=== PATIENT | female | born 2000 | race Caucasian/White ===

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

== ENCOUNTER 2020-07-05 16:23 | Emergency (ER) | payer SELFPAY ==
[2018-11-15 21:35] VITALS: BMI 33.6
[2020-07-05 16:24] VITALS: BP 143/88; PULSE 100; RESP 15; TEMP 36.2; O2SAT 100; BMI 30.5
--- NOTE | 2020-07-05 17:01 | ED.VISSUMM ---
- ER Visit Summary Date of Service: 07/05/20 Chief Complaint: Chemical burn History of Present Illness: The patient is a 20 F who presents with a chemical burn that occurred 1 week ago. Patient states that liquid soap got onto the dorsum of her right foot. Patient noted some discharge and drainage from the area initially but states she has not had any discharge or drainage for the last 4 days. Patient denies any paresthesias or weakness. Patient denies any fevers or chills. Patient denies any redness or streaking. Patient states her last tetanus was within 5 years. Physical Examination: Vital signs are stable. Patient is afebrile. Patient is in no acute distress. Skin is warm and dry. There is a superficial burn and mild erythema over the dorsum of the right foot. Sensation was intact to light touch in all areas of the burn. There is no discharge or drainage. There is full range of motion of the right foot. Capillary refill is less than 2 seconds in all digits. Pedal pulses are equal bilaterally. There is no calf tenderness. There is no pain over the ankle. Emergency Department Course and Treatment: Bacitracin dressing was applied. Patient was instructed to keep area clean. Patient was instructed to change the dressing twice daily. Patient was instructed to follow-up with her primary care physician in 5 to 7 days. Patient understood and was agreeable with the plan. All questions were answered. Disposition: Discharge home Impression: Chemical burn right foot This note was generated with [employer] dictation software. It may contain incorrect words, spelling, and punctuation that were not noted in review of the chart prior to signing ED Disposition - Plan for ED Patient: Disposition: Home or Assisted Living Diagnosis: Chemical burn of right foot Instructions: ED BURN Chemical Referrals: NOT,DEFINED [Primary Care Provider] - 5-7 Days
== END 2020-07-05 17:31 | disposition home or self-care (01) ==
LOC: ED 17:26
PROVIDERS: Emergency Provider Emergency Medicine
DX: T25.421A Corrosion of unspecified degree of right foot, initial encounter (principal); X08.8XXA Exposure to other specified smoke, fire and flames, initial encounter; Y93.9 Activity, unspecified; Y92.9 Unspecified place or not applicable
CPT/HCPCS: 99281

== ENCOUNTER 2020-10-28 00:52 | Observation (INO) | payer OTHER, SELFPAY ==
[2020-10-28] VITALS (16 sets, daily range): BP systolic 117–149; BP diastolic 57–82; PULSE 87–99; RESP 14–19; TEMP 36.6–37.4; O2SAT 98–100; BMI 29.8
--- NOTE | 2020-10-28 01:05 | ED.DCSUM_ITS ---
History of Present Illness Chief Complaint: Abd Pain Informant: Patient Onset: Yesterday Current Severity: Moderate Maximum Severity: Moderate Narrative: Patient presents secondary to lower abdominal pain and cramping. Patient states pain started last evening and is a constant tight cramp. She has a history of PCOS and states that she always has vaginal bleeding. She is been passing larger clots tonight than normal. She has not yet taken anything for pain. - Past Medical History (1) PCOS (polycystic ovarian syndrome) Status: Chronic Past Medical History - Allergies and Home Meds Allergies/Adverse Reactions: Allergies No Known Allergies Allergy (Verified 10/28/20 00:58) Primary Care Physician: Care Physician,No Primary [Primary Care Provider] - Surgical History: no surgical history Smoking Status: Never smoker - Family History Maternal Family History: Reports: Hypertension Paternal Family History: Reports: - - Patient does not know. Review of Systems General: Denies: Chills, Fever Eyes: Denies: Visual changes - bilaterally ENT: Denies: Bilateral ear pain Cardiovascular: Denies: Chest pain Respiratory: Denies: Dyspnea, Cough Gastrointestinal: Reports: Abdominal pain. Denies: Vomiting, Diarrhea Genitourinary: Denies: Dysuria Musculoskeletal: Denies: Swelling, Extremity Pain Skin: Denies: Rash, Wounds Hematologic: Denies: Easy bruising, Easy bleeding Allergy: Denies: Uticaria Physical Exam Vital Signs/Narrative: Vital Signs Temp Pulse Resp BP Pulse Ox 10/28/20 00:53 98 F 140 H 18 149/74 H 98 Inital Vital Signs reviewed: Yes General: Well nourished, Well developed Head: Normocephalic ENT: Moist mucous membranes Neck: Supple Cardiovascular: Tachycardia Respiratory: No distress, CTA bilaterally Abdomen: Soft, Tender - Mild suprapubic tenderness to palpation, Hypoactive bowel sounds Skin: Pallor Neurological: Alert, Oriented x3 Psychological: Normal affect Diagnostic/Tx/Re-eval Laboratory Results 10/28/20 10/28/20 10/28/20 01:01 01:01 01:01 WBC 12.0 H RBC 3.66 L Hgb 6.0 L* Hct 23.6 L MCV 64.5 L MCH 16.4 L MCHC 25.4 L RDW Std Deviation 45.8 H RDW Coeff of Roz 19.9 H Plt Count 356 MPV 9.5 Immature Gran % (Auto) 0.500 Neut % (Auto) 87.8 H Lymph % (Auto) 7.9 L [place] % (Auto) 2.9 Eos % (Auto) 0.5 Baso % (Auto) 0.4 Absolute Neuts (auto) 10.5 H Absolute Lymphs (auto) 0.95 Nucleated RBC % 0 Diff Path Review May foll PT 12.8 INR 1.0 APTT 28.0 Sodium 138 Potassium 4.0 Chloride 108 H Carbon Dioxide 25.0 Anion Gap 5 BUN 14 Creatinine 0.74 Estim Creat Clear Calc 126.73 Est GFR (MDRD) Af Amer 127 Est GFR (MDRD) Non-Af 105 BUN/Creatinine Ratio 18.8 Glucose 130 H Calcium 9.2 Serum , Qual Crossmatch 10/28/20 10/28/20 01:01 01:02 WBC RBC Hgb Hct MCV MCH MCHC RDW Std Deviation RDW Coeff of Roz Plt Count MPV Immature Gran % (Auto) Neut % (Auto) Lymph % (Auto) [place] % (Auto) Eos % (Auto) Baso % (Auto) Absolute Neuts (auto) Absolute Lymphs (auto) Nucleated RBC % Diff Path Review PT INR APTT Sodium Potassium Chloride Carbon Dioxide Anion Gap BUN Creatinine Estim Creat Clear Calc Est GFR (MDRD) Af Amer Est GFR (MDRD) Non-Af BUN/Creatinine Ratio Glucose Calcium Serum , Qual NEGATIVE Crossmatch See Detail - Medical Decision Making Patient was given a small dose of fentanyl and Toradol to help with pain. Hemoglobin returns at 6. She has type and cross for 3 units. I will speak with TRAFFIC LAW ATTORNEY for admission and transfusion. Patient's heart rate was noted be 140 on arrival to the emergency room. Sitting at rest heart rate is 103. ED Disposition - Plan for ED Patient: Disposition: Acute Care Hospital [facility] Diagnosis: Acute blood loss anemia Referrals: Care Physician,No Primary [Primary Care Provider] -
[2020-10-28 01:10] LABS: Absolute Lymphocyte Count 0.95 X10^3/uL (0.83-4.51); Absolute Neutrophil Count 10.5 X10^3/uL (2.0-7.7); Basophil# 0.05 X10^3/uL; Basophil% 0.4 % (0-1); Eosinophil# 0.06 X10^3/uL; Eosinophils% 0.5 % (0-5); Hematocrit 23.6 % (37-47); Lymphocyte # 0.95 X10^3/ul (4.0); Lymphocyte % 7.9 % (19-41); Mean Corp Hgb Conc 25.4 g/dL (32-36); Mean Corpuscular Hgb 16.4 pg (27.0-32.0); Mean Corpuscular Volume 64.5 fL (81-99); Mean Platelet Vol. 9.5 fl (6.2-12.0); Monocyte# 0.35 X10^3/uL; Monocyte% 2.9 % (0-10); NRBC Flagged by Analyzer 0 % (0-5); Neutrophil # 10.49 X10^3/uL (2.7-7.7); Neutrophil % 87.8 % (47-70); Platelet Count 356 K/mm3 (150-450); RBC Distribution Width CV 19.9 % (11.6-14.6); RBC Distribution Width SD 45.8 fl (35.1-43.9); Red Blood Count 3.66 M/mm3 (4.2-5.4)
[2020-10-28] MEDS: 0.9% Normal Saline 1,000 ML 1000 ML IV (01:12)
[2020-10-28] MEDS: Ketorolac 15 MG/ML Vial IV (01:12)
[2020-10-28] MEDS: fentaNYL 100 MCG/2 ML Ampul 25 MCG IV (01:12)
[2020-10-28 01:15] LABS: Differential Indicated SCAN CRITERIA MET; Prothrombin Time (Protime)PT. 12.8 SECONDS (11.7-14.9)
[2020-10-28 01:16] LABS: Internal QC Validated? YES +Cl - CLEAR BKGD; Pregnancy, Serum, hCG Quali. NEGATIVE Negative
[2020-10-28 01:21] LABS: Anion Gap 5 (5-15); BUN 14 mg/dL (7-18); BUN/Creat Ratio 18.8 RATIO (10-20); Calcium,Total 9.2 mg/dL (8.5-10.1); Chloride 108 mmol/L (98-107); Creatinine, Serum 0.74 mg/dL (0.55-1.02); EST Glomerular Filtration Rate 105 mL/min (>60); Est Glom Filt Rate - Afr Amer 127 mL/min (>60); Estimated Creatinine Clearance 126.73 ml/min; Glucose 130 mg/dL (74-106); Sodium Level 138 mmol/L (136-145)
[2020-10-28] MEDS: DiphenhydrAMINE 50 MG/ML Syringe 25 MG IV (02:22)
--- NOTE | 2020-10-28 10:44 | PCM.HP.BLA ---
History and Physical Date of Admission: 10/28/20 History and Physical Sarina Talley, a 20 year old female 0 0 0 0 0, presents to the emergency room with extremely heavy bleeding. Hemoglobin was noted to be 6.5. -- Heavy Vaginal Bleeding -- Sarina was previously seen in the office in 2019 for oligomenorrhea with heavy menses. Patient was started on Iron and norethindrone 5 mg twice daily for the first 14 days of each cycle followed by 14 days of no medication. Patient states that she has stopped medication due to no refills about a year ago. Patient states that she did feel much better when taking the medications and cycles were more regular. She states that she was able to live a normal life. Patient states that since stopping the medications cycles have again become irregular and variable they are not as heavy as previously but she has had almost daily bleeding over the last 6 months. Patient also taking metformin for PCOS states that she was to follow up and have dose increased but had not followed up as suggested. Vaginal bleeding is extremely heavy with large clots; Additional comments are: to emergency room with orthostatic symptoms and HGB in the 6's.; Additional comments are: prior blood transfusion for hemoglobin in the fives, last evening received 3 units of packed red blood cells for recurrent severe bleeding from heavy menses. Patient has been attempting for about a year unsuccessfully. Her last pelvic ultrasound was approximately 3 to 4 years ago and was normal. MEDICATIONS HISTORY: Current medications prescribed by our practice are: 1. Colace 100 mg capsule, 1 tab PO bid prn constipation 2. ferrous gluconate 324 mg (38 mg iron) tablet, 1 tab PO bid 3. metformin ER 500 mg tablet,extended release 24 hr, 1 tab PO qdinner x 1 week, 2 tabs PO qdinner x 1 week, 2 tabs PO qbreakfast and dinner 4. norethindrone acetate 5 mg tablet, 2 tabs PO daily x 14 days each month; stopped about a year ago ALLERGIES: No Known Allergies Infections - vaccinated for chicken pox Illnesses - none Accidents - None Hospitalizations - None Review of Systems: GENERAL - Denies fever, or chills SKIN - Denies skin changes EYES - Denies visual changes EARS - Denies difficulty hearing NOSE - Denies nasal congestion or bleeding MOUTH - Denies sore throat or difficulty swallowing NECK - Denies pain or swelling RESPIRATORY - Denies shortness of breath or wheezing CARDIOVASCULAR - Denies palpitations or chest pain GASTROINTESTINAL - Denies nausea, vomiting, diarrhea, constipation GENITOURINARY - Denies dysuria, frequency of urination, incontinence of urine MUSCULOSKELETAL - Denies joint or muscle pain NEUROLOGICAL - Denies localized numbness or weakness PSYCHIATRIC - Denies depression or anxiety ENDOCRINE - Denies heat or cold intolerance, weight loss or gain HEMATO-IMMUNOLOGIC - Denies excesive bleeding with cuts SOCIAL HISTORY: Alcohol Use - denies drinking Smoking - denies smoking Diet - no special diet Lifestyle - moderate stress lifestyle Exercise - none Seat Belt Use - always 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 none PHYSICAL EXAM BP- 124/58 Sitting, Right arm, regular cuff Weight- 201 lbs Height- 65.5 inch CONSTITUTIONAL - NAD, well nourished, and well developed SKIN - No rash, lesions, or ulcers HEENT - normocephalic, atraumatic, sclerae anicteric LUNGS - normal respiratory rate and rhythm NEUROLOGICAL - normal gait, normal balance, normal motor PSYCHIATRIC - A and O to time, place, person, mood and affect ABDOMEN -no rebound or guarding but marked tenderness over suprapubic area likely from severe dysmenorrhea. No hepatosplenomegaly. ASSESSMENT/PLAN: 1. Acute posthemorrhagic anemia, Excessive And Frequent Menstruation With Irregular Cycle, Iron Deficiency Anemia Secondary To Blood Loss (chronic) and Polycystic Ovarian Syndrome History PCOS with likely anovulatory bleeding; will check pelvic ultrasound on day 10 of the cycle which would be November 3. Pt s/p transfusion for acute or chronic blood loss - anemia sx improved -CBC pending after 3 units last evening Reviewed importance of addressing underlying issue -patient is desirous of so we will start Prometrium on day 20 of cycle which would be November 14. Will then start letrozole or Clomid next cycle. We will give Ultram for severe dysmenorrhea with this cycle. Given the severity of dysmenorrhea and some tenderness over the uterus, will give Rocephin and doxycycline. Continue Metformin
--- NOTE | 2020-10-28 11:06 | DCINST_ITS ---
- Discharge Diagnoses Current Active Problems: Current Active and Chronic Problems (Last Updated 11/15/18 @ 20:[address] Tye Sanabria MD) Acute blood loss anemia (Acute) PCOS (polycystic ovarian syndrome) (Chronic) You will use the following diet at home:: No restrictions, Regular Discharge Activity: Return to Normal Activity, May Shower, May Take a Tub Bath May resume sexual activity in: 1-2 weeks Call your doctor if your incision/area has: Sudden Increased Bleeding, Increased Pain/ Swelling Call your doctor if you observe: Fever of 101 or Higher, Inability to urinate, Inability to have a bowel movement, Using more than one pad per hour Allergies/Adverse Reactions: Allergies No Known Allergies Allergy (Verified 10/28/20 00:58) Medications to take at Discharge Doxycycline 100 mg PO BID 10 Days #20 cap 10/28/20 Progesterone,Micronized [Prometrium] 200 mg PO DAILY #10 cap 10/28/20 traMADol [Ultram (G)] 50 mg PO Q6H PRN PRN 7 Days #20 tab 10/28/20 The following prescriptions were given: Doxycycline 100 mg PO BID 10 Days #20 cap Transmission Status: Pending to [facility] Progesterone,Micronized [Prometrium] 200 mg PO DAILY #10 cap Transmission Status: Pending to [facility] traMADol [Ultram (G)] 50 mg PO Q6H PRN PRN 7 Days #20 tab PRN Reason: Pain Score 6-10 Transmission Status: Pending to [facility] Primary Care Physician: Care Physician,No Primary [Primary Care Provider] - Test Results: Test results from this visit will be discussed in further detail at your follow- up appointment, if applicable. Please Follow Up With: Ziyad Mcdowell MD When: Call the office for an office ultrasound appointment for November 07, 2020.
[2020-10-28] MEDS: traMADol 50 MG Tablet PO (11:44)
[2020-10-28] MEDS: Ceftriaxone 500 MG Vial 250 MG IM (12:47)
[2020-10-29 13:32] LABS: Pathologist Review Reviewed
== END 2020-10-28 11:09 | disposition home or self-care (01) ==
LOC: ED 01:39 → PCU 02:05
PROVIDERS: Admitting Provider Obstetrics & Gynecology; Emergency Provider Emergency Medicine; Visit Provider Obstetrics & Gynecology
DX: D62 Acute posthemorrhagic anemia (principal); N92.0 Excessive and frequent menstruation with regular cycle; E28.2 Polycystic ovarian syndrome; N94.6 Dysmenorrhea, unspecified
CPT/HCPCS: 36415; 36430; 80048; 84703; 85018; 85025; 85610; 85730; 86850; 86900; 86901; 86920; 96372; 96374; 96375; 99218; 99285; 99406; J7030; J7040; P9016; A4216; G0378

== ENCOUNTER → 2020-11-07 13:48 | Outpatient (CLI) | payer OTHER, SELFPAY ==
[2020-10-28 03:10] VITALS: BMI 29.8
[2020-11-07 15:28] LABS: Hematocrit 33.8 % (37-47); Hemoglobin 9.4 g/dL (12.0-15.0)
[2020-11-07 16:03] LABS: Thyroid Stim Hormone (TSH) 1.63 uIU/mL (0.358-3.74)
== END ==
LOC: WOBLAB 13:49
PROVIDERS: Visit Provider Obstetrics & Gynecology
DX: D50.0 Iron deficiency anemia secondary to blood loss (chronic) (principal)
CPT/HCPCS: 36415; 84443; 85014; 85018

== ENCOUNTER 2020-11-08 09:26 | Day surgery (SDC) | payer OTHER, SELFPAY ==
[2020-10-28 03:10] VITALS: BMI 29.8
--- NOTE | 2020-11-07 20:58 | HP.PCM_ITS ---
History and Physical Date of Admission: 11/08/20 HISTORY OF PRESENT ILLNESS: On 11/07/2020, Sarina Talley, a 20 year old female 0 0 0 0 0, presented for: -- Menorrhagia, Blood Loss Anemia -- Sarina presents here today for ED follow-up from Abdominal pain with chronic blood loss(records attached). 20 y.o. G 0 P 0 non-smoker with irregular bleeding with LMP of 11-02-20 with continual bleeding daily. 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 Medication and Allergy lists up-dated. PAULIE Still bleeding about like when she went to ER. -- heavy vaginal bleeding which began 5 days ago. Sarina claims it started gradually. It is located in the vagina. Severity is extremely heavy with large clots; stopped this AM. Additional comment: This was third transfusion for blood loss. ALLERGIES: No Known Allergies MEDICATIONS HISTORY: Current medications prescribed by our practice are: 1. Colace 100 mg capsule, 1 tab PO bid prn constipation 2. ferrous gluconate 324 mg (38 mg iron) tablet, 1 tab PO bid 3. metformin ER 500 mg tablet,extended release 24 hr, 1 tab PO qdinner x 1 week, 2 tabs PO qdinner x 1 week, 2 tabs PO qbreakfast and dinner 4. norethindrone acetate 5 mg tablet, 2 tabs PO daily x 14 days each month REVIEW OF SYSTEMS: GENERAL - Denies fever, or chills SKIN - Denies skin changes EYES - Denies visual changes EARS - Denies difficulty hearing NOSE - Denies nasal congestion or bleeding MOUTH - Denies sore throat or difficulty swallowing NECK - Denies pain or swelling RESPIRATORY - Denies shortness of breath or wheezing CARDIOVASCULAR - Denies palpitations or chest pain GASTROINTESTINAL - Denies nausea, vomiting, diarrhea, constipation GENITOURINARY - Denies dysuria, frequency of urination, incontinence of urine MUSCULOSKELETAL - Denies joint or muscle pain NEUROLOGICAL - Denies localized numbness or weakness PSYCHIATRIC - Denies depression or anxiety ENDOCRINE - Denies heat or cold intolerance, weight loss or gain HEMATO-IMMUNOLOGIC - Denies excesive bleeding with cuts PAST HISTORY: Breast/Ovarian/Colon Cancers - maternal great aunt, maternal grandmother breast ca Infections - vaccinated for chicken pox Illnesses - none Accidents - None History of Abnormal PAPS - na Hospitalizations - None SURGICAL HISTORY: 1. none MENSTRUAL HISTORY: LMP Known?- ApproximateAmount/Duration - extended, Regularity - Irregular, Frequency - variable days, LMP - 11/02/20, Age Onset Menarche - 10 PAST PREGNANCIES: Total Pregnancies - 0; Full Term Pregnancies - 0; Premature - 0; Abortions, Induced - 0; Abortions, Spontaneous - 0; Ectopics - 0; Multiple Births - 0; Living Children - 0 FAMILY HISTORY: Mother - Gestational Diabetes; Mother - FH: Hypertension; MaternalGrandparent - Carcinoma of breast; SOCIAL HISTORY: Alcohol Use - denies drinking Smoking - denies smoking Diet - no special diet Lifestyle - moderate stress lifestyle and engaged Exercise - none Seat Belt Use - always 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 Excessive And Frequent Menstruation With Irregular Cycle PLAN BY DIAGNOSIS: 1. Acute posthemorrhagic anemia, Excessive And Frequent Menstruation With Irregular Cycle, Iron Deficiency Anemia Secondary To Blood Loss (chronic) and Polycystic Ovarian Syndrome Pt s/p transfusion for acute on chronic blood loss. Still bleeding. U/S shows large amount of tissue in the uterus but no fibroids. Plan to proceed with D and C and H/S. Discussed RBAs and all questions answered. Continue Norethindrone as given at discharge. Continue Metformin.
[2020-11-08] VITALS (11 sets, daily range): BP systolic 124–135; BP diastolic 75–90; PULSE 83–95; RESP 14–18; TEMP 36.4–36.5; O2SAT 96–100; BMI 29.5
--- NOTE | 2020-11-08 | IMM_PTH ---
PATIENT: ADDIS TORRES LOC: [facility] [place][id number] AGE/SX: 20/F ROOM: RE11/08/[address]: Dr. Ziyad Mcdowell MD : 2000 BED: DIS: 11/08/2020 SPEC #: [id number] RECD: 11/19/20 12:31 STATUS: IVANIA REJackie #: [id number] DEJUAN: 11/08/20 00:[address]: Ziyad Mcdowell DEPT: IMMUNOHISTOCHEMISTRY RECD BY: Danita Mixon ENTERED: 11/19/20 12:33 SP TYPE: IMMUNO OTHR DR: No Primary Care Phys Tissues: Endometrium, NOS Procedures: P53 (initial) MSH2 (add) MLH-1 (add) MSH6 (add) Anti-PMS2 (add) PHYSICIAN & INSTITUTION [place] [phone] SPECIMEN INFORMATION: Tissue Source: Endometrial curettings Clinical Info: Anemia, polycystic ovarian syndrome Specimen Number: [id number] #5 CPT code: 90487, 83243 x4 METHODOLOGY: Deparaffinized sections of prefer/formalin-fixed tissue or PAP/DQ stained slides are incubated with monoclonal/polyclonal antibodies/oligonucleotide probes. Localization is made via biotin free immunoperoxidase method. Appropriate controls are performed and reacted as expected. Results on target cell population are indicated in the following table: RESULTS: ANTIBODY / CLONE RESULT Block 5 P53 (DO-7) positive, 2%, dim MLH-1 (M1) positive MSH2 (25D12) positive MSH6 (44) positive PMS2 ([id number]) positive These tests were developed and their performance characteristics determined by [facility]. They may not have been cleared or approved by the U.S. Food and Drug Administration. The FDA has determined that such clearance or approval is not necessary. The above immunohistochemical/dualISH markers are ordered and reviewed by the Pathologist. INTERPRETATION: Endometrium, curettings: Endometrial adenocarcinoma. Result of Microsatellite Instability Study: Negative (no loss of mismatch protein; no microsatellite instability detected). AM:manan 11/20/2020
[2020-11-08 10:11] LABS: Hematocrit 36.2 % (37-47); Hemoglobin 10.2 g/dL (12.0-15.0); Mean Corp Hgb Conc 28.2 g/dL (32-36); Mean Corpuscular Hgb 20.9 pg (27.0-32.0); Mean Corpuscular Volume 74.3 fL (81-99); Mean Platelet Vol. 9.3 fl (6.2-12.0); POSITIVE MORPHOLOGY YES; Platelet Count 393 K/mm3 (150-450); RBC Distribution Width CV 26.8 % (11.6-14.6); RBC Distribution Width SD 69.3 fl (35.1-43.9); Red Blood Count 4.87 M/mm3 (4.2-5.4); White Blood Count 9.2 K/mm3 (4.4-11.0)
[2020-11-08 10:22] LABS: Prothrombin Time (Protime)PT. 12.7 SECONDS (11.7-14.9)
[2020-11-08 10:23] LABS: Partial Thromboplast Time 28.1 Seconds (24.1-36.2)
[2020-11-08 10:25] LABS: Internal QC Validated? YES +Cl - CLEAR BKGD; Pregnancy, Serum, hCG Quali. NEGATIVE Negative
[2020-11-08] MEDS: Lactated Ringers 1,000 ML 100 ML IV ×2 (10:28→13:15)
[2020-11-08 11:01] LABS: Scan Indicated on CBC? Y/N YES- FLAGS NOTED
--- NOTE | 2020-11-08 11:20 | PCM.OPRPT ---
Report of Operation Date of Procedure: 11/08/20 Pre-Operative Diagnosis: Menorrhagia, Blood Loss Anemia Post-Operative Diagnosis: Menorrhagia, Blood Loss Anemia Surgery/Procedure Performed:: Diagnostic Hysteroscopy, Dilation and Curettage Description of Surgical Findings:: 12 cm endometrial cavity with copious amounts of endometrial tissue present. No evidence of fibroids. Cervix appeared normal. Type of Anesthesia:: MAC Anesthesiologist: Moy Hernandez Specimen's removed: Endometrial curettings Estimated Blood Loss (mL): Minimal Fluids Replaced: Crystalloid Description of Procedure: Surgeon: Ziyad Mcdowell MD, FACOG Indications: This is a 20 year old patient who has the above diagnosis. The patient has been counseled regarding the risk and indications of this procedure including the possibility of bleeding, infection, and injury to surrounding structures such as bowel bladder. All questions were answered and we consider the patient well-informed. Procedure: The patient was taken to the operating room where after induction of general anesthesia, she was placed in the dorsolithotomy position and prepped and draped in the usual sterile fashion. The bladder was drained of approximately 200 cc of clear yellow urine with a catheter. Anterior cervix was grasped with the tenaculum and dilated to about 4-5 mm. A 3 mm hysteroscope was placed in the uterus of the above findings were noted. Cervix was dilated to about 7-8 mm and uterus was gently curetted removing all contents. Hysteroscope was reinserted and all material was noted to be removed. In the course of the procedure approximately 100 cc of saline distending media was used and virtually all of this was recovered. IV Pitocin and IM Methergine were given in the course of the procedure. Patient tolerated procedure well was taken to recovery room in satisfactory condition sponge instrument and needle counts were all reportedly correct. Estimated blood loss for the case was 250 cc. Specimens to pathology was endometrial curettings Complications: None Grafts/Implants Used: None - Complications None - Admit VTE Documentation VTE Present on Admission: Yes VTE Mechan Device Prophylaxis: SCD's
--- NOTE | 2020-11-08 11:24 | DCINST_ITS ---
Discharge Diet: No Restrictions Discharge Activity: Return to Normal Activity, May Shower, May Take a Tub Bath Call your doctor if you observe: Fever of 101 or Higher, Inability to urinate, Inability to have a bowel movement, Using more than one pad per hour Allergies/Adverse Reactions: Allergies No Known Allergies Allergy (Verified 10/28/20 00:58) Medications to take at Discharge Progesterone,Micronized [Prometrium] 200 mg PO DAILY #10 cap 10/28/20 Methylergonovine [Methergine] 0.2 mg PO Q6H #14 tab 11/08/20 RX: Ferrous Gluconate 325 mg PO BIDCM #60 tab 11/08/20 The following prescriptions were given: RX: Ferrous Gluconate 325 mg PO BIDCM #60 tab Transmission Status: Pending to [facility] Methylergonovine [Methergine] 0.2 mg PO Q6H #14 tab Transmission Status: Pending to [facility] Primary Care Physician: Care Physician,No Primary [Primary Care Provider] - Test Results: Test results from this visit will be discussed in further detail at your follow- up appointment, if applicable. Please Follow Up With: Ziyad Mcdowell MD When: 2 to 3 weeks
[2020-11-08] MEDS: Cefotetan 2 GM in 0.9% NS 100 ML IV (11:25)
--- NOTE | 2020-11-08 11:30 | EMB_PTH ---
PATIENT: ADDIS TORRES LOC: [facility] U#:[id number] AGE/SX: 20/F ROOM: RE11/08/[address]: Dr. Ziyad Mcdowell MD : 2000 BED: DIS: 11/08/2020 SPEC #: [id number] RECD: 11/08/20 14:22 STATUS: IVANIA REJackie #: [id number] DEJUAN: 11/08/20 11:[address]: Ziyad Mcdowell DEPT: SURGICAL PATHOLOGY RECD BY: Ana Pack ENTERED: 11/09/20 08:37 SP TYPE: ENDOM BX/C HARDY DR: No Primary Care Phys Tissues: Endometrium, NOS Procedures: Surgery Specimen Level IV HEADER OPERATION: Hysteroscopy, dilation and curettage PRE-OP DIAGNOSIS: Acute post-hemorrhagic anemia, excessive and frequent menstruation with irregular cycle, iron deficiency anemia secondary to blood loss, polycystic ovarian syndrome TISSUE SUBMITTED: Endometrial curettings MICROSCOPIC DIAGNOSIS Endometrial curettings: Endometrial adenocarcinoma, endometrioid type, FIGO I. See comment. ISAURA:manan 11/15/2020 COMMENT The specimen is sent to [facility] for expert opinion and reviewed by Dr. Still and above diagnosis is rendered. The complete report is viewable in the patient's EMR. The specimen also shows extensive complex hyperplasia with atypia. This case is discussed with Dr. Mcdowell on 11/13/19 & 11/16/19. Case has been reviewed in consultation with Dr. Clifford who concurs with the above diagnosis. IDC:AM MICROSCOPIC DESCRIPTION Slides are reviewed. GROSS DESCRIPTION Received in fixative is one container labeled with the patient's name and designated endometrial curettings. The specimen consists of multiple irregular fragments of suggs soft tissue mixed with numerous blood clots that in aggregate measure 10 x 8 x 4 cm. Migratory [employer] tissue is submitted in 15 cassettes. 90% of the suggs soft tissue is submitted. / ISAURA:manan 11/09/20 TC:0 CPT: 27979
[2020-11-08] MEDS: Acetaminophen 325 MG Tablet 650 MG PO (13:37)
== END 2020-11-08 14:44 | disposition home or self-care (01) ==
LOC: SDC 09:28 → AC 09:29
PROVIDERS: Anesthesiology; Visit Provider Obstetrics & Gynecology
PROC: 0UDB8ZZ Extraction of Endometrium, Via Natural or Artificial Opening Endoscopic (ICD-10-PCS; CPT 58558; principal; 2020-11-08 11:20)
DX: N92.0 Excessive and frequent menstruation with regular cycle (principal); D62 Acute posthemorrhagic anemia; E28.2 Polycystic ovarian syndrome
CPT/HCPCS: 58558; 84703; 85027; 85610; 85730; 86850; 86900; 86901; 87426; 88305; 88341; 88342; J7120; J2405

== ENCOUNTER → 2020-11-21 | Outpatient (CLI) | payer OTHER, SELFPAY ==
[2020-11-08 10:20] VITALS: BMI 29.5
== END | disposition home or self-care (01) ==
LOC: LABSPEC 14:22
PROVIDERS: Visit Provider Obstetrics & Gynecology
DX: R30.0 Dysuria (principal)
CPT/HCPCS: 87086; 87088

== ENCOUNTER → 2020-11-29 13:17 | Outpatient (CLI) | payer OTHER, SELFPAY ==
[2020-11-08 10:20] VITALS: BMI 29.5
--- NOTE | 2020-11-29 13:24 | MRI_ITS ---
MRI Pelvis without and with contrast 11/29/2020 1:43 PM CLINICAL HISTORY: Endometrial cancer COMPARISON: None TECHNIQUE: Prior to and following the uneventful intravenous administration of contrast, T1 and T2 weighted images in multiple planes were obtained through the pelvis. Prior to contrast administration, diffusion-weighted images were obtained through the pelvis. FINDINGS: UTERUS: Measures 11.2 x 6.4 x 9.2 cm TUMOR SITE: anterior TUMOR SIZE: Approximately 4.9 x 1.6 x 5.9 cm. MYOMETRIAL INVASION: less than 50% myometrial wall thickness invasion Invasion of the tumor into the cervix stroma: no Extension of tumor into adjacent structures: none; absence of ureteral dilatation. OVARIES: The ovaries are visualized and are abnormal in appearance. Right Ovary measures 4.5 x 2.2 x 3.7 cm and left ovary measures 4.2 x 2.4 x 4.2 cm. They each contain greater than 20 follicles. LYMPH NODES: There are few lymph nodes. The largest pelvic lymph nodes are located in the external iliac chain and measure 1.4 cm on the right and 1.5 cm on the left. These lymph nodes are less likely to be malignant. ADDITIONAL PELVIC FINDINGS: None BONES: No aggressive bone lesions. MRI/Pelvis W/WO Contrast IMPRESSION: Stage Ia endometrial cancer. No evidence of local invasion of surrounding structures or distant metastatic disease. Few prominent external iliac chain lymph nodes. Recommend close attention on follow-up. Polycystic ovarian syndrome. Electronically Signed: Boy Dee MD at 16:20 EDT Tel , Service support ,
== END ==
PROVIDERS: Referring Provider Obstetrics & Gynecology Gynecologic Oncology; Visit Provider Obstetrics & Gynecology Gynecologic Oncology
DX: C54.1 Malignant neoplasm of endometrium (principal)
CPT/HCPCS: 72197; A9575

== ENCOUNTER 2020-12-30 02:21 | Emergency (ER) | payer OTHER, SELFPAY ==
[2020-11-08 10:20] VITALS: BMI 29.5
[2020-12-30 02:21] VITALS: BP 140/109; PULSE 112; PULSE 116; RESP 15; TEMP 36.3; O2SAT 99; BMI 30.8
[2020-12-30 02:24] VITALS: BP 140/109; PULSE 118; RESP 15; TEMP 36.3; O2SAT 99
--- NOTE | 2020-12-30 02:28 | CT_ITS ---
STUDY: CTA CHEST REASON FOR EXAM: Female, 20 years old patient with dyspnea. RADIATION DOSAGE (If Supplied By Facility): CTDIvol = ( 11.33 ) mGy, DLP = ( 502.69 ) mGycm TECHNIQUE: The examination was performed with the intravenous administration of 100 mL of Isovue-370. Post-processing of the angiographic images was performed, with multiplanar reformation and 3D reconstruction. Individualized dose optimization techniques were used for this CT. COMPARISON: None. FINDINGS: Normal enhancement of the main pulmonary artery and right and left pulmonary arteries. Normal enhancement of the bilateral peripheral pulmonary arteries. There is no demonstrated pulmonary embolism. Normal thoracic aorta and visualized great vessels. There is no demonstrated aortic dissection. Normal heart and pericardium. Normal mediastinum. Normal hilar regions. Normal visualized trachea and bronchi. The lungs are well expanded. Normal pulmonary parenchyma. Normal pleura. Normal chest wall structures. Normal osseous structures. Normal visualized upper abdomen. There is a ureteral stent within the left renal collecting system. CT/CTA Chest W/WO Contrast IMPRESSION: No CTA demonstrated pulmonary embolism or arterial dissection. Electronically Signed: Zahida George MD at 4:05 EDT , Service support ,
--- NOTE | 2020-12-30 02:28 | EKG12_ITS ---
Test Reason : SOB Blood Pressure : / mmHG Vent. Rate : 102 BPM Atrial Rate : 102 BPM P-R Int : 140 ms QRS Dur : 082 ms QT Int : 324 ms P-R-T Axes : 042 069 041 degrees QTc Int : 422 ms Sinus tachycardia Otherwise normal ECG Confirmed by VANNESA MARTINEZ, PREM ([id number]), story editor KISHOR SOUZA ([id number]) on 01/02/2021 8:48:27 AM Referred By: PRICILLA Confirmed By:PREM GRANADO MD
[2020-12-30 02:31] VITALS: BP 136/93
--- NOTE | 2020-12-30 02:32 | ED.DCSUM_ITS ---
History of Present Illness Chief Complaint: Shortness of Breath Informant: Patient Onset: Yesterday Context: Gradual Onset Timing: Continuous Current Severity: Moderate Maximum Severity: Moderate Narrative: Patient is a 20-year-old female who presents to the emergency department shortness of breath. The patient has had a rather complex recent medical history. She was found to have stage Ia invasive endometrial cancer. She underwent hysterectomy which was complicated by uterine injury. The patient was admitted at [facility]. They attempted nephrostomy tube, but were unable to place it. She had a stent that was placed and she was discharged yesterday. The patient does have a PICC line and is on IV antibiotics with her recent procedure. She has not started any chemo or radiation. About 6 PM, she started to feel some shortness of breath. She describes tightness in the middle of her chest. She states they called squad, but she was feeling improved at the time they got there. Tonight, her symptoms returned. She states she cannot lie flat without feeling short of breath. She denies fever. She denies cough. Prior similar symptoms: No Recent Illness/Hospitalization: Yes Past Medical History - Allergies and Home Meds Allergies/Adverse Reactions: Allergies No Known Allergies Allergy (Verified 10/28/20 00:58) Primary Care Physician: Care Physician,No Primary [Primary Care Provider] - Prior records reviewed: Yes Past Medical History: - - Endometrial cancer, uterine injury, stent placement Surgical History: hysterectomy Smoking Status: Never smoker - Family History Maternal Family History: Reports: Hypertension Paternal Family History: Reports: - Review of Systems General: Denies: Chills, Fever, Sweats Eyes: Denies: Visual changes - bilaterally, Diplopia ENT: Denies: Rhinorrhea, Sore throat Cardiovascular: Denies: Chest pain, Palpitations Respiratory: Reports: Dyspnea, Cough Gastrointestinal: Denies: Abdominal pain, Nausea, Vomiting, Diarrhea, Melena, Hematochezia Genitourinary: Denies: Dysuria, Hematuria, Frequency Musculoskeletal: Denies: Back pain, Extremity Pain Skin: Denies: Rash, Wounds Neurological: Denies: Headache, Weakness, Numbness Physical Exam Vital Signs/Narrative: Vital Signs Temp Pulse Resp BP Pulse Ox 12/30/20 02:31 136/93 H 12/30/20 02:24 97.4 F L 118 H 15 140/109 H 99 12/30/20 02:21 97.4 F L 116 H 15 140/109 H 99 Inital Vital Signs reviewed: Yes General: Well nourished, Well developed, No Acute Distress Head: Normocephalic, Atraumatic Eyes: Perrl, EOMI ENT: Moist mucous membranes, No rhinorrhea Neck: Supple, Nontender Cardiovascular: No murmurs, Tachycardia Respiratory: No distress, CTA bilaterally, Chest nontender Abdomen: Soft, Nontender, Nondistended, Normal bowel sounds Back: Nontender, Normal Inspection Extremities: Nontender, No edema Skin: Normal color, No rash Neurological: Alert, Oriented x3, Cranial nerves II-XII grossly intact, Normal Strength, Normal Sensation Psychological: Normal affect, Normal Mood Diagnostic/Tx/Re-eval Clinical Impression(s) from Imaging Studies Chest CTA 12/30/20 02:28 IMPRESSION: No CTA demonstrated pulmonary embolism or arterial dissection. Electronically Signed: Zahida George MD at 4:05 EDT , Service support , Abnormal Lab Results 12/30/20 12/30/20 02:35 02:35 WBC 12.6 H RBC 4.56 Hgb 11.8 L Hct 37.9 MCV 83.1 MCH 25.9 L MCHC 31.1 L RDW Std Deviation 47.8 H RDW Coeff of Roz 17.6 H Plt Count 354 MPV 8.3 Immature Gran % (Auto) 0.500 Neut % (Auto) 71.1 H Lymph % (Auto) 18.9 L [place] % (Auto) 6.3 Eos % (Auto) 3.0 Baso % (Auto) 0.2 Absolute Neuts (auto) 9.0 H Absolute Lymphs (auto) 2.38 Nucleated RBC % 0 Sodium 138 Potassium 3.8 Chloride 106 Carbon Dioxide 27.0 Anion Gap 5 BUN 11 Creatinine 0.70 Estim Creat Clear Calc 133.98 Est GFR (MDRD) Af Amer 135 Est GFR (MDRD) Non-Af 112 BUN/Creatinine Ratio 15.6 Glucose 105 Calcium 9.3 Total Bilirubin 0.30 AST 9 L ALT 25 Alkaline Phosphatase 56 Total Protein 7.9 Albumin 3.3 Globulin 4.6 H Albumin/Globulin Ratio 0.7 L - Rhythm Strip Rhythm Strip: Sinus Tach Rate: 110 - EKG Initial EKG Interpretation: No Acute Injury Pattern, Sinus Tachycardia Prior: No Prior - Medical Decision Making Patient presents with shortness of breath. She states that it is worse when she lays flat. She did have recent hospitalization, with surgical procedure. I did want to rule out pulmonary embolus especially in light of her tachycardia. She was 99% on room air without bronchospasm. She was not tachypneic. Screening labs were obtained. The patient's hemoglobin is actually increased since her surgery. Her metabolic panel was unremarkable. Patient underwent CTA. There is no evidence of pulmonary embolus. There is no pneumothorax, infiltrate, or atelectasis. Patient still maintains oxygen saturations greater than 98%. At this point, I am unclear of the acute etiology of her dyspnea but I do not feel represents a dangerous process. The patient is reassured. Questions were answered. She was counseled on concerning symptoms and reasons to return. She will be discharged home. Impression 1. Shortness of breath ED Disposition - Plan for ED Patient: Disposition: Home or Assisted Living Instructions: ED Dyspnea Referrals: Care Physician,No Primary [Primary Care Provider] -
[2020-12-30 02:41] LABS: Absolute Lymphocyte Count 2.38 X10^3/uL (0.83-4.51); Basophil# 0.03 X10^3/uL; Basophil% 0.2 % (0-1); Eosinophil# 0.38 X10^3/uL; Hematocrit 37.9 % (37-47); Hemoglobin 11.8 g/dL (12.0-15.0); Lymphocyte # 2.38 X10^3/ul (0.83-4.51); Lymphocyte % 18.9 % (19-41); Mean Corp Hgb Conc 31.1 g/dL (32-36); Mean Corpuscular Hgb 25.9 pg (27.0-32.0); Mean Corpuscular Volume 83.1 fL (81-99); Mean Platelet Vol. 8.3 fl (6.2-12.0); Monocyte# 0.79 X10^3/uL; Monocyte% 6.3 % (0-10); NRBC Flagged by Analyzer 0 % (0-5); Neutrophil # 8.98 X10^3/uL (2.7-7.7); Neutrophil % 71.1 % (47-70); Platelet Count 354 K/mm3 (150-450); RBC Distribution Width CV 17.6 % (11.6-14.6); RBC Distribution Width SD 47.8 fl (35.1-43.9); Red Blood Count 4.56 M/mm3 (4.2-5.4); White Blood Count 12.6 K/mm3 (4.4-11.0)
--- NOTE | 2020-12-30 02:41 | ED.RN ---
pt had PICC line in place prior to arrival in left upper arm. intact, patent, pink. no s/s of infection. blood draw went well.
[2020-12-30 02:58] LABS: ALB/GLOB Ratio 0.7 RATIO (0.9-2.4); AST(SGOT) 9 U/L (15-37); Alanine Aminotransfer ALT/SGPT 25 U/L (13-56); Albumin, Serum 3.3 g/dL (3.2-5.0); Alkaline Phosphatase 56 U/L (45-117); Anion Gap 5 (5-15); BUN 11 mg/dL (7-18); BUN/Creat Ratio 15.6 RATIO (10-20); Calcium,Total 9.3 mg/dL (8.5-10.1); Chloride 106 mmol/L (98-107); EST Glomerular Filtration Rate 112 mL/min (>60); Est Glom Filt Rate - Afr Amer 135 mL/min (>60); Estimated Creatinine Clearance 133.98 ml/min; Globulin 4.6 g/dL (2.2-4.2); Glucose 105 mg/dL (74-106); Potassium 3.8 mmol/L (3.5-5.1); Protein, Total 7.9 g/dL (6.4-8.2); Sodium Level 138 mmol/L (136-145)
[2020-12-30] MEDS: Ondansetron 4 MG/2 ML Vial IV (03:18)
[2020-12-30] MEDS: DiphenhydrAMINE 50 MG/ML Syringe IV (03:19)
[2020-12-30 04:21] VITALS: BP 150/117; PULSE 112; RESP 26; O2SAT 98
== END 2020-12-30 04:23 | disposition home or self-care (01) ==
PROVIDERS: Emergency Provider Emergency Medicine
DX: R06.02 Shortness of breath (principal); R05 Cough; R07.89 Other chest pain; C54.1 Malignant neoplasm of endometrium; Z90.710 Acquired absence of both cervix and uterus
CPT/HCPCS: 36592; 71275; 80053; 85025; 93005; 96361; 96374; 96375; 99283; J7030; Q9967; A4216; J2405

== ENCOUNTER 2021-01-05 14:19 | Emergency (ER) | payer OTHER, SELFPAY ==
[2021-01-05 14:20] VITALS: BP 128/90; PULSE 116; RESP 16; TEMP 36.3; O2SAT 98; BMI 29.9
--- NOTE | 2021-01-05 14:58 | CT_ITS ---
STUDY: CT ABDOMEN AND PELVIS WITH CONTRAST REASON FOR EXAM: Female, 20 years old. 2 weeks s/p hysterectomy w L ureter lac RADIATION DOSAGE (If Supplied By Facility): CTDIvol = ( 12.52 ) mGy, DLP = ( 1351.12 ) mGycm TECHNIQUE: Transaxial images were obtained from the dome of the diaphragm to the symphysis pubis without oral contrast. 100ML ISOVUE 300 was administered. Sagittal and coronal images were reconstructed. Individualized dose optimization techniques were used for this CT. COMPARISON: MRI pelvis 11/29/2020 FINDINGS: The visualized lung bases are unremarkable. The visualized portions of the heart are within normal limits. Normal liver. Normal gallbladder and extrahepatic biliary system. Normal spleen. Normal pancreas. Normal bilateral adrenal glands. Normal right kidney. A ureter stent extends from the left kidney to the urinary bladder. Mild amount of periureteral edema. No hydronephrosis. Normal visualized stomach. Normal small intestine. Normal colon. The appendix is visualized and appears normal. Normal abdominal aorta. Normal inferior vena cava. Normal retroperitoneum. Normal urinary bladder. There is absence of the uterus consistent with a prior hysterectomy. There is a trace quantity of free fluid. Mild enlargement of the ovaries correlates to polycystic ovarian syndrome evident on MRI. Normal abdominal wall. Normal osseous structures. CT/Abdomen/Pelvis W IV Cont ONLY IMPRESSION: 1. Interval hysterectomy. 2. Left ureteral stent. Mild left periureteral edema. No focal fluid collection. 3. Minimal pelvic free fluid. Electronically Signed: Philip Bright MD ([place]) at 16:47 EDT , Service support ,
[2021-01-05] MEDS: 0.9% Normal Saline 1,000 ML 1000 ML IV (15:34)
[2021-01-05] MEDS: Ondansetron 4 MG/2 ML Vial IV (15:35)
[2021-01-05] MEDS: Morphine 4 MG/ML Syringe IV (15:35)
[2021-01-05 15:39] LABS: Absolute Lymphocyte Count 1.64 X10^3/uL (0.83-4.51); Absolute Neutrophil Count 8.5 X10^3/uL (2.0-7.7); Basophil# 0.04 X10^3/uL; Basophil% 0.4 % (0-1); Eosinophil# 0.23 X10^3/uL; Hematocrit 44.4 % (37-47); Hemoglobin 14.4 g/dL (12.0-15.0); Lymphocyte # 1.64 X10^3/ul (0.83-4.51); Lymphocyte % 14.4 % (19-41); Mean Corp Hgb Conc 32.4 g/dL (32-36); Mean Corpuscular Hgb 26.2 pg (27.0-32.0); Mean Corpuscular Volume 80.9 fL (81-99); Mean Platelet Vol. 8.7 fl (6.2-12.0); Monocyte# 0.94 X10^3/uL; Monocyte% 8.2 % (0-10); NRBC Flagged by Analyzer 0 % (0-5); Neutrophil # 8.52 X10^3/uL (2.7-7.7); Neutrophil % 74.7 % (47-70); Platelet Count 442 K/mm3 (150-450); RBC Distribution Width CV 15.2 % (11.6-14.6); RBC Distribution Width SD 41.4 fl (35.1-43.9); Red Blood Count 5.49 M/mm3 (4.2-5.4); White Blood Count 11.4 K/mm3 (4.4-11.0)
[2021-01-05 16:05] LABS: ALB/GLOB Ratio 0.8 RATIO (0.9-2.4); AST(SGOT) 38 U/L (15-37); Alanine Aminotransfer ALT/SGPT 26 U/L (13-56); Alkaline Phosphatase 55 U/L (45-117); Anion Gap 7 (5-15); BUN 11 mg/dL (7-18); BUN/Creat Ratio 11.7 RATIO (10-20); Calcium,Total 9.4 mg/dL (8.5-10.1); Chloride 97 mmol/L (98-107); Creatinine, Serum 0.94 mg/dL (0.55-1.02); EST Glomerular Filtration Rate 80 mL/min (>60); Est Glom Filt Rate - Afr Amer 97 mL/min (>60); Estimated Creatinine Clearance 99.77 ml/min; Globulin 5.1 g/dL (2.2-4.2); Glucose 89 mg/dL (74-106); Lipase 210 U/L (73-393); Potassium 4.2 mmol/L (3.5-5.1); Protein, Total 9.1 g/dL (6.4-8.2); Sodium Level 132 mmol/L (136-145)
--- NOTE | 2021-01-05 16:06 | EX.ED.DYSGE1 ---
HPI History of Present Illness Chief Complaint: Nausea/Vomiting Narrative Narrative: Patient is a 20-year-old with a complex recent medical history. She was found to have stage Ia invasive endometrial cancer. She underwent hysterectomy which was complicated by uterine injury. The patient was admitted at [facility]. They attempted nephrostomy tube, but were unable to place it. She had a stent that was placed. She had a neuroma and her urinalysis showed an ESBL infection and she was on meropenem. She was discharged 2 days ago after removal of the PICC line on Cipro. Patient reports that she has had nausea, vomiting, and diarrhea for the past week. She reports she is vomiting multiple times and having a loose stool once a day. She denies any blood in her emesis or her stool. No black tarry stools. She reports she has cramping diffuse abdominal pain is 10 out of 10 in severity. States that she was at [facility] for 4 days and they were unable to find a cause for this. PFSH PFS Medical History Cancer Cancer Menorrhagia Home Medications phenazopyridine 200 mg PO TID PRN 12/30/20 [History Last Taken Unknown] tamsulosin 0.4 mg PO DAILY 12/30/20 [History Last Taken Unknown] trospium 20 mg PO DAILY 12/30/20 [History Last Taken Unknown] metoclopramide HCl [Reglan] 10 mg PO Q6H PRN #20 tab 01/05/21 [Rx Last Taken Unknown] ondansetron 4 mg PO Q8H PRN #20 tab 01/05/21 [Rx Last Taken Unknown] Allergy/AdvReac Type Severity Reaction Status Date / Time No Known Allergies Allergy Verified 01/05/21 14:20 Social History Smoking Status: Never smoker ROS ROS ED Constitutional Constitutional ED: Denies chills, fever(s) or sweats Eyes Eyes: Denies change in vision ENT ENT ED: Denies sore throat Cardiovascular Cardiovascular: Denies chest pain Respiratory/Chest Respiratory/Chest: Denies cough, dyspnea or dyspnea on exertion Gastrointestinal Gastrointestinal: Reports abdominal pain, diarrhea, nausea and vomiting; Denies melena Genitourinary Genitourinary ED: Denies dysuria or urinary frequency Musculoskeletal Musculoskeletal: Denies myalgias Integumentary Denies rash Neurologic Neurologic: Denies headache(s), paresthesias or weakness EXAM Physical Exam Const Vital Signs: 01/05/21 14:20 Temperature 97.4 F L Temperature Source Temporal Pulse Rate 116 H Respiratory Rate 16 Blood Pressure 128/90 H Blood Pressure Mean 102 Pulse Ox 98 Oxygen Delivery Method Room Air Positive well nourished and well developed General Appearance ED: well developed HEENT Reports normocephalic and head/scalp atraumatic Eyes PERRL Neck no lymphadenopathy, supple and no JVD General: Negative for tenderness Resp normal respiratory effort and clear to auscultation bilaterally Cardio regular rate, regular rhythm and no murmurs GI non-distended GI Narrative: Moderate diffuse tenderness to palpation. No guarding, rebound, or peritoneal signs. Incisions from the laparoscopy are clean, dry, intact. There is no erythema or induration to suggest infection. Auscultation: normoactive bowel sounds Palpation: soft Back/Spine Back/Spine Narrative: Nontender. Extremity General Extremety ED: Negative for edema or tenderness General Extremity: Negative for edema Neuro oriented x3, CN's II-XII intact bilaterally and no sensory deficits noted Sensorium / Orientation: alert Motor Exam: strength 5/5 throughout Psych mental status grossly normal Skin no rashes or lesions noted MDM MDM MDM Narrative Medical decision making narrative: Patient had an IV placed. She was given morphine and Zofran IV. She is resting more comfortably. Treatment plan: I had a prolonged discussion with patient about her symptoms and symptomatic management of this. She will be changed to Zofran ODT and Reglan that is scheduled. Instructed to follow a brat diet. Follow-up with her primary care physician in 2 days for another exam. Return to the emergency department for any worsening symptoms. Lab Data Labs: Laboratory Results - last 24 hr 01/05/21 01/05/21 01/05/21 15:29 15:29 15:29 WBC 11.4 H RBC 5.49 H Hgb 14.4 Hct 44.4 MCV 80.9 L MCH 26.2 L MCHC 32.4 RDW Std Deviation 41.4 RDW Coeff of Roz 15.2 H Plt Count 442 MPV 8.7 Immature Gran % (Auto) 0.300 Neut % (Auto) 74.7 H Lymph % (Auto) 14.4 L [place] % (Auto) 8.2 Eos % (Auto) 2.0 Baso % (Auto) 0.4 Absolute Neuts (auto) 8.5 H Absolute Lymphs (auto) 1.64 Nucleated RBC % 0 Sodium 132 L Potassium 4.2 Chloride 97 L Carbon Dioxide 28.0 Anion Gap 7 BUN 11 Creatinine 0.94 Estim Creat Clear Calc 99.77 Est GFR (MDRD) Af Amer 97 Est GFR (MDRD) Non-Af 80 BUN/Creatinine Ratio 11.7 Glucose 89 Lactic Acid 1.2 Calcium 9.4 Total Bilirubin 0.50 AST 38 H ALT 26 Alkaline Phosphatase 55 Total Protein 9.1 H Albumin 4.0 Globulin 5.1 H Albumin/Globulin Ratio 0.8 L Lipase 210 Radiography Diagnostic Testing: Radiology Impression Abdomen/Pelvis CT 01/05/21 14:58 IMPRESSION: 1. Interval hysterectomy. 2. Left ureteral stent. Mild left periureteral edema. No focal fluid collection. 3. Minimal pelvic free fluid. Electronically Signed: Philip Bright MD ([place]) at 16:47 EDT , Service support , Discharge Plan Triage Chief Complaint: Nausea/Vomiting ED Provider: Altaf Mchugh Dx/Rx/DC Orders Instructions: ED Vomiting (Adult) Prescriptions: New ondansetron 4 mg tablet,disintegrating 4 mg PO Q8H PRN (Reason: nausea and vomiting) Qty: 20 RF: 0 metoclopramide HCl [Reglan] 10 mg tablet 10 mg PO Q6H PRN (Reason: nausea and vomiting) Qty: 20 RF: 0 No Action tamsulosin 0.4 MG capsule 0.4 mg PO DAILY RF: 0 phenazopyridine 100 MG tablet 200 mg PO TID PRN (Reason: burning with urination) RF: 0 trospium 20 MG tablet 20 mg PO DAILY RF: 0 Primary Care Provider: Care Physician,No Primary Referrals: Althea Partida [NON-STAFF] - 2 Days Care Physician,No Primary [Primary Care Provider] -
[2021-01-05 16:19] LABS: Lactic Acid 1.2 mmol/L (0.4-1.9)
== END 2021-01-05 17:52 | disposition home or self-care (01) ==
LOC: ED 15:39
PROVIDERS: Emergency Provider Emergency Medicine
DX: R11.2 Nausea with vomiting, unspecified (principal); C54.1 Malignant neoplasm of endometrium; Z90.710 Acquired absence of both cervix and uterus; Z79.899 Other long term (current) drug therapy
CPT/HCPCS: 74177; 80053; 83605; 83690; 85025; 96361; 96374; 96375; 99285; J7030; Q9967; A4216; J2405

== ENCOUNTER 2021-01-06 17:38 | Emergency (ER) | payer OTHER, SELFPAY ==
[2021-01-05 14:20] VITALS: BMI 29.9
[2021-01-06 17:38] VITALS: BP 150/96; PULSE 115; PULSE 116; RESP 18; TEMP 36.4; O2SAT 96; O2SAT 98
[2021-01-06] MEDS: Ondansetron 4 MG/2 ML Vial IV (18:30)
[2021-01-06] MEDS: HYDROmorphone 1 MG/ML Syringe 0.5 MG IV (18:30)
[2021-01-06] MEDS: 0.9% Normal Saline 1,000 ML 1000 ML IV (18:30)
[2021-01-06 18:35] VITALS: BP 139/90; PULSE 106; RESP 15; O2SAT 95
[2021-01-06 18:44] LABS: Mucous, Urine 0 SEEN /hpf (<or=2+); Squamous Epithelial Cells - UA 0 SEEN /hpf (5-10)
[2021-01-06 18:46] LABS: Color, Urine Yellow (Yellow); Glucose, Dipstick Normal (Normal); Leukocyte Esterase-Dipstick 100 /ul (Negative); Nitrite-Dipstick Positive (Negative); Occult Blood-Urine 250 /ul (Negative); Protein-Dipstick 100 mg/dl (Negative); Specific Gravity, Urine 1.025 (1.002-1.030); Urine Bilirubin Dipstick Negative (Negative); Urine Clarity Cloudy (Clear); Urine Urobilinogen Normal (Normal)
[2021-01-06 18:46] LABS: Absolute Lymphocyte Count 1.58 X10^3/uL (0.83-4.51); Absolute Neutrophil Count 12.2 X10^3/uL (2.0-7.7); Basophil# 0.05 X10^3/uL; Basophil% 0.3 % (0-1); Eosinophil# 0.22 X10^3/uL; Eosinophils% 1.5 % (0-5); Hematocrit 41.7 % (37-47); Hemoglobin 13.6 g/dL (12.0-15.0); Lymphocyte # 1.58 X10^3/ul (0.83-4.51); Lymphocyte % 10.5 % (19-41); Mean Corp Hgb Conc 32.6 g/dL (32-36); Mean Corpuscular Hgb 26.2 pg (27.0-32.0); Mean Corpuscular Volume 80.2 fL (81-99); Mean Platelet Vol. 8.8 fl (6.2-12.0); Monocyte# 0.93 X10^3/uL; Monocyte% 6.2 % (0-10); NRBC Flagged by Analyzer 0 % (0-5); Neutrophil # 12.16 X10^3/uL (2.7-7.7); Neutrophil % 81.2 % (47-70); Platelet Count 407 K/mm3 (150-450); RBC Distribution Width CV 15.1 % (11.6-14.6); RBC Distribution Width SD 41.1 fl (35.1-43.9)
[2021-01-06 18:52] LABS: Ketone-Dipstick 150 mg/dl (Negative)
[2021-01-06 19:03] LABS: Red Blood Cells-Urine > 100 SEEN /hpf (0-5); White Blood Cells 0-5 SEEN /hpf (0-5)
[2021-01-06 19:04] LABS: Bacteria RARE /hpf (None Seen)
[2021-01-06 19:13] LABS: AST(SGOT) 13 U/L (15-37); Alanine Aminotransfer ALT/SGPT 23 U/L (13-56); Albumin, Serum 4.1 g/dL (3.2-5.0); Alkaline Phosphatase 50 U/L (45-117); Anion Gap 10 (5-15); BUN 12 mg/dL (7-18); BUN/Creat Ratio 12.4 RATIO (10-20); Calcium,Total 9.6 mg/dL (8.5-10.1); Chloride 100 mmol/L (98-107); Creatinine, Serum 0.97 mg/dL (0.55-1.02); EST Glomerular Filtration Rate 77 mL/min (>60); Est Glom Filt Rate - Afr Amer 94 mL/min (>60); Estimated Creatinine Clearance 96.68 ml/min; Globulin 4.3 g/dL (2.2-4.2); Glucose 84 mg/dL (74-106); Potassium 3.5 mmol/L (3.5-5.1); Protein, Total 8.4 g/dL (6.4-8.2); Sodium Level 135 mmol/L (136-145)
--- NOTE | 2021-01-06 19:14 | ED.VIS.GI ---
HPI HPI - GI History of Present Illness Chief Complaint: Nausea/Vomiting Informant: patient Abdominal Pain/Flank Pain Onset: Today Context: Gradual Onset Timing: Continuous Quality: Aching Location: Diffuse Worsened by: Nothing Relieved by: Nothing Nausea/Vomiting/Emesis GI Symptom: Positive for Nausea and Vomiting Quality: Negative for Coffee ground and Hematemesis Diarrhea/Melena/Hematochezia GI Symptom: Positive for Diarrhea; Negative for Melena and Hematochezia Associated Symptoms Associated Symptoms: Positive for - (Urinary retention) Narrative Narrative: Patient presents with urinary retention and lower abdominal pain that is been getting progressively worse throughout the day today. Patient states she has been having some nausea and vomiting. Patient states the pain is aching. Patient states pain is worse over her lower abdomen. Patient states she has only been able to urinate small amounts. Patient admits to some diarrhea but denies any melena or hematochezia. Patient denies any fevers but admits to subjective chills. PFSH PFSH Medical History (Updated 01/06/21 @ 21:[address] Josué Reinoso DO) Cancer Cancer Menorrhagia Home Medications phenazopyridine 200 mg PO TID PRN 12/30/20 [History Last Taken Unknown] tamsulosin 0.4 mg PO DAILY 12/30/20 [History Last Taken Unknown] trospium 20 mg PO DAILY 12/30/20 [History Last Taken Unknown] metoclopramide HCl [Reglan] 10 mg PO Q6H PRN #20 tab 01/05/21 [Rx Last Taken Unknown] ondansetron 4 mg PO Q8H PRN PRN #20 tab 01/05/21 [Rx Last Taken Unknown] Allergy/AdvReac Type Severity Reaction Status Date / Time promethazine [From Phenergan] Allergy Vomiting Verified 01/06/21 17:41 Surgical History (Updated 01/06/21 @ 19:[address] Josué Reinoso DO) History of hysterectomy for cancer Social History Smoking Status: Never smoker ROS ROS ED Constitutional Constitutional ED: Reports chills and subjective; Denies fever(s) ENT ENT ED: Denies rhinorrhea or sore throat Cardiovascular Cardiovascular: Denies chest pain or palpitations Respiratory/Chest Respiratory/Chest: Denies cough or dyspnea Gastrointestinal Gastrointestinal: Reports abdominal pain, diarrhea, nausea and vomiting Genitourinary Genitourinary ED: Reports other Details: Urinary retention Musculoskeletal Musculoskeletal: Denies back pain or neck pain Integumentary Denies abscess or rash Neurologic Neurologic: Denies headache(s) or weakness Allergic/Immunologic Allergic/Immunologic ED: Denies mouth swelling or urticaria EXAM Physical Exam Const Vital Signs: 01/06/21 17:38 01/06/21 18:35 01/06/21 20:00 Temperature 97.6 F L Temperature Source Temporal Pulse Rate 115 H 106 H 101 H Respiratory Rate 18 15 18 Blood Pressure 150/96 H 139/90 H 154/101 H Blood Pressure Mean 114 106 118 Pulse Ox 98 95 99 Oxygen Delivery Method Room Air Room Air Positive well nourished and well developed General Appearance ED: well developed Neck supple and no JVD Resp normal respiratory effort and clear to auscultation bilaterally Cardio regular rhythm Rate: tachycardic GI non-distended Auscultation: normoactive bowel sounds Palpation: soft and tender LLQ, RLQ and suprapubic; Negative for guarding or rebound tenderness present Extremity full ROM General Extremety ED: Yes edema General Extremity: edema Neuro CN's II-XII intact bilaterally and no sensory deficits noted Sensorium / Orientation: alert, oriented to person, oriented to place and oriented to time Motor Exam: strength 5/5 throughout MDM MDM MDM Narrative Medical decision making narrative: Patient was given a dose of Zofran and Dilaudid. Patient was given IV fluids. CBC shows a leukocytosis of 15.0. Comprehensive metabolic profile is within normal limits. Urinalysis shows greater than 100 red blood cells and occult blood of 250 with positive nitrites. Alarcon catheter was placed. Patient felt better after this. Patient does want the Alarcon catheter removed. This was done. Patient was instructed to follow-up with her primary care physician in 5 to 7 days. Patient understood and was agreeable with the plan. All questions were answered. Lab Data Attestation: I reviewed the patient's lab results. Labs: Laboratory Results - last 24 hr 01/06/21 01/06/21 01/06/21 18:25 18:25 18:35 WBC 15.0 H RBC 5.20 Hgb 13.6 Hct 41.7 MCV 80.2 L MCH 26.2 L MCHC 32.6 RDW Std Deviation 41.1 RDW Coeff of Roz 15.1 H Plt Count 407 MPV 8.8 Immature Gran % (Auto) 0.300 Neut % (Auto) 81.2 H Lymph % (Auto) 10.5 L [place] % (Auto) 6.2 Eos % (Auto) 1.5 Baso % (Auto) 0.3 Absolute Neuts (auto) 12.2 H Absolute Lymphs (auto) 1.58 Nucleated RBC % 0 Sodium 135 L Potassium 3.5 Chloride 100 Carbon Dioxide 25.0 Anion Gap 10 BUN 12 Creatinine 0.97 Estim Creat Clear Calc 96.68 Est GFR (MDRD) Af Amer 94 Est GFR (MDRD) Non-Af 77 BUN/Creatinine Ratio 12.4 Glucose 84 Calcium 9.6 Total Bilirubin 0.50 AST 13 L ALT 23 Alkaline Phosphatase 50 Total Protein 8.4 H Albumin 4.1 Globulin 4.3 H Albumin/Globulin Ratio 1.0 Urine Color Yellow Urine Clarity Cloudy Urine pH 5.0 Ur Specific [place] 1.025 Urine Protein 100 H Urine Glucose (UA) Normal Urine Ketones 150 A* Urine Occult Blood 250 H Urine Nitrite Positive H Urine Bilirubin Negative Urine Urobilinogen Normal Ur Leukocyte Esterase 100 H Urine RBC > 100 SEEN Urine WBC 0-5 SEEN Ur Squamous Epith Cells 0 SEEN Urine Bacteria RARE Urine Mucus 0 SEEN Discharge Plan Triage Chief Complaint: Nausea/Vomiting ED Provider: Josué Reinoso Dx/Rx/DC Orders Clinical Impression: Acute urinary retention, Abdominal pain Instructions: ED Urinary Retention, Female Prescriptions: No Action tamsulosin 0.4 MG capsule 0.4 mg PO DAILY RF: 0 phenazopyridine 100 MG tablet 200 mg PO TID PRN (Reason: burning with urination) RF: 0 trospium 20 MG tablet 20 mg PO DAILY RF: 0 metoclopramide HCl [Reglan] 10 mg tablet 10 mg PO Q6H PRN (Reason: nausea and vomiting) Qty: 20 RF: 0 ondansetron 4 mg tablet,disintegrating 4 mg PO Q8H PRN PRN (Reason: Nausea) Qty: 20 RF: 0 Primary Care Provider: Care Physician,No Primary Referrals: Care Physician,No Primary [Primary Care Provider] - 3-5 Days Disposition Disposition: Home, self care
[2021-01-06 20:00] VITALS: BP 154/101; PULSE 101; RESP 18; O2SAT 99
[2021-01-06 21:32] VITALS: BP 132/87; PULSE 72; RESP 14; O2SAT 98
== END 2021-01-06 21:33 | disposition home or self-care (01) ==
PROVIDERS: Emergency Provider Emergency Medicine
DX: R33.9 Retention of urine, unspecified (principal); R11.2 Nausea with vomiting, unspecified; R10.30 Lower abdominal pain, unspecified; R19.7 Diarrhea, unspecified
CPT/HCPCS: 51702; 80053; 81001; 85025; 96361; 96374; 96375; 99284; J7030; J2405

== ENCOUNTER 2021-01-07 18:46 | Emergency (ER) | payer OTHER, SELFPAY ==
[2021-01-07 18:46] VITALS: BP 143/96; PULSE 119; RESP 18; TEMP 37.5; O2SAT 99; BMI 28.6
[2021-01-07 20:21] VITALS: BP 140/100; PULSE 104; RESP 18; O2SAT 99
[2021-01-07 21:00] VITALS: BP 147/106; PULSE 95; RESP 16; TEMP 37.3; O2SAT 100
[2021-01-07 21:16] LABS: Absolute Lymphocyte Count 1.33 X10^3/uL (0.83-4.51); Absolute Neutrophil Count 6.8 X10^3/uL (2.0-7.7); Basophil# 0.03 X10^3/uL; Basophil% 0.3 % (0-1); Eosinophils% 2.2 % (0-5); Hematocrit 40.2 % (37-47); Hemoglobin 12.8 g/dL (12.0-15.0); Lymphocyte # 1.33 X10^3/ul (0.83-4.51); Lymphocyte % 14.9 % (19-41); Mean Corp Hgb Conc 31.8 g/dL (32-36); Mean Corpuscular Hgb 26.3 pg (27.0-32.0); Mean Corpuscular Volume 82.5 fL (81-99); Mean Platelet Vol. 9.2 fl (6.2-12.0); Monocyte% 5.6 % (0-10); NRBC Flagged by Analyzer 0 % (0-5); Neutrophil # 6.83 X10^3/uL (2.7-7.7); Neutrophil % 76.8 % (47-70); Platelet Count 359 K/mm3 (150-450); RBC Distribution Width CV 15.1 % (11.6-14.6); RBC Distribution Width SD 42.7 fl (35.1-43.9); Red Blood Count 4.87 M/mm3 (4.2-5.4); White Blood Count 8.9 K/mm3 (4.4-11.0)
[2021-01-07 21:16] LABS: Bacteria 0 SEEN /hpf (None Seen); Squamous Epithelial Cells - UA 0 SEEN /hpf (5-10)
[2021-01-07 21:26] LABS: Color, Urine Yellow (Yellow); Glucose, Dipstick Normal (Normal); Ketone-Dipstick 5 mg/dl (Negative); Leukocyte Esterase-Dipstick 500 /ul (Negative); Nitrite-Dipstick Negative (Negative); Occult Blood-Urine 150 /ul (Negative); Protein-Dipstick 30 mg/dl (Negative); Urine Bilirubin Dipstick Negative (Negative); Urine Clarity Clear (Clear); Urine Urobilinogen Normal (Normal)
[2021-01-07 21:31] LABS: Red Blood Cells-Urine 5-10 SEEN /hpf (0-5); White Blood Cells 5-10 SEEN /hpf (0-5)
[2021-01-07 21:32] LABS: Mucous, Urine 1+ /hpf (<or=2+)
[2021-01-07] MEDS: Ondansetron 4 MG/2 ML Vial IV ×2 (21:39→23:27)
[2021-01-07] MEDS: HYDROmorphone 1 MG/ML Syringe IV (21:41)
[2021-01-07 21:45] LABS: Anion Gap 8 (5-15); BUN 9 mg/dL (7-18); BUN/Creat Ratio 11.8 RATIO (10-20); Calcium,Total 8.9 mg/dL (8.5-10.1); Chloride 102 mmol/L (98-107); Creatinine, Serum 0.76 mg/dL (0.55-1.02); EST Glomerular Filtration Rate 102 mL/min (>60); Est Glom Filt Rate - Afr Amer 123 mL/min (>60); Glucose 99 mg/dL (74-106); Potassium 4.1 mmol/L (3.5-5.1); Sodium Level 138 mmol/L (136-145)
[2021-01-07 22:00] VITALS: BP 137/92; PULSE 88; RESP 14; TEMP 37.4; O2SAT 95
--- NOTE | 2021-01-07 22:01 | ED.RN ---
contact [facility] for transfer, currently there hospital is full and er is full, dr. dunham spoke to there transfer center at this time
--- NOTE | 2021-01-07 22:43 | EX.ED.DYSGE1 ---
HPI History of Present Illness Chief Complaint: Complaint Informant: patient Narrative Narrative: 20-year-old female presents with urinary retention. Patient had partial hysterectomy on December 18 at [facility]. She states that she had a ureteral injury during the surgery. She had a stent placed in her ureter following that. She was seen in the ED last night for urinary retention. At that time she had a Alarcon catheter placed and felt improved. She had the Alarcon catheter removed at her request. This morning she still was unable to urinate. She has been unable to urinate throughout the day. She called her surgeon and was advised to come to the ED for evaluation. Prior similar symptoms: Yes Recent Illness/Hospitalization: Yes [facility] Medical History (Updated 01/07/21 @ 22:[address] Jagruti Castro MD) Cancer Cancer Menorrhagia Home Medications phenazopyridine 200 mg PO TID PRN 12/30/20 [History Last Taken Unknown] tamsulosin 0.4 mg PO DAILY 12/30/20 [History Last Taken Unknown] trospium 20 mg PO DAILY 12/30/20 [History Last Taken Unknown] metoclopramide HCl [Reglan] 10 mg PO Q6H PRN #20 tab 01/05/21 [Rx Last Taken Unknown] ondansetron 4 mg PO Q8H PRN PRN #20 tab 01/05/21 [Rx Last Taken Unknown] hydrocodone-acetaminophen 1 tab PO Q6H PRN PRN 3 Days #10 tablet 01/07/21 [Rx Last Taken Unknown] Allergy/AdvReac Type Severity Reaction Status Date / Time promethazine [From Phenergan] Allergy Vomiting Verified 01/06/21 17:41 morphine AdvReac Chest Verified 01/07/21 18:49 tightness Surgical History History of hysterectomy for cancer Social History Smoking Status: Never smoker ROS ROS ED Constitutional Constitutional ED: Denies fever(s) Eyes Eyes: Denies change in vision ENT ENT ED: Denies rhinorrhea or sore throat Cardiovascular Cardiovascular: Denies chest pain or palpitations Respiratory/Chest Respiratory/Chest: Denies cough or dyspnea Gastrointestinal Gastrointestinal: Reports abdominal pain, nausea and vomiting; Denies diarrhea Genitourinary Genitourinary ED: Reports other Details: Urinary retention ; Denies dysuria Musculoskeletal Musculoskeletal: Denies myalgias Integumentary Denies rash Neurologic Neurologic: Denies headache(s) Psychiatric Psychiatric: Denies suicidal thoughts EXAM Physical Exam Const Vital Signs: 01/07/21 18:46 01/07/21 20:21 01/07/21 21:00 Temperature 99.5 F H 99.2 F H Temperature Source Oral Oral Pulse Rate 119 H 104 H 95 Respiratory Rate 18 18 16 Blood Pressure 143/96 H 140/100 H 147/106 H Blood Pressure Mean 111 113 119 Pulse Ox 99 99 100 Oxygen Delivery Method Room Air Room Air Room Air 01/07/21 22:00 Temperature 99.4 F H Temperature Source Oral Pulse Rate 88 Respiratory Rate 14 Blood Pressure 137/92 H Blood Pressure Mean 107 Pulse Ox 95 Oxygen Delivery Method Room Air Positive well nourished and well developed General Appearance ED: well developed HEENT Reports normocephalic and head/scalp atraumatic Eyes PERRL and EOMs intact bilaterally Neck supple General: Negative for tenderness Chest Wall inspection of chest normal Resp normal respiratory effort and clear to auscultation bilaterally Cardio regular rate and regular rhythm GI non-distended GI Narrative: Suprapubic tenderness with no guarding or rebound Palpation: soft; Negative for guarding or rebound tenderness present no CVA tenderness Extremity normal to inspection Neuro oriented x3 Sensorium / Orientation: alert Psych mental status grossly normal MDM MDM MDM Narrative Medical decision making narrative: Patient was given Dilaudid, Zofran IV with improvement. Alarcon catheter was placed and she felt improved. Discussed with [facility] for possible transfer. Transfer line discussed with her surgeon Dr. Escobedo and he will see her in the office tomorrow. They do not feel transfer is necessary at this time. She will be sent home with a Alarcon leg bag. Patient is agreeable with this plan and will follow up with her [employer] tomorrow. She is currently on Cipro and will continue this. She has nausea medication at home. Lab Data Attestation: I reviewed the patient's lab results. Labs: Laboratory Results - last 24 hr 01/07/21 01/07/21 01/07/21 20:58 20:58 21:00 WBC 8.9 RBC 4.87 Hgb 12.8 Hct 40.2 MCV 82.5 MCH 26.3 L MCHC 31.8 L RDW Std Deviation 42.7 RDW Coeff of Roz 15.1 H Plt Count 359 MPV 9.2 Immature Gran % (Auto) 0.200 Neut % (Auto) 76.8 H Lymph % (Auto) 14.9 L [place] % (Auto) 5.6 Eos % (Auto) 2.2 Baso % (Auto) 0.3 Absolute Neuts (auto) 6.8 Absolute Lymphs (auto) 1.33 Nucleated RBC % 0 Sodium 138 Potassium 4.1 Chloride 102 Carbon Dioxide 28.0 Anion Gap 8 BUN 9 Creatinine 0.76 Estim Creat Clear Calc 123.40 Est GFR (MDRD) Af Amer 123 Est GFR (MDRD) Non-Af 102 BUN/Creatinine Ratio 11.8 Glucose 99 Calcium 8.9 Urine Color Yellow Urine Clarity Clear Urine pH 6.0 Ur Specific [place] 1.020 Urine Protein 30 H Urine Glucose (UA) Normal Urine Ketones 5 H Urine Occult Blood 150 H Urine Nitrite Negative Urine Bilirubin Negative Urine Urobilinogen Normal Ur Leukocyte Esterase 500 H Urine RBC 5-10 SEEN Urine WBC 5-10 SEEN Ur Squamous Epith Cells 0 SEEN Urine Bacteria 0 SEEN Urine Mucus 1+ Discharge Plan Triage Chief Complaint: Complaint ED Provider: Jagruti Castro Dx/Rx/DC Orders Clinical Impression: Acute urinary retention Instructions: ED Urinary Retention, Female Prescriptions: New hydrocodone-acetaminophen [hydrocodone-acetaminophen] 1 TABLET tablet 1 tab PO Q6H PRN PRN (Reason: Pain) 3 Days Qty: 10 RF: 0 No Action tamsulosin 0.4 MG capsule 0.4 mg PO DAILY RF: 0 phenazopyridine 100 MG tablet 200 mg PO TID PRN (Reason: burning with urination) RF: 0 trospium 20 MG tablet 20 mg PO DAILY RF: 0 metoclopramide HCl [Reglan] 10 mg tablet 10 mg PO Q6H PRN (Reason: nausea and vomiting) Qty: 20 RF: 0 ondansetron 4 mg tablet,disintegrating 4 mg PO Q8H PRN PRN (Reason: Nausea) Qty: 20 RF: 0 Primary Care Provider: Care Physician,No Primary Referrals: Madan Escobedo MD [NON-STAFF] - Care Physician,No Primary [Primary Care Provider] - Disposition Disposition: Home, self care
[2021-01-07 23:11] VITALS: BP 136/89; PULSE 94; RESP 14; O2SAT 98
[2021-01-07] MEDS: HYDROmorphone 0.5 MG/0.5 ML SYRINGE IV (23:29)
== END 2021-01-07 23:55 | disposition home or self-care (01) ==
PROVIDERS: Emergency Provider Emergency Medicine
DX: R33.9 Retention of urine, unspecified (principal); R11.2 Nausea with vomiting, unspecified; R10.9 Unspecified abdominal pain; Z90.711 Acquired absence of uterus with remaining cervical stump
CPT/HCPCS: 51702; 80048; 81001; 85025; 96374; 96375; 96376; 99284; A4216; J2405

== ENCOUNTER 2021-01-08 20:09 | Observation (INO) | payer OTHER, SELFPAY ==
[2021-01-07 18:46] VITALS: BMI 28.6
[2021-01-08 20:10] VITALS: BP 150/98; PULSE 110; RESP 16; TEMP 36.6; O2SAT 100; BMI 29.0
--- NOTE | 2021-01-08 20:34 | ED.VIS.GI ---
HPI <Dr. Jerrell Lozada MD - Last Filed: 01/08/21 22:54> HPI - GI History of Present Illness Chief Complaint: Nausea/Vomiting Informant: patient and parent Abdominal Pain/Flank Pain Onset: Weeks Timing: Intermittent Location: Diffuse Current Severity: Mild Maximum Severity: Mild Nausea/Vomiting/Emesis GI Symptom: Positive for Nausea and Vomiting Onset: Weeks Quality: Positive for Nonbilious; Negative for Blood streaks Severity: Mild Diarrhea/Melena/Hematochezia GI Symptom: Negative for Diarrhea Associated Symptoms Associated Symptoms: Negative for Dysuria Narrative Narrative: 20-year-old female status post robotic hysterectomy December 18 at [facility]. Done due to cervical cancer. Patient did have a operative complication involving her urethra which required stenting. She developed postop urinary retention and required a Alarcon catheter. That was removed today. According to her and her mom she is had intermittent nausea and vomiting over the last week with diffuse discomfort. She states she is able to urinate today and denies any dysuria today. She denies any fever. Prior similar symptoms: Yes Recent Illness/Hospitalization: Yes PFSH <Dr. Jerrell Lozada MD - Last Filed: 01/08/21 22:54> PFS Medical History Cancer Cancer Menorrhagia Home Medications tamsulosin 0.4 mg PO DAILY 12/30/20 [History Last Taken Unknown] metoclopramide HCl [Reglan] 10 mg PO Q6H PRN #20 tab 01/05/21 [Rx Last Taken Unknown] ondansetron 4 mg PO Q8H PRN PRN #20 tab 01/05/21 [Rx Last Taken Unknown] hydrocodone-acetaminophen 1 tab PO Q6H PRN PRN 3 Days #10 tablet 01/07/21 [Rx Last Taken Unknown] Allergy/AdvReac Type Severity Reaction Status Date / Time promethazine [From Phenergan] Allergy Vomiting Verified 01/08/21 20:10 morphine AdvReac Chest Verified 01/08/21 20:10 tightness Surgical History History of hysterectomy for cancer Social History Smoking Status: Never smoker ROS <Dr. Jerrell Lozada MD - Last Filed: 01/08/21 22:54> ROS ED Review of Systems ROS Unobtainable: Denies due to encephalopathy Constitutional Constitutional ED: Denies fever(s) ENT ENT ED: Denies sore throat Cardiovascular Cardiovascular: Denies chest pain Respiratory/Chest Respiratory/Chest: Denies dyspnea Gastrointestinal Gastrointestinal: Reports abdominal pain, nausea and vomiting Genitourinary Genitourinary ED: Denies dysuria or hematuria Musculoskeletal Musculoskeletal: Denies myalgias Integumentary Denies rash Neurologic Neurologic: Denies headache(s) Psychiatric Psychiatric: Denies depression Endocrine Endocrinology: Denies polyuria Hematologic/Lymphatic Hematologic/Lymphatic: Denies easy bruising Allergic/Immunologic Allergic/Immunologic ED: Denies urticaria EXAM <Dr. Jerrell Lozada MD - Last Filed: 01/08/21 22:54> Physical Exam Narrative Exam Narrative: Young female with an emesis bag held up to her mouth. Vital signs are stable afebrile. Mom present at bedside. HEENT exam unremarkable. Neck nontender. Lungs clear to auscultation bilaterally. Heart regular rhythm rate about 110 no murmur. Abdomen is soft. Nondistended normal bowel sounds no peritoneal signs. No signs of obstruction. Patient moving all 4 extremities. Calves are nontender without edema. Neurologically she is awake and alert. Const Vital Signs: 01/08/21 20:10 01/08/21 22:25 01/09/21 00:56 Temperature 97.9 F Temperature Source Temporal Pulse Rate 110 H 98 88 Respiratory Rate 16 16 12 Blood Pressure 150/98 H 144/94 H 123/90 H Blood Pressure Mean 115 110 101 Pulse Ox 100 98 100 Oxygen Delivery Method Room Air Room Air Room Air HEENT Reports moist mucous membranes normocephalic and atraumatic Eyes PERRL and EOMs intact bilaterally Neck no lymphadenopathy, supple and No no JVD Resp normal respiratory effort and clear to auscultation bilaterally Cardio regular rhythm and no murmurs Rate: tachycardic GI non-tender and non-distended Auscultation: normoactive bowel sounds Palpation: soft Back/Spine no CVA tenderness Extremity full ROM General Extremety ED: Negative for edema or tenderness General Extremity: Negative for edema Neuro moves all extremities Sensorium / Orientation: alert, oriented to person, oriented to place and oriented to time Motor Exam: strength 5/5 throughout Psych mental status grossly normal Skin Rashes: no rashes <Dr. Amado Turner MD - Last Filed: 01/09/21 01:14> Physical Exam Const Vital Signs: 01/08/21 20:10 01/08/21 22:25 01/09/21 00:56 Temperature 97.9 F Temperature Source Temporal Pulse Rate 110 H 98 88 Respiratory Rate 16 16 12 Blood Pressure 150/98 H 144/94 H 123/90 H Blood Pressure Mean 115 110 101 Pulse Ox 100 98 100 Oxygen Delivery Method Room Air Room Air Room Air MDM <Dr. Jerrell Lozada MD - Last Filed: 01/08/21 22:54> MDM MDM Narrative Medical decision making narrative: Female status post hysterectomy in December. Presents with nausea and vomiting. She be treated with IV fluids, pain medication and Zofran. Screening labs are being obtained. Lab Data Attestation: I reviewed the patient's lab results. Labs: Laboratory Results - last 24 hr 01/08/21 01/08/21 20:45 20:45 WBC 8.5 RBC 4.80 Hgb 12.6 Hct 39.7 MCV 82.7 MCH 26.3 L MCHC 31.7 L RDW Std Deviation 43.2 RDW Coeff of Roz 15.0 H Plt Count 336 MPV 9.2 Immature Gran % (Auto) 0.400 Neut % (Auto) 72.7 H Lymph % (Auto) 17.5 L [place] % (Auto) 6.1 Eos % (Auto) 2.9 Baso % (Auto) 0.4 Absolute Neuts (auto) 6.2 Absolute Lymphs (auto) 1.49 Nucleated RBC % 0 Sodium 140 Potassium 3.0 L Chloride 104 Carbon Dioxide 31.0 Anion Gap 5 BUN 7 Creatinine 0.93 Estim Creat Clear Calc 100.84 Est GFR (MDRD) Af Amer 98 Est GFR (MDRD) Non-Af 81 BUN/Creatinine Ratio 7.6 L Glucose 104 Calcium 9.2 CBC and chemistry panel was normal. Repeat exam at 10:30 PM unchanged. Patient received a second dose of nausea medication will be given IV Toradol now for pain. CT abdomen pelvis is being ordered. That will be checked out to the overnight physician. Radiography Diagnostic Testing: Radiology Impression Abdomen/Pelvis CT 01/08/21 22:33 IMPRESSION: Left ureteral stent in good position. There is minimal free fluid in the pelvis. Individualized dose optimization techniques were used for this CT. at 2332 Reported and signed by: Trenton Shelley MD Electronically Signed: Trenton Shelley MD at 23:31 EDT Tel , Service support , <Dr. Amado Turner MD - Last Filed: 01/09/21 01:14> [facility] MDM Narrative Medical decision making narrative: I have reached out to [facility]. Unfortunately, they have 83 patients in the emergency department, her bed blocked, and have no available beds. As the patient does not have evidence of an acute surgical emergency, I do feel that she can be symptomatically treated here in our hospital. The hospitalist is agreeable with plan for observation. Impression 1. Nausea and vomiting Lab Data Labs: Laboratory Results - last 24 hr 01/08/21 01/08/21 20:45 20:45 WBC 8.5 RBC 4.80 Hgb 12.6 Hct 39.7 MCV 82.7 MCH 26.3 L MCHC 31.7 L RDW Std Deviation 43.2 RDW Coeff of Roz 15.0 H Plt Count 336 MPV 9.2 Immature Gran % (Auto) 0.400 Neut % (Auto) 72.7 H Lymph % (Auto) 17.5 L [place] % (Auto) 6.1 Eos % (Auto) 2.9 Baso % (Auto) 0.4 Absolute Neuts (auto) 6.2 Absolute Lymphs (auto) 1.49 Nucleated RBC % 0 Sodium 140 Potassium 3.0 L Chloride 104 Carbon Dioxide 31.0 Anion Gap 5 BUN 7 Creatinine 0.93 Estim Creat Clear Calc 100.84 Est GFR (MDRD) Af Amer 98 Est GFR (MDRD) Non-Af 81 BUN/Creatinine Ratio 7.6 L Glucose 104 Calcium 9.2 Radiography Diagnostic Testing: Radiology Impression Abdomen/Pelvis CT 01/08/21 22:33 IMPRESSION: Left ureteral stent in good position. There is minimal free fluid in the pelvis. Individualized dose optimization techniques were used for this CT. at 2332 Reported and signed by: Trenton Shelley MD Electronically Signed: Trenton Shelley MD at 23:31 EDT Tel , Service support , Discharge Plan Triage Chief Complaint: Nausea/Vomiting ED Provider: Amado Turner Dx/Rx/DC Orders Prescriptions: No Action tamsulosin 0.4 MG capsule 0.4 mg PO DAILY RF: 0 metoclopramide HCl [Reglan] 10 mg tablet 10 mg PO Q6H PRN (Reason: nausea and vomiting) Qty: 20 RF: 0 ondansetron 4 mg tablet,disintegrating 4 mg PO Q8H PRN PRN (Reason: Nausea) Qty: 20 RF: 0 hydrocodone-acetaminophen [hydrocodone-acetaminophen] 1 TABLET tablet 1 tab PO Q6H PRN PRN (Reason: Pain) 3 Days Qty: 10 RF: 0 Primary Care Provider: Care Physician,No Primary
[2021-01-08] MEDS: 0.9% Normal Saline 1,000 ML 1000 ML IV (20:53)
[2021-01-08] MEDS: Ondansetron 4 MG/2 ML Vial IV ×2 (20:53→22:25)
[2021-01-08 20:56] LABS: Absolute Lymphocyte Count 1.49 X10^3/uL (0.83-4.51); Absolute Neutrophil Count 6.2 X10^3/uL (2.0-7.7); Basophil# 0.03 X10^3/uL; Basophil% 0.4 % (0-1); Eosinophil# 0.25 X10^3/uL; Eosinophils% 2.9 % (0-5); Hematocrit 39.7 % (37-47); Hemoglobin 12.6 g/dL (12.0-15.0); Lymphocyte # 1.49 X10^3/ul (0.83-4.51); Lymphocyte % 17.5 % (19-41); Mean Corp Hgb Conc 31.7 g/dL (32-36); Mean Corpuscular Hgb 26.3 pg (27.0-32.0); Mean Corpuscular Volume 82.7 fL (81-99); Mean Platelet Vol. 9.2 fl (6.2-12.0); Monocyte# 0.52 X10^3/uL; Monocyte% 6.1 % (0-10); NRBC Flagged by Analyzer 0 % (0-5); Neutrophil # 6.18 X10^3/uL (2.7-7.7); Neutrophil % 72.7 % (47-70); Platelet Count 336 K/mm3 (150-450); RBC Distribution Width SD 43.2 fl (35.1-43.9); White Blood Count 8.5 K/mm3 (4.4-11.0)
[2021-01-08] MEDS: HYDROmorphone 1 MG/ML Syringe IV (21:05)
[2021-01-08 21:17] LABS: Anion Gap 5 (5-15); BUN 7 mg/dL (7-18); BUN/Creat Ratio 7.6 RATIO (10-20); Calcium,Total 9.2 mg/dL (8.5-10.1); Chloride 104 mmol/L (98-107); Creatinine, Serum 0.93 mg/dL (0.55-1.02); EST Glomerular Filtration Rate 81 mL/min (>60); Est Glom Filt Rate - Afr Amer 98 mL/min (>60); Estimated Creatinine Clearance 100.84 ml/min; Glucose 104 mg/dL (74-106); Sodium Level 140 mmol/L (136-145)
[2021-01-08 22:25] VITALS: BP 144/94; PULSE 98; RESP 16; O2SAT 98
--- NOTE | 2021-01-08 22:33 | CT_ITS ---
EXAM: CT ABDOMEN AND PELVIS WITH INTRAVENOUS CONTRAST : 2000 CLINICAL INDICATION: abd pain,nausea and vomiting,pt post-op hysterectomy with lt ureter injury on 12-18-20- done for cervical cancer TECHNIQUE: Helically acquired images were obtained of the abdomen and pelvis with intravenous contrast. This CT exam was performed using one or more of the following dose reduction techniques: automated exposure control, adjustment of the mA and/or kV according to patient size, and/or use of iterative reconstruction technique. This report was created using [employer] report generation technology. CONTRAST: IV 100mL Isovue-370 COMPARISON: None. FINDINGS: LOWER THORAX: Unremarkable. Lung bases are clear. No cardiomegaly. No significant pericardial effusion. ABDOMEN: LIVER: Unremarkable. Homogeneous. No focal mass. GALLBLADDER AND BILE DUCTS: Unremarkable. No calcified gallstones. No gallbladder distention or wall edema. No intra- or extrahepatic biliary ductal dilation. PANCREAS: Unremarkable. No focal cystic or solid mass. SPLEEN: Unremarkable. Normal size without focal cystic or solid mass. ADRENALS: Unremarkable. No nodules. KIDNEYS AND URETERS: Delayed images show normal excretion of contrast from both kidneys. Normal renal size and position. No hydronephrosis. STOMACH AND BOWEL: Unremarkable. No stomach or bowel distention. No focal inflammatory change. PELVIS: APPENDIX: No evidence of acute appendicitis. BLADDER: Unremarkable. REPRODUCTIVE: Unremarkable as visualized. No mass. ABDOMEN and PELVIS: INTRAPERITONEAL SPACE: There is a mild amount of free fluid in the pelvis. No free air. BONES/JOINTS: Unremarkable. No suspicious lytic or blastic abnormality. SOFT TISSUES: Unremarkable. No discrete abdominal or pelvic wall hernia. VASCULATURE: Unremarkable. Abdominal aorta is non-dilated. LYMPH NODES: Unremarkable. No enlarged lymph nodes. TUBES, LINES AND DEVICES: Left ureteral stent is in place. CT/Abdomen/Pelvis W IV Cont ONLY IMPRESSION: Left ureteral stent in good position. There is minimal free fluid in the pelvis. Individualized dose optimization techniques were used for this CT. at 2332 Reported and signed by: Trenton Shelley MD Electronically Signed: Trenton Shelley MD at 23:31 EDT Tel , Service support ,
[2021-01-08] MEDS: Ketorolac 30 MG/ML Syringe IV (22:39)
[2021-01-08] MEDS: HYDROmorphone 0.5 MG/0.5 ML SYRINGE IV (23:48)
[2021-01-08] MEDS: Potassium Chloride 10mEq/100mL 10 MEQ/100 ML IV.SOLN. 100 MEQ IV BOLUS (23:52)
[2021-01-09] VITALS (10 sets, daily range): BP systolic 123–144; BP diastolic 74–103; PULSE 84–108; RESP 12–18; TEMP 36.7–37.4; O2SAT 96–100; BMI 29.3
--- NOTE | 2021-01-09 00:48 | ED.RN ---
PER REQUEST OF DR PLEITEZ, CALLED [facility] TO CHECK THE STATUS OF THE REQUEST FOR TRANSFER, PER JUAN AT [facility], HE HAS NOT TRIED TO CONTACT THEIR DR I AM THE ONLY ONE WORKING [facility], AND I WILL GET TO YOUR PT WHEN I GET TO YOUR PT.
[2021-01-09] MEDS: Potassium Chloride 10mEq/100mL 10 MEQ/100 ML IV.SOLN. 100 MEQ IV BOLUS (00:57)
--- NOTE | 2021-01-09 01:15 | PCM.HP.STD ---
Documented by User: JONY Bronson 01/09/21 01:28 HPI - General HPI Narrative ADDIS TORRES, is a 20 F who presents with intractable nausea and vomiting. Patient is a status post robotic hysterectomy on December 18 at [facility]. Patient reports that she had a D&C performed here at which time it was found that patient had endometrial cancer and she was referred for a hysterectomy. Patient reports that she still has both ovaries and fallopian tubes. Patient had developed postop urinary retention which required a Alarcon catheter which was removed earlier today and over the last week she has had intermittent nausea and vomiting with abdominal pain. Patient denies fever, chills, dysuria, hematuria, melena, diarrhea, constipation. [facility] Medical History Endometrial cancer Menorrhagia Home Medications tamsulosin 0.4 mg PO DAILY 12/30/20 [History Last Taken Unknown] metoclopramide HCl [Reglan] 10 mg PO Q6H PRN #20 tab 01/05/21 [Rx Last Taken Unknown] ondansetron 4 mg PO Q8H PRN PRN #20 tab 01/05/21 [Rx Last Taken Unknown] hydrocodone-acetaminophen 1 tab PO Q6H PRN PRN 3 Days #10 tablet 01/07/21 [Rx Last Taken Unknown] Allergy/AdvReac Type Severity Reaction Status Date / Time promethazine [From Phenergan] Allergy Vomiting Verified 01/08/21 20:10 morphine AdvReac Chest Verified 01/08/21 20:10 tightness Surgical History History of hysterectomy for cancer Social History Smoking Status: Never smoker ROS Constitutional Constitutional: Denies anorexia, chills or fatigue Cardiovascular Cardiovascular: Denies chest pain, edema or palpitations Respiratory/Chest Respiratory/Chest: Denies cough or hemoptysis Gastrointestinal Gastrointestinal: Reports abdominal pain, nausea and vomiting; Denies constipation or diarrhea Genitourinary Genitourinary: Denies dysuria or hematuria Musculoskeletal Musculoskeletal: Denies back pain, extremity pain or joint pain Integumentary Integumentary: Denies dry skin Neurologic Neurologic: Denies abnormal gait or abnormal speech Psychiatric Psychiatric: Denies anxiety or depression Endocrine Endocrinology: Denies change in body appearance Hematologic/Lymphatic Hematologic/Lymphatic: Denies anemia, easy bleeding or easy bruising Vital Signs Vital Signs Vital Signs: 01/08/21 20:10 01/08/21 22:25 01/09/21 00:56 Temperature 97.9 F Temperature Source Temporal Pulse Rate 110 H 98 88 Respiratory Rate 16 16 12 Blood Pressure 150/98 H 144/94 H 123/90 H Blood Pressure Mean 115 110 101 Pulse Ox 100 98 100 Oxygen Delivery Method Room Air Room Air Room Air Physical Exam Const alert and oriented x3 General Appearance: cooperative HEENT normocephalic and head/scalp atraumatic Eyes PERRL and EOMs intact bilaterally Neck supple, no JVD and thyroid normal General: trachea midline Lymph Lymphatic: no lymphadenopathy noted Resp normal respiratory effort, normal air movement and clear to auscultation bilaterally Cardio regular rate, regular rhythm, S1 normal heart sound and S2 normal heart sound GI Auscultation: hypoactive bowel sounds Palpation: tender Extremity normal capillary refill and no clubbing, cyanosis or edema General Extremity: no tenderness to palpation of joints or extremities Skin General Skin Exam: no breakdown and turgor normal Lesions: no lesions Rashes: no rashes Neuro CN's II-XII intact bilaterally Psych thought process normal, cooperative and affect normal Appearance: appropriate Lab / Micro Data Result Diagrams: 01/08/21 20:45 01/08/21 20:45 Labs: Laboratory Results - last 24 hr 01/08/21 01/08/21 20:45 20:45 WBC 8.5 RBC 4.80 Hgb 12.6 Hct 39.7 MCV 82.7 MCH 26.3 L MCHC 31.7 L RDW Std Deviation 43.2 RDW Coeff of Roz 15.0 H Plt Count 336 MPV 9.2 Immature Gran % (Auto) 0.400 Neut % (Auto) 72.7 H Lymph % (Auto) 17.5 L [place] % (Auto) 6.1 Eos % (Auto) 2.9 Baso % (Auto) 0.4 Absolute Neuts (auto) 6.2 Absolute Lymphs (auto) 1.49 Nucleated RBC % 0 Sodium 140 Potassium 3.0 L Chloride 104 Carbon Dioxide 31.0 Anion Gap 5 BUN 7 Creatinine 0.93 Estim Creat Clear Calc 100.84 Est GFR (MDRD) Af Amer 98 Est GFR (MDRD) Non-Af 81 BUN/Creatinine Ratio 7.6 L Glucose 104 Calcium 9.2 Radiology Impression Abdomen/Pelvis CT 01/08/21 22:33 IMPRESSION: Left ureteral stent in good position. There is minimal free fluid in the pelvis. Individualized dose optimization techniques were used for this CT. at 2332 Reported and signed by: Trenton Shelley MD Electronically Signed: Trenton Shelley MD at 23:31 EDT Tel , Service support , Assessment & Plan Assessment/Plan (1) Nausea and vomiting: Status: Acute Code(s): R11.2 - Nausea with vomiting, unspecified (2) Hypokalemia: Status: Acute Code(s): E87.6 - Hypokalemia Plan: -Admit to [facility] for observation -Clear liquid diet advance as tolerated -Intake and output -Vital signs per protocol -CBC and CMP in a.m. -Magnesium level stat -LR 150ml/hr -Continue Kneeland for pain control -Continue tamsulosin due to previous urinary retention -Potassium chloride p.o. 40 mEq x 1, patient received 20 mEq IV in ER -As needed IV Zofran ordered DVT prophylaxis-not indicated, observation status This patient was seen by JONY Bronson under the supervision of Dr. Sanabria. Documented by User: Dr. Tye Sanabria MD 01/09/21 01:34 HPI - General General Date of Admission: 01/09/21 [facility] Medical History Endometrial cancer Menorrhagia Home Medications tamsulosin 0.4 mg PO DAILY 12/30/20 [History Last Taken Unknown] metoclopramide HCl [Reglan] 10 mg PO Q6H PRN #20 tab 01/05/21 [Rx Last Taken Unknown] ondansetron 4 mg PO Q8H PRN PRN #20 tab 01/05/21 [Rx Last Taken Unknown] hydrocodone-acetaminophen 1 tab PO Q6H PRN PRN 3 Days #10 tablet 01/07/21 [Rx Last Taken Unknown] Allergy/AdvReac Type Severity Reaction Status Date / Time promethazine [From Phenergan] Allergy Vomiting Verified 01/08/21 20:10 morphine AdvReac Chest Verified 01/08/21 20:10 tightness Surgical History History of hysterectomy for cancer Social History Smoking Status: Never smoker Lab / Micro Data Result Diagrams: 01/08/21 20:45 01/08/21 20:45 Addendum Addendum: Patient is a 20-year-old female who had a D&C for endometrial cancer and subsequently having hysterectomy on December 18 and left ureteral stent placement about 2 days after secondary complication from hysterectomy presenting with progressively worsening nausea and vomiting for about 10 days. Patient reports that after the procedure she was kept in the hospital a few days because she was having nausea and vomiting too. She reported that her vomitus is undigested food. She denies constipation or diarrhea. Her recent procedure described above was done at [facility]. Emergency Department Doctor discussed the case with [facility] who recommended that patient be observed at our hospital because of unavailability of beds. Per emergency department doctor, [facility] will check on patient on 01/09/2021 and if patient still has symptoms [facility] may admit. Alert and oriented x3 Nontraumatic; normocephalic Lung clear to auscultate Heart sounds S1-S2. No murmur, gallop or rubs. Abdomen bowel sounds present soft, nontender nondistended Extremity without edema cyanosis or clubbing. Nausea and vomiting Etiology unclear at this time. Supportive treatment with lactated Ringer's; IV Zofran; and clear liquid diet. Because of hypokalemia of 3.0 patient received IV potassium at this at emergency department. Trend BMP.
[2021-01-09 01:26] LABS: Magnesium 2.1 mg/dL (1.6-2.6)
[2021-01-09] MEDS: Lactated Ringers 1,000 ML 150 ML IV ×4 (02:42→20:34)
[2021-01-09] MEDS: Ondansetron 4 MG/2 ML Vial IV ×2 (02:45→10:04)
[2021-01-09] MEDS: Potassium Chloride Oral Tablet 20 MEQ 40 MEQ PO (05:18)
[2021-01-09 05:35] LABS: Absolute Lymphocyte Count 2.11 X10^3/uL (0.83-4.51); Absolute Neutrophil Count 3.2 X10^3/uL (2.0-7.7); Basophil# 0.03 X10^3/uL; Basophil% 0.5 % (0-1); Eosinophil# 0.26 X10^3/uL; Eosinophils% 4.3 % (0-5); Hematocrit 35.8 % (37-47); Lymphocyte # 2.11 X10^3/ul (0.83-4.51); Lymphocyte % 34.6 % (19-41); Mean Corp Hgb Conc 30.7 g/dL (32-36); Mean Corpuscular Hgb 26.1 pg (27.0-32.0); Mean Corpuscular Volume 84.8 fL (81-99); Mean Platelet Vol. 9.2 fl (6.2-12.0); Monocyte# 0.46 X10^3/uL; Monocyte% 7.5 % (0-10); NRBC Flagged by Analyzer 0 % (0-5); Neutrophil # 3.23 X10^3/uL (2.7-7.7); Neutrophil % 52.9 % (47-70); Platelet Count 272 K/mm3 (150-450); RBC Distribution Width CV 15.3 % (11.6-14.6); RBC Distribution Width SD 45.2 fl (35.1-43.9); Red Blood Count 4.22 M/mm3 (4.2-5.4); White Blood Count 6.1 K/mm3 (4.4-11.0)
[2021-01-09 05:58] LABS: ALB/GLOB Ratio 1.2 RATIO (0.9-2.4); AST(SGOT) 12 U/L (15-37); Alanine Aminotransfer ALT/SGPT 22 U/L (13-56); Albumin, Serum 3.4 g/dL (3.2-5.0); Alkaline Phosphatase 42 U/L (45-117); Anion Gap 7 (5-15); BUN 3 mg/dL (7-18); BUN/Creat Ratio 4.4 RATIO (10-20); Calcium,Total 8.5 mg/dL (8.5-10.1); Chloride 105 mmol/L (98-107); Creatinine, Serum 0.69 mg/dL (0.55-1.02); EST Glomerular Filtration Rate 115 mL/min (>60); Est Glom Filt Rate - Afr Amer 139 mL/min (>60); Estimated Creatinine Clearance 135.92 ml/min; Globulin 2.8 g/dL (2.2-4.2); Glucose 88 mg/dL (74-106); Potassium 3.6 mmol/L (3.5-5.1); Protein, Total 6.2 g/dL (6.4-8.2); Sodium Level 139 mmol/L (136-145)
[2021-01-09] MEDS: Metoclopramide 10 MG/2 ML Vial 5 MG IV (08:39)
[2021-01-09] MEDS: 0.9% Saline Lock 10 ML Syringe IV ×3 (08:58→14:37)
[2021-01-09] MEDS: Potassium Chloride 10mEq/100mL 10 MEQ/100 ML IV.SOLN. 75 MEQ IV BOLUS ×2 (08:58→10:46)
--- NOTE | 2021-01-09 09:00 | NURSING ---
pt states she is worried that KCL riders will burn- rate decreased for pt comfort.
[2021-01-09] MEDS: Metoclopramide 10 MG/2 ML Vial IV ×2 (14:36→20:36)
[2021-01-09] MEDS: Ketorolac 15 MG/ML Vial IV (14:36)
--- NOTE | 2021-01-09 17:07 | PCM.PN.HOSP ---
Subjective Subjective: Patient still having nausea and vomiting. Initially in the morning patient denied abdominal pain but later nurse reported she is getting mild abdominal pain due to retching and dry heaving. Objective Data Objective Data Vital Signs: Vital Signs Temp Pulse Resp BP Pulse Ox 98.7 F 99 18 144/103 H 97 01/09/21 15:07 01/09/21 15:07 01/09/21 15:07 01/09/21 15:07 01/09/21 15:07 Oxygen Delivery Method Room Air Weight: 198 lb 13.711 oz Body Mass Index (BMI) 29.3 Intake & Output: Intake and Output for Last 24 Hours 01/07/21 01/08/21 01/09/21 23:59 23:59 23:59 Intake Total 1000 / 1000 3185.5 / 3185.5 Output Total 1900 / 1900 Balance 1000 / 1000 1285.5 / 1285.5 Lab / Micro Data Result Diagrams: 01/09/21 05:30 01/09/21 05:30 Labs: Laboratory Results - last 24 hr 01/08/21 01/08/21 01/08/21 20:45 20:45 20:45 WBC 8.5 RBC 4.80 Hgb 12.6 Hct 39.7 MCV 82.7 MCH 26.3 L MCHC 31.7 L RDW Std Deviation 43.2 RDW Coeff of Roz 15.0 H Plt Count 336 MPV 9.2 Immature Gran % (Auto) 0.400 Neut % (Auto) 72.7 H Lymph % (Auto) 17.5 L [place] % (Auto) 6.1 Eos % (Auto) 2.9 Baso % (Auto) 0.4 Absolute Neuts (auto) 6.2 Absolute Lymphs (auto) 1.49 Nucleated RBC % 0 Sodium 140 Potassium 3.0 L Chloride 104 Carbon Dioxide 31.0 Anion Gap 5 BUN 7 Creatinine 0.93 Estim Creat Clear Calc 100.84 Est GFR (MDRD) Af Amer 98 Est GFR (MDRD) Non-Af 81 BUN/Creatinine Ratio 7.6 L Glucose 104 Calcium 9.2 Magnesium 2.1 Total Bilirubin AST ALT Alkaline Phosphatase Total Protein Albumin Globulin Albumin/Globulin Ratio 01/09/21 01/09/21 05:30 05:30 WBC 6.1 RBC 4.22 Hgb 11.0 L Hct 35.8 L MCV 84.8 MCH 26.1 L MCHC 30.7 L RDW Std Deviation 45.2 H RDW Coeff of Roz 15.3 H Plt Count 272 MPV 9.2 Immature Gran % (Auto) 0.200 Neut % (Auto) 52.9 Lymph % (Auto) 34.6 [place] % (Auto) 7.5 Eos % (Auto) 4.3 Baso % (Auto) 0.5 Absolute Neuts (auto) 3.2 Absolute Lymphs (auto) 2.11 Nucleated RBC % 0 Sodium 139 Potassium 3.6 Chloride 105 Carbon Dioxide 27.0 Anion Gap 7 BUN 3 L Creatinine 0.69 Estim Creat Clear Calc 135.92 Est GFR (MDRD) Af Amer 139 Est GFR (MDRD) Non-Af 115 BUN/Creatinine Ratio 4.4 L Glucose 88 Calcium 8.5 Magnesium Total Bilirubin 0.20 AST 12 L ALT 22 Alkaline Phosphatase 42 L Total Protein 6.2 L Albumin 3.4 Globulin 2.8 Albumin/Globulin Ratio 1.2 Radiography Diagnostic Testing: Radiology Impression Abdomen/Pelvis CT 01/08/21 22:33 IMPRESSION: Left ureteral stent in good position. There is minimal free fluid in the pelvis. Individualized dose optimization techniques were used for this CT. at 2332 Reported and signed by: Trenton Shelley MD Electronically Signed: Trenton Shelley MD at 23:31 EDT Tel , Service support , Physical Exam Narrative General: Alert, Oriented x3, Cooperative HEENT: Atraumatic, PERRLA, EOMI, Normocephalic Oral: Oral mucosa is dry. No Gingival or Mucosal Lesions/ Ulcerations Neck: Supple, No JVD, Negative Carotid Bruits Lungs: Air entry diminished in bilateral lung bases. No crepitation/rhonchi Cardiovascular: Regular rate, Regular Rhythm, Normal S1, Normal S2, No murmurs Abdomen: Bowel Sounds Present, Soft, Non Tender, Non-Distended : No renal angle tenderness. No suprapubic tenderness. Port scar of robotic hysterectomy healthy. Extremities: No edema, Capillary Refill Less than 3 Seconds Skin: No rashes, No breakdown Musculoskeletal: No Tenderness to Palpation of Joints or Extremities Neurological: Cranial nerves II-XII grossly intact, Deep Tendon Reflexes 2+/4 and Symmetrical, Neuro grossly intact Psych/Mental Status: Normal Affect, Appropriate. Assessment & Plan Assessment/Plan (1) Nausea and vomiting: (2) Hypokalemia: PLAN: Intractable nausea and vomiting, exact etiology unclear. Abdomen is soft. Symptomatic management. IV Zofran and Reglan. Liquids as per tolerated. CT abdomen shows left ureteral stent in good position. K3.6. Magnesium 2.1. Liver chemistry ALT AST low. Alkaline phosphatase low. On tamsulosin for left ureteral stent.
[2021-01-09] MEDS: Ondansetron 4 MG/2 ML Vial 8 MG IV (18:03)
[2021-01-09] MEDS: HYDROcodone Bitartrate/Apap 5/325 Tablet PO (18:44)
[2021-01-09] MEDS: Tamsulosin HCl 0.4 MG Capsule PO (18:44)
[2021-01-10 03:00] VITALS: BP 116/75; PULSE 67; RESP 16; TEMP 37.1; O2SAT 98
[2021-01-10] MEDS: Lactated Ringers 1,000 ML 150 ML IV (03:19)
[2021-01-10 07:00] LABS: Anion Gap 6 (5-15); BUN 2 mg/dL (7-18); BUN/Creat Ratio 2.8 RATIO (10-20); Calcium,Total 8.9 mg/dL (8.5-10.1); Chloride 106 mmol/L (98-107); EST Glomerular Filtration Rate 112 mL/min (>60); Est Glom Filt Rate - Afr Amer 135 mL/min (>60); Estimated Creatinine Clearance 133.98 ml/min; Glucose 87 mg/dL (74-106); Magnesium 1.9 mg/dL (1.6-2.6); Potassium 3.5 mmol/L (3.5-5.1); Sodium Level 140 mmol/L (136-145)
[2021-01-10] MEDS: Tamsulosin HCl 0.4 MG Capsule PO (09:10)
[2021-01-10 09:11] VITALS: BP 128/82; PULSE 90; RESP 18; TEMP 36.8; O2SAT 97
--- NOTE | 2021-01-10 09:22 | DCINST_ITS ---
Discharge Instructions Diet Discharge Diet: Light diet - advance as tolerated Activity Discharge Activity: Return to Normal Activity Weight Bearing Status: Weight bearing as tolerated Dressing / Incision Call your doctor if you observe: Fever of 101 or Higher, Numbness or Tingling, Inability to urinate, Inability to have a bowel movement, Using more than one pad per hour, Shortness of breath, Dizziness, Fainting spells, Swelling in the ankles, Chest pain and Uncontrolled pain Discharge Plan Admission Admit Date/Time: 01/09/21 01:14 Primary Reason for Your Visit: Intractable nausea and vomiting Attending Provider: Gregory Cash Primary Care Provider: Tiffanie Physician,No Primary Instructions Patient Instructions: ED Vomiting (Adult) Additional Instructions / Restrictions: Follow-up with [facility] after robotic hysterectomy in 1 week. Discharge Orders/Prescriptions Prescriptions: Continued tamsulosin 0.4 MG capsule 0.4 mg PO DAILY RF: 0 metoclopramide HCl [Reglan] 10 mg tablet 10 mg PO Q6H PRN (Reason: nausea and vomiting) Qty: 20 RF: 0 ondansetron 4 mg tablet,disintegrating 4 mg PO Q8H PRN PRN (Reason: Nausea) Qty: 20 RF: 0 hydrocodone-acetaminophen 1 TABLET tablet 1 tab PO Q6H PRN PRN (Reason: Pain) 3 Days Qty: 10 RF: 0 Discontinued ciprofloxacin HCl 500 mg tablet 500 mg PO BID RF: 0 Referrals / Follow Up: Care Physician,No Primary [Primary Care Provider] - Disposition Disposition (needs filled in before D/C Order can be placed): Home, self care
--- NOTE | 2021-01-10 09:35 | DS.PCM_ITS ---
Providers Date of Admission: 01/09/21 Primary Care Physician: No Primary Care Phys Reason For Visit: NAUSEA, VOMITING Diagnosis Discharge Diagnosis (1) Nausea and vomiting: Status: Acute Code(s): R11.2 - Nausea with vomiting, unspecified (2) Hypokalemia: Status: Acute Code(s): E87.6 - Hypokalemia Medications at Discharge Home Medications tamsulosin 0.4 mg PO DAILY 12/30/20 metoclopramide HCl [Reglan] 10 mg PO Q6H PRN #20 tab 01/05/21 ondansetron 4 mg PO Q8H PRN PRN #20 tab 01/05/21 hydrocodone-acetaminophen 1 tab PO Q6H PRN PRN 3 Days #10 tablet 01/07/21 Hospital Course Summary of Care Provided Minutes Spent on Discharge: 35 Hospital Course: This is a 20-year-old female who was admitted with i ntractable nausea and vomiting. Patient had robotic hysterectomy for endometrial cancer on December 18 at [facility] and had follow-up with [facility] after that. Patient still has both ovaries and fallopian tubes. Patient was admitted on MedSurg floor. Initially kept n.p.o. with IV fluid, IV antiemetics Zofran and Reglan. Nausea and vomiting controlled. Patient controlled clear liquid. No abdominal pain. Patient had CT abdomen which showed left ureteral stent in good position on the right no acute abdominal process. Patient had Zofran and Reglan at home. Was discharged home and advised follow- up with PCP in 1 to 2 weeks. Intractable nausea and vomiting, exact etiology unclear possible GERD/viral. Discharge medication reconciliation done. Discharge follow-up instructions completed. Discharge process discussed with the patient and all questions were answered to patient's satisfaction. Total time spent, exact 35 minutes on discharge meds reconciliation, examination, coordination of care with nurses and ancillary staff, review of imaging and blood test and discussion with the patient on follow-up instructions Clinical Impression(s) from Imaging Studies Abdomen/Pelvis CT 01/08/21 22:33 IMPRESSION: Left ureteral stent in good position. There is minimal free fluid in the pelvis. Individualized dose optimization techniques were used for this CT. Physical Exam Narrative No abdominal pain. Nausea and vomiting controlled on Reglan and Zofran. Physical exam General: Alert, Oriented x3, Cooperative HEENT: Atraumatic, PERRLA, EOMI, Normocephalic Oral: No Gingival or Mucosal Lesions/ Ulcerations Neck: Supple, No JVD, Negative Carotid Bruits Lungs: Air entry equal in bilateral lung bases. No crepitation/rhonchi Cardiovascular: Regular rate, Regular Rhythm, Normal S1, Normal S2, No murmurs Abdomen: Bowel Sounds Present, Soft, Non Tender, Non-Distended : Laparoscopic ports surgery is well-healed. No renal angle tenderness. No suprapubic tenderness. Extremities: No edema, Capillary Refill Less than 3 Seconds Skin: No rashes, No breakdown Musculoskeletal: No Tenderness to Palpation of Joints or Extremities Neurological: Cranial nerves II-XII grossly intact, Deep Tendon Reflexes 2+/4 and Symmetrical, Neuro grossly intact Psych/Mental Status: Normal Affect, Appropriate. ABG / Lab / Microbiology Data Result Diagrams: 01/09/21 05:30 01/10/21 06:16 Laboratory: Laboratory Results - last 24 hr 01/10/21 06:16 Sodium 140 Potassium 3.5 Chloride 106 Carbon Dioxide 28.0 Anion Gap 6 BUN 2 L Creatinine 0.70 Estim Creat Clear Calc 133.98 Est GFR (MDRD) Af Amer 135 Est GFR (MDRD) Non-Af 112 BUN/Creatinine Ratio 2.8 L Glucose 87 Calcium 8.9 Magnesium 1.9 D/C Instructions Discharge Diet: Light diet - advance as tolerated Discharge Activity: Return to Normal Activity Weight Bearing Status: Weight bearing as tolerated Call your doctor if you observe: Fever of 101 or Higher, Numbness or Tingling, Inability to urinate, Inability to have a bowel movement, Using more than one pad per hour, Shortness of breath, Dizziness, Fainting spells, Swelling in the ankles, Chest pain and Uncontrolled pain Meaningful Use Info Meaningful Use Diagnoses (Choose all that apply): None applicable Discharge Plan Admission Admit Date/Time: 01/09/21 01:14 Primary Reason for Your Visit: Intractable nausea and vomiting Attending Provider: Gregory Cash Primary Care Provider: Care Physician,No Primary Instructions Patient Instructions: ED Vomiting (Adult) Additional Instructions / Restrictions: Follow-up with [facility] after robotic hysterectomy in 1 week. Discharge Orders/Prescriptions Prescriptions: Continued tamsulosin 0.4 MG capsule 0.4 mg PO DAILY RF: 0 metoclopramide HCl [Reglan] 10 mg tablet 10 mg PO Q6H PRN (Reason: nausea and vomiting) Qty: 20 RF: 0 ondansetron 4 mg tablet,disintegrating 4 mg PO Q8H PRN PRN (Reason: Nausea) Qty: 20 RF: 0 hydrocodone-acetaminophen 1 TABLET tablet 1 tab PO Q6H PRN PRN (Reason: Pain) 3 Days Qty: 10 RF: 0 Discontinued ciprofloxacin HCl 500 mg tablet 500 mg PO BID RF: 0 Referrals / Follow Up: Care Physician,No Primary [Primary Care Provider] - Disposition Disposition (needs filled in before D/C Order can be placed): Home, self care Visit Charges Inpatient E&M: [id number] Disch Hosp
[2021-01-10 09:37] VITALS: O2SAT 96
[2021-01-10 10:55] VITALS: BP 128/82; PULSE 90; RESP 18; TEMP 36.8; O2SAT 97
== END 2021-01-10 10:55 | disposition home or self-care (01) ==
LOC: ED 22:58 → MS3 01-09 01:16
PROVIDERS: Emergency Medicine; Nurse Practitioner Family; Admitting Provider Hospitalist; Emergency Provider Emergency Medicine; Visit Provider Internal Medicine
DX: E87.6 Hypokalemia (principal); R11.2 Nausea with vomiting, unspecified; Z85.42 Personal history of malignant neoplasm of other parts of uterus; Z79.899 Other long term (current) drug therapy; Z90.710 Acquired absence of both cervix and uterus
CPT/HCPCS: 36415; 74177; 80048; 80053; 83735; 85025; 96361; 96365; 96366; 96375; 96376; 99218; 99284; J7030; J7050; J7120; Q9967; A4216; G0378; J2405

== ENCOUNTER 2021-01-17 12:49 | Emergency (ER) | payer OTHER, SELFPAY ==
[2021-01-09 01:52] VITALS: BMI 29.3
[2021-01-17] VITALS (9 sets, daily range): BP systolic 135–148; BP diastolic 79–106; PULSE 69–120; RESP 12–18; TEMP 36.6–37.2; O2SAT 95–98; BMI 28.9
--- NOTE | 2021-01-17 14:06 | CT_ITS ---
STUDY: CT BRAIN WITHOUT CONTRAST REASON FOR EXAM: Female, 20 years old. intractable nausea RADIATION DOSAGE (If Supplied By Facility): CTDIvol = ( 44.99 ) mGy, DLP = ( 765.18 ) mGycm TECHNIQUE: Transaxial CT imaging of the brain was performed without administration of intravenous contrast material. Individualized dose optimization techniques were used for this CT. COMPARISON: No relevant priors. FINDINGS: Normal soft tissue structures. Normal calvarium. Normal size ventricles and extra-axial spaces for the patient''s age. Normal white matter tracts of the cerebral hemispheres. Normal basal ganglia and thalami. Normal brainstem. Normal cerebellum. There is no intracranial hemorrhage. There are no findings of an acute ischemic infarction. Normal visualized paranasal sinuses. CT/Brain/Head without Contrast IMPRESSION: Normal unenhanced CT scan of the brain. Electronically Signed: Keegan Root MD at 15:50 EDT Tel , Service support ,
--- NOTE | 2021-01-17 14:09 | EDS_ITS ---
HPI <Dr. Rei Tatum DO - Last Filed: 01/17/21 17:38> History of Present Illness Chief Complaint: Abd Pain Informant: patient and parent Narrative Narrative: 20-year-old female states that last month she was diagnosed with uterine cancer. She underwent hysterectomy at [facility] with Dr. Escobedo. 2 days later she was admitted with hematuria and needed stents in the ureter. Mom states that since that time she has had nausea vomiting and abdominal pain. They have been back and forth to multiple facilities 2 nights ago was at [facility]'s emergency room. They went there because mom wanted to transfer her care. She was given names of doctors to follow-up with. Today mom notes that there is a significant amount of blood in the urine. Patient is having worsening abdominal pain nausea and vomiting. PFSH <Dr. Rei Tatum DO - Last Filed: 01/17/21 17:38> PFSH Medical History Endometrial cancer Menorrhagia Non-smoker Ureter injury Home Medications tamsulosin 0.4 mg PO DAILY 12/30/20 [History Last Taken 01/08/21 13:00] metoclopramide HCl [Reglan] 10 mg PO Q6H PRN #20 tab 01/05/21 [Rx Last Taken Unknown] ondansetron 4 mg PO Q8H PRN PRN #20 tab 01/05/21 [Rx Last Taken 01/08/21 07:00] hydrocodone-acetaminophen 1 tab PO Q6H PRN PRN 3 Days #10 tablet 01/07/21 [Rx Last Taken Unknown] Allergy/AdvReac Type Severity Reaction Status Date / Time promethazine [From Phenergan] Allergy Vomiting Verified 01/17/21 12:50 morphine AdvReac Chest Verified 01/17/21 12:50 tightness Surgical History History of hysterectomy for cancer Social History (Updated 01/17/21 @ 14:[address] Rei Tatum DO) household members: family Smoking Status: Never smoker ROS <Dr. Rei Tatum DO - Last Filed: 01/17/21 17:38> ROS ED Constitutional Constitutional ED: Denies chills or weight loss Eyes Eyes: Denies change in vision or diplopia ENT ENT ED: Denies ear pain, rhinorrhea or sore throat Cardiovascular Cardiovascular: Denies chest pain, orthopnea, palpitations or racing heartbeat Respiratory/Chest Respiratory/Chest: Denies cough, dyspnea or orthopnea Gastrointestinal Gastrointestinal: Reports abdominal pain, constipation, nausea and vomiting; Denies diarrhea Genitourinary Genitourinary ED: Denies dysuria, hematuria or urinary frequency Musculoskeletal Musculoskeletal: Denies arthralgias or myalgias Integumentary Denies abscess or rash Neurologic Neurologic: Denies headache(s) or weakness Psychiatric Psychiatric: Denies anxiety, depression, suicidal ideation or suicidal thoughts Endocrine Endocrinology: Denies polydipsia, polyphagia or polyuria Allergic/Immunologic Allergic/Immunologic ED: Denies mouth swelling, tongue swelling or urticaria EXAM <Dr. Rei Tatum, DO - Last Filed: 01/17/21 17:38> Physical Exam Narrative Exam Narrative: Patient appears ill vomiting on the bed. Const Vital Signs: 01/17/21 12:50 01/17/21 12:59 01/17/21 15:13 Temperature 98 F 98.6 F Temperature Source Temporal Oral Pulse Rate 116 H 118 H 107 H Respiratory Rate 18 16 12 Blood Pressure 147/104 H 142/106 H 147/98 H Blood Pressure Mean 118 118 114 Pulse Ox 97 97 98 Oxygen Delivery Method Room Air Room Air Room Air 01/17/21 16:50 01/17/21 17:49 01/17/21 18:00 Temperature 98.5 F 98.1 F 98.1 F Temperature Source Oral Oral Oral Pulse Rate 115 H 120 H 101 H Respiratory Rate 18 18 18 Blood Pressure 148/101 H 139/90 H 145/99 H Blood Pressure Mean 116 106 114 Pulse Ox 97 97 95 Oxygen Delivery Method Room Air Room Air Room Air 01/17/21 19:00 01/17/21 21:28 01/17/21 23:07 Temperature 98.8 F 98.9 F 98.5 F Temperature Source Temporal Oral Oral Pulse Rate 69 107 H 101 H Respiratory Rate 18 16 18 Blood Pressure 135/93 H 143/79 H 140/87 H Blood Pressure Mean 107 100 104 Pulse Ox 96 97 97 Oxygen Delivery Method Room Air Room Air Room Air 01/18/21 01:14 Temperature Temperature Source Pulse Rate 96 Respiratory Rate 18 Blood Pressure 128/74 H Blood Pressure Mean 92 Pulse Ox 97 Oxygen Delivery Method Room Air Positive well nourished and well developed General Appearance ED: well developed HEENT Reports normocephalic, head/scalp atraumatic and moist mucous membranes Eyes PERRL and EOMs intact bilaterally Neck no lymphadenopathy, supple and no JVD Resp normal respiratory effort and clear to auscultation bilaterally Cardio regular rate and no murmurs Rate: tachycardic GI Palpation: soft, tender and guarding Back/Spine no CVA tenderness and normal ROM Extremity normal to inspection General Extremety ED: Negative for edema General Extremity: Negative for edema Neuro oriented x3 and CN's II-XII intact bilaterally Sensorium / Orientation: alert Motor Exam: strength 5/5 throughout Psych mental status grossly normal Mood & Affect: Negative for depressed or tearful Skin no rashes or lesions noted and no wounds <Dr. Josué Reinoso, DO - Last Filed: 01/18/21 02:33> Physical Exam Const Vital Signs: 01/17/21 12:50 01/17/21 12:59 01/17/21 15:13 Temperature 98 F 98.6 F Temperature Source Temporal Oral Pulse Rate 116 H 118 H 107 H Respiratory Rate 18 16 12 Blood Pressure 147/104 H 142/106 H 147/98 H Blood Pressure Mean 118 118 114 Pulse Ox 97 97 98 Oxygen Delivery Method Room Air Room Air Room Air 01/17/21 16:50 01/17/21 17:49 01/17/21 18:00 Temperature 98.5 F 98.1 F 98.1 F Temperature Source Oral Oral Oral Pulse Rate 115 H 120 H 101 H Respiratory Rate 18 18 18 Blood Pressure 148/101 H 139/90 H 145/99 H Blood Pressure Mean 116 106 114 Pulse Ox 97 97 95 Oxygen Delivery Method Room Air Room Air Room Air 01/17/21 19:00 01/17/21 21:28 01/17/21 23:07 Temperature 98.8 F 98.9 F 98.5 F Temperature Source Temporal Oral Oral Pulse Rate 69 107 H 101 H Respiratory Rate 18 16 18 Blood Pressure 135/93 H 143/79 H 140/87 H Blood Pressure Mean 107 100 104 Pulse Ox 96 97 97 Oxygen Delivery Method Room Air Room Air Room Air 01/18/21 01:14 Temperature Temperature Source Pulse Rate 96 Respiratory Rate 18 Blood Pressure 128/74 H Blood Pressure Mean 92 Pulse Ox 97 Oxygen Delivery Method Room Air MDM <Dr. Rei Tatum, DO - Last Filed: 01/17/21 17:38> [facility] Narrative Medical decision making narrative: Patient did get some relief with fluids Zofran and Dilaudid but then her symptoms returned. White count is 9.8 with a neutrophil count of 82.2. Coags normal. Creatinine normal 0.99. Urinalysis is nitrate positive greater than 100 red cells 25-50 white cells. She received Rocephin. Blood and urine cultures obtained. CT down pelvis negative. Family would like to be transferred to [facility]. I spoke with urology and with medicine. I am waiting to hear back from them. Family understands that this may be quite a wait for beds. Lab Data Labs: Laboratory Results - last 24 hr 01/17/21 01/17/21 01/17/21 14:50 14:50 14:50 WBC 9.8 RBC 5.16 Hgb 13.0 Hct 42.4 MCV 82.2 MCH 25.2 L MCHC 30.7 L RDW Std Deviation 41.0 RDW Coeff of Roz 14.1 Plt Count 273 MPV 9.3 Immature Gran % (Auto) 0.200 Neut % (Auto) 82.2 H Lymph % (Auto) 10.7 L [place] % (Auto) 5.1 Eos % (Auto) 1.5 Baso % (Auto) 0.3 Absolute Neuts (auto) 8.0 H Absolute Lymphs (auto) 1.05 Nucleated RBC % 0 PT 13.2 INR 1.1 APTT 28.3 Sodium 140 Potassium 3.5 Chloride 107 Carbon Dioxide 27.0 Anion Gap 6 BUN 9 Creatinine 0.99 Estim Creat Clear Calc 94.73 Est GFR (MDRD) Af Amer 92 Est GFR (MDRD) Non-Af 76 BUN/Creatinine Ratio 9.1 L Glucose 100 Lactic Acid Calcium 9.6 Total Bilirubin 0.40 AST 12 L ALT 25 Alkaline Phosphatase 46 Total Protein 8.1 Albumin 4.2 Globulin 3.9 Albumin/Globulin Ratio 1.1 Lipase 94 Urine Color Urine Clarity Urine pH Ur Specific Organ Urine Protein Urine Glucose (UA) Urine Ketones Urine Occult Blood Urine Nitrite Urine Bilirubin Urine Urobilinogen Ur Leukocyte Esterase Urine RBC Urine WBC Ur Squamous Epith Cells Urine Bacteria Urine Mucus 01/17/21 01/17/21 14:50 17:30 WBC RBC Hgb Hct MCV MCH MCHC RDW Std Deviation RDW Coeff of Roz Plt Count MPV Immature Gran % (Auto) Neut % (Auto) Lymph % (Auto) [place] % (Auto) Eos % (Auto) Baso % (Auto) Absolute Neuts (auto) Absolute Lymphs (auto) Nucleated RBC % PT INR APTT Sodium Potassium Chloride Carbon Dioxide Anion Gap BUN Creatinine Estim Creat Clear Calc Est GFR (MDRD) Af Amer Est GFR (MDRD) Non-Af BUN/Creatinine Ratio Glucose Lactic Acid 0.9 Calcium Total Bilirubin AST ALT Alkaline Phosphatase Total Protein Albumin Globulin Albumin/Globulin Ratio Lipase Urine Color Brown Urine Clarity Cloudy Urine pH 6.5 Ur Specific Organ 1.025 Urine Protein 500 H Urine Glucose (UA) Normal Urine Ketones 15 H Urine Occult Blood 250 H Urine Nitrite Positive H Urine Bilirubin 1 H Urine Urobilinogen 1 H Ur Leukocyte Esterase 500 H Urine RBC > 100 SEEN Urine WBC 25-50 SEEN Ur Squamous Epith Cells 0-5 SEEN Urine Bacteria 0 SEEN Urine Mucus 0 SEEN Radiography Diagnostic Testing: Radiology Impression Brain CT 01/17/21 14:06 IMPRESSION: Normal unenhanced CT scan of the brain. Electronically Signed: Keegan Root MD at 15:50 EDT Tel , Service support , Abdomen/Pelvis CT 01/17/21 15:30 IMPRESSION: Normal enhanced CT of the abdomen and pelvis with left ureteral stent. Electronically Signed: Keegan Root MD at 15:56 EDT Tel , Service support , <Dr. Josué Reinoso, DO - Last Filed: 01/18/21 02:33> [facility] Lab Data Labs: Laboratory Results - last 24 hr 01/17/21 01/17/21 01/17/21 14:50 14:50 14:50 WBC 9.8 RBC 5.16 Hgb 13.0 Hct 42.4 MCV 82.2 MCH 25.2 L MCHC 30.7 L RDW Std Deviation 41.0 RDW Coeff of Roz 14.1 Plt Count 273 MPV 9.3 Immature Gran % (Auto) 0.200 Neut % (Auto) 82.2 H Lymph % (Auto) 10.7 L [place] % (Auto) 5.1 Eos % (Auto) 1.5 Baso % (Auto) 0.3 Absolute Neuts (auto) 8.0 H Absolute Lymphs (auto) 1.05 Nucleated RBC % 0 PT 13.2 INR 1.1 APTT 28.3 Sodium 140 Potassium 3.5 Chloride 107 Carbon Dioxide 27.0 Anion Gap 6 BUN 9 Creatinine 0.99 Estim Creat Clear Calc 94.73 Est GFR (MDRD) Af Amer 92 Est GFR (MDRD) Non-Af 76 BUN/Creatinine Ratio 9.1 L Glucose 100 Lactic Acid Calcium 9.6 Total Bilirubin 0.40 AST 12 L ALT 25 Alkaline Phosphatase 46 Total Protein 8.1 Albumin 4.2 Globulin 3.9 Albumin/Globulin Ratio 1.1 Lipase 94 Urine Color Urine Clarity Urine pH Ur Specific Organ Urine Protein Urine Glucose (UA) Urine Ketones Urine Occult Blood Urine Nitrite Urine Bilirubin Urine Urobilinogen Ur Leukocyte Esterase Urine RBC Urine WBC Ur Squamous Epith Cells Urine Bacteria Urine Mucus 01/17/21 01/17/21 14:50 17:30 WBC RBC Hgb Hct MCV MCH MCHC RDW Std Deviation RDW Coeff of Roz Plt Count MPV Immature Gran % (Auto) Neut % (Auto) Lymph % (Auto) [place] % (Auto) Eos % (Auto) Baso % (Auto) Absolute Neuts (auto) Absolute Lymphs (auto) Nucleated RBC % PT INR APTT Sodium Potassium Chloride Carbon Dioxide Anion Gap BUN Creatinine Estim Creat Clear Calc Est GFR (MDRD) Af Amer Est GFR (MDRD) Non-Af BUN/Creatinine Ratio Glucose Lactic Acid 0.9 Calcium Total Bilirubin AST ALT Alkaline Phosphatase Total Protein Albumin Globulin Albumin/Globulin Ratio Lipase Urine Color Brown Urine Clarity Cloudy Urine pH 6.5 Ur Specific Organ 1.025 Urine Protein 500 H Urine Glucose (UA) Normal Urine Ketones 15 H Urine Occult Blood 250 H Urine Nitrite Positive H Urine Bilirubin 1 H Urine Urobilinogen 1 H Ur Leukocyte Esterase 500 H Urine RBC > 100 SEEN Urine WBC 25-50 SEEN Ur Squamous Epith Cells 0-5 SEEN Urine Bacteria 0 SEEN Urine Mucus 0 SEEN Radiography Diagnostic Testing: Radiology Impression Brain CT 01/17/21 14:06 IMPRESSION: Normal unenhanced CT scan of the brain. Electronically Signed: Keegan Root MD at 15:50 EDT Tel , Service support , Abdomen/Pelvis CT 01/17/21 15:30 IMPRESSION: Normal enhanced CT of the abdomen and pelvis with left ureteral stent. Electronically Signed: Keegan Root MD at 15:56 EDT Tel , Service support , Discharge Plan Triage Chief Complaint: Abd Pain Other Complaint: Complaint Nausea/Vomiting ED Provider: Josué Reinoso Dx/Rx/DC Orders Clinical Impression: Intractable vomiting, Intractable abdominal pain, UTI (urinary tract infection) Prescriptions: No Action tamsulosin 0.4 MG capsule 0.4 mg PO DAILY RF: 0 metoclopramide HCl [Reglan] 10 mg tablet 10 mg PO Q6H PRN (Reason: nausea and vomiting) Qty: 20 RF: 0 ondansetron 4 mg tablet,disintegrating 4 mg PO Q8H PRN PRN (Reason: Nausea) Qty: 20 RF: 0 hydrocodone-acetaminophen 1 TABLET tablet 1 tab PO Q6H PRN PRN (Reason: Pain) 3 Days Qty: 10 RF: 0 Primary Care Provider: Care Physician,No Primary Referrals: Care Physician,No Primary [Primary Care Provider] -
[2021-01-17] MEDS: 0.9% Normal Saline 1,000 ML 1000 ML IV (14:45)
[2021-01-17] MEDS: Ondansetron 4 MG/2 ML Vial IV ×3 (14:45→23:34)
[2021-01-17] MEDS: HYDROmorphone 1 MG/ML Syringe IV ×3 (14:46→23:35)
[2021-01-17 14:59] LABS: Bacteria 0 SEEN /hpf (None Seen); Mucous, Urine 0 SEEN /hpf (<or=2+)
[2021-01-17 15:06] LABS: Absolute Lymphocyte Count 1.05 X10^3/uL (0.83-4.51); Basophil# 0.03 X10^3/uL; Basophil% 0.3 % (0-1); Eosinophil# 0.15 X10^3/uL; Eosinophils% 1.5 % (0-5); Hematocrit 42.4 % (37-47); Lymphocyte # 1.05 X10^3/ul (0.83-4.51); Lymphocyte % 10.7 % (19-41); Mean Corp Hgb Conc 30.7 g/dL (32-36); Mean Corpuscular Hgb 25.2 pg (27.0-32.0); Mean Corpuscular Volume 82.2 fL (81-99); Mean Platelet Vol. 9.3 fl (6.2-12.0); Monocyte% 5.1 % (0-10); NRBC Flagged by Analyzer 0 % (0-5); Neutrophil # 8.03 X10^3/uL (2.7-7.7); Neutrophil % 82.2 % (47-70); Platelet Count 273 K/mm3 (150-450); RBC Distribution Width CV 14.1 % (11.6-14.6); Red Blood Count 5.16 M/mm3 (4.2-5.4); White Blood Count 9.8 K/mm3 (4.4-11.0)
[2021-01-17 15:12] LABS: International Normalized Ratio 1.1; Prothrombin Time (Protime)PT. 13.2 SECONDS (11.7-14.9)
[2021-01-17 15:13] LABS: Partial Thromboplast Time 28.3 Seconds (24.1-36.2)
[2021-01-17 15:19] LABS: ALB/GLOB Ratio 1.1 RATIO (0.9-2.4); AST(SGOT) 12 U/L (15-37); Alanine Aminotransfer ALT/SGPT 25 U/L (13-56); Albumin, Serum 4.2 g/dL (3.2-5.0); Alkaline Phosphatase 46 U/L (45-117); Anion Gap 6 (5-15); BUN 9 mg/dL (7-18); BUN/Creat Ratio 9.1 RATIO (10-20); Calcium,Total 9.6 mg/dL (8.5-10.1); Chloride 107 mmol/L (98-107); Color, Urine Brown (Yellow); Creatinine, Serum 0.99 mg/dL (0.55-1.02); EST Glomerular Filtration Rate 76 mL/min (>60); Est Glom Filt Rate - Afr Amer 92 mL/min (>60); Estimated Creatinine Clearance 94.73 ml/min; Globulin 3.9 g/dL (2.2-4.2); Glucose 100 mg/dL (74-106); Glucose, Dipstick Normal (Normal); Ketone-Dipstick 15 mg/dl (Negative); Leukocyte Esterase-Dipstick 500 /ul (Negative); Lipase 94 U/L (73-393); Nitrite-Dipstick Positive (Negative); Occult Blood-Urine 250 /ul (Negative); Potassium 3.5 mmol/L (3.5-5.1); Protein, Total 8.1 g/dL (6.4-8.2); Protein-Dipstick 500 mg/dl (Negative); Sodium Level 140 mmol/L (136-145); Specific Gravity, Urine 1.025 (1.002-1.030); Urine Clarity Cloudy (Clear); Urine Urobilinogen 1 mg/dl (Normal); Urine pH 6.5 (5.0 - 8.0)
--- NOTE | 2021-01-17 15:30 | CT_ITS ---
STUDY: CT ABDOMEN AND PELVIS WITH CONTRAST REASON FOR EXAM: Female, 20 years old. abdominal pain RADIATION DOSAGE (If Supplied By Facility): CTDIvol = ( 14.91 ) mGy, DLP = ( 1155.62 ) mGycm TECHNIQUE: Transaxial images were obtained from the dome of the diaphragm to the symphysis pubis without oral contrast. IV 100mL Isovue-300 was administered. Sagittal and coronal images were reconstructed. Individualized dose optimization techniques were used for this CT. COMPARISON: None. FINDINGS: The visualized lung bases are unremarkable. The visualized portions of the heart are within normal limits. Normal liver. Normal gallbladder and extrahepatic biliary system. Normal spleen. Normal pancreas. Normal bilateral adrenal glands. Normal right kidney. Left ureteral stent. No hydronephrosis, ureteral dilatation, or obvious ureteral stone. Normal visualized stomach. Normal small intestine. Normal colon. The appendix is visualized and appears normal. Normal abdominal aorta. Normal inferior vena cava. Normal retroperitoneum. Normal urinary bladder. Normal abdominal wall. Normal osseous structures. CT/Abdomen/Pelvis W IV Cont ONLY IMPRESSION: Normal enhanced CT of the abdomen and pelvis with left ureteral stent. Electronically Signed: Keegan Root MD at 15:56 EDT Tel , Service support ,
[2021-01-17 15:46] LABS: Urine Bilirubin Dipstick 1 mg/dL (Negative)
[2021-01-17 15:52] LABS: White Blood Cells 25-50 SEEN /hpf (0-5)
[2021-01-17 15:53] LABS: Red Blood Cells-Urine > 100 SEEN /hpf (0-5); Squamous Epithelial Cells - UA 0-5 SEEN /hpf (5-10)
[2021-01-17] MEDS: 0.9% Normal Saline 1,000 ML 250 ML IV ×2 (16:22→21:27)
[2021-01-17] MEDS: Ceftriaxone 1 GM/50 ML BAG IV (17:51)
--- NOTE | 2021-01-17 18:30 | ED.RN ---
PATIENT IS ACCEPTED TO [facility], BUT THEY HAVE NO BEDS AVALIABLE SO PATIENT WILL HAVE TO STAY IN THE EMERGENCY ROOM UNITL THEY HAVE A BED FOR HER
[2021-01-17 18:31] LABS: Lactic Acid 0.9 mmol/L (0.4-1.9)
--- NOTE | 2021-01-17 23:59 | ED.RN ---
CALLED [facility], THEY ARE STILL WAITING ON A BED. THE [facility] ADVISED ME THAT THEY ARE ALL AT CAPACITY SO THEY WOULD HAVE BEDS AVAILABLE WHEN THEY COULD, THIS IS FOR ALL [facility].
[2021-01-18] VITALS (10 sets, daily range): BP systolic 128–150; BP diastolic 74–98; PULSE 74–98; RESP 14–18; TEMP 36.6; O2SAT 96–100
[2021-01-18] MEDS: Metoclopramide 10 MG/2 ML Vial IV (03:15)
[2021-01-18] MEDS: Ketorolac 15 MG/ML Vial IV ×3 (03:15→23:09)
[2021-01-18] MEDS: traMADol 50 MG Tablet PO (14:33)
[2021-01-18] MEDS: Ondansetron 4 MG/2 ML Vial IV (14:34)
[2021-01-18] MEDS: Ceftriaxone 1 GM/50 ML BAG IV (16:00)
--- NOTE | 2021-01-18 19:24 | NURSING ---
Dr Pulido aware of the following. Discussed stay with mom and patient. Patient has not had BM in 3 days and has not had her am dose of flomax since arrival. Request for orders of MOM or miralax and am dose entered. Patient prefers Miralax. He is agreeable. They are requesting we check with [facility] but we already checked there and theyre full also so will be waiting for [facility] still. Discussed room arrangement and they are aware the rooms are full but once it gets slower, we can move her to 5 or 6 so she has a tv to watch since she is here for a while and likely all weekend. They are ageeable to this plan.
--- NOTE | 2021-01-18 19:41 | ED.RN ---
CALLED THE [facility] AND THEY STILL DO NOT HAVE A BED FOR THIS PATIENT AT THIS TIME.
[2021-01-18] MEDS: Polyethylene Glycol 3350 17 GM PACKET PO (19:54)
--- NOTE | 2021-01-18 23:03 | ED.RN ---
Patient reports she has not had a BM still but having pain in her L abdomen again and states it is a 10. No further needs, will let Dr know.
[2021-01-19 00:02] VITALS: RESP 15
--- NOTE | 2021-01-19 00:03 | ED.RN ---
aware of pain unchanged at 10 after IV med
[2021-01-19] MEDS: traMADol 50 MG Tablet PO (00:43)
[2021-01-19 01:55] VITALS: BP 138/98; PULSE 74; RESP 17; TEMP 36.7; O2SAT 98
[2021-01-19] MEDS: Metoclopramide 10 MG/2 ML Vial 5 MG IV (02:00)
== END 2021-01-19 02:03 ==
PROVIDERS: Emergency Medicine; Emergency Provider Emergency Medicine
DX: N39.0 Urinary tract infection, site not specified (principal); R11.2 Nausea with vomiting, unspecified; R10.9 Unspecified abdominal pain; K59.00 Constipation, unspecified; Z85.42 Personal history of malignant neoplasm of other parts of uterus; Z90.710 Acquired absence of both cervix and uterus
CPT/HCPCS: 70450; 74177; 80053; 81001; 83605; 83690; 85025; 85610; 85730; 87040; 87086; 87088; 96365; 96375; 96376; 99285; J7030; J7050; Q9967; A4216; J2405

== ENCOUNTER 2021-02-09 11:14 | Emergency (ER) | payer MEDICAID, SELFPAY ==
[2021-01-17 12:50] VITALS: BMI 28.9
[2021-02-09 11:15] VITALS: BP 126/62; PULSE 138; RESP 18; TEMP 36.3; O2SAT 96; BMI 28.8
--- NOTE | 2021-02-09 11:33 | CT_ITS ---
HISTORY: lower abd pain s/p intercourse; s/p hyst. TECHNIQUE: Helically acquired images were obtained of the abdomen and pelvis without oral or IV contrast as per renal stone protocol. A radiation dose optimization technique was used for this scan. # of images incl. paperwork: [id number]. COMPARISON: 01/17/2021. FINDINGS: LUNG BASES: Mild bibasilar atelectasis. BOWEL: Bowel including appendix nondilated. Moderate stool in the colon. PERITONEUM: No free air. LIVER/BILIARY TRACT: Unremarkable liver.Gallbladder contracted. SPLEEN: Non-enlarged. PANCREAS: No peripancreatic inflammation. KIDNEYS AND URETERS: Removal of the left ureteral stent. Left perinephric and periureteral edema with mild hydronephrosis and hydroureter down to the level of a 3 mm mid ureteral calculus. No right nephrolithiasis or obstructing ureterolithiasis. ADRENAL GLANDS: No nodules. VESSELS: Abdominal aorta nondilated. Small retroperitoneal lymph nodes noted. PELVIC ORGANS: Decreased free fluid in the pelvis. Stranding in the pelvis involving the bladder, ovaries, and cervical stump. Hysterectomy. BONES: Intact. CT/Abdomen/Pelvis without Cont IMPRESSION: Mild left hydronephrosis secondary to a 3 mm mid ureteral calculus. Removal of left ureteral stent. Nonspecific edema or inflammation in the pelvis involving the cervical stump, ovaries, and bladder. Consider correlation with pelvic Doppler ultrasound to exclude acute adnexal process. Individualized dose optimization techniques were used for this CT. at 1213 Reported and signed by: Mercy Gutierrez MD Electronically Signed: Mercy Gutierrez MD at 12:12 EDT Tel , Service support ,
[2021-02-09] MEDS: HYDROcodone Bitartrate/Apap 5/325 Tablet PO (11:37)
[2021-02-09] MEDS: Ondansetron ODT 4 MG Tablet 8 MG PO (11:37)
--- NOTE | 2021-02-09 11:49 | ED.VIS.GI ---
HPI HPI - GI History of Present Illness Chief Complaint: Nausea/Vomiting Informant: patient Abdominal Pain/Flank Pain Onset: Days (2) Context: Sudden Onset (Just after intercourse) Timing: Continuous Quality: Aching Location: - (Pelvic nonlateralizing) Current Severity: Moderate Maximum Severity: Severe Worsened by: Nothing Relieved by: Nothing Nausea/Vomiting/Emesis GI Symptom: Positive for Nausea and Vomiting Quality: Positive for Blood streaks (Wants only, yesterday) Diarrhea/Melena/Hematochezia GI Symptom: Negative for Diarrhea, Melena and Hematochezia Associated Symptoms Associated Symptoms: Negative for Dysuria, Frequency, Hematuria and Urgency Narrative Narrative: Patient had a hysterectomy 2 months ago, complicated by injury to the ureter for which she had ureteral stent placed, that was then was complicated by pain and hematuria, subsequently she had the stent removed, and she states the hematuria has resolved and now she is urinating normally. She was told she could have intercourse starting 6 weeks postoperatively, she had intercourse 2 nights ago for the first time and had pain and bleeding immediately afterwards. This pain has persisted, the vaginal bleeding has resolved it was relatively mild. She was seen at [facility] yesterday they treated her symptoms and she had blood work but no imaging. The pain persists this morning so she presents here with her mother for further evaluation. [facility] Medical History Endometrial cancer Menorrhagia Non-smoker Ureter injury Home Medications tamsulosin 0.4 mg PO DAILY 12/30/20 [History Last Taken 01/08/21 13:00] metoclopramide HCl [Reglan] 10 mg PO Q6H PRN #20 tab 01/05/21 [Rx Last Taken Unknown] ondansetron 4 mg PO Q8H PRN PRN #20 tab 01/05/21 [Rx Last Taken 01/08/21 07:00] hydrocodone-acetaminophen 1 tab PO Q6H PRN PRN 3 Days #10 tablet 01/07/21 [Rx Last Taken Unknown] mirtazapine 15 mg PO QHS 02/09/21 [History Last Taken Unknown] Allergy/AdvReac Type Severity Reaction Status Date / Time promethazine [From Phenergan] Allergy Vomiting Verified 02/09/21 11:18 morphine AdvReac Chest Verified 02/09/21 11:18 tightness Surgical History History of hysterectomy for cancer Social History household members: family Smoking Status: Never smoker ROS ROS ED Constitutional Constitutional ED: Denies chills or fever(s) Eyes Eyes: Denies change in vision or diplopia ENT ENT ED: Denies rhinorrhea or sore throat Cardiovascular Cardiovascular: Denies chest pain or palpitations Respiratory/Chest Respiratory/Chest: Denies cough or dyspnea Gastrointestinal Gastrointestinal: Reports as per HPI, abdominal pain, nausea and vomiting; Denies diarrhea Genitourinary Genitourinary ED: Denies dysuria or hematuria Musculoskeletal Musculoskeletal: Denies back pain or neck pain Integumentary Denies abscess or rash Neurologic Neurologic: Reports headache(s); Denies paresthesias or weakness Psychiatric Psychiatric: Denies anxiety or suicidal thoughts EXAM Physical Exam Const Vital Signs: 02/09/21 11:15 Temperature 97.3 F L Temperature Source Temporal Pulse Rate 138 H Respiratory Rate 18 Blood Pressure 126/62 H Blood Pressure Mean 83 Pulse Ox 96 Oxygen Delivery Method Room Air Positive well nourished and well developed Constitutional Narrative: Appears comfortable General Appearance ED: well developed and NAD HEENT Reports moist mucous membranes normocephalic and atraumatic Eyes PERRL and EOMs intact bilaterally Neck full ROM and supple Resp normal respiratory effort and clear to auscultation bilaterally Cardio regular rate, regular rhythm and no murmurs GI non-tender and non-distended Auscultation: normoactive bowel sounds Palpation: soft and tender suprapubic; Negative for guarding or rebound tenderness present Back/Spine no CVA tenderness General Back: other FROM Extremity normal to inspection General Extremety ED: Negative for edema, pulses abnormal or tenderness General Extremity: Negative for edema or pulses abnormal Neuro oriented x3, CN's II-XII intact bilaterally and no sensory deficits noted Sensorium / Orientation: awake and alert Motor Exam: strength 5/5 throughout Skin no rashes or lesions noted and no wounds MDM MDM MDM Narrative Medical decision making narrative: CT of the patient abdomen/pelvis was obtained, there is some delay in getting resolved but it shows a 3 mm left UVJ stone along with some mild hydronephrosis and stranding. States she had a urinalysis and blood work done at [facility] yesterday and I told her they were unremarkable so I did not feel they need to be repeated and they were in agreement. Her pain was treated, however I do not necessarily think that this stone is causing all of her pain since she had pain with vaginal bleeding that started right after intercourse 2 days ago. She has polycystic ovarian syndrome, it is certainly possible that she ruptured a small cyst. She is having no more bleeding or vaginal pain so I do not think she needs an exam right now to look for laceration. I do not think she has torsion, she is very comfortable. She is given urine strainers, advised to continue monitoring her pain especially if and after she passes this 3 mm stone, for which expectant management is indicated. Follow-up advised. Discharge Plan Triage Chief Complaint: Nausea/Vomiting ED Provider: Moose Liu Dx/Rx/DC Orders Clinical Impression: Pelvic pain in female, Ureterolithiasis Instructions: ED Pelvic Pain, Unknown Cause, ED Kidney Stone w/ Colic Prescriptions: No Action tamsulosin 0.4 MG capsule 0.4 mg PO DAILY RF: 0 metoclopramide HCl [Reglan] 10 mg tablet 10 mg PO Q6H PRN (Reason: nausea and vomiting) Qty: 20 RF: 0 ondansetron 4 mg tablet,disintegrating 4 mg PO Q8H PRN PRN (Reason: Nausea) Qty: 20 RF: 0 hydrocodone-acetaminophen 1 TABLET tablet 1 tab PO Q6H PRN PRN (Reason: Pain) 3 Days Qty: 10 RF: 0 mirtazapine 15 mg tablet 15 mg PO QHS RF: 0 Primary Care Provider: Care Physician,No Primary Referrals: urologist, your [Other] - 3-5 Days if not improving Disposition Disposition: Home, self care
[2021-02-09] MEDS: Ketorolac 30 MG/ML Syringe IM (12:06)
[2021-02-09 13:14] VITALS: PULSE 89; RESP 18; O2SAT 97
[2021-02-09] MEDS: fentaNYL 100 MCG/2 ML Ampul 50 MCG IM (14:12)
[2021-02-09 15:19] VITALS: O2SAT 99
== END 2021-02-09 15:20 | disposition home or self-care (01) ==
PROVIDERS: Emergency Provider Emergency Medicine
DX: N13.2 Hydronephrosis with renal and ureteral calculous obstruction (principal); R10.2 Pelvic and perineal pain; E28.2 Polycystic ovarian syndrome; Z85.42 Personal history of malignant neoplasm of other parts of uterus; Z90.711 Acquired absence of uterus with remaining cervical stump
CPT/HCPCS: 74176; 96372; 99283

== ENCOUNTER 2021-02-10 12:22 | Emergency (ER) | payer MEDICAID, SELFPAY ==
[2021-02-09 11:15] VITALS: BMI 28.8
[2021-02-10 12:23] VITALS: BP 122/80; PULSE 128; RESP 16; TEMP 39.5; O2SAT 94; BMI 28.8
--- NOTE | 2021-02-10 12:39 | RAD_ITS ---
STUDY: X-RAY CHEST REASON FOR EXAM: Female, 21 years old. fever TECHNIQUE: Frontal portable view of the chest COMPARISON: 30 December 2020 FINDINGS: There are ill-defined faint focal/nodular lower lung zone opacities. There is no pneumothorax, pulmonary edema or cardiomegaly. Left costophrenic sulcus is blunted, likely atelectasis. RAD/Chest 1 View (Portable) IMPRESSION: Faint lower lung opacities, possibly early viral pneumonia. Electronically Signed: Raven Gonzalez MD at 13:30 EDT Tel , Service support ,
--- NOTE | 2021-02-10 12:39 | ED.VIS.GI ---
HPI HPI - GI History of Present Illness Chief Complaint: Abd Pain Informant: patient and parent Abdominal Pain/Flank Pain Onset: Days Context: Gradual Onset Timing: Continuous Current Severity: Mild Maximum Severity: Mild Nausea/Vomiting/Emesis GI Symptom: Positive for Nausea and Vomiting Associated Symptoms Associated Symptoms: Positive for Dysuria Narrative Narrative: 21-year-old female has had recent hysterectomy in the last several months due to endometrial cancer. She had complication with ureteral injury for which she needs stents. She has had frequent issues with abdominal pain with nausea vomiting. Was she was seen yesterday. Reportedly had a negative urine on outlying facility. Now complaining of fever. Prior similar symptoms: Yes Recent Illness/Hospitalization: No PFSH PFSH Medical History Endometrial cancer Menorrhagia Non-smoker Ureter injury Home Medications tamsulosin 0.4 mg PO DAILY 12/30/20 [History Last Taken 01/08/21 13:00] metoclopramide HCl [Reglan] 10 mg PO Q6H PRN #20 tab 01/05/21 [Rx Last Taken Unknown] ondansetron 4 mg PO Q8H PRN PRN #20 tab 01/05/21 [Rx Last Taken 01/08/21 07:00] hydrocodone-acetaminophen 1 tab PO Q6H PRN PRN 3 Days #10 tablet 01/07/21 [Rx Last Taken Unknown] mirtazapine 15 mg PO QHS 02/09/21 [History Last Taken Unknown] cephalexin 500 mg PO Q6H 7 Days #28 cap 02/10/21 [Rx Last Taken Unknown] ondansetron 4 mg PO Q6H PRN #10 tab 02/10/21 [Rx Last Taken Unknown] Allergy/AdvReac Type Severity Reaction Status Date / Time promethazine [From Phenergan] Allergy Vomiting Verified 02/10/21 12:23 Surgical History History of hysterectomy for cancer Social History household members: family Smoking Status: Never smoker ROS ROS ED ROS Narrative Abdominal pain with nausea and vomiting. Fever. Dysuria. Review of Systems ROS Unobtainable: Denies due to encephalopathy Constitutional Constitutional ED: Reports fever(s) ENT ENT ED: Denies ear pain or sore throat Cardiovascular Cardiovascular: Denies chest pain Respiratory/Chest Respiratory/Chest: Reports cough; Denies dyspnea Gastrointestinal Gastrointestinal: Reports abdominal pain, nausea and vomiting; Denies diarrhea Genitourinary Genitourinary ED: Reports dysuria Musculoskeletal Musculoskeletal: Denies myalgias Integumentary Denies rash Neurologic Neurologic: Reports headache(s) Psychiatric Psychiatric: Denies depression Endocrine Endocrinology: Denies polyuria Hematologic/Lymphatic Hematologic/Lymphatic: Denies easy bruising Allergic/Immunologic Allergic/Immunologic ED: Denies urticaria EXAM Physical Exam Narrative Exam Narrative: Young female no acute distress. Vital signs stable she is febrile 103.1. Tachycardic to 128. Normal blood pressure 122/80. She does not look septic. HEENT exam unremarkable. Neck nontender no lymphadenopathy. Lungs clear to auscultation bilaterally. Heart tachycardic no murmur. Abdomen soft. Nondistended normal bowel sounds no peritoneal signs. Mild suprapubic tenderness. No signs of obstruction. Moving all 4 extremities. Skin no rashes. Back nontender no CVA tenderness. Neurologically awake alert no focal motor deficits. Const Vital Signs: 02/10/21 12:23 02/10/21 13:46 02/10/21 14:00 Temperature 103.1 F H 103 F H 99 F Temperature Source Oral Oral Oral Pulse Rate 128 H 111 H Respiratory Rate 16 18 Blood Pressure 122/80 H 117/75 Blood Pressure Mean 94 89 Pulse Ox 94 96 Oxygen Delivery Method Room Air Room Air Positive well nourished and well developed General Appearance ED: well developed HEENT normocephalic and atraumatic Eyes PERRL and EOMs intact bilaterally Neck no lymphadenopathy, supple and no JVD General: Negative for tenderness Resp normal respiratory effort and clear to auscultation bilaterally Cardio regular rhythm and no murmurs Rate: tachycardic GI non-distended and no masses Auscultation: normoactive bowel sounds Palpation: soft and tender Back/Spine no CVA tenderness General Back: Negative for CVA tenderness Extremity full ROM General Extremety ED: Negative for edema or tenderness General Extremity: Negative for edema Neuro CN's II-XII intact bilaterally and moves all extremities Sensorium / Orientation: alert, oriented to person, oriented to place and oriented to time Psych mental status grossly normal Skin Lesions: no lesions Rashes: no rashes MDM MDM MDM Narrative Medical decision making narrative: Young female prior hysterectomy for endometrial cancer. Recurrent abdominal pain nausea and vomiting. Today she does have a fever. UA and labs are being obtained. She had a CAT scan done yesterday and has had multiple CAT scans done in the last several months. I do not think she needs abdominal imaging at this time. I will obtain a chest x-ray due to a cough and the fever. She will be treated with IV fluids and IV Toradol and Zofran. Patient was having continued discomfort was also given IV morphine. Multiple repeat exams the last being at 3:15 PM. Patient is doing well. She is currently receiving IV antibiotics. She is comfortable being discharged home. I do not feel clinically she needs admitted. Patient will be discharged home on Keflex 4 times a day for 1 week for UTI. Urine culture was sent. She also be written for Zofran for nausea. Lab Data Attestation: I reviewed the patient's lab results. Lab results narrative: Labs are unremarkable. White count slightly elevated 11.8. Hemoglobin 10.9 at baseline. Electrolytes unremarkable normal creatinine and gap. Liver enzymes normal. Chest x-ray portable 1 view read by myself shows no acute abnormality. Covid negative. UA consistent UTI with 25-50 white cells and bacteria. Urine culture sent. Started on IV Rocephin. Labs: Laboratory Results - last 24 hr 02/10/21 02/10/21 02/10/21 12:50 12:50 13:44 WBC 11.8 H RBC 4.19 L Hgb 10.9 L Hct 34.8 L MCV 83.1 MCH 26.0 L MCHC 31.3 L RDW Std Deviation 41.8 RDW Coeff of Roz 13.9 Plt Count 189 MPV 9.0 Immature Gran % (Auto) 0.600 Neut % (Auto) 80.7 H Lymph % (Auto) 8.1 L [place] % (Auto) 9.8 Eos % (Auto) 0.6 Baso % (Auto) 0.2 Absolute Neuts (auto) 9.5 H Absolute Lymphs (auto) 0.95 Nucleated RBC % 0 Sodium 138 Potassium 3.7 Chloride 104 Carbon Dioxide 27.0 Anion Gap 7 BUN 10 Creatinine 0.95 Estim Creat Clear Calc 97.90 Est GFR (MDRD) Af Amer 96 Est GFR (MDRD) Non-Af 79 BUN/Creatinine Ratio 10.6 Glucose 107 H Calcium 9.3 Total Bilirubin 0.50 AST 14 L ALT 26 Alkaline Phosphatase 54 Total Protein 7.5 Albumin 3.1 L Globulin 4.4 H Albumin/Globulin Ratio 0.7 L Urine Color Yellow Urine Clarity Cloudy Urine pH 8.0 Ur Specific [place] 1.010 Urine Protein 30 H Urine Glucose (UA) Normal Urine Ketones 50 H Urine Occult Blood 250 H Urine Nitrite Negative Urine Bilirubin Negative Urine Urobilinogen Normal Ur Leukocyte Esterase 500 H Urine RBC 0-5 SEEN Urine WBC 25-50 SEEN Ur Squamous Epith Cells 0-5 SEEN Urine Bacteria 1+ Urine Mucus 0 SEEN Radiography Diagnostic Testing: Radiology Impression Chest X-Ray 02/10/21 12:39 IMPRESSION: Faint lower lung opacities, possibly early viral pneumonia. Electronically Signed: Raven Gonzalez MD at 13:30 EDT Tel , Service support , Chest x-ray portable 1 view interpreted by myself and the radiologist. I do not see any acute abnormality. Normal cardiac silhouette, mediastinum and lung goel. Discharge Plan Triage Chief Complaint: Abd Pain ED Provider: Jerrell Lozada Dx/Rx/DC Orders Clinical Impression: UTI (urinary tract infection) Instructions: ED Bladder Infection, Female (Adult) Prescriptions: New cephalexin 500 mg capsule 500 mg PO Q6H 7 Days Qty: 28 RF: 0 ondansetron 4 mg tablet,disintegrating 4 mg PO Q6H PRN (Reason: nausea and vomiting) Qty: 10 RF: 0 No Action tamsulosin 0.4 MG capsule 0.4 mg PO DAILY RF: 0 metoclopramide HCl [Reglan] 10 mg tablet 10 mg PO Q6H PRN (Reason: nausea and vomiting) Qty: 20 RF: 0 ondansetron 4 mg tablet,disintegrating 4 mg PO Q8H PRN PRN (Reason: Nausea) Qty: 20 RF: 0 hydrocodone-acetaminophen 1 TABLET tablet 1 tab PO Q6H PRN PRN (Reason: Pain) 3 Days Qty: 10 RF: 0 mirtazapine 15 mg tablet 15 mg PO QHS RF: 0 Primary Care Provider: Care Physician,No Primary Referrals: Katherine Reid MD [STAFF PHYSICIAN] - 3-5 Days Care Physician,No Primary [Primary Care Provider] - Activity Restrictions/Additional Instructions: You have a urinary tract infection. It will be sent for a culture. You will be treated with antibiotic Keflex. 1 pill 4 times a day for 7 days until it is all gone. Zofran as needed for nausea. You may swallow them or hormone your tongue will dissolve. Plenty of fluids and rest. Tylenol and/or Motrin for fever and pain. Follow-up to ensure you are improving. Disposition Disposition: Home, self care
[2021-02-10] MEDS: Ketorolac 30 MG/ML Syringe IV (12:56)
[2021-02-10] MEDS: Ondansetron 4 MG/2 ML Vial IV (12:56)
[2021-02-10] MEDS: 0.9% Normal Saline 1,000 ML 1000 ML IV (12:56)
[2021-02-10 12:57] LABS: Absolute Lymphocyte Count 0.95 X10^3/uL (0.83-4.51); Absolute Neutrophil Count 9.5 X10^3/uL (2.0-7.7); Basophil# 0.02 X10^3/uL; Basophil% 0.2 % (0-1); Eosinophil# 0.07 X10^3/uL; Eosinophils% 0.6 % (0-5); Hematocrit 34.8 % (37-47); Hemoglobin 10.9 g/dL (12.0-15.0); Lymphocyte # 0.95 X10^3/ul (0.83-4.51); Lymphocyte % 8.1 % (19-41); Mean Corp Hgb Conc 31.3 g/dL (32-36); Mean Corpuscular Volume 83.1 fL (81-99); Monocyte# 1.16 X10^3/uL; Monocyte% 9.8 % (0-10); NRBC Flagged by Analyzer 0 % (0-5); Neutrophil # 9.52 X10^3/uL (2.7-7.7); Neutrophil % 80.7 % (47-70); Platelet Count 189 K/mm3 (150-450); RBC Distribution Width CV 13.9 % (11.6-14.6); RBC Distribution Width SD 41.8 fl (35.1-43.9); Red Blood Count 4.19 M/mm3 (4.2-5.4); White Blood Count 11.8 K/mm3 (4.4-11.0)
[2021-02-10] MEDS: Acetaminophen 500 MG Tablet 1000 MG PO (12:57)
[2021-02-10 13:13] LABS: ALB/GLOB Ratio 0.7 RATIO (0.9-2.4); AST(SGOT) 14 U/L (15-37); Alanine Aminotransfer ALT/SGPT 26 U/L (13-56); Albumin, Serum 3.1 g/dL (3.2-5.0); Alkaline Phosphatase 54 U/L (45-117); Anion Gap 7 (5-15); BUN 10 mg/dL (7-18); BUN/Creat Ratio 10.6 RATIO (10-20); Calcium,Total 9.3 mg/dL (8.5-10.1); Chloride 104 mmol/L (98-107); Creatinine, Serum 0.95 mg/dL (0.55-1.02); EST Glomerular Filtration Rate 79 mL/min (>60); Est Glom Filt Rate - Afr Amer 96 mL/min (>60); Globulin 4.4 g/dL (2.2-4.2); Glucose 107 mg/dL (74-106); Potassium 3.7 mmol/L (3.5-5.1); Protein, Total 7.5 g/dL (6.4-8.2); Sodium Level 138 mmol/L (136-145)
[2021-02-10] MEDS: morphine 8 MG/ML Syringe IV (13:16)
--- NOTE | 2021-02-10 13:21 | ED.RN ---
confirmed with pt that she is not allergic to morphine. per pt, she had an adverse reaction the first time she ever had it but never again
[2021-02-10 13:46] VITALS: TEMP 39.4
[2021-02-10 13:48] LABS: Mucous, Urine 0 SEEN /hpf (<or=2+)
[2021-02-10 13:49] LABS: Color, Urine Yellow (Yellow); Glucose, Dipstick Normal (Normal); Ketone-Dipstick 50 mg/dl (Negative); Leukocyte Esterase-Dipstick 500 /ul (Negative); Nitrite-Dipstick Negative (Negative); Occult Blood-Urine 250 /ul (Negative); Protein-Dipstick 30 mg/dl (Negative); Urine Bilirubin Dipstick Negative (Negative); Urine Clarity Cloudy (Clear); Urine Urobilinogen Normal (Normal)
[2021-02-10 13:57] LABS: Bacteria 1+ /hpf (None Seen); Red Blood Cells-Urine 0-5 SEEN /hpf (0-5); Squamous Epithelial Cells - UA 0-5 SEEN /hpf (5-10); White Blood Cells 25-50 SEEN /hpf (0-5)
[2021-02-10 14:00] VITALS: BP 117/75; PULSE 111; RESP 18; TEMP 37.2; O2SAT 96
[2021-02-10] MEDS: Ceftriaxone 1 GM/50 ML BAG IV (14:21)
[2021-02-10 15:29] VITALS: BP 121/82; PULSE 110; RESP 18; TEMP 37.1; O2SAT 98
== END 2021-02-10 15:57 | disposition home or self-care (01) ==
PROVIDERS: Emergency Provider Emergency Medicine
DX: N39.0 Urinary tract infection, site not specified (principal); Z85.42 Personal history of malignant neoplasm of other parts of uterus; Z90.711 Acquired absence of uterus with remaining cervical stump
CPT/HCPCS: 71045; 80053; 81001; 85025; 87077; 87086; 87088; 87186; 87426; 96361; 96365; 96374; 96375; 99283; J7030; J7050; A4216; J2405

== ENCOUNTER 2021-02-20 00:03 | Emergency (ER) | payer MEDICAID, SELFPAY ==
[2021-02-20 00:04] VITALS: BP 131/91; PULSE 91; RESP 15; TEMP 36.4; O2SAT 100; BMI 29.2
[2021-02-20 00:41] LABS: Absolute Lymphocyte Count 1.36 X10^3/uL (0.83-4.51); Absolute Neutrophil Count 7.1 X10^3/uL (2.0-7.7); Basophil# 0.04 X10^3/uL; Basophil% 0.4 % (0-1); Eosinophil# 0.19 X10^3/uL; Eosinophils% 2.1 % (0-5); Hematocrit 37.3 % (37-47); Hemoglobin 11.5 g/dL (12.0-15.0); Lymphocyte # 1.36 X10^3/ul (0.83-4.51); Lymphocyte % 14.8 % (19-41); Mean Corp Hgb Conc 30.8 g/dL (32-36); Mean Corpuscular Hgb 25.4 pg (27.0-32.0); Mean Corpuscular Volume 82.5 fL (81-99); Mean Platelet Vol. 8.9 fl (6.2-12.0); Monocyte# 0.43 X10^3/uL; Monocyte% 4.7 % (0-10); NRBC Flagged by Analyzer 0 % (0-5); Neutrophil # 7.13 X10^3/uL (2.7-7.7); Neutrophil % 77.6 % (47-70); Platelet Count 500 K/mm3 (150-450); RBC Distribution Width CV 14.1 % (11.6-14.6); RBC Distribution Width SD 41.9 fl (35.1-43.9); Red Blood Count 4.52 M/mm3 (4.2-5.4); White Blood Count 9.2 K/mm3 (4.4-11.0)
--- NOTE | 2021-02-20 00:47 | EDS_ITS ---
HPI History of Present Illness Chief Complaint: Nausea/Vomiting Informant: patient and parent Narrative Narrative: Patient is a 21-year-old female who presents to the emergency department for abdominal pain and nausea/vomiting. She was seen in [facility] urology group and had a stent placed in her right ureter. 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 She states that she was discharged home and has been having pain since. It has been progressively getting worse. She has been taking Toradol for this at home which is not giving her any relief. She describes the pain as severe currently. She has had some painful urination. She is currently on Bactrim for UTI. She denies any change in bowel movements. She has left-sided flank pain associated with this. She has had stents before in the past and has had issues with this before. [facility] Medical History Endometrial cancer Menorrhagia Non-smoker Ureter injury Home Medications tamsulosin 0.4 mg PO DAILY 12/30/20 [History Last Taken 01/08/21 13:00] metoclopramide HCl [Reglan] 10 mg PO Q6H PRN #20 tab 01/05/21 [Rx Last Taken Unknown] ondansetron 4 mg PO Q8H PRN PRN #20 tab 01/05/21 [Rx Last Taken 01/08/21 07:00] hydrocodone-acetaminophen 1 tab PO Q6H PRN PRN 3 Days #10 tablet 01/07/21 [Rx Last Taken Unknown] mirtazapine 15 mg PO QHS 02/09/21 [History Last Taken Unknown] cephalexin 500 mg PO Q6H 7 Days #28 cap 02/10/21 [Rx Last Taken Unknown] ondansetron 4 mg PO Q6H PRN #10 tab 02/10/21 [Rx Last Taken Unknown] hydrocodone-acetaminophen 1 tab PO Q6H PRN PRN 3 Days #10 tablet 02/20/21 [Rx Last Taken Unknown] ondansetron 4 mg PO Q8H 4 Days #12 tab 02/20/21 [Rx Last Taken Unknown] Allergy/AdvReac Type Severity Reaction Status Date / Time promethazine [From Phenergan] Allergy Vomiting Verified 02/20/21 00:04 Surgical History History of hysterectomy for cancer Social History household members: family Smoking Status: Never smoker ROS ROS ED Constitutional Constitutional ED: Denies chills or fever(s) Eyes Eyes: Denies change in vision ENT ENT ED: Denies epistaxis or rhinorrhea Cardiovascular Cardiovascular: Denies chest pain or palpitations Respiratory/Chest Respiratory/Chest: Denies cough, dyspnea or dyspnea on exertion Gastrointestinal Gastrointestinal: Reports abdominal pain, nausea and vomiting; Denies diarrhea Genitourinary Genitourinary ED: Reports dysuria and hematuria; Denies urinary frequency Integumentary Denies rash Neurologic Neurologic: Denies dizziness, headache(s) or weakness EXAM Physical Exam Const Vital Signs: 02/20/21 00:04 02/20/21 02:10 Temperature 97.6 F L Temperature Source Oral Pulse Rate 91 Respiratory Rate 15 17 Blood Pressure 131/91 H Blood Pressure Mean 104 Pulse Ox 100 Oxygen Delivery Method Room Air Room Air Positive well nourished and well developed General Appearance ED: well developed HEENT Reports normocephalic and head/scalp atraumatic Eyes PERRL and EOMs intact bilaterally Neck supple General: Negative for tenderness Chest Wall inspection of chest normal Resp normal respiratory effort and clear to auscultation bilaterally Auscultation: Negative for rales, rhonchi or wheezes Cardio regular rate, regular rhythm and no murmurs GI GI Narrative: Diffuse abdominal pain mostly in the left lower quadrant. No rebound or guarding. Left-sided flank pain as well. Normal active bowel sounds. Extremity normal to inspection General Extremety ED: Negative for edema or tenderness General Extremity: Negative for edema Neuro oriented x3, CN's II-XII intact bilaterally and no sensory deficits noted Sensorium / Orientation: alert Motor Exam: strength 5/5 throughout Psych mental status grossly normal Skin no rashes or lesions noted MDM MDM MDM Narrative Medical decision making narrative: Patient presents to the ED for left-sided flank and abdominal pain with nausea and vomiting. She has a ureteral stent in place and has been having pain since this was placed 1 week ago. Upon arrival to the emergency department vital signs within normal limits. Will check basic lab work along with urinalysis. Will get in contact with her urologist at [facility]. Patient's lab work returned without any significant acute abnormality. She does not have a high white blood cell count. No evidence of acute urinary tract infection. Creatinine is 1.15 on reexamination patient is feeling better. I have not heard back from [facility] urology group. I discussed with the patient if she feels comfortable being discharged home she will follow up in the morning. She states she does not want to wait to see if they call back. She has had 4 CTs over the past 2 months of her abdomen and pelvis. With the benign exam and relatively normal work-up I do not feel we have to repeat this now as her symptoms are improving. I did write a prescription for [place] and Zofran to help with symptomatic treatment in the meantime. The patient and her mother understand and are agreeable this plan. Return precautions are reviewed. Lab Data Labs: Laboratory Results - last 24 hr 02/20/21 02/20/21 02/20/21 00:15 00:15 01:47 WBC 9.2 RBC 4.52 Hgb 11.5 L Hct 37.3 MCV 82.5 MCH 25.4 L MCHC 30.8 L RDW Std Deviation 41.9 RDW Coeff of Roz 14.1 Plt Count 500 H MPV 8.9 Immature Gran % (Auto) 0.400 Neut % (Auto) 77.6 H Lymph % (Auto) 14.8 L [place] % (Auto) 4.7 Eos % (Auto) 2.1 Baso % (Auto) 0.4 Absolute Neuts (auto) 7.1 Absolute Lymphs (auto) 1.36 Nucleated RBC % 0 Sodium 138 Potassium 3.7 Chloride 103 Carbon Dioxide 26.0 Anion Gap 9 BUN 6 L Creatinine 1.15 H Estim Creat Clear Calc 80.87 Est GFR (MDRD) Af Amer 77 Est GFR (MDRD) Non-Af 63 BUN/Creatinine Ratio 5.2 L Glucose 100 Calcium 9.7 Total Bilirubin 0.30 AST 17 ALT 31 Alkaline Phosphatase 69 Total Protein 8.9 H Albumin 3.8 Globulin 5.1 H Albumin/Globulin Ratio 0.7 L Urine Color Yellow Urine Clarity Clear Urine pH 8.0 Ur Specific [place] 1.010 Urine Protein 15 H Urine Glucose (UA) Normal Urine Ketones Negative Urine Occult Blood 250 H Urine Nitrite Negative Urine Bilirubin Negative Urine Urobilinogen Normal Ur Leukocyte Esterase 25 H Urine RBC 5-10 SEEN Urine WBC 0-5 SEEN Ur Squamous Epith Cells 0-5 SEEN Urine Bacteria 0 SEEN Urine Mucus 0 SEEN Discharge Plan Triage Chief Complaint: Nausea/Vomiting ED Provider: Tye Waterman Dx/Rx/DC Orders Clinical Impression: Renal colic, Nausea Instructions: Renal Angioplasty and Stenting, ED Vomiting (Adult) Prescriptions: New hydrocodone-acetaminophen 5-325 mg tablet 1 tab PO Q6H PRN PRN (Reason: Pain) 3 Days Qty: 10 RF: 0 ondansetron 4 mg tablet,disintegrating 4 mg PO Q8H 4 Days Qty: 12 RF: 0 No Action tamsulosin 0.4 MG capsule 0.4 mg PO DAILY RF: 0 metoclopramide HCl [Reglan] 10 mg tablet 10 mg PO Q6H PRN (Reason: nausea and vomiting) Qty: 20 RF: 0 ondansetron 4 mg tablet,disintegrating 4 mg PO Q8H PRN PRN (Reason: Nausea) Qty: 20 RF: 0 hydrocodone-acetaminophen 1 TABLET tablet 1 tab PO Q6H PRN PRN (Reason: Pain) 3 Days Qty: 10 RF: 0 mirtazapine 15 mg tablet 15 mg PO QHS RF: 0 cephalexin 500 mg capsule 500 mg PO Q6H 7 Days Qty: 28 RF: 0 ondansetron 4 mg tablet,disintegrating 4 mg PO Q6H PRN (Reason: nausea and vomiting) Qty: 10 RF: 0 Primary Care Provider: Care Physician,No Primary Referrals: Care Physician,No Primary [Primary Care Provider] - Activity Restrictions/Additional Instructions: Please call your urologist first thing in the morning to be seen. Disposition Discharge Date/Time: 02/20/21 03:15
[2021-02-20 00:53] LABS: ALB/GLOB Ratio 0.7 RATIO (0.9-2.4); AST(SGOT) 17 U/L (15-37); Alanine Aminotransfer ALT/SGPT 31 U/L (13-56); Albumin, Serum 3.8 g/dL (3.2-5.0); Alkaline Phosphatase 69 U/L (45-117); Anion Gap 9 (5-15); BUN 6 mg/dL (7-18); BUN/Creat Ratio 5.2 RATIO (10-20); Calcium,Total 9.7 mg/dL (8.5-10.1); Chloride 103 mmol/L (98-107); Creatinine, Serum 1.15 mg/dL (0.55-1.02); EST Glomerular Filtration Rate 63 mL/min (>60); Est Glom Filt Rate - Afr Amer 77 mL/min (>60); Estimated Creatinine Clearance 80.87 ml/min; Globulin 5.1 g/dL (2.2-4.2); Glucose 100 mg/dL (74-106); Potassium 3.7 mmol/L (3.5-5.1); Protein, Total 8.9 g/dL (6.4-8.2); Sodium Level 138 mmol/L (136-145)
[2021-02-20] MEDS: Morphine 4 MG/ML Syringe IV (00:58)
[2021-02-20] MEDS: Ondansetron 4 MG/2 ML Vial IV (00:59)
[2021-02-20] MEDS: 0.9% Normal Saline 1,000 ML 999 ML IV (01:08)
[2021-02-20 01:59] LABS: Bacteria 0 SEEN /hpf (None Seen); Color, Urine Yellow (Yellow); Glucose, Dipstick Normal (Normal); Ketone-Dipstick Negative (Negative); Leukocyte Esterase-Dipstick 25 /ul (Negative); Mucous, Urine 0 SEEN /hpf (<or=2+); Nitrite-Dipstick Negative (Negative); Occult Blood-Urine 250 /ul (Negative); Protein-Dipstick 15 mg/dl (Negative); Urine Bilirubin Dipstick Negative (Negative); Urine Clarity Clear (Clear); Urine Urobilinogen Normal (Normal)
[2021-02-20 02:03] LABS: Red Blood Cells-Urine 5-10 SEEN /hpf (0-5); Squamous Epithelial Cells - UA 0-5 SEEN /hpf (5-10); White Blood Cells 0-5 SEEN /hpf (0-5)
[2021-02-20 02:10] VITALS: RESP 17
[2021-02-20] MEDS: HYDROcodone Bitartrate/Apap 5/325 Tablet PO (03:14)
== END 2021-02-20 03:15 | disposition home or self-care (01) ==
PROVIDERS: Emergency Provider Emergency Medicine
DX: N23 Unspecified renal colic (principal); R11.0 Nausea; N39.0 Urinary tract infection, site not specified; Z96.0 Presence of urogenital implants; Z85.42 Personal history of malignant neoplasm of other parts of uterus
CPT/HCPCS: 80053; 81001; 85025; 96361; 96374; 96375; 99284; J7030; A4216; J2405

== ENCOUNTER 2021-02-22 19:30 | Emergency (ER) | payer MEDICAID, SELFPAY ==
[2021-02-22 19:31] VITALS: BP 148/97; PULSE 114; RESP 20; TEMP 36.7; O2SAT 98; BMI 28.5
--- NOTE | 2021-02-22 20:20 | EDS_ITS ---
HPI HPI - GI History of Present Illness Chief Complaint: Nausea/Vomiting Informant: patient and parent Abdominal Pain/Flank Pain Onset: Days Timing: Continuous Quality: Cramping Location: Left Flank Current Severity: Mild Maximum Severity: Mild Nausea/Vomiting/Emesis GI Symptom: Positive for Nausea and Vomiting Onset: Days Quality: Positive for Nonbilious; Negative for Blood streaks and Coffee ground Severity: Moderate Diarrhea/Melena/Hematochezia GI Symptom: Negative for Diarrhea Associated Symptoms Associated Symptoms: Negative for Dysuria Narrative Narrative: 21-year-old female history of uterine CA with prior hysterectomy. Recently had a left ureteral stent placed by a urologist at [facility] last week. She presents almost daily to a local emergency department for pain and intractable nausea vomiting. Yesterday she was seen at [place] and then transferred up to [facility] and was discharged from there earlier this morning. No admission. Patient is having similar symptoms that she has had for the last several weeks. She denies any fever or chills. Prior similar symptoms: Yes Recent Illness/Hospitalization: Yes PFSH PFSH Medical History Endometrial cancer Menorrhagia Non-smoker Ureter injury Home Medications hydrocodone-acetaminophen 1 tab PO Q6H PRN PRN 3 Days #10 tablet 01/07/21 [Rx Last Taken Unknown] ondansetron 4 mg PO Q8H 4 Days #12 tab 02/20/21 [Rx Last Taken Unknown] oxybutynin chloride 10 mg PO DAILY 02/22/21 [History Last Taken Unknown] sulfamethoxazole-trimethoprim 1 tab PO BID 02/22/21 [History Last Taken Unknown] Allergy/AdvReac Type Severity Reaction Status Date / Time promethazine [From Phenergan] Allergy Vomiting Verified 02/20/21 00:04 Surgical History History of hysterectomy for cancer Social History household members: family Smoking Status: Never smoker ROS ROS ED Review of Systems ROS Unobtainable: Denies due to encephalopathy Constitutional Constitutional ED: Denies fever(s) ENT ENT ED: Denies ear pain or sore throat Cardiovascular Cardiovascular: Denies chest pain Respiratory/Chest Respiratory/Chest: Denies cough or dyspnea Gastrointestinal Gastrointestinal: Reports abdominal pain, nausea and vomiting; Denies diarrhea Genitourinary Genitourinary ED: Denies dysuria Musculoskeletal Musculoskeletal: Denies myalgias Integumentary Denies rash Neurologic Neurologic: Denies headache(s) Psychiatric Psychiatric: Denies depression Endocrine Endocrinology: Denies polyuria Hematologic/Lymphatic Hematologic/Lymphatic: Denies easy bruising Allergic/Immunologic Allergic/Immunologic ED: Denies urticaria EXAM Physical Exam Narrative Exam Narrative: Young female vital signs stable afebrile does not look septic or toxic. She is actively dry heaving. Mom is at bedside. HEENT exam unremarkable. She does not have dry mucous membranes. Hair is dyed green. Neck is nontender. Lungs are clear. Heart tachycardic rate about 110. Abdomen is soft. Nondistended normal bowel sounds no peritoneal signs. No signs of obstruction. He is complaining of pain but is not reproducible. Moving all 4 extremities. Neurovascular intact. No edema. Back nontender. Neurologically she is awake and alert. Const Vital Signs: 02/22/21 19:31 Temperature 98.0 F Temperature Source Temporal Pulse Rate 114 H Respiratory Rate 20 H Blood Pressure 148/97 H Blood Pressure Mean 114 Pulse Ox 98 Oxygen Delivery Method Room Air Positive well nourished and well developed General Appearance ED: well developed HEENT Reports moist mucous membranes normocephalic and atraumatic; Negative for trauma or tenderness Eyes PERRL and EOMs intact bilaterally Neck no lymphadenopathy, supple and no JVD General: Negative for tenderness Resp normal respiratory effort and clear to auscultation bilaterally Cardio regular rhythm and no murmurs Rate: tachycardic GI non-tender, non-distended and no masses Inspection: Negative for abdominal distention Auscultation: normoactive bowel sounds; Negative for hyperactive bowel sounds or hypoactive bowel sounds Palpation: soft; Negative for tender, guarding, rigid or rebound tenderness present Back/Spine no CVA tenderness General Back: Negative for CVA tenderness Extremity full ROM General Extremety ED: Negative for edema or tenderness General Extremity: Negative for edema Neuro moves all extremities Sensorium / Orientation: oriented to person, oriented to place, oriented to time and orientation impaired Psych mental status grossly normal Skin Lesions: no lesions Rashes: no rashes MDM MDM MDM Narrative Medical decision making narrative: Patient well-known to this emergency department had a prior hysterectomy currently has a left ureteral stent. Exam is benign other than her intractable nausea. To be treated with IV fluids, morphine, Toradol and Zofran. Screening labs being obtained. At this time I do not think she needs any imaging. She has a known left stent in place. Repeat exam patient is doing well at 10 PM. Abdomen is benign. I had a discussion with her and her mom. There is nothing new admitted to the hospital for. She has pain and nausea medications at home. She will follow up with her urologist this coming week. Lab Data Attestation: I reviewed the patient's lab results. Lab results narrative: CBC normal white count 8. Hemoglobin 11.4. Electrolytes unremarkable gap at 9. Normal creatinine. No signs of dehydration. Urine shows ketones no signs of infection. Labs: Laboratory Results - last 24 hr 02/22/21 02/22/21 02/22/21 20:07 20:07 21:05 WBC 8.8 RBC 4.50 Hgb 11.4 L Hct 36.8 L MCV 81.8 MCH 25.3 L MCHC 31.0 L RDW Std Deviation 41.1 RDW Coeff of Roz 13.9 Plt Count 440 MPV 9.0 Immature Gran % (Auto) 0.200 Neut % (Auto) 72.3 H Lymph % (Auto) 19.9 [place] % (Auto) 5.2 Eos % (Auto) 1.7 Baso % (Auto) 0.7 Absolute Neuts (auto) 6.4 Absolute Lymphs (auto) 1.76 Nucleated RBC % 0 Sodium 138 Potassium 4.1 Chloride 104 Carbon Dioxide 25.0 Anion Gap 9 BUN 8 Creatinine 0.92 Estim Creat Clear Calc 101.09 Est GFR (MDRD) Af Amer 98 Est GFR (MDRD) Non-Af 81 BUN/Creatinine Ratio 8.6 L Glucose 81 Calcium 9.7 Urine Color Yellow Urine Clarity Clear Urine pH 7.0 Ur Specific [place] 1.005 Urine Protein 30 H Urine Glucose (UA) Normal Urine Ketones 150 A* Urine Occult Blood 50 H Urine Nitrite Negative Urine Bilirubin Negative Urine Urobilinogen Normal Ur Leukocyte Esterase 100 H Urine RBC 0-5 SEEN Urine WBC 0-5 SEEN Ur Squamous Epith Cells 0-5 SEEN Urine Bacteria 0 SEEN Urine Mucus 0 SEEN Discharge Plan Triage Chief Complaint: Nausea/Vomiting ED Provider: Jerrell Lozada Dx/Rx/DC Orders Clinical Impression: Acute flank pain Instructions: ED Flank Pain, Uncertain Cause, ED Vomiting (Adult) Prescriptions: No Action hydrocodone-acetaminophen 1 TABLET tablet 1 tab PO Q6H PRN PRN (Reason: Pain) 3 Days Qty: 10 RF: 0 ondansetron 4 mg tablet,disintegrating 4 mg PO Q8H 4 Days Qty: 12 RF: 0 oxybutynin chloride 10 mg tablet extended release 24hr 10 mg PO DAILY RF: 0 sulfamethoxazole-trimethoprim 800-160 mg tablet 1 tab PO BID RF: 0 Primary Care Provider: Care Physician,No Primary Referrals: Care Physician,No Primary [Primary Care Provider] - Activity Restrictions/Additional Instructions: Follow-up with your urologist from [facility]. Motrin and Tylenol for pain. Zofran as needed for nausea. Pain is most likely from the stent. There is no signs of infection and you have normal kidney function. You are not dehydrated. Disposition Disposition: Home, self care
[2021-02-22 20:27] LABS: Absolute Lymphocyte Count 1.76 X10^3/uL (0.83-4.51); Absolute Neutrophil Count 6.4 X10^3/uL (2.0-7.7); Basophil# 0.06 X10^3/uL; Basophil% 0.7 % (0-1); Eosinophil# 0.15 X10^3/uL; Eosinophils% 1.7 % (0-5); Hematocrit 36.8 % (37-47); Hemoglobin 11.4 g/dL (12.0-15.0); Lymphocyte # 1.76 X10^3/ul (0.83-4.51); Lymphocyte % 19.9 % (19-41); Mean Corpuscular Hgb 25.3 pg (27.0-32.0); Mean Corpuscular Volume 81.8 fL (81-99); Monocyte# 0.46 X10^3/uL; Monocyte% 5.2 % (0-10); NRBC Flagged by Analyzer 0 % (0-5); Neutrophil # 6.38 X10^3/uL (2.7-7.7); Neutrophil % 72.3 % (47-70); Platelet Count 440 K/mm3 (150-450); RBC Distribution Width CV 13.9 % (11.6-14.6); RBC Distribution Width SD 41.1 fl (35.1-43.9); White Blood Count 8.8 K/mm3 (4.4-11.0)
[2021-02-22] MEDS: Ondansetron 4 MG/2 ML Vial IV (20:31)
[2021-02-22] MEDS: morphine 8 MG/ML Syringe IV (20:32)
[2021-02-22] MEDS: Ketorolac 30 MG/ML Syringe IV (20:32)
[2021-02-22] MEDS: NSY 0.9% NS BOLUS 1000 ML IV (20:35)
[2021-02-22 20:36] LABS: Anion Gap 9 (5-15); BUN 8 mg/dL (7-18); BUN/Creat Ratio 8.6 RATIO (10-20); Calcium,Total 9.7 mg/dL (8.5-10.1); Chloride 104 mmol/L (98-107); Creatinine, Serum 0.92 mg/dL (0.55-1.02); EST Glomerular Filtration Rate 81 mL/min (>60); Est Glom Filt Rate - Afr Amer 98 mL/min (>60); Estimated Creatinine Clearance 101.09 ml/min; Glucose 81 mg/dL (74-106); Potassium 4.1 mmol/L (3.5-5.1); Sodium Level 138 mmol/L (136-145)
[2021-02-22 21:13] LABS: Bacteria 0 SEEN /hpf (None Seen); Mucous, Urine 0 SEEN /hpf (<or=2+)
[2021-02-22 21:51] LABS: Color, Urine Yellow (Yellow); Glucose, Dipstick Normal (Normal); Leukocyte Esterase-Dipstick 100 /ul (Negative); Nitrite-Dipstick Negative (Negative); Occult Blood-Urine 50 /ul (Negative); Protein-Dipstick 30 mg/dl (Negative); Specific Gravity, Urine 1.005 (1.002-1.030); Urine Bilirubin Dipstick Negative (Negative); Urine Clarity Clear (Clear); Urine Urobilinogen Normal (Normal)
[2021-02-22 22:01] LABS: Red Blood Cells-Urine 0-5 SEEN /hpf (0-5); Squamous Epithelial Cells - UA 0-5 SEEN /hpf (5-10); White Blood Cells 0-5 SEEN /hpf (0-5)
[2021-02-22 22:02] LABS: Ketone-Dipstick 150 mg/dl (Negative)
[2021-02-22 22:18] VITALS: RESP 16
[2021-02-22 22:24] VITALS: PULSE 72; RESP 18; O2SAT 100
== END 2021-02-22 22:25 | disposition home or self-care (01) ==
PROVIDERS: Emergency Provider Emergency Medicine
DX: R10.9 Unspecified abdominal pain (principal); R11.2 Nausea with vomiting, unspecified; Z85.42 Personal history of malignant neoplasm of other parts of uterus; Z96.0 Presence of urogenital implants; Z90.710 Acquired absence of both cervix and uterus
CPT/HCPCS: 80048; 81001; 85025; 96374; 96375; 99284; J7030; A4216; J2405

== ENCOUNTER 2021-02-23 07:51 | Emergency (ER) | payer MEDICAID, SELFPAY ==
[2021-02-22 19:31] VITALS: BMI 28.5
[2021-02-23 07:54] VITALS: BP 142/92; PULSE 83; RESP 17; TEMP 37.1; O2SAT 100; BMI 28.5
--- NOTE | 2021-02-23 08:12 | EDS_ITS ---
HPI History of Present Illness Chief Complaint: Nausea/Vomiting Narrative Narrative: Persistent left-sided abdominal flank pain vomiting. The patient has a history of hysterectomy recently, she indicated she had some issue related to the left ureter she required a ureteral stent, she developed abdominal pain and vomiting when the stent was placed it was removed she had other issues related to her ureteral pathology and she had the stent replaced about 2 weeks ago since that time she is had progressively worsening spells and spasms of left flank pain she is on medication she was seen [facility] for these procedures. She was seen yesterday in this emergency department for extensive work-up that was unremarkable she is been seen in 2 or 3 other local hospitals and was transferred to [facility] the other day per the mother for this process she was discharged home was understood from the patient information she was given that the idea is to keep the stent in for as long as possible The patient had another spasm of pain to the left flank the mother wanted her taken to [facility] the paramedics were called do not transport to that facility so she was brought to this facility. The mother reports she would like to take her today to [facility] which she was planning on doing to have her further evaluated for the ongoing pain and the need for the stents. The patient and the mother reports this is identical to previous other episodes of abdominal pain is left-sided it caused her to vomit her medications do not help and there is no other new issues [facility] Medical History Endometrial cancer Menorrhagia Non-smoker Ureter injury Home Medications hydrocodone-acetaminophen 1 tab PO Q6H PRN PRN 3 Days #10 tablet 01/07/21 [Rx Last Taken Unknown] ondansetron 4 mg PO Q8H 4 Days #12 tab 02/20/21 [Rx Last Taken Unknown] oxybutynin chloride 10 mg PO DAILY 02/22/21 [History Last Taken Unknown] sulfamethoxazole-trimethoprim 1 tab PO BID 02/22/21 [History Last Taken Unknown] Allergy/AdvReac Type Severity Reaction Status Date / Time promethazine [From Phenergan] Allergy Vomiting Verified 02/23/21 07:53 Surgical History History of hysterectomy for cancer Social History household members: family Smoking Status: Never smoker ROS ROS ED ROS Narrative Left flank pain vomiting see below Constitutional Constitutional ED: Reports subjective, sweats and other; Denies chills, fever(s) or weight loss Eyes Eyes: Denies blurry vision or change in vision ENT ENT ED: Denies ear pain Cardiovascular Cardiovascular: Denies chest pain or palpitations Respiratory/Chest Respiratory/Chest: Denies dyspnea Gastrointestinal Gastrointestinal: Denies abdominal pain, nausea or vomiting Genitourinary Genitourinary ED: Denies dysuria or hematuria Musculoskeletal Musculoskeletal: Denies arthralgias or myalgias Integumentary Reports rash; Denies abscess Neurologic Neurologic: Denies weakness Psychiatric Psychiatric: Denies anxiety or depression Endocrine Endocrinology: Denies polydipsia or polyuria Allergic/Immunologic Allergic/Immunologic ED: Denies urticaria EXAM Physical Exam Narrative Exam Narrative: The patient has some mild pain to the left flank she is vomiting clear stomach content, vital signs are unremarkable Const Vital Signs: 02/23/21 07:54 Temperature 98.8 F Temperature Source Oral Pulse Rate 83 Respiratory Rate 17 Blood Pressure 142/92 H Blood Pressure Mean 108 Pulse Ox 100 Oxygen Delivery Method Room Air MDM MDM MDM Narrative Medical decision making narrative: Had a long conversation with the mother and the patient and the mother was planning on taking the patient to [facility] today for further management as she was seen in this emergency department late yesterday evening. 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 At this time we will medicate her with morphine subcu Zofran to help control her symptoms and as long as she is otherwise stable the patient will be discharged per their request so they can follow-up at [facility] and there want to be transported via private vehicle, I will let the [facility] emergency department note of her pending arrival Disposition transfer by patient request private vehicle to [facility] Final impression recurrent left flank pain, history of hysterectomy, history of left ureter pathology related to hysterectomy, history of left ureteral stent Discharge Plan Triage Chief Complaint: Nausea/Vomiting ED Provider: Elise Robison Dx/Rx/DC Orders Clinical Impression: Pelvic pain in female, Acute flank pain Instructions: ED Flank Pain, Uncertain Cause Prescriptions: No Action hydrocodone-acetaminophen 1 TABLET tablet 1 tab PO Q6H PRN PRN (Reason: Pain) 3 Days Qty: 10 RF: 0 ondansetron 4 mg tablet,disintegrating 4 mg PO Q8H 4 Days Qty: 12 RF: 0 oxybutynin chloride 10 mg tablet extended release 24hr 10 mg PO DAILY RF: 0 sulfamethoxazole-trimethoprim 800-160 mg tablet 1 tab PO BID RF: 0 Primary Care Provider: Care Physician,No Primary Referrals: Care Physician,No Primary [Primary Care Provider] - Activity Restrictions/Additional Instructions: Go directly to [facility] emergency department via private vehicle for further management today
[2021-02-23] MEDS: morphine 10 MG/ML Syringe SC (08:30)
[2021-02-23] MEDS: Ondansetron ODT 4 MG Tablet 8 MG PO (08:31)
== END 2021-02-23 08:58 | disposition home or self-care (01) ==
LOC: ED 08:25
PROVIDERS: Emergency Provider Emergency Medicine
DX: R10.2 Pelvic and perineal pain (principal); Z85.42 Personal history of malignant neoplasm of other parts of uterus; Z90.710 Acquired absence of both cervix and uterus; Z96.0 Presence of urogenital implants
CPT/HCPCS: 96372; 99284

== ENCOUNTER 2021-05-21 13:31 | Emergency (ER) | payer MEDICAID, SELFPAY ==
[2021-05-21 13:32] VITALS: BP 138/92; PULSE 125; RESP 16; TEMP 37.1; O2SAT 96; BMI 28.9
[2021-05-21 14:13] LABS: Mucous, Urine 0 SEEN /hpf (<or=2+); Red Blood Cells-Urine 0 SEEN /hpf (0-5)
[2021-05-21 14:17] LABS: Color, Urine Yellow (Yellow); Glucose, Dipstick Normal (Normal); Ketone-Dipstick 50 mg/dl (Negative); Leukocyte Esterase-Dipstick 500 /ul (Negative); Nitrite-Dipstick Positive (Negative); Occult Blood-Urine 50 /ul (Negative); Protein-Dipstick 30 mg/dl (Negative); Urine Bilirubin Dipstick Negative (Negative); Urine Clarity Sl. Cloudy (Clear); Urine Urobilinogen Normal (Normal); Urine pH 6.5 (5.0 - 8.0)
[2021-05-21 14:22] LABS: Bacteria 2+ /hpf (None Seen); Squamous Epithelial Cells - UA 0-5 SEEN /hpf (5-10); White Blood Cells >100 SEEN /hpf (0-5)
--- NOTE | 2021-05-21 15:05 | CT_ITS ---
STUDY: CT ABDOMEN AND PELVIS WITHOUT CONTRAST REASON FOR EXAM: Female, 21 years old. Left flank pain. History of total hysterectomy and endometrial cancer. History of polycystic ovarian disease. RADIATION DOSAGE (If Supplied By Facility): CTDIvol = ( 10.17 ) mGy, DLP = ( 551.20 ) mGycm TECHNIQUE: Transaxial images were obtained from the dome of the diaphragm to the symphysis pubis without oral contrast, and without intravenous contrast. Sagittal and coronal images were reconstructed. Individualized dose optimization techniques were used for this CT. COMPARISON: 02/09/2021. FINDINGS: The visualized lung bases are unremarkable. The visualized portions of the heart are within normal limits. Normal liver. Normal gallbladder and extrahepatic biliary system. Normal spleen. Normal pancreas. Normal bilateral adrenal glands. Normal right kidney. Normal right ureter. No apparent abnormal left kidney. There is a ureteral stent extending from the left renal pelvis into the urinary bladder. Normal visualized stomach. Normal small intestine. Normal colon. The appendix is visualized and appears normal. Normal abdominal aorta. Normal inferior vena cava. There are multiple lymph nodes in the left periaortic space at the level of the renal vessels. The largest measures 1.1 x 0.8 x 2.5 cm. The remainder appears subcentimeter in size. There is mild circumferential wall thickening in the poorly distended urinary bladder. There is no mass or filling defect. Unremarkable vaginal cuff. There are ovoid soft tissue masses in the pelvis thought to be retained ovaries. No free air or free fluid is seen within the peritoneal cavity. Umbilical hernia of omental fat. Normal osseous structures. CT/Abdomen/Pelvis without Cont IMPRESSION: 1. Left ureteral stent with resolution of the hydronephrosis seen on the previous study. 2. Resolution the pelvic stranding seen on the prior exam. 3. Stable left periaortic retroperitoneal lymphadenopathy. 4. Otherwise stable findings Electronically Signed: Esequiel Cisneros DO at 17:08 EDT Tel [phone], Service support ,
[2021-05-21 16:05] LABS: Absolute Lymphocyte Count 1.23 X10^3/uL (0.83-4.51); Absolute Neutrophil Count 6.1 X10^3/uL (2.0-7.7); Basophil# 0.02 X10^3/uL; Basophil% 0.3 % (0-1); Eosinophil# 0.02 X10^3/uL; Eosinophils% 0.3 % (0-5); Hematocrit 34.7 % (37-47); Hemoglobin 10.6 g/dL (12.0-15.0); Lymphocyte # 1.23 X10^3/ul (0.83-4.51); Lymphocyte % 15.4 % (19-41); Mean Corp Hgb Conc 30.5 g/dL (32-36); Mean Corpuscular Volume 78.7 fL (81-99); Mean Platelet Vol. 9.5 fl (6.2-12.0); Monocyte# 0.53 X10^3/uL; Monocyte% 6.6 % (0-10); NRBC Flagged by Analyzer 0 % (0-5); Neutrophil # 6.14 X10^3/uL (2.7-7.7); Platelet Count 380 K/mm3 (150-450); RBC Distribution Width CV 13.7 % (11.6-14.6); RBC Distribution Width SD 39.4 fl (35.1-43.9); Red Blood Count 4.41 M/mm3 (4.2-5.4)
--- NOTE | 2021-05-21 16:17 | EDS_ITS ---
HPI History of Present Illness Chief Complaint: Fever Informant: patient Onset/Context/Timing Onset: Weeks (2) Context: Gradual Onset Timing: Continuous Quality: Sharp. Location: Abdomen Worsened by: Movement Relieved by: Resting in position Narrative Narrative: Patient presents with left side pain and fever that has been getting progressively worse over the past 2 weeks. Patient states her pain is sharp. Patient states it is over the left side of her abdomen but also radiates to the right. Patient states her pain is worse with any movement. Patient states it is better whenever she curls up into a ball. Mother states patient's fever at home was up to 104. Patient admits to some dysuria. Patient does have a stent in her left ureter. Patient denies any nausea or vomiting. Patient does admit to a cough and occasional shortness of breath. PFSH [facility] Medical History Endometrial cancer Menorrhagia Non-smoker Ureter injury Home Medications oxybutynin chloride 10 mg PO DAILY 02/22/21 [History Last Taken Unknown] amoxicillin-pot clavulanate 875 mg PO Q12H #20 tablet 05/21/21 [Rx Last Taken Unknown] pantoprazole PO 05/21/21 [History Last Taken Unknown] tamsulosin [Flomax] 0.4 mg PO DAILY 05/21/21 [History Last Taken Unknown] Allergy/AdvReac Type Severity Reaction Status Date / Time promethazine [From Phenergan] Allergy Vomiting Verified 05/21/21 13:35 Surgical History History of hysterectomy for cancer Social History household members: family Smoking Status: Never smoker ROS ROS ED Constitutional Constitutional ED: Denies chills or fever(s) Eyes Eyes: Reports blurry vision; Denies diplopia ENT ENT ED: Reports rhinorrhea; Denies sore throat Cardiovascular Cardiovascular: Denies chest pain or palpitations Respiratory/Chest Respiratory/Chest: Reports cough and dyspnea Gastrointestinal Gastrointestinal: Denies nausea or vomiting Genitourinary Genitourinary ED: Reports dysuria; Denies hematuria Musculoskeletal Musculoskeletal: Reports back pain; Denies neck pain Integumentary Denies abscess or rash Neurologic Neurologic: Denies headache(s) or weakness Allergic/Immunologic Allergic/Immunologic ED: Reports urticaria; Denies mouth swelling EXAM Physical Exam Const Vital Signs: 05/21/21 13:32 05/21/21 16:31 05/21/21 16:34 Temperature 98.8 F Temperature Source Temporal Pulse Rate 125 H Respiratory Rate 16 18 Respiratory Effort Normal Respiratory Pattern Normal Blood Pressure 138/92 H Blood Pressure Mean 107 Pulse Ox 96 Oxygen Delivery Method Room Air Positive well nourished and well developed General Appearance ED: well developed HEENT Reports moist mucous membranes Neck supple and no JVD Resp normal respiratory effort and clear to auscultation bilaterally Cardio regular rhythm and no murmurs Rate: tachycardic GI normal to inspection, nondistended, normoactive bowel sounds Palpation: soft and tender epigastric, LLQ, RLQ, LUQ, RUQ, periumbilical and suprapubic; Negative for guarding or rebound tenderness present Extremity normal to inspection General Extremety ED: Negative for edema or tenderness General Extremity: Negative for edema Neuro oriented x3, CN's II-XII intact bilaterally and no sensory deficits noted Sensorium / Orientation: alert Motor Exam: strength 5/5 throughout Psych mental status grossly normal Skin no rashes or lesions noted MDM MDM MDM Narrative Medical decision making narrative: Patient was given IV fluids and morphine here. CBC shows a mild anemia with a hemoglobin of 10.6 hematocrit of 34.7. Comprehensive metabolic profile was essentially within normal limits. Urinalysis shows leukocyte esterase of 500 with positive nitrites. There were greater than 100 white blood cells and 2+ bacteria. Blood cultures and urine culture were ordered and are pending. COVID-19 rapid antigen was obtained was negative. Patient was given a dose of Rocephin. CT scan of the abdomen pelvis was obtained. The left ureteral stent is in place. There is resolution of the hydronephrosis and pelvic stranding seen on the previous exam. There is no acute intra-abdominal abnormality. This was interpreted by the radiologist and reviewed by myself. Patient was given a prescription for Augmentin. Patient was instructed to follow-up with her primary care physician in 5 to 7 days. Patient was also instructed to follow-up with her urologist. Patient and family understood and were agreeable with the plan. All questions were answered. Lab Data Attestation: I reviewed the patient's lab results. Labs: Laboratory Results - last 24 hr 05/21/21 05/21/21 05/21/21 13:55 15:35 15:35 WBC 8.0 RBC 4.41 Hgb 10.6 L Hct 34.7 L MCV 78.7 L MCH 24.0 L MCHC 30.5 L RDW Std Deviation 39.4 RDW Coeff of Roz 13.7 Plt Count 380 MPV 9.5 Immature Gran % (Auto) 0.400 Neut % (Auto) 77.0 H Lymph % (Auto) 15.4 L Cross % (Auto) 6.6 Eos % (Auto) 0.3 Baso % (Auto) 0.3 Absolute Neuts (auto) 6.1 Absolute Lymphs (auto) 1.23 Nucleated RBC % 0 Sodium 136 Potassium 3.4 L Chloride 103 Carbon Dioxide 25.0 Anion Gap 8 BUN 8 Creatinine 0.88 Estim Creat Clear Calc 105.68 Est GFR (MDRD) Af Amer 104 Est GFR (MDRD) Non-Af 86 BUN/Creatinine Ratio 9.1 L Glucose 85 Lactic Acid Calcium 8.9 Total Bilirubin 0.30 AST 13 L ALT 19 Alkaline Phosphatase 55 Total Protein 9.0 H Albumin 3.2 Globulin 5.8 H Albumin/Globulin Ratio 0.6 L Urine Color Yellow Urine Clarity Sl. Cloudy Urine pH 6.5 Ur Specific [place] 1.010 Urine Protein 30 H Urine Glucose (UA) Normal Urine Ketones 50 H Urine Occult Blood 50 H Urine Nitrite Positive H Urine Bilirubin Negative Urine Urobilinogen Normal Ur Leukocyte Esterase 500 H Urine RBC 0 SEEN Urine WBC >100 SEEN Ur Squamous Epith Cells 0-5 SEEN Urine Bacteria 2+ Urine Mucus 0 SEEN 05/21/21 15:35 WBC RBC Hgb Hct MCV MCH MCHC RDW Std Deviation RDW Coeff of Roz Plt Count MPV Immature Gran % (Auto) Neut % (Auto) Lymph % (Auto) Cross % (Auto) Eos % (Auto) Baso % (Auto) Absolute Neuts (auto) Absolute Lymphs (auto) Nucleated RBC % Sodium Potassium Chloride Carbon Dioxide Anion Gap BUN Creatinine Estim Creat Clear Calc Est GFR (MDRD) Af Amer Est GFR (MDRD) Non-Af BUN/Creatinine Ratio Glucose Lactic Acid 0.8 Calcium Total Bilirubin AST ALT Alkaline Phosphatase Total Protein Albumin Globulin Albumin/Globulin Ratio Urine Color Urine Clarity Urine pH Ur Specific [place] Urine Protein Urine Glucose (UA) Urine Ketones Urine Occult Blood Urine Nitrite Urine Bilirubin Urine Urobilinogen Ur Leukocyte Esterase Urine RBC Urine WBC Ur Squamous Epith Cells Urine Bacteria Urine Mucus Radiography Diagnostic Testing: Radiology Impression Abdomen/Pelvis CT 05/21/21 15:05 IMPRESSION: 1. Left ureteral stent with resolution of the hydronephrosis seen on the previous study. 2. Resolution the pelvic stranding seen on the prior exam. 3. Stable left periaortic retroperitoneal lymphadenopathy. 4. Otherwise stable findings Electronically Signed: Esequiel BlayneDO at 17:08 EDT Tel [phone], Service support , Discharge Plan Triage Chief Complaint: Fever ED Provider: Josué Reinoso Dx/Rx/DC Orders Clinical Impression: UTI (urinary tract infection) Instructions: ED CYSTITIS Female Adult Prescriptions: New amoxicillin-pot clavulanate [amoxicillin-pot clavulanate] 875 MG tablet 875 mg PO Q12H Qty: 20 RF: 0 No Action oxybutynin chloride 10 mg tablet extended release 24hr 10 mg PO DAILY RF: 0 tamsulosin [Flomax] 0.4 mg Capsule 0.4 mg PO DAILY RF: 0 pantoprazole 40 mg tablet,delayed release (DR/EC) PO RF: 0 Referrals: EDWIGE Henry [Other] - 5-7 Days Disposition Disposition: Home, Self Care
[2021-05-21 16:21] LABS: ALB/GLOB Ratio 0.6 RATIO (0.9-2.4); AST(SGOT) 13 U/L (15-37); Alanine Aminotransfer ALT/SGPT 19 U/L (13-56); Albumin, Serum 3.2 g/dL (3.2-5.0); Alkaline Phosphatase 55 U/L (45-117); Anion Gap 8 (5-15); BUN 8 mg/dL (7-18); BUN/Creat Ratio 9.1 RATIO (10-20); Calcium,Total 8.9 mg/dL (8.5-10.1); Chloride 103 mmol/L (98-107); Creatinine, Serum 0.88 mg/dL (0.55-1.02); EST Glomerular Filtration Rate 86 mL/min (>60); Est Glom Filt Rate - Afr Amer 104 mL/min (>60); Estimated Creatinine Clearance 105.68 ml/min; Globulin 5.8 g/dL (2.2-4.2); Glucose 85 mg/dL (74-106); Potassium 3.4 mmol/L (3.5-5.1); Sodium Level 136 mmol/L (136-145)
[2021-05-21] MEDS: Morphine 4 MG/ML Syringe IV ×2 (16:29→18:04)
[2021-05-21] MEDS: 0.9% Normal Saline 1,000 ML 1000 ML IV (16:29)
[2021-05-21] MEDS: Ceftriaxone 1 GM/50 ML BAG IV (16:30)
[2021-05-21 16:31] VITALS: RESP 18
[2021-05-21 16:43] LABS: Lactic Acid 0.8 mmol/L (0.4-1.9)
[2021-05-21] MEDS: DiphenhydrAMINE 50 MG/ML Syringe 25 MG IV (18:04)
== END 2021-05-21 18:16 | disposition home or self-care (01) ==
PROVIDERS: Emergency Provider Emergency Medicine
DX: N39.0 Urinary tract infection, site not specified (principal); R05 Cough; R06.00 Dyspnea, unspecified; Z85.42 Personal history of malignant neoplasm of other parts of uterus
CPT/HCPCS: 74176; 80053; 81001; 83605; 85025; 87040; 87077; 87086; 87088; 87186; 87426; 96365; 96366; 96375; 96376; 99285

== ENCOUNTER 2021-05-27 20:44 | Emergency (ER) | payer MEDICAID, SELFPAY ==
[2021-05-27 20:45] VITALS: BP 101/72; PULSE 110; RESP 18; TEMP 35.9; O2SAT 96; BMI 28.8
[2021-05-27 21:17] LABS: Color, Urine Yellow (Yellow); Glucose, Dipstick Normal (Normal); Leukocyte Esterase-Dipstick 500 /ul (Negative); Nitrite-Dipstick Negative (Negative); Occult Blood-Urine 25 /ul (Negative); Protein-Dipstick 30 mg/dl (Negative); Specific Gravity, Urine 1.015 (1.002-1.030); Urine Bilirubin Dipstick Negative (Negative); Urine Clarity Sl. Cloudy (Clear); Urine Urobilinogen 1 mg/dl (Normal)
[2021-05-27 21:20] LABS: Ketone-Dipstick 150 mg/dl (Negative)
[2021-05-27 21:22] LABS: Bacteria RARE /hpf (None Seen); Mucous, Urine 2+ /hpf (<or=2+); Red Blood Cells-Urine 0-5 SEEN /hpf (0-5); Squamous Epithelial Cells - UA 0-5 SEEN /hpf (5-10); White Blood Cells 25-50 SEEN /hpf (0-5)
[2021-05-27 21:23] LABS: Amorphous Sediment 1+ URATE
--- NOTE | 2021-05-27 22:34 | EKG12_ITS ---
Test Reason : DYSRHYTHMIA Blood Pressure : / mmHG Vent. Rate : 099 BPM Atrial Rate : 099 BPM P-R Int : 140 ms QRS Dur : 086 ms QT Int : 370 ms P-R-T Axes : 059 074 017 degrees QTc Int : 474 ms Normal sinus rhythm Nonspecific T wave abnormality Prolonged QT Abnormal ECG Confirmed by VANNESA MARTINEZ, PREM ([id number]), news editor KISHOR SOUZA ([id number]) on 05/31/2021 9:59:55 AM Referred By: REG Confirmed By:PREM GRANADO MD
--- NOTE | 2021-05-27 22:36 | EX.ED.DYSGE1 ---
HPI History of Present Illness Chief Complaint: Complaint Informant: patient Narrative Narrative: Patient presents with hives and a feeling of lightheadedness when she stands up. This is been going on really since her last visit. It has not gotten better with antibiotics. However she has no urinary symptoms such as frequency urgency or burning. She is not having any flank pain or pelvic pain. She is eating and drinking well and does not have nausea vomiting or diarrhea. There has been some subjective fevers but they have not been changed checked numerically. She did call to get appointment with her surgeon up at [facility] but they are waiting for a time. She tells me she is taking Cipro once a day for the urine infection. However, it is listed as twice a day on her chart. This patient does have a relatively complex recent course. Although she is young, she was diagnosed with uterine cancer. She had surgery back in December for that. It is expected that they got all the cancer. There is no plan for chemotherapy or radiation. During surgery, there was an injury to the ureter. This required a stent. They placed a temporary stent and then they put another one in about 2 months ago. She still has this in place. There is nothing specifically that makes her symptoms better. They tend to get worse at least transiently when she first stands up. She denies a decrease in urine output. She has had this in the past but is not having this at this time. [facility] Medical History Endometrial cancer Menorrhagia Non-smoker Ureter injury Home Medications oxybutynin chloride 10 mg PO DAILY 02/22/21 [History Last Taken Unknown] ciprofloxacin HCl [Cipro] 500 mg PO Q12H #14 tab 05/21/21 [Rx Last Taken Unknown] pantoprazole PO 05/21/21 [History Last Taken Unknown] tamsulosin [Flomax] 0.4 mg PO DAILY 05/21/21 [History Last Taken Unknown] hydroxyzine pamoate [Vistaril] 25 mg PO Q6H PRN #20 cap 05/28/21 [Rx Last Taken Unknown] Allergy/AdvReac Type Severity Reaction Status Date / Time ceftriaxone [From Rocephin] Allergy Hives Verified 05/27/21 22:51 promethazine [From Phenergan] Allergy Vomiting Verified 05/27/21 22:51 Surgical History History of hysterectomy for cancer Social History household members: family Smoking Status: Never smoker ROS ROS ED Constitutional Constitutional ED: Reports subjective Eyes Eyes: Denies blurry vision or change in vision ENT ENT ED: Denies ear pain Cardiovascular Cardiovascular: Denies chest pain or palpitations Respiratory/Chest Respiratory/Chest: Reports other Details: Patient reports that she did have a slight cough a week or so ago but is completely gone. She has no pulmonary symptoms now. ; Denies cough, dyspnea on exertion or sputum Gastrointestinal Gastrointestinal: Reports other Details: Occasionally she does get epigastric area abdominal discomfort. But nothing in the lower abdomen or pelvis. No flank pain. ; Denies nausea or vomiting Genitourinary Genitourinary ED: Denies dysuria, hematuria or urinary frequency Musculoskeletal Musculoskeletal: Denies arthralgias or back pain Integumentary Denies rash Neurologic Neurologic: Denies paresthesias or weakness Endocrine Endocrinology: Denies polydipsia or polyuria Allergic/Immunologic Allergic/Immunologic ED: Denies mouth swelling or urticaria EXAM Physical Exam Const Vital Signs: 05/27/21 20:45 05/27/21 22:51 05/27/21 23:26 Temperature 96.7 F L 96.7 F L 96.7 F L Temperature Source Temporal Temporal Temporal Pulse Rate 110 H 110 H 110 H Respiratory Rate 18 18 18 Blood Pressure 101/72 101/72 101/72 Blood Pressure Mean 81 81 81 Pulse Ox 96 96 96 Oxygen Delivery Method Room Air Room Air Room Air 05/28/21 00:00 05/28/21 01:00 05/28/21 02:09 Temperature 96.7 F L 96.7 F L 98.1 F Temperature Source Temporal Temporal Temporal Pulse Rate 110 H 110 H 73 Respiratory Rate 18 18 16 Blood Pressure 101/72 101/72 125/86 H Blood Pressure Mean 81 81 99 Pulse Ox 96 96 99 Oxygen Delivery Method Room Air Room Air Room Air Positive well nourished and well developed General Appearance ED: well developed and NAD HEENT Reports dry mucous membranes Mouth ED: Yes dry mucous membranes Mouth: dry mucous membranes Eyes General Eye ED: Negative for pale conjunctiva or scleral icterus Neck no JVD Chest Wall inspection of chest normal Resp normal respiratory effort and clear to auscultation bilaterally Effort and Inspection: Negative for pain with movement Auscultation: Negative for rales, rhonchi or wheezes Cardio regular rate and regular rhythm GI normal to inspection, nondistended, normoactive bowel sounds, non-tender and non-distended Palpation: soft Back/Spine no CVA tenderness Extremity normal to inspection General Extremety ED: Negative for tenderness Neuro oriented x3 Psych mental status grossly normal Skin Skin Narrative: She does have some blanching slightly erythematous patches scattered throughout her body. They're not significantly raised. They are pruritic. No vesicles. MDM MDM MDM Narrative Medical decision making narrative: Patient symptoms have been going on since her prior visit. However, while she is here she seems to be having more and more abdominal pain. With her complex course, cancer, recent surgery I will repeat a CAT scan at this time with her worsening symptoms. Blood work shows improving hemoglobin. Her white count is normal. Electrolytes are unremarkable. Urine does show some signs of a urine infection but is overall better. I have verified with the patient that she is taking Cipro once a day. She states it is prescribed 12 hours. She states she goes to bed early so she is not up 12 hours after she takes it. I explained that when the medicines prescribed every 12 hours it should be taken twice in a day not once. I think this might be contributing to her symptoms. I would prefer not to change antibiotics again. She will double up on her dose of Cipro to the prescribed dose. She also is not having nausea and vomiting now but states she has had significant problems with this that are thought to be related to intolerance of the stent. She is also been having hives prior to the start of all antibiotics. I will write her some Vistaril. I will give her some Benadryl here. She is going to follow-up with her urologist. CT shows no sign of problems with her surgery. No indication of stent dysfunction. There is some mild nonspecific colitis. Yet she is not having diarrhea. I think she is safe for discharge and follow-up. Lab Data Attestation: I reviewed the patient's lab results. Labs: Laboratory Results - last 24 hr 05/27/21 05/27/21 05/27/21 21:02 22:12 22:12 WBC 8.3 RBC 4.66 Hgb 11.2 L Hct 36.3 L MCV 77.9 L MCH 24.0 L MCHC 30.9 L RDW Std Deviation 40.3 RDW Coeff of Roz 14.5 Plt Count 391 MPV 10.0 Immature Gran % (Auto) 0.400 Neut % (Auto) 80.3 H Lymph % (Auto) 15.3 L [place] % (Auto) 3.4 Eos % (Auto) 0.5 Baso % (Auto) 0.1 Absolute Neuts (auto) 6.7 Absolute Lymphs (auto) 1.27 Nucleated RBC % 0 Sodium 138 Potassium 4.0 Chloride 105 Carbon Dioxide 27.0 Anion Gap 6 BUN 6 L Creatinine 0.68 Estim Creat Clear Calc 136.77 Est GFR (MDRD) Af Amer 141 Est GFR (MDRD) Non-Af 116 BUN/Creatinine Ratio 8.8 L Glucose 85 Calcium 9.3 Urine Color Yellow Urine Clarity Sl. Cloudy Urine pH 6.0 Ur Specific [place] 1.015 Urine Protein 30 H Urine Glucose (UA) Normal Urine Ketones 150 A* Urine Occult Blood 25 H Urine Nitrite Negative Urine Bilirubin Negative Urine Urobilinogen 1 H Ur Leukocyte Esterase 500 H Urine RBC 0-5 SEEN Urine WBC 25-50 SEEN Ur Squamous Epith Cells 0-5 SEEN Amorphous Sediment 1+ URATE Urine Bacteria RARE Urine Mucus 2+ Radiography Diagnostic Testing: Radiology Impression Abdomen/Pelvis CT 05/27/21 23:45 IMPRESSION: Findings suggestive of nonspecific enterocolitis. Cannot exclude inflammatory bowel disease, clinical correlation recommended. Left-sided ureteral stent in place, unremarkable. No distinct hydronephrosis seen. Electronically Signed: Mere Snell MD at 0:28 EDT , Service support , EKG Initial EKG: Comments: EKG done for generalized lightheadedness read by me showed sinus rhythm with rate of 99. No ectopy. No ST elevation or depression. OK interval, QRS duration and QTc are within normal. Discharge Plan Triage Chief Complaint: Complaint ED Provider: Hakeem Silva Dx/Rx/DC Orders Clinical Impression: Hives, General ill feeling Instructions: ED Hives (Adult) Prescriptions: New hydroxyzine pamoate [Vistaril] 25 mg capsule 25 mg PO Q6H PRN (Reason: itching) Qty: 20 RF: 0 No Action oxybutynin chloride 10 mg tablet extended release 24hr 10 mg PO DAILY RF: 0 tamsulosin [Flomax] 0.4 mg Capsule 0.4 mg PO DAILY RF: 0 pantoprazole 40 mg tablet,delayed release (DR/EC) PO RF: 0 ciprofloxacin HCl [Cipro] 500 mg tablet 500 mg PO Q12H Qty: 14 RF: 0 Referrals: [facility] [Other] Activity Restrictions/Additional Instructions: Follow-up with your urologist and surgeon as soon as possible. Disposition Disposition: Home, Self Care Discharge Date/Time: 05/28/21 03:16
[2021-05-27] MEDS: DiphenhydrAMINE 50 MG/ML Syringe 25 MG IV (22:49)
[2021-05-27] MEDS: 0.9% Normal Saline 1,000 ML 1000 ML IV (22:49)
[2021-05-27 22:51] VITALS: BP 101/72; PULSE 110; RESP 18; TEMP 35.9; O2SAT 96
[2021-05-27 23:08] LABS: Absolute Lymphocyte Count 1.27 X10^3/uL (0.83-4.51); Absolute Neutrophil Count 6.7 X10^3/uL (2.0-7.7); Basophil# 0.01 X10^3/uL; Basophil% 0.1 % (0-1); Eosinophil# 0.04 X10^3/uL; Eosinophils% 0.5 % (0-5); Hematocrit 36.3 % (37-47); Hemoglobin 11.2 g/dL (12.0-15.0); Lymphocyte # 1.27 X10^3/ul (0.83-4.51); Lymphocyte % 15.3 % (19-41); Mean Corp Hgb Conc 30.9 g/dL (32-36); Mean Corpuscular Volume 77.9 fL (81-99); Monocyte# 0.28 X10^3/uL; Monocyte% 3.4 % (0-10); NRBC Flagged by Analyzer 0 % (0-5); Neutrophil # 6.68 X10^3/uL (2.7-7.7); Neutrophil % 80.3 % (47-70); Platelet Count 391 K/mm3 (150-450); RBC Distribution Width CV 14.5 % (11.6-14.6); RBC Distribution Width SD 40.3 fl (35.1-43.9); Red Blood Count 4.66 M/mm3 (4.2-5.4); White Blood Count 8.3 K/mm3 (4.4-11.0)
[2021-05-27 23:22] LABS: Anion Gap 6 (5-15); BUN 6 mg/dL (7-18); BUN/Creat Ratio 8.8 RATIO (10-20); Calcium,Total 9.3 mg/dL (8.5-10.1); Chloride 105 mmol/L (98-107); Creatinine, Serum 0.68 mg/dL (0.55-1.02); EST Glomerular Filtration Rate 116 mL/min (>60); Est Glom Filt Rate - Afr Amer 141 mL/min (>60); Estimated Creatinine Clearance 136.77 ml/min; Glucose 85 mg/dL (74-106); Sodium Level 138 mmol/L (136-145)
[2021-05-27 23:26] VITALS: BP 101/72; PULSE 110; RESP 18; TEMP 35.9; O2SAT 96
--- NOTE | 2021-05-27 23:45 | CT_ITS ---
STUDY: CT ABDOMEN AND PELVIS WITH CONTRAST REASON FOR EXAM: Female, 21 years old. abd pain RADIATION DOSAGE (If Supplied By Facility): CTDIvol = ( 13.69 ) mGy, DLP = ( 975.57 ) mGycm TECHNIQUE: Transaxial images were obtained from the dome of the diaphragm to the symphysis pubis without oral contrast. IV 100mL Isovue-370 was administered. Sagittal and coronal images were reconstructed. Individualized dose optimization techniques were used for this CT. COMPARISON: 05/21/2021. FINDINGS: Bilateral lower lobe groundglass opacities concerning for bilateral multifocal lower lobe pneumonia. The visualized portions of the heart are within normal limits. Normal liver. Normal gallbladder and extrahepatic biliary system. Normal spleen. Normal pancreas. Normal bilateral adrenal glands. Normal right kidney. There is a left-sided ureteral stent in place. Left kidney. Normal visualized stomach. Multiple loops of small bowel with thickening of the wall as seen on images 77 through 93. Mild thickening of the villasenor of the ascending and distal sigmoid: Raising the concern for enterocolitis. The appendix is visualized and appears normal. Normal abdominal aorta. Normal inferior vena cava. Normal retroperitoneum. The urinary bladder is decompressed. Normal abdominal wall. Normal osseous structures. CT/Abdomen/Pelvis W IV Cont ONLY IMPRESSION: Findings suggestive of nonspecific enterocolitis. Cannot exclude inflammatory bowel disease, clinical correlation recommended. Left-sided ureteral stent in place, unremarkable. No distinct hydronephrosis seen. Electronically Signed: Mere Snell MD at 0:28 EDT , Service support ,
[2021-05-27] MEDS: Morphine 4 MG/ML Syringe IV (23:54)
[2021-05-28] VITALS: BP 101/72; PULSE 110; RESP 16; RESP 18; TEMP 35.9; O2SAT 96
[2021-05-28 01:00] VITALS: BP 101/72; PULSE 110; RESP 18; TEMP 35.9; O2SAT 96
[2021-05-28 02:09] VITALS: BP 125/86; PULSE 73; RESP 16; TEMP 36.7; O2SAT 99
[2021-05-28] MEDS: DiphenhydrAMINE 50 MG/ML Syringe 25 MG IV (03:15)
== END 2021-05-28 03:16 | disposition home or self-care (01) ==
PROVIDERS: Emergency Provider Emergency Medicine
DX: L50.9 Urticaria, unspecified (principal); N39.0 Urinary tract infection, site not specified; Z91.14 Patient's other noncompliance with medication regimen; Z85.42 Personal history of malignant neoplasm of other parts of uterus; Z79.2 Long term (current) use of antibiotics
CPT/HCPCS: 74177; 80048; 81001; 85025; 87086; 87088; 87426; 93005; 96361; 96374; 96375; 96376; 99283; J7030; Q9967; A4216

== ENCOUNTER 2021-07-08 04:34 | Emergency (ER) | payer MEDICAID, SELFPAY ==
[2021-07-08 04:37] VITALS: BP 156/108; PULSE 93; RESP 22; TEMP 36.9; O2SAT 99; BMI 27.8
[2021-07-08 05:17] LABS: Absolute Lymphocyte Count 1.52 X10^3/uL (0.83-4.51); Absolute Neutrophil Count 5.6 X10^3/uL (2.0-7.7); Basophil# 0.02 X10^3/uL; Basophil% 0.3 % (0-1); Eosinophils% 1.3 % (0-5); Hematocrit 34.7 % (37-47); Hemoglobin 10.6 g/dL (12.0-15.0); Lymphocyte # 1.52 X10^3/ul (0.83-4.51); Lymphocyte % 19.7 % (19-41); Mean Corp Hgb Conc 30.5 g/dL (32-36); Mean Corpuscular Hgb 23.9 pg (27.0-32.0); Mean Corpuscular Volume 78.3 fL (81-99); Mean Platelet Vol. 8.8 fl (6.2-12.0); Monocyte# 0.42 X10^3/uL; Monocyte% 5.4 % (0-10); NRBC Flagged by Analyzer 0 % (0-5); Neutrophil # 5.64 X10^3/uL (2.7-7.7); Neutrophil % 72.9 % (47-70); Platelet Count 391 K/mm3 (150-450); RBC Distribution Width CV 17.8 % (11.6-14.6); Red Blood Count 4.43 M/mm3 (4.2-5.4); White Blood Count 7.7 K/mm3 (4.4-11.0)
[2021-07-08 05:31] LABS: Anion Gap 8 (5-15); BUN 5 mg/dL (7-18); BUN/Creat Ratio 6.8 RATIO (10-20); Calcium,Total 9.4 mg/dL (8.5-10.1); Chloride 105 mmol/L (98-107); Creatinine, Serum 0.73 mg/dL (0.55-1.02); EST Glomerular Filtration Rate 106 mL/min (>60); Est Glom Filt Rate - Afr Amer 129 mL/min (>60); Glucose 106 mg/dL (74-106); Potassium 3.6 mmol/L (3.5-5.1); Sodium Level 140 mmol/L (136-145)
--- NOTE | 2021-07-08 05:46 | CT_ITS ---
STUDY: CT ABDOMEN AND PELVIS WITH CONTRAST REASON FOR EXAM: Female, 21 years old. Abdominal pain -- IV PO Contrast. One-week history of vomiting. Prior total hysterectomy. RADIATION DOSAGE (If Supplied By Facility): CTDIvol = ( 9.47 ) mGy, DLP = ( 561.37 ) mGycm TECHNIQUE: Transaxial images were obtained from the dome of the diaphragm to the symphysis pubis without oral contrast. IV 100ML ISOVUE 300 was administered. Sagittal and coronal images were reconstructed. Individualized dose optimization techniques were used for this CT. COMPARISON: Comparison is made with prior study dated 05/27/2021. FINDINGS: The visualized lung bases are unremarkable. The visualized portions of the heart are within normal limits. Normal liver. Normal gallbladder and extrahepatic biliary system. Normal spleen. Normal pancreas. Normal bilateral adrenal glands. Normal right kidney. A left-sided double-J stent catheter is in situ. Minimal left hydronephrosis is seen. Normal visualized stomach. Normal small intestine. Normal colon. The appendix is visualized and appears normal. Normal abdominal aorta. Normal inferior vena cava. Normal retroperitoneum. Normal urinary bladder. There is absence of the uterus consistent with a prior hysterectomy. A small amount of free fluid is seen in the cul-de-sac. Normal abdominal wall. Mild dextroscoliosis. CT/Abdomen/Pelvis WITH Contrast IMPRESSION: A left-sided double-J stent catheter is seen and is unchanged. Minimal left hydronephrosis. Small amount of free fluid is seen in the cul-de-sac. Electronically Signed: Pardeep Wetzel MD at 9:08 EDT , Service support ,
[2021-07-08] MEDS: 0.9% Normal Saline 1,000 ML 1000 ML IV (05:51)
[2021-07-08] MEDS: Ondansetron 4 MG/2 ML Vial IV ×2 (05:52→07:18)
--- NOTE | 2021-07-08 06:05 | ED.VIS.GI ---
HPI HPI - GI History of Present Illness Chief Complaint: Abd Pain Informant: patient Abdominal Pain/Flank Pain Onset: Yesterday Context: Gradual Onset Timing: Continuous Quality: Sharp Location: LUQ, LLQ and Left Flank Current Severity: Severe Maximum Severity: Severe Worsened by: Nothing Relieved by: Nothing Nausea/Vomiting/Emesis GI Symptom: Positive for Nausea and Vomiting Diarrhea/Melena/Hematochezia GI Symptom: Negative for Diarrhea, Melena and Hematochezia Associated Symptoms Associated Symptoms: Positive for Dysuria; Negative for Frequency and Hematuria Narrative Narrative: Patient presents with abdominal pain, nausea, and vomiting that began yesterday. Patient states it has gradually gotten worse. Patient states her pain is sharp. Patient states her pain is over the left side of her abdomen and left flank. Patient states nothing makes it better nothing makes it worse. Patient admits to some dysuria but denies any hematuria. Patient denies any melena or hematochezia. Patient denies any hematemesis or coffee-ground emesis. Patient has a history of uterine cancer. Patient had a hysterectomy and had complications during the hysterectomy where they nicked her left ureter. Patient had a stent placed after that. [facility] Medical History Endometrial cancer Menorrhagia Non-smoker Ureter injury Home Medications oxybutynin chloride 10 mg PO DAILY 02/22/21 [History Last Taken Unknown] ciprofloxacin HCl [Cipro] 500 mg PO Q12H #14 tab 05/21/21 [Rx Last Taken Unknown] pantoprazole PO 05/21/21 [History Last Taken Unknown] tamsulosin [Flomax] 0.4 mg PO DAILY 05/21/21 [History Last Taken Unknown] hydroxyzine pamoate [Vistaril] 25 mg PO Q6H PRN #20 cap 05/28/21 [Rx Last Taken Unknown] Allergy/AdvReac Type Severity Reaction Status Date / Time ceftriaxone [From Rocephin] Allergy Hives Verified 05/27/21 22:51 promethazine [From Phenergan] Allergy Vomiting Verified 05/27/21 22:51 Surgical History History of hysterectomy for cancer Social History household members: family Smoking Status: Never smoker ROS ROS ED Constitutional Constitutional ED: Denies chills or fever(s) Eyes Eyes: Denies blurry vision or change in vision ENT ENT ED: Denies rhinorrhea or sore throat Cardiovascular Cardiovascular: Denies chest pain or palpitations Respiratory/Chest Respiratory/Chest: Denies cough or dyspnea Gastrointestinal Gastrointestinal: Reports abdominal pain, nausea and vomiting; Denies diarrhea or melena Genitourinary Genitourinary ED: Reports dysuria; Denies hematuria Musculoskeletal Musculoskeletal: Denies back pain or neck pain Integumentary Denies abscess or rash Neurologic Neurologic: Denies headache(s) or weakness Allergic/Immunologic Allergic/Immunologic ED: Reports urticaria; Denies mouth swelling EXAM Physical Exam Const Vital Signs: 07/08/21 04:37 Temperature 98.5 F Temperature Source Temporal Pulse Rate 93 Respiratory Rate 22 H Blood Pressure 156/108 H Blood Pressure Mean 124 Pulse Ox 99 Oxygen Delivery Method Room Air Positive well nourished and well developed General Appearance ED: well developed HEENT Reports moist mucous membranes Neck supple and no JVD Resp normal respiratory effort and clear to auscultation bilaterally Cardio regular rate, regular rhythm and no murmurs GI normal to inspection, nondistended, normoactive bowel sounds Palpation: soft and tender LLQ and LUQ; Negative for guarding or rebound tenderness present Back/Spine General Back: CVA tenderness left Extremity normal to inspection General Extremety ED: Negative for edema or tenderness General Extremity: Negative for edema Neuro oriented x3, CN's II-XII intact bilaterally and no sensory deficits noted Sensorium / Orientation: alert Motor Exam: strength 5/5 throughout Psych mental status grossly normal Skin no rashes or lesions noted MDM MDM MDM Narrative Medical decision making narrative: Patient was given IV fluids, morphine, and Zofran. Patient was given repeat dose of morphine and Zofran. CBC shows normal white blood cell count. Hemoglobin was 10.6 hematocrit 34.7. Comprehensive metabolic profile was essentially within normal limits. Urinalysis was ordered and is pending. CT scan of the abdomen pelvis was ordered and is pending. Care of the patient was turned over to the oncoming physician pending CT results and urinalysis results. Lab Data Attestation: I reviewed the patient's lab results. Labs: Laboratory Results - last 24 hr 11/09/2707/08/21 07/08/21 05:10 05:10 05:10 WBC 7.7 RBC 4.43 Hgb 10.6 L Hct 34.7 L MCV 78.3 L MCH 23.9 L MCHC 30.5 L RDW Std Deviation 51.0 H RDW Coeff of Roz 17.8 H Plt Count 391 MPV 8.8 Immature Gran % (Auto) 0.400 Neut % (Auto) 72.9 H Lymph % (Auto) 19.7 [place] % (Auto) 5.4 Eos % (Auto) 1.3 Baso % (Auto) 0.3 Absolute Neuts (auto) 5.6 Absolute Lymphs (auto) 1.52 Nucleated RBC % 0 Sodium 140 Potassium 3.6 Chloride 105 Carbon Dioxide 27.0 Anion Gap 8 BUN 5 L Creatinine 0.73 Estim Creat Clear Calc 127.40 Est GFR (MDRD) Af Amer 129 Est GFR (MDRD) Non-Af 106 BUN/Creatinine Ratio 6.8 L Glucose 106 Calcium 9.4 Total Bilirubin 0.20 Direct Bilirubin 0.06 AST 19 ALT 34 Alkaline Phosphatase 70 Total Protein 8.5 H Albumin 3.6 Globulin 4.9 H Discharge Plan Triage Chief Complaint: Abd Pain ED Provider: Josué Reinoso Dx/Rx/DC Orders Clinical Impression: Abdominal pain Prescriptions: No Action oxybutynin chloride 10 mg tablet extended release 24hr 10 mg PO DAILY RF: 0 tamsulosin [Flomax] 0.4 mg Capsule 0.4 mg PO DAILY RF: 0 pantoprazole 40 mg tablet,delayed release (DR/EC) PO RF: 0 ciprofloxacin HCl [Cipro] 500 mg tablet 500 mg PO Q12H Qty: 14 RF: 0 hydroxyzine pamoate [Vistaril] 25 mg capsule 25 mg PO Q6H PRN (Reason: itching) Qty: 20 RF: 0 Referrals: [facility] [Other]
[2021-07-08 06:07] LABS: AST(SGOT) 19 U/L (15-37); Alanine Aminotransfer ALT/SGPT 34 U/L (13-56); Albumin, Serum 3.6 g/dL (3.2-5.0); Alkaline Phosphatase 70 U/L (45-117); Bilirubin, Direct 0.06 mg/dL (0.00-0.30); Globulin 4.9 g/dL (2.2-4.2); Protein, Total 8.5 g/dL (6.4-8.2)
[2021-07-08] MEDS: Morphine 4 MG/ML Syringe IV ×2 (07:18→10:01)
[2021-07-08] MEDS: Metoclopramide 10 MG/2 ML Vial IV (10:01)
[2021-07-08 10:40] LABS: Mucous, Urine 0 SEEN /hpf (<or=2+)
[2021-07-08 11:04] LABS: Color, Urine Yellow (Yellow); Glucose, Dipstick Normal (Normal); Ketone-Dipstick Negative (Negative); Leukocyte Esterase-Dipstick 100 /ul (Negative); Nitrite-Dipstick Positive (Negative); Occult Blood-Urine 150 /ul (Negative); Protein-Dipstick 15 mg/dl (Negative); Specific Gravity, Urine 1.015 (1.002-1.030); Urine Bilirubin Dipstick Negative (Negative); Urine Clarity Clear (Clear); Urine Urobilinogen 1 mg/dl (Normal)
[2021-07-08 11:10] VITALS: PULSE 78; RESP 18; O2SAT 97
[2021-07-08 11:16] LABS: Red Blood Cells-Urine 5-10 SEEN /hpf (0-5); White Blood Cells 5-10 SEEN /hpf (0-5)
[2021-07-08 11:17] LABS: Bacteria 1+ /hpf (None Seen); Squamous Epithelial Cells - UA 5-10 SEEN /hpf (5-10)
[2021-07-08] MEDS: Smz/Tmp Ds Tablet 1 TABLET PO (11:56)
[2021-07-08 11:59] VITALS: PULSE 72; RESP 16; O2SAT 98
== END 2021-07-08 11:59 | disposition home or self-care (01) ==
PROVIDERS: Emergency Provider Emergency Medicine
DX: R10.9 Unspecified abdominal pain (principal); R11.2 Nausea with vomiting, unspecified; R30.0 Dysuria; Z85.42 Personal history of malignant neoplasm of other parts of uterus
CPT/HCPCS: 74177; 80048; 80076; 81001; 85025; 87077; 87086; 87088; 87186; 96361; 96374; 96375; 96376; 99285; J7030; Q9967; A4216; J2405

== ENCOUNTER 2021-07-09 13:28 | Inpatient (IN) | payer MEDICAID, SELFPAY ==
[2021-07-09 13:29] VITALS: BP 145/99; PULSE 112; RESP 20; TEMP 35.9; O2SAT 98; BMI 27.8
--- NOTE | 2021-07-09 14:09 | EDS_ITS ---
HPI History of Present Illness Chief Complaint: Nausea/Vomiting Informant: patient and spouse/S.O. Narrative Narrative: This patient presents with nausea vomiting left flank pain. She was here yesterday for same. She was diagnosed with UTI and suspected [place] started on antibiotics. She is not able to keep these down. Patient has a history of having a total hysterectomy in December due to endometrial cancer. At that time she had a ureteral injury that has required a stent. She still has the stent in place. She has been trying to follow-up but she states every time she tries to follow-up her appointments get canceled on her. Therefore she has not seen her [employer] or urologist for some time. She has had about 2 to 3 days of dysuria frequency and increasing left flank pain. She has Zofran at home but it has not helped. She is on sulfa. I also reviewed her records from yesterday. Her urine is actually already showing staph species growing. Nothing is making her symptoms specifically better or worse. PFSH PFS Medical History Endometrial cancer Menorrhagia Non-smoker Ureter injury Home Medications oxybutynin chloride 10 mg PO DAILY 02/22/21 [History Last Taken Unknown] ciprofloxacin HCl [Cipro] 500 mg PO Q12H #14 tab 05/21/21 [Rx Last Taken Unknown] pantoprazole PO 05/21/21 [History Last Taken Unknown] tamsulosin [Flomax] 0.4 mg PO DAILY 05/21/21 [History Last Taken Unknown] hydroxyzine pamoate [Vistaril] 25 mg PO Q6H PRN #20 cap 05/28/21 [Rx Last Taken Unknown] sulfamethoxazole-trimethoprim [Bactrim DS] 1 tab PO BID #14 tab 07/08/21 [Rx Last Taken Unknown] Allergy/AdvReac Type Severity Reaction Status Date / Time ceftriaxone [From Rocephin] Allergy Hives Verified 07/09/21 13:31 promethazine [From Phenergan] Allergy Vomiting Verified 07/09/21 13:31 Surgical History History of hysterectomy for cancer Social History household members: family Smoking Status: Never smoker ROS ROS ED Constitutional Constitutional ED: Reports subjective Eyes Eyes: Denies blurry vision ENT ENT ED: Denies rhinorrhea or sore throat Cardiovascular Cardiovascular: Denies chest pain or palpitations Respiratory/Chest Respiratory/Chest: Denies cough, dyspnea or sputum Gastrointestinal Gastrointestinal: Reports abdominal pain, nausea and vomiting; Denies c onstipation, diarrhea or melena Genitourinary Genitourinary ED: Reports dysuria and urinary frequency; Denies hematuria Musculoskeletal Musculoskeletal: Reports back pain Integumentary Denies rash Neurologic Neurologic: Denies headache(s) or weakness Psychiatric Psychiatric: Reports depression Endocrine Endocrinology: Denies polydipsia or polyuria Allergic/Immunologic Allergic/Immunologic ED: Denies urticaria EXAM Physical Exam Const Vital Signs: 07/09/21 13:29 07/09/21 15:29 Temperature 96.6 F L Temperature Source Temporal Pulse Rate 112 H Respiratory Rate 20 H 14 Blood Pressure 145/99 H Blood Pressure Mean 114 Pulse Ox 98 Oxygen Delivery Method Room Air Patient looks weak and tired. She is actively retching into a bag. She is bringing up a small amount of clear liquid. No blood. Positive well nourished and well developed General Appearance ED: well developed HEENT Reports dry mucous membranes Mouth ED: Yes dry mucous membranes Mouth: dry mucous membranes Eyes General Eye ED: Negative for pale conjunctiva or scleral icterus Neck no JVD Resp normal respiratory effort and clear to auscultation bilaterally Auscultation: Negative for rales, rhonchi or wheezes Cardio regular rhythm Rate: tachycardic GI normal to inspection, nondistended, normoactive bowel sounds and non-tender GI Narrative: Patient has minimal soreness over near her left lower quadrant but it is a little bit more lateral flank tenderness. Palpation: soft Back/Spine General Back: CVA tenderness Extremity normal to inspection Neuro Sensorium / Orientation: alert; Negative for lethargic or stuporous Psych mental status grossly normal Skin no rashes or lesions noted MDM MDM MDM Narrative Medical decision making narrative: Patient's blood work shows normal white count. BUN and creatinine are okay lactate is okay. However, her culture from yesterday is already showing staph. I did give her vancomycin. She is given IV fluids. I have given her 2 doses of Zofran and Dilaudid. I went to check her again. She actively is vomiting liquid. She has likely 200 cc of liquid in the emesis bag. There is no blood. I will try adding Reglan Benadryl. I think with her recurrent vomiting, positive urine culture already she will need to come in the hospital. I believe she is failed good outpatient care care and therapy. I also talked with her about any drug use or marijuana use and she does not use any at all. Lab Data Attestation: I reviewed the patient's lab results. Labs: Laboratory Results - last 24 hr 07/09/21 07/09/21 07/09/21 14:39 14:39 14:39 WBC 8.8 RBC 4.89 Hgb 11.6 L Hct 38.2 MCV 78.1 L MCH 23.7 L MCHC 30.4 L RDW Std Deviation 50.3 H RDW Coeff of Roz 17.6 H Plt Count 391 MPV 8.8 Immature Gran % (Auto) 0.300 Neut % (Auto) 84.7 H Lymph % (Auto) 11.4 L [place] % (Auto) 2.2 Eos % (Auto) 1.1 Baso % (Auto) 0.3 Absolute Neuts (auto) 7.4 Absolute Lymphs (auto) 1.00 Nucleated RBC % 0 Differential Comment SCANNED Platelet Estimate ADEQUATE Sodium 139 Potassium 3.8 Chloride 103 Carbon Dioxide 28.0 Anion Gap 8 BUN 6 L Creatinine 0.85 Estim Creat Clear Calc 109.41 Est GFR (MDRD) Af Amer 109 Est GFR (MDRD) Non-Af 90 BUN/Creatinine Ratio 7.1 L Glucose 94 Lactic Acid 1.2 Calcium 9.3 Total Bilirubin 0.30 AST 23 ALT 32 Alkaline Phosphatase 69 Total Protein 8.4 H Albumin 3.6 Globulin 4.8 H Albumin/Globulin Ratio 0.8 L Discharge Plan Dx/Rx/DC Orders Clinical Impression: Pyelonephritis of left kidney, Intractable nausea and vomiting Disposition Disposition: Acute Care [facility]
[2021-07-09] MEDS: Ondansetron 4 MG/2 ML Vial IV ×2 (14:37→16:54)
[2021-07-09 14:58] LABS: Absolute Neutrophil Count 7.4 X10^3/uL (2.0-7.7); Basophil# 0.03 X10^3/uL; Basophil% 0.3 % (0-1); Eosinophils% 1.1 % (0-5); Hematocrit 38.2 % (37-47); Hemoglobin 11.6 g/dL (12.0-15.0); Lymphocyte % 11.4 % (19-41); Mean Corp Hgb Conc 30.4 g/dL (32-36); Mean Corpuscular Hgb 23.7 pg (27.0-32.0); Mean Corpuscular Volume 78.1 fL (81-99); Mean Platelet Vol. 8.8 fl (6.2-12.0); Monocyte# 0.19 X10^3/uL; Monocyte% 2.2 % (0-10); NRBC Flagged by Analyzer 0 % (0-5); Neutrophil # 7.41 X10^3/uL (2.7-7.7); Neutrophil % 84.7 % (47-70); POSITIVE COUNT YES; Platelet Count 391 K/mm3 (150-450); RBC Distribution Width CV 17.6 % (11.6-14.6); RBC Distribution Width SD 50.3 fl (35.1-43.9); Red Blood Count 4.89 M/mm3 (4.2-5.4); White Blood Count 8.8 K/mm3 (4.4-11.0)
[2021-07-09 15:01] LABS: Differential Indicated SCAN CRITERIA MET
[2021-07-09 15:19] LABS: ALB/GLOB Ratio 0.8 RATIO (0.9-2.4); AST(SGOT) 23 U/L (15-37); Alanine Aminotransfer ALT/SGPT 32 U/L (13-56); Albumin, Serum 3.6 g/dL (3.2-5.0); Alkaline Phosphatase 69 U/L (45-117); Anion Gap 8 (5-15); BUN 6 mg/dL (7-18); BUN/Creat Ratio 7.1 RATIO (10-20); Calcium,Total 9.3 mg/dL (8.5-10.1); Chloride 103 mmol/L (98-107); Creatinine, Serum 0.85 mg/dL (0.55-1.02); EST Glomerular Filtration Rate 90 mL/min (>60); Est Glom Filt Rate - Afr Amer 109 mL/min (>60); Estimated Creatinine Clearance 109.41 ml/min; Globulin 4.8 g/dL (2.2-4.2); Glucose 94 mg/dL (74-106); Lactic Acid 1.2 mmol/L (0.4-1.9); Potassium 3.8 mmol/L (3.5-5.1); Protein, Total 8.4 g/dL (6.4-8.2); Sodium Level 139 mmol/L (136-145)
[2021-07-09 15:29] VITALS: RESP 14
--- NOTE | 2021-07-09 15:34 | ED.RN ---
delay in medicating, pt is a difficult iv access.
[2021-07-09] MEDS: HYDROmorphone 1 MG/ML Syringe 0.5 MG IV (15:45)
[2021-07-09 15:51] LABS: Differential Comment SCANNED; Platelet Estimate ADEQUATE (ADEQ)
[2021-07-09] MEDS: 0.9% Normal Saline 1,000 ML 1000 ML IV (15:51)
[2021-07-09 17:47] VITALS: O2SAT 100
[2021-07-09] MEDS: Metoclopramide 10 MG/2 ML Vial 5 MG IV (17:52)
[2021-07-09] MEDS: HYDROmorphone 0.5 MG/0.5 ML SYRINGE IV (17:52)
[2021-07-09] MEDS: DiphenhydrAMINE 50 MG/ML Syringe 25 MG IV (17:52)
[2021-07-09 17:53] VITALS: BP 151/93; PULSE 106; RESP 20; TEMP 37.2; O2SAT 100
--- NOTE | 2021-07-09 18:17 | HP.PCM.HOS_ITS ---
Documented by User: Ziyad QUIÑONES 07/09/21 18:55 HPI - General General Date of Admission: 07/09/21 HPI Narrative ADDIS TORRES is a 21-year-old female who presents to the ED with [address] [place] [id number] on 07/13/2021 with a chief complaint of intractable nausea and vomiting. Patient reports that yesterday she presented to the ED with the same symptoms and was subsequently diagnosed with a urinary tract infection which was placed on Macrobid. Patient reports that her nausea and vomiting was controlled when she left the ED however went home and during dinner the previous night her nausea and vomiting returned, and she was no longer able to keep down her food or m edications. Of note, patient has a history of a total hysterectomy in December due to endometrial cancer, during the cancer there was a injury to the ureter that required a stent. Patient has not had follow-up with a ortho assistant or urologist since the surgery and she is unaware of its current status. Urine culture obtained from prior ED visit grew staph species. Patient reports no relief with any medications or interventions given in the ED. Vital signs obtained in the show BP of 151/93, HR 106, RR of 20, temperature of 99 ?F and is currently satting 10 percent on room air. CBC does not demonstrate a leukocytosis, although there is a mild anemia with hemoglobin at 11.6. BMP is unremarkable and does not demonstrate any electrolyte deficits or kidney injury. UA obtained from ED visit yesterday demonstrates yellow clear urine with positive nitrites, 100 leukocyte esterase and 1+ bacteria. As noted above urine culture obtained yesterday grew Staphylococcus species. CT of the abdomen pelvis demonstrates a left-sided J stent catheter that is stable and unchanged. There is mild hydronephrosis with a small amount of free fluid in the cul-de-sac. While in the ED blood cultures were obtained [facility] Medical History (Updated 07/09/21 @ 19:24 by Willard Rogers) Alcohol abuse Cancer Depression Endometrial cancer Menorrhagia Non-smoker Ureter injury Home Medications ciprofloxacin HCl [Cipro] 500 mg PO Q12H #14 tab 05/21/21 [Rx Last Taken Unknown] pantoprazole 40 mg PO DAILY 05/21/21 [History Last Taken Unknown] hydroxyzine pamoate [Vistaril] 25 mg PO Q6H PRN #20 cap 05/28/21 [Rx Last Taken Unknown] Allergy/AdvReac Type Severity Reaction Status Date / Time ceftriaxone [From Rocephin] Allergy Hives Verified 07/09/21 13:31 promethazine [From Phenergan] Allergy Vomiting Verified 07/09/21 13:31 Family History (Updated 07/09/21 @ 18:41 by Ziyad QUIÑONES) Father No problems noted. Mother No problems noted. Family History no significant family his no significant family history (No significant paternal or maternal medical history to include CAD, DM, HTN, HLD or CVA.) Surgical History (Updated 07/09/21 @ 18:45 by Ziyad QUIÑONES) History of hysterectomy for cancer History of renal stent Social History (Updated 07/09/21 @ 18:43 by Ziyad QUIÑONES) household members: family Smoking Status: Never smoker alcohol intake: never substance use type: does not use ROS Constitutional Constitutional: Denies anorexia, change in weight, chills, fatigue, fever(s), malaise, night sweats, weakness or other Eyes Eyes: Denies blurry vision, change in eye color, change in vision, discharge from eye(s), double vision, erythema, eye pain, loss of vision or other ENT HEENT: Denies abnormal hearing, dysphagia, ear pain, epistaxis, headache(s), h earing loss, nasal congestion, nasal discharge, post nasal drip, sinus pressure, sore throat or other Cardiovascular Cardiovascular: Denies chest pain, claudication, dyspnea on exertion, edema, lightheadedness, orthopnea, palpitations, paroxysmal nocturnal dyspnea, rapid heart rate, syncope or other Respiratory/Chest Respiratory/Chest: Denies cough, dyspnea, excessive phlegm production, hemoptysis, productive cough, shortness of breath at rest, shortness of breath with exertion, wheezing or other Gastrointestinal Gastrointestinal: Reports abdominal pain, nausea and vomiting; Denies coffee ground emesis, constipation, diarrhea, dyspepsia, hematemesis, hematochezia, loose stools, melena or other Genitourinary Genitourinary: Denies burning urination, difficulty urinating, dysuria, hematuria, nocturia, urinary frequency, urinary hesitancy, urinary incontinence, urinary urgency or other Musculoskeletal Musculoskeletal: Denies arthralgias, back pain, joint pain, joint stiffness, joint swelling, myalgias, neck pain or other Neurologic Neurologic: Denies abnormal gait, abnormal speech, confusion, disequilibrium, dizziness, focal weakness, headache(s), numbness, paresthesias, seizure-like activity, seizures, syncope, tingling, tremor(s) or other Psychiatric Psychiatric: Denies anxiety, depression, homicidal ideation, suicidal ideation or other Endocrine Endocrinology: Denies change in body appearance, cold intolerance, excessive sweating, heat intolerance, polydipsia, polyuria or other Hematologic/Lymphatic Hematologic/Lymphatic: Denies anemia, easy bleeding, easy bruising, lymphadenopathy or other Allergic/Immunologic Allergic/Immunologic: Denies rhinitis, hives, eczemia, asthma or other Vital Signs Vital Signs Vital Signs: 07/09/21 13:29 07/09/21 15:29 07/09/21 17:47 Temperature 96.6 F L Temperature Source Temporal Pulse Rate 112 H Respiratory Rate 20 H 14 Blood Pressure 145/99 H Blood Pressure Mean 114 Pulse Ox 98 100 Oxygen Delivery Method Room Air Room Air 07/09/21 17:53 Temperature 99 F Temperature Source Temporal Pulse Rate 106 H Respiratory Rate 20 H Blood Pressure 151/93 H Blood Pressure Mean 112 Pulse Ox 100 Oxygen Delivery Method Room Air Weight Weight: 189 lb Body Mass Index (BMI) 27.8 Physical Exam Const alert, oriented x3 and no apparent distress HEENT normocephalic, head/scalp atraumatic and hearing grossly normal bilaterally Eyes PERRL, EOMs intact bilaterally and conjunctivae normal Neck no lymphadenopathy, supple and no JVD Resp normal respiratory effort, no retractions, no use of accessory muscles and clear to auscultation bilaterally Cardio regular rate, regular rhythm, no murmurs and no JVD GI Inspection: abdominal distention Palpation: tender LLQ Extremity normal to inspection, full ROM and no clubbing, cyanosis or edema Peripheral Pulses: Yes pulses 2+ throughout Skin no rashes or lesions noted, no wounds, skin turgor normal and no jaundice Neuro CN's II-XII intact bilaterally Psych affect normal Results Lab / Micro Data Result Diagrams: 07/09/21 14:39 07/09/21 14:39 Labs: Laboratory Results - last 24 hr 07/09/21 14:39: WBC 8.8, RBC 4.89, Hgb 11.6 L, Hct 38.2, MCV 78.1 L, MCH 23.7 L, MCHC 30.4 L, RDW Std Deviation 50.3 H, RDW Coeff of Roz 17.6 H, Plt Count 391, MPV 8.8, Immature Gran % (Auto) 0.300, Neut % (Auto) 84.7 H, Lymph % (Auto) 11.4 L, [place] % (Auto) 2.2, Eos % (Auto) 1.1, Baso % (Auto) 0.3, Absolute Neuts (auto) 7.4, Absolute Lymphs (auto) 1.00, Nucleated RBC % 0, Differential Comment SCANNED, Platelet Estimate ADEQUATE 07/09/21 14:39: Sodium 139, Potassium 3.8, Chloride 103, Carbon Dioxide 28.0, Anion Gap 8, BUN 6 L, Creatinine 0.85, Estim Creat Clear Calc 109.41, Est GFR (MDRD) Af Amer 109, Est GFR (MDRD) Non-Af 90, BUN/Creatinine Ratio 7.1 L, G lucose 94, Calcium 9.3, Total Bilirubin 0.30, AST 23, ALT 32, Alkaline Phosphatase 69, Total Protein 8.4 H, Albumin 3.6, Globulin 4.8 H, Album in/Globulin Ratio 0.8 L 07/09/21 14:39: Lactic Acid 1.2 Assessment & Plan Assessment/Plan (1) Intractable vomiting: (2) Acute cystitis: (3) Intractable nausea and vomiting: (4) UTI (urinary tract infection): PLAN: Patient is a 21-year-old female presents the ED with [address] [place] [address] on 07/09/2021 1 with a chief complaint of intractable nausea and vomiting. Patient will be placed on [facility] for medical observation and treatment. 1) intractable nausea vomiting in the setting of acute cystitis. Patient presents with a 2-day history of nausea vomiting that is not responding to medications or antibiotics. Patient has failed outpatient therapy and requires inpatient management. Of note, patient had an full hysterectomy for endometrial cancer completed at [facility]. During surgery a ureteral stent was placed due to complications. CT of the abdomen/pelvis shows a stable ureteral stent with no hydronephrosis. Discussed case with Dr. Vanegas from Urology who agreed to see patient on consult, however feels that the patient needs medical management she needs to return to [facility] where her surgery was completed. Plan; placed on MS 3 for medical observation, continue vancomycin initiated ED, CBC and BMP in a.m., records request from [facility], urology consulted, as needed medications ordered, phosphorus and mag level ordered. 2) endometrial cancer Total hysterectomy completed in December 2020 as noted above, which required a ureteral stent due to complications. Patient has not had a follow-up with ortho assistant or urologist after surgery. Urology consult as above. CODE STATUS: Full code DVT Prophylaxis - SCD's Patient seen by Ziyad Jenkins PA-C, under the supervision of Dr. Solis. Documented by User: Dr. Sandy Solis MD 07/09/21 22:15 HPI - General General Date of Admission: 07/09/21 [facility] Medical History (Updated 07/09/21 @ 19:24 by Willard Rogers) Alcohol abuse Cancer Depression Endometrial cancer Menorrhagia Non-smoker Ureter injury Home Medications ciprofloxacin HCl [Cipro] 500 mg PO Q12H #14 tab 05/21/21 [Rx Last Taken Unknown] pantoprazole 40 mg PO DAILY 05/21/21 [History Last Taken Unknown] hydroxyzine pamoate [Vistaril] 25 mg PO Q6H PRN #20 cap 05/28/21 [Rx Last Taken Unknown] Allergy/AdvReac Type Severity Reaction Status Date / Time ceftriaxone [From Rocephin] Allergy Hives Verified 07/09/21 13:31 promethazine [From Phenergan] Allergy Vomiting Verified 07/09/21 13:31 Family History (Updated 07/09/21 @ 18:41 by Ziyad QUIÑONES) Father No problems noted. Mother No problems noted. Family History no significant family his Surgical History (Updated 07/09/21 @ 18:45 by Ziyad QUIÑONES) History of hysterectomy for cancer History of renal stent Social History (Updated 07/09/21 @ 18:43 by Ziyad QUIÑONES) household members: family Smoking Status: Never smoker alcohol intake: never substance use type: does not use Results Lab / Micro Data Result Diagrams: 07/09/21 14:39 07/09/21 14:39
[2021-07-09 18:43] LABS: Bacteria 0 SEEN /hpf (None Seen); Mucous, Urine 0 SEEN /hpf (<or=2+); Squamous Epithelial Cells - UA 0 SEEN /hpf (5-10)
[2021-07-09 19:09] VITALS: BMI 28.1
--- NOTE | 2021-07-09 19:09 | PCS.PANDOC ---
PANDEMIC DOCUMENTATION INITIATED: Date: 04/22/2021 Time: 190
[2021-07-09 19:20] LABS: Color, Urine Yellow (Yellow); Glucose, Dipstick Normal (Normal); Leukocyte Esterase-Dipstick 25 /ul (Negative); Nitrite-Dipstick Negative (Negative); Occult Blood-Urine 50 /ul (Negative); Protein-Dipstick 30 mg/dl (Negative); Specific Gravity, Urine 1.015 (1.002-1.030); Urine Bilirubin Dipstick Negative (Negative); Urine Clarity Sl. Cloudy (Clear); Urine Urobilinogen 1 mg/dl (Normal)
[2021-07-09 19:31] LABS: Ketone-Dipstick 150 mg/dl (Negative)
[2021-07-09 19:33] LABS: Red Blood Cells-Urine 5-10 SEEN /hpf (0-5); White Blood Cells 0-5 SEEN /hpf (0-5)
[2021-07-09 19:34] LABS: Amorphous Sediment 1+
[2021-07-09] MEDS: 0.9% Normal Saline 1,000 ML 250 ML IV (19:52)
[2021-07-09] MEDS: 0.9% Normal Saline 1,000 ML 125 ML IV (20:39)
[2021-07-09] MEDS: Morphine 2 MG/ML Syringe IV (20:47)
[2021-07-09 20:54] VITALS: BP 145/82; PULSE 99; RESP 18; TEMP 36.7; O2SAT 100
[2021-07-09] MEDS: Vancomycin IV 1,000 MG/200 ML BAG 200 MG IV (22:43)
[2021-07-10] MEDS: Ondansetron 4 MG/2 ML Vial IV ×3 (02:10→15:56)
[2021-07-10] MEDS: 0.9% Saline Lock 10 ML Syringe IV ×2 (02:11→21:29)
[2021-07-10] MEDS: Morphine 2 MG/ML Syringe IV ×4 (02:11→21:29)
[2021-07-10 03:10] VITALS: BP 144/88; PULSE 102; RESP 18; TEMP 37.1; O2SAT 100
[2021-07-10] MEDS: 0.9% Normal Saline 1,000 ML 125 ML IV ×3 (03:46→23:03)
[2021-07-10 05:18] LABS: Absolute Lymphocyte Count 1.37 X10^3/uL (0.83-4.51); Basophil# 0.02 X10^3/uL; Basophil% 0.2 % (0-1); Eosinophil# 0.02 X10^3/uL; Eosinophils% 0.2 % (0-5); Hematocrit 32.6 % (37-47); Hemoglobin 9.8 g/dL (12.0-15.0); Lymphocyte # 1.37 X10^3/ul (0.83-4.51); Lymphocyte % 13.9 % (19-41); Mean Corp Hgb Conc 30.1 g/dL (32-36); Mean Corpuscular Hgb 23.4 pg (27.0-32.0); Mean Platelet Vol. 8.6 fl (6.2-12.0); Monocyte# 0.43 X10^3/uL; Monocyte% 4.4 % (0-10); NRBC Flagged by Analyzer 0 % (0-5); Neutrophil # 7.96 X10^3/uL (2.7-7.7); Neutrophil % 80.9 % (47-70); Platelet Count 350 K/mm3 (150-450); RBC Distribution Width CV 17.4 % (11.6-14.6); RBC Distribution Width SD 49.4 fl (35.1-43.9); Red Blood Count 4.18 M/mm3 (4.2-5.4); White Blood Count 9.8 K/mm3 (4.4-11.0)
[2021-07-10 05:53] LABS: Anion Gap 10 (5-15); BUN 4 mg/dL (7-18); BUN/Creat Ratio 7.2 RATIO (10-20); Calcium,Total 8.7 mg/dL (8.5-10.1); Chloride 103 mmol/L (98-107); Creatinine, Serum 0.55 mg/dL (0.55-1.02); EST Glomerular Filtration Rate 147 mL/min (>60); Est Glom Filt Rate - Afr Amer 178 mL/min (>60); Estimated Creatinine Clearance 169.09 ml/min; Glucose 101 mg/dL (74-106); Phosphorus 3.4 mg/dL (2.5-4.9); Potassium 3.6 mmol/L (3.5-5.1); Sodium Level 137 mmol/L (136-145)
[2021-07-10] MEDS: Vancomycin IV 1,000 MG/200 ML BAG 200 MG IV ×3 (06:15→23:04)
--- NOTE | 2021-07-10 08:12 | PCM.CONS.GEN ---
Assessment & Plan Assessment/Plan (1) Intractable vomiting: (2) Intractable abdominal pain: PLAN: Continue management for urinary tract infection Continue supportive care Follow-up with urologist from [place] for removal of stent and ureteral imaging Okay for discharge from urology standpoint (3) Acute cystitis: (4) Abdominal pain: HPI Consult Data Date of Consult: 07/10/21 HPI Narrative HPI Narrative: ADDIS TORRES, is a 21 F who is admitted with nausea, vomiting and flank pain. History of stent placed for ureteral injury at the time of hysterectomy for uterine cancer in 12/2020 in [place]. She does not recall the name of the physician who was caring for her there. She did not follow-up for removal of her stent. She currently reports resolved nausea and no further vomiting. She is having left lower quadrant pain only and no flank pain. We discussed the importance of her following up with her urologist for removal of her stent and imaging for her ureteral injury. [facility] Medical History Alcohol abuse Cancer Depression Endometrial cancer Menorrhagia Non-smoker Ureter injury Home Medications ciprofloxacin HCl [Cipro] 500 mg PO Q12H #14 tab 05/21/21 [Rx Last Taken Unknown] pantoprazole 40 mg PO DAILY 05/21/21 [History Last Taken Unknown] hydroxyzine pamoate [Vistaril] 25 mg PO Q6H PRN #20 cap 05/28/21 [Rx Last Taken Unknown] Allergy/AdvReac Type Severity Reaction Status Date / Time ceftriaxone [From Rocephin] Allergy Hives Verified 07/09/21 13:31 promethazine [From Phenergan] Allergy Vomiting Verified 07/09/21 13:31 Family History Father No problems noted. Mother No problems noted. Family History no significant family his Surgical History History of hysterectomy for cancer History of renal stent Social History household members: family Smoking Status: Never smoker alcohol intake: never substance use type: does not use ROS ROS Narrative Patient is sleeping in bed comfortably. Awakens upon me entering the room. Closing her eyes during the conversation and appears very tired today. Constitutional Constitutional: Reports systems reviewed and no addt'l complaints, except as documented Eyes Eyes: Reports systems reviewed and no addt'l complaints, except as documented ENT HEENT: Reports systems reviewed and no addt'l complaints, except as documented Cardiovascular Cardiovascular: Reports systems reviewed and no addt'l complaints, except as documented Respiratory/Chest Respiratory/Chest: Reports systems reviewed and no addt'l complaints, except as documented Gastrointestinal Gastrointestinal: Reports systems reviewed and no addt'l complaints, except as documented Genitourinary Genitourinary: Reports systems reviewed and no addt'l complaints, except as documented Musculoskeletal Musculoskeletal: Reports systems reviewed and no addt'l complaints, except as documented Integumentary Integumentary: Reports systems reviewed and no addt'l complaints, except as documented Neurologic Neurologic: Reports systems reviewed and no addt'l complaints, except as documented Psychiatric Psychiatric: Reports systems reviewed and no addt'l complaints, except as documented Endocrine Endocrinology: Reports systems reviewed and no addt'l complaints, except as documented Hematologic/Lymphatic Hematologic/Lymphatic: Reports systems reviewed and no addt'l complaints, except as documented Physical Exam Const alert, oriented x3 and no apparent distress General Appearance: cooperative and comfortable HEENT Head and Scalp: normal to inspection and normocephalic Nose: external nose normal External Ear: external ears normal Mouth: oral and palatal mucosa normal and lips normal Eyes General Eye: normal appearance of both eyes Neck supple General: trachea midline Chest Chest: symmetrical chest wall rise Resp normal respiratory effort, normal air movement, no retractions and no use of accessory muscles Cardio regular rate and regular rhythm GI soft to palpation Palpation: tender LLQ no CVA tenderness Back/Spine no CVA tenderness Skin no rashes or lesions noted Neuro oriented x3, CN's II-XII intact bilaterally and moves all extremities Psych mental status grossly normal and cooperative Lab / Micro Data Result Diagrams: 07/10/21 05:08 07/10/21 05:08 Labs: Laboratory Results - last 24 hr 07/09/21 14:39: WBC 8.8, RBC 4.89, Hgb 11.6 L, Hct 38.2, MCV 78.1 L, MCH 23.7 L, MCHC 30.4 L, RDW Std Deviation 50.3 H, RDW Coeff of Roz 17.6 H, Plt Count 391, MPV 8.8, Immature Gran % (Auto) 0.300, Neut % (Auto) 84.7 H, Lymph % (Auto) 11.4 L, [place] % (Auto) 2.2, Eos % (Auto) 1.1, Baso % (Auto) 0.3, Absolute Neuts (auto) 7.4, Absolute Lymphs (auto) 1.00, Nucleated RBC % 0, Differential Comment SCANNED, Platelet Estimate ADEQUATE 07/09/21 14:39: Sodium 139, Potassium 3.8, Chloride 103, Carbon Dioxide 28.0, Anion Gap 8, BUN 6 L, Creatinine 0.85, Estim Creat Clear Calc 109.41, Est GFR (MDRD) Af Amer 109, Est GFR (MDRD) Non-Af 90, BUN/Creatinine Ratio 7.1 L, Glucose 94, Calcium 9.3, Total Bilirubin 0.30, AST 23, ALT 32, Alkaline Phosphatase 69, Total Protein 8.4 H, Albumin 3.6, Globulin 4.8 H, Albumin/Globulin Ratio 0.8 L 07/09/21 14:39: Lactic Acid 1.2 07/09/21 18:35: Urine Color Yellow, Urine Clarity Sl. Cloudy, Urine pH 8.0, Ur Specific [place] 1.015, Urine Protein 30 H, Urine Glucose (UA) Normal, Urine Ketones 150 A*, Urine Occult Blood 50 H, Urine Nitrite Negative, Urine Bilirubin Negative, Urine Urobilinogen 1 H, Ur Leukocyte Esterase 25 H, Urine RBC 5-10 SEEN, Urine WBC 0-5 SEEN, Ur Squamous Epith Cells 0 SEEN, Amorphous Sediment 1+, Urine Bacteria 0 SEEN, Urine Mucus 0 SEEN 07/10/21 05:08: WBC 9.8, RBC 4.18 L, Hgb 9.8 L, Hct 32.6 L, MCV 78.0 L, MCH 23.4 L, MCHC 30.1 L, RDW Std Deviation 49.4 H, RDW Coeff of Roz 17.4 H, Plt Count 350, MPV 8.6, Immature Gran % (Auto) 0.400, Neut % (Auto) 80.9 H, Lymph % (Auto) 13.9 L, [place] % (Auto) 4.4, Eos % (Auto) 0.2, Baso % (Auto) 0.2, Absolute Neuts (auto) 8.0 H, Absolute Lymphs (auto) 1.37, Nucleated RBC % 0 07/10/21 05:08: Sodium 137, Potassium 3.6, Chloride 103, Carbon Dioxide 24.0, Anion Gap 10, BUN 4 L, Creatinine 0.55, Estim Creat Clear Calc 169.09, Est GFR (MDRD) Af Amer 178, Est GFR (MDRD) Non-Af 147, BUN/Creatinine Ratio 7.2 L, Glucose 101, Calcium 8.7, Phosphorus 3.4, Magnesium 2.0
[2021-07-10 09:10] VITALS: BP 146/88; PULSE 98; RESP 18; TEMP 36.6; O2SAT 100
[2021-07-10] MEDS: Famotidine 20 MG Tablet PO ×2 (09:26→21:24)
--- NOTE | 2021-07-10 09:40 | NURSING ---
spoke with pharmacy re:thorazine [id number] send LARRY
[2021-07-10] MEDS: ChlorproMAZINE 50 MG/2 ML Ampul 25 MG IM ×2 (09:55→15:30)
--- NOTE | 2021-07-10 12:10 | CASEMGMT ---
EMY MAI Face to Face with patient for initial transition planning/care coordination assessment. RN CM introduced self and role at [facility]. Patient lying in bed, alert and oriented. Patient willing to participate in assessment and is able to answer all questions appropriately. Care providers, pharmacy, and demographics verified. Patient wishes to discharge home, denies need for home health at this time. Patient states he has no further needs or concerns at this time. CM to follow for discharge planning needs that may arise. PCP: Carl Specialists: none Preferred Pharmacy: [facility] Insurance: [email or web address] Prescription Benefit: yes Living Will/HPOA: none LNOK: mother Living Arrangements: Patient lives roommate in a first floor apartment with 1 step to enter. Patient is independent at home. Transportation: mother DME/HHC: Patient denies DME or previous HHC. Disposition Plan: Patient to discharge home with family support and follow-up plans in place. Ghazala ESCALANTE, RN, CM
--- NOTE | 2021-07-10 13:15 | PCM.PN.HOSP ---
Documented by User: Ziyad QUIÑONES 07/10/21 13:29 Subjective Subjective Patient is a 21-year-old female resting in bed, alert and orient x3. Patient reports that her nausea and vomiting have improved from admission, is still dry heaving, although vomiting is not productive. Denies development of any new symptoms overnight. Does not appear to be in acute distress, although does seem fatigued. Objective Data Objective Data Vital Signs: Vital Signs Temp Pulse Resp BP Pulse Ox 97.8 F 98 18 146/88 H 100 07/10/21 09:10 07/10/21 09:10 07/10/21 09:10 07/10/21 09:10 07/10/21 09:10 Oxygen Delivery Method Room Air Weight: 190 lb 11.198 oz Body Mass Index (BMI) 28.1 Intake & Output: Intake and Output for Last 24 Hours 07/08/21 07/09/21 07/10/21 23:59 23:59 23:59 Intake Total 1925.0 / 1925.0 1623.75 / 1623.75 Balance 1925.0 / 1925.0 1623.75 / 1623.75 Lab / Micro Data Result Diagrams: 07/10/21 05:08 07/10/21 05:08 Labs: Laboratory Results - last 24 hr 07/09/21 14:39: WBC 8.8, RBC 4.89, Hgb 11.6 L, Hct 38.2, MCV 78.1 L, MCH 23.7 L, MCHC 30.4 L, RDW Std Deviation 50.3 H, RDW Coeff of Roz 17.6 H, Plt Count 391, MPV 8.8, Immature Gran % (Auto) 0.300, Neut % (Auto) 84.7 H, Lymph % (Auto) 11.4 L, [place] % (Auto) 2.2, Eos % (Auto) 1.1, Baso % (Auto) 0.3, Absolute Neuts (auto) 7.4, Absolute Lymphs (auto) 1.00, Nucleated RBC % 0, Differential Comment SCANNED, Platelet Estimate ADEQUATE 07/09/21 14:39: Sodium 139, Potassium 3.8, Chloride 103, Carbon Dioxide 28.0, Anion Gap 8, BUN 6 L, Creatinine 0.85, Estim Creat Clear Calc 109.41, Est GFR (MDRD) Af Amer 109, Est GFR (MDRD) Non-Af 90, BUN/Creatinine Ratio 7.1 L, Glucose 94, Calcium 9.3, Total Bilirubin 0.30, AST 23, ALT 32, Alkaline Phosphatase 69, Total Protein 8.4 H, Albumin 3.6, Globulin 4.8 H, Albumin/Globulin Ratio 0.8 L 07/09/21 14:39: Lactic Acid 1.2 07/09/21 18:35: Urine Color Yellow, Urine Clarity Sl. Cloudy, Urine pH 8.0, Ur Specific [place] 1.015, Urine Protein 30 H, Urine Glucose (UA) Normal, Urine Ketones 150 A*, Urine Occult Blood 50 H, Urine Nitrite Negative, Urine Bilirubin Negative, Urine Urobilinogen 1 H, Ur Leukocyte Esterase 25 H, Urine RBC 5-10 SEEN, Urine WBC 0-5 SEEN, Ur Squamous Epith Cells 0 SEEN, Amorphous Sediment 1+, Urine Bacteria 0 SEEN, Urine Mucus 0 SEEN 07/10/21 05:08: WBC 9.8, RBC 4.18 L, Hgb 9.8 L, Hct 32.6 L, MCV 78.0 L, MCH 23.4 L, MCHC 30.1 L, RDW Std Deviation 49.4 H, RDW Coeff of Roz 17.4 H, Plt Count 350, MPV 8.6, Immature Gran % (Auto) 0.400, Neut % (Auto) 80.9 H, Lymph % (Auto) 13.9 L, [place] % (Auto) 4.4, Eos % (Auto) 0.2, Baso % (Auto) 0.2, Absolute Neuts (auto) 8.0 H, Absolute Lymphs (auto) 1.37, Nucleated RBC % 0 07/10/21 05:08: Sodium 137, Potassium 3.6, Chloride 103, Carbon Dioxide 24.0, Anion Gap 10, BUN 4 L, Creatinine 0.55, Estim Creat Clear Calc 169.09, Est GFR (MDRD) Af Amer 178, Est GFR (MDRD) Non-Af 147, BUN/Creatinine Ratio 7.2 L, Glucose 101, Calcium 8.7, Phosphorus 3.4, Magnesium 2.0 Physical Exam Const alert, oriented x3 and no apparent distress Orientation / Consciousness: lethargic HEENT head/scalp atraumatic, moist oral mucous membranes and oropharynx normal Head and Scalp: normocephalic Eyes PERRL, EOMs intact bilaterally and conjunctivae normal Neck no lymphadenopathy, supple and no JVD Resp normal respiratory effort, no retractions, no use of accessory muscles and clear to auscultation bilaterally Cardio regular rate, regular rhythm, no murmurs and no JVD GI normal to inspection, nondistended, normoactive bowel sounds and soft to palpation Palpation: tender LUQ Extremity normal to inspection, full ROM and no clubbing, cyanosis or edema Peripheral Pulses: Yes pulses 2+ throughout Skin no rashes or lesions noted, no wounds, skin turgor normal and no jaundice Neuro CN's II-XII intact bilaterally Psych affect normal Assessment & Plan Assessment/Plan (1) Acute blood loss anemia: (2) Intractable abdominal pain: (3) Intractable vomiting: (4) UTI (urinary tract infection): PLAN: Day 1 Discharge plannin) intractable nausea vomiting in the setting of acute cystitis. Nausea and vomiting have improved from admission, currently patient is only dry heaving. Denies development of any new symptoms overnight. Vital signs stable and patient is afebrile. Urine cultures grew Staph epidermidis with sensitivity to vancomycin, blood cultures pending. CBC does not demonstrate a leukocytosis. Urology saw patient, recommendations are to continue antibiotics and to follow-up with urologist at [facility]. 2) endometrial cancer Total hysterectomy completed in December 2020 as noted above, which required a ureteral stent due to complications. Patient has not had a follow-up with stitch wheeler or urologist after surgery. Urology consult as above. 3) hypertension Patient does not have an history of high blood pressure, blood pressure has been consistently elevated throughout admission. Lisinopril initiated, as needed hydralazine ordered. CODE STATUS: Full code DVT Prophylaxis - SCD's Patient seen by Ziyad Jenkins PA-C, under the supervision of Dr. Johansen. Documented by User: Dr. Adelita Johansen MD 07/10/21 16:30 Objective Data Lab / Micro Data Result Diagrams: 07/10/21 05:08 07/10/21 05:08 Charges/Coding Addendum Addendum: Patient seen by Ziyad Jenkins PA-C under my supervision Patient seen and examined. She was admitted with a complaint of intractable nausea and vomiting. She was recently diagnosed with UTI and started on macrobid. She was discharged home but her symptoms recurred so she came back. She had a ureteral injury during hysterectomy for for endometrial cancer. She had a stent placed in the ureter. She is being managed for UTI with failed outpatient therapy. Patient seen and examined. She still complains of nausea and vomiting, and says the zofran is not working. She also complains of abdominal pain. Review of systems is otherwise negative. O/E: Const alert, oriented x3 and no apparent distress HEENT normocephalic, head/scalp atraumatic and hearing grossly normal bilaterally Eyes PERRL, EOMs intact bilaterally and conjunctivae normal Neck no lymphadenopathy, supple and no JVD Resp normal respiratory effort, no retractions, no use of accessory muscles and clear to auscultation bilaterally Cardio regular rate, regular rhythm, no murmurs and no JVD GI Inspection: mild abdominal fullness, left lower quadrant tenderness, no guarding or rebound tenderness. Extremity normal to inspection, full ROM and no clubbing, cyanosis or edema Peripheral Pulses: Yes pulses 2+ throughout Skin no rashes or lesions noted, no wounds, skin turgor normal and no jaundice Neuro CN's II-XII intact bilaterally Psych affect normal Plan is to conintue IV vancomycin. Urine cultures grew Staph epidermidis. Blood cultures pending. Urology on board; recommends to follow up with urologist at [facility]. Hydrate with IVF. Chlorpromazine added on to zofran for nausea. IV morphine prn for pain. Rest as per Ziyad Jenkins PA-C's note, which I have reviewed and endorsed. Visit Charges Inpatient E&M: 12268 Subs Hosp L3
[2021-07-10 15:10] LABS: Vancomycin, Trough Level 11.3 ug/mL (5.0-15.0)
--- NOTE | 2021-07-10 15:21 | NURSING ---
Refaxed the consent for medical records to [facility].
[2021-07-10 16:00] VITALS: BP 144/88; PULSE 98; RESP 18; TEMP 36.7; O2SAT 95
--- NOTE | 2021-07-10 16:07 | PCM.RX.CS ---
Consult Pharmacy has been consulted to manage selected antiobiotic: Vancomycin Type of Consult: Follow-up Prior Doses of Antibiotics Received/Current Regimen: currently on vancomycin 1000mg IV q8h Labs: Sodium 137 mmol/L (136-145) 07/10/21 05:08 Potassium 3.6 mmol/L (3.5-5.1) 07/10/21 05:08 Chloride 103 mmol/L (98-107) 07/10/21 05:08 Carbon Dioxide 24.0 mmol/L (21.0-32.0) 07/10/21 05:08 Anion Gap 10 (5-15) 07/10/21 05:08 BUN 4 mg/dL (7-18) L 07/10/21 05:08 Creatinine 0.55 mg/dL (0.55-1.02) 07/10/21 05:08 Est GFR (MDRD) Af Amer 178 mL/min (>60) 07/10/21 05:08 Est GFR (MDRD) Non-Af 147 mL/min (>60) 07/10/21 05:08 BUN/Creatinine Ratio 7.2 RATIO (10-20) L 07/10/21 05:08 Glucose 101 mg/dL (74-106) 07/10/21 05:08 Vancomycin Trough 11.3 ug/mL (5.0-15.0) 07/10/21 14:30 Weight used for dosin.5 kg Estimated Creatinine Clearance: 169ml/min Goal Trough: 15-20 mcg/mL Pharmacy Plan for Drug Dosing: The vanc trough drawn today at 14:30 (approx 8 hours after the previous dose) was 11.3. This is below goal range but the patient has only had 3 doses of vanc so far so will leave the patient on the same dose for now. Expect the trough to keep going up by staying on the same dose. Will check another trough in 2 days per protocol to verify. Pharmacy Service will continue to monitor and adjust dosing as required. Follow-Up Labs: Trough Vancomycin Labs to be done on [date and time ordered]: 07/12/21 14:30
[2021-07-10] MEDS: LORazepam 2 MG/ML Syringe 0.5 MG IV (16:33)
[2021-07-10 21:00] VITALS: BP 132/82; PULSE 92; RESP 16; TEMP 36; O2SAT 96
[2021-07-10] MEDS: Lisinopril 10 MG Tablet PO (21:24)
[2021-07-11] MEDS: Morphine 2 MG/ML Syringe IV ×4 (00:27→22:22)
[2021-07-11] MEDS: Ondansetron 4 MG/2 ML Vial IV ×2 (00:27→14:56)
[2021-07-11] MEDS: 0.9% Saline Lock 10 ML Syringe IV ×3 (00:28→22:23)
[2021-07-11 03:00] VITALS: BP 126/74; PULSE 84; RESP 16; TEMP 36.3; O2SAT 96
[2021-07-11] MEDS: DiphenhydrAMINE 25 MG Capsule PO ×2 (04:57→14:55)
[2021-07-11 05:50] LABS: Absolute Lymphocyte Count 2.06 X10^3/uL (0.83-4.51); Absolute Neutrophil Count 3.9 X10^3/uL (2.0-7.7); Basophil# 0.02 X10^3/uL; Basophil% 0.3 % (0-1); Eosinophil# 0.11 X10^3/uL; Eosinophils% 1.7 % (0-5); Hematocrit 31.5 % (37-47); Hemoglobin 9.7 g/dL (12.0-15.0); Lymphocyte # 2.06 X10^3/ul (0.83-4.51); Lymphocyte % 31.6 % (19-41); Mean Corp Hgb Conc 30.8 g/dL (32-36); Mean Corpuscular Hgb 24.3 pg (27.0-32.0); Mean Corpuscular Volume 78.9 fL (81-99); Mean Platelet Vol. 8.4 fl (6.2-12.0); Monocyte# 0.38 X10^3/uL; Monocyte% 5.8 % (0-10); NRBC Flagged by Analyzer 0 % (0-5); Neutrophil # 3.94 X10^3/uL (2.7-7.7); Neutrophil % 60.4 % (47-70); Platelet Count 269 K/mm3 (150-450); RBC Distribution Width CV 17.6 % (11.6-14.6); RBC Distribution Width SD 51.3 fl (35.1-43.9); Red Blood Count 3.99 M/mm3 (4.2-5.4); White Blood Count 6.5 K/mm3 (4.4-11.0)
[2021-07-11 06:22] LABS: Anion Gap 6 (5-15); BUN 5 mg/dL (7-18); BUN/Creat Ratio 7.5 RATIO (10-20); Calcium,Total 8.5 mg/dL (8.5-10.1); Chloride 106 mmol/L (98-107); Creatinine, Serum 0.66 mg/dL (0.55-1.02); EST Glomerular Filtration Rate 119 mL/min (>60); Est Glom Filt Rate - Afr Amer 144 mL/min (>60); Estimated Creatinine Clearance 140.91 ml/min; Glucose 79 mg/dL (74-106); Potassium 3.3 mmol/L (3.5-5.1); Sodium Level 139 mmol/L (136-145)
[2021-07-11] MEDS: Vancomycin IV 1,000 MG/200 ML BAG 200 MG IV ×3 (06:28→22:19)
[2021-07-11 07:39] VITALS: O2SAT 94
[2021-07-11] MEDS: 0.9% Normal Saline 1,000 ML 125 ML IV ×2 (08:24→20:19)
[2021-07-11] MEDS: Famotidine 20 MG Tablet PO ×2 (08:25→22:19)
[2021-07-11] MEDS: Lisinopril 10 MG Tablet PO (08:27)
[2021-07-11] MEDS: Potassium Chloride Oral Tablet 20 MEQ 40 MEQ PO (08:27)
[2021-07-11 09:30] VITALS: BP 121/82; PULSE 93; RESP 18; TEMP 36.6; O2SAT 98
--- NOTE | 2021-07-11 10:30 | NURSING ---
urine specimen sent to lab at approx 0930 this am, specimen was ccms lab called to check on status of test-spoke w/ bonnie
[2021-07-11 12:01] LABS: Amphetamine Urine VISTA NEGATIVE (<1000 ng/mL); Barbiturate Urine VISTA NEGATIVE (< 200 ng/mL); Benzodiazepine Urine VISTA NEGATIVE (< 200 ng/mL); Cocaine Urine VISTA NEGATIVE (< 300 ng/mL); Ecstacy Urine VISTA NEGATIVE (< 500 ng/mL); Methadone Urine VISTA NEGATIVE (< 300 ng/mL); PCP Urine VISTA NEGATIVE (< 25 ng/mL); THC Urine VISTA NEGATIVE (< 50 ng/mL); Vista UDS pH Range 6
--- NOTE | 2021-07-11 13:37 | PN.HOSP_ITS ---
Documented by User: Meli Madrid NP-C 07/11/21 13:51 Subjective Subjective Patient seen and examined. Patient ambulating in room. Patient denies any vomiting but states she still has nausea however has not had emesis since last night. Patient also complains of left upper quadrant pain which has been m anaged with pain medication. Objective Data Objective Data Vital Signs: Vital Signs Temp Pulse Resp BP Pulse Ox 97.9 F 93 18 121/82 H 98 07/11/21 09:30 07/11/21 09:30 07/11/21 09:30 07/11/21 09:30 07/11/21 09:30 Oxygen Delivery Method Room Air Weight: 194 lb 0.108 oz Body Mass Index (BMI) 28.1 Intake & Output: Intake and Output for Last 24 Hours 07/09/21 07/10/21 07/11/21 23:59 23:59 23:59 Intake Total 1925.0 / 1925.0 3473.75 / 3573.75 2250 / 2250 Output Total 200 / 200 Balance 1925.0 / 1925.0 3273.75 / 3373.75 2250 / 2250 Lab / Micro Data Result Diagrams: 07/11/21 05:25 07/11/21 05:25 Labs: Laboratory Results - last 24 hr 07/10/21 14:30: Vancomycin Trough 11.3 07/11/21 05:25: WBC 6.5, RBC 3.99 L, Hgb 9.7 L, Hct 31.5 L, MCV 78.9 L, MCH 24.3 L, MCHC 30.8 L, RDW Std Deviation 51.3 H, RDW Coeff of Roz 17.6 H, Plt Count 269, MPV 8.4, Immature Gran % (Auto) 0.200, Neut % (Auto) 60.4, Lymph % (Auto) 31.6, [place] % (Auto) 5.8, Eos % (Auto) 1.7, Baso % (Auto) 0.3, Absolute Neuts (auto) 3.9, Absolute Lymphs (auto) 2.06, Nucleated RBC % 0 07/11/21 05:25: Sodium 139, Potassium 3.3 L, Chloride 106, Carbon Dioxide 27.0, Anion Gap 6, BUN 5 L, Creatinine 0.66, Estim Creat Clear Calc 140.91, Est GFR (MDRD) Af Amer 144, Est GFR (MDRD) Non-Af 119, BUN/Creatinine Ratio 7.5 L, Glucose 79, Calcium 8.5 07/11/21 11:37: Urine Opiates Screen POSITIVE H, Urine Methadone Screen NEGATIVE, Ur Barbiturates Screen NEGATIVE, Ur Phencyclidine Scrn NEGATIVE, Ur Amphetamines Screen NEGATIVE, U Methamphetamin-MDMA NEGATIVE, U Benzodiazepines Scrn NEGATIVE, Urine Cocaine Screen NEGATIVE, U Cannabinoids Screen NEGATIVE, Ur Drug Screen Comment Micro: Microbiology 07/09/21 14:39 Blood Culture (Wb) - Anticubital Left Blood Culture - Preliminary No growth in 48 hours. 07/09/21 14:39 Blood Culture (Wb) - Line Draw Blood Culture - Preliminary No growth in 48 hours. Physical Exam Const alert, oriented x3 and no apparent distress HEENT head/scalp atraumatic Head and Scalp: normocephalic Eyes conjunctivae normal and no scleral icterus Neck full ROM and supple Resp normal respiratory effort, normal air movement and clear to auscultation bilaterally Effort and Inspection: able to speak in complete sentences and symmetric chest m ovement Cardio regular rate, regular rhythm, S1 normal heart sound and S2 normal heart sound GI normal to inspection, nondistended, normoactive bowel sounds, soft to palpation and non-tender Extremity normal to inspection, full ROM and no clubbing, cyanosis or edema Skin no rashes or lesions noted, no wounds and skin turgor normal Neuro oriented x3, moves all extremities, no focal motor deficits and no sensory deficits noted Sensorium / Orientation: awake and alert Speech: speech normal Psych Mood & Affect: flat affect Assessment & Plan Assessment/Plan (1) Intractable abdominal pain: (2) Intractable nausea and vomiting: PLAN: 1. Intractable nausea and vomiting -Vomiting has improved however patient continues to be nauseated -Vital signs stable, afebrile -Continue IV Zofran and chlorpromazine 2. Acute urinary tract infection -Continue vancomycin for positive staph epidermidis in urine -urology following recommends continuing antibiotics and to follow-up with patient's Urologist at [facility] upon discharge 3. Endometrial cancer -Patient had total hysterectomy completed in December 2019 and received a ureteral stent secondary complications from that surgery. Patient has not followed up with drapery installer or urologist after surgery -Recommend patient follow-up outpatient with gynecology and urology 4. Hypertension -Continue lisinopril -continue as needed hydralazine DVT prophylaxis-SCDs This patient was seen by JOYN Bronson under the supervision of Dr. Jessica borjas. Documented by User: Dr. Adelita Johansen MD 07/11/21 15:48 Objective Data Lab / Micro Data Result Diagrams: 07/11/21 05:25 07/11/21 05:25 Charges/Coding Addendum Addendum: Patient seen by Meli BORGES under my supervision Patient seen and examined. She is still complaining of nausea, and says she thinks the morphine and oxycodone is worse. She has still has some burning with urination. Review of systems is otherwise negative. She has remained hemodynamically stable. O/E: Const alert, oriented x3 and no apparent distress HEENT head/scalp atraumatic Head and Scalp: normocephalic Eyes conjunctivae normal and no scleral icterus Neck full ROM and supple Resp normal respiratory effort, normal air movement and clear to auscultation bilaterally Cardio regular rate, regular rhythm, S1 normal heart sound and S2 normal heart sound GI normal to inspection, nondistended, normoactive bowel sounds, soft to palpation and non-tender Extremity normal to inspection, full ROM and no clubbing, cyanosis or edema Skin no rashes or lesions noted, no wounds and skin turgor normal Neuro oriented x3, moves all extremities, no focal motor deficits and no sensory deficits noted Sensorium / Orientation: awake and alert Speech: speech normal Psych Mood & Affect: normal affect We will hold morphine and oxycodone as this is thought to be contributing to nausea. Continue IV antibiotics. Encourage oral hydration. Encourage ambulation. Continue IV Zofran and chlorpromazine. BLood culture shows no growth in 48 hours. For likely DC home tomorrow. Rest as per JONY Bronson's notes which I reviewed and endorsed. Visit Charges Inpatient E&M: 52628 Subs Hosp L2
[2021-07-11 15:00] VITALS: BP 132/71; PULSE 71; RESP 18; TEMP 36.7; O2SAT 99
[2021-07-11 22:00] VITALS: BP 133/84; PULSE 87; RESP 16; TEMP 36.4; O2SAT 95
[2021-07-12 03:20] VITALS: BP 125/76; PULSE 69; RESP 16; TEMP 36.3; O2SAT 97
[2021-07-12] MEDS: 0.9% Normal Saline 1,000 ML 125 ML IV (05:02)
[2021-07-12] MEDS: 0.9% Saline Lock 10 ML Syringe IV (05:41)
[2021-07-12] MEDS: Morphine 2 MG/ML Syringe IV (05:41)
[2021-07-12 05:43] LABS: Absolute Lymphocyte Count 1.65 X10^3/uL (0.83-4.51); Absolute Neutrophil Count 3.9 X10^3/uL (2.0-7.7); Basophil# 0.02 X10^3/uL; Basophil% 0.3 % (0-1); Eosinophil# 0.16 X10^3/uL; Eosinophils% 2.6 % (0-5); Hematocrit 31.1 % (37-47); Hemoglobin 9.5 g/dL (12.0-15.0); Lymphocyte # 1.65 X10^3/ul (0.83-4.51); Lymphocyte % 26.9 % (19-41); Mean Corp Hgb Conc 30.5 g/dL (32-36); Mean Corpuscular Hgb 23.9 pg (27.0-32.0); Mean Corpuscular Volume 78.1 fL (81-99); Mean Platelet Vol. 8.3 fl (6.2-12.0); Monocyte# 0.42 X10^3/uL; Monocyte% 6.8 % (0-10); NRBC Flagged by Analyzer 0 % (0-5); Neutrophil # 3.87 X10^3/uL (2.7-7.7); Neutrophil % 63.1 % (47-70); Platelet Count 271 K/mm3 (150-450); RBC Distribution Width CV 17.2 % (11.6-14.6); RBC Distribution Width SD 49.1 fl (35.1-43.9); Red Blood Count 3.98 M/mm3 (4.2-5.4); White Blood Count 6.1 K/mm3 (4.4-11.0)
[2021-07-12 06:06] LABS: Anion Gap 5 (5-15); BUN 6 mg/dL (7-18); BUN/Creat Ratio 8.9 RATIO (10-20); Calcium,Total 8.3 mg/dL (8.5-10.1); Chloride 107 mmol/L (98-107); Creatinine, Serum 0.67 mg/dL (0.55-1.02); EST Glomerular Filtration Rate 117 mL/min (>60); Est Glom Filt Rate - Afr Amer 142 mL/min (>60); Estimated Creatinine Clearance 138.81 ml/min; Glucose 79 mg/dL (74-106); Potassium 3.3 mmol/L (3.5-5.1); Sodium Level 140 mmol/L (136-145)
[2021-07-12] MEDS: Vancomycin IV 1,000 MG/200 ML BAG 200 MG IV (06:07)
[2021-07-12 08:13] VITALS: O2SAT 94
[2021-07-12 08:20] VITALS: BP 129/86; PULSE 68; RESP 18; TEMP 37.1; O2SAT 98
[2021-07-12] MEDS: Lisinopril 10 MG Tablet PO (08:22)
[2021-07-12] MEDS: Famotidine 20 MG Tablet PO (08:22)
[2021-07-12] MEDS: Ensure Clear 120 ML Liquid PO ×2 (09:52→11:04)
[2021-07-12] MEDS: Potassium Chloride 10mEq/100mL 10 MEQ/100 ML IV.SOLN. 100 MEQ IV BOLUS ×4 (09:52→13:20)
--- NOTE | 2021-07-12 09:55 | PCM.DC ---
Discharge Instructions Diet Discharge Diet: No restrictions Activity Discharge Activity: Return to Normal Activity Dressing / Incision Call your doctor if you observe: Fever of 101 or Higher, Inability to have a bowel movement and Uncontrolled pain Follow Up Care Please Follow Up With: PhysicianDAISY When: 1-2 weeks with urologist who performed surgery. Test Results: Test results from this visit will be discussed in further detail at your follow-up appointment, if applicable. Discharge Plan Admission Admit Date/Time: 07/09/21 18:17 Primary Reason for Your Visit: Intractable Nausea and Vomiting Attending Provider: Adelita Johansen Consulting Providers: Cate Vanegas Discharge Orders/Prescriptions Prescriptions: New acetaminophen [Tylenol] 325 mg Tablet 650 mg PO Q4H PRN PRN (Reason: Fever, pain -06/16) Qty: 0 RF: 0 famotidine 20 mg Tablet 20 mg PO BID 30 Days Qty: 60 RF: 0 diphenhydramine HCl [Banophen] 25 mg Capsule 25 mg PO Q6H PRN PRN (Reason: Itching) Qty: 0 RF: 0 lisinopril 10 mg Tablet 10 mg PO DAILY 30 Days Qty: 30 RF: 0 levofloxacin 750 mg tablet 750 mg PO DAILY Qty: 3 RF: 0 ondansetron 4 mg tablet,disintegrating 4 mg PO Q8H PRN (Reason: nausea and vomiting) Qty: 15 RF: 0 Discontinued pantoprazole 40 mg tablet,delayed release (DR/EC) 40 mg PO DAILY RF: 0 ciprofloxacin HCl [Cipro] 500 mg tablet 500 mg PO Q12H Qty: 14 RF: 0 hydroxyzine pamoate [Vistaril] 25 mg capsule 25 mg PO Q6H PRN (Reason: itching) Qty: 20 RF: 0 Referrals / Follow Up: Henry,INDRANEEL [Other] Henry,INDRANEEL [Other] Disposition Disposition (needs filled in before D/C Order can be placed): Home, Self Care
--- NOTE | 2021-07-12 10:04 | PCM.DC.SUM ---
Documented by User: JONY Bronson 07/12/21 10:10 Providers Date of Admission: 07/09/21 Primary Care Physician: EDWIGE Henry Consultations 07/09/21 18:30 Consult: Urology Routine Consulting Provider: Cate Vanegas Reason for Consult: Intractable nausea and vomiting with UTI EMERGENT Consult: No MD Notified: Yes Date Notified: 07/09/21 Time Notified: 18:30 Method of Notification: Verbal Reason For Visit: INTRACTABLE NAUSEA AND VOMITING Diagnosis Discharge Diagnosis (1) Intractable abdominal pain: Status: Acute Code(s): R10.9 - Unspecified abdominal pain (2) Intractable nausea and vomiting: Status: Acute Code(s): R11.2 - Nausea with vomiting, unspecified Medications at Discharge Home Medications acetaminophen [Tylenol] 650 mg PO Q4H PRN PRN #0 tab 07/12/21 diphenhydramine HCl [Banophen] 25 mg PO Q6H PRN PRN #0 cap 07/12/21 famotidine 20 mg PO BID 30 Days #60 tab 07/12/21 levofloxacin 750 mg PO DAILY #3 tab 07/12/21 lisinopril 10 mg PO DAILY 30 Days #30 tab 07/12/21 ondansetron 4 mg PO Q8H PRN #15 tab 07/12/21 Hospital Course Operations None Procedures None Summary of Care Provided Minutes Spent on Discharge: 20 Hospital Course: Patient admitted on 07/09/2021 for intractable nausea and vomiting and abdominal pain. Patient had a total hysterectomy in December due to endometrial cancer and at that time had a ureteral stent placed due to injury during surgery. 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 Patient received IV antibiotics and IV antiemetics throughout her stay. Patient will be discharged on p.o. Levaquin as well as p.o. Zofran. Patient also diagnosed with hypertension during this admission and was initiated on lisinopril which she will be discharged home with as well. Physical Exam Const alert, oriented x3 and no apparent distress HEENT head/scalp atraumatic Eyes conjunctivae normal and no scleral icterus Neck full ROM and supple Resp normal respiratory effort, normal air movement and clear to auscultation bilaterally Effort and Inspection: able to speak in complete sentences and symmetric chest movement Cardio regular rate, regular rhythm, S1 normal heart sound and S2 normal heart sound GI normal to inspection, nondistended, normoactive bowel sounds, soft to palpation and non-tender Extremity normal to inspection, full ROM and no clubbing, cyanosis or edema Skin no rashes or lesions noted, no wounds and skin turgor normal Neuro oriented x3, moves all extremities, no focal motor deficits and no sensory deficits noted Sensorium / Orientation: awake and alert Speech: speech normal Psych Mood & Affect: flat affect Weight / BMI Weight Weight: 191 lb 12.835 oz Body Mass Index (BMI) 28.1 ABG / Lab / Microbiology Data Result Diagrams: 07/12/21 05:30 07/12/21 05:30 Laboratory: Laboratory Results - last 24 hr 07/11/21 11:37: Urine Opiates Screen POSITIVE H, Urine Methadone Screen NEGATIVE, Ur Barbiturates Screen NEGATIVE, Ur Phencyclidine Scrn NEGATIVE, Ur Amphetamines Screen NEGATIVE, U Methamphetamin-MDMA NEGATIVE, U Benzodiazepines Scrn NEGATIVE, Urine Cocaine Screen NEGATIVE, U Cannabinoids Screen NEGATIVE, Ur Drug Screen Comment 07/12/21 05:30: WBC 6.1, RBC 3.98 L, Hgb 9.5 L, Hct 31.1 L, MCV 78.1 L, MCH 23.9 L, MCHC 30.5 L, RDW Std Deviation 49.1 H, RDW Coeff of Roz 17.2 H, Plt Count 271, MPV 8.3, Immature Gran % (Auto) 0.300, Neut % (Auto) 63.1, Lymph % (Auto) 26.9, Boundary % (Auto) 6.8, Eos % (Auto) 2.6, Baso % (Auto) 0.3, Absolute Neuts (auto) 3.9, Absolute Lymphs (auto) 1.65, Nucleated RBC % 0 07/12/21 05:30: Sodium 140, Potassium 3.3 L, Chloride 107, Carbon Dioxide 28.0, Anion Gap 5, BUN 6 L, Creatinine 0.67, Estim Creat Clear Calc 138.81, Est GFR (MDRD) Af Amer 142, Est GFR (MDRD) Non-Af 117, BUN/Creatinine Ratio 8.9 L, Glucose 79, Calcium 8.3 L Microbiology: Microbiology 07/09/21 14:39 Blood Culture (Wb) - Anticubital Left Blood Culture - Preliminary No growth in 48 hours. 07/09/21 14:39 Blood Culture (Wb) - Line Draw Blood Culture - Preliminary No growth in 48 hours. D/C Instructions Discharge Diet: No restrictions Call your doctor if you observe: Fever of 101 or Higher, Inability to have a bowel movement and Uncontrolled pain Please Follow Up With: Physician,CC When: 1-2 weeks with urologist who performed surgery. Meaningful Use Info Meaningful Use Diagnoses (Choose all that apply): None applicable Discharge Plan Admission Admit Date/Time: 07/09/21 18:17 Primary Reason for Your Visit: Intractable Nausea and Vomiting Attending Provider: Adelita Johansen Consulting Providers: Cate Vanegas Discharge Orders/Prescriptions Prescriptions: New acetaminophen [Tylenol] 325 mg Tablet 650 mg PO Q4H PRN PRN (Reason: Fever, pain 1-06/16) Qty: 0 RF: 0 famotidine 20 mg Tablet 20 mg PO BID 30 Days Qty: 60 RF: 0 diphenhydramine HCl [Banophen] 25 mg Capsule 25 mg PO Q6H PRN PRN (Reason: Itching) Qty: 0 RF: 0 lisinopril 10 mg Tablet 10 mg PO DAILY 30 Days Qty: 30 RF: 0 levofloxacin 750 mg tablet 750 mg PO DAILY Qty: 3 RF: 0 ondansetron 4 mg tablet,disintegrating 4 mg PO Q8H PRN (Reason: nausea and vomiting) Qty: 15 RF: 0 Discontinued pantoprazole 40 mg tablet,delayed release (DR/EC) 40 mg PO DAILY RF: 0 ciprofloxacin HCl [Cipro] 500 mg tablet 500 mg PO Q12H Qty: 14 RF: 0 hydroxyzine pamoate [Vistaril] 25 mg capsule 25 mg PO Q6H PRN (Reason: itching) Qty: 20 RF: 0 Referrals / Follow Up: Henry,INDRANEEL [Other] Henry,INDRANEEL [Other] Disposition Disposition (needs filled in before D/C Order can be placed): Home, Self Care Documented by User: Dr. Adelita Johansen MD 07/12/21 16:42 Providers Date of Admission: 07/09/21 Reason For Visit: INTRACTABLE NAUSEA AND VOMITING Medications at Discharge Home Medications acetaminophen [Tylenol] 650 mg PO Q4H PRN PRN #0 tab 07/12/21 diphenhydramine HCl [Banophen] 25 mg PO Q6H PRN PRN #0 cap 07/12/21 famotidine 20 mg PO BID 30 Days #60 tab 07/12/21 levofloxacin 750 mg PO DAILY #3 tab 07/12/21 lisinopril 10 mg PO DAILY 30 Days #30 tab 07/12/21 ondansetron 4 mg PO Q8H PRN #15 tab 07/12/21 ABG / Lab / Microbiology Data Result Diagrams: 07/12/21 05:30 07/12/21 05:30 Discharge Plan Admission Admit Date/Time: 07/09/21 18:17 Primary Reason for Your Visit: Intractable Nausea and Vomiting Attending Provider: Adelita Johansen Consulting Providers: aCte Vanegas Discharge Orders/Prescriptions Prescriptions: New acetaminophen [Tylenol] 325 mg Tablet 650 mg PO Q4H PRN PRN (Reason: Fever, pain 1-10) Qty: 0 RF: 0 famotidine 20 mg Tablet 20 mg PO BID 30 Days Qty: 60 RF: 0 diphenhydramine HCl [Banophen] 25 mg Capsule 25 mg PO Q6H PRN PRN (Reason: Itching) Qty: 0 RF: 0 lisinopril 10 mg Tablet 10 mg PO DAILY 30 Days Qty: 30 RF: 0 levofloxacin 750 mg tablet 750 mg PO DAILY Qty: 3 RF: 0 ondansetron 4 mg tablet,disintegrating 4 mg PO Q8H PRN (Reason: nausea and vomiting) Qty: 15 RF: 0 Discontinued pantoprazole 40 mg tablet,delayed release (DR/EC) 40 mg PO DAILY RF: 0 ciprofloxacin HCl [Cipro] 500 mg tablet 500 mg PO Q12H Qty: 14 RF: 0 hydroxyzine pamoate [Vistaril] 25 mg capsule 25 mg PO Q6H PRN (Reason: itching) Qty: 20 RF: 0 Referrals / Follow Up: Henry,INDRANEEL [Other] Henry,INDRANEEL [Other] Disposition Disposition (needs filled in before D/C Order can be placed): Home, Self Care Charges/Coding Addendum Addendum: Patient seen by Shan BORGES under my supervision Patient is a 21 y/o with a pMH as outlined which includes a history of endometrial cancer s/p hysterectomy. She was admitted with a complaint of intractable nausea and vomiting. She had been previously diagnosed with a UTI and started on macrobid. However, her symptoms didnt improve, so she came back to the ED. During her hysterectomy, she had a ureteral injury which required a stent. She was noted to be febrile as well. She was admitted and managed for UTI. UA done from previous visit the day before admission showed evidence of UTI. Urine culture grew Staph aureus. CT abdomen and pelvis showed a left sided J stent catheter which remains stable and unchanged, with mild hydronephrosis. She was started on IV vancomycin. Urine cultures grew Staph epidermidis. Urology was consulted and recommended that she follows up with her urologist at [facility]. She remained stable and was discharged on PO levaquin and PO zofran. She was also noted to have elevated BP during this admission, and so was initiated on PO lisinopril. She is to follow up with her PCP and urologist. Patient seen and examined prior to discharge. She felt much better and had no complaints. Review of systems was otherwise negative. Labs and vitals reviewed. Home meds reviewed and reconciled. O/E: Const alert, oriented x3 and no apparent distress HEENT head/scalp atraumatic Eyes conjunctivae normal and no scleral icterus Neck full ROM and supple Resp normal respiratory effort, normal air movement and clear to auscultation bilaterally Effort and Inspection: able to speak in complete sentences and symmetric chest movement Cardio regular rate, regular rhythm, S1 normal heart sound and S2 normal heart sound GI normal to inspection, nondistended, normoactive bowel sounds, soft to palpation and non-tender Extremity normal to inspection, full ROM and no clubbing, cyanosis or edema Skin no rashes or lesions noted, no wounds and skin turgor normal Neuro oriented x3, moves all extremities, no focal motor deficits and no sensory deficits noted Sensorium / Orientation: awake and alert Speech: speech normal Psych Mood & Affect: normal affect Plan is for discharge home today. Rest as per Meli Madrid PROTECTIVE SIGNAL SUPERINTENDENT-C's note, which I have reviewed and endorsed. Visit Charges Inpatient E&M: 27532 Disch Hosp
[2021-07-12] MEDS: Acetaminophen 325 MG Tablet 650 MG PO (14:03)
[2021-07-12 14:42] VITALS: BP 128/99; PULSE 103; RESP 18; TEMP 36.1; O2SAT 98
--- NOTE | 2021-07-15 09:34 | CON.PCM_ITS ---
Assessment & Plan Assessment/Plan (1) Intractable nausea and vomiting: (2) Retained ureteral stent: (3) Hydronephrosis: PLAN: to OR today for cystoscopoy, left ureteral stent change, possible left ureteroscopy Informed consent was obtained. she has no uterus. recent urine culture with staph, was treated with levaquin HPI Consult Data Date of Consult: 07/15/21 HPI Narrative HPI Narrative: ADDIS TORRES, is a 21 F who presents [facility] Medical History (Updated 07/15/21 @ 09:[address] Cate Vanegas MD) Alcohol abuse Cancer Depression Endometrial cancer Hydronephrosis Hypertension Menorrhagia Non-smoker Retained ureteral stent Ureter injury Home Medications acetaminophen [Tylenol] 650 mg PO Q4H PRN PRN #0 tab 07/12/21 [Rx Last Taken Unknown] diphenhydramine HCl [Banophen] 25 mg PO Q6H PRN PRN #0 cap 07/12/21 [Rx Last Taken Unknown] famotidine 20 mg PO BID 30 Days #60 tab 07/12/21 [Rx Last Taken Unknown] levofloxacin 750 mg PO DAILY #3 tab 07/12/21 [Rx Last Taken Unknown] lisinopril 10 mg PO DAILY 30 Days #30 tab 07/12/21 [Rx Last Taken Unknown] ondansetron 4 mg PO Q8H PRN #15 tab 07/12/21 [Rx Last Taken Unknown] Allergy/AdvReac Type Severity Reaction Status Date / Time ceftriaxone [From Rocephin] Allergy Hives Verified 07/12/21 19:40 promethazine [From Phenergan] Allergy Vomiting Verified 07/12/21 19:40 Family History Father No problems noted. Mother No problems noted. Surgical History History of hysterectomy for cancer History of renal stent Social History household members: family Smoking Status: Never smoker alcohol intake: former substance use type: does not use Lab / Micro Data Result Diagrams: 07/12/21 05:30 07/12/21 05:30 Micro: Microbiology 07/09/21 14:39 Blood Culture (Wb) - Anticubital Left Blood Culture - Final No growth in 5 days. 07/09/21 14:39 Blood Culture (Wb) - Line Draw Blood Culture - Final No growth in 5 days.
== END 2021-07-12 14:45 | disposition home or self-care (01) | DRG 463 ==
LOC: ED 17:24 → MS2 18:26
PROVIDERS: Nurse Practitioner Family; Physician Assistant; Admitting Provider Family Medicine; Emergency Provider Emergency Medicine; Visit Provider Student in an Organized Health Care Education/Training Program
DX: N30.00 Acute cystitis without hematuria (principal); B95.7 Other staphylococcus as the cause of diseases classified elsewhere; N13.30 Unspecified hydronephrosis; R11.2 Nausea with vomiting, unspecified; Z91.19 Patient's noncompliance with other medical treatment and regimen; I10 Essential (primary) hypertension; F32.A Depression, unspecified; F41.9 Anxiety disorder, unspecified; K21.9 Gastro-esophageal reflux disease without esophagitis; Z96.0 Presence of urogenital implants; Z85.42 Personal history of malignant neoplasm of other parts of uterus; Z90.710 Acquired absence of both cervix and uterus; Z79.899 Other long term (current) drug therapy
CPT/HCPCS: 36415; 74177; 80048; 80053; 80076; 80202; 80307; 81001; 83605; 83735; 84100; 85025; 87040; 87077; 87086; 87088; 87186; 96361; 96374; 96375; 96376; 97802; 99285; 99406; J7030; J7040; J7050; Q9967; A4216; J2405

== ENCOUNTER 2021-07-12 19:39 | Inpatient (IN) | payer MEDICAID, SELFPAY ==
[2021-07-12 19:40] VITALS: BP 147/99; PULSE 94; RESP 18; TEMP 36.1; O2SAT 100; BMI 27.8
[2021-07-12 21:32] LABS: Anion Gap 7 (5-15); BUN 5 mg/dL (7-18); BUN/Creat Ratio 6.7 RATIO (10-20); Calcium,Total 9.4 mg/dL (8.5-10.1); Chloride 102 mmol/L (98-107); Creatinine, Serum 0.74 mg/dL (0.55-1.02); EST Glomerular Filtration Rate 105 mL/min (>60); Est Glom Filt Rate - Afr Amer 127 mL/min (>60); Estimated Creatinine Clearance 125.68 ml/min; Glucose 98 mg/dL (74-106); Potassium 5.3 mmol/L (3.5-5.1); Sodium Level 134 mmol/L (136-145)
--- NOTE | 2021-07-12 21:45 | RAD_ITS ---
STUDY: X-RAY CHEST REASON FOR EXAM: Female, 21 years old. central line placement TECHNIQUE: Frontal portable view of the chest COMPARISON: 10 February 2021 FINDINGS: There is a right internal jugular central venous catheter in place to meeting with its tip in the lower SVC. The lungs are clear and expanded. There is no demonstrated pleural abnormality. Normal size heart. Normal mediastinum and hollis. Normal visualized pulmonary arteries. Normal visualized aortic arch and descending thoracic aorta. Normal visualized thoracic spine. Normal visualized ribs, clavicles, and shoulders. There is no demonstrated abnormality of the visualized soft tissue structures of the upper abdomen. RAD/Chest 1 View (Portable) IMPRESSION: Normal x-ray examination of the chest. No pneumothorax. Right IJ with tip in the lower SVC. Electronically Signed: Raven Gonzalez MD at 22:00 EDT Tel , Service support ,
--- NOTE | 2021-07-12 22:16 | EX.ED.DYSGE1 ---
HPI <Dr. Jamey Henriquez MD - Last Filed: 07/12/21 23:10> History of Present Illness Chief Complaint: Nausea/Vomiting Informant: patient and spouse/S.O. Onset/Context/Timing Onset: Hours Context: Sudden Onset Timing: Continuous and Waxes and wanes Quality: Nausea with vomiting Location: GI epigastric Current Severity: Moderate Maximum Severity: Moderate Worsened by: Unknown Relieved by: Nothing Associated Symptoms Associated Symptoms: Dry mouth Narrative Narrative: Patient is a 21-year-old female who was discharged from the hospital at 1430. She was admitted for abdominal pain and intractable nausea and vomiting. The etiology of the abdominal pain and intractable nausea vomiting is unknown. The patient and her significant other states she has had problems since hysterectomy that was complicated by injury to the bladder. During her most recent hospitalization stents were placed. Significant other states she had a urinary tract infection. She denies fever, chills night sweats. She denies headache, visual, ocular auditory symptoms. She denies cardiac respiratory symptoms. She denies dysuria, frequency, urgency or hematuria. She denies rash. Prior similar symptoms: Yes Recent Illness/Hospitalization: Yes PFSH <Dr. Jamey Henriquez MD - Last Filed: 07/12/21 23:10> [facility] Medical History Alcohol abuse Cancer Depression Endometrial cancer Menorrhagia Non-smoker Ureter injury Home Medications acetaminophen [Tylenol] 650 mg PO Q4H PRN PRN #0 tab 07/12/21 [Rx Last Taken Unknown] diphenhydramine HCl [Banophen] 25 mg PO Q6H PRN PRN #0 cap 07/12/21 [Rx Last Taken Unknown] famotidine 20 mg PO BID 30 Days #60 tab 07/12/21 [Rx Last Taken Unknown] levofloxacin 750 mg PO DAILY #3 tab 07/12/21 [Rx Last Taken Unknown] lisinopril 10 mg PO DAILY 30 Days #30 tab 07/12/21 [Rx Last Taken Unknown] ondansetron 4 mg PO Q8H PRN #15 tab 07/12/21 [Rx Last Taken Unknown] Allergy/AdvReac Type Severity Reaction Status Date / Time ceftriaxone [From Rocephin] Allergy Hives Verified 07/12/21 19:40 promethazine [From Phenergan] Allergy Vomiting Verified 07/12/21 19:40 Family History Father No problems noted. Mother No problems noted. Surgical History History of hysterectomy for cancer History of renal stent Social History (Updated 07/12/21 @ 22:[address] Jamey Henriquez MD) household members: family Smoking Status: Never smoker alcohol intake: former substance use type: does not use ROS <Dr. Jamey Henriquez MD - Last Filed: 07/12/21 23:10> ROS ED Constitutional Constitutional ED: Denies chills, fever(s), subjective, sweats or weight loss Eyes Eyes: Denies blurry vision, change in vision or diplopia ENT ENT ED: Denies ear pain, rhinorrhea or sore throat Cardiovascular Cardiovascular: Denies chest pain, orthopnea, palpitations or paroxysmal nocturnal dyspnea Respiratory/Chest Respiratory/Chest: Denies cough, dyspnea, dyspnea on exertion, orthopnea or paroxysmal nocturnal dyspnea Gastrointestinal Gastrointestinal: Reports abdominal pain, nausea and vomiting; Denies constipation, diarrhea or melena Genitourinary Genitourinary ED: Denies dysuria, hematuria or urinary frequency Musculoskeletal Musculoskeletal: Denies arthralgias, myalgias or neck pain Integumentary Denies abscess, Abrasions or rash Neurologic Neurologic: Denies headache(s) or paresthesias Endocrine Endocrinology: Denies polydipsia, polyphagia or polyuria Hematologic/Lymphatic Hematologic/Lymphatic: Reports anemia, easy bleeding and easy bruising EXAM <Dr. Jamey Henriquez MD - Last Filed: 07/12/21 23:10> Physical Exam Const Vital Signs: 07/12/21 19:40 07/12/21 23:01 07/13/21 02:58 Temperature 96.9 F L Temperature Source Temporal Pulse Rate 94 104 H 99 Respiratory Rate 18 16 16 Blood Pressure 147/99 H 156/105 H 145/99 H Blood Pressure Mean 115 122 114 Pulse Ox 100 99 97 Oxygen Delivery Method Room Air Room Air Room Air Positive well nourished, well developed and obese General Appearance ED: well developed and other Patient appears pale. ; Negative for cyanotic, diaphoretic, NAD or pallor Nutritional Appearance: obese HEENT Reports TM's clear and dry mucous membranes Negative for trauma or tenderness Tympanic Membrane ED: Yes TM's clear Mouth ED: Yes dry mucous membranes Mouth: dry mucous membranes Eyes PERRL and EOMs intact bilaterally General Eye ED: Negative for pale conjunctiva or scleral icterus Neck no lymphadenopathy, supple and no JVD Chest Wall palpation of chest normal Resp normal respiratory effort and clear to auscultation bilaterally Cardio regular rate, regular rhythm, S1 normal heart sound, S2 normal heart sound and no murmurs GI normal to inspection, nondistended, normoactive bowel sounds and non-distended; Negative for non-tender Palpation: soft and tender epigastric Back/Spine no CVA tenderness Cervical Spine: Negative for cervical spine tenderness Thoracic Spine / Upper Back: Negative for thoracic spinal tenderness or paraspinal muscle tenderness Extremity normal to inspection General Extremety ED: Negative for edema or tenderness General Extremity: Negative for edema Neuro oriented x3, CN's II-XII intact bilaterally and no sensory deficits noted Sensorium / Orientation: alert Motor Exam: strength 5/5 throughout Psych Mood & Affect: depressed Skin no rashes or lesions noted and no wounds General Skin Exam: Negative for jaundice or pallor <Dr. Moose Liu MD - Last Filed: 07/13/21 03:30> Physical Exam Const Vital Signs: 07/12/21 19:40 07/12/21 23:01 07/13/21 02:58 Temperature 96.9 F L Temperature Source Temporal Pulse Rate 94 104 H 99 Respiratory Rate 18 16 16 Blood Pressure 147/99 H 156/105 H 145/99 H Blood Pressure Mean 115 122 114 Pulse Ox 100 99 97 Oxygen Delivery Method Room Air Room Air Room Air [facility] <Dr. Jamey Henriquez MD - Last Filed: 07/12/21 23:10> [facility] Narrative Medical decision making narrative: Patient presents and vomiting. I was informed by nursing staff that they are unable to establish a peripheral IV even with use of ultrasound. Attempt was made by me to cannulate the right external jugular line vessel using ultrasound. I did visualize the Angiocath piercing the vessel however there was no return of blood. Patient gave verbal consent for central line. Right IJ was placed on first attempt. Blood was aspirated on the way out. Using Seldinger technique a 7.5 Bah[place] triple-lumen was placed. Blood was aspirated from all 3 ports. Patient tolerated the procedure well. Nurse was instructed to use the line. Apparently hospital policy contains a chest x-ray. Chest x-ray was obtained and line is in proper position with no evidence of pneumothorax. Of note during the time to place the internal jugular line and external jugular line patient had no vomiting. Cyclic vomiting order set was used. Basic metabolic panel was obtained to assess electrolytes since significant other reports continuous vomiting. Of note when I first entered the room she had vomited several times greenish-yellow appearing gastric contents with no blood or coffee grounds or food particles. Patient has received 1 hour of 4-hour infusion of Benadryl and Thorazine. She will need reassessed and a couple of hours. Lab Data Attestation: I reviewed the patient's lab results. Labs: Laboratory Results - last 24 hr 07/12/21 07/12/21 21:07 23:48 Sodium 134 L Potassium 5.3 H Chloride 102 Carbon Dioxide 25.0 Anion Gap 7 BUN 5 L Creatinine 0.74 Estim Creat Clear Calc 125.68 Est GFR (MDRD) Af Amer 127 Est GFR (MDRD) Non-Af 105 BUN/Creatinine Ratio 6.7 L Glucose 98 Calcium 9.4 Urine Color Straw Urine Clarity Clear Urine pH 8.0 Ur Specific [place] 1.015 Urine Protein 15 H Urine Glucose (UA) Normal Urine Ketones 50 H Urine Occult Blood Negative Urine Nitrite Negative Urine Bilirubin Negative Urine Urobilinogen 1 H Ur Leukocyte Esterase 25 H Urine RBC 0 SEEN Urine WBC 0-5 SEEN Ur Squamous Epith Cells 0 SEEN Urine Bacteria 0 SEEN Urine Mucus 0 SEEN Radiography Chest X-Ray - ED: 1 View, Read by ED Physician (Right internal jugular line noted in proper position without evidence of pneumothorax.), Heart, Lungs, Mediastinum, Bony Structures and No Acute Disease Diagnostic Testing: Clinical Impression(s) from Imaging Studies Chest X-Ray 07/12/21 21:45 IMPRESSION: Normal x-ray examination of the chest. No pneumothorax. Right IJ with tip in the lower SVC. Electronically Signed: Raven Gonzalez MD at 22:00 EDT Tel , Service support , <Dr. Moose Liu MD - Last Filed: 07/13/21 03:30> MDM MDM Narrative Medical decision making narrative: Patient turned over to me. She is not feeling any better after the Thorazine and continues to have episodes of vomiting. I gave her a dose of Compazine, and she is still vomiting despite that as well. Given all of this and the multiple rounds of antiemetics she has had over the course of almost 8 hours, I agree with the patient that she should not go home. She continues to have pain in her left flank where she has a double-J ureteral stent that has been present for months, I suspect to allow her injured ureter to heal. She states her urologist in [place] is Dr. Garcia. She prefers to stay here for now, discussed with hospitalist for inpatient observation and further treatment. Lab Data Labs: Laboratory Results - last 24 hr 07/12/21 07/12/21 21:07 23:48 Sodium 134 L Potassium 5.3 H Chloride 102 Carbon Dioxide 25.0 Anion Gap 7 BUN 5 L Creatinine 0.74 Estim Creat Clear Calc 125.68 Est GFR (MDRD) Af Amer 127 Est GFR (MDRD) Non-Af 105 BUN/Creatinine Ratio 6.7 L Glucose 98 Calcium 9.4 Urine Color Straw Urine Clarity Clear Urine pH 8.0 Ur Specific [place] 1.015 Urine Protein 15 H Urine Glucose (UA) Normal Urine Ketones 50 H Urine Occult Blood Negative Urine Nitrite Negative Urine Bilirubin Negative Urine Urobilinogen 1 H Ur Leukocyte Esterase 25 H Urine RBC 0 SEEN Urine WBC 0-5 SEEN Ur Squamous Epith Cells 0 SEEN Urine Bacteria 0 SEEN Urine Mucus 0 SEEN Radiography Diagnostic Testing: Clinical Impression(s) from Imaging Studies Chest X-Ray 07/12/21 21:45 IMPRESSION: Normal x-ray examination of the chest. No pneumothorax. Right IJ with tip in the lower SVC. Electronically Signed: Raven Gonzalez MD at 22:00 EDT Tel , Service support , Procedures <Dr. Jamey Henriquez MD - Last Filed: 07/12/21 23:10> Other Procedures Procedure(s): Patient gave verbal consent for central line since she she was actively vomiting and unable to sign. She was explained risk benefits. Significant other was familiar with the procedure since he has had it done twice and neither of them asked any questions. They were told the complications. Patient was prepped draped sterile manner. First attempt was unsuccessful because the needle and syringe were defective. A new syringe and needle were obtained in the right internal jugular vein was can assess fully on the way out first attempt. Blood was aspirated from all 3 ports. A 7.5 Bahamian triple-lumen was placed using Seldinger technique. X-ray obtained to confirm proper position and no evidence of pneumothorax. Discharge Plan Triage Chief Complaint: Nausea/Vomiting Other Complaint: Abd Pain ED Provider: Jamey Henriquez Dx/Rx/DC Orders Clinical Impression: Intractable vomiting with nausea, Abdominal pain Instructions: ED Vomiting (Adult) Prescriptions: No Action acetaminophen [Tylenol] 325 mg Tablet 650 mg PO Q4H PRN PRN (Reason: Fever, pain -06/16) Qty: 0 RF: 0 famotidine 20 mg Tablet 20 mg PO BID 30 Days Qty: 60 RF: 0 diphenhydramine HCl [Banophen] 25 mg Capsule 25 mg PO Q6H PRN PRN (Reason: Itching) Qty: 0 RF: 0 lisinopril 10 mg Tablet 10 mg PO DAILY 30 Days Qty: 30 RF: 0 levofloxacin 750 mg tablet 750 mg PO DAILY Qty: 3 RF: 0 ondansetron 4 mg tablet,disintegrating 4 mg PO Q8H PRN (Reason: nausea and vomiting) Qty: 15 RF: 0 Referrals: Henry,INDRANEEL [Other] - 3-5 Days Activity Restrictions/Additional Instructions: If the cause of your nausea, vomiting abdominal pain is not determined, I recommend follow-up with the outpatient mental health department affiliated with [facility] since they have helped individuals with nausea and vomiting of unknown cause. Disposition Disposition: Acute Care Hospital [facility]
[2021-07-12] MEDS: Ondansetron 4 MG/2 ML Vial IV (22:22)
[2021-07-12] MEDS: 0.9% Normal Saline 1,000 ML 1000 ML IV (22:22)
[2021-07-12] MEDS: Famotidine 200 MG/20 ML MDV 20 MG in 0.9% Normal Saline (Pres. free 8 ML 300 MG IV (22:23)
[2021-07-12] MEDS: LORazepam 2 MG/ML Syringe 0.5 MG IV (22:25)
--- NOTE | 2021-07-12 22:36 | ED.RN ---
Some swelling at IG site. Dr. Henriquez looked at x-ray and IV site and gave okay for use. PT did not vomit once during the 15 min procedure, nor did she vomit while giving IV meds. After med administration was complete, PT bagan to retch.
[2021-07-12 23:01] VITALS: BP 156/105; PULSE 104; RESP 16; O2SAT 99
[2021-07-12 23:53] LABS: Bacteria 0 SEEN /hpf (None Seen); Mucous, Urine 0 SEEN /hpf (<or=2+); Red Blood Cells-Urine 0 SEEN /hpf (0-5); Squamous Epithelial Cells - UA 0 SEEN /hpf (5-10)
[2021-07-12 23:54] LABS: Color, Urine Straw (Yellow); Glucose, Dipstick Normal (Normal); Ketone-Dipstick 50 mg/dl (Negative); Leukocyte Esterase-Dipstick 25 /ul (Negative); Nitrite-Dipstick Negative (Negative); Occult Blood-Urine Negative /ul (Negative); Protein-Dipstick 15 mg/dl (Negative); Specific Gravity, Urine 1.015 (1.002-1.030); Urine Bilirubin Dipstick Negative (Negative); Urine Clarity Clear (Clear); Urine Urobilinogen 1 mg/dl (Normal)
[2021-07-13] VITALS (7 sets, daily range): BP systolic 136–180; BP diastolic 67–115; PULSE 90–104; RESP 16–18; TEMP 36.1–37.2; O2SAT 96–99; BMI 26.2
[2021-07-13] MEDS: 0.9% Normal Saline 1,000 ML 250 ML IV
[2021-07-13 00:02] LABS: White Blood Cells 0-5 SEEN /hpf (0-5)
--- NOTE | 2021-07-13 01:06 | ED.RN ---
ATTEMPTED PO CHALLENGE. PT TOOK THE SMALLEST OF SIPS, GAGGED AND THEN REFUSED MORE WATER OR ICE CHIPS. MD AWARE. PT WAS ASLEEP WHEN RN WENT INTO ROOM AND THEN IMMEDIATELY FELL BACK TO SLEEP. S/O ASLEEP AT BEDSIDE.
[2021-07-13] MEDS: proCHLORPERazine 10 MG/2 ML Vial 5 MG IV (01:48)
--- NOTE | 2021-07-13 02:58 | ED.RN ---
PT DOESN'T FEEL LIKE SHE IS WELL ENOUGH TO GO HOME. MD AWARE.
--- NOTE | 2021-07-13 05:11 | HP.PCM.HOS_ITS ---
HPI - General General Date of Admission: 07/13/21 Date of Service: 07/13/21 Chief Complaint: N/V HPI Narrative ADDIS TORRES, is a 21 F who presents who was just discharged on the fifth with nausea and vomiting. Patient when she was discharged, stated that she was feeling well. Presented to the emergency room for evaluation and work-up was pretty unremarkable. Potassium was low but was hemolyzed. Urinalysis was unremarkable patient unable to keep anything down. Boyfriend, who is in the room and states that all of his nausea vomiting began after hysterectomy and then her ureteral stents. Patient did have a stent changed and that did not seem to alleviate her symptoms. Up to the patient that if she wants urologic evaluation, she was seen by urology here who deferred to urology team in [place], she would need to let us know now. So she said she would want transferred. I let the ER physician know that if he reached out urology service at [facility] who states that the patient has been appears advised to have a nephrostomy tube but followed up they said that they would see here but on an outpatient basis as there is no urgent need for stent removal. [facility]LY [facility] Medical History Alcohol abuse Cancer Depression Endometrial cancer Menorrhagia Non-smoker Ureter injury Home Medications acetaminophen [Tylenol] 650 mg PO Q4H PRN PRN #0 tab 07/12/21 [Rx Last Taken Unknown] diphenhydramine HCl [Banophen] 25 mg PO Q6H PRN PRN #0 cap 07/12/21 [Rx Last Taken Unknown] famotidine 20 mg PO BID 30 Days #60 tab 07/12/21 [Rx Last Taken Unknown] levofloxacin 750 mg PO DAILY #3 tab 07/12/21 [Rx Last Taken Unknown] lisinopril 10 mg PO DAILY 30 Days #30 tab 07/12/21 [Rx Last Taken Unknown] ondansetron 4 mg PO Q8H PRN #15 tab 07/12/21 [Rx Last Taken Unknown] Allergy/AdvReac Type Severity Reaction Status Date / Time ceftriaxone [From Rocephin] Allergy Hives Verified 07/12/21 19:40 promethazine [From Phenergan] Allergy Vomiting Verified 07/12/21 19:40 Family History Father No problems noted. Mother No problems noted. Surgical History History of hysterectomy for cancer History of renal stent Social History household members: family Smoking Status: Never smoker alcohol intake: former substance use type: does not use ROS ROS Narrative Abdominal pain. No hematuria. Has not had regular bowel movements in 3 weeks but does have small bowel movements. Vital Signs Vital Signs Vital Signs: 07/12/21 19:40 07/12/21 23:01 07/13/21 02:58 Temperature 36.1 C L Temperature Source Temporal Pulse Rate 94 104 H 99 Respiratory Rate 18 16 16 Blood Pressure 147/99 H 156/105 H 145/99 H Blood Pressure Mean 115 122 114 Pulse Ox 100 99 97 Oxygen Delivery Method Room Air Room Air Room Air 07/13/21 03:41 Temperature 36.1 C L Temperature Source Temporal Pulse Rate 99 Respiratory Rate 16 Blood Pressure 145/99 H Blood Pressure Mean 114 Pulse Ox 97 Oxygen Delivery Method Room Air Weight Weight: 85.729 kg Body Mass Index (BMI) 27.8 Physical Exam Const alert General Appearance: cooperative HEENT normocephalic and head/scalp atraumatic HEENT Narrative: Mucous membranes moist Eyes Eyes Narrative: No icterus Resp normal respiratory effort, no retractions and no use of accessory muscles Cardio regular rate, regular rhythm, S1 normal heart sound and S2 normal heart sound GI GI Narrative: Nondistended. Mild umbilical tenderness. No hernias Extremity normal to inspection Skin no rashes or lesions noted Neuro Sensorium / Orientation: awake and alert Psych Psych Narrative: Flat affect Results Lab / Micro Data Result Diagrams: 07/12/21 21:07 07/12/21 21:07 Labs: Laboratory Results - last 24 hr 07/12/21 21:07: Sodium 134 L, Potassium 5.3 H, Chloride 102, Carbon Dioxide 25.0, Anion Gap 7, BUN 5 L, Creatinine 0.74, Estim Creat Clear Calc 125.68, Est GFR (MDRD) Af Amer 127, Est GFR (MDRD) Non-Af 105, BUN/Creatinine Ratio 6.7 L, Glucose 98, Calcium 9.4 07/12/21 23:48: Urine Color Straw, Urine Clarity Clear, Urine pH 8.0, Ur Specific [place] 1.015, Urine Protein 15 H, Urine Glucose (UA) Normal, Urine Ketones 50 H, Urine Occult Blood Negative, Urine Nitrite Negative, Urine Bi lirubin Negative, Urine Urobilinogen 1 H, Ur Leukocyte Esterase 25 H, Urine RBC 0 SEEN, Urine WBC 0-5 SEEN, Ur Squamous Epith Cells 0 SEEN, Urine Bacteria 0 SEEN, Urine Mucus 0 SEEN Radiology Impression Chest X-Ray 07/12/21 21:45 IMPRESSION: Normal x-ray examination of the chest. No pneumothorax. Right IJ with tip in the lower SVC. Electronically Signed: Raven Gonzalez MD at 22:00 EDT Tel , Service support , Assessment & Plan Assessment/Plan (1) Intractable vomiting with nausea: PLAN: 1. Intractable nausea and vomiting * This is been ongoing for several months. Patient and boyfriend seem to attribute this pain stent which it certainly could but it appears stable. * I have more concerned about this possibly being psychosomatic given that patient had a hysterectomy and complications with the surgery. Other po ssibilities could be cyclic vomiting syndrome. * Patient was discharged with the levofloxacin for staph epidermidis in her urine. Think is related with the levofloxacin but after reviewing her urinaly sis from that admission clear to me that she had a UTI. So I will discontinue the levofloxacin. * She still has ongoing issues good severe gastroenterology evaluation or start her on 25 mg topiramate in case this is cyclic vomiting syndrome. 2. Left ureteral stent * Due to nicking of the ureter. * Patient will follow up with [facility] urology as outpatient * It appears that patient has not been compliant with follow-ups 3. Endometrial cancer * Follow-up with gynecology. * As above patient has previously not been compliant with follow-ups 4. VTE prophylaxis: Low risk. Charges/Coding Visit Charges OBSV E&M: 80482 Initial observation care L2
--- NOTE | 2021-07-13 05:12 | PCS.PANDOC ---
PANDEMIC DOCUMENTATION INITIATED: Date: 07/13/2021 Time: 510
[2021-07-13] MEDS: 0.9% Normal Saline 1,000 ML 150 ML IV ×3 (05:57→21:21)
[2021-07-13] MEDS: Acetaminophen 325 MG Tablet 650 MG PO (05:59)
[2021-07-13] MEDS: 0.9% Saline Lock 10 ML Syringe IV ×4 (06:02→19:02)
[2021-07-13 08:50] LABS: Anion Gap 6 (5-15); BUN 3 mg/dL (7-18); BUN/Creat Ratio 4.6 RATIO (10-20); Calcium,Total 8.9 mg/dL (8.5-10.1); Chloride 101 mmol/L (98-107); Creatinine, Serum 0.66 mg/dL (0.55-1.02); EST Glomerular Filtration Rate 120 mL/min (>60); Est Glom Filt Rate - Afr Amer 146 mL/min (>60); Estimated Creatinine Clearance 140.91 ml/min; Glucose 107 mg/dL (74-106); Potassium 3.5 mmol/L (3.5-5.1); Sodium Level 133 mmol/L (136-145)
[2021-07-13] MEDS: Ondansetron 4 MG/2 ML Vial IV ×2 (08:51→19:02)
--- NOTE | 2021-07-13 11:59 | PCM.PN.HOSP ---
Documented by User: JONY Bronson 07/13/21 12:13 Subjective Subjective Patient seen and examined. Patient is laying in bed no distress noted patient states that she is continuing to have emesis and recently had approximately 200 mL of dark green emesis. Patient states that currently she is tired but not feeling nauseated. Objective Data Objective Data Vital Signs: Vital Signs Temp Pulse Resp BP Pulse Ox 98.3 F 102 H 16 136/79 H 96 07/13/21 08:56 07/13/21 08:59 07/13/21 08:56 07/13/21 08:56 07/13/21 08:59 Oxygen Delivery Method Room Air Weight: 177 lb 15.984 oz Body Mass Index (BMI) 26.2 Intake & Output: Intake and Output for Last 24 Hours 07/11/21 07/12/21 07/13/21 23:59 23:59 23:59 Intake Total 61.5 / 1061.5 1999 Balance 61.5 / 1061.5 1999 Lab / Micro Data Result Diagrams: 07/13/21 08:08 07/13/21 08:08 Labs: Laboratory Results - last 24 hr 07/12/21 21:07: Sodium 134 L, Potassium 5.3 H, Chloride 102, Carbon Dioxide 25.0, Anion Gap 7, BUN 5 L, Creatinine 0.74, Estim Creat Clear Calc 125.68, Est GFR (MDRD) Af Amer 127, Est GFR (MDRD) Non-Af 105, BUN/Creatinine Ratio 6.7 L, Glucose 98, Calcium 9.4 07/12/21 23:48: Urine Color Straw, Urine Clarity Clear, Urine pH 8.0, Ur Specific [place] 1.015, Urine Protein 15 H, Urine Glucose (UA) Normal, Urine Ketones 50 H, Urine Occult Blood Negative, Urine Nitrite Negative, Urine Bilirubin Negative, Urine Urobilinogen 1 H, Ur Leukocyte Esterase 25 H, Urine RBC 0 SEEN, Urine WBC 0-5 SEEN, Ur Squamous Epith Cells 0 SEEN, Urine Bacteria 0 SEEN, Urine Mucus 0 SEEN 07/13/21 08:08: Sodium 133 L, Potassium 3.5, Chloride 101, Carbon Dioxide 26.0, Anion Gap 6, BUN 3 L, Creatinine 0.66, Estim Creat Clear Calc 140.91, Est GFR (MDRD) Af Amer 146, Est GFR (MDRD) Non-Af 120, BUN/Creatinine Ratio 4.6 L, Glucose 107 H, Calcium 8.9 Radiography Diagnostic Testing: Radiology Impression Chest X-Ray 07/12/21 21:45 IMPRESSION: Normal x-ray examination of the chest. No pneumothorax. Right IJ with tip in the lower SVC. Electronically Signed: Raven Gonzalez MD at 22:00 EDT Tel , Service support , Physical Exam Const alert, oriented x3 and no apparent distress General Appearance: cooperative HEENT normocephalic and head/scalp atraumatic Head and Scalp: normocephalic Eyes conjunctivae normal and no scleral icterus Neck full ROM and supple Resp normal respiratory effort, normal air movement and clear to auscultation bilaterally Cardio regular rate, regular rhythm, S1 normal heart sound and S2 normal heart sound GI soft to palpation and non-distended Palpation: tender periumbilical Extremity normal to inspection, full ROM and normal capillary refill Skin no rashes or lesions noted and skin turgor normal Neuro oriented x3, moves all extremities, no focal motor deficits and no sensory deficits noted Sensorium / Orientation: awake and alert Psych mental status grossly normal, thought process normal and cooperative Psych Narrative: Flat affect Assessment & Plan Assessment/Plan (1) Intractable vomiting: QUALIFIERS: Nausea presence: with nausea Vomiting type: unspecified Qualified Code(s): R11.2 - Nausea with vomiting, unspecified (2) Intractable abdominal pain: PLAN: 1. Intractable nausea and vomiting -Nausea and vomiting continues patient had 1 dose of Zofran this a.m. with mild improvement -Vital signs stable, afebrile -Continue IV Zofran and p.o. Pepcid 2. Endometrial cancer -Patient had total hysterectomy completed in December 2019 and received a ureteral stent secondary to complications from that surgery. Patient has not followed up with boiler attendant or urologist after surgery -Case discussed with urologist at [facility] by ER physician who did not believe symptoms are related to surgical intervention that patient needs to follow-up outpatient. 3. Hypertension -Continue lisinopril -continue as needed hydralazine DVT prophylaxis-SCDs This patient was seen by JONY Bronson under the supervision of Dr. Johansen. Documented by User: Dr. Adelita Johansen MD 07/13/21 17:35 Objective Data Lab / Micro Data Result Diagrams: 07/13/21 08:08 07/13/21 08:08 Charges/Coding Addendum Addendum: Patient seen by Meli BORGES under my supervision Patient seen and examined. She is a 21-year-old female who was just discharged yesterday after being admitted and managed for UTI and incessant nausea and vomiting. She went home and said she felt better but subsequently had nausea and vomiting recurred so she came back to the ED. She still complains of nausea and vomiting. She denies any marijuana use. She denies any burning with urination. Review of systems otherwise negative. She has remained hemodynamically stable. O/E: Plan is to continue gentle hydration with IVF. Levofloxacin was stopped at time of admission. Urine tox negative for cannabinoids and positive for opiates but patient had been on opiates whilst in the hospital so this likely explains it. Continue IV Zofran. Plan right now is for supportive care. Patient counseled that she will need to follow-up with a urologist at [facility] to evaluate the ureteral stent that was placed after kidney damage during hysterectomy for endometrial cancer. Rest as per Meli BORGES's note, which I have reviewed and endorsed. Visit Charges Inpatient E&M: 44476 Subs Hosp L2
[2021-07-13] MEDS: Famotidine 20 MG Tablet PO (12:46)
[2021-07-13] MEDS: ChlorproMAZINE 50 MG/2 ML Ampul 25 MG IM ×2 (16:54→21:17)
[2021-07-13] MEDS: DiphenhydrAMINE 50 MG/ML Syringe 25 MG IV (16:59)
--- NOTE | 2021-07-13 17:45 | RAD_ITS ---
STUDY: X-RAY CHEST REASON FOR EXAM: Female, 21 years old. RIJ placement TECHNIQUE: Frontal portable view of the chest COMPARISON: 12 July 2021 FINDINGS: Appearance is stable since prior. Right internal jugular central venous catheter terminates with its tip in the lower SVC. The lungs are clear and expanded. There is no demonstrated pleural abnormality. Normal size heart. Normal mediastinum and hollis. Normal visualized pulmonary arteries. Normal visualized aortic arch and descending thoracic aorta. Normal visualized thoracic spine. Normal visualized ribs, clavicles, and shoulders. There is no demonstrated abnormality of the visualized soft tissue structures of the upper abdomen. RAD/Chest 1 View (Portable) IMPRESSION: No acute disease. Stable since prior. Right IJ with tip in the lower SVC. Electronically Signed: Raven Gonzalez MD at 19:11 EDT Tel , Service support ,
--- NOTE | 2021-07-13 19:25 | CASEMGMT ---
SOCIAL WORK Referral Source: CM Reason for Consult: History of depression, anxiety, alcohol use Met with patient in room. Patient laying in bed with emesis bag to face. Patient reports lives home alone. Patient reports history of anxiety and depression and states is prescribed medication. Patient states may be open to counseling. Patient denies any history of substance abuse. Patient reports plan for home as before. Patient states not feeling well and kept answers to questions brief. Patient states would be open to talking more when feeling better. SW to follow up on Thursday by visit or phone call. Plan: Home DIAMOND Gallagher, [employer]
[2021-07-13] MEDS: Famotidine 200 MG/20 ML MDV 20 MG in 0.9% Normal Saline (Pres. free 8 ML 300 MG IV (21:21)
--- NOTE | 2021-07-13 22:50 | RAD_ITS ---
STUDY: X-RAY - ABDOMEN/PELVIS REASON FOR EXAM: Female, 21 years old. n/v, abdominal pain TECHNIQUE: KUB COMPARISON: None. FINDINGS: Lung bases are clear. There is a non-obstructive bowel gas pattern. Left ureteral stent is projected over the left kidney, ureter and bladder. There is no organomegaly. No abnormal calcifications. Soft tissues and bony structures are unremarkable. RAD/Abdomen Single View (Portable) IMPRESSION: Left ureteral stent in place. Unremarkable x-ray examination of the abdomen and pelvis. Electronically Signed: Marti Ashby MD at 23:55 EDT Tel , Service support ,
[2021-07-14] MEDS: Bisacodyl 10 MG Suppository RC (00:21)
[2021-07-14] MEDS: 0.9% Saline Lock 10 ML Syringe IV ×4 (00:21→19:55)
[2021-07-14] MEDS: ChlorproMAZINE 50 MG/2 ML Ampul 25 MG IM (02:03)
[2021-07-14 02:10] VITALS: BP 155/86; PULSE 107; RESP 16; TEMP 37.2; O2SAT 96
[2021-07-14] MEDS: 0.9% Normal Saline 1,000 ML 150 ML IV ×4 (03:52→23:04)
[2021-07-14] MEDS: Acetaminophen 325 MG Tablet 650 MG PO (05:30)
[2021-07-14 08:00] VITALS: BP 161/105; PULSE 100; RESP 16; TEMP 37.2; O2SAT 97
[2021-07-14] MEDS: Ondansetron 4 MG/2 ML Vial IV ×2 (08:02→16:01)
[2021-07-14] MEDS: Famotidine 200 MG/20 ML MDV 20 MG in 0.9% Normal Saline (Pres. free 8 ML 300 MG IV ×2 (08:03→21:35)
[2021-07-14 08:15] LABS: Absolute Lymphocyte Count 1.29 X10^3/uL (0.83-4.51); Absolute Neutrophil Count 6.6 X10^3/uL (2.0-7.7); Basophil# 0.02 X10^3/uL; Basophil% 0.2 % (0-1); Eosinophil# 0.05 X10^3/uL; Eosinophils% 0.6 % (0-5); Hematocrit 33.1 % (37-47); Hemoglobin 10.2 g/dL (12.0-15.0); Lymphocyte # 1.29 X10^3/ul (0.83-4.51); Lymphocyte % 15.2 % (19-41); Mean Corp Hgb Conc 30.8 g/dL (32-36); Mean Corpuscular Volume 77.9 fL (81-99); Mean Platelet Vol. 8.6 fl (6.2-12.0); Monocyte# 0.48 X10^3/uL; Monocyte% 5.6 % (0-10); NRBC Flagged by Analyzer 0 % (0-5); Neutrophil # 6.64 X10^3/uL (2.7-7.7); Platelet Count 308 K/mm3 (150-450); RBC Distribution Width CV 17.3 % (11.6-14.6); Red Blood Count 4.25 M/mm3 (4.2-5.4); White Blood Count 8.5 K/mm3 (4.4-11.0)
[2021-07-14 08:41] LABS: ALB/GLOB Ratio 0.8 RATIO (0.9-2.4); AST(SGOT) 15 U/L (15-37); Alanine Aminotransfer ALT/SGPT 16 U/L (13-56); Albumin, Serum 3.4 g/dL (3.2-5.0); Alkaline Phosphatase 53 U/L (45-117); Anion Gap 6 (5-15); BUN 5 mg/dL (7-18); Calcium,Total 8.6 mg/dL (8.5-10.1); Chloride 105 mmol/L (98-107); Creatinine, Serum 0.63 mg/dL (0.55-1.02); EST Glomerular Filtration Rate 127 mL/min (>60); Est Glom Filt Rate - Afr Amer 154 mL/min (>60); Estimated Creatinine Clearance 147.62 ml/min; Glucose 85 mg/dL (74-106); Potassium 3.2 mmol/L (3.5-5.1); Protein, Total 7.4 g/dL (6.4-8.2); Sodium Level 137 mmol/L (136-145)
[2021-07-14] MEDS: Ketorolac 30 MG/ML Syringe IV ×2 (10:03→19:55)
[2021-07-14] MEDS: proCHLORPERazine 10 MG/2 ML Vial IV ×3 (12:33→21:31)
[2021-07-14] MEDS: DiphenhydrAMINE 50 MG/ML Syringe 25 MG IV ×2 (12:33→21:31)
--- NOTE | 2021-07-14 12:34 | PN.HOSP_ITS ---
Documented by User: Meli Madrid NP-C 07/14/21 12:42 Subjective Subjective Patient seen and examined. Patient continues to have nausea and vomiting despite multiple medications given. Patient requesting to follow-up with Dr. Vanegas as patient is not wanting to return to [facility] due to subsequent complic ations and rescheduling of her appointments. Objective Data Objective Data Vital Signs: Vital Signs Temp Pulse Resp BP Pulse Ox 98.9 F 100 16 161/105 H 97 07/14/21 08:00 07/14/21 08:00 07/14/21 08:00 07/14/21 08:00 07/14/21 08:00 Oxygen Delivery Method Room Air Weight: 177 lb 14.609 oz Body Mass Index (BMI) 26.2 Intake & Output: Intake and Output for Last 24 Hours 07/12/21 07/13/21 07/14/21 23:59 23:59 22:59 Intake Total 61.5 / 1061.5 4110.0 / 4110.0 1942.5 / 1942.5 Output Total 400 / 400 Balance 61.5 / 1061.5 4110.0 / 3910.0 1542.5 / 1542.5 Lab / Micro Data Result Diagrams: 07/14/21 07:55 07/14/21 07:55 Labs: Laboratory Results - last 24 hr 07/14/21 07:55: WBC 8.5, RBC 4.25, Hgb 10.2 L, Hct 33.1 L, MCV 77.9 L, MCH 24.0 L, MCHC 30.8 L, RDW Std Deviation 49.0 H, RDW Coeff of Roz 17.3 H, Plt Count 308, MPV 8.6, Immature Gran % (Auto) 0.400, Neut % (Auto) 78.0 H, Lymph % (Auto) 15.2 L, Irion % (Auto) 5.6, Eos % (Auto) 0.6, Baso % (Auto) 0.2, Absolute Neuts (auto) 6.6, Absolute Lymphs (auto) 1.29, Nucleated RBC % 0 07/14/21 07:55: Sodium 137, Potassium 3.2 L, Chloride 105, Carbon Dioxide 26.0, Anion Gap 6, BUN 5 L, Creatinine 0.63, Estim Creat Clear Calc 147.62, Est GFR (MDRD) Af Amer 154, Est GFR (MDRD) Non-Af 127, BUN/Creatinine Ratio 8.0 L, Glucose 85, Calcium 8.6, Total Bilirubin 0.40, AST 15, ALT 16, Alkaline Phosphatase 53, Total Protein 7.4, Albumin 3.4, Globulin 4.0, Albumin/Globulin Ratio 0.8 L Radiography Diagnostic Testing: Radiology Impression Chest X-Ray 07/13/21 17:45 IMPRESSION: No acute disease. Stable since prior. Right IJ with tip in the lower SVC. Electronically Signed: Raven Gonzalez MD at 19:11 EDT Tel , Service support , KUB X-Ray 07/13/21 22:50 IMPRESSION: Left ureteral stent in place. Unremarkable x-ray examination of the abdomen and pelvis. Electronically Signed: Marti Ashby MD at 23:55 EDT Tel , Service support , Physical Exam Const alert, oriented x3 and no apparent distress General Appearance: cooperative HEENT normocephalic and head/scalp atraumatic Eyes conjunctivae normal and no scleral icterus Eyes Narrative: No icterus Neck full ROM and supple Resp normal respiratory effort, normal air movement and clear to auscultation bilaterally Cardio regular rate, regular rhythm, S1 normal heart sound and S2 normal heart sound GI soft to palpation and non-distended GI Narrative: Nondistended. Mild umbilical tenderness. No hernias Palpation: tender periumbilical Extremity normal to inspection, full ROM and normal capillary refill Skin no rashes or lesions noted and skin turgor normal Neuro oriented x3, moves all extremities, no focal motor deficits and no sensory deficits noted Sensorium / Orientation: awake and alert Psych mental status grossly normal, thought process normal and cooperative Psych Narrative: Flat affect Assessment & Plan Assessment/Plan (1) Intractable vomiting: QUALIFIERS: Nausea presence: with nausea Vomiting type: unspecified Qualified Code(s): R11.2 - Nausea with vomiting, unspecified (2) Intractable abdominal pain: PLAN: Patient is a 21-year-old female who was initially admitted with intractable nausea and vomiting and abdominal pain. Patient has had frequent readmissions due to ongoing issues. Patient underwent surgery in December for endometrial cancer and had a hysterectomy at that time. Due to complications patient also had to have a placement of a ureteral stent which is still intact. 1. Intractable nausea and vomiting -Nausea and vomiting continues -Vital signs stable, afebrile -Continue IV Zofran, compazine and p.o. Pepcid 2. Endometrial cancer -Patient had total hysterectomy completed in December 2019 and received a ureteral stent secondary to complications from that surgery. Patient has not followed up with recruitment specialist or urologist after surgery, states her appointments have been rescheduled multiple times -Case discussed with urologist at [facility] by ER physician who did not believe symptoms are related to surgical intervention that patient needs to follow-up outpatient. -Discussed case with Dr. Vanegas as patient is not wanting to go back to [facility] due to complications from prior surgeries. Dr. Vanegas states that she will see patient tomorrow and to make patient n.p.o. as she is planning to get patient added to surgery schedule to change out patient's ureteral stent. 3. Hypertension -Continue lisinopril -continue as needed hydralazine DVT prophylaxis-SCDs This patient was seen by JONY Bronson under the supervision of Dr. Johansen. Documented by User: Dr. Adelita Johansen MD 07/14/21 15:52 Objective Data Lab / Micro Data Result Diagrams: 07/14/21 07:55 07/14/21 07:55 Charges/Coding Addendum Addendum: Patient seen by JONY Anderson under my supervision. Patient seen and examined. She still complains of nausea and vomiting and unable to keep anything down. She denies any fever or chills. Review of systems otherwise negative. Patient tells me that she has not followed up with a urologist at [facility] since she had her surgery because her appointments keep getting canceled and she would now prefer to follow-up with a urologist here. She has remained hemodynamically stable. WBC today is 8.5 and hemoglobin is 10.2. O/E: Const alert, oriented x3 and no apparent distress General Appearance: cooperative HEENT normocephalic and head/scalp atraumatic Eyes conjunctivae normal and no scleral icterus Eyes Narrative: No icterus Neck full ROM and supple Resp normal respiratory effort, normal air movement and clear to auscultation bilaterally Cardio regular rate, regular rhythm, S1 normal heart sound and S2 normal heart sound GI soft to palpation and non-distended GI Narrative: Nondistended, mild left lower quadrant tenderness, no guarding or rebound tenderness. Extremity normal to inspection, full ROM and normal capillary refill Skin no rashes or lesions noted and skin turgor normal Neuro oriented x3, moves all extremities, no focal motor deficits and no sensory deficits noted Sensorium / Orientation: awake and alert Psych mental status grossly normal, thought process normal and cooperative Psych Narrative: Flat affect Patient has been managed for intractable nausea and vomiting. I am concerned that this may be due to stent that she had placed after she had ureteral injury during hysterectomy for endometrial cancer in December 2019. Patient has not followed up with her urologist at [facility] since then and states her Appointments keep on being canceled. She prefers to follow-up with a urologist here. Will place a consult to Dr. Vanegas who saw patient during previous admission. Continue IV Zofran and Compazine as needed for nausea and vomiting. Patient is on IV Toradol for pain but states it is not working. Will place patient on IV morphine as needed. Patient started on lisinopril to improve admission for hypertension. However due to incessant nausea and vomiting and mild hyperkalemia on admission, this has been discontinued. Patient placed on IV hydralazine as needed for now due to nausea and vomiting and ability to tolerate oral intake. Rest as per Rei Madrid NP-C's note which I reviewed and endorsed. Visit Charges Inpatient E&M: 33437 Subs Hosp L2
[2021-07-14 15:00] VITALS: BP 160/103; PULSE 100; RESP 16; TEMP 37.4; O2SAT 100
[2021-07-14 16:00] VITALS: PULSE 103
[2021-07-14] MEDS: hydrALAZINE 20 MG/ML Vial 10 MG IV (16:00)
[2021-07-14 17:18] VITALS: BP 154/98; PULSE 110
--- NOTE | 2021-07-14 19:36 | NURSING ---
reviewed documentation by Kali Anderson, student RN
[2021-07-14 20:00] VITALS: BP 160/85; PULSE 105; RESP 16; TEMP 37.2; O2SAT 98
[2021-07-15] VITALS (14 sets, daily range): BP systolic 132–166; BP diastolic 74–105; PULSE 95–119; RESP 16–18; TEMP 36.2–37.4; O2SAT 96–100; BMI 27.0
[2021-07-15] MEDS: Ondansetron 4 MG/2 ML Vial IV ×2 (02:00→10:03)
[2021-07-15] MEDS: hydrALAZINE 20 MG/ML Vial 10 MG IV ×3 (02:06→18:21)
[2021-07-15] MEDS: 0.9% Normal Saline 1,000 ML 150 ML IV (05:44)
[2021-07-15] MEDS: proCHLORPERazine 10 MG/2 ML Vial IV ×3 (05:45→17:38)
[2021-07-15] MEDS: Ketorolac 30 MG/ML Syringe IV ×2 (07:55→17:38)
[2021-07-15] MEDS: 0.9% Saline Lock 10 ML Syringe IV ×6 (07:56→20:22)
[2021-07-15 08:18] LABS: Absolute Lymphocyte Count 0.94 X10^3/uL (0.83-4.51); Absolute Neutrophil Count 5.4 X10^3/uL (2.0-7.7); Basophil# 0.02 X10^3/uL; Basophil% 0.3 % (0-1); Eosinophil# 0.03 X10^3/uL; Eosinophils% 0.4 % (0-5); Hematocrit 33.6 % (37-47); Hemoglobin 10.3 g/dL (12.0-15.0); Lymphocyte # 0.94 X10^3/ul (0.83-4.51); Lymphocyte % 13.8 % (19-41); Mean Corp Hgb Conc 30.7 g/dL (32-36); Mean Corpuscular Hgb 23.6 pg (27.0-32.0); Mean Corpuscular Volume 77.1 fL (81-99); Mean Platelet Vol. 8.3 fl (6.2-12.0); Monocyte# 0.35 X10^3/uL; Monocyte% 5.2 % (0-10); NRBC Flagged by Analyzer 0 % (0-5); Neutrophil # 5.42 X10^3/uL (2.7-7.7); Neutrophil % 79.9 % (47-70); Platelet Count 284 K/mm3 (150-450); RBC Distribution Width CV 17.1 % (11.6-14.6); RBC Distribution Width SD 48.1 fl (35.1-43.9); Red Blood Count 4.36 M/mm3 (4.2-5.4); White Blood Count 6.8 K/mm3 (4.4-11.0)
[2021-07-15 09:09] LABS: ALB/GLOB Ratio 0.9 RATIO (0.9-2.4); AST(SGOT) 16 U/L (15-37); Alanine Aminotransfer ALT/SGPT 14 U/L (13-56); Albumin, Serum 3.5 g/dL (3.2-5.0); Alkaline Phosphatase 53 U/L (45-117); Anion Gap 10 (5-15); BUN 6 mg/dL (7-18); BUN/Creat Ratio 10.8 RATIO (10-20); Calcium,Total 8.5 mg/dL (8.5-10.1); Chloride 105 mmol/L (98-107); Creatinine, Serum 0.56 mg/dL (0.55-1.02); EST Glomerular Filtration Rate 145 mL/min (>60); Est Glom Filt Rate - Afr Amer 176 mL/min (>60); Estimated Creatinine Clearance 166.07 ml/min; Globulin 3.9 g/dL (2.2-4.2); Glucose 79 mg/dL (74-106); Potassium 3.3 mmol/L (3.5-5.1); Protein, Total 7.4 g/dL (6.4-8.2); Sodium Level 135 mmol/L (136-145)
[2021-07-15] MEDS: Famotidine 200 MG/20 ML MDV 20 MG in 0.9% Normal Saline (Pres. free 8 ML 300 MG IV ×2 (10:04→20:22)
--- NOTE | 2021-07-15 10:07 | PN.HOSP_ITS ---
Documented by User: Meli Madrid NP-C 07/15/21 11:44 Subjective Subjective Patient seen and examined. Patient states that she is continuing to have nausea and vomiting despite use of multiple antiemetics. Patient is scheduled to go for a stent change with Dr. Vanegas later today. Patient states she feels miserable. Objective Data Objective Data Vital Signs: Vital Signs Temp Pulse Resp BP Pulse Ox 99.1 F 105 H 16 164/102 H 100 07/15/21 07:49 07/15/21 07:55 07/15/21 07:49 07/15/21 07:49 07/15/21 07:49 Oxygen Delivery Method Room Air Weight: 177 lb 7.554 oz Body Mass Index (BMI) 26.2 Intake & Output: Intake and Output for Last 24 Hours 07/14/21 07/14/21 07/15/21 00:59 23:59 23:59 Intake Total 1000 / 1000 Output Total Balance 1000 / 1000 Lab / Micro Data Result Diagrams: 07/15/21 08:10 07/15/21 08:10 Labs: Laboratory Results - last 24 hr 07/15/21 08:10: WBC 6.8, RBC 4.36, Hgb 10.3 L, Hct 33.6 L, MCV 77.1 L, MCH 23.6 L, MCHC 30.7 L, RDW Std Deviation 48.1 H, RDW Coeff of Roz 17.1 H, Plt Count 284, MPV 8.3, Immature Gran % (Auto) 0.400, Neut % (Auto) 79.9 H, Lymph % (Auto) 13.8 L, [place] % (Auto) 5.2, Eos % (Auto) 0.4, Baso % (Auto) 0.3, Absolute Neuts (auto) 5.4, Absolute Lymphs (auto) 0.94, Nucleated RBC % 0 07/15/21 08:10: Sodium 135 L, Potassium 3.3 L, Chloride 105, Carbon Dioxide 20.0 L, Anion Gap 10, BUN 6 L, Creatinine 0.56, Estim Creat Clear Calc 166.07, Est GF R (MDRD) Af Amer 176, Est GFR (MDRD) Non-Af 145, BUN/Creatinine Ratio 10.8, Glucose 79, Calcium 8.5, Total Bilirubin 0.50, AST 16, ALT 14, Alkaline Phosphatase 53, Total Protein 7.4, Albumin 3.5, Globulin 3.9, Albumin/Globulin Ratio 0.9 Physical Exam Const alert, oriented x3 and no apparent distress General Appearance: cooperative HEENT normocephalic and head/scalp atraumatic Eyes conjunctivae normal and no scleral icterus Eyes Narrative: No icterus Neck full ROM and supple Resp normal respiratory effort, normal air movement and clear to auscultation bilate rally Cardio regular rate, regular rhythm, S1 normal heart sound and S2 normal heart sound GI soft to palpation and non-distended GI Narrative: Nondistended. Mild umbilical tenderness. No hernias Palpation: tender periumbilical Extremity normal to inspection, full ROM and normal capillary refill Skin no rashes or lesions noted and skin turgor normal Neuro oriented x3, moves all extremities, no focal motor deficits and no sensory deficits noted Sensorium / Orientation: awake and alert Psych mental status grossly normal, thought process normal and cooperative Psych Narrative: Flat affect Assessment & Plan Assessment/Plan (1) Retained ureteral stent: (2) Intractable abdominal pain: (3) Intractable vomiting: QUALIFIERS: Nausea presence: with nausea Vomiting type: unspecified Qualified Code(s): R11.2 - Nausea with vomiting, unspecified PLAN: Patient is a 21-year-old female who was initially admitted with intractable nausea and vomiting and abdominal pain. Patient has had frequent readmissions due to ongoing issues. Patient underwent surgery in December for endometrial cancer and had a hysterectomy at that time. Due to complications patient also had to have a placement of a ureteral stent which is still intact. 1. Intractable nausea and vomiting -Nausea and vomiting continues -Vital signs stable, afebrile -Continue IV Zofran, compazine and p.o. Pepcid -If patient continues to have nausea and vomiting despite the placement of ureteral stent would consider possible diagnosis of cyclic vomiting syndrome and initiation of Topamax 2. Endometrial cancer -Patient had total hysterectomy completed in December 2019 and received a ureteral stent secondary to complications from that surgery. Patient has not followed up with imaging engineer or urologist after surgery, states her appointments have been rescheduled multiple times -Case discussed with urologist at [facility] by ER physician who did not believe symptoms are related to surgical intervention that patient needs to follow-up outpatient. -Discussed case with Dr. Vanegas as patient is not wanting to go back to [facility] due to complications from prior surgeries. Dr. Vanegas states that she will see patient and is planning to get patient added to surgery schedule for 07/15/21 to change out patient's ureteral stent. 3. Hypertension -Continue lisinopril -continue as needed hydralazine DVT prophylaxis-SCDs This patient was seen by Meli Madrid NP-C under the supervision of Dr. Johansen. Documented by User: Dr. Kelsie De Anda MD 07/15/21 15:39 Objective Data Lab / Micro Data Result Diagrams: 07/15/21 08:10 07/15/21 08:10 Charges/Coding Addendum Addendum: This patient was seen in conjunction with Meli Madrid NP. I have independently interviewed and examined the patient and reviewed pertinent hist orical, laboratory, and other data. I have reviewed her note and concur with her documentation Patient was seen and examined. She still complains of nausea. Going for cystoscopy/urethroscopy today Denies any dysuria or frequency. Denies any fever chills Physical Exam: Gen: In mild discomfort, not pale, not jaundiced CVS:HS I +II, regular, no murmurs RESP: CTA GI: BS present and normal, soft, nontender, no palpable organs EXT:No edema ASSESSMENT: 1. Acute intractable nausea and vomiting 2. Intractable abdominal pain 3. Status post total hysterectomy for endometrial CA 4. Hypertension Plan: Continue to follow-up on urological procedure Continue to monitor vital Continue antiemetic Visit Charges Inpatient E&M: 67099 Subs Hosp L2
[2021-07-15] MEDS: Lisinopril 10 MG Tablet PO (10:15)
--- NOTE | 2021-07-15 10:23 | PCM.CONS.GEN ---
Assessment & Plan Assessment/Plan (1) Hydronephrosis: (2) Retained ureteral stent: (3) Intractable vomiting: QUALIFIERS: Vomiting type: unspecified Nausea presence: with nausea Qualified Code(s): R11.2 - Nausea with vomiting, unspecified (4) Intractable abdominal pain: PLAN: Proceed with cystoscopy, left ureteral stent change, possible ureteroscopy. Informed consent was obtained after discussing the risks benefits and alternatives specifically the risks of anesthesia, bleeding, infection and injury. We discussed the possibility of difficulty removing her stent or with reinsertion of a new one. She understands that the risks are high secondary to the stent being in for a significant period of time and in addition secondary to her history of ureteral injury. She understands these risks and agrees to proceed. HPI Consult Data Date of Consult: 07/15/21 HPI Narrative HPI Narrative: ADDIS TORRES, is a 21 is admitted with intractable nausea, vomiting and flank pain. She has a history of undergoing a hysterectomy approximately 6 to 7 months ago at which time there was a left ureteral injury and a left ureteral stent was inserted. The same stent remains in place. She has developed hydronephrosis mild on this left side despite the stent being in place. We have discussed that there is no guarantee that this stent is causing her issues, but the stent has been in for a long period of time and needs to be changed. She was discharged on Levaquin antibiotics on July 12. She was readmitted yesterday with the same symptoms. Informed consent was obtained to proceed with cystoscopy, left ureteral stent change and possible left ureteroscopy. [facility] Medical History Alcohol abuse Cancer Depression Endometrial cancer Hydronephrosis Hypertension Menorrhagia Non-smoker Retained ureteral stent Ureter injury Home Medications acetaminophen [Tylenol] 650 mg PO Q4H PRN PRN #0 tab 07/12/21 [Rx Last Taken Unknown] diphenhydramine HCl [Banophen] 25 mg PO Q6H PRN PRN #0 cap 07/12/21 [Rx Last Taken Unknown] famotidine 20 mg PO BID 30 Days #60 tab 07/12/21 [Rx Last Taken Unknown] levofloxacin 750 mg PO DAILY #3 tab 07/12/21 [Rx Last Taken Unknown] lisinopril 10 mg PO DAILY 30 Days #30 tab 07/12/21 [Rx Last Taken Unknown] ondansetron 4 mg PO Q8H PRN #15 tab 07/12/21 [Rx Last Taken Unknown] Allergy/AdvReac Type Severity Reaction Status Date / Time ceftriaxone [From Rocephin] Allergy Hives Verified 07/12/21 19:40 promethazine [From Phenergan] Allergy Vomiting Verified 07/12/21 19:40 Family History Father No problems noted. Mother No problems noted. Surgical History History of hysterectomy for cancer History of renal stent Social History household members: family Smoking Status: Never smoker alcohol intake: former substance use type: does not use ROS ROS Narrative Patient complains of continued nausea, vomiting, left abdominal and left flank pain. There is no hematuria, dysuria. There is no shortness of breath, difficulty with breathing, chest pain. There are no skin rashes, itching, other musculoskeletal disorders or complaints. The remainder of the review of symptoms is negative. Physical Exam Const alert and oriented x3 Constitutional Narrative: Vomiting bag is next to her head. She does not appear comfortable. HEENT normocephalic, head/scalp atraumatic, hearing grossly normal bilaterally and external ears normal Face and Sinus: face symmetric Nose: external nose normal Mouth: lips normal and tongue normal Eyes General Eye: normal appearance of both eyes Neck supple General: trachea midline Lymph Lymphatic: no lymphedema noted Chest Chest: symmetrical chest wall rise Resp normal respiratory effort, normal air movement, no retractions and no use of accessory muscles Effort and Inspection: symmetric chest movement Cardio regular rate and regular rhythm GI soft to palpation and non-distended Palpation: tender LUQ Bladder / Kidney Exam: CVA tenderness left Back/Spine General Back: CVA tenderness left Extremity normal to inspection Skin no rashes or lesions noted and no wounds Neuro oriented x3, CN's II-XII intact bilaterally and moves all extremities Psych mental status grossly normal Lab / Micro Data Result Diagrams: 07/15/21 08:10 07/15/21 08:10 Labs: Laboratory Results - last 24 hr 07/15/21 08:10: WBC 6.8, RBC 4.36, Hgb 10.3 L, Hct 33.6 L, MCV 77.1 L, MCH 23.6 L, MCHC 30.7 L, RDW Std Deviation 48.1 H, RDW Coeff of Roz 17.1 H, Plt Count 284, MPV 8.3, Immature Gran % (Auto) 0.400, Neut % (Auto) 79.9 H, Lymph % (Auto) 13.8 L, [place] % (Auto) 5.2, Eos % (Auto) 0.4, Baso % (Auto) 0.3, Absolute Neuts (auto) 5.4, Absolute Lymphs (auto) 0.94, Nucleated RBC % 0 07/15/21 08:10: Sodium 135 L, Potassium 3.3 L, Chloride 105, Carbon Dioxide 20.0 L, Anion Gap 10, BUN 6 L, Creatinine 0.56, Estim Creat Clear Calc 166.07, Est GFR (MDRD) Af Amer 176, Est GFR (MDRD) Non-Af 145, BUN/Creatinine Ratio 10.8, Glucose 79, Calcium 8.5, Total Bilirubin 0.50, AST 16, ALT 14, Alkaline Phosphatase 53, Total Protein 7.4, Albumin 3.5, Globulin 3.9, Albumin/Globulin Ratio 0.9
--- NOTE | 2021-07-15 11:00 | CASEMGMT ---
[facility] chart review: Patient was admitted 07/09/21-07/12/21 for intractable nausea and vomiting, UTI. See EMY CM assessment from 07/10/21. Patient returned 07/12 for continued N/V. Patient is going to surgery today for ureteral stent replacement. Patient has history of endometrial cancer and had hysterectomy in December with complication of ureter james and had stents placed at this time. Patient states she was taking medications as prescribed. Patient states that she has tried to schedule appt with PCP but office keeps rescheduling appt. Patient to follow-up with Dr. Vanegas. CM will continue to follow this patient and plan for a safe discharge.
[2021-07-15] MEDS: Potassium Chloride 20mEq/100mL 20 MEQ/100 ML IV.SOLN. 50 MEQ IV BOLUS ×2 (11:17→13:18)
[2021-07-15] MEDS: 0.9% Normal Saline 1,000 ML 100 ML IV ×2 (11:49→18:21)
--- NOTE | 2021-07-15 13:37 | OP.PCM_ITS ---
Problems Associated Problem List Diagnoses (1) Hydronephrosis: (2) Retained ureteral stent: (3) Intractable vomiting: (4) Intractable abdominal pain: Report of Operation Date of Procedure: 07/15/21 Pre-Operative Diagnosis: Left hydronephrosis, retained left ureteral stent, intractable nausea and vomiting, abdominal pain Post-Operative Diagnosis: Same, left ureteral stricture Surgery/Procedure Performed:: Cystoscopy, left retrograde pyelogram, left ureteral stent change Surgeon: Cate Vanegas Type of Anesthesia: General Description of Procedure: The patient is a 21-year-old female with a ureteral injury at the time of hysterectomy approximately 6 to 7 months ago. A ureteral stent was inserted. She did not follow-up postoperatively and presented here with pain, nausea and vomiting. Given the length of time that the stent had been in place, we decided to proceed with cystoscopy, possible ureteroscopy, retrograde pyelograms and ureteral stent change. Informed consent was obtained. The patient was taken to the operating room and placed on the operating room table. Anesthesia monitored the head, neck, airway, IV access and vital signs throughout the case. Once anesthesia was appropriately administered the patient was placed into dorsal lithotomy position and was prepped and draped in usual sterile fashion. The cystoscope was inserted through the urethra under direct visualization and into the urinary bladder. The ureteral orifices were observed, the left one with the ureteral stent easily visualized. The remainder of the bladder mucosa was within normal limits. The stent was grasped with a grasping forcep and gently pulled to the urethral meatus. A small amount of resistance was met and 8.035 Glidewire was inserted through the stent and straightened the proximal aspect of the stent which was then easily removed. At this time an 8 [place] cone-tip catheter was used to gently cannulate the ureter on the left. A retrograde pyelogram revealed a narrowing at the pelvic brim. At this time a 0.035 Glidewire was passed through the ureteral orifice into the renal pelvis as seen on fluoroscopy. Flexible ureteroscopy was then performed to the area of narrowing and I was unable to gain proximal access secondary to this narrowing. At this time the ureteroscope was removed leaving the safety wire in place. A 6 [place] 28 cm JJ stent was then passed over the wire with good curling in the renal pelvis as well as the urinary bladder. The patient was then awakened and taken to the recovery room in good condition. There were no complications during this procedure. Grafts/Implants Used: 6 x 28 cm JJ stent Complications None Admit VTE Documentation VTE Present on Admission: Yes VTE Mechan Device Prophylaxis: SCD's VTE Pharm Prophylaxis ordered?: Yes
--- NOTE | 2021-07-15 13:50 | CASEMGMT ---
Social Work Note SW attempted to follow up with pt regarding Mental Health History. Pt currently off floor. SW will attempt to follow up with pt tomorrow. Ghazala Colin PRODUCT OPERATIONS ASSOCIATE, ACOUSTICAL INSTALLER
[2021-07-15] MEDS: Ciprofloxacin 400 MG/200 ML BAG 200 MG IV (14:23)
[2021-07-15] MEDS: Lubricating Jelly 60 GM Tube 30 GM TOPICAL (14:38)
[2021-07-16 00:20] VITALS: BP 128/78; PULSE 91; RESP 16; TEMP 36.6; O2SAT 97
[2021-07-16] MEDS: 0.9% Normal Saline 1,000 ML 100 ML IV (04:11)
[2021-07-16 04:17] VITALS: BP 141/67; PULSE 90; RESP 16; TEMP 36.8; O2SAT 96
[2021-07-16 06:00] LABS: Absolute Lymphocyte Count 1.33 X10^3/uL (0.83-4.51); Absolute Neutrophil Count 6.2 X10^3/uL (2.0-7.7); Basophil# 0.03 X10^3/uL; Basophil% 0.4 % (0-1); Eosinophil# 0.01 X10^3/uL; Eosinophils% 0.1 % (0-5); Hematocrit 32.8 % (37-47); Hemoglobin 10.2 g/dL (12.0-15.0); Lymphocyte # 1.33 X10^3/ul (0.83-4.51); Lymphocyte % 16.3 % (19-41); Mean Corp Hgb Conc 31.1 g/dL (32-36); Mean Corpuscular Hgb 23.9 pg (27.0-32.0); Mean Corpuscular Volume 76.8 fL (81-99); Mean Platelet Vol. 8.8 fl (6.2-12.0); Monocyte# 0.54 X10^3/uL; Monocyte% 6.6 % (0-10); NRBC Flagged by Analyzer 0 % (0-5); Neutrophil # 6.21 X10^3/uL (2.7-7.7); Neutrophil % 76.2 % (47-70); Platelet Count 295 K/mm3 (150-450); RBC Distribution Width CV 17.3 % (11.6-14.6); RBC Distribution Width SD 48.8 fl (35.1-43.9); Red Blood Count 4.27 M/mm3 (4.2-5.4); White Blood Count 8.2 K/mm3 (4.4-11.0)
[2021-07-16 06:21] LABS: Anion Gap 8 (5-15); BUN 8 mg/dL (7-18); BUN/Creat Ratio 13.7 RATIO (10-20); Calcium,Total 8.8 mg/dL (8.5-10.1); Chloride 106 mmol/L (98-107); Creatinine, Serum 0.58 mg/dL (0.55-1.02); EST Glomerular Filtration Rate 138 mL/min (>60); Est Glom Filt Rate - Afr Amer 167 mL/min (>60); Estimated Creatinine Clearance 160.35 ml/min; Glucose 82 mg/dL (74-106); Potassium 3.8 mmol/L (3.5-5.1); Sodium Level 136 mmol/L (136-145)
--- NOTE | 2021-07-16 07:59 | PN.URO_ITS ---
Subjective Subjective Patient is feeling much better this morning, the pain in her left lower quadrant has essentially resolved. Discussing issues with her today, she now reports that she may have had her hysterectomy over a year ago. She also remembers a time where she had a stent change and a ureteral biopsy revealing scar tissue as a cause for her stricture. We discussed that I am recommending follow-up with Juan Carlos Patel for evaluation and management of her stricture. She understands. Objective Data Objective Data Vital Signs: Vital Signs Temp Pulse Resp BP Pulse Ox 98.2 F 90 16 141/67 H 96 07/16/21 04:17 07/16/21 04:17 07/16/21 04:17 07/16/21 04:17 07/16/21 04:17 Oxygen Delivery Method Room Air Weight: 82 kg Body Mass Index (BMI) 27.0 Intake & Output: Intake and Output for Last 24 Hours 07/14/21 07/15/21 07/16/21 23:59 23:59 23:59 Intake Total 3054.16 / 3154.16 1083.33 / 1083.33 Output Total 600 / 1350 750 / 750 Balance 2454.16 / 1804.16 333.33 / 333.33 Lab / Micro Data Result Diagrams: 07/16/21 05:45 07/16/21 05:45 Labs: Laboratory Results - last 24 hr 07/15/21 08:10: WBC 6.8, RBC 4.36, Hgb 10.3 L, Hct 33.6 L, MCV 77.1 L, MCH 23.6 L, MCHC 30.7 L, RDW Std Deviation 48.1 H, RDW Coeff of Roz 17.1 H, Plt Count 284, MPV 8.3, Immature Gran % (Auto) 0.400, Neut % (Auto) 79.9 H, Lymph % (Auto) 13.8 L, [place] % (Auto) 5.2, Eos % (Auto) 0.4, Baso % (Auto) 0.3, Absolute Neuts (auto) 5.4, Absolute Lymphs (auto) 0.94, Nucleated RBC % 0 07/15/21 08:10: Sodium 135 L, Potassium 3.3 L, Chloride 105, Carbon Dioxide 20.0 L, Anion Gap 10, BUN 6 L, Creatinine 0.56, Estim Creat Clear Calc 166.07, Est G FR (MDRD) Af Amer 176, Est GFR (MDRD) Non-Af 145, BUN/Creatinine Ratio 10.8, Glucose 79, Calcium 8.5, Total Bilirubin 0.50, AST 16, ALT 14, Alkaline Phosphatase 53, Total Protein 7.4, Albumin 3.5, Globulin 3.9, Albumin/Globulin Ratio 0.9 07/16/21 05:45: WBC 8.2, RBC 4.27, Hgb 10.2 L, Hct 32.8 L, MCV 76.8 L, MCH 23.9 L, MCHC 31.1 L, RDW Std Deviation 48.8 H, RDW Coeff of Roz 17.3 H, Plt Count 295, MPV 8.8, Immature Gran % (Auto) 0.400, Neut % (Auto) 76.2 H, Lymph % (Auto) 16.3 L, [place] % (Auto) 6.6, Eos % (Auto) 0.1, Baso % (Auto) 0.4, Absolute Neuts (auto) 6.2, Absolute Lymphs (auto) 1.33, Nucleated RBC % 0 07/16/21 05:45: Sodium 136, Potassium 3.8, Chloride 106, Carbon Dioxide 22.0, Anion Gap 8, BUN 8, Creatinine 0.58, Estim Creat Clear Calc 160.35, Est GFR (MDRD) Af Amer 167, Est GFR (MDRD) Non-Af 138, BUN/Creatinine Ratio 13.7, Gluco se 82, Calcium 8.8 Micro: Microbiology 07/15/21 10:15 Nasal Secretion SARS-CoV-2 Antigen (Rapid) - Final Physical Exam Const alert, oriented x3 and no apparent distress HEENT normocephalic GI soft to palpation and non-tender Assessment & Plan Assessment/Plan (1) Hydronephrosis: (2) Ureteral stricture, left: (3) Abdominal pain: (4) Intractable vomiting with nausea: PLAN: Plan to follow-up as an outpatient for evaluation management in [facility], I will be sending referral to Dr. Barahona.
[2021-07-16 08:44] VITALS: BP 123/94; PULSE 93; RESP 14; TEMP 37.1; O2SAT 100
[2021-07-16] MEDS: Famotidine 200 MG/20 ML MDV 20 MG in 0.9% Normal Saline (Pres. free 8 ML 300 MG IV (08:53)
[2021-07-16] MEDS: 0.9% Saline Lock 10 ML Syringe IV (08:53)
[2021-07-16] MEDS: Lisinopril 10 MG Tablet PO (08:53)
[2021-07-16] MEDS: Enoxaparin 40 MG/0.4 ML Syringe SC (08:53)
[2021-07-16] MEDS: Ketorolac 30 MG/ML Syringe IV (08:54)
--- NOTE | 2021-07-16 10:14 | CASEMGMT ---
Pt screened with [facility] Palliative Care Screening Tool due to readmission, pt did not meet criteria.
--- NOTE | 2021-07-16 10:39 | PCM.DC ---
Discharge Instructions Diet Discharge Diet: No restrictions Activity Discharge Activity: Return to Normal Activity Dressing / Incision Call your doctor if you observe: Inability to urinate and Inability to have a bowel movement Follow Up Care Test Results: Test results from this visit will be discussed in further detail at your follow-up appointment, if applicable. Discharge Plan Admission Admit Date/Time: 07/14/21 17:55 Primary Reason for Your Visit: Nausea and vomiting Attending Provider: Kelsie De Anda Consulting Providers: Cate Vanegas Instructions Patient Instructions: ED Vomiting (Adult) Discharge Orders/Prescriptions Prescriptions: Continued acetaminophen [Tylenol] 325 mg Tablet 650 mg PO Q4H PRN PRN (Reason: Fever, pain -06/16) Qty: 0 RF: 0 famotidine 20 mg Tablet 20 mg PO BID 30 Days Qty: 60 RF: 0 lisinopril 10 mg Tablet 10 mg PO DAILY 30 Days Qty: 30 RF: 0 Discontinued diphenhydramine HCl [Banophen] 25 mg Capsule 25 mg PO Q6H PRN PRN (Reason: Itching) Qty: 0 RF: 0 levofloxacin 750 mg tablet 750 mg PO DAILY Qty: 3 RF: 0 ondansetron 4 mg tablet,disintegrating 4 mg PO Q8H PRN (Reason: nausea and vomiting) Qty: 15 RF: 0 Referrals / Follow Up: Henry,INDRANEEL [Other] - 3-5 Days Henry,INDRANEEL [Other] Disposition Disposition (needs filled in before D/C Order can be placed): Home, Self Care
--- NOTE | 2021-07-16 10:43 | PCM.DC.SUM ---
Documented by User: JONY Bronson 07/16/21 10:50 Providers Date of Admission: 07/14/21 Primary Care Physician: EDWIGE Henry Consultations 07/15/21 09:32 Consult: Urology Routine Consulting Provider: Cate Vanegas Reason for Consult: urinary stents EMERGENT Consult: No MD Notified: Yes Date Notified: 07/15/21 Time Notified: 09:33 Method of Notification: Provider Initiated Reason For Visit: NAUSEA AND VOMITING Diagnosis Discharge Diagnosis (1) Hydronephrosis: Status: Acute Code(s): N13.30 - Unspecified hydronephrosis (2) Ureteral stricture, left: Status: Acute Code(s): N13.5 - Crossing vessel and stricture of ureter without hydronephrosis (3) Abdominal pain: Status: Acute Code(s): R10.9 - Unspecified abdominal pain (4) Intractable vomiting with nausea: Status: Acute Code(s): R11.2 - Nausea with vomiting, unspecified Medications at Discharge Home Medications acetaminophen [Tylenol] 650 mg PO Q4H PRN PRN #0 tab 07/12/21 famotidine 20 mg PO BID 30 Days #60 tab 07/12/21 lisinopril 10 mg PO DAILY 30 Days #30 tab 07/12/21 Hospital Course Operations None and - (Ureteral stent exchange) Procedures None Summary of Care Provided Minutes Spent on Discharge: 20 Hospital Course: Patient is a 21-year-old female who was readmitted for continued intractable nausea and vomiting as well as abdominal pain. During hospitalization patient underwent a cystoscopy, left retrograde pyelogram, left ureteral stent change with Dr. Vanegas. Per Dr. Vanegas's note patient has a referral to Dr. Barahona at [facility] for further follow-up. Upon discharge patient has had almost complete resolution of her symptoms, intermittent mild nausea. Physical Exam Const alert, oriented x3 and no apparent distress General Appearance: cooperative HEENT normocephalic and head/scalp atraumatic Eyes conjunctivae normal and no scleral icterus Eyes Narrative: No icterus Neck full ROM and supple Resp normal respiratory effort, normal air movement and clear to auscultation bilaterally Cardio regular rate, regular rhythm, S1 normal heart sound and S2 normal heart sound GI soft to palpation and non-distended GI Narrative: Nondistended. Mild umbilical tenderness. No hernias Palpation: tender periumbilical Extremity normal to inspection, full ROM and normal capillary refill Skin no rashes or lesions noted and skin turgor normal Neuro oriented x3, moves all extremities, no focal motor deficits and no sensory deficits noted Sensorium / Orientation: awake and alert Psych mental status grossly normal, thought process normal and cooperative Psych Narrative: Flat affect Weight / BMI Weight Weight: 180 lb 12.465 oz Body Mass Index (BMI) 27.0 ABG / Lab / Microbiology Data Result Diagrams: 07/16/21 05:45 07/16/21 05:45 Laboratory: Laboratory Results - last 24 hr 07/16/21 05:45: WBC 8.2, RBC 4.27, Hgb 10.2 L, Hct 32.8 L, MCV 76.8 L, MCH 23.9 L, MCHC 31.1 L, RDW Std Deviation 48.8 H, RDW Coeff of Roz 17.3 H, Plt Count 295, MPV 8.8, Immature Gran % (Auto) 0.400, Neut % (Auto) 76.2 H, Lymph % (Auto) 16.3 L, [place] % (Auto) 6.6, Eos % (Auto) 0.1, Baso % (Auto) 0.4, Absolute Neuts (auto) 6.2, Absolute Lymphs (auto) 1.33, Nucleated RBC % 0 07/16/21 05:45: Sodium 136, Potassium 3.8, Chloride 106, Carbon Dioxide 22.0, Anion Gap 8, BUN 8, Creatinine 0.58, Estim Creat Clear Calc 160.35, Est GFR (MDRD) Af Amer 167, Est GFR (MDRD) Non-Af 138, BUN/Creatinine Ratio 13.7, Glucose 82, Calcium 8.8 Microbiology: Microbiology 07/15/21 10:15 Nasal Secretion SARS-CoV-2 Antigen (Rapid) - Final D/C Instructions Discharge Diet: No restrictions Call your doctor if you observe: Inability to urinate and Inability to have a bowel movement Meaningful Use Info Meaningful Use Diagnoses (Choose all that apply): None applicable Discharge Plan Admission Admit Date/Time: 07/14/21 17:55 Primary Reason for Your Visit: Nausea and vomiting Attending Provider: Kelsie De Anda Consulting Providers: Cate Vanegas Instructions Patient Instructions: ED Vomiting (Adult) Discharge Orders/Prescriptions Prescriptions: Continued acetaminophen [Tylenol] 325 mg Tablet 650 mg PO Q4H PRN PRN (Reason: Fever, pain 1-06/16) Qty: 0 RF: 0 famotidine 20 mg Tablet 20 mg PO BID 30 Days Qty: 60 RF: 0 lisinopril 10 mg Tablet 10 mg PO DAILY 30 Days Qty: 30 RF: 0 Discontinued diphenhydramine HCl [Banophen] 25 mg Capsule 25 mg PO Q6H PRN PRN (Reason: Itching) Qty: 0 RF: 0 levofloxacin 750 mg tablet 750 mg PO DAILY Qty: 3 RF: 0 ondansetron 4 mg tablet,disintegrating 4 mg PO Q8H PRN (Reason: nausea and vomiting) Qty: 15 RF: 0 Referrals / Follow Up: EDWIGE Henry [Other] - 07/18/21 10:30 am EDWIGE Henry [Other] Disposition Disposition (needs filled in before D/C Order can be placed): Home, Self Care Documented by User: Dr. Kelsie De Anda MD 07/16/21 15:08 Providers Date of Admission: 07/14/21 Reason For Visit: NAUSEA AND VOMITING Medications at Discharge Home Medications acetaminophen [Tylenol] 650 mg PO Q4H PRN PRN #0 tab 07/12/21 famotidine 20 mg PO BID 30 Days #60 tab 07/12/21 lisinopril 10 mg PO DAILY 30 Days #30 tab 07/12/21 ABG / Lab / Microbiology Data Result Diagrams: 07/16/21 05:45 07/16/21 05:45 Discharge Plan Admission Admit Date/Time: 07/14/21 17:55 Primary Reason for Your Visit: Nausea and vomiting Attending Provider: Kelsie De Anda Consulting Providers: Cate Vanegas Instructions Patient Instructions: ED Vomiting (Adult) Discharge Orders/Prescriptions Prescriptions: Continued acetaminophen [Tylenol] 325 mg Tablet 650 mg PO Q4H PRN PRN (Reason: Fever, pain 1-06/16) Qty: 0 RF: 0 famotidine 20 mg Tablet 20 mg PO BID 30 Days Qty: 60 RF: 0 lisinopril 10 mg Tablet 10 mg PO DAILY 30 Days Qty: 30 RF: 0 Discontinued diphenhydramine HCl [Banophen] 25 mg Capsule 25 mg PO Q6H PRN PRN (Reason: Itching) Qty: 0 RF: 0 levofloxacin 750 mg tablet 750 mg PO DAILY Qty: 3 RF: 0 ondansetron 4 mg tablet,disintegrating 4 mg PO Q8H PRN (Reason: nausea and vomiting) Qty: 15 RF: 0 Referrals / Follow Up: EDWIGE Henry [Other] - 07/18/21 10:30 am TONY HenryEL [Other] Disposition Disposition (needs filled in before D/C Order can be placed): Home, Self Care Charges/Coding Addendum Addendum: This patient was seen in conjunction with Meli Madrid NP. I have independently interviewed and examined the patient and reviewed pertinent historical, laboratory, and other data. I have reviewed her note and concur with her documentation 21-year-old female with past medical history of endometrial CA status post hysterectomy, status post ureteral stent secondary to injury during surgery comes in with intractable nausea and vomiting. Patient was discharged recently and readmitted with intractable nausea and vomiting. Patient had her surgery done in [facility]. Urology was consulted and she underwent cystoscopy PE, left retrograde pyelogram, left ureteral stent change on 07/15/21. Patient was monitored overnight and she had resolution of her pain and nausea. She will follow-up with urology in [facility]. On the day of discharge, patient was seen and examined. Physical Exam: Gen: Appeared comfortable, not pale, not jaundiced CVS:HS I +II, regular, no murmurs RESP: CTA GI: BS present and normal, soft, nontender, no palpable organs EXT:No edema Visit Charges Inpatient E&M: 38809 Disch Hosp
--- NOTE | 2021-07-16 12:07 | CASEMGMT ---
Social Work Note Pt is being discharged today. SW in to speak with pt. SW introduced self and role at [facility]. Pt states that she is doing well, ready to be discharged home. SW spoke with pt regarding her Mental Health, specifically Anxiety and Depression. Pt states that she is doing ok, states that [facility] stopped her Depression/Anxiety Medications while she's been here. Pt states that she thinks she needs to be on higher dose of her medications. SW asked pt who her medications are prescribed through and pt states Dr. Henry. SW informed pt that she will need to follow up with Dr. Henry at discharge regarding increase in her medications. Pt states she is not sure if Dr. Henry will do that, states she was told that she needs to go to a Mental Health Agency. SW informed pt that Dr. Henry is likely talking about pt seeing a psychiatrist. SW informed pt that this worker can provide pt with Mental Health Agencies and pt can review agencies and decide which one she would like to schedule an intake appointment for to see a psychiatrist for medication management. Pt agreeable to taking resources. LYNN put together packet of Mental Health Agencies and their contact information. SW back in to speak with pt. SW provided pt with packet of resources. Pt denied any history of suicidal thoughts/plans/ideations. Pt denied any current suicidal thoughts/plans/ideations. Pt denied additional needs or concerns at this time. Ghazala Colin MANAGER FLIGHT, THERAPEUTIC CONSULTANT
--- NOTE | 2021-07-17 14:37 | CASEMGMT ---
RN CM Discharge Follow-Up Phone Call. Lace: 11 Strata: 3 Discharge Date: 07/16/21 Adm Dx: N/V Attempted discharge f/u phone call. No answer. Recording w/pt's name identified came on. Non-descript VM left for return call to RN CM if there are any questions or concerns. Phone number provided. Maribel ESCALANTE RN CM
== END 2021-07-16 12:30 | disposition home or self-care (01) | DRG 465 ==
LOC: ED 07-13 03:30 → MS3 07-13 05:15
PROVIDERS: Nurse Practitioner Family; Urology; Emergency Provider Emergency Medicine; Visit Provider Internal Medicine
PROC: 0TJ98ZZ Inspection of Ureter, Via Natural or Artificial Opening Endoscopic (ICD-10-PCS; CPT 52352; principal; 2021-07-15 13:15)
DX: N13.1 Hydronephrosis with ureteral stricture, not elsewhere classified (principal); Z46.6 Encounter for fitting and adjustment of urinary device; R11.15 Cyclical vomiting syndrome unrelated to migraine; I10 Essential (primary) hypertension; F32.A Depression, unspecified; D64.9 Anemia, unspecified; E87.5 Hyperkalemia; E66.9 Obesity, unspecified; Z68.27 Body mass index [BMI] 27.0-27.9, adult; Z91.19 Patient's noncompliance with other medical treatment and regimen; Z85.42 Personal history of malignant neoplasm of other parts of uterus; Z90.710 Acquired absence of both cervix and uterus; Z79.899 Other long term (current) drug therapy; Z87.440 Personal history of urinary (tract) infections
CPT/HCPCS: 36415; 71045; 74018; 76000; 80048; 80053; 81001; 85025; 87426; 97802; 99283; 99406; J7030; A4216; C1751; J0744; J2405; J3490

== ENCOUNTER 2021-07-18 18:09 | Emergency (ER) | payer MEDICAID, SELFPAY ==
[2021-07-18 18:09] VITALS: BP 143/101; PULSE 108; RESP 18; TEMP 36.3; O2SAT 98; BMI 28.8
[2021-07-18 18:30] VITALS: BP 143/101; PULSE 108; RESP 18; TEMP 36.3; O2SAT 98
--- NOTE | 2021-07-18 19:11 | EDS_ITS ---
HPI HPI - GI History of Present Illness Chief Complaint: Abd Pain Informant: patient and spouse/S.O. Abdominal Pain/Flank Pain Onset: Days Context: Gradual Onset Timing: Continuous Quality: Aching Location: Diffuse Current Severity: Mild Maximum Severity: Mild Nausea/Vomiting/Emesis GI Symptom: Positive for Nausea and Vomiting Diarrhea/Melena/Hematochezia GI Symptom: Negative for Diarrhea, Melena and Hematochezia Associated Symptoms Associated Symptoms: Negative for Dysuria, Frequency and Hematuria Narrative Narrative: 21 recent admission for nausea and vomiting. Patient is a history of a hysterectomy secondary to uterine cancer and injury to her left ureter which is need to be stented. She had recent admissions for nausea vomiting and abdominal pain. Recently they replaced the left ureter. She was just discharge d 2 days ago she returns now with nausea and vomiting. No diarrhea. No dysuria. No fever. Prior similar symptoms: Yes Recent Illness/Hospitalization: Yes PFSH PFSH Medical History Alcohol abuse Cancer Depression Endometrial cancer Hydronephrosis Hypertension Menorrhagia Non-smoker Retained ureteral stent Ureter injury Ureteral stricture, left Home Medications acetaminophen [Tylenol] 650 mg PO Q4H PRN PRN #0 tab 07/12/21 [Rx Last Taken Unknown] famotidine 20 mg PO BID 30 Days #60 tab 07/12/21 [Rx Last Taken Unknown] lisinopril 10 mg PO DAILY 30 Days #30 tab 07/12/21 [Rx Last Taken Unknown] ondansetron 4 mg PO Q6H PRN #10 tab 07/18/21 [Rx Last Taken Unknown] Allergy/AdvReac Type Severity Reaction Status Date / Time ceftriaxone [From Rocephin] Allergy Hives Verified 07/18/21 18:12 promethazine [From Phenergan] Allergy Vomiting Verified 07/18/21 18:12 Family History Father No problems noted. Mother No problems noted. Surgical History History of hysterectomy for cancer History of renal stent Social History household members: family Smoking Status: Never smoker alcohol intake: former substance use type: does not use ROS ROS ED ROS Narrative And vomiting. Review of Systems ROS Unobtainable: Denies due to encephalopathy Constitutional Constitutional ED: Denies fever(s) ENT ENT ED: Denies ear pain Cardiovascular Cardiovascular: Denies chest pain Respiratory/Chest Respiratory/Chest: Denies cough or dyspnea Gastrointestinal Gastrointestinal: Reports abdominal pain, nausea and vomiting; Denies constipation or diarrhea Genitourinary Genitourinary ED: Denies dysuria or hematuria Musculoskeletal Musculoskeletal: Denies myalgias Integumentary Denies rash Neurologic Neurologic: Denies headache(s) Psychiatric Psychiatric: Denies depression Endocrine Endocrinology: Denies polyuria Hematologic/Lymphatic Hematologic/Lymphatic: Denies easy bruising Allergic/Immunologic Allergic/Immunologic ED: Denies urticaria EXAM Physical Exam Narrative Exam Narrative: 1-year-old female no acute distress actively nausea and vomiting. Vital signs stable afebrile. H EENT exam unremarkable mildly dry mucous membranes. Neck nontender noncyanotic. Lungs clear to auscultation bilaterally. Heart regular rhythm no murmur. Rate about 100. Abdomen soft nondistended normal bowel sounds no peritoneal signs. Moving all 4 extremities. No edema. Neurologically awake alert without focal motor deficits. Yet Const Vital Signs: 07/18/21 18:09 07/18/21 18:30 Temperature 97.4 F L 97.4 F L Temperature Source Temporal Temporal Pulse Rate 108 H 108 H Respiratory Rate 18 18 Blood Pressure 143/101 H 143/101 H Blood Pressure Mean 115 115 Pulse Ox 98 98 Oxygen Delivery Method Room Air Room Air Positive well nourished and well developed; Negative for obese, cachectic, contractures or unkempt General Appearance ED: well developed and NAD; Negative for unkempt, cachectic, contractures or pallor Nutritional Appearance: Negative for cachectic or obese HEENT Reports moist mucous membranes normocephalic and atraumatic; Negative for trauma or tenderness Eyes PERRL and EOMs intact bilaterally Neck no lymphadenopathy, supple and no JVD General: tenderness Resp normal respiratory effort and clear to auscultation bilaterally Auscultation: Negative for rales, rhonchi or wheezes Cardio regular rate, regular rhythm, S1 normal heart sound, S2 normal heart sound and no murmurs GI non-distended and no masses; Negative for non-tender Inspection: Negative for abdominal distention Auscultation: normoactive bowel sounds; Negative for hyperactive bowel sounds or hypoactive bowel sounds Palpation: soft and tender; Negative for guarding, rigid or rebound tenderness present Back/Spine no CVA tenderness General Back: Negative for CVA tenderness Extremity full ROM General Extremety ED: Negative for edema or tenderness General Extremity: Negative for edema Neuro moves all extremities Sensorium / Orientation: alert, oriented to person, oriented to place and oriented to time; Negative for orientation impaired, confused, lethargic or stuporous Motor Exam: strength 5/5 throughout Psych mental status grossly normal Appearance: Negative for unkempt Skin no wounds General Skin Exam: Negative for jaundice or pallor Lesions: no lesions Rashes: no rashes MDM MDM MDM Narrative Medical decision making narrative: 21-year-old with intractable nausea and vomiting. Multiple episodes of this before. Review exam is otherwise otherwise she is requesting. Abdomen is benign. Labs are unremarkable. I do not think she would benefit from readmission. Zofran and Toradol prior to discharge. She will follow up as an outpatient with her primary care physician. Lab Data Attestation: I reviewed the patient's lab results. Lab results narrative: CBC shows white count 9.8 hemoglobin 12.4. 390,000 platelets. Electrolytes potassium 3.1 gap of 10 normal BUN and creatinine. Liver enzymes unremarkable. Glucose 84. Patient has had multiple recent abdominal CTs which show her ureteral stent but are otherwise unremarkable. I do not think that needs to be repeated tonight. Labs: Laboratory Results - last 24 hr 07/18/21 07/18/21 19:00 19:00 WBC 11.8 H RBC 5.20 Hgb 12.4 Hct 40.1 MCV 77.1 L MCH 23.8 L MCHC 30.9 L RDW Std Deviation 48.8 H RDW Coeff of Roz 17.6 H Plt Count 390 MPV 9.1 Immature Gran % (Auto) 0.300 Neut % (Auto) 82.2 H Lymph % (Auto) 10.2 L [place] % (Auto) 5.6 Eos % (Auto) 1.4 Baso % (Auto) 0.3 Absolute Neuts (auto) 9.7 H Absolute Lymphs (auto) 1.20 Nucleated RBC % 0 Differential Comment SCANNED Sodium 135 L Potassium 3.1 L Chloride 96 L Carbon Dioxide 29.0 Anion Gap 10 BUN 13 Creatinine 0.75 Estim Creat Clear Calc 124.00 Est GFR (MDRD) Af Amer 125 Est GFR (MDRD) Non-Af 103 BUN/Creatinine Ratio 17.3 Glucose 84 Calcium 9.4 Total Bilirubin 0.60 AST 13 L ALT 17 Alkaline Phosphatase 60 Total Protein 8.9 H Albumin 4.3 Globulin 4.6 H Albumin/Globulin Ratio 0.9 Discharge Plan Triage Chief Complaint: Abd Pain ED Provider: Jerrell Lozada Dx/Rx/DC Orders Clinical Impression: Abdominal pain, Nausea Instructions: Abdominal Pain, Nausea Vomit Control Prescriptions: New ondansetron 4 mg tablet,disintegrating 4 mg PO Q6H PRN (Reason: nausea and vomiting) Qty: 10 RF: 0 No Action acetaminophen [Tylenol] 325 mg Tablet 650 mg PO Q4H PRN PRN (Reason: Fever, pain -06/16) Qty: 0 RF: 0 famotidine 20 mg Tablet 20 mg PO BID 30 Days Qty: 60 RF: 0 lisinopril 10 mg Tablet 10 mg PO DAILY 30 Days Qty: 30 RF: 0 Referrals: EDWIGE Henry [Other] Activity Restrictions/Additional Instructions: Zofran for nausea. Motrin and Tylenol for pain. Follow-up with your primary care provider. [place] diet increase slowly as tolerated. Disposition Disposition: Home, Self Care
[2021-07-18] MEDS: Ondansetron 4 MG/2 ML Vial IV ×2 (19:15→23:22)
[2021-07-18] MEDS: Ketorolac 30 MG/ML Syringe IV (19:15)
[2021-07-18] MEDS: morphine 8 MG/ML Syringe IV (19:16)
[2021-07-18] MEDS: 0.9% Normal Saline 1,000 ML 1000 ML IV (19:17)
[2021-07-18 19:24] LABS: Absolute Neutrophil Count 9.7 X10^3/uL (2.0-7.7); Basophil# 0.04 X10^3/uL; Basophil% 0.3 % (0-1); Eosinophil# 0.16 X10^3/uL; Eosinophils% 1.4 % (0-5); Hematocrit 40.1 % (37-47); Hemoglobin 12.4 g/dL (12.0-15.0); Lymphocyte % 10.2 % (19-41); Mean Corp Hgb Conc 30.9 g/dL (32-36); Mean Corpuscular Hgb 23.8 pg (27.0-32.0); Mean Corpuscular Volume 77.1 fL (81-99); Mean Platelet Vol. 9.1 fl (6.2-12.0); Monocyte# 0.66 X10^3/uL; Monocyte% 5.6 % (0-10); NRBC Flagged by Analyzer 0 % (0-5); Neutrophil # 9.65 X10^3/uL (2.7-7.7); Neutrophil % 82.2 % (47-70); POSITIVE COUNT YES; Platelet Count 390 K/mm3 (150-450); RBC Distribution Width CV 17.6 % (11.6-14.6); RBC Distribution Width SD 48.8 fl (35.1-43.9); White Blood Count 11.8 K/mm3 (4.4-11.0)
[2021-07-18 19:27] LABS: Differential Indicated SCAN CRITERIA MET
[2021-07-18 19:40] LABS: ALB/GLOB Ratio 0.9 RATIO (0.9-2.4); AST(SGOT) 13 U/L (15-37); Alanine Aminotransfer ALT/SGPT 17 U/L (13-56); Albumin, Serum 4.3 g/dL (3.2-5.0); Alkaline Phosphatase 60 U/L (45-117); Anion Gap 10 (5-15); BUN 13 mg/dL (7-18); BUN/Creat Ratio 17.3 RATIO (10-20); Calcium,Total 9.4 mg/dL (8.5-10.1); Chloride 96 mmol/L (98-107); Creatinine, Serum 0.75 mg/dL (0.55-1.02); EST Glomerular Filtration Rate 103 mL/min (>60); Est Glom Filt Rate - Afr Amer 125 mL/min (>60); Globulin 4.6 g/dL (2.2-4.2); Glucose 84 mg/dL (74-106); Potassium 3.1 mmol/L (3.5-5.1); Protein, Total 8.9 g/dL (6.4-8.2); Sodium Level 135 mmol/L (136-145)
[2021-07-18 20:02] LABS: Differential Comment SCANNED
[2021-07-18 23:23] VITALS: BP 130/78; PULSE 72; RESP 16; O2SAT 98
== END 2021-07-18 23:23 | disposition home or self-care (01) ==
PROVIDERS: Emergency Provider Emergency Medicine
DX: R10.9 Unspecified abdominal pain (principal); R11.2 Nausea with vomiting, unspecified; I10 Essential (primary) hypertension; F32.A Depression, unspecified; Z96.0 Presence of urogenital implants; Z85.42 Personal history of malignant neoplasm of other parts of uterus; Z79.899 Other long term (current) drug therapy
CPT/HCPCS: 80053; 85025; 96361; 96374; 96375; 96376; 99283; J7030; A4216; J2405

== ENCOUNTER 2021-07-19 08:36 | Observation (INO) | payer MEDICAID, SELFPAY ==
[2021-07-19] VITALS (14 sets, daily range): BP systolic 126–161; BP diastolic 71–106; PULSE 80–108; RESP 11–21; TEMP 36.4–37.7; O2SAT 96–100; BMI 27.3; BMI 25.9; BMI 25.8
--- NOTE | 2021-07-19 09:07 | CT_ITS ---
STUDY: CT ABDOMEN AND PELVIS WITHOUT CONTRAST REASON FOR EXAM: Female, 21 years old. Left flank pain. History of hematuria and stent placement. RADIATION DOSAGE (If Supplied By Facility): CTDIvol = ( 9.95 ) mGy, DLP = ( 554.11 ) mGycm TECHNIQUE: Transaxial images were obtained from the dome of the diaphragm to the symphysis pubis without oral contrast, and without intravenous contrast. Sagittal and coronal images were reconstructed. Individualized dose optimization techniques were used for this CT. COMPARISON: Comparison is made with prior study 07/08/2021. FINDINGS: The visualized lung bases are unremarkable. The visualized portions of the heart are within normal limits. Normal liver. Normal gallbladder and extrahepatic biliary system. Normal spleen. Normal pancreas. Normal bilateral adrenal glands. Normal right kidney. Since prior study, there has been a progression of the left hydronephrosis and left hydroureter. A double-J stent catheter is once again seen with the proximal tip in the left renal pelvis and distal tip in the left-sided urinary bladder. Persistent left perinephric and periureteric stranding. This has progressed as compared to prior study. Normal visualized stomach. Normal small intestine. Normal colon. The appendix is visualized and appears normal. Normal abdominal aorta. Normal inferior vena cava. Normal retroperitoneum. The bladder is empty. There is evidence of a bladder wall thickening. Small amount of the air is seen in the vaginal cuff. Increased markings are seen within the fat in the region of the lower pelvis. Normal abdominal wall. Mild levoscoliosis. CT/Abdomen/Pelvis without Cont IMPRESSION: Progressive left hydronephrosis and hydroureter with perinephric and periureteric stranding. Stable position of the double-J stent catheter on the left side. Persistent increased markings in the region of the cul-de-sac. Small amount of air is seen within the vaginal cuff. Electronically Signed: Pardeep Wetzel MD at 10:06 EST , Service support ,
[2021-07-19 09:12] LABS: Mucous, Urine 0 SEEN /hpf (<or=2+)
--- NOTE | 2021-07-19 09:12 | EDS_ITS ---
HPI History of Present Illness Chief Complaint: Complaint Informant: patient Onset/Context/Timing Onset: Yesterday Current Severity: Moderate Maximum Severity: Severe Narrative Narrative: Patient presents with abdominal pain, vomiting, hematuria July 14-. She originally had a hysterectomy started yesterday. Patient has had recent admissions to the hospital including this past spring in [place]. There was an injury to her left ureter. She had a ureteral stent placed at that time during her recent admission, on July 15, patient had a ureteral stent change. She was discharged home on the with improved symptoms. Patient states she developed dysuria and hematuria yesterday along with nausea and vomiting. She has not noticed a fever at home. Patient was seen by Dr. Vanegas while in the hospital here. She was referred to Dr. Barahona in [place] but has yet to make an appointment. [facility] Medical History Alcohol abuse Cancer Depression Endometrial cancer Hydronephrosis Hypertension Menorrhagia Non-smoker Retained ureteral stent Ureter injury Ureteral stricture, left Home Medications acetaminophen [Tylenol] 650 mg PO Q4H PRN PRN #0 tab 07/12/21 [Rx Last Taken Unknown] famotidine 20 mg PO BID 30 Days #60 tab 07/12/21 [Rx Last Taken Unknown] lisinopril 10 mg PO DAILY 30 Days #30 tab 07/12/21 [Rx Last Taken Unknown] ondansetron 4 mg PO Q6H PRN #10 tab 07/18/21 [Rx Last Taken Unknown] Allergy/AdvReac Type Severity Reaction Status Date / Time ceftriaxone [From Rocephin] Allergy Hives Verified 07/18/21 18:12 promethazine [From Phenergan] Allergy Vomiting Verified 07/18/21 18:12 Family History Father No problems noted. Mother No problems noted. Surgical History History of hysterectomy for cancer History of renal stent Social History household members: family Smoking Status: Never smoker alcohol intake: former substance use type: does not use ROS ROS ED Constitutional Constitutional ED: Denies chills or fever(s) Eyes Eyes: Denies change in vision ENT ENT ED: Denies sore throat Cardiovascular Cardiovascular: Denies chest pain Respiratory/Chest Respiratory/Chest: Denies cough or dyspnea Gastrointestinal Gastrointestinal: Reports abdominal pain, constipation, nausea and vomiting; Denies diarrhea Genitourinary Genitourinary ED: Reports dysuria and hematuria Musculoskeletal Musculoskeletal: Denies back pain Integumentary Denies rash Neurologic Neurologic: Denies headache(s) or weakness Allergic/Immunologic Allergic/Immunologic ED: Denies urticaria EXAM Physical Exam Const Vital Signs: 07/19/21 08:36 07/19/21 10:28 Temperature 100 F H Temperature Source Temporal Pulse Rate 105 H 96 Respiratory Rate 20 H 15 Blood Pressure 145/105 H 156/102 H Blood Pressure Mean 118 120 Pulse Ox 98 98 Oxygen Delivery Method Room Air Room Air Positive well nourished and well developed General Appearance ED: well developed HEENT Reports moist mucous membranes Eyes PERRL and EOMs intact bilaterally Neck supple Resp normal respiratory effort and clear to auscultation bilaterally Cardio regular rhythm Rate: tachycardic GI GI Narrative: Abdomen soft with mild diffuse tenderness. No guarding or rebound. Hypoactive bowel sounds. Extremity normal to inspection Neuro oriented x3 Sensorium / Orientation: alert Psych mental status grossly normal Skin no rashes or lesions noted MDM MDM MDM Narrative Medical decision making narrative: Lab work including blood and urine cultures obtained along with Covid swab. Patient given IV fluids, morphine, Zofran. Lab Data Attestation: I reviewed the patient's lab results. Labs: Laboratory Results - last 24 hr 07/19/21 07/19/21 07/19/21 08:58 09:20 09:20 WBC 11.3 H RBC 4.80 Hgb 11.4 L Hct 36.6 L MCV 76.3 L MCH 23.8 L MCHC 31.1 L RDW Std Deviation 48.1 H RDW Coeff of Roz 17.3 H Plt Count 359 MPV 8.7 Immature Gran % (Auto) 0.400 Neut % (Auto) 76.2 H Lymph % (Auto) 13.7 L Wallace % (Auto) 7.5 Eos % (Auto) 1.8 Baso % (Auto) 0.4 Absolute Neuts (auto) 8.6 H Absolute Lymphs (auto) 1.55 Nucleated RBC % 0 Sodium 134 L Potassium 3.1 L Chloride 99 Carbon Dioxide 25.0 Anion Gap 10 BUN 12 Creatinine 0.65 Estim Creat Clear Calc 143.08 Est GFR (MDRD) Af Amer 148 Est GFR (MDRD) Non-Af 122 BUN/Creatinine Ratio 18.5 Glucose 84 Lactic Acid Calcium 9.2 Urine Color Red Urine Clarity Turbid Urine pH 5.0 Ur Specific [place] 1.025 Urine Protein 500 H Urine Glucose (UA) Normal Urine Ketones 150 A* Urine Occult Blood 250 H Urine Nitrite Negative Urine Bilirubin Negative Urine Urobilinogen Normal Ur Leukocyte Esterase 100 H Urine RBC 50-100 SEEN Urine WBC 10-25 SEEN Ur Squamous Epith Cells 0-5 SEEN Urine Bacteria 1+ Urine Mucus 0 SEEN 07/19/21 09:20 WBC RBC Hgb Hct MCV MCH MCHC RDW Std Deviation RDW Coeff of Roz Plt Count MPV Immature Gran % (Auto) Neut % (Auto) Lymph % (Auto) Wallace % (Auto) Eos % (Auto) Baso % (Auto) Absolute Neuts (auto) Absolute Lymphs (auto) Nucleated RBC % Sodium Potassium Chloride Carbon Dioxide Anion Gap BUN Creatinine Estim Creat Clear Calc Est GFR (MDRD) Af Amer Est GFR (MDRD) Non-Af BUN/Creatinine Ratio Glucose Lactic Acid 0.8 Calcium Urine Color Urine Clarity Urine pH Ur Specific [place] Urine Protein Urine Glucose (UA) Urine Ketones Urine Occult Blood Urine Nitrite Urine Bilirubin Urine Urobilinogen Ur Leukocyte Esterase Urine RBC Urine WBC Ur Squamous Epith Cells Urine Bacteria Urine Mucus Radiography Diagnostic Testing: Clinical Impression(s) from Imaging Studies Abdomen/Pelvis CT 07/19/21 09:07 IMPRESSION: Progressive left hydronephrosis and hydroureter with perinephric and periureteric stranding. Stable position of the double-J stent catheter on the left side. Persistent increased markings in the region of the cul-de-sac. Small amount of air is seen within the vaginal cuff. Electronically Signed: Pardeep Wetzel MD at 10:06 EST , Service support , Treatment and Re-Evaluation Comments:: Test results reviewed. Lactic acid and renal function normal. White count slightly elevated 11.3. Potassium low at 3.1, consistent with prior values. Urinalysis does show 10-25 white cells with 1+ bacteria. CT flank reveals progressive left hydronephrosis and hydroureter with perinephric and periureteral stranding. Stable position of the catheter. I spoke with Dr. Vanegas as it appears patient had previously been referred to a manufacturing technician in [place]. She states this was solely for the purpose of ureteral implantation and not something that needed to be done emergently. We reviewed her test results today. With the patient having progressive left hydronephrosis she did suggest having radiology place a nephrostomy tube if possible. We are able to do that procedure here at 1:00 this afternoon. Patient has been given a dose of IV Levaquin. Test results discussed with patient and mother at bedside. I will speak with hospitalist for admission. Discharge Plan Triage Chief Complaint: Complaint ED Provider: Patience Steiner Dx/Rx/DC Orders Clinical Impression: Pyelonephritis Prescriptions: No Action acetaminophen [Tylenol] 325 mg Tablet 650 mg PO Q4H PRN PRN (Reason: Fever, pain 1-06/16) Qty: 0 RF: 0 famotidine 20 mg Tablet 20 mg PO BID 30 Days Qty: 60 RF: 0 lisinopril 10 mg Tablet 10 mg PO DAILY 30 Days Qty: 30 RF: 0 ondansetron 4 mg tablet,disintegrating 4 mg PO Q6H PRN (Reason: nausea and vomiting) Qty: 10 RF: 0 Referrals: Henry,INDRANEEL [Other] Disposition Disposition: Acute Care Hospital [facility]
[2021-07-19 09:15] LABS: Color, Urine Red (Yellow); Glucose, Dipstick Normal (Normal); Leukocyte Esterase-Dipstick 100 /ul (Negative); Nitrite-Dipstick Negative (Negative); Occult Blood-Urine 250 /ul (Negative); Protein-Dipstick 500 mg/dl (Negative); Specific Gravity, Urine 1.025 (1.002-1.030); Urine Bilirubin Dipstick Negative (Negative); Urine Clarity Turbid (Clear); Urine Urobilinogen Normal (Normal)
[2021-07-19] MEDS: Ondansetron 4 MG/2 ML Vial IV (09:18)
[2021-07-19] MEDS: Morphine 4 MG/ML Syringe IV ×2 (09:19→11:27)
[2021-07-19] MEDS: Ketorolac 30 MG/ML Syringe IV (09:20)
[2021-07-19 09:24] LABS: Ketone-Dipstick 150 mg/dl (Negative)
[2021-07-19 09:25] LABS: Bacteria 1+ /hpf (None Seen); Red Blood Cells-Urine 50-100 SEEN /hpf (0-5); Squamous Epithelial Cells - UA 0-5 SEEN /hpf (5-10); White Blood Cells 10-25 SEEN /hpf (0-5)
[2021-07-19 09:30] LABS: Absolute Lymphocyte Count 1.55 X10^3/uL (0.83-4.51); Absolute Neutrophil Count 8.6 X10^3/uL (2.0-7.7); Basophil# 0.05 X10^3/uL; Basophil% 0.4 % (0-1); Eosinophils% 1.8 % (0-5); Hematocrit 36.6 % (37-47); Hemoglobin 11.4 g/dL (12.0-15.0); Lymphocyte # 1.55 X10^3/ul (0.83-4.51); Lymphocyte % 13.7 % (19-41); Mean Corp Hgb Conc 31.1 g/dL (32-36); Mean Corpuscular Hgb 23.8 pg (27.0-32.0); Mean Corpuscular Volume 76.3 fL (81-99); Mean Platelet Vol. 8.7 fl (6.2-12.0); Monocyte# 0.85 X10^3/uL; Monocyte% 7.5 % (0-10); NRBC Flagged by Analyzer 0 % (0-5); Neutrophil # 8.62 X10^3/uL (2.7-7.7); Neutrophil % 76.2 % (47-70); Platelet Count 359 K/mm3 (150-450); RBC Distribution Width CV 17.3 % (11.6-14.6); RBC Distribution Width SD 48.1 fl (35.1-43.9); White Blood Count 11.3 K/mm3 (4.4-11.0)
[2021-07-19 09:44] LABS: Anion Gap 10 (5-15); BUN 12 mg/dL (7-18); BUN/Creat Ratio 18.5 RATIO (10-20); Calcium,Total 9.2 mg/dL (8.5-10.1); Chloride 99 mmol/L (98-107); Creatinine, Serum 0.65 mg/dL (0.55-1.02); EST Glomerular Filtration Rate 122 mL/min (>60); Est Glom Filt Rate - Afr Amer 148 mL/min (>60); Estimated Creatinine Clearance 143.08 ml/min; Glucose 84 mg/dL (74-106); Potassium 3.1 mmol/L (3.5-5.1); Sodium Level 134 mmol/L (136-145)
[2021-07-19 10:01] LABS: Lactic Acid 0.8 mmol/L (0.4-1.9)
[2021-07-19] MEDS: 0.9% Normal Saline 1,000 ML 150 ML IV (10:22)
[2021-07-19] MEDS: HYDROmorphone 0.5 MG/0.5 ML SYRINGE IV (10:22)
[2021-07-19] MEDS: levoFLOXacin IV 500 MG/100 ML BAG 100 MG IV (11:12)
--- NOTE | 2021-07-19 11:39 | HP.PCM.HOS_ITS ---
HPI - General General Date of Admission: 07/19/21 Date of Service: 07/19/21 Chief Complaint: Abdominal pain, nausea, vomiting, hematuria HPI Kunal TORRES, is a 21 F who presented to the emergency department at [facility] on 07/19/2021 after being in the ED last evening for abdominal pain, vomiting, and hematuria. She has had several hospitalizations here with regards to her urinary tract. The most recent was at admission from 07/15/2021 to 07/16/2021 for intractable nausea and vomiting as well as abdominal pain. During that hospitalization she underwent a cystoscopy and a left retrograde pyelogram with left ureteral stent change done by Dr. Vanegas. A referral has been made to Dr. Reyes in [facility] for follow-up as her case is complicated and the origins of her issues occurred at that [facility]. Upon discharge she had some mild intermittent nausea but her symptoms had resolved. Last evening she was seen in the emergency department and was discharged home after some Toradol and Zofran. She states she came back today because she had persistent left-sided abdominal pain, nausea, vomiting and the inability to keep down food. She also developed hematuria. A CT of her abdomen and pelvis was performed in the emergency department and showed progressive left hydronephrosis and hydroureter with perinephritic stranding and periureteral stranding with stable position of a double-J stent catheter on the left side. The case was discussed with Dr. Thanh Limon from urology by the e mergency department physician and she recommended PERC nephrostomy to be placed in IR today if able. They were able to get her in for this procedure this afternoon. Her vital signs on admission are unremarkable. Her CBC is overall fairly unremarkable showing only a mild leukocytosis. Her BMP shows mild hyponatremia and hypokalemia with normal renal function but was otherwise unremarkable. Her UA was red and turbid and showed ketones, protein, leuk esterase with white cells and 1+ bacteria. A urine culture was sent. She was given a dose of Levaquin and IV fluids and request for admission was made. [facility] Medical History Alcohol abuse Cancer Depression Endometrial cancer Hydronephrosis Hypertension Menorrhagia Non-smoker Retained ureteral stent Ureter injury Ureteral stricture, left Home Medications acetaminophen [Tylenol] 650 mg PO Q4H PRN PRN #0 tab 07/12/21 [Rx Last Taken Unknown] famotidine 20 mg PO BID 30 Days #60 tab 07/12/21 [Rx Last Taken Unknown] lisinopril 10 mg PO DAILY 30 Days #30 tab 07/12/21 [Rx Last Taken Unknown] ondansetron 4 mg PO Q6H PRN #10 tab 07/18/21 [Rx Last Taken Unknown] mirtazapine 15 mg PO QHS 07/19/21 [History Last Taken Unknown] naproxen 500 mg PO BID 07/19/21 [History Last Taken Unknown] Allergy/AdvReac Type Severity Reaction Status Date / Time ceftriaxone [From Rocephin] Allergy Hives Verified 07/18/21 18:12 promethazine [From Phenergan] Allergy Vomiting Verified 07/18/21 18:12 Family History Father No problems noted. Mother No problems noted. Surgical History History of hysterectomy for cancer History of renal stent Social History household members: family Smoking Status: Never smoker alcohol intake: former substance use type: does not use ROS Constitutional Constitutional: Reports malaise and weakness; Denies anorexia, change in weight, chills, fatigue, fever(s), night sweats or other Eyes Eyes: Denies blurry vision, change in eye color, change in vision, discharge f rom eye(s), double vision, erythema, eye pain, loss of vision or other ENT HEENT: Denies abnormal hearing, dysphagia, ear pain, epistaxis, headache(s), hearing loss, nasal congestion, nasal discharge, post nasal drip, sinus pre ssure, sore throat or other Cardiovascular Cardiovascular: Denies chest pain, claudication, dyspnea on exertion, edema, lightheadedness, orthopnea, palpitations, paroxysmal nocturnal dyspnea, rapid heart rate, syncope or other Respiratory/Chest Respiratory/Chest: Denies cough, dyspnea, excessive phlegm production, hemoptysis, productive cough, shortness of breath at rest, shortness of breath with exertion, wheezing or other Gastrointestinal Gastrointestinal: Reports abdominal pain, nausea and vomiting; Denies coffee ground emesis, constipation, diarrhea, dyspepsia, hematemesis, hematochezia, loose stools, melena or other Genitourinary Genitourinary: Reports burning urination, hematuria and urinary frequency; Denies difficulty urinating, dysuria, nocturia, urinary hesitancy, urinary incontinence, urinary urgency or other Musculoskeletal Musculoskeletal: Denies arthralgias, back pain, joint pain, joint stiffness, joint swelling, myalgias, neck pain or other Neurologic Neurologic: Denies abnormal gait, abnormal speech, confusion, disequilibrium, dizziness, focal weakness, headache(s), numbness, paresthesias, seizure-like activity, seizures, syncope, tingling, tremor(s) or other Psychiatric Psychiatric: Denies anxiety, depression, homicidal ideation, suicidal ideation or other Endocrine Endocrinology: Denies change in body appearance, cold intolerance, excessive sweating, heat intolerance, polydipsia, polyuria or other Hematologic/Lymphatic Hematologic/Lymphatic: Denies anemia, easy bleeding, easy bruising, lymphadenopathy or other Allergic/Immunologic Allergic/Immunologic: Denies rhinitis, hives, eczemia, asthma or other Vital Signs Vital Signs Vital Signs: 07/19/21 08:36 07/19/21 10:28 07/19/21 11:30 Temperature 100 F H 98.6 F Temperature Source Temporal Oral Pulse Rate 105 H 96 86 Respiratory Rate 20 H 15 14 Blood Pressure 145/105 H 156/102 H 144/90 H Blood Pressure Mean 118 120 108 Pulse Ox 98 98 96 Oxygen Delivery Method Room Air Room Air Room Air Weight Weight: 83.915 kg Body Mass Index (BMI) 27.3 Physical Exam Const alert, oriented x3 and no apparent distress Constitutional Narrative: Young white female sitting up in bed rolled to the left side, nontoxic, appears comfortable, nursing at bedside obtaining lab General Appearance: cooperative HEENT normocephalic, head/scalp atraumatic, hearing grossly normal bilaterally and moist oral mucous membranes HEENT Narrative: Dentition good, Mallampati 2, no thrush Eyes PERRL, EOMs intact bilaterally and conjunctivae normal Eyes Narrative: No scleral icterus Neck no lymphadenopathy, supple and no JVD Neck Narrative: Trachea midline no thyroid enlargement Resp normal respiratory effort, no retractions, no use of accessory muscles and clear to auscultation bilaterally Auscultation: Negative for crackles, rales, rhonchi or wheezes Cardio regular rate, regular rhythm, S1 normal heart sound, S2 normal heart sound, no murmurs, no rub, no gallops, no clicks and no JVD GI soft to palpation and non-distended GI Narrative: Tender and guarding with left flank palpation, bowel sounds normal Palpation: tender and guarding Extremity normal to inspection and no clubbing, cyanosis or edema Peripheral Pulses: Yes pulses 2+ throughout Skin no rashes or lesions noted, no wounds, skin turgor normal, no jaundice, no petechiae and no mottling Neuro oriented x3, CN's II-XII intact bilaterally, moves all extremities and no focal motor deficits Sensorium / Orientation: awake and alert Motor Exam: strength 5/5 throughout Psych Psych Narrative: Affect is somewhat flat and mood seems slightly depressed Results Lab / Micro Data Attestation: I reviewed the patient's lab results. Result Diagrams: 07/19/21 09:20 07/19/21 09:20 Labs: Laboratory Results - last 24 hr 07/19/21 08:58: Urine Color Red, Urine Clarity Turbid, Urine pH 5.0, Ur Specific [place] 1.025, Urine Protein 500 H, Urine Glucose (UA) Normal, Urine Ketones 150 A*, Urine Occult Blood 250 H, Urine Nitrite Negative, Urine Bilirubin Negative, Urine Urobilinogen Normal, Ur Leukocyte Esterase 100 H, Urine RBC 50-100 SEEN, Urine WBC 10-25 SEEN, Ur Squamous Epith Cells 0-5 SEEN, Urine Bacteria 1+, Urine Mucus 0 SEEN 07/19/21 09:20: WBC 11.3 H, RBC 4.80, Hgb 11.4 L, Hct 36.6 L, MCV 76.3 L, MCH 23.8 L, MCHC 31.1 L, RDW Std Deviation 48.1 H, RDW Coeff of Roz 17.3 H, Plt Count 359, MPV 8.7, Immature Gran % (Auto) 0.400, Neut % (Auto) 76.2 H, Lymph % (Auto) 13.7 L, [place] % (Auto) 7.5, Eos % (Auto) 1.8, Baso % (Auto) 0.4, Absolute Neuts (auto) 8.6 H, Absolute Lymphs (auto) 1.55, Nucleated RBC % 0 07/19/21 09:20: Sodium 134 L, Potassium 3.1 L, Chloride 99, Carbon Dioxide 25.0, Anion Gap 10, BUN 12, Creatinine 0.65, Estim Creat Clear Calc 143.08, Est GFR (MDRD) Af Amer 148, Est GFR (MDRD) Non-Af 122, BUN/Creatinine Ratio 18.5, Glucose 84, Calcium 9.2 07/19/21 09:20: Lactic Acid 0.8 Micro: Microbiology 07/19/21 09:20 Nasal Secretion SARS-CoV-2 Antigen (Rapid) - Final Radiology Impression Abdomen/Pelvis CT 07/19/21 09:07 IMPRESSION: Progressive left hydronephrosis and hydroureter with perinephric and periureteric stranding. Stable position of the double-J stent catheter on the left side. Persistent increased markings in the region of the cul-de-sac. Small amount of air is seen within the vaginal cuff. Electronically Signed: Pardeep Wetzel MD at 10:06 EST , Service support , Assessment & Plan Assessment/Plan (1) Pyelonephritis: (2) Hydronephrosis: (3) Intractable vomiting with nausea: (4) Acute flank pain: PLAN: Suspected pyelonephritis/hydronephrosis/hematuria -Patient with history of left ureteral injury 6 to 7 months ago during total hysterectomy secondary to uterine cancer -Developed hydronephrosis despite stent placement -Stent was exchanged at last admission -N.p.o. until nephrostomy tube can be placed -Percutaneous nephrostomy tube to be placed today -Urine culture from clean-catch and nephrostomy tube pending -[facility] -Urology consulted -Pain control with p.o. versus IV pain medication to patient tolerance -Avoid naproxen -Patient is to follow-up with Dr. Barahona at [facility] Intractable nausea and vomiting -IV fluids -Antiemetics -Nephrostomy tube placement -N.p.o. until nephrostomy tube can be placed and then will do clear liquid diet and advance as tolerated Hypokalemia -Potassium replacement -Repeat BMP in a.m. Hypovolemic hyponatremia -IV fluids -Repeat BMP in a.m. Hypertension -Continue home medication of lisinopril 10 mg daily Depression -Continue mirtazapine GERD -Continue famotidine History of endometrial cancer -Stable DVT prophylaxis -Early ambulation protocol -Low risk CODE STATUS -Full code Charges/Coding Visit Charges Inpatient E&M: 38550 Init Hosp L3
[2021-07-19 12:04] LABS: International Normalized Ratio 1.3; Partial Thromboplast Time 29.7 Seconds (24.1-36.2); Prothrombin Time (Protime)PT. 15.1 SECONDS (11.7-14.9)
--- NOTE | 2021-07-19 12:14 | PCS.PANDOC ---
PANDEMIC DOCUMENTATION INITIATED: Date: 04/22/2021 Time: 190
[2021-07-19] MEDS: Lactated Ringers 1,000 ML 75 ML IV (12:20)
--- NOTE | 2021-07-19 12:28 | CT_ITS ---
PROCEDURE: COMPUTED TOMOGRAPHIC GUIDANCE DURING PERCUTANEOUS NEPHROSTOMY PROCEDURE. DATE OF EXAMINATION: 07/19/2021. INDICATION: Female, 21 years old. Left hydronephrosis. PHYSICIAN: Pardeep Wetzel M.D. CONSENT: The patient''s history and physical findings were reviewed. Prior to the procedure the percutaneous nephrostomy procedure was described to the patient who then signed a consent. Possible complications including infection and bleeding were explained to the patient. SEDATION: Conscious sedation was obtained. The patient received 2 mg of VERSED and 75 mcg of FENTANYL intravenously. Conscious sedation was started at the 1:38 PM and terminated at 2:02 PM. The patient was monitored by the department nurse. Individualized dose optimization techniques were utilized. CTD vol : 10.02 DLP : 472.33 TECHNIQUE: A 8.5 Thai percutaneous left nephrostomy catheter was inserted under CT guidance. Contrast was injected through the left nephrostomy catheter which opacified the left upper collecting system. . A loop of the pigtail catheter was formed within the left renal pelvis and locked in this position. There is dilatation of the upper collecting system. No contrast passed into the urinary bladder. The catheter was secured to the skin surface and covered with a sterile dressing. The catheter was attached to a drainage bag attached to the patient''s leg. CT/Nephrotube Placement CT IMPRESSION: 1. The percutaneous left nephrostomy catheter is in good position with the pigtail portion located in the right renal pelvis. 2. Conscious sedation protocol was followed. Electronically Signed: aPrdeep Wetzel MD at 14:28 EST , Service support ,
[2021-07-19] MEDS: Lidocaine 2% (20 ml mdv) 20 ML Vial INFILT (13:38)
[2021-07-19] MEDS: Midazolam 2 MG/2 ML Syringe IV (13:38)
[2021-07-19] MEDS: fentaNYL 100 MCG/2 ML Ampul IV ×2 (13:41→13:59)
[2021-07-19] MEDS: 0.9% Saline Lock 10 ML Syringe IV ×2 (15:00→17:51)
[2021-07-19] MEDS: Morphine 2 MG/ML Syringe IV ×4 (15:00→23:59)
[2021-07-19] MEDS: Potassium Chloride 10mEq/100mL 10 MEQ/100 ML IV.SOLN. 100 MEQ IV BOLUS (15:03)
--- NOTE | 2021-07-19 15:17 | NURSING ---
Suture removed from previous IJ site.
[2021-07-19] MEDS: 0.9% Normal Saline 1,000 ML 75 ML IV (15:40)
[2021-07-19] MEDS: Ondansetron ODT 4 MG Tablet PO (16:28)
[2021-07-19] MEDS: Potassium Chloride 10mEq/100mL 10 MEQ/100 ML IV.SOLN. 80 MEQ IV BOLUS ×3 (16:29→19:17)
[2021-07-19] MEDS: oxyCODONE 5 MG Tablet PO (16:29)
[2021-07-19] MEDS: Senna/Docusate Sodium 1 Tablet 2 TABLET PO (16:29)
[2021-07-19] MEDS: Mirtazapine 15 MG Tablet PO (20:16)
[2021-07-19] MEDS: Famotidine 20 MG Tablet PO (20:16)
[2021-07-20] MEDS: Morphine 2 MG/ML Syringe IV ×5 (02:14→22:07)
[2021-07-20] MEDS: 0.9% Normal Saline 1,000 ML 75 ML IV ×2 (02:15→17:53)
[2021-07-20 02:55] VITALS: BP 132/87; PULSE 88; RESP 18; TEMP 36.7; O2SAT 96
[2021-07-20 06:40] LABS: Absolute Lymphocyte Count 1.66 X10^3/uL (0.83-4.51); Absolute Neutrophil Count 6.3 X10^3/uL (2.0-7.7); Basophil# 0.03 X10^3/uL; Basophil% 0.3 % (0-1); Eosinophil# 0.29 X10^3/uL; Eosinophils% 3.2 % (0-5); Hematocrit 35.7 % (37-47); Hemoglobin 10.6 g/dL (12.0-15.0); Lymphocyte # 1.66 X10^3/ul (0.83-4.51); Lymphocyte % 18.5 % (19-41); Mean Corp Hgb Conc 29.7 g/dL (32-36); Mean Corpuscular Hgb 23.8 pg (27.0-32.0); Mean Platelet Vol. 8.7 fl (6.2-12.0); Monocyte# 0.62 X10^3/uL; Monocyte% 6.9 % (0-10); NRBC Flagged by Analyzer 0 % (0-5); Neutrophil # 6.34 X10^3/uL (2.7-7.7); Neutrophil % 70.7 % (47-70); Platelet Count 262 K/mm3 (150-450); RBC Distribution Width CV 17.7 % (11.6-14.6); RBC Distribution Width SD 51.4 fl (35.1-43.9); Red Blood Count 4.46 M/mm3 (4.2-5.4)
[2021-07-20 07:07] LABS: Anion Gap 5 (5-15); BUN 9 mg/dL (7-18); BUN/Creat Ratio 16.4 RATIO (10-20); Calcium,Total 8.5 mg/dL (8.5-10.1); Chloride 109 mmol/L (98-107); Creatinine, Serum 0.55 mg/dL (0.55-1.02); EST Glomerular Filtration Rate 148 mL/min (>60); Est Glom Filt Rate - Afr Amer 179 mL/min (>60); Estimated Creatinine Clearance 169.09 ml/min; Glucose 75 mg/dL (74-106); Magnesium 2.2 mg/dL (1.6-2.6); Potassium 3.8 mmol/L (3.5-5.1); Sodium Level 140 mmol/L (136-145)
[2021-07-20 07:17] LABS: Phosphorus 3.3 mg/dL (2.5-4.9)
[2021-07-20] MEDS: Ondansetron ODT 4 MG Tablet PO (07:52)
[2021-07-20] MEDS: Senna/Docusate Sodium 1 Tablet 2 TABLET PO (07:53)
[2021-07-20 08:55] VITALS: BP 128/89; PULSE 87; RESP 16; TEMP 36.9; O2SAT 100
[2021-07-20] MEDS: Famotidine 20 MG Tablet PO (08:57)
[2021-07-20] MEDS: Lisinopril 10 MG Tablet PO (08:57)
[2021-07-20] MEDS: levoFLOXacin IV 750 MG/150 ML BAG 100 MG IV (08:57)
--- NOTE | 2021-07-20 09:25 | CON.PCM_ITS ---
Assessment & Plan Assessment/Plan (1) Ureteral stricture, left: (2) Nausea: PLAN: Home today per medicine on antibiotics I spoke with Dr. Barahona from [place] he is aware that she will be following up with him LARRY. HPI Consult Data Date of Consult: 07/20/21 HPI Narrative HPI Narrative: ADDIS TORRES, is a 21 F who presents nausea, uncontrolled abdominal pain. She is status post ureteral stent change. Has a known significant ureteral stricture and has yet to follow-up in [place] for surgical planning. Coming through the emergency department yesterday, arrangements were made and a percutaneous nephrostomy tube was placed secondary to continued hydronephrosis despite the ureteral stent. This morning her nausea has resolved and her pain continues. We discussed the importance of her following up for surgical intervention and that there is nothing further we can do for her here at this facility. She is aware that she will keep her tube until she follows up for surgery in [place]. [facility] Medical History Alcohol abuse Cancer Depression Endometrial cancer Hydronephrosis Hypertension Menorrhagia Non-smoker Retained ureteral stent Ureter injury Ureteral stricture, left Home Medications acetaminophen [Tylenol] 650 mg PO Q4H PRN PRN #0 tab 07/12/21 [Rx Last Taken Unknown] famotidine 20 mg PO BID 30 Days #60 tab 07/12/21 [Rx Last Taken Unknown] lisinopril 10 mg PO DAILY 30 Days #30 tab 07/12/21 [Rx Last Taken Unknown] ondansetron 4 mg PO Q6H PRN #10 tab 07/18/21 [Rx Last Taken Unknown] mirtazapine 15 mg PO QHS 07/19/21 [History Last Taken Unknown] naproxen 500 mg PO BID 07/19/21 [History Last Taken Unknown] Allergy/AdvReac Type Severity Reaction Status Date / Time ceftriaxone [From Rocephin] Allergy Hives Verified 07/18/21 18:12 promethazine [From Phenergan] Allergy Vomiting Verified 07/18/21 18:12 lactated ringers Allergy Hives Uncoded 07/19/21 17:48 Family History Father No problems noted. Mother No problems noted. Surgical History History of hysterectomy for cancer History of renal stent Social History household members: family Smoking Status: Never smoker alcohol intake: former substance use type: does not use ROS ROS Narrative Complaints of pain between her ribs this morning as well as left lower quadrant discomfort. No nausea or vomiting. No other new complaints. Physical Exam Narrative Alert, oriented and very comfortable in bed this morning. This is the most talkative she has been in all of the times that I have seen her. Her abdomen is soft nontender nondistended. Her percutaneous nephrostomy tube is draining clear yellow urine. No other new changes in her physical exam. Medical Records Data Medical Nutrition Assessment Dietitian: Malnutrition Criteria Met Start: 07/19/21 15:47 Freq: Status: Active Protocol: Document 07/19/21 15:47 SLA (Rec: 07/19/21 15:47 SLA [id number]) Nutrition Malnutrition Evidence of Malnutrition Exists Yes Malnutrition (severe): Chronic Evidenced By Suboptimal Energy Intake ( Severe),Weight Loss (Moderate) Clinical Problem Chronic Disease or Condition Related Malnutrition Etiology related to pyelonephritis and issues w/ nausea and vomiting Signs/Symptoms as evidenced by 12.7% wt loss x 7 mo/1.7% wt loss x 1 wk and pt with <50% po intake for >1 month Status Active Problem Recommendation Dietitian Recommendations/Changes Will provide 8 oz vanilla ensure enlive once diet advanced past clear liquids for increased nutrition if consumed. Lab / Micro Data Result Diagrams: 07/20/21 06:22 07/20/21 06:22 Labs: Laboratory Results - last 24 hr 07/19/21 08:58: Urine RBC 50-100 SEEN, Urine WBC 10-25 SEEN, Ur Squamous Epith Cells 0-5 SEEN, Urine Bacteria 1+, Urine Mucus 0 SEEN 07/19/21 09:20: WBC 11.3 H, RBC 4.80, Hgb 11.4 L, Hct 36.6 L, MCV 76.3 L, MCH 23.8 L, MCHC 31.1 L, RDW Std Deviation 48.1 H, RDW Coeff of Roz 17.3 H, Plt Coun t 359, MPV 8.7, Immature Gran % (Auto) 0.400, Neut % (Auto) 76.2 H, Lymph % (Auto) 13.7 L, Wood % (Auto) 7.5, Eos % (Auto) 1.8, Baso % (Auto) 0.4, Absolute Neuts (auto) 8.6 H, Absolute Lymphs (auto) 1.55, Nucleated RBC % 0 07/19/21 09:20: Sodium 134 L, Potassium 3.1 L, Chloride 99, Carbon Dioxide 25.0, Anion Gap 10, BUN 12, Creatinine 0.65, Estim Creat Clear Calc 143.08, Est GFR (MDRD) Af Amer 148, Est GFR (MDRD) Non-Af 122, BUN/Creatinine Ratio 18.5, Glucos e 84, Calcium 9.2 07/19/21 09:20: Lactic Acid 0.8 07/19/21 11:29: PT 15.1 H, INR 1.3, APTT 29.7 07/20/21 06:22: WBC 9.0, RBC 4.46, Hgb 10.6 L, Hct 35.7 L, MCV 80.0 L, MCH 23.8 L, MCHC 29.7 L, RDW Std Deviation 51.4 H, RDW Coeff of Roz 17.7 H, Plt Count 262, MPV 8.7, Immature Gran % (Auto) 0.400, Neut % (Auto) 70.7 H, Lymph % (Auto) 18.5 L, Wood % (Auto) 6.9, Eos % (Auto) 3.2, Baso % (Auto) 0.3, Absolute Neuts (auto) 6.3, Absolute Lymphs (auto) 1.66, Nucleated RBC % 0 07/20/21 06:22: Sodium 140, Potassium 3.8, Chloride 109 H, Carbon Dioxide 26.0, Anion Gap 5, BUN 9, Creatinine 0.55, Estim Creat Clear Calc 169.09, Est GFR (MDRD) Af Amer 179, Est GFR (MDRD) Non-Af 148, BUN/Creatinine Ratio 16.4, Glucose 75, Calcium 8.5, Magnesium 2.2 07/20/21 06:22: Phosphorus 3.3 Micro: Microbiology 07/19/21 09:20 Nasal Secretion SARS-CoV-2 Antigen (Rapid) - Final Radiology Impression Abdomen/Pelvis CT 07/19/21 09:07 IMPRESSION: Progressive left hydronephrosis and hydroureter with perinephric and periureteric stranding. Stable position of the double-J stent catheter on the left side. Persistent increased markings in the region of the cul-de-sac. Small amount of air is seen within the vaginal cuff. Electronically Signed: Pardeep Wetzel MD at 10:06 EST , Service support , Nephrostomy Tube Change 07/19/21 12:28 IMPRESSION: 1. The percutaneous left nephrostomy catheter is in good position with the pigtail portion located in the right renal pelvis. 2. Conscious sedation protocol was followed. Electronically Signed: Pardeep Wetzel MD at 14:28 EST , Service support ,
[2021-07-20] MEDS: oxyCODONE 5 MG Tablet PO (11:01)
[2021-07-20 11:57] VITALS: O2SAT 96
--- NOTE | 2021-07-20 13:22 | CT_ITS ---
STUDY: CT ABDOMEN AND PELVIS WITHOUT CONTRAST REASON FOR EXAM: Female, 21 years old. Pain, left nephrostomy hysterectomy left ureteral injury RADIATION DOSAGE (If Supplied By Facility): CTDIvol = ( 8.90 ) mGy, DLP = ( 493.73 ) mGycm TECHNIQUE: Transaxial images were obtained from the dome of the diaphragm to the symphysis pubis without oral contrast, and without intravenous contrast. Sagittal and coronal images were reconstructed. Individualized dose optimization techniques were used for this CT. COMPARISON: None. FINDINGS: Appearance is similar to prior. The visualized lung bases are unremarkable. The visualized portions of the heart are within normal limits. Normal liver. Normal gallbladder and extrahepatic biliary system. Normal spleen. Normal pancreas. Normal bilateral adrenal glands. Right kidney is normal without hydronephrosis. Since prior left ureteral stent has been exchanged for an nephroureteral reentry catheter position. Proximal loop is in the renal pelvis and distal loop is in the bladder. There is moderate amount of inflammation along the left ureter and perirenal space. The kidney is decompressed and there is no hydronephrosis. There is minimal gas along the nephrostomy portion of the catheter without fluid collection or hematoma. There is no intestinal obstruction. However, there is progressive accumulation of desiccated stool throughout the colon with increasing amount of retained stool in the rectum. Normal abdominal aorta. Normal inferior vena cava. Normal retroperitoneum. Normal urinary bladder. There is hysterectomy with expected mild pelvic inflammation. Ovaries are normal. Normal abdominal wall. Normal osseous structures. CT/Abdomen/Pelvis without Cont IMPRESSION: 1. Expected appearance of left nephroureteral catheter, decompressed left collecting system with nondilated ureter. 2. Inflammation along the left perirenal space and ureter related to stated ureteral injury. 3. Post hysterectomy pelvic inflammation. No fluid collection. 4. Accumulation and desiccation/compaction of stool, impending rectal fecal impaction. Electronically Signed: Raven Gonzalez MD at 16:10 EST Tel , Service support ,
[2021-07-20] MEDS: Polyethylene Glycol 3350 17 GM PACKET PO (13:48)
[2021-07-20] MEDS: 0.9% Saline Lock 10 ML Syringe IV ×2 (13:48→22:07)
[2021-07-20] MEDS: Ketorolac 30 MG/ML Syringe IV (13:48)
[2021-07-20] MEDS: Haloperidol Lactate 5 MG/ML Vial 1 MG IV ×3 (13:48→22:08)
[2021-07-20 14:55] VITALS: BP 152/98; PULSE 90; RESP 16; TEMP 37.2; O2SAT 100
[2021-07-20] MEDS: oxyCODONE 5 MG Tablet 10 MG PO (15:24)
--- NOTE | 2021-07-20 15:49 | PCM.PN.HOSP ---
Subjective Subjective Patient complains of ongoing left-sided pain with nausea and vomiting. The oxycodone was not helpful so the dose has been increased as we are trying to transition to oral medications in preparation for discharge. Objective Data Objective Data Vital Signs: Vital Signs Temp Pulse Resp BP Pulse Ox 99.0 F 90 16 152/98 H 100 07/20/21 14:55 07/20/21 14:55 07/20/21 14:55 07/20/21 14:55 07/20/21 14:55 Oxygen Flow Rate (L/min) [6] 2 Oxygen Flow Rate (L/min) [5] 2 Oxygen Flow Rate (L/min) [4] 2 Oxygen Flow Rate (L/min) [3] 2 Oxygen Flow Rate (L/min) 2 Oxygen Delivery Method [6] Nasal Cannula Oxygen Delivery Method [5] Nasal Cannula Oxygen Delivery Method [4] Nasal Cannula Oxygen Delivery Method [3] Nasal Cannula Oxygen Delivery Method [2] Room Air Oxygen Delivery Method [1 ( Room Air Initial Baseline)] Oxygen Delivery Method Room Air Weight: 79.379 kg Body Mass Index (BMI) 25.8 Intake & Output: Intake and Output for Last 24 Hours 07/18/21 07/19/21 07/20/21 23:59 23:59 23:59 Intake Total 1542.50 / 2022.50 2415.00 / 2415.00 Output Total 890 / 1440 1275 / 1275 Balance 652.50 / 582.50 1140.00 / 1140.00 Medical Nutrition Assessment Dietitian: Malnutrition Criteria Met Start: 07/19/21 15:47 Freq: Status: Active Protocol: Document 07/19/21 15:47 CECILY (Rec: 07/19/21 15:47 [facility] [id number]) Nutrition Malnutrition Evidence of Malnutrition Exists Yes Malnutrition (severe): Chronic Evidenced By Suboptimal Energy Intake ( Severe),Weight Loss (Moderate) Clinical Problem Chronic Disease or Condition Related Malnutrition Etiology related to pyelonephritis and issues w/ nausea and vomiting Signs/Symptoms as evidenced by 12.7% wt loss x 7 mo/1.7% wt loss x 1 wk and pt with <50% po intake for >1 month Status Active Problem Recommendation Dietitian Recommendations/Changes Will provide 8 oz vanilla ensure enlive once diet advanced past clear liquids for increased nutrition if consumed. Lab / Micro Data Result Diagrams: 07/20/21 06:22 07/20/21 06:22 Labs: Laboratory Results - last 24 hr 07/20/21 06:22: WBC 9.0, RBC 4.46, Hgb 10.6 L, Hct 35.7 L, MCV 80.0 L, MCH 23.8 L, MCHC 29.7 L, RDW Std Deviation 51.4 H, RDW Coeff of Roz 17.7 H, Plt Count 262, MPV 8.7, Immature Gran % (Auto) 0.400, Neut % (Auto) 70.7 H, Lymph % (Auto) 18.5 L, Fannin % (Auto) 6.9, Eos % (Auto) 3.2, Baso % (Auto) 0.3, Absolute Neuts (auto) 6.3, Absolute Lymphs (auto) 1.66, Nucleated RBC % 0 07/20/21 06:22: Sodium 140, Potassium 3.8, Chloride 109 H, Carbon Dioxide 26.0, Anion Gap 5, BUN 9, Creatinine 0.55, Estim Creat Clear Calc 169.09, Est GFR (MDRD) Af Amer 179, Est GFR (MDRD) Non-Af 148, BUN/Creatinine Ratio 16.4, Glucose 75, Calcium 8.5, Magnesium 2.2 07/20/21 06:22: Phosphorus 3.3 Micro: Microbiology 07/19/21 14:18 Urine, Nephrostomy Urine Culture - Preliminary Culture exhibits no growth. 07/19/21 08:58 Urine, Clean Catch Urine Culture - Preliminary Gram negative dasia Mixed Gram Positive Organisms 07/19/21 09:20 Nasal Secretion SARS-CoV-2 Antigen (Rapid) - Final Physical Exam Const alert, oriented x3 and no apparent distress Constitutional Narrative: Young white female lying in bed, appears somewhat uncomfortable but nontoxic, nursing at bedside General Appearance: cooperative Exam Limitations: no limitations HEENT normocephalic, head/scalp atraumatic, hearing grossly normal bilaterally, moist oral mucous membranes and oropharynx normal Head and Scalp: normocephalic Eyes Eyes Narrative: No scleral icterus Resp normal respiratory effort, no retractions, no use of accessory muscles and clear to auscultation bilaterally Auscultation: Negative for crackles, rales, rhonchi or wheezes Cardio regular rate, regular rhythm, S1 normal heart sound, S2 normal heart sound, no murmurs, no rub, no gallops, no clicks and no JVD GI soft to palpation and non-distended GI Narrative: Tender and guarding with left flank palpation, bowel sounds normal Palpation: tender and guarding Extremity normal to inspection and no clubbing, cyanosis or edema Peripheral Pulses: Yes pulses 2+ throughout Skin Skin Narrative: Nephrostomy tube in place with slightly pink-tinged urine but good output Neuro oriented x3, moves all extremities and no focal motor deficits Sensorium / Orientation: awake and alert Speech: speech normal Assessment & Plan Assessment/Plan (1) Pyelonephritis: (2) Hydronephrosis: (3) Intractable vomiting with nausea: (4) Acute flank pain: PLAN: Suspected pyelonephritis/hydronephrosis/hematuria -Patient with history of left ureteral injury 6 to 7 months ago during total hysterectomy secondary to uterine cancer -Developed hydronephrosis despite stent placement -Stent was exchanged at last admission -Percutaneous nephrostomy tube placed on 07/19/2021 -Urine culture from clean-catch and nephrostomy tube has no growth to date -Levaquin to continue for now but if culture remains negative will discontinue -Urology following -Pain control with p.o. versus IV pain medication to patient tolerance -Dany CT scan pending with worsening pain and nausea continuing status post nephrostomy tube placement -Avoid naproxen -Patient is to follow-up with Dr. Barahona at [facility] Intractable nausea and vomiting -Continue IV fluids at 75 -Antiemetics adjusted and Haldol added -Nephrostomy tube in place -Diet ordered at to tolerance Hypokalemia -Resolved Hypovolemic hyponatremia -Resolved Hypertension -Continue home medication of lisinopril 10 mg daily Depression -Continue mirtazapine GERD -Continue famotidine History of endometrial cancer -Stable DVT prophylaxis -Early ambulation protocol -Low risk CODE STATUS -Full code Charges/Coding Visit Charges Inpatient E&M: 98446 [facility] Hosp L2
[2021-07-20 21:22] VITALS: BP 152/108; PULSE 98; RESP 14; TEMP 37.6; O2SAT 97
[2021-07-21 00:15] VITALS: BP 119/80; PULSE 91; RESP 16; TEMP 36.8; O2SAT 98
[2021-07-21] MEDS: Haloperidol Lactate 5 MG/ML Vial 1 MG IV ×2 (05:31→09:23)
[2021-07-21] MEDS: 0.9% Saline Lock 10 ML Syringe IV (05:32)
[2021-07-21] MEDS: Morphine 2 MG/ML Syringe IV (05:32)
[2021-07-21] MEDS: 0.9% Normal Saline 1,000 ML 75 ML IV (05:39)
[2021-07-21 05:45] VITALS: BP 113/78; PULSE 96; RESP 14; TEMP 37; O2SAT 98
[2021-07-21 06:53] LABS: Absolute Lymphocyte Count 1.74 X10^3/uL (0.83-4.51); Absolute Neutrophil Count 5.3 X10^3/uL (2.0-7.7); Basophil# 0.04 X10^3/uL; Basophil% 0.5 % (0-1); Eosinophil# 0.23 X10^3/uL; Eosinophils% 2.9 % (0-5); Hematocrit 34.4 % (37-47); Hemoglobin 10.4 g/dL (12.0-15.0); Lymphocyte # 1.74 X10^3/ul (0.83-4.51); Mean Corp Hgb Conc 30.2 g/dL (32-36); Mean Corpuscular Hgb 23.6 pg (27.0-32.0); Monocyte# 0.59 X10^3/uL; Monocyte% 7.4 % (0-10); NRBC Flagged by Analyzer 0 % (0-5); Neutrophil # 5.29 X10^3/uL (2.7-7.7); Neutrophil % 66.8 % (47-70); Platelet Count 260 K/mm3 (150-450); RBC Distribution Width CV 17.5 % (11.6-14.6); RBC Distribution Width SD 49.5 fl (35.1-43.9); Red Blood Count 4.41 M/mm3 (4.2-5.4); White Blood Count 7.9 K/mm3 (4.4-11.0)
[2021-07-21 07:06] VITALS: O2SAT 98
[2021-07-21 07:14] LABS: Anion Gap 6 (5-15); BUN 6 mg/dL (7-18); BUN/Creat Ratio 11.8 RATIO (10-20); Calcium,Total 8.6 mg/dL (8.5-10.1); Chloride 103 mmol/L (98-107); Creatinine, Serum 0.51 mg/dL (0.55-1.02); EST Glomerular Filtration Rate 162 mL/min (>60); Est Glom Filt Rate - Afr Amer 196 mL/min (>60); Estimated Creatinine Clearance 182.36 ml/min; Glucose 85 mg/dL (74-106); Potassium 3.3 mmol/L (3.5-5.1); Sodium Level 136 mmol/L (136-145)
[2021-07-21] MEDS: Acetaminophen 325 MG Tablet 650 MG PO ×2 (09:22→13:43)
[2021-07-21] MEDS: Lisinopril 10 MG Tablet PO (09:22)
[2021-07-21] MEDS: Polyethylene Glycol 3350 17 GM PACKET PO ×2 (09:22→11:35)
[2021-07-21] MEDS: Famotidine 20 MG Tablet PO (09:22)
[2021-07-21] MEDS: oxyCODONE 5 MG Tablet 10 MG PO ×2 (09:22→13:43)
[2021-07-21] MEDS: Senna/Docusate Sodium 1 Tablet 2 TABLET PO (09:22)
[2021-07-21] MEDS: Ketorolac 30 MG/ML Syringe IV (09:23)
[2021-07-21] MEDS: levoFLOXacin IV 750 MG/150 ML BAG 100 MG IV (09:27)
[2021-07-21] MEDS: Potassium Chloride 10mEq/100mL 10 MEQ/100 ML IV.SOLN. 100 MEQ IV BOLUS ×4 (09:30→13:40)
[2021-07-21 10:28] VITALS: BP 122/71; PULSE 85; RESP 16; TEMP 37.2; O2SAT 100
--- NOTE | 2021-07-21 13:45 | NURSING ---
Spoke to patient and her mother. Both stated that the patient's nausea and pain are under control and would like to go home to deal with the constipation. Patient walking the hallway with staff and taking miralax and senna. Spoke to Dr. Zepeda who stated that she will discharge her home with instructions to take stool softeners and continue ambulating and drinking fluids. Mother and patient both updated.
--- NOTE | 2021-07-21 14:11 | PCM.DC.SUM ---
Providers Date of Admission: 07/19/21 Primary Care Physician: EDWIGE Henry Consultations 07/19/21 12:12 Consult: Urology Routine Consulting Provider: Cate Vanegas Reason for Consult: Hydroureter/hydronephrosis EMERGENT Consult: No MD Notified: Yes Date Notified: 07/19/21 Time Notified: 11:33 Method of Notification: in ED Reason For Visit: PYELONEPHRITIS Diagnosis Discharge Diagnosis (1) Hydronephrosis: Status: Resolved Code(s): N13.30 - Unspecified hydronephrosis (2) Intractable vomiting with nausea: Status: Resolved Code(s): R11.2 - Nausea with vomiting, unspecified (3) Ureteral stricture, left: Status: Acute Code(s): N13.5 - Crossing vessel and stricture of ureter without hydronephrosis (4) Renal colic: Status: Acute Code(s): N23 - Unspecified renal colic Medications at Discharge Home Medications acetaminophen [Tylenol] 650 mg PO Q4H PRN PRN #0 tab 07/12/21 famotidine 20 mg PO BID 30 Days #60 tab 07/12/21 lisinopril 10 mg PO DAILY 30 Days #30 tab 07/12/21 ondansetron 4 mg PO Q6H PRN #10 tab 07/18/21 mirtazapine 15 mg PO QHS 07/19/21 naproxen 500 mg PO BID 07/19/21 haloperidol 1 mg PO TID #20 tab 07/21/21 oxycodone 10 mg PO Q6H PRN 3 Days #12 tab 07/21/21 polyethylene glycol 3350 [Miralax] 17 g PO BID #238 g 07/21/21 sennosides-docusate sodium [Senna-S] 1 tab-cap PO QHS #30 tab 07/21/21 Hospital Course Operations None Procedures - (Left nephrostomy tube placement) Summary of Care Provided Minutes Spent on Discharge: 37 Hospital Course: ADDIS TORRES, is a 21 F who presented to the emergency department at [facility] on 07/19/2021 after being in the ED the evening prior for abdominal pain, vomiting, and hematuria. She has had several hospitalizations here with regards to her urinary tract. The most recent was at admission from 07/15/2021 to 07/16/2021 for intractable nausea and vomiting as well as abdominal pain. During that hospitalization she underwent a cystoscopy and a left retrograde pyelogram with left ureteral stent change done by Dr. Vanegas. A referral has been made to Dr. Barahona in [facility] for follow-up as her case is complicated and the origins of her issues occurred at that institution. Upon discharge she had some mild intermittent nausea but her symptoms had resolved. Last evening she was seen in the emergency department and was discharged home after some Toradol and Zofran. She stated she came back on the day of admission because she had persistent left-sided abdominal pain, nausea, vomiting and the inability to keep down food. She also had developed hematuria. A CT of her abdomen and pelvis was performed in the emergency department and showed progressive left hydronephrosis and hydroureter with perinephritic stranding and periureteral stranding with stable position of a double-J stent catheter on the left side. The case was discussed with Dr. Vanegas from urology by the emergency department physician and she recommended PERC nephrostomy to be placed in IR. That was able to be completed on 07/19/2021 and was done so without difficulty. Cultures were sent from her nephrostomy tube and were negative for bacterial growth. The patient was reevaluated on 07/21/2021 and was having persistent nausea and vomiting with increased pain. She had good urine output from her nephrostomy tube. Given her increased pain and persistent nausea and vomiting I did a repeat CT of her abdomen pelvis without contrast that showed a decompressed left collecting system and a nondilated ureter with inflammation along the left perirenal space and ureter related to history of ureteral injury, post hysterectomy pelvic inflammation with no fluid collection and accumulation and desiccation/compaction of stool with them pending rectal fecal impaction. The patient was placed on a bowel regimen but refused her MiraLAX the night prior to discharge because of nausea. She had been placed on as needed pain medication as well as Haldol for nausea as she has had good experience with this in the past. On 07/21/2021 she had no more emesis and minimal nausea with improved pain and was able to be discharged home in stable condition. A prescription for Haldol, short course of opiates for pain and recommended continued use of MiraLAX and senna until bowel movements were more regular were given to the patient prior to discharge. She is to follow-up with Dr. Reyes at [facility] as soon as possible for continued care. Dr. Vanegas did evaluate the patient during her hospitalization and has indicated there is nothing else we can do at [facility] for her and if she returns to the emergency department with symptoms the recommendation would be to transfer her to [place] for continued care. Discharge diagnoses: Left hydronephrosis status post percutaneous nephrostomy tube placement Hematuria Ureteral stent Nausea and vomiting Hypokalemia-resolved Hyponatremia-resolved Hypertension Depression GERD History of uterine cancer Physical Exam Const alert, oriented x3 and no apparent distress Constitutional Narrative: Young white female lying in bed, appears more comfortable and nontoxic, nursing at bedside General Appearance: cooperative, comfortable and well developed Orientation / Consciousness: awake Exam Limitations: no limitations HEENT normocephalic, head/scalp atraumatic, hearing grossly normal bilaterally, moist oral mucous membranes and oropharynx normal HEENT Narrative: Mallampati 2, no thrush Eyes PERRL, EOMs intact bilaterally and conjunctivae normal Eyes Narrative: No scleral icterus Neck no lymphadenopathy, supple and no JVD Neck Narrative: Trachea midline no thyroid enlargement Resp normal respiratory effort, no retractions, no use of accessory muscles and clear to auscultation bilaterally Auscultation: Negative for crackles, rales, rhonchi or wheezes Cardio regular rate, regular rhythm, S1 normal heart sound, S2 normal heart sound, no murmurs, no rub, no gallops, no clicks and no JVD GI soft to palpation and non-distended GI Narrative: Tender and guarding with left flank palpation, bowel sounds normal, nephrostomy tube in place with pink-tinged urine output-output is good Palpation: tender and guarding Extremity normal to inspection and no clubbing, cyanosis or edema Skin no rashes or lesions noted, no wounds, skin turgor normal, no jaundice, no petechiae and no mottling Neuro oriented x3, moves all extremities and no focal motor deficits Sensorium / Orientation: awake and alert Speech: speech normal Psych Psych Narrative: Affect is somewhat flat and mood seems slightly depressed eye contact is average Medical Records Data Medical Nutrition Assessment Dietitian: Malnutrition Criteria Met Start: 07/19/21 15:47 Freq: Status: Active Protocol: Document 07/19/21 15:47 SLA (Rec: 07/19/21 15:47 CECILY [id number]) Nutrition Malnutrition Evidence of Malnutrition Exists Yes Malnutrition (severe): Chronic Evidenced By Suboptimal Energy Intake ( Severe),Weight Loss (Moderate) Clinical Problem Chronic Disease or Condition Related Malnutrition Etiology related to pyelonephritis and issues w/ nausea and vomiting Signs/Symptoms as evidenced by 12.7% wt loss x 7 mo/1.7% wt loss x 1 wk and pt with <50% po intake for >1 month Status Active Problem Recommendation Dietitian Recommendations/Changes Will provide 8 oz vanilla ensure enlive once diet advanced past clear liquids for increased nutrition if consumed. Weight / BMI Weight Weight: 79.379 kg Body Mass Index (BMI) 25.8 ABG / Lab / Microbiology Data Result Diagrams: 07/21/21 06:43 07/21/21 06:43 Laboratory: Laboratory Results - last 24 hr 07/21/21 06:43: WBC 7.9, RBC 4.41, Hgb 10.4 L, Hct 34.4 L, MCV 78.0 L, MCH 23.6 L, MCHC 30.2 L, RDW Std Deviation 49.5 H, RDW Coeff of Roz 17.5 H, Plt Count 260, MPV 9.0, Immature Gran % (Auto) 0.400, Neut % (Auto) 66.8, Lymph % (Auto) 22.0, [place] % (Auto) 7.4, Eos % (Auto) 2.9, Baso % (Auto) 0.5, Absolute Neuts (auto) 5.3, Absolute Lymphs (auto) 1.74, Nucleated RBC % 0 07/21/21 06:43: Sodium 136, Potassium 3.3 L, Chloride 103, Carbon Dioxide 27.0, Anion Gap 6, BUN 6 L, Creatinine 0.51 L, Estim Creat Clear Calc 182.36, Est GFR (MDRD) Af Amer 196, Est GFR (MDRD) Non-Af 162, BUN/Creatinine Ratio 11.8, Glucose 85, Calcium 8.6 Microbiology: Microbiology 07/19/21 08:58 Urine, Clean Catch Urine Culture - Final Acinetobacter baumannii Mixed Gram Positive Organisms 07/19/21 10:25 Blood Culture (Wb) - Left Wrist Blood Culture - Preliminary No growth in 48 hours. 07/19/21 09:20 Blood Culture (Wb) - Anticubital Left Blood Culture - Preliminary No growth in 48 hours. 07/19/21 14:18 Urine, Nephrostomy Urine Culture - Preliminary Culture exhibits no growth. 07/19/21 09:20 Nasal Secretion SARS-CoV-2 Antigen (Rapid) - Final Radiography Diagnostic Testing: Radiology Impression Abdomen/Pelvis CT 07/20/21 13:22 IMPRESSION: 1. Expected appearance of left nephroureteral catheter, decompressed left collecting system with nondilated ureter. 2. Inflammation along the left perirenal space and ureter related to stated ureteral injury. 3. Post hysterectomy pelvic inflammation. No fluid collection. 4. Accumulation and desiccation/compaction of stool, impending rectal fecal impaction. Electronically Signed: Raven Gonzalez MD at 16:10 EST Tel , Service support , D/C Instructions Discharge Diet: No restrictions Meaningful Use Info Meaningful Use Diagnoses (Choose all that apply): None applicable Discharge Plan Admission Admit Date/Time: 07/19/21 11:28 Primary Reason for Your Visit: Hydronephrosis-worsening Attending Provider: Ashley Zepeda Consulting Providers: Cate Vanegas Instructions Patient Instructions: Percutaneous Nephrostomy Additional Instructions / Restrictions: 1. Please follow-up with Dr. Barahona at [facility] as soon as possible 2. Use senna and MiraLAX [id number] daily until bowel movements are more regular Discharge Orders/Prescriptions Prescriptions: New oxycodone 5 mg Tablet 10 mg PO Q6H PRN (Reason: pain (scale score 7-10)) 3 Days Qty: 12 RF: 0 haloperidol 1 mg tablet 1 mg PO TID Qty: 20 RF: 0 sennosides-docusate sodium [Senna-S] 8.6-50 mg tablet 1 tab-cap PO QHS Qty: 30 RF: 0 polyethylene glycol 3350 [Miralax] 17 gram/dose powder 17 g PO BID Qty: 238 RF: 0 Continued acetaminophen [Tylenol] 325 mg Tablet 650 mg PO Q4H PRN PRN (Reason: Fever, pain 1-10/10) Qty: 0 RF: 0 famotidine 20 mg Tablet 20 mg PO BID 30 Days Qty: 60 RF: 0 lisinopril 10 mg Tablet 10 mg PO DAILY 30 Days Qty: 30 RF: 0 ondansetron 4 mg tablet,disintegrating 4 mg PO Q6H PRN (Reason: nausea and vomiting) Qty: 10 RF: 0 mirtazapine 15 mg tablet,disintegrating 15 mg PO QHS RF: 0 No Action naproxen 500 mg tablet 500 mg PO BID RF: 0 Referrals / Follow Up: EDWIGE Henry [Other] - Within 2 Weeks (2 weeks) EDWIGE Henry [Other] Disposition Disposition (needs filled in before D/C Order can be placed): Home, Self Care Charges/Coding Visit Charges Inpatient E&M: 66110 Disch Hosp
[2021-07-21 14:18] VITALS: BP 115/73; PULSE 78; RESP 16; TEMP 37.3; O2SAT 100
== END 2021-07-21 14:56 | disposition home or self-care (01) ==
LOC: ED 11:15 → PCU 11:54
PROVIDERS: Admitting Provider Internal Medicine; Emergency Provider Emergency Medicine; Visit Provider Internal Medicine
DX: N13.1 Hydronephrosis with ureteral stricture, not elsewhere classified (principal); I10 Essential (primary) hypertension; E87.1 Hypo-osmolality and hyponatremia; E87.6 Hypokalemia; F32.A Depression, unspecified; Z79.899 Other long term (current) drug therapy; Z85.42 Personal history of malignant neoplasm of other parts of uterus; K21.9 Gastro-esophageal reflux disease without esophagitis; N23 Unspecified renal colic
CPT/HCPCS: 36415; 50432; 74176; 80048; 81001; 83605; 83735; 84100; 85025; 85610; 85730; 87040; 87077; 87086; 87088; 87186; 87426; 96361; 96365; 96366; 96375; 96376; 97802; 99156; 99218; 99285; J7030; J7040; J7120; A4216; G0378; J2405

== ENCOUNTER 2021-07-22 15:40 | Emergency (ER) | payer MEDICAID, SELFPAY ==
[2021-07-22 15:42] VITALS: BP 161/116; PULSE 98; RESP 16; TEMP 37; O2SAT 100; BMI 27.2
--- NOTE | 2021-07-22 16:09 | CT_ITS ---
STUDY: CT ABDOMEN AND PELVIS WITH CONTRAST REASON FOR EXAM: Female, 21 years old. Left flank pain. RADIATION DOSAGE (If Supplied By Facility): CTDIvol = ( 13.22 ) mGy, DLP = ( 927.96 ) mGycm TECHNIQUE: Transaxial images were obtained from the dome of the diaphragm to the symphysis pubis without oral contrast. IV 100mL Isovue-370 was administered. Sagittal and coronal images were reconstructed. Individualized dose optimization techniques were used for this CT. COMPARISON: 07/20/2012. FINDINGS: The visualized lung bases are unremarkable. The visualized portions of the heart are within normal limits. Normal liver. Normal gallbladder and extrahepatic biliary system. Normal spleen. Normal pancreas. Normal bilateral adrenal glands. Normal right kidney. Normal right ureter. There is a nephrostomy catheter entering the mid kidney with its pigtail in the renal pelvis. There is also a ureteral catheter extending from the renal pelvis downward along the course left ureter into the urinary bladder. No hydronephrosis. Areas of slightly decreased enhancement within the left kidney most marked in the upper and lower poles and possibility of pyelonephritis cannot be entirely ruled out. Normal visualized stomach. Normal small intestine. Normal colon. The appendix is visualized and appears normal. Normal abdominal aorta. Normal inferior vena cava. Nonspecific subcentimeter left periaortic lymphadenopathy. Normal urinary bladder. Unremarkable vaginal cuff. There are retained ovaries bilaterally demonstrating multiple follicles. There is no pelvic lymphadenopathy. No free air or free fluid is seen within the peritoneal cavity. Small umbilical hernia of omental fat. The abdominal wall is otherwise unremarkable. No osseous changes. CT/Abdomen/Pelvis W IV Cont ONLY IMPRESSION: 1. Stable left nephrostomy tube and left nephroureteral catheter unchanged from prior study. 2. Areas of decreased enhancement within the left kidney. Question nephritis. 3. Decreased stranding along the course of the left ureter when compared to the previous examination. 4. No other major interval change. Electronically Signed: Esequiel Cisneros DO at 18:35 EST Tel [phone], Service support ,
--- NOTE | 2021-07-22 16:14 | EDS_ITS ---
HPI History of Present Illness Chief Complaint: Nausea/Vomiting Narrative Narrative: 21-year-old female presenting to the emergency room with left flank pain which has been persistent. Patient is a patient of Dr. Vanegas. Patient was recently hospitalized about a week ago for hydroureteronephrosis and had a percutaneous nephrostomy tube placed because he has ongoing issues with her left ureter. She states this stems from an injury she sustained to her left ureter. Patient previously had a referral to Dr. Barahona to place a ureteral stent. Patient did return on 07 15 for nausea and vomiting abdominal pain. She was hospitalized for this. On 07/19 she presented again with similar flank pain and nausea and vomiting and this is when she had a nephrostomy tube placed. She was hospitalized and did have some constipation issues. She has been home since the . Her symptoms have continued. Continued and she is taking MiraLAX with some stool but no large bowel movements. Her nephrostomy tube has been putting out urine. She was counseled that she will need to see Dr. Barahona on an outpatient basis. It does appear that Dr. Vanegas would prefer transfer to [facility] should she have any ongoing issues with this. The patient states she is aware of this and did call but does not have an appointment until next month. She states that she could not get a ride into [place] and she called 911. She does admit to a fall today when she fell on her left side. She did not believe she damaged the nephrostomy tube as it is still putting out urine. She does have pain associated with this but no bruising. [facility] Medical History Alcohol abuse Cancer Depression Endometrial cancer Hydronephrosis Hypertension Menorrhagia Non-smoker Retained ureteral stent Ureter injury Ureteral stricture, left Home Medications acetaminophen [Tylenol] 650 mg PO Q4H PRN PRN #0 tab 07/12/21 [Rx Last Taken Unknown] famotidine 20 mg PO BID 30 Days #60 tab 07/12/21 [Rx Last Taken Unknown] lisinopril 10 mg PO DAILY 30 Days #30 tab 07/12/21 [Rx Last Taken Unknown] ondansetron 4 mg PO Q6H PRN #10 tab 07/18/21 [Rx Last Taken Unknown] mirtazapine 15 mg PO QHS 07/19/21 [History Last Taken Unknown] naproxen 500 mg PO BID 07/19/21 [History Last Taken Unknown] haloperidol 1 mg PO TID #20 tab 07/21/21 [Rx Last Taken Unknown] oxycodone 10 mg PO Q6H PRN 3 Days #12 tab 07/21/21 [Rx Last Taken Unknown] polyethylene glycol 3350 [Miralax] 17 g PO BID #238 g 07/21/21 [Rx Last Taken Unknown] sennosides-docusate sodium [Senna-S] 1 tab-cap PO QHS #30 tab 07/21/21 [Rx Last Taken Unknown] Allergy/AdvReac Type Severity Reaction Status Date / Time ceftriaxone [From Rocephin] Allergy Hives Verified 07/22/21 15:44 promethazine [From Phenergan] Allergy Vomiting Verified 07/22/21 15:44 Ringer's solution,lactated Allergy Hives Verified 07/22/21 15:44 Family History Father No problems noted. Mother No problems noted. Surgical History History of hysterectomy for cancer History of renal stent Social History household members: family Smoking Status: Never smoker alcohol intake: former substance use type: does not use ROS ROS ED Constitutional Constitutional ED: Denies chills or fever(s) Eyes Eyes: Denies blurry vision or diplopia ENT ENT ED: Denies rhinorrhea or sore throat Cardiovascular Cardiovascular: Denies chest pain or palpitations Respiratory/Chest Respiratory/Chest: Denies cough or dyspnea Gastrointestinal Gastrointestinal: Reports abdominal pain, constipation, nausea and vomiting; Denies diarrhea Genitourinary Genitourinary ED: Denies dysuria or hematuria Musculoskeletal Musculoskeletal: Denies arthralgias or myalgias Integumentary Denies rash Neurologic Neurologic: Denies headache(s) or paresthesias EXAM Physical Exam Const Vital Signs: 07/22/21 15:42 07/22/21 18:13 Temperature 98.6 F Temperature Source Oral Pulse Rate 98 111 H Respiratory Rate 16 16 Blood Pressure 161/116 H 168/106 H Blood Pressure Mean 131 126 Pulse Ox 100 99 Oxygen Delivery Method Room Air Room Air Positive well nourished General Appearance ED: NAD HEENT Reports moist mucous membranes Negative for trauma Eyes PERRL and EOMs intact bilaterally Resp normal respiratory effort and clear to auscultation bilaterally Cardio regular rate GI normal to inspection, nondistended, normoactive bowel sounds Back/Spine Back/Spine Narrative: Nephrostomy tube is in place. There is yellow urine draining. There is no cellulitic change around the insertion point into the left flank. Neuro oriented x3 and CN's II-XII intact bilaterally Sensorium / Orientation: alert Skin no rashes or lesions noted and no wounds MDM MDM MDM Narrative Medical decision making narrative: Patient presenting with nausea and vomiting as well as left flank pain. On examination her nephrostomy tube appears to be draining and is still in place. Urinalysis shows 150 ketones, 250 occult blood, 100 leukocyte esterase with greater than 100 RBCs seen. There is 0-5 WBCs and no bacteria seen. Because the patient was complaining of pain all over her abdomen I did check LFTs and lipase which were normal. Renal function electrolytes are normal. CT of the abdomen pelvis is performed with IV contrast which shows a stable left nephrostomy tube and a left nephroureteral catheter unchanged from prior study areas of decreased enhancement within the left kidney. The radiologist did question nephritis. There is decrease stranding along the left ureter compared to previous study. Patient's vital signs are stable and she is afebrile. She was given 2 doses of morphine and 2 doses of Mendez ldol which did improve her symptoms. After discussing this with the patient patient feels well enough to be discharged home. She has antiemetics at home. I will give magnesium citrate to her to help her with her constipation issues. Patient is counseled that she will need to follow-up with Dr. Barahona. Impression: 1. Left flank pain 2. History of nephrostomy tube 3. Abdominal pain Lab Data Labs: Laboratory Results - last 24 hr 07/22/21 07/22/21 07/22/21 16:45 17:00 18:26 Sodium Cancelled 138 Potassium Cancelled 3.6 Chloride Cancelled 103 Carbon Dioxide Cancelled 28.0 Anion Gap Cancelled 7 BUN Cancelled 6 L Creatinine Cancelled 0.62 Estim Creat Clear Calc Cancelled 150.00 Est GFR (MDRD) Af Amer Cancelled 156 Est GFR (MDRD) Non-Af Cancelled 129 BUN/Creatinine Ratio Cancelled 9.7 L Glucose Cancelled 87 Calcium Cancelled 9.1 Total Bilirubin Cancelled 0.40 AST Cancelled 15 ALT Cancelled 15 Alkaline Phosphatase Cancelled 58 Total Protein Cancelled 8.3 H Albumin Cancelled 4.0 Globulin Cancelled 4.3 H Albumin/Globulin Ratio Cancelled 0.9 Lipase Cancelled 186 Urine Color Yellow Urine Clarity Sl. Cloudy Urine pH 8.0 Ur Specific [place] 1.020 Urine Protein 100 H Urine Glucose (UA) Normal Urine Ketones 150 A* Urine Occult Blood 250 H Urine Nitrite Negative Urine Bilirubin Negative Urine Urobilinogen 1 H Ur Leukocyte Esterase 100 H Urine RBC > 100 SEEN Urine WBC 0-5 SEEN Ur Squamous Epith Cells 0 SEEN Urine Bacteria 0 SEEN Urine Mucus 0 SEEN Radiography Diagnostic Testing: Clinical Impression(s) from Imaging Studies Abdomen/Pelvis CT 07/22/21 16:09 IMPRESSION: 1. Stable left nephrostomy tube and left nephroureteral catheter unchanged from prior study. 2. Areas of decreased enhancement within the left kidney. Question nephritis. 3. Decreased stranding along the course of the left ureter when compared to the previous examination. 4. No other major interval change. Electronically Signed: Esequiel Cisneros DO at 18:35 EST Tel [phone], Service support , Discharge Plan Triage Chief Complaint: Nausea/Vomiting ED Provider: Josue Trotter Dx/Rx/DC Orders Instructions: ED Vomiting (Adult) Prescriptions: No Action acetaminophen [Tylenol] 325 mg Tablet 650 mg PO Q4H PRN PRN (Reason: Fever, pain 1-06/16) Qty: 0 RF: 0 famotidine 20 mg Tablet 20 mg PO BID 30 Days Qty: 60 RF: 0 lisinopril 10 mg Tablet 10 mg PO DAILY 30 Days Qty: 30 RF: 0 ondansetron 4 mg tablet,disintegrating 4 mg PO Q6H PRN (Reason: nausea and vomiting) Qty: 10 RF: 0 naproxen 500 mg tablet 500 mg PO BID RF: 0 mirtazapine 15 mg tablet,disintegrating 15 mg PO QHS RF: 0 oxycodone 5 mg Tablet 10 mg PO Q6H PRN (Reason: pain (scale score 7-10)) 3 Days Qty: 12 RF: 0 haloperidol 1 mg tablet 1 mg PO TID Qty: 20 RF: 0 sennosides-docusate sodium [Senna-S] 8.6-50 mg tablet 1 tab-cap PO QHS Qty: 30 RF: 0 polyethylene glycol 3350 [Miralax] 17 gram/dose powder 17 g PO BID Qty: 238 RF: 0 Referrals: Henry,INDRANEEL [Other] Disposition Disposition: Home, Self Care
[2021-07-22] MEDS: Haloperidol Lactate 5 MG/ML Vial 1 MG IV ×2 (16:40→17:44)
[2021-07-22] MEDS: Morphine 4 MG/ML Syringe IV ×2 (16:43→17:44)
[2021-07-22] MEDS: 0.9% Normal Saline 1,000 ML 1000 ML IV (16:45)
[2021-07-22 17:48] LABS: ALB/GLOB Ratio 0.9 RATIO (0.9-2.4); AST(SGOT) 15 U/L (15-37); Alanine Aminotransfer ALT/SGPT 15 U/L (13-56); Alkaline Phosphatase 58 U/L (45-117); Anion Gap 7 (5-15); BUN 6 mg/dL (7-18); BUN/Creat Ratio 9.7 RATIO (10-20); Calcium,Total 9.1 mg/dL (8.5-10.1); Chloride 103 mmol/L (98-107); Creatinine, Serum 0.62 mg/dL (0.55-1.02); EST Glomerular Filtration Rate 129 mL/min (>60); Est Glom Filt Rate - Afr Amer 156 mL/min (>60); Globulin 4.3 g/dL (2.2-4.2); Glucose 87 mg/dL (74-106); Lipase 186 U/L (73-393); Potassium 3.6 mmol/L (3.5-5.1); Protein, Total 8.3 g/dL (6.4-8.2); Sodium Level 138 mmol/L (136-145)
[2021-07-22 18:13] VITALS: BP 168/106; PULSE 111; RESP 16; O2SAT 99
[2021-07-22 18:33] LABS: Bacteria 0 SEEN /hpf (None Seen); Mucous, Urine 0 SEEN /hpf (<or=2+); Squamous Epithelial Cells - UA 0 SEEN /hpf (5-10)
[2021-07-22 18:45] LABS: Color, Urine Yellow (Yellow); Glucose, Dipstick Normal (Normal); Leukocyte Esterase-Dipstick 100 /ul (Negative); Nitrite-Dipstick Negative (Negative); Occult Blood-Urine 250 /ul (Negative); Protein-Dipstick 100 mg/dl (Negative); Urine Bilirubin Dipstick Negative (Negative); Urine Clarity Sl. Cloudy (Clear); Urine Urobilinogen 1 mg/dl (Normal)
[2021-07-22 18:50] LABS: Ketone-Dipstick 150 mg/dl (Negative)
[2021-07-22 18:52] LABS: Red Blood Cells-Urine > 100 SEEN /hpf (0-5); White Blood Cells 0-5 SEEN /hpf (0-5)
[2021-07-22] MEDS: Magnesium Citrate 300 ML PO (20:27)
[2021-07-22 20:29] VITALS: BP 140/68; PULSE 111; RESP 18; O2SAT 97
== END 2021-07-22 20:29 | disposition home or self-care (01) ==
PROVIDERS: Emergency Provider Student in an Organized Health Care Education/Training Program
DX: R10.9 Unspecified abdominal pain (principal); R11.2 Nausea with vomiting, unspecified; K59.00 Constipation, unspecified; W19.XXXA Unspecified fall, initial encounter; Y92.9 Unspecified place or not applicable; Y93.9 Activity, unspecified; Z93.6 Other artificial openings of urinary tract status; I10 Essential (primary) hypertension; F32.A Depression, unspecified; Z85.42 Personal history of malignant neoplasm of other parts of uterus; Z79.899 Other long term (current) drug therapy
CPT/HCPCS: 74177; 80053; 81001; 83690; 87086; 96361; 96374; 96375; 96376; 99285; J7030; Q9967; A4216

== ENCOUNTER 2021-08-24 02:57 | Emergency (ER) | payer MEDICAID, SELFPAY ==
[2021-08-24 02:58] VITALS: BP 166/126; PULSE 115; RESP 20; TEMP 35.7; O2SAT 100; BMI 25.5
--- NOTE | 2021-08-24 03:11 | CT_ITS ---
STUDY: CT ABDOMEN AND PELVIS WITHOUT CONTRAST REASON FOR EXAM: Female, 21 years old. Pain RADIATION DOSAGE (If Supplied By Facility): CTDIvol = ( 8.05 ) mGy, DLP = ( 438.30 ) mGycm TECHNIQUE: Transaxial images were obtained from the dome of the diaphragm to the symphysis pubis without oral contrast, and without intravenous contrast. Sagittal and coronal images were reconstructed. Individualized dose optimization techniques were used for this CT. COMPARISON: July 22, 2021 CT scan abdomen and pelvis FINDINGS: The visualized lung bases are unremarkable. The visualized portions of the heart are within normal limits. Normal liver. Normal gallbladder and extrahepatic biliary system. Normal spleen. Normal pancreas. Normal bilateral adrenal glands. Normal right kidney. There is a left-sided double-J stent. There is no visualized hydronephrosis. Compared to prior study there is been removal of the left sided nephrostomy tube. Normal visualized stomach. Normal small intestine. There is moderate stool in the colon. The appendix is visualized and appears normal. Normal abdominal aorta. Normal inferior vena cava. There are multiple small retroperitoneal lymph nodes. Patient the level of the left ureter that measures up to 1.44 cm. There is a left-sided double-J stent. There is a small amount of gas in the bladder likely from recent Alarcon placement or procedure. There is absence of the uterus consistent with a prior hysterectomy. There remaining symmetric ovaries of normal size. There is a small umbilical hernia containing fat. Normal osseous structures. CT/Abdomen/Pelvis without Cont IMPRESSION: Interval removal of the left-sided nephrostomy tube. No hydronephrosis. Left-sided double-J stent. Constipation. No appendicitis. Status post hysterectomy. Electronically Signed: Danni Beckham MD at 4:41 EST Tel , Service support ,
--- NOTE | 2021-08-24 03:12 | EDS_ITS ---
HPI History of Present Illness Chief Complaint: Flank Pain Informant: patient and family Onset/Context/Timing Onset: Days (2) Context: Sudden Onset Timing: Continuous Quality: Sharp Location: Left flank Worsened by: Nothing Relieved by: Nothing Narrative Narrative: Patient presents with nausea and vomiting that began 2 days ago. Patient states it has been constant for the past 2 days. Patient states she is unable to keep any food or liquids down. Patient admits to some sharp pain over her left flank. Patient admits to some dysuria and cloudy urine. Patient has a history of kidney infections. Patient states she called her urologist and was told to come to the nearest emergency department. Patient states her temperature at home was up to 102. PFSH [facility] Medical History Alcohol abuse Cancer Depression Endometrial cancer Hydronephrosis Hypertension Menorrhagia Non-smoker Retained ureteral stent Ureter injury Ureteral stricture, left Home Medications acetaminophen [Tylenol] 650 mg PO Q4H PRN PRN #0 tab 07/12/21 [Rx Last Taken Unknown] famotidine 20 mg PO BID 30 Days #60 tab 07/12/21 [Rx Last Taken Unknown] lisinopril 10 mg PO DAILY 30 Days #30 tab 07/12/21 [Rx Last Taken Unknown] ondansetron 4 mg PO Q6H PRN #10 tab 07/18/21 [Rx Last Taken Unknown] mirtazapine 15 mg PO QHS 07/19/21 [History Last Taken Unknown] naproxen 500 mg PO BID 07/19/21 [History Last Taken Unknown] haloperidol 1 mg PO TID #20 tab 07/21/21 [Rx Last Taken Unknown] oxycodone 10 mg PO Q6H PRN 3 Days #12 tab 07/21/21 [Rx Last Taken Unknown] polyethylene glycol 3350 [Miralax] 17 g PO BID #238 g 07/21/21 [Rx Last Taken Unknown] sennosides-docusate sodium [Senna-S] 1 tab-cap PO QHS #30 tab 07/21/21 [Rx Last Taken Unknown] levofloxacin 750 mg PO DAILY #7 tab 08/24/21 [Rx Last Taken Unknown] ondansetron 4 mg PO Q8H PRN PRN #10 tab 08/24/21 [Rx Last Taken Unknown] Allergy/AdvReac Type Severity Reaction Status Date / Time ceftriaxone [From Rocephin] Allergy Hives Verified 08/24/21 03:02 promethazine [From Phenergan] Allergy Vomiting Verified 08/24/21 03:02 Ringer's solution,lactated Allergy Hives Verified 08/24/21 03:02 Family History Father No problems noted. Mother No problems noted. Surgical History History of hysterectomy for cancer History of renal stent Social History household members: family Smoking Status: Never smoker alcohol intake: former substance use type: does not use ROS ROS ED Constitutional Constitutional ED: Reports fever(s); Denies chills Eyes Eyes: Denies blurry vision or change in vision ENT ENT ED: Denies rhinorrhea or sore throat Cardiovascular Cardiovascular: Denies chest pain or palpitations Respiratory/Chest Respiratory/Chest: Reports dyspnea; Denies cough Gastrointestinal Gastrointestinal: Reports abdominal pain, nausea and vomiting Genitourinary Genitourinary ED: Denies dysuria or hematuria Musculoskeletal Musculoskeletal: Reports back pain and neck pain Integumentary Reports rash; Denies abscess Neurologic Neurologic: Reports headache(s); Denies weakness Allergic/Immunologic Allergic/Immunologic ED: Denies mouth swelling or urticaria EXAM Physical Exam Const Vital Signs: 08/24/21 02:58 08/24/21 04:08 08/24/21 06:18 Temperature 96.3 F L 99.8 F H Temperature Source Temporal Temporal Pulse Rate 115 H 120 H 91 Respiratory Rate 20 H 16 16 Blood Pressure 166/126 H 143/103 H 141/86 H Blood Pressure Mean 139 116 104 Pulse Ox 100 100 100 Oxygen Delivery Method Room Air Room Air Positive well nourished, well developed and unkempt General Appearance ED: unkempt and well developed HEENT Reports moist mucous membranes Neck supple and no JVD Resp normal respiratory effort and clear to auscultation bilaterally Cardio regular rate, regular rhythm and no murmurs GI normal to inspection, nondistended, normoactive bowel sounds Palpation: soft and tender LLQ and LUQ; Negative for guarding or rebound tenderness present Back/Spine General Back: CVA tenderness left Extremity normal to inspection General Extremety ED: Negative for edema or tenderness General Extremity: Negative for edema Neuro oriented x3, CN's II-XII intact bilaterally and no sensory deficits noted Sensorium / Orientation: alert Motor Exam: strength 5/5 throughout Psych mental status grossly normal Appearance: unkempt Skin no rashes or lesions noted MDM MDM MDM Narrative Medical decision making narrative: Patient was given IV fluids here. Patient was given a dose of morphine and Zofran initially. CBC shows a mild anemia with a hemoglobin of 11.2 and hematocrit 35.7. Comprehensive metabolic profile was essentially within normal limits. Urinalysis shows leukocyte esterase of 500 with 50-100 white blood cells and positive nitrites. Ketones were 150. CT scan of the abdomen pelvis was obtained. There is a left ureteral stent noted. There is no hydronephrosis noted. There is no perinephric stranding. There is no evidence of appendicitis. This was interpreted by the radiologist and reviewed by myself. Patient was given a dose of IV Levaquin here. Patient was given a dose of oral [place]. Patient wants to go home. Patient was given prescriptions for Levaquin and Zofran. Patient was instructed to follow-up with her primary care physician in 5 to 7 days. Patient understood and was agreeable with the plan. All questions were answered. Lab Data Labs: Laboratory Results - last 24 hr 08/24/21 08/24/21 08/24/21 03:48 03:48 06:16 WBC 8.6 RBC 4.52 Hgb 11.2 L Hct 35.7 L MCV 79.0 L MCH 24.8 L MCHC 31.4 L RDW Std Deviation 46.2 H RDW Coeff of Roz 16.1 H Plt Count 297 MPV 9.2 Immature Gran % (Auto) 0.400 Neut % (Auto) 86.0 H Lymph % (Auto) 6.7 L [place] % (Auto) 6.3 Eos % (Auto) 0.4 Baso % (Auto) 0.2 Absolute Neuts (auto) 7.4 Absolute Lymphs (auto) 0.57 L Nucleated RBC % 0 Differential Comment SCANNED Sodium 136 Potassium 3.4 L Chloride 103 Carbon Dioxide 18.0 L Anion Gap 15 BUN 10 Creatinine 0.65 Estim Creat Clear Calc 143.08 Est GFR (MDRD) Af Amer 146 Est GFR (MDRD) Non-Af 121 BUN/Creatinine Ratio 15.3 Glucose 112 H Calcium 9.6 Total Bilirubin 0.50 AST 9 L ALT 23 Alkaline Phosphatase 72 Total Protein 8.9 H Albumin 3.7 Globulin 5.2 H Albumin/Globulin Ratio 0.7 L Lipase 54 L Urine Color Yellow Urine Clarity Sl. Cloudy Urine pH 5.0 Ur Specific [place] 1.025 Urine Protein 100 H Urine Glucose (UA) Normal Urine Ketones 150 A* Urine Occult Blood 50 H Urine Nitrite Positive H Urine Bilirubin Negative Urine Urobilinogen Normal Ur Leukocyte Esterase 500 H Urine RBC 0-5 SEEN Urine WBC 50-100 SEEN Ur Squamous Epith Cells 0 SEEN Urine Bacteria 2+ Urine Mucus RARE Radiography Diagnostic Testing: Clinical Impression(s) from Imaging Studies Abdomen/Pelvis CT 08/24/21 03:11 IMPRESSION: Interval removal of the left-sided nephrostomy tube. No hydronephrosis. Left-sided double-J stent. Constipation. No appendicitis. Status post hysterectomy. Electronically Signed: Danni Beckham MD at 4:41 EST Tel , Service support , Discharge Plan Triage Chief Complaint: Flank Pain ED Provider: Josué Reinoso Dx/Rx/DC Orders Clinical Impression: Pyelonephritis Instructions: ED Pyelonephritis, Female (Adult) Prescriptions: New ondansetron [ondansetron] 4 MG tablet 4 mg PO Q8H PRN PRN (Reason: Nausea) Qty: 10 RF: 0 levofloxacin 750 mg tablet 750 mg PO DAILY Qty: 7 RF: 0 No Action acetaminophen [Tylenol] 325 mg Tablet 650 mg PO Q4H PRN PRN (Reason: Fever, pain 1-06/16) Qty: 0 RF: 0 famotidine 20 mg Tablet 20 mg PO BID 30 Days Qty: 60 RF: 0 lisinopril 10 mg Tablet 10 mg PO DAILY 30 Days Qty: 30 RF: 0 ondansetron 4 mg tablet,disintegrating 4 mg PO Q6H PRN (Reason: nausea and vomiting) Qty: 10 RF: 0 naproxen 500 mg tablet 500 mg PO BID RF: 0 mirtazapine 15 mg tablet,disintegrating 15 mg PO QHS RF: 0 oxycodone 5 mg Tablet 10 mg PO Q6H PRN (Reason: pain (scale score 7-10)) 3 Days Qty: 12 RF: 0 haloperidol 1 mg tablet 1 mg PO TID Qty: 20 RF: 0 sennosides-docusate sodium [Senna-S] 8.6-50 mg tablet 1 tab-cap PO QHS Qty: 30 RF: 0 polyethylene glycol 3350 [Miralax] 17 gram/dose powder 17 g PO BID Qty: 238 RF: 0 Referrals: EDWIGE Henry [Other] - 3-5 Days Disposition Disposition: Home, Self Care
[2021-08-24 03:54] LABS: Absolute Lymphocyte Count 0.57 X10^3/uL (0.83-4.51); Absolute Neutrophil Count 7.4 X10^3/uL (2.0-7.7); Basophil# 0.02 X10^3/uL; Basophil% 0.2 % (0-1); Eosinophil# 0.03 X10^3/uL; Eosinophils% 0.4 % (0-5); Hematocrit 35.7 % (37-47); Hemoglobin 11.2 g/dL (12.0-15.0); Lymphocyte # 0.57 X10^3/ul (0.83-4.51); Lymphocyte % 6.7 % (19-41); Mean Corp Hgb Conc 31.4 g/dL (32-36); Mean Corpuscular Hgb 24.8 pg (27.0-32.0); Mean Platelet Vol. 9.2 fl (6.2-12.0); Monocyte# 0.54 X10^3/uL; Monocyte% 6.3 % (0-10); NRBC Flagged by Analyzer 0 % (0-5); Neutrophil # 7.36 X10^3/uL (2.7-7.7); POSITIVE DIFFERENTIAL YES; Platelet Count 297 K/mm3 (150-450); RBC Distribution Width CV 16.1 % (11.6-14.6); RBC Distribution Width SD 46.2 fl (35.1-43.9); Red Blood Count 4.52 M/mm3 (4.2-5.4); White Blood Count 8.6 K/mm3 (4.4-11.0)
[2021-08-24 03:56] LABS: Differential Indicated SCAN CRITERIA MET
[2021-08-24] MEDS: 0.9% Normal Saline 1,000 ML 1000 ML IV ×2 (04:04→06:19)
[2021-08-24] MEDS: Ondansetron 4 MG/2 ML Vial IV ×2 (04:05→06:57)
[2021-08-24] MEDS: Morphine 4 MG/ML Syringe IV (04:06)
[2021-08-24 04:08] VITALS: BP 143/103; PULSE 120; RESP 16; TEMP 37.7; O2SAT 100
[2021-08-24 04:19] LABS: ALB/GLOB Ratio 0.7 RATIO (0.9-2.4); AST(SGOT) 9 U/L (15-37); Alanine Aminotransfer ALT/SGPT 23 U/L (13-56); Albumin, Serum 3.7 g/dL (3.2-5.0); Alkaline Phosphatase 72 U/L (45-117); Anion Gap 15 (5-15); BUN 10 mg/dL (7-18); BUN/Creat Ratio 15.3 RATIO (10-20); Calcium,Total 9.6 mg/dL (8.5-10.1); Chloride 103 mmol/L (98-107); Creatinine, Serum 0.65 mg/dL (0.55-1.02); EST Glomerular Filtration Rate 121 mL/min (>60); Est Glom Filt Rate - Afr Amer 146 mL/min (>60); Estimated Creatinine Clearance 143.08 ml/min; Globulin 5.2 g/dL (2.2-4.2); Glucose 112 mg/dL (74-106); Lipase 54 U/L (73-393); Potassium 3.4 mmol/L (3.5-5.1); Protein, Total 8.9 g/dL (6.4-8.2); Sodium Level 136 mmol/L (136-145)
[2021-08-24 04:32] LABS: Differential Comment SCANNED
[2021-08-24 06:18] VITALS: BP 141/86; PULSE 91; RESP 16; O2SAT 100
[2021-08-24 06:22] LABS: Squamous Epithelial Cells - UA 0 SEEN /hpf (5-10)
[2021-08-24 06:33] LABS: Color, Urine Yellow (Yellow); Glucose, Dipstick Normal (Normal); Leukocyte Esterase-Dipstick 500 /ul (Negative); Nitrite-Dipstick Positive (Negative); Occult Blood-Urine 50 /ul (Negative); Protein-Dipstick 100 mg/dl (Negative); Specific Gravity, Urine 1.025 (1.002-1.030); Urine Bilirubin Dipstick Negative (Negative); Urine Clarity Sl. Cloudy (Clear); Urine Urobilinogen Normal (Normal)
[2021-08-24 06:34] LABS: Ketone-Dipstick 150 mg/dl (Negative)
[2021-08-24 06:39] LABS: White Blood Cells 50-100 SEEN /hpf (0-5)
[2021-08-24 06:40] LABS: Bacteria 2+ /hpf (None Seen); Mucous, Urine RARE /hpf (<or=2+); Red Blood Cells-Urine 0-5 SEEN /hpf (0-5)
[2021-08-24] MEDS: levoFLOXacin IV 750 MG/150 ML BAG 100 MG IV (07:00)
[2021-08-24 08:04] VITALS: O2SAT 99
== END 2021-08-24 08:24 | disposition home or self-care (01) ==
PROVIDERS: Emergency Provider Emergency Medicine
DX: N12 Tubulo-interstitial nephritis, not specified as acute or chronic (principal); I10 Essential (primary) hypertension; F32.A Depression, unspecified; Z85.42 Personal history of malignant neoplasm of other parts of uterus; Z79.899 Other long term (current) drug therapy
CPT/HCPCS: 74176; 80053; 81001; 83690; 85025; 96361; 96365; 96366; 96374; 96375; 96376; 99285; J7030; A4216; J2405

== ENCOUNTER 2021-09-08 05:45 | Emergency (ER) | payer MEDICAID, SELFPAY ==
[2021-09-08 05:46] VITALS: BP 147/102; PULSE 111; RESP 18; TEMP 36.9; O2SAT 99; BMI 24.5
[2021-09-08 06:18] LABS: Absolute Lymphocyte Count 0.51 X10^3/uL (0.83-4.51); Absolute Neutrophil Count 6.6 X10^3/uL (2.0-7.7); Basophil# 0.05 X10^3/uL; Basophil% 0.7 % (0-1); Eosinophil# 0.01 X10^3/uL; Eosinophils% 0.1 % (0-5); Hematocrit 42.3 % (37-47); Hemoglobin 12.9 g/dL (12.0-15.0); Lymphocyte # 0.51 X10^3/ul (0.83-4.51); Lymphocyte % 6.9 % (19-41); Mean Corp Hgb Conc 30.5 g/dL (32-36); Mean Corpuscular Hgb 24.3 pg (27.0-32.0); Mean Corpuscular Volume 79.7 fL (81-99); Mean Platelet Vol. 9.5 fl (6.2-12.0); Monocyte% 2.7 % (0-10); NRBC Flagged by Analyzer 0 % (0-5); Neutrophil # 6.62 X10^3/uL (2.7-7.7); Neutrophil % 89.3 % (47-70); POSITIVE DIFFERENTIAL YES; Platelet Count 350 K/mm3 (150-450); RBC Distribution Width CV 14.7 % (11.6-14.6); RBC Distribution Width SD 42.2 fl (35.1-43.9); Red Blood Count 5.31 M/mm3 (4.2-5.4); White Blood Count 7.4 K/mm3 (4.4-11.0)
[2021-09-08 06:21] LABS: Differential Indicated SCAN CRITERIA MET
[2021-09-08] MEDS: DiphenhydrAMINE 50 MG/ML Syringe 25 MG IV (06:47)
[2021-09-08 06:48] LABS: AST(SGOT) 14 U/L (15-37); Alanine Aminotransfer ALT/SGPT 21 U/L (13-56); Albumin, Serum 4.6 g/dL (3.2-5.0); Alkaline Phosphatase 62 U/L (45-117); Anion Gap 14 (5-15); BUN 3 mg/dL (7-18); BUN/Creat Ratio 3.6 RATIO (10-20); Bilirubin, Direct 0.08 mg/dL (0.00-0.30); Calcium,Total 9.4 mg/dL (8.5-10.1); Chloride 104 mmol/L (98-107); Creatinine, Serum 0.84 mg/dL (0.55-1.02); EST Glomerular Filtration Rate 90 mL/min (>60); Est Glom Filt Rate - Afr Amer 109 mL/min (>60); Estimated Creatinine Clearance 110.72 ml/min; Globulin 4.4 g/dL (2.2-4.2); Glucose 109 mg/dL (74-106); Potassium 3.5 mmol/L (3.5-5.1); Sodium Level 137 mmol/L (136-145)
[2021-09-08] MEDS: 0.9% Normal Saline 1,000 ML 1000 ML IV (06:48)
[2021-09-08] MEDS: Morphine 4 MG/ML Syringe IV ×2 (06:50→08:29)
[2021-09-08] MEDS: Metoclopramide 10 MG/2 ML Vial IV (06:50)
[2021-09-08 07:06] LABS: Mucous, Urine 0 SEEN /hpf (<or=2+)
[2021-09-08 07:10] LABS: Color, Urine Yellow (Yellow); Glucose, Dipstick Normal (Normal); Leukocyte Esterase-Dipstick 500 /ul (Negative); Nitrite-Dipstick Negative (Negative); Occult Blood-Urine 250 /ul (Negative); Protein-Dipstick 100 mg/dl (Negative); Specific Gravity, Urine 1.025 (1.002-1.030); Urine Bilirubin Dipstick Negative (Negative); Urine Clarity Clear (Clear); Urine Urobilinogen Normal (Normal)
[2021-09-08 07:13] LABS: Ketone-Dipstick 150 mg/dl (Negative)
[2021-09-08 07:21] LABS: Bacteria 1+ /hpf (None Seen); Hyaline Cast 5-10 SEEN /lpf (0-5); Red Blood Cells-Urine 50-100 SEEN /hpf (0-5); Squamous Epithelial Cells - UA 0-5 SEEN /hpf (5-10); White Blood Cells 5-10 SEEN /hpf (0-5)
--- NOTE | 2021-09-08 07:41 | ED.RN ---
Unable to draw off IV for lactic.
[2021-09-08] MEDS: Ondansetron 4 MG/2 ML Vial IV (08:29)
[2021-09-08] MEDS: 0.9% Normal Saline 1,000 ML 150 ML IV (08:29)
--- NOTE | 2021-09-08 09:20 | EX.ED.DYSGE1 ---
HPI History of Present Illness Chief Complaint: Nausea/Vomiting Informant: patient and family Onset/Context/Timing Onset: Yesterday Current Severity: Moderate Maximum Severity: Moderate Narrative Narrative: Patient presents secondary to nausea and vomiting. Patient has a history of pyelonephritis and was recently hospitalized at [facility] for pyelonephritis and intractable vomiting. She was discharged yesterday. Patient states that she felt okay when she left the hospital but after arriving home has had vomiting and unable to keep anything down. She was sent home with Zofran and it is not helping. She was also only given naproxen for pain and is having increased abdominal pain. She denies fever or chills. [facility] Medical History Alcohol abuse Cancer Depression Endometrial cancer Hydronephrosis Hypertension Menorrhagia Non-smoker Retained ureteral stent Ureter injury Ureteral stricture, left Home Medications acetaminophen [Tylenol] 650 mg PO Q4H PRN PRN #0 tab 07/12/21 [Rx Last Taken Unknown] famotidine 20 mg PO BID 30 Days #60 tab 07/12/21 [Rx Last Taken Unknown] lisinopril 10 mg PO DAILY 30 Days #30 tab 07/12/21 [Rx Last Taken Unknown] ondansetron 4 mg PO Q6H PRN #10 tab 07/18/21 [Rx Last Taken Unknown] mirtazapine 15 mg PO QHS 07/19/21 [History Last Taken Unknown] naproxen 500 mg PO BID 07/19/21 [History Last Taken Unknown] haloperidol 1 mg PO TID #20 tab 07/21/21 [Rx Last Taken Unknown] oxycodone 10 mg PO Q6H PRN 3 Days #12 tab 07/21/21 [Rx Last Taken Unknown] polyethylene glycol 3350 [Miralax] 17 g PO BID #238 g 07/21/21 [Rx Last Taken Unknown] sennosides-docusate sodium [Senna-S] 1 tab-cap PO QHS #30 tab 07/21/21 [Rx Last Taken Unknown] levofloxacin 750 mg PO DAILY #7 tab 08/24/21 [Rx Last Taken Unknown] ondansetron 4 mg PO Q8H PRN PRN #10 tab 08/24/21 [Rx Last Taken Unknown] haloperidol 1 mg PO TID #10 tab 09/08/21 [Rx Last Taken Unknown] hydrocodone-acetaminophen 1 tab PO Q6H PRN 3 Days #10 tab 09/08/21 [Rx Last Taken Unknown] Allergy/AdvReac Type Severity Reaction Status Date / Time ceftriaxone [From Rocephin] Allergy Hives Verified 09/08/21 05:49 promethazine [From Phenergan] Allergy Vomiting Verified 09/08/21 05:49 Ringer's solution,lactated Allergy Hives Verified 09/08/21 05:49 Family History Father No problems noted. Mother No problems noted. Surgical History History of hysterectomy for cancer History of renal stent Social History household members: family Smoking Status: Never smoker alcohol intake: former substance use type: does not use ROS ROS ED Constitutional Constitutional ED: Denies chills or fever(s) Eyes Eyes: Denies change in vision ENT ENT ED: Denies sore throat Cardiovascular Cardiovascular: Denies chest pain Respiratory/Chest Respiratory/Chest: Denies cough or dyspnea Gastrointestinal Gastrointestinal: Reports abdominal pain, nausea and vomiting; Denies diarrhea Genitourinary Genitourinary ED: Denies dysuria Musculoskeletal Musculoskeletal: Denies back pain Neurologic Neurologic: Reports weakness Allergic/Immunologic Allergic/Immunologic ED: Denies urticaria EXAM Physical Exam Const Vital Signs: 09/08/21 05:46 Temperature 98.5 F Temperature Source Oral Pulse Rate 111 H Respiratory Rate 18 Blood Pressure 147/102 H Blood Pressure Mean 117 Pulse Ox 99 Oxygen Delivery Method Room Air Positive well developed and unkempt General Appearance ED: unkempt and well developed HEENT Reports moist mucous membranes Eyes PERRL and EOMs intact bilaterally Neck supple Chest Wall inspection of chest normal and palpation of chest normal Resp normal respiratory effort and clear to auscultation bilaterally Cardio regular rhythm Rate: tachycardic GI non-tender GI Narrative: No focal tenderness on exam. Palpation: soft Neuro oriented x3 Sensorium / Orientation: alert Psych mental status grossly normal Appearance: unkempt Skin no rashes or lesions noted MDM MDM MDM Narrative Medical decision making narrative: Patient was given IV fluids, morphine, Reglan, Benadryl. Lab work and urinalysis obtained. Lab Data Attestation: I reviewed the patient's lab results. Labs: Laboratory Results - last 24 hr 09/08/21 09/08/21 09/08/21 06:00 06:00 06:50 WBC 7.4 RBC 5.31 Hgb 12.9 Hct 42.3 MCV 79.7 L MCH 24.3 L MCHC 30.5 L RDW Std Deviation 42.2 RDW Coeff of Roz 14.7 H Plt Count 350 MPV 9.5 Immature Gran % (Auto) 0.300 Neut % (Auto) 89.3 H Lymph % (Auto) 6.9 L [place] % (Auto) 2.7 Eos % (Auto) 0.1 Baso % (Auto) 0.7 Absolute Neuts (auto) 6.6 Absolute Lymphs (auto) 0.51 L Nucleated RBC % 0 Sodium 137 Potassium 3.5 Chloride 104 Carbon Dioxide 19.0 L Anion Gap 14 BUN 3 L Creatinine 0.84 Estim Creat Clear Calc 110.72 Est GFR (MDRD) Af Amer 109 Est GFR (MDRD) Non-Af 90 BUN/Creatinine Ratio 3.6 L Glucose 109 H Calcium 9.4 Total Bilirubin 0.60 Direct Bilirubin 0.08 AST 14 L ALT 21 Alkaline Phosphatase 62 Total Protein 9.0 H Albumin 4.6 Globulin 4.4 H Urine Color Yellow Urine Clarity Clear Urine pH 6.0 Ur Specific [place] 1.025 Urine Protein 100 H Urine Glucose (UA) Normal Urine Ketones 150 A* Urine Occult Blood 250 H Urine Nitrite Negative Urine Bilirubin Negative Urine Urobilinogen Normal Ur Leukocyte Esterase 500 H Urine RBC 50-100 SEEN Urine WBC 5-10 SEEN Ur Squamous Epith Cells 0-5 SEEN Urine Bacteria 1+ Hyaline Casts 5-10 SEEN Urine Mucus 0 SEEN Treatment and Re-Evaluation Comments:: Lab work unremarkable with normal white count. BUN and creatinine are normal. Urinalysis shows leukocyte esterase secondary to her stent, but no sign of acute infection. Family had stated that we were to call [facility] when she arrived here and they were expecting her as a transfer. We spoke with the transfer center. The urologist had not called them and they did not have any members with this patient's name as a pending transfer. I spoke with Marlon, on-call for acute neurology. She was able to review the patient's chart. We reviewed her 2 most recent 2 urine cultures which revealed no growth. We reviewed her labs today in comparison to her discharge labs. She does not feel that the patient needs to be transferred. She notes that the patient is scheduled for surgery at 1230 tomorrow which should arrive at the hospital by 1030. This was relayed to the patient and family as they were told to arrive at 5:30 AM. Patient will be discharged with a prescription for Haldol which she states has helped her nausea better in the past. I will also write her a short course of [place]. She is to follow-up at [facility] tomorrow for her surgery. Discharge Plan Triage Chief Complaint: Nausea/Vomiting ED Provider: Patience Steiner Dx/Rx/DC Orders Clinical Impression: Vomiting Instructions: ED Vomiting (Adult) Prescriptions: New haloperidol 1 mg tablet 1 mg PO TID Qty: 10 RF: 0 hydrocodone-acetaminophen 5-325 mg tablet 1 tab PO Q6H PRN (Reason: pain) 3 Days Qty: 10 RF: 0 No Action acetaminophen [Tylenol] 325 mg Tablet 650 mg PO Q4H PRN PRN (Reason: Fever, pain 1-06/16) Qty: 0 RF: 0 famotidine 20 mg Tablet 20 mg PO BID 30 Days Qty: 60 RF: 0 lisinopril 10 mg Tablet 10 mg PO DAILY 30 Days Qty: 30 RF: 0 ondansetron 4 mg tablet,disintegrating 4 mg PO Q6H PRN (Reason: nausea and vomiting) Qty: 10 RF: 0 naproxen 500 mg tablet 500 mg PO BID RF: 0 mirtazapine 15 mg tablet,disintegrating 15 mg PO QHS RF: 0 oxycodone 5 mg Tablet 10 mg PO Q6H PRN (Reason: pain (scale score 7-10)) 3 Days Qty: 12 RF: 0 haloperidol 1 mg tablet 1 mg PO TID Qty: 20 RF: 0 sennosides-docusate sodium [Senna-S] 8.6-50 mg tablet 1 tab-cap PO QHS Qty: 30 RF: 0 polyethylene glycol 3350 [Miralax] 17 gram/dose powder 17 g PO BID Qty: 238 RF: 0 ondansetron [ondansetron] 4 MG tablet 4 mg PO Q8H PRN PRN (Reason: Nausea) Qty: 10 RF: 0 levofloxacin 750 mg tablet 750 mg PO DAILY Qty: 7 RF: 0 Primary Care Provider: Devonte Henry Referrals: Devonte Henry MD [Primary Care Provider] - Activity Restrictions/Additional Instructions: Follow-up at [facility] tomorrow for your surgery as scheduled. Disposition Disposition: Home, Self Care
[2021-09-08 10:01] VITALS: BP 160/116; PULSE 120; RESP 17; O2SAT 100
== END 2021-09-08 10:05 | disposition home or self-care (01) ==
PROVIDERS: Emergency Provider Emergency Medicine; Visit Provider Emergency Medicine
DX: R11.2 Nausea with vomiting, unspecified (principal); R10.9 Unspecified abdominal pain; I10 Essential (primary) hypertension; Z87.448 Personal history of other diseases of urinary system; F32.A Depression, unspecified; Z85.42 Personal history of malignant neoplasm of other parts of uterus; Z79.899 Other long term (current) drug therapy; Z96.0 Presence of urogenital implants
CPT/HCPCS: 80048; 80076; 81001; 85025; 96361; 96374; 96375; 96376; 99285; J7030; A4216; J2405

== ENCOUNTER 2021-09-08 19:32 | Emergency (ER) | payer MEDICAID, SELFPAY ==
[2021-09-08 19:33] VITALS: BP 149/104; PULSE 122; RESP 18; TEMP 36.1; O2SAT 100; BMI 24.9
--- NOTE | 2021-09-08 20:39 | ED.RN ---
patient called to the desk in triage for an IV and bloodwork, patients states we are just going to leave, i cant wait all night. I have an appointment in the morning
== END 2021-09-08 20:39 | disposition left against medical advice (07) ==
LOC: ED 20:39
DX: Z53.21 Procedure and treatment not carried out due to patient leaving prior to being seen by health care provider (principal)

== ENCOUNTER 2021-09-12 01:00 | Emergency (ER) | payer MEDICAID, SELFPAY ==
[2021-09-12 01:02] VITALS: BP 175/90; PULSE 93; RESP 16; TEMP 36.9; O2SAT 98; BMI 25.4
--- NOTE | 2021-09-12 01:27 | EDS_ITS ---
HPI History of Present Illness Chief Complaint: Nausea/Vomiting Informant: patient and parent Narrative Narrative: Presents recurrent persistent vomiting after being discharged from [facility] 3 PM yesterday, 10 hours ago. Has been seen multiple times here for vomiting. She been treated for pyelonephritis in the past. She was last seen in the ED 4 days ago. Review of records symptoms improved with Haldol. Apparently had surgery 3 days ago as an outpatient reporting by mother lysis of adhesions along with ureteral repair secondary to injury from her hysterectomy in the past. Surgery performed by Dr. Barahona. States had a laparoscopic surgery she came out with a drain tube. Reported removed earlier in the day. She states she was not vomiting for couple hours and was discharged. Discharge prescription for oxycodone. She has Haldol at home written 4 days ago. She states she has not had a bowel movement and did not have one during hospitalization however she has been passing gas. Denies any urinary symptoms. From review of records with her possible pyelonephritis there has been negative urine culture at outside facility along with negative urine cultures at this facility. Mother states they did contact the nursing on the way here and was called back stating a message will be relayed to the urologist. Evaluation medical records through [facility], patient with a robotic laparoscopic uterotomy with antegrade stent placed on September 09. Discharge prescription oxycodone along with Colace yesterday. Prior similar symptoms: Yes PFSH PFSH Medical History Alcohol abuse Cancer Depression Endometrial cancer Hydronephrosis Hypertension Menorrhagia Non-smoker Retained ureteral stent Ureter injury Ureteral stricture, left Home Medications acetaminophen [Tylenol] 650 mg PO Q4H PRN PRN #0 tab 07/12/21 [Rx Last Taken Unknown] famotidine 20 mg PO BID 30 Days #60 tab 07/12/21 [Rx Last Taken Unknown] lisinopril 10 mg PO DAILY 30 Days #30 tab 07/12/21 [Rx Last Taken Unknown] ondansetron 4 mg PO Q6H PRN #10 tab 07/18/21 [Rx Last Taken Unknown] mirtazapine 15 mg PO QHS 07/19/21 [History Last Taken Unknown] naproxen 500 mg PO BID 07/19/21 [History Last Taken Unknown] haloperidol 1 mg PO TID #20 tab 07/21/21 [Rx Last Taken Unknown] oxycodone 10 mg PO Q6H PRN 3 Days #12 tab 07/21/21 [Rx Last Taken Unknown] polyethylene glycol 3350 [Miralax] 17 g PO BID #238 g 07/21/21 [Rx Last Taken Unknown] sennosides-docusate sodium [Senna-S] 1 tab-cap PO QHS #30 tab 07/21/21 [Rx Last Taken Unknown] levofloxacin 750 mg PO DAILY #7 tab 08/24/21 [Rx Last Taken Unknown] ondansetron 4 mg PO Q8H PRN PRN #10 tab 08/24/21 [Rx Last Taken Unknown] haloperidol 1 mg PO TID #10 tab 09/08/21 [Rx Last Taken Unknown] hydrocodone-acetaminophen 1 tab PO Q6H PRN 3 Days #10 tab 09/08/21 [Rx Last Taken Unknown] Allergy/AdvReac Type Severity Reaction Status Date / Time ceftriaxone [From Rocephin] Allergy Hives Verified 09/12/21 01:04 promethazine [From Phenergan] Allergy Vomiting Verified 09/12/21 01:04 Ringer's solution,lactated Allergy Hives Verified 09/12/21 01:04 Family History Father No problems noted. Mother No problems noted. Surgical History History of hysterectomy for cancer History of renal stent Social History household members: family Smoking Status: Never smoker alcohol intake: former substance use type: does not use ROS ROS ED Constitutional Constitutional ED: Denies chills, fever(s) or sweats Eyes Eyes: Denies change in vision ENT ENT ED: Denies dysphagia or sore throat Cardiovascular Cardiovascular: Denies chest pain, leg edema, palpitations or racing heartbeat Respiratory/Chest Respiratory/Chest: Denies cough, dyspnea or dyspnea on exertion Gastrointestinal Gastrointestinal: Reports nausea and vomiting; Denies abdominal pain or diarrhea Genitourinary Genitourinary ED: Denies dysuria, hematuria or urinary frequency Musculoskeletal Musculoskeletal: Denies back pain, extremity pain or neck pain Integumentary Denies rash or wounds Neurologic Neurologic: Denies headache(s), paresthesias or weakness EXAM Physical Exam Const Vital Signs: 09/12/21 01:02 09/12/21 03:35 Temperature 98.5 F Temperature Source Temporal Pulse Rate 93 Respiratory Rate 16 16 Blood Pressure 175/90 H Blood Pressure Mean 118 Pulse Ox 98 Oxygen Delivery Method Room Air Positive well nourished and well developed Constitutional Narrative: Dry heaving on evaluation. General Appearance ED: well developed HEENT Reports moist mucous membranes normocephalic and atraumatic Eyes PERRL, EOMs intact bilaterally and conjunctivae normal General Eye ED: Yes normal appearance of both eyes Neck no lymphadenopathy and supple General: Negative for tenderness Chest Wall Chest: Negative for tenderness Resp normal respiratory effort and normal air movement Effort and Inspection: symmetric chest movement; Negative for respiratory distress Cardio regular rate, regular rhythm and no murmurs Peripheral Pulses: pulses 2+ throughout GI normal to inspection, nondistended, normoactive bowel sounds GI Narrative: Mild generalized tenderness. Laparoscopic incisions with Dermabond clean, dry, intact. Positive bowel sounds. Palpation: Negative for guarding or rebound tenderness present Back/Spine no CVA tenderness and no thoracic nor lumbar tenderness Extremity normal to inspection General Extremety ED: Negative for edema or tenderness General Extremity: Negative for edema Neuro oriented x3 and no sensory deficits noted Sensorium / Orientation: awake and alert Skin no rashes or lesions noted and no wounds MDM MDM MDM Narrative Medical decision making narrative: Patient presents with recurrent vomiting. Dry heaving in the ED. She is postop. Laboratory work with blood work was obtained abdominal labs are all normal except potassium 3.2. Lipase and liver enzymes normal white count of 5.6. With patient being postop, rule out ileus with a CT scan obtained. Negative for ileus or obstruction. Constipation noted. Patient's ureteral stent was intact. Noted left perinephric stranding with edema. This likely secondary to postop changes. She denies urinary symptoms. She is afebrile with a normal white count. There is difficulty with IV placement by nursing attempted by myself also with ultrasound, there was initial blood return however with flushing it would infiltrate. This was occurred on multiple occasions. She was given IM Haldol, there is no emesis afterwards however states she did not feel well. Discussed continuing to attempt IV placement, however she states would like to go home with a negative work-up currently. She has oral Haldol at home. She has prescription for Colace along with MiraLAX from her discharge. She will call her urologist tomorrow. She is given GI for follow-up locally. Reported by mother has seen GI from one of her hospitalizations was told likely secondary to her stent placement. Discharged with return precautions. Patient is being discharged under pandemic conditions under declared global, national and state disaster activation, with limited medical resources. Patient and community understands this. Results discussed in layman's terms to the patient satisfaction. All questions answered in layman's terms. Patient understands importance of follow-up care as directed. Patient has been in structed to return to the ED immediately if new symptoms, problems, or questions occur. We mutually agree with the plan of disposition. The patient understand that they may call or return with any questions or concerns at any time. Lab Data Attestation: I reviewed the patient's lab results. Labs: Laboratory Results - last 24 hr 09/12/21 09/12/21 09/12/21 01:52 02:20 02:20 WBC Cancelled 5.6 Corrected WBC Cancelled RBC Cancelled 4.81 Hgb Cancelled 11.7 L Hct Cancelled 37.7 MCV Cancelled 78.4 L MCH Cancelled 24.3 L MCHC Cancelled 31.0 L RDW Std Deviation Cancelled 42.2 RDW Coeff of Roz Cancelled 15.0 H Plt Count Cancelled 269 MPV Cancelled 9.7 Immature Gran % (Auto) Cancelled 0.200 Neut % (Auto) Cancelled 72.6 H Lymph % (Auto) Cancelled 18.0 L [place] % (Auto) Cancelled 6.5 Eos % (Auto) Cancelled 2.0 Baso % (Auto) Cancelled 0.7 Absolute Neuts (auto) Cancelled 4.0 Absolute Lymphs (auto) Cancelled 1.00 Total Counted Cancelled Neutrophils % (Manual) Cancelled Band Neutrophils % Cancelled Lymphocytes % (Manual) Cancelled Monocytes % (Manual) Cancelled Eosinophils % (Manual) Cancelled Basophils % (Manual) Cancelled Metamyelocytes % Cancelled Myelocytes % Cancelled Promyelocytes % Cancelled Blast Cells % Cancelled Plasma Cell % (Manual) Cancelled Other Cells % Cancelled Nucleated RBC % Cancelled 0 Nucleated RBCs/100 WBC Cancelled Differential Comment Cancelled Diff Path Review Cancelled Hypersegmented Neuts Cancelled Atypical Lymphocytes Cancelled Reactive Lymphocytes Cancelled Smudge Cells Cancelled Toxic Granulation Cancelled Toxic Vacuolation Cancelled Dohle Bodies Cancelled Mari Rods Cancelled Platelet Estimate Cancelled Plt Morphology Comment Cancelled RBC Morphology Cancelled Polychromasia Cancelled Hypochromasia Cancelled Poikilocytosis Cancelled Basophilic Stippling Cancelled Anisocytosis Cancelled Microcytosis Cancelled Macrocytosis Cancelled Spherocytes Cancelled Sickle Cells Cancelled Target Cells Cancelled Tear Drop Cells Cancelled Ovalocytes Cancelled Stomatocytes Cancelled [place] Bodies Cancelled [place] Cells Cancelled Bite Cells Cancelled Crenated Cell Cancelled Acanthocytes (Spur) Cancelled Rouleaux Cancelled Schistocytes Cancelled Sodium 138 Potassium 3.2 L Chloride 103 Carbon Dioxide 25.0 Anion Gap 10 BUN 7 Creatinine 0.57 Estim Creat Clear Calc 163.16 Est GFR (MDRD) Af Amer 172 Est GFR (MDRD) Non-Af 142 BUN/Creatinine Ratio 12.3 Glucose 98 Calcium 9.0 Total Bilirubin 0.40 Direct Bilirubin 0.08 AST 31 ALT 16 Alkaline Phosphatase 49 Total Protein 7.4 Albumin 3.4 Globulin 4.0 Albumin/Globulin Ratio 0.8 L Lipase 09/12/21 02:20 WBC Corrected WBC RBC Hgb Hct MCV MCH MCHC RDW Std Deviation RDW Coeff of Roz Plt Count MPV Immature Gran % (Auto) Neut % (Auto) Lymph % (Auto) [place] % (Auto) Eos % (Auto) Baso % (Auto) Absolute Neuts (auto) Absolute Lymphs (auto) Total Counted Neutrophils % (Manual) Band Neutrophils % Lymphocytes % (Manual) Monocytes % (Manual) Eosinophils % (Manual) Basophils % (Manual) Metamyelocytes % Myelocytes % Promyelocytes % Blast Cells % Plasma Cell % (Manual) Other Cells % Nucleated RBC % Nucleated RBCs/100 WBC Differential Comment Diff Path Review Hypersegmented Neuts Atypical Lymphocytes Reactive Lymphocytes Smudge Cells Toxic Granulation Toxic Vacuolation Dohle Bodies Mari Rods Platelet Estimate Plt Morphology Comment RBC Morphology Polychromasia Hypochromasia Poikilocytosis Basophilic Stippling Anisocytosis Microcytosis Macrocytosis Spherocytes Sickle Cells Target Cells Tear Drop Cells Ovalocytes Stomatocytes [place] Bodies Lisa Cells Bite Cells Crenated Cell Acanthocytes (Spur) Rouleaux Schistocytes Sodium Potassium Chloride Carbon Dioxide Anion Gap BUN Creatinine Estim Creat Clear Calc Est GFR (MDRD) Af Amer Est GFR (MDRD) Non-Af BUN/Creatinine Ratio Glucose Calcium Total Bilirubin Direct Bilirubin AST ALT Alkaline Phosphatase Total Protein Albumin Globulin Albumin/Globulin Ratio Lipase 96 Radiography Diagnostic Testing: Clinical Impression(s) from Imaging Studies Abdomen/Pelvis CT 09/12/21 02:12 IMPRESSION: 1. Status post recent hysterectomy; associated intra-abdominal free air and subcutaneous subcutaneous emphysema. No evidence of pelvic abscess or large fluid collection. No evidence of hemoperitoneum. 2. Left ureteral stent with mild left hydronephrosis. Left-sided perinephric fat stranding and edema. Possible superimposed infection. 3. Fecal retention throughout the colon suggesting constipation Electronically Signed: Jimbo Ramirez DO at 3:13 EST Tel , Service support , Discharge Plan Triage Chief Complaint: Nausea/Vomiting ED Provider: Tino Jenkins Dx/Rx/DC Orders Clinical Impression: Vomiting, Post-op pain Instructions: Pain Management After Surgery, ED Vomiting (Adult) Prescriptions: No Action acetaminophen [Tylenol] 325 mg Tablet 650 mg PO Q4H PRN PRN (Reason: Fever, pain 1-10/10) Qty: 0 RF: 0 famotidine 20 mg Tablet 20 mg PO BID 30 Days Qty: 60 RF: 0 lisinopril 10 mg Tablet 10 mg PO DAILY 30 Days Qty: 30 RF: 0 ondansetron 4 mg tablet,disintegrating 4 mg PO Q6H PRN (Reason: nausea and vomiting) Qty: 10 RF: 0 naproxen 500 mg tablet 500 mg PO BID RF: 0 mirtazapine 15 mg tablet,disintegrating 15 mg PO QHS RF: 0 oxycodone 5 mg Tablet 10 mg PO Q6H PRN (Reason: pain (scale score 7-10)) 3 Days Qty: 12 RF: 0 haloperidol 1 mg tablet 1 mg PO TID Qty: 20 RF: 0 sennosides-docusate sodium [Senna-S] 8.6-50 mg tablet 1 tab-cap PO QHS Qty: 30 RF: 0 polyethylene glycol 3350 [Miralax] 17 gram/dose powder 17 g PO BID Qty: 238 RF: 0 ondansetron [ondansetron] 4 MG tablet 4 mg PO Q8H PRN PRN (Reason: Nausea) Qty: 10 RF: 0 levofloxacin 750 mg tablet 750 mg PO DAILY Qty: 7 RF: 0 haloperidol 1 mg tablet 1 mg PO TID Qty: 10 RF: 0 hydrocodone-acetaminophen 5-325 mg tablet 1 tab PO Q6H PRN (Reason: pain) 3 Days Qty: 10 RF: 0 Primary Care Provider: Devonte Henry Referrals: Devonte Henry MD [Primary Care Provider] - FriendFrancisco DO [STAFF PHYSICIAN] - 3-5 Days Activity Restrictions/Additional Instructions: Labs are stable, CAT scan negative for ileus or obstruction. Noted left. Nephrotic stranding and edema likely from surgical history. White count normal. Continue your Haldol for your symptoms. Discussed with your urologist Dr. Reyes tomorrow. You are given follow-up with GI. Return if any worsening symptoms. Disposition Disposition: Home, Self Care Discharge Date/Time: 09/12/21 03:35
--- NOTE | 2021-09-12 02:12 | CT_ITS ---
STUDY: CT ABDOMEN AND PELVIS WITHOUT CONTRAST REASON FOR EXAM: Female, 21 years old. vomiting -- post op, hysterectomy RADIATION DOSAGE (If Supplied By Facility): CTDIvol = ( 7.62 ) mGy, DLP = ( 416.72 ) mGycm TECHNIQUE: Transaxial images were obtained from the dome of the diaphragm to the symphysis pubis without oral contrast, and without intravenous contrast. Sagittal and coronal images were reconstructed. Individualized dose optimization techniques were used for this CT. COMPARISON: 08/24/2021 FINDINGS: The visualized lung bases are unremarkable. The visualized portions of the heart are within normal limits. Normal liver. Normal gallbladder and extrahepatic biliary system. Normal spleen. Normal pancreas. Normal bilateral adrenal glands. Normal right kidney. Left ureteral stent with mild hydronephrosis. Left-sided perinephric fat stranding and edema. Normal visualized stomach. Normal small intestine. Mild fecal retention throughout the colon. Otherwise, unremarkable large bowel. The appendix is visualized and appears normal. Normal abdominal aorta. Normal inferior vena cava. Normal retroperitoneum. Normal urinary bladder. Status post recent hysterectomy. No evidence of pelvic abscess or hemoperitoneum. Small amount of pelvic free fluid. Unremarkable ovaries. Expected postoperative free air in the abdomen and subcutaneous tissues of the anterior abdominal wall. Normal osseous structures. CT/Abdomen/Pelvis without Cont IMPRESSION: 1. Status post recent hysterectomy; associated intra-abdominal free air and subcutaneous subcutaneous emphysema. No evidence of pelvic abscess or large fluid collection. No evidence of hemoperitoneum. 2. Left ureteral stent with mild left hydronephrosis. Left-sided perinephric fat stranding and edema. Possible superimposed infection. 3. Fecal retention throughout the colon suggesting constipation Electronically Signed: Jimbo Ramirez DO at 3:13 EST Tel , Service support ,
[2021-09-12 02:21] LABS: ALB/GLOB Ratio 0.8 RATIO (0.9-2.4); AST(SGOT) 31 U/L (15-37); Alanine Aminotransfer ALT/SGPT 16 U/L (13-56); Albumin, Serum 3.4 g/dL (3.2-5.0); Alkaline Phosphatase 49 U/L (45-117); Anion Gap 10 (5-15); BUN 7 mg/dL (7-18); BUN/Creat Ratio 12.3 RATIO (10-20); Bilirubin, Direct 0.08 mg/dL (0.00-0.30); Chloride 103 mmol/L (98-107); Creatinine, Serum 0.57 mg/dL (0.55-1.02); EST Glomerular Filtration Rate 142 mL/min (>60); Est Glom Filt Rate - Afr Amer 172 mL/min (>60); Estimated Creatinine Clearance 163.16 ml/min; Glucose 98 mg/dL (74-106); Potassium 3.2 mmol/L (3.5-5.1); Protein, Total 7.4 g/dL (6.4-8.2); Sodium Level 138 mmol/L (136-145)
[2021-09-12 02:26] LABS: Basophil# 0.04 X10^3/uL; Basophil% 0.7 % (0-1); Eosinophil# 0.11 X10^3/uL; Hematocrit 37.7 % (37-47); Hemoglobin 11.7 g/dL (12.0-15.0); Mean Corpuscular Hgb 24.3 pg (27.0-32.0); Mean Corpuscular Volume 78.4 fL (81-99); Mean Platelet Vol. 9.7 fl (6.2-12.0); Monocyte# 0.36 X10^3/uL; Monocyte% 6.5 % (0-10); NRBC Flagged by Analyzer 0 % (0-5); Neutrophil # 4.04 X10^3/uL (2.7-7.7); Neutrophil % 72.6 % (47-70); Platelet Count 269 K/mm3 (150-450); RBC Distribution Width SD 42.2 fl (35.1-43.9); Red Blood Count 4.81 M/mm3 (4.2-5.4); White Blood Count 5.6 K/mm3 (4.4-11.0)
[2021-09-12] MEDS: Haloperidol Lactate 5 MG/ML Vial IM (02:38)
--- NOTE | 2021-09-12 02:42 | ED.RN ---
iris attempts to start iv by [address] figueroa,unsuccessful.
[2021-09-12 02:49] LABS: Lipase 96 U/L (73-393)
[2021-09-12 03:35] VITALS: RESP 16
== END 2021-09-12 03:35 | disposition home or self-care (01) ==
PROVIDERS: Emergency Provider Emergency Medicine; Visit Provider Emergency Medicine
DX: R11.2 Nausea with vomiting, unspecified (principal); G89.18 Other acute postprocedural pain
CPT/HCPCS: 74176; 80053; 80076; 83690; 85025; 96372; 99282; J7030; A4216

== ENCOUNTER 2021-09-30 00:11 | Emergency (ER) | payer MEDICAID, SELFPAY ==
[2021-09-30 00:12] VITALS: BP 135/108; PULSE 120; RESP 18; TEMP 36.3; O2SAT 100; BMI 24.4
[2021-09-30 00:40] LABS: Absolute Lymphocyte Count 1.22 X10^3/uL (0.83-4.51); Absolute Neutrophil Count 6.7 X10^3/uL (2.0-7.7); Basophil# 0.05 X10^3/uL; Basophil% 0.6 % (0-1); Eosinophil# 0.08 X10^3/uL; Eosinophils% 0.9 % (0-5); Hematocrit 39.5 % (37-47); Lymphocyte # 1.22 X10^3/ul (0.83-4.51); Lymphocyte % 14.4 % (19-41); Mean Corp Hgb Conc 30.4 g/dL (32-36); Mean Corpuscular Hgb 24.1 pg (27.0-32.0); Mean Corpuscular Volume 79.5 fL (81-99); Mean Platelet Vol. 9.2 fl (6.2-12.0); Monocyte# 0.43 X10^3/uL; Monocyte% 5.1 % (0-10); NRBC Flagged by Analyzer 0 % (0-5); Neutrophil # 6.69 X10^3/uL (2.7-7.7); Neutrophil % 78.8 % (47-70); Platelet Count 327 K/mm3 (150-450); RBC Distribution Width CV 14.9 % (11.6-14.6); RBC Distribution Width SD 42.7 fl (35.1-43.9); Red Blood Count 4.97 M/mm3 (4.2-5.4); White Blood Count 8.5 K/mm3 (4.4-11.0)
--- NOTE | 2021-09-30 00:48 | CT_ITS ---
STUDY: CT ABDOMEN AND PELVIS WITHOUT CONTRAST REASON FOR EXAM: Female, 21 years old. abdominal pain RADIATION DOSAGE (If Supplied By Facility): CTDIvol = ( 7.37 ) mGy, DLP = ( 397.52 ) mGycm TECHNIQUE: Transaxial images were obtained from the dome of the diaphragm to the symphysis pubis without oral contrast, and without intravenous contrast. Sagittal and coronal images were reconstructed. Individualized dose optimization techniques were used for this CT. COMPARISON: 09/12/2021 FINDINGS: The visualized lung bases are unremarkable. The visualized portions of the heart are within normal limits. Normal liver. Normal gallbladder and extrahepatic biliary system. Normal spleen. Normal pancreas. Normal bilateral adrenal glands. Stable left ureter stent. Mild left hydronephrosis and left ureter. No obstructing stone. Unremarkable right kidney. Normal visualized stomach. Normal small intestine. Continued moderate constipation throughout the large bowel. The appendix is visualized and appears normal. Normal abdominal aorta. Normal inferior vena cava. Normal retroperitoneum. Normal urinary bladder. Normal abdominal wall. Normal osseous structures. CT/Abdomen/Pelvis without Cont IMPRESSION: Stable left-sided ureteral stent. No significant hydronephrosis or stone. Continued mild left periureteral inflammation. Increased constipation. Normal appendix Electronically Signed: Jimbo Ramirez DO at 2:10 EST Tel , Service support ,
[2021-09-30] MEDS: Haloperidol Lactate 5 MG/ML Vial 3 MG IM (00:54)
[2021-09-30 00:57] LABS: AST(SGOT) 17 U/L (15-37); Alanine Aminotransfer ALT/SGPT 22 U/L (13-56); Albumin, Serum 4.1 g/dL (3.2-5.0); Alkaline Phosphatase 55 U/L (45-117); Anion Gap 11 (5-15); BUN 11 mg/dL (7-18); Calcium,Total 9.8 mg/dL (8.5-10.1); Chloride 106 mmol/L (98-107); Creatinine, Serum 0.92 mg/dL (0.55-1.02); EST Glomerular Filtration Rate 82 mL/min (>60); Est Glom Filt Rate - Afr Amer 99 mL/min (>60); Estimated Creatinine Clearance 101.09 ml/min; Glucose 117 mg/dL (74-106); Potassium 3.6 mmol/L (3.5-5.1); Protein, Total 8.1 g/dL (6.4-8.2); Sodium Level 141 mmol/L (136-145)
[2021-09-30 02:00] VITALS: BP 147/92; PULSE 118; RESP 16; O2SAT 99
[2021-09-30] MEDS: DiphenhydrAMINE 50 MG/ML Syringe 25 MG IM (03:02)
[2021-09-30] MEDS: Metoclopramide 10 MG/2 ML Vial IM (03:03)
[2021-09-30] MEDS: Ketorolac 15 MG/ML Vial IM (03:03)
[2021-09-30 03:52] LABS: Color, Urine Yellow (Yellow); Glucose, Dipstick Normal (Normal); Leukocyte Esterase-Dipstick 500 /ul (Negative); Nitrite-Dipstick Negative (Negative); Occult Blood-Urine 250 /ul (Negative); Protein-Dipstick 30 mg/dl (Negative); Urine Bilirubin Dipstick Negative (Negative); Urine Clarity Sl. Cloudy (Clear); Urine Urobilinogen Normal (Normal)
[2021-09-30 04:05] VITALS: BP 145/101; PULSE 124; RESP 16; TEMP 37.1; O2SAT 100
--- NOTE | 2021-09-30 04:13 | ED.VIS.GI ---
HPI HPI - GI History of Present Illness Chief Complaint: Nausea/Vomiting Narrative Narrative: 21-year-old female with history of PCOS, abdominal pain, nausea and vomiting. Patient states she started vomiting again today about 5 hours prior to arrival. She is not able to hold down any food or fluids over this timeframe. She denies fever or chills. Patient does state that she has diffuse abdominal pain. Patient does report that she is having small hard stools. She is not having meaningful bowel movements or diarrhea. Patient reports that she has tried getting in a hot shower and states that hot water on her stomach specifically makes her feel better. She tried this today however she is not improving. Patient does state that she does not smoke marijuana or do any kind of THC product. Its not specifically in the left flank. She is denying urinary symptoms. Home which is not helping. Her urologist is Dr. Barahona who recently had robotic left ureteral ureterotomy and anterior grade stent insertion 09/09/2021. On 09/14/2021 through 09/19/2021 patient was inpatient at [facility] where she was evaluated secondary to a CT scan that showed a possible small fluid collection behind the bladder concerning for leakage. After being transferred to [facility] she had normal labs and a KUB which showed her stent was in good position. She had a urinalysis and culture that were negative. CT cystogram that was negative. Patient at that point was noted to have chronic constipation and while she was inpatient was seen by pain management. She was discharged home on a bowel regimen. She states that she takes MiraLAX daily. She also takes decussate sodium. Patient was also discharged home with Percocet and Zofran. [facility] Medical History Alcohol abuse Cancer Depression Endometrial cancer Hydronephrosis Hypertension Menorrhagia Non-smoker Retained ureteral stent Ureter injury Ureteral stricture, left Home Medications acetaminophen [Tylenol] 650 mg PO Q4H PRN PRN #0 tab 07/12/21 [Rx Last Taken Unknown] famotidine 20 mg PO BID 30 Days #60 tab 07/12/21 [Rx Last Taken Unknown] ondansetron 4 mg PO Q6H PRN #10 tab 07/18/21 [Rx Last Taken Unknown] polyethylene glycol 3350 [Miralax] 17 g PO BID #238 g 07/21/21 [Rx Last Taken Unknown] sennosides-docusate sodium [Senna-S] 1 tab-cap PO QHS #30 tab 07/21/21 [Rx Last Taken Unknown] ciprofloxacin HCl 500 mg PO BID #14 tablet 09/30/21 [Rx Last Taken Unknown] haloperidol 2 mg PO Q8H PRN #20 tab 09/30/21 [Rx Last Taken Unknown] sertraline [Zoloft] 50 mg PO DAILY 09/30/21 [History Last Taken Unknown] Allergy/AdvReac Type Severity Reaction Status Date / Time ceftriaxone [From Rocephin] Allergy Hives Verified 09/30/21 00:14 promethazine [From Phenergan] Allergy Vomiting Verified 09/30/21 00:14 Ringer's solution,lactated Allergy Hives Verified 09/30/21 00:14 Family History Father No problems noted. Mother No problems noted. Surgical History History of hysterectomy for cancer History of renal stent Social History household members: family Smoking Status: Never smoker alcohol intake: former substance use type: does not use ROS ROS ED Constitutional Constitutional ED: Denies chills or fever(s) ENT ENT ED: Denies rhinorrhea or sore throat Cardiovascular Cardiovascular: Denies chest pain or palpitations Respiratory/Chest Respiratory/Chest: Denies cough or dyspnea Gastrointestinal Gastrointestinal: Reports abdominal pain, constipation, nausea and vomiting Genitourinary Genitourinary ED: Denies dysuria or hematuria Musculoskeletal Musculoskeletal: Denies arthralgias or myalgias Integumentary Denies Abrasions or rash Neurologic Neurologic: Denies headache(s) or paresthesias EXAM Physical Exam Const Vital Signs: 09/30/21 00:12 09/30/21 02:00 09/30/21 04:05 Temperature 97.4 F L 98.7 F Temperature Source Temporal Temporal Pulse Rate 120 H 118 H 124 H Respiratory Rate 18 16 16 Blood Pressure 135/108 H 147/92 H 145/101 H Blood Pressure Mean 117 110 115 Pulse Ox 100 99 100 Oxygen Delivery Method Room Air Room Air 09/30/21 05:00 Temperature Temperature Source Pulse Rate 128 H Respiratory Rate 16 Blood Pressure 145/99 H Blood Pressure Mean Pulse Ox 99 Oxygen Delivery Method Positive well nourished General Appearance ED: NAD; Negative for pallor HEENT Reports moist mucous membranes normocephalic and atraumatic Eyes PERRL and EOMs intact bilaterally Resp normal respiratory effort and clear to auscultation bilaterally Cardio regular rhythm Rate: tachycardic GI GI Narrative: Generalized abdominal tenderness. Abdomen nonperitoneal. Back/Spine no CVA tenderness Neuro Sensorium / Orientation: alert and oriented to person Psych mental status grossly normal and thought process normal Skin General Skin Exam: Negative for jaundice or pallor MDM MDM MDM Narrative Medical decision making narrative: Patient presenting with diffuse abdominal pain, nausea, vomiting. Looking through the medical record this appears to be a chronic issue which does appear to be unchanged. Looking through her [facility] report she has multiple prescribers and multiple different narcotics including tramadol, Bayard, Percocet, hydromorphone throughout 2020. This may be contributed to her constipation issue. CBC is obtained and shows no leukocytosis. Hemoglobin hematocrit are stable. Platelets are normal. Renal function and electrolytes are also normal. LFTs within normal limits. Urinalysis shows 150 ketones which is baseline for her. There is also occult blood which is baseline. She does have 500 leukocyte esterase as well as 50-100 WBCs and 2+ urine bacteria with 0-5 squamous epithelial cells. Looking back at her previous cultures last few have been negative. Looking on [facility] she had negative cultures at [facility] as well. I will send for urine culture and treat her with Cipro as her previous UTIs have been sensitive to this. Patient was initially treated with IM Haldol for her nausea. On reevaluation she states that she still having nausea and pain so she was given Reglan, Benadryl, Toradol IM. Occasions were given IM due to difficulty obtaining an IV access. I did obtain a CT of the abdomen pelvis without contrast which shows stable periureteral inflammation. There is increased constipation throughout the bowels. I suspect this is why the patient has diffuse abdominal pain. Patient is given a prescription for magnesium citrate and Haldol which she states helps over nausea more than other medicines. I did write her a prescription for Cipro in case her urine culture comes back positive but sensitive and negative I will have her wait on this. She is not having any urinary symptoms today. I counseled her that if she has worsening of her symptoms that she needs to follow-up with her urology specialist Dr. Barahona. She states that she is supposed to follow-up on the and will call for an earlier appointment. Impression: 1. Acute on chronic abdominal pain 2. Constipation 3. Nausea/vomiting Lab Data Attestation: I reviewed the patient's lab results. Labs: Laboratory Results - last 24 hr 09/30/21 09/30/21 09/30/21 00:34 00:34 03:12 WBC 8.5 RBC 4.97 Hgb 12.0 Hct 39.5 MCV 79.5 L MCH 24.1 L MCHC 30.4 L RDW Std Deviation 42.7 RDW Coeff of Roz 14.9 H Plt Count 327 MPV 9.2 Immature Gran % (Auto) 0.200 Neut % (Auto) 78.8 H Lymph % (Auto) 14.4 L [place] % (Auto) 5.1 Eos % (Auto) 0.9 Baso % (Auto) 0.6 Absolute Neuts (auto) 6.7 Absolute Lymphs (auto) 1.22 Nucleated RBC % 0 Sodium 141 Potassium 3.6 Chloride 106 Carbon Dioxide 24.0 Anion Gap 11 BUN 11 Creatinine 0.92 Estim Creat Clear Calc 101.09 Est GFR (MDRD) Af Amer 99 Est GFR (MDRD) Non-Af 82 BUN/Creatinine Ratio 12.0 Glucose 117 H Calcium 9.8 Total Bilirubin 0.30 AST 17 ALT 22 Alkaline Phosphatase 55 Total Protein 8.1 Albumin 4.1 Globulin 4.0 Albumin/Globulin Ratio 1.0 Urine Color Yellow Urine Clarity Sl. Cloudy Urine pH 8.0 Ur Specific [place] 1.010 Urine Protein 30 H Urine Glucose (UA) Normal Urine Ketones 150 A* Urine Occult Blood 250 H Urine Nitrite Negative Urine Bilirubin Negative Urine Urobilinogen Normal Ur Leukocyte Esterase 500 H Urine RBC 50-100 SEEN Urine WBC 50-100 SEEN Ur Squamous Epith Cells 0-5 SEEN Urine Bacteria 2+ Urine Mucus 1+ Urine Opiates Screen Urine Methadone Screen Ur Barbiturates Screen Ur Phencyclidine Scrn Ur Amphetamines Screen U Methamphetamin-MDMA U Benzodiazepines Scrn Urine Cocaine Screen U Cannabinoids Screen Ur Drug Screen Comment 09/30/21 04:30 WBC RBC Hgb Hct MCV MCH MCHC RDW Std Deviation RDW Coeff of Roz Plt Count MPV Immature Gran % (Auto) Neut % (Auto) Lymph % (Auto) [place] % (Auto) Eos % (Auto) Baso % (Auto) Absolute Neuts (auto) Absolute Lymphs (auto) Nucleated RBC % Sodium Potassium Chloride Carbon Dioxide Anion Gap BUN Creatinine Estim Creat Clear Calc Est GFR (MDRD) Af Amer Est GFR (MDRD) Non-Af BUN/Creatinine Ratio Glucose Calcium Total Bilirubin AST ALT Alkaline Phosphatase Total Protein Albumin Globulin Albumin/Globulin Ratio Urine Color Urine Clarity Urine pH Ur Specific [place] Urine Protein Urine Glucose (UA) Urine Ketones Urine Occult Blood Urine Nitrite Urine Bilirubin Urine Urobilinogen Ur Leukocyte Esterase Urine RBC Urine WBC Ur Squamous Epith Cells Urine Bacteria Urine Mucus Urine Opiates Screen NEGATIVE Urine Methadone Screen NEGATIVE Ur Barbiturates Screen NEGATIVE Ur Phencyclidine Scrn NEGATIVE Ur Amphetamines Screen NEGATIVE U Methamphetamin-MDMA NEGATIVE U Benzodiazepines Scrn NEGATIVE Urine Cocaine Screen NEGATIVE U Cannabinoids Screen POSITIVE H Ur Drug Screen Comment Radiography Diagnostic Testing: Clinical Impression(s) from Imaging Studies Abdomen/Pelvis CT 09/30/21 00:48 IMPRESSION: Stable left-sided ureteral stent. No significant hydronephrosis or stone. Continued mild left periureteral inflammation. Increased constipation. Normal appendix Electronically Signed: Jimbo Ramirez DO at 2:10 EST Tel , Service support , Discharge Plan Triage Chief Complaint: Nausea/Vomiting ED Provider: Josue Trotter Dx/Rx/DC Orders Instructions: ED Constipation (Adult), ED CYSTITIS Female Adult, ED Vomiting (Adult) Prescriptions: New haloperidol 2 mg tablet 2 mg PO Q8H PRN (Reason: nausea and vomiting) Qty: 20 RF: 0 ciprofloxacin HCl 500 mg tablet 500 mg PO BID Qty: 14 RF: 0 No Action acetaminophen [Tylenol] 325 mg Tablet 650 mg PO Q4H PRN PRN (Reason: Fever, pain 1-10/10) Qty: 0 RF: 0 famotidine 20 mg Tablet 20 mg PO BID 30 Days Qty: 60 RF: 0 ondansetron 4 mg tablet,disintegrating 4 mg PO Q6H PRN (Reason: nausea and vomiting) Qty: 10 RF: 0 sennosides-docusate sodium [Senna-S] 8.6-50 mg tablet 1 tab-cap PO QHS Qty: 30 RF: 0 polyethylene glycol 3350 [Miralax] 17 gram/dose powder 17 g PO BID Qty: 238 RF: 0 sertraline [Zoloft] 50 mg Tablet 50 mg PO DAILY RF: 0 Primary Care Provider: Devonte Henry Referrals: Devonte Henry MD [Primary Care Provider] - Disposition Disposition: Home, Self Care Discharge Date/Time: 09/30/21 05:04
[2021-09-30 04:16] LABS: Ketone-Dipstick 150 mg/dl (Negative)
[2021-09-30 04:21] LABS: Bacteria 2+ /hpf (None Seen); Mucous, Urine 1+ /hpf (<or=2+); Red Blood Cells-Urine 50-100 SEEN /hpf (0-5); Squamous Epithelial Cells - UA 0-5 SEEN /hpf (5-10); White Blood Cells 50-100 SEEN /hpf (0-5)
[2021-09-30 05:00] VITALS: BP 145/99; PULSE 128; RESP 16; O2SAT 99
[2021-09-30 05:00] LABS: Amphetamine Urine VISTA NEGATIVE (<1000 ng/mL); Barbiturate Urine VISTA NEGATIVE (< 200 ng/mL); Benzodiazepine Urine VISTA NEGATIVE (< 200 ng/mL); Cocaine Urine VISTA NEGATIVE (< 300 ng/mL); Ecstacy Urine VISTA NEGATIVE (< 500 ng/mL); Methadone Urine VISTA NEGATIVE (< 300 ng/mL); PCP Urine VISTA NEGATIVE (< 25 ng/mL); THC Urine VISTA POSITIVE (< 50 ng/mL); Vista UDS pH Range 8
[2021-09-30] MEDS: Magnesium Citrate 300 ML PO (05:03)
== END 2021-09-30 05:04 | disposition home or self-care (01) ==
PROVIDERS: Emergency Provider Student in an Organized Health Care Education/Training Program; Visit Provider Student in an Organized Health Care Education/Training Program
DX: R11.2 Nausea with vomiting, unspecified (principal); I10 Essential (primary) hypertension; R10.9 Unspecified abdominal pain; K59.09 Other constipation; Z85.42 Personal history of malignant neoplasm of other parts of uterus; Z87.442 Personal history of urinary calculi; Z79.899 Other long term (current) drug therapy; E28.2 Polycystic ovarian syndrome; G89.29 Other chronic pain; Z96.0 Presence of urogenital implants
CPT/HCPCS: 36415; 74176; 80053; 80307; 81001; 85025; 87086; 87088; 96372; 99282; A4216

== ENCOUNTER 2021-10-13 23:46 | Emergency (ER) | payer MEDICAID, SELFPAY ==
[2021-10-13 23:47] VITALS: BP 92/80; PULSE 122; RESP 18; TEMP 36.6; O2SAT 100; BMI 25.0
[2021-10-13 23:49] VITALS: BP 92/80; PULSE 122; RESP 18; TEMP 36.6; O2SAT 100
[2021-10-14] MEDS: 0.9% Normal Saline 1,000 ML 999 ML IV (00:12)
[2021-10-14] MEDS: proCHLORPERazine 10 MG/2 ML Vial IV (00:13)
[2021-10-14] MEDS: HYDROmorphone 1 MG/ML Syringe IV ×2 (00:14→01:18)
[2021-10-14 00:19] LABS: Absolute Neutrophil Count 8.8 X10^3/uL (2.0-7.7); Basophil# 0.06 X10^3/uL; Basophil% 0.5 % (0-1); Eosinophil# 0.32 X10^3/uL; Eosinophils% 2.8 % (0-5); Hematocrit 29.7 % (37-47); Hemoglobin 9.8 g/dL (12.0-15.0); Mean Corpuscular Hgb 25.2 pg (27.0-32.0); Mean Corpuscular Volume 76.3 fL (81-99); Mean Platelet Vol. 9.6 fl (6.2-12.0); Monocyte# 0.62 X10^3/uL; Monocyte% 5.4 % (0-10); NRBC Flagged by Analyzer 0 % (0-5); Neutrophil # 8.81 X10^3/uL (2.7-7.7); Platelet Count 262 K/mm3 (150-450); RBC Distribution Width CV 16.2 % (11.6-14.6); RBC Distribution Width SD 43.8 fl (35.1-43.9); Red Blood Count 3.89 M/mm3 (4.2-5.4); White Blood Count 11.5 K/mm3 (4.4-11.0)
[2021-10-14 00:28] LABS: Anion Gap 8 (5-15); BUN 12 mg/dL (7-18); BUN/Creat Ratio 12.8 RATIO (10-20); Calcium,Total 8.8 mg/dL (8.5-10.1); Chloride 109 mmol/L (98-107); Creatinine, Serum 0.94 mg/dL (0.55-1.02); EST Glomerular Filtration Rate 80 mL/min (>60); Est Glom Filt Rate - Afr Amer 96 mL/min (>60); Estimated Creatinine Clearance 98.94 ml/min; Glucose 119 mg/dL (74-106); Potassium 3.7 mmol/L (3.5-5.1); Sodium Level 140 mmol/L (136-145)
--- NOTE | 2021-10-14 01:13 | EDS_ITS ---
HPI History of Present Illness Chief Complaint: Nausea/Vomiting Narrative Narrative: Patient is a 21-year-old female with complex past medical history. She states that she has had intermittent bouts of vomiting ever since she had to have a ureteral stent placed. She states this has been occurring spontaneously over the past year. She states each time it happens the home medications do not seem to help when she will need to present for IV fluids as well as IV antiemetics. Patient reports that she was recently at an outside hospital and admitted for a blood infection. She states that she had a PICC line placed and was recently discharged 2 days ago on her IV antibiotics. She states has been taking those as directed with no obvious complications while she was in the hospital or at home. She states today the vomiting began this morning and has persisted throughout the day. She states she is not been able to get the vomiting under control despite her home medications and secondary to this comes in for evaluation. [facility] Medical History Alcohol abuse Cancer Depression Endometrial cancer Hydronephrosis Hypertension Menorrhagia Non-smoker Retained ureteral stent Ureter injury Ureteral stricture, left Home Medications acetaminophen [Tylenol] 650 mg PO Q4H PRN PRN #0 tab 07/12/21 [Rx Last Taken Unknown] famotidine 20 mg PO BID 30 Days #60 tab 07/12/21 [Rx Last Taken Unknown] ondansetron 4 mg PO Q6H PRN #10 tab 07/18/21 [Rx Last Taken Unknown] polyethylene glycol 3350 [Miralax] 17 g PO BID #238 g 07/21/21 [Rx Last Taken Unknown] sennosides-docusate sodium [Senna-S] 1 tab-cap PO QHS #30 tab 07/21/21 [Rx Last Taken Unknown] haloperidol 2 mg PO Q8H PRN #20 tab 09/30/21 [Rx Last Taken Unknown] sertraline [Zoloft] 50 mg PO DAILY 09/30/21 [History Last Taken Unknown] mirtazapine mg 10/14/21 [History Last Taken Unknown] olanzapine mg 10/14/21 [History Last Taken Unknown] olanzapine mg 10/14/21 [History Last Taken Unknown] Allergy/AdvReac Type Severity Reaction Status Date / Time ceftriaxone [From Rocephin] Allergy Hives Verified 09/30/21 00:14 promethazine [From Phenergan] Allergy Vomiting Verified 09/30/21 00:14 Ringer's solution,lactated Allergy Hives Verified 09/30/21 00:14 Family History Father No problems noted. Mother No problems noted. Surgical History History of hysterectomy for cancer History of renal stent Social History household members: family Smoking Status: Never smoker alcohol intake: former substance use type: does not use ROS ROS ED Constitutional Constitutional ED: Denies chills or fever(s) ENT ENT ED: Reports sore throat Cardiovascular Cardiovascular: Denies chest pain Respiratory/Chest Respiratory/Chest: Denies cough or dyspnea Gastrointestinal Gastrointestinal: Reports abdominal pain, nausea and vomiting; Denies diarrhea Genitourinary Genitourinary ED: Denies dysuria Musculoskeletal Musculoskeletal: Reports myalgias Integumentary Denies rash Neurologic Neurologic: Denies headache(s) Hematologic/Lymphatic Hematologic/Lymphatic: Denies easy bleeding or easy bruising EXAM Physical Exam Const Vital Signs: 10/13/21 23:47 10/13/21 23:49 Temperature 97.8 F 97.8 F Temperature Source Temporal Temporal Pulse Rate 122 H 122 H Respiratory Rate 18 18 Blood Pressure 92/80 92/80 Blood Pressure Mean 84 84 Pulse Ox 100 100 Oxygen Delivery Method Room Air Room Air Positive well nourished and well developed General Appearance ED: well developed HEENT Reports moist mucous membranes Eyes PERRL and EOMs intact bilaterally Neck supple Resp normal respiratory effort and clear to auscultation bilaterally Cardio regular rhythm Rate: tachycardic and other Other Details: Radial pulses are +2-4 bilaterally are equal and symmetric GI non-distended GI Narrative: Abdomen is soft and nondistended with hyperactive bowel sounds. There is mild diffuse pain on palpation but no voluntary guarding or rigidity. No pulsatile mass Palpation: soft Extremity normal to inspection Extremity Narrative: Patient has a PICC line in place in the left upper arm without surrounding secondary changes to suggest infection Neuro oriented x3 and CN's II-XII intact bilaterally Sensorium / Orientation: alert Motor Exam: strength 5/5 throughout Psych Psych Narrative: Patient has a depressed/flat affect Skin no rashes or lesions noted MDM MDM MDM Narrative Medical decision making narrative: Patient presented to the ER afebrile with a soft nonsurgical abdomen. She reported a longstanding history of approximately 1 year of intermittent bouts of nausea and vomiting that only seem to improve with IV treatment. She states that the occurrence today does feel similar nature to these bouts of nausea and vomiting. Secondary to this history as well as the fact that her abdomen is soft and nonsurgical I do not feel there is a need for imaging study. She states she is thrown up multiple times throughout the day with poor oral intake and therefore I did elect to check basic laboratory studies. Patient's white count is only slightly up at 11.5 and there is no left shift reported. This coupled with the fact she is on IV antibiotics and does not have a fever goes against systemic infection at this time. He does not have severe electrolyte derangements or signs of acute kidney injury either. Patient was given IV fluids as well as Compazine and did have resolution of her vomiting. On reevaluation she is resting comfortably. Therefore at this time with labs showing no clinically significant findings and resolution of her symptoms I do not feel there is need for repeat admission or further work-up and patient can be discharged home Lab Data Attestation: I reviewed the patient's lab results. Labs: Laboratory Results - last 24 hr 10/14/21 10/14/21 00:02 00:02 WBC 11.5 H RBC 3.89 L Hgb 9.8 L Hct 29.7 L MCV 76.3 L MCH 25.2 L MCHC 33.0 RDW Std Deviation 43.8 RDW Coeff of Roz 16.2 H Plt Count 262 MPV 9.6 Immature Gran % (Auto) 0.300 Neut % (Auto) 77.0 H Lymph % (Auto) 14.0 L [place] % (Auto) 5.4 Eos % (Auto) 2.8 Baso % (Auto) 0.5 Absolute Neuts (auto) 8.8 H Absolute Lymphs (auto) 1.60 Nucleated RBC % 0 Sodium 140 Potassium 3.7 Chloride 109 H Carbon Dioxide 23.0 Anion Gap 8 BUN 12 Creatinine 0.94 Estim Creat Clear Calc 98.94 Est GFR (MDRD) Af Amer 96 Est GFR (MDRD) Non-Af 80 BUN/Creatinine Ratio 12.8 Glucose 119 H Calcium 8.8 Discharge Plan Triage Chief Complaint: Nausea/Vomiting ED Provider: Efraín Farley Dx/Rx/DC Orders Clinical Impression: Cyclical vomiting syndrome Instructions: ED Cyclic Vomiting Syndrome Prescriptions: No Action acetaminophen [Tylenol] 325 mg Tablet 650 mg PO Q4H PRN PRN (Reason: Fever, pain 1-06/16) Qty: 0 RF: 0 famotidine 20 mg Tablet 20 mg PO BID 30 Days Qty: 60 RF: 0 ondansetron 4 mg tablet,disintegrating 4 mg PO Q6H PRN (Reason: nausea and vomiting) Qty: 10 RF: 0 sennosides-docusate sodium [Senna-S] 8.6-50 mg tablet 1 tab-cap PO QHS Qty: 30 RF: 0 polyethylene glycol 3350 [Miralax] 17 gram/dose powder 17 g PO BID Qty: 238 RF: 0 sertraline [Zoloft] 50 mg Tablet 50 mg PO DAILY RF: 0 haloperidol 2 mg tablet 2 mg PO Q8H PRN (Reason: nausea and vomiting) Qty: 20 RF: 0 olanzapine 5 mg tablet RF: 0 olanzapine 5 mg tablet RF: 0 mirtazapine 15 mg tablet RF: 0 Primary Care Provider: Care Physician,No Primary Referrals: Rodolfo Reid MD [STAFF PHYSICIAN] - 3-5 Days if not improving Care Physician,No Primary [Primary Care Provider] - Disposition Disposition: Home, Self Care
[2021-10-14 02:07] VITALS: BP 153/88; PULSE 88; RESP 16; O2SAT 98
== END 2021-10-14 02:08 | disposition home or self-care (01) ==
PROVIDERS: Emergency Provider Emergency Medicine; Visit Provider Emergency Medicine
DX: R11.15 Cyclical vomiting syndrome unrelated to migraine (principal); F32.A Depression, unspecified; I10 Essential (primary) hypertension; Z79.899 Other long term (current) drug therapy; Z85.42 Personal history of malignant neoplasm of other parts of uterus
CPT/HCPCS: 36592; 80048; 85025; 96361; 96374; 96375; 99282; J7030; A4216

== ENCOUNTER 2021-10-14 14:32 | Outpatient (CLI) | payer MEDICAID, SELFPAY ==
[2021-10-14 15:23] LABS: Absolute Lymphocyte Count 1.38 X10^3/uL (0.83-4.51); Absolute Neutrophil Count 3.2 X10^3/uL (2.0-7.7); Basophil# 0.05 X10^3/uL; Basophil% 0.9 % (0-1); Eosinophil# 0.28 X10^3/uL; Eosinophils% 5.1 % (0-5); Hematocrit 27.7 % (37-47); Hemoglobin 8.3 g/dL (12.0-15.0); Lymphocyte # 1.38 X10^3/ul (0.83-4.51); Lymphocyte % 25.3 % (19-41); Mean Corpuscular Hgb 24.3 pg (27.0-32.0); Mean Platelet Vol. 9.7 fl (6.2-12.0); Monocyte# 0.52 X10^3/uL; Monocyte% 9.5 % (0-10); NRBC Flagged by Analyzer 0 % (0-5); Neutrophil # 3.21 X10^3/uL (2.7-7.7); Neutrophil % 58.8 % (47-70); Platelet Count 201 K/mm3 (150-450); RBC Distribution Width CV 16.5 % (11.6-14.6); RBC Distribution Width SD 48.4 fl (35.1-43.9); Red Blood Count 3.42 M/mm3 (4.2-5.4); White Blood Count 5.5 K/mm3 (4.4-11.0)
[2021-10-14 15:38] LABS: ALB/GLOB Ratio 1.1 RATIO (0.9-2.4); AST(SGOT) 11 U/L (15-37); Alanine Aminotransfer ALT/SGPT 18 U/L (13-56); Alkaline Phosphatase 46 U/L (45-117); Anion Gap 3 (5-15); BUN 8 mg/dL (7-18); Calcium,Total 8.3 mg/dL (8.5-10.1); Chloride 110 mmol/L (98-107); Creatinine, Serum 1.14 mg/dL (0.55-1.02); EST Glomerular Filtration Rate 64 mL/min (>60); Est Glom Filt Rate - Afr Amer 77 mL/min (>60); Globulin 2.7 g/dL (2.2-4.2); Glucose 99 mg/dL (74-106); Potassium 3.7 mmol/L (3.5-5.1); Protein, Total 5.7 g/dL (6.4-8.2); Sodium Level 142 mmol/L (136-145)
== END 2021-10-14 23:59 | disposition home or self-care (01) ==
LOC: LABSPEC 14:34
PROVIDERS: Visit Provider Internal Medicine Infectious Disease
DX: Z45.2 Encounter for adjustment and management of vascular access device (principal)
CPT/HCPCS: 80053; 85025

== ENCOUNTER 2021-12-10 15:50 | Emergency (ER) | payer MEDICAID, SELFPAY ==
[2021-12-10 15:51] VITALS: BP 119/97; PULSE 110; RESP 20; TEMP 36.9; O2SAT 96; BMI 25.8
--- NOTE | 2021-12-10 16:22 | EDS_ITS ---
HPI History of Present Illness Chief Complaint: Flank Pain Informant: patient Onset/Context/Timing Onset: Today Context: Sudden Onset Current Severity: Moderate Maximum Severity: Moderate Narrative Narrative: Patient presents with 20-minute history of sudden onset left flank pain. She has a history of ureteral injury during prior hysterectomy. She has had ureteral stents in the past but does not have any stents currently. She did undergo reimplantation of her ureters. Patient states pain today feels like same symptoms she had when her left kidney got blocked previously. No nausea or vomiting. No dysuria. PFSH PFS Medical History Alcohol abuse Cancer Depression Endometrial cancer Hydronephrosis Hypertension Menorrhagia Non-smoker Retained ureteral stent Ureter injury Ureteral stricture, left Home Medications acetaminophen [Tylenol] 650 mg PO Q4H PRN PRN #0 tab 07/12/21 [Rx Last Taken Unknown] famotidine 20 mg PO BID 30 Days #60 tab 07/12/21 [Rx Last Taken Unknown] ondansetron 4 mg PO Q6H PRN #10 tab 07/18/21 [Rx Last Taken Unknown] polyethylene glycol 3350 [Miralax] 17 g PO BID #238 g 07/21/21 [Rx Last Taken Unknown] sennosides-docusate sodium [Senna-S] 1 tab-cap PO QHS #30 tab 07/21/21 [Rx Last Taken Unknown] haloperidol 2 mg PO Q8H PRN #20 tab 09/30/21 [Rx Last Taken Unknown] sertraline [Zoloft] 50 mg PO DAILY 09/30/21 [History Last Taken Unknown] mirtazapine mg 10/14/21 [History Last Taken Unknown] olanzapine mg 10/14/21 [History Last Taken Unknown] olanzapine mg 10/14/21 [History Last Taken Unknown] hydrocodone-acetaminophen 1 tab PO Q6H PRN 3 Days #10 tab 12/10/21 [Rx Last Taken Unknown] ondansetron 4 mg PO Q8H PRN #10 tab 12/10/21 [Rx Last Taken Unknown] sulfamethoxazole-trimethoprim [Bactrim DS] 1 tab PO BID #20 tab 12/10/21 [Rx Last Taken Unknown] Allergy/AdvReac Type Severity Reaction Status Date / Time ceftriaxone [From Rocephin] Allergy Hives Verified 12/10/21 15:51 promethazine [From Phenergan] Allergy Vomiting Verified 12/10/21 15:51 Ringer's solution,lactated Allergy Hives Verified 12/10/21 15:51 Family History Father No problems noted. Mother No problems noted. Surgical History History of hysterectomy for cancer History of renal stent Social History household members: family Smoking Status: Never smoker alcohol intake: former substance use type: does not use ROS ROS ED Constitutional Constitutional ED: Denies chills or fever(s) Eyes Eyes: Denies change in vision ENT ENT ED: Denies sore throat Cardiovascular Cardiovascular: Denies chest pain Respiratory/Chest Respiratory/Chest: Denies cough or dyspnea Gastrointestinal Gastrointestinal: Reports abdominal pain; Denies diarrhea, nausea or vomiting Genitourinary Genitourinary ED: Denies dysuria or hematuria Musculoskeletal Musculoskeletal: Reports back pain Integumentary Denies rash Neurologic Neurologic: Denies headache(s) or weakness Allergic/Immunologic Allergic/Immunologic ED: Denies urticaria EXAM Physical Exam Const Vital Signs: 12/10/21 15:51 12/10/21 17:35 Temperature 98.5 F Temperature Source Temporal Pulse Rate 110 H Respiratory Rate 20 H Blood Pressure 119/97 H 124/89 H Blood Pressure Mean 104 100 Pulse Ox 96 96 Oxygen Delivery Method Room Air Room Air Positive well nourished and well developed General Appearance ED: well developed HEENT Reports moist mucous membranes Eyes PERRL and EOMs intact bilaterally Neck supple Chest Wall inspection of chest normal and palpation of chest normal Resp normal respiratory effort and clear to auscultation bilaterally Cardio regular rate and regular rhythm GI Palpation: soft and tender LLQ Back/Spine General Back: CVA tenderness left Extremity normal to inspection Neuro oriented x3 Sensorium / Orientation: alert Psych mental status grossly normal Skin no rashes or lesions noted MDM MDM MDM Narrative Medical decision making narrative: Patient given morphine and Zofran for pain. Given IV fluids. Lab work, urinalysis, CT flank obtained. Lab Data Attestation: I reviewed the patient's lab results. Labs: Laboratory Results - last 24 hr 12/10/21 12/10/21 12/10/21 16:20 16:20 17:35 WBC 10.0 RBC 4.36 Hgb 10.3 L Hct 34.0 L MCV 78.0 L MCH 23.6 L MCHC 30.3 L RDW Std Deviation 48.3 H RDW Coeff of Roz 17.1 H Plt Count 306 MPV 8.8 Immature Gran % (Auto) 0.200 Neut % (Auto) 77.6 H Lymph % (Auto) 14.[address] [place] % (Auto) 5.1 Eos % (Auto) 2.4 Baso % (Auto) 0.3 Absolute Neuts (auto) 7.7 Absolute Lymphs (auto) 1.43 Nucleated RBC % 0 Sodium 138 Potassium 3.7 Chloride 109 H Carbon Dioxide 24.0 Anion Gap 5 BUN 8 Creatinine 0.70 Estim Creat Clear Calc 132.86 Est GFR (MDRD) Af Amer 134 Est GFR (MDRD) Non-Af 111 BUN/Creatinine Ratio 11.4 Glucose 92 Calcium 9.3 Urine Color Yellow Urine Clarity Sl. Cloudy Urine pH 6.5 Ur Specific [place] 1.015 Urine Protein 100 H Urine Glucose (UA) Normal Urine Ketones Negative Urine Occult Blood 250 H Urine Nitrite Positive H Urine Bilirubin Negative Urine Urobilinogen Normal Ur Leukocyte Esterase 500 H Urine RBC 10-25 SEEN Urine WBC 25-50 SEEN Ur Squamous Epith Cells 0 SEEN Urine Bacteria 2+ Urine Mucus 0 SEEN Radiography Diagnostic Testing: Clinical Impression(s) from Imaging Studies Abdomen/Pelvis CT 12/10/21 16:48 IMPRESSION: Left-sided hydronephrosis and hydroureter. There is no stone identified. Left ureteral stent seen on a previous study has been removed. The obstruction may possibly due to edema from removal of the ureteral stent. There is a small amount of gas in the bladder likely from prior instrumentation. Individualized dose optimization techniques were used for this CT. at 1713 Reported and signed by: Trenton Shelley MD Electronically Signed: Trenton Shelley MD at 17:11 EDT , Treatment and Re-Evaluation Narrative: CBC and chemistry studies unremarkable. Urinalysis does show infection with positive nitrites, 25-50 white cells, 2+ bacteria. CT flank does reveal left-sided hydronephrosis and hydroureter. No stone identified. I spoke with the patient's urologist, Dr. Barahona in [place]. We will treat the patient with antibiotics and pain medication. She is to follow-up as an outpatient. Patient voices understanding and agreement. Discharge Plan Triage Chief Complaint: Flank Pain ED Provider: Patience Steiner Dx/Rx/DC Orders Clinical Impression: Pyelonephritis Instructions: ED Pyelonephritis, Female (Adult) Prescriptions: New hydrocodone-acetaminophen 5-325 mg tablet 1 tab PO Q6H PRN (Reason: pain) 3 Days Qty: 10 RF: 0 ondansetron 4 mg tablet,disintegrating 4 mg PO Q8H PRN (Reason: nausea and vomiting) Qty: 10 RF: 0 sulfamethoxazole-trimethoprim [Bactrim DS] 800-160 mg tablet 1 tab PO BID Qty: 20 RF: 0 No Action acetaminophen [Tylenol] 325 mg Tablet 650 mg PO Q4H PRN PRN (Reason: Fever, pain -06/16) Qty: 0 RF: 0 famotidine 20 mg Tablet 20 mg PO BID 30 Days Qty: 60 RF: 0 ondansetron 4 mg tablet,disintegrating 4 mg PO Q6H PRN (Reason: nausea and vomiting) Qty: 10 RF: 0 sennosides-docusate sodium [Senna-S] 8.6-50 mg tablet 1 tab-cap PO QHS Qty: 30 RF: 0 polyethylene glycol 3350 [Miralax] 17 gram/dose powder 17 g PO BID Qty: 238 RF: 0 sertraline [Zoloft] 50 mg Tablet 50 mg PO DAILY RF: 0 haloperidol 2 mg tablet 2 mg PO Q8H PRN (Reason: nausea and vomiting) Qty: 20 RF: 0 olanzapine 5 mg tablet RF: 0 olanzapine 5 mg tablet RF: 0 mirtazapine 15 mg tablet RF: 0 Referrals: HA,INDJESSAEL [Other] Activity Restrictions/Additional Instructions: Follow-up with Dr. Barahona within the next 1 to 2 weeks. Disposition Disposition: Home, Self Care
[2021-12-10] MEDS: Ketorolac 30 MG/ML Syringe IV (16:32)
[2021-12-10] MEDS: Ondansetron 4 MG/2 ML Vial IV ×2 (16:32→18:40)
[2021-12-10] MEDS: Morphine 4 MG/ML Syringe IV ×2 (16:33→18:37)
[2021-12-10 16:42] LABS: Absolute Lymphocyte Count 1.43 X10^3/uL (0.83-4.51); Absolute Neutrophil Count 7.7 X10^3/uL (2.0-7.7); Basophil# 0.03 X10^3/uL; Basophil% 0.3 % (0-1); Eosinophil# 0.24 X10^3/uL; Eosinophils% 2.4 % (0-5); Hemoglobin 10.3 g/dL (12.0-15.0); Lymphocyte # 1.43 X10^3/ul (0.83-4.51); Lymphocyte % 14.4 % (19-41); Mean Corp Hgb Conc 30.3 g/dL (32-36); Mean Corpuscular Hgb 23.6 pg (27.0-32.0); Mean Platelet Vol. 8.8 fl (6.2-12.0); Monocyte# 0.51 X10^3/uL; Monocyte% 5.1 % (0-10); NRBC Flagged by Analyzer 0 % (0-5); Neutrophil # 7.72 X10^3/uL (2.7-7.7); Neutrophil % 77.6 % (47-70); Platelet Count 306 K/mm3 (150-450); RBC Distribution Width CV 17.1 % (11.6-14.6); RBC Distribution Width SD 48.3 fl (35.1-43.9); Red Blood Count 4.36 M/mm3 (4.2-5.4)
[2021-12-10 16:45] LABS: Anion Gap 5 (5-15); BUN 8 mg/dL (7-18); BUN/Creat Ratio 11.4 RATIO (10-20); Calcium,Total 9.3 mg/dL (8.5-10.1); Chloride 109 mmol/L (98-107); EST Glomerular Filtration Rate 111 mL/min (>60); Est Glom Filt Rate - Afr Amer 134 mL/min (>60); Estimated Creatinine Clearance 132.86 ml/min; Glucose 92 mg/dL (74-106); Potassium 3.7 mmol/L (3.5-5.1); Sodium Level 138 mmol/L (136-145)
--- NOTE | 2021-12-10 16:48 | CT_ITS ---
EXAM: CT ABDOMEN AND PELVIS WITHOUT INTRAVENOUS CONTRAST : 2000 CLINICAL INDICATION: left flank pain TECHNIQUE: Helically acquired images were obtained of the abdomen and pelvis without intravenous contrast. This CT exam was performed using one or more of the following dose reduction techniques: automated exposure control, adjustment of the mA and/or kV according to patient size, and/or use of iterative reconstruction technique. This report was created using [employer] report generation technology. COMPARISON: 09/30/2021 FINDINGS: LOWER THORAX: Unremarkable. Lung bases are clear. No cardiomegaly. No significant pericardial effusion. ABDOMEN: LIVER: Unremarkable. Homogeneous. GALLBLADDER AND BILE DUCTS: Unremarkable. No calcified gallstones. No gallbladder distention or wall edema. No intra- or extrahepatic biliary ductal dilation. PANCREAS: Unremarkable. No focal cystic mass. SPLEEN: Unremarkable. Normal size without focal cystic or solid mass. ADRENALS: Unremarkable. No nodules. KIDNEYS AND URETERS: There is left-sided hydronephrosis and hydroureter. Normal renal size and position. STOMACH AND BOWEL: Unremarkable. No stomach or bowel distention. No focal inflammatory change. PELVIS: APPENDIX: No evidence of acute appendicitis. BLADDER: A left ureteral stent has been removed since the reference exam. There is no obstructing stone identified. There is a trace amount of gas seen within the urinary bladder [place]. REPRODUCTIVE: Unremarkable as visualized. No mass. ABDOMEN and PELVIS: INTRAPERITONEAL SPACE: Unremarkable. No ascites or other fluid collection. No free air. BONES/JOINTS: Unremarkable. No suspicious lytic or blastic abnormality. SOFT TISSUES: Unremarkable. No discrete abdominal or pelvic wall hernia. VASCULATURE: Unremarkable. Abdominal aorta is non-dilated. LYMPH NODES: Unremarkable. No enlarged lymph nodes. CT/Abdomen/Pelvis without Cont IMPRESSION: Left-sided hydronephrosis and hydroureter. There is no stone identified. Left ureteral stent seen on a previous study has been removed. The obstruction may possibly due to edema from removal of the ureteral stent. There is a small amount of gas in the bladder likely from prior instrumentation. Individualized dose optimization techniques were used for this CT. at 1713 Reported and signed by: Trenton Shelley MD Electronically Signed: Trenton Shelley MD at 17:11 EDT ,
[2021-12-10] MEDS: 0.9% Normal Saline 1,000 ML 150 ML IV (16:55)
[2021-12-10 17:35] VITALS: BP 124/89; O2SAT 96
[2021-12-10 17:42] LABS: Mucous, Urine 0 SEEN /hpf (<or=2+); Squamous Epithelial Cells - UA 0 SEEN /hpf (5-10)
[2021-12-10 17:52] LABS: Color, Urine Yellow (Yellow); Glucose, Dipstick Normal (Normal); Ketone-Dipstick Negative (Negative); Leukocyte Esterase-Dipstick 500 /ul (Negative); Nitrite-Dipstick Positive (Negative); Occult Blood-Urine 250 /ul (Negative); Protein-Dipstick 100 mg/dl (Negative); Specific Gravity, Urine 1.015 (1.002-1.030); Urine Bilirubin Dipstick Negative (Negative); Urine Clarity Sl. Cloudy (Clear); Urine Urobilinogen Normal (Normal); Urine pH 6.5 (5.0 - 8.0)
[2021-12-10 17:59] LABS: White Blood Cells 25-50 SEEN /hpf (0-5)
[2021-12-10 18:01] LABS: Bacteria 2+ /hpf (None Seen)
[2021-12-10 18:02] LABS: Red Blood Cells-Urine 10-25 SEEN /hpf (0-5)
[2021-12-10] MEDS: Smz/Tmp Ds Tablet 1 TABLET PO (18:37)
[2021-12-10 19:11] VITALS: RESP 16
== END 2021-12-10 19:30 | disposition home or self-care (01) ==
PROVIDERS: Emergency Provider Emergency Medicine; Visit Provider Emergency Medicine
DX: N12 Tubulo-interstitial nephritis, not specified as acute or chronic (principal); I10 Essential (primary) hypertension; Z85.42 Personal history of malignant neoplasm of other parts of uterus; Z79.899 Other long term (current) drug therapy; Z90.710 Acquired absence of both cervix and uterus; N13.30 Unspecified hydronephrosis
CPT/HCPCS: 74176; 80048; 81001; 85025; 87077; 87086; 87088; 87186; 96361; 96374; 96375; 96376; 99283; J7030; A4216; J2405

== ENCOUNTER 2021-12-21 22:22 | Emergency (ER) | payer MEDICAID, SELFPAY ==
[2021-12-21 22:23] VITALS: BP 128/88; PULSE 96; RESP 18; TEMP 36.5; O2SAT 100; BMI 25.8
--- NOTE | 2021-12-21 22:42 | EX.ED.VIS.HA ---
HPI History of Present Illness Chief Complaint: Headache Informant: patient and parent Onset/Context/Timing Onset: Weeks (1) Context: Sudden Timing: Continuous Quality -Headache: Positive for Sharp Location: Frontal Worsened by: Light Relieved by: Nothing Associated Symptoms/Injury Associated Symptoms: Positive for Nausea, Vomiting, Sinus Pressure, Preceding Aura, Visual Changes, Blurred Vision and Photophobia; Negative for Fever, Sore Throat, Numbness, Tingling and Visual Loss Narrative Narrative: Patient presents with a headache that has been getting worse over the past week. Patient states the pain is sharp. Patient states the pain is over the frontal area. Patient states it is worse with light. Patient denies any history of migraine headaches. Patient admits to some nausea and vomiting. Patient also admits to some sinus pressure. Patient admits to some blurry vision and preceding aura. Patient states she is recently being treated for urinary tract infection. Patient also admits to some dizziness. Patient describes this as a lightheaded feeling. [facility] Medical History Alcohol abuse Cancer Depression Endometrial cancer Hydronephrosis Hypertension Menorrhagia Non-smoker Retained ureteral stent Ureter injury Ureteral stricture, left Home Medications acetaminophen [Tylenol] 650 mg PO Q4H PRN PRN #0 tab 07/12/21 [Rx Last Taken Unknown] famotidine 20 mg PO BID 30 Days #60 tab 07/12/21 [Rx Last Taken Unknown] ondansetron 4 mg PO Q6H PRN #10 tab 07/18/21 [Rx Last Taken Unknown] polyethylene glycol 3350 [Miralax] 17 g PO BID #238 g 07/21/21 [Rx Last Taken Unknown] sennosides-docusate sodium [Senna-S] 1 tab-cap PO QHS #30 tab 07/21/21 [Rx Last Taken Unknown] haloperidol 2 mg PO Q8H PRN #20 tab 09/30/21 [Rx Last Taken Unknown] sertraline [Zoloft] 50 mg PO DAILY 09/30/21 [History Last Taken Unknown] mirtazapine mg 10/14/21 [History Last Taken Unknown] olanzapine mg 10/14/21 [History Last Taken Unknown] olanzapine mg 10/14/21 [History Last Taken Unknown] hydrocodone-acetaminophen 1 tab PO Q6H PRN 3 Days #10 tab 12/10/21 [Rx Last Taken Unknown] ondansetron 4 mg PO Q8H PRN #10 tab 12/10/21 [Rx Last Taken Unknown] sulfamethoxazole-trimethoprim [Bactrim DS] 1 tab PO BID #20 tab 12/10/21 [Rx Last Taken Unknown] Allergy/AdvReac Type Severity Reaction Status Date / Time ceftriaxone [From Rocephin] Allergy Hives Verified 12/21/21 22:25 promethazine [From Phenergan] Allergy Vomiting Verified 12/21/21 22:25 Ringer's solution,lactated Allergy Hives Verified 12/21/21 22:25 Family History Father No problems noted. Mother No problems noted. Surgical History History of hysterectomy for cancer History of renal stent Social History household members: family Smoking Status: Never smoker alcohol intake: former substance use type: does not use ROS ROS ED Constitutional Constitutional ED: Denies chills or fever(s) Eyes Eyes: Denies blurry vision or change in vision ENT ENT ED: Reports rhinorrhea; Denies sore throat Cardiovascular Cardiovascular: Denies chest pain or palpitations Respiratory/Chest Respiratory/Chest: Denies cough or dyspnea Gastrointestinal Gastrointestinal: Reports nausea and vomiting Genitourinary Genitourinary ED: Denies dysuria or hematuria Musculoskeletal Musculoskeletal: Reports back pain and neck pain Integumentary Denies abscess or rash Neurologic Neurologic: Reports headache(s); Denies weakness Allergic/Immunologic Allergic/Immunologic ED: Denies mouth swelling or urticaria EXAM Physical Exam Const Vital Signs: 12/21/21 22:23 Temperature 97.7 F L Temperature Source Temporal Pulse Rate 96 Respiratory Rate 18 Blood Pressure 128/88 H Blood Pressure Mean 101 Pulse Ox 100 Oxygen Delivery Method Room Air Positive well nourished, well developed and unkempt General Appearance ED: unkempt, well developed and NAD HEENT Reports moist mucous membranes Neck supple and no JVD Resp normal respiratory effort and clear to auscultation bilaterally Cardio regular rate and regular rhythm GI non-tender Palpation: soft Neuro oriented x3, CN's II-XII intact bilaterally and no sensory deficits noted Sensorium / Orientation: awake and alert Speech: speech normal Motor Exam: strength 5/5 throughout Psych mental status grossly normal Appearance: unkempt MDM MDM MDM Narrative Medical decision making narrative: She was given IV fluids, Reglan, and Benadryl. CT scan of the brain was obtained. There is mucosal thickening in the right maxillary sinus. There is no acute intracranial abnormality. This was interpreted by the radiologist and reviewed by myself. Patient was advised of her findings. Patient was instructed to drink plenty of fluids. Patient was instructed to rest in a dark quiet room. Patient was instructed to take [id number] decongestants as needed. Patient was instructed to follow-up with her primary care physician in 3 to 5 days. Patient understood and was agreeable with the plan. All questions were answered. Radiography Diagnostic Testing: Clinical Impression(s) from Imaging Studies Brain CT 12/21/21 22:48 IMPRESSION: 1. No acute intracranial abnormality. 2. Diffuse mucosal thickening in the right maxillary sinus. Electronically Signed: Amado Lu MD at 23:31 EDT , Discharge Plan Triage Chief Complaint: Headache ED Provider: Josué Reinoso Dx/Rx/DC Orders Clinical Impression: Headache Instructions: ED Headache Unspecified Prescriptions: No Action acetaminophen [Tylenol] 325 mg Tablet 650 mg PO Q4H PRN PRN (Reason: Fever, pain 1-06/16) Qty: 0 RF: 0 famotidine 20 mg Tablet 20 mg PO BID 30 Days Qty: 60 RF: 0 ondansetron 4 mg tablet,disintegrating 4 mg PO Q6H PRN (Reason: nausea and vomiting) Qty: 10 RF: 0 sennosides-docusate sodium [Senna-S] 8.6-50 mg tablet 1 tab-cap PO QHS Qty: 30 RF: 0 polyethylene glycol 3350 [Miralax] 17 gram/dose powder 17 g PO BID Qty: 238 RF: 0 sertraline [Zoloft] 50 mg Tablet 50 mg PO DAILY RF: 0 haloperidol 2 mg tablet 2 mg PO Q8H PRN (Reason: nausea and vomiting) Qty: 20 RF: 0 olanzapine 5 mg tablet RF: 0 olanzapine 5 mg tablet RF: 0 mirtazapine 15 mg tablet RF: 0 hydrocodone-acetaminophen 5-325 mg tablet 1 tab PO Q6H PRN (Reason: pain) 3 Days Qty: 10 RF: 0 ondansetron 4 mg tablet,disintegrating 4 mg PO Q8H PRN (Reason: nausea and vomiting) Qty: 10 RF: 0 sulfamethoxazole-trimethoprim [Bactrim DS] 800-160 mg tablet 1 tab PO BID Qty: 20 RF: 0 Referrals: HA,EDWIGE [Other] - 3-5 Days Disposition Disposition: Home, Self Care
--- NOTE | 2021-12-21 22:48 | CT_ITS ---
EXAM: CT HEAD WITHOUT INTRAVENOUS CONTRAST CLINICAL INDICATION: Pain TECHNIQUE: Multiple axial images were obtained of the head without intravenous contrast. This CT exam was performed using one or more of the following dose reduction techniques: automated exposure control, adjustment of the mA and/or kV according to patient size, and/or use of iterative reconstruction technique. This report was created using [employer] report generation technology. RADIATION DOSE: CTDIvol = 44.99 mGy, DLP = 745.49 mGy-cm. COMPARISON: None. FINDINGS: BRAIN AND EXTRA-AXIAL SPACES: Unremarkable. No intra- or extra-axial hemorrhage. No evidence of acute infarct. No intracranial mass or mass effect. There is preservation of the smith/white matter interface. Posterior fossa structures are unremarkable. Ventricles are appropriate for age. No hydrocephalus. Basal cisterns are patent. BONES/JOINTS: Unremarkable. No discrete lytic or blastic abnormalities. SINUSES: Diffuse mucosal thickening in the right maxillary sinus. MASTOID AIR CELLS: Unremarkable. Clear. ORBITS: Visualized globes, extraocular muscles, optic nerves and retrobulbar fat appear unremarkable. CT/Brain/Head without Contrast IMPRESSION: 1. No acute intracranial abnormality. 2. Diffuse mucosal thickening in the right maxillary sinus. Electronically Signed: Amado Lu MD at 23:31 EDT ,
[2021-12-21] MEDS: DiphenhydrAMINE 50 MG/ML Syringe 25 MG IV (23:29)
[2021-12-21] MEDS: 0.9% Normal Saline 1,000 ML 999 ML IV (23:29)
[2021-12-21] MEDS: Metoclopramide 10 MG/2 ML Vial IV (23:30)
== END 2021-12-22 01:18 | disposition home or self-care (01) ==
PROVIDERS: Emergency Provider Emergency Medicine; Visit Provider Emergency Medicine
DX: R51.9 Headache, unspecified (principal); R11.2 Nausea with vomiting, unspecified; I10 Essential (primary) hypertension; F32.A Depression, unspecified; Z85.42 Personal history of malignant neoplasm of other parts of uterus; Z79.899 Other long term (current) drug therapy; N39.0 Urinary tract infection, site not specified
CPT/HCPCS: 70450; 96361; 96374; 96375; 99284; J7030; A4216

== ENCOUNTER 2022-10-08 19:08 | Emergency (ER) | payer MEDICAID, SELFPAY ==
[2022-10-08 19:09] VITALS: BP 133/101; PULSE 98; RESP 18; TEMP 36.3; O2SAT 93; BMI 30.8
--- NOTE | 2022-10-08 21:47 | EDS_ITS ---
HPI History of Present Illness Chief Complaint: Dental Detail of Chief Complaint: Dental pain x1 week Informant: patient and family Onset/Context/Timing Onset: Weeks Context: Sudden Onset Timing: Continuous and Waxes and wanes Quality: Pain Location: Upper and lower left molar Current Severity: Mild Worsened by: Cold and hot liquids Relieved by: NSAIDs and Topicals Associated Symptoms Assocated Symptom - Dental: cold sensitivity and hot sensitivity; Negative for fever, jaw swelling or face swelling Narrative Narrative: Patient is a 22-year-old female who presents with dental pain. She states she called [facility]. She was told there would be a 2-month wait. She reported chills. She denies fever. She denies a traumatic fever, heart murmur, SBE, IV drug use or being immune suppressed. She does list allergy to third- generation cephalosporin with hives. She denies myalgias, arthralgias or joint swelling. She denies rash. She reports change in voice. She also reports she cannot open her mouth completely. There is been no drooling. Prior similar symptoms: Yes Recent Illness/Hospitalization: No PFSH PFS Medical History Alcohol abuse Cancer Depression Endometrial cancer Hydronephrosis Hypertension Menorrhagia Non-smoker Retained ureteral stent Ureter injury Ureteral stricture, left Home Medications acetaminophen 325 mg tablet (Tylenol) 650 mg PO Q4H PRN PRN Fever, pain 1-06/16 #0 tabs 07/12/21 [Rx Last Taken Unknown] famotidine 20 mg tablet 20 mg PO BID 30 days #60 tabs 07/12/21 [Rx Last Taken Unknown] ondansetron 4 mg disintegrating tablet 4 mg PO Q6H PRN nausea and vomiting #10 tabs 07/18/21 [Rx Last Taken Unknown] polyethylene glycol 3350 17 gram/dose oral powder (Miralax) 17 g PO BID #238 grams 07/21/21 [Rx Last Taken Unknown] sennosides 8.6 mg-docusate sodium 50 mg tablet (Senna-S) 1 tab-cap PO QHS #30 tabs 07/21/21 [Rx Last Taken Unknown] haloperidol 2 mg tablet 2 mg PO Q8H PRN nausea and vomiting #20 tabs 09/30/21 [Rx Last Taken Unknown] sertraline 50 mg tablet (Zoloft) 50 mg PO DAILY 09/30/21 [History Last Taken Unknown] mirtazapine 15 mg tablet mg 10/14/21 [History Last Taken Unknown] olanzapine 5 mg tablet mg 10/14/21 [History Last Taken Unknown] olanzapine 5 mg tablet mg 10/14/21 [History Last Taken Unknown] hydrocodone-acetaminophen 5-325mg 5mg-325mg 1 tab PO Q6H PRN pain 3 days #10 tabs 12/10/21 [Rx Last Taken Unknown] ondansetron 4 mg disintegrating tablet 4 mg PO Q8H PRN nausea and vomiting #10 tabs 12/10/21 [Rx Last Taken Unknown] sulfamethoxazole 800 mg-trimethoprim 160 mg tablet (Bactrim DS) 1 tab PO BID #20 tabs 12/10/21 [Rx Last Taken Unknown] clindamycin HCl 300 mg capsule (Cleocin HCl) 300 mg PO Q6H #28 CAPSULES 10/08/22 [Rx Last Taken Unknown] hydrocodone-acetaminophen 5-325mg 5mg-325mg 1 tab PO Q6H PRN PRN Pain 3 days #10 TABLETS 10/08/22 [Rx Last Taken Unknown] naproxen 500 mg tablet 500 mg PO BID #14 tabs 10/08/22 [Rx Last Taken Unknown] Allergy/AdvReac Type Severity Reaction Status Date / Time ceftriaxone [From Rocephin] Allergy Hives Verified 10/08/22 19:09 promethazine [From Phenergan] Allergy Vomiting Verified 10/08/22 19:09 Ringer's solution,lactated Allergy Hives Verified 10/08/22 19:09 Family History Father No problems noted. Mother No problems noted. Surgical History History of hysterectomy for cancer History of renal stent Social History household members: family Smoking Status: Never smoker alcohol intake: former substance use type: does not use ROS ROS ED Constitutional Constitutional ED: Reports chills; Denies fever(s), subjective, sweats or weight loss Eyes Eyes: Denies blurry vision or change in vision ENT ENT ED: Reports other Details: Poor dentition and dental pain and HPI ; Denies ear pain, rhinorrhea or sore throat Cardiovascular Cardiovascular: Denies chest pain or palpitations Respiratory/Chest Respiratory/Chest: Denies cough, dyspnea or dyspnea on exertion Gastrointestinal Gastrointestinal: Denies nausea or vomiting Musculoskeletal Musculoskeletal: Denies arthralgias, back pain, myalgias or neck pain Hematologic/Lymphatic Hematologic/Lymphatic: Denies easy bleeding or easy bruising EXAM Physical Exam Const Vital Signs: 10/08/22 19:09 Temperature 97.4 F L Temperature Source Temporal Pulse Rate 98 Respiratory Rate 18 Blood Pressure 133/101 H Blood Pressure Mean 111 Pulse Ox 93 Oxygen Delivery Method Room Air Positive well nourished, well developed and obese Constitutional Narrative: Patient is holding a pack of ice to the left side of her jaw. General Appearance ED: well developed; Negative for NAD Nutritional Appearance: obese HEENT HEENT Narrative: There is no evidence of facial cellulitis. There is no facial swelling. There is no trismus. Uvula is midline. Posterior pharynx unremarkable. Patient has poor dentition with dental caries numerous teeth and discoloration. There is no TMJ tenderness. There is no preauricular lymphadenopathy. Lips appear normal. There is no gum swelling. Eyes PERRL and EOMs intact bilaterally General Eye ED: Negative for pale conjunctiva or scleral icterus Neck no lymphadenopathy, supple and no JVD Neck Narrative: Trachea is midline. There is no inspiratory expiratory stridor. General: tenderness; Negative for normal visual inspection, anterior neck swelling or submandibular swelling Chest Wall inspection of chest normal and palpation of chest normal Resp normal respiratory effort, no retractions and clear to auscultation bilaterally Cardio regular rate, regular rhythm, S1 normal heart sound and S2 normal heart sound Neuro oriented x3, CN's II-XII intact bilaterally, moves all extremities, no focal motor deficits and no sensory deficits noted Sensorium / Orientation: alert Psych mental status grossly normal Skin no rashes or lesions noted and no wounds MDM MDM MDM Narrative Medical decision making narrative: Patient history is consistent with both reversible and irreversible pulpitis. She has significant dental pathology. There is no periodontal abscess that is amenable to I&D. There is no clinical findings of SBE i.e. splinter hemorrhages, [place]ay lesions heart murmur that is new. In light of patient's allergies she was cleared treated with Naprosyn, hydrocodone and clindamycin. Patient was given dental sheet. Since patient does not have a fever. There is no evidence of cellulitis laboratory studies were not obtained. Review of prior records reveals patient has not been seen in the past for dental pain and has been seen for obstructing ureterolithiasis, abnormal vaginal bleeding. Discharge Plan Triage Chief Complaint: Dental Other Complaint: Headache ED Provider: Jamey Henriquez Dx/Rx/DC Orders Clinical Impression: Abscess, apical, Symptomatic irreversible pulpitis, Symptomatic reversible pulpitis, Dental caries extending into dentine, Gingival and periodontal disease Instructions: ED Tooth Abscess Prescriptions: New hydrocodone-acetaminophen [hydrocodone-acetaminophen] 5-325 mg tablet 1 tab PO Q6H PRN PRN (Reason: Pain) 3 Days Qty: 10 0RF clindamycin HCl [Cleocin HCl] 300 mg capsule 300 mg PO Q6H Qty: 28 0RF naproxen 500 mg tablet 500 mg PO BID Qty: 14 0RF No Action acetaminophen [Tylenol] 325 mg Tablet 650 mg PO Q4H PRN PRN (Reason: Fever, pain -06/16) Qty: 0 0RF famotidine 20 mg Tablet 20 mg PO BID 30 Days Qty: 60 0RF ondansetron 4 mg tablet,disintegrating 4 mg PO Q6H PRN (Reason: nausea and vomiting) Qty: 10 0RF sennosides-docusate sodium [Senna-S] 8.6-50 mg tablet 1 tab-cap PO QHS Qty: 30 0RF polyethylene glycol 3350 [Miralax] 17 gram/dose powder 17 g PO BID Qty: 238 0RF Rx Instructions: Discontinue or take daily depending on need once bowel movements have been initiated sertraline [Zoloft] 50 mg Tablet 50 mg PO DAILY haloperidol 2 mg tablet 2 mg PO Q8H PRN (Reason: nausea and vomiting) Qty: 20 0RF olanzapine 5 mg tablet olanzapine 5 mg tablet mirtazapine 15 mg tablet hydrocodone-acetaminophen 5-325 mg tablet 1 tab PO Q6H PRN (Reason: pain) 3 Days Qty: 10 0RF ondansetron 4 mg tablet,disintegrating 4 mg PO Q8H PRN (Reason: nausea and vomiting) Qty: 10 0RF sulfamethoxazole-trimethoprim [Bactrim DS] 800-160 mg tablet 1 tab PO BID Qty: 20 0RF Primary Care Provider: NOT,DEFINED Referrals: NOT,DEFINED [Primary Care Provider] - Dentist,Your [STAFF PHYSICIAN] - As soon as possible Disposition Disposition: Home, Self Care
[2022-10-08] MEDS: Clindamycin HCl 150 MG Capsule 300 MG PO (21:53)
[2022-10-08] MEDS: HYDROcodone Bitartrate/Apap 5/325 Tablet PO (21:53)
[2022-10-08] MEDS: Naproxen 250 MG Tablet 500 MG PO (21:53)
== END 2022-10-08 22:04 | disposition home or self-care (01) ==
PROVIDERS: Emergency Provider Emergency Medicine; Visit Provider Emergency Medicine
DX: K04.02 Irreversible pulpitis (principal); K02.9 Dental caries, unspecified; I10 Essential (primary) hypertension; K04.01 Reversible pulpitis; K05.20 Aggressive periodontitis, unspecified; E66.9 Obesity, unspecified
CPT/HCPCS: 99283

== ENCOUNTER 2022-12-09 18:32 | Emergency (ER) | payer MEDICAID, SELFPAY ==
[2022-12-09 18:34] VITALS: BP 125/113; PULSE 111; RESP 18; TEMP 36.1; O2SAT 92
[2022-12-09] MEDS: Ondansetron 4 MG/2 ML Vial IV (19:16)
[2022-12-09] MEDS: Morphine 2 MG/ML Syringe IV (19:16)
[2022-12-09 19:22] VITALS: BMI 31.5
[2022-12-09] MEDS: Famotidine 200 MG/20 ML MDV 20 MG in 0.9% Normal Saline (Pres. free 8 ML 300 MG IV (19:24)
[2022-12-09 20:47] LABS: Absolute Neutrophil Count 11.8 X10^3/uL (2.0-7.7); Basophil# 0.05 X10^3/uL; Basophil% 0.3 % (0-1); Eosinophil# 0.39 X10^3/uL; Eosinophils% 2.6 % (0-5); Hematocrit 42.9 % (37-47); Hemoglobin 13.8 g/dL (12.0-15.0); Lymphocyte % 14.5 % (19-41); Mean Corp Hgb Conc 32.2 g/dL (32-36); Mean Corpuscular Hgb 26.6 pg (27.0-32.0); Mean Corpuscular Volume 82.8 fL (81-99); Mean Platelet Vol. 9.6 fl (6.2-12.0); Monocyte# 0.73 X10^3/uL; Monocyte% 4.8 % (0-10); NRBC Flagged by Analyzer 0 % (0-5); Neutrophil # 11.79 X10^3/uL (2.7-7.7); Neutrophil % 77.5 % (47-70); Platelet Count 282 K/mm3 (150-450); RBC Distribution Width CV 14.6 % (11.6-14.6); RBC Distribution Width SD 43.8 fl (35.1-43.9); Red Blood Count 5.18 M/mm3 (4.2-5.4); White Blood Count 15.2 K/mm3 (4.4-11.0)
[2022-12-09] MEDS: Dicyclomine 10 MG Capsule PO (21:21)
[2022-12-09 21:24] LABS: ALB/GLOB Ratio 0.9 RATIO (0.9-2.4); AST(SGOT) 22 U/L (15-37); Alanine Aminotransfer ALT/SGPT 24 U/L (13-56); Albumin, Serum 3.9 g/dL (3.2-5.0); Alkaline Phosphatase 59 U/L (45-117); Anion Gap 8 (5-15); BUN 11 mg/dL (7-18); BUN/Creat Ratio 12.7 RATIO (10-20); Calcium,Total 9.3 mg/dL (8.5-10.1); Chloride 107 mmol/L (98-107); Creatinine, Serum 0.86 mg/dL (0.55-1.02); EST Glomerular Filtration Rate 86 mL/min (>60); Est Glom Filt Rate - Afr Amer 105 mL/min (>60); Estimated Creatinine Clearance 107.23 ml/min; Globulin 4.2 g/dL (2.2-4.2); Glucose 102 mg/dL (74-106); Lactic Acid 2.9 mmol/L (0.4-1.9); Lipase 140 U/L (73-393); Potassium 3.9 mmol/L (3.5-5.1); Protein, Total 8.1 g/dL (6.4-8.2); Sodium Level 137 mmol/L (136-145)
[2022-12-09] MEDS: Haloperidol Lactate 5 MG/ML Vial 2 MG IV (21:24)
--- NOTE | 2022-12-09 21:28 | CT_ITS ---
INDICATION: Abdominal pain, leukocytosis, lactic acidosis, vomiting -- Status post hysterectomy due to cancer EXAMINATION: CT Abdomen And Pelvis W/ Contrast Injection TECHNIQUE: Helically acquired images were obtained of the abdomen and pelvis following IV contrast. A radiation dose optimization technique was used for this scan. IV Contrast dosage and agent: IV 100mL Isovue-370 . Oral contrast: None. RADIATION DOSAGE (If Supplied By Facility): CTDIvol = ( 15.88 ) mGy, DLP = ( 1267.50 ) mGycm Individualized dose optimization techniques were used for this CT. COMPARISON: CT abdomen and pelvis 12/10/2021. FINDINGS: LOWER CHEST: Unremarkable. LIVER: Unremarkable. GALLBLADDER/BILE DUCTS: Unremarkable. PANCREAS: Unremarkable. SPLEEN: Unremarkable. ADRENAL GLANDS: Unremarkable. KIDNEYS / URETERS: Unremarkable. BOWEL / MESENTERY: Unremarkable. No bowel obstruction. APPENDIX: Identified and normal. No evidence of acute appendicitis. PERITONEUM: No free air. No free fluid. VESSELS: Abdominal aorta is normal caliber. RETROPERITONEUM: Unremarkable. REPRODUCTIVE ORGANS: Uterus surgically absent. BLADDER: Minimally distended. Small foci of air in the bladder presumably related to recent instrumentation. Prominent wall. ABDOMINAL WALL: Unremarkable. BONES: No acute abnormality. OTHER: None. CT/Abdomen/Pelvis W IV Cont ONLY IMPRESSION: Small foci of air in the urinary bladder presumably recent instrumentation, but can be seen with cystitis or other process. No other acute findings. Electronically Signed: Gaby Valdes MD at 23:31 EDT ,
[2022-12-09 22:00] VITALS: BP 139/90; PULSE 88; RESP 16; O2SAT 97
--- NOTE | 2022-12-09 22:36 | EX.ED.DYSGE1 ---
HPI <Dr. Jamey Henriquez MD - Last Filed: 12/16/22 20:55> History of Present Illness Chief Complaint: Abd Pain Detail of Chief Complaint: Upper quadrant abdominal pain with vomiting and hematemesis Informant: patient and spouse/S.O. Onset/Context/Timing Onset: Today and Hours Context: Sudden Onset Timing: Continuous Quality: Sharp Location: Left upper quadrant Current Severity: Severe Maximum Severity: Severe Worsened by: Nothing specific Relieved by: Nothing Associated Symptoms Associated Symptoms: Hematemesis with second episode Narrative Narrative: Patient is a 22-year-old female with history of gynecologic cancer. She had a hysterectomy. She states she her ovaries were not removed. She denies fever, chills night sweats. She denies headache, visual, ocular auditory symptoms. She denies cardiac or respiratory symptoms. She denies intolerance to greasy or fried foods. There is no history of cholelithiasis in the family or patient. She denies history of pancreatitis. She denies history of alcohol use. Her last bowel movement was yesterday. Stool was not black or maroon in color. There was no blood noted. Patient denies dysuria, frequency, urgency or hematuria. Pain does not radiate through to her back there is a history of ureterolithiasis. She states this pain is different. Patient states she vomited twice while she was in the shower. Second emesis she was concerned for blood. X-ray reveals what appears to be read gastric contents. There is no coffee grounds. She vomited twice prior to arrival and twice in the department. No blood was noted in emesis in the department. There is no coffee-ground's noted either. Prior similar symptoms: No Recent Illness/Hospitalization: No PFSH <Dr. Jamey Henriquez MD - Last Filed: 12/16/22 20:55> PFSH Medical History (Updated 12/13/22 @ 23:[address] Patti Santos, DO) Cyclic vomiting syndrome Depression Endometrial cancer History of alcohol abuse Hypertension Non-smoker PCOS (polycystic ovarian syndrome) Retained ureteral stent Ureter injury Ureteral stricture, left Home Medications ciprofloxacin HCl 500 mg tablet (Cipro) 500 mg PO BID #14 tabs 12/12/22 [Rx Last Taken Unknown] ondansetron 4 mg disintegrating tablet 4 mg PO Q8H PRN nausea and vomiting #14 tabs 12/12/22 [Rx Last Taken Unknown] Allergy/AdvReac Type Severity Reaction Status Date / Time ceftriaxone [From Rocephin] Allergy Hives Verified 12/13/22 10:41 promethazine [From Phenergan] Allergy Vomiting Verified 12/13/22 10:41 Ringer's solution,lactated Allergy Hives Verified 12/13/22 10:41 Family History (Updated 12/13/22 @ 18:[address] Sandy Solis MD) Father No problems noted. Mother Anxiety and depression GERD (gastroesophageal reflux disease) Surgical History History of hysterectomy for cancer History of renal stent Social History household members: family Smoking Status: Never smoker alcohol intake: former substance use type: marijuana and other details: No marijuana use in the last month ROS <Dr. Jamey Henriquez MD - Last Filed: 12/16/22 20:55> ROS ED Constitutional Constitutional ED: Reports chills, fever(s) and subjective; Denies sweats or weight loss Eyes Eyes: Denies blurry vision, change in vision or diplopia ENT ENT ED: Denies ear pain, rhinorrhea or sore throat Cardiovascular Cardiovascular: Denies chest pain, orthopnea, palpitations, paroxysmal nocturnal dyspnea or racing heartbeat Respiratory/Chest Respiratory/Chest: Denies cough, dyspnea, dyspnea on exertion, orthopnea or paroxysmal nocturnal dyspnea Gastrointestinal Gastrointestinal: Reports nausea, vomiting and other Details: Blood in second emesis ; Denies abdominal pain, constipation, diarrhea or melena Genitourinary Genitourinary ED: Reports LMP (females 10-50) Details: Comment: (Status post hysterectomy); Denies dysuria, hematuria or urinary frequency Musculoskeletal Musculoskeletal: Denies arthralgias, back pain, myalgias or neck pain Integumentary Denies abscess, Abrasions or rash Neurologic Neurologic: Denies headache(s), paresthesias or weakness Psychiatric Psychiatric: Reports anxiety and depression Endocrine Endocrinology: Denies cold intolerance or heat intolerance Hematologic/Lymphatic Hematologic/Lymphatic: Reports systems reviewed and no addt'l complaints, except as documented EXAM <Dr. Jamey Henriquez MD - Last Filed: 12/16/22 20:55> Physical Exam Const Vital Signs: 12/09/22 18:34 12/09/22 22:00 12/10/22 00:00 Temperature 97 F L Temperature Source Temporal Pulse Rate 111 H 88 89 Respiratory Rate 18 16 15 Blood Pressure 125/113 H 139/90 H 129/77 H Blood Pressure Mean 117 106 94 Pulse Ox 92 97 99 Oxygen Delivery Method Room Air Room Air Room Air Positive well nourished, well developed and obese Constitutional Narrative: Difficult to assess. General Appearance ED: well developed and pallor; Negative for cyanotic or diaphoretic Nutritional Appearance: obese HEENT Reports moist mucous membranes HEENT Narrative: Head is atraumatic normocephalic. Ears normal. Nares patent. Posterior pharynx out erythema or exudate. Eyes PERRL and EOMs intact bilaterally General Eye ED: Negative for pale conjunctiva or scleral icterus Neck no lymphadenopathy, supple and no JVD Resp normal respiratory effort and clear to auscultation bilaterally Cardio regular rhythm, S1 normal heart sound, S2 normal heart sound and no murmurs Rate: tachycardic GI normal to inspection, nondistended, normoactive bowel sounds, non-tender and non-distended; Negative for hepatosplenomegaly or no masses GI Narrative: With distraction patient had no pain. Without distraction she complained of severe pain in the left upper quadrant and left lower quadrant. Back/Spine no CVA tenderness Extremity normal to inspection General Extremety ED: Negative for edema or tenderness General Extremity: Negative for edema Neuro oriented x3, CN's II-XII intact bilaterally and no sensory deficits noted Sensorium / Orientation: alert Psych Mood & Affect: depressed and tearful Skin no rashes or lesions noted, no wounds and skin turgor normal General Skin Exam: elasticity normal and pallor; Negative for jaundice <Dr. Jerrell Lozada MD - Last Filed: 12/10/22 01:18> Physical Exam Const Vital Signs: 12/09/22 18:34 12/09/22 22:00 12/10/22 00:00 Temperature 97 F L Temperature Source Temporal Pulse Rate 111 H 88 89 Respiratory Rate 18 16 15 Blood Pressure 125/113 H 139/90 H 129/77 H Blood Pressure Mean 117 106 94 Pulse Ox 92 97 99 Oxygen Delivery Method Room Air Room Air Room Air MDM <Dr. Jamey Henriquez MD - Last Filed: 04/11/23 20:55> [facility] MDM Narrative Medical decision making narrative: Need to consider atypical presentation for ureterolithiasis, pancreatitis, cholelithiasis unlikely and there is concern for affective disorder exacerbating her symptoms. To evaluate patient CBC, lactate, comprehensive metabolic panel and lipase was ordered. Patient's white count is elevated 15.2 thousand with shift. Lactate is elevated 2.9. Since patient has not improved after administration of different antiemetics she was treated with droperidol. She asked asked several times for pain medicine. Initially she was given morphine. She subsequently was given Bentyl. Per my review of the CAT scan there is no abnormality to explain her pain. Until the CAT scan is read by the radiologist and there is an objective findings we will not administer any more pain medicine. Patient was told since she vomited only a one-time blood she may have had a Cindy-Sahni tear. These are self-limiting. In light of the radiologist interpretation of the CAT scan urinalysis was obtained. Of note patient has no urologic symptoms. When I entered the room she is sitting up writhing. In light of this she was questioned regarding marijuana use. She states she has not used any marijuana in a month. We will treat as if patient has cyclic vomiting. Cyclic vomiting order set was initiated. We will turn patient over to the steam box operator physician for reevaluation and disposition. History & Record Review Additional record(s) reviewed:: Prior inpatient record (Patient was noted to have bacteremia and nausea and vomiting on Clinisync September 24.) Lab Data Attestation: I reviewed the patient's lab results. Lab results narrative: White count is elevated. H&H is unremarkable. There is a slight shift with no bandemia. Comprehensive metabolic panel and lipase are normal. Lactate is elevated 2.9. Labs: Laboratory Results - last 24 hr 12/09/22 12/09/22 12/09/22 20:21 20:21 20:21 WBC 15.2 H RBC 5.18 Hgb 13.8 Hct 42.9 MCV 82.8 MCH 26.6 L MCHC 32.2 RDW Std Deviation 43.8 RDW Coeff of Roz 14.6 Plt Count 282 MPV 9.6 Immature Gran % (Auto) 0.300 Neut % (Auto) 77.5 H Lymph % (Auto) 14.5 L [place] % (Auto) 4.8 Eos % (Auto) 2.6 Baso % (Auto) 0.3 Absolute Neuts (auto) 11.8 H Absolute Lymphs (auto) 2.20 Nucleated RBC % 0 Sodium 137 Potassium 3.9 Chloride 107 Carbon Dioxide 22.0 Anion Gap 8 BUN 11 Creatinine 0.86 Estim Creat Clear Calc 107.23 Est GFR (MDRD) Af Amer 105 Est GFR (MDRD) Non-Af 86 BUN/Creatinine Ratio 12.7 Glucose 102 Lactic Acid 2.9 H* Calcium 9.3 Total Bilirubin 0.20 AST 22 ALT 24 Alkaline Phosphatase 59 Total Protein 8.1 Albumin 3.9 Globulin 4.2 Albumin/Globulin Ratio 0.9 Lipase 140 Urine Color Urine Clarity Urine pH Ur Specific [place] Urine Protein Urine Glucose (UA) Urine Ketones Urine Occult Blood Urine Nitrite Urine Bilirubin Urine Urobilinogen Ur Leukocyte Esterase Urine RBC Urine WBC Ur Squamous Epith Cells Urine Bacteria Urine Mucus 12/10/22 00:10 WBC RBC Hgb Hct MCV MCH MCHC RDW Std Deviation RDW Coeff of Roz Plt Count MPV Immature Gran % (Auto) Neut % (Auto) Lymph % (Auto) [place] % (Auto) Eos % (Auto) Baso % (Auto) Absolute Neuts (auto) Absolute Lymphs (auto) Nucleated RBC % Sodium Potassium Chloride Carbon Dioxide Anion Gap BUN Creatinine Estim Creat Clear Calc Est GFR (MDRD) Af Amer Est GFR (MDRD) Non-Af BUN/Creatinine Ratio Glucose Lactic Acid Calcium Total Bilirubin AST ALT Alkaline Phosphatase Total Protein Albumin Globulin Albumin/Globulin Ratio Lipase Urine Color Yellow Urine Clarity Clear Urine pH 8.0 Ur Specific [place] 1.010 Urine Protein 30 H Urine Glucose (UA) Normal Urine Ketones 15 H Urine Occult Blood Negative Urine Nitrite Negative Urine Bilirubin Negative Urine Urobilinogen Normal Ur Leukocyte Esterase 25 H Urine RBC 0 SEEN Urine WBC 0-5 SEEN Ur Squamous Epith Cells 0-5 SEEN Urine Bacteria 0 SEEN Urine Mucus 0 SEEN Radiography Diagnostic Testing: Clinical Impression(s) from Imaging Studies Abdomen/Pelvis CT 12/09/22 21:28 IMPRESSION: Small foci of air in the urinary bladder presumably recent instrumentation, but can be seen with cystitis or other process. No other acute findings. Electronically Signed: Gaby Valdes MD at 23:31 EDT Reading Location ID and State: [facility] / [place] Tel , Service support , Treatment and Re-Evaluation :: Patient and family were informed of laboratory results and results of CAT scan. She was informed that a urine specimen is needed. <Dr. Jerrell Lozada MD - Last Filed: 12/10/22 01:18> [facility] Narrative Medical decision making narrative: Need to consider atypical presentation for ureterolithiasis, pancreatitis, cholelithiasis unlikely and there is concern for affective disorder exacerbating her symptoms. To evaluate patient CBC, lactate, comprehensive metabolic panel and lipase was ordered. Patient's white count is elevated 15.2 thousand with shift. Lactate is elevated 2.9. Since patient has not improved after administration of different antiemetics she was treated with droperidol. She asked asked several times for pain medicine. Initially she was given morphine. She subsequently was given Bentyl. Per my review of the CAT scan there is no abnormality to explain her pain. Until the CAT scan is read by the radiologist and there is an objective findings we will not administer any more pain medicine. Patient was told since she vomited only a one-time blood she may have had a Cindy-Sahni tear. These are self-limiting. In light of the radiologist interpretation of the CAT scan urinalysis was obtained. Of note patient has no urologic symptoms. When I entered the room she is sitting up writhing. In light of this she was questioned regarding marijuana use. She states she has not used any marijuana in a month. We will treat as if patient has cyclic vomiting. Cyclic vomiting order set was initiated. We will turn patient over to the steam box operator physician for reevaluation and disposition. Patient was checked out to me by Dr. Jamey Henriquez. He wanted me to check her urinalysis which is negative. There is no signs of urinary tract infection. I did review her prior labs that he had already done. I also reexamined the patient at 1:15 AM. She is feeling okay. Her nausea is improving. She still has some mild upper abdominal tenderness but no peritoneal signs. No signs of obstruction. I went over her test with her. She would like to be discharged home. She has nausea medication at home. She and family know if she is getting worse to return otherwise follow-up to ensure she is improving. Lab Data Labs: Laboratory Results - last 24 hr 12/09/22 12/09/2223 20:21 20:21 20:21 WBC 15.2 H RBC 5.18 Hgb 13.8 Hct 42.9 MCV 82.8 MCH 26.6 L MCHC 32.2 RDW Std Deviation 43.8 RDW Coeff of Roz 14.6 Plt Count 282 MPV 9.6 Immature Gran % (Auto) 0.300 Neut % (Auto) 77.5 H Lymph % (Auto) 14.5 L [place] % (Auto) 4.8 Eos % (Auto) 2.6 Baso % (Auto) 0.3 Absolute Neuts (auto) 11.8 H Absolute Lymphs (auto) 2.20 Nucleated RBC % 0 Sodium 137 Potassium 3.9 Chloride 107 Carbon Dioxide 22.0 Anion Gap 8 BUN 11 Creatinine 0.86 Estim Creat Clear Calc 107.23 Est GFR (MDRD) Af Amer 105 Est GFR (MDRD) Non-Af 86 BUN/Creatinine Ratio 12.7 Glucose 102 Lactic Acid 2.9 H* Calcium 9.3 Total Bilirubin 0.20 AST 22 ALT 24 Alkaline Phosphatase 59 Total Protein 8.1 Albumin 3.9 Globulin 4.2 Albumin/Globulin Ratio 0.9 Lipase 140 Urine Color Urine Clarity Urine pH Ur Specific [place] Urine Protein Urine Glucose (UA) Urine Ketones Urine Occult Blood Urine Nitrite Urine Bilirubin Urine Urobilinogen Ur Leukocyte Esterase Urine RBC Urine WBC Ur Squamous Epith Cells Urine Bacteria Urine Mucus 12/10/22 00:10 WBC RBC Hgb Hct MCV MCH MCHC RDW Std Deviation RDW Coeff of Roz Plt Count MPV Immature Gran % (Auto) Neut % (Auto) Lymph % (Auto) [place] % (Auto) Eos % (Auto) Baso % (Auto) Absolute Neuts (auto) Absolute Lymphs (auto) Nucleated RBC % Sodium Potassium Chloride Carbon Dioxide Anion Gap BUN Creatinine Estim Creat Clear Calc Est GFR (MDRD) Af Amer Est GFR (MDRD) Non-Af BUN/Creatinine Ratio Glucose Lactic Acid Calcium Total Bilirubin AST ALT Alkaline Phosphatase Total Protein Albumin Globulin Albumin/Globulin Ratio Lipase Urine Color Yellow Urine Clarity Clear Urine pH 8.0 Ur Specific [place] 1.010 Urine Protein 30 H Urine Glucose (UA) Normal Urine Ketones 15 H Urine Occult Blood Negative Urine Nitrite Negative Urine Bilirubin Negative Urine Urobilinogen Normal Ur Leukocyte Esterase 25 H Urine RBC 0 SEEN Urine WBC 0-5 SEEN Ur Squamous Epith Cells 0-5 SEEN Urine Bacteria 0 SEEN Urine Mucus 0 SEEN Radiography Diagnostic Testing: Clinical Impression(s) from Imaging Studies Abdomen/Pelvis CT 12/09/22 21:28 IMPRESSION: Small foci of air in the urinary bladder presumably recent instrumentation, but can be seen with cystitis or other process. No other acute findings. Electronically Signed: Gaby Valdes MD at 23:31 EDT Reading Location ID and State: [facility] / [place] Tel , Service support , Discharge Plan Triage Chief Complaint: Abd Pain Other Complaint: Nausea/Vomiting ED Provider: Jamey Henriquez Dx/Rx/DC Orders Clinical Impression: Abdominal pain, Nausea & vomiting Instructions: Abdominal Pain Prescriptions: No Action ciprofloxacin HCl [Cipro] 500 mg tablet 500 mg PO BID Qty: 14 0RF ondansetron 4 mg tablet,disintegrating 4 mg PO Q8H PRN (Reason: nausea and vomiting) Qty: 14 0RF Activity Restrictions/Additional Instructions: Plenty of fluids and rest. Slowly increase diet as tolerated. Use your home nausea medications as prescribed. Return if getting worse or not improving. Follow-up your primary care physician to ensure you are improving. Disposition Disposition: Home, Self Care Discharge Date/Time: 12/10/22 01:28
[2022-12-09] MEDS: LORazepam 2 MG/ML Syringe 0.5 MG IV (23:49)
[2022-12-10] VITALS: BP 129/77; PULSE 89; RESP 15; O2SAT 99
[2022-12-10 00:14] LABS: Bacteria 0 SEEN /hpf (None Seen); Mucous, Urine 0 SEEN /hpf (<or=2+); Red Blood Cells-Urine 0 SEEN /hpf (0-5)
[2022-12-10 00:15] LABS: Color, Urine Yellow (Yellow); Glucose, Dipstick Normal (Normal); Ketone-Dipstick 15 mg/dl (Negative); Leukocyte Esterase-Dipstick 25 /ul (Negative); Nitrite-Dipstick Negative (Negative); Occult Blood-Urine Negative /ul (Negative); Protein-Dipstick 30 mg/dl (Negative); Urine Bilirubin Dipstick Negative (Negative); Urine Clarity Clear (Clear); Urine Urobilinogen Normal (Normal)
[2022-12-10 00:22] LABS: Squamous Epithelial Cells - UA 0-5 SEEN /hpf (5-10); White Blood Cells 0-5 SEEN /hpf (0-5)
[2022-12-10 00:34] LABS: Reflex Lactate? Y
[2022-12-10 01:13] VITALS: PULSE 86; RESP 15; O2SAT 99
== END 2022-12-10 01:28 | disposition home or self-care (01) ==
PROVIDERS: Emergency Provider Emergency Medicine; Visit Provider Emergency Medicine
DX: R10.9 Unspecified abdominal pain (principal); I10 Essential (primary) hypertension; R11.2 Nausea with vomiting, unspecified; Z85.9 Personal history of malignant neoplasm, unspecified
CPT/HCPCS: 74177; 80053; 81001; 83605; 83690; 85025; 96365; 96367; 96375; 99283; Q9967; A4216; J2405; J3490

== ENCOUNTER 2022-12-11 16:58 | Observation (INO) | payer MEDICAID, SELFPAY ==
[2022-12-11 16:59] VITALS: BP 61/27; PULSE 145; RESP 16; TEMP 36.7; O2SAT 100
[2022-12-11 17:13] VITALS: BP 138/91; PULSE 113; RESP 18; O2SAT 100; BMI 31.3
--- NOTE | 2022-12-11 17:52 | EDS_ITS ---
HPI HPI - GI History of Present Illness Chief Complaint: Abd Pain Informant: patient Abdominal Pain/Flank Pain Onset: Days (2-3) Context: Gradual Onset Timing: Continuous Quality: Aching Location: - (left side abd) Current Severity: Severe Maximum Severity: Severe Worsened by: Food Relieved by: Food Nausea/Vomiting/Emesis GI Symptom: Positive for Nausea and Vomiting Onset: Days (2-3) Quality: Negative for Blood streaks, Coffee ground or Hematemesis Severity: Severe Diarrhea/Melena/Hematochezia GI Symptom: Negative for Diarrhea, Melena or Hematochezia Associated Symptoms Associated Symptoms: Negative for Dysuria, Frequency, Hematuria or Urgency Narrative Narrative: Patient was seen here 2 nights ago for severe left-sided abdominal pain and intractable vomiting, she presents for the same symptoms. She states it is just as severe now as it was when she was here in the ER before and she has no new symptoms including urinary symptoms. She states it started after she ate some sloppy Bogdan[employer] with hamburger, her significant other ate this as well and he did not get any symptoms. She has been seen here before for vomiting. She apparently has a history of smoking marijuana but has not smoked any recently. She denies any other drugs recently. She had chicken noodle soup tonight, the because things do seem to get worse and she has been vomiting uncontrollably and she states that the main issue is the pain, which seems to make her then vomit more. She has been having bowel movements, they are normal, she has been urinating and it is also normal. She denies any pain in her back. She denies any trouble breathing or other chest symptoms. She denies any fevers or chills. No travel out of the area recently or ingestion of any other suspicious foods. Initially was she was seen in the ED 2 nights ago, she had a small amount of hematemesis. She has seen no more blood in any of her emesis since then. [facility] Medical History Alcohol abuse Cancer Depression Endometrial cancer Hydronephrosis Hypertension Menorrhagia Non-smoker Retained ureteral stent Ureter injury Ureteral stricture, left Allergy/AdvReac Type Severity Reaction Status Date / Time ceftriaxone [From Rocephin] Allergy Hives Verified 12/09/22 18:33 promethazine [From Phenergan] Allergy Vomiting Verified 12/09/22 18:33 Ringer's solution,lactated Allergy Hives Verified 12/09/22 18:33 Family History Father No problems noted. Mother No problems noted. Surgical History History of hysterectomy for cancer History of renal stent Social History household members: family Smoking Status: Never smoker alcohol intake: former substance use type: does not use ROS ROS ED Constitutional Constitutional ED: Denies chills or fever(s) Eyes Eyes: Denies change in vision or diplopia ENT ENT ED: Denies rhinorrhea or sore throat Cardiovascular Cardiovascular: Denies chest pain or palpitations Respiratory/Chest Respiratory/Chest: Denies cough or dyspnea Gastrointestinal Gastrointestinal: Reports abdominal pain, nausea and vomiting; Denies diarrhea, hematemesis, hematochezia or melena Genitourinary Genitourinary ED: Denies dysuria or hematuria Musculoskeletal Musculoskeletal: Denies back pain or neck pain Integumentary Denies abscess or rash Neurologic Neurologic: Denies headache(s), paresthesias or weakness Psychiatric Psychiatric: Reports anxiety; Denies suicidal thoughts EXAM Physical Exam Const Vital Signs: 12/11/22 16:59 12/11/22 17:13 12/11/22 20:39 Temperature 98.0 F Temperature Source Temporal Pulse Rate 145 H 113 H 106 H Respiratory Rate 16 18 18 Blood Pressure 61/27 L 138/91 H 142/102 H Blood Pressure Mean 38 106 115 Pulse Ox 100 100 98 Oxygen Delivery Method Room Air Room Air Room Air Positive well nourished and well developed Constitutional Narrative: Patient continuously dry heaving over an emesis bag, there is a very small amount of nonbilious nonbloody emesis within it, much smaller than the amount of vomiting she is doing. General Appearance ED: well developed and NAD HEENT Reports moist mucous membranes normocephalic and atraumatic Eyes PERRL and EOMs intact bilaterally Neck full ROM and supple General: Negative for tenderness Resp normal respiratory effort and clear to auscultation bilaterally Cardio regular rate, regular rhythm and no murmurs Rate: tachycardic GI non-distended GI Narrative: Normal bowel sounds present. Tender throughout the left side of the abdomen, mildly in the suprapubic and epigastric areas, nontender on the right side. No guarding or rebound tenderness. Auscultation: normoactive bowel sounds Palpation: soft Back/Spine no CVA tenderness General Back: other FROM Extremity normal to inspection General Extremety ED: Negative for edema, pulses abnormal or tenderness General Extremity: Negative for edema or pulses abnormal Neuro oriented x3, CN's II-XII intact bilaterally and no sensory deficits noted Sensorium / Orientation: awake and alert Motor Exam: strength 5/5 throughout Psych thought process normal Psych Narrative: Extremely anxious. Skin no rashes or lesions noted and no wounds MDM MDM MDM Narrative Medical decision making narrative: Other than a slightly higher leukocytosis than she had 2 days ago, the rest of her other labs are unremarkable. I reviewed the ED visit from 2 days ago. The physician included cyclic vomiting in the differential diagnosis. In further questioning of the patient, she and her significant other admit that she used to be in here all of the time for abdominal pain and vomiting but this is the first time in the last couple months since she had her ureter surgery, that this has occurred, starting 2 days ago. I initially treated her with cyclic vomiting order set, in addition to fentanyl. She was additionally given Reglan and more fentanyl. She continues to vomit and is unable to keep anything down. She is asking for Dilaudid saying that is what they usually give me. I advised her that we typically do not treat nonverifiable pain here with Dilaudid by happy to admit her as long as she understands that. She is. History & Record Review Additional record(s) reviewed:: Prior ED visit and Prior labs (And imaging including CT) Lab Data Attestation: I reviewed the patient's lab results. Labs: Laboratory Results - last 24 hr 12/11/22 12/11/22 18:00 18:00 WBC 16.0 H RBC 5.33 Hgb 14.1 Hct 43.7 MCV 82.0 MCH 26.5 L MCHC 32.3 RDW Std Deviation 43.6 RDW Coeff of Roz 14.6 Plt Count 285 MPV 9.4 Immature Gran % (Auto) 0.300 Neut % (Auto) 81.0 H Lymph % (Auto) 12.5 L [place] % (Auto) 4.0 Eos % (Auto) 2.0 Baso % (Auto) 0.2 Absolute Neuts (auto) 12.9 H Absolute Lymphs (auto) 1.99 Nucleated RBC % 0 Sodium 139 Potassium 3.5 Chloride 106 Carbon Dioxide 23.0 Anion Gap 10 BUN 11 Creatinine 1.02 Estim Creat Clear Calc 90.41 Est GFR (MDRD) Af Amer 87 Est GFR (MDRD) Non-Af 72 BUN/Creatinine Ratio 10.8 Glucose 104 Calcium 9.9 Total Bilirubin 0.30 AST 13 L ALT 26 Alkaline Phosphatase 61 Total Protein 8.8 H Albumin 4.5 Globulin 4.3 H Albumin/Globulin Ratio 1.0 Lipase 131 Discharge Plan Triage Chief Complaint: Abd Pain ED Provider: Moose Liu Dx/Rx/DC Orders Clinical Impression: Intractable vomiting, Abdominal pain Primary Care Provider: Care Physician,No Primary Referrals: [facility] Doctor,Out of [Non-Staff] - Disposition Disposition: Acute Care [facility]
[2022-12-11] MEDS: 0.9% Normal Saline 1,000 ML 1000 ML IV (18:02)
[2022-12-11] MEDS: Ondansetron 4 MG/2 ML Vial IV (18:03)
[2022-12-11] MEDS: LORazepam 2 MG/ML Syringe 0.5 MG IV (18:04)
[2022-12-11] MEDS: fentaNYL 100 MCG/2 ML Ampul 75 MCG IV (18:06)
[2022-12-11] MEDS: Dicyclomine 20 MG/2 ML Vial IM (18:08)
[2022-12-11 18:19] LABS: Absolute Lymphocyte Count 1.99 X10^3/uL (0.83-4.51); Absolute Neutrophil Count 12.9 X10^3/uL (2.0-7.7); Basophil# 0.03 X10^3/uL; Basophil% 0.2 % (0-1); Eosinophil# 0.32 X10^3/uL; Hematocrit 43.7 % (37-47); Hemoglobin 14.1 g/dL (12.0-15.0); Lymphocyte # 1.99 X10^3/ul (0.83-4.51); Lymphocyte % 12.5 % (19-41); Mean Corp Hgb Conc 32.3 g/dL (32-36); Mean Corpuscular Hgb 26.5 pg (27.0-32.0); Mean Platelet Vol. 9.4 fl (6.2-12.0); Monocyte# 0.64 X10^3/uL; NRBC Flagged by Analyzer 0 % (0-5); Neutrophil # 12.92 X10^3/uL (2.7-7.7); Platelet Count 285 K/mm3 (150-450); RBC Distribution Width CV 14.6 % (11.6-14.6); RBC Distribution Width SD 43.6 fl (35.1-43.9); Red Blood Count 5.33 M/mm3 (4.2-5.4)
[2022-12-11] MEDS: Famotidine 200 MG/20 ML MDV 20 MG in 0.9% Normal Saline (Pres. free 8 ML 300 MG IV (18:44)
--- NOTE | 2022-12-11 18:45 | ED.RN ---
PT DRY HEAVING. REPORTS ITS THE PAIN THAT IS CAUSING NAUSEA. REQUESTING MORE FOR PAIN . DR LAYNE AWARE.
[2022-12-11 18:47] LABS: AST(SGOT) 13 U/L (15-37); Alanine Aminotransfer ALT/SGPT 26 U/L (13-56); Albumin, Serum 4.5 g/dL (3.2-5.0); Alkaline Phosphatase 61 U/L (45-117); Anion Gap 10 (5-15); BUN 11 mg/dL (7-18); BUN/Creat Ratio 10.8 RATIO (10-20); Calcium,Total 9.9 mg/dL (8.5-10.1); Chloride 106 mmol/L (98-107); Creatinine, Serum 1.02 mg/dL (0.55-1.02); EST Glomerular Filtration Rate 72 mL/min (>60); Est Glom Filt Rate - Afr Amer 87 mL/min (>60); Estimated Creatinine Clearance 90.41 ml/min; Globulin 4.3 g/dL (2.2-4.2); Glucose 104 mg/dL (74-106); Lipase 131 U/L (73-393); Potassium 3.5 mmol/L (3.5-5.1); Protein, Total 8.8 g/dL (6.4-8.2); Sodium Level 139 mmol/L (136-145)
[2022-12-11] MEDS: Metoclopramide 10 MG/2 ML Vial 5 MG IV (19:13)
[2022-12-11] MEDS: fentaNYL 100 MCG/2 ML Ampul 50 MCG IV (19:13)
[2022-12-11 20:39] VITALS: BP 142/102; PULSE 106; RESP 18; O2SAT 98
--- NOTE | 2022-12-11 21:02 | PCM.HP.STD ---
HPI - General General Date of Admission: 12/11/22 Date of Service: 12/11/22 Chief Complaint: Intractable nausea and vomiting HPI Narrative ADDIS TORRES, is a 22 F who presented to the emergency department at [facility] on 12/11/2022 with intractable nausea and vomiting and left-sided abdominal pain. Her symptoms started approximately 3 days ago. She was in the ER on 12/09/2022 for similar symptoms and possibly had hematemesis however had a stable hemoglobin and Cindy-Sahni tear was suspected from retching. She has had no hematemesis since that time. A urinalysis was obtained and was unremarkable. She had no urological symptoms. CT of the abdomen pelvis was performed and was overall unremarkable. She does have history of marijuana use however reported she had not used any marijuana in over a month. It was felt at that time she had cyclical vomiting syndrome and was discharged home after improvement. Patient went home and slept pretty much of the day yesterday and woke up last evening and tried to eat some chicken noodle soup after which she started vomiting again. She states that her left-sided abdominal pain is the main issue and this seems to be making her vomit more. She did ask for Dilaudid by name in the emergency department. She denies any urinary symptoms. Denies fever or chills. Vital signs on presentation today showed a temperature of 98.0, heart rate was initially 145 but has improved to 93 on last measurement, blood pressure was initially documented as 61/27 however repeat was 138/91 and she has been stable since that time, respiratory rate 16 and oxygen saturations are 100% on room air. I suspect the low blood pressure was spurious result. CBC shows a leukocytosis with a white count of 16,000 and a left shift at 81%. This has worsened in the last 24 hours. CBC was otherwise unremarkable. Chemistry panel was overall unremarkable with normal BUN and serum creatinine. Liver function is normal. Alk phos is normal. Bilirubin is normal. Lipase was 131. She was given antiemetics and IV fluids emergency department and request for admission was made. I have ordered a repeat CT of the abdomen pelvis given the fact that her symptoms have worsened since her previous CT. [facility] Medical History Alcohol abuse Cancer Depression Endometrial cancer Hydronephrosis Hypertension Menorrhagia Non-smoker Retained ureteral stent Ureter injury Ureteral stricture, left Allergy/AdvReac Type Severity Reaction Status Date / Time ceftriaxone [From Rocephin] Allergy Hives Verified 12/09/22 18:33 promethazine [From Phenergan] Allergy Vomiting Verified 12/09/22 18:33 Ringer's solution,lactated Allergy Hives Verified 12/09/22 18:33 Family History Father No problems noted. Mother No problems noted. Surgical History History of hysterectomy for cancer History of renal stent Social History (Updated 12/11/22 @ 21:[address] Ashley Zepeda DO) household members: family Smoking Status: Never smoker alcohol intake: former substance use type: marijuana and other details: No marijuana use in the last month ROS Constitutional Constitutional: Reports anorexia and weakness; Denies change in weight, chills, fatigue, fever(s), malaise, night sweats or other Eyes Eyes: Denies blurry vision, change in eye color, change in vision, discharge from eye(s), double vision, erythema, eye pain, loss of vision or other ENT HEENT: Denies abnormal hearing, dysphagia, ear pain, epistaxis, headache(s), hearing loss, nasal congestion, nasal discharge, post nasal drip, sinus pressure, sore throat or other Cardiovascular Cardiovascular: Denies chest pain, claudication, dyspnea on exertion, edema, lightheadedness, orthopnea, palpitations, paroxysmal nocturnal dyspnea, rapid heart rate, syncope or other Respiratory/Chest Respiratory/Chest: Denies cough, dyspnea, excessive phlegm production, hemoptysis, productive cough, shortness of breath at rest, shortness of breath with exertion, wheezing or other Gastrointestinal Gastrointestinal: Reports abdominal pain, nausea and vomiting; Denies coffee ground emesis, constipation, diarrhea, dyspepsia, hematemesis, hematochezia, loose stools, melena or other Genitourinary Genitourinary: Denies burning urination, difficulty urinating, dysuria, hematuria, nocturia, urinary frequency, urinary hesitancy, urinary incontinence, urinary urgency or other Musculoskeletal Musculoskeletal: Denies arthralgias, back pain, joint pain, joint stiffness, joint swelling, myalgias, neck pain or other Neurologic Neurologic: Denies abnormal gait, abnormal speech, confusion, disequilibrium, dizziness, focal weakness, headache(s), numbness, paresthesias, seizure-like activity, seizures, syncope, tingling, tremor(s) or other Psychiatric Psychiatric: Denies anxiety, depression, homicidal ideation, suicidal ideation or other Hematologic/Lymphatic Hematologic/Lymphatic: Denies anemia, easy bleeding, easy bruising, lymphadenopathy or other Allergic/Immunologic Allergic/Immunologic: Denies rhinitis, hives, eczemia, asthma or other Vital Signs Vital Signs Vital Signs: 12/11/22 16:59 12/11/22 17:13 12/11/22 20:39 Temperature 98.0 F Temperature Source Temporal Pulse Rate 145 H 113 H 106 H Respiratory Rate 16 18 18 Blood Pressure 61/27 L 138/91 H 142/102 H Blood Pressure Mean 38 106 115 Pulse Ox 100 100 98 Oxygen Delivery Method Room Air Room Air Room Air Weight Weight: 96.3 kg Body Mass Index (BMI) 31.3 Physical Exam Const alert, oriented x3 and average body habitus; Negative for no apparent distress Constitutional Narrative: Obese, ill-appearing, young, white female, sitting up in bed retching, at bedside, appears nontoxic General Appearance: cooperative HEENT normocephalic, head/scalp atraumatic, hearing grossly normal bilaterally and moist oral mucous membranes HEENT Narrative: Mallampati 2, no thrush Eyes PERRL, EOMs intact bilaterally and conjunctivae normal Eyes Narrative: No scleral icterus Neck no lymphadenopathy, supple and no JVD Neck Narrative: Trachea midline, no thyroid enlargement Resp normal respiratory effort, no retractions, no use of accessory muscles and clear to auscultation bilaterally Auscultation: Negative for rales, rhonchi or wheezes Cardio regular rhythm, S1 normal heart sound, S2 normal heart sound, no murmurs, no rub, no gallops, no clicks and no JVD Cardio Narrative: Slightly tachycardic GI Negative for non-tender GI Narrative: Bowel sounds are slightly hypoactive, abdomen is nondistended and normal to inspection, tender on the left side of abdomen diffusely, no distention Palpation: tender LLQ and LUQ; Negative for guarding Extremity no clubbing, cyanosis or edema Extremity Narrative: Pedal pulses are 2+ Skin no rashes or lesions noted, no wounds, skin turgor normal, no jaundice, no petechiae and no mottling Neuro oriented x3, CN's II-XII intact bilaterally, moves all extremities and no focal motor deficits Speech: speech normal Psych Psych Narrative: Affect is flat which would be appropriate for her current situation Mood & Affect: anxious Results Lab / Micro Data Result Diagrams: 12/11/22 18:00 12/11/22 18:00 Labs: Laboratory Results - last 24 hr 12/11/22 18:00: WBC 16.0 H, RBC 5.33, Hgb 14.1, Hct 43.7, MCV 82.0, MCH 26.5 L, MCHC 32.3, RDW Std Deviation 43.6, RDW Coeff of Roz 14.6, Plt Count 285, MPV 9.4, Immature Gran % (Auto) 0.300, Neut % (Auto) 81.0 H, Lymph % (Auto) 12.5 L, [place] % (Auto) 4.0, Eos % (Auto) 2.0, Baso % (Auto) 0.2, Absolute Neuts (auto) 12.9 H, Absolute Lymphs (auto) 1.99, Nucleated RBC % 0 12/11/22 18:00: Sodium 139, Potassium 3.5, Chloride 106, Carbon Dioxide 23.0, Anion Gap 10, BUN 11, Creatinine 1.02, Estim Creat Clear Calc 90.41, Est GFR (MDRD) Af Amer 87, Est GFR (MDRD) Non-Af 72, BUN/Creatinine Ratio 10.8, Glucose 104, Calcium 9.9, Total Bilirubin 0.30, AST 13 L, ALT 26, Alkaline Phosphatase 61, Total Protein 8.8 H, Albumin 4.5, Globulin 4.3 H, Albumin/Globulin Ratio 1.0, Lipase 131 Assessment & Plan Assessment/Plan (1) Abdominal pain: (2) Nausea & vomiting: (3) Intractable vomiting: (4) Leukocytosis: (5) Dehydration: PLAN: Plan Left-sided abdominal pain/intractable nausea and vomiting -Etiology is unclear at this time however patient does have history of cyclical vomiting syndrome -It appears overall she has been doing well since her ureter was reconnected -UA was unremarkable yesterday -CT with IV contrast done yesterday and showed only small foci of air in the urinary bladder and no other acute findings however symptoms have worsened since yesterday therefore we will repeat CT of the abdomen pelvis--> would like to give oral contrast however patient will not tolerate given severe nausea vomiting -We will utilize as needed Haldol and Compazine for antiemetics--> Zofran has been ineffective -Start scopolamine patch -Clear liquid diet for now and advance as tolerated -IV fluids at 100 cc/h with normal saline--> would prefer LR however patient has an allergy to LR -Patient states she is having bowel movements and passing flatus -We will utilize Protonix 40 mg IV push daily Leukocytosis -Worsened since yesterday and left shift is present -Could potentially be due to dehydration -Check CT of the abdomen pelvis -UA done on 12/10/2022 was unremarkable for any signs of infection -Repeat CBC in a.m. Dehydration -Renal function is stable -IV fluids with normal saline at 100 cc/h -Continue to monitor renal function and electrolytes History of left ureteral injury -Patient was undergoing total hysterectomy due to uterine cancer in early 2020 at which time she had a left ureteral injury -Was recently reversed by Dr. Barahona at [facility] -Clinically doing well History of endometrial cancer -Stable DVT prophylaxis -Lovenox daily CODE STATUS -Full code Charges/Coding Visit Charges Inpatient E&M: 51101 Init Hosp L2
[2022-12-11 21:13] VITALS: BP 142/102; PULSE 93; RESP 18; TEMP 36.9; O2SAT 98
[2022-12-11] MEDS: Haloperidol Lactate 5 MG/ML Vial 1 MG IV (21:37)
[2022-12-11] MEDS: Ketorolac 30 MG/ML Syringe IV (21:38)
--- NOTE | 2022-12-11 21:56 | CT_ITS ---
STUDY: CT ABDOMEN AND PELVIS WITH CONTRAST REASON FOR EXAM: Female, 22 years old. L sided abdominal pain -- IV contrast only RADIATION DOSAGE (If Supplied By Facility): CTDIvol = ( 14.54 ) mGy, DLP = ( 1156.36 ) mGycm TECHNIQUE: Transaxial images were obtained from the dome of the diaphragm to the symphysis pubis without oral contrast. IV 100mL Isovue-370 was administered. Sagittal and coronal images were reconstructed. Individualized dose optimization techniques were used for this CT. COMPARISON: December 09, 2022 CT abdomen and pelvis FINDINGS: The visualized lung bases are unremarkable. The visualized portions of the heart are within normal limits. Normal liver. Normal gallbladder and extrahepatic biliary system. Normal spleen. Normal pancreas. Normal bilateral adrenal glands. Normal right kidney. Normal left kidney. Normal visualized stomach. Normal small intestine. There is mild to moderate stool within the colon. There is minimal diverticulosis without visualized diverticulitis. The appendix is visualized and appears normal. Normal abdominal aorta. Normal inferior vena cava. Normal retroperitoneum. There is mild wall thickening of the bladder. There is absence of the uterus consistent with a prior hysterectomy. There are visualized remaining normal-appearing ovaries. There is a small umbilical hernia containing fat. There is mild degenerative change in the thoracolumbar spine. CT/Abdomen/Pelvis W IV Cont ONLY IMPRESSION: Mild wall thickening of the bladder could consider cystitis. Status post hysterectomy. [id number] constipation. Minimal diverticulosis no diverticulitis. No hydronephrosis. Electronically Signed: Danni Beckham MD at 22:16 EDT ,
[2022-12-11 22:12] VITALS: BMI 31.2
[2022-12-11 22:13] VITALS: BP 143/96; PULSE 86; RESP 20; TEMP 36.8; O2SAT 100
[2022-12-11] MEDS: 0.9% Normal Saline 1,000 ML 100 ML IV (22:45)
[2022-12-11] MEDS: Scopolamine 1mg/72hr Patch 1 PATCH TD (22:45)
[2022-12-11] MEDS: Ketorolac 15 MG/ML Vial IV (22:46)
[2022-12-12 04:00] VITALS: BP 121/77; PULSE 67; RESP 16; TEMP 36.9; O2SAT 97
[2022-12-12] MEDS: proCHLORPERazine 10 MG/2 ML Vial 5 MG IV (06:53)
[2022-12-12] MEDS: Ketorolac 15 MG/ML Vial IV (06:53)
[2022-12-12 06:55] LABS: Absolute Lymphocyte Count 2.05 X10^3/uL (0.83-4.51); Absolute Neutrophil Count 6.8 X10^3/uL (2.0-7.7); Basophil# 0.03 X10^3/uL; Basophil% 0.3 % (0-1); Eosinophil# 0.03 X10^3/uL; Eosinophils% 0.3 % (0-5); Hematocrit 37.9 % (37-47); Hemoglobin 11.8 g/dL (12.0-15.0); Lymphocyte # 2.05 X10^3/ul (0.83-4.51); Mean Corp Hgb Conc 31.1 g/dL (32-36); Mean Corpuscular Hgb 26.3 pg (27.0-32.0); Mean Corpuscular Volume 84.4 fL (81-99); Mean Platelet Vol. 9.9 fl (6.2-12.0); Monocyte# 0.77 X10^3/uL; Monocyte% 7.9 % (0-10); NRBC Flagged by Analyzer 0 % (0-5); Neutrophil # 6.83 X10^3/uL (2.7-7.7); Neutrophil % 70.2 % (47-70); POSITIVE COUNT YES; Platelet Count 194 K/mm3 (150-450); RBC Distribution Width CV 14.7 % (11.6-14.6); Red Blood Count 4.49 M/mm3 (4.2-5.4); White Blood Count 9.7 K/mm3 (4.4-11.0)
[2022-12-12 06:57] LABS: Differential Indicated SCAN CRITERIA MET
[2022-12-12 07:15] LABS: Anisocytosis 1+
[2022-12-12 07:16] LABS: Differential Comment SCANNED
[2022-12-12 07:37] LABS: AST(SGOT) 12 U/L (15-37); Alanine Aminotransfer ALT/SGPT 21 U/L (13-56); Albumin, Serum 3.6 g/dL (3.2-5.0); Alkaline Phosphatase 47 U/L (45-117); Anion Gap 8 (5-15); BUN 10 mg/dL (7-18); BUN/Creat Ratio 13.4 RATIO (10-20); Calcium,Total 8.2 mg/dL (8.5-10.1); Chloride 108 mmol/L (98-107); Creatinine, Serum 0.74 mg/dL (0.55-1.02); EST Glomerular Filtration Rate 103 mL/min (>60); Est Glom Filt Rate - Afr Amer 124 mL/min (>60); Estimated Creatinine Clearance 124.62 ml/min; Globulin 3.6 g/dL (2.2-4.2); Glucose 89 mg/dL (74-106); Magnesium 1.9 mg/dL (1.6-2.6); Phosphorus 3.4 mg/dL (2.5-4.9); Potassium 3.7 mmol/L (3.5-5.1); Protein, Total 7.2 g/dL (6.4-8.2); Sodium Level 139 mmol/L (136-145); Thyroid Stim Hormone (TSH) 1.78 uIU/mL (0.358-3.74)
--- NOTE | 2022-12-12 07:39 | PN.HOSP_ITS ---
Reason for Visit Reason for Visit: Diagnoses Elevated white blood cell count, unspecified (12/11/22) Dehydration (12/11/22) Unspecified abdominal pain (12/11/22) Vomiting, unspecified (12/11/22) Nausea with vomiting, unspecified (12/11/22) Subjective Subjective Patient is a 22-year-old lady with history of cyclical vomiting syndrome presented with abdominal pain and intractable nausea vomiting Objective Data Objective Data Vital Signs: Vital Signs Temp Pulse Resp BP Pulse Ox O2 Del Method 98.5 F 67 16 121/77 H 97 Room Air 12/12/22 04:00 12/12/22 04:00 12/12/22 04:00 12/12/22 04:00 12/12/22 04:00 12/12/22 04:00 Oxygen Delivery Method Room Air Weight: 96.1 kg Body Mass Index (BMI) 31.2 Intake & Output: Intake and Output for Last 24 Hours 12/10/22 12/11/22 12/12/22 23:59 23:59 23:59 Intake Total 1120 / 1120 400 / 400 Output Total 100 / 100 Balance 1120 / 1120 300 / 300 Lab / Micro Data Result Diagrams: 12/12/22 06:27 12/12/22 06:27 Labs: Laboratory Results - last 24 hr 12/11/22 18:00: WBC 16.0 H, RBC 5.33, Hgb 14.1, Hct 43.7, MCV 82.0, MCH 26.5 L, MCHC 32.3, RDW Std Deviation 43.6, RDW Coeff of Roz 14.6, Plt Count 285, MPV 9.4, Immature Gran % (Auto) 0.300, Neut % (Auto) 81.0 H, Lymph % (Auto) 12.5 L, [place] % (Auto) 4.0, Eos % (Auto) 2.0, Baso % (Auto) 0.2, Absolute Neuts (auto) 12.9 H, Absolute Lymphs (auto) 1.99, Nucleated RBC % 0 12/11/22 18:00: Sodium 139, Potassium 3.5, Chloride 106, Carbon Dioxide 23.0, Anion Gap 10, BUN 11, Creatinine 1.02, Estim Creat Clear Calc 90.41, Est GFR (MDRD) Af Amer 87, Est GFR (MDRD) Non-Af 72, BUN/Creatinine Ratio 10.8, Glucose 104, Calcium 9.9, Total Bilirubin 0.30, AST 13 L, ALT 26, Alkaline Phosphatase 61, Total Protein 8.8 H, Albumin 4.5, Globulin 4.3 H, Albumin/Globulin Ratio 1.0, Lipase 131 12/12/22 06:27: WBC 9.7, RBC 4.49, Hgb 11.8 L, Hct 37.9, MCV 84.4, MCH 26.3 L, MCHC 31.1 L, RDW Std Deviation 45.0 H, RDW Coeff of Roz 14.7 H, Plt Count 194, MPV 9.9, Immature Gran % (Auto) 0.300, Neut % (Auto) 70.2 H, Lymph % (Auto) 21.0, [place] % (Auto) 7.9, Eos % (Auto) 0.3, Baso % (Auto) 0.3, Absolute Neuts ( auto) 6.8, Absolute Lymphs (auto) 2.05, Nucleated RBC % 0, Differential Comment SCANNED, Anisocytosis 1+ 12/12/22 06:27: Sodium 139, Potassium 3.7, Chloride 108 H, Carbon Dioxide 23.0, Anion Gap 8, BUN 10, Creatinine 0.74, Estim Creat Clear Calc 124.62, Est GFR (MDRD) Af Amer 124, Est GFR (MDRD) Non-Af 103, BUN/Creatinine Ratio 13.4, Glucose 89, Calcium 8.2 L, Phosphorus 3.4, Magnesium 1.9, Total Bilirubin 0.40, AST 12 L, ALT 21, Alkaline Phosphatase 47, Total Protein 7.2, Albumin 3.6, Globulin 3.6, Albumin/Globulin Ratio 1.0, TSH 1.78 Radiography Diagnostic Testing: Radiology Impression Abdomen/Pelvis CT 12/11/22 21:56 IMPRESSION: Mild wall thickening of the bladder could consider cystitis. Status post hysterectomy. [id number] constipation. Minimal diverticulosis no diverticulitis. No hydronephrosis. Electronically Signed: Danni Beckham MD at 22:16 EDT , Physical Exam Narrative GENERAL: cooperative HEENT: Atraumatic; normocephalic EYES; Anicteric, Normal Conjunctiva NECK; supple, normal thyroid, RESPIRATORY: Diminished to auscultation CARDIOVASCULAR: Regular S1 S2, GI: soft, normoactive bowel sounds, : No Renal angle tenderness; EXTREMITIES: No edema, no clubbing, MUSCULOSKELETAL: no muscle wasting NEURO: Awake; no lateralizing signs. SKIN: No Rash PSYCH; Flat affect Assessment & Plan Assessment/Plan (1) Abdominal pain: (2) Intractable vomiting: PLAN: Plan Patient is a 22-year-old lady with history of cyclical vomiting syndrome presented with abdominal pain and intractable nausea vomiting 1. Abdominal pain with intractable nausea vomiting ? Initial imaging studies performed demonstrated mild wall thickening of the bladder possible cystitis. Urine cultures obtained 2 days prior positive for E. coli. Patient started on Levaquin 2. Dehydration ? Managed with IV fluid 3. History of endometrial CA ? Currently stable 4. DVT prophylaxis ? Low risk, encouraging ambulation Time spent in the patient's overall evaluation,decision-making process, review of diagnostic data, adjustment of management, discussion with other providers, nursing nursing and ancillary staff involved in patient's care documentation, 45 Minutes Charges/Coding Visit Charges Inpatient E&M: 55572 [facility] Hosp L2
[2022-12-12 08:18] VITALS: O2SAT 97
[2022-12-12] MEDS: 0.9% Normal Saline 1,000 ML 100 ML IV (09:15)
--- NOTE | 2022-12-12 09:19 | PCM.DC.SUM ---
Providers Date of Admission: 12/11/22 Date of Discharge: 12/12/22 Primary Care Physician: Thania Primary Care Phys Reason For Visit: INTRACABLE NAUSEA AND VOMITING Diagnosis Discharge Diagnosis (1) Abdominal pain: Status: Acute Code(s): R10.9 - Unspecified abdominal pain (2) Intractable vomiting: Status: Acute Code(s): R11.10 - Vomiting, unspecified Plan Patient is a 22-year-old lady with history of cyclical vomiting syndrome presented with abdominal pain and intractable nausea vomiting 1. Abdominal pain with intractable nausea vomiting ? Initial imaging studies performed demonstrated mild wall thickening of the bladder possible cystitis. Urine cultures obtained 2 days prior positive for E. coli. Patient started on Levaquin 2. Dehydration ? Managed with IV fluid 3. History of endometrial CA ? Currently stable 4. DVT prophylaxis ? Low risk, encouraging ambulation Time spent in the patient's overall evaluation,decision-making process, review of diagnostic data, adjustment of management, discussion with other providers, nursing nursing and ancillary staff involved in patient's care documentation, 45 Minutes Medications at Discharge Home Medications ciprofloxacin HCl 500 mg tablet (Cipro) 500 mg PO BID #14 tabs 12/12/22 ondansetron 4 mg disintegrating tablet 4 mg PO Q8H PRN nausea and vomiting #14 tabs 12/12/22 Hospital Course Summary of Care Provided Minutes Spent on Discharge: 45 Physical Exam Narrative GENERAL: cooperative HEENT: Atraumatic; normocephalic EYES; Anicteric, Normal Conjunctiva NECK; supple, normal thyroid, RESPIRATORY: Diminished to auscultation CARDIOVASCULAR: Regular S1 S2, GI: soft, normoactive bowel sounds, : No Renal angle tenderness; EXTREMITIES: No edema, no clubbing, MUSCULOSKELETAL: no muscle wasting NEURO: Awake; no lateralizing signs. SKIN: No Rash PSYCH; Flat affect Weight / BMI Weight Weight: 96.1 kg Body Mass Index (BMI) 31.2 ABG / Lab / Microbiology Data Result Diagrams: 12/12/22 06:27 12/12/22 06:27 Laboratory: Laboratory Results - last 24 hr 12/11/22 18:00: WBC 16.0 H, RBC 5.33, Hgb 14.1, Hct 43.7, MCV 82.0, MCH 26.5 L, MCHC 32.3, RDW Std Deviation 43.6, RDW Coeff of Roz 14.6, Plt Count 285, MPV 9.4, Immature Gran % (Auto) 0.300, Neut % (Auto) 81.0 H, Lymph % (Auto) 12.5 L, [place] % (Auto) 4.0, Eos % (Auto) 2.0, Baso % (Auto) 0.2, Absolute Neuts (auto) 12.9 H, Absolute Lymphs (auto) 1.99, Nucleated RBC % 0 12/11/22 18:00: Sodium 139, Potassium 3.5, Chloride 106, Carbon Dioxide 23.0, Anion Gap 10, BUN 11, Creatinine 1.02, Estim Creat Clear Calc 90.41, Est GFR (MDRD) Af Amer 87, Est GFR (MDRD) Non-Af 72, BUN/Creatinine Ratio 10.8, Glucose 104, Calcium 9.9, Total Bilirubin 0.30, AST 13 L, ALT 26, Alkaline Phosphatase 61, Total Protein 8.8 H, Albumin 4.5, Globulin 4.3 H, Albumin/Globulin Ratio 1.0, Lipase 131 12/12/22 06:27: WBC 9.7, RBC 4.49, Hgb 11.8 L, Hct 37.9, MCV 84.4, MCH 26.3 L, MCHC 31.1 L, RDW Std Deviation 45.0 H, RDW Coeff of Roz 14.7 H, Plt Count 194, MPV 9.9, Immature Gran % (Auto) 0.300, Neut % (Auto) 70.2 H, Lymph % (Auto) 21.0, [place] % (Auto) 7.9, Eos % (Auto) 0.3, Baso % (Auto) 0.3, Absolute Neuts (auto) 6.8, Absolute Lymphs (auto) 2.05, Nucleated RBC % 0, Differential Comment SCANNED, Anisocytosis 1+ 12/12/22 06:27: Sodium 139, Potassium 3.7, Chloride 108 H, Carbon Dioxide 23.0, Anion Gap 8, BUN 10, Creatinine 0.74, Estim Creat Clear Calc 124.62, Est GFR (MDRD) Af Amer 124, Est GFR (MDRD) Non-Af 103, BUN/Creatinine Ratio 13.4, Glucose 89, Calcium 8.2 L, Phosphorus 3.4, Magnesium 1.9, Total Bilirubin 0.40, AST 12 L, ALT 21, Alkaline Phosphatase 47, Total Protein 7.2, Albumin 3.6, Globulin 3.6, Albumin/Globulin Ratio 1.0, TSH 1.78 Radiography Diagnostic Testing: Radiology Impression Abdomen/Pelvis CT 12/11/22 21:56 IMPRESSION: Mild wall thickening of the bladder could consider cystitis. Status post hysterectomy. [id number] constipation. Minimal diverticulosis no diverticulitis. No hydronephrosis. Electronically Signed: Danni Beckham MD at 22:16 EDT , D/C Instructions Discharge Diet: No restrictions Discharge Activity: Return to Normal Activity Call your doctor if you observe: Fever of 101 or Higher, Shortness of breath, Fainting spells and Chest pain Meaningful Use Info Meaningful Use Diagnoses (Choose all that apply): None applicable Discharge Plan Admission Admit Date/Time: 12/11/22 20:56 Attending Provider: Hao Fatima Primary Care Provider: Care Physician,No Primary Consulting Providers: Ashley Zepeda Discharge Orders/Prescriptions Prescriptions: New ciprofloxacin HCl [Cipro] 500 mg tablet 500 mg PO BID Qty: 14 0RF ondansetron 4 mg tablet,disintegrating 4 mg PO Q8H PRN (Reason: nausea and vomiting) Qty: 14 0RF Referrals / Follow Up: Care Physician,No Primary [Primary Care Provider] - [facility] Doctor,Out of [Non-Staff] - Disposition Disposition (needs filled in before D/C Order can be placed): Home, Self Care Charges/Coding Visit Charges Inpatient E&M: 85755 Disch Hosp >30min
[2022-12-12 11:03] VITALS: BP 108/65; PULSE 78; RESP 18; TEMP 37.1; O2SAT 100
[2022-12-12] MEDS: levoFLOXacin IV 750 MG/150 ML BAG 100 MG IV (12:04)
--- NOTE | 2022-12-12 14:08 | NURSING ---
Tolerated lunch with no nausea and only minimal but tolerable abd pain. Pt wants to go home.
== END 2022-12-12 14:20 | disposition home or self-care (01) ==
LOC: ED 20:59 → MS3 21:12
PROVIDERS: Admitting Provider Internal Medicine; Emergency Provider Emergency Medicine; Visit Provider Internal Medicine
DX: R10.9 Unspecified abdominal pain (principal); R11.2 Nausea with vomiting, unspecified; R19.7 Diarrhea, unspecified; D72.829 Elevated white blood cell count, unspecified; I10 Essential (primary) hypertension; E86.0 Dehydration
CPT/HCPCS: 36415; 74177; 80053 ×2; 83690; 83735; 84100; 84443; 85025 ×2; 94668; 99283; J2405; J7030 ×2; Q9967; A4216; J3490

== ENCOUNTER 2022-12-13 10:39 | Inpatient (IN) | payer MEDICAID, SELFPAY ==
[2022-12-13] VITALS (7 sets, daily range): BP systolic 131–144; BP diastolic 67–90; PULSE 73–106; RESP 16–21; TEMP 36.8–37.9; O2SAT 96–100; BMI 31.6; BMI 31.3
--- NOTE | 2022-12-13 11:42 | EDS_ITS ---
HPI HPI - GI History of Present Illness Chief Complaint: Abd Pain Informant: patient and spouse/S.O. Narrative Narrative: Patient is a 22-year-old female with history of PCOS, hysterectomy and what sounds like cyclic vomiting syndrome however patient denies presenting with continued abdominal pain as well as nausea and vomiting. Patient states she is been having abdominal pain which is then causing her to vomit since Thursday. She was admitted to the hospital on (2 days ago) for intractable nausea/vomiting as well as a UTI. In the hospital she received Compazine and Haldol. She states her symptoms never got under control however she was discharged home yesterday. She did have a scopolamine patch but states it fell off but it was not working anyway. She did try a hot shower before coming in with no relief of her symptoms. She denies any change in her symptoms except that her vomiting and abdominal pain is now more severe. Patient did have a CT of her abdomen and pelvis on 12/09 as well as 12/11. On 12/11 that showed mild to moderate constipation with mild wall thickening of the bladder, consider cystitis. Status post hysterectomy. No hydronephrosis. Patient did have a urine culture that was positive for pansensitive E. coli. States she not been able to tolerate her antibiotics since discharge and the ODT Zofran is not working at home. [facility] Medical History (Updated 12/13/22 @ 23:[address] Patti Santos, DO) Cyclic vomiting syndrome Depression Endometrial cancer History of alcohol abuse Hypertension Non-smoker PCOS (polycystic ovarian syndrome) Retained ureteral stent Ureter injury Ureteral stricture, left Home Medications ciprofloxacin HCl 500 mg tablet (Cipro) 500 mg PO BID #14 tabs 12/12/22 [Rx Last Taken Unknown] ondansetron 4 mg disintegrating tablet 4 mg PO Q8H PRN nausea and vomiting #14 tabs 12/12/22 [Rx Last Taken Unknown] Allergy/AdvReac Type Severity Reaction Status Date / Time ceftriaxone [From Rocephin] Allergy Hives Verified 12/13/22 10:41 promethazine [From Phenergan] Allergy Vomiting Verified 12/13/22 10:41 Ringer's solution,lactated Allergy Hives Verified 12/13/22 10:41 Family History (Updated 12/13/22 @ 18:[address] Sandy Solis MD) Father No problems noted. Mother Anxiety and depression GERD (gastroesophageal reflux disease) Surgical History History of hysterectomy for cancer History of renal stent Social History household members: family Smoking Status: Never smoker alcohol intake: former substance use type: marijuana and other details: No marijuana use in the last month ROS ROS ED Constitutional Constitutional ED: Denies chills or fever(s) ENT ENT ED: Denies sore throat Cardiovascular Cardiovascular: Denies chest pain Respiratory/Chest Respiratory/Chest: Denies cough Gastrointestinal Gastrointestinal: Reports abdominal pain, nausea and vomiting Musculoskeletal Musculoskeletal: Denies arthralgias or myalgias Integumentary Denies rash Neurologic Neurologic: Denies headache(s) Psychiatric Psychiatric: Reports anxiety EXAM Physical Exam Const Vital Signs: 12/13/22 10:42 12/13/22 12:58 Temperature 98.7 F 98.4 F Temperature Source Temporal Temporal Pulse Rate 73 73 Respiratory Rate 18 18 Blood Pressure 143/67 H 144/88 H Blood Pressure Mean 92 106 Pulse Ox 99 99 Oxygen Delivery Method Room Air Room Air Positive well nourished and well developed Constitutional Narrative: Patient retching, uncomfortable appearing General Appearance ED: well developed; Negative for pallor HEENT Reports dry mucous membranes normocephalic and atraumatic Mouth ED: Yes dry mucous membranes Mouth: dry mucous membranes Eyes PERRL and EOMs intact bilaterally Neck supple Resp normal respiratory effort and clear to auscultation bilaterally Cardio regular rate, regular rhythm and no murmurs GI non-distended GI Narrative: Diffusely tender. No peritoneal signs. Palpation: Negative for guarding or rigid Back/Spine no CVA tenderness Extremity full ROM Neuro moves all extremities Sensorium / Orientation: alert Motor Exam: general weakness Psych mental status grossly normal and thought process normal Mood & Affect: anxious Skin no wounds General Skin Exam: Negative for jaundice or pallor MDM MDM MDM Narrative Medical decision making narrative: Patient is evaluated for recurrent nausea and vomiting. She complained of diffuse abdominal pain. Patient has had 2 CTs of her abdomen pelvis for similar presentation over the past week. I do not think she requires repeat imaging. She seems to have a history of cyclic vomiting syndrome but denies this to me. Her drug screen is positive for cannabis however she is stated she had not used any cannabis in over a year. Patient has a mild leukocytosis of 12.0 however it still down from earlier in the week when it was 16.0. Potassium mildly low at 3.3 and her creatinine is at 1.04. When patient was discharged yesterday her creatinine was 0.74 so she likely does have a component of dehydration. She do es not have any other electrolyte abnormalities. Patient is treated with IV Zofran and fluids. She does not have improvement with the Zofran. She is then given the cyclic vomiting syndrome protocol medications. Her vomit is nonbloody nonbilious. She does seem more comfortable and is now resting. She is able to tolerate oral Bentyl. However when she wakes up she starts retching again. Given her intractable nausea vomiting likely she will require admission. I did discuss the case with SHERI Tolliver. He recommended a Dobbhoff to suction out the remaining contents of her stomach, provide stomach rest and then they can start tube feeds. Patient states that she has had tube feeds in the past as well as TPN and needs sedation for it. Patient is given 2 mg IV Versed and then the NG tube is placed. She does not tolerate the tube well however I am able to get it placed. X-ray shows that it does need to be advanced. Patient is having increased pain after the tube was placed and so she is given a small dose of fentanyl as well as dose of IV Haldol and IV Toradol. History & Record Review Additional record(s) reviewed:: Prior inpatient record (Admission for intractable nausea, vomiting, intractable abdominal pain and UTI. Culture was E. coli that pansensitive. Discharged home yesterday.) Lab Data Attestation: I reviewed the patient's lab results. Labs: Laboratory Results - last 24 hr 12/13/22 12/13/22 12/13/22 11:50 11:50 11:50 WBC 12.0 H RBC 4.70 Hgb 12.8 Hct 39.7 MCV 84.5 MCH 27.2 MCHC 32.2 RDW Std Deviation 44.4 H RDW Coeff of Roz 14.5 Plt Count 217 MPV 10.1 Immature Gran % (Auto) 0.300 Neut % (Auto) 83.2 H Lymph % (Auto) 11.4 L [place] % (Auto) 4.2 Eos % (Auto) 0.6 Baso % (Auto) 0.3 Absolute Neuts (auto) 10.0 H Absolute Lymphs (auto) 1.37 Nucleated RBC % 0 Sodium 139 Potassium 3.3 L Chloride 108 H Carbon Dioxide 21.0 Anion Gap 10 BUN 11 Creatinine 1.04 H Estim Creat Clear Calc 88.67 Est GFR (MDRD) Af Amer 85 Est GFR (MDRD) Non-Af 70 BUN/Creatinine Ratio 10.6 Glucose 94 Calcium 9.3 Magnesium 2.0 Total Bilirubin 0.60 AST 11 L ALT 23 Alkaline Phosphatase 52 Total Protein 8.0 Albumin 4.1 Globulin 3.9 Albumin/Globulin Ratio 1.1 Lipase 101 Urine Opiates Screen Urine Methadone Screen Ur Barbiturates Screen Ur Phencyclidine Scrn Ur Amphetamines Screen MDMA (Ecstasy) Screen U Benzodiazepines Scrn Urine Cocaine Screen U Cannabinoids Screen Ur Drug Screen Comment 12/13/22 13:20 WBC RBC Hgb Hct MCV MCH MCHC RDW Std Deviation RDW Coeff of Roz Plt Count MPV Immature Gran % (Auto) Neut % (Auto) Lymph % (Auto) [place] % (Auto) Eos % (Auto) Baso % (Auto) Absolute Neuts (auto) Absolute Lymphs (auto) Nucleated RBC % Sodium Potassium Chloride Carbon Dioxide Anion Gap BUN Creatinine Estim Creat Clear Calc Est GFR (MDRD) Af Amer Est GFR (MDRD) Non-Af BUN/Creatinine Ratio Glucose Calcium Magnesium Total Bilirubin AST ALT Alkaline Phosphatase Total Protein Albumin Globulin Albumin/Globulin Ratio Lipase Urine Opiates Screen NEGATIVE Urine Methadone Screen NEGATIVE Ur Barbiturates Screen NEGATIVE Ur Phencyclidine Scrn NEGATIVE Ur Amphetamines Screen NEGATIVE MDMA (Ecstasy) Screen NEGATIVE U Benzodiazepines Scrn NEGATIVE Urine Cocaine Screen NEGATIVE U Cannabinoids Screen POSITIVE H Ur Drug Screen Comment Management Discussion w/another healthcare provider: Hospitalist and Account Analyst (GI) Discharge Plan Dx/Rx/DC Orders Clinical Impression: Dehydration, Intractable vomiting, Leukocytosis Disposition Disposition: Acute Care Hospital [facility] Discharge Date/Time: 12/13/22 20:14
[2022-12-13] MEDS: 0.9% Normal Saline 1,000 ML 1000 ML IV (11:48)
[2022-12-13] MEDS: LORazepam 2 MG/ML Syringe 0.5 MG IV (11:49)
[2022-12-13] MEDS: Ondansetron 4 MG/2 ML Vial IV (11:49)
[2022-12-13 11:56] LABS: Absolute Lymphocyte Count 1.37 X10^3/uL (0.83-4.51); Basophil# 0.04 X10^3/uL; Basophil% 0.3 % (0-1); Eosinophil# 0.07 X10^3/uL; Eosinophils% 0.6 % (0-5); Hematocrit 39.7 % (37-47); Hemoglobin 12.8 g/dL (12.0-15.0); Lymphocyte # 1.37 X10^3/ul (0.83-4.51); Lymphocyte % 11.4 % (19-41); Mean Corp Hgb Conc 32.2 g/dL (32-36); Mean Corpuscular Hgb 27.2 pg (27.0-32.0); Mean Corpuscular Volume 84.5 fL (81-99); Mean Platelet Vol. 10.1 fl (6.2-12.0); Monocyte% 4.2 % (0-10); NRBC Flagged by Analyzer 0 % (0-5); Neutrophil # 9.97 X10^3/uL (2.7-7.7); Neutrophil % 83.2 % (47-70); Platelet Count 217 K/mm3 (150-450); RBC Distribution Width CV 14.5 % (11.6-14.6); RBC Distribution Width SD 44.4 fl (35.1-43.9)
[2022-12-13] MEDS: Famotidine 200 MG/20 ML MDV 20 MG in 0.9% Normal Saline (Pres. free 8 ML 300 MG IV (12:04)
[2022-12-13 12:12] LABS: ALB/GLOB Ratio 1.1 RATIO (0.9-2.4); AST(SGOT) 11 U/L (15-37); Alanine Aminotransfer ALT/SGPT 23 U/L (13-56); Albumin, Serum 4.1 g/dL (3.2-5.0); Alkaline Phosphatase 52 U/L (45-117); Anion Gap 10 (5-15); BUN 11 mg/dL (7-18); BUN/Creat Ratio 10.6 RATIO (10-20); Calcium,Total 9.3 mg/dL (8.5-10.1); Chloride 108 mmol/L (98-107); Creatinine, Serum 1.04 mg/dL (0.55-1.02); EST Glomerular Filtration Rate 70 mL/min (>60); Est Glom Filt Rate - Afr Amer 85 mL/min (>60); Estimated Creatinine Clearance 88.67 ml/min; Globulin 3.9 g/dL (2.2-4.2); Glucose 94 mg/dL (74-106); Lipase 101 U/L (73-393); Potassium 3.3 mmol/L (3.5-5.1); Sodium Level 139 mmol/L (136-145)
[2022-12-13] MEDS: levoFLOXacin IV 750 MG/150 ML BAG 100 MG IV (15:14)
[2022-12-13] MEDS: Dicyclomine 10 MG Capsule 20 MG PO (15:14)
--- NOTE | 2022-12-13 16:18 | NURSING ---
HOSPITALIST PAGED DR COMBS
--- NOTE | 2022-12-13 16:36 | HP.PCM_ITS ---
HPI - General General Date of Admission: 12/13/22 Date of Service: 12/13/22 Chief Complaint: Intractable L sided abdominal pain, N/V HPI Narrative The patient is a 22 y/o F w/ PMHx: Hx Endometrial CA s/p hysterectomy, Hx PCOS, Hx ureteral strictures s/p stenting, HTN, Depression and Anxiety, Hx EtOH abuse reporting sobriety and chart noted Cannabis chronic use with history of cyclic vomiting syndrome who presents to the [facility] ED on 12/13/22 with history of recent discharge 12/12/22 secondary to persistent left-sided abdominal pain with intra ctable nausea and emesis with CT imaging at that time demonstrating mild wall thickening with possible cystitis with urine cultures consistent with pansensitive E. coli UTI with colony count greater than 100,000 discharged on ciprofloxacin 7-day additional course with since her discharge ongoing abdominal discomfort now she is reporting it is more severe with associated nausea and emesis prompting representation. Patient during her prior admission did report a mild amount of small blood with her emesis which was felt secondary to a Cindy-Sahni tear as she had significantly stable hemoglobins which were trended over time. Work-up in the ED included T98.4, heart rate 73, BP 144/88, respiratory rate 18, 99% on room air, CBC with WC 12, hemoglobin 12.8, platelets 217 with left shift, CMP with potassium 3.3, chloride 108, BUN/creat 11/1.04 otherwise hepatic profile not marked appearing, lipase 101. In the ED patient ministered 1 L normal saline, Zofran 4 mg IV x1, Ativan 5 mg IV x1, Levaquin 750 mg IV x1, famotidine 20 mg IV, diphenhydramine 50 mg IV as well as dicyclomine 20 mg p.o. x1. Of note patient did have CT abdomen and pelvis on both 12/09/2022 and 12/11/2022. ED discussed case with GI Dr. Gunn upon patient admission and decision for placement of Dobbhoff tube with attachment to low intermittent wall suction and trial of Haldol given intractable nature. [facility] Medical History (Updated 12/13/22 @ 16:[address] Sandy Solis MD) Cyclic vomiting syndrome Depression Endometrial cancer History of alcohol abuse Hypertension Non-smoker PCOS (polycystic ovarian syndrome) Retained ureteral stent Ureter injury Ureteral stricture, left Home Medications ciprofloxacin HCl 500 mg tablet (Cipro) 500 mg PO BID #14 tabs 12/12/22 [Rx Last Taken Unknown] ondansetron 4 mg disintegrating tablet 4 mg PO Q8H PRN nausea and vomiting #14 tabs 12/12/22 [Rx Last Taken Unknown] Allergy/AdvReac Type Severity Reaction Status Date / Time ceftriaxone [From Rocephin] Allergy Hives Verified 12/13/22 10:41 promethazine [From Phenergan] Allergy Vomiting Verified 12/13/22 10:41 Ringer's solution,lactated Allergy Hives Verified 12/13/22 10:41 Family History (Updated 12/13/22 @ 18:[address] Sandy Solis MD) Father No problems noted. Mother Anxiety and depression GERD (gastroesophageal reflux disease) Surgical History History of hysterectomy for cancer History of renal stent Social History household members: family Smoking Status: Never smoker alcohol intake: former substance use type: marijuana and other details: No marijuana use in the last month ROS ROS Narrative Admission Review of Systems: CONSTITUTIONAL: No weight loss, fever, chills, + weakness or fatigue. HEENT: Eyes: No visual loss, blurred vision, double vision or yellow sclerae. Ears, Nose, Throat: No hearing loss, sneezing, congestion, runny nose or sore throat. SKIN: No rash or itching, lesions, wounds. CARDIOVASCULAR: No chest pain, chest pressure or chest discomfort, palpitations, edema, orthopnea, syncopal events. RESPIRATORY: No shortness of breath, cough or sputum, wheezing, hemoptysis. GASTROINTESTINAL: + anorexia, nausea, vomiting, abdominal pain, constipation. No diarrhea, melena, BRBPR. GENITOURINARY: No dysuria, frequency, urgency or retention. NEUROLOGICAL: No headache, dizziness, syncope, paralysis, ataxia, numbness or tingling in the extremities, focal weakness, change in bowel or bladder control, seizure. MUSCULOSKELETAL: + muscle, back pain, joint pain or stiffness. HEMATOLOGIC: No anemia, bleeding or bruising. LYMPHATICS: No enlarged nodes. No history of splenectomy. PSYCHIATRIC: + history of depression or anxiety. ENDOCRINOLOGIC: No reports of sweating, cold or heat intolerance. No polyuria or polydipsia. ALLERGIES: No history of asthma, hives, eczema or rhinitis. Vital Signs Vital Signs Vital Signs: 12/13/22 10:42 12/13/22 12:58 Temperature 98.7 F 98.4 F Temperature Source Temporal Temporal Pulse Rate 73 73 Respiratory Rate 18 18 Blood Pressure 143/67 H 144/88 H Blood Pressure Mean 92 106 Pulse Ox 99 99 Oxygen Delivery Method Room Air Room Air Weight Weight: 213 lb 13.574 oz Body Mass Index (BMI) 31.6 Physical Exam Narrative Physical Examination: General: Awake, alert, oriented x 3 and cooperative, seated upright in the ED bed, fatigued and ill-appearing, notable for she was in Skin: Normal color, normal turgor, no icterus, no cyanosis except staged ecchymoses likely from previous IV sites and lab draws from recent hospitalization. HEENT: AT/NC, EOMI, PERRLA, dry MM, no carotid bruits or JVD noted. Lungs: Mildly diminished, greater bases, appropriate effort, no rales, ronchi or wheezing. Heart: Currently regular rate and rhythm; no gallop, rub audible. Abdomen: Soft, primarily discomfort to the left upper and lower quadrant but no rebound or guarding, no marked distention, mildly hyperactive bowel sounds, no obvious HSM but difficult exam given discomfort. Extremities: No cyanosis, clubbing, or edema. Neurological: Patient awake, alert, oriented as noted, cognitive function intact; pupils equally reactive to light and accommodation, cranial nerves II- XII grossly normal, moving all 4 extremities, no focal deficits, strength moderately global decrease secondary to current acute complaints Psychiatric: Affect appears fatigued, ill-appearing, currently not having emesis, no acute evidence of depressive or anxiety feelings but does have underlying history. Results Lab / Micro Data Result Diagrams: 12/13/22 11:50 12/13/22 11:50 Labs: Laboratory Results - last 24 hr 12/13/22 11:50: WBC 12.0 H, RBC 4.70, Hgb 12.8, Hct 39.7, MCV 84.5, MCH 27.2, MCHC 32.2, RDW Std Deviation 44.4 H, RDW Coeff of Roz 14.5, Plt Count 217, MPV 10.1, Immature Gran % (Auto) 0.300, Neut % (Auto) 83.2 H, Lymph % (Auto) 11.4 L, [place] % (Auto) 4.2, Eos % (Auto) 0.6, Baso % (Auto) 0.3, Absolute Neuts (auto) 10.0 H, Absolute Lymphs (auto) 1.37, Nucleated RBC % 0 12/13/22 11:50: Sodium 139, Potassium 3.3 L, Chloride 108 H, Carbon Dioxide 21.0, Anion Gap 10, BUN 11, Creatinine 1.04 H, Estim Creat Clear Calc 88.67, Est GFR (MDRD) Af Amer 85, Est GFR (MDRD) Non-Af 70, BUN/Creatinine Ratio 10.6, Glucose 94, Calcium 9.3, Total Bilirubin 0.60, AST 11 L, ALT 23, Alkaline Phosphatase 52, Total Protein 8.0, Albumin 4.1, Globulin 3.9, Albumin/Globulin Ratio 1.1, Lipase 101 Assessment & Plan Assessment/Plan (1) Abdominal pain: (2) Nausea & vomiting: PLAN: Plan The patient is a 22 y/o F w/ PMHx: Hx Endometrial CA s/p hysterectomy, Hx PCOS, Hx ureteral strictures s/p stenting, HTN, Depression and Anxiety, Hx EtOH abuse reporting sobriety and chart noted Cannabis chronic use with history of cyclic vomiting syndrome who presents to the [facility] ED on 12/13/22 with history of recent discharge 12/12/22 secondary to persistent left-sided abdominal pain with intractable nausea and emesis with CT imaging at that time demonstrating mild wall thickening with possible cystitis with urine cultures consistent with pansensitive E. coli UTI with colony count greater than 100,000 discharged on ciprofloxacin 7-day additional course with since her discharge ongoing abdominal discomfort now she is reporting it is more severe with associated nausea and emesis prompting representation. #1. Intractable Nausea and Emesis, abdominal diffuse pain, Multifactorial, possible secondary to Recent acute E. coli urinary tract infection and also possible component cyclic vomiting syndrome with cannbis usage: Will admit to [facility], as noted patient with diagnosis recently with acute urinary tract infection with aleman sensitivity, given intractable nausea and recurrent emesis will transition back to IV Levaquin and may need to be redosed today number needed given potential inability to tolerate any of her medications since discharge, will continue serial antiemetic regimen with trial haldol with scheduled regimen if assists and continue as needed Compazine, per GI recommendation planned initiate of DHT in the ED with LIWS to see if assists in calming her N/V, encourage avoidance of cannabis, UDS requested, maintain on IV PPI, will continue GI consultation initiated per ED. #2. Mild acute renal insufficiency: Admission BUN/creatinine 11/1.04, baseline creatinine primarily 0.5-0.8, will continue judicious hydration and repeat level in a.m. #3. Hypokalemia: Admission K+ 3.3, magnesium level requested, supplementation given, repeat level in AM. #4. Hypertension: Noted history however per review of medications patient is not on any medication, BP currently above goal, potentially related with her acute presentation, continue to monitor and add regimen if appropriate, as needed IV hydralazine in the interim. #5. History endometrial cancer: Status post hysterectomy, considered in remission, encourage continued outpatient follow-up as previously arranged #6. Anxiety and depression: We will continue patient home sertraline regimen. #7. History of left ureteral injury: Patient with reported unfortunate left ureteral injury during hysterectomy secondary to underlying uterine cancer in 2020 with recent further intervention and reversal by Dr. Barahona in [facility]. #8. DVT prophylaxis: Lovenox. #9. CODE STATUS: Full code. Admission Evaluation Time spent evaluating chart, patient history, patient evaluation, care planning and discussion with specialists: 75 minutes. Charges/Coding Visit Charges Inpatient E&M: 96381 Init Hosp L3
--- NOTE | 2022-12-13 17:30 | NURSING ---
PCU WHITE INTRACTABLE N/V
[2022-12-13 18:05] LABS: Amphetamine Urine VISTA NEGATIVE (<1000 ng/mL); Barbiturate Urine VISTA NEGATIVE (< 200 ng/mL); Benzodiazepine Urine VISTA NEGATIVE (< 200 ng/mL); Cocaine Urine VISTA NEGATIVE (< 300 ng/mL); Ecstacy Urine VISTA NEGATIVE (< 500 ng/mL); Methadone Urine VISTA NEGATIVE (< 300 ng/mL); PCP Urine VISTA NEGATIVE (< 25 ng/mL); THC Urine VISTA POSITIVE (< 50 ng/mL); Vista UDS pH Range 4
[2022-12-13] MEDS: Midazolam 2 MG/2 ML Syringe IV (18:55)
--- NOTE | 2022-12-13 19:05 | RAD_ITS ---
INDICATION: Dobbhoff catheter placement EXAMINATION/TECHNIQUE: X-RAY - XR Abdomen 1 View COMPARISON: None FINDINGS: Feeding tube tip in the proximal stomach. RAD/Abdomen Single View (Portable) IMPRESSION: Proximal position of the Dobbhoff tube which should be advanced 30 to 40 cm. Electronically Signed: Freedom Scott MD at 19:37 EDT ,
[2022-12-13] MEDS: fentaNYL 100 MCG/2 ML Ampul 50 MCG IV (19:49)
[2022-12-13] MEDS: Haloperidol Lactate 5 MG/ML Vial 1 MG IV ×2 (19:49→21:13)
[2022-12-13] MEDS: Ketorolac 15 MG/ML Vial IV (19:49)
--- NOTE | 2022-12-13 21:03 | NURSING ---
tita advanced only about 10cm, pt was unable to tolerate any further advancement w/o pain.
[2022-12-13] MEDS: 0.9% Normal Saline 1,000 ML 150 ML IV (21:17)
[2022-12-13] MEDS: Potassium Chloride 10mEq/100mL 10 MEQ/100 ML IV.SOLN. 100 MEQ IV BOLUS ×2 (22:30→23:30)
[2022-12-13] MEDS: HYDROmorphone 1 MG/ML Syringe 0.5 MG IV (23:39)
[2022-12-13] MEDS: proCHLORPERazine 10 MG/2 ML Vial 5 MG IV (23:49)
[2022-12-14] VITALS (7 sets, daily range): BP systolic 123–146; BP diastolic 76–97; PULSE 77–85; RESP 16–18; TEMP 36.4–36.9; O2SAT 95–98; BMI 31.6
[2022-12-14] MEDS: Potassium Chloride 10mEq/100mL 10 MEQ/100 ML IV.SOLN. 100 MEQ IV BOLUS ×2 (00:37→01:40)
[2022-12-14] MEDS: Haloperidol Lactate 5 MG/ML Vial 1 MG IV ×4 (02:44→21:31)
[2022-12-14] MEDS: 0.9% Normal Saline 1,000 ML 150 ML IV ×3 (04:12→18:03)
[2022-12-14 05:45] LABS: Absolute Lymphocyte Count 2.78 X10^3/uL (0.83-4.51); Basophil# 0.04 X10^3/uL; Basophil% 0.5 % (0-1); Eosinophil# 0.05 X10^3/uL; Eosinophils% 0.6 % (0-5); Hemoglobin 10.7 g/dL (12.0-15.0); Lymphocyte # 2.78 X10^3/ul (0.83-4.51); Lymphocyte % 32.3 % (19-41); Mean Corp Hgb Conc 30.6 g/dL (32-36); Mean Corpuscular Volume 85.2 fL (81-99); Mean Platelet Vol. 9.2 fl (6.2-12.0); Monocyte# 0.69 X10^3/uL; NRBC Flagged by Analyzer 0 % (0-5); Neutrophil # 5.02 X10^3/uL (2.7-7.7); Neutrophil % 58.3 % (47-70); Platelet Count 189 K/mm3 (150-450); RBC Distribution Width CV 14.4 % (11.6-14.6); RBC Distribution Width SD 44.1 fl (35.1-43.9); Red Blood Count 4.11 M/mm3 (4.2-5.4); White Blood Count 8.6 K/mm3 (4.4-11.0)
[2022-12-14 06:17] LABS: ALB/GLOB Ratio 1.1 RATIO (0.9-2.4); AST(SGOT) 8 U/L (15-37); Alanine Aminotransfer ALT/SGPT 18 U/L (13-56); Albumin, Serum 3.3 g/dL (3.2-5.0); Alkaline Phosphatase 40 U/L (45-117); Anion Gap 5 (5-15); BUN 8 mg/dL (7-18); BUN/Creat Ratio 12.6 RATIO (10-20); Chloride 112 mmol/L (98-107); Creatinine, Serum 0.63 mg/dL (0.55-1.02); EST Glomerular Filtration Rate 124 mL/min (>60); Est Glom Filt Rate - Afr Amer 150 mL/min (>60); Estimated Creatinine Clearance 146.38 ml/min; Glucose 80 mg/dL (74-106); Potassium 3.5 mmol/L (3.5-5.1); Protein, Total 6.3 g/dL (6.4-8.2); Sodium Level 138 mmol/L (136-145)
--- NOTE | 2022-12-14 07:19 | PN.HOSP_ITS ---
Reason for Visit Reason for Visit: Diagnoses Unspecified abdominal pain (12/13/22) Nausea with vomiting, unspecified (12/13/22) Subjective Subjective Patient is a 22-year-old lady with history of cyclical vomiting syndrome discharged from the hospital a day earlier following admission for nausea and vomiting and cystitis discharged on Cipro presented back to the emergency department with worsening abdominal pain in addition to nausea and vomiting presented with abdominal pain and intractable nausea and vomiting Objective Data Objective Data Vital Signs: Vital Signs Temp Pulse Resp BP Pulse Ox O2 Del Method 98.4 F 79 16 131/76 H 98 Room Air 12/14/22 03:00 12/14/22 03:00 12/14/22 03:00 12/14/22 03:00 12/14/22 03:00 12/14/22 03:00 Oxygen Delivery Method Room Air Weight: 97.1 kg Body Mass Index (BMI) 31.6 Intake & Output: Intake and Output for Last 24 Hours 12/12/22 12/13/22 12/14/22 23:59 23:59 23:59 Intake Total 1423 / 1423 1300 / 1300 Balance 1423 / 1423 1300 / 1300 Lab / Micro Data Result Diagrams: 12/14/22 05:20 12/14/22 05:20 Labs: Laboratory Results - last 24 hr 12/13/22 11:50: WBC 12.0 H, RBC 4.70, Hgb 12.8, Hct 39.7, MCV 84.5, MCH 27.2, MCHC 32.2, RDW Std Deviation 44.4 H, RDW Coeff of Roz 14.5, Plt Count 217, MPV 10.1, Immature Gran % (Auto) 0.300, Neut % (Auto) 83.2 H, Lymph % (Auto) 11.4 L, Robertson % (Auto) 4.2, Eos % (Auto) 0.6, Baso % (Auto) 0.3, Absolute Neuts (auto) 10.0 H, Absolute Lymphs (auto) 1.37, Nucleated RBC % 0 12/13/22 11:50: Sodium 139, Potassium 3.3 L, Chloride 108 H, Carbon Dioxide 21.0, Anion Gap 10, BUN 11, Creatinine 1.04 H, Estim Creat Clear Calc 88.67, Est GFR (MDRD) Af Amer 85, Est GFR (MDRD) Non-Af 70, BUN/Creatinine Ratio 10.6, Glucose 94, Calcium 9.3, Total Bilirubin 0.60, AST 11 L, ALT 23, Alkaline Phosphatase 52, Total Protein 8.0, Albumin 4.1, Globulin 3.9, Albumin/Globulin Ratio 1.1, Lipase 101 12/13/22 11:50: Magnesium 2.0 12/13/22 13:20: Urine Opiates Screen NEGATIVE, Urine Methadone Screen NEGATIVE, Ur Barbiturates Screen NEGATIVE, Ur Phencyclidine Scrn NEGATIVE, Ur Amphetamines Screen NEGATIVE, MDMA (Ecstasy) Screen NEGATIVE, U Benzodiazepines Scrn NEGATIVE, Urine Cocaine Screen NEGATIVE, U Cannabinoids Screen POSITIVE H, Ur Drug Screen Comment 12/14/22 05:20: WBC 8.6, RBC 4.11 L, Hgb 10.7 L, Hct 35.0 L, MCV 85.2, MCH 26.0 L, MCHC 30.6 L, RDW Std Deviation 44.1 H, RDW Coeff of Roz 14.4, Plt Count 189, MPV 9.2, Immature Gran % (Auto) 0.300, Neut % (Auto) 58.3, Lymph % (Auto) 32.3, Robertson % (Auto) 8.0, Eos % (Auto) 0.6, Baso % (Auto) 0.5, Absolute Neuts (auto) 5.0, Absolute Lymphs (auto) 2.78, Nucleated RBC % 0 12/14/22 05:20: Sodium 138, Potassium 3.5, Chloride 112 H, Carbon Dioxide 21.0, Anion Gap 5, BUN 8, Creatinine 0.63, Estim Creat Clear Calc 146.38, Est GFR (MDRD) Af Amer 150, Est GFR (MDRD) Non-Af 124, BUN/Creatinine Ratio 12.6, Glucose 80, Calcium 8.0 L, Total Bilirubin 0.60, AST 8 L, ALT 18, Alkaline Phosphatase 40 L, Total Protein 6.3 L, Albumin 3.3, Globulin 3.0, Albumin/Globulin Ratio 1.1 Radiography Diagnostic Testing: Radiology Impression KUB X-Ray 12/13/22 19:05 IMPRESSION: Proximal position of the Dobbhoff tube which should be advanced 30 to 40 cm. Electronically Signed: Freedom Scott MD at 19:37 EDT , Physical Exam Narrative GENERAL: cooperative HEENT: Atraumatic; normocephalic, NG tube in place EYES; Anicteric, Normal Conjunctiva NECK; supple, normal thyroid, RESPIRATORY: Diminished to auscultation CARDIOVASCULAR:? Regular S1 S2, GI:? soft, normoactive bowel sounds, : No Renal angle tenderness; EXTREMITIES:? No edema, no clubbing, MUSCULOSKELETAL:? no muscle wasting NEURO:? Awake;? no lateralizing signs. SKIN:? No Rash PSYCH; Flat? affect Assessment & Plan Assessment/Plan (1) Abdominal pain: (2) Nausea & vomiting: PLAN: Plan Patient is a 22-year-old lady with history of cyclical vomiting syndrome discharged from the hospital a day earlier following admission for nausea and vomiting and cystitis discharged on Cipro presented back to the emergency department with worsening abdominal pain in addition to nausea and vomiting presented with abdominal pain and intractable nausea vomiting 1.? Abdominal pain with intractable nausea vomiting ? Admitted to regular nursing floor for symptomatic management 2. Recent acute cystitis With pansensitive E. coli patient discharged on floor quinolones 3.? Dehydration ? Managed with IV fluid 4.? History of endometrial CA ? Currently stable 5.? DVT prophylaxis ? Low risk, encouraging ambulation 6. Cannabinoid use ? May be contributing to patient cyclical vomiting counseled on the need for cessation Time spent in the patient's overall evaluation,decision-making process, review of diagnostic data, adjustment of management, discussion with other providers, nursing nursing and ancillary staff involved in patient's care documentation, 35 minutes Charges/Coding Visit Charges Inpatient E&M: 58660 Subs Hosp L2
[2022-12-14] MEDS: HYDROmorphone 1 MG/ML Syringe 0.5 MG IV ×4 (07:45→19:56)
[2022-12-14] MEDS: levoFLOXacin IV 750 MG/150 ML BAG 100 MG IV (10:13)
[2022-12-14] MEDS: Enoxaparin 40 MG/0.4 ML Syringe SC (10:14)
[2022-12-14] MEDS: 0.9% Saline Lock 10 ML Syringe IV (16:33)
[2022-12-15] MEDS: HYDROmorphone 1 MG/ML Syringe 0.5 MG IV ×3 (00:57→10:11)
[2022-12-15] MEDS: 0.9% Normal Saline 1,000 ML 150 ML IV ×2 (01:00→08:33)
[2022-12-15 02:05] VITALS: BP 153/93; PULSE 90; RESP 16; TEMP 36.6; O2SAT 97
[2022-12-15] MEDS: Haloperidol Lactate 5 MG/ML Vial 1 MG IV ×2 (02:30→08:35)
[2022-12-15 05:48] VITALS: BMI 31.6
[2022-12-15 08:21] VITALS: BP 136/93; PULSE 99; RESP 16; TEMP 36.6; O2SAT 97
[2022-12-15 08:26] VITALS: PULSE 83
[2022-12-15] MEDS: levoFLOXacin IV 750 MG/150 ML BAG 100 MG IV (09:12)
[2022-12-15] MEDS: Enoxaparin 40 MG/0.4 ML Syringe SC (09:14)
--- NOTE | 2022-12-15 11:00 | EX.PCM.CON.G ---
HPI Consult Data Date of Consult: 12/15/22 HPI Narrative Reason for Consultation: nausea and vomiting HPI Narrative: ADDIS TORRES, is a 22 F who presented on 12/10/2022 for severe left-sided abdominal pain and intractable vomiting. She presented on 12/12/2022 for the same symptoms.? She states it is just as severe now as it was when she was here in the ER before and she has no new symptoms including urinary symptoms.? She states it started after she ate some sloppy Bogdan's with hamburger, her significant other ate this as well and he did not get any symptoms.? She has been seen here before for vomiting.? She apparently has a history of smoking marijuana but has not smoked any recently.? She denies any other drugs recently.? She had chicken noodle soup tonight, the because things do seem to get worse and she has been vomiting uncontrollably and she states that the main issue is the pain, which seems to make her then vomit more.? She has been having bowel movements, they are normal, she has been urinating and it is also normal.? She denies any pain in her back.? She denies any trouble breathing or other chest symptoms.? She denies any fevers or chills.? No travel out of the area recently or ingestion of any other suspicious foods. I requested that she have a DH tube placed. She states today that she feels very good and has not had any more nausea and vomiting since the Dobbhoff tube was placed. She had a tube removed and was able to tolerate a normal diet. [facility] Medical History (Updated 12/13/22 @ 23:[address] Patti Santos, ) Cyclic vomiting syndrome Depression Endometrial cancer History of alcohol abuse Hypertension Non-smoker PCOS (polycystic ovarian syndrome) Retained ureteral stent Ureter injury Ureteral stricture, left Home Medications ciprofloxacin HCl 500 mg tablet (Cipro) 500 mg PO BID #14 tabs 12/12/22 [Rx Last Taken Unknown] ondansetron 4 mg disintegrating tablet 4 mg PO Q8H PRN nausea and vomiting #14 tabs 12/12/22 [Rx Last Taken Unknown] Allergy/AdvReac Type Severity Reaction Status Date / Time ceftriaxone [From Rocephin] Allergy Hives Verified 12/13/22 10:41 promethazine [From Phenergan] Allergy Vomiting Verified 12/13/22 10:41 Ringer's solution,lactated Allergy Hives Verified 12/13/22 10:41 Family History (Updated 12/13/22 @ 18:[address] Sandy Solis MD) Father No problems noted. Mother Anxiety and depression GERD (gastroesophageal reflux disease) Surgical History History of hysterectomy for cancer History of renal stent Social History household members: family Smoking Status: Never smoker alcohol intake: former substance use type: marijuana and other details: No marijuana use in the last month ROS ROS Narrative Admission Review of Systems: CONSTITUTIONAL: No weight loss, fever, chills, + weakness or fatigue. HEENT: Eyes: No visual loss, blurred vision, double vision or yellow sclerae. Ears, Nose, Throat: No hearing loss, sneezing, congestion, runny nose or sore throat. SKIN: No rash or itching, lesions, wounds. CARDIOVASCULAR: No chest pain, chest pressure or chest discomfort, palpitations, edema, orthopnea, syncopal events. RESPIRATORY: No shortness of breath, cough or sputum, wheezing, hemoptysis. GASTROINTESTINAL: + anorexia, nausea, vomiting, abdominal pain, constipation. No diarrhea, melena, BRBPR. GENITOURINARY: No dysuria, frequency, urgency or retention. NEUROLOGICAL: No headache, dizziness, syncope, paralysis, ataxia, numbness or tingling in the extremities, focal weakness, change in bowel or bladder control, seizure. MUSCULOSKELETAL: + muscle, back pain, joint pain or stiffness. HEMATOLOGIC: No anemia, bleeding or bruising. LYMPHATICS: No enlarged nodes. No history of splenectomy. PSYCHIATRIC: + history of depression or anxiety. ENDOCRINOLOGIC: No reports of sweating, cold or heat intolerance. No polyuria or polydipsia. ALLERGIES: No history of asthma, hives, eczema or rhinitis. Physical Exam Narrative GENERAL: cooperative HEENT: Atraumatic; normocephalic, NG tube in place EYES; Anicteric, Normal Conjunctiva NECK; supple, normal thyroid, RESPIRATORY: Diminished to auscultation CARDIOVASCULAR:? Regular S1 S2, GI:? soft, normoactive bowel sounds, : No Renal angle tenderness; EXTREMITIES:? No edema, no clubbing, MUSCULOSKELETAL:? no muscle wasting NEURO:? Awake;? no lateralizing signs. SKIN:? No Rash PSYCH; Flat? affect Lab / Micro Data Result Diagrams: 12/14/22 05:20 12/14/22 05:20 Assessment & Plan Assessment/Plan (1) Abdominal pain: (2) Nausea & vomiting: PLAN: Plan Patient is a 22-year-old lady with history of cyclical vomiting syndrome discharged from the hospital a day earlier following admission for nausea and vomiting and cystitis discharged on Cipro presented back to the emergency department with worsening abdominal pain in addition to nausea and vomiting presented with abdominal pain and intractable nausea vomiting 1.? Abdominal pain with intractable nausea vomiting ? Admitted to regular nursing floor for symptomatic management 2. Recent acute cystitis With pansensitive E. coli patient discharged on floor quinolones 3.? Dehydration ? Managed with IV fluid 4.? History of endometrial CA ? Currently stable 5.? DVT prophylaxis ? Low risk, encouraging ambulation 6. Cannabinoid use ? May be contributing to patient cyclical vomiting counseled on the need for cessation If patient is tolerating a diet she can be discharged home Protonix 40 mg p.o. twice daily and follow-up in a clinic for further work-up. Charges/Coding Visit Charges Inpatient E&M: 29626 Init Hosp L3
[2022-12-15 11:14] VITALS: BP 141/91; PULSE 113; RESP 16; TEMP 36.8; O2SAT 100
--- NOTE | 2022-12-15 11:46 | CASEMGMT ---
EMY MAI Assessment: Face to Face with pt for initial transition planning/care coordination assessment. EMY MAI introduced self and role at [facility], pt voices understanding and consents to assessment. Pt is A/O x4 and answers all questions appropriately at this time. Pt sitting up in bed in no distress with fiance at bedside and mother came into room mid assessment. Care providers, pharmacy, and demographics verified/updated. Admitting Dx: intractable N/V PCP:Imer- Pt states her primary care practices under but she is not sure the name. Specialists:shaylee Barahona Preferred Pharmacy: [facility] [place] Insurance: [employer] Prescription Benefit: yes LNOK: Angelica Talley, mother Living Arrangements: Pt lives with finorma in a single story home with 1 step to enter. Pt reports she is I in ADL's and denies concerns at home. Transportation: Pt does not drive. Pt mother provides transportation to medical appts. DME/HHC/SNF: Pt denies having any DME in the home. Pt has had [facility] in the past and denies SNF stays. Pt states no concerns with going home at time of dc. Pt states no further concerns/needs. CM to follow. Advised pt to ask CM if any further question/concerns/needs arise, voices understanding. Pt Goal: Home Plan: Home
[2022-12-15 15:21] VITALS: BP 140/90; PULSE 101; RESP 16; TEMP 37.1; O2SAT 99
--- NOTE | 2022-12-15 15:31 | DCINST_ITS ---
Discharge Instructions Diet Discharge Diet: No restrictions Activity Discharge Activity: Return to Normal Activity Weight Bearing Status: Full weight bearing Follow Up Care Test Results: Test results from this visit will be discussed in further detail at your follow- up appointment, if applicable. Discharge Plan Admission Admit Date/Time: 12/13/22 16:40 Primary Reason for Your Visit: nausea and vomiting Attending Provider: Junior Rowell Primary Care Provider: Tj Willams Consulting Providers: Sandy Solis ; Hao Fatima ; Francisco Gunn Instructions Additional Instructions / Restrictions: Avoid cannabis usage Discharge Orders/Prescriptions Prescriptions: Continued ciprofloxacin HCl [Cipro] 500 mg tablet 500 mg PO BID Qty: 14 0RF ondansetron 4 mg tablet,disintegrating 4 mg PO Q8H PRN (Reason: nausea and vomiting) Qty: 14 0RF Referrals / Follow Up: Tj Willams MD [Primary Care Provider] - Within 2 Weeks Care Physician,No Primary [Non-Staff] - Disposition Disposition (needs filled in before D/C Order can be placed): Home, Self Care
--- NOTE | 2022-12-15 15:33 | PCM.DC.SUM ---
Providers Date of Admission: 12/13/22 Date of Discharge: 12/15/22 Primary Care Physician: Dr. Tj Willams MD Consultations 12/13/22 20:25 Consult: Gastroenterology Routine Consulting Provider: VeliaFrancisco Reason for Consult: Intractable N/V EMERGENT Consult: No MD Notified: Yes Date Notified: 12/13/22 Time Notified: 16:46 Method of Notification: Verbal Reason For Visit: INTRACTABLE N/V Diagnosis Discharge Diagnosis (1) Abdominal pain: Status: Resolved Code(s): R10.9 - Unspecified abdominal pain (2) Nausea & vomiting: Status: Inactive Code(s): R11.2 - Nausea with vomiting, unspecified Plan 1. Abdominal pain with intractable nausea and vomiting #2 cystitis present on admission #3 dehydration #4 chronic cannabinol use #5 hypokalemia Medications at Discharge Home Medications ciprofloxacin HCl 500 mg tablet (Cipro) 500 mg PO BID #14 tabs 12/12/22 ondansetron 4 mg disintegrating tablet 4 mg PO Q8H PRN nausea and vomiting #14 tabs 12/12/22 metoclopramide HCl 10 mg tablet (Reglan) 10 mg PO Q6H PRN nausea and vomiting #12 tabs 12/22/22 Hospital Course Operations None Procedures None Summary of Care Provided Minutes Spent on Discharge: 31 Hospital Course: This 22-year-old white female was seen in the emergency room at [facility] with chief complaint of intractable nausea and vomiting along with vague abdominal pain. Work-up in the ER included a CT scan of the abdomen and pelvis which showed mild to moderate constipation, minimal diverticulosis, no hydronephrosis, and mild gallbladder wall thickening. Chemistry obtained in the emergency room showed an elevated creatinine and a potassium of 3.3. Labs showed an elevated white blood cell count at 12. Patient was admitted to [place] [address] for intractable nausea and vomiting, she was seen in consultation by gastroenterology, she was maintained on antibiotics due to her outpatient diagnosis of cystitis. Patient's symptoms improved during her hospital stay, she was cautioned against routine cannabinoid use. On 12/15/2022, patient was seen and examined: On examination she appeared in good health and spirits, she does not appear to be in any distress. Vital signs as documented. Skin warm and dry and without overt rashes. Neck without JVD, thyroid appears normal, trachea is midline, neck is supple. Lungs clear, normal air movement was noted. Heart exam notable for regular rhythm, normal sounds and absence of murmurs, rubs or gallops. Abdomen unremarkable and without evidence of organomegaly, masses, or abdominal aortic enlargement, bowel sounds are present in all 4 quadrants, no abdominal tenderness was noted. Extremities nonedematous, no cyanosis was noted, no clubbing was noted. Neuro: Cranial nerves II through XII are grossly intact, no focal motor deficits were noted, sensation to light touch and pinprick is intact, motor exam 5/5 throughout. Psych: Patient is alert and oriented x3, she does not appear anxious or depressed, she does not appear agitated. On 12/15/2022, patient was seen and examined and felt to be in stable condition for discharge home Weight / BMI Weight Weight: 97.2 kg Body Mass Index (BMI) 31.6 ABG / Lab / Microbiology Data Result Diagrams: 12/14/22 05:20 12/14/22 05:20 D/C Instructions Discharge Diet: No restrictions Weight Bearing Status: Full weight bearing Meaningful Use Info Meaningful Use Diagnoses (Choose all that apply): None applicable Discharge Plan Admission Admit Date/Time: 12/13/22 16:40 Primary Reason for Your Visit: nausea and vomiting Attending Provider: Junior Rowell Primary Care Provider: Tj Willams Consulting Providers: Sandy Solis ; Hao Fatima ; Friend,Francisco Instructions Additional Instructions / Restrictions: Avoid cannabis usage Discharge Orders/Prescriptions Prescriptions: Continued ciprofloxacin HCl [Cipro] 500 mg tablet 500 mg PO BID Qty: 14 0RF ondansetron 4 mg tablet,disintegrating 4 mg PO Q8H PRN (Reason: nausea and vomiting) Qty: 14 0RF No Action metoclopramide HCl [Reglan] 10 mg tablet 10 mg PO Q6H PRN (Reason: nausea and vomiting) Qty: 12 0RF Referrals / Follow Up: Tj Willams MD [Primary Care Provider] - 12/29/22 2:20 pm Care Physician,No Primary [Non-Staff] - Disposition Disposition (needs filled in before D/C Order can be placed): Home, Self Care Charges/Coding Visit Charges Inpatient E&M: 00755 Disch Hosp >30min
== END 2022-12-15 15:54 | disposition home or self-care (01) | DRG 422 ==
LOC: ED 12:15 → MS3 18:16
PROVIDERS: Admitting Provider Family Medicine; Emergency Provider Emergency Medicine; PCP Family Medicine; Visit Provider Internal Medicine
DX: E86.0 Dehydration (principal); E87.6 Hypokalemia; I10 Essential (primary) hypertension; F41.9 Anxiety disorder, unspecified; R11.2 Nausea with vomiting, unspecified; N30.00 Acute cystitis without hematuria; B96.20 Unspecified Escherichia coli [E. coli] as the cause of diseases classified elsewhere; F32.A Depression, unspecified; Z85.89 Personal history of malignant neoplasm of other organs and systems; R10.9 Unspecified abdominal pain
CPT/HCPCS: 36415; 74018; 74177; 80053; 80307; 83690; 83735; 84100; 84443; 85025; 94668; 96361; 96365; 96366; 96367; 96372; 96375; 96376; 97802; 99221; 99283; 99285; 99406; J7030; Q9967; A4216; G0378; J2405; J3490

== ENCOUNTER 2022-12-22 01:12 | Emergency (ER) | payer MEDICAID, SELFPAY ==
[2022-12-22 01:13] VITALS: BP 151/99; PULSE 112; RESP 18; TEMP 36.6; O2SAT 100; BMI 31.3
[2022-12-22 01:46] LABS: Absolute Lymphocyte Count 1.69 X10^3/uL (0.83-4.51); Absolute Neutrophil Count 13.8 X10^3/uL (2.0-7.7); Basophil# 0.05 X10^3/uL; Basophil% 0.3 % (0-1); Eosinophils% 0.6 % (0-5); Hematocrit 43.4 % (37-47); Hemoglobin 14.2 g/dL (12.0-15.0); Lymphocyte # 1.69 X10^3/ul (0.83-4.51); Lymphocyte % 10.5 % (19-41); Mean Corp Hgb Conc 32.7 g/dL (32-36); Mean Corpuscular Hgb 26.9 pg (27.0-32.0); Mean Corpuscular Volume 82.4 fL (81-99); Mean Platelet Vol. 9.1 fl (6.2-12.0); Monocyte% 3.1 % (0-10); NRBC Flagged by Analyzer 0 % (0-5); Neutrophil # 13.75 X10^3/uL (2.7-7.7); Neutrophil % 85.1 % (47-70); Platelet Count 284 K/mm3 (150-450); RBC Distribution Width CV 15.1 % (11.6-14.6); RBC Distribution Width SD 45.1 fl (35.1-43.9); Red Blood Count 5.27 M/mm3 (4.2-5.4); White Blood Count 16.2 K/mm3 (4.4-11.0)
[2022-12-22] MEDS: Ondansetron 4 MG/2 ML Vial IV (01:46)
[2022-12-22] MEDS: Famotidine 200 MG/20 ML MDV 20 MG in 0.9% Normal Saline (Pres. free 8 ML 300 MG IV (01:50)
[2022-12-22] MEDS: 0.9% Normal Saline 1,000 ML 1000 ML IV (01:50)
[2022-12-22] MEDS: LORazepam 2 MG/ML Syringe 0.5 MG IV (01:50)
--- NOTE | 2022-12-22 02:03 | EX.ED.DYSGE1 ---
HPI History of Present Illness Chief Complaint: Nausea/Vomiting Narrative Narrative: Patient returns with nausea and vomiting. Patient has a history of cyclic vomiting syndrome going back about 2-1/2 years. This all seemed to start after she had surgery for what sounds like endometrial cancer. She had ureteral injury and had reconstruction and stents. Since then she has had intermittent episodes with the vomiting and abdominal pain. The last few weeks she has had more symptoms. She was actually just in the hospital and discharged. She ate a hamburger tonight. Shortly after that she vomited. They think there might have been some blood streaked in the vomitus. They showed me a picture that looked like a little red line through some of the vomitus. But most of it did look like a material that very well could have been partially digested hamburger. It was not at all black. They have never seen black. They have not seen black or bloody stools. She has not had fevers or chills. She has abdominal soreness all over. She mostly has dry heaves. She denies using any marijuana at all. She states she has never smoked marijuana but did smoke CBD oil. PFSH PFS Medical History Cyclic vomiting syndrome Depression Endometrial cancer History of alcohol abuse Hypertension Non-smoker PCOS (polycystic ovarian syndrome) Retained ureteral stent Ureter injury Ureteral stricture, left Home Medications ciprofloxacin HCl 500 mg tablet (Cipro) 500 mg PO BID #14 tabs 12/12/22 [Rx Last Taken Unknown] ondansetron 4 mg disintegrating tablet 4 mg PO Q8H PRN nausea and vomiting #14 tabs 12/12/22 [Rx Last Taken Unknown] metoclopramide HCl 10 mg tablet (Reglan) 10 mg PO Q6H PRN nausea and vomiting #12 tabs 12/22/22 [Rx Last Taken Unknown] Allergy/AdvReac Type Severity Reaction Status Date / Time ceftriaxone [From Rocephin] Allergy Hives Verified 12/13/22 10:41 promethazine [From Phenergan] Allergy Vomiting Verified 12/13/22 10:41 Ringer's solution,lactated Allergy Hives Verified 12/13/22 10:41 Family History Father No problems noted. Mother Anxiety and depression GERD (gastroesophageal reflux disease) Surgical History History of hysterectomy for cancer History of renal stent Social History household members: family Smoking Status: Never smoker alcohol intake: former substance use type: marijuana and other details: No marijuana use in the last month ROS ROS ED Constitutional Constitutional ED: Denies chills or fever(s) ENT ENT ED: Denies rhinorrhea or sore throat Cardiovascular Cardiovascular: Denies chest pain Respiratory/Chest Respiratory/Chest: Denies cough or dyspnea Gastrointestinal Gastrointestinal: Reports abdominal pain, nausea and vomiting; Denies constipation, diarrhea or melena Genitourinary Genitourinary ED: Denies dysuria Musculoskeletal Musculoskeletal: Denies back pain or myalgias Integumentary Denies rash Neurologic Neurologic: Denies headache(s) Psychiatric Psychiatric: Reports anxiety Hematologic/Lymphatic Hematologic/Lymphatic: Denies easy bleeding or easy bruising Allergic/Immunologic Allergic/Immunologic ED: Denies urticaria EXAM Physical Exam Narrative Exam Narrative: Patient is awake alert. She is sitting upright in the bed holding an emesis bag. She is dry heaving but there is no vomitus in the bag at this time. HEENT shows moist mucous membranes. No abnormal findings intraorally. Neck is supple Bilateral lungs are clear. No hypoxia. Heart is regular but is mildly tachycardic. No murmur. Abdomen is soft. There is mild nonfocal tenderness but no rebound guarding or mass. shows no CVA tenderness Extremities show no rash or pallor. Const Vital Signs: 12/22/22 01:13 12/22/22 03:34 12/22/22 05:28 Temperature 97.9 F Temperature Source Temporal Pulse Rate 112 H 108 H 88 Respiratory Rate 18 18 18 Blood Pressure 151/99 H 150/95 H 116/70 Blood Pressure Mean 116 113 85 Pulse Ox 100 95 98 Oxygen Delivery Method Room Air Room Air Room Air MDM MDM MDM Narrative Medical decision making narrative: Patient initially got some benefit from Zofran but now she is getting dry heaves back. She did vomit about 100 cc of contents that was liquid. No blood. We will go on to stage II of cyclic vomiting order protocol. Patient CBC does show mild elevation white count. This may be demargination. She does not have a fever at this time. Electrolytes show no marked abnormalities in including normal BUN and creatinine. Glucose is minimally up at 112. Lactic acid was high at 3.2. She is given IV fluids. Liver function test showed no marked abnormalities. Urine is pending. I went over the history again with her and her mother. Her original surgery they think was about 2-1/2 years ago or may have been 3. She did have revision surgery for ureteral stricture and has no stent in anymore. She seems to do well until she eats. Her mother states if she eats 1 bite too much she gets into 1 of these episodes of nausea and vomiting. This time it was a hamburger. Time before was a sloppy Bogdan. We did discuss trying to eat some gentle food. The high meat high-protein high-fat foods may not sit well with her. Patient is not responding to therapy here. She is complaining of pain all over in the abdomen. With her elevated white count, elevated lactate, recurrent symptoms not responding to therapy I will CT her abdomen again. She is already been scanned this month. Prior to that it had been about a year since she had a scan. My independent interpretation of the patient's CT of the abdomen shows no acute process. No sign of obstruction or ileus. Final reading does see some mild bladder wall thickening which has been seen before. But the patient has no symptoms or findings of UTI. Her urinalysis shows no sign of infection. I rechecked the patient after the CT finding. She has been resting. She states she feels groggy and she is feeling better. She thinks the nausea is better but not 100% gone. But she is not having pain. I discussed that we will try giving her a dose of sumatriptan as this has been shown to be effective in some people with cyclic vomiting. Clinically she is looking much better at this time. I hope we can get her home. Patient got up with her mom. She walked to the bathroom. She states she feels groggy from the medicines but she is better. She still having some cramping in the abdomen but is not really painful now. She states the nausea is better. Mom and her feel like they should just get her home so she can rest in her own bed. I think that is reasonable. She did go to the bathroom and urinate. We did give her IV fluids because of the elevated lactate. But her CT shows no acute process. She has had this is a recurrent issue for couple years. We would like to try to manage this as an outpatient. If she is not improving we may need to get her in the hospital but we will try as an outpatient at this point. I talked about Reglan. Mom thinks she might of had that a long time ago. They do not think she had any relaxation to it. So we will try a prescription of Reglan to see if it helps. Although its not on her med list, she is on Protonix and Zofran. She does have Zofran at home. Patient vomited about 100 cc of liquid shortly after she got here. But she has had no vomiting since and she has been here for about 5 hours. Lab Data Attestation: I reviewed the patient's lab results. Labs: Laboratory Results - last 24 hr 12/22/22 12/22/22 12/22/22 01:39 01:39 01:57 WBC 16.2 H RBC 5.27 Hgb 14.2 Hct 43.4 MCV 82.4 MCH 26.9 L MCHC 32.7 RDW Std Deviation 45.1 H RDW Coeff of Roz 15.1 H Plt Count 284 MPV 9.1 Immature Gran % (Auto) 0.400 Neut % (Auto) 85.1 H Lymph % (Auto) 10.5 L [place] % (Auto) 3.1 Eos % (Auto) 0.6 Baso % (Auto) 0.3 Absolute Neuts (auto) 13.8 H Absolute Lymphs (auto) 1.69 Nucleated RBC % 0 Sodium 136 Potassium 4.5 Chloride 107 Carbon Dioxide 23.0 Anion Gap 6 BUN 9 Creatinine 0.94 Estim Creat Clear Calc 98.11 Est GFR (MDRD) Af Amer 96 Est GFR (MDRD) Non-Af 79 BUN/Creatinine Ratio 9.6 L Glucose 112 H Lactic Acid 3.2 H* Calcium 9.6 Total Bilirubin 0.40 AST 36 ALT 28 Alkaline Phosphatase 64 Total Protein 8.6 H Albumin 4.3 Globulin 4.3 H Albumin/Globulin Ratio 1.0 Lipase 40 Urine Color Urine Clarity Urine pH Ur Specific [place] Urine Protein Urine Glucose (UA) Urine Ketones Urine Occult Blood Urine Nitrite Urine Bilirubin Urine Urobilinogen Ur Leukocyte Esterase Urine RBC Urine WBC Ur Squamous Epith Cells Urine Bacteria Urine Mucus Urine Opiates Screen Urine Methadone Screen Ur Barbiturates Screen Ur Phencyclidine Scrn Ur Amphetamines Screen MDMA (Ecstasy) Screen U Benzodiazepines Scrn Urine Cocaine Screen U Cannabinoids Screen Ur Drug Screen Comment 12/22/22 12/22/22 03:14 03:14 WBC RBC Hgb Hct MCV MCH MCHC RDW Std Deviation RDW Coeff of Roz Plt Count MPV Immature Gran % (Auto) Neut % (Auto) Lymph % (Auto) [place] % (Auto) Eos % (Auto) Baso % (Auto) Absolute Neuts (auto) Absolute Lymphs (auto) Nucleated RBC % Sodium Potassium Chloride Carbon Dioxide Anion Gap BUN Creatinine Estim Creat Clear Calc Est GFR (MDRD) Af Amer Est GFR (MDRD) Non-Af BUN/Creatinine Ratio Glucose Lactic Acid Calcium Total Bilirubin AST ALT Alkaline Phosphatase Total Protein Albumin Globulin Albumin/Globulin Ratio Lipase Urine Color Yellow Urine Clarity Clear Urine pH 8.0 Ur Specific [place] 1.015 Urine Protein 30 H Urine Glucose (UA) Normal Urine Ketones 15 H Urine Occult Blood Negative Urine Nitrite Negative Urine Bilirubin Negative Urine Urobilinogen Normal Ur Leukocyte Esterase Negative Urine RBC 0 SEEN Urine WBC 0 SEEN Ur Squamous Epith Cells 0 SEEN Urine Bacteria 0 SEEN Urine Mucus 0 SEEN Urine Opiates Screen NEGATIVE Urine Methadone Screen NEGATIVE Ur Barbiturates Screen NEGATIVE Ur Phencyclidine Scrn NEGATIVE Ur Amphetamines Screen NEGATIVE MDMA (Ecstasy) Screen NEGATIVE U Benzodiazepines Scrn NEGATIVE Urine Cocaine Screen NEGATIVE U Cannabinoids Screen POSITIVE H Ur Drug Screen Comment Radiography Diagnostic Testing: Clinical Impression(s) from Imaging Studies Abdomen/Pelvis CT 12/22/22 03:37 IMPRESSION: Mild nonspecific bladder wall thickening which can be seen with cystitis in the appropriate setting No other acute finding. Electronically Signed: Lauro Barboza MD at 4:53 EDT Reading Location ID and State: [facility] / ID Tel , Service support , Discharge Plan Triage Chief Complaint: Nausea/Vomiting ED Provider: Hakeem Silva Dx/Rx/DC Orders Clinical Impression: Cyclic vomiting syndrome Instructions: ED Cyclic Vomiting Syndrome Prescriptions: New metoclopramide HCl [Reglan] 10 mg tablet 10 mg PO Q6H PRN (Reason: nausea and vomiting) Qty: 12 0RF No Action ciprofloxacin HCl [Cipro] 500 mg tablet 500 mg PO BID Qty: 14 0RF ondansetron 4 mg tablet,disintegrating 4 mg PO Q8H PRN (Reason: nausea and vomiting) Qty: 14 0RF Primary Care Provider: Tj Willams Referrals: Tj Willams MD [Primary Care Provider] - 3-5 Days Disposition Disposition: Home, Self Care
[2022-12-22 02:14] LABS: AST(SGOT) 36 U/L (15-37); Alanine Aminotransfer ALT/SGPT 28 U/L (13-56); Albumin, Serum 4.3 g/dL (3.2-5.0); Alkaline Phosphatase 64 U/L (45-117); Anion Gap 6 (5-15); BUN 9 mg/dL (7-18); BUN/Creat Ratio 9.6 RATIO (10-20); Calcium,Total 9.6 mg/dL (8.5-10.1); Chloride 107 mmol/L (98-107); Creatinine, Serum 0.94 mg/dL (0.55-1.02); EST Glomerular Filtration Rate 79 mL/min (>60); Est Glom Filt Rate - Afr Amer 96 mL/min (>60); Estimated Creatinine Clearance 98.11 ml/min; Globulin 4.3 g/dL (2.2-4.2); Glucose 112 mg/dL (74-106); Lipase 40 U/L (13-75); Potassium 4.5 mmol/L (3.5-5.1); Protein, Total 8.6 g/dL (6.4-8.2); Sodium Level 136 mmol/L (136-145)
[2022-12-22 03:03] LABS: Lactic Acid 3.2 mmol/L (0.4-1.9)
[2022-12-22 03:20] LABS: Bacteria 0 SEEN /hpf (None Seen); Mucous, Urine 0 SEEN /hpf (<or=2+); Red Blood Cells-Urine 0 SEEN /hpf (0-5); Squamous Epithelial Cells - UA 0 SEEN /hpf (5-10); White Blood Cells 0 SEEN /hpf (0-5)
[2022-12-22] MEDS: 0.9% Normal Saline 1,000 ML 999 ML IV (03:21)
[2022-12-22 03:22] LABS: Glucose, Dipstick Normal (Normal); Ketone-Dipstick 15 mg/dl (Negative); Leukocyte Esterase-Dipstick Negative /ul (Negative); Nitrite-Dipstick Negative (Negative); Occult Blood-Urine Negative /ul (Negative); Protein-Dipstick 30 mg/dl (Negative); Specific Gravity, Urine 1.015 (1.002-1.030); Urine Bilirubin Dipstick Negative (Negative); Urine Urobilinogen Normal (Normal)
[2022-12-22 03:24] LABS: Color, Urine Yellow (Yellow); Urine Clarity Clear (Clear)
[2022-12-22 03:34] VITALS: BP 150/95; PULSE 108; RESP 18; O2SAT 95
--- NOTE | 2022-12-22 03:37 | CT_ITS ---
INDICATION: pain EXAMINATION: CT ABDOMEN AND PELVIS WITH CONTRAST - CT Abdomen And Pelvis W/ Contrast Injection TECHNIQUE: Helically acquired images were obtained of the abdomen and pelvis following IV contrast. A radiation dose optimization technique was used for this scan. IV Contrast dosage and agent: 100 mL [id number]-370 Oral contrast: None. COMPARISON: None. FINDINGS: LOWER CHEST: Lung bases are clear. No cardiomegaly or pericardial effusion. LIVER: Homogeneous. No focal mass. GALLBLADDER AND BILIARY TREE: No calcified gallstones. No gallbladder distension or wall edema. No intra- or extrahepatic biliary ductal dilation. PANCREAS: No focal cystic or solid mass. SPLEEN: Normal size without focal cystic or solid mass. ADRENAL GLANDS: No nodules. KIDNEYS AND URETERS: Normal renal size and position. No hydronephrosis. PERITONEUM: No ascites or free air. No other fluid collection. BOWEL: No evidence of acute appendicitis. No stomach or bowel distension. No focal inflammatory change. LYMPH NODES: No enlarged mesenteric or retroperitoneal lymph nodes. VESSELS: Aorta is non-dilated. URINARY BLADDER: Mild increased bladder wall thickening and trace adjacent stranding compared to prior CT with similar degree of filling. REPRODUCTIVE ORGANS: Absent uterus. Symmetric ovaries with small follicles.. ABDOMINAL WALL: No discrete abdominal or pelvic wall hernia. BONES: No lytic or blastic abnormality. CT/Abdomen/Pelvis W IV Cont ONLY IMPRESSION: Mild nonspecific bladder wall thickening which can be seen with cystitis in the appropriate setting No other acute finding. Electronically Signed: Lauro Barboza MD at 4:53 EDT ,
[2022-12-22] MEDS: Morphine 4 MG/ML Syringe IV (03:44)
[2022-12-22 04:03] LABS: Amphetamine Urine VISTA NEGATIVE (<1000 ng/mL); Barbiturate Urine VISTA NEGATIVE (< 200 ng/mL); Benzodiazepine Urine VISTA NEGATIVE (< 200 ng/mL); Cocaine Urine VISTA NEGATIVE (< 300 ng/mL); Ecstacy Urine VISTA NEGATIVE (< 500 ng/mL); Methadone Urine VISTA NEGATIVE (< 300 ng/mL); PCP Urine VISTA NEGATIVE (< 25 ng/mL); THC Urine VISTA POSITIVE (< 50 ng/mL); Vista UDS pH Range 8
[2022-12-22 05:28] VITALS: BP 116/70; PULSE 88; RESP 18; O2SAT 98
[2022-12-22] MEDS: SUMAtriptan 6 MG/0.5 ML Vial SC (05:36)
[2022-12-22 06:00] LABS: Reflex Lactate? Y
== END 2022-12-22 06:18 | disposition home or self-care (01) ==
PROVIDERS: Emergency Provider Emergency Medicine; PCP Family Medicine; Visit Provider Emergency Medicine
DX: R11.15 Cyclical vomiting syndrome unrelated to migraine (principal); I10 Essential (primary) hypertension; F17.200 Nicotine dependence, unspecified, uncomplicated; R93.41 Abnormal radiologic findings on diagnostic imaging of renal pelvis, ureter, or bladder
CPT/HCPCS: 83605; Q9967; 74177; J2405; 96375; J7030; 96365; 99282; J3030; 81001; 83690; 96361; 96372; 80053; 80307; 85025; A4216; J3490

== ENCOUNTER 2022-12-23 10:30 | Inpatient (IN) | payer MEDICAID, SELFPAY ==
[2022-12-23 10:30] VITALS: BP 150/108; PULSE 115; RESP 18; TEMP 37; O2SAT 100
--- NOTE | 2022-12-23 11:00 | EDS_ITS ---
HPI HPI - GI History of Present Illness Chief Complaint: Abd Pain Narrative Narrative: 22-year-old female presents to the emergency department for the fourth time in a week according to her for epigastric pain and vomiting. She states that the pain is so severe in the epigastrium that she vomits. She has had CT scans in the past and was admitted for few days because of all the vomiting. These of the same symptoms that she has had in the past. 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 She complains of epigastric pain and multiple episodes of vomiting. No exacerbating or alleviating factors. [facility] PFS Medical History Cyclic vomiting syndrome Depression Endometrial cancer History of alcohol abuse Hypertension Non-smoker PCOS (polycystic ovarian syndrome) Retained ureteral stent Ureter injury Ureteral stricture, left Ureterolithiasis Home Medications ciprofloxacin HCl 500 mg tablet (Cipro) 500 mg PO BID #14 tabs 12/12/22 [Rx Last Taken Unknown] ondansetron 4 mg disintegrating tablet 4 mg PO Q8H PRN nausea and vomiting #14 tabs 12/12/22 [Rx Last Taken Unknown] metoclopramide HCl 10 mg tablet (Reglan) 10 mg PO Q6H PRN nausea and vomiting #12 tabs 12/22/22 [Rx Last Taken Unknown] Allergy/AdvReac Type Severity Reaction Status Date / Time ceftriaxone [From Rocephin] Allergy Hives Verified 12/23/22 10:32 promethazine [From Phenergan] Allergy Vomiting Verified 12/23/22 10:32 Ringer's solution,lactated Allergy Hives Verified 12/23/22 10:32 Family History Father No problems noted. Mother Anxiety and depression GERD (gastroesophageal reflux disease) Surgical History History of hysterectomy for cancer History of renal stent Social History household members: family Smoking Status: Never smoker alcohol intake: former substance use type: marijuana and other details: No marijuana use in the last month ROS ROS ED ROS Narrative Constitutional: No fever, no chills. HEENT: No sore throat. No neck pain. No loss of vision. No rhinorrhea. Cardiovascular: No chest pain. No palpitations. No pedal edema. Respiratory: No cough, no shortness of breath. Abdominal: Epigastric abdominal pain. Multiple episodes of nausea and vomiting, nonbloody. Genitourinary: No dysuria. No hematuria. Musculoskeletal: No myalgias. No arthralgias. Neurologic: No headaches. No dizziness. No lightheadedness. Skin: No rash. No change in color. Psychiatric: No depression. No anxiety. EXAM Physical Exam Narrative Exam Narrative: Afebrile. Vital signs noted. HEENT: Normocephalic. Atraumatic. PERRL, EOMI. Neck soft and supple. No point tenderness or step off. Cardiovascular: Positive tachycardia no murmurs, rubs, or gallops appreciated. Respiratory: No tachypnea. Lungs clear to auscultation bilaterally. Gastrointestinal: Abdomen soft, tenderness to palpation in epigastrium, with normoactive bowel sounds. No rebound or guarding. Holding a bag full of nonbloody emesis. Neurological: Awake. Alert. Nonfocal, nonlateralizing. Skin: No rash. Normal color. No pallor. Musculoskeletal: No pedal edema. Full range of motion extremities. Const Vital Signs: 12/23/22 10:30 Temperature 98.6 F Temperature Source Temporal Pulse Rate 115 H Respiratory Rate 18 Blood Pressure 150/108 H Blood Pressure Mean 122 Pulse Ox 100 Oxygen Delivery Method Room Air MDM MDM MDM Narrative Medical decision making narrative: I reviewed the patient's prior records and ED visits. She has had CT scanning in the past that is negative. I do not feel that another CT imaging of the abdomen would be of benefit. It seems that she has more cyclic vomiting and occasional CBD oil/marijuana use. I will ask her if she has used recently since her last visit, but regardless she will be treated symptomatically. She is supposed to be taking Reglan at home and supposedly has ondansetron at home. Here she will be bolused for her tachycardia and suspected dehydration and lactic acidosis as it has been elevated in the past. She will be given haloperidol 2 mg intravenously for cyclic vomiting. I reviewed her laboratory work and she has an elevated white count of 12.5, but this is down from the leukocytosis from yesterday. I do think this may be demargination from her continued vomiting. Hemoglobin is normal at 13.1, hematocrit 42.5, platelet count normal at 228. Her initial laboratory work otherwise was hemolyzed so a redraw needed to be performed. In review of her lactic acid, it is normal at 1.9, down from previous when it was elevated at 2 or 3 which may have been from dehydration. CMP shows normal sodium of 140 with chloride elevated at 111. Normal potassium. Lipase is normal at 28. Upon repeat examination, she states that she is still having pain and feels no better. I discussed with her her use of cannabinoids, and she states she uses THC not CBD or marijuana. I do not feel that narcotic pain medication is indicated. She will be given Bentyl 20 mg intramuscularly. I reviewed her ED visit from yesterday, and there was talk of admitting her. I will discuss patient with Dr. Gunn with gastroenterology. He states that he thinks that she should be brought in for endoscopy as the last time he saw her, he did not perform this. He had inserted a Dobbhoff which seemed to have resolved her issues. I then discussed the patient with Dr. Reid with hospitalist medicine for observation. Disposition is assigned to observation. Patient is in stable condition. History & Record Review Discussion w/independent historian: Patient Additional record(s) reviewed:: Prior ED visit (Seen multiple times, usually has lactic acidosis, admits to marijuana use on occasion or smoking CBD oil. Cyclic vomiting) Lab Data Attestation: I reviewed the patient's lab results. Labs: Laboratory Results - last 24 hr 12/23/22 12/23/22 12/23/22 11:45 11:45 11:55 WBC 12.5 H RBC 4.94 Hgb 13.1 Hct 42.5 MCV 86.0 MCH 26.5 L MCHC 30.8 L D RDW Std Deviation 47.7 H RDW Coeff of Roz 15.1 H Plt Count 228 MPV 9.0 Immature Gran % (Auto) 0.300 Neut % (Auto) 82.6 H Lymph % (Auto) 11.4 L [place] % (Auto) 4.4 Eos % (Auto) 1.0 Baso % (Auto) 0.3 Absolute Neuts (auto) 10.3 H Absolute Lymphs (auto) 1.43 Nucleated RBC % 0 Sodium Cancelled Potassium Cancelled Chloride Cancelled Carbon Dioxide Cancelled Anion Gap Cancelled BUN Cancelled Creatinine Cancelled Estim Creat Clear Calc Cancelled Est GFR (MDRD) Af Amer Cancelled Est GFR (MDRD) Non-Af Cancelled BUN/Creatinine Ratio Cancelled Glucose Cancelled Lactic Acid Cancelled Calcium Cancelled Total Bilirubin Cancelled AST Cancelled ALT Cancelled Alkaline Phosphatase Cancelled Total Protein Cancelled Albumin Cancelled Globulin Cancelled Albumin/Globulin Ratio Cancelled Lipase Cancelled 12/23/22 12/23/22 12:50 12:50 WBC RBC Hgb Hct MCV MCH MCHC RDW Std Deviation RDW Coeff of Roz Plt Count MPV Immature Gran % (Auto) Neut % (Auto) Lymph % (Auto) [place] % (Auto) Eos % (Auto) Baso % (Auto) Absolute Neuts (auto) Absolute Lymphs (auto) Nucleated RBC % Sodium 140 Potassium 3.8 Chloride 111 H Carbon Dioxide 23.0 Anion Gap 6 BUN 7 Creatinine 0.87 Estim Creat Clear Calc 106.00 Est GFR (MDRD) Af Amer 104 Est GFR (MDRD) Non-Af 86 BUN/Creatinine Ratio 8.1 L Glucose 100 Lactic Acid 1.9 Calcium 8.8 Total Bilirubin 0.50 AST 21 ALT 23 Alkaline Phosphatase 53 Total Protein 7.3 Albumin 3.9 Globulin 3.4 Albumin/Globulin Ratio 1.1 Lipase 28 Discharge Plan Triage Chief Complaint: Abd Pain ED Provider: Kevin San Dx/Rx/DC Orders Clinical Impression: Cyclical vomiting Prescriptions: No Action ciprofloxacin HCl [Cipro] 500 mg tablet 500 mg PO BID Qty: 14 0RF ondansetron 4 mg tablet,disintegrating 4 mg PO Q8H PRN (Reason: nausea and vomiting) Qty: 14 0RF metoclopramide HCl [Reglan] 10 mg tablet 10 mg PO Q6H PRN (Reason: nausea and vomiting) Qty: 12 0RF Primary Care Provider: Tj Willams Referrals: Tj Willams MD [Primary Care Provider] -
[2022-12-23 11:23] VITALS: BMI 31.6
[2022-12-23 11:55] LABS: Absolute Lymphocyte Count 1.43 X10^3/uL (0.83-4.51); Absolute Neutrophil Count 10.3 X10^3/uL (2.0-7.7); Basophil# 0.04 X10^3/uL; Basophil% 0.3 % (0-1); Eosinophil# 0.12 X10^3/uL; Hematocrit 42.5 % (37-47); Hemoglobin 13.1 g/dL (12.0-15.0); Lymphocyte # 1.43 X10^3/ul (0.83-4.51); Lymphocyte % 11.4 % (19-41); Mean Corp Hgb Conc 30.8 g/dL (32-36); Mean Corpuscular Hgb 26.5 pg (27.0-32.0); Monocyte# 0.55 X10^3/uL; Monocyte% 4.4 % (0-10); NRBC Flagged by Analyzer 0 % (0-5); Neutrophil # 10.31 X10^3/uL (2.7-7.7); Neutrophil % 82.6 % (47-70); Platelet Count 228 K/mm3 (150-450); RBC Distribution Width CV 15.1 % (11.6-14.6); RBC Distribution Width SD 47.7 fl (35.1-43.9); Red Blood Count 4.94 M/mm3 (4.2-5.4); White Blood Count 12.5 K/mm3 (4.4-11.0)
[2022-12-23] MEDS: 0.9% Normal Saline 1,000 ML 1000 ML IV (11:56)
[2022-12-23] MEDS: Haloperidol Lactate 5 MG/ML Vial 2 MG IV ×2 (11:56→22:01)
[2022-12-23 13:34] LABS: ALB/GLOB Ratio 1.1 RATIO (0.9-2.4); AST(SGOT) 21 U/L (15-37); Alanine Aminotransfer ALT/SGPT 23 U/L (13-56); Albumin, Serum 3.9 g/dL (3.2-5.0); Alkaline Phosphatase 53 U/L (45-117); Anion Gap 6 (5-15); BUN 7 mg/dL (7-18); BUN/Creat Ratio 8.1 RATIO (10-20); Calcium,Total 8.8 mg/dL (8.5-10.1); Chloride 111 mmol/L (98-107); Creatinine, Serum 0.87 mg/dL (0.55-1.02); EST Glomerular Filtration Rate 86 mL/min (>60); Est Glom Filt Rate - Afr Amer 104 mL/min (>60); Globulin 3.4 g/dL (2.2-4.2); Glucose 100 mg/dL (74-106); Lactic Acid 1.9 mmol/L (0.4-1.9); Lipase 28 U/L (13-75); Potassium 3.8 mmol/L (3.5-5.1); Protein, Total 7.3 g/dL (6.4-8.2); Sodium Level 140 mmol/L (136-145)
[2022-12-23] MEDS: Dicyclomine 20 MG/2 ML Vial IM (14:28)
--- NOTE | 2022-12-23 14:32 | NURSING ---
MED SURG OLEGHE CYCLIC VOMITING, ABD PAIN
[2022-12-23 14:34] VITALS: BP 146/80; PULSE 95; RESP 16; TEMP 37; O2SAT 100
[2022-12-23 15:04] VITALS: BP 153/115; PULSE 105; RESP 18; TEMP 36.7; O2SAT 100
[2022-12-23 15:39] LABS: Erythrocyte Sedimentation Rate 15 mm/hr (0-30)
--- NOTE | 2022-12-23 16:05 | PCM.HP.STD ---
[facility] - General General Date of Admission: 12/23/22 Date of Service: 12/23/22 Chief Complaint: Intractable nausea and vomiting HPI Narrative ADDIS TORRES, is a 22 F who presents intractable nausea and vomiting for about 1 to 2 weeks duration. Has been to the emergency department several times over the last 1 to 2 weeks for the same presentation. Suspected to have cyclical vomiting syndrome. Last used marijuana about a month ago. She also complains of some epigastric pain. No fever or chills. No chest pain or shortness of breath. She did have 1 episode of hematemesis several days ago. Does not report melanotic stools and has no diarrhea. Denies any recent medications or using any smul-jub-ajeglsg medications. [facility] Medical History Cyclic vomiting syndrome Depression Endometrial cancer History of alcohol abuse Hypertension Non-smoker PCOS (polycystic ovarian syndrome) Retained ureteral stent Ureter injury Ureteral stricture, left Ureterolithiasis Home Medications ciprofloxacin HCl 500 mg tablet (Cipro) 500 mg PO BID #14 tabs 12/12/22 [Rx Last Taken 12/22/22] ondansetron 4 mg disintegrating tablet 4 mg PO Q8H PRN nausea and vomiting #14 tabs 12/12/22 [Rx Last Taken Unknown] Allergy/AdvReac Type Severity Reaction Status Date / Time ceftriaxone [From Rocephin] Allergy Hives Verified 12/23/22 10:32 promethazine [From Phenergan] Allergy Vomiting Verified 12/23/22 10:32 Ringer's solution,lactated Allergy Hives Verified 12/23/22 10:32 Family History Father No problems noted. Mother Anxiety and depression GERD (gastroesophageal reflux disease) Surgical History History of hysterectomy for cancer History of renal stent Social History household members: family Smoking Status: Never smoker alcohol intake: former substance use type: marijuana and other details: No marijuana use in the last month ROS ROS Narrative Denies any chest pain or shortness of breath. All other systems reviewed and essentially negative as above in the body of the history. Vital Signs Vital Signs Vital Signs: 12/23/22 10:30 12/23/22 14:34 12/23/22 15:04 Temperature 37.0 C 37.0 C 36.7 C Temperature Source Temporal Oral Temporal Pulse Rate 115 H 95 105 H Respiratory Rate 18 16 18 Respiratory Effort Blood Pressure 150/108 H 146/80 H 153/115 H Blood Pressure Mean 122 102 127 Blood Pressure Source Monitor Blood Pressure Position Sitting Blood Pressure Location Right Arm Pulse Ox 100 100 100 Oxygen Delivery Method Room Air Room Air Room Air 12/23/22 15:26 Temperature Temperature Source Pulse Rate Respiratory Rate Respiratory Effort Normal Blood Pressure Blood Pressure Mean Blood Pressure Source Blood Pressure Position Blood Pressure Location Pulse Ox Oxygen Delivery Method Room Air Weight Weight: 97.2 kg Body Mass Index (BMI) 31.6 Physical Exam Narrative General exam. Young lady, acutely ill-appearing, in some distress, appears miserable, holding vomit bag in hand. HEENT. Oral mucosa dry, no pallor or jaundice Neck. Neck is supple Heart. First and second heart sounds are no murmurs Lungs. Lungs are clear to auscultation and nonlabored breathing. Abdomen. Mild tenderness in the epigastrium and right upper quadrant. Extremities. 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 Conscious alert and oriented x3. Cranial 2-12 grossly intact. Results Medical Records Data Attestation: I reviewed the patient's medical records Lab / Micro Data Attestation: I reviewed the patient's lab results. Result Diagrams: 12/23/22 11:45 12/23/22 12:50 Labs: Laboratory Results - last 24 hr 12/23/22 11:45: WBC 12.5 H, RBC 4.94, Hgb 13.1, Hct 42.5, MCV 86.0, MCH 26.5 L, MCHC 30.8 L D, RDW Std Deviation 47.7 H, RDW Coeff of Roz 15.1 H, Plt Count 228, MPV 9.0, Immature Gran % (Auto) 0.300, Neut % (Auto) 82.6 H, Lymph % (Auto) 11.4 L, [place] % (Auto) 4.4, Eos % (Auto) 1.0, Baso % (Auto) 0.3, Absolute Neuts (auto) 10.3 H, Absolute Lymphs (auto) 1.43, Nucleated RBC % 0 12/23/22 11:45: Lactic Acid Cancelled 12/23/22 11:55: Sodium Cancelled, Potassium Cancelled, Chloride Cancelled, Carbon Dioxide Cancelled, Anion Gap Cancelled, BUN Cancelled, Creatinine Cancelled, Estim Creat Clear Calc Cancelled, Est GFR (MDRD) Af Amer Cancelled, Est GFR (MDRD) Non-Af Cancelled, BUN/Creatinine Ratio Cancelled, Glucose Cancelled, Calcium Cancelled, Total Bilirubin Cancelled, AST Cancelled, ALT Cancelled, Alkaline Phosphatase Cancelled, Total Protein Cancelled, Albumin Cancelled, Globulin Cancelled, Albumin/Globulin Ratio Cancelled, Lipase Cancelled 12/23/22 12:50: Sodium 140, Potassium 3.8, Chloride 111 H, Carbon Dioxide 23.0, Anion Gap 6, BUN 7, Creatinine 0.87, Estim Creat Clear Calc 106.00, Est GFR (MDRD) Af Amer 104, Est GFR (MDRD) Non-Af 86, BUN/Creatinine Ratio 8.1 L, Glucose 100, Calcium 8.8, Total Bilirubin 0.50, AST 21, ALT 23, Alkaline Phosphatase 53, Total Protein 7.3, Albumin 3.9, Globulin 3.4, Albumin/Globulin Ratio 1.1, Lipase 28 12/23/22 12:50: Lactic Acid 1.9 12/23/22 12:50: ESR 15 Assessment & Plan Assessment/Plan (1) Cyclical vomiting: (2) Dehydration: PLAN: Plan Assessment and plan 1. Intractable nausea and vomiting. History of cyclical vomiting syndrome. Possibly the same. Nonetheless reasonable to rule out gastritis. We will keep patient n.p.o., consult gastroenterology for possible EGD. Schedule antiemetics with Zofran 8 mg every 8 hours. Antacids. 2. Dehydration. Secondary to #1 above. We will keep on D5 normal saline with 20 of potassium at 100 cc an hour. Charges/Coding Visit Charges Inpatient E&M: 62911 Init Hosp L2
--- NOTE | 2022-12-23 16:08 | US_ITS ---
STUDY: ABDOMINAL ULTRASOUND - RIGHT UPPER QUADRANT REASON FOR VISIT: Female, 22 years old. Epigastric and right upper quadrant pain. TECHNIQUE: Ultrasound evaluation of the right upper quadrant was performed with real-time and static smith-scale imaging. TECHNICAL QUALITY: Examination limited by bowel gas. COMPARISON: CT the abdomen and pelvis, December 22, 2022. FINDINGS: Liver: The liver measures 13.5 cm. There is normal echogenicity of the liver. The bile ducts are within normal limits. There is hepatic color flow. The direction of portal flow is hepatopetal. There is no demonstrated mass lesion. Gallbladder: Normal distended gallbladder. The gallbladder wall measures 2 mm. There is a negative sonographic Terry''s sign. There is no pericholecystic fluid. There are no gallstones. Common Bile Duct (C.B.D.): The common bile duct measures 4 mm. Pancreas: Normal size of the head, body and tail of the pancreas. There is normal echogenicity of the pancreas. There is no demonstrated pancreatic mass or cyst. Right Kidney: There is partial visualization of lower pole right kidney. Normal size of the right kidney. The right kidney measures 10.1 cm. Normal renal cortex. The right cortex measures 1.7 cm. There is no demonstrated renal mass or cyst. There is no right hydronephrosis. US/Liver IMPRESSION: Normal right upper quadrant ultrasound examination. Electronically Signed: Esequiel Cisneros DO at 16:59 EDT Reading Location ID and State: [facility] Tel [phone], Service support ,
[2022-12-23 16:26] LABS: Ammonia < 10.0 umol/L (11-32)
[2022-12-23 16:32] LABS: Insulin 23.1 mU/L (2.6-37.6)
[2022-12-23 16:39] LABS: CRP < 2.90 mg/L (0.0-3.0); LDH 171 U/L (84-246)
[2022-12-23] MEDS: Ondansetron 4 MG/2 ML Vial 8 MG IV ×2 (16:52→20:59)
[2022-12-23] MEDS: 0.9% Saline Lock 10 ML Syringe IV (16:52)
[2022-12-23] MEDS: KCl 20MEQ in D5NS 20 MEQ/1,000 ML IV.SOLN. 100 MEQ IV (17:00)
[2022-12-23 21:27] VITALS: BP 148/82; PULSE 96; RESP 20; TEMP 36.9; O2SAT 100
[2022-12-23] MEDS: HYDROmorphone 0.5 MG/0.5 ML SYRINGE IV (21:52)
--- NOTE | 2022-12-23 23:00 | EX.PCM.CON.G ---
HPI Consult Data Date of Consult: 12/23/22 HPI Narrative Reason for Consultation: Abdominal pain with nausea vomiting HPI Narrative: ADDIS TORRES, is a 22 F who presents back to the ED with worsening abdominal pain. She initially presented 12/10/2022 for severe left-sided abdominal pain and intractable vomiting.? She presented on 12/12/2022 for the same symptoms.? She states it is just as severe now as it was when she was here in the ER before and she has no new symptoms including urinary symptoms.? She states it started after she ate some sloppy Bogdan's with hamburger, her significant other ate this as well and he did not get any symptoms.? She has been seen here before for vomiting.? She apparently has a history of smoking marijuana but has not smoked any recently.? She denies any other drugs recently.? She had chicken noodle soup tonight, the because things do seem to get worse and she has been vomiting uncontrollably and she states that the main issue is the pain, which seems to make her then vomit more.? She has been having bowel movements, they are normal, she has been urinating and it is also normal.? She denies any pain in her back.? She denies any trouble breathing or other chest symptoms.? She denies any fevers or chills.? No travel out of the area recently or ingestion of any other suspicious foods. I requested that she have a DH tube placed. She states today that she feels very good and has not had any more nausea and vomiting since the Dobbhoff tube was placed.? She had a tube removed and was able to tolerate a normal diet. She comes back into the hospital with the same symptoms. She says she has not been smoking any marijuana since her last admission. She has been back to the hospital 3 times since being DC'd for intractable nausea vomiting and abdominal pain. [facility] Medical History Cyclic vomiting syndrome Depression Endometrial cancer History of alcohol abuse Hypertension Non-smoker PCOS (polycystic ovarian syndrome) Retained ureteral stent Ureter injury Ureteral stricture, left Ureterolithiasis Home Medications ciprofloxacin HCl 500 mg tablet (Cipro) 500 mg PO BID #14 tabs 12/12/22 [Rx Last Taken 12/22/22] ondansetron 4 mg disintegrating tablet 4 mg PO Q8H PRN nausea and vomiting #14 tabs 12/12/22 [Rx Last Taken Unknown] Allergy/AdvReac Type Severity Reaction Status Date / Time ceftriaxone [From Rocephin] Allergy Hives Verified 12/23/22 10:32 promethazine [From Phenergan] Allergy Vomiting Verified 12/23/22 10:32 Ringer's solution,lactated Allergy Hives Verified 12/23/22 10:32 Family History Father No problems noted. Mother Anxiety and depression GERD (gastroesophageal reflux disease) Surgical History History of hysterectomy for cancer History of renal stent Social History household members: family Smoking Status: Never smoker alcohol intake: former substance use type: marijuana and other details: No marijuana use in the last month ROS ROS Narrative Denies any chest pain or shortness of breath. All other systems reviewed and essentially negative as above in the body of the history. Physical Exam Narrative General exam. Young lady, acutely ill-appearing, in some distress, appears miserable, holding vomit bag in hand. HEENT. Oral mucosa dry, no pallor or jaundice Neck. Neck is supple Heart. First and second heart sounds are no murmurs Lungs. Lungs are clear to auscultation and nonlabored breathing. Abdomen. Mild tenderness in the epigastrium and right upper quadrant. Extremities. 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 Cranial 2-12 grossly intact. Lab / Micro Data Result Diagrams: 12/24/22 06:10 12/24/22 06:10 Labs: Laboratory Results - last 24 hr 12/23/22 12:50: Sodium 140, Potassium 3.8, Chloride 111 H, Carbon Dioxide 23.0, Anion Gap 6, BUN 7, Creatinine 0.87, Estim Creat Clear Calc 106.00, Est GFR (MDRD) Af Amer 104, Est GFR (MDRD) Non-Af 86, BUN/Creatinine Ratio 8.1 L, Glucose 100, Calcium 8.8, Total Bilirubin 0.50, AST 21, ALT 23, Alkaline Phosphatase 53, Total Protein 7.3, Albumin 3.9, Globulin 3.4, Albumin/Globulin Ratio 1.1, Lipase 28 12/23/22 12:50: Lactic Acid 1.9 12/23/22 12:50: ESR 15 12/23/22 15:50: Lactate Dehydrogenase 171, C-React Prot Ext Range < 2.90 12/23/22 15:50: Urine 5-HIAA 24 Hour Cancelled, Urine 5-HIAA, Quant Cancelled 12/23/22 15:50: Insulin Level 23.1 12/23/22 15:50: Ammonia < 10.0 L 12/24/22 06:10: WBC 9.3, RBC 4.21, Hgb 11.4 L, Hct 35.6 L, MCV 84.6, MCH 27.1, MCHC 32.0, RDW Std Deviation 46.7 H, RDW Coeff of Roz 15.3 H, Plt Count 221, MPV 9.0, Immature Gran % (Auto) 0.200, Neut % (Auto) 66.9, Lymph % (Auto) 24.3, [place] % (Auto) 8.0, Eos % (Auto) 0.4, Baso % (Auto) 0.2, Absolute Neuts (auto) 6.2, Absolute Lymphs (auto) 2.25, Nucleated RBC % 0 12/24/22 06:10: Sodium 141, Potassium 3.5, Chloride 112 H, Carbon Dioxide 24.0, Anion Gap 5, BUN 3 L, Creatinine 0.79, Estim Creat Clear Calc 116.73, Est GFR (MDRD) Af Amer 116, Est GFR (MDRD) Non-Af 96, BUN/Creatinine Ratio 3.8 L, Glucose 111 H, Calcium 8.4 L, Phosphorus 2.9, Magnesium 2.1, Total Bilirubin 0.40, AST 7 L, ALT 20, Alkaline Phosphatase 45, Total Protein 6.7, Albumin 3.5, Globulin 3.2, Albumin/Globulin Ratio 1.1 Radiology Impression Liver Ultrasound 12/23/22 16:08 IMPRESSION: Normal right upper quadrant ultrasound examination. Electronically Signed: Esequiel Cisneros DO at 16:59 EDT Reading Location ID and State: [address] [place] [address] Tel [phone], Service support , Assessment & Plan Assessment/Plan (1) Abdominal pain: (2) Nausea & vomiting: PLAN: Plan Patient is a 22-year-old lady with history of cyclical vomiting syndrome discharged from the hospital a day earlier following admission for nausea and vomiting and cystitis discharged on Cipro presented back to the emergency department with worsening abdominal pain in addition to nausea and vomiting presented with abdominal pain and intractable nausea vomiting 1.? Abdominal pain with intractable nausea vomiting ? Admitted to regular nursing floor for symptomatic management 2. Recent acute cystitis With pansensitive E. coli patient discharged on floor quinolones 3.? Dehydration ? Managed with IV fluid 4.? History of endometrial CA ? Currently stable 5.? DVT prophylaxis ? Low risk, encouraging ambulation 6. Cannabinoid use ? May be contributing to patient cyclical vomiting counseled on the need for cessation 7. I will send biochemical work-up for autoimmune disease. However she will have to do urine to test for diseases such as carcinoid, acute intermittent porphyria acute and she may need a gastric emptying study. . Charges/Coding Visit Charges Inpatient E&M: 78138 Init Hosp L3
[2022-12-24] VITALS (14 sets, daily range): BP systolic 128–155; BP diastolic 88–118; PULSE 78–108; RESP 16–20; TEMP 36.2–37.4; O2SAT 96–100; BMI 31.6
[2022-12-24] MEDS: KCl 20MEQ in D5NS 20 MEQ/1,000 ML IV.SOLN. 100 MEQ IV ×3 (01:57→21:21)
[2022-12-24] MEDS: HYDROmorphone 0.5 MG/0.5 ML SYRINGE IV ×2 (01:57→07:59)
[2022-12-24] MEDS: Haloperidol Lactate 5 MG/ML Vial 2 MG IV ×3 (05:15→21:16)
[2022-12-24 06:36] LABS: Absolute Lymphocyte Count 2.25 X10^3/uL (0.83-4.51); Absolute Neutrophil Count 6.2 X10^3/uL (2.0-7.7); Basophil# 0.02 X10^3/uL; Basophil% 0.2 % (0-1); Eosinophil# 0.04 X10^3/uL; Eosinophils% 0.4 % (0-5); Hematocrit 35.6 % (37-47); Hemoglobin 11.4 g/dL (12.0-15.0); Lymphocyte # 2.25 X10^3/ul (0.83-4.51); Lymphocyte % 24.3 % (19-41); Mean Corpuscular Hgb 27.1 pg (27.0-32.0); Mean Corpuscular Volume 84.6 fL (81-99); Monocyte# 0.74 X10^3/uL; NRBC Flagged by Analyzer 0 % (0-5); Neutrophil # 6.18 X10^3/uL (2.7-7.7); Neutrophil % 66.9 % (47-70); Platelet Count 221 K/mm3 (150-450); RBC Distribution Width CV 15.3 % (11.6-14.6); RBC Distribution Width SD 46.7 fl (35.1-43.9); Red Blood Count 4.21 M/mm3 (4.2-5.4); White Blood Count 9.3 K/mm3 (4.4-11.0)
[2022-12-24 07:09] LABS: ALB/GLOB Ratio 1.1 RATIO (0.9-2.4); AST(SGOT) 7 U/L (15-37); Alanine Aminotransfer ALT/SGPT 20 U/L (13-56); Albumin, Serum 3.5 g/dL (3.2-5.0); Alkaline Phosphatase 45 U/L (45-117); Anion Gap 5 (5-15); BUN 3 mg/dL (7-18); BUN/Creat Ratio 3.8 RATIO (10-20); Calcium,Total 8.4 mg/dL (8.5-10.1); Chloride 112 mmol/L (98-107); Creatinine, Serum 0.79 mg/dL (0.55-1.02); EST Glomerular Filtration Rate 96 mL/min (>60); Est Glom Filt Rate - Afr Amer 116 mL/min (>60); Estimated Creatinine Clearance 116.73 ml/min; Globulin 3.2 g/dL (2.2-4.2); Glucose 111 mg/dL (74-106); Magnesium 2.1 mg/dL (1.6-2.6); Phosphorus 2.9 mg/dL (2.5-4.9); Potassium 3.5 mmol/L (3.5-5.1); Protein, Total 6.7 g/dL (6.4-8.2); Sodium Level 141 mmol/L (136-145)
--- NOTE | 2022-12-24 07:57 | PCM.PN.HOSP ---
Reason for Visit Reason for Visit: Diagnoses Dehydration (12/23/22) Cyclical vomiting syndrome unrelated to migraine (12/23/22) Subjective Subjective Gets epigastric abdominal pain that radiates to her left. Denies THC nor CBD use (last use was 1 month ago). Objective Data Objective Data Vital Signs: Vital Signs Temp Pulse Resp BP Pulse Ox O2 Del Method 36.9 C 98 16 137/89 H 99 Room Air 12/24/22 07:54 12/24/22 07:54 12/24/22 07:54 12/24/22 07:54 12/24/22 07:54 12/24/22 07:54 Oxygen Delivery Method Room Air Weight: 97.2 kg Body Mass Index (BMI) 31.6 Intake & Output: Intake and Output for Last 24 Hours 12/22/22 12/23/22 12/24/22 23:59 23:59 23:59 Intake Total 1110 / 1110 895 / 895 Balance 1110 / 1110 895 / 895 Lab / Micro Data Result Diagrams: 12/24/22 06:10 12/24/22 06:10 Labs: Laboratory Results - last 24 hr 12/23/22 11:45: WBC 12.5 H, RBC 4.94, Hgb 13.1, Hct 42.5, MCV 86.0, MCH 26.5 L, MCHC 30.8 L D, RDW Std Deviation 47.7 H, RDW Coeff of Roz 15.1 H, Plt Count 228, MPV 9.0, Immature Gran % (Auto) 0.300, Neut % (Auto) 82.6 H, Lymph % (Auto) 11.4 L, [place] % (Auto) 4.4, Eos % (Auto) 1.0, Baso % (Auto) 0.3, Absolute Neuts (auto) 10.3 H, Absolute Lymphs (auto) 1.43, Nucleated RBC % 0 12/23/22 11:45: Lactic Acid Cancelled 12/23/22 11:55: Sodium Cancelled, Potassium Cancelled, Chloride Cancelled, Carbon Dioxide Cancelled, Anion Gap Cancelled, BUN Cancelled, Creatinine Cancelled, Estim Creat Clear Calc Cancelled, Est GFR (MDRD) Af Amer Cancelled, Est GFR (MDRD) Non-Af Cancelled, BUN/Creatinine Ratio Cancelled, Glucose Cancelled, Calcium Cancelled, Total Bilirubin Cancelled, AST Cancelled, ALT Cancelled, Alkaline Phosphatase Cancelled, Total Protein Cancelled, Albumin Cancelled, Globulin Cancelled, Albumin/Globulin Ratio Cancelled, Lipase Cancelled 12/23/22 12:50: Sodium 140, Potassium 3.8, Chloride 111 H, Carbon Dioxide 23.0, Anion Gap 6, BUN 7, Creatinine 0.87, Estim Creat Clear Calc 106.00, Est GFR (MDRD) Af Amer 104, Est GFR (MDRD) Non-Af 86, BUN/Creatinine Ratio 8.1 L, Glucose 100, Calcium 8.8, Total Bilirubin 0.50, AST 21, ALT 23, Alkaline Phosphatase 53, Total Protein 7.3, Albumin 3.9, Globulin 3.4, Albumin/Globulin Ratio 1.1, Lipase 28 12/23/22 12:50: Lactic Acid 1.9 12/23/22 12:50: ESR 15 12/23/22 15:50: Lactate Dehydrogenase 171, C-React Prot Ext Range < 2.90 12/23/22 15:50: Urine 5-HIAA 24 Hour Cancelled, Urine 5-HIAA, Quant Cancelled 12/23/22 15:50: Insulin Level 23.1 12/23/22 15:50: Ammonia < 10.0 L 12/24/22 06:10: WBC 9.3, RBC 4.21, Hgb 11.4 L, Hct 35.6 L, MCV 84.6, MCH 27.1, MCHC 32.0, RDW Std Deviation 46.7 H, RDW Coeff of Roz 15.3 H, Plt Count 221, MPV 9.0, Immature Gran % (Auto) 0.200, Neut % (Auto) 66.9, Lymph % (Auto) 24.3, [place] % (Auto) 8.0, Eos % (Auto) 0.4, Baso % (Auto) 0.2, Absolute Neuts (auto) 6.2, Absolute Lymphs (auto) 2.25, Nucleated RBC % 0 12/24/22 06:10: Sodium 141, Potassium 3.5, Chloride 112 H, Carbon Dioxide 24.0, Anion Gap 5, BUN 3 L, Creatinine 0.79, Estim Creat Clear Calc 116.73, Est GFR (MDRD) Af Amer 116, Est GFR (MDRD) Non-Af 96, BUN/Creatinine Ratio 3.8 L, Glucose 111 H, Calcium 8.4 L, Phosphorus 2.9, Magnesium 2.1, Total Bilirubin 0.40, AST 7 L, ALT 20, Alkaline Phosphatase 45, Total Protein 6.7, Albumin 3.5, Globulin 3.2, Albumin/Globulin Ratio 1.1 Radiography Diagnostic Testing: Radiology Impression Liver Ultrasound 12/23/22 16:08 IMPRESSION: Normal right upper quadrant ultrasound examination. Electronically Signed: Esequiel CisnerosDO at 16:59 EDT Reading Location ID and State: [address] [place] [address] Tel [phone], Service support , Physical Exam Const alert and no apparent distress Resp normal respiratory effort, no retractions, no use of accessory muscles and clear to auscultation bilaterally Cardio regular rate, regular rhythm, S1 normal heart sound and S2 normal heart sound GI normal to inspection, nondistended, normoactive bowel sounds GI Narrative: reproducible anterior abdominal pain, but appeared very superficial and out of proportion to exam. Assessment & Plan Assessment/Plan (1) Cyclical vomiting: PLAN: 3 admission this month UDS consistently positive for cannabinoids. Concerning for cannabinoid hyperemesis syndrome, though pt consistently denies this. States last use was 1 month ago. (significant other admits to him using) Pt states that she develops abdominal pain, then has N/V, only helped with pain medication. I advised no narcotics as this may exacerbate her abdominal pain. EGD shows erosive esophagitis. erythematous mucosa in cardia. Continue PPI Full liquid diet. (2) Dehydration: PLAN: Dehydration. Secondary to #1 above. We will keep on D5 normal saline with 20 of potassium at 100 cc an hour. Charges/Coding Visit Charges Inpatient E&M: 65902 Subs Hosp L2
--- NOTE | 2022-12-24 10:38 | NURSING ---
pt has not spoke to dr friend at this point, wants to speak w/him prior to signing consent
[2022-12-24] MEDS: 0.9% Normal Saline 1,000 ML 15 ML IV (13:01)
--- NOTE | 2022-12-24 13:30 | EGD_PTH ---
PATIENT: ADDIS TORRES LOC: [facility]3 U#:[id number] AGE/SX: 22/F ROOM: [facility]311 RE12/24/[address]: Dr. Josué Marquez DO : 2000 BED: 1 DIS: 12/26/2022 SPEC #: [id number] RECD: 12/24/22 13:58 STATUS: IVANIA PANDA #: [id number] DEJUAN: 12/24/22 13:[address]: Francisco Gunn DEPT: SURGICAL PATHOLOGY RECD BY: Ana Pack ENTERED: 12/25/22 08:59 SP TYPE: EGD BIOPSY OTHR DR: MD Dr. Josué Randhawa DO Dr. Ifijen Oleghe, MD Tissues: A - Duodenum, NOS B - Gastric mucous membrane C - Esophagus, NOS Procedures: Special Stain Group I Surgery Specimen Level IV GMS Stain (control) Comments: @ Ordering doctor for SUIV edited from to @ by SHAWN at 12/25/22 1446 @ Submitting doctor edited from to @ by RGOOD at 12/25/22 144 HEADER OPERATION: EGD ([facility]), biopsies PRE-OP DIAGNOSIS: Abdominal pain, nausea, vomiting TISSUE SUBMITTED: A - Duodenum biopsy, B - Gastric cardia biopsy, C - Random esophagus biopsy MICROSCOPIC DIAGNOSIS A. Duodenum, biopsy: Focal gastric metaplasia. B. Gastric cardia, biopsy: Mild chronic inflammation. See comment. C. Esophagus, random biopsy: Focal acute inflammation. Changes consistent with reflux. No evidence of fungal organisms. See comment. AM:manan 12/26/2022 COMMENT B. The results of immunohistochemistry for Helicobacter pylori will be reported separately ([id number]). C. GMS stain with matched control was used in the evaluation of this case. MICROSCOPIC DESCRIPTION Slides are reviewed. GROSS DESCRIPTION A - Received in fixative is one container labeled with the patient's name and designated duodenum biopsy. The specimen consists of two irregular fragments of light suggs soft tissue that in aggregate measure 0.8 x 0.5 x 0.1 cm. The specimen is totally submitted in one cassette. B - Received in fixative is one container labeled with the patient's name and designated gastric cardia biopsy. The specimen consists of two irregular fragments of light suggs soft tissue that in aggregate measure 1.0 x 0.7 x 0.1 cm. The specimen is totally submitted in one cassette. C - Received in fixative is one container labeled with the patient's name and designated random esophagus biopsy. The specimen consists of multiple irregular fragments of light suggs soft tissue that in aggregate measure 1.0 x 0.2 x 0.1 cm. The specimen is totally submitted in one cassette. / AM:manan 12/25/2022 TC:2 CPT: 08788 x3, 26005
--- NOTE | 2022-12-24 13:30 | IMM_PTH ---
PATIENT: ADDIS TORRES LOC: MS3 U#:[id number] AGE/SX: 22/F ROOM: [facility] [place] RE12/24/[address]: Dr. Josué Marquez DO : 2000 BED: 1 DIS: 12/26/2022 SPEC #: [id number] RECD: 12/25/22 14:45 STATUS: IVANIA REJackie #: [id number] DEJUAN: 12/24/22 13:[address]: Francisco Gunn DEPT: IMMUNOHISTOCHEMISTRY RECD BY: Danita Mixon ENTERED: 12/25/22 14:46 SP TYPE: IMMUNO OTHR DR: MD Dr. Josué Randhawa DO Dr. Ifijen Oleghe, MD Tissues: B - Stomach, NOS Procedures: H Pylori (initial) PHYSICIAN & INSTITUTION [address] [address] SPECIMEN INFORMATION: Tissue Source: B ? Gastric cardia Clinical Info: Abdominal pain, nausea, vomiting Specimen Number: [id number] CPT code: 85182 METHODOLOGY: Deparaffinized sections of prefer/formalin-fixed tissue or PAP/DQ stained slides are incubated with monoclonal/polyclonal antibodies/oligonucleotide probes. Localization is made via biotin free immunoperoxidase method. Appropriate controls are performed and reacted as expected. Results on target cell population are indicated in the following table: RESULTS: ANTIBODY / CLONE RESULT Block B H Pylori (polyclonal) negative These tests were developed and their performance characteristics determined by [facility]. They may not have been cleared or approved by the U.S. Food and Drug Administration. The FDA has determined that such clearance or approval is not necessary. The above immunohistochemical/dualISH markers are ordered and reviewed by the Pathologist. INTERPRETATION: B. Gastric cardia, biopsy: Negative for Helicobacter pylori organisms. AM:manan 12/26/2022
--- NOTE | 2022-12-24 13:39 | OP.EGD_ITS ---
Patient Name: Sarina Talley Procedure Date: 12/24/2022 1:16 PM Date of : 2000 Age: 22 Procedure: Upper GI endoscopy Indications: Epigastric abdominal pain Providers: Francisco Gunn DO Medicines: Monitored Anesthesia Care Patient Profile: This is a 22 year old female. Complications: No immediate complications. Procedure: Pre-Anesthesia Assessment: - Prior to the procedure, a History and Physical was performed, and patient medications and allergies were reviewed. The risks and benefits of the procedure and the sedation options and risks were discussed with the patient. All questions were answered and informed consent was obtained. Patient identification and proposed procedure were verified by the physician. Mental Status Examination: normal. CV Examination: normal. Prophylactic Antibiotics: The patient does not require prophylactic antibiotics. Prior Anticoagulants: The patient has taken no previous anticoagulant or antiplatelet agents. ASA Grade Assessment: II - A patient with mild systemic disease. After reviewing the risks and benefits, the patient was deemed in satisfactory condition to undergo the procedure. The anesthesia plan was to use monitored anesthesia care (MAC). Immediately prior to administration of medications, the patient was re-assessed for adequacy to receive sedatives. The heart rate, respiratory rate, oxygen saturations, blood pressure, adequacy of pulmonary ventilation, and response to care were monitored throughout the procedure. The physical status of the patient was re-assessed after the procedure. After obtaining informed consent, the endoscope was passed under direct vision. Throughout the procedure, the patient's blood pressure, pulse, and oxygen saturations were monitored continuously. The Endoscope was introduced through the mouth, and advanced to the second part of duodenum. The upper GI endoscopy was accomplished without difficulty. The patient tolerated the procedure well. Scope In: 1:28:26 PM Scope Out: 1:32:22 PM Total Procedure Duration Time 0 hours 3 minutes 56 seconds Findings: LA Grade D (one or more mucosal breaks involving at least 75% of esophageal circumference) esophagitis with no bleeding was found 35 to 39 cm from the incisors. Biopsies were taken with a cold forceps for histology. Verification of patient identification for the specimen was done. Estimated blood loss was minimal. Localized moderately erythematous mucosa without bleeding was found in the cardia. Biopsies were taken with a cold forceps for histology. Verification of patient identification for the specimen was done. Estimated blood loss was minimal. No gross lesions were noted in the first portion of the duodenum. Biopsies were taken with a cold forceps for histology. Verification of patient identification for the specimen was done. Impression: - LA Grade D erosive esophagitis. Biopsied. - Erythematous mucosa in the cardia. Biopsied. - No gross lesions in the first portion of the duodenum. Biopsied. Recommendation: - Return patient [facility] care. - Advance diet as tolerated and full liquid diet. - Continue present medications. - Await pathology results. Procedure Code(s): --- Professional --- 40926, Esophagogastroduodenoscopy, flexible, transoral; with biopsy, single or multiple CPT copyright 2017 [employer]. All rights reserved. The codes documented in this report are preliminary and upon sign language instructor review may be revised to meet current compliance requirements. Francisco Gunn DO 12/24/2022 1:38:49 PM This report has been signed electronically. Number of Addenda: 0 Note Initiated On: 12/24/2022 1:16 PM
--- NOTE | 2022-12-24 13:39 | OP.CCLET_ITS ---
12/24/2022 Tj Willams Md Re : Upper GI endoscopy procedure for Sarina Talley Dear Dr. Willams This procedure was performed on Saturday, December 24, 2022. My impressions and recommendations are as follows: Impressions : - LA Grade D erosive esophagitis. Biopsied. - Erythematous mucosa in the cardia. Biopsied. - No gross lesions in the first portion of the duodenum. Biopsied. Recommendations : - Return patient to [facility] care. - Advance diet as tolerated and full liquid diet. - Continue present medications. - Await pathology results. My findings are described in the full procedure note, which is enclosed. If I can be of further assistance, please feel free to contact me at . Sincerely, Francisco Gunn, 12/24/2022 1:38:49 PM This report has been signed electronically.
--- NOTE | 2022-12-24 13:39 | NURSING ---
pt remains off unit for procedure
--- NOTE | 2022-12-24 13:56 | SUR.PHASEI ---
PATIENT SOBBING IT HURTS SO MUCH WORSE THAN BEFORE. STATES PRIOR TO PROCEDURE, ABDOMINAL PAIN WAS ALSO 10/10. REPORTS PAIN & NAUSEA BOTH FOR TWO YEARS SINCE SHE HAD A BOTCHED HYSTERECTOMY AND THEY BURNED A HOLE IN MY [LEFT] URETER. EDUCATION GIVEN.
--- NOTE | 2022-12-24 16:59 | NM_ITS ---
CLINICAL: 22-year-old female with history of clinical gastroparesis. SEMI-SOLID PHASE 99m Tc SULFUR COLLOID GASTRIC EMPTYING STUDY COMPARISON: Abdominal ultrasound report 12/23/2022, CT of the abdomen-pelvis report 12/22/2022 FINDINGS: The patient was administered 1.1 mCi of 99m Tc sulfur colloid mixed with oatmeal and consumed per os. Image acquisitions in the anterior-posterior projections were obtained for 60 minutes. There is prompt visualization of the stomach. There is no gastroesophageal reflux identified. First order kinetics are maintained throughout the duration of the acquisitions. The T ? raw data emptying was calculated to be 57.6 minutes, (Normal: 12-56 minutes). NM/Gastric Emptying Study IMPRESSION: 1. ABNORMAL 99m Tc sulfur colloid semi-solid phase (oatmeal) gastric emptying imaging examination. A. There is delayed semi-solid phase gastric emptying compared to normal controls with maintained first order kinetics throughout all components of the examination. (Jayro et al, J Nucl Med Tech 38: 186, 2010). Electronically Signed: Keegan Narvaez, at 11:57 EDT ,
[2022-12-25 03:30] VITALS: BP 135/93; PULSE 101; RESP 18; TEMP 36.9; O2SAT 98
[2022-12-25] MEDS: Haloperidol Lactate 5 MG/ML Vial 2 MG IV ×2 (04:50→13:47)
[2022-12-25] MEDS: KCl 20MEQ in D5NS 20 MEQ/1,000 ML IV.SOLN. 100 MEQ IV ×2 (04:56→14:40)
[2022-12-25 06:58] LABS: Anion Gap 5 (5-15); BUN 5 mg/dL (7-18); BUN/Creat Ratio 6.6 RATIO (10-20); Calcium,Total 9.3 mg/dL (8.5-10.1); Chloride 109 mmol/L (98-107); Creatinine, Serum 0.75 mg/dL (0.55-1.02); EST Glomerular Filtration Rate 102 mL/min (>60); Est Glom Filt Rate - Afr Amer 123 mL/min (>60); Estimated Creatinine Clearance 122.96 ml/min; Glucose 126 mg/dL (74-106); Potassium 3.9 mmol/L (3.5-5.1); Sodium Level 135 mmol/L (136-145)
--- NOTE | 2022-12-25 07:30 | PCM.PN.HOSP ---
Reason for Visit Reason for Visit: Diagnoses Dehydration (12/23/22) Unspecified abdominal pain (12/23/22) Cyclical vomiting syndrome unrelated to migraine (12/23/22) Nausea with vomiting, unspecified (12/23/22) Subjective Subjective No further nausea and vomiting. Still with some epigastric abdominal pain. Objective Data Objective Data Vital Signs: Vital Signs Temp Pulse Resp BP Pulse Ox O2 Del Method 36.9 C 101 H 18 135/93 H 98 Room Air 12/25/22 03:30 12/25/22 03:30 12/25/22 03:30 12/25/22 03:30 12/25/22 03:30 12/25/22 03:30 Oxygen Delivery Method Room Air Weight: 97.2 kg Body Mass Index (BMI) 31.6 Intake & Output: Intake and Output for Last 24 Hours 12/23/22 12/24/22 12/25/22 23:59 23:59 23:59 Intake Total 1110 / 1110 3630.5 / 3630.5 758.33 / 758.33 Output Total 0 / 0 Balance 1110 / 1110 3630.5 / 3630.5 758.33 / 758.33 Lab / Micro Data Result Diagrams: 12/24/22 06:10 12/25/22 05:35 Labs: Laboratory Results - last 24 hr 12/25/22 05:35: Sodium 135 L, Potassium 3.9, Chloride 109 H, Carbon Dioxide 21.0, Anion Gap 5, BUN 5 L, Creatinine 0.75, Estim Creat Clear Calc 122.96, Est GFR (MDRD) Af Amer 123, Est GFR (MDRD) Non-Af 102, BUN/Creatinine Ratio 6.6 L, Glucose 126 H, Calcium 9.3 Physical Exam Const alert and no apparent distress HEENT head/scalp atraumatic Resp normal respiratory effort and no retractions Cardio regular rate, regular rhythm, S1 normal heart sound and S2 normal heart sound GI normal to inspection, nondistended, normoactive bowel sounds GI Narrative: mild epigastric abdominal pain. Assessment & Plan Assessment/Plan (1) Cyclical vomiting: PLAN: 3 admission this month UDS consistently positive for cannabinoids. Concerning for cannabinoid hyperemesis syndrome, though pt consistently denies this. States last use was 1 month ago. (significant other admits to him using) Pt states that she develops abdominal pain, then has N/V, only helped with pain medication. I advised no narcotics as this may exacerbate her abdominal pain. EGD shows erosive esophagitis. erythematous mucosa in cardia. Continue PPI GES abnormal. Low fat diet. Avoid fresh fruit and vegetables. Avoid carbonated beverages (2) Dehydration: PLAN: Dehydration. Secondary to #1 above. We will keep on D5 normal saline with 20 of potassium at 100 cc an hour.
[2022-12-25 08:00] VITALS: BP 142/93; PULSE 91; RESP 18; TEMP 36.9; O2SAT 98
[2022-12-25] MEDS: 0.9% Saline Lock 10 ML Syringe IV ×2 (09:58→13:47)
[2022-12-25 10:05] VITALS: BP 156/92; PULSE 109; RESP 18; TEMP 36.8; O2SAT 94
--- NOTE | 2022-12-25 10:47 | CASEMGMT ---
EM[facility] CM Readmission Note Previous Admission:? 12/13/22-12/15/22; ER visit 12/22= N/V?? Diagnosis:? Intractable N/V? DC Disposition: Home Current Admission? Current Diagnosis:cyclic vomiting, abd pain Pt presented to ER with same symptoms as prior. Pt had GI c/s with EGD showing erosive esophatitis and erythematous mucosa in the cardia, both biopsied. Pt had a gastric emptying study this morning. Pt reports she was unable to take her antibiotic from last dc as it made her more nauseous. Pt states her f/u PCP appt is on 12/29. Pt denies using any cannabis since last hospital stay. Pt denies any homegoing needs. She is tearful in room speaking with her mother on the phone. DC Plan: Home
--- NOTE | 2022-12-25 13:03 | PCM.PROGNOTE ---
Subjective Subjective Patient underwent gastric emptying study and was determined to have gastroparesis. She is also collecting urine for pheochromocytoma Objective Data Objective Data Vital Signs: Vital Signs Temp Pulse Resp BP Pulse Ox O2 Del Method 98.3 F 109 H 18 156/92 H 94 Room Air 12/25/22 10:05 12/25/22 10:05 12/25/22 10:05 12/25/22 10:05 12/25/22 10:05 12/25/22 10:05 Oxygen Delivery Method Room Air Weight: 214 lb 4.629 oz Body Mass Index (BMI) 31.6 Intake & Output: Intake and Output for Last 24 Hours 12/23/22 12/24/22 12/25/22 23:59 23:59 23:59 Intake Total 1110 / 1110 3630.5 / 3630.5 1208.33 / 1208.33 Output Total 0 / 0 Balance 1110 / 1110 3630.5 / 3630.5 1208.33 / 1208.33 Lab / Micro Data Result Diagrams: 12/24/22 06:10 12/25/22 05:35 Labs: Laboratory Results - last 24 hr 12/25/22 05:35: Sodium 135 L, Potassium 3.9, Chloride 109 H, Carbon Dioxide 21.0, Anion Gap 5, BUN 5 L, Creatinine 0.75, Estim Creat Clear Calc 122.96, Est GFR (MDRD) Af Amer 123, Est GFR (MDRD) Non-Af 102, BUN/Creatinine Ratio 6.6 L, Glucose 126 H, Calcium 9.3 Radiography Diagnostic Testing: Radiology Impression Gastric Emptying Nuclear Medicine 12/24/22 16:59 IMPRESSION: 1. ABNORMAL 99m Tc sulfur colloid semi-solid phase (oatmeal) gastric emptying imaging examination. A. There is delayed semi-solid phase gastric emptying compared to normal controls with maintained first order kinetics throughout all components of the examination. (Jayro et al, J Nucl Med Tech 38: 186, 2010). Electronically Signed: Keegan Narvaez, at 11:57 EDT , Physical Exam Const alert and no apparent distress HEENT head/scalp atraumatic Resp normal respiratory effort and no retractions Cardio regular rate, regular rhythm, S1 normal heart sound and S2 normal heart sound GI normal to inspection, nondistended, normoactive bowel sounds GI Narrative: mild epigastric abdominal pain. Assessment & Plan Assessment/Plan (1) Abdominal pain: (2) Nausea & vomiting: PLAN: Plan Patient is a 22-year-old lady with history of cyclical vomiting syndrome discharged from the hospital a day earlier following admission for nausea and vomiting and cystitis discharged on Cipro presented back to the emergency department with worsening abdominal pain in addition to nausea and vomiting presented with abdominal pain and intractable nausea vomiting. She underwent EGD and was discovered to have severe erosive esophagitis along with signs and symptoms of delayed gastric emptying due to a very distended stomach with CO2 inflation. 1.? Abdominal pain with intractable nausea vomiting ? Possibly secondary to gastroparesis. Recommend gabapentin 100 mg p.o. 3 times daily & amitriptyline 10 mg daily for neuropathic pain. Also tramadol can be given as needed for pain. Narcotics should be avoided. For delayed gastric emptying we will put her on scheduled Reglan therapy while in the hospital. She was explained risk and benefits of Reglan therapy including and not with standing tardive dyskinesia and no resting tremor 2. Recent acute cystitis With pansensitive E. coli patient discharged on floor quinolones. She has no dysuria at this time 3.? Dehydration ? Managed with IV fluid 4.? History of endometrial CA ? Currently stable 5.? DVT prophylaxis ? Low risk, encouraging ambulation 6. Cannabinoid use ? May be contributing to patient cyclical vomiting counseled on the need for cessation 7.work-up for autoimmune disease is pending. However she will have to do urine to test for diseases such as carcinoid, acute intermittent porphyria. . Charges/Coding Visit Charges Inpatient E&M: 57646 Subs Hosp L3
[2022-12-25 13:07] LABS: Anti-Centromere B Ab <0.2 AI (0.0-0.9); Anti-Chromatin <0.2 AI (0.0-0.9); Anti-Jo <0.2 AI (0.0-0.9); Anti-Scleroderma-70 AB <0.2 AI (0.0-0.9); Anti-dsDNA Ab 1 IU/mL (0-9); RNP Ab <0.2 AI (0.0-0.9); SJOGREN'S Anti-SS-A test < 0.2 AI (0.0-0.9); SJOGREN'S Anti-SS-B test < 0.2 AI (0.0-0.9); Smith Ab <0.2 AI (0.0-0.9)
[2022-12-25 14:13] VITALS: BP 146/97; PULSE 104; RESP 18; TEMP 36.9; O2SAT 98
[2022-12-25] MEDS: Gabapentin 100 MG Capsule PO (16:27)
[2022-12-25] MEDS: Metoclopramide 10 MG/10 ML UDC PO (16:58)
[2022-12-25] MEDS: Mag Hydrox/Al Hydrox/Simeth 30 ML UDC PO (16:58)
[2022-12-25 17:07] LABS: Albumin 3.8 g/dL (2.9-4.4); Alpha-1-Globulins 0.3 g/dL (0.0-0.4); Alpha-2-Globulins 0.8 g/dL (0.4-1.0); Cytoplasmic Ab (C-ANCA) <1:20 titer (Neg:<1:20); Gamma Globulin 1.1 g/dL (0.4-1.8); IgG, Quant 1034 mg/dL (586-1602); Immunoglobulin A 178 mg/dL (87-352); Immunoglobulin G, Subclass 1 509 mg/dL (248-810); Immunoglobulin G, Subclass 2 455 mg/dL (130-555); Immunoglobulin G, Subclass 3 25 mg/dL (15-102); Immunoglobulin G, Subclass 4 32 mg/dL (2-96); Immunoglobulin M 213 mg/dL (26-217); PROEL- TOTAL PROTEIN 7.1 g/dL (6.0-8.5); Perinuclear Ab (P-ANCA) <1:20 titer (Neg:<1:20)
[2022-12-25] MEDS: Acetaminophen 325 MG Tablet 650 MG PO (19:33)
[2022-12-25 20:13] VITALS: BP 128/86; PULSE 86; RESP 16; TEMP 36.7; O2SAT 98
[2022-12-25] MEDS: Amitriptyline 10 MG Tablet PO (21:56)
[2022-12-26] MEDS: KCl 20MEQ in D5NS 20 MEQ/1,000 ML IV.SOLN. 100 MEQ IV (01:08)
[2022-12-26 06:15] VITALS: BP 134/88; PULSE 86; RESP 16; TEMP 36.8; O2SAT 100
[2022-12-26] MEDS: Metoclopramide 10 MG/10 ML UDC PO ×2 (06:21→10:39)
--- NOTE | 2022-12-26 07:20 | PN.HOSP_ITS ---
Reason for Visit Reason for Visit: Diagnoses Dehydration (12/24/22) Unspecified abdominal pain (12/24/22) Cyclical vomiting syndrome unrelated to migraine (12/24/22) Nausea with vomiting, unspecified (12/24/22) Subjective Subjective Ate some last night and was able to keep it down, but did have abdominal pain that lasted 20 minutes. Today, nursing informed me patient had lunch (did not eat breakfast as she was not hungry) and felt well. Objective Data Objective Data Vital Signs: Vital Signs Temp Pulse Resp BP Pulse Ox O2 Del Method 36.8 C 86 16 134/88 H 100 Room Air 12/26/22 06:15 12/26/22 06:15 12/26/22 06:15 12/26/22 06:15 12/26/22 06:15 12/26/22 06:15 Oxygen Delivery Method Room Air Weight: 97.2 kg Body Mass Index (BMI) 31.6 Intake & Output: Intake and Output for Last 24 Hours 12/24/22 12/25/22 12/26/22 23:59 23:59 23:59 Intake Total 3630.5 / 3630.5 1790.00 / 1790.00 1000 / 1000 Output Total 0 / 0 Balance 3630.5 / 3630.5 1790.00 / 1790.00 1000 / 1000 Lab / Micro Data Result Diagrams: 12/24/22 06:10 12/25/22 05:35 Labs: Laboratory Results - last 24 hr 12/23/22 15:50: DELIA-1 Antibody <0.2, SS-A/Ro IgG Antibody < 0.2, SS-B/La IgG Antibody < 0.2, Sm (Rogers) Antibody <0.2, CAREER DEVELOPMENT MANAGER Antibody <0.2, Scl-70 Scleroderma Ab <0.2, Double Strand DNA Ab 1, Centromere B Antibody <0.2 12/23/22 15:50: Total Protein (PEP) 7.1, Globulin 3.3, IgG Not Reportable, IgG Total 1034, IgG1 509, IgG2 455, IgG3 25, IgG4 32, IgA 178, IgM 213, Immunofixation Screen Comment, Albumin (WERNER) 3.8, Albumin/Globulin (WERNER) 1.2, Ddxtb-9-Kmfkaaawb WERNER 0.3, Erfwc-2-Bnjqbvnvy WERNER 0.8, Beta-Globulins (WERNER) 1.1, Gamma Globulins (WERNER) 1.1, WERNER M-Kodi , WERNER Comments Comment, c-ANCA Antibody <1:20, Atypical p-ANCA <1:20, p-ANCA Antibody <1:20 Radiography Diagnostic Testing: Radiology Impression Gastric Emptying Nuclear Medicine 12/24/22 16:59 IMPRESSION: 1. ABNORMAL 99m Tc sulfur colloid semi-solid phase (oatmeal) gastric emptying imaging examination. A. There is delayed semi-solid phase gastric emptying compared to normal controls with maintained first order kinetics throughout all components of the examination. (Jayro et al, J Nucl Med Tech 38: 186, 2010). Electronically Signed: Keegan Brice, at 11:57 EDT , Physical Exam Const alert and no apparent distress HEENT head/scalp atraumatic and moist oral mucous membranes Resp normal respiratory effort, no retractions, no use of accessory muscles and clear to auscultation bilaterally Cardio regular rate, regular rhythm, S1 normal heart sound and S2 normal heart sound GI normal to inspection, nondistended, normoactive bowel sounds, soft to palpation, non-tender and non-distended Assessment & Plan Assessment/Plan (1) Cyclical vomiting: PLAN: 3 admission this month UDS consistently positive for cannabinoids. Concerning for cannabinoid hyperemesis syndrome, though pt consistently denies this. States last use was 1 month ago. (significant other admits to him using) Pt states that she develops abdominal pain, then has N/V, only helped with pain medication. I advised no narcotics as this may exacerbate her abdominal pain. EGD shows erosive esophagitis. erythematous mucosa in cardia. Continue PPI GES abnormal. Low fat diet. Avoid fresh fruit and vegetables. Avoid carbonated beverages DW Dr. Gunn, he recommended reglan. Follow up with GI as outpt. (2) Dehydration: PLAN: Dehydration. Secondary to #1 above. We will keep on D5 normal saline with 20 of potassium at 100 cc an hour.
[2022-12-26] MEDS: Gabapentin 100 MG Capsule PO (07:30)
[2022-12-26 08:03] VITALS: BP 136/102; PULSE 91; RESP 18; TEMP 37.1; O2SAT 99
--- NOTE | 2022-12-26 09:00 | PCM.PROGNOTE ---
Subjective Subjective Patient was started on medical therapy for gastroparesis and is tolerating the medicines without any issues. She has been able to eat with mild abdominal pain. Objective Data Objective Data Vital Signs: Vital Signs Temp Pulse Resp BP Pulse Ox O2 Del Method 99.2 F H 111 H 18 145/101 H 99 Room Air 12/26/22 11:15 12/26/22 11:15 12/26/22 11:15 12/26/22 11:15 12/26/22 11:15 12/26/22 11:15 Oxygen Delivery Method Room Air Weight: 214 lb 4.629 oz Body Mass Index (BMI) 31.6 Intake & Output: Intake and Output for Last 24 Hours 12/24/22 12/25/22 12/26/22 23:59 23:59 23:59 Intake Total 3630.5 / 3630.5 1790.00 / 1790.00 1994 Output Total 0 / 0 Balance 3630.5 / 3630.5 1790.00 / 1790.00 1994 Lab / Micro Data Result Diagrams: 12/24/22 06:10 12/25/22 05:35 Labs: Laboratory Results - last 24 hr 12/23/22 15:50: Total Protein (PEP) 7.1, Globulin 3.3, IgG Not Reportable, IgG Total 1034, IgG1 509, IgG2 455, IgG3 25, IgG4 32, IgA 178, IgM 213, Immunofixation Screen Comment, Albumin (WERNER) 3.8, Albumin/Globulin (WERNER) 1.2, Ezxdv-9-Fiuikxvsb WERNER 0.3, Ydmsu-9-Donbmjgjo WERNER 0.8, Beta-Globulins (WERNER) 1.1, Gamma Globulins (WERNER) 1.1, WERNER M-Kodi , WERNER Comments Comment, c-ANCA Antibody <1:20, Atypical p-ANCA <1:20, p-ANCA Antibody <1:20 Physical Exam Const alert and no apparent distress HEENT head/scalp atraumatic and moist oral mucous membranes Resp normal respiratory effort, no retractions, no use of accessory muscles and clear to auscultation bilaterally Cardio regular rate, regular rhythm, S1 normal heart sound and S2 normal heart sound GI normal to inspection, nondistended, normoactive bowel sounds, soft to palpation, non-tender and non-distended Assessment & Plan Assessment/Plan (1) Cyclical vomiting: PLAN: 3 admission this month UDS consistently positive for cannabinoids. Concerning for cannabinoid hyperemesis syndrome, though pt consistently denies this. States last use was 1 month ago. (significant other admits to him using) Pt states that she develops abdominal pain, then has N/V, only helped with pain medication. I advised no narcotics as this may exacerbate her abdominal pain. EGD shows erosive esophagitis. erythematous mucosa in cardia. Continue PPI GES abnormal. Low fat diet. Avoid fresh fruit and vegetables. Avoid carbonated beverages DW Dr. Gunn, he recommended reglan. Follow up with GI as outpt. (2) Dehydration: PLAN: Dehydration. Secondary to #1 above. We will keep on D5 normal saline with 20 of potassium at 100 cc an hour. (3) Abdominal pain: (4) Nausea & vomiting: PLAN: Plan Patient is a 22-year-old lady with history of cyclical vomiting syndrome discharged from the hospital a day earlier following admission for nausea and vomiting and cystitis discharged on Cipro presented back to the emergency department with worsening abdominal pain in addition to nausea and vomiting presented with abdominal pain and intractable nausea vomiting. She underwent EGD and was discovered to have severe erosive esophagitis along with signs and symptoms of delayed gastric emptying due to a very distended stomach with CO2 inflation. 1.? Abdominal pain with intractable nausea vomiting ? Possibly secondary to gastroparesis. Recommend gabapentin 100 mg p.o. 3 times daily & amitriptyline 10 mg daily for neuropathic pain. Also tramadol can be given as needed for pain. Narcotics should be avoided. For delayed gastric emptying we will put her on scheduled Reglan therapy while in the hospital. She was explained risk and benefits of Reglan therapy including and not with standing tardive dyskinesia and no resting tremor 2. Recent acute cystitis With pansensitive E. coli patient discharged on floor quinolones. She has no dysuria at this time 3.? Dehydration ? Managed with IV fluid 4.? History of endometrial CA ? Currently stable 5.? DVT prophylaxis ? Low risk, encouraging ambulation 6. Cannabinoid use ? May be contributing to patient cyclical vomiting counseled on the need for cessation 7.work-up for autoimmune disease is pending. However she will have to do urine to test for diseases such as carcinoid, acute intermittent porphyria. . Charges/Coding Visit Charges Inpatient E&M: 02070 Subs Hosp L3
[2022-12-26] MEDS: Pantoprazole Sodium 40 MG Tablet PO (09:32)
--- NOTE | 2022-12-26 10:48 | DCINST_ITS ---
Discharge Instructions Diet Discharge Diet: - (low fat. low fresh fruit and vegetables (cooked ok). no carbonated beverages. ) Dressing / Incision Call your doctor if you observe: - (intactable nausea and vomiting. ) Follow Up Care Test Results: Test results from this visit will be discussed in further detail at your follow- up appointment, if applicable. Discharge Plan Admission Admit Date/Time: 12/24/22 09:31 Primary Reason for Your Visit: gastroparesis Attending Provider: Josué Marquez Primary Care Provider: Tj Willams Consulting Providers: Rodolfo Reid Discharge Orders/Prescriptions Prescriptions: New amitriptyline 10 mg Tablet 10 mg PO QHS Qty: 14 0RF gabapentin 100 mg Capsule 100 mg PO TIDCM Qty: 60 0RF metoclopramide HCl 5 mg/5 mL Solution 10 mg PO TIDAC Qty: 1000 0RF pantoprazole 40 mg Tablet,Delayed Release (Dr/Ec) 40 mg PO BID Qty: 60 0RF acetaminophen 500 mg capsule 1,000 mg PO Q8H PRN PRN (Reason: pain) Qty: 60 0RF Continued ondansetron 4 mg tablet,disintegrating 4 mg PO Q8H PRN (Reason: nausea and vomiting) Qty: 14 0RF Discontinued ciprofloxacin HCl [Cipro] 500 mg tablet 500 mg PO BID Qty: 14 0RF Referrals / Follow Up: [facility] [Provider Group] - Within 2 Weeks Tj Willams MD [Primary Care Provider] - Within 2 Weeks Disposition Disposition (needs filled in before D/C Order can be placed): Home, Self Care
--- NOTE | 2022-12-26 10:55 | PCM.DC.SUM ---
Providers Date of Admission: 12/24/22 Primary Care Physician: Dr. Tj Willams MD Consultations 12/24/22 16:27 Consult: Gastroenterology Routine Consulting Provider: [facility] Reason for Consult: cyclic vomiting EMERGENT Consult: No MD Notified: Yes Date Notified: 12/23/22 Time Notified: 14:58 Method of Notification: ER physician spoke to him Reason For Visit: CYCLIC VOMITING, ABDOMINAL PAIN Diagnosis Discharge Diagnosis (1) Gastroparesis: Status: Acute Code(s): K31.84 - Gastroparesis Plan: 3 admission this month UDS consistently positive for cannabinoids. Concerning for cannabinoid hyperemesis syndrome, though pt consistently denies this. States last use was 1 month ago. (significant other admits to him using) Pt states that she develops abdominal pain, then has N/V, only helped with pain medication. I advised no narcotics as this may exacerbate her abdominal pain. EGD shows erosive esophagitis. erythematous mucosa in cardia. Continue PPI GES abnormal. Low fat diet. Avoid fresh fruit and vegetables. Avoid carbonated beverages DW Dr. Gunn, he recommended reglan. Follow up with GI as outpt. Reglan, gabapentin, Elavil, PRN zofran (2) Cyclical vomiting: Status: Acute Code(s): R11.15 - Cyclical vomiting syndrome unrelated to migraine Plan: 2.2 gastroparesis (3) Dehydration: Status: Acute Code(s): E86.0 - Dehydration Plan: Dehydration. Secondary to #1 above. Resolved Medications at Discharge Home Medications acetaminophen 500 mg capsule 1,000 mg PO Q8H PRN PRN pain #60 caps 12/26/22 amitriptyline 10 mg tablet 10 mg PO QHS #14 tabs 12/26/22 gabapentin 100 mg capsule 100 mg PO TIDCM #60 caps 12/26/22 metoclopramide HCl 5 mg/5 mL oral solution 10 mg (10 mL) PO TIDAC #1,000 mL 12/26/22 ondansetron 4 mg disintegrating tablet 4 mg PO Q8H PRN nausea and vomiting #14 tabs 12/26/22 pantoprazole 40 mg tablet,delayed release 40 mg PO BID #60 tabs 12/26/22 Hospital Course Operations None Procedures EGD Summary of Care Provided Minutes Spent on Discharge: 35 Hospital Course: 22-year-old female presents with recurrent nausea and vomiting. Patient underwent EGD that showed no acute process. Patient did have a gastric emptying study that was positive. Suspect that the patient's recurrent nausea and vomiting is due to gastroparesis. Patient is not known to be a diabetic. Patient was started on Reglan as well as Elavil and gabapentin. Today, the patient is doing well and has eaten. Did have some abdominal pain last night but is able to keep it down. Patient continue with his regimen for the time being. Patient explained that this is not going to be a long-term regimen with the Reglan due to the risk of tardive dyskinesia. Patient will follow-up gastroenterology in regards to any further adjustments to medications. Additionally, patient does have positive drug screen for marijuana. Patient states that she has not consumed any marijuana in over a month. Weight / BMI Weight Weight: 97.2 kg Body Mass Index (BMI) 31.6 ABG / Lab / Microbiology Data Result Diagrams: 12/24/22 06:10 12/25/22 05:35 Laboratory: Laboratory Results - last 24 hr 12/23/22 15:50: DELIA-1 Antibody <0.2, SS-A/Ro IgG Antibody < 0.2, SS-B/La IgG Antibody < 0.2, Sm (Rogers) Antibody <0.2, [employer]PER[employer]OR Antibody <0.2, Scl-70 Scleroderma Ab <0.2, Double Strand DNA Ab 1, Centromere B Antibody <0.2 12/23/22 15:50: Total Protein (PEP) 7.1, Globulin 3.3, IgG Not Reportable, IgG Total 1034, IgG1 509, IgG2 455, IgG3 25, IgG4 32, IgA 178, IgM 213, Immunofixation Screen Comment, Albumin (WERNER) 3.8, Albumin/Globulin (WERNER) 1.2, Xyzcg-1-Gkrgifuzq WERNER 0.3, Pyfnz-8-Oxdhzzjek WERNER 0.8, Beta-Globulins (WERNER) 1.1, Gamma Globulins (WERNER) 1.1, WERNER M-Kodi , WERNER Comments Comment, c-ANCA Antibody <1:20, Atypical p-ANCA <1:20, p-ANCA Antibody <1:20 Radiography Diagnostic Testing: Radiology Impression Gastric Emptying Nuclear Medicine 12/24/22 16:59 IMPRESSION: 1. ABNORMAL 99m Tc sulfur colloid semi-solid phase (oatmeal) gastric emptying imaging examination. A. There is delayed semi-solid phase gastric emptying compared to normal controls with maintained first order kinetics throughout all components of the examination. (Jayro et al, J Nucl Med Tech 38: 186, 2010). Electronically Signed: Keegan Narvaez, at 11:57 EDT , D/C Instructions Discharge Diet: - (low fat. low fresh fruit and vegetables (cooked ok). no carbonated beverages. ) Call your doctor if you observe: - (intactable nausea and vomiting. ) Meaningful Use Info Meaningful Use Diagnoses (Choose all that apply): None applicable Discharge Plan Admission Admit Date/Time: 12/24/22 09:31 Primary Reason for Your Visit: gastroparesis Attending Provider: Josué Marquez Primary Care Provider: Tj Willams Consulting Providers: Rodolfo Reid Discharge Orders/Prescriptions Prescriptions: New amitriptyline 10 mg Tablet 10 mg PO QHS Qty: 14 0RF gabapentin 100 mg Capsule 100 mg PO TIDCM Qty: 60 0RF metoclopramide HCl 5 mg/5 mL Solution 10 mg PO TIDAC Qty: 1000 0RF pantoprazole 40 mg Tablet,Delayed Release (Dr/Ec) 40 mg PO BID Qty: 60 0RF acetaminophen 500 mg capsule 1,000 mg PO Q8H PRN PRN (Reason: pain) Qty: 60 0RF Continued ondansetron 4 mg tablet,disintegrating 4 mg PO Q8H PRN (Reason: nausea and vomiting) Qty: 14 0RF Discontinued ciprofloxacin HCl [Cipro] 500 mg tablet 500 mg PO BID Qty: 14 0RF Referrals / Follow Up: [facility] [Provider Group] - Within 2 Weeks Tj Willams MD [Primary Care Provider] - Within 2 Weeks Disposition Disposition (needs filled in before D/C Order can be placed): Home, Self Care Charges/Coding Visit Charges Inpatient E&M: 57662 Disch Hosp >30min
[2022-12-26 11:15] VITALS: BP 145/101; PULSE 111; RESP 18; TEMP 37.3; O2SAT 99
[2022-12-29 10:07] LABS: C-Peptide 4.3 ng/mL (1.1-4.4); Immunoglobulin A 203 mg/dL (87-352); Immunoglobulin E 153 IU/mL (6-495); Immunoglobulin G 1132 mg/dL (586-1602); Immunoglobulin M 222 mg/dL (26-217)
[2022-12-31 00:06] LABS: 5-HIAA, 24UR 3.6 mg/24 hr (0.0-14.9); 5-HIAA, UR 2.1 mg/L (Undefined)
== END 2022-12-26 11:23 | disposition home or self-care (01) | DRG 254 ==
LOC: ED 12:02 → MS3 14:48
PROVIDERS: Internal Medicine Gastroenterology; Admitting Provider Internal Medicine; Emergency Provider Emergency Medicine; PCP Family Medicine
PROC: 0DJ08ZZ Inspection of Upper Intestinal Tract, Via Natural or Artificial Opening Endoscopic (ICD-10-PCS; CPT 43235; principal; 2022-12-24 13:25)
DX: K31.84 Gastroparesis (principal); E86.0 Dehydration; F12.90 Cannabis use, unspecified, uncomplicated; K20.80 Other esophagitis without bleeding; I10 Essential (primary) hypertension; G62.9 Polyneuropathy, unspecified; R11.15 Cyclical vomiting syndrome unrelated to migraine; N30.00 Acute cystitis without hematuria; B96.20 Unspecified Escherichia coli [E. coli] as the cause of diseases classified elsewhere; Z85.89 Personal history of malignant neoplasm of other organs and systems
CPT/HCPCS: 36415; 74177; 76705; 78264; 80048; 80053; 80307; 81001; 81050; 82140; 82784; 82785; 82787; 83497; 83525; 83605; 83615; 83690; 83735; 84100; 84165; 84681; 85025; 85652; 86140; 86225; 86235; 86256; 86334; 88305; 88312; 88342; 96361; 96365; 96372; 96375; 99282; 99283; A9541; J7030; Q9967; A4216; J2405; J3030; J3490

== ENCOUNTER 2023-06-01 10:31 | Emergency (ER) | payer SELFPAY ==
[2023-06-01 10:32] VITALS: BP 159/87; PULSE 78; RESP 14; TEMP 36.9; O2SAT 98
--- NOTE | 2023-06-01 11:00 | EX.ED.DYSGE1 ---
HPI History of Present Illness Chief Complaint: General Illness Narrative Narrative: 23-year-old female past medical history of gastroparesis presents because she states she is out of her home medications. She ran out 3 weeks ago and was supposed to see her sas developer analyst, Dr. Gunn, today. Her boyfriend relates history that she began vomiting this morning at 5:00 and presenting with epigastric pain which she usually has when she has her gastroparesis. They state that she is on gabapentin, ondansetron, and a liquid. She denies any fevers or chills, but has been seen in the emergency department previously for her gastroparesis, abdominal pain, nausea and vomiting. [facility] Medical History Cyclic vomiting syndrome Depression Endometrial cancer Gastroparesis History of alcohol abuse Hypertension Non-smoker PCOS (polycystic ovarian syndrome) Retained ureteral stent Ureter injury Ureteral stricture, left Ureterolithiasis Home Medications acetaminophen 500 mg capsule 1,000 mg (2 x 500 mg) PO Q8H PRN PRN pain #60 caps 12/26/22 [Rx Last Taken Unknown] amitriptyline 10 mg tablet 10 mg PO QHS #30 tabs 01/14/23 [Rx Last Taken Unknown] gabapentin 100 mg capsule 100 mg PO TIDCM #60 caps 01/14/23 [Rx Last Taken Unknown] metoclopramide HCl 5 mg/5 mL oral solution 10 mg (10 mL) PO TIDAC #1,000 mL 01/14/23 [Rx Last Taken Unknown] ondansetron 4 mg disintegrating tablet 4 mg PO Q8H PRN nausea and vomiting #60 tabs 01/14/23 [Rx Last Taken Unknown] pantoprazole 40 mg tablet,delayed release 40 mg PO BID #60 tabs 01/14/23 [Rx Last Taken Unknown] gabapentin 100 mg capsule 100 mg PO TID #30 caps 06/01/23 [Rx Last Taken Unknown] metoclopramide HCl 5 mg/5 mL oral solution 10 mg (10 mL) PO TID #1,000 mL 06/01/23 [Rx Last Taken Unknown] ondansetron 4 mg disintegrating tablet 4 mg PO Q6H PRN nausea and vomiting #20 tabs 06/01/23 [Rx Last Taken Unknown] Allergy/AdvReac Type Severity Reaction Status Date / Time ceftriaxone [From Rocephin] Allergy Hives Verified 06/01/23 10:32 promethazine [From Phenergan] Allergy Vomiting Verified 06/01/23 10:32 Ringer's solution,lactated Allergy Hives Verified 06/01/23 10:32 Family History Father No problems noted. Mother Anxiety and depression GERD (gastroesophageal reflux disease) Surgical History History of hysterectomy for cancer History of renal stent Social History household members: family Smoking Status: Never smoker alcohol intake: former substance use type: marijuana and other details: No marijuana use in the last month ROS ROS ED ROS Narrative Constitutional: No fever, no chills. HEENT: No sore throat. No neck pain. No loss of vision. No rhinorrhea. Cardiovascular: No chest pain. No palpitations. No pedal edema. Respiratory: No cough, no shortness of breath. Abdominal: Positive abdominal pain, nausea, vomiting. No hematemesis. Genitourinary: No dysuria. No hematuria. Musculoskeletal: No myalgias. No arthralgias. Neurologic: No headaches. No dizziness. No lightheadedness. Skin: No rash. No change in color. Psychiatric: No depression. No anxiety. EXAM Physical Exam Narrative Exam Narrative: Afebrile. Vital signs noted. HEENT: Normocephalic. Atraumatic. PERRL, EOMI. Neck soft and supple. No point tenderness or step off. Cardiovascular: Regular rate and rhythm. No murmurs, rubs, or gallops appreciated. Respiratory: No tachypnea. Lungs clear to auscultation bilaterally. Gastrointestinal: Abdomen soft, nontender, with decreased to normoactive bowel sounds. No rebound or guarding. Neurological: Awake. Alert. Nonfocal, nonlateralizing. Skin: No rash. Normal color. No pallor. Musculoskeletal: No pedal edema. Full range of motion extremities. Const Vital Signs: 06/01/23 10:32 Temperature 98.4 F Temperature Source Temporal Pulse Rate 78 Respiratory Rate 14 Blood Pressure 159/87 H Blood Pressure Mean 111 Pulse Ox 98 Oxygen Delivery Method Room Air MDM MDM MDM Narrative Medical decision making narrative: I reviewed the patient's prior records, she has been seen multiple times in the ED, with the last being in December. As she is out of her medications, she will be given ondansetron and metoclopramide which in review is the liquid that I feel that she had been prescribed which should help with her abdominal pain and gastroparesis. We will check her laboratory work to make sure she is not dehydrated as she states that she has been out of her medications for 3 weeks but was not having major problems until today, but did have nausea and vomiting in the past. Additionally, I had ordered serum test, but in her surgical history, she has listed history of hysterectomy secondary to carcinoma. Initially, I did not feel that she required any imaging of her abdomen. I reviewed her laboratory work from today which is slightly elevated white count of 12.5 which I think may be demargination from her vomiting, hemoglobin normal at 13.1. Platelet count normal at 284. CMP shows normal sodium of 136 with potassium 3.5, BUN normal at 10, creatinine 1.02, glucose appropriately elevated at 152 with a normal anion gap of 9, AST low at 13 and ALT normal at 27 with a normal alk phos of 65. Lipase is normal at 25. After initial doses of her medication of ondansetron and metoclopramide intravenously, she states she is still vomiting and having abdominal pain. I have reviewed her prior records, and 1 time she had been given fentanyl twice during the same visit, but then was admitted. Currently, I do not feel that narcotic pain medication is required. Since she was still having vomiting, in order to rule out obstruction CT of the abdomen and pelvis was obtained with IV contrast. There is no evidence of bowel obstruction. Appendix was visualized and is normal. No reason for her continued nausea and vomiting, or not verifiable abdominal pain. Although she states that she does not have cyclic vomiting syndrome, it is listed as a problem in her problem list. She was administered another dose of ondansetron, and Pepcid ordered along with Ativan. When I told her of her negative CT results, she states she felt the same. Once again I do not feel narcotic pain medication is indicated, and I did offer her observation for her continued nausea and vomiting but she declined. She would like to go home and I told her I would write her prescriptions for her Reglan, gabapentin which she takes 100 mg 3 times a day, and for ondansetron for the next week, but she was told further prescriptions should come from her sas developer analyst who writes them for her usually, Dr. Gunn. I feel she be discharged safely home with follow-up. Return instructions to the emergency department were reviewed. Disposition is discharged home in stable condition. History & Record Review Discussion w/independent historian: Patient and Significant other Additional record(s) reviewed:: Prior ED visit and Prior labs Lab Data Attestation: I reviewed the patient's lab results. Labs: Laboratory Results - last 24 hr 06/01/23 11:45 WBC 12.5 H RBC 4.90 Hgb 13.1 Hct 40.4 MCV 82.4 MCH 26.7 L MCHC 32.4 RDW Std Deviation 38.5 RDW Coeff of Roz 13.0 Plt Count 284 MPV 9.1 Immature Gran % (Auto) 0.300 Neut % (Auto) 90.6 H Lymph % (Auto) 6.7 L Mayes % (Auto) 2.1 Eos % (Auto) 0.1 Baso % (Auto) 0.2 Absolute Neuts (auto) 11.3 H Absolute Lymphs (auto) 0.83 Nucleated RBC % 0 Sodium 136 Potassium 3.5 Chloride 106 Carbon Dioxide 21.0 Anion Gap 9 BUN 10 Creatinine 1.02 Est GFR (MDRD) Af Amer 86 Est GFR (MDRD) Non-Af 71 BUN/Creatinine Ratio 9.8 L Glucose 152 H Calcium 9.3 Total Bilirubin 0.30 AST 13 L ALT 27 Alkaline Phosphatase 65 Total Protein 8.6 H Albumin 4.1 Globulin 4.5 H Albumin/Globulin Ratio 0.9 Lipase 25 Radiography Diagnostic Testing: Clinical Impression(s) from Imaging Studies Abdomen/Pelvis CT 06/01/23 13:02 IMPRESSION: Status post hysterectomy. Mildly enlarged ovaries with multiple small follicles. Electronically Signed: Pardeep Wetzel MD at 14:22 EDT , Discharge Plan Triage Chief Complaint: General Illness ED Provider: Kevin San Dx/Rx/DC Orders Clinical Impression: Gastroparesis, Nausea and vomiting, Abdominal pain Instructions: Gastroparesis, ED Abdominal Pain Unkn Cause Fem, ED Vomiting (Adult) Prescriptions: New ondansetron 4 mg tablet,disintegrating 4 mg PO Q6H PRN (Reason: nausea and vomiting) Qty: 20 0RF gabapentin 100 mg capsule 100 mg PO TID Qty: 30 0RF metoclopramide HCl 5 mg/5 mL solution 10 mg PO TID Qty: 1000 0RF No Action amitriptyline 10 mg tablet 10 mg PO QHS Qty: 30 11RF gabapentin 100 mg capsule 100 mg PO TIDCM Qty: 60 11RF metoclopramide HCl 5 mg/5 mL solution 10 mg PO TIDAC Qty: 1000 2RF pantoprazole 40 mg tablet,delayed release (DR/EC) 40 mg PO BID Qty: 60 3RF ondansetron 4 mg tablet,disintegrating 4 mg PO Q8H PRN (Reason: nausea and vomiting) Qty: 60 3RF acetaminophen 500 mg capsule 1,000 mg PO Q8H PRN PRN (Reason: pain) Qty: 60 0RF Primary Care Provider: Tj Willams Referrals: Tj Willams MD [Primary Care Provider] - Francisco Gunn DO [Med Staff - Active Staff] - As soon as possible Activity Restrictions/Additional Instructions: Call Dr. Gunn for further refills of your medications. Reschedule your appointment that you had with him today. Disposition Disposition: Home, Self Care
[2023-06-01] MEDS: 0.9% Normal Saline (1000mL) 1,000 ML 1000 ML IV (11:51)
[2023-06-01] MEDS: Metoclopramide 10 MG/2 ML Vial IV (11:51)
[2023-06-01] MEDS: Ondansetron 4 MG/2 ML Vial IV ×2 (11:51→13:25)
[2023-06-01 12:05] LABS: Absolute Lymphocyte Count 0.83 X10^3/uL (0.83-4.51); Absolute Neutrophil Count 11.3 X10^3/uL (2.0-7.7); Basophil# 0.03 X10^3/uL; Basophil% 0.2 % (0-1); Eosinophil# 0.01 X10^3/uL; Eosinophils% 0.1 % (0-5); Hematocrit 40.4 % (37-47); Hemoglobin 13.1 g/dL (12.0-15.0); Lymphocyte # 0.83 X10^3/ul (0.83-4.51); Lymphocyte % 6.7 % (19-41); Mean Corp Hgb Conc 32.4 g/dL (32-36); Mean Corpuscular Hgb 26.7 pg (27.0-32.0); Mean Corpuscular Volume 82.4 fL (81-99); Mean Platelet Vol. 9.1 fl (6.2-12.0); Monocyte# 0.26 X10^3/uL; Monocyte% 2.1 % (0-10); NRBC Flagged by Analyzer 0 % (0-5); Neutrophil # 11.31 X10^3/uL (2.7-7.7); Neutrophil % 90.6 % (47-70); Platelet Count 284 K/mm3 (150-450); RBC Distribution Width SD 38.5 fl (35.1-43.9); White Blood Count 12.5 K/mm3 (4.4-11.0)
[2023-06-01 12:20] LABS: ALB/GLOB Ratio 0.9 RATIO (0.9-2.4); AST(SGOT) 13 U/L (15-37); Alanine Aminotransfer ALT/SGPT 27 U/L (13-56); Albumin, Serum 4.1 g/dL (3.2-5.0); Alkaline Phosphatase 65 U/L (45-117); Anion Gap 9 (5-15); BUN 10 mg/dL (7-18); BUN/Creat Ratio 9.8 RATIO (10-20); Calcium,Total 9.3 mg/dL (8.5-10.1); Chloride 106 mmol/L (98-107); Creatinine, Serum 1.02 mg/dL (0.55-1.02); EST Glomerular Filtration Rate 71 mL/min (>60); Est Glom Filt Rate - Afr Amer 86 mL/min (>60); Globulin 4.5 g/dL (2.2-4.2); Glucose 152 mg/dL (74-106); Lipase 25 U/L (13-75); Potassium 3.5 mmol/L (3.5-5.1); Protein, Total 8.6 g/dL (6.4-8.2); Sodium Level 136 mmol/L (136-145)
--- NOTE | 2023-06-01 13:02 | CT_ITS ---
STUDY: CT ABDOMEN AND PELVIS WITH CONTRAST REASON FOR EXAM: Female, 23 years old. Nausea and vomiting. History of endometrial carcinoma. Alcohol abuse. Polycystic ovaries. RADIATION DOSAGE (If Supplied By Facility): CTDIvol = ( 14.82 ) mGy, DLP = ( 1378.78 ) mGycm TECHNIQUE: Transaxial images were obtained from the dome of the diaphragm to the symphysis pubis without oral contrast. IV 100mL Isovue-370 was administered. Sagittal and coronal images were reconstructed. Individualized dose optimization techniques were used for this CT. COMPARISON: Comparison is made with prior study dated December 22, 2022. FINDINGS: The visualized lung bases are unremarkable. The visualized portions of the heart are within normal limits. Normal liver. Normal gallbladder and extrahepatic biliary system. Normal spleen. Normal pancreas. Normal bilateral adrenal glands. Normal right kidney. Normal left kidney. Normal visualized stomach. Normal small intestine. Normal colon. The appendix is visualized and appears normal. Normal abdominal aorta. Normal inferior vena cava. There is borderline retroperitoneal lymphadenopathy with enlarged nodes no greater than 10mm in the short axis diameter. Normal urinary bladder. There is absence of the uterus consistent with a prior hysterectomy. Mildly enlarged ovaries with multiple tiny follicles. Normal abdominal wall. Normal osseous structures. CT/Abdomen/Pelvis W IV Cont ONLY IMPRESSION: Status post hysterectomy. Mildly enlarged ovaries with multiple small follicles. Electronically Signed: Pardeep Wetzel MD at 14:22 EDT ,
[2023-06-01] MEDS: LORazepam 2 MG/ML Syringe 0.5 MG IV (13:25)
[2023-06-01] MEDS: Famotidine 200 MG/20 ML MDV 20 MG in 0.9% Normal Saline (Pres. free 8 ML 300 MG IV (14:49)
[2023-06-01 14:56] VITALS: BP 129/88; PULSE 79; RESP 16; O2SAT 96
== END 2023-06-01 14:58 | disposition home or self-care (01) ==
PROVIDERS: Emergency Provider Emergency Medicine; PCP Family Medicine; Visit Provider Emergency Medicine
DX: K31.84 Gastroparesis (principal); R10.9 Unspecified abdominal pain; I10 Essential (primary) hypertension; F32.A Depression, unspecified; Z90.710 Acquired absence of both cervix and uterus; R11.2 Nausea with vomiting, unspecified
CPT/HCPCS: 74177; 80053; 83690; 85025; 96361; 96374; 96375; 96376; 99283; J7030; Q9967; A4216; J2405; J3490

== ENCOUNTER 2024-07-17 09:49 | Emergency (ER) | payer MEDICAID, SELFPAY ==
[2024-07-17] VITALS (7 sets, daily range): BP systolic 142–168; BP diastolic 95–113; PULSE 96–112; RESP 16–20; TEMP 36.6–37; O2SAT 97–100; BMI 35.9; BMI 36.7
[2024-07-17] MEDS: 0.9% Normal Saline (1000mL) 1,000 ML 999 ML IV (10:37)
[2024-07-17 10:50] LABS: AST(SGOT) 19 U/L (15-37); Alanine Aminotransfer ALT/SGPT 21 U/L (13-56); Albumin, Serum 4.2 g/dL (3.2-5.0); Alkaline Phosphatase 68 U/L (45-117); Anion Gap 9 (5-15); BUN 9 mg/dL (7-18); BUN/Creat Ratio 9.3 RATIO (10-20); Bilirubin, Direct 0.08 mg/dL (0.00-0.30); Calcium,Total 9.8 mg/dL (8.5-10.1); Chloride 107 mmol/L (98-107); Creatinine, Serum 0.97 mg/dL (0.55-1.02); EST Glomerular Filtration Rate 75 mL/min (>60); Est Glom Filt Rate - Afr Amer 91 mL/min (>60); Estimated Creatinine Clearance 117.66 ml/min; Globulin 4.6 g/dL (2.2-4.2); Glucose 109 mg/dL (74-106); Lipase 29 U/L (13-75); Potassium 3.7 mmol/L (3.5-5.1); Protein, Total 8.8 g/dL (6.4-8.2); Sodium Level 138 mmol/L (136-145)
[2024-07-17] MEDS: DiphenhydrAMINE 50 MG, ChlorproMAZINE IM 25 MG in 0.9% Normal Saline (100mL Bag) 100 ML 204 MG IV (10:52)
[2024-07-17 10:59] LABS: Absolute Lymphocyte Count 1.84 X10^3/uL (0.83-4.51); Absolute Neutrophil Count 7.7 X10^3/uL (2.0-7.7); Basophil# 0.06 X10^3/uL; Basophil% 0.6 % (0-1); Eosinophil# 0.17 X10^3/uL; Eosinophils% 1.7 % (0-5); Hematocrit 40.2 % (37-47); Lymphocyte # 1.84 X10^3/ul (0.83-4.51); Lymphocyte % 17.9 % (19-41); Mean Corp Hgb Conc 32.3 g/dL (32-36); Mean Corpuscular Hgb 25.5 pg (27.0-32.0); Mean Platelet Vol. 9.2 fl (6.2-12.0); Monocyte# 0.47 X10^3/uL; Monocyte% 4.6 % (0-10); NRBC Flagged by Analyzer 0 % (0-5); Neutrophil # 7.71 X10^3/uL (2.7-7.7); Neutrophil % 74.7 % (47-70); Platelet Count 336 K/mm3 (150-450); RBC Distribution Width CV 14.3 % (11.6-14.6); RBC Distribution Width SD 40.3 fl (35.1-43.9); Red Blood Count 5.09 M/mm3 (4.2-5.4); White Blood Count 10.3 K/mm3 (4.4-11.0)
[2024-07-17] MEDS: LORazepam 2 MG/ML Syringe 1 MG IV (12:51)
[2024-07-17] MEDS: Ketorolac 30 MG/ML Syringe IV (12:51)
[2024-07-17] MEDS: Metoclopramide 10 MG/2 ML Vial 5 MG IV (12:51)
== END 2024-07-17 13:17 | disposition home or self-care (01) ==
PROVIDERS: Emergency Provider Emergency Medicine; PCP Family Medicine; Visit Provider Emergency Medicine
DX: R11.10 Vomiting, unspecified (principal); R10.13 Epigastric pain; I10 Essential (primary) hypertension; Z90.710 Acquired absence of both cervix and uterus; K31.84 Gastroparesis; Z79.899 Other long term (current) drug therapy
CPT/HCPCS: 80048; 80076; 83690; 85025; 96365; 96375; 99283; J7030; A4216

== ENCOUNTER 2024-07-18 17:42 | Emergency (ER) | payer MEDICAID, SELFPAY ==
[2024-07-18 17:43] VITALS: BP 150/115; PULSE 109; RESP 16; TEMP 36.7; O2SAT 99; BMI 35.9
[2024-07-18] MEDS: 0.9% Normal Saline (1000mL) 1,000 ML 1000 ML IV (18:21)
[2024-07-18] MEDS: LORazepam 2 MG/ML Syringe 0.5 MG IV (18:21)
[2024-07-18] MEDS: Ondansetron 4 MG/2 ML Vial IV (18:21)
[2024-07-18 18:31] LABS: Anion Gap 12 (5-15); BUN 14 mg/dL (7-18); BUN/Creat Ratio 11.6 RATIO (10-20); Calcium,Total 9.5 mg/dL (8.5-10.1); Chloride 106 mmol/L (98-107); Creatinine, Serum 1.21 mg/dL (0.55-1.02); EST Glomerular Filtration Rate 58 mL/min (>60); Est Glom Filt Rate - Afr Amer 70 mL/min (>60); Estimated Creatinine Clearance 93.29 ml/min; Glucose 115 mg/dL (74-106); Potassium 3.3 mmol/L (3.5-5.1); Sodium Level 141 mmol/L (136-145)
[2024-07-18 19:02] VITALS: BP 154/107; PULSE 74; RESP 16; O2SAT 98
[2024-07-18] MEDS: Famotidine 200 MG/20 ML MDV 20 MG in 0.9% Normal Saline (Pres. free 8 ML 300 MG IV (19:02)
[2024-07-18] MEDS: DiphenhydrAMINE 50 MG, ChlorproMAZINE IM 50 MG in 0.9% Normal Saline (250mL Bag) 250 ML 253 MG IV (19:31)
[2024-07-18] MEDS: Dicyclomine 20 MG/2 ML Vial IM (19:55)
[2024-07-18 20:30] LABS: Mucous, Urine 0 SEEN /hpf (<or=2+); Red Blood Cells-Urine 0 SEEN /hpf (0-5)
[2024-07-18 20:44] LABS: Color, Urine Yellow (Yellow); Glucose, Dipstick Normal (Normal); Leukocyte Esterase-Dipstick 25 /ul (Negative); Nitrite-Dipstick Negative (Negative); Occult Blood-Urine Negative /ul (Negative); Protein-Dipstick 30 mg/dl (Negative); Specific Gravity, Urine 1.025 (1.002-1.030); Urine Bilirubin Dipstick Negative (Negative); Urine Clarity Clear (Clear); Urine Urobilinogen 1 mg/dl (Normal)
[2024-07-18 20:49] VITALS: BP 140/98; PULSE 115; RESP 18; O2SAT 98
[2024-07-18 20:57] LABS: Amphetamine Urine VISTA NEGATIVE (<1000 ng/mL); Barbiturate Urine VISTA NEGATIVE (< 200 ng/mL); Benzodiazepine Urine VISTA NEGATIVE (< 200 ng/mL); Cocaine Urine VISTA NEGATIVE (< 300 ng/mL); Ecstacy Urine VISTA NEGATIVE (< 500 ng/mL); Methadone Urine VISTA NEGATIVE (< 300 ng/mL); PCP Urine VISTA NEGATIVE (< 25 ng/mL); THC Urine VISTA POSITIVE (< 50 ng/mL); Vista UDS pH Range 5
[2024-07-18 21:40] LABS: Ketone-Dipstick 150 mg/dl (Negative)
[2024-07-18 21:43] LABS: Bacteria 1+ /hpf (None Seen); Squamous Epithelial Cells - UA 0-5 SEEN /hpf (5-10); White Blood Cells 0-5 SEEN /hpf (0-5)
[2024-07-18 22:00] VITALS: BP 160/114; PULSE 111; RESP 15; O2SAT 96
[2024-07-18] MEDS: Metoclopramide 10 MG/2 ML Vial 5 MG IV (22:11)
[2024-07-18] MEDS: Phenazopyridine 95 MG Tablet 190 MG PO (22:12)
[2024-07-18] MEDS: Nitrofurantoin Macrocrystals 100 MG Capsule PO (22:13)
[2024-07-18] MEDS: Capsaicin 0.025% 1 APPLIC Tube TOPICAL (22:16)
[2024-07-18 23:14] VITALS: BP 153/105; PULSE 108; RESP 18; TEMP 36.7; O2SAT 99
== END 2024-07-18 23:21 | disposition home or self-care (01) ==
PROVIDERS: Emergency Provider Emergency Medicine; PCP Family Medicine; Visit Provider Emergency Medicine
DX: R10.10 Upper abdominal pain, unspecified (principal); F12.188 Cannabis abuse with other cannabis-induced disorder; E86.0 Dehydration; I10 Essential (primary) hypertension; R00.0 Tachycardia, unspecified; R11.2 Nausea with vomiting, unspecified; Z90.710 Acquired absence of both cervix and uterus; N28.9 Disorder of kidney and ureter, unspecified; K31.84 Gastroparesis; Z85.89 Personal history of malignant neoplasm of other organs and systems
CPT/HCPCS: 80048; 80307; 81001; 96361; 96365; 96366; 96368; 96372; 96375; 99282; J7030; J7050; A4216; J2405; J3490

== ENCOUNTER 2024-07-20 18:50 | Emergency (ER) | payer MEDICAID, SELFPAY ==
[2024-07-20 18:50] VITALS: BP 142/105; PULSE 79; RESP 20; TEMP 36.9; O2SAT 98
[2024-07-20] MEDS: Haloperidol Lactate 5 MG/ML Vial 2 MG IV (19:48)
--- NOTE | 2024-07-20 20:00 | RAD_ITS ---
EXAM: XR ABDOMEN, 2 VIEWS AND XR CHEST, 1 VIEW CLINICAL INDICATION: pain TECHNIQUE: Frontal view of the chest, frontal view of the abdomen/pelvis and upright or decubitus view of the abdomen. COMPARISON: CT abdomen and pelvis, 07/08/2021. FINDINGS: CHEST: LUNGS AND PLEURAL SPACES: No significant abnormality. No consolidation or edema. No pneumothorax. No effusion. HEART: No significant abnormality. Cardiac silhouette not enlarged. MEDIASTINUM: Central airways and mediastinal contour are unremarkable. ABDOMEN: INTRAPERITONEAL SPACE: No free air. GASTROINTESTINAL TRACT: No significant abnormality. Non-obstructive. No bowel or stomach distention. ORGANS: Normal as visualized. No organomegaly. No abnormal calcifications. TUBES, LINES AND DEVICES: None. BONES/JOINTS: Scoliotic curvature and degenerative changes in the spine. SOFT TISSUES: No significant findings. RAD/Acute Abdomen Inc Chest IMPRESSION: No acute findings in the chest, abdomen or pelvis. Electronically Signed: John Renee DO at 21:24 EST ,
[2024-07-20 20:50] VITALS: BP 168/106; PULSE 106; RESP 18; O2SAT 98
--- NOTE | 2024-07-20 21:02 | ED.VIS.GI ---
HPI HPI - GI History of Present Illness Chief Complaint: Abd Pain Narrative Narrative: 24-year-old female presents with her mother and her boyfriend because of nausea and vomiting. She has history of gastroparesis. They relate history that this is her fifth visit to the ER in the last few days, and she was most recently seen today at [facility] where she had a negative workup. She had a CT scan of the abdomen and pelvis which showed no acute process the other day. They state that laboratory work was performed, and her electrolytes were replenished. She had been seen here in the emergency department 2 days ago, and was diagnosed with cannabis hyperemesis. Her talk screen was positive for cannabis and reportedly she had used within the last week. Patient and her significant other states that she went home from the emergency department, and experienced nausea and vomiting again. They were told that she needs to come to [facility] emergency department because her bedspring assembler Dr. Gunn is here. She states she is not really vomiting but having dry heaving and has diffuse abdominal pain as well. [facility] Medical History Gastroparesis Cyclic vomiting syndrome History of alcohol abuse Ureteral stricture, left Retained ureteral stent Hypertension Depression Ureterolithiasis Ureter injury Non-smoker Endometrial cancer PCOS (polycystic ovarian syndrome) Home Medications ?Medication ?Instructions ?Recorded ?Last Taken ?Type acetaminophen 500 mg capsule 1,000 mg (2 x 500 mg) PO Q8H PRN 12/26/22 Unknown Rx PRN pain #60 caps amitriptyline 10 mg tablet 10 mg PO QHS #30 TABLETS 04/28/24 Unknown Rx metoclopramide HCl 5 mg/5 mL oral 10 mg (10 mL) PO TID #1,000 mL 04/28/24 Unknown Rx solution ondansetron 4 mg disintegrating 4 mg PO Q6H PRN nausea and 04/28/24 Unknown Rx tablet vomiting #20 tabs pantoprazole 40 mg tablet,delayed 40 mg PO BID #60 TABLETS 04/28/24 Unknown Rx release gabapentin 100 mg capsule 200 mg (2 x 100 mg) PO TID #180 05/24/24 Unknown Rx caps Allergy/AdvReac Type Severity Reaction Status Date / Time ceftriaxone (From Rocephin) Allergy Hives Verified 07/20/24 18:50 promethazine (From Phenergan) Allergy Vomiting Verified 07/20/24 18:50 Ringer's solution,lactated Allergy Hives Verified 07/20/24 18:50 Family History Father No problems noted. Mother Anxiety and depression GERD (gastroesophageal reflux disease) Surgical History History of renal stent History of hysterectomy for cancer Social History household members: family Smoking Status: Never smoker alcohol intake: former substance use type: marijuana and other details: No marijuana use in the last month ROS ROS ED ROS Narrative Review of systems positive for diffuse abdominal pain, nausea and vomiting/dry heaving. No fevers or chills. No exacerbating or alleviating factors. EXAM Physical Exam Narrative Exam Narrative: Afebrile. Vital signs noted. Regular rate and rhythm. Lungs clear to auscultation bilaterally. Abdomen is soft with minimal diffuse tenderness to palpation, no rebound or guarding. Neurological examination nonfocal and nonlateralizing. Const Vital Signs: 07/20/24 18:50 07/20/24 20:50 Temperature 98.4 F Temperature Source Oral Pulse Rate 79 106 H Respiratory Rate 20 H 18 Blood Pressure 142/105 H 168/106 H Blood Pressure Mean 117 126 Pulse Ox 98 98 Oxygen Delivery Method Room Air MDM MDM MDM Narrative Medical decision making narrative: Differential diagnosis includes but not limited to cyclic vomiting syndrome versus cannabis induced hyperemesis versus gastroparesis. I have low suspicion for obstruction. She just came from an outside facility where she had laboratory work drawn. I reviewed her prior ED visits. Previously, during her last visit, she stated that the capsaicin alleviated her abdominal pain, however now she states as well as her mother that the capsaicin only burned her skin. She takes Bentyl at home as well as Reglan and amitriptyline, and attempted to take it this afternoon, but reportedly vomited it back up. I will obtain x-rays of the abdomen and the acute abdominal series to look for evidence of obstruction. She was administered Haldol intravenously in the event that this is hyperemesis and previous medications in the hyperemesis protocol were reportedly ineffective. X-rays of the acute abdominal series were obtained and interpreted by myself independently and there is no obstructive pattern, no pneumonia or pneumothorax on the chest x-ray. I reviewed the radiology report which confirms my independent interpretation. Initially, after Haldol, she requested something for her abdominal pain. She was administered Bentyl. I do not feel that she requires laboratory work. I had a lengthy discussion with the patient and her boyfriend after review of her previous ED visits. She states she is still having abdominal pain, but does not want to try capsaicin again. At home, usually a heating pad can help relieve her pain or warm running water in the shower. She was advised to perform these at home again. I discussed at length with her that narcotic pain medication is not indicated for her abdominal pain. She states that other methods and medications are ineffective. She is willing to try Toradol and as part of the cyclic vomiting medication/protocol Ativan 1 mg intravenously. I was able to discuss the patient with Dr. Gunn with gastroenterology who agrees with outpatient follow-up. I do not feel she requires observation or admission at this time. Disposition is discharged home in stable condition. History & Record Review Discussion w/independent historian: Patient and Significant other Additional record(s) reviewed:: Prior ED visit Radiography Diagnostic Testing: Clinical Impression(s) from Imaging Studies Acute Abdomen Series 07/20/24 20:00 IMPRESSION: No acute findings in the chest, abdomen or pelvis. Electronically Signed: John Renee DO at 21:24 EST , Discharge Plan Triage Chief Complaint: Abd Pain ED Provider: Kevin San Dx/Rx/DC Orders Clinical Impression: Cyclic vomiting syndrome, Cannabis hyperemesis syndrome concurrent with and due to cannabis abuse Instructions: Cannabinoid Hyperemesis Syndrome, ED Cyclic Vomiting Syndrome, ED Abdominal Pain Unkn Cause Fem Prescriptions: No Action acetaminophen 500 mg capsule 1,000 mg PO Q8H PRN PRN (Reason: pain) Qty: 60 0RF amitriptyline 10 mg tablet 10 mg PO QHS Qty: 30 5RF ondansetron 4 mg tablet,disintegrating 4 mg PO Q6H PRN (Reason: nausea and vomiting) Qty: 20 2RF pantoprazole 40 mg tablet,delayed release (DR/EC) 40 mg PO BID Qty: 60 5RF metoclopramide HCl 5 mg/5 mL solution 10 mg PO TID Qty: 1000 5RF gabapentin 100 mg capsule 200 mg PO TID Qty: 180 2RF Primary Care Provider: Tj Willams Referrals: Tj Willams MD [Primary Care Provider] - Friend,DO Francisco [Med Staff - Active Staff] - As soon as possible Print Language: Serbian Disposition Disposition: Home, Self Care
[2024-07-20] MEDS: Dicyclomine 20 MG/2 ML Vial IM (21:54)
[2024-07-20] MEDS: LORazepam 2 MG/ML Syringe 1 MG IV (22:41)
[2024-07-20] MEDS: Ketorolac 15 MG/ML Vial IV (22:41)
[2024-07-20 22:46] VITALS: BP 142/89; PULSE 89; RESP 18; TEMP 36.4; O2SAT 98
== END 2024-07-20 22:47 | disposition home or self-care (01) ==
PROVIDERS: Emergency Provider Emergency Medicine; PCP Family Medicine; Visit Provider Emergency Medicine
DX: F12.188 Cannabis abuse with other cannabis-induced disorder (principal); R11.15 Cyclical vomiting syndrome unrelated to migraine; Z90.710 Acquired absence of both cervix and uterus; I10 Essential (primary) hypertension; Z85.89 Personal history of malignant neoplasm of other organs and systems; F32.A Depression, unspecified; Z79.899 Other long term (current) drug therapy
CPT/HCPCS: 74022; 96372; 96374; 96375; 99282; A4216

== ENCOUNTER 2024-07-23 10:05 | Observation (INO) | payer MEDICAID, SELFPAY ==
[2024-07-23 10:06] VITALS: BP 146/104; PULSE 111; RESP 22; TEMP 37.2; O2SAT 100
--- NOTE | 2024-07-23 10:52 | RAD_ITS ---
HISTORY: cp. TECHNIQUE: XR Chest 2 Views. COMPARISON: 07/20/2024. FINDINGS: CARDIOMEDIASTINAL BORDERS: Cardiac silhouette within normal limits in size. Mediastinal contour unremarkable. LUNGS: Radiographically clear. PLEURA: No pleural effusion or pneumothorax seen. OSSEOUS STRUCTURES: Unremarkable. RAD/Chest PA and Lateral IMPRESSION: No acute cardiopulmonary process identified. Electronically Signed: Mercy Gutierrez MD at 11:40 EST ,
--- NOTE | 2024-07-23 10:52 | EKG12_ITS ---
Test Reason : N/V Blood Pressure : */* mmHG Vent. Rate : 84 BPM Atrial Rate : 84 BPM P-R Int : 138 ms QRS Dur : 92 ms QT Int : 356 ms P-R-T Axes : 38 68 47 degrees QTcB Int : 420 ms Normal sinus rhythm with sinus arrhythmia Normal ECG Confirmed by RYAN MARTINEZ, DANILO ([id number]), graphics editor GAGANDEEP CHU ([id number]) on 07/25/2024 8:11:38 AM Referred By: Confirmed By: DANILO DAVIS MD
[2024-07-23] MEDS: Dicyclomine 20 MG/2 ML Vial IM (11:33)
[2024-07-23] MEDS: Metoclopramide 10 MG/2 ML Vial IV (11:33)
[2024-07-23] MEDS: Ketorolac 15 MG/ML Vial IV (11:33)
[2024-07-23] MEDS: Ondansetron 4 MG/2 ML Vial IV ×2 (11:33→23:10)
[2024-07-23 11:54] LABS: Absolute Lymphocyte Count 1.91 X10^3/uL (0.83-4.51); Absolute Neutrophil Count 12.8 X10^3/uL (2.0-7.7); Basophil# 0.06 X10^3/uL; Basophil% 0.4 % (0-1); Eosinophils% 1.8 % (0-5); Hematocrit 44.7 % (37-47); Hemoglobin 14.2 g/dL (12.0-15.0); Lymphocyte # 1.91 X10^3/ul (0.83-4.51); Lymphocyte % 11.7 % (19-41); Mean Corp Hgb Conc 31.8 g/dL (32-36); Mean Corpuscular Hgb 25.1 pg (27.0-32.0); Mean Corpuscular Volume 79.1 fL (81-99); Mean Platelet Vol. 8.9 fl (6.2-12.0); Monocyte# 1.16 X10^3/uL; Monocyte% 7.1 % (0-10); NRBC Flagged by Analyzer 0 % (0-5); Neutrophil # 12.82 X10^3/uL (2.7-7.7); Neutrophil % 78.3 % (47-70); Platelet Count 395 K/mm3 (150-450); RBC Distribution Width CV 14.7 % (11.6-14.6); RBC Distribution Width SD 40.9 fl (35.1-43.9); Red Blood Count 5.65 M/mm3 (4.2-5.4); White Blood Count 16.4 K/mm3 (4.4-11.0)
--- NOTE | 2024-07-23 11:54 | EDS_ITS ---
HPI History of Present Illness Chief Complaint: Nausea/Vomiting PFSH PFSH Medical History Gastroparesis Cyclic vomiting syndrome History of alcohol abuse Ureteral stricture, left Retained ureteral stent Hypertension Depression Ureterolithiasis Ureter injury Non-smoker Endometrial cancer PCOS (polycystic ovarian syndrome) Home Medications ?Medication ?Instructions ?Recorded ?Last Taken ?Type acetaminophen 500 mg capsule 1,000 mg (2 x 500 mg) PO Q8H PRN 12/26/22 Unknown Rx PRN pain #60 caps amitriptyline 10 mg tablet 10 mg PO QHS #30 TABLETS 04/28/24 Unknown Rx metoclopramide HCl 5 mg/5 mL oral 10 mg (10 mL) PO TID #1,000 mL 04/28/24 Unknown Rx solution pantoprazole 40 mg tablet,delayed 40 mg PO BID #60 TABLETS 04/28/24 Unknown Rx release gabapentin 100 mg capsule 200 mg (2 x 100 mg) PO TID #180 05/24/24 Unknown Rx caps sucralfate 100 mg/mL oral 10 ml PO QAC #414 mL 07/21/24 Unknown Rx suspension alprazolam 0.5 mg tablet 0.5 mg PO TID PRN abdominal pain 07/22/24 Unknown Rx #90 tabs hyoscyamine sulfate 0.125 mg 0.125 mg PO TID PRN dyspepsia #90 07/22/24 Unknown Rx disintegrating tablet tabs ondansetron 4 mg disintegrating 4 mg PO Q6H PRN nausea and 07/22/24 Unknown Rx tablet vomiting #90 tabs scopolamine base 1 mg over 3 days 1 patch transdermal Q72H #4 ea 07/22/24 Unknown Rx transdermal patch Allergy/AdvReac Type Severity Reaction Status Date / Time ceftriaxone (From Rocephin) Allergy Hives Verified 07/23/24 10:06 promethazine (From Phenergan) Allergy Vomiting Verified 07/23/24 10:06 Ringer's solution,lactated Allergy Hives Verified 07/23/24 10:06 Family History Father No problems noted. Mother Anxiety and depression GERD (gastroesophageal reflux disease) Surgical History History of renal stent History of hysterectomy for cancer Social History household members: family Smoking Status: Never smoker alcohol intake: former substance use type: marijuana and other details: No marijuana use in the last month EXAM Physical Exam Const Vital Signs: 07/23/24 10:06 Temperature 98.9 F Temperature Source Temporal Pulse Rate 111 H Respiratory Rate 22 H Blood Pressure 146/104 H Blood Pressure Mean 118 Pulse Ox 100 Oxygen Delivery Method Room Air [facility] MDM Radiography Diagnostic Testing: Clinical Impression(s) from Imaging Studies Chest X-Ray 07/23/24 10:52 IMPRESSION: No acute cardiopulmonary process identified. Electronically Signed: Mercy Gutierrez MD at 11:40 EST , Discharge Plan Triage Chief Complaint: Nausea/Vomiting ED Provider: Jovanni John Dx/Rx/DC Orders Prescriptions: No Action ondansetron 4 mg tablet,disintegrating 4 mg PO Q6H PRN (Reason: nausea and vomiting) Qty: 90 2RF hyoscyamine sulfate 0.125 mg tablet,disintegrating 0.125 mg PO TID PRN (Reason: dyspepsia) Qty: 90 0RF alprazolam 0.5 mg tablet 0.5 mg PO TID PRN (Reason: abdominal pain) Qty: 90 0RF scopolamine base 1 mg over 3 days patch 3 day 1 patch transdermal Q72H Qty: 4 0RF acetaminophen 500 mg capsule 1,000 mg PO Q8H PRN PRN (Reason: pain) Qty: 60 0RF amitriptyline 10 mg tablet 10 mg PO QHS Qty: 30 5RF pantoprazole 40 mg tablet,delayed release (DR/EC) 40 mg PO BID Qty: 60 5RF metoclopramide HCl 5 mg/5 mL solution 10 mg PO TID Qty: 1000 5RF gabapentin 100 mg capsule 200 mg PO TID Qty: 180 2RF sucralfate 100 mg/mL suspension 10 ml PO QAC Qty: 414 0RF Primary Care Provider: Tj Willams Referrals: Tj Willams MD [Primary Care Provider] - Print Language: Syriac
--- NOTE | 2024-07-23 11:55 | EDS_ITS ---
HPI History of Present Illness Chief Complaint: Nausea/Vomiting Narrative Narrative: Patient is a 24-year-old female who is presenting to the ER today with chief complaint of intractable nausea, vomiting, abdominal cramping, inability to tolerate food and liquid for the past 6 to 7 days. Patient says that she has been at [facility] 3 times, today being the third. Patient says that she has been [place] [facility] twice in the past 7 days. Patient mother is at bedside along with boyfriend. Mother over talks patient and boyfriend with rapid speech. Patient does have a GI physician, Dr. Medina. They did call the GI service today, there is a nurse practitioner in the building they could see her today they were told, the patient was recommended to come to the ER. Patient does take acid reflux medication with no relief. Patient has history of marijuana use. Mother is very adamant that her marijuana use is not related to any of her symptoms of chronic nausea, vomiting, abdominal pain, GI upset. Patient has no headache or neck pain. She is also having chest tightness and chest pain. Patient had a hysterectomy. Patient had uterine cancer history. Patient still has both her ovaries. Patient still has her gallbladder and appendix. No other acute complaints at this time. Patient been trying to drink fluids this week without success. Patient does have Zofran that has not been helping. Patient is allergic to the Phenergan, she has not been able to do Phenergan suppo sitories. Patient also been prescribed Xanax, she states she has not been able to keep that down either. Patient states she is not going through withdrawal from opiates or benzos. [facility] Medical History Gastroparesis Cyclic vomiting syndrome History of alcohol abuse Ureteral stricture, left Retained ureteral stent Hypertension Depression Ureterolithiasis Ureter injury Non-smoker Endometrial cancer PCOS (polycystic ovarian syndrome) Home Medications ?Medication ?Instructions ?Recorded ?Last Taken ?Type acetaminophen 500 mg capsule 1,000 mg (2 x 500 mg) PO Q8H PRN 12/26/22 Unknown Rx PRN pain #60 caps amitriptyline 10 mg tablet 10 mg PO QHS #30 TABLETS 04/28/24 Unknown Rx pantoprazole 40 mg tablet,delayed 40 mg PO BID #60 TABLETS 04/28/24 Unknown Rx release gabapentin 100 mg capsule 200 mg (2 x 100 mg) PO TID #180 05/24/24 Unknown Rx caps sucralfate 100 mg/mL oral 10 ml PO QAC #414 mL 07/21/24 Unknown Rx suspension alprazolam 0.5 mg tablet 0.5 mg PO TID PRN abdominal pain 07/22/24 Unknown Rx #90 tabs hyoscyamine sulfate 0.125 mg 0.125 mg PO TID PRN dyspepsia #90 07/22/24 Unknown Rx disintegrating tablet tabs ondansetron 4 mg disintegrating 4 mg PO Q6H PRN nausea and 07/22/24 Unknown Rx tablet vomiting #90 tabs scopolamine base 1 mg over 3 days 1 patch transdermal Q72H #4 ea 07/22/24 Unknown Rx transdermal patch dicyclomine 20 mg tablet 20 mg PO 4X/DAY PRN abdominal pain 07/23/24 Unknown History metoclopramide HCl 5 mg tablet 5 mg PO 4X/DAY PRN nausea/vomiting 07/23/24 Unknown History Allergy/AdvReac Type Severity Reaction Status Date / Time ceftriaxone (From Rocephin) Allergy Hives Verified 07/23/24 10:06 promethazine (From Phenergan) Allergy Vomiting Verified 07/23/24 10:06 Ringer's solution,lactated Allergy Hives Verified 07/23/24 10:06 Family History Father No problems noted. Mother Anxiety and depression GERD (gastroesophageal reflux disease) Surgical History History of renal stent History of hysterectomy for cancer Social History household members: family Smoking Status: Never smoker alcohol intake: former substance use type: marijuana and other details: No marijuana use in the last month ROS ROS ED ROS Narrative REVIEW OF SYSTEMS: Unless otherwise stated in this report the patient's positive and negative responses for review of systems for constitutional, eyes, ENT, cardiovascular, respiratory, gastrointestinal, neurological, , musculoskeletal, and integument systems and related systems to the presenting problem are either stated in the history of present illness or were not pertinent or were negative for the symptoms and/or complaints related to the presenting medical problem. EXAM Physical Exam Narrative Exam Narrative: Vital signs reviewed and patient is not hypoxic. Patient very histrionic, traumatic as is her mother at bedside. There is a lot of rapid speech from patient and mother, there is over talking, difficult to try to get mother and patient to not talk over each other, give me information. Mother is much worse than the daughter. General: The patient appears moderate distress secondary to discomfort, pain, nausea.. Patient is resting comfortably on cart. Not toxic, lethargic, or listless. Foul body odor, poor hygiene,With patient is very histrionic, traumat ic to the edges for mother and boyfriend at bedside as well try to perform HPI and physical exam.. Skin: Warm, dry, no pallor noted. There is no rash noted. Head: Normocephalic, atraumatic Eye: Normal conjunctiva, no drainage, EOMI. PERRL. Ears, Nose, Mouth, and Throat: oral mucosa is moist. Nares patent. Mouth without vesicles. Cardiovascular: Regular Rate and Rhythm, no murmurs, gallops, or rubs Respiratory: Patient is in no distress, no accessory muscle use, lungs are clear to auscultation, no wheezing, rales or rhonchi Back: non-tender, no CVA tenderness bilaterally to percussion. NO CTLS midline or paraspinal tenderness to palpation. GI: Soft, obese, moderate diffuse tenderness to palpation, no masses appreciated. No peritoneal signs, no pain on proportion, mild rebound, mild gu arding, patient is moaning and mild hyperventilating during physical exam, no rigidity noted. Musculoskeletal: The patient has full range of motion of all extremities and joints with no difficulty. Patient has no motor, no sensory deficits. Neurological: A&O x4, normal speech, no focal neurological deficits. Psychiatric: Cooperative Const Vital Signs: 07/23/24 12:36 Temperature 97.5 F L Temperature Source Temporal Pulse Rate 72 Respiratory Rate 18 Blood Pressure 150/100 H Blood Pressure Mean 116 Pulse Ox 96 Oxygen Delivery Method Room Air MDM MDM MDM Narrative Medical decision making narrative: Patient's potassium was 2.6. Patient was given oral and IV potassium. Patient was initially given Pepcid, IV Toradol, and Bentyl for pain. Patient was told there is no indication for narcotics for her pain. Patient has told nursing staff that she has received Dilaudid and all the other ERs that she has been at multiple times. There is no acute indication for narcotics, she has been told this several times. Patient will be admitted because this is her fifth or sixth time to the hospital for intractable nausea, vomiting, abdominal pain. This may be related to cyclic nausea and vomiting. Patient has seen Dr. Gunn for GI team. Mother states that she did call Dr. Gunn office, and they found out that a nurse practitioner is in the hospital this weekend for GI services. Mother states they were recommended to come into the hospital for evaluation. Patient was given oral Valium to help with abdominal smooth intestine julia, pain, and for some mild sedation secondary to help with patient's moaning, abdominal julia, pain, and histrionic/dramatic presentation. Patient does not appear to have peritoneal signs, patient does not appear to have a surgical abdomen. Patient has had multiple CTs of the abdomen pelvis. Patient abdomen will be reevaluated by hospitalist, Dr. Dawkins and patient will be admitted to the hospital for further evaluation. She has been receiving IV potassium in the ER. Patient has been on currently continuous cardiac monitoring with IV potassium infusion. Critical care time 32 minutes exclusive from separate billable procedures that were performed. The following was considered in the determination of critical care but not limited to the level of medical decision making, intensive cardiac and/or respiratory monitoring, frequent vital sign monitoring, evaluation of laboratory studies, evaluation of radiographic studies, oxygen monitoring, and constant monitoring and speaking to family at bedside Lab Data Labs: Laboratory Results - last 24 hr 07/23/24 07/23/24 07/23/24 10:40 11:40 12:19 WBC 16.4 H RBC 5.65 H Hgb 14.2 Hct 44.7 MCV 79.1 L MCH 25.1 L MCHC 31.8 L RDW Std Deviation 40.9 RDW Coeff of Roz 14.7 H Plt Count 395 MPV 8.9 Immature Gran % (Auto) 0.700 Neut % (Auto) 78.3 H Lymph % (Auto) 11.7 L [place] % (Auto) 7.1 Eos % (Auto) 1.8 Baso % (Auto) 0.4 Absolute Neuts (auto) 12.8 H Absolute Lymphs (auto) 1.91 Nucleated RBC % 0 Sodium 136 Potassium 2.6 L* Chloride 96 L Carbon Dioxide 27.0 Anion Gap 13 BUN 10 Creatinine 1.02 Est GFR (MDRD) Af Amer 85 Est GFR (MDRD) Non-Af 71 BUN/Creatinine Ratio 9.8 L Glucose 90 Lactic Acid 1.1 Calcium 9.6 Phosphorus 2.4 L Magnesium 2.3 Total Bilirubin 0.70 Direct Bilirubin 0.18 AST 13 L ALT 27 Alkaline Phosphatase 61 Total Protein 9.3 H Albumin 4.7 Globulin 4.6 H Lipase 63 Urine Color [place] Urine Clarity Cloudy Urine pH 6.0 Ur Specific [place] 1.025 Urine Protein 100 H Urine Glucose (UA) Normal Urine Ketones 150 A* Urine Occult Blood 25 H Urine Nitrite Negative Urine Bilirubin 1 H Urine Urobilinogen 1 H Ur Leukocyte Esterase 500 H Urine RBC 5-10 SEEN Urine WBC >100 SEEN Ur Squamous Epith Cells 25-50 SEEN Urine Bacteria 4+ Urine Mucus 0 SEEN Radiography Chest X-Ray - ED: Read by ED Physician (Chest x-ray shows no acute cardiopulmonary disease, no filtrate, no effusion.) Diagnostic Testing: Clinical Impression(s) from Imaging Studies Chest X-Ray 07/23/24 10:52 IMPRESSION: No acute cardiopulmonary process identified. Electronically Signed: Mercy Gutierrez MD at 11:40 EST , Gallbladder Ultrasound 07/23/24 13:59 IMPRESSION: No sonographic evidence of cholelithiasis. Electronically Signed: Mercy Gutierrez MD at 8:33 EST , EKG Initial EKG: Attestation: I personally reviewed and interpreted this EKG as follows: (EKG interpretation. Normal sinus rhythm 84 beats a minute. Normal axis deviation. No acute ST elevation, no acute ectopy. QTc of 420) Discharge Plan Dx/Rx/DC Orders Clinical Impression: Acute dehydration, Hypokalemia, Intractable nausea and vomiting Disposition Disposition: Acute Care Hospital [facility] Discharge Date/Time: 07/23/24 15:11
[2024-07-23 12:04] LABS: AST(SGOT) 13 U/L (15-37); Alanine Aminotransfer ALT/SGPT 27 U/L (13-56); Albumin, Serum 4.7 g/dL (3.2-5.0); Alkaline Phosphatase 61 U/L (45-117); Anion Gap 13 (5-15); BUN 10 mg/dL (7-18); BUN/Creat Ratio 9.8 RATIO (10-20); Bilirubin, Direct 0.18 mg/dL (0.00-0.30); Calcium,Total 9.6 mg/dL (8.5-10.1); Chloride 96 mmol/L (98-107); Creatinine, Serum 1.02 mg/dL (0.55-1.02); EST Glomerular Filtration Rate 71 mL/min (>60); Est Glom Filt Rate - Afr Amer 85 mL/min (>60); Globulin 4.6 g/dL (2.2-4.2); Glucose 90 mg/dL (74-106); Lipase 63 U/L (13-75); Potassium 2.6 mmol/L (3.5-5.1); Protein, Total 9.3 g/dL (6.4-8.2); Sodium Level 136 mmol/L (136-145)
[2024-07-23 12:23] LABS: Mucous, Urine 0 SEEN /hpf (<or=2+)
[2024-07-23 12:33] LABS: Color, Urine Amber (Yellow); Glucose, Dipstick Normal (Normal); Leukocyte Esterase-Dipstick 500 /ul (Negative); Nitrite-Dipstick Negative (Negative); Occult Blood-Urine 25 /ul (Negative); Protein-Dipstick 100 mg/dl (Negative); Specific Gravity, Urine 1.025 (1.002-1.030); Urine Bilirubin Dipstick 1 mg/dL (Negative); Urine Clarity Cloudy (Clear); Urine Urobilinogen 1 mg/dl (Normal)
[2024-07-23 12:34] LABS: Ketone-Dipstick 150 mg/dl (Negative)
[2024-07-23 12:36] VITALS: BP 150/100; PULSE 72; RESP 18; TEMP 36.4; O2SAT 96
[2024-07-23 12:38] LABS: Bacteria 4+ /hpf (None Seen); Squamous Epithelial Cells - UA 25-50 SEEN /hpf (5-10); White Blood Cells >100 SEEN /hpf (0-5)
[2024-07-23 12:38] LABS: Lactic Acid 1.1 mmol/L (0.4-1.9)
[2024-07-23 12:39] LABS: Red Blood Cells-Urine 5-10 SEEN /hpf (0-5)
[2024-07-23] MEDS: Ciprofloxacin 400 MG/200 ML BAG 200 MG IV ×2 (13:04→23:14)
[2024-07-23] MEDS: KCL 40mEq in 0.9% NS 40 MEQ/1,000 ML IV.SOLN 250 MEQ IV (13:04)
[2024-07-23 13:06] VITALS: BMI 35.8
--- NOTE | 2024-07-23 13:41 | ED.RN ---
called pharmacy to inquire about potassium
[2024-07-23] MEDS: diazePAM 5 MG Tablet PO (13:44)
[2024-07-23 13:52] LABS: Magnesium 2.3 mg/dL (1.6-2.6); Phosphorus 2.4 mg/dL (2.5-4.9)
--- NOTE | 2024-07-23 13:59 | US_ITS ---
HISTORY: Intractable nausea, vomiting. TECHNIQUE: Wyman scale and color doppler imaging was performed of the right upper quadrant. 128 images. COMPARISON: CT 12/22/2022. FINDINGS: LIVER: 13.2 cm in length. Homogeneous echotexture without focal lesion demonstrated. No intrahepatic ductal dilatation. MAIN PORTAL VEIN: Patent with flow in the appropriate direction. COMMON BILE DUCT: 4 mm in diameter. GALLBLADDER: No gallstones. 3 mm wall thickness. No pericholecystic fluid. Sonographic Terry sign negative. PANCREAS: Visualized proximal portion unremarkable. RIGHT KIDNEY: 10.1 cm in length with a cortical thickness of 2 cm. No hydronephrosis or gross renal mass demonstrated. US/Gallbladder IMPRESSION: No sonographic evidence of cholelithiasis. Electronically Signed: Mercy Gutierrez MD at 8:33 EST ,
[2024-07-23 14:34] VITALS: BP 152/91; PULSE 77; RESP 18; TEMP 36.4; O2SAT 98
--- NOTE | 2024-07-23 14:35 | ED.RN ---
notified physician unable to take PO d/t nausea and pain
--- NOTE | 2024-07-23 14:42 | ED.RN ---
called admission discharge rnphysician assistant surgery to inform that we are sending up PO potassium for pt to take on floor per Dr. John
--- NOTE | 2024-07-23 14:57 | HP.PCM.HOS_ITS ---
HPI - General General Date of Admission: 07/23/24 HPI Narrative ADDIS TORRES, is a 24 F who presents to the hospital with a weeks worth of nausea vomiting and abdominal pain. Abdominal pain is fairly diffuse and she has had significant workups in the past with multiple imaging modalities as well as an EGD. EGD was unremarkable and it was felt that she had gastroparesis with cyclic vomiting syndrome per GI. She is on multiple medications to prevent her nausea and vomiting, there is some concern that this is marijuana induced though it appears that she downplays the amount of marijuana that she uses. She is afebrile but she does have a leukocytosis. Urine sample is contaminated with squamous cells however most of her pain is in the right upper quadrant so we will obtain a right upper quadrant ultrasound in the ER. Urine culture is pending. She was given a dose of Cipro. [facility] Medical History Gastroparesis Cyclic vomiting syndrome History of alcohol abuse Ureteral stricture, left Retained ureteral stent Hypertension Depression Ureterolithiasis Ureter injury Non-smoker Endometrial cancer PCOS (polycystic ovarian syndrome) Home Medications ?Medication ?Instructions ?Recorded ?Last Taken ?Type acetaminophen 500 mg capsule 1,000 mg (2 x 500 mg) PO Q8H PRN 12/26/22 Unknown Rx PRN pain #60 caps amitriptyline 10 mg tablet 10 mg PO QHS #30 TABLETS 04/28/24 Unknown Rx pantoprazole 40 mg tablet,delayed 40 mg PO BID #60 TABLETS 04/28/24 Unknown Rx release gabapentin 100 mg capsule 200 mg (2 x 100 mg) PO TID #180 05/24/24 Unknown Rx caps sucralfate 100 mg/mL oral 10 ml PO QAC #414 mL 07/21/24 Unknown Rx suspension alprazolam 0.5 mg tablet 0.5 mg PO TID PRN abdominal pain 07/22/24 Unknown Rx #90 tabs hyoscyamine sulfate 0.125 mg 0.125 mg PO TID PRN dyspepsia #90 07/22/24 Unknown Rx disintegrating tablet tabs ondansetron 4 mg disintegrating 4 mg PO Q6H PRN nausea and 07/22/24 Unknown Rx tablet vomiting #90 tabs scopolamine base 1 mg over 3 days 1 patch transdermal Q72H #4 ea 07/22/24 Unknown Rx transdermal patch dicyclomine 20 mg tablet 20 mg PO 4X/DAY PRN abdominal pain 07/23/24 Unknown History metoclopramide HCl 5 mg tablet 5 mg PO 4X/DAY PRN nausea/vomiting 07/23/24 Unknown History Allergy/AdvReac Type Severity Reaction Status Date / Time ceftriaxone (From Rocephin) Allergy Hives Verified 07/23/24 10:06 promethazine (From Phenergan) Allergy Vomiting Verified 07/23/24 10:06 Ringer's solution,lactated Allergy Hives Verified 07/23/24 10:06 Family History Father No problems noted. Mother Anxiety and depression GERD (gastroesophageal reflux disease) Surgical History History of renal stent History of hysterectomy for cancer Social History household members: family Smoking Status: Never smoker alcohol intake: former substance use type: marijuana and other details: No marijuana use in the last month ROS Constitutional Constitutional: Denies chills, fatigue, fever(s) or malaise Eyes Eyes: Denies blurry vision ENT HEENT: Denies headache(s) or nasal discharge Cardiovascular Cardiovascular: Denies chest pain, dyspnea on exertion or syncope Respiratory/Chest Respiratory/Chest: Denies cough, shortness of breath at rest or shortness of breath with exertion Gastrointestinal Gastrointestinal: Reports abdominal pain, nausea and vomiting; Denies constipation or diarrhea Genitourinary Genitourinary: Denies dysuria Neurologic Neurologic: Denies focal weakness, numbness or tremor(s) Psychiatric Psychiatric: Denies anxiety or depression Vital Signs Vital Signs Vital Signs: 07/23/24 10:06 07/23/24 12:36 07/23/24 14:34 Temperature 98.9 F 97.5 F L 97.5 F L Temperature Source Temporal Temporal Pulse Rate 111 H 72 77 Respiratory Rate 22 H 18 18 Blood Pressure 146/104 H 150/100 H 152/91 H Blood Pressure Mean 118 116 111 Pulse Ox 100 96 98 Oxygen Delivery Method Room Air Room Air Weight Weight: 235 lb 10.786 oz Body Mass Index (BMI) 35.8 Physical Exam Narrative General: Alert, Oriented x3, Cooperative, No apparent distress HEENT: Atraumatic, PERRLA, EOMI, Normocephalic Oral: Moist Mucosa Neck: Supple, No JVD Lungs: Clear to auscultation, Normal air movement, No rhonchi, No wheeze, No rales Cardiovascular: Regular rate, Regular Rhythm, Normal S1, Normal S2, No murmurs Abdomen: Soft, diffuse abdominal pain to minimal palpation, less pain elicited to palpation by stethoscope, Non-Distended, No Hepato-splenomegaly Extremities: No edema, Capillary Refill Less than 3 Seconds Skin: No rashes, No breakdown Musculoskeletal: No Tenderness to Palpation of Joints or Extremities Neurological: No focal neurological deficits, Motor Exam 5/5 strength throughout, Sensory exam intact to light touch and pain Psych/Mental Status: Normal Affect, Appropriate Results Lab / Micro Data 07/23/24 10:40 07/23/24 10:40 Labs: Laboratory Results - last 24 hr 07/23/24 10:40: WBC 16.4 H, RBC 5.65 H, Hgb 14.2, Hct 44.7, MCV 79.1 L, MCH 25.1 L, MCHC 31.8 L, RDW Std Deviation 40.9, RDW Coeff of Roz 14.7 H, Plt Count 395, MPV 8.9, Immature Gran % (Auto) 0.700, Neut % (Auto) 78.3 H, Lymph % (Auto) 11.7 L, Douglas % (Auto) 7.1, Eos % (Auto) 1.8, Baso % (Auto) 0.4, Absolute Neuts (auto) 12.8 H, Absolute Lymphs (auto) 1.91, Nucleated RBC % 0, Sodium 136, Potassium 2.6 L*, Chloride 96 L, Carbon Dioxide 27.0, Anion Gap 13, BUN 10, Creatinine 1.02, Est GFR (MDRD) Af Amer 85, Est GFR (MDRD) Non-Af 71, BUN/Creatinine Ratio 9.8 L, Glucose 90, Calcium 9.6, Phosphorus 2.4 L, Magnesium 2.3, Total Bilirubin 0.70, Direct Bilirubin 0.18, AST 13 L, ALT 27, Alkaline Phosphatase 61, Total Protein 9.3 H, Albumin 4.7, Globulin 4.6 H, Lipase 63 07/23/24 11:40: Lactic Acid 1.1 07/23/24 12:19: Urine Color [place], Urine Clarity Cloudy, Urine pH 6.0, Ur Specific [place] 1.025, Urine Protein 100 H, Urine Glucose (UA) Normal, Urine Ketones 150 A*, Urine Occult Blood 25 H, Urine Nitrite Negative, Urine Bilirubin 1 H, Urine Urobilinogen 1 H, Ur Leukocyte Esterase 500 H, Urine RBC 5-10 SEEN, Urine WBC >100 SEEN, Ur Squamous Epith Cells 25-50 SEEN, Urine Bacteria 4+, Urine Mucus 0 SEEN Imaging Radiology Impression Chest X-Ray 07/23/24 10:52 IMPRESSION: No acute cardiopulmonary process identified. Electronically Signed: Mercy Gutierrez MD at 11:40 EST , Assessment & Plan Assessment/Plan (1) Intractable nausea and vomiting: (2) Hypokalemia: PLAN: Plan 1. Cyclic nausea and vomiting with right upper quadrant abdominal pain/gastroparesis with erosive esophagitis and gastritis ? She is on multiple medications for gastritis and gastric ulcer which we will continue ? N.p.o. ? Continue with Cipro, she gets hives from Rocephin ? Will obtain a right upper quadrant ultrasound ? Continue with IV fluids ? Urine cultures pending though she does have significant amount of bacteria and leukocyte esterase of 500, her squamous epithelial cells are elevated so could be a contaminated sample ? Previous evaluations in the emergency room indicate hyperemesis from cannabis use this is still likely a possibility ? Continue with PPI and Carafate DVT: Ambulation 75 minutes was spent on direct patient care, including documentation as well as chart review and collaboration with colleagues Charges/Coding Visit Charges Inpatient E&M: 97254 Init Hosp L3
[2024-07-23 15:26] VITALS: BMI 35.4
[2024-07-23 15:37] VITALS: BP 94/82; PULSE 70; RESP 18; TEMP 36.8; O2SAT 99
[2024-07-23] MEDS: Scopolamine 1mg/72hr Patch 1 PATCH TD (17:04)
[2024-07-23] MEDS: Sucralfate 1 GM Tablet PO (17:08)
[2024-07-23] MEDS: KCL 40mEq in 0.9% NS 40 MEQ/1,000 ML IV.SOLN 125 MEQ IV (18:06)
[2024-07-23] MEDS: Gabapentin 100 MG Capsule 200 MG PO (18:09)
[2024-07-23] MEDS: proCHLORPERazine 10 MG/2 ML Vial 5 MG IV (21:02)
[2024-07-23] MEDS: Acetaminophen 500 MG Tablet 1000 MG PO (21:03)
[2024-07-23 21:25] VITALS: RESP 15
--- NOTE | 2024-07-24 00:26 | PN.HOSP_ITS ---
Hospitalist Note Patient complaining of severe abdominal pain and specifically requesting a one- time dose of morphine. Reviewed physician daytime note and no specific request for avoidance but given history discussed with nursing staff and will dose x 1 only with continued treatments as already ordered.
[2024-07-24] MEDS: Morphine 2 MG/ML Syringe IV (00:37)
[2024-07-24 03:00] VITALS: BP 155/106; PULSE 85; RESP 15; TEMP 37.1; O2SAT 97
[2024-07-24] MEDS: KCL 40mEq in 0.9% NS 40 MEQ/1,000 ML IV.SOLN 125 MEQ IV (03:02)
[2024-07-24] MEDS: ALPRAZolam 0.5 MG Tablet PO ×2 (03:14→17:52)
[2024-07-24] MEDS: Gabapentin 100 MG Capsule 200 MG PO ×3 (06:15→22:38)
[2024-07-24] MEDS: Sucralfate 1 GM Tablet PO ×4 (06:15→22:38)
[2024-07-24 06:33] LABS: Absolute Lymphocyte Count 1.62 X10^3/uL (0.83-4.51); Basophil# 0.06 X10^3/uL; Basophil% 0.5 % (0-1); Eosinophil# 0.28 X10^3/uL; Eosinophils% 2.2 % (0-5); Hematocrit 35.5 % (37-47); Hemoglobin 11.3 g/dL (12.0-15.0); Lymphocyte # 1.62 X10^3/ul (0.83-4.51); Lymphocyte % 12.6 % (19-41); Mean Corp Hgb Conc 31.8 g/dL (32-36); Mean Corpuscular Hgb 25.7 pg (27.0-32.0); Mean Corpuscular Volume 80.7 fL (81-99); Mean Platelet Vol. 8.8 fl (6.2-12.0); Monocyte# 0.83 X10^3/uL; Monocyte% 6.5 % (0-10); NRBC Flagged by Analyzer 0 % (0-5); Neutrophil # 9.97 X10^3/uL (2.7-7.7); Neutrophil % 77.6 % (47-70); Platelet Count 294 K/mm3 (150-450); RBC Distribution Width CV 14.9 % (11.6-14.6); RBC Distribution Width SD 42.4 fl (35.1-43.9); White Blood Count 12.8 K/mm3 (4.4-11.0)
[2024-07-24 07:11] LABS: ALB/GLOB Ratio 1.1 RATIO (0.9-2.4); AST(SGOT) 15 U/L (15-37); Alanine Aminotransfer ALT/SGPT 18 U/L (13-56); Albumin, Serum 3.6 g/dL (3.2-5.0); Alkaline Phosphatase 45 U/L (45-117); Anion Gap 10 (5-15); BUN 9 mg/dL (7-18); BUN/Creat Ratio 13.9 RATIO (10-20); Calcium,Total 8.4 mg/dL (8.5-10.1); Chloride 107 mmol/L (98-107); Creatinine, Serum 0.65 mg/dL (0.55-1.02); EST Glomerular Filtration Rate 119 mL/min (>60); Est Glom Filt Rate - Afr Amer 144 mL/min (>60); Estimated Creatinine Clearance 169.84 ml/min; Globulin 3.4 g/dL (2.2-4.2); Glucose 87 mg/dL (74-106); Potassium 3.6 mmol/L (3.5-5.1); Sodium Level 138 mmol/L (136-145)
[2024-07-24 08:15] VITALS: BP 146/94; PULSE 66; RESP 16; TEMP 37.2; O2SAT 100
[2024-07-24] MEDS: Ondansetron 4 MG/2 ML Vial IV (08:27)
[2024-07-24] MEDS: 0.9% Saline Lock 10 ML Syringe IV (08:28)
[2024-07-24] MEDS: Ciprofloxacin 400 MG/200 ML BAG 200 MG IV ×2 (09:47→22:35)
[2024-07-24] MEDS: Pantoprazole Sodium 40 MG Tablet PO ×2 (10:38→22:38)
[2024-07-24] MEDS: Polyethylene Glycol 3350 17 GM PACKET PO (12:22)
[2024-07-24 13:54] VITALS: BP 170/104; PULSE 74; RESP 16; TEMP 37.1; O2SAT 100
[2024-07-24] MEDS: Acetaminophen 500 MG Tablet 1000 MG PO (14:03)
--- NOTE | 2024-07-24 14:10 | PCM.PN.HOSP ---
Subjective Subjective No issues overnight, stating that she still has some nausea but would like to advance her diet from n.p.o. to regular diet if possible Objective Data Objective Data Vital Signs: Vital Signs Temp Pulse Resp BP Pulse Ox O2 Del Method 98.7 F 74 16 170/104 H 100 Room Air 07/24/24 13:54 07/24/24 13:54 07/24/24 13:54 07/24/24 13:54 07/24/24 13:54 07/24/24 13:54 Oxygen Delivery Method Room Air Weight: 233 lb Body Mass Index (BMI) 35.4 Intake & Output: Intake and Output for Last 24 Hours 07/23/24 07/24/24 07/25/24 03:59 03:59 03:59 Intake Total 2500 / 2500 200 / 200 Balance 2500 / 2500 200 / 200 Medical Nutrition Assessment Dietitian: Malnutrition Criteria Met Start: 07/24/24 11:01 Freq: Status: Active Protocol: Document 07/24/24 11:01 CECILY (Rec: 07/24/24 11:01 CECILY [id number]) Nutrition Malnutrition Evidence of Malnutrition Exists Yes Malnutrition (severe): Acute Illness/Injury Evidenced By Suboptimal Energy Intake ( Severe),Weight Loss (Severe) Clinical Problem Acute Disease or Injury Related Malnutrition Etiology related to GI dysfunction and issues 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, 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 as evidenced by 4% 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 wt 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 and 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 Problem Recommendation Dietitian Recommendations/Changes As medically able, rec ROSALIO to transitional with 120 ml vanilla ensure plus high protein tid w/ meals Continue to monitor for changes in pt nutritional status and make additional rec as indicated Lab / Micro Data 07/24/24 05:43 07/24/24 05:43 Labs: Laboratory Results - last 24 hr 07/24/24 05:43: WBC 12.8 H, RBC 4.40, Hgb 11.3 L, Hct 35.5 L, MCV 80.7 L, MCH 25.7 L, MCHC 31.8 L, RDW Std Deviation 42.4, RDW Coeff of Roz 14.9 H, Plt Count 294, MPV 8.8, Immature Gran % (Auto) 0.600, Neut % (Auto) 77.6 H, Lymph % (Auto) 12.6 L, [place]urry % (Auto) 6.5, Eos % (Auto) 2.2, Baso % (Auto) 0.5, Absolute Neuts (auto) 10.0 H, Absolute Lymphs (auto) 1.62, Nucleated RBC % 0, Sodium 138, Potassium 3.6, Chloride 107, Carbon Dioxide 21.0, Anion Gap 10, BUN 9, Creatinine 0.65, Estim Creat Clear Calc 169.84, Est GFR (MDRD) Af Amer 144, Est GFR (MDRD) Non-Af 119, BUN/Creatinine Ratio 13.9, Glucose 87, Calcium 8.4 L, Total Bilirubin 0.50, AST 15, ALT 18, Alkaline Phosphatase 45, Total Protein 7.0, Albumin 3.6, Globulin 3.4, Albumin/Globulin Ratio 1.1 Micro: Microbiology 07/23/24 12:19 Urine, Clean Catch Urine Culture - Preliminary Mixed Gram Pos & Gram Neg Org Radiography Diagnostic Testing: Radiology Impression Gallbladder Ultrasound 07/23/24 13:59 IMPRESSION: No sonographic evidence of cholelithiasis. Electronically Signed: Mercy Gutierrez MD at 8:33 EST Reading Location ID and State: [facility] / [place] Tel , Service support , Physical Exam Narrative General: Alert, Oriented x3, Cooperative, No apparent distress HEENT: Atraumatic, PERRLA, EOMI, Normocephalic Oral: Moist Mucosa Neck: Supple, No JVD Lungs: Clear to auscultation, Normal air movement, No rhonchi, No wheeze, No rales Cardiovascular: Regular rate, Regular Rhythm, Normal S1, Normal S2, No murmurs Abdomen: Soft, minimally tender yesterday was in the right upper quadrant today she also has tenderness in the left upper quadrant, Non-Distended, No Hepato-splenomegaly Extremities: No edema, Capillary Refill Less than 3 Seconds Skin: No rashes, No breakdown Musculoskeletal: No Tenderness to Palpation of Joints or Extremities Neurological: No focal neurological deficits, Motor Exam 5/5 strength throughout, Sensory exam intact to light touch and pain Psych/Mental Status: Normal Affect, Appropriate Assessment & Plan Assessment/Plan (1) Intractable nausea and vomiting: (2) Hypokalemia: PLAN: Plan 1. Cyclic nausea and vomiting with right upper quadrant abdominal pain/gastroparesis with erosive esophagitis and gastritis ? She is on multiple medications for gastritis and gastric ulcer which we will continue ? Will trial her on a regular diet ? Continue with Cipro, urine culture demonstrates mixed specimen however her urine analysis was somewhat positive and her white count is responding ? CT from the outside hospital is negative for appendicitis or any intra-abdominal pathology, and right upper quadrant ultrasound is negative for cholecystitis or cholelithiasis ? Previous evaluations in the emergency room indicate hyperemesis from cannabis use this is still likely a possibility ? Continue with PPI and Carafate DVT: Ambulation Charges/Coding Visit Charges Inpatient E&M: 92962 Subs Hosp L2
[2024-07-24 21:00] VITALS: RESP 15
[2024-07-24 22:00] VITALS: BP 166/99; PULSE 83; RESP 15; TEMP 36.9; O2SAT 100
[2024-07-24] MEDS: proCHLORPERazine 10 MG/2 ML Vial 5 MG IV (22:34)
[2024-07-24] MEDS: Amitriptyline 10 MG Tablet PO (22:38)
[2024-07-25] MEDS: Ondansetron 4 MG/2 ML Vial IV (00:28)
[2024-07-25] MEDS: Dicyclomine 10 MG Capsule 20 MG PO (00:36)
[2024-07-25 05:00] VITALS: BP 141/90; PULSE 84; RESP 15; TEMP 36.6; O2SAT 100
[2024-07-25 07:06] LABS: Absolute Lymphocyte Count 1.89 X10^3/uL (0.83-4.51); Absolute Neutrophil Count 8.7 X10^3/uL (2.0-7.7); Basophil# 0.04 X10^3/uL; Basophil% 0.3 % (0-1); Eosinophil# 0.26 X10^3/uL; Eosinophils% 2.2 % (0-5); Hematocrit 40.8 % (37-47); Hemoglobin 12.8 g/dL (12.0-15.0); Lymphocyte # 1.89 X10^3/ul (0.83-4.51); Lymphocyte % 16.2 % (19-41); Mean Corp Hgb Conc 31.4 g/dL (32-36); Mean Corpuscular Hgb 25.2 pg (27.0-32.0); Mean Corpuscular Volume 80.5 fL (81-99); Mean Platelet Vol. 8.9 fl (6.2-12.0); Monocyte# 0.75 X10^3/uL; Monocyte% 6.4 % (0-10); NRBC Flagged by Analyzer 0 % (0-5); Neutrophil # 8.66 X10^3/uL (2.7-7.7); Neutrophil % 74.3 % (47-70); Platelet Count 315 K/mm3 (150-450); RBC Distribution Width SD 42.7 fl (35.1-43.9); Red Blood Count 5.07 M/mm3 (4.2-5.4); White Blood Count 11.7 K/mm3 (4.4-11.0)
[2024-07-25 07:35] LABS: Anion Gap 11 (5-15); BUN 7 mg/dL (7-18); BUN/Creat Ratio 8.6 RATIO (10-20); Calcium,Total 9.1 mg/dL (8.5-10.1); Chloride 103 mmol/L (98-107); Creatinine, Serum 0.82 mg/dL (0.55-1.02); EST Glomerular Filtration Rate 91 mL/min (>60); Est Glom Filt Rate - Afr Amer 110 mL/min (>60); Estimated Creatinine Clearance 134.63 ml/min; Glucose 81 mg/dL (74-106); Potassium 3.3 mmol/L (3.5-5.1); Sodium Level 136 mmol/L (136-145)
[2024-07-25 07:58] VITALS: BP 161/100; PULSE 88; RESP 16; TEMP 37.1; O2SAT 100
[2024-07-25] MEDS: proCHLORPERazine 10 MG/2 ML Vial 5 MG IV (08:07)
[2024-07-25] MEDS: 0.9% Saline Lock 10 ML Syringe IV (08:08)
[2024-07-25] MEDS: Hyoscyamine Sulfate 0.125 MG Tablet PO (09:15)
[2024-07-25] MEDS: Pantoprazole Sodium 40 MG Tablet PO (09:19)
[2024-07-25] MEDS: Ciprofloxacin 400 MG/200 ML BAG 200 MG IV (09:19)
--- NOTE | 2024-07-25 10:28 | DCINST_ITS ---
Discharge Instructions Diet Discharge Diet: No restrictions, Light diet - advance as tolerated and Soft diet Activity Discharge Activity: Return to Normal Activity Weight Bearing Status: Weight bearing as tolerated Dressing / Incision Call your doctor if you observe: Fever of 101 or Higher, Coldness, Increased Pain, Numbness or Tingling, Change in Color, Inability to urinate, Inability to have a bowel movement, Shortness of breath, Dizziness, Fainting spells, Swelling in the ankles, Chest pain, Prolonged hiccupping, Increased palpitations (irregular heartbeat) and Calf discomfort Follow Up Care When: IN 2 WEEKS Test Results: Test results from this visit will be discussed in further detail at your follow- up appointment, if applicable. Discharge Plan Admission Admit Date/Time: 07/23/24 14:00 Primary Reason for Your Visit: Diffuse nonspecific functional abdominal pain. Attending Provider: Gregory Cash Primary Care Provider: Tj Willams Consulting Providers: Cameron Dawkins Discharge Orders/Prescriptions Prescriptions: Continued ondansetron 4 mg tablet,disintegrating 4 mg PO Q6H PRN (Reason: nausea and vomiting) Qty: 90 2RF hyoscyamine sulfate 0.125 mg tablet,disintegrating 0.125 mg PO TID PRN (Reason: dyspepsia) Qty: 90 0RF alprazolam 0.5 mg tablet 0.5 mg PO TID PRN (Reason: abdominal pain) Qty: 90 0RF scopolamine base 1 mg over 3 days patch 3 day 1 patch transdermal Q72H Qty: 4 0RF acetaminophen 500 mg capsule 1,000 mg PO Q8H PRN PRN (Reason: pain) Qty: 60 0RF metoclopramide HCl 5 mg tablet 5 mg PO 4X/DAY PRN (Reason: nausea/vomiting) dicyclomine 20 mg tablet 20 mg PO 4X/DAY PRN (Reason: abdominal pain) amitriptyline 10 mg tablet 10 mg PO QHS Qty: 30 5RF pantoprazole 40 mg tablet,delayed release (DR/EC) 40 mg PO BID Qty: 60 5RF gabapentin 100 mg capsule 200 mg PO TID Qty: 180 2RF sucralfate 100 mg/mL suspension 10 ml PO QAC Qty: 414 0RF Referrals / Follow Up: Tj Willams MD [Primary Care Provider] - Within 1 Week FriendFrancisco DO [Med Staff - Active Staff] - Within 1 Month Disposition Disposition (needs filled in before D/C Order can be placed): Home, Self Care
[2024-07-25] MEDS: Sucralfate 1 GM Tablet PO (10:56)
[2024-07-25 11:11] VITALS: BP 159/100
--- NOTE | 2024-07-25 12:05 | DS.PCM_ITS ---
Providers Date of Admission: 07/23/24 Date of Discharge: 07/25/24 Primary Care Physician: Dr. Tj Willams MD Reason For Visit: N/V WITH DIFFUSE ABDOMINAL PAIN Diagnosis Discharge Diagnosis (1) Intractable nausea and vomiting: Status: Acute Code(s): R11.2 - Nausea with vomiting, unspecified (2) Hypokalemia: Status: Acute Code(s): E87.6 - Hypokalemia Medications at Discharge Home Medications acetaminophen 500 mg capsule 1,000 mg (2 x 500 mg) PO Q8H PRN PRN pain #60 caps 12/26/22 amitriptyline 10 mg tablet 10 mg PO QHS #30 TABLETS 04/28/24 pantoprazole 40 mg tablet,delayed release 40 mg PO BID #60 TABLETS 04/28/24 gabapentin 100 mg capsule 200 mg (2 x 100 mg) PO TID #180 caps 05/24/24 sucralfate 100 mg/mL oral suspension 10 ml PO QAC #414 mL 07/21/24 alprazolam 0.5 mg tablet 0.5 mg PO TID PRN abdominal pain #90 tabs 07/22/24 hyoscyamine sulfate 0.125 mg disintegrating tablet 0.125 mg PO TID PRN dyspepsia #90 tabs 07/22/24 ondansetron 4 mg disintegrating tablet 4 mg PO Q6H PRN nausea and vomiting #90 tabs 07/22/24 scopolamine base 1 mg over 3 days transdermal patch 1 patch transdermal Q72H #4 ea 07/22/24 dicyclomine 20 mg tablet 20 mg PO 4X/DAY PRN abdominal pain 07/23/24 metoclopramide HCl 5 mg tablet 5 mg PO 4X/DAY PRN nausea/vomiting 07/23/24 Hospital Course Summary of Care Provided Hospital Course: 24-year-old female was admitted with 1 week history of nausea vomiting and abdominal pain. Her abdominal pain is actually more like a discomfort in lower quadrants and it is not tender on exam. 1. Cyclic nausea and vomiting with right upper quadrant abdominal pain/discomfort with history of gastroparesis with erosive esophagitis and gastritis ? She is on multiple medications for gastritis and gastric ulcer which includes pantoprazole, sucralfate, ondansetron, scopolamine, metoclopramide, amitriptyline and gabapentin. ?Diet was advanced to solids.CT of the abdomen from the outside hospital is negative for appendicitis or any intra-abdominal pathology, and right upper quadrant ultrasound is negative for cholecystitis or cholelithiasis. Patient had multiple evaluations in the ED which shows hyperemesis from cannabis. Discussed with the GI DrAndrew Gunn and she was seen in the office on 07/22. Advised to follow-up in the GI office. 2. UA showed has high squamous epithelium with WBC more than 100 cells, bacteria 4+ but urine culture shows mixed gram-positive and negative organisms therefore UTI ruled out. Patient had Cipro since admission which is discontinued. 3. History of uterine cancer status post hysterectomy and ureteric injury: Patient follows Dr. Vanegas. Follow-up outpatient. DVT: Ambulation Physical Exam Narrative Seen and examined. Complain of bilateral lower abdominal discomfort. Nausea and vomiting has improved. Physical exam General: Alert, Oriented x3, Cooperative HEENT: Atraumatic, PERRLA, EOMI, Normocephalic Oral: No Gingival or Mucosal Lesions/ Ulcerations Neck: Supple, No JVD, Negative Carotid Bruits Chest wall/Lungs: Air entry diminished in bilateral lung bases. No crepitation/rhonchi Cardiovascular: Regular rate, Regular Rhythm, Normal S1, Normal S2, No M/G/R Abdomen: Bowel Sounds Present, Soft, Non Tender, Non-Distended. : No dysuria. No renal angle tenderness. No suprapubic tenderness. Extremities: No edema, Capillary Refill Less than 3 Seconds Skin: No rashes, No breakdown Musculoskeletal: No Tenderness to Palpation of Joints or Extremities Neurological: Cranial nerves II-XII grossly intact, DTR 2+/4. No acute focal neurological deficit. Psych/Mental Status: Flat affect. 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 Problem Recommendation Dietitian Recommendations/Changes As medically able, rec ROSALIO to transitional with 120 ml vanilla ensure plus high protein tid w/ meals Continue to monitor for changes in pt nutritional status and make additional rec as indicated Weight / BMI Weight Weight: 233 lb Body Mass Index (BMI) 35.4 ABG / Lab / Microbiology Data 07/25/24 06:36 07/25/24 06:36 Laboratory: Laboratory Results - last 24 hr 07/25/24 06:36: WBC 11.7 H, RBC 5.07, Hgb 12.8, Hct 40.8, MCV 80.5 L, MCH 25.2 L , MCHC 31.4 L, RDW Std Deviation 42.7, RDW Coeff of Roz 15.0 H, Plt Count 315, MPV 8.9, Immature Gran % (Auto) 0.600, Neut % (Auto) 74.3 H, Lymph % (Auto) 16.2 L, [place] % (Auto) 6.4, Eos % (Auto) 2.2, Baso % (Auto) 0.3, Absolute Neuts (auto) 8.7 H, Absolute Lymphs (auto) 1.89, Nucleated RBC % 0, Sodium 136, Potassium 3.3 L, Chloride 103, Carbon Dioxide 23.0, Anion Gap 11, BUN 7, Creatinine 0.82, Estim Creat Clear Calc 134.63, Est GFR (MDRD) Af Amer 110, Est GFR (MDRD) Non-Af 91, BUN/Creatinine Ratio 8.6 L, Glucose 81, Calcium 9.1 Microbiology: Microbiology 07/23/24 12:19 Urine, Clean Catch Urine Culture - Final Mixed Gram Pos & Gram Neg Org D/C Instructions Discharge Diet: No restrictions, Light diet - advance as tolerated and Soft diet Weight Bearing Status: Weight bearing as tolerated Call your doctor if you observe: Fever of 101 or Higher, Coldness, Increased Pain, Numbness or Tingling, Change in Color, Inability to urinate, Inability to have a bowel movement, Shortness of breath, Dizziness, Fainting spells, Swelling in the ankles, Chest pain, Prolonged hiccupping, Increased palpitations (irregular heartbeat) and Calf discomfort When: IN 2 WEEKS Meaningful Use Info Meaningful Use Meaningful Use Diagnoses (Choose all that apply): None applicable Ischemic Stroke Statin Dosing Therapy Reference: STATIN DOSE THERAPY REFERENCE: * Patients > 75 years receive moderate or high dose statin therapy. * Patients 75 years or YOUNGER should receive HIGH intensity statin dose unless contraindicated. You will be required to document reason for non-treatment if statin daily dose does not meet guidelines. HIGH DOSE STATIN THERAPY DAILY Atorvastatin > than or = to 40 mg Rosuvastatin > than or = to 20 mg Amlodipine + Atorvastatin > than or = to 2.5/40 mg Ezetimibe + Simvastatin 10/80 mg Simvastatin 80mg Discharge Plan Admission Admit Date/Time: 07/23/24 14:00 Primary Reason for Your Visit: Diffuse nonspecific functional abdominal pain. Attending Provider: Gregory Cash Primary Care Provider: Tj Willams Consulting Providers: Cameron Dawkins Discharge Orders/Prescriptions Prescriptions: Continued ondansetron 4 mg tablet,disintegrating 4 mg PO Q6H PRN (Reason: nausea and vomiting) Qty: 90 2RF hyoscyamine sulfate 0.125 mg tablet,disintegrating 0.125 mg PO TID PRN (Reason: dyspepsia) Qty: 90 0RF alprazolam 0.5 mg tablet 0.5 mg PO TID PRN (Reason: abdominal pain) Qty: 90 0RF scopolamine base 1 mg over 3 days patch 3 day 1 patch transdermal Q72H Qty: 4 0RF acetaminophen 500 mg capsule 1,000 mg PO Q8H PRN PRN (Reason: pain) Qty: 60 0RF metoclopramide HCl 5 mg tablet 5 mg PO 4X/DAY PRN (Reason: nausea/vomiting) dicyclomine 20 mg tablet 20 mg PO 4X/DAY PRN (Reason: abdominal pain) amitriptyline 10 mg tablet 10 mg PO QHS Qty: 30 5RF pantoprazole 40 mg tablet,delayed release (DR/EC) 40 mg PO BID Qty: 60 5RF gabapentin 100 mg capsule 200 mg PO TID Qty: 180 2RF sucralfate 100 mg/mL suspension 10 ml PO QAC Qty: 414 0RF Referrals / Follow Up: Tj Willams MD [Primary Care Provider] - Within 1 Week (Called this office. Dr. Willams is no longer in this practice. The patient hasn't had appointment in this office in over a year and was a no show for that appointment. The office stated that she would have to reestablish with this office to make appointment. ) Cate Vanegas MD [Med Staff - Active Staff] - Within 2 Weeks (I got the answer machine when trying to make this appointment. I left the patients phone number on the machine for staff to call the patient and set up a appointment. If the patient does not here from this office in 24hrs, she should call the office again to set up the appointment.) Friend,DO Francisco [Med Staff - Active Staff] - 08/30/24 11:30 am Disposition Disposition (needs filled in before D/C Order can be placed): Home, Self Care Charges/Coding Visit Charges Inpatient E&M: 14679 Disch Hosp >30min
--- NOTE | 2024-07-25 12:10 | CASEMGMT ---
EMY CM into pt room, provided pt with a local healthcare directory. Pt states her mother is working on finding a PCP for her. Pt denies any homegoing needs at this time.
[2024-07-25] MEDS: Chlorthalidone 50 MG Tablet 12.5 MG PO (12:50)
--- NOTE | 2024-07-25 13:20 | PHA.DC_ITS ---
Pharmacy [facility] Reconciliation Pharmacy Service has performed discharge medication reconciliation for this patient. The patient's discharge medication list was reviewed for discrepancies and discrepancies were resolved. Medications at Discharge Home Medications acetaminophen 500 mg capsule 1,000 mg (2 x 500 mg) PO Q8H PRN PRN pain #60 caps 12/26/22 amitriptyline 10 mg tablet 10 mg PO QHS #30 TABLETS 04/28/24 pantoprazole 40 mg tablet,delayed release 40 mg PO BID #60 TABLETS 04/28/24 gabapentin 100 mg capsule 200 mg (2 x 100 mg) PO TID #180 caps 05/24/24 sucralfate 100 mg/mL oral suspension 10 ml PO QAC #414 mL 07/21/24 alprazolam 0.5 mg tablet 0.5 mg PO TID PRN abdominal pain #90 tabs 07/22/24 hyoscyamine sulfate 0.125 mg disintegrating tablet 0.125 mg PO TID PRN dyspepsia #90 tabs 07/22/24 ondansetron 4 mg disintegrating tablet 4 mg PO Q6H PRN nausea and vomiting #90 tabs 07/22/24 scopolamine base 1 mg over 3 days transdermal patch 1 patch transdermal Q72H #4 ea 07/22/24 dicyclomine 20 mg tablet 20 mg PO 4X/DAY PRN abdominal pain 07/23/24 metoclopramide HCl 5 mg tablet 5 mg PO 4X/DAY PRN nausea/vomiting 07/23/24
== END 2024-07-25 15:01 | disposition home or self-care (01) ==
LOC: ED 11:43 → MS3 14:31
PROVIDERS: Admitting Provider Family Medicine; Emergency Provider Emergency Medicine; PCP Family Medicine; Visit Provider Internal Medicine
DX: R11.15 Cyclical vomiting syndrome unrelated to migraine (principal); E87.6 Hypokalemia; K29.70 Gastritis, unspecified, without bleeding; E46 Unspecified protein-calorie malnutrition; K25.9 Gastric ulcer, unspecified as acute or chronic, without hemorrhage or perforation; I10 Essential (primary) hypertension; E86.0 Dehydration; Z79.899 Other long term (current) drug therapy; F32.A Depression, unspecified
CPT/HCPCS: 36415; 71046; 76705; 80048; 80053; 80076; 81001; 83605; 83690; 83735; 84100; 85025; 87086; 87088; 93005; 96365; 96366; 96368; 96372; 96375; 96376; 97802; 99221; 99283; A4216; G0378; J0744; J2405

== ENCOUNTER 2024-09-11 09:24 | Emergency (ER) | payer MEDICAID, SELFPAY ==
[2024-09-11 09:25] VITALS: BP 146/109; PULSE 128; RESP 20; TEMP 37; O2SAT 100; BMI 30.6
[2024-09-11 10:15] LABS: Absolute Lymphocyte Count 0.79 X10^3/uL (0.83-4.51); Absolute Neutrophil Count 5.7 X10^3/uL (2.0-7.7); Basophil# 0.03 X10^3/uL; Basophil% 0.4 % (0-1); Eosinophil# 0.07 X10^3/uL; Hematocrit 38.2 % (37-47); Hemoglobin 12.3 g/dL (12.0-15.0); Lymphocyte # 0.79 X10^3/ul (0.83-4.51); Mean Corp Hgb Conc 32.2 g/dL (32-36); Mean Corpuscular Volume 80.8 fL (81-99); Mean Platelet Vol. 9.5 fl (6.2-12.0); Monocyte# 0.54 X10^3/uL; Monocyte% 7.5 % (0-10); NRBC Flagged by Analyzer 0 % (0-5); Neutrophil # 5.73 X10^3/uL (2.7-7.7); Neutrophil % 79.7 % (47-70); Platelet Count 277 K/mm3 (150-450); RBC Distribution Width CV 15.8 % (11.6-14.6); RBC Distribution Width SD 45.9 fl (35.1-43.9); Red Blood Count 4.73 M/mm3 (4.2-5.4); White Blood Count 7.2 K/mm3 (4.4-11.0)
[2024-09-11 10:24] LABS: Internal QC Validated? YES +Cl - CLEAR BKGD; Pregnancy, Serum, hCG Quali. NEGATIVE Negative
[2024-09-11 10:31] LABS: ALB/GLOB Ratio 0.9 RATIO (0.9-2.4); AST(SGOT) 29 U/L (15-37); Alanine Aminotransfer ALT/SGPT 56 U/L (13-56); Albumin, Serum 4.1 g/dL (3.2-5.0); Alkaline Phosphatase 69 U/L (45-117); Anion Gap 15 (5-15); BUN 2 mg/dL (7-18); BUN/Creat Ratio 3.1 RATIO (10-20); Calcium,Total 9.5 mg/dL (8.5-10.1); Chloride 99 mmol/L (98-107); Creatinine, Serum 0.64 mg/dL (0.55-1.02); EST Glomerular Filtration Rate 121 mL/min (>60); Est Glom Filt Rate - Afr Amer 146 mL/min (>60); Estimated Creatinine Clearance 160.23 ml/min; Globulin 4.4 g/dL (2.2-4.2); Glucose 98 mg/dL (74-106); Potassium 3.5 mmol/L (3.5-5.1); Protein, Total 8.5 g/dL (6.4-8.2); Sodium Level 134 mmol/L (136-145)
--- NOTE | 2024-09-11 11:04 | RAD_ITS ---
EXAM: XR ABDOMEN, 2 VIEWS CLINICAL INDICATION: left sided abd pain, hx of gastroparesis TECHNIQUE: Frontal view of the abdomen/pelvis with upright view of the abdomen. COMPARISON: CT abdomen and pelvis, 07/08/2021 FINDINGS: LOWER THORAX: No acute pathology. INTRAPERITONEAL SPACE: No free air. GASTROINTESTINAL TRACT: No significant abnormality. No significant gastric or bowel distention. No bowel obstruction. ORGANS: Normal as visualized. No organomegaly. No abnormal calcifications. BONES/JOINTS: Scoliotic curvature of the spine. SOFT TISSUES: Surgical clips in the right upper quadrant. RAD/Abd Inc Decub and/or Erect IMPRESSION: No significant gastric or bowel distention. No bowel obstruction. Electronically Signed: John Renee DO at 12:08 EST ,
[2024-09-11] MEDS: 0.9% Normal Saline (1000mL) 1,000 ML 999 ML IV (11:24)
[2024-09-11] MEDS: Metoclopramide 10 MG/2 ML Vial 5 MG IV (11:24)
[2024-09-11 11:25] VITALS: BP 129/78; PULSE 98; RESP 14; O2SAT 98
[2024-09-11] MEDS: Dicyclomine 10 MG Capsule 20 MG PO (11:25)
--- NOTE | 2024-09-11 11:25 | ED.RN ---
WHILE STARTING THE IV THIS NURSE ASKED PT. ABOUT MULTIPLE BRUISE TOMLINSON. FROM PREVIOUS BLOOD DRAWS. SIG. OTHER STATES THAT WAS FROM A LONG TIME AGO, SHE JUST HEALS REALLY SLOW.
--- NOTE | 2024-09-11 11:51 | EDS_ITS ---
HPI HPI - GI History of Present Illness Chief Complaint: Abd Pain Informant: patient Narrative Narrative: Patient is a 24-year-old female with history of send vomiting syndrome and possible gastric paresis presenting with worsening nausea, vomiting and left- sided abdominal pain. She denies any known history of inflammatory bowel disease such as ulcerative colitis or Crohn's disease. She states she has been having issues for 2 months but over the past week her symptoms have been worsening. She states she is been vomiting and she cannot keep anything down now. She is having pressure and she describes as gas pain on the left side of her abdomen. She states this radiates down into her pelvis/back. She states her mother called the nurse practitioner for GI (Dr. Gunn) and she was told to come in. She does not know they said anything else. She has some slight blood streaks associated with her vomiting. Denies any diarrhea and states her bowel moods affected been regular. Denies any fevers. Is not concern for as she had a prior hysterectomy. Has not been able to keep her Reglan and Carafate down or her gabapentin. Has been abstaining from any THC products. Denies any abnormal vaginal bleeding or discharge. [facility] Medical History Intractable nausea and vomiting Gastroparesis Cyclic vomiting syndrome History of alcohol abuse Ureteral stricture, left Retained ureteral stent Hypertension Depression Ureterolithiasis Ureter injury Non-smoker Endometrial cancer PCOS (polycystic ovarian syndrome) Home Medications ?Medication ?Instructions ?Recorded ?Last Taken ?Type acetaminophen 500 mg capsule 1,000 mg (2 x 500 mg) PO Q8H PRN 12/26/22 Unknown Rx PRN pain #60 caps amitriptyline 10 mg tablet 10 mg PO QHS #30 TABLETS 04/28/24 Unknown Rx pantoprazole 40 mg tablet,delayed 40 mg PO BID #60 TABLETS 04/28/24 Unknown Rx release gabapentin 100 mg capsule 200 mg (2 x 100 mg) PO TID #180 05/24/24 Unknown Rx caps sucralfate 100 mg/mL oral 10 ml PO QAC #414 mL 07/21/24 Unknown Rx suspension alprazolam 0.5 mg tablet 0.5 mg PO TID PRN abdominal pain 07/22/24 Unknown Rx #90 tabs hyoscyamine sulfate 0.125 mg 0.125 mg PO TID PRN dyspepsia #90 07/22/24 Unknown Rx disintegrating tablet tabs ondansetron 4 mg disintegrating 4 mg PO Q6H PRN nausea and 07/22/24 Unknown Rx tablet vomiting #90 tabs scopolamine base 1 mg over 3 days 1 patch transdermal Q72H #4 ea 07/22/24 U nknown Rx transdermal patch dicyclomine 20 mg tablet 20 mg PO 4X/DAY PRN abdominal pain 07/23/24 Unknown History metoclopramide HCl 5 mg tablet 5 mg PO 4X/DAY PRN nausea/vomiting 07/23/24 Unk nown History Allergy/AdvReac Type Severity Reaction Status Date / Time ceftriaxone (From Rocephin) Allergy Hives Verified 09/11/24 09:25 promethazine (From Phenergan) Allergy Vomiting Verified 09/11/24 09:25 Ringer's solution,lactated Allergy Hives Verified 09/11/24 09:25 Family History Father No problems noted. Mother Anxiety and depression GERD (gastroesophageal reflux disease) Surgical History History of renal stent History of hysterectomy for cancer Social History household members: family Smoking Status: Never smoker alcohol intake: former substance use type: marijuana and other details: No marijuana use in the last month [facility] ED Constitutional Constitutional ED: Denies chills or fever(s) ENT ENT ED: Denies sore throat Respiratory/Chest Respiratory/Chest: Denies cough or dyspnea Gastrointestinal Gastrointestinal: Reports abdominal pain, nausea and vomiting; Denies constipation or diarrhea Musculoskeletal Musculoskeletal: Denies arthralgias or myalgias Integumentary Denies rash EXAM Physical Exam Const Vital Signs: 09/11/24 09:25 09/11/24 11:25 09/11/24 13:00 Temperature 98.6 F 98.6 F Temperature Source Oral Temporal Pulse Rate 128 H 98 78 Respiratory Rate 20 H 14 16 Blood Pressure 146/109 H 129/78 H 136/78 H Blood Pressure Mean 121 95 97 Pulse Ox 100 98 98 Oxygen Delivery Method Room Air Room Air Room Air 09/11/24 15:00 Temperature Temperature Source Pulse Rate 88 Respiratory Rate 14 Blood Pressure 140/76 H Blood Pressure Mean 97 Pulse Ox 98 Oxygen Delivery Method Room Air Positive well nourished and well developed Constitutional Narrative: Patient laying in bed bent over at the waist. General Appearance ED: well developed and NAD; Negative for pallor HEENT Reports moist mucous membranes normocephalic and atraumatic Neck supple Resp normal respiratory effort and clear to auscultation bilaterally Cardio regular rate and regular rhythm GI Auscultation: hypoactive bowel sounds Palpation: soft and tender LLQ; Negative for guarding or rigid Back/Spine no CVA tenderness Neuro Sensorium / Orientation: alert Motor Exam: general weakness Psych Psych Narrative: flat affect Skin no wounds General Skin Exam: Negative for jaundice or pallor MDM MDM MDM Narrative Medical decision making narrative: Patient evaluated for ongoing LLQ abd pain and nausea/vomiting. Patient is tachycardic upon arrival. Concern for dehydration, acute on chronic pain, urinary tract infection and electrolyte abnormality. Patient is given IV Reglan, fluids and Bentyl as well as Toradol. Chart review on [facility] shows that patient was seen on 09/09 at [facility] emergency room for the same pain. The day before that patient was at [facility] emergency room. If she gave the same story. She had a CT of her abdomen and pelvis which showed no acute process. She had an ultrasound of the pelvis with no acute process. Patient did receive IV Dilaudid at both of those visits. I spoke with the patient's GI doctor who states that patient just had an extensive workup through [facility] (was initially at [facility] But transferred up to [facility]) where she left AGAINST MEDICAL ADVICE. Patient was admitted admitted at [facility] July 29 through for 2 weeks she was transferred to [facility] On 08/19 due to no improvement of symptoms. There she had a Corpak placed. On 08/19 she had a celiac plexus blocks with IR. She had multidisciplinary rounds at [facility] Main with psychiatry, psychology and medicine. She was given scheduled IV Reglan. Patient was refusing to eat while there. She had multiple witnessed episodes of sticking her fingers down her mouth and forcing herself to throw up. It was felt that ultimately this was likely psychologic. I do also question if there is some drug-seeking behavior. Imaging is not obtained as patient has had CT within the last few days and this is most of her much chronic pain. She is not have acute fever or leukocytosis or other acute abnormalities. Urinalysis shows 150 ketones and patient is given IV fluids. She is given IV Haldol for further symptom control. She is able to tolerate p.o. with water/ice chips in the ER. I spoke with Dr. Gunn, who is aware of her recent extended hospitalization and feels that this is likely psychiatric this time. He states he be happy to speak with her in the office with her mother for further discussion and to encourage further psychiatric treatment. Will be discharged home with outpatient GI follow-up. Lab Data Attestation: I reviewed the patient's lab results. Labs: Laboratory Results - last 24 hr 09/11/24 09/11/24 10:08 12:58 WBC 7.2 RBC 4.73 Hgb 12.3 Hct 38.2 MCV 80.8 L MCH 26.0 L MCHC 32.2 RDW Std Deviation 45.9 H RDW Coeff of Roz 15.8 H Plt Count 277 MPV 9.5 Immature Gran % (Auto) 0.400 Neut % (Auto) 79.7 H Lymph % (Auto) 11.0 L [place] % (Auto) 7.5 Eos % (Auto) 1.0 Baso % (Auto) 0.4 Absolute Neuts (auto) 5.7 Absolute Lymphs (auto) 0.79 L Nucleated RBC % 0 Sodium 134 L Potassium 3.5 Chloride 99 Carbon Dioxide 20.0 L Anion Gap 15 BUN 2 L Creatinine 0.64 Estim Creat Clear Calc 160.23 Est GFR (MDRD) Af Amer 146 Est GFR (MDRD) Non-Af 121 BUN/Creatinine Ratio 3.1 L Glucose 98 Calcium 9.5 Magnesium 2.0 Total Bilirubin 0.60 AST 29 ALT 56 Alkaline Phosphatase 69 Total Protein 8.5 H Albumin 4.1 Globulin 4.4 H Albumin/Globulin Ratio 0.9 Serum , Qual NEGATIVE Urine Color Yellow Urine Clarity Sl. Cloudy Urine pH 6.0 Ur Specific [place] 1.025 Urine Protein 30 H Urine Glucose (UA) Normal Urine Ketones 150 A* Urine Occult Blood Negative Urine Nitrite Negative Urine Bilirubin Negative Urine Urobilinogen Normal Ur Leukocyte Esterase Negative Urine RBC 0 SEEN Urine WBC 0 SEEN Ur Squamous Epith Cells 0-5 SEEN Urine Bacteria RARE Urine Mucus 0 SEEN Radiography Diagnostic Testing: Clinical Impression(s) from Imaging Studies Abdomen X-Ray 09/11/24 11:04 IMPRESSION: No significant gastric or bowel distention. No bowel obstruction. Electronically Signed: John Renee DO at 12:08 EST , Management Discussion w/another healthcare provider: English Professor Discharge Plan Triage Chief Complaint: Abd Pain ED Provider: Patti Santos Dx/Rx/DC Orders Clinical Impression: Gastroparesis, Abdominal pain, chronic, left lower quadrant, Nausea, Dehydration Instructions: ED Chronic Pain Prescriptions: No Action ondansetron 4 mg tablet,disintegrating 4 mg PO Q6H PRN (Reason: nausea and vomiting) Qty: 90 2RF hyoscyamine sulfate 0.125 mg tablet,disintegrating 0.125 mg PO TID PRN (Reason: dyspepsia) Qty: 90 0RF alprazolam 0.5 mg tablet 0.5 mg PO TID PRN (Reason: abdominal pain) Qty: 90 0RF scopolamine base 1 mg over 3 days patch 3 day 1 patch transdermal Q72H Qty: 4 0RF acetaminophen 500 mg capsule 1,000 mg PO Q8H PRN PRN (Reason: pain) Qty: 60 0RF metoclopramide HCl 5 mg tablet 5 mg PO 4X/DAY PRN (Reason: nausea/vomiting) dicyclomine 20 mg tablet 20 mg PO 4X/DAY PRN (Reason: abdominal pain) amitriptyline 10 mg tablet 10 mg PO QHS Qty: 30 5RF pantoprazole 40 mg tablet,delayed release (DR/EC) 40 mg PO BID Qty: 60 5RF gabapentin 100 mg capsule 200 mg PO TID Qty: 180 2RF sucralfate 100 mg/mL suspension 10 ml PO QAC Qty: 414 0RF Primary Care Provider: Care Physician,No Primary Referrals: Francisco Gunn DO [Med Staff - Active Staff] - As soon as possible Care Physician,No Primary [Primary Care Provider] - Activity Restrictions/Additional Instructions: You did not see any acute abnormalities in her lab work today and is explain y our pain. You have had extensive workup for this pain including at the [facility] just recently. Please follow-up with GI in the next few days with Dr. Gunn. Is very important that you take your prescribed medication. Please also continue to follow-up with psychiatry. Print Language: Spanish Disposition Disposition: Home, Self Care
[2024-09-11] MEDS: Ketorolac 15 MG/ML Vial IV (12:07)
[2024-09-11 13:00] VITALS: BP 136/78; PULSE 78; RESP 16; TEMP 37; O2SAT 98
[2024-09-11 13:03] LABS: Mucous, Urine 0 SEEN /hpf (<or=2+); Red Blood Cells-Urine 0 SEEN /hpf (0-5); White Blood Cells 0 SEEN /hpf (0-5)
[2024-09-11 13:14] LABS: Color, Urine Yellow (Yellow); Glucose, Dipstick Normal (Normal); Leukocyte Esterase-Dipstick Negative /ul (Negative); Nitrite-Dipstick Negative (Negative); Occult Blood-Urine Negative /ul (Negative); Protein-Dipstick 30 mg/dl (Negative); Specific Gravity, Urine 1.025 (1.002-1.030); Urine Bilirubin Dipstick Negative (Negative); Urine Clarity Sl. Cloudy (Clear); Urine Urobilinogen Normal (Normal)
[2024-09-11 13:20] LABS: Ketone-Dipstick 150 mg/dl (Negative)
[2024-09-11 13:22] LABS: Squamous Epithelial Cells - UA 0-5 SEEN /hpf (5-10)
[2024-09-11 13:23] LABS: Bacteria RARE /hpf (None Seen)
[2024-09-11] MEDS: Haloperidol Lactate 5 MG/ML Vial 2 MG IV (14:52)
[2024-09-11 15:00] VITALS: BP 140/76; PULSE 88; RESP 14; O2SAT 98
--- NOTE | 2024-09-11 16:36 | ED.RN ---
DR BAILEY CAME AND TALKED TO THIS NURSE REGARDING THE DISCHARGE OF THIS PT. SHE REQUESTED THIS PT BE SENT TO FOR A CARE PLAN TO BE ESTABLISHED. ALSO WENT OVER THE MULTIPLE FACILITIES THE PT HAS BEEN TO PRIOR TO HER VISIT TO THIS ER. PT WAS NOT FORTHCOMING ABOUT THESE VISITS IN THE MULTIPLE SITUATIONS DURING HER VISIT HERE AND BEING ASKED ABOUT HER MULTIPLE FRESH PUNCTURE WOUNDS ON HER ARMS. THIS NURSE WENT IN TO TALK TO PT AND HER S.O. HER DISCHARGE INSTRUCTIONS AND DISCUSS THESE THINGS WITH HER. THIS NURSE SAT DOWN AND STARTED DISCUSSING THE DISCHARGE AND PLAN CONCERNS FOR HER VISITS TO MULTIPLE FACILITIES. WHEN THE CONVERSATION STARTED THE S.O. WAS MESSING WITH HIS PHONE AN IT APPEARED THAT HE WAS RECORDING THE CONVERSATION. WHEN ASKED WHAT HE WAS DOING HE CLAIMED THAT HE WAS TEXTING HER MOTHER FOR A RIDE. THIS NURSE CONTINUED TO EXPLAINED TO THE PT THAT THE DIFFERENT FACILITIES CAN SEE WHEN AND WHERE SHE HAS BEEN SO HER CURRENT VISITS OVER THE LAST FEW MONTHS IN CONCERNING. SHE WAS ALSO NOTIFIED THAT SHE IS GOING TO HAVE A CARE PLAN AT THIS ER AND WHAT THAT MEANS. IT WAS EXPLAINED THE DAMAGE SHE IS DOING BY COMING AND HAVING MULTIPLE IV'S STARTED AND THE PROBLEMS SHE CAN HAVE IN THE FUTURE BECAUSE OF THIS WELL. IT WAS DISCUSSED WHO SHE NEEDS TO F/U WITH AND HOW IMPORTANT THAT SHE DOES F/U WITH DR COMBS. SHE VERBALIZED UNDERSTANDING AND S.O. STATED HE WOULD CALL WHEN HE GETS OFF WORK TOMORROW. THIS NURSE THEN ASKED IF THEY HAD ANY OTHER QUESTIONS. THEY BOTH DENIED. THE PTS IV WAS DC'D. THE S.O. THEN TURNED OFF THE PHONE AND PUT IT IN HIS POCKET. WHEN HE WAS ASKED IF HE WAS RECORDING THE CONVERSATION THE BOTH QUICKLY DENIED IT. DR BAILEY AND LYNN ARE AWARE OF THIS WELL.
[2024-09-11 16:52] VITALS: BP 135/74; PULSE 68; RESP 15; TEMP 36.2; O2SAT 94
== END 2024-09-11 16:53 | disposition home or self-care (01) ==
PROVIDERS: Emergency Provider Emergency Medicine; Visit Provider Emergency Medicine
DX: R10.32 Left lower quadrant pain (principal); E86.0 Dehydration; Z90.710 Acquired absence of both cervix and uterus; I10 Essential (primary) hypertension; K31.84 Gastroparesis; Z85.89 Personal history of malignant neoplasm of other organs and systems; F32.A Depression, unspecified; Z79.899 Other long term (current) drug therapy
CPT/HCPCS: 74019; 80053; 81001; 83735; 84703; 85025; 96361; 96374; 96375; 99283; A4216

== ENCOUNTER 2024-09-13 23:53 | Emergency (ER) | payer MEDICAID, SELFPAY ==
[2024-09-13 23:53] VITALS: BP 154/105; PULSE 123; RESP 25; TEMP 36.2; O2SAT 98; BMI 30.6
--- NOTE | 2024-09-14 00:22 | CT_ITS ---
EXAM: CT ABDOMEN AND PELVIS WITH INTRAVENOUS CONTRAST CLINICAL INDICATION: abd pain TECHNIQUE: Helically acquired images were obtained of the abdomen and pelvis with intravenous contrast. This CT exam was performed using one or more of the following dose reduction techniques: automated exposure control, adjustment of the mA and/or kV according to patient size, and/or use of iterative reconstruction technique. CONTRAST: IV 100mL Isovue-300 RADIATION DOSE: CTDIvol = 15.64 mGy, DLP = 1168.92 mGy-cm COMPARISON: CT abdomen pelvis 09/07/2020 FINDINGS: LOWER THORAX: Unremarkable. Lung bases are clear. No cardiomegaly. No significant pericardial effusion. ABDOMEN: LIVER: Unremarkable. Homogeneous. No focal mass. GALLBLADDER AND BILE DUCTS: Cholecystectomy. No intra- or extrahepatic biliary ductal dilation. PANCREAS: Unremarkable. No focal cystic or solid mass. SPLEEN: Unremarkable. Normal size without focal cystic or solid mass. ADRENALS: Unremarkable. No nodules. KIDNEYS AND URETERS: No ureteral stone or renal obstruction. Normal renal size and position. STOMACH AND BOWEL: Unremarkable. No stomach or bowel distention. No focal inflammatory change. PELVIS: APPENDIX: The appendix is normal. BLADDER: Unremarkable. REPRODUCTIVE: Hysterectomy. ABDOMEN and PELVIS: INTRAPERITONEAL SPACE: Unremarkable. No ascites or other fluid collection. No free air. BONES/JOINTS: Unremarkable. No suspicious lytic or blastic abnormality. SOFT TISSUES: Unremarkable. No discrete abdominal or pelvic wall hernia. VASCULATURE: Unremarkable. Abdominal aorta is non-dilated. LYMPH NODES: Unremarkable. No enlarged lymph nodes. CT/Abdomen/Pelvis W IV Cont ONLY IMPRESSION: No acute findings in the abdomen or pelvis. Electronically Signed: Shahid Zhang MD at 2:37 EST ,
--- NOTE | 2024-09-14 00:36 | EX.ED.DYSGE1 ---
HPI History of Present Illness Chief Complaint: Abd Pain Narrative Narrative: Patient is a 24-year-old female past medical history of gastroparesis, hypertension, depression, PCOS, endometrial cancer status post hysterectomy who presented to the emergency department with a chief complaint of abdominal pain. Patient states that her abdominal pain has been going on for approximately 2 months. She states that she follows with Dr. Gunn and was seen here recently. States that she went to [facility] and [facility] recently as well as she states that she had workups there and was ultimately sent home. She was advised if things worsen to go to a emergency department. Patient states that today she has had persistent vomiting and unable to keep anything down with increasing pain therefore she came here for further evaluation management. Patient states that she has never had a colonoscopy. [facility] Medical History Intractable nausea and vomiting Gastroparesis Cyclic vomiting syndrome History of alcohol abuse Ureteral stricture, left Retained ureteral stent Hypertension Depression Ureterolithiasis Ureter injury Non-smoker Endometrial cancer PCOS (polycystic ovarian syndrome) Home Medications ?Medication ?Instructions ?Recorded ?Last Taken ?Type acetaminophen 500 mg capsule 1,000 mg (2 x 500 mg) PO Q8H PRN 12/26/22 Unknown Rx PRN pain #60 caps amitriptyline 10 mg tablet 10 mg PO QHS #30 TABLETS 04/28/24 Unknown Rx pantoprazole 40 mg tablet,delayed 40 mg PO BID #60 TABLETS 04/28/24 Unknown Rx release gabapentin 100 mg capsule 200 mg (2 x 100 mg) PO TID #180 05/24/24 Unknown Rx caps sucralfate 100 mg/mL oral 10 ml PO QAC #414 mL 07/21/24 Unknown Rx suspension alprazolam 0.5 mg tablet 0.5 mg PO TID PRN abdominal pain 07/22/24 Unknown Rx #90 tabs hyoscyamine sulfate 0.125 mg 0.125 mg PO TID PRN dyspepsia #90 07/22/24 Unknown Rx disintegrating tablet tabs ondansetron 4 mg disintegrating 4 mg PO Q6H PRN nausea and 07/22/24 Unknown Rx tablet vomiting #90 tabs scopolamine base 1 mg over 3 days 1 patch transdermal Q72H #4 ea 07/22/24 Unknown Rx transdermal patch dicyclomine 20 mg tablet 20 mg PO 4X/DAY PRN abdominal pain 07/23/24 Unknown History metoclopramide HCl 5 mg tablet 5 mg PO 4X/DAY PRN nausea/vomiting 07/23/24 Unknown History hyoscyamine sulfate 0.125 mg 0.125 mg PO Q6H PRN dyspepsia #30 09/14/24 Unknown Rx tablet (Levsin) tabs metoclopramide HCl 10 mg tablet 10 mg PO Q6H PRN nausea and 09/14/24 Unknown Rx vomiting #20 tabs potassium chloride 20 mEq oral 20 meq PO BID 5 days #30 ea 09/14/24 Unknown Rx packet Allergy/AdvReac Type Severity Reaction Status Date / Time ceftriaxone (From Rocephin) Allergy Hives Verified 09/13/24 23:53 promethazine (From Phenergan) Allergy Vomiting Verified 09/13/24 23:53 Ringer's solution,lactated Allergy Hives Verified 09/13/24 23:53 Family History Father No problems noted. Mother Anxiety and depression GERD (gastroesophageal reflux disease) Surgical History History of renal stent History of hysterectomy for cancer Social History household members: family Smoking Status: Never smoker alcohol intake: former substance use type: marijuana and other details: No marijuana use in the last month ROS ROS ED ROS Narrative Constitutional: Denies any fevers, chills, headaches, lightness, dizziness Cardiovascular: Denies chest pain or palpitations Respiratory: Denies coughing wheezing shortness of breath Abdomen: Complains of abdominal pain nausea vomiting as noted above denies diarrhea : Denies any urinary symptoms Neurological: Denies numbness, wheeze, tingling Musculoskeletal: Denies back pain Skin: Denies any rashes or lesions EXAM Physical Exam Narrative Exam Narrative: General: Patient lying in bed rest comfortably did not appear to be in acute distress Head: Atraumatic, normocephalic Eyes: PERRL bilaterally, EOMI bilateral, no conjunctival injection noted Neck: Soft, supple, trachea midline Cardiovascular: Regular rate and rhythm no murmurs gallops rubs noted Respiratory: Clear to auscultation bilaterally no rales rhonchi or wheezes noted Abdomen: Soft, nondistended, diffuse tenderness to palpation no rebound or guarding on exam Extremities: +5/5 strength noted in the bilateral upper and lower extremities, radial pulses +2/4 in the bilateral extremities, no pedal edema on exam Neurological: Patient following commands knew that she was at [facility] years 2023 Skin: Warm, dry, intact no rashes or lesions noted Const Vital Signs: 09/13/24 23:53 09/14/24 00:46 09/14/24 02:00 Temperature 97.2 F L Temperature Source Temporal Pulse Rate 123 H 115 H 71 Respiratory Rate 25 H 19 H 12 Blood Pressure 154/105 H 124/95 H 133/68 H Blood Pressure Mean 121 104 89 Pulse Ox 98 97 93 Oxygen Delivery Method Room Air Room Air Room Air 09/14/24 04:00 Temperature Temperature Source Pulse Rate 109 H Respiratory Rate 16 Blood Pressure 141/98 H Blood Pressure Mean 112 Pulse Ox 99 Oxygen Delivery Method Room Air MDM MDM MDM Narrative Medical decision making narrative: Patient is a 24-year-old female who presented to the emerged part with a chief complaint of abdominal pain nausea vomiting not tolerating oral intake. On the differential diagnose includes but not limited to viral gastroenteritis, PID, diverticulitis, bowel obstruction. Once workup is obtained reviewed she will be reevaluated. Patient be given IV fluids, Reglan, morphine. Patient CBC reviewed showed no evidence leukocytosis white blood count normal at 7.4, hemoglobin was noted be 12.7, platelet count was noted to be 325. Patient sodium was noted to be 135, she was hypokalemic with a potassium of 2.9, creatinine normal at 0.79. Patient's AST and ALT were 19 and 42 respectively. Patient lipase was noted to be 89, urinalysis showed 150 ketones no evidence of infection test negative. Patient CT abdomen pelvis with IV contrast reviewed showed no acute findings. On reevaluation the patient she is still having significant pain she remains tachycardic with a heart rate in the 120s. Patient will be given another dose of pain medication. She will require further IV potassium supplementation as well. Patient will be admitted for intractable abdominal pain nausea vomiting with multiple ER visits. Called and discussed with hospitalist who is requesting that we finish the D5 NS as she had a extensive workup at [facility] and signed out AGAINST MEDICAL ADVICE. Clinic sink was reviewed as well as previous records. Last visit here Dr. Santos spoke with Dr. Gunn who was happy to see the patient in outpatient setting and discuss further about her symptoms likely being psychiatric in nature. Up at [facility] she had multidisciplinary team approach. On reevaluation the patient I offered her transfer back to [facility] to continue her care where she left AGAINST MEDICAL ADVICE and states that she will not go back to the [facility]. She states that she is feeling better and she like to go home at this point time. Patient heart rate has improved here in the emergency department is in the low 100s. Patient will be given prescription for Reglan, Bentyl and potassium. She is encouraged return with worsening symptoms or concerns. She is follow-up with her primary care physician as well all question concerns answered she is discharged home in stable condition. Lab Data Labs: Laboratory Results - last 24 hr 09/14/24 09/14/24 00:30 02:23 WBC 7.4 RBC 4.96 Hgb 12.7 Hct 40.1 MCV 80.8 L MCH 25.6 L MCHC 31.7 L RDW Std Deviation 45.7 H RDW Coeff of Roz 15.8 H Plt Count 325 MPV 9.7 Immature Gran % (Auto) 0.400 Neut % (Auto) 72.2 H Lymph % (Auto) 16.5 L [place] % (Auto) 9.3 Eos % (Auto) 1.1 Baso % (Auto) 0.5 Absolute Neuts (auto) 5.3 Absolute Lymphs (auto) 1.21 Nucleated RBC % 0 Sodium 135 L Potassium 2.9 L Chloride 101 Carbon Dioxide 20.0 L Anion Gap 15 BUN 2 L Creatinine 0.79 Estim Creat Clear Calc 129.84 Est GFR (MDRD) Af Amer 115 Est GFR (MDRD) Non-Af 95 BUN/Creatinine Ratio 2.5 L Glucose 90 Calcium 9.6 Total Bilirubin 0.40 AST 19 ALT 42 Alkaline Phosphatase 64 Total Protein 7.8 Albumin 3.8 Globulin 4.0 Albumin/Globulin Ratio 1.0 Lipase 89 H Urine Color Yellow Urine Clarity Clear Urine pH 6.0 Ur Specific [place] 1.015 Urine Protein 15 H Urine Glucose (UA) Normal Urine Ketones 150 A* Urine Occult Blood Negative Urine Nitrite Negative Urine Bilirubin Negative Urine Urobilinogen Normal Ur Leukocyte Esterase Negative Urine RBC 0 SEEN Urine WBC 0 SEEN Ur Squamous Epith Cells 0-5 SEEN Urine Bacteria 0 SEEN Urine Mucus 0 SEEN Urine Test Negative Radiography Diagnostic Testing: Clinical Impression(s) from Imaging Studies Abdomen/Pelvis CT 09/14/24 00:22 IMPRESSION: No acute findings in the abdomen or pelvis. Electronically Signed: Shahid Zhang MD at 2:37 EST Reading Location ID and State: [facility] / [place] Tel , Service support , Discharge Plan Triage Chief Complaint: Abd Pain ED Provider: Xavier Patterson Dx/Rx/DC Orders Clinical Impression: Hypokalemia, Abdominal pain, chronic, left lower quadrant, Nausea Prescriptions: New potassium chloride 20 mEq packet 20 meq PO BID 5 Days Qty: 30 0RF metoclopramide HCl 10 mg tablet 10 mg PO Q6H PRN (Reason: nausea and vomiting) Qty: 20 0RF hyoscyamine sulfate [Levsin] 0.125 mg tablet 0.125 mg PO Q6H PRN (Reason: dyspepsia) Qty: 30 0RF No Action ondansetron 4 mg tablet,disintegrating 4 mg PO Q6H PRN (Reason: nausea and vomiting) Qty: 90 2RF hyoscyamine sulfate 0.125 mg tablet,disintegrating 0.125 mg PO TID PRN (Reason: dyspepsia) Qty: 90 0RF alprazolam 0.5 mg tablet 0.5 mg PO TID PRN (Reason: abdominal pain) Qty: 90 0RF scopolamine base 1 mg over 3 days patch 3 day 1 patch transdermal Q72H Qty: 4 0RF acetaminophen 500 mg capsule 1,000 mg PO Q8H PRN PRN (Reason: pain) Qty: 60 0RF metoclopramide HCl 5 mg tablet 5 mg PO 4X/DAY PRN (Reason: nausea/vomiting) dicyclomine 20 mg tablet 20 mg PO 4X/DAY PRN (Reason: abdominal pain) amitriptyline 10 mg tablet 10 mg PO QHS Qty: 30 5RF pantoprazole 40 mg tablet,delayed release (DR/EC) 40 mg PO BID Qty: 60 5RF gabapentin 100 mg capsule 200 mg PO TID Qty: 180 2RF sucralfate 100 mg/mL suspension 10 ml PO QAC Qty: 414 0RF Primary Care Provider: Care Physician,No Primary Referrals: Care Physician,No Primary [Primary Care Provider] - Ariela Zaidi [facility], [[facility]] - Activity Restrictions/Additional Instructions: Follow-up with the primary care physician you referred to. Follow-up with Dr. Gunn the outpatient setting. Take prescriptions as prescribed. Return for worsening symptoms or concerns. Your CT scan was normal as well as your blood work. Take the potassium as prescribed as your potassium is low. Print Language: Ukrainian Disposition Disposition: Home, Self Care
[2024-09-14 00:40] LABS: Absolute Lymphocyte Count 1.21 X10^3/uL (0.83-4.51); Absolute Neutrophil Count 5.3 X10^3/uL (2.0-7.7); Basophil# 0.04 X10^3/uL; Basophil% 0.5 % (0-1); Eosinophil# 0.08 X10^3/uL; Eosinophils% 1.1 % (0-5); Hematocrit 40.1 % (37-47); Hemoglobin 12.7 g/dL (12.0-15.0); Lymphocyte # 1.21 X10^3/ul (0.83-4.51); Lymphocyte % 16.5 % (19-41); Mean Corp Hgb Conc 31.7 g/dL (32-36); Mean Corpuscular Hgb 25.6 pg (27.0-32.0); Mean Corpuscular Volume 80.8 fL (81-99); Mean Platelet Vol. 9.7 fl (6.2-12.0); Monocyte# 0.68 X10^3/uL; Monocyte% 9.3 % (0-10); NRBC Flagged by Analyzer 0 % (0-5); Neutrophil # 5.31 X10^3/uL (2.7-7.7); Neutrophil % 72.2 % (47-70); Platelet Count 325 K/mm3 (150-450); RBC Distribution Width CV 15.8 % (11.6-14.6); RBC Distribution Width SD 45.7 fl (35.1-43.9); Red Blood Count 4.96 M/mm3 (4.2-5.4); White Blood Count 7.4 K/mm3 (4.4-11.0)
--- NOTE | 2024-09-14 00:45 | ED.RN ---
IV attempt x2 unsuccessful R AC and L hand. whistle punk notified.
[2024-09-14 00:46] VITALS: BP 124/95; PULSE 115; RESP 19; O2SAT 97
[2024-09-14 00:58] LABS: AST(SGOT) 19 U/L (15-37); Alanine Aminotransfer ALT/SGPT 42 U/L (13-56); Albumin, Serum 3.8 g/dL (3.2-5.0); Alkaline Phosphatase 64 U/L (45-117); Anion Gap 15 (5-15); BUN 2 mg/dL (7-18); BUN/Creat Ratio 2.5 RATIO (10-20); Calcium,Total 9.6 mg/dL (8.5-10.1); Chloride 101 mmol/L (98-107); Creatinine, Serum 0.79 mg/dL (0.55-1.02); EST Glomerular Filtration Rate 95 mL/min (>60); Est Glom Filt Rate - Afr Amer 115 mL/min (>60); Estimated Creatinine Clearance 129.84 ml/min; Glucose 90 mg/dL (74-106); Lipase 89 U/L (13-75); Potassium 2.9 mmol/L (3.5-5.1); Protein, Total 7.8 g/dL (6.4-8.2); Sodium Level 135 mmol/L (136-145)
[2024-09-14] MEDS: 0.9% Normal Saline (1000mL) 1,000 ML 999 ML IV (01:11)
[2024-09-14] MEDS: Metoclopramide 10 MG/2 ML Vial IV (01:11)
[2024-09-14] MEDS: Morphine 4 MG/ML Syringe IV ×2 (01:12→06:08)
[2024-09-14 02:00] VITALS: BP 133/68; PULSE 71; RESP 12; O2SAT 93
[2024-09-14 02:29] LABS: Bacteria 0 SEEN /hpf (None Seen); Color, Urine Yellow (Yellow); Glucose, Dipstick Normal (Normal); Leukocyte Esterase-Dipstick Negative /ul (Negative); Mucous, Urine 0 SEEN /hpf (<or=2+); Nitrite-Dipstick Negative (Negative); Occult Blood-Urine Negative /ul (Negative); Protein-Dipstick 15 mg/dl (Negative); Red Blood Cells-Urine 0 SEEN /hpf (0-5); Specific Gravity, Urine 1.015 (1.002-1.030); Urine Bilirubin Dipstick Negative (Negative); Urine Clarity Clear (Clear); Urine Urobilinogen Normal (Normal); White Blood Cells 0 SEEN /hpf (0-5)
[2024-09-14 02:39] LABS: Internal QC Validated? YES +Cl - CLEAR BKGD; Pregnancy, Urine Negative Negative
[2024-09-14 02:45] LABS: Ketone-Dipstick 150 mg/dl (Negative)
[2024-09-14 02:48] LABS: Squamous Epithelial Cells - UA 0-5 SEEN /hpf (5-10)
[2024-09-14] MEDS: Potassium Chloride 10mEq/100mL 10 MEQ/100 ML IV.SOLN. 100 MEQ IV BOLUS ×2 (02:51→04:26)
[2024-09-14] MEDS: Dextrose 5%/0.9% NaCl 1,000 ML 200 ML IV (03:15)
[2024-09-14 04:00] VITALS: BP 141/98; PULSE 109; RESP 16; O2SAT 99
[2024-09-14 06:00] VITALS: BP 139/96; PULSE 112; RESP 16; O2SAT 100
[2024-09-14 06:37] VITALS: PULSE 99; RESP 15
[2024-09-14 07:17] VITALS: BP 139/96; PULSE 99; RESP 16; TEMP 36.7; O2SAT 99
== END 2024-09-14 07:18 | disposition home or self-care (01) ==
PROVIDERS: Emergency Provider Emergency Medicine; Visit Provider Emergency Medicine
DX: R10.32 Left lower quadrant pain (principal); E87.6 Hypokalemia; Z90.710 Acquired absence of both cervix and uterus; I10 Essential (primary) hypertension; R11.0 Nausea; Z85.89 Personal history of malignant neoplasm of other organs and systems; Z79.899 Other long term (current) drug therapy; F32.A Depression, unspecified
CPT/HCPCS: 74177; 80053; 81001; 81025; 83690; 85025; 87631; 96361; 96365; 96366; 96375; 96376; 99282; Q9967; A4216

== ENCOUNTER 2024-09-17 05:58 | Emergency (ER) | payer MEDICAID, SELFPAY ==
[2024-09-17 06:00] VITALS: BP 150/125; PULSE 111; RESP 18; TEMP 36.6; O2SAT 99; BMI 32.6
--- NOTE | 2024-09-17 06:25 | EX.ED.DYSGE1 ---
HPI <Dr. Jamey Henriquez MD - Last Filed: 09/17/24 17:12> History of Present Illness Chief Complaint: Nausea/Vomiting Detail of Chief Complaint: Nausea and vomiting started at 0300 and left lower quadrant pain Informant: patient Onset/Context/Timing Onset: Today (Today's episode started 0300.) Context: Sudden Onset Timing: Continuous Quality: Pain with nausea and vomiting Location: Left lower quadrant Current Severity: Mild Maximum Severity: Moderate Worsened by: Nothing specific Relieved by: Nothing Associated Symptoms Associated Symptoms: No other symptoms Narrative Narrative: Patient is a 24-year-old female. She has a history of cannabis use. She states she has not had any product containing cannabinoids in 3 months. She presents with nausea and vomiting started 0 300 and left lower quadrant pain. Patient has had multiple visits for this. She had a multidisciplinary team when she was admitted to the [facility]. There belief is that there is a psychiatric component. She denies fever, chills night sweats. She denies history of diabetes. She reports history of gastroparesis. The cause of her gastroparesis is unknown. She does endorse constipation. Patient denies headache, visual, ocular auditory symptoms. Patient denies cardiac or respiratory symptoms. Prior similar symptoms: Yes Recent Illness/Hospitalization: Yes (Patient was seen September 14, 2024. She had a CAT scan at that time. CAT ne) [facility] <Dr. Jamey Henriquez MD - Last Filed: 09/17/24 17:12> [facility] Medical History Intractable nausea and vomiting Gastroparesis Cyclic vomiting syndrome History of alcohol abuse Ureteral stricture, left Retained ureteral stent Hypertension Depression Ureterolithiasis Ureter injury Non-smoker Endometrial cancer PCOS (polycystic ovarian syndrome) Home Medications ?Medication ?Instructions ?Recorded ?Last Taken ?Type amitriptyline 10 mg tablet 10 mg PO QHS #30 TABLETS 04/28/24 Unknown Rx pantoprazole 40 mg tablet,delayed 40 mg PO BID #60 TABLETS 04/28/24 Unknown Rx release gabapentin 100 mg capsule 200 mg (2 x 100 mg) PO TID #180 05/24/24 Unknown Rx caps sucralfate 100 mg/mL oral 10 ml PO QAC #414 mL 07/21/24 Unknown Rx suspension ondansetron 4 mg disintegrating 4 mg PO Q6H PRN nausea and 07/22/24 Unknown Rx tablet vomiting #90 tabs metoclopramide HCl 10 mg tablet 10 mg PO Q6H PRN nausea and 09/14/24 Unknown Rx vomiting #20 tabs Allergy/AdvReac Type Severity Reaction Status Date / Time ceftriaxone (From Rocephin) Allergy Hives Verified 09/17/24 06:25 promethazine (From Phenergan) Allergy Vomiting Verified 09/17/24 06:25 Ringer's solution,lactated Allergy Hives Verified 09/17/24 06:25 Family History Father No problems noted. Mother Anxiety and depression GERD (gastroesophageal reflux disease) Surgical History History of renal stent History of hysterectomy for cancer Social History household members: family Smoking Status: Never smoker alcohol intake: former substance use type: marijuana and other details: No marijuana use in the last month ROS <Dr. Jamey Henriquez MD - Last Filed: 09/17/24 17:12> ROS ED Constitutional Constitutional ED: Denies chills, fever(s), subjective or sweats Eyes Eyes: Denies blurry vision or change in vision ENT ENT ED: Denies ear pain, rhinorrhea or sore throat Cardiovascular Cardiovascular: Denies chest pain or palpitations Respiratory/Chest Respiratory/Chest: Denies cough, dyspnea or dyspnea on exertion Gastrointestinal Gastrointestinal: Reports abdominal pain, constipation, nausea, vomiting and other Details: She denies hematemesis, melena or hematochezia. ; Denies diarrhea or melena Genitourinary Genitourinary ED: Denies dysuria, hematuria or urinary frequency Musculoskeletal Musculoskeletal: Denies arthralgias, back pain or myalgias Integumentary Denies rash Neurologic Neurologic: Denies headache(s) Psychiatric Psychiatric: Reports anxiety and depression; Denies suicidal ideation or suicidal thoughts Endocrine Endocrinology: Denies cold intolerance or heat intolerance Hematologic/Lymphatic Hematologic/Lymphatic: Reports systems reviewed and no addt'l complaints, except as documented EXAM <Dr. Jamey Henriquez MD - Last Filed: 09/17/24 17:12> Physical Exam Const Vital Signs: 09/17/24 06:00 09/17/24 07:58 09/17/24 08:50 Temperature 97.8 F 97.9 F Temperature Source Oral Pulse Rate 111 H 91 91 Respiratory Rate 18 18 18 Blood Pressure 150/125 H 132/99 H 132/99 H Blood Pressure Mean 133 110 110 Pulse Ox 99 99 99 Oxygen Delivery Method Room Air Positive well nourished and well developed Constitutional Narrative: BMI is 32.6. Patient does not appear well. General Appearance ED: well developed and pallor; Negative for cyanotic or diaphoretic HEENT Reports moist mucous membranes HEENT Narrative: Head is atraumatic and normocephalic. Ears are normal. Nares are patent. Posterior pharynx is normal. Eyes PERRL and EOMs intact bilaterally General Eye ED: Negative for pale conjunctiva or scleral icterus Neck no lymphadenopathy, supple and no JVD Resp normal respiratory effort and clear to auscultation bilaterally Cardio regular rhythm, S1 normal heart sound, S2 normal heart sound and no murmurs Rate: tachycardic GI normal to inspection, nondistended, normoactive bowel sounds and non-distended; Negative for non-tender, hepatosplenomegaly or no masses GI Narrative: Patient had pain out of proportion to stimulus. She had pain with me touching her skin and barely depressing her skin. Auscultation: hypoactive bowel sounds Back/Spine no CVA tenderness Extremity normal to inspection Extremity Narrative: Capillary refill is normal. General Extremety ED: Negative for edema or tenderness General Extremity: Negative for edema Neuro oriented x3 and CN's II-XII intact bilaterally Sensorium / Orientation: alert Motor Exam: strength 5/5 throughout Psych mental status grossly normal Skin no rashes or lesions noted, no wounds and skin turgor normal General Skin Exam: pallor; Negative for jaundice <Dr. Josué Reinoso, DO - Last Filed: 09/17/24 08:46> Physical Exam Const Vital Signs: 09/17/24 06:00 09/17/24 07:58 09/17/24 08:50 Temperature 97.8 F 97.9 F Temperature Source Oral Pulse Rate 111 H 91 91 Respiratory Rate 18 18 18 Blood Pressure 150/125 H 132/99 H 132/99 H Blood Pressure Mean 133 110 110 Pulse Ox 99 99 99 Oxygen Delivery Method Room Air MDM <Dr. Jamey Henriquez MD - Last Filed: 09/17/24 17:12> [facility] Narrative Medical decision making narrative: Prior records were reviewed. Patient was seen on the fifth as well as the eighth. Records for visit [facility] were reviewed through [facility]. Will obtain blood work. Unless there is an abnormality there is no indication in my opinion of repeating a CAT scan since it was done 2 days ago. Since patient has history of intractable nausea and vomiting cyclic vomiting syndrome she was treated with the cyclic vomiting order set. She states she has not had any cannabinoid products in 3 months. If this regimen does not work will suggest to the oncoming physician to order a tox screen to determine if patient has been forthcoming with regards to use of cannabinoids unless it was done on the eighth. Patient's case was turned over to the morning physician. Patient history, physical and recent visits as well as information found through [facility] were related to the position. History & Record Review Additional record(s) reviewed:: Prior inpatient record, Prior ED visit and Prior labs <Dr. Josué Reinoso DO - Last Filed: 09/17/24 08:46> [facility] Treatment and Re-Evaluation :: Care of the patient was turned over to nd. Patient is feeling better on reevaluation. Patient states her nausea and vomiting has improved. Patient was instructed to rest in the dark quiet room. Patient was instructed to start with sips of fluids and advance as tolerated. Patient was instructed to follow-up with her primary care physician in 5 to 7 days. Patient understood and was agreeable with the plan. All questions were answered. Discharge Plan Triage Chief Complaint: Nausea/Vomiting ED Provider: Jamey Henriquez Dx/Rx/DC Orders Clinical Impression: Cyclic vomiting syndrome, Abdominal pain, chronic, left lower quadrant Instructions: ED Cyclic Vomiting Syndrome Prescriptions: No Action ondansetron 4 mg tablet,disintegrating 4 mg PO Q6H PRN (Reason: nausea and vomiting) Qty: 90 2RF metoclopramide HCl 10 mg tablet 10 mg PO Q6H PRN (Reason: nausea and vomiting) Qty: 20 0RF amitriptyline 10 mg tablet 10 mg PO QHS Qty: 30 5RF pantoprazole 40 mg tablet,delayed release (DR/EC) 40 mg PO BID Qty: 60 5RF gabapentin 100 mg capsule 200 mg PO TID Qty: 180 2RF sucralfate 100 mg/mL suspension 10 ml PO QAC Qty: 414 0RF Primary Care Provider: Care Physician,No Primary Referrals: Care Physician,No Primary [Primary Care Provider] - Doctor,Your [Non-Staff] - 3-5 Days Print Language: Tajik Disposition Disposition: Home, Self Care Discharge Date/Time: 09/17/24 08:51
[2024-09-17] MEDS: LORazepam 2 MG/ML Syringe 0.5 MG IV (06:41)
[2024-09-17] MEDS: Ondansetron 4 MG/2 ML Vial IV (06:41)
[2024-09-17] MEDS: Famotidine 200 MG/20 ML MDV 20 MG in 0.9% Normal Saline (Pres. free 8 ML 300 MG IV (06:54)
--- NOTE | 2024-09-17 07:08 | ED.RN ---
this rn assumes care from EMY Car
[2024-09-17] MEDS: DiphenhydrAMINE 25 MG, ChlorproMAZINE IM 25 MG in 0.9% Normal Saline (100mL Bag) 100 ML 203 MG IV (07:36)
[2024-09-17 07:58] VITALS: BP 132/99; PULSE 91; RESP 18; O2SAT 99
[2024-09-17 08:50] VITALS: BP 132/99; PULSE 91; RESP 18; TEMP 36.6; O2SAT 99
== END 2024-09-17 08:51 | disposition home or self-care (01) ==
PROVIDERS: Emergency Provider Emergency Medicine; Visit Provider Emergency Medicine
DX: R11.15 Cyclical vomiting syndrome unrelated to migraine (principal); R10.32 Left lower quadrant pain; Z90.710 Acquired absence of both cervix and uterus; I10 Essential (primary) hypertension; F32.A Depression, unspecified; Z79.899 Other long term (current) drug therapy

== ENCOUNTER → 2024-11-30 | Outpatient (CLI) | payer MEDICAID, SELFPAY ==
[2024-11-30 15:54] LABS: Absolute Lymphocyte Count 2.14 X10^3/uL (0.83-4.51); Absolute Neutrophil Count 4.5 X10^3/uL (2.0-7.7); Basophil# 0.05 X10^3/uL; Basophil% 0.7 % (0-1); Eosinophil# 0.25 X10^3/uL; Eosinophils% 3.3 % (0-5); Hematocrit 35.4 % (37-47); Hemoglobin 10.6 g/dL (12.0-15.0); Lymphocyte # 2.14 X10^3/ul (0.83-4.51); Lymphocyte % 28.4 % (19-41); Mean Corp Hgb Conc 29.9 g/dL (32-36); Mean Corpuscular Hgb 24.1 pg (27.0-32.0); Mean Corpuscular Volume 80.5 fL (81-99); Mean Platelet Vol. 9.9 fl (6.2-12.0); Monocyte# 0.52 X10^3/uL; Monocyte% 6.9 % (0-10); NRBC Flagged by Analyzer 0 % (0-5); Neutrophil # 4.54 X10^3/uL (2.7-7.7); Neutrophil % 60.3 % (47-70); Platelet Count 373 K/mm3 (150-450); RBC Distribution Width CV 15.5 % (11.6-14.6); RBC Distribution Width SD 44.8 fl (35.1-43.9); White Blood Count 7.5 K/mm3 (4.4-11.0)
[2024-11-30 18:01] LABS: ALB/GLOB Ratio 1.2 RATIO (0.9-2.4); AST(SGOT) 20 U/L (<=31); Alanine Aminotransfer ALT/SGPT 22 U/L (<=34); Albumin, Serum 4.3 g/dL (3.5-5.0); Alkaline Phosphatase 69 U/L (35-104); Amylase 36 U/L (28-100); Anion Gap 11 (5-15); BUN 13 mg/dL (4-19); BUN/Creat Ratio 20.9 RATIO (10-20); Calcium,Total 9.1 mg/dL (7.6-11.0); Carbon Dioxide 22.9 mmol/L (21.0-32.0); Chloride 105 mmol/L (98-108); Creatinine, Serum 0.64 mg/dL (0.70-1.20); EST Glomerular Filtration Rate 126 (>60); Globulin 3.5 g/dL (2.2-4.2); Glucose 82 mg/dL (70-99); Lipase 32 U/L (13-75); Potassium 4.3 mmol/L (3.3-5.1); Protein, Total 7.8 g/dL (5.9-8.4); Sodium Level 139 mmol/L (133-145); Total Bilirubin 0.17 mg/dL (0.00-1.30)
== END | disposition home or self-care (01) ==
LOC: BIMLAB 14:13
PROVIDERS: PCP Internal Medicine; Referring Provider Physician Assistant; Visit Provider Physician Assistant
DX: E87.6 Hypokalemia (principal); Q45.3 Other congenital malformations of pancreas and pancreatic duct; K31.84 Gastroparesis
CPT/HCPCS: 36415; 80053; 82150; 83690; 84443; 85025

== ENCOUNTER 2024-12-14 10:28 | Emergency (ER) | payer MEDICAID, SELFPAY ==
[2024-12-14 10:28] VITALS: BP 154/109; PULSE 123; PULSE 138; RESP 22; TEMP 36.6; O2SAT 98
--- NOTE | 2024-12-14 10:45 | ED.VIS.GI ---
HPI <ISHMAEL Valencia - Last Filed: 12/14/24 17:23> HPI - GI History of Present Illness Chief Complaint: Abd Pain Narrative Narrative: Patient presenting today with left lower quadrant abdominal pain she has had constantly over the past 2 weeks. She has a history of chronic abdominal pain that is intermittent. She has been worked up by GI and has had several ER visits and hospital stays with extensive workups performed. She did previously follow with Dr. Gunn for this. She has a history of gastroparesis, HTN, depression, PCOS, and endometrial cancer s/p partial hysterectomy. She reports occasional marijuana use. She denies fevers, chills, vomiting, diarrhea, urinary symptoms, and stool changes. She also has a history of a cholecystectomy. [facility] <ISHMAEL Valencia - Last Filed: 12/14/24 17:23> [facility] Medical History Cholecystectomy planned Intractable nausea and vomiting Gastroparesis Cyclic vomiting syndrome History of alcohol abuse Ureteral stricture, left Retained ureteral stent Hypertension Depression Ureterolithiasis Ureter injury Non-smoker Endometrial cancer PCOS (polycystic ovarian syndrome) Home Medications ?Medication ?Instructions ?Recorded ?Last Taken ?Type dicyclomine 10 mg capsule 10 mg PO TID #90 caps 11/30/24 11/30/24 Rx gabapentin 600 mg tablet 600 mg PO TID #90 tabs 11/30/24 11/30/24 Rx methocarbamol 500 mg tablet 500 mg PO TID #90 tabs 11/30/24 11/30/24 Rx mirtazapine 15 mg disintegrating 15 mg PO QHS #30 tabs 11/30/24 11/30/24 Rx tablet ondansetron 4 mg disintegrating 4 mg PO Q6H PRN nausea and 11/30/24 11/30/24 Rx tablet vomiting #90 tabs pantoprazole 40 mg tablet,delayed 40 mg PO BID #60 TABLETS 11/30/24 11/30/24 Rx release trazodone 50 mg tablet 50 mg PO QHS PRN sleep #30 tabs 11/30/24 11/30/24 Rx neomycin-bacitracn Zn-polymyx 3.5 1 applic topical DAILY infected 12/14/24 12/13/24 History mg-400 unit-5,000 unit/gram top hair oint (Neosporin ([id number])) Allergy/AdvReac Type Severity Reaction Status Date / Time ceftriaxone (From Rocephin) Allergy Hives Verified 12/14/24 10:28 promethazine (From Phenergan) Allergy Vomiting Verified 12/14/24 10:28 Ringer's solution,lactated Allergy Hives Verified 12/14/24 10:28 Family History Father No problems noted. Mother Anxiety and depression GERD (gastroesophageal reflux disease) Surgical History History of renal stent History of hysterectomy for cancer Social History household members: family Smoking Status: Never smoker alcohol intake: former substance use type: marijuana and other details: No marijuana use in the last month ROS <ISHMAEL Valencia - Last Filed: 12/14/24 17:23> ROS ED Constitutional Constitutional ED: Denies chills or fever(s) Cardiovascular Cardiovascular: Denies chest pain Respiratory/Chest Respiratory/Chest: Denies dyspnea Gastrointestinal Gastrointestinal: Reports abdominal pain and nausea; Denies constipation, diarrhea, melena or vomiting Genitourinary Genitourinary ED: Denies dysuria, hematuria or urinary frequency Musculoskeletal Musculoskeletal: Denies arthralgias or myalgias Integumentary Denies rash Neurologic Neurologic: Denies weakness EXAM <ISHMAEL Valencia - Last Filed: 12/14/24 17:23> Physical Exam Const Vital Signs: 12/14/24 10:28 12/14/24 10:28 12/14/24 12:28 Temperature 98 F Temperature Source Temporal Pulse Rate 123 H 138 H 92 Respiratory Rate 22 H 22 H Blood Pressure 154/109 H Blood Pressure Mean 124 Pulse Ox 98 96 Oxygen Delivery Method Room Air Room Air 12/14/24 14:00 12/14/24 16:00 12/14/24 17:02 Temperature 98.4 F Temperature Source Pulse Rate 104 H 87 79 Respiratory Rate 16 16 16 Blood Pressure 137/99 H 137/93 H 135/78 H Blood Pressure Mean 111 107 97 Pulse Ox 97 100 98 Oxygen Delivery Method Room Air Room Air Positive well nourished, well developed and no apparent distress General Appearance ED: well developed HEENT Reports normocephalic and head/scalp atraumatic Mouth ED: Yes moist mucous membranes normal Eyes PERRL and EOMs intact bilaterally Neck full ROM and supple Chest Wall inspection of chest normal Resp normal respiratory effort and clear to auscultation bilaterally Cardio regular rate and regular rhythm GI soft to palpation, non-distended and no masses GI Narrative: Left lower quadrant tenderness to palpation, no rigidity or guarding. Back/Spine normal ROM and normal to inspection Extremity normal to inspection and full ROM Neuro oriented x3, CN's II-XII intact bilaterally, moves all extremities, no focal motor deficits and no sensory deficits noted Sensorium / Orientation: awake and alert Psych mental status grossly normal and thought process normal Skin no rashes or lesions noted and no wounds <Kevin San MD - Last Filed: 12/14/24 15:52> Physical Exam Const Vital Signs: 12/14/24 10:28 12/14/24 10:28 12/14/24 12:28 Temperature 98 F Temperature Source Temporal Pulse Rate 123 H 138 H 92 Respiratory Rate 22 H 22 H Blood Pressure 154/109 H Blood Pressure Mean 124 Pulse Ox 98 96 Oxygen Delivery Method Room Air Room Air 12/14/24 14:00 12/14/24 16:00 12/14/24 17:02 Temperature 98.4 F Temperature Source Pulse Rate 104 H 87 79 Respiratory Rate 16 16 16 Blood Pressure 137/99 H 137/93 H 135/78 H Blood Pressure Mean 111 107 97 Pulse Ox 97 100 98 Oxygen Delivery Method Room Air Room Air [facility] <ISHMAEL Valencia - Last Filed: 12/14/24 17:23> [facility] Narrative Medical decision making narrative: Patient presenting today with left lower quadrant abdominal pain that she has had over the past 2 weeks that is not going away. She called her PCP and they recommended she come in to be evaluated. She is nontoxic-appearing, afebrile, she is slightly tachycardic initially. Patient given IV fluids, morphine, and Zofran. Abdominal labs to be obtained as well as a CT scan of the abdomen pelvis with IV contrast to assess for diverticulitis, bowel obstruction, mass, kidney stone, ovarian cyst, and other abnormality. I did review previous notes, she has had multiple workups in the past for this abdominal pain including GI and has been admitted to other hospital systems for workup. They have suspected her pain might be psychiatric in nature. Labs were obtained, CBC without leukocytosis or significant anemia, CMP obtained to assess for hepatobiliary etiology, kidney dysfunction and electrolyte derangement. Her potassium is slightly low at 2.7. This has been low in the past. Magnesium normal. I did order oral potassium replacement but she declined reporting that it would hurt her stomach and prefers IV potassium. This has been ordered. She was given IV saline, Zofran, and morphine for pain. She still reported feeling uncomfortable and was given additional Bentyl. CT scan of the abdomen and pelvis negative for acute findings. Shows borderline evidence of mild cystitis. UA negative for UTI. On reexamination patient is requesting to leave. She has gotten 1 bag of the IV potassium. I again suggested we give her p.o. potassium and she refuses. She reports that she just got a prescription today for 20 mEq potassium and is supposed to be taking 3 a day for the next 4 days, this was written by her PCP. She reports that she will take this when she gets home and does not want to take it here. Patient discharged home in stable condition. Recommended she follow-up with her PCP over the next 5 to 7 days and continue following with GI. Lab Data Attestation: I reviewed the patient's lab results. Labs: Laboratory Results - last 24 hr 12/14/24 12/14/24 11:32 12:58 WBC 9.6 RBC 4.94 Hgb 12.0 Hct 38.1 MCV 77.1 L MCH 24.3 L MCHC 31.5 L RDW Std Deviation 45.1 H RDW Coeff of Roz 16.4 H Plt Count 356 MPV 9.2 Immature Gran % (Auto) 0.200 Neut % (Auto) 80.6 H Lymph % (Auto) 12.4 L Ada % (Auto) 5.7 Eos % (Auto) 0.7 Baso % (Auto) 0.4 Absolute Neuts (auto) 7.8 H Absolute Lymphs (auto) 1.19 Nucleated RBC % 0 Sodium 136 Potassium 2.7 L* Chloride 95 L Carbon Dioxide 24.2 Anion Gap 17 H BUN 9 Creatinine 0.75 Est GFR (MDRD) Non-Af 114 BUN/Creatinine Ratio 11.4 Glucose 114 H Calcium 9.3 Magnesium 2.1 Total Bilirubin 0.37 AST 20 ALT 17 Alkaline Phosphatase 63 Total Protein 8.2 Albumin 4.5 Globulin 3.6 Albumin/Globulin Ratio 1.3 Lipase 25 Serum , Qual NEGATIVE Urine Color Straw Urine Clarity Clear Urine pH 6.5 Ur Specific [place] 1.010 Urine Protein 30 H Urine Glucose (UA) Normal Urine Ketones 50 H Urine Occult Blood Negative Urine Nitrite Negative Urine Bilirubin Negative Urine Urobilinogen Normal Ur Leukocyte Esterase Negative Urine RBC 0-5 SEEN Urine WBC 0-5 SEEN Ur Squamous Epith Cells 0-5 SEEN Urine Bacteria 0 SEEN Urine Mucus 0 SEEN Radiography Diagnostic Testing: Clinical Impression(s) from Imaging Studies Abdomen/Pelvis CT 12/14/24 11:55 IMPRESSION: 1. Borderline evidence of mild cystitis. Correlate with urinalysis. 2. Additional description as above. Reading Location: [id number] <Kevin San MD - Last Filed: 12/14/24 15:52> [facility] Lab Data Labs: Laboratory Results - last 24 hr 12/14/24 12/14/24 11:32 12:58 WBC 9.6 RBC 4.94 Hgb 12.0 Hct 38.1 MCV 77.1 L MCH 24.3 L MCHC 31.5 L RDW Std Deviation 45.1 H RDW Coeff of Roz 16.4 H Plt Count 356 MPV 9.2 Immature Gran % (Auto) 0.200 Neut % (Auto) 80.6 H Lymph % (Auto) 12.4 L Ada % (Auto) 5.7 Eos % (Auto) 0.7 Baso % (Auto) 0.4 Absolute Neuts (auto) 7.8 H Absolute Lymphs (auto) 1.19 Nucleated RBC % 0 Sodium 136 Potassium 2.7 L* Chloride 95 L Carbon Dioxide 24.2 Anion Gap 17 H BUN 9 Creatinine 0.75 Est GFR (MDRD) Non-Af 114 BUN/Creatinine Ratio 11.4 Glucose 114 H Calcium 9.3 Magnesium 2.1 Total Bilirubin 0.37 AST 20 ALT 17 Alkaline Phosphatase 63 Total Protein 8.2 Albumin 4.5 Globulin 3.6 Albumin/Globulin Ratio 1.3 Lipase 25 Serum , Qual NEGATIVE Urine Color Straw Urine Clarity Clear Urine pH 6.5 Ur Specific [place] 1.010 Urine Protein 30 H Urine Glucose (UA) Normal Urine Ketones 50 H Urine Occult Blood Negative Urine Nitrite Negative Urine Bilirubin Negative Urine Urobilinogen Normal Ur Leukocyte Esterase Negative Urine RBC 0-5 SEEN Urine WBC 0-5 SEEN Ur Squamous Epith Cells 0-5 SEEN Urine Bacteria 0 SEEN Urine Mucus 0 SEEN Radiography Diagnostic Testing: Clinical Impression(s) from Imaging Studies Abdomen/Pelvis CT 12/14/24 11:55 IMPRESSION: 1. Borderline evidence of mild cystitis. Correlate with urinalysis. 2. Additional description as above. Reading Location: [id number] Treatment and Re-Evaluation :: Dr. San: I have personally performed a face to face assessment of the patient and have reviewed the MARTA Note. I performed a substantive portion of the visit including all aspects of the following. My farah findings include: History is chronic abdominal pain, discharged from gastroenterology, had previous workup at [facility] as inpatient. Exam is afebrile. Vital signs noted. Nontoxic-appearing. Cardiovascular examination reveals mild tachycardia. Lungs clear to auscultation bilaterally. Abdomen is soft with minimal tenderness of the suprapubic area without guarding or rebound. Medical Decision Making: Check labs. Check CT. Patient given 1 dose of opiate medication. With negative workup was not felt that she requires additional narcotic pain medication or outpatient narcotic pain medication. She was hypokalemic. Patient declined oral repletion secondary to an upsetting her stomach. Check magnesium. Anticipate discharge. Other additions or changes: [None] Discharge Plan Triage Chief Complaint: Abd Pain ED Midlevel Provider: Xochilt Parker ED Provider: Kevin San Dx/Rx/DC Orders Clinical Impression: Hypokalemia, Abdominal pain Instructions: Abdominal Pain, ED Hypokalemia Prescriptions: No Action dicyclomine 10 mg capsule 10 mg PO TID Qty: 90 0RF gabapentin 600 mg tablet 600 mg PO TID Qty: 90 2RF methocarbamol 500 mg tablet 500 mg PO TID Qty: 90 0RF mirtazapine 15 mg tablet,disintegrating 15 mg PO QHS Qty: 30 2RF ondansetron 4 mg tablet,disintegrating 4 mg PO Q6H PRN (Reason: nausea and vomiting) Qty: 90 0RF pantoprazole 40 mg tablet,delayed release (DR/EC) 40 mg PO BID Qty: 60 2RF trazodone 50 mg tablet 50 mg PO QHS PRN (Reason: sleep) Qty: 30 0RF Neosporin ([id number]) 3.5mg-400 unit- 5,000 unit/gram ointment 1 applic topical DAILY Primary Care Provider: Robina Watson Referrals: Robina Watson MD [Primary Care Provider] - 5-7 Days Activity Restrictions/Additional Instructions: Please take your potassium as directed, take first dose today. Follow-up with your PCP and return for any worsening symptoms. Print Language: Guatemalan Disposition Disposition: Home, Self Care Discharge Date/Time: 12/14/24 17:09
[2024-12-14] MEDS: Morphine 4 MG/ML Syringe IV (11:17)
[2024-12-14] MEDS: Ondansetron 4 MG/2 ML Vial IV (11:18)
[2024-12-14] MEDS: 0.9% Normal Saline (1000mL) 1,000 ML 999 ML IV (11:18)
[2024-12-14 11:43] LABS: Absolute Lymphocyte Count 1.19 X10^3/uL (0.83-4.51); Absolute Neutrophil Count 7.8 X10^3/uL (2.0-7.7); Basophil# 0.04 X10^3/uL; Basophil% 0.4 % (0-1); Eosinophil# 0.07 X10^3/uL; Eosinophils% 0.7 % (0-5); Hematocrit 38.1 % (37-47); Lymphocyte # 1.19 X10^3/ul (0.83-4.51); Lymphocyte % 12.4 % (19-41); Mean Corp Hgb Conc 31.5 g/dL (32-36); Mean Corpuscular Hgb 24.3 pg (27.0-32.0); Mean Corpuscular Volume 77.1 fL (81-99); Mean Platelet Vol. 9.2 fl (6.2-12.0); Monocyte# 0.55 X10^3/uL; Monocyte% 5.7 % (0-10); NRBC Flagged by Analyzer 0 % (0-5); Neutrophil # 7.76 X10^3/uL (2.7-7.7); Neutrophil % 80.6 % (47-70); Platelet Count 356 K/mm3 (150-450); RBC Distribution Width CV 16.4 % (11.6-14.6); RBC Distribution Width SD 45.1 fl (35.1-43.9); Red Blood Count 4.94 M/mm3 (4.2-5.4); White Blood Count 9.6 K/mm3 (4.4-11.0)
[2024-12-14 11:55] LABS: Internal QC Validated? YES +Cl - CLEAR BKGD; Record Kit Lot#, Serum Preg. 929381
--- NOTE | 2024-12-14 11:55 | CT_ITS ---
PROCEDURE: ABDOMEN/PELVIS W IV CONT ONLY 12/14/2024 REASON FOR EXAM: LLQ PAIN TECHNIQUE: Abdomen and pelvis CT with intravenous contrast. Coronal and Sagittal reformats were generated. PATIENT PREPARATION: Per protocol ORAL CONTRAST TYPE: None. CONTRAST: Isovue 370 VOLUME: 99 mL One or more dose reduction techniques were used (e.g., Automated exposure control, adjustment of the mA and/or kV according to patient size, use of iterative reconstruction technique. RADIATION DOSE SUMMARY: CTDlvol: 3.32+ 20.59 mGy DLP: 1062.13 mGycm COMPARISON: None. FINDINGS: Lung bases: Unremarkable. Liver: Surgical clip abuts the inferior RIGHT hepatic lobe. Spleen: Unremarkable. Gallbladder: Cholecystectomy. Pancreas: Unremarkable. Adrenals: Unremarkable. Kidneys: Unremarkable. Bowel: High-density material opacifies the ascending as well as the descending and rectosigmoid colon. Single surgical clip in the RIGHT paracolic gutter abutting the ascending colon.. Normal caliber appendix. Lymph nodes: Unremarkable. Vasculature: Unremarkable. Peritoneum: Unremarkable. Bladder: Borderline mild wall thickening versus underdistention. Reproductive Organs: Hysterectomy. Body Wall: Tiny fat containing umbilical hernia.. Bones: Mild lower thoracic levoscoliosis. CT/Abdomen/Pelvis W IV Cont ONLY IMPRESSION: 1. Borderline evidence of mild cystitis. Correlate with urinalysis. 2. Additional description as above. Reading Location: [id number]
[2024-12-14 11:57] LABS: Pregnancy, Serum, hCG Quali. NEGATIVE Negative
[2024-12-14 12:28] VITALS: PULSE 92; RESP 22; O2SAT 96
[2024-12-14 12:31] LABS: Lipase 25 U/L (13-75)
[2024-12-14 12:36] LABS: ALB/GLOB Ratio 1.3 RATIO (0.9-2.4); AST(SGOT) 20 U/L (<=31); Alanine Aminotransfer ALT/SGPT 17 U/L (<=34); Albumin, Serum 4.5 g/dL (3.5-5.0); Alkaline Phosphatase 63 U/L (35-104); Anion Gap 17 (5-15); BUN 9 mg/dL (4-19); BUN/Creat Ratio 11.4 RATIO (10-20); Calcium,Total 9.3 mg/dL (7.6-11.0); Carbon Dioxide 24.2 mmol/L (21.0-32.0); Chloride 95 mmol/L (98-108); Creatinine, Serum 0.75 mg/dL (0.70-1.20); EST Glomerular Filtration Rate 114 (>60); Globulin 3.6 g/dL (2.2-4.2); Glucose 114 mg/dL (70-99); Protein, Total 8.2 g/dL (5.9-8.4); Sodium Level 136 mmol/L (133-145); Total Bilirubin 0.37 mg/dL (0.00-1.30)
[2024-12-14] MEDS: Dicyclomine 20 MG/2 ML Vial IM (12:38)
[2024-12-14 13:02] LABS: Bacteria 0 SEEN /hpf (None Seen); Mucous, Urine 0 SEEN /hpf (<or=2+)
[2024-12-14 13:09] LABS: Color, Urine Straw (Yellow); Glucose, Dipstick Normal (Normal); Ketone-Dipstick 50 mg/dl (Negative); Leukocyte Esterase-Dipstick Negative /ul (Negative); Nitrite-Dipstick Negative (Negative); Occult Blood-Urine Negative /ul (Negative); Protein-Dipstick 30 mg/dl (Negative); Urine Bilirubin Dipstick Negative (Negative); Urine Clarity Clear (Clear); Urine Urobilinogen Normal (Normal); Urine pH 6.5 (5.0 - 8.0)
[2024-12-14 13:47] LABS: Red Blood Cells-Urine 0-5 SEEN /hpf (0-5); Squamous Epithelial Cells - UA 0-5 SEEN /hpf (5-10); White Blood Cells 0-5 SEEN /hpf (0-5)
[2024-12-14 14:00] VITALS: BP 137/99; PULSE 104; RESP 16; O2SAT 97
[2024-12-14] MEDS: Potassium Chloride 10mEq/100mL 10 MEQ/100 ML IV.SOLN. 100 MEQ IV BOLUS ×2 (15:10→16:16)
--- NOTE | 2024-12-14 15:29 | ED.RN ---
PT REQUESTING MORE PAIN MEDICATION. DR MARQUEZ AWARE. PT NOT TO RECEIVE ANYTHING ELSE. THIS RN IN TO TALK WITH PT AND LET HER KNOW PHYSICIAN DECISION
[2024-12-14 15:50] LABS: Magnesium 2.1 mg/dL (1.5-2.2)
[2024-12-14 15:53] LABS: Potassium 2.7 mmol/L (3.3-5.1)
[2024-12-14 16:00] VITALS: BP 137/93; PULSE 87; RESP 16; O2SAT 100
[2024-12-14 17:02] VITALS: BP 135/78; PULSE 79; RESP 16; TEMP 36.9; O2SAT 98
== END 2024-12-14 17:09 | disposition home or self-care (01) ==
PROVIDERS: Physician Assistant; Emergency Provider Emergency Medicine; PCP Internal Medicine; Visit Provider Emergency Medicine
DX: R10.32 Left lower quadrant pain (principal); E87.6 Hypokalemia; I10 Essential (primary) hypertension; Z90.710 Acquired absence of both cervix and uterus; Z85.89 Personal history of malignant neoplasm of other organs and systems; Z90.49 Acquired absence of other specified parts of digestive tract
CPT/HCPCS: 74177; 80053; 81001; 83690; 83735; 84703; 85025; 96361; 96365; 96366; 96372; 96375; 99282; Q9967; A4216; J2405

== ENCOUNTER 2025-03-22 19:24 | Emergency (ER) | payer MEDICAID, SELFPAY ==
[2025-03-22 19:24] VITALS: BP 142/121; PULSE 144; RESP 19; TEMP 36.6; O2SAT 99
[2025-03-22 19:36] VITALS: BP 135/104; PULSE 130; RESP 20; O2SAT 97
--- NOTE | 2025-03-22 19:42 | ED.RN ---
Upon assessment, the patient states that she is in 10/10 generalized pain with sharp, stabbing pain in her back. During the assessment, the patient is wailing in bed and freely moving all extremities erratically. When asked to ambulate the patient denied being able to ambulate, however the patient tolerated transferring into the bed from a wheelchair well. MD ocampo.
--- NOTE | 2025-03-22 19:59 | RAD_ITS ---
PROCEDURE: THORACIC SPINE 2 VIEWS; LUMBAR SPINE 2 OR 3 VIEWS 03/22/2025 REASON FOR EXAM: FELL DOWN MULTIPLE STEPS TECHNIQUE: THORACIC SPINE 2 VIEWS; LUMBAR SPINE 2 OR 3 VIEWS COMPARISON: None. FINDINGS: No evidence of acute fracture or subluxation. Vertebral body height is preserved. Alignment is anatomic. No significant degenerative changes are appreciated. Well preserved disc spaces. Unremarkable soft tissues. Right upper abdominal cholecystectomy surgical clips. RAD/Lumbar Spine 2 or 3 Views IMPRESSION: No evidence of acute fracture or subluxation. Reading Location: [id number]
--- NOTE | 2025-03-22 20:01 | ED.VIS.BACK ---
HPI History of Present Illness Chief Complaint: Back Informant: patient and spouse/S.O. Onset/Context/Timing Onset: Today Context: Sudden Onset Injury: direct trauma and fall (Fell down about 14 steps injuring her back.) Timing: Continuous Quality: Sharp Location: Thoracic and Lumbar Current Severity: Moderate Maximum Severity: Moderate Worsened by: improves with Movement Relieved by: Nothing Associated Symptoms Associated Symptoms: Negative for Numbness, Tingling, Radiation to Right Leg, Radiation to Left Leg, Fever, Abdominal Pain, Dysuria, Unable to Ambulate, Unable to Transfer, Urinary Retention, Urinary Incontinence, Constipation or Fecal Incontinence Narrative Narrative: 25-year-old female with a history of chronic pain syndrome having uterine cancer. She sees pain management the [facility]. Recently received a back injection for pain. Today she was at home wearing socks slipped going down steps said she fell on her buttock and went down about 14 steps. No LOC. No blood thinners. Only complaint is thoracic and lumbar back pain. No prior back surgeries. No weakness nor numbness nor tingling to her legs. No neck pain. No headache. Prior similar symptoms: No Recent Illness/Hospitalization: [facility] Medical History Cholecystectomy planned Intractable nausea and vomiting Gastroparesis Cyclic vomiting syndrome History of alcohol abuse Ureteral stricture, left Retained ureteral stent Hypertension Depression Ureterolithiasis Ureter injury Non-smoker Endometrial cancer PCOS (polycystic ovarian syndrome) Home Medications ?Medication ?Instructions ?Recorded ?Last Taken ?Type gabapentin 600 mg tablet 600 mg PO TID #90 tabs 11/30/24 11/30/24 Rx methocarbamol 500 mg tablet 500 mg PO TID #90 tabs 11/30/24 11/30/24 Rx mirtazapine 15 mg disintegrating 15 mg PO QHS #30 tabs 11/30/24 11/30/24 Rx tablet ondansetron 4 mg disintegrating 4 mg PO Q6H PRN nausea and 11/30/24 11/30/24 Rx tablet vomiting #90 tabs pantoprazole 40 mg tablet,delayed 40 mg PO BID #60 TABLETS 11/30/24 11/30/24 Rx release dicyclomine 10 mg capsule 10 mg PO TID #90 caps 01/31/25 Unknown Rx alprazolam 0.5 mg tablet 0.5 mg PO TID PRN PRN abdominal 03/22/25 Unknown History Held on 03/22/25. pain Instructions: [facility] 10 mg tablet 10 mg PO QHS 03/22/25 Unknown History hyoscyamine sulfate 0.125 mg 0.125 mg sublingual 4X/DAY 03/22/25 Unknown History sublingual tablet metoclopramide HCl 5 mg/5 mL oral 10 mg PO TID 03/22/25 Unknown History solution Allergy/AdvReac Type Severity Reaction Status Date / Time ceftriaxone (From Rocephin) Allergy Hives Verified 03/22/25 19:24 promethazine (From Phenergan) Allergy Vomiting Verified 03/22/25 19:24 Ringer's solution,lactated Allergy Hives Verified 03/22/25 19:24 acetaminophen (From [place]) AdvReac Nausea Verified 03/22/25 19:25 hydrocodone (From [place]) AdvReac Nausea Verified 03/22/25 19:25 Family History Father No problems noted. Mother Anxiety and depression GERD (gastroesophageal reflux disease) Surgical History History of renal stent History of hysterectomy for cancer Social History household members: family Smoking Status: Never smoker alcohol intake: former substance use type: marijuana and other details: No marijuana use in the last month ROS ROS ED ROS Narrative Denies recent illness. Constitutional Constitutional ED: Denies chills or fever(s) Eyes Eyes: Denies blurry vision ENT ENT ED: Denies ear pain Cardiovascular Cardiovascular: Denies chest pain or palpitations Respiratory/Chest Respiratory/Chest: Denies dyspnea or dyspnea on exertion Gastrointestinal Gastrointestinal: Denies abdominal pain Genitourinary Genitourinary ED: Denies dysuria or hematuria Musculoskeletal Musculoskeletal: Denies arthralgias, back pain or myalgias Integumentary Denies abscess or Abrasions Neurologic Neurologic: Denies headache(s) Psychiatric Psychiatric: Denies anxiety or depression Endocrine Endocrinology: Denies cold intolerance Hematologic/Lymphatic Hematologic/Lymphatic: Denies easy bleeding, easy bruising or lymphadenopathy Allergic/Immunologic Allergic/Immunologic ED: Denies mouth swelling, tongue swelling or urticaria EXAM Physical Exam Narrative Exam Narrative: 25-year-old female sitting upright in bed. Vital signs are stable. She is afebrile. She complained back pain. H EENT exam pupils round reactive light. No trauma to her face or scalp. Nontender no hematoma. C-spine and neck nontender. Lungs clear to auscultation bilaterally. Heart tachycardic 120 no murmur. Chest wall and ribs nontender. Abdomen soft nontender. No peritoneal signs. No bruising. Pelvic girdle intact. Moving all 4 extremities. Normal strength. Normal range of motion. Nontender no deformity. Back she has tenderness along her thoracic and lumbar spine. There is no ecchymosis or bruising. There is a Band-Aid on thoracic spine from where she had a prior injection. Neurologically she is awake alert. Answering questions following commands. No focal motor or sensory deficits. No cauda equina. Normal television announcer strength. Normal sensation. GCS of 15. Const Vital Signs: 03/22/25 19:24 03/22/25 19:36 03/22/25 20:13 Temperature 98 F Temperature Source Temporal Pulse Rate 144 H 130 H 129 H Respiratory Rate 19 H 20 H 18 Blood Pressure 142/121 H 135/104 H 157/102 H Blood Pressure Mean 128 114 120 Pulse Ox 99 97 98 Oxygen Delivery Method Room Air Room Air Room Air Positive well nourished and well developed; Negative for cachectic, contractures or unkempt General Appearance ED: well developed; Negative for unkempt, cachectic, contractures, NAD or pallor Nutritional Appearance: Negative for cachectic HEENT Reports moist mucous membranes Negative for trauma or tenderness Eyes PERRL and EOMs intact bilaterally Neck no lymphadenopathy, supple and no JVD General: Negative for tenderness Resp normal respiratory effort and clear to auscultation bilaterally Cardio regular rhythm, S1 normal heart sound, S2 normal heart sound and no murmurs; Negative for regular rate Rate: tachycardic GI normal to inspection, nondistended, normoactive bowel sounds, soft to palpation, non-tender, non-distended and no masses Palpation: Negative for tender or guarding Back/Spine normal to inspection; Negative for no thoracic nor lumbar tenderness Back/Spine Narrative: Both thoracic and lumbar tenderness. No bruising. Cervical Spine: Negative for cervical spine tenderness and Negative for paracervical muscle tenderness Thoracic Spine / Upper Back: paraspinal muscle tenderness Extremity normal to inspection and no clubbing, cyanosis or edema General Extremety ED: Negative for edema or tenderness General Extremity: Negative for edema Neuro oriented x3 and no sensory deficits noted Sensorium / Orientation: alert; Negative for confused, lethargic or stuporous Motor Exam: strength 5/5 throughout Psych mental status grossly normal Appearance: Negative for unkempt Attitude: No agitated Mood & Affect: Negative for depressed, sad or tearful Skin no rashes or lesions noted and no wounds General Skin Exam: Negative for jaundice or pallor Lesions: No lesion noted Rashes: No rashes noted Trauma: Negative for abrasion or puncture Wounds: Negative for wounds noted Image ED - Body Diagram Man:  1. Thoracic and lumbar spine tenderness post fall. No bruising. MDM MDM MDM Narrative Medical decision making narrative: 25-year-old female chronic pain fell down steps injuring her back. Should be given morphine for pain, Zofran and Toradol IV. X-rays of her thoracic and lumbar spine. Repeat exam at 8:45 PM. Patient is much more comfortable after IV morphine and Toradol. Repeat exam of her back again no bruising. No significant change. She had I and her went over her x-rays which were negative. She will be discharged home. Ice. Hot shower warm bath. Massage. Motrin and Tylenol. Her pain management meds as needed. She is comfortable with the plan. History & Record Review Discussion w/independent historian: Patient and Family Additional record(s) reviewed:: Prior inpatient record, Prior outpatient record, Prior ED visit and Prior labs Radiography Diagnostic Testing: Thoracic spine x-rays, interpreted by myself, 2 views AP and lateral shows no acute fracture. No acute abnormality. Normal cardiac silhouette. Normal lung goel. Normal ribs. Lumbar spine x-rays, 2 views AP and lateral, interpreted by self shows no acute fracture. No acute abnormality. Discharge Plan Triage Chief Complaint: Back ED Provider: Jerrell Lozada Dx/Rx/DC Orders Clinical Impression: Fall, Back contusion, Back sprain, History of chronic back pain Instructions: ED Back Sprain/Strain, ED Back Contusion Prescriptions: No Action gabapentin 600 mg tablet 600 mg PO TID Qty: 90 2RF methocarbamol 500 mg tablet 500 mg PO TID Qty: 90 0RF mirtazapine 15 mg tablet,disintegrating 15 mg PO QHS Qty: 30 2RF ondansetron 4 mg tablet,disintegrating 4 mg PO Q6H PRN (Reason: nausea and vomiting) Qty: 90 0RF pantoprazole 40 mg tablet,delayed release (DR/EC) 40 mg PO BID Qty: 60 2RF metoclopramide HCl 5 mg/5 mL solution 10 mg PO TID alprazolam 0.5 mg tablet 0.5 mg PO TID PRN PRN (Reason: abdominal pain) amitriptyline 10 mg tablet 10 mg PO QHS hyoscyamine sulfate 0.125 mg tablet, sublingual 0.125 mg sublingual 4X/DAY dicyclomine 10 mg capsule 10 mg PO TID Qty: 90 0RF Primary Care Provider: Care Physician,No Primary Referrals: Care Physician,No Primary [Primary Care Provider] - Activity Restrictions/Additional Instructions: Hot shower, warm bath, whirlpool tub or hot tub and massage. All to help relax the muscles in your back. Motrin for pain and inflammation Tylenol for pain. Follow-up with your pain management doctors as needed. Your x-rays look good nothing broken. Print Language: Danish Disposition Disposition: Home, Self Care
[2025-03-22] MEDS: Ketorolac 30 MG/ML Syringe IV (20:10)
[2025-03-22 20:13] VITALS: BP 157/102; PULSE 129; RESP 18; O2SAT 98
--- NOTE | 2025-03-22 20:28 | RAD_ITS ---
PROCEDURE: THORACIC SPINE 2 VIEWS; LUMBAR SPINE 2 OR 3 VIEWS 03/22/2025 REASON FOR EXAM: FELL DOWN MULTIPLE STEPS TECHNIQUE: THORACIC SPINE 2 VIEWS; LUMBAR SPINE 2 OR 3 VIEWS COMPARISON: None. FINDINGS: No evidence of acute fracture or subluxation. Vertebral body height is preserved. Alignment is anatomic. No significant degenerative changes are appreciated. Well preserved disc spaces. Unremarkable soft tissues. Right upper abdominal cholecystectomy surgical clips. RAD/Thoracic Spine 2 Views IMPRESSION: No evidence of acute fracture or subluxation. Reading Location: [id number]
[2025-03-22 20:54] VITALS: BP 156/83; PULSE 116; RESP 18; TEMP 36.6; O2SAT 99
== END 2025-03-22 20:55 | disposition home or self-care (01) ==
PROVIDERS: Emergency Provider Emergency Medicine; Visit Provider Emergency Medicine
DX: M54.9 Dorsalgia, unspecified (principal); S20.229A Contusion of unspecified back wall of thorax, initial encounter; Z90.710 Acquired absence of both cervix and uterus; W10.9XXA Fall (on) (from) unspecified stairs and steps, initial encounter; I10 Essential (primary) hypertension; G89.29 Other chronic pain; Z85.42 Personal history of malignant neoplasm of other parts of uterus; Z90.49 Acquired absence of other specified parts of digestive tract; F41.9 Anxiety disorder, unspecified; Z79.899 Other long term (current) drug therapy
CPT/HCPCS: 72070; 72100; 96374; 96375; 99283; J2405

== ENCOUNTER 2025-03-27 19:04 | Emergency (ER) | payer MEDICAID, SELFPAY ==
[2025-03-27 19:05] VITALS: BP 160/104; PULSE 131; RESP 22; TEMP 36.6; O2SAT 100
--- NOTE | 2025-03-27 19:44 | RAD_ITS ---
PROCEDURE: KNEE 4 OR MORE VIEWS 03/27/2025 REASON FOR EXAM: FALL TECHNIQUE: KNEE 4 OR MORE VIEWS FINDINGS: No fracture, dislocation or effusion RAD/Knee 4 or More Views IMPRESSION: Negative right knee Reading [facility]
--- NOTE | 2025-03-27 21:33 | ED.RN ---
Pt sitting in wheelchair in triage. Every time that staff members go to triage, pt looks at them and moans/cries while staring at staff member.
--- NOTE | 2025-03-27 21:35 | ED.RN ---
PT. MOTHER APPROACHED THE NURSES STATION AND ASKED ABOUT WAIT TIMES AND WHY PEOPLE WERE BEING SEEN BEFORE [facility]. THIS NURSE BRIEFLY EDUCATED FAMILY MEMBER ON THE TRIAGE PROCESS. FAMILY INFORMED THAT X-RAY IS RESULTED. ICE PACK OFFERED. PT. SEEN TO BE GROANING, MOANING, AND GESTURING TOWARDS RIGHT LOWER EXTREMITY STAFF OR PATIENTS MOVE BY IN HALLWAY, THEN SILENT WHEN NO ONE IS PRESENT.
--- NOTE | 2025-03-27 22:39 | EDS_ITS ---
HPI History of Present Illness Chief Complaint: Lower Extremity Injury Informant: patient and spouse/S.O. Onset/Context/Timing Onset: Days Context: Gradual Onset Timing: Continuous Current Severity: Moderate Maximum Severity: Moderate Narrative Narrative: 25-year-old female history of cyclic vomiting, prior hysterectomy due to uterine cancer and chronic pain syndrome. A week ago. Was seen here on March 22. Had negative x-rays of her thoracic and lumbar spine. She reportedly fell down multiple steps at home. At that time was not complaining of any other injuries. Now she is complaining of right knee pain that began the day after she was evaluated. And rib cage pain. No LOC. She was seen on the . Was treated with Toradol and morphine for pain at that time. She had negative x-rays. Prior similar symptoms: No Recent Illness/Hospitalization: No [facility] Medical History Cholecystectomy planned Intractable nausea and vomiting Gastroparesis Cyclic vomiting syndrome History of alcohol abuse Ureteral stricture, left Retained ureteral stent Hypertension Depression Ureterolithiasis Ureter injury Non-smoker Endometrial cancer PCOS (polycystic ovarian syndrome) Home Medications ?Medication ?Instructions ?Recorded ?Last Taken ?Type gabapentin 600 mg tablet 600 mg PO TID #90 tabs 11/3011/30/24 Rx methocarbamol 500 mg tablet 500 mg PO TID #90 tabs 11/30/24 Rx mirtazapine 15 mg disintegrating 15 mg PO QHS #30 tabs 11/30/24 11/30/24 Rx tablet ondansetron 4 mg disintegrating 4 mg PO Q6H PRN nausea and 11/30/24 11/30/24 Rx tablet vomiting #90 tabs pantoprazole 40 mg tablet,delayed 40 mg PO BID #60 TAB LETS 11/30/24 11/30/24 Rx release dicyclomine 10 mg capsule 10 mg PO TID #90 caps Unknown Rx alprazolam 0.5 mg tablet 0.5 mg PO TID PRN PRN abdomi nal 03/22/25 Unknown History Held on 03/22/25. pain Instructions[facility] 10 mg tablet 10 mg PO QHS 03/22/25 Unkno wn History hyoscyamine sulfate 0.125 mg 0.125 mg sublingual 4X/DA Y 03/22/25 Unknown History sublingual tablet metoclopramide HCl 5 mg/5 mL oral 10 mg PO TID 5 Unknown History solution Allergy/AdvReac Type Severity Reaction Status Date / Time ceftriaxone (From Rocephin) Allergy Hives Verified 03/27/25 19:06 promethazine (From Phenergan) Allergy Vomiting Verified 03/27/25 19:06 Ringer's solution,lactated Allergy Hives Verified 03/27/25 19:06 acetaminophen (From [place]) AdvReac Nausea Verified 03/27/25 19:06 hydrocodone (From [place]) AdvReac Nausea Verified 03/27/25 19:06 Family History Father No problems noted. Mother Anxiety and depression GERD (gastroesophageal reflux disease) Surgical History History of renal stent History of hysterectomy for cancer Social History household members: family Smoking Status: Never smoker alcohol intake: former substance use type: marijuana and other details: No marijuana use in the last m onth ROS ROS ED ROS Narrative Back, rib and right knee pain. Constitutional Constitutional ED: Denies chills or fever(s) Eyes Eyes: Denies blurry vision Cardiovascular Cardiovascular: Reports other Details: Lateral rib cage pain bilaterally. ; Denies chest pain Respiratory/Chest Respiratory/Chest: Denies cough or dyspnea Gastrointestinal Gastrointestinal: Denies abdominal pain Genitourinary Genitourinary ED: Denies dysuria or hematuria Musculoskeletal Musculoskeletal: Reports back pain; Denies arthralgias Integumentary Denies abscess or Abrasions Neurologic Neurologic: Denies headache(s) Psychiatric Psychiatric: Denies anxiety Endocrine Endocrinology: Denies cold intolerance Hematologic/Lymphatic Hematologic/Lymphatic: Reports none Allergic/Immunologic Allergic/Immunologic ED: Denies mouth swelling, tongue swelling or urticaria EXAM Physical Exam Narrative Exam Narrative: Well-appearing 25-year-old female sitting upright in a wheelchair. Vital signs are stable. She is afebrile. Initially she is tachycardic currently her heart rate is about 100. Significant other in the room. H EENT exam pupils round react to light. Extra motions are intact. No trauma to her scalp or face. C- spine and neck nontender. Back diffuse tenderness but no ecchymosis or bruising. No specific spinal tenderness. Lungs clear to auscultation bilaterally. Heart regular rhythm rate about 100 no murmur. Bilateral lateral rib cages are tender. But there is no ecchymosis or bruising. No subcu air or crepitus. Sternum is nontender. Abdomen soft nontender normal bowel sounds without peritoneal signs. No tenderness. No bruising. Pelvic girdle intact. Moving all 4 extremities. Full range of motion. Specific complaint right knee there is no swelling or discoloration. No bruising. She has full flexion extension of the right knee. Extensor mechanism is intact. ACL PCL intact. MCL and LCL are intact. There is no effusion. Normal dorsi plantarflexion. Normal strength and sensation both upper and lower extremities. Normal range of motion. Neurologically she is awake alert. Answering questions following commands. Benign exam. No signs of trauma other than her subjective tenderness. Const Vital Signs: 03/27/25 19:05 03/27/25 23:06 Temperature 97.8 F Temperature Source Temporal Pulse Rate 131 H 87 Respiratory Rate 22 H 18 Blood Pressure 160/104 H 148/89 H Blood Pressure Mean 122 108 Pulse Ox 100 Oxygen Delivery Method Room Air Positive well nourished and well developed; Negative for cachectic, contractures or unkempt General Appearance ED: well developed; Negative for unkempt, cachectic, contractures, cyanotic, diaphoretic or pallor Nutritional Appearance: Negative for cachectic HEENT Reports moist mucous membranes Negative for trauma or tenderness Eyes PERRL and EOMs intact bilaterally General Eye ED: Negative for pale conjunctiva or scleral icterus Neck no lymphadenopathy, supple and no JVD Chest Wall inspection of chest normal; Negative for palpation of chest normal Chest Narrative: Bilateral lateral rib cage tenderness. But no ecchymosis or bruising. No subcu air or crepitance. No bony deformity. Resp normal respiratory effort and clear to auscultation bilaterally Cardio regular rate, regular rhythm, S1 normal heart sound, S2 normal heart sound and no murmurs GI normal to inspection, nondistended, normoactive bowel sounds, non-tender and non-distended Palpation: soft; Negative for tender, guarding or rebound tenderness present Back/Spine no CVA tenderness Back/Spine Narrative: Diffuse soft tissue tenderness of her back not spinal tenderness.No bruising. No discoloration. No signs of trauma. No abrasions or contusions. Cervical Spine: Negative for cervical spine tenderness Thoracic Spine / Upper Back: paraspinal muscle tenderness; Negative for thoracic spinal tenderness Lumbar Spine / Lower Back: Negative for lumbar spinal tenderness Extremity normal to inspection Extremity Narrative: Planing of right knee pain. Over the right knee is full flexion extension. There is no swelling. No effusion. ACL and PCL are intact. MCL and LCL are intact. Tensor mechanism is intact. Normal dorsi plantarflexion bilaterally. General Extremety ED: Negative for edema or tenderness General Extremity: Negative for edema Neuro oriented x3, CN's II-XII intact bilaterally and no sensory deficits noted Sensorium / Orientation: alert Motor Exam: strength 5/5 throughout Psych mental status grossly normal Appearance: Negative for unkempt Skin no rashes or lesions noted, no wounds and skin turgor normal General Skin Exam: Negative for jaundice or pallor Rashes: No rashes noted Trauma: Negative for abrasion Wounds: Negative for wounds noted MDM MDM MDM Narrative Medical decision making narrative: 25-year-old female chronic pain syndrome fell on the 16th was seen at that time had negative x-rays of her thoracic and lumbar spine. Complaining of rib cage pain and knee pain today. Knee x-rays already been obtained and are negative. She will be given Motrin for pain. I am obtaining a chest x-ray. Repeat exam patient is doing well at 11:47 PM. I went over her x-rays with her. They were both negative. She will be discharged home. Ice also areas. Motrin Tylenol for pain. Follow-up as needed. History & Record Review Discussion w/independent historian: Patient Additional record(s) reviewed:: Prior inpatient record, Prior outpatient record, Prior ED visit and Prior labs Radiography Chest X-Ray - ED: 2 View, Read by ED Physician, Lungs, Mediastinum, Bony Structures, No Acute Disease and Chronic Changes Diagnostic Testing: Clinical Impression(s) from Imaging Studies Knee X-Ray 03/27/25 19:44 IMPRESSION: Negative right knee Reading [facility] Chest X-Ray 03/27/25 23:28 IMPRESSION: No acute chest findings. Reading Location: [id number] Right knee x-ray, 4 views, interpreted both by myself and the radiologist. No acute abnormality. No fracture. No dislocation. No effusion. No significant swelling. Chest x-ray, 2 views AP and lateral, interpreted by myself shows no acute abnormality. No fracture. No pneumothorax. Also read by the radiologist agrees. Discharge Plan Triage Chief Complaint: Lower Extremity Injury ED Provider: Jerrell Lozada Dx/Rx/DC Orders Clinical Impression: Fall, Back contusion, Right knee sprain, Bilateral contusion of ribs Instructions: ED Chest Wall Contusion, ED Knee Sprain Prescriptions: No Action gabapentin 600 mg tablet 600 mg PO TID Qty: 90 2RF methocarbamol 500 mg tablet 500 mg PO TID Qty: 90 0RF mirtazapine 15 mg tablet,disintegrating 15 mg PO QHS Qty: 30 2RF ondansetron 4 mg tablet,disintegrating 4 mg PO Q6H PRN (Reason: nausea and vomiting) Qty: 90 0RF pantoprazole 40 mg tablet,delayed release (DR/EC) 40 mg PO BID Qty: 60 2RF metoclopramide HCl 5 mg/5 mL solution 10 mg PO TID alprazolam 0.5 mg tablet 0.5 mg PO TID PRN PRN (Reason: abdominal pain) amitriptyline 10 mg tablet 10 mg PO QHS hyoscyamine sulfate 0.125 mg tablet, sublingual 0.125 mg sublingual 4X/DAY dicyclomine 10 mg capsule 10 mg PO TID Qty: 90 0RF Primary Care Provider: Care Physician,No Primary Referrals: Care Physician,No Primary [Primary Care Provider] - Shawn Nam, [employer] [[facility]] - 1 Week if not improving Activity Restrictions/Additional Instructions: Ice all sore areas. Motrin for pain and swelling. Tylenol for pain. This should progressively start to improve. If not follow-up with your primary care provider. All your x-rays tonight and the other night were negative. No broken bones. Print Language: Khmer Disposition Disposition: Home, Self Care
--- OUTSIDE RECORDS SUMMARY | 2025-03-27 23:01 | XMS RPT_ITS | CCD ---
Author Organization [facility] Care Team Providers Care Director Speech Name Role Phone Unavailable Primary Care Provider UnavailHali Shields MD Primary Care Provider [phone] BERRY AUGUSTE Primary Care Physician Dr. Moose Liu Emergency Provider Care Physician, No Primary Primary Care Provider Unavailable Dr. Ashely Zepeda Admit Provider Dr. Ashley Zepeda Attending Provider Dr. Ashley Zepeda Other Provider Dr. Dnaiel Fatima Attending Provider Unavailable Dr. Daniel Fatima Other Provider Unavailable Dr. Patti Santos Emergency Provider Dr. Tj Willams Primary Care Provider Dr. Sandy Solis Admit Provider Dr. Sandy Solis Other Provider Dr. Jade Rowell Other Provider Dr. Corine Combs Attending Provider Dr. Corine Combs Other Provider Dr. Jade Rowell Attending Provider MD Kevin San Emergency Provider Dr. Rodolfo Reid Admit Provider Dr. Rodolfo Reid Attending Provider Dr. Rodolfo Reid Other Provider Dr. Josué Marquez Other Provider Dr. Josué Marquez Attending Provider BINDU MARTINEZ, DR STANFORD Hansen Attending MD BERRY Paniagua S Primary Care Unavailable Delong, Nanette S Unavailable Unavailable ALBERTO ENCARNACION Attending Unavailable LUKASZ SIERRA Referring Unavailable FRIEND, CORINE B Primary Care Unavailable MARY HEBERT Admitting Unavailable FRIEND, CORINE B Primary Care Unavailable JENNIFER KRISHNAMURTHY Attending Unavailable PROVIDER, UNKNOWN Consulting Unavailable PHYSICIAN, NONE Primary Care Unavailable DONAVAN IBARRA MD Attending Unavailable PHYSICIAN, NONE Primary Care Physician Unavailab le Unavailable Primary Care Provider Unavailanand rivers PHYSICIAN, NONE Primary Care Unavailable MARYANA SALDIVAR DO Attending Unavailable KASEY KRUGER MD Attending Unavailable KASEY KRUGER MD Primary Care Unavailable KSAEY KRUGER MD Admitting Unavailable ERIC SIMPSON Attending Unavailable CONSULT, GASTROENTEROLOGY Consulting [place] do Velia GUEVARA, Corine B Primary Care Provider Unavailable Primary Care Provider UnavailNINO Perez Referring Unavailable XAVIER MARK Attending Unavailable WAYT PA, GOPAL Primary Care Physician RACHELLE MONSON Attending Unavailable PHILLIP, ROXANN Primary Care Unavailable ANTHONY TOBIN Attending Unavailable EDUARDO RUBIN Attending Unavailable LALO LU Consulting Unavailable ANDERSON MENDSOA Admitting Unavailable ABA GODINEZ Attending Unavailable ABA GODINEZ Admitting Unavailable PHILLIP, ROXANN Primary Care Unavailable ABA GODINEZ Admitting Unavailable KATE FIGUEROA Attending Unavailable WAYT PA, GOPAL Primary Care Unavailable ALFONSO DAILEY MD Attending Unavailable PHYSICIAN, NONE Primary Care Unavailable NETTE TANNER MD Attending Unavailable PREM ARRIAGA DO Admitting Unavailable WAYT PA, GOPAL Primary Care Unavailable STEVE WILBURN MD Attending Unavailable WAYT PA, GOPAL Primary Care Unavailable FROMMELMARYANA Chadwick DO Attending Unavailable PHYSICIAN, NONE Primary Care Unavailable LUIS GUEVARA, DR CARLOS ALBERTO Nair Attending UnavailMD BERRY Ash Primary Care Unavailable WIL MARTINEZ, DR WILSON Attending Unavailab le PHYSICIAN, NONE Primary Care Unavailable DIEGO KAM MD Attending Unavail able WAYT PA, GOPAL Primary Care Unavailable FROMMELT , MARYANA Attending Unavailable JERRY QUIÑONES, GOPAL Primary Care Unavailable ALEN POMPA DO Attending Unavailable JERRY QUIÑONES, GOPAL Primary Care Unavailable FROMMARYANA HAZEL DO Attending Unavailable Boy Solis Primary Care Provider GELA WEINSTEIN Admitting Unavailable SHARI MCDONOUGH Attending Unavailable CAMERONJAIME MARI Referring Unavailable FRIEND, CORINE B Primary Care Unavailable KASSAY, QUEENIE Referring Unavailable FRIEND, CORINE B Primary Care Unavailable FRIEND, CORINE B Primary Care Unavailable KASSAY, QUEENIE Referring Unavailable FRIEND, CORINE B Primary Care Unavailable KASSAY, QUEENIE Referring Unavailable SHANTE SOUTH Admitting Unavailable LILIBETH HEBERT Attending Unavailable FRIEND, CORINE B Primary Care Unavailable FRIEND, CORINE B Primary Care Unavailable GELA WEINSTEIN Admitting Unavailable THUESTAD, KYLIE A Attending Unavailable THUESNOLAD, KYLIE A Referring Unavailable FERMÍN ORTIZ Attending Unavailable NINO BUTLER Attending Unavailable MARÍA PACHECOJAM Admitting Unavailable WICHO ALVARADO Attending Unavailable FRIEND, CORINE B Primary Care Unavailable FERMÍN ORTIZ Admitting Unavailable FERMÍN ORTIZ Attending Unavailable REG TOBIN Admitting Unavailable MITRA MAYO Attending Unavailable Care Physician, No Primary Primary Care Unava ilable Judy Hutson Attending Unavailable Mallapareddi, Tj Primary Care Unavailable Cameron Dawkins F Admitting Unavailable Jorge Dawkinsolas F Attending Unavailable Jorge Dawkinsolas F Consulting Unavailable Patti Santos Attending Unavailable Care Physician, No Primary Primary Care Unava ilable Gregory Cash Attending Unavailable Shailesh, Gregory Consulting Unavailable Friend, Corine Attending Unavailable Mallapareddi, Tj Referring Unavailable Mallapareddi, Tj Primary Care Unavailable Care Physician, No Primary Referring Unava ilable Care Physician, No Primary Primary Care Unava ilable Berry Walsh Attending Unavailable Friend, Corine Attending Unavailable Mallapareddi, Tj Primary Care Unavailable Mallapareddi, Tj Referring Unavailable [place], Robina Primary Care Unavailable Berry Walsh Attending Unavailable Berry Walsh Referring Unavailable Xavier Patterson Attending Unavailable Care Physician, No Primary Primary Care Unava ilable Care Physician, No Primary Primary Care Unava ilable Henriquez, Jamey Attending Unavailable Cameron Dawkins Admitting Unavailable Mallapareddi, Tj Primary Care Unavailable Cameron Dawkins Consulting Unavailable Gregory Cash Attending Unavailable Robina Watson Primary Care Unavailable Kevin San Attending Unavailable Rei Tatum Attending Unavailable Mallapareddi, Jt Primary Care Unavailable Mallapareddi, Tj Primary Care Unavailable Henriquez, Jamey Attending Unavailable Care Physician, No Primary Primary Care Unava ilable Jerrell Lozada Attending Unavailable Mallapareddi, Tj Primary Care Unavailable Kevin San Attending Unavailable Allergies Allergy Classification Reported Allergen(s) Allergy Type Date of Onset Reaction(s) Facility Opioid Agonists (4 sources) Morphine Drug Allergy 1 Shortness Of Breath [facility] Un[facility] (12 sources) Promethazine-Phen ylephrine Propensity to adverse reactions to drug 1 Nausea And Vomiting [facility] (20 sources) Promethazine; Translations: [promethazine] Drug Allergy 1 Vomiting Only, Vomiting [facility] (20 sources) Calcium Chloride / Lactate / Potassium Chloride / Sodium Chloride; Translations: [LACTATED RINGERS] Drug Allergy 1 Rash, Hives, Itching, Other, Other: See Comments [facility] (20 sources) cefTRIAXone; Translations: [ceftriaxone] Drug Allergy 2 Hives, Itching, Other, Unknown [facility] (12 sources) Lactated Ringer's Solution Drug Allergy 2 Hives [facility] (11 sources) Magnesium Chloride / Potassium Chloride / potassium phosphate / Sodium Acetate / Sodium Chloride / Sodium gluconate / Sodium Phosphate, Dibasic; Translations: [LVP solution] Drug Allergy [facility] (1 source) cefTRIAXone Drug Allergy [facility] (1 source) Promethazine Drug Allergy [facility] (2 sources) Acetaminophen / HYDROcodone; Translations: [HYDROCODONE-ACET AMINOPHEN] Drug Allergy 5 GI Upset [facility] (1 source) Acetaminophen Drug Allergy 5 [facility] (1 source) cefTRIAXone Drug Allergy 5 [facility] (1 source) HYDROcodone Drug Allergy 5 [facility] (1 source) Promethazine Drug Allergy 5 [facility] (1 source) Ringer's solution,lactated Drug allergy (disorder) 5 [facility] Medications Current Medications Medication Drug Class(es) Dates Sig (Normalized) Sig (Original) acetaminophen 325 mg / HYDROcodone bitartrate 5 mg oral tablet (16 sources) Opioid Agonist Start: 03-11-2025 End: 03-14-2025 take 1 tablet by mouth every six hours as needed for pain Connell 325- 5 mg oral tablet Dose = 1 tab(s), Oral, q6h, PRN for pain, X 3 day(s), # 5 tab(s), 0 Refill(s), Abdominal pain in female, 105.1 Start Date: 03/11/25 Stop Date: 03/14/25 Status: Ordered Quantity: 5.0 Unit: tab(s) Repeat number: 1 Indications: Unspecified abdominal pain; Start: 09-08-2024 End: 02-15-2025 take 1 tablet by mouth four times daily as needed for pain Connell 325- 5 mg oral tablet Dose = 1 tab(s), Oral, QID, PRN as needed for pain, X 3 day(s), # 12 tab(s), 0 Refill(s), May take 1-2 tablets per dose, Abdominal pain, 91.4 Start Date: 09/08/24 Stop Date: 09/11/24 Status: Ordered Quantity: 12.0 Unit: tab(s) Repeat number: 1 Indication: Unspecified abdominal pain Start: 12-10-2021 take 1 tablet by juan m th every six hours as needed Hydrocodone-Acetaminophen Active 1 TABLET PO EVERY 6 HOURS NEEDED 10 3 October 08, 2022 End: 03-10-2021 albuterol 0.833 mg/ml / ipratropium bromide 0.167 mg/ml inhalation solution (1 source) Anticholinergic, beta2-Adrenergic Agonist Start: 01-21-2021 1 ampule, Inhalation, EVERY 4 HOURS PRN, Shortness of Breath, Starting on Thu01/21/21 at 2309 amoxicillin 875 mg / clavulanate 125 mg oral tablet (1 source) Penicillin-class Antibacterial Start: 02-26-2023 End: 03-08-2023 take 1 tablet by mouth every twelve hours amoxicillin-clavu lanate 875 mg-125 mg oral tablet 1 tab(s), Oral, q12h, X 10 day(s), # 20 tab(s), 0 Refill(s), 03/08/23 16:16:00 EDT, Cat bite, 90 Start Date: 02/26/23 Stop Date: 03/08/23 Status: Ordered ascorbic acid 60 mg / beta carotene 5000 unt / copper sulfate 40 mg / dl-alpha tocopheryl acetate 30 unt / sodium selenite 0.04 mg / zinc oxide 40 mg oral tablet (1 source) Vitamin C take 1 tablet by mouth once daily Multiple Vitamins-Minerals (THERAPEUTIC MULTIVITAMIN-MINE RALS) tablet Take 1 tablet by mouth daily 0 Active benzonatate 100 mg oral capsule (1 source) Non-narcotic Antitussive Start: 01-21-2021 take 100 mg by mouth three times daily as needed for cough 100 mg, Oral, 3 TIMES DAILY PRN, Cough, Starting on 01/21/21 at 2309 bisacodyl 10 mg rectal suppository (3 sources) Stimulant Laxative Start: 09-18-2021 bisacodyl (DULCOLAX) suppository 10 mg Start: 02-24-2021 End: 03-03-2021 take 10 mg rectal route once daily 10 mg, Rectal, DAILY, First dose (after last modification) on 03/03/21 at 0900 calcium carbonate 500 mg chewable tablet (2 sources) Start: 12-30-2020 take 500 mg by mouth three times daily as needed for gastroesophageal reflux disease 500 mg, Oral, 3 TIMES DAILY PRN, Heartburn, Starting 12/30/20 at 1544 DO NOT GIVE WITHIN 4 HOURS OF CIPROFLOXACIN Start: 12-24-2020 calcium carbon ate (TUMS) chewable tablet 500 mg capsaicin 0.25 mg/ml topical cream (7 sources) Start: 10-16-2024 End: 11-15-2024 capsaicin (ZOSTRIX) 0.025 % cream Indications: Generalized abdominal pain Apply to affected area three times a day. 120 g 10/16/2024 11/15/2024 Active Start: 09-16-2024 End: 09-16-2025 capsaicin (Zostrix) 0.025 % cream Apply topically 2 times daily as needed for mild pain (1-3) (Apply to abdomen). 09/16/2024 09/20/2024 Discontinued (Side effects) clindamycin 300 mg oral capsule (2 sources) Lincosamide Antibacterial Start: 10-08-2022 take 1 capsule by mouth every six hours Clindamycin Hcl (Cleocin Hcl) 300 mg capsule Active 300 MG PO EVERY 6 HOURS October 08, 2022 1:00am diclofenac sodium 0.01 mg/mg topical gel (7 sources) Nonsteroidal Anti-inflammatory Drug Start: 09-08-2024 diclofenac 1% topical gel Apply 1 jairo, Topical, QID, # 100 gram(s), 0 Refill(s), Gel, 91.4 Start Date: 09/08/24 Status: Ordered Quantity: 100.0 Unit: g Repeat number: 1 diphenhydrAMINE hydrochloride 25 mg oral tablet (17 sources) Histamine-1 Receptor Antagonist Start: 09-10-2021 diphenhydrAMINE (BENADRYL) tablet 25 mg Start: 07-12-2021 End: 07-16-2021 take 1 capsule by mouth every six hours as needed Diphenhydramine Hcl (Banophen) 25 mg Capsule Discontinued 25 MG PO EVERY 6 HOURS NEEDED 0 July 12, 2021 12:00am July 16, 2021 11:42am Start: 01-22-2021 End: 01-22-2021 diphenhydrAMINE (BENADRYL) t ablet 25 mg Start: 01-13-2021 End: 01-13-2021 diphenhydrAMINE (BENADRYL) t ablet 25 mg Start: 12-31-2020 End: 12-31-2020 diphenhydrAMINE (BENADRYL) i njection 25 mg docusate sodium 100 mg oral capsule (20 sources) Start: 03-19-2021 End: 10-11-2021 docusate sodium (COLACE) 100 mg capsule 100 mg. 03/19/2021 Active Start: 02-24-2021 End: 02-24-2021 take 100 mg by mouth twice daily 100 mg, Oral, 2 TIMES DAILY, First dose (after last modification) on Thu02/24/21 at 0900 Do not crush or break. Start: 01-13-2021 take 100 mg by mouth twice daily as needed for constipation 100 mg, Oral, 2 TIMES DAILY PRN, Constipation, Starting Thu01/13/21 at 0204 Do not crush or break. Start: 12-30-2020 take 100 mg by mouth twice daily as needed for constipation 100 mg, Oral, 2 TIMES DAILY PRN, Constipation, Starting Thu12/30/20 at 1544 Do not crush or break. Start: 12-21-2020 take 100 mg by mouth twice daily as needed for constipation 100 mg, Oral, 2 TIMES DAILY PRN, Constipation, Starting Thu12/21/20 at 1646 Do not crush or break. take 1 capsule by mo ut twice daily docusate sodium (COLACE) 100 MG capsule Take 100 mg by mouth 2 times daily 0 Active glucagon (rdna) 1 mg injection (1 source) Antihypoglycemic Agent Start: 03-05-2021 take 1 mL intravenously every hour 1 mg, Intramuscular, PRN, Low blood sugar, Blood glucose less than 70 mg/dL and patient NOT ALERT or NPO and does not have IV access., Starting on Thu03/05/21 at 1601 After administration, attempt intravenous access and start D5W at 100 mL/hr. Repeat blood glucose in 15 minutes x2 and notify provider. 1 ml heparin sodium, porcine 5000 unt/ml prefilled syringe (12 sources) Unfractionated Heparin, Anti-coagulant Start: 09-16-2021 heparin (porcine) injection 5,000 Units Start: 03-04-2021 250 Units, Int racatheter, EVERY 12 HOURS, First dose on Thu03/04/21 at 1330 Each lumen. Do NOT administer to lumens with continuous fluids currently infusing. Line Care. Use 10 mL or larger syringe. Start: 03-04-2021 250 Units, Int racatheter, PRN, Line Care, after blood draws and after infusion, Starting on Thu03/04/21 at 1310 Do NOT administer to lumens with continuous fluids currently infusing. Line Care. Use 10 mL or larger syringe. Start: 03-04-2021 250 Units, Int ravenous, EVERY 12 HOURS SCHEDULED (2 times per day), First dose on Thu03/04/21 at 0915 Flush each lumen of PICC not connected to a continuous infusion. Start: 03-04-2021 250 Units, Int ravenous, PRN, Line Care, Starting on Thu03/04/21 at 0852 Flush each lumen of PICC. Start: 12-30-2020 250 Units, Int ravenous, EVERY 12 HOURS SCHEDULED (2 times per day), First dose (after last modification) on Thu12/30/20 at 2100 Flush each lumen of PICC not connected to a continuous infusion. Start: 12-30-2020 250 Units, Int racatheter, EVERY 12 HOURS, First dose (after last modification) on Thu12/30/20 at 1615 Each lumen. Do NOT administer to lumens with continuous fluids currently infusing. Line Care. Use 10 mL or larger syringe. Start: 12-30-2020 250 Units, Int racatheter, PRN, Line Care, after blood draws and after infusion, Starting Thu12/30/20 at 1544 Do NOT administer to lumens with continuous fluids currently infusing. Line Care. Use 10 mL or larger syringe. Start: 12-27-2020 heparin flush 100 UNIT/ML injection 250 Units 1 ml hydrALAZINE hydrochloride 20 mg/ml injection (1 source) Arteriolar Vasodilator Start: 02-27-2021 10 mg, Intravenous, EVERY 6 HOURS PRN, High Blood Pressure, SBP>160, Starting on Thu02/27/21 at 0121 ibuprofen 600 mg oral tablet (17 sources) Nonsteroidal Anti-inflammatory Drug Start: 01-13-2021 End: 03-10-2021 ibuprofen (MOTRIN) 600 mg tablet Take 600 mg by mouth. 01/14/2021 Active Start: 12-18-2020 End: 01-14-2021 take 1 tablet by mouth four times daily as needed for pain ibuprofen (ADVIL;MOTRIN) 600 MG tablet Take 1 tablet by mouth 4 times daily as needed for Pain 60 tablet 0 12/18/2020 01/14/2021 Discontinued (REORDER) iopamidol (ISOVUE-370) 76 % injection 75 mL (1 source) Start: 12-26-2020 iopamidol (ISO WINIFRED-370) 76 % injection 75 mL labetalol hydrochloride 5 mg/ml injectable solution (3 sources) beta-Adrenergic Festus Start: 09-04-2021 labetalol (NORMODYNE;TRANDATE) injection 10 mg Start: 02-27-2021 10 mg, Intrave nous, EVERY 6 HOURS PRN, High Blood Pressure, SBP >160 2nd line, Starting on Thu02/27/21 at 0121 Start: 01-21-2021 10 mg, Intrave nous, EVERY 4 HOURS PRN, High Blood Pressure, SBP>160. Use first prior to hydralazine if also ordered., Starting on Thu01/21/21 at 2309 HOLD for HR<60 lidocaine 0.04 mg/mg medicated patch (3 sources) Antiarrhythmic, Amide Local Anesthetic Start: 09-16-2021 lidocaine 4 % external patch 2 patch Start: 03-08-2021 take 15 mL by mouth every three hours as needed for pain 15 mL, Mouth/Throat, EVERY 3 HOURS PRN, Irritation, Other, throat pain, Starting on Thu03/08/21 at 1659 Start: 02-28-2021 End: 02-28-2021 apply 0.5 mL topically once Topical, ONCE, On 02/28 at 1330, For 1 dose Draw up and instill 0.5 mL into the nares 5 minutes before inserting tube. If oxymetazoline is also ordered, instill the Lidocaine jelly after instilling the oxymetazoline spray. LORazepam 0.5 mg oral tablet (2 sources) Benzodiazepine Start: 03-05-2021 take 0.25 mg by mouth every four hours as needed for anxiety 0.25 mg, Oral, EVERY 4 HOURS PRN, Anxiety, Starting on Thu03/05/21 at 1418 Start: 12-31-2020 LORazepam (ATI VAN) tablet 0.5 mg magnesium hydroxide 80 mg/ml oral suspension (1 source) Start: 09-18-2021 magnesium hydr oxide (MILK OF MAGNESIA) 400 MG/5ML suspension 30 mL megestrol acetate 40 mg oral tablet (1 source) Progestin Start: 11-16-2020 take 2 tablets by mouth twice daily megestrol (MEGACE) 40 MG tablet Indications: Endometrial cancer (HCC) 2 po bid (16o mg/day) 120 tablet 3 11/16/2020 Active melatonin 3 mg oral tablet (3 sources) Start: 09-05-2024 take 1 tablet by mouth every twenty-four hours as needed melatonin 3 mg tablet Take 1 tablet by mouth at bedtime as needed for insomnia. 30 tablet 09/05/2024 Active Start: 09-14-2021 melatonin tabl et 5 mg Start: 01-21-2021 take 3 mg by mouth o nce daily as needed for sleep 3 mg, Oral, NIGHTLY PRN, Sleep, Starting on 01/21/21 at 2309 meloxicam 7.5 mg oral tablet (1 source) Nonsteroidal Anti-inflammatory Drug Start: 09-25-2021 take 1 tablet by mouth once daily meloxicam (MOBIC) 7.5 MG tablet Indications: Left lower quadrant abdominal pain Take 1 tablet by mouth daily 90 tablet 1 09/25/2021 Active menthol 100 mg/ml / methyl salicylate 300 mg/ml topical cream (9 sources) Start: 10-16-2024 methyl salicylate-mentho l (ICY HOT) 30-10 % cream Apply to affected area four times a day as needed (pain). 10/16/2024 Active metFORMIN hydrochloride 500 mg oral tablet (1 source) Biguanide take 1 tablet by mouth twice daily at mealtime metFORMIN (GLUCOPHAGE) 500 MG tablet Take 500 mg by mouth 2 times daily (with meals) 0 Active naproxen 500 mg oral tablet (8 sources) Nonsteroidal Anti-inflammatory Drug Start: 10-08-2022 take 500 mg by mouth twice daily Naproxen Active 500 MG PO TWICE A DAY October 08, 2022 1:00am Start: 09-07-2021 End: 09-21-2021 take 1 tablet by mouth twice daily at mealtime naproxen (NAPROSYN) 500 MG tablet Take 1 tablet by mouth 2 times daily (with meals) for 14 days 28 tablet 0 09/07/2021 09/16/2021 Discontinued (LIST CLEANUP) Start: 09-04-2021 End: 09-05-2021 naproxen (NAPROSYN) tablet 5 00 mg Start: 08-22-2021 End: 09-02-2021 take 1 tablet by mouth twice daily at mealtime naproxen (NAPROSYN) 500 MG tablet Take 1 tablet by mouth 2 times daily (with meals) for 14 days 28 tablet 1 08/22/2021 09/02/2021 Discontinued (LIST CLEANUP) Start: 07-18-2021 End: 07-25-2021 naproxen 500 mg oral tablet Dose : 500 mg = 1 tab(s), Oral, BID, X 7 day(s), # 14 tab(s), 0 Refill(s), 07/25/21 9:46:00 EST Start Date: 07/18/21 Stop Date: 07/25/21 Status: Ordered nitrofurantoin, macrocrystals 25 mg / nitrofurantoin, monohydrate 75 mg oral capsule (1 source) Nitrofuran Antibacterial Start: 09-30-2021 End: 10-07-2021 take 1 capsule by mouth twice daily nitrofurantoin, macrocrystal-monohydrate, (MACROBID) 100 MG capsule Take 1 capsule by mouth 2 times daily for 7 days 14 capsule 0 09/30/2021 10/07/2021 Active ondansetron (ZOFRAN-ODT) disintegrating tablet 4 mg (4 sources) Start: 09-09-2021 ondansetron (ZOFRAN-ODT) disintegrating tablet 4 mg Start: 02-12-2021 ondansetron (Z OFRAN-ODT) disintegrating tablet 4 mg Start: 12-30-2020 ondansetron (Z OFRAN-ODT) disintegrating tablet 4 mg Start: 12-21-2020 ondansetron (Z OFRAN-ODT) disintegrating tablet 4 mg 24 hr oxybutynin chloride 10 mg extended release oral tablet (4 sources) Cholinergic Muscarinic Antagonist Start: 02-13-2021 take 1 tablet by mouth once daily as needed for muscle spasms oxybutynin (DITROPAN XL) 10 MG extended release tablet Take 1 tablet by mouth daily as needed (bladder spasms) 30 tablet 0 02/13/2021 Active phenol 14 mg/ml mouthwash (1 source) Start: 03-08-2021 take 1 spray(s) by mouth every two hours as needed 1 spray, Mouth/Throat, EVERY 2 HOURS PRN, Sore Throat, Starting on Thu03/08/21 at 1659 Progesterone (1 source) Progesterone Progesterone Micronized (PROGESTERONE PO) Take by mouth 0 Active promethazine hydrochloride 25 mg rectal suppository (5 sources) Phenothiazine Start: 03-10-2021 End: 03-17-2021 promethazine (PROMETHEGAN) [address] 1 suppository rectally every 6 hours as needed for Nausea 10 suppository 1 03/10/2021 03/17/2021 Active Start: 12-31-2020 End: 12-31-2020 promethazine (PHENERGAN) inj ection 6.25 mg Start: 12-30-2020 End: 01-01-2021 promethazine (PHENERGAN) inj ection 12.5 mg 72 hr scopolamine 0.0139 mg/hr transdermal system (9 sources) Anticholinergic Start: 10-16-2024 scopolamine (TRANSDERM-SCOP) patch 1.5 mg/72 hr (delivers 1 mg over 3 days) Indications: Cyclic vomiting syndrome Apply 1 Patch as directed every 72 hours. 10 Patch 10/16/2024 Active sertraline 50 mg oral tablet (6 sources) Serotonin Reuptake Inhibitor Start: 09-25-2021 take 1 tablet by mouth once daily Sertraline (Zoloft) 50 mg Tablet Active 50 MG PO DAILY September 30, 2021 1:00am sodium chloride flush 0.9 % injection 3 mL (1 source) Start: 09-02-2021 sodium chloride flush 0.9 % injection 3 mL sulfamethoxazole 800 mg / trimethoprim 160 mg oral tablet (8 sources) Dihydrofolate Reductase Inhibitor Antibacterial, Sulfonamide Antimicrobial Start: 12-10-2021 take 1 tablet by mouth twice daily Sulfamethoxazole-Tri methoprim (Bactrim Ds) 800-160 mg tablet Active 1 TABLET PO TWICE A DAY December 10, 2021 12:00am Start: 09-14-2021 take 1 tablet by juan m th every twelve hours, then take 1 tablet by mouth twice daily 1 tablet, Oral, EVERY 12 HOURS SCHEDULED (2 times per day), First dose on 09/14/21 at 2100 Start: 02-13-2021 End: 02-27-2021 take 1 tablet by mouth twice daily 1 tablet, Oral, 2 TIMES DAILY, First dose on 02/23/21 at 2100 Start: 02-13-2021 End: 03-10-2021 tamsulosin hydrochloride 0.4 mg oral capsule (20 sources) alpha-Adrenergic Festus Start: 01-08-2021 End: 02-13-2021 tamsulosin 0.4 mg oral capsule Dose : 0.4 mg = 1 cap(s), Oral, qDay, # 30 cap(s), 0 Refill(s) Start Date: 01/21/21 Status: Ordered Quantity: 30.0 Unit: cap(s) Repeat number: 1 Start: 12-23-2020 End: 01-05-2021 take 1 capsule by mouth once daily tamsulosin (FLOMAX) 0.4 MG capsule Take 1 capsule by mouth daily for 7 days 7 capsule 0 12/29/2020 01/03/2021 Discontinued (Stop Taking at Discharge) traMADol (15 sources) Opioid Agonist Start: 02-13-2021 traMADol (ULTR AM) tablet 50 mg Start: 02-13-2021 End: 03-10-2021 traMADol (ULTRAM) 50 MG tabl et Indications: Hydronephrosis 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 Intended supply: 5 days. Take lowest dose possible to manage pain 30 tablet 0 02/13/2021 02/18/2021 Active Start: 10-28-2020 End: 11-04-2020 take 50 mg by mouth every six hours as needed Tramadol Discontinued 50 MG PO EVERY 6 HOURS NEEDED 20 7 October 28, 2020 1:00am November 04, 2020 1:03am trospium chloride 20 mg oral tablet (9 sources) Cholinergic Muscarinic Antagonist Start: 09-14-2021 trospium (SANCTURA) tablet 20 mg Start: 08-01-2021 End: 09-02-2021 take 1 tablet by mouth twice daily before mealtime trospium (SANCTURA) 20 MG tablet Indications: Renal colic , Complicated urinary tract infection Take 1 tablet by mouth 2 times daily (before meals) 60 tablet 3 08/01/2021 09/02/2021 Discontinued (LIST CLEANUP) Start: 03-10-2021 take 1 tablet by juan m twice daily before mealtime trospium (SANCTURA) 20 MG tablet Take 1 tablet by mouth 2 times daily (before meals) 60 tablet 3 03/10/2021 Active Start: 02-24-2021 Start: 12-23-2020 End: 01-03-2021 take 1 tablet by mouth once daily trospium (SANCTURA) 20 MG tablet Take 1 tablet by mouth daily 7 tablet 0 12/29/2020 01/03/2021 Discontinued (Stop Taking at Discharge) (13 sources) Start: 03-10-2021 End: 03-11-2021 Intravenous, at 125 mL/hr, A dminister over 16 Hours, CONTINUOUS TPN, Starting on 03/10/21 at 1800, For 16 hours 1800 - 1900 Run at 50 cc/hr X 1 hr, 1900 - 2000 Run at 75 cc/hr X 1 hr, 2000 - 0800 Run at 143 cc/hr X 12 hrs, 0800 - 0900 Run at 75 cc/hr X 1 hr, 0900 - 1000 Run at 50 cc/hr X 1 hr. Start: 03-09-2021 End: 03-10-2021 Intravenous, at 125 mL/hr, A dminister over 16 Hours, CONTINUOUS TPN, Starting on 03/09/21 at 1800, For 16 hours 1800 - 1900 Run at 50 cc/hr X 1 hr, 1900 - 2000 Run at 75 cc/hr X 1 hr, 2000 - 0800 Run at 143 cc/hr X 12 hrs, 0800 - 0900 Run at 75 cc/hr X 1 hr, 0900 - 1000 Run at 50 cc/hr X 1 hr. Start: 03-08-2021 End: 03-09-2021 Intravenous, at 125 mL/hr, A dminister over 16 Hours, CONTINUOUS TPN, Starting on Thu03/08/21 at 1800, For 16 hours NOTE: TPN changing to CYCLE starting at 6PM today, 03/06/21. TPN 16 hr CYCLE infusion rate orders are in TPN order, and as below---> 1800 - 1900 Run at 50 cc/hr X 1 hr, 1900 - 2000 Run at 75 cc/hr X 1 hr, 2000 - 0800 Run at 143 cc/hr X 12 hrs, 0800 - 0900 Run at 75 cc/hr X 1 hr, 0900 - 1000 Run at 50 cc/hr X 1 hr. Start: 03-07-2021 End: 03-08-2021 Intravenous, at 125 mL/hr, A dminister over 16 Hours, CONTINUOUS TPN, Starting on Thu03/07/21 at 1800, For 16 hours NOTE: TPN changing to CYCLE starting at 6PM today, 03/06/21. TPN 16 hr CYCLE infusion rate orders are in TPN order, and as below---> 1800 - 1900 Run at 50 cc/hr X 1 hr, 1900 - 2000 Run at 75 cc/hr X 1 hr, 2000 - 0800 Run at 143 cc/hr X 12 hrs, 0800 - 0900 Run at 75 cc/hr X 1 hr, 0900 - 1000 Run at 50 cc/hr X 1 hr. Start: 03-06-2021 End: 03-07-2021 Intravenous, at 125 mL/hr, A dminister over 16 Hours, CONTINUOUS TPN, Starting on Thu03/06/21 at 1800, For 16 hours NOTE: TPN changing to CYCLE starting at 6PM today, 03/06/21. TPN 16 hr CYCLE infusion rate orders are in TPN order, and as below---> 1800 - 1900 Run at 50 cc/hr X 1 hr, 1900 - 2000 Run at 75 cc/hr X 1 hr, 2000 - 0800 Run at 143 cc/hr X 12 hrs, 0800 - 0900 Run at 75 cc/hr X 1 hr, 0900 - 1000 Run at 50 cc/hr X 1 hr. Start: 03-05-2021 End: 03-06-2021 Intravenous, at 85 mL/hr, Ad consumer product advisor over 24 Hours, CONTINUOUS TPN, Starting on Thu03/05/21 at 1800, For 24 hours Start: 03-05-2021 End: 03-05-2021 2,000 mg, Intravenous, ONCE, 1 dose, On Thu03/05/21 at 1400 Give 1 g over 60 min; 2 g over 120 min; 3 g over 180 min; 4 g over 240 min Start: 03-04-2021 End: 03-05-2021 Intravenous, at 85 mL/hr, Ad consumer product advisor over 24 Hours, CONTINUOUS TPN, Starting on Thu03/04/21 at 1800, For 24 hours Start: 03-03-2021 250 mg, Intrav enous, EVERY 8 HOURS, First dose on 03/03/21 at 1300, Until Discontinued Start: 03-02-2021 End: 03-02-2021 Intravenous, at 150 mL/hr, C ONTINUOUS, Starting on 03/02/21 at 1245 Start: 03-01-2021 End: 03-01-2021 30 mmol, Intravenous, at 111 .1 mL/hr, Administer over 270 Minutes, ONCE, On Thu03/01/21 at 0815, For 1 dose Start: 02-28-2021 End: 02-28-2021 20 mmol, Intravenous, at 62. 5 mL/hr, Administer over 240 Minutes, ONCE, On Lena 02/28/21 at 1030, For 1 dose Start: 02-23-2021 [Order 1 Start ] Name: pantoprazole (PROTONIX) injection 40 mg Signed Summary: 40 mg, Intravenous, DAILY, First dose on [facility] 02/23/21 at 1415 Reconstitute with 10 mL 0.9 % sodium chloride and administer over at least 2 minutes. [Order 1 End] [Order 2 Start] Name: sodium chloride (PF) 0.9 % injection 10 mL Signed Summary: 10 mL, Intravenous, DAILY, First dose on [facility] 02/23/21 at 1415 Use for IV pantoprazole reconstitution. [Order 2 End] Completed/Discontinued Medications Medication Drug Class(es) Dates Sig (Normalized) Sig (Original) Acetaminophen (20 sources) Start: 03-15-2025 End: 03-15-2025 take 1 tablet by mouth every six hours as needed for pain and fever acetaminophen (Tylenol) tablet 650 mg Start: 09-22-2024 End: 09-28-2024 take 1000 mg intravenously every eight hours 1,000 mg, IntraVENous, at 400 mL/hr, Administer over 15 Minutes, Every 8 hours, First dose on Thu09/22/24 at 1400 Start: 09-20-2024 End: 09-22-2024 take 1 tablet by mouth every eight hours 1,000 mg, Oral, Every 8 hours, First dose on Thu09/20/24 at 1300, Maximum dose of acetaminophen is 4000 mg from all sources in 24 hours. Start: 09-15-2024 End: 09-16-2024 take 1 tablet by mouth every six hours as needed for pain and fever acetaminophen (Tylenol) tablet 650 mg Start: 09-05-2024 take 2 tablets by mo uth every eight hours acetaminophen (TYLENOL) 500 mg tablet Take 2 tablets by mouth every 8 hours. 09/05/2024 Active Start: 12-26-2022 take 1000 mg by mout h every eight hours as needed Acetaminophen Active 1000 MG PO EVERY 8 HOURS NEEDED 60 December 26, 2022 10:52am Start: 09-14-2021 650 mg, Oral, EVERY 4 HOURS PRN, Pain Mild (1-3), Pain Mild (1-3) or Fever greater than 100.5 F (38 C), Starting on 09/14/21 at 1141 If acetaminophen and ibuprofen are both ordered PRN for mild pain, may administer together. Start: 09-09-2021 take 1000 mg by mout h every six hours for pain 1,000 mg, Oral, EVERY 6 HOURS, First dose on 09/09/21 at 1815 If acetaminophen and ibuprofen are both ordered PRN for mild pain, may administer together. Start: 09-06-2021 acetaminophen (TYLENOL) tablet 1,000 mg Start: 07-12-2021 take 2 tablets by mo uth every four hours as needed Acetaminophen (Tylenol) 325 mg Tablet Active 650 MG PO EVERY 4 HOURS NEEDED 0 July 12, 2021 12:00am Start: 03-06-2021 650 mg, Oral, EVERY 4 HOURS SCHEDULED (6 times per day), First dose on Thu03/06/21 at 1200 Maximum dose of acetaminophen is 4000 mg from all sources in 24 hours. Start: 02-24-2021 End: 02-27-2021 take 1 dose by mouth three times daily 1,000 mg, Oral, EVERY 8 HOURS SCHEDULED (3 times per day), First dose on 02/24/21 at 1400 Maximum dose of acetaminophen is 4000 mg from all sources in 24 hours. Start: 02-12-2021 650 mg, Oral, EVERY 4 HOURS PRN, Pain Mild (1-3), Pain Mild (1-3) or Fever greater than 100.5 F (38 C), Starting on 02/12/21 at 0031 If acetaminophen and ibuprofen are both ordered PRN for mild pain, may administer together. Start: 02-11-2021 End: 02-11-2021 acetaminophen (TYLENOL) tabl et 1,000 mg Start: 01-21-2021 acetaminophen (TYLENOL) tablet 650 mg Start: 01-13-2021 take 650 mg by mouth every four hours as needed for pain, then take 4000 mg by mouth every twenty-four hours as needed for pain 650 mg, Oral, EVERY 4 HOURS PRN, Pain Mild (1-3), Fever, For Fever >100.5 F (38 C), Starting 01/13/21 at 0204 Maximum dose of acetaminophen is 4000 mg from all sources in 24 hours. Start: 12-30-2020 take 650 mg by mouth every six hours, then take 4000 mg by mouth every twenty-four hours 650 mg, Oral, EVERY 6 HOURS, First dose (after last modification) on Thu12/30/20 at 1800 Maximum dose of acetaminophen is 4000 mg from all sources in 24 hours. Start: 12-21-2020 End: 12-27-2020 acetaminophen (TYLENOL) tabl et 650 mg acetaminophen 325 mg / oxyCODONE hydrochloride 5 mg oral tablet (3 sources) Opioid Agonist Start: 09-11-2021 End: 09-18-2021 oxyCODONE-acetaminophen (PERCOCET) 5-325 MG per tablet Indications: Ureteral stricture, left Take 1 tablet by mouth every 6 hours as needed for Pain for up to 7 days. Intended supply: 3 days. Take lowest dose possible to manage pain 15 tablet 0 09/11/2021 09/16/2021 Discontinued (Therapy completed) Start: 01-22-2021 oxyCODONE-acet aminophen (PERCOCET) 5-325 MG per tablet 1 tablet ALPRAZolam 0.25 mg oral tablet (5 sources) Benzodiazepine Start: 03-15-2025 End: 03-15-2025 take 0.5 mg by mouth three times daily as needed for anxiety 0.5 mg, Oral, 3 times daily PRN, anxiety, Starting on Thu03/15/25 at 1013 Start: 09-09-2021 End: 09-09-2021 ALPRAZolam (NIRAVAM) dissolv able tablet 0.25 mg take 1 tablet by juan m th three times daily as needed for anxiety ALPRAZolam (Xanax) 0.5 MG tablet Take 0.5 mg by mouth 3 times daily as needed for anxiety. Active aluminum hydroxide 40 mg/ml / magnesium hydroxide 40 mg/ml / simethicone 4 mg/ml oral suspension (2 sources) Start: 03-15-2025 End: 03-15-2025 take 20 mL by mouth once 20 mL, Oral, Once, On Thu03/15/25 at 0450, For 1 dose amitriptyline hydrochloride 10 mg oral tablet (18 sources) Tricyclic Antidepressant Start: 10-04-2024 End: 03-15-2025 Start: 12-26-2022 End: 01-14-2023 take 10 mg by mouth at bedtime Amitriptyline Active 10 MG PO AT BEDTIME January 14, 2023 3:43pm End: 09-16-2024 take 1 tablet by mouth once daily amitriptyline (Elavil) 150 MG tablet Take 150 mg by mouth Nightly. 09/16/2024 Discontinued (Non-compliance) atropine sulfate 0.45317 mg/ml / hyoscyamine sulfate 0.0207 mg/ml / PHENobarbital 3.24 mg/ml / scopolamine hydrobromide 0.0013 mg/ml oral solution (5 sources) Anticholinergic, Cholinergic Muscarinic Antagonist Start: 09-20-2024 End: 09-21-2024 take 2.5 mL by mouth once 2.5 mL, Oral, Once, On Thu09/21/24 at 0700, For 1 dose Start: 02-28-2021 End: 03-01-2021 take 1 dose by mouth three times daily 5 mL, Oral, EVERY 8 HOURS SCHEDULED (3 times per day), First dose on [place] 02/28/21 at 1430 calcium chloride 0.0014 meq/ ml / potassium chloride 0.004 meq/ml / sodium chloride 0.103 meq/ml / sodium lactate 0.028 meq/ml injectable solution (4 sources) Start: 02-27-2021 End: 02-27-2021 2,000 mL, Intravenous, at 1, 000 mL/hr, Administer over 2 Hours, ONCE, On Thu02/27/21 at 1215, For 1 dose Start: 02-23-2021 End: 02-27-2021 Intravenous, at 125 mL/hr, C ONTINUOUS, Starting on Thu02/25/21 at 0645 Start: 12-21-2020 End: 12-24-2020 lactated ringers infusion cefdinir 300 mg oral capsule (4 sources) Cephalosporin Antibacterial Start: 09-03-2021 End: 09-13-2021 take 1 capsule by mouth twice daily cefdinir (OMNICEF) 300 MG capsule Take 1 capsule by mouth 2 times daily for 10 days 20 capsule 0 09/03/2021 09/07/2021 Discontinued (Stop Taking at Discharge) cefTRIAXone sodium 1,000 mg in dextrose 5 % 50 mL IVPB (add-vantage) (3 sources) Start: 09-03-2021 End: 09-03-2021 cefTRIAXone sodium 1,000 mg in dextrose 5 % 50 mL IVPB (add-vantage) Start: 02-12-2021 1,000 mg, Intr avenous, EVERY 24 HOURS, First dose on Thu02/12/21 at 0100, Until Discontinued Start: 12-22-2020 End: 12-24-2020 cefTRIAXone sodium 1,000 mg in dextrose 5 % 50 mL IVPB (add-vantage) ciprofloxacin 500 mg oral tablet (20 sources) Quinolone Antimicrobial Start: 12-12-2022 End: 12-26-2022 take 1 tablet by mouth twice daily Ciprofloxacin Hcl (Cipro) 500 mg tablet Discontinued 500 MG PO TWICE A DAY December 12, 2022 12:00am December 26, 2022 10:50am Start: 05-21-2021 End: 07-12-2021 take 1 tablet by mouth every twelve hours Ciprofloxacin Hcl (Cipro) 500 mg tablet Discontinued 500 MG PO Q12H May 21, 2021 12:00am July 12, 2021 10:00am Start: 01-09-2021 End: 01-10-2021 take 500 mg by mouth twice daily Ciprofloxacin Hcl Discontinued 500 MG PO TWICE A DAY January 09, 2021 12:00am January 10, 2021 9:23am Start: 01-03-2021 End: 01-07-2021 take 1.5 tablets by mouth twice daily ciprofloxacin (CIPRO) 500 MG tablet Take 1.5 tablets by mouth 2 times daily for 4 days 12 tablet 0 01/03/2021 01/07/2021 Active Start: 01-02-2021 ciprofloxacin (CIPRO) tablet 750 mg Start: 01-01-2021 End: 01-02-2021 ciprofloxacin (CIPRO) IVPB 4 00 mg Start: 12-25-2020 End: 12-26-2020 ciprofloxacin (CIPRO) tablet 500 mg cloNIDine hydrochloride 0.2 mg oral tablet (1 source) Central alpha-2 Adrenergic Agonist Start: 09-15-2021 End: 09-15-2021 cloNIDine (CATAPRES) tablet 0.1 mg Start: 09-15-2021 End: 09-15-2021 cloNIDine (CATAPRES) tablet 0.1 mg cyclobenzaprine hydrochloride 10 mg oral tablet (2 sources) Muscle Relaxant Start: 09-23-2024 End: 09-28-2024 take 5 mg by mouth three times daily 5 mg, Oral, 3 times daily, First dose on Thu09/23/24 at 1000 1 ml dexamethasone phosphate 4 mg/ml injection (1 source) Corticosteroid Start: 01-22-2021 End: 01-22-2021 6 mg, Intravenous, EVERY MORNING, First dose on Thu01/22/21 at 0900 diatrizoate meglumine-sodium (GASTROGRAFIN) 66-10 % solution 30 mL (3 sources) Start: 12-30-2020 End: 01-03-2021 diatrizoate meglumine-sodium (GASTROGRAFIN) 66-10 % solution 30 mL Start: 12-26-2020 End: 12-26-2020 diatrizoate meglumine-sodium (GASTROGRAFIN) 66-10 % solution 30 mL Start: 12-21-2020 End: 12-26-2020 diatrizoate meglumine-sodium (GASTROGRAFIN) 66-10 % solution 30 mL dicyclomine hydrochloride 10 mg oral capsule (20 sources) Anticholinergic Start: 03-10-2025 End: 03-17-2025 take 1 tablet by mouth four times daily Bentyl use dicyclomine Dose : 20 mg =, Oral, QID, # 20 tab(s), 0 Refill(s) Start Date: 03/10/25 Stop Date: 03/17/25 Status: Ordered Quantity: 20.0 Unit: tab(s) Repeat number: 1 Start: 12-18-2024 End: 12-18-2024 inject 20 mg by intramuscular injection once 20 mg, IntraMUSCular, Once, On 12/18/24 at 0735, For 1 dose Start: 10-16-2024 End: 03-15-2025 Start: 09-17-2024 End: 09-17-2024 take 10 mg by mouth once 10 mg, Oral, Once, On Sat 08/01 at 1720, For 1 dose Start: 07-19-2024 End: 07-22-2024 dicyclomine 20 mg oral table t Dose : 20 mg = 1 tab(s), Oral, QID, PRN As needed for abdominal discomfort, # 12 tab(s), 0 Refill(s) Start Date: 07/19/24 Stop Date: 07/22/24 Status: Ordered Quantity: 12.0 Unit: tab(s) Repeat number: 1 docusate sodium 50 mg / sennosides, shelter 8.6 mg oral tablet (16 sources) Start: 09-05-2024 End: 02-15-2025 take 1 tablet by mouth twice daily senna-docusate (SENNA-S) 8.6-50 mg per tablet Take 1 tablet by mouth two times a day. 09/05/2024 02/15/2025 Discontinued Start: 07-21-2021 take 1 tablet by juan m at bedtime Sennosides-Docusate Sodium (Senna-S) 8.6-50 mg tablet Active 1 TAB-CAP PO AT BEDTIME July 21, 2021 1:00am Start: 03-03-2021 take 2 tablets by mo [facility] twice daily 2 tablet, Oral, 2 TIMES DAILY, First dose (after last modification) on Thu03/03/21 at 0900 Start: 02-24-2021 End: 03-03-2021 take 2 tablets by mouth once daily 2 tablet, Oral, DAILY, First dose on Thu02/24/21 at 1130 doxycycline monohydrate 100 mg oral capsule (12 sources) Tetracycline-class Drug Start: 10-28-2020 End: 11-07-2020 take 100 mg by mouth twice daily Doxycycline Monohydrate Discontinued 100 MG PO TWICE A DAY 26 06October 28, 2020 1:00am November 07, 2020 1:03am 0.4 ml enoxaparin sodium 100 mg/ml prefilled syringe (6 sources) Low Molecular Weight Heparin Start: 09-14-2021 End: 09-16-2021 inject 40 mg by subcutaneous injection once daily 40 mg, SubCUTAneous, DAILY, First dose on Thu09/14/21 at 1300 Start: 09-10-2021 inject 40 mg by subc utaneous injection once daily 40 mg, SubCUTAneous, DAILY, First dose on Thu09/10/21 at 0900 Start: 09-04-2021 inject 40 mg by subc utaneous injection once daily 40 mg, SubCUTAneous, DAILY, First dose on Thu09/04/21 at 0900 Start: 02-12-2021 inject 40 mg by subc utaneous injection once daily 40 mg, Subcutaneous, DAILY, First dose on Thu02/12/21 at 0900 Start: 01-22-2021 inject 40 mg by subc utaneous injection once daily 40 mg, Subcutaneous, DAILY, First dose on Thu01/22/21 at 0900 Start: 01-13-2021 inject 40 mg by subc utaneous injection once daily 40 mg, Subcutaneous, DAILY, First dose on Thu01/13/21 at 0900 ergocalciferol 1.25 mg oral capsule (6 sources) Provitamin D2 Compound Start: 09-05-2024 End: 02-15-2025 ergocalciferol 50,000 unit capsule (VITAMIN D2, DRISDOL) Take 1 capsule one time a week for 8 doses. 8 capsule 09/05/2024 02/15/2025 Discontinued ertapenem (INVanz) 1000 mg IVPB minibag (3 sources) Start: 12-31-2020 End: 01-01-2021 ertapenem (INVanz) 1000 mg IVPB minibag Start: 12-26-2020 ertapenem (INV anz) 1000 mg IVPB minibag Start: 12-24-2020 End: 12-25-2020 ertapenem (INVanz) 1000 mg I VPB minibag 2 ml famotidine 10 mg/ml injection (10 sources) Histamine-2 Receptor Antagonist Start: 09-09-2021 End: 09-09-2021 famotidine (PEPCID) injection 20 mg Start: 07-12-2021 take 20 mg by mouth twice lee y Famotidine Active 20 MG PO TWICE A DAY 60 July 12, 2021 12:00am Start: 01-13-2021 End: 01-14-2021 famotidine (PEPCID) tablet 2 0 mg Start: 01-01-2021 famotidine (PE PCID) tablet 20 mg Start: 12-31-2020 End: 12-31-2020 famotidine (PEPCID) injectio n 20 mg famotidine (Pepcid) 20 mg in sodium chloride (PF) 0.9 % 10 mL injection (2 sources) Start: 03-15-2025 End: 03-15-2025 20 mg, IntraVENous, Administer over 2 Minutes, Once, On Thu03/15/25 at 0450, For 1 dose, IV Push over minimum of 2 minutes - Dilute with 10 mL NS 1 ml fentaNYL 0.05 mg/ml injection (6 sources) Opioid Agonist Start: 01-02-2025 End: 01-02-2025 50 mcg, INTRAVENOUS, EVERY 10 MINUTES NEEDED, 2 doses, Starting on Thu01/02/25 at 1315, Until Thu01/02/25 at 1453, SECOND LINE THERAPY for pain score 1 or greater, USE FOR MILD PAIN (1-3) ONLY IF PATIENT IS UNABLE TO TOLERATE ORAL THERAPY, Recovery or Phase I (only) Start: 03-08-2021 End: 03-08-2021 ONCE PRN, Starting on 10/28 at 1551, For 1 dose Start: 12-22-2020 End: 12-22-2020 fentaNYL (SUBLIMAZE) injecti on ferrous gluconate 324 mg oral tablet (3 sources) End: 12-30-2020 take 1 tablet by mouth once daily at breakfast ferrous gluconate (FERGON) 324 (38 Fe) MG tablet Take 324 mg by mouth daily (with breakfast) 0 12/30/2020 Discontinued (DISCONTINUED BY ANOTHER CLINICIAN) 4 ml furosemide 10 mg/ml injection (1 source) Loop Diuretic Start: 01-23-2021 End: 01-23-2021 furosemide (LASIX) injection 40 mg Start: 01-23-2021 End: 01-23-2021 furosemide (LASIX) injection 40 mg gabapentin 300 mg oral capsu le (20 sources) Anti-epileptic Agent Start: 03-15-2025 End: 03-15-2025 Start: 10-16-2024 End: 11-15-2024 gabapentin 600 mg oral table t Dose : 600 mg = 1 tab(s), Oral, TID, 105.1 Start Date: 03/10/25 Status: Ordered Repeat number: 1 Start: 09-20-2024 End: 09-28-2024 take 200 mg by mouth three times daily 200 mg, Oral, 3 times daily, First dose on Thu09/20/24 at 1400 Start: 12-26-2022 End: 01-14-2023 take 100 mg by mouth three times daily Gabapentin Active 100 MG PO THREE TIMES A DAY June 01, 2023 12:00am End: 03-15-2025 take 2 capsules by mouth three times daily gabapentin (Neurontin) 100 MG capsule Take 200 mg by mouth 3 times daily. 03/15/2025 Discontinued (Therapy completed) 1000 ml glucose 50 mg/ml / potassium chloride 0.04 meq/ml / sodium chloride 4.5 mg/ml injection (7 sources) Start: 09-21-2024 End: 09-23-2024 take 125 mL intravenously every hour 125 mL/hr, IntraVENous, Continuous, Starting on Lena 09/22/24 at 1145, For 12 hours Start: 03-02-2021 End: 03-04-2021 Intravenous, at 150 mL/hr, C ONTINUOUS, Starting on 03/02/21 at 2100, For 1 day 20 hours 250 ml glucose 50 mg/ml / sodium chloride 4.5 mg/ml injection (3 sources) Start: 09-20-2024 End: 09-20-2024 take 100 mL intravenously every hour 100 mL/hr, IntraVENous, Continuous, Starting on Thu09/20/24 at 1300, For 10 hours Start: 02-27-2021 End: 03-02-2021 Intravenous, at 150 mL/hr, C ONTINUOUS, Starting on Thu02/27/21 at 1215 1 ml haloperidol 5 mg/ml prefilled syringe (20 sources) Typical Antipsychotic Start: 03-15-2025 End: 03-15-2025 2 mg, IntraMUSCular, Once, On Thu03/15/25 at 0450, For 1 dose, IM route of administration preferred. Because of the risk of TdP and QT prolongation, ECG monitoring is recommended if haloperidol is given IV Start: 12-18-2024 End: 12-18-2024 2 mg, IntraVENous, Once, On Thu12/18/24 at 0735, For 1 dose, IM route of administration preferred. Because of the risk of TdP and QT prolongation, ECG monitoring is recommended if haloperidol is given IV Start: 10-16-2024 End: 11-22-2024 take 1 tablet by mouth three times daily as needed for nausea, then take 1 tablet by mouth every eight hours as needed for nausea haloperidol (HALDOL) 0.5 mg tablet Indications: Cyclic vomiting syndrome , Chronic abdominal pain Take 1 tablet by mouth three times a day for 7 days, THEN 1 tablet every 8 hours as needed (nausea). 60 tablet 10/16/2024 11/22/2024 Active Start: 09-30-2021 End: 02-15-2025 haloperidol (HALDOL) 2 mg ta blet Take 2 mg by mouth. 09/30/2021 02/15/2025 Discontinued Start: 09-05-2021 End: 09-05-2021 haloperidol lactate (HALDOL) injection 2 mg Start: 09-04-2021 End: 09-04-2021 haloperidol lactate (HALDOL) injection 2 mg Start: 09-04-2021 End: 09-04-2021 haloperidol lactate (HALDOL) injection 2.5 mg Start: 09-03-2021 End: 09-03-2021 haloperidol lactate (HALDOL) injection 2 mg Start: 03-03-2021 End: 03-03-2021 take 0.5 mg by mouth once 0.5 mg, Oral, ONCE, On Sun at 1115, For 1 dose Start: 03-03-2021 End: 03-05-2021 take 0.5 mg intravenously every eight hours 0.5 mg, Intravenous, EVERY 8 HOURS SCHEDULED (3 times per day), First dose (after last reorder) on 03/03/21 at 0915 IM route of administration preferred. Because of the risk of TdP and QT prolongation, ECG monitoring is recommended if haloperidol is given IV. Start: 02-27-2021 End: 03-03-2021 inject 1 mg by intramuscular injection every six hours as needed for nausea 1 mg, Intramuscular, EVERY 6 HOURS PRN, 2nd line for nausea, Starting on Lena 02/28/21 at 1606 IM route of administration preferred. Because of the risk of TdP and QT prolongation, ECG monitoring is recommended if haloperidol is given IV. Start: 02-25-2021 End: 02-26-2021 inject 1 mg by intramuscular injection once 1 mg, Intramuscular, ONCE, On 02/26/21 at 1945, For 1 dose IM route of administration preferred. Because of the risk of TdP and QT prolongation, ECG monitoring is recommended if haloperidol is given IV. Start: 02-23-2021 End: 02-23-2021 take 2 mg intravenously once 2 mg, Intravenous, ONCE, On 02/23/21 at 1245, For 1 dose IM route of administration preferred. Because of the risk of TdP and QT prolongation, ECG monitoring is recommended if haloperidol is given IV. 1 ml HYDROmorphone hydrochloride 1 mg/ml cartridge (20 sources) Opioid Agonist Start: 09-15-2024 End: 09-15-2024 take 1 dose by mouth every hour 1 mg, IntraVENous, Once, On Lena 09/15/24 at 1545, For 1 dose, If oral and IV narcotics ordered, use oral first and only use IV if oral is ineffective or cannot take oral. Do Not give oral and IV within 1 hour of each other unless specifically ordered. Start: 09-15-2021 End: 09-15-2021 HYDROmorphone (DILAUDID) inj ection 0.5 mg Start: 09-09-2021 End: 09-09-2021 HYDROmorphone (DILAUDID) inj ection 0.5 mg Start: 09-09-2021 End: 09-10-2021 HYDROmorphone (DILAUDID) inj ection 0.5 mg Start: 09-05-2021 End: 09-05-2021 HYDROmorphone (DILAUDID) inj ection 0.5 mg Start: 09-05-2021 End: 09-06-2021 HYDROmorphone (DILAUDID) inj ection 0.5 mg Start: 09-03-2021 End: 09-03-2021 HYDROmorphone (DILAUDID) inj ection 1 mg Start: 03-07-2021 take 0.5 mg by mouth every four hours as needed for pain 0.5 mg, Intravenous, EVERY 4 HOURS PRN, Pain Severe (7-10), break through pain only, Starting on Lena 03/07/21 at 1115 If oral and IV narcotics ordered, use oral first and only use IV if oral is ineffective or cannot take oral. Do Not give oral and IV within 1 hour of each other unless specifically ordered. Start: 02-27-2021 End: 03-07-2021 take 0.25 mg by mouth every four hours as needed for pain 0.25 mg, Intravenous, EVERY 4 HOURS PRN, Pain Severe (7-10), break through pain only, Starting on Thu03/06/21 at 1417 If oral and IV narcotics ordered, use oral first and only use IV if oral is ineffective or cannot take oral. Do Not give oral and IV within 1 hour of each other unless specifically ordered. Start: 02-23-2021 End: 02-27-2021 take 0.5 mg by mouth every four hours as needed for pain 0.5 mg, Intravenous, EVERY 4 HOURS PRN, break through pain only, Starting on 02/24/21 at 1057 If oral and IV narcotics ordered, use oral first and only use IV if oral is ineffective or cannot take oral. Do Not give oral and IV within 1 hour of each other unless specifically ordered. Start: 02-23-2021 End: 02-23-2021 take 1 mg by mouth once 1 mg, Intravenous, ONCE, On 02/23/21 at 1230, For 1 dose If oral and IV narcotics ordered, use oral first and only use IV if oral is ineffective or cannot take oral. Do Not give oral and IV within 1 hour of each other unless specifically ordered. Start: 02-12-2021 HYDROmorphone (DILAUDID) injection 0.5 mg Start: 02-11-2021 End: 02-11-2021 HYDROmorphone (DILAUDID) inj ection 1 mg Start: 01-13-2021 End: 01-13-2021 take 1 mg by mouth once as needed for pain 1 mg, Intravenous, ONCE PRN, Pain Severe (7-10), Starting 01/13/21 at 0208, For 1 dose If oral and IV narcotics ordered, use oral first and only use IV if oral is ineffective or cannot take oral. Do Not give oral and IV within 1 hour of each other unless specifically ordered. Start: 12-30-2020 End: 12-30-2020 HYDROmorphone (DILAUDID) inj ection 0.5 mg Start: 12-30-2020 End: 12-30-2020 HYDROmorphone (DILAUDID) inj ection 0.5 mg Start: 12-21-2020 End: 12-21-2020 HYDROmorphone (DILAUDID) inj ection 0.5 mg hydrOXYzine pamoate 25 mg oral capsule (15 sources) Antihistamine Start: 05-28-2021 End: 07-12-2021 take 1 capsule by mouth every six hours Hydroxyzine Pamoate (Vistaril) 25 mg capsule Discontinued 25 MG PO EVERY 6 HOURS May 28, 2021 3:01am July 12, 2021 9:59am Start: 03-03-2021 End: 03-05-2021 take 25 mg by mouth three times daily as needed for anxiety 25 mg, Oral, 3 TIMES DAILY PRN, Anxiety, Starting on 03/03/21 at 1047 Start: 01-22-2021 hydrOXYzine (A TARAX) tablet 10 mg Start: 12-26-2020 End: 12-26-2020 hydrOXYzine (VISTARIL) capsu le 25 mg hyoscyamine sulfate 0.125 mg sublingual tablet (12 sources) Start: 03-15-2025 End: 03-15-2025 take 1 tablet by juan m th three times daily hyoscyamine (Levsin) 0.125 MG SL tablet Take 0.125 mg by mouth 3 times daily. Active HYOSCYAMINE ORAL Take by mouth. Active iopamidol (ISOVUE-300) 61 % injection 50 mL (3 sources) Start: 02-12-2021 End: 02-12-2021 iopamidol (ISOVUE-300) 61 % injection 50 mL Start: 12-26-2020 End: 12-26-2020 iopamidol (ISOVUE-300) 61 % injection 50 mL Start: 12-22-2020 End: 12-22-2020 iopamidol (ISOVUE-300) 61 % injection 50 mL iopamidol (Isovue-370) 76 % injection 75 mL (2 sources) Start: 09-15-2024 End: 09-15-2024 take 75 mL intravenously once as needed 75 mL, IntraVENous, IMG once PRN, contrast, Starting on Lena 09/15/24 at 1254, For 1 dose ketamine 24.5 mg in sodium chloride 0.9 % 50 mL ivpb (2 sources) Start: 03-15-2025 End: 03-15-2025 24.5 mg (rounded from 24.375 mg = 0.25 mg/kg 97.5 kg), IntraVENous, at 157.4 mL/hr, Administer over 20 Minutes, Once, On Thu03/15/25 at 0300, For 1 dose 1 ml ketorolac tromethamine 30 mg/ml cartridge (20 sources) Nonsteroidal Anti-inflammatory Drug, Cyclooxygenase Inhibitor Start: 03-15-2025 End: 03-15-2025 take 30 mg intravenously every six hours as needed for pain and pain 30 mg, IntraVENous, Every 6 hours PRN, severe pain (7-10), moderate pain (4-6), Starting on Thu03/15/25 at 1131, For 1 day Start: 03-15-2025 End: 03-15-2025 30 mg, IntraVENous, Once, On Thu03/15/25 at 0355, For 1 dose Start: 12-18-2024 End: 12-18-2024 15 mg, IntraVENous, Once, On Thu12/18/24 at 0735, For 1 dose Start: 09-24-2024 End: 09-25-2024 15 mg, IntraVENous, Every 6 hours scheduled (4 times per day), First dose (after last modification) on 09/24/24 at 1200, For 6 doses Start: 09-23-2024 End: 09-24-2024 15 mg, IntraVENous, Every 8 hours scheduled (3 times per day), First dose on Thu09/23/24 at 1045, For 9 doses Start: 09-18-2024 End: 09-20-2024 take 30 mg intravenously every six hours as needed for pain and pain 30 mg, IntraVENous, Every 6 hours PRN, moderate pain (4-6), severe pain (7-10), Starting on 09/18/24 at 1126, For 5 days Start: 09-17-2024 End: 09-18-2024 take 15 mg intravenously every six hours as needed for pain 15 mg, IntraVENous, Every 6 hours PRN, severe pain (7-10), Starting on 09/17/24 at 2041, For 3 doses Start: 09-15-2024 End: 09-16-2024 take 15 mg intravenously every six hours as needed for pain 15 mg, IntraVENous, Every 6 hours PRN, moderate pain (4-6), Starting on Lena 09/15/24 at 1619, For 5 days Start: 09-05-2021 End: 09-08-2021 ketorolac (TORADOL) injectio n 30 mg Start: 09-04-2021 End: 09-04-2021 ketorolac (TORADOL) injectio n 15 mg Start: 09-03-2021 End: 09-03-2021 ketorolac (TORADOL) injectio n 30 mg Start: 09-02-2021 End: 09-02-2021 ketorolac (TORADOL) injectio n 15 mg Start: 02-23-2021 End: 02-28-2021 30 mg, Intravenous, EVERY 6 HOURS PRN, Pain Moderate (4-6), Starting on 02/23/21 at 1356, For 5 days Do not administer for more than 5 days. Start: 02-13-2021 End: 02-13-2022 Start: 02-12-2021 End: 02-16-2021 ketorolac (TORADOL) injectio n 30 mg Start: 02-11-2021 ketorolac (TOR ADOL) injection 15 mg Start: 01-22-2021 End: 01-27-2021 ketorolac (TORADOL) injectio n 30 mg Start: 01-14-2021 End: 01-14-2021 ketorolac (TORADOL) injectio n 30 mg Start: 01-14-2021 End: 01-13-2021 ketorolac (TORADOL) injectio n 30 mg Start: 01-13-2021 End: 01-13-2021 ketorolac (TORADOL) injectio n 30 mg Start: 12-31-2020 End: 12-31-2020 ketorolac (TORADOL) injectio n 30 mg lactulose 667 mg/ml oral solution (1 source) Osmotic Laxative Start: 02-24-2021 End: 02-24-2021 20 g, Oral, ONCE, On 02/24/21 at 1600, For 1 dose levoFLOXacin 750 mg oral tablet (12 sources) Quinolone Antimicrobial Start: 07-12-2021 End: 07-16-2021 take 750 mg by mouth once daily Levofloxacin Discontinued 750 MG PO DAILY July 12, 2021 12:00am July 16, 2021 11:42am 100 ml magnesium sulfate 40 mg/ml injection (3 sources) Start: 09-21-2024 End: 09-21-2024 4,000 mg, IntraVENous, at 25 mL/hr, Administer over 4 Hours, Once, On Thu09/21/24 at 0700, For 1 dose, Recommended infusion rate not to exceed 1,000 mg (milligrams) per hour. Start: 02-27-2021 End: 02-27-2021 4,000 mg, Intravenous, at 25 mL/hr, Administer over 4 Hours, ONCE, On Thu02/27/21 at 1230, For 1 dose Recommended infusion rate not to exceed 1,000 mg (milligrams) per hour. meropenem (1 source) Penem Antibacterial Start: 09-04-2021 End: 09-04-2021 meropenem (MERREM) 1000 mg IVPB extended (mini-bag) methocarbamol 500 mg oral tablet (13 sources) Muscle Relaxant Start: 03-15-2025 End: 03-15-2025 Start: 10-16-2024 End: 11-22-2024 take 1 tablet by mouth four times daily as needed for pain, then take 1 tablet by mouth four times daily as needed for pain methocarbamol (ROBAXIN) 500 mg tablet Indications: Generalized abdominal pain Take 1 tablet by mouth four times daily for 7 days, THEN 1 tablet four times a day as needed (pain). 90 tablet 10/16/2024 11/22/2024 Active take 1 tablet by juan m every eight hours methocarbamol (Robaxin) 500 MG tablet Take 500 mg by mouth every 8 hours. Active 2 ml metoclopramide 5 mg/ml prefilled syringe (20 sources) Dopamine-2 Receptor Antagonist Start: 03-15-2025 End: 03-15-2025 take 10 mg intravenously every six hours as needed for nausea and vomiting Start: 09-16-2024 End: 09-16-2024 take 10 mg intravenously every six hours 10 mg, IntraVENous, Every 6 hours, First dose on Thu09/16/24 at 0830 Start: 09-15-2024 End: 09-15-2024 10 mg, IntraVENous, Once, On Lena 09/15/24 at 1545, For 1 dose Start: 07-19-2024 End: 07-22-2024 Reglan 5 mg oral tablet Dose : 5 mg = 1 tab(s), Oral, QID, PRN As needed for nausea and vomiting, X 3 day(s), # 12 tab(s), 0 Refill(s), 07/22/24 7:52:00 AM EST Start Date: 07/19/24 Stop Date: 07/22/24 Status: Ordered Start: 12-26-2022 End: 01-14-2023 take 10 mg by mouth three times daily Metoclopramide Hcl Active 10 MG PO THREE TIMES A DAY 999June 01, 2023 12:00am Start: 12-22-2022 End: 09-16-2024 take 1 tablet by mouth every six hours metoclopramide (Reglan) 10 MG tablet Take 1 tablet (10 mg) by mouth every 6 hours for 7 days. 28 tablet 09/09/2024 09/16/2024 Discontinued (Non-compliance) Start: 03-02-2021 End: 03-05-2021 10 mg, Intravenous, EVERY 6 HOURS, First dose on 03/02/21 at 1245 Start: 12-25-2020 End: 03-10-2021 take 10 mg by mouth four times daily as needed for nausea 10 mg, Oral, 4 TIMES DAILY PRN, nausea 2nd line, Starting on Thu02/12/21 at 0031 1 ml midazolam 5 mg/ml cartridge (5 sources) Benzodiazepine Start: 03-08-2021 End: 03-08-2021 ONCE PRN, Starting on Thu03/08/21 at 1552, For 1 dose Start: 12-22-2020 End: 12-22-2020 midazolam (VERSED) injection mirtazapine 15 mg oral table t (20 sources) Start: 03-15-2025 End: 03-15-2025 Start: 03-15-2025 End: 03-15-2025 Start: 03-10-2025 mirtazapine 15 mg oral tablet, disintegrating Dose : 15 mg = 1 tab(s), Oral, qHS Start Date: 03/10/25 Status: Ordered Repeat number: 1 Start: 10-16-2024 take 1 tablet by juan m th once daily at bedtime mirtazapine orally disintegrating (REMERON SOLTAB) 30 mg disintegrating tablet Indications: Moderate episode of recurrent major depressive disorder (HCC) Take 1 tablet by mouth daily at bedtime. 30 tablet 10/16/2024 Active Start: 09-20-2024 End: 10-28-2024 take 1 tablet by mouth once daily mirtazapine (Remeron) 15 MG tablet Take 1 tablet (15 mg) by mouth Nightly. 30 tablet 09/28/2024 Active Start: 09-17-2024 End: 09-20-2024 take 7.5 mg by mouth once daily 7.5 mg, Oral, Nightly, First dose on 09/17/24 at 2230 Start: 09-16-2024 End: 10-16-2024 take 1 tablet by mouth once daily mirtazapine (Remeron) 7.5 MG tablet Take 1 tablet (7.5 mg) by mouth Nightly. 30 tablet 09/16/2024 5:13 PM EST 09/16/2024 09/28/2024 Discontinued (Stop taking at discharge) Start: 10-14-2021 Mirtazapine Ac tive MG October 14, 2021 1:00am Start: 03-22-2021 take 1 tablet by juan m th once daily mirtazapine (REMERON KRISTYN-TAB) 15 MG disintegrating tablet Take 1 tablet by mouth nightly 90 tablet 5 03/22/2021 Active Start: 03-03-2021 take 1 tablet by juan m th once daily mirtazapine (REMERON KRISTYN-TAB) 15 MG disintegrating tablet Take 1 tablet by mouth nightly 30 tablet 3 03/10/2021 Active Start: 01-24-2021 End: 03-10-2021 take 15 mg by mouth once daily 15 mg, Oral, NIGHTLY, F irst dose on 02/23/21 at 2100 1 ml morphine sulfate 4 mg/ml cartridge (11 sources) Opioid Agonist Start: 09-18-2024 End: 09-20-2024 take 2 mg intravenously every four hours as needed for pain and pain 2 mg, IntraVENous, Every 4 hours PRN, moderate pain (4-6), severe pain (7-10), Starting on 09/18/24 at 1736, If oral and IV narcotics ordered, use oral first and only use IV if oral is ineffective or cannot take oral. Do Not give oral and IV within 1 hour of each other unless specifically ordered. Start: 09-17-2024 End: 09-17-2024 take 1 dose by mouth every hour 4 mg, IntraVENous, Onc e, On 09/17/24 at 2000, For 1 dose, If oral and IV narcotics ordered, use oral first and only use IV if oral is ineffective or cannot take oral. Do Not give oral and IV within 1 hour of each other unless specifically ordered. Start: 09-15-2024 End: 09-16-2024 take 4 mg intravenously every four hours as needed for pain 4 mg, IntraVENous, Every 4 hours PRN, severe pain (7-10), Starting on Lena 09/15/24 at 1620, If oral and IV narcotics ordered, use oral first and only use IV if oral is ineffective or cannot take oral. Do Not give oral and IV within 1 hour of each other unless specifically ordered. Start: 09-14-2021 End: 09-17-2021 take 2 mg by mouth every four hours as needed for pain 2 mg, IntraVENous, EVERY 4 HOURS PRN, Breakthrough pain, Starting on 09/14/21 at 1143 If oral and IV narcotics ordered, use oral first and only use IV if oral is ineffective or cannot take oral. Do Not give oral and IV within 1 hour of each other unless specifically ordered. Start: 09-09-2021 End: 09-10-2021 take 2 mg by mouth every two hours as needed for pain 2 mg, IntraVENous, EVERY 2 HOURS PRN, breakthrough pain, Starting on 09/09/21 at 1746 If oral and IV narcotics ordered, use oral first and only use IV if oral is ineffective or cannot take oral. Do Not give oral and IV within 1 hour of each other unless specifically ordered. Start: 09-04-2021 End: 09-05-2021 morphine injection 2 mg Start: 09-04-2021 End: 09-04-2021 morphine injection 2 mg Start: 09-02-2021 End: 09-02-2021 morphine sulfate (PF) inject ion 4 mg Multiple Vitamins-Minerals (THERAPEUTIC MULTIVITAMIN-MINERALS) tablet (2 sources) End: 01-03-2021 take 1 tablet by mouth once daily Multiple Vitamins-Minerals (THERAPEUTIC MULTIVITAMIN-MINERALS) tablet Take 1 tablet by mouth daily 0 01/03/2021 Discontinued (Stop Taking at Discharge) take 1 tablet by mouth once lee y Multiple Vitamins-Minerals (THERAPEUTIC MULTIVITAMIN-MINERALS) tablet Take 1 tablet by mouth daily 0 Active 1 ml naloxone hydrochloride 0.4 mg/ml injection (4 sources) Opioid Antagonist Start: 09-18-2024 End: 09-28-2024 0.4 mg, IntraVENous, Every 5 min PRN, opioid reversal, respiratory depression, Starting on Thu09/18/24 at 1740, +++ For RR Start: 09-16-2024 End: 09-16-2024 0.4 mg, IntraVENous, Every 5 min PRN, opioid reversal, respiratory depression, Starting on Thu09/16/24 at 0824, +++ For RR norethindrone acetate 5 mg o ral tablet (20 sources) Start: 11-15-2018 End: 11-16-2018 Norethindrone Acetate (Aygestin) 5 MG tablet Discontinued 10 MG PO DAILY November 15, 2018 5:52pm November 16, 2018 5:36pm Start: 08-05-2016 End: 11-15-2018 take 1 tablet by mouth every two hours, then take 1 tablet by mouth three times daily Norethindrone Acetate (Aygestin) 5 MG tablet Discontinued 5 MG PO THREE TIMES A DAY August 05, 2016 1:00am November 15, 2018 5:52pm 5 mg every 2 hours for 6 doses, then 5 mg three times a day Dispense: 40 tablets take 1 tablet by juan m th once daily norethindrone (AYGESTIN) 5 MG tablet Take 5 mg by mouth daily 0 Active OLANZapine 5 mg oral tablet (20 sources) Atypical Antipsychotic Start: 09-22-2024 End: 09-28-2024 take 5 mg by mouth once daily 5 mg, Oral, Daily, First dose on 09/24/24 at 0600, For 6 doses Start: 10-14-2021 End: 03-15-2025 OLANZapine (ZYPREXA) 5 mg ta blet Take 5 mg by mouth. 10/14/2021 Active Start: 10-14-2021 Olanzapine Act elliott MG October 14, 2021 1:00am Start: 09-14-2021 take 5 mg by mouth once daily 5 mg, Oral, NIGHTLY, First dose on 09/14/21 at 2100 Start: 09-04-2021 take 1 tablet by juan m th once daily OLANZapine (ZYPREXA) 5 MG tablet Take 1 tablet by mouth nightly 30 tablet 1 09/07/2021 Active Start: 03-05-2021 take 5 mg by mouth once daily 5 mg, Oral, NIGHTLY, First dose on Thu03/05/21 at 2100 2 ml ondansetron 2 mg/ml injection (20 sources) Serotonin-3 Receptor Antagonist Start: 03-15-2025 End: 03-15-2025 4 mg, IntraVENous, Once, On Thu03/15/25 at 0140, For 1 dose Start: 03-11-2025 End: 03-18-2025 ondansetron 4 mg oral tablet , disintegrating Dose : 4 mg = 1 tab(s), Oral, q6h, PRN Nausea/Vomiting, # 10 tab(s), 0 Refill(s), 03/18/25 5:31:00 AM EDT Start Date: 03/11/25 Stop Date: 03/18/25 Status: Ordered Quantity: 10.0 Unit: tab(s) Repeat number: 1 Start: 12-18-2024 End: 12-18-2024 4 mg, IntraVENous, Once, On 12/18/24 at 0945, For 1 dose Start: 10-16-2024 End: 11-22-2024 take 1 tablet by mouth at bedtime as needed for nausea, then take 1 tablet by mouth every eight hours as needed for nausea ondansetron orally disintegrating (ZOFRAN ODT) 4 mg disintegrating tablet Indications: Cyclic vomiting syndrome , Psychogenic vomiting with nausea Take 1 tablet by mouth before meals and at bedtime for 7 days, THEN 1 tablet every 8 hours as needed for nausea/vomiting. 60 tablet 10/16/2024 11/22/2024 Active Start: 09-25-2024 End: 09-25-2024 4 mg, IntraVENous, Once, On 09/25/24 at 0015, For 1 dose Start: 09-17-2024 End: 09-17-2024 take 4 mg by mouth once 4 mg, Oral, Once, On Sat 09/07 10/01 at 1720, For 1 dose Start: 09-15-2024 End: 09-15-2024 4 mg, IntraVENous, Once, On Lena 09/15/24 at 1055, For 1 dose Start: 09-07-2024 End: 09-14-2024 ondansetron 4 mg oral tablet , disintegrating Dose : 4 mg = 1 tab(s), Oral, q6h, PRN Nausea/Vomiting, # 20 tab(s), 0 Refill(s), 09/14/24 8:36:00 PM EST Start Date: 09/07/24 Stop Date: 09/14/24 Status: Ordered Quantity: 20.0 Unit: tab(s) Repeat number: 1 Start: 12-12-2022 End: 01-14-2023 take 4 mg by mouth every eight hours Ondansetron Active 4 MG PO Q8H January 14, 2023 3:45pm Start: 12-10-2021 take 4 mg by mouth e very eight hours Ondansetron Active 4 MG PO Q8H December 10, 2021 12:00am Start: 09-14-2021 ondansetron (Z OFRAN) tablet 8 mg Start: 09-13-2021 End: 09-16-2021 take 1 tablet by mouth three times daily as needed for nausea ondansetron (ZOFRAN) 4 MG tablet Take 1 tablet by mouth 3 times daily as needed for Nausea or Vomiting 10 tablet 0 09/13/2021 09/16/2021 Discontinued (Therapy completed) Start: 09-02-2021 End: 09-04-2021 ondansetron (ZOFRAN) injecti on 4 mg Start: 08-01-2021 End: 09-16-2021 take 1 tablet by mouth three times daily as needed for nausea ondansetron (ZOFRAN-ODT) 4 MG disintegrating tablet Indications: Non-intractable vomiting with nausea, unspecified vomiting type , Complicated urinary tract infection Take 1 tablet by mouth 3 times daily as needed for Nausea or Vomiting 21 tablet 5 08/01/2021 09/16/2021 Discontinued (Therapy completed) Start: 07-18-2021 take 4 mg by mouth e very six hours Ondansetron Active 4 MG PO EVERY 6 HOURS June 01, 2023 12:00am Start: 03-22-2021 take 1 tablet by juan m three times daily as needed for nausea ondansetron (ZOFRAN-ODT) 4 MG disintegrating tablet Take 1 tablet by mouth 3 times daily as needed for Nausea or Vomiting 21 tablet 5 03/22/2021 Active Start: 03-10-2021 take 1 tablet by juan m th three times daily as needed for nausea ondansetron (ZOFRAN-ODT) 4 MG disintegrating tablet Take 1 tablet by mouth 3 times daily as needed for Nausea or Vomiting 21 tablet 0 03/10/2021 Active Start: 03-07-2021 End: 03-07-2021 4 mg, Intravenous, ONCE, On Lena 03/07/21 at 0330, For 1 dose Start: 03-06-2021 End: 03-06-2021 take 4 mg by mouth once 4 mg, Oral, ONCE, On 02/07 at 1215, For 1 dose Start: 02-23-2021 End: 02-23-2021 4 mg, Intravenous, ONCE, On 02/23/21 at 1200, For 1 dose Start: 02-22-2021 End: 03-10-2021 Start: 02-21-2021 End: 02-28-2021 take 1 tablet by mouth every eight hours Zofran ODT use ondansetron oral tablet, disintegrating Dose : 4 mg =, Oral, q8h, # 30 tab(s), 0 Refill(s), Abdominal pain Start Date: 02/21/21 Stop Date: 02/28/21 Status: Ordered Quantity: 30.0 Unit: tab(s) Repeat number: 1 Indications: Unspecified abdominal pain; Start: 02-11-2021 End: 02-11-2021 ondansetron (ZOFRAN) injecti on 4 mg Start: 01-21-2021 End: 07-16-2021 take 4 mg by mouth every eight hours Ondansetron Discontinued 4 MG PO Q8H July 12, 2021 12:00am July 16, 2021 11:42am Start: 01-14-2021 End: 01-14-2021 ondansetron (ZOFRAN-ODT) 4 M G disintegrating tablet Place 1 tablet under the tongue 3 times daily as needed for Nausea or Vomiting 60 tablet 0 01/14/2021 Active Start: 01-13-2021 End: 01-14-2021 ondansetron (ZOFRAN) injecti on 4 mg Start: 01-03-2021 End: 01-14-2021 take 1 tablet by mouth three times daily as needed for nausea ondansetron (ZOFRAN-ODT) 4 MG disintegrating tablet Take 1 tablet by mouth 3 times daily as needed for Nausea or Vomiting 21 tablet 0 01/03/2021 01/14/2021 Discontinued (REORDER) Start: 12-31-2020 End: 12-31-2020 ondansetron (ZOFRAN) injecti on 4 mg ondansetron ODT (Zofran-ODT) disintegrating tablet 4 mg (4 sources) Start: 03-15-2025 End: 03-15-2025 take 1 tablet by mouth every eight hours as needed for nausea and vomiting ondansetron ODT (Zofran-ODT) disintegrating tablet 4 mg Start: 09-15-2024 End: 09-16-2024 take 1 tablet by mouth every eight hours as needed for nausea and vomiting ondansetron ODT (Zofran-ODT) disintegrating tablet 4 mg oxyCODONE hydrochloride 5 mg oral tablet (17 sources) Opioid Agonist Start: 09-24-2024 End: 09-28-2024 take 1 tablet by mouth every six hours as needed for pain and pain 10 mg, Oral, Every 6 hours PRN, severe pain (7-10), moderate pain (4-6), Starting on Thu09/24/24 at 1300 Start: 09-20-2024 End: 09-24-2024 take 1 tablet by mouth every six hours as needed for pain and pain 5 mg, Oral, Every 6 hours PRN, severe pain (7-10), moderate pain (4-6), Starting on Thu09/21/24 at 0653 Start: 09-16-2021 oxyCODONE (ANTON ICODONE INTENSOL) 100 MG/5ML concentrated solution 5 mg Start: 09-16-2021 oxyCODONE (ANTON ICODONE INTENSOL) 100 MG/5ML concentrated solution 10 mg Start: 09-09-2021 oxyCODONE (ANTON ICODONE) immediate release tablet 5 mg Start: 03-14-2021 End: 03-17-2021 oxyCODONE (ROXICODONE) 5 MG immediate release tablet Indications: Left lower quadrant abdominal pain Take 1 tablet by mouth every 6 hours as needed for Pain for up to 3 days. Intended supply: 3 days. Take lowest dose possible to manage pain 12 tablet 0 03/14/2021 03/17/2021 Active Start: 01-13-2021 oxyCODONE (ANTON ICODONE) immediate release tablet 5 mg Start: 12-30-2020 oxyCODONE (ANTON ICODONE) immediate release tablet 5 mg Start: 12-21-2020 End: 12-21-2020 take 5 mg by mouth every four hours as needed for pain 5 mg, Oral, EVERY 4 HOURS PRN, Pain Severe (7-10), Starting Thu12/21/20 at 1647 Start: 12-21-2020 oxyCODONE (ANTON ICODONE) immediate release tablet 5 mg Start: 12-18-2020 End: 01-03-2021 oxyCODONE (ROXICODONE) 5 MG immediate release tablet Indications: Post-op pain Take 1 tablet by mouth every 6 hours as needed for Pain for up to 5 days. Intended supply: 3 days. Take lowest dose possible to manage pain 12 tablet 0 12/28/2020 01/03/2021 Discontinued (Stop Taking at Discharge) oxymetazoline hydrochloride 0.5 mg/ml nasal spray (2 sources) Start: 02-28-2021 End: 02-28-2021 2 spray, Each Nostril, ONCE, On [facility] 02/28/21 at 1500, For 1 dose Two sprays in each nares 5 minutes prior to inserting tube. Start: 02-28-2021 End: 02-28-2021 2 spray, Each Nostril, ONCE, On [facility] 02/28/21 at 1330, For 1 dose Two sprays in each nares 5 minutes prior to inserting tube. pantoprazole 40 mg delayed r elease oral tablet (20 sources) Proton Pump Inhibitor Start: 03-15-2025 End: 03-15-2025 Start: 03-15-2025 End: 03-15-2025 Start: 02-07-2021 End: 10-16-2024 take 1 tablet by mouth twice daily before mealtime, then take 4 tablets by mouth in the evening pantoprazole DR (PROTONIX) 40 mg tablet Take 1 tablet by mouth two times a day before meals at 6 am and 4 pm. 60 tablet 10/16/2024 Active Start: 01-26-2021 End: 07-12-2021 take 40 mg by mouth once daily Pantoprazole Discontinu ed 40 MG PO DAILY May 21, 2021 12:00am July 12, 2021 9:59am pantoprazole (ProtoNix) 40 mg in sodium chloride (PF) 0.9 % 10 mL injection (2 sources) Start: 09-15-2024 End: 09-16-2024 40 mg, IntraVENous, Administer over 2 Minutes, 2 times daily, First dose on Lena 09/15/24 at 2100, Reconstitute with 10 ml NS. Vial expires 2 hrs after reconstitution. phenazopyridine hydrochloride 200 mg delayed release oral tablet (9 sources) Start: 12-23-2020 End: 03-10-2021 piperacillin 4000 mg / tazobactam 500 mg injection (2 sources) Penicillin-class Antibacterial, beta Lactamase Inhibitor Start: 02-11-2021 End: 02-11-2021 piperacillin-tazobactam (ZOSYN) 4500 mg in dextrose 100 mL IVPB (premix) Start: 01-22-2021 End: 01-23-2021 piperacillin-tazobactam (ZOS YN) 3375 mg in dextrose 50 mL IVPB extended infusion (premix) polyethylene glycol 3350 64607 mg powder for oral solution (20 sources) Osmotic Laxative Start: 03-15-2025 End: 03-15-2025 take 17 g by mouth every twenty-four hours as needed for constipation Start: 10-16-2024 polyethylene g lycol 3350 17 gram packet Take 1 Packet by mouth once daily. Dissolve dose in 4 - 8 ounces of liquid and take as directed. 10/16/2024 Active Start: 09-17-2024 End: 09-28-2024 take 17 g by mouth every twenty-four hours as needed for constipation Start: 08-01-2021 End: 11-29-2021 17 g, Oral, 2 TIMES DAILY, F irst dose on 09/14/21 at 1215 Start: 07-21-2021 End: 10-19-2021 Polyethylene Glycol 3350 (Miralax) 17 gram/dose powder Active 17 GM PO TWICE A DAY 238 July 21, 2021 1:00am Discontinue or take daily depending on need once bowel movements have been initiated Start: 02-12-2021 End: 03-15-2021 Start: 01-21-2021 17 g, Oral, DA KORTNEY PRN, Constipation, Starting on Thu01/21/21 at 2306 First line therapy for constipation Start: 12-31-2020 17 g, Oral, DA KORTNEY, First dose (after last modification) on Thu12/31/20 at 0900 Start: 12-23-2020 polyethylene g lycol (GLYCOLAX) packet 17 g Potassium Chloride (20 sources) Start: 03-15-2025 End: 03-15-2025 40 mEq, IntraVENous, at 125 mL/hr, Administer over 4 Hours, Once, On Thu03/15/25 at 0945, For 1 dose, Max infusion rate = 10 mEq/hr Start: 03-12-2025 potassium chlo ride 10 mEq oral capsule, extended release Dose : 10 mEq = 1 cap(s), Oral, BID, take with food., # 8 cap(s), 0 Refill(s) Start Date: 03/12/25 Status: Ordered Quantity: 8.0 Unit: cap(s) Repeat number: 1 Start: 09-26-2024 End: 09-26-2024 40 mEq, IntraVENous, at 125 mL/hr, Administer over 4 Hours, Once, On Thu09/26/24 at 1315, For 1 dose, Max infusion rate = 10 mEq/hr Start: 09-24-2024 End: 09-24-2024 40 mEq, IntraVENous, at 125 mL/hr, Administer over 4 Hours, Once, On Thu09/24/24 at 1300, For 1 dose, Max infusion rate = 10 mEq/hr Start: 09-20-2024 End: 09-20-2024 40 mEq, IntraVENous, at 125 mL/hr, Administer over 4 Hours, Once, On Thu09/20/24 at 1400, For 1 dose, Max infusion rate = 10 mEq/hr Start: 09-20-2024 End: 09-20-2024 40 mEq, IntraVENous, at 125 mL/hr, Administer over 4 Hours, Once, On Thu09/20/24 at 0530, For 1 dose, Max infusion rate = 10 mEq/hr Start: 09-18-2024 End: 09-18-2024 40 mEq, IntraVENous, at 125 mL/hr, Administer over 4 Hours, Once, On 09/18/24 at 1145, For 1 dose, Max infusion rate = 10 mEq/hr Start: 09-17-2024 End: 09-18-2024 40 mEq, IntraVENous, at 125 mL/hr, Administer over 4 Hours, Once, On 09/17/24 at 1900, For 1 dose, Max infusion rate = 10 mEq/hr Start: 09-16-2024 End: 09-16-2024 40 mEq, IntraVENous, at 125 mL/hr, Administer over 4 Hours, Once, On Thu09/16/24 at 0830, For 1 dose, Max infusion rate = 10 mEq/hr Start: 09-15-2024 End: 09-15-2024 40 mEq, IntraVENous, at 250 mL/hr, Administer over 2 Hours, Once, On [place] 09/15/24 at 1300, For 1 dose, Max infusion rate = 10 mEq/hr Start: 09-09-2024 End: 09-16-2024 take 1 tablet by mouth twice daily potassium chloride CR (Klor-Con M10) 10 MEQ ER tablet Take 1 tablet (10 mEq) by mouth 2 times daily for 3 days. Do not crush or chew. 6 tablet 09/09/2024 09/16/2024 Discontinued (Therapy completed) Start: 09-15-2021 End: 09-16-2021 potassium chloride (KLOR-CON M) extended release tablet 40 mEq Start: 09-15-2021 End: 09-16-2021 potassium chloride 10 mEq/10 0 mL IVPB (Peripheral Line) Start: 09-06-2021 potassium chlo ride (KLOR-CON M) extended release tablet 40 mEq Potassium Chloride in NaCl IVPB 20 mEq (2 sources) Start: 09-27-2024 End: 09-27-2024 20 mEq, IntraVENous, Administer over 2 Hours, Once, On Thu09/27/24 at 1200, For 1 dose, Max infusion rate = 10 mEq/hr prochlorperazine 5 mg/ml injectable solution (17 sources) Phenothiazine Start: 09-24-2024 End: 09-24-2024 5 mg, IntraVENous, Once, On 09/24/24 at 1115, For 1 dose Start: 09-17-2024 End: 09-28-2024 take 1 tablet by mouth every six hours as needed for nausea and vomiting prochlorperazine (Compazine) tablet 10 mg Start: 09-14-2021 prochlorperazi ne (COMPAZINE) injection 10 mg Start: 09-10-2021 prochlorperazi ne (COMPAZINE) injection 10 mg Start: 09-05-2021 End: 09-05-2021 prochlorperazine (COMPAZINE) injection 10 mg Start: 09-05-2021 prochlorperazi ne (COMPAZINE) tablet 5 mg Start: 03-05-2021 10 mg, Intrave nous, EVERY 6 HOURS PRN, Nausea, Starting on Thu03/05/21 at 1403 Start: 02-27-2021 End: 03-03-2021 10 mg, Intravenous, EVERY 6 HOURS PRN, 1st line for nausea, Starting on Thu02/28/21 at 1606 Start: 01-14-2021 End: 01-23-2021 take 1 tablet by mouth every six hours as needed for nausea prochlorperazine (COMPAZINE) 5 MG tablet Take 1 tablet by mouth every 6 hours as needed for Nausea (if unresolved with zofran) 60 tablet 0 01/14/2021 01/23/2021 Discontinued (Stop Taking at Discharge) Start: 01-14-2021 prochlorperazi ne (COMPAZINE) injection 10 mg Start: 01-02-2021 End: 01-03-2021 prochlorperazine (COMPAZINE) injection 10 mg 50 ml sodium chloride 9 mg/m l injection (20 sources) Start: 03-15-2025 End: 03-15-2025 Start: 03-15-2025 End: 03-15-2025 1,000 mL, IntraVENous, at 1, 000 mL/hr, Administer over 1 Hours, Once, On Thu03/15/25 at 0140, For 1 dose Start: 01-02-2025 End: 01-02-2025 take 5-30 mL intravenously every hour 5-30 mL/hr, INTRAVENOUS, CONTINUOUS, Starting on Thu01/02/25 at 1330, Until Thu01/02/25 at 1453, Recovery or Phase I (only) Start: 12-18-2024 End: 12-18-2024 1,000 mL, IntraVENous, at 1, 000 mL/hr, Administer over 1 Hours, Once, On [place] 12/18/24 at 0735, For 1 dose Start: 09-17-2024 End: 09-17-2024 1,000 mL, IntraVENous, at 1, 000 mL/hr, Administer over 1 Hours, Once, On [facility] 09/17/24 at 1540, For 1 dose Start: 09-15-2024 End: 09-16-2024 10 mL, IntraVENous, Every 12 hours scheduled (2 times per day), First dose on [facility] 09/15/24 at 2100 Start: 09-15-2024 End: 09-16-2024 take 125 mL intravenously every hour 125 mL/hr, IntraVENous, Continuous, Starting on [facility] 09/15/24 at 1620 Start: 09-15-2024 End: 09-16-2024 take 100 mL intravenously every hour as needed, then take 20 mL intravenously every hour as needed 5-250 mL/hr, IntraVENous, PRN, if patient receiving piggyback infusions and maintenance fluids are not ordered OR KVO fluids to protect IV site / prevent frequent line interruptions/ long duration, Starting on [facility] 09/15/24 at 1614, For piggyback infusion, administer at same rate as piggyback for a total of 25 mL. Enter 25 mL into dose field and piggyback rate into rate field of order. If piggyback is infusing at a rate less than 100 mL/hr, enter 25 mL into dose field and 100 mL/hr into rate field of order. For KVO fluids, enter rate of 20 mL/hr or less into rate field of order. Start: 09-15-2024 End: 09-16-2024 take 10 mL intravenously once as needed 10 mL, IntraVENous, PRN, line care, Starting on [facility] 09/15/24 at 1614, After every IV line use Start: 09-15-2024 End: 09-15-2024 1,000 mL, IntraVENous, at 1, 000 mL/hr, Administer over 1 Hours, Once, On [facility] 09/15/24 at 1055, For 1 dose Start: 09-14-2021 take 1 dose intraven ously twice daily 5-40 mL, IntraVENous, EVERY 12 HOURS SCHEDULED (2 times per day), First dose on 09/14/21 at 2100 For Line Patency: Peripheral IV = 5 mL; Midline or Central Line = 10 mL/lumen. If following IV push medication, administer flush at same rate as the IV push. Flush volume is determined by type of infusion therapy being given. For non-viscous solutions use: Peripheral IV = 5 mL Midline or Central Line = 10 mL/lumen For viscous solutions (i.e. blood components, parenteral nutrition, contrast media, or after obtaining blood sample) use: Peripheral IV = 10 mL Midline or Central Line = 20 mL/lumen Start: 09-14-2021 IntraVENous, a t 100 mL/hr, CONTINUOUS, Starting on 09/14/21 at 1215 Start: 09-14-2021 take 25 mL intraveno usly every hour as needed 25 mL, IntraVENous, at 100 mL/hr, PRN, If patient receiving piggyback infusions without ordered maintenance IV fluids or with frequent/long duration piggyback infusions, Starting on 09/14/21 at 1141 Administer at the same rate as the piggyback being infused. Start: 09-14-2021 take 5-40 mL intrave nously once as needed 5-40 mL, IntraVENous, PRN, Line Care, After every IV line use, Starting on 09/14/21 at 1141 For Line Patency: Peripheral IV = 5 mL; Midline or Central Line = 10 mL/lumen. If following IV push medication, administer flush at same rate as the IV push. Flush volume is determined by type of infusion therapy being given. For non-viscous solutions use: Peripheral IV = 5 mL Midline or Central Line = 10 mL/lumen For viscous solutions (i.e. blood components, parenteral nutrition, contrast media, or after obtaining blood sample) use: Peripheral IV = 10 mL Midline or Central Line = 20 mL/lumen Start: 09-09-2021 take 1 dose intraven ously twice daily 5-40 mL, IntraVENous, EVERY 12 HOURS SCHEDULED (2 times per day), First dose on Thu09/09/21 at 2100 For Line Patency: Peripheral IV = 5 mL; Midline or Central Line = 10 mL/lumen. If following IV push medication, administer flush at same rate as the IV push. Flush volume is determined by type of infusion therapy being given. For non-viscous solutions use: Peripheral IV = 5 mL Midline or Central Line = 10 mL/lumen For viscous solutions (i.e. blood components, parenteral nutrition, contrast media, or after obtaining blood sample) use: Peripheral IV = 10 mL Midline or Central Line = 20 mL/lumen Start: 09-09-2021 take 25 mL intraveno usly every hour as needed 25 mL, IntraVENous, at 100 mL/hr, PRN, If patient receiving piggyback infusions without ordered maintenance IV fluids or with frequent/long duration piggyback infusions, Starting on Thu09/09/21 at 1746 Administer at the same rate as the piggyback being infused. Start: 09-09-2021 take 5-40 mL intrave nously once as needed 5-40 mL, IntraVENous, PRN, Line Care, After every IV line use, Starting on Thu09/09/21 at 1746 For Line Patency: Peripheral IV = 5 mL; Midline or Central Line = 10 mL/lumen. If following IV push medication, administer flush at same rate as the IV push. Flush volume is determined by type of infusion therapy being given. For non-viscous solutions use: Peripheral IV = 5 mL Midline or Central Line = 10 mL/lumen For viscous solutions (i.e. blood components, parenteral nutrition, contrast media, or after obtaining blood sample) use: Peripheral IV = 10 mL Midline or Central Line = 20 mL/lumen Start: 09-09-2021 End: 09-09-2021 IntraVENous, at 100 mL/hr, CONTINUOUS, Starting on Thu09/09/21 at 1815 Start: 09-04-2021 take 1 dose intraven ously twice daily 5-40 mL, IntraVENous, EVERY 12 HOURS SCHEDULED (2 times per day), First dose on Thu09/04/21 at 0900 For Line Patency: Peripheral IV = 5 mL; Midline or Central Line = 10 mL/lumen. If following IV push medication, administer flush at same rate as the IV push. Flush volume is determined by type of infusion therapy being given. For non-viscous solutions use: Peripheral IV = 5 mL Midline or Central Line = 10 mL/lumen For viscous solutions (i.e. blood components, parenteral nutrition, contrast media, or after obtaining blood sample) use: Peripheral IV = 10 mL Midline or Central Line = 20 mL/lumen Start: 09-04-2021 IntraVENous, a t 100 mL/hr, CONTINUOUS, Starting on Thu09/04/21 at 0515 Start: 09-04-2021 take 5-40 mL intrave nously once as needed 5-40 mL, IntraVENous, PRN, Line Care, After every IV line use, Starting on Thu09/04/21 at 0445 For Line Patency: Peripheral IV = 5 mL; Midline or Central Line = 10 mL/lumen. If following IV push medication, administer flush at same rate as the IV push. Flush volume is determined by type of infusion therapy being given. For non-viscous solutions use: Peripheral IV = 5 mL Midline or Central Line = 10 mL/lumen For viscous solutions (i.e. blood components, parenteral nutrition, contrast media, or after obtaining blood sample) use: Peripheral IV = 10 mL Midline or Central Line = 20 mL/lumen Start: 09-04-2021 take 25 mL intraveno usly every hour as needed 25 mL, IntraVENous, at 100 mL/hr, PRN, If patient receiving piggyback infusions without ordered maintenance IV fluids or with frequent/long duration piggyback infusions, Starting on Thu09/04/21 at 0445 Administer at the same rate as the piggyback being infused. Start: 09-02-2021 End: 09-04-2021 0.9 % sodium chloride bolus Start: 03-04-2021 10 mL, Intraca theter, EVERY 12 HOURS, First dose on Thu03/04/21 at 1330 Administer to each lumen, regardless of whether or not fluids are infusing. Line Care. Use 10 mL or larger syringe. Start: 03-04-2021 10 mL, Intraca theter, PRN, Line Care, before blood draws, before and after infusion or medication administration, Starting on Thu03/04/21 at 1310 Use 10 mL or larger syringe. Start: 03-04-2021 10 mL, Intrave nous, PRN, Line Care, Starting on Thu03/04/21 at 0852 Flush each lumen of PICC. Start: 02-23-2021 10 mL, Intrave nous, EVERY 12 HOURS SCHEDULED (2 times per day), First dose on Thu03/04/21 at 0915 Flush each lumen of PICC not connected to a continuous infusion. Start: 02-23-2021 take 5-40 mL intrave nously once as needed 5-40 mL, Intravenous, PRN, Line Care, After every IV line use, Starting on Thu02/27/21 at 1119 For Line Patency: Peripheral IV = 5 mL; Midline or Central Line = 10 mL/lumen. If following IV push medication, administer flush at same rate as the IV push. Flush volume is determined by type of infusion therapy being given. For non-viscous solutions use: Peripheral IV = 5 mL Midline or Central Line = 10 mL/lumen For viscous solutions (i.e. blood components, parenteral nutrition, contrast media, or after obtaining blood sample) use: Peripheral IV = 10 mL Midline or Central Line = 20 mL/lumen Pre-procedure(GI) Start: 02-23-2021 End: 02-23-2021 take 25 mL intravenously every hour as needed 25 mL, Intravenous, at 100 mL/hr, PRN, If patient receiving piggyback infusions without ordered maintenance IV fluids or with frequent/long duration piggyback infusions, Starting on Thu02/27/21 at 1119 Administer at the same rate as the piggyback being infused. Pre-procedure(GI) Start: 02-23-2021 End: 02-23-2021 1,000 mL (11.4 mL/kg), Intravenous, at 2,000 mL/hr, Administer over 0.5 Hours, ONCE, On Thu02/23/21 at 1015, For 1 dose Start: 02-12-2021 take 1 dose intraven ously twice daily 5-40 mL, Intravenous, EVERY 12 HOURS SCHEDULED (2 times per day), First dose on Thu02/12/21 at 0900 For Line Patency: Peripheral IV = 5 mL; Midline or Central Line = 10 mL/lumen. If following IV push medication, administer flush at same rate as the IV push. Flush volume is determined by type of infusion therapy being given. For non-viscous solutions use: Peripheral IV = 5 mL Midline or Central Line = 10 mL/lumen For viscous solutions (i.e. blood components, parenteral nutrition, contrast media, or after obtaining blood sample) use: Peripheral IV = 10 mL Midline or Central Line = 20 mL/lumen Start: 02-12-2021 take 25 mL intraveno usly every hour as needed 25 mL, Intravenous, at 100 mL/hr, PRN, If patient receiving piggyback infusions without ordered maintenance IV fluids or with frequent/long duration piggyback infusions, Starting on Thu02/12/21 at 0031 Administer at the same rate as the piggyback being infused. Start: 02-12-2021 take 5-40 mL intrave nously once as needed 5-40 mL, Intravenous, PRN, Line Care, After every IV line use, Starting on Thu02/12/21 at 0031 For Line Patency: Peripheral IV = 5 mL; Midline or Central Line = 10 mL/lumen. If following IV push medication, administer flush at same rate as the IV push. Flush volume is determined by type of infusion therapy being given. For non-viscous solutions use: Peripheral IV = 5 mL Midline or Central Line = 10 mL/lumen For viscous solutions (i.e. blood components, parenteral nutrition, contrast media, or after obtaining blood sample) use: Peripheral IV = 10 mL Midline or Central Line = 20 mL/lumen Start: 02-11-2021 Intravenous, a t 150 mL/hr, CONTINUOUS, Starting on Thu02/12/21 at 0100 Start: 02-11-2021 sodium chlorid e flush 0.9 % injection 10 mL Start: 02-11-2021 End: 02-11-2021 0.9 % sodium chloride IV sandra us 2,655 mL Start: 01-23-2021 End: 01-23-2021 0.45 % sodium chloride infus ion Start: 01-21-2021 take 1 dose intraven ously twice daily 5-40 mL, Intravenous, EVERY 12 HOURS SCHEDULED (2 times per day), First dose on Thu01/21/21 at 2330 For Line Patency: Peripheral IV = 5 mL; Midline or Central Line = 10 mL/lumen. If following IV push medication, administer flush at same rate as the IV push. Flush volume is determined by type of infusion therapy being given. For non-viscous solutions use: Peripheral IV = 5 mL Midline or Central Line = 10 mL/lumen For viscous solutions (i.e. blood components, parenteral nutrition, contrast media, or after obtaining blood sample) use: Peripheral IV = 10 mL Midline or Central Line = 20 mL/lumen Start: 01-21-2021 take 25 mL intraveno usly every hour as needed 25 mL, Intravenous, at 100 mL/hr, PRN, If patient receiving piggyback infusions without ordered maintenance IV fluids or with frequent/long duration piggyback infusions, Starting on Thu01/21/21 at 2306 Administer at the same rate as the piggyback being infused. Start: 01-21-2021 take 5-40 mL intrave nously once as needed 5-40 mL, Intravenous, PRN, Line Care, After every IV line use, Starting on 01/21/21 at 2306 For Line Patency: Peripheral IV = 5 mL; Midline or Central Line = 10 mL/lumen. If following IV push medication, administer flush at same rate as the IV push. Flush volume is determined by type of infusion therapy being given. For non-viscous solutions use: Peripheral IV = 5 mL Midline or Central Line = 10 mL/lumen For viscous solutions (i.e. blood components, parenteral nutrition, contrast media, or after obtaining blood sample) use: Peripheral IV = 10 mL Midline or Central Line = 20 mL/lumen Start: 01-13-2021 10 mL, Intrave nous, EVERY 12 HOURS SCHEDULED (2 times per day), First dose on [facility] 01/13/21 at 0900 Start: 01-13-2021 take 10 mL intraveno usly once as needed 10 mL, Intravenous, PRN, Line Care, After every IV line use, Starting [place] 01/13/21 at 0204 Start: 01-13-2021 End: 01-14-2021 0.9 % sodium chloride infusi on Start: 01-13-2021 take 25 mL intraveno usly every hour as needed 25 mL, Intravenous, at 100 mL/hr, PRN, If patient receiving piggyback infusions without ordered maintenance IV fluids or with frequent/long duration piggyback infusions, Starting [facility] 01/13/21 at 0204 Administer at the same rate as the piggyback being infused. Start: 12-30-2020 10 mL, Intrave nous, EVERY 12 HOURS SCHEDULED (2 times per day), First dose (after last modification) on [facility] 12/30/20 at 2100 Flush each lumen of PICC not connected to a continuous infusion. Start: 12-30-2020 End: 12-31-2020 0.9 % sodium chloride infusi on Start: 12-30-2020 take 10 mL intraveno usly once as needed 10 mL, Intravenous, PRN, Line Care, After every IV line use, Starting [facility] 12/30/20 at 1545 Start: 04-25-2021 10 mL, Intrave nous, PRN, Line Care, Starting Thu12/30/20 at 1545 Flush each lumen of PICC. Start: 12-30-2020 10 mL, Intraca theter, PRN, Line Care, before blood draws, before and after infusion or medication administration, Starting Thu12/30/20 at 1545 Use 10 mL or larger syringe. Start: 12-30-2020 take 25 mL intraveno usly every hour as needed 25 mL, Intravenous, at 100 mL/hr, PRN, If patient receiving piggyback infusions without ordered maintenance IV fluids or with frequent/long duration piggyback infusions, Starting Thu12/30/20 at 1544 Administer at the same rate as the piggyback being infused. Start: 12-27-2020 sodium chlorid e flush 0.9 % injection 10 mL Start: 12-27-2020 sodium chlorid e flush 0.9 % injection 10 mL Start: 12-21-2020 10 mL, Intrave nous, EVERY 12 HOURS SCHEDULED (2 times per day), First dose on Thu12/21/20 at 2100 Start: 12-21-2020 take 25 mL intraveno usly every hour as needed 25 mL, Intravenous, at 100 mL/hr, PRN, If patient receiving piggyback infusions without ordered maintenance IV fluids or with frequent/long duration piggyback infusions, Starting Thu12/21/20 at 1646 Administer at the same rate as the piggyback being infused. Start: 12-21-2020 take 10 mL intraveno usly once as needed 10 mL, Intravenous, PRN, Line Care, After every IV line use, Starting Thu12/21/20 at 1646 sucralfate 1000 mg oral tablet (4 sources) Aluminum Complex Start: 09-15-2024 End: 09-16-2024 1 g, Oral, 4 times daily before meals & nightly, First dose on Thu09/15/24 at 1700, Give on an empty stomach (1 hr before meals, at bedtime). Separate all other meds by at least 2 hours (exception: antacids may be given only 30 minutes apart). Start: 09-09-2024 End: 09-16-2024 take 1 tablet by mouth three times daily before mealtime sucralfate (Carafate) 1 g tablet Take 1 tablet (1 g) by mouth 3 times daily (before meals) for 7 days. 21 tablet 09/09/2024 09/16/2024 Discontinued (Non-compliance) traZODone hydrochloride 50 mg oral tablet (6 sources) Serotonin Reuptake Inhibitor Start: 11-30-2024 End: 02-15-2025 take 1 tablet by mouth at bedtime for sleep traZODone (DESYREL) 50 mg tablet take 1 tablet by mouth at bedtime if needed for sleep / insomnia 11/30/2024 02/15/2025 Discontinued (1 source) Start: 03-06-2021 End: 03-06-2021 1 mg, Intracatheter, ONCE, On Thu03/06/21 at 1945, For 1 dose NOT FOR PERIPHERAL LINE USE. Re commend using dose of 2 mg if lumen volume 1 mL or greater. If not using premixed 1 mg syringe, dilute each vial with 2.2 mL sterile water to final concentration of 1 mg/mL. Mix by gently swirling until completely dissolved. Do not shake. Instill dose into occluded catheter lumen. Do not force solution into catheter. (1 source) Start: 03-04-2021 End: 03-04-2021 take 8 mL intravenously once as needed 8 mL, Intravenous, IMG ONCE PRN, Other, Starting on Thu03/04/21 at 1901, For 1 dose Problems Active Problems Problem Classification Problem Date Documented Date Episodic/Chronic Abdominal pain (20 sources) Abdominal pain; Translations: [Unspecified abdominal pain] Onset: 01-13-2021 Episodic Acute posthemorrhagic anemia (12 sources) Acute posthemorrhagic anemia; Translations: [Acute posthemorrhagic anemia] 07-16-2021 Episodic Adjustment disorders (9 sources) Adjustment disorder with anxious mood; Translations: [Adjustment disorder with anxiety] Onset: 08-29-2024 09-05-2024 Chronic Allergic reactions (12 sources) Urticaria; Translations: [Urticaria, unspecified] 06-05-2021 Episodic Anxiety disorders (20 sources) Anxiety disorder; Translations: [Anxiety disorder, unspecified] Onset: 03-10-2021 Chronic Cota (12 sources) Chemical burn of right foot; Translations: [Corrosion of unspecified degree of right foot, initial encounter] 07-06-2020 Episodic Cancer of uterus (20 sources) Malignant neoplasm of endometrium of corpus uteri ; Translations: [Malignant neoplasm of endometrium] Onset: 11-29-2020 01-03-2021 Chronic Crushing injury or internal injury (15 sources) Injury of left ureter; Translations: [Unspecified injury of ureter, initial encounter] Episodic Deficiency and other anemia (20 sources) Iron deficiency anemia due to blood loss; Translations: [Iron deficiency anemia secondary to blood loss (chronic)] Onset: 11-07-2020 03-26-2021 Chronic Deficiency and other anemia (1 source) Chronic anemia; Translations: [Anemia, unspecified] Onset: 03-18-2025 03-18-2025 Episodic Delirium, dementia, and amnestic and other cognitive disorders (14 sources) Postconcussion syndrome; Translations: [Postconcussional syndrome] Onset: 03-26-2021 03-26-2021 Chronic Digestive congenital anomalies (11 sources) Pancreas divisum; 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] Onset: 08-14-2024 08-14-2024 Chronic Diseases of white blood cells (16 sources) Leukocytosis; Translations: [Elevated white blood cell count, unspecified] 12-11-2022 Chronic Disorders of teeth and jaw (20 sources) Disorder of oral soft tissues; Translations: [Periodontal disease, unspecified] 10-08-2022 Episodic Genitourinary symptoms and ill-defined conditions (12 sources) Retained ureteric stent; Translations: [Presence of urogenital implants] 07-20-2021 Chronic Headache; including migraine (10 sources) Headache; Translations: [Headache] 12-30-2021 Episodic Miscellaneous mental health disorders (1 source) Other specified eating disorder; 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] Onset: 10-06-2024 Chronic Mood disorders (20 sources) Reactive depression (situational); Translations: [Major depressive disorder, single episode, unspecified] Onset: 03-14-2021 03-14-2021 Chronic Nutritional deficiencies (20 sources) Nutritional marasmus; Translations: [Unspecified severe protein-calorie malnutrition] Onset: 01-22-2021 Chronic Other diseases of bladder and urethra (1 source) Bleeding from urethra; Translations: [Other specified disorders of urethra] Episodic Other diseases of kidney and ureters (14 sources) Hydronephrosis; Translations: [Hydronephrosis with ureteral stricture, not elsewhere classified] Episodic Other diseases of kidney and ureters (4 sources) Stricture of ureter; Translations: [Crossing vessel and stricture of ureter without hydronephrosis] Onset: 09-09-2021 Episodic Other disorders of stomach and duodenum (1 source) Cyclical vomiting syndrome unrelated to migraine; Translations: [Persistent vomiting] 12-26-2022 Episodic Other endocrine disorders (20 sources) Polycystic ovary syndrome; Translations: [Polycystic ovarian syndrome] Onset: 03-26-2021 03-26-2021 Chronic Other injuries and conditions due to external causes (1 source) Traumatic AND/OR non-traumatic injury; Translations: [Injury, unspecified, initial encounter] Onset: 02-26-2023 Episodic Other injuries and conditions due to external causes (1 source) Starvation ketoacidosis; Translations: [Starvation, initial encounter] Onset: 03-18-2025 03-18-2025 Episodic Other liver diseases (9 sources) Steatosis of liver; Translations: [Fatty (change of) liver, not elsewhere classified] Onset: 10-06-2024 10-14-2024 Chronic Other nervous system disorders (9 sources) Chronic pain syndrome; Translations: [Chronic pain syndrome] Onset: 10-07-2024 10-14-2024 Chronic Other nervous system disorders (4 sources) Other chronic pain; Translations: [Other chronic pain] Onset: 09-09-2024 Chronic Other nervous system disorders (20 sources) Postoperative pain ; Translations: [Other acute postprocedural pain] Onset: 12-21-2020 Episodic Other nutritional; endocrine; and metabolic disorders (8 sources) Body mass index 30+ - obesity; Translations: [Obesity, unspecified] Onset: 01-02-2021 Chronic Other nutritional; endocrine; and metabolic disorders (9 sources) Obese class I; Translations: [Obesity, Class I, BMI 30-34.9] Onset: 08-09-2024 10-06-2024 Chronic Other nutritional; endocrine; and metabolic disorders (9 sources) Obese class II; Translations: [Obesity, Class II, BMI 35-39.9] Onset: 08-22-2024 08-29-2024 Chronic Pancreatic disorders (not diabetes) (1 source) Other chronic pancreatitis; Translations: [Chronic pancreatitis, unspecified pancreatitis type (HCC)] Onset: 10-06-2024 Chronic Pancreatic disorders (not diabetes) (2 sources) Acute pancreatitis without necrosis or infection, unspecified; Translations: [Idiopathic acute pancreatitis without necrosis or infection] Onset: 07-29-2024 Episodic Residual codes; unclassified (12 sources) Generally unwell; Translations: [Other general symptoms and signs] 06-05-2021 Episodic Substance-related disorders (7 sources) Cannabis dependence; Translations: [Cannabis dependence with other cannabis-induced disorder] Onset: 07-20-2024 Chronic Unclassified (2 sources) Cyclical vomiting syndrome unrelated to migraine; Translations: [Cyclic vomiting syndrome] Onset: 12-05-2024 Viral infection (6 sources) Disease caused by 2019-nCoV; Translations: [COVID-19] Onset: 01-21-2021 Episodic Past or Other Problems Problem Classification Problem Date Documented Da te Episodic/Chronic Bacterial infection; unspecified site (8 sources) Bacteremia caused by Gram-positive bacteria; Translations: [Bacteremia] Onset: 2 06-23-2022 Episodic Biliary tract disease (10 sources) Other specified diseases of gallbladder; Translations: [Chronic cholecystitis] Onset: 4 08-12-2024 Episodic Calculus of urinary tract (20 sources) Ureteric stone; Translations: [Calculus of ureter] Onset: 1 Episodic Cardiac dysrhythmias (1 source) Tachycardia, unspecified; Translations: [Tachycardia] Onset: 5 Episodic Complications of surgical procedures or medical care (8 sources) Complication of surgical procedure; Translations: [Other intraoperative complications of genitourinary system] Onset: 2 06-23-2022 Episodic Fluid and electrolyte disorders (20 sources) Hypokalemia; Translations: [Hypokalemia] Onset: 4 01-13-2021 Episodic Genitourinary symptoms and ill-defined conditions (20 sources) Retention of urine; Translations: [Retention of urine, unspecified] Onset: 1 Episodic Miscellaneous mental health disorders (9 sources) At risk for deliberate self harm ; Translations: [Other symptoms and signs involving emotional state] Onset: 4 09-05-2024 Episodic Nausea and vomiting (20 sources) Nausea and vomiting; Translations: [Nausea with vomiting, unspecified] Onset: 1 Resolved: 1 Episodic Other diseases of kidney and ureters (19 sources) Hydronephrosis co-occurrent and due to ureteral stricture; Translations: [Hydronephrosis with ureteral stricture, not elsewhere classified] Onset: 1 Resolved: 5 Episodic Other disorders of stomach and duodenum (20 sources) Cyclical vomiting syndrome; Translations: [Cyclical vomiting syndrome unrelated to migraine] Onset: 5 10-22-2021 Episodic Other disorders of stomach and duodenum (11 sources) Gastroparesis syndrome; Translations: [Gastroparesis] Onset: 4 Resolved: 4 12-26-2022 Episodic Other disorders of stomach and duodenum (2 sources) Gastroparesis; Translations: [Gastroparesis] Onset: 5 12-26-2022 Episodic Other gastrointestinal disorders (1 source) Constipation, unspecified; Translations: [Constipation, unspecified] Onset: 5 Episodic Other lower respiratory disease (9 sources) Chest pain on breathing; Translations: [Chest pain on breathing] Onset: 4 Resolved: 4 09-05-2024 Episodic Other nutritional; endocrine; and metabolic disorders (9 sources) Hypophosphatemia; Translations: [Other disorders of phosphorus metabolism] Onset: 4 Resolved: 4 09-05-2024 Chronic Other screening for suspected conditions (not mental disorders or infectious disease) (9 sources) Prolonged QT interval; Translations: [Abnormal electrocardiogram [ECG] [EKG]] Onset: 5 Resolved: 5 10-14-2024 Episodic Phlebitis; thrombophlebitis and thromboembolism (9 sources) Deep venous thrombosis of upper extremity; Translations: [Acute embolism and thrombosis of deep veins of left upper extremity] Onset: 4 09-05-2024 Episodic Residual codes; unclassified (8 sources) Difficult venous access; Translations: [Other specified health status] Onset: 2 06-23-2022 Episodic Residual codes; unclassified (9 sources) At risk of delirium; Translations: [Other specified personal risk factors, not elsewhere classified] Onset: 5 10-10-2024 Episodic Residual codes; unclassified (9 sources) Finding of personal status; Translations: [Other specified health status] Onset: 5 10-14-2024 Episodic Septicemia (except in labor) (6 sources) Infectious agent in bloodstream; Translations: [Sepsis, unspecified organism] Resolved: 1 08-01-2021 Episodic Substance-related disorders (7 sources) Cannabis use, unspecified, uncomplicated; Translations: [Cannabis abuse, unspecified] Onset: 4 12-07-2024 Episodic Urinary tract infections (20 sources) Urinary tract infectious disease; Translations: [Urinary tract infection, site not specified] Onset: 1 Resolved: 5 Episodic Results Test Name Value Interpretation Reference Range Facility BRIEF OP NOTon 03-22-2025 BRIEF OP NOT Normal [facility] Emergency Department Summary on 03-22-2025 Emergency Department Summary [facility] Medical Records Department [address] [place] [address] Emergency Department Summary 03/22/25 MR#: [id number] Acct: [id number] Name: ADDIS TORRES Rep #: [id number] : 2000 25 From: Jerrell Lozada MD PCP: Care Physician,No Primary Status:REG ER Location: ED HPI History of Present Illness Chief Complaint: Back Informant: patient and spouse/S.O. Onset/Context/Timing Onset: Today Context: Sudden Onset Injury: direct trauma and fall (Fell down about 14 steps injuring her back.) Timing: Continuous Quality: Sharp Location: Thoracic and Lumbar Current Severity: Moderate Maximum Severity: Moderate Worsened by: improves with Movement Relieved by: Nothing Associated Symptoms Associated Symptoms: Negative for Numbness, Tingling, Radiation to Right Leg, Radiation to Left Leg, Fever, Abdominal Pain, Dysuria, Unable to Ambulate, Unable to Transfer, Urinary Retention, Urinary Incontinence, Constipation or Fecal Incontinence Narrative Narrative: 25-year-old female with a history of chronic pain syndrome having uterine cancer. She sees pain management the [facility]. Recently received a back injection for pain. Today she was at home wearing socks slipped going down steps said she fell on her buttock and went down about 14 steps. No LOC. No blood thinners. Only complaint is thoracic and lumbar back pain. No prior back surgeries. No weakness nor numbness nor tingling to her legs. No neck pain. No headache. Prior similar symptoms: No Recent Illness/Hospitalization: No [facility] Medical History Cholecystectomy planned Intractable nausea and vomiting Gastroparesis Cyclic vomiting syndrome History of alcohol abuse Ureteral stricture, left Retained ureteral stent Hypertension Depression Ureterolithiasis Ureter injury Non-smoker Endometrial cancer PCOS (polycystic ovarian syndrome) Home Medications ???Medication ???Instructions ???Recorded ???Last Taken ???Type gabapentin 600 mg tablet 600 mg PO TID #90 tabs 11/30/24 Rx methocarbamol 500 mg tablet 500 mg PO TID #90 tabs 11/30/24 Rx mirtazapine 15 mg disintegrating 15 mg PO QHS #30 tabs 11/30/24 Rx tablet ondansetron 4 mg disintegrating 4 mg PO Q6H PRN nausea and 5 11/30/24 Rx tablet vomiting #90 tabs pantoprazole 40 mg tablet,delayed 40 mg PO BID #60 TABLETS 11/30/24 11/30/24 Rx release dicyclomine 10 mg capsule 10 mg PO TID #90 caps 01/31/25 Unk nown Rx alprazolam 0.5 mg tablet 0.5 mg PO TID PRN PRN abdominal Unknown History Held on 03/22/25. pain Instructions: in between scripts at the [facility] amitriptyline 10 mg tablet 10 mg PO QHS 03/22/25 Unknown Hist ory hyoscyamine sulfate 0.125 mg 0.125 mg sublingual 4X/DAY 5 Unknown History sublingual tablet metoclopramide HCl 5 mg/5 mL oral 10 mg PO TID 03/22/25 Unknown His tory solution Allergy/AdvReac Type Severity Reaction Status Date / Time ceftriaxone (From Rocephin) Allergy Hives Verified 03/22/25 19:24 promethazine (From Phenergan) Allergy Vomiting Verified 03/22/25 19:24 Ringer's solution,lactated Allergy Hives Verified 03/22/25 19:24 acetaminophen (From Connell) AdvReac Nausea Verified 03/22/25 19:25 hydrocodone (From Connell) AdvReac Nausea Verified 03/22/25 19:25 Family History Father No problems noted. Mother Anxiety and depression GERD (gastroesophageal reflux disease) Surgical History History of renal stent History of hysterectomy for cancer Social History household members: family Smoking Status: Never smoker alcohol intake: former substance use type: marijuana and other details: No marijuana use in the last month ROS ROS ED ROS Narrative Denies recent illness. Constitutional Constitutional ED: Denies chills or fever(s) Eyes Eyes: Denies blurry vision ENT ENT ED: Denies ear pain Cardiovascular Cardiovascular: Denies chest pain or palpitations Respiratory/Chest Respiratory/Chest: Denies dyspnea or dyspnea on exertion Gastrointestinal Gastrointestinal: Denies abdominal pain Genitourinary Genitourinary ED: Denies dysuria or hematuria Musculoskeletal Musculoskeletal: Denies arthralgias, back pain or myalgias Integumentary Denies abscess or Abrasions Neurologic Neurologic: Denies headache(s) Psychiatric Psychiatric: Denies anxiety or depression Endocrine Endocrinology: Denies cold intolerance Hematologic/Lymphatic Hematologic/Lymphatic: Denies easy bleeding, easy bruising or lymphadenopathy Allergic/Immunologic Allergic/Immunologic ED: Denie (more content not included)... Normal [facility] Lumbar Spine 2 or 3 Viewson 03-22-2025 Lumbar Spine 2 or 3 Views [facility] Imaging Services [address] [place] [address] Lumbar Spine 2 or 3 Views MR#: [id number] Acct: [id number] Name: ADDIS TORRES Rep #: [id number] : 2000 F 25 From: Claudy Hernandez MD PCP: Care Physician,No Primary Status: DEP ER Study: Lumbar Spine 2 or 3 Views Date of Exam: Exam# [id number] Ordering Dr: Jerrell Lozada MD PROCEDURE: THORACIC SPINE 2 VIEWS; LUMBAR SPINE 2 OR 3 VIEWS 03/22/2025 REASON FOR EXAM: FELL DOWN MULTIPLE STEPS TECHNIQUE: THORACIC SPINE 2 VIEWS; LUMBAR SPINE 2 OR 3 VIEWS COMPARISON: None. FINDINGS: No evidence of acute fracture or subluxation. Vertebral body height is preserved. Alignment is anatomic. No significant degenerative changes are appreciated. Well preserved disc spaces. Unremarkable soft tissues. Right upper abdominal cholecystectomy surgical clips. RAD/Lumbar Spine 2 or 3 Views IMPRESSION: No evidence of acute fracture or subluxation. Reading Location: [facility] CC: Dr. Jerrell Lozada MD; No Primary Care Physician Music Education Adjunct Professor: Signed Normal [facility] NURSING PROGon 03-22-2025 NURSING PROG Normal [facility] OPERATIVE NOon 03-22-2025 OPERATIVE NO Normal [facility] Thoracic Spine 2 Viewson Thoracic Spine 2 Views [facility] Imaging Services [address] [place] [address] Thoracic Spine 2 Views MR#: [id number] Acct: [id number] Name: ADDIS TORRES Rep #: [id number] : 2000 F 25 From: Claudy Hernandez MD PCP: Care Physician,No Primary Status: [facility] ER Study: Thoracic Spine 2 Views Date of Exam: 03/22/25 Exam# [id number] Ordering Dr: Jerrell Lozada MD PROCEDURE: THORACIC SPINE 2 VIEWS; LUMBAR SPINE 2 OR 3 VIEWS 03/22/2025 REASON FOR EXAM: FELL DOWN MULTIPLE STEPS TECHNIQUE: THORACIC SPINE 2 VIEWS; LUMBAR SPINE 2 OR 3 VIEWS COMPARISON: None. FINDINGS: No evidence of acute fracture or subluxation. Vertebral body height is preserved. Alignment is anatomic. No significant degenerative changes are appreciated. Well preserved disc spaces. Unremarkable soft tissues. Right upper abdominal cholecystectomy surgical clips. RAD/Thoracic Spine 2 Views IMPRESSION: No evidence of acute fracture or subluxation. Reading Location: [facility] CC: Dr. Jerrell Lozada MD; No Primary Care Physician Music Education Adjunct Professor: Signed Normal [facility] HISTORY PHYSICALon HISTORY PHYSICAL Normal [facility] Albumin SerPl-mCncon 025 Albumin [Mass/Vol] 4.4 g/dL Normal 3.9-4.9 [facility] Comment on above: Order Comment: Speci men Type: BLOOD SPECIMENOrdering Facility: [facility] Address: [address] [place] [address] Performed By: #### 2 4321-2, 2777-1, 1751-03, ####[facility] [id number] [place] [id number] [place] Basic metabolic 2000 panelon 03-18-2025 Anion gap [Moles/Vol] 14 mmol/L Normal 8-15 [facility] Comment on above: Order Comment: Speci men Type: BLOOD SPECIMENOrdering Facility: [facility] Address: [address] [place] [address] Performed By: #### 2 4321-2, 2777-1, 1751-03, ####[facility] [id number] [place] [id number] [place] Calcium [Mass/Vol] 8.8 mg/dL Normal 8.5-10.2 [facility] Comment on above: Order Comment: Speci men Type: BLOOD SPECIMENOrdering Facility: [facility] Address: [address] [place] [address] Performed By: #### 2 4321-2, 2777-1, 1751-03, ####[facility] [id number] [place] [id number] [place] Chloride [Moles/Vol] 102 mmol/L Normal 98-107 [facility] Comment on above: Order Comment: Speci men Type: BLOOD SPECIMENOrdering Facility: [facility] Address: [address] [place], [place] [address] Performed By: #### 2 4321-2, 2777-1, 1751-03, ####[facility] [id number] [place] [id number] [place] CO2 [Moles/Vol] 19 mmol/L Low 22-30 [facility] Comment on above: Order Comment: Speci men Type: BLOOD SPECIMENOrdering Facility: [facility] Address: [address] [place] [address] Performed By: #### 2 4321-2, 2777-1, 1751-03, ####[facility] [id number] [place] [address] [place] Creatinine [Mass/Vol] 0.60 mg/dL Normal 0.58-0.96 [facility] Comment on above: Order Comment: Speci men Type: BLOOD SPECIMENOrdering Facility: [facility] Address: [address] [place] [address] Performed By: #### 2 4321-2, 2777-1, 1751-03, ####[facility] [id number] [place] [address] [place] Creatinine and Glomerular filtration rate.predicted panel (S/P/Bld) 128 mL/min/1.73m??? Normal >=60 [facility] Comment on above: Order Comment: Speci men Type: BLOOD SPECIMENOrdering Facility: [facility] Address: [address] [place] [address] Result Comment: Cinthya mated Glomerular Filtration Rate (eGFR) is calculated using the 2020 CKD-EPI creatinine equation. This equation utilizes serum creatinine, sex, and age as parameters. The creatinine assay has traceable calibration to isotope dilution-mass spectrometry. Refer to KDIGO guidelines for clinical interpretation. In patients with unstable renal function, e.g. those with acute kidney injury, the eGFR may not accurately reflect actual GFR. Performed By: #### 2 4321-2, 277-1, 1751-03, ####[facility] [id number] [address] [address] [place] Glucose [Mass/Vol] 98 mg/dL Normal 74-99 [facility] Comment on above: Order Comment: Speci men Type: BLOOD SPECIMENOrdering Facility: [facility] Address: [address] [place] [address] Result Comment: The [place] Diabetes Association (ADA) provides guidance for cutoff values for fasting glucose and random glucose. The ADA defines fasting as no caloric intake for at least 8 hours. Fasting plasma glucose results between 100 to 125 mg/dL indicate increased risk for diabetes (prediabetes).Fasting plasma glucose results greater than or equal to 126 mg/dL meet the criteria for diagnosis of diabetes. In the absence of unequivocal hyperglycemia, results should be confirmed by repeat testing. In a patient with classic symptoms of hyperglycemia or hyperglycemic crisis, random plasma glucose results greater than or equal to 200 mg/dL meet the criteria for diagnosis of diabetes.Reference: Standards of Medical Care in Diabetes 2016, [place] [employer] Association. Diabetes Care. 2016.39(Suppl 1). Performed By: #### 2 4321-2, 277-1, 1751-03, ####[facility] [id number] [place] [id number] [place] Potassium [Moles/Vol] 3.6 mmol/L Low 3.7-5.1 [facility] Comment on above: Order Comment: Speci men Type: BLOOD SPECIMENOrdering Facility: [facility] Address: [address] [place] [address] Performed By: #### 2 4321-2, 2777-1, 1751-03, ####[facility] [id number] [place] [id number] [place] Sodium [Moles/Vol] 135 mmol/L Low 136-144 [facility] Comment on above: Order Comment: Speci men Type: BLOOD SPECIMENOrdering Facility: [facility] Address: [address] [place] [address] Performed By: #### 2 4321-2, 2777-1, 7, ####[facility] [id number] [place] [id number] [place] Urea nitrogen [Mass/Vol] 4 mg/dL Low 7-21 [facility] Comment on above: Order Comment: Speci men Type: BLOOD SPECIMENOrdering Facility: [facility] Address: [address] [place] [address] Performed By: #### 2 4321-2, 2777-1, 1751-03, ####[facility] [id number] [place] [address] [place] CBC panel Auto (Bld)on 03-18 Erythrocyte distribution width (RBC) [Ratio] 17.9 % High 11.5-15.0 [facility] Comment on above: Order Comment: Speci men Type: BLOOD SPECIMENOrdering Facility: [facility] Address: [address] [place] [address] Performed By: #### 5 8410-2 ####[facility] [id number] [place] [address] [place] Hematocrit (Bld) [Volume fraction] 33.6 % Low 36.0-46.0 [facility] Comment on above: Order Comment: Speci men Type: BLOOD SPECIMENOrdering Facility: [facility] Address: [address] [place] [address] Performed By: #### 5 8410-2 ####[facility] [id number] [place] [id number] [place] Hemoglobin (Bld) [Mass/Vol] 10.3 g/dL Low 11.5-15.5 [facility] Comment on above: Order Comment: Speci men Type: BLOOD SPECIMENOrdering Facility: [facility] Address: [address] [place] [address] Performed By: #### 5 8410-2 ####[facility] [id number] [place] [address] [place] MCH (RBC) [Entitic mass] 23.4 pg Low 26.0-34.0 [facility] Comment on above: Order Comment: Speci men Type: BLOOD SPECIMENOrdering Facility: [facility] Address: [address] [place] [address] Performed By: #### 5 8410-2 ####[facility] [id number] [place] [address] [place] MCHC (RBC) [Mass/Vol] 30.7 g/dL Normal 30.5-36.0 [facility] Comment on above: Order Comment: Speci men Type: BLOOD SPECIMENOrdering Facility: [facility] Address: [address] [place] [address] Performed By: #### 5 8410-2 ####[facility] [id number] [place] [address] [place] MCV (RBC) [Entitic vol] 76.2 fL Low 80.0-100.0 [facility] Comment on above: Order Comment: Speci men Type: BLOOD SPECIMENOrdering Facility: [facility] Address: [address] [place] [address] Performed By: #### 5 8410-2 ####[facility] [id number] [place] [address] [place] Nucleated RBC (Bld) [#/Vol] 10*3/uL Normal <0.01 [facility] Comment on above: Order Comment: Speci men Type: BLOOD SPECIMENOrdering Facility: [facility] Address: [address] [place] [address] Performed By: #### 5 8410-2 ####[facility] [id number] [place] [address] [place] Platelet mean volume (Bld) [Entitic vol] 10.7 fL Normal 9.0-12.7 [facility] Comment on above: Order Comment: Speci men Type: BLOOD SPECIMENOrdering Facility: [facility] Address: [address] [place] [address] Performed By: #### 5 8410-2 ####[facility] [id number] [place] [address] [place] Platelets (Bld) [#/Vol] 352 10*3/uL Normal 150-400 [facility] Comment on above: Order Comment: Speci men Type: BLOOD SPECIMENOrdering Facility: [facility] Address: [address] [place] [address] Performed By: #### 5 8410-2 ####[facility] [id number] [place] [address] [place] RBC (Bld) [#/Vol] 4.41 10*6/uL Normal 3.90-5.20 [facility] Comment on above: Order Comment: Speci men Type: BLOOD SPECIMENOrdering Facility: [facility] Address: [address] [place] [address] Performed By: #### 5 8410-2 ####[facility] [id number] [place] [address] [place] WBC (Bld) [#/Vol] 11.73 10*3/uL High 3.70-11.00 [facility] Comment on above: Order Comment: Speci men Type: BLOOD SPECIMENOrdering Facility: [facility] Address: [address] [place] [address] Performed By: #### 5 8410-2 ####[facility] [id number] [place] [address] [place] Erythrocyte distribution width (RBC) [Ratio] 17.3 % High 11.5-15.0 [facility] Comment on above: Order Comment: Speci men Type: BLOOD SPECIMENOrdering Facility: [facility] Address: [address] [place] [address] Performed By: #### 5 8410-2 ####[facility] [id number] [place] [address] [place] Hematocrit (Bld) [Volume fraction] 32.8 % Low 36.0-46.0 [facility] Comment on above: Order Comment: Speci men Type: BLOOD SPECIMENOrdering Facility: [facility] Address: [address] [place] [address] Performed By: #### 5 8410-2 ####[facility] [id number] [place] [address] [place] Hemoglobin (Bld) [Mass/Vol] 10.0 g/dL Low 11.5-15.5 [facility] Comment on above: Order Comment: Speci men Type: BLOOD SPECIMENOrdering Facility: [facility] Address: [address] [place] [address] Performed By: #### 5 8410-2 ####[facility] [id number] [place] [address] [place] MCH (RBC) [Entitic mass] 23.0 pg Low 26.0-34.0 [facility] Comment on above: Order Comment: Speci men Type: BLOOD SPECIMENOrdering Facility: [facility] Address: [address] [place] [address] Performed By: #### 5 8410-2 ####[facility] [id number] [place] [address] [place] MCHC (RBC) [Mass/Vol] 30.5 g/dL Normal 30.5-36.0 [facility] Comment on above: Order Comment: Speci men Type: BLOOD SPECIMENOrdering Facility: [facility] Address: [address] [place] [address] Performed By: #### 5 8410-2 ####[facility] [id number] [address], [facility]95 [place] MCV (RBC) [Entitic vol] 75.6 fL Low 80.0-100.0 [facility] Comment on above: Order Comment: Speci men Type: BLOOD SPECIMENOrdering Facility: [facility] Address: [address] [place] [address] Performed By: #### 5 8410-2 ####[facility] [id number] [address], [facility] [place] Nucleated RBC (Bld) [#/Vol] 10*3/uL Normal <0.01 [facility] Comment on above: Order Comment: Speci men Type: BLOOD SPECIMENOrdering Facility: [facility] Address: [address] [place] [address] Performed By: #### 5 8410-2 ####[facility] [id number] [address], [place] [address] [place] Platelet mean volume (Bld) [Entitic vol] 9.4 fL Normal 9.0-12.7 [facility] Comment on above: Order Comment: Speci men Type: BLOOD SPECIMENOrdering Facility: [facility] Address: [address] [place] [address] Performed By: #### 5 8410-2 ####[facility] [id number] [address], [facility]95 [place] Platelets (Bld) [#/Vol] 346 10*3/uL Normal 150-400 [facility] Comment on above: Order Comment: Speci men Type: BLOOD SPECIMENOrdering Facility: [facility] Address: [address] [place] [address] Performed By: #### 5 8410-2 ####[facility] [id number] [address] [address] [place] RBC (Bld) [#/Vol] 4.34 10*6/uL Normal 3.90-5.20 [facility] Comment on above: Order Comment: Speci men Type: BLOOD SPECIMENOrdering Facility: [facility] Address: [address] [place] [address] Performed By: #### 5 8410-2 ####[facility] [id number] [place] [address] [place] WBC (Bld) [#/Vol] 11.73 10*3/uL High 3.70-11.00 [facility] Comment on above: Order Comment: Speci men Type: BLOOD SPECIMENOrdering Facility: [facility] Address: [address] [place] [address] Performed By: #### 5 8410-2 ####[facility] [id number] [place] [address] [place] Magnesium SerPl-ncon 03-18 Magnesium [Mass/Vol] 2.0 mg/dL Normal 1.7-2.3 [facility] Comment on above: Order Comment: Speci men Type: BLOOD SPECIMENOrdering Facility: [facility] Address: [address] [place] [address] Performed By: #### 2 4321-2, 2777-1, 1751-03, 68521-2 ####[facility] [id number] [place] [address] [place] Phosphate SerPl-mCncon 03-18 Phosphate [Mass/Vol] 2.2 mg/dL Low 2.7-4.8 [facility] Comment on above: Order Comment: Speci men Type: BLOOD SPECIMENOrdering Facility: [facility] Address: [address] [place] [address] Performed By: #### 2 4321-2, 2777-1, 1751-03, 93102-2 ####[facility] [id number] [place] [address] [place] B-HYDROXYBUTYRATEon 03-17-20 25 Beta hydroxybutyrate [Moles/Vol] 3.21 mmol/L High <0.28 [facility] Comment on above: Order Comment: Speci men Type: BLOOD SPECIMENOrdering Facility: [facility] Address: [address] [place] [address] Result Comment: This test was developed, and its performance characteristics determined by the [facility] Department of Pathology and Laboratory Medicine. It has not been cleared or approved by the FDA. The [facility] Department of Pathology and Laboratory Medicine is regulated under CLIA as qualified to perform high-complexity testing. This test is used for clinical purposes. It should not be regarded as investigational or for research. Performed By: #### 2 4323-8, 98946-0, 3040-3, [facility] ####[facility] [id number] [place] [address] [place] Basic metabolic 2000 panelon 03-17-2025 Anion gap [Moles/Vol] 19 mmol/L High 8-15 [facility] Comment on above: Order Comment: Speci men Type: BLOOD SPECIMENOrdering Facility: [facility] Address: [address] [place] [address] Performed By: #### 5 0190-8, 84295-8, 6-4, 02427-0 ####[facility] [id number] [place] [address] [place] Calcium [Mass/Vol] 9.2 mg/dL Normal 8.5-10.2 [facility] Comment on above: Order Comment: Speci men Type: BLOOD SPECIMENOrdering Facility: [facility] Address: [address] [place] [address] Performed By: #### 5 0190-8, 88887-3, 6-4, 36972-8 ####[facility] [id number] [address] [id number] [address] [place] Chloride [Moles/Vol] 101 mmol/L Normal 98-107 [facility] Comment on above: Order Comment: Speci men Type: BLOOD SPECIMENOrdering Facility: [facility] Address: [address] [place] [address] Performed By: #### 5 0190-8, 53690-8, 2276-4, 22202-7 ####[facility] [id number] [place] [address] [place] CO2 [Moles/Vol] 18 mmol/L Low 22-30 [facility] Comment on above: Order Comment: Speci men Type: BLOOD SPECIMENOrdering Facility: [facility] Address: [address] [place] [address] Performed By: #### 5 0190-8, 92030-5, 6-4, 18130-6 ####[facility] [id number] [place] [address] [place] Creatinine [Mass/Vol] 0.62 mg/dL Normal 0.58-0.96 [facility] Comment on above: Order Comment: Speci men Type: BLOOD SPECIMENOrdering Facility: [facility] Address: [address] [place] [address] Performed By: #### 5 0190-8, 88357-9, 6-4, 18583-9 ####[facility] [id number] [place] [address] [place] Creatinine and Glomerular filtration rate.predicted panel (S/P/Bld) 127 mL/min/1.73m??? Normal >=60 [facility] Comment on above: Order Comment: Speci men Type: BLOOD SPECIMENOrdering Facility: [facility] Address: [address] [place] [address] Result Comment: Cinthya mated Glomerular Filtration Rate (eGFR) is calculated using the 2020 CKD-EPI creatinine equation. This equation utilizes serum creatinine, sex, and age as parameters. The creatinine assay has traceable calibration to isotope dilution-mass spectrometry. Refer to KDIGO guidelines for clinical interpretation. In patients with unstable renal function, e.g. those with acute kidney injury, the eGFR may not accurately reflect actual GFR. Performed By: #### 5 0190-8, 00229-5, 2275-12, ####[facility] [id number] [address] [address] [place] Glucose [Mass/Vol] 89 mg/dL Normal 74-99 [facility] Comment on above: Order Comment: Alex mcgovern Type: BLOOD SPECIMENOrdering Facility: [facility] Address: [address] [place] [address] Result Comment: The [place] [employer] (ADA) provides guidance for cutoff values for fasting glucose and random glucose. The ADA defines fasting as no caloric intake for at least 8 hours. Fasting plasma glucose results between 100 to 125 mg/dL indicate increased risk for diabetes (prediabetes).Fasting plasma glucose results greater than or equal to 126 mg/dL meet the criteria for diagnosis of diabetes. In the absence of unequivocal hyperglycemia, results should be confirmed by repeat testing. In a patient with classic symptoms of hyperglycemia or hyperglycemic crisis, random plasma glucose results greater than or equal to 200 mg/dL meet the criteria for diagnosis of diabetes.Reference: Standards of Medical Care in Diabetes 2016, [place] [employer]. Diabetes Care. 2016.39(Suppl 1). Performed By: #### 5 0190-8, 93787-9, 2275-12, ####[facility] [id number] [facility] [address] [address] [place] Potassium [Moles/Vol] 3.2 mmol/L Low 3.7-5.1 [facility] Comment on above: Order Comment: Alex mcgovern Type: BLOOD SPECIMENOrdering Facility: [facility] Address: [address] [place] [address] Performed By: #### 5 0190-8, 44250-7, 2275-12, ####[facility] [id number] [place] [address] [place] Sodium [Moles/Vol] 138 mmol/L Normal 136-144 [facility] Comment on above: Order Comment: Speci men Type: BLOOD SPECIMENOrdering Facility: [facility] Address: [address] [place] [address] Performed By: #### 5 0190-8, 92226-9, 6-4, 77520-4 ####[facility] [id number] [place] [address] [place] Urea nitrogen [Mass/Vol] 6 mg/dL Low 7-21 [facility] Comment on above: Order Comment: Speci men Type: BLOOD SPECIMENOrdering Facility: [facility] Address: [address] [place] [address] Performed By: #### 5 0190-8, 88747-2, 6-4, 02647-5 ####[facility] [id number] [place] [address] [place] CBC W Auto Differential pane l (Bld)on 03-17-2025 Basophils (Bld) [#/Vol] 0.05 10*3/uL Normal <0.11 [facility] Comment on above: Order Comment: Speci men Type: BLOOD SPECIMENOrdering Facility: [facility] Address: [address] [place] [address] Performed By: #### 5 7021-8 ####[facility] [id number] [place] [address] [place] Basophils/100 WBC (Bld) 0.3 % Normal [facility] Comment on above: Order Comment: Speci men Type: BLOOD SPECIMENOrdering Facility: [facility] Address: [address] [place] [address] Performed By: #### 5 7021-8 ####[facility] [id number] [place] [address] [place] Differential cell count method Nom (Bld) Auto Normal [facility] Comment on above: Order Comment: Speci men Type: BLOOD SPECIMENOrdering Facility: [facility] Address: [address] [place] [address] Performed By: #### 5 7021-8 ####[facility] [id number] [place] [address] [place] Eosinophils (Bld) [#/Vol] 0.04 10*3/uL Normal <0.46 [facility] Comment on above: Order Comment: Speci men Type: BLOOD SPECIMENOrdering Facility: [facility] Address: [address] [place] [address] Performed By: #### 5 7021-8 ####[facility] [id number] [place] [address] [place] Eosinophils/100 WBC (Bld) 0.3 % Normal [facility] Comment on above: Order Comment: Speci men Type: BLOOD SPECIMENOrdering Facility: [facility] Address: [address] [place] [address] Performed By: #### 5 7021-8 ####[facility] [id number] [place] [address] [place] Erythrocyte distribution width (RBC) [Ratio] 17.8 % High 11.5-15.0 [facility] Comment on above: Order Comment: Speci men Type: BLOOD SPECIMENOrdering Facility: [facility] Address: [address] [place] [address] Performed By: #### 5 7021-8 ####[facility] [id number] [place] [address] [place] Hematocrit (Bld) [Volume fraction] 35.1 % Low 36.0-46.0 [facility] Comment on above: Order Comment: Speci men Type: BLOOD SPECIMENOrdering Facility: [facility] Address: [address] [place] [address] Performed By: #### 5 7021-8 ####[facility] [id number] [place] [address] [place] Hemoglobin (Bld) [Mass/Vol] 11.2 g/dL Low 11.5-15.5 [facility] Comment on above: Order Comment: Speci men Type: BLOOD SPECIMENOrdering Facility: [facility] Address: [address] [place] [address] Performed By: #### 5 7021-8 ####[facility] [id number] [place] [address] [place] Immature granulocytes (Bld) [#/Vol] 0.09 10*3/uL Normal <0.10 [facility] Comment on above: Order Comment: Speci men Type: BLOOD SPECIMENOrdering Facility: [facility] Address: [address] [place] [address] Performed By: #### 5 7021-8 ####[facility] [id number] [place] [address] [place] Immature granulocytes/100 WBC (Bld) 0.6 % Normal [facility] Comment on above: Order Comment: Speci men Type: BLOOD SPECIMENOrdering Facility: [facility] Address: [address] [place] [address] Performed By: #### 5 7021-8 ####[facility] [id number] [place] [address] [place] Lymphocytes (Bld) [#/Vol] 1.37 10*3/uL Normal 1.00-4.00 [facility] Comment on above: Order Comment: Speci men Type: BLOOD SPECIMENOrdering Facility: [facility] Address: [address] [place] [address] Performed By: #### 5 7021-8 ####[facility] [id number] [address] [id number] [address] [place] Lymphocytes/100 WBC (Bld) 9.4 % Normal [facility] Comment on above: Order Comment: Speci men Type: BLOOD SPECIMENOrdering Facility: [facility] Address: [address] [place] [address] Performed By: #### 5 7021-8 ####[facility] [id number] [place] [address] [place] MCH (RBC) [Entitic mass] 23.4 pg Low 26.0-34.0 [facility] Comment on above: Order Comment: Speci men Type: BLOOD SPECIMENOrdering Facility: [facility] Address: [address] [place] [address] Performed By: #### 5 7021-8 ####[facility] [id number] [place] [address] [place] MCHC (RBC) [Mass/Vol] 31.9 g/dL Normal 30.5-36.0 [facility] Comment on above: Order Comment: Speci men Type: BLOOD SPECIMENOrdering Facility: [facility] Address: [address] [place] [address] Performed By: #### 5 7021-8 ####[facility] [id number] [place] [address] [place] MCV (RBC) [Entitic vol] 73.4 fL Low 80.0-100.0 [facility] Comment on above: Order Comment: Speci men Type: BLOOD SPECIMENOrdering Facility: [facility] Address: [address] [place] [address] Performed By: #### 5 7021-8 ####[facility] [id number] [place] [address] [place] Monocytes (Bld) [#/Vol] 0.68 10*3/uL Normal <0.87 [facility] Comment on above: Order Comment: Speci men Type: BLOOD SPECIMENOrdering Facility: [facility] Address: [address] [place] [address] Performed By: #### 5 7021-8 ####[facility] [id number] [place] [address] [place] Monocytes/100 WBC (Bld) 4.7 % Normal [facility] Comment on above: Order Comment: Speci men Type: BLOOD SPECIMENOrdering Facility: [facility] Address: [address] [place] [address] Performed By: #### 5 7021-8 ####[facility] [id number] [place] [address] [place] Neutrophils (Bld) [#/Vol] 12.29 10*3/uL High 1.45-7.50 [facility] Comment on above: Order Comment: Speci men Type: BLOOD SPECIMENOrdering Facility: [facility] Address: [address] [place] [address] Performed By: #### 5 7021-8 ####[facility] [id number] [place] [address] [place] Neutrophils/100 WBC (Bld) 84.7 % Normal [facility] Comment on above: Order Comment: Speci men Type: BLOOD SPECIMENOrdering Facility: [facility] Address: [address] [place] [address] Performed By: #### 5 7021-8 ####[facility] [id number] [place] [id number] [place] Nucleated RBC (Bld) [#/Vol] 10*3/uL Normal <0.01 [facility] Comment on above: Order Comment: Speci men Type: BLOOD SPECIMENOrdering Facility: [facility] Address: [address] [place] [address] Performed By: #### 5 7021-8 ####[facility] [id number] [address] [address] [place] Nucleated RBC/100 WBC (Bld) [Ratio] 0.0 /100 WBC Normal [facility] Comment on above: Order Comment: Speci men Type: BLOOD SPECIMENOrdering Facility: [facility] Address: [address] [place] [address] Performed By: #### 5 7021-8 ####[facility] [id number] [place] [address] [place] Platelet mean volume (Bld) [Entitic vol] 8.9 fL Low 9.0-12.7 [facility] Comment on above: Order Comment: Speci men Type: BLOOD SPECIMENOrdering Facility: [facility] Address: [address] [place] [address] Performed By: #### 5 7021-8 ####[facility] [id number] [place] [address] [place] Platelets (Bld) [#/Vol] 388 10*3/uL Normal 150-400 [facility] Comment on above: Order Comment: Speci men Type: BLOOD SPECIMENOrdering Facility: [facility] Address: [address] [place] [address] Performed By: #### 5 7021-8 ####[facility] [id number] [place] [address] [place] RBC (Bld) [#/Vol] 4.78 10*6/uL Normal 3.90-5.20 [facility] Comment on above: Order Comment: Speci men Type: BLOOD SPECIMENOrdering Facility: [facility] Address: [address] [place] [address] Performed By: #### 5 7021-8 ####[facility] [id number] [place] [id number] [place] WBC (Bld) [#/Vol] 14.52 10*3/uL High 3.70-11.00 [facility] Comment on above: Order Comment: Speci men Type: BLOOD SPECIMENOrdering Facility: [facility] Address: [address] [place] [address] Performed By: #### 5 7021-8 ####[facility] [id number] [address] [place] [address] [place] Comprehensive metabolic 2000 panelon 03-17-2025 Albumin [Mass/Vol] 4.9 g/dL Normal 3.9-4.9 [facility] Comment on above: Order Comment: Speci men Type: BLOOD SPECIMENOrdering Facility: [facility] Address: [address] [place], [place] [address] Performed By: #### 2 4323-8, 11297-1, 0-3, B ####[facility] [id number] [address] [address] [place] ALP [Catalytic activity/Vol] 63 U/L Normal 34-123 [facility] Comment on above: Order Comment: Speci men Type: BLOOD SPECIMENOrdering Facility: [facility] Address: [address] [place], [place] [address] Performed By: #### 2 4323-8, 02328-1, 0-3, B ####[facility] [id number] [address] [address] [place] ALT [Catalytic activity/Vol] 18 U/L Normal 7-38 [facility] Comment on above: Order Comment: Speci men Type: BLOOD SPECIMENOrdering Facility: [facility] Address: [address] [place] [address] Performed By: #### 2 4323-8, 65981-6, 0-3, B ####[facility] [id number] [address] [address] [place] Anion gap [Moles/Vol] 20 mmol/L High 8-15 [facility] Comment on above: Order Comment: Speci men Type: BLOOD SPECIMENOrdering Facility: [facility] Address: [address] [place] [address] Performed By: #### 2 4323-8, , 3, B ####[facility] [id number] [address] [address] [place] AST [Catalytic activity/Vol] 14 U/L Normal 13-35 [facility] Comment on above: Order Comment: Speci men Type: BLOOD SPECIMENOrdering Facility: [facility] Address: [address] [place], [place] [address] Performed By: #### 2 4323-8, , 3, B ####[facility] [id number] [address] [address] [place] Bilirubin [Mass/Vol] 0.7 mg/dL Normal 0.2-1.3 [facility] Comment on above: Order Comment: Speci men Type: BLOOD SPECIMENOrdering Facility: [facility] Address: [address] [place], [place] [address] Performed By: #### 2 4323-8, , 3, B ####[facility] [id number] [address] [address] [place] Calcium [Mass/Vol] 9.8 mg/dL Normal 8.5-10.2 [facility] Comment on above: Order Comment: Speci men Type: BLOOD SPECIMENOrdering Facility: [facility] Address: [address] [place] [address] Performed By: #### 2 4323-8, , 3, B ####[facility] [id number] [address] [address] [place] Chloride [Moles/Vol] 97 mmol/L Low 98-107 [facility] Comment on above: Order Comment: Speci men Type: BLOOD SPECIMENOrdering Facility: [facility] Address: [address] [place], [place] [address] Performed By: #### 2 4323-8, 72910-4, 3039-3, [facility] ####[facility] [id number] [address] [address] [place] CO2 [Moles/Vol] 18 mmol/L Low 22-30 [facility] Comment on above: Order Comment: Speci men Type: BLOOD SPECIMENOrdering Facility: [facility] Address: [address] [place], [place] [address] Performed By: #### 2 4323-8, , 3039-3, B ####[facility] [facility] [id number] [place] [id number] [place] Creatinine [Mass/Vol] 0.65 mg/dL Normal 0.58-0.96 [facility] Comment on above: Order Comment: Speci men Type: BLOOD SPECIMENOrdering Facility: [facility] Address: [address] [place] [address] Performed By: #### 2 4323-8, , 3039-3, [facility] ####[facility] LABIA [id number] [place] [address] [place] Creatinine and Glomerular filtration rate.predicted panel (S/P/Bld) 125 mL/min/1.73m??? Normal >=60 [facility] Comment on above: Order Comment: Speci men Type: BLOOD SPECIMENOrdering Facility: [facility] Address: [address] [place] [address] Result Comment: Cinthya mated Glomerular Filtration Rate (eGFR) is calculated using the 2020 CKD-EPI creatinine equation. This equation utilizes serum creatinine, sex, and age as parameters. The creatinine assay has traceable calibration to isotope dilution-mass spectrometry. Refer to KDIGO guidelines for clinical interpretation. In patients with unstable renal function, e.g. those with acute kidney injury, the eGFR may not accurately reflect actual GFR. Performed By: #### 2 4323-, , 3039-3, [facility] ####[facility] LABCLIA [id number] [address] [address] [place] Glucose [Mass/Vol] 96 mg/dL Normal 74-99 [facility] Comment on above: Order Comment: Speci men Type: BLOOD SPECIMENOrdering Facility: [facility] Address: [address] [place] [address] Result Comment: The [place] Diabetes [employer] (ADA) provides guidance for cutoff values for fasting glucose and random glucose. The ADA defines fasting as no caloric intake for at least 8 hours. Fasting plasma glucose results between 100 to 125 mg/dL indicate increased risk for diabetes (prediabetes).Fasting plasma glucose results greater than or equal to 126 mg/dL meet the criteria for diagnosis of diabetes. In the absence of unequivocal hyperglycemia, results should be confirmed by repeat testing. In a patient with classic symptoms of hyperglycemia or hyperglycemic crisis, random plasma glucose results greater than or equal to 200 mg/dL meet the criteria for diagnosis of diabetes.Reference: Standards of Medical Care in Diabetes 2016, [place] [employer]. Diabetes Care. 2016.39(Suppl 1). Performed By: #### 2 3-8, , 3, [facility] ####[facility] [id number] [place] [id number] [place] Potassium [Moles/Vol] 2.9 mmol/L Low 3.7-5.1 [facility] Comment on above: Order Comment: Speci men Type: BLOOD SPECIMENOrdering Facility: [facility] Address: [address] [place] [address] Performed By: #### 2 4323-8, , 3039-3, [facility] ####[facility] [id number] [place] [id number] [place] Protein [Mass/Vol] 8.2 g/dL High 6.3-8.0 [facility] Comment on above: Order Comment: Speci men Type: BLOOD SPECIMENOrdering Facility: [facility] Address: [address] [place] [address] Performed By: #### 2 4323-8, 92909-2, 3040-3, [facility] ####[facility] LABCLIA [id number] [place] [id number] [place] Sodium [Moles/Vol] 135 mmol/L Low 136-144 [facility] Comment on above: Order Comment: Speci men Type: BLOOD SPECIMENOrdering Facility: [facility] Address: [address] [place] [address] Performed By: #### 2 4323-8, 84185-2, 3040-3, [facility] ####[facility] LABCLIA [id number] [place] [address] [place] Urea nitrogen [Mass/Vol] 7 mg/dL Normal 7-21 [facility] Comment on above: Order Comment: Speci men Type: BLOOD SPECIMENOrdering Facility: [facility] Address: [address] [place] [address] Performed By: #### 2 4323-8, 83951-5, 3040-3, [facility] ####[facility] LABCLIA [id number] [place] [address] [place] ECG COMPLETEon 03-17-2025 ECG COMPLETE Normal [facility] ED NOTEon 03-17-2025 ED NOTE Normal [facility] ED NOTE Normal [facility] ED NOTE HNO ID: [id number] Author: ANIKET MAYER LPN Service: ? Author Type: LICENSED NURSE Type: ED Notes Filed: 03/17/2025 18:01 Note Text: Bed: E14-04 Expected date: Expected time: Means of arrival: Comments: E12-03 isolation room Normal [facility] ED PROV NOTEon 03-17-2025 ED PROV NOTE Normal [facility] ED Triage Noteon 03-17-2025 ED Triage Note Normal [facility] Ferritin SerPl-mCncon 2024 Ferritin [Mass/Vol] 12.4 ng/mL Low 14.7-205.1 [facility] Comment on above: Order Comment: Speci men Type: BLOOD SPECIMENOrdering Facility: [facility] Address: [address] [place] [address] Performed By: #### 5 0190-8, 24709-4, 2276-4, 72643-7 ####[facility] LABCLIA [id number] [place] [address] [place] Gas and Carbon monoxide pane l (BldV)on 03-17-2025 BASE DEFICIT, VENOUS -3 mmol/L Low -2-0 [facility] Comment on above: Order Comment: Speci men Type: VENOUS BLOOD SPECIMENOrdering Facility: [facility] Address: [address] [place] [address] Performed By: #### 2 4344-4 ####[facility]IA [id number] [place] [address] [place] Body temperature 98.24 [degF] Normal [facility] Comment on above: Order Comment: Speci men Type: VENOUS BLOOD SPECIMENOrdering Facility: [facility] Address: [address] [place] [address] Performed By: #### 2 4344-4 ####[facility]IA [id number] [place] [address] [place] Calcium.ionized (Bld) [Mass/Vol] 1.15 mmol/L Normal 1.08-1.30 [facility] Comment on above: Order Comment: Speci men Type: VENOUS BLOOD SPECIMENOrdering Facility: [facility] Address: [address] [place] [address] Performed By: #### 2 4344-4 ####[facility] [id number] [place] [address] [place] Calcium.ionized adjusted to pH 7.4 (BldA) [Moles/Vol] 1.12 mmol/L Normal 1.08-1.30 [facility] Comment on above: Order Comment: Speci men Type: VENOUS BLOOD SPECIMENOrdering Facility: [facility] Address: [address] [place] [id number] Performed By: #### 2 4344-4 ####[facility] LABCLIA [id number] [address] [address] [place] Carboxyhemoglobin (BldV) [Mass fraction] 1.0 % Normal 0.0-2.0 [facility] Comment on above: Order Comment: Speci men Type: VENOUS BLOOD SPECIMENOrdering Facility: [facility] Address: [address] [place], [place] [address] Result Comment: Carb oxyhemoglobin Reference Range for Smokers: 2.0-8.0% Performed By: #### 2 4344-4 ####[facility] LABCLIA [id number] [address] [address] [place] CO2 (BldV) [Partial pressure] 41 mm[Hg] Low 42-55 [facility] Comment on above: Order Comment: Speci men Type: VENOUS BLOOD SPECIMENOrdering Facility: [facility] Address: [address] [place], [place] [address] Performed By: #### 2 4344-4 ####[facility] LABCLIA [id number] [address] [address] [place] CO2 adjusted to patient's actual temperature (BldV) [Partial pressure] 41 mmHg Low 42-55 [facility] Comment on above: Order Comment: Speci men Type: VENOUS BLOOD SPECIMENOrdering Facility: [facility] Address: [address] [place], [place] [address] Performed By: #### 2 4344-4 ####[facility] LABCLIA [id number] [address] [address] [place] Glucose [Mass/Vol] 93 mg/dL Normal 60-105 [facility] Comment on above: Order Comment: Speci men Type: VENOUS BLOOD SPECIMENOrdering Facility: [facility] Address: [address] [place] [address] Performed By: #### 2 4344-4 ####[facility] LABCLIA [id number] [place] [address] [place] HCO3 (Bld) [Moles/Vol] 22 mmol/L Low 24-28 [facility] Comment on above: Order Comment: Speci men Type: VENOUS BLOOD SPECIMENOrdering Facility: [facility] Address: [address] [place] [address] Performed By: #### 2 4344-4 ####[facility] LABCLIA [id number] [place] [address] [place] Hematocrit (Bld) [Volume fraction] 32.5 % Low 36.0-46.0 [facility] Comment on above: Order Comment: Speci men Type: VENOUS BLOOD SPECIMENOrdering Facility: [facility] Address: [address] [place] [address] Performed By: #### 2 4344-4 ####[facility] [id number] [place] [address] [place] Hemoglobin (Bld) [Mass/Vol] 10.5 g/dL Low 11.5-15.5 [facility] Comment on above: Order Comment: Speci men Type: VENOUS BLOOD SPECIMENOrdering Facility: [facility] Address: [address] [place] [address] Performed By: #### 2 4344-4 ####[facility] LABCLIA [id number] [place] [address] [place] Lactate [Moles/Vol] 1.0 mmol/L Normal 0.5-2.2 [facility] Comment on above: Order Comment: Speci men Type: VENOUS BLOOD SPECIMENOrdering Facility: [facility] Address: [address] [place] [address] Performed By: #### 2 4344-4 ####[facility] LABCLIA [id number] [address] [place] [address] [place] Methemoglobin (Bld) [Mass fraction] 1.5 % Normal 0.0-1.5 [facility] Comment on above: Order Comment: Speci men Type: VENOUS BLOOD SPECIMENOrdering Facility: [facility] Address: [address] [place] [address] Performed By: #### 2 4344-4 ####[facility] LABCLIA [id number] [place] [id number] [place] O2 THERAPY RA=Room Air Normal [facility] Comment on above: Order Comment: Speci men Type: VENOUS BLOOD SPECIMENOrdering Facility: [facility] Address: [address] [place] [address] Performed By: #### 2 4344-4 ####[facility] LABCLIA [id number] [place] [id number] [place] Oxygen (BldV) [Partial pressure] 33 mm[Hg] Low 35-45 [facility] Comment on above: Order Comment: Speci men Type: VENOUS BLOOD SPECIMENOrdering Facility: [facility] Address: [address] [place] [address] Performed By: #### 2 4344-4 ####[facility] LABCLIA [id number] [address] [address] [place] Oxygen adjusted to patient's actual temperature (BldV) [Partial pressure] 33 mmHg Low 35-45 [facility] Comment on above: Order Comment: Speci men Type: VENOUS BLOOD SPECIMENOrdering Facility: [facility] Address: [address] [place] [address] Performed By: #### 2 4344-4 ####[facility] LABCLIA [id number] [address] [address] [place] Oxygen saturation in Venous blood 57 % Low 60-85 [facility] Comment on above: Order Comment: Speci men Type: VENOUS BLOOD SPECIMENOrdering Facility: [facility] Address: [address] [place] [address] Performed By: #### 2 4344-4 ####[facility] LABCLIA [id number] [place] [address] [place] Oxyhemoglobin (BldV) [Mass fraction] 56 % Low 60-85 [facility] Comment on above: Order Comment: Speci men Type: VENOUS BLOOD SPECIMENOrdering Facility: [facility] Address: [address] [place] [address] Performed By: #### 2 4344-4 ####[facility] LABCLIA [id number] [place] [address] [place] pH (BldV) 7.35 [pH] Normal 7.32-7.42 [facility] Comment on above: Order Comment: Speci men Type: VENOUS BLOOD SPECIMENOrdering Facility: [facility] Address: [address] [place] [address] Performed By: #### 2 4344-4 ####[facility] [id number] [place] [address] [place] pH adjusted to patient's actual temperature (BldV) 7.35 Normal 7.32-7.42 [facility] Comment on above: Order Comment: Speci men Type: VENOUS BLOOD SPECIMENOrdering Facility: [facility] Address: [address] [place] [address] Performed By: #### 2 4344-4 ####[facility] LABCLIA [id number] [place] [address] [place] Potassium [Moles/Vol] 3.1 mmol/L Low 3.5-5.0 [facility] Comment on above: Order Comment: Speci men Type: VENOUS BLOOD SPECIMENOrdering Facility: [facility] Address: [address] [place] [address] Performed By: #### 2 4344-4 ####[facility] LABCLIA [id number] [place] [id number] [place] Sodium [Moles/Vol] 140 mmol/L Normal 136-144 [facility] Comment on above: Order Comment: Speci men Type: VENOUS BLOOD SPECIMENOrdering Facility: [facility] Address: [address] [place] [address] Performed By: #### 2 4344-4 ####[facility] [id number] [place] [address] [place] HCG Preg Ur Qlon 03-17-2025 HCG ( test) Ql (U) Negative Normal Negative [facility] Comment on above: Order Comment: Speci men Type: URINE SPECIMENOrdering Facility: [facility] Address: [address] [place] [address] Result Comment: This test is intended to aid in the early detection of . Very dilute urine samples, as indicated by a low specific gravity, may not contain lead customer service representative levels of hCG. This test detects intact hCG only. This test does not reliably detect hCG degradation products, including free-beta subunit and beta-core fragment. Therefore, this test may show reduced reactivity in urine after 8 weeks gestation. A number of conditions other than , including trophoblastic disease and certain non-trophoblastic neoplasms cause elevated levels of hCG. As with any assay employing mouse antibodies, the possibility exists for interference by human anti-mouse antibodies (HAMA) in the specimen. The test provides a presumptive diagnosis for . Performed By: #### 2 106-3 ####[facility] [id number] [place] [id number] [place] HISTORY PHYSICALon HISTORY PHYSICAL Normal [facility] Iron and Iron binding capaci ty panelon 03-17-2025 Iron [Mass/Vol] 21 ug/dL Low 41-186 [facility] Comment on above: Order Comment: Speci men Type: BLOOD SPECIMENOrdering Facility: [facility] Address: [address] [place] [address] Performed By: #### 5 0190-8, 67010-5, 2276-4, 11196-9 ####[facility] LABCLIA [id number] [address] [address] [place] Iron binding capacity [Mass/Vol] 414 ug/dL High 232-386 [facility] Comment on above: Order Comment: Speci men Type: BLOOD SPECIMENOrdering Facility: [facility] Address: [address] [place] [address] Performed By: #### 5 0190-8, 67594-2, 6-4, 53412-9 ####[facility] [id number] [address] [address] [place] Iron/TIBC [Molar ratio] 5.1 % Low 15.0-57.0 [facility] Comment on above: Order Comment: Speci men Type: BLOOD SPECIMENOrdering Facility: [facility] Address: [address] [place] [address] Performed By: #### 5 0190-8, 80343-6, 2275-4, ####[facility] [id number] [place] [id number] [place] Lipase SerPl-cCncon 03-17-20 25 Lipase [Catalytic activity/Vol] 20 U/L Normal 16-61 [facility] Comment on above: Order Comment: Speci men Type: BLOOD SPECIMENOrdering Facility: [facility] Address: [address] [place] [address] Performed By: #### 2 4323-8, 58231-2, 3040-3, [facility] ####[facility] [id number] [address] [address] [place] Magnesium SerPl-mCncon 03-17 Magnesium [Mass/Vol] 1.9 mg/dL Normal 1.7-2.3 [facility] Comment on above: Order Comment: Speci men Type: BLOOD SPECIMENOrdering Facility: [facility] Address: [address] [place] [address] Performed By: #### 5 0190-8, 19129-9, 2276-4, 31181-3 ####[facility] LABCLIA [id number] [address] [place] [address] [place] Magnesium [Mass/Vol] 2.0 mg/dL Normal 1.7-2.3 [facility] Comment on above: Order Comment: Speci men Type: BLOOD SPECIMENOrdering Facility: [facility] Address: [address] [place] [address] Performed By: #### 2 4323-8, 59375-4, 3040-3, [facility] ####[facility] LABCLIA [id number] [address] [place] [address] [place] Urinalysis complete panel (U )on 03-17-2025 BACTERIA UL 1148.6 uL High Negative [facility] Comment on above: Order Comment: Speci men Type: URINE SPECIMENOrdering Facility: [facility] Address: [address] [place] [address] Performed By: #### 2 4356-8 ####[facility]CL[facility] [id number] [address] [place] [address] [place] Bilirubin Ql (U) Negative Normal Negative [facility] Comment on above: Order Comment: Speci men Type: URINE SPECIMENOrdering Facility: [facility] Address: [address] [place] [address] Performed By: #### 2 4356-8 ####[facility] LABCLIA [id number] [address] [place] [address] [place] Clarity (Unsp spec) Clear Normal Clear [facility] Comment on above: Order Comment: Speci men Type: URINE SPECIMENOrdering Facility: [facility] Address: [address] [place], [place] [address] Performed By: #### 2 4356-8 ####[facility]CLIA [id number] [address] [place] [address] [place] Color (U) Yellow Normal Yellow [facility] Comment on above: Order Comment: Speci men Type: URINE SPECIMENOrdering Facility: [facility] Address: [address] [place] [address] Performed By: #### 2 4356-8 ####[facility]CL[facility] [id number] [address] [place] Epithelial cells LM.HPF (Urine sed) [#/Area] None Seen Normal [facility] Comment on above: Order Comment: Speci men Type: URINE SPECIMENOrdering Facility: [facility] Address: [address] [place] [address] Performed By: #### 2 4356-8 ####[facility]CL[facility] [id number] [address] [place] Glucose Test strip (U) [Mass/Vol] Negative Normal Negative [facility] Comment on above: Order Comment: Speci men Type: URINE SPECIMENOrdering Facility: [facility] Address: [address] [place] [address] Performed By: #### 2 4356-8 ####[facility]CL[facility] [id number] [address] [place] Hemoglobin Ql (U) Negative Normal Negative [facility] Comment on above: Order Comment: Speci men Type: URINE SPECIMENOrdering Facility: [facility] Address: [address] [place] [address] Performed By: #### 2 4356-8 ####[facility]CL[facility] [id number] [place] [address] [place] Hyaline casts (Urine sed) [#/Area] 0 /[LPF] Normal 0 /LPF [facility] Comment on above: Order Comment: Speci men Type: URINE SPECIMENOrdering Facility: [facility] Address: [address] [place] [address] Performed By: #### 2 4356-8 ####[facility] [id number] [address] [place] [address] [place] Ketones Ql (U) 4+ Abnormal Negative [facility] Comment on above: Order Comment: Speci men Type: URINE SPECIMENOrdering Facility: [facility] Address: [address] [place] [address] Performed By: #### 2 4356-8 ####[facility] [id number] [address], [facility] [place] Leukocyte esterase Test strip Ql (U) Negative Normal Negative [facility] Comment on above: Order Comment: Speci men Type: URINE SPECIMENOrdering Facility: [facility] Address: [address] [place] [address] Performed By: #### 2 4356-8 ####[facility] [id number] [place] [address] [place] Nitrite Ql (U) Negative Normal Negative [facility] Comment on above: Order Comment: Speci men Type: URINE SPECIMENOrdering Facility: [facility] Address: [address] [place] [address] Performed By: #### 2 4356-8 ####[facility] [id number] [place] [id number] [place] pH (U) 6.0 [pH] Normal <8.5 [facility] Comment on above: Order Comment: Speci men Type: URINE SPECIMENOrdering Facility: [facility] Address: [address] [place], [place] [address] Performed By: #### 2 4356-8 ####[facility] [id number] [place] [id number] [place] Protein (U) [Mass/Vol] Negative Normal Negative [facility] Comment on above: Order Comment: Speci men Type: URINE SPECIMENOrdering Facility: [facility] Address: [address] [place], [place] [address] Performed By: #### 2 4356-8 ####[facility] [id number] [place] [address] [place] RBC LM.HPF (Urine sed) [#/Area] 0-2 /HPF Normal 0-2 /HPF [facility] Comment on above: Order Comment: Speci men Type: URINE SPECIMENOrdering Facility: [facility] Address: [address] [place] [address] Performed By: #### 2 4356-8 ####[facility] [id number] [place] [address] [place] Specific gravity (U) [Rel density] 1.012 Normal 1.005-1.03 0 [facility] Comment on above: Order Comment: Speci men Type: URINE SPECIMENOrdering Facility: [facility] Address: [address] [place] [address] Performed By: #### 2 4356-8 ####[facility] [id number] [place] [address] [place] Urobilinogen Ql (U) 1.0 EU/dL Normal 0.2-1.0 EU/dL [facility] Comment on above: Order Comment: Speci men Type: URINE SPECIMENOrdering Facility: [facility] Address: [address] [place] [address] Performed By: #### 2 4356-8 ####[facility] [id number] [place] [address] [place] WBC LM.HPF (Urine sed) [#/Area] 0-5 /HPF Normal 0-5 /HPF [facility] Comment on above: Order Comment: Speci men Type: URINE SPECIMENOrdering Facility: [facility] Address: [address] [place] [address] Performed By: #### 2 4356-8 ####[facility] LABIA [id number] [facility] [id number] [id number] [place] XR ABDOMEN 1V SUPINEon 03-17 XR ABDOMEN 1V SUPINE [facility] CBC W Auto Differential pane l (Bld)on 03-16-2025 Basophils (Bld) [#/Vol] 0.03 10*3/uL Normal <0.11 [facility] Comment on above: Order Comment: Speci men Type: BLOOD SPECIMEN Ordering Facility: [facility] Address: [address] [place] [address] Performed By: #### 5 7021-8 #### [facility] CLIA [id number] [address] [place] Basophils/100 WBC (Bld) 0.2 % Normal A [facility] Comment on above: Order Comment: Speci men Type: BLOOD SPECIMEN Ordering Facility: [facility] Address: [address] [place] [address] Performed By: #### 5 7021-8 #### [facility] CLIA [id number] [address] [place] Differential cell count method Nom (Bld) Auto Normal [facility] Comment on above: Order Comment: Speci men Type: BLOOD SPECIMEN Ordering Facility: [facility] Address: [address] [place] [address] Performed By: #### 5 7021-8 #### [facility] CLIA [id number] 1 [place] [address] [place] Eosinophils (Bld) [#/Vol] 0.03 10*3/uL Normal <0.46 [facility] Comment on above: Order Comment: Speci men Type: BLOOD SPECIMEN Ordering Facility: [facility] Address: [address] [place] [address] Performed By: #### 5 7021-8 #### [facility] CLIA [id number] [address] [place] Eosinophils/100 WBC (Bld) 0.2 % Normal [facility] Comment on above: Order Comment: Speci men Type: BLOOD SPECIMEN Ordering Facility: [facility] Address: [address] [place] [address] Performed By: #### 5 7021-8 #### [facility] CLIA [id number] [address] Erythrocyte distribution width (RBC) [Ratio] 17.8 % High 11.5-15.0 [facility] Comment on above: Order Comment: Speci men Type: BLOOD SPECIMEN Ordering Facility: [facility] Address: [address] [place] [address] Performed By: #### 5 7021-8 #### [facility] CLIA [id number] [address] [facility] Hematocrit (Bld) [Volume fraction] 35.5 % Low 36.0-46.0 [facility] Comment on above: Order Comment: Speci men Type: BLOOD SPECIMEN Ordering Facility: [facility] Address: [address] [place] [address] Performed By: #### 5 7021-8 #### [facility] CLIA [id number] [address] [place] Hemoglobin (Bld) [Mass/Vol] 10.7 g/dL Low 11.5-15.5 [facility] Comment on above: Order Comment: Speci men Type: BLOOD SPECIMEN Ordering [facility]: [facility] Address: [address] [place] [address] Performed By: #### 5 7021-8 #### [facility] CLIA [id number] [address] Immature granulocytes (Bld) [#/Vol] 0.05 10*3/uL Normal <0.10 [facility] Comment on above: Order Comment: Speci men Type: BLOOD SPECIMEN Ordering [facility]: [facility] Address: [address] [place] [address] Performed By: #### 5 7021-8 #### [facility] CLIA [id number] [address] [facility] Immature granulocytes/100 WBC (Bld) 0.3 % Normal [facility] Comment on above: Order Comment: Speci men Type: BLOOD SPECIMEN Ordering Facility: [facility] Address: [address] [place] [address] Performed By: #### 5 7021-8 #### [facility] CLIA [id number] [address] [facility] Lymphocytes (Bld) [#/Vol] 0.83 10*3/uL Low 1.00-4.00 [facility] Comment on above: Order Comment: Speci men Type: BLOOD SPECIMEN Ordering [facility]: [facility] Address: [address] [place] [address] Performed By: #### 5 7021-8 #### [facility] CLIA [id number] [address] Lymphocytes/100 WBC (Bld) 5.2 % Normal [facility] Comment on above: Order Comment: Speci men Type: BLOOD SPECIMEN Ordering Facility: [facility] Address: [address] [place] [address] Performed By: #### 5 7021-8 #### [facility] CLIA [id number] [address] [place] MCH (RBC) [Entitic mass] 22.9 pg Low 26.0-34.0 [facility] Comment on above: Order Comment: Speci men Type: BLOOD SPECIMEN Ordering Facility: [facility] Address: [address] [place] [address] Performed By: #### 5 7021-8 #### [facility] CLIA [id number] [address] [place] MCHC (RBC) [Mass/Vol] 30.1 g/dL Low 30.5-36.0 [facility] Comment on above: Order Comment: Speci men Type: BLOOD SPECIMEN Ordering Facility: [facility] Address: [address] [place] [address] Performed By: #### 5 7021-8 #### [facility] CLIA [id number] [address] [place] MCV (RBC) [Entitic vol] 75.9 fL Low 80.0-100.[address] [facility] Comment on above: Order Comment: Speci men Type: BLOOD SPECIMEN Ordering Facility: [facility] Address: [address] [place] [address] Performed By: #### 5 7021-8 #### [facility] CLIA [id number] [address] [place] Monocytes (Bld) [#/Vol] 0.47 10*3/uL Normal <0.87 [facility] Comment on above: Order Comment: Speci men Type: BLOOD SPECIMEN Ordering Facility: [facility] Address: [address] [place] [address] Performed By: #### 5 7021-8 #### [facility] CLIA [id number] [address] Monocytes/100 WBC (Bld) 2.9 % Normal [facility] Comment on above: Order Comment: Speci men Type: BLOOD SPECIMEN Ordering Facility: [facility] Address: [address] [place] [address] Performed By: #### 5 7021-8 #### [facility] CLIA [id number] [address] [place] Neutrophils (Bld) [#/Vol] 14.65 10*3/uL High 1.45-7.50 [facility] Comment on above: Order Comment: Speci men Type: BLOOD SPECIMEN Ordering [facility]: [facility] Address: [address] [place] [address] Performed By: #### 5 7021-8 #### [facility] CLIA [id number] [address] [place] Neutrophils/100 WBC (Bld) 91.2 % Normal [facility] Comment on above: Order Comment: Speci men Type: BLOOD SPECIMEN Ordering [facility]: [facility] Address: [address] [place] [address] Performed By: #### 5 7021-8 #### [facility] CLIA [id number] [address] [place] Nucleated RBC (Bld) [#/Vol] 10*3/uL Normal <0.01 [facility] Comment on above: Order Comment: Speci men Type: BLOOD SPECIMEN Ordering [facility]: [facility] Address: [address] [place] [address] Performed By: #### 5 7021-8 #### [facility] CLIA [id number] [address] [place] Nucleated RBC/100 WBC (Bld) [Ratio] 0.0 /100 WBC Normal [facility] Comment on above: Order Comment: Speci men Type: BLOOD SPECIMEN Ordering [facility]: [facility] Address: [address] [place] [address] Performed By: #### 5 7021-8 #### [facility] CLIA [id number] [address] [place] Platelet mean volume (Bld) [Entitic vol] 8.7 fL Low 9.0-12.7 [facility] Comment on above: Order Comment: Speci men Type: BLOOD SPECIMEN Ordering Facility: [facility] Address: [address] [place] [address] Performed By: #### 5 7021-8 #### [facility] CLIA [id number] [address] Platelets (Bld) [#/Vol] 372 10*3/uL Normal 150-400 [facility] Comment on above: Order Comment: Speci men Type: BLOOD SPECIMEN Ordering Facility: [facility] Address: [address] [place] [address] Performed By: #### 5 7021-8 #### [facility] CLIA [id number] [address] [place] RBC (Bld) [#/Vol] 4.68 10*6/uL Normal 3.90-5.20 [facility] Comment on above: Order Comment: Speci men Type: BLOOD SPECIMEN Ordering Facility: [facility] Address: [address] [place] [address] Performed By: #### 5 7021-8 #### [facility] CLIA [id number] [address] [facility] WBC (Bld) [#/Vol] 16.06 10*3/uL High 3.70-11.00 [facility] Comment on above: Order Comment: Speci men Type: BLOOD SPECIMEN Ordering Facility: [facility] Address: [address] [place] [address] Performed By: #### 5 7021-8 #### [facility] CLIA [id number] [address] Comprehensive metabolic 2000 panelon 03-16-2025 Albumin [Mass/Vol] 4.7 g/dL Normal 3.9-4.9 [facility] Comment on above: Order Comment: Speci men Type: BLOOD SPECIMEN Ordering Facility: [facility] Address: [address] [place] [address] Performed By: #### 1 9123-9, 3040-3, 62956-9 #### [facility] CLIA [id number] [address] [facility] ALP [Catalytic activity/Vol] 63 U/L Normal 34-123 [facility] Comment on above: Order Comment: Speci men Type: BLOOD SPECIMEN Ordering Facility: [facility] Address: [address] [place] [address] Performed By: #### 1 9123-9, 3040-3, 88278-2 #### [facility] CLIA [id number] [address] [place] ALT With P-5'-P [Catalytic activity/Vol] 17 U/L Normal 7-38 [facility] Comment on above: Order Comment: Speci men Type: BLOOD SPECIMEN Ordering [facility]: [facility] Address: [address] [place] [address] Performed By: #### 1 9123-9, 3040-3, 02438-6 #### [facility] CLIA [id number] [address] [place] Anion gap [Moles/Vol] 18 mmol/L High 8-15 [facility] Comment on above: Order Comment: Speci men Type: BLOOD SPECIMEN Ordering Facility: [facility] Address: [address] [place] [address] Performed By: #### 1 9123-9, 3040-3, 27165-8 #### [facility] CLIA [id number] [address] [place] AST With P-5'-P [Catalytic activity/Vol] 16 U/L Normal 13-35 [facility] Comment on above: Order Comment: Speci men Type: BLOOD SPECIMEN Ordering Facility: [facility] Address: [address] [place] [address] Performed By: #### 1 9123-9, 3040-3, 61365-1 #### [facility] CLIA [id number] [address] [place] Bilirubin [Mass/Vol] 0.4 mg/dL Normal 0.2-1.3 [facility] Comment on above: Order Comment: Speci men Type: BLOOD SPECIMEN Ordering Facility: [facility] Address: [address] [place] [address] Performed By: #### 1 9123-9, 3040-3, 93072-6 #### [facility] CLIA [id number] [address] [place] Calcium [Mass/Vol] 9.4 mg/dL Normal 8.5-10.2 [facility] Comment on above: Order Comment: Speci men Type: BLOOD SPECIMEN Ordering Facility: [facility] Address: [address] [place] [address] Performed By: #### 1 9123-9, 3040-3, 66383-2 #### [facility] CLIA [id number] [address] [place] Chloride [Moles/Vol] 102 mmol/L Normal 98-107 [facility] Comment on above: Order Comment: Speci men Type: BLOOD SPECIMEN Ordering Facility: [facility] Address: [address] [place] [address] Performed By: #### 1 9123-9, 0-3, 30985-6 #### [facility] CLIA [id number] [address] CO2 [Moles/Vol] 21 mmol/L Low 22-30 [facility] Comment on above: Order Comment: Speci men Type: BLOOD SPECIMEN Ordering Facility: [facility] Address: [address] [place] [address] Performed By: #### 1 9123-9, 0-3, 43471-5 #### [facility] CLIA [id number] [address] Creatinine [Mass/Vol] 0.77 mg/dL Normal 0.58-0.96 [facility] Comment on above: Order Comment: Speci men Type: BLOOD SPECIMEN Ordering Facility: [facility] Address: [address] [place] [address] Performed By: #### 1 9123-9, 3, 23006-8 #### [facility] CLIA [id number] [address] Creatinine and Glomerular filtration rate.predicted panel (S/P/Bld) 110 mL/min/1.73m??? Normal >=60 [facility] Comment on above: Order Comment: Speci men Type: BLOOD SPECIMEN Ordering Facility: [facility] Address: [address] [place] [address] Result Comment: Cinthya mated Glomerular Filtration Rate (eGFR) is calculated using the 2020 CKD-EPI creatinine equation. This equation utilizes serum creatinine, sex, and age as parameters. The creatinine assay has traceable calibration to isotope dilution-mass spectrometry. Refer to KDIGO guidelines for clinical interpretation. In patients with unstable renal function, e.g. those with acute kidney injury, the eGFR may not accurately reflect actual GFR. Performed By: #### 1 9123-9, 3040-3, 08668-6 #### [facility] CLIA [id number] [address] [place] [address] [place] Glucose [Mass/Vol] 101 mg/dL High 74-99 [facility] Comment on above: Order Comment: Alex mcgovern Type: BLOOD SPECIMEN Ordering Facility: [facility] Address: [address] [place] [address] Result Comment: The [place] Diabetes Association (ADA) provides guidance for cutoff values for fasting glucose and random glucose. The ADA defines fasting as no caloric intake for at least 8 hours. Fasting plasma glucose results between 100 to 125 mg/dL indicate increased risk for diabetes (prediabetes). Fasting plasma glucose results greater than or equal to 126 mg/dL meet the criteria for diagnosis of diabetes. In the absence of unequivocal hyperglycemia, results should be confirmed by repeat testing. In a patient with classic symptoms of hyperglycemia or hyperglycemic crisis, random plasma glucose results greater than or equal to 200 mg/dL meet the criteria for diagnosis of diabetes. Reference: Standards of Medical Care in Diabetes 2016, [place] [employer] Association. Diabetes Care. 2016.39(Suppl 1). Performed By: #### 1 9123-9, 3040-3, 11043-2 #### [facility] CLIA [id number] [address] [place] [address] [place] Potassium [Moles/Vol] 3.0 mmol/L Low 3.7-5.1 [facility] Comment on above: Order Comment: Alex mcgovern Type: BLOOD SPECIMEN Ordering Facility: [facility] Address: [address] [place] [address] Performed By: #### 1 9123-9, 3040-3, 88915-2 #### [facility] CLIA [id number] [address] [place] [address] [place] Protein [Mass/Vol] 8.4 g/dL High 6.3-8.0 [facility] Comment on above: Order Comment: Alex mcgovern Type: BLOOD SPECIMEN Ordering Facility: [facility] Address: [address] [place] [address] Performed By: #### 1 9123-9, 3040-3, 24613-3 #### [facility] CLIA [id number] [address] Sodium [Moles/Vol] 141 mmol/L Normal 136-144 [facility] Comment on above: Order Comment: Speci men Type: BLOOD SPECIMEN Ordering Facility: [facility] Address: [address] [place] [address] Performed By: #### 1 9123-9, 3040-3, 62776-9 #### [facility] CLIA [id number] [address] [place] Urea nitrogen [Mass/Vol] 8 mg/dL Normal 7-21 [facility] Comment on above: Order Comment: Speci men Type: BLOOD SPECIMEN Ordering Facility: [facility] Address: [address] [place] [address] Performed By: #### 1 9123-9, 3040-3, 32544-0 #### [facility] CLIA [id number] [address] ED Triage Noteon 03-16-2025 ED Triage Note HNO ID: [id number] Author: MARLON GEORGE APRN.DRIP MOLDER Service: Emergency Medicine Author Type: Nurse Practitioner Type: ED Triage Notes Filed: 03/16/2025 11:49 Note Text: ED TRIAGE PROVIDER NOTE Patient Name: Addis Torres Service Date: 03/16/25 BRIEF HPI: This is a 25 year old female who presents to the ED with: Abdominal pain nausea and vomiting. Patient states she has chronic pain and has an upcoming appointment with pain management. There is an individualized care plan within the chart which should be noted by rooming provider. Patient has previously been witnessed with self-induced vomiting. BRIEF EXAM: Awake and Alert Non labored breathing No focal neurological deficits INITIAL WORKUP AND DECISION MAKING: Orders Placed This Encounter COMP METABOLIC PANEL CBC + DIFF LIPASE BLD MAGNESIUM BLD Urinalysis w Microscopic, reflex Culture SIGNATURE: Marlon George APRN.DRIP MOLDER Normal [facility] Lipase SerPl-cCncon 03-16-20 25 Lipase [Catalytic activity/Vol] 18 U/L Normal 16-61 [facility] Comment on above: Order Comment: Speci men Type: BLOOD SPECIMEN Ordering [facility]: [facility] Address: [address] [place] [address] Performed By: #### 1 9123-9, 3040-3, 88715-2 #### [facility] CLIA [id number] [address] Magnesium SerPl-mCncon 03-16 Magnesium [Mass/Vol] 2.0 mg/dL Normal 1.7-2.3 [facility] Comment on above: Order Comment: Speci men Type: BLOOD SPECIMEN Ordering Facility: [facility] Address: [address] [place] [address] Performed By: #### 1 9123-9, 3039-3, 45501-2 #### [facility] CLIA [id number] [address] Urinalysis complete panel (U )on 03-16-2025 Bacteria LM.HPF (Urine sed) [#/Area] Many Abnormal None Seen [facility] Comment on above: Order Comment: Speci men Type: URINE SPECIMEN Ordering [facility]: [facility] Address: [address] [place] [address] Performed By: #### 2 4356-8 #### [facility] CLIA [id number] [address] Bilirubin Ql (U) Negative Normal Negative [facility] Comment on above: Order Comment: Speci men Type: URINE SPECIMEN Ordering Facility: [facility] Address: [address] [place] [address] Performed By: #### 2 4356-8 #### [facility] CLIA [id number] [address] Clarity (Unsp spec) Clear Normal Clear [facility] Comment on above: Order Comment: Speci men Type: URINE SPECIMEN Ordering Facility: [facility] Address: [address] [place] [address] Performed By: #### 2 4356-8 #### [facility] CLIA [id number] [address] Color (U) Light Yellow Normal yellow [facility] Comment on above: Order Comment: Speci men Type: URINE SPECIMEN Ordering Facility: [facility] Address: [address] [place] [address] Performed By: #### 2 4356-8 #### [facility] CLIA [id number] [address] [place] Epithelial cells LM.HPF (Urine sed) [#/Area] Few Normal [facility] Comment on above: Order Comment: Speci men Type: URINE SPECIMEN Ordering Facility: [facility] Address: [address] [place] [address] Result Comment: Few Performed By: #### 2 4356-8 #### [facility] CLIA [id number] [address] [place] Glucose Test strip (U) [Mass/Vol] Negative Normal Trace, Negative [facility] Comment on above: Order Comment: Speci men Type: URINE SPECIMEN Ordering Facility: [facility] Address: [address] [place] [address] Performed By: #### 2 4356-8 #### [facility] CLIA [id number] [address] [place] Hemoglobin Ql (U) Negative Normal Negative, Trace [facility] Comment on above: Order Comment: Speci men Type: URINE SPECIMEN Ordering Facility: [facility] Address: [address] [place] [address] Performed By: #### 2 4356-8 #### [facility] CLIA [id number] [address] [place] Ketones Ql (U) 4+ Abnormal Negative, Trace [facility] Comment on above: Order Comment: Speci men Type: URINE SPECIMEN Ordering Facility: [facility] Address: [address] [place] [address] Performed By: #### 2 4356-8 #### [facility] CLIA [id number] [address] [place] Leukocyte esterase Test strip Ql (U) Negative Normal Negative, 25 Nesha/uL [facility] Comment on above: Order Comment: Speci men Type: URINE SPECIMEN Ordering Facility: [facility] Address: [address] [place] [address] Performed By: #### 2 4356-8 #### [facility] CLIA [id number] [address] STATES [facility] Nitrite Ql (U) Negative Normal Negative [facility] Comment on above: Order Comment: Speci men Type: URINE SPECIMEN Ordering Facility: [facility] Address: [address] [place] [address] Performed By: #### 2 4356-8 #### [facility] CLIA [id number] [address] pH (U) 6.5 [pH] Normal 5.0-8.0 [facility] Comment on above: Order Comment: Speci men Type: URINE SPECIMEN Ordering Facility: [facility] Address: [address] [place] [address] Performed By: #### 2 4356-8 #### [facility] CLIA [id number] [address] STATES [facility] Protein (U) [Mass/Vol] Negative Normal Trace , Negative [facility] Comment on above: Order Comment: Speci men Type: URINE SPECIMEN Ordering Facility: [facility] Address: [address] [place] [address] Performed By: #### 2 4356-8 #### [facility] CLIA [id number] [address] STATES [facility] RBC LM.HPF (Urine sed) [#/Area] 0-3 /HPF Normal 0-3 /HPF [facility] Comment on above: Order Comment: Speci men Type: URINE SPECIMEN Ordering Facility: [facility] Address: [address] [place] [address] Performed By: #### 2 4356-8 #### [facility] CLIA [id number] [address] Specific gravity (U) [Rel density] 1.020 Normal 1.005-1.03 0 [facility] Comment on above: Order Comment: Speci men Type: URINE SPECIMEN Ordering Facility: [facility] Address: [address] [place] [address] Performed By: #### 2 4356-8 #### [facility] CLIA [id number] [address] [place] Urobilinogen Ql (U) Normal Normal Normal [facility] Comment on above: Order Comment: Speci men Type: URINE SPECIMEN Ordering Facility: [facility] Address: [address] [place] [address] Performed By: #### 2 4356-8 #### [facility] CLIA [id number] [address] [place] WBC LM.HPF (Urine sed) [#/Area] 0-5 /HPF Normal 0-5 /HPF [facility] Comment on above: Order Comment: Speci men Type: URINE SPECIMEN Ordering Facility: [facility] Address: [address] [place] [address] Performed By: #### 2 4356-8 #### [facility] CLIA [id number] [address] [place] [id number] 03-15-2025 [id number] Normal [facility] BASIC METABOLIC PANELon 07-0 Anion gap [Moles/Vol] 14 mmol/L High 3-13 [facility] Comment on above: Performed By: #### L AB103, LAB15, LAB20, LAB99, [id number] ####[employer] Supervisor: KIMBERLY VIRGEN ([phone])[facility] ([facility])[address] [place] [address] Calcium [Mass/Vol] 10.0 mg/dL Normal 8.4-10.2 [facility] Comment on above: Performed By: #### L AB103, LAB15, LAB20, LAB99, [id number] ####[employer] Supervisor: KIMBERLY VIRGEN ([phone])[facility] ([facility])[address] [place] [address] [place] Chloride [Moles/Vol] 101 mmol/L Normal 98-107 [facility] Comment on above: Performed By: #### L AB103, LAB15, LAB20, LAB99, [id number] ####[employer] Supervisor: KIMBERLY VIRGEN ([phone])[facility])[address] [place] [address] CO2 [Moles/Vol] 22 mmol/L Normal 22-29 [facility] Comment on above: Performed By: #### L AB103, LAB15, LAB20, LAB99, [id number] ####[employer] Supervisor: KIMBERLY VIRGEN ([phone])[facility])[address] [place] [address] Creatinine [Mass/Vol] 0.88 mg/dL Normal 0.57-1.11 [facility] Comment on above: Performed By: #### L AB103, LAB15, LAB20, LAB99, [id number] ####[employer] Supervisor: KIMBERLY VIRGEN ([phone])[facility])[address] [place] [address] GLOMERULAR FILTRATION RATE ML/MIN/1.73 SQ M.PREDICTED >90.0 Normal >60.0 [facility] Comment on above: Result Comment: Calc ulation based on the Chronic Kidney Disease Epidemiology Collaboration (CKD-EPI) equation refit without adjustment for race Performed By: #### L AB103, LAB15, LAB20, LAB99, [id number] ####[employer] Supervisor: KIMBERLY VIRGEN ([phone])[facility])[address] [place] [address] [place] Glucose [Mass/Vol] 151 mg/dL High 74-100 [facility] Comment on above: Performed By: #### L AB103, LAB15, LAB20, LAB99, [id number] ####[employer] Supervisor: KIMBERLY VIRGEN ([phone])[facility])[address] [place] [address] [place] Potassium [Moles/Vol] 3.0 mmol/L Low 3.5-5.1 [facility] Comment on above: Result Comment: [facility] potassium values may be up to 0.5 mmol/L lower than serum values. Performed By: #### L AB103, LAB15, LAB20, LAB99, [id number] ####[employer] Supervisor: KIMBERLY VIRGEN ([phone])[address] Sodium [Moles/Vol] 137 mmol/L Normal 136-145 [facility] Comment on above: Performed By: #### L AB103, LAB15, LAB20, LAB99, [id number] ####[employer] Supervisor: KIMBERLY VIRGEN ([phone])[facility] ([facility])[address] [place] [address] Urea nitrogen [Mass/Vol] 9 mg/dL Normal 8-21 [facility] Comment on above: Performed By: #### L AB103, LAB15, LAB20, LAB99, [id number] ####[employer] Supervisor: KIMBERLY VIRGEN ([phone])[address] Basic metabolic 1998 panelon 03-15-2025 Anion gap [Moles/Vol] 14 mmol/L High 3 - 13 mmol/L [facility] Calcium [Mass/Vol] 10 mg/dL 8.4 - 10. 2 mg/dL [facility] Chloride [Moles/Vol] 101 mmol/L 98 - 10 7 mmol/L [facility] CO2 [Moles/Vol] 22 mmol/L 22 - 29 mmol/L [facility] Creatinine [Mass/Vol] 0.88 mg/dL 0.57 - 1.11 mg/dL [facility] GFR/1.73 sq M.predicted (S/P/Bld) [Vol rate/Area] - PINF [facility] Comment on above: Calculation based on the Chronic Kidney Disease Epidemiology Collaboration (CKD-EPI) equation refit without adjustment for race Glucose [Mass/Vol] 151 mg/dL High 74 - 100 mg/dL [facility] Potassium [Moles/Vol] 3 mmol/L Low 3.5 - 5.1 mmol/L [facility] Comment on above: Plasma potassium yuli ues may be up to 0.5 mmol/L lower than serum values. Sodium [Moles/Vol] 137 mmol/L 136 - 145 mmol/L [facility] Urea nitrogen [Mass/Vol] 9 mg/dL 8 - 21 mg/dL [facility] CBC W Auto Differential pane l (Bld)Ordered By: Daniel Barreto on 03-15-2025 Erythrocyte distribution width (RBC) [Ratio] 17.7 % High 11.5 - 15.0 % [facility] Hematocrit (Bld) [Volume fraction] 33.1 % Low 35.0 - 47.0 % [facility] Hemoglobin (Bld) [Mass/Vol] 10.3 g/dL Low 11.7 - 16.0 g/dL [facility] Interpretation and review of laboratory results Abnormal [facility] MCH (RBC) [Entitic mass] 22.9 pg Low 26. 0 - 34.0 pg [facility] MCHC (RBC) [Mass/Vol] 31.1 % 30.5 - 36.0 % [facility] MCV (RBC) [Entitic vol] 73.6 fL Low 77.0 - 99.0 fL [facility] Platelet mean volume (Bld) [Entitic vol] 9 fL 9.0 - 12.7 fL [facility] Platelets (Bld) [#/Vol] 364 10*3/uL 140 - 440 10*3/uL [facility] RBC (Bld) [#/Vol] 4.5 10*6/uL 3.80 - 5.20 10*6/uL [facility] WBC (Bld) [#/Vol] 10.1 10*3/uL 3.6 - 10.7 10*3/uL [facility] CBC WITH AUTO DIFFERENTIALon 03-15-2025 Erythrocyte distribution width (RBC) [Ratio] 17.7 % High 11.5-15.0 [facility] Comment on above: Performed By: #### L [id number], [id number] ####[employer] Supervisor: KIMBERLY VIRGEN ([phone])[facility])[address] [place] [address] Hematocrit (Bld) [Volume fraction] 33.1 % Low 35.0-47.0 [facility] Comment on above: Performed By: #### L [id number], [id number] ####[employer] Supervisor: KIMBERLY VIRGEN ([phone])[facility] ([facility] Hemoglobin (Bld) [Mass/Vol] 10.3 g/dL Low 11.7-16.0 [facility] Comment on above: Performed By: #### L [id number], [id number] ####[employer] Supervisor: KIMBERLY VIRGEN ([phone])[facility])[address] [place] [address] MCH (RBC) [Entitic mass] 22.9 pg Low 26.0-34.0 [facility] Comment on above: Performed By: #### L [id number], [id number] ####[employer] Supervisor: KIMBERLY VIRGEN ([phone])[address] MCHC 31.1 % Normal 30.5-36.0 [facility] Comment on above: Performed By: #### L [id number], [id number] ####[employer] Supervisor: KIMBERLY VIRGEN ([phone])[facility] ([facility])[address] [place] [address] MCV (RBC) [Entitic vol] 73.6 fL Low 77.0-99.0 [facility] Comment on above: Performed By: #### L [id number], [id number] ####[employer] Supervisor: KIMBERLY VIRGEN ([phone])[address] Platelet mean volume (Bld) [Entitic vol] 9.0 fL Normal 9.0-12.7 [facility] Comment on above: Performed By: #### L [id number], [id number] ####[employer] Supervisor: KIMBERLY VIRGEN ([phone])[facility])[address] [place] [address] Platelets (Bld) [#/Vol] 364 10*3/uL Normal 140-440 [facility] Comment on above: Performed By: #### L [id number], [id number] ####[employer] Supervisor: KIMBERLY [phone])[facility])[address] [place] [address] RBC (Bld) [#/Vol] 4.50 10*6/uL Normal 3.80-5.20 [facility] Comment on above: Performed By: #### L [id number], [id number] ####[employer] Supervisor: KIMBERLY VIRGEN ([phone])[facility] [place] [address] WBC (Bld) [#/Vol] 10.1 10*3/uL Normal 3.6-10.7 [facility] Comment on above: Performed By: #### L [id number], [id number] ####[employer] Supervisor: KIMBERLY VIRGEN ([phone])[facility])[address] [place] [address] ECG 12-LEADon 03-15-2025 ECG 12-LEAD IMPRESSION: Sinus rhythm Electronically Signed On 03-15-2025 09:57:57 EDT by Eduardo Haile [facility] ED Nursing Noteon 03-15-2025 ED Nursing Note Pt taken by charge, RN to CDU. Normal [facility] ED Nursing Note Ketamine administrat ion pharmacy log completed and bedside with pt belongings. Normal [facility] HCG QUANTITATIVE BLOODon HCG QUANTITATIVE <2.5 Normal Females <5 [facility] Comment on above: Result Comment: RILEY Bass COMMENTS:Values in should double every 2 to 3 days for the first 6 weeks. Elevated concentrations of human chorionic gonadotropin (hCG) measured in the first trimester of are observed in normal , but may serve as an indication of chorionic carcinoma, hydatiform mole, or multiple . Decreasing hCG concentrations indicate threatened or missed , recent termination of , ectopic , gestosis or intrauterine . Remedios- and postmenopausal females may have detectable hCG concentrations (< or = to 14 mIU/mL) due to pituitary production of hCG. Serum follicle-stimulating hormone measurement may aid in ruling-out in this population. Cutoffs of greater than 20 to 45 mIU/mL have been suggested and are method dependent. False-elevations (called phantom human chorionic gonadotropin: hCG) may occur with patients who have human antianimal or heterophilic antibodies. Some specimens may not dilute linearly due to abnormal forms of hCG. Elevated hCG concentrations not associated with are found in patients with other diseases such as tumors of the germ cells, ovaries, bladder, pancreas, stomach, lungs, and liver. This test is not intended to detect or monitor tumors or gestational trophoblastic disease. Performed By: #### L AB103, LAB15, LAB20, LAB99, [id number] ####[employer] Supervisor: KIMBERLY VIRGEN ([phone])[facility])[address] [place] [address] HEPATIC FUNCTION PANELon Albumin [Mass/Vol] 4.7 g/dL Normal 3.5-5.0 [facility] Comment on above: Performed By: #### L AB103, LAB15, LAB20, LAB99, [id number] ####[employer] Supervisor: KIMBERLY VIRGEN ([phone])[address] ALP [Catalytic activity/Vol] 63 U/L Normal 40-150 [facility] Comment on above: Performed By: #### L AB103, LAB15, LAB20, LAB99, [id number] ####[employer] Supervisor: KIMBERLY VIRGEN ([phone])[address] ALT [Catalytic activity/Vol] 16 U/L Normal <30 [facility] Comment on above: Performed By: #### L AB103, LAB15, LAB20, LAB99, [id number] ####[employer] Supervisor: KIMBERLY VIRGEN ([phone])[facility])[address] [place] [address] AST [Catalytic activity/Vol] 16 U/L Normal <34 [facility] Comment on above: Performed By: #### L AB103, LAB15, LAB20, LAB99, [id number] ####[employer] Supervisor: KIMBERLY VIRGEN ([phone])[facility])[address] [place] [address] Bilirubin [Mass/Vol] 0.5 mg/dL Normal <1.2 [facility] Comment on above: Performed By: #### L AB103, LAB15, LAB20, LAB99, [id number] ####[employer] Supervisor: KIMBERLY VIRGEN ([phone])[address] Bilirubin.indirect [Mass/Vol] 0.2 mg/dL Normal <0.5 [facility] Comment on above: Performed By: #### L AB103, LAB15, LAB20, LAB99, [id number] ####[employer] Supervisor: KIMBERLY VIRGEN ([phone])[facility])[address] [place] [address] Protein [Mass/Vol] 9.0 g/dL High 6.4-8.3 [facility] Comment on above: Result Comment: Seru m protein values are higher than plasma values. Samples from recumbent persons are lower by up to 0.5 g/dL as compared to ambulatory persons. After 60 years values are lower by up to 0.2 g/dL. Performed By: #### L AB103, LAB15, LAB20, LAB99, [id number] ####[employer] Supervisor: KIMBERLY VIRGEN ([phone])[address] Hepatic function 2000 panelo n 03-15-2025 Albumin [Mass/Vol] 4.7 g/dL 3.5 - 5.0 g/dL [facility] ALP [Catalytic activity/Vol] 63 U/L 40 - 150 U/L [facility] ALT [Catalytic activity/Vol] 16 U/L NINF - 30 U/L [facility] AST [Catalytic activity/Vol] 16 U/L NINF - 34 U/L [facility] Bilirubin [Mass/Vol] 0.5 mg/[facility]/dL [facility] Bilirubin.conjugated [Mass/Vol] 0.2 mg/dL [facility] 0.[facility] mg/dL [facility] Protein [Mass/Vol] 9 g/dL High 6.4 - 8.3 g/dL [facility] Comment on above: Serum protein values are higher than plasma values. Samples from recumbent persons are lower by up to 0.5 g/dL as compared to ambulatory persons. After 60 years values are lower by up to 0.2 g/dL. LACTIC ACID WITH REFLEXon Lactate [Moles/Vol] 1.7 mmol/L Normal 0.5-2.2 [facility] Comment on above: Performed By: #### L [id number] ####Paper [employer] Supervisor: KIMBERLY VIRGEN ([phone])[facility] ([facility])[address] [place] [address] LIPASEon 03-15-2025 Lipase [Catalytic activity/Vol] 14 U/L Normal <55 [facility] Comment on above: Performed By: #### L AB103, LAB15, LAB20, LAB99, [id number] ####Paper [employer] Supervisor: KIMBERLY VIREGN ([phone])[facility] ([facility])[address] [place] [address] Laboratory - Chemistry and C hemistry - challengeon 03-15-2025 HCG.beta subunit Qn Females <5 mIU/mL [facility] Lipase [Catalytic activity/Vol] 14 U/L NINF - 55 U/L [facility] Magnesium [Mass/Vol] 1.7 mg/dL 1.6 - 2 .6 mg/dL [facility] Lactate [Moles/Vol] 1.7 mmol/L 0.5 - 2. 2 mmol/L [facility] Laboratory - Hematology and Cell countson 03-15-2025 Anisocytosis Ql (Bld) Slight Abnormal (none) [facility] Band form neutrophils (Bld) [#/Vol] 0.1 10*3/uL High NINF - 0.0 10*3/uL [facility] Band form neutrophils/100 WBC (Bld) 1 % High NINF - 0 % [facility] Hypochromia Ql (Bld) Slight Abnormal (none) [facility] Lymphocytes (Bld) [#/Vol] 0.4 10*3/uL Low 1.0 - 4.3 10*3/uL [facility] Lymphocytes/100 WBC (Bld) 4 % Low 15 - 45 % [facility] Microcytes Ql (Bld) Slight Abnormal (none) [facility] Monocytes (Bld) [#/Vol] 0.4 10*3/uL 0.0 - 0.9 10*3/uL [facility] Monocytes/100 WBC (Bld) 4 % Low 5 - 13 % [facility] Neutrophils (Bld) [#/Vol] 9.3 10*3/uL High 1.8 - 7.5 10*3/uL [facility] Ovalocytes LM Ql (Bld) Slight Abnormal (none) [facility] Poikilocytosis LM Ql (Bld) Slight Abnormal (none) [facility] RBC morphology finding Nom (Bld) abnormal [facility] Segmented neutrophils/100 WBC (Bld) 91 % High 38 - 82 % [facility] Stomatocytes LM Ql (Bld) Slight Abnormal (none) [facility] MAGNESIUMon 03-15-2025 Magnesium [Mass/Vol] 1.7 mg/dL Normal 1.6-2.6 [facility] Comment on above: Result Comment: RILEY Bass COMMENTS:Higher values can be expected in females during menses. Performed By: #### L AB103, LAB15, LAB20, LAB99, [id number] ####Paper [employer] Supervisor: KIMBERLY VIRGEN ([phone])[facility])[address] [place] [address] MANUAL DIFFERENTIAL (CELLAVI NAZIA)on 03-15-2025 ANISOCYTOSIS PRESENCE IN BLOOD BY LIGHT MICROSCOPY Slight Abnormal (none) [facility] Comment on above: Performed By: #### L [id number], [id number] ####Paper [employer] Supervisor: KIMBERLY VIRGEN ([phone])[facility])[address] [place] [address] BAND NEUTROPHILS TOTAL PER COUNTED LEUKOCYTES BY MANUAL COUNT 1 Normal [facility] Comment on above: Performed By: #### L [id number], [id number] ####Paper [employer] Supervisor: KIMBERLY VIRGEN ([phone])[facility])[address] [place] [address] [place] BANDS (10*3/UL) IN BLOOD-CELLAVISION 0.1 10*3/uL High <=0.0 [facility] Comment on above: Performed By: #### L [id number], [id number] ####Paper [employer] Supervisor: KIMBERLY VIRGEN ([phone])[facility])[address] [place] [address] [place] BASOPHILS TOTAL PER COUNTED LEUKOCYTES BY MANUAL COUNT Normal [facility] Comment on above: Performed By: #### L [id number], [id number] ####Paper [employer] Supervisor: KIMBERLY VIRGEN ([phone])[facility] ([facility])[address] [place] [address] BLASTS TOTAL PER COUNTED LEUKOCYTES BY MANUAL COUNT Normal [facility] Comment on above: Performed By: #### L [id number], [id number] ####Paper [employer] Supervisor: KIMBERLY VIRGEN ([phone])[facility] ([facility])[address] [place] [address] EOSINOPHILS TOTAL PER COUNTED LEUKOCYTES BY MANUAL COUNT Normal [facility] Comment on above: Performed By: #### L [id number], [id number] ####Paper [employer] Supervisor: KIMBERLY VIRGEN ([phone])[facility] ([facility])[address] [place] [address] HYPOCHROMIA (PRESENCE) IN BLOOD BY LIGHT MICROSCOPY Slight Abnormal (none) [facility] Comment on above: Performed By: #### L [id number], [id number] ####[employer] Supervisor: KIMBERLY VIRGEN ([phone])[facility])[address] [place] [address] LYMPHOCYTES (10*3/UL) IN BLOOD-CELLAVISION 0.4 10*3/uL Low 1.0-4.3 [facility] Comment on above: Performed By: #### L [id number], [id number] ####Paper [employer] Supervisor: KIMBERLY VIRGEN ([phone])[facility] ([facility])[address] [place] [address] [place] LYMPHOCYTES TOTAL PER COUNTED LEUKOCYTES BY MANUAL COUNT 4 Normal [facility] Comment on above: Performed By: #### L [id number], [id number] ####Paper Products Supervisor: KIMBERLY VIRGEN ([phone])[facility])[address] [place] [address] [place] LYMPHOCYTES/100 LEUKOCYTES IN BLOOD-CELLAVISION 4 % Low 15-45 [facility] Comment on above: Performed By: #### L [id number], [id number] ####Paper Products Supervisor: KIMBERLY VIRGEN ([phone])[facility] ([facility])[address] [place] [address] METAMYELOCYTES TOTAL PER COUNTED LEUKOCYTES BY MANUAL COUNT Normal [facility] Comment on above: Performed By: #### L [id number], [id number] ####Paper [employer] Supervisor: KMIBERLY VIRGEN ([phone])[facility])[address] [place] [address] MICROCYTES (PRESENCE) IN BLOOD BY LIGHT MICROSCOPY Slight Abnormal (none) [facility] Comment on above: Performed By: #### L [id number], [id number] ####Paper [employer] Supervisor: KIMBERLY VIRGEN ([phone])[facility])[address] [place] [address] MONOCYTES (10*3/UL) IN BLOOD-CELLAVISION 0.4 10*3/uL Normal 0.0-0.9 [facility] Comment on above: Performed By: #### L [id number], [id number] ####Paper [employer] Supervisor: KIMBERLY VIRGEN ([phone])[facility] ([facility])[address] [place] [address] [place] MONOCYTES TOTAL PER COUNTED LEUKOCYTES BY MANUAL COUNT 4 Normal [facility] Comment on above: Performed By: #### L [id number], [id number] ####Paper [employer] Supervisor: KIMBERLY VIRGEN ([phone])[facility])[address] [place] [address] [place] MONOCYTES/100 LEUKOCYTES IN BLOOD-PEDRO 4 % Low 5-13 [facility] Comment on above: Performed By: #### L [id number], [id number] ####Paper Products Supervisor: KIMBERLY VIRGEN ([phone])[facility])[address] [place] [address] [place] MYELOCYTES COUNTED BY MANUAL COUNT Normal [facility] Comment on above: Performed By: #### L [id number], [id number] ####Paper [employer] Supervisor: KIMBERLY [phone])[facility] ([facility])[address] [place] [address] [place] NEUTROPHILS BAND FORM/100 LEUKOCYTES IN BLOOD-CELLAVISI 1 % High <=0 [facility] Comment on above: Performed By: #### L [id number], [id number] ####Paper Products Supervisor: KIMBERLY VIRGEN ([phone])[facility] ([facility])[address] [place] [address] [place] NEUTROPHILS TOTAL PER COUNTED LEUKOCYTES BY MANUAL COUNT 91 Normal [facility] Comment on above: Performed By: #### L [id number], [id number] ####Paper Products Supervisor: KIMBERLY VIRGEN ([phone])[facility] ([facility])[address] [place] [address] OVALOCYTES PRESENCE IN BLOOD BY LIGHT MICROSCOPY Slight Abnormal (none) [facility] Comment on above: Performed By: #### L [id number], [id number] ####Paper [employer] Supervisor: KIMBERLY VIRGEN ([phone])[facility] ([facility])[address] [place] [address] [place] POIKILOCYTOSIS (PRESENCE) IN BLOOD BY LIGHT MICROSCOPY Slight Abnormal (none) [facility] Comment on above: Performed By: #### L [id number], [id number] ####Paper [employer] Supervisor: KIMBERLY VIRGEN ([phone])[facility] ([facility])[address] [place] [address] PROMYELOCYTES TOTAL PER COUNTED LEUKOCYTES BY MANUAL COUNT Normal [facility] Comment on above: Performed By: #### L [id number], [id number] ####Paper [employer] Supervisor: KIMBERLY VIRGEN ([phone])[facility] ([facility])[address] [place] [address] [place] RBC MORPHOLOGY IN BLOOD abnormal Normal [facility] Comment on above: Performed By: #### L [id number], [id number] ####Paper [employer] Supervisor: KIMBERLY VIRGEN ([phone])[facility] [place] [address] [place] SEGMENTED NEUTROPHILS (10*3/UL) IN BLOOD-CELLAVISION 9.3 10*3/uL High 1.8-7.5 [facility] Comment on above: Performed By: #### L [id number], [id number] ####Paper Products Supervisor: KIMBERLY VIRGEN ([phone])[facility] ([facility])[address] [place] [address] SEGMENTED NEUTROPHILS/100 LEUKOCYTES-CE 91 % High 38-82 [facility] Comment on above: Performed By: #### L [id number], [id number] ####Paper Products Supervisor: KIMBERLY VIRGEN ([phone])[facility] [place] [address] STOMATOCYTES IN BLOOD BY LIGHT MICROSCOPY Slight Abnormal (none) Former[facility] Comment on above: Performed By: #### L [id number], [id number] ####[employer] Supervisor: KIMBERLY VIRGEN ([phone])[facility])[address] [place] [address] UNCLASSIFIED CELLS TOTAL PER COUNTED LEUKOCYTES BY MANUAL COUNT Normal [facility] Comment on above: Performed By: #### L [id number], [id number] ####[employer] Supervisor: KIMBERLY VIRGEN ([phone])[facility])[address] [place] [address] VARIANT LYMPHOCYTES TOTAL PER COUNTED LEUKOCYTES BY MANUAL COUNT Normal [facility] Comment on above: Performed By: #### L [id number], [id number] ####[employer] Supervisor: KIMBERLY VIRGEN ([phone])[facility])[address] [place] [address] Magnesium [Mass/Vol]on 03-15 Higher values can be expected in females during menses. [facility] Panel InformationOrdered By: Eduardo Haile on 03-15-2025 P [place] 57 degrees [employer] Work Phone: SC Interval 145 ms [employer] Work Phone: QRS [place] 71 degrees [employer] Work Phone: QRSD Interval 105 ms [employer] Work Phone: QT Interval 393 ms [employer] Work Phone: QTC Interval 463 ms [employer] Work Phone: T Wave [place] 62 degrees [employer] Work Phone: [employer] Work Phone: No Panel Informationon 03-15 Sinus rhythm Electronically Signed On 03-15-2025 09:57:57 EDT by Eduardo Haile Eduardo Krishnamurthy MD - 03/15/2025 IMPRESSION: Sinus rhythm Electronically Signed On 03-15-2025 09:57:57 EDT by Eduardo Haile [employer] Atypical Lymphocytes Manual [facility] Bands Manual 1 [facility] Basophils Manual [facility] Blasts Manual [facility] Eosinophils Manual [facility] Interpretation and review of laboratory results Abnormal [facility] Lymphocytes Manual 4 [facility] Metamyelocytes Manual [facility] Monocytes Manual 4 [facility] Myelocytes Manual [facility] Neutrophils Manual 91 [facility] Promyelocytes Manual [facility] Unclassified Cells, Manual [facility] Values in should double every 2 to 3 days for the first 6 weeks. Elevated concentrations of human chorionic gonadotropin (hCG) measured in the first trimester of are observed in normal , but may serve as an indication of chorionic carcinoma, hydatiform mole, or multiple . Decreasing hCG concentrations indicate threatened or missed , recent termination of , ectopic , gestosis or intrauterine . Remedios- and postmenopausal females may have detectable hCG concentrations (< or = to 14 mIU/mL) due to pituitary production of hCG. Serum follicle-stimulating hormone measurement may aid in ruling-out in this population. Cutoffs of greater than 20 to 45 mIU/mL have been suggested and are method dependent. False-elevations (called phantom human chorionic gonadotropin: hCG) may occur with patients who have human antianimal or heterophilic antibodies. Some specimens may not dilute linearly due to abnormal forms of hCG. Elevated hCG concentrations not associated with are found in patients with other diseases such as tumors of the germ cells, ovaries, bladder, pancreas, stomach, lungs, and liver. This test is not intended to detect or monitor tumors or gestational trophoblastic disease. [facility] [facility] Interpretation and review of laboratory results Abnormal [facility] Interpretation and review of laboratory results Normal [facility] Interpretation and review of laboratory results Normal [facility] Nursing Noteon 03-15-2025 Nursing Note Patient was given discharge instructions by Bindu QUEVEDO. Patient opted to walk to discharge area with significant other. Normal [facility] Vital signsOrdered By: Eduardo Haile on 03-15-2025 Heart rate 83 /min bpm [facility] [employer] Work Phone: XR Abdomen Single viewon No acute abnormality identified. Report Dictated on Electronically Signed By: Boy Ny MD Electronically Signed Date/Time: 03/15/2025 11:[address] [facility] Patient Name: ADDIS TORRES : 2000 Exam Date/Time: 03/15/2025 11:36 Procedure: XR ABDOMEN 1 VIEW Ordering Provider: TOSCANO JASON Reason For Exam: ABDOMINAL PAIN EXAMINATION: XR abdomen AP. EXAM DATE & TIME: 03/15/2025 11:36 AM EDT INDICATION: ABDOMINAL PAIN ADDITIONAL INFORMATION: 25-year-old female with abdominal pain presents for evaluation COMPARISON: Abdominal radiographs dated 09/27/[address] abdomen pelvis dated 09/15/2024 TECHNIQUE: Frontal views of the abdomen were obtained. FINDINGS: There is no evidence for pneumobilia or portal venous gas. No pathological intra-abdominal calcification is present. The bowel gas pattern is nonspecific. No acute osseous abnormality is evident. Surgical clips project over the right upper quadrant and over the lateral right abdomen. [facility] Boy Ny MD - 03/15/2025 Patient Name: ADDIS TORRES : 2000 Exam Date/Time: 03/15/2025 11:36 Procedure: XR ABDOMEN 1 VIEW Ordering Provider: TOSCANO JASON Reason For Exam: ABDOMINAL PAIN EXAMINATION: XR abdomen AP. EXAM DATE & TIME: 03/15/2025 11:36 AM EDT INDICATION: ABDOMINAL PAIN ADDITIONAL INFORMATION: 25-year-old female with abdominal pain presents for evaluation COMPARISON: Abdominal radiographs dated 09/27/[address] abdomen pelvis dated 09/15/2024 TECHNIQUE: Frontal views of the abdomen were obtained. FINDINGS: There is no evidence for pneumobilia or portal venous gas. No pathological intra-abdominal calcification is present. The bowel gas pattern is nonspecific. No acute osseous abnormality is evident. Surgical clips project over the right upper quadrant and over the lateral right abdomen. IMPRESSION: No acute abnormality identified. Report Dictated on Electronically Signed By: Boy Ny MD Electronically Signed Date/Time: 03/15/2025 11:55 AM EDT [facility] Radiology Study observation (narrative) [facility] XR Abdomen Single viewOrdere d By: Boy Ny on 03-15-2025 [facility] [employer] Work Phone: ED Provider Noteon ED Provider Note Normal [facility] .Auto Diffon 03-12-2025 Basophil, Absolute 0.0 10 3/mcL Normal 0.0-0.3 [facility] Comment on above: Performed By: #### A DIFF, CMP, GFR, CBC, ANEU, MG, MDW, LIP #### [address] [address] Basophils/100 WBC (Bld) 0.4 % Normal 0.0-2.5 [facility] Comment on above: Performed By: #### A DIFF, CMP, GFR, CBC, ANEU, MG, MDW, LIP #### [address] [address] Eosinophil, Absolute 0.0 10 3/mcL Normal 0.0-0.7 [facility] Comment on above: Performed By: #### A DIFF, CMP, GFR, CBC, ANEU, MG, MDW, LIP #### [address] [address] Eosinophils/100 WBC (Bld) 0.1 % Normal 0.0-6.0 [facility] Comment on above: Performed By: #### A DIFF, CMP, GFR, CBC, ANEU, MG, MDW, LIP #### [address] [address] Lymphocyte, Absolute 2.1 10 3/mcL Normal 0.9-4.3 [facility] Comment on above: Performed By: #### A DIFF, CMP, GFR, CBC, ANEU, MG, MDW, LIP #### [address] [address] Lymphocytes/100 WBC (Bld) 19.6 % Low 20.0-40.0 [facility] Comment on above: Performed By: #### A DIFF, CMP, GFR, CBC, ANEU, MG, MDW, LIP #### [address] [address] Monocyte, Absolute 0.6 10 3/mcL Normal 0.1-1.4 [facility] Comment on above: Performed By: #### A DIFF, CMP, GFR, CBC, ANEU, MG, MDW, LIP #### [address] [address] Monocytes/100 WBC (Bld) 5.9 % Normal 2.0-13.0 [facility] Comment on above: Performed By: #### A DIFF, CMP, GFR, CBC, ANEU, MG, MDW, LIP #### [address] [address] Neutrophils/100 WBC (Bld) 74.0 % Normal 50.0-75.0 [facility] Comment on above: Performed By: #### A DIFF, CMP, GFR, CBC, ANEU, MG, MDW, LIP #### [address] [address] .GFRon 03-12-2025 Estimated Glomerular Filtration Rate 111 ml/min/1.73sqm Normal [facility] Comment on above: Result Comment: Stages of Chronic Kidney Disease (CKD) Stage Description eGFR(ml/min/1.73 sq.m.) CKD 1 Normal kidney function or >=90 normal kindney function with possible kidney damage (ex. Proteinuria) CKD 2 Kidney damage with mild loss 60-89 of kidney function CKD 3a Mild to moderate loss of kidney 45-59 function CKD 3b Moderate to severe loss of 30-44 of kindey function CKD 4 Severe loss of kidney function 15-29 CKD 5 Kidney failure <15 Note: (go live 2024) the eGFR calculation was updated to the 2020 CKD-EPI creatinine equation without a race factor to calculate the eGFR results. Performed By: #### A DIFF, CMP, GFR, CBC, ANEU, MG, MDW, LIP #### [place] [id number] .MDWon 03-12-2025 Monocyte Distribution Width 17.43 Normal 0.00-20.00 [facility] Comment on above: Result Comment: For ED adult patients suspected of sepsis, MDW<=20.0 does not rule out sepsis or risk of sepsis Performed By: #### A DIFF, CMP, GFR, CBC, ANEU, MG, MDW, LIP #### [place] [address] .NEUABSon 03-12-2025 Neutrophil, Absolute 7.9 10 3/mcL Normal 2.3-8.1 [facility] Comment on above: Performed By: #### A DIFF, CMP, GFR, CBC, ANEU, MG, MDW, LIP #### [place] [id number] CBCon 03-12-2025 Erythrocyte distribution width (RBC) [Ratio] 18.3 % High 11.5-15.5 [facility] Comment on above: Performed By: #### A DIFF, CMP, GFR, CBC, ANEU, MG, MDW, LIP #### [place] [address] Hematocrit (Bld) [Volume fraction] 34.2 % Normal 34.0-46.0 [facility] Comment on above: Performed By: #### A DIFF, CMP, GFR, CBC, ANEU, MG, MDW, LIP #### [place] [address] Hgb 11.1 G/dL Low 12.0-16.0 [facility] Comment on above: Performed By: #### A DIFF, CMP, GFR, CBC, ANEU, MG, MDW, LIP #### [address] [address] MCH (RBC) [Entitic mass] 23.0 pg Low 27.0-33.0 [facility] Comment on above: Performed By: #### A DIFF, CMP, GFR, CBC, ANEU, MG, MDW, LIP #### [address] [address] MCHC 32.4 G/dL Normal 32.0-36.0 [facility] Comment on above: Performed By: #### A DIFF, CMP, GFR, CBC, ANEU, MG, MDW, LIP #### [address] [address] MCV (RBC) [Entitic vol] 71.0 fL Low 80.0-99.0 [facility] Comment on above: Performed By: #### A DIFF, CMP, GFR, CBC, ANEU, MG, MDW, LIP #### [address] [address] Platelet 349 10 3/mcL Normal 150-450 [facility] Comment on above: Performed By: #### A DIFF, CMP, GFR, CBC, ANEU, MG, MDW, LIP #### [address] [address] Platelet mean volume (Bld) [Entitic vol] 6.9 fL Normal 6.6-10.5 [facility] Comment on above: Performed By: #### A DIFF, CMP, GFR, CBC, ANEU, MG, MDW, LIP #### [address] [address] RBC 4.81 10 6/mcL Normal 4.10-5.30 [facility] Comment on above: Performed By: #### A DIFF, CMP, GFR, CBC, ANEU, MG, MDW, LIP #### [address] [address] WBC 10.7 10 3/mcL Normal 4.5-10.8 [facility] Comment on above: Performed By: #### A DIFF, CMP, GFR, CBC, ANEU, MG, MDW, LIP #### [address] [address] CMPon 03-12-2025 Albumin Level 4.3 G/dL Normal 3.5-5.0 [facility] Comment on above: Performed By: #### A DIFF, CMP, GFR, CBC, ANEU, MG, MDW, LIP #### [address] [address] Albumin/Globulin [Mass ratio] 1.0 {ratio} Low 1.1-2.5 [facility] Comment on above: Performed By: #### A DIFF, CMP, GFR, CBC, ANEU, MG, MDW, LIP #### [address] [address] ALP [Catalytic activity/Vol] 65 U/L Normal 40-135 [facility] Comment on above: Performed By: #### A DIFF, CMP, GFR, CBC, ANEU, MG, MDW, LIP #### [address] [address] ALT [Catalytic activity/Vol] 22 U/L Normal 14-59 [facility] Comment on above: Performed By: #### A DIFF, CMP, GFR, CBC, ANEU, MG, MDW, LIP #### [address] [address] AST [Catalytic activity/Vol] 13 U/L Normal 10-40 [facility] Comment on above: Performed By: #### A DIFF, CMP, GFR, CBC, ANEU, MG, MDW, LIP #### [address] [address] Bili Total 0.6 mg/dL Normal 0.2-1.0 [facility] Comment on above: Result Comment: Use of this assay is not recommended for patients undergoing treatment with eltrombopag due to the potential for falsely elevated results. Performed By: #### A DIFF, CMP, GFR, CBC, ANEU, MG, MDW, LIP #### [address] [address] BUN/Creatinine Ratio 14 ratio Normal 7-27 [facility] Comment on above: Performed By: #### A DIFF, CMP, GFR, CBC, ANEU, MG, MDW, LIP #### [address] [address] Calcium [Mass/Vol] 9.2 mg/dL Normal 8.4-10.2 [facility] Comment on above: Performed By: #### A DIFF, CMP, GFR, CBC, ANEU, MG, MDW, LIP #### [place] [address] Chloride [Moles/Vol] 100 mmol/L Normal 98-107 [facility] Comment on above: Performed By: #### A DIFF, CMP, GFR, CBC, ANEU, MG, MDW, LIP #### [place] [address] CO2 [Moles/Vol] 26 mmol/L Normal 22-29 [facility] Comment on above: Performed By: #### A DIFF, CMP, GFR, CBC, ANEU, MG, MDW, LIP #### [place] [address] Creatinine [Mass/Vol] 0.76 mg/dL Normal 0.51-0.95 [facility] Comment on above: Performed By: #### A DIFF, CMP, GFR, CBC, ANEU, MG, MDW, LIP #### [address] [address] Electrolyte Balance 14.0 mEq/L Normal 4.0-15.0 [facility] Comment on above: Performed By: #### A DIFF, CMP, GFR, CBC, ANEU, MG, MDW, LIP #### [address] [address] Globulin 4.4 G/dL Normal 2.7-4.4 [facility] Comment on above: Performed By: #### A DIFF, CMP, GFR, CBC, ANEU, MG, MDW, LIP #### [address] [address] Glucose [Mass/Vol] 122 mg/dL High 70-105 [facility] Comment on above: Performed By: #### A DIFF, CMP, GFR, CBC, ANEU, MG, MDW, LIP #### [place] [id number] [place], [place] [address] Potassium [Moles/Vol] 3.1 mmol/L Low 3.5-5.1 [facility] Comment on above: Performed By: #### A DIFF, CMP, GFR, CBC, ANEU, MG, MDW, LIP #### [address] [address] Sodium [Moles/Vol] 140 mmol/L Normal 136-145 [facility] Comment on above: Performed By: #### A DIFF, CMP, GFR, CBC, ANEU, MG, MDW, LIP #### [address] [address] Total Protein 8.7 G/dL High 6.4-8.2 [facility] Comment on above: Performed By: #### A DIFF, CMP, GFR, CBC, ANEU, MG, MDW, LIP #### [address] [address] Urea nitrogen [Mass/Vol] 11 mg/dL Normal 7-18 [facility] Comment on above: Performed By: #### A DIFF, CMP, GFR, CBC, ANEU, MG, MDW, LIP #### [address] [address] [address] ABD/PELVIS W/ IV CONTRAST ONLYon 03-12-2025 CT ABD/PELVIS W/ IV CONTRAST ONLY ORIGINAL EXAMINATION: CT OF THE ABDOMEN AND PELVIS WITH CONTRAST03/12/2025 3:[address] ABDOMEN/PELVIS WITH CONTRAST TECHNIQUE: CT of the abdomen and pelvis was performed with the administration of intravenous contrast. Multiplanar reformatted images are provided for review. Automated exposure control, iterative reconstruction, and/or weight based adjustment of the mA/kV was utilized to reduce the radiation dose to as low as reasonably achievable. COMPARISON: 12/04/2024 HISTORY: ORDERING SYSTEM PROVIDED HISTORY: Reason for Exam: Abdominal pain, acute, nonlocalized FINDINGS: Limited images of the lower thorax are noncontributory. The liver is normal. The spleen, adrenal glands, and pancreas are within normal limits. The patient is status post cholecystectomy. The kidneys are symmetric in size and excretion. The large and small bowel are normal in caliber. The appendix is normal. No free intraperitoneal fluid or air is identified. There is no lymphadenopathy. The aorta is normal in caliber. The bladder is incompletely distended without focal mass. There is no adnexal mass. There is no visible fracture or aggressive osseous lesion. IMPRESSION: No acute abnormality. Interpreted by: Daniel Amaya MD Preliminary Report By: Daniel Amaya MD Electronically signed By Daniel Amaya MD Dictated Date: 03/12/2025 3:35:47 PM Prelim Date: 03/12/2025 3:37:54 PM Sign Date: 03/12/2025 3:37:54 PM Ordering Provider: MARYANA SALDIVAR Interpreted by: Daniel Amaya MD Preliminary Report By: Daniel Amaya MD Electronically signed By Daniel Amaya MD Dictated Date: 03/12/2025 3:35:47 PM Prelim Date: 03/12/2025 3:37:54 PM Sign Date: 03/12/2025 3:37:54 PM Ordering Provider: MARYANA SALDIVAR Normal [facility]ORY[facility]dered By: Jacklyn Loza on 03-12-2025 Appearance (U) Clear (03/12/25 2:44 PM) Normal Clear AO Auto Urine SS Bilirubin Ql (U) Moderate *ABN* (03/12/25 2:44 PM) Invalid Interpretation Code Negative AO Auto Urine SS Color (U) Yellow (03/12/25 2:44 PM) Normal AO Auto Urine SS Glucose Test strip (U) [Mass/Vol] Negative Normal Negative AO Auto Urine SS Hemoglobin Auto test strip (U) [Mass/Vol] Negative (03/12/25 2:44 PM) Normal Negative AO Auto Urine SS Ketones Ql (U) 80 mg/dL Invalid Interpretation Code Negative AO Auto Urine SS UA Leuk Est Negative (03/12/25 2:44 PM) Normal Negative AO Auto Urine SS UA Nitrite Negative (03/12/25 2:44 PM) Normal Negative AO Auto Urine SS UA pH 6.0 (03/12/25 2:44 PM) Normal 5.0 - 8.0 AO Auto Urine SS UA Protein 30 mg/dL Normal Negative AO Auto Urine SS UA Spec Grav >=1.030 *ABN* (03/12/25 2:44 PM) Invalid Interpretation Code 1.015-1.02 5 AO Auto Urine SS UA Specimen Type Clean Catch (03/12/25 2:44 PM) Normal AO Auto Urine SS UA Urobilinogen 1.0 E.U./dL Normal 0.2-1.0 AO Auto Urine SS LABORATORYOrdered By: SYSTEM SYSTEM on 03-12-2025 Albumin BCP dye [Mass/Vol] 4.3 G/dL Normal 3.5 - 5.0 G/dL AO ADM SS Albumin/Globulin [Mass ratio] 1.0 {ratio} Low 1.1 - 2.5 ratio AO ADM SS ALP [Catalytic activity/Vol] 65 U/L Normal 40 - 135 U/L AO ADM SS ALT With P-5'-P [Catalytic activity/Vol] 22 U/L Normal 14 - 59 U/L AO ADM SS AST With P-5'-P [Catalytic activity/Vol] 13 U/L Normal 10 - 40 U/L AO ADM SS Basophils (Bld) [#/Vol] 0.0 103/mcL Normal 0.0 - 0.3 10^3/mcL AO Workflow SS Basophils/100 WBC (Bld) 0.4 % Normal 0.0 - 2.5 % AO Workflow SS Bilirubin [Mass/Vol] 0.6 mg/dL Normal 0.2 - 1 .0 mg/dL AO ADM SS Comment on above: Interpretive Data: U se of this assay is not recommended for patients undergoing treatment with eltrombopag due to the potential for falsely elevated results. Calcium [Mass/Vol] 9.2 mg/dL Normal 8.4 - 10. 2 mg/dL AO ADM SS Chloride [Moles/Vol] 100 mmol/L Normal 98 - 10 7 mmol/L AO ADM SS CO2 [Moles/Vol] 26 mmol/L Normal 22 - 29 mmol/L AO ADM SS Creatinine [Mass/Vol] 0.76 mg/dL Normal 0.51 - 0.95 mg/dL AO ADM SS Electrolyte Balance 14.0 mEq/L Normal 4.0 - 15 .0 mEq/L AO ADM SS Eosinophil, Absolute 0.0 103/mcL Normal 0.0 - 0 .7 10^3/mcL AO Workflow SS Eosinophils/100 WBC (Bld) 0.1 % Normal 0.0 - 6.0 % AO Workflow SS Erythrocyte distribution width (RBC) [Ratio] 18.3 % High 11.5 - 15.5 % AO Workflow SS Estimated Glomerular Filtration Rate 111 ml/min/1.73sqm Invalid Interpretation Code AO Chemistry S Comment on above: Interpretive Data: Stages of Chronic Kidney Disease (CKD) Stage Description eGFR(ml/min/1.73 sq.m.) CKD 1 Normal kidney function or >=90 normal kindney function with possible kidney damage (ex. Proteinuria) CKD 2 Kidney damage with mild loss 60-89 of kidney function CKD 3a Mild to moderate loss of kidney 45-59 function CKD 3b Moderate to severe loss of 30-44 of kindey function CKD 4 Severe loss of kidney function 15-29 CKD 5 Kidney failure <15 Note: (go live 2024) the eGFR calculation was updated to the 2020 CKD-EPI creatinine equation without a race factor to calculate the eGFR results. Globulin 4.4 G/dL Normal 2.7 - 4.4 G/dL AO ADM SS Glucose [Mass/Vol] 122 mg/dL High 70 - 105 mg/dL AO ADM SS Hematocrit (Bld) [Volume fraction] 34.2 % Normal 34.0 - 46.0 % AO Workflow SS Hemoglobin (Bld) [Mass/Vol] 11.1 G/dL Low 12.0 - 16.0 G/dL AO Workflow SS Lipase [Catalytic activity/Vol] 20 U/L Normal 16 - 77 U/L AO ADM SS Lymphocytes (Bld) [#/Vol] 2.1 103/mcL Normal 0.9 - 4.3 10^3/mcL AO Workflow SS Lymphocytes/100 WBC (Bld) 19.6 % Low 20.0 - 40.0 % AO Workflow SS Magnesium [Mass/Vol] 1.7 mg/dL Low 1.8 - 2 .4 mg/dL AO ADM SS MCH (RBC) [Entitic mass] 23.0 pg Low 27. 0 - 33.0 pg AO Workflow SS MCHC 32.4 G/dL Normal 32.0 - 36.0 G/dL AO Workflow SS MCV (RBC) [Entitic vol] 71.0 fL Low 80.0 - 99.0 fL AO Workflow SS Monocyte distribution width Auto (Bld) [Entitic vol] 17.43 1 Normal 0.00 - 20.00 AO Workflow SS Comment on above: Result Comment: For ED adult patients suspected of sepsis, MDW<=20.0 does not rule out sepsis or risk of sepsis Monocytes (Bld) [#/Vol] 0.6 103/mcL Normal 0.1 - 1.4 10^3/mcL AO Workflow SS Monocytes/100 WBC (Bld) 5.9 % Normal 2.0 - 13.0 % AO Workflow SS Neutrophils (Bld) [#/Vol] 7.9 103/mcL Normal 2.3 - 8.1 10^3/mcL AO Workflow SS Neutrophils/100 WBC (Bld) 74.0 % Normal 50.0 - 75.0 % AO Workflow SS Platelet mean volume (Bld) [Entitic vol] 6.9 fL Normal 6.6 - 10.5 fL AO Workflow SS Platelets (Bld) [#/Vol] 349 103/mcL Normal 150 - 450 10^3/mcL AO Workflow SS Potassium [Moles/Vol] 3.1 mmol/L Low 3.5 - 5.1 mmol/L AO ADM SS Protein [Mass/Vol] 8.7 G/dL High 6.4 - 8.2 G/dL AO ADM SS RBC (Bld) [#/Vol] 4.81 106/mcL Normal 4.10 - 5.30 10^6/mcL AO Workflow SS Sodium [Moles/Vol] 140 mmol/L Normal 136 - 145 mmol/L AO ADM SS Urea nitrogen [Mass/Vol] 11 mg/dL Normal 7 - 18 mg/dL AO ADM SS Urea nitrogen/Creatinine [Mass ratio] 14 ratio Normal 7 - 27 ratio AO ADM SS WBC (Bld) [#/Vol] 10.7 103/mcL Normal 4.5 - 10.8 10^3/mcL AO Workflow SS LIPon 03-12-2025 Lipase Level 20 U/L Normal 16-77 [facility] Comment on above: Performed By: #### A DIFF, CMP, GFR, CBC, ANEU, MG, MDW, LIP #### [address] [address] MGon 03-12-2025 Magnesium [Mass/Vol] 1.7 mg/dL Low 1.8-2.4 [facility] Comment on above: Performed By: #### A DIFF, CMP, GFR, CBC, ANEU, MG, MDW, LIP #### [address] [address] UAon 03-12-2025 Color (U) Yellow Normal [facility] Comment on above: Performed By: #### A DIFF, CMP, GFR, CBC, ANEU, MG, MDW, LIP #### [address] [address] Glucose (U) [Mass/Vol] Negative Normal Negative [facility] Comment on above: Performed By: #### A DIFF, CMP, GFR, CBC, ANEU, MG, MDW, LIP #### [address] [address] Ketones Ql (U) 80 mg/dL Abnormal Negative [facility] Comment on above: Performed By: #### A DIFF, CMP, GFR, CBC, ANEU, MG, MDW, LIP #### [address] [address] UA Appear Clear Normal Clear [facility] Comment on above: Performed By: #### A DIFF, CMP, GFR, CBC, ANEU, MG, MDW, LIP #### [address] [address] UA Bili Moderate Abnormal Negative [facility] Comment on above: Performed By: #### A DIFF, CMP, GFR, CBC, ANEU, MG, MDW, LIP #### [address] [address] UA Blood Negative Normal Negative [facility] Comment on above: Performed By: #### A DIFF, CMP, GFR, CBC, ANEU, MG, MDW, LIP #### [address] [address] UA Leuk Est Negative Normal Negative [facility] Comment on above: Performed By: #### A DIFF, CMP, GFR, CBC, ANEU, MG, MDW, LIP #### [address] [address] UA Nitrite Negative Normal Negative [facility] Comment on above: Performed By: #### A DIFF, CMP, GFR, CBC, ANEU, MG, MDW, LIP #### [address] [address] UA pH 6.0 Normal 5.0 - 8.0 [facility] Comment on above: Performed By: #### A DIFF, CMP, GFR, CBC, ANEU, MG, MDW, LIP #### [address] [address] UA Protein 30 mg/dL Normal Negative [facility] Comment on above: Performed By: #### A DIFF, CMP, GFR, CBC, ANEU, MG, MDW, LIP #### [address] [address] UA Spec Grav >=1.030 Abnormal 1.015-1.02 5 [facility] Comment on above: Performed By: #### A DIFF, CMP, GFR, CBC, ANEU, MG, MDW, LIP #### [address] [address] UA Specimen Type Clean Catch Normal [facility] Comment on above: Performed By: #### A DIFF, CMP, GFR, CBC, ANEU, MG, MDW, LIP #### [address] [address] UA Urobilinogen 1.0 E.U./dL Normal 0.2-1.0 [facility] Comment on above: Performed By: #### A DIFF, CMP, GFR, CBC, ANEU, MG, MDW, LIP #### [address] [address] .GFRon 03-11-2025 Estimated Glomerular Filtration Rate 110 ml/min/1.73sqm Normal [facility] Comment on above: Result Comment: Stages of Chronic Kidney Disease (CKD) Stage Description eGFR(ml/min/1.73 sq.m.) CKD 1 Normal kidney function or >=90 normal kindney function with possible kidney damage (ex. Proteinuria) CKD 2 Kidney damage with mild loss 60-89 of kidney function CKD 3a Mild to moderate loss of kidney 45-59 function CKD 3b Moderate to severe loss of 30-44 of kindey function CKD 4 Severe loss of kidney function 15-29 CKD 5 Kidney failure <15 Note: (go live 2024) the eGFR calculation was updated to the 2020 CKD-EPI creatinine equation without a race factor to calculate the eGFR results. Performed By: #### A DIFF, CMP, GFR, CBC, ANEU, MG, MDW, LIP #### [address] [address] CMPon 03-11-2025 Albumin Level 4.1 G/dL Normal 3.5-5.0 [facility] Comment on above: Performed By: #### A DIFF, CMP, GFR, CBC, ANEU, MG, MDW, LIP #### [address] [address] Albumin/Globulin [Mass ratio] 1.0 {ratio} Low 1.1-2.5 [facility] Comment on above: Performed By: #### A DIFF, CMP, GFR, CBC, ANEU, MG, MDW, LIP #### [address] [address] ALP [Catalytic activity/Vol] 66 U/L Normal 40-135 [facility] Comment on above: Performed By: #### A DIFF, CMP, GFR, CBC, ANEU, MG, MDW, LIP #### [address] [address] ALT [Catalytic activity/Vol] 21 U/L Normal 14-59 [facility] Comment on above: Performed By: #### A DIFF, CMP, GFR, CBC, ANEU, MG, MDW, LIP #### [address] [address] AST [Catalytic activity/Vol] 16 U/L Normal 10-40 [facility] Comment on above: Performed By: #### A DIFF, CMP, GFR, CBC, ANEU, MG, MDW, LIP #### [address] [address] Bili Total 0.4 mg/dL Normal 0.2-1.0 [facility] Comment on above: Result Comment: Use of this assay is not recommended for patients undergoing treatment with eltrombopag due to the potential for falsely elevated results. Performed By: #### A DIFF, CMP, GFR, CBC, ANEU, MG, MDW, LIP #### [address] [address] BUN/Creatinine Ratio 14 ratio Normal 7-27 [facility] Comment on above: Performed By: #### A DIFF, CMP, GFR, CBC, ANEU, MG, MDW, LIP #### [address] [address] Calcium [Mass/Vol] 8.9 mg/dL Normal 8.4-10.2 [facility] Comment on above: Performed By: #### A DIFF, CMP, GFR, CBC, ANEU, MG, MDW, LIP #### [address] [address] Chloride [Moles/Vol] 102 mmol/L Normal 98-107 [facility] Comment on above: Performed By: #### A DIFF, CMP, GFR, CBC, ANEU, MG, MDW, LIP #### [address] [address] CO2 [Moles/Vol] 28 mmol/L Normal 22-29 [facility] Comment on above: Performed By: #### A DIFF, CMP, GFR, CBC, ANEU, MG, MDW, LIP #### [address] [address] Creatinine [Mass/Vol] 0.77 mg/dL Normal 0.51-0.95 [facility] Comment on above: Performed By: #### A DIFF, CMP, GFR, CBC, ANEU, MG, MDW, LIP #### [address] [address] Electrolyte Balance 10.0 mEq/L Normal 4.0-15.0 [facility] Comment on above: Performed By: #### A DIFF, CMP, GFR, CBC, ANEU, MG, MDW, LIP #### [address] [address] Globulin 4.3 G/dL Normal 2.7-4.4 [facility] Comment on above: Performed By: #### A DIFF, CMP, GFR, CBC, ANEU, MG, MDW, LIP #### [address] [address] Glucose [Mass/Vol] 110 mg/dL High 70-105 [facility] Comment on above: Performed By: #### A DIFF, CMP, GFR, CBC, ANEU, MG, MDW, LIP #### [address] [address] Potassium [Moles/Vol] 3.5 mmol/L Normal 3.5-5.1 [facility] Comment on above: Performed By: #### A DIFF, CMP, GFR, CBC, ANEU, MG, MDW, LIP #### [address] [address] Sodium [Moles/Vol] 140 mmol/L Normal 136-145 [facility] Comment on above: Performed By: #### A DIFF, CMP, GFR, CBC, ANEU, MG, MDW, LIP #### [address] [address] Total Protein 8.4 G/dL High 6.4-8.2 [facility] Comment on above: Performed By: #### A DIFF, CMP, GFR, CBC, ANEU, MG, MDW, LIP #### [address] [address] Urea nitrogen [Mass/Vol] 11 mg/dL Normal 7-18 [facility] Comment on above: Performed By: #### A DIFF, CMP, GFR, CBC, ANEU, MG, MDW, LIP #### [address] [address] LABORATORYOrdered By: SYSTEM SYSTEM on 03-11-2025 Albumin BCP dye [Mass/Vol] 4.1 G/dL Normal 3.5 - 5.0 G/dL AO ADM SS Albumin/Globulin [Mass ratio] 1.0 {ratio} Low 1.1 - 2.5 ratio AO ADM SS ALP [Catalytic activity/Vol] 66 U/L Normal 40 - 135 U/L AO ADM SS ALT With P-5'-P [Catalytic activity/Vol] 21 U/L Normal 14 - 59 U/L AO ADM SS AST With P-5'-P [Catalytic activity/Vol] 16 U/L Normal 10 - 40 U/L AO ADM SS Bilirubin [Mass/Vol] 0.4 mg/dL Normal 0.2 - 1 .0 mg/dL AO ADM SS Comment on above: Interpretive Data: U se of this assay is not recommended for patients undergoing treatment with eltrombopag due to the potential for falsely elevated results. Calcium [Mass/Vol] 8.9 mg/dL Normal 8.4 - 10. 2 mg/dL AO ADM SS Chloride [Moles/Vol] 102 mmol/L Normal 98 - 10 7 mmol/L AO ADM SS CO2 [Moles/Vol] 28 mmol/L Normal 22 - 29 mmol/L AO ADM SS Creatinine [Mass/Vol] 0.77 mg/dL Normal 0.51 - 0.95 mg/dL AO ADM SS Electrolyte Balance 10.0 mEq/L Normal 4.0 - 15 .0 mEq/L AO ADM SS Estimated Glomerular Filtration Rate 110 ml/min/1.73sqm Invalid Interpretation Code AO Chemistry S Comment on above: Interpretive Data: Stages of Chronic Kidney Disease (CKD) Stage Description eGFR(ml/min/1.73 sq.m.) CKD 1 Normal kidney function or >=90 normal kindney function with possible kidney damage (ex. Proteinuria) CKD 2 Kidney damage with mild loss 60-89 of kidney function CKD 3a Mild to moderate loss of kidney 45-59 function CKD 3b Moderate to severe loss of 30-44 of kindey function CKD 4 Severe loss of kidney function 15-29 CKD 5 Kidney failure <15 Note: (go live 2024) the eGFR calculation was updated to the 2020 CKD-EPI creatinine equation without a race factor to calculate the eGFR results. Globulin 4.3 G/dL Normal 2.7 - 4.4 G/dL AO ADM SS Glucose [Mass/Vol] 110 mg/dL High 70 - 105 mg/dL AO ADM SS Potassium [Moles/Vol] 3.5 mmol/L Normal 3.5 - 5.1 mmol/L AO ADM SS Protein [Mass/Vol] 8.4 G/dL High 6.4 - 8.2 G/dL AO ADM SS Sodium [Moles/Vol] 140 mmol/L Normal 136 - 145 mmol/L AO ADM SS Urea nitrogen [Mass/Vol] 11 mg/dL Normal 7 - 18 mg/dL AO ADM SS Urea nitrogen/Creatinine [Mass ratio] 14 ratio Normal 7 - 27 ratio AO ADM SS .Auto Diffon 03-10-2025 Basophil, Absolute 0.0 10 3/mcL Normal 0.0-0.3 [facility] Comment on above: Performed By: #### MICKI Haley PREGU #### [address] [address] Basophils/100 WBC (Bld) 0.3 % Normal 0.0-2.5 [facility] Comment on above: Performed By: #### MICKI Haley PREGU #### [address] [address] Eosinophil, Absolute 0.2 10 3/mcL Normal 0.0-0.7 [facility] Comment on above: Performed By: #### MICKI Haley PREGU #### [address] [address] Eosinophils/100 WBC (Bld) 1.5 % Normal 0.0-6.0 [facility] Comment on above: Performed By: #### MICKI Haley, PREGU #### [address] [address] Lymphocyte, Absolute 1.3 10 3/mcL Normal 0.9-4.3 [facility] Comment on above: Performed By: #### MICKI Haley PREGU #### [address] [address] Lymphocytes/100 WBC (Bld) 10.0 % Low 20.0-40.0 [facility] Comment on above: Performed By: #### MICKI Haley, PREGU #### [address] [address] Monocyte, Absolute 0.5 10 3/mcL Normal 0.1-1.4 [facility] Comment on above: Performed By: #### U A UAMIC, PREGU #### [address] [address] Monocytes/100 WBC (Bld) 3.9 % Normal 2.0-13.0 [facility] Comment on above: Performed By: #### U A UAMIC, PREGU #### [address] [address] Neutrophils/100 WBC (Bld) 84.3 % High 50.0-75.0 [facility] Comment on above: Performed By: #### U Kristy UASADIE, PREGU #### [address] [address] .GFRon 03-10-2025 Estimated Glomerular Filtration Rate 106 ml/min/1.73sqm Normal [facility] Comment on above: Result Comment: Stages of Chronic Kidney Disease (CKD) Stage Description eGFR(ml/min/1.73 sq.m.) CKD 1 Normal kidney function or >=90 normal kindney function with possible kidney damage (ex. Proteinuria) CKD 2 Kidney damage with mild loss 60-89 of kidney function CKD 3a Mild to moderate loss of kidney 45-59 function CKD 3b Moderate to severe loss of 30-44 of kindey function CKD 4 Severe loss of kidney function 15-29 CKD 5 Kidney failure <15 Note: (go live 2024) the eGFR calculation was updated to the 2020 CKD-EPI creatinine equation without a race factor to calculate the eGFR results. Performed By: #### U A UAMIC, PREGU #### [address] [address] .MDWon 03-10-2025 Monocyte Distribution Width 16.80 Normal 0.00-20.00 [facility] Comment on above: Result Comment: For ED adult patients suspected of sepsis, MDW<=20.0 does not rule out sepsis or risk of sepsis Performed By: #### U A UAMIC, PREGU #### [address] [address] .NEUABSon 03-10-2025 Neutrophil, Absolute 11.0 10 3/mcL High 2.3-8.1 [facility] Comment on above: Performed By: #### MICKI Haley, PREGU #### [address] [address] CBCon 03-10-2025 Erythrocyte distribution width (RBC) [Ratio] 18.4 % High 11.5-15.5 [facility] Comment on above: Performed By: #### MICKI Haley PREGU #### [place] [address] Hematocrit (Bld) [Volume fraction] 34.1 % Normal 34.0-46.0 [facility] Comment on above: Performed By: #### MICKI Haley PREGU #### [place] [address] Hgb 10.7 G/dL Low 12.0-16.0 [facility] Comment on above: Performed By: #### MICKI Haley PREGU #### [place] [id number] MCH (RBC) [Entitic mass] 22.5 pg Low 27.0-33.0 [facility] Comment on above: Performed By: #### MICKI Haley PREGU #### [place] [address] MCHC 31.5 G/dL Low 32.0-36.0 [facility] Comment on above: Performed By: #### MICKI Haley PREGU #### [place] [id number] MCV (RBC) [Entitic vol] 71.5 fL Low 80.0-99.0 [facility] Comment on above: Performed By: #### U MICKI Wagner, PREGU #### [place] [id number] Platelet 340 10 3/mcL Normal 150-450 [facility] Comment on above: Performed By: #### MICKI Haley PREGU #### [address] [address] Platelet mean volume (Bld) [Entitic vol] 7.2 fL Normal 6.6-10.5 [facility] Comment on above: Performed By: #### MICKI Haley PREGU #### [address] [address] RBC 4.76 10 6/mcL Normal 4.10-5.30 [facility] Comment on above: Performed By: #### MICKI Haley PREGU #### [address] [address] WBC 13.0 10 3/mcL High 4.5-10.8 [facility] Comment on above: Performed By: #### MICKI Haley PREGU #### [address] [address] CMPon 03-10-2025 Albumin Level 4.3 G/dL Normal 3.5-5.0 [facility] Comment on above: Performed By: #### MICKI Haley PREGU #### [address] [address] Albumin/Globulin [Mass ratio] 1.0 {ratio} Low 1.1-2.5 [facility] Comment on above: Performed By: #### MICKI Haley PREGU #### [address] [address] ALP [Catalytic activity/Vol] 70 U/L Normal 40-135 [facility] Comment on above: Performed By: #### MICKI Haley PREGU #### [address] [address] ALT [Catalytic activity/Vol] 24 U/L Normal 14-59 [facility] Comment on above: Performed By: #### MICKI Haley PREGU #### [address] [place] [address] AST [Catalytic activity/Vol] 16 U/L Normal 10-40 [facility] Comment on above: Performed By: #### U Kristy UAMIC, PREGU #### [address] [address] Bili Total 0.4 mg/dL Normal 0.2-1.0 [facility] Comment on above: Result Comment: Use of this assay is not recommended for patients undergoing treatment with eltrombopag due to the potential for falsely elevated results. Performed By: #### U A UAMIC, PREGU #### [place] [address] BUN/Creatinine Ratio 15 ratio Normal 7-27 [facility] Comment on above: Performed By: #### U A UAMIC, PREGU #### [address] [address] Calcium [Mass/Vol] 9.3 mg/dL Normal 8.4-10.2 [facility] Comment on above: Performed By: #### U A UAMIC, PREGU #### [address] [address] Chloride [Moles/Vol] 105 mmol/L Normal 98-107 [facility] Comment on above: Performed By: #### U A UAMIC, PREGU #### [address] [address] CO2 [Moles/Vol] 26 mmol/L Normal 22-29 [facility] Comment on above: Performed By: #### U A UAMIC, PREGU #### [address] [address] Creatinine [Mass/Vol] 0.79 mg/dL Normal 0.51-0.95 [facility] Comment on above: Performed By: #### U A, UAMIC, PREGU #### [address] [address] Electrolyte Balance 11.0 mEq/L Normal 4.0-15.0 [facility] Comment on above: Performed By: #### U A, UAMIC, PREGU #### [address] [address] Globulin 4.5 G/dL High 2.7-4.4 [facility] Comment on above: Performed By: #### U A, UAMIC, PREGU #### [address] [address] Glucose [Mass/Vol] 108 mg/dL High 70-105 [facility] Comment on above: Performed By: #### U A, UAMIC, PREGU #### [address] [address] Potassium [Moles/Vol] 3.6 mmol/L Normal 3.5-5.1 [facility] Comment on above: Performed By: #### U A, UAMIC, PREGU #### [address] [address] Sodium [Moles/Vol] 142 mmol/L Normal 136-145 [facility] Comment on above: Performed By: #### U A, UAMIC, PREGU #### [address] [address] Total Protein 8.8 G/dL High 6.4-8.2 [facility] Comment on above: Performed By: #### U A, UAMIC, PREGU #### [address] [address] Urea nitrogen [Mass/Vol] 12 mg/dL Normal 7-18 [facility] Comment on above: Performed By: #### U A, UAMIC, PREGU #### [address] [address] LABORATORYOrdered By: Augusto Terry on 03-10-2025 Appearance (U) Clear (03/10/25 5:53 PM) Normal Clear AO Auto Urine SS Bilirubin Ql (U) Small *ABN* (03/10/25 5:53 PM) Invalid Interpretation Code Negative AO Auto Urine SS Color (U) Yellow (03/10/25 5:53 PM) Normal AO Auto Urine SS Glucose Test strip (U) [Mass/Vol] Negative Normal Negative AO Auto Urine SS Hemoglobin Auto test strip (U) [Mass/Vol] Negative (03/10/25 5:53 PM) Normal Negative AO Auto Urine SS Ketones Ql (U) 40 mg/dL Invalid Interpretation Code Negative AO Auto Urine SS UA Leuk Est Negative (03/10/25 5:53 PM) Normal Negative AO Auto Urine SS UA Nitrite Negative (03/10/25 5:53 PM) Normal Negative AO Auto Urine SS UA pH 6.5 (03/10/25 5:53 PM) Normal 5.0 - 8.0 AO Auto Urine SS UA Protein Trace mg/dL Normal Negative AO Auto Urine SS UA Spec Grav 1.025 (03/10/25 5:53 PM) Normal 1.015-1.02 5 AO Auto Urine SS UA Specimen Type Clean Catch (03/10/25 5:53 PM) Normal AO Auto Urine SS UA Urobilinogen 1.0 E.U./dL Normal 0.2-1.0 AO Auto Urine SS LABORATORYOrdered By: SYSTEM SYSTEM on 03-10-2025 Albumin BCP dye [Mass/Vol] 4.3 G/dL Normal 3.5 - 5.0 G/dL AO ADM SS Albumin/Globulin [Mass ratio] 1.0 {ratio} Low 1.1 - 2.5 ratio AO ADM SS ALP [Catalytic activity/Vol] 70 U/L Normal 40 - 135 U/L AO ADM SS ALT With P-5'-P [Catalytic activity/Vol] 24 U/L Normal 14 - 59 U/L AO ADM SS AST With P-5'-P [Catalytic activity/Vol] 16 U/L Normal 10 - 40 U/L AO ADM SS Basophils (Bld) [#/Vol] 0.0 103/mcL Normal 0.0 - 0.3 10^3/mcL AO Workflow SS Basophils/100 WBC (Bld) 0.3 % Normal 0.0 - 2.5 % AO Workflow SS Bilirubin [Mass/Vol] 0.4 mg/dL Normal 0.2 - 1 .0 mg/dL AO ADM SS Comment on above: Interpretive Data: U se of this assay is not recommended for patients undergoing treatment with eltrombopag due to the potential for falsely elevated results. Calcium [Mass/Vol] 9.3 mg/dL Normal 8.4 - 10. 2 mg/dL AO ADM SS Chloride [Moles/Vol] 105 mmol/L Normal 98 - 10 7 mmol/L AO ADM SS CO2 [Moles/Vol] 26 mmol/L Normal 22 - 29 mmol/L AO ADM SS Creatinine [Mass/Vol] 0.79 mg/dL Normal 0.51 - 0.95 mg/dL AO ADM SS Electrolyte Balance 11.0 mEq/L Normal 4.0 - 15 .0 mEq/L AO ADM SS Eosinophil, Absolute 0.2 103/mcL Normal 0.0 - 0 .7 10^3/mcL AO Workflow SS Eosinophils/100 WBC (Bld) 1.5 % Normal 0.0 - 6.0 % AO Workflow SS Erythrocyte distribution width (RBC) [Ratio] 18.4 % High 11.5 - 15.5 % AO Workflow SS Estimated Glomerular Filtration Rate 106 ml/min/1.73sqm Invalid Interpretation Code AO Chemistry S Comment on above: Interpretive Data: Stages of Chronic Kidney Disease (CKD) Stage Description eGFR(ml/min/1.73 sq.m.) CKD 1 Normal kidney function or >=90 normal kindney function with possible kidney damage (ex. Proteinuria) CKD 2 Kidney damage with mild loss 60-89 of kidney function CKD 3a Mild to moderate loss of kidney 45-59 function CKD 3b Moderate to severe loss of 30-44 of kindey function CKD 4 Severe loss of kidney function 15-29 CKD 5 Kidney failure <15 Note: (go live 2024) the eGFR calculation was updated to the 2020 CKD-EPI creatinine equation without a race factor to calculate the eGFR results. Globulin 4.5 G/dL High 2.7 - 4.4 G/dL AO ADM SS Glucose [Mass/Vol] 108 mg/dL High 70 - 105 mg/dL AO ADM SS Hematocrit (Bld) [Volume fraction] 34.1 % Normal 34.0 - 46.0 % AO Workflow SS Hemoglobin (Bld) [Mass/Vol] 10.7 G/dL Low 12.0 - 16.0 G/dL AO Workflow SS Lipase [Catalytic activity/Vol] 20 U/L Normal 16 - 77 U/L AO ADM SS Lymphocytes (Bld) [#/Vol] 1.3 103/mcL Normal 0.9 - 4.3 10^3/mcL AO Workflow SS Lymphocytes/100 WBC (Bld) 10.0 % Low 20.0 - 40.0 % AO Workflow SS Magnesium [Mass/Vol] 1.9 mg/dL Normal 1.8 - 2 .4 mg/dL AO ADM SS MCH (RBC) [Entitic mass] 22.5 pg Low 27. 0 - 33.0 pg AO Workflow SS MCHC 31.5 G/dL Low 32.0 - 36.0 G/dL AO Workflow SS MCV (RBC) [Entitic vol] 71.5 fL Low 80.0 - 99.0 fL AO Workflow SS Monocyte distribution width Auto (Bld) [Entitic vol] 16.80 1 Normal 0.00 - 20.00 AO Workflow SS Comment on above: Result Comment: For ED adult patients suspected of sepsis, MDW<=20.0 does not rule out sepsis or risk of sepsis Monocytes (Bld) [#/Vol] 0.5 103/mcL Normal 0.1 - 1.4 10^3/mcL AO Workflow SS Monocytes/100 WBC (Bld) 3.9 % Normal 2.0 - 13.0 % AO Workflow SS Neutrophils (Bld) [#/Vol] 11.0 103/mcL High 2.3 - 8.1 10^3/mcL AO Workflow SS Neutrophils/100 WBC (Bld) 84.3 % High 50.0 - 75.0 % AO Workflow SS Platelet mean volume (Bld) [Entitic vol] 7.2 fL Normal 6.6 - 10.5 fL AO Workflow SS Platelets (Bld) [#/Vol] 340 103/mcL Normal 150 - 450 10^3/mcL AO Workflow SS Potassium [Moles/Vol] 3.6 mmol/L Normal 3.5 - 5.1 mmol/L AO ADM SS Protein [Mass/Vol] 8.8 G/dL High 6.4 - 8.2 G/dL AO ADM SS RBC (Bld) [#/Vol] 4.76 106/mcL Normal 4.10 - 5.30 10^6/mcL AO Workflow SS Sodium [Moles/Vol] 142 mmol/L Normal 136 - 145 mmol/L AO ADM SS Urea nitrogen [Mass/Vol] 12 mg/dL Normal 7 - 18 mg/dL AO ADM SS Urea nitrogen/Creatinine [Mass ratio] 15 ratio Normal 7 - 27 ratio AO ADM SS WBC (Bld) [#/Vol] 13.0 103/mcL High 4.5 - 10.8 10^3/mcL AO Workflow SS LIPon 03-10-2025 Lipase Level 20 U/L Normal 16-77 [facility] Comment on above: Performed By: #### U A, UAMIC, PREGU #### [address] [address] MGon 03-10-2025 Magnesium [Mass/Vol] 1.9 mg/dL Normal 1.8-2.4 [facility] Comment on above: Performed By: #### U A, UAMIC, PREGU #### [address] [address] UAon 03-10-2025 Color (U) Yellow Normal [facility] Comment on above: Performed By: #### A DIFF, CMP, GFR, CBC, ANEU, MG, MDW, LIP #### [address] [address] Glucose (U) [Mass/Vol] Negative Normal Negative [facility] Comment on above: Performed By: #### A DIFF, CMP, GFR, CBC, ANEU, MG, MDW, LIP #### [address] [address] Ketones Ql (U) 40 mg/dL Abnormal Negative [facility] Comment on above: Performed By: #### A DIFF, CMP, GFR, CBC, ANEU, MG, MDW, LIP #### [address] [address] UA Appear Clear Normal Clear [facility] Comment on above: Performed By: #### A DIFF, CMP, GFR, CBC, ANEU, MG, MDW, LIP #### [address] [address] UA Bili Small Abnormal Negative [facility] Comment on above: Performed By: #### A DIFF, CMP, GFR, CBC, ANEU, MG, MDW, LIP #### [address] [address] UA Blood Negative Normal Negative [facility] Comment on above: Performed By: #### A DIFF, CMP, GFR, CBC, ANEU, MG, MDW, LIP #### [address] [address] UA Leuk Est Negative Normal Negative [facility] Comment on above: Performed By: #### A DIFF, CMP, GFR, CBC, ANEU, MG, MDW, LIP #### [address] [address] UA Nitrite Negative Normal Negative [facility] Comment on above: Performed By: #### A DIFF, CMP, GFR, CBC, ANEU, MG, MDW, LIP #### [address] [address] UA pH 6.5 Normal 5.0 - 8.0 [facility] Comment on above: Performed By: #### A DIFF, CMP, GFR, CBC, ANEU, MG, MDW, LIP #### [address] [address] UA Protein Trace Normal Negative [facility] Comment on above: Performed By: #### A DIFF, CMP, GFR, CBC, ANEU, MG, MDW, LIP #### [address] [address] UA Spec Grav 1.025 Normal 1.015-1.[address] [place] [address] Comment on above: Performed By: #### A DIFF, CMP, GFR, CBC, ANEU, MG, MDW, LIP #### [address] [address] UA Specimen Type Clean Catch Normal [facility] Comment on above: Performed By: #### A DIFF, CMP, GFR, CBC, ANEU, MG, MDW, LIP #### [address] [address] UA Urobilinogen 1.0 E.U./dL Normal 0.2-1.0 [facility] Comment on above: Performed By: #### A DIFF, CMP, GFR, CBC, ANEU, MG, MDW, LIP #### [address] [address] .Auto Diffon 03-09-2025 Basophil, Absolute 0.0 10 3/mcL Normal 0.0-0.3 [facility] Comment on above: Performed By: #### A DIFF, CMP, GFR, CBC, ANEU, MG, MDW, LIP #### [address] [address] Basophils/100 WBC (Bld) 0.1 % Normal 0.0-2.5 [facility] Comment on above: Performed By: #### A DIFF, CMP, GFR, CBC, ANEU, MG, MDW, LIP #### [address] [address] Eosinophil, Absolute 0.0 10 3/mcL Normal 0.0-0.7 [facility] Comment on above: Performed By: #### A DIFF, CMP, GFR, CBC, ANEU, MG, MDW, LIP #### [address] [address] Eosinophils/100 WBC (Bld) 0.0 % Normal 0.0-6.0 [facility] Comment on above: Performed By: #### A DIFF, CMP, GFR, CBC, ANEU, MG, MDW, LIP #### [address] [address] Lymphocyte, Absolute 0.6 10 3/mcL Low 0.9-4.3 [facility] Comment on above: Performed By: #### A DIFF, CMP, GFR, CBC, ANEU, MG, MDW, LIP #### [address] [address] Lymphocytes/100 WBC (Bld) 3.9 % Low 20.0-40.0 [facility] Comment on above: Performed By: #### A DIFF, CMP, GFR, CBC, ANEU, MG, MDW, LIP #### [address] [address] Monocyte, Absolute 0.4 10 3/mcL Normal 0.1-1.4 [facility] Comment on above: Performed By: #### A DIFF, CMP, GFR, CBC, ANEU, MG, MDW, LIP #### [id number] [place], [place] [address] Monocytes/100 WBC (Bld) 2.6 % Normal 2.0-13.0 [facility] Comment on above: Performed By: #### A DIFF, CMP, GFR, CBC, ANEU, MG, MDW, LIP #### [id number] [place], [place] [address] Neutrophils/100 WBC (Bld) 93.4 % High 50.0-75.0 [facility] Comment on above: Performed By: #### A DIFF, CMP, GFR, CBC, ANEU, MG, MDW, LIP #### [address] [address] .GFRon 03-09-2025 GFR/1.73 sq M.predicted among non-blacks MDRD (S/P/Bld) [Vol rate/Area] mL/min/{1.73_m2} Normal [facility] Comment on above: Result Comment: Stages of Chronic Kidney Disease (CKD) Stage Description eGFR(ml/min/1.73 sq.m.) CKD 1 Normal kidney function or >=90 normal kindney function with possible kidney damage (ex. Proteinuria) CKD 2 Kidney damage with mild loss 60-89 of kidney function CKD 3a Mild to moderate loss of kidney 45-59 function CKD 3b Moderate to severe loss of 30-44 of kindey function CKD 4 Severe loss of kidney function 15-29 CKD 5 Kidney failure <15 Note: (go live 2024) the eGFR calculation was updated to the 2020 CKD-EPI creatinine equation without a race factor to calculate the eGFR results. Performed By: #### A DIFF, CMP, GFR, CBC, ANEU, MG, MDW, LIP #### [address] [id number] [place], [place] [address] .MDWon 03-09-2025 Monocyte Distribution Width 18.23 Normal 0.00-20.00 [facility] Comment on above: Result Comment: For ED adult patients suspected of sepsis, MDW<=20.0 does not rule out sepsis or risk of sepsis Performed By: #### A DIFF, CMP, GFR, CBC, ANEU, MG, MDW, LIP #### [address] [address] .NEUABSon 03-09-2025 Neutrophil, Absolute 13.9 10 3/mcL High 2.3-8.1 [facility] Comment on above: Performed By: #### A DIFF, CMP, GFR, CBC, ANEU, MG, MDW, LIP #### [place] [address] CBCon 03-09-2025 Erythrocyte distribution width (RBC) [Ratio] 18.0 % High 11.5-15.5 [facility] Comment on above: Performed By: #### A DIFF, CMP, GFR, CBC, ANEU, MG, MDW, LIP #### [place] [address] Hematocrit (Bld) [Volume fraction] 34.3 % Normal 34.0-46.0 [facility] Comment on above: Performed By: #### A DIFF, CMP, GFR, CBC, ANEU, MG, MDW, LIP #### [place] [address] Hgb 10.8 G/dL Low 12.0-16.0 [facility] Comment on above: Performed By: #### A DIFF, CMP, GFR, CBC, ANEU, MG, MDW, LIP #### [place] [address] MCH (RBC) [Entitic mass] 22.5 pg Low 27.0-33.0 [facility] Comment on above: Performed By: #### A DIFF, CMP, GFR, CBC, ANEU, MG, MDW, LIP #### [place] [address] MCHC 31.4 G/dL Low 32.0-36.0 [facility] Comment on above: Performed By: #### A DIFF, CMP, GFR, CBC, ANEU, MG, MDW, LIP #### [place] [address] MCV (RBC) [Entitic vol] 71.6 fL Low 80.0-99.0 [facility] Comment on above: Performed By: #### A DIFF, CMP, GFR, CBC, ANEU, MG, MDW, LIP #### [address] [address] Platelet 347 10 3/mcL Normal 150-450 [facility] Comment on above: Performed By: #### A DIFF, CMP, GFR, CBC, ANEU, MG, MDW, LIP #### [address] [address] Platelet mean volume (Bld) [Entitic vol] 6.6 fL Normal 6.6-10.5 [facility] Comment on above: Performed By: #### A DIFF, CMP, GFR, CBC, ANEU, MG, MDW, LIP #### [address] [address] RBC 4.79 10 6/mcL Normal 4.10-5.30 [facility] Comment on above: Performed By: #### A DIFF, CMP, GFR, CBC, ANEU, MG, MDW, LIP #### [address] [address] WBC 14.9 10 3/mcL High 4.5-10.8 [facility] Comment on above: Performed By: #### A DIFF, CMP, GFR, CBC, ANEU, MG, MDW, LIP #### [address] [address] CMPon 03-09-2025 Albumin Level 4.4 G/dL Normal 3.5-5.0 [facility] Comment on above: Performed By: #### A DIFF, CMP, GFR, CBC, ANEU, MG, MDW, LIP #### [address] [address] Albumin/Globulin [Mass ratio] 0.9 {ratio} Low 1.1-2.5 [facility] Comment on above: Performed By: #### A DIFF, CMP, GFR, CBC, ANEU, MG, MDW, LIP #### [address] [address] ALP [Catalytic activity/Vol] 77 U/L Normal 40-135 [facility] Comment on above: Performed By: #### A DIFF, CMP, GFR, CBC, ANEU, MG, MDW, LIP #### [address] [address] ALT [Catalytic activity/Vol] 21 U/L Normal 14-59 [facility] Comment on above: Performed By: #### A DIFF, CMP, GFR, CBC, ANEU, MG, MDW, LIP #### [address] [address] AST [Catalytic activity/Vol] 12 U/L Normal 10-40 [facility] Comment on above: Performed By: #### A DIFF, CMP, GFR, CBC, ANEU, MG, MDW, LIP #### [address] [address] Bili Total 0.3 mg/dL Normal 0.2-1.0 [facility] Comment on above: Result Comment: Use of this assay is not recommended for patients undergoing treatment with eltrombopag due to the potential for falsely elevated results. Performed By: #### A DIFF, CMP, GFR, CBC, ANEU, MG, MDW, LIP #### [address] [address] BUN/Creatinine Ratio 16 ratio Normal 7-27 [facility] Comment on above: Performed By: #### A DIFF, CMP, GFR, CBC, ANEU, MG, MDW, LIP #### [address] [address] Calcium [Mass/Vol] 9.3 mg/dL Normal 8.4-10.2 [facility] Comment on above: Performed By: #### A DIFF, CMP, GFR, CBC, ANEU, MG, MDW, LIP #### [address] [address] Chloride [Moles/Vol] 101 mmol/L Normal 98-107 [facility] Comment on above: Performed By: #### A DIFF, CMP, GFR, CBC, ANEU, MG, MDW, LIP #### [address] [address] CO2 [Moles/Vol] 25 mmol/L Normal 22-29 [facility] Comment on above: Performed By: #### A DIFF, CMP, GFR, CBC, ANEU, MG, MDW, LIP #### [address] [address] Creatinine [Mass/Vol] 0.69 mg/dL Normal 0.51-0.95 [facility] Comment on above: Performed By: #### A DIFF, CMP, GFR, CBC, ANEU, MG, MDW, LIP #### [place] [address] Electrolyte Balance 15.0 mEq/L Normal 4.0-15.0 [facility] Comment on above: Performed By: #### A DIFF, CMP, GFR, CBC, ANEU, MG, MDW, LIP #### [place] [address] Globulin 4.7 G/dL High 2.7-4.4 [facility] Comment on above: Performed By: #### A DIFF, CMP, GFR, CBC, ANEU, MG, MDW, LIP #### [address] [address] Glucose [Mass/Vol] 175 mg/dL High 70-105 [facility] Comment on above: Performed By: #### A DIFF, CMP, GFR, CBC, ANEU, MG, MDW, LIP #### [address] [address] Potassium [Moles/Vol] 3.9 mmol/L Normal 3.5-5.1 [facility] Comment on above: Performed By: #### A DIFF, CMP, GFR, CBC, ANEU, MG, MDW, LIP #### [address] [address] Sodium [Moles/Vol] 141 mmol/L Normal 136-145 [facility] Comment on above: Performed By: #### A DIFF, CMP, GFR, CBC, ANEU, MG, MDW, LIP #### [facility] [address], [place] [address] Total Protein 9.1 G/dL High 6.4-8.2 [facility] Comment on above: Performed By: #### A DIFF, CMP, GFR, CBC, ANEU, MG, MDW, LIP #### [facility] [address], [place] [address] Urea nitrogen [Mass/Vol] 11 mg/dL Normal 7-18 [facility] Comment on above: Performed By: #### A DIFF, CMP, GFR, CBC, ANEU, MG, MDW, LIP #### [place] [address] [place], [place] [address] LABORATORYOrdered By: SYSTEM SYSTEM on 03-09-2025 Albumin BCP dye [Mass/Vol] 4.4 G/dL Normal 3.5 - 5.0 G/dL AO ADM SS Albumin/Globulin [Mass ratio] 0.9 {ratio} Low 1.1 - 2.5 ratio AO ADM SS ALP [Catalytic activity/Vol] 77 U/L Normal 40 - 135 U/L AO ADM SS ALT With P-5'-P [Catalytic activity/Vol] 21 U/L Normal 14 - 59 U/L AO ADM SS AST With P-5'-P [Catalytic activity/Vol] 12 U/L Normal 10 - 40 U/L AO ADM SS Basophils (Bld) [#/Vol] 0.0 103/mcL Normal 0.0 - 0.3 10^3/mcL AO Workflow SS Basophils/100 WBC (Bld) 0.1 % Normal 0.0 - 2.5 % AO Workflow SS Bilirubin [Mass/Vol] 0.3 mg/dL Normal 0.2 - 1 .0 mg/dL AO ADM SS Comment on above: Interpretive Data: U se of this assay is not recommended for patients undergoing treatment with eltrombopag due to the potential for falsely elevated results. Calcium [Mass/Vol] 9.3 mg/dL Normal 8.4 - 10. 2 mg/dL AO ADM SS Chloride [Moles/Vol] 101 mmol/L Normal 98 - 10 7 mmol/L AO ADM SS CO2 [Moles/Vol] 25 mmol/L Normal 22 - 29 mmol/L AO ADM SS Creatinine [Mass/Vol] 0.69 mg/dL Normal 0.51 - 0.95 mg/dL AO ADM SS Electrolyte Balance 15.0 mEq/L Normal 4.0 - 15 .0 mEq/L AO ADM SS Eosinophil, Absolute 0.0 103/mcL Normal 0.0 - 0 .7 10^3/mcL AO Workflow SS Eosinophils/100 WBC (Bld) 0.0 % Normal 0.0 - 6.0 % AO Workflow SS Erythrocyte distribution width (RBC) [Ratio] 18.0 % High 11.5 - 15.5 % AO Workflow SS Estimated Glomerular Filtration Rate ml/min/1.73sqm Invalid Interpretation Code AO Chemistry S Comment on above: Interpretive Data: Stages of Chronic Kidney Disease (CKD) Stage Description eGFR(ml/min/1.73 sq.m.) CKD 1 Normal kidney function or >=90 normal kindney function with possible kidney damage (ex. Proteinuria) CKD 2 Kidney damage with mild loss 60-89 of kidney function CKD 3a Mild to moderate loss of kidney 45-59 function CKD 3b Moderate to severe loss of 30-44 of kindey function CKD 4 Severe loss of kidney function 15-29 CKD 5 Kidney failure <15 Note: (go live 2024) the eGFR calculation was updated to the 2020 CKD-EPI creatinine equation without a race factor to calculate the eGFR results. Globulin 4.7 G/dL High 2.7 - 4.4 G/dL AO ADM SS Glucose [Mass/Vol] 175 mg/dL High 70 - 105 mg/dL AO ADM SS Hematocrit (Bld) [Volume fraction] 34.3 % Normal 34.0 - 46.0 % AO Workflow SS Hemoglobin (Bld) [Mass/Vol] 10.8 G/dL Low 12.0 - 16.0 G/dL AO Workflow SS Lipase [Catalytic activity/Vol] 17 U/L Normal 16 - 77 U/L AO ADM SS Lymphocytes (Bld) [#/Vol] 0.6 103/mcL Low 0.9 - 4.3 10^3/mcL AO Workflow SS Lymphocytes/100 WBC (Bld) 3.9 % Low 20.0 - 40.0 % AO Workflow SS MCH (RBC) [Entitic mass] 22.5 pg Low 27. 0 - 33.0 pg AO Workflow SS MCHC 31.4 G/dL Low 32.0 - 36.0 G/dL AO Workflow SS MCV (RBC) [Entitic vol] 71.6 fL Low 80.0 - 99.0 fL AO Workflow SS Monocyte distribution width Auto (Bld) [Entitic vol] 18.23 1 Normal 0.00 - 20.00 AO Workflow SS Comment on above: Result Comment: For ED adult patients suspected of sepsis, MDW<=20.0 does not rule out sepsis or risk of sepsis Monocytes (Bld) [#/Vol] 0.4 103/mcL Normal 0.1 - 1.4 10^3/mcL AO Workflow SS Monocytes/100 WBC (Bld) 2.6 % Normal 2.0 - 13.0 % AO Workflow SS Neutrophils (Bld) [#/Vol] 13.9 103/mcL High 2.3 - 8.1 10^3/mcL AO Workflow SS Neutrophils/100 WBC (Bld) 93.4 % High 50.0 - 75.0 % AO Workflow SS Platelet mean volume (Bld) [Entitic vol] 6.6 fL Normal 6.6 - 10.5 fL AO Workflow SS Platelets (Bld) [#/Vol] 347 103/mcL Normal 150 - 450 10^3/mcL AO Workflow SS Potassium [Moles/Vol] 3.9 mmol/L Normal 3.5 - 5.1 mmol/L AO ADM SS Protein [Mass/Vol] 9.1 G/dL High 6.4 - 8.2 G/dL AO ADM SS RBC (Bld) [#/Vol] 4.79 106/mcL Normal 4.10 - 5.30 10^6/mcL AO Workflow SS Sodium [Moles/Vol] 141 mmol/L Normal 136 - 145 mmol/L AO ADM SS Urea nitrogen [Mass/Vol] 11 mg/dL Normal 7 - 18 mg/dL AO ADM SS Urea nitrogen/Creatinine [Mass ratio] 16 ratio Normal 7 - 27 ratio AO ADM SS WBC (Bld) [#/Vol] 14.9 103/mcL High 4.5 - 10.8 10^3/mcL AO Workflow SS LABORATORYOrdered By: Augusto Terry on 03-09-2025 Appearance (U) Slightly Cloudy *ABN* (03/09/25 10:41 AM) Invalid Interpretation Code Clear AO Auto Urine SS Bacteria LM.HPF (Urine sed) [#/Area] 1 /[HPF] Invalid Interpretation Code Negative AO Auto Urine SS Bilirubin Ql (U) Negative (03/09/25 10:41 AM) Normal Negative AO Auto Urine SS Color (U) Yellow (03/09/25 10:41 AM) Normal AO Auto Urine SS Glucose Test strip (U) [Mass/Vol] Negative Normal Negative AO Auto Urine SS HCG ( test) Ql Negative (03/09/25 10:41 AM) Normal AO Manual Urine SS Hemoglobin Auto test strip (U) [Mass/Vol] Negative (03/09/25 10:41 AM) Normal Negative AO Auto Urine SS Ketones Ql (U) Trace mg/dL Invalid Interpretation Code Negative AO Auto Urine SS test (u) int Not detected Invalid Interpretation Code AO Manual Urine SS UA Leuk Est Negative (03/09/25 10:41 AM) Normal Negative AO Auto Urine SS UA Mucous 1+ /HPF Normal AO Auto Urine SS UA Nitrite Negative (03/09/25 10:41 AM) Normal Negative AO Auto Urine SS UA pH 6.0 (03/09/25 10:41 AM) Normal 5.0 - 8.0 AO Auto Urine SS UA Protein 30 mg/dL Normal Negative AO Auto Urine SS UA RBC 0-2 /HPF Normal 0-2 AO Auto Urine SS UA Spec Grav >=1.030 *ABN* (03/09/25 10:41 AM) Invalid Interpretation Code 1.015-1.02 5 AO Auto Urine SS UA Specimen Type Clean Catch (03/09/25 10:41 AM) Normal AO Auto Urine SS UA Squam Epithelial 5-10 /HPF Normal 0-20 AO Au to Urine SS UA Urobilinogen 0.2 E.U./dL Normal 0.2-1.0 AO Auto Urine SS WBC LM.HPF (Urine sed) [#/Area] 3-5 /HPF Normal 0-5 AO Auto Urine SS LIPon 03-09-2025 Lipase Level 17 U/L Normal 16-77 [facility] Comment on above: Performed By: #### A DIFF, CMP, GFR, CBC, ANEU, MG, MDW, LIP #### [facility] [address], [place] [address] PREGUon 03-09-2025 HCG ( test) Ql (U) Negative Normal [facility] Comment on above: Performed By: #### U A, UAMIC, PREGU #### [place] [address] test (u) int Not detected Invalid Interpretation Code [facility] Comment on above: Performed By: #### U A, UAMIC, PREGU #### [place] [id number] UAon 03-09-2025 Color (U) Yellow Normal [facility] Comment on above: Performed By: #### U A, UAMIC, PREGU #### [place] [address] Glucose (U) [Mass/Vol] Negative Normal Negative [facility] Comment on above: Performed By: #### U A, UAMIC, PREGU #### [place] [address] Ketones Ql (U) Trace Abnormal Negative [facility] Comment on above: Performed By: #### U A, UAMIC, PREGU #### [place] [address] UA Appear Slightly Cloudy Abnormal Clear [facility] Comment on above: Performed By: #### U A, UAMIC, PREGU #### [place] [address] UA Blood Negative Normal Negative [facility] Comment on above: Performed By: #### U A, UAMIC, PREGU #### [place] [address] UA Leuk Est Negative Normal Negative [facility] Comment on above: Performed By: #### U A, UAMIC, PREGU #### [place] [address] UA Nitrite Negative Normal Negative [facility] Comment on above: Performed By: #### U A, UAMIC, PREGU #### [place] [address] UA pH 6.0 Normal 5.0 - 8.0 [facility] Comment on above: Performed By: #### U A, UAMIC, PREGU #### [address] [address] UA Protein 30 mg/dL Normal Negative [facility] Comment on above: Performed By: #### U A, UAMIC, PREGU #### [address] [address] UA Spec Grav >=1.030 Abnormal 1.015-1.02 5 [facility] Comment on above: Performed By: #### U A, UAMIC, PREGU #### [address] [address] UA Urobilinogen 0.2 E.U./dL Normal 0.2-1.0 [facility] Comment on above: Performed By: #### U A, UAMIC, PREGU #### [place] [address] Urobilinogen (U) [Mass/Vol] Negative Normal Negative [facility] Comment on above: Performed By: #### U A, UAMIC, PREGU #### [address] [address] UA Specimen Type Clean Catch Normal [facility] Comment on above: Performed By: #### U A, UAMIC, PREGU #### [address] [address] UAMICon 03-09-2025 UA Bacteria 1+ /hpf Abnormal Negative [facility] Comment on above: Performed By: #### U A, UAMIC, PREGU #### [address] [address] UA Mucous 1+ /hpf Normal [facility] Comment on above: Performed By: #### U A, UAMIC, PREGU #### [address] [address] UA RBC 0-2 Normal 0-2 [facility] Comment on above: Performed By: #### U A, UAMIC, PREGU #### [place] [address] UA Squam Epithelial 5-10 Normal 0-20 [facility] Comment on above: Performed By: #### U A UAMIC, PREGU #### [place] [address] [place], [place] [address] UA WBC 3-5 Normal 0-5 [facility] Comment on above: Performed By: #### U A, UAMIC, PREGU #### [place] [address] [place], [place] [address] CNOVon 02-15-2025 CNOV Normal [facility] [id number] 01-02-2025 [id number] Normal [facility] ANES POSTPROC EVALon 025 ANES POSTPROC EVAL HNO ID: [id number] Author: VIDA BARROSO MD Service: Critical Care Author Type: Anesthesiologist Type: Anesthesia Postprocedure Evaluation Filed: 01/02/2025 15:31 Note Text: POST ANESTHESIA EVALUATION NOTE : 2000 Procedure Summary Date: 01/02/25 Room / Location: [facility] - ENDO Anesthesia Start: 1249 Anesthesia Stop: 1315 Procedure: EGD - THERAPEUTIC, EUS, OR TUBE INTERVENTIONS Diagnosis: Periumbilical abdominal pain (Epigastric abdominal pain) Scheduled Providers: Xavier Mark MD Responsible Provider: Vida Barroso MD Anesthesia Type: MAC ASA Status: 3 Anesthesia Type: MAC Last Vitals Vitals Value Taken Time BP 138/85 01/02/25 1430 Temp 36.9 ?C (98.4 ?F) 01/02/25 1415 HR SpO2 93 01/02/25 1435 Resp 14 01/02/25 1435 SpO2 99 % 01/02/25 1435 Vitals shown include unfiled device data. Post Anesthesia Patient Status Patient Evaluation: PACU. PACU/ICU Patient Condition: stable. Anticipated Disposition: phase 2 then home. Neurological Status: aware and responsive. Pulmonary Status: breathing comfortably on room air Airway Control: returned to baseline unsupported. Cardiovascular Status: stable. Pain Management: clinically adequate Postoperative Hydration: acceptable. Intraoperative Events: no significant anesthesia events Post Operative Nausea/Vomiting Status: no significant post operative nausea or vomiting Recommendation: continue current plan of care. Anesthesia Observations No Documentation SIGNATURE: Vida Barton MD PATIENT NAME: Addis Torres DATE: January 02, 2025 TIME: 3:31 PM CSN: [id number] Normal [facility] ANES PRE-OPon 01-02-2025 ANES PRE-OP HNO ID: [id number] Author: VIDA BARROSO MD Service: Critical Care Author Type: Anesthesiologist Type: Anesthesia Preprocedure Evaluation Filed: 01/02/2025 12:07 Note Text: ANESTHESIOLOGY DAY OF SURGERY NOTE : 2000 Procedure Information Date/Time: 01/02/25 1130 Scheduled providers: Xavier Mark MD; Laverne Colin AA; Vida Barroso MD Procedure: EGD - THERAPEUTIC, EUS, OR TUBE INTERVENTIONS Location: [facility]oscopy - ENDO Estimated body mass index is 32.56 kg/m? as calculated from the following: Height as of 12/23/24: 170.2 cm (5' 7). Weight as of 12/23/24: 94.3 kg (207 lb 14.4 oz). Most recent hematocrit and potassium results: Hematocrit 31.7 12/06/2024 Potassium 3.4 12/10/2024 Relevant Problems ANESTHESIA (-) History of anesthesia complications Gastrointestinal (+) Cyclic vomiting syndrome Psychiatry (+) Cannabis use disorder I - PHYSICAL EVALUATION AIRWAY Patient intubated: No. Tracheostomy tube not present Mallampati: II. TM distance: >3 FB. Neck ROM: full ROM without neurological symptoms. Mouth opening: adequate. Short neck: yes. Thick neck: yes Additional exam findings: yes. CARDIOVASCULAR Rhythm: regular Rate: normal PULMONARY Breath sounds clear to auscultation. Other findings: S/p hysterectomy 2020 Nausea, no emesis in 24 hrs, no medication needed today. II - ANESTHESIA PLAN ASA Score: 3 Anesthetic Plan: MAC The patient is a current smoker. NPO Status: adequate Beta Festus Monitoring Plan Monitoring plan: standard ASA. Post Procedure Analgesic Plan Postoperative analgesic plan: per surgical service. Informed Consent Anesthetic risks, benefits, alternatives, personnel and consent discussed: yes. Patient / Responsible Alliance Party agrees to proceed: yes Patient / Surrogate agrees to blood products: blood products not planned DNR status not reviewed with patient and/or family prior to surgery. Significant changes in the patient condition since the History and Physical, not otherwise documented in primary service progress note: no. Potential Anesthesia issues that may suggest increased risk of complications or contraindication to planned procedure: none. No vitals data found for the desired time range. Outpatient Medications as of 01/02/2025 Medication Sig - docusate sodium (COLACE) 100 mg capsule 100 mg. - haloperidol (HALDOL) 2 mg tablet Take 2 mg by mouth. - OLANZapine (ZYPREXA) 5 mg tablet Take 5 mg by mouth. - methocarbamol (ROBAXIN) 500 mg tablet Take 500 mg by mouth four times daily. - HYOSCYAMINE ORAL Take by mouth. - pantoprazole DR (PROTONIX) 40 mg tablet Take 1 tablet by mouth two times a day before meals at 6 am and 4 pm. - dicyclomine (BENTYL) 10 mg capsule Take 1 capsule by mouth before meals and at bedtime. - acetaminophen (TYLENOL) 500 mg tablet Take 2 tablets by mouth every 8 hours. - amitriptyline (ELAVIL) 10 mg tablet Take 10 mg by mouth daily at bedtime. - HYDROcodone-acetaminophen (NORCO) 5-325 mg per tablet TAKE 1 TABLET BY MOUTH 4 TIMES A DAY FOR 3 DAYS NEEDED FOR PAIN - ibuprofen (MOTRIN) 600 mg tablet Take 600 mg by mouth. - metoclopramide HCl (REGLAN) 10 mg tablet Take 10 mg by mouth. - ondansetron orally disintegrating (ZOFRAN ODT) 4 mg disintegrating tablet dissolve 1 tablet ON THE TONGUE every 6 hours if needed for nausea or vomiting - traZODone (DESYREL) 50 mg tablet take 1 tablet by mouth at bedtime if needed for sleep / insomnia - gabapentin (NEURONTIN) 600 mg tablet Take 1 tablet by mouth three times a day for 30 days. - mirtazapine orally disintegrating (REMERON SOLTAB) 30 mg disintegrating tablet Take 1 tablet by mouth daily at bedtime. - polyethylene glycol 3350 17 gram packet Take 1 Packet by mouth once daily. Dissolve dose in 4 - 8 ounces of liquid and take as directed. (Patient not taking: Reported on 12/23/2024) - scopolamine (TRANSDERM-SCOP) patch 1.5 mg/72 hr (delivers 1 mg over 3 days) Apply 1 Patch as directed every 72 hours. - methyl salicylate-menthol (ICY HOT) 30-10 % cream Apply to affected area four times a day as needed (pain). (Patient not taking: Reported on 12/05/2024) - ergocalciferol 50,000 unit capsule (VITAMIN D2, DRISDOL) Take 1 capsule one time a week for 8 doses. - senna-docusate (SENNA-S) 8.6-50 mg per tablet Take 1 tablet by mouth two times a day. (Patient not taking: Reported on 12/05/2024) No current facility-administered medications on file as of 01/02/2025. I have interviewed and examined the patient. I have reviewed the medical record and/or the pre-anesthesia evaluation, pertinent labs, and test results. This contains updated information obtained within 48 hours of Surgery/Procedure. SIGNATURE: Vida Barton MD PATIENT NAME: Addis Torres DATE: January 02, 2025 TIME: 11:48 AM CSN: [id number] Normal [facility] EGD Study observation Narrtino thorne 01-02-2025 [facility] Gastrointestinal Endoscopy Patient Name: Addis Torres Procedure Date: 01/02/2025 12:50 PM Date of : 2000 Admit Type: Outpatient Age: 24 Room: [place] [address] Gender: Female Note Status: Finalized Attending MD: Xavier Mark MD, [id number] Procedure: Upper EUS Indications: Epigastric abdominal pain Providers: Xavier Mark MD, Franco York, EMY, Chrystal Mittal RN (Assisting Nurse) Patient Profile: This is a 24 year old female. Referring Physician: Nino Butler MD (Referring MD) Medicines: Monitored Anesthesia Care Complications: No immediate complications. Procedure: Pre-Anesthesia Assessment: - Prior to the procedure, a History and Physical was performed, and patient medications and allergies were reviewed. The patient's tolerance of previous anesthesia was also reviewed. The risks and benefits of the procedure and the sedation options and risks were discussed with the patient. All questions were answered, and informed consent was obtained. Prior Anticoagulants: The patient has taken no anticoagulant or antiplatelet agents. ASA Grade Assessment: II - A patient with mild systemic disease. After reviewing the risks and benefits, the patient was deemed in satisfactory condition to undergo the procedure. After obtaining informed consent, the endoscope was passed under direct vision. Throughout the procedure, the patient's blood pressure, pulse, and oxygen saturations were monitored continuously. The Endoscope was introduced through the mouth, and advanced to the second part of duodenum. The upper EUS was accomplished without difficulty. The patient tolerated the procedure well. Moderate Sedation: MAC anesthesia was administered by the anesthesia team. Total Procedure Duration: 0 hours 7 minutes 31 seconds Findings: ENDOSCOPIC FINDING: : The entire examined stomach was endoscopically normal. The examined duodenum was endoscopically normal. ENDOSONOGRAPHIC FINDING: : Endosonographic imaging of the pancreas showed sonographic changes indicative of moderate chronic pancreatitis in the entire pancreas. The parenchyma had lobularity with honeycombing. The pancreatic duct had a normal endosonographic appearance. Celiac plexus block was performed. The region of the celiac plexus and celiac ganglia was identified endosonographically with Color Doppler imaging, using the take-off of the celiac trunk from the anterior aspect of the aorta as the main anatomical landmark. Color Doppler guidance was also used to confirm a lack of significant vascular structures within the injection needle path. Using a transgastric approach, a 22 gauge needle was advanced to the area of the celiac ganglia. Needle aspiration was performed prior to injection to exclude entry into a blood vessel. A total of 20 mL of 0.25% ropivicaine was injected for the celiac plexus block. The needle was then withdrawn. There was no sign of significant endosonographic abnormality in the common bile duct. No stones and no biliary sludge were identified. Impression: - Endosonographic imaging of the pancreas showed sonographic changes suggestive of moderate chronic pancreatitis. - Celiac plexus block performed. Recommendation: - Return to referring physician. Procedure Code(s): --- Professional --- 54155, Esophagogastroduodenoscop y, flexible, transoral; with transendoscopic ultrasound-guided transmural injection of diagnostic or therapeutic substance(s) (eg, anesthetic, neurolytic agent) or fiducial marker(s) (includes endoscopic ultrasound examination of the esophagus, stomach, and either the duodenum or a surgically altered stomach where the jejunum is examined distal to the anastomosis) Diagnosis Co (more content not included)... PROVATION [facility] Radiology Study observation (narrative) Ernesto laurent [facility] HISTORY PHYSICALon HISTORY PHYSICAL HNO ID: [id number] Author: XAVIER MARK MD Service: Gastroenterology Author Type: Physician Type: H&P Filed: 01/02/2025 12:30 Note Text: HISTORY AND PHYSICAL Addis Torres, 24 year old female Current history and physical on file: Yes Is a new History and Physical required for today's visit? Yes Indication for procedure: Other abdominal pain PROCEDURE(S) SCHEDULED FOR: EUS/FNA (Endoscopic Ultrasound with or without Fine Needle Aspiration), based on clinical findings. Celiac plexus block BASELINE BEHAVIOR: Calm BASELINE ORIENTATION: A AND O x3 All medications and allergies reviewed: Yes Skin Assessment: Warm dry mucus membranes pink Airway/Respiratory Assessment: Airway: visualization of the uvula- Yes Mouth: opening greater than 2 fingerbreadths- Yes Neck: full range of motion- Yes Breath sounds clear/equal- Yes Cardiac Assessment: Regular rate and rhythm without murmur Abdominal Assessment: Abdomen soft, non-tender, no masses or organomegaly. Sedation Plan: Deep Additional Comments: None Xavier Mark MD [facility] Upper EUSon 01-02-2025 [facility] EUS [facility] Gastrointestinal Endoscopy Patient Name: Addis Torres Procedure Date: 01/02/2025 12:50 PM Date of : 2000 Admit Type: Outpatient Age: 24 Room: [place] [address] Gender: Female Note Status: Finalized Attending MD: Xavier Mark MD, [id number] Procedure: Upper EUS Indications: Epigastric abdominal pain Providers: Xavier Mark MD, Franco York, EMY, Chrystal Mittal RN (Assisting Nurse) Patient Profile: This is a 24 year old female. Referring Physician: Nino Butler MD (Referring MD) Medicines: Monitored Anesthesia Care Complications: No immediate complications. Procedure: Pre-Anesthesia Assessment: - Prior to the procedure, a History and Physical was performed, and patient medications and allergies were reviewed. The patient's tolerance of previous anesthesia was also reviewed. The risks and benefits of the procedure and the sedation options and risks were discussed with the patient. All questions were answered, and informed consent was obtained. Prior Anticoagulants: The patient has taken no anticoagulant or antiplatelet agents. ASA Grade Assessment: II - A patient with mild systemic disease. After reviewing the risks and benefits, the patient was deemed in satisfactory condition to undergo the procedure. After obtaining informed consent, the endoscope was passed under direct vision. Throughout the procedure, the patient's blood pressure, pulse, and oxygen saturations were monitored continuously. The Endoscope was introduced through the mouth, and advanced to the second part of duodenum. The upper EUS was accomplished without difficulty. The patient tolerated the procedure well. Moderate Sedation: MAC anesthesia was administered by the anesthesia team. Total Procedure Duration: 0 hours 7 minutes 31 seconds Findings: ENDOSCOPIC FINDING: : The entire examined stomach was endoscopically normal. The examined duodenum was endoscopically normal. ENDOSONOGRAPHIC FINDING: : Endosonographic imaging of the pancreas showed sonographic changes indicative of moderate chronic pancreatitis in the entire pancreas. The parenchyma had lobularity with honeycombing. The pancreatic duct had a normal endosonographic appearance. Celiac plexus block was performed. The region of the celiac plexus and celiac ganglia was identified endosonographically with Color Doppler imaging, using the take-off of the celiac trunk from the anterior aspect of the aorta as the main anatomical landmark. Color Doppler guidance was also used to confirm a lack of significant vascular structures within the injection needle path. Using a transgastric approach, a 22 gauge needle was advanced to the area of the celiac ganglia. Needle aspiration was performed prior to injection to exclude entry into a blood vessel. A total of 20 mL of 0.25% ropivicaine was injected for the celiac plexus block. The needle was then withdrawn. There was no sign of significant endosonographic abnormality in the common bile duct. No stones and no biliary sludge were identified. Impression: - Endosonographic imaging of the pancreas showed sonographic changes suggestive of moderate chronic pancreatitis. - Celiac plexus block performed. Recommendation: - Return to referring physician. Procedure Code(s): --- Professional --- 87654, Esophagogastroduodenoscop y, flexible, transoral; with transendoscopic ultrasound-guided transmural injection of diagnostic or therapeutic substance(s) (eg, anesthetic, neurolytic agent) or fiducial marker(s) (includes endoscopic ultrasound examination of the esophagus, stomach, and either the duodenum or a surgically altered stomach where the jejunum is examined distal to the anastomosis) Diagnosis Code(s): --- Professional --- R10.13, Epigastric pain R93.3, Abnormal findings on diagnostic imaging of other parts of digestive tract CPT copyright 2020 [employer]. All rights reserved. The codes documented in this report are preliminary and upon wharf tender review may be revised to meet current compliance requirements. Attending Participation: I personally performed the entire procedure. Scope In: 12:57:04 PM Scope Out: 1:04:35 PM MD Xavier Rodriguez MD 01/02/2025 1:07:20 PM This report has been signed electronically by Xavier Mark MD Number of Addenda: 0 Note Initiated On: 01/02/2025 12:50 PM Estimated Blood Loss: Estimated blood loss: none. [facility] 12-30-2024 CNPN Telephone (FVENDO) ----- ADDIS TORRES ([id number]) 1 F Date Time Provider Department 12/30/24 XAVIER MARK During your visit today, we recorded the following information about you: Jacobo Minaya RN 12/30/2024 9:25 AM Signed Spoke with patient and confirmed procedure arrival time 1030am for egd-eus appointment. When you arrive please go to admitting/registration first, then you will be directed to the Endoscopy Dept.on the 2nd floor. If you have any questions about your appointment or your prep instructions please call [phone]. If you need to reschedule call [phone]. Allergies As of Date: 12/30/2024 Noted Allergy Reaction LACTATED RINGERS 07/29/2024 9 - Itching 14 - Other: See Comments Comments: reddness PHENERGAN (PROMETHAZINE) 01/15/2021 11 - Vomiting ROCEPHIN (CEFTRIAXONE) 07/29/2024 16 - Unknown Date Reviewed: 12/23/2024 Reviewed by: Amber Rodriguez OCCA - Fully Assessed Prescriptions as of 12/30/2024 - amitriptyline (ELAVIL) 10 mg tablet Take 10 mg by mouth daily at bedtime. - docusate sodium (COLACE) 100 mg capsule 100 mg. - haloperidol (HALDOL) 2 mg tablet Take 2 mg by mouth. - HYDROcodone-acetaminophen (NORCO) 5-325 mg per tablet TAKE 1 TABLET BY MOUTH 4 TIMES A DAY FOR 3 DAYS NEEDED FOR PAIN - ibuprofen (MOTRIN) 600 mg tablet Take 600 mg by mouth. - metoclopramide HCl (REGLAN) 10 mg tablet Take 10 mg by mouth. - OLANZapine (ZYPREXA) 5 mg tablet Take 5 mg by mouth. - ondansetron orally disintegrating (ZOFRAN ODT) 4 mg disintegrating tablet dissolve 1 tablet ON THE TONGUE every 6 hours if needed for nausea or vomiting - traZODone (DESYREL) 50 mg tablet take 1 tablet by mouth at bedtime if needed for sleep / insomnia - methocarbamol (ROBAXIN) 500 mg tablet Take 500 mg by mouth four times daily. - HYOSCYAMINE ORAL Take by mouth. - gabapentin (NEURONTIN) 600 mg tablet Take 1 tablet by mouth three times a day for 30 days. - mirtazapine orally disintegrating (REMERON SOLTAB) 30 mg disintegrating tablet Take 1 tablet by mouth daily at bedtime. - pantoprazole DR (PROTONIX) 40 mg tablet Take 1 tablet by mouth two times a day before meals at 6 am and 4 pm. - polyethylene glycol 3350 17 gram packet Take 1 Packet by mouth once daily. Dissolve dose in 4 - 8 ounces of liquid and take as directed. - scopolamine (TRANSDERM-SCOP) patch 1.5 mg/72 hr (delivers 1 mg over 3 days) Apply 1 Patch as directed every 72 hours. - dicyclomine (BENTYL) 10 mg capsule Take 1 capsule by mouth before meals and at bedtime. - methyl salicylate-menthol (ICY HOT) 30-10 % cream Apply to affected area four times a day as needed (pain). - acetaminophen (TYLENOL) 500 mg tablet Take 2 tablets by mouth every 8 hours. - ergocalciferol 50,000 unit capsule (VITAMIN D2, DRISDOL) Take 1 capsule one time a week for 8 doses. - senna-docusate (SENNA-S) 8.6-50 mg per tablet Take 1 tablet by mouth two times a day. Problem List As Of Date 12/30/2024 Noted Resolved Hematuria, gross [R31.0] 01/19/2021 Chronic abdominal pain [R10.9, G89.29] 07/29/2024 Hypokalemia [E87.6] 07/30/2024 Hyponatremia [E87.1] 07/30/2024 Gastroparesis [K31.84] 07/30/2024 09/05/2024 Nausea and vomiting [R11.2] 07/30/2024 Malnutrition of moderate degree (HCC) [E44.0] 08/06/2024 Obesity, Class I, BMI 30-34.9 [E66.811] 08/09/2024 Chronic cholecystitis [K81.1] 08/12/2024 Epigastric pain [R10.13] 08/12/2024 Pancreas divisum [Q45.3] 08/14/2024 Cannabis use disorder [F12.90] 07/20/2024 Anxiety disorder [F41.9] 03/10/2021 Endometrial adenocarcinoma (HCC) [C54.1] 10/04/2021 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 Polycystic ovary syndrome [E28.2] 03/26/2021 Hx laparoscopic cholecystectomy [Z90.49] 08/14/2024 Malnutrition of mild degree (HCC) [E44.1] 08/18/2024 Chest pain on breathing [R07.1] 08/18/2024 09/05/2024 Vitamin D deficiency [E55.9] 08/19/2024 Hypophosphataemia [E83.39] 08/20/2024 09/05/2024 Obesity, Class II, BMI 35-39.9 [E66.812] 08/22/2024 At high risk for self harm [R45.89] 08/26/2024 Adjustment disorder with anxious mood [F43.22] 08/29/2024 Brachial vein thrombosis, 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] 09/05/2024 Prolonged Q-T interval on ECG [R94.31] 10/06/2024 10/14/2024 Dehydration [E86.0] 10/06/2024 Hepatic steatosis [K76.0] 10/06/2024 Cyclic vomiting syndrome [R11.15] 10/07/2024 Chronic pain syndrome [G89.4] 10/07/2024 At risk for delirium [Z91.89] 10/10/2024 Moderate episode of recurrent major depressive *10/13/2024 Frequent hospital admissions [Z78.9] 10/14/2024 Chronic post-traumatic stress disorder (PTSD) [*12/08/2024 Encounter Status:Closed by JACOBO MINAYA on 12/30/24 [facility] .Auto Diffon 12-27-2024 Basophil, Absolute 0.0 10 3/mcL Normal 0.0-0.3 [facility] Comment on above: Performed By: #### A DIFF, CMP, GFR, CBC, ANEU, MG, MDW, LIP #### [address] [address] Basophils/100 WBC (Bld) 0.6 % Normal 0.0-2.5 [facility] Comment on above: Performed By: #### A DIFF, CMP, GFR, CBC, ANEU, MG, MDW, LIP #### [address] [address] Eosinophil, Absolute 0.1 10 3/mcL Normal 0.0-0.7 [facility] Comment on above: Performed By: #### A DIFF, CMP, GFR, CBC, ANEU, MG, MDW, LIP #### [address] [address] Eosinophils/100 WBC (Bld) 1.3 % Normal 0.0-6.0 [facility] Comment on above: Performed By: #### A DIFF, CMP, GFR, CBC, ANEU, MG, MDW, LIP #### [address] [address] Lymphocyte, Absolute 1.0 10 3/mcL Normal 0.9-4.3 [facility] Comment on above: Performed By: #### A DIFF, CMP, GFR, CBC, ANEU, MG, MDW, LIP #### [address] [address] Lymphocytes/100 WBC (Bld) 13.1 % Low 20.0-40.0 [facility] Comment on above: Performed By: #### A DIFF, CMP, GFR, CBC, ANEU, MG, MDW, LIP #### [address] [address] Monocyte, Absolute 0.3 10 3/mcL Normal 0.1-1.4 [facility] Comment on above: Performed By: #### A DIFF, CMP, GFR, CBC, ANEU, MG, MDW, LIP #### [address] [address] Monocytes/100 WBC (Bld) 4.4 % Normal 2.0-13.0 [facility] Comment on above: Performed By: #### A DIFF, CMP, GFR, CBC, ANEU, MG, MDW, LIP #### [address] [address] Neutrophils/100 WBC (Bld) 80.6 % High 50.0-75.0 [facility] Comment on above: Performed By: #### A DIFF, CMP, GFR, CBC, ANEU, MG, MDW, LIP #### [address] [address] .GFRon 12-27-2024 GFR/1.73 sq M.predicted among non-blacks MDRD (S/P/Bld) [Vol rate/Area] mL/min/{1.73_m2} Normal [facility] Comment on above: Result Comment: Stages of Chronic Kidney Disease (CKD) Stage Description eGFR(ml/min/1.73 sq.m.) CKD 1 Normal kidney function or >=90 normal kindney function with possible kidney damage (ex. Proteinuria) CKD 2 Kidney damage with mild loss 60-89 of kidney function CKD 3a Mild to moderate loss of kidney 45-59 function CKD 3b Moderate to severe loss of 30-44 of kindey function CKD 4 Severe loss of kidney function 15-29 CKD 5 Kidney failure <15 Note: (go live 2024) the eGFR calculation was updated to the 2020 CKD-EPI creatinine equation without a race factor to calculate the eGFR results. Performed By: #### U MICKI Wagner PREGU #### [place] [address] .MDWon 12-27-2024 Monocyte Distribution Width 16.54 Normal 0.00-20.00 [facility] Comment on above: Result Comment: For ED adult patients suspected of sepsis, MDW<=20.0 does not rule out sepsis or risk of sepsis Performed By: #### A DIFF, CMP, GFR, CBC, ANEU, MG, MDW, LIP #### [place] [address] .NEUABSon 12-27-2024 Neutrophil, Absolute 6.0 10 3/mcL Normal 2.3-8.1 [facility] Comment on above: Performed By: #### A DIFF, CMP, GFR, CBC, ANEU, MG, MDW, LIP #### [place] [address] CBCon 12-27-2024 Erythrocyte distribution width (RBC) [Ratio] 16.4 % High 11.5-15.5 [facility] Comment on above: Performed By: #### A DIFF, CMP, GFR, CBC, ANEU, MG, MDW, LIP #### [place] [address] Hematocrit (Bld) [Volume fraction] 35.3 % Normal 34.0-46.0 [facility] Comment on above: Performed By: #### A DIFF, CMP, GFR, CBC, ANEU, MG, MDW, LIP #### [place] [address] Hgb 11.3 G/dL Low 12.0-16.0 [facility] Comment on above: Performed By: #### A DIFF, CMP, GFR, CBC, ANEU, MG, MDW, LIP #### [place] [address] MCH (RBC) [Entitic mass] 23.9 pg Low 27.0-33.0 [facility] Comment on above: Performed By: #### A DIFF, CMP, GFR, CBC, ANEU, MG, MDW, LIP #### [address] [address] MCHC 32.0 G/dL Normal 32.0-36.0 [facility] Comment on above: Performed By: #### A DIFF, CMP, GFR, CBC, ANEU, MG, MDW, LIP #### [address] [address] MCV (RBC) [Entitic vol] 74.5 fL Low 80.0-99.0 [facility] Comment on above: Performed By: #### A DIFF, CMP, GFR, CBC, ANEU, MG, MDW, LIP #### [address] [address] Platelet 254 10 3/mcL Normal 150-450 [facility] Comment on above: Performed By: #### A DIFF, CMP, GFR, CBC, ANEU, MG, MDW, LIP #### [address] [address] Platelet mean volume (Bld) [Entitic vol] 6.9 fL Normal 6.6-10.5 [facility] Comment on above: Performed By: #### A DIFF, CMP, GFR, CBC, ANEU, MG, MDW, LIP #### [address] [address] RBC 4.74 10 6/mcL Normal 4.10-5.30 [facility] Comment on above: Performed By: #### A DIFF, CMP, GFR, CBC, ANEU, MG, MDW, LIP #### [address] [address] WBC 7.4 10 3/mcL Normal 4.5-10.8 [facility] Comment on above: Performed By: #### A DIFF, CMP, GFR, CBC, ANEU, MG, MDW, LIP #### [place] [id number] CMPon 12-27-2024 Albumin Level 4.1 G/dL Normal 3.5-5.0 [facility] Comment on above: Performed By: #### A DIFF, CMP, GFR, CBC, ANEU, MG, MDW, LIP #### [place] [address] Albumin/Globulin [Mass ratio] 1.1 {ratio} Normal 1.1-2.5 [facility] Comment on above: Performed By: #### A DIFF, CMP, GFR, CBC, ANEU, MG, MDW, LIP #### [place] [address] ALP [Catalytic activity/Vol] 63 U/L Normal 40-135 [facility] Comment on above: Performed By: #### A DIFF, CMP, GFR, CBC, ANEU, MG, MDW, LIP #### [place] [address] ALT [Catalytic activity/Vol] 24 U/L Normal 14-59 [facility] Comment on above: Performed By: #### A DIFF, CMP, GFR, CBC, ANEU, MG, MDW, LIP #### [place] [address] AST [Catalytic activity/Vol] 19 U/L Normal 10-40 [facility] Comment on above: Performed By: #### A DIFF, CMP, GFR, CBC, ANEU, MG, MDW, LIP #### [place] [address] Bili Total 0.4 mg/dL Normal 0.2-1.0 [facility] Comment on above: Result Comment: Use of this assay is not recommended for patients undergoing treatment with eltrombopag due to the potential for falsely elevated results. Performed By: #### A DIFF, CMP, GFR, CBC, ANEU, MG, MDW, LIP #### [place] [address] BUN/Creatinine Ratio 11 ratio Normal 7-27 [facility] Comment on above: Performed By: #### A DIFF, CMP, GFR, CBC, ANEU, MG, MDW, LIP #### [place] [address] Calcium [Mass/Vol] 9.2 mg/dL Normal 8.4-10.2 [facility] Comment on above: Performed By: #### A DIFF, CMP, GFR, CBC, ANEU, MG, MDW, LIP #### [place] [address] Chloride [Moles/Vol] 104 mmol/L Normal 98-107 [facility] Comment on above: Performed By: #### A DIFF, CMP, GFR, CBC, ANEU, MG, MDW, LIP #### [place] [address] CO2 [Moles/Vol] 27 mmol/L Normal 22-29 [facility] Comment on above: Performed By: #### A DIFF, CMP, GFR, CBC, ANEU, MG, MDW, LIP #### [place] [address] Creatinine [Mass/Vol] 0.57 mg/dL Normal 0.51-0.95 [facility] Comment on above: Performed By: #### A DIFF, CMP, GFR, CBC, ANEU, MG, MDW, LIP #### [place] [address] Electrolyte Balance 8.0 mEq/L Normal 4.0-15.0 [facility] Comment on above: Performed By: #### A DIFF, CMP, GFR, CBC, ANEU, MG, MDW, LIP #### [place] [address] Globulin 3.8 G/dL Normal 1.5-3.8 [facility] Comment on above: Performed By: #### A DIFF, CMP, GFR, CBC, ANEU, MG, MDW, LIP #### [place] [address] Glucose [Mass/Vol] 97 mg/dL Normal 70-105 [facility] Comment on above: Performed By: #### A DIFF, CMP, GFR, CBC, ANEU, MG, MDW, LIP #### [address] [address] Potassium [Moles/Vol] 3.6 mmol/L Normal 3.5-5.1 [facility] Comment on above: Performed By: #### A DIFF, CMP, GFR, CBC, ANEU, MG, MDW, LIP #### [address] [address] Sodium [Moles/Vol] 139 mmol/L Normal 136-145 [facility] Comment on above: Performed By: #### A DIFF, CMP, GFR, CBC, ANEU, MG, MDW, LIP #### [address] [address] Total Protein 7.9 G/dL Normal 6.4-8.2 [facility] Comment on above: Performed By: #### A DIFF, CMP, GFR, CBC, ANEU, MG, MDW, LIP #### [address] [address] Urea nitrogen [Mass/Vol] 6 mg/dL Low 7-18 [facility] Comment on above: Performed By: #### A DIFF, CMP, GFR, CBC, ANEU, MG, MDW, LIP #### [address] [address] LABORATORYOrdered By: Augusto Terry on 12-27-2024 Appearance (U) Clear (12/27/24 7:30 PM) Normal Clear AO Auto Urine SS Bilirubin Ql (U) Negative (12/27/24 7:30 PM) Normal Negative AO Auto Urine SS Color (U) Yellow (12/27/24 7:30 PM) Normal AO Auto Urine SS Glucose Test strip (U) [Mass/Vol] Negative Normal Negative AO Auto Urine SS HCG ( test) Ql Negative (12/27/24 7:30 PM) Normal AO Manual Urine SS Hemoglobin Auto test strip (U) [Mass/Vol] Negative (12/27/24 7:30 PM) Normal Negative AO Auto Urine SS Ketones Ql (U) 15 mg/dL Invalid Interpretation Code Negative AO Auto Urine SS test (u) int Not detected Invalid Interpretation Code AO Manual Urine SS UA Leuk Est Negative (12/27/24 7:30 PM) Normal Negative AO Auto Urine SS UA Nitrite Negative (12/27/24 7:30 PM) Normal Negative AO Auto Urine SS UA pH 8.0 (12/27/24 7:30 PM) Normal 5.0 - 8.0 AO Auto Urine SS UA Protein Trace mg/dL Normal Negative AO Auto Urine SS UA Spec Grav 1.010 *ABN* (12/27/24 7:30 PM) Invalid Interpretation Code 1.015-1.02 5 AO Auto Urine SS UA Specimen Type Clean Catch (12/27/24 7:30 PM) Normal AO Auto Urine SS UA Urobilinogen 0.2 E.U./dL Normal 0.2-1.0 AO Auto Urine SS LABORATORYOrdered By: SYSTEM SYSTEM on 12-27-2024 Albumin BCP dye [Mass/Vol] 4.1 G/dL Normal 3.5 - 5.0 G/dL AO ADM SS Albumin/Globulin [Mass ratio] 1.1 {ratio} Normal 1.1 - 2.5 ratio AO ADM SS ALP [Catalytic activity/Vol] 63 U/L Normal 40 - 135 U/L AO ADM SS ALT With P-5'-P [Catalytic activity/Vol] 24 U/L Normal 14 - 59 U/L AO ADM SS AST With P-5'-P [Catalytic activity/Vol] 19 U/L Normal 10 - 40 U/L AO ADM SS Basophils (Bld) [#/Vol] 0.0 103/mcL Normal 0.0 - 0.3 10^3/mcL AO Workflow SS Basophils/100 WBC (Bld) 0.6 % Normal 0.0 - 2.5 % AO Workflow SS Bilirubin [Mass/Vol] 0.4 mg/dL Normal 0.2 - 1 .0 mg/dL AO ADM SS Comment on above: Interpretive Data: U se of this assay is not recommended for patients undergoing treatment with eltrombopag due to the potential for falsely elevated results. Calcium [Mass/Vol] 9.2 mg/dL Normal 8.4 - 10. 2 mg/dL AO ADM SS Chloride [Moles/Vol] 104 mmol/L Normal 98 - 10 7 mmol/L AO ADM SS CO2 [Moles/Vol] 27 mmol/L Normal 22 - 29 mmol/L AO ADM SS Creatinine [Mass/Vol] 0.57 mg/dL Normal 0.51 - 0.95 mg/dL AO ADM SS Electrolyte Balance 8.0 mEq/L Normal 4.0 - 15 .0 mEq/L AO ADM SS Eosinophil, Absolute 0.1 103/mcL Normal 0.0 - 0 .7 10^3/mcL AO Workflow SS Eosinophils/100 WBC (Bld) 1.3 % Normal 0.0 - 6.0 % AO Workflow SS Erythrocyte distribution width (RBC) [Ratio] 16.4 % High 11.5 - 15.5 % AO Workflow SS Estimated Glomerular Filtration Rate ml/min/1.73sqm Invalid Interpretation Code AO Chemistry S Comment on above: Interpretive Data: Stages of Chronic Kidney Disease (CKD) Stage Description eGFR(ml/min/1.73 sq.m.) CKD 1 Normal kidney function or >=90 normal kindney function with possible kidney damage (ex. Proteinuria) CKD 2 Kidney damage with mild loss 60-89 of kidney function CKD 3a Mild to moderate loss of kidney 45-59 function CKD 3b Moderate to severe loss of 30-44 of kindey function CKD 4 Severe loss of kidney function 15-29 CKD 5 Kidney failure <15 Note: (go live 2024) the eGFR calculation was updated to the 2020 CKD-EPI creatinine equation without a race factor to calculate the eGFR results. Globulin 3.8 G/dL Normal 1.5 - 3.8 G/dL AO ADM SS Glucose [Mass/Vol] 97 mg/dL Normal 70 - 105 mg/dL AO ADM SS Hematocrit (Bld) [Volume fraction] 35.3 % Normal 34.0 - 46.0 % AO Workflow SS Hemoglobin (Bld) [Mass/Vol] 11.3 G/dL Low 12.0 - 16.0 G/dL AO Workflow SS Lipase [Catalytic activity/Vol] 22 U/L Normal 16 - 77 U/L AO ADM SS Lymphocytes (Bld) [#/Vol] 1.0 103/mcL Normal 0.9 - 4.3 10^3/mcL AO Workflow SS Lymphocytes/100 WBC (Bld) 13.1 % Low 20.0 - 40.0 % AO Workflow SS Magnesium [Mass/Vol] 1.8 mg/dL Normal 1.8 - 2 .4 mg/dL AO ADM SS MCH (RBC) [Entitic mass] 23.9 pg Low 27. 0 - 33.0 pg AO Workflow SS MCHC 32.0 G/dL Normal 32.0 - 36.0 G/dL AO Workflow SS MCV (RBC) [Entitic vol] 74.5 fL Low 80.0 - 99.0 fL AO Workflow SS Monocyte distribution width Auto (Bld) [Entitic vol] 16.54 1 Normal 0.00 - 20.00 AO Workflow SS Comment on above: Result Comment: For ED adult patients suspected of sepsis, MDW<=20.0 does not rule out sepsis or risk of sepsis Monocytes (Bld) [#/Vol] 0.3 103/mcL Normal 0.1 - 1.4 10^3/mcL AO Workflow SS Monocytes/100 WBC (Bld) 4.4 % Normal 2.0 - 13.0 % AO Workflow SS Neutrophils (Bld) [#/Vol] 6.0 103/mcL Normal 2.3 - 8.1 10^3/mcL AO Workflow SS Neutrophils/100 WBC (Bld) 80.6 % High 50.0 - 75.0 % AO Workflow SS Platelet mean volume (Bld) [Entitic vol] 6.9 fL Normal 6.6 - 10.5 fL AO Workflow SS Platelets (Bld) [#/Vol] 254 103/mcL Normal 150 - 450 10^3/mcL AO Workflow SS Potassium [Moles/Vol] 3.6 mmol/L Normal 3.5 - 5.1 mmol/L AO ADM SS Protein [Mass/Vol] 7.9 G/dL Normal 6.4 - 8.2 G/dL AO ADM SS RBC (Bld) [#/Vol] 4.74 106/mcL Normal 4.10 - 5.30 10^6/mcL AO Workflow SS Sodium [Moles/Vol] 139 mmol/L Normal 136 - 145 mmol/L AO ADM SS Urea nitrogen [Mass/Vol] 6 mg/dL Low 7 - 18 mg/dL AO ADM SS Urea nitrogen/Creatinine [Mass ratio] 11 ratio Normal 7 - 27 ratio AO ADM SS WBC (Bld) [#/Vol] 7.4 103/mcL Normal 4.5 - 10.8 10^3/mcL AO Workflow SS LIPon 12-27-2024 Lipase Level 22 U/L Normal 16-77 [facility] Comment on above: Performed By: #### A DIFF, CMP, GFR, CBC, ANEU, MG, MDW, LIP #### [address] [address] MGon 12-27-2024 Magnesium [Mass/Vol] 1.8 mg/dL Normal 1.8-2.4 [facility] Comment on above: Performed By: #### A DIFF, CMP, GFR, CBC, ANEU, MG, MDW, LIP #### [place] [address] PREGUon 12-27-2024 HCG ( test) Ql (U) Negative Normal [facility] Comment on above: Performed By: #### A DIFF, CMP, GFR, CBC, ANEU, MG, MDW, LIP #### [place] [address] test (u) int Not detected Invalid Interpretation Code [facility] Comment on above: Performed By: #### A DIFF, CMP, GFR, CBC, ANEU, MG, MDW, LIP #### [address] [address] UAon 12-27-2024 Color (U) Yellow Normal [facility] Comment on above: Performed By: #### A DIFF, CMP, GFR, CBC, ANEU, MG, MDW, LIP #### [address] [address] Glucose (U) [Mass/Vol] Negative Normal Negative [facility] Comment on above: Performed By: #### A DIFF, CMP, GFR, CBC, ANEU, MG, MDW, LIP #### [address] [address] Ketones Ql (U) 15 mg/dL Abnormal Negative [facility] Comment on above: Performed By: #### A DIFF, CMP, GFR, CBC, ANEU, MG, MDW, LIP #### [address] [address] UA Appear Clear Normal Clear [facility] Comment on above: Performed By: #### A DIFF, CMP, GFR, CBC, ANEU, MG, MDW, LIP #### [address] [address] UA Blood Negative Normal Negative [facility] Comment on above: Performed By: #### A DIFF, CMP, GFR, CBC, ANEU, MG, MDW, LIP #### [address] [address] UA Leuk Est Negative Normal Negative [facility] Comment on above: Performed By: #### A DIFF, CMP, GFR, CBC, ANEU, MG, MDW, LIP #### [address] [address] UA Nitrite Negative Normal Negative [facility] Comment on above: Performed By: #### A DIFF, CMP, GFR, CBC, ANEU, MG, MDW, LIP #### [address] [address] UA pH 8.0 Normal 5.0 - 8.0 [facility] Comment on above: Performed By: #### A DIFF, CMP, GFR, CBC, ANEU, MG, MDW, LIP #### [address] [address] UA Protein Trace Normal Negative [facility] Comment on above: Performed By: #### A DIFF, CMP, GFR, CBC, ANEU, MG, MDW, LIP #### [address] [address] UA Spec Grav 1.010 Abnormal 1.015-1.02 5 [facility] Comment on above: Performed By: #### A DIFF, CMP, GFR, CBC, ANEU, MG, MDW, LIP #### [address] [address] UA Specimen Type Clean Catch Normal [facility] Comment on above: Performed By: #### A DIFF, CMP, GFR, CBC, ANEU, MG, MDW, LIP #### [address] [address] UA Urobilinogen 0.2 E.U./dL Normal 0.2-1.0 [facility] Comment on above: Performed By: #### A DIFF, CMP, GFR, CBC, ANEU, MG, MDW, LIP #### [facility] [address], [place] [address] Urobilinogen (U) [Mass/Vol] Negative Normal Negative [facility] Comment on above: Performed By: #### A DIFF, CMP, GFR, CBC, ANEU, MG, MDW, LIP #### [facility] [address], [place] [address] CBC W Auto Differential pane l (Bld)Ordered By: Ayde Rodriguez on 12-18-2024 Basophils (Bld) [#/Vol] 0 10*3/uL 0.0 - 0.2 10*3/uL [facility] Basophils/100 WBC (Bld) 0.4 % 0.0 - 2.0 % [facility] Eosinophils (Bld) [#/Vol] 0.1 10*3/uL 0.0 - 0.5 10*3/uL [facility] Eosinophils/100 WBC (Bld) 1 % 0.0 - 6.0 % [facility] Erythrocyte distribution width (RBC) [Ratio] 16.2 % High 11.5 - 15.0 % [facility] Hematocrit (Bld) [Volume fraction] 36.7 % 35.0 - 47.0 % [facility] Hemoglobin (Bld) [Mass/Vol] 11.3 g/dL Low 11.7 - 16.0 g/dL [facility] Immature granulocytes (Bld) [#/Vol] 0 10*3/uL NINF - 0.1 10*3/uL [facility] Immature granulocytes/100 WBC (Bld) 0.4 % 0.0 - 2.0 % [facility] Interpretation and review of laboratory results Abnormal [facility] Lymphocytes (Bld) [#/Vol] 1.4 10*3/uL 1.0 - 4.3 10*3/uL [facility] Lymphocytes/100 WBC (Bld) 18.7 % 15.0 - 45.0 % [facility] MCH (RBC) [Entitic mass] 23.7 pg Low 26. 0 - 34.0 pg [facility] MCHC (RBC) [Mass/Vol] 30.8 % 30.5 - 36.0 % [facility] MCV (RBC) [Entitic vol] 77.1 fL 77.0 - 99.0 fL [facility] Monocytes (Bld) [#/Vol] 0.5 10*3/uL 0.0 - 0.9 10*3/uL [facility] Monocytes/100 WBC (Bld) 6.8 % 5.0 - 13.0 % [facility] Neutrophils (Bld) [#/Vol] 5.3 10*3/uL 1.8 - 7.5 10*3/uL [facility] Neutrophils/100 WBC (Bld) 72.7 % 38.0 - 82.0 % [facility] Nucleated RBC/100 WBC (Bld) [Ratio] 0 % [facility] Platelet mean volume (Bld) [Entitic vol] 9.2 fL 9.0 - 12.7 fL [facility] Platelets (Bld) [#/Vol] 353 10*3/uL 140 - 440 10*3/uL [facility] RBC (Bld) [#/Vol] 4.76 10*6/uL 3.80 - 5.20 10*6/uL [facility] WBC (Bld) [#/Vol] 7.3 10*3/uL 3.6 - 10.7 10*3/uL [facility] CBC WITH AUTO DIFFERENTIALon 12-18-2024 Basophils (Bld) [#/Vol] 0.0 10*3/uL Normal 0.0-0.2 [facility] Comment on above: Performed By: #### L [id number] ####[employer] Products Supervisor: KIMBERLY VIRGEN ([phone])[facility] ([address] Basophils/100 WBC (Bld) 0.4 % Normal 0.0-2.0 [facility] Comment on above: Performed By: #### L [id number] ####[employer] Supervisor: KIMBERLY VIRGEN ([phone])[facility])[address] [place] [address] Eosinophils (Bld) [#/Vol] 0.1 10*3/uL Normal 0.0-0.5 [facility] Comment on above: Performed By: #### L [id number] ####[employer] Supervisor: KIMBERLY [phone])[facility])[address] [place] [address] Eosinophils/100 WBC (Bld) 1.0 % Normal 0.0-6.0 [facility] Comment on above: Performed By: #### L [id number] ####[employer] Supervisor: KIMBERLY VIRGEN ([phone])[facility])[address] [place] [address] Erythrocyte distribution width (RBC) [Ratio] 16.2 % High 11.5-15.0 [facility] Comment on above: Performed By: #### L [id number] ####[employer] Supervisor: KIMBERLY VIRGEN ([phone])[address] Hematocrit (Bld) [Volume fraction] 36.7 % Normal 35.0-47.0 [facility] Comment on above: Performed By: #### L [id number] ####[employer] Supervisor: KIMBERLY VIRGEN ([phone])[facility])[address] [place] [address] Hemoglobin (Bld) [Mass/Vol] 11.3 g/dL Low 11.7-16.0 [facility] Comment on above: Performed By: #### L [id number] ####[employer] Supervisor: KIMBERLY VIRGEN ([phone])[facility])[address] [place] [address] IMMATURE GRANS % 0.4 % Normal 0.0-2.0 [facility] Comment on above: Performed By: #### L [id number] ####[employer] Supervisor: KIMBERLY VIRGEN ([phone])[facility])[address] [place] [address] IMMATURE GRANS ABSOLUTE 0.0 10*3/uL Normal <0.1 [facility] Comment on above: Performed By: #### L [id number] ####[employer] Supervisor: KIMBERLY VIRGEN ([phone])[facility])[address] [place] [address] [place] Lymphocytes (Bld) [#/Vol] 1.4 10*3/uL Normal 1.0-4.3 [facility] Comment on above: Performed By: #### L [id number] ####[employer] Supervisor: KIMBERLY VIRGEN ([phone])[facility])[address] [place] [address] Lymphocytes/100 WBC (Bld) 18.7 % Normal 15.0-45.0 [facility] Comment on above: Performed By: #### L [id number] ####[employer] Supervisor: KIMBERLY VIRGEN ([phone])[facility])[address] [place] [address] MCH (RBC) [Entitic mass] 23.7 pg Low 26.0-34.0 [facility] Comment on above: Performed By: #### L [id number] ####[employer] Supervisor: KIMBERLY VIRGEN ([phone])[facility])[address] [place] [address] MCHC 30.8 % Normal 30.5-36.0 [facility] Comment on above: Performed By: #### L [id number] ####[employer] Supervisor: KIMBERLY VIRGEN ([phone])[facility])[address] [place] [address] MCV (RBC) [Entitic vol] 77.1 fL Normal 77.0-99.0 [facility] Comment on above: Performed By: #### L [id number] ####[employer] Supervisor: KIMBERLY VIRGEN ([phone])[facility])[address] [place] [address] Monocytes (Bld) [#/Vol] 0.5 10*3/uL Normal 0.0-0.9 [facility] Comment on above: Performed By: #### L [id number] ####[employer] Supervisor: KIMBERLY VIRGEN ([phone])[facility])[address] [place] [address] Monocytes/100 WBC (Bld) 6.8 % Normal 5.0-13.0 [facility] Comment on above: Performed By: #### L [id number] ####Paper [employer] Supervisor: KIMBERLY VIRGEN ([phone])[facility] ([facility])[address] [place] [address] NEUTROPHILS ABSOLUTE 5.3 10*3/uL Normal 1.8-7.5 [facility] Comment on above: Performed By: #### L [id number] ####Paper [employer] Supervisor: KIMBERLY VIRGEN ([phone])[facility] ([facility])[address] [place] [address] Neutrophils/100 WBC (Bld) 72.7 % Normal 38.0-82.0 [facility] Comment on above: Performed By: #### L [id number] ####[employer] Supervisor: KIMBERLY VIRGEN ([phone])[facility] ([facility])[address] [place] [address] NRBC 0.0 /100 WBCs Normal 0.0-2.0 [facility] Comment on above: Performed By: #### L [id number] ####[employer] Supervisor: KIMBERLY VIRGEN ([phone])[facility] ([facility])[address] [place] [address] Platelet mean volume (Bld) [Entitic vol] 9.2 fL Normal 9.0-12.7 [facility] Comment on above: Performed By: #### L [id number] ####Paper [employer] Supervisor: KIMBERLY VIRGEN ([phone])[facility] ([facility])[address] [place] [address] [place] Platelets (Bld) [#/Vol] 353 10*3/uL Normal 140-440 [facility] Comment on above: Performed By: #### L [id number] ####[employer] Supervisor: KIMBERLY VIRGEN ([phone])[facility] ([facility])[address] [place] [address] RBC (Bld) [#/Vol] 4.76 10*6/uL Normal 3.80-5.20 [facility] Comment on above: Performed By: #### L [id number] ####[employer] Supervisor: KIMBERLY VIRGEN ([phone])[facility] ([facility])[address] [place] [address] WBC (Bld) [#/Vol] 7.3 10*3/uL Normal 3.6-10.7 [facility] Comment on above: Performed By: #### L [id number] ####Paper [employer] Supervisor: KIMBERLY VIRGEN ([phone])[facility] ([facility])[address] [place] [address] COMPLETE URINALYSISon 2024 BACTERIA (#/HPF) IN URINE Few Abnormal Negative [facility] Comment on above: Performed By: #### L [id number] ####[employer] Supervisor: KIMBERLY VIRGEN ([phone])[facility])[address] [place] [address] BILIRUBIN, TOTAL PRESENCE IN URINE Negative Normal Negative [facility] Comment on above: Performed By: #### L [id number] ####[employer] Supervisor: KIMBERLY VIRGEN ([phone])[facility] ([facility])[address] [place] [address] Clarity (U) Slightly Cloudy Abnormal Clear [facility] Comment on above: Performed By: #### L [id number] ####[employer] Supervisor: KIMBERLY VIRGEN ([phone])[facility] ([facility])[address] [place] [address] Color (U) Yellow Normal Lt. Yellow [facility] Comment on above: Performed By: #### L [id number] ####Paper [employer] Supervisor: KIMBERLY VIRGEN ([phone])[facility] ([facility])[address] [place] [address] GLUCOSE (MG/DL) IN URINE Normal Normal Nor mal (<70) [facility] Comment on above: Performed By: #### L [id number] ####Paper [employer] Supervisor: KIMBERLY VIRGEN ([phone])[facility])[address] [place] [address] HEMOGLOBIN PRESENCE IN URINE Negative Normal Negative [facility] Comment on above: Performed By: #### L [id number] ####Paper [employer] Supervisor: KIMBERLY [phone])[facility] ([facility])[address] [place] [address] Ketones Ql (U) 100 mg/dL Abnormal Negative [facility] Comment on above: Performed By: #### L [id number] ####Paper [employer] Supervisor: KIMBERLY VIRGEN ([phone])[facility] ([facility])[address] [place] [address] LEUKOCYTE ESTERASE PRESENCE IN URINE BY TEST STRIP Negative Normal Negative [facility] Comment on above: Performed By: #### L [id number] ####Paper [employer] Supervisor: KIMBERLY VIRGEN ([phone])[facility] ([facility])[address] [place] [address] MUCUS (#/LPF) IN URINE SEDIMENT Many Abnormal Negative [facility] Comment on above: Performed By: #### L [id number] ####Paper [employer] Supervisor: KIMBERLY VIRGEN ([phone])[facility] ([facility])[address] [place] [address] NITRITE PRESENCE IN URINE Negative Normal Negative [facility] Comment on above: Performed By: #### L [id number] ####Paper [employer] Supervisor: KIMBERLY VIRGEN ([phone])[facility])[address] [place] [address] pH (U) 6.5 [pH] Normal 5.0-8.0 [facility] Comment on above: Performed By: #### L [id number] ####Paper Products Supervisor: KIMBERLY VIRGEN ([phone])[facility])[address] [place] [address] Protein (U) [Mass/Vol] 30 mg/dL Abnormal Negative [facility] Comment on above: Performed By: #### L [id number] ####Paper [employer] Supervisor: KIMBERLY VIRGEN ([phone])[facility])[address] [place] [address] RBC (#/HPF) IN URINE SEDIMENT 6-10 Abnormal 0-2 [facility] Comment on above: Performed By: #### L [id number] ####Paper Products Supervisor: KIMBERLY VIRGEN ([phone])[facility] ([facility])[address] [place] [address] Specific gravity (U) [Rel density] 1.024 Normal 1.005-1.03 0 [facility] Comment on above: Performed By: #### L [id number] ####Paper [employer] Supervisor: KIMBERLY VIRGEN ([phone])[facility])[address] [place] [address] SQUAMOUS EPITHELIAL CELLS (#/HPF) IN URINE SEDIMENT 3-5 Normal 3-5 [facility] Comment on above: Performed By: #### L [id number] ####Paper [employer] Supervisor: KIMBERLY VIRGEN ([phone])[facility])[address] [place] [address] UROBILINOGEN (MG/DL) IN URINE 4 mg/dL Abnormal Normal (0-1) [facility] Comment on above: Performed By: #### L [id number] ####Paper Products Supervisor: KIMBERLY VIRGEN ([phone])[facility] ([facility])[address] [place] [address] WBC (LEUKOCYTE) (#/HPF) IN URINE SEDIMENT 6-10 Abnormal 0-5 [facility] Comment on above: Performed By: #### L [id number] ####Paper Products Supervisor: KIMBERLY VIRGEN ([phone])[facility])[address] [place] [address] COMPREHENSIVE METABOLIC PANE Gilberto 12-18-2024 Albumin [Mass/Vol] 4.4 g/dL Normal 3.5-5.0 [facility] Comment on above: Performed By: #### L AB17, LAB99 ####Paper [employer] Supervisor: KIMBERLY VIRGEN ([phone])[facility])[address] [place] [address] ALP [Catalytic activity/Vol] 49 U/L Normal 40-150 [facility] Comment on above: Performed By: #### L AB17, LAB99 ####Paper [employer] Supervisor: KIMBERLY VIRGEN ([phone])[facility])[address] ALT [Catalytic activity/Vol] 20 U/L Normal <30 [facility] Comment on above: Performed By: #### L AB17, LAB99 ####Paper [employer] Supervisor: KIMBERLY VIRGEN ([phone])[facility] ([facility])[address] [place] [address] Anion gap [Moles/Vol] 13 mmol/L Normal 3-13 [facility] Comment on above: Performed By: #### L AB17, LAB99 ####Paper [employer] Supervisor: KIMBERLY VIRGEN ([phone])[facility] ([facility])[address] [place] [address] AST [Catalytic activity/Vol] 28 U/L Normal <34 [facility] Comment on above: Performed By: #### L AB17, LAB99 ####Paper [employer] Supervisor: KIMBERLY VIRGEN ([phone])[facility] ([facility])[address] [place] [address] Bilirubin [Mass/Vol] 0.4 mg/dL Normal <1.2 [facility] Comment on above: Performed By: #### L AB17, LAB99 ####Paper [employer] Supervisor: KIMBERLY VIRGEN ([phone])[facility])[address] [place] [address] Calcium [Mass/Vol] 9.5 mg/dL Normal 8.4-10.2 [facility] Comment on above: Performed By: #### L AB17, LAB99 ####Paper [employer] Supervisor: KIMBERLY VIRGEN ([phone])[facility])[address] [place] [address] [place] Chloride [Moles/Vol] 99 mmol/L Normal 98-107 [facility] Comment on above: Performed By: #### L AB17, LAB99 ####Paper [employer] Supervisor: KIMBERLY VIRGEN ([phone])[facility])[address] [place] [address] [place] CO2 [Moles/Vol] 28 mmol/L Normal 22-29 [facility] Comment on above: Performed By: #### L AB17, LAB99 ####Paper [employer] Supervisor: KIMBERLY VIRGEN ([phone])[facility] ([facility])[address] [place] [address] Creatinine [Mass/Vol] 0.75 mg/dL Normal 0.57-1.11 [facility] Comment on above: Performed By: #### L AB17, LAB99 ####Paper [employer] Supervisor: KIMBERLY VIRGEN ([phone])[facility])[address] [place] [address] GLOMERULAR FILTRATION RATE ML/MIN/1.73 SQ M.PREDICTED >90.0 Normal >60.0 [facility] Comment on above: Result Comment: Calc ulation based on the Chronic Kidney Disease Epidemiology Collaboration (CKD-EPI) equation refit without adjustment for race Performed By: #### L 17, LAB99 ####Paper [employer] Supervisor: KIMBERLY VIRGEN ([phone])[facility] ([facility])[address] [place] [address] [place] Glucose [Mass/Vol] 97 mg/dL Normal 74-100 [facility] Comment on above: Performed By: #### L AB17, LAB99 ####[employer] Supervisor: KIMBERLY VIRGEN ([phone])[facility] ([facility])[address] [place] [address] Potassium [Moles/Vol] 3.2 mmol/L Low 3.5-5.1 [facility] Comment on above: Result Comment: [facility] potassium values may be up to 0.5 mmol/L lower than serum values. Performed By: #### L AB17, LAB99 ####Paper [employer] Supervisor: KIMBERLY VIRGEN ([phone])[facility] [place] [address] [place] Protein [Mass/Vol] 8.1 g/dL Normal 6.4-8.3 [facility] Comment on above: Performed By: #### L AB17, LAB99 ####[employer] Supervisor: KIMBERLY VIRGEN ([phone])[facility] ([facility])[address] [place] [address] [place] Sodium [Moles/Vol] 140 mmol/L Normal 136-145 [facility] Comment on above: Performed By: #### L AB17, LAB99 ####Paper [employer] Supervisor: KIMBERLY VIRGEN ([phone])[facility] ([facility])[address] [place] [address] Urea nitrogen [Mass/Vol] 5 mg/dL Low 8-21 [facility] Comment on above: Performed By: #### L AB17, LAB99 ####Paper [employer] Supervisor: KIMBERLY VIRGEN ([phone])[facility])[address] [place] [address] Comprehensive metabolic 1998 panelon 12-18-2024 Albumin [Mass/Vol] 4.4 g/dL 3.5 - 5.0 g/dL [facility] ALP [Catalytic activity/Vol] 49 U/L 40 - 150 U/L [facility] ALT [Catalytic activity/Vol] 20 U/L NINF - 30 U/L [facility] Anion gap [Moles/Vol] 13 mmol/L 3 - 13 mmol/L [facility] AST [Catalytic activity/Vol] 28 U/L NINF - 34 U/L [facility] Bilirubin [Mass/Vol] 0.4 mg/dL NINF - 1.2 mg/dL [facility] Calcium [Mass/Vol] 9.5 mg/dL 8.4 - 10. 2 mg/dL [facility] Chloride [Moles/Vol] 99 mmol/L 98 - 10 7 mmol/L [facility] CO2 [Moles/Vol] 28 mmol/L 22 - 29 mmol/L [facility] Creatinine [Mass/Vol] 0.75 mg/dL 0.57 - 1.11 mg/dL [facility] GFR/1.73 sq M.predicted (S/P/Bld) [Vol rate/Area] - PINF [facility] Comment on above: Calculation based on the Chronic Kidney Disease Epidemiology Collaboration (CKD-EPI) equation refit without adjustment for race Glucose [Mass/Vol] 97 mg/dL 74 - 100 mg/dL [facility] Interpretation and review of laboratory results Abnormal [facility] Potassium [Moles/Vol] 3.2 mmol/L Low 3.5 - 5.1 mmol/L [facility] Comment on above: Plasma potassium yuli ues may be up to 0.5 mmol/L lower than serum values. Protein [Mass/Vol] 8.1 g/dL 6.4 - 8.3 g/dL [facility] Sodium [Moles/Vol] 140 mmol/L 136 - 145 mmol/L [facility] Urea nitrogen [Mass/Vol] 5 mg/dL Low 8 - 21 mg/dL [facility] ED Nursing Noteon 12-18-2024 ED Nursing Note patient refused pota ssium drink. offered tablets, she said she can't do tablets either. usually has K infusions. Resident notified. Normal [facility] ED Provider Noteon ED Provider Note Normal [facility] LIPASEon 12-18-2024 Lipase [Catalytic activity/Vol] 14 U/L Normal <55 [facility] Comment on above: Performed By: #### L [id number], [id number] ####Paper Products Supervisor: KIMBERLY VIRGEN ([phone])[facility] ([id number] Laboratory - Chemistry and C hemistry - challengeon 12-18-2024 Lipase [Catalytic activity/Vol] 14 U/L NINF - 55 U/L [facility] Lipase [Catalytic activity/V ol]on 12-18-2024 Interpretation and review of laboratory results Normal [facility] No Panel Informationon 12-18 [facility] Urinalysis complete panel (U )Ordered By: Kate Mosqueda on 12-18-2024 Bacteria LM.HPF (Urine sed) [#/Area] Few Abnormal Negative /HPF [facility] Bilirubin Ql (U) Negative Negative mg/dL [facility] Clarity (U) Slightly Cloudy Abnormal Clear [facility] Color (U) Yellow Lt. Yellow [facility] Epithelial cells.squamous LM.HPF (Urine sed) [#/Area] 3-5 [facility] Glucose Ql (U) Normal Normal (<70) mg/dL [facility] Hemoglobin Ql (U) Negative Negative mg/dL [facility] Interpretation and review of laboratory results Abnormal [facility] Ketones (U) [Mass/Vol] 100 mg/dL Abnormal Negative [facility] Leukocyte esterase Test strip Ql (U) Negative Negative Nesha/uL [facility] Mucus LM.HPF (Urine sed) [#/Area] Many Abnormal Negative /LPF [facility] Nitrite Ql (U) Negative Negative [facility] pH (U) 6.5 [pH] 5.0 - 8.0 pH [facility] Protein (U) [Mass/Vol] 30 mg/dL Abnormal Negative [facility] RBC LM.HPF (Urine sed) [#/Area] 6-10 Abnormal [facility] Specific gravity (U) [Rel density] 1.024 1.005 - 1.030 [facility] Urobilinogen (U) [Mass/Vol] 4 mg/dL Abnormal Normal (0-1) [facility] WBC LM.HPF (Urine sed) [#/Area] 6-10 Abnormal [facility] Abdomen/Pelvis W IV Cont ONL Yon 12-14-2024 Abdomen/Pelvis W IV Cont ONLY [facility] Imaging Services [address] [place] [id number] Abdomen/Pelvis W IV Cont ONLY MR#: [id number] Acct: [id number] Name: ADDIS TORRES CHIKIS Rep #: [id number] : 2000 F 24 From: Jade Ozuna MD PCP: Dr. Robina Watson MD Status: REG ER Study: Abdomen/Pelvis W IV Cont ONLY Date of Exam: Exam# [id number] Ordering Dr: Xochilt Parker PROCEDURE: ABDOMEN/PELVIS W IV CONT ONLY 12/14/2024 REASON FOR EXAM: LLQ PAIN TECHNIQUE: Abdomen and pelvis CT with intravenous contrast. Coronal and Sagittal reformats were generated. PATIENT PREPARATION: Per protocol ORAL CONTRAST TYPE: None. CONTRAST: Isovue 370 VOLUME: 99 mL One or more dose reduction techniques were used (e.g., Automated exposure control, adjustment of the mA and/or kV according to patient size, use of iterative reconstruction technique. RADIATION DOSE SUMMARY: CTDlvol: 3.32+ 20.59 mGy DLP: 1062.13 mGycm COMPARISON: None. FINDINGS: Lung bases: Unremarkable. Liver: Surgical clip abuts the inferior RIGHT hepatic lobe. Spleen: Unremarkable. Gallbladder: Cholecystectomy. Pancreas: Unremarkable. Adrenals: Unremarkable. Kidneys: Unremarkable. Bowel: High-density material opacifies the ascending as well as the descending and rectosigmoid colon. Single surgical clip in the RIGHT paracolic gutter abutting the ascending colon.. Normal caliber appendix. Lymph nodes: Unremarkable. Vasculature: Unremarkable. Peritoneum: Unremarkable. Bladder: Borderline mild wall thickening versus underdistention. Reproductive Organs: Hysterectomy. Body Wall: Tiny fat containing umbilical hernia.. Bones: Mild lower thoracic levoscoliosis. CT/Abdomen/Pelvis W IV Cont ONLY IMPRESSION: 1. Borderline evidence of mild cystitis. Correlate with urinalysis. 2. Additional description as above. Reading Location: [id number] CC: Dr. Robina Watson MD; ISHMAEL [employer] Adjunct Professor: Signed Normal [facility] CBC W/Diff, Automatedon 04-0 Absolute Lymph 1.19 X10 3/uL Normal 0.83-4.51 [facility] Comment on above: Performed By: #### L 500.4050, L501.5200, L501.2450, L700.6800, L100.0100 ####[facility] [address] [place], [address] Absolute Neut 7.8 X10 3/uL High 2.0-7.7 [facility] Comment on above: Performed By: #### L 500.4050, L501.5200, L501.2450, L700.6800, L100.0100 ####[facility] [address] [place], [address] Basophils/100 WBC (Bld) 0.4 % Normal 0-1 [facility] Comment on above: Performed By: #### L 500.4050, L501.5200, L501.2450, L700.6800, L100.0100 ####[facility] [address] [place], [address] Eosinophils/100 WBC (Bld) 0.7 % Normal 0-5 [facility] Comment on above: Performed By: #### L 500.4050, L501.5200, L501.2450, L700.6800, L100.0100 ####[facility] [address] [place], [address] Erythrocyte distribution width (RBC) [Ratio] 16.4 % High 11.6-14.6 [facility] Comment on above: Performed By: #### L 500.4050, L501.5200, L501.2450, L700.6800, L100.0100 ####[facility] [address] [place], [address] Hematocrit (Bld) [Volume fraction] 38.1 % Normal 37-47 [facility] Comment on above: Performed By: #### L 500.4050, L501.5200, L501.2450, L700.6800, L100.0100 ####[facility] [address] [place], [address] Hemoglobin (Bld) [Mass/Vol] 12.0 g/dL Normal 12.0-15.0 [facility] Comment on above: Performed By: #### L 500.4050, L501.5200, L501.2450, L700.6800, L100.0100 ####[facility] [address] [place], [address] IG% 0.200 Normal 0.0-0.9 [facility] Comment on above: Result Comment: IG% - Immature Granulocytes (promyelocytes, myelocytes and metamyelocytes) > 1% indicates that a LEFT SHIFT is Present. Performed By: #### L 500.4050, L501.5200, L501.2450, L700.6800, L100.0100 ####[facility] [address] [place], [address] Lymphocytes/100 WBC (Bld) 12.4 % Low 19-41 [facility] Comment on above: Performed By: #### L 500.4050, L501.5200, L501.2450, L700.6800, L100.0100 ####[facility] [address] [place], [address] MCH (RBC) [Entitic mass] 24.3 pg Low 27.0-32.0 [facility] Comment on above: Performed By: #### L 500.4050, L501.5200, L501.2450, L700.6800, L100.0100 ####[facility] [address] [place], [address] MCHC (RBC) [Mass/Vol] 31.5 g/dL Low 32-36 [facility] Comment on above: Performed By: #### L 500.4050, L501.5200, L501.2450, L700.6800, L100.0100 ####[facility] [address] [place], [address] MCV (RBC) [Entitic vol] 77.1 fL Low 81-99 [facility] Comment on above: Performed By: #### L 500.4050, L501.5200, L501.2450, L700.6800, L100.0100 ####[facility] [address] [place], [address] Monocytes/100 WBC (Bld) 5.7 % Normal 0-10 [facility] Comment on above: Performed By: #### L 500.4050, L501.5200, L501.2450, L700.6800, L100.0100 ####[facility] [address] [place], [address] Neutrophils/100 WBC (Bld) 80.6 % High 47-70 [facility] Comment on above: Performed By: #### L 500.4050, L501.5200, L501.2450, L700.6800, L100.0100 ####[facility] [address] [place], [address] Nucleated RBC (Bld) [#/Vol] 0 10*3/uL Normal 0-5 [facility] Comment on above: Performed By: #### L 500.4050, L501.5200, L501.2450, L700.6800, L100.0100 ####[facility] [address] [place], [address] Platelet mean volume (Bld) [Entitic vol] 9.2 fL Normal 6.2-12.0 [facility] Comment on above: Performed By: #### L 500.4050, L501.5200, L501.2450, L700.6800, L100.0100 ####[facility] [address] [place], [address] Platelets (Bld) [#/Vol] 356 10*3/uL Normal 150-450 [facility] Comment on above: Performed By: #### L 500.4050, L501.5200, L501.2450, L700.6800, L100.0100 ####[facility] [address] [place], [address] RBC (Bld) [#/Vol] 4.94 10*6/uL Normal 4.2-5.4 [facility] Comment on above: Performed By: #### L 500.4050, L501.5200, L501.2450, L700.6800, L100.0100 ####[facility] [address] [place], [address] RDW SD 45.1 fl High 35.1-43.9 [facility] Comment on above: Performed By: #### L 500.4050, L501.5200, L501.2450, L700.6800, L100.0100 ####[facility] [address] [place], [address] WBC (Bld) [#/Vol] 9.6 10*3/uL Normal 4.4-11.0 [facility] Comment on above: Performed By: #### L 500.4050, L501.5200, L501.2450, L700.6800, L100.0100 ####[facility] [address] [place], [place], [address] Comprehensive Metabolic Prof ilon 12-14-2024 Potassium [Moles/Vol] 2.7 mmol/L Invalid Interpretation Code 3.3-5.1 [facility] Comment on above: Result Comment: Crit ical Result(s) Called at 12/14/2024-:36 by Nabeel Scanlon??Results read back by same. Critical Result(s) Called [facility] at: 1552 by: SHAISTA??Results read back by same. AMENDED REPORT 12/14/24 9313 K previously reported as: 2.7 *L mmol/L Critical Result(s) Called at 12/14/2024-12:36 by Nabeel Scanlon??Results read back by same. Performed By: #### L 500.4050, L501.5200, L501.2450, L700.6800, L100.0100 ####[facility] [address] [place], [address] Emergency Department Summary on 12-14-2024 Emergency Department Summary [facility] Medical Records Department [address] [place] [address] Emergency Department Summary 12/14/24 MR#: [id number] Acct: [id number] Name: ADDIS TORRES Rep #: [id number] : 2000 24 From: Xochilt QUIÑONES PCP: Dr. Robina Watson MD Status:DEP ER Location: ED HPI HPI - GI History of Present Illness Chief Complaint: Abd Pain Narrative Narrative: Patient presenting today with left lower quadrant abdominal pain she has had constantly over the past 2 weeks. She has a history of chronic abdominal pain that is intermittent. She has been work ed up by GI and has had several ER visits and hospital stays with extensive workups performed. She did previously follow with Dr. Combs for this. She has a history of gastroparesis, HTN, depression, PCOS, and endometrial cancer s/p partial hysterectomy. She reports occasional marijuana use. She denies fevers, chills, vomiting, diarrhea, urinary symptoms, and stool changes. She also has a history of a cholecystectomy. [facility] Medical History Cholecystectomy planned Intractable nausea and vomiting Gastroparesis Cyclic vomiting syndrome History of alcohol abuse Ureteral stricture, left Retained ureteral stent Hypertension Depression Ureterolithiasis Ureter injury Non-smoker Endometrial cancer PCOS (polycystic ovarian syndrome) Home Medications ???Medication ???Instructions ???Recorded ???Last Taken ???Type dicyclomine 10 mg capsule 10 mg PO TID #90 caps 11/30/24 Rx gabapentin 600 mg tablet 600 mg PO TID #90 tabs 11/30/24 Rx methocarbamol 500 mg tablet 500 mg PO TID #90 tabs 11/30/24 Rx mirtazapine 15 mg disintegrating 15 mg PO QHS #30 tabs 11/30/24 Rx tablet ondansetron 4 mg disintegrating 4 mg PO Q6H PRN nausea and 5 11/30/24 Rx tablet vomiting #90 tabs pantoprazole 40 mg tablet,delayed 40 mg PO BID #60 TABLETS 11/30/24 11/30/24 Rx release trazodone 50 mg tablet 50 mg PO QHS PRN sleep #30 tabs 11/30/24 Rx neomycin-bacitracn Zn-polymyx 3.5 1 applic topical DAILY infected 0 12/14/24 12/13/24 History mg-400 unit-5,000 unit/gram top hair oint (Neosporin (irx-axq-kzibc)) Allergy/AdvReac Type Severity Reaction Status Date / Time ceftriaxone (From Rocephin) Allergy Hives Verified 12/14/24 10:28 promethazine (From Phenergan) Allergy Vomiting Verified 12/14/24 10:28 Ringer's solution,lactated Allergy Hives Verified 12/14/24 10:28 Family History Father No problems noted. Mother Anxiety and depression GERD (gastroesophageal reflux disease) Surgical History History of renal stent History of hysterectomy for cancer Social History household members: family Smoking Status: Never smoker alcohol intake: former substance use type: marijuana and other details: No marijuana use in the last month ROS ROS ED Constitutional Constitutional ED: Denies chills or fever(s) Cardiovascular Cardiovascular: Denies chest pain Respiratory/Chest Respiratory/Chest: Denies dyspnea Gastrointestinal Gastrointestinal: Reports abdominal pain and nausea; Denies constipation, diarrhea, melena or vomiting Genitourinary Genitourinary ED: Denies dysuria, hematuria or urinary frequency Musculoskeletal Musculoskeletal: Denies arthralgias or myalgias Integumentary Denies rash Neurologic Neurologic: Denies weakness EXAM Physical Exam Const Vital Signs: 12/14/24 10:28 12/14/24 10:28 12/14/24 12:28 Temperature 98 F Temperature Source Temporal Pulse Rate 123 H 138 H 92 Respiratory Rate 22 H 22 H Blood Pressure 154/109 H Blood Pressure Mean 124 Pulse Ox 98 96 Oxygen Delivery Method Room Air Room Air 12/14/24 14:00 12/14/24 16:00 12/14/24 17:02 Temperature 98.4 F Temperature Source Pulse Rate 104 H 87 79 Respiratory Rate 16 16 16 Blood Pressure 137/99 H 137/93 H 135/78 H Blood Pressure Mean 111 107 97 Pulse Ox 97 100 98 Oxygen Delivery Method Room Air Room Air Positive well nourished, well developed and no apparent distress General Appearance ED: well developed HEENT Reports normocephalic and head/scalp atraumatic Mouth ED: Yes moist mucous membranes normal Eyes PERRL and EOMs intact bilaterally Neck full ROM and supple Chest Wall inspection of chest normal Resp normal respiratory effort and clear to auscultation bilaterally Cardio regular rate and regular rhythm GI soft to palpation, non-distended and no masses GI Narrative: Left lower quadrant tende (more content not included)... Normal [facility] Lipaseon 04-09-2025 Lipase [Catalytic activity/Vol] 25 U/L Normal 13-75 [facility] Comment on above: Result Comment: Isak medina note: LIPASE revised reference range effective 22. New Lipase methodology. Expected to produce lower values than the previous assay method. NEW Reference Range: 13 - 75 U/L Performed By: #### L 500.4050, L501.5200, L501.2450, L700.6800, L100.0100 ####[facility] [address] [place], [address] Magnesiumon 12-14-2024 Magnesium [Mass/Vol] 2.1 mg/dL Normal 1.5-2.2 [facility] Comment on above: Performed By: #### L 500.4050, L501.5200, L501.2450, L700.6800, L100.0100 ####[facility] [address] [place], [address] ,Serum,hCG Quali.on 12-14-2024 HCG, SERUM QUAL Negative Normal [facility] Comment on above: Performed By: #### L 500.4050, L501.5200, L501.2450, L700.6800, L100.0100 ####[facility] [address] [place], [address] Urinalysis, Completeon 12-14 EPI,SQUAMOUS 0-5 SEEN Normal 5-10 [facility] Comment on above: Order Comment: CLEAN CATCH Performed By: #### L 400.0001 ####[facility] [address] [place], [address] RBC 0-5 SEEN Normal 0-5 [facility] Comment on above: Order Comment: CLEAN CATCH Performed By: #### L 400.0001 ####[facility] [address] [place], [address] WBC 0-5 SEEN Normal 0-5 [facility] Comment on above: Order Comment: CLEAN CATCH Performed By: #### L 400.0001 ####[facility] [address] [place], [address] BACTERIA 0 SEEN Normal None Seen [facility] Comment on above: Order Comment: CLEAN CATCH Performed By: #### L 400.0001 ####[facility] [address] [place], [address] Mucus Ql (Urine sed) 0 SEEN Normal [facility] Comment on above: Order Comment: CLEAN CATCH Performed By: #### L 400.0001 ####[facility] [address] [place], [address] CNDSon 12-10-2024 CNDS Normal [facility] POTASSIUMon 12-10-2024 Potassium [Moles/Vol] 3.4 mmol/L Low 3.7-5.1 [facility] Comment on above: Order Comment: Speci men Type: BLOOD SPECIMENOrdering Facility: [facility] Address: [address] [place] [address] Performed By: #### K 1 ####[facility] LABCLIA [id number] [place] [address] [place] CASE MANAGEMon 12-09-2024 CASE MANAGEM Normal [facility] CONSULT PROGon 12-09-2024 CONSULT PROG Normal [facility] CONSULT PROG Normal [facility] Magnesium SerPl-mCncon 12-09 Magnesium [Mass/Vol] 2.0 mg/dL Normal 1.7-2.3 [facility] Comment on above: Order Comment: Speci men Type: BLOOD SPECIMENOrdering Facility: [facility] Address: [address] [place] [address] Performed By: #### 1 9123-9, 58147-6 ####[facility] LABCLIA [id number] [place] [id number] [place] Renal function 2000 panelon 12-09-2024 Albumin [Mass/Vol] 4.4 g/dL Normal 3.9-4.9 [facility] Comment on above: Order Comment: Speci men Type: BLOOD SPECIMENOrdering Facility: [facility] Address: [address] [place] [address] Performed By: #### 1 9123-9, 54473-4 ####[facility] LABCLIA [id number] [facility] [place] [address] [place] Anion gap [Moles/Vol] 19 mmol/L High 8-15 [facility] Comment on above: Order Comment: Speci men Type: BLOOD SPECIMENOrdering Facility: [facility] Address: [address] [place] [address] Performed By: #### 1 9123-9, 09585-1 ####[facility] LABCLIA [id number] [place] [id number] [place] Calcium [Mass/Vol] 9.5 mg/dL Normal 8.5-10.2 [facility] Comment on above: Order Comment: Speci men Type: BLOOD SPECIMENOrdering Facility: [facility] Address: [address] [place] [address] Performed By: #### 1 9123-9, 19789-2 ####[facility] LABCLIA [id number] [facility] [place] [id number] [place] Chloride [Moles/Vol] 97 mmol/L Low 98-107 [facility] Comment on above: Order Comment: Speci men Type: BLOOD SPECIMENOrdering Facility: [facility] Address: [address] [place] [address] Performed By: #### 1 9123-9, 26272-6 ####[facility] LABCLIA [id number] [facility] [place] [id number] [place] CO2 [Moles/Vol] 19 mmol/L Low 22-30 [facility] Comment on above: Order Comment: Speci men Type: BLOOD SPECIMENOrdering Facility: [facility] Address: [address] [place] [address] Performed By: #### 1 9123-9, 86230-0 ####[facility] [id number] [place] [id number] [place] Creatinine [Mass/Vol] 0.76 mg/dL Normal 0.58-0.96 [facility] Comment on above: Order Comment: Alex men Type: BLOOD SPECIMENOrdering Facility: [facility] Address: [address] [place] [address] Performed By: #### 1 9123-9, 01719-4 ####[facility] [id number] [place] [address] [place] Creatinine and Glomerular filtration rate.predicted panel (S/P/Bld) 112 mL/min/1.73m??? Normal >=60 [facility] Comment on above: Order Comment: Alex mcgovern Type: BLOOD SPECIMENOrdering Facility: [facility] Address: [address] [place] [address] Result Comment: Cinthya mated Glomerular Filtration Rate (eGFR) is calculated using the 2020 CKD-EPI creatinine equation. This equation utilizes serum creatinine, sex, and age as parameters. The creatinine assay has traceable calibration to isotope dilution-mass spectrometry. Refer to KDIGO guidelines for clinical interpretation. In patients with unstable renal function, e.g. those with acute kidney injury, the eGFR may not accurately reflect actual GFR. Performed By: #### 1 9123-9, 93931-3 ####[facility] [id number] [place] [id number] [place] Glucose [Mass/Vol] 60 mg/dL Low 74-99 [facility] Comment on above: Order Comment: Sini men Type: BLOOD SPECIMENOrdering Facility: [facility] Address: [address] [place] [address] Result Comment: The [place] Diabetes Association (ADA) provides guidance for cutoff values for fasting glucose and random glucose. The ADA defines fasting as no caloric intake for at least 8 hours. Fasting plasma glucose results between 100 to 125 mg/dL indicate increased risk for diabetes (prediabetes).Fasting plasma glucose results greater than or equal to 126 mg/dL meet the criteria for diagnosis of diabetes. In the absence of unequivocal hyperglycemia, results should be confirmed by repeat testing. In a patient with classic symptoms of hyperglycemia or hyperglycemic crisis, random plasma glucose results greater than or equal to 200 mg/dL meet the criteria for diagnosis of diabetes.Reference: Standards of Medical Care in Diabetes 2016, [place] [employer] Association. Diabetes Care. 2016.39(Suppl 1). Performed By: #### 1 9123-9, 73480-1 ####[facility] LABCLIA [id number] [place] [address] [place] Phosphate [Mass/Vol] 3.9 mg/dL Normal 2.7-4.8 [facility] Comment on above: Order Comment: Speci men Type: BLOOD SPECIMENOrdering Facility: [facility] Address: [address] [place] [address] Performed By: #### 1 [address], ####[facility] LABCLIA [id number] [place] [address] [place] Potassium [Moles/Vol] 2.8 mmol/L Low 3.7-5.1 [facility] Comment on above: Order Comment: Speci men Type: BLOOD SPECIMENOrdering Facility: [facility] Address: [address] [place] [address] Performed By: #### 1 91239, ####[facility] LABCLIA [id number] [facility] [address] [place] Sodium [Moles/Vol] 135 mmol/L Low 136-144 [facility] Comment on above: Order Comment: Speci men Type: BLOOD SPECIMENOrdering Facility: [facility] Address: [address] [place] [address] Performed By: #### 1 9123-9, 58886-0 ####[facility] LABCLIA [id number] [address] [address] [place] Urea nitrogen [Mass/Vol] 12 mg/dL Normal 7-21 [facility] Comment on above: Order Comment: Speci men Type: BLOOD SPECIMENOrdering Facility: [facility] Address: [address] [place] [address] Performed By: #### 1 9123-9, 37474-9 ####[facility] LABCLIA [id number] [place] [id number] [place] CONSULT PROGon 12-08-2024 CONSULT PROG Normal [facility] Magnesium SerPl-mCncon 12-08 Magnesium [Mass/Vol] 2.2 mg/dL Normal 1.7-2.3 [facility] Comment on above: Order Comment: Speci men Type: BLOOD SPECIMENOrdering Facility: [facility] Address: [address] [place] [address] Performed By: #### 2 4362-6, ####[facility] LABCLIA [id number] [place] [id number] [place] Renal function 2000 panelon 12-08-2024 Albumin [Mass/Vol] 4.2 g/dL Normal 3.9-4.9 [facility] Comment on above: Order Comment: Speci men Type: BLOOD SPECIMENOrdering Facility: [facility] Address: [address] [place] [address] Performed By: #### 2 4362-6, ####[facility] LABCLIA [id number] [place] [id number] [place] Anion gap [Moles/Vol] 21 mmol/L High 8-15 [facility] Comment on above: Order Comment: Speci men Type: BLOOD SPECIMENOrdering Facility: [facility] Address: [address] [place] [address] Performed By: #### 2 4362-6, ####[facility] LABCLIA [id number] [facility] [address] [place] [address] [place] Calcium [Mass/Vol] 9.6 mg/dL Normal 8.5-10.2 [facility] Comment on above: Order Comment: Speci men Type: BLOOD SPECIMENOrdering Facility: [facility] Address: [address] [place] [address] Performed By: #### 2 4362-6, ####[facility] LABCLIA [id number] [facility] [address] [place] [address] [place] Chloride [Moles/Vol] 98 mmol/L Normal 98-107 [facility] Comment on above: Order Comment: Speci men Type: BLOOD SPECIMENOrdering Facility: [facility] Address: [address] [place] [address] Performed By: #### 2 4362-6, ####[facility] LABCLIA [id number] [address], [facility] [place] CO2 [Moles/Vol] 15 mmol/L Low 22-30 [facility] Comment on above: Order Comment: Speci men Type: BLOOD SPECIMENOrdering Facility: [facility] Address: [address] [place] [address] Performed By: #### 2 4362-6, ####[facility] LABCL[facility] [id number] [place] [id number] [place] Creatinine [Mass/Vol] 0.64 mg/dL Normal 0.58-0.96 [facility] Comment on above: Order Comment: Speci men Type: BLOOD SPECIMENOrdering Facility: [facility] Address: [address] [place] [address] Performed By: #### 2 4362-6, ####[facility] [id number] [address] [address] [place] Creatinine and Glomerular filtration rate.predicted panel (S/P/Bld) 127 mL/min/1.73m??? Normal >=60 [facility] Comment on above: Order Comment: Alex mcgovern Type: BLOOD SPECIMENOrdering Facility: [facility] Address: [address] [place] [address] Result Comment: Cinthya mated Glomerular Filtration Rate (eGFR) is calculated using the 2020 CKD-EPI creatinine equation. This equation utilizes serum creatinine, sex, and age as parameters. The creatinine assay has traceable calibration to isotope dilution-mass spectrometry. Refer to KDIGO guidelines for clinical interpretation. In patients with unstable renal function, e.g. those with acute kidney injury, the eGFR may not accurately reflect actual GFR. Performed By: #### 2 4362-6, 44129-9 ####[facility] LABIA [id number] [place] [address] [place] Glucose [Mass/Vol] 75 mg/dL Normal 74-99 [facility] Comment on above: Order Comment: Alex mcgovern Type: BLOOD SPECIMENOrdering Facility: [facility] Address: [address] [place] [address] Result Comment: The [place] Diabetes [employer] (ADA) provides guidance for cutoff values for fasting glucose and random glucose. The ADA defines fasting as no caloric intake for at least 8 hours. Fasting plasma glucose results between 100 to 125 mg/dL indicate increased risk for diabetes (prediabetes).Fasting plasma glucose results greater than or equal to 126 mg/dL meet the criteria for diagnosis of diabetes. In the absence of unequivocal hyperglycemia, results should be confirmed by repeat testing. In a patient with classic symptoms of hyperglycemia or hyperglycemic crisis, random plasma glucose results greater than or equal to 200 mg/dL meet the criteria for diagnosis of diabetes.Reference: Standards of Medical Care in Diabetes 2016, [place] [employer]. Diabetes Care. 2016.39(Suppl 1). Performed By: #### 2 4362-6, 27509-3 ####[facility] LABIA [id number] [address] [address] [place] Phosphate [Mass/Vol] 4.0 mg/dL Normal 2.7-4.8 [facility] Comment on above: Order Comment: Speci men Type: BLOOD SPECIMENOrdering Facility: [facility] Address: [address] [place] [address] Performed By: #### 2 4362-6, ####[facility] [id number] [address] [address] [place] Potassium [Moles/Vol] 4.0 mmol/L Normal 3.7-5.1 [facility] Comment on above: Order Comment: Speci men Type: BLOOD SPECIMENOrdering Facility: [facility] Address: [address] [place], [place] [address] Performed By: #### 2 4362-6, ####[facility]CL[facility] [id number] [place] [id number] [place] Sodium [Moles/Vol] 134 mmol/L Low 136-144 [facility] Comment on above: Order Comment: Speci men Type: BLOOD SPECIMENOrdering Facility: [facility] Address: [address] [place], [place] [address] Performed By: #### 2 4362-6, ####[facility] [id number] [place] [id number] [place] Urea nitrogen [Mass/Vol] 9 mg/dL Normal 7-21 [facility] Comment on above: Order Comment: Speci men Type: BLOOD SPECIMENOrdering Facility: [facility] Address: [address] [place], [place] [address] Performed By: #### 2 4362-6, ####[facility] LABIA [id number] [address] [address] [place] CASE MANAGEMon 12-07-2024 CASE MANAGEM Normal [facility] CONSULTon 12-07-2024 CONSULT Normal [facility] CONSULT Normal [facility] CONSULT Normal [facility] Renal function 2000 panelon 12-07-2024 Albumin [Mass/Vol] 4.5 g/dL Normal 3.9-4.9 [facility] Comment on above: Order Comment: Speci men Type: BLOOD SPECIMENOrdering Facility: [facility] Address: [address] [place], [place] [address] Performed By: #### 2 4362-6 ####[facility] [id number] [address] [address] [place] Anion gap [Moles/Vol] 18 mmol/L High 8-15 [facility] Comment on above: Order Comment: Speci men Type: BLOOD SPECIMENOrdering Facility: [facility] Address: [address] [place] [address] Performed By: #### 2 4362-6 ####[facility]CL[facility] [id number] [place] [id number] [place] Calcium [Mass/Vol] 9.1 mg/dL Normal 8.5-10.2 [facility] Comment on above: Order Comment: Speci men Type: BLOOD SPECIMENOrdering Facility: [facility] Address: [address] [place] [address] Performed By: #### 2 4362-6 ####[facility] [id number] [place] [id number] [place] Chloride [Moles/Vol] 99 mmol/L Normal 98-107 [facility] Comment on above: Order Comment: Speci men Type: BLOOD SPECIMENOrdering Facility: [facility] Address: [address] [place] [address] Performed By: #### 2 4362-6 ####[facility] [id number] [place] [id number] [place] CO2 [Moles/Vol] 19 mmol/L Low 22-30 [facility] Comment on above: Order Comment: Speci men Type: BLOOD SPECIMENOrdering Facility: [facility] Address: [address] [place], [place] [address] Performed By: #### 2 4362-6 ####[facility] LABIA [id number] [address] [address] [place] Creatinine [Mass/Vol] 0.61 mg/dL Normal 0.58-0.96 [facility] Comment on above: Order Comment: Alex mcgovern Type: BLOOD SPECIMENOrdering Facility: [facility] Address: [address] [place] [address] Performed By: #### 2 4362-6 ####[facility] LABIA [id number] [address] [address] [facility] Creatinine and Glomerular filtration rate.predicted panel (S/P/Bld) 128 mL/min/1.73m??? Normal >=60 [facility] Comment on above: Order Comment: Alex mcgovern Type: BLOOD SPECIMENOrdering Facility: [facility] Address: [address] [place] [address] Result Comment: Cinthya mated Glomerular Filtration Rate (eGFR) is calculated using the 2020 CKD-EPI creatinine equation. This equation utilizes serum creatinine, sex, and age as parameters. The creatinine assay has traceable calibration to isotope dilution-mass spectrometry. Refer to KDIGO guidelines for clinical interpretation. In patients with unstable renal function, e.g. those with acute kidney injury, the eGFR may not accurately reflect actual GFR. Performed By: #### 2 4362-6 ####[facility] LABIA [id number] [address] [address] [place] Glucose [Mass/Vol] 73 mg/dL Low 74-99 [facility] Comment on above: Order Comment: Alex mcgovern Type: BLOOD SPECIMENOrdering Facility: [facility] Address: [address] [place] [address] Result Comment: The [place] Diabetes Association (ADA) provides guidance for cutoff values for fasting glucose and random glucose. The ADA defines fasting as no caloric intake for at least 8 hours. Fasting plasma glucose results between 100 to 125 mg/dL indicate increased risk for diabetes (prediabetes).Fasting plasma glucose results greater than or equal to 126 mg/dL meet the criteria for diagnosis of diabetes. In the absence of unequivocal hyperglycemia, results should be confirmed by repeat testing. In a patient with classic symptoms of hyperglycemia or hyperglycemic crisis, random plasma glucose results greater than or equal to 200 mg/dL meet the criteria for diagnosis of diabetes.Reference: Standards of Medical Care in Diabetes 2016, [place] [employer]. Diabetes Care. 2016.39(Suppl 1). Performed By: #### 2 4362-6 ####[facility] LABIA [id number] [address] [address] [place] Phosphate [Mass/Vol] 3.2 mg/dL Normal 2.7-4.8 [facility] Comment on above: Order Comment: Speci men Type: BLOOD SPECIMENOrdering Facility: [facility] Address: [address] [place] [address] Performed By: #### 2 4362-6 ####[facility] LABIA [id number] [place] [id number] [place] Potassium [Moles/Vol] 2.9 mmol/L Low 3.7-5.1 [facility] Comment on above: Order Comment: Speci men Type: BLOOD SPECIMENOrdering Facility: [facility] Address: [address] [place] [address] Performed By: #### 2 4362-6 ####[facility] LABIA [id number] [address] [address] [place] Sodium [Moles/Vol] 136 mmol/L Normal 136-144 [facility] Comment on above: Order Comment: Speci men Type: BLOOD SPECIMENOrdering Facility: [facility] Address: [address] [place], [place] [address] Performed By: #### 2 4362-6 ####[facility] LABIA [id number] [address] [address] [place] Urea nitrogen [Mass/Vol] 8 mg/dL Normal 7-21 [facility] Comment on above: Order Comment: Speci men Type: BLOOD SPECIMENOrdering Facility: [facility] Address: [address] [place] [address] Performed By: #### 2 4362-6 ####[facility] LABIA [id number] [place] [address] [place] CBC panel Auto (Bld)on 12-06 Erythrocyte distribution width (RBC) [Ratio] 15.6 % High 11.5-15.0 [facility] Comment on above: Order Comment: Speci men Type: BLOOD SPECIMENOrdering Facility: [facility] Address: [address] [place] [address] Performed By: #### 5 8410-2 ####[facility]CLIA [id number] [place] [address] [place] Hematocrit (Bld) [Volume fraction] 31.7 % Low 36.0-46.0 [facility] Comment on above: Order Comment: Speci men Type: BLOOD SPECIMENOrdering Facility: [facility] Address: [address] [place] [address] Performed By: #### 5 8410-2 ####[facility] LABIA [id number] [place] [address] [place] Hemoglobin (Bld) [Mass/Vol] 9.6 g/dL Low 11.5-15.5 [facility] Comment on above: Order Comment: Speci men Type: BLOOD SPECIMENOrdering Facility: [facility] Address: [address] [place] [address] Performed By: #### 5 8410-2 ####[facility]CL[facility] [id number] [place] [id number] [place] MCH (RBC) [Entitic mass] 23.8 pg Low 26.0-34.0 [facility] Comment on above: Order Comment: Speci men Type: BLOOD SPECIMENOrdering Facility: [facility] Address: [address] [place] [address] Performed By: #### 5 8410-2 ####[facility]CL[facility] [id number] [place] [address] [place] MCHC (RBC) [Mass/Vol] 30.3 g/dL Low 30.5-36.0 [facility] Comment on above: Order Comment: Speci men Type: BLOOD SPECIMENOrdering Facility: [facility] Address: [address] [place] [address] Performed By: #### 5 8410-2 ####[facility] LABIA [id number] [place] [address] [place] MCV (RBC) [Entitic vol] 78.5 fL Low 80.0-100.0 [facility] Comment on above: Order Comment: Speci men Type: BLOOD SPECIMENOrdering Facility: [facility] Address: [address] [place] [address] Performed By: #### 5 8410-2 ####[facility] LABIA [id number] [place] [address] [place] Nucleated RBC (Bld) [#/Vol] 10*3/uL Normal <0.01 [facility] Comment on above: Order Comment: Speci men Type: BLOOD SPECIMENOrdering Facility: [facility] Address: [address] [place] [address] Performed By: #### 5 8410-2 ####[facility]IA [id number] [place] [address] [place] Platelet mean volume (Bld) [Entitic vol] 8.9 fL Low 9.0-12.7 [facility] Comment on above: Order Comment: Speci men Type: BLOOD SPECIMENOrdering Facility: [facility] Address: [address] [place] [address] Performed By: #### 5 8410-2 ####[facility] LABIA [id number] [place] [address] [place] Platelets (Bld) [#/Vol] 414 10*3/uL High 150-400 [facility] Comment on above: Order Comment: Speci men Type: BLOOD SPECIMENOrdering Facility: [facility] Address: [address] [place] [address] Performed By: #### 5 8410-2 ####[facility]CL[facility] [id number] [address] [address] [place] RBC (Bld) [#/Vol] 4.04 10*6/uL Normal 3.90-5.20 [facility] Comment on above: Order Comment: Speci men Type: BLOOD SPECIMENOrdering Facility: [facility] Address: [address] [place] [address] Performed By: #### 5 8410-2 ####[facility]CL[facility] [id number] [place] [address] [place] WBC (Bld) [#/Vol] 11.93 10*3/uL High 3.70-11.00 [facility] Comment on above: Order Comment: Speci men Type: BLOOD SPECIMENOrdering Facility: [facility] Address: [address] [place] [address] Performed By: #### 5 8410-2 ####[facility] LABCLIA [id number] [place] [id number] [place] Magnesium SerPl-mCncon 12-06 Magnesium [Mass/Vol] 2.0 mg/dL Normal 1.7-2.3 [facility] Comment on above: Order Comment: Speci men Type: BLOOD SPECIMENOrdering Facility: [facility] Address: [address] [place] [address] Performed By: #### 2 4362-6, 08798-3 ####[facility]CL[facility] [id number] [address] [address] [place] NUTRITIONon 12-06-2024 NUTRITION Normal [facility] Renal function 2000 panelon 12-06-2024 Albumin [Mass/Vol] 4.7 g/dL Normal 3.9-4.9 [facility] Comment on above: Order Comment: Speci men Type: BLOOD SPECIMENOrdering Facility: [facility] Address: [address] [place] [address] Performed By: #### 2 4362-6, ####[facility] LABCLIA [id number] [facility] [address] [address] [place] Anion gap [Moles/Vol] 17 mmol/L High 8-15 [facility] Comment on above: Order Comment: Speci men Type: BLOOD SPECIMENOrdering Facility: [facility] Address: [address] [place] [address] Performed By: #### 2 4362-6, ####[facility]CL[facility] [id number] [place] [id number] [place] Calcium [Mass/Vol] 9.3 mg/dL Normal 8.5-10.2 [facility] Comment on above: Order Comment: Speci men Type: BLOOD SPECIMENOrdering Facility: [facility] Address: [address] [place] [address] Performed By: #### 2 4362-6, ####[facility]CL[facility] [id number] [facility] [address] [address] [place] Chloride [Moles/Vol] 98 mmol/L Normal 98-107 [facility] Comment on above: Order Comment: Speci men Type: BLOOD SPECIMENOrdering Facility: [facility] Address: [address] [place] [address] Performed By: #### 2 4362-6, ####[facility]CL[facility] [id number] [facility] [address] [address] [place] CO2 [Moles/Vol] 21 mmol/L Low 22-30 [facility] Comment on above: Order Comment: Speci men Type: BLOOD SPECIMENOrdering Facility: [facility] Address: [address] [place] [address] Performed By: #### 2 4362-6, ####[facility] [id number] [address] [address] [place] Creatinine [Mass/Vol] 0.61 mg/dL Normal 0.58-0.96 [facility] Comment on above: Order Comment: Speci men Type: BLOOD SPECIMENOrdering Facility: [facility] Address: [address] [place] [address] Performed By: #### 2 4362-6, ####[facility] [id number] [place] [address] [place] Creatinine and Glomerular filtration rate.predicted panel (S/P/Bld) 128 mL/min/1.73m??? Normal >=60 [facility] Comment on above: Order Comment: Speci men Type: BLOOD SPECIMENOrdering Facility: [facility] Address: [address] [place] [address] Result Comment: Cinthya mated Glomerular Filtration Rate (eGFR) is calculated using the 2020 CKD-EPI creatinine equation. This equation utilizes serum creatinine, sex, and age as parameters. The creatinine assay has traceable calibration to isotope dilution-mass spectrometry. Refer to KDIGO guidelines for clinical interpretation. In patients with unstable renal function, e.g. those with acute kidney injury, the eGFR may not accurately reflect actual GFR. Performed By: #### 2 4362-6, ####[facility] LABIA [id number] [place] [id number] [place] Glucose [Mass/Vol] 95 mg/dL Normal 74-99 [facility] Comment on above: Order Comment: Speci men Type: BLOOD SPECIMENOrdering Facility: [facility] Address: [address] [place] [address] Result Comment: The [place] Diabetes Association (ADA) provides guidance for cutoff values for fasting glucose and random glucose. The ADA defines fasting as no caloric intake for at least 8 hours. Fasting plasma glucose results between 100 to 125 mg/dL indicate increased risk for diabetes (prediabetes).Fasting plasma glucose results greater than or equal to 126 mg/dL meet the criteria for diagnosis of diabetes. In the absence of unequivocal hyperglycemia, results should be confirmed by repeat testing. In a patient with classic symptoms of hyperglycemia or hyperglycemic crisis, random plasma glucose results greater than or equal to 200 mg/dL meet the criteria for diagnosis of diabetes.Reference: Standards of Medical Care in Diabetes 2016, [place] [employer]. Diabetes Care. 2016.39(Suppl 1). Performed By: #### 2 4362-6, ####[facility]CL[facility] [id number] [place] [address] [place] Phosphate [Mass/Vol] 3.0 mg/dL Normal 2.7-4.8 [facility] Comment on above: Order Comment: Speci men Type: BLOOD SPECIMENOrdering Facility: [facility] Address: [address] [place] [address] Performed By: #### 2 43610-13, ####[facility]CL[facility] [id number] [place] [address] [place] Potassium [Moles/Vol] 3.2 mmol/L Low 3.7-5.1 [facility] Comment on above: Order Comment: Speci men Type: BLOOD SPECIMENOrdering Facility: [facility] Address: [address] [place], [place] [address] Performed By: #### 2 436[address]-13, ####[facility] [id number] [address] [address] [place] Sodium [Moles/Vol] 136 mmol/L Normal 136-144 [facility] Comment on above: Order Comment: Speci men Type: BLOOD SPECIMENOrdering Facility: [facility] Address: [address] [place] [address] Performed By: #### 2 43610-13, ####[facility]CL[facility] [id number] [place] [address] [place] Urea nitrogen [Mass/Vol] 9 mg/dL Normal 7-21 [facility] Comment on above: Order Comment: Speci men Type: BLOOD SPECIMENOrdering Facility: [facility] Address: [address] [place] [address] Performed By: #### 2 4362-6, 60704-9 ####[facility]CL[facility] [id number] [place] [address] [place] CASE MGT INIT ASSESon 2024 CASE MGT INIT ASSES Normal [facility] CBC W Auto Differential pane l (Bld)on 12-05-2024 Basophils (Bld) [#/Vol] 10*3/uL Normal <0.11 [facility] Comment on above: Order Comment: Speci men Type: BLOOD SPECIMENOrdering Facility: [facility] Address: [address] [place] [address] Performed By: #### 5 7021-8 ####[facility] [id number] [place] [address] [place] Basophils/100 WBC (Bld) 0.2 % Normal [facility] Comment on above: Order Comment: Speci men Type: BLOOD SPECIMENOrdering Facility: [facility] Address: [address] [place] [address] Performed By: #### 5 7021-8 ####[facility] [id number] [place] [address] [place] Differential cell count method Nom (Bld) Auto Normal [facility] Comment on above: Order Comment: Speci men Type: BLOOD SPECIMENOrdering Facility: [facility] Address: [address] [place] [address] Performed By: #### 5 7021-8 ####[facility] [id number] [place] [address] [place] Eosinophils (Bld) [#/Vol] 10*3/uL Normal <0.46 [facility] Comment on above: Order Comment: Speci men Type: BLOOD SPECIMENOrdering Facility: [facility] Address: [address] [place] [address] Performed By: #### 5 7021-8 ####[facility] [id number] [place] [address] [place] Eosinophils/100 WBC (Bld) 0.0 % Normal [facility] Comment on above: Order Comment: Speci men Type: BLOOD SPECIMENOrdering Facility: [facility] Address: [address] [place] [address] Performed By: #### 5 7021-8 ####[facility] [id number] [place] [address] [place] Erythrocyte distribution width (RBC) [Ratio] 15.7 % High 11.5-15.0 [facility] Comment on above: Order Comment: Speci men Type: BLOOD SPECIMENOrdering Facility: [facility] Address: [address] [place] [address] Performed By: #### 5 7021-8 ####[facility] [id number] [address] [place] Hematocrit (Bld) [Volume fraction] 31.0 % Low 36.0-46.0 [facility] Comment on above: Order Comment: Speci men Type: BLOOD SPECIMENOrdering Facility: [facility] Address: [address] [place] [address] Performed By: #### 5 7021-8 ####[facility] [id number] [place] [address] [place] Hemoglobin (Bld) [Mass/Vol] 9.7 g/dL Low 11.5-15.5 [facility] Comment on above: Order Comment: Speci men Type: BLOOD SPECIMENOrdering Facility: [facility] Address: [address] [place] [address] Performed By: #### 5 7021-8 ####[facility] [id number] [place] [address] [place] Immature granulocytes (Bld) [#/Vol] 0.10 10*3/uL High <0.10 [facility] Comment on above: Order Comment: Speci men Type: BLOOD SPECIMENOrdering Facility: [facility] Address: [address] [place] [address] Performed By: #### 5 7021-8 ####[facility] LABCLIA [id number] [place] [address] [place] Immature granulocytes/100 WBC (Bld) 0.9 % Normal [facility] Comment on above: Order Comment: Speci men Type: BLOOD SPECIMENOrdering Facility: [facility] Address: [address] [place] [address] Performed By: #### 5 7021-8 ####[facility] LABCLIA [id number] [place] [address] [place] Lymphocytes (Bld) [#/Vol] 1.15 10*3/uL Normal 1.00-4.00 [facility] Comment on above: Order Comment: Speci men Type: BLOOD SPECIMENOrdering Facility: [facility] Address: [address] [place] [address] Performed By: #### 5 7021-8 ####[facility] LABCLIA [id number] [place] [id number] [place] Lymphocytes/100 WBC (Bld) 9.8 % Normal [facility] Comment on above: Order Comment: Speci men Type: BLOOD SPECIMENOrdering Facility: [facility] Address: [address] [place] [address] Performed By: #### 5 7021-8 ####[facility] LABCLIA [id number] [place] [id number] [place] MCH (RBC) [Entitic mass] 24.3 pg Low 26.0-34.0 [facility] Comment on above: Order Comment: Speci men Type: BLOOD SPECIMENOrdering Facility: [facility] Address: [address] [place] [address] Performed By: #### 5 7021-8 ####[facility] LABIA [id number] [place] [address] [place] MCHC (RBC) [Mass/Vol] 31.3 g/dL Normal 30.5-36.0 [facility] Comment on above: Order Comment: Speci men Type: BLOOD SPECIMENOrdering Facility: [facility] Address: [address] [place] [address] Performed By: #### 5 7021-8 ####[facility] LABCLIA [id number] [place] [address] [place] MCV (RBC) [Entitic vol] 77.5 fL Low 80.0-100.0 [facility] Comment on above: Order Comment: Speci men Type: BLOOD SPECIMENOrdering Facility: [facility] Address: [address] [place] [address] Performed By: #### 5 7021-8 ####[facility] LABIA [id number] [place] [address] [place] Monocytes (Bld) [#/Vol] 0.61 10*3/uL Normal <0.87 [facility] Comment on above: Order Comment: Speci men Type: BLOOD SPECIMENOrdering Facility: [facility] Address: [address] [place] [address] Performed By: #### 5 7021-8 ####[facility] LABCLIA [id number] [place] [address] [place] Monocytes/100 WBC (Bld) 5.2 % Normal [facility] Comment on above: Order Comment: Speci men Type: BLOOD SPECIMENOrdering Facility: [facility] Address: [address] [place] [address] Performed By: #### 5 7021-8 ####[facility] LABCLIA [id number] [place] [address] [place] Neutrophils (Bld) [#/Vol] 9.87 10*3/uL High 1.45-7.50 [facility] Comment on above: Order Comment: Speci men Type: BLOOD SPECIMENOrdering Facility: [facility] Address: [address] [place] [address] Performed By: #### 5 7021-8 ####[facility] LABCLIA [id number] [place] [address] [place] Neutrophils/100 WBC (Bld) 83.9 % Normal [facility] Comment on above: Order Comment: Speci men Type: BLOOD SPECIMENOrdering Facility: [facility] Address: [address] [place] [address] Performed By: #### 5 7021-8 ####[facility]CLIA [id number] [place] [address] [place] Nucleated RBC (Bld) [#/Vol] 10*3/uL Normal <0.01 [facility] Comment on above: Order Comment: Speci men Type: BLOOD SPECIMENOrdering Facility: [facility] Address: [address] [place] [address] Performed By: #### 5 7021-8 ####[facility] LABCLIA [id number] [place] [id number] [place] Nucleated RBC/100 WBC (Bld) [Ratio] 0.0 /100 WBC Normal [facility] Comment on above: Order Comment: Speci men Type: BLOOD SPECIMENOrdering Facility: [facility] Address: [address] [place] [address] Performed By: #### 5 7021-8 ####[facility] LABCLIA [id number] [address] [address] [place] Platelet mean volume (Bld) [Entitic vol] 9.0 fL Normal 9.0-12.7 [facility] Comment on above: Order Comment: Speci men Type: BLOOD SPECIMENOrdering Facility: [facility] Address: [address] [place] [address] Performed By: #### 5 7021-8 ####[facility] LABIA [id number] [place] [id number] [place] Platelets (Bld) [#/Vol] 397 10*3/uL Normal 150-400 [facility] Comment on above: Order Comment: Speci men Type: BLOOD SPECIMENOrdering Facility: [facility] Address: [address] [place] [address] Performed By: #### 5 7021-8 ####[facility] LABIA [id number] [place] [address] [place] RBC (Bld) [#/Vol] 4.00 10*6/uL Normal 3.90-5.20 [facility] Comment on above: Order Comment: Speci men Type: BLOOD SPECIMENOrdering Facility: [facility] Address: [address] [place] [address] Performed By: #### 5 7021-8 ####[facility] LABIA [id number] [place] [id number] [place] WBC (Bld) [#/Vol] 11.75 10*3/uL High 3.70-11.00 [facility] Comment on above: Order Comment: Speci men Type: BLOOD SPECIMENOrdering Facility: [facility] Address: [address] [place] [address] Performed By: #### 5 7021-8 ####[facility] LABIA [id number] [address] [address] [place] ABD/PEL W IVCONon 025 CT ABD/PEL W IVCON Normal [facility] Comprehensive metabolic 2000 panelon 12-05-2024 Albumin [Mass/Vol] 4.8 g/dL Normal 3.9-4.9 [facility] Comment on above: Order Comment: Speci men Type: BLOOD SPECIMENOrdering Facility: [facility] Address: [address] [place] [address] Performed By: #### 3 040-3, 95378-7, 6-4, 37859-1, 35623-0 ####[facility] LABCLIA [id number] [address] [address] [place] ALP [Catalytic activity/Vol] 63 U/L Normal 34-123 [facility] Comment on above: Order Comment: Speci men Type: BLOOD SPECIMENOrdering Facility: [facility] Address: [address] [place] [address] Performed By: #### 3 040-3, 80433-6, 2275-4, 71402-4, 39125-0 ####[facility] LABCLIA [id number] [address] [address] [place] ALT [Catalytic activity/Vol] 18 U/L Normal 7-38 [facility] Comment on above: Order Comment: Speci men Type: BLOOD SPECIMENOrdering Facility: [facility] Address: [address] [place] [address] Performed By: #### 3 040-3, 77660-5, 2275-4, 91460-8, 76869-0 ####[facility] LABCLIA [id number] [address] [address] [place] Anion gap [Moles/Vol] 14 mmol/L Normal 8-15 [facility] Comment on above: Order Comment: Speci men Type: BLOOD SPECIMENOrdering Facility: [facility] Address: [address] [place] [address] Performed By: #### 3 040-3, 92584-3, 2275-4, 79297-1, 76309-2 ####[facility] LABCLIA [id number] [address] [address] [place] AST [Catalytic activity/Vol] 15 U/L Normal 13-35 [facility] Comment on above: Order Comment: Speci men Type: BLOOD SPECIMENOrdering Facility: [facility] Address: [address] [place] [address] Performed By: #### 3 040-3, 86254-8, 6-4, 58645-4, ####[facility] LABCLIA [id number] [address] [address] [place] Bilirubin [Mass/Vol] 0.4 mg/dL Normal 0.2-1.3 [facility] Comment on above: Order Comment: Speci men Type: BLOOD SPECIMENOrdering Facility: [facility] Address: [address] [place] [address] Performed By: #### 3 040-3, 82647-4, 6-4, 91987-7, ####[facility] LABCLIA [id number] [address] [address] [place] Calcium [Mass/Vol] 9.4 mg/dL Normal 8.5-10.2 [facility] Comment on above: Order Comment: Speci men Type: BLOOD SPECIMENOrdering Facility: [facility] Address: [address] [place], [place] [address] Performed By: #### 3 040-3, 31017-1, 6-4, 52628-6, ####[facility] LABIA [id number] [address] [address] [place] Chloride [Moles/Vol] 102 mmol/L Normal 98-107 [facility] Comment on above: Order Comment: Speci men Type: BLOOD SPECIMENOrdering Facility: [facility] Address: [address] [place] [address] Performed By: #### 3 040-3, 84817-2, 6-4, 76724-8, 89369-2 ####[facility] LABIA [id number] [address] [address] [place] CO2 [Moles/Vol] 22 mmol/L Normal 22-30 [facility] Comment on above: Order Comment: Speci men Type: BLOOD SPECIMENOrdering Facility: [facility] Address: [address] [place] [address] Performed By: #### 3 040-3, 34105-2, 6-4, 73764-6, 24572-1 ####[facility] [id number] [place] [id number] [place] Creatinine [Mass/Vol] 0.62 mg/dL Normal 0.58-0.96 [facility] Comment on above: Order Comment: Speci men Type: BLOOD SPECIMENOrdering Facility: [facility] Address: [address] [place] [address] Performed By: #### 3 040-3, 35670-1, 6-4, 72504-8, 67527-4 ####[facility] [id number] [address] [place] Creatinine and Glomerular filtration rate.predicted panel (S/P/Bld) 128 mL/min/1.73m??? Normal >=60 [facility] Comment on above: Order Comment: Speci men Type: BLOOD SPECIMENOrdering Facility: [facility] Address: [address] [place] [address] Result Comment: Cinthya mated Glomerular Filtration Rate (eGFR) is calculated using the 2020 CKD-EPI creatinine equation. This equation utilizes serum creatinine, sex, and age as parameters. The creatinine assay has traceable calibration to isotope dilution-mass spectrometry. Refer to KDIGO guidelines for clinical interpretation. In patients with unstable renal function, e.g. those with acute kidney injury, the eGFR may not accurately reflect actual GFR. Performed By: #### 3 040-3, 78674-0, 6-4, 28027-2, ####[facility] LABCLIA [id number] [address] [address] [place] Glucose [Mass/Vol] 125 mg/dL High 74-99 [facility] Comment on above: Order Comment: Speci men Type: BLOOD SPECIMENOrdering Facility: [facility] Address: [address] [place] [address] Result Comment: The [place] [employer] (ADA) provides guidance for cutoff values for fasting glucose and random glucose. The ADA defines fasting as no caloric intake for at least 8 hours. Fasting plasma glucose results between 100 to 125 mg/dL indicate increased risk for diabetes (prediabetes).Fasting plasma glucose results greater than or equal to 126 mg/dL meet the criteria for diagnosis of diabetes. In the absence of unequivocal hyperglycemia, results should be confirmed by repeat testing. In a patient with classic symptoms of hyperglycemia or hyperglycemic crisis, random plasma glucose results greater than or equal to 200 mg/dL meet the criteria for diagnosis of diabetes.Reference: Standards of Medical Care in Diabetes 2016, [place] [employer]. Diabetes Care. 2016.39(Suppl 1). Performed By: #### 3 040-3, 55112-1, 6-4, 22547-5, ####[facility] LABCLIA [id number] [address] [address] [place] Potassium [Moles/Vol] 3.3 mmol/L Low 3.7-5.1 [facility] Comment on above: Order Comment: Speci men Type: BLOOD SPECIMENOrdering Facility: [facility] Address: [address] [place] [address] Performed By: #### 3 040-3, 60506-2, 6-4, 62659-8, ####[facility] LABIA [id number] [address] [address] [place] Protein [Mass/Vol] 8.0 g/dL Normal 6.3-8.0 [facility] Comment on above: Order Comment: Speci men Type: BLOOD SPECIMENOrdering Facility: [facility] Address: [address] [place], [place] [address] Performed By: #### 3 040-3, 01179-3, 2275-4, 26121-4, ####[facility] LABCLIA [id number] [facility] [address] [place] [address] [place] Sodium [Moles/Vol] 138 mmol/L Normal 136-144 [facility] Comment on above: Order Comment: Speci men Type: BLOOD SPECIMENOrdering Facility: [facility] Address: [address] [place], [place] [address] Performed By: #### 3 040-3, 11541-1, 2275-4, 99183-4, ####[facility] LABCLIA [id number] [address] [place] [address] [place] Urea nitrogen [Mass/Vol] 11 mg/dL Normal 7-21 [facility] Comment on above: Order Comment: Speci men Type: BLOOD SPECIMENOrdering Facility: [facility] Address: [address] [place], [place] [address] Performed By: #### 3 040-3, 82991-1, 2275-4, 95643-7, ####[facility] LABCLIA [id number] [address] [place] [address] [place] ED PROV NOTEon 12-05-2024 ED PROV NOTE Normal [facility] Ferritin SerPl-mCncon 2024 Ferritin [Mass/Vol] 13.9 ng/mL Low 14.7-205.1 [facility] Comment on above: Order Comment: Speci men Type: BLOOD SPECIMENOrdering Facility: [facility] Address: [address] [place], [place] [address] Performed By: #### 3 040-3, 16923-8, 2275-4, 86382-6, 92943-0 ####[facility]CL[facility] [id number] [place] [facility] [id number] [place] HCG Preg Ur Qlon 12-05-2024 HCG ( test) Ql (U) Negative Normal Negative [facility] Comment on above: Order Comment: Speci men Type: URINE SPECIMENOrdering Facility: [facility] Address: [address] [place] [address] Result Comment: This test is intended to aid in the early detection of . Very dilute urine samples, as indicated by a low specific gravity, may not contain lead customer service representative levels of hCG. This test detects intact hCG only. This test does not reliably detect hCG degradation products, including free-beta subunit and beta-core fragment. Therefore, this test may show reduced reactivity in urine after 8 weeks gestation. A number of conditions other than , including trophoblastic disease and certain non-trophoblastic neoplasms cause elevated levels of hCG. As with any assay employing mouse antibodies, the possibility exists for interference by human anti-mouse antibodies (HAMA) in the specimen. The test provides a presumptive diagnosis for . Performed By: #### 2 106-3 ####[facility] LABCL[facility] [id number] [place] [address] [place] HISTORY PHYSICALon HISTORY PHYSICAL Normal [facility] Iron and Iron binding capaci ty panelon 12-05-2024 Iron [Mass/Vol] 47 ug/dL Normal 41-186 [facility] Comment on above: Order Comment: Speci men Type: BLOOD SPECIMENOrdering Facility: [facility] Address: [address] [place] [address] Performed By: #### 3 040-3, 23958-6, 6-4, 24156-8, 17101-1 ####[facility] LABIA [id number] [place] [address] [place] Iron binding capacity [Mass/Vol] 485 ug/dL High 232-386 [facility] Comment on above: Order Comment: Sini men Type: BLOOD SPECIMENOrdering Facility: [facility] Address: [address] [place] [address] Performed By: #### 3 040-3, 70349-3, 6-4, 90002-9, 53052-2 ####[facility]CL[facility] [id number] [place] [id number] [place] Iron/TIBC [Molar ratio] 9.7 % Low 15.0-57.0 [facility] Comment on above: Order Comment: Speci men Type: BLOOD SPECIMENOrdering Facility: [facility] Address: [address] [place] [address] Performed By: #### 3 040-3, 24224-9, 2275-4, 15868-5, 54477-0 ####[facility]CL[facility] [id number] [place] [id number] [place] Lipase SerPl-cCncon 12-06-19 25 Lipase [Catalytic activity/Vol] 14 U/L Low 16-61 [facility] Comment on above: Order Comment: Speci men Type: BLOOD SPECIMENOrdering Facility: [facility] Address: [address] [place] [address] Performed By: #### 3 040-3, 24388-4, 2275-4, 30151-9, 27573-4 ####[facility]CL[facility] [id number] [place] [address] [place] Magnesium SerPl-mCncon 12-05 Magnesium [Mass/Vol] 2.3 mg/dL Normal 1.7-2.3 [facility] Comment on above: Order Comment: Speci men Type: BLOOD SPECIMENOrdering Facility: [facility] Address: [address] [place] [address] Performed By: #### 3 040-3, 75557-2, 2275-4, 57099-1, 91963-3 ####[facility]CL[facility] [id number] [place] [id number] [place] SEPSIS LACTATEon 12-05-2024 Lactate [Moles/Vol] 1.1 mmol/L Normal <=2.0 [facility] Comment on above: Order Comment: Speci men Type: BLOOD SPECIMENOrdering Facility: [facility] Address: [address] [place] [address] Performed By: #### S LACT ####[facility] LABIA [id number] [place] [address] [place] TOXICOLOGY SCREEN, ROUTINE U RINEon 12-05-2024 Amphetamines Confirm (U) [Mass/Vol] Negative Normal Negative [facility] Comment on above: Order Comment: Speci men Type: URINE SPECIMENOrdering Facility: [facility] Address: [address] [place] [address] Result Comment: Cuto ff threshold at 1000 ng/mL. Performed By: #### U TOX2 ####[facility] LABIA [id number] [place] [address] [place] BARBITURATES, URINE Negative Normal Negative [facility] Comment on above: Order Comment: Speci men Type: URINE SPECIMENOrdering Facility: [facility] Address: [address] [place] [address] Result Comment: Cuto ff threshold at 200 ng/mL. Performed By: #### U TOX2 ####[facility]CL[facility] [id number] [place] [address] [place] BENZODIAZEPINES, UR Negative Normal Negative [facility] Comment on above: Order Comment: Speci men Type: URINE SPECIMENOrdering Facility: [facility] Address: [address] [place] [address] Result Comment: Cuto ff threshold at 200 ng/mL. Performed By: #### U TOX2 ####[facility]CL[facility] [id number] [place] [address] [place] Cannabinoids Screen Ql (U) Positive Abnormal Negative [facility] Comment on above: Order Comment: Speci men Type: URINE SPECIMENOrdering Facility: [facility] Address: [address] [place] [address] Result Comment: Cuto ff threshold at 50 ng/mL. Performed By: #### U TOX2 ####[facility]CL[facility] [id number] [place] [address] [place] Cocaine Ql (U) Negative Normal Negative [facility] Comment on above: Order Comment: Speci men Type: URINE SPECIMENOrdering Facility: [facility] Address: [address] [place] [address] Result Comment: Cuto ff threshold at 300 ng/mL. Performed By: #### U TOX2 ####[facility]CL[facility] [id number] [place] [address] [place] Ethanol (U) [Mass/Vol] <11 Normal <11 Cl [facility] Comment on above: Order Comment: Speci men Type: URINE SPECIMENOrdering Facility: [facility] Address: [address] [place] [address] Performed By: #### U TOX2 ####[facility] [id number] [place] [address] [place] Opiates Screen Ql (U) Negative Normal Negative [facility] Comment on above: Order Comment: Speci men Type: URINE SPECIMENOrdering Facility: [facility] Address: [address] [place] [address] Result Comment: Cuto ff threshold at 300 ng/mL. Performed By: #### U TOX2 ####[facility] [id number] [place] [address] [place] oxyCODONE cutoff Screen (U) [Mass/Vol] Negative Normal Negative [facility] Comment on above: Order Comment: Speci men Type: URINE SPECIMENOrdering Facility: [facility] Address: [address] [place] [address] Result Comment: Cuto ff threshold at 100 ng/mL. Performed By: #### U TOX2 ####[facility]CL[facility] [id number] [place] [address] [place] Phencyclidine Ql (U) Negative Normal Negative [facility] Comment on above: Order Comment: Speci men Type: URINE SPECIMENOrdering Facility: [facility] Address: [address] [place] [address] Result Comment: Cuto ff threshold at 25 ng/mL. Performed By: #### U TOX2 ####[facility] [id number] [place] [address] [place] Urinalysis complete panel (U )on 12-05-2024 Bacteria LM.HPF (Urine sed) [#/Area] Negative Normal Negative [facility] Comment on above: Order Comment: Speci men Type: URINE SPECIMENOrdering Facility: [facility] Address: [address] [place] [address] Performed By: #### 2 4356-8 ####[facility]CL[facility] [id number] [place] [address] [place] Bilirubin Ql (U) Negative Normal Negative [facility] Comment on above: Order Comment: Speci men Type: URINE SPECIMENOrdering Facility: [facility] Address: [address] [place] [address] Performed By: #### 2 4356-8 ####[facility]CL[facility] [id number] [place] [address] [place] Clarity (Unsp spec) Clear Normal Clear [facility] Comment on above: Order Comment: Speci men Type: URINE SPECIMENOrdering Facility: [facility] Address: [address] [place] [address] Performed By: #### 2 4356-8 ####[facility] [id number] [place] [address] [place] Color (U) Yellow Normal Yellow [facility] Comment on above: Order Comment: Speci men Type: URINE SPECIMENOrdering Facility: [facility] Address: [address] [place] [address] Performed By: #### 2 4356-8 ####[facility] [id number] [place] [address] [place] Epithelial cells LM.HPF (Urine sed) [#/Area] None Seen Normal [facility] [facility] Comment on above: Order Comment: Speci men Type: URINE SPECIMENOrdering Facility: [facility] Address: [address] [place] [address] Performed By: #### 2 4356-8 ####[facility] LABCLIA [id number] [place] [address] [place] Glucose Test strip (U) [Mass/Vol] Negative Normal Negative [facility] Comment on above: Order Comment: Speci men Type: URINE SPECIMENOrdering Facility: [facility] Address: [address] [place] [address] Performed By: #### 2 4356-8 ####[facility] LABCLIA [id number] [place] [address] [place] Hemoglobin Ql (U) Negative Normal Negative [facility] Comment on above: Order Comment: Speci men Type: URINE SPECIMENOrdering Facility: [facility] Address: [address] [place] [address] Performed By: #### 2 4356-8 ####[facility] LABCLIA [id number] [place] [address] [place] Hyaline casts (Urine sed) [#/Area] 1-3 /LPF Abnormal 0 /LPF [facility] Comment on above: Order Comment: Speci men Type: URINE SPECIMENOrdering Facility: [facility] Address: [address] [place] [address] Performed By: #### 2 4356-8 ####[facility] LABCLIA [id number] [place] [id number] [place] Ketones Ql (U) 4+ Abnormal Negative [facility] Comment on above: Order Comment: Speci men Type: URINE SPECIMENOrdering Facility: [facility] Address: [address] [place] [address] Performed By: #### 2 4356-8 ####[facility] LABCLIA [id number] [place] [address] [place] Leukocyte esterase Test strip Ql (U) Negative Normal Negative [facility] Comment on above: Order Comment: Speci men Type: URINE SPECIMENOrdering Facility: [facility] Address: [address] [place] [address] Performed By: #### 2 4356-8 ####[facility] LABCLIA [id number] [place] [address] [place] Nitrite Ql (U) Negative Normal Negative [facility] Comment on above: Order Comment: Speci men Type: URINE SPECIMENOrdering Facility: [facility] Address: [address] [place] [address] Performed By: #### 2 4356-8 ####[facility] LABCLIA [id number] [place] [address] [place] pH (U) 6.0 [pH] Normal <8.5 [facility] Comment on above: Order Comment: Speci men Type: URINE SPECIMENOrdering Facility: [facility] Address: [address] [place] [address] Performed By: #### 2 4356-8 ####[facility] LABCLIA [id number] [place] [address] [place] Protein (U) [Mass/Vol] 2+ Abnormal Negative [facility] Comment on above: Order Comment: Speci men Type: URINE SPECIMENOrdering Facility: [facility] Address: [address] [place] [address] Performed By: #### 2 4356-8 ####[facility] LABCLIA [id number] [place] [address] [place] RBC LM.HPF (Urine sed) [#/Area] 0-2 /HPF Normal 0-2 /HPF [facility] Comment on above: Order Comment: Speci men Type: URINE SPECIMENOrdering Facility: [facility] Address: [address] [place] [address] Performed By: #### 2 4356-8 ####[facility] LABIA [id number] [place] [address] [place] Specific gravity (U) [Rel density] 1.030 Normal 1.005-1.03 0 [facility] Comment on above: Order Comment: Speci men Type: URINE SPECIMENOrdering Facility: [facility] Address: [address] [place] [address] Performed By: #### 2 4356-8 ####[facility] [id number] [place] [address] [place] Urobilinogen Ql (U) 0.2 EU/dL Normal 0.2-1.0 EU/dL [facility] Comment on above: Order Comment: Speci men Type: URINE SPECIMENOrdering Facility: [facility] Address: [address] [place] [address] Performed By: #### 2 4356-8 ####[facility] LABIA [id number] [place] [address] [place] WBC LM.HPF (Urine sed) [#/Area] 0-5 /HPF Normal 0-5 /HPF [facility] Comment on above: Order Comment: Speci men Type: URINE SPECIMENOrdering Facility: [facility] Address: [address] [place] [address] Performed By: #### 2 4356-8 ####[facility] LABIA [id number] [place] [address] [place] XR ABDOMEN 1V SUPINEon 12-05 XR ABDOMEN 1V SUPINE Normal [facility] XR CHEST 1V FRONTAL PORTon 0 12-05-2024 XR CHEST 1V FRONTAL PORT Normal [facility] .Auto Diffon 12-04-2024 Basophil, Absolute 0.0 10 3/mcL Normal 0.0-0.2 [facility] Comment on above: Performed By: #### MICKI Haley, PREGU #### [address] [address] Basophils/100 WBC (Bld) 0.2 % Normal 0.0-2.5 [facility] Comment on above: Performed By: #### Lianna Wagner UASADIE, PREGU #### [address] [address] Eosinophil, Absolute 0.0 10 3/mcL Normal 0.0-0.7 [facility] Comment on above: Performed By: #### MICKI Haley, PREGU #### [address] [address] Eosinophils/100 WBC (Bld) 0.0 % Normal 0.0-7.0 [facility] Comment on above: Performed By: #### Lianna Wagner UASADIE, PREGU #### [address] [address] Lymphocyte, Absolute 0.7 10 3/mcL Low 0.9-4.3 [facility] Comment on above: Performed By: #### Lianna Wagner UAMIC, PREGU #### [address] [address] Lymphocytes/100 WBC (Bld) 5.4 % Low 20.0-40.0 [facility] Comment on above: Performed By: #### U Kristy UAMIC, PREGU #### [address] [address] Monocyte, Absolute 0.3 10 3/mcL Normal 0.1-1.4 [facility] Comment on above: Performed By: #### U Kristy UAMIC, PREGU #### [address] [address] Monocytes/100 WBC (Bld) 2.1 % Normal 2.0-13.0 [facility] Comment on above: Performed By: #### U A UAMIC, PREGU #### [address] [address] Neutrophils/100 WBC (Bld) 92.3 % High 50.0-75.0 [facility] Comment on above: Performed By: #### U A UAMIC, PREGU #### [address] [address] .GFRon 12-04-2024 Estimated Glomerular Filtration Rate 99 ml/min/1.73sqm Normal [facility] Comment on above: Result Comment: Stages of Chronic Kidney Disease (CKD) Stage Description eGFR(ml/min/1.73 sq.m.) CKD 1 Normal kidney function or >=90 normal kindney function with possible kidney damage (ex. Proteinuria) CKD 2 Kidney damage with mild loss 60-89 of kidney function CKD 3a Mild to moderate loss of kidney 45-59 function CKD 3b Moderate to severe loss of 30-44 of kindey function CKD 4 Severe loss of kidney function 15-29 CKD 5 Kidney failure <15 Note: (go live 2024) the eGFR calculation was updated to the 2020 CKD-EPI creatinine equation without a race factor to calculate the eGFR results. Performed By: #### Lianna Wagner UASADIE, PREGU #### [address] [address] .MDWon 12-04-2024 Monocyte Distribution Width 15.17 Normal 0.00-20.00 [facility] Comment on above: Result Comment: For ED adult patients suspected of sepsis, MDW<=20.0 does not rule out sepsis or risk of sepsis Performed By: #### U A UAMIC, PREGU #### [address] [address] .NEUABSon 12-04-2024 Neutrophil, Absolute 11.4 10 3/mcL High 2.3-8.1 [facility] Comment on above: Performed By: #### U A, UAMIC, PREGU #### [address] [address] .Urinalysis Microscopic (AO) on 12-04-2024 UA Bacteria Trace Abnormal [facility] Comment on above: Performed By: #### U A, UAMIC, PREGU #### [address] [address] UA RBC 0-5 Abnormal None Seen [facility] Comment on above: Performed By: #### U A, UAMIC, PREGU #### [address] [address] UA Squam Epithelial 15-25 Abnormal None Seen [facility] Comment on above: Performed By: #### U A, UAMIC, PREGU #### [place] [address] UA WBC 0-5 Abnormal None Seen [facility] Comment on above: Performed By: #### U A, UAMIC, PREGU #### [place] [address] CBCon 12-04-2024 Erythrocyte distribution width (RBC) [Ratio] 16.5 % High 11.5-15.5 [facility] Comment on above: Performed By: #### U A, UAMIC, PREGU #### [place] [address] Hematocrit (Bld) [Volume fraction] 33.7 % Low 34.0-46.0 [facility] Comment on above: Performed By: #### U A, UAMIC, PREGU #### [place] [address] Hgb 10.8 G/dL Low 12.0-16.0 [facility] Comment on above: Performed By: #### U A, UAMIC, PREGU #### [place] [address] MCH (RBC) [Entitic mass] 24.3 pg Low 27.0-33.0 [facility] Comment on above: Performed By: #### U A, UAMIC, PREGU #### [place] [address] MCHC 32.1 G/dL Normal 32.0-36.0 [facility] Comment on above: Performed By: #### MICKI Haley, PREGU #### [address] [address] MCV (RBC) [Entitic vol] 75.7 fL Low 80.0-99.0 [facility] Comment on above: Performed By: #### MICKI Haley, PREGU #### [address] [address] Platelet 435 10 3/mcL Normal 150-450 [facility] Comment on above: Performed By: #### MICKI Haley, PREGU #### [address] [address] Platelet mean volume (Bld) [Entitic vol] 6.7 fL Normal 6.6-10.5 [facility] Comment on above: Performed By: #### MICKI Haley, PREGU #### [address] [address] RBC 4.45 10 6/mcL Normal 4.10-5.30 [facility] Comment on above: Performed By: #### MICKI Haley PREGU #### [address] [address] WBC 12.4 10 3/mcL High 4.5-10.8 [facility] Comment on above: Performed By: #### MICKI Haley, PREGU #### [address] [address] CMPon 12-04-2024 Albumin Level 4.5 G/dL Normal 3.5-5.0 [facility] Comment on above: Performed By: #### MICKI Haley, PREGU #### [address] [address] Albumin/Globulin [Mass ratio] 1.0 {ratio} Low 1.1-2.5 [facility] Comment on above: Performed By: #### MICKI Haley, PREGU #### [address] [address] ALP [Catalytic activity/Vol] 79 U/L Normal 40-135 [facility] Comment on above: Performed By: #### U Kristy UAMIC, PREGU #### [address] [address] ALT [Catalytic activity/Vol] 33 U/L Normal 14-59 [facility] Comment on above: Performed By: #### U Kristy UAMIC, PREGU #### [address] [address] AST [Catalytic activity/Vol] 18 U/L Normal 10-40 [facility] Comment on above: Performed By: #### Lianna Wagner UASADIE PREGU #### [place] [address] Bili Total 0.4 mg/dL Normal 0.2-1.0 [facility] Comment on above: Result Comment: Use of this assay is not recommended for patients undergoing treatment with eltrombopag due to the potential for falsely elevated results. Performed By: #### Lianna Wagner UAMIC, PREGU #### [place] [address] BUN/Creatinine Ratio 14 ratio Normal 7-27 [facility] Comment on above: Performed By: #### MICKI Haley, PREGU #### [address] [address] Calcium [Mass/Vol] 9.7 mg/dL Normal 8.4-10.2 [facility] Comment on above: Performed By: #### U A UAMIC, PREGU #### [address] [address] Chloride [Moles/Vol] 103 mmol/L Normal 98-107 [facility] Comment on above: Performed By: #### U A UAMIC, PREGU #### [address] [address] CO2 [Moles/Vol] 27 mmol/L Normal 22-29 [facility] Comment on above: Performed By: #### U Kristy UAMIC, PREGU #### [address] [address] Creatinine [Mass/Vol] 0.84 mg/dL Normal 0.55-1.02 [facility] Comment on above: Result Comment: Test ing performed on Siemens Dimension EXL analyzer using a modified kinetic Ale technique. Performed By: #### U A, UAMIC, PREGU #### [address] [address] Electrolyte Balance 10.0 mEq/L Normal 4.0-15.0 [facility] Comment on above: Performed By: #### U A, UAMIC, PREGU #### [address] [address] Globulin 4.3 G/dL High 1.5-3.8 [facility] Comment on above: Performed By: #### U A, UAMIC, PREGU #### [place] [address] Glucose [Mass/Vol] 155 mg/dL High 70-105 [facility] Comment on above: Performed By: #### U A, UAMIC, PREGU #### [address] [address] Potassium [Moles/Vol] 3.7 mmol/L Normal 3.5-5.1 [facility] Comment on above: Performed By: #### U A, UAMIC, PREGU #### [place] [address] Sodium [Moles/Vol] 140 mmol/L Normal 136-145 [facility] Comment on above: Performed By: #### U A, UAMIC, PREGU #### [address] [address] Total Protein 8.8 G/dL High 6.4-8.2 [facility] Comment on above: Performed By: #### U A, UAMIC, PREGU #### [address] [address] Urea nitrogen [Mass/Vol] 12 mg/dL Normal 7-18 [facility] Comment on above: Performed By: #### U MICKI Wagner PREGU #### [facility] [address], [place] [address] CT ABD/PELVIS W/ IV CONTRAST ONLYon 12-04-2024 CT ABD/PELVIS W/ IV CONTRAST ONLY ORIGINAL EXAMINATION: CT OF THE ABDOMEN AND PELVIS WITH CONTRAST 12/04/2024 5:47 pm TECHNIQUE: CT of the abdomen and pelvis was performed with the administration of intravenous contrast. Multiplanar reformatted images are provided for review. Automated exposure control, iterative reconstruction, and/or weight based adjustment of the mA/kV was utilized to reduce the radiation dose to as low as reasonably achievable. COMPARISON: CT abdomen pelvis 09/07/2024 HISTORY: ORDERING SYSTEM PROVIDED HISTORY: Reason for Exam: pain FINDINGS: The heart is normal in size. No pericardial thickening or effusion. Visualized lower lungs are without acute abnormality. The aorta is nonaneurysmal with no atherosclerosis. No adenopathy within the abdomen or pelvis. The liver, spleen, pancreas, and bilateral adrenal glands are unremarkable. Prior cholecystectomy. The kidneys enhance symmetrically. No hydronephrosis or renal calculi. Bladder is unremarkable. Prior hysterectomy. No adnexal lesion. No pneumoperitoneum or free fluid. The large and small bowel are normal in caliber. Small hiatal hernia. No inflammatory changes of the GI tract. No acute osseous abnormality. IMPRESSION: No acute abnormality within the abdomen or pelvis. I have personally reviewed the images of this examination and agree with the resident's findings and interpretation. Interpreted by: Craig Chirinos Preliminary Report By: Xavier Virk Electronically signed By Craig Chirinos Dictated Date: 12/04/2024 5:52:10 PM Prelim Date: 12/04/2024 5:55:34 PM Sign Date: 12/04/2024 6:01:34 PM Ordering Provider: MANISHA FRIED Normal [facility] LIPon 12-04-2024 Lipase Level 18 U/L Normal 16-77 [facility] Comment on above: Performed By: #### U MICKI Wagner PREGU #### [facility] [address], [place] [address] UAon 12-04-2024 Color (U) Yellow Normal [facility] Comment on above: Performed By: #### U A, UAMIC, PREGU #### [place] [address] Glucose (U) [Mass/Vol] Negative Normal Negative [facility] Comment on above: Performed By: #### U A, UAMIC, PREGU #### [place] [address] Ketones Ql (U) >=160 Abnormal Negative [facility] Comment on above: Performed By: #### U A, UAMIC, PREGU #### [place] [address] UA Appear Clear Normal Clear [facility] Comment on above: Performed By: #### U A, UAMIC, PREGU #### [place] [address] UA Blood Trace Abnormal Negative [facility] Comment on above: Performed By: #### U A, UAMIC, PREGU #### [place] [address] UA Leuk Est Negative Normal Negative [facility] Comment on above: Performed By: #### U A, UAMIC, PREGU #### [place] [address] UA Nitrite Negative Normal Negative [facility] Comment on above: Performed By: #### U A, UAMIC, PREGU #### [place] [address] UA pH 5.5 Normal 5.0 - 8.0 [facility] Comment on above: Performed By: #### U A, UAMIC, PREGU #### [place] [address] UA Protein 100 mg/dL Abnormal Negative [facility] Comment on above: Performed By: #### U A, UAMIC, PREGU #### [place] [address] UA Spec Grav 1.025 Normal 1.015-1.[address] [place] [address] Comment on above: Performed By: #### U A, UAMIC, PREGU #### [address] [address] UA Specimen Type Clean Catch Normal [facility] Comment on above: Performed By: #### U A, UAMIC, PREGU #### [address] [address] UA Urobilinogen 0.2 E.U./dL Normal 0.2-1.0 [facility] Comment on above: Performed By: #### U A, UAMIC, PREGU #### [place] [address] Urobilinogen (U) [Mass/Vol] Negative Normal Negative [facility] Comment on above: Performed By: #### U A, UAMIC, PREGU #### [place] [address] UDRUGon 12-04-2024 Amphetamine (u) Negative Normal Negative [facility] Comment on above: Performed By: #### U A, UAMIC, PREGU #### [place] [address] Barbiturate (u) Negative Normal Negative [facility] Comment on above: Performed By: #### U A, UAMIC, PREGU #### [address] [address] Benzodiazepine (u) Positive Abnormal Negative [facility] Comment on above: Performed By: #### U A, UAMIC, PREGU #### [address] [address] Cannabinoid (u) Positive Abnormal Negative [facility] Comment on above: Performed By: #### U A, UAMIC, PREGU #### [address] [address] Cocaine Ql (U) Negative Normal Negative [facility] Comment on above: Performed By: #### U A, UAMIC, PREGU #### [place] [address] Methadone Ql (U) Negative Normal Negative [facility] Comment on above: Performed By: #### U A, UAMIC, PREGU #### [address] [address] Opiate (u) Negative Normal Negative [facility] Comment on above: Performed By: #### U A, UAMIC, PREGU #### [address] [address] PCP (u) Negative Normal Negative [facility] Comment on above: Performed By: #### U A, UAMIC, PREGU #### [address] [address] Urine Drugs screened: See Below Normal [facility] Comment on above: Result Comment: This drug screen is a presumptive screening only. No confirmation will be performed unless requested. Drugs screened include: Threshold Amphetamines/Methamphetamines 1,000 ng/mL Barbiturates 200 ng/mL Benzodiazepine metabolites 200 ng/mL Cannabinoids (THC metabolites) 50 ng/mL Cocaine 300 ng/mL Opiates 300 ng/mL Methadone 300 ng/mL Phencyclidine (PCP) 25 ng/mL Testing has been performed FOR MEDICAL PURPOSES ONLY. Performed By: #### U ALILIANMIC, PREGU #### [address] [address] Amylaseon 11-30-2024 KIMBERLY 36 U/L Normal 28-100 [facility] Comment on above: Performed By: #### L 500.4050, L501.2400, L501.9520, L100.0100, L501.2450 ####[facility] [address] [place], [address] CBC W/Diff, Automatedon 11-06 Absolute Lymph 2.14 X10 3/uL Normal 0.83-4.51 [facility] Comment on above: Performed By: #### L 500.4050, L501.2400, L501.9520, L100.0100, L501.2450 ####[facility] [address] [place], [address] Absolute Neut 4.5 X10 3/uL Normal 2.0-7.7 [facility] Comment on above: Performed By: #### L 500.4050, L501.2400, L501.9520, L100.0100, L501.2450 ####[facility] [address] [place], [address] Basophils/100 WBC (Bld) 0.7 % Normal 0-1 [facility] Comment on above: Performed By: #### L 500.4050, L501.2400, L501.9520, L100.0100, L501.2450 ####[facility] [address] [place], [address] Eosinophils/100 WBC (Bld) 3.3 % Normal 0-5 [facility] Comment on above: Performed By: #### L 500.4050, L501.2400, L501.9520, L100.0100, L501.2450 ####[facility] [address] [place], [address] Erythrocyte distribution width (RBC) [Ratio] 15.5 % High 11.6-14.6 [facility] Comment on above: Performed By: #### L 500.4050, L501.2400, L501.9520, L100.0100, L501.2450 ####[facility] [address] [place], [address] Hematocrit (Bld) [Volume fraction] 35.4 % Low 37-47 [facility] Comment on above: Performed By: #### L 500.4050, L501.2400, L501.9520, L100.0100, L501.2450 ####[facility] [address] [place], [address] Hemoglobin (Bld) [Mass/Vol] 10.6 g/dL Low 12.0-15.0 [facility] Comment on above: Performed By: #### L 500.4050, L501.2400, L501.9520, L100.0100, L501.2450 ####[facility] [address] [place], [address] IG% 0.400 Normal 0.0-0.9 [facility] Comment on above: Result Comment: IG% - Immature Granulocytes (promyelocytes, myelocytes and metamyelocytes) > 1% indicates that a LEFT SHIFT is Present. Performed By: #### L 500.4050, L501.2400, L501.9520, L100.0100, L501.2450 ####[facility] [address] [place], [address] Lymphocytes/100 WBC (Bld) 28.4 % Normal 19-41 [facility] Comment on above: Performed By: #### L 500.4050, L501.2400, L501.9520, L100.0100, L501.2450 ####[facility] [address] [place], [address] MCH (RBC) [Entitic mass] 24.1 pg Low 27.0-32.0 [facility] Comment on above: Performed By: #### L 500.4050, L501.2400, L501.9520, L100.0100, L501.2450 ####[facility] [address] [place], [address] MCHC (RBC) [Mass/Vol] 29.9 g/dL Low 32-36 [facility] Comment on above: Performed By: #### L 500.4050, L501.2400, L501.9520, L100.0100, L501.2450 ####[facility] [address] [place], [address] MCV (RBC) [Entitic vol] 80.5 fL Low 81-99 [facility] Comment on above: Performed By: #### L 500.4050, L501.2400, L501.9520, L100.0100, L501.2450 ####[facility] [address] [place], [address] Monocytes/100 WBC (Bld) 6.9 % Normal 0-10 [facility] Comment on above: Performed By: #### L 500.4050, L501.2400, L501.9520, L100.0100, L501.2450 ####[facility] [address] [place], [address] Neutrophils/100 WBC (Bld) 60.3 % Normal 47-70 [facility] Comment on above: Performed By: #### L 500.4050, L501.2400, L501.9520, L100.0100, L501.2450 ####[facility] [address] [place], [address] Nucleated RBC (Bld) [#/Vol] 0 10*3/uL Normal 0-5 [facility] Comment on above: Performed By: #### L 500.4050, L501.2400, L501.9520, L100.0100, L501.2450 ####[facility] [address] [place], [address] Platelet mean volume (Bld) [Entitic vol] 9.9 fL Normal 6.2-12.0 [facility] Comment on above: Performed By: #### L 500.4050, L501.2400, L501.9520, L100.0100, L501.2450 ####[facility] [address] [place], [address] Platelets (Bld) [#/Vol] 373 10*3/uL Normal 150-450 [facility] Comment on above: Performed By: #### L 500.4050, L501.2400, L501.9520, L100.0100, L501.2450 ####[facility] [address] [place], [address] RBC (Bld) [#/Vol] 4.40 10*6/uL Normal 4.2-5.4 [facility] Comment on above: Performed By: #### L 500.4050, L501.2400, L501.9520, L100.0100, L501.2450 ####[facility] [address] [place], [address] RDW SD 44.8 fl High 35.1-43.9 [facility] Comment on above: Performed By: #### L 500.4050, L501.2400, L501.9520, L100.0100, L501.2450 ####[facility] [address] [place], [address] WBC (Bld) [#/Vol] 7.5 10*3/uL Normal 4.4-11.0 [facility] Comment on above: Performed By: #### L 500.4050, L501.2400, L501.9520, L100.0100, L501.2450 ####[facility] [address] [place], [address] Comprehensive Metabolic [facility] 11-30-2024 Albumin [Mass/Vol] 4.3 g/dL Normal 3.5-5.0 [facility] Comment on above: Performed By: #### L 500.4050, L501.2400, L501.9520, L100.0100, L501.2450 ####[facility] [address] [place], [address] Albumin/Globulin [Mass ratio] 1.2 {ratio} Normal 0.9-2.4 [facility] Comment on above: Performed By: #### L 500.4050, L501.2400, L501.9520, L100.0100, L501.2450 ####[facility] [address] [place], [address] ALK PHOS 69 U/L Normal 35-104 [facility] Comment on above: Performed By: #### L 500.4050, L501.2400, L501.9520, L100.0100, L501.2450 ####[facility] [address] [place], [address] ALT [Catalytic activity/Vol] 22 U/L Normal <=34 [facility] Comment on above: Performed By: #### L 500.4050, L501.2400, L501.9520, L100.0100, L501.2450 ####[facility] [address] [place], [address] AST [Catalytic activity/Vol] 20 U/L Normal <=31 [facility] Comment on above: Performed By: #### L 500.4050, L501.2400, L501.9520, L100.0100, L501.2450 ####[facility] [address] [place], [address] Bilirubin [Mass/Vol] 0.17 mg/dL Normal 0.00-1.30 [facility] Comment on above: Performed By: #### L 500.4050, L501.2400, L501.9520, L100.0100, L501.2450 ####[facility] [address] [place], [address] BUN/CRE 20.9 RATIO High 10-20 [facility] Comment on above: Performed By: #### L 500.4050, L501.2400, L501.9520, L100.0100, L501.2450 ####[facility] [address] [place], [address] Calcium [Mass/Vol] 9.1 mg/dL Normal 7.6-11.0 [facility] Comment on above: Performed By: #### L 500.4050, L501.2400, L501.9520, L100.0100, L501.2450 ####[facility] [address] [place], [address] Chloride [Moles/Vol] 105 mmol/L Normal 98-108 [facility] Comment on above: Performed By: #### L 500.4050, L501.2400, L501.9520, L100.0100, L501.2450 ####[facility] [address] [place], [address] CO2 [Moles/Vol] 22.9 mmol/L Normal 21.0-32.0 [facility] Comment on above: Performed By: #### L 500.4050, L501.2400, L501.9520, L100.0100, L501.2450 ####[facility] [address] [place], [address] Creatinine [Mass/Vol] 0.64 mg/dL Low 0.70-1.20 [facility] Comment on above: Performed By: #### L 500.4050, L501.2400, L501.9520, L100.0100, L501.2450 ####[facility] [address] [place], [address] GAP 11 Normal 5-15 [facility] Comment on above: Performed By: #### L 500.4050, L501.2400, L501.9520, L100.0100, L501.2450 ####[facility] [address] [place], [address] GFR/1.73 sq M.predicted among non-blacks MDRD (S/P/Bld) [Vol rate/Area] 126 mL/min/{1.73_m2} Normal >60 [facility] Comment on above: Result Comment: mL/m in/1.73m2 CKD-EPI Creatinine Equation (2020) Performed By: #### L 500.4050, L501.2400, L501.9520, L100.0100, L501.2450 ####[facility] [address] [place], [address] Globulin (S) [Mass/Vol] 3.5 g/dL Normal 2.2-4.2 [facility] Comment on above: Performed By: #### L 500.4050, L501.2400, L501.9520, L100.0100, L501.2450 ####[facility] [address] [place], [address] Glucose [Mass/Vol] 82 mg/dL Normal 70-99 [facility] Comment on above: Performed By: #### L 500.4050, L501.2400, L501.9520, L100.0100, L501.2450 ####[facility] [address] [place], [address] Potassium [Moles/Vol] 4.3 mmol/L Normal 3.3-5.1 [facility] Comment on above: Performed By: #### L 500.4050, L501.2400, L501.9520, L100.0100, L501.2450 ####[facility] [address] [place], [address] Sodium [Moles/Vol] 139 mmol/L Normal 133-145 [facility] Comment on above: Performed By: #### L 500.4050, L501.2400, L501.9520, L100.0100, L501.2450 ####[facility] [address] [place], [address] T PROT 7.8 g/dL Normal 5.9-8.4 [facility] Comment on above: Performed By: #### L 500.4050, L501.2400, L501.9520, L100.0100, L501.2450 ####[facility] [address] [place], [address] Urea nitrogen [Mass/Vol] 13 mg/dL Normal 4-19 [facility] Comment on above: Performed By: #### L 500.4050, L501.2400, L501.9520, L100.0100, L501.2450 ####[facility] [address] [place], [address] Internal Medicine Office Vis iton 11-30-2024 Internal Medicine Office Visit [facility] [address] [place] [address] [place] [address] OFFICE VISIT Date of Service: 11/30/24 MR#: [id number] Acct: [id number] Name: ADDIS TORRES Rep #: [id number] : 2000 Provider: ISHMAEL Eubanks Age/Sex: 24/F Location: [facility] Status: Signed Intake Vital Signs 09/17/24 06:00 11/30/24 13:04 11/30/24 14:08 Height 5 ft 7 in 5 ft 7 in Weight: 222 lb 6 oz BMI 34.8 BP 124/78 H Blood Pressure Location Lt brachial Position Sitting Respiration 12 Pulse 110 H 88 Pulse Source Monitor Auscultation Temp 98.7 F Temp Source Temporal Pulse Oximetry (%) 97 Oxygen Delivery Method room air Intake Visit Reasons: ACUTE - HOSPITAL FU/KEEP 1 HR Chief Complaint: hospital f/u 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 Instructions: Home Medication placed on hold at Doctor's office dicyclomine 10 mg capsule 10 mg PO TID #90 caps 11/30/24 Rx gabapentin 600 mg tablet 600 mg PO TID #90 tabs 11/30/24 Rx hyoscyamine sulfate 0.125 mg/mL 0.125 mg PO TID 11/30/24 11/30/24 History oral drops Held on 11/30/24. Instructions: Home Medication placed on hold at Doctor's office methocarbamol 500 mg tablet 500 mg PO TID #90 tabs 11/30/24 Rx metoclopramide HCl 10 mg/mL oral 5 mg PO TID 11/30/24 11/30/24 Hist ory concentrate mirtazapine 15 mg disintegrating 15 mg PO QHS #30 tabs 11/30/24 Rx tablet ondansetron 4 mg disintegrating 4 mg PO Q6H PRN nausea and 5 11/30/24 Rx tablet vomiting #90 tabs pantoprazole 40 mg tablet,delayed 40 mg PO BID #60 TABLETS 11/30/24 11/30/24 Rx release trazodone 50 mg tablet 50 mg PO QHS PRN sleep #30 tabs 11/30/24 Rx Have you fallen in the past year?: No PFSH Medical History (Updated 11/30/24 @ 14:01 by Berry QUIÑONES, PA) Cholecystectomy planned Intractable nausea and vomiting Gastroparesis Cyclic vomiting syndrome History of alcohol abuse Ureteral stricture, left Retained ureteral stent Hypertension Depression Ureterolithiasis Ureter injury Non-smoker Endometrial cancer PCOS (polycystic ovarian syndrome) Surgical History History of renal stent History of hysterectomy for cancer Family History Father No problems noted. Mother Anxiety and depression GERD (gastroesophageal reflux disease) Social History household members: family Smoking Status: Never smoker alcohol intake: former substance use type: marijuana and other details: No marijuana use in the last month HPI HPI Chief Complaint: hospital f/u Details: ADDIS TORRES, is a 24 F who presents to the office today for refills on her medications Patient was diagnosed with uterine cancer at age 19 and she had to undergo a hysterectomy although they kept her ovaries. She states that she saw oncology for a short time after her diagnosis but has not seen them for several years. She has not seen Dog Bather for several years also. Patient has a long history of gastroparesis along with cyclic vomiting syndrome. She states that she was in the hospital on and off for about 3 months. She had been seen multiple hospitals and emergency rooms and eventually wound up inpatient at [facility]. She states that they eventually calmed this down after giving her ketamine. She was sick for a little bit after being home but has been doing ok for the past few days. Patient was seeing Dr. Combs but she states that they told her there was nothing else he could do for her and so she wasn't a patient there anymore. Patient states that her bowels have always been ok not having any diarrhea or constipation issues. Her mother has similar stomach issues although obvious hers are way worse than moms Patient does have a history of anxiety and depression and previously was on medication but states that she has not been taking anything for around a year as her previous PCP stopped practicing and so she was unable to get this and then because of her stomach issues she just had other issues. She is a good water drinker No nicotine use No caffeine use No ETOH use She states that she feels like her diet is good overall when she is feeling well and able t (more content not included)... Normal [facility] Lipaseon 11-30-2024 Lipase [Catalytic activity/Vol] 32 U/L Normal 13-75 [facility] Comment on above: Result Comment: Isak medina note: LIPASE revised reference range effective 22. New Lipase methodology. Expected to produce lower values than the previous assay method. NEW Reference Range: 13 - 75 U/L Performed By: #### L 500.4050, L501.2400, L501.9520, L100.0100, L501.2450 ####[facility] [address] [place], [address] Thyroid Stim Hormone (TSH)on 11-30-2024 TSH 2.740 uIU/mL Normal 0.300-4.20 0 [facility] Comment on above: Performed By: #### L 500.4050, L501.2400, L501.9520, L100.0100, L501.2450 ####[facility] [address] [place], [address] CNCOon 11-07-2024 CNCO Letter Text Normal [facility] CNPNon 11-04-2024 CNPN Normal [facility] CNDSon 10-16-2024 CNDS Normal [facility] Magnesium SerPl-mCncon 10-15 Magnesium [Mass/Vol] 2.2 mg/dL Normal 1.7-2.3 [facility] Comment on above: Order Comment: Speci men Type: BLOOD SPECIMENOrdering Facility: [facility] Address: [address] [place] [address] Performed By: #### 2 4362-6, ####[facility] LABCL[facility] [id number] [place] [address] [place] Renal function 2000 panelon 10-15-2024 Albumin [Mass/Vol] 3.4 g/dL Low 3.9-4.9 [facility] Comment on above: Order Comment: Speci men Type: BLOOD SPECIMENOrdering Facility: [facility] Address: [address] [place] [address] Performed By: #### 2 4362-6, ####[facility]CL[facility] [id number] [place] [id number] [place] Anion gap [Moles/Vol] 16 mmol/L High 8-15 [facility] Comment on above: Order Comment: Speci men Type: BLOOD SPECIMENOrdering Facility: [facility] Address: [address] [place] [address] Performed By: #### 2 4362-6, ####[facility]CL[facility] [id number] [place] [id number] [place] Calcium [Mass/Vol] 8.9 mg/dL Normal 8.5-10.2 [facility] Comment on above: Order Comment: Speci men Type: BLOOD SPECIMENOrdering Facility: [facility] Address: [address] [place] [address] Performed By: #### 2 4362-6, ####[facility]CL[facility] [id number] [facility] [place] [id number] [place] Chloride [Moles/Vol] 98 mmol/L Normal 98-107 [facility] Comment on above: Order Comment: Speci men Type: BLOOD SPECIMENOrdering Facility: [facility] Address: [address] [place] [address] Performed By: #### 2 4362-6, ####[facility]CL[facility] [id number] [place] [address] [place] CO2 [Moles/Vol] 24 mmol/L Normal 22-30 [facility] Comment on above: Order Comment: Speci men Type: BLOOD SPECIMENOrdering Facility: [facility] Address: [address] [place] [address] Performed By: #### 2 4362-6, ####[facility]CL[facility] [id number] [place] [id number] [place] Creatinine [Mass/Vol] 0.51 mg/dL Low 0.58-0.96 [facility] Comment on above: Order Comment: Speci men Type: BLOOD SPECIMENOrdering Facility: [facility] Address: [address] [place] [address] Performed By: #### 2 4362-6, ####[facility] [id number] [place] [id number] [place] Creatinine and Glomerular filtration rate.predicted panel (S/P/Bld) 134 mL/min/1.73m??? Normal >=60 [facility] Comment on above: Order Comment: Alex mcgovern Type: BLOOD SPECIMENOrdering Facility: [facility] Address: [address] [place] [address] Result Comment: Cinthya mated Glomerular Filtration Rate (eGFR) is calculated using the 2020 CKD-EPI creatinine equation. This equation utilizes serum creatinine, sex, and age as parameters. The creatinine assay has traceable calibration to isotope dilution-mass spectrometry. Refer to KDIGO guidelines for clinical interpretation. In patients with unstable renal function, e.g. those with acute kidney injury, the eGFR may not accurately reflect actual GFR. Performed By: #### 2 4362-6, ####[facility] [id number] [place] [address] [place] Glucose [Mass/Vol] 115 mg/dL High 74-99 [facility] Comment on above: Order Comment: Alex mcgovern Type: BLOOD SPECIMENOrdering Facility: [facility] Address: [address] [place] [address] Result Comment: The [place] Diabetes [employer] (ADA) provides guidance for cutoff values for fasting glucose and random glucose. The ADA defines fasting as no caloric intake for at least 8 hours. Fasting plasma glucose results between 100 to 125 mg/dL indicate increased risk for diabetes (prediabetes).Fasting plasma glucose results greater than or equal to 126 mg/dL meet the criteria for diagnosis of diabetes. In the absence of unequivocal hyperglycemia, results should be confirmed by repeat testing. In a patient with classic symptoms of hyperglycemia or hyperglycemic crisis, random plasma glucose results greater than or equal to 200 mg/dL meet the criteria for diagnosis of diabetes.Reference: Standards of Medical Care in Diabetes 2016, [place] [employer]. Diabetes Care. 2016.39(Suppl 1). Performed By: #### 2 4362-6, ####[facility] [id number] [place] [id number] [place] Phosphate [Mass/Vol] 3.6 mg/dL Normal 2.7-4.8 [facility] Comment on above: Order Comment: Alex mcgovern Type: BLOOD SPECIMENOrdering Facility: [facility] Address: [address] [place] [address] Performed By: #### 2 4362-6, ####[facility] LABIA [id number] [address] [address] [place] Potassium [Moles/Vol] Normal [facility] Comment on above: Order Comment: Speci men Type: BLOOD SPECIMENOrdering Facility: [facility] Address: [address] [place] [address] Result Comment: Unab le to assay due to interference from hemolysis. Suggest reorder as clinically indicated. Performed By: #### 2 4362-6, ####[facility] LABIA [id number] [place] [address] [place] Sodium [Moles/Vol] 138 mmol/L Normal 136-144 [facility] Comment on above: Order Comment: Speci men Type: BLOOD SPECIMENOrdering Facility: [facility] Address: [address] [place] [address] Performed By: #### 2 4362-6, ####[facility] LABIA [id number] [place] [id number] [place] Urea nitrogen [Mass/Vol] 8 mg/dL Normal 7-21 [facility] Comment on above: Order Comment: Speci men Type: BLOOD SPECIMENOrdering Facility: [facility] Address: [address] [place] [address] Performed By: #### 2 4362-6, ####[facility] LABIA [id number] [address] [address] [place] THERAPY NTon 10-15-2024 THERAPY NT Normal [facility] AMPHETAMINE CONFIRM, URINEon 10-14-2024 NOTE (UAMPC) Normal [facility] Comment on above: Order Comment: Speci men Type: URINE SPECIMENOrdering Facility: [facility] Address: [address] [place] [address] Result Comment: For medical purposes only. Not valid for legal or forensic purposes.This test was developed, and its performance characteristics determined by the [facility] Department of Pathology and Laboratory Medicine. It has not been cleared or approved by the FDA. The [facility] Department of Pathology and Laboratory Medicine is regulated under CLIA as qualified to perform high-complexity testing. This test is used for clinical purposes. It should not be regarded as investigational or for research. Performed By: #### U AMP ####[facility]IA [id number] [address] [place] CBC panel Auto (Bld)on 10-14 Erythrocyte distribution width (RBC) [Ratio] 15.2 % High 11.5-15.0 [facility] Comment on above: Order Comment: Speci men Type: BLOOD SPECIMENOrdering Facility: [facility] Address: [address] [place] [address] Performed By: #### 5 8410-2 ####[facility] [id number] [address] [place] Hematocrit (Bld) [Volume fraction] 46.0 % Normal 36.0-46.0 [facility] Comment on above: Order Comment: Speci men Type: BLOOD SPECIMENOrdering Facility: [facility] Address: [address] [place] [address] Performed By: #### 5 8410-2 ####[facility] [id number] [place] [address] [place] Hemoglobin (Bld) [Mass/Vol] 14.1 g/dL Normal 11.5-15.5 [facility] Comment on above: Order Comment: Speci men Type: BLOOD SPECIMENOrdering Facility: [facility] Address: [address] [place] [address] Performed By: #### 5 8410-2 ####[facility]IA [id number] [place] [address] [place] MCH (RBC) [Entitic mass] 25.3 pg Low 26.0-34.0 [facility] Comment on above: Order Comment: Speci men Type: BLOOD SPECIMENOrdering Facility: [facility] Address: [address] [place] [address] Performed By: #### 5 8410-2 ####[facility] [id number] [place] [address] [place] MCHC (RBC) [Mass/Vol] 30.7 g/dL Normal 30.5-36.0 [facility] Comment on above: Order Comment: Speci men Type: BLOOD SPECIMENOrdering Facility: [facility] Address: [address] [place] [address] Performed By: #### 5 8410-2 ####[facility] [id number] [place] [address] [place] MCV (RBC) [Entitic vol] 82.6 fL Normal 80.0-100.0 [facility] Comment on above: Order Comment: Speci men Type: BLOOD SPECIMENOrdering Facility: [facility] Address: [address] [place] [address] Performed By: #### 5 8410-2 ####[facility] [id number] [place] [address] [place] Nucleated RBC (Bld) [#/Vol] 10*3/uL Normal <0.01 [facility] Comment on above: Order Comment: Speci men Type: BLOOD SPECIMENOrdering Facility: [facility] Address: [address] [place] [address] Performed By: #### 5 8410-2 ####[facility] [id number] [place] [address] [place] Platelet mean volume (Bld) [Entitic vol] 10.7 fL Normal 9.0-12.7 [facility] Comment on above: Order Comment: Speci men Type: BLOOD SPECIMENOrdering Facility: [facility] Address: [address] [place] [address] Performed By: #### 5 8410-2 ####[facility] [id number] [place] [address] [place] Platelets (Bld) [#/Vol] 223 10*3/uL Normal 150-400 [facility] Comment on above: Order Comment: Speci men Type: BLOOD SPECIMENOrdering Facility: [facility] Address: [address] [place] [address] Performed By: #### 5 8410-2 ####[facility] [id number] [place] [address] [place] RBC (Bld) [#/Vol] 5.57 10*6/uL High 3.90-5.20 [facility] Comment on above: Order Comment: Speci men Type: BLOOD SPECIMENOrdering Facility: [facility] Address: [address] [place] [address] Performed By: #### 5 8410-2 ####[facility] [id number] [place] [address] [place] WBC (Bld) [#/Vol] 7.06 10*3/uL Normal 3.70-11.00 [facility] Comment on above: Order Comment: Speci men Type: BLOOD SPECIMENOrdering Facility: [facility] Address: [address] [place] [address] Performed By: #### 5 8410-2 ####[facility] [id number] [place] [address] [place] CONSULT PROGon 10-14-2024 CONSULT PROG Normal [facility] Magnesium SerPl-mCncon 10-14 Magnesium [Mass/Vol] 2.2 mg/dL Normal 1.7-2.3 [facility] Comment on above: Order Comment: Speci men Type: BLOOD SPECIMENOrdering Facility: [facility] Address: [address] [place] [address] Performed By: #### 2 4362-6, 77351-4 ####[facility] [id number] [address] [place] QUANT TOX PANELon 10-14-2024 3-Hlhjqaaaqf-9,5-Dimethy l-3,3-Diphenylpyrrolidin e (EDDP) Confirm (U) [Mass/Vol] <25 Normal <25 [facility] Comment on above: Order Comment: Speci men Type: URINE SPECIMENOrdering Facility: [facility] Address: [address] [place] [address] Result Comment: 8-Vtttpyhjtr-6,5-xihxuzyu-4,3-diphenylpyrrolidine (EDDP) is a metabolite of methadone. Performed By: #### U QNTX ####[facility] [id number] [address] 6-Monoacetylmorphine (6-KIRAN) (U) [Mass/Vol] <5 Normal <5 [facility] Comment on above: Order Comment: Speci men Type: URINE SPECIMENOrdering Facility: [facility] Address: [address] [place] [address] Result Comment: 6-Mo noacetylmorphine is a metabolite of heroin. Performed By: #### U QNTX ####[facility] [id number] [address] STATES [facility] Amphetamine Confirm (U) [Mass/Vol] <25 Normal <25 [facility] Comment on above: Order Comment: Speci men Type: URINE SPECIMENOrdering Facility: [facility] Address: [address] [place] [address] Result Comment: Meth ylphenidate does not contain or metabolize to amphetamine. Performed By: #### U QNTX ####[facility] [id number] [address] [place] Performed By: #### U AMP ####[facility] [id number] [place] [address] [place] Benzoylecgonine Confirm (U) [Mass/Vol] <25 Normal <25 [facility] Comment on above: Order Comment: Speci men Type: URINE SPECIMENOrdering Facility: [facility] Address: [address] [place] [address] Result Comment: Terell oylecgonine is a metabolite of cocaine. Performed By: #### U QNTX ####[facility] [id number] [place] [address] [place] Buprenorphine (U) [Mass/Vol] <5 Normal <5 [facility] Comment on above: Order Comment: Speci men Type: URINE SPECIMENOrdering Facility: [facility] Address: [address] [place] [address] Result Comment: Karin ents using transdermal formulations of buprenorphine may yield undetectable buprenorphine and norbuprenorphine urine concentrations. Performed By: #### U QNTX ####[facility] [id number] [place] [address] [place] Carboxy tetrahydrocannabinol (U) [Mass/Vol] 560 ng/mL High <10 [facility] Comment on above: Order Comment: Speci men Type: URINE SPECIMENOrdering Facility: [facility] Address: [address] [place] [address] Result Comment: 11-N vb-9-ofcvbjy-tetrahydrocannabinol (rjhyr-6-ijdcgjx-THC) is a metabolite of kfgpk-5-mwpzuudhqyaexsmlmiym (THC). Presence of crfsx-8-uisinay-THC is consistent with use of a THC-containing drug. This test does not differentiate between delta-8 or delta-9 carboxy-THC. Performed By: #### U QNTX ####[facility] [id number] [place] [address] [place] Codeine Confirm (U) [Mass/Vol] <25 Normal <25 [facility] Comment on above: Order Comment: Speci men Type: URINE SPECIMENOrdering Facility: [facility] Address: [address] [place] [address] Performed By: #### U QNTX ####[facility] [id number] [place] [address] [place] fentaNYL Confirm (U) [Mass/Vol] <1 Normal <1 [facility] Comment on above: Order Comment: Speci men Type: URINE SPECIMENOrdering Facility: [facility] Address: [address] [place] [address] Performed By: #### U QNTX ####[facility] [id number] [place] [address] [place] HYDROcodone Confirm (U) [Mass/Vol] <25 Normal <25 [facility] Comment on above: Order Comment: Speci men Type: URINE SPECIMENOrdering Facility: [facility] Address: [address] [place] [address] Performed By: #### U QNTX ####[facility] [id number] [place] [address] [place] HYDROmorphone Confirm (U) [Mass/Vol] 32 ng/mL High <25 [facility] Comment on above: Order Comment: Speci men Type: URINE SPECIMENOrdering Facility: [facility] Address: [address] [place] [address] Result Comment: Pres ence of hydromorphone is consistent with use of a hydromorphone-containing drug or a drug that metabolizes to hydromorphone. Hydromorphone is a metabolite of hydrocodone and morphine. Performed By: #### U QNTX ####[facility] [id number] [place] [address] [place] MDA, UR <25 Normal <25 [facility] Comment on above: Order Comment: Speci men Type: URINE SPECIMENOrdering Facility: [facility] Address: [address] [place] [address] Result Comment: 3,4 Methylenedioxyamphetamine is also known as MDA. Performed By: #### U QNTX ####[facility] [id number] [address] Performed By: #### U AMP ####[facility] [id number] [address] [place] MDEA, UR <25 Normal <25 [facility] Comment on above: Order Comment: Speci men Type: URINE SPECIMENOrdering Facility: [facility] Address: [address] [place] [address] Result Comment: 3,4 Dmwucyqrplwdyt-J-idvzoerfobysosxq is also known as MDEA. Performed By: #### U QNTX ####[facility] [id number] [address] STATES [facility] Performed By: #### U AMP ####[facility] [id number] [address] [place] MDMA, UR <25 Normal <25 [facility] Comment on above: Order Comment: Speci men Type: URINE SPECIMENOrdering Facility: [facility] Address: [address] [place] [address] Result Comment: 3,4- Methylenedioxymethamphetamine is also known as MDMA. Performed By: #### U QNTX ####[facility] [id number] [address] [place] Performed By: #### U AMP ####[facility] [id number] [place] [address] [place] Methadone Confirm (U) [Mass/Vol] <25 Normal <25 [facility] Comment on above: Order Comment: Speci men Type: URINE SPECIMENOrdering Facility: [facility] Address: [address] [place] [address] Performed By: #### U QNTX ####[facility] [id number] [place] [address] [place] [facility] Methamphetamine Confirm (U) [Mass/Vol] <25 Normal <25 [facility] Comment on above: Order Comment: Speci men Type: URINE SPECIMENOrdering Facility: [facility] Address: [address] [place] [address] Performed By: #### U QNTX ####[facility] [id number] [address] [place] Performed By: #### U AMP ####[facility] [id number] [address] [place] Morphine Confirm (U) [Mass/Vol] 427 ng/mL High <25 [facility] Comment on above: Order Comment: Speci men Type: URINE SPECIMENOrdering Facility: [facility] Address: [address] [place] [address] Result Comment: Pres ence of morphine is consistent with use of a morphine-containing drug or a drug that metabolizes to morphine. Morphine is a metabolite of codeine and 6-monoacetylmorphine (6-KIRAN, heroin metabolite). Morphine is metabolized to hydromorphone. Performed By: #### U QNTX ####[facility] [id number] [address] [place] Norbuprenorphine (U) [Mass/Vol] <10 Normal <10 [facility] Comment on above: Order Comment: Speci men Type: URINE SPECIMENOrdering Facility: [facility] Address: [address] [place] [address] Result Comment: Norb uprenorphine is a metabolite of buprenorphine. Patients using transdermal formulations of buprenorphine may yield undetectable buprenorphine and norbuprenorphine urine concentrations. Performed By: #### U QNTX ####[facility] [id number] [place] [address] [place] Norfentanyl Confirm (U) [Mass/Vol] <1 Normal <1 [facility] Comment on above: Order Comment: Speci men Type: URINE SPECIMENOrdering Facility: [facility] Address: [address] [place] [address] Result Comment: Norf entanyl is a metabolite of fentanyl. Performed By: #### U QNTX ####[facility] [id number] [place] [address] [place] NORHYDROCODONE, UR <25 Normal <25 [facility] Comment on above: Order Comment: Speci men Type: URINE SPECIMENOrdering Facility: [facility] Address: [address] [place] [address] Result Comment: Norh ydrocodone is a metabolite of hydrocodone. Performed By: #### U QNTX ####[facility] [id number] [place] [address] [place] NOROXYCODONE, UR <25 Normal <25 [facility] Comment on above: Order Comment: Speci men Type: URINE SPECIMENOrdering Facility: [facility] Address: [address] [place] [address] Result Comment: Noro xycodone is a metabolite of oxycodone. Performed By: #### U QNTX ####[facility] [id number] [place] [address] [place] NOROXYMORPHONE, UR <25 Normal <25 [facility] Comment on above: Order Comment: Speci men Type: URINE SPECIMENOrdering Facility: [facility] Address: [address] [place] [address] Result Comment: Noro xymorphone is a metabolite of oxymorphone and oxycodone and a minor metabolite of naltrexone and naloxone. Performed By: #### U QNTX ####[facility] [id number] [place] [address] [place] Nortramadol (U) [Mass/Vol] <25 Normal <25 [facility] Comment on above: Order Comment: Speci men Type: URINE SPECIMENOrdering Facility: [facility] Address: [address] [place] [address] Result Comment: O-de smethyltramadol is a metabolite of tramadol. Performed By: #### U QNTX ####[facility] [id number] [place] [address] [place] NOTE, UR TOXICOLOGY PANEL Normal [facility] Comment on above: Order Comment: Speci men Type: URINE SPECIMENOrdering Facility: [facility] Address: [address] [place] [address] Result Comment: For medical purposes only. Not valid for legal or forensic purposes.This test was developed, and its performance characteristics determined by the [facility] Department of Pathology and Laboratory Medicine. It has not been cleared or approved by the FDA. The [facility] Department of Pathology and Laboratory Medicine is regulated under CLIA as qualified to perform high-complexity testing. This test is used for clinical purposes. It should not be regarded as investigational or for research. Performed By: #### U QNTX ####[facility] [id number] [place] [address] [place] oxyCODONE Confirm (U) [Mass/Vol] <25 Normal <25 [facility] Comment on above: Order Comment: Speci men Type: URINE SPECIMENOrdering Facility: [facility] Address: [address] [place] [address] Performed By: #### U QNTX ####[facility] [id number] [place] [address] [place] oxyMORphone Confirm (U) [Mass/Vol] <25 Normal <25 [facility] Comment on above: Order Comment: Speci men Type: URINE SPECIMENOrdering Facility: [facility] Address: [address] [place] [address] Performed By: #### U QNTX ####[facility] [id number] [place] [address] [place] Phencyclidine Confirm (U) [Mass/Vol] <10 Normal <10 [facility] Comment on above: Order Comment: Speci men Type: URINE SPECIMENOrdering Facility: [facility] Address: [address] [place] [address] Result Comment: Phen cyclidine is also known as PCP. Performed By: #### U QNTX ####[facility] [id number] [place] [address] [place] PHENTERMINE, UR <25 Normal <25 [facility] Comment on above: Order Comment: Speci men Type: URINE SPECIMENOrdering Facility: [facility] Address: [address] [place] [address] Performed By: #### U QNTX ####[facility] [id number] [place] [address] [place] Performed By: #### U AMP ####[facility] [id number] [place] [address] [place] traMADol Confirm (U) [Mass/Vol] <25 Normal <25 [facility] Comment on above: Order Comment: Speci men Type: URINE SPECIMENOrdering Facility: [facility] Address: [address] [place] [address] Performed By: #### U QNTX ####[facility] [id number] [place] [address] [place] Renal function 2000 panelon 10-14-2024 Albumin [Mass/Vol] 3.8 g/dL Low 3.9-4.9 [facility] Comment on above: Order Comment: Speci men Type: BLOOD SPECIMENOrdering Facility: [facility] Address: [address] [place], [place] [address] Performed By: #### 2 4362-6, ####[facility] [id number] [place] [address] [place] Anion gap [Moles/Vol] 14 mmol/L Normal 8-15 [facility] Comment on above: Order Comment: Speci men Type: BLOOD SPECIMENOrdering Facility: [facility] Address: [address] [place] [address] Performed By: #### 2 4362-6, ####[facility] [id number] [place] [address] [place] Calcium [Mass/Vol] 9.5 mg/dL Normal 8.5-10.2 [facility] Comment on above: Order Comment: Speci men Type: BLOOD SPECIMENOrdering Facility: [facility] Address: [address] [place] [address] Performed By: #### 2 436-6, ####[facility] [id number] [place] [address] [place] Chloride [Moles/Vol] 97 mmol/L Low 98-107 [facility] Comment on above: Order Comment: Speci men Type: BLOOD SPECIMENOrdering Facility: [facility] Address: [address] [place], [place] [address] Performed By: #### 2 436-6, ####[facility] [id number] [place] [id number] [place] CO2 [Moles/Vol] 27 mmol/L Normal 22-30 [facility] Comment on above: Order Comment: Speci men Type: BLOOD SPECIMENOrdering Facility: [facility] Address: [address] [place], [place] [address] Performed By: #### 2 4362-6, ####[facility] [id number] [place] [address] [place] Creatinine [Mass/Vol] 0.67 mg/dL Normal 0.58-0.96 [facility] Comment on above: Order Comment: Alex mcgovern Type: BLOOD SPECIMENOrdering Facility: [facility] Address: [address] [place] [address] Performed By: #### 2 4362-6, ####[facility] [id number] [place] [address] [place] Creatinine and Glomerular filtration rate.predicted panel (S/P/Bld) 125 mL/min/1.73m??? Normal >=60 [facility] Comment on above: Order Comment: Alex mcgovern Type: BLOOD SPECIMENOrdering Facility: [facility] Address: [address] [place] [address] Result Comment: Cinthya mated Glomerular Filtration Rate (eGFR) is calculated using the 2020 CKD-EPI creatinine equation. This equation utilizes serum creatinine, sex, and age as parameters. The creatinine assay has traceable calibration to isotope dilution-mass spectrometry. Refer to KDIGO guidelines for clinical interpretation. In patients with unstable renal function, e.g. those with acute kidney injury, the eGFR may not accurately reflect actual GFR. Performed By: #### 2 4362-6, ####[facility] [id number] [place] [address] [place] Glucose [Mass/Vol] 91 mg/dL Normal 74-99 [facility] Comment on above: Order Comment: Alex mcgovern Type: BLOOD SPECIMENOrdering Facility: [facility] Address: [address] [place] [address] Result Comment: The [place] Diabetes [employer] (ADA) provides guidance for cutoff values for fasting glucose and random glucose. The ADA defines fasting as no caloric intake for at least 8 hours. Fasting plasma glucose results between 100 to 125 mg/dL indicate increased risk for diabetes (prediabetes).Fasting plasma glucose results greater than or equal to 126 mg/dL meet the criteria for diagnosis of diabetes. In the absence of unequivocal hyperglycemia, results should be confirmed by repeat testing. In a patient with classic symptoms of hyperglycemia or hyperglycemic crisis, random plasma glucose results greater than or equal to 200 mg/dL meet the criteria for diagnosis of diabetes.Reference: Standards of Medical Care in Diabetes 2016, [place] [employer]. Diabetes Care. 2016.39(Suppl 1). Performed By: #### 2 4362-6, ####[facility] [id number] [place] [address] [place] Phosphate [Mass/Vol] 3.4 mg/dL Normal 2.7-4.8 [facility] Comment on above: Order Comment: Speci men Type: BLOOD SPECIMENOrdering Facility: [facility] Address: [address] [place] [address] Performed By: #### 2 436-6, ####[facility] [id number] [place] [address] [place] Potassium [Moles/Vol] 3.9 mmol/L Normal 3.7-5.1 [facility] Comment on above: Order Comment: Speci men Type: BLOOD SPECIMENOrdering Facility: [facility] Address: [address] [place] [address] Performed By: #### 2 43610-13, ####[facility] [id number] [place] [address] [place] Sodium [Moles/Vol] 138 mmol/L Normal 136-144 [facility] Comment on above: Order Comment: Speci men Type: BLOOD SPECIMENOrdering Facility: [facility] Address: [address] [place] [address] Performed By: #### 2 4362, ####[facility] [id number] [address] [address] [place] Urea nitrogen [Mass/Vol] 8 mg/dL Normal 7-21 [facility] Comment on above: Order Comment: Speci men Type: BLOOD SPECIMENOrdering Facility: [facility] Address: [address] [place] [address] Performed By: #### 2 4362-6, 63714-5 ####[facility] [id number] [place] [address] [place] SOCIAL WORKon 10-14-2024 SOCIAL WORK Normal [facility] SPECIMEN VALIDITY, URINEon 0 10-14-2024 CREATININE,URINE 76.9 mg/dL Normal 20.0-300.0 [facility] Comment on above: Order Comment: Speci men Type: URINE SPECIMENOrdering Facility: [facility] Address: [address] [place] [address] Performed By: #### L [id number] ####[facility] [id number] [place] [address] [place] NITRITES,URINE <50 Normal <500 [facility] Comment on above: Order Comment: Speci men Type: URINE SPECIMENOrdering Facility: [facility] Address: [address] [place] [address] Performed By: #### L [id number] ####[facility] [id number] [place] [address] [place] OXIDANTS,URINE <38 Normal <200 [facility] Comment on above: Order Comment: Speci men Type: URINE SPECIMENOrdering Facility: [facility] Address: [address] [place] [address] Performed By: #### L [id number] ####[facility] [id number] [place] [id number] [place] pH (U) 8.2 [pH] High 4.5-8.0 [facility] Comment on above: Order Comment: Speci men Type: URINE SPECIMENOrdering Facility: [facility] Address: [address] [place] [address] Performed By: #### L [id number] ####[facility] [id number] [place] [address] [place] SPEC GRAVITY,UR 1.005 Normal 1.003-1.03 5 [facility] Comment on above: Order Comment: Speci men Type: URINE SPECIMENOrdering Facility: [facility] Address: [address] [place] [address] Performed By: #### L [id number] ####[facility] [id number] [place] [address] [place] SPECIMEN VALIDITY QUALITY Specimen quality results within acceptable limits Normal [facility] Comment on above: Order Comment: Speci men Type: URINE SPECIMENOrdering Facility: [facility] Address: [address] [place] [address] Performed By: #### L [id number] ####[facility] [id number] [place] [address] [place] ALLIED HEALTHon 10-13-2024 ALLIED HEALTH Normal [facility] CASE MANAGEMon 10-13-2024 CASE MANAGEM Normal [facility] CBC panel Auto (Bld)on 10-13 Erythrocyte distribution width (RBC) [Ratio] 15.0 % Normal 11.5-15.0 [facility] Comment on above: Order Comment: Speci men Type: BLOOD SPECIMENOrdering Facility: [facility] Address: [address] [place] [address] Performed By: #### 5 8410-2 ####[facility] [id number] [address] [place] Hematocrit (Bld) [Volume fraction] 44.2 % Normal 36.0-46.0 [facility] Comment on above: Order Comment: Speci men Type: BLOOD SPECIMENOrdering Facility: [facility] Address: [address] [place] [address] Performed By: #### 5 8410-2 ####[facility] [id number] [place] [address] [place] Hemoglobin (Bld) [Mass/Vol] 13.9 g/dL Normal 11.5-15.5 [facility] Comment on above: Order Comment: Speci men Type: BLOOD SPECIMENOrdering Facility: [facility] Address: [address] [place] [address] Performed By: #### 5 8410-2 ####[facility] [id number] [place] [address] [place] MCH (RBC) [Entitic mass] 25.1 pg Low 26.0-34.0 [facility] Comment on above: Order Comment: Speci men Type: BLOOD SPECIMENOrdering Facility: [facility] Address: [address] [place] [address] Performed By: #### 5 8410-2 ####[facility] [id number] [place] [address] [place] MCHC (RBC) [Mass/Vol] 31.4 g/dL Normal 30.5-36.0 [facility] Comment on above: Order Comment: Speci men Type: BLOOD SPECIMENOrdering Facility: [facility] Address: [address] [place] [address] Performed By: #### 5 8410-2 ####[facility] [id number] [place] [address] [place] MCV (RBC) [Entitic vol] 79.8 fL Low 80.0-100.0 [facility] Comment on above: Order Comment: Speci men Type: BLOOD SPECIMENOrdering Facility: [facility] Address: [address] [place] [address] Performed By: #### 5 8410-2 ####[facility] [id number] [place] [address] [place] Nucleated RBC (Bld) [#/Vol] 10*3/uL Normal <0.01 [facility] Comment on above: Order Comment: Speci men Type: BLOOD SPECIMENOrdering Facility: [facility] Address: [address] [place] [address] Performed By: #### 5 8410-2 ####[facility] [id number] [place] [address] [place] Platelet mean volume (Bld) [Entitic vol] 10.0 fL Normal 9.0-12.7 [facility] Comment on above: Order Comment: Speci men Type: BLOOD SPECIMENOrdering Facility: [facility] Address: [address] [place] [address] Performed By: #### 5 8410-2 ####[facility] [id number] [place] [address] [place] Platelets (Bld) [#/Vol] 220 10*3/uL Normal 150-400 [facility] Comment on above: Order Comment: Speci men Type: BLOOD SPECIMENOrdering Facility: [facility] Address: [address] [place] [address] Performed By: #### 5 8410-2 ####[facility] LABIA [id number] [place] [address] [place] RBC (Bld) [#/Vol] 5.54 10*6/uL High 3.90-5.20 [facility] Comment on above: Order Comment: Speci men Type: BLOOD SPECIMENOrdering Facility: [facility] Address: [address] [place] [address] Performed By: #### 5 8410-2 ####[facility] [id number] [place] [address] [place] WBC (Bld) [#/Vol] 5.36 10*3/uL Normal 3.70-11.00 [facility] Comment on above: Order Comment: Speci men Type: BLOOD SPECIMENOrdering Facility: [facility] Address: [address] [place] [address] Performed By: #### 5 8410-2 ####[facility] LABCLIA [id number] [place] [address] [place] CONSULTon 10-13-2024 CONSULT Normal [facility] CONSULT Normal [facility] Magnesium SerPl-mCncon 10-13 Magnesium [Mass/Vol] 2.2 mg/dL Normal 1.7-2.3 [facility] Comment on above: Order Comment: Speci men Type: BLOOD SPECIMENOrdering Facility: [facility] Address: [address] [place] [address] Performed By: #### 1 9123-9, 44184-6 ####[facility] LABCLIA [id number] [place] [address] [place] Renal function 2000 panelon 10-13-2024 Albumin [Mass/Vol] 3.8 g/dL Low 3.9-4.9 [facility] Comment on above: Order Comment: Speci men Type: BLOOD SPECIMENOrdering Facility: [facility] Address: [address] [place] [address] Performed By: #### 1 9123-9, 49709-3 ####[facility] LABCLIA [id number] [place] [address] [place] Anion gap [Moles/Vol] 13 mmol/L Normal 8-15 [facility] Comment on above: Order Comment: Speci men Type: BLOOD SPECIMENOrdering Facility: [facility] Address: [address] [place] [address] Performed By: #### 1 9123-9, 20755-0 ####[facility] LABCLIA [id number] [place] [address] [place] Calcium [Mass/Vol] 9.1 mg/dL Normal 8.5-10.2 [facility] Comment on above: Order Comment: Speci men Type: BLOOD SPECIMENOrdering Facility: [facility] Address: [address] [place] [address] Performed By: #### 1 9123-9, 86259-6 ####[facility] LABCLIA [id number] [place] [address] [place] Chloride [Moles/Vol] 95 mmol/L Low 98-107 [facility] Comment on above: Order Comment: Speci men Type: BLOOD SPECIMENOrdering Facility: [facility] Address: [address] [place] [address] Performed By: #### 1 9123-9, 36764-2 ####[facility] LABCLIA [id number] [place] [address] [place] CO2 [Moles/Vol] 29 mmol/L Normal 22-30 [facility] Comment on above: Order Comment: Speci men Type: BLOOD SPECIMENOrdering Facility: [facility] Address: [address] [place] [address] Performed By: #### 1 9123-9, 72930-5 ####[facility] LABCLIA [id number] [place] [address] [place] Creatinine [Mass/Vol] 0.56 mg/dL Low 0.58-0.96 [facility] Comment on above: Order Comment: Speci men Type: BLOOD SPECIMENOrdering Facility: [facility] Address: [address] [place] [address] Performed By: #### 1 9123-9, 63425-6 ####[facility] LABCLIA [id number] [place] [address] [place] Creatinine and Glomerular filtration rate.predicted panel (S/P/Bld) 131 mL/min/1.73m??? Normal >=60 [facility] Comment on above: Order Comment: Speci men Type: BLOOD SPECIMENOrdering Facility: [facility] Address: [address] [place] [address] Result Comment: Cinthya mated Glomerular Filtration Rate (eGFR) is calculated using the 2020 CKD-EPI creatinine equation. This equation utilizes serum creatinine, sex, and age as parameters. The creatinine assay has traceable calibration to isotope dilution-mass spectrometry. Refer to KDIGO guidelines for clinical interpretation. In patients with unstable renal function, e.g. those with acute kidney injury, the eGFR may not accurately reflect actual GFR. Performed By: #### 1 9123-9, 30958-6 ####[facility] [id number] [place] [address] [place] Glucose [Mass/Vol] 116 mg/dL High 74-99 [facility] Comment on above: Order Comment: Speci men Type: BLOOD SPECIMENOrdering Facility: [facility] Address: [address] [place] [address] Result Comment: The [place] Diabetes [employer] (ADA) provides guidance for cutoff values for fasting glucose and random glucose. The ADA defines fasting as no caloric intake for at least 8 hours. Fasting plasma glucose results between 100 to 125 mg/dL indicate increased risk for diabetes (prediabetes).Fasting plasma glucose results greater than or equal to 126 mg/dL meet the criteria for diagnosis of diabetes. In the absence of unequivocal hyperglycemia, results should be confirmed by repeat testing. In a patient with classic symptoms of hyperglycemia or hyperglycemic crisis, random plasma glucose results greater than or equal to 200 mg/dL meet the criteria for diagnosis of diabetes.Reference: Standards of Medical Care in Diabetes 2016, [place] [employer]. Diabetes Care. 2016.39(Suppl 1). Performed By: #### 1 9123-9, 02832-6 ####[facility] [id number] [place] [address] [place] Phosphate [Mass/Vol] 3.3 mg/dL Normal 2.7-4.8 [facility] Comment on above: Order Comment: Speci men Type: BLOOD SPECIMENOrdering Facility: [facility] Address: [address] [place] [address] Performed By: #### 1 9123-9, 89477-9 ####[facility] [id number] [place] [address] [place] Potassium [Moles/Vol] 3.6 mmol/L Low 3.7-5.1 [facility] Comment on above: Order Comment: Speci men Type: BLOOD SPECIMENOrdering Facility: [facility] Address: [address] [place] [address] Performed By: #### 1 9123-9, 08368-3 ####[facility] LABCLIA [id number] [place] [address] [place] Sodium [Moles/Vol] 137 mmol/L Normal 136-144 [facility] Comment on above: Order Comment: Speci men Type: BLOOD SPECIMENOrdering Facility: [facility] Address: [address] [place] [address] Performed By: #### 1 9123-9, 72703-4 ####[facility] LABCLIA [id number] [place] [address] [place] Urea nitrogen [Mass/Vol] 8 mg/dL Normal 7-21 [facility] Comment on above: Order Comment: Speci men Type: BLOOD SPECIMENOrdering Facility: [facility] Address: [address] [place] [address] Performed By: #### 1 9123-9, 25278-0 ####[facility] LABCLIA [id number] [place] [address] [place] XR ABDOMEN 1V SUPINEon 10-13 XR ABDOMEN 1V SUPINE Normal [facility] ALLIED HEALTHon 10-12-2024 ALLIED HEALTH Normal [facility] CBC panel Auto (Bld)on 10-12 Erythrocyte distribution width (RBC) [Ratio] 15.6 % High 11.5-15.0 [facility] Comment on above: Order Comment: Speci men Type: BLOOD SPECIMENOrdering Facility: [facility] Address: [address] [place] [address] Performed By: #### 5 8410-2 ####[facility] LABCLIA [id number] [place] [address] [place] Hematocrit (Bld) [Volume fraction] 43.5 % Normal 36.0-46.0 [facility] Comment on above: Order Comment: Speci men Type: BLOOD SPECIMENOrdering Facility: [facility] Address: [address] [place] [address] Performed By: #### 5 8410-2 ####[facility] [id number] [place] [address] [place] Hemoglobin (Bld) [Mass/Vol] 13.6 g/dL Normal 11.5-15.5 [facility] Comment on above: Order Comment: Speci men Type: BLOOD SPECIMENOrdering Facility: [facility] Address: [address] [place] [address] Performed By: #### 5 8410-2 ####[facility] [id number] [place] [address] [place] MCH (RBC) [Entitic mass] 25.1 pg Low 26.0-34.0 [facility] Comment on above: Order Comment: Speci men Type: BLOOD SPECIMENOrdering Facility: [facility] Address: [address] [place] [address] Performed By: #### 5 8410-2 ####[facility] [id number] [place] [address] [place] MCHC (RBC) [Mass/Vol] 31.3 g/dL Normal 30.5-36.0 [facility] Comment on above: Order Comment: Speci men Type: BLOOD SPECIMENOrdering Facility: [facility] Address: [address] [place] [address] Performed By: #### 5 8410-2 ####[facility] [id number] [place] [address] [place] MCV (RBC) [Entitic vol] 80.4 fL Normal 80.0-100.0 [facility] Comment on above: Order Comment: Speci men Type: BLOOD SPECIMENOrdering Facility: [facility] Address: [address] [place] [address] Performed By: #### 5 8410-2 ####[facility] [id number] [place] [address] [place] Nucleated RBC (Bld) [#/Vol] 10*3/uL Normal <0.01 [facility] Comment on above: Order Comment: Speci men Type: BLOOD SPECIMENOrdering Facility: [facility] Address: [address] [place] [address] Performed By: #### 5 8410-2 ####[facility] [id number] [place] [address] [place] Platelet mean volume (Bld) [Entitic vol] 10.2 fL Normal 9.0-12.7 [facility] Comment on above: Order Comment: Speci men Type: BLOOD SPECIMENOrdering Facility: [facility] Address: [address] [place] [address] Performed By: #### 5 8410-2 ####[facility] [id number] [place] [address] [place] Platelets (Bld) [#/Vol] 200 10*3/uL Normal 150-400 [facility] Comment on above: Order Comment: Speci men Type: BLOOD SPECIMENOrdering Facility: [facility] Address: [address] [place] [address] Performed By: #### 5 8410-2 ####[facility] [id number] [place] [address] [place] RBC (Bld) [#/Vol] 5.41 10*6/uL High 3.90-5.20 [facility] Comment on above: Order Comment: Speci men Type: BLOOD SPECIMENOrdering Facility: [facility] Address: [address] [place] [address] Performed By: #### 5 8410-2 ####[facility] LABCLIA [id number] [place] [address] [place] WBC (Bld) [#/Vol] 3.56 10*3/uL Low 3.70-11.00 [facility] Comment on above: Order Comment: Speci men Type: BLOOD SPECIMENOrdering Facility: [facility] Address: [address] [place] [address] Performed By: #### 5 8410-2 ####[facility] LABCLIA [id number] [place] [address] [place] Magnesium SerPl-mCncon 10-12 Magnesium [Mass/Vol] 2.4 mg/dL High 1.7-2.3 [facility] Comment on above: Order Comment: Speci men Type: BLOOD SPECIMENOrdering Facility: [facility] Address: [address] [place] [address] Performed By: #### 1 9123-9, 36660-8 ####[facility] [id number] [place] [address] [place] NUTRITIONon 10-12-2024 NUTRITION Normal [facility] PHOSPHATIDYLETHANOL (PETH)on 10-12-2024 EER PETH See Note Normal [facility] Comment on above: Order Comment: Speci men Type: BLOOD SPECIMENOrdering Facility: [facility] Address: [address] [place] [address] Result Comment: Auth orized individuals can access the [employer] Enhanced Reportwith an [employer] Connect account using the following link.Your local lab can assist you in obtaining the patientreport if you don't have a Connect account.[email or web address] Performed By: #### P ETH ####[facility] LABORATORIESCLIA [id number] [place] [address] PETH 16:0/18.2 (PLPETH) <10 Normal [facility] Comment on above: Order Comment: Speci men Type: BLOOD SPECIMENOrdering Facility: [facility] Address: [address] [place] [address] Result Comment: Refe rence ranges are not well established. Performed By: #### P ETH ####[facility] [id number] [place] [id number] PETH 16:0/18:1 (POPETH) <10 Normal [facility] Comment on above: Order Comment: Speci men Type: BLOOD SPECIMENOrdering Facility: [facility] Address: [address] [place] [address] Result Comment: PEth 16:0/18:1 (POPEth)Less than 10 ng/mL............Not detectedLess than 20 ng/mL............Abstinence or light - 200 ng/mL................Moderate alcohol consumptionGreater than 200 ng/mL........Heavy alcohol consumption or chronicalcohol use(Reference: Linn Rosenberg and Tiffany Rogers 2018 J. Forensic Sci) Performed By: #### P ETH ####[facility]IESCLIA [id number] [place] [address] PETH INTERPRETATION See Comment [facility] Comment on above: Order Comment: Speci men Type: BLOOD SPECIMENOrdering Facility: [facility] Address: [address] [place] [address] Result Comment: Phos phatidylethanol (PEth) is a group of phospholipids formed inthe presence of ethanol, phospholipase D and phosphatidylcholine.PEth is known to be a direct alcohol biomarker. The predominantPEth homologues are PEth 16:0/18:1 (POPEth) and PEth 16:0/18:2(PLPEth), which account for 37-46% and 26-28% of the total PEthhomologues, respectively. PEth is incorporated into thephospholipid membrane of red blood cells and has a generalhalf-life of 4-10 days and a window of detection of 2-4 weeks.However, the window of detection is longer in individuals whochronically or excessively consume alcohol. The limit ofquantification is 10 ng/mL. Serial monitoring of PEth may behelpful in monitoring alcohol abstinence over time. PEth resultsshould be interpreted in the context of the patient's clinical andbehavioral history.Patients with advanced liver disease may have falsely elevatedPEth concentrations (Liat MONROY et al 2018, Alcoholism Clinical &Experimental Research).This test was developed and its performance characteristicsdetermined by [email or web address]. It has not been cleared orapproved by the U.S. Food and Drug Administration. This test wasperformed in a CLIA-certified laboratory and is intended forclinical purposes.Performed By: [email or web address] [place] [id number] Director: Rolando Butler MD, PhDCLIA Number: [id number] Performed By: #### P ETH ####[facility] [id number] [place] [address] Renal function 2000 panelon 10-12-2024 Albumin [Mass/Vol] 4.0 g/dL Normal 3.9-4.9 [facility] Comment on above: Order Comment: Speci men Type: BLOOD SPECIMENOrdering Facility: [facility] Address: [address] [place] [address] Performed By: #### 1 9123-9, 67450-7 ####[facility] LABCLIA [id number] [place] [address] [place] Anion gap [Moles/Vol] 19 mmol/L High 8-15 [facility] Comment on above: Order Comment: Speci men Type: BLOOD SPECIMENOrdering Facility: [facility] Address: [address] [place] [address] Performed By: #### 1 9123-9, 39705-2 ####[facility] LABCLIA [id number] [place] [address] [place] Calcium [Mass/Vol] 9.3 mg/dL Normal 8.5-10.2 [facility] Comment on above: Order Comment: Speci men Type: BLOOD SPECIMENOrdering Facility: [facility] Address: [address] [place] [address] Performed By: #### 1 9123-9, 47528-3 ####[facility] LABCLIA [id number] [facility] [place] [address] [place] Chloride [Moles/Vol] 94 mmol/L Low 98-107 [facility] Comment on above: Order Comment: Speci men Type: BLOOD SPECIMENOrdering Facility: [facility] Address: [address] [place] [address] Performed By: #### 1 9123-9, 44384-8 ####[facility] LABCLIA [id number] [place] [address] [place] CO2 [Moles/Vol] 23 mmol/L Normal 22-30 [facility] Comment on above: Order Comment: Speci men Type: BLOOD SPECIMENOrdering Facility: [facility] Address: [address] [place] [address] Performed By: #### 1 9123-9, 39655-3 ####[facility] LABCLIA [id number] [place] [address] [place] Creatinine [Mass/Vol] 0.54 mg/dL Low 0.58-0.96 [facility] Comment on above: Order Comment: Speci men Type: BLOOD SPECIMENOrdering Facility: [facility] Address: [address] [place] [address] Performed By: #### 1 9123-9, 75630-8 ####[facility] LABCLIA [id number] [place] [address] [place] Creatinine and Glomerular filtration rate.predicted panel (S/P/Bld) 132 mL/min/1.73m??? Normal >=60 [facility] Comment on above: Order Comment: Speci men Type: BLOOD SPECIMENOrdering Facility: [facility] Address: [address] [place] [address] Result Comment: Cinthya mated Glomerular Filtration Rate (eGFR) is calculated using the 2020 CKD-EPI creatinine equation. This equation utilizes serum creatinine, sex, and age as parameters. The creatinine assay has traceable calibration to isotope dilution-mass spectrometry. Refer to KDIGO guidelines for clinical interpretation. In patients with unstable renal function, e.g. those with acute kidney injury, the eGFR may not accurately reflect actual GFR. Performed By: #### 1 9123-9, 99817-5 ####[facility] [id number] [place] [address] [place] Glucose [Mass/Vol] 84 mg/dL Normal 74-99 [facility] Comment on above: Order Comment: Alex mcgovern Type: BLOOD SPECIMENOrdering Facility: [facility] Address: [address] [place] [address] Result Comment: The [place] Diabetes Association (ADA) provides guidance for cutoff values for fasting glucose and random glucose. The ADA defines fasting as no caloric intake for at least 8 hours. Fasting plasma glucose results between 100 to 125 mg/dL indicate increased risk for diabetes (prediabetes).Fasting plasma glucose results greater than or equal to 126 mg/dL meet the criteria for diagnosis of diabetes. In the absence of unequivocal hyperglycemia, results should be confirmed by repeat testing. In a patient with classic symptoms of hyperglycemia or hyperglycemic crisis, random plasma glucose results greater than or equal to 200 mg/dL meet the criteria for diagnosis of diabetes.Reference: Standards of Medical Care in Diabetes 2016, [place] [employer]. Diabetes Care. 2016.39(Suppl 1). Performed By: #### 1 9123-9, 51609-1 ####[facility] [id number] [place] [id number] [place] Phosphate [Mass/Vol] 4.1 mg/dL Normal 2.7-4.8 [facility] Comment on above: Order Comment: Alex mcgovern Type: BLOOD SPECIMENOrdering Facility: [facility] Address: [address] [place] [address] Performed By: #### 1 9123-9, 53846-6 ####[facility] LABCLIA [id number] [place] [address] [place] Potassium [Moles/Vol] 3.9 mmol/L Normal 3.7-5.1 [facility] Comment on above: Order Comment: Speci men Type: BLOOD SPECIMENOrdering Facility: [facility] Address: [address] [place] [address] Performed By: #### 1 9123-9, 01890-4 ####[facility] LABCLIA [id number] [place] [address] [place] Sodium [Moles/Vol] 136 mmol/L Normal 136-144 [facility] Comment on above: Order Comment: Speci men Type: BLOOD SPECIMENOrdering Facility: [facility] Address: [address] [place] [address] Performed By: #### 1 9123-9, 26902-6 ####[facility] [id number] [place] [address] [place] Urea nitrogen [Mass/Vol] 5 mg/dL Low 7-21 [facility] Comment on above: Order Comment: Speci men Type: BLOOD SPECIMENOrdering Facility: [facility] Address: [address] [place] [address] Performed By: #### 1 9123-9, 08408-9 ####[facility] LABCLIA [id number] [place] [id number] [place] TOXICOLOGY SCREEN, ROUTINE U RINEon 10-12-2024 Amphetamines Confirm (U) [Mass/Vol] Positive Abnormal Negative [facility] Comment on above: Order Comment: Speci men Type: URINE SPECIMENOrdering Facility: [facility] Address: [address] [place] [address] Result Comment: Cuto ff threshold at 1000 ng/mL. Performed By: #### U TOX2 ####[facility] LABCLIA [id number] [place] [address] [place] BARBITURATES, URINE Negative Normal Negative [facility] Comment on above: Order Comment: Speci men Type: URINE SPECIMENOrdering Facility: [facility] Address: [address] [place] [address] Result Comment: Cuto ff threshold at 200 ng/mL. Performed By: #### U TOX2 ####[facility] LABCLIA [id number] [place] [address] [place] BENZODIAZEPINES, UR Positive Abnormal Negative [facility] Comment on above: Order Comment: Speci men Type: URINE SPECIMENOrdering Facility: [facility] Address: [address] [place] [address] Result Comment: Cuto ff threshold at 200 ng/mL. Performed By: #### U TOX2 ####[facility] [id number] [place] [address] [place] Cannabinoids Screen Ql (U) Positive Abnormal Negative [facility] Comment on above: Order Comment: Speci men Type: URINE SPECIMENOrdering Facility: [facility] Address: [address] [place] [address] Result Comment: Cuto ff threshold at 50 ng/mL. Performed By: #### U TOX2 ####[facility] [id number] [place] [address] [place] Cocaine Ql (U) Negative Normal Negative [facility] Comment on above: Order Comment: Speci men Type: URINE SPECIMENOrdering Facility: [facility] Address: [address] [place] [address] Result Comment: Cuto ff threshold at 300 ng/mL. Performed By: #### U TOX2 ####[facility] LABCLIA [id number] [place] [address] [place] Ethanol (U) [Mass/Vol] <11 Normal <11 [facility] Comment on above: Order Comment: Speci men Type: URINE SPECIMENOrdering Facility: [facility] Address: [address] [place] [address] Performed By: #### U TOX2 ####[facility] [id number] [place] [address] [place] Opiates Screen Ql (U) Positive Abnormal Negative [facility] Comment on above: Order Comment: Speci men Type: URINE SPECIMENOrdering Facility: [facility] Address: [address] [place] [address] Result Comment: Cuto ff threshold at 300 ng/mL. Performed By: #### U TOX2 ####[facility] [id number] [place] [address] [place] oxyCODONE cutoff Screen (U) [Mass/Vol] Negative Normal Negative [facility] Comment on above: Order Comment: Speci men Type: URINE SPECIMENOrdering Facility: [facility] Address: [address] [place] [address] Result Comment: Cuto ff threshold at 100 ng/mL. Performed By: #### U TOX2 ####[facility] [id number] [place] [address] [place] Phencyclidine Ql (U) Negative Normal Negative [facility] Comment on above: Order Comment: Speci men Type: URINE SPECIMENOrdering Facility: [facility] Address: [address] [place] [address] Result Comment: Cuto ff threshold at 25 ng/mL. Performed By: #### U TOX2 ####[facility] [id number] [place] [address] [place] URINALYSIS, REFLEX MICROSCOP ICon 10-12-2024 Bacteria LM.HPF (Urine sed) [#/Area] Negative Normal Negative [facility] Comment on above: Order Comment: Speci men Type: URINE SPECIMENOrdering Facility: [facility] Address: [address] [place] [address] Performed By: #### L [id number] ####[facility] [id number] [place] [address] [place] Bilirubin Ql (U) Negative Normal Negative [facility] Comment on above: Order Comment: Speci men Type: URINE SPECIMENOrdering Facility: [facility] Address: [address] [place] [address] Performed By: #### L [id number] ####[facility] [id number] [place] [address] [place] Clarity (Unsp spec) Clear Normal Clear [facility] Comment on above: Order Comment: Speci men Type: URINE SPECIMENOrdering Facility: [facility] Address: [address] [place] [address] Performed By: #### L [id number] ####[facility] [id number] [place] [address] [place] [facility] Color (U) Yellow Normal Yellow [facility] Comment on above: Order Comment: Speci men Type: URINE SPECIMENOrdering Facility: [facility] Address: [address] [place] [address] Performed By: #### L [id number] ####[facility] [id number] [place] [address] [place] Epithelial cells LM.HPF (Urine sed) [#/Area] Few Normal [facility] Comment on above: Order Comment: Speci men Type: URINE SPECIMENOrdering Facility: [facility] Address: [address] [place] [address] Performed By: #### L [id number] ####[facility] [id number] [place] [address] [place] Glucose Test strip (U) [Mass/Vol] Negative Normal Negative [facility] Comment on above: Order Comment: Speci men Type: URINE SPECIMENOrdering Facility: [facility] Address: [address] [place] [address] Performed By: #### L [id number] ####[facility] [id number] [place] [address] [place] Hemoglobin Ql (U) Negative Normal Negative [facility] Comment on above: Order Comment: Speci men Type: URINE SPECIMENOrdering Facility: [facility] Address: [address] [place] [address] Performed By: #### L [id number] ####[facility] [id number] [place] [address] [place] Hyaline casts (Urine sed) [#/Area] 0 /[LPF] Normal 0 /LPF [facility] Comment on above: Order Comment: Speci men Type: URINE SPECIMENOrdering Facility: [facility] Address: [address] [place] [address] Performed By: #### L [id number] ####[facility] [id number] [place] [address] [place] Ketones Ql (U) 3+ Abnormal Negative [facility] Comment on above: Order Comment: Speci men Type: URINE SPECIMENOrdering Facility: [facility] Address: [address] [place] [address] Performed By: #### L [id number] ####[facility] [id number] [place] [address] [place] Leukocyte esterase Test strip Ql (U) Negative Normal Negative [facility] Comment on above: Order Comment: Speci men Type: URINE SPECIMENOrdering Facility: [facility] Address: [address] [place] [address] Performed By: #### L [id number] ####[facility] [id number] [place] [address] [place] Nitrite Ql (U) Negative Normal Negative [facility] Comment on above: Order Comment: Speci men Type: URINE SPECIMENOrdering Facility: [facility] Address: [address] [place] [address] Performed By: #### L [id number] ####[facility] [id number] [place] [address] [place] pH (U) 6.5 [pH] Normal <8.5 [facility] Comment on above: Order Comment: Speci men Type: URINE SPECIMENOrdering Facility: [facility] Address: [address] [place] [address] Performed By: #### L [id number] ####[facility] [id number] [place] [address] [place] Protein (U) [Mass/Vol] Trace Abnormal Negative [facility] Comment on above: Order Comment: Speci men Type: URINE SPECIMENOrdering Facility: [facility] Address: [address] [place] [address] Performed By: #### L [id number] ####[facility] [id number] [place] [address] [place] RBC LM.HPF (Urine sed) [#/Area] 0-2 /HPF Normal 0-2 /HPF [facility] Comment on above: Order Comment: Speci men Type: URINE SPECIMENOrdering Facility: [facility] Address: [address] [place] [address] Performed By: #### L [id number] ####[facility] [id number] [place] [address] [place] Specific gravity (U) [Rel density] 1.016 Normal 1.005-1.03 0 [facility] Comment on above: Order Comment: Speci men Type: URINE SPECIMENOrdering Facility: [facility] Address: [address] [place] [address] Performed By: #### L [id number] ####[facility] [id number] [place] [address] [place] Urobilinogen Ql (U) 1.0 EU/dL Normal 0.2-1.0 EU/dL [facility] Comment on above: Order Comment: Speci men Type: URINE SPECIMENOrdering Facility: [facility] Address: [address] [place] [address] Performed By: #### L [id number] ####[facility] [id number] [place] [address] [place] WBC LM.HPF (Urine sed) [#/Area] 0-5 /HPF Normal 0-5 /HPF [facility] Comment on above: Order Comment: Speci men Type: URINE SPECIMENOrdering Facility: [facility] Address: [address] [place] [address] Performed By: #### L [id number] ####[facility] [id number] [place] [address] [place] CBC panel Auto (Bld)on 10-11 Erythrocyte distribution width (RBC) [Ratio] 15.5 % High 11.5-15.0 [facility] Comment on above: Order Comment: Speci men Type: BLOOD SPECIMENOrdering Facility: [facility] Address: [address] [place] [address] Performed By: #### 5 8410-2 ####[facility] [id number] [place] [address] [place] Hematocrit (Bld) [Volume fraction] 42.7 % Normal 36.0-46.0 [facility] Comment on above: Order Comment: Speci men Type: BLOOD SPECIMENOrdering Facility: [facility] Address: [address] [place] [address] Performed By: #### 5 8410-2 ####[facility] [id number] [place] [address] [place] Hemoglobin (Bld) [Mass/Vol] 13.3 g/dL Normal 11.5-15.5 [facility] Comment on above: Order Comment: Speci men Type: BLOOD SPECIMENOrdering Facility: [facility] Address: [address] [place] [address] Performed By: #### 5 8410-2 ####[facility] [id number] [place] [address] [place] MCH (RBC) [Entitic mass] 25.2 pg Low 26.0-34.0 [facility] Comment on above: Order Comment: Speci men Type: BLOOD SPECIMENOrdering Facility: [facility] Address: [address] [place] [address] Performed By: #### 5 8410-2 ####[facility] [id number] [place] [address] [place] MCHC (RBC) [Mass/Vol] 31.1 g/dL Normal 30.5-36.0 [facility] Comment on above: Order Comment: Speci men Type: BLOOD SPECIMENOrdering Facility: [facility] Address: [address] [place] [address] Performed By: #### 5 8410-2 ####[facility] [id number] [place] [address] [place] MCV (RBC) [Entitic vol] 81.0 fL Normal 80.0-100.0 [facility] Comment on above: Order Comment: Speci men Type: BLOOD SPECIMENOrdering Facility: [facility] Address: [address] [place] [address] Performed By: #### 5 8410-2 ####[facility] [id number] [place] [address] [place] Nucleated RBC (Bld) [#/Vol] 10*3/uL Normal <0.01 [facility] Comment on above: Order Comment: Speci men Type: BLOOD SPECIMENOrdering Facility: [facility] Address: [address] [place] [address] Performed By: #### 5 8410-2 ####[facility] [id number] [place] [address] [place] Platelet mean volume (Bld) [Entitic vol] 9.6 fL Normal 9.0-12.7 [facility] Comment on above: Order Comment: Speci men Type: BLOOD SPECIMENOrdering Facility: [facility] Address: [address] [place] [address] Performed By: #### 5 8410-2 ####[facility] [id number] [place] [address] [place] Platelets (Bld) [#/Vol] 174 10*3/uL Normal 150-400 [facility] Comment on above: Order Comment: Speci men Type: BLOOD SPECIMENOrdering Facility: [facility] Address: [address] [place] [address] Performed By: #### 5 8410-2 ####[facility] [id number] [place] [address] [place] RBC (Bld) [#/Vol] 5.27 10*6/uL High 3.90-5.20 [facility] Comment on above: Order Comment: Speci men Type: BLOOD SPECIMENOrdering Facility: [facility] Address: [address] [place] [address] Performed By: #### 5 8410-2 ####[facility]CL[facility] [id number] [place] [id number] [place] WBC (Bld) [#/Vol] 2.63 10*3/uL Low 3.70-11.00 [facility] Comment on above: Order Comment: Speci men Type: BLOOD SPECIMENOrdering Facility: [facility] Address: [address] [place] [address] Performed By: #### 5 8410-2 ####[facility] [id number] [address] [address] [place] Iron and Iron binding capaci ty panelon 10-11-2024 Iron [Mass/Vol] 56 ug/dL Normal 41-186 [facility] Comment on above: Order Comment: Speci men Type: BLOOD SPECIMENOrdering Facility: [facility] Address: [address] [place] [address] Performed By: #### 5 0190-8, 61109-4, 72021-6, 6-3 ####[facility] [id number] [place] [address] [place] Iron binding capacity [Mass/Vol] 307 ug/dL Normal 232-386 [facility] Comment on above: Order Comment: Speci men Type: BLOOD SPECIMENOrdering Facility: [facility] Address: [address] [place] [address] Performed By: #### 5 0190-8, 58780-9, 76053-3, 6-3 ####[facility] [id number] [place] [address] [place] Iron/TIBC [Molar ratio] 18.2 % Normal 15.0-57.0 [facility] Comment on above: Order Comment: Speci men Type: BLOOD SPECIMENOrdering Facility: [facility] Address: [address] [place] [address] Performed By: #### 5 0190-8, 40013-2, 83775-1, 6-3 ####[facility] [id number] [address] [address] [place] Magnesium SerPl-mCncon 10-11 Magnesium [Mass/Vol] 2.7 mg/dL High 1.7-2.3 [facility] Comment on above: Order Comment: Speci men Type: BLOOD SPECIMENOrdering Facility: [facility] Address: [address] [place] [address] Performed By: #### 5 0190-8, 76810-5, 07453-4, 6-3 ####[facility] [id number] [place] [address] [place] Renal function 2000 panelon 10-11-2024 Albumin [Mass/Vol] 4.0 g/dL Normal 3.9-4.9 [facility] Comment on above: Order Comment: Speci men Type: BLOOD SPECIMENOrdering Facility: [facility] Address: [address] [place] [address] Performed By: #### 5 0190-8, 64891-7, 21981-8, 6-3 ####[facility] [id number] [place] [address] [place] Anion gap [Moles/Vol] 15 mmol/L Normal 8-15 [facility] Comment on above: Order Comment: Speci men Type: BLOOD SPECIMENOrdering Facility: [facility] Address: [address] [place] [address] Performed By: #### 5 0190-8, 18235-8, 96275-6, 6-3 ####[facility] [id number] [place] [address] [place] Calcium [Mass/Vol] 9.0 mg/dL Normal 8.5-10.2 [facility] Comment on above: Order Comment: Speci men Type: BLOOD SPECIMENOrdering Facility: [facility] Address: [address] [place] [address] Performed By: #### 5 0190-8, 22025-9, 25138-5, 3016-3 ####[facility] [id number] [place] [address] [place] Chloride [Moles/Vol] 94 mmol/L Low 98-107 [facility] Comment on above: Order Comment: Speci men Type: BLOOD SPECIMENOrdering Facility: [facility] Address: [address] [place] [address] Performed By: #### 5 0190-8, 48412-6, 44217-8, 6-3 ####[facility] [id number] [place] [id number] [place] CO2 [Moles/Vol] 27 mmol/L Normal 22-30 [facility] Comment on above: Order Comment: Speci men Type: BLOOD SPECIMENOrdering Facility: [facility] Address: [address] [place] [address] Performed By: #### 5 0190-8, 25071-9, 36207-4, 6-3 ####[facility] [id number] [place] [address] [place] Creatinine [Mass/Vol] 0.51 mg/dL Low 0.58-0.96 [facility] Comment on above: Order Comment: Speci men Type: BLOOD SPECIMENOrdering Facility: [facility] Address: [address] [place] [address] Performed By: #### 5 0190-8, 96344-1, 29392-8, 3015-3 ####[facility] [id number] [place] [address] [place] Creatinine and Glomerular filtration rate.predicted panel (S/P/Bld) 134 mL/min/1.73m??? Normal >=60 [facility] Comment on above: Order Comment: Speci men Type: BLOOD SPECIMENOrdering Facility: [facility] Address: [address] [place] [address] Result Comment: Cinthya mated Glomerular Filtration Rate (eGFR) is calculated using the 2020 CKD-EPI creatinine equation. This equation utilizes serum creatinine, sex, and age as parameters. The creatinine assay has traceable calibration to isotope dilution-mass spectrometry. Refer to KDIGO guidelines for clinical interpretation. In patients with unstable renal function, e.g. those with acute kidney injury, the eGFR may not accurately reflect actual GFR. Performed By: #### 5 0190-8, 65487-6, 71461-2, 3015-3 ####[facility] [id number] [place] [id number] [place] Glucose [Mass/Vol] 99 mg/dL Normal 74-99 [facility] Comment on above: Order Comment: Speci men Type: BLOOD SPECIMENOrdering Facility: [facility] Address: [address] [place] [address] Result Comment: The [place] Diabetes Association (ADA) provides guidance for cutoff values for fasting glucose and random glucose. The ADA defines fasting as no caloric intake for at least 8 hours. Fasting plasma glucose results between 100 to 125 mg/dL indicate increased risk for diabetes (prediabetes).Fasting plasma glucose results greater than or equal to 126 mg/dL meet the criteria for diagnosis of diabetes. In the absence of unequivocal hyperglycemia, results should be confirmed by repeat testing. In a patient with classic symptoms of hyperglycemia or hyperglycemic crisis, random plasma glucose results greater than or equal to 200 mg/dL meet the criteria for diagnosis of diabetes.Reference: Standards of Medical Care in Diabetes 2016, [place] [employer]. Diabetes Care. 2016.39(Suppl 1). Performed By: #### 5 0190-8, 07065-4, 83501-1, 3015-3 ####[facility] [id number] [place] [address] [place] Phosphate [Mass/Vol] 4.1 mg/dL Normal 2.7-4.8 [facility] Comment on above: Order Comment: Speci men Type: BLOOD SPECIMENOrdering Facility: [facility] Address: [address] [place] [address] Performed By: #### 5 0190-8, 16283-9, 02515-4, 3015-3 ####[facility] [id number] [place] [address] [place] Potassium [Moles/Vol] 3.7 mmol/L Normal 3.7-5.1 [facility] Comment on above: Order Comment: Speci men Type: BLOOD SPECIMENOrdering Facility: [facility] Address: [address] [place], [place] [address] Performed By: #### 5 0190-8, 84398-0, 63173-1, 3016-3 ####[facility] [id number] [place] [address] [place] Sodium [Moles/Vol] 136 mmol/L Normal 136-144 [facility] Comment on above: Order Comment: Speci men Type: BLOOD SPECIMENOrdering Facility: [facility] Address: [address] [place] [address] Performed By: #### 5 0190-8, 15509-5, 07140-6, 6-3 ####[facility] [id number] [place] [address] [place] Urea nitrogen [Mass/Vol] 3 mg/dL Low 7-21 [facility] Comment on above: Order Comment: Speci men Type: BLOOD SPECIMENOrdering Facility: [facility] Address: [address] [place] [address] Performed By: #### 5 0190-8, 02476-3, 50279-5, 6-3 ####[facility] [id number] [place] [id number] [place] SOCIAL WORKon 10-11-2024 SOCIAL WORK Normal [facility] TSH SerPl-aCncon 10-11-2024 TSH Qn 0.602 m[IU]/L Normal 0.270-4.20 0 [facility] Comment on above: Order Comment: Speci men Type: BLOOD SPECIMENOrdering Facility: [facility] Address: [address] [place] [address] Result Comment: If t he patient is , TSH reference range varies by gestational period:First Trimester (weeks 9-12): 0.180-2.990 mIU/LSecond Trimester: 0.110-3.980 mIU/LThird Trimester: 0.480-4.710 mIU/Dax Nair et al. A Practical Approach for the Verifications and Determination of Site- and Trimester-Specific Reference Intervals for Thyroid Function tests in . Thyroid, 2019:29:3:412-420. Angelo E, et al. 2017 Guidelines of the [place] Thyroid Association for the Diagnosis and Management of Thyroid Disease during and the . Thyroid, 2017:27:3:315-389. Performed By: #### 5 0190-8, 92816-3, 65972-6, 3016-3 ####[facility] [id number] [place] [id number] [place] XR ABDOMEN 1V SUPINEon 10-11 XR ABDOMEN 1V SUPINE [facility] CASE MANAGEMon 10-10-2024 CASE MANAGEM Normal [facility] CBC panel Auto (Bld)on 10-10 Erythrocyte distribution width (RBC) [Ratio] 15.7 % High 11.5-15.0 [facility] Comment on above: Order Comment: Speci men Type: BLOOD SPECIMENOrdering Facility: [facility] Address: [address] [place] [address] Performed By: #### 5 8410-2 ####[facility] [id number] [place] [address] [place] Hematocrit (Bld) [Volume fraction] 41.9 % Normal 36.0-46.0 [facility] Comment on above: Order Comment: Speci men Type: BLOOD SPECIMENOrdering Facility: [facility] Address: [address] [place] [address] Performed By: #### 5 8410-2 ####[facility] [id number] [place] [id number] [place] Hemoglobin (Bld) [Mass/Vol] 12.9 g/dL Normal 11.5-15.5 [facility] Comment on above: Order Comment: Speci men Type: BLOOD SPECIMENOrdering Facility: [facility] Address: [address] [place] [address] Performed By: #### 5 8410-2 ####[facility] [id number] [place] [address] [place] MCH (RBC) [Entitic mass] 25.3 pg Low 26.0-34.0 [facility] Comment on above: Order Comment: Speci men Type: BLOOD SPECIMENOrdering Facility: [facility] Address: [address] [place] [address] Performed By: #### 5 8410-2 ####[facility] [id number] [place] [address] [place] MCHC (RBC) [Mass/Vol] 30.8 g/dL Normal 30.5-36.0 [facility] Comment on above: Order Comment: Speci men Type: BLOOD SPECIMENOrdering Facility: [facility] Address: [address] [place] [address] Performed By: #### 5 8410-2 ####[facility] [id number] [place] [address] [place] MCV (RBC) [Entitic vol] 82.3 fL Normal 80.0-100.0 [facility] Comment on above: Order Comment: Speci men Type: BLOOD SPECIMENOrdering Facility: [facility] Address: [address] [place] [address] Performed By: #### 5 8410-2 ####[facility] [id number] [place] [address] [place] Nucleated RBC (Bld) [#/Vol] 10*3/uL Normal <0.01 [facility] Comment on above: Order Comment: Speci men Type: BLOOD SPECIMENOrdering Facility: [facility] Address: [address] [place] [address] Performed By: #### 5 8410-2 ####[facility] [id number] [place] [address] [place] Platelet mean volume (Bld) [Entitic vol] 9.2 fL Normal 9.0-12.7 [facility] Comment on above: Order Comment: Speci men Type: BLOOD SPECIMENOrdering Facility: [facility] Address: [address] [place] [address] Performed By: #### 5 8410-2 ####[facility] LABCLIA [id number] [place] [address] [place] Platelets (Bld) [#/Vol] 165 10*3/uL Normal 150-400 [facility] Comment on above: Order Comment: Speci men Type: BLOOD SPECIMENOrdering Facility: [facility] Address: [address] [place] [address] Performed By: #### 5 8410-2 ####[facility] LABCLIA [id number] [place] [address] [place] RBC (Bld) [#/Vol] 5.09 10*6/uL Normal 3.90-5.20 [facility] Comment on above: Order Comment: Speci men Type: BLOOD SPECIMENOrdering Facility: [facility] Address: [address] [place] [address] Performed By: #### 5 8410-2 ####[facility] LABCLIA [id number] [place] [address] [place] WBC (Bld) [#/Vol] 2.02 10*3/uL Low 3.70-11.00 [facility] Comment on above: Order Comment: Speci men Type: BLOOD SPECIMENOrdering Facility: [facility] Address: [address] [place] [address] Performed By: #### 5 8410-2 ####[facility] LABCLIA [id number] [place] [address] [place] Magnesium SerPl-mCncon 10-10 Magnesium [Mass/Vol] 1.8 mg/dL Normal 1.7-2.3 [facility] Comment on above: Order Comment: Speci men Type: BLOOD SPECIMENOrdering Facility: [facility] Address: [address] [place] [address] Performed By: #### 1 9123-9, 09466-4 ####[facility] LABIA [id number] [place] [address] [place] PT panel Coag (PPP)on 2024 INR Coag (PPP) [Relative time] 1.4 {INR} High 0.9-1.3 [facility] Comment on above: Order Comment: Alex mcgovern Type: BLOOD SPECIMENOrdering Facility: [facility] Address: [address] [place] [address] Result Comment: Tana min K Antagonist (VKA) Therapeutic Range: INR 2 to 3 (Target INR of 2.5)Note: For patients treated with VKA drugs, such as warfarin, the [place] [employer] 2012 Guideline recommends a therapeutic INR range of 2 to 3 (target INR of 2.5). This recommendation includes high-risk patients with antiphospholipid syndrome with previous arterial or venous thromboembolism, current-generation mechanical or bioprosthetic aortic heart valve replacement.Note: Patients with mechanical aortic valve replacement and additional risk factors for thromboembolic events (atrial fibrillation, previous thromboembolism, LV dysfunction, hypercoagulable conditions) or an older generation mechanical AVR (i.e., ball in-Cage) or any mechanical MVR should have a INR therapeutic range of 2.5 to 3.5 (target INR of 3).Sarah GH, et al. Chest 2012, 141:7S-47SNishimura RA, et al. [facility] 2017, 70: 252-289 Performed By: #### 3 4528-0 ####[facility] [id number] [place] [address] [place] PT Coag (PPP) [Time] 15.3 s High 9.7-13.0 [facility] Comment on above: Order Comment: Alex mcgovern Type: BLOOD SPECIMENOrdering Facility: [facility] Address: [address] [place] [address] Performed By: #### 3 4528-0 ####[facility] LABCLIA [id number] [facility] [address] [address] [place] Renal function 2000 panelon 10-10-2024 Albumin [Mass/Vol] 3.6 g/dL Low 3.9-4.9 [facility] Comment on above: Order Comment: Speci men Type: BLOOD SPECIMENOrdering Facility: [facility] Address: [address] [place] [address] Performed By: #### 1 9123-9, 65503-7 ####[facility] LABCLIA [id number] [facility] [place] [id number] [place] Anion gap [Moles/Vol] 10 mmol/L Normal 8-15 [facility] Comment on above: Order Comment: Speci men Type: BLOOD SPECIMENOrdering Facility: [facility] Address: [address] [place] [address] Performed By: #### 1 9123-9, 51962-3 ####[facility] LABCLIA [id number] [place] [address] [place] Calcium [Mass/Vol] 9.0 mg/dL Normal 8.5-10.2 [facility] Comment on above: Order Comment: Speci men Type: BLOOD SPECIMENOrdering Facility: [facility] Address: [address] [place], [place] [address] Performed By: #### 1 9123-9, 60155-1 ####[facility] LABCLIA [id number] [facility] [address] [address] [place] Chloride [Moles/Vol] 99 mmol/L Normal 98-107 [facility] Comment on above: Order Comment: Speci men Type: BLOOD SPECIMENOrdering Facility: [facility] Address: [address] [place], [place] [address] Performed By: #### 1 9123-9, 11610-3 ####[facility] LABCLIA [id number] [place] [address] [place] CO2 [Moles/Vol] 28 mmol/L Normal 22-30 [facility] Comment on above: Order Comment: Speci men Type: BLOOD SPECIMENOrdering Facility: [facility] Address: [address] [place] [address] Performed By: #### 1 9123-9, 45195-1 ####[facility] LABCLIA [id number] [place] [address] [place] Creatinine [Mass/Vol] 0.48 mg/dL Low 0.58-0.96 [facility] Comment on above: Order Comment: Speci men Type: BLOOD SPECIMENOrdering Facility: [facility] Address: [address] [place] [address] Performed By: #### 1 9123-9, 38636-5 ####[facility] LABCLIA [id number] [place] [address] [place] Creatinine and Glomerular filtration rate.predicted panel (S/P/Bld) 136 mL/min/1.73m??? Normal >=60 [facility] Comment on above: Order Comment: Speci men Type: BLOOD SPECIMENOrdering Facility: [facility] Address: [address] [place] [address] Result Comment: Cinthya mated Glomerular Filtration Rate (eGFR) is calculated using the 2020 CKD-EPI creatinine equation. This equation utilizes serum creatinine, sex, and age as parameters. The creatinine assay has traceable calibration to isotope dilution-mass spectrometry. Refer to KDIGO guidelines for clinical interpretation. In patients with unstable renal function, e.g. those with acute kidney injury, the eGFR may not accurately reflect actual GFR. Performed By: #### 1 9123-9, 98413-6 ####[facility] LABCLIA [id number] [place] [address] [place] Glucose [Mass/Vol] 103 mg/dL High 74-99 [facility] Comment on above: Order Comment: Speci men Type: BLOOD SPECIMENOrdering Facility: [facility] Address: [address] [place] [id number] Result Comment: The [place] [employer] (ADA) provides guidance for cutoff values for fasting glucose and random glucose. The ADA defines fasting as no caloric intake for at least 8 hours. Fasting plasma glucose results between 100 to 125 mg/dL indicate increased risk for diabetes (prediabetes).Fasting plasma glucose results greater than or equal to 126 mg/dL meet the criteria for diagnosis of diabetes. In the absence of unequivocal hyperglycemia, results should be confirmed by repeat testing. In a patient with classic symptoms of hyperglycemia or hyperglycemic crisis, random plasma glucose results greater than or equal to 200 mg/dL meet the criteria for diagnosis of diabetes.Reference: Standards of Medical Care in Diabetes 2016, [place] [employer]. Diabetes Care. 2016.39(Suppl 1). Performed By: #### 1 9123-9, 32892-5 ####[facility] LABCLIA [id number] [place] [address] [place] Phosphate [Mass/Vol] 3.8 mg/dL Normal 2.7-4.8 [facility] Comment on above: Order Comment: Speci men Type: BLOOD SPECIMENOrdering Facility: [facility] Address: [address] [place] [address] Performed By: #### 1 9123-9, 51252-7 ####[facility] LABCLIA [id number] [place] [address] [place] Potassium [Moles/Vol] 3.8 mmol/L Normal 3.7-5.1 [facility] Comment on above: Order Comment: Speci men Type: BLOOD SPECIMENOrdering Facility: [facility] Address: [address] [place] [id number] Performed By: #### 1 9123-9, 91438-8 ####[facility] LABCLIA [id number] [place] [address] [place] Sodium [Moles/Vol] 137 mmol/L Normal 136-144 [facility] Comment on above: Order Comment: Speci men Type: BLOOD SPECIMENOrdering Facility: [facility] Address: [address] [place] [address] Performed By: #### 1 9123-9, 01415-0 ####[facility] LABCLIA [id number] [place] [address] [place] Urea nitrogen [Mass/Vol] mg/dL Low 7-21 [facility] Comment on above: Order Comment: Speci men Type: BLOOD SPECIMENOrdering Facility: [facility] Address: [address] [place] [address] Performed By: #### 1 9123-9, 01591-4 ####[facility] LABIA [id number] [place] [address] [place] XR ABDOMEN 1V SUPINEon 10-10 XR ABDOMEN 1V SUPINE Normal [facility] CBC panel Auto (Bld)on 10-09 Erythrocyte distribution width (RBC) [Ratio] 15.8 % High 11.5-15.0 [facility] Comment on above: Order Comment: Speci men Type: BLOOD SPECIMENOrdering Facility: [facility] Address: [address] [place] [address] Performed By: #### 5 8410-2 ####[facility] LABCLIA [id number] [place] [address] [place] Hematocrit (Bld) [Volume fraction] 39.0 % Normal 36.0-46.0 [facility] Comment on above: Order Comment: Speci men Type: BLOOD SPECIMENOrdering Facility: [facility] Address: [address] [place] [address] Performed By: #### 5 8410-2 ####[facility] LABCLIA [id number] [place] [address] [place] Hemoglobin (Bld) [Mass/Vol] 12.2 g/dL Normal 11.5-15.5 [facility] Comment on above: Order Comment: Speci men Type: BLOOD SPECIMENOrdering Facility: [facility] Address: [address] [place] [address] Performed By: #### 5 8410-2 ####[facility] LABIA [id number] [place] [address] [place] MCH (RBC) [Entitic mass] 25.6 pg Low 26.0-34.0 [facility] Comment on above: Order Comment: Speci men Type: BLOOD SPECIMENOrdering Facility: [facility] Address: [address] [place] [address] Performed By: #### 5 8410-2 ####[facility] LABIA [id number] [place] [address] [place] MCHC (RBC) [Mass/Vol] 31.3 g/dL Normal 30.5-36.0 [facility] Comment on above: Order Comment: Speci men Type: BLOOD SPECIMENOrdering Facility: [facility] Address: [address] [place] [address] Performed By: #### 5 8410-2 ####[facility] LABIA [id number] [place] [address] [place] MCV (RBC) [Entitic vol] 81.8 fL Normal 80.0-100.0 [facility] Comment on above: Order Comment: Speci men Type: BLOOD SPECIMENOrdering Facility: [facility] Address: [address] [place] [address] Performed By: #### 5 8410-2 ####[facility] LABIA [id number] [place] [address] [place] Nucleated RBC (Bld) [#/Vol] 10*3/uL Normal <0.01 [facility] Comment on above: Order Comment: Speci men Type: BLOOD SPECIMENOrdering Facility: [facility] Address: [address] [place] [address] Performed By: #### 5 8410-2 ####[facility] LABCLIA [id number] [place] [address] [place] Platelet mean volume (Bld) [Entitic vol] 9.4 fL Normal 9.0-12.7 [facility] Comment on above: Order Comment: Speci men Type: BLOOD SPECIMENOrdering Facility: [facility] Address: [address] [place] [address] Performed By: #### 5 8410-2 ####[facility] LABIA [id number] [place] [address] [place] Platelets (Bld) [#/Vol] 177 10*3/uL Normal 150-400 [facility] Comment on above: Order Comment: Speci men Type: BLOOD SPECIMENOrdering Facility: [facility] Address: [address] [place] [address] Performed By: #### 5 8410-2 ####[facility] LABIA [id number] [place] [address] [place] RBC (Bld) [#/Vol] 4.77 10*6/uL Normal 3.90-5.20 [facility] Comment on above: Order Comment: Speci men Type: BLOOD SPECIMENOrdering Facility: [facility] Address: [address] [place] [address] Performed By: #### 5 8410-2 ####[facility] LABIA [id number] [place] [address] [place] WBC (Bld) [#/Vol] 2.13 10*3/uL Low 3.70-11.00 [facility] Comment on above: Order Comment: Speci men Type: BLOOD SPECIMENOrdering Facility: [facility] Address: [address] [place] [address] Performed By: #### 5 8410-2 ####[facility] LABIA [id number] [place] [address] [place] Magnesium SerPl-mCncon 10-09 Magnesium [Mass/Vol] 1.8 mg/dL Normal 1.7-2.3 [facility] Comment on above: Order Comment: Speci men Type: BLOOD SPECIMENOrdering Facility: [facility] Address: [address] [place] [address] Performed By: #### 2 4362-6, ####[facility] LABCLIA [id number] [facility] [place] [address] [place] Renal function 2000 panelon 10-09-2024 Albumin [Mass/Vol] 3.4 g/dL Low 3.9-4.9 [facility] Comment on above: Order Comment: Speci men Type: BLOOD SPECIMENOrdering Facility: [facility] Address: [address] [place] [address] Performed By: #### 2 4362-6, ####[facility] LABCLIA [id number] [place] [address] [place] Anion gap [Moles/Vol] 12 mmol/L Normal 8-15 [facility] Comment on above: Order Comment: Speci men Type: BLOOD SPECIMENOrdering Facility: [facility] Address: [address] [place] [address] Performed By: #### 2 4362-6, ####[facility] LABCLIA [id number] [place] [address] [place] Calcium [Mass/Vol] 8.4 mg/dL Low 8.5-10.2 [facility] Comment on above: Order Comment: Speci men Type: BLOOD SPECIMENOrdering Facility: [facility] Address: [address] [place] [address] Performed By: #### 2 4362-6, ####[facility] LABCLIA [id number] [facility] [place] [id number] [place] Chloride [Moles/Vol] 103 mmol/L Normal 98-107 [facility] Comment on above: Order Comment: Speci men Type: BLOOD SPECIMENOrdering Facility: [facility] Address: [address] [place] [address] Performed By: #### 2 4362-6, ####[facility] LABIA [id number] [place] [id number] [place] CO2 [Moles/Vol] 24 mmol/L Normal 22-30 [facility] Comment on above: Order Comment: Speci men Type: BLOOD SPECIMENOrdering Facility: [facility] Address: [address] [place] [address] Performed By: #### 2 4362-6, ####[facility] LABIA [id number] [place] [address] [place] Creatinine [Mass/Vol] 0.49 mg/dL Low 0.58-0.96 [facility] Comment on above: Order Comment: Speci men Type: BLOOD SPECIMENOrdering Facility: [facility] Address: [address] [place] [address] Performed By: #### 2 4362-6, ####[facility] LABIA [id number] [place] [address] [place] Creatinine and Glomerular filtration rate.predicted panel (S/P/Bld) 135 mL/min/1.73m??? Normal >=60 [facility] Comment on above: Order Comment: Speci men Type: BLOOD SPECIMENOrdering Facility: [facility] Address: [address] [place] [address] Result Comment: Cinthya mated Glomerular Filtration Rate (eGFR) is calculated using the 2020 CKD-EPI creatinine equation. This equation utilizes serum creatinine, sex, and age as parameters. The creatinine assay has traceable calibration to isotope dilution-mass spectrometry. Refer to KDIGO guidelines for clinical interpretation. In patients with unstable renal function, e.g. those with acute kidney injury, the eGFR may not accurately reflect actual GFR. Performed By: #### 2 43610-13, ####[facility] LABCLIA [id number] [address] [address] [place] Glucose [Mass/Vol] 110 mg/dL High 74-99 [facility] Comment on above: Order Comment: Speci men Type: BLOOD SPECIMENOrdering Facility: [facility] Address: [address] [place] [address] Result Comment: The [place] Diabetes Association (ADA) provides guidance for cutoff values for fasting glucose and random glucose. The ADA defines fasting as no caloric intake for at least 8 hours. Fasting plasma glucose results between 100 to 125 mg/dL indicate increased risk for diabetes (prediabetes).Fasting plasma glucose results greater than or equal to 126 mg/dL meet the criteria for diagnosis of diabetes. In the absence of unequivocal hyperglycemia, results should be confirmed by repeat testing. In a patient with classic symptoms of hyperglycemia or hyperglycemic crisis, random plasma glucose results greater than or equal to 200 mg/dL meet the criteria for diagnosis of diabetes.Reference: Standards of Medical Care in Diabetes 2016, [place] [employer]. Diabetes Care. 2016.39(Suppl 1). Performed By: #### 2 43610-13, ####[facility] LABIA [id number] [place] [address] [place] Phosphate [Mass/Vol] 3.6 mg/dL Normal 2.7-4.8 [facility] Comment on above: Order Comment: Speci men Type: BLOOD SPECIMENOrdering Facility: [facility] Address: [address] [place] [address] Performed By: #### 2 4366, ####[facility] LABIA [id number] [place] [address] [place] Potassium [Moles/Vol] 3.6 mmol/L Low 3.7-5.1 [facility] Comment on above: Order Comment: Speci men Type: BLOOD SPECIMENOrdering Facility: [facility] Address: [address] [place] [address] Performed By: #### 2 43610-13, ####[facility] LABCLIA [id number] [address] [address] [place] Sodium [Moles/Vol] 139 mmol/L Normal 136-144 [facility] Comment on above: Order Comment: Speci men Type: BLOOD SPECIMENOrdering Facility: [facility] Address: [address] [place] [address] Performed By: #### 2 4362-6, ####[facility] LABIA [id number] [place] [address] [place] Urea nitrogen [Mass/Vol] mg/dL Low 7-21 [facility] Comment on above: Order Comment: Speci men Type: BLOOD SPECIMENOrdering Facility: [facility] Address: [address] [place] [address] Result Comment: Resu lt rechecked. Performed By: #### 2 4362-6, ####[facility] LABIA [id number] [place] [address] [place] Basic metabolic 2000 panelon 10-08-2024 Anion gap [Moles/Vol] 12 mmol/L Normal 8-15 [facility] Comment on above: Order Comment: Speci men Type: BLOOD SPECIMENOrdering Facility: [facility] Address: [address] [place] [address] Performed By: #### 2 4325-3, 2777-1, 29104-2, ####[facility] LABIA [id number] [address] [address] [place] Calcium [Mass/Vol] 8.4 mg/dL Low 8.5-10.2 [facility] Comment on above: Order Comment: Speci men Type: BLOOD SPECIMENOrdering Facility: [facility] Address: [address] [place] [address] Performed By: #### 2 4325-3, 2777-1, 53326-7, ####[facility] LABCLIA [id number] [address] [address] [place] Chloride [Moles/Vol] 99 mmol/L Normal 98-107 [facility] Comment on above: Order Comment: Speci men Type: BLOOD SPECIMENOrdering Facility: [facility] Address: [address] [place] [address] Performed By: #### 2 4325-3, 2777-1, 56460-7, ####[facility] LABCLIA [id number] [address] [address] [place] CO2 [Moles/Vol] 25 mmol/L Normal 22-30 [facility] Comment on above: Order Comment: Speci men Type: BLOOD SPECIMENOrdering Facility: [facility] Address: [address] [place] [address] Performed By: #### 2 4325-3, 2777-1, 25310-3, ####[facility] LABCLIA [id number] [address] [address] [place] Creatinine [Mass/Vol] 0.45 mg/dL Low 0.58-0.96 [facility] Comment on above: Order Comment: Speci men Type: BLOOD SPECIMENOrdering Facility: [facility] Address: [address] [place] [address] Performed By: #### 2 4325-3, 2777-1, 16492-9, ####[facility] LABCLIA [id number] [address] [address] [place] Creatinine and Glomerular filtration rate.predicted panel (S/P/Bld) 138 mL/min/1.73m??? Normal >=60 [facility] Comment on above: Order Comment: Speci men Type: BLOOD SPECIMENOrdering Facility: [facility] Address: [address] [place] [address] Result Comment: Cinthya mated Glomerular Filtration Rate (eGFR) is calculated using the 2020 CKD-EPI creatinine equation. This equation utilizes serum creatinine, sex, and age as parameters. The creatinine assay has traceable calibration to isotope dilution-mass spectrometry. Refer to KDIGO guidelines for clinical interpretation. In patients with unstable renal function, e.g. those with acute kidney injury, the eGFR may not accurately reflect actual GFR. Performed By: #### 2 4325-3, 2777-1, 96596-6, ####[facility] LABIA [id number] [address] [address] [place] Glucose [Mass/Vol] 102 mg/dL High 74-99 [facility] Comment on above: Order Comment: Alex mcgovern Type: BLOOD SPECIMENOrdering Facility: [facility] Address: [address] [place] [address] Result Comment: The [place] Diabetes Association (ADA) provides guidance for cutoff values for fasting glucose and random glucose. The ADA defines fasting as no caloric intake for at least 8 hours. Fasting plasma glucose results between 100 to 125 mg/dL indicate increased risk for diabetes (prediabetes).Fasting plasma glucose results greater than or equal to 126 mg/dL meet the criteria for diagnosis of diabetes. In the absence of unequivocal hyperglycemia, results should be confirmed by repeat testing. In a patient with classic symptoms of hyperglycemia or hyperglycemic crisis, random plasma glucose results greater than or equal to 200 mg/dL meet the criteria for diagnosis of diabetes.Reference: Standards of Medical Care in Diabetes 2016, [place] [employer]. Diabetes Care. 2016.39(Suppl 1). Performed By: #### 2 4325-3, 2777-1, 82973-8, ####[facility] LABIA [id number] [address] [address] [place] Potassium [Moles/Vol] 3.4 mmol/L Low 3.7-5.1 [facility] Comment on above: Order Comment: Alex mcgovern Type: BLOOD SPECIMENOrdering Facility: [facility] Address: [address] [place] [address] Performed By: #### 2 4325-3, 2777-1, 44556-4, ####[facility] LABCLIA [id number] [place] [id number] [place] Sodium [Moles/Vol] 136 mmol/L Normal 136-144 [facility] Comment on above: Order Comment: Speci men Type: BLOOD SPECIMENOrdering Facility: [facility] Address: [address] [place] [address] Performed By: #### 2 4325-3, 2777-1, 91401-5, ####[facility] LABIA [id number] [place] [address] [place] Urea nitrogen [Mass/Vol] mg/dL Low 7-21 [facility] Comment on above: Order Comment: Speci men Type: BLOOD SPECIMENOrdering Facility: [facility] Address: [address] [place] [address] Result Comment: Resu lt rechecked. Performed By: #### 2 4325-3, 277-1, 93487-7, ####[facility] LABIA [id number] [place] [address] [place] CBC panel Auto (Bld)on 10-08 Erythrocyte distribution width (RBC) [Ratio] 15.9 % High 11.5-15.0 [facility] Comment on above: Order Comment: Speci men Type: BLOOD SPECIMENOrdering Facility: [facility] Address: [address] [place] [address] Performed By: #### 5 8410-2 ####[facility] LABIA [id number] [place] [address] [place] Hematocrit (Bld) [Volume fraction] 38.2 % Normal 36.0-46.0 [facility] Comment on above: Order Comment: Speci men Type: BLOOD SPECIMENOrdering Facility: [facility] Address: [address] [place] [address] Performed By: #### 5 8410-2 ####[facility] LABIA [id number] [place] [address] [place] Hemoglobin (Bld) [Mass/Vol] 11.5 g/dL Normal 11.5-15.5 [facility] Comment on above: Order Comment: Speci men Type: BLOOD SPECIMENOrdering Facility: [facility] Address: [address] [place] [address] Performed By: #### 5 8410-2 ####[facility] LABIA [id number] [place] [address] [place] MCH (RBC) [Entitic mass] 25.4 pg Low 26.0-34.0 [facility] Comment on above: Order Comment: Speci men Type: BLOOD SPECIMENOrdering Facility: [facility] Address: [address] [place] [address] Performed By: #### 5 8410-2 ####[facility] [id number] [place] [address] [place] MCHC (RBC) [Mass/Vol] 30.1 g/dL Low 30.5-36.0 [facility] Comment on above: Order Comment: Speci men Type: BLOOD SPECIMENOrdering Facility: [facility] Address: [address] [place] [address] Performed By: #### 5 8410-2 ####[facility] LABIA [id number] [place] [address] [place] MCV (RBC) [Entitic vol] 84.5 fL Normal 80.0-100.0 [facility] Comment on above: Order Comment: Speci men Type: BLOOD SPECIMENOrdering Facility: [facility] Address: [address] [place] [address] Performed By: #### 5 8410-2 ####[facility] [id number] [place] [address] [place] Nucleated RBC (Bld) [#/Vol] 10*3/uL Normal <0.01 [facility] Comment on above: Order Comment: Speci men Type: BLOOD SPECIMENOrdering Facility: [facility] Address: [address] [place] [address] Performed By: #### 5 8410-2 ####[facility] LABCLIA [id number] [place] [address] [place] Platelet mean volume (Bld) [Entitic vol] 9.9 fL Normal 9.0-12.7 [facility] Comment on above: Order Comment: Speci men Type: BLOOD SPECIMENOrdering Facility: [facility] Address: [address] [place] [address] Performed By: #### 5 8410-2 ####[facility] LABCLIA [id number] [place] [address] [place] Platelets (Bld) [#/Vol] 148 10*3/uL Low 150-400 [facility] Comment on above: Order Comment: Speci men Type: BLOOD SPECIMENOrdering Facility: [facility] Address: [address] [place] [address] Performed By: #### 5 8410-2 ####[facility] LABCLIA [id number] [place] [address] [place] RBC (Bld) [#/Vol] 4.52 10*6/uL Normal 3.90-5.20 [facility] Comment on above: Order Comment: Speci men Type: BLOOD SPECIMENOrdering Facility: [facility] Address: [address] [place] [address] Performed By: #### 5 8410-2 ####[facility] LABCLIA [id number] [place] [address] [place] WBC (Bld) [#/Vol] 2.86 10*3/uL Low 3.70-11.00 [facility] Comment on above: Order Comment: Speci men Type: BLOOD SPECIMENOrdering Facility: [facility] Address: [address] [place] [address] Performed By: #### 5 8410-2 ####[facility] LABCLIA [id number] [place] [address] [place] Hepatic function 2000 panelo n 10-08-2024 Albumin [Mass/Vol] 3.6 g/dL Low 3.9-4.9 [facility] Comment on above: Order Comment: Speci men Type: BLOOD SPECIMENOrdering Facility: [facility] Address: [address] [place] [address] Performed By: #### 2 4325-3, 2777-1, 53094-5, 71721-2 ####[facility] LABCLIA [id number] [place] [address] [place] ALP [Catalytic activity/Vol] 52 U/L Normal 34-123 [facility] Comment on above: Order Comment: Speci men Type: BLOOD SPECIMENOrdering Facility: [facility] Address: [address] [place] [address] Performed By: #### 2 4325-3, 2777-1, 29257-5, 59742-1 ####[facility] LABCLIA [id number] [place] [address] [place] ALT [Catalytic activity/Vol] 35 U/L Normal 7-38 [facility] Comment on above: Order Comment: Speci men Type: BLOOD SPECIMENOrdering Facility: [facility] Address: [address] [place] [address] Performed By: #### 2 4325-3, 2777-1, 75846-6, 11495-7 ####[facility] LABCLIA [id number] [place] [address] [place] AST [Catalytic activity/Vol] 54 U/L High 13-35 [facility] Comment on above: Order Comment: Speci men Type: BLOOD SPECIMENOrdering Facility: [facility] Address: [address] [place] [address] Performed By: #### 2 4325-3, 2777-1, 49935-5, 34383-0 ####[facility] LABCLIA [id number] [place] [address] [place] Bilirubin [Mass/Vol] 0.2 mg/dL Normal 0.2-1.3 [facility] Comment on above: Order Comment: Speci men Type: BLOOD SPECIMENOrdering Facility: [facility] Address: [address] [place] [address] Performed By: #### 2 4325-3, 2777-1, 51185-5, ####[facility] LABCLIA [id number] [place] [address] [place] Bilirubin.conjugated [Mass/Vol] 0.1 mg/dL Normal <0.3 [facility] Comment on above: Order Comment: Speci men Type: BLOOD SPECIMENOrdering Facility: [facility] Address: [address] [place] [address] Performed By: #### 2 4325-3, 2777-1, 11402-0, ####[facility] LABCLIA [id number] [place] [address] [place] Protein [Mass/Vol] 6.5 g/dL Normal 6.3-8.0 [facility] Comment on above: Order Comment: Speci men Type: BLOOD SPECIMENOrdering Facility: [facility] Address: [address] [place] [address] Performed By: #### 2 4325-3, 2777-1, 24274-0, ####[facility] LABCLIA [id number] [place] [id number] [place] Magnesium SerPl-mCncon 10-08 Magnesium [Mass/Vol] 2.1 mg/dL Normal 1.7-2.3 [facility] Comment on above: Order Comment: Speci men Type: BLOOD SPECIMENOrdering Facility: [facility] Address: [address] [place] [address] Performed By: #### 2 4325-3, 2777-1, 67676-9, 16993-6 ####[facility] LABCLIA [id number] [facility] [place] [id number] [place] Phosphate SerPl-mCncon 10-08 Phosphate [Mass/Vol] 2.5 mg/dL Low 2.7-4.8 [facility] Comment on above: Order Comment: Speci men Type: BLOOD SPECIMENOrdering Facility: [facility] Address: [address] [place] [address] Performed By: #### 2 4325-3, 277-1, 59725-2, ####[facility] LABCLIA [id number] [facility] [address] [place] Basic metabolic 2000 panelon 10-07-2024 Anion gap [Moles/Vol] 14 mmol/L Normal 8-15 [facility] Comment on above: Order Comment: Speci men Type: BLOOD SPECIMENOrdering Facility: [facility] Address: [address] [place] [address] Performed By: #### 2 777-1, , 80194-1 ####[facility] LABCLIA [id number] [facility] [place] [id number] [place] Calcium [Mass/Vol] 8.3 mg/dL Low 8.5-10.2 [facility] Comment on above: Order Comment: Speci men Type: BLOOD SPECIMENOrdering Facility: [facility] Address: [address] [place] [address] Performed By: #### 2 777-1, , 10777-9 ####[facility] LABCLIA [id number] [facility] [place] [place] [address] [place] Chloride [Moles/Vol] 96 mmol/L Low 98-107 [facility] Comment on above: Order Comment: Speci men Type: BLOOD SPECIMENOrdering Facility: [facility] Address: [address] [place] [address] Performed By: #### 2 777-1, , 10202-1 ####[facility] LABCLIA [id number] [place] [address] [place] CO2 [Moles/Vol] 24 mmol/L Normal 22-30 [facility] Comment on above: Order Comment: Speci men Type: BLOOD SPECIMENOrdering Facility: [facility] Address: [address] [place] [address] Performed By: #### 2 777-1, , 49371-6 ####[facility] LABCLIA [id number] [place] [address] [place] Creatinine [Mass/Vol] 0.37 mg/dL Low 0.58-0.96 [facility] Comment on above: Order Comment: Speci men Type: BLOOD SPECIMENOrdering Facility: [facility] Address: [address] [place] [address] Performed By: #### 2 777-1, , ####[facility] LABCLIA [id number] [place] [address] [place] Creatinine and Glomerular filtration rate.predicted panel (S/P/Bld) 145 mL/min/1.73m??? Normal >=60 [facility] Comment on above: Order Comment: Speci men Type: BLOOD SPECIMENOrdering Facility: [facility] Address: [address] [place] [address] Result Comment: Cinthya mated Glomerular Filtration Rate (eGFR) is calculated using the 2020 CKD-EPI creatinine equation. This equation utilizes serum creatinine, sex, and age as parameters. The creatinine assay has traceable calibration to isotope dilution-mass spectrometry. Refer to KDIGO guidelines for clinical interpretation. In patients with unstable renal function, e.g. those with acute kidney injury, the eGFR may not accurately reflect actual GFR. Performed By: #### 2 777-1, , ####[facility] LABCLIA [id number] [address] [address] [place] Glucose [Mass/Vol] 96 mg/dL Normal 74-99 [facility] Comment on above: Order Comment: Speci men Type: BLOOD SPECIMENOrdering Facility: [facility] Address: [address] [place] [address] Result Comment: The [place] [employer] (ADA) provides guidance for cutoff values for fasting glucose and random glucose. The ADA defines fasting as no caloric intake for at least 8 hours. Fasting plasma glucose results between 100 to 125 mg/dL indicate increased risk for diabetes (prediabetes).Fasting plasma glucose results greater than or equal to 126 mg/dL meet the criteria for diagnosis of diabetes. In the absence of unequivocal hyperglycemia, results should be confirmed by repeat testing. In a patient with classic symptoms of hyperglycemia or hyperglycemic crisis, random plasma glucose results greater than or equal to 200 mg/dL meet the criteria for diagnosis of diabetes.Reference: Standards of Medical Care in Diabetes 2016, [place] [employer]. Diabetes Care. 2016.39(Suppl 1). Performed By: #### 2 777-1, , ####[facility] LABCLIA [id number] [place] [id number] [place] Potassium [Moles/Vol] 2.7 mmol/L Low 3.7-5.1 [facility] Comment on above: Order Comment: Sini men Type: BLOOD SPECIMENOrdering Facility: [facility] Address: [address] [place] [address] Performed By: #### 2 777-1, , ####[facility] LABCLIA [id number] [address] [address] [place] Sodium [Moles/Vol] 134 mmol/L Low 136-144 [facility] Comment on above: Order Comment: Speci men Type: BLOOD SPECIMENOrdering Facility: [facility] Address: [address] [place] [address] Performed By: #### 2 777-1, , 29654-2 ####[facility] LABCLIA [id number] [place] [address] [place] Urea nitrogen [Mass/Vol] mg/dL Low 7-21 [facility] Comment on above: Order Comment: Speci men Type: BLOOD SPECIMENOrdering Facility: [facility] Address: [address] [place] [address] Result Comment: Resu lt rechecked. Performed By: #### 2 777-1, , ####[facility] LABCLIA [id number] [place] [address] [place] CASE MGT INIT ASSESon 2024 CASE MGT INIT ASSES Normal [facility] CBC panel Auto (Bld)on 10-07 Erythrocyte distribution width (RBC) [Ratio] 15.7 % High 11.5-15.0 [facility] Comment on above: Order Comment: Speci men Type: BLOOD SPECIMENOrdering Facility: [facility] Address: [address] [place] [address] Performed By: #### 5 8410-2 ####[facility] LABCLIA [id number] [place] [address] [place] Hematocrit (Bld) [Volume fraction] 33.9 % Low 36.0-46.0 [facility] Comment on above: Order Comment: Speci men Type: BLOOD SPECIMENOrdering Facility: [facility] Address: [address] [place] [address] Performed By: #### 5 8410-2 ####[facility] LABCLIA [id number] [place] [address] [place] Hemoglobin (Bld) [Mass/Vol] 10.7 g/dL Low 11.5-15.5 [facility] Comment on above: Order Comment: Speci men Type: BLOOD SPECIMENOrdering Facility: [facility] Address: [address] [place] [address] Performed By: #### 5 8410-2 ####[facility] LABIA [id number] [place] [address] [place] MCH (RBC) [Entitic mass] 25.4 pg Low 26.0-34.0 [facility] Comment on above: Order Comment: Speci men Type: BLOOD SPECIMENOrdering Facility: [facility] Address: [address] [place] [address] Performed By: #### 5 8410-2 ####[facility] LABIA [id number] [place] [address] [place] MCHC (RBC) [Mass/Vol] 31.6 g/dL Normal 30.5-36.0 [facility] Comment on above: Order Comment: Speci men Type: BLOOD SPECIMENOrdering Facility: [facility] Address: [address] [place] [address] Performed By: #### 5 8410-2 ####[facility] LABIA [id number] [place] [address] [place] MCV (RBC) [Entitic vol] 80.5 fL Normal 80.0-100.0 [facility] Comment on above: Order Comment: Speci men Type: BLOOD SPECIMENOrdering Facility: [facility] Address: [address] [place] [address] Performed By: #### 5 8410-2 ####[facility] LABIA [id number] [place] [address] [place] Nucleated RBC (Bld) [#/Vol] 10*3/uL Normal <0.01 [facility] Comment on above: Order Comment: Speci men Type: BLOOD SPECIMENOrdering Facility: [facility] Address: [address] [place] [address] Performed By: #### 5 8410-2 ####[facility] LABCLIA [id number] [place] [address] [place] Platelet mean volume (Bld) [Entitic vol] 9.5 fL Normal 9.0-12.7 [facility] Comment on above: Order Comment: Speci men Type: BLOOD SPECIMENOrdering Facility: [facility] Address: [address] [place] [address] Performed By: #### 5 8410-2 ####[facility] LABCL[facility] [id number] [place] [address] [place] Platelets (Bld) [#/Vol] 167 10*3/uL Normal 150-400 [facility] Comment on above: Order Comment: Speci men Type: BLOOD SPECIMENOrdering Facility: [facility] Address: [address] [place] [address] Performed By: #### 5 8410-2 ####[facility] LABCL[facility] [id number] [place] [address] [place] RBC (Bld) [#/Vol] 4.21 10*6/uL Normal 3.90-5.20 [facility] Comment on above: Order Comment: Speci men Type: BLOOD SPECIMENOrdering Facility: [facility] Address: [address] [place] [address] Performed By: #### 5 8410-2 ####[facility] LABCLIA [id number] [place] [address] [place] WBC (Bld) [#/Vol] 3.94 10*3/uL Normal 3.70-11.00 [facility] Comment on above: Order Comment: Speci men Type: BLOOD SPECIMENOrdering Facility: [facility] Address: [address] [place] [address] Performed By: #### 5 8410-2 ####[facility] LABCL[facility] [id number] [place] [address] [place] CONSULTon 10-07-2024 CONSULT Normal [facility] ECG COMPLETEon 10-07-2024 ECG COMPLETE Normal [facility] Ethanol SerPl-mCncon 025 Ethanol [Mass/Vol] mg/dL Normal <11 [facility] Comment on above: Order Comment: Speci men Type: BLOOD SPECIMENOrdering Facility: [facility] Address: [address] [place] [address] Performed By: #### 5 643-2 ####[facility] LABCL[facility] [id number] [place] [address] [place] Magnesium [facility] 10-07 Magnesium [Mass/Vol] 1.6 mg/dL Low 1.7-2.3 [facility] Comment on above: Order Comment: Speci men Type: BLOOD SPECIMENOrdering Facility: [facility] Address: [address] [place] [address] Performed By: #### 2 777-1, , 33987-1 ####[facility] LABIA [id number] [place] [address] [place] NURSING PROGon 10-07-2024 NURSING PROG Normal [facility] NUTRITIONon 10-07-2024 NUTRITION Normal [facility] Phosphate SerPl-ncon 10-07 Phosphate [Mass/Vol] 3.8 mg/dL Normal 2.7-4.8 [facility] Comment on above: Order Comment: Speci men Type: BLOOD SPECIMENOrdering Facility: [facility] Address: [address] [place] [address] Performed By: #### 2 777-1, 33590-3, ####[facility] LABCL[facility] [id number] [place] [id number] [place] CBC W Auto Differential pane l (Bld)on 10-06-2024 Basophils (Bld) [#/Vol] 10*3/uL Normal <0.11 [facility] Comment on above: Order Comment: Speci men Type: BLOOD SPECIMENOrdering Facility: [facility] Address: [address] [place] [address] Performed By: #### 5 7021-8 ####[facility] LABCLIA [id number] [facility] [address] [place] Basophils/100 WBC (Bld) 0.4 % Normal [facility] Comment on above: Order Comment: Speci men Type: BLOOD SPECIMENOrdering Facility: [facility] Address: [address] [place] [address] Performed By: #### 5 7021-8 ####[facility]CL[facility] [id number] [place] [address] [place] Differential cell count method Nom (Bld) Auto Normal [facility] Comment on above: Order Comment: Speci men Type: BLOOD SPECIMENOrdering Facility: [facility] Address: [address] [place] [address] Performed By: #### 5 7021-8 ####[facility]CL[facility] [id number] [place] [address] [place] Eosinophils (Bld) [#/Vol] 10*3/uL Normal <0.46 [facility] Comment on above: Order Comment: Speci men Type: BLOOD SPECIMENOrdering Facility: [facility] Address: [address] [place] [address] Performed By: #### 5 7021-8 ####[facility]CL[facility] [id number] [place] [address] [place] Eosinophils/100 WBC (Bld) 0.2 % Normal [facility] Comment on above: Order Comment: Speci men Type: BLOOD SPECIMENOrdering Facility: [facility] Address: [address] [place] [address] Performed By: #### 5 7021-8 ####[facility] [id number] [place] [address] [place] Erythrocyte distribution width (RBC) [Ratio] 15.6 % High 11.5-15.0 [facility] Comment on above: Order Comment: Speci men Type: BLOOD SPECIMENOrdering Facility: [facility] Address: [address] [place] [address] Performed By: #### 5 7021-8 ####[facility] LABIA [id number] [place] [address] [place] Hematocrit (Bld) [Volume fraction] 38.2 % Normal 36.0-46.0 [facility] Comment on above: Order Comment: Speci men Type: BLOOD SPECIMENOrdering Facility: [facility] Address: [address] [place] [address] Performed By: #### 5 7021-8 ####[facility] [id number] [place] [address] [place] Hemoglobin (Bld) [Mass/Vol] 12.4 g/dL Normal 11.5-15.5 [facility] Comment on above: Order Comment: Speci men Type: BLOOD SPECIMENOrdering Facility: [facility] Address: [address] [place] [address] Performed By: #### 5 7021-8 ####[facility] [id number] [place] [address] [place] Immature granulocytes (Bld) [#/Vol] 10*3/uL Normal <0.10 [facility] Comment on above: Order Comment: Speci men Type: BLOOD SPECIMENOrdering Facility: [facility] Address: [address] [place] [address] Performed By: #### 5 7021-8 ####[facility] LABIA [id number] [place] [address] [place] Immature granulocytes/100 WBC (Bld) 0.4 % Normal [facility] Comment on above: Order Comment: Speci men Type: BLOOD SPECIMENOrdering Facility: [facility] Address: [address] [place] [address] Performed By: #### 5 7021-8 ####[facility] [id number] [place] [address] [place] Lymphocytes (Bld) [#/Vol] 0.21 10*3/uL Low 1.00-4.00 [facility] Comment on above: Order Comment: Speci men Type: BLOOD SPECIMENOrdering Facility: [facility] Address: [address] [place] [address] Performed By: #### 5 7021-8 ####[facility] [id number] [place] [address] [place] Lymphocytes/100 WBC (Bld) 4.4 % Normal [facility] Comment on above: Order Comment: Speci men Type: BLOOD SPECIMENOrdering Facility: [facility] Address: [address] [place] [address] Performed By: #### 5 7021-8 ####[facility] [id number] [place] [address] [place] MCH (RBC) [Entitic mass] 25.6 pg Low 26.0-34.0 [facility] Comment on above: Order Comment: Speci men Type: BLOOD SPECIMENOrdering Facility: [facility] Address: [address] [place] [address] Performed By: #### 5 7021-8 ####[facility] [id number] [place] [address] [place] MCHC (RBC) [Mass/Vol] 32.5 g/dL Normal 30.5-36.0 [facility] Comment on above: Order Comment: Speci men Type: BLOOD SPECIMENOrdering Facility: [facility] Address: [address] [place] [address] Performed By: #### 5 7021-8 ####[facility] [id number] [place] [address] [place] MCV (RBC) [Entitic vol] 78.9 fL Low 80.0-100.0 [facility] Comment on above: Order Comment: Speci men Type: BLOOD SPECIMENOrdering Facility: [facility] Address: [address] [place] [address] Performed By: #### 5 7021-8 ####[facility] [id number] [place] [address] [place] Monocytes (Bld) [#/Vol] 0.58 10*3/uL Normal <0.87 [facility] Comment on above: Order Comment: Speci men Type: BLOOD SPECIMENOrdering Facility: [facility] Address: [address] [place] [address] Performed By: #### 5 7021-8 ####[facility]IA [id number] [place] [address] [place] Monocytes/100 WBC (Bld) 12.1 % Normal [facility] Comment on above: Order Comment: Speci men Type: BLOOD SPECIMENOrdering Facility: [facility] Address: [address] [place] [address] Performed By: #### 5 7021-8 ####[facility] [id number] [place] [address] [place] Neutrophils (Bld) [#/Vol] 3.95 10*3/uL Normal 1.45-7.50 [facility] Comment on above: Order Comment: Speci men Type: BLOOD SPECIMENOrdering Facility: [facility] Address: [address] [place] [address] Performed By: #### 5 7021-8 ####[facility]IA [id number] [place] [address] [place] Neutrophils/100 WBC (Bld) 82.5 % Normal [facility] Comment on above: Order Comment: Speci men Type: BLOOD SPECIMENOrdering Facility: [facility] Address: [address] [place] [address] Performed By: #### 5 7021-8 ####[facility] [id number] [place] [address] [place] Nucleated RBC (Bld) [#/Vol] 10*3/uL Normal <0.01 [facility] Comment on above: Order Comment: Speci men Type: BLOOD SPECIMENOrdering Facility: [facility] Address: [address] [place] [address] Performed By: #### 5 7021-8 ####[facility] [id number] [place] [address] [place] Nucleated RBC/100 WBC (Bld) [Ratio] 0.0 /100 WBC Normal [facility] Comment on above: Order Comment: Speci men Type: BLOOD SPECIMENOrdering Facility: [facility] Address: [address] [place] [address] Performed By: #### 5 7021-8 ####[facility] [id number] [place] [address] [place] Platelet mean volume (Bld) [Entitic vol] 9.3 fL Normal 9.0-12.7 [facility] Comment on above: Order Comment: Speci men Type: BLOOD SPECIMENOrdering Facility: [facility] Address: [address] [place] [address] Performed By: #### 5 7021-8 ####[facility] [id number] [place] [address] [place] Platelets (Bld) [#/Vol] 218 10*3/uL Normal 150-400 [facility] Comment on above: Order Comment: Speci men Type: BLOOD SPECIMENOrdering Facility: [facility] Address: [address] [place] [address] Performed By: #### 5 7021-8 ####[facility] [id number] [place] [address] [place] RBC (Bld) [#/Vol] 4.84 10*6/uL Normal 3.90-5.20 [facility] Comment on above: Order Comment: Speci men Type: BLOOD SPECIMENOrdering Facility: [facility] Address: [address] [place] [address] Performed By: #### 5 7021-8 ####[facility] [id number] [place] [address] [place] WBC (Bld) [#/Vol] 4.79 10*3/uL Normal 3.70-11.00 [facility] Comment on above: Order Comment: Speci men Type: BLOOD SPECIMENOrdering Facility: [facility] Address: [address] [place] [address] Performed By: #### 5 7021-8 ####[facility]IA [id number] [place] [address] [place] CT ABD/PEL W IVCONon 025 CT ABD/PEL W IVCON Normal [facility] Comprehensive metabolic 2000 panelon 10-06-2024 Albumin [Mass/Vol] 4.0 g/dL Normal 3.9-4.9 [facility] Comment on above: Order Comment: Speci men Type: BLOOD SPECIMENOrdering Facility: [facility] Address: [address] [place] [address] Performed By: #### 3 040-3, 21632-8 ####[facility]IA [id number] [place] [address] [place] ALP [Catalytic activity/Vol] 59 U/L Normal 34-123 [facility] Comment on above: Order Comment: Speci men Type: BLOOD SPECIMENOrdering Facility: [facility] Address: [address] [place] [address] Performed By: #### 3 040-3, 53377-8 ####[facility] [id number] [place] [address] [place] ALT [Catalytic activity/Vol] 26 U/L Normal 7-38 [facility] Comment on above: Order Comment: Speci men Type: BLOOD SPECIMENOrdering Facility: [facility] Address: [address] [place] [address] Performed By: #### 3 040-3, 53221-4 ####[facility] [id number] [place] [address] [place] Anion gap [Moles/Vol] 16 mmol/L High 8-15 [facility] Comment on above: Order Comment: Speci men Type: BLOOD SPECIMENOrdering Facility: [facility] Address: [address] [place] [address] Performed By: #### 3 -3, 08962-3 ####[facility] [id number] [place] [address] [place] AST [Catalytic activity/Vol] 19 U/L Normal 13-35 [facility] Comment on above: Order Comment: Speci men Type: BLOOD SPECIMENOrdering Facility: [facility] Address: [address] [place] [address] Performed By: #### 3 -3, 69572-2 ####[facility] [id number] [place] [address] [place] Bilirubin [Mass/Vol] 0.3 mg/dL Normal 0.2-1.3 [facility] Comment on above: Order Comment: Speci men Type: BLOOD SPECIMENOrdering Facility: [facility] Address: [address] [place] [address] Performed By: #### 3 040-3, 39397-0 ####[facility] [id number] [place] [address] [place] Calcium [Mass/Vol] 9.0 mg/dL Normal 8.5-10.2 [facility] Comment on above: Order Comment: Speci men Type: BLOOD SPECIMENOrdering Facility: [facility] Address: [address] [place] [address] Performed By: #### 3 040-3, 19575-5 ####[facility] [id number] [place] [address] [place] Chloride [Moles/Vol] 96 mmol/L Low 98-107 [facility] Comment on above: Order Comment: Speci men Type: BLOOD SPECIMENOrdering Facility: [facility] Address: [address] [place] [address] Performed By: #### 3 040-3, 79064-7 ####[facility] [id number] [place] [address] [place] CO2 [Moles/Vol] 24 mmol/L Normal 22-30 [facility] Comment on above: Order Comment: Speci men Type: BLOOD SPECIMENOrdering Facility: [facility] Address: [address] [place] [address] Performed By: #### 3 040-3, 66289-0 ####[facility] [id number] [place] [address] [place] Creatinine [Mass/Vol] 0.48 mg/dL Low 0.58-0.96 [facility] Comment on above: Order Comment: Speci men Type: BLOOD SPECIMENOrdering Facility: [facility] Address: [address] [place] [address] Performed By: #### 3 040-3, 46047-2 ####[facility] [id number] [place] [address] [place] Creatinine and Glomerular filtration rate.predicted panel (S/P/Bld) 136 mL/min/1.73m??? Normal >=60 [facility] Comment on above: Order Comment: Alex mcgovern Type: BLOOD SPECIMENOrdering Facility: [facility] Address: [address] [place] [address] Result Comment: Cinthya mated Glomerular Filtration Rate (eGFR) is calculated using the 2020 CKD-EPI creatinine equation. This equation utilizes serum creatinine, sex, and age as parameters. The creatinine assay has traceable calibration to isotope dilution-mass spectrometry. Refer to KDIGO guidelines for clinical interpretation. In patients with unstable renal function, e.g. those with acute kidney injury, the eGFR may not accurately reflect actual GFR. Performed By: #### 3 040-3, 66423-1 ####[facility] [id number] [place] [address] [place] Glucose [Mass/Vol] 96 mg/dL Normal 74-99 [facility] Comment on above: Order Comment: Alex mcgovern Type: BLOOD SPECIMENOrdering Facility: [facility] Address: [address] [place] [address] Result Comment: The [place] [employer] (ADA) provides guidance for cutoff values for fasting glucose and random glucose. The ADA defines fasting as no caloric intake for at least 8 hours. Fasting plasma glucose results between 100 to 125 mg/dL indicate increased risk for diabetes (prediabetes).Fasting plasma glucose results greater than or equal to 126 mg/dL meet the criteria for diagnosis of diabetes. In the absence of unequivocal hyperglycemia, results should be confirmed by repeat testing. In a patient with classic symptoms of hyperglycemia or hyperglycemic crisis, random plasma glucose results greater than or equal to 200 mg/dL meet the criteria for diagnosis of diabetes.Reference: Standards of Medical Care in Diabetes 2016, [place] [employer]. Diabetes Care. 2016.39(Suppl 1). Performed By: #### 3 040-3, 70650-3 ####[facility] [id number] [place] [address] [place] Potassium [Moles/Vol] 3.5 mmol/L Low 3.7-5.1 [facility] Comment on above: Order Comment: Speci men Type: BLOOD SPECIMENOrdering Facility: [facility] Address: [address] [place], [place] [address] Performed By: #### 3 040-3, 77976-2 ####[facility] [id number] [place] [id number] [place] Protein [Mass/Vol] 7.0 g/dL Normal 6.3-8.0 [facility] Comment on above: Order Comment: Speci men Type: BLOOD SPECIMENOrdering Facility: [facility] Address: [address] [place] [address] Performed By: #### 3 040-3, 84569-7 ####[facility] [id number] [place] [address] [place] Sodium [Moles/Vol] 136 mmol/L Normal 136-144 [facility] Comment on above: Order Comment: Speci men Type: BLOOD SPECIMENOrdering Facility: [facility] Address: [address] [place] [address] Performed By: #### 3 040-3, 40037-6 ####[facility] [id number] [place] [address] [place] Urea nitrogen [Mass/Vol] mg/dL Low 7-21 [facility] Comment on above: Order Comment: Speci men Type: BLOOD SPECIMENOrdering Facility: [facility] Address: [address] [place] [address] Performed By: #### 3 040-3, 12854-1 ####[facility] [id number] [place] [id number] [place] ED PROV NOTEon 10-06-2024 ED PROV NOTE Normal [facility] ED Triage Noteon 10-06-2024 ED Triage Note Normal [facility] HCG Preg Ur Qlon 10-06-2024 HCG ( test) Ql (U) Negative Normal Negative [facility] Comment on above: Order Comment: Speci men Type: URINE SPECIMENOrdering Facility: [facility] Address: [address] [place] [address] Result Comment: This test is intended to aid in the early detection of . Very dilute urine samples, as indicated by a low specific gravity, may not contain lead customer service representative levels of hCG. This test detects intact hCG only. This test does not reliably detect hCG degradation products, including free-beta subunit and beta-core fragment. Therefore, this test may show reduced reactivity in urine after 8 weeks gestation. A number of conditions other than , including trophoblastic disease and certain non-trophoblastic neoplasms cause elevated levels of hCG. As with any assay employing mouse antibodies, the possibility exists for interference by human anti-mouse antibodies (HAMA) in the specimen. The test provides a presumptive diagnosis for . Performed By: #### 2 106-3 ####[facility]IA [id number] [place] [address] [place] HISTORY PHYSICALon HISTORY PHYSICAL Normal [facility] Lipase SerPl-cCncon 10-06-19 25 Lipase [Catalytic activity/Vol] 86 U/L High 16-61 [facility] Comment on above: Order Comment: Speci men Type: BLOOD SPECIMENOrdering Facility: [facility] Address: [address] [place] [address] Performed By: #### 3 040-3, 11729-0 ####[facility] [id number] [place] [address] [place] SEPSIS LACTATE W/ REFLEX (IN ITIAL)on 10-06-2024 Lactate [Moles/Vol] 1.1 mmol/L Normal <=2.0 [facility] Comment on above: Order Comment: Speci men Type: BLOOD SPECIMENOrdering Facility: [facility] Address: [address] [place] [address] Performed By: #### S LACTR ####[facility]IA [id number] [place] [address] [place] TOXICOLOGY SCREEN, ROUTINE U RINEon 10-06-2024 Amphetamines Confirm (U) [Mass/Vol] Positive Abnormal Negative [facility] Comment on above: Order Comment: Speci men Type: URINE SPECIMENOrdering Facility: [facility] Address: [address] [place] [address] Result Comment: Cuto ff threshold at 1000 ng/mL. Performed By: #### U TOX2 ####[facility]CL[facility] [id number] [place] [address] [place] BARBITURATES, URINE Negative Normal Negative [facility] Comment on above: Order Comment: Speci men Type: URINE SPECIMENOrdering Facility: [facility] Address: [address] [place] [address] Result Comment: Cuto ff threshold at 200 ng/mL. Performed By: #### U TOX2 ####[facility]CL[facility] [id number] [place] [address] [place] BENZODIAZEPINES, UR Negative Normal Negative [facility] Comment on above: Order Comment: Speci men Type: URINE SPECIMENOrdering Facility: [facility] Address: [address] [place] [address] Result Comment: Cuto ff threshold at 200 ng/mL. Performed By: #### U TOX2 ####[facility]CL[facility] [id number] [place] [address] [place] Cannabinoids Screen Ql (U) Positive Abnormal Negative [facility] Comment on above: Order Comment: Speci men Type: URINE SPECIMENOrdering Facility: [facility] Address: [address] [place] [address] Result Comment: Cuto ff threshold at 50 ng/mL. Performed By: #### U TOX2 ####[facility] [id number] [place] [address] [place] Cocaine Ql (U) Negative Normal Negative [facility] Comment on above: Order Comment: Speci men Type: URINE SPECIMENOrdering Facility: [facility] Address: [address] [place] [address] Result Comment: Cuto ff threshold at 300 ng/mL. Performed By: #### U TOX2 ####[facility] [id number] [place] [address] [place] Ethanol (U) [Mass/Vol] <11 Normal <11 [facility] Comment on above: Order Comment: Speci men Type: URINE SPECIMENOrdering Facility: [facility] Address: [address] [place] [address] Performed By: #### U TOX2 ####[facility] [id number] [place] [address] [place] Opiates Screen Ql (U) Positive Abnormal Negative [facility] Comment on above: Order Comment: Speci men Type: URINE SPECIMENOrdering Facility: [facility] Address: [address] [place] [address] Result Comment: Cuto ff threshold at 300 ng/mL. Performed By: #### U TOX2 ####[facility] [id number] [place] [address] [place] oxyCODONE cutoff Screen (U) [Mass/Vol] Negative Normal Negative [facility] Comment on above: Order Comment: Speci men Type: URINE SPECIMENOrdering Facility: [facility] Address: [address] [place] [address] Result Comment: Cuto ff threshold at 100 ng/mL. Performed By: #### U TOX2 ####[facility] [id number] [place] [address] [place] Phencyclidine Ql (U) Negative Normal Negative [facility] Comment on above: Order Comment: Speci men Type: URINE SPECIMENOrdering Facility: [facility] Address: [address] [place] [address] Result Comment: Cuto ff threshold at 25 ng/mL. Performed By: #### U TOX2 ####[facility] [id number] [place] Urinalysis complete panel (U )on 10-06-2024 Bacteria LM.HPF (Urine sed) [#/Area] Negative Normal Negative [facility] Comment on above: Order Comment: Speci men Type: URINE SPECIMENOrdering Facility: [facility] Address: [address] [place] [address] Performed By: #### 2 4356-8 ####[facility] [id number] [place] [address] [place] Bilirubin Ql (U) Negative Normal Negative [facility] Comment on above: Order Comment: Speci men Type: URINE SPECIMENOrdering Facility: [facility] Address: [address] [place] [address] Performed By: #### 2 4356-8 ####[facility] [id number] [place] [address] [place] Clarity (Unsp spec) Clear Normal Clear [facility] Comment on above: Order Comment: Speci men Type: URINE SPECIMENOrdering Facility: [facility] Address: [address] [place] [address] Performed By: #### 2 4356-8 ####[facility] [id number] [place] [address] [place] Color (U) Yellow Normal Yellow [facility] Comment on above: Order Comment: Speci men Type: URINE SPECIMENOrdering Facility: [facility] Address: [address] [place] [address] Performed By: #### 2 4356-8 ####[facility] [id number] [place] [address] [place] Epithelial cells LM.HPF (Urine sed) [#/Area] None Seen Normal [facility] Comment on above: Order Comment: Speci men Type: URINE SPECIMENOrdering Facility: [facility] Address: [address] [place] [address] Performed By: #### 2 4356-8 ####[facility] [id number] [place] [address] [place] Glucose Test strip (U) [Mass/Vol] Negative Normal Negative [facility] Comment on above: Order Comment: Speci men Type: URINE SPECIMENOrdering Facility: [facility] Address: [address] [place] [address] Performed By: #### 2 4356-8 ####[facility] [id number] [place] [address] [place] Hemoglobin Ql (U) Negative Normal Negative [facility] Comment on above: Order Comment: Speci men Type: URINE SPECIMENOrdering Facility: [facility] Address: [address] [place] [address] Performed By: #### 2 4356-8 ####[facility] [id number] [place] [address] [place] Hyaline casts (Urine sed) [#/Area] 0 /[LPF] Normal 0 /LPF [facility] Comment on above: Order Comment: Speci men Type: URINE SPECIMENOrdering Facility: [facility] Address: [address] [place] [address] Performed By: #### 2 4356-8 ####[facility] [id number] [place] [address] [place] Ketones Ql (U) 4+ Abnormal Negative [facility] Comment on above: Order Comment: Speci men Type: URINE SPECIMENOrdering Facility: [facility] Address: [address] [place] [address] Performed By: #### 2 4356-8 ####[facility] [id number] [place] [address] [place] Leukocyte esterase Test strip Ql (U) Negative Normal Negative [facility] Comment on above: Order Comment: Speci men Type: URINE SPECIMENOrdering Facility: [facility] Address: [address] [place] [address] Performed By: #### 2 4356-8 ####[facility] [id number] [place] [address] [place] Nitrite Ql (U) Negative Normal Negative [facility] Comment on above: Order Comment: Speci men Type: URINE SPECIMENOrdering Facility: [facility] Address: [address] [place] [address] Performed By: #### 2 4356-8 ####[facility] [id number] [place] [address] [place] pH (U) 6.5 [pH] Normal <8.5 [facility] Comment on above: Order Comment: Speci men Type: URINE SPECIMENOrdering Facility: [facility] Address: [address] [place] [address] Performed By: #### 2 4356-8 ####[facility] [id number] [place] [address] [place] Protein (U) [Mass/Vol] Trace Abnormal Negative [facility] Comment on above: Order Comment: Speci men Type: URINE SPECIMENOrdering Facility: [facility] Address: [address] [place] [address] Performed By: #### 2 4356-8 ####[facility] LABCLIA [id number] [place] [address] [place] RBC LM.HPF (Urine sed) [#/Area] 0-2 /HPF Normal 0-2 /HPF [facility] Comment on above: Order Comment: Speci men Type: URINE SPECIMENOrdering Facility: [facility] Address: [address] [place] [address] Performed By: #### 2 4356-8 ####[facility] LABIA [id number] [place] [address] [place] Specific gravity (U) [Rel density] >1.045 High 1.005-1.03 0 [facility] Comment on above: Order Comment: Speci men Type: URINE SPECIMENOrdering Facility: [facility] Address: [address] [place] [address] Performed By: #### 2 4356-8 ####[facility]CLIA [id number] [place] [address] [place] Urobilinogen Ql (U) 0.2 EU/dL Normal 0.2-1.0 EU/dL [facility] Comment on above: Order Comment: Speci men Type: URINE SPECIMENOrdering Facility: [facility] Address: [address] [place] [address] Performed By: #### 2 4356-8 ####[facility] LABCLIA [id number] [place] [address] [place] WBC LM.HPF (Urine sed) [#/Area] 0-5 /HPF Normal 0-5 /HPF [facility] Comment on above: Order Comment: Speci men Type: URINE SPECIMENOrdering Facility: [facility] Address: [address] [place] [address] Performed By: #### 2 4356-8 ####[facility]CLIA [id number] [place] [address] [place] XR CHEST 1V FRONTAL PORTon 0 10-06-2024 XR CHEST 1V FRONTAL PORT Normal [facility] BMP with eGFR DAILYon 2024 AGE 1 years Normal [facility] Comment on above: Performed By: #### 2 12529 #### [facility],[address] [place], [place] [id number] Anion gap [Moles/Vol] 16 mmol/L Normal 10 - 20 [facility] Comment on above: Performed By: #### 2 11554 #### [facility],[address],[place] [address] BMP with eGFR DAILY Normal [facility] Comment on above: Result Comment: BASI C METABOLIC PANEL Performed By: #### 2 23198 #### [facility],[address] [place] [address] 87855 Calcium [Mass/Vol] 8.4 mg/dL Low 8.5 - 10.1 [facility] Comment on above: Result Comment: { CA LLED TO N/A { READ BACK BY N/A Performed By: #### 2 93746 #### [facility],[address] [place] [address] 72021 Chloride [Moles/Vol] 102 mmol/L Normal 98 - 107 [facility] Comment on above: Performed By: #### 2 44760 #### [facility],[address] [place] [address] 66556 CO2 [Moles/Vol] 23.3 mmol/L Normal 21.0 - 32.0 [facility] Comment on above: Performed By: #### 2 16419 #### [facility],[address] [place] [address] 66782 Creatinine [Mass/Vol] 0.58 mg/dL Normal 0.55 - 1.02 [facility] Comment on above: Performed By: #### 2 83761 #### [facility],[address] [place] [address] 00378 eGFR 0 ML/MINUTE Low 60 - 999 [facility] Comment on above: Performed By: #### 2 43589 #### [facility],[address] [place] [address] 12426 eGFR(AA) 0 ML/MINUTE Low 60 - 999 [facility] Comment on above: Result Comment: ACCO RDING TO THE NATIONAL KIDNEY DISEASE EDUCATION PROGRAM(NKDE), A NORMAL eGFR IS A VALUE GREATER THAN OR EQUAL TO 60 ML/MIN/1.73 SQ METERS. CHRONIC KIDNEY DISEASE: <60mL/MIN/1.73 SQ METERS KIDNEY FAILURE: <15mL/MIN/1.73 SQ METERS THIS TEST SHOULD ONLY BE USED FOR PATIENTS 18 YEARS OF AGE AND OLDER. Performed By: #### 2 14173 #### [facility],[address] [place] [address] 36126 Glucose [Mass/Vol] 71 mg/dL Low 74 - 106 [facility] Comment on above: Performed By: #### 2 49250 #### [facility],[address] [place] [address] 04765 Potassium [Moles/Vol] 3.6 mmol/L Normal 3.5 - 5.1 [facility] Comment on above: Performed By: #### 2 91270 #### [facility],[address] [place] [address] 33239 Sodium [Moles/Vol] 138 mmol/L Normal 136 - 145 [facility] Comment on above: Performed By: #### 2 34856 #### [facility],[address] [place] [address] 92334 Urea nitrogen [Mass/Vol] 0 mg/dL Low 7 - 18 [facility] Comment on above: Performed By: #### 2 89734 #### [facility],[address] [place] [address] [place] [address] BMP with eGFR DAILYon 2024 AGE 24 years Normal [facility] Comment on above: Performed By: #### 2 10143 #### [facility],[address] [place] [address] [place] [address] Anion gap [Moles/Vol] 18 mmol/L Normal 10 - 20 [facility] Comment on above: Performed By: #### 2 73264 #### [facility],[address] [place] [address] [place] [address] BMP with eGFR DAILY Normal [facility] Comment on above: Result Comment: BASI C METABOLIC PANEL Performed By: #### 2 39494 #### [facility],[address] [place] [address] 71473 Calcium [Mass/Vol] 8.6 mg/dL Normal 8.5 - 10.1 [facility] Comment on above: Performed By: #### 2 39813 #### [facility],[address] [place] [address] 81338 Chloride [Moles/Vol] 104 mmol/L Normal 98 - 107 [facility] Comment on above: Performed By: #### 2 58951 #### [facility],[address] [place], [place] [phone] CO2 [Moles/Vol] 22.4 mmol/L Normal 21.0 - 32.0 [facility] Comment on above: Performed By: #### 2 73289 #### [facility],[address] [place] [address] Creatinine [Mass/Vol] 0.57 mg/dL Normal 0.55 - 1.02 [facility] Comment on above: Performed By: #### 2 19229 #### [facility],[address] [place] [address] GFR/1.73 sq M.predicted among non-blacks MDRD (S/P/Bld) [Vol rate/Area] mL/min/{1.73_m2} Normal 60 - 999 [facility] Comment on above: Performed By: #### 2 93415 #### [facility],[address] [place], [place] [phone] Result Comment: ACCO RDING TO THE NATIONAL KIDNEY DISEASE EDUCATION PROGRAM(NKDE), A NORMAL eGFR IS A VALUE GREATER THAN OR EQUAL TO 60 ML/MIN/1.73 SQ METERS. CHRONIC KIDNEY DISEASE: <60mL/MIN/1.73 SQ METERS KIDNEY FAILURE: <15mL/MIN/1.73 SQ METERS THIS TEST SHOULD ONLY BE USED FOR PATIENTS 18 YEARS OF AGE AND OLDER. Glucose [Mass/Vol] 78 mg/dL Normal 74 - 106 [facility] Comment on above: Performed By: #### 2 08596 #### [facility],[address] [place] [address] 96251 Potassium [Moles/Vol] 3.1 mmol/L Low 3.5 - 5.1 [facility] Comment on above: Performed By: #### 2 85933 #### [facility],[address] [place] [address] 90973 Sodium [Moles/Vol] 141 mmol/L Normal 136 - 145 [facility] Comment on above: Performed By: #### 2 91328 #### [facility],[address] [place] [address] Urea nitrogen [Mass/Vol] 1 mg/dL Low 7 - 18 [facility] Comment on above: Result Comment: ALL RESULTS REPEATED Performed By: #### 2 84720 #### [facility],[address] [place] [address] CBC + DIFF DAILYon 5 Baso # 0.02 x10EE3/UL Normal 0.00 - 0.10 [facility] Comment on above: Performed By: #### 2 12343 #### [facility],[address] [place] [address] 50277 Basophils/100 WBC (Bld) 0.3 % Normal 0.0 - 2.0 [facility] Comment on above: Performed By: #### 2 24534 #### [facility],[address] [place], [place] [phone] CBC + DIFF DAILY Normal [facility] Comment on above: Result Comment: CBC- COMPLETE BLOOD COUNT Performed By: #### 2 15549 #### [facility],[address] [place] [address] 10697 EO # 0.06 x10EE3/UL Normal 0.00 - 0.50 [facility] Comment on above: Performed By: #### 2 87512 #### [facility],[address] [place] [address] 95252 Eosinophils/100 WBC (Bld) 1.2 % Normal 0.0 - 7.0 [facility] Comment on above: Performed By: #### 2 63614 #### [facility],[address] [place], [place] [phone] Erythrocyte distribution width (RBC) [Ratio] 15.9 % High 12.0 - 15.6 [facility] Comment on above: Performed By: #### 2 56259 #### [facility],[address] [place] [address] Hematocrit (Bld) [Volume fraction] 36.5 % Normal 34.0 - 46.0 [facility] Comment on above: Performed By: #### 2 64237 #### [facility],[address] [place] [address] Hemoglobin (Bld) [Mass/Vol] 11.6 g/dL Low 12.0 - 16.0 [facility] Comment on above: Result Comment: VERI FIED BY REPEAT TESTING Performed By: #### 2 26402 #### [facility],[address] [place] [address] Lymph # 1.31 x10EE3/UL Normal 0.80 - 2.80 [facility] Comment on above: Performed By: #### 2 23902 #### [facility],[address] [place] [address] Lymphocytes/100 WBC (Bld) 27.5 % Normal 20.0 - 45.0 [facility] Comment on above: Performed By: #### 2 77283 #### [facility],[address] [place] [address] MANUAL DIFF N/A Normal [facility] Comment on above: Performed By: #### 2 10960 #### [facility],[address] [place] [address] MCH (RBC) [Entitic mass] 25 pg Low 27 - 33 [facility] Comment on above: Performed By: #### 2 81175 #### [facility],[address] [place] [address] MCHC 32 X10 3 Normal 32 - 36 [facility] Comment on above: Performed By: #### 2 33975 #### [facility],[address] [place], [place] [address] MCV (RBC) [Entitic vol] 80 fL Normal 80 - 99 [facility] Comment on above: Performed By: #### 2 93575 #### [facility],[address] [place] [address] [place] # 0.48 x10EE3/UL Normal 0.20 - 1.00 [facility] Comment on above: Performed By: #### 2 02014 #### [facility],[address] [place] [address] MONOS % 10.0 % Normal 0.0 - 10.0 [facility] Comment on above: Performed By: #### 2 51820 #### [facility],[address] [place] [address] Morphology Arley (Bld) [Interp] N/A Normal [facility] Comment on above: Performed By: #### 2 41019 #### [facility],[address] [place] [address] Neut # 2.91 x10EE3/UL Normal 1.50 - 7.10 [facility] Comment on above: Performed By: #### 2 74662 #### [facility],[address] [place] [address] Neutrophils/100 WBC (Bld) 61.0 % Normal 46.0 - 76.0 [facility] Comment on above: Performed By: #### 2 43568 #### [facility],[address] [place] [address] PLATELET 255 x10EE3/UL Normal 150 - 450 [facility] Comment on above: Performed By: #### 2 81126 #### [facility],[address] [place] [address] Platelet mean volume (Bld) [Entitic vol] 7.9 fL Normal 6.6 - 10.5 [facility] Comment on above: Result Comment: AUTO MATED DIFFERENTIAL Performed By: #### 2 94520 #### [facility],[address] [place] [address] 93161 RBC 4.57 x 10EE6/UL Normal 4.10 - 5.30 [facility] Comment on above: Performed By: #### 2 88868 #### [facility],[address] [place] [address] 89184 WBC 4.8 x 10EE3/UL Normal 4.5 - 10.8 [facility] Comment on above: Performed By: #### 2 92615 #### [facility],[address] [place], [place] [phone] DRUG SCREEN URINE MEDICon AMPHETAMINES Negative Normal [facility] Comment on above: Performed By: #### 2 47827 #### [facility],[address] [place], [place] [phone] B-DIAZEPINES Negative Normal [facility] Comment on above: Performed By: #### 2 46542 #### [facility],[address] [place], [place] [phone] BARBITURATES Negative Normal [facility] Comment on above: Performed By: #### 2 65935 #### [facility],[address] [place], [place] [phone] COCAINE Negative Normal [facility] Comment on above: Performed By: #### 2 53830 #### [facility],[address] [place], [place] [phone] DRUG SCREEN URINE MEDIC Normal [facility] Comment on above: Result Comment: DRUG SCREEN - URINE Performed By: #### 2 09174 #### [facility],[address] [place] [address] 41852 METHADONE Negative Normal [facility] Comment on above: Performed By: #### 2 08404 #### [facility],[address] [place] [address] 70798 OPIATES Positive Normal [facility] Comment on above: Performed By: #### 2 19463 #### [facility],[address] [place] [address] 08130 PCP Negative Normal [facility] Comment on above: Performed By: #### 2 23599 #### [facility],[address] [place] [address] 74591 THC Positive Normal [facility] Comment on above: Result Comment: KARIN ENTS RECEIVING PROTON PUMP INHIBITORS MAY DEMONSTRATE FALSE POSITIVE THC/CANNABINOID RESULTS. AN ALTERNATIVE CONFIRMATORY METHOD SHOULD BE CONSIDERED TO VERIFY POSITIVE RESULTS. Performed By: #### 2 40415 #### [facility],[address] [place] [address] 35182 C-REACTIVE PROTEINon 025 CRP 0.50 mg/dl Normal 0.00 - 0.90 [facility] Comment on above: Performed By: #### 2 45137 #### [facility],[address] [place] [address] 28282 CBC + DIFFon 10-03-2024 Baso # 0.02 x10EE3/UL Normal 0.00 - 0.10 [facility] Comment on above: Performed By: #### 2 81266 #### [facility],[address] [place] [address] 24304 Basophils/100 WBC (Bld) 0.3 % Normal 0.0 - 2.0 [facility] Comment on above: Performed By: #### 2 44316 #### [facility],[address] [place] [address] 08595 CBC + DIFF Normal [facility] Comment on above: Result Comment: CBC- COMPLETE BLOOD COUNT Performed By: #### 2 55711 #### [facility],[address] [place] [address] 99878 EO # 0.06 x10EE3/UL Normal 0.00 - 0.50 [facility] Comment on above: Performed By: #### 2 48262 #### [facility],[address] [place] [address] 09063 Eosinophils/100 WBC (Bld) 0.9 % Normal 0.0 - 7.0 [facility] Comment on above: Performed By: #### 2 51948 #### [facility],[address] [place] [address] Erythrocyte distribution width (RBC) [Ratio] 16.0 % High 12.0 - 15.6 [facility] Comment on above: Performed By: #### 2 53335 #### [facility],[address] [place] [address] Hematocrit (Bld) [Volume fraction] 42.3 % Normal 34.0 - 46.0 [facility] Comment on above: Performed By: #### 2 70867 #### [facility],[address] [place] [address] Hemoglobin (Bld) [Mass/Vol] 14.2 g/dL Normal 12.0 - 16.0 [facility] Comment on above: Performed By: #### 2 89133 #### [facility],[address] [place] [address] Lymph # 1.26 x10EE3/UL Normal 0.80 - 2.80 [facility] Comment on above: Performed By: #### 2 74336 #### [facility],[address] [place], [place] [phone] Lymphocytes/100 WBC (Bld) 18.9 % Low 20.0 - 45.0 [facility] Comment on above: Performed By: #### 2 56305 #### [facility],[address] [place], [place] [phone] MANUAL DIFF N/A Normal [facility] Comment on above: Performed By: #### 2 73218 #### [facility],[address] [place], [place] [phone] MCH (RBC) [Entitic mass] 27 pg Normal 27 - 33 [facility] Comment on above: Performed By: #### 2 97064 #### [facility],[address] [place] [address] MCHC 34 X10 3 Normal 32 - 36 [facility] Comment on above: Performed By: #### 2 46592 #### [facility],[address] [place] [address] 03562 MCV (RBC) [Entitic vol] 79 fL Low 80 - 99 [facility] Comment on above: Performed By: #### 2 70020 #### [facility],[address] [place] [address] 65857 [place] # 0.72 x10EE3/UL Normal 0.20 - 1.00 [facility] Comment on above: Performed By: #### 2 31053 #### [facility],[address] [place], [place] [phone] MONOS % 10.8 % High 0.0 - 10.0 [facility] Comment on above: Performed By: #### 2 41144 #### [facility],[address] [place], [place] [phone] Morphology Arley (Bld) [Interp] N/A Normal [facility] Comment on above: Performed By: #### 2 48656 #### [facility],[address] [place] [address] 47379 Neut # 4.61 x10EE3/UL Normal 1.50 - 7.10 [facility] Comment on above: Performed By: #### 2 16945 #### [facility],[address] [place] [address] 06505 Neutrophils/100 WBC (Bld) 69.1 % Normal 46.0 - 76.0 [facility] Comment on above: Performed By: #### 2 38452 #### [address] [address] PLATELET 343 x10EE3/UL Normal 150 - 450 [facility] Comment on above: Performed By: #### 2 67661 #### [facility],[address] [place] [address] 90574 Platelet mean volume (Bld) [Entitic vol] 7.6 fL Normal 6.6 - 10.5 [facility] Comment on above: Result Comment: AUTO MATED DIFFERENTIAL Performed By: #### 2 93491 #### [facility],[address] [place] [address] RBC 5.33 x 10EE6/UL High 4.10 - 5.30 [facility] Comment on above: Performed By: #### 2 68806 #### [facility],[address] [place] [address] WBC 6.7 x 10EE3/UL Normal 4.5 - 10.8 [facility] Comment on above: Performed By: #### 2 05318 #### [facility],[address] [place] [address] CMP with eGFRon 10-03-2024 AGE 24 years Normal [facility] Comment on above: Performed By: #### 2 45567 #### [facility],[address] [place] [address] Albumin [Mass/Vol] 4.0 g/dL Normal 3.4 - 5.0 [facility] Comment on above: Performed By: #### 2 64358 #### [facility],[address] [place] [address] Albumin/Globulin [Mass ratio] 1.0 {ratio} Normal 0.9 - 1.6 [facility] Comment on above: Performed By: #### 2 83097 #### [facility],[address] [place], [place] [phone] ALK PHOS 70 U/L Normal 46 - 116 [facility] Comment on above: Performed By: #### 2 50049 #### [facility],[address] [place] [address] 90817 ALT [Catalytic activity/Vol] 40 U/L Normal 16 - 63 [facility] Comment on above: Performed By: #### 2 42496 #### [facility],[address] [place], [place] [phone] Anion gap [Moles/Vol] 14 mmol/L Normal 10 - 20 [facility] Comment on above: Performed By: #### 2 23057 #### [facility],[address] [place] [address] AST [Catalytic activity/Vol] 22 U/L Normal 13 - 39 [facility] Comment on above: Performed By: #### 2 58093 #### [facility],[address] [place] [address] B/C RATIO 1 ratio Normal 0 - 30 [facility] Comment on above: Performed By: #### 2 19070 #### [facility],[address] [place] [address] Bilirubin [Mass/Vol] 0.5 mg/dL Normal 0.2 - 1.0 [facility] Comment on above: Performed By: #### 2 47304 #### [facility],[address] [place] [address] Calcium [Mass/Vol] 9.7 mg/dL Normal 8.5 - 10.1 [facility] Comment on above: Performed By: #### 2 71258 #### [facility],[address] [place] [address] Chloride [Moles/Vol] 96 mmol/L Low 98 - 107 [facility] Comment on above: Performed By: #### 2 02353 #### [facility],[address] [place] [address] CMP with eGFR Normal [facility] Comment on above: Result Comment: COMP REHENSIVE METABOLIC PANEL Performed By: #### 2 62610 #### [facility],[address] [place], [place] [phone] CO2 [Moles/Vol] 29.4 mmol/L Normal 21.0 - 32.0 [facility] Comment on above: Performed By: #### 2 23358 #### [facility],[address] [place], [place] [phone] Creatinine [Mass/Vol] 0.70 mg/dL Normal 0.55 - 1.02 [facility] Comment on above: Performed By: #### 2 02582 #### [facility],[address] [place], [place] [address] GFR/1.73 sq M.predicted among non-blacks MDRD (S/P/Bld) [Vol rate/Area] mL/min/{1.73_m2} Normal 60 - 999 [facility] Comment on above: Performed By: #### 2 40624 #### [facility],[address] [place] [address] Result Comment: ACCO RDING TO THE NATIONAL KIDNEY DISEASE EDUCATION PROGRAM(NKDE), A NORMAL eGFR IS A VALUE GREATER THAN OR EQUAL TO 60 ML/MIN/1.73 SQ METERS. CHRONIC KIDNEY DISEASE: <60mL/MIN/1.73 SQ METERS KIDNEY FAILURE: <15mL/MIN/1.73 SQ METERS THIS TEST SHOULD ONLY BE USED FOR PATIENTS 18 YEARS OF AGE AND OLDER. Globulin (S) [Mass/Vol] 4.0 g/dL High 1.5 - 3.8 [facility] Comment on above: Performed By: #### 2 51057 #### [place] [id number] Glucose [Mass/Vol] 96 mg/dL Normal 74 - 106 [facility] Comment on above: Performed By: #### 2 82684 #### [address] [address] Potassium [Moles/Vol] 2.8 mmol/L Critically low 3.5 - 5.1 [facility] Comment on above: Result Comment: { CA LLED TO ALICIA QUEVEDO BY AEL AT 1840 { READ BACK BY ALICIA QUEVEDO RA 1839 Performed By: #### 2 47972 #### [facility],[address] [place] [address] 96503 Protein [Mass/Vol] 8.0 g/dL Normal 6.4 - 8.2 [facility] Comment on above: Performed By: #### 2 87295 #### [facility],[address] [place] [address] 73061 Sodium [Moles/Vol] 137 mmol/L Normal 136 - 145 [facility] Comment on above: Performed By: #### 2 32070 #### [facility],[address] [place] [address] 94361 Urea nitrogen [Mass/Vol] 1 mg/dL Low 7 - 18 [facility] Comment on above: Performed By: #### 2 79151 #### [facility],[address] [place] [address] ABDOMEN/PELVIS [facility] 2024 CT ABDOMEN/PELVIS [address] [address] Patient: ADDIS TORRES Phone#: : 2000 Age: 24 Gender: F Pt. Type: ER Account: [id number] Location: [facility] Ordering: ANJEL ROBERT Exam Date: 10/03/2024/18:46 Family Phys: Charge Code: [id number] Physician: [facility] Order #: [id number] Dose#: 17.00 mGy PROCEDURE: CT ABDOMEN/PELVIS WITH CONTRAST COMPARISON: None. INDICATIONS: Abdominal pain. TECHNIQUE: After obtaining the patient's consent, CT images were created with non-ionic intravenous contrast material. All CT scans at this facility use dose modulation, iterative reconstruction, and/or weight based dosing when appropriate to reduce radiation dose to as low as reasonably achievable. IV CONTRAST: Omnipaque 350,80ml TOTAL DOSE: 17.00 CTDIvol(mGy) FINDINGS: LIVER: Liver is diffusely decreased in attenuation, consistent with diffuse fatty infiltration liver. No enlargement, atrophy, or significant focal lesion. BILIARY: Gallbladder is absent, surgical clips are in the gallbladder fossa. PANCREAS: Normal. No lesion, fluid collection, ductal dilatation, or atrophy. SPLEEN: Normal. No enlargement or focal lesion. KIDNEYS: Kidneys enhance and excrete contrast symmetrically. No hydronephrosis. ADRENALS: Normal. No mass or enlargement. AORTA/VASCULAR: No aortic aneurysm. RETROPERITONEUM: Normal. No mass or adenopathy. BOWEL/MESENTERY: No bowel obstruction or dilatation. Moderate stool volume. Diverticulosis of the sigmoid colon. Appendix is unremarkable in size. Rectal wall appears thickened versus underdistention. ABDOMINAL WALL: Supraumbilical stranding, most consistent with site of prior incision from prior surgery. URINARY BLADDER: Partially filled PELVIC NODES: Normal. No adenopathy. PELVIC ORGANS: Uterus is absent. No adnexal mass. Follicles are present in the ovaries. BONES: Normal. No bony lesion or fracture. LUNG BASES: Normal. No visible pulmonary or pleural disease. Continued Report - Page 2 of 2 Patient: ADDIS TORRES Phone#: : 2000 Age: 24 Gender: F Pt. Type: ER Account: [id number] Location: [facility] Ordering: ANJEL ROBERT Exam Date: 10/03/2024/18:46 Family Phys: Charge Code: [id number] Physician: [facility] Order #: [id number] Dose#: 17.00 mGy OTHER: Negative. CONCLUSION: 1. Rectal wall thickening versus underdistention. 2. Diffuse fatty infiltration of the liver. 3. Diverticulosis of the sigmoid colon Dictated by: Vernell Saenz MD on 10/03/2024 at 19:10 Approved by: Vernell Saenz MD on 10/03/2024 at 19:20 Normal [facility] ED MED ADMINISTRATION DETAIL on 10-03-2024 ED MED ADMINISTRATION DETAIL [employer] Medication Administration Record [address] [address] [id number] 10/03/2024 Patient: ADDIS TORRES Sex: Female : 2000 Age: 24y MEASUREMENTS: Wt: 86.2 kg, Ht/Bk: 67.0 in, BMI: 29.76 ALLERGIES: Phenergan, Rocephin, capsaicin Medication Ordered Medication Administration Date/Time Zofran IVP 4 mg 17:28 10/03 Zofran IVP 4 mg given via Site# 1. Allergies verified Given (NOW x1) and confirmed 5 rights. IV patency established. IV site checked: no 17:28 10/03/2024 pain, redness, or swelling. IV flushed thoroughly pre-medication Stephanie Lugo R.N. administration. Information reviewed with patient including reason Scanned for taking this medication, signs of allergic reaction and precautions. Verbalizes understanding. - 17:29 Stephanie Lugo R.N. IV NS 0.9 % 1000 17:10/03 IV NS 0.9 % 1000 mL started in bag#1 1000 mL at Started mL at 999 mL/hr 999 mL/hr via Site# 1. Allergies verified and confirmed 5 rights. Via 17:10/03/2024 (NOW x1) IV pump. IV patency established. IV site checked: no pain, redness, Stephanie Lugo R.N. or swelling. IV flushed thoroughly pre-medication administration. Stopped Information reviewed with patient including reason for taking this 18:13 10/03/2024 medication, signs of allergic reaction and precautions. Verbalizes Stephanie Lugo R.N. understanding. - 17:28 Stephanie Lugo R.N. Scanned 18:10/03 Medication Discontinued: bag #1 infused. Total amount infused: 1000 mL. IV patency established. IV site checked: no pain, redness, or swelling. IV flushed thoroughly post-medication administration. - 18:13 Stephanie Lugo R.N. 1 of 2 Windows Application Developer Medication Ordered Medication Administration Date/Time HYDROmorphone 17:10/03 HYDROmorphone (Dilaudid) IVP 0.5 mg given via Given (Dilaudid) IVP 0.5 Site# 1. Allergies verified and confirmed 5 rights. IV patency 17:10/03/2024 mg (NOW x1, HIGH established. IV site checked: no pain, redness, or swelling. IV Stephanie Lugo R.N. ALERT flushed thoroughly pre-medication administration. Information Scanned MEDICATION) reviewed with patient including reason for taking this medication, signs of allergic reaction and precautions. Verbalizes understanding. Medication Wastage: 0.5 mg wasted. - 17:31 Stephanie Lugo R.N. 18:14 10/03 Medication Response: Pain is improving. - 18:14 Stephanie Lugo R.N. Potassium Chloride 19:20 10/03 Potassium Chloride PO refused. Refused by patient Refused PO 40 mEq (NOW because of nausea - 19:20 Maryana Ya R.N. 19:20 10/03/2024 x1) Maryana Ya R.N. potassium 19:10/03 potassium chloride(K-Jeffrey)20mEq/10 0ml IVPB Started chloride(K-Jeffrey)20 Premix 20 mEq started at 50 mL/hr via Site# 1. Allergies verified 19:40 10/03/2024 mEq/100ml IVPB and confirmed 5 rights. Via IV pump. IV patency established. IV site Maryana Ya R.N. Premix 20 mEq at checked: no pain, redness, or swelling. IV flushed thoroughly Scanned 50 mL/hr (NOW x1, pre-medication administration. Information reviewed with patient HIGH ALERT including reason for taking this medication. Verbalizes MEDICATION) understanding. - 19:44 Maryana Ya R.N. 19:40 10/03 Medication Co-sign: Verified dosage, concentration and rate. - 19:44 Stephanie Lugo R.N. 20:49 10/03 Medication Continued: upon admission at the rate of 50 mL/hr. 75 mL remaining in bag. IV patency established. IV site checked: no pain, redness, or swelling. - 20:50 Maryana Ya R.N. 2 of 2 Normal [facility] ED NURSES CLINICAL NOTEon ED NURSES CLINICAL NOTE Nurse Narrative Nurse Clinical Narrative [address] [address] [id number] 10/03/2024 Patient: ADDIS TORRES Sex: Female : 2000 Age: 24y Disposition: Observation to Med/Surg Disposition Decision Time: 19:44 10/03/2024 Departure Time: 21:10 10/03/2024 TRIAGE Arrived by private vehicle. Historian: patient and family. Accompanied by family. Triage time: 14:19 10/03/2024. Acuity: LEVEL 3. Chief Complaint: ABDOMINAL PAIN, NAUSEA and VOMITING. Onset. (4 months ago). The patient has had nausea, vomiting, constipation and abdominal pain. No diarrhea. SEPSIS SCREEN: NEGATIVE. SIRS criteria negative: heart rate greater than 90. No possible sources of infection. -- 14:10/03/24 ALVARO Garg R.N. 14:10/03/24. BP: 176/98 MAP: 124. HR: 131. RR: 17. O2 saturation: 97% Temperature: 97.9 F. Pain level now 10/10. Describes the pain as sharp. Constant. -- 14:10/03/24 ALVARO Garg R.N. Measurements: 14:10/03/24 Wt: 86.2 kg, Ht/Bk: 67.0 in, BMI: 29.76 -- 14:10/03/24 ALVARO Garg R.N. Medications: olanzapine 5 mg tablet -- 14:10/03/24 ALVARO Garg R.N. sucralfate 1 gram tablet: 1 gram three times a day. -- 14:10/03/24 ALVARO Garg R.N. pantoprazole 40 mg tablet,delayed release: 1 tablet twice a day. -- 14:10/03/24 ALVARO Garg R.N. 1 of 5 Nurse Narrative mirtazapine 7.5 mg tablet: 1 tablet every night at bedtime. (pt states not been taking) -- 14:10/03/24 ALVARO Garg R.N. metoclopramide 10 mg tablet: 1 tablet four times a day. -- 14:10/03/24 ALVARO Garg R.N. gabapentin 300 mg capsule: 1 capsule three times a day. -- 14:10/03/24 ALVARO Garg R.N. amitriptyline 10 mg tablet: 1 tablet every night at bedtime. -- 14:10/03/24 ALVARO Garg R.N. Allergies: Phenergan -- 14:10/03/24 ALVARO Garg R.N. Rocephin -- 14:10/03/24 ALVARO Gagr R.N. capsaicin -- 14:10/03/24 ALVARO Garg R.N. Home Medications/Allergy Information Source: patient -- 14:10/03/24 ALVARO Garg R.N. Problems: Uterine Cancer -- 14:10/03/24 ALVARO Garg R.N. Gastroparesis -- 14:10/03/24 ALVARO Garg R.N. Anxiety disorder -- 14:10/03/24 ALVARO Garg R.N. Depression -- 14:10/03/24 ALVARO Garg R.N. 14:10/03/24. Preferred pharmacy ([facility] in [place]). -- 14:10/03/24 ALVARO Garg R.N. ADDITIONAL SURGERIES: Cholecystectomy -- 14:10/03/24 ALVARO Garg R.N. Hysterectomy. partial -- 14:10/03/24 ALVARO Garg R.N. ureter tube re-routed- left -- 14:10/03/24 ALVARO Garg R.N. History 14:10/03/24. PAST MEDICAL HX: No menstrual periods. 2 of 5 Nurse Narrative SOCIAL HX: Never smoker. No alcohol use or drug use. The patient has not traveled outside the [place] Infectious disease exposure: No infectious disease exposure. ABUSE ASSESSMENT: The patient answered yes to the question(s) Do you feel safe in your home? and no to the question(s) Are you afraid to go home?. Abuse denied. No suspicion of abuse. SELF HARM ASSESSMENT: Self harm assessment was performed. The patient answered no to the question(s) Have you recently felt down, depressed, or hopeless? and Do you have thoughts of harming or killing yourself?. FALL RISK ASSESSMENT: Fall risk assessment completed. No risk factors identified. -- 14:10/03/24 ALVARO Garg R.N. Interventions 14:10/03/24. Advanced care plan discussed with patient (Full Code). -- 14:10/03/24 ALVARO Garg R.N. PHYSICAL ASSESSMENT 16:10/03/24. Pain level now 10/10. (LLQ). -- 16:10/03/24 ALVARO Lugo R.N. 16:10/03/24. GENERAL / NEURO / PSYCH: Alert. Oriented X 4. Appears in no acute distress. RESPIRATORY: Respirations not labored. Breath sounds within normal limits. CVS: Cardiac rhythm: sinus tachycardia. GI / : The patient has had decreased urination. The patient has had nausea. Bilious emesis noted. Has vomited numerous times. Abdomen soft. Abdominal tenderness in the left lower quadrant. Bowel sounds within normal limits. ( Difficulty with urination). SKIN: Skin is warm and dry. -- 16:16 10/03/24 ALVARO Lugo R.N. NURSING PROGRESS NOTES 16:33 10/03/24. Rounding: Pain: assessed pain level. Position: states comfortable. Personal care / toileting: denies toileting needs. Proximity of possessions / care items: call light within easy reach. Set expectations: advised patient of rounding protocol timing and asked if they needed anything else at this time. -- 16:33 10/03/24 ALVARO Lugo R.N. 17:26 10/03/24. IV NS 0.9 % 1000 mL started in bag#1 1000 mL at 999 mL/hr via Site# 1. Allergies verified and confirmed 5 rights. Via IV pump. IV patency established. IV site checked: (more content not included)... Normal [facility] ED ORDER SHEET ([facility]OE ONLY)on 10-03-2024 ED ORDER SHEET (CPOE ONLY) Order Sheet Order Sheet [address] [address] [id number] 10/03/2024 Patient: ADDIS TORRES Sex: Female : 2000 Age: 24y MEASUREMENTS: Wt: 86.2 kg, Ht/Bk: 67.0 in, BMI: 29.76 ALLERGIES: Phenergan, Rocephin, capsaicin MEDICATION/IV/DRIP/FLUID ORDERS Order Description Priority Entered Acknowledged Completed Zofran IVP4 mg (NOW x1) 16:41 10/03/2024 17:19 17:29 Anjel Robert M.D. 10/03/2024 10/03/2024 Stephanie Lemus R.N. R.N. IV NS 0.9 %1000 mL at 999 16:41 10/03/2024 17:19 17:28 mL/hr (NOW x1) Anjel Robert M.D. 10/03/2024 10/03/2024 Stephanie Lemus, Kali.N. R.N. HYDROmorphone (Dilaudid) 16:41 10/03/2024 17:19 17:31 IVP0.5 mg (NOW x1, HIGH Anjel Robert M.D. 10/03/2024 10/03/2024 ALERT MEDICATION) Stephanie Lemus, R.N. R.N. Reason for ordering with alerts: Clinical consideration given --16:41 10/03/2024 Anjel Robert M.D. Potassium Chloride PO40 mEq 18:44 10/03/2024 18:47 19:20 (NOW x1) Anjel Robert M.D. 10/03/2024 10/03/2024 Maryana Lemus, Kali.N. R.NAndrew 1 of 3 Order Sheet Reason for ordering with alerts: Clinical consideration given --18:44 10/03/2024 Anjel Robert M.D. potassium 19:24 10/03/2024 19:26 19:44 chloride(K-Jeffrey)20mEq/10 0ml Anjel Robert M.D. 10/03/2024 10/03/2024 IVPB Wyjkma12 mEq at 50 mL/hr Maryana Granados, (NOW x1, HIGH ALERT R.N. R.N. MEDICATION) Reason for ordering with alerts: Clinical consideration given --19:24 10/03/2024 Anjel Robert M.D. LAB ORDERS Order Description Priority Entered Acknowledged Collected Completed EKG - ED Stat Stat 14:33 10/03/2024 14:33 10/03/2024 16:10 10/03/2024 Dalia Espinoza Katelyn Horst, Kali.N. R.N. R.N. Per Protocol, Auth by: Anjel Robert M.D. CBC w Diff Stat Stat 16:41 10/03/2024 16:48 10/03/2024 17:19 10/03/2024 Brett Noel Katelyn Horst, Kali.N. R.N. CMP Stat Stat 16:41 10/03/2024 16:48 10/03/2024 17:19 10/03/2024 Brett Noel Katelyn Horst, R.N. R.N. Lactate, Serum Stat Stat 16:41 10/03/2024 16:48 10/03/2024 17:19 10/03/2024 Brett Noel Katelyn Horst, R.N. R.N. Lipase Stat Stat 16:41 10/03/2024 16:48 10/03/2024 17:19 10/03/2024 Brett Noel Katelyn Horst, R.N. R.N. Urinalysis Stat Stat 16:41 10/03/2024 16:48 10/03/2024 18:13 10/03/2024 Brett Noel Katelyn Horst, Kali.N. R.N. Urine - HCG Stat 16:41 10/03/2024 16:48 10/03/2024 18:13 10/03/2024 2 of 3 Order Sheet Stat Brett Noel Katelyn Horst, Kali.N. R.N. CRP Stat Stat 16:41 10/03/2024 16:48 10/03/2024 17:19 10/03/2024 Brett Noel Katelyn Horst, R.N. R.NAndrew DIAGNOSTIC STUDY ORDERS Order Description Priority Entered Acknowledged Completed CT ABD/PEL w Cont Stat Stat 16:41 10/03/2024 16:48 18:58 Anjel Robert M.D. 10/03/2024 10/03/2024 Stephanie Lemus, R.N. R.N. Order Comments: 16:40 10/03/2024: Status: Unknown. Anjel Robert M.D. Reason for Study: Abdominal Pain STAFF ORDERS Order Description Priority Entered Acknowledged Collected Completed [Electronically signed by Anjel Robert M.D. (10/03/2024 20:28 EST)] 3 of 3 Normal [facility] ED PHYSICIAN CLINICAL REPORT on 10-03-2024 ED PHYSICIAN CLINICAL REPORT Narrative Physician Clinical Narrative [place] [address] [place] [address] [id number] 10/03/2024 [id number] Sex[facility] Female : 2000 Age: 24y Disposition: Observation to Med/Surg Disposition Decision Time: 19:44 10/03/2024 Measurements Wt: 86.2 kg, Ht/Bk: 67.0 in, BMI: 29.76 Initial Vital Sign Measured Time BP MAP HR RR O2Sat ETCO2 Temp Pain GCS RTS 14:28 10/03/2024 176/98 124 131 17 97% 97.9 F 10 Time Seen: 16:24 10/03/2024. Arrived- By private vehicle. HISTORY OF PRESENT ILLNESS Chief Complaint: ABDOMINAL PAIN. It is described as sharp, burning and diffuse and Pain is diffuse to the abdomen but the worst of the lef. This started states has had abdominal pain for 4 months. It has been constant though with intermittent severity. She has not been able to eat anything for a week. She has constant nausea. Pain in his worse to the mid to low low left abdomen rate has been throughout. She has seen Dr. Combs for gastroparesis and for this in the past and states that she tried to get a hold of him to be seen again but has been unable to make an appointment. She states that he told her to go to a different hosp and is still present. The patient has had nausea and vomiting. The patient has had loss of appetite (She states she has lost 75 lb over the last 6 months.). No diarrhea. Similar symptoms previously. Patient has had similar symptoms chronically. REVIEW OF SYSTEMS 1 of 13 Narrative CONSTITUTIONAL: No chills. RESPIRATORY: No difficulty breathing or cough. CVS: No chest pain. : The patient has had difficulty with urination. No pain with urination. GI: The patient has had constipation. No black stools or bloody stools. All other systems reviewed and are negative. Status: Unknown. PAST HISTORY See nurses notes. Anxiety disorder Depression Gastroparesis Uterine Cancer Surgeries: Cholecystectomy Hysterectomy: Body Site partial ureter tube re-routed- left Medications: amitriptyline 10 mg tablet: 1 tablet every night at bedtime. gabapentin 300 mg capsule: 1 capsule three times a day. metoclopramide 10 mg tablet: 1 tablet four times a day. mirtazapine 7.5 mg tablet: 1 tablet every night at bedtime. (pt states not been taking) olanzapine 5 mg tablet pantoprazole 40 mg tablet,delayed release: 1 tablet twice a day. sucralfate 1 gram tablet: 1 gram three times a day. Allergies: capsaicin Phenergan Rocephin Home Medications/Allergy Information Source: patient - Dalia GargJim, 10/03/2024 14:21 EST SOCIAL HISTORY 2 of 13 Narrative Does not use tobacco. No alcohol use. ADDITIONAL NOTES The nursing notes have been reviewed. PHYSICAL EXAM Vital Signs: Have been reviewed. Appearance: Alert. Oriented X3. Anxious. Patient in mild distress. Eyes: Pupils equal, round and reactive to light. Eyes normal inspection. ENT: Ears normal. Nose normal. Pharynx normal. Neck: Normal inspection. Neck supple. CVS: Tachycardia. Normal heart rhythm. Heart sounds normal. Pulses normal. Respiratory: No respiratory distress. Painless inspiration. Breath sounds normal. Chest nontender. Abdomen: Soft. Moderate tenderness diffusely and in the left side of the abdomen and left lower quadrant. No guarding or rebound tenderness. Abnormal bowel sounds: diminished. Back: Normal inspection. Skin: Skin dry. Pallor. No rash. Cool skin. (Poor hygiene). Neuro: Oriented X 3. No motor deficit. No sensory deficit. Reflexes normal. LABS, X-RAYS, AND EKG Laboratory Tests: C-REACTIVE PROTEIN Final DEJUAN: 10/03/2024 17:15:00 EST MsgRcvd: 10/03/2024 18:22 EST Lab Test Result Reference Status Received Comments 10/03/2024 18:22 CRP 0.50 mg/dl 0.00 - 0.90 Final EST CBC + DIFF Final DEJUAN: 10/03/2024 17:15:00 EST MsgRcvd: 10/03/2024 17:43 EST Lab Test Result Reference Status Received Comments 3 of 13 Narrative 10/03/2024 17:43 CBC-COMPLETE CBC + DIFF Final EST BLOOD COUNT 10/03/2024 17:43 WBC 6.7 x 10/UL 4.5 - 10.8 Final EST 5.33 x 10/UL 10/03/2024 17:43 RBC 4.10 - 5.30 Final Above high normal EST 10/03/2024 17:43 HEMOGLOBIN 14.2 g/dl 12.0 - 16.0 Final EST 10/03/2024 17:43 HEMATOCRIT 42.3 % 34.0 - 46.0 Final EST 79 fl 10/03/2024 17:43 MCV 80 - 99 Final Below low normal EST 10/03/2024 17:43 MCH 27 pg 27 - 33 Final EST 10/03/2024 17:43 MCHC 34 X10 3 32 - 36 Final EST 16.0 % 10/03/2024 17:43 RDW/CV 12.0 - 15.6 Final Above high normal EST 10/03/2024 17:43 PLATELET 343 x10/UL 150 - 450 Final EST 10/03/2024 17:43 AUTOMATED MPV 7.6 fl 6.6 - 10.5 Final EST DIFFERENTIAL 10/03/2024 17:43 NEUT % 69.1 % 46.0 - 76.0 Final EST 18.9 % 10/03/2024 17:43 LYMPH % 20.0 - 45.0 Final Below low normal EST 10.8 % 10/03/2024 (more content not included)... Normal [facility] ED [facility] BILLon 10-03-2024 ED [facility] BILL [place] [address] [place] [address] [phone] 10/03/2024 Patient: ADDIS TORRES Sex: Female : 2000 Age: 24y Facility Professional Category Item Description Code Code Quantity Fee Total Nurse/E/M EMERGENCY 049930 1 $0.00 $0.00 DEPT VISIT HIGH SEVERITYFUNCJ (54115-36) Nurse/IV/IM/Infusions Drip/IVPB initial 218408 1 $0.00 $0.00 (91548) Nurse/IV/IM/Infusions Hydration 200657 1 $0.00 $0.00 additional hour (08323) Nurse/IV/IM/Infusions IVP additional 553085 2 $0.00 $0.00 push (94019) Grand $0.00 Total Providers Anjel Robert M.D. Chief Complaint ABDOMINAL PAIN. 1 of 2 Superbill Principal Diagnosis Chronic abdominal pain of undetermined cause. Chronic abdominal pain of unknown cause. Hypokalemia. vomiting with hypovolemia. ICD-10 Codes R10.9: Unspecified abdominal pain E87.6: Hypokalemia K52.9: Noninfective gastroenteritis and colitis, unspecified R10.9: Unspecified abdominal pain 2 of 2 Normal [facility] ED VISIT SUMMARYon ED VISIT SUMMARY Visit Overview Visit Overview [place] [address] [place] [address] [phone] 10/03/2024 Patient: ADDIS TORRES Sex: Female : 2000 Age: 24y 10/03/2024 09:31 PM EST ED Arrival:14:17 10/03/2024 EST Status: Recent Travel:no Language:eng Adv Directive: Isolation Status: Ethnicity:N Fall Risk:no risk Infectious Disease Exposure:no Measurements:5'7 / 170.2 Self-Harm Status:risk Sepsis Screen:negative cm 190.0 lb / 86.2 kg Chief Complaint:ABDOMINAL PAIN, NAUSEA, VOMITING, and (4 months ago) ALLERGIES capsaicin Phenergan Rocephin HOME MEDICATIONS amitriptyline 10 mg tablet: 1 tablet every night at bedtime. gabapentin 300 mg capsule: 1 capsule three times a day. metoclopramide 10 mg tablet: 1 tablet four times a day. mirtazapine 7.5 mg tablet: 1 tablet every night at bedtime. (pt states not been taking) 1 of 4 Visit Overview olanzapine 5 mg tablet pantoprazole 40 mg tablet,delayed release: 1 tablet twice a day. sucralfate 1 gram tablet: 1 gram three times a day. PAST MEDICAL HISTORY / PROBLEMS Anxiety disorder Depression Gastroparesis No menstrual periods See nurses notes Uterine Cancer PAST SURGICAL HISTORY Cholecystectomy Hysterectomy. partial ureter tube re-routed- left SOCIAL HISTORY Smoking status: No Alcohol use: No Drug use: No ED COURSE MEDICATIONS GIVEN IN EMERGENCY DEPARTMENT 17:26 10/03/24 IV NS 0.9 % 1000 mL 999 mL/hr 17:28 10/03/24 Zofran IVP 4 mg 17:30 10/03/24 HYDROmorphone (Dilaudid) IVP 0.5 mg 19:40 10/03/24 potassium chloride(K-Jeffrey)20mEq/10 0ml IVPB Premix 20 mEq 50 mL/hr IV SITE INFORMATION 17:28 10/03/24 Site #1 right forearm, 20g. Saline lock. INTAKE OUTPUT 2 of 4 Visit Overview REASSESMENT (most recent) 16:16 10/03/24. GENERAL / NEURO / PSYCH: Alert. Oriented X 4. Appears in no acute distress. RESPIRATORY: Respirations not labored. Breath sounds within normal limits. CVS: Cardiac rhythm: sinus tachycardia. GI / : The patient has had decreased urination. The patient has had nausea. Bilious emesis noted. Has vomited numerous times. Abdomen soft. Abdominal tenderness in the left lower quadrant. Bowel sounds within normal limits. ( Difficulty with urination). SKIN: Skin is warm and dry. VITAL SIGNS First Vitals Last Vitals Temp 14:28 10/03/24 97.9 F Temp 20:57 10/03/24 BP 14:28 10/03/24 176/98 BP 20:57 10/03/24 HR 14:28 10/03/24 131 HR 20:57 10/03/24 109 RR 14:28 10/03/24 17 RR 20:57 10/03/24 O2 Sat 14:28 10/03/24 97% O2 Sat 20:57 10/03/24 96% Pain 14:28 10/03/24 10 Pain 20:57 10/03/24 ETCO2 14:28 10/03/24 ETCO2 20:57 10/03/24 GCS 14:28 10/03/24 GCS 20:57 10/03/24 RTS 14:28 10/03/24 RTS 20:57 10/03/24 PROCEDURES NURSING INTERVENTIONS LABS / STUDIES LABS / STUDIES ORDERED CBC w Diff CMP CRP CT ABD/PEL w Cont EKG - ED Lactate, Serum Lipase Urinalysis Urine - HCG LABS - ABNORMAL RESULTS 3 of 4 Visit Overview CMP with eGFR POTASSIUM 2.8 mmol/L (LL) CLINICAL IMPRESSION CHRONIC ABDOMINAL PAIN OF UNDETERMINED CAUSE CHRONIC ABDOMINAL PAIN OF UNKNOWN CAUSE HYPOKALEMIA 4 of 4 Normal [facility] ED VITALS FLOW SHEETon 10-03 ED VITALS FLOW SHEET Vitals Vital Sign Flow Sheet [place] [address] [place] [address] [phone] 10/03/2024 Patient: ADDIS TORRES [facility] [place]#: [id number] Sex: Female : 2000 Age: 24y Measurements Wt: 86.2 kg, Ht/Bk: 67.0 in, BMI: 29.76 Measured Time BP MAP HR RR O2Sat ETCO2 Temp Pain GCS RTS 20:57 10/03/2024 109 96% 20:56 10/03/2024 168/116 125 108 20:52 10/03/2024 112 96% 20:47 10/03/2024 107 96% 20:42 10/03/2024 110 96% 20:41 10/03/2024 167/114 124 111 20:37 10/03/2024 113 96% 20:32 10/03/2024 113 94% 20:27 10/03/2024 108 96% 20:26 10/03/2024 150/110 118 108 20:22 10/03/2024 107 92% 20:17 10/03/2024 105 98% 20:12 10/03/2024 117 98% 20:11 10/03/2024 144/116 123 114 20:07 10/03/2024 112 99% 1 of 4 Vitals Measured Time BP MAP HR RR O2Sat ETCO2 Temp Pain GCS RTS 20:02 10/03/2024 122 98% 19:57 10/03/2024 116 97% 19:56 10/03/2024 151/113 127 108 19:52 10/03/2024 111 98% 19:47 10/03/2024 111 97% 19:42 10/03/2024 110 95% 19:41 10/03/2024 149/114 132 114 19:37 10/03/2024 109 94% 19:32 10/03/2024 108 96% 19:27 10/03/2024 109 98% 19:26 10/03/2024 153/116 122 114 19:22 10/03/2024 108 95% 19:17 10/03/2024 107 95% 19:12 10/03/2024 108 96% 19:11 10/03/2024 166/111 122 108 19:07 10/03/2024 106 95% 19:02 10/03/2024 109 97% 18:42 10/03/2024 108 97% 18:41 10/03/2024 154/109 119 106 18:37 10/03/2024 105 96% 18:32 10/03/2024 108 96% 18:27 10/03/2024 107 96% 18:26 10/03/2024 154/113 127 108 18:11 10/03/2024 149/114 125 108 18:07 10/03/2024 110 98% 2 of 4 Vitals Measured Time BP MAP HR RR O2Sat ETCO2 Temp Pain GCS RTS 18:02 10/03/2024 112 99% 17:57 10/03/2024 115 98% 17:56 10/03/2024 166/111 132 116 17:52 10/03/2024 112 93% 17:47 10/03/2024 113 94% 17:42 10/03/2024 113 96% 17:41 10/03/2024 158/115 132 111 17:37 10/03/2024 114 96% 17:33 10/03/2024 153/117 129 118 17:32 10/03/2024 122 96% 17:27 10/03/2024 122 96% 17:22 10/03/2024 139 95% 17:17 10/03/2024 120 96% 17:12 10/03/2024 119 96% 17:07 10/03/2024 141 97% 17:02 10/03/2024 137 96% 16:57 10/03/2024 137 96% 16:52 10/03/2024 125 98% 16:47 10/03/2024 123 96% 16:42 10/03/2024 111 96% 16:37 10/03/2024 122 97% 16:32 10/03/2024 119 97% 16:27 10/03/2024 103 95% 16:26 10/03/2024 138/100 113 102 16:22 10/03/2024 103 95% 3 of 4 Vitals Measured Time BP MAP HR RR O2Sat ETCO2 Temp Pain GCS RTS 16:17 10/03/2024 112 95% 16:14 10/03/2024 10 16:12 10/03/2024 113 97% 16:11 10/03/2024 148/117 126 109 14:28 10/03/2024 176/98 124 131 17 97% 97.9 F 10 4 of 4 Normal [facility] LACTATEon 10-03-2024 Lactate [Moles/Vol] 1.2 mmol/L Normal 0.4 - 2.0 [facility] Comment on above: Performed By: #### 2 [id number] #### [facility],[address] [place] [address] LIPASEon 10-03-2024 Lipase [Catalytic activity/Vol] 120.0 U/L High 15.0 - 78.0 [facility] Comment on above: Result Comment: *PLE ASE NOTE THAT RANGES FOR LIPASE HAVE CHANGED OF 09/04/23 DUE TO AN ASSAY UPDATE BY THE MENTAL HYGIENIST.THE NEW ASSAY RANGE IS 6-250 U/L, WITH A REFERENCE RANGE OF 16-77 U/L. Performed By: #### 2 [id number] #### [place] [address] URINEon 10-03-2024 Beta HCG ( test) Ql (U) Negative Normal NEGATIVE [facility] Comment on above: Performed By: #### 2 [id number] #### [place] [address] EXTERNAL QC DONE? YES Normal [facility] Comment on above: Performed By: #### 2 10043 #### [place] [address] INTERNAL QC PASS Normal [facility] Comment on above: Performed By: #### 2 27701 #### [place] [address] URINALYSISon 10-03-2024 Bilirubin Ql (U) Negative Normal NORMAL: NEGATIVE [facility] Comment on above: Performed By: #### 2 19103 #### [place] [address] Clarity (U) clear Normal NORMAL: CLEAR [facility] Comment on above: Performed By: #### 2 [id number] #### [facility],[address] [place] [address] Color (U) yellow Normal NORMAL: YELLOW [facility] Comment on above: Performed By: #### 2 [id number] #### [facility],[address] [place] [address] Glucose Ql (U) NORM Normal NORMAL: NORMAL [facility] Comment on above: Performed By: #### 2 75712 #### [facility],[address] [place] [address] 28078 Hemoglobin Ql (U) Negative Normal NORMAL: NEGATIVE [facility] Comment on above: Performed By: #### 2 [id number] #### [facility],[address] [place] [address]7077 Ketone 150 Abnormal NORMAL: NEGATIVE [facility] Comment on above: Performed By: #### 2 80313 #### [facility],[address] [place] [address] 20365 Leukocytes Negative Normal NORMAL: NEGATIVE [facility] Comment on above: Performed By: #### 2 81209 #### [facility],[address] [place] [address] 30505 Nitrite Ql (U) Negative Normal NORMAL: NEGATIVE [facility] Comment on above: Performed By: #### 2 74855 #### [facility],[address] [place] [address] 32564 pH (U) 6.5 [pH] Normal NORMAL: 5.0-8.0 [facility] Comment on above: Performed By: #### 2 [id number] #### [facility],[address] [place] [address] 92230 Protein Ql (U) 15 Abnormal NORMAL: NEGATIVE [facility] Comment on above: Performed By: #### 2 62675 #### [facility],[address] [place] [address] Sp [place] 1.015 Normal NORMAL: 1.010-1.03 0 [facility] Comment on above: Performed By: #### 2 [id number] #### [facility],[address] [place] [address] Specimen Type R Normal [facility] Comment on above: Performed By: #### 2 [id number] #### [facility],[address] [place] [address] Urinalysis dipstick W Reflex Microscopic panel (U) NOT INDICATED Normal [facility] Comment on above: Performed By: #### 2 [id number] #### [facility],[address] [place] [address] Urobilinog NORM Normal NORMAL: NORMAL [facility] Comment on above: Performed By: #### 2 [id number] #### [facility],[address] [place] [address] CALCIUMon 09-30-2024 Calcium [Mass/Vol] 9.7 mg/dL Normal 8.6-10.5 [facility] Comment on above: Performed By: #### G TREVOR, LIPA, MGO, CA, CHM6, HFP, IPB #### [facility] (DEFAULT) [address] [address] CBC AND ELECTRONIC DIFFon Abs Baso Auto < Normal 0.00-0.15 [facility] Comment on above: Performed By: #### L [id number] #### [facility] (DEFAULT) [address] [place] [address] Basophils/100 WBC (Bld) 0.3 % Normal [facility] Comment on above: Performed By: #### L [id number] #### [facility] (DEFAULT) [address] [address] DIFF STATUS Electronic Differential Normal [facility] Comment on above: Performed By: #### L [id number] #### [facility] (DEFAULT) [address] [place] [address] Eosinophils (Bld) [#/Vol] 0.09 10*3/uL Normal 0.00-0.42 [facility] Comment on above: Performed By: #### L [id number] #### [facility] (DEFAULT) [address] [address] Eosinophils/100 WBC (Bld) 0.9 % Normal [facility] Comment on above: Performed By: #### L [id number] #### [facility] (DEFAULT) [address] [address] Hematocrit (Bld) [Volume fraction] 42.1 % Normal 34.9-44.3 [facility] Comment on above: Performed By: #### L [id number] #### [facility] (DEFAULT) [address] [address] Hemoglobin (Bld) [Mass/Vol] 13.5 g/dL Normal 11.4-15.2 [facility] Comment on above: Performed By: #### L [id number] #### [facility] (DEFAULT) [address] [address] Immature Grans % 0.3 % Normal [facility] Comment on above: Performed By: #### L [id number] #### [facility] (DEFAULT) [address] [address] Immature Grans Absolute < Normal <=0.08 [facility] Comment on above: Performed By: #### L [id number] #### [facility] (DEFAULT) [address] [place] [address] Lymphocytes (Bld) [#/Vol] 1.25 10*3/uL Normal 1.16-3.51 [facility] Comment on above: Performed By: #### L [id number] #### [facility] (DEFAULT) [address] [address] Lymphocytes/100 WBC (Bld) 12.7 % Normal [facility] Comment on above: Performed By: #### L [id number] #### [facility] (DEFAULT) [address] [place] [address] MCV (RBC) [Entitic vol] 79.6 fL Normal 79.6-97.7 [facility] Comment on above: Performed By: #### L [id number] #### [facility] (DEFAULT) [address] [place] [address] Mean Cell Hgb 25.5 pg Low 25.9-33.9 [facility] Comment on above: Performed By: #### L [id number] #### [facility] (DEFAULT) [address] [place] [address] Mean Cell Hgb Conc 32.1 g/dL Normal 31.4-35.9 [facility] Comment on above: Performed By: #### L [id number] #### [facility] (DEFAULT) [address] [place] [address] Monocytes (Bld) [#/Vol] 0.86 10*3/uL Normal 0.22-0.87 [facility] Comment on above: Performed By: #### L [id number] #### [facility] (DEFAULT) [address] [address] Monocytes/100 WBC (Bld) 8.7 % Normal [facility] Comment on above: Performed By: #### L [id number] #### [facility] (DEFAULT) [address] [place] [address] Nucleated RBC 0.0 /100 WBC Normal <=0.2 [facility] Comment on above: Performed By: #### L [id number] #### [facility] (DEFAULT) [address] [place] [address] Platelet mean volume (Bld) [Entitic vol] 9.2 fL Normal 8.5-12.2 [facility] Comment on above: Performed By: #### L [id number] #### [facility] (DEFAULT) [address] [place] [address] Platelets (Bld) [#/Vol] 282 10*3/uL Normal 150-393 [facility] Comment on above: Performed By: #### L [id number] #### [facility] (DEFAULT) [address] [place] [address] RBC (Bld) [#/Vol] 5.29 10*6/uL High 3.91-5.04 [facility] Comment on above: Performed By: #### L [id number] #### [facility] (DEFAULT) [address] [place] [address] RBC Distribution 16.1 % High 10.8-14.9 [facility] Comment on above: Performed By: #### L [id number] #### [facility] (DEFAULT) [address] [place] [address] Segs + Bands Auto 77.1 % Normal [facility] Comment on above: Performed By: #### L [id number] #### [facility] (DEFAULT) [address] [place] [address] Segs + Bands,Absolute Auto 7.61 K/uL High 1.64-7.28 [facility] Comment on above: Performed By: #### L [id number] #### [facility] (DEFAULT) [address] [place] [address] WBC (Bld) [#/Vol] 9.87 10*3/uL Normal 3.99-11.19 [facility] Comment on above: Performed By: #### L [id number] #### [facility] (DEFAULT) [address] [place] [address] CHEM 6 (LYTES, BUN CREA)on 0 - Anion gap [Moles/Vol] 22 mmol/L High 7-17 [facility] Comment on above: Performed By: #### G TREVOR, LIPA, MGO, CA, CHM6, HFP, IPB #### [facility] (DEFAULT) [address] [place] [address] Chloride [Moles/Vol] 95 mmol/L Low 98-108 [facility] Comment on above: Performed By: #### G TREVOR, LIPA, MGO, CA, CHM6, HFP, IPB #### [facility] (DEFAULT) [address] [place] [address] CO2 [Moles/Vol] 20 mmol/L Low 21-31 [facility] Comment on above: Performed By: #### G TREVOR, LIPA, MGO, CA, CHM6, HFP, IPB #### [facility] (DEFAULT) [address] [place] [address] Creatinine [Mass/Vol] 0.64 mg/dL Normal 0.50-1.20 [facility] Comment on above: Performed By: #### G TREVOR, LIPA, MGO, CA, CHM6, HFP, IPB #### [facility] (DEFAULT) [address] [place] [address] eGFR, CKD-EPI, Female > Normal >=60 [facility] Comment on above: Result Comment: Repo rted eGFR is based on the CKD-EPI 2020 equation using creatinine, age, and sex. Performed By: #### G TREVOR, LIPA, MGO, CA, CHM6, HFP, IPB #### [facility] (DEFAULT) [address] [place] [address] Potassium [Moles/Vol] 3.1 mmol/L Low 3.5-5.0 [facility] Comment on above: Performed By: #### G TREVOR, LIPA, MGO, CA, CHM6, HFP, IPB #### [facility] (DEFAULT) [address] [place] [address] Sodium [Moles/Vol] 134 mmol/L Low 135-145 [facility] Comment on above: Performed By: #### G TREVOR, LIPA, MGO, CA, CHM6, HFP, IPB #### [facility] (DEFAULT) [address] [place] [address] Urea nitrogen [Mass/Vol] 3 mg/dL Low 7-25 [facility] Comment on above: Performed By: #### G TREVOR, LIPA, MGO, CA, CHM6, HFP, IPB #### [facility] (DEFAULT) [address] [place] [address] Urea nitrogen/Creatinine [Mass ratio] 5 mg/mg Normal [facility] Comment on above: Performed By: #### G TREVOR, LIPA, MGO, CA, CHM6, HFP, IPB #### [facility] (DEFAULT) [address] [place] [address] GLUCOSEon 09-30-2024 Glucose [Mass/Vol] 87 mg/dL Normal 70-99 [facility] Comment on above: Performed By: #### G TREVOR, LIPA, MGO, CA, CHM6, HFP, IPB #### [facility] (DEFAULT) [address] [place] [address] HEPATIC FUNCTION PANELon Albumin [Mass/Vol] 4.7 g/dL Normal 3.5-5.0 [facility] Comment on above: Performed By: #### G TREVOR, LIPA, MGO, CA, CHM6, HFP, IPB #### [facility] (DEFAULT) [address] [place] [address] ALP [Catalytic activity/Vol] 66 U/L Normal 32-126 [facility] Comment on above: Performed By: #### G TREVOR, LIPA, MGO, CA, CHM6, HFP, IPB #### [facility] (DEFAULT) [address] [place] [address] ALT [Catalytic activity/Vol] 24 U/L Normal 9-48 [facility] Comment on above: Performed By: #### G TREVOR, LIPA, MGO, CA, CHM6, HFP, IPB #### [facility] (DEFAULT) [address] [place] [address] AST [Catalytic activity/Vol] 20 U/L Normal 10-39 [facility] Comment on above: Performed By: #### G TREVOR, LIPA, MGO, CA, CHM6, HFP, IPB #### [facility] (DEFAULT) [address] [place] [address] Bilirubin [Mass/Vol] 0.5 mg/dL Normal <1.5 [facility] Comment on above: Performed By: #### G TREVOR, LIPA, MGO, CA, CHM6, HFP, IPB #### [facility] (DEFAULT) [address] [place] [address] Bilirubin.indirect [Mass/Vol] 0.2 mg/dL Normal <0.3 [facility] Comment on above: Performed By: #### G TREVOR, LIPA, MGO, CA, CHM6, HFP, IPB #### [facility] (DEFAULT) [address] [place] [address] Protein [Mass/Vol] 8.2 g/dL Normal 6.4-8.3 [facility] Comment on above: Performed By: #### G TREVOR, LIPA, MGO, CA, CHM6, HFP, IPB #### [facility] (DEFAULT) [address] [place] [address] LIPASEon 09-30-2024 Lipase [Catalytic activity/Vol] 144 U/L High 11-82 [facility] Comment on above: Performed By: #### G TREVOR, LIPA, MGO, CA, CHM6, HFP, IPB #### [facility] (DEFAULT) [address] [place] [address] MAGNESIUMon 09-30-2024 Magnesium [Mass/Vol] 1.9 mg/dL Normal 1.6-2.6 [facility] Comment on above: Performed By: #### G TREVOR, LIPA, MGO, CA, CHM6, HFP, IPB #### [facility] (DEFAULT) [address] [place] [address] PHOSPHATE, INORGANICon 09-30 Phosphorous 3.6 mg/dL Normal 2.2-4.6 [facility] Comment on above: Performed By: #### G TREVOR, LIPA, MGO, CA, CHM6, HFP, IPB #### [facility] (DEFAULT) [address] [place] [address] POTASSIUMon 09-30-2024 Potassium [Moles/Vol] 3.5 mmol/L Normal 3.5-5.0 [facility] Comment on above: Performed By: #### K KO #### [facility] (DEFAULT) [address] [place] [address] PT,INR,PTTon 09-30-2024 aPTT Coag (Bld) [Time] 29.8 s Normal 24.0-34.3 [facility] Comment on above: Performed By: #### P TPTT #### [facility] (DEFAULT) [address] [place] [address] INR Coag (PPP) [Relative time] 1.5 {INR} High 0.9-1.1 [facility] Comment on above: Performed By: #### P TPTT #### [facility] (DEFAULT) [address] [place] [address] PT Coag (PPP) [Time] 18.2 s High 11.9-14.2 [facility] Comment on above: Performed By: #### P TPTT #### [facility] (DEFAULT) [address] [place] [address] 30on 09-28-2024 30 Normal [facility] 30 Normal [facility] BASIC METABOLIC PANELon 09-08 Anion gap [Moles/Vol] 16 mmol/L High 3-13 [facility] Comment on above: Performed By: #### L AB15, [id number] ####[employer] Supervisor: KIMBERLY VIRGEN ([phone])[facility] ([address] Calcium [Mass/Vol] 9.0 mg/dL Normal 8.4-10.2 [facility] Comment on above: Performed By: #### L AB15, [id number] ####[employer] Supervisor: KIMBERLY VIRGEN ([phone])[facility])[address] [place] [address] Chloride [Moles/Vol] 100 mmol/L Normal 98-107 [facility] Comment on above: Performed By: #### L AB15, [id number] ####[employer] Supervisor: KIMBERLY VIRGEN ([phone])[facility])[address] [place] [address] CO2 [Moles/Vol] 21 mmol/L Low 22-29 [facility] Comment on above: Performed By: #### L AB15, [id number] ####[employer] Supervisor: KIMBERLY VIRGEN ([phone])[facility])[address] [place] [address] Creatinine [Mass/Vol] 0.68 mg/dL Normal 0.57-1.11 [facility] Comment on above: Performed By: #### L AB15, [id number] ####[employer] Supervisor: KIMBERLY VIRGEN ([phone])[facility])[address] [place] [address] GLOMERULAR FILTRATION RATE ML/MIN/1.73 SQ M.PREDICTED >90.0 Normal >60.0 [facility] Comment on above: Result Comment: Calc ulation based on the Chronic Kidney Disease Epidemiology Collaboration (CKD-EPI) equation refit without adjustment for race Performed By: #### L AB15, [id number] ####[employer] Supervisor: KIMBERLY VIRGEN ([phone])[facility] ([facility])[address] [place] [address] [place] Glucose [Mass/Vol] 80 mg/dL Normal 74-100 [facility] Comment on above: Performed By: #### L AB15, [id number] ####[employer] Supervisor: KIMBERLY VIRGEN ([phone])[facility])[address] [place] [address] [place] Potassium [Moles/Vol] 3.5 mmol/L Normal 3.5-5.1 [facility] Comment on above: Result Comment: [facility] potassium values may be up to 0.5 mmol/L lower than serum values. Performed By: #### L AB15, [id number] ####[employer] Supervisor: KIMBERLY VIRGEN ([phone])[facility] ([facility])[address] [place] [address] Sodium [Moles/Vol] 137 mmol/L Normal 136-145 [facility] Comment on above: Performed By: #### L AB15, [id number] ####[employer] Supervisor: KIMBERLY VIRGEN ([phone])[facility] ([facility])[address] [place] [address] Urea nitrogen [Mass/Vol] 3 mg/dL Low 8-21 [facility] Comment on above: Performed By: #### L AB15, [id number] ####[employer] Supervisor: KIMBERLY VIRGEN ([phone])[facility] ([facility])[address] [place] [address] Basic metabolic 1998 panelon 09-28-2024 Anion gap [Moles/Vol] 16 mmol/L High 3 - 13 mmol/L [facility] Calcium [Mass/Vol] 9 mg/dL 8.4 - 10. 2 mg/dL [facility] Chloride [Moles/Vol] 100 mmol/L 98 - 10 7 mmol/L [facility] CO2 [Moles/Vol] 21 mmol/L Low 22 - 29 mmol/L [facility] Creatinine [Mass/Vol] 0.68 mg/dL 0.57 - 1.11 mg/dL [facility] GFR/1.73 sq M.predicted (S/P/Bld) [Vol rate/Area] - PINF [facility] Comment on above: Calculation based on the Chronic Kidney Disease Epidemiology Collaboration (CKD-EPI) equation refit without adjustment for race Glucose [Mass/Vol] 80 mg/dL 74 - 100 mg/dL [facility] Interpretation and review of laboratory results Abnormal [facility] Potassium [Moles/Vol] 3.5 mmol/L 3.5 - 5.1 mmol/L [facility] Comment on above: Plasma potassium yuli ues may be up to 0.5 mmol/L lower than serum values. Sodium [Moles/Vol] 137 mmol/L 136 - 145 mmol/L [facility] Urea nitrogen [Mass/Vol] 3 mg/dL Low 8 - 21 mg/dL [facility] CBC W Auto Differential pane l (Bld)on 09-28-2024 Basophils (Bld) [#/Vol] 0 10*3/uL 0.0 - 0.2 10*3/uL [facility] Basophils/100 WBC (Bld) 0.7 % 0.0 - 2.0 % [facility] Eosinophils (Bld) [#/Vol] 0.1 10*3/uL 0.0 - 0.5 10*3/uL [facility] Eosinophils/100 WBC (Bld) 1.5 % 0.0 - 6.0 % [facility] Erythrocyte distribution width (RBC) [Ratio] 15.9 % High 11.5 - 15.0 % [facility] Hematocrit (Bld) [Volume fraction] 35.9 % 35.0 - 47.0 % [facility] Hemoglobin (Bld) [Mass/Vol] 11.5 g/dL Low 11.7 - 16.0 g/dL [facility] Immature granulocytes (Bld) [#/Vol] 0 10*3/uL NINF - 0.1 10*3/uL [facility] Immature granulocytes/100 WBC (Bld) 0.2 % 0.0 - 2.0 % [facility] Interpretation and review of laboratory results Abnormal [facility] Lymphocytes (Bld) [#/Vol] 0.9 10*3/uL Low 1.0 - 4.3 10*3/uL [facility] Lymphocytes/100 WBC (Bld) 20 % 15.0 - 45.0 % [facility] MCH (RBC) [Entitic mass] 25.7 pg Low 26. 0 - 34.0 pg [facility] MCHC (RBC) [Mass/Vol] 32 % 30.5 - 36.0 % [facility] MCV (RBC) [Entitic vol] 80.3 fL 77.0 - 99.0 fL [facility] Monocytes (Bld) [#/Vol] 0.5 10*3/uL 0.0 - 0.9 10*3/uL [facility] Monocytes/100 WBC (Bld) 11.3 % 5.0 - 13.0 % [facility] Neutrophils (Bld) [#/Vol] 3.1 10*3/uL 1.8 - 7.5 10*3/uL [facility] Neutrophils/100 WBC (Bld) 66.3 % 38.0 - 82.0 % [facility] Nucleated RBC/100 WBC (Bld) [Ratio] 0 % [facility] Platelet mean volume (Bld) [Entitic vol] 9.6 fL 9.0 - 12.7 fL [facility] Platelets (Bld) [#/Vol] 171 10*3/uL 140 - 440 10*3/uL [facility] RBC (Bld) [#/Vol] 4.47 10*6/uL 3.80 - 5.20 10*6/uL [facility] WBC (Bld) [#/Vol] 4.6 10*3/uL 3.6 - 10.7 10*3/uL [facility] CBC WITH AUTO DIFFERENTIALon 09-28-2024 Basophils (Bld) [#/Vol] 0.0 10*3/uL Normal 0.0-0.2 [facility] Comment on above: Performed By: #### L [id number] ####[employer] Supervisor: KIMBERLY VIREGN ([phone])[facility] ([facility])[address] [place] [address] Basophils/100 WBC (Bld) 0.7 % Normal 0.0-2.0 [facility] Comment on above: Performed By: #### L [id number] ####[employer] Supervisor: KIMBERLY VIRGEN ([phone])[facility])[address] [place] [address] [place] Eosinophils (Bld) [#/Vol] 0.1 10*3/uL Normal 0.0-0.5 [facility] Comment on above: Performed By: #### L [id number] ####[employer] Supervisor: KIMBERLY VIRGEN ([phone])[facility])[address] [place] [address] [place] Eosinophils/100 WBC (Bld) 1.5 % Normal 0.0-6.0 [facility] Comment on above: Performed By: #### L [id number] ####[employer] Supervisor: KIMBERLY [phone])[facility])[address] [place] [address] Erythrocyte distribution width (RBC) [Ratio] 15.9 % High 11.5-15.0 [facility] Comment on above: Performed By: #### L [id number] ####[employer] Supervisor: KIMBERLY VIRGEN ([phone])[facility])[address] [place] [address] Hematocrit (Bld) [Volume fraction] 35.9 % Normal 35.0-47.0 [facility] Comment on above: Performed By: #### L [id number] ####[employer] Supervisor: KIMBERLY VIRGEN ([phone])[facility])[address] [place] [address] Hemoglobin (Bld) [Mass/Vol] 11.5 g/dL Low 11.7-16.0 [facility] Comment on above: Performed By: #### L [id number] ####[employer] Supervisor: KIMBERLY VIRGEN ([phone])[facility])[address] [place] [address] IMMATURE GRANS % 0.2 % Normal 0.0-2.0 [facility] Comment on above: Performed By: #### L [id number] ####[employer] Supervisor: KIMBERLY VIRGEN ([phone])[facility])[address] [place] [address] IMMATURE GRANS ABSOLUTE 0.0 10*3/uL Normal <0.1 [facility] Comment on above: Performed By: #### L [id number] ####[employer] Supervisor: KIMBERLY VIRGEN ([phone])[facility])[address] [place] [address] Lymphocytes (Bld) [#/Vol] 0.9 10*3/uL Low 1.0-4.3 [facility] Comment on above: Performed By: #### L [id number] ####[employer] Supervisor: KIMBERLY VIRGEN ([phone])[facility])[address] [place] [address] Lymphocytes/100 WBC (Bld) 20.0 % Normal 15.0-45.0 [facility] Comment on above: Performed By: #### L [id number] ####[employer] Supervisor: KIMBERLY VIRGEN ([phone])[facility])[address] [place] [address] MCH (RBC) [Entitic mass] 25.7 pg Low 26.0-34.0 [facility] Comment on above: Performed By: #### L [id number] ####[employer] Supervisor: KIMBERLY VIRGEN ([phone])[facility])[address] [place] [address] MCHC 32.0 % Normal 30.5-36.0 [facility] Comment on above: Performed By: #### L [id number] ####[employer] Supervisor: KIMBERLY VIRGEN ([phone])[facility])[address] [place] [address] MCV (RBC) [Entitic vol] 80.3 fL Normal 77.0-99.0 [facility] Comment on above: Performed By: #### L [id number] ####[employer] Supervisor: KIMBERLY VIRGEN ([phone])[facility])[address] [place] [address] Monocytes (Bld) [#/Vol] 0.5 10*3/uL Normal 0.0-0.9 [facility] Comment on above: Performed By: #### L [id number] ####[employer] Supervisor: KIMBERLY VIRGEN ([phone])[facility])[address] [place] [address] Monocytes/100 WBC (Bld) 11.3 % Normal 5.0-13.0 [facility] Comment on above: Performed By: #### L [id number] ####[employer] Supervisor: KIMBERLY VIRGEN ([phone])[facility])[address] [place] [address] NEUTROPHILS ABSOLUTE 3.1 10*3/uL Normal 1.8-7.5 [facility] Comment on above: Performed By: #### L [id number] ####[employer] Supervisor: KIMBERLY VIRGEN ([phone])[facility] ([facility])[address] [place] [address] Neutrophils/100 WBC (Bld) 66.3 % Normal 38.0-82.0 [facility] Comment on above: Performed By: #### L [id number] ####[employer] Supervisor: KIMBERLY VIRGEN ([phone])[facility] ([facility])[address] [place] [address] NRBC 0.0 /100 WBCs Normal 0.0-2.0 [facility] Comment on above: Performed By: #### L [id number] ####[employer] Supervisor: KIMBERLY VIGREN ([phone])[facility] ([facility])[address] [place] [address] Platelet mean volume (Bld) [Entitic vol] 9.6 fL Normal 9.0-12.7 [facility] Comment on above: Performed By: #### L [id number] ####[employer] Supervisor: KIMBERLY VIRGEN ([phone])[facility] ([facility])[address] [place] [address] Platelets (Bld) [#/Vol] 171 10*3/uL Normal 140-440 [facility] Comment on above: Performed By: #### L [id number] ####[employer] Supervisor: KIMBERLY VIRGEN ([phone])[facility] ([facility])[address] [place] [address] RBC (Bld) [#/Vol] 4.47 10*6/uL Normal 3.80-5.20 [facility] Comment on above: Performed By: #### L [id number] ####Paper Products Supervisor: KIMBERLY VIRGEN ([phone])[facility] ([facility])[address] [place] [address] WBC (Bld) [#/Vol] 4.6 10*3/uL Normal 3.6-10.7 [facility] Comment on above: Performed By: #### L [id number] ####Paper Products Supervisor: KIMBERLY VIRGEN ([phone])[facility] ([facility])[address] [place] [address] Laboratory - Chemistry and C hemistry - challengeon 09-28-2024 Magnesium [Mass/Vol] 1.9 mg/dL 1.6 - 2 .6 mg/dL [facility] MAGNESIUMon 09-28-2024 Magnesium [Mass/Vol] 1.9 mg/dL Normal 1.6-2.6 [facility] Comment on above: Result Comment: RILEY Bass COMMENTS:Higher values can be expected in females during menses. Performed By: #### L AB15, [id number] ####Paper Products Supervisor: KIMBERLY VIRGEN ([phone])[facility])[address] [place] [address] Magnesium [Mass/Vol]on 09-28 Interpretation and review of laboratory results Normal [facility] Higher values can be expected in females during menses. [facility] Nursing Noteon 09-28-2024 Nursing Note Went over discharge paperwork with pt at bedside. Pt was agreeable and understood. IV taken out. Pt got self dressed and gathered own belongings. Pt declined transportation and walked self down to discharge with family member. Normal [facility] Progress Noteon 09-28-2024 Progress Note Normal [facility] BASIC METABOLIC PANELon 09-08 Anion gap [Moles/Vol] 12 mmol/L Normal 3-13 [facility] Comment on above: Performed By: #### L AB15, [id number] ####Paper Products Supervisor: KIMBERLY VIRGEN ([phone])[facility] ([facility])[address] [place] [address] Calcium [Mass/Vol] 8.3 mg/dL Low 8.4-10.2 [facility] Comment on above: Performed By: #### L AB15, [id number] ####Paper Products Supervisor: KIMBERLY VIRGEN ([phone])[facility] ([facility])[address] [place] [address] Chloride [Moles/Vol] 103 mmol/L Normal 98-107 [facility] Comment on above: Performed By: #### L AB15, [id number] ####Paper Products Supervisor: KIMBERLY VIRGEN ([phone])[facility])[address] [place] [address] CO2 [Moles/Vol] 21 mmol/L Low 22-29 [facility] Comment on above: Performed By: #### L AB15, [id number] ####Paper Products Supervisor: KIMBERLY VIRGEN ([phone])[facility])[address] [place] [address] Creatinine [Mass/Vol] 0.62 mg/dL Normal 0.57-1.11 [facility] Comment on above: Performed By: #### L AB15, [id number] ####Paper Products Supervisor: KIMBERLY VIRGEN ([phone])[facility])[address] [place] [address] GLOMERULAR FILTRATION RATE ML/MIN/1.73 SQ M.PREDICTED >90.0 Normal >60.0 [facility] Comment on above: Result Comment: Calc ulation based on the Chronic Kidney Disease Epidemiology Collaboration (CKD-EPI) equation refit without adjustment for race Performed By: #### L AB15, [id number] ####Paper Products Supervisor: KIMBERLY VIRGEN ([phone])[facility] ([facility])[address] [place] [address] Glucose [Mass/Vol] 78 mg/dL Normal 74-100 [facility] Comment on above: Performed By: #### L AB15, [id number] ####Paper Products Supervisor: KIMBERLY VIRGEN ([phone])[facility] ([facility])[address] [place] [address] Potassium [Moles/Vol] 3.4 mmol/L Low 3.5-5.1 [facility] Comment on above: Result Comment: [facility] potassium values may be up to 0.5 mmol/L lower than serum values. Performed By: #### L AB15, [id number] ####Paper Products Supervisor: KIMBERLY VIRGEN ([phone])[facility])[address] [place] [address] [place] Sodium [Moles/Vol] 136 mmol/L Normal 136-145 [facility] Comment on above: Performed By: #### L AB15, [id number] ####Paper Products Supervisor: KIMBERLY VIRGEN ([phone])[facility] ([facility])[address] [place] [address] Urea nitrogen [Mass/Vol] 4 mg/dL Low 8-21 [facility] Comment on above: Performed By: #### L AB15, [id number] ####Paper Products Supervisor: KIMBERLY VIRGEN ([phone])[facility] ([facility])[address] [place] [address] Basic metabolic 1998 panelon 09-27-2024 Anion gap [Moles/Vol] 12 mmol/L 3 - 13 mmol/L [facility] Calcium [Mass/Vol] 8.3 mg/dL Low 8.4 - 10. 2 mg/dL [facility] Chloride [Moles/Vol] 103 mmol/L 98 - 10 7 mmol/L [facility] CO2 [Moles/Vol] 21 mmol/L Low 22 - 29 mmol/L [facility] Creatinine [Mass/Vol] 0.62 mg/dL 0.57 - 1.11 mg/dL [facility] GFR/1.73 sq M.predicted (S/P/Bld) [Vol rate/Area] - PINF [facility] Comment on above: Calculation based on the Chronic Kidney Disease Epidemiology Collaboration (CKD-EPI) equation refit without adjustment for race Glucose [Mass/Vol] 78 mg/dL 74 - 100 mg/dL [facility] Interpretation and review of laboratory results Abnormal [facility] Potassium [Moles/Vol] 3.4 mmol/L Low 3.5 - 5.1 mmol/L [facility] Comment on above: Plasma potassium yuli ues may be up to 0.5 mmol/L lower than serum values. Sodium [Moles/Vol] 136 mmol/L 136 - 145 mmol/L [facility] Urea nitrogen [Mass/Vol] 4 mg/dL Low 8 - 21 mg/dL [facility] CBC W Auto Differential pane l (Bld)on 09-27-2024 Basophils (Bld) [#/Vol] 0 10*3/uL 0.0 - 0.2 10*3/uL [facility] Basophils/100 WBC (Bld) 0.4 % 0.0 - 2.0 % [facility] Eosinophils (Bld) [#/Vol] 0.1 10*3/uL 0.0 - 0.5 10*3/uL [facility] Eosinophils/100 WBC (Bld) 2.2 % 0.0 - 6.0 % [facility] Erythrocyte distribution width (RBC) [Ratio] 16.1 % High 11.5 - 15.0 % [facility] Hematocrit (Bld) [Volume fraction] 34.7 % Low 35.0 - 47.0 % [facility] Hemoglobin (Bld) [Mass/Vol] 10.8 g/dL Low 11.7 - 16.0 g/dL [facility] Immature granulocytes (Bld) [#/Vol] 0 10*3/uL NINF - 0.1 10*3/uL [facility] Immature granulocytes/100 WBC (Bld) 0.4 % 0.0 - 2.0 % [facility] Interpretation and review of laboratory results Abnormal [facility] Lymphocytes (Bld) [#/Vol] 0.9 10*3/uL Low 1.0 - 4.3 10*3/uL [facility] Lymphocytes/100 WBC (Bld) 16.8 % 15.0 - 45.0 % [facility] MCH (RBC) [Entitic mass] 25.6 pg Low 26. 0 - 34.0 pg [facility] MCHC (RBC) [Mass/Vol] 31.1 % 30.5 - 36.0 % [facility] MCV (RBC) [Entitic vol] 82.2 fL 77.0 - 99.0 fL [facility] Monocytes (Bld) [#/Vol] 0.6 10*3/uL 0.0 - 0.9 10*3/uL [facility] Monocytes/100 WBC (Bld) 10.2 % 5.0 - 13.0 % [facility] Neutrophils (Bld) [#/Vol] 3.8 10*3/uL 1.8 - 7.5 10*3/uL [facility] Neutrophils/100 WBC (Bld) 70 % 38.0 - 82.0 % [facility] Nucleated RBC/100 WBC (Bld) [Ratio] 0 % [facility] Platelet mean volume (Bld) [Entitic vol] 10.8 fL 9.0 - 12.7 fL [facility] Platelets (Bld) [#/Vol] 174 10*3/uL 140 - 440 10*3/uL [facility] RBC (Bld) [#/Vol] 4.22 10*6/uL 3.80 - 5.20 10*6/uL [facility] WBC (Bld) [#/Vol] 5.5 10*3/uL 3.6 - 10.7 10*3/uL [facility] CBC WITH AUTO DIFFERENTIALon 09-27-2024 Basophils (Bld) [#/Vol] 0.0 10*3/uL Normal 0.0-0.2 [facility] Comment on above: Performed By: #### L [id number] ####Paper Products Supervisor: KIMBERLY VIRGEN ([phone])[facility] ([facility])[address] [place] [address] Basophils/100 WBC (Bld) 0.4 % Normal 0.0-2.0 [facility] Comment on above: Performed By: #### L [id number] ####Paper Products Supervisor: KIMBERLY VIRGEN ([phone])[facility] ([facility])[address] [place] [address] Eosinophils (Bld) [#/Vol] 0.1 10*3/uL Normal 0.0-0.5 [facility] Comment on above: Performed By: #### L [id number] ####Paper Products Supervisor: KIMBERLY VIRGEN ([phone])[facility] ([facility])[address] [place] [address] Eosinophils/100 WBC (Bld) 2.2 % Normal 0.0-6.0 [facility] Comment on above: Performed By: #### L [id number] ####Paper Products Supervisor: KIMBERLY VIRGEN ([phone])[facility] ([facility])[address] [place] [address] Erythrocyte distribution width (RBC) [Ratio] 16.1 % High 11.5-15.0 [facility] Comment on above: Performed By: #### L [id number] ####Paper Products Supervisor: KIMBERLY VIRGEN ([phone])[facility] ([facility])[address] [place] [address] Hematocrit (Bld) [Volume fraction] 34.7 % Low 35.0-47.0 [facility] Comment on above: Performed By: #### L [id number] ####Paper Products Supervisor: KIMBERLY VIRGEN ([phone])[facility])[address] [place] [address] Hemoglobin (Bld) [Mass/Vol] 10.8 g/dL Low 11.7-16.0 [facility] Comment on above: Performed By: #### L [id number] ####Paper Products Supervisor: KIMBERLY VIRGEN ([phone])[facility])[address] [place] [address] IMMATURE GRANS % 0.4 % Normal 0.0-2.0 [facility] Comment on above: Performed By: #### L [id number] ####Paper Products Supervisor: KIMBERLY VIRGEN ([phone])[facility])[address] [place] [address] IMMATURE GRANS ABSOLUTE 0.0 10*3/uL Normal <0.1 [facility] Comment on above: Performed By: #### L [id number] ####Paper Products Supervisor: KIMBERLY VIRGEN ([phone])[facility])[address] [place] [address] Lymphocytes (Bld) [#/Vol] 0.9 10*3/uL Low 1.0-4.3 [facility] Comment on above: Performed By: #### L [id number] ####Paper Products Supervisor: KIMBERLY VIRGEN ([phone])[facility])[address] [place] [address] Lymphocytes/100 WBC (Bld) 16.8 % Normal 15.0-45.0 [facility] Comment on above: Performed By: #### L [id number] ####Paper Products Supervisor: KIMBERLY VIRGEN ([phone])[facility])[address] [place] [address] MCH (RBC) [Entitic mass] 25.6 pg Low 26.0-34.0 [facility] Comment on above: Performed By: #### L [id number] ####Paper Products Supervisor: KIMBERLY VIRGEN ([phone])[facility] ([facility])[address] [place] [address] MCHC 31.1 % Normal 30.5-36.0 [facility] Comment on above: Performed By: #### L [id number] ####Paper Products Supervisor: KIMBERLY VIRGEN ([phone])[facility] ([facility])[address] [place] [address] MCV (RBC) [Entitic vol] 82.2 fL Normal 77.0-99.0 [facility] Comment on above: Performed By: #### L [id number] ####Paper Products Supervisor: KIMBERLY VIRGEN ([phone])[facility])[address] [place] [address] Monocytes (Bld) [#/Vol] 0.6 10*3/uL Normal 0.0-0.9 [facility] Comment on above: Performed By: #### L [id number] ####Paper Products Supervisor: KIMBERLY VIRGEN ([phone])[facility] ([facility])[address] [place] [address] Monocytes/100 WBC (Bld) 10.2 % Normal 5.0-13.0 [facility] Comment on above: Performed By: #### L [id number] ####Paper Products Supervisor: KIMBERLY VIRGEN ([phone])[facility])[address] [place] [address] NEUTROPHILS ABSOLUTE 3.8 10*3/uL Normal 1.8-7.5 [facility] Comment on above: Performed By: #### L [id number] ####Paper Products Supervisor: KIMBERLY VIRGEN ([phone])[facility])[address] [place] [address] Neutrophils/100 WBC (Bld) 70.0 % Normal 38.0-82.0 [facility] Comment on above: Performed By: #### L [id number] ####Paper Products Supervisor: KIMBERLY VIRGEN ([phone])[facility] ([facility])[address] [place] [address] NRBC 0.0 /100 WBCs Normal 0.0-2.0 [facility] Comment on above: Performed By: #### L [id number] ####Paper Products Supervisor: KIMBERLY VIRGEN ([phone])[facility] ([facility])[address] [place] [address] Platelet mean volume (Bld) [Entitic vol] 10.8 fL Normal 9.0-12.7 [facility] Comment on above: Performed By: #### L [id number] ####Paper Products Supervisor: KIMBERLY VIRGEN ([phone])[facility] ([facility])[address] [place] [address] Platelets (Bld) [#/Vol] 174 10*3/uL Normal 140-440 [facility] Comment on above: Performed By: #### L [id number] ####Paper Products Supervisor: KIMBERLY VIRGEN ([phone])[facility] ([facility])[address] [place] [address] RBC (Bld) [#/Vol] 4.22 10*6/uL Normal 3.80-5.20 [facility] Comment on above: Performed By: #### L [id number] ####Paper Products Supervisor: KIMBERLY VIRGEN ([phone])[facility] ([facility])[address] [place] [address] WBC (Bld) [#/Vol] 5.5 10*3/uL Normal 3.6-10.7 [facility] Comment on above: Performed By: #### L [id number] ####Paper Products Supervisor: KIMBERLY VIRGEN ([phone])[facility] ([facility])[address] [place] [address] Laboratory - Chemistry and C hemistry - challengeon 09-27-2024 Magnesium [Mass/Vol] 1.7 mg/dL 1.6 - 2 .6 mg/dL [facility] MAGNESIUMon 09-27-2024 Magnesium [Mass/Vol] 1.7 mg/dL Normal 1.6-2.6 [facility] Comment on above: Result Comment: ORDE R COMMENTS:Higher values can be expected in females during menses. Performed By: #### L AB15, [id number] ####Paper Products Supervisor: KIMBERLY VIRGEN ([phone])[facility] ([id number] Magnesium [Mass/Vol]on 09-27 Interpretation and review of laboratory results Normal [facility] Higher values can be expected in females during menses. [facility] Nursing Noteon 09-27-2024 Nursing Note Patient received abo ut 10 meq of potassium but said it was burning to bad. Attempted to dilute with saline at 50 ml/hr but she still said it was burning and made me stop the infusion. Physician notified. Normal [facility] Progress Noteon 09-27-2024 Progress Note Normal [facility] Progress Note Normal [facility] XR ABDOMEN 1 VIEWon 09-27-19 XR ABDOMEN 1 VIEW Normal [facility] XR Abdomen Single viewon Impression: Nonspecific nonobstructive bowel gas pattern. Report Dictated on Electronically Signed By: Heaven Espinal MD Electronically Signed Date/Time: 09/27/2024 2:[address] [facility] Patient Name: ADDIS TORRES : 2000 Exam Date/Time: 09/27/2024 13:33 Procedure: XR ABDOMEN 1 VIEW Ordering Provider: RUBIN LATHA Reason For Exam: constipation Examination: Abdomen 1 view, 2 images Indication: constipation Findings: Bowel gas and small amount of stool noted in the distribution the colon. No significant small bowel dilatation.Small cluster of surgical clips in the right upper abdomen are most suggestive of prior cholecystectomy. Mild levoscoliosis of the spine. [facility] Heaven Espinal MD - 09/27/2024 Patient Name: ADDIS TORRES : 2000 Exam Date/Time: 09/27/2024 13:33 Procedure: XR ABDOMEN 1 VIEW Ordering Provider: RUBIN LATHA Reason For Exam: constipation Examination: Abdomen 1 view, 2 images Indication: constipation Findings: Bowel gas and small amount of stool noted in the distribution the colon. No significant small bowel dilatation.Small cluster of surgical clips in the right upper abdomen are most suggestive of prior cholecystectomy. Mild levoscoliosis of the spine. IMPRESSION: Impression: Nonspecific nonobstructive bowel gas pattern. Report Dictated on Electronically Signed By: Heaven Espinal MD Electronically Signed Date/Time: 09/27/2024 2:09 PM EST [facility] Radiology Study observation (narrative) [facility] XR Abdomen Single viewOrdere d By: Heaven Espinal on 09-27-2024 [facility] Work Phone: 30on 09-26-2024 30 Normal [facility] [id number] 09-26-2024 [id number] Plan is home with partner, no anticipated DC needs seen by [facility] at this time. Will follow. Normal [facility] CBC W Auto Differential pane l (Bld)Ordered By: Kylah Brush on 09-26-2024 Erythrocyte distribution width (RBC) [Ratio] 15.9 % High 11.5 - 15.0 % [facility] Hematocrit (Bld) [Volume fraction] 33.8 % Low 35.0 - 47.0 % [facility] Hemoglobin (Bld) [Mass/Vol] 10.7 g/dL Low 11.7 - 16.0 g/dL [facility] Interpretation and review of laboratory results Abnormal [facility] IPF 2 [facility] MCH (RBC) [Entitic mass] 25.5 pg Low 26. 0 - 34.0 pg [facility] MCHC (RBC) [Mass/Vol] 31.7 % 30.5 - 36.0 % [facility] MCV (RBC) [Entitic vol] 80.7 fL 77.0 - 99.0 fL [facility] Platelet mean volume (Bld) [Entitic vol] 10.7 fL 9.0 - 12.7 fL [facility] Platelets (Bld) [#/Vol] 135 10*3/uL Low 140 - 440 10*3/uL [facility] RBC (Bld) [#/Vol] 4.19 10*6/uL 3.80 - 5.20 10*6/uL [facility] WBC (Bld) [#/Vol] 4.4 10*3/uL 3.6 - 10.7 10*3/uL [facility] CBC WITH AUTO DIFFERENTIALon 09-26-2024 Erythrocyte distribution width (RBC) [Ratio] 15.9 % High 11.5-15.0 [facility] Comment on above: Performed By: #### Korey [id number], [id number] ####Paper Products Supervisor: KIMBERLY VIRGEN ([phone])[address] Hematocrit (Bld) [Volume fraction] 33.8 % Low 35.0-47.0 [facility] Comment on above: Performed By: #### Korey [id number], [id number] ####Paper Products Supervisor: KIMBERLY VIRGEN ([phone])[facility])[address] [place] [address] Hemoglobin (Bld) [Mass/Vol] 10.7 g/dL Low 11.7-16.0 [facility] Comment on above: Performed By: #### L [id number], [id number] ####Paper [employer] Supervisor: KIMBERLY VIRGEN ([phone])[address] IPF 2 Normal [facility] Comment on above: Performed By: #### L [id number], [id number] ####Paper Products Supervisor: KIMBERLY VIRGEN ([phone])[facility])[address] [place] [address] MCH (RBC) [Entitic mass] 25.5 pg Low 26.0-34.0 [facility] Comment on above: Performed By: #### L [id number], [id number] ####Paper [employer] Supervisor: KIMBERLY VIRGEN ([phone])[facility])[address] [place] [address] MCHC 31.7 % Normal 30.5-36.0 [facility] Comment on above: Performed By: #### L [id number], [id number] ####Paper Products Supervisor: KIMBERLY VIRGEN ([phone])[facility] ([facility])[address] [place] [address] MCV (RBC) [Entitic vol] 80.7 fL Normal 77.0-99.0 [facility] Comment on above: Performed By: #### Korey [id number], [id number] ####Paper Products Supervisor: KIMBERLY VIRGEN ([phone])[facility] ([facility])[address] [place] [address] Platelet mean volume (Bld) [Entitic vol] 10.7 fL Normal 9.0-12.7 [facility] Comment on above: Performed By: #### Korey [id number], [id number] ####Paper Products Supervisor: KIMBERLY IVRGEN ([phone])[facility] ([facility])[address] [place] [address] Platelets (Bld) [#/Vol] 135 10*3/uL Low 140-440 [facility] Comment on above: Performed By: #### Korey [id number], [id number] ####Paper Products Supervisor: KIMBERLY VIRGEN ([phone])[facility] ([facility])[address] [place] [address] RBC (Bld) [#/Vol] 4.19 10*6/uL Normal 3.80-5.20 [facility] Comment on above: Performed By: #### L [id number], [id number] ####Paper Products Supervisor: KIMBERLY VIRGEN ([phone])[facility] ([facility])[address] [place] [address] WBC (Bld) [#/Vol] 4.4 10*3/uL Normal 3.6-10.7 [facility] Comment on above: Performed By: #### L [id number], [id number] ####Paper Products Supervisor: KIMBERLY VIRGEN ([phone])[facility] ([facility])[address] [place] [address] COMPREHENSIVE METABOLIC PANE Gilberto 09-26-2024 Albumin [Mass/Vol] 3.2 g/dL Low 3.5-5.0 [facility] Comment on above: Performed By: #### L AB17, [id number] ####Paper Products Supervisor: KIMBERLY VIRGEN ([phone])[facility] ([facility])[address] [place] [address] ALP [Catalytic activity/Vol] 56 U/L Normal 40-150 [facility] Comment on above: Performed By: #### L AB17, [id number] ####Paper Products Supervisor: KIMBERLY VIRGEN ([phone])[facility])[address] [place] [address] ALT [Catalytic activity/Vol] 43 U/L High <30 [facility] Comment on above: Performed By: #### L AB17, [id number] ####Paper Products Supervisor: KIMBERLY VIRGEN ([phone])[facility])[address] [place] [address] Anion gap [Moles/Vol] 13 mmol/L Normal 3-13 [facility] Comment on above: Performed By: #### L AB17, [id number] ####Paper Products Supervisor: KIMBERLY VIRGEN ([phone])[facility] ([facility])[address] [place] [address] AST [Catalytic activity/Vol] 27 U/L Normal <34 [facility] Comment on above: Result Comment: TCPo tential interference from hemolysis Performed By: #### L AB17, [id number] ####Paper [employer] Supervisor: KIMBERLY VIRGEN ([phone])[facility] ([facility])[address] [place] [address] Bilirubin [Mass/Vol] 0.4 mg/dL Normal <1.2 [facility] Comment on above: Performed By: #### L AB17, [id number] ####[employer] Supervisor: KIMBERLY VIRGEN ([phone])[facility] ([facility])[address] [place] [address] Calcium [Mass/Vol] 8.4 mg/dL Normal 8.4-10.2 [facility] Comment on above: Performed By: #### L AB17, [id number] ####[employer] Supervisor: KIMBERLY VIRGEN ([phone])[facility])[address] [place] [address] Chloride [Moles/Vol] 102 mmol/L Normal 98-107 [facility] Comment on above: Performed By: #### L AB17, [id number] ####[employer] Supervisor: KIMBERLY VIRGEN ([phone])[facility] ([facility])[address] [place] [address] [place] CO2 [Moles/Vol] 22 mmol/L Normal 22-29 [facility] Comment on above: Performed By: #### L AB17, [id number] ####[employer] Supervisor: KIMBERLY VIRGEN ([phone])[facility])[address] [place] [address] Creatinine [Mass/Vol] 0.63 mg/dL Normal 0.57-1.11 [facility] Comment on above: Performed By: #### L AB17, [id number] ####[employer] Supervisor: KIMBERLY VIRGEN ([phone])[facility])[address] [place] [address] GLOMERULAR FILTRATION RATE ML/MIN/1.73 SQ M.PREDICTED >90.0 Normal >60.0 [facility] Comment on above: Result Comment: Calc ulation based on the Chronic Kidney Disease Epidemiology Collaboration (CKD-EPI) equation refit without adjustment for race Performed By: #### L AB17, [id number] ####[employer] Supervisor: KIMBERLY VIRGEN ([phone])[facility] ([facility])[address] [place] [address] [place] Glucose [Mass/Vol] 76 mg/dL Normal 74-100 [facility] Comment on above: Performed By: #### L AB17, [id number] ####[employer] Supervisor: KIMBERLY VIRGEN ([phone])[facility])[address] [place] [address] [place] Potassium [Moles/Vol] 3.3 mmol/L Low 3.5-5.1 [facility] Comment on above: Result Comment: [facility] potassium values may be up to 0.5 mmol/L lower than serum values. Performed By: #### L AB17, [id number] ####Paper [employer] Supervisor: KIMBERLY VIRGEN ([phone])[facility] ([facility])[address] [place] [address] Protein [Mass/Vol] 6.0 g/dL Low 6.4-8.3 [facility] Comment on above: Performed By: #### L AB17, [id number] ####[employer] Supervisor: KIMBERLY VIRGEN ([phone])[facility] ([facility])[address] [place] [address] Sodium [Moles/Vol] 137 mmol/L Normal 136-145 [facility] Comment on above: Performed By: #### L AB17, [id number] ####Paper Products Supervisor: KIMBERLY VIRGEN ([phone])[facility] ([facility])[address] [place] [address] Urea nitrogen [Mass/Vol] 3 mg/dL Low 8-21 [facility] Comment on above: Performed By: #### L AB17, [id number] ####[employer] Supervisor: KIMBERLY VIRGEN ([phone])[facility])[address] [place] [address] Comprehensive metabolic 1998 panelon 09-26-2024 Albumin [Mass/Vol] 3.2 g/dL Low 3.5 - 5.0 g/dL [facility] ALP [Catalytic activity/Vol] 56 U/L 40 - 150 U/L [facility] ALT [Catalytic activity/Vol] 43 U/L High NINF - 30 U/L [facility] Anion gap [Moles/Vol] 13 mmol/L 3 - 13 mmol/L [facility] AST [Catalytic activity/Vol] 27 U/L NINF - 34 U/L [facility] Comment on above: TC Potential interference from hemolysis Bilirubin [Mass/Vol] 0.4 mg/dL NINF - 1.2 mg/dL [facility] Calcium [Mass/Vol] 8.4 mg/dL 8.4 - 10. 2 mg/dL [facility] Chloride [Moles/Vol] 102 mmol/L 98 - 10 7 mmol/L [facility] CO2 [Moles/Vol] 22 mmol/L 22 - 29 mmol/L [facility] Creatinine [Mass/Vol] 0.63 mg/dL 0.57 - 1.11 mg/dL [facility] GFR/1.73 sq M.predicted (S/P/Bld) [Vol rate/Area] - PINF [facility] Comment on above: Calculation based on the Chronic Kidney Disease Epidemiology Collaboration (CKD-EPI) equation refit without adjustment for race Glucose [Mass/Vol] 76 mg/dL 74 - 100 mg/dL [facility] Interpretation and review of laboratory results Abnormal [facility] Potassium [Moles/Vol] 3.3 mmol/L Low 3.5 - 5.1 mmol/L [facility] Comment on above: Plasma potassium yuli ues may be up to 0.5 mmol/L lower than serum values. Protein [Mass/Vol] 6 g/dL Low 6.4 - 8.3 g/dL [facility] Sodium [Moles/Vol] 137 mmol/L 136 - 145 mmol/L [facility] Urea nitrogen [Mass/Vol] 3 mg/dL Low 8 - 21 mg/dL [facility] Laboratory - Chemistry and C hemistry - challengeon 09-26-2024 Magnesium [Mass/Vol] 1.8 mg/dL 1.6 - 2 .6 mg/dL [facility] Laboratory - Hematology and Cell countson 09-26-2024 Eosinophils (Bld) [#/Vol] 0.1 10*3/uL 0.0 - 0.5 10*3/uL [facility] Eosinophils/100 WBC (Bld) 2 % 0 - 6 % [facility] Lymphocytes (Bld) [#/Vol] 1.2 10*3/uL 1.0 - 4.3 10*3/uL [facility] Lymphocytes/100 WBC (Bld) 27 % 15 - 45 % [facility] Monocytes (Bld) [#/Vol] 0.2 10*3/uL 0.0 - 0.9 10*3/uL [facility] Monocytes/100 WBC (Bld) 5 % 5 - 13 % [facility] Neutrophils (Bld) [#/Vol] 2.9 10*3/uL 1.8 - 7.5 10*3/uL [facility] RBC morphology finding Nom (Bld) Normal [facility] Segmented neutrophils/100 WBC (Bld) 66 % 38 - 82 % [facility] MAGNESIUMon 09-26-2024 Magnesium [Mass/Vol] 1.8 mg/dL Normal 1.6-2.6 [facility] Comment on above: Result Comment: RILEY Bass COMMENTS:Higher values can be expected in females during menses. Performed By: #### L AB17, [id number] ####Paper [employer] Supervisor: KIMBERLY VIRGEN ([phone])[facility] ([facility])[address] [place] [address] MANUAL DIFFERENTIAL (CELLAVI NAZIA)on 09-26-2024 BAND NEUTROPHILS TOTAL PER COUNTED LEUKOCYTES BY MANUAL COUNT Normal [facility] Comment on above: Performed By: #### L [id number], [id number] ####Paper [employer] Supervisor: KIMBERLY VIRGEN ([phone])[facility] ([facility])[address] [place] [address] BASOPHILS TOTAL PER COUNTED LEUKOCYTES BY MANUAL COUNT Normal [facility] Comment on above: Performed By: #### L [id number], [id number] ####[employer] Supervisor: KIMBERLY VIRGEN ([phone])[facility] ([facility])[address] [place] [address] BLASTS TOTAL PER COUNTED LEUKOCYTES BY MANUAL COUNT Normal [facility] Comment on above: Performed By: #### L [id number], [id number] ####[employer] Supervisor: KIMBERLY VIRGEN ([phone])[facility] ([facility])[address] [place] [address] [place] EOSINOPHILS (10*3/UL) IN BLOOD-CELLAVISION 0.1 10*3/uL Normal 0.0-0.5 [facility] Comment on above: Performed By: #### L [id number], [id number] ####[employer] Supervisor: KIMBERLY VIRGEN ([phone])[facility] ([facility])[address] [place] [address] [place] EOSINOPHILS TOTAL PER COUNTED LEUKOCYTES BY MANUAL COUNT 2 High 0-1 [facility] Comment on above: Performed By: #### L [id number], [id number] ####[employer] Supervisor: KIMBERLY VIRGEN ([phone])[facility])[address] [place] [address] [place] EOSINOPHILS/100 LEUKOCYTES IN BLOOD-CELLAVISION 2 % Normal 0-6 [facility] Comment on above: Performed By: #### L [id number], [id number] ####[employer] Supervisor: KIMBERLY VIRGEN ([phone])[facility] ([facility])[address] [place] [address] [place] LYMPHOCYTES (10*3/UL) IN BLOOD-CELLAVISION 1.2 10*3/uL Normal 1.0-4.3 [facility] Comment on above: Performed By: #### L [id number], [id number] ####[employer] Supervisor: KIMBERLY VIRGEN ([phone])[facility] ([facility])[address] [place] [address] LYMPHOCYTES TOTAL PER COUNTED LEUKOCYTES BY MANUAL COUNT 26 Normal [facility] Comment on above: Performed By: #### Korey [id number], [id number] ####[employer] Supervisor: KIMBERLY VIRGEN ([phone])[facility] ([facility])[address] [place] [address] [place] LYMPHOCYTES/100 LEUKOCYTES IN BLOOD-CELLAVISION 27 % Normal 15-45 [facility] Comment on above: Performed By: #### L [id number], [id number] ####Paper [employer] Supervisor: KIMBERLY VIRGEN ([phone])[facility] ([facility])[address] [place] [address] [place] METAMYELOCYTES TOTAL PER COUNTED LEUKOCYTES BY MANUAL COUNT Normal [facility] Comment on above: Performed By: #### L [id number], [id number] ####Paper [employer] Supervisor: KIMBERLY VIRGEN ([phone])[facility] ([facility] [place] [address] [place] MONOCYTES (10*3/UL) IN BLOOD-CELLAVISION 0.2 10*3/uL Normal 0.0-0.9 [facility] Comment on above: Performed By: #### L [id number], [id number] ####Paper [employer] Supervisor: KIMBERLY VIRGEN ([phone])[facility] ([facility])[address] [place] [address] [place] MONOCYTES TOTAL PER COUNTED LEUKOCYTES BY MANUAL COUNT 5 [facility] Comment on above: Performed By: #### L [id number], [id number] ####[employer] Supervisor: KIMBERLY VIRGEN ([phone])[facility] ([facility])[address] [place] [address] [place] MONOCYTES/100 LEUKOCYTES IN BLOOD-PEDRO 5 % Normal 5-13 [facility] Comment on above: Performed By: #### L [id number], [id number] ####[employer] Supervisor: KIMBERLY VIRGEN ([phone])[facility])[address] [place] [address] MYELOCYTES COUNTED BY MANUAL COUNT [facility] Comment on above: Performed By: #### L [id number], [id number] ####Paper [employer] Supervisor: KIMBERLY VIRGEN ([phone])[facility] ([facility])[address] [place] [address] [place] NEUTROPHILS TOTAL PER COUNTED LEUKOCYTES BY MANUAL COUNT 65 [facility] Comment on above: Performed By: #### L [id number], [id number] ####[employer] Supervisor: KIMBERLY VIRGEN ([phone])[facility] ([facility])[address] [place] [address] [place] PROMYELOCYTES TOTAL PER COUNTED LEUKOCYTES BY MANUAL COUNT [facility] Comment on above: Performed By: #### L [id number], [id number] ####[employer] Supervisor: KIMBERLY VIRGEN ([phone])[facility] ([facility])[address] [place] [address] [place] RBC MORPHOLOGY IN BLOOD Normal Normal [facility] Comment on above: Performed By: #### L [id number], [id number] ####[employer] Supervisor: KIMBERLY VIRGEN ([phone])[facility] ([facility])[address] [place] [address] [place] SEGMENTED NEUTROPHILS (10*3/UL) IN BLOOD-CELLAVISION 2.9 10*3/uL Normal 1.8-7.5 [facility] Comment on above: Performed By: #### L [id number], [id number] ####[employer] Supervisor: KIMBERLY VIRGEN ([phone])[facility])[address] [place] [address] SEGMENTED NEUTROPHILS/100 LEUKOCYTES-CE 66 % Normal 38-82 [facility] Comment on above: Performed By: #### L [id number], [id number] ####[employer] Supervisor: KIMBERLY VIRGEN ([phone])[facility] ([facility])[address] [place] [address] UNCLASSIFIED CELLS TOTAL PER COUNTED LEUKOCYTES BY MANUAL COUNT Normal [facility] Comment on above: Performed By: #### L [id number], [id number] ####[employer] Supervisor: KIMBERLY VIRGEN ([phone])[facility])[address] [place] [address] VARIANT LYMPHOCYTES TOTAL PER COUNTED LEUKOCYTES BY MANUAL COUNT Normal [facility] Comment on above: Performed By: #### L [id number], [id number] ####[employer] Supervisor: KIMBERLY VIRGEN ([phone])[address] Magnesium [Mass/Vol]on 09-26 Interpretation and review of laboratory results Normal [facility] Higher values can be expected in females during menses. [facility] No Panel Informationon 09-26 Atypical Lymphocytes Manual [facility] Bands Manual [facility] Basophils Manual [facility] Blasts Manual [facility] Eosinophils Manual 2 High 0 - 1 [facility] Interpretation and review of laboratory results Abnormal [facility] Lymphocytes Manual 26 [facility] Metamyelocytes Manual [facility] Monocytes Manual 5 [facility] Myelocytes Manual [facility] Neutrophils Manual 65 [facility] Promyelocytes Manual [facility] Unclassified Cells, Manual [facility] Progress Noteon 09-26-2024 Progress Note Normal [facility] Progress Note Normal [facility] 30on 09-25-2024 30 Normal [facility] CBC W Auto Differential pane l (Bld)on 09-25-2024 Basophils (Bld) [#/Vol] 0 10*3/uL 0.0 - 0.2 10*3/uL [facility] Basophils/100 WBC (Bld) 0.3 % 0.0 - 2.0 % [facility] Eosinophils (Bld) [#/Vol] 0.1 10*3/uL 0.0 - 0.5 10*3/uL [facility] Eosinophils/100 WBC (Bld) 1.4 % 0.0 - 6.0 % [facility] Erythrocyte distribution width (RBC) [Ratio] 16.2 % High 11.5 - 15.0 % [facility] Hematocrit (Bld) [Volume fraction] 34.6 % Low 35.0 - 47.0 % [facility] Hemoglobin (Bld) [Mass/Vol] 11.2 g/dL Low 11.7 - 16.0 g/dL [facility] Immature granulocytes (Bld) [#/Vol] 0 10*3/uL NINF - 0.1 10*3/uL [facility] Immature granulocytes/100 WBC (Bld) 0.3 % 0.0 - 2.0 % [facility] Interpretation and review of laboratory results Abnormal [facility] Lymphocytes (Bld) [#/Vol] 1.4 10*3/uL 1.0 - 4.3 10*3/uL [facility] Lymphocytes/100 WBC (Bld) 24.7 % 15.0 - 45.0 % [facility] MCH (RBC) [Entitic mass] 25.5 pg Low 26. 0 - 34.0 pg [facility] MCHC (RBC) [Mass/Vol] 32.4 % 30.5 - 36.0 % [facility] MCV (RBC) [Entitic vol] 78.8 fL 77.0 - 99.0 fL [facility] Monocytes (Bld) [#/Vol] 0.7 10*3/uL 0.0 - 0.9 10*3/uL [facility] Monocytes/100 WBC (Bld) 11.2 % 5.0 - 13.0 % [facility] Neutrophils (Bld) [#/Vol] 3.6 10*3/uL 1.8 - 7.5 10*3/uL [facility] Neutrophils/100 WBC (Bld) 62.1 % 38.0 - 82.0 % [facility] Nucleated RBC/100 WBC (Bld) [Ratio] 0 % [facility] Platelet mean volume (Bld) [Entitic vol] 10.6 fL 9.0 - 12.7 fL [facility] Platelets (Bld) [#/Vol] 198 10*3/uL 140 - 440 10*3/uL [facility] RBC (Bld) [#/Vol] 4.39 10*6/uL 3.80 - 5.20 10*6/uL [facility] WBC (Bld) [#/Vol] 5.8 10*3/uL 3.6 - 10.7 10*3/uL [facility] CBC WITH AUTO DIFFERENTIALon 09-25-2024 Basophils (Bld) [#/Vol] 0.0 10*3/uL Normal 0.0-0.2 [facility] Comment on above: Performed By: #### L [id number] ####[employer] Supervisor: KIMBERLY VIRGEN ([phone])[facility])[address] [place] [address] Basophils/100 WBC (Bld) 0.3 % Normal 0.0-2.0 [facility] Comment on above: Performed By: #### L [id number] ####[employer] Supervisor: KMIBERLY VIRGEN ([phone])[facility])[address] [place] [address] Eosinophils (Bld) [#/Vol] 0.1 10*3/uL Normal 0.0-0.5 [facility] Comment on above: Performed By: #### L [id number] ####[employer] Supervisor: KIMBERLY VIRGEN ([phone])[facility])[address] [place] [address] Eosinophils/100 WBC (Bld) 1.4 % Normal 0.0-6.0 [facility] Comment on above: Performed By: #### L [id number] ####[employer] Supervisor: KIMBERLY VIRGEN ([phone])[facility])[address] [place] [address] Erythrocyte distribution width (RBC) [Ratio] 16.2 % High 11.5-15.0 [facility] Comment on above: Performed By: #### L [id number] ####[employer] Supervisor: KIMBERLY VIRGEN ([phone])[facility])[address] [place] [address] Hematocrit (Bld) [Volume fraction] 34.6 % Low 35.0-47.0 [facility] Comment on above: Performed By: #### L [id number] ####[employer] Supervisor: KIMBERLY VIRGEN ([phone])[facility])[address] [place] [address] Hemoglobin (Bld) [Mass/Vol] 11.2 g/dL Low 11.7-16.0 [facility] Comment on above: Performed By: #### L [id number] ####[employer] Supervisor: KIMBERLY VIRGEN ([phone])[address] IMMATURE GRANS % 0.3 % Normal 0.0-2.0 [facility] Comment on above: Performed By: #### L [id number] ####[employer] Supervisor: KIMBERLY VIRGEN ([phone])[facility])[address] [place] [address] IMMATURE GRANS ABSOLUTE 0.0 10*3/uL Normal <0.1 [facility] Comment on above: Performed By: #### L [id number] ####[employer] Supervisor: KIMBERLY VIRGEN ([phone])[address] Lymphocytes (Bld) [#/Vol] 1.4 10*3/uL Normal 1.0-4.3 [facility] Comment on above: Performed By: #### L [id number] ####[employer] Supervisor: KIMBERLY VIRGEN ([phone])[facility])[address] [place] [address] Lymphocytes/100 WBC (Bld) 24.7 % Normal 15.0-45.0 [facility] Comment on above: Performed By: #### L [id number] ####[employer] Supervisor: KIMBERLY VIRGEN ([phone])[facility] [address] MCH (RBC) [Entitic mass] 25.5 pg Low 26.0-34.0 [facility] Comment on above: Performed By: #### L [id number] ####[employer] Supervisor: KIMBERLY VIRGEN ([phone])[facility])[address] [place] [address] MCHC 32.4 % Normal 30.5-36.0 [facility] Comment on above: Performed By: #### L [id number] ####[employer] Supervisor: KIMBERLY VIRGEN ([phone])[facility])[address] [place] [address] MCV (RBC) [Entitic vol] 78.8 fL Normal 77.0-99.0 [facility] Comment on above: Performed By: #### L [id number] ####Paper [employer] Supervisor: KIMBERLY VIRGEN ([phone])[facility])[address] [place] [address] Monocytes (Bld) [#/Vol] 0.7 10*3/uL Normal 0.0-0.9 [facility] Comment on above: Performed By: #### L [id number] ####[employer] Supervisor: KIMBERLY VIRGEN ([phone])[facility])[address] [place] [address] Monocytes/100 WBC (Bld) 11.2 % Normal 5.0-13.0 [facility] Comment on above: Performed By: #### L [id number] ####[employer] Supervisor: KIMBERLY VIRGEN ([phone])[facility])[address] [place] [address] NEUTROPHILS ABSOLUTE 3.6 10*3/uL Normal 1.8-7.5 [facility] Comment on above: Performed By: #### L [id number] ####Paper [employer] Supervisor: KIMBERLY VIRGEN ([phone])[facility])[address] [place] [address] Neutrophils/100 WBC (Bld) 62.1 % Normal 38.0-82.0 [facility] Comment on above: Performed By: #### L [id number] ####[employer] Supervisor: KIMBERLY VIRGEN ([phone])[facility])[address] [place] [address] NRBC 0.0 /100 WBCs Normal 0.0-2.0 [facility] Comment on above: Performed By: #### L [id number] ####Paper [employer] Supervisor: KIMBERLY VIRGEN ([phone])[facility])[address] [place] [address] Platelet mean volume (Bld) [Entitic vol] 10.6 fL Normal 9.0-12.7 [facility] Comment on above: Performed By: #### L [id number] ####Paper [employer] Supervisor: KIMBERLY VIRGEN ([phone])[facility])[address] [place] [address] Platelets (Bld) [#/Vol] 198 10*3/uL Normal 140-440 [facility] Comment on above: Performed By: #### L [id number] ####[employer] Supervisor: KIMBERLY VIRGEN ([phone])[facility])[address] [place] [address] RBC (Bld) [#/Vol] 4.39 10*6/uL Normal 3.80-5.20 [facility] Comment on above: Performed By: #### L [id number] ####[employer] Supervisor: KIMBERLY VIRGEN ([phone])[facility])[address] [place] [address] WBC (Bld) [#/Vol] 5.8 10*3/uL Normal 3.6-10.7 [facility] Comment on above: Performed By: #### L [id number] ####[employer] Supervisor: KIMBERLY VIRGEN ([phone])[facility])[address] [place] [address] Progress Noteon 09-25-2024 Progress Note Normal [facility] 30on 09-24-2024 30 Normal [facility] CBC W Auto Differential pane l (Bld)on 09-24-2024 Basophils (Bld) [#/Vol] 0 10*3/uL 0.0 - 0.2 10*3/uL [facility] Basophils/100 WBC (Bld) 0.5 % 0.0 - 2.0 % [facility] Eosinophils (Bld) [#/Vol] 0 10*3/uL 0.0 - 0.5 10*3/uL [facility] Eosinophils/100 WBC (Bld) 0.5 % 0.0 - 6.0 % [facility] Erythrocyte distribution width (RBC) [Ratio] 16.2 % High 11.5 - 15.0 % [facility] Hematocrit (Bld) [Volume fraction] 34.9 % Low 35.0 - 47.0 % [facility] Hemoglobin (Bld) [Mass/Vol] 11.4 g/dL Low 11.7 - 16.0 g/dL [facility] Immature granulocytes (Bld) [#/Vol] 0 10*3/uL NINF - 0.1 10*3/uL [facility] Immature granulocytes/100 WBC (Bld) 0.4 % 0.0 - 2.0 % [facility] Interpretation and review of laboratory results Abnormal [facility] Lymphocytes (Bld) [#/Vol] 1 10*3/uL 1.0 - 4.3 10*3/uL [facility] Lymphocytes/100 WBC (Bld) 18.2 % 15.0 - 45.0 % [facility] MCH (RBC) [Entitic mass] 25.5 pg Low 26. 0 - 34.0 pg [facility] MCHC (RBC) [Mass/Vol] 32.7 % 30.5 - 36.0 % [facility] MCV (RBC) [Entitic vol] 78.1 fL 77.0 - 99.0 fL [facility] Monocytes (Bld) [#/Vol] 0.5 10*3/uL 0.0 - 0.9 10*3/uL [facility] Monocytes/100 WBC (Bld) 9.7 % 5.0 - 13.0 % [facility] Neutrophils (Bld) [#/Vol] 3.9 10*3/uL 1.8 - 7.5 10*3/uL [facility] Neutrophils/100 WBC (Bld) 70.7 % 38.0 - 82.0 % [facility] Nucleated RBC/100 WBC (Bld) [Ratio] 0 % [facility] Platelet mean volume (Bld) [Entitic vol] 9.7 fL 9.0 - 12.7 fL [facility] Platelets (Bld) [#/Vol] 201 10*3/uL 140 - 440 10*3/uL [facility] RBC (Bld) [#/Vol] 4.47 10*6/uL 3.80 - 5.20 10*6/uL [facility] WBC (Bld) [#/Vol] 5.5 10*3/uL 3.6 - 10.7 10*3/uL [facility] CBC WITH AUTO DIFFERENTIALon 09-24-2024 Basophils (Bld) [#/Vol] 0.0 10*3/uL Normal 0.0-0.2 [facility] Comment on above: Performed By: #### L [id number] ####Paper Products Supervisor: KIMBERLY VIRGEN ([phone])[facility])[address] [place] [address] Basophils/100 WBC (Bld) 0.5 % Normal 0.0-2.0 [facility] Comment on above: Performed By: #### L [id number] ####[employer] Supervisor: KIMBERLY VIRGEN ([phone])[facility])[address] [place] [address] Eosinophils (Bld) [#/Vol] 0.0 10*3/uL Normal 0.0-0.5 [facility] Comment on above: Performed By: #### L [id number] ####[employer] Supervisor: KIMBERLY VIRGEN ([phone])[facility])[address] [place] [address] Eosinophils/100 WBC (Bld) 0.5 % Normal 0.0-6.0 [facility] Comment on above: Performed By: #### L [id number] ####[employer] Supervisor: KIMBERLY VIRGEN ([phone])[facility])[address] [place] [address] Erythrocyte distribution width (RBC) [Ratio] 16.2 % High 11.5-15.0 [facility] Comment on above: Performed By: #### L [id number] ####Paper Products Supervisor: KIMBERLY VIRGEN ([phone])[address] Hematocrit (Bld) [Volume fraction] 34.9 % Low 35.0-47.0 [facility] Comment on above: Performed By: #### L [id number] ####Paper Products Supervisor: KIMBERLY VIRGEN ([phone])[facility])[address] [place] [address] Hemoglobin (Bld) [Mass/Vol] 11.4 g/dL Low 11.7-16.0 [facility] Comment on above: Performed By: #### L [id number] ####Paper Products Supervisor: KIMBERLY VIRGEN ([phone])[address] IMMATURE GRANS % 0.4 % Normal 0.0-2.0 [facility] Comment on above: Performed By: #### L [id number] ####Paper Products Supervisor: KIMBERLY VIRGEN ([phone])[address] IMMATURE GRANS ABSOLUTE 0.0 10*3/uL Normal <0.1 [facility] Comment on above: Performed By: #### L [id number] ####Paper Products Supervisor: KIMBERLY VIRGEN ([phone])[address] Lymphocytes (Bld) [#/Vol] 1.0 10*3/uL Normal 1.0-4.3 [facility] Comment on above: Performed By: #### L [id number] ####Paper Products Supervisor: KIMBERLY VIRGEN ([phone])[address] Lymphocytes/100 WBC (Bld) 18.2 % Normal 15.0-45.0 [facility] Comment on above: Performed By: #### L [id number] ####Paper Products Supervisor: KIMBERLY VIRGEN ([phone])[facility])[address] [place] [address] MCH (RBC) [Entitic mass] 25.5 pg Low 26.0-34.0 [facility] Comment on above: Performed By: #### L [id number] ####Paper Products Supervisor: KIMBERLY VIRGEN ([phone])[facility])[address] [place] [address] MCHC 32.7 % Normal 30.5-36.0 [facility] Comment on above: Performed By: #### L [id number] ####Paper Products Supervisor: KIMBERLY VIRGEN ([phone])[facility])[address] [place] [address] MCV (RBC) [Entitic vol] 78.1 fL Normal 77.0-99.0 [facility] Comment on above: Performed By: #### L [id number] ####Paper Products Supervisor: KIMBERLY VIRGEN ([phone])[facility])[address] [place] [address] Monocytes (Bld) [#/Vol] 0.5 10*3/uL Normal 0.0-0.9 [facility] Comment on above: Performed By: #### L [id number] ####Paper Products Supervisor: KIMBERLY VIRGEN ([phone])[facility])[address] [place] [address] Monocytes/100 WBC (Bld) 9.7 % Normal 5.0-13.0 [facility] Comment on above: Performed By: #### L [id number] ####Paper Products Supervisor: KIMBERLY VIRGEN ([phone])[facility])[address] [place] [address] NEUTROPHILS ABSOLUTE 3.9 10*3/uL Normal 1.8-7.5 [facility] Comment on above: Performed By: #### L [id number] ####Paper Products Supervisor: KIMBERLY VIRGEN ([phone])[facility])[address] [place] [address] Neutrophils/100 WBC (Bld) 70.7 % Normal 38.0-82.0 [facility] Comment on above: Performed By: #### L [id number] ####Paper Products Supervisor: KIMBERLY VIRGEN ([phone])[facility] ([facility])[address] [place] [address] NRBC 0.0 /100 WBCs Normal 0.0-2.0 [facility] Comment on above: Performed By: #### L [id number] ####Paper Products Supervisor: KIMBERLY VIRGEN ([phone])[facility] ([facility])[address] [place] [address] Platelet mean volume (Bld) [Entitic vol] 9.7 fL Normal 9.0-12.7 [facility] Comment on above: Performed By: #### L [id number] ####Paper Products Supervisor: KIMBERLY VIRGEN ([phone])[facility] ([facility])[address] [place] [address] Platelets (Bld) [#/Vol] 201 10*3/uL Normal 140-440 [facility] Comment on above: Performed By: #### L [id number] ####Paper Products Supervisor: KIMBERLY VIRGEN ([phone])[facility] ([facility])[address] [place] [address] RBC (Bld) [#/Vol] 4.47 10*6/uL Normal 3.80-5.20 [facility] Comment on above: Performed By: #### L [id number] ####Paper Products Supervisor: KIMBERLY VIRGEN ([phone])[facility] ([facility])[address] [place] [address] WBC (Bld) [#/Vol] 5.5 10*3/uL Normal 3.6-10.7 [facility] Comment on above: Performed By: #### L [id number] ####Paper Products Supervisor: KIMBERLY VIRGEN ([phone])[facility] ([facility])[address] [place] [address] COMPREHENSIVE METABOLIC PANE Gilberto 09-24-2024 Albumin [Mass/Vol] 3.6 g/dL Normal 3.5-5.0 [facility] Comment on above: Performed By: #### L AB17, [id number] ####Paper Products Supervisor: KIMBERLY VIRGEN ([phone])[facility] ([facility])[address] [place] [address] ALP [Catalytic activity/Vol] 54 U/L Normal 40-150 [facility] Comment on above: Performed By: #### L AB17, [id number] ####Paper Products Supervisor: KIMBERLY VIRGEN ([phone])[facility] ([facility])[address] [place] [address] ALT [Catalytic activity/Vol] 75 U/L High <30 [facility] Comment on above: Performed By: #### L AB17, [id number] ####Paper Products Supervisor: KIMBERLY VIRGEN ([phone])[facility] ([facility])[address] [place] [address] Anion gap [Moles/Vol] 9 mmol/L Normal 3-13 [facility] Comment on above: Performed By: #### L AB17, [id number] ####Paper Products Supervisor: KIMBERLY VIRGEN ([phone])[facility] ([facility])[address] [place] [address] AST [Catalytic activity/Vol] 43 U/L High <34 [facility] Comment on above: Performed By: #### L AB17, [id number] ####Paper Products Supervisor: KIMBERLY VIRGEN ([phone])[facility])[address] [place] [address] Bilirubin [Mass/Vol] 0.4 mg/dL Normal <1.2 [facility] Comment on above: Performed By: #### L AB17, [id number] ####Paper Products Supervisor: KIMBERLY VIRGEN ([phone])[facility])[address] [place] [address] Calcium [Mass/Vol] 8.8 mg/dL Normal 8.4-10.2 [facility] Comment on above: Performed By: #### L AB17, [id number] ####Paper Products Supervisor: KIMBERLY VIRGEN ([phone])[facility] ([facility])[address] [place] [address] Chloride [Moles/Vol] 100 mmol/L Normal 98-107 [facility] Comment on above: Performed By: #### L AB17, [id number] ####Paper Products Supervisor: KIMBERLY VIRGEN ([phone])[facility])[address] [place] [address] CO2 [Moles/Vol] 25 mmol/L Normal 22-29 [facility] Comment on above: Performed By: #### L AB17, [id number] ####Paper Products Supervisor: KIMBERLY VIRGEN ([phone])[facility])[address] [place] [address] Creatinine [Mass/Vol] 0.58 mg/dL Normal 0.57-1.11 [facility] Comment on above: Performed By: #### L AB17, [id number] ####Paper Products Supervisor: KIMBERLY VIRGEN ([phone])[facility])[address] [place] [address] GLOMERULAR FILTRATION RATE ML/MIN/1.73 SQ M.PREDICTED >90.0 Normal >60.0 [facility] Comment on above: Result Comment: Calc ulation based on the Chronic Kidney Disease Epidemiology Collaboration (CKD-EPI) equation refit without adjustment for race Performed By: #### L AB17, [id number] ####Paper Products Supervisor: KIMBERLY VIRGEN ([phone])[facility])[address] [place] [address] Glucose [Mass/Vol] 86 mg/dL Normal 74-100 [facility] Comment on above: Performed By: #### L AB17, [id number] ####Paper Products Supervisor: KIMBERLY VIRGEN ([phone])[facility])[address] [place] [address] Potassium [Moles/Vol] 3.0 mmol/L Low 3.5-5.1 [facility] Comment on above: Performed By: #### L AB17, [id number] ####Paper Products Supervisor: KIMBERLY [phone])[facility])[address] [place] [address] Protein [Mass/Vol] 6.3 g/dL Low 6.4-8.3 [facility] Comment on above: Performed By: #### L AB17, [id number] ####Paper Products Supervisor: KIMBERLY VIRGEN ([phone])[facility] ([facility])[address] [place] [address] Sodium [Moles/Vol] 134 mmol/L Low 136-145 [facility] Comment on above: Performed By: #### L AB17, [id number] ####Paper Products Supervisor: KIMBERLY VIRGEN ([phone])[facility] ([facility])[address] [place] [address] Urea nitrogen [Mass/Vol] mg/dL Low 8-21 [facility] Comment on above: Performed By: #### L AB17, [id number] ####Paper Products Supervisor: KIMBERLY VIRGEN ([phone])[facility] ([facility])[address] [place] [address] Comprehensive metabolic 1998 panelon 09-24-2024 Albumin [Mass/Vol] 3.6 g/dL 3.5 - 5.0 g/dL [facility] ALP [Catalytic activity/Vol] 54 U/L 40 - 150 U/L [facility] ALT [Catalytic activity/Vol] 75 U/L High NINF - 30 U/L [facility] Anion gap [Moles/Vol] 9 mmol/L 3 - 13 mmol/L [facility] AST [Catalytic activity/Vol] 43 U/L High NINF - 34 U/L [facility] Bilirubin [Mass/Vol] 0.4 mg/dL NINF - 1.2 mg/dL [facility] Calcium [Mass/Vol] 8.8 mg/dL 8.4 - 10. 2 mg/dL [facility] Chloride [Moles/Vol] 100 mmol/L 98 - 10 7 mmol/L [facility] CO2 [Moles/Vol] 25 mmol/L 22 - 29 mmol/L [facility] Creatinine [Mass/Vol] 0.58 mg/dL 0.57 - 1.11 mg/dL [facility] GFR/1.73 sq M.predicted (S/P/Bld) [Vol rate/Area] - PINF [facility] Comment on above: Calculation based on the Chronic Kidney Disease Epidemiology Collaboration (CKD-EPI) equation refit without adjustment for race Glucose [Mass/Vol] 86 mg/dL 74 - 100 mg/dL [facility] Interpretation and review of laboratory results Abnormal [facility] Potassium [Moles/Vol] 3 mmol/L Low 3.5 - 5.1 mmol/L [facility] Protein [Mass/Vol] 6.3 g/dL Low 6.4 - 8.3 g/dL [facility] Sodium [Moles/Vol] 134 mmol/L Low 136 - 145 mmol/L [facility] Urea nitrogen [Mass/Vol] mg/dL Low 8 - 21 mg/dL [facility] Laboratory - Chemistry and C hemistry - challengeon 09-24-2024 Magnesium [Mass/Vol] 1.7 mg/dL 1.6 - 2 .6 mg/dL [facility] MAGNESIUMon 09-24-2024 Magnesium [Mass/Vol] 1.7 mg/dL Normal 1.6-2.6 [facility] Comment on above: Result Comment: ORDE R COMMENTS:Higher values can be expected in females during menses. Performed By: #### L AB17, [id number] ####Paper Products Supervisor: KIMBERLY VIRGEN ([phone])[address] Magnesium [Mass/Vol]on 09-24 Interpretation and review of laboratory results Normal [facility] Higher values can be expected in females during menses. [facility] Nursing Noteon 09-24-2024 Nursing Note Pt.'s IV is no longe r working and is swelling around the site. Rapid tried cannulating patient twice via ultrasound and was unsuccessful. They will come back and retry. Patient is still refusing any PO meds. Normal [facility] Nursing Note Patient is refusing her meds because she it stating that the smell of the medication makes her vomit. Gave patient po Compazine to see if she will take her meds. Normal [facility] Progress Noteon 09-24-2024 Progress Note Normal [facility] CBC W Auto Differential pane l (Bld)Ordered By: Shahram Monroy on 09-23-2024 Basophils (Bld) [#/Vol] 0 10*3/uL 0.0 - 0.2 10*3/uL [facility] Basophils/100 WBC (Bld) 0.6 % 0.0 - 2.0 % [facility] Eosinophils (Bld) [#/Vol] 0.1 10*3/uL 0.0 - 0.5 10*3/uL [facility] Eosinophils/100 WBC (Bld) 1.4 % 0.0 - 6.0 % [facility] Erythrocyte distribution width (RBC) [Ratio] 16.3 % High 11.5 - 15.0 % [facility] Hematocrit (Bld) [Volume fraction] 42.1 % 35.0 - 47.0 % [facility] Hemoglobin (Bld) [Mass/Vol] 13.2 g/dL 11.7 - 16.0 g/dL [facility] Immature granulocytes (Bld) [#/Vol] 0 10*3/uL NINF - 0.1 10*3/uL [facility] Immature granulocytes/100 WBC (Bld) 0.4 % 0.0 - 2.0 % [facility] Interpretation and review of laboratory results Abnormal [facility] IPF 2 [facility] Lymphocytes (Bld) [#/Vol] 1.2 10*3/uL 1.0 - 4.3 10*3/uL [facility] Lymphocytes/100 WBC (Bld) 23.4 % 15.0 - 45.0 % [facility] MCH (RBC) [Entitic mass] 25.2 pg Low 26. 0 - 34.0 pg [facility] MCHC (RBC) [Mass/Vol] 31.4 % 30.5 - 36.0 % [facility] MCV (RBC) [Entitic vol] 80.5 fL 77.0 - 99.0 fL [facility] Monocytes (Bld) [#/Vol] 0.5 10*3/uL 0.0 - 0.9 10*3/uL [facility] Monocytes/100 WBC (Bld) 10.9 % 5.0 - 13.0 % [facility] Neutrophils (Bld) [#/Vol] 3.1 10*3/uL 1.8 - 7.5 10*3/uL [facility] Neutrophils/100 WBC (Bld) 63.3 % 38.0 - 82.0 % [facility] Nucleated RBC/100 WBC (Bld) [Ratio] 0 % [facility] Platelet mean volume (Bld) [Entitic vol] 9.8 fL 9.0 - 12.7 fL [facility] Platelets (Bld) [#/Vol] 207 10*3/uL 140 - 440 10*3/uL [facility] RBC (Bld) [#/Vol] 5.23 10*6/uL High 3.80 - 5.20 10*6/uL [facility] WBC (Bld) [#/Vol] 5 10*3/uL 3.6 - 10.7 10*3/uL [facility] CBC WITH AUTO DIFFERENTIALon 09-23-2024 Basophils (Bld) [#/Vol] 0.0 10*3/uL Normal 0.0-0.2 [facility] Comment on above: Performed By: #### L [id number] ####Paper Products Supervisor: KIMBERLY VIRGEN ([phone])[facility])[address] [place] [address] Basophils/100 WBC (Bld) 0.6 % Normal 0.0-2.0 [facility] Comment on above: Performed By: #### L [id number] ####Paper Products Supervisor: KIMBERLY VIRGEN ([phone])[facility])[address] [place] [address] Eosinophils (Bld) [#/Vol] 0.1 10*3/uL Normal 0.0-0.5 [facility] Comment on above: Performed By: #### L [id number] ####Paper Products Supervisor: KIMBERLY VIRGEN ([phone])[facility])[address] [place] [address] Eosinophils/100 WBC (Bld) 1.4 % Normal 0.0-6.0 [facility] Comment on above: Performed By: #### L [id number] ####Paper Products Supervisor: KIMBERLY VIRGEN ([phone])[facility])[address] [place] [address] Erythrocyte distribution width (RBC) [Ratio] 16.3 % High 11.5-15.0 [facility] Comment on above: Performed By: #### L [id number] ####Paper Products Supervisor: KIMBERLY VIRGEN ([phone])[address] Hematocrit (Bld) [Volume fraction] 42.1 % Normal 35.0-47.0 [facility] Comment on above: Performed By: #### L [id number] ####Paper Products Supervisor: KIMBERLY VIRGEN ([phone])[facility])[address] [place] [address] Hemoglobin (Bld) [Mass/Vol] 13.2 g/dL Normal 11.7-16.0 [facility] Comment on above: Performed By: #### L [id number] ####Paper Products Supervisor: KIMBERLY VIRGEN ([phone])[address] IMMATURE GRANS % 0.4 % Normal 0.0-2.0 [facility] Comment on above: Performed By: #### L [id number] ####Paper Products Supervisor: KIMBERLY VIRGEN ([phone])[address] IMMATURE GRANS ABSOLUTE 0.0 10*3/uL Normal <0.1 [facility] Comment on above: Performed By: #### L [id number] ####Paper Products Supervisor: KIMBERLY VIRGEN ([phone])[address] IPF 2 Normal [facility] Comment on above: Performed By: #### L [id number] ####Paper Products Supervisor: KIMBERLY VIRGEN ([phone])[address] Lymphocytes (Bld) [#/Vol] 1.2 10*3/uL Normal 1.0-4.3 [facility] Comment on above: Performed By: #### L [id number] ####Paper Products Supervisor: KIMBERLY [phone])[facility])[address] [place] [address] Lymphocytes/100 WBC (Bld) 23.4 % Normal 15.0-45.0 [facility] Comment on above: Performed By: #### L [id number] ####Paper Products Supervisor: KIMBERLY VIRGEN ([phone])[facility])[address] [place] [address] MCH (RBC) [Entitic mass] 25.2 pg Low 26.0-34.0 [facility] Comment on above: Performed By: #### L [id number] ####Paper Products Supervisor: KIMBERLY VIRGEN ([phone])[facility])[address] [place] [address] MCHC 31.4 % Normal 30.5-36.0 [facility] Comment on above: Performed By: #### L [id number] ####Paper Products Supervisor: KIMBERLY VIRGEN ([phone])[facility])[address] [place] [address] MCV (RBC) [Entitic vol] 80.5 fL Normal 77.0-99.0 [facility] Comment on above: Performed By: #### L [id number] ####Paper Products Supervisor: KIMBERLY VIRGEN ([phone])[facility])[address] [place] [address] Monocytes (Bld) [#/Vol] 0.5 10*3/uL Normal 0.0-0.9 [facility] Comment on above: Performed By: #### L [id number] ####Paper Products Supervisor: KIMBERLY VIRGEN ([phone])[facility])[address] [place] [address] Monocytes/100 WBC (Bld) 10.9 % Normal 5.0-13.0 [facility] Comment on above: Performed By: #### L [id number] ####Paper Products Supervisor: KIMBERLY VIRGEN ([phone])[facility])[address] [place] [address] NEUTROPHILS ABSOLUTE 3.1 10*3/uL Normal 1.8-7.5 [facility] Comment on above: Performed By: #### L [id number] ####Paper Products Supervisor: KIMBERLY VIRGEN ([phone])[facility])[address] [place] [address] Neutrophils/100 WBC (Bld) 63.3 % Normal 38.0-82.0 [facility] Comment on above: Performed By: #### L [id number] ####Paper Products Supervisor: KIMBERLY VIRGEN ([phone])[facility] ([facility])[address] [place] [address] NRBC 0.0 /100 WBCs Normal 0.0-2.0 [facility] Comment on above: Performed By: #### L [id number] ####Paper Products Supervisor: KIMBERLY VIRGEN ([phone])[facility])[address] [place] [address] Platelet mean volume (Bld) [Entitic vol] 9.8 fL Normal 9.0-12.7 [facility] Comment on above: Performed By: #### L [id number] ####Paper Products Supervisor: KIMBERLY VIRGEN ([phone])[facility] ([facility])[address] [place] [address] [place] Platelets (Bld) [#/Vol] 207 10*3/uL Normal 140-440 [facility] Comment on above: Performed By: #### L [id number] ####Paper Products Supervisor: KIMBERLY VIRGEN ([phone])[facility] ([facility])[address] [place] [address] RBC (Bld) [#/Vol] 5.23 10*6/uL High 3.80-5.20 [facility] Comment on above: Performed By: #### L [id number] ####Paper Products Supervisor: KIMBERLY VIRGEN ([phone])[facility])[address] [place] [address] WBC (Bld) [#/Vol] 5.0 10*3/uL Normal 3.6-10.7 [facility] Comment on above: Performed By: #### L [id number] ####Paper Products Supervisor: KIMBERLY VIRGEN ([phone])[facility] ([facility])[address] [place] [address] COMPREHENSIVE METABOLIC PANE Gilberto 09-23-2024 Albumin [Mass/Vol] 3.9 g/dL Normal 3.5-5.0 [facility] Comment on above: Performed By: #### L AB17, [id number] ####Paper Products Supervisor: KIMBERLY VIRGEN ([phone])[facility] ([facility])[address] [place] [address] ALP [Catalytic activity/Vol] 61 U/L Normal 40-150 [facility] Comment on above: Performed By: #### L AB17, [id number] ####Paper Products Supervisor: KIMBERLY VIRGEN ([phone])[facility] ([facility])[address] [place] [address] ALT [Catalytic activity/Vol] 79 U/L High <30 [facility] Comment on above: Performed By: #### L AB17, [id number] ####Paper Products Supervisor: KIMBERLY VIRGEN ([phone])[facility] ([facility])[address] [place] [address] Anion gap [Moles/Vol] 8 mmol/L Normal 3-13 [facility] Comment on above: Performed By: #### L AB17, [id number] ####Paper Products Supervisor: KIMBERLY VIRGEN ([phone])[facility] ([facility])[address] [place] [address] AST [Catalytic activity/Vol] 45 U/L High <34 [facility] Comment on above: Performed By: #### L AB17, [id number] ####Paper Products Supervisor: KIMBERLY VIRGEN ([phone])[facility] ([facility])[address] [place] [address] Bilirubin [Mass/Vol] 0.5 mg/dL Normal <1.2 [facility] Comment on above: Performed By: #### L AB17, [id number] ####Paper Products Supervisor: KIMBERLY VIRGEN ([phone])[facility] [place] [address] Calcium [Mass/Vol] 9.2 mg/dL Normal 8.4-10.2 [facility] Comment on above: Performed By: #### L AB17, [id number] ####Paper Products Supervisor: KIMBERLY VIRGEN ([phone])[facility])[address] [place] [address] Chloride [Moles/Vol] 104 mmol/L Normal 98-107 [facility] Comment on above: Performed By: #### L AB17, [id number] ####Paper Products Supervisor: KIMBERLY VIRGEN ([phone])[facility])[address] [place] [address] CO2 [Moles/Vol] 21 mmol/L Low 22-29 [facility] Comment on above: Performed By: #### L AB17, [id number] ####Paper Products Supervisor: KIMBERLY VIRGEN ([phone])[facility])[address] [place] [address] Creatinine [Mass/Vol] 0.66 mg/dL Normal 0.57-1.11 [facility] Comment on above: Performed By: #### L AB17, [id number] ####Paper Products Supervisor: KIMBERLY VIRGEN ([phone])[facility])[address] [place] [address] GLOMERULAR FILTRATION RATE ML/MIN/1.73 SQ M.PREDICTED >90.0 Normal >60.0 [facility] Comment on above: Result Comment: Calc ulation based on the Chronic Kidney Disease Epidemiology Collaboration (CKD-EPI) equation refit without adjustment for race Performed By: #### L AB17, [id number] ####[employer] Supervisor: KIMBERLY VIRGEN ([phone])[facility])[address] [place] [address] Glucose [Mass/Vol] 104 mg/dL High 74-100 [facility] Comment on above: Performed By: #### L AB17, [id number] ####Paper [employer] Supervisor: KIMBERLY [phone])[facility])[address] [place] [address] Potassium [Moles/Vol] 3.3 mmol/L Low 3.5-5.1 [facility] Comment on above: Result Comment: [facility] potassium values may be up to 0.5 mmol/L lower than serum values. Performed By: #### L AB17, [id number] ####Paper Products Supervisor: KIMBERLY VIRGEN ([phone])[facility] ([facility])[address] [place] [address] Protein [Mass/Vol] 7.2 g/dL Normal 6.4-8.3 [facility] Comment on above: Performed By: #### L AB17, [id number] ####Paper Products Supervisor: KIMBERLY VIRGEN ([phone])[facility])[address] [place] [address] Sodium [Moles/Vol] 133 mmol/L Low 136-145 [facility] Comment on above: Performed By: #### L AB17, [id number] ####Paper Products Supervisor: KIMBERLY VIRGEN ([phone])[facility] ([facility])[address] [place] [address] Urea nitrogen [Mass/Vol] mg/dL Low 8-21 [facility] Comment on above: Performed By: #### L AB17, [id number] ####Paper Products Supervisor: KIMBERLY VIRGEN ([phone])[facility])[address] [place] [address] Comprehensive metabolic 1998 panelon 09-23-2024 Albumin [Mass/Vol] 3.9 g/dL 3.5 - 5.0 g/dL [facility] ALP [Catalytic activity/Vol] 61 U/L 40 - 150 U/L [facility] ALT [Catalytic activity/Vol] 79 U/L High NINF - 30 U/L [facility] Anion gap [Moles/Vol] 8 mmol/L 3 - 13 mmol/L [facility] AST [Catalytic activity/Vol] 45 U/L High NINF - 34 U/L [facility] Bilirubin [Mass/Vol] 0.5 mg/dL NINF - 1.2 mg/dL [facility] Calcium [Mass/Vol] 9.2 mg/dL 8.4 - 10. 2 mg/dL [facility] Chloride [Moles/Vol] 104 mmol/L 98 - 10 7 mmol/L [facility] CO2 [Moles/Vol] 21 mmol/L Low 22 - 29 mmol/L [facility] Creatinine [Mass/Vol] 0.66 mg/dL 0.57 - 1.11 mg/dL [facility] GFR/1.73 sq M.predicted (S/P/Bld) [Vol rate/Area] - PINF [facility] Comment on above: Calculation based on the Chronic Kidney Disease Epidemiology Collaboration (CKD-EPI) equation refit without adjustment for race Glucose [Mass/Vol] 104 mg/dL High 74 - 100 mg/dL [facility] Interpretation and review of laboratory results Abnormal [facility] Potassium [Moles/Vol] 3.3 mmol/L Low 3.5 - 5.1 mmol/L [facility] Comment on above: Plasma potassium yuli ues may be up to 0.5 mmol/L lower than serum values. Protein [Mass/Vol] 7.2 g/dL 6.4 - 8.3 g/dL [facility] Sodium [Moles/Vol] 133 mmol/L Low 136 - 145 mmol/L [facility] Urea nitrogen [Mass/Vol] mg/dL Low 8 - 21 mg/dL [facility] Laboratory - Chemistry and C hemistry - challengeon 09-23-2024 Magnesium [Mass/Vol] 2 mg/dL 1.6 - 2 .6 mg/dL [facility] MAGNESIUMon 09-23-2024 Magnesium [Mass/Vol] 2.0 mg/dL Normal 1.6-2.6 [facility] Comment on above: Result Comment: RILEY R COMMENTS:Higher values can be expected in females during menses. Performed By: #### L AB17, [id number] ####Paper Products Supervisor: KIMBERLY VIRGEN ([phone])[facility] ([address] Magnesium [Mass/Vol]on 09-23 Interpretation and review of laboratory results Normal [facility] Higher values can be expected in females during menses. [facility] Progress Noteon 09-23-2024 Progress Note Normal [facility] Progress Note Normal [facility] 30on 09-22-2024 30 Normal [facility] 30 Normal [facility] CBC W Auto Differential pane l (Bld)Ordered By: Catherine Fernandez on 09-22-2024 Basophils (Bld) [#/Vol] 0 10*3/uL 0.0 - 0.2 10*3/uL [facility] Basophils/100 WBC (Bld) 0.2 % 0.0 - 2.0 % [facility] Eosinophils (Bld) [#/Vol] 0.1 10*3/uL 0.0 - 0.5 10*3/uL [facility] Eosinophils/100 WBC (Bld) 0.7 % 0.0 - 6.0 % [facility] Erythrocyte distribution width (RBC) [Ratio] 16.3 % High 11.5 - 15.0 % [facility] Hematocrit (Bld) [Volume fraction] 39.1 % 35.0 - 47.0 % [facility] Hemoglobin (Bld) [Mass/Vol] 12.7 g/dL 11.7 - 16.0 g/dL [facility] Immature granulocytes (Bld) [#/Vol] 0 10*3/uL NINF - 0.1 10*3/uL [facility] Immature granulocytes/100 WBC (Bld) 0.5 % 0.0 - 2.0 % [facility] Interpretation and review of laboratory results Abnormal [facility] Lymphocytes (Bld) [#/Vol] 1.3 10*3/uL 1.0 - 4.3 10*3/uL [facility] Lymphocytes/100 WBC (Bld) 15.6 % 15.0 - 45.0 % [facility] MCH (RBC) [Entitic mass] 25.5 pg Low 26. 0 - 34.0 pg [facility] MCHC (RBC) [Mass/Vol] 32.5 % 30.5 - 36.0 % [facility] MCV (RBC) [Entitic vol] 78.4 fL 77.0 - 99.0 fL [facility] Monocytes (Bld) [#/Vol] 0.7 10*3/uL 0.0 - 0.9 10*3/uL [facility] Monocytes/100 WBC (Bld) 9.2 % 5.0 - 13.0 % [facility] Neutrophils (Bld) [#/Vol] 5.9 10*3/uL 1.8 - 7.5 10*3/uL [facility] Neutrophils/100 WBC (Bld) 73.8 % 38.0 - 82.0 % [facility] Nucleated RBC/100 WBC (Bld) [Ratio] 0 % [facility] Platelet mean volume (Bld) [Entitic vol] 9.4 fL 9.0 - 12.7 fL [facility] Platelets (Bld) [#/Vol] 273 10*3/uL 140 - 440 10*3/uL [facility] RBC (Bld) [#/Vol] 4.99 10*6/uL 3.80 - 5.20 10*6/uL [facility] WBC (Bld) [#/Vol] 8.1 10*3/uL 3.6 - 10.7 10*3/uL [facility] CBC WITH AUTO DIFFERENTIALon 09-22-2024 Basophils (Bld) [#/Vol] 0.0 10*3/uL Normal 0.0-0.2 [facility] Comment on above: Performed By: #### L [id number] ####Paper Products Supervisor: KIMBERLY VIRGEN ([phone])[facility])[address] [place] [address] [place] Basophils/100 WBC (Bld) 0.2 % Normal 0.0-2.0 [facility] Comment on above: Performed By: #### L [id number] ####Paper Products Supervisor: KIMBERLY VIRGEN ([phone])[facility])[address] [place] [address] Eosinophils (Bld) [#/Vol] 0.1 10*3/uL Normal 0.0-0.5 [facility] Comment on above: Performed By: #### L [id number] ####Paper Products Supervisor: KIMBERLY VIRGEN ([phone])[facility] ([facility])[address] [place] [address] [place] Eosinophils/100 WBC (Bld) 0.7 % Normal 0.0-6.0 [facility] Comment on above: Performed By: #### L [id number] ####Paper Products Supervisor: KIMBERLY [phone])[facility] ([address] Erythrocyte distribution width (RBC) [Ratio] 16.3 % High 11.5-15.0 [facility] Comment on above: Performed By: #### L [id number] ####Paper Products Supervisor: KIMBERLY VIRGEN ([phone])[facility])[address] [place] [address] Hematocrit (Bld) [Volume fraction] 39.1 % Normal 35.0-47.0 [facility] Comment on above: Performed By: #### L [id number] ####Paper Products Supervisor: KIMBERLY VIRGEN ([phone])[address] Hemoglobin (Bld) [Mass/Vol] 12.7 g/dL Normal 11.7-16.0 [facility] Comment on above: Performed By: #### L [id number] ####Paper Products Supervisor: KIMBERLY VIRGEN ([phone])[facility])[address] [place] [address] IMMATURE GRANS % 0.5 % Normal 0.0-2.0 [facility] Comment on above: Performed By: #### L [id number] ####Paper Products Supervisor: KIMBERLY VIRGEN ([phone])[facility])[address] [place] [address] IMMATURE GRANS ABSOLUTE 0.0 10*3/uL Normal <0.1 [facility] Comment on above: Performed By: #### L [id number] ####Paper Products Supervisor: KIMBERLY VIRGEN ([phone])[facility])[address] [place] [address] Lymphocytes (Bld) [#/Vol] 1.3 10*3/uL Normal 1.0-4.3 [facility] Comment on above: Performed By: #### L [id number] ####Paper Products Supervisor: KIMBERLY VIRGEN ([phone])[facility])[address] [place] [address] Lymphocytes/100 WBC (Bld) 15.6 % Normal 15.0-45.0 [facility] Comment on above: Performed By: #### L [id number] ####Paper Products Supervisor: KIMBERLY VIRGEN ([phone])[facility])[address] [place] [address] MCH (RBC) [Entitic mass] 25.5 pg Low 26.0-34.0 [facility] Comment on above: Performed By: #### L [id number] ####Paper Products Supervisor: KIMBERLY VIRGEN ([phone])[facility])[address] [place] [address] MCHC 32.5 % Normal 30.5-36.0 [facility] Comment on above: Performed By: #### L [id number] ####Paper Products Supervisor: KIMBERLY VIRGEN ([phone])[facility])[address] [place] [address] MCV (RBC) [Entitic vol] 78.4 fL Normal 77.0-99.0 [facility] Comment on above: Performed By: #### L [id number] ####Paper Products Supervisor: KIMBERLY VIRGEN ([phone])[facility])[address] [place] [address] Monocytes (Bld) [#/Vol] 0.7 10*3/uL Normal 0.0-0.9 [facility] Comment on above: Performed By: #### L [id number] ####Paper Products Supervisor: KIMBERLY VIRGEN ([phone])[facility])[address] [place] [address] Monocytes/100 WBC (Bld) 9.2 % Normal 5.0-13.0 [facility] Comment on above: Performed By: #### L [id number] ####Paper Products Supervisor: KIMBERLY VIRGEN ([phone])[facility])[address] [place] [address] NEUTROPHILS ABSOLUTE 5.9 10*3/uL Normal 1.8-7.5 [facility] Comment on above: Performed By: #### L [id number] ####Paper Products Supervisor: KIMBERLY [phone])[facility] ([facility])[address] [place] [address] Neutrophils/100 WBC (Bld) 73.8 % Normal 38.0-82.0 [facility] Comment on above: Performed By: #### L [id number] ####Paper Products Supervisor: KIMBERLY VIRGEN ([phone])[facility] ([facility])[address] [place] [address] NRBC 0.0 /100 WBCs Normal 0.0-2.0 [facility] Comment on above: Performed By: #### L [id number] ####Paper Products Supervisor: KIMBERLY VIRGEN ([phone])[facility])[address] [place] [address] Platelet mean volume (Bld) [Entitic vol] 9.4 fL Normal 9.0-12.7 [facility] Comment on above: Performed By: #### L [id number] ####Paper Products Supervisor: KIMBERLY VIRGEN ([phone])[facility] ([facility])[address] [place] [address] Platelets (Bld) [#/Vol] 273 10*3/uL Normal 140-440 [facility] Comment on above: Performed By: #### L [id number] ####Paper Products Supervisor: KIMBERLY VIRGEN ([phone])[facility] ([facility])[address] [place] [address] [place] RBC (Bld) [#/Vol] 4.99 10*6/uL Normal 3.80-5.20 [facility] Comment on above: Performed By: #### L [id number] ####Paper Products Supervisor: KIMBERLY VIRGEN ([phone])[facility] ([facility])[address] [place] [address] [place] WBC (Bld) [#/Vol] 8.1 10*3/uL Normal 3.6-10.7 [facility] Comment on above: Performed By: #### L [id number] ####Paper Products Supervisor: KIMBERLY VIRGEN ([phone])[facility] ([facility])[address] [place] [address] COMPREHENSIVE METABOLIC PANE Gilberto 09-22-2024 Albumin [Mass/Vol] 4.0 g/dL Normal 3.5-5.0 [facility] Comment on above: Performed By: #### L AB17, [id number] ####Paper Products Supervisor: KIMBERLY VIRGEN ([phone])[facility] ([facility])[address] [place] [address] ALP [Catalytic activity/Vol] 59 U/L Normal 40-150 [facility] Comment on above: Performed By: #### L AB17, [id number] ####Paper Products Supervisor: KIMBERLY VIRGEN ([phone])[facility] ([facility])[address] [place] [address] ALT [Catalytic activity/Vol] 79 U/L High <30 [facility] Comment on above: Performed By: #### L AB17, [id number] ####Paper Products Supervisor: KIMBERLY VIRGEN ([phone])[facility] ([facility])[address] [place] [address] Anion gap [Moles/Vol] 12 mmol/L Normal 3-13 [facility] Comment on above: Performed By: #### L AB17, [id number] ####Paper Products Supervisor: KIMBERLY VIRGEN ([phone])[facility] ([facility])[address] [place] [address] AST [Catalytic activity/Vol] 40 U/L High <34 [facility] Comment on above: Performed By: #### L AB17, [id number] ####Paper Products Supervisor: KIMBERLY VIRGEN ([phone])[facility] ([facility])[address] [place] [address] [place] Bilirubin [Mass/Vol] 0.6 mg/dL Normal <1.2 [facility] Comment on above: Performed By: #### L AB17, [id number] ####Paper Products Supervisor: KIMBERLY VIRGEN ([phone])[facility] ([facility])[address] [place] [address] Calcium [Mass/Vol] 9.1 mg/dL Normal 8.4-10.2 [facility] Comment on above: Performed By: #### L AB17, [id number] ####Paper Products Supervisor: KIMBERLY VIRGEN ([phone])[facility])[address] [place] [address] Chloride [Moles/Vol] 100 mmol/L Normal 98-107 [facility] Comment on above: Performed By: #### L AB17, [id number] ####Paper Products Supervisor: KIMBERLY VIRGEN ([phone])[facility])[address] [place] [address] CO2 [Moles/Vol] 24 mmol/L Normal 22-29 [facility] Comment on above: Performed By: #### L AB17, [id number] ####Paper Products Supervisor: KIMBERLY VIRGEN ([phone])[facility])[address] [place] [address] Creatinine [Mass/Vol] 0.75 mg/dL Normal 0.57-1.11 [facility] Comment on above: Performed By: #### L AB17, [id number] ####Paper Products Supervisor: KIMBERLY VIRGEN ([phone])[facility])[address] [place] [address] GLOMERULAR FILTRATION RATE ML/MIN/1.73 SQ M.PREDICTED >90.0 Normal >60.0 [facility] Comment on above: Result Comment: Calc ulation based on the Chronic Kidney Disease Epidemiology Collaboration (CKD-EPI) equation refit without adjustment for race Performed By: #### L AB17, [id number] ####Paper Products Supervisor: KIMBERLY VIRGEN ([phone])[facility])[address] [place] [address] Glucose [Mass/Vol] 98 mg/dL Normal 74-100 [facility] Comment on above: Performed By: #### L AB17, [id number] ####Paper Products Supervisor: KIMBERLY VIRGEN ([phone])[facility])[address] [place] [address] Potassium [Moles/Vol] 3.3 mmol/L Low 3.5-5.1 [facility] Comment on above: Result Comment: Plas ma potassium values may be up to 0.5 mmol/L lower than serum values. Performed By: #### L AB17, [id number] ####Paper Products Supervisor: KIMBERLY VIRGEN ([phone])[facility] ([facility])[address] [place] [address] Protein [Mass/Vol] 7.2 g/dL Normal 6.4-8.3 [facility] Comment on above: Performed By: #### L AB17, [id number] ####Paper Products Supervisor: KIMBERLY VIRGEN ([phone])[facility] ([facility])[address] [place] [address] Sodium [Moles/Vol] 136 mmol/L Normal 136-145 [facility] Comment on above: Performed By: #### L AB17, [id number] ####Paper Products Supervisor: KIMBERLY VIRGEN ([phone])[facility] ([facility])[address] [place] [address] Urea nitrogen [Mass/Vol] mg/dL Low 8-21 [facility] Comment on above: Performed By: #### L AB17, [id number] ####Paper [employer] Supervisor: KIMBERLY VIRGEN ([phone])[facility])[address] [place] [address] Comprehensive metabolic 1998 panelon 09-22-2024 Albumin [Mass/Vol] 4 g/dL 3.5 - 5.0 g/dL [facility] ALP [Catalytic activity/Vol] 59 U/L 40 - 150 U/L [facility] ALT [Catalytic activity/Vol] 79 U/L High NINF - 30 U/L [facility] Anion gap [Moles/Vol] 12 mmol/L 3 - 13 mmol/L [facility] AST [Catalytic activity/Vol] 40 U/L High NINF - 34 U/L [facility] Bilirubin [Mass/Vol] 0.6 mg/dL NINF - 1.2 mg/dL [facility] Calcium [Mass/Vol] 9.1 mg/dL 8.4 - 10. 2 mg/dL [facility] Chloride [Moles/Vol] 100 mmol/L 98 - 10 7 mmol/L [facility] CO2 [Moles/Vol] 24 mmol/L 22 - 29 mmol/L [facility] Creatinine [Mass/Vol] 0.75 mg/dL 0.57 - 1.11 mg/dL [facility] GFR/1.73 sq M.predicted (S/P/Bld) [Vol rate/Area] - PINF [facility] Comment on above: Calculation based on the Chronic Kidney Disease Epidemiology Collaboration (CKD-EPI) equation refit without adjustment for race Glucose [Mass/Vol] 98 mg/dL 74 - 100 mg/dL [facility] Interpretation and review of laboratory results Abnormal [facility] Potassium [Moles/Vol] 3.3 mmol/L Low 3.5 - 5.1 mmol/L [facility] Comment on above: Plasma potassium yuli ues may be up to 0.5 mmol/L lower than serum values. Protein [Mass/Vol] 7.2 g/dL 6.4 - 8.3 g/dL [facility] Sodium [Moles/Vol] 136 mmol/L 136 - 145 mmol/L [facility] Urea nitrogen [Mass/Vol] mg/dL Low 8 - 21 mg/dL [facility] Laboratory - Chemistry and C hemistry - challengeon 09-22-2024 Magnesium [Mass/Vol] 2.2 mg/dL 1.6 - 2 .6 mg/dL [facility] MAGNESIUMon 09-22-2024 Magnesium [Mass/Vol] 2.2 mg/dL Normal 1.6-2.6 [facility] Comment on above: Result Comment: ORDSilvestre R COMMENTS:Higher values can be expected in females during menses. Performed By: #### L AB17, [id number] ####Paper Products Supervisor: KIMBERLY VIRGEN ([phone])[facility] ([address] Magnesium [Mass/Vol]on 09-22 Interpretation and review of laboratory results Normal [facility] Higher values can be expected in females during menses. [facility] Progress Noteon 09-22-2024 Progress Note Normal [facility] 30on 09-21-2024 30 Normal [facility] 30 Normal [facility] 30 Normal [facility] CBC W Auto Differential pane l (Bld)Ordered By: David Sheth on 09-21-2024 Basophils (Bld) [#/Vol] 0 10*3/uL 0.0 - 0.2 10*3/uL [facility] Basophils/100 WBC (Bld) 0.4 % 0.0 - 2.0 % [facility] Eosinophils (Bld) [#/Vol] 0.1 10*3/uL 0.0 - 0.5 10*3/uL [facility] Eosinophils/100 WBC (Bld) 1.2 % 0.0 - 6.0 % [facility] Erythrocyte distribution width (RBC) [Ratio] 16.3 % High 11.5 - 15.0 % [facility] Hematocrit (Bld) [Volume fraction] 38.1 % 35.0 - 47.0 % [facility] Hemoglobin (Bld) [Mass/Vol] 12.2 g/dL 11.7 - 16.0 g/dL [facility] Immature granulocytes (Bld) [#/Vol] 0 10*3/uL NINF - 0.1 10*3/uL [facility] Immature granulocytes/100 WBC (Bld) 0.4 % 0.0 - 2.0 % [facility] Interpretation and review of laboratory results Abnormal [facility] Lymphocytes (Bld) [#/Vol] 0.6 10*3/uL Low 1.0 - 4.3 10*3/uL [facility] Lymphocytes/100 WBC (Bld) 12.4 % Low 15.0 - 45.0 % [facility] MCH (RBC) [Entitic mass] 25.7 pg Low 26. 0 - 34.0 pg [facility] MCHC (RBC) [Mass/Vol] 32 % 30.5 - 36.0 % [facility] MCV (RBC) [Entitic vol] 80.2 fL 77.0 - 99.0 fL [facility] Monocytes (Bld) [#/Vol] 0.3 10*3/uL 0.0 - 0.9 10*3/uL [facility] Monocytes/100 WBC (Bld) 6.6 % 5.0 - 13.0 % [facility] Neutrophils (Bld) [#/Vol] 4.1 10*3/uL 1.8 - 7.5 10*3/uL [facility] Neutrophils/100 WBC (Bld) 79 % 38.0 - 82.0 % [facility] Nucleated RBC/100 WBC (Bld) [Ratio] 0 % [facility] Platelet mean volume (Bld) [Entitic vol] 9.4 fL 9.0 - 12.7 fL [facility] Platelets (Bld) [#/Vol] 248 10*3/uL 140 - 440 10*3/uL [facility] RBC (Bld) [#/Vol] 4.75 10*6/uL 3.80 - 5.20 10*6/uL [facility] WBC (Bld) [#/Vol] 5.2 10*3/uL 3.6 - 10.7 10*3/uL [facility] CBC WITH AUTO DIFFERENTIALon 09-21-2024 Basophils (Bld) [#/Vol] 0.0 10*3/uL Normal 0.0-0.2 [facility] Comment on above: Performed By: #### L [id number] ####[employer] Products Supervisor: KIMBERLY VIRGEN ([phone])[facility])[address] [place] [address] Basophils/100 WBC (Bld) 0.4 % Normal 0.0-2.0 [facility] Comment on above: Performed By: #### L [id number] ####Paper Products Supervisor: KIMBERLY VIRGEN ([phone])[facility])[address] [place] [address] Eosinophils (Bld) [#/Vol] 0.1 10*3/uL Normal 0.0-0.5 [facility] Comment on above: Performed By: #### L [id number] ####Paper [employer] Supervisor: KIMBERLY VIRGEN ([phone])[facility])[address] [place] [address] Eosinophils/100 WBC (Bld) 1.2 % Normal 0.0-6.0 [facility] Comment on above: Performed By: #### L [id number] ####[employer] Supervisor: KIMBERLY VIRGEN ([phone])[facility])[address] [place] [address] Erythrocyte distribution width (RBC) [Ratio] 16.3 % High 11.5-15.0 [facility] Comment on above: Performed By: #### L [id number] ####[employer] Supervisor: KIMBERLY VIRGEN ([phone])[facility])[address] [place] [address] Hematocrit (Bld) [Volume fraction] 38.1 % Normal 35.0-47.0 [facility] Comment on above: Performed By: #### L [id number] ####[employer] Supervisor: KIMBERLY VIRGEN ([phone])[facility])[address] [place] [address] Hemoglobin (Bld) [Mass/Vol] 12.2 g/dL Normal 11.7-16.0 [facility] Comment on above: Performed By: #### L [id number] ####[employer] Supervisor: KIMBERLY VIRGEN ([phone])[facility])[address] [place] [address] IMMATURE GRANS % 0.4 % Normal 0.0-2.0 [facility] Comment on above: Performed By: #### L [id number] ####Paper Products Supervisor: KIMBERLY VIRGEN ([phone])[facility])[address] [place] [address] IMMATURE GRANS ABSOLUTE 0.0 10*3/uL Normal <0.1 [facility] Comment on above: Performed By: #### L [id number] ####Paper Products Supervisor: KIMBERLY VIRGEN ([phone])[facility])[address] [place] [address] Lymphocytes (Bld) [#/Vol] 0.6 10*3/uL Low 1.0-4.3 [facility] Comment on above: Performed By: #### L [id number] ####Paper [employer] Supervisor: KIMBERLY VIRGEN ([phone])[address] Lymphocytes/100 WBC (Bld) 12.4 % Low 15.0-45.0 [facility] Comment on above: Performed By: #### L [id number] ####Paper [employer] Supervisor: KIMBERLY VIRGEN ([phone])[facility])[address] [place] [address] MCH (RBC) [Entitic mass] 25.7 pg Low 26.0-34.0 [facility] Comment on above: Performed By: #### L [id number] ####Paper Products Supervisor: KIMBERLY VIRGEN ([phone])[facility])[address] [place] [address] MCHC 32.0 % Normal 30.5-36.0 [facility] Comment on above: Performed By: #### L [id number] ####Paper [employer] Supervisor: KIMBERLY VIRGEN ([phone])[facility] HOSPITAL)[address] [place] [address] MCV (RBC) [Entitic vol] 80.2 fL Normal 77.0-99.0 [facility] Comment on above: Performed By: #### L [id number] ####Paper Products Supervisor: KIMBERLY VIRGEN ([phone])[facility] ([facility])[address] [place] [address] Monocytes (Bld) [#/Vol] 0.3 10*3/uL Normal 0.0-0.9 [facility] Comment on above: Performed By: #### L [id number] ####Paper Products Supervisor: KIMBERLY VIRGEN ([phone])[facility])[address] [place] [address] Monocytes/100 WBC (Bld) 6.6 % Normal 5.0-13.0 [facility] Comment on above: Performed By: #### L [id number] ####Paper Products Supervisor: KIMBERLY VIRGEN ([phone])[facility])[address] [place] [address] NEUTROPHILS ABSOLUTE 4.1 10*3/uL Normal 1.8-7.5 [facility] Comment on above: Performed By: #### L [id number] ####Paper Products Supervisor: KIMBERLY VIRGEN ([phone])[facility])[address] [place] [address] Neutrophils/100 WBC (Bld) 79.0 % Normal 38.0-82.0 [facility] Comment on above: Performed By: #### L [id number] ####Paper Products Supervisor: KIMBERLY VIRGEN ([phone])[facility])[address] [place] [address] NRBC 0.0 /100 WBCs Normal 0.0-2.0 [facility] Comment on above: Performed By: #### L [id number] ####Paper Products Supervisor: KIMBERLY VIRGEN ([phone])[facility] ([facility])[address] [place] [address] Platelet mean volume (Bld) [Entitic vol] 9.4 fL Normal 9.0-12.7 [facility] Comment on above: Performed By: #### L [id number] ####Paper Products Supervisor: KIMBERLY VIRGEN ([phone])[facility])[address] [place] [address] Platelets (Bld) [#/Vol] 248 10*3/uL Normal 140-440 [facility] Comment on above: Performed By: #### L [id number] ####Paper Products Supervisor: KIMBERLY VIRGEN ([phone])[facility])[address] [place] [address] RBC (Bld) [#/Vol] 4.75 10*6/uL Normal 3.80-5.20 [facility] Comment on above: Performed By: #### L [id number] ####Paper Products Supervisor: KIMBERLY VIRGEN ([phone])[facility])[address] [place] [address] WBC (Bld) [#/Vol] 5.2 10*3/uL Normal 3.6-10.7 [facility] Comment on above: Performed By: #### L [id number] ####Paper Products Supervisor: KIMBERLY VIRGEN ([phone])[facility])[address] [place] [address] COMPREHENSIVE METABOLIC PANE Gilberto 09-21-2024 Albumin [Mass/Vol] 3.8 g/dL Normal 3.5-5.0 [facility] Comment on above: Performed By: #### L AB17, [id number] ####Paper Products Supervisor: KIMBERLY VIRGEN ([phone])[facility] ([facility])[address] [place] [address] ALP [Catalytic activity/Vol] 59 U/L Normal 40-150 [facility] Comment on above: Performed By: #### L AB17, [id number] ####Paper Products Supervisor: KIMBERLY VIRGEN ([phone])[facility] ([facility])[address] [place] [address] ALT [Catalytic activity/Vol] 110 U/L High <30 [facility] Comment on above: Performed By: #### L AB17, [id number] ####Paper Products Supervisor: KIMBERLY VIRGEN ([phone])[facility] ([facility])[address] [place] [address] Anion gap [Moles/Vol] 11 mmol/L Normal 3-13 [facility] Comment on above: Performed By: #### L AB17, [id number] ####Paper Products Supervisor: KIMBERLY VIRGEN ([phone])[facility] ([facility])[address] [place] [address] AST [Catalytic activity/Vol] 84 U/L High <34 [facility] Comment on above: Performed By: #### L AB17, [id number] ####Paper Products Supervisor: KIMBERLY VIRGEN ([phone])[facility] ([facility])[address] [place] [address] Bilirubin [Mass/Vol] 0.6 mg/dL Normal <1.2 [facility] Comment on above: Performed By: #### L AB17, [id number] ####Paper Products Supervisor: KIMBERLY VIRGEN ([phone])[facility])[address] [place] [address] [place] Calcium [Mass/Vol] 8.8 mg/dL Normal 8.4-10.2 [facility] Comment on above: Performed By: #### L AB17, [id number] ####Paper Products Supervisor: KIMBERLY VIRGEN ([phone])[facility])[address] [place] [address] Chloride [Moles/Vol] 105 mmol/L Normal 98-107 [facility] Comment on above: Performed By: #### L AB17, [id number] ####Paper Products Supervisor: KIMBERLY VIRGEN ([phone])[facility])[address] [place] [address] CO2 [Moles/Vol] 20 mmol/L Low 22-29 [facility] Comment on above: Performed By: #### L AB17, [id number] ####Paper Products Supervisor: KIMBERLY VIRGEN ([phone])[facility])[address] [place] [address] Creatinine [Mass/Vol] 0.71 mg/dL Normal 0.57-1.11 [facility] Comment on above: Performed By: #### L AB17, [id number] ####Paper Products Supervisor: KIMBERLY VIRGEN ([phone])[facility])[address] [place] [address] GLOMERULAR FILTRATION RATE ML/MIN/1.73 SQ M.PREDICTED >90.0 Normal >60.0 [facility] Comment on above: Result Comment: Calc ulation based on the Chronic Kidney Disease Epidemiology Collaboration (CKD-EPI) equation refit without adjustment for race Performed By: #### L AB17, [id number] ####Paper Products Supervisor: KIMBERLY VIRGEN ([phone])[facility])[address] [place] [address] Glucose [Mass/Vol] 95 mg/dL Normal 74-100 [facility] Comment on above: Performed By: #### L AB17, [id number] ####Paper Products Supervisor: KIMBERLY VIRGEN ([phone])[facility])[address] [place] [address] Potassium [Moles/Vol] 3.2 mmol/L Low 3.5-5.1 [facility] Comment on above: Result Comment: [facility] potassium values may be up to 0.5 mmol/L lower than serum values. Performed By: #### L AB17, [id number] ####Paper Products Supervisor: KIMBERLY VIRGEN ([phone])[facility] ([facility])[address] [place] [address] Protein [Mass/Vol] 6.8 g/dL Normal 6.4-8.3 [facility] Comment on above: Performed By: #### L AB17, [id number] ####Paper Products Supervisor: KIMBERLY VIRGEN ([phone])[facility] ([facility])[address] [place] [address] Sodium [Moles/Vol] 136 mmol/L Normal 136-145 [facility] Comment on above: Performed By: #### L AB17, [id number] ####Paper Products Supervisor: KIMBERLY VIRGEN ([phone])[facility] ([facility])[address] [place] [address] Urea nitrogen [Mass/Vol] mg/dL Low 8-21 [facility] Comment on above: Performed By: #### L AB17, [id number] ####Paper Products Supervisor: KIMBERLY VIRGEN ([phone])[facility] ([facility])[address] [place] [address] Comprehensive metabolic 1998 panelon 09-21-2024 Albumin [Mass/Vol] 3.8 g/dL 3.5 - 5.0 g/dL [facility] ALP [Catalytic activity/Vol] 59 U/L 40 - 150 U/L [facility] ALT [Catalytic activity/Vol] 110 U/L High NINF - 30 U/L [facility] Anion gap [Moles/Vol] 11 mmol/L 3 - 13 mmol/L [facility] AST [Catalytic activity/Vol] 84 U/L High NINF - 34 U/L [facility] Bilirubin [Mass/Vol] 0.6 mg/dL NINF - 1.2 mg/dL [facility] Calcium [Mass/Vol] 8.8 mg/dL 8.4 - 10. 2 mg/dL [facility] Chloride [Moles/Vol] 105 mmol/L 98 - 10 7 mmol/L [facility] CO2 [Moles/Vol] 20 mmol/L Low 22 - 29 mmol/L [facility] Creatinine [Mass/Vol] 0.71 mg/dL 0.57 - 1.11 mg/dL [facility] GFR/1.73 sq M.predicted (S/P/Bld) [Vol rate/Area] - PINF [facility] Comment on above: Calculation based on the Chronic Kidney Disease Epidemiology Collaboration (CKD-EPI) equation refit without adjustment for race Glucose [Mass/Vol] 95 mg/dL 74 - 100 mg/dL [facility] Interpretation and review of laboratory results Abnormal [facility] Potassium [Moles/Vol] 3.2 mmol/L Low 3.5 - 5.1 mmol/L [facility] Comment on above: Plasma potassium yuli ues may be up to 0.5 mmol/L lower than serum values. Protein [Mass/Vol] 6.8 g/dL 6.4 - 8.3 g/dL [facility] Sodium [Moles/Vol] 136 mmol/L 136 - 145 mmol/L [facility] Urea nitrogen [Mass/Vol] mg/dL Low 8 - 21 mg/dL [facility] Laboratory - Chemistry and C hemistry - challengeon 09-21-2024 Magnesium [Mass/Vol] 1.5 mg/dL Low 1.6 - 2 .6 mg/dL [facility] MAGNESIUMon 09-21-2024 Magnesium [Mass/Vol] 1.5 mg/dL Low 1.6-2.6 [facility] Comment on above: Result Comment: RILEY Bass COMMENTS:Higher values can be expected in females during menses. Performed By: #### L AB17, [id number] ####Paper Products Supervisor: KIMBERLY VIRGEN ([phone])[address] Magnesium [Mass/Vol]on 09-21 Interpretation and review of laboratory results Abnormal [facility] Higher values can be expected in females during menses. [facility] Progress Noteon 09-21-2024 Progress Note Normal [facility] Progress Note Normal [facility] Progress Note Normal [facility] 30on 09-20-2024 30 Normal [facility] 30 Normal [facility] [id number] 09-20-2024 [id number] Per surgery consult note, no surgery, do no recommend surgical feeding tube at this time, recommend psych consult. TCC will follow. Normal [facility] CBC W Auto Differential pane l (Bld)Ordered By: Isaac Brar on 09-20-2024 Basophils (Bld) [#/Vol] 0 10*3/uL 0.0 - 0.2 10*3/uL [facility] Basophils/100 WBC (Bld) 0.7 % 0.0 - 2.0 % [facility] Eosinophils (Bld) [#/Vol] 0.1 10*3/uL 0.0 - 0.5 10*3/uL [facility] Eosinophils/100 WBC (Bld) 1.4 % 0.0 - 6.0 % [facility] Erythrocyte distribution width (RBC) [Ratio] 16.3 % High 11.5 - 15.0 % [facility] Hematocrit (Bld) [Volume fraction] 35.9 % 35.0 - 47.0 % [facility] Hemoglobin (Bld) [Mass/Vol] 11.4 g/dL Low 11.7 - 16.0 g/dL [facility] Immature granulocytes (Bld) [#/Vol] 0 10*3/uL NINF - 0.1 10*3/uL [facility] Immature granulocytes/100 WBC (Bld) 0.3 % 0.0 - 2.0 % [facility] Interpretation and review of laboratory results Abnormal [facility] Lymphocytes (Bld) [#/Vol] 1.2 10*3/uL 1.0 - 4.3 10*3/uL [facility] Lymphocytes/100 WBC (Bld) 21.3 % 15.0 - 45.0 % [facility] MCH (RBC) [Entitic mass] 25.4 pg Low 26. 0 - 34.0 pg [facility] MCHC (RBC) [Mass/Vol] 31.8 % 30.5 - 36.0 % [facility] MCV (RBC) [Entitic vol] 80.1 fL 77.0 - 99.0 fL [facility] Monocytes (Bld) [#/Vol] 0.6 10*3/uL 0.0 - 0.9 10*3/uL [facility] Monocytes/100 WBC (Bld) 10.3 % 5.0 - 13.0 % [facility] Neutrophils (Bld) [#/Vol] 3.8 10*3/uL 1.8 - 7.5 10*3/uL [facility] Neutrophils/100 WBC (Bld) 66 % 38.0 - 82.0 % [facility] Nucleated RBC/100 WBC (Bld) [Ratio] 0 % [facility] Platelet mean volume (Bld) [Entitic vol] 9.5 fL 9.0 - 12.7 fL [facility] Platelets (Bld) [#/Vol] 225 10*3/uL 140 - 440 10*3/uL [facility] RBC (Bld) [#/Vol] 4.48 10*6/uL 3.80 - 5.20 10*6/uL [facility] WBC (Bld) [#/Vol] 5.8 10*3/uL 3.6 - 10.7 10*3/uL [facility] CBC WITH AUTO DIFFERENTIALon 09-20-2024 Basophils (Bld) [#/Vol] 0.0 10*3/uL Normal 0.0-0.2 [facility] Comment on above: Performed By: #### L [id number] ####Paper Products Supervisor: KIMBERLY VIRGEN ([phone])[facility])[address] [place] [address] Basophils/100 WBC (Bld) 0.7 % Normal 0.0-2.0 [facility] Comment on above: Performed By: #### L [id number] ####Paper Products Supervisor: KIMBERLY VIRGEN ([phone])[facility])[address] [place] [address] [place] Eosinophils (Bld) [#/Vol] 0.1 10*3/uL Normal 0.0-0.5 [facility] Comment on above: Performed By: #### L [id number] ####Paper Products Supervisor: KIMBERLY VIRGEN ([phone])[facility])[address] [place] [address] [place] Eosinophils/100 WBC (Bld) 1.4 % Normal 0.0-6.0 [facility] Comment on above: Performed By: #### L [id number] ####Paper Products Supervisor: KIMBERLY [phone])[facility])[address] [place] [address] Erythrocyte distribution width (RBC) [Ratio] 16.3 % High 11.5-15.0 [facility] Comment on above: Performed By: #### L [id number] ####Paper Products Supervisor: KIMBERLY VIRGEN ([phone])[facility])[address] [place] [address] Hematocrit (Bld) [Volume fraction] 35.9 % Normal 35.0-47.0 [facility] Comment on above: Performed By: #### L [id number] ####Paper Products Supervisor: KIMBERLY VIRGEN ([phone])[facility])[address] [place] [address] Hemoglobin (Bld) [Mass/Vol] 11.4 g/dL Low 11.7-16.0 [facility] Comment on above: Performed By: #### L [id number] ####Paper Products Supervisor: KIMBERLY VIRGEN ([phone])[facility])[address] [place] [address] IMMATURE GRANS % 0.3 % Normal 0.0-2.0 [facility] Comment on above: Performed By: #### L [id number] ####Paper Products Supervisor: KIMBERLY VIRGEN ([phone])[facility])[address] [place] [address] IMMATURE GRANS ABSOLUTE 0.0 10*3/uL Normal <0.1 [facility] Comment on above: Performed By: #### L [id number] ####Paper Products Supervisor: KIMBERLY VIRGEN ([phone])[facility])[address] [place] [address] Lymphocytes (Bld) [#/Vol] 1.2 10*3/uL Normal 1.0-4.3 [facility] Comment on above: Performed By: #### L [id number] ####Paper Products Supervisor: KIMBERLY VIRGEN ([phone])[facility])[address] [place] [address] [place] Lymphocytes/100 WBC (Bld) 21.3 % Normal 15.0-45.0 [facility] Comment on above: Performed By: #### L [id number] ####Paper Products Supervisor: KIMBERLY VIRGEN ([phone])[facility])[address] [place] [address] MCH (RBC) [Entitic mass] 25.4 pg Low 26.0-34.0 [facility] Comment on above: Performed By: #### L [id number] ####Paper Products Supervisor: KIMBERLY VIRGEN ([phone])[facility])[address] [place] [address] MCHC 31.8 % Normal 30.5-36.0 [facility] Comment on above: Performed By: #### L [id number] ####Paper Products Supervisor: KIMBERLY VIRGEN ([phone])[facility])[address] [place] [address] MCV (RBC) [Entitic vol] 80.1 fL Normal 77.0-99.0 [facility] Comment on above: Performed By: #### L [id number] ####Paper Products Supervisor: KIMBERLY VIRGEN ([phone])[facility])[address] [place] [address] Monocytes (Bld) [#/Vol] 0.6 10*3/uL Normal 0.0-0.9 [facility] Comment on above: Performed By: #### L [id number] ####Paper Products Supervisor: KIMBERLY VIRGEN ([phone])[facility])[address] [place] [address] Monocytes/100 WBC (Bld) 10.3 % Normal 5.0-13.0 [facility] Comment on above: Performed By: #### L [id number] ####Paper Products Supervisor: KIMBERLY VIRGEN ([phone])[address] NEUTROPHILS ABSOLUTE 3.8 10*3/uL Normal 1.8-7.5 [facility] Comment on above: Performed By: #### L [id number] ####Paper Products Supervisor: KIMBERLY VIRGEN ([phone])[facility])[address] [place] [address] Neutrophils/100 WBC (Bld) 66.0 % Normal 38.0-82.0 [facility] Comment on above: Performed By: #### L [id number] ####Paper Products Supervisor: KIMBERLY VIRGEN ([phone])[facility])[address] [place] [address] NRBC 0.0 /100 WBCs Normal 0.0-2.0 [facility] Comment on above: Performed By: #### L [id number] ####Paper Products Supervisor: KIMBERLY VIRGEN ([phone])[facility])[address] [place] [address] Platelet mean volume (Bld) [Entitic vol] 9.5 fL Normal 9.0-12.7 [facility] Comment on above: Performed By: #### L [id number] ####Paper Products Supervisor: KIMBERLY VIRGEN ([phone])[facility])[address] [place] [address] Platelets (Bld) [#/Vol] 225 10*3/uL Normal 140-440 [facility] Comment on above: Performed By: #### L [id number] ####Paper Products Supervisor: KIMBERLY VIRGEN ([phone])[facility])[address] [place] [address] RBC (Bld) [#/Vol] 4.48 10*6/uL Normal 3.80-5.20 [facility] Comment on above: Performed By: #### L [id number] ####Paper Products Supervisor: KIMBERLY VIRGEN ([phone])[facility])[address] [place] [address] [place] WBC (Bld) [#/Vol] 5.8 10*3/uL Normal 3.6-10.7 [facility] Comment on above: Performed By: #### L [id number] ####Paper Products Supervisor: KIMBERLY VIRGEN ([phone])[facility])[address] [place] [address] COMPREHENSIVE METABOLIC PANE Gilberto 09-20-2024 Albumin [Mass/Vol] 3.4 g/dL Low 3.5-5.0 [facility] Comment on above: Performed By: #### L AB17, [id number] ####Paper Products Supervisor: KIMBERLY VIRGEN ([phone])[facility])[address] [place] [address] ALP [Catalytic activity/Vol] 52 U/L Normal 40-150 [facility] Comment on above: Performed By: #### L AB17, [id number] ####Paper Products Supervisor: KIMBERLY VIRGEN ([phone])[facility])[address] [place] [address] ALT [Catalytic activity/Vol] 77 U/L High <30 [facility] Comment on above: Performed By: #### L AB17, [id number] ####Paper Products Supervisor: KIMBERLY VIRGEN ([phone])[facility])[address] [place] [address] Anion gap [Moles/Vol] 15 mmol/L High 3-13 [facility] Comment on above: Performed By: #### L AB17, [id number] ####Paper Products Supervisor: KIMBERLY VIRGEN ([phone])[facility])[address] [place] [address] AST [Catalytic activity/Vol] 46 U/L High <34 [facility] Comment on above: Performed By: #### L AB17, [id number] ####Paper Products Supervisor: KIMBERLY VIRGEN ([phone])[facility])[address] [place] [address] [place] Bilirubin [Mass/Vol] 0.5 mg/dL Normal <1.2 [facility] Comment on above: Performed By: #### L AB17, [id number] ####Paper Products Supervisor: KIMBERLY VIRGEN ([phone])[facility])[address] [place] [address] Calcium [Mass/Vol] 8.5 mg/dL Normal 8.4-10.2 [facility] Comment on above: Performed By: #### L AB17, [id number] ####Paper Products Supervisor: KIMBERLY VIRGEN ([phone])[facility])[address] [place] [address] Chloride [Moles/Vol] 107 mmol/L Normal 98-107 [facility] Comment on above: Performed By: #### L AB17, [id number] ####Paper Products Supervisor: KIMBERLY VIRGEN ([phone])[facility])[address] [place] [address] CO2 [Moles/Vol] 16 mmol/L Low 22-29 [facility] Comment on above: Performed By: #### L AB17, [id number] ####Paper Products Supervisor: KIMBERLY VIRGEN ([phone])[facility])[address] [place] [address] Creatinine [Mass/Vol] 0.77 mg/dL Normal 0.57-1.11 [facility] Comment on above: Performed By: #### L AB17, [id number] ####Paper Products Supervisor: KIMBERLY VIRGEN ([phone])[facility])[address] [place] [address] GLOMERULAR FILTRATION RATE ML/MIN/1.73 SQ M.PREDICTED >90.0 Normal >60.0 [facility] Comment on above: Result Comment: Calc ulation based on the Chronic Kidney Disease Epidemiology Collaboration (CKD-EPI) equation refit without adjustment for race Performed By: #### L AB17, [id number] ####Paper Products Supervisor: KIMBERLY VIRGEN ([phone])[facility])[address] [place] [address] [place] Glucose [Mass/Vol] 69 mg/dL Low 74-100 [facility] Comment on above: Performed By: #### L AB17, [id number] ####Paper Products Supervisor: KIMBERLY VIRGEN ([phone])[facility])[address] [place] [address] Potassium [Moles/Vol] 2.8 mmol/L Low 3.5-5.1 [facility] Comment on above: Result Comment: [facility] potassium values may be up to 0.5 mmol/L lower than serum values. Performed By: #### L AB17, [id number] ####Paper Products Supervisor: KIMBERLY VIRGEN ([phone])[facility])[address] [place] [address] Protein [Mass/Vol] 6.2 g/dL Low 6.4-8.3 [facility] Comment on above: Performed By: #### L AB17, [id number] ####Paper Products Supervisor: KIMBERLY VIRGEN ([phone])[facility])[address] [place] [address] Sodium [Moles/Vol] 138 mmol/L Normal 136-145 [facility] Comment on above: Performed By: #### L [id number], [id number] ####[employer] Supervisor: KIMBERLY VIRGEN ([phone])[facility] ([facility])[address] [place] [address] Urea nitrogen [Mass/Vol] mg/dL Low 8-21 [facility] Comment on above: Performed By: #### L [id number], [id number] ####[employer] Supervisor: KIMBERLY VIRGEN ([phone])[facility])[address] [place] [address] Comprehensive metabolic 1998 panelon 09-20-2024 Albumin [Mass/Vol] 3.4 g/dL Low 3.5 - 5.0 g/dL [facility] ALP [Catalytic activity/Vol] 52 U/L 40 - 150 U/L [facility] ALT [Catalytic activity/Vol] 77 U/L High NINF - 30 U/L [facility] Anion gap [Moles/Vol] 15 mmol/L High 3 - 13 mmol/L [facility] AST [Catalytic activity/Vol] 46 U/L High NINF - 34 U/L [facility] Bilirubin [Mass/Vol] 0.5 mg/dL NINF - 1.2 mg/dL [facility] Calcium [Mass/Vol] 8.5 mg/dL 8.4 - 10. 2 mg/dL [facility] Chloride [Moles/Vol] 107 mmol/L 98 - 10 7 mmol/L [facility] CO2 [Moles/Vol] 16 mmol/L Low 22 - 29 mmol/L [facility] Creatinine [Mass/Vol] 0.77 mg/dL 0.57 - 1.11 mg/dL [facility] GFR/1.73 sq M.predicted (S/P/Bld) [Vol rate/Area] - PINF [facility] Comment on above: Calculation based on the Chronic Kidney Disease Epidemiology Collaboration (CKD-EPI) equation refit without adjustment for race Glucose [Mass/Vol] 69 mg/dL Low 74 - 100 mg/dL [facility] Interpretation and review of laboratory results Abnormal [facility] [facility] Potassium [Moles/Vol] 2.8 mmol/L Low 3.5 - 5.1 mmol/L [facility] Comment on above: Plasma potassium yuli ues may be up to 0.5 mmol/L lower than serum values. Protein [Mass/Vol] 6.2 g/dL Low 6.4 - 8.3 g/dL [facility] Sodium [Moles/Vol] 138 mmol/L 136 - 145 mmol/L [facility] Urea nitrogen [Mass/Vol] mg/dL Low 8 - 21 mg/dL [facility] Consulton 09-20-2024 Consult Normal [facility] Laboratory - Chemistry and C hemistry - challengeon 09-20-2024 Magnesium [Mass/Vol] 1.7 mg/dL 1.6 - 2 .6 mg/dL [facility] MAGNESIUMon 09-20-2024 Magnesium [Mass/Vol] 1.7 mg/dL Normal 1.6-2.6 [facility] Comment on above: Result Comment: RILEY Bass COMMENTS:Higher values can be expected in females during menses. Performed By: #### L AB17, [id number] ####Paper Products Supervisor: KIMBERLY VIRGEN ([phone])[facility] ([address] Magnesium [Mass/Vol]on 09-20 Interpretation and review of laboratory results Normal [facility] Higher values can be expected in females during menses. [facility] Nursing Noteon 09-20-2024 Nursing Note Pt transferred to [id number] from [facility]. Pt alert and orient x4. CARBAJAL. Reports 10 abdominal pain. Toradol offered, but refused. Requesting Dilaudid for pain. [place] sent message by secure chat. Awaiting response. Normal [facility] Progress Noteon 09-20-2024 Progress Note Normal [facility] 30on 09-19-2024 30 Normal [facility] [id number] 09-19-2024 [id number] TCC completed chart review. Clear liquid diet. Plan is home. TCC will follow for needs. No anticipated DC needs seen. [facility] CBC W Auto Differential pane l (Bld)on 09-19-2024 Basophils (Bld) [#/Vol] 0 10*3/uL 0.0 - 0.2 10*3/uL [facility] Basophils/100 WBC (Bld) 0.6 % 0.0 - 2.0 % [facility] Eosinophils (Bld) [#/Vol] 0.1 10*3/uL 0.0 - 0.5 10*3/uL [facility] Eosinophils/100 WBC (Bld) 1.5 % 0.0 - 6.0 % [facility] Erythrocyte distribution width (RBC) [Ratio] 16.5 % High 11.5 - 15.0 % [facility] Hematocrit (Bld) [Volume fraction] 34.9 % Low 35.0 - 47.0 % [facility] Hemoglobin (Bld) [Mass/Vol] 11.3 g/dL Low 11.7 - 16.0 g/dL [facility] Immature granulocytes (Bld) [#/Vol] 0 10*3/uL NINF - 0.1 10*3/uL [facility] Immature granulocytes/100 WBC (Bld) 0.4 % 0.0 - 2.0 % [facility] Interpretation and review of laboratory results Abnormal [facility] Lymphocytes (Bld) [#/Vol] 1.4 10*3/uL 1.0 - 4.3 10*3/uL [facility] Lymphocytes/100 WBC (Bld) 25.7 % 15.0 - 45.0 % [facility] MCH (RBC) [Entitic mass] 25.6 pg Low 26. 0 - 34.0 pg [facility] MCHC (RBC) [Mass/Vol] 32.4 % 30.5 - 36.0 % [facility] MCV (RBC) [Entitic vol] 79.1 fL 77.0 - 99.0 fL [facility] Monocytes (Bld) [#/Vol] 0.5 10*3/uL 0.0 - 0.9 10*3/uL [facility] Monocytes/100 WBC (Bld) 9.5 % 5.0 - 13.0 % [facility] Neutrophils (Bld) [#/Vol] 3.3 10*3/uL 1.8 - 7.5 10*3/uL [facility] Neutrophils/100 WBC (Bld) 62.3 % 38.0 - 82.0 % [facility] Nucleated RBC/100 WBC (Bld) [Ratio] 0 % [facility] Platelet mean volume (Bld) [Entitic vol] 9.4 fL 9.0 - 12.7 fL [facility] Platelets (Bld) [#/Vol] 234 10*3/uL 140 - 440 10*3/uL [facility] RBC (Bld) [#/Vol] 4.41 10*6/uL 3.80 - 5.20 10*6/uL [facility] WBC (Bld) [#/Vol] 5.3 10*3/uL 3.6 - 10.7 10*3/uL [facility] CBC WITH AUTO DIFFERENTIALon 09-19-2024 Basophils (Bld) [#/Vol] 0.0 10*3/uL Normal 0.0-0.2 [facility] Comment on above: Performed By: #### L [id number] ####Paper Products Supervisor: KIMBERLY VIRGEN ([phone])[address] Basophils/100 WBC (Bld) 0.6 % Normal 0.0-2.0 [facility] Comment on above: Performed By: #### L [id number] ####Paper Products Supervisor: KIMBERLY VIRGEN ([phone])[facility])[address] [place] [address] Eosinophils (Bld) [#/Vol] 0.1 10*3/uL Normal 0.0-0.5 [facility] Comment on above: Performed By: #### L [id number] ####Paper Products Supervisor: KIMBERLY VIRGEN ([phone])[facility])[address] [place] [address] Eosinophils/100 WBC (Bld) 1.5 % Normal 0.0-6.0 [facility] Comment on above: Performed By: #### L [id number] ####Paper Products Supervisor: KIMBERLY VIRGEN ([phone])[facility])[address] [place] [address] Erythrocyte distribution width (RBC) [Ratio] 16.5 % High 11.5-15.0 [facility] Comment on above: Performed By: #### L [id number] ####Paper Products Supervisor: KIMBERLY VIRGEN ([phone])[address] Hematocrit (Bld) [Volume fraction] 34.9 % Low 35.0-47.0 [facility] Comment on above: Performed By: #### L [id number] ####Paper Products Supervisor: KIMBERLY VIRGNE ([phone])[address] Hemoglobin (Bld) [Mass/Vol] 11.3 g/dL Low 11.7-16.0 [facility] Comment on above: Performed By: #### L [id number] ####Paper Products Supervisor: KIMBERLY VIRGEN ([phone])[facility])[address] [place] [address] IMMATURE GRANS % 0.4 % Normal 0.0-2.0 [facility] Comment on above: Performed By: #### L [id number] ####Paper Products Supervisor: KIMBERLY VIRGEN ([phone])[address] IMMATURE GRANS ABSOLUTE 0.0 10*3/uL Normal <0.1 [facility] Comment on above: Performed By: #### L [id number] ####Paper Products Supervisor: KIMBERLY VIRGEN ([phone])[facility])[address] [place] [address] Lymphocytes (Bld) [#/Vol] 1.4 10*3/uL Normal 1.0-4.3 [facility] Comment on above: Performed By: #### L [id number] ####Paper Products Supervisor: KIMBERLY VIRGEN ([phone])[facility])[address] [place] [address] Lymphocytes/100 WBC (Bld) 25.7 % Normal 15.0-45.0 [facility] Comment on above: Performed By: #### L [id number] ####Paper Products Supervisor: KIMBERLY VIRGEN ([phone])[facility])[address] [place] [address] MCH (RBC) [Entitic mass] 25.6 pg Low 26.0-34.0 [facility] Comment on above: Performed By: #### L [id number] ####Paper Products Supervisor: KIMBERLY VIRGEN ([phone])[facility])[address] [place] [address] MCHC 32.4 % Normal 30.5-36.0 [facility] Comment on above: Performed By: #### L [id number] ####Paper Products Supervisor: KIMBERLY VIRGEN ([phone])[facility])[address] [place] [address] MCV (RBC) [Entitic vol] 79.1 fL Normal 77.0-99.0 [facility] Comment on above: Performed By: #### L [id number] ####Paper Products Supervisor: KIMBERLY VIRGEN ([phone])[facility] ([facility])[address] [place] [address] Monocytes (Bld) [#/Vol] 0.5 10*3/uL Normal 0.0-0.9 [facility] Comment on above: Performed By: #### L [id number] ####Paper Products Supervisor: KIMBERLY VIRGEN ([phone])[facility])[address] [place] [address] Monocytes/100 WBC (Bld) 9.5 % Normal 5.0-13.0 [facility] Comment on above: Performed By: #### L [id number] ####Paper Products Supervisor: KIMBERLY VIRGEN ([phone])[facility] ([facility])[address] [place] [address] NEUTROPHILS ABSOLUTE 3.3 10*3/uL Normal 1.8-7.5 [facility] Comment on above: Performed By: #### L [id number] ####Paper Products Supervisor: KIMBERLY VIRGEN ([phone])[facility] ([facility])[address] [place] [address] Neutrophils/100 WBC (Bld) 62.3 % Normal 38.0-82.0 [facility] Comment on above: Performed By: #### L [id number] ####Paper Products Supervisor: KIMBERLY VIRGEN ([phone])[facility] ([facility])[address] [place] [address] NRBC 0.0 /100 WBCs Normal 0.0-2.0 [facility] Comment on above: Performed By: #### L [id number] ####Paper Products Supervisor: KIMBERLY VIRGEN ([phone])[facility] ([facility])[address] [place] [address] Platelet mean volume (Bld) [Entitic vol] 9.4 fL Normal 9.0-12.7 [facility] Comment on above: Performed By: #### L [id number] ####Paper Products Supervisor: KIMBERLY VIRGEN ([phone])[facility] ([facility])[address] [place] [address] Platelets (Bld) [#/Vol] 234 10*3/uL Normal 140-440 [facility] Comment on above: Performed By: #### L [id number] ####Paper Products Supervisor: KIMBERLY VIRGEN ([phone])[facility] ([facility])[address] [place] [address] RBC (Bld) [#/Vol] 4.41 10*6/uL Normal 3.80-5.20 [facility] Comment on above: Performed By: #### L [id number] ####Paper Products Supervisor: KIMBERLY VIRGEN ([phone])[facility] ([facility])[address] [place] [address] WBC (Bld) [#/Vol] 5.3 10*3/uL Normal 3.6-10.7 [facility] Comment on above: Performed By: #### L [id number] ####Paper Products Supervisor: KIMBERLY VIRGEN ([phone])[facility] ([facility])[address] [place] [address] COMPREHENSIVE METABOLIC PANE Gilberto 09-19-2024 Albumin [Mass/Vol] 3.5 g/dL Normal 3.5-5.0 [facility] Comment on above: Performed By: #### L AB17, [id number] ####Paper Products Supervisor: KIMBERLY VIRGEN ([phone])[facility] ([facility])[address] [place] [address] ALP [Catalytic activity/Vol] 52 U/L Normal 40-150 [facility] Comment on above: Performed By: #### L AB17, [id number] ####Paper Products Supervisor: KIMBERLY VIRGEN ([phone])[facility] ([facility])[address] [place] [address] ALT [Catalytic activity/Vol] 93 U/L High <30 [facility] Comment on above: Performed By: #### L AB17, [id number] ####Paper Products Supervisor: KIMBERLY VIRGEN ([phone])[facility] ([facility])[address] [place] [address] Anion gap [Moles/Vol] 12 mmol/L Normal 3-13 [facility] Comment on above: Performed By: #### L AB17, [id number] ####Paper Products Supervisor: KIMBERLY VIRGEN ([phone])[facility] ([facility])[address] [place] [address] AST [Catalytic activity/Vol] 79 U/L High <34 [facility] Comment on above: Performed By: #### L AB17, [id number] ####Paper Products Supervisor: KIMBERLY VIRGEN ([phone])[facility] ([facility])[address] [place] [address] Bilirubin [Mass/Vol] 0.5 mg/dL Normal <1.2 [facility] Comment on above: Performed By: #### L AB17, [id number] ####Paper Products Supervisor: KIMBERLY VIRGEN ([phone])[facility])[address] [place] [address] Calcium [Mass/Vol] 9.1 mg/dL Normal 8.4-10.2 [facility] Comment on above: Performed By: #### L AB17, [id number] ####Paper Products Supervisor: KIMBERLY VIRGEN ([phone])[facility] ([facility])[address] [place] [address] Chloride [Moles/Vol] 111 mmol/L High 98-107 [facility] Comment on above: Performed By: #### L AB17, [id number] ####Paper Products Supervisor: KIMBERLY VIRGEN ([phone])[facility] ([facility])[address] [place] [address] CO2 [Moles/Vol] 17 mmol/L Low 22-29 [facility] Comment on above: Performed By: #### L AB17, [id number] ####Paper Products Supervisor: KIMBERLY VIRGEN ([phone])[facility])[address] [place] [address] Creatinine [Mass/Vol] 0.67 mg/dL Normal 0.57-1.11 [facility] Comment on above: Performed By: #### L AB17, [id number] ####Paper Products Supervisor: KIMBERLY VIRGEN ([phone])[facility])[address] [place] [address] GLOMERULAR FILTRATION RATE ML/MIN/1.73 SQ M.PREDICTED >90.0 Normal >60.0 [facility] Comment on above: Result Comment: Calc ulation based on the Chronic Kidney Disease Epidemiology Collaboration (CKD-EPI) equation refit without adjustment for race Performed By: #### L AB17, [id number] ####Paper Products Supervisor: KIMBERLY [phone])[facility])[address] [place] [address] Glucose [Mass/Vol] 74 mg/dL Normal 74-100 [facility] Comment on above: Performed By: #### L AB17, [id number] ####Paper Products Supervisor: KIMBERLY VIRGEN ([phone])[facility])[address] [place] [address] Potassium [Moles/Vol] 3.2 mmol/L Low 3.5-5.1 [facility] Comment on above: Result Comment: [facility] potassium values may be up to 0.5 mmol/L lower than serum values. Performed By: #### L AB17, [id number] ####Paper Products Supervisor: KIMBERLY VIRGEN ([phone])[facility])[address] [place] [address] Protein [Mass/Vol] 6.4 g/dL Normal 6.4-8.3 [facility] Comment on above: Performed By: #### L AB17, [id number] ####Paper Products Supervisor: KIMBERLY VIRGEN ([phone])[facility] ([facility])[address] [place] [address] Sodium [Moles/Vol] 140 mmol/L Normal 136-145 [facility] Comment on above: Performed By: #### L AB17, [id number] ####Paper Products Supervisor: KIMBERLY VIRGEN ([phone])[facility])[address] [place] [address] Urea nitrogen [Mass/Vol] mg/dL Low 8-21 [facility] Comment on above: Performed By: #### L AB17, [id number] ####Paper Products Supervisor: KIMBERLY VIRGEN ([phone])[facility])[address] [place] [address] Comprehensive metabolic 1998 panelon 09-19-2024 Albumin [Mass/Vol] 3.5 g/dL 3.5 - 5.0 g/dL [facility] ALP [Catalytic activity/Vol] 52 U/L 40 - 150 U/L [facility] ALT [Catalytic activity/Vol] 93 U/L High NINF - 30 U/L [facility] Anion gap [Moles/Vol] 12 mmol/L 3 - 13 mmol/L [facility] AST [Catalytic activity/Vol] 79 U/L High NINF - 34 U/L [facility] Bilirubin [Mass/Vol] 0.5 mg/dL NINF - 1.2 mg/dL [facility] Calcium [Mass/Vol] 9.1 mg/dL 8.4 - 10. 2 mg/dL [facility] Chloride [Moles/Vol] 111 mmol/L High 98 - 10 7 mmol/L [facility] CO2 [Moles/Vol] 17 mmol/L Low 22 - 29 mmol/L [facility] Creatinine [Mass/Vol] 0.67 mg/dL 0.57 - 1.11 mg/dL [facility] GFR/1.73 sq M.predicted (S/P/Bld) [Vol rate/Area] - PINF [facility] Comment on above: Calculation based on the Chronic Kidney Disease Epidemiology Collaboration (CKD-EPI) equation refit without adjustment for race Glucose [Mass/Vol] 74 mg/dL 74 - 100 mg/dL [facility] Interpretation and review of laboratory results Abnormal [facility] Potassium [Moles/Vol] 3.2 mmol/L Low 3.5 - 5.1 mmol/L [facility] Comment on above: Plasma potassium yuli ues may be up to 0.5 mmol/L lower than serum values. Protein [Mass/Vol] 6.4 g/dL 6.4 - 8.3 g/dL [facility] Sodium [Moles/Vol] 140 mmol/L 136 - 145 mmol/L [facility] Urea nitrogen [Mass/Vol] mg/dL Low 8 - 21 mg/dL [facility] Consulton 09-19-2024 Consult Normal [facility] Consult Normal [facility] Laboratory - Chemistry and C hemistry - challengeon 09-19-2024 Magnesium [Mass/Vol] 1.6 mg/dL 1.6 - 2 .6 mg/dL [facility] MAGNESIUMon 09-19-2024 Magnesium [Mass/Vol] 1.6 mg/dL Normal 1.6-2.6 [facility] Comment on above: Result Comment: ORDSilvestre R COMMENTS:Higher values can be expected in females during menses. Performed By: #### L AB17, [id number] ####Paper Products Supervisor: KIMBERLY VIRGEN ([phone])[facility] ([facility])[address] [place] [address] Magnesium [Mass/Vol]on 09-19 Interpretation and review of laboratory results Normal [facility] Higher values can be expected in females during menses. [facility] Nursing Noteon 09-19-2024 Nursing Note Normal [facility] Progress Noteon 09-19-2024 Progress Note Normal [facility] 30on 09-18-2024 30 Normal [facility] CBC W Auto Differential pane l (Bld)Ordered By: Daniel Barreto on 09-18-2024 Basophils (Bld) [#/Vol] 0 10*3/uL 0.0 - 0.2 10*3/uL [facility] Basophils/100 WBC (Bld) 0.5 % 0.0 - 2.0 % [facility] Eosinophils (Bld) [#/Vol] 0.1 10*3/uL 0.0 - 0.5 10*3/uL [facility] Eosinophils/100 WBC (Bld) 1.3 % 0.0 - 6.0 % [facility] Erythrocyte distribution width (RBC) [Ratio] 16 % High 11.5 - 15.0 % [facility] Hematocrit (Bld) [Volume fraction] 32.7 % Low 35.0 - 47.0 % [facility] Hemoglobin (Bld) [Mass/Vol] 10.5 g/dL Low 11.7 - 16.0 g/dL [facility] Immature granulocytes (Bld) [#/Vol] 0 10*3/uL NINF - 0.1 10*3/uL [facility] Immature granulocytes/100 WBC (Bld) 0.4 % 0.0 - 2.0 % [facility] Interpretation and review of laboratory results Abnormal [facility] Lymphocytes (Bld) [#/Vol] 1.8 10*3/uL 1.0 - 4.3 10*3/uL [facility] Lymphocytes/100 WBC (Bld) 31.9 % 15.0 - 45.0 % [facility] MCH (RBC) [Entitic mass] 25.4 pg Low 26. 0 - 34.0 pg [facility] MCHC (RBC) [Mass/Vol] 32.1 % 30.5 - 36.0 % [facility] MCV (RBC) [Entitic vol] 79 fL 77.0 - 99.0 fL [facility] Monocytes (Bld) [#/Vol] 0.6 10*3/uL 0.0 - 0.9 10*3/uL [facility] Monocytes/100 WBC (Bld) 11 % 5.0 - 13.0 % [facility] Neutrophils (Bld) [#/Vol] 3.1 10*3/uL 1.8 - 7.5 10*3/uL [facility] Neutrophils/100 WBC (Bld) 54.9 % 38.0 - 82.0 % [facility] Nucleated RBC/100 WBC (Bld) [Ratio] 0 % [facility] Platelet mean volume (Bld) [Entitic vol] 9.6 fL 9.0 - 12.7 fL [facility] Platelets (Bld) [#/Vol] 230 10*3/uL 140 - 440 10*3/uL [facility] RBC (Bld) [#/Vol] 4.14 10*6/uL 3.80 - 5.20 10*6/uL [facility] WBC (Bld) [#/Vol] 5.6 10*3/uL 3.6 - 10.7 10*3/uL [facility] CBC WITH AUTO DIFFERENTIALon 09-18-2024 Basophils (Bld) [#/Vol] 0.0 10*3/uL Normal 0.0-0.2 [facility] Comment on above: Performed By: #### L [id number] ####Paper Products Supervisor: KIMBERLY [phone])[address] Basophils/100 WBC (Bld) 0.5 % Normal 0.0-2.0 [facility] Comment on above: Performed By: #### L [id number] ####Paper Products Supervisor: KIMBERLY [phone])[address] Eosinophils (Bld) [#/Vol] 0.1 10*3/uL Normal 0.0-0.5 [facility] Comment on above: Performed By: #### L [id number] ####Paper Products Supervisor: KIMBERLY [phone])[facility])[address] [place] [address] Eosinophils/100 WBC (Bld) 1.3 % Normal 0.0-6.0 [facility] Comment on above: Performed By: #### L [id number] ####Paper Products Supervisor: KIMBERLY VIRGEN ([phone])[facility])[address] [place] [address] Erythrocyte distribution width (RBC) [Ratio] 16.0 % High 11.5-15.0 [facility] Comment on above: Performed By: #### L [id number] ####Paper Products Supervisor: KIMBERLY VIRGEN ([phone])[facility])[address] [place] [address] Hematocrit (Bld) [Volume fraction] 32.7 % Low 35.0-47.0 [facility] Comment on above: Performed By: #### L [id number] ####Paper Products Supervisor: KIMBERLY VIRGEN ([phone])[facility])[address] [place] [address] Hemoglobin (Bld) [Mass/Vol] 10.5 g/dL Low 11.7-16.0 [facility] Comment on above: Performed By: #### L [id number] ####Paper Products Supervisor: KIMBERLY VIRGEN ([phone])[facility])[address] [place] [address] IMMATURE GRANS % 0.4 % Normal 0.0-2.0 [facility] Comment on above: Performed By: #### L [id number] ####Paper Products Supervisor: KIMBERLY VIRGEN ([phone])[facility])[address] [place] [address] IMMATURE GRANS ABSOLUTE 0.0 10*3/uL Normal <0.1 [facility] Comment on above: Performed By: #### L [id number] ####Paper Products Supervisor: KIMBERLY VIRGEN ([phone])[facility])[address] [place] [address] [place] Lymphocytes (Bld) [#/Vol] 1.8 10*3/uL Normal 1.0-4.3 [facility] Comment on above: Performed By: #### L [id number] ####Paper Products Supervisor: KIMBERLY VIRGEN ([phone])[facility])[address] [place] [address] Lymphocytes/100 WBC (Bld) 31.9 % Normal 15.0-45.0 [facility] Comment on above: Performed By: #### L [id number] ####Paper Products Supervisor: KIMBERLY VIRGEN ([phone])[facility])[address] [place] [address] MCH (RBC) [Entitic mass] 25.4 pg Low 26.0-34.0 [facility] Comment on above: Performed By: #### L [id number] ####Paper Products Supervisor: KIMBERLY VIRGEN ([phone])[facility])[address] [place] [address] MCHC 32.1 % Normal 30.5-36.0 [facility] Comment on above: Performed By: #### L [id number] ####Paper Products Supervisor: KIMBERLY VIRGEN ([phone])[facility])[address] [place] [address] MCV (RBC) [Entitic vol] 79.0 fL Normal 77.0-99.0 [facility] Comment on above: Performed By: #### L [id number] ####Paper Products Supervisor: KIMBERLY VIRGEN ([phone])[facility])[address] [place] [address] Monocytes (Bld) [#/Vol] 0.6 10*3/uL Normal 0.0-0.9 [facility] Comment on above: Performed By: #### L [id number] ####Paper [employer] Supervisor: KIMBERLY VIRGEN ([phone])[facility])[address] [place] [address] Monocytes/100 WBC (Bld) 11.0 % Normal 5.0-13.0 [facility] Comment on above: Performed By: #### L [id number] ####Paper [employer] Supervisor: KIMBERLY VIRGEN ([phone])[facility] ([facility])[address] [place] [address] NEUTROPHILS ABSOLUTE 3.1 10*3/uL Normal 1.8-7.5 [facility] Comment on above: Performed By: #### L [id number] ####Paper [employer] Supervisor: KIMBERLY VIRGEN ([phone])[facility] ([facility])[address] [place] [address] Neutrophils/100 WBC (Bld) 54.9 % Normal 38.0-82.0 [facility] Comment on above: Performed By: #### L [id number] ####[employer] Supervisor: KIMBERLY VIRGEN ([phone])[facility])[address] [place] [address] NRBC 0.0 /100 WBCs Normal 0.0-2.0 [facility] Comment on above: Performed By: #### L [id number] ####[employer] Supervisor: KIMBERLY VIRGEN ([phone])[facility] ([facility])[address] [place] [address] Platelet mean volume (Bld) [Entitic vol] 9.6 fL Normal 9.0-12.7 [facility] Comment on above: Performed By: #### L [id number] ####Paper Products Supervisor: KIMBERLY VIRGEN ([phone])[facility])[address] [place] [address] [place] Platelets (Bld) [#/Vol] 230 10*3/uL Normal 140-440 [facility] Comment on above: Performed By: #### L [id number] ####[employer] Supervisor: KIMBERLY VIRGEN ([phone])[facility])[address] [place] [address] RBC (Bld) [#/Vol] 4.14 10*6/uL Normal 3.80-5.20 [facility] Comment on above: Performed By: #### L [id number] ####Paper Products Supervisor: KIMBERLY VIRGEN ([phone])[facility] ([facility])[address] [place] [address] WBC (Bld) [#/Vol] 5.6 10*3/uL Normal 3.6-10.7 [facility] Comment on above: Performed By: #### L [id number] ####Paper Products Supervisor: KIMBERLY VIRGEN ([phone])[facility] ([facility])[address] [place] [address] COMPREHENSIVE METABOLIC PANE Gilberto 09-18-2024 Albumin [Mass/Vol] 3.2 g/dL Low 3.5-5.0 [facility] Comment on above: Performed By: #### L AB103, LAB17 ####Paper Products Supervisor: KIMBERLY VIRGEN ([phone])[facility] ([facility])[address] [place] [address] ALP [Catalytic activity/Vol] 45 U/L Normal 40-150 [facility] Comment on above: Performed By: #### L AB103, LAB17 ####Paper Products Supervisor: KIMBERLY VIRGEN ([phone])[facility] ([facility])[address] [place] [address] ALT [Catalytic activity/Vol] 30 U/L High <30 [facility] Comment on above: Performed By: #### L AB103, LAB17 ####Paper Products Supervisor: KIMBERLY VIRGEN ([phone])[facility] ([facility])[address] [place] [address] Anion gap [Moles/Vol] 10 mmol/L Normal 3-13 [facility] Comment on above: Performed By: #### L AB103, LAB17 ####Paper Products Supervisor: KIMBERLY VIRGEN ([phone])[facility] ([facility])[address] [place] [address] AST [Catalytic activity/Vol] 38 U/L High <34 [facility] Comment on above: Performed By: #### L AB103, LAB17 ####Paper Products Supervisor: KIMBERLY VIRGEN ([phone])[facility] ([facility])[address] [place] [address] [place] Bilirubin [Mass/Vol] 0.4 mg/dL Normal <1.2 [facility] Comment on above: Performed By: #### Korey HIDALGO, LAB17 ####Paper Products Supervisor: KIMBERLY VIRGEN ([phone])[facility] ([facility])[address] [place] [address] Calcium [Mass/Vol] 8.6 mg/dL Normal 8.4-10.2 [facility] Comment on above: Performed By: #### Korey HIDALGO, LAB17 ####Paper Products Supervisor: KIMBERLY VIRGEN ([phone])[facility])[address] [place] [address] [place] Chloride [Moles/Vol] 107 mmol/L Normal 98-107 [facility] Comment on above: Performed By: #### Korey HIDALGO, LAB17 ####Paper Products Supervisor: KIMBERLY VIRGEN ([phone])[facility] ([facility])[address] [place] [address] [place] CO2 [Moles/Vol] 19 mmol/L Low 22-29 [facility] Comment on above: Performed By: #### Korey HIDALGO, LAB17 ####Paper Products Supervisor: KIMBERLY VIRGEN ([phone])[facility] ([facility])[address] [place] [address] Creatinine [Mass/Vol] 0.68 mg/dL Normal 0.57-1.11 [facility] Comment on above: Performed By: #### Korey HIDALGO, LAB17 ####Paper Products Supervisor: KIMBERLY VIRGEN ([phone])[facility])[address] [place] [address] GLOMERULAR FILTRATION RATE ML/MIN/1.73 SQ M.PREDICTED >90.0 Normal >60.0 [facility] Comment on above: Result Comment: Calc ulation based on the Chronic Kidney Disease Epidemiology Collaboration (CKD-EPI) equation refit without adjustment for race Performed By: #### L AB103, LAB17 ####Paper Products Supervisor: KIMBERLY VIRGEN ([phone])[facility] ([facility])[address] [place] [address] [place] Glucose [Mass/Vol] 68 mg/dL Low 74-100 [facility] Comment on above: Performed By: #### L AB103, LAB17 ####Paper Products Supervisor: KIMBERLY VIRGEN ([phone])[facility])[address] [place] [address] Potassium [Moles/Vol] 2.9 mmol/L Low 3.5-5.1 [facility] Comment on above: Result Comment: [facility] potassium values may be up to 0.5 mmol/L lower than serum values. Performed By: #### L AB103, LAB17 ####Paper Products Supervisor: KIMBERLY VIRGEN ([phone])[facility] ([facility])[address] [place] [address] Protein [Mass/Vol] 5.8 g/dL Low 6.4-8.3 [facility] Comment on above: Performed By: #### L 103, LAB17 ####Paper Products Supervisor: KIMBERLY VIRGEN ([phone])[facility] ([facility])[address] [place] [address] Sodium [Moles/Vol] 136 mmol/L Normal 136-145 [facility] Comment on above: Performed By: #### L 103, LAB17 ####Paper Products Supervisor: KIMBERLY VIRGEN ([phone])[facility])[address] [place] [address] Urea nitrogen [Mass/Vol] mg/dL Low 8-21 [facility] Comment on above: Performed By: #### L AB103, LAB17 ####Paper Products Supervisor: KIMBERLY VIRGEN ([phone])[facility])[address] [place] [address] Comprehensive metabolic 1998 panelon 09-18-2024 Albumin [Mass/Vol] 3.2 g/dL Low 3.5 - 5.0 g/dL [facility] ALP [Catalytic activity/Vol] 45 U/L 40 - 150 U/L [facility] ALT [Catalytic activity/Vol] 30 U/L High NINF - 30 U/L [facility] Anion gap [Moles/Vol] 10 mmol/L 3 - 13 mmol/L [facility] AST [Catalytic activity/Vol] 38 U/L High NINF - 34 U/L [facility] Bilirubin [Mass/Vol] 0.4 mg/dL NINF - 1.2 mg/dL [facility] Calcium [Mass/Vol] 8.6 mg/dL 8.4 - 10. 2 mg/dL [facility] Chloride [Moles/Vol] 107 mmol/L 98 - 10 7 mmol/L [facility] CO2 [Moles/Vol] 19 mmol/L Low 22 - 29 mmol/L [facility] Creatinine [Mass/Vol] 0.68 mg/dL 0.57 - 1.11 mg/dL [facility] GFR/1.73 sq M.predicted (S/P/Bld) [Vol rate/Area] - PINF [facility] Comment on above: Calculation based on the Chronic Kidney Disease Epidemiology Collaboration (CKD-EPI) equation refit without adjustment for race Glucose [Mass/Vol] 68 mg/dL Low 74 - 100 mg/dL [facility] Interpretation and review of laboratory results Abnormal [facility] Potassium [Moles/Vol] 2.9 mmol/L Low 3.5 - 5.1 mmol/L [facility] Comment on above: Plasma potassium yuli ues may be up to 0.5 mmol/L lower than serum values. Protein [Mass/Vol] 5.8 g/dL Low 6.4 - 8.3 g/dL [facility] Sodium [Moles/Vol] 136 mmol/L 136 - 145 mmol/L [facility] Urea nitrogen [Mass/Vol] mg/dL Low 8 - 21 mg/dL [facility] ECG 12-LEADon 09-18-2024 ECG 12-LEAD IMPRESSION: Sinus tachycardia Borderline Q waves in inferior leads Electronically Signed On 09-18-2024 03:00:11 EST by Gela Ruiz Normal [facility] Laboratory - Chemistry and C hemistry - challengeon 09-18-2024 Magnesium [Mass/Vol] 1.6 mg/dL 1.6 - 2 .6 mg/dL [facility] MAGNESIUMon 09-18-2024 Magnesium [Mass/Vol] 1.6 mg/dL Normal 1.6-2.6 [facility] Comment on above: Result Comment: ORDE R COMMENTS:Higher values can be expected in females during menses. Performed By: #### L AB103, LAB17 ####Paper Products Supervisor: KIMBERLY VIRGEN ([phone])[facility] ([facility])[address] [place] [address] [place] Magnesium [Mass/Vol]on 09-18 Interpretation and review of laboratory results Normal [facility] Qubit Higher values can be expected in females during menses. [facility] [employer]eta No Panel InformationOrdered By: Gela Ruiz on 09-18-2024 P [place] 61 degrees [employer] Work Phone: SC Interval 161 ms [employer] Work Phone: [phone] QRS [place] 75 degrees [employer] Phone: QRSD Interval 91 ms [employer] Phone: [phone] QT Interval 319 ms [employer] Phone: QTC Interval 436 ms [employer] Phone: [phone] T Wave [place] 2 degrees [employer] Phone: [phone] [employer] Phone: [phone] No Panel Informationon 09-18 Sinus tachycardia Borderline Q waves in inferior leads Electronically Signed On 09-18-2024 03:00:11 EST by Gela Isaacs MD - 09/18/2024 IMPRESSION: Sinus tachycardia Borderline Q waves in inferior leads Electronically Signed On 09-18-2024 03:00:11 EST by Gela Ruiz [facility] Nursing Noteon 09-18-2024 Nursing Note Normal [facility] Qubit [facility] Progress Noteon 09-18-2024 Progress Note Normal [facility] Vital signsOrdered By: Gela Ruiz on 09-18-2024 Heart rate 112 /min bpm [employer] Work Phone: CBC W Auto Differential pane l (Bld)Ordered By: Tiffany Dumont on 09-17-2024 Basophils (Bld) [#/Vol] 0 10*3/uL 0.0 - 0.2 10*3/uL [employer] Basophils/100 WBC (Bld) 0.5 % 0.0 - 2.0 % [facility] Eosinophils (Bld) [#/Vol] 0.1 10*3/uL 0.0 - 0.5 10*3/uL [facility] Eosinophils/100 WBC (Bld) 0.9 % 0.0 - 6.0 % [facility] Erythrocyte distribution width (RBC) [Ratio] 15.9 % High 11.5 - 15.0 % [facility] Hematocrit (Bld) [Volume fraction] 38.5 % 35.0 - 47.0 % [facility] Hemoglobin (Bld) [Mass/Vol] 12.5 g/dL 11.7 - 16.0 g/dL [facility] Immature granulocytes (Bld) [#/Vol] 0 10*3/uL NINF - 0.1 10*3/uL [facility] Immature granulocytes/100 WBC (Bld) 0.3 % 0.0 - 2.0 % [facility] Interpretation and review of laboratory results Abnormal [facility] Lymphocytes (Bld) [#/Vol] 0.9 10*3/uL Low 1.0 - 4.3 10*3/uL [facility] Lymphocytes/100 WBC (Bld) 16 % 15.0 - 45.0 % [facility] MCH (RBC) [Entitic mass] 25.8 pg Low 26. 0 - 34.0 pg [facility] MCHC (RBC) [Mass/Vol] 32.5 % 30.5 - 36.0 % [facility] MCV (RBC) [Entitic vol] 79.4 fL 77.0 - 99.0 fL [facility] Monocytes (Bld) [#/Vol] 0.5 10*3/uL 0.0 - 0.9 10*3/uL [facility] Monocytes/100 WBC (Bld) 7.8 % 5.0 - 13.0 % [facility] Neutrophils (Bld) [#/Vol] 4.3 10*3/uL 1.8 - 7.5 10*3/uL [facility] Neutrophils/100 WBC (Bld) 74.5 % 38.0 - 82.0 % [facility] Nucleated RBC/100 WBC (Bld) [Ratio] 0 % [facility] Platelet mean volume (Bld) [Entitic vol] 9.4 fL 9.0 - 12.7 fL [facility] Platelets (Bld) [#/Vol] 276 10*3/uL 140 - 440 10*3/uL [facility] RBC (Bld) [#/Vol] 4.85 10*6/uL 3.80 - 5.20 10*6/uL [facility] WBC (Bld) [#/Vol] 5.8 10*3/uL 3.6 - 10.7 10*3/uL [facility] CBC WITH AUTO DIFFERENTIALon 09-17-2024 Basophils (Bld) [#/Vol] 0.0 10*3/uL Normal 0.0-0.2 [facility] Comment on above: Performed By: #### L [id number] ####Paper Products Supervisor: KIMBERLY VIRGEN ([phone])[facility])[address] [place] [address] Basophils/100 WBC (Bld) 0.5 % Normal 0.0-2.0 [facility] Comment on above: Performed By: #### L [id number] ####Paper Products Supervisor: KIMBERLY VIRGEN ([phone])[facility] ([facility])[address] [place] [address] Eosinophils (Bld) [#/Vol] 0.1 10*3/uL Normal 0.0-0.5 [facility] Comment on above: Performed By: #### L [id number] ####Paper Products Supervisor: KIMBERLY VIRGEN ([phone])[facility])[address] [place] [address] Eosinophils/100 WBC (Bld) 0.9 % Normal 0.0-6.0 [facility] Comment on above: Performed By: #### L [id number] ####Paper Products Supervisor: KIMBERLY VIRGEN ([phone])[facility] ([facility])[address] [place] [address] Erythrocyte distribution width (RBC) [Ratio] 15.9 % High 11.5-15.0 [facility] Comment on above: Performed By: #### L [id number] ####Paper [employer] Supervisor: KIMBERLY VIRGEN ([phone])[facility])[address] [place] [address] Hematocrit (Bld) [Volume fraction] 38.5 % Normal 35.0-47.0 [facility] Comment on above: Performed By: #### L [id number] ####[employer] Supervisor: KIMBERLY VIRGEN ([phone])[facility])[address] [place] [address] Hemoglobin (Bld) [Mass/Vol] 12.5 g/dL Normal 11.7-16.0 [facility] Comment on above: Performed By: #### L [id number] ####[employer] Supervisor: KIMBERLY VIRGEN ([phone])[facility])[address] [place] [address] IMMATURE GRANS % 0.3 % Normal 0.0-2.0 [facility] Comment on above: Performed By: #### L [id number] ####[employer] Supervisor: KIMBERLY VIRGEN ([phone])[facility])[address] [place] [address] IMMATURE GRANS ABSOLUTE 0.0 10*3/uL Normal <0.1 [facility] Comment on above: Performed By: #### L [id number] ####[employer] Supervisor: KIMBERLY VIRGEN ([phone])[facility])[address] [place] [address] Lymphocytes (Bld) [#/Vol] 0.9 10*3/uL Low 1.0-4.3 [facility] Comment on above: Performed By: #### L [id number] ####[employer] Supervisor: KIMBERLY VIRGEN ([phone])[facility])[address] [place] [address] Lymphocytes/100 WBC (Bld) 16.0 % Normal 15.0-45.0 [facility] Comment on above: Performed By: #### L [id number] ####[employer] Supervisor: KIMBERLY VIRGEN ([phone])[facility])[address] [place] [address] MCH (RBC) [Entitic mass] 25.8 pg Low 26.0-34.0 [facility] Comment on above: Performed By: #### L [id number] ####[employer] Supervisor: KIMBERLY VIRGEN ([phone])[facility])[address] [place] [address] MCHC 32.5 % Normal 30.5-36.0 [facility] Comment on above: Performed By: #### L [id number] ####[employer] Supervisor: KIMBERLY VIRGEN ([phone])[facility])[address] [place] [address] MCV (RBC) [Entitic vol] 79.4 fL Normal 77.0-99.0 [facility] Comment on above: Performed By: #### L [id number] ####Paper [employer] Supervisor: KIMBERLY VIRGEN ([phone])[facility])[address] [place] [address] Monocytes (Bld) [#/Vol] 0.5 10*3/uL Normal 0.0-0.9 [facility] Comment on above: Performed By: #### L [id number] ####[employer] Supervisor: KIMBERLY VIRGEN ([phone])[facility])[address] [place] [address] Monocytes/100 WBC (Bld) 7.8 % Normal 5.0-13.0 [facility] Comment on above: Performed By: #### L [id number] ####[employer] Supervisor: KIMBERLY VIRGEN ([phone])[facility])[address] [place] [address] NEUTROPHILS ABSOLUTE 4.3 10*3/uL Normal 1.8-7.5 [facility] Comment on above: Performed By: #### L [id number] ####[employer] Supervisor: KIMBERLY VIRGEN ([phone])[facility])[address] [place] [address] Neutrophils/100 WBC (Bld) 74.5 % Normal 38.0-82.0 [facility] Comment on above: Performed By: #### L [id number] ####[employer] Supervisor: KIMBERLY VIRGEN ([phone])[facility])[address] [place] [address] NRBC 0.0 /100 WBCs Normal 0.0-2.0 [facility] Comment on above: Performed By: #### L [id number] ####[employer] Supervisor: KIMBERLY VIRGEN ([phone])[facility])[address] [place] [address] Platelet mean volume (Bld) [Entitic vol] 9.4 fL Normal 9.0-12.7 [facility] Comment on above: Performed By: #### L [id number] ####[employer] Supervisor: KIMBERLY VIRGEN ([phone])[facility])[address] [place] [address] Platelets (Bld) [#/Vol] 276 10*3/uL Normal 140-440 [facility] Comment on above: Performed By: #### L [id number] ####[employer] Supervisor: KIMBERLY VIRGEN ([phone])[facility])[address] [place] [address] RBC (Bld) [#/Vol] 4.85 10*6/uL Normal 3.80-5.20 [facility] Comment on above: Performed By: #### L [id number] ####[employer] Supervisor: KIMBERLY VIRGEN ([phone])[facility])[address] [place] [address] WBC (Bld) [#/Vol] 5.8 10*3/uL Normal 3.6-10.7 [facility] Comment on above: Performed By: #### L [id number] ####[employer] Supervisor: KIMBERLY VIRGEN ([phone])[facility])[address] [place] [address] COMPLETE URINALYSISon 2024 BACTERIA (#/HPF) IN URINE Few Abnormal Negative [facility] Comment on above: Performed By: #### L [id number] ####[employer] Supervisor: KIMBERLY VIRGEN ([phone])[facility])[address] [place] [address] BILIRUBIN, TOTAL PRESENCE IN URINE Negative Normal Negative [facility] Comment on above: Performed By: #### L [id number] ####[employer] Supervisor: KIMBERLY VIRGEN ([phone])[facility])[address] [place] [address] Clarity (U) Clear Normal Clear [facility] Comment on above: Performed By: #### L [id number] ####Paper [employer] Supervisor: KIMBERLY VIRGEN ([phone])[facility] ([facility])[address] [place] [address] Color (U) Light Yellow Normal Lt. Yellow [facility] Comment on above: Performed By: #### L [id number] ####[employer] Supervisor: KIMBERLY VIRGEN ([phone])[facility])[address] [place] [address] GLUCOSE (MG/DL) IN URINE Normal Normal Nor mal (<70) [facility] Comment on above: Performed By: #### L [id number] ####[employer] Supervisor: KIMBERLY VIRGEN ([phone])[facility] ([facility])[address] [place] [address] HEMOGLOBIN PRESENCE IN URINE Negative Normal Negative [facility] Comment on above: Performed By: #### L [id number] ####[employer] Supervisor: KIMBERLY VIRGEN ([phone])[facility] ([facility])[address] [place] [address] HYALINE CASTS (#/LPF) IN URINE SEDIMENT BY MICROSCOPY Negative Normal Negative [facility] Comment on above: Performed By: #### L [id number] ####[employer] Supervisor: KIMBERLY VIRGEN ([phone])[facility] ([facility])[address] [place] [address] Ketones Ql (U) >150 Abnormal Negative [facility] Comment on above: Performed By: #### L [id number] ####[employer] Supervisor: KIMBERLY VIRGEN ([phone])[facility] ([facility])[address] [place] [address] LEUKOCYTE ESTERASE PRESENCE IN URINE BY TEST STRIP Negative Normal Negative [facility] Comment on above: Performed By: #### L [id number] ####[employer] Supervisor: KIMBERLY VIRGEN ([phone])[facility] ([facility])[address] [place] [address] [place] MUCUS (#/LPF) IN URINE SEDIMENT Few Normal Negative [facility] Comment on above: Performed By: #### L [id number] ####[employer] Supervisor: KIMBERLY VIRGEN ([phone])[facility] ([facility])[address] [place] [address] NITRITE PRESENCE IN URINE Negative Normal Negative [facility] Comment on above: Performed By: #### L [id number] ####[employer] Supervisor: KIMBERLY VIRGEN ([phone])[facility] ([facility])[address] [place] [address] pH (U) 5.5 [pH] Normal 5.0-8.0 [facility] Comment on above: Performed By: #### L [id number] ####[employer] Supervisor: KIMBERLY VIRGEN ([phone])[facility] ([facility])[address] [place] [address] Protein (U) [Mass/Vol] 30 mg/dL Abnormal Negative [facility] Comment on above: Performed By: #### L [id number] ####[employer] Supervisor: KIMBERLY VIRGEN ([phone])[facility] ([facility])[address] [place] [address] RBC (#/HPF) IN URINE SEDIMENT 0-2 Normal 0-2 [facility] Comment on above: Performed By: #### L [id number] ####[employer] Supervisor: KIMBERLY VIRGEN ([phone])[facility] ([facility])[address] [place] [address] Specific gravity (U) [Rel density] 1.016 Normal 1.005-1.03 0 [facility] Comment on above: Performed By: #### L [id number] ####[employer] Supervisor: KIMBERLY VIRGEN ([phone])[facility] ([facility])[address] [place] [address] SQUAMOUS EPITHELIAL CELLS (#/HPF) IN URINE SEDIMENT 3-5 Normal 3-5 [facility] Comment on above: Performed By: #### L [id number] ####[employer] Supervisor: KIMBERLY VIRGEN ([phone])[facility])[address] [place] [address] UROBILINOGEN (MG/DL) IN URINE Normal Normal Normal (0-1) [facility] Comment on above: Performed By: #### L [id number] ####[employer] Supervisor: KIMBERLY VIRGEN ([phone])[facility])[address] [place] [address] WBC (LEUKOCYTE) (#/HPF) IN URINE SEDIMENT 3-5 Normal 0-5 [facility] Comment on above: Performed By: #### L [id number] ####[employer] Supervisor: KIMBERLY VIRGEN ([phone])[facility])[address] [place] [address] COMPREHENSIVE METABOLIC PANE Gilberto 09-17-2024 Albumin [Mass/Vol] 4.3 g/dL Normal 3.5-5.0 [facility] Comment on above: Performed By: #### L AB99, LAB17, [id number] ####Paper Products Supervisor: KIMBERLY VIRGEN ([phone])[facility])[address] [place] [address] ALP [Catalytic activity/Vol] 55 U/L Normal 40-150 [facility] Comment on above: Performed By: #### L AB99, LAB17, [id number] ####Paper Products Supervisor: KIMBERLY VIRGEN ([phone])[facility])[address] [place] [address] ALT [Catalytic activity/Vol] 30 U/L High <30 [facility] Comment on above: Performed By: #### L AB99, LAB17, [id number] ####Paper Products Supervisor: KIMBERLY VIRGEN ([phone])[facility])[address] [place] [address] Anion gap [Moles/Vol] 15 mmol/L High 3-13 [facility] Comment on above: Performed By: #### L AB99, LAB17, [id number] ####Paper Products Supervisor: KIMBERLY VIRGEN ([phone])[facility] ([facility])[address] [place] [address] AST [Catalytic activity/Vol] 21 U/L Normal <34 [facility] Comment on above: Performed By: #### L AB99, LAB17, [id number] ####Paper Products Supervisor: KIMBERLY VIRGEN ([phone])[facility])[address] [place] [address] Bilirubin [Mass/Vol] 0.4 mg/dL Normal <1.2 [facility] Comment on above: Performed By: #### L AB99, LAB17, [id number] ####Paper Products Supervisor: KIMBERLY VIRGEN ([phone])[facility])[address] [place] [address] Calcium [Mass/Vol] 9.6 mg/dL Normal 8.4-10.2 [facility] Comment on above: Performed By: #### L AB99, LAB17, [id number] ####Paper Products Supervisor: KIMBERLY VIRGEN ([phone])[facility] ([facility])[address] [place] [address] Chloride [Moles/Vol] 100 mmol/L Normal 98-107 [facility] Comment on above: Performed By: #### L AB99, LAB17, [id number] ####Paper Products Supervisor: KIMBERLY VIRGEN ([phone])[facility])[address] [place] [address] [place] CO2 [Moles/Vol] 19 mmol/L Low 22-29 [facility] Comment on above: Performed By: #### L AB99, LAB17, [id number] ####Paper Products Supervisor: KIMBERLY VIRGEN ([phone])[facility])[address] [place] [address] Creatinine [Mass/Vol] 0.79 mg/dL Normal 0.57-1.11 [facility] Comment on above: Performed By: #### L AB99, LAB17, [id number] ####Paper Products Supervisor: KIMBERLY VIRGEN ([phone])[facility])[address] [place] [address] GLOMERULAR FILTRATION RATE ML/MIN/1.73 SQ M.PREDICTED >90.0 Normal >60.0 [facility] Comment on above: Result Comment: Calc ulation based on the Chronic Kidney Disease Epidemiology Collaboration (CKD-EPI) equation refit without adjustment for race Performed By: #### L AB99, LAB17, [id number] ####Paper Products Supervisor: KIMBERLY VIRGEN ([phone])[facility] ([facility])[address] [place] [address] Glucose [Mass/Vol] 81 mg/dL Normal 74-100 [facility] Comment on above: Performed By: #### Korey AB99, LAB17, [id number] ####Paper Products Supervisor: KIMBERLY VIRGEN ([phone])[facility])[address] [place] [address] [place] Potassium [Moles/Vol] 2.7 mmol/L Low 3.5-5.1 [facility] Comment on above: Result Comment: [facility] potassium values may be up to 0.5 mmol/L lower than serum values. Performed By: #### L AB99, LAB17, [id number] ####Paper Products Supervisor: KIMBERLY VIRGEN ([phone])[facility])[address] [place] [address] [place] Protein [Mass/Vol] 7.6 g/dL Normal 6.4-8.3 [facility] Comment on above: Performed By: #### L AB99, LAB17, [id number] ####Paper Products Supervisor: KIMBERLY VIRGEN ([phone])[facility])[address] [place] [address] [place] Sodium [Moles/Vol] 134 mmol/L Low 136-145 [facility] Comment on above: Performed By: #### L AB99, LAB17, [id number] ####Paper Products Supervisor: KIMBERLY VIRGEN ([phone])[facility])[address] [place] [address] [place] Urea nitrogen [Mass/Vol] mg/dL Low 8-21 [facility] Comment on above: Performed By: #### L AB99, LAB17, [id number] ####Paper Products Supervisor: KIMBERLY VIRGEN ([phone])[facility] ([id number] Comprehensive metabolic 1998 panelon 09-17-2024 Albumin [Mass/Vol] 4.3 g/dL 3.5 - 5.0 g/dL [facility] ALP [Catalytic activity/Vol] 55 U/L 40 - 150 U/L [facility] ALT [Catalytic activity/Vol] 30 U/L High NINF - 30 U/L [facility] Anion gap [Moles/Vol] 15 mmol/L High 3 - 13 mmol/L [facility] AST [Catalytic activity/Vol] 21 U/L NINF - 34 U/L [facility] Bilirubin [Mass/Vol] 0.4 mg/dL NINF - 1.2 mg/dL [facility] Calcium [Mass/Vol] 9.6 mg/dL 8.4 - 10. 2 mg/dL [facility] Chloride [Moles/Vol] 100 mmol/L 98 - 10 7 mmol/L [facility] CO2 [Moles/Vol] 19 mmol/L Low 22 - 29 mmol/L [facility] Creatinine [Mass/Vol] 0.79 mg/dL 0.57 - 1.11 mg/dL [facility] GFR/1.73 sq M.predicted (S/P/Bld) [Vol rate/Area] - PINF [facility] Comment on above: Calculation based on the Chronic Kidney Disease Epidemiology Collaboration (CKD-EPI) equation refit without adjustment for race Glucose [Mass/Vol] 81 mg/dL 74 - 100 mg/dL [facility] Interpretation and review of laboratory results Abnormal [facility] Potassium [Moles/Vol] 2.7 mmol/L Low 3.5 - 5.1 mmol/L [facility] Comment on above: Plasma potassium yuli ues may be up to 0.5 mmol/L lower than serum values. Protein [Mass/Vol] 7.6 g/dL 6.4 - 8.3 g/dL [facility] Sodium [Moles/Vol] 134 mmol/L Low 136 - 145 mmol/L [facility] Urea nitrogen [Mass/Vol] mg/dL Low 8 - 21 mg/dL [facility] ED Nursing Noteon 09-17-2024 ED Nursing Note RN/Debbi unable to obtain IV access/blood, and CJ/RN and Carolina/RN attempted as well; Bill/Trauma float RN to attempt with ultrasound Normal [facility] ED Nursing Note This RN attempted IV insertion in right AC with no success. Normal [facility] ED Provider Noteon ED Provider Note Normal [facility] Emergency Department Summary on 09-17-2024 Emergency Department Summary [facility] Medical Records Department [address] [place] [address] Emergency Department Summary 09/17/24 MR#: [id number] Acct: [id number] Name: ADDIS TORRES Rep #: [id number] : 2000 24 From: Jamey Henriquez MD PCP: Care Physician,No Primary Status:DEP ER Location: ED HPI History of Present Illness Chief Complaint: Nausea/Vomiting Detail of Chief Complaint: Nausea and vomiting started at 0300 and left lower quadrant pain Informant: patient Onset/Context/Timing Onset: Today (Today's episode started 0300.) Context: Sudden Onset Timing: Continuous Quality: Pain with nausea and vomiting Location: Left lower quadrant Current Severity: Mild Maximum Severity: Moderate Worsened by: Nothing specific Relieved by: Nothing Associated Symptoms Associated Symptoms: No other symptoms Narrative Narrative: Patient is a 24-year-old female. She has a history of cannabis use. She states she has not had any product containing cannabinoids in 3 months. She presents with nausea and vomiting started 0 300 and left lower quadrant pain. Patient has had multiple visits for this. She had a multidisciplinary team when she was admitted to the [facility]. There belief is that there is a psychiatric component. She denies fever, chills night sweats. She denies history of diabetes. She reports history of gastroparesis. The cause of her gastroparesis is unknown. She does endorse constipation. Patient denies headache, visual, ocular auditory symptoms. Patient denies cardiac or respiratory symptoms. Prior similar symptoms: Yes Recent Illness/Hospitalization: Yes (Patient was seen September 14, 2024. She had a CAT scan at that time. CAT id) [facility] Medical History Intractable nausea and vomiting Gastroparesis Cyclic vomiting syndrome History of alcohol abuse Ureteral stricture, left Retained ureteral stent Hypertension Depression Ureterolithiasis Ureter injury Non-smoker Endometrial cancer PCOS (polycystic ovarian syndrome) Home Medications ???Medication ???Instructions ???Recorded ???Last Taken ???Type amitriptyline 10 mg tablet 10 mg PO QHS #30 TABLETS 04/28/24 Unknown Rx pantoprazole 40 mg tablet,delayed 40 mg PO BID #60 TABLETS 04/28/24 Unknown Rx release gabapentin 100 mg capsule 200 mg (2 x 100 mg) PO TID #180 05/24/24 Unknown Rx caps sucralfate 100 mg/mL oral 10 ml PO QAC #414 mL 07/21/24 Unknown Rx suspension ondansetron 4 mg disintegrating 4 mg PO Q6H PRN nausea and 07/22/24 Unknown Rx tablet vomiting #90 tabs metoclopramide HCl 10 mg tablet 10 mg PO Q6H PRN nausea and 09/14/24 Unknown Rx vomiting #20 tabs Allergy/AdvReac Type Severity Reaction Status Date / Time ceftriaxone (From Rocephin) Allergy Hives Verified 09/17/24 06:25 promethazine (From Phenergan) Allergy Vomiting Verified 09/17/24 06:25 Ringer's solution,lactated Allergy Hives Verified 09/17/24 06:25 Family History Father No problems noted. Mother Anxiety and depression GERD (gastroesophageal reflux disease) Surgical History History of renal stent History of hysterectomy for cancer Social History household members: family Smoking Status: Never smoker alcohol intake: former substance use type: marijuana and other details: No marijuana use in the last month ROS ROS ED Constitutional Constitutional ED: Denies chills, fever(s), subjective or sweats Eyes Eyes: Denies blurry vision or change in vision ENT ENT ED: Denies ear pain, rhinorrhea or sore throat Cardiovascular Cardiovascular: Denies chest pain or palpitations Respiratory/Chest Respiratory/Chest: Denies cough, dyspnea or dyspnea on exertion Gastrointestinal Gastrointestinal: Reports abdominal pain, constipation, nausea, vomiting and other Details: She denies hematemesis, melena or hematochezia. ; Denies diarrhea or melena Genitourinary Genitourinary ED: Denies dysuria, hematuria or urinary frequency Musculoskeletal Musculoskeletal: Denies arthralgias, back pain or myalgias Integumentary Denies rash Neurologic Neurologic: Denies headache(s) Psychiatric Psychiatric: Reports anxiety and depression; Denies suicidal ideation or suicidal thoughts Endocrine Endocrinology: Denies cold intolerance or heat intolerance Hematologic/Lymphatic Hematologic/Lymphatic: Reports systems reviewed and no addt'l complaints, except as documented EXAM Physical Exam Const Vital Signs: 09/17/24 06:00 09/17/24 07:58 09/17/24 08:50 Temperature 97.8 F 97.9 F Temperature Source Oral Pulse Rate 111 H 91 91 Respiratory Rate 18 18 18 (more content not included)... Normal [facility] HCG QUALITATIVE URINEon 09-07 Beta HCG ( test) Ql (U) Negative Normal Negative [facility] Comment on above: Result Comment: Isak medina note: Very dilute urine specimens, as indicated by a low specific gravity, may not contain lead customer service representative levels of hCG. If is still suspected, a first morning urine specimen should be collected 48 hours later and tested.ORDER COMMENTS: is the most common reason for HCG in urine, although choriocarcinoma, hydatidiform mole, and certain nontrophoblastic malignancies also result in detectable urinary HCG levels. Sensitivity = 20mIU/mL. Performed By: #### L [id number] ####Paper Products Supervisor: KIMBERLY VIRGEN ([phone])[facility] ([address] LACTIC ACID WITH REFLEXon Lactate [Moles/Vol] 1.0 mmol/L Normal 0.5-2.2 [facility] Comment on above: Performed By: #### L [id number] ####Paper Products Supervisor: KIMBERLY VIRGEN ([phone])[facility] ([facility])[address] [place] [address] LIPASEon 09-17-2024 Lipase [Catalytic activity/Vol] 63 U/L High <55 [facility] Comment on above: Performed By: #### L AB99, LAB17, [id number] ####Paper Products Supervisor: KIMBERLY VIRGEN ([phone])[facility] [place] [address] Laboratory - Chemistry and C hemistry - challengeon 09-17-2024 Magnesium [Mass/Vol] 1.7 mg/dL 1.6 - 2 .6 mg/dL [facility] Lactate [Moles/Vol] 1 mmol/L 0.5 - 2. 2 mmol/L [facility] Lipase [Catalytic activity/Vol] 63 U/L High NINF - 55 U/L [facility] Laboratory - Chemistry and C hemistry - challengeOrdered By: Lila Banegas on 09-17-2024 Beta HCG ( test) Ql Negative Negative [facility] Comment on above: Please note: Very di lute urine specimens, as indicated by a low specific gravity, may not contain lead customer service representative levels of hCG. If is still suspected, a first morning urine specimen should be collected 48 hours later and tested. Beta HCG ( test) Ql (U) is the most common reason for HCG in urine, although choriocarcinoma, hydatidiform mole, and certain nontrophoblastic malignancies also result in detectable urinary HCG levels. Sensitivity = 20mIU/mL. [facility] Lipase [Catalytic activity/V ol]on 09-17-2024 Interpretation and review of laboratory results Abnormal [facility] MAGNESIUMon 09-17-2024 Magnesium [Mass/Vol] 1.7 mg/dL Normal 1.6-2.6 [facility] Comment on above: Result Comment: RILEY Bass COMMENTS:Higher values can be expected in females during menses. Performed By: #### L AB99, LAB17, [id number] ####Paper Products Supervisor: KIMBERLY VIRGEN ([phone])[facility])[address] [place] [address] Magnesium [Mass/Vol]on 09-17 Interpretation and review of laboratory results Normal [facility] Higher values can be expected in females during menses. [facility] No Panel Informationon 09-17 Interpretation and review of laboratory results Normal [facility] No Panel InformationOrdered By: Lila Freeman on 09-17-2024 [facility] Urinalysis complete panel (U )Ordered By: Korina Claros on 09-17-2024 Bacteria LM.HPF (Urine sed) [#/Area] Few Abnormal Negative /HPF [facility] Bilirubin Ql (U) Negative Negative mg/dL [facility] Clarity (U) Clear Clear [facility] Color (U) Light Yellow Lt. Yellow [facility] Epithelial cells.squamous LM.HPF (Urine sed) [#/Area] 3-5 [facility] Glucose Ql (U) Normal Normal (<70) mg/dL [facility] Hemoglobin Ql (U) Negative Negative mg/dL [facility] Hyaline casts Auto (Urine sed) [#/Area] Negative Negative /LPF [facility] Interpretation and review of laboratory results Abnormal [facility] Ketones (U) [Mass/Vol] mg/dL Abnormal Negat elliott mg/dL [facility] Leukocyte esterase Test strip Ql (U) Negative Negative Nesha/uL [facility] Mucus LM.HPF (Urine sed) [#/Area] Few Negative /LPF [facility] Nitrite Ql (U) Negative Negative [facility] pH (U) 5.5 [pH] 5.0 - 8.0 pH [facility] Protein (U) [Mass/Vol] 30 mg/dL Abnormal Negative [facility] RBC LM.HPF (Urine sed) [#/Area] 0-2 [facility] Specific gravity (U) [Rel density] 1.016 1.005 - 1.030 [facility] Urobilinogen (U) [Mass/Vol] Normal Normal (0-1) mg/dL [facility] WBC LM.HPF (Urine sed) [#/Area] 3-5 [facility] [id number] 09-16-2024 [id number] Normal [facility] CBC W Auto Differential pane l (Bld)Ordered By: Catherine Fernandez on 09-16-2024 Basophils (Bld) [#/Vol] 0 10*3/uL 0.0 - 0.2 10*3/uL [facility] Basophils/100 WBC (Bld) 0.5 % 0.0 - 2.0 % [facility] Eosinophils (Bld) [#/Vol] 0.1 10*3/uL 0.0 - 0.5 10*3/uL [facility] Eosinophils/100 WBC (Bld) 1.6 % 0.0 - 6.0 % [facility] Erythrocyte distribution width (RBC) [Ratio] 16.3 % High 11.5 - 15.0 % [facility] Hematocrit (Bld) [Volume fraction] 34.5 % Low 35.0 - 47.0 % [facility] Hemoglobin (Bld) [Mass/Vol] 10.9 g/dL Low 11.7 - 16.0 g/dL [facility] Immature granulocytes (Bld) [#/Vol] 0 10*3/uL NINF - 0.1 10*3/uL [facility] Immature granulocytes/100 WBC (Bld) 0.3 % 0.0 - 2.0 % [facility] Interpretation and review of laboratory results Abnormal [facility] Lymphocytes (Bld) [#/Vol] 1.5 10*3/uL 1.0 - 4.3 10*3/uL [facility] Lymphocytes/100 WBC (Bld) 24.1 % 15.0 - 45.0 % [facility] MCH (RBC) [Entitic mass] 25.9 pg Low 26. 0 - 34.0 pg [facility] MCHC (RBC) [Mass/Vol] 31.6 % 30.5 - 36.0 % [facility] MCV (RBC) [Entitic vol] 81.9 fL 77.0 - 99.0 fL [facility] Monocytes (Bld) [#/Vol] 0.6 10*3/uL 0.0 - 0.9 10*3/uL [facility] Monocytes/100 WBC (Bld) 9.9 % 5.0 - 13.0 % [facility] Neutrophils (Bld) [#/Vol] 3.9 10*3/uL 1.8 - 7.5 10*3/uL [facility] Neutrophils/100 WBC (Bld) 63.6 % 38.0 - 82.0 % [facility] Nucleated RBC/100 WBC (Bld) [Ratio] 0 % [facility] Platelet mean volume (Bld) [Entitic vol] 9.7 fL 9.0 - 12.7 fL [facility] Platelets (Bld) [#/Vol] 249 10*3/uL 140 - 440 10*3/uL [facility] RBC (Bld) [#/Vol] 4.21 10*6/uL 3.80 - 5.20 10*6/uL [facility] WBC (Bld) [#/Vol] 6.2 10*3/uL 3.6 - 10.7 10*3/uL [facility] CBC WITH AUTO DIFFERENTIALon 09-16-2024 Basophils (Bld) [#/Vol] 0.0 10*3/uL Normal 0.0-0.2 [facility] Comment on above: Performed By: #### L [id number] ####Paper Products Supervisor: KIMBERLY VIRGEN ([phone])[facility])[address] [place] [address] Basophils/100 WBC (Bld) 0.5 % Normal 0.0-2.0 [facility] Comment on above: Performed By: #### L [id number] ####Paper Products Supervisor: KIMBERLY VIRGEN ([phone])[facility])[address] [place] [address] Eosinophils (Bld) [#/Vol] 0.1 10*3/uL Normal 0.0-0.5 [facility] Comment on above: Performed By: #### L [id number] ####Paper Products Supervisor: KIMBERLY VIRGEN ([phone])[facility])[address] [place] [address] Eosinophils/100 WBC (Bld) 1.6 % Normal 0.0-6.0 [facility] Comment on above: Performed By: #### L [id number] ####Paper Products Supervisor: KIMBERLY VIRGEN ([phone])[facility])[address] [place] [address] Erythrocyte distribution width (RBC) [Ratio] 16.3 % High 11.5-15.0 [facility] Comment on above: Performed By: #### L [id number] ####Paper Products Supervisor: KIMBERLY VIRGEN ([phone])[facility])[address] [place] [address] Hematocrit (Bld) [Volume fraction] 34.5 % Low 35.0-47.0 [facility] Comment on above: Performed By: #### L [id number] ####Paper Products Supervisor: KIMBERLY VIRGEN ([phone])[facility])[address] [place] [address] Hemoglobin (Bld) [Mass/Vol] 10.9 g/dL Low 11.7-16.0 [facility] Comment on above: Performed By: #### L [id number] ####Paper Products Supervisor: KIMBERLY VIRGEN ([phone])[facility])[address] [place] [address] IMMATURE GRANS % 0.3 % Normal 0.0-2.0 [facility] Comment on above: Performed By: #### L [id number] ####Paper Products Supervisor: KIMBERLY VIRGEN ([phone])[address] IMMATURE GRANS ABSOLUTE 0.0 10*3/uL Normal <0.1 [facility] Comment on above: Performed By: #### L [id number] ####Paper Products Supervisor: KIMBERLY VIRGEN ([phone])[facility])[address] [place] [address] Lymphocytes (Bld) [#/Vol] 1.5 10*3/uL Normal 1.0-4.3 [facility] Comment on above: Performed By: #### L [id number] ####Paper Products Supervisor: KIMBERLY VIRGEN ([phone])[address] Lymphocytes/100 WBC (Bld) 24.1 % Normal 15.0-45.0 [facility] Comment on above: Performed By: #### L [id number] ####Paper Products Supervisor: KIMBERLY VIRGEN ([phone])[facility])[address] [place] [address] MCH (RBC) [Entitic mass] 25.9 pg Low 26.0-34.0 [facility] Comment on above: Performed By: #### L [id number] ####Paper Products Supervisor: KIMBERLY VIRGEN ([phone])[facility] [address] MCHC 31.6 % Normal 30.5-36.0 [facility] Comment on above: Performed By: #### L [id number] ####Paper Products Supervisor: KIMBERLY VIRGEN ([phone])[facility])[address] [place] [address] MCV (RBC) [Entitic vol] 81.9 fL Normal 77.0-99.0 [facility] Comment on above: Performed By: #### L [id number] ####Paper Products Supervisor: KIMBERLY VIRGEN ([phone])[facility])[address] [place] [address] Monocytes (Bld) [#/Vol] 0.6 10*3/uL Normal 0.0-0.9 [facility] Comment on above: Performed By: #### L [id number] ####Paper Products Supervisor: KIMBERLY VIRGEN ([phone])[facility] ([facility])[address] [place] [address] Monocytes/100 WBC (Bld) 9.9 % Normal 5.0-13.0 [facility] Comment on above: Performed By: #### L [id number] ####Paper Products Supervisor: KIMBERLY VIRGEN ([phone])[facility] ([facility])[address] [place] [address] NEUTROPHILS ABSOLUTE 3.9 10*3/uL Normal 1.8-7.5 [facility] Comment on above: Performed By: #### L [id number] ####Paper Products Supervisor: KIMBERLY VIRGEN ([phone])[facility])[address] [place] [address] Neutrophils/100 WBC (Bld) 63.6 % Normal 38.0-82.0 [facility] Comment on above: Performed By: #### L [id number] ####Paper Products Supervisor: KIMBERLY VIRGEN ([phone])[facility])[address] [place] [address] NRBC 0.0 /100 WBCs Normal 0.0-2.0 [facility] Comment on above: Performed By: #### L [id number] ####Paper Products Supervisor: KIMBERLY VIRGEN ([phone])[facility] ([facility])[address] [place] [address] Platelet mean volume (Bld) [Entitic vol] 9.7 fL Normal 9.0-12.7 [facility] Comment on above: Performed By: #### L [id number] ####Paper Products Supervisor: KIMBERLY VIRGEN ([phone])[facility] ([facility])[address] [place] [address] Platelets (Bld) [#/Vol] 249 10*3/uL Normal 140-440 [facility] Comment on above: Performed By: #### L [id number] ####Paper Products Supervisor: KIMBERLY VIRGEN ([phone])[facility] ([facility])[address] [place] [address] RBC (Bld) [#/Vol] 4.21 10*6/uL Normal 3.80-5.20 [facility] Comment on above: Performed By: #### L [id number] ####Paper Products Supervisor: KIMBERLY VIRGEN ([phone])[facility] ([facility])[address] [place] [address] WBC (Bld) [#/Vol] 6.2 10*3/uL Normal 3.6-10.7 [facility] Comment on above: Performed By: #### L [id number] ####Paper Products Supervisor: KIMBERLY VIRGEN ([phone])[facility] ([facility])[address] [place] [address] COMPREHENSIVE METABOLIC PANE Gilberto 09-16-2024 Albumin [Mass/Vol] 3.2 g/dL Low 3.5-5.0 [facility] Comment on above: Performed By: #### L AB17, LAB99, [id number] ####Paper Products Supervisor: KIMBERLY VIRGEN ([phone])[facility])[address] [place] [address] ALP [Catalytic activity/Vol] 45 U/L Normal 40-150 [facility] Comment on above: Performed By: #### L AB17, LAB99, [id number] ####Paper Products Supervisor: KIMBERLY VIRGEN ([phone])[facility] ([facility])[address] [place] [address] ALT [Catalytic activity/Vol] 22 U/L Normal <30 [facility] Comment on above: Performed By: #### L AB17, LAB99, [id number] ####Paper Products Supervisor: KIMBERLY VIRGEN ([phone])[facility] ([facility])[address] [place] [address] Anion gap [Moles/Vol] 10 mmol/L Normal 3-13 [facility] Comment on above: Performed By: #### L AB17, LAB99, [id number] ####Paper Products Supervisor: KIMBERLY VIRGEN ([phone])[facility] ([facility])[address] [place] [address] AST [Catalytic activity/Vol] 18 U/L Normal <34 [facility] Comment on above: Performed By: #### L AB17, LAB99, [id number] ####Paper Products Supervisor: KIMBERLY VIRGEN ([phone])[facility] ([facility])[address] [place] [address] Bilirubin [Mass/Vol] 0.3 mg/dL Normal <1.2 [facility] Comment on above: Performed By: #### L AB17, LAB99, [id number] ####Paper Products Supervisor: KIMBERLY VIRGEN ([phone])[facility] ([facility])[address] [place] [address] Calcium [Mass/Vol] 8.3 mg/dL Low 8.4-10.2 [facility] Comment on above: Performed By: #### L AB17, LAB99, [id number] ####Paper Products Supervisor: KIMBERLY VIRGEN ([phone])[facility])[address] [place] [address] Chloride [Moles/Vol] 109 mmol/L High 98-107 [facility] Comment on above: Performed By: #### L AB17, LAB99, [id number] ####Paper Products Supervisor: KIMBERLY VIRGEN ([phone])[facility])[address] [place] [address] CO2 [Moles/Vol] 19 mmol/L Low 22-29 [facility] Comment on above: Performed By: #### L AB17, LAB99, [id number] ####Paper Products Supervisor: KIMBERLY VIRGEN ([phone])[facility])[address] [place] [address] Creatinine [Mass/Vol] 0.58 mg/dL Normal 0.57-1.11 [facility] Comment on above: Performed By: #### L AB17, LAB99, [id number] ####Paper Products Supervisor: KIMBERLY VIRGEN ([phone])[facility])[address] [place] [address] GLOMERULAR FILTRATION RATE ML/MIN/1.73 SQ M.PREDICTED >90.0 Normal >60.0 [facility] Comment on above: Result Comment: Calc ulation based on the Chronic Kidney Disease Epidemiology Collaboration (CKD-EPI) equation refit without adjustment for race Performed By: #### L AB17, LAB99, [id number] ####Paper Products Supervisor: KIMBERLY VIRGEN ([phone])[facility])[address] [place] [address] Glucose [Mass/Vol] 74 mg/dL Normal 74-100 [facility] Comment on above: Performed By: #### L AB17, LAB99, [id number] ####Paper Products Supervisor: KIMBERLY VIRGEN ([phone])[facility])[address] [place] [address] Potassium [Moles/Vol] 3.1 mmol/L Low 3.5-5.1 [facility] Comment on above: Result Comment: [facility] potassium values may be up to 0.5 mmol/L lower than serum values. Performed By: #### L AB17, LAB99, [id number] ####Paper Products Supervisor: KIMBERLY VIRGEN ([phone])[facility])[address] [place] [address] Protein [Mass/Vol] 5.9 g/dL Low 6.4-8.3 [facility] Comment on above: Performed By: #### L AB17, LAB99, [id number] ####Paper Products Supervisor: KIMBERLY VIRGEN ([phone])[facility])[address] [place] [address] Sodium [Moles/Vol] 138 mmol/L Normal 136-145 [facility] Comment on above: Performed By: #### L AB17, LAB99, [id number] ####Paper Products Supervisor: KIMBERLY VIRGEN ([phone])[facility] ([facility])[address] [place] [address] Urea nitrogen [Mass/Vol] mg/dL Low 8-21 [facility] Comment on above: Performed By: #### Korey AB17, LAB99, [id number] ####Paper Products Supervisor: KIMBERLY VIRGEN ([phone])[facility] ([facility])[address] [place] [address] Comprehensive metabolic 1998 panelon 09-16-2024 Albumin [Mass/Vol] 3.2 g/dL Low 3.5 - 5.0 g/dL [facility] ALP [Catalytic activity/Vol] 45 U/L 40 - 150 U/L [facility] ALT [Catalytic activity/Vol] [facility] Anion gap [Moles/Vol] 10 mmol/L 3 - 13 mmol/L [facility] AST [Catalytic activity/Vol] 18 U/L [facility] U/L [facility] Bilirubin [Mass/Vol] 0.3 mg/dL NINF - 1.2 mg/dL [facility] Calcium [Mass/Vol] 8.3 mg/dL Low 8.4 - 10. 2 mg/dL [facility] Chloride [Moles/Vol] 109 mmol/L High 98 - 10 7 mmol/L [facility] CO2 [Moles/Vol] 19 mmol/L Low 22 - 29 mmol/L [facility] Creatinine [Mass/Vol] 0.58 mg/dL 0.57 - 1.11 mg/dL [facility] GFR/1.73 sq M.predicted (S/P/Bld) [Vol rate/Area] - PINF [facility] Comment on above: Calculation based on the Chronic Kidney Disease Epidemiology Collaboration (CKD-EPI) equation refit without adjustment for race Glucose [Mass/Vol] 74 mg/dL 74 - 100 mg/dL [facility] Interpretation and review of laboratory results Abnormal [facility] Potassium [Moles/Vol] 3.1 mmol/L Low 3.5 - 5.1 mmol/L [facility] Comment on above: Plasma potassium yuli ues may be up to 0.5 mmol/L lower than serum values. Protein [Mass/Vol] 5.9 g/dL Low 6.4 - 8.3 g/dL [facility] Sodium [Moles/Vol] 138 mmol/L 136 - 145 mmol/L [facility] Urea nitrogen [Mass/Vol] mg/dL Low 8 - 21 mg/dL [facility] Consulton 09-16-2024 Consult Normal [facility] Consult Normal [facility] LIPASEon 09-16-2024 Lipase [Catalytic activity/Vol] 42 U/L Normal <55 [facility] Comment on above: Performed By: #### L AB17, LAB99, [id number] ####Paper Products Supervisor: KIMBERLY VIRGEN ([phone])[facility])[address] [place] [address] Laboratory - Chemistry and C hemistry - challengeon 09-16-2024 Magnesium [Mass/Vol] 1.6 mg/dL 1.6 - 2 .6 mg/dL [facility] Lipase [Catalytic activity/Vol] 42 U/L NINF - 55 U/L [facility] Lipase [Catalytic activity/V ol]on 09-16-2024 Interpretation and review of laboratory results Normal [facility] MAGNESIUMon 09-16-2024 Magnesium [Mass/Vol] 1.6 mg/dL Normal 1.6-2.6 [facility] Comment on above: Result Comment: ORDE R COMMENTS:Higher values can be expected in females during menses. Performed By: #### L AB17, LAB99, [id number] ####Paper Products Supervisor: KIMBERLY VIRGEN ([phone])[facility] ([facility])[address] [place] [address] Magnesium [Mass/Vol]on 09-16 Interpretation and review of laboratory results Normal [facility] Higher values can be expected in females during menses. [facility] No Panel InformationOrdered By: Madison Varner on 09-16-2024 THC Positive Negative [facility] THC metabolites have been screened for by Immunoassay at 50 ng/mL threshold. POSITIVE results are not confirmed by a more specific alternative method unless requested. If confirmation is needed, request confirmation under separate order. NOTE: These results are for medical treatment only. Analysis performed using non-forensic procedures. [facility] No Panel Informationon 09-16 [facility] Nursing Noteon 09-16-2024 Nursing Note Normal [facility] Nursing Note Again reinforced wit h pt need to order something to eat. Full liq diet. Pt states that she gets nauseated even looking at food, everything makes her nauseated and sick. Normal [facility] 30on 09-15-2024 30 Normal [facility] CBC W Auto Differential pane l (Bld)Ordered By: Cesar Tavarez on 09-15-2024 Basophils (Bld) [#/Vol] 0 10*3/uL 0.0 - 0.2 10*3/uL [facility] Basophils/100 WBC (Bld) 0.3 % 0.0 - 2.0 % [facility] Eosinophils (Bld) [#/Vol] 0 10*3/uL 0.0 - 0.5 10*3/uL [facility] Eosinophils/100 WBC (Bld) 0.4 % 0.0 - 6.0 % [facility] Erythrocyte distribution width (RBC) [Ratio] 15.9 % High 11.5 - 15.0 % [facility] Hematocrit (Bld) [Volume fraction] 40.7 % 35.0 - 47.0 % [facility] Hemoglobin (Bld) [Mass/Vol] 13.3 g/dL 11.7 - 16.0 g/dL [facility] Immature granulocytes (Bld) [#/Vol] 0 10*3/uL NINF - 0.1 10*3/uL [facility] Immature granulocytes/100 WBC (Bld) 0.3 % 0.0 - 2.0 % [facility] Interpretation and review of laboratory results Abnormal [facility] Lymphocytes (Bld) [#/Vol] 0.9 10*3/uL Low 1.0 - 4.3 10*3/uL [facility] Lymphocytes/100 WBC (Bld) 13.2 % Low 15.0 - 45.0 % [facility] MCH (RBC) [Entitic mass] 25.7 pg Low 26. 0 - 34.0 pg [facility] MCHC (RBC) [Mass/Vol] 32.7 % 30.5 - 36.0 % [facility] MCV (RBC) [Entitic vol] 78.6 fL 77.0 - 99.0 fL [facility] Monocytes (Bld) [#/Vol] 0.6 10*3/uL 0.0 - 0.9 10*3/uL [facility] Monocytes/100 WBC (Bld) 8.5 % 5.0 - 13.0 % [facility] Neutrophils (Bld) [#/Vol] 5.4 10*3/uL 1.8 - 7.5 10*3/uL [facility] Neutrophils/100 WBC (Bld) 77.3 % 38.0 - 82.0 % [facility] Nucleated RBC/100 WBC (Bld) [Ratio] 0 % [facility] Platelet mean volume (Bld) [Entitic vol] 9.8 fL 9.0 - 12.7 fL [facility] Platelets (Bld) [#/Vol] 337 10*3/uL 140 - 440 10*3/uL [facility] RBC (Bld) [#/Vol] 5.18 10*6/uL 3.80 - 5.20 10*6/uL [facility] WBC (Bld) [#/Vol] 7 10*3/uL 3.6 - 10.7 10*3/uL [facility] CBC WITH AUTO DIFFERENTIALon 09-15-2024 Basophils (Bld) [#/Vol] 0.0 10*3/uL Normal 0.0-0.2 [facility] Comment on above: Performed By: #### L [id number] ####Paper Products Supervisor: KIMBERLY VIRGEN ([phone])[address] Basophils/100 WBC (Bld) 0.3 % Normal 0.0-2.0 [facility] Comment on above: Performed By: #### L [id number] ####Paper Products Supervisor: KIMBERLY VIRGEN ([phone])[facility])[address] [place] [address] Eosinophils (Bld) [#/Vol] 0.0 10*3/uL Normal 0.0-0.5 [facility] Comment on above: Performed By: #### L [id number] ####Paper Products Supervisor: KIMBERLY VIRGEN ([phone])[facility])[address] [place] [address] Eosinophils/100 WBC (Bld) 0.4 % Normal 0.0-6.0 [facility] Comment on above: Performed By: #### L [id number] ####Paper Products Supervisor: KIMBERLY VIRGEN ([phone])[address] Erythrocyte distribution width (RBC) [Ratio] 15.9 % High 11.5-15.0 [facility] Comment on above: Performed By: #### L [id number] ####Paper Products Supervisor: KIMBERLY VIRGEN ([phone])[facility])[address] [place] [address] Hematocrit (Bld) [Volume fraction] 40.7 % Normal 35.0-47.0 [facility] Comment on above: Performed By: #### L [id number] ####Paper Products Supervisor: KIMBERLY VIRGEN ([phone])[address] Hemoglobin (Bld) [Mass/Vol] 13.3 g/dL Normal 11.7-16.0 [facility] Comment on above: Performed By: #### L [id number] ####Paper Products Supervisor: KIMBERLY VIRGEN ([phone])[address] IMMATURE GRANS % 0.3 % Normal 0.0-2.0 [facility] Comment on above: Performed By: #### L [id number] ####Paper Products Supervisor: KIMBERLY VIRGEN ([phone])[facility])[address] [place] [address] IMMATURE GRANS ABSOLUTE 0.0 10*3/uL Normal <0.1 [facility] Comment on above: Performed By: #### L [id number] ####Paper Products Supervisor: KIMBERLY VIRGEN ([phone])[facility])[address] [place] [address] Lymphocytes (Bld) [#/Vol] 0.9 10*3/uL Low 1.0-4.3 [facility] Comment on above: Performed By: #### L [id number] ####Paper Products Supervisor: KIMBERLY VIRGEN ([phone])[facility])[address] [place] [address] Lymphocytes/100 WBC (Bld) 13.2 % Low 15.0-45.0 [facility] Comment on above: Performed By: #### L [id number] ####Paper Products Supervisor: KIMBERLY VIRGEN ([phone])[facility])[address] [place] [address] MCH (RBC) [Entitic mass] 25.7 pg Low 26.0-34.0 [facility] Comment on above: Performed By: #### L [id number] ####Paper Products Supervisor: KIMBERLY VIRGEN ([phone])[facility])[address] [place] [address] MCHC 32.7 % Normal 30.5-36.0 [facility] Comment on above: Performed By: #### L [id number] ####Paper Products Supervisor: KIMBERLY VIRGEN ([phone])[facility])[address] [place] [address] MCV (RBC) [Entitic vol] 78.6 fL Normal 77.0-99.0 [facility] Comment on above: Performed By: #### L [id number] ####Paper Products Supervisor: KIMBERLY VIRGEN ([phone])[facility])[address] [place] [address] Monocytes (Bld) [#/Vol] 0.6 10*3/uL Normal 0.0-0.9 [facility] Comment on above: Performed By: #### L [id number] ####Paper Products Supervisor: KIMBERLY VIRGEN ([phone])[facility] ([facility])[address] [place] [address] Monocytes/100 WBC (Bld) 8.5 % Normal 5.0-13.0 [facility] Comment on above: Performed By: #### L [id number] ####Paper Products Supervisor: KIMBERLY VIRGEN ([phone])[facility] ([facility])[address] [place] [address] NEUTROPHILS ABSOLUTE 5.4 10*3/uL Normal 1.8-7.5 [facility] Comment on above: Performed By: #### L [id number] ####Paper Products Supervisor: KIMBERLY VIRGEN ([phone])[facility] ([facility])[address] [place] [address] Neutrophils/100 WBC (Bld) 77.3 % Normal 38.0-82.0 [facility] Comment on above: Performed By: #### L [id number] ####Paper Products Supervisor: KIMBERLY VIRGEN ([phone])[facility] ([facility])[address] [place] [address] NRBC 0.0 /100 WBCs Normal 0.0-2.0 [facility] Comment on above: Performed By: #### L [id number] ####Paper Products Supervisor: KIMBERLY VIRGEN ([phone])[facility] ([facility])[address] [place] [address] Platelet mean volume (Bld) [Entitic vol] 9.8 fL Normal 9.0-12.7 [facility] Comment on above: Performed By: #### L [id number] ####Paper Products Supervisor: KIMBERLY VIRGEN ([phone])[facility] ([facility])[address] [place] [address] [place] Platelets (Bld) [#/Vol] 337 10*3/uL Normal 140-440 [facility] Comment on above: Performed By: #### L [id number] ####Paper Products Supervisor: KIMBERLY VIRGEN ([phone])[facility] ([facility])[address] [place] [address] RBC (Bld) [#/Vol] 5.18 10*6/uL Normal 3.80-5.20 [facility] Comment on above: Performed By: #### L [id number] ####Paper Products Supervisor: KIMBERLY VIRGEN ([phone])[facility])[address] [place] [address] WBC (Bld) [#/Vol] 7.0 10*3/uL Normal 3.6-10.7 [facility] Comment on above: Performed By: #### L [id number] ####Paper Products Supervisor: KIMBERLY VIRGEN ([phone])[facility])[address] [place] [address] COMPLETE URINALYSISon 2024 BACTERIA (#/HPF) IN URINE Few Abnormal Negative [facility] Comment on above: Performed By: #### L [id number] ####Paper Products Supervisor: KIMBERLY VIRGEN ([phone])[facility])[address] [place] [address] BILIRUBIN, TOTAL PRESENCE IN URINE Negative Normal Negative [facility] Comment on above: Performed By: #### L [id number] ####Paper Products Supervisor: KIMBERLY VIRGEN ([phone])[facility])[address] [place] [address] Clarity (U) Cloudy Abnormal Clear [facility] Comment on above: Performed By: #### L [id number] ####Paper Products Supervisor: KIMBERLY VIRGEN ([phone])[facility])[address] [place] [address] Color (U) Light Yellow Normal Lt. Yellow [facility] Comment on above: Performed By: #### L [id number] ####Paper Products Supervisor: KIMBERLY VIRGEN ([phone])[facility])[address] [place] [address] GLUCOSE (MG/DL) IN URINE Normal Normal Nor mal (<70) [facility] Comment on above: Performed By: #### L [id number] ####Paper Products Supervisor: KIMBERLY VIRGEN ([phone])[facility] ([facility])[address] [place] [address] HEMOGLOBIN PRESENCE IN URINE Negative Normal Negative [facility] Comment on above: Performed By: #### L [id number] ####Paper Products Supervisor: KIMBERLY VIRGEN ([phone])[facility] ([facility])[address] [place] [address] HYALINE CASTS (#/LPF) IN URINE SEDIMENT BY MICROSCOPY 3-5 Abnormal Negative [facility] Comment on above: Performed By: #### L [id number] ####Paper Products Supervisor: KIMBERLY VIRGEN ([phone])[facility] ([facility])[address] [place] [address] Ketones Ql (U) >150 Abnormal Negative [facility] Comment on above: Performed By: #### L [id number] ####Paper Products Supervisor: KIMBERLY VIRGEN ([phone])[facility] ([facility])[address] [place] [address] LEUKOCYTE ESTERASE PRESENCE IN URINE BY TEST STRIP Negative Normal Negative [facility] Comment on above: Performed By: #### L [id number] ####Paper Products Supervisor: KIMBERLY VIRGEN ([phone])[facility] ([facility])[address] [place] [address] MUCUS (#/LPF) IN URINE SEDIMENT Few Normal Negative [facility] Comment on above: Performed By: #### L [id number] ####Paper Products Supervisor: KIMBERLY VIRGEN ([phone])[facility] ([facility])[address] [place] [address] NITRITE PRESENCE IN URINE Negative Normal Negative [facility] Comment on above: Performed By: #### L [id number] ####Paper Products Supervisor: KIMBERLY VIRGEN ([phone])[facility])[address] [place] [address] pH (U) 6.0 [pH] Normal 5.0-8.0 [facility] Comment on above: Performed By: #### L [id number] ####Paper Products Supervisor: KIMBERLY VIRGEN ([phone])[facility] [place] [address] Protein (U) [Mass/Vol] 100 mg/dL Abnormal Negative [facility] Comment on above: Performed By: #### L [id number] ####Paper Products Supervisor: KIMBERLY VIRGEN ([phone])[facility] ([facility])[address] [place] [address] RBC (#/HPF) IN URINE SEDIMENT 0-2 Normal 0-2 [facility] Comment on above: Performed By: #### L [id number] ####Paper Products Supervisor: KIMBERLY VIRGEN ([phone])[facility] ([facility])[address] [place] [address] Specific gravity (U) [Rel density] 1.025 Normal 1.005-1.03 0 [facility] Comment on above: Performed By: #### L [id number] ####Paper Products Supervisor: KIMBERLY VIRGEN ([phone])[facility] ([facility])[address] [place] [address] SQUAMOUS EPITHELIAL CELLS (#/HPF) IN URINE SEDIMENT 11-25 Abnormal 3-5 [facility] Comment on above: Performed By: #### L [id number] ####Paper Products Supervisor: KIMBERLY VIRGEN ([phone])[facility])[address] [place] [address] UROBILINOGEN (MG/DL) IN URINE 2 mg/dL Abnormal Normal (0-1) [facility] Comment on above: Performed By: #### L [id number] ####Paper Products Supervisor: KIMBERLY VIRGEN ([phone])[facility] ([facility])[address] [place] [address] WBC (LEUKOCYTE) (#/HPF) IN URINE SEDIMENT 0-2 Normal 0-5 [facility] Comment on above: Performed By: #### L [id number] ####Paper Products Supervisor: KIMBERLY VIRGEN ([phone])[facility] ([facility])[address] [place] [address] COMPREHENSIVE METABOLIC PANE Gilberto 01-09-2025 Albumin [Mass/Vol] 4.2 g/dL Normal 3.5-5.0 [facility] Comment on above: Performed By: #### Korey AB99, [id number], LAB17 ####Paper Products Supervisor: KIMBERLY VIRGEN ([phone])[facility] ([facility])[address] [place] [address] ALP [Catalytic activity/Vol] 63 U/L Normal 40-150 [facility] Comment on above: Performed By: #### Korey AB99, [id number], LAB17 ####Paper Products Supervisor: KIMBERLY VIRGEN ([phone])[facility] ([facility])[address] [place] [address] ALT [Catalytic activity/Vol] 33 U/L High <30 [facility] Comment on above: Performed By: #### Korey MILES99, [id number], LAB17 ####Paper Products Supervisor: KIMBERLY VIRGEN ([phone])[facility])[address] [place] [address] Anion gap [Moles/Vol] 17 mmol/L High 3-13 [facility] Comment on above: Performed By: #### Korey BERMUDEZ, [id number], LAB17 ####Paper Products Supervisor: KIMBERLY VIRGEN ([phone])[facility])[address] [place] [address] AST [Catalytic activity/Vol] 29 U/L Normal <34 [facility] Comment on above: Result Comment: TCPo tential interference from hemolysis Performed By: #### Korey BERMUDEZ, [id number], LAB17 ####Paper Products Supervisor: KIMBERLY VIRGEN ([phone])[facility] ([facility])[address] [place] [address] [place] Bilirubin [Mass/Vol] 0.4 mg/dL Normal <1.2 [facility] Comment on above: Performed By: #### Korey AB99, [id number], LAB17 ####Paper Products Supervisor: KIMBERLY VIRGEN ([phone])[facility] ([facility])[address] [place] [address] Calcium [Mass/Vol] 9.7 mg/dL Normal 8.4-10.2 [facility] Comment on above: Performed By: #### L AB99, [id number], LAB17 ####Paper Products Supervisor: KIMBERLY VIRGEN ([phone])[facility])[address] [place] [address] Chloride [Moles/Vol] 101 mmol/L Normal 98-107 [facility] Comment on above: Performed By: #### L AB99, [id number], LAB17 ####Paper Products Supervisor: KIMBERLY VIRGEN ([phone])[facility] ([facility])[address] [place] [address] CO2 [Moles/Vol] 18 mmol/L Low 22-29 [facility] Comment on above: Performed By: #### Korey AB99, [id number], LAB17 ####[employer] Supervisor: KIMBERLY VIRGEN ([phone])[facility])[address] [place] [address] Creatinine [Mass/Vol] 0.77 mg/dL Normal 0.57-1.11 [facility] Comment on above: Performed By: #### L AB99, [id number], LAB17 ####[employer] Supervisor: KIMBERLY VIRGEN ([phone])[facility])[address] [place] [address] GLOMERULAR FILTRATION RATE ML/MIN/1.73 SQ M.PREDICTED >90.0 Normal >60.0 [facility] Comment on above: Result Comment: Calc ulation based on the Chronic Kidney Disease Epidemiology Collaboration (CKD-EPI) equation refit without adjustment for race Performed By: #### L AB99, [id number], [id number] ####[employer] Supervisor: KIMBERLY VIRGEN ([phone])[facility] [facility])[address] [place] [address] [place] Glucose [Mass/Vol] 90 mg/dL Normal 74-100 [facility] Comment on above: Performed By: #### L AB99, [id number], [id number] ####Paper Products Supervisor: KIMBERLY VIRGEN ([phone])[facility])[address] [place] [address] [place] Potassium [Moles/Vol] 3.1 mmol/L Low 3.5-5.1 [facility] Comment on above: Result Comment: [facility] potassium values may be up to 0.5 mmol/L lower than serum values. Performed By: #### L AB99, [id number], LAB17 ####Paper Products Supervisor: KIMBERLY VIRGEN ([phone])[facility])[address] [place] [address] Protein [Mass/Vol] 8.1 g/dL Normal 6.4-8.3 [facility] Comment on above: Performed By: #### L AB99, [id number], LAB17 ####Paper Products Supervisor: KIMBERLY VIRGEN ([phone])[address] Sodium [Moles/Vol] 136 mmol/L Normal 136-145 [facility] Comment on above: Performed By: #### L AB99, [id number], LAB17 ####Paper Products Supervisor: KIMBERLY VIRGEN ([phone])[facility])[address] [place] [address] Urea nitrogen [Mass/Vol] mg/dL Low 8-21 [facility] Comment on above: Performed By: #### L AB99, [id number], LAB17 ####Paper Products Supervisor: KIMBERLY VIRGEN ([phone])[facility])[address] [place] [address] CT ABDOMEN PELVIS W CONTRAST on 09-15-2024 CT ABDOMEN PELVIS W CONTRAST Normal [facility] CT Abdomen and Pelvis W cont rast Michael 09-15-2024 1. No acute process. Report Dictated on Electronically Signed By: Aletha White MD Electronically Signed Date/Time: 09/15/2024 1:05 PM [facility] [place] [facility]OLOGY [facility] Patient Name: ADDIS TORRES : 2000 Exam Date/Time: 09/15/2024 12:53 Procedure: CT ABDOMEN PELVIS W CONTRAST Ordering Provider: WINCHESTER ADAM Reason For Exam: Abdominal pain, acute, nonlocalized EXAMINATION: CT ABDOMEN PELVIS W CONTRAST CLINICAL HISTORY: Abdominal pain, acute, nonlocalized COMPARISON: None TECHNIQUE: Contiguous axial images were obtained through the abdomen and pelvis from the level of the diaphragmatic domes through the pubic symphysis following bolus administration of intravenous contrast. Dose reduction was employed with automated exposure control. FINDINGS: Included images of the lower thorax: No focal lung consolidation or pleural effusion. Hepatobiliary: Unremarkable liver without biliary dilation evident. The gallbladder is surgically absent. Pancreas: Unremarkable Spleen: Unremarkable Adrenal Glands: Unremarkable Kidneys and ureters: No calculi or hydroureteronephrosis. Abdominal vasculature: Unremarkable GI tract: No evidence of obstruction. The appendix is normal. Peritoneum and retroperitoneum: No free fluid or free air is noted. Lymph Nodes: No abdominal lymphadenopathy is evident. Pelvis: Status post hysterectomy. The ovaries are normal in size. Nondistended urinary bladder. Visualized musculoskeletal structures: No acute fracture or destructive osseous lesion is identified. [facility] RADIOLOGY [facility] Aletha White M D - 09/15/2024 Patient Name: ADDIS TORRES : 2000 Exam Date/Time: 09/15/2024 12:53 Procedure: CT ABDOMEN PELVIS W CONTRAST Ordering Provider: WINCHESTER ADAM Reason For Exam: Abdominal pain, acute, nonlocalized EXAMINATION: CT ABDOMEN PELVIS W CONTRAST CLINICAL HISTORY: Abdominal pain, acute, nonlocalized COMPARISON: None TECHNIQUE: Contiguous axial images were obtained through the abdomen and pelvis from the level of the diaphragmatic domes through the pubic symphysis following bolus administration of intravenous contrast. Dose reduction was employed with automated exposure control. FINDINGS: Included images of the lower thorax: No focal lung consolidation or pleural effusion. Hepatobiliary: Unremarkable liver without biliary dilation evident. The gallbladder is surgically absent. Pancreas: Unremarkable Spleen: Unremarkable Adrenal Glands: Unremarkable Kidneys and ureters: No calculi or hydroureteronephrosis. Abdominal vasculature: Unremarkable GI tract: No evidence of obstruction. The appendix is normal. Peritoneum and retroperitoneum: No free fluid or free air is noted. Lymph Nodes: No abdominal lymphadenopathy is evident. Pelvis: Status post hysterectomy. The ovaries are normal in size. Nondistended urinary bladder. Visualized musculoskeletal structures: No acute fracture or destructive osseous lesion is identified. IMPRESSION: 1. No acute process. Report Dictated on Electronically Signed By: Aletha White MD Electronically Signed Date/Time: 09/15/2024 1:05 PM EST [facility] Radiology Study observation (narrative) [facility] CT Abdomen and Pelvis W cont rast IVOrdered By: Aletha White on 09-15-2024 [facility] [employer] Work Phone: Comprehensive metabolic 1998 panelon 09-15-2024 Albumin [Mass/Vol] 4.2 g/dL 3.5 - 5.0 g/dL [facility] ALP [Catalytic activity/Vol] 63 U/L 40 - 150 U/L [facility] ALT [Catalytic activity/Vol] 33 U/L High NINF - 30 U/L [facility] Anion gap [Moles/Vol] 17 mmol/L High 3 - 13 mmol/L [facility] AST [Catalytic activity/Vol] 29 [facility]/L [facility] Comment on above: TC Potential interference from hemolysis Bilirubin [Mass/Vol] 0.4 mg/dL NINF - 1.2 mg/dL [facility] Calcium [Mass/Vol] 9.7 mg/dL 8.4 - 10. 2 mg/dL [facility] Chloride [Moles/Vol] 101 mmol/L 98 - 10 7 mmol/L [facility] CO2 [Moles/Vol] 18 mmol/L Low 22 - 29 mmol/L [facility] Creatinine [Mass/Vol] 0.77 mg/dL 0.57 - 1.11 mg/dL [facility] GFR/1.73 sq M.predicted (S/P/Bld) [Vol rate/Area] - PINF [facility] Comment on above: Calculation based on the Chronic Kidney Disease Epidemiology Collaboration (CKD-EPI) equation refit without adjustment for race Glucose [Mass/Vol] 90 mg/dL 74 - 100 mg/dL [facility] Potassium [Moles/Vol] 3.1 mmol/L Low 3.5 - 5.1 mmol/L [facility] Comment on above: Plasma potassium yuli ues may be up to 0.5 mmol/L lower than serum values. Protein [Mass/Vol] 8.1 g/dL 6.4 - 8.3 g/dL [facility] Sodium [Moles/Vol] 136 mmol/L 136 - 145 mmol/L [facility] Urea nitrogen [Mass/Vol] mg/dL Low 8 - 21 mg/dL [facility] Consulton 09-15-2024 Consult Normal [facility] DRUGS OF ABUSEon 09-15-2024 AMPHETAMINE SCREEN Negative Normal [facility] Comment on above: Performed By: #### L [id number] ####Paper Products Supervisor: KIMBERLY VIRGEN ([phone])[facility])[address] [place] [address] BARBITURATES SCREEN Negative Normal [facility] Comment on above: Performed By: #### L [id number] ####Paper Products Supervisor: KIMBERLY VIRGEN ([phone])[facility])[address] [place] [address] BENZODIAZEPINE SCREEN Negative Normal [facility] Comment on above: Performed By: #### L [id number] ####Paper Products Supervisor: KIMBERLY VIRGEN ([phone])[facility])[address] [place] [address] COCAINE METAB. SCREEN Negative Normal [facility] Comment on above: Performed By: #### L [id number] ####Paper Products Supervisor: KIMBERLY VIRGEN ([phone])[facility])[address] [place] [address] FENTANYL SCREEN, UR QUAL Negative Normal [facility] Comment on above: Result Comment: RILEY Bass COMMENTS:The expected value for all of the drugs listed above is Negative.The following drugs or drug groups have been screened for by Immunoassay at the following thresholds:Amphetamine class (1000 ng/mL)Barbiturates (200 ng/mL)Benzodiazepines (200 ng/mL)Cocaine (300 ng/mL)Methadone (300 ng/mL)Opiates (300 ng/mL)Oxycodone (100 ng/mL)PCP (25 ng/mL)Fentanyl (1.0 ng/ml)NOTE: These results are for medical treatment only. Analysis performed using non-forensic procedures. POSITIVE results are NOT confirmed by a more specificalternative method unless requested. If confirmation is needed, request confirmation under separate order. Performed By: #### L [id number] ####Paper Products Supervisor: KIMBERLY VIRGEN ([phone])[facility])[address] [place] [address] METHADONE SCREEN Negative Normal [facility] Comment on above: Performed By: #### L [id number] ####Paper Products Supervisor: KIMBERLY VIRGEN ([phone])[facility] ([facility])[address] [place] [address] OPIATES SCREEN Positive Normal [facility] Comment on above: Performed By: #### L [id number] ####Paper Products Supervisor: KIMBERLY VIRGEN ([phone])[facility] ([facility])[address] [place] [address] OXYCODONE SCREEN Negative Normal [facility] Comment on above: Performed By: #### L [id number] ####Paper Products Supervisor: KIMBERLY VIRGEN ([phone])[facility])[address] [place] [address] PHENCYCLIDINE SCREEN Negative Normal [facility] Comment on above: Performed By: #### L [id number] ####Paper Products Supervisor: KIMBERLY VIRGEN ([phone])[facility])[address] [place] [address] ED Provider Noteon ED Provider Note Normal [facility] LACTIC ACID WITH REFLEXon Lactate [Moles/Vol] 1.2 mmol/L Normal 0.5-2.2 [facility] Comment on above: Performed By: #### L [id number] ####Paper Products Supervisor: KIMBERLY VIRGEN ([phone])[facility] ([facility])[address] [place] [address] LIPASEon 09-15-2024 Lipase [Catalytic activity/Vol] 58 U/L High <55 [facility] Comment on above: Performed By: #### L AB99, [id number], LAB17 ####Paper Products Supervisor: KIMBERLY VIRGEN ([phone])[facility])[address] [place] [address] Laboratory - Chemistry and C hemistry - challengeon 09-15-2024 Lactate [Moles/Vol] 1.2 mmol/L 0.5 - 2. 2 mmol/L [facility] Lipase [Catalytic activity/Vol] 58 U/L High NINF - 55 U/L [facility] Magnesium [Mass/Vol] 1.8 mg/dL 1.6 - 2 .6 mg/dL [facility] Laboratory - Drug toxicology on 09-15-2024 Amphetamines Screen method >1000 ng/mL Ql (U) Negative [facility] Barbiturates Screen method >200 ng/mL Ql (U) Negative [facility] Benzodiazepines Ql (U) Negative [facility] Methadone Screen Ql (U) Negative S [facility] Opiates Screen Ql (U) Positive [facility] oxyCODONE Ql (U) Negative [facility] Phencyclidine Ql (U) Negative [facility] MAGNESIUMon 09-15-2024 Magnesium [Mass/Vol] 1.8 mg/dL Normal 1.6-2.6 [facility] Comment on above: Result Comment: RILEY Bass COMMENTS:Higher values can be expected in females during menses. Performed By: #### L AB99, [id number], LAB17 ####Paper Products Supervisor: KIMBERLY VIRGEN ([phone])[address] Magnesium [Mass/Vol]on 09-15 Interpretation and review of laboratory results Normal [facility] Higher values can be expected in females during menses. [facility] Medical Studenton 09-15-2024 Medical Student Normal [facility] No Panel Informationon 09-15 COCAINE METAB. SCREEN Negative [facility] FENTANYL SCREEN, UR QUAL Negative [facility] The expected value f or all of the drugs listed above is Negative. The following drugs or drug groups have been screened for by Immunoassay at the following thresholds: Amphetamine class (1000 ng/mL) Barbiturates (200 ng/mL) Benzodiazepines (200 ng/mL) Cocaine (300 ng/mL) Methadone (300 ng/mL) Opiates (300 ng/mL) Oxycodone (100 ng/mL) PCP (25 ng/mL) Fentanyl (1.0 ng/ml) NOTE: These results are for medical treatment only. Analysis performed using non-forensic procedures. POSITIVE results are NOT confirmed by a more specific alternative method unless requested. If confirmation is needed, request confirmation under separate order. [facility] Interpretation and review of laboratory results Normal [facility] Interpretation and review of laboratory results Abnormal [facility] Nursing Noteon 09-15-2024 Nursing Note Patient IV infiltrat ed. Patient reported to this RN that her current IV was placed with the use of ultrasound guide. This RN tried twice and was unable to get access. CONTENT SPECIALIST called for help of new IV placement. Normal [facility] Nursing Note Encouraged pt to ord er a meal. Pt aware that she is on a clear liq diet till 12 midnight Normal [facility] Nursing Note Normal [facility] THC (MARIJUANA), URINE, CONF IRMATIONon 09-15-2024 REVIEWED BY Kaylyn Gonzalez MT Normal [facility] Comment on above: Result Comment: RILEY R COMMENTS:The following were tested for in the urine specimen submitted:THC METABOLITESUrine specimen confirmed by Gas Chromatography/Mass Spectrometry.NOTE: These results are for medical treatment only. Analysis performed using non-forensic procedures.This test has not been cleared by the [place] Food and Drug Administration (FDA). The FDA has deterined that such clearance or approval is not necessary. The performance chararcteristics have been determined by the clinical laboratories of [facility]. Performed By: #### L [id number], [id number] ####Paper Products Supervisor: KIMBERLY VIRGEN ([phone])[facility] [place] [address] THC CONFIRMATION Detected Normal Not Detected [facility] Comment on above: Performed By: #### L [id number], [id number] ####Paper Products Supervisor: KIMBERLY VIRGEN ([phone])[facility])[address] [place] [address] THC SCREENon 09-15-2024 THC- THC50 Positive Normal Negative [facility] Comment on above: Result Comment: ORDE R COMMENTS:THC metabolites have been screened for by Immunoassay at 50 ng/mL threshold. POSITIVE results are not confirmed by a more specific alternative method unless requested. If confirmation is needed, request confirmation under separate order.NOTE: These results are for medical treatment only. Analysis performed using non-forensic procedures. Performed By: #### L [id number], [id number] ####Paper Products Supervisor: KIMBERLY VIRGEN ([phone])[address] Urinalysis complete panel (U )Ordered By: Elizabeth Fernandez on 09-15-2024 Bacteria LM.HPF (Urine sed) [#/Area] Few Abnormal Negative /HPF [facility] Bilirubin Ql (U) Negative Negative mg/dL [facility] Clarity (U) Cloudy Abnormal Clear [facility] Color (U) Light Yellow Lt. Yellow [facility] Epithelial cells.squamous LM.HPF (Urine sed) [#/Area] 11-25 Abnormal [facility] Glucose Ql (U) Normal Normal (<70) mg/dL [facility] Hemoglobin Ql (U) Negative Negative mg/dL [facility] Hyaline casts Auto (Urine sed) [#/Area] 3-5 Abnormal Negative /LPF [facility] Interpretation and review of laboratory results Abnormal [facility] Ketones (U) [Mass/Vol] mg/dL Abnormal Negat elliott mg/dL [facility] Leukocyte esterase Test strip Ql (U) Negative Negative Nesha/uL [facility] Mucus LM.HPF (Urine sed) [#/Area] Few Negative /LPF [facility] Nitrite Ql (U) Negative Negative [facility] pH (U) 6.0 [pH] 5.0 - 8.0 pH [facility] Protein (U) [Mass/Vol] 100 mg/dL Abnormal Negative [facility] RBC LM.HPF (Urine sed) [#/Area] 0-2 [facility] Specific gravity (U) [Rel density] 1.025 1.005 - 1.030 [facility] Urobilinogen (U) [Mass/Vol] 2 mg/dL Abnormal Normal (0-1) [facility] WBC LM.HPF (Urine sed) [#/Area] 0-2 [facility] Abdomen/Pelvis W IV Cont ONL Yon 09-14-2024 Abdomen/Pelvis W IV Cont ONLY [facility] Services [address] [place] [address] Abdomen/Pelvis W IV Cont ONLY MR#: [id number] Acct: [id number] Name: ADDIS TORRES CHIKIS Rep #: [id number] : 2000 F 24 From: Shahid Zhang MD PCP: Care Physician,No Primary Status: REG ER Study: Abdomen/Pelvis W IV Cont ONLY Date of Exam: Exam# [id number] Ordering Dr: Xavier Patterson DO [id number] EXAM: CT ABDOMEN AND PELVIS WITH INTRAVENOUS CONTRAST CLINICAL INDICATION: abd pain TECHNIQUE: Helically acquired images were obtained of the abdomen and pelvis with intravenous contrast. This CT exam was performed using one or more of the following dose reduction techniques: automated exposure control, adjustment of the mA and/or kV according to patient size, and/or use of iterative reconstruction technique. CONTRAST: IV 100mL Isovue-300 RADIATION DOSE: CTDIvol = 15.64 mGy, DLP = 1168.92 mGy-cm COMPARISON: CT abdomen pelvis 09/07/2020 FINDINGS: LOWER THORAX: Unremarkable. Lung bases are clear. No cardiomegaly. No significant pericardial effusion. ABDOMEN: LIVER: Unremarkable. Homogeneous. No focal mass. GALLBLADDER AND BILE DUCTS: Cholecystectomy. No intra- or extrahepatic biliary ductal dilation. PANCREAS: Unremarkable. No focal cystic or solid mass. SPLEEN: Unremarkable. Normal size without focal cystic or solid mass. ADRENALS: Unremarkable. No nodules. KIDNEYS AND URETERS: No ureteral stone or renal obstruction. Normal renal size and position. STOMACH AND BOWEL: Unremarkable. No stomach or bowel distention. No focal inflammatory change. PELVIS: APPENDIX: The appendix is normal. BLADDER: Unremarkable. REPRODUCTIVE: Hysterectomy. ABDOMEN and PELVIS: INTRAPERITONEAL SPACE: Unremarkable. No ascites or other fluid collection. No free air. BONES/JOINTS: Unremarkable. No suspicious lytic or blastic abnormality. SOFT TISSUES: Unremarkable. No discrete abdominal or pelvic wall hernia. VASCULATURE: Unremarkable. Abdominal aorta is non-dilated. LYMPH NODES: Unremarkable. No enlarged lymph nodes. CT/Abdomen/Pelvis W IV Cont ONLY IMPRESSION: No acute findings in the abdomen or pelvis. Electronically Signed: Shahid Zhang MD at 2:37 EST , CC: Dr. Xavier Patterson, DO; No Primary Care Physician Music Education Adjunct Professor: Signed Normal [facility] CBC W/Diff, Automatedon 01-0 -2024 Absolute Lymph 1.21 X10 3/uL Normal 0.83-4.51 [facility] Comment on above: Performed By: #### L [id number], L100.0100, L500.4050 ####[facility] [address] [place], [address] Absolute Neut 5.3 X10 3/uL Normal 2.0-7.7 [facility] Comment on above: Performed By: #### L 501.2450, L100.0100, L500.4050 ####[facility] [address] [place], [address] Basophils/100 WBC (Bld) 0.5 % Normal 0-1 [facility] Comment on above: Performed By: #### L 501.2450, L100.0100, L500.4050 ####[facility] [address] [place], [address] Eosinophils/100 WBC (Bld) 1.1 % Normal 0-5 [facility] Comment on above: Performed By: #### L 501.2450, L100.0100, L500.4050 ####[facility] [address] [place], [address] Erythrocyte distribution width (RBC) [Ratio] 15.8 % High 11.6-14.6 [facility] Comment on above: Performed By: #### L 501.2450, L100.0100, L500.4050 ####[facility] [address] [place], [address] Hematocrit (Bld) [Volume fraction] 40.1 % Normal 37-47 [facility] Comment on above: Performed By: #### L 501.2450, L100.0100, L500.4050 ####[facility] [address] [place], [address] Hemoglobin (Bld) [Mass/Vol] 12.7 g/dL Normal 12.0-15.0 [facility] Comment on above: Performed By: #### L 501.2450, L100.0100, L500.4050 ####[facility] [address] [place], [address] IG% 0.400 Normal 0.0-0.9 [facility] Comment on above: Result Comment: IG% - Immature Granulocytes (promyelocytes, myelocytes and metamyelocytes) > 1% indicates that a LEFT SHIFT is Present. Performed By: #### L 501.2450, L100.0100, L500.4050 ####[facility] [address] [place], [address] Lymphocytes/100 WBC (Bld) 16.5 % Low 19-41 [facility] Comment on above: Performed By: #### L 501.2450, L100.0100, L500.4050 ####[facility] [address] [place], [address] MCH (RBC) [Entitic mass] 25.6 pg Low 27.0-32.0 [facility] Comment on above: Performed By: #### L 501.2450, L100.0100, L500.4050 ####[facility] [address] [place], [address] MCHC (RBC) [Mass/Vol] 31.7 g/dL Low 32-36 [facility] Comment on above: Performed By: #### L 501.2450, L100.0100, L500.4050 ####[facility] [address] [place], [address] MCV (RBC) [Entitic vol] 80.8 fL Low 81-99 [facility] Comment on above: Performed By: #### L 501.2450, L100.0100, L500.4050 ####[facility] [address] [place], [address] Monocytes/100 WBC (Bld) 9.3 % Normal 0-10 [facility] Comment on above: Performed By: #### L 501.2450, L100.0100, L500.4050 ####[facility] [address] [place], [address] Neutrophils/100 WBC (Bld) 72.2 % High 47-70 [facility] Comment on above: Performed By: #### L 501.2450, L100.0100, L500.4050 ####[facility] [address] [place], [address] Nucleated RBC (Bld) [#/Vol] 0 10*3/uL Normal 0-5 [facility] Comment on above: Performed By: #### L 501.2450, L100.0100, L500.4050 ####[facility] [address] [place], [address] Platelet mean volume (Bld) [Entitic vol] 9.7 fL Normal 6.2-12.0 [facility] Comment on above: Performed By: #### L 501.2450, L100.0100, L500.4050 ####[facility] [address] [place], [address] Platelets (Bld) [#/Vol] 325 10*3/uL Normal 150-450 [facility] Comment on above: Performed By: #### L 501.2450, L100.0100, L500.4050 ####[facility] [address] [place], [address] RBC (Bld) [#/Vol] 4.96 10*6/uL Normal 4.2-5.4 [facility] Comment on above: Performed By: #### L 501.2450, L100.0100, L500.4050 ####[facility] [address] [place], [address] RDW SD 45.7 fl High 35.1-43.9 [facility] Comment on above: Performed By: #### L 501.2450, L100.0100, L500.4050 ####[facility] [address] [place], [address] WBC (Bld) [#/Vol] 7.4 10*3/uL Normal 4.4-11.0 [facility] Comment on above: Performed By: #### L 501.2450, L100.0100, L500.4050 ####[facility] [address] [place], [address] Comprehensive Metabolic Prof ilon 09-14-2024 Albumin [Mass/Vol] 3.8 g/dL Normal 3.2-5.0 [facility] Comment on above: Performed By: #### L 501.2450, L100.0100, L500.4050 ####[facility] [address] [place], [address] Albumin/Globulin [Mass ratio] 1.0 {ratio} Normal 0.9-2.4 [facility] Comment on above: Performed By: #### L 501.2450, L100.0100, L500.4050 ####[facility] [address] [place], [address] ALK P 64 U/L Normal 45-117 [facility] Comment on above: Performed By: #### L 501.2450, L100.0100, L500.4050 ####[facility] [address] [place], [address] ALT [Catalytic activity/Vol] 42 U/L Normal 13-56 [facility] Comment on above: Performed By: #### L 501.2450, L100.0100, L500.4050 ####[facility] [address] [place], [address] AST [Catalytic activity/Vol] 19 U/L Normal 15-37 [facility] Comment on above: Result Comment: Slig ht Hemolysis, Result may be falsely increased. Performed By: #### L 501.2450, L100.0100, L500.4050 ####[facility] [address] [place], [address] Bilirubin [Mass/Vol] 0.40 mg/dL Normal 0.20-1.00 [facility] Comment on above: Result Comment: For patients on eltrombopag therapy, use of Dimension [place] TBIL is not recommended. Performed By: #### L 501.2450, L100.0100, L500.4050 ####[facility] [address] [place], [address] BUN/CRE 2.5 RATIO Low 10-20 [facility] Comment on above: Performed By: #### L 501.2450, L100.0100, L500.4050 ####[facility] [address] [place], [address] CA,Total 9.6 mg/dL Normal 8.5-10.1 [facility] Comment on above: Performed By: #### L 501.2450, L100.0100, L500.4050 ####[facility] [address] [place], [address] Chloride [Moles/Vol] 101 mmol/L Normal 98-107 [facility] Comment on above: Performed By: #### L 501.2450, L100.0100, L500.4050 ####[facility] [address] [place], [address] CO2 [Moles/Vol] 20.0 mmol/L Low 21.0-32.0 [facility] Comment on above: Performed By: #### L 501.2450, L100.0100, L500.4050 ####[facility] [address] [place], [address] Creatinine [Mass/Vol] 0.79 mg/dL Normal 0.55-1.02 [facility] Comment on above: Result Comment: The validity of the calculated GFR GFRAA in patients over 70 years has not been determined. Clinical correlation is essential. Performed By: #### L 501.2450, L100.0100, L500.4050 ####[facility] [address] [place], [address] ECRCL 129.84 ml/min Normal [facility] Comment on above: Performed By: #### L 501.2450, L100.0100, L500.4050 ####[facility] [address] [place], [address] EST GFR - AA 115 mL/min Normal >60 [facility] Comment on above: Result Comment: Afri can [place] GFR Calc Performed By: #### L 501.2450, L100.0100, L500.4050 ####[facility] [address] [place], [address] GAP 15 Normal 5-15 [facility] Comment on above: Performed By: #### L 501.2450, L100.0100, L500.4050 ####[facility] [address] [place], [address] GFR/1.73 sq M.predicted among non-blacks MDRD (S/P/Bld) [Vol rate/Area] 95 mL/min/{1.73_m2} Normal >60 [facility] Comment on above: Result Comment: Non- GFR Calc Performed By: #### L 501.2450, L100.0100, L500.4050 ####[facility] [address] [place], [address] Globulin (S) [Mass/Vol] 4.0 g/dL Normal 2.2-4.2 [facility] Comment on above: Performed By: #### L 501.2450, L100.0100, L500.4050 ####[facility] [address] [place], [address] Glucose [Mass/Vol] 90 mg/dL Normal 74-106 [facility] Comment on above: Performed By: #### L 501.2450, L100.0100, L500.4050 ####[facility] [address] [place], [address] Potassium [Moles/Vol] 2.9 mmol/L Low 3.5-5.1 [facility] Comment on above: Result Comment: Slig ht Hemolysis, Result may be falsely increased. Performed By: #### L 501.2450, L100.0100, L500.4050 ####[facility] [address] [place], [address] Sodium [Moles/Vol] 135 mmol/L Low 136-145 [facility] Comment on above: Performed By: #### L 501.2450, L100.0100, L500.4050 ####[facility] [address] [place], [address] T PROT 7.8 g/dL Normal 6.4-8.2 [facility] Comment on above: Performed By: #### L 501.2450, L100.0100, L500.4050 ####[facility] [address] [place], [address] Urea nitrogen [Mass/Vol] 2 mg/dL Low 7-18 [facility] Comment on above: Performed By: #### L 501.2450, L100.0100, L500.4050 ####[facility] [address] [place], [address] Emergency Department Summary on 09-14-2024 Emergency Department Summary [facility] Medical Records Department [address] [place] [address] Emergency Department Summary 09/14/24 MR#: [id number] Acct: [id number] Name: ADDIS TORRES Rep #: [id number] : 2000 24 From: Xavier Patterson DO PCP: Care Physician,No Primary Status:REG ER Location: ED HPI History of Present Illness Chief Complaint: Abd Pain Narrative Narrative: Patient is a 24-year-old female past medical history of gastroparesis, hypertension, depression, PCOS, endometrial cancer status post hysterectomy who presented to the emergency department with a chief complaint of abdominal pain. Patient states that her abdominal pain has been going on for approximately 2 months. She states that she follows with Dr. Combs and was seen here recently. States that [facility] as she states that she had workups there and was ultimately sent home. She was advised if things worsen to go to a emergency department. Patient states that today she has had persistent vomiting and unable to keep anything down with increasing pain therefore she came here for further evaluation management. Patient states that she has never had a colonoscopy. [facility] Medical History Intractable nausea and vomiting Gastroparesis Cyclic vomiting syndrome History of alcohol abuse Ureteral stricture, left Retained ureteral stent Hypertension Depression Ureterolithiasis Ureter injury Non-smoker Endometrial cancer PCOS (polycystic ovarian syndrome) Home Medications ???Medication ???Instructions ???Recorded ???Last Taken ???Type acetaminophen 500 mg capsule 1,000 mg (2 x 500 mg) PO Q8H PRN 12/26/22 Unknown Rx PRN pain #60 caps amitriptyline 10 mg tablet 10 mg PO QHS #30 TABLETS 04/28/24 Unknown Rx pantoprazole 40 mg tablet,delayed 40 mg PO BID #60 TABLETS 04/28/24 Unknown Rx release gabapentin 100 mg capsule 200 mg (2 x 100 mg) PO TID #180 05/24/24 Unknown Rx caps sucralfate 100 mg/mL oral 10 ml PO QAC #414 mL 07/21/24 Unknown Rx suspension alprazolam 0.5 mg tablet 0.5 mg PO TID PRN abdominal pain 07/22/24 Unknown Rx #90 tabs hyoscyamine sulfate 0.125 mg 0.125 mg PO TID PRN dyspepsia #90 07/22/24 Unknown Rx disintegrating tablet tabs ondansetron 4 mg disintegrating 4 mg PO Q6H PRN nausea and 07/22/24 Unknown Rx tablet vomiting #90 tabs scopolamine base 1 mg over 3 days 1 patch transdermal Q72H #4 ea 07/22/24 Unknown Rx transdermal patch dicyclomine 20 mg tablet 20 mg PO 4X/DAY PRN abdominal pain 07/23/24 Unknown History metoclopramide HCl 5 mg tablet 5 mg PO 4X/DAY PRN nausea/vomiting 07/23/24 Unknown History hyoscyamine sulfate 0.125 mg 0.125 mg PO Q6H PRN dyspepsia #30 09/14/24 Unknown Rx tablet (Levsin) tabs metoclopramide HCl 10 mg tablet 10 mg PO Q6H PRN nausea and 09/14/24 Unknown Rx vomiting #20 tabs potassium chloride 20 mEq oral 20 meq PO BID 5 days #30 ea 09/14/24 Unknown Rx packet Allergy/AdvReac Type Severity Reaction Status Date / Time ceftriaxone (From Rocephin) Allergy Hives Verified 09/13/24 23:53 promethazine (From Phenergan) Allergy Vomiting Verified 09/13/24 23:53 Ringer's solution,lactated Allergy Hives Verified 09/13/24 23:53 Family History Father No problems noted. Mother Anxiety and depression GERD (gastroesophageal reflux disease) Surgical History History of renal stent History of hysterectomy for cancer Social History household members: family Smoking Status: Never smoker alcohol intake: former substance use type: marijuana and other details: No marijuana use in the last month ROS ROS ED ROS Narrative Constitutional: Denies any fevers, chills, headaches, lightness, dizziness Cardiovascular: Denies chest pain or palpitations Respiratory: Denies coughing wheezing shortness of breath Abdomen: Complains of abdominal pain nausea vomiting as noted above denies diarrhea : Denies any urinary symptoms Neurological: Denies numbness, wheeze, tingling Musculoskeletal: Denies back pain Skin: Denies any rashes or lesions EXAM Physical Exam Narrative Exam Narrative: General: Patient lying in bed rest comfortably did not appear to be in acute distress Head: Atraumatic, normocephalic Eyes: PERRL bilaterally, EOMI bilateral, no conjunctival injection noted Neck: Soft, supple, trachea midline Cardiovascular: Regular rate and rhythm no murmurs gallops rubs noted Respiratory: Clear to auscultation bilaterally no rales rhonchi or wheezes noted Abdomen: Soft, nondistended, diffuse tenderness to palpation no rebound or guarding (more content not included)... Normal [facility] Lipaseon 09-14-2024 Lipase [Catalytic activity/Vol] 89 U/L High 13-75 [facility] Comment on above: Result Comment: Isak medina note: LIPASE revised reference range effective 22. New Lipase methodology. Expected to produce lower values than the previous assay method. NEW Reference Range: 13 - 75 U/L Performed By: #### L 501.2450, L100.0100, L500.4050 ####[facility] [address] [place], [address] M100.678on 09-14-2024 M100.678 Pending SARS-CoV-2 (COVID 19) Negative INFLUENZA A Negative INFLUENZA B Negative RSV PCR Negative [facility] Comment on above: Performed By: #### M 100.678, L400.7600, L400.0001 ####[facility] [address] [facility], [address] ,Urineon 09-14-2024 Beta HCG ( test) Ql (U) Negative [facility] Comment on above: Order Comment: CLEAN CATCH Result Comment: Very dilute urine specimens, as indicated by a low specific gravity, may not contain lead customer service representative levels of hCG. If is still suspected, a first morning urine specimen should be collected 48 hours later and tested. Performed By: #### M 100.678, L400.7600, L400.0001 ####[facility] [address] [place], [address] Urinalysis, Completeon 09-14 EPI,SQUAMOUS 0-5 SEEN Normal 5-10 [facility] Comment on above: Order Comment: CLEAN CATCH Performed By: #### M 100.678, L400.7600, L400.0001 ####[facility] [address] [place], [address] KETONE UR 150 mg/dl Abnormal Negative [facility] Comment on above: Order Comment: CLEAN CATCH Result Comment: CRIT ICAL VALUE *H CRITICAL VALUE CALLED TO EMY MCCALL 09/14/24 0245 Vijay Delgado. RESULTS READ BACK BY SAME. Performed By: #### M 100.678, L400.7600, L400.0001 ####[facility] [address] [place], [address] BACTERIA 0 SEEN Normal None Seen [facility] Comment on above: Order Comment: CLEAN CATCH Performed By: #### M 100.678, L400.7600, L400.0001 ####[facility] [address] [place], [address] BILIRUBIN URINE Negative Normal Negative [facility] Comment on above: Order Comment: CLEAN CATCH Performed By: #### M 100.678, L400.7600, L400.0001 ####[facility] [address] [place], [address] Clarity (U) Clear Normal Clear [facility] Comment on above: Order Comment: CLEAN CATCH Performed By: #### M 100.678, L400.7600, L400.0001 ####[facility] [address] [place], [address] Color (U) Yellow Normal Yellow [facility] Comment on above: Order Comment: CLEAN CATCH Performed By: #### M 100.678, L400.7600, L400.0001 ####[facility] [address] [place], [address] GLUCOSE, UR Normal Normal Normal [facility] Comment on above: Order Comment: CLEAN CATCH Performed By: #### M 100.678, L400.7600, L400.0001 ####[facility] [address] [place], [address] LEUK ESTERASE Negative Normal Negative [facility] Comment on above: Order Comment: CLEAN CATCH Performed By: #### M 100.678, L400.7600, L400.0001 ####[facility] [address] [place], [address] Mucus Ql (Urine sed) 0 SEEN Normal [facility] Comment on above: Order Comment: CLEAN CATCH Performed By: #### M 100.678, L400.7600, L400.0001 ####[facility] [address] [place], [address] Nitrite Ql (U) Negative Normal Negative [facility] Comment on above: Order Comment: CLEAN CATCH Performed By: #### M 100.678, L400.7600, L400.0001 ####[facility] [address] [place], [address] OCCULT BLOOD-UR Negative Normal Negative [facility] Comment on above: Order Comment: CLEAN CATCH Performed By: #### M 100.678, L400.7600, L400.0001 ####[facility] [address] [place], [address] pH UR 6.0 Normal 5.0 - 8.0 [facility] Comment on above: Order Comment: CLEAN CATCH Performed By: #### M 100.678, L400.7600, L400.0001 ####[facility] [address] [place], [address] PROT DIPSTX 15 mg/dl Abnormal Negative [facility] Comment on above: Order Comment: CLEAN CATCH Performed By: #### M 100.678, L400.7600, L400.0001 ####[facility] [address] [place], [address] RBC 0 SEEN Normal 0-5 [facility] Comment on above: Order Comment: CLEAN CATCH Performed By: #### M 100.678, L400.7600, L400.0001 ####[facility] [address] [place], [address] SP.GR. DIPSTX 1.015 Normal 1.002-1.03 0 [facility] Comment on above: Order Comment: CLEAN CATCH Performed By: #### M 100.678, L400.7600, L400.0001 ####[facility] [address] [place], [address] UROBILI Normal Normal Normal [facility] Comment on above: Order Comment: CLEAN CATCH Performed By: #### M 100.678, L400.7600, L400.0001 ####[facility] [address] [place], [address] WBC 0 SEEN Normal 0-5 [facility] Comment on above: Order Comment: CLEAN CATCH Performed By: #### M 100.678, L400.7600, L400.0001 ####[facility] [address] [place], [address] Abd Inc Decub and/or Erecton 09-11-2024 Abd Inc Decub and/or Erect [facility] Imaging Services [address] [place] [address] Abd Inc Decub and/or Erect MR#: [id number] Acct: [id number] Name: ADDIS TORRES Rep #: [id number] : 2000 F 24 From: John hernandes DO PCP: Care Physician,No Primary Status: REG ER Study: Abd Inc Decub and/or Erect Date of Exam: 09/11 Exam# [id number] Ordering Dr: Patti Santos DO [id number] EXAM: XR ABDOMEN, 2 VIEWS CLINICAL INDICATION: left sided abd pain, hx of gastroparesis TECHNIQUE: Frontal view of the abdomen/pelvis with upright view of the abdomen. COMPARISON: CT abdomen and pelvis, 07/08/2021 FINDINGS: LOWER THORAX: No acute pathology. INTRAPERITONEAL SPACE: No free air. GASTROINTESTINAL TRACT: No significant abnormality. No significant gastric or bowel distention. No bowel obstruction. ORGANS: Normal as visualized. No organomegaly. No abnormal calcifications. BONES/JOINTS: Scoliotic curvature of the spine. SOFT TISSUES: Surgical clips in the right upper quadrant. RAD/Abd Inc Decub and/or Erect IMPRESSION: No significant gastric or bowel distention. No bowel obstruction. Electronically Signed: John Renee DO at 12:08 EST , CC: Dr. Patti Santos DO; No Primary Care Physician Music Education Adjunct Professor: Signed Normal [facility] CBC W/Diff, Automatedon Absolute Lymph 0.79 X10 3/uL Low 0.83-4.51 [facility] Comment on above: Performed By: #### L 700.6800, L100.0100, L500.4050 ####[facility] [address] [place], [address] Absolute Neut 5.7 X10 3/uL Normal 2.0-7.7 [facility] Comment on above: Performed By: #### L 700.6800, L100.0100, L500.4050 ####[facility] [address] [place], [address] Basophils/100 WBC (Bld) 0.4 % Normal 0-1 [facility] Comment on above: Performed By: #### L 700.6800, L100.0100, L500.4050 ####[facility] [address] [place], [address] Eosinophils/100 WBC (Bld) 1.0 % Normal 0-5 [facility] Comment on above: Performed By: #### L 700.6800, L100.0100, L500.4050 ####[facility] [address] [place], [address] Erythrocyte distribution width (RBC) [Ratio] 15.8 % High 11.6-14.6 [facility] Comment on above: Performed By: #### L 700.6800, L100.0100, L500.4050 ####[facility] [address] [place], [address] Hematocrit (Bld) [Volume fraction] 38.2 % Normal 37-47 [facility] Comment on above: Performed By: #### L 700.6800, L100.0100, L500.4050 ####[facility] [address] [place], [address] Hemoglobin (Bld) [Mass/Vol] 12.3 g/dL Normal 12.0-15.0 [facility] Comment on above: Performed By: #### L 700.6800, L100.0100, L500.4050 ####[facility] [address] [place], [address] IG% 0.400 Normal 0.0-0.9 [facility] Comment on above: Result Comment: IG% - Immature Granulocytes (promyelocytes, myelocytes and metamyelocytes) > 1% indicates that a LEFT SHIFT is Present. Performed By: #### L 700.6800, L100.0100, L500.4050 ####[facility] [address] [place], [address] Lymphocytes/100 WBC (Bld) 11.0 % Low 19-41 [facility] Comment on above: Performed By: #### L 700.6800, L100.0100, L500.4050 ####[facility] [address] [place], [address] MCH (RBC) [Entitic mass] 26.0 pg Low 27.0-32.0 [facility] Comment on above: Performed By: #### L 700.6800, L100.0100, L500.4050 ####[facility] [address] [place], [address] MCHC (RBC) [Mass/Vol] 32.2 g/dL Normal 32-36 [facility] Comment on above: Performed By: #### L 700.6800, L100.0100, L500.4050 ####[facility] [address] [place], [address] MCV (RBC) [Entitic vol] 80.8 fL Low 81-99 [facility] Comment on above: Performed By: #### L 700.6800, L100.0100, L500.4050 ####[facility] [address] [place], [address] Monocytes/100 WBC (Bld) 7.5 % Normal 0-10 [facility] Comment on above: Performed By: #### L 700.6800, L100.0100, L500.4050 ####[facility] [address] [place], [address] Neutrophils/100 WBC (Bld) 79.7 % High 47-70 [facility] Comment on above: Performed By: #### L 700.6800, L100.0100, L500.4050 ####[facility] [address] [place], [address] Nucleated RBC (Bld) [#/Vol] 0 10*3/uL Normal 0-5 [facility] Comment on above: Performed By: #### L 700.6800, L100.0100, L500.4050 ####[facility] [address] [place], [address] Platelet mean volume (Bld) [Entitic vol] 9.5 fL Normal 6.2-12.0 [facility] Comment on above: Performed By: #### L 700.6800, L100.0100, L500.4050 ####[facility] [address] [place], [address] Platelets (Bld) [#/Vol] 277 10*3/uL Normal 150-450 [facility] Comment on above: Performed By: #### L 700.6800, L100.0100, L500.4050 ####[facility] [address] [place], [address] RBC (Bld) [#/Vol] 4.73 10*6/uL Normal 4.2-5.4 [facility] Comment on above: Performed By: #### L 700.6800, L100.0100, L500.4050 ####[facility] [address] [place], [address] RDW SD 45.9 fl High 35.1-43.9 [facility] Comment on above: Performed By: #### L 700.6800, L100.0100, L500.4050 ####[facility] [address] [place], [address] WBC (Bld) [#/Vol] 7.2 10*3/uL Normal 4.4-11.0 [facility] Comment on above: Performed By: #### L 700.6800, L100.0100, L500.4050 ####[facility] [address] [place], [address] Comprehensive Metabolic Prof ilon 09-11-2024 Albumin [Mass/Vol] 4.1 g/dL Normal 3.2-5.0 [facility] Comment on above: Performed By: #### L 700.6800, L100.0100, L500.4050 ####[facility] [address] [place], [address] Albumin/Globulin [Mass ratio] 0.9 {ratio} Normal 0.9-2.4 [facility] Comment on above: Performed By: #### L 700.6800, L100.0100, L500.4050 ####[facility] [address] [place], [address] ALK P 69 U/L Normal 45-117 [facility] Comment on above: Performed By: #### L 700.6800, L100.0100, L500.4050 ####[facility] [address] [place], [address] ALT [Catalytic activity/Vol] 56 U/L Normal 13-56 [facility] Comment on above: Performed By: #### L 700.6800, L100.0100, L500.4050 ####[facility] [address] [place], [address] AST [Catalytic activity/Vol] 29 U/L Normal 15-37 [facility] Comment on above: Result Comment: Slig ht Hemolysis, Result may be falsely increased. Performed By: #### L 700.6800, L100.0100, L500.4050 ####[facility] [address] [place], [address] Bilirubin [Mass/Vol] 0.60 mg/dL Normal 0.20-1.00 [facility] Comment on above: Result Comment: For patients on eltrombopag therapy, use of Dimension [place] TBIL is not recommended. Performed By: #### L 700.6800, L100.0100, L500.4050 ####[facility] [address] [place], [address] BUN/CRE 3.1 RATIO Low 10-20 [facility] Comment on above: Performed By: #### L 700.6800, L100.0100, L500.4050 ####[facility] [address] [place], [address] CA,Total 9.5 mg/dL Normal 8.5-10.1 [facility] Comment on above: Performed By: #### L 700.6800, L100.0100, L500.4050 ####[facility] [address] [place], [address] Chloride [Moles/Vol] 99 mmol/L Normal 98-107 [facility] Comment on above: Performed By: #### L 700.6800, L100.0100, L500.4050 ####[facility] [address] [place], [address] CO2 [Moles/Vol] 20.0 mmol/L Low 21.0-32.0 [facility] Comment on above: Performed By: #### L 700.6800, L100.0100, L500.4050 ####[facility] [address] [place], [address] Creatinine [Mass/Vol] 0.64 mg/dL Normal 0.55-1.02 [facility] Comment on above: Result Comment: The validity of the calculated GFR GFRAA in patients over 70 years has not been determined. Clinical correlation is essential. Performed By: #### L 700.6800, L100.0100, L500.4050 ####[facility] [address] [place], [address] ECRCL 160.23 ml/min Normal [facility] Comment on above: Performed By: #### L 700.6800, L100.0100, L500.4050 ####[facility] [address] [place], [address] EST GFR - AA 146 mL/min Normal >60 [facility] Comment on above: Result Comment: Afri can [place] GFR Calc Performed By: #### L 700.6800, L100.0100, L500.4050 ####[facility] [address] [place], [address] GAP 15 Normal 5-15 [facility] Comment on above: Performed By: #### L 700.6800, L100.0100, L500.4050 ####[facility] [address] [place], [address] GFR/1.73 sq M.predicted among non-blacks MDRD (S/P/Bld) [Vol rate/Area] 121 mL/min/{1.73_m2} Normal >60 [facility] Comment on above: Result Comment: Non- GFR Calc Performed By: #### L 700.6800, L100.0100, L500.4050 ####[facility] [address] [place], [address] Globulin (S) [Mass/Vol] 4.4 g/dL High 2.2-4.2 [facility] Comment on above: Performed By: #### L 700.6800, L100.0100, L500.4050 ####[facility] [address] [place], [address] Glucose [Mass/Vol] 98 mg/dL Normal 74-106 [facility] Comment on above: Performed By: #### L 700.6800, L100.0100, L500.4050 ####[facility] [address] [place], [address] Potassium [Moles/Vol] 3.5 mmol/L Normal 3.5-5.1 [facility] Comment on above: Result Comment: Slig ht Hemolysis, Result may be falsely increased. Performed By: #### L 700.6800, L100.0100, L500.4050 ####[facility] [address] [place], [address] Sodium [Moles/Vol] 134 mmol/L Low 136-145 [facility] Comment on above: Performed By: #### L 700.6800, L100.0100, L500.4050 ####[facility] [address] [place], [address] T PROT 8.5 g/dL High 6.4-8.2 [facility] Comment on above: Performed By: #### L 700.6800, L100.0100, L500.4050 ####[facility] [address] [place], [address] Urea nitrogen [Mass/Vol] 2 mg/dL Low 7-18 [facility] Comment on above: Performed By: #### L 700.6800, L100.0100, L500.4050 ####[facility] [address] [place], [address] Emergency Department Summary on 09-11-2024 Emergency Department Summary [facility] Medical Records Department [address] [place] [address] Emergency Department Summary 09/11/24 MR#: [id number] Acct: [id number] Name: ADDIS TORRES Rep #: [id number] : 2000 24 From: Patti Santos DO PCP: Care Physician,No Primary Status:REG ER Location: ED HPI HPI - GI History of Present Illness Chief Complaint: Abd Pain Informant: patient Narrative Narrative: Patient is a 24-year-old female with history of send vomiting syndrome and possible gastric paresis presenting with worsening nausea, vomiting and left-sided abdominal pain. She denies any known history of inflammatory bowel disease such as ulcerative colitis or Crohn's disease. She states she has been having issues for 2 months but over the past week her symptoms have been worsening. She states she is been vomiting and she cannot keep anything down now. She is having pressure and she describes as gas pain on the left side of her abdomen. She states this radiates down into her pelvis/back. She states her mother called the nurse practitioner for GI (Dr. Combs) and she was told to come in. She does not know they said anything else. She has some slight blood streaks associated with her vomiting. Denies any diarrhea and states her bowel moods affected been regular. Denies any fevers. Is not concern for as she had a prior hysterectomy. Has not been able to keep her Reglan and Carafate down or her gabapentin. Has been abstaining from any THC products. Denies any abnormal vaginal bleeding or discharge. [facility] Medical History Intractable nausea and vomiting Gastroparesis Cyclic vomiting syndrome History of alcohol abuse Ureteral stricture, left Retained ureteral stent Hypertension Depression Ureterolithiasis Ureter injury Non-smoker Endometrial cancer PCOS (polycystic ovarian syndrome) Home Medications ???Medication ???Instructions ???Recorded ???Last Taken ???Type acetaminophen 500 mg capsule 1,000 mg (2 x 500 mg) PO Q8H PRN 12/26/22 Unknown Rx PRN pain #60 caps amitriptyline 10 mg tablet 10 mg PO QHS #30 TABLETS 04/28/24 Unknown Rx pantoprazole 40 mg tablet,delayed 40 mg PO BID #60 TABLETS 04/28/24 Unknown Rx release gabapentin 100 mg capsule 200 mg (2 x 100 mg) PO TID #180 05/24/24 Unknown Rx caps sucralfate 100 mg/mL oral 10 ml PO QAC #414 mL 07/21/24 Unknown Rx suspension alprazolam 0.5 mg tablet 0.5 mg PO TID PRN abdominal pain 07/22/24 Unknown Rx #90 tabs hyoscyamine sulfate 0.125 mg 0.125 mg PO TID PRN dyspepsia #90 07/22/24 Unknown Rx disintegrating tablet tabs ondansetron 4 mg disintegrating 4 mg PO Q6H PRN nausea and 07/22/24 Unknown Rx tablet vomiting #90 tabs scopolamine base 1 mg over 3 days 1 patch transdermal Q72H #4 ea 07/22/24 Unknown Rx transdermal patch dicyclomine 20 mg tablet 20 mg PO 4X/DAY PRN abdominal pain 07/23/24 Unknown History metoclopramide HCl 5 mg tablet 5 mg PO 4X/DAY PRN nausea/vomiting 07/23/24 Unknown History Allergy/AdvReac Type Severity Reaction Status Date / Time ceftriaxone (From Rocephin) Allergy Hives Verified 09/11/24 09:25 promethazine (From Phenergan) Allergy Vomiting Verified 09/11/24 09:25 Ringer's solution,lactated Allergy Hives Verified 09/11/24 09:25 Family History Father No problems noted. Mother Anxiety and depression GERD (gastroesophageal reflux disease) Surgical History History of renal stent History of hysterectomy for cancer Social History household members: family Smoking Status: Never smoker alcohol intake: former substance use type: marijuana and other details: No marijuana use in the last month ROS ROS ED Constitutional Constitutional ED: Denies chills or fever(s) ENT ENT ED: Denies sore throat Respiratory/Chest Respiratory/Chest: Denies cough or dyspnea Gastrointestinal Gastrointestinal: Reports abdominal pain, nausea and vomiting; Denies constipation or diarrhea Musculoskeletal Musculoskeletal: Denies arthralgias or myalgias Integumentary Denies rash EXAM Physical Exam Const Vital Signs: 09/11/24 09:25 09/11/24 11:25 09/11/24 13:00 Temperature 98.6 F 98.6 F Temperature Source Oral Temporal Pulse Rate 128 H 98 78 Respiratory Rate 20 H 14 16 Blood Pressure 146/109 H 129/78 H 136/78 H Blood Pressure Mean 121 95 97 Pulse Ox 100 98 98 Oxygen Delivery Method Room Air Room Air Room Air 09/11/24 15:00 Temperature Temperature Source Pulse Rate 88 Respiratory Rate 14 Blood Pressure 140/76 H Blood Pressure Mean 97 Pulse Ox 98 Ox (more content not included)... Normal [facility] Magnesiumon 09-11-2024 Magnesium [Mass/Vol] 2.0 mg/dL Normal 1.6-2.[address] [facility] Comment on above: Result Comment: Mode rate Hemolysis, Result may be falsely increased. Performed By: #### L 501.5200 ####[facility] [address] [place], [address] ,Serum,hCG Quali.on 09-11-2024 HCG, SERUM QUAL Negative Normal [facility] Comment on above: Performed By: #### L 700.6800, L100.0100, L500.4050 ####[facility] [address] [place], [address] Urinalysis, Completeon 09-11 BACTERIA RARE Normal None Seen [facility] Comment on above: Order Comment: CRITI AIYANA VALUE CALLED TO [id number]/05/25 1320 Patience Canas.RESULTS READ BACK BY SAME.LITHOGRAPHED PLATE INSPECTOR TO SPECIFY Performed By: #### L 400.0001 ####[facility] [address] [place], [address] EPI,SQUAMOUS 0-5 SEEN Normal 5-10 [facility] Comment on above: Order Comment: CRITI AIYANA VALUE CALLED TO [id number]/05/25 1320 Patience Canas.RESULTS READ BACK BY SAME.LITHOGRAPHED PLATE INSPECTOR TO SPECIFY Performed By: #### L 400.0001 ####[facility] [address] [place], [address] Mucus Ql (Urine sed) 0 SEEN Normal [facility] Comment on above: Order Comment: CRITI AIYANA VALUE CALLED TO [id number]/05/25 1320 Patience Canas.RESULTS READ BACK BY SAME.LITHOGRAPHED PLATE INSPECTOR TO SPECIFY Performed By: #### L 400.0001 ####[facility] [address] [place], [address] RBC 0 SEEN Normal 0-5 [facility] Comment on above: Order Comment: CRITI AIYANA VALUE CALLED TO [id number]/05/25 1320 Patience Canas.RESULTS READ BACK BY SAME.LITHOGRAPHED PLATE INSPECTOR TO SPECIFY Performed By: #### L 400.0001 ####[facility] [address] [place], [address] WBC 0 SEEN Normal 0-5 [facility] Comment on above: Order Comment: CRITI AIYANA VALUE CALLED TO [id number]/05/25 1320 Patience Canas.RESULTS READ BACK BY SAME.LITHOGRAPHED PLATE INSPECTOR TO SPECIFY Performed By: #### L 400.0001 ####[facility] [address] [place], [address] BASIC METABOLIC PANELon 01-0 -2024 Anion gap [Moles/Vol] 11 mmol/L Normal 3-13 [facility] Comment on above: Performed By: #### L AB15, LAB20, LAB99 ####[employer] Supervisor: KIMBERLY VIRGEN ([phone])[facility])[address] [place] [address] Calcium [Mass/Vol] 9.2 mg/dL Normal 8.4-10.2 [facility] Comment on above: Performed By: #### L AB15, LAB20, LAB99 ####[employer] Supervisor: KIMBERLY VIRGEN ([phone])[facility])[address] [place] [address] Chloride [Moles/Vol] 99 mmol/L Normal 98-107 [facility] Comment on above: Performed By: #### L AB15, LAB20, LAB99 ####[employer] Supervisor: KIMBERLY VIRGEN ([phone])[facility])[address] [place] [address] CO2 [Moles/Vol] 24 mmol/L Normal 22-29 [facility] Comment on above: Performed By: #### L AB15, LAB20, LAB99 ####[employer] Supervisor: KIMBERLY VIRGEN ([phone])[facility])[address] [place] [address] Creatinine [Mass/Vol] 0.67 mg/dL Normal 0.57-1.11 [facility] Comment on above: Performed By: #### L AB15, LAB20, LAB99 ####[employer] Supervisor: KIMBERLY VIRGEN ([phone])[facility])[address] [place] [address] GLOMERULAR FILTRATION RATE ML/MIN/1.73 SQ M.PREDICTED >90.0 Normal >60.0 [facility] Comment on above: Result Comment: Calc ulation based on the Chronic Kidney Disease Epidemiology Collaboration (CKD-EPI) equation refit without adjustment for race Performed By: #### Korey AB15, LAB20, LAB99 ####[employer] Supervisor: KIMBERLY VIRGEN ([phone])[facility] ([facility])[address] [place] [address] Glucose [Mass/Vol] 87 mg/dL Normal 74-100 [facility] Comment on above: Performed By: #### Korey AB15, LAB20, LAB99 ####[employer] Supervisor: KIMBERLY VIRGEN ([phone])[facility])[address] [place] [address] Potassium [Moles/Vol] 2.8 mmol/L Low 3.5-5.1 [facility] Comment on above: Result Comment: [facility] potassium values may be up to 0.5 mmol/L lower than serum values. Performed By: #### Korey AB15, LAB20, LAB99 ####[employer] Supervisor: KIMBERLY VIRGEN ([phone])[facility] ([facility])[address] [place] [address] Sodium [Moles/Vol] 134 mmol/L Low 136-145 [facility] Comment on above: Performed By: #### Korey AB15, LAB20, LAB99 ####[employer] Supervisor: KIMBERLY VIRGEN ([phone])[facility] ([facility])[address] [place] [address] [place] Urea nitrogen [Mass/Vol] 3 mg/dL Low 8-21 [facility] Comment on above: Performed By: #### Korey AB15, LAB20, LAB99 ####[employer] Supervisor: KIMBERLY VIRGEN ([phone])[facility])[address] [place] [address] [place] CBC WITH AUTO DIFFERENTIALon 09-09-2024 Basophils (Bld) [#/Vol] 0.0 10*3/uL Normal 0.0-0.2 [facility] Comment on above: Performed By: #### L [id number] ####[employer] Supervisor: KIMBERLY VIRGEN ([phone])[facility] ([facility])[address] [place] [address] Basophils/100 WBC (Bld) 0.4 % Normal 0.0-2.0 [facility] Comment on above: Performed By: #### L [id number] ####[employer] Supervisor: KIMBERLY VIRGEN ([phone])[facility])[address] [place] [address] Eosinophils (Bld) [#/Vol] 0.1 10*3/uL Normal 0.0-0.5 [facility] Comment on above: Performed By: #### L [id number] ####[employer] Supervisor: KIMBERLY VIRGEN ([phone])[facility])[address] [place] [address] Eosinophils/100 WBC (Bld) 1.0 % Normal 0.0-6.0 [facility] Comment on above: Performed By: #### L [id number] ####[employer] Supervisor: KIMBERLY VIRGEN ([phone])[facility])[address] [place] [address] Erythrocyte distribution width (RBC) [Ratio] 15.9 % High 11.5-15.0 [facility] Comment on above: Performed By: #### L [id number] ####[employer] Supervisor: KIMBERLY VIRGEN ([phone])[facility])[address] [place] [address] Hematocrit (Bld) [Volume fraction] 37.8 % Normal 35.0-47.0 [facility] Comment on above: Performed By: #### L [id number] ####[employer] Supervisor: KIMBERLY VIRGEN ([phone])[facility])[address] [place] [address] Hemoglobin (Bld) [Mass/Vol] 12.3 g/dL Normal 11.7-16.0 [facility] Comment on above: Performed By: #### L [id number] ####[employer] Supervisor: KIMBERLY VIRGEN ([phone])[address] IMMATURE GRANS % 0.3 % Normal 0.0-2.0 [facility] Comment on above: Performed By: #### L [id number] ####[employer] Supervisor: KIMBERLY VIRGEN ([phone])[facility])[address] [place] [address] IMMATURE GRANS ABSOLUTE 0.0 10*3/uL Normal <0.1 [facility] Comment on above: Performed By: #### L [id number] ####[employer] Supervisor: KIMBERLY VIRGEN ([phone])[address] Lymphocytes (Bld) [#/Vol] 1.1 10*3/uL Normal 1.0-4.3 [facility] Comment on above: Performed By: #### L [id number] ####[employer] Supervisor: KIMBERLY VIRGEN ([phone])[address] Lymphocytes/100 WBC (Bld) 16.8 % Normal 15.0-45.0 [facility] Comment on above: Performed By: #### L [id number] ####[employer] Supervisor: KIMBERLY VIRGEN ([phone])[address] MCH (RBC) [Entitic mass] 25.8 pg Low 26.0-34.0 [facility] Comment on above: Performed By: #### L [id number] ####[employer] Supervisor: KIMBERLY VIRGEN ([phone])[address] MCHC 32.5 % Normal 30.5-36.0 [facility] Comment on above: Performed By: #### L [id number] ####[employer] Supervisor: KIMBERLY VIRGEN ([phone])[facility] ([facility])[address] [place] [address] MCV (RBC) [Entitic vol] 79.4 fL Normal 77.0-99.0 [facility] Comment on above: Performed By: #### L [id number] ####[employer] Supervisor: KIMBERLY VIRGEN ([phone])[facility] ([facility])[address] [place] [address] Monocytes (Bld) [#/Vol] 0.6 10*3/uL Normal 0.0-0.9 [facility] Comment on above: Performed By: #### L [id number] ####[employer] Supervisor: KIMBERLY VIRGEN ([phone])[facility] ([facility])[address] [place] [address] Monocytes/100 WBC (Bld) 8.8 % Normal 5.0-13.0 [facility] Comment on above: Performed By: #### L [id number] ####[employer] Supervisor: KIMBERLY VIRGEN ([phone])[facility] ([facility])[address] [place] [address] NEUTROPHILS ABSOLUTE 4.9 10*3/uL Normal 1.8-7.5 [facility] Comment on above: Performed By: #### L [id number] ####[employer] Supervisor: KIMBERLY VIRGEN ([phone])[facility] ([facility])[address] [place] [address] Neutrophils/100 WBC (Bld) 72.7 % Normal 38.0-82.0 [facility] Comment on above: Performed By: #### L [id number] ####[employer] Supervisor: KIMBERLY VIRGEN ([phone])[facility] ([facility])[address] [place] [address] NRBC 0.0 /100 WBCs Normal 0.0-2.0 [facility] Comment on above: Performed By: #### L [id number] ####[employer] Supervisor: KIMBERLY VIRGEN ([phone])[facility] ([facility])[address] [place] [address] Platelet mean volume (Bld) [Entitic vol] 9.5 fL Normal 9.0-12.7 [facility] Comment on above: Performed By: #### L [id number] ####[employer] Supervisor: KIMBERLY VIRGEN ([phone])[facility] ([facility])[address] [place] [address] Platelets (Bld) [#/Vol] 279 10*3/uL Normal 140-440 [facility] Comment on above: Performed By: #### L [id number] ####[employer] Supervisor: KIMBERLY VIRGEN ([phone])[facility] ([facility])[address] [place] [address] RBC (Bld) [#/Vol] 4.76 10*6/uL Normal 3.80-5.20 [facility] Comment on above: Performed By: #### L [id number] ####[employer] Supervisor: KIMBERLY VIRGEN ([phone])[facility] ([facility])[address] [place] [address] WBC (Bld) [#/Vol] 6.7 10*3/uL Normal 3.6-10.7 [facility] Comment on above: Performed By: #### L [id number] ####[employer] Supervisor: KIMBERLY VIRGEN ([phone])[facility])[address] [place] [address] ED Provider Noteon ED Provider Note Normal [facility] HEPATIC FUNCTION PANELon Albumin [Mass/Vol] 3.9 g/dL Normal 3.5-5.0 [facility] Comment on above: Performed By: #### L AB15, LAB20, LAB99 ####[employer] Supervisor: KIMBERLY VIRGEN ([phone])[facility])[address] [place] [address] ALP [Catalytic activity/Vol] 55 U/L Normal 40-150 [facility] Comment on above: Performed By: #### L AB15, LAB20, LAB99 ####[employer] Supervisor: KIMBERLY VIRGEN ([phone])[facility])[address] [place] [address] ALT [Catalytic activity/Vol] 46 U/L High <30 [facility] Comment on above: Performed By: #### L AB15, LAB20, LAB99 ####[employer] Supervisor: KIMBERLY VIRGEN ([phone])[facility])[address] [place] [address] AST [Catalytic activity/Vol] 32 U/L Normal <34 [facility] Comment on above: Performed By: #### L AB15, LAB20, LAB99 ####[employer] Supervisor: KIMBERLY VIRGEN ([phone])[facility])[address] [place] [address] Bilirubin [Mass/Vol] 0.4 mg/dL Normal <1.2 [facility] Comment on above: Performed By: #### L AB15, LAB20, LAB99 ####[employer] Supervisor: KIMBERLY VIRGEN ([phone])[facility])[address] [place] [address] Bilirubin.indirect [Mass/Vol] 0.2 mg/dL Normal <0.5 [facility] Comment on above: Performed By: #### L AB15, LAB20, LAB99 ####[employer] Supervisor: KIMBERLY VIRGEN ([phone])[facility])[address] [place] [address] Protein [Mass/Vol] 7.3 g/dL Normal 6.4-8.3 [facility] Comment on above: Result Comment: Seru m protein values are higher than plasma values. Samples from recumbent persons are lower by up to 0.5 g/dL as compared to ambulatory persons. After 60 years values are lower by up to 0.2 g/dL. Performed By: #### L AB15, LAB20, LAB99 ####[employer] Supervisor: KIMBERLY VIRGEN ([phone])[facility])[address] [place] [address] [place] LIPASEon 09-09-2024 Lipase [Catalytic activity/Vol] 75 U/L High <55 [facility] Comment on above: Performed By: #### L AB15, LAB20, LAB99 ####[employer] Supervisor: KIMBERLY VIRGEN ([phone])[facility] ([address] .Urinalysis Microscopic (AO) on 09-08-2024 UA Bacteria 2+ /hpf Abnormal [facility] Comment on above: Performed By: #### A DIFF, CMP, GFR, CBC, ANEU, MG, MDW, LIP #### [address] [address] UA Mucous 3+ /hpf Normal [facility] Comment on above: Performed By: #### A DIFF, CMP, GFR, CBC, ANEU, MG, MDW, LIP #### [address] [address] UA RBC 0-5 Abnormal None Seen [facility] Comment on above: Performed By: #### A DIFF, CMP, GFR, CBC, ANEU, MG, MDW, LIP #### [address] [address] UA Squam Epithelial 5-10 Abnormal None Seen [facility] Comment on above: Performed By: #### A DIFF, CMP, GFR, CBC, ANEU, MG, MDW, LIP #### [address] [address] UA WBC 0-5 Abnormal None Seen [facility] Comment on above: Performed By: #### A DIFF, CMP, GFR, CBC, ANEU, MG, MDW, LIP #### [address] [address] LABORATORYOrdered By: Narciso Chowdary on 09-08-2024 Appearance (U) Clear (09/08/24 3:45 PM) Normal Clear AO Auto Urine SS Bacteria LM.HPF (Urine sed) [#/Area] 2 /[HPF] Invalid Interpretation Code AO Auto Urine SS Bilirubin Ql (U) Small *ABN* (09/08/24 3:45 PM) Invalid Interpretation Code Negative AO Auto Urine SS Color (U) Yellow (09/08/24 3:45 PM) Normal AO Auto Urine SS Glucose Test strip (U) [Mass/Vol] Negative Normal Negative AO Auto Urine SS Hemoglobin Auto test strip (U) [Mass/Vol] Negative (09/08/24 3:45 PM) Normal Negative AO Auto Urine SS Ketones Ql (U) >=160 mg/dL Invalid Interpretation Code Negative AO Auto Urine SS UA Leuk Est Negative (09/08/24 3:45 PM) Normal Negative AO Auto Urine SS UA Mucous 3+ /HPF Normal AO Auto Urine SS UA Nitrite Negative (09/08/24 3:45 PM) Normal Negative AO Auto Urine SS UA pH 6.0 (09/08/24 3:45 PM) Normal 5.0 - 8.0 AO Auto Urine SS UA Protein 100 mg/dL Invalid Interpretation Code Negative AO Auto Urine SS UA RBC 0-5 /HPF Invalid Interpretation Code None Seen AO Auto Urine SS UA Spec Grav >=1.030 *ABN* (09/08/24 3:45 PM) Invalid Interpretation Code 1.015-1.02 5 AO Auto Urine SS UA Specimen Type Void (09/08/24 3:45 PM) Normal AO Auto Urine SS UA Squam Epithelial 5-10 /HPF Invalid Interpretation Code None Seen AO Auto Urine SS UA Urobilinogen 0.2 E.U./dL Normal 0.2-1.0 AO Auto Urine SS WBC LM.HPF (Urine sed) [#/Area] 0-5 /HPF Invalid Interpretation Code None Seen AO Auto Urine SS UAon 09-08-2024 Color (U) Yellow Normal [facility] Comment on above: Performed By: #### A DIFF, CMP, GFR, CBC, ANEU, MG, MDW, LIP #### [address] [address] Glucose (U) [Mass/Vol] Negative Normal Negative [facility] Comment on above: Performed By: #### A DIFF, CMP, GFR, CBC, ANEU, MG, MDW, LIP #### [address] [address] Ketones Ql (U) >=160 Abnormal Negative [facility] Comment on above: Performed By: #### A DIFF, CMP, GFR, CBC, ANEU, MG, MDW, LIP #### [address] [address] UA Appear Clear Normal Clear [facility] Comment on above: Performed By: #### A DIFF, CMP, GFR, CBC, ANEU, MG, MDW, LIP #### [address] [address] UA Bili Small Abnormal Negative [facility] Comment on above: Performed By: #### A DIFF, CMP, GFR, CBC, ANEU, MG, MDW, LIP #### [address] [address] UA Blood Negative Normal Negative [facility] Comment on above: Performed By: #### A DIFF, CMP, GFR, CBC, ANEU, MG, MDW, LIP #### [address] [address] UA Leuk Est Negative Normal Negative [facility] Comment on above: Performed By: #### A DIFF, CMP, GFR, CBC, ANEU, MG, MDW, LIP #### [address] [address] UA Nitrite Negative Normal Negative [facility] Comment on above: Performed By: #### A DIFF, CMP, GFR, CBC, ANEU, MG, MDW, LIP #### [address] [address] UA pH 6.0 Normal 5.0 - 8.0 [facility] Comment on above: Performed By: #### A DIFF, CMP, GFR, CBC, ANEU, MG, MDW, LIP #### [address] [address] UA Protein 100 mg/dL Abnormal Negative [facility] Comment on above: Performed By: #### A DIFF, CMP, GFR, CBC, ANEU, MG, MDW, LIP #### [address] [address] UA Spec Grav >=1.030 Abnormal 1.015-1.02 5 [facility] Comment on above: Performed By: #### A DIFF, CMP, GFR, CBC, ANEU, MG, MDW, LIP #### [address] [address] UA Specimen Type Void Normal [facility] Comment on above: Performed By: #### A DIFF, CMP, GFR, CBC, ANEU, MG, MDW, LIP #### [address] [address] UA Urobilinogen 0.2 E.U./dL Normal 0.2-1.0 [facility] Comment on above: Performed By: #### A DIFF, CMP, GFR, CBC, ANEU, MG, MDW, LIP #### [address] [address] .Auto Diffon 09-07-2024 Basophil, Absolute 0.0 10 3/mcL Normal 0.0-0.3 [facility] Comment on above: Performed By: #### C BC, CMP, MDW, ANEU, ADIFF, LIP, GFR #### [address] [address] Basophils/100 WBC (Bld) 0.5 % Normal 0.0-2.5 [facility] Comment on above: Performed By: #### C BC, CMP, MDW, ANEU, ADIFF, LIP, GFR #### [address] [address] Eosinophil, Absolute 0.1 10 3/mcL Normal 0.0-0.[address] [facility] Comment on above: Performed By: #### C BC, CMP, MDW, ANEU, ADIFF, LIP, GFR #### [address] [address] Eosinophils/100 WBC (Bld) 1.2 % Normal 0.0-6.0 [facility] Comment on above: Performed By: #### C BC, CMP, MDW, ANEU, ADIFF, LIP, GFR #### [address] [address] Lymphocyte, Absolute 1.4 10 3/mcL Normal 0.9-4.[address] [facility] Comment on above: Performed By: #### C BC, CMP, MDW, ANEU, ADIFF, LIP, GFR #### [address] [address] Lymphocytes/100 WBC (Bld) 19.4 % Low 20.0-40.0 [facility] Comment on above: Performed By: #### C BC, GEORGI, JEFF, ANEU, ADIFF, LIP, GFR #### [place] [id number] [place] [address] Monocyte, Absolute 0.9 10 3/mcL Normal 0.1-1.4 [facility] Comment on above: Performed By: #### C BC, GEORGI, W, ANEU, ADIFF, LIP, GFR #### [address] [address] Monocytes/100 WBC (Bld) 11.7 % Normal 2.0-13.0 [facility] Comment on above: Performed By: #### C BC, GEORGI, JEFF, ANEU, ADIFF, LIP, GFR #### [address] [address] Neutrophils/100 WBC (Bld) 67.2 % Normal 50.0-75.0 [facility] Comment on above: Performed By: #### C TARAS, GEORGI, JEFF, ANEU, ADIFF, LIP, GFR #### [address] [address] .GFRon 09-07-2024 GFR >60 Normal [facility] Comment on above: Result Comment: GFR Population mean for , Non- Americans Ages 20-29 = 116 mL/min/1.73 sq.m. Ages 30-39 = 107 mL/min/1.73 sq.m. Ages 40-49 = 99 mL/min/1.73 sq.m. Ages 50-59 = 93 mL/min/1.73 sq.m. Ages 60-69 = 85 mL/min/1.73 sq.m. Ages 70+ = 75 mL/min/1.73 sq.m. Chronic Kidney Disease: Less than 60 mL/min/1.73 square meters End Stage Renal Disease: Less than 15 mL/min/1.73 square meters Performed By: #### C BC, GEORGI, W, ANEU, ADIFF, LIP, GFR #### [address] [address] GFR Non- >60 Normal [facility] Comment on above: Result Comment: GFR Population mean for , Non- Americans Ages 20-29 = 116 mL/min/1.73 sq.m. Ages 30-39 = 107 mL/min/1.73 sq.m. Ages 40-49 = 99 mL/min/1.73 sq.m. Ages 50-59 = 93 mL/min/1.73 sq.m. Ages 60-69 = 85 mL/min/1.73 sq.m. Ages 70+ = 75 mL/min/1.73 sq.m. Chronic Kidney Disease: Less than 60 mL/min/1.73 square meters End Stage Renal Disease: Less than 15 mL/min/1.73 square meters Performed By: #### C TARAS, GEORGI, JEFF, ANEU, ADIFF, LIP, GFR #### [place] [address] .MDWon 09-07-2024 Monocyte Distribution Width 17.56 Normal 0.00-20.00 [facility] Comment on above: Result Comment: For ED adult patients suspected of sepsis, MDW<=20.0 does not rule out sepsis or risk of sepsis Performed By: #### C TARAS, GEORGI, JEFF, ANEU, ADIFF, LIP, GFR #### [place] [address] .NEUABSon 09-07-2024 Neutrophil, Absolute 5.0 10 3/mcL Normal 2.3-8.[address] [facility] Comment on above: Performed By: #### C TARAS, GEORGI, JEFF, ANEU, ADIFF, LIP, GFR #### [address] [address] CBCon 09-07-2024 Erythrocyte distribution width (RBC) [Ratio] 16.7 % High 11.5-15.5 [facility] Comment on above: Performed By: #### C TARAS, GEORGI, MDW, ANEU, ADIFF, LIP, GFR #### [place] [address] Hematocrit (Bld) [Volume fraction] 41.6 % Normal 34.0-46.0 [facility] Comment on above: Performed By: #### C BC, CMP, MDW, ANEU, ADIFF, LIP, GFR #### [place] [address] Hgb 13.6 G/dL Normal 12.0-16.0 [facility] Comment on above: Performed By: #### C BC, CMP, MDW, ANEU, ADIFF, LIP, GFR #### [place] [address] MCH (RBC) [Entitic mass] 26.2 pg Low 27.0-33.0 [facility] Comment on above: Performed By: #### C BC, CMP, MDW, ANEU, ADIFF, LIP, GFR #### [place] [address] MCHC 32.8 G/dL Normal 32.0-36.0 [facility] Comment on above: Performed By: #### C BC, GEORGI, MDW, ANEU, ADIFF, LIP, GFR #### [place] [address] MCV (RBC) [Entitic vol] 79.9 fL Low 80.0-99.0 [facility] Comment on above: Performed By: #### C BC, GEORGI, MDW, ANEU, ADIFF, LIP, GFR #### [place] [address] Platelet 302 10 3/mcL Normal 150-450 [facility] Comment on above: Performed By: #### C BC, CMP, MDW, ANEU, ADIFF, LIP, GFR #### [place] [address] Platelet mean volume (Bld) [Entitic vol] 7.8 fL Normal 6.6-10.5 [facility] Comment on above: Performed By: #### C BC, GEORGI, MDW, ANEU, ADIFF, LIP, GFR #### [place] [address] RBC 5.20 10 6/mcL Normal 4.10-5.30 [facility] Comment on above: Performed By: #### C BC, CMP, MDW, ANEU, ADIFF, LIP, GFR #### [address] [address] WBC 7.5 10 3/mcL Normal 4.5-10.8 [facility] Comment on above: Performed By: #### C BC, GEORGI, MDW, ANEU, ADIFF, LIP, GFR #### [place] [id number] CMPon 09-07-2024 Albumin Level 4.4 G/dL Normal 3.2-4.8 [facility] Comment on above: Performed By: #### C BC, GEORGI, W, ANEU, ADIFF, LIP, GFR #### [place] [address] Albumin/Globulin [Mass ratio] 1.0 {ratio} Normal 0.9-1.6 [facility] Comment on above: Performed By: #### C BC, GEORGI, W, ANEU, ADIFF, LIP, GFR #### [place] [address] ALP [Catalytic activity/Vol] 71 U/L Normal 38-126 [facility] Comment on above: Performed By: #### C BC, GEORGI, W, ANEU, ADIFF, LIP, GFR #### [place] [address] ALT [Catalytic activity/Vol] 38 U/L Normal 10-49 [facility] Comment on above: Performed By: #### C BC, GEORGI, W, ANEU, ADIFF, LIP, GFR #### [place] [id number] AST [Catalytic activity/Vol] 22 U/L Normal 8-34 [facility] Comment on above: Performed By: #### C BC, GEORGI, MDW, ANEU, ADIFF, LIP, GFR #### [place] [address] Bili Total 0.50 mg/dL Normal 0.20-1.20 [facility] Comment on above: Result Comment: Use of this assay is not recommended for patients undergoing treatment with eltrombopag due to the potential for falsely elevated results. Performed By: #### C BC, GEORGI, W, ANEU, ADIFF, LIP, GFR #### [address] [address] BUN/Creatinine Ratio 13.8 ratio Normal 10.0-22.0 [facility] Comment on above: Performed By: #### C BC, GEORGI, W, ANEU, ADIFF, LIP, GFR #### [address] [address] Calcium [Mass/Vol] 10.4 mg/dL Normal 8.7-10.4 [facility] Comment on above: Performed By: #### C BC, CMP, MDW, ANEU, ADIFF, LIP, GFR #### [place] [id number] Chloride [Moles/Vol] 97 mmol/L Low 98-110 [facility] Comment on above: Performed By: #### C BC, GEORGI, MDW, ANEU, ADIFF, LIP, GFR #### [place] [id number] CO2 [Moles/Vol] 23 mmol/L Normal 22-32 [facility] Comment on above: Performed By: #### C BC, GEORGI, W, ANEU, ADIFF, LIP, GFR #### [place] [phone] Creatinine [Mass/Vol] 0.58 mg/dL Normal 0.50-1.20 [facility] Comment on above: Result Comment: Test ing performed on [employer] analyzer using enzymatic creatinine methodology. Performed By: #### C BC, CMP, MDW, ANEU, ADIFF, LIP, GFR #### [address] [address] Electrolyte Balance 16.0 mEq/L High 4.0-15.0 [facility] Comment on above: Performed By: #### C BC, CMP, MDW, ANEU, ADIFF, LIP, GFR #### [address] [address] Globulin 4.2 G/dL High 1.5-3.8 [facility] Comment on above: Performed By: #### C BC, GEORGI, W, ANEU, ADIFF, LIP, GFR #### [address] [address] Glucose [Mass/Vol] 94 mg/dL Normal 70-110 [facility] Comment on above: Performed By: #### C BC, CMP, MDW, ANEU, ADIFF, LIP, GFR #### [address] [address] Potassium [Moles/Vol] 3.1 mmol/L Low 3.5-5.0 [facility] Comment on above: Performed By: #### C BC, CMP, MDW, ANEU, ADIFF, LIP, GFR #### [address] [address] Sodium [Moles/Vol] 136 mmol/L Normal 136-145 [facility] Comment on above: Performed By: #### C BC, CMP, MDW, ANEU, ADIFF, LIP, GFR #### [place] [phone] Total Protein 8.6 G/dL High 5.7-8.2 [facility] Comment on above: Performed By: #### C BC, CMP, MDW, ANEU, ADIFF, LIP, GFR #### [address] [address] Urea nitrogen [Mass/Vol] 8.0 mg/dL Normal 8.0-22.0 [facility] Comment on above: Performed By: #### C BC, CMP, MDW, ANEU, ADIFF, LIP, GFR #### [address] [address] [address] ABD/PELVIS W/ IV CONTRAST ONLYon 09-07-2024 CT ABD/PELVIS W/ IV CONTRAST ONLY ORIGINAL EXAMINATION: CT OF THE ABDOMEN AND PELVIS WITH CONTRAST09/07/2024 5:45 pm TECHNIQUE: CT of the abdomen and pelvis was performed with the administration of intravenous contrast. Multiplanar reformatted images are provided for review. Automated exposure control, iterative reconstruction, and/or weight based adjustment of the mA/kV was utilized to reduce the radiation dose to as low as reasonably achievable. COMPARISON: 07/26/2024 HISTORY: ORDERING SYSTEM PROVIDED HISTORY: Reason for Exam: LLQ ABD PAIN, N/V X 2 MONTHS. HX UTERINE CA 2020. abdominal pain FINDINGS: The visualized lower thoracic structures are unremarkable. No acute osseous or soft tissue abnormality. The liver is unremarkable in size, contour, and attenuation. There is no intra or extrahepatic biliary duct dilation. No focal mass identified. Prior cholecystectomy. The pancreas, spleen, and adrenal glands are unremarkable. The kidneys enhance symmetrically without evidence of hydronephrosis or mass. Contrast is present in the bilateral renal collecting systems, ureters, and urinary bladder. The ureters are normal course and caliber. There is no evidence of urolithiasis. The visualized esophagus, stomach, and duodenum are unremarkable. The visualized aorta is nonaneurysmal. The GI tract exhibits no acute abnormalities. Unremarkable appendix. No pathologically enlarged retroperitoneal, mesenteric, or pelvic lymph nodes are identified. There is no free intraperitoneal air or fluid. The urinary bladder is well-distended without wall thickening or focal mass. The uterus is surgically absent. The bilateral ovaries appear unchanged. IMPRESSION: No acute process within the abdomen or pelvis. I have personally reviewed the images of this examination and agree with the resident's findings and interpretation. Interpreted by: Pola Prado Preliminary Report By: Ernie Villarreal Electronically signed By Pola Prado Dictated Date: 09/07/2024 5:47:53 PM Prelim Date: 09/07/2024 5:55:19 PM Sign Date: 09/07/2024 6:46:15 PM Ordering Provider: LIZABETHJEZ MARTINEZ [facility] MAIN CT HEAD OR BRAIN W/O CONTRAS Ton 09-07-2024 CT HEAD OR BRAIN W/O CONTRAST ORIGINAL EXAMINATION: CT OF THE HEAD WITHOUT CONTRAST 09/07/2024 5:46 pm TECHNIQUE: CT of the head was performed without the administration of intravenous contrast. Automated exposure control, iterative reconstruction, and/or weight based adjustment of the mA/kV was utilized to reduce the radiation dose to as low as reasonably achievable. COMPARISON: CT head without contrast 03/20/2021 HISTORY: ORDERING SYSTEM PROVIDED HISTORY: Reason for Exam: EDWARDS, DIZZINESS, BLURRED VISION TODAY. NO NEURO HX. HX UTERINE CA 2020. pain FINDINGS: BRAIN/VENTRICLES: There is no acute intracranial hemorrhage, mass effect or midline shift. No abnormal extra-axial fluid collection. The smith-white differentiation is maintained without evidence of an acute infarct. There is no evidence of hydrocephalus. ORBITS: The visualized portion of the orbits demonstrate no acute abnormality. SINUSES: The visualized paranasal sinuses and mastoid air cells demonstrate no acute abnormality. SOFT TISSUES/SKULL: No acute abnormality of the visualized skull or soft tissues. IMPRESSION: No acute intracranial abnormality. Interpreted by: Pola Prado Preliminary Report By: Pola Prado Electronically signed By Pola Prado Dictated Date: 09/07/2024 5:52:11 PM Prelim Date: 09/07/2024 5:53:33 PM Sign Date: 09/07/2024 5:53:33 PM Ordering Provider: MARYANA SALDIVAR [facility] MAIN LABORATORYOrdered By: Narciso Gunderson on 09-07-2024 Appearance (U) Clear (09/07/24 7:47 PM) Normal Clear AH Auto Urine SS Bilirubin Ql (U) Negative (09/07/24 7:47 PM) Normal Neg-Trace AH Auto Urine SS Color (U) Yellow (09/07/24 7:47 PM) Normal AH Auto Urine SS Glucose Test strip (U) [Mass/Vol] Negative Normal Negative AH Auto Urine SS Hemoglobin Auto test strip (U) [Mass/Vol] Negative (09/07/24 7:47 PM) Normal Neg-Trace AH Auto Urine SS Ketones Ql (U) >=160 mg/dL Invalid Interpretation Code Neg-Trace AH Auto Urine SS UA Leuk Est Negative (09/07/24 7:47 PM) Normal Negative AH Auto Urine SS UA Nitrite Negative (09/07/24 7:47 PM) Normal Negative AH Auto Urine SS UA pH 5.5 (09/07/24 7:47 PM) Normal 5.0 - 8.0 AH Auto Urine SS UA Protein 30 mg/dL Normal Negative AH Auto Urine SS UA Spec Grav >=1.030 *ABN* (09/07/24 7:47 PM) Invalid Interpretation Code 1.006-1.02 9 AH Auto Urine SS UA Specimen Type Clean Catch (09/07/24 7:47 PM) Normal AH Auto Urine SS UA Urobilinogen 1.0 E.U./dL Normal 0.2-1.0 AH Auto Urine SS LABORATORYOrdered By: SYSTEM SYSTEM on 09-07-2024 Magnesium [Mass/Vol] 2.0 mg/dL Normal 1.6 - 2 .4 mg/dL ADM SS Troponin I.cardiac DL <= 0.01 ng/mL [Mass/Vol] ng/L Normal 0 - 34 ng/L ADM SS Comment on above: Interpretive Data: High Sensitive Troponin I Reference Ranges: Female: 0-34 ng/L Male: 0-54 ng/L Testing performed on [employer] IM analyzer using direct chemiluminescent technology. Albumin BCP dye [Mass/Vol] 4.4 G/dL Normal 3.2 - 4.8 G/dL ADM SS Albumin/Globulin [Mass ratio] 1.0 {ratio} Normal 0.9 - 1.6 ratio AH ADM SS ALP [Catalytic activity/Vol] 71 U/L Normal 38 - 126 U/L ADM SS ALT No additional P-5'-P [Catalytic activity/Vol] 38 U/L Normal 10 - 49 U/L AH ADM SS AST [Catalytic activity/Vol] 22 U/L Normal 8 - 34 U/L ADM SS Basophils (Bld) [#/Vol] 0.0 103/mcL Normal 0.0 - 0.3 10^3/mcL Workflow SS Basophils/100 WBC (Bld) 0.5 % Normal 0.0 - 2.5 % Workflow SS Bilirubin [Mass/Vol] 0.50 mg/dL Normal 0.20 - 1.20 mg/dL ADM SS Comment on above: Interpretive Data: U se of this assay is not recommended for patients undergoing treatment with eltrombopag due to the potential for falsely elevated results. Calcium [Mass/Vol] 10.4 mg/dL Normal 8.7 - 10. 4 mg/dL ADM SS Chloride [Moles/Vol] 97 mmol/L Low 98 - 11 0 mEq/L ADM SS CO2 [Moles/Vol] 23 mmol/L Normal 22 - 32 mEq/L ADM SS Creatinine [Mass/Vol] 0.58 mg/dL Normal 0.50 - 1.20 mg/dL ADM SS Comment on above: Interpretive Data: T esting performed on [employer] CH analyzer using enzymatic creatinine methodology. Electrolyte Balance 16.0 mEq/L High 4.0 - 15 .0 mEq/L ADM SS Eosinophils (Bld) [#/Vol] 0.1 103/mcL Normal 0.0 - 0.7 10^3/mcL Workflow SS Eosinophils/100 WBC (Bld) 1.2 % Normal 0.0 - 6.0 % Workflow SS Erythrocyte distribution width (RBC) [Ratio] 16.7 % High 11.5 - 15.5 % Workflow SS GFR/1.73 sq M.predicted among blacks MDRD (S/P/Bld) [Vol rate/Area] ml/min/1.73sqm Invalid Interpretation Code [facility] Comment on above: Interpretive Data: GFR Population mean for , Non- Americans Ages 20-29 = 116 mL/min/1.73 sq.m. Ages 30-39 = 107 mL/min/1.73 sq.m. Ages 40-49 = 99 mL/min/1.73 sq.m. Ages 50-59 = 93 mL/min/1.73 sq.m. Ages 60-69 = 85 mL/min/1.73 sq.m. Ages 70+ = 75 mL/min/1.73 sq.m. Chronic Kidney Disease: Less than 60 mL/min/1.73 square meters End Stage Renal Disease: Less than 15 mL/min/1.73 square meters GFR/1.73 sq M.predicted among non-blacks MDRD (S/P/Bld) [Vol rate/Area] ml/min/1.73sqm Invalid Interpretation Code [facility] Comment on above: Interpretive Data: GFR Population mean for , Non- Americans Ages 20-29 = 116 mL/min/1.73 sq.m. Ages 30-39 = 107 mL/min/1.73 sq.m. Ages 40-49 = 99 mL/min/1.73 sq.m. Ages 50-59 = 93 mL/min/1.73 sq.m. Ages 60-69 = 85 mL/min/1.73 sq.m. Ages 70+ = 75 mL/min/1.73 sq.m. Chronic Kidney Disease: Less than 60 mL/min/1.73 square meters End Stage Renal Disease: Less than 15 mL/min/1.73 square meters Globulin 4.2 G/dL High 1.5 - 3.8 G/dL ADM Glucose [Mass/Vol] 94 mg/dL Normal 70 - 110 mg/dL ADM Hematocrit (Bld) [Volume fraction] 41.6 % Normal 34.0 - 46.0 % AH Workflow SS Hemoglobin (Bld) [Mass/Vol] 13.6 G/dL Normal 12.0 - 16.0 G/dL AH Workflow SS Lipase [Catalytic activity/Vol] 112 U/L High 12 - 53 U/L AH ADM SS Comment on above: Interpretive Data: * *Note - New Reference Range in effect 20 Lymphocytes (Bld) [#/Vol] 1.4 103/mcL Normal 0.9 - 4.3 10^3/mcL AH Workflow SS Lymphocytes/100 WBC (Bld) 19.4 % Low 20.0 - 40.0 % AH Workflow SS MCH (RBC) [Entitic mass] 26.2 pg Low 27. 0 - 33.0 pg AH Workflow SS MCHC 32.8 G/dL Normal 32.0 - 36.0 G/dL AH Workflow SS MCV (RBC) [Entitic vol] 79.9 fL Low 80.0 - 99.0 fL AH Workflow SS Monocyte distribution width Auto (Bld) [Entitic vol] 17.56 1 Normal 0.00 - 20.00 AH Workflow SS Comment on above: Result Comment: For ED adult patients suspected of sepsis, MDW<=20.0 does not rule out sepsis or risk of sepsis Monocytes (Bld) [#/Vol] 0.9 103/mcL Normal 0.1 - 1.4 10^3/mcL AH Workflow SS Monocytes/100 WBC (Bld) 11.7 % Normal 2.0 - 13.0 % AH Workflow SS Neutrophils (Bld) [#/Vol] 5.0 103/mcL Normal 2.3 - 8.1 10^3/mcL AH Workflow SS Neutrophils/100 WBC (Bld) 67.2 % Normal 50.0 - 75.0 % AH Workflow SS Platelet mean volume (Bld) [Entitic vol] 7.8 fL Normal 6.6 - 10.5 fL AH Workflow SS Platelets (Bld) [#/Vol] 302 103/mcL Normal 150 - 450 10^3/mcL AH Workflow SS Potassium [Moles/Vol] 3.1 mmol/L Low 3.5 - 5.0 mEq/L AH ADM SS Protein [Mass/Vol] 8.6 G/dL High 5.7 - 8.2 G/dL AH ADM SS RBC (Bld) [#/Vol] 5.20 106/mcL Normal 4.10 - 5.30 10^6/mcL AH Workflow SS Sodium [Moles/Vol] 136 mmol/L Normal 136 - 145 mEq/L AH ADM SS Urea nitrogen [Mass/Vol] 8.0 mg/dL Normal 8.0 - 22.0 mg/dL AH ADM SS Urea nitrogen/Creatinine [Mass ratio] 13.8 ratio Normal 10.0 - 22.0 ratio AH ADM SS WBC (Bld) [#/Vol] 7.5 103/mcL Normal 4.5 - 10.8 10^3/mcL AH Workflow SS LIPon 09-07-2024 Lipase Level 112 U/L High 12-53 [facility] Comment on above: Result Comment: No te - New Reference Range in effect 20 Performed By: #### C BC, CMP, MDW, ANEU, ADIFF, LIP, GFR #### [place] [address] MGon 09-07-2024 Magnesium [Mass/Vol] 2.0 mg/dL Normal 1.6-2.4 [facility] Comment on above: Performed By: #### T MG JEVON ####[place] [address] TROPHSon 09-07-2024 High Sensitivity Troponin I <3 Normal 0-34 [facility] Comment on above: Result Comment: High Sensitive Troponin I Reference Ranges: Female: 0-34 ng/L Male: 0-54 ng/L Testing performed on [email or web address] analyzer using direct chemiluminescent technology. Performed By: #### T MG JEVON ####[place] [address] UAon 09-07-2024 Color (U) Yellow Normal [facility] Comment on above: Performed By: #### U A #### [place] [address] Glucose (U) [Mass/Vol] Negative Normal Negative [facility] Comment on above: Performed By: #### U A #### [place] [id number] Ketones Ql (U) >=160 Abnormal Neg-Trace [facility] Comment on above: Performed By: #### U A #### [place] [address] UA Appear Clear Normal Clear [facility] Comment on above: Performed By: #### U A #### [place] [address] UA Blood Negative Normal Neg-Trace [facility] Comment on above: Performed By: #### U A #### [place] [address] UA Leuk Est Negative Normal Negative [facility] Comment on above: Performed By: #### U A #### [place] [address] UA Nitrite Negative Normal Negative [facility] Comment on above: Performed By: #### U A #### [place] [address] UA pH 5.5 Normal 5.0 - 8.0 [facility] Comment on above: Performed By: #### U A #### [place] [address] UA Protein 30 mg/dL Normal Negative [facility] Comment on above: Performed By: #### U A #### [place] [address] UA Spec Grav >=1.030 Abnormal 1.006-1.02 9 [facility] Comment on above: Performed By: #### U A #### [place] [address] UA Specimen Type Clean Catch Normal [facility] Comment on above: Performed By: #### U A #### [place] [address] UA Urobilinogen 1.0 E.U./dL Normal 0.2-1.0 [facility] Comment on above: Performed By: #### U A #### [place] [address] Urobilinogen (U) [Mass/Vol] Negative Normal Neg-Trace [facility] Comment on above: Performed By: #### U A #### [place] [address] US PELVIS NON-OB COMPLETEon 09-07-2024 US PELVIS NON-OB COMPLETE ORIGINAL EXAMINATION: PELVIC ULTRASOUND 09/07/2024 TECHNIQUE: Transabdominal pelvic ultrasound was performed. COMPARISON: CT abdomen-pelvis 09/07/2024, 07/26/2024 HISTORY: ORDERING SYSTEM PROVIDED HISTORY: Reason for Exam: pain; suspect ovarian torsion or tubo-ovarian abscess FINDINGS: Measurements: Uterus: Prior hysterectomy noted. Endometrial stripe: Not measured. Right Ovary:Measures 3.1 x 2.8 x 3.7 cm. Right ovarian volume is 17 cc. Left Ovary: Measures 3.2 x 2.2 x 3.2 cm. Left ovarian volume is 12 cc. Ultrasound Findings: Uterus: Prior hysterectomy noted. There is no gross mass or fluid collection at uterine fossa. Right Ovary: Right ovary is within normal limits. There is normal arterial and venous Doppler flow. Left Ovary: Left ovary is within normal limits. There is normal arterial and venous Doppler flow. There are no gross adnexal masses or fluid collections. Free Fluid: No evidence of free fluid. IMPRESSION: Prior hysterectomy with no gross mass or fluid collection at the uterine fossa. There is no evidence of ovarian torsion. There are no gross adnexal masses or fluid collections. Interpreted by: Archie Aguiar Preliminary Report By: Archie Aguiar Electronically signed By Archie Aguiar Dictated Date: 09/07/2024 6:04:30 PM Prelim Date: 09/07/2024 6:10:04 PM Sign Date: 09/07/2024 6:10:04 PM Ordering Provider: MARYANA SALDIVAR [facility] MAIN XR CHEST 1 VIEWon 09-07-2024 XR CHEST 1 VIEW ORIGINAL EXAMINATION: ONE XRAY VIEW OF THE CHEST09/07/2024 4:51 pm COMPARISON: None HISTORY: ORDERING SYSTEM PROVIDED HISTORY: Reason for Exam: tachycardia FINDINGS: Cardiomediastinal contours are within normal limits. No focal consolidation or pulmonary edema. No pleural effusion or visible pneumothorax. The bony thorax appears intact. IMPRESSION: No acute radiographic findings. I have personally reviewed the images of this examination and agree with the resident's findings and interpretation. Interpreted by: Pola Prado Preliminary Report By: Ernie Villarreal Electronically signed By Pola Prado Dictated Date: 09/07/2024 4:56:12 PM Prelim Date: 09/07/2024 4:57:03 PM Sign Date: 09/07/2024 5:05:14 PM Ordering Provider: MARYANA SALDIVAR [facility] MAIN CASE MANAGEMon 09-05-2024 CASE MANAGEM Normal [facility] CNDSon 09-05-2024 CNDS Normal [facility] CONSULTon 09-05-2024 CONSULT Normal [facility] CONSULT PROGon 09-05-2024 CONSULT PROG Normal [facility] CONSULT PROG Normal [facility] Magnesium SerPl-mCncon 09-05 Magnesium [Mass/Vol] 2.4 mg/dL High 1.7-2.3 [facility] Comment on above: Order Comment: Speci men Type: BLOOD SPECIMENOrdering Facility: [facility] Address: [address] [place] [address] Performed By: #### 2 4362-6, ####[facility] LABCLIA [id number] [place] [address] [place] Renal function 2000 panelon 09-05-2024 Albumin [Mass/Vol] 4.1 g/dL Normal 3.9-4.9 [facility] Comment on above: Order Comment: Speci men Type: BLOOD SPECIMENOrdering Facility: [facility] Address: [address] [place] [address] Performed By: #### 2 4362-6, ####[facility] LABCLIA [id number] [place] [address] [place] Anion gap [Moles/Vol] 19 mmol/L High 8-15 [facility] Comment on above: Order Comment: Speci men Type: BLOOD SPECIMENOrdering Facility: [facility] Address: [address] [place] [address] Performed By: #### 2 4362-6, ####[facility] LABCLIA [id number] [place] [address] [place] Calcium [Mass/Vol] 9.7 mg/dL Normal 8.5-10.2 [facility] Comment on above: Order Comment: Speci men Type: BLOOD SPECIMENOrdering Facility: [facility] Address: [address] [place] [address] Performed By: #### 2 4362-6, ####[facility] LABCLIA [id number] [facility] [place] [address] [place] Chloride [Moles/Vol] 95 mmol/L Low 98-107 [facility] Comment on above: Order Comment: Speci men Type: BLOOD SPECIMENOrdering Facility: [facility] Address: [address] [place] [address] Performed By: #### 2 4362-6, ####[facility] LABCL[facility] [id number] [place] [address] [place] CO2 [Moles/Vol] 20 mmol/L Low 22-30 [facility] Comment on above: Order Comment: Speci men Type: BLOOD SPECIMENOrdering Facility: [facility] Address: [address] [place] [address] Performed By: #### 2 4362-6, ####[facility] LABCLIA [id number] [place] [address] [place] Creatinine [Mass/Vol] 0.66 mg/dL Normal 0.58-0.96 [facility] Comment on above: Order Comment: Speci men Type: BLOOD SPECIMENOrdering Facility: [facility] Address: [address] [place] [address] Performed By: #### 2 4362-6, ####[facility] LABCL[facility] [id number] [place] [address] [place] Creatinine and Glomerular filtration rate.predicted panel (S/P/Bld) 126 mL/min/1.73m??? Normal >=60 [facility] Comment on above: Order Comment: Speci men Type: BLOOD SPECIMENOrdering Facility: [facility] Address: [address] [id number] Result Comment: Cinthya mated Glomerular Filtration Rate (eGFR) is calculated using the 2020 CKD-EPI creatinine equation. This equation utilizes serum creatinine, sex, and age as parameters. The creatinine assay has traceable calibration to isotope dilution-mass spectrometry. Refer to KDIGO guidelines for clinical interpretation. In patients with unstable renal function, e.g. those with acute kidney injury, the eGFR may not accurately reflect actual GFR. Performed By: #### 2 4362-6, ####[facility] LABIA [id number] [place] [address] [place] Glucose [Mass/Vol] 84 mg/dL Normal 74-99 [facility] Comment on above: Order Comment: Alex mcgovern Type: BLOOD SPECIMENOrdering Facility: [facility] Address: [address] [place] [address] Result Comment: The [place] Diabetes [employer] (ADA) provides guidance for cutoff values for fasting glucose and random glucose. The ADA defines fasting as no caloric intake for at least 8 hours. Fasting plasma glucose results between 100 to 125 mg/dL indicate increased risk for diabetes (prediabetes).Fasting plasma glucose results greater than or equal to 126 mg/dL meet the criteria for diagnosis of diabetes. In the absence of unequivocal hyperglycemia, results should be confirmed by repeat testing. In a patient with classic symptoms of hyperglycemia or hyperglycemic crisis, random plasma glucose results greater than or equal to 200 mg/dL meet the criteria for diagnosis of diabetes.Reference: Standards of Medical Care in Diabetes 2016, [place] [employer]. Diabetes Care. 2016.39(Suppl 1). Performed By: #### 2 4362-6, ####[facility] [id number] [place] [id number] [place] Phosphate [Mass/Vol] 3.9 mg/dL Normal 2.7-4.8 [facility] Comment on above: Order Comment: Alex mcgovern Type: BLOOD SPECIMENOrdering Facility: [facility] Address: [address] [id number] Performed By: #### 2 4362-6, ####[facility] LABCLIA [id number] [address] [address] [place] Potassium [Moles/Vol] 3.7 mmol/L Normal 3.7-5.1 [facility] Comment on above: Order Comment: Speci men Type: BLOOD SPECIMENOrdering Facility: [facility] Address: [address] [place], [place] [address] Performed By: #### 2 4362-6, ####[facility] LABCLIA [id number] [place] [address] [place] Sodium [Moles/Vol] 134 mmol/L Low 136-144 [facility] Comment on above: Order Comment: Speci men Type: BLOOD SPECIMENOrdering Facility: [facility] Address: [address] [place] [address] Performed By: #### 2 4362-6, ####[facility] LABCLIA [id number] [place] [address] [place] Urea nitrogen [Mass/Vol] 6 mg/dL Low 7-21 [facility] Comment on above: Order Comment: Speci men Type: BLOOD SPECIMENOrdering Facility: [facility] Address: [address] [place], [place] [address] Performed By: #### 2 4362-6, ####[facility] LABCLIA [id number] [place] [id number] [place] US ARM VEIN DVT UNL VAS LABo n 09-05-2024 US ARM VEIN DVT UNL VAS LAB Normal [facility] ALLIED HEALTHon 09-04-2024 ALLIED HEALTH Normal [facility] ALLIED HEALTHon 09-03-2024 ALLIED HEALTH Normal [facility] Magnesium SerPl-mCncon 09-03 Magnesium [Mass/Vol] 2.2 mg/dL Normal 1.7-2.3 [facility] Comment on above: Order Comment: Speci men Type: BLOOD SPECIMENOrdering Facility: [facility] Address: [address] [place] [address] Performed By: #### 1 9123-9, 46837-2 ####[facility] LABCLIA [id number] [address] [address] [place] Renal function 2000 panelon 09-03-2024 Albumin [Mass/Vol] 4.1 g/dL Normal 3.9-4.9 [facility] Comment on above: Order Comment: Speci men Type: BLOOD SPECIMENOrdering Facility: [facility] Address: [address] [place] [address] Performed By: #### 1 9123-9, 10450-7 ####[facility] LABCLIA [id number] [place] [address] [place] Anion gap [Moles/Vol] 20 mmol/L High 8-15 [facility] Comment on above: Order Comment: Speci men Type: BLOOD SPECIMENOrdering Facility: [facility] Address: [address] [place] [address] Performed By: #### 1 9123-9, 93795-3 ####[facility] LABCL[facility] [id number] [place] [address] [place] Calcium [Mass/Vol] 9.7 mg/dL Normal 8.5-10.2 [facility] Comment on above: Order Comment: Speci men Type: BLOOD SPECIMENOrdering Facility: [facility] Address: [address] [place] [address] Performed By: #### 1 9123-9, 86498-3 ####[facility] LABCLIA [id number] [place] [address] [place] Chloride [Moles/Vol] 96 mmol/L Low 98-107 [facility] Comment on above: Order Comment: Speci men Type: BLOOD SPECIMENOrdering Facility: [facility] Address: [address] [place] [address] Performed By: #### 1 9123-9, 98837-5 ####[facility] LABIA [id number] [place] [address] [place] CO2 [Moles/Vol] 18 mmol/L Low 22-30 [facility] Comment on above: Order Comment: Speci men Type: BLOOD SPECIMENOrdering Facility: [facility] Address: [address] [place] [address] Performed By: #### 1 9123-9, 53165-9 ####[facility] LABIA [id number] [place] [address] [place] Creatinine [Mass/Vol] 0.64 mg/dL Normal 0.58-0.96 [facility] Comment on above: Order Comment: Speci men Type: BLOOD SPECIMENOrdering Facility: [facility] Address: [address] [place] [address] Performed By: #### 1 9123-9, 24674-9 ####[facility] LABIA [id number] [place] [address] [place] Creatinine and Glomerular filtration rate.predicted panel (S/P/Bld) 127 mL/min/1.73m??? Normal >=60 [facility] Comment on above: Order Comment: Speci men Type: BLOOD SPECIMENOrdering Facility: [facility] Address: [address] [place] [address] Result Comment: Cinthya mated Glomerular Filtration Rate (eGFR) is calculated using the 2020 CKD-EPI creatinine equation. This equation utilizes serum creatinine, sex, and age as parameters. The creatinine assay has traceable calibration to isotope dilution-mass spectrometry. Refer to KDIGO guidelines for clinical interpretation. In patients with unstable renal function, e.g. those with acute kidney injury, the eGFR may not accurately reflect actual GFR. Performed By: #### 1 9123-9, 48508-8 ####[facility] LABIA [id number] [place] [address] [place] Glucose [Mass/Vol] 72 mg/dL Low 74-99 [facility] Comment on above: Order Comment: Speci men Type: BLOOD SPECIMENOrdering Facility: [facility] Address: [address] [place] [address] Result Comment: The [place] Diabetes [employer] (ADA) provides guidance for cutoff values for fasting glucose and random glucose. The ADA defines fasting as no caloric intake for at least 8 hours. Fasting plasma glucose results between 100 to 125 mg/dL indicate increased risk for diabetes (prediabetes).Fasting plasma glucose results greater than or equal to 126 mg/dL meet the criteria for diagnosis of diabetes. In the absence of unequivocal hyperglycemia, results should be confirmed by repeat testing. In a patient with classic symptoms of hyperglycemia or hyperglycemic crisis, random plasma glucose results greater than or equal to 200 mg/dL meet the criteria for diagnosis of diabetes.Reference: Standards of Medical Care in Diabetes 2016, [place] [employer]. Diabetes Care. 2016.39(Suppl 1). Performed By: #### 1 9123-9, 53015-4 ####[facility] LABIA [id number] [place] [address] [place] Phosphate [Mass/Vol] 4.2 mg/dL Normal 2.7-4.8 [facility] Comment on above: Order Comment: Speci men Type: BLOOD SPECIMENOrdering Facility: [facility] Address: [address] [place] [address] Performed By: #### 1 9123-9, 31482-3 ####[facility] LABIA [id number] [place] [address] [place] Potassium [Moles/Vol] 4.0 mmol/L Normal 3.7-5.1 [facility] Comment on above: Order Comment: Speci men Type: BLOOD SPECIMENOrdering Facility: [facility] Address: [address] [place] [address] Performed By: #### 1 9123-9, 71355-9 ####[facility] LABCLIA [id number] [place] [id number] [place] Sodium [Moles/Vol] 134 mmol/L Low 136-144 [facility] Comment on above: Order Comment: Speci men Type: BLOOD SPECIMENOrdering Facility: [facility] Address: [address] [place] [address] Performed By: #### 1 9123-9, 18047-4 ####[facility] LABCLIA [id number] [place] [address] [place] Urea nitrogen [Mass/Vol] 6 mg/dL Low 7-21 [facility] Comment on above: Order Comment: Speci men Type: BLOOD SPECIMENOrdering Facility: [facility] Address: [address] [place] [address] Performed By: #### 1 9123-9, 58397-8 ####[facility] LABCLIA [id number] [place] [id number] [place] CONSULTon 09-02-2024 CONSULT Normal [facility] CONSULT PROGon 09-02-2024 CONSULT PROG Normal [facility] Magnesium SerPl-mCncon 09-02 Magnesium [Mass/Vol] 2.1 mg/dL Normal 1.7-2.3 [facility] Comment on above: Order Comment: Speci men Type: BLOOD SPECIMENOrdering Facility: [facility] Address: [address] [place] [address] Performed By: #### 1 9123-9, 53219-2 ####[facility] LABCLIA [id number] [place] [id number] [place] NUTRITIONon 09-02-2024 NUTRITION Normal [facility] Renal function 2000 panelon 09-02-2024 Albumin [Mass/Vol] 4.2 g/dL Normal 3.9-4.9 [facility] Comment on above: Order Comment: Speci men Type: BLOOD SPECIMENOrdering Facility: [facility] Address: [address] [place] [address] Performed By: #### 1 9123-9, 85439-3 ####[facility] LABCLIA [id number] [place] [address] [place] Anion gap [Moles/Vol] 20 mmol/L High 8-15 [facility] Comment on above: Order Comment: Speci men Type: BLOOD SPECIMENOrdering Facility: [facility] Address: [address] [place] [address] Performed By: #### 1 9123-9, 41221-8 ####[facility] LABCLIA [id number] [place] [address] [place] Calcium [Mass/Vol] 9.8 mg/dL Normal 8.5-10.2 [facility] Comment on above: Order Comment: Speci men Type: BLOOD SPECIMENOrdering Facility: [facility] Address: [address] [place] [address] Performed By: #### 1 9123-9, 72634-0 ####[facility] LABCLIA [id number] [place] [address] [place] Chloride [Moles/Vol] 96 mmol/L Low 98-107 [facility] Comment on above: Order Comment: Speci men Type: BLOOD SPECIMENOrdering Facility: [facility] Address: [address] [place] [address] Performed By: #### 1 9123-9, ####[facility] LABCLIA [id number] [place] [address] [place] CO2 [Moles/Vol] 21 mmol/L Low 22-30 [facility] Comment on above: Order Comment: Speci men Type: BLOOD SPECIMENOrdering Facility: [facility] Address: [address] [place] [address] Performed By: #### 1 9123-9, 23354-9 ####[facility] LABCLIA [id number] [place] [address] [place] Creatinine [Mass/Vol] 0.70 mg/dL Normal 0.58-0.96 [facility] Comment on above: Order Comment: Alex mcgovern Type: BLOOD SPECIMENOrdering Facility: [facility] Address: [address] [place] [address] Performed By: #### 1 9123-9, 88560-1 ####[facility] LABCLIA [id number] [place] [address] [place] Creatinine and Glomerular filtration rate.predicted panel (S/P/Bld) 124 mL/min/1.73m??? Normal >=60 [facility] Comment on above: Order Comment: Alex mcgovern Type: BLOOD SPECIMENOrdering Facility: [facility] Address: [address] [place] [address] Result Comment: Cinthya mated Glomerular Filtration Rate (eGFR) is calculated using the 2020 CKD-EPI creatinine equation. This equation utilizes serum creatinine, sex, and age as parameters. The creatinine assay has traceable calibration to isotope dilution-mass spectrometry. Refer to KDIGO guidelines for clinical interpretation. In patients with unstable renal function, e.g. those with acute kidney injury, the eGFR may not accurately reflect actual GFR. Performed By: #### 1 9123-9, 75732-1 ####[facility] LABCLIA [id number] [place] [address] [place] Glucose [Mass/Vol] 85 mg/dL Normal 74-99 [facility] Comment on above: Order Comment: Alex mcgovern Type: BLOOD SPECIMENOrdering Facility: [facility] Address: [address] [place] [address] Result Comment: The [place] Diabetes Association (ADA) provides guidance for cutoff values for fasting glucose and random glucose. The ADA defines fasting as no caloric intake for at least 8 hours. Fasting plasma glucose results between 100 to 125 mg/dL indicate increased risk for diabetes (prediabetes).Fasting plasma glucose results greater than or equal to 126 mg/dL meet the criteria for diagnosis of diabetes. In the absence of unequivocal hyperglycemia, results should be confirmed by repeat testing. In a patient with classic symptoms of hyperglycemia or hyperglycemic crisis, random plasma glucose results greater than or equal to 200 mg/dL meet the criteria for diagnosis of diabetes.Reference: Standards of Medical Care in Diabetes 2016, [place] [employer]. Diabetes Care. 2016.39(Suppl 1). Performed By: #### 1 9123-9, 65636-0 ####[facility] LABCL[facility] [id number] [place] [address] [place] Phosphate [Mass/Vol] 4.2 mg/dL Normal 2.7-4.8 [facility] Comment on above: Order Comment: Speci men Type: BLOOD SPECIMENOrdering Facility: [facility] Address: [address] [place] [address] Performed By: #### 1 9123-9, 48194-6 ####[facility] LABCLIA [id number] [place] [address] [place] Potassium [Moles/Vol] 3.6 mmol/L Low 3.7-5.1 [facility] Comment on above: Order Comment: Speci men Type: BLOOD SPECIMENOrdering Facility: [facility] Address: [address] [place] [address] Performed By: #### 1 9123-9, 03130-4 ####[facility] LABIA [id number] [place] [address] [place] Sodium [Moles/Vol] 137 mmol/L Normal 136-144 [facility] Comment on above: Order Comment: Speci men Type: BLOOD SPECIMENOrdering Facility: [facility] Address: [address] [place] [address] Performed By: #### 1 9123-9, 45130-4 ####[facility] LABCLIA [id number] [address] [address] [place] Urea nitrogen [Mass/Vol] 5 mg/dL Low 7-21 [facility] Comment on above: Order Comment: Speci men Type: BLOOD SPECIMENOrdering Facility: [facility] Address: [address] [place] [address] Performed By: #### 1 9123-9, 68002-2 ####[facility] LABCLIA [id number] [place] [address] [place] Basic metabolic 2000 panelon 09-01-2024 Anion gap [Moles/Vol] 14 mmol/L Normal 8-15 [facility] Comment on above: Order Comment: Speci men Type: BLOOD SPECIMENOrdering Facility: [facility] Address: [address] [place] [address] Performed By: #### 2 777-1, 85990-6, 91710-4, ####[facility] LABCL[facility] [id number] [place] [address] [place] Calcium [Mass/Vol] 9.4 mg/dL Normal 8.5-10.2 [facility] Comment on above: Order Comment: Speci men Type: BLOOD SPECIMENOrdering Facility: [facility] Address: [address] [place] [address] Performed By: #### 2 777-1, 02729-8, 54034-2, ####[facility] LABCLIA [id number] [place] [address] [place] Chloride [Moles/Vol] 97 mmol/L Low 98-107 [facility] Comment on above: Order Comment: Speci men Type: BLOOD SPECIMENOrdering Facility: [facility] Address: [address] [place], [place] [address] Performed By: #### 2 777-1, 48036-1, 18440-6, ####[facility] LABCLIA [id number] [place] [id number] [place] CO2 [Moles/Vol] 27 mmol/L Normal 22-30 [facility] Comment on above: Order Comment: Speci men Type: BLOOD SPECIMENOrdering Facility: [facility] Address: [address] [id number] Performed By: #### 2 777-1, 61997-8, 30586-2, ####[facility] LABIA [id number] [address] [address] [place] Creatinine [Mass/Vol] 0.77 mg/dL Normal 0.58-0.96 [facility] Comment on above: Order Comment: Speci men Type: BLOOD SPECIMENOrdering Facility: [facility] Address: [address] [place] [address] Performed By: #### 2 777-1, 76051-4, 68859-4, ####[facility] [id number] [place] [address] [place] Creatinine and Glomerular filtration rate.predicted panel (S/P/Bld) 111 mL/min/1.73m??? Normal >=60 [facility] Comment on above: Order Comment: Speci men Type: BLOOD SPECIMENOrdering Facility: [facility] Address: [address] [place] [address] Result Comment: Cinthya mated Glomerular Filtration Rate (eGFR) is calculated using the 2020 CKD-EPI creatinine equation. This equation utilizes serum creatinine, sex, and age as parameters. The creatinine assay has traceable calibration to isotope dilution-mass spectrometry. Refer to KDIGO guidelines for clinical interpretation. In patients with unstable renal function, e.g. those with acute kidney injury, the eGFR may not accurately reflect actual GFR. Performed By: #### 2 777-1, 37882-5, 65991-0, ####[facility] LABIA [id number] [place] [id number] [place] Glucose [Mass/Vol] 93 mg/dL Normal 74-99 [facility] Comment on above: Order Comment: Speci men Type: BLOOD SPECIMENOrdering Facility: [facility] Address: [address] [place] [address] Result Comment: The [place] Diabetes Association (ADA) provides guidance for cutoff values for fasting glucose and random glucose. The ADA defines fasting as no caloric intake for at least 8 hours. Fasting plasma glucose results between 100 to 125 mg/dL indicate increased risk for diabetes (prediabetes).Fasting plasma glucose results greater than or equal to 126 mg/dL meet the criteria for diagnosis of diabetes. In the absence of unequivocal hyperglycemia, results should be confirmed by repeat testing. In a patient with classic symptoms of hyperglycemia or hyperglycemic crisis, random plasma glucose results greater than or equal to 200 mg/dL meet the criteria for diagnosis of diabetes.Reference: Standards of Medical Care in Diabetes 2016, [place] [employer]. Diabetes Care. 2016.39(Suppl 1). Performed By: #### 2 777-1, 48756-6, 19423-8, ####[facility] LABCL[facility] [id number] [place] [address] [place] Potassium [Moles/Vol] 3.3 mmol/L Low 3.7-5.1 [facility] Comment on above: Order Comment: Speci men Type: BLOOD SPECIMENOrdering Facility: [facility] Address: [address] [place] [address] Performed By: #### 2 777-1, 02692-6, 85025-7, ####[facility] LABIA [id number] [place] [address] [place] Sodium [Moles/Vol] 138 mmol/L Normal 136-144 [facility] Comment on above: Order Comment: Speci men Type: BLOOD SPECIMENOrdering Facility: [facility] Address: [address] [place] [address] Performed By: #### 2 777-1, 91877-7, 90504-2, ####[facility] LABCLIA [id number] [place] [address] [place] Urea nitrogen [Mass/Vol] 3 mg/dL Low 7-21 [facility] Comment on above: Order Comment: Speci men Type: BLOOD SPECIMENOrdering Facility: [facility] Address: [address] [place] [address] Performed By: #### 2 777-1, 08115-8, 93792-8, 08943-3 ####[facility] LABIA [id number] [place] [address] [place] CASE MANAGEMon 09-01-2024 CASE MANAGEM Normal [facility] CBC panel Auto (Bld)on 09-01 Erythrocyte distribution width (RBC) [Ratio] 15.8 % High 11.5-15.0 [facility] Comment on above: Order Comment: Speci men Type: BLOOD SPECIMENOrdering Facility: [facility] Address: [address] [place] [address] Performed By: #### 5 8410-2 ####[facility] LABIA [id number] [place] [address] [place] Hematocrit (Bld) [Volume fraction] 40.7 % Normal 36.0-46.0 [facility] Comment on above: Order Comment: Speci men Type: BLOOD SPECIMENOrdering Facility: [facility] Address: [address] [place] [address] Performed By: #### 5 8410-2 ####[facility] [id number] [place] [address] [place] Hemoglobin (Bld) [Mass/Vol] 12.6 g/dL Normal 11.5-15.5 [facility] Comment on above: Order Comment: Speci men Type: BLOOD SPECIMENOrdering Facility: [facility] Address: [address] [place] [address] Performed By: #### 5 8410-2 ####[facility] [id number] [place] [address] [place] MCH (RBC) [Entitic mass] 25.6 pg Low 26.0-34.0 [facility] Comment on above: Order Comment: Speci men Type: BLOOD SPECIMENOrdering Facility: [facility] Address: [address] [place] [address] Performed By: #### 5 8410-2 ####[facility]CL[facility] [id number] [place] [address] [place] MCHC (RBC) [Mass/Vol] 31.0 g/dL Normal 30.5-36.0 [facility] Comment on above: Order Comment: Speci men Type: BLOOD SPECIMENOrdering Facility: [facility] Address: [address] [place] [address] Performed By: #### 5 8410-2 ####[facility]CL[facility] [id number] [place] [address] [place] MCV (RBC) [Entitic vol] 82.6 fL Normal 80.0-100.0 [facility] Comment on above: Order Comment: Speci men Type: BLOOD SPECIMENOrdering Facility: [facility] Address: [address] [place] [address] Performed By: #### 5 8410-2 ####[facility]IA [id number] [place] [address] [place] Nucleated RBC (Bld) [#/Vol] 10*3/uL Normal <0.01 [facility] Comment on above: Order Comment: Speci men Type: BLOOD SPECIMENOrdering Facility: [facility] Address: [address] [place] [address] Performed By: #### 5 8410-2 ####[facility] LABCL[facility] [id number] [place] [address] [place] Platelet mean volume (Bld) [Entitic vol] 9.2 fL Normal 9.0-12.7 [facility] Comment on above: Order Comment: Speci men Type: BLOOD SPECIMENOrdering Facility: [facility] Address: [address] [place] [address] Performed By: #### 5 8410-2 ####[facility] LABCLIA [id number] [place] [address] [place] Platelets (Bld) [#/Vol] 256 10*3/uL Normal 150-400 [facility] Comment on above: Order Comment: Speci men Type: BLOOD SPECIMENOrdering Facility: [facility] Address: [address] [place] [address] Performed By: #### 5 8410-2 ####[facility]IA [id number] [place] [address] [place] RBC (Bld) [#/Vol] 4.93 10*6/uL Normal 3.90-5.20 [facility] Comment on above: Order Comment: Speci men Type: BLOOD SPECIMENOrdering Facility: [facility] Address: [address] [place] [address] Performed By: #### 5 8410-2 ####[facility]IA [id number] [place] [address] [place] WBC (Bld) [#/Vol] 8.08 10*3/uL Normal 3.70-11.00 [facility] Comment on above: Order Comment: Speci men Type: BLOOD SPECIMENOrdering Facility: [facility] Address: [address] [place] [address] Performed By: #### 5 8410-2 ####[facility]IA [id number] [place] [address] [place] Hepatic function 2000 panelo n 09-01-2024 Albumin [Mass/Vol] 4.2 g/dL Normal 3.9-4.9 [facility] Comment on above: Order Comment: Speci men Type: BLOOD SPECIMENOrdering Facility: [facility] Address: [address] [place] [address] Performed By: #### 2 777-1, 09294-3, 44958-3, 52754-1 ####[facility] LABCLIA [id number] [place] [address] [place] ALP [Catalytic activity/Vol] 66 U/L Normal 34-123 [facility] Comment on above: Order Comment: Speci men Type: BLOOD SPECIMENOrdering Facility: [facility] Address: [address] [place] [address] Performed By: #### 2 777-1, 71020-2, 51732-6, 77859-5 ####[facility]CL[facility] [id number] [place] [address] [place] ALT [Catalytic activity/Vol] 68 U/L High 7-38 [facility] Comment on above: Order Comment: Speci men Type: BLOOD SPECIMENOrdering Facility: [facility] Address: [address] [place] [address] Performed By: #### 2 777-1, 94430-1, 99345-2, 92189-0 ####[facility]CLIA [id number] [place] [address] [place] AST [Catalytic activity/Vol] 31 U/L Normal 13-35 [facility] Comment on above: Order Comment: Speci men Type: BLOOD SPECIMENOrdering Facility: [facility] Address: [address] [place] [address] Performed By: #### 2 777-1, 41204-5, 77204-2, 37790-3 ####[facility] LABCLIA [id number] [place] [address] [place] Bilirubin [Mass/Vol] 0.3 mg/dL Normal 0.2-1.3 [facility] Comment on above: Order Comment: Speci men Type: BLOOD SPECIMENOrdering Facility: [facility] Address: [address] [place] [address] Performed By: #### 2 777-1, 98366-9, 77964-8, 80990-9 ####[facility] LABCLIA [id number] [place] [address] [place] Bilirubin.conjugated [Mass/Vol] mg/dL Normal <0.2 [facility] Comment on above: Order Comment: Speci men Type: BLOOD SPECIMENOrdering Facility: [facility] Address: [address] [place] [address] Performed By: #### 2 777-1, 64939-2, 59760-5, 04354-7 ####[facility] LABIA [id number] [place] [address] [place] Protein [Mass/Vol] 7.1 g/dL Normal 6.3-8.0 [facility] Comment on above: Order Comment: Speci men Type: BLOOD SPECIMENOrdering Facility: [facility] Address: [address] [place] [address] Performed By: #### 2 777-1, 52468-8, 62260-9, ####[facility] LABIA [id number] [place] [address] [place] Magnesium SerPl-mCncon 09-01 Magnesium [Mass/Vol] 2.1 mg/dL Normal 1.7-2.3 [facility] Comment on above: Order Comment: Speci men Type: BLOOD SPECIMENOrdering Facility: [facility] Address: [address] [place] [address] Performed By: #### 2 777-1, 90933-5, 61359-4, ####[facility] LABIA [id number] [place] [address] [place] NM GASTRIC EMPTYING SOLIDon 09-01-2024 NM GASTRIC EMPTYING SOLID Normal [facility] NUTRITIONon 09-01-2024 NUTRITION Normal [facility] Phosphate SerPl-mCncon 09-01 Phosphate [Mass/Vol] 4.2 mg/dL Normal 2.7-4.8 [facility] Comment on above: Order Comment: Speci men Type: BLOOD SPECIMENOrdering Facility: [facility] Address: [address] [place] [address] Performed By: #### 2 777-1, 28202-3, 79048-0, ####[facility] LABCLIA [id number] [address] [address] [place] Hep Func 2000 Pnl SerPlon Albumin [Mass/Vol] 4.1 g/dL Normal 3.9-4.9 [facility] Comment on above: Order Comment: Speci men Type: BLOOD SPECIMENOrdering Facility: [facility] Address: [address] [place] [address] Performed By: #### 2 4362-6, 30516-8, ####[facility] LABCLIA [id number] [place] [address] [place] Hepatic function 2000 panelo n 08-31-2024 ALP [Catalytic activity/Vol] 61 U/L Normal 34-123 [facility] Comment on above: Order Comment: Speci men Type: BLOOD SPECIMENOrdering Facility: [facility] Address: [address] [place] [address] Performed By: #### 2 4362-6, 59500-3, ####[facility] LABCLIA [id number] [place] [address] [place] ALT [Catalytic activity/Vol] 69 U/L High 7-38 [facility] Comment on above: Order Comment: Speci men Type: BLOOD SPECIMENOrdering Facility: [facility] Address: [address] [place] [address] Performed By: #### 2 4362-6, 79211-6, ####[facility] LABCLIA [id number] [place] [address] [place] AST [Catalytic activity/Vol] 41 U/L High 13-35 [facility] Comment on above: Order Comment: Speci men Type: BLOOD SPECIMENOrdering Facility: [facility] Address: [address] [place] [address] Performed By: #### 2 4362-6, 82508-4, ####[facility] LABCLIA [id number] [place] [address] [place] Bilirubin [Mass/Vol] 0.4 mg/dL Normal 0.2-1.3 [facility] Comment on above: Order Comment: Speci men Type: BLOOD SPECIMENOrdering Facility: [facility] Address: [address] [place] [address] Performed By: #### 2 4362-6, 90989-8, ####[facility] LABCLIA [id number] [place] [address] [place] Bilirubin.conjugated [Mass/Vol] mg/dL Normal <0.2 [facility] Comment on above: Order Comment: Speci men Type: BLOOD SPECIMENOrdering Facility: [facility] Address: [address] [place] [address] Performed By: #### 2 4362-6, 03312-3, ####[facility] LABCLIA [id number] [place] [address] [place] Protein [Mass/Vol] 7.2 g/dL Normal 6.3-8.0 [facility] Comment on above: Order Comment: Speci men Type: BLOOD SPECIMENOrdering Facility: [facility] Address: [address] [place] [address] Performed By: #### 2 4362-6, 07221-7, ####[facility] LABCLIA [id number] [place] [address] [place] Magnesium SerPl-mCncon 08-31 Magnesium [Mass/Vol] 2.0 mg/dL Normal 1.7-2.3 [facility] Comment on above: Order Comment: Speci men Type: BLOOD SPECIMENOrdering Facility: [facility] Address: [address] [place], [place] [address] Performed By: #### 2 4362-6, 44902-8, ####[facility] LABCLIA [id number] [address] [address] [place] NURSING PROGon 08-31-2024 NURSING PROG Normal [facility] NURSING PROG Normal [facility] NUTRITIONon 08-31-2024 NUTRITION Normal [facility] Renal function 2000 panelon 08-31-2024 Anion gap [Moles/Vol] 20 mmol/L High 8-15 [facility] Comment on above: Order Comment: Speci men Type: BLOOD SPECIMENOrdering Facility: [facility] Address: [address] [place] [address] Performed By: #### 2 4362-6, 31986-0, ####[facility] LABCLIA [id number] [place] [address] [place] Calcium [Mass/Vol] 9.5 mg/dL Normal 8.5-10.2 [facility] Comment on above: Order Comment: Speci men Type: BLOOD SPECIMENOrdering Facility: [facility] Address: [address] [place] [address] Performed By: #### 2 4362-6, 63687-7, ####[facility] LABCLIA [id number] [place] [address] [place] Chloride [Moles/Vol] 104 mmol/L Normal 98-107 [facility] Comment on above: Order Comment: Speci men Type: BLOOD SPECIMENOrdering Facility: [facility] Address: [address] [place] [address] Performed By: #### 2 4362-6, 26449-7, ####[facility] LABCLIA [id number] [place] [address] [place] CO2 [Moles/Vol] 18 mmol/L Low 22-30 [facility] Comment on above: Order Comment: Speci men Type: BLOOD SPECIMENOrdering Facility: [facility] Address: [address] [place] [address] Performed By: #### 2 4362-6, 04910-4, ####[facility] LABCLIA [id number] [place] [address] [place] Creatinine [Mass/Vol] 0.72 mg/dL Normal 0.58-0.96 [facility] Comment on above: Order Comment: Speci men Type: BLOOD SPECIMENOrdering Facility: [facility] Address: [address] [place] [address] Performed By: #### 2 4362-6, 08188-6, ####[facility] LABCLIA [id number] [address] [facility] Creatinine and Glomerular filtration rate.predicted panel (S/P/Bld) 120 mL/min/1.73m??? Normal >=60 [facility] Comment on above: Order Comment: Alex mcgovern Type: BLOOD SPECIMENOrdering Facility: [facility] Address: [address] [place] [address] Result Comment: Cinthya mated Glomerular Filtration Rate (eGFR) is calculated using the 2020 CKD-EPI creatinine equation. This equation utilizes serum creatinine, sex, and age as parameters. The creatinine assay has traceable calibration to isotope dilution-mass spectrometry. Refer to KDIGO guidelines for clinical interpretation. In patients with unstable renal function, e.g. those with acute kidney injury, the eGFR may not accurately reflect actual GFR. Performed By: #### 2 4362-6, 19664-0, ####[facility]CL[facility] [id number] [place] [address] [place] Glucose [Mass/Vol] 91 mg/dL Normal 74-99 [facility] Comment on above: Order Comment: Speci men Type: BLOOD SPECIMENOrdering Facility: [facility] Address: [address] [place] [address] Result Comment: The [place] [employer] (ADA) provides guidance for cutoff values for fasting glucose and random glucose. The ADA defines fasting as no caloric intake for at least 8 hours. Fasting plasma glucose results between 100 to 125 mg/dL indicate increased risk for diabetes (prediabetes).Fasting plasma glucose results greater than or equal to 126 mg/dL meet the criteria for diagnosis of diabetes. In the absence of unequivocal hyperglycemia, results should be confirmed by repeat testing. In a patient with classic symptoms of hyperglycemia or hyperglycemic crisis, random plasma glucose results greater than or equal to 200 mg/dL meet the criteria for diagnosis of diabetes.Reference: Standards of Medical Care in Diabetes 2016, [place] [employer]. Diabetes Care. 2016.39(Suppl 1). Performed By: #### 2 4362-6, 27804-0, ####[facility]CL[facility] [id number] [place] [address] [place] Phosphate [Mass/Vol] 4.0 mg/dL Normal 2.7-4.8 [facility] Comment on above: Order Comment: Speci men Type: BLOOD SPECIMENOrdering Facility: [facility] Address: [address] [place] [address] Performed By: #### 2 4362-6, 72476-9, ####[facility] LABCL[facility] [id number] [place] [address] [place] Potassium [Moles/Vol] 3.7 mmol/L Normal 3.7-5.1 [facility] Comment on above: Order Comment: Speci men Type: BLOOD SPECIMENOrdering Facility: [facility] Address: [address] [place] [address] Performed By: #### 2 4362-6, 25483-8, ####[facility]CL[facility] [id number] [address] [address] [place] Sodium [Moles/Vol] 142 mmol/L Normal 136-144 [facility] Comment on above: Order Comment: Speci men Type: BLOOD SPECIMENOrdering Facility: [facility] Address: [address] [place], [place] [address] Performed By: #### 2 4362-6, 44215-7, ####[facility]CL[facility] [id number] [address] [address] [place] Urea nitrogen [Mass/Vol] 2 mg/dL Low 7-21 [facility] Comment on above: Order Comment: Speci men Type: BLOOD SPECIMENOrdering Facility: [facility] Address: [address] [place] [address] Performed By: #### 2 4362-6, 44496-3, ####[facility]CL[facility] [id number] [place] [address] [place] Basic metabolic 2000 panelon 08-30-2024 Anion gap [Moles/Vol] 16 mmol/L High 8-15 [facility] Comment on above: Order Comment: Speci men Type: BLOOD SPECIMENOrdering Facility: [facility] Address: [address] [place] [address] Performed By: #### 2 4321-2, 75623-2, , 2776- ####[facility]CL[facility] [id number] [place] [address] [place] Calcium [Mass/Vol] 9.4 mg/dL Normal 8.5-10.2 [facility] Comment on above: Order Comment: Speci men Type: BLOOD SPECIMENOrdering Facility: [facility] Address: [address] [place], [place] [address] Performed By: #### 2 4321-2, 44368-0, 24981-4, 277- ####[facility]CL[facility] [id number] [place] [address] [place] Chloride [Moles/Vol] 99 mmol/L Normal 98-107 [facility] Comment on above: Order Comment: Speci men Type: BLOOD SPECIMENOrdering Facility: [facility] Address: [address] [place], [place] [address] Performed By: #### 2 4321-2, 11953-4, , 2776- ####[facility]CL[facility] [id number] [address] [address] [place] CO2 [Moles/Vol] 24 mmol/L Normal 22-30 [facility] Comment on above: Order Comment: Speci men Type: BLOOD SPECIMENOrdering Facility: [facility] Address: [address] [place] [address] Performed By: #### 2 4321-2, 70900-9, , 2776-09 ####[facility] [id number] [place] [address] [place] Creatinine [Mass/Vol] 0.67 mg/dL Normal 0.58-0.96 [facility] Comment on above: Order Comment: Speci men Type: BLOOD SPECIMENOrdering Facility: [facility] Address: [address] [place] [address] Performed By: #### 2 4321-2, 27216-1, , 2776-09 ####[facility] [id number] [place] [address] [place] Creatinine and Glomerular filtration rate.predicted panel (S/P/Bld) 125 mL/min/1.73m??? Normal >=60 [facility] Comment on above: Order Comment: Speci men Type: BLOOD SPECIMENOrdering Facility: [facility] Address: [address] [place] [address] Result Comment: Cinthya mated Glomerular Filtration Rate (eGFR) is calculated using the 2020 CKD-EPI creatinine equation. This equation utilizes serum creatinine, sex, and age as parameters. The creatinine assay has traceable calibration to isotope dilution-mass spectrometry. Refer to KDIGO guidelines for clinical interpretation. In patients with unstable renal function, e.g. those with acute kidney injury, the eGFR may not accurately reflect actual GFR. Performed By: #### 2 4321-2, 35439-5, , 2776-09 ####[facility] [id number] [address] [address] [place] Glucose [Mass/Vol] 121 mg/dL High 74-99 [facility] Comment on above: Order Comment: Alex mcgovern Type: BLOOD SPECIMENOrdering Facility: [facility] Address: [address] [place] [address] Result Comment: The [place] Diabetes [employer] (ADA) provides guidance for cutoff values for fasting glucose and random glucose. The ADA defines fasting as no caloric intake for at least 8 hours. Fasting plasma glucose results between 100 to 125 mg/dL indicate increased risk for diabetes (prediabetes).Fasting plasma glucose results greater than or equal to 126 mg/dL meet the criteria for diagnosis of diabetes. In the absence of unequivocal hyperglycemia, results should be confirmed by repeat testing. In a patient with classic symptoms of hyperglycemia or hyperglycemic crisis, random plasma glucose results greater than or equal to 200 mg/dL meet the criteria for diagnosis of diabetes.Reference: Standards of Medical Care in Diabetes 2016, [place] [employer]. Diabetes Care. 2016.39(Suppl 1). Performed By: #### 2 4321-2, 32402-4, , 2776-09 ####[facility] [id number] [address] [address] [place] Potassium [Moles/Vol] 3.1 mmol/L Low 3.7-5.1 [facility] Comment on above: Order Comment: Alex mcgovern Type: BLOOD SPECIMENOrdering Facility: [facility] Address: [address] [place] [address] Performed By: #### 2 4321-2, 48358-5, , 2776-09 ####[facility] [id number] [address] [address] [place] Sodium [Moles/Vol] 139 mmol/L Normal 136-144 [facility] Comment on above: Order Comment: Speci men Type: BLOOD SPECIMENOrdering Facility: [facility] Address: [address] [place] [address] Performed By: #### 2 4321-2, 92761-3, 05266-6, 2776- ####[facility] [id number] [address] [address] [place] Urea nitrogen [Mass/Vol] 3 mg/dL Low 7-21 [facility] Comment on above: Order Comment: Speci men Type: BLOOD SPECIMENOrdering Facility: [facility] Address: [address] [place] [address] Performed By: #### 2 4321-2, 38399-4, , 2776- ####[facility] [id number] [place] [address] [place] CONSULT PROGon 08-30-2024 CONSULT PROG Normal [facility] Hepatic function 2000 panelo n 08-30-2024 Albumin [Mass/Vol] 4.3 g/dL Normal 3.9-4.9 [facility] Comment on above: Order Comment: Speci men Type: BLOOD SPECIMENOrdering Facility: [facility] Address: [address] [place] [address] Performed By: #### 2 4321-2, 62840-4, , 2776- ####[facility] [id number] [place] [address] [place] ALP [Catalytic activity/Vol] 63 U/L Normal 34-123 [facility] Comment on above: Order Comment: Speci men Type: BLOOD SPECIMENOrdering Facility: [facility] Address: [address] [place] [address] Performed By: #### 2 4321-2, 78822-2, 35108-2, 2776- ####[facility] [id number] [place] [id number] [place] [place] ALT [Catalytic activity/Vol] 57 U/L High 7-38 [facility] Comment on above: Order Comment: Speci men Type: BLOOD SPECIMENOrdering Facility: [facility] Address: [address] [place] [address] Performed By: #### 2 4321-2, 72810-8, 20415-5, 7-1 ####[facility] LABCL[facility] [id number] [place] [address] [place] AST [Catalytic activity/Vol] 35 U/L Normal 13-35 [facility] Comment on above: Order Comment: Speci men Type: BLOOD SPECIMENOrdering Facility: [facility] Address: [address] [place] [address] Performed By: #### 2 4321-2, 76349-9, 98953-6, 2776-1 ####[facility]CL[facility] [id number] [place] [address] [place] Bilirubin [Mass/Vol] 0.5 mg/dL Normal 0.2-1.3 [facility] Comment on above: Order Comment: Speci men Type: BLOOD SPECIMENOrdering Facility: [facility] Address: [address] [place] [address] Performed By: #### 2 4321-2, 78789-1, 99950-3, 2776-1 ####[facility]CL[facility] [id number] [place] [address] [place] Bilirubin.conjugated [Mass/Vol] 0.2 mg/dL High <0.2 [facility] Comment on above: Order Comment: Speci men Type: BLOOD SPECIMENOrdering Facility: [facility] Address: [address] [place] [address] Performed By: #### 2 4321-2, 95715-7, 41608-9, 2777-1 ####[facility]CL[facility] [id number] [place] [address] [place] Protein [Mass/Vol] 7.3 g/dL Normal 6.3-8.0 [facility] Comment on above: Order Comment: Speci men Type: BLOOD SPECIMENOrdering Facility: [facility] Address: [address] [place] [address] Performed By: #### 2 4321-2, 12751-4, 65815-6, 7-1 ####[facility] LABCL[facility] [id number] [place] [address] [place] Magnesium SerPl-mCncon 08-30 Magnesium [Mass/Vol] 2.0 mg/dL Normal 1.7-2.3 [facility] Comment on above: Order Comment: Speci men Type: BLOOD SPECIMENOrdering Facility: [facility] Address: [address] [place] [address] Performed By: #### 2 4321-2, 30227-7, , 2776- ####[facility]CL[facility] [id number] [place] [id number] [place] NUTRITIONon 08-30-2024 NUTRITION Normal [facility] Phosphate SerPl-mCncon 08-30 Phosphate [Mass/Vol] 3.6 mg/dL Normal 2.7-4.8 [facility] Comment on above: Order Comment: Speci men Type: BLOOD SPECIMENOrdering Facility: [facility] Address: [address] [place] [address] Performed By: #### 2 4321-2, 37757-3, , 2776- ####[facility]CL[facility] [id number] [place] [id number] [place] URINALYSIS, DIPSTICK ONLYon 08-30-2024 Bilirubin Ql (U) Negative Normal Negative [facility] Comment on above: Order Comment: Speci men Type: URINE SPECIMENOrdering Facility: [facility] Address: [address] [place] [address] Performed By: #### U A ####[facility]CL[facility] [id number] [place] [address] [place] Clarity (Unsp spec) Clear Normal Clear [facility] Comment on above: Order Comment: Speci men Type: URINE SPECIMENOrdering Facility: [facility] Address: [address] [place] [address] Performed By: #### U A ####[facility]CL[facility] [id number] [place] [address] [place] Color (U) Yellow Normal Yellow [facility] Comment on above: Order Comment: Speci men Type: URINE SPECIMENOrdering Facility: [facility] Address: [address] [place] [address] Performed By: #### U A ####[facility]CL[facility] [id number] [place] [address] [place] Glucose Test strip (U) [Mass/Vol] Negative Normal Negative [facility] Comment on above: Order Comment: Speci men Type: URINE SPECIMENOrdering Facility: [facility] Address: [address] [place] [address] Performed By: #### U A ####[facility]CL[facility] [id number] [place] [address] [place] Hemoglobin Ql (U) Negative Normal Negative [facility] Comment on above: Order Comment: Speci men Type: URINE SPECIMENOrdering Facility: [facility] Address: [address] [place] [address] Performed By: #### U A ####[facility]CL[facility] [id number] [address] [place] Ketones Ql (U) 1+ Abnormal Negative [facility] Comment on above: Order Comment: Speci men Type: URINE SPECIMENOrdering Facility: [facility] Address: [address] [place] [address] Performed By: #### U A ####[facility]CL[facility] [id number] [place] [address] [place] Leukocyte esterase Test strip Ql (U) Negative Normal Negative [facility] Comment on above: Order Comment: Speci men Type: URINE SPECIMENOrdering Facility: [facility] Address: [address] [place] [address] Performed By: #### U A ####[facility]CL[facility] [id number] [place] [address] [place] Nitrite Ql (U) Negative Normal Negative [facility] Comment on above: Order Comment: Speci men Type: URINE SPECIMENOrdering Facility: [facility] Address: [address] [place] [address] Performed By: #### U A ####[facility] LABIA [id number] [place] [address] [place] pH (U) 6.0 [pH] Normal <8.5 [facility] Comment on above: Order Comment: Speci men Type: URINE SPECIMENOrdering Facility: [facility] Address: [address] [place] [address] Performed By: #### U A ####[facility] LABIA [id number] [place] [address] [place] Protein (U) [Mass/Vol] Negative Normal Negative [facility] Comment on above: Order Comment: Speci men Type: URINE SPECIMENOrdering Facility: [facility] Address: [address] [place] [address] Performed By: #### U A ####[facility] LABIA [id number] [place] [address] [place] Specific gravity (U) [Rel density] 1.007 Normal 1.005-1.03 0 [facility] Comment on above: Order Comment: Speci men Type: URINE SPECIMENOrdering Facility: [facility] Address: [address] [place], [place] [address] Performed By: #### U A ####[facility]CL[facility] [id number] [place] [address] [place] Urobilinogen Ql (U) 0.2 EU/dL Normal 0.2-1.0 EU/dL [facility] Comment on above: Order Comment: Speci men Type: URINE SPECIMENOrdering Facility: [facility] Address: [address] [place], [place] [address] Performed By: #### U A ####[facility] LABIA [id number] [place] [address] [place] Basic metabolic 2000 panelon 08-29-2024 Anion gap [Moles/Vol] 22 mmol/L High 8-15 [facility] Comment on above: Order Comment: Speci men Type: BLOOD SPECIMENOrdering Facility: [facility] Address: [address] [place], [place] [address] Performed By: #### 2 4325-3, 2777-1, 79831-3, 20987-3 ####[facility] LABIA [id number] [place] [address] [place] Calcium [Mass/Vol] 9.7 mg/dL Normal 8.5-10.2 [facility] Comment on above: Order Comment: Speci men Type: BLOOD SPECIMENOrdering Facility: [facility] Address: [address] [place], [place] [address] Performed By: #### 2 4325-3, 2777-1, 27676-9, 21477-2 ####[facility] LABIA [id number] [place] [address] [place] Chloride [Moles/Vol] 94 mmol/L Low 98-107 [facility] Comment on above: Order Comment: Speci men Type: BLOOD SPECIMENOrdering Facility: [facility] Address: [address] [place], [place] [address] Performed By: #### 2 4325-3, 2777-1, , 58363-2 ####[facility]CLIA [id number] [place] [address] [place] CO2 [Moles/Vol] 17 mmol/L Low 22-30 [facility] Comment on above: Order Comment: Speci men Type: BLOOD SPECIMENOrdering Facility: [facility] Address: [address] [place] [address] Performed By: #### 2 4325-3, 277-1, , 15534-8 ####[facility] LABCLIA [id number] [place] [address] [place] Creatinine [Mass/Vol] 0.64 mg/dL Normal 0.58-0.96 [facility] Comment on above: Order Comment: Speci men Type: BLOOD SPECIMENOrdering Facility: [facility] Address: [address] [place] [address] Performed By: #### 2 4325-3, 277-, , ####[facility] LABIA [id number] [place] [address] [place] Creatinine and Glomerular filtration rate.predicted panel (S/P/Bld) 127 mL/min/1.73m??? Normal >=60 [facility] Comment on above: Order Comment: Speci men Type: BLOOD SPECIMENOrdering Facility: [facility] Address: [address] [place] [address] Result Comment: Cinthya mated Glomerular Filtration Rate (eGFR) is calculated using the 2020 CKD-EPI creatinine equation. This equation utilizes serum creatinine, sex, and age as parameters. The creatinine assay has traceable calibration to isotope dilution-mass spectrometry. Refer to KDIGO guidelines for clinical interpretation. In patients with unstable renal function, e.g. those with acute kidney injury, the eGFR may not accurately reflect actual GFR. Performed By: #### 2 4325-3, 2777-1, , 50325-9 ####[facility] LABCLIA [id number] [address] [address] [place] Glucose [Mass/Vol] 90 mg/dL Normal 74-99 [facility] Comment on above: Order Comment: Speci men Type: BLOOD SPECIMENOrdering Facility: [facility] Address: [address] [place] [address] Result Comment: The [place] [employer] (ADA) provides guidance for cutoff values for fasting glucose and random glucose. The ADA defines fasting as no caloric intake for at least 8 hours. Fasting plasma glucose results between 100 to 125 mg/dL indicate increased risk for diabetes (prediabetes).Fasting plasma glucose results greater than or equal to 126 mg/dL meet the criteria for diagnosis of diabetes. In the absence of unequivocal hyperglycemia, results should be confirmed by repeat testing. In a patient with classic symptoms of hyperglycemia or hyperglycemic crisis, random plasma glucose results greater than or equal to 200 mg/dL meet the criteria for diagnosis of diabetes.Reference: Standards of Medical Care in Diabetes 2016, [place] [employer]. Diabetes Care. 2016.39(Suppl 1). Performed By: #### 2 4325-3, 2777-1, 89113-3, 13236-9 ####[facility] LABIA [id number] [place] [address] [place] Potassium [Moles/Vol] 3.9 mmol/L Normal 3.7-5.1 [facility] Comment on above: Order Comment: Speci men Type: BLOOD SPECIMENOrdering Facility: [facility] Address: [address] [place] [address] Performed By: #### 2 4325-3, 2777-1, 76768-7, 66394-5 ####[facility] LABIA [id number] [place] [address] [place] Sodium [Moles/Vol] 133 mmol/L Low 136-144 [facility] Comment on above: Order Comment: Speci men Type: BLOOD SPECIMENOrdering Facility: [facility] Address: [address] [place] [address] Performed By: #### 2 4325-3, 2777-1, 22407-8, 27406-1 ####[facility]CL[facility] [id number] [address] [address] [place] Urea nitrogen [Mass/Vol] 5 mg/dL Low 7-21 [facility] Comment on above: Order Comment: Speci men Type: BLOOD SPECIMENOrdering Facility: [facility] Address: [address] [place] [address] Performed By: #### 2 4325-3, 2776-1, , 89199-7 ####[facility] LABCLIA [id number] [place] [id number] [place] CASE MANAGEMon 08-29-2024 CASE MANAGEM Normal [facility] CONSULT PROGon 08-29-2024 CONSULT PROG Normal [facility] Hepatic function 2000 panelo n 08-29-2024 Albumin [Mass/Vol] 4.1 g/dL Normal 3.9-4.9 [facility] Comment on above: Order Comment: Speci men Type: BLOOD SPECIMENOrdering Facility: [facility] Address: [address] [place] [address] Performed By: #### 2 4325-3, 2776-1, , 14709-7 ####[facility] LABCLIA [id number] [place] [address] [place] ALP [Catalytic activity/Vol] 63 U/L Normal 34-123 [facility] Comment on above: Order Comment: Speci men Type: BLOOD SPECIMENOrdering Facility: [facility] Address: [address] [place] [address] Performed By: #### 2 4325-3, 2776-1, , 40770-0 ####[facility]CL[facility] [id number] [address] [address] [place] ALT [Catalytic activity/Vol] 55 U/L High 7-38 [facility] Comment on above: Order Comment: Speci men Type: BLOOD SPECIMENOrdering Facility: [facility] Address: [address] [place] [address] Performed By: #### 2 4325-3, 277-, , 01077-8 ####[facility]CLIA [id number] [place] [id number] [place] AST [Catalytic activity/Vol] 36 U/L High 13-35 [facility] Comment on above: Order Comment: Speci men Type: BLOOD SPECIMENOrdering Facility: [facility] Address: [address] [place] [address] Result Comment: Resu lts may be falsely increased due to interference from hemolysis. Suggest reorder as clinically indicated. Performed By: #### 2 4325-3, 277-1, , 46467-4 ####[facility] LABCLIA [id number] [place] [address] [place] Bilirubin [Mass/Vol] 0.5 mg/dL Normal 0.2-1.3 [facility] Comment on above: Order Comment: Speci men Type: BLOOD SPECIMENOrdering Facility: [facility] Address: [address] [place] [address] Performed By: #### 2 4325-3, 277-1, , 05950-7 ####[facility]CL[facility] [id number] [place] [address] [place] Bilirubin.conjugated [Mass/Vol] mg/dL Normal <0.2 [facility] Comment on above: Order Comment: Speci men Type: BLOOD SPECIMENOrdering Facility: [facility] Address: [address] [place] [address] Result Comment: Resu lts may be falsely decreased due to interference from hemolysis. Suggest reorder as clinically indicated. Performed By: #### 2 4325-3, 277-1, , 49514-9 ####[facility]CLIA [id number] [place] [id number] [place] Protein [Mass/Vol] 7.8 g/dL Normal 6.3-8.0 [facility] Comment on above: Order Comment: Speci men Type: BLOOD SPECIMENOrdering Facility: [facility] Address: [address] [place] [address] Performed By: #### 2 4325-3, 2777-1, , 59947-4 ####[facility] LABIA [id number] [place] [address] [place] Magnesium SerPl-ncon 08-29 Magnesium [Mass/Vol] 2.1 mg/dL Normal 1.7-2.3 [facility] Comment on above: Order Comment: Speci men Type: BLOOD SPECIMENOrdering Facility: [facility] Address: [address] [place] [address] Performed By: #### 2 4325-3, 2777-1, , 78155-0 ####[facility] [id number] [place] [id number] [place] NUTRITIONon 08-29-2024 NUTRITION Normal [facility] Phosphate SerPl-mCncon 08-29 Phosphate [Mass/Vol] 3.9 mg/dL Normal 2.7-4.8 [facility] Comment on above: Order Comment: Speci men Type: BLOOD SPECIMENOrdering Facility: [facility] Address: [address] [place], [place] [address] Performed By: #### 2 4325-3, 2777-1, , 91325-4 ####[facility] LABIA [id number] [place] [id number] [place] URINALYSIS, DIPSTICK ONLYon 08-29-2024 Bilirubin Ql (U) Negative Normal Negative [facility] Comment on above: Order Comment: Speci men Type: URINE SPECIMENOrdering Facility: [facility] Address: [address] [place] [address] Performed By: #### U A ####[facility]CL[facility] [id number] [place] [address] [place] Clarity (Unsp spec) Clear Normal Clear [facility] Comment on above: Order Comment: Speci men Type: URINE SPECIMENOrdering Facility: [facility] Address: [address] [place] [address] Performed By: #### U A ####[facility]CL[facility] [id number] [place] [address] [place] Color (U) Yellow Normal Yellow [facility] Comment on above: Order Comment: Speci men Type: URINE SPECIMENOrdering Facility: [facility] Address: [address] [place] [address] Performed By: #### U A ####[facility] LABCL[facility] [id number] [place] [address] [place] Glucose Test strip (U) [Mass/Vol] Negative Normal Negative [facility] Comment on above: Order Comment: Speci men Type: URINE SPECIMENOrdering Facility: [facility] Address: [address] [place] [address] Performed By: #### U A ####[facility] LABCLIA [id number] [place] [address] [place] Hemoglobin Ql (U) Negative Normal Negative [facility] Comment on above: Order Comment: Speci men Type: URINE SPECIMENOrdering Facility: [facility] Address: [address] [place] [address] Performed By: #### U A ####[facility]CL[facility] [id number] [place] [address] [place] Ketones Ql (U) 2+ Abnormal Negative [facility] Comment on above: Order Comment: Speci men Type: URINE SPECIMENOrdering Facility: [facility] Address: [address] [place] [address] Performed By: #### U A ####[facility] LABIA [id number] [place] [address] [place] Leukocyte esterase Test strip Ql (U) Negative Normal Negative [facility] Comment on above: Order Comment: Speci men Type: URINE SPECIMENOrdering Facility: [facility] Address: [address] [place] [address] Performed By: #### U A ####[facility] LABIA [id number] [place] [address] [place] Nitrite Ql (U) Negative Normal Negative [facility] Comment on above: Order Comment: Speci men Type: URINE SPECIMENOrdering Facility: [facility] Address: [address] [place] [address] Performed By: #### U A ####[facility] LABIA [id number] [place] [address] [place] pH (U) 6.0 [pH] Normal <8.5 [facility] Comment on above: Order Comment: Speci men Type: URINE SPECIMENOrdering Facility: [facility] Address: [address] [place] [address] Performed By: #### U A ####[facility] LABIA [id number] [place] [address] [place] Protein (U) [Mass/Vol] Negative Normal Negative [facility] Comment on above: Order Comment: Speci men Type: URINE SPECIMENOrdering Facility: [facility] Address: [address] [place] [address] Performed By: #### U A ####[facility] LABIA [id number] [place] [address] [place] Specific gravity (U) [Rel density] 1.008 Normal 1.005-1.03 0 [facility] Comment on above: Order Comment: Speci men Type: URINE SPECIMENOrdering Facility: [facility] Address: [address] [place] [address] Performed By: #### U A ####[facility] LABIA [id number] [address] [address] [place] Urobilinogen Ql (U) 0.2 EU/dL Normal 0.2-1.0 EU/dL [facility] Comment on above: Order Comment: Speci men Type: URINE SPECIMENOrdering Facility: [facility] Address: [address] [place] [address] Performed By: #### U A ####[facility] [id number] [place] [address] [place] Hepatic function 2000 panelo n 08-28-2024 Albumin [Mass/Vol] 4.1 g/dL Normal 3.9-4.9 [facility] Comment on above: Order Comment: Speci men Type: BLOOD SPECIMENOrdering Facility: [facility] Address: [address] [place] [address] Performed By: #### 2 4325-3, 11030-1, 13177-6 ####[facility] [id number] [place] [address] [place] ALP [Catalytic activity/Vol] 59 U/L Normal 34-123 [facility] Comment on above: Order Comment: Speci men Type: BLOOD SPECIMENOrdering Facility: [facility] Address: [address] [place] [address] Performed By: #### 2 4325-3, 72390-1, 52225-3 ####[facility] LABIA [id number] [place] [id number] [place] ALT [Catalytic activity/Vol] 49 U/L High 7-38 [facility] Comment on above: Order Comment: Speci men Type: BLOOD SPECIMENOrdering Facility: [facility] Address: [address] [place] [address] Performed By: #### 2 4325-3, 76685-6, ####[facility]CL[facility] [id number] [address] [address] [place] AST [Catalytic activity/Vol] 25 U/L Normal 13-35 [facility] Comment on above: Order Comment: Speci men Type: BLOOD SPECIMENOrdering Facility: [facility] Address: [address] [place] [address] Performed By: #### 2 4325-3, 32204-3, ####[facility] LABCL[facility] [id number] [address] [address] [place] Bilirubin [Mass/Vol] 0.3 mg/dL Normal 0.2-1.3 [facility] Comment on above: Order Comment: Speci men Type: BLOOD SPECIMENOrdering Facility: [facility] Address: [address] [place] [address] Performed By: #### 2 4325-3, 14010-9, ####[facility]IA [id number] [address] [address] [place] Bilirubin.conjugated [Mass/Vol] mg/dL Normal <0.2 [facility] Comment on above: Order Comment: Speci men Type: BLOOD SPECIMENOrdering Facility: [facility] Address: [address] [place] [address] Performed By: #### 2 4325-3, 57269-8, ####[facility]IA [id number] [address] [address] [place] Protein [Mass/Vol] 7.3 g/dL Normal 6.3-8.0 [facility] Comment on above: Order Comment: Speci men Type: BLOOD SPECIMENOrdering Facility: [facility] Address: [address] [place] [address] Performed By: #### 2 4325-3, 15262-9, ####[facility]CL[facility] [id number] [address] [address] [place] Magnesium SerPl-mCncon 08-28 Magnesium [Mass/Vol] 2.3 mg/dL Normal 1.7-2.3 [facility] Comment on above: Order Comment: Speci men Type: BLOOD SPECIMENOrdering Facility: [facility] Address: [address] [place] [address] Performed By: #### 2 4325-3, 05822-8, ####[facility] LABCLIA [id number] [place] [id number] [place] NUTRITIONon 08-28-2024 NUTRITION Normal [facility] Renal function 2000 panelon 08-28-2024 Albumin [Mass/Vol] 4.2 g/dL Normal 3.9-4.9 [facility] Comment on above: Order Comment: Speci men Type: BLOOD SPECIMENOrdering Facility: [facility] Address: [address] [place] [address] Performed By: #### 2 4325-3, 44081-7, ####[facility]CL[facility] [id number] [place] [id number] [place] Anion gap [Moles/Vol] 19 mmol/L High 8-15 [facility] Comment on above: Order Comment: Speci men Type: BLOOD SPECIMENOrdering Facility: [facility] Address: [address] [place] [address] Performed By: #### 2 4325-3, 18949-7, ####[facility]CL[facility] [id number] [place] [address] [place] Calcium [Mass/Vol] 9.7 mg/dL Normal 8.5-10.2 [facility] Comment on above: Order Comment: Speci men Type: BLOOD SPECIMENOrdering Facility: [facility] Address: [address] [place] [id number] Performed By: #### 2 4325-3, 55133-1, ####[facility] LABCLIA [id number] [place] [address] [place] Chloride [Moles/Vol] 98 mmol/L Normal 98-107 [facility] Comment on above: Order Comment: Speci men Type: BLOOD SPECIMENOrdering Facility: [facility] Address: [address] [place] [address] Performed By: #### 2 4325-3, 11783-6, ####[facility]CLIA [id number] [place] [address] [place] CO2 [Moles/Vol] 22 mmol/L Normal 22-30 [facility] Comment on above: Order Comment: Speci men Type: BLOOD SPECIMENOrdering Facility: [facility] Address: [address] [place] [address] Performed By: #### 2 4325-3, 92508-1, ####[facility] LABIA [id number] [place] [address] [place] Creatinine [Mass/Vol] 0.75 mg/dL Normal 0.58-0.96 [facility] Comment on above: Order Comment: Speci men Type: BLOOD SPECIMENOrdering Facility: [facility] Address: [address] [place] [address] Performed By: #### 2 4325-3, 33750-2, ####[facility] LABIA [id number] [place] [id number] [place] Creatinine and Glomerular filtration rate.predicted panel (S/P/Bld) 114 mL/min/1.73m??? Normal >=60 [facility] Comment on above: Order Comment: Speci men Type: BLOOD SPECIMENOrdering Facility: [facility] Address: [address] [place] [address] Result Comment: Cinthya mated Glomerular Filtration Rate (eGFR) is calculated using the 2020 CKD-EPI creatinine equation. This equation utilizes serum creatinine, sex, and age as parameters. The creatinine assay has traceable calibration to isotope dilution-mass spectrometry. Refer to KDIGO guidelines for clinical interpretation. In patients with unstable renal function, e.g. those with acute kidney injury, the eGFR may not accurately reflect actual GFR. Performed By: #### 2 4325-3, 61453-5, ####[facility] LABCLIA [id number] [address] [address] [place] Glucose [Mass/Vol] 95 mg/dL Normal 74-99 [facility] Comment on above: Order Comment: Alex mcgovern Type: BLOOD SPECIMENOrdering Facility: [facility] Address: [address] [place] [address] Result Comment: The [place] [employer] (ADA) provides guidance for cutoff values for fasting glucose and random glucose. The ADA defines fasting as no caloric intake for at least 8 hours. Fasting plasma glucose results between 100 to 125 mg/dL indicate increased risk for diabetes (prediabetes).Fasting plasma glucose results greater than or equal to 126 mg/dL meet the criteria for diagnosis of diabetes. In the absence of unequivocal hyperglycemia, results should be confirmed by repeat testing. In a patient with classic symptoms of hyperglycemia or hyperglycemic crisis, random plasma glucose results greater than or equal to 200 mg/dL meet the criteria for diagnosis of diabetes.Reference: Standards of Medical Care in Diabetes 2016, [place] [employer]. Diabetes Care. 2016.39(Suppl 1). Performed By: #### 2 4325-3, 91783-3, ####[facility] LABIA [id number] [address] [address] [place] Phosphate [Mass/Vol] 5.3 mg/dL High 2.7-4.8 [facility] Comment on above: Order Comment: Alex men Type: BLOOD SPECIMENOrdering Facility: [facility] Address: [address] [place] [id number] Performed By: #### 2 4325-3, 48050-1, ####[facility]CL[facility] [id number] [address] [address] [place] Potassium [Moles/Vol] 3.6 mmol/L Low 3.7-5.1 [facility] Comment on above: Order Comment: Speci men Type: BLOOD SPECIMENOrdering Facility: [facility] Address: [address] [place] [address] Performed By: #### 2 4325-3, 54124-3, ####[facility]CLIA [id number] [place] [address] [place] Sodium [Moles/Vol] 139 mmol/L Normal 136-144 [facility] Comment on above: Order Comment: Speci men Type: BLOOD SPECIMENOrdering Facility: [facility] Address: [address] [place] [address] Performed By: #### 2 4325-3, 18795-2, ####[facility] LABCLIA [id number] [place] [address] [place] Urea nitrogen [Mass/Vol] 4 mg/dL Low 7-21 [facility] Comment on above: Order Comment: Speci men Type: BLOOD SPECIMENOrdering Facility: [facility] Address: [address] [place] [address] Performed By: #### 2 4325-3, 21116-6, ####[facility]CL[facility] [id number] [address] [address] [place] URINALYSIS, DIPSTICK ONLYon 08-28-2024 Bilirubin Ql (U) Negative Normal Negative [facility] Comment on above: Order Comment: Speci men Type: URINE SPECIMENOrdering Facility: [facility] Address: [address] [place] [address] Performed By: #### U A ####[facility] LABCLIA [id number] [place] [address] [place] Clarity (Unsp spec) Clear Normal Clear Ignacio [facility] Comment on above: Order Comment: Speci men Type: URINE SPECIMENOrdering Facility: [facility] Address: [address] [place] [address] Performed By: #### U A ####[facility]CL[facility] [id number] [place] [address] [place] Color (U) Yellow Normal Yellow [facility] Comment on above: Order Comment: Speci men Type: URINE SPECIMENOrdering Facility: [facility] Address: [address] [place] [address] Performed By: #### U A ####[facility] LABCL[facility] [id number] [place] [address] [place] Glucose Test strip (U) [Mass/Vol] Negative Normal Negative [facility] Comment on above: Order Comment: Speci men Type: URINE SPECIMENOrdering Facility: [facility] Address: [address] [place] [address] Performed By: #### U A ####[facility]CL[facility] [id number] [place] [address] [place] Hemoglobin Ql (U) Negative Normal Negative [facility] Comment on above: Order Comment: Speci men Type: URINE SPECIMENOrdering Facility: [facility] Address: [address] [place] [address] Performed By: #### U A ####[facility]CL[facility] [id number] [place] [address] [place] Ketones Ql (U) 2+ Abnormal Negative [facility] Comment on above: Order Comment: Speci men Type: URINE SPECIMENOrdering Facility: [facility] Address: [address] [place] [address] Performed By: #### U A ####[facility]CL[facility] [id number] [place] [address] [place] Leukocyte esterase Test strip Ql (U) Negative Normal Negative [facility] Comment on above: Order Comment: Speci men Type: URINE SPECIMENOrdering Facility: [facility] Address: [address] [place] [address] Performed By: #### U A ####[facility] LABIA [id number] [place] [address] [place] Nitrite Ql (U) Negative Normal Negative [facility] Comment on above: Order Comment: Speci men Type: URINE SPECIMENOrdering Facility: [facility] Address: [address] [place] [address] Performed By: #### U A ####[facility] LABIA [id number] [place] [address] [place] pH (U) 6.0 [pH] Normal <8.5 [facility] Comment on above: Order Comment: Speci men Type: URINE SPECIMENOrdering Facility: [facility] Address: [address] [place] [address] Performed By: #### U A ####[facility] LABIA [id number] [place] [address] [place] Protein (U) [Mass/Vol] Negative Normal Negative [facility] Comment on above: Order Comment: Speci men Type: URINE SPECIMENOrdering Facility: [facility] Address: [address] [place] [address] Performed By: #### U A ####[facility] LABCLIA [id number] [place] [address] [place] Specific gravity (U) [Rel density] 1.008 Normal 1.005-1.03 0 [facility] Comment on above: Order Comment: Speci men Type: URINE SPECIMENOrdering Facility: [facility] Address: [address] [place] [address] Performed By: #### U A ####[facility] LABCLIA [id number] [place] [address] [place] Urobilinogen Ql (U) 0.2 EU/dL Normal 0.2-1.0 EU/dL [facility] Comment on above: Order Comment: Speci men Type: URINE SPECIMENOrdering Facility: [facility] Address: [address] [place] [address] Performed By: #### U A ####[facility] LABIA [id number] [place] [address] [place] Basic metabolic 2000 panelon 08-27-2024 Anion gap [Moles/Vol] 12 mmol/L Normal 8-15 [facility] Comment on above: Order Comment: Speci men Type: BLOOD SPECIMENOrdering Facility: [facility] Address: [address] [place] [address] Performed By: #### 2 4321-2, 07592-7, , 7-1 ####[facility] LABCLIA [id number] [place] [address] [place] Calcium [Mass/Vol] 9.1 mg/dL Normal 8.5-10.2 [facility] Comment on above: Order Comment: Speci men Type: BLOOD SPECIMENOrdering Facility: [facility] Address: [address] [place] [address] Performed By: #### 2 4321-2, 53755-6, , 2776-1 ####[facility] LABIA [id number] [place] [address] [place] Chloride [Moles/Vol] 100 mmol/L Normal 98-107 [facility] Comment on above: Order Comment: Speci men Type: BLOOD SPECIMENOrdering Facility: [facility] Address: [address] [place] [address] Performed By: #### 2 4321-2, 07412-1, 09267-0, 2777-1 ####[facility] LABCLIA [id number] [place] [address] [place] CO2 [Moles/Vol] 23 mmol/L Normal 22-30 [facility] Comment on above: Order Comment: Speci men Type: BLOOD SPECIMENOrdering Facility: [facility] Address: [address] [place] [address] Performed By: #### 2 4321-2, 14202-2, , 2776- ####[facility] LABCLIA [id number] [place] [address] [place] Creatinine [Mass/Vol] 0.72 mg/dL Normal 0.58-0.96 [facility] Comment on above: Order Comment: Speci men Type: BLOOD SPECIMENOrdering Facility: [facility] Address: [address] [place] [address] Performed By: #### 2 4321-2, 67351-1, , 2776-09 ####[facility] LABIA [id number] [place] [address] [place] Creatinine and Glomerular filtration rate.predicted panel (S/P/Bld) 120 mL/min/1.73m??? Normal >=60 [facility] Comment on above: Order Comment: Speci men Type: BLOOD SPECIMENOrdering Facility: [facility] Address: [address] [place] [address] Result Comment: Cinthya mated Glomerular Filtration Rate (eGFR) is calculated using the 2020 CKD-EPI creatinine equation. This equation utilizes serum creatinine, sex, and age as parameters. The creatinine assay has traceable calibration to isotope dilution-mass spectrometry. Refer to KDIGO guidelines for clinical interpretation. In patients with unstable renal function, e.g. those with acute kidney injury, the eGFR may not accurately reflect actual GFR. Performed By: #### 2 4321-2, 32586-5, 84983-6, 2776- ####[facility] LABCLIA [id number] [place] [address] [place] Glucose [Mass/Vol] 97 mg/dL Normal 74-99 [facility] Comment on above: Order Comment: Speci men Type: BLOOD SPECIMENOrdering Facility: [facility] Address: [address] [place] [address] Result Comment: The [place] Diabetes [employer] (ADA) provides guidance for cutoff values for fasting glucose and random glucose. The ADA defines fasting as no caloric intake for at least 8 hours. Fasting plasma glucose results between 100 to 125 mg/dL indicate increased risk for diabetes (prediabetes).Fasting plasma glucose results greater than or equal to 126 mg/dL meet the criteria for diagnosis of diabetes. In the absence of unequivocal hyperglycemia, results should be confirmed by repeat testing. In a patient with classic symptoms of hyperglycemia or hyperglycemic crisis, random plasma glucose results greater than or equal to 200 mg/dL meet the criteria for diagnosis of diabetes.Reference: Standards of Medical Care in Diabetes 2016, [place] [employer]. Diabetes Care. 2016.39(Suppl 1). Performed By: #### 2 4321-2, 70027-5, , 2776-09 ####[facility] LABCLIA [id number] [place] [address] [place] Potassium [Moles/Vol] 4.1 mmol/L Normal 3.7-5.1 [facility] Comment on above: Order Comment: Speci men Type: BLOOD SPECIMENOrdering Facility: [facility] Address: [address] [place] [address] Performed By: #### 2 4321-2, 54767-4, , 2776-09 ####[facility] LABCLIA [id number] [place] [address] [place] Sodium [Moles/Vol] 135 mmol/L Low 136-144 [facility] Comment on above: Order Comment: Speci men Type: BLOOD SPECIMENOrdering Facility: [facility] Address: [address] [place] [address] Performed By: #### 2 4321-2, 30161-6, , 2776- ####[facility] LABCLIA [id number] [address] [address] [place] Urea nitrogen [Mass/Vol] 5 mg/dL Low 7-21 [facility] Comment on above: Order Comment: Speci men Type: BLOOD SPECIMENOrdering Facility: [facility] Address: [address] [place] [address] Performed By: #### 2 4321-2, 07303-6, , 2776-1 ####[facility] LABCLIA [id number] [place] [address] [place] CONSULTon 08-27-2024 CONSULT Normal [facility] Hepatic function 2000 panelo n 08-27-2024 Albumin [Mass/Vol] 3.8 g/dL Low 3.9-4.9 [facility] Comment on above: Order Comment: Speci men Type: BLOOD SPECIMENOrdering Facility: [facility] Address: [address] [place] [address] Performed By: #### 2 4321-2, 54700-1, , 277- ####[facility] LABIA [id number] [place] [address] [place] ALP [Catalytic activity/Vol] 56 U/L Normal 34-123 [facility] Comment on above: Order Comment: Speci men Type: BLOOD SPECIMENOrdering Facility: [facility] Address: [address] [place] [address] Performed By: #### 2 4321-2, 23234-0, , 277- ####[facility] LABIA [id number] [place] [address] [place] ALT [Catalytic activity/Vol] 49 U/L High 7-38 [facility] Comment on above: Order Comment: Speci men Type: BLOOD SPECIMENOrdering Facility: [facility] Address: [address] [place] [address] Performed By: #### 2 4321-2, 69577-5, , 2776-09 ####[facility] LABCLIA [id number] [place] [address] [place] AST [Catalytic activity/Vol] 35 U/L Normal 13-35 [facility] Comment on above: Order Comment: Speci men Type: BLOOD SPECIMENOrdering Facility: [facility] Address: [address] [place] [address] Performed By: #### 2 4321-2, 41038-7, , 2776-09 ####[facility] LABCLIA [id number] [place] [address] [place] Bilirubin [Mass/Vol] 0.3 mg/dL Normal 0.2-1.3 [facility] Comment on above: Order Comment: Speci men Type: BLOOD SPECIMENOrdering Facility: [facility] Address: [address] [place] [address] Performed By: #### 2 4321-2, 48165-7, , 2776-09 ####[facility] LABIA [id number] [place] [address] [place] Bilirubin.conjugated [Mass/Vol] mg/dL Normal <0.2 [facility] Comment on above: Order Comment: Speci men Type: BLOOD SPECIMENOrdering Facility: [facility] Address: [address] [place] [address] Result Comment: Resu lts may be falsely decreased due to interference from hemolysis. Suggest reorder as clinically indicated. Performed By: #### 2 4321-2, 69430-0, , 2776-09 ####[facility] LABIA [id number] [place] [address] [place] Protein [Mass/Vol] 6.9 g/dL Normal 6.3-8.0 [facility] Comment on above: Order Comment: Speci men Type: BLOOD SPECIMENOrdering Facility: [facility] Address: [address] [place] [address] Performed By: #### 2 4321-2, 09273-1, 27419-4, 2776-1 ####[facility]CL[facility] [id number] [place] [id number] [place] Magnesium SerPl-mCncon 08-27 Magnesium [Mass/Vol] 2.4 mg/dL High 1.7-2.3 [facility] Comment on above: Order Comment: Speci men Type: BLOOD SPECIMENOrdering Facility: [facility] Address: [address] [place] [address] Performed By: #### 2 4321-2, 53050-8, , 2776-09 ####[facility]CLIA [id number] [place] [address] [place] NURSING PROGon 08-27-2024 NURSING PROG Normal [facility] NUTRITIONon 08-27-2024 NUTRITION Normal [facility] Phosphate SerPl-mCncon 08-27 Phosphate [Mass/Vol] 4.7 mg/dL Normal 2.7-4.8 [facility] Comment on above: Order Comment: Speci men Type: BLOOD SPECIMENOrdering Facility: [facility] Address: [address] [place] [address] Performed By: #### 2 4321-2, 02444-6, 20708-0, 2776- ####[facility]CL[facility] [id number] [place] [id number] [place] CBC W Auto Differential pane l (Bld)on 08-26-2024 Basophils (Bld) [#/Vol] 0.03 10*3/uL Normal <0.11 [facility] Comment on above: Order Comment: Speci men Type: BLOOD SPECIMENOrdering Facility: [facility] Address: [address] [place] [address] Performed By: #### 4 537-7, 72368-0 ####[facility]CL[facility] [id number] [place] [address] [place] Basophils/100 WBC (Bld) 0.4 % Normal [facility] Comment on above: Order Comment: Speci men Type: BLOOD SPECIMENOrdering Facility: [facility] Address: [address] [place] [address] Performed By: #### 4 537-7, 59023-2 ####[facility]CL[facility] [id number] [place] [address] [place] Differential cell count method Nom (Bld) Auto Normal [facility] Comment on above: Order Comment: Speci men Type: BLOOD SPECIMENOrdering Facility: [facility] Address: [address] [place] [address] Performed By: #### 4 537-7, 05452-6 ####[facility]CL[facility] [id number] [place] [address] [place] Eosinophils (Bld) [#/Vol] 0.11 10*3/uL Normal <0.46 [facility] Comment on above: Order Comment: Speci men Type: BLOOD SPECIMENOrdering Facility: [facility] Address: [address] [place] [address] Performed By: #### 4 537-7, 70898-8 ####[facility]CL[facility] [id number] [place] [address] [place] Eosinophils/100 WBC (Bld) 1.6 % Normal [facility] Comment on above: Order Comment: Speci men Type: BLOOD SPECIMENOrdering Facility: [facility] Address: [address] [place] [address] Performed By: #### 4 537-7, 54691-3 ####[facility]CL[facility] [id number] [place] [address] [place] Erythrocyte distribution width (RBC) [Ratio] 15.9 % High 11.5-15.0 [facility] Comment on above: Order Comment: Speci men Type: BLOOD SPECIMENOrdering Facility: [facility] Address: [address] [place] [address] Performed By: #### 4 537-7, 39393-3 ####[facility]CL[facility] [id number] [place] [address] [place] Hematocrit (Bld) [Volume fraction] 37.9 % Normal 36.0-46.0 [facility] Comment on above: Order Comment: Speci men Type: BLOOD SPECIMENOrdering Facility: [facility] Address: [address] [place] [address] Performed By: #### 4 537-7, 65794-4 ####[facility]IA [id number] [place] [address] [place] Hemoglobin (Bld) [Mass/Vol] 12.1 g/dL Normal 11.5-15.5 [facility] Comment on above: Order Comment: Speci men Type: BLOOD SPECIMENOrdering Facility: [facility] Address: [address] [place] [address] Performed By: #### 4 537-7, 07369-5 ####[facility] LABIA [id number] [place] [address] [place] Immature granulocytes (Bld) [#/Vol] 0.04 10*3/uL Normal <0.10 [facility] Comment on above: Order Comment: Speci men Type: BLOOD SPECIMENOrdering Facility: [facility] Address: [address] [place] [address] Performed By: #### 4 537-7, 02760-5 ####[facility]CL[facility] [id number] [place] [address] [place] Immature granulocytes/100 WBC (Bld) 0.6 % Normal [facility] Comment on above: Order Comment: Speci men Type: BLOOD SPECIMENOrdering Facility: [facility] Address: [address] [place] [address] Performed By: #### 4 537-7, 84624-8 ####[facility]CL[facility] [id number] [place] [address] [place] Lymphocytes (Bld) [#/Vol] 1.09 10*3/uL Normal 1.00-4.00 [facility] Comment on above: Order Comment: Speci men Type: BLOOD SPECIMENOrdering Facility: [facility] Address: [address] [place] [address] Performed By: #### 4 537-7, 37565-6 ####[facility] [id number] [place] [address] [place] Lymphocytes/100 WBC (Bld) 16.3 % Normal [facility] Comment on above: Order Comment: Speci men Type: BLOOD SPECIMENOrdering Facility: [facility] Address: [address] [place] [address] Performed By: #### 4 537-7, 83011-4 ####[facility] [id number] [place] [address] [place] MCH (RBC) [Entitic mass] 25.9 pg Low 26.0-34.0 [facility] Comment on above: Order Comment: Speci men Type: BLOOD SPECIMENOrdering Facility: [facility] Address: [address] [place] [address] Performed By: #### 4 537-7, 11066-8 ####[facility]CL[facility] [id number] [place] [address] [place] MCHC (RBC) [Mass/Vol] 31.9 g/dL Normal 30.5-36.0 [facility] Comment on above: Order Comment: Speci men Type: BLOOD SPECIMENOrdering Facility: [facility] Address: [address] [place] [address] Performed By: #### 4 537-7, 86166-0 ####[facility]CL[facility] [id number] [place] [address] [place] MCV (RBC) [Entitic vol] 81.2 fL Normal 80.0-100.0 [facility] Comment on above: Order Comment: Speci men Type: BLOOD SPECIMENOrdering Facility: [facility] Address: [address] [place] [address] Performed By: #### 4 537-7, 92562-7 ####[facility] [id number] [place] [address] [place] Monocytes (Bld) [#/Vol] 0.73 10*3/uL Normal <0.87 [facility] Comment on above: Order Comment: Speci men Type: BLOOD SPECIMENOrdering Facility: [facility] Address: [address] [place] [address] Performed By: #### 4 537-7, 11143-9 ####[facility] [id number] [place] [address] [place] Monocytes/100 WBC (Bld) 10.9 % Normal [facility] Comment on above: Order Comment: Speci men Type: BLOOD SPECIMENOrdering Facility: [facility] Address: [address] [place] [address] Performed By: #### 4 537-7, 13857-3 ####[facility]CL[facility] [id number] [place] [id number] [place] Neutrophils (Bld) [#/Vol] 4.69 10*3/uL Normal 1.45-7.50 [facility] Comment on above: Order Comment: Speci men Type: BLOOD SPECIMENOrdering Facility: [facility] Address: [address] [place] [address] Performed By: #### 4 537-7, 81625-1 ####[facility] [id number] [place] [address] [place] Neutrophils/100 WBC (Bld) 70.2 % Normal [facility] Comment on above: Order Comment: Speci men Type: BLOOD SPECIMENOrdering Facility: [facility] Address: [address] [place] [address] Performed By: #### 4 537-7, 25250-3 ####[facility] [id number] [place] [address] [place] Nucleated RBC (Bld) [#/Vol] 10*3/uL Normal <0.01 [facility] Comment on above: Order Comment: Speci men Type: BLOOD SPECIMENOrdering Facility: [facility] Address: [address] [place] [address] Performed By: #### 4 537-7, 52371-1 ####[facility] [id number] [place] [address] [place] Nucleated RBC/100 WBC (Bld) [Ratio] 0.0 /100 WBC Normal [facility] Comment on above: Order Comment: Speci men Type: BLOOD SPECIMENOrdering Facility: [facility] Address: [address] [place] [address] Performed By: #### 4 537-7, 48631-2 ####[facility] [id number] [place] [address] [place] Platelet mean volume (Bld) [Entitic vol] 9.0 fL Normal 9.0-12.7 [facility] Comment on above: Order Comment: Speci men Type: BLOOD SPECIMENOrdering Facility: [facility] Address: [address] [place] [address] Performed By: #### 4 537-7, 53456-1 ####[facility] [id number] [place] [address] [place] Platelets (Bld) [#/Vol] 281 10*3/uL Normal 150-400 [facility] Comment on above: Order Comment: Speci men Type: BLOOD SPECIMENOrdering Facility: [facility] Address: [address] [place] [address] Performed By: #### 4 537-7, 10670-8 ####[facility] [id number] [address] [address] [place] RBC (Bld) [#/Vol] 4.67 10*6/uL Normal 3.90-5.20 [facility] Comment on above: Order Comment: Speci men Type: BLOOD SPECIMENOrdering Facility: [facility] Address: [address] [place] [address] Performed By: #### 4 537-7, 68190-9 ####[facility] [id number] [place] [address] [place] WBC (Bld) [#/Vol] 6.69 10*3/uL Normal 3.70-11.00 [facility] Comment on above: Order Comment: Speci men Type: BLOOD SPECIMENOrdering Facility: [facility] Address: [address] [place] [address] Performed By: #### 4 537-7, 48252-3 ####[facility] [id number] [place] [address] [place] CONSULTon 08-26-2024 CONSULT Normal [facility] CONSULT PROGon 08-26-2024 CONSULT PROG Normal [facility] Comprehensive metabolic 2000 panelon 08-26-2024 Albumin [Mass/Vol] 4.1 g/dL Normal 3.9-4.9 [facility] Comment on above: Order Comment: Speci men Type: BLOOD SPECIMENOrdering Facility: [facility] Address: [address] [place] [address] Performed By: #### 2 777-1, 3016-3, 08966-3, 06795-6 ####[facility] [id number] [place] [address] [place] ALP [Catalytic activity/Vol] 59 U/L Normal 34-123 [facility] Comment on above: Order Comment: Speci men Type: BLOOD SPECIMENOrdering Facility: [facility] Address: [address] [place] [address] Performed By: #### 2 777-1, 3016-3, 96705-7, 79183-2 ####[facility] [id number] [place] [address] [place] ALT [Catalytic activity/Vol] 50 U/L High 7-38 [facility] Comment on above: Order Comment: Speci men Type: BLOOD SPECIMENOrdering Facility: [facility] Address: [address] [place] [address] Performed By: #### 2 777-1, 3016-3, 93258-6, 03334-0 ####[facility] [id number] [place] [address] [place] Anion gap [Moles/Vol] 16 mmol/L High 8-15 [facility] Comment on above: Order Comment: Speci men Type: BLOOD SPECIMENOrdering Facility: [facility] Address: [address] [place] [address] Performed By: #### 2 777-1, 3016-3, 87268-1, 73893-9 ####[facility] [id number] [place] [address] [place] AST [Catalytic activity/Vol] 34 U/L Normal 13-35 [facility] Comment on above: Order Comment: Speci men Type: BLOOD SPECIMENOrdering Facility: [facility] Address: [address] [place] [address] Performed By: #### 2 777-1, 3016-3, 14860-8, 22357-5 ####[facility] [id number] [place] [address] [place] Bilirubin [Mass/Vol] 0.4 mg/dL Normal 0.2-1.3 [facility] Comment on above: Order Comment: Speci men Type: BLOOD SPECIMENOrdering Facility: [facility] Address: [address] [place] [address] Performed By: #### 2 777-1, 3016-3, 26161-8, 63923-8 ####[facility] [id number] [place] [address] [place] Calcium [Mass/Vol] 9.3 mg/dL Normal 8.5-10.2 [facility] Comment on above: Order Comment: Speci men Type: BLOOD SPECIMENOrdering Facility: [facility] Address: [address] [place] [address] Performed By: #### 2 777-1, 3016-3, 42160-5, ####[facility] [id number] [place] [address] [place] Chloride [Moles/Vol] 97 mmol/L Low 98-107 [facility] Comment on above: Order Comment: Speci men Type: BLOOD SPECIMENOrdering Facility: [facility] Address: [address] [place] [address] Performed By: #### 2 777-1, 3016-3, 83633-4, 59928-6 ####[facility] [id number] [facility] [address] [place] CO2 [Moles/Vol] 23 mmol/L Normal 22-30 [facility] Comment on above: Order Comment: Speci men Type: BLOOD SPECIMENOrdering Facility: [facility] Address: [address] [place] [address] Performed By: #### 2 777-1, 3016-3, 46283-0, 69787-9 ####[facility]CL[facility] [id number] [place] [id number] [place] Creatinine [Mass/Vol] 0.68 mg/dL Normal 0.58-0.96 [facility] Comment on above: Order Comment: Alex mcgovern Type: BLOOD SPECIMENOrdering Facility: [facility] Address: [address] [place] [address] Performed By: #### 2 777-1, 3016-3, 01184-7, 65619-9 ####[facility] [id number] [place] [address] [place] Creatinine and Glomerular filtration rate.predicted panel (S/P/Bld) 125 mL/min/1.73m??? Normal >=60 [facility] Comment on above: Order Comment: Alex mcgovern Type: BLOOD SPECIMENOrdering Facility: [facility] Address: [address] [place] [address] Result Comment: Cinthya mated Glomerular Filtration Rate (eGFR) is calculated using the 2020 CKD-EPI creatinine equation. This equation utilizes serum creatinine, sex, and age as parameters. The creatinine assay has traceable calibration to isotope dilution-mass spectrometry. Refer to KDIGO guidelines for clinical interpretation. In patients with unstable renal function, e.g. those with acute kidney injury, the eGFR may not accurately reflect actual GFR. Performed By: #### 2 777-1, 3016-3, 39561-3, ####[facility] [id number] [place] [id number] [place] Glucose [Mass/Vol] 107 mg/dL High 74-99 [facility] Comment on above: Order Comment: Alex mcgovern Type: BLOOD SPECIMENOrdering Facility: [facility] Address: [address] [place] [address] Result Comment: The [place] [employer] (ADA) provides guidance for cutoff values for fasting glucose and random glucose. The ADA defines fasting as no caloric intake for at least 8 hours. Fasting plasma glucose results between 100 to 125 mg/dL indicate increased risk for diabetes (prediabetes).Fasting plasma glucose results greater than or equal to 126 mg/dL meet the criteria for diagnosis of diabetes. In the absence of unequivocal hyperglycemia, results should be confirmed by repeat testing. In a patient with classic symptoms of hyperglycemia or hyperglycemic crisis, random plasma glucose results greater than or equal to 200 mg/dL meet the criteria for diagnosis of diabetes.Reference: Standards of Medical Care in Diabetes 2016, [place] [employer]. Diabetes Care. 2016.39(Suppl 1). Performed By: #### 2 777-1, 3016-3, 84002-7, 67769-4 ####[facility] [id number] [place] [address] [place] Potassium [Moles/Vol] 3.3 mmol/L Low 3.7-5.1 [facility] Comment on above: Order Comment: Speci men Type: BLOOD SPECIMENOrdering Facility: [facility] Address: [address] [place] [address] Performed By: #### 2 777-1, 3016-3, 24130-2, ####[facility] [id number] [place] [address] [place] Protein [Mass/Vol] 7.2 g/dL Normal 6.3-8.0 [facility] Comment on above: Order Comment: Speci men Type: BLOOD SPECIMENOrdering Facility: [facility] Address: [address] [place] [address] Performed By: #### 2 777-1, 6-3, 02769-6, ####[facility]CL[facility] [id number] [facility] [place] [id number] [place] Sodium [Moles/Vol] 136 mmol/L Normal 136-144 [facility] Comment on above: Order Comment: Speci men Type: BLOOD SPECIMENOrdering Facility: [facility] Address: [address] [place] [address] Performed By: #### 2 777-1, 3016-3, 36162-6, 59791-9 ####[facility] [id number] [place] [id number] [place] Urea nitrogen [Mass/Vol] 7 mg/dL Normal 7-21 [facility] Comment on above: Order Comment: Speci men Type: BLOOD SPECIMENOrdering Facility: [facility] Address: [address] [place] [address] Performed By: #### 2 777-1, 3016-3, 15572-0, 31594-0 ####[facility] [id number] [place] [id number] [place] ECG COMPLETEon 08-26-2024 ECG COMPLETE Normal [facility] ESR Westergren method (Bld) [Velocity]on 08-26-2024 ESR (Bld) [Velocity] 21 mm/h High 0-20 [facility] Comment on above: Order Comment: Speci men Type: BLOOD SPECIMENOrdering Facility: [facility] Address: [address] [place] [address] Performed By: #### 4 537-7, 12409-3 ####[facility] [id number] [place] [address] [place] Magnesium SerPl-mCncon 08-26 Magnesium [Mass/Vol] 2.0 mg/dL Normal 1.7-2.3 [facility] Comment on above: Order Comment: Speci men Type: BLOOD SPECIMENOrdering Facility: [facility] Address: [address] [place] [address] Performed By: #### 2 777-1, 3016-3, 84347-5, 17544-4 ####[facility] [id number] [place] [id number] [place] Magnesium [Mass/Vol] 2.2 mg/dL Normal 1.7-2.3 [facility] Comment on above: Order Comment: Speci men Type: BLOOD SPECIMENOrdering Facility: [facility] Address: [address] [place] [address] Performed By: #### 2 4362-6, ####[facility] [id number] [address] [address] [place] NURSING PROGon 08-26-2024 NURSING PROG Normal [facility] NUTRITIONon 08-26-2024 NUTRITION Normal [facility] Phosphate SerPl-mCncon 08-26 Phosphate [Mass/Vol] 3.6 mg/dL Normal 2.7-4.8 [facility] Comment on above: Order Comment: Speci men Type: BLOOD SPECIMENOrdering Facility: [facility] Address: [address] [place] [address] Performed By: #### 2 777-1, 3016-3, 02761-1, ####[facility] [id number] [place] [id number] [place] Renal function 2000 panelon 08-26-2024 Albumin [Mass/Vol] 4.3 g/dL Normal 3.9-4.9 [facility] Comment on above: Order Comment: Speci men Type: BLOOD SPECIMENOrdering Facility: [facility] Address: [address] [place], [place] [address] Performed By: #### 2 4362-6, ####[facility] [id number] [place] [address] [place] Anion gap [Moles/Vol] 19 mmol/L High 8-15 [facility] Comment on above: Order Comment: Speci men Type: BLOOD SPECIMENOrdering Facility: [facility] Address: [address] [place], [place] [address] Performed By: #### 2 4362-6, ####[facility] [id number] [place] [id number] [place] Calcium [Mass/Vol] 9.2 mg/dL Normal 8.5-10.2 [facility] Comment on above: Order Comment: Speci men Type: BLOOD SPECIMENOrdering Facility: [facility] Address: [address] [place] [address] Performed By: #### 2 4362-6, ####[facility] [id number] [place] [address] [place] Chloride [Moles/Vol] 96 mmol/L Low 98-107 [facility] Comment on above: Order Comment: Speci men Type: BLOOD SPECIMENOrdering Facility: [facility] Address: [address] [place] [address] Performed By: #### 2 4362-6, ####[facility] [id number] [place] [address] [place] CO2 [Moles/Vol] 21 mmol/L Low 22-30 [facility] Comment on above: Order Comment: Speci men Type: BLOOD SPECIMENOrdering Facility: [facility] Address: [address] [place] [address] Performed By: #### 2 4362-6, ####[facility] [id number] [place] [address] [place] Creatinine [Mass/Vol] 0.76 mg/dL Normal 0.58-0.96 [facility] Comment on above: Order Comment: Speci men Type: BLOOD SPECIMENOrdering Facility: [facility] Address: [address] [place] [address] Performed By: #### 2 4362-6, ####[facility] [id number] [place] [address] [place] Creatinine and Glomerular filtration rate.predicted panel (S/P/Bld) 112 mL/min/1.73m??? Normal >=60 [facility] Comment on above: Order Comment: Speci men Type: BLOOD SPECIMENOrdering Facility: [facility] Address: [address] [place] [address] Result Comment: Cinthya mated Glomerular Filtration Rate (eGFR) is calculated using the 2020 CKD-EPI creatinine equation. This equation utilizes serum creatinine, sex, and age as parameters. The creatinine assay has traceable calibration to isotope dilution-mass spectrometry. Refer to KDIGO guidelines for clinical interpretation. In patients with unstable renal function, e.g. those with acute kidney injury, the eGFR may not accurately reflect actual GFR. Performed By: #### 2 4362-6, ####[facility] [id number] [place] [address] [place] Glucose [Mass/Vol] 135 mg/dL High 74-99 [facility] Comment on above: Order Comment: Alex mcgovern Type: BLOOD SPECIMENOrdering Facility: [facility] Address: [address] [place] [address] Result Comment: The [place] Diabetes [employer] (ADA) provides guidance for cutoff values for fasting glucose and random glucose. The ADA defines fasting as no caloric intake for at least 8 hours. Fasting plasma glucose results between 100 to 125 mg/dL indicate increased risk for diabetes (prediabetes).Fasting plasma glucose results greater than or equal to 126 mg/dL meet the criteria for diagnosis of diabetes. In the absence of unequivocal hyperglycemia, results should be confirmed by repeat testing. In a patient with classic symptoms of hyperglycemia or hyperglycemic crisis, random plasma glucose results greater than or equal to 200 mg/dL meet the criteria for diagnosis of diabetes.Reference: Standards of Medical Care in Diabetes 2016, [place] [employer]. Diabetes Care. 2016.39(Suppl 1). Performed By: #### 2 4362-6, ####[facility] [id number] [place] [id number] [place] Phosphate [Mass/Vol] 4.4 mg/dL Normal 2.7-4.8 [facility] Comment on above: Order Comment: Alex mcgovern Type: BLOOD SPECIMENOrdering Facility: [facility] Address: [address] [place] [address] Performed By: #### 2 4362-6, ####[facility] [id number] [place] [address] [place] Potassium [Moles/Vol] 3.8 mmol/L Normal 3.7-5.1 [facility] Comment on above: Order Comment: Speci men Type: BLOOD SPECIMENOrdering Facility: [facility] Address: [address] [place] [address] Performed By: #### 2 4362-6, 27478-6 ####[facility] [id number] [place] [address] [place] Sodium [Moles/Vol] 136 mmol/L Normal 136-144 [facility] Comment on above: Order Comment: Speci men Type: BLOOD SPECIMENOrdering Facility: [facility] Address: [address] [place] [address] Performed By: #### 2 4362-6, ####[facility] [id number] [place] [address] [place] Urea nitrogen [Mass/Vol] 11 mg/dL Normal 7-21 [facility] Comment on above: Order Comment: Speci men Type: BLOOD SPECIMENOrdering Facility: [facility] Address: [address] [place] [address] Performed By: #### 2 4362-6, 85282-0 ####[facility] [id number] [place] [address] [place] TOXICOLOGY SCREEN, ROUTINE U RINEon 08-26-2024 Amphetamines Confirm (U) [Mass/Vol] Negative Normal Negative [facility] Comment on above: Order Comment: Speci men Type: URINE SPECIMENOrdering Facility: [facility] Address: [address] [place] [address] Result Comment: Cuto ff threshold at 1000 ng/mL. Performed By: #### U TOX2 ####[facility] [id number] [id number] [address] [place] BARBITURATES, URINE Negative Normal Negative [facility] Comment on above: Order Comment: Speci men Type: URINE SPECIMENOrdering Facility: [facility] Address: [address] [place] [address] Result Comment: Cuto ff threshold at 200 ng/mL. Performed By: #### U TOX2 ####[facility] [id number] [place] [address] [place] BENZODIAZEPINES, UR Positive Abnormal Negative [facility] Comment on above: Order Comment: Speci men Type: URINE SPECIMENOrdering Facility: [facility] Address: [address] [place] [address] Result Comment: Cuto ff threshold at 200 ng/mL. Performed By: #### U TOX2 ####[facility] [id number] [place] [address] [place] Cannabinoids Screen Ql (U) Positive Abnormal Negative [facility] Comment on above: Order Comment: Speci men Type: URINE SPECIMENOrdering Facility: [facility] Address: [address] [place] [address] Result Comment: Cuto ff threshold at 50 ng/mL. Performed By: #### U TOX2 ####[facility] [id number] [place] [address] [place] Cocaine Ql (U) Negative Normal Negative [facility] Comment on above: Order Comment: Speci men Type: URINE SPECIMENOrdering Facility: [facility] Address: [address] [place] [address] Result Comment: Cuto ff threshold at 300 ng/mL. Performed By: #### U TOX2 ####[facility] [id number] [place] [address] [place] Ethanol (U) [Mass/Vol] <11 Normal <11 [facility] Comment on above: Order Comment: Speci men Type: URINE SPECIMENOrdering Facility: [facility] Address: [address] [place] [address] Performed By: #### U TOX2 ####[facility] [id number] [place] [address] [place] Opiates Screen Ql (U) Positive Abnormal Negative [facility] Comment on above: Order Comment: Speci men Type: URINE SPECIMENOrdering Facility: [facility] Address: [address] [place] [address] Result Comment: Cuto ff threshold at 300 ng/mL. Performed By: #### U TOX2 ####[facility] [id number] [place] [address] [place] oxyCODONE cutoff Screen (U) [Mass/Vol] Negative Normal Negative [facility] Comment on above: Order Comment: Speci men Type: URINE SPECIMENOrdering Facility: [facility] Address: [address] [place] [address] Result Comment: Cuto ff threshold at 100 ng/mL. Performed By: #### U TOX2 ####[facility] [id number] [place] [address] [place] Phencyclidine Ql (U) Negative Normal Negative [facility] Comment on above: Order Comment: Speci men Type: URINE SPECIMENOrdering Facility: [facility] Address: [address] [place] [address] Result Comment: Cuto ff threshold at 25 ng/mL. Performed By: #### U TOX2 ####[facility] [id number] [place] [address] [place] TSH SerPl-aCncon 08-26-2024 TSH Qn 1.990 m[IU]/L Normal 0.270-4.20 0 [facility] Comment on above: Order Comment: Speci men Type: BLOOD SPECIMENOrdering Facility: [facility] Address: [address] [place] [address] Result Comment: If t he patient is , TSH reference range varies by gestational period:First Trimester (weeks 9-12): 0.180-2.990 mIU/LSecond Trimester: 0.110-3.980 mIU/LThird Trimester: 0.480-4.710 mIU/LDamparo Nair et al. A Practical Approach for the Verifications and Determination of Site- and Trimester-Specific Reference Intervals for Thyroid Function tests in . Thyroid, 2019:29:3:412-420. Angelo E, et al. 2017 Guidelines of the [place] [employer] Association for the Diagnosis and Management of Thyroid Disease during and the . Thyroid, 2017:27:3:315-389. Performed By: #### 2 777-1, 3016-3, 68796-2, 09618-3 ####[facility] [id number] [place] [address] [place] Urinalysis complete panel (U )on 08-26-2024 BACTERIA UL 1059.5 uL High Negative [facility] Comment on above: Order Comment: Speci men Type: URINE SPECIMENOrdering Facility: [facility] Address: [address] [place] [address] Performed By: #### 2 4356-8 ####[facility] [id number] [place] [address] [place] Bilirubin Ql (U) Negative Normal Negative [facility] Comment on above: Order Comment: Speci men Type: URINE SPECIMENOrdering Facility: [facility] Address: [address] [place] [address] Performed By: #### 2 4356-8 ####[facility] [id number] [place] [address] [place] Clarity (Unsp spec) Clear Normal Clear [facility] Comment on above: Order Comment: Speci men Type: URINE SPECIMENOrdering Facility: [facility] Address: [address] [place] [address] Performed By: #### 2 4356-8 ####[facility] [id number] [place] [address] [place] Color (U) Yellow Normal Yellow [facility] Comment on above: Order Comment: Speci men Type: URINE SPECIMENOrdering Facility: [facility] Address: [address] [place] [address] Performed By: #### 2 4356-8 ####[facility] [id number] [place] [address] [place] Epithelial cells LM.HPF (Urine sed) [#/Area] Many Normal [facility] Comment on above: Order Comment: Speci men Type: URINE SPECIMENOrdering Facility: [facility] Address: [address] [place] [address] Performed By: #### 2 4356-8 ####[facility] [id number] [place] [address] [place] Glucose Test strip (U) [Mass/Vol] Negative Normal Negative [facility] Comment on above: Order Comment: Speci men Type: URINE SPECIMENOrdering Facility: [facility] Address: [address] [place] [address] Performed By: #### 2 4356-8 ####[facility] [id number] [place] [address] [place] Hemoglobin Ql (U) Negative Normal Negative [facility] Comment on above: Order Comment: Speci men Type: URINE SPECIMENOrdering Facility: [facility] Address: [address] [place] [address] Performed By: #### 2 4356-8 ####[facility] [id number] [place] [address] [place] Hyaline casts (Urine sed) [#/Area] 1-3 /LPF Abnormal 0 /LPF [facility] Comment on above: Order Comment: Speci men Type: URINE SPECIMENOrdering Facility: [facility] Address: [address] [place] [address] Performed By: #### 2 4356-8 ####[facility] [id number] [place] [address] [place] Ketones Ql (U) 3+ Abnormal Negative [facility] Comment on above: Order Comment: Speci men Type: URINE SPECIMENOrdering Facility: [facility] Address: [address] [place] [address] Performed By: #### 2 4356-8 ####[facility] [id number] [place] [address] [place] Leukocyte esterase Test strip Ql (U) Negative Normal Negative [facility] Comment on above: Order Comment: Speci men Type: URINE SPECIMENOrdering Facility: [facility] Address: [address] [place] [address] Performed By: #### 2 4356-8 ####[facility] [id number] [place] [address] [place] Nitrite Ql (U) Negative Normal Negative [facility] Comment on above: Order Comment: Speci men Type: URINE SPECIMENOrdering Facility: [facility] Address: [address] [place] [address] Performed By: #### 2 4356-8 ####[facility] [id number] [place] [address] [place] pH (U) 6.0 [pH] Normal <8.5 [facility] Comment on above: Order Comment: Speci men Type: URINE SPECIMENOrdering Facility: [facility] Address: [address] [place] [address] Performed By: #### 2 4356-8 ####[facility] [id number] [place] [address] [place] Protein (U) [Mass/Vol] Negative Normal Negative [facility] Comment on above: Order Comment: Speci men Type: URINE SPECIMENOrdering Facility: [facility] Address: [address] [place] [address] Performed By: #### 2 4356-8 ####[facility] [id number] [place] [address] [place] RBC LM.HPF (Urine sed) [#/Area] 0-2 /HPF Normal 0-2 /HPF [facility] Comment on above: Order Comment: Speci men Type: URINE SPECIMENOrdering Facility: [facility] Address: [address] [place] [address] Performed By: #### 2 4356-8 ####[facility] [id number] [place] [address] [place] Specific gravity (U) [Rel density] 1.016 Normal 1.005-1.03 0 [facility] Comment on above: Order Comment: Speci men Type: URINE SPECIMENOrdering Facility: [facility] Address: [address] [place] [address] Performed By: #### 2 4356-8 ####[facility] [id number] [place] [address] [place] Urobilinogen Ql (U) 0.2 EU/dL Normal 0.2-1.0 EU/dL [facility] Comment on above: Order Comment: Speci men Type: URINE SPECIMENOrdering Facility: [facility] Address: [address] [place] [address] Performed By: #### 2 4356-8 ####[facility] [id number] [place] [address] [place] WBC LM.HPF (Urine sed) [#/Area] 0-5 /HPF Normal 0-5 /HPF [facility] Comment on above: Order Comment: Speci men Type: URINE SPECIMENOrdering Facility: [facility] Address: [address] [place] [address] Performed By: #### 2 4356-8 ####[facility] [id number] [place] [address] [place] CASE MANAGEMon 08-25-2024 CASE MANAGEM Normal [facility] CONSULT PROGon 08-25-2024 CONSULT PROG Normal [facility] Renal function 2000 panelon 08-25-2024 Albumin [Mass/Vol] 4.0 g/dL Normal 3.9-4.9 [facility] Comment on above: Order Comment: Speci men Type: BLOOD SPECIMENOrdering Facility: [facility] Address: [address] [place] [address] Performed By: #### 2 4362-6 ####[facility] [id number] [place] [address] [place] Anion gap [Moles/Vol] 15 mmol/L Normal 8-15 [facility] Comment on above: Order Comment: Speci men Type: BLOOD SPECIMENOrdering Facility: [facility] Address: [address] [place] [address] Performed By: #### 2 4362-6 ####[facility] [id number] [place] [address] [place] Calcium [Mass/Vol] 9.6 mg/dL Normal 8.5-10.2 [facility] Comment on above: Order Comment: Speci men Type: BLOOD SPECIMENOrdering Facility: [facility] Address: [address] [place] [address] Performed By: #### 2 4362-6 ####[facility] [id number] [place] [address] [place] Chloride [Moles/Vol] 97 mmol/L Low 98-107 [facility] Comment on above: Order Comment: Speci men Type: BLOOD SPECIMENOrdering Facility: [facility] Address: [address] [place] [address] Performed By: #### 2 4362-6 ####[facility] [id number] [place] [address] [place] CO2 [Moles/Vol] 25 mmol/L Normal 22-30 [facility] Comment on above: Order Comment: Speci men Type: BLOOD SPECIMENOrdering Facility: [facility] Address: [address] [place] [address] Performed By: #### 2 4362-6 ####[facility] [id number] [place] [address] [place] Creatinine [Mass/Vol] 0.79 mg/dL Normal 0.58-0.96 [facility] Comment on above: Order Comment: Speci men Type: BLOOD SPECIMENOrdering Facility: [facility] Address: [address] [place] [address] Performed By: #### 2 4362-6 ####[facility] [id number] [address] [place] Creatinine and Glomerular filtration rate.predicted panel (S/P/Bld) 107 mL/min/1.73m??? Normal >=60 [facility] Comment on above: Order Comment: Speci men Type: BLOOD SPECIMENOrdering Facility: [facility] Address: [address] [place] [address] Result Comment: Cinthya mated Glomerular Filtration Rate (eGFR) is calculated using the 2020 CKD-EPI creatinine equation. This equation utilizes serum creatinine, sex, and age as parameters. The creatinine assay has traceable calibration to isotope dilution-mass spectrometry. Refer to KDIGO guidelines for clinical interpretation. In patients with unstable renal function, e.g. those with acute kidney injury, the eGFR may not accurately reflect actual GFR. Performed By: #### 2 4362-6 ####[facility] [id number] [place] [address] [place] Glucose [Mass/Vol] 97 mg/dL Normal 74-99 [facility] Comment on above: Order Comment: Speci men Type: BLOOD SPECIMENOrdering Facility: [facility] Address: [address] [place] [address] Result Comment: The [place] Diabetes Association (ADA) provides guidance for cutoff values for fasting glucose and random glucose. The ADA defines fasting as no caloric intake for at least 8 hours. Fasting plasma glucose results between 100 to 125 mg/dL indicate increased risk for diabetes (prediabetes).Fasting plasma glucose results greater than or equal to 126 mg/dL meet the criteria for diagnosis of diabetes. In the absence of unequivocal hyperglycemia, results should be confirmed by repeat testing. In a patient with classic symptoms of hyperglycemia or hyperglycemic crisis, random plasma glucose results greater than or equal to 200 mg/dL meet the criteria for diagnosis of diabetes.Reference: Standards of Medical Care in Diabetes 2016, [place] [employer] Association. Diabetes Care. 2016.39(Suppl 1). Performed By: #### 2 4362-6 ####[facility] [id number] [place] [address] [place] Phosphate [Mass/Vol] 5.2 mg/dL High 2.7-4.8 [facility] Comment on above: Order Comment: Speci men Type: BLOOD SPECIMENOrdering Facility: [facility] Address: [address] [place] [address] Result Comment: Resu lt rechecked. Performed By: #### 2 4362-6 ####[facility] [id number] [place] [address] [place] Potassium [Moles/Vol] 3.6 mmol/L Low 3.7-5.1 [facility] Comment on above: Order Comment: Speci men Type: BLOOD SPECIMENOrdering Facility: [facility] Address: [address] [place] [address] Performed By: #### 2 4362-6 ####[facility] [id number] [place] [address] [place] Sodium [Moles/Vol] 137 mmol/L Normal 136-144 [facility] Comment on above: Order Comment: Speci men Type: BLOOD SPECIMENOrdering Facility: [facility] Address: [address] [place] [address] Performed By: #### 2 4362-6 ####[facility] [id number] [place] [address] [place] Urea nitrogen [Mass/Vol] 9 mg/dL Normal 7-21 [facility] Comment on above: Order Comment: Speci men Type: BLOOD SPECIMENOrdering Facility: [facility] Address: [facility] [place] [id number] Performed By: #### 2 4362-6 ####[facility] [id number] [place] [address] [place] XR ABDOMEN 1V SUPINEon 08-25 XR ABDOMEN 1V SUPINE [facility] CONSULT PROGon 08-24-2024 CONSULT PROG Normal [facility] CONSULT PROG Normal [facility] CONSULT PROG Normal [facility] NUTRITIONon 08-24-2024 NUTRITION Normal [facility] Renal function 2000 panelon 08-24-2024 Albumin [Mass/Vol] 4.4 g/dL Normal 3.9-4.9 [facility] Comment on above: Order Comment: Speci men Type: BLOOD SPECIMENOrdering Facility: [facility] Address: [address] [place] [id number] Performed By: #### 2 4362-6 ####[facility] [id number] [place] [address] [place] Anion gap [Moles/Vol] 14 mmol/L Normal 8-15 [facility] Comment on above: Order Comment: Speci men Type: BLOOD SPECIMENOrdering Facility: [facility] Address: [address] [place] [place] [id number] Performed By: #### 2 4362-6 ####[facility] [id number] [place] [id number] [place] Calcium [Mass/Vol] 9.9 mg/dL Normal 8.5-10.2 [facility] Comment on above: Order Comment: Speci men Type: BLOOD SPECIMENOrdering Facility: [facility] Address: [address] [place] [address] Performed By: #### 2 4362-6 ####[facility] [id number] [place] [address] [place] Chloride [Moles/Vol] 97 mmol/L Low 98-107 [facility] Comment on above: Order Comment: Speci men Type: BLOOD SPECIMENOrdering Facility: [facility] Address: [address] [place] [address] Performed By: #### 2 4362-6 ####[facility] [id number] [place] [address] [place] CO2 [Moles/Vol] 24 mmol/L Normal 22-30 [facility] Comment on above: Order Comment: Speci men Type: BLOOD SPECIMENOrdering Facility: [facility] Address: [address] [place] [address] Performed By: #### 2 4362-6 ####[facility] [id number] [place] [address] [place] Creatinine [Mass/Vol] 0.64 mg/dL Normal 0.58-0.96 [facility] Comment on above: Order Comment: Speci men Type: BLOOD SPECIMENOrdering Facility: [facility] Address: [address] [place] [address] Performed By: #### 2 4362-6 ####[facility] [id number] [place] [address] [place] Creatinine and Glomerular filtration rate.predicted panel (S/P/Bld) 127 mL/min/1.73m??? Normal >=60 [facility] Comment on above: Order Comment: Speci men Type: BLOOD SPECIMENOrdering Facility: [facility] Address: [address] [place] [address] Result Comment: Cinthya mated Glomerular Filtration Rate (eGFR) is calculated using the 2020 CKD-EPI creatinine equation. This equation utilizes serum creatinine, sex, and age as parameters. The creatinine assay has traceable calibration to isotope dilution-mass spectrometry. Refer to KDIGO guidelines for clinical interpretation. In patients with unstable renal function, e.g. those with acute kidney injury, the eGFR may not accurately reflect actual GFR. Performed By: #### 2 4362-6 ####[facility] [id number] [place] [address] [place] Glucose [Mass/Vol] 123 mg/dL High 74-99 [facility] Comment on above: Order Comment: Alex mcgovern Type: BLOOD SPECIMENOrdering Facility: [facility] Address: [address] [place] [address] Result Comment: The [place] Diabetes Association (ADA) provides guidance for cutoff values for fasting glucose and random glucose. The ADA defines fasting as no caloric intake for at least 8 hours. Fasting plasma glucose results between 100 to 125 mg/dL indicate increased risk for diabetes (prediabetes).Fasting plasma glucose results greater than or equal to 126 mg/dL meet the criteria for diagnosis of diabetes. In the absence of unequivocal hyperglycemia, results should be confirmed by repeat testing. In a patient with classic symptoms of hyperglycemia or hyperglycemic crisis, random plasma glucose results greater than or equal to 200 mg/dL meet the criteria for diagnosis of diabetes.Reference: Standards of Medical Care in Diabetes 2016, [place] [employer]. Diabetes Care. 2016.39(Suppl 1). Performed By: #### 2 4362-6 ####[facility] [id number] [place] [id number] [place] Phosphate [Mass/Vol] 2.8 mg/dL Normal 2.7-4.8 [facility] Comment on above: Order Comment: Alex mcgovern Type: BLOOD SPECIMENOrdering Facility: [facility] Address: [address] [place] [address] Performed By: #### 2 4362-6 ####[facility] [id number] [place] [id number] [place] Potassium [Moles/Vol] 4.2 mmol/L Normal 3.7-5.1 [facility] Comment on above: Order Comment: Speci men Type: BLOOD SPECIMENOrdering Facility: [facility] Address: [address] [place] [address] Performed By: #### 2 4362-6 ####[facility] [id number] [place] [address] [place] Sodium [Moles/Vol] 135 mmol/L Low 136-144 [facility] Comment on above: Order Comment: Speci men Type: BLOOD SPECIMENOrdering Facility: [facility] Address: [address] [place] [address] Performed By: #### 2 4362-6 ####[facility] [id number] [place] [address] [place] Urea nitrogen [Mass/Vol] 7 mg/dL Normal 7-21 [facility] Comment on above: Order Comment: Speci men Type: BLOOD SPECIMENOrdering Facility: [facility] Address: [address] [place] [address] Performed By: #### 2 4362-6 ####[facility] [id number] [place] [address] [place] BRIEF OP NOTon 08-23-2024 BRIEF OP NOT Normal [facility] CT INJ SI JOINT BIon 024 CT INJ SI JOINT BI Normal [facility] HISTORY PHYSICALon HISTORY PHYSICAL Normal [facility] NURSING PROGon 08-23-2024 NURSING PROG Normal [facility] PT EDon 08-23-2024 PT ED Normal [facility] PT panel Coag (PPP)on 2023 INR Coag (PPP) [Relative time] 1.0 {INR} Normal 0.9-1.3 [facility] Comment on above: Order Comment: Speci men Type: BLOOD SPECIMENOrdering Facility: [facility] Address: [address] [place] [address] Result Comment: Tana min K Antagonist (VKA) Therapeutic Range: INR 2 to 3 (Target INR of 2.5)Note: For patients treated with VKA drugs, such as warfarin, the [place] [employer] 2012 Guideline recommends a therapeutic INR range of 2 to 3 (target INR of 2.5). This recommendation includes high-risk patients with antiphospholipid syndrome with previous arterial or venous thromboembolism, current-generation mechanical or bioprosthetic aortic heart valve replacement.Note: Patients with mechanical aortic valve replacement and additional risk factors for thromboembolic events (atrial fibrillation, previous thromboembolism, LV dysfunction, hypercoagulable conditions) or an older generation mechanical AVR (i.e., ball in-Cage) or any mechanical MVR should have a INR therapeutic range of 2.5 to 3.5 (target INR of 3).Sarah MOJICA, et al. Chest 2012, 141:7S-47SFlorentino RA, et al. [facility] 2017, 70: 252-289 Performed By: #### 3 4528-0 ####[facility] [id number] [place] [address] [place] PT Coag (PPP) [Time] 10.4 s Normal 9.7-13.0 [facility] Comment on above: Order Comment: Speci men Type: BLOOD SPECIMENOrdering Facility: [facility] Address: [address] [place] [address] Performed By: #### 3 4528-0 ####[facility] [id number] [place] [address] [place] Renal function 2000 panelon 08-23-2024 Albumin [Mass/Vol] 4.2 g/dL Normal 3.9-4.9 [facility] Comment on above: Order Comment: Speci men Type: BLOOD SPECIMENOrdering Facility: [facility] Address: [address] [place] [address] Performed By: #### 2 4362-6 ####[facility] [id number] [place] [address] [place] Anion gap [Moles/Vol] 14 mmol/L Normal 8-15 [facility] Comment on above: Order Comment: Speci men Type: BLOOD SPECIMENOrdering Facility: [facility] Address: [address] [place] [address] Performed By: #### 2 4362-6 ####[facility] [id number] [place] [address] [place] Calcium [Mass/Vol] 9.6 mg/dL Normal 8.5-10.2 [facility] Comment on above: Order Comment: Speci men Type: BLOOD SPECIMENOrdering Facility: [facility] Address: [address] [place] [address] Performed By: #### 2 4362-6 ####[facility] [id number] [place] [address] [place] Chloride [Moles/Vol] 98 mmol/L Normal 98-107 [facility] Comment on above: Order Comment: Speci men Type: BLOOD SPECIMENOrdering Facility: [facility] Address: [address] [place] [address] Performed By: #### 2 4362-6 ####[facility] [id number] [place] [address] [place] CO2 [Moles/Vol] 26 mmol/L Normal 22-30 [facility] Comment on above: Order Comment: Speci men Type: BLOOD SPECIMENOrdering Facility: [facility] Address: [address] [id number] Performed By: #### 2 4362-6 ####[facility] LABCLIA [id number] [place] [address] [place] Creatinine [Mass/Vol] 0.65 mg/dL Normal 0.58-0.96 [facility] Comment on above: Order Comment: Speci men Type: BLOOD SPECIMENOrdering Facility: [facility] Address: [address] [place], [place] [address] Performed By: #### 2 4362-6 ####[facility] LABCL[facility] [id number] [place] [address] [place] Creatinine and Glomerular filtration rate.predicted panel (S/P/Bld) 126 mL/min/1.73m??? Normal >=60 [facility] Comment on above: Order Comment: Alex mcgovern Type: BLOOD SPECIMENOrdering Facility: [facility] Address: [address] [place] [address] Result Comment: Cinthya mated Glomerular Filtration Rate (eGFR) is calculated using the 2020 CKD-EPI creatinine equation. This equation utilizes serum creatinine, sex, and age as parameters. The creatinine assay has traceable calibration to isotope dilution-mass spectrometry. Refer to KDIGO guidelines for clinical interpretation. In patients with unstable renal function, e.g. those with acute kidney injury, the eGFR may not accurately reflect actual GFR. Performed By: #### 2 4362-6 ####[facility] LABCLIA [id number] [place] [address] [place] Glucose [Mass/Vol] 113 mg/dL High 74-99 [facility] Comment on above: Order Comment: Alex mcgovern Type: BLOOD SPECIMENOrdering Facility: [facility] Address: [address] [place] [address] Result Comment: The [place] Diabetes Association (ADA) provides guidance for cutoff values for fasting glucose and random glucose. The ADA defines fasting as no caloric intake for at least 8 hours. Fasting plasma glucose results between 100 to 125 mg/dL indicate increased risk for diabetes (prediabetes).Fasting plasma glucose results greater than or equal to 126 mg/dL meet the criteria for diagnosis of diabetes. In the absence of unequivocal hyperglycemia, results should be confirmed by repeat testing. In a patient with classic symptoms of hyperglycemia or hyperglycemic crisis, random plasma glucose results greater than or equal to 200 mg/dL meet the criteria for diagnosis of diabetes.Reference: Standards of Medical Care in Diabetes 2016, [place] [employer]. Diabetes Care. 2016.39(Suppl 1). Performed By: #### 2 4362-6 ####[facility] LABCLIA [id number] [place] [id number] [place] Phosphate [Mass/Vol] 2.9 mg/dL Normal 2.7-4.8 [facility] Comment on above: Order Comment: Speci men Type: BLOOD SPECIMENOrdering Facility: [facility] Address: [address] [place] [address] Performed By: #### 2 4362-6 ####[facility] LABIA [id number] [place] [address] [place] Potassium [Moles/Vol] 4.3 mmol/L Normal 3.7-5.1 [facility] Comment on above: Order Comment: Speci men Type: BLOOD SPECIMENOrdering Facility: [facility] Address: [address] [place] [address] Performed By: #### 2 4362-6 ####[facility] LABIA [id number] [place] [address] [place] Sodium [Moles/Vol] 138 mmol/L Normal 136-144 [facility] Comment on above: Order Comment: Speci men Type: BLOOD SPECIMENOrdering Facility: [facility] Address: [address] [place] [address] Performed By: #### 2 4362-6 ####[facility] LABIA [id number] [place] [address] [place] Urea nitrogen [Mass/Vol] 8 mg/dL Normal 7-21 [facility] Comment on above: Order Comment: Speci men Type: BLOOD SPECIMENOrdering Facility: [facility] Address: [address] [place] [address] Performed By: #### 2 4362-6 ####[facility] LABIA [id number] [place] [id number] [place] CASE MANAGEMon 08-22-2024 CASE MANAGEM Normal [facility] CBC panel Auto (Bld)on 08-22 Erythrocyte distribution width (RBC) [Ratio] 16.1 % High 11.5-15.0 [facility] Comment on above: Order Comment: Speci men Type: BLOOD SPECIMENOrdering Facility: [facility] Address: [address] [place] [address] Performed By: #### 5 8410-2 ####[facility] LABCLIA [id number] [place] [address] [place] Hematocrit (Bld) [Volume fraction] 38.1 % Normal 36.0-46.0 [facility] Comment on above: Order Comment: Speci men Type: BLOOD SPECIMENOrdering Facility: [facility] Address: [address] [place] [address] Performed By: #### 5 8410-2 ####[facility] LABCL[facility] [id number] [place] [address] [place] Hemoglobin (Bld) [Mass/Vol] 11.8 g/dL Normal 11.5-15.5 [facility] Comment on above: Order Comment: Speci men Type: BLOOD SPECIMENOrdering Facility: [facility] Address: [address] [place] [address] Performed By: #### 5 8410-2 ####[facility] LABIA [id number] [place] [address] [place] MCH (RBC) [Entitic mass] 25.1 pg Low 26.0-34.0 [facility] Comment on above: Order Comment: Speci men Type: BLOOD SPECIMENOrdering Facility: [facility] Address: [address] [place] [address] Performed By: #### 5 8410-2 ####[facility] LABIA [id number] [place] [address] [place] MCHC (RBC) [Mass/Vol] 31.0 g/dL Normal 30.5-36.0 [facility] Comment on above: Order Comment: Speci men Type: BLOOD SPECIMENOrdering Facility: [facility] Address: [address] [place] [address] Performed By: #### 5 8410-2 ####[facility] LABCLIA [id number] [place] [address] [place] MCV (RBC) [Entitic vol] 81.1 fL Normal 80.0-100.0 [facility] Comment on above: Order Comment: Speci men Type: BLOOD SPECIMENOrdering Facility: [facility] Address: [address] [place] [address] Performed By: #### 5 8410-2 ####[facility] LABCLIA [id number] [place] [address] [place] Nucleated RBC (Bld) [#/Vol] 10*3/uL Normal <0.01 [facility] Comment on above: Order Comment: Speci men Type: BLOOD SPECIMENOrdering Facility: [facility] Address: [address] [place] [address] Performed By: #### 5 8410-2 ####[facility] LABCL[facility] [id number] [place] [address] [place] Platelet mean volume (Bld) [Entitic vol] 9.4 fL Normal 9.0-12.7 [facility] Comment on above: Order Comment: Speci men Type: BLOOD SPECIMENOrdering Facility: [facility] Address: [address] [place] [address] Performed By: #### 5 8410-2 ####[facility] LABCLIA [id number] [place] [address] [place] Platelets (Bld) [#/Vol] 242 10*3/uL Normal 150-400 [facility] Comment on above: Order Comment: Speci men Type: BLOOD SPECIMENOrdering Facility: [facility] Address: [address] [place] [address] Performed By: #### 5 8410-2 ####[facility] LABCLIA [id number] [address] [address] [place] RBC (Bld) [#/Vol] 4.70 10*6/uL Normal 3.90-5.20 [facility] Comment on above: Order Comment: Speci men Type: BLOOD SPECIMENOrdering Facility: [facility] Address: [address] [place] [address] Performed By: #### 5 8410-2 ####[facility] LABCLIA [id number] [place] [address] [place] WBC (Bld) [#/Vol] 4.98 10*3/uL Normal 3.70-11.00 [facility] Comment on above: Order Comment: Speci men Type: BLOOD SPECIMENOrdering Facility: [facility] Address: [address] [place] [address] Performed By: #### 5 8410-2 ####[facility] LABIA [id number] [place] [address] [place] Magnesium SerPl-ncon 08-22 Magnesium [Mass/Vol] 2.3 mg/dL Normal 1.7-2.3 [facility] Comment on above: Order Comment: Speci men Type: BLOOD SPECIMENOrdering Facility: [facility] Address: [address] [place] [address] Performed By: #### 2 4362-6, 93327-0 ####[facility] LABCLIA [id number] [address] [address] [place] Renal function 2000 panelon 08-22-2024 Albumin [Mass/Vol] 3.9 g/dL Normal 3.9-4.9 [facility] Comment on above: Order Comment: Speci men Type: BLOOD SPECIMENOrdering Facility: [facility] Address: [address] [place] [address] Performed By: #### 2 4362-6, 33921-3 ####[facility] LABCLIA [id number] [address] [place] [address] [place] Anion gap [Moles/Vol] 13 mmol/L Normal 8-15 [facility] Comment on above: Order Comment: Speci men Type: BLOOD SPECIMENOrdering Facility: [facility] Address: [address] [place] [address] Performed By: #### 2 4362-6, ####[facility] LABCLIA [id number] [place] [address] [place] Calcium [Mass/Vol] 9.3 mg/dL Normal 8.5-10.2 [facility] Comment on above: Order Comment: Speci men Type: BLOOD SPECIMENOrdering Facility: [facility] Address: [address] [place] [address] Performed By: #### 2 4362-6, ####[facility] LABIA [id number] [place] [address] [place] Chloride [Moles/Vol] 97 mmol/L Low 98-107 [facility] Comment on above: Order Comment: Speci men Type: BLOOD SPECIMENOrdering Facility: [facility] Address: [address] [place] [address] Performed By: #### 2 4362-6, ####[facility] LABCLIA [id number] [place] [address] [place] CO2 [Moles/Vol] 29 mmol/L Normal 22-30 [facility] Comment on above: Order Comment: Speci men Type: BLOOD SPECIMENOrdering Facility: [facility] Address: [address] [place] [address] Performed By: #### 2 4362-6, ####[facility] LABCLIA [id number] [address] [place] [id number] [place] Creatinine [Mass/Vol] 0.70 mg/dL Normal 0.58-0.96 [facility] Comment on above: Order Comment: Alex mcgovern Type: BLOOD SPECIMENOrdering Facility: [facility] Address: [address] [place] [address] Performed By: #### 2 4362-6, ####[facility] LABCLIA [id number] [place] [address] [place] Creatinine and Glomerular filtration rate.predicted panel (S/P/Bld) 124 mL/min/1.73m??? Normal >=60 [facility] Comment on above: Order Comment: Alex mcgovern Type: BLOOD SPECIMENOrdering Facility: [facility] Address: [address] [place] [address] Result Comment: Cinthya mated Glomerular Filtration Rate (eGFR) is calculated using the 2020 CKD-EPI creatinine equation. This equation utilizes serum creatinine, sex, and age as parameters. The creatinine assay has traceable calibration to isotope dilution-mass spectrometry. Refer to KDIGO guidelines for clinical interpretation. In patients with unstable renal function, e.g. those with acute kidney injury, the eGFR may not accurately reflect actual GFR. Performed By: #### 2 4362-6, ####[facility] LABCLIA [id number] [place] [address] [place] Glucose [Mass/Vol] 112 mg/dL High 74-99 [facility] Comment on above: Order Comment: Alex mcgovern Type: BLOOD SPECIMENOrdering Facility: [facility] Address: [address] [place] [address] Result Comment: The [place] Diabetes [employer] (ADA) provides guidance for cutoff values for fasting glucose and random glucose. The ADA defines fasting as no caloric intake for at least 8 hours. Fasting plasma glucose results between 100 to 125 mg/dL indicate increased risk for diabetes (prediabetes).Fasting plasma glucose results greater than or equal to 126 mg/dL meet the criteria for diagnosis of diabetes. In the absence of unequivocal hyperglycemia, results should be confirmed by repeat testing. In a patient with classic symptoms of hyperglycemia or hyperglycemic crisis, random plasma glucose results greater than or equal to 200 mg/dL meet the criteria for diagnosis of diabetes.Reference: Standards of Medical Care in Diabetes 2016, [place] [employer]. Diabetes Care. 2016.39(Suppl 1). Performed By: #### 2 4362-6, ####[facility] LABCLIA [id number] [address] [address] [place] Phosphate [Mass/Vol] 4.0 mg/dL Normal 2.7-4.8 [facility] Comment on above: Order Comment: Speci men Type: BLOOD SPECIMENOrdering Facility: [facility] Address: [address] [place], [place] [address] Performed By: #### 2 4362-6, ####[facility] LABIA [id number] [address] [id number] [place] Potassium [Moles/Vol] 3.2 mmol/L Low 3.7-5.1 [facility] Comment on above: Order Comment: Speci men Type: BLOOD SPECIMENOrdering Facility: [facility] Address: [address] [place], [place] [address] Performed By: #### 2 4362-6, ####[facility] LABIA [id number] [place] [id number] [place] Sodium [Moles/Vol] 139 mmol/L Normal 136-144 [facility] Comment on above: Order Comment: Speci men Type: BLOOD SPECIMENOrdering Facility: [facility] Address: [address] [place] [address] Performed By: #### 2 4362-6, ####[facility] LABIA [id number] [address] [address] [place] Urea nitrogen [Mass/Vol] 8 mg/dL Normal 7-21 [facility] Comment on above: Order Comment: Speci men Type: BLOOD SPECIMENOrdering Facility: [facility] Address: [address] [place] [address] Performed By: #### 2 4362-6, 64885-3 ####[facility] LABIA [id number] [place] [address] [place] CBC panel Auto (Bld)on 08-21 Erythrocyte distribution width (RBC) [Ratio] 16.4 % High 11.5-15.0 [facility] Comment on above: Order Comment: Speci men Type: BLOOD SPECIMENOrdering Facility: [facility] Address: [address] [place] [address] Performed By: #### 5 8410-2 ####[facility] LABIA [id number] [place] [address] [place] Hematocrit (Bld) [Volume fraction] 41.6 % Normal 36.0-46.0 [facility] Comment on above: Order Comment: Speci men Type: BLOOD SPECIMENOrdering Facility: [facility] Address: [address] [place] [address] Performed By: #### 5 8410-2 ####[facility] LABIA [id number] [place] [address] [place] Hemoglobin (Bld) [Mass/Vol] 13.5 g/dL Normal 11.5-15.5 [facility] Comment on above: Order Comment: Speci men Type: BLOOD SPECIMENOrdering Facility: [facility] Address: [address] [place] [address] Performed By: #### 5 8410-2 ####[facility] LABIA [id number] [place] [address] [place] MCH (RBC) [Entitic mass] 26.2 pg Normal 26.0-34.0 [facility] Comment on above: Order Comment: Speci men Type: BLOOD SPECIMENOrdering Facility: [facility] Address: [address] [place] [address] Performed By: #### 5 8410-2 ####[facility] LABIA [id number] [place] [address] [place] MCHC (RBC) [Mass/Vol] 32.5 g/dL Normal 30.5-36.0 [facility] Comment on above: Order Comment: Speci men Type: BLOOD SPECIMENOrdering Facility: [facility] Address: [address] [place] [address] Performed By: #### 5 8410-2 ####[facility] LABCLIA [id number] [place] [address] [place] MCV (RBC) [Entitic vol] 80.6 fL Normal 80.0-100.0 [facility] Comment on above: Order Comment: Speci men Type: BLOOD SPECIMENOrdering Facility: [facility] Address: [address] [place] [address] Performed By: #### 5 8410-2 ####[facility] LABCLIA [id number] [place] [address] [place] Nucleated RBC (Bld) [#/Vol] 10*3/uL Normal <0.01 [facility] Comment on above: Order Comment: Speci men Type: BLOOD SPECIMENOrdering Facility: [facility] Address: [address] [place] [address] Performed By: #### 5 8410-2 ####[facility] LABIA [id number] [place] [address] [place] Platelet mean volume (Bld) [Entitic vol] 9.3 fL Normal 9.0-12.7 [facility] Comment on above: Order Comment: Speci men Type: BLOOD SPECIMENOrdering Facility: [facility] Address: [address] [place] [address] Performed By: #### 5 8410-2 ####[facility] LABCL[facility] [id number] [place] [address] [place] Platelets (Bld) [#/Vol] 350 10*3/uL Normal 150-400 [facility] Comment on above: Order Comment: Speci men Type: BLOOD SPECIMENOrdering Facility: [facility] Address: [address] [place] [address] Performed By: #### 5 8410-2 ####[facility]CL[facility] [id number] [place] [address] [place] RBC (Bld) [#/Vol] 5.16 10*6/uL Normal 3.90-5.20 [facility] Comment on above: Order Comment: Speci men Type: BLOOD SPECIMENOrdering Facility: [facility] Address: [address] [place] [address] Performed By: #### 5 8410-2 ####[facility]CL[facility] [id number] [place] [address] [place] WBC (Bld) [#/Vol] 8.22 10*3/uL Normal 3.70-11.00 [facility] Comment on above: Order Comment: Speci men Type: BLOOD SPECIMENOrdering Facility: [facility] Address: [address] [place] [address] Performed By: #### 5 8410-2 ####[facility]CL[facility] [id number] [place] [address] [place] Magnesium SerPl-mCncon 08-21 Magnesium [Mass/Vol] 2.1 mg/dL Normal 1.7-2.3 [facility] Comment on above: Order Comment: Speci men Type: BLOOD SPECIMENOrdering Facility: [facility] Address: [address] [place] [address] Performed By: #### 2 4362-6, 88864-3 ####[facility]CL[facility] [id number] [place] [address] [place] Renal function 2000 panelon 08-21-2024 Albumin [Mass/Vol] 4.3 g/dL Normal 3.9-4.9 [facility] Comment on above: Order Comment: Speci men Type: BLOOD SPECIMENOrdering Facility: [facility] Address: [address] [place], [place] [address] Performed By: #### 2 4362-6, ####[facility] LABCLIA [id number] [address] [address] [place] Anion gap [Moles/Vol] 15 mmol/L Normal 8-15 [facility] Comment on above: Order Comment: Speci men Type: BLOOD SPECIMENOrdering Facility: [facility] Address: [address] [place], [place] [address] Performed By: #### 2 4362-6, ####[facility]CL[facility] [id number] [place] [address] [place] Calcium [Mass/Vol] 9.4 mg/dL Normal 8.5-10.2 [facility] Comment on above: Order Comment: Speci men Type: BLOOD SPECIMENOrdering Facility: [facility] Address: [address] [place], [place] [address] Performed By: #### 2 4362-6, ####[facility] LABCL[facility] [id number] [place] [address] [place] Chloride [Moles/Vol] 97 mmol/L Low 98-107 [facility] Comment on above: Order Comment: Speci men Type: BLOOD SPECIMENOrdering Facility: [facility] Address: [address] [place], [place] [address] Performed By: #### 2 4362-6, ####[facility]CL[facility] [id number] [place] [id number] [place] CO2 [Moles/Vol] 25 mmol/L Normal 22-30 [facility] Comment on above: Order Comment: Speci men Type: BLOOD SPECIMENOrdering Facility: [facility] Address: [address] [place], [place] [address] Performed By: #### 2 4362-6, ####[facility]IA [id number] [place] [id number] [place] Creatinine [Mass/Vol] 0.71 mg/dL Normal 0.58-0.96 [facility] Comment on above: Order Comment: Specgaston mcgovern Type: BLOOD SPECIMENOrdering Facility: [facility] Address: [address] [place] [address] Performed By: #### 2 4362-6, ####[facility] LABIA [id number] [place] [address] [place] Creatinine and Glomerular filtration rate.predicted panel (S/P/Bld) 122 mL/min/1.73m??? Normal >=60 [facility] Comment on above: Order Comment: [facility] Type: BLOOD SPECIMENOrdering Facility: [facility] Address: [address] [place] [address] Result Comment: Cinthya mated Glomerular Filtration Rate (eGFR) is calculated using the 2020 CKD-EPI creatinine equation. This equation utilizes serum creatinine, sex, and age as parameters. The creatinine assay has traceable calibration to isotope dilution-mass spectrometry. Refer to KDIGO guidelines for clinical interpretation. In patients with unstable renal function, e.g. those with acute kidney injury, the eGFR may not accurately reflect actual GFR. Performed By: #### 2 4362-6, ####[facility]IA [id number] [place] [id number] [place] Glucose [Mass/Vol] 123 mg/dL High 74-99 [facility] Comment on above: Order Comment: Speci men Type: BLOOD SPECIMENOrdering Facility: [facility] Address: [address] [place] [address] Result Comment: The [place] Diabetes [employer] (ADA) provides guidance for cutoff values for fasting glucose and random glucose. The ADA defines fasting as no caloric intake for at least 8 hours. Fasting plasma glucose results between 100 to 125 mg/dL indicate increased risk for diabetes (prediabetes).Fasting plasma glucose results greater than or equal to 126 mg/dL meet the criteria for diagnosis of diabetes. In the absence of unequivocal hyperglycemia, results should be confirmed by repeat testing. In a patient with classic symptoms of hyperglycemia or hyperglycemic crisis, random plasma glucose results greater than or equal to 200 mg/dL meet the criteria for diagnosis of diabetes.Reference: Standards of Medical Care in Diabetes 2016, [place] [employer]. Diabetes Care. 2016.39(Suppl 1). Performed By: #### 2 4362-6, ####[facility]CL[facility] [id number] [place] [address] [place] Phosphate [Mass/Vol] 3.7 mg/dL Normal 2.7-4.8 [facility] Comment on above: Order Comment: Alex mcgovern Type: BLOOD SPECIMENOrdering Facility: [facility] Address: [address] [place] [address] Performed By: #### 2 4366, ####[facility] [id number] [place] [address] [place] Potassium [Moles/Vol] Normal [facility] [facility] Comment on above: Order Comment: Alex mcgovern Type: BLOOD SPECIMENOrdering Facility: [facility] Address: [address] [place] [address] Result Comment: Unab le to assay due to interference from hemolysis. Suggest reorder as clinically indicated. Performed By: #### 2 4366, ####[facility] [id number] [place] [address] [place] Sodium [Moles/Vol] 137 mmol/L Normal 136-144 [facility] Comment on above: Order Comment: Alex mcgovern Type: BLOOD SPECIMENOrdering Facility: [facility] Address: [address] [place] [address] Performed By: #### 2 436-6, ####[facility] LABCLIA [id number] [id number] [address] [place] Urea nitrogen [Mass/Vol] 7 mg/dL Normal 7-21 [facility] Comment on above: Order Comment: Speci men Type: BLOOD SPECIMENOrdering Facility: [facility] Address: [address] [place] [address] Performed By: #### 2 4362-6, 53156-7 ####[facility] LABCL[facility] [id number] [place] [address] [place] CBC panel Auto (Bld)on 08-20 Erythrocyte distribution width (RBC) [Ratio] 16.3 % High 11.5-15.0 [facility] Comment on above: Order Comment: Speci men Type: BLOOD SPECIMENOrdering Facility: [facility] Address: [address] [place] [address] Performed By: #### 5 8410-2 ####[facility]CL[facility] [id number] [place] [address] [place] Hematocrit (Bld) [Volume fraction] 40.3 % Normal 36.0-46.0 [facility] Comment on above: Order Comment: Speci men Type: BLOOD SPECIMENOrdering Facility: [facility] Address: [address] [place] [address] Performed By: #### 5 8410-2 ####[facility]CL[facility] [id number] [place] [address] [place] Hemoglobin (Bld) [Mass/Vol] 13.4 g/dL Normal 11.5-15.5 [facility] Comment on above: Order Comment: Speci men Type: BLOOD SPECIMENOrdering Facility: [facility] Address: [address] [place] [address] Performed By: #### 5 8410-2 ####[facility] LABCL[facility] [id number] [place] [address] [place] MCH (RBC) [Entitic mass] 26.4 pg Normal 26.0-34.0 [facility] Comment on above: Order Comment: Speci men Type: BLOOD SPECIMENOrdering Facility: [facility] Address: [address] [place] [address] Performed By: #### 5 8410-2 ####[facility] [id number] [place] [address] [place] MCHC (RBC) [Mass/Vol] 33.3 g/dL Normal 30.5-36.0 [facility] Comment on above: Order Comment: Speci men Type: BLOOD SPECIMENOrdering Facility: [facility] Address: [address] [place] [address] Performed By: #### 5 8410-2 ####[facility] [id number] [place] [address] [place] MCV (RBC) [Entitic vol] 79.3 fL Low 80.0-100.0 [facility] Comment on above: Order Comment: Speci men Type: BLOOD SPECIMENOrdering Facility: [facility] Address: [address] [place] [address] Performed By: #### 5 8410-2 ####[facility] [id number] [place] [address] [place] Nucleated RBC (Bld) [#/Vol] 10*3/uL Normal <0.01 [facility] Comment on above: Order Comment: Speci men Type: BLOOD SPECIMENOrdering Facility: [facility] Address: [address] [place] [address] Performed By: #### 5 8410-2 ####[facility] [id number] [place] [address] [place] Platelet mean volume (Bld) [Entitic vol] 9.3 fL Normal 9.0-12.7 [facility] Comment on above: Order Comment: Speci men Type: BLOOD SPECIMENOrdering Facility: [facility] Address: [address] [place] [address] Performed By: #### 5 8410-2 ####[facility]CL[facility] [id number] [place] [address] [place] Platelets (Bld) [#/Vol] 290 10*3/uL Normal 150-400 [facility] Comment on above: Order Comment: Speci men Type: BLOOD SPECIMENOrdering Facility: [facility] Address: [address] [place] [address] Performed By: #### 5 8410-2 ####[facility]CL[facility] [id number] [place] [address] [place] RBC (Bld) [#/Vol] 5.08 10*6/uL Normal 3.90-5.20 [facility] Comment on above: Order Comment: Speci men Type: BLOOD SPECIMENOrdering Facility: [facility] Address: [address] [place] [address] Performed By: #### 5 8410-2 ####[facility] [id number] [place] [address] [place] WBC (Bld) [#/Vol] 8.33 10*3/uL Normal 3.70-11.00 [facility] Comment on above: Order Comment: Speci men Type: BLOOD SPECIMENOrdering Facility: [facility] Address: [address] [place] [address] Performed By: #### 5 8410-2 ####[facility] [id number] [place] [address] [place] Magnesium SerPl-mCncon 08-20 Magnesium [Mass/Vol] 1.8 mg/dL Normal 1.7-2.3 [facility] Comment on above: Order Comment: Speci men Type: BLOOD SPECIMENOrdering Facility: [facility] Address: [address] [place] [address] Performed By: #### 1 9123-9, 41915-9 ####[facility] LABCL[facility] [id number] [place] [address] [place] Renal function 2000 panelon 08-20-2024 Albumin [Mass/Vol] 4.4 g/dL Normal 3.9-4.9 [facility] Comment on above: Order Comment: Speci men Type: BLOOD SPECIMENOrdering Facility: [facility] Address: [address] [place] [address] Performed By: #### 1 9123-9, 03409-7 ####[facility] LABCL[facility] [id number] [place] [address] [place] Anion gap [Moles/Vol] 17 mmol/L High 8-15 [facility] Comment on above: Order Comment: Speci men Type: BLOOD SPECIMENOrdering Facility: [facility] Address: [address] [place] [address] Performed By: #### 1 9123-9, 12582-9 ####[facility]CL[facility] [id number] [place] [address] [place] Calcium [Mass/Vol] 9.9 mg/dL Normal 8.5-10.2 [facility] Comment on above: Order Comment: Speci men Type: BLOOD SPECIMENOrdering Facility: [facility] Address: [address] [place] [address] Performed By: #### 1 9123-9, 26949-8 ####[facility]CL[facility] [id number] [place] [address] [place] Chloride [Moles/Vol] 98 mmol/L Normal 98-107 [facility] Comment on above: Order Comment: Speci men Type: BLOOD SPECIMENOrdering Facility: [facility] Address: [address] [place] [address] Performed By: #### 1 9123-9, 53940-0 ####[facility] LABCLIA [id number] [place] [id number] [place] CO2 [Moles/Vol] 22 mmol/L Normal 22-30 [facility] Comment on above: Order Comment: Speci men Type: BLOOD SPECIMENOrdering Facility: [facility] Address: [address] [place] [address] Performed By: #### 1 9123-9, 46285-9 ####[facility] LABCL[facility] [id number] [place] [address] [place] Creatinine [Mass/Vol] 0.68 mg/dL Normal 0.58-0.96 [facility] Comment on above: Order Comment: Speci men Type: BLOOD SPECIMENOrdering Facility: [facility] Address: [address] [place] [address] Performed By: #### 1 9123-9, 32541-7 ####[facility] LABCL[facility] [id number] [place] [address] [place] Creatinine and Glomerular filtration rate.predicted panel (S/P/Bld) 125 mL/min/1.73m??? Normal >=60 [facility] Comment on above: Order Comment: Speci men Type: BLOOD SPECIMENOrdering Facility: [facility] Address: [address] [place] [address] Result Comment: Cinthya mated Glomerular Filtration Rate (eGFR) is calculated using the 2020 CKD-EPI creatinine equation. This equation utilizes serum creatinine, sex, and age as parameters. The creatinine assay has traceable calibration to isotope dilution-mass spectrometry. Refer to KDIGO guidelines for clinical interpretation. In patients with unstable renal function, e.g. those with acute kidney injury, the eGFR may not accurately reflect actual GFR. Performed By: #### 1 9123-9, 83957-9 ####[facility]CL[facility] [id number] [place] [address] [place] Glucose [Mass/Vol] 111 mg/dL High 74-99 [facility] Comment on above: Order Comment: Speci men Type: BLOOD SPECIMENOrdering Facility: [facility] Address: [address] [place] [address] Result Comment: The [place] [employer] (ADA) provides guidance for cutoff values for fasting glucose and random glucose. The ADA defines fasting as no caloric intake for at least 8 hours. Fasting plasma glucose results between 100 to 125 mg/dL indicate increased risk for diabetes (prediabetes).Fasting plasma glucose results greater than or equal to 126 mg/dL meet the criteria for diagnosis of diabetes. In the absence of unequivocal hyperglycemia, results should be confirmed by repeat testing. In a patient with classic symptoms of hyperglycemia or hyperglycemic crisis, random plasma glucose results greater than or equal to 200 mg/dL meet the criteria for diagnosis of diabetes.Reference: Standards of Medical Care in Diabetes 2016, [place] [employer]. Diabetes Care. 2016.39(Suppl 1). Performed By: #### 1 9123-9, 53608-2 ####[facility] [id number] [place] [address] [place] Phosphate [Mass/Vol] 3.6 mg/dL Normal 2.7-4.8 [facility] Comment on above: Order Comment: Speci men Type: BLOOD SPECIMENOrdering Facility: [facility] Address: [address] [place] [address] Performed By: #### 1 9123-9, 62673-7 ####[facility] [id number] [place] [address] [place] Potassium [Moles/Vol] 3.0 mmol/L Low 3.7-5.1 [facility] Comment on above: Order Comment: Speci men Type: BLOOD SPECIMENOrdering Facility: [facility] Address: [address] [place] [address] Performed By: #### 1 9123-9, 40569-1 ####[facility] [id number] [place] [address] [place] Sodium [Moles/Vol] 137 mmol/L Normal 136-144 [facility] Comment on above: Order Comment: Speci men Type: BLOOD SPECIMENOrdering Facility: [facility] Address: [address] [place] [id number] Performed By: #### 1 9123-9, 70638-5 ####[facility] LABCL[facility] [id number] [place] [address] [place] Urea nitrogen [Mass/Vol] 5 mg/dL Low 7-21 [facility] Comment on above: Order Comment: Speci men Type: BLOOD SPECIMENOrdering Facility: [facility] Address: [address] [place] [address] Performed By: #### 1 9123-9, 54190-2 ####[facility] [id number] [place] [address] [place] CASE MANAGEMon 08-19-2024 CASE MANAGEM Normal [facility] Hepatic function 2000 panelo n 08-19-2024 Albumin [Mass/Vol] 3.9 g/dL Normal 3.9-4.9 [facility] Comment on above: Order Comment: Speci men Type: BLOOD SPECIMENOrdering Facility: [facility] Address: [address] [place] [address] Performed By: #### 2 4362-6, 12894-1 ####[facility] [id number] [place] [address] [place] ALP [Catalytic activity/Vol] 55 U/L Normal 34-123 [facility] Comment on above: Order Comment: Speci men Type: BLOOD SPECIMENOrdering Facility: [facility] Address: [address] [place] [address] Performed By: #### 2 4362-6, 14882-2 ####[facility] [id number] [place] [address] [place] ALT [Catalytic activity/Vol] 16 U/L Normal 7-38 [facility] Comment on above: Order Comment: Speci men Type: BLOOD SPECIMENOrdering Facility: [facility] Address: [address] [place] [address] Performed By: #### 2 4362-6, 48848-2 ####[facility]CL[facility] [id number] [place] [address] [place] AST [Catalytic activity/Vol] 15 U/L Normal 13-35 [facility] Comment on above: Order Comment: Speci men Type: BLOOD SPECIMENOrdering Facility: [facility] Address: [address] [place] [address] Performed By: #### 2 4362-6, 84124-0 ####[facility]CL[facility] [id number] [place] [address] [place] Bilirubin [Mass/Vol] 0.3 mg/dL Normal 0.2-1.3 [facility] Comment on above: Order Comment: Speci men Type: BLOOD SPECIMENOrdering Facility: [facility] Address: [address] [place] [address] Performed By: #### 2 436-6, 18716-7 ####[facility] [id number] [place] [address] [place] Bilirubin.conjugated [Mass/Vol] mg/dL Normal <0.2 [facility] Comment on above: Order Comment: Speci men Type: BLOOD SPECIMENOrdering Facility: [facility] Address: [address] [place] [address] Performed By: #### 2 4362-6, 98931-7 ####[facility] [id number] [place] [address] [place] Protein [Mass/Vol] 7.2 g/dL Normal 6.3-8.0 [facility] Comment on above: Order Comment: Speci men Type: BLOOD SPECIMENOrdering Facility: [facility] Address: [address] [place] [address] Performed By: #### 2 4362-6, 77430-5 ####[facility] [id number] [place] [address] [place] PT panel Coag (PPP)on 2023 INR Coag (PPP) [Relative time] 1.6 {INR} High 0.9-1.3 [facility] Comment on above: Order Comment: Alex mcgovern Type: BLOOD SPECIMENOrdering Facility: [facility] Address: [address] [place] [address] Result Comment: Tana min K Antagonist (VKA) Therapeutic Range: INR 2 to 3 (Target INR of 2.5)Note: For patients treated with VKA drugs, such as warfarin, the [place] [employer] 2012 Guideline recommends a therapeutic INR range of 2 to 3 (target INR of 2.5). This recommendation includes high-risk patients with antiphospholipid syndrome with previous arterial or venous thromboembolism, current-generation mechanical or bioprosthetic aortic heart valve replacement.Note: Patients with mechanical aortic valve replacement and additional risk factors for thromboembolic events (atrial fibrillation, previous thromboembolism, LV dysfunction, hypercoagulable conditions) or an older generation mechanical AVR (i.e., ball in-Cage) or any mechanical MVR should have a INR therapeutic range of 2.5 to 3.5 (target INR of 3).Sarah GH, et al. Chest 2012, 141:7S-47SNishimura RA, et al. [facility] 2017, 70: 252-289 Performed By: #### 3 4528-0 ####[facility] [id number] [place] [address] [place] PT Coag (PPP) [Time] 16.4 s High 9.7-13.0 [facility] Comment on above: Order Comment: Alex mcgovern Type: BLOOD SPECIMENOrdering Facility: [facility] Address: [address] [place] [id number] Performed By: #### 3 4528-0 ####[facility] [id number] [place] [address] [place] Renal function 2000 panelon 08-19-2024 Albumin [Mass/Vol] 4.0 g/dL Normal 3.9-4.9 [facility] Comment on above: Order Comment: Speci men Type: BLOOD SPECIMENOrdering Facility: [facility] Address: [address] [place] [id number] Performed By: #### 2 4362-6, 90141-9 ####[facility]CL[facility] [id number] [place] [id number] [place] Anion gap [Moles/Vol] 14 mmol/L Normal 8-15 [facility] Comment on above: Order Comment: Speci men Type: BLOOD SPECIMENOrdering Facility: [facility] Address: [address] [place], [place] [address] Performed By: #### 2 4362-6, 02793-9 ####[facility] [id number] [place] [address] [place] Calcium [Mass/Vol] 8.6 mg/dL Normal 8.5-10.2 [facility] Comment on above: Order Comment: Speci men Type: BLOOD SPECIMENOrdering Facility: [facility] Address: [address] [place], [place] [address] Performed By: #### 2 4362-6, 16557-1 ####[facility] [id number] [place] [address] [place] Chloride [Moles/Vol] 100 mmol/L Normal 98-107 [facility] Comment on above: Order Comment: Speci men Type: BLOOD SPECIMENOrdering Facility: [facility] Address: [address] [place], [place] [address] Performed By: #### 2 4362-6, 61477-4 ####[facility] [id number] [place] [address] [place] CO2 [Moles/Vol] 21 mmol/L Low 22-30 [facility] Comment on above: Order Comment: Speci men Type: BLOOD SPECIMENOrdering Facility: [facility] Address: [address] [place], [place] [address] Performed By: #### 2 4362-6, 92866-8 ####[facility] [id number] [place] [address] [place] Creatinine [Mass/Vol] 0.53 mg/dL Low 0.58-0.96 [facility] Comment on above: Order Comment: Speci men Type: BLOOD SPECIMENOrdering Facility: [facility] Address: [address] [place] [address] Performed By: #### 2 4362-6, 40077-2 ####[facility] [id number] [place] [address] [place] Creatinine and Glomerular filtration rate.predicted panel (S/P/Bld) 133 mL/min/1.73m??? Normal >=60 [facility] Comment on above: Order Comment: [facility] Type: BLOOD SPECIMENOrdering Facility: [facility] Address: [address] [place] [address] Result Comment: Cinthya mated Glomerular Filtration Rate (eGFR) is calculated using the 2020 CKD-EPI creatinine equation. This equation utilizes serum creatinine, sex, and age as parameters. The creatinine assay has traceable calibration to isotope dilution-mass spectrometry. Refer to KDIGO guidelines for clinical interpretation. In patients with unstable renal function, e.g. those with acute kidney injury, the eGFR may not accurately reflect actual GFR. Performed By: #### 2 4362-6, 24923-6 ####[facility] [id number] [place] [address] [place] Glucose [Mass/Vol] 120 mg/dL High 74-99 [facility] Comment on above: Order Comment: Speci men Type: BLOOD SPECIMENOrdering Facility: [facility] Address: [address] [place] [address] Result Comment: The [place] Diabetes [employer] (ADA) provides guidance for cutoff values for fasting glucose and random glucose. The ADA defines fasting as no caloric intake for at least 8 hours. Fasting plasma glucose results between 100 to 125 mg/dL indicate increased risk for diabetes (prediabetes).Fasting plasma glucose results greater than or equal to 126 mg/dL meet the criteria for diagnosis of diabetes. In the absence of unequivocal hyperglycemia, results should be confirmed by repeat testing. In a patient with classic symptoms of hyperglycemia or hyperglycemic crisis, random plasma glucose results greater than or equal to 200 mg/dL meet the criteria for diagnosis of diabetes.Reference: Standards of Medical Care in Diabetes 2016, [place] [employer]. Diabetes Care. 2016.39(Suppl 1). Performed By: #### 2 4362-6, 36869-2 ####[facility] [id number] [place] [address] [place] Phosphate [Mass/Vol] 2.1 mg/dL Low 2.7-4.8 [facility] Comment on above: Order Comment: Speci men Type: BLOOD SPECIMENOrdering Facility: [facility] Address: [address] [place] [address] Performed By: #### 2 43610-13, 16120-3 ####[facility] [id number] [place] [address] [place] Potassium [Moles/Vol] 3.4 mmol/L Low 3.7-5.1 [facility] Comment on above: Order Comment: Speci men Type: BLOOD SPECIMENOrdering Facility: [facility] Address: [address] [place] [address] Performed By: #### 2 4362-6, 48804-4 ####[facility] [id number] [place] [address] [place] Sodium [Moles/Vol] 135 mmol/L Low 136-144 [facility] Comment on above: Order Comment: Speci men Type: BLOOD SPECIMENOrdering Facility: [facility] Address: [address] [place] [address] Performed By: #### 2 4362-6, 11644-5 ####[facility] [id number] [place] [address] [place] Urea nitrogen [Mass/Vol] 4 mg/dL Low 7-21 [facility] Comment on above: Order Comment: Speci men Type: BLOOD SPECIMENOrdering Facility: [facility] Address: [address] [place] [address] Performed By: #### 2 4362-6, 82666-0 ####[facility] [id number] [place] [address] [place] XR ABDOMEN 1V SUPINEon 08-19 XR ABDOMEN 1V SUPINE Normal [facility] 25(OH)D3 SerPl-mCncon 2023 25-hydroxyvitamin D3 [Mass/Vol] 4.3 ng/mL Low 31.0-80.0 [facility] Comment on above: Order Comment: Speci men Type: BLOOD SPECIMENOrdering Facility: [facility] Address: [address] [place] [address] Performed By: #### 1 989-3 ####[facility] [id number] [place] [address] [place] ALLIED HEALTHon 08-18-2024 ALLIED HEALTH Normal [facility] CBC W Auto Differential pane l (Bld)on 08-18-2024 Basophils (Bld) [#/Vol] 10*3/uL Normal <0.11 [facility] Comment on above: Order Comment: Speci men Type: BLOOD SPECIMENOrdering Facility: [facility] Address: [address] [place] [address] Performed By: #### 5 7021-8 ####[facility] [id number] [place] [address] [place] Basophils/100 WBC (Bld) 0.2 % Normal [facility] Comment on above: Order Comment: Speci men Type: BLOOD SPECIMENOrdering Facility: [facility] Address: [address] [place] [address] Performed By: #### 5 7021-8 ####[facility] [id number] [place] [address] [place] Differential cell count method Nom (Bld) Auto Normal [facility] Comment on above: Order Comment: Speci men Type: BLOOD SPECIMENOrdering Facility: [facility] Address: [address] [place] [address] Performed By: #### 5 7021-8 ####[facility] [id number] [place] [address] [place] Eosinophils (Bld) [#/Vol] 0.12 10*3/uL Normal <0.46 [facility] Comment on above: Order Comment: Speci men Type: BLOOD SPECIMENOrdering Facility: [facility] Address: [address] [place] [address] Performed By: #### 5 7021-8 ####[facility] [id number] [place] [address] [place] Eosinophils/100 WBC (Bld) 1.4 % Normal [facility] Comment on above: Order Comment: Speci men Type: BLOOD SPECIMENOrdering Facility: [facility] Address: [address] [place] [address] Performed By: #### 5 7021-8 ####[facility]CL[facility] [id number] [place] [address] [place] Erythrocyte distribution width (RBC) [Ratio] 15.9 % High 11.5-15.0 [facility] Comment on above: Order Comment: Speci men Type: BLOOD SPECIMENOrdering Facility: [facility] Address: [address] [place] [address] Performed By: #### 5 7021-8 ####[facility] [id number] [place] [address] [place] Hematocrit (Bld) [Volume fraction] 35.8 % Low 36.0-46.0 [facility] Comment on above: Order Comment: Speci men Type: BLOOD SPECIMENOrdering Facility: [facility] Address: [address] [place] [address] Performed By: #### 5 7021-8 ####[facility] [id number] [place] [address] [place] Hemoglobin (Bld) [Mass/Vol] 11.5 g/dL Normal 11.5-15.5 [facility] Comment on above: Order Comment: Speci men Type: BLOOD SPECIMENOrdering Facility: [facility] Address: [address] [place] [address] Performed By: #### 5 7021-8 ####[facility] [id number] [place] [address] [place] Immature granulocytes (Bld) [#/Vol] 0.04 10*3/uL Normal <0.10 [facility] Comment on above: Order Comment: Speci men Type: BLOOD SPECIMENOrdering Facility: [facility] Address: [address] [place] [address] Performed By: #### 5 7021-8 ####[facility] [id number] [place] [address] [place] Immature granulocytes/100 WBC (Bld) 0.5 % Normal [facility] Comment on above: Order Comment: Speci men Type: BLOOD SPECIMENOrdering Facility: [facility] Address: [address] [place] [address] Performed By: #### 5 7021-8 ####[facility] [id number] [place] [address] [place] Lymphocytes (Bld) [#/Vol] 0.99 10*3/uL Low 1.00-4.00 [facility] Comment on above: Order Comment: Speci men Type: BLOOD SPECIMENOrdering Facility: [facility] Address: [address] [place] [address] Performed By: #### 5 7021-8 ####[facility] [id number] [place] [address] [place] Lymphocytes/100 WBC (Bld) 11.2 % Normal [facility] Comment on above: Order Comment: Speci men Type: BLOOD SPECIMENOrdering Facility: [facility] Address: [address] [place] [address] Performed By: #### 5 7021-8 ####[facility] LABIA [id number] [place] [address] [place] MCH (RBC) [Entitic mass] 26.1 pg Normal 26.0-34.0 [facility] Comment on above: Order Comment: Speci men Type: BLOOD SPECIMENOrdering Facility: [facility] Address: [address] [place] [address] Performed By: #### 5 7021-8 ####[facility] LABIA [id number] [place] [address] [place] MCHC (RBC) [Mass/Vol] 32.1 g/dL Normal 30.5-36.0 [facility] Comment on above: Order Comment: Speci men Type: BLOOD SPECIMENOrdering Facility: [facility] Address: [address] [place] [address] Performed By: #### 5 7021-8 ####[facility] LABIA [id number] [place] [address] [place] MCV (RBC) [Entitic vol] 81.2 fL Normal 80.0-100.0 [facility] Comment on above: Order Comment: Speci men Type: BLOOD SPECIMENOrdering Facility: [facility] Address: [address] [place] [address] Performed By: #### 5 7021-8 ####[facility] LABIA [id number] [place] [address] [place] Monocytes (Bld) [#/Vol] 0.65 10*3/uL Normal <0.87 [facility] Comment on above: Order Comment: Speci men Type: BLOOD SPECIMENOrdering Facility: [facility] Address: [address] [place] [address] Performed By: #### 5 7021-8 ####[facility] [id number] [place] [id number] [place] Monocytes/100 WBC (Bld) 7.4 % Normal [facility] Comment on above: Order Comment: Speci men Type: BLOOD SPECIMENOrdering Facility: [facility] Address: [address] [place] [address] Performed By: #### 5 7021-8 ####[facility] [id number] [place] [address] [place] Neutrophils (Bld) [#/Vol] 7.00 10*3/uL Normal 1.45-7.50 [facility] Comment on above: Order Comment: Speci men Type: BLOOD SPECIMENOrdering Facility: [facility] Address: [address] [place] [address] Performed By: #### 5 7021-8 ####[facility] [id number] [place] [address] [place] Neutrophils/100 WBC (Bld) 79.3 % Normal [facility] Comment on above: Order Comment: Speci men Type: BLOOD SPECIMENOrdering Facility: [facility] Address: [address] [place] [address] Performed By: #### 5 7021-8 ####[facility] [id number] [place] [id number] [place] Nucleated RBC (Bld) [#/Vol] 10*3/uL Normal <0.01 [facility] Comment on above: Order Comment: Speci men Type: BLOOD SPECIMENOrdering Facility: [facility] Address: [address] [place], [place] [address] Performed By: #### 5 7021-8 ####[facility] [id number] [place] [address] [place] Nucleated RBC/100 WBC (Bld) [Ratio] 0.0 /100 WBC Normal [facility] Comment on above: Order Comment: Speci men Type: BLOOD SPECIMENOrdering Facility: [facility] Address: [address] [place] [address] Performed By: #### 5 7021-8 ####[facility] [id number] [place] [address] [place] Platelet mean volume (Bld) [Entitic vol] 9.2 fL Normal 9.0-12.7 [facility] Comment on above: Order Comment: Speci men Type: BLOOD SPECIMENOrdering Facility: [facility] Address: [address] [place] [address] Performed By: #### 5 7021-8 ####[facility]IA [id number] [place] [address] [place] Platelets (Bld) [#/Vol] 214 10*3/uL Normal 150-400 [facility] Comment on above: Order Comment: Speci men Type: BLOOD SPECIMENOrdering Facility: [facility] Address: [address] [place] [address] Performed By: #### 5 7021-8 ####[facility]IA [id number] [place] [address] [place] RBC (Bld) [#/Vol] 4.41 10*6/uL Normal 3.90-5.20 [facility] Comment on above: Order Comment: Speci men Type: BLOOD SPECIMENOrdering Facility: [facility] Address: [address] [place] [address] Performed By: #### 5 7021-8 ####[facility] [id number] [place] [address] [place] WBC (Bld) [#/Vol] 8.82 10*3/uL Normal 3.70-11.00 [facility] Comment on above: Order Comment: Speci men Type: BLOOD SPECIMENOrdering Facility: [facility] Address: [address] [place] [address] Performed By: #### 5 7021-8 ####[facility] [id number] [place] [address] [place] CRP SerPl-mCncon 08-18-2024 CRP [Mass/Vol] 1.0 mg/dL High <0.9 [facility] Comment on above: Order Comment: Speci men Type: BLOOD SPECIMENOrdering Facility: [facility] Address: [address] [place] [address] Performed By: #### 1 988-5, 33824-2, 06862-9 ####[facility] [id number] [place] [address] [place] CT ABD/PEL W IVCONon 024 CT ABD/PEL W IVCON Normal [facility] ECG COMPLETEon 08-18-2024 ECG COMPLETE Normal [facility] HIGH SENSITIVITY TROPONIN To n 08-18-2024 Troponin T.cardiac High sensitivity method [Mass/Vol] <6 Normal <12 [facility] Comment on above: Order Comment: Speci men Type: BLOOD SPECIMENOrdering Facility: [facility] Address: [address] [place] [address] Performed By: #### H STNT ####[facility]CL[facility] [id number] [place] [address] [place] MEDICAL EMERon 08-18-2024 MEDICAL [place] Normal [facility] Magnesium SerPl-mCncon 08-18 Magnesium [Mass/Vol] 1.8 mg/dL Normal 1.7-2.3 [facility] Comment on above: Order Comment: Speci men Type: BLOOD SPECIMENOrdering Facility: [facility] Address: [address] [place] [address] Performed By: #### 1 988-5, 25624-8, ####[facility]CL[facility] [id number] [place] [address] [place] NURSING PROGon 08-18-2024 NURSING PROG Normal [facility] NUTRITIONon 08-18-2024 NUTRITION Normal [facility] PANC ELASTASE, FECALon 08-18 ELASTASE INTERPRETATION Normal Normal Normal [facility] Comment on above: Order Comment: Speci men Type: STOOL SPECIMENOrdering Facility: [facility] Address: [address] [place] [address] Performed By: #### P ANCEF ####[facility]CL[facility] [id number] [place] [address] [place] ELASTASE-1 CONCENTRATION >800 Normal >=200 [facility] Comment on above: Order Comment: Speci men Type: STOOL SPECIMENOrdering Facility: [facility] Address: [address] [place] [address] Result Comment: Inte rpretation:<100 ug/g: Severe Exocrine Pancreatic [id number] ug/g: Mild to Moderate Exocrine Pancreatic Insufficiency>=200 ug/g: Normal Performed By: #### P ANCEF ####[facility]CL[facility] [id number] [place] [address] [place] Renal function 2000 panelon 08-18-2024 Albumin [Mass/Vol] 4.1 g/dL Normal 3.9-4.9 [facility] Comment on above: Order Comment: Speci men Type: BLOOD SPECIMENOrdering Facility: [facility] Address: [address] [place] [address] Performed By: #### 1 988-5, 66641-3, ####[facility]CL[facility] [id number] [place] [address] [place] Anion gap [Moles/Vol] 20 mmol/L High 8-15 [facility] Comment on above: Order Comment: Speci men Type: BLOOD SPECIMENOrdering Facility: [facility] Address: [address] [place], [place] [address] Performed By: #### 1 988-5, 25137-6, ####[facility]CL[facility] [id number] [address] [address] [place] Calcium [Mass/Vol] 9.5 mg/dL Normal 8.5-10.2 [facility] Comment on above: Order Comment: Speci men Type: BLOOD SPECIMENOrdering Facility: [facility] Address: [address] [place], [place] [address] Performed By: #### 1 988-5, 70836-6, ####[facility]CL[facility] [id number] [place] [address] [place] Chloride [Moles/Vol] 97 mmol/L Low 98-107 [facility] Comment on above: Order Comment: Speci men Type: BLOOD SPECIMENOrdering Facility: [facility] Address: [address] [place], [place] [address] Performed By: #### 1 988-5, 79213-9, ####[facility]CL[facility] [id number] [place] [address] [place] CO2 [Moles/Vol] 19 mmol/L Low 22-30 [facility] Comment on above: Order Comment: Speci men Type: BLOOD SPECIMENOrdering Facility: [facility] Address: [address] [place], [place] [address] Performed By: #### 1 988-5, 19949-9, ####[facility]CL[facility] [id number] [place] [id number] [place] Creatinine [Mass/Vol] 0.71 mg/dL Normal 0.58-0.96 [facility] Comment on above: Order Comment: Speci men Type: BLOOD SPECIMENOrdering Facility: [facility] Address: [address] [place] [address] Performed By: #### 1 988-5, 38739-6, 25939-5 ####[facility] LABIA [id number] [place] [id number] [place] Creatinine and Glomerular filtration rate.predicted panel (S/P/Bld) 122 mL/min/1.73m??? Normal >=60 [facility] Comment on above: Order Comment: Alex mcgovern Type: BLOOD SPECIMENOrdering Facility: [facility] Address: [address] [place] [address] Result Comment: Cinthya mated Glomerular Filtration Rate (eGFR) is calculated using the 2020 CKD-EPI creatinine equation. This equation utilizes serum creatinine, sex, and age as parameters. The creatinine assay has traceable calibration to isotope dilution-mass spectrometry. Refer to KDIGO guidelines for clinical interpretation. In patients with unstable renal function, e.g. those with acute kidney injury, the eGFR may not accurately reflect actual GFR. Performed By: #### 1 988-5, 64731-9, 51602-6 ####[facility]CL[facility] [id number] [place] [address] [place] Glucose [Mass/Vol] 77 mg/dL Normal 74-99 [facility] Comment on above: Order Comment: Alex mcgovern Type: BLOOD SPECIMENOrdering Facility: [facility] Address: [address] [place] [address] Result Comment: The [place] [employer] (ADA) provides guidance for cutoff values for fasting glucose and random glucose. The ADA defines fasting as no caloric intake for at least 8 hours. Fasting plasma glucose results between 100 to 125 mg/dL indicate increased risk for diabetes (prediabetes).Fasting plasma glucose results greater than or equal to 126 mg/dL meet the criteria for diagnosis of diabetes. In the absence of unequivocal hyperglycemia, results should be confirmed by repeat testing. In a patient with classic symptoms of hyperglycemia or hyperglycemic crisis, random plasma glucose results greater than or equal to 200 mg/dL meet the criteria for diagnosis of diabetes.Reference: Standards of Medical Care in Diabetes 2016, [place] [employer]. Diabetes Care. 2016.39(Suppl 1). Performed By: #### 1 988-5, 17624-1, ####[facility]CL[facility] [id number] [address] [address] [place] Phosphate [Mass/Vol] 3.2 mg/dL Normal 2.7-4.8 [facility] Comment on above: Order Comment: Speci men Type: BLOOD SPECIMENOrdering Facility: [facility] Address: [address] [place] [address] Performed By: #### 1 988-5, 82628-1, ####[facility] LABIA [id number] [place] [address] [place] Potassium [Moles/Vol] 3.2 mmol/L Low 3.7-5.1 [facility] Comment on above: Order Comment: Speci men Type: BLOOD SPECIMENOrdering Facility: [facility] Address: [address] [place] [address] Performed By: #### 1 988-5, 04473-4, ####[facility] LABIA [id number] [place] [address] [place] Sodium [Moles/Vol] 136 mmol/L Normal 136-144 [facility] Comment on above: Order Comment: Speci men Type: BLOOD SPECIMENOrdering Facility: [facility] Address: [address] [place] [address] Performed By: #### 1 988-5, 75725-3, ####[facility] LABIA [id number] [address] [address] [place] Urea nitrogen [Mass/Vol] 9 mg/dL Normal 7-21 [facility] Comment on above: Order Comment: Speci men Type: BLOOD SPECIMENOrdering Facility: [facility] Address: [address] [place] [address] Performed By: #### 1 988-5, 65271-7, 16406-7 ####[facility]CL[facility] [id number] [place] [address] [place] US LEG VEIN DVT UNL VAS LABo n 08-18-2024 US LEG VEIN DVT UNL VAS LAB Normal [facility] ALLIED HEALTHon 08-17-2024 ALLIED HEALTH Normal [facility] ALLIED HEALTH Normal [facility] CASE MANAGEMon 08-17-2024 CASE MANAGEM Normal [facility] CBC panel Auto (Bld)on 08-17 Erythrocyte distribution width (RBC) [Ratio] 16.0 % High 11.5-15.0 [facility] Comment on above: Order Comment: Speci men Type: BLOOD SPECIMENOrdering Facility: [facility] Address: [address] [place] [address] Performed By: #### 5 8410-2 ####[facility]CL[facility] [id number] [place] [address] [place] Hematocrit (Bld) [Volume fraction] 38.0 % Normal 36.0-46.0 [facility] Comment on above: Order Comment: Speci men Type: BLOOD SPECIMENOrdering Facility: [facility] Address: [address] [place] [address] Performed By: #### 5 8410-2 ####[facility]CL[facility] [id number] [place] [address] [place] Hemoglobin (Bld) [Mass/Vol] 12.4 g/dL Normal 11.5-15.5 [facility] Comment on above: Order Comment: Speci men Type: BLOOD SPECIMENOrdering Facility: [facility] Address: [address] [place] [address] Performed By: #### 5 8410-2 ####[facility] [id number] [place] [address] [place] MCH (RBC) [Entitic mass] 26.1 pg Normal 26.0-34.0 [facility] Comment on above: Order Comment: Speci men Type: BLOOD SPECIMENOrdering Facility: [facility] Address: [address] [place] [address] Performed By: #### 5 8410-2 ####[facility]IA [id number] [place] [address] [place] MCHC (RBC) [Mass/Vol] 32.6 g/dL Normal 30.5-36.0 [facility] Comment on above: Order Comment: Speci men Type: BLOOD SPECIMENOrdering Facility: [facility] Address: [address] [place] [address] Performed By: #### 5 8410-2 ####[facility] LABIA [id number] [place] [address] [place] MCV (RBC) [Entitic vol] 80.0 fL Normal 80.0-100.0 [facility] Comment on above: Order Comment: Speci men Type: BLOOD SPECIMENOrdering Facility: [facility] Address: [address] [place] [address] Performed By: #### 5 8410-2 ####[facility]IA [id number] [place] [address] [place] Nucleated RBC (Bld) [#/Vol] 10*3/uL Normal <0.01 [facility] Comment on above: Order Comment: Speci men Type: BLOOD SPECIMENOrdering Facility: [facility] Address: [address] [place] [address] Performed By: #### 5 8410-2 ####[facility]IA [id number] [place] [address] [place] Platelet mean volume (Bld) [Entitic vol] 9.3 fL Normal 9.0-12.7 [facility] Comment on above: Order Comment: Speci men Type: BLOOD SPECIMENOrdering Facility: [facility] Address: [address] [place] [address] Performed By: #### 5 8410-2 ####[facility]CL[facility] [id number] [place] [address] [place] Platelets (Bld) [#/Vol] 266 10*3/uL Normal 150-400 [facility] Comment on above: Order Comment: Speci men Type: BLOOD SPECIMENOrdering Facility: [facility] Address: [address] [place] [address] Performed By: #### 5 8410-2 ####[facility]IA [id number] [place] [address] [place] RBC (Bld) [#/Vol] 4.75 10*6/uL Normal 3.90-5.20 [facility] Comment on above: Order Comment: Speci men Type: BLOOD SPECIMENOrdering Facility: [facility] Address: [address] [place] [address] Performed By: #### 5 8410-2 ####[facility] [id number] [place] [address] [place] WBC (Bld) [#/Vol] 10.44 10*3/uL Normal 3.70-11.00 [facility] Comment on above: Order Comment: Speci men Type: BLOOD SPECIMENOrdering Facility: [facility] Address: [address] [place] [address] Performed By: #### 5 8410-2 ####[facility] LABIA [id number] [place] [id number] [place] Magnesium SerPl-mCncon 08-17 Magnesium [Mass/Vol] 2.0 mg/dL Normal 1.7-2.3 [facility] Comment on above: Order Comment: Speci men Type: BLOOD SPECIMENOrdering Facility: [facility] Address: [address] [place] [address] Performed By: #### 2 4362-6, 67018-8 ####[facility]CL[facility] [id number] [place] [id number] [place] Renal function 2000 panelon 08-17-2024 Albumin [Mass/Vol] 4.3 g/dL Normal 3.9-4.9 [facility] Comment on above: Order Comment: Speci men Type: BLOOD SPECIMENOrdering Facility: [facility] Address: [address] [place] [address] Performed By: #### 2 4362-6, ####[facility]CL[facility] [id number] [place] [id number] [place] Anion gap [Moles/Vol] 18 mmol/L High 8-15 [facility] Comment on above: Order Comment: Speci men Type: BLOOD SPECIMENOrdering Facility: [facility] Address: [address] [place] [address] Performed By: #### 2 4362-6, ####[facility]CL[facility] [id number] [place] [id number] [place] Calcium [Mass/Vol] 9.8 mg/dL Normal 8.5-10.2 [facility] Comment on above: Order Comment: Speci men Type: BLOOD SPECIMENOrdering Facility: [facility] Address: [address] [place] [address] Performed By: #### 2 4362-6, ####[facility] [id number] [place] [id number] [place] Chloride [Moles/Vol] 100 mmol/L Normal 98-107 [facility] Comment on above: Order Comment: Speci men Type: BLOOD SPECIMENOrdering Facility: [facility] Address: [address] [place] [address] Performed By: #### 2 4362-6, ####[facility] [id number] [place] [id number] [place] CO2 [Moles/Vol] 20 mmol/L Low 22-30 [facility] Comment on above: Order Comment: Speci men Type: BLOOD SPECIMENOrdering Facility: [facility] Address: [address] [place] [address] Performed By: #### 2 4362-6, ####[facility] [id number] [place] [address] [place] Creatinine [Mass/Vol] 0.66 mg/dL Normal 0.58-0.96 [facility] Comment on above: Order Comment: Speci men Type: BLOOD SPECIMENOrdering Facility: [facility] Address: [address] [place] [address] Performed By: #### 2 4362-6, ####[facility] [id number] [address] [facility] Creatinine and Glomerular filtration rate.predicted panel (S/P/Bld) 126 mL/min/1.73m??? Normal >=60 [facility] Comment on above: Order Comment: Speci men Type: BLOOD SPECIMENOrdering Facility: [facility] Address: [address] [place] [address] Result Comment: Cinthya mated Glomerular Filtration Rate (eGFR) is calculated using the 2020 CKD-EPI creatinine equation. This equation utilizes serum creatinine, sex, and age as parameters. The creatinine assay has traceable calibration to isotope dilution-mass spectrometry. Refer to KDIGO guidelines for clinical interpretation. In patients with unstable renal function, e.g. those with acute kidney injury, the eGFR may not accurately reflect actual GFR. Performed By: #### 2 4362-6, ####[facility] LABCLIA [id number] [place] [address] [place] Glucose [Mass/Vol] 95 mg/dL Normal 74-99 [facility] Comment on above: Order Comment: Speci men Type: BLOOD SPECIMENOrdering Facility: [facility] Address: [address] [place] [address] Result Comment: The [place] Diabetes [employer] (ADA) provides guidance for cutoff values for fasting glucose and random glucose. The ADA defines fasting as no caloric intake for at least 8 hours. Fasting plasma glucose results between 100 to 125 mg/dL indicate increased risk for diabetes (prediabetes).Fasting plasma glucose results greater than or equal to 126 mg/dL meet the criteria for diagnosis of diabetes. In the absence of unequivocal hyperglycemia, results should be confirmed by repeat testing. In a patient with classic symptoms of hyperglycemia or hyperglycemic crisis, random plasma glucose results greater than or equal to 200 mg/dL meet the criteria for diagnosis of diabetes.Reference: Standards of Medical Care in Diabetes 2016, [place] [employer]. Diabetes Care. 2016.39(Suppl 1). Performed By: #### 2 4362-6, ####[facility] LABCLIA [id number] [place] [address] [place] Phosphate [Mass/Vol] 3.3 mg/dL Normal 2.7-4.8 [facility] Comment on above: Order Comment: Speci men Type: BLOOD SPECIMENOrdering Facility: [facility] Address: [address] [place] [address] Performed By: #### 2 4362-6, ####[facility] LABCLIA [id number] [place] [address] [place] Potassium [Moles/Vol] 3.3 mmol/L Low 3.7-5.1 [facility] Comment on above: Order Comment: Speci men Type: BLOOD SPECIMENOrdering Facility: [facility] Address: [address] [place] [address] Performed By: #### 2 4362-6, ####[facility] LABIA [id number] [place] [address] [place] Sodium [Moles/Vol] 138 mmol/L Normal 136-144 [facility] Comment on above: Order Comment: Speci men Type: BLOOD SPECIMENOrdering Facility: [facility] Address: [address] [place] [address] Performed By: #### 2 4362-6, 09018-7 ####[facility]CL[facility] [id number] [place] [address] [place] Urea nitrogen [Mass/Vol] 6 mg/dL Low 7-21 [facility] Comment on above: Order Comment: Speci men Type: BLOOD SPECIMENOrdering Facility: [facility] Address: [address] [place] [address] Performed By: #### 2 4362-6, ####[facility] LABCLIA [id number] [place] [address] [place] CBC panel Auto (Bld)on 08-16 Erythrocyte distribution width (RBC) [Ratio] 16.1 % High 11.5-15.0 [facility] Comment on above: Order Comment: Speci men Type: BLOOD SPECIMENOrdering Facility: [facility] Address: [address] [place] [address] Performed By: #### 5 8410-2 ####[facility]CL[facility] [id number] [place] [address] [place] Hematocrit (Bld) [Volume fraction] 33.4 % Low 36.0-46.0 [facility] Comment on above: Order Comment: Speci men Type: BLOOD SPECIMENOrdering Facility: [facility] Address: [address] [place] [address] Performed By: #### 5 8410-2 ####[facility] LABCLIA [id number] [place] [id number] [place] Hemoglobin (Bld) [Mass/Vol] 10.6 g/dL Low 11.5-15.5 [facility] Comment on above: Order Comment: Speci men Type: BLOOD SPECIMENOrdering Facility: [facility] Address: [address] [place] [address] Performed By: #### 5 8410-2 ####[facility]CL[facility] [id number] [place] [address] [place] MCH (RBC) [Entitic mass] 24.9 pg Low 26.0-34.0 [facility] Comment on above: Order Comment: Speci men Type: BLOOD SPECIMENOrdering Facility: [facility] Address: [address] [place] [address] Performed By: #### 5 8410-2 ####[facility] [id number] [place] [address] [place] MCHC (RBC) [Mass/Vol] 31.7 g/dL Normal 30.5-36.0 [facility] Comment on above: Order Comment: Speci men Type: BLOOD SPECIMENOrdering Facility: [facility] Address: [address] [place] [address] Performed By: #### 5 8410-2 ####[facility] [id number] [place] [address] [place] MCV (RBC) [Entitic vol] 78.4 fL Low 80.0-100.0 [facility] Comment on above: Order Comment: Speci men Type: BLOOD SPECIMENOrdering Facility: [facility] Address: [address] [place] [address] Performed By: #### 5 8410-2 ####[facility] [id number] [place] [address] [place] Nucleated RBC (Bld) [#/Vol] 10*3/uL Normal <0.01 [facility] Comment on above: Order Comment: Speci men Type: BLOOD SPECIMENOrdering Facility: [facility] Address: [address] [place] [address] Performed By: #### 5 8410-2 ####[facility] [id number] [place] [address] [place] Platelet mean volume (Bld) [Entitic vol] 9.0 fL Normal 9.0-12.7 [facility] Comment on above: Order Comment: Speci men Type: BLOOD SPECIMENOrdering Facility: [facility] Address: [address] [place] [address] Performed By: #### 5 8410-2 ####[facility]CL[facility] [id number] [place] [address] [place] Platelets (Bld) [#/Vol] 208 10*3/uL Normal 150-400 [facility] Comment on above: Order Comment: Speci men Type: BLOOD SPECIMENOrdering Facility: [facility] Address: [address] [place] [address] Performed By: #### 5 8410-2 ####[facility]CL[facility] [id number] [place] [address] [place] RBC (Bld) [#/Vol] 4.26 10*6/uL Normal 3.90-5.20 [facility] Comment on above: Order Comment: Speci men Type: BLOOD SPECIMENOrdering Facility: [facility] Address: [address] [place] [address] Performed By: #### 5 8410-2 ####[facility]CL[facility] [id number] [place] [address] [place] WBC (Bld) [#/Vol] 7.56 10*3/uL Normal 3.70-11.00 [facility] Comment on above: Order Comment: Speci men Type: BLOOD SPECIMENOrdering Facility: [facility] Address: [address] [place] [address] Performed By: #### 5 8410-2 ####[facility]CL[facility] [id number] [place] [address] [place] CONSULTon 08-16-2024 CONSULT Normal [facility] CONSULT PROGon 08-16-2024 CONSULT PROG Normal [facility] NURSING PROGon 08-16-2024 NURSING PROG Normal [facility] Renal function 2000 panelon 08-16-2024 Albumin [Mass/Vol] 3.8 g/dL Low 3.9-4.9 [facility] Comment on above: Order Comment: Speci men Type: BLOOD SPECIMENOrdering Facility: [facility] Address: [address] [place] [address] Performed By: #### 2 4362-6 ####[facility]CL[facility] [id number] [place] [address] [place] Anion gap [Moles/Vol] 14 mmol/L Normal 8-15 [facility] Comment on above: Order Comment: Speci men Type: BLOOD SPECIMENOrdering Facility: [facility] Address: [address] [place] [address] Performed By: #### 2 4362-6 ####[facility]CL[facility] [id number] [place] [address] [place] Calcium [Mass/Vol] 8.2 mg/dL Low 8.5-10.2 [facility] Comment on above: Order Comment: Speci men Type: BLOOD SPECIMENOrdering Facility: [facility] Address: [address] [place] [address] Performed By: #### 2 4362-6 ####[facility]CL[facility] [id number] [place] [address] [place] Chloride [Moles/Vol] 103 mmol/L Normal 98-107 [facility] Comment on above: Order Comment: Speci men Type: BLOOD SPECIMENOrdering Facility: [facility] Address: [address] [place], [place] [address] Performed By: #### 2 4362-6 ####[facility]CL[facility] [id number] [place] [address] [place] CO2 [Moles/Vol] 21 mmol/L Low 22-30 [facility] Comment on above: Order Comment: Speci men Type: BLOOD SPECIMENOrdering Facility: [facility] Address: [address] [place] [address] Performed By: #### 2 4362-6 ####[facility] LABIA [id number] [place] [address] [place] Creatinine [Mass/Vol] 0.56 mg/dL Low 0.58-0.96 [facility] Comment on above: Order Comment: Speci men Type: BLOOD SPECIMENOrdering Facility: [facility] Address: [address] [place] [address] Performed By: #### 2 4362-6 ####[facility] LABIA [id number] [place] [address] [place] Creatinine and Glomerular filtration rate.predicted panel (S/P/Bld) 131 mL/min/1.73m??? Normal >=60 [facility] Comment on above: Order Comment: Alex men Type: BLOOD SPECIMENOrdering Facility: [facility] Address: [address] [place] [address] Result Comment: Cinthya mated Glomerular Filtration Rate (eGFR) is calculated using the 2020 CKD-EPI creatinine equation. This equation utilizes serum creatinine, sex, and age as parameters. The creatinine assay has traceable calibration to isotope dilution-mass spectrometry. Refer to KDIGO guidelines for clinical interpretation. In patients with unstable renal function, e.g. those with acute kidney injury, the eGFR may not accurately reflect actual GFR. Performed By: #### 2 4362-6 ####[facility] LABIA [id number] [place] [address] [place] Glucose [Mass/Vol] 96 mg/dL Normal 74-99 [facility] Comment on above: Order Comment: Sini men Type: BLOOD SPECIMENOrdering Facility: [facility] Address: [address] [place] [address] Result Comment: The [place] Diabetes [employer] (ADA) provides guidance for cutoff values for fasting glucose and random glucose. The ADA defines fasting as no caloric intake for at least 8 hours. Fasting plasma glucose results between 100 to 125 mg/dL indicate increased risk for diabetes (prediabetes).Fasting plasma glucose results greater than or equal to 126 mg/dL meet the criteria for diagnosis of diabetes. In the absence of unequivocal hyperglycemia, results should be confirmed by repeat testing. In a patient with classic symptoms of hyperglycemia or hyperglycemic crisis, random plasma glucose results greater than or equal to 200 mg/dL meet the criteria for diagnosis of diabetes.Reference: Standards of Medical Care in Diabetes 2016, [place] [employer]. Diabetes Care. 2016.39(Suppl 1). Performed By: #### 2 4362-6 ####[facility] LABIA [id number] [place] [address] [place] Phosphate [Mass/Vol] 2.9 mg/dL Normal 2.7-4.8 [facility] Comment on above: Order Comment: Speci men Type: BLOOD SPECIMENOrdering Facility: [facility] Address: [address] [place] [address] Performed By: #### 2 4362-6 ####[facility]IA [id number] [place] [address] [place] Potassium [Moles/Vol] 3.4 mmol/L Low 3.7-5.1 [facility] Comment on above: Order Comment: Speci men Type: BLOOD SPECIMENOrdering Facility: [facility] Address: [address] [place] [address] Performed By: #### 2 4362-6 ####[facility] LABIA [id number] [place] [address] [place] Sodium [Moles/Vol] 138 mmol/L Normal 136-144 [facility] Comment on above: Order Comment: Speci men Type: BLOOD SPECIMENOrdering Facility: [facility] Address: [address] [place] [address] Performed By: #### 2 4362-6 ####[facility] LABIA [id number] [place] [address] [place] Urea nitrogen [Mass/Vol] 4 mg/dL Low 7-21 [facility] Comment on above: Order Comment: Speci men Type: BLOOD SPECIMENOrdering Facility: [facility] Address: [address] [place] [address] Performed By: #### 2 4362-6 ####[facility]CL[facility] [id number] [facility] [address] [address] [place] US MESENTERIC ARTERY CMPLT V LABon 08-16-2024 US MESENTERIC ARTERY CMPLT VAS LAB Normal [facility] Basic metabolic 2000 panelon 08-15-2024 Anion gap [Moles/Vol] 20 mmol/L High 8-15 [facility] Comment on above: Order Comment: Speci men Type: BLOOD SPECIMENOrdering Facility: [facility] Address: [address] [place] [address] Performed By: #### 2 4321-2, , HSTNT ####[facility]CL[facility] [id number] [place] [address] [place] Calcium [Mass/Vol] 9.9 mg/dL Normal 8.5-10.2 [facility] Comment on above: Order Comment: Speci men Type: BLOOD SPECIMENOrdering Facility: [facility] Address: [address] [place] [address] Performed By: #### 2 4321-2, , HSTNT ####[facility]CL[facility] [id number] [place] [address] [place] Chloride [Moles/Vol] 98 mmol/L Normal 98-107 [facility] Comment on above: Order Comment: Speci men Type: BLOOD SPECIMENOrdering Facility: [facility] Address: [address] [place] [address] Performed By: #### 2 4321-2, , HSTNT ####[facility]CLIA [id number] [place] [address] [place] CO2 [Moles/Vol] 19 mmol/L Low 22-30 [facility] Comment on above: Order Comment: Speci men Type: BLOOD SPECIMENOrdering Facility: [facility] Address: [address] [place] [address] Performed By: #### 2 4321-2, , HSTNT ####[facility] LABCLIA [id number] [facility] [place] [address] [place] Creatinine [Mass/Vol] 0.65 mg/dL Normal 0.58-0.96 [facility] Comment on above: Order Comment: Speci men Type: BLOOD SPECIMENOrdering Facility: [facility] Address: [address] [place] [address] Performed By: #### 2 4320-2, , HSTNT ####[facility] LABCLIA [id number] [place] [address] [place] Creatinine and Glomerular filtration rate.predicted panel (S/P/Bld) 126 mL/min/1.73m??? Normal >=60 [facility] Comment on above: Order Comment: Speci men Type: BLOOD SPECIMENOrdering Facility: [facility] Address: [address] [place] [address] Result Comment: Cinthya mated Glomerular Filtration Rate (eGFR) is calculated using the 2020 CKD-EPI creatinine equation. This equation utilizes serum creatinine, sex, and age as parameters. The creatinine assay has traceable calibration to isotope dilution-mass spectrometry. Refer to KDIGO guidelines for clinical interpretation. In patients with unstable renal function, e.g. those with acute kidney injury, the eGFR may not accurately reflect actual GFR. Performed By: #### 2 4320-2, , HSTNT ####[facility] LABCL[facility] [id number] [place] [address] [place] Glucose [Mass/Vol] 92 mg/dL Normal 74-99 [facility] Comment on above: Order Comment: Speci men Type: BLOOD SPECIMENOrdering Facility: [facility] Address: [address] [place] [address] Result Comment: The [place] Diabetes Association (ADA) provides guidance for cutoff values for fasting glucose and random glucose. The ADA defines fasting as no caloric intake for at least 8 hours. Fasting plasma glucose results between 100 to 125 mg/dL indicate increased risk for diabetes (prediabetes).Fasting plasma glucose results greater than or equal to 126 mg/dL meet the criteria for diagnosis of diabetes. In the absence of unequivocal hyperglycemia, results should be confirmed by repeat testing. In a patient with classic symptoms of hyperglycemia or hyperglycemic crisis, random plasma glucose results greater than or equal to 200 mg/dL meet the criteria for diagnosis of diabetes.Reference: Standards of Medical Care in Diabetes 2016, [place] [employer]. Diabetes Care. 2016.39(Suppl 1). Performed By: #### 2 432-2, , HSTNT ####[facility]CL[facility] [id number] [place] [address] [place] Potassium [Moles/Vol] 2.9 mmol/L Low 3.7-5.1 [facility] Comment on above: Order Comment: Speci men Type: BLOOD SPECIMENOrdering Facility: [facility] Address: [address] [place] [address] Performed By: #### 2 4320-10, , HSTNT ####[facility]CL[facility] [id number] [place] [address] [place] Sodium [Moles/Vol] 137 mmol/L Normal 136-144 [facility] Comment on above: Order Comment: Speci men Type: BLOOD SPECIMENOrdering Facility: [facility] Address: [address] [place] [address] Performed By: #### 2 4320-10, , HSTNT ####[facility]CL[facility] [id number] [place] [id number] [place] Urea nitrogen [Mass/Vol] 4 mg/dL Low 7-21 [facility] Comment on above: Order Comment: Speci men Type: BLOOD SPECIMENOrdering Facility: [facility] Address: [address] [place] [address] Performed By: #### 2 4321-2, 30921-6, HSTNT ####[facility] LABCL[facility] [id number] [place] [address] [place] CASE MGT INIT ASSESon 2023 CASE MGT INIT ASSES Normal [facility] CONSULT PROGon 08-15-2024 CONSULT PROG Normal [facility] DNA EXTRACTION BLOODon 08-15 CONCENTRATION (NG/UL) 105.7 ng/ul Normal [facility] Comment on above: Order Comment: Speci men Type: BLOOD SPECIMENOrdering Facility: [facility] Address: [address] [place] [address] Performed By: #### N UCBLD ####[facility] LIMSCL[facility] [id number] [place] [address] [place] TOTAL YIELD 26.425 ug Normal [facility] Comment on above: Order Comment: Speci men Type: BLOOD SPECIMENOrdering Facility: [facility] Address: [address] [place] [address] Result Comment: Spec imens will be available for 3 years from date of collection. To order testing on this specimen for [facility] patients, please place an [facility] order for DNA and RNA for Clinical Testing ([id number]). To order for patients outside of the [facility] system, please request DNA and RNA for Clinical Testing, order code [id number].If additional paperwork is required for testing, please email completed forms to . Performed By: #### N UCBLD ####[facility] LIMSCLIA [id number] [place] [address] [place] VOLUME (UL) OF DNA 250 uL Normal [facility] Comment on above: Order Comment: Speci men Type: BLOOD SPECIMENOrdering Facility: [facility] Address: [address] [place] [address] Performed By: #### N UCBLD ####[facility] LIMSCLIA [id number] [place] [id number] [place] ECG COMPLETEon 08-15-2024 ECG COMPLETE Normal [facility] HIGH SENSITIVITY TROPONIN To n 08-15-2024 Troponin T.cardiac High sensitivity method [Mass/Vol] <6 Normal <12 [facility] Comment on above: Order Comment: Speci men Type: BLOOD SPECIMENOrdering Facility: [facility] Address: [address] [place] [address] Performed By: #### 2 4321-2, 18711-7, HSTNT ####[facility]CLIA [id number] [place] [address] [place] Magnesium SerPl-mCncon 08-15 Magnesium [Mass/Vol] 1.7 mg/dL Normal 1.7-2.3 [facility] Comment on above: Order Comment: Speci men Type: BLOOD SPECIMENOrdering Facility: [facility] Address: [address] [place] [address] Performed By: #### 2 4321-2, 82876-6, HSTNT ####[facility] LABCLIA [id number] [place] [address] [place] PORPHYRINS, TOTAL, PLASMA OR SERUMon 08-15-2024 INTERPRETATION, SPORPH Negative Normal [facility] Comment on above: Order Comment: Speci men Type: BLOOD SPECIMENOrdering Facility: [facility] Address: [address] [place] [address] Result Comment: Perf ormed By: [facility] [id number] [place], [place] [id number] Director: Rolando Butler MD, PhDCLIA Number: [id number] Performed By: #### S PORPH ####[facility] [id number] [place] [address] PORPHYRINS SER TOTAL <10 Normal 0-15 [facility] Comment on above: Order Comment: Speci men Type: BLOOD SPECIMENOrdering Facility: [facility] Address: [address] [place] [id number] Performed By: #### S PORPH ####[facility] [id number] [place] [address] XR ABDOMEN 1V SUPINEon 08-15 XR ABDOMEN 1V SUPINE Normal [facility] Basic metabolic 2000 panelon 08-14-2024 Anion gap [Moles/Vol] 19 mmol/L High 8-15 [facility] Comment on above: Order Comment: Speci men Type: BLOOD SPECIMENOrdering Facility: [facility] Address: [address] [place], [place] [address] Performed By: #### 1 988-5, 2777-1, 23149-9, 3040-3, 67203-8 ####[facility] LABCLIA [id number] [place] [address] [place] Calcium [Mass/Vol] 9.5 mg/dL Normal 8.5-10.2 [facility] Comment on above: Order Comment: Speci men Type: BLOOD SPECIMENOrdering Facility: [facility] Address: [address] [place] [address] Performed By: #### 1 988-5, 2777-1, 95063-4, 3040-3, 81068-6 ####[facility] LABCLIA [id number] [place] [address] [place] Chloride [Moles/Vol] 102 mmol/L Normal 98-107 [facility] Comment on above: Order Comment: Speci men Type: BLOOD SPECIMENOrdering Facility: [facility] Address: [address] [place] [id number] Performed By: #### 1 988-5, 2777-1, 12382-6, 3040-3, 07712-3 ####[facility] LABCLIA [id number] [place] [id number] [place] CO2 [Moles/Vol] 16 mmol/L Low 22-30 [facility] Comment on above: Order Comment: Speci men Type: BLOOD SPECIMENOrdering Facility: [facility] Address: [address] [place] [id number] Performed By: #### 1 988-5, 2777-1, 09695-1, 3040-3, 19851-7 ####[facility] LABCLIA [id number] [address] [address] [place] Creatinine [Mass/Vol] 0.62 mg/dL Normal 0.58-0.96 [facility] Comment on above: Order Comment: Sini men Type: BLOOD SPECIMENOrdering Facility: [facility] Address: [address] [place] [address] Performed By: #### 1 988-5, 2777-1, 29409-9, 3040-3, 32940-1 ####[facility] LABIA [id number] [place] [address] [place] Creatinine and Glomerular filtration rate.predicted panel (S/P/Bld) 128 mL/min/1.73m??? Normal >=60 [facility] Comment on above: Order Comment: Alex mcgovern Type: BLOOD SPECIMENOrdering Facility: [facility] Address: [address] [place] [address] Result Comment: Cinthya mated Glomerular Filtration Rate (eGFR) is calculated using the 2020 CKD-EPI creatinine equation. This equation utilizes serum creatinine, sex, and age as parameters. The creatinine assay has traceable calibration to isotope dilution-mass spectrometry. Refer to KDIGO guidelines for clinical interpretation. In patients with unstable renal function, e.g. those with acute kidney injury, the eGFR may not accurately reflect actual GFR. Performed By: #### 1 988-5, 2777-1, 15731-7, 3040-3, 66876-2 ####[facility] LABCLIA [id number] [place] [id number] [place] Glucose [Mass/Vol] 93 mg/dL Normal 74-99 [facility] Comment on above: Order Comment: Alex men Type: BLOOD SPECIMENOrdering Facility: [facility] Address: [address] [place] [address] Result Comment: The [place] Diabetes [employer] (ADA) provides guidance for cutoff values for fasting glucose and random glucose. The ADA defines fasting as no caloric intake for at least 8 hours. Fasting plasma glucose results between 100 to 125 mg/dL indicate increased risk for diabetes (prediabetes).Fasting plasma glucose results greater than or equal to 126 mg/dL meet the criteria for diagnosis of diabetes. In the absence of unequivocal hyperglycemia, results should be confirmed by repeat testing. In a patient with classic symptoms of hyperglycemia or hyperglycemic crisis, random plasma glucose results greater than or equal to 200 mg/dL meet the criteria for diagnosis of diabetes.Reference: Standards of Medical Care in Diabetes 2016, [place] [employer]. Diabetes Care. 2016.39(Suppl 1). Performed By: #### 1 988-5, 2777-1, 21472-4, 3040-3, 68038-5 ####[facility] LABCLIA [id number] [place] [address] [place] Potassium [Moles/Vol] 3.3 mmol/L Low 3.7-5.1 [facility] Comment on above: Order Comment: Speci men Type: BLOOD SPECIMENOrdering Facility: [facility] Address: [address] [place] [address] Performed By: #### 1 988-5, 2777-1, 86535-0, 3040-3, 34903-0 ####[facility] LABCLIA [id number] [place] [id number] [place] Sodium [Moles/Vol] 137 mmol/L Normal 136-144 [facility] Comment on above: Order Comment: Speci men Type: BLOOD SPECIMENOrdering Facility: [facility] Address: [address] [place] [address] Performed By: #### 1 988-5, 2777-1, 69855-9, 3040-3, 04661-5 ####[facility] LABCLIA [id number] [place] [address] [place] Urea nitrogen [Mass/Vol] 3 mg/dL Low 7-21 [facility] Comment on above: Order Comment: Speci men Type: BLOOD SPECIMENOrdering Facility: [facility] Address: [address] [place] [address] Performed By: #### 1 988-5, 2777-1, 22030-2, 3040-3, 74279-7 ####[facility] LABCLIA [id number] [address] [place] CBC panel Auto (Bld)on 08-14 Erythrocyte distribution width (RBC) [Ratio] 16.0 % High 11.5-15.0 [facility] Comment on above: Order Comment: Speci men Type: BLOOD SPECIMENOrdering Facility: [facility] Address: [address] [place] [address] Performed By: #### 5 8410-2 ####[facility] [id number] [address] [place] Hematocrit (Bld) [Volume fraction] 37.7 % Normal 36.0-46.0 [facility] Comment on above: Order Comment: Speci men Type: BLOOD SPECIMENOrdering Facility: [facility] Address: [address] [place] [address] Performed By: #### 5 8410-2 ####[facility] LABCLIA [id number] [place] [address] [place] Hemoglobin (Bld) [Mass/Vol] 12.1 g/dL Normal 11.5-15.5 [facility] Comment on above: Order Comment: Speci men Type: BLOOD SPECIMENOrdering Facility: [facility] Address: [address] [place] [address] Performed By: #### 5 8410-2 ####[facility] LABCLIA [id number] [place] [address] [place] MCH (RBC) [Entitic mass] 25.9 pg Low 26.0-34.0 [facility] Comment on above: Order Comment: Speci men Type: BLOOD SPECIMENOrdering Facility: [facility] Address: [address] [place] [address] Performed By: #### 5 8410-2 ####[facility] [id number] [place] [address] [place] MCHC (RBC) [Mass/Vol] 32.1 g/dL Normal 30.5-36.0 [facility] Comment on above: Order Comment: Speci men Type: BLOOD SPECIMENOrdering Facility: [facility] Address: [address] [place] [address] Performed By: #### 5 8410-2 ####[facility] [id number] [place] [address] [place] MCV (RBC) [Entitic vol] 80.7 fL Normal 80.0-100.0 [facility] Comment on above: Order Comment: Speci men Type: BLOOD SPECIMENOrdering Facility: [facility] Address: [address] [place] [address] Performed By: #### 5 8410-2 ####[facility] [id number] [place] [address] [place] Nucleated RBC (Bld) [#/Vol] 10*3/uL Normal <0.01 [facility] Comment on above: Order Comment: Speci men Type: BLOOD SPECIMENOrdering Facility: [facility] Address: [address] [place] [address] Performed By: #### 5 8410-2 ####[facility] [id number] [place] [address] [place] Platelet mean volume (Bld) [Entitic vol] 9.5 fL Normal 9.0-12.7 [facility] Comment on above: Order Comment: Speci men Type: BLOOD SPECIMENOrdering Facility: [facility] Address: [address] [place] [address] Performed By: #### 5 8410-2 ####[facility] LABCLIA [id number] [place] [address] [place] Platelets (Bld) [#/Vol] 221 10*3/uL Normal 150-400 [facility] Comment on above: Order Comment: Speci men Type: BLOOD SPECIMENOrdering Facility: [facility] Address: [address] [place] [address] Performed By: #### 5 8410-2 ####[facility] [id number] [place] [address] [place] RBC (Bld) [#/Vol] 4.67 10*6/uL Normal 3.90-5.20 [facility] Comment on above: Order Comment: Speci men Type: BLOOD SPECIMENOrdering Facility: [facility] Address: [address] [place] [address] Performed By: #### 5 8410-2 ####[facility] [id number] [place] [address] [place] WBC (Bld) [#/Vol] 7.81 10*3/uL Normal 3.70-11.00 [facility] Comment on above: Order Comment: Speci men Type: BLOOD SPECIMENOrdering Facility: [facility] Address: [address] [place] [address] Performed By: #### 5 8410-2 ####[facility] [id number] [place] [address] [place] CNDSon 08-14-2024 CNDS Normal [facility] CONSULTon 08-14-2024 CONSULT Normal [facility] CRP SerPl-mCncon 08-14-2024 CRP [Mass/Vol] 1.4 mg/dL High <0.9 [facility] Comment on above: Order Comment: Speci men Type: BLOOD SPECIMENOrdering Facility: [facility] Address: [address] [place] [address] Performed By: #### 1 988-5, 2777-1, 68949-8, 3040-3, 46947-3 ####[facility] LABCLIA [id number] [place] [address] [place] ESR Westergren method (Bld) [Velocity]on 08-14-2024 ESR (Bld) [Velocity] 38 mm/h High 0-20 [facility] Comment on above: Order Comment: Speci men Type: BLOOD SPECIMENOrdering Facility: [facility] Address: [address] [place], [place] [address] [address] Performed By: #### 4 537-7 ####[facility] [id number] [place] [address] [place] HISTORY PHYSICALon HISTORY PHYSICAL Normal [facility] Hepatic function 2000 panelo n 08-14-2024 Albumin [Mass/Vol] 4.1 g/dL Normal 3.9-4.9 [facility] Comment on above: Order Comment: Speci men Type: BLOOD SPECIMENOrdering Facility: [facility] Address: [facility] [place] [address] Performed By: #### 1 988-5, 2777-1, 38751-5, 3040-3, 46194-7 ####[facility] [id number] [place] [address] [place] ALP [Catalytic activity/Vol] 56 U/L Normal 34-123 [facility] Comment on above: Order Comment: Speci men Type: BLOOD SPECIMENOrdering Facility: [facility] Address: [facility] [place] [address] Performed By: #### 1 988-5, 2777-1, 58769-2, 3040-3, 29163-2 ####[facility] LABCLIA [id number] [address] [id number] [address] [place] ALT [Catalytic activity/Vol] 17 U/L Normal 7-38 [facility] Comment on above: Order Comment: Speci men Type: BLOOD SPECIMENOrdering Facility: [facility] Address: [address] [place] [address] Performed By: #### 1 988-5, 2777-1, 10802-9, 3040-3, 66647-7 ####[facility] LABCLIA [id number] [place] [address] [place] AST [Catalytic activity/Vol] 19 U/L Normal 13-35 [facility] Comment on above: Order Comment: Speci men Type: BLOOD SPECIMENOrdering Facility: [facility] Address: [address] [place] [address] Performed By: #### 1 988-5, 2777-1, 55343-4, 3040-3, 48739-2 ####[facility] [id number] [address] [place] Bilirubin [Mass/Vol] 0.3 mg/dL Normal 0.2-1.3 [facility] Comment on above: Order Comment: Speci men Type: BLOOD SPECIMENOrdering Facility: [facility] Address: [address] [place] [address] Performed By: #### 1 988-5, 2777-1, 96077-2, 3040-3, 58270-9 ####[facility] LABCLIA [id number] [place] [address] [place] Bilirubin.conjugated [Mass/Vol] mg/dL Normal <0.2 [facility] Comment on above: Order Comment: Speci men Type: BLOOD SPECIMENOrdering Facility: [facility] Address: [address] [place] [address] Performed By: #### 1 988-5, 2777-1, 28693-1, 3040-3, 90327-1 ####[facility] LABCLIA [id number] [place] [address] [place] Protein [Mass/Vol] 7.4 g/dL Normal 6.3-8.0 [facility] Comment on above: Order Comment: Speci men Type: BLOOD SPECIMENOrdering Facility: [facility] Address: [address] [place] [address] Performed By: #### 1 988-5, 2777-1, 98624-6, 3040-3, 68603-6 ####[facility] LABCLIA [id number] [place] [address] [place] Lipase SerPl-cCncon 08-14-20 24 Lipase [Catalytic activity/Vol] 163 U/L High 16-61 [facility] Comment on above: Order Comment: Speci men Type: BLOOD SPECIMENOrdering Facility: [facility] Address: [address] [place] [address] Performed By: #### 1 988-5, 2777-1, 86923-5, 3040-3, 82242-6 ####[facility] LABCLIA [id number] [place] [address] [place] PT EDon 08-14-2024 PT ED Normal [facility] Phosphate SerPl-mCncon 08-14 Phosphate [Mass/Vol] 2.5 mg/dL Low 2.7-4.8 [facility] Comment on above: Order Comment: Speci men Type: BLOOD SPECIMENOrdering Facility: [facility] Address: [address] [place] [address] Performed By: #### 1 988-5, 2777-1, 47205-1, 3040-3, 28310-7 ####[facility] LABCLIA [id number] [place] [id number] [place] ALLIED HEALTHon 08-13-2024 ALLIED HEALTH Normal [facility] CBC W Auto Differential pane l (Bld)on 08-13-2024 Basophils (Bld) [#/Vol] 10*3/uL Normal <0.11 [facility] Comment on above: Order Comment: Speci men Type: BLOOD SPECIMENOrdering Facility: [facility] Address: [facility] [place] [address] Performed By: #### 5 7021-8 ####[facility] [id number] [place] [address] [place] Basophils/100 WBC (Bld) 0.2 % Normal [facility] Comment on above: Order Comment: Speci men Type: BLOOD SPECIMENOrdering Facility: [facility] Address: [address] [place] [address] Performed By: #### 5 7021-8 ####[facility] [id number] [place] [address] [place] Differential cell count method Nom (Bld) Auto Normal [facility] Comment on above: Order Comment: Speci men Type: BLOOD SPECIMENOrdering Facility: [facility] Address: [address] [place] [address] Performed By: #### 5 7021-8 ####[facility] [id number] [place] [address] [place] Eosinophils (Bld) [#/Vol] 0.06 10*3/uL Normal <0.46 [facility] Comment on above: Order Comment: Speci men Type: BLOOD SPECIMENOrdering Facility: [facility] Address: [address] [place] [address] Performed By: #### 5 7021-8 ####[facility] [id number] [place] [address] [place] Eosinophils/100 WBC (Bld) 0.7 % Normal [facility] Comment on above: Order Comment: Speci men Type: BLOOD SPECIMENOrdering Facility: [facility] Address: [address] [place] [address] Performed By: #### 5 7021-8 ####[facility] [id number] [place] [address] [place] Erythrocyte distribution width (RBC) [Ratio] 15.5 % High 11.5-15.0 [facility] Comment on above: Order Comment: Speci men Type: BLOOD SPECIMENOrdering Facility: [facility] Address: [address] [place] [address] Performed By: #### 5 7021-8 ####[facility] [id number] [address] [place] Hematocrit (Bld) [Volume fraction] 40.2 % Normal 36.0-46.0 [facility] Comment on above: Order Comment: Speci men Type: BLOOD SPECIMENOrdering Facility: [facility] Address: [address] [place] [address] Performed By: #### 5 7021-8 ####[facility]ORY[facility] [id number] [place] [address] [place] Hemoglobin (Bld) [Mass/Vol] 12.7 g/dL Normal 11.5-15.5 [facility] Comment on above: Order Comment: Speci men Type: BLOOD SPECIMENOrdering Facility: [facility] Address: [address] [place] [address] Performed By: #### 5 7021-8 ####[facility] [id number] [place] [address] [place] Immature granulocytes (Bld) [#/Vol] 10*3/uL Normal <0.10 [facility] Comment on above: Order Comment: Speci men Type: BLOOD SPECIMENOrdering Facility: [facility] Address: [address] [place] [address] Performed By: #### 5 7021-8 ####[facility] [id number] [address] [place] Immature granulocytes/100 WBC (Bld) 0.1 % Normal [facility] Comment on above: Order Comment: Speci men Type: BLOOD SPECIMENOrdering Facility: [facility] Address: [address] [place] [address] Performed By: #### 5 7021-8 ####[facility]ORYCL[facility] [id number] [place] [address] [facility] [place] Lymphocytes (Bld) [#/Vol] 0.59 10*3/uL Low 1.00-4.00 [facility] Comment on above: Order Comment: Speci men Type: BLOOD SPECIMENOrdering Facility: [facility] Address: [address] [place] [address] Performed By: #### 5 7021-8 ####[facility] [id number] [address] Lymphocytes/100 WBC (Bld) 7.1 % Normal [facility] Comment on above: Order Comment: Speci men Type: BLOOD SPECIMENOrdering Facility: [facility] Address: [address] [place] [address] Performed By: #### 5 7021-8 ####[facility]ORY[facility] [id number] [address] [place] MCH (RBC) [Entitic mass] 26.0 pg Normal 26.0-34.0 [facility] Comment on above: Order Comment: Speci men Type: BLOOD SPECIMENOrdering Facility: [facility] Address: [address] [place] [address] Performed By: #### 5 7021-8 ####[facility]ORYCLIA [id number] [address] STATES [facility] MCHC (RBC) [Mass/Vol] 31.6 g/dL Normal 30.5-36.0 [facility] Comment on above: Order Comment: Speci men Type: BLOOD SPECIMENOrdering Facility: [facility] Address: [address] [place] [address] Performed By: #### 5 7021-8 ####[facility]ORYCL[facility] [id number] [address] MCV (RBC) [Entitic vol] 82.2 fL Normal 80.0-100.0 M [facility] Comment on above: Order Comment: Speci men Type: BLOOD SPECIMENOrdering Facility: [facility] Address: [address] [place] [address] Performed By: #### 5 7021-8 ####[facility]ORYCL[facility] [id number] [address] Monocytes (Bld) [#/Vol] 0.31 10*3/uL Normal <0.87 [facility] Comment on above: Order Comment: Speci men Type: BLOOD SPECIMENOrdering Facility: [facility] Address: [address] [place] [address] Performed By: #### 5 7021-8 ####[facility]ORYCLIA [id number] [place] [address] [place] Monocytes/100 WBC (Bld) 3.7 % Normal [facility] Comment on above: Order Comment: Speci men Type: BLOOD SPECIMENOrdering Facility: [facility] Address: [address] [place] [address] Performed By: #### 5 7021-8 ####[facility]ORYCLIA [id number] [place] [address] [place] Neutrophils (Bld) [#/Vol] 7.36 10*3/uL Normal 1.45-7.50 [facility] Comment on above: Order Comment: Speci men Type: BLOOD SPECIMENOrdering Facility: [facility] Address: [address] [place] [address] Performed By: #### 5 7021-8 ####[facility]ORYCLIA [id number] [place] [address] [place] Neutrophils/100 WBC (Bld) 88.2 % Normal [facility] Comment on above: Order Comment: Speci men Type: BLOOD SPECIMENOrdering Facility: [facility] Address: [address] [place] [address] Performed By: #### 5 7021-8 ####[facility]ORYCLIA [id number] [place] [address] [place] Nucleated RBC (Bld) [#/Vol] 10*3/uL Normal <0.01 [facility] Comment on above: Order Comment: Speci men Type: BLOOD SPECIMENOrdering Facility: [facility] Address: [address] [place] [address] Performed By: #### 5 7021-8 ####[facility]ORYCLIA [id number] [place] [address] [place] Nucleated RBC/100 WBC (Bld) [Ratio] 0.0 /100 WBC Normal [facility] Comment on above: Order Comment: Speci men Type: BLOOD SPECIMENOrdering Facility: [facility] Address: [address] [place] [address] Performed By: #### 5 7021-8 ####[facility]ORYCLIA [id number] [place] [address] [place] Platelet mean volume (Bld) [Entitic vol] 9.2 fL Normal 9.0-12.7 [facility] Comment on above: Order Comment: Speci men Type: BLOOD SPECIMENOrdering Facility: [facility] Address: [address] [place] [address] Performed By: #### 5 7021-8 ####[facility]ORYCLIA [id number] [place] [address] [place] Platelets (Bld) [#/Vol] 202 10*3/uL Normal 150-400 [facility] Comment on above: Order Comment: Speci men Type: BLOOD SPECIMENOrdering Facility: [facility] Address: [address] [place] [address] Performed By: #### 5 7021-8 ####[facility]ORYCLIA [id number] [place] [address] [place] RBC (Bld) [#/Vol] 4.89 10*6/uL Normal 3.90-5.20 [facility] Comment on above: Order Comment: Speci men Type: BLOOD SPECIMENOrdering Facility: [facility] Address: [address] [place] [address] Performed By: #### 5 7021-8 ####[facility]ORYCLIA [id number] [place] [address] [place] WBC (Bld) [#/Vol] 8.35 10*3/uL Normal 3.70-11.00 [facility] Comment on above: Order Comment: Speci men Type: BLOOD SPECIMENOrdering Facility: [facility] Address: [address] [place] [address] Performed By: #### 5 7021-8 ####[facility]ORYCLIA [id number] [place] [address] [place] CONSULT PROGon 08-13-2024 CONSULT PROG Normal [facility] CT ABD/PEL WO IVCONon 2023 CT ABD/PEL WO IVCON Normal [facility] CTA CHEST (NON GATED) W IVCO N PEon 08-13-2024 CTA CHEST (NON GATED) W IVCON PE Normal [facility] Comprehensive metabolic 2000 panelon 08-13-2024 Albumin [Mass/Vol] 3.8 g/dL Low 3.9-4.9 [facility] Comment on above: Order Comment: Speci men Type: BLOOD SPECIMENOrdering Facility: [facility] Address: [address] [place] [address] Performed By: #### 2 4323-8, HSTNT, 3040-3 ####[facility]ORYCLIA [id number] [place] [address] [place] ALP [Catalytic activity/Vol] 58 U/L Normal 34-123 [facility] Comment on above: Order Comment: Speci men Type: BLOOD SPECIMENOrdering Facility: [facility] Address: [address] [place] [address] Performed By: #### 2 4323-8, HSTNT, 3040-3 ####[facility]ORYCLIA [id number] [place] [address] [place] ALT [Catalytic activity/Vol] 17 U/L Normal 7-38 [facility] Comment on above: Order Comment: Speci men Type: BLOOD SPECIMENOrdering Facility: [facility] Address: [address] [place] [address] Performed By: #### 2 4323-8, HSTNT, 3040-3 ####[facility]ORYCLIA [id number] [place] [address] [place] Anion gap [Moles/Vol] 18 mmol/L High 8-15 [facility] Comment on above: Order Comment: Speci men Type: BLOOD SPECIMENOrdering Facility: [facility] Address: [address] [place] [address] Performed By: #### 2 4323-8, HSTNT, 3040-3 ####[facility]ATORYCLIA [id number] [place] [address] [place] AST [Catalytic activity/Vol] 15 U/L Normal 13-35 [facility] Comment on above: Order Comment: Speci men Type: BLOOD SPECIMENOrdering Facility: [facility] Address: [address] [place] [address] Performed By: #### 2 4323-8, HSTNT, 3040-3 ####[facility] LABORATORYCLIA [id number] [place] [address] [place] Bilirubin [Mass/Vol] 0.2 mg/dL Normal 0.2-1.3 [facility] Comment on above: Order Comment: Speci men Type: BLOOD SPECIMENOrdering Facility: [facility] Address: [address] [place] [address] Performed By: #### 2 4323-8, HSTNT, 3040-3 ####[facility] LABORATORYCLIA [id number] [place] [address] [place] Calcium [Mass/Vol] 8.7 mg/dL Normal 8.5-10.2 [facility] Comment on above: Order Comment: Speci men Type: BLOOD SPECIMENOrdering Facility: [facility] Address: [address] [place] [address] Performed By: #### 2 4323-8, HSTNT, 3040-3 ####[facility] LABORATORYCLIA [id number] [place] [address] [place] Chloride [Moles/Vol] 96 mmol/L Low 98-107 [facility] Comment on above: Order Comment: Speci men Type: BLOOD SPECIMENOrdering Facility: [facility] Address: [address] [place] [address] Performed By: #### 2 4323-8, HSTNT, 3040-3 ####[facility] LABORATORYCLIA [id number] [place] [address] [place] CO2 [Moles/Vol] 19 mmol/L Low 22-30 [facility] Comment on above: Order Comment: Speci men Type: BLOOD SPECIMENOrdering Facility: [facility] Address: [address] [place] [address] Performed By: #### 2 4323-8, HSTNT, 3040-3 ####[facility] LABORATORYCLIA [id number] [address] STATES [facility] Creatinine [Mass/Vol] 0.62 mg/dL Normal 0.58-0.96 [facility] Comment on above: Order Comment: Alex mcgovern Type: BLOOD SPECIMENOrdering Facility: [facility] Address: [address] [place], [place] [address] [address] Performed By: #### 2 4323-8, HSTNT, 0-3 ####[facility] LABORATORYCLIA [id number] [address] Creatinine and Glomerular filtration rate.predicted panel (S/P/Bld) 128 mL/min/1.73m??? Normal >=60 [facility] Comment on above: Order Comment: Alex mcgovern Type: BLOOD SPECIMENOrdering Facility: [facility] Address: [address] [place] [address] Result Comment: Cinthya mated Glomerular Filtration Rate (eGFR) is calculated using the 2020 CKD-EPI creatinine equation. This equation utilizes serum creatinine, sex, and age as parameters. The creatinine assay has traceable calibration to isotope dilution-mass spectrometry. Refer to KDIGO guidelines for clinical interpretation. In patients with unstable renal function, e.g. those with acute kidney injury, the eGFR may not accurately reflect actual GFR. Performed By: #### 2 4323-8, HSTNT, 0-3 ####[facility] LABORATORYCLIA [id number] [address] STATES OF [facility] Glucose [Mass/Vol] 95 mg/dL Normal 74-99 [facility] Comment on above: Order Comment: Alex mcgovern Type: BLOOD SPECIMENOrdering Facility: [facility] Address: [address] [place] [address] Result Comment: The [place] Diabetes [employer] (ADA) provides guidance for cutoff values for fasting glucose and random glucose. The ADA defines fasting as no caloric intake for at least 8 hours. Fasting plasma glucose results between 100 to 125 mg/dL indicate increased risk for diabetes (prediabetes).Fasting plasma glucose results greater than or equal to 126 mg/dL meet the criteria for diagnosis of diabetes. In the absence of unequivocal hyperglycemia, results should be confirmed by repeat testing. In a patient with classic symptoms of hyperglycemia or hyperglycemic crisis, random plasma glucose results greater than or equal to 200 mg/dL meet the criteria for diagnosis of diabetes.Reference: Standards of Medical Care in Diabetes 2016, [place] [employer]. Diabetes Care. 2016.39(Suppl 1). Performed By: #### 2 4323-8, HSTNT, 3040-3 ####[facility] LABORATORYCLIA [id number] [place] [address] [place] Potassium [Moles/Vol] 3.8 mmol/L Normal 3.7-5.1 [facility] Comment on above: Order Comment: Alex mcgovern Type: BLOOD SPECIMENOrdering Facility: [facility] Address: [address] [place] [address] Performed By: #### 2 4323-8, HSTNT, 3040-3 ####[facility] LABORATORYCLIA [id number] [place] [address] [place] Protein [Mass/Vol] 7.5 g/dL Normal 6.3-8.0 [facility] Comment on above: Order Comment: Alex mcgovern Type: BLOOD SPECIMENOrdering Facility: [facility] Address: [address] [place] [address] Performed By: #### 2 4323-8, HSTNT, 3040-3 ####[facility] LABORATORYCLIA [id number] [place] [address] [place] Sodium [Moles/Vol] 133 mmol/L Low 136-144 [facility] Comment on above: Order Comment: Alex mcgovern Type: BLOOD SPECIMENOrdering Facility: [facility] Address: [address] [place] [address] Performed By: #### 2 4323-8, HSTNT, 3040-3 ####[facility] LABORATORYCLIA [id number] [place] [address] [place] Urea nitrogen [Mass/Vol] 4 mg/dL Low 7-21 [facility] Comment on above: Order Comment: Alex mcgovern Type: BLOOD SPECIMENOrdering Facility: [facility] Address: [address] [place] [address] Performed By: #### 2 4323-8, HSTNT, 3040-3 ####TH[facility] LABORATORYCLIA [id number] [place] [address] [place] D dimer FEU PPP-mCncon 08-13 Fibrin D-dimer FEU (PPP) [Mass/Vol] 780 ng/mL FEU High <500 [facility] Comment on above: Order Comment: Speci men Type: BLOOD SPECIMENOrdering Facility: [facility] Address: [address] [place] [address] Performed By: #### 4 8065-7 ####[place] LABORATORYCLIA [id number] [address] [place] ECG COMPLETEon 08-13-2024 ECG COMPLETE Normal [facility] ECG COMPLETE Normal [facility] HCG QUALITATIVEon 08-13-2024 HCG, QUALITATIVE Negative Normal Negative [facility] Comment on above: Order Comment: Speci men Type: BLOOD SPECIMENOrdering Facility: [facility] Address: [address] [place] [address] Performed By: #### H CG ####[place] LABORATORYCLIA [id number] [address] [place] HIGH SENSITIVITY TROPONIN To n 08-13-2024 Troponin T.cardiac High sensitivity method [Mass/Vol] <6 Normal <12 [facility] Comment on above: Order Comment: Speci men Type: BLOOD SPECIMENOrdering Facility: [facility] Address: [address] [place] [address] Performed By: #### 2 4323-8, HSTNT, 3040-3 ####[facility] LABORATORYCLIA [id number] [place] [address] [place] Lipase SerPl-cCncon 08-13-20 24 Lipase [Catalytic activity/Vol] 174 U/L High 16-61 [facility] Comment on above: Order Comment: Speci men Type: BLOOD SPECIMENOrdering Facility: [facility] Address: [address] [place] [address] Performed By: #### 2 4323-8, HSTNT, 3040-3 ####[facility] LABORATORYCLIA [id number] [place] [id number] [place] SEPSIS LACTATEon 08-13-2024 Lactate [Moles/Vol] 0.8 mmol/L Normal 0.5-2.0 [facility] Comment on above: Order Comment: Speci men Type: BLOOD SPECIMENOrdering Facility: [facility] Address: [address] [place] [address] Performed By: #### S LACT ####[facility] LABORATORYCLIA [id number] [address] [place] ALLIED HEALTHon 08-12-2024 ALLIED [facility] CASE MANAGEMon 08-12-[address] [facility] CON[facility]-12[facility]PEL W IVCONon 024 CT ABD/PEL W IVCON [facility] NUTRITIONon 08-12-[address] [facility] ALLIED HEALTHon 08-11-2024 ALLIED [facility] CBC panel Auto (Bld)on 08-11 Erythrocyte distribution width (RBC) [Ratio] 16.1 % High 11.5-15.0 [facility] Comment on above: Order Comment: Speci men Type: BLOOD SPECIMENOrdering Facility: [facility] Address: [address] [place] [address] Performed By: #### 5 8410-2 ####[facility] LABORATORYCLIA [id number] [address] [place] Hematocrit (Bld) [Volume fraction] 33.2 % Low 36.0-46.0 [facility] Comment on above: Order Comment: Speci men Type: BLOOD SPECIMENOrdering Facility: [facility] Address: [address] [place] [address] Performed By: #### 5 8410-2 ####[facility] LABORATORYCLIA [id number] [address] [place] Hemoglobin (Bld) [Mass/Vol] 10.4 g/dL Low 11.5-15.5 [facility] Comment on above: Order Comment: Speci men Type: BLOOD SPECIMENOrdering Facility: [facility] Address: [address] [place] [address] Performed By: #### 5 8410-2 ####[facility] LABORATORYCLIA [id number] [address] MCH (RBC) [Entitic mass] 25.8 pg Low 26.0-34.0 [facility] Comment on above: Order Comment: Speci men Type: BLOOD SPECIMENOrdering Facility: [facility] Address: [address] [place] [address] Performed By: #### 5 8410-2 ####[facility] LABORATORYCLIA [id number] [address] MCHC (RBC) [Mass/Vol] 31.3 g/dL Normal 30.5-36.0 [facility] Comment on above: Order Comment: Speci men Type: BLOOD SPECIMENOrdering Facility: [facility] Address: [address] [place] [address] Performed By: #### 5 8410-2 ####[place] LABORATORYCLIA [id number] [address] MCV (RBC) [Entitic vol] 82.4 fL Normal 80.0-100.0 [facility] Comment on above: Order Comment: Speci men Type: BLOOD SPECIMENOrdering Facility: [facility] Address: [address] [place] [address] Performed By: #### 5 8410-2 ####[facility] LABORATORYCLIA [id number] [address] Nucleated RBC (Bld) [#/Vol] 10*3/uL Normal <0.01 [facility] Comment on above: Order Comment: Speci men Type: BLOOD SPECIMENOrdering Facility: [facility] Address: [address] [place] [address] Performed By: #### 5 8410-2 ####[facility] LABORATORYCLIA [id number] [address] Platelet mean volume (Bld) [Entitic vol] 9.6 fL Normal 9.0-12.7 [facility] Comment on above: Order Comment: Speci men Type: BLOOD SPECIMENOrdering Facility: [facility] Address: [address] [place] [address] Performed By: #### 5 8410-2 ####[facility] LABORATORYCLIA [id number] [address] [place] Platelets (Bld) [#/Vol] 175 10*3/uL Normal 150-400 [facility] Comment on above: Order Comment: Speci men Type: BLOOD SPECIMENOrdering Facility: [facility] Address: [address] [place] [address] Performed By: #### 5 8410-2 ####[facility] LABORATORYCLIA [id number] [place] [address] [place] RBC (Bld) [#/Vol] 4.03 10*6/uL Normal 3.90-5.20 [facility] Comment on above: Order Comment: Speci men Type: BLOOD SPECIMENOrdering Facility: [facility] Address: [address] [place] [address] Performed By: #### 5 8410-2 ####[facility] LABORATORYCLIA [id number] [place] [address] [place] WBC (Bld) [#/Vol] 6.42 10*3/uL Normal 3.70-11.00 [facility] Comment on above: Order Comment: Speci men Type: BLOOD SPECIMENOrdering Facility: [facility] Address: [address] [place] [address] Performed By: #### 5 8410-2 ####[facility] LABORATORYCLIA [id number] [address] [place] CONSULT PROGon 08-11-2024 CONSULT PROG Normal [facility] CONSULT PROG Normal [facility] Comprehensive metabolic 2000 panelon 08-11-2024 Albumin [Mass/Vol] 3.4 g/dL Low 3.9-4.9 [facility] Comment on above: Order Comment: Speci men Type: BLOOD SPECIMENOrdering Facility: [facility] Address: [address] [place] [address] Performed By: #### 3 040-3, 08347-5 ####[facility] LABORATORYCLIA [id number] [address] ALP [Catalytic activity/Vol] 46 U/L Normal 34-123 [facility] Comment on above: Order Comment: Speci men Type: BLOOD SPECIMENOrdering Facility: [facility] Address: [address] [place] [address] Performed By: #### 3 040-3, 72451-5 ####[facility] LABORATORYCLIA [id number] [address] ALT [Catalytic activity/Vol] 19 U/L Normal 7-38 [facility] Comment on above: Order Comment: Speci men Type: BLOOD SPECIMENOrdering Facility: [facility] Address: [address] [place] [address] Performed By: #### 3 040-3, 96533-9 ####[facility] LABORATORYCLIA [id number] [address] STATES [facility] Anion gap [Moles/Vol] 10 mmol/L Normal 8-15 [facility] Comment on above: Order Comment: Speci men Type: BLOOD SPECIMENOrdering Facility: [facility] Address: [address] [place] [address] Performed By: #### 3 040-3, ####[facility] LABORATORYCLIA [id number] [address] AST [Catalytic activity/Vol] 16 U/L Normal 13-35 [facility] Comment on above: Order Comment: Speci men Type: BLOOD SPECIMENOrdering Facility: [facility] Address: [address] [place] [address] Performed By: #### 3 040-3, 27610-7 ####[facility] LABORATORYCLIA [id number] [address] Bilirubin [Mass/Vol] 0.3 mg/dL Normal 0.2-1.3 [facility] Comment on above: Order Comment: Speci men Type: BLOOD SPECIMENOrdering Facility: [facility] Address: [address] [place] [address] Performed By: #### 3 040-3, 74452-0 ####[facility] LABORATORYCLIA [id number] [place] [address] [place] Calcium [Mass/Vol] 8.5 mg/dL Normal 8.5-10.2 [facility] Comment on above: Order Comment: Speci men Type: BLOOD SPECIMENOrdering Facility: [facility] Address: [address] [place] [address] [place] [address] Performed By: #### 3 -3, ####[facility] LABORATORYCLIA [id number] [place] [address] [place] Chloride [Moles/Vol] 100 mmol/L Normal 98-107 [facility] Comment on above: Order Comment: Speci men Type: BLOOD SPECIMENOrdering Facility: [facility] Address: [address] [place] [address] [place] [address] Performed By: #### 3 -3, ####[facility] LABORATORYCLIA [id number] [place] [address] [place] CO2 [Moles/Vol] 28 mmol/L Normal 22-30 [facility] Comment on above: Order Comment: Speci men Type: BLOOD SPECIMENOrdering Facility: [facility] Address: [facility] [place] [address] Performed By: #### 3 040-3, ####[facility] LABORATORYCLIA [id number] [place] [address] [place] Creatinine [Mass/Vol] 0.62 mg/dL Normal 0.58-0.96 [facility] Comment on above: Order Comment: Speci men Type: BLOOD SPECIMENOrdering Facility: [facility] Address: [address] [place] [address] [place] [address] Performed By: #### 3 040-3, 06121-1 ####[facility] LABORATORYCLIA [id number] [place] [address] [place] Creatinine and Glomerular filtration rate.predicted panel (S/P/Bld) 128 mL/min/1.73m??? Normal >=60 [facility] Comment on above: Order Comment: Alex mcgovern Type: BLOOD SPECIMENOrdering Facility: [facility] Address: [address] [place] [address] Result Comment: Cinthya mated Glomerular Filtration Rate (eGFR) is calculated using the 2020 CKD-EPI creatinine equation. This equation utilizes serum creatinine, sex, and age as parameters. The creatinine assay has traceable calibration to isotope dilution-mass spectrometry. Refer to KDIGO guidelines for clinical interpretation. In patients with unstable renal function, e.g. those with acute kidney injury, the eGFR may not accurately reflect actual GFR. Performed By: #### 3 040-3, 43719-4 ####[place] LABORATORYCLIA [id number] [place] [id number] [place] Glucose [Mass/Vol] 85 mg/dL Normal 74-99 [facility] Comment on above: Order Comment: Alex mcgovern Type: BLOOD SPECIMENOrdering Facility: [facility] Address: [address] [place] [address] Result Comment: The [place] Diabetes Association (ADA) provides guidance for cutoff values for fasting glucose and random glucose. The ADA defines fasting as no caloric intake for at least 8 hours. Fasting plasma glucose results between 100 to 125 mg/dL indicate increased risk for diabetes (prediabetes).Fasting plasma glucose results greater than or equal to 126 mg/dL meet the criteria for diagnosis of diabetes. In the absence of unequivocal hyperglycemia, results should be confirmed by repeat testing. In a patient with classic symptoms of hyperglycemia or hyperglycemic crisis, random plasma glucose results greater than or equal to 200 mg/dL meet the criteria for diagnosis of diabetes.Reference: Standards of Medical Care in Diabetes 2016, [place] [employer]. Diabetes Care. 2016.39(Suppl 1). Performed By: #### 3 040-3, 94330-6 ####[place] LABORATORYCLIA [id number] [place] [address] [place] Potassium [Moles/Vol] 3.3 mmol/L Low 3.7-5.1 [facility] Comment on above: Order Comment: Alex mcgovern Type: BLOOD SPECIMENOrdering Facility: [facility] Address: [address] [place] [id number] Performed By: #### 3 040-3, 69809-2 ####[place] LABORATORYCLIA [id number] [place] [address] [place] Protein [Mass/Vol] 6.0 g/dL Low 6.3-8.0 [facility] Comment on above: Order Comment: Speci men Type: BLOOD SPECIMENOrdering Facility: [facility] Address: [address] [place] [address] Performed By: #### 3 040-3, 90758-6 ####[facility] LABORATORYCLIA [id number] [place] [address] [place] Sodium [Moles/Vol] 138 mmol/L Normal 136-144 [facility] Comment on above: Order Comment: Speci men Type: BLOOD SPECIMENOrdering Facility: [facility] Address: [address] [place] [address] Performed By: #### 3 040-3, 39020-7 ####[facility] LABORATORYCLIA [id number] [address] [place] Urea nitrogen [Mass/Vol] 4 mg/dL Low 7-21 [facility] Comment on above: Order Comment: Speci men Type: BLOOD SPECIMENOrdering Facility: [facility] Address: [address] [place] [address] Performed By: #### 3 040-3, 47070-5 ####[facility] LABORATORYCLIA [id number] [address] [place] Lipase SerPl-cCncon 08-11-20 24 Lipase [Catalytic activity/Vol] 228 U/L High 16-61 [facility] Comment on above: Order Comment: Speci men Type: BLOOD SPECIMENOrdering Facility: [facility] Address: [address] [place] [address] Performed By: #### 3 040-3, 94686-4 ####[facility] LABORATORYCLIA [id number] [place] [address] [place] NURSING PROGon 08-11-[address] [facility] XR ABD 2V SUPINE W UPR/DECUB /CTLon 08-11-2024 XR ABD 2V SUPINE W UPR/DECUB/CTL Normal [facility] CASE MANAGEMon 08-10-2024 CASE MANAGEM Normal [facility] CBC panel Auto (Bld)on 08-10 Erythrocyte distribution width (RBC) [Ratio] 16.4 % High 11.5-15.0 [facility] Comment on above: Order Comment: Speci men Type: BLOOD SPECIMENOrdering Facility: [facility] Address: [address] [place] [address] Performed By: #### 5 8410-2 ####[facility] LABORATORYCLIA [id number] [address] Hematocrit (Bld) [Volume fraction] 33.4 % Low 36.0-46.0 [facility] Comment on above: Order Comment: Speci men Type: BLOOD SPECIMENOrdering Facility: [facility] Address: [address] [place] [address] Performed By: #### 5 8410-2 ####[facility] LABORATORYCLIA [id number] [address] Hemoglobin (Bld) [Mass/Vol] 10.7 g/dL Low 11.5-15.5 [facility] Comment on above: Order Comment: Speci men Type: BLOOD SPECIMENOrdering Facility: [facility] Address: [address] [place] [address] Performed By: #### 5 8410-2 ####[facility] LABORATORYCLIA [id number] [address] MCH (RBC) [Entitic mass] 26.2 pg Normal 26.0-34.0 [facility] Comment on above: Order Comment: Speci men Type: BLOOD SPECIMENOrdering Facility: [facility] Address: [address] [place] [address] Performed By: #### 5 8410-2 ####[place] LABORATORYCLIA [id number] [address] MCHC (RBC) [Mass/Vol] 32.0 g/dL Normal 30.5-36.0 [facility] Comment on above: Order Comment: Speci men Type: BLOOD SPECIMENOrdering Facility: [facility] Address: [address] [place] [address] Performed By: #### 5 8410-2 ####[facility] LABORATORYCLIA [id number] [place] [address] [place] MCV (RBC) [Entitic vol] 81.7 fL Normal 80.0-100.0 [facility] Comment on above: Order Comment: Speci men Type: BLOOD SPECIMENOrdering Facility: [facility] Address: [address] [place] [address] Performed By: #### 5 8410-2 ####[facility] LABORATORYCLIA [id number] [place] [address] [place] Nucleated RBC (Bld) [#/Vol] 10*3/uL Normal <0.01 [facility] Comment on above: Order Comment: Speci men Type: BLOOD SPECIMENOrdering Facility: [facility] Address: [address] [place] [address] Performed By: #### 5 8410-2 ####[facility] LABORATORYCLIA [id number] [address] [place] Platelet mean volume (Bld) [Entitic vol] 9.4 fL Normal 9.0-12.7 [facility] Comment on above: Order Comment: Speci men Type: BLOOD SPECIMENOrdering Facility: [facility] Address: [address] [place] [address] Performed By: #### 5 8410-2 ####[facility] LABORATORYCLIA [id number] [address] [place] Platelets (Bld) [#/Vol] 176 10*3/uL Normal 150-400 [facility] Comment on above: Order Comment: Speci men Type: BLOOD SPECIMENOrdering Facility: [facility] Address: [address] [place] [address] Performed By: #### 5 8410-2 ####[facility] LABORATORYCLIA [id number] [address] [place] RBC (Bld) [#/Vol] 4.09 10*6/uL Normal 3.90-5.20 [facility] Comment on above: Order Comment: Speci men Type: BLOOD SPECIMENOrdering Facility: [facility] Address: [address] [place] [address] Performed By: #### 5 8410-2 ####[facility] LABORATORYCLIA [id number] [place] [address] [place] WBC (Bld) [#/Vol] 6.23 10*3/uL Normal 3.70-11.00 [facility] Comment on above: Order Comment: Speci men Type: BLOOD SPECIMENOrdering Facility: [facility] Address: [facility] [place] [address] Performed By: #### 5 8410-2 ####[facility] LABORATORYCLIA [id number] [address] CONSULT PROGon 08-10-2024 CONSULT PRO Normal [facility] CONSULT PROG Normal [facility] Comprehensive metabolic 2000 panelon 08-10-2024 Albumin [Mass/Vol] 3.3 g/dL Low 3.9-4.9 [facility] Comment on above: Order Comment: Speci men Type: BLOOD SPECIMENOrdering Facility: [facility] Address: [address] [place] [address] [place] [address] Performed By: #### 3 040-3, 90010-7 ####[facility] LABORATORYCLIA [id number] [address] [place] ALP [Catalytic activity/Vol] 46 U/L Normal 34-123 [facility] Comment on above: Order Comment: Speci men Type: BLOOD SPECIMENOrdering Facility: [facility] Address: [address] [place] [address] [place] [address] Performed By: #### 3 040-3, 74767-3 ####[facility] LABORATORYCLIA [id number] [address] ALT [Catalytic activity/Vol] 22 U/L Normal 7-38 [facility] Comment on above: Order Comment: Speci men Type: BLOOD SPECIMENOrdering Facility: [facility] Address: [address] [place] [address] Performed By: #### 3 040-3, 56853-4 ####[facility] LABORATORYCLIA [id number] [address] [facility] Anion gap [Moles/Vol] 12 mmol/L Normal 8-15 [facility] Comment on above: Order Comment: Speci men Type: BLOOD SPECIMENOrdering Facility: [facility] Address: [address] [place] [address] Performed By: #### 3 040-3, ####[facility] LABORATORYCLIA [id number] [place] [address] [place] AST [Catalytic activity/Vol] 24 U/L Normal 13-35 [facility] Comment on above: Order Comment: Speci men Type: BLOOD SPECIMENOrdering Facility: [facility] Address: [address] [facility] [facility] [place] [address] Performed By: #### 3 040-3, ####[facility] LABORATORYCLIA [id number] [address] [place] Bilirubin [Mass/Vol] 0.2 mg/dL Normal 0.2-1.3 [facility] Comment on above: Order Comment: Speci men Type: BLOOD SPECIMENOrdering Facility: [facility] Address: [address] [place] [address] Performed By: #### 3 040-3, ####[facility] LABORATORYCLIA [id number] [address] STATES [facility] Calcium [Mass/Vol] 8.6 mg/dL Normal 8.5-10.2 [facility] Comment on above: Order Comment: Speci men Type: BLOOD SPECIMENOrdering Facility: [facility] Address: [address] [place] [address] Performed By: #### 3 040-3, ####[facility] LABORATORYCLIA [id number] [place] [address] [place] Chloride [Moles/Vol] 102 mmol/L Normal 98-107 [facility] Comment on above: Order Comment: Speci men Type: BLOOD SPECIMENOrdering Facility: [facility] Address: [address] [place] [address] Performed By: #### 3 040-3, ####[facility] LABORATORYCLIA [id number] [place] [address] [place] CO2 [Moles/Vol] 26 mmol/L Normal 22-30 [facility] Comment on above: Order Comment: Specgaston mcgovern Type: BLOOD SPECIMENOrdering Facility: [facility] Address: [address] [place] [address] Performed By: #### 3 040-3, 89025-4 ####TH[facility] LABORATORYCLIA [id number] [place] [address] [place] Creatinine [Mass/Vol] 0.58 mg/dL Normal 0.58-0.96 [facility] Comment on above: Order Comment: Alex men Type: BLOOD SPECIMENOrdering Facility: [facility] Address: [address] [place] [address] Performed By: #### 3 040-3, 35792-5 ####TH[facility] LABORATORYCLIA [id number] [address] Creatinine and Glomerular filtration rate.predicted panel (S/P/Bld) 130 mL/min/1.73m??? Normal >=60 [facility] Comment on above: Order Comment: Alex mcgovern Type: BLOOD SPECIMENOrdering Facility: [facility] Address: [address] [place] [address] Result Comment: Cinthya mated Glomerular Filtration Rate (eGFR) is calculated using the 2020 CKD-EPI creatinine equation. This equation utilizes serum creatinine, sex, and age as parameters. The creatinine assay has traceable calibration to isotope dilution-mass spectrometry. Refer to KDIGO guidelines for clinical interpretation. In patients with unstable renal function, e.g. those with acute kidney injury, the eGFR may not accurately reflect actual GFR. Performed By: #### 3 040-3, 63720-8 ####TH[facility] LABORATORYCLIA [id number] [place] [id number] [place] Glucose [Mass/Vol] 113 mg/dL High 74-99 [facility] Comment on above: Order Comment: Alex shaniqua Type: BLOOD SPECIMENOrdering Facility: [facility] Address: [address] [place] [address] Result Comment: The [place] Diabetes [employer] (ADA) provides guidance for cutoff values for fasting glucose and random glucose. The ADA defines fasting as no caloric intake for at least 8 hours. Fasting plasma glucose results between 100 to 125 mg/dL indicate increased risk for diabetes (prediabetes).Fasting plasma glucose results greater than or equal to 126 mg/dL meet the criteria for diagnosis of diabetes. In the absence of unequivocal hyperglycemia, results should be confirmed by repeat testing. In a patient with classic symptoms of hyperglycemia or hyperglycemic crisis, random plasma glucose results greater than or equal to 200 mg/dL meet the criteria for diagnosis of diabetes.Reference: Standards of Medical Care in Diabetes 2016, [place] [employer] Association. Diabetes Care. 2016.39(Suppl 1). Performed By: #### 3 040-3, 84508-7 ####[facility] LABORATORYCLIA [id number] [place] [address] [place] Potassium [Moles/Vol] 3.0 mmol/L Low 3.7-5.1 [facility] Comment on above: Order Comment: Alex mcgovern Type: BLOOD SPECIMENOrdering Facility: [facility] Address: [address] [place] [address] Performed By: #### 3 -, ####[facility] LABORATORYCLIA [id number] [place] [address] [place] Protein [Mass/Vol] 5.8 g/dL Low 6.3-8.0 [facility] Comment on above: Order Comment: Alex mcgovern Type: BLOOD SPECIMENOrdering Facility: [facility] Address: [address] [place] [address] Performed By: #### 3 -3, 14474-6 ####[facility] LABORATORYCLIA [id number] [place] [address] [place] Sodium [Moles/Vol] 140 mmol/L Normal 136-144 [facility] Comment on above: Order Comment: Alex mcgovern Type: BLOOD SPECIMENOrdering Facility: [facility] Address: [address] [place] [address] Performed By: #### 3 040-3, 15920-2 ####[facility] LABORATORYCLIA [id number] [place] [address] [place] Urea nitrogen [Mass/Vol] mg/dL Low 7-21 [facility] Comment on above: Order Comment: Speci men Type: BLOOD SPECIMENOrdering Facility: [facility] Address: [address] [place] [address] Performed By: #### 3 040-3, 45840-2 ####[facility] LABORATORYCLIA [id number] [address] [place] Albumin [Mass/Vol] 3.1 g/dL Low 3.9-4.9 [facility] Comment on above: Order Comment: Speci men Type: BLOOD SPECIMENOrdering Facility: [facility] Address: [address] [place] [address] Performed By: #### 2 4323-8 ####[facility] LABORATORYCLIA [id number] [address] ALP [Catalytic activity/Vol] 46 U/L Normal 34-123 [facility] Comment on above: Order Comment: Speci men Type: BLOOD SPECIMENOrdering Facility: [facility] Address: [address] [place] [address] Performed By: #### 2 4323-8 ####TH[facility] LABORATORYCLIA [id number] [address] STATES [facility] ALT [Catalytic activity/Vol] Normal [facility] Comment on above: Order Comment: Speci men Type: BLOOD SPECIMENOrdering Facility: [facility] Address: [address] [place] [address] Result Comment: Unab le to assay due to interference from hemolysis. Suggest reorder as clinically indicated. Performed By: #### 2 4323-8 ####[facility] LABORATORYCLIA [id number] [address] STATES [facility] Anion gap [Moles/Vol] 17 mmol/L High 8-15 [facility] Comment on above: Order Comment: Speci men Type: BLOOD SPECIMENOrdering Facility: [facility] Address: [address] [place] [address] Performed By: #### 2 4323-8 ####TH[facility] LABORATORYCLIA [id number] [address] [place] AST [Catalytic activity/Vol] Normal [facility] Comment on above: Order Comment: Speci men Type: BLOOD SPECIMENOrdering Facility: [facility] Address: [address] [place] [address] Result Comment: Unab le to assay due to interference from hemolysis. Suggest reorder as clinically indicated. Performed By: #### 2 4323-8 ####[facility] LABORATORYCLIA [id number] [place] [address] [place] Bilirubin [Mass/Vol] 0.3 mg/dL Normal 0.2-1.3 [facility] Comment on above: Order Comment: Speci men Type: BLOOD SPECIMENOrdering Facility: [facility] Address: [address] [place] [address] Performed By: #### 2 4323-8 ####TH[facility] LABORATORYCLIA [id number] [place] [address] [place] Calcium [Mass/Vol] 8.5 mg/dL Normal 8.5-10.2 [facility] Comment on above: Order Comment: Speci men Type: BLOOD SPECIMENOrdering Facility: [facility] Address: [address] [place] [address] Performed By: #### 2 4323-8 ####TH[facility] LABORATORYCLIA [id number] [place] [address] [place] Chloride [Moles/Vol] 101 mmol/L Normal 98-107 [facility] Comment on above: Order Comment: Speci men Type: BLOOD SPECIMENOrdering Facility: [facility] Address: [address] [place] [address] Performed By: #### 2 4323-8 ####TH[facility] LABORATORYCLIA [id number] [place] [address] [place] CO2 [Moles/Vol] 19 mmol/L Low 22-30 [facility] Comment on above: Order Comment: Speci men Type: BLOOD SPECIMENOrdering Facility: [facility] Address: [address] [place] [address] Performed By: #### 2 4323-8 ####TH[facility] LABORATORYCLIA [id number] [place] [address] [place] Creatinine [Mass/Vol] 0.59 mg/dL Normal 0.58-0.96 [facility] Comment on above: Order Comment: Singaston mcgovern Type: BLOOD SPECIMENOrdering Facility: [facility] Address: [address] [place] [address] Performed By: #### 2 4323-8 ####THOM[facility] LABORATORYCLIA [id number] [place] [id number] [place] Creatinine and Glomerular filtration rate.predicted panel (S/P/Bld) 129 mL/min/1.73m??? Normal >=60 [facility] Comment on above: Order Comment: Singaston mcgovern Type: BLOOD SPECIMENOrdering Facility: [facility] Address: [address] [place] [address] Result Comment: Cinthya mated Glomerular Filtration Rate (eGFR) is calculated using the 2020 CKD-EPI creatinine equation. This equation utilizes serum creatinine, sex, and age as parameters. The creatinine assay has traceable calibration to isotope dilution-mass spectrometry. Refer to KDIGO guidelines for clinical interpretation. In patients with unstable renal function, e.g. those with acute kidney injury, the eGFR may not accurately reflect actual GFR. Performed By: #### 2 4323-8 ####TH[facility] LABORATORYCLIA [id number] [place] [id number] [place] Glucose [Mass/Vol] 112 mg/dL High 74-99 [facility] Comment on above: Order Comment: Alex mcgovern Type: BLOOD SPECIMENOrdering Facility: [facility] Address: [address] [place] [address] Result Comment: The [place] Diabetes Association (ADA) provides guidance for cutoff values for fasting glucose and random glucose. The ADA defines fasting as no caloric intake for at least 8 hours. Fasting plasma glucose results between 100 to 125 mg/dL indicate increased risk for diabetes (prediabetes).Fasting plasma glucose results greater than or equal to 126 mg/dL meet the criteria for diagnosis of diabetes. In the absence of unequivocal hyperglycemia, results should be confirmed by repeat testing. In a patient with classic symptoms of hyperglycemia or hyperglycemic crisis, random plasma glucose results greater than or equal to 200 mg/dL meet the criteria for diagnosis of diabetes.Reference: Standards of Medical Care in Diabetes 2016, [place] [employer]. Diabetes Care. 2016.39(Suppl 1). Performed By: #### 2 4323-8 ####THOM[facility]ON LABORATORYCLIA [id number] [place] [address] [place] Potassium [Moles/Vol] Normal [facility] Comment on above: Order Comment: Speci men Type: BLOOD SPECIMENOrdering Facility: [facility] Address: [address] [place] [address] Result Comment: Unab le to assay due to interference from hemolysis. Suggest reorder as clinically indicated. Performed By: #### 2 4323-8 ####TH[facility] LABORATORYCLIA [id number] [place] [address] [place] Protein [Mass/Vol] 6.2 g/dL Low 6.3-8.0 [facility] Comment on above: Order Comment: Speci men Type: BLOOD SPECIMENOrdering Facility: [facility] Address: [address] [place] [address] Performed By: #### 2 4323-8 ####THOM[facility] LABORATORYCLIA [id number] [place] [address] [place] Sodium [Moles/Vol] 137 mmol/L Normal 136-144 [facility] Comment on above: Order Comment: Speci men Type: BLOOD SPECIMENOrdering Facility: [facility] Address: [address] [place] [address] Performed By: #### 2 4323-8 ####TH[facility] LABORATORYCLIA [id number] [place] [address] [place] Urea nitrogen [Mass/Vol] mg/dL Low 7-21 [facility] Comment on above: Order Comment: Speci men Type: BLOOD SPECIMENOrdering Facility: [facility] Address: [address] [place] [address] Performed By: #### 2 4323-8 ####THOMPS[facility] LABORATORYCLIA [id number] [place] [address] [place] Lipase SerPl-cCncon 08-10-20 24 Lipase [Catalytic activity/Vol] 165 U/L High 16-61 [facility] Comment on above: Order Comment: Speci men Type: BLOOD SPECIMENOrdering Facility: [facility] Address: [address] [place] [address] Performed By: #### 3 040-3, 24109-0 ####[facility] LABORATORYCLIA [id number] [place] [address] [place] US DVT UPPER LTon 08-10-2024 US DVT UPPER LT Normal [facility] ANES POSTPROC EVALon 024 ANES POSTPROC EVAL Normal [facility] ANES PRE-OPon 08-09-2024 ANES PRE-OP Normal [facility] BRIEF OP NOTon 08-09-2024 BRIEF OP NOT Normal [facility] CBC panel Auto (Bld)on 08-09 Erythrocyte distribution width (RBC) [Ratio] 16.2 % High 11.5-15.0 [facility] Comment on above: Order Comment: Speci men Type: BLOOD SPECIMENOrdering Facility: [facility] Address: [address] [place] [address] Performed By: #### 5 8410-2 ####THOM[facility]ON LABORATORYCLIA [id number] [place] [address] [place] Hematocrit (Bld) [Volume fraction] 35.6 % Low 36.0-46.0 [facility] Comment on above: Order Comment: Speci men Type: BLOOD SPECIMENOrdering Facility: [facility] Address: [address] [place] [address] Performed By: #### 5 8410-2 ####[place] LABORATORYCLIA [id number] [place] [address] [place] Hemoglobin (Bld) [Mass/Vol] 11.6 g/dL Normal 11.5-15.5 [facility] Comment on above: Order Comment: Speci men Type: BLOOD SPECIMENOrdering Facility: [facility] Address: [address] [place] [address] Performed By: #### 5 8410-2 ####TH[facility] LABORATORYCLIA [id number] [place] [address] [place] MCH (RBC) [Entitic mass] 26.1 pg Normal 26.0-34.0 [facility] Comment on above: Order Comment: Speci men Type: BLOOD SPECIMENOrdering Facility: [facility] Address: [address] [place] [address] Performed By: #### 5 8410-2 ####TH[facility] LABORATORYCLIA [id number] [address] MCHC (RBC) [Mass/Vol] 32.6 g/dL Normal 30.5-36.0 [facility] Comment on above: Order Comment: Speci men Type: BLOOD SPECIMENOrdering Facility: [facility] Address: [address] [place] [address] Performed By: #### 5 8410-2 ####TH[facility] LABORATORYCLIA [id number] [address] MCV (RBC) [Entitic vol] 80.0 fL Normal 80.0-100.0 [facility] Comment on above: Order Comment: Speci men Type: BLOOD SPECIMENOrdering Facility: [facility] Address: [address] [place] [address] Performed By: #### 5 8410-2 ####TH[facility] LABORATORYCLIA [id number] [address] Nucleated RBC (Bld) [#/Vol] 10*3/uL Normal <0.01 [facility] Comment on above: Order Comment: Speci men Type: BLOOD SPECIMENOrdering Facility: [facility] Address: [address] [place] [address] Performed By: #### 5 8410-2 ####[facility] LABORATORYCLIA [id number] [address] Platelet mean volume (Bld) [Entitic vol] 9.3 fL Normal 9.0-12.7 [facility] Comment on above: Order Comment: Speci men Type: BLOOD SPECIMENOrdering Facility: [facility] Address: [address] [place] [address] Performed By: #### 5 8410-2 ####[facility] LABORATORYCLIA [id number] [address] [place] Platelets (Bld) [#/Vol] 193 10*3/uL Normal 150-400 [facility] Comment on above: Order Comment: Speci men Type: BLOOD SPECIMENOrdering Facility: [facility] Address: [address] [place] [address] Performed By: #### 5 8410-2 ####[place] LABORATORYCLIA [id number] [address] STATES [facility] RBC (Bld) [#/Vol] 4.45 10*6/uL Normal 3.90-5.20 [facility] Comment on above: Order Comment: Speci men Type: BLOOD SPECIMENOrdering Facility: [facility] Address: [address] [place] [address] Performed By: #### 5 8410-2 ####[place] LABORATORYCLIA [id number] [address] [place] [facility] WBC (Bld) [#/Vol] 4.89 10*3/uL Normal 3.70-11.00 [facility] Comment on above: Order Comment: Speci men Type: BLOOD SPECIMENOrdering Facility: [facility] Address: [address] [place] [address] Performed By: #### 5 8410-2 ####[place] LABORATORYCLIA [id number] [address] [facility] CONSULT PROGon 08-09-2024 CONSULT PROG Normal [facility] Comprehensive metabolic 2000 panelon 08-09-2024 Albumin [Mass/Vol] 3.6 g/dL Low 3.9-4.9 [facility] Comment on above: Order Comment: Speci men Type: BLOOD SPECIMENOrdering Facility: [facility] Address: [address] [place] [address] Performed By: #### 2 4323-8, 3040-3 ####[facility] LABORATORYCLIA [id number] [address] ALP [Catalytic activity/Vol] 47 U/L Normal 34-123 [facility] Comment on above: Order Comment: Speci men Type: BLOOD SPECIMENOrdering Facility: [facility] Address: [address] [place] [address] Performed By: #### 2 4323-8, 3040-3 ####[facility] LABORATORYCLIA [id number] [place] [address] [place] ALT [Catalytic activity/Vol] 9 U/L Normal 7-38 [facility] Comment on above: Order Comment: Speci men Type: BLOOD SPECIMENOrdering Facility: [facility] Address: [address] [place] [address] Performed By: #### 2 4323-8, 3040-3 ####[facility] LABORATORYCLIA [id number] [place] [address] [place] Anion gap [Moles/Vol] 12 mmol/L Normal 8-15 [facility] Comment on above: Order Comment: Speci men Type: BLOOD SPECIMENOrdering Facility: [facility] Address: [address] [place] [address] Performed By: #### 2 4323-8, 3039-3 ####[facility] LABORATORYCLIA [id number] [address] AST [Catalytic activity/Vol] 12 U/L Low 13-35 [facility] Comment on above: Order Comment: Speci men Type: BLOOD SPECIMENOrdering Facility: [facility] Address: [address] [place] [address] Performed By: #### 2 4323-8, 0-3 ####[facility] LABORATORYCLIA [id number] [address] [place] Bilirubin [Mass/Vol] 0.3 mg/dL Normal 0.2-1.3 [facility] Comment on above: Order Comment: Speci men Type: BLOOD SPECIMENOrdering Facility: [facility] Address: [address] [place] [address] Performed By: #### 2 4323-8, 3040-3 ####[facility] LABORATORYCLIA [id number] [address] [place] [facility] Calcium [Mass/Vol] 8.5 mg/dL Normal 8.5-10.2 [facility] Comment on above: Order Comment: Speci men Type: BLOOD SPECIMENOrdering Facility: [facility] Address: [address] [place] [address] Performed By: #### 2 4323-8, 3040-3 ####[facility] LABORATORYCLIA [id number] [place] [address] [place] Chloride [Moles/Vol] 102 mmol/L Normal 98-107 [facility] Comment on above: Order Comment: Alex mcgovern Type: BLOOD SPECIMENOrdering Facility: [facility] Address: [address] [place] [address] Performed By: #### 2 4323-8, 3040-3 ####[facility] LABORATORYCLIA [id number] [place] [address] [place] CO2 [Moles/Vol] 26 mmol/L Normal 22-30 [facility] Comment on above: Order Comment: Alex mcgovern Type: BLOOD SPECIMENOrdering Facility: [facility] Address: [address] [place] [address] Performed By: #### 2 4323-8, 3040-3 ####[facility] LABORATORYCLIA [id number] [place] [address] [place] Creatinine [Mass/Vol] 0.63 mg/dL Normal 0.58-0.96 [facility] Comment on above: Order Comment: Sini shaniqua Type: BLOOD SPECIMENOrdering Facility: [facility] Address: [address] [place] [address] Performed By: #### 2 4323-8, 3040-3 ####[facility] LABORATORYCLIA [id number] [address] Creatinine and Glomerular filtration rate.predicted panel (S/P/Bld) 127 mL/min/1.73m??? Normal >=60 [facility] [place] Comment on above: Order Comment: Sini men Type: BLOOD SPECIMENOrdering Facility: [facility] Address: [address] [place] [address] Result Comment: Cinthya mated Glomerular Filtration Rate (eGFR) is calculated using the 2020 CKD-EPI creatinine equation. This equation utilizes serum creatinine, sex, and age as parameters. The creatinine assay has traceable calibration to isotope dilution-mass spectrometry. Refer to KDIGO guidelines for clinical interpretation. In patients with unstable renal function, e.g. those with acute kidney injury, the eGFR may not accurately reflect actual GFR. Performed By: #### 2 4323-8, 3040-3 ####[facility] LABORATORYCLIA [id number] [place] [address] [place] Glucose [Mass/Vol] 108 mg/dL High 74-99 [facility] Comment on above: Order Comment: Alex mcgovern Type: BLOOD SPECIMENOrdering Facility: [facility] Address: [address] [place] [address] Result Comment: The [place] Diabetes Association (ADA) provides guidance for cutoff values for fasting glucose and random glucose. The ADA defines fasting as no caloric intake for at least 8 hours. Fasting plasma glucose results between 100 to 125 mg/dL indicate increased risk for diabetes (prediabetes).Fasting plasma glucose results greater than or equal to 126 mg/dL meet the criteria for diagnosis of diabetes. In the absence of unequivocal hyperglycemia, results should be confirmed by repeat testing. In a patient with classic symptoms of hyperglycemia or hyperglycemic crisis, random plasma glucose results greater than or equal to 200 mg/dL meet the criteria for diagnosis of diabetes.Reference: Standards of Medical Care in Diabetes 2016, [place] [employer]. Diabetes Care. 2016.39(Suppl 1). Performed By: #### 2 4323-8, 3039-3 ####[facility] LABORATORYCLIA [id number] [place] [address] [place] Potassium [Moles/Vol] 2.7 mmol/L Low 3.7-5.1 [facility] Comment on above: Order Comment: Alex mcgovern Type: BLOOD SPECIMENOrdering Facility: [facility] Address: [address] [place] [address] Performed By: #### 2 4323-8, 0-3 ####[facility] LABORATORYCLIA [id number] [place] [address] [place] Protein [Mass/Vol] 6.4 g/dL Normal 6.3-8.0 [facility] Comment on above: Order Comment: Alex mcgovern Type: BLOOD SPECIMENOrdering Facility: [facility] Address: [address] [place] [id number] Performed By: #### 2 4323-8, 0-3 ####[facility] LABORATORYCLIA [id number] [place] [address] [place] Sodium [Moles/Vol] 140 mmol/L Normal 136-144 [facility] Comment on above: Order Comment: Speci men Type: BLOOD SPECIMENOrdering Facility: [facility] Address: [address] [place] [address] Performed By: #### 2 4323-8, 3040-3 ####[facility] LABORATORYCLIA [id number] [place] [id number] [place] Urea nitrogen [Mass/Vol] mg/dL Low 7-21 [facility] Comment on above: Order Comment: Speci men Type: BLOOD SPECIMENOrdering Facility: [facility] Address: [address] [place] [address] Performed By: #### 2 4323-8, 3040-3 ####[facility]ORATORYCLIA [id number] [place] [address] [place] Lipase SerPl-cCncon 08-09-20 24 Lipase [Catalytic activity/Vol] 297 U/L High 16-61 [facility] Comment on above: Order Comment: Speci men Type: BLOOD SPECIMENOrdering Facility: [facility] Address: [address] [place] [address] Performed By: #### 2 4323-8, 3040-3 ####[facility] LABORATORYCLIA [id number] [place] [id number] [place] NUTRITIONon 08-09-2024 NUTRITION Normal [facility] OPERATIVE NOon 08-09-2024 OPERATIVE NO Normal [facility] POTASSIUMon 08-09-2024 Potassium [Moles/Vol] 3.3 mmol/L Low 3.7-5.1 [facility] Comment on above: Order Comment: Speci men Type: BLOOD SPECIMENOrdering Facility: [facility] Address: [address] [place] [address] Performed By: #### K 1 ####[facility] LABORATORYCLIA [id number] [place] [address] [place] PT panel Coag (PPP)on 2023 INR Coag (PPP) [Relative time] 1.2 {INR} Normal 0.9-1.3 [facility] Comment on above: Order Comment: Alex mcgovern Type: BLOOD SPECIMENOrdering Facility: [facility] Address: [address] [place] [address] Result Comment: Tana min K Antagonist (VKA) Therapeutic Range: INR 2 to 3 (Target INR of 2.5)Note: For patients treated with VKA drugs, such as warfarin, the [place] [employer] 2012 Guideline recommends a therapeutic INR range of 2 to 3 (target INR of 2.5). This recommendation includes high-risk patients with antiphospholipid syndrome with previous arterial or venous thromboembolism, current-generation mechanical or bioprosthetic aortic heart valve replacement.Note: Patients with mechanical aortic valve replacement and additional risk factors for thromboembolic events (atrial fibrillation, previous thromboembolism, LV dysfunction, hypercoagulable conditions) or an older generation mechanical AVR (i.e., ball in-Cage) or any mechanical MVR should have a INR therapeutic range of 2.5 to 3.5 (target INR of 3).Sarah GH, et al. Chest 2012, 141:7S-47SNishimura RA, et al. [facility] 2017, 70: 252-289 Performed By: #### 3 4528-0 ####[facility] [place] [facility]ORATORYCLIA [id number] [place] [address] [place] PT Coag (PPP) [Time] 13.3 s High 9.7-13.0 [facility] Comment on above: Order Comment: Alex mcgovern Type: BLOOD SPECIMENOrdering Facility: [facility] Address: [address] [place] [address] Performed By: #### 3 4528-0 ####[facility] [facility]ORATORYCLIA [id number] [place] [address] [place] SURGICAL PATHOLOGYon 024 CASE REPORT Normal [facility] Comment on above: Order Comment: Alex mcgovern Type: TISSUE SPECIMENOrdering Facility: [facility] Address: [address] [place] [address] Result Comment: Surg ical Pathology Report Case: [id number] Provider: Maty Lopez DO Collected: 08/09/2024 08:09 AMOrdering Location: [facility] Surgery Received: 08/09/2024 12:15 PMPathologist: Shannon Vance MDSpecimen: Gallbladder Performed By: #### S ####[facility] LABCLIA [id number] [address] [place] CLINICAL HISTORY Normal [facility] Comment on above: Order Comment: Speci men Type: TISSUE SPECIMENOrdering Facility: [facility] Address: [address] [place] [address] Result Comment: Pre- op diagnosis:Biliary dyskinesia [K82.8] Performed By: #### S ####[facility] LABCLIA [id number] [address] [place] FINAL DIAGNOSIS Normal [facility] Comment on above: Order Comment: Speci men Type: TISSUE SPECIMENOrdering Facility: [facility] Address: [address] [place] [address] Result Comment: A. G allbladder, cholecystectomy:- Mild chronic cholecystitis. Performed By: #### S ####[facility] LABCLIA [id number] [address] [place] FINAL PERFORMING LAB Normal [facility] Comment on above: Order Comment: Speci men Type: TISSUE SPECIMENOrdering Facility: [facility] Address: [address] [place] [address] Result Comment: Diag nostic interpretation performed at [facility], [address] [place] [address] CLIA# [id number] Director: Abhishek Mosley M.D. Performed By: #### S ####[facility] LABCLIA [id number] [address] [place] GROSS DESCRIPTION A. Gallbladder Normal [facility] Comment on above: Order Comment: Speci men Type: TISSUE SPECIMENOrdering Facility: [facility] Address: [address] [place] [address] Result Comment: Rece ived in formalin labeled with the patient's name, medical record number, and gallbladder is an 8.3 x 3.6 x 2.4 cm gallbladder. The serosal surface is suggs-smith, smooth and glistening with the exception of the cauterized hepatic bed. Opening releases dark brown viscous bile. No calculi are identified in the gallbladder lumen, in the cystic duct, or in the specimen container. The gallbladder mucosa is brown and velvety with an average wall thickness of 0.2 cm. No polyps or mass lesions are identified. The cystic duct margin (en face) and lead customer service representative sections of the gallbladder are submitted in A1.Gross examination performed at [facility], [address] [place], [place] [address] August 09, 2024 3:43 PM Performed By: #### S ####[facility] LABCLIA [id number] [facility] [place] [address] [place] ALLIED HEALTHon 08-08-2024 ALLIED HEALTH Normal [facility] CASE MANAGEMon 08-08-[address] [facility] CBC panel Auto (Bld)on 08-08 Erythrocyte distribution width (RBC) [Ratio] 16.1 % High 11.5-15.0 [facility] Comment on above: Order Comment: Speci men Type: BLOOD SPECIMENOrdering Facility: [facility] Address: [address] [place] [address] Performed By: #### 5 8410-2 ####[facility] [facility]ORATORYCLIA [id number] [place] [address] [place] Hematocrit (Bld) [Volume fraction] 37.2 % Normal 36.0-46.0 [facility] Comment on above: Order Comment: Speci men Type: BLOOD SPECIMENOrdering Facility: [facility] Address: [address] [place] [address] Performed By: #### 5 8410-2 ####[facility]ORATORYCLIA [id number] [address] [place] Hemoglobin (Bld) [Mass/Vol] 12.1 g/dL Normal 11.5-15.5 [facility] Comment on above: Order Comment: Speci men Type: BLOOD SPECIMENOrdering Facility: [facility] Address: [address] [place] [address] Performed By: #### 5 8410-2 ####[facility] LABORATORYCLIA [id number] [address] MCH (RBC) [Entitic mass] 26.1 pg Normal 26.0-34.0 [facility] Comment on above: Order Comment: Speci men Type: BLOOD SPECIMENOrdering Facility: [facility] Address: [address] [place] [address] Performed By: #### 5 8410-2 ####[facility] LABORATORYCLIA [id number] [address] MCHC (RBC) [Mass/Vol] 32.5 g/dL Normal 30.5-36.0 [facility] Comment on above: Order Comment: Speci men Type: BLOOD SPECIMENOrdering Facility: [facility] Address: [address] [place] [address] Performed By: #### 5 8410-2 ####[facility] [facility]ORATORYCLIA [id number] [address] MCV (RBC) [Entitic vol] 80.2 fL Normal 80.0-100.0 [facility] Comment on above: Order Comment: Speci men Type: BLOOD SPECIMENOrdering Facility: [facility] Address: [address] [place] [address] Performed By: #### 5 8410-2 ####[facility]ORATORYCLIA [id number] [address] Nucleated RBC (Bld) [#/Vol] 10*3/uL Normal <0.01 [facility] Comment on above: Order Comment: Speci men Type: BLOOD SPECIMENOrdering Facility: [facility] Address: [address] [place] [address] Performed By: #### 5 8410-2 ####[facility] LABORATORYCLIA [id number] [address] [place] Platelet mean volume (Bld) [Entitic vol] 9.6 fL Normal 9.0-12.7 [facility] Comment on above: Order Comment: Speci men Type: BLOOD SPECIMENOrdering Facility: [facility] Address: [address] [place] [address] Performed By: #### 5 8410-2 ####[facility] LABORATORYCLIA [id number] [address] [place] Platelets (Bld) [#/Vol] 199 10*3/uL Normal 150-400 [facility] Comment on above: Order Comment: Speci men Type: BLOOD SPECIMENOrdering Facility: [facility] Address: [address] [place] [address] Performed By: #### 5 8410-2 ####[facility] LABORATORYCLIA [id number] [place] [address] [place] RBC (Bld) [#/Vol] 4.64 10*6/uL Normal 3.90-5.20 [facility] Comment on above: Order Comment: Speci men Type: BLOOD SPECIMENOrdering Facility: [facility] Address: [address] [place] [address] Performed By: #### 5 8410-2 ####[facility] LABORATORYCLIA [id number] [address] [place] WBC (Bld) [#/Vol] 5.26 10*3/uL Normal 3.70-11.00 [facility] Comment on above: Order Comment: Speci men Type: BLOOD SPECIMENOrdering Facility: [facility] Address: [address] [place] [address] Performed By: #### 5 8410-2 ####[facility] LABORATORYCLIA [id number] [address] [place] CONSULT PROGon 08-08-2024 CONSULT PROG Normal [facility] CONSULT PROG Normal [facility] Comprehensive metabolic 2000 panelon 08-08-2024 ALP [Catalytic activity/Vol] 50 U/L Normal 34-123 [facility] Comment on above: Order Comment: Speci men Type: BLOOD SPECIMENOrdering Facility: [facility] Address: [address] [place] [address] Performed By: #### 3 040-3, 22138-5, 55866-8 ####[facility] LABORATORYCLIA [id number] [place] [address] [place] ALT [Catalytic activity/Vol] 9 U/L Normal 7-38 [facility] Comment on above: Order Comment: Speci men Type: BLOOD SPECIMENOrdering Facility: [facility] Address: [address] [place] [address] Performed By: #### 3 040-3, 57396-2, 61809-3 ####[facility] LABORATORYCLIA [id number] [place] [address] [place] Anion gap [Moles/Vol] 22 mmol/L High 8-15 [facility] Comment on above: Order Comment: Speci men Type: BLOOD SPECIMENOrdering Facility: [facility] Address: [address] [place] [address] Performed By: #### 3 040-3, 22847-3, ####[facility] LABORATORYCLIA [id number] [place] [address] [place] AST [Catalytic activity/Vol] 17 U/L Normal 13-35 [facility] Comment on above: Order Comment: Speci men Type: BLOOD SPECIMENOrdering Facility: [facility] Address: [address] [place] [address] Performed By: #### 3 040-3, 24095-4, ####[facility] LABORATORYCLIA [id number] [place] [id number] [place] Bilirubin [Mass/Vol] 0.3 mg/dL Normal 0.2-1.3 [facility] Comment on above: Order Comment: Speci men Type: BLOOD SPECIMENOrdering Facility: [facility] Address: [address] [place] [address] Performed By: #### 3 040-3, 76826-0, 26387-5 ####[facility] LABORATORYCLIA [id number] [place] [address] [place] Chloride [Moles/Vol] 99 mmol/L Normal 98-107 [facility] Comment on above: Order Comment: Speci men Type: BLOOD SPECIMENOrdering Facility: [facility] Address: [address] [place] [address] Performed By: #### 3 040-3, 66796-3, ####[facility] LABORATORYCLIA [id number] [place] [address] [place] CO2 [Moles/Vol] 16 mmol/L Low 22-30 [facility] Comment on above: Order Comment: Speci men Type: BLOOD SPECIMENOrdering Facility: [facility] Address: [address] [place] [address] Performed By: #### 3 040-3, 22114-4, 04639-9 ####[facility]ORATORYCLIA [id number] [place] [id number] [place] Glucose [Mass/Vol] 118 mg/dL High 74-99 [facility] Comment on above: Order Comment: Speci men Type: BLOOD SPECIMENOrdering Facility: [facility] Address: [address] [place] [address] Result Comment: The [place] Diabetes Association (ADA) provides guidance for cutoff values for fasting glucose and random glucose. The ADA defines fasting as no caloric intake for at least 8 hours. Fasting plasma glucose results between 100 to 125 mg/dL indicate increased risk for diabetes (prediabetes).Fasting plasma glucose results greater than or equal to 126 mg/dL meet the criteria for diagnosis of diabetes. In the absence of unequivocal hyperglycemia, results should be confirmed by repeat testing. In a patient with classic symptoms of hyperglycemia or hyperglycemic crisis, random plasma glucose results greater than or equal to 200 mg/dL meet the criteria for diagnosis of diabetes.Reference: Standards of Medical Care in Diabetes 2016, [place] [employer] Association. Diabetes Care. 2016.39(Suppl 1). Performed By: #### 3 040-3, 43810-8, 65568-7 ####[facility]ORATORYCLIA [id number] [place] [id number] [place] Protein [Mass/Vol] 6.9 g/dL Normal 6.3-8.0 [facility] Comment on above: Order Comment: Speci men Type: BLOOD SPECIMENOrdering Facility: [facility] Address: [address] [place] [address] Performed By: #### 3 040-3, 26261-7, 39505-7 ####[facility] [facility]ORATORYCLIA [id number] [place] [address] [place] Sodium [Moles/Vol] 137 mmol/L Normal 136-144 [facility] Comment on above: Order Comment: Alex mcgovern Type: BLOOD SPECIMENOrdering Facility: [facility] Address: [address] [place] [address] Performed By: #### 3 040-3, 16042-3, 88578-1 ####[place] [facility]ORATORYCLIA [id number] [place] [id number] [place] Lipase SerPl-cCncon 08-08-20 24 Lipase [Catalytic activity/Vol] 272 U/L High 16-61 [facility] Comment on above: Order Comment: Alex mcgovern Type: BLOOD SPECIMENOrdering Facility: [facility] Address: [address] [place] [address] Performed By: #### 3 040-3, 38036-8, 98994-2 ####[place] [facility]ORATORYCLIA [id number] [place] [address] [place] MRI 3D POST PROCESSINGon MRI 3D POST PROCESSING Normal [facility] MRI PANC/MODESTA WO/W IVCONon MRI PANC/MODESTA WO/W IVCON Normal [facility] PT panel Coag (PPP)on 2023 INR Coag (PPP) [Relative time] 1.5 {INR} High 0.9-1.3 [facility] Comment on above: Order Comment: Speci shaniqua Type: BLOOD SPECIMENOrdering Facility: [facility] Address: [address] [place] [address] Result Comment: Tana min K Antagonist (VKA) Therapeutic Range: INR 2 to 3 (Target INR of 2.5)Note: For patients treated with VKA drugs, such as warfarin, the [place] [employer] 2012 Guideline recommends a therapeutic INR range of 2 to 3 (target INR of 2.5). This recommendation includes high-risk patients with antiphospholipid syndrome with previous arterial or venous thromboembolism, current-generation mechanical or bioprosthetic aortic heart valve replacement.Note: Patients with mechanical aortic valve replacement and additional risk factors for thromboembolic events (atrial fibrillation, previous thromboembolism, LV dysfunction, hypercoagulable conditions) or an older generation mechanical AVR (i.e., ball in-Cage) or any mechanical MVR should have a INR therapeutic range of 2.5 to 3.5 (target INR of 3).Sarah GH, et al. Chest 2012, 141:7S-47SNishimura RA, et al. [facility] 2017, 70: 252-289 Performed By: #### 3 4528-0 ####[place] [facility]ORATORYCLIA [id number] [place] [address] [place] PT Coag (PPP) [Time] 15.3 s High 9.7-13.0 [facility] Comment on above: Order Comment: Alex mcgovern Type: BLOOD SPECIMENOrdering Facility: [facility] Address: [address] [place] [address] Performed By: #### 3 4528-0 ####[place] [facility]ORATORYCLIA [id number] [address] [place] Renal Func 2000 Pnl SerPlon 08-08-2024 Albumin [Mass/Vol] 3.7 g/dL Low 3.9-4.9 [facility] Comment on above: Order Comment: Alex mcgovern Type: BLOOD SPECIMENOrdering Facility: [facility] Address: [address] [place] [address] Performed By: #### 3 040-3, 81122-1, 02986-8 ####[facility] [facility]ORATORYCLIA [id number] [place] [address] [place] Calcium [Mass/Vol] 8.9 mg/dL Normal 8.5-10.2 [facility] Comment on above: Order Comment: Alex mcgovern Type: BLOOD SPECIMENOrdering Facility: [facility] Address: [address] [place] [address] Performed By: #### 3 040-3, 89580-3, 39341-0 ####[facility] [facility]ORATORYCLIA [id number] [address] Creatinine [Mass/Vol] 0.59 mg/dL Normal 0.58-0.96 [facility] Comment on above: Order Comment: Alex mcgovern Type: BLOOD SPECIMENOrdering Facility: [facility] Address: [address] [place] [address] Performed By: #### 3 040-3, 69214-1, ####[facility]ATORYCLIA [id number] [place] [address] [place] Creatinine and Glomerular filtration rate.predicted panel (S/P/Bld) 129 mL/min/1.73m??? Normal >=60 [facility] Comment on above: Order Comment: Alex mcgovern Type: BLOOD SPECIMENOrdering Facility: [facility] Address: [address] [place] [address] Result Comment: Cinthya mated Glomerular Filtration Rate (eGFR) is calculated using the 2020 CKD-EPI creatinine equation. This equation utilizes serum creatinine, sex, and age as parameters. The creatinine assay has traceable calibration to isotope dilution-mass spectrometry. Refer to KDIGO guidelines for clinical interpretation. In patients with unstable renal function, e.g. those with acute kidney injury, the eGFR may not accurately reflect actual GFR. Performed By: #### 3 040-3, 50503-2, ####[facility]ATORYCLIA [id number] [place] [address] [place] Potassium [Moles/Vol] 3.2 mmol/L Low 3.7-5.1 [facility] Comment on above: Order Comment: Alex mcgovern Type: BLOOD SPECIMENOrdering Facility: [facility] Address: [address] [place] [address] Performed By: #### 3 040-3, 33860-6, ####[facility]ATORYCLIA [id number] [place] [id number] [place] Urea nitrogen [Mass/Vol] mg/dL Low 7-21 [facility] Comment on above: Order Comment: Alex mcgovern Type: BLOOD SPECIMENOrdering Facility: [facility] Address: [address] [place] [address] Performed By: #### 3 040-3, 68135-1, 89033-7 ####[facility]ORATORYCLIA [id number] [place] [address] [place] Renal function 2000 panelon 08-08-2024 Anion gap [Moles/Vol] 15 mmol/L Normal 8-15 [facility] Comment on above: Order Comment: [place] mcgovern Type: BLOOD SPECIMENOrdering Facility: [facility] Address: [address] [place] [address] Performed By: #### 3 040-3, 16937-5, 15370-9 ####[place] [facility]ORATORYCLIA [id number] [place] [id number] [place] Chloride [Moles/Vol] 100 mmol/L Normal 98-107 [facility] Comment on above: Order Comment: Alex men Type: BLOOD SPECIMENOrdering Facility: [facility] Address: [address] [place] [address] Performed By: #### 3 040-3, 05411-0, 26409-0 ####[facility] LABORATORYCLIA [id number] [place] [id number] [place] CO2 [Moles/Vol] 21 mmol/L Low 22-30 [facility] Comment on above: Order Comment: Sini men Type: BLOOD SPECIMENOrdering Facility: [facility] Address: [address] [place] [address] Performed By: #### 3 040-3, 96741-8, 43752-4 ####[facility] LABORATORYCLIA [id number] [place] [id number] [place] Glucose [Mass/Vol] 120 mg/dL High 74-99 [facility] Comment on above: Order Comment: Alex mcgovern Type: BLOOD SPECIMENOrdering Facility: [facility] Address: [address] [place] [address] Result Comment: The [place] Diabetes Association (ADA) provides guidance for cutoff values for fasting glucose and random glucose. The ADA defines fasting as no caloric intake for at least 8 hours. Fasting plasma glucose results between 100 to 125 mg/dL indicate increased risk for diabetes (prediabetes).Fasting plasma glucose results greater than or equal to 126 mg/dL meet the criteria for diagnosis of diabetes. In the absence of unequivocal hyperglycemia, results should be confirmed by repeat testing. In a patient with classic symptoms of hyperglycemia or hyperglycemic crisis, random plasma glucose results greater than or equal to 200 mg/dL meet the criteria for diagnosis of diabetes.Reference: Standards of Medical Care in Diabetes 2016, [place] [employer] Association. Diabetes Care. 2016.39(Suppl 1). Performed By: #### 3 040-3, 00636-3, ####[facility] LABORATORYCLIA [id number] [place] [address] [place] Phosphate [Mass/Vol] 3.5 mg/dL Normal 2.7-4.8 [facility] Comment on above: Order Comment: Speci men Type: BLOOD SPECIMENOrdering Facility: [facility] Address: [address] [place] [address] Performed By: #### 3 040-3, 45524-3, ####[facility] LABORATORYCLIA [id number] [address] [place] Sodium [Moles/Vol] 136 mmol/L Normal 136-144 [facility] Comment on above: Order Comment: Speci men Type: BLOOD SPECIMENOrdering Facility: [facility] Address: [address] [place] [address] Performed By: #### 3 040-3, 53115-5, ####[facility] LABORATORYCLIA [id number] [address] TYPE + SCREENon 08-08-2024 ABO AB Normal [facility] Comment on above: Order Comment: Speci men Type: BLOOD SPECIMENOrdering Facility: [facility] Address: [address] [place] [address] Performed By: #### T SCR ####[facility] BANKCLIA [id number] [place] [address] [place] Rh Nom (Bld) Positive Normal [facility] Comment on above: Order Comment: Speci men Type: BLOOD SPECIMENOrdering Facility: [facility] Address: [address] [place] [address] Performed By: #### T SCR ####[facility] BANKCLIA [id number] [address] STATES OF [facility] TYPE AND SCREEN EXPIRATION 08/11/2024 23:59 Normal [facility] Comment on above: Order Comment: Speci men Type: BLOOD SPECIMENOrdering Facility: [facility] Address: [address] [place] [address] Performed By: #### T SCR ####[facility] BANKCLIA [id number] [address] CBC panel Auto (Bld)on 08-07 Erythrocyte distribution width (RBC) [Ratio] 16.3 % High 11.5-15.0 [facility] Comment on above: Order Comment: Speci men Type: BLOOD SPECIMENOrdering Facility: [facility] Address: [address] [place] [address] Performed By: #### 5 8410-2 ####[facility] LABORATORYCLIA [id number] [address] Hematocrit (Bld) [Volume fraction] 36.2 % Normal 36.0-46.0 [facility] Comment on above: Order Comment: Speci men Type: BLOOD SPECIMENOrdering Facility: [facility] Address: [address] [place] [address] Performed By: #### 5 8410-2 ####[facility] LABORATORYCLIA [id number] [address] Hemoglobin (Bld) [Mass/Vol] 12.0 g/dL Normal 11.5-15.5 [facility] Comment on above: Order Comment: Speci men Type: BLOOD SPECIMENOrdering Facility: [facility] Address: [address] [place] [address] Performed By: #### 5 8410-2 ####[facility] LABORATORYCLIA [id number] [address] MCH (RBC) [Entitic mass] 26.3 pg Normal 26.0-34.0 [facility] Comment on above: Order Comment: Speci men Type: BLOOD SPECIMENOrdering Facility: [facility] Address: [address] [place] [address] Performed By: #### 5 8410-2 ####[facility] LABORATORYCLIA [id number] [address] STATES [facility] MCHC (RBC) [Mass/Vol] 33.1 g/dL Normal 30.5-36.0 [facility] Comment on above: Order Comment: Speci men Type: BLOOD SPECIMENOrdering Facility: [facility] Address: [address] [place] [address] Performed By: #### 5 8410-2 ####[facility] LABORATORYCLIA [id number] [place] [address] [place] MCV (RBC) [Entitic vol] 79.4 fL Low 80.0-100.0 [facility] Comment on above: Order Comment: Speci men Type: BLOOD SPECIMENOrdering Facility: [facility] Address: [address] [place] [address] Performed By: #### 5 8410-2 ####[facility] LABORATORYCLIA [id number] [address] [place] Nucleated RBC (Bld) [#/Vol] 0.02 10*3/uL High <0.01 [facility] Comment on above: Order Comment: Speci men Type: BLOOD SPECIMENOrdering Facility: [facility] Address: [address] [place] [address] Performed By: #### 5 8410-2 ####[facility]ORATORYCLIA [id number] [address] [place] Platelet mean volume (Bld) [Entitic vol] 10.2 fL Normal 9.0-12.7 [facility] Comment on above: Order Comment: Speci men Type: BLOOD SPECIMENOrdering Facility: [facility] Address: [address] [place] [address] Performed By: #### 5 8410-2 ####[facility] LABORATORYCLIA [id number] [place] [address] [place] Platelets (Bld) [#/Vol] 189 10*3/uL Normal 150-400 [facility] Comment on above: Order Comment: Speci men Type: BLOOD SPECIMENOrdering Facility: [facility] Address: [address] [place] [address] Performed By: #### 5 8410-2 ####[facility] [facility]ORATORYCLIA [id number] [address] [place] RBC (Bld) [#/Vol] 4.56 10*6/uL Normal 3.90-5.20 [facility] Comment on above: Order Comment: Speci men Type: BLOOD SPECIMENOrdering Facility: [facility] Address: [address] [place] [address] Performed By: #### 5 8410-2 ####[place] [facility]ORATORYCLIA [id number] [address] [place] WBC (Bld) [#/Vol] 6.62 10*3/uL Normal 3.70-11.00 [facility] Comment on above: Order Comment: Speci men Type: BLOOD SPECIMENOrdering Facility: [facility] Address: [address] [place] [address] Performed By: #### 5 8410-2 ####[facility] [facility]ORATORYCLIA [id number] [address] [place] CONSULT PROGon 08-07-2024 CONSULT PROG Normal [facility] CONSULT PROG Normal [facility] Lipase SerPl-cCncon 08-07-20 24 Lipase [Catalytic activity/Vol] 241 U/L High 16-61 [facility] Comment on above: Order Comment: Speci men Type: BLOOD SPECIMENOrdering Facility: [facility] Address: [address] [place] [address] Performed By: #### 2 4362-6, 3040-3 ####[facility] [facility]ORATORYCLIA [id number] [address] [place] Renal function 2000 panelon 08-07-2024 Albumin [Mass/Vol] 3.7 g/dL Low 3.9-4.9 [facility] Comment on above: Order Comment: Speci men Type: BLOOD SPECIMENOrdering Facility: [facility] Address: [address] [place] [address] Performed By: #### 2 4362-6, 3040-3 ####[facility] LABORATORYCLIA [id number] [address] [place] Anion gap [Moles/Vol] 17 mmol/L High 8-15 [facility] Comment on above: Order Comment: Speci men Type: BLOOD SPECIMENOrdering Facility: [facility] Address: [address] [place] [address] Performed By: #### 2 4362-6, 3040-3 ####[facility] LABORATORYCLIA [id number] [place] [address] [place] Calcium [Mass/Vol] 8.7 mg/dL Normal 8.5-10.2 [facility] Comment on above: Order Comment: Speci men Type: BLOOD SPECIMENOrdering Facility: [facility] Address: [address] [place] [address] Performed By: #### 2 4362-6, 3039-3 ####[facility] LABORATORYCLIA [id number] [place] [address] [place] Chloride [Moles/Vol] 102 mmol/L Normal 98-107 [facility] Comment on above: Order Comment: Speci men Type: BLOOD SPECIMENOrdering Facility: [facility] Address: [address] [place] [address] Performed By: #### 2 4362-6, 3039-3 ####[facility] LABORATORYCLIA [id number] [place] [address] [place] CO2 [Moles/Vol] 17 mmol/L Low 22-30 [facility] Comment on above: Order Comment: Speci men Type: BLOOD SPECIMENOrdering Facility: [facility] Address: [address] [place] [address] [place] [address] Performed By: #### 2 4362-6, 3040-3 ####[facility] LABORATORYCLIA [id number] [place] [address] [place] Creatinine [Mass/Vol] 0.58 mg/dL Normal 0.58-0.96 [facility] Comment on above: Order Comment: Speci men Type: BLOOD SPECIMENOrdering Facility: [facility] Address: [address] [place] [address] Performed By: #### 2 4362-6, 3040-3 ####[facility] LABORATORYCLIA [id number] [place] [address] [place] Creatinine and Glomerular filtration rate.predicted panel (S/P/Bld) 130 mL/min/1.73m??? Normal >=60 [facility] Comment on above: Order Comment: Alex mcgovern Type: BLOOD SPECIMENOrdering Facility: [facility] Address: [address] [place] [address] Result Comment: Cinthya mated Glomerular Filtration Rate (eGFR) is calculated using the 2020 CKD-EPI creatinine equation. This equation utilizes serum creatinine, sex, and age as parameters. The creatinine assay has traceable calibration to isotope dilution-mass spectrometry. Refer to KDIGO guidelines for clinical interpretation. In patients with unstable renal function, e.g. those with acute kidney injury, the eGFR may not accurately reflect actual GFR. Performed By: #### 2 4362-6, 3040-3 ####[facility]ORATORYCLIA [id number] [place] [id number] [place] Glucose [Mass/Vol] 106 mg/dL High 74-99 [facility] Comment on above: Order Comment: Alex mcgovern Type: BLOOD SPECIMENOrdering Facility: [facility] Address: [address] [place] [address] Result Comment: The [place] Diabetes Association (ADA) provides guidance for cutoff values for fasting glucose and random glucose. The ADA defines fasting as no caloric intake for at least 8 hours. Fasting plasma glucose results between 100 to 125 mg/dL indicate increased risk for diabetes (prediabetes).Fasting plasma glucose results greater than or equal to 126 mg/dL meet the criteria for diagnosis of diabetes. In the absence of unequivocal hyperglycemia, results should be confirmed by repeat testing. In a patient with classic symptoms of hyperglycemia or hyperglycemic crisis, random plasma glucose results greater than or equal to 200 mg/dL meet the criteria for diagnosis of diabetes.Reference: Standards of Medical Care in Diabetes 2016, [place] [employer]. Diabetes Care. 2016.39(Suppl 1). Performed By: #### 2 4362-6, 3040-3 ####[facility] [facility] LABORATORYCLIA [id number] [place] [address] [place] Phosphate [Mass/Vol] 3.1 mg/dL Normal 2.7-4.8 [facility] Comment on above: Order Comment: Speci men Type: BLOOD SPECIMENOrdering Facility: [facility] Address: [address] [place] [address] Performed By: #### 2 4362-6, 3040-3 ####[facility] LABORATORYCLIA [id number] [place] [address] [place] Potassium [Moles/Vol] 3.4 mmol/L Low 3.7-5.1 [facility] Comment on above: Order Comment: Speci men Type: BLOOD SPECIMENOrdering Facility: [facility] Address: [address] [place] [address] Performed By: #### 2 4362-6, 3039-3 ####[facility] LABORATORYCLIA [id number] [address] [place] Sodium [Moles/Vol] 136 mmol/L Normal 136-144 [facility] Comment on above: Order Comment: Speci men Type: BLOOD SPECIMENOrdering Facility: [facility] Address: [address] [place] [address] Performed By: #### 2 4362-6, 0-3 ####[facility] LABORATORYCLIA [id number] [place] [address] [place] Urea nitrogen [Mass/Vol] 2 mg/dL Low 7-21 [facility] Comment on above: Order Comment: Speci men Type: BLOOD SPECIMENOrdering Facility: [facility] Address: [address] [place] [address] Performed By: #### 2 4362-6, 3040-3 ####[facility] LABORATORYCLIA [id number] [address] [place] CBC panel Auto (Bld)on 08-06 Erythrocyte distribution width (RBC) [Ratio] 15.9 % High 11.5-15.0 [facility] Comment on above: Order Comment: Speci men Type: BLOOD SPECIMENOrdering Facility: [facility] Address: [address] [place] [address] Performed By: #### 5 8410-2 ####[facility] LABORATORYCLIA [id number] [address] Hematocrit (Bld) [Volume fraction] 39.0 % Normal 36.0-46.0 [facility] Comment on above: Order Comment: Speci men Type: BLOOD SPECIMENOrdering Facility: [facility] Address: [address] [place] [address] Performed By: #### 5 8410-2 ####[facility] LABORATORYCLIA [id number] [place] [address] [place] Hemoglobin (Bld) [Mass/Vol] 12.5 g/dL Normal 11.5-15.5 [facility] Comment on above: Order Comment: Speci men Type: BLOOD SPECIMENOrdering Facility: [facility] Address: [address] [place] [address] Performed By: #### 5 8410-2 ####[facility] LABORATORYCLIA [id number] [address] [place] MCH (RBC) [Entitic mass] 26.0 pg Normal 26.0-34.0 [facility] Comment on above: Order Comment: Speci men Type: BLOOD SPECIMENOrdering Facility: [facility] Address: [address] [place] [address] Performed By: #### 5 8410-2 ####[facility] LABORATORYCLIA [id number] [address] [place] MCHC (RBC) [Mass/Vol] 32.1 g/dL Normal 30.5-36.0 [facility] Comment on above: Order Comment: Speci men Type: BLOOD SPECIMENOrdering Facility: [facility] Address: [address] [place] [address] Performed By: #### 5 8410-2 ####[facility] LABORATORYCLIA [id number] [address] [place] MCV (RBC) [Entitic vol] 81.1 fL Normal 80.0-100.0 [facility] Comment on above: Order Comment: Speci men Type: BLOOD SPECIMENOrdering Facility: [facility] Address: [address] [place] [address] Performed By: #### 5 8410-2 ####[facility] LABORATORYCLIA [id number] [place] [address] [place] Nucleated RBC (Bld) [#/Vol] 10*3/uL Normal <0.01 [facility] Comment on above: Order Comment: Speci men Type: BLOOD SPECIMENOrdering Facility: [facility] Address: [address] [place] [address] Performed By: #### 5 8410-2 ####[facility] LABORATORYCLIA [id number] [place] [address] [place] Platelet mean volume (Bld) [Entitic vol] 9.6 fL Normal 9.0-12.7 [facility] Comment on above: Order Comment: Speci men Type: BLOOD SPECIMENOrdering Facility: [facility] Address: [address] [place] [address] Performed By: #### 5 8410-2 ####[facility] LABORATORYCLIA [id number] [place] [address] [place] Platelets (Bld) [#/Vol] 225 10*3/uL Normal 150-400 [facility] Comment on above: Order Comment: Speci men Type: BLOOD SPECIMENOrdering Facility: [facility] Address: [address] [place] [address] Performed By: #### 5 8410-2 ####[facility] LABORATORYCLIA [id number] [place] [address] [place] RBC (Bld) [#/Vol] 4.81 10*6/uL Normal 3.90-5.20 [facility] Comment on above: Order Comment: Speci men Type: BLOOD SPECIMENOrdering Facility: [facility] Address: [address] [place] [address] Performed By: #### 5 8410-2 ####[facility] LABORATORYCLIA [id number] [place] [address] [place] WBC (Bld) [#/Vol] 5.84 10*3/uL Normal 3.70-11.00 [facility] Comment on above: Order Comment: Speci men Type: BLOOD SPECIMENOrdering Facility: [facility] Address: [address] [place], [place] [address] [id number] Performed By: #### 5 8410-2 ####[facility] LABORATORYCLIA [id number] [place] [address] [place] CONSULTon 08-06-2024 CONSULT Normal [facility] CONSULT PROGon 08-06-2024 CONSULT PROG Normal [facility] Comprehensive metabolic 2000 panelon 08-06-2024 Albumin [Mass/Vol] 4.2 g/dL Normal 3.9-4.9 [facility] Comment on above: Order Comment: Speci men Type: BLOOD SPECIMENOrdering Facility: [facility] Address: [address] [place] [address] [place] [address] Performed By: #### 2 777-1, 304-3, ####[facility] LABORATORYCLIA [id number] [place] [address] [place] ALP [Catalytic activity/Vol] 52 U/L Normal 34-123 [facility] Comment on above: Order Comment: Speci men Type: BLOOD SPECIMENOrdering Facility: [facility] Address: [facility] [place] [address] Performed By: #### 2 777-1, 3040-3, 60444-3 ####[facility] LABORATORYCLIA [id number] [place] [address] [place] ALT [Catalytic activity/Vol] 9 U/L Normal 7-38 [facility] Comment on above: Order Comment: Speci men Type: BLOOD SPECIMENOrdering Facility: [facility] Address: [facility] [place] [address] Performed By: #### 2 777-1, 3040-3, 27950-4 ####[facility] LABORATORYCLIA [id number] [place] [id number] [place] [facility] Anion gap [Moles/Vol] 13 mmol/L Normal 8-15 [facility] Comment on above: Order Comment: Speci men Type: BLOOD SPECIMENOrdering Facility: [facility] Address: [address] [place] [address] [place] [id number] Performed By: #### 2 777-1, 3040-3, 19751-9 ####[facility] LABORATORYCLIA [id number] [place] [address] [place] AST [Catalytic activity/Vol] 10 U/L Low 13-35 [facility] Comment on above: Order Comment: Speci men Type: BLOOD SPECIMENOrdering Facility: [facility] Address: [address] [place] [address] Performed By: #### 2 777-1, 3040-3, 65102-3 ####[facility] LABORATORYCLIA [id number] [place] [address] [place] Bilirubin [Mass/Vol] 0.3 mg/dL Normal 0.2-1.3 [facility] Comment on above: Order Comment: Speci men Type: BLOOD SPECIMENOrdering Facility: [facility] Address: [address] [place] [address] Performed By: #### 2 777-1, 3039-3, 93952-0 ####[facility] LABORATORYCLIA [id number] [place] [address] [place] Calcium [Mass/Vol] 9.3 mg/dL Normal 8.5-10.2 [facility] Comment on above: Order Comment: Speci men Type: BLOOD SPECIMENOrdering Facility: [facility] Address: [address] [place] [address] Performed By: #### 2 777-1, 0-3, ####[facility] LABORATORYCLIA [id number] [place] [address] [place] Chloride [Moles/Vol] 105 mmol/L Normal 98-107 [facility] Comment on above: Order Comment: Speci men Type: BLOOD SPECIMENOrdering Facility: [facility] Address: [address] [place] [address] Performed By: #### 2 777-1, 3040-3, 40899-3 ####[facility] LABORATORYCLIA [id number] [place] [address] [place] CO2 [Moles/Vol] 22 mmol/L Normal 22-30 [facility] Comment on above: Order Comment: Speci men Type: BLOOD SPECIMENOrdering Facility: [facility] Address: [address] [place] [address] [place] [address] Performed By: #### 2 777-1, 3040-3, 38184-0 ####[facility] LABORATORYCLIA [id number] [place] [address] [place] [facility] Creatinine [Mass/Vol] 0.78 mg/dL Normal 0.58-0.96 [facility] Comment on above: Order Comment: Alex mcgovern Type: BLOOD SPECIMENOrdering Facility: [facility] Address: [address] [place] [id number] Performed By: #### 2 777-1, 3040-3, 80359-6 ####[facility] LABORATORYCLIA [id number] [place] [id number] [facility] Creatinine and Glomerular filtration rate.predicted panel (S/P/Bld) 109 mL/min/1.73m??? Normal >=60 [facility] Comment on above: Order Comment: Alex mcgovern Type: BLOOD SPECIMENOrdering Facility: [facility] Address: [address] [place] [address] Result Comment: Cinthya mated Glomerular Filtration Rate (eGFR) is calculated using the 2020 CKD-EPI creatinine equation. This equation utilizes serum creatinine, sex, and age as parameters. The creatinine assay has traceable calibration to isotope dilution-mass spectrometry. Refer to KDIGO guidelines for clinical interpretation. In patients with unstable renal function, e.g. those with acute kidney injury, the eGFR may not accurately reflect actual GFR. Performed By: #### 2 777-1, 3040-3, 73469-2 ####[facility] LABORATORYCLIA [id number] [place] [id number] [place] Glucose [Mass/Vol] 86 mg/dL Normal 74-99 [facility] Comment on above: Order Comment: Alex mcgovern Type: BLOOD SPECIMENOrdering Facility: [facility] Address: [address] [place] [address] Result Comment: The [place] Diabetes [employer] (ADA) provides guidance for cutoff values for fasting glucose and random glucose. The ADA defines fasting as no caloric intake for at least 8 hours. Fasting plasma glucose results between 100 to 125 mg/dL indicate increased risk for diabetes (prediabetes).Fasting plasma glucose results greater than or equal to 126 mg/dL meet the criteria for diagnosis of diabetes. In the absence of unequivocal hyperglycemia, results should be confirmed by repeat testing. In a patient with classic symptoms of hyperglycemia or hyperglycemic crisis, random plasma glucose results greater than or equal to 200 mg/dL meet the criteria for diagnosis of diabetes.Reference: Standards of Medical Care in Diabetes 2016, [place] [employer]. Diabetes Care. 2016.39(Suppl 1). Performed By: #### 2 777-1, 0-3, 70722-1 ####[facility] LABORATORYCLIA [id number] [place] [address] [place] Potassium [Moles/Vol] 3.3 mmol/L Low 3.7-5.1 [facility] Comment on above: Order Comment: Alex mcgovern Type: BLOOD SPECIMENOrdering Facility: [facility] Address: [address] [place] [address] Performed By: #### 2 777-1, 3039-3, 29736-6 ####[facility] LABORATORYCLIA [id number] [place] [address] [place] Protein [Mass/Vol] 6.9 g/dL Normal 6.3-8.0 [facility] Comment on above: Order Comment: Alex mcgovern Type: BLOOD SPECIMENOrdering Facility: [facility] Address: [address] [place] [address] Performed By: #### 2 777-1, 3039-3, 86194-9 ####[facility] LABORATORYCLIA [id number] [place] [address] [place] Sodium [Moles/Vol] 140 mmol/L Normal 136-144 [facility] Comment on above: Order Comment: Sini shaniqua Type: BLOOD SPECIMENOrdering Facility: [facility] Address: [address] [place] [address] Performed By: #### 2 777-1, 3039-3, 03641-0 ####[facility] LABORATORYCLIA [id number] [place] [id number] [place] Urea nitrogen [Mass/Vol] 3 mg/dL Low 7-21 [facility] Comment on above: Order Comment: Speci men Type: BLOOD SPECIMENOrdering Facility: [facility] Address: [address] [facility] [facility] [place] [address] Performed By: #### 2 777-1, 3040-3, 88693-6 ####[place] LABORATORYCLIA [id number] [place] [address] [place] Lipase SerPl-cCncon 08-06-20 Lipase [Catalytic activity/Vol] 181 U/L High 16-61 [facility] Comment on above: Order Comment: Speci men Type: BLOOD SPECIMENOrdering Facility: [facility] Address: [address] [place] [address] [place] [address] Performed By: #### 2 777-1, 3040-3, 87642-5 ####[facility] LABORATORYCLIA [id number] [address] [place] NUTRITIONon 08-06-2024 NUTRITION Normal [facility] Phosphate SerPl-mCncon 08-06 Phosphate [Mass/Vol] 3.5 mg/dL Normal 2.7-4.8 [facility] Comment on above: Order Comment: Speci men Type: BLOOD SPECIMENOrdering Facility: [facility] Address: [address] [place] [address] Performed By: #### 2 777-1, 3040-3, 16417-5 ####[facility] LABORATORYCLIA [id number] [place] [address] [place] ALLIED HEALTHon 08-05-2024 ALLIED HEALTH Normal [facility] ALLIED [facility]ALTH [facility] CASE MANAGEMon 08-05-2024 CASE MANAGEM Normal [facility] CBC panel Auto (Bld)on 08-05 Erythrocyte distribution width (RBC) [Ratio] 15.9 % High 11.5-15.0 [facility] Comment on above: Order Comment: Speci men Type: BLOOD SPECIMENOrdering Facility: [facility] Address: [address] [place] [address] [place] [address] Performed By: #### 5 8410-2 ####[place] LABORATORYCLIA [id number] [address] [place] Hematocrit (Bld) [Volume fraction] 41.4 % Normal 36.0-46.0 [facility] Comment on above: Order Comment: Speci men Type: BLOOD SPECIMENOrdering Facility: [facility] Address: [address] [place] [address] Performed By: #### 5 8410-2 ####[facility] LABORATORYCLIA [id number] [address] Hemoglobin (Bld) [Mass/Vol] 13.3 g/dL Normal 11.5-15.5 [facility] Comment on above: Order Comment: Speci men Type: BLOOD SPECIMENOrdering Facility: [facility] Address: [address] [place] [address] Performed By: #### 5 8410-2 ####[facility] LABORATORYCLIA [id number] [address] MCH (RBC) [Entitic mass] 25.9 pg Low 26.0-34.0 [facility] Comment on above: Order Comment: Speci men Type: BLOOD SPECIMENOrdering Facility: [facility] Address: [address] [place] [address] Performed By: #### 5 8410-2 ####[facility] LABORATORYCLIA [id number] [address] MCHC (RBC) [Mass/Vol] 32.1 g/dL Normal 30.5-36.0 [facility] Comment on above: Order Comment: Speci men Type: BLOOD SPECIMENOrdering Facility: [facility] Address: [address] [place] [address] Performed By: #### 5 8410-2 ####[facility] LABORATORYCLIA [id number] [address] MCV (RBC) [Entitic vol] 80.7 fL Normal 80.0-100.0 [facility] Comment on above: Order Comment: Speci men Type: BLOOD SPECIMENOrdering Facility: [facility] Address: [address] [place] [address] Performed By: #### 5 8410-2 ####[facility] LABORATORYCLIA [id number] [place] [address] [place] Nucleated RBC (Bld) [#/Vol] 10*3/uL Normal <0.01 [facility] Comment on above: Order Comment: Speci men Type: BLOOD SPECIMENOrdering Facility: [facility] Address: [address] [place] [address] Performed By: #### 5 8410-2 ####[facility] LABORATORYCLIA [id number] [place] [address] [place] Platelet mean volume (Bld) [Entitic vol] 9.2 fL Normal 9.0-12.7 [facility] Comment on above: Order Comment: Speci men Type: BLOOD SPECIMENOrdering Facility: [facility] Address: [address] [place] [address] Performed By: #### 5 8410-2 ####[facility] LABORATORYCLIA [id number] [address] [place] Platelets (Bld) [#/Vol] 252 10*3/uL Normal 150-400 [facility] Comment on above: Order Comment: Speci men Type: BLOOD SPECIMENOrdering Facility: [facility] Address: [address] [place] [address] Performed By: #### 5 8410-2 ####[facility] LABORATORYCLIA [id number] [place] [address] [place] RBC (Bld) [#/Vol] 5.13 10*6/uL Normal 3.90-5.20 [facility] Comment on above: Order Comment: Speci men Type: BLOOD SPECIMENOrdering Facility: [facility] Address: [address] [place] [address] Performed By: #### 5 8410-2 ####[facility] LABORATORYCLIA [id number] [place] [address] [place] WBC (Bld) [#/Vol] 7.82 10*3/uL Normal 3.70-11.00 [facility] Comment on above: Order Comment: Speci men Type: BLOOD SPECIMENOrdering Facility: [facility] Address: [address] [place] [address] Performed By: #### 5 8410-2 ####[facility] LABORATORYCLIA [id number] [place] [address] [place] CONSULT PROGon 08-05-2024 CONSULT PROG Normal [facility] Comprehensive metabolic 2000 panelon 08-05-2024 Albumin [Mass/Vol] 4.4 g/dL Normal 3.9-4.9 [facility] Comment on above: Order Comment: Speci men Type: BLOOD SPECIMENOrdering Facility: [facility] Address: [address] [place] [address] Performed By: #### 2 4323-8, 2777-1, 3040-3 ####[place] LABORATORYCLIA [id number] [address] STATES [facility] ALP [Catalytic activity/Vol] 55 U/L Normal 34-123 [facility] Comment on above: Order Comment: Speci men Type: BLOOD SPECIMENOrdering Facility: [facility] Address: [address] [place] [address] Performed By: #### 2 4323-8, 2777-1, 3040-3 ####[place] LABORATORYCLIA [id number] [address] STATES OF [facility] ALT [Catalytic activity/Vol] 10 U/L Normal 7-38 [facility] Comment on above: Order Comment: Speci men Type: BLOOD SPECIMENOrdering Facility: [facility] Address: [address] [place] [address] Performed By: #### 2 4323-8, 2777-1, 3040-3 ####[facility] LABORATORYCLIA [id number] [place] [id number] [facility] Anion gap [Moles/Vol] 18 mmol/L High 8-15 [facility] Comment on above: Order Comment: Speci men Type: BLOOD SPECIMENOrdering Facility: [facility] Address: [address] [place] [address] Performed By: #### 2 4323-8, 2777-1, 3040-3 ####[facility] LABORATORYCLIA [id number] [place] [address] [place] AST [Catalytic activity/Vol] 12 U/L Low 13-35 [facility] Comment on above: Order Comment: Speci men Type: BLOOD SPECIMENOrdering Facility: [facility] Address: [address] [facility] [place] [address] Performed By: #### 2 4323-8, 2777-1, 0-3 ####[facility] LABORATORYCLIA [id number] [place] [address] [place] Bilirubin [Mass/Vol] 0.5 mg/dL Normal 0.2-1.3 [facility] Comment on above: Order Comment: Speci men Type: BLOOD SPECIMENOrdering Facility: [facility] Address: [address] [facility] [address] Performed By: #### 2 4323-8, 2776-1, 3039-3 ####[facility] LABORATORYCLIA [id number] [place] [address] [place] Calcium [Mass/Vol] 9.2 mg/dL Normal 8.5-10.2 [facility] Comment on above: Order Comment: Speci men Type: BLOOD SPECIMENOrdering Facility: [facility] Address: [address] [place] [address] Performed By: #### 2 4323-8, 2776-1, 0-3 ####[facility] LABORATORYCLIA [id number] [place] [address] [place] Chloride [Moles/Vol] 101 mmol/L Normal 98-107 [facility] Comment on above: Order Comment: Speci men Type: BLOOD SPECIMENOrdering Facility: [facility] Address: [address] [place] [address] Performed By: #### 2 4323-8, 2776-1, 0-3 ####[facility] LABORATORYCLIA [id number] [place] [id number] [place] CO2 [Moles/Vol] 18 mmol/L Low 22-30 [facility] Comment on above: Order Comment: Speci men Type: BLOOD SPECIMENOrdering Facility: [facility] Address: [address] [place] [id number] Performed By: #### 2 4323-8, 7-1, 0-3 ####[facility] LABORATORYCLIA [id number] [place] [address] [place] Creatinine [Mass/Vol] 0.72 mg/dL Normal 0.58-0.96 [facility] Comment on above: Order Comment: Alex mcgovern Type: BLOOD SPECIMENOrdering Facility: [facility] Address: [address] [place] [address] Performed By: #### 2 4323-8, 2777-1, 3040-3 ####[place] LABORATORYCLIA [id number] [place] [address] [facility] [place] Creatinine and Glomerular filtration rate.predicted panel (S/P/Bld) 120 mL/min/1.73m??? Normal >=60 [facility] Comment on above: Order Comment: Alex mcgovern Type: BLOOD SPECIMENOrdering Facility: [facility] Address: [address] [place] [address] Result Comment: Cinthya mated Glomerular Filtration Rate (eGFR) is calculated using the 2020 CKD-EPI creatinine equation. This equation utilizes serum creatinine, sex, and age as parameters. The creatinine assay has traceable calibration to isotope dilution-mass spectrometry. Refer to KDIGO guidelines for clinical interpretation. In patients with unstable renal function, e.g. those with acute kidney injury, the eGFR may not accurately reflect actual GFR. Performed By: #### 2 4323-8, 2777-1, 3040-3 ####[facility] LABORATORYCLIA [id number] [place] [address] [place] Glucose [Mass/Vol] 85 mg/dL Normal 74-99 [facility] Comment on above: Order Comment: Alex mcgovern Type: BLOOD SPECIMENOrdering Facility: [facility] Address: [address] [place] [address] Result Comment: The [place] [employer] (ADA) provides guidance for cutoff values for fasting glucose and random glucose. The ADA defines fasting as no caloric intake for at least 8 hours. Fasting plasma glucose results between 100 to 125 mg/dL indicate increased risk for diabetes (prediabetes).Fasting plasma glucose results greater than or equal to 126 mg/dL meet the criteria for diagnosis of diabetes. In the absence of unequivocal hyperglycemia, results should be confirmed by repeat testing. In a patient with classic symptoms of hyperglycemia or hyperglycemic crisis, random plasma glucose results greater than or equal to 200 mg/dL meet the criteria for diagnosis of diabetes.Reference: Standards of Medical Care in Diabetes 2016, [place] [employer]. Diabetes Care. 2016.39(Suppl 1). Performed By: #### 2 4323-8, 2777-1, 3040-3 ####[facility] LABORATORYCLIA [id number] [place] [address] [place] Potassium [Moles/Vol] 3.0 mmol/L Low 3.7-5.1 [facility] Comment on above: Order Comment: Speci men Type: BLOOD SPECIMENOrdering Facility: [facility] Address: [address] [place] [address] Performed By: #### 2 4323-8, 277-1, 0-3 ####[facility] LABORATORYCLIA [id number] [place] [address] [place] Protein [Mass/Vol] 7.9 g/dL Normal 6.3-8.0 [facility] Comment on above: Order Comment: Speci men Type: BLOOD SPECIMENOrdering Facility: [facility] Address: [address] [place] [address] Performed By: #### 2 4323-8, 2776-, 0-3 ####[facility] LABORATORYCLIA [id number] [place] [address] [place] Sodium [Moles/Vol] 137 mmol/L Normal 136-144 [facility] Comment on above: Order Comment: Speci men Type: BLOOD SPECIMENOrdering Facility: [facility] Address: [address] [place] [address] Performed By: #### 2 4323-8, 277-1, 0-3 ####[facility] LABORATORYCLIA [id number] [place] [address] [place] Urea nitrogen [Mass/Vol] 3 mg/dL Low 7-21 [facility] Comment on above: Order Comment: Sini men Type: BLOOD SPECIMENOrdering Facility: [facility] Address: [address] [place] [address] Performed By: #### 2 4323-8, 2777-1, 3040-3 ####[place] LABORATORYCLIA [id number] [place] [address] [place] Lipase SerPl-cCncon 08-05-20 24 Lipase [Catalytic activity/Vol] 288 U/L High 16-61 [facility] Comment on above: Order Comment: Speci men Type: BLOOD SPECIMENOrdering Facility: [facility] Address: [address] [place] [address] Performed By: #### 2 4323-8, 2777-1, 3040-3 ####[place] LABORATORYCLIA [id number] [place] [address] [place] NM HEPATOBILIARY W EF AND/OR RXon 08-05-2024 NM HEPATOBILIARY W EF AND/OR RX Normal [facility] Phosphate SerPl-mCncon 08-05 Phosphate [Mass/Vol] 2.7 mg/dL Normal 2.7-4.8 [facility] Comment on above: Order Comment: Speci men Type: BLOOD SPECIMENOrdering Facility: [facility] Address: [address] [place] [address] Performed By: #### 2 4323-8, 2777-1, 3040-3 ####[place] LABORATORYCLIA [id number] [place] [address] [place] US KIDNEY/BLADDERon 08-05-20 24 US KIDNEY/BLADDER Normal [facility] ALLIED HEALTHon 08-04-2024 ALLIED HEALTH Normal [facility] CBC panel Auto (Bld)on 08-04 Erythrocyte distribution width (RBC) [Ratio] 15.5 % High 11.5-15.0 [facility] Comment on above: Order Comment: Speci men Type: BLOOD SPECIMENOrdering Facility: [facility] Address: [address] [place] [address] Performed By: #### 5 8410-2 ####[place] LABORATORYCLIA [id number] [address] [place] Hematocrit (Bld) [Volume fraction] 40.5 % Normal 36.0-46.0 [facility] Comment on above: Order Comment: Speci men Type: BLOOD SPECIMENOrdering Facility: [facility] Address: [address] [place] [address] Performed By: #### 5 8410-2 ####[facility] LABORATORYCLIA [id number] [address] Hemoglobin (Bld) [Mass/Vol] 12.8 g/dL Normal 11.5-15.5 [facility] Comment on above: Order Comment: Speci men Type: BLOOD SPECIMENOrdering Facility: [facility] Address: [address] [place] [address] Performed By: #### 5 8410-2 ####[facility] LABORATORYCLIA [id number] [address] MCH (RBC) [Entitic mass] 25.8 pg Low 26.0-34.0 [facility] Comment on above: Order Comment: Speci men Type: BLOOD SPECIMENOrdering Facility: [facility] Address: [address] [place] [address] Performed By: #### 5 8410-2 ####[facility] LABORATORYCLIA [id number] [address] MCHC (RBC) [Mass/Vol] 31.6 g/dL Normal 30.5-36.0 [facility] Comment on above: Order Comment: Speci men Type: BLOOD SPECIMENOrdering Facility: [facility] Address: [address] [place] [address] Performed By: #### 5 8410-2 ####[facility] LABORATORYCLIA [id number] [address] MCV (RBC) [Entitic vol] 81.5 fL Normal 80.0-100.0 M [facility] Comment on above: Order Comment: Speci men Type: BLOOD SPECIMENOrdering Facility: [facility] Address: [address] [place] [address] Performed By: #### 5 8410-2 ####[facility] LABORATORYCLIA [id number] [address] Nucleated RBC (Bld) [#/Vol] 10*3/uL Normal <0.01 [facility] Comment on above: Order Comment: Speci men Type: BLOOD SPECIMENOrdering Facility: [facility] Address: [address] [place] [address] Performed By: #### 5 8410-2 ####[facility] LABORATORYCLIA [id number] [place] [address] [place] Platelet mean volume (Bld) [Entitic vol] 9.2 fL Normal 9.0-12.7 [facility] Comment on above: Order Comment: Speci men Type: BLOOD SPECIMENOrdering Facility: [facility] Address: [address] [place] [address] Performed By: #### 5 8410-2 ####[facility] LABORATORYCLIA [id number] [place] [address] [place] Platelets (Bld) [#/Vol] 242 10*3/uL Normal 150-400 [facility] Comment on above: Order Comment: Speci men Type: BLOOD SPECIMENOrdering Facility: [facility] Address: [address] [place] [address] Performed By: #### 5 8410-2 ####[facility] LABORATORYCLIA [id number] [place] [address] [place] RBC (Bld) [#/Vol] 4.97 10*6/uL Normal 3.90-5.20 [facility] Comment on above: Order Comment: Speci men Type: BLOOD SPECIMENOrdering Facility: [facility] Address: [address] [place] [address] Performed By: #### 5 8410-2 ####[facility] LABORATORYCLIA [id number] [place] [address] [place] WBC (Bld) [#/Vol] 7.82 10*3/uL Normal 3.70-11.00 [facility] Comment on above: Order Comment: Speci men Type: BLOOD SPECIMENOrdering Facility: [facility] Address: [address] [place] [address] Performed By: #### 5 8410-2 ####[facility] LABORATORYCLIA [id number] [address] [place] CONSULT PROGon 11-28-2024 CONSULT PROG Normal [facility] Comprehensive metabolic 2000 panelon 08-04-2024 Albumin [Mass/Vol] 4.2 g/dL Normal 3.9-4.9 [facility] Comment on above: Order Comment: Speci men Type: BLOOD SPECIMENOrdering Facility: [facility] Address: [address] [place] [address] Performed By: #### 2 777-1, 71526-0, 0-3 ####[facility] LABORATORYCLIA [id number] [place] [id number] [place] ALP [Catalytic activity/Vol] 55 U/L Normal 34-123 [facility] Comment on above: Order Comment: Speci men Type: BLOOD SPECIMENOrdering Facility: [facility] Address: [address] [place] [address] Performed By: #### 2 777-1, 67967-1, 0-3 ####[facility] LABORATORYCLIA [id number] [address] STATES [place] [facility] ALT [Catalytic activity/Vol] 10 U/L Normal 7-38 [facility] Comment on above: Order Comment: Speci men Type: BLOOD SPECIMENOrdering Facility: [facility] Address: [address] [place] [address] Performed By: #### 2 777-1, 46447-2, 0-3 ####[facility] LABORATORYCLIA [id number] [place] [id number] [facility] Anion gap [Moles/Vol] 18 mmol/L High 8-15 [facility] Comment on above: Order Comment: Speci men Type: BLOOD SPECIMENOrdering Facility: [facility] Address: [address] [place] [address] Performed By: #### 2 777-1, 81058-9, 3040-3 ####[facility] LABORATORYCLIA [id number] [place] [address] [place] AST [Catalytic activity/Vol] 11 U/L Low 13-35 [facility] Comment on above: Order Comment: Speci men Type: BLOOD SPECIMENOrdering Facility: [facility] Address: [address] [place], [place] [address] [address] Performed By: #### 2 777-1, 85985-4, 3039-3 ####[facility] LABORATORYCLIA [id number] [place] [address] [place] Bilirubin [Mass/Vol] 0.3 mg/dL Normal 0.2-1.3 [facility] Comment on above: Order Comment: Speci men Type: BLOOD SPECIMENOrdering Facility: [facility] Address: [facility] [place] [address] Performed By: #### 2 777-1, 63747-3, 3039-3 ####[facility] LABORATORYCLIA [id number] [place] [address] [place] Calcium [Mass/Vol] 9.0 mg/dL Normal 8.5-10.2 [facility] Comment on above: Order Comment: Speci men Type: BLOOD SPECIMENOrdering Facility: [facility] Address: [facility] [place] [address] Performed By: #### 2 777-1, , 3039-3 ####[facility] LABORATORYCLIA [id number] [place] [address] [place] Chloride [Moles/Vol] 101 mmol/L Normal 98-107 [facility] Comment on above: Order Comment: Speci men Type: BLOOD SPECIMENOrdering Facility: [facility] Address: [facility] [place] [address] Performed By: #### 2 777-1, , 3039-3 ####[facility] LABORATORYCLIA [id number] [place] [id number] [place] CO2 [Moles/Vol] 18 mmol/L Low 22-30 [facility] Comment on above: Order Comment: Speci men Type: BLOOD SPECIMENOrdering Facility: [facility] Address: [facility] [place] [address] Performed By: #### 2 777-1, 74524-8, 0-3 ####[facility] LABORATORYCLIA [id number] [place] [address] [place] Creatinine [Mass/Vol] 0.68 mg/dL Normal 0.58-0.96 [facility] Comment on above: Order Comment: Alex mcgovern Type: BLOOD SPECIMENOrdering Facility: [facility] Address: [address] [place] [address] Performed By: #### 2 777-1, 53223-7, 0-3 ####[facility] LABORATORYCLIA [id number] [address] [place] [facility] Creatinine and Glomerular filtration rate.predicted panel (S/P/Bld) 125 mL/min/1.73m??? Normal >=60 [facility] Comment on above: Order Comment: Alex mcgovern Type: BLOOD SPECIMENOrdering Facility: [facility] Address: [address] [place] [address] Result Comment: Cinthya mated Glomerular Filtration Rate (eGFR) is calculated using the 2020 CKD-EPI creatinine equation. This equation utilizes serum creatinine, sex, and age as parameters. The creatinine assay has traceable calibration to isotope dilution-mass spectrometry. Refer to KDIGO guidelines for clinical interpretation. In patients with unstable renal function, e.g. those with acute kidney injury, the eGFR may not accurately reflect actual GFR. Performed By: #### 2 777-1, 26594-8, 3 ####[facility]ORATORYCLIA [id number] [place] [address] [place] Glucose [Mass/Vol] 89 mg/dL Normal 74-99 [facility] Comment on above: Order Comment: Alex mcgovern Type: BLOOD SPECIMENOrdering Facility: [facility] Address: [address] [place] [address] Result Comment: The [place] Diabetes [employer] (ADA) provides guidance for cutoff values for fasting glucose and random glucose. The ADA defines fasting as no caloric intake for at least 8 hours. Fasting plasma glucose results between 100 to 125 mg/dL indicate increased risk for diabetes (prediabetes).Fasting plasma glucose results greater than or equal to 126 mg/dL meet the criteria for diagnosis of diabetes. In the absence of unequivocal hyperglycemia, results should be confirmed by repeat testing. In a patient with classic symptoms of hyperglycemia or hyperglycemic crisis, random plasma glucose results greater than or equal to 200 mg/dL meet the criteria for diagnosis of diabetes.Reference: Standards of Medical Care in Diabetes 2016, [place] [employer]. Diabetes Care. 2016.39(Suppl 1). Performed By: #### 2 777-1, 90074-1, 0-3 ####[facility] LABORATORYCLIA [id number] [place] [address] [place] Potassium [Moles/Vol] 3.5 mmol/L Low 3.7-5.1 [facility] Comment on above: Order Comment: Speci men Type: BLOOD SPECIMENOrdering Facility: [facility] Address: [address] [place] [address] Performed By: #### 2 777-1, 29018-6, 0-3 ####[facility] LABORATORYCLIA [id number] [place] [address] [place] Protein [Mass/Vol] 7.5 g/dL Normal 6.3-8.0 [facility] Comment on above: Order Comment: Speci men Type: BLOOD SPECIMENOrdering Facility: [facility] Address: [address] [place] [address] Performed By: #### 2 777-1, 13191-7, 0-3 ####[facility] LABORATORYCLIA [id number] [place] [address] [place] Sodium [Moles/Vol] 137 mmol/L Normal 136-144 [facility] Comment on above: Order Comment: Speci men Type: BLOOD SPECIMENOrdering Facility: [facility] Address: [address] [place] [address] Performed By: #### 2 777-1, 80112-8, 0-3 ####[facility] LABORATORYCLIA [id number] [place] [address] [place] Urea nitrogen [Mass/Vol] 3 mg/dL Low 7-21 [facility] Comment on above: Order Comment: Speci men Type: BLOOD SPECIMENOrdering Facility: [facility] Address: [address] [place] [id number] Performed By: #### 2 777-1, 78380-6, 0-3 ####[facility] LABORATORYCLIA [id number] [place] [address] [place] ECG COMPLETEon 08-04-2024 ECG COMPLETE Normal [facility] Lipase SerPl-cCncon 08-04-20 24 Lipase [Catalytic activity/Vol] 237 U/L High 16-61 [facility] Comment on above: Order Comment: Speci men Type: BLOOD SPECIMENOrdering Facility: [facility] Address: [address] [place] [address] Performed By: #### 2 777-1, 41908-2, 3040-3 ####[facility]ORATORYCLIA [id number] [place] [address] [place] Phosphate SerPl-mCncon 08-04 Phosphate [Mass/Vol] 3.1 mg/dL Normal 2.7-4.8 [facility] Comment on above: Order Comment: Speci men Type: BLOOD SPECIMENOrdering Facility: [facility] Address: [address] [place] [address] Performed By: #### 2 777-1, 10840-4, 3040-3 ####[facility]ORATORYCLIA [id number] [place] [address] [place] XR ABDOMEN 1V SUPINEon 08-04 XR ABDOMEN 1V SUPINE Normal [facility] CASE MANAGEMon 08-03-2024 CASE MANAGEM Normal [facility] CBC panel Auto (Bld)on 08-03 Erythrocyte distribution width (RBC) [Ratio] 16.1 % High 11.5-15.0 [facility] Comment on above: Order Comment: Speci men Type: BLOOD SPECIMENOrdering Facility: [facility] Address: [address] [place] [address] Performed By: #### 5 8410-2 ####[facility]ORATORYCLIA [id number] [address] [place] Hematocrit (Bld) [Volume fraction] 43.0 % Normal 36.0-46.0 [facility] Comment on above: Order Comment: Speci men Type: BLOOD SPECIMENOrdering Facility: [facility] Address: [address] [place] [address] Performed By: #### 5 8410-2 ####[facility] LABORATORYCLIA [id number] [address] OF [facility] Hemoglobin (Bld) [Mass/Vol] 14.1 g/dL Normal 11.5-15.5 [facility] Comment on above: Order Comment: Speci men Type: BLOOD SPECIMENOrdering Facility: [facility] Address: [address] [place] [address] Performed By: #### 5 8410-2 ####[facility] LABORATORYCLIA [id number] [address] MCH (RBC) [Entitic mass] 25.8 pg Low 26.0-34.0 [facility] Comment on above: Order Comment: Speci men Type: BLOOD SPECIMENOrdering Facility: [facility] Address: [address] [place] [address] Performed By: #### 5 8410-2 ####[facility] LABORATORYCLIA [id number] [address] MCHC (RBC) [Mass/Vol] 32.8 g/dL Normal 30.5-36.0 [facility] Comment on above: Order Comment: Speci men Type: BLOOD SPECIMENOrdering Facility: [facility] Address: [address] [place] [address] Performed By: #### 5 8410-2 ####[facility]ORATORYCLIA [id number] [address] MCV (RBC) [Entitic vol] 78.8 fL Low 80.0-100.0 M [facility] Comment on above: Order Comment: Speci men Type: BLOOD SPECIMENOrdering Facility: [facility] Address: [address] [place] [address] Performed By: #### 5 8410-2 ####[facility]ORATORYCLIA [id number] [address] Nucleated RBC (Bld) [#/Vol] 10*3/uL Normal <0.01 [facility] Comment on above: Order Comment: Speci men Type: BLOOD SPECIMENOrdering Facility: [facility] Address: [address] [place] [address] Performed By: #### 5 8410-2 ####[facility] [facility]ORATORYCLIA [id number] [address] [place] Platelet mean volume (Bld) [Entitic vol] 9.7 fL Normal 9.0-12.7 [facility] Comment on above: Order Comment: Speci men Type: BLOOD SPECIMENOrdering Facility: [facility] Address: [address] [place] [address] Performed By: #### 5 8410-2 ####[facility] [facility]ORATORYCLIA [id number] [place] [address] [facility] [place] Platelets (Bld) [#/Vol] 193 10*3/uL Normal 150-400 [facility] Comment on above: Order Comment: Speci men Type: BLOOD SPECIMENOrdering Facility: [facility] Address: [address] [place] [address] Result Comment: No c lot detected. Performed By: #### 5 8410-2 ####[facility] [place] [facility]ORATORYCLIA [id number] [address] [place] RBC (Bld) [#/Vol] 5.46 10*6/uL High 3.90-5.20 [facility] Comment on above: Order Comment: Speci men Type: BLOOD SPECIMENOrdering Facility: [facility] Address: [address] [place] [address] Performed By: #### 5 8410-2 ####[facility] [place] [facility]ORATORYCLIA [id number] [address] [place] WBC (Bld) [#/Vol] 11.61 10*3/uL High 3.70-11.00 [facility] Comment on above: Order Comment: Speci men Type: BLOOD SPECIMENOrdering Facility: [facility] Address: [address] [place] [address] Performed By: #### 5 8410-2 ####[facility] [facility]ORATORYCLIA [id number] [address] [place] CONSULT PROGon 08-03-2024 CONSULT PROG Normal [facility] IGG SUBCLASS 1,2,3,4on 08-03 IgG subclass 1 (S) [Mass/Vol] 573.3 mg/dL Normal 382.4-928. 6 [facility] Comment on above: Order Comment: Speci men Type: BLOOD SPECIMENOrdering Facility: [facility] Address: [address] [place] [address] Performed By: #### I G1234 ####[facility] LABCLIA [id number] [place] [address] [place] IgG subclass 2 (S) [Mass/Vol] 574.0 mg/dL Normal 241.8-700. 3 [facility] Comment on above: Order Comment: Speci men Type: BLOOD SPECIMENOrdering Facility: [facility] Address: [address] [place] [address] Performed By: #### I G1234 ####[facility] LABCLIA [id number] [place] [address] [place] IgG subclass 3 (S) [Mass/Vol] 23.1 mg/dL Normal 21.8-176.1 [facility] Comment on above: Order Comment: Speci men Type: BLOOD SPECIMENOrdering Facility: [facility] Address: [address] [place] [address] Performed By: #### I G1234 ####[facility] LABCLIA [id number] [place] [address] [place] IgG subclass 4 (S) [Mass/Vol] 22.6 mg/dL Normal 3.9-86.4 [facility] Comment on above: Order Comment: Speci men Type: BLOOD SPECIMENOrdering Facility: [facility] Address: [address] [place] [address] Performed By: #### I G1234 ####[facility] LABCLIA [id number] [place] [id number] [place] IgG SerPl-mCncon 08-03-2024 IgG [Mass/Vol] 1143 mg/dL Normal 700-1600 [facility] Comment on above: Order Comment: Speci men Type: BLOOD SPECIMENOrdering Facility: [facility] Address: [address] [place] [address] Performed By: #### 2 465-3 ####[facility] LABCLIA [id number] [address] [id number] [place] Lipase SerPl-cCncon 08-03-20 24 Lipase [Catalytic activity/Vol] 252 U/L High 16-61 [facility] Comment on above: Order Comment: Speci men Type: BLOOD SPECIMENOrdering Facility: [facility] Address: [address] [place] [address] Performed By: #### 3 040-3 ####[facility]ORATORYCLIA [id number] [place] [address] [place] Renal function 2000 panelon 08-03-2024 Albumin [Mass/Vol] 4.4 g/dL Normal 3.9-4.9 [facility] Comment on above: Order Comment: Speci men Type: BLOOD SPECIMENOrdering Facility: [facility] Address: [address] [place] [address] Performed By: #### 2 4362-6 ####[facility]ORATORYCLIA [id number] [place] [address] [place] Anion gap [Moles/Vol] 26 mmol/L High 8-15 [facility] Comment on above: Order Comment: Speci men Type: BLOOD SPECIMENOrdering Facility: [facility] Address: [address] [place] [address] Performed By: #### 2 4362-6 ####[facility]ORATORYCLIA [id number] [place] [id number] [place] Calcium [Mass/Vol] 9.8 mg/dL Normal 8.5-10.2 [facility] Comment on above: Order Comment: Speci men Type: BLOOD SPECIMENOrdering Facility: [facility] Address: [address] [place] [address] Performed By: #### 2 4362-6 ####[facility]ORATORYCLIA [id number] [place] [address] [place] Chloride [Moles/Vol] 98 mmol/L Normal 98-107 [facility] Comment on above: Order Comment: Speci men Type: BLOOD SPECIMENOrdering Facility: [facility] Address: [address] [place] [address] Performed By: #### 2 4362-6 ####[facility]ORATORYCLIA [id number] [place] [address] [place] CO2 [Moles/Vol] 15 mmol/L Low 22-30 [facility] Comment on above: Order Comment: Speci men Type: BLOOD SPECIMENOrdering Facility: [facility] Address: [address] [place] [address] Performed By: #### 2 4362-6 ####[facility]ORATORYCLIA [id number] [place] [address] [place] Creatinine [Mass/Vol] 0.65 mg/dL Normal 0.58-0.96 [facility] Comment on above: Order Comment: Speci men Type: BLOOD SPECIMENOrdering Facility: [facility] Address: [address] [place] [address] Performed By: #### 2 4362-6 ####[facility] LABORATORYCLIA [id number] [address] STATES OF [facility] Creatinine and Glomerular filtration rate.predicted panel (S/P/Bld) 126 mL/min/1.73m??? Normal >=60 [facility] Comment on above: Order Comment: Alex shaniqua Type: BLOOD SPECIMENOrdering Facility: [facility] Address: [address] [place] [address] Result Comment: Cinthya mated Glomerular Filtration Rate (eGFR) is calculated using the 2020 CKD-EPI creatinine equation. This equation utilizes serum creatinine, sex, and age as parameters. The creatinine assay has traceable calibration to isotope dilution-mass spectrometry. Refer to KDIGO guidelines for clinical interpretation. In patients with unstable renal function, e.g. those with acute kidney injury, the eGFR may not accurately reflect actual GFR. Performed By: #### 2 4362-6 ####[facility]ORATORYCLIA [id number] [address] [place] Glucose [Mass/Vol] 84 mg/dL Normal 74-99 [facility] Comment on above: Order Comment: Alex shaniqua Type: BLOOD SPECIMENOrdering Facility: [facility] Address: [address] [place] [id number] Result Comment: The [place] Diabetes [employer] (ADA) provides guidance for cutoff values for fasting glucose and random glucose. The ADA defines fasting as no caloric intake for at least 8 hours. Fasting plasma glucose results between 100 to 125 mg/dL indicate increased risk for diabetes (prediabetes).Fasting plasma glucose results greater than or equal to 126 mg/dL meet the criteria for diagnosis of diabetes. In the absence of unequivocal hyperglycemia, results should be confirmed by repeat testing. In a patient with classic symptoms of hyperglycemia or hyperglycemic crisis, random plasma glucose results greater than or equal to 200 mg/dL meet the criteria for diagnosis of diabetes.Reference: Standards of Medical Care in Diabetes 2016, [place] [employer]. Diabetes Care. 2016.39(Suppl 1). Performed By: #### 2 4362-6 ####[place] [facility]ORATORYCLIA [id number] [place] [address] [place] Phosphate [Mass/Vol] 3.7 mg/dL Normal 2.7-4.8 [facility] Comment on above: Order Comment: Alex shaniqua Type: BLOOD SPECIMENOrdering Facility: [facility] Address: [address] [place] [address] Performed By: #### 2 4362-6 ####[facility] [facility]ORATORYCLIA [id number] [place] [address] [place] Potassium [Moles/Vol] 4.1 mmol/L Normal 3.7-5.1 [facility] Comment on above: Order Comment: Sini men Type: BLOOD SPECIMENOrdering Facility: [facility] Address: [address] [place] [address] Performed By: #### 2 4362-6 ####[place] [facility]ORATORYCLIA [id number] [place] [address] [place] Sodium [Moles/Vol] 139 mmol/L Normal 136-144 [facility] Comment on above: Order Comment: Alex men Type: BLOOD SPECIMENOrdering Facility: [facility] Address: [address] [place] [id number] Performed By: #### 2 4362-6 ####[facility]ATORYCLIA [id number] [address] [place] Urea nitrogen [Mass/Vol] 3 mg/dL Low 7-21 [facility] Comment on above: Order Comment: Speci men Type: BLOOD SPECIMENOrdering Facility: [facility] Address: [address] [place] [address] Performed By: #### 2 4362-6 ####[facility]ORATORYCLIA [id number] [address] [place] CBC panel Auto (Bld)on 08-02 Erythrocyte distribution width (RBC) [Ratio] 15.9 % High 11.5-15.0 [facility] Comment on above: Order Comment: Speci men Type: BLOOD SPECIMENOrdering Facility: [facility] Address: [address] [place] [address] Performed By: #### 5 8410-2 ####[facility]ATORYCLIA [id number] [address] Hematocrit (Bld) [Volume fraction] 40.0 % Normal 36.0-46.0 [facility] Comment on above: Order Comment: Speci men Type: BLOOD SPECIMENOrdering Facility: [facility] Address: [address] [place] [address] Performed By: #### 5 8410-2 ####[facility]ORATORYCLIA [id number] [address] [place] Hemoglobin (Bld) [Mass/Vol] 12.8 g/dL Normal 11.5-15.5 [facility] Comment on above: Order Comment: Speci men Type: BLOOD SPECIMENOrdering Facility: [facility] Address: [address] [place] [address] Performed By: #### 5 8410-2 ####[facility]ORATORYCLIA [id number] [address] MCH (RBC) [Entitic mass] 25.9 pg Low 26.0-34.0 [facility] Comment on above: Order Comment: Speci men Type: BLOOD SPECIMENOrdering Facility: [facility] Address: [address] [place] [address] Performed By: #### 5 8410-2 ####[facility]ATORYCLIA [id number] [address] [place] MCHC (RBC) [Mass/Vol] 32.0 g/dL Normal 30.5-36.0 [facility] Comment on above: Order Comment: Speci men Type: BLOOD SPECIMENOrdering Facility: [facility] Address: [address] [place] [address] Performed By: #### 5 8410-2 ####[facility]ORATORYCLIA [id number] [place] [address] [place] MCV (RBC) [Entitic vol] 81.0 fL Normal 80.0-100.0 M [facility] Comment on above: Order Comment: Speci men Type: BLOOD SPECIMENOrdering Facility: [facility] Address: [address] [place] [address] Performed By: #### 5 8410-2 ####[facility]ORATORYCLIA [id number] [address] [place] Nucleated RBC (Bld) [#/Vol] 10*3/uL Normal <0.01 [facility] Comment on above: Order Comment: Speci men Type: BLOOD SPECIMENOrdering Facility: [facility] Address: [address] [place] [address] Performed By: #### 5 8410-2 ####[facility]ORATORYCLIA [id number] [place] [address] [place] Platelet mean volume (Bld) [Entitic vol] 9.5 fL Normal 9.0-12.7 [facility] Comment on above: Order Comment: Speci men Type: BLOOD SPECIMENOrdering Facility: [facility] Address: [address] [place] [address] Performed By: #### 5 8410-2 ####[facility]ATORYCLIA [id number] [place] [address] [place] Platelets (Bld) [#/Vol] 216 10*3/uL Normal 150-400 [facility] Comment on above: Order Comment: Speci men Type: BLOOD SPECIMENOrdering Facility: [facility] Address: [address] [place] [id number] Performed By: #### 5 8410-2 ####[facility]ORATORYCLIA [id number] [place] [address] [place] [facility] RBC (Bld) [#/Vol] 4.94 10*6/uL Normal 3.90-5.20 [facility] Comment on above: Order Comment: Speci men Type: BLOOD SPECIMENOrdering Facility: [facility] Address: [address] [place] [address] Performed By: #### 5 8410-2 ####[place] [facility]ORATORYCLIA [id number] [address] [place] WBC (Bld) [#/Vol] 10.02 10*3/uL Normal 3.70-11.00 [facility] Comment on above: Order Comment: Speci men Type: BLOOD SPECIMENOrdering Facility: [facility] Address: [address] [place] [address] Performed By: #### 5 8410-2 ####[place] [facility]ORATORYCLIA [id number] [address] OF [facility] CONSULT PROGon 08-02-2024 CONSULT PROG Normal [facility] Lipase SerPl-cCncon 08-02-20 Lipase [Catalytic activity/Vol] 375 U/L High 16-61 [facility] Comment on above: Order Comment: Speci men Type: BLOOD SPECIMENOrdering Facility: [facility] Address: [facility] [place] [id number] Performed By: #### 2 571-8, 25184-7, 3040-3 ####[place] [facility]ORATORYCLIA [id number] [place] [id number] [facility] [place] Renal function 2000 panelon 08-02-2024 Albumin [Mass/Vol] 3.9 g/dL Normal 3.9-4.9 [facility] Comment on above: Order Comment: Speci men Type: BLOOD SPECIMENOrdering Facility: [facility] Address: [address] [place] [address] Performed By: #### 2 571-8, 00565-8, 0-3 ####[facility]ATORYCLIA [id number] [place] [address] [place] Anion gap [Moles/Vol] 21 mmol/L High 8-15 [facility] Comment on above: Order Comment: Speci men Type: BLOOD SPECIMENOrdering Facility: [facility] Address: [address] [place] [address] Performed By: #### 2 571-8, 58462-2, 0-3 ####[facility]ATORYCLIA [id number] [place] [address] [place] Calcium [Mass/Vol] 9.0 mg/dL Normal 8.5-10.2 [facility] Comment on above: Order Comment: Speci men Type: BLOOD SPECIMENOrdering Facility: [facility] Address: [address] [place] [address] Performed By: #### 2 571-8, 56103-3, 0-3 ####[facility]ATORYCLIA [id number] [place] [address] [place] Chloride [Moles/Vol] 102 mmol/L Normal 98-107 [facility] Comment on above: Order Comment: Speci men Type: BLOOD SPECIMENOrdering Facility: [facility] Address: [address] [place] [address] Performed By: #### 2 571-8, 24721-6, 0-3 ####[facility]ATORYCLIA [id number] [place] [address] [place] CO2 [Moles/Vol] 15 mmol/L Low 22-30 [facility] Comment on above: Order Comment: Speci men Type: BLOOD SPECIMENOrdering Facility: [facility] Address: [address] [place] [address] Performed By: #### 2 571-8, 20943-4, 0-3 ####[facility]ATORYCLIA [id number] [place] [address] [place] Creatinine [Mass/Vol] 0.62 mg/dL Normal 0.58-0.96 [facility] Comment on above: Order Comment: Speci men Type: BLOOD SPECIMENOrdering Facility: [facility] Address: [address] [place] [address] Performed By: #### 2 571-8, 00793-1, 3040-3 ####[facility]ATORYCLIA [id number] [address] Creatinine and Glomerular filtration rate.predicted panel (S/P/Bld) 128 mL/min/1.73m??? Normal >=60 [facility] Comment on above: Order Comment: Alex mcgovern Type: BLOOD SPECIMENOrdering Facility: [facility] Address: [address] [place] [address] Result Comment: Cinthya mated Glomerular Filtration Rate (eGFR) is calculated using the 2020 CKD-EPI creatinine equation. This equation utilizes serum creatinine, sex, and age as parameters. The creatinine assay has traceable calibration to isotope dilution-mass spectrometry. Refer to KDIGO guidelines for clinical interpretation. In patients with unstable renal function, e.g. those with acute kidney injury, the eGFR may not accurately reflect actual GFR. Performed By: #### 2 571-8, 91431-5, 3040-3 ####[facility] LABORATORYCLIA [id number] [place] [id number] [place] Glucose [Mass/Vol] 80 mg/dL Normal 74-99 [facility] Comment on above: Order Comment: Alex shaniqua Type: BLOOD SPECIMENOrdering Facility: [facility] Address: [address] [place] [address] Result Comment: The [place] Diabetes Association (ADA) provides guidance for cutoff values for fasting glucose and random glucose. The ADA defines fasting as no caloric intake for at least 8 hours. Fasting plasma glucose results between 100 to 125 mg/dL indicate increased risk for diabetes (prediabetes).Fasting plasma glucose results greater than or equal to 126 mg/dL meet the criteria for diagnosis of diabetes. In the absence of unequivocal hyperglycemia, results should be confirmed by repeat testing. In a patient with classic symptoms of hyperglycemia or hyperglycemic crisis, random plasma glucose results greater than or equal to 200 mg/dL meet the criteria for diagnosis of diabetes.Reference: Standards of Medical Care in Diabetes 2016, [place] Diabetes Association. Diabetes Care. 2016.39(Suppl 1). Performed By: #### 2 571-8, 28621-2, 0-3 ####[facility] LABORATORYCLIA [id number] [place] [address] [place] Phosphate [Mass/Vol] 2.5 mg/dL Low 2.7-4.8 [facility] Comment on above: Order Comment: Speci men Type: BLOOD SPECIMENOrdering Facility: [facility] Address: [address] [place] [address] Performed By: #### 2 571-8, 05539-0, 0-3 ####[facility] LABORATORYCLIA [id number] [place] [address] [place] Potassium [Moles/Vol] 3.7 mmol/L Normal 3.7-5.1 [facility] Comment on above: Order Comment: Speci men Type: BLOOD SPECIMENOrdering Facility: [facility] Address: [address] [place] [address] Performed By: #### 2 571-8, 77038-0, 0-3 ####[facility] LABORATORYCLIA [id number] [place] [address] [place] Sodium [Moles/Vol] 138 mmol/L Normal 136-144 [facility] Comment on above: Order Comment: Speci men Type: BLOOD SPECIMENOrdering Facility: [facility] Address: [address] [place] [address] Performed By: #### 2 571-8, 98735-4, 0-3 ####[facility] LABORATORYCLIA [id number] [place] [address] [place] Urea nitrogen [Mass/Vol] 2 mg/dL Low 7-21 [facility] Comment on above: Order Comment: Speci men Type: BLOOD SPECIMENOrdering Facility: [facility] Address: [address] [place] [address] Performed By: #### 2 571-8, 63499-3, 0-3 ####[facility] LABORATORYCLIA [id number] [place] [address] [place] Trigl SerPl-mCncon 4 Triglyceride [Mass/Vol] 82 mg/dL Normal <150 M [facility] Comment on above: Order Comment: Speci men Type: BLOOD SPECIMENOrdering Facility: [facility] Address: [address] [place] [address] Result Comment: <150 mg/dL, Normal 150-199 mg/dL, Borderline high 200-499 mg/dL, High>499 mg/dL, Very highReference:1. National Cholesterol Education Program ATP III Guideline At-A-Glance Quick Desk Reference: National Heart, Lung, and Blood [place]. National Institutes of Health. 2001: NIH Publication No. 01-3305.Cut Points from the [facility]'s Prevalence Study for ages 20 to 24 years can be located in the following reference: Expert Panel on Integrated Guidelines for Cardiovascular Health and Risk Reduction in Children and Adolescents: National Heart, Lung and Blood [place]. Pediatrics. 2011:128(Suppl 5):X899-221. Performed By: #### 2 571-8, 74999-5, 3040-3 ####[facility] LABORATORYCLIA [id number] [place] [address] [place] Triglyceride [Mass/Vol]on FASTING TIME Non-Fasting Normal [facility] Comment on above: Order Comment: Alex mcgovern Type: BLOOD SPECIMENOrdering Facility: [facility] Address: [address] [place] [address] Performed By: #### 2 571-8, 62345-6, 3040-3 ####[facility] LABORATORYCLIA [id number] [place] [id number] [place] Basic metabolic 2000 panelon 08-01-2024 Anion gap [Moles/Vol] 17 mmol/L High 8-15 [facility] Comment on above: Order Comment: Speci men Type: BLOOD SPECIMENOrdering Facility: [facility] Address: [address] [place] [address] Performed By: #### 2 4321-2, 48578-1, 10390-5, 3040-3, 43861-1, 2777-1 ####[facility] LABORATORYCLIA [id number] [place] [address] [place] Calcium [Mass/Vol] 8.9 mg/dL Normal 8.5-10.2 [facility] Comment on above: Order Comment: Speci men Type: BLOOD SPECIMENOrdering Facility: [facility] Address: [address] [place] [address] Performed By: #### 2 4321-2, 76360-9, 19964-3, 3040-3, 89164-9, 2777-1 ####[facility]ORATORYCLIA [id number] [place] [address] [place] Chloride [Moles/Vol] 99 mmol/L Normal 98-107 [facility] Comment on above: Order Comment: Speci men Type: BLOOD SPECIMENOrdering Facility: [facility] Address: [address] [place] [address] Performed By: #### 2 4321-2, 98507-5, 18282-0, 3040-3, 37773-8, 2777-1 ####[facility]ORATORYCLIA [id number] [place] [address] [place] CO2 [Moles/Vol] 21 mmol/L Low 22-30 [facility] Comment on above: Order Comment: Speci men Type: BLOOD SPECIMENOrdering Facility: [facility] Address: [address] [place] [address] Performed By: #### 2 4321-2, 88196-7, 96035-3, 3040-3, 09742-2, 2777-1 ####[facility]ORATORYCLIA [id number] [place] [address] [place] Creatinine [Mass/Vol] 0.67 mg/dL Normal 0.58-0.96 [facility] Comment on above: Order Comment: Speci men Type: BLOOD SPECIMENOrdering Facility: [facility] Address: [address] [place] [address] Performed By: #### 2 4321-2, 41785-1, 33857-4, 3040-3, 25674-3, 2777-1 ####[facility]ORATORYCLIA [id number] [place] [address] [place] Creatinine and Glomerular filtration rate.predicted panel (S/P/Bld) 125 mL/min/1.73m??? Normal >=60 [facility] Comment on above: Order Comment: Alex mcgovern Type: BLOOD SPECIMENOrdering Facility: [facility] Address: [address] [place] [address] Result Comment: Cinthya mated Glomerular Filtration Rate (eGFR) is calculated using the 2020 CKD-EPI creatinine equation. This equation utilizes serum creatinine, sex, and age as parameters. The creatinine assay has traceable calibration to isotope dilution-mass spectrometry. Refer to KDIGO guidelines for clinical interpretation. In patients with unstable renal function, e.g. those with acute kidney injury, the eGFR may not accurately reflect actual GFR. Performed By: #### 2 4321-2, 88403-5, 09209-0, 0-3, 45693-2, 2777-1 ####[facility]ORATORYCLIA [id number] [place] [address] [place] Glucose [Mass/Vol] 75 mg/dL Normal 74-99 [facility] Comment on above: Order Comment: Alex mcgovern Type: BLOOD SPECIMENOrdering Facility: [facility] Address: [address] [place] [address] Result Comment: The [place] Diabetes Association (ADA) provides guidance for cutoff values for fasting glucose and random glucose. The ADA defines fasting as no caloric intake for at least 8 hours. Fasting plasma glucose results between 100 to 125 mg/dL indicate increased risk for diabetes (prediabetes).Fasting plasma glucose results greater than or equal to 126 mg/dL meet the criteria for diagnosis of diabetes. In the absence of unequivocal hyperglycemia, results should be confirmed by repeat testing. In a patient with classic symptoms of hyperglycemia or hyperglycemic crisis, random plasma glucose results greater than or equal to 200 mg/dL meet the criteria for diagnosis of diabetes.Reference: Standards of Medical Care in Diabetes 2016, [place] Diabetes Association. Diabetes Care. 2016.39(Suppl 1). Performed By: #### 2 4321-2, 51186-8, 82491-7, 3040-3, 92825-1, 2777-1 ####[facility]ORATORYCLIA [id number] [place] [address] [place] Potassium [Moles/Vol] 3.3 mmol/L Low 3.7-5.1 [facility] Comment on above: Order Comment: Speci men Type: BLOOD SPECIMENOrdering Facility: [facility] Address: [address] [place] [address] Performed By: #### 2 4321-2, 23226-1, 19738-0, 3040-3, 18159-6, 2777-1 ####[facility]ORATORYCLIA [id number] [place] [address] [place] Sodium [Moles/Vol] 137 mmol/L Normal 136-144 [facility] Comment on above: Order Comment: Speci men Type: BLOOD SPECIMENOrdering Facility: [facility] Address: [address] [place] [address] Performed By: #### 2 4321-2, 23149-3, 31296-3, 3040-3, 83638-4, 2777-1 ####[facility]ORATORYCLIA [id number] [place] [address] [place] Urea nitrogen [Mass/Vol] 3 mg/dL Low 7-21 [facility] Comment on above: Order Comment: Speci men Type: BLOOD SPECIMENOrdering Facility: [facility] Address: [address] [place] [address] Performed By: #### 2 4321-2, 96992-6, 12912-5, 3040-3, 88618-6, 2777-1 ####[facility] [place] [facility]ORATORYCLIA [id number] [place] [id number] [facility] [place] CASE MANAGEMon 08-01-2024 CASE MANAGEM Normal [facility] CBC panel Auto (Bld)on 08-01 Erythrocyte distribution width (RBC) [Ratio] 15.7 % High 11.5-15.0 [facility] Comment on above: Order Comment: Speci men Type: BLOOD SPECIMENOrdering Facility: [facility] Address: [address] [place] [address] Performed By: #### 5 8410-2 ####[facility]ORATORYCLIA [id number] [place] [id number] [place] Hematocrit (Bld) [Volume fraction] 37.5 % Normal 36.0-46.0 [facility] Comment on above: Order Comment: Speci men Type: BLOOD SPECIMENOrdering Facility: [facility] Address: [address] [place] [address] Performed By: #### 5 8410-2 ####[facility] LABORATORYCLIA [id number] [address] Hemoglobin (Bld) [Mass/Vol] 12.1 g/dL Normal 11.5-15.5 [facility] Comment on above: Order Comment: Speci men Type: BLOOD SPECIMENOrdering Facility: [facility] Address: [address] [place] [address] Performed By: #### 5 8410-2 ####[facility] LABORATORYCLIA [id number] [address] MCH (RBC) [Entitic mass] 26.2 pg Normal 26.0-34.0 [facility] Comment on above: Order Comment: Speci men Type: BLOOD SPECIMENOrdering Facility: [facility] Address: [address] [place] [address] Performed By: #### 5 8410-2 ####[facility] LABORATORYCLIA [id number] [address] MCHC (RBC) [Mass/Vol] 32.3 g/dL Normal 30.5-36.0 [facility] Comment on above: Order Comment: Speci men Type: BLOOD SPECIMENOrdering Facility: [facility] Address: [address] [place] [address] Performed By: #### 5 8410-2 ####[facility] LABORATORYCLIA [id number] [address] MCV (RBC) [Entitic vol] 81.2 fL Normal 80.0-100.0 [facility] Comment on above: Order Comment: Speci men Type: BLOOD SPECIMENOrdering Facility: [facility] Address: [address] [place] [address] Performed By: #### 5 8410-2 ####[facility] LABORATORYCLIA [id number] [place] [address] [place] Nucleated RBC (Bld) [#/Vol] 10*3/uL Normal <0.01 [facility] Comment on above: Order Comment: Speci men Type: BLOOD SPECIMENOrdering Facility: [facility] Address: [address] [place] [address] Performed By: #### 5 8410-2 ####[facility] LABORATORYCLIA [id number] [place] [address] [place] Platelet mean volume (Bld) [Entitic vol] 9.7 fL Normal 9.0-12.7 [facility] Comment on above: Order Comment: Speci men Type: BLOOD SPECIMENOrdering Facility: [facility] Address: [address] [place] [address] Performed By: #### 5 8410-2 ####[facility] LABORATORYCLIA [id number] [address] [place] Platelets (Bld) [#/Vol] 234 10*3/uL Normal 150-400 [facility] Comment on above: Order Comment: Speci men Type: BLOOD SPECIMENOrdering Facility: [facility] Address: [address] [place] [address] Performed By: #### 5 8410-2 ####[facility] LABORATORYCLIA [id number] [place] [address] [place] RBC (Bld) [#/Vol] 4.62 10*6/uL Normal 3.90-5.20 [facility] Comment on above: Order Comment: Speci men Type: BLOOD SPECIMENOrdering Facility: [facility] Address: [address] [place] [address] Performed By: #### 5 8410-2 ####[facility] LABORATORYCLIA [id number] [address] [place] WBC (Bld) [#/Vol] 7.83 10*3/uL Normal 3.70-11.00 [facility] Comment on above: Order Comment: Speci men Type: BLOOD SPECIMENOrdering Facility: [facility] Address: [address] [place] [address] Performed By: #### 5 8410-2 ####[facility] LABORATORYCLIA [id number] [place] [address] [facility] ECG COMPLETEon 08-01-2024 ECG COMPLETE Normal [facility] Hepatic function 2000 panelo n 08-01-2024 Albumin [Mass/Vol] 4.0 g/dL Normal 3.9-4.9 [facility] Comment on above: Order Comment: Speci men Type: BLOOD SPECIMENOrdering Facility: [facility] Address: [address] [place] [address] Performed By: #### 2 4321-2, 31478-6, 40991-8, 3040-3, 22990-6, 2777-1 ####[facility] [facility]ORATORYCLIA [id number] [address] [place] [facility] ALP [Catalytic activity/Vol] 51 U/L Normal 34-123 [facility] Comment on above: Order Comment: Speci men Type: BLOOD SPECIMENOrdering Facility: [facility] Address: [address] [place] [address] Performed By: #### 2 4321-2, 55481-7, 51491-2, 3040-3, 38043-7, 2777-1 ####[facility] [facility]ORATORYCLIA [id number] [address] ALT [Catalytic activity/Vol] 13 U/L Normal 7-38 [facility] Comment on above: Order Comment: Speci men Type: BLOOD SPECIMENOrdering Facility: [facility] Address: [address] [place] [address] Performed By: #### 2 4321-2, 51383-9, 97077-4, 3040-3, 09007-5, 2777-1 ####[facility] [facility]ORATORYCLIA [id number] [place] [id number] [facility] AST [Catalytic activity/Vol] 13 U/L Normal 13-35 [facility] Comment on above: Order Comment: Speci men Type: BLOOD SPECIMENOrdering Facility: [facility] Address: [address] [place] [address] Performed By: #### 2 4321-2, 55967-9, 15207-4, 3040-3, 15170-3, 2777-1 ####[facility]ORATORYCLIA [id number] [place] [address] [place] Bilirubin [Mass/Vol] 0.3 mg/dL Normal 0.2-1.3 [facility] Comment on above: Order Comment: Speci men Type: BLOOD SPECIMENOrdering Facility: [facility] Address: [address] [place] [address] Performed By: #### 2 4321-2, 28686-0, 02476-6, 3040-3, 67826-7, 2777-1 ####[facility]ORATORYCLIA [id number] [place] [id number] [place] Bilirubin.conjugated [Mass/Vol] mg/dL Normal <0.2 [facility] Comment on above: Order Comment: Speci men Type: BLOOD SPECIMENOrdering Facility: [facility] Address: [address] [place] [address] Performed By: #### 2 4321-2, 48440-7, 31801-6, 3040-3, 61826-5, 2777-1 ####[facility] [place] [facility]ORATORYCLIA [id number] [place] [id number] [place] Protein [Mass/Vol] 7.1 g/dL Normal 6.3-8.0 [facility] Comment on above: Order Comment: Speci men Type: BLOOD SPECIMENOrdering Facility: [facility] Address: [address] [place] [address] Performed By: #### 2 4321-2, 30766-6, 29807-6, 3040-3, 38861-3, 2777-1 ####[facility] [facility]ORATORYCLIA [id number] [place] [address] [place] IGG SUBCLASS 1,2,3,4on 08-01 IgG subclass 1 (S) [Mass/Vol] 468.9 mg/dL Normal 382.4-928. 6 [facility] Comment on above: Order Comment: Speci men Type: BLOOD SPECIMENOrdering Facility: [facility] Address: [address] [place] [address] Performed By: #### I G1234 ####[facility] LABCLIA [id number] [place] [address] [place] IgG subclass 2 (S) [Mass/Vol] 474.5 mg/dL Normal 241.8-700. 3 [facility] Comment on above: Order Comment: Speci men Type: BLOOD SPECIMENOrdering Facility: [facility] Address: [address] [place] [address] Performed By: #### I G1234 ####[facility] LABCLIA [id number] [place] [address] [place] IgG subclass 3 (S) [Mass/Vol] 21.1 mg/dL Low 21.8-176.1 [facility] Comment on above: Order Comment: Speci men Type: BLOOD SPECIMENOrdering Facility: [facility] Address: [address] [place] [address] Performed By: #### I G1234 ####[facility] LABIA [id number] [place] [address] [place] IgG subclass 4 (S) [Mass/Vol] 19.4 mg/dL Normal 3.9-86.4 [facility] Comment on above: Order Comment: Speci men Type: BLOOD SPECIMENOrdering Facility: [facility] Address: [address] [place] [address] Performed By: #### I G1234 ####[facility] LABCLIA [id number] [place] [address] [place] IgG SerPl-mCncon 08-01-2024 IgG [Mass/Vol] 1083 mg/dL Normal 700-1600 [facility] Comment on above: Order Comment: Speci men Type: BLOOD SPECIMENOrdering Facility: [facility] Address: [address] [place] [address] Performed By: #### 2 465-3 ####[facility] LABIA [id number] [place] [address] [place] Lipase SerPl-cCncon 08-01-20 24 Lipase [Catalytic activity/Vol] 246 U/L High 16-61 [facility] Comment on above: Order Comment: Speci men Type: BLOOD SPECIMENOrdering Facility: [facility] Address: [address] [place] [address] Performed By: #### 2 4321-2, 98984-7, 48437-6, 3040-3, 81142-4, 2777-1 ####[facility]ORATORYCLIA [id number] [place] [address] [place] Lipid 1996 panelon 4 Cholesterol [Mass/Vol] 195 mg/dL Normal <200 [facility] Comment on above: Order Comment: Speci men Type: BLOOD SPECIMENOrdering Facility: [facility] Address: [address] [place] [address] Result Comment: <200 mg/dL, Desirable 200-239 mg/dL, Borderline high>239 mg/dL, High Performed By: #### 2 4321-2, 77670-0, 34125-5, 3040-3, 36068-6, 2777-1 ####[facility]ATORYCLIA [id number] [address] Cholesterol in HDL [Mass/Vol] 31 mg/dL Low >39 [facility] Comment on above: Order Comment: Speci men Type: BLOOD SPECIMENOrdering Facility: [facility] Address: [address] [place] [address] Result Comment: 40-5 9 mg/dL, Acceptable>59 mg/dL, High: Negative risk factor for coronary heart disease<40 mg/dL, Low: Positive risk factor for coronary heart disease Performed By: #### 2 4321-2, 87455-0, 76525-3, 3040-3, 96915-2, 2777-1 ####[facility]ATORYCLIA [id number] [address] Cholesterol in LDL [Mass/Vol] 146 mg/dL High <100 [facility] Comment on above: Order Comment: Speci men Type: BLOOD SPECIMENOrdering Facility: [facility] Address: [address] [place] [address] Result Comment: <100 mg/dL, Optimal 100-129 mg/dL, Near optimal/above optimal 130-159 mg/dL, Borderline high 160-189 mg/dL, High>189 mg/dL, Very highSecondary prevention optimal LDL Cholesterol levels are recommended to be < 70 mg/dL Performed By: #### 2 4321-2, 01034-7, 20380-5, 3040-3, 21267-2, 2777-1 ####[facility]ORATORYCLIA [id number] [place] [address] [place] Cholesterol in LDL/Cholesterol in HDL [Mass ratio] 4.71 {ratio} High <2.54 [facility] Comment on above: Order Comment: Speci men Type: BLOOD SPECIMENOrdering Facility: [facility] Address: [address] [place] [address] Result Comment: Refe rence:1. National Cholesterol Education Program ATP III Guideline At-A-Glance Quick Desk Reference: National Heart, Lung, and Blood [place]. National Institutes of Health. 2001: NIH Publication No. 01-3305.2. An International Atherosclerosis Society position paper: global recommendations for the management of dyslipidemia: executive summary, Atherosclerosis. 2014: 232(2):410-413. Performed By: #### 2 4321-2, 56130-7, 86466-3, 3040-3, 16168-5, 2777-1 ####[facility]ORATORYCLIA [id number] [place] [id number] [place] [facility] Cholesterol in VLDL [Mass/Vol] 18 mg/dL Normal <30 [facility] Comment on above: Order Comment: Speci men Type: BLOOD SPECIMENOrdering Facility: [facility] Address: [address] [place] [address] Performed By: #### 2 4321-2, 17027-0, 53443-1, 3040-3, 01352-1, 2777-1 ####[facility]ORATORYCLIA [id number] [place] [address] [place] Cholesterol non HDL [Mass/Vol] 164 mg/dL High <130 [facility] Comment on above: Order Comment: Speci men Type: BLOOD SPECIMENOrdering Facility: [facility] Address: [address] [place] [address] Result Comment: <130 mg/dL, Optimal 130-159 mg/dL, Near optimal/above optimal 160-189 mg/dL, Borderline high 190-219 mg/dL, High>219 mg/dL, Very highSecondary prevention optimal non HDL Cholesterol levels are recommended to be <100 mg/dL Performed By: #### 2 4321-2, 57670-3, 58702-7, 3040-3, 13298-6, 2777-1 ####[facility]ATORYCLIA [id number] [address] Cholesterol.total/Choles terol in HDL [Mass ratio] 6.29 {ratio} High <5.10 [facility] Comment on above: Order Comment: Speci men Type: BLOOD SPECIMENOrdering Facility: [facility] Address: [address] [place] [address] Performed By: #### 2 4321-2, 67358-7, 09151-5, 3040-3, 22248-0, 2777-1 ####[facility] [facility]ORATORYCLIA [id number] [address] FASTING TIME 10 hrs Normal [facility] Comment on above: Order Comment: Speci men Type: BLOOD SPECIMENOrdering Facility: [facility] Address: [address] [place] [address] Performed By: #### 2 4321-2, 43862-8, 98513-5, 3040-3, 39359-9, 2777-1 ####[facility]ORATORYCLIA [id number] [place] [id number] [facility] Triglyceride [Mass/Vol] 88 mg/dL Normal <150 [facility] Comment on above: Order Comment: Speci men Type: BLOOD SPECIMENOrdering Facility: [facility] Address: [address] [place] [place] [address] Result Comment: <150 mg/dL, Normal 150-199 mg/dL, Borderline high 200-499 mg/dL, High>499 mg/dL, Very high Performed By: #### 2 4321-2, 86095-9, 11731-5, 3040-3, 30742-8, 2777-1 ####[facility]ORATORYCLIA [id number] [place] [address] [place] Magnesium SerPl-mCncon 08-01 Magnesium [Mass/Vol] 1.8 mg/dL Normal 1.7-2.3 [facility] Comment on above: Order Comment: Speci men Type: BLOOD SPECIMENOrdering Facility: [facility] Address: [address] [place] [address] Performed By: #### 2 4321-2, 90462-8, 60163-7, 3040-3, 22350-1, 2777-1 ####[facility]ATORYCLIA [id number] [place] [address] [facility] [place] PHOSPHATIDYLETHANOL (PETH)on 08-01-2024 EER PETH See Note Normal [facility] Comment on above: Order Comment: Speci men Type: BLOOD SPECIMENOrdering Facility: [facility] Address: [address] [place] [address] Result Comment: Auth orized individuals can access the [employer]anced Report using the following link:[email or web address] Performed By: #### P ETH ####[facility]ORATORIESCLIA [id number] [place] [address] PETH 16:0/18.2 (PLPETH) <10 Normal [facility] Comment on above: Order Comment: Speci men Type: BLOOD SPECIMENOrdering Facility: [facility] Address: [address] [place] [address] Result Comment: Refe rence ranges are not well established. Performed By: #### P ETH ####[facility]ORATORIESCLIA [id number] [place] [address] PETH 16:0/18:1 (POPETH) <10 Normal M [facility] Comment on above: Order Comment: Speci men Type: BLOOD SPECIMENOrdering Facility: [facility] Address: [address] [place], [place] [address] Result Comment: PEth 16:0/18:1 (POPEth)Less than 10 ng/mL............Not detectedLess than 20 ng/mL............Abstinence or light [id number] - 200 ng/mL................Moderate alcohol consumptionGreater than 200 ng/mL........Heavy alcohol consumption or chronicalcohol use(Reference: Linn Rosenberg and Tiffany Rogers 2018 J. Forensic Sci) Performed By: #### P ETH ####[facility] [id number] [place] [address] PETH INTERPRETATION See Comment [facility] Comment on above: Order Comment: Speci men Type: BLOOD SPECIMENOrdering Facility: [facility] Address: [address] [place] [address] Result Comment: Phos phatidylethanol (PEth) is a group of phospholipids formed inthe presence of ethanol, phospholipase D and phosphatidylcholine.PEth is known to be a direct alcohol biomarker. The predominantPEth homologues are PEth 16:0/18:1 (POPEth) and PEth 16:0/18:2(PLPEth), which account for 37-46% and 26-28% of the total PEthhomologues, respectively. PEth is incorporated into thephospholipid membrane of red blood cells and has a generalhalf-life of 4-10 days and a window of detection of 2-4 weeks.However, the window of detection is longer in individuals whochronically or excessively consume alcohol. The limit ofquantification is 10 ng/mL. Serial monitoring of PEth may behelpful in monitoring alcohol abstinence over time. PEth resultsshould be interpreted in the context of the patient's clinical andbehavioral history.Patients with advanced liver disease may have falsely elevatedPEth concentrations (Liat MONROY et al 2018, Alcoholism Clinical &Experimental Research).This test was developed and its performance characteristicsdetermined by [email or web address]. It has not been cleared orapproved by the U.S. Food and Drug Administration. This test wasperformed in a CLIA-certified laboratory and is intended forclinical purposes.Performed By: [email or web address] [place], [place] [address]Axwbcnyymh Director: Rolando Butler MD, PhDCLIA Number: [id number] Performed By: #### P ETH ####[facility] LABORATORIESCLIA [id number] [place] [address] Phosphate SerPl-mCncon 08-01 Phosphate [Mass/Vol] 2.3 mg/dL Low 2.7-4.8 [facility] Comment on above: Order Comment: Speci men Type: BLOOD SPECIMENOrdering Facility: [facility] Address: [address] [place] [address] Performed By: #### 2 4321-2, 62831-3, 00291-1, 3040-3, 36532-4, 2777-1 ####[facility]ORATORYCLIA [id number] [address] [facility] SURGICAL PATHOLOGYon 024 CASE REPORT Normal [facility] Comment on above: Order Comment: Speci men Type: TISSUE SPECIMENOrdering Facility: [facility] Address: [address] [place] [address] Result Comment: Surg ica Pathology Report Case: [id number] Provider: Alberto Encarnacion MD Collected: 08/01/2024 09:46 AMOrdering Location: [facility] Endoscopy Received: 08/01/2024 11:21 AMPathologist: Jarred Ford MD, PhDSpecimens: A) - Small Bowel, Duodenum, Biopsy, celiac B) - Stomach, Biopsy, hp Performed By: #### S ####[facility] LABCLIA [id number] [address] FINAL DIAGNOSIS Normal [facility] Comment on above: Order Comment: Speci men Type: TISSUE SPECIMENOrdering Facility: [facility] Address: [address] [place] [address] Result Comment: A. D uodenum, biopsy:-Duodenal mucosa with preserved villous architecture.-No increase in intraepithelial lymphocytes.B. Stomach, biopsy:-Swmrurd-po-tsbo chronic inactive gastritis and reactive change in antral mucosa.-Oxyntic mucosa with no diagnostic abnormality.-Negative for intestinal metaplasia or dysplasia.-No H. pylori on routine stain. Performed By: #### S ####[facility] LABCLIA [id number] [address] [place] FINAL PERFORMING LAB Normal [facility] Comment on above: Order Comment: Speci men Type: TISSUE SPECIMENOrdering Facility: [facility] Address: [address] [place] [address] Result Comment: Diag nostic interpretation performed at [facility], [address] [place] [address] CLIA# [id number] Director: Abhishek Mosley M.D. Performed By: #### S ####[facility] LABCLIA [id number] [address] [place] GROSS DESCRIPTION [facility] Comment on above: Order Comment: Speci men Type: TISSUE SPECIMENOrdering Facility: [facility] Address: [address] [place] [address] Result Comment: A. S mall Bowel, Duodenum, BiopsyReceived in formalin are multiple pieces of suggs, soft tissue aggregating to 1.0 x 0.2 x 0.2 cm. Totally submitted in one cassette.B. Stomach, BiopsyReceived in formalin are multiple pieces of suggs, soft tissue aggregating to 0.9 x 0.2 x 0.2 cm. Totally submitted in one cassette.Gross examination performed at [facility], [address] [place] [address].[place] [id number] 08/01/2024 3:55 PM Performed By: #### S ####[facility] LABCLIA [id number] [place] [address] [place] Upper GI endoscopyon 024 Upper GI endoscopy Normal [facility] CBC panel Auto (Bld)on 07-31 Erythrocyte distribution width (RBC) [Ratio] 15.6 % High 11.5-15.0 [facility] Comment on above: Order Comment: Speci men Type: BLOOD SPECIMENOrdering Facility: [facility] Address: [address] [place] [address] Performed By: #### 5 8410-2 ####[facility]ORATORYCLIA [id number] [address] [place] Hematocrit (Bld) [Volume fraction] 38.0 % Normal 36.0-46.0 [facility] Comment on above: Order Comment: Speci men Type: BLOOD SPECIMENOrdering Facility: [facility] Address: [address] [place] [address] Performed By: #### 5 8410-2 ####[facility]ORATORYCLIA [id number] [address] [place] Hemoglobin (Bld) [Mass/Vol] 12.4 g/dL Normal 11.5-15.5 [facility] Comment on above: Order Comment: Speci men Type: BLOOD SPECIMENOrdering Facility: [facility] Address: [address] [place] [address] Performed By: #### 5 8410-2 ####[facility]ATORYCLIA [id number] [address] [place] MCH (RBC) [Entitic mass] 26.2 pg Normal 26.0-34.0 [facility] Comment on above: Order Comment: Speci men Type: BLOOD SPECIMENOrdering Facility: [facility] Address: [address] [place] [address] Performed By: #### 5 8410-2 ####[facility]ATORYCLIA [id number] [address] [place] MCHC (RBC) [Mass/Vol] 32.6 g/dL Normal 30.5-36.0 [facility] Comment on above: Order Comment: Speci men Type: BLOOD SPECIMENOrdering Facility: [facility] Address: [address] [place] [address] Performed By: #### 5 8410-2 ####[facility]ORATORYCLIA [id number] [address] [place] MCV (RBC) [Entitic vol] 80.2 fL Normal 80.0-100.0 M [facility] Comment on above: Order Comment: Speci men Type: BLOOD SPECIMENOrdering Facility: [facility] Address: [address] [place] [address] Performed By: #### 5 8410-2 ####[facility]ORATORYCLIA [id number] [place] [address] [place] Nucleated RBC (Bld) [#/Vol] 10*3/uL Normal <0.01 [facility] Comment on above: Order Comment: Speci men Type: BLOOD SPECIMENOrdering Facility: [facility] Address: [address] [place] [address] Performed By: #### 5 8410-2 ####[facility]ORATORYCLIA [id number] [address] [place] Platelet mean volume (Bld) [Entitic vol] 9.6 fL Normal 9.0-12.7 [facility] Comment on above: Order Comment: Speci men Type: BLOOD SPECIMENOrdering Facility: [facility] Address: [address] [place] [address] Performed By: #### 5 8410-2 ####[facility]ORATORYCLIA [id number] [place] [address] [place] Platelets (Bld) [#/Vol] 228 10*3/uL Normal 150-400 [facility] Comment on above: Order Comment: Speci men Type: BLOOD SPECIMENOrdering Facility: [facility] Address: [address] [place] [address] Performed By: #### 5 8410-2 ####[facility]ORATORYCLIA [id number] [place] [address] [place] RBC (Bld) [#/Vol] 4.74 10*6/uL Normal 3.90-5.20 [facility] Comment on above: Order Comment: Speci men Type: BLOOD SPECIMENOrdering Facility: [facility] Address: [address] [place] [address] Performed By: #### 5 8410-2 ####[facility]ORATORYCLIA [id number] [place] [address] [place] WBC (Bld) [#/Vol] 7.09 10*3/uL Normal 3.70-11.00 [facility] Comment on above: Order Comment: Speci men Type: BLOOD SPECIMENOrdering Facility: [facility] Address: [address] [place] [address] Performed By: #### 5 8410-2 ####[facility]ORATORYCLIA [id number] [place] [address] [place] CONSULTon 07-31-2024 CONSULT Normal [facility] DRUG ZHOU UR (LAB)on 2023 DRUG DETECTED SEE NOTE [facility] Comment on above: Order Comment: Speci men Type: URINE SPECIMENOrdering Facility: [facility] Address: [address] [place] [address] Result Comment: Acet aminophen. Amitriptyline. Nortriptyline.The following compounds have been detected by GC-MS librarymatch: Gabapentin. Hydromorphone/Morphine; assay unable todistinguish. Metoclopramide.No other drugs detected. Quantitative testing may beavailable at an additional charge. Specimens are retainedfor 2 weeks.This is a screening assay only and false-positive orfalse-negative results can occur. If confirmation testingof any drugs found is needed, please call the lab.Specimens are retained in the laboratory for two weeks.This test is not intended for use in compliance monitoringor employment-related testing. ADDITIONAL INFORMATION This test was developed and its performance characteristicsdetermined by [facility] in a manner consistent with CLIArequirements. This test has not been cleared or approved bythe U.S. Food and Drug Administration.Test Performed by:[address] [address]Cut Director: Justen Tripathi Ph.D.; CLIA# [id number] Performed By: #### U DRUG ####[facility] LABCLIA [id number] [place] [address] SUSPECT DRUG DNR Normal [facility] Comment on above: Order Comment: Speci men Type: URINE SPECIMENOrdering Facility: [facility] Address: [address] [place] [address] Performed By: #### U DRUGC ####[facility] LABCLIA [id number] [place] [address] ECG COMPLETEon 07-31-2024 ECG COMPLETE Normal [facility] Lipase SerPl-cCncon 07-31-20 24 Lipase [Catalytic activity/Vol] 193 U/L High 16-61 [facility] Comment on above: Order Comment: Speci men Type: BLOOD SPECIMENOrdering Facility: [facility] Address: [address] [place] [address] Performed By: #### 2 4362-6, 3040-3 ####[facility]ORATORYCLIA [id number] [address] [place] NURSING PROGon 07-31-[address] [facility] Renal function 2000 panelon 07-31-2024 Albumin [Mass/Vol] 4.1 g/dL Normal 3.9-4.9 [facility] Comment on above: Order Comment: Speci men Type: BLOOD SPECIMENOrdering Facility: [facility] Address: [address] [place] [address] Performed By: #### 2 4362-6, 3040-3 ####[facility]ORATORYCLIA [id number] [place] [id number] [place] Anion gap [Moles/Vol] 16 mmol/L High 8-15 [facility] Comment on above: Order Comment: Speci men Type: BLOOD SPECIMENOrdering Facility: [facility] Address: [address] [place] [address] Performed By: #### 2 4362-6, 3040-3 ####[facility]ORATORYCLIA [id number] [place] [id number] [place] Calcium [Mass/Vol] 8.9 mg/dL Normal 8.5-10.2 [facility] Comment on above: Order Comment: Speci men Type: BLOOD SPECIMENOrdering Facility: [facility] Address: [address] [place] [address] Performed By: #### 2 4362-6, 3040-3 ####[facility]ORATORYCLIA [id number] [place] [address] [place] Chloride [Moles/Vol] 101 mmol/L Normal 98-107 [facility] Comment on above: Order Comment: Speci men Type: BLOOD SPECIMENOrdering Facility: [facility] Address: [address] [place] [address] Performed By: #### 2 4362-6, 3040-3 ####[facility]ORATORYCLIA [id number] [place] [id number] [place] CO2 [Moles/Vol] 18 mmol/L Low 22-30 [facility] Comment on above: Order Comment: Speci men Type: BLOOD SPECIMENOrdering Facility: [facility] Address: [address] [place] [address] Performed By: #### 2 4362-6, 0-3 ####[facility]ORATORYCLIA [id number] [place] [address] [place] Creatinine [Mass/Vol] 0.73 mg/dL Normal 0.58-0.96 [facility] Comment on above: Order Comment: Speci men Type: BLOOD SPECIMENOrdering Facility: [facility] Address: [address] [place] [address] Performed By: #### 2 4362-6, 3040-3 ####[facility]ORATORYCLIA [id number] [place] [address] [facility] [place] Creatinine and Glomerular filtration rate.predicted panel (S/P/Bld) 118 mL/min/1.73m??? Normal >=60 [facility] Comment on above: Order Comment: Speci men Type: BLOOD SPECIMENOrdering Facility: [facility] Address: [address] [place] [address] Result Comment: Cinthya mated Glomerular Filtration Rate (eGFR) is calculated using the 2020 CKD-EPI creatinine equation. This equation utilizes serum creatinine, sex, and age as parameters. The creatinine assay has traceable calibration to isotope dilution-mass spectrometry. Refer to KDIGO guidelines for clinical interpretation. In patients with unstable renal function, e.g. those with acute kidney injury, the eGFR may not accurately reflect actual GFR. Performed By: #### 2 4362-6, 3040-3 ####[facility]ORATORYCLIA [id number] [place] [address] [place] Glucose [Mass/Vol] 73 mg/dL Low 74-99 [facility] Comment on above: Order Comment: Alex mcgovern Type: BLOOD SPECIMENOrdering Facility: [facility] Address: [address] [place] [address] Result Comment: The [place] Diabetes Association (ADA) provides guidance for cutoff values for fasting glucose and random glucose. The ADA defines fasting as no caloric intake for at least 8 hours. Fasting plasma glucose results between 100 to 125 mg/dL indicate increased risk for diabetes (prediabetes).Fasting plasma glucose results greater than or equal to 126 mg/dL meet the criteria for diagnosis of diabetes. In the absence of unequivocal hyperglycemia, results should be confirmed by repeat testing. In a patient with classic symptoms of hyperglycemia or hyperglycemic crisis, random plasma glucose results greater than or equal to 200 mg/dL meet the criteria for diagnosis of diabetes.Reference: Standards of Medical Care in Diabetes 2016, [place] [employer] Association. Diabetes Care. 2016.39(Suppl 1). Performed By: #### 2 4362-6, 0-3 ####[facility]ORATORYCLIA [id number] [place] [id number] [place] Phosphate [Mass/Vol] 3.4 mg/dL Normal 2.7-4.8 [facility] Comment on above: Order Comment: Alex mcgovern Type: BLOOD SPECIMENOrdering Facility: [facility] Address: [address] [place] [address] Performed By: #### 2 4362-6, 0-3 ####[facility]ORATORYCLIA [id number] [place] [address] [place] Potassium [Moles/Vol] 3.5 mmol/L Low 3.7-5.1 [facility] Comment on above: Order Comment: Alex mcgovern Type: BLOOD SPECIMENOrdering Facility: [facility] Address: [address] [place] [id number] Performed By: #### 2 4362-6, 3040-3 ####[facility]ORATORYCLIA [id number] [place] [address] [place] Sodium [Moles/Vol] 135 mmol/L Low 136-144 [facility] Comment on above: Order Comment: Speci men Type: BLOOD SPECIMENOrdering Facility: [facility] Address: [address] [place] [address] Performed By: #### 2 4362-6, 3040-3 ####[facility]ORATORYCLIA [id number] [place] [address] [place] Urea nitrogen [Mass/Vol] 6 mg/dL Low 7-21 [facility] Comment on above: Order Comment: Speci men Type: BLOOD SPECIMENOrdering Facility: [facility] Address: [address] [place] [address] Performed By: #### 2 4362-6, 3040-3 ####[facility]ORATORYCLIA [id number] [place] [address] [place] US ABD RIGHT UPPER QUADRANTo n 07-31-2024 US ABD RIGHT UPPER QUADRANT Normal [facility] CASE MGT INIT ASSESon 2023 CASE MGT INIT [facility] CBC panel Auto (Bld)on 07-30 Erythrocyte distribution width (RBC) [Ratio] 15.9 % High 11.5-15.0 [facility] Comment on above: Order Comment: Speci men Type: BLOOD SPECIMENOrdering Facility: [facility] Address: [address] [place] [address] Performed By: #### 5 8410-2 ####[facility]ORATORYCLIA [id number] [address] [place] Hematocrit (Bld) [Volume fraction] 43.4 % Normal 36.0-46.0 [facility] Comment on above: Order Comment: Speci men Type: BLOOD SPECIMENOrdering Facility: [facility] Address: [address] [place] [address] Performed By: #### 5 8410-2 ####[facility]ORATORYCLIA [id number] [address] Hemoglobin (Bld) [Mass/Vol] 13.9 g/dL Normal 11.5-15.5 [facility] Comment on above: Order Comment: Speci men Type: BLOOD SPECIMENOrdering Facility: [facility] Address: [address] [place] [address] Performed By: #### 5 8410-2 ####[facility]ORATORYCLIA [id number] [address] [place] MCH (RBC) [Entitic mass] 25.8 pg Low 26.0-34.0 [facility] Comment on above: Order Comment: Speci men Type: BLOOD SPECIMENOrdering Facility: [facility] Address: [address] [place] [address] Performed By: #### 5 8410-2 ####[facility]ORATORYCLIA [id number] [address] MCHC (RBC) [Mass/Vol] 32.0 g/dL Normal 30.5-36.0 [facility] Comment on above: Order Comment: Speci men Type: BLOOD SPECIMENOrdering Facility: [facility] Address: [address] [place] [address] Performed By: #### 5 8410-2 ####[facility]ORATORYCLIA [id number] [address] MCV (RBC) [Entitic vol] 80.5 fL Normal 80.0-100.0 M [facility] Comment on above: Order Comment: Speci men Type: BLOOD SPECIMENOrdering Facility: [facility] Address: [address] [place] [address] Performed By: #### 5 8410-2 ####[facility]ORATORYCLIA [id number] [address] Nucleated RBC (Bld) [#/Vol] 10*3/uL Normal <0.01 [facility] Comment on above: Order Comment: Speci men Type: BLOOD SPECIMENOrdering Facility: [facility] Address: [address] [place] [address] Performed By: #### 5 8410-2 ####[facility]ATORYCLIA [id number] [address] Platelet mean volume (Bld) [Entitic vol] 9.8 fL Normal 9.0-12.7 [facility] Comment on above: Order Comment: Speci men Type: BLOOD SPECIMENOrdering Facility: [facility] Address: [address] [place] [address] Performed By: #### 5 8410-2 ####[facility]ATORYCLIA [id number] [address] Platelets (Bld) [#/Vol] 291 10*3/uL Normal 150-400 [facility] Comment on above: Order Comment: Speci men Type: BLOOD SPECIMENOrdering Facility: [facility] Address: [address] [place] [address] Performed By: #### 5 8410-2 ####[facility]ORATORYCLIA [id number] [address] RBC (Bld) [#/Vol] 5.39 10*6/uL High 3.90-5.20 [facility] Comment on above: Order Comment: Speci men Type: BLOOD SPECIMENOrdering Facility: [facility] Address: [address] [place] [address] Performed By: #### 5 8410-2 ####[facility]ATORYCLIA [id number] [address] WBC (Bld) [#/Vol] 8.82 10*3/uL Normal 3.70-11.00 [facility] Comment on above: Order Comment: Speci men Type: BLOOD SPECIMENOrdering Facility: [facility] Address: [address] [place] [address] Performed By: #### 5 8410-2 ####[facility]ATORYCLIA [id number] [address] ECG COMPLETEon 07-30-2024 ECG COMPLETE Normal [facility] Magnesium SerPl-mCncon 07-30 Magnesium [Mass/Vol] 2.1 mg/dL Normal 1.7-2.3 [facility] Comment on above: Order Comment: Speci men Type: BLOOD SPECIMENOrdering Facility: [facility] Address: [facility] [place] [address] Performed By: #### 2 4362-6, , 2776-09 ####[facility]ORATORYCLIA [id number] [place], [place] [address] [place] [place] [address] [place] NURSING PROGon 07-30-2024 NURSING PROG Normal [facility] Renal Func 2000 Pnl SerPlon 07-30-2024 Phosphate [Mass/Vol] 3.1 mg/dL Normal 2.7-4.8 [facility] Comment on above: Order Comment: Speci men Type: BLOOD SPECIMENOrdering Facility: [facility] Address: [facility] [place] [phone] Performed By: #### 2 4362-6, , 2776-09 ####[place] LABORATORYCLIA [id number] [place] [address] [place] Renal function 2000 panelon 07-30-2024 Albumin [Mass/Vol] 4.0 g/dL Normal 3.9-4.9 [facility] Comment on above: Order Comment: Speci men Type: BLOOD SPECIMENOrdering Facility: [facility] Address: [facility] [place] [phone] Performed By: #### 2 4362-6, , 2776-09 ####[place] LABORATORYCLIA [id number] [place] [id number] [place] Anion gap [Moles/Vol] 22 mmol/L High 8-15 [facility] Comment on above: Order Comment: Speci men Type: BLOOD SPECIMENOrdering Facility: [facility] Address: [address] [place] [address] Performed By: #### 2 4362-6, , 2776-09 ####[facility]ORATORYCLIA [id number] [place] [address] [place] Calcium [Mass/Vol] 9.0 mg/dL Normal 8.5-10.2 [facility] Comment on above: Order Comment: Speci men Type: BLOOD SPECIMENOrdering Facility: [facility] Address: [address] [place] [phone] Performed By: #### 2 4362-6, , 2776-09 ####[facility] LABORATORYCLIA [id number] [place] [address] [place] Chloride [Moles/Vol] 98 mmol/L Normal 98-107 [facility] Comment on above: Order Comment: Speci men Type: BLOOD SPECIMENOrdering Facility: [facility] Address: [address] [place] [address] Performed By: #### 2 4362-6, , 2776-09 ####[facility] LABORATORYCLIA [id number] [place] [address] [place] CO2 [Moles/Vol] 15 mmol/L Low 22-30 [facility] Comment on above: Order Comment: Speci men Type: BLOOD SPECIMENOrdering Facility: [facility] Address: [address] [place] [address] Performed By: #### 2 4362-6, , 2776-09 ####[facility] LABORATORYCLIA [id number] [place] [address] [place] Creatinine [Mass/Vol] 0.76 mg/dL Normal 0.58-0.96 [facility] Comment on above: Order Comment: Speci men Type: BLOOD SPECIMENOrdering Facility: [facility] Address: [address] [place] [address] Performed By: #### 2 4362-6, , 2776-09 ####[place] [facility]ORATORYCLIA [id number] [place] [address] [facility] [place] Creatinine and Glomerular filtration rate.predicted panel (S/P/Bld) 112 mL/min/1.73m??? Normal >=60 [facility] Comment on above: Order Comment: Speci men Type: BLOOD SPECIMENOrdering Facility: [facility] Address: [address] [place] [address] Result Comment: Cinthya mated Glomerular Filtration Rate (eGFR) is calculated using the 2020 CKD-EPI creatinine equation. This equation utilizes serum creatinine, sex, and age as parameters. The creatinine assay has traceable calibration to isotope dilution-mass spectrometry. Refer to KDIGO guidelines for clinical interpretation. In patients with unstable renal function, e.g. those with acute kidney injury, the eGFR may not accurately reflect actual GFR. Performed By: #### 2 4362-6, , 2776-09 ####[facility] LABORATORYCLIA [id number] [place] [address] [place] Glucose [Mass/Vol] 80 mg/dL Normal 74-99 [facility] Comment on above: Order Comment: Alex mcgovern Type: BLOOD SPECIMENOrdering Facility: [facility] Address: [address] [place] [address] Result Comment: The [place] Diabetes Association (ADA) provides guidance for cutoff values for fasting glucose and random glucose. The ADA defines fasting as no caloric intake for at least 8 hours. Fasting plasma glucose results between 100 to 125 mg/dL indicate increased risk for diabetes (prediabetes).Fasting plasma glucose results greater than or equal to 126 mg/dL meet the criteria for diagnosis of diabetes. In the absence of unequivocal hyperglycemia, results should be confirmed by repeat testing. In a patient with classic symptoms of hyperglycemia or hyperglycemic crisis, random plasma glucose results greater than or equal to 200 mg/dL meet the criteria for diagnosis of diabetes.Reference: Standards of Medical Care in Diabetes 2016, [place] [employer] Association. Diabetes Care. 2016.39(Suppl 1). Performed By: #### 2 4362-6, , 2776-09 ####[place] [facility]ORATORYCLIA [id number] [place] [address] [place] Potassium [Moles/Vol] 3.5 mmol/L Low 3.7-5.1 [facility] Comment on above: Order Comment: Alex [facility] Type: BLOOD SPECIMENOrdering Facility: [facility] Address: [address] [place] [address] Performed By: #### 2 4362-6, , 2776-09 ####[facility] LABORATORYCLIA [id number] [place] [address] [place] Sodium [Moles/Vol] 135 mmol/L Low 136-144 [facility] Comment on above: Order Comment: Speci men Type: BLOOD SPECIMENOrdering Facility: [facility] Address: [address] [place] [address] Performed By: #### 2 4362-6, 21970-3, 277- ####[facility] LABORATORYCLIA [id number] [place] [address] [place] Urea nitrogen [Mass/Vol] 7 mg/dL Normal 7-21 [facility] Comment on above: Order Comment: Speci men Type: BLOOD SPECIMENOrdering Facility: [facility] Address: [address] [place] [address] Performed By: #### 2 4362-6, , 27703-07 ####[facility]ORATORYCLIA [id number] [place] [address] [place] ALLIED HEALTHon 07-29-2024 ALLIED HEALTH Normal [facility] CBC W Auto Differential pane l (Bld)on 07-29-2024 Basophils (Bld) [#/Vol] 0.06 10*3/uL Normal <0.11 [facility] Comment on above: Order Comment: Speci men Type: BLOOD SPECIMENOrdering Facility: [facility] Address: [address] [place] [address] Performed By: #### 5 7021-8 ####[facility] LABORATORYCLIA [id number] [address] [place] Basophils/100 WBC (Bld) 0.5 % Normal [facility] Comment on above: Order Comment: Speci men Type: BLOOD SPECIMENOrdering Facility: [facility] Address: [address] [place] [address] Performed By: #### 5 7021-8 ####[facility]ORATORYCLIA [id number] [place] [address] [place] Differential cell count method Nom (Bld) Auto Normal [facility] Comment on above: Order Comment: Speci men Type: BLOOD SPECIMENOrdering Facility: [facility] Address: [address] [place] [address] Performed By: #### 5 7021-8 ####[facility] LABORATORYCLIA [id number] [place] [address] [place] Eosinophils (Bld) [#/Vol] 0.06 10*3/uL Normal <0.46 [facility] Comment on above: Order Comment: Speci men Type: BLOOD SPECIMENOrdering Facility: [facility] Address: [address] [place] [address] Performed By: #### 5 7021-8 ####[facility] LABORATORYCLIA [id number] [address] [place] Eosinophils/100 WBC (Bld) 0.5 % Normal [facility] Comment on above: Order Comment: Speci men Type: BLOOD SPECIMENOrdering Facility: [facility] Address: [address] [place] [address] Performed By: #### 5 7021-8 ####[facility]ORATORYCLIA [id number] [address] [place] Erythrocyte distribution width (RBC) [Ratio] 15.3 % High 11.5-15.0 [facility] Comment on above: Order Comment: Speci men Type: BLOOD SPECIMENOrdering Facility: [facility] Address: [address] [place] [address] Performed By: #### 5 7021-8 ####[facility]ORATORYCLIA [id number] [address] [place] Hematocrit (Bld) [Volume fraction] 43.0 % Normal 36.0-46.0 [facility] Comment on above: Order Comment: Speci men Type: BLOOD SPECIMENOrdering Facility: [facility] Address: [address] [place] [address] Performed By: #### 5 7021-8 ####[facility]ORATORYCLIA [id number] [address] [place] Hemoglobin (Bld) [Mass/Vol] 14.3 g/dL Normal 11.5-15.5 [facility] Comment on above: Order Comment: Speci men Type: BLOOD SPECIMENOrdering Facility: [facility] Address: [address] [place] [address] Performed By: #### 5 7021-8 ####[facility]ORATORYCLIA [id number] [address] [place] Immature granulocytes (Bld) [#/Vol] 0.03 10*3/uL Normal <0.10 [facility] Comment on above: Order Comment: Speci men Type: BLOOD SPECIMENOrdering Facility: [facility] Address: [address] [place] [address] Performed By: #### 5 7021-8 ####[facility]ORATORYCLIA [id number] [address] [place] Immature granulocytes/100 WBC (Bld) 0.3 % Normal [facility] Comment on above: Order Comment: Speci men Type: BLOOD SPECIMENOrdering Facility: [facility] Address: [address] [place] [address] Performed By: #### 5 7021-8 ####[facility] LABORATORYCLIA [id number] [place] [address] [place] Lymphocytes (Bld) [#/Vol] 1.87 10*3/uL Normal 1.00-4.00 [facility] Comment on above: Order Comment: Speci men Type: BLOOD SPECIMENOrdering Facility: [facility] Address: [address] [place] [address] Performed By: #### 5 7021-8 ####[facility] LABORATORYCLIA [id number] [address] [place] Lymphocytes/100 WBC (Bld) 17.0 % Normal [facility] Comment on above: Order Comment: Speci men Type: BLOOD SPECIMENOrdering Facility: [facility] Address: [address] [place] [address] Performed By: #### 5 7021-8 ####[facility]ORATORYCLIA [id number] [place] [address] [place] MCH (RBC) [Entitic mass] 25.8 pg Low 26.0-34.0 [facility] Comment on above: Order Comment: Speci men Type: BLOOD SPECIMENOrdering Facility: [facility] Address: [address] [place] [address] Performed By: #### 5 7021-8 ####[facility] LABORATORYCLIA [id number] [place] [address] [place] MCHC (RBC) [Mass/Vol] 33.3 g/dL Normal 30.5-36.0 [facility] Comment on above: Order Comment: Speci men Type: BLOOD SPECIMENOrdering Facility: [facility] Address: [address] [place] [address] Performed By: #### 5 7021-8 ####[facility]ORATORYCLIA [id number] [place] [address] [place] MCV (RBC) [Entitic vol] 77.5 fL Low 80.0-100.0 [facility] Comment on above: Order Comment: Speci men Type: BLOOD SPECIMENOrdering Facility: [facility] Address: [address] [place] [address] Performed By: #### 5 7021-8 ####[facility]ORATORYCLIA [id number] [place] [address] [place] Monocytes (Bld) [#/Vol] 0.97 10*3/uL High <0.87 [facility] Comment on above: Order Comment: Speci men Type: BLOOD SPECIMENOrdering Facility: [facility] Address: [address] [place] [address] Performed By: #### 5 7021-8 ####[facility]ORATORYCLIA [id number] [address] Monocytes/100 WBC (Bld) 8.8 % Normal [facility] Comment on above: Order Comment: Speci men Type: BLOOD SPECIMENOrdering Facility: [facility] Address: [address] [place] [address] Performed By: #### 5 7021-8 ####[facility] LABORATORYCLIA [id number] [place] [address] [place] Neutrophils (Bld) [#/Vol] 8.00 10*3/uL High 1.45-7.50 [facility] Comment on above: Order Comment: Speci men Type: BLOOD SPECIMENOrdering Facility: [facility] Address: [address] [place] [address] Performed By: #### 5 7021-8 ####[facility]ORATORYCLIA [id number] [place] [address] [place] Neutrophils/100 WBC (Bld) 72.9 % Normal [facility] Comment on above: Order Comment: Speci men Type: BLOOD SPECIMENOrdering Facility: [facility] Address: [address] [place] [address] Performed By: #### 5 7021-8 ####[facility]ORATORYCLIA [id number] [place] [address] [place] Nucleated RBC (Bld) [#/Vol] 10*3/uL Normal <0.01 [facility] Comment on above: Order Comment: Speci men Type: BLOOD SPECIMENOrdering Facility: [facility] Address: [address] [place] [address] Performed By: #### 5 7021-8 ####[facility] LABORATORYCLIA [id number] [address] [place] Nucleated RBC/100 WBC (Bld) [Ratio] 0.0 /100 WBC Normal [facility] Comment on above: Order Comment: Speci men Type: BLOOD SPECIMENOrdering Facility: [facility] Address: [address] [place] [address] Performed By: #### 5 7021-8 ####[facility]ORATORYCLIA [id number] [place] [address] [place] Platelet mean volume (Bld) [Entitic vol] 9.2 fL Normal 9.0-12.7 [facility] Comment on above: Order Comment: Speci men Type: BLOOD SPECIMENOrdering Facility: [facility] Address: [address] [place] [address] Performed By: #### 5 7021-8 ####[facility] LABORATORYCLIA [id number] [place] [address] [place] Platelets (Bld) [#/Vol] 339 10*3/uL Normal 150-400 [facility] Comment on above: Order Comment: Speci men Type: BLOOD SPECIMENOrdering Facility: [facility] Address: [address] [place] [address] Performed By: #### 5 7021-8 ####[place] LABORATORYCLIA [id number] [place] [address] [place] RBC (Bld) [#/Vol] 5.55 10*6/uL High 3.90-5.20 [facility] Comment on above: Order Comment: Speci men Type: BLOOD SPECIMENOrdering Facility: [facility] Address: [address] [place] [address] Performed By: #### 5 7021-8 ####[place] [facility]ORATORYCLIA [id number] [address] [facility] WBC (Bld) [#/Vol] 10.99 10*3/uL Normal 3.70-11.00 [facility] Comment on above: Order Comment: Speci men Type: BLOOD SPECIMENOrdering Facility: [facility] Address: [address] [place] [address] Performed By: #### 5 7021-8 ####[place] LABORATORYCLIA [id number] [address] [place] CT ABD/PEL W IVCONon 024 CT ABD/PEL W IVCON Normal [facility] Comprehensive metabolic 2000 panelon 07-29-2024 Albumin [Mass/Vol] 4.5 g/dL Normal 3.9-4.9 [facility] Comment on above: Order Comment: Speci men Type: BLOOD SPECIMENOrdering Facility: [facility] Address: [address] [place] [address] Performed By: #### 2 4323-8, 3039-3, ####[place] [facility]ORATORYCLIA [id number] [place] [address] [place] ALP [Catalytic activity/Vol] 61 U/L Normal 34-123 [facility] Comment on above: Order Comment: Speci men Type: BLOOD SPECIMENOrdering Facility: [facility] Address: [address] [place] [address] Performed By: #### 2 4323-8, 0-3, ####[place] [facility]ORATORYCLIA [id number] [place] [address] [place] ALT [Catalytic activity/Vol] 13 U/L Normal 7-38 [facility] Comment on above: Order Comment: Speci men Type: BLOOD SPECIMENOrdering Facility: [facility] Address: [address] [place] [id number] Performed By: #### 2 4323-8, 3040-3, ####[facility]ORATORYCLIA [id number] [place] [address] [place] Anion gap [Moles/Vol] 22 mmol/L High 8-15 [facility] Comment on above: Order Comment: Speci men Type: BLOOD SPECIMENOrdering Facility: [facility] Address: [address] [place] [address] Performed By: #### 2 4323-8, 3039-3, ####[facility] LABORATORYCLIA [id number] [place], [place] [address] [place] [address] [place] AST [Catalytic activity/Vol] 17 U/L Normal 13-35 [facility] Comment on above: Order Comment: Speci men Type: BLOOD SPECIMENOrdering Facility: [facility] Address: [address] [place] [phone] Performed By: #### 2 4323-8, 0-3, ####[facility]ORATORYCLIA [id number] [place] [address] [place] Bilirubin [Mass/Vol] 0.5 mg/dL Normal 0.2-1.3 [facility] Comment on above: Order Comment: Speci men Type: BLOOD SPECIMENOrdering Facility: [facility] Address: [address] [place] [id number] Performed By: #### 2 4323-8, 3040-3, ####[facility] LABORATORYCLIA [id number] [place] [address] [place] Calcium [Mass/Vol] 9.4 mg/dL Normal 8.5-10.2 [facility] Comment on above: Order Comment: Speci men Type: BLOOD SPECIMENOrdering Facility: [facility] Address: [address] [place] [id number] Performed By: #### 2 4323-8, 3040-3, ####[place] [facility]ORATORYCLIA [id number] [place] [address] [place] Chloride [Moles/Vol] 93 mmol/L Low 98-107 [facility] Comment on above: Order Comment: Alex mcgovern Type: BLOOD SPECIMENOrdering Facility: [facility] Address: [address] [place] [address] Performed By: #### 2 4323-8, 3040-3, ####[place] [facility]ORATORYCLIA [id number] [place] [address] [place] CO2 [Moles/Vol] 18 mmol/L Low 22-30 [facility] Comment on above: Order Comment: Alex mcgovern Type: BLOOD SPECIMENOrdering Facility: [facility] Address: [address] [place] [address] Performed By: #### 2 4323-8, 3040-3, ####[place] [facility]ORATORYCLIA [id number] [place] [id number] [place] Creatinine [Mass/Vol] 0.86 mg/dL Normal 0.58-0.96 [facility] Comment on above: Order Comment: Alex mcgovern Type: BLOOD SPECIMENOrdering Facility: [facility] Address: [address] [place] [address] Performed By: #### 2 4323-8, 3040-3, ####[place] [facility]ORATORYCLIA [id number] [address] Creatinine and Glomerular filtration rate.predicted panel (S/P/Bld) 97 mL/min/1.73m??? Normal >=60 [facility] Comment on above: Order Comment: Alex mcgovern Type: BLOOD SPECIMENOrdering Facility: [facility] Address: [address] [place] [address] Result Comment: Cinthya mated Glomerular Filtration Rate (eGFR) is calculated using the 2020 CKD-EPI creatinine equation. This equation utilizes serum creatinine, sex, and age as parameters. The creatinine assay has traceable calibration to isotope dilution-mass spectrometry. Refer to KDIGO guidelines for clinical interpretation. In patients with unstable renal function, e.g. those with acute kidney injury, the eGFR may not accurately reflect actual GFR. Performed By: #### 2 4323-8, 3040-3, ####[place] [facility]ORATORYCLIA [id number] [place] [address] [place] Glucose [Mass/Vol] 103 mg/dL High 74-99 [facility] Comment on above: Order Comment: Alex mcgovern Type: BLOOD SPECIMENOrdering Facility: [facility] Address: [address] [place], [place] [id number] Result Comment: The [place] Diabetes Association (ADA) provides guidance for cutoff values for fasting glucose and random glucose. The ADA defines fasting as no caloric intake for at least 8 hours. Fasting plasma glucose results between 100 to 125 mg/dL indicate increased risk for diabetes (prediabetes).Fasting plasma glucose results greater than or equal to 126 mg/dL meet the criteria for diagnosis of diabetes. In the absence of unequivocal hyperglycemia, results should be confirmed by repeat testing. In a patient with classic symptoms of hyperglycemia or hyperglycemic crisis, random plasma glucose results greater than or equal to 200 mg/dL meet the criteria for diagnosis of diabetes.Reference: Standards of Medical Care in Diabetes 2016, [place] [employer]. Diabetes Care. 2016.39(Suppl 1). Performed By: #### 2 4323-8, 3, ####[place] [facility]ORATORYCLIA [id number] [place] [id number] [place] Potassium [Moles/Vol] 2.9 mmol/L Low 3.7-5.1 [facility] Comment on above: Order Comment: Alex mcgovern Type: BLOOD SPECIMENOrdering Facility: [facility] Address: [address] [place] [address] Performed By: #### 2 4323-8, 30403, ####[place] [facility]ORATORYCLIA [id number] [place] [address] [place] Protein [Mass/Vol] 8.3 g/dL High 6.3-8.0 [facility] Comment on above: Order Comment: Alex mcgovern Type: BLOOD SPECIMENOrdering Facility: [facility] Address: [address] [place] [address] Performed By: #### 2 4323-8, 3040-3, ####[facility]ORATORYCLIA [id number] [place] [address] [place] Sodium [Moles/Vol] 133 mmol/L Low 136-144 [facility] Comment on above: Order Comment: Speci men Type: BLOOD SPECIMENOrdering Facility: [facility] Address: [address] [place] [address] Performed By: #### 2 4323-8, 3040-3, ####[facility] LABORATORYCLIA [id number] [place] [address] [place] Urea nitrogen [Mass/Vol] 9 mg/dL Normal 7-21 [facility] Comment on above: Order Comment: Speci men Type: BLOOD SPECIMENOrdering Facility: [facility] Address: [address] [place] [address] Performed By: #### 2 4323-8, 3039-3, ####[facility] LABORATORYCLIA [id number] [place] [address] [place] ECG COMPLETEon 07-29-2024 ECG COMPLETE Normal [facility] ED PROV NOTEon 07-29-2024 ED PROV NOTE Normal [facility] ED PROV NOTE Normal [facility] HISTORY PHYSICALon 4 HISTORY PHYSICAL Normal [facility] Lipase SerPl-cCncon 07-29-20 24 Lipase [Catalytic activity/Vol] 216 U/L High 16-61 [facility] Comment on above: Order Comment: Speci men Type: BLOOD SPECIMENOrdering Facility: [facility] Address: [address] [place] [address] Performed By: #### 2 4323-8, 3040-3, ####[facility] LABORATORYCLIA [id number] [place] [address] [place] Magnesium SerPl-mCncon 07-29 Magnesium [Mass/Vol] 2.0 mg/dL Normal 1.7-2.3 [facility] Comment on above: Order Comment: Speci men Type: BLOOD SPECIMENOrdering Facility: [facility] Address: [address] [place] [address] Performed By: #### 2 4323-8, 3040-3, 18761-8 ####[facility] LABORATORYCLIA [id number] [address] Urinalysis complete panel (U )on 07-29-2024 Bacteria LM.HPF (Urine sed) [#/Area] Few Abnormal None Seen [facility] Comment on above: Order Comment: Speci men Type: URINE SPECIMENOrdering Facility: [facility] Address: [address] [place] [address] Performed By: #### 2 4356-8 ####[facility] LABORATORYCLIA [id number] [address] Bilirubin Ql (U) 2+ Abnormal Negative [facility] Comment on above: Order Comment: Speci men Type: URINE SPECIMENOrdering Facility: [facility] Address: [address] [place] [address] Result Comment: Sugg est correlation with clinical findings and serum bilirubin if clinically indicated. Performed By: #### 2 4356-8 ####[facility] LABORATORYCLIA [id number] [address] Clarity (Unsp spec) Clear Normal Clear [facility] Comment on above: Order Comment: Speci men Type: URINE SPECIMENOrdering Facility: [facility] Address: [address] [place] [address] Performed By: #### 2 4356-8 ####[facility] LABORATORYCLIA [id number] [address] [place] Color (U) Yellow Normal Yellow [facility] Comment on above: Order Comment: Speci men Type: URINE SPECIMENOrdering Facility: [facility] Address: [address] [place] [address] Performed By: #### 2 4356-8 ####[facility] LABORATORYCLIA [id number] [address] Epithelial cells LM.HPF (Urine sed) [#/Area] Moderate Normal [facility] Comment on above: Order Comment: Speci men Type: URINE SPECIMENOrdering Facility: [facility] Address: [address] [place] [address] Performed By: #### 2 4356-8 ####[facility] LABORATORYCLIA [id number] [address] Glucose Test strip (U) [Mass/Vol] Negative Normal Negative [facility] Comment on above: Order Comment: Speci men Type: URINE SPECIMENOrdering Facility: [facility] Address: [address] [place] [address] Performed By: #### 2 4356-8 ####[facility] LABORATORYCLIA [id number] [place] [address] [place] Hemoglobin Ql (U) Trace Abnormal Negative [facility] Comment on above: Order Comment: Speci men Type: URINE SPECIMENOrdering Facility: [facility] Address: [address] [place] [address] Performed By: #### 2 4356-8 ####[facility] LABORATORYCLIA [id number] [address] [place] Ketones Ql (U) 3+ Abnormal Negative [facility] Comment on above: Order Comment: Speci men Type: URINE SPECIMENOrdering Facility: [facility] Address: [address] [place] [address] Performed By: #### 2 4356-8 ####[facility] LABORATORYCLIA [id number] [address] Leukocyte esterase Test strip Ql (U) Negative Normal Negative [facility] Comment on above: Order Comment: Speci men Type: URINE SPECIMENOrdering Facility: [facility] Address: [address] [place] [address] Performed By: #### 2 4356-8 ####[facility] LABORATORYCLIA [id number] [address] [place] Nitrite Ql (U) Negative Normal Negative [facility] Comment on above: Order Comment: Speci men Type: URINE SPECIMENOrdering Facility: [facility] Address: [address] [place] [address] Performed By: #### 2 4356-8 ####[facility] LABORATORYCLIA [id number] [address] pH (U) 6.0 [pH] Normal 5.0-8.0 [facility] Comment on above: Order Comment: Speci men Type: URINE SPECIMENOrdering Facility: [facility] Address: [address] [place] [address] Performed By: #### 2 4356-8 ####[facility] LABORATORYCLIA [id number] [address] [place] Protein (U) [Mass/Vol] 3+ Abnormal Negative [facility] Comment on above: Order Comment: Speci men Type: URINE SPECIMENOrdering Facility: [facility] Address: [address] [place] [address] Performed By: #### 2 4356-8 ####[place] LABORATORYCLIA [id number] [place] [address] [place] RBC LM.HPF (Urine sed) [#/Area] 0-3 /HPF Normal 0-3 /HPF [facility] Comment on above: Order Comment: Speci men Type: URINE SPECIMENOrdering Facility: [facility] Address: [address] [place] [address] Performed By: #### 2 4356-8 ####[place] LABORATORYCLIA [id number] [address] Specific gravity (U) [Rel density] >=1.030 High 1.005-1.03 0 [facility] Comment on above: Order Comment: Speci men Type: URINE SPECIMENOrdering Facility: [facility] Address: [address] [place] [address] Performed By: #### 2 4356-8 ####[facility] LABORATORYCLIA [id number] [address] [place] Urobilinogen Ql (U) 0.2 EU/dL Normal 0.2-1.0 EU/dL [facility] Comment on above: Order Comment: Speci men Type: URINE SPECIMENOrdering Facility: [facility] Address: [address] [place] [address] Performed By: #### 2 4356-8 ####[facility] LABORATORYCLIA [id number] [address] WBC LM.HPF (Urine sed) [#/Area] 0-5 /HPF Normal 0-5 /HPF [facility] Comment on above: Order Comment: Speci men Type: URINE SPECIMENOrdering Facility: [facility] Address: [facility] [place] [address] Performed By: #### 2 4356-8 ####[place] LABORATORYCLIA [id number] [address] [place] .Auto Diffon 07-26-2024 Basophil, Absolute 0.1 10 3/mcL Normal 0.0-0.3 [facility] Comment on above: Performed By: #### M DW, ANEU, GFR, CMP, LAC, CBC, LIP, ADIFF #### [facility] [address] [place], [place] [address] Basophils/100 WBC (Bld) 0.6 % Normal 0.0-2.5 A ULTMAN [facility] Comment on above: Performed By: #### M DW, ANEU, GFR, CMP, LAC, CBC, LIP, ADIFF #### [facility] [place] [place], [place] [address] Eosinophil, Absolute 0.3 10 3/mcL Normal 0.0-0.7 AU LTMAN [facility] Comment on above: Performed By: #### M DW, ANEU, GFR, CMP, LAC, CBC, LIP, ADIFF #### [facility] [place] [address] [place], [place] [address] Eosinophils/100 WBC (Bld) 1.6 % Normal 0.0-6.0 [facility] Comment on above: Performed By: #### M DW, ANEU, GFR, CMP, LAC, CBC, LIP, ADIFF #### [facility] [place] [address] [place], [place] [address] Lymphocyte, Absolute 2.2 10 3/mcL Normal 0.9-4.3 AU LTM[facility] Comment on above: Performed By: #### M DW, ANEU, GFR, CMP, LAC, CBC, LIP, ADIFF #### [facility] [address] [place], [place] [address] Lymphocytes/100 WBC (Bld) 13.8 % Low 20.0-40.0 [facility] Comment on above: Performed By: #### M DW, ANEU, GFR, CMP, LAC, CBC, LIP, ADIFF #### [facility] [address] [place], [place] [address] Monocyte, Absolute 1.2 10 3/mcL Normal 0.1-1.4 [facility] Comment on above: Performed By: #### M DW, ANEU, GFR, CMP, LAC, CBC, LIP, ADIFF #### [facility] [place] [address] [place], [place] [address] Monocytes/100 WBC (Bld) 7.4 % Normal 2.0-13.0 A [facility] Comment on above: Performed By: #### M DW, ANEU, GFR, CMP, LAC, CBC, LIP, ADIFF #### [facility] [place] [address] [place], [place] [address] Neutrophils/100 WBC (Bld) 76.6 % High 50.0-75.0 [facility] Comment on above: Performed By: #### M DW, ANEU, GFR, CMP, LAC, CBC, LIP, ADIFF #### [facility] [place] [address] [place], [place] [address] .GFRon 07-26-2024 GFR Non- 70 ml/min/1.73sqm Normal [facility] Comment on above: Result Comment: GFR Population mean for , Non- Americans Ages 20-29 = 116 mL/min/1.73 sq.m. Ages 30-39 = 107 mL/min/1.73 sq.m. Ages 40-49 = 99 mL/min/1.73 sq.m. Ages 50-59 = 93 mL/min/1.73 sq.m. Ages 60-69 = 85 mL/min/1.73 sq.m. Ages 70+ = 75 mL/min/1.73 sq.m. Chronic Kidney Disease: Less than 60 mL/min/1.73 square meters End Stage Renal Disease: Less than 15 mL/min/1.73 square meters Performed By: #### U A, UAMIC, UDRUG #### [facility] [place] [place], [place] [address] GFR 85 ml/min/1.73sqm Normal [facility] Comment on above: Result Comment: GFR Population mean for , Non- Americans Ages 20-29 = 116 mL/min/1.73 sq.m. Ages 30-39 = 107 mL/min/1.73 sq.m. Ages 40-49 = 99 mL/min/1.73 sq.m. Ages 50-59 = 93 mL/min/1.73 sq.m. Ages 60-69 = 85 mL/min/1.73 sq.m. Ages 70+ = 75 mL/min/1.73 sq.m. Chronic Kidney Disease: Less than 60 mL/min/1.73 square meters End Stage Renal Disease: Less than 15 mL/min/1.73 square meters Performed By: #### U A, UAMIC, UDRUG #### [facility] [address] [place] [id number] .MDWon 07-26-2024 Monocyte Distribution Width 16.55 Normal 0.00-20.00 [facility] MASSCHRISTIANE Comment on above: Result Comment: For ED adult patients suspected of sepsis, MDW<=20.0 does not rule out sepsis or risk of sepsis Performed By: #### M DW, ANEU, GFR, CMP, LAC, CBC, LIP, ADIFF #### [facility] [place] [address] [place] [id number] .NEUABSon 07-26-2024 Neutrophil, Absolute 12.2 10 3/mcL High 2.3-8.1 A [facility] Comment on above: Performed By: #### M DW, ANEU, GFR, CMP, LAC, CBC, LIP, ADIFF #### [facility] [place] [address] [place] [phone] CBCon 07-26-2024 Erythrocyte distribution width (RBC) [Ratio] 15.5 % Normal 11.5-15.5 [facility] Comment on above: Performed By: #### M DW, ANEU, GFR, CMP, LAC, CBC, LIP, ADIFF #### [facility] [address] [place], [place] [address] Hematocrit (Bld) [Volume fraction] 42.3 % Normal 34.0-46.0 [facility] Comment on above: Performed By: #### M DW, ANEU, GFR, CMP, LAC, CBC, LIP, ADIFF #### [facility] [place] [address] [place], [place] [address] Hgb 13.8 G/dL Normal 12.0-16.0 [facility] Comment on above: Performed By: #### M DW, ANEU, GFR, CMP, LAC, CBC, LIP, ADIFF #### [facility] [place] [address] [place], [place] [address] MCH (RBC) [Entitic mass] 25.7 pg Low 27.0-33.0 [facility] Comment on above: Performed By: #### M DW, ANEU, GFR, CMP, LAC, CBC, LIP, ADIFF #### [facility] [place] [address] [place], [place] [address] MCHC 32.7 G/dL Normal 32.0-36.0 [facility] Comment on above: Performed By: #### M DW, ANEU, GFR, CMP, LAC, CBC, LIP, ADIFF #### [facility] [address] [place], [place] [address] MCV (RBC) [Entitic vol] 78.7 fL Low 80.0-99.0 A [facility] Comment on above: Performed By: #### M DW, ANEU, GFR, CMP, LAC, CBC, LIP, ADIFF #### [facility] [address] [place], [place] [address] Platelet 342 10 3/mcL Normal 150-450 [facility] Comment on above: Performed By: #### M DW, ANEU, GFR, CMP, LAC, CBC, LIP, ADIFF #### [facility] [place] [address] [place], [place] [address] Platelet mean volume (Bld) [Entitic vol] 7.0 fL Normal 6.6-10.5 [facility] Comment on above: Performed By: #### M DW, ANEU, GFR, CMP, LAC, CBC, LIP, ADIFF #### [facility] [address] [place], [place] [address] RBC 5.38 10 6/mcL High 4.10-5.30 [facility] Comment on above: Performed By: #### M DW, ANEU, GFR, CMP, LAC, CBC, LIP, ADIFF #### [facility] [address] [place], [place] [address] WBC 15.9 10 3/mcL High 4.5-10.8 [facility]LL[facility] Comment on above: Performed By: #### M DW, ANEU, GFR, CMP, LAC, CBC, LIP, ADIFF #### [facility] [address] [place], [place] [address] CMPon 07-26-2024 Albumin Level 4.4 G/dL Normal 3.5-5.0 [facility] Comment on above: Performed By: #### M DW, ANEU, GFR, CMP, LAC, CBC, LIP, ADIFF #### [facility] [address] [place], [place] [address] Albumin/Globulin [Mass ratio] 1.1 {ratio} Normal 1.1-2.5 [facility] Comment on above: Performed By: #### M DW, ANEU, GFR, CMP, LAC, CBC, LIP, ADIFF #### [facility] [address] [place], [place] [address] ALP [Catalytic activity/Vol] 62 U/L Normal 40-135 [facility] Comment on above: Performed By: #### M DW, ANEU, GFR, CMP, LAC, CBC, LIP, ADIFF #### [facility] [address] [place], [place] [address] ALT [Catalytic activity/Vol] 19 U/L Normal 14-59 [facility] Comment on above: Performed By: #### M DW, ANEU, GFR, CMP, LAC, CBC, LIP, ADIFF #### [facility] [address] [place], [place] [address] AST [Catalytic activity/Vol] 9 U/L Low 10-40 [facility] Comment on above: Performed By: #### M DW, ANEU, GFR, CMP, LAC, CBC, LIP, ADIFF #### [facility] [address] [place], [place] [address] Bili Total 0.7 mg/dL Normal 0.2-1.0 [facility] Comment on above: Result Comment: Use of this assay is not recommended for patients undergoing treatment with eltrombopag due to the potential for falsely elevated results. Performed By: #### M DW, ANEU, GFR, CMP, LAC, CBC, LIP, ADIFF #### [facility] [address] [place], [place] [address] BUN/Creatinine Ratio 11 ratio Normal 7-27 [facility] Comment on above: Performed By: #### M DW, ANEU, GFR, CMP, LAC, CBC, LIP, ADIFF #### [facility] [address] [place], [place] [address] Calcium [Mass/Vol] 9.5 mg/dL Normal 8.4-10.2 AULTMA N [facility] Comment on above: Performed By: #### M DW, ANEU, GFR, CMP, LAC, CBC, LIP, ADIFF #### [facility] [address] [place], [place] [address] Chloride [Moles/Vol] 97 mmol/L Low 98-107 [place] [facility] Comment on above: Performed By: #### M DW, ANEU, GFR, CMP, LAC, CBC, LIP, ADIFF #### [facility] [address] [place], [place] [address] CO2 [Moles/Vol] 23 mmol/L Normal 22-29 REN[facility] MAS[facility]LL[facility] Comment on above: Performed By: #### M DW, ANEU, GFR, CMP, LAC, CBC, LIP, ADIFF #### [facility] [address] [place], [place] [address] Creatinine [Mass/Vol] 0.98 mg/dL Normal 0.55-1.02 [facility] Comment on above: Result Comment: Test ing performed on Siemens Dimension EXL analyzer using a modified kinetic Ale technique. Performed By: #### M DW, ANEU, GFR, CMP, LAC, CBC, LIP, ADIFF #### [facility] [place] [address] [place], [place] [address] Electrolyte Balance 18.0 mEq/L High 4.0-15.0 AULTM AN [facility] Comment on above: Performed By: #### M DW, ANEU, GFR, CMP, LAC, CBC, LIP, ADIFF #### [facility] [place] [address] [place], [place] [address] Globulin 3.9 G/dL Normal R[facility] Comment on above: Performed By: #### M DW, ANEU, GFR, CMP, LAC, CBC, LIP, ADIFF #### [facility] [address] [place], [place] [address] Glucose [Mass/Vol] 84 mg/dL Normal 70-105 AULTMA N [facility] Comment on above: Performed By: #### M DW, ANEU, GFR, CMP, LAC, CBC, LIP, ADIFF #### [facility] [address] [place], [place] [address] Potassium [Moles/Vol] 3.1 mmol/L Low 3.5-5.1 AUL TMAN [facility]LLON Comment on above: Performed By: #### M DW, ANEU, GFR, CMP, LAC, CBC, LIP, ADIFF #### [facility] [place] [address] [place], [place] [address] Sodium [Moles/Vol] 138 mmol/L Normal 136-145 [facility] N [facility] Comment on above: Performed By: #### M DW, ANEU, GFR, CMP, LAC, CBC, LIP, ADIFF #### [facility] [place] [address] [place], [place] [address] Total Protein 8.3 G/dL High 6.4-8.2 RENNY [facility] Comment on above: Performed By: #### M DW, ANEU, GFR, CMP, LAC, CBC, LIP, ADIFF #### [facility] [place] [address] [place], [place] [address] Urea nitrogen [Mass/Vol] 11 mg/dL Normal 7-18 [facility] Comment on above: Performed By: #### M DW, ANEU, GFR, CMP, LAC, CBC, LIP, ADIFF #### [facility] [place] [address] [place], [place] [address] CT ABDOMEN/PELVIS W/O CONTRA Dinesh 07-26-2024 CT ABDOMEN/PELVIS W/O CONTRAST ORIGINAL EXAMINATION: CT OF THE ABDOMEN AND PELVIS WITHOUT CONTRAST 07/26/2024 8:08 pm TECHNIQUE: CT of the abdomen and pelvis was performed without the administration of intravenous contrast. Multiplanar reformatted images are provided for review. Automated exposure control, iterative reconstruction, and/or weight based adjustment of the mA/kV was utilized to reduce the radiation dose to as low as reasonably achievable. COMPARISON: CT abdomen-pelvis 07/19/2024 HISTORY: ORDERING SYSTEM PROVIDED HISTORY: Reason for Exam: low abd pain, n/v/c+, h/o uterine ca pain FINDINGS: Lower Chest: Visualized lower thorax demonstrates no consolidation or pleural effusion. Organs: The liver demonstrates no biliary duct dilatation or gross mass. The gallbladder demonstrates no calcified gallstones or gross wall thickening. The pancreas demonstrates no gross mass, gross inflammatory process, or ductal dilatation. Spleen is normal in size. Adrenal glands are normal in size. The kidneys demonstrate no hydronephrosis or renal calculi. Ureters are normal in caliber bilaterally. GI/Bowel: Stomach and duodenal sweep demonstrate no acute abnormality. Small bowel and colon are normal in caliber. Appendix is normal in caliber without gross wall thickening or inflammatory change. There are mildly enlarged mesenteric nodes again seen, nonspecific, which may be reactive. There is a small fat-containing periumbilical hernia. There is no ascites. Pelvis: Urinary bladder is within normal limits. Prior hysterectomy noted. Bilateral ovaries are again seen and unchanged size from prior study. Peritoneum/Retroperitoneu m: Aorta is normal in caliber without acute abnormality. Bones/Soft Tissues: Osseous structures are intact. IMPRESSION: 1. No evidence of obstructive uropathy. 2. There is no bowel obstruction or adynamic ileus. There is no evidence of appendicitis. Interpreted by: Archie Aguiar Preliminary Report By: Archie Aguiar Electronically signed By Archie Aguiar Dictated Date: 07/26/2024 8:51:31 PM Prelim Date: 07/26/2024 9:01:17 PM Sign Date: 07/26/2024 9:01:17 PM Ordering Provider: PREM MATTHEWS Normal RENNY MASSILLON LACon 07-26-2024 Lactic Acid Lvl 0.8 mmol/L Normal 0.4-2.0 RENNY [facility] Comment on above: Performed By: #### U A, UAMIC, UDRUG #### [facility] [place] [address] [place] [phone] LIPon 07-26-2024 Lipase Level 200 U/L High 16-77 RENNY [facility]LL[facility] Comment on above: Performed By: #### M DW, ANEU, GFR, CMP, LAC, CBC, LIP, ADIFF #### [facility] [place] [address] [place] [phone] UAon 07-26-2024 Color (U) Dark yellow Normal RENNY [facility] Comment on above: Performed By: #### U A, UAMIC, UDRUG #### [facility] [place] [address] [place] [address] Glucose (U) [Mass/Vol] Negative Normal Negative AU LTMAN [facility] Comment on above: Performed By: #### U A, UAMIC, UDRUG #### [facility] [place] [address] [place] [phone] Ketones Ql (U) >=160 Abnormal Neg-Trace RENNY [facility]LLON Comment on above: Performed By: #### U A, UAMIC, UDRUG #### [facility] [place] [address] [place] [phone] UA Appear Cloudy Abnormal RENNY [facility] Comment on above: Performed By: #### U A, UAMIC, UDRUG #### [facility] [place] [address] [place] [phone] UA Bili Moderate Abnormal Neg-Trace RENNY [facility]LL[facility] Comment on above: Performed By: #### U A, UAMIC, UDRUG #### [facility] [place] [address] [place] [phone] UA Blood Trace Normal Neg-Trace RENNY [facility] Comment on above: Performed By: #### U A, UAMIC, UDRUG #### [facility] [place] [address] [place] [address] UA Leuk Est Negative Normal Negative RENNY [facility] Comment on above: Performed By: #### U A, UAMIC, UDRUG #### [facility] [place] [address] [place] [address] UA Nitrite Negative Normal Negative RENNY [facility] Comment on above: Performed By: #### U A, UAMIC, UDRUG #### [facility] [place] [address] [place] [address] UA pH 6.0 Normal 5.0 - 8.0 RENNY [facility]LL[facility] Comment on above: Performed By: #### U A, UAMIC, UDRUG #### [facility] [place] [address] [place] [address] UA Protein >=300 Abnormal Negative RENNY [facility] Comment on above: Performed By: #### U A, UAMIC, UDRUG #### [facility] [place] [address] [place] [address] UA Spec Grav >=1.030 Abnormal RENNY [facility] Comment on above: Performed By: #### U A, UAMIC, UDRUG #### [facility] [place] [address] [place] [address] UA Specimen Type Clean Catch Normal RENNY [facility]LL[facility] Comment on above: Performed By: #### U A, UAMIC, UDRUG #### [facility] [place] [address] [place] [address] UA Urobilinogen 0.2 E.U./dL Normal RENNY [facility]LL[facility] Comment on above: Performed By: #### U A, UAMIC, UDRUG #### [facility] [place] [address] [place] [address] UAMICon 07-26-2024 UA Fine Granular Casts Rare Normal AU LTMAN MASSILLON Comment on above: Performed By: #### U A, UAMIC, UDRUG #### [facility] [place] [address] [place] [address] UA Amorphus Trace Normal RENNY MAS[facility]LL[facility] Comment on above: Performed By: #### U A, UAMIC, UDRUG #### [facility] [place] [address] [place] [address] UA Bacteria 1+ /hpf Abnormal Negative RENNY [facility]LLON Comment on above: Performed By: #### U A, UAMIC, UDRUG #### [facility] [place] [address] [place] [address] UA Mucous Trace Normal RENNY [facility] Comment on above: Performed By: #### U A, UAMIC, UDRUG #### [facility] [place] [address] [place] [address] UA RBC 0-2 Normal 0-2 RENNY [facility] Comment on above: Performed By: #### U A, UAMIC, UDRUG #### [facility] [place] [address] [place] [address] UA Squam Epithelial 0-2 Normal 0-20 AULTM AN [facility] Comment on above: Performed By: #### U A, UAMIC, UDRUG #### [facility] [place] [address] [place] [address] UA WBC 0-2 Normal 0-5 RENNY MAS[facility]LLON Comment on above: Performed By: #### U A, UAMIC, UDRUG #### [facility] [place] [address] [place] [address] UDRUGon 07-26-2024 Amphetamine (u) Negative Normal Negative RENNY [facility]LL[facility] Comment on above: Performed By: #### U A, UAMIC, UDRUG #### [facility] [place] [address] [place] [address] Barbiturate (u) Negative Normal Negative RENNY [facility]LL[facility] Comment on above: Performed By: #### U A, UAMIC, UDRUG #### [facility] [place] [address] [place] [address] Benzodiazepine (u) Positive Abnormal Negative AULTMA N [facility] Comment on above: Performed By: #### U A, UAMIC, UDRUG #### [facility] [place] [address] [place] [address] Cannabinoid (u) Positive Abnormal Negative RENNY MASSILLON Comment on above: Performed By: #### U A, UAMIC, UDRUG #### [facility] [place] [address] [place], [place] [address] Cocaine Ql (U) Negative Normal Negative RENNY MASSILLON Comment on above: Performed By: #### U A, UAMIC, UDRUG #### [facility] [place] [address] [place], [place] [address] Methadone Ql (U) Negative Normal Negative RENNY MASSILLON Comment on above: Performed By: #### U A, UAMIC, UDRUG #### [facility] [place] [address] [place] [phone] Opiate (u) Negative Normal Negative RENNY MASSILLON Comment on above: Performed By: #### U A, UAMIC, UDRUG #### [facility] [place] [address] [place] [phone] PCP (u) Negative Normal Negative RENNY MASSILLON Comment on above: Performed By: #### U A, UAMIC, UDRUG #### [facility] [place] [address] [place] [phone] Urine Drugs screened: See Below Normal AUL TMAN MASSILLON Comment on above: Result Comment: This drug screen is a presumptive screening only. No confirmation will be performed unless requested. Drugs screened include: Threshold Amphetamines/Methamphetamines 1,000 ng/mL Barbiturates 200 ng/mL Benzodiazepine metabolites 200 ng/mL Cannabinoids (THC metabolites) 50 ng/mL Cocaine 300 ng/mL Opiates 300 ng/mL Methadone 300 ng/mL Phencyclidine (PCP) 25 ng/mL Testing has been performed FOR MEDICAL PURPOSES ONLY. Performed By: #### U A, UAMIC, UDRUG #### [facility] [address] [place], [place] [address] Basic Metabolic Profile (BMP )on 07-25-2024 BUN/CRE 8.6 RATIO Low 10-20 [facility] Comment on above: Performed By: #### L 500.2500, L100.0100 ####[facility] [id number] [place], [address] CA,Total 9.1 mg/dL Normal 8.5-10.1 [facility] Comment on above: Performed By: #### L 500.2500, L100.0100 ####[facility] [id number] [place], [address] Chloride [Moles/Vol] 103 mmol/L Normal 98-107 [facility] Comment on above: Performed By: #### L 500.2500, L100.0100 ####[facility] [address] [place], [address] CO2 [Moles/Vol] 23.0 mmol/L Normal 21.0-32.0 [facility] Comment on above: Performed By: #### L 500.2500, L100.0100 ####[facility] [address] [place], [address] Creatinine [Mass/Vol] 0.82 mg/dL Normal 0.55-1.02 [facility] Comment on above: Result Comment: The validity of the calculated GFR GFRAA in patients over 70 years has not been determined. Clinical correlation is essential. Performed By: #### L 500.2500, L100.0100 ####[facility] [address] [place], [address] ECRCL 134.63 ml/min Normal [facility] Comment on above: Performed By: #### L 500.2500, L100.0100 ####[facility] [address] [place], [address] EST GFR - AA 110 mL/min Normal >60 [facility] Comment on above: Result Comment: Afri can [place] GFR Calc Performed By: #### L 500.2500, L100.0100 ####[facility] [address] [place], [address] GAP 11 Normal 5-15 [facility] Comment on above: Performed By: #### L 500.2500, L100.0100 ####[facility] [address] [place], [address] GFR/1.73 sq M.predicted among non-blacks MDRD (S/P/Bld) [Vol rate/Area] 91 mL/min/{1.73_m2} Normal >60 [facility] Comment on above: Result Comment: Non- GFR Calc Performed By: #### L 500.2500, L100.0100 ####[facility] [address] [place], [address] Glucose [Mass/Vol] 81 mg/dL Normal 74-106 [facility] Comment on above: Performed By: #### L 500.2500, L100.0100 ####[facility] [address] [place], [address] Potassium [Moles/Vol] 3.3 mmol/L Low 3.5-5.1 [facility] Comment on above: Performed By: #### L 500.2500, L100.0100 ####[facility] [address] [place], [address] Sodium [Moles/Vol] 136 mmol/L Normal 136-145 [facility] Comment on above: Performed By: #### L 500.2500, L100.0100 ####[facility] [address] [place], [address] Urea nitrogen [Mass/Vol] 7 mg/dL Normal 7-18 [facility] Comment on above: Performed By: #### L 500.2500, L100.0100 ####[facility] [address] [place], [address] CBC W/Diff, Automatedon 11- Absolute Lymph 1.89 X10 3/uL Normal 0.83-4.51 [facility] Comment on above: Performed By: #### L 500.2500, L100.0100 ####[facility] [address] [place], [address] Absolute Neut 8.7 X10 3/uL High 2.0-7.7 [facility] Comment on above: Performed By: #### L 500.2500, L100.0100 ####[facility] [address] [place], [address] Basophils/100 WBC (Bld) 0.3 % Normal 0-1 [facility] Comment on above: Performed By: #### L 500.2500, L100.0100 ####[facility] [address] [place], [address] Eosinophils/100 WBC (Bld) 2.2 % Normal 0-5 [facility] Comment on above: Performed By: #### L 500.2500, L100.0100 ####[facility] [address] [place], [address] Erythrocyte distribution width (RBC) [Ratio] 15.0 % High 11.6-14.6 [facility] Comment on above: Performed By: #### L 500.2500, L100.0100 ####[facility] [address] [place], [address] Hematocrit (Bld) [Volume fraction] 40.8 % Normal 37-47 [facility] Comment on above: Performed By: #### L 500.2500, L100.0100 ####[facility] [address] [place], [address] Hemoglobin (Bld) [Mass/Vol] 12.8 g/dL Normal 12.0-15.0 [facility] Comment on above: Performed By: #### L 500.2500, L100.0100 ####[facility] [address] [place], [address] IG% 0.600 Normal 0.0-0.9 [facility] Comment on above: Result Comment: IG% - Immature Granulocytes (promyelocytes, myelocytes and metamyelocytes) > 1% indicates that a LEFT SHIFT is Present. Performed By: #### L 500.2500, L100.0100 ####[facility] [address] [place], [address] Lymphocytes/100 WBC (Bld) 16.2 % Low 19-41 [facility] Comment on above: Performed By: #### L 500.2500, L100.0100 ####[facility] [address] [place], [address] MCH (RBC) [Entitic mass] 25.2 pg Low 27.0-32.0 [facility] Comment on above: Performed By: #### L 500.2500, L100.0100 ####[facility] [address] [place], [address] MCHC (RBC) [Mass/Vol] 31.4 g/dL Low 32-36 [facility] Comment on above: Performed By: #### L 500.2500, L100.0100 ####[facility] [address] [place], [address] MCV (RBC) [Entitic vol] 80.5 fL Low 81-99 [facility] Comment on above: Performed By: #### L 500.2500, L100.0100 ####[facility] [address] [place], [address] Monocytes/100 WBC (Bld) 6.4 % Normal 0-10 [facility] Comment on above: Performed By: #### L 500.2500, L100.0100 ####[facility] [address] [place], [address] Neutrophils/100 WBC (Bld) 74.3 % High 47-70 [facility] Comment on above: Performed By: #### L 500.2500, L100.0100 ####[facility] [address] [place], [address] Nucleated RBC (Bld) [#/Vol] 0 10*3/uL Normal 0-5 [facility] Comment on above: Performed By: #### L 500.2500, L100.0100 ####[facility] [address] [place], [address] Platelet mean volume (Bld) [Entitic vol] 8.9 fL Normal 6.2-12.0 [facility] Comment on above: Performed By: #### L 500.2500, L100.0100 ####[facility] [address] [place], [address] Platelets (Bld) [#/Vol] 315 10*3/uL Normal 150-450 [facility] Comment on above: Performed By: #### L 500.2500, L100.0100 ####[facility] [address] [place], [address] RBC (Bld) [#/Vol] 5.07 10*6/uL Normal 4.2-5.4 [facility] Comment on above: Performed By: #### L 500.2500, L100.0100 ####[facility] [address] [place], [address] RDW SD 42.7 fl Normal 35.1-43.9 [facility] Comment on above: Performed By: #### L 500.2500, L100.0100 ####[facility] [address] [place], [address] WBC (Bld) [#/Vol] 11.7 10*3/uL High 4.4-11.0 [facility] Comment on above: Performed By: #### L 500.2500, L100.0100 ####[facility] [address] [place], [address] Discharge Instructionon 07-08 Discharge Instruction [facility] Medical Records Department [address] [place] [address] Instructions for Home/Discharge Instructions 07/25/24 1028 MR#: [id number] Acct: [id number] Name: ADDIS TORRES Rep #: [id number] : 2000 24 From: Gregory Cash MD PCP: Dr. Tj Willams MD Status:ADM JAQUI Discharge Instructions Diet Discharge Diet: No restrictions, Light diet - advance as tolerated and Soft diet Activity Discharge Activity: Return to Normal Activity Weight Bearing Status: Weight bearing as tolerated Dressing / Incision Call your doctor if you observe: Fever of 101 or Higher, Coldness, Increased Pain, Numbness or Tingling, Change in Color, Inability to urinate, Inability to have a bowel movement, Shortness of breath, Dizziness, Fainting spells, Swelling in the ankles, Chest pain, Prolonged hiccupping, Increased palpitations (irregular heartbeat) and Calf discomfort Follow Up Care When: IN 2 WEEKS Test Results: Test results from this visit will be discussed in further detail at your follow-up appointment, if applicable. Discharge Plan Admission Admit Date/Time: 07/23/24 14:00 Primary Reason for Your Visit: Diffuse nonspecific functional abdominal pain. Attending Provider: Gregory Cash Primary Care Provider: Tj Willams Consulting Providers: Cameron Dawkins Discharge Orders/Prescriptions Prescriptions: Continued ondansetron 4 mg tablet,disintegrating 4 mg PO Q6H PRN (Reason: nausea and vomiting) Qty: 90 2RF hyoscyamine sulfate 0.125 mg tablet,disintegrating 0.125 mg PO TID PRN (Reason: dyspepsia) Qty: 90 0RF alprazolam 0.5 mg tablet 0.5 mg PO TID PRN (Reason: abdominal pain) Qty: 90 0RF scopolamine base 1 mg over 3 days patch 3 day 1 patch transdermal Q72H Qty: 4 0RF acetaminophen 500 mg capsule 1,000 mg PO Q8H PRN PRN (Reason: pain) Qty: 60 0RF metoclopramide HCl 5 mg tablet 5 mg PO 4X/DAY PRN (Reason: nausea/vomiting) dicyclomine 20 mg tablet 20 mg PO 4X/DAY PRN (Reason: abdominal pain) amitriptyline 10 mg tablet 10 mg PO QHS Qty: 30 5RF pantoprazole 40 mg tablet,delayed release (DR/EC) 40 mg PO BID Qty: 60 5RF gabapentin 100 mg capsule 200 mg PO TID Qty: 180 2RF sucralfate 100 mg/mL suspension 10 ml PO QAC Qty: 414 0RF Referrals / Follow Up: Tj Willams MD [Primary Care Provider] - Within 1 Week FriendDO Corine [Med Staff - Active Staff] - Within 1 Month Disposition Disposition (needs filled in before D/C Order can be placed): Home, Self Care 07/25/24 1205 Gregory Cash MD CC: Dr. Tj Willams MD; Dr. Cameron Dawkins MD Signed Normal [facility] Urine Cultureon 07-25-2024 URC Below infection leve l. Mixed Gram Pos Gram Neg Org [place] Count 1000-10,000 MIXC Mixed contaminants. Submit a new specimen if indicated. Normal [facility] Comment on above: Performed By: #### M 100.2200 ####[facility] [address] [place], [address] CBC W/Diff, Automatedon 07-08 Absolute Lymph 1.62 X10 3/uL Normal 0.83-4.51 [facility] Comment on above: Performed By: #### L 100.0100, L500.4050 ####[facility] [address] [place], [address] Absolute Neut 10.0 X10 3/uL High 2.0-7.7 [facility] Comment on above: Performed By: #### L 100.0100, L500.4050 ####[facility] [address] [place], [address] Basophils/100 WBC (Bld) 0.5 % Normal 0-1 [facility] Comment on above: Performed By: #### L 100.0100, L500.4050 ####[facility] [address] [place], [address] Eosinophils/100 WBC (Bld) 2.2 % Normal 0-5 [facility] Comment on above: Performed By: #### L 100.0100, L500.4050 ####[facility] [address] [place], [address] Erythrocyte distribution width (RBC) [Ratio] 14.9 % High 11.6-14.6 [facility] Comment on above: Performed By: #### L 100.0100, L500.4050 ####[facility] [address] [place], [address] Hematocrit (Bld) [Volume fraction] 35.5 % Low 37-47 [facility] Comment on above: Performed By: #### L 100.0100, L500.4050 ####[facility] [address] [place], [address] Hemoglobin (Bld) [Mass/Vol] 11.3 g/dL Low 12.0-15.0 [facility] Comment on above: Performed By: #### L 100.0100, L500.4050 ####[facility] [address] [place], [address] IG% 0.600 Normal 0.0-0.9 [facility] Comment on above: Result Comment: IG% - Immature Granulocytes (promyelocytes, myelocytes and metamyelocytes) > 1% indicates that a LEFT SHIFT is Present. Performed By: #### L 100.0100, L500.4050 ####[facility] [address] [place], [address] Lymphocytes/100 WBC (Bld) 12.6 % Low 19-41 [facility] Comment on above: Performed By: #### L 100.0100, L500.4050 ####[facility] [address] [place], [address] MCH (RBC) [Entitic mass] 25.7 pg Low 27.0-32.0 [facility] Comment on above: Performed By: #### L 100.0100, L500.4050 ####[facility] [address] [place], [address] MCHC (RBC) [Mass/Vol] 31.8 g/dL Low 32-36 [facility] Comment on above: Performed By: #### L 100.0100, L500.4050 ####[facility] [address] [place], [address] MCV (RBC) [Entitic vol] 80.7 fL Low 81-99 [facility] Comment on above: Performed By: #### L 100.0100, L500.4050 ####[facility] [address] [place], [address] Monocytes/100 WBC (Bld) 6.5 % Normal 0-10 [facility] Comment on above: Performed By: #### L 100.0100, L500.4050 ####[facility] [address] [place], [address] Neutrophils/100 WBC (Bld) 77.6 % High 47-70 [facility] Comment on above: Performed By: #### L 100.0100, L500.4050 ####[facility] [address] [place], [address] Nucleated RBC (Bld) [#/Vol] 0 10*3/uL Normal 0-5 [facility] Comment on above: Performed By: #### L 100.0100, L500.4050 ####[facility] [address] [place], [address] Platelet mean volume (Bld) [Entitic vol] 8.8 fL Normal 6.2-12.0 [facility] Comment on above: Performed By: #### L 100.0100, L500.4050 ####[facility] [address] [place], [address] Platelets (Bld) [#/Vol] 294 10*3/uL Normal 150-450 [facility] Comment on above: Performed By: #### L 100.0100, L500.4050 ####[facility] [address] [place], [address] RBC (Bld) [#/Vol] 4.40 10*6/uL Normal 4.2-5.4 [facility] Comment on above: Performed By: #### L 100.0100, L500.4050 ####[facility] [address] [place], [address] RDW SD 42.4 fl Normal 35.1-43.9 [facility] Comment on above: Performed By: #### L 100.0100, L500.4050 ####[facility] [address] [place], [address] WBC (Bld) [#/Vol] 12.8 10*3/uL High 4.4-11.0 [facility] Comment on above: Performed By: #### L 100.0100, L500.4050 ####[facility] [address] [place], [address] Comprehensive Metabolic Prof [facility] 07-24-2024 Albumin [Mass/Vol] 3.6 g/dL Normal 3.2-5.0 [facility] Comment on above: Performed By: #### L 100.0100, L500.4050 ####[facility] [address] [place], [address] Albumin/Globulin [Mass ratio] 1.1 {ratio} Normal 0.9-2.4 [facility] Comment on above: Performed By: #### L 100.0100, L500.4050 ####[facility] [address] [place], [address] ALK P 45 U/L Normal 45-117 [facility] Comment on above: Performed By: #### L 100.0100, L500.4050 ####[facility] [address] [place], [address] ALT [Catalytic activity/Vol] 18 U/L Normal 13-56 [facility] Comment on above: Performed By: #### L 100.0100, L500.4050 ####[facility] [address] [place], [address] AST [Catalytic activity/Vol] 15 U/L Normal 15-37 [facility] Comment on above: Performed By: #### L 100.0100, L500.4050 ####[facility] [address] [place], [address] Bilirubin [Mass/Vol] 0.50 mg/dL Normal 0.20-1.00 [facility] Comment on above: Result Comment: For patients on eltrombopag therapy, use of Dimension [place] TBIL is not recommended. Performed By: #### L 100.0100, L500.4050 ####[facility] [address] [place], [address] BUN/CRE 13.9 RATIO Normal 10-20 [facility] Comment on above: Performed By: #### L 100.0100, L500.4050 ####[facility] [address] [place], [address] CA,Total 8.4 mg/dL Low 8.5-10.1 [facility] Comment on above: Performed By: #### L 100.0100, L500.4050 ####[facility] [address] [place], [address] Chloride [Moles/Vol] 107 mmol/L Normal 98-107 [facility] Comment on above: Performed By: #### L 100.0100, L500.4050 ####[facility] [address] [place], [address] CO2 [Moles/Vol] 21.0 mmol/L Normal 21.0-32.0 [facility] Comment on above: Performed By: #### L 100.0100, L500.4050 ####[facility] [address] [place], [address] Creatinine [Mass/Vol] 0.65 mg/dL Normal 0.55-1.02 [facility] Comment on above: Result Comment: The validity of the calculated GFR GFRAA in patients over 70 years has not been determined. Clinical correlation is essential. Performed By: #### L 100.0100, L500.4050 ####[facility] [address] [place], [address] ECRCL 169.84 ml/min Normal [facility] Comment on above: Performed By: #### L 100.0100, L500.4050 ####[facility] [address] [place], [address] EST GFR - AA 144 mL/min Normal >60 [facility] Comment on above: Result Comment: Afri can [place] GFR Calc Performed By: #### L 100.0100, L500.4050 ####[facility] [address] [place], [address] GAP 10 Normal 5-15 [facility] Comment on above: Performed By: #### L 100.0100, L500.4050 ####[facility] [address] [place], [address] GFR/1.73 sq M.predicted among non-blacks MDRD (S/P/Bld) [Vol rate/Area] 119 mL/min/{1.73_m2} Normal >60 [facility] Comment on above: Result Comment: Non- GFR Calc Performed By: #### L 100.0100, L500.4050 ####[facility] [address] [place], [address] Globulin (S) [Mass/Vol] 3.4 g/dL Normal 2.2-4.2 [facility] Comment on above: Performed By: #### L 100.0100, L500.4050 ####[facility] [address] [place], [address] Glucose [Mass/Vol] 87 mg/dL Normal 74-106 [facility] Comment on above: Performed By: #### L 100.0100, L500.4050 ####[facility] [address] [place], [address] Potassium [Moles/Vol] 3.6 mmol/L Normal 3.5-5.1 [facility] Comment on above: Performed By: #### L 100.0100, L500.4050 ####[facility] [address] [place], [address] Sodium [Moles/Vol] 138 mmol/L Normal 136-145 [facility] Comment on above: Performed By: #### L 100.0100, L500.4050 ####[facility] [address] [place], [address] T PROT 7.0 g/dL Normal 6.4-8.2 [facility] Comment on above: Performed By: #### L 100.0100, L500.4050 ####[facility] [address] [place], [address] Urea nitrogen [Mass/Vol] 9 mg/dL Normal 7-18 [facility] Comment on above: Performed By: #### L 100.0100, L500.4050 ####[facility] [address] [place], [address] 12 Lead EKGon 07-23-2024 12 Lead EKG [facility] [address] [place] [address] 12 Lead EKG 07/23/24 1107 MR#: [id number] Acct: [id number] Name: ADDIS TORRES Rep #: [id number] : 2000 24 From: Kye Desai MD Attending Dr: Dr. Gregory Cash MD Status: ADM JAQUI Ordering Dr: Jovanni John DO Date: 07/23/24 Location: OR3 Sex: F C Admitted: 07/23/24 Test Reason : N/V Blood Pressure : */* mmHG Vent. Rate : 84 BPM Atrial Rate : 84 BPM P-R Int : 138 ms QRS Dur : 92 ms QT Int : 356 ms P-R-T Axes : 38 68 47 degrees QTcB Int : 420 ms Normal sinus rhythm with sinus arrhythmia Normal ECG Confirmed by RYAN MARTINEZ, KYE ([id number]), staff editor GAGANDEEP CHU ([id number]) on 07/25/2024 8:11:38 AM Referred By: Confirmed By: KYE DESAI MD 07/25/24 0811 Date Kye Desai MD CC: Dr. Tj Willams MD; Dr. Jovanni John DO; Dr. Gregory Cash MD Signed Normal [facility] Basic Metabolic Profile (BMP )on 07-23-2024 BUN/CRE 9.8 RATIO Low 10-20 [facility] Comment on above: Performed By: #### L 503.6005, L500.3400, L100.0100, L501.2450, L500.2500 ####[facility] [address] [place], [address] CA,Total 9.6 mg/dL Normal 8.5-10.1 [facility] Comment on above: Performed By: #### L 503.6005, L500.3400, L100.0100, L501.2450, L500.2500 ####[facility] [address] [place], [address] Chloride [Moles/Vol] 96 mmol/L Low 98-107 [facility] Comment on above: Performed By: #### L 503.6005, L500.3400, L100.0100, L501.2450, L500.2500 ####[facility] [address] [place], [address] CO2 [Moles/Vol] 27.0 mmol/L Normal 21.0-32.0 [facility] Comment on above: Performed By: #### L 503.6005, L500.3400, L100.0100, L501.2450, L500.2500 ####[facility] [address] [place], [address] Creatinine [Mass/Vol] 1.02 mg/dL Normal 0.55-1.02 [facility] Comment on above: Result Comment: The validity of the calculated GFR GFRAA in patients over 70 years has not been determined. Clinical correlation is essential. Performed By: #### L 503.6005, L500.3400, L100.0100, L501.2450, L500.2500 ####[facility] [address] [place], [address] EST GFR - AA 85 mL/min Normal >60 [facility] Comment on above: Result Comment: Afri can [place] GFR Calc Performed By: #### L 503.6005, L500.3400, L100.0100, L501.2450, L500.2500 ####[facility] [address] [place], [address] GAP 13 Normal 5-15 [facility] Comment on above: Performed By: #### L 503.6005, L500.3400, L100.0100, L501.2450, L500.2500 ####[facility] [address] [place], [address] GFR/1.73 sq M.predicted among non-blacks MDRD (S/P/Bld) [Vol rate/Area] 71 mL/min/{1.73_m2} Normal >60 [facility] Comment on above: Result Comment: Non- GFR Calc Performed By: #### L 503.6005, L500.3400, L100.0100, L501.2450, L500.2500 ####[facility] [address] [place], [address] Glucose [Mass/Vol] 90 mg/dL Normal 74-106 [facility] Comment on above: Performed By: #### L 503.6005, L500.3400, L100.0100, L501.2450, L500.2500 ####[facility] [address] [place], [address] Potassium [Moles/Vol] 2.6 mmol/L Invalid Interpretation Code 3.5-5.1 [facility] Comment on above: Result Comment: Crit ical Result(s) Called at: 12:02:57 07/23/2024 by: NABEEL SOLIS to Jing Seth. Results read back by same. Performed By: #### L 503.6005, L500.3400, L100.0100, L501.2450, L500.2500 ####[facility] [address] [place], [address] Sodium [Moles/Vol] 136 mmol/L Normal 136-145 [facility] Comment on above: Performed By: #### L 503.6005, L500.3400, L100.0100, L501.2450, L500.2500 ####[facility] [address] [place], [address] Urea nitrogen [Mass/Vol] 10 mg/dL Normal 7-18 [facility] Comment on above: Performed By: #### L 503.6005, L500.3400, L100.0100, L501.2450, L500.2500 ####[facility] [address] [place], [address] CBC W/Diff, Automatedon 11-09 12-2023 Absolute Lymph 1.91 X10 3/uL Normal 0.83-4.51 [facility] Comment on above: Performed By: #### L 503.6005, L500.3400, L100.0100, L501.2450, L500.2500 ####[facility] [address] [place], [address] Absolute Neut 12.8 X10 3/uL High 2.0-7.7 [facility] Comment on above: Performed By: #### L 503.6005, L500.3400, L100.0100, L501.2450, L500.2500 ####[facility] [address] [place], [address] Basophils/100 WBC (Bld) 0.4 % Normal 0-1 [facility] Comment on above: Performed By: #### L 503.6005, L500.3400, L100.0100, L501.2450, L500.2500 ####[facility] [address] [place], [address] Eosinophils/100 WBC (Bld) 1.8 % Normal 0-5 [facility] Comment on above: Performed By: #### L 503.6005, L500.3400, L100.0100, L501.2450, L500.2500 ####[facility] [address] [place], [address] Erythrocyte distribution width (RBC) [Ratio] 14.7 % High 11.6-14.6 [facility] Comment on above: Performed By: #### L 503.6005, L500.3400, L100.0100, L501.2450, L500.2500 ####[facility] [address] [place], [address] Hematocrit (Bld) [Volume fraction] 44.7 % Normal 37-47 [facility] Comment on above: Performed By: #### L 503.6005, L500.3400, L100.0100, L501.2450, L500.2500 ####[facility] [address] [place], [address] Hemoglobin (Bld) [Mass/Vol] 14.2 g/dL Normal 12.0-15.0 [facility] Comment on above: Performed By: #### L 503.6005, L500.3400, L100.0100, L501.2450, L500.2500 ####[facility] [address] [place], [address] IG% 0.700 Normal 0.0-0.9 [facility] Comment on above: Result Comment: IG% - Immature Granulocytes (promyelocytes, myelocytes and metamyelocytes) > 1% indicates that a LEFT SHIFT is Present. Performed By: #### L 503.6005, L500.3400, L100.0100, L501.2450, L500.2500 ####[facility] [address] [place], [address] Lymphocytes/100 WBC (Bld) 11.7 % Low 19-41 [facility] Comment on above: Performed By: #### L 503.6005, L500.3400, L100.0100, L501.2450, L500.2500 ####[facility] [address] [place], [address] MCH (RBC) [Entitic mass] 25.1 pg Low 27.0-32.0 [facility] Comment on above: Performed By: #### L 503.6005, L500.3400, L100.0100, L501.2450, L500.2500 ####[facility] [address] [place], [address] MCHC (RBC) [Mass/Vol] 31.8 g/dL Low 32-36 [facility] Comment on above: Performed By: #### L 503.6005, L500.3400, L100.0100, L501.2450, L500.2500 ####[facility] [address] [place], [address] MCV (RBC) [Entitic vol] 79.1 fL Low 81-99 [facility] Comment on above: Performed By: #### L 503.6005, L500.3400, L100.0100, L501.2450, L500.2500 ####[facility] [address] [place], [address] Monocytes/100 WBC (Bld) 7.1 % Normal 0-10 [facility] Comment on above: Performed By: #### L 503.6005, L500.3400, L100.0100, L501.2450, L500.2500 ####[facility] [address] [place], [address] Neutrophils/100 WBC (Bld) 78.3 % High 47-70 [facility] Comment on above: Performed By: #### L 503.6005, L500.3400, L100.0100, L501.2450, L500.2500 ####[facility] [address] [place], [address] Nucleated RBC (Bld) [#/Vol] 0 10*3/uL Normal 0-5 [facility] Comment on above: Performed By: #### L 503.6005, L500.3400, L100.0100, L501.2450, L500.2500 ####[facility] [address] [place], [address] Platelet mean volume (Bld) [Entitic vol] 8.9 fL Normal 6.2-12.0 [facility] Comment on above: Performed By: #### L 503.6005, L500.3400, L100.0100, L501.2450, L500.2500 ####[facility] [address] [place], [address] Platelets (Bld) [#/Vol] 395 10*3/uL Normal 150-450 [facility] Comment on above: Performed By: #### L 503.6005, L500.3400, L100.0100, L501.2450, L500.2500 ####[facility] [address] [place], [address] RBC (Bld) [#/Vol] 5.65 10*6/uL High 4.2-5.4 [facility] Comment on above: Performed By: #### L 503.6005, L500.3400, L100.0100, L501.2450, L500.2500 ####[facility] [address] [place], [address] RDW SD 40.9 fl Normal 35.1-43.9 [facility] Comment on above: Performed By: #### L 503.6005, L500.3400, L100.0100, L501.2450, L500.2500 ####[facility] [address] [place], [address] WBC (Bld) [#/Vol] 16.4 10*3/uL High 4.4-11.0 [facility] Comment on above: Performed By: #### L 503.6005, L500.3400, L100.0100, L501.2450, L500.2500 ####[facility] [address] [place], [address] Chest PA and Lateralon 07-23 Chest PA and Lateral [facility] Imaging Services [address] [place] [address] Chest PA and Lateral MR#: [id number] Acct: [id number] Name: ADDIS TORRES Rep #: [id number] : 2000 F 24 From: Mercy goldstein MD PCP: Dr. Tj Willams MD Status: PRE ER Study: Chest PA and Lateral Date of Exam: 07/23/24 Exam# [id number] Ordering Dr: Jovanni John DO [id number] HISTORY: cp. TECHNIQUE: XR Chest 2 Views. COMPARISON: 07/20/2024. FINDINGS: CARDIOMEDIASTINAL BORDERS: Cardiac silhouette within normal limits in size. Mediastinal contour unremarkable. LUNGS: Radiographically clear. PLEURA: No pleural effusion or pneumothorax seen. OSSEOUS STRUCTURES: Unremarkable. RAD/Chest PA and Lateral IMPRESSION: No acute cardiopulmonary process identified. Electronically Signed: Mercy Gutierrez MD at 11:40 EST , CC: Dr. Tj Willams MD; Dr. Jovanni John DO Music Education Adjunct Professor: Signed Normal [facility] Emergency Department Summary on 07-23-2024 Emergency Department Summary [facility] Medical Records Department [address] [place] [address] Emergency Department Summary 07/23/24 MR#: [id number] Acct: [id number] Name: ADDIS TORRES Rep #: [id number] : 2000 24 From: Jovanni John DO PCP: Dr. Tj Willams MD Status:ADM JAQUI Location: [address] History of Present Illness Chief Complaint: Nausea/Vomiting Narrative Narrative: Patient is a 24-year-old female who is presenting to the ER today with chief complaint of intractable nausea, vomiting, abdominal cramping, inability to tolerate food and liquid for the past 6 to 7 days. Patient says that she has been at [place] [facility] 3 times, today being the third. Patient says that she has been [place] [facility] twice in the past 7 days. Patient mother is at bedside along with boyfriend. Mother over talks patient and boyfriend with rapid speech. Patient does have a GI physician, Dr. Medina. They did call the GI service today, there is a nurse practitioner in the building they could see her today they were told, the patient was recommended to come to the ER. Patient does take acid reflux medication with no relief. Patient has history of marijuana use. Mother is very adamant that her marijuana use is not related to any of her symptoms of chronic nausea, vomiting, abdominal pain, GI upset. Patient has no headache or neck pain. She is also having chest tightness and chest pain. Patient had a hysterectomy. Patient had uterine cancer history. Patient still has both her ovaries. Patient still has her gallbladder and appendix. No other acute complaints at this time. Patient been trying to drink fluids this week without success. Patient does have Zofran that has not been helping. Patient is allergic to the Phenergan, she has not been able to do Phenergan suppositories. Patient also been prescribed Xanax, she states she has not been able to keep that down either. Patient states she is not going through withdrawal from opiates or benzos. [facility] Medical History Gastroparesis Cyclic vomiting syndrome History of alcohol abuse Ureteral stricture, left Retained ureteral stent Hypertension Depression Ureterolithiasis Ureter injury Non-smoker Endometrial cancer PCOS (polycystic ovarian syndrome) Home Medications ???Medication ???Instructions ???Recorded ???Last Taken ???Type acetaminophen 500 mg capsule 1,000 mg (2 x 500 mg) PO Q8H PRN 12/26/22 Unknown Rx PRN pain #60 caps amitriptyline 10 mg tablet 10 mg PO QHS #30 TABLETS 04/28/24 Unknown Rx pantoprazole 40 mg tablet,delayed 40 mg PO BID #60 TABLETS 04/28/24 Unknown Rx release gabapentin 100 mg capsule 200 mg (2 x 100 mg) PO TID #180 05/24/24 Unknown Rx caps sucralfate 100 mg/mL oral 10 ml PO QAC #414 mL 07/21/24 Unknown Rx suspension alprazolam 0.5 mg tablet 0.5 mg PO TID PRN abdominal pain 07/22/24 Unknown Rx #90 tabs hyoscyamine sulfate 0.125 mg 0.125 mg PO TID PRN dyspepsia #90 07/22/24 Unknown Rx disintegrating tablet tabs ondansetron 4 mg disintegrating 4 mg PO Q6H PRN nausea and 07/22/24 Unknown Rx tablet vomiting #90 tabs scopolamine base 1 mg over 3 days 1 patch transdermal Q72H #4 ea 07/22/24 Unknown Rx transdermal patch dicyclomine 20 mg tablet 20 mg PO 4X/DAY PRN abdominal pain 07/23/24 Unknown History metoclopramide HCl 5 mg tablet 5 mg PO 4X/DAY PRN nausea/vomiting 07/23/24 Unknown History Allergy/AdvReac Type Severity Reaction Status Date / Time ceftriaxone (From Rocephin) Allergy Hives Verified 07/23/24 10:06 promethazine (From Phenergan) Allergy Vomiting Verified 07/23/24 10:06 Ringer's solution,lactated Allergy Hives Verified 07/23/24 10:06 Family History Father No problems noted. Mother Anxiety and depression GERD (gastroesophageal reflux disease) Surgical History History of renal stent History of hysterectomy for cancer Social History household members: family Smoking Status: Never smoker alcohol intake: former substance use type: marijuana and other details: No marijuana use in the last month ROS ROS ED ROS Narrative REVIEW OF SYSTEMS: Unless otherwise stated in this report the patient's positive and negative responses for review of systems for constitutional, eyes, ENT, cardiovascular, respiratory, gastrointestinal, neurological, , musculoskeletal, and integument systems and related systems to the presenting problem are either stated in the history of present illness or were not pertinent or were negative for the symptoms and/or complaints related to the presenting medical problem. EXAM Physical Exam Narrative Exam Narrative: Vital signs reviewed (more content not included)... Normal [facility] Gallbladderon 07-23-2024 Gallbladder [facility] Imaging Services [address] [place], [place] [id number] Gallbladder MR#: [id number] Acct: [id number] Name: ADDIS TORRES Rep #: [id number] : 2000 F 24 From: Mercy goldstein MD PCP: Dr. Tj Willams MD Status: ADM JAQUI Study: Gallbladder Date of Exam: 07/23/24 Exam# [id number] Ordering Dr: Jovanni John DO [id number] HISTORY: Intractable nausea, vomiting. TECHNIQUE: Smith scale and color doppler imaging was performed of the right upper quadrant. 128 images. COMPARISON: CT 12/22/2022. FINDINGS: LIVER: 13.2 cm in length. Homogeneous echotexture without focal lesion demonstrated. No intrahepatic ductal dilatation. MAIN PORTAL VEIN: Patent with flow in the appropriate direction. COMMON BILE DUCT: 4 mm in diameter. GALLBLADDER: No gallstones. 3 mm wall thickness. No pericholecystic fluid. Sonographic Terry sign negative. PANCREAS: Visualized proximal portion unremarkable. RIGHT KIDNEY: 10.1 cm in length with a cortical thickness of 2 cm. No hydronephrosis or gross renal mass demonstrated. US/Gallbladder IMPRESSION: No sonographic evidence of cholelithiasis. Electronically Signed: Mercy Gutierrez MD at 8:33 EST Reading Location ID and State: [facility] / [place] Tel , Service support , CC: Dr. Tj Willams MD; Dr. Jovanni John DO Music Education Adjunct Professor: Signed Normal [facility] H AND P Exam - Hospitaliston 07-23-2024 H&P Exam - Hospitalist [facility] Medical Records Department [address] [place] [address] H P Exam - Hospitalist 07/23/24 1457 MR#: [id number] Acct: [id number] Name: ADDIS TORRES Rep #: [id number] : 2000 24 From: Cameron Dawkins MD PCP: Dr. Tj Willams MD Status:ADM JAQUI Location: OR3 [id number] HPI - General General Date of Admission: 07/23/24 HPI Kunal TORRES, is a 24 F who presents to the hospital with a weeks worth of nausea vomiting and abdominal pain. Abdominal pain is fairly diffuse and she has had significant workups in the past with multiple imaging modalities as well as an EGD. EGD was unremarkable and it was felt that she had gastroparesis with cyclic vomiting syndrome per GI. She is on multiple medications to prevent her nausea and vomiting, there is some concern that this is marijuana induced though it appears that she downplays the amount of marijuana that she uses. She is afebrile but she does have a leukocytosis. Urine sample is contaminated with squamous cells however most of her pain is in the right upper quadrant so we will obtain a right upper quadrant ultrasound in the ER. Urine culture is pending. She was given a dose of Cipro. [facility] Medical History Gastroparesis Cyclic vomiting syndrome History of alcohol abuse Ureteral stricture, left Retained ureteral stent Hypertension Depression Ureterolithiasis Ureter injury Non-smoker Endometrial cancer PCOS (polycystic ovarian syndrome) Home Medications ???Medication ???Instructions ???Recorded ???Last Taken ???Type acetaminophen 500 mg capsule 1,000 mg (2 x 500 mg) PO Q8H PRN 12/26/22 Unknown Rx PRN pain #60 caps amitriptyline 10 mg tablet 10 mg PO QHS #30 TABLETS 04/28/24 Unknown Rx pantoprazole 40 mg tablet,delayed 40 mg PO BID #60 TABLETS 04/28/24 Unknown Rx release gabapentin 100 mg capsule 200 mg (2 x 100 mg) PO TID #180 05/24/24 Unknown Rx caps sucralfate 100 mg/mL oral 10 ml PO QAC #414 mL 07/21/24 Unknown Rx suspension alprazolam 0.5 mg tablet 0.5 mg PO TID PRN abdominal pain 07/22/24 Unknown Rx #90 tabs hyoscyamine sulfate 0.125 mg 0.125 mg PO TID PRN dyspepsia #90 07/22/24 Unknown Rx disintegrating tablet tabs ondansetron 4 mg disintegrating 4 mg PO Q6H PRN nausea and 07/22/24 Unknown Rx tablet vomiting #90 tabs scopolamine base 1 mg over 3 days 1 patch transdermal Q72H #4 ea 07/22/24 Unknown Rx transdermal patch dicyclomine 20 mg tablet 20 mg PO 4X/DAY PRN abdominal pain 07/23/24 Unknown History metoclopramide HCl 5 mg tablet 5 mg PO 4X/DAY PRN nausea/vomiting 07/23/24 Unknown History Allergy/AdvReac Type Severity Reaction Status Date / Time ceftriaxone (From Rocephin) Allergy Hives Verified 07/23/24 10:06 promethazine (From Phenergan) Allergy Vomiting Verified 07/23/24 10:06 Ringer's solution,lactated Allergy Hives Verified 07/23/24 10:06 Family History Father No problems noted. Mother Anxiety and depression GERD (gastroesophageal reflux disease) Surgical History History of renal stent History of hysterectomy for cancer Social History household members: family Smoking Status: Never smoker alcohol intake: former substance use type: marijuana and other details: No marijuana use in the last month ROS Constitutional Constitutional: Denies chills, fatigue, fever(s) or malaise Eyes Eyes: Denies blurry vision ENT HEENT: Denies headache(s) or nasal discharge Cardiovascular Cardiovascular: Denies chest pain, dyspnea on exertion or syncope Respiratory/Chest Respiratory/Chest: Denies cough, shortness of breath at rest or shortness of breath with exertion Gastrointestinal Gastrointestinal: Reports abdominal pain, nausea and vomiting; Denies constipation or diarrhea Genitourinary Genitourinary: Denies dysuria Neurologic Neurologic: Denies focal weakness, numbness or tremor(s) Psychiatric Psychiatric: Denies anxiety or depression Vital Signs Vital Signs Vital Signs: 07/23/24 10:06 07/23/24 12:36 07/23/24 14:34 Temperature 98.9 F 97.5 F L 97.5 F L Temperature Source Temporal Temporal Pulse Rate 111 H 72 77 Respiratory Rate 22 H 18 18 Blood Pressure 146/104 H 150/100 H 152/91 H Blood Pressure Mean 118 116 111 Pulse Ox 100 96 98 Oxygen Delivery Method Room Air Room Air Weight Weight: 235 lb 10.786 oz Body Mass Index (BMI) 35.8 Physical Exam Narrative General: Alert, Oriented x3, Cooperative, No apparent distress HEENT: Atraumatic, PERRLA, EOMI, Normocephalic Oral: Moist Mucosa Neck: Supple, No JVD Lungs: Clear to auscultation (more content not included)... Normal [facility] Lactic Acidon 07-23-2024 Lactate [Moles/Vol] 1.1 mmol/L Normal 0.4-1.9 [facility] Comment on above: Order Comment: Y Performed By: #### L 503.6005, L500.3400, L100.0100, L501.2450, L500.2500 ####[facility] [address] [place], [address] Lipaseon 07-23-2024 Lipase [Catalytic activity/Vol] 63 U/L Normal 13-75 [facility] Comment on above: Result Comment: Isak medina note: LIPASE revised reference range effective 22. New Lipase methodology. Expected to produce lower values than the previous assay method. NEW Reference Range: 13 - 75 U/L Performed By: #### L 503.6005, L500.3400, L100.0100, L501.2450, L500.2500 ####[facility] [address] [place], [address] Liver Profileon 07-23-2024 Albumin [Mass/Vol] 4.7 g/dL Normal 3.2-5.0 [facility] Comment on above: Performed By: #### L 503.6005, L500.3400, L100.0100, L501.2450, L500.2500 ####[facility] [address] [place], [address] ALK P 61 U/L Normal 45-117 [facility] Comment on above: Performed By: #### L 503.6005, L500.3400, L100.0100, L501.2450, L500.2500 ####[facility] [address] [place], [address] ALT [Catalytic activity/Vol] 27 U/L Normal 13-56 [facility] Comment on above: Performed By: #### L 503.6005, L500.3400, L100.0100, L501.2450, L500.2500 ####[facility] [address] [place], [address] AST [Catalytic activity/Vol] 13 U/L Low 15-37 [facility] Comment on above: Performed By: #### L 503.6005, L500.3400, L100.0100, L501.2450, L500.2500 ####[facility] [address] [place], [address] Bilirubin [Mass/Vol] 0.70 mg/dL Normal 0.20-1.00 [facility] Comment on above: Result Comment: For patients on eltrombopag therapy, use of Dimension [place] TBIL is not recommended. Performed By: #### L 503.6005, L500.3400, L100.0100, L501.2450, L500.2500 ####[facility] [address] [place], [address] Bilirubin.direct [Mass/Vol] 0.18 mg/dL Normal 0.00-0.30 [facility] Comment on above: Performed By: #### L 503.6005, L500.3400, L100.0100, L501.2450, L500.2500 ####[facility] [address] [place], [address] Globulin (S) [Mass/Vol] 4.6 g/dL High 2.2-4.2 [facility] Comment on above: Performed By: #### L 503.6005, L500.3400, L100.0100, L501.2450, L500.2500 ####[facility] [address] [place], [address] T PROT 9.3 g/dL High 6.4-8.2 [facility] Comment on above: Performed By: #### L 503.6005, L500.3400, L100.0100, L501.2450, L500.2500 ####[facility] [address] [place], [address] Magnesiumon 07-23-2024 Magnesium [Mass/Vol] 2.3 mg/dL Normal 1.6-2.6 [facility] Comment on above: Performed By: #### L 501.5200, L501.2300 ####[facility] [address] [place], [address] Phosphoruson 07-23-2024 Phosphate [Mass/Vol] 2.4 mg/dL Low 2.5-4.9 [facility] Comment on above: Performed By: #### L 501.5200, L501.2300 ####[facility] [address] [place], [address] Urinalysis, Completeon 07-23 RBC 5-10 SEEN Normal 0-5 [facility] Comment on above: Order Comment: COLOR OF URINE MAY AFFECT DIPSTICK RESULTS.CLEAN CATCH Performed By: #### L 400.0001 ####[facility] [address] [place], [address] BACTERIA 4+ /hpf Normal None Seen [facility] Comment on above: Order Comment: COLOR OF URINE MAY AFFECT DIPSTICK RESULTS.CLEAN CATCH Performed By: #### L 400.0001 ####[facility] [address] [place], [address] EPI,SQUAMOUS 25-50 SEEN Normal 5-10 [facility] Comment on above: Order Comment: COLOR OF URINE MAY AFFECT DIPSTICK RESULTS.CLEAN CATCH Performed By: #### L 400.0001 ####[facility] [address] [place], [address] WBC >100 SEEN Normal 0-5 [facility] Comment on above: Order Comment: COLOR OF URINE MAY AFFECT DIPSTICK RESULTS.CLEAN CATCH Performed By: #### L 400.0001 ####[facility] [address] [place], [address] Mucus Ql (Urine sed) 0 SEEN Normal [facility] Comment on above: Order Comment: COLOR OF URINE MAY AFFECT DIPSTICK RESULTS.CLEAN CATCH Performed By: #### L 400.0001 ####[facility] [address] [place], [address] Gastroenterology Visit Repor ton 07-22-2024 Gastroenterology Visit Report [facility] [address] [place] [address] OFFICE VISIT Date of Service: 07/22/24 MR#: [id number] Acct: [id number] Name: ADDIS TORRES Rep #: [id number] : 2000 Provider: Corine Combs DO Age/Sex: 24/F [place] [facility] Status: Signed Intake Vital Signs 07/20/24 18:50 Height 5 ft 8 in Intake Visit Reasons: Abdominal pain Chief Complaint: n/v Allergies ceftriaxone (From Rocephin) Allergy (Verified 07/20/24 18:50) Hives promethazine (From Phenergan) Allergy (Verified 07/20/24 18:50) Vomiting Ringer's solution,lactated Allergy (Verified 07/20/24 18:50) Hives Medications ???Medication ???Instructions ???Recorded ???Confirmed ???Type acetaminophen 500 mg capsule 1,000 mg (2 x 500 mg) PO Q8H PRN 12/26/22 07/22/24 Rx PRN pain #60 caps amitriptyline 10 mg tablet 10 mg PO QHS #30 TABLETS 04/28/24 07/22/24 Rx metoclopramide HCl 5 mg/5 mL oral 10 mg (10 mL) PO TID #1,000 mL 04/28/24 07/22/24 Rx solution pantoprazole 40 mg tablet,delayed 40 mg PO BID #60 TABLETS 04/28/24 07/22/24 Rx release gabapentin 100 mg capsule 200 mg (2 x 100 mg) PO TID #180 05/24/24 07/22/24 Rx caps sucralfate 100 mg/mL oral 10 ml PO QAC #414 mL 07/21/24 07/22/24 Rx suspension alprazolam 0.5 mg tablet 0.5 mg PO TID PRN abdominal pain 07/22/24 07/22/24 Rx #90 tabs hyoscyamine sulfate 0.125 mg 0.125 mg PO TID PRN dyspepsia #90 07/22/24 07/22/24 Rx disintegrating tablet tabs ondansetron 4 mg disintegrating 4 mg PO Q6H PRN nausea and 07/22/24 07/22/24 Rx tablet vomiting #90 tabs PFSH Medical History Gastroparesis Cyclic vomiting syndrome History of alcohol abuse Ureteral stricture, left Retained ureteral stent Hypertension Depression Ureterolithiasis Ureter injury Non-smoker Endometrial cancer PCOS (polycystic ovarian syndrome) Surgical History History of renal stent History of hysterectomy for cancer Family History Father No problems noted. Mother Anxiety and depression GERD (gastroesophageal reflux disease) Social History household members: family Smoking Status: Never smoker alcohol intake: former substance use type: marijuana and other details: No marijuana use in the last month HPI HPI Chief Complaint: n/v Details: ADDIS TORRES, is a 24 F who presents to the office today for follow up. [facility] hospitalization 4.02.27-12.12.22 for management of abdominal pain with N/V. Compazine, Haldol and scopolamine patch all of which she later reports were ineffective. ? CT abd/pel 4.02.27 mild/moderate stool burden. *[facility] hospitalization 4.8-4. ED presentation for cyclic vomiting with abdominal pain. Admitted with GI consult 12.15.22; NG tube placed prior to consult with significant improvement of symptoms. [facility] ED 12.15.22, 12.16.22 for N/V and discharged each time without acute finding. [facility] hospitalization 12.22.22-12.26.22. ED presentation for epigastric pain and vomiting. History includes uterine cancer and rerouting or ureter into bladder. Admission recommended for endoscopy. GI consulted 12.24.22 noting remote use of marijuana. Gastroparesis noted with recommendation to start gabapentin and amitriptyline and reglan. ? CT abd/pel 12.22.22 without acute/chronic finding. ? US RUQ 12.23.22 without acute/chronic finding. ? EGD 12.24.22 LA Grade D esophagitis; gastritis; duodenal metaplasia. H.Pylori negative. ? Gastric emptying study 12.24.22 57.6minutes (12-56). OV 01.14.23 minimal N/V and abdominal pain. She has made dietary changes to Mediterranean diet with low residue and elimination of carbonated beverages. Continues with reglan, gabapentin, amitriptyline, PPI and Zofran PRN (has been taking Zofran routinely as she???s worried about stopping). OV 03.17.24 pt reports continued nausea, but states that her vomiting has improved. Pt reports continued alternating diarrhea and constipation; denies blood in the stool. Pt reports daily marijuana use. [facility] ED 07.17.24 abd pain. N/V [facility] 07.18.24 abd pain N/V [facility] ED 07.20.24 abd pain N/V acute abd series 07.20.24 No acute findings in the chest, abdomen or pelvis. OV 07.21.24 pt reports that 7 days ago she began having N/V and severe abd pain. Pt reports she has been to the ER several times and nothing has been done. Pt reports she is unable to keep anything down and that nothing is helping her pain. Pt reports she was diagno (more content not included)... Normal [facility] .Auto Diffon 07-20-2024 Basophil, Absolute 0.0 10 3/mcL Normal 0.0-0.2 [facility] Comment on above: Performed By: #### A DIFF, CMP, GFR, CBC, ANEU, MG, MDW, LIP #### [address] [address] Basophils/100 WBC (Bld) 0.2 % Normal 0.0-2.5 [facility] Comment on above: Performed By: #### A DIFF, CMP, GFR, CBC, ANEU, MG, MDW, LIP #### [address] [address] Eosinophil, Absolute 0.0 10 3/mcL Normal 0.0-0.7 [facility] Comment on above: Performed By: #### A DIFF, CMP, GFR, CBC, ANEU, MG, MDW, LIP #### [address] [address] Eosinophils/100 WBC (Bld) 0.0 % Normal 0.0-7.0 [facility] Comment on above: Performed By: #### A DIFF, CMP, GFR, CBC, ANEU, MG, MDW, LIP #### [address] [address] Lymphocyte, Absolute 0.6 10 3/mcL Low 0.9-4.3 [facility] Comment on above: Performed By: #### A DIFF, CMP, GFR, CBC, ANEU, MG, MDW, LIP #### [address] [address] Lymphocytes/100 WBC (Bld) 4.7 % Low 20.0-40.0 [facility] Comment on above: Performed By: #### A DIFF, CMP, GFR, CBC, ANEU, MG, MDW, LIP #### [address] [address] Monocyte, Absolute 0.4 10 3/mcL Normal 0.1-1.4 [facility] Comment on above: Performed By: #### A DIFF, CMP, GFR, CBC, ANEU, MG, MDW, LIP #### [address] [address] Monocytes/100 WBC (Bld) 3.2 % Normal 2.0-13.0 [facility] Comment on above: Performed By: #### A DIFF, CMP, GFR, CBC, ANEU, MG, MDW, LIP #### [address] [address] Neutrophils/100 WBC (Bld) 91.9 % High 50.0-75.0 [facility] Comment on above: Performed By: #### A DIFF, CMP, GFR, CBC, ANEU, MG, MDW, LIP #### [address] [address] Basophil, Absolute 0.0 10 3/mcL Normal 0.0-0.2 [facility] Comment on above: Performed By: #### A DIFF, CMP, GFR, CBC, ANEU, MG, MDW, LIP #### [address] [address] Basophils/100 WBC (Bld) 0.4 % Normal 0.0-2.5 [facility] Comment on above: Performed By: #### A DIFF, CMP, GFR, CBC, ANEU, MG, MDW, LIP #### [address] [address] Eosinophil, Absolute 0.1 10 3/mcL Normal 0.0-0.7 [facility] Comment on above: Performed By: #### A DIFF, CMP, GFR, CBC, ANEU, MG, MDW, LIP #### [address] [address] Eosinophils/100 WBC (Bld) 0.5 % Normal 0.0-7.0 [facility] Comment on above: Performed By: #### A DIFF, CMP, GFR, CBC, ANEU, MG, MDW, LIP #### [address] [address] Lymphocyte, Absolute 1.0 10 3/mcL Normal 0.9-4.3 [facility] Comment on above: Performed By: #### A DIFF, CMP, GFR, CBC, ANEU, MG, MDW, LIP #### [address] [address] Lymphocytes/100 WBC (Bld) 9.1 % Low 20.0-40.0 [facility] Comment on above: Performed By: #### A DIFF, CMP, GFR, CBC, ANEU, MG, MDW, LIP #### [address] [address] Monocyte, Absolute 0.6 10 3/mcL Normal 0.1-1.4 [facility] Comment on above: Performed By: #### A DIFF, CMP, GFR, CBC, ANEU, MG, MDW, LIP #### [address] [address] Monocytes/100 WBC (Bld) 5.3 % Normal 2.0-13.0 [facility] Comment on above: Performed By: #### A DIFF, CMP, GFR, CBC, ANEU, MG, MDW, LIP #### [address] [address] Neutrophils/100 WBC (Bld) 84.7 % High 50.0-75.0 [facility] Comment on above: Performed By: #### A DIFF, CMP, GFR, CBC, ANEU, MG, MDW, LIP #### [address] [address] .GFRon 07-20-2024 GFR 115 ml/min/1.73sqm Normal [facility] Comment on above: Result Comment: GFR Population mean for , Non- Americans Ages 20-29 = 116 mL/min/1.73 sq.m. Ages 30-39 = 107 mL/min/1.73 sq.m. Ages 40-49 = 99 mL/min/1.73 sq.m. Ages 50-59 = 93 mL/min/1.73 sq.m. Ages 60-69 = 85 mL/min/1.73 sq.m. Ages 70+ = 75 mL/min/1.73 sq.m. Chronic Kidney Disease: Less than 60 mL/min/1.73 square meters End Stage Renal Disease: Less than 15 mL/min/1.73 square meters Performed By: #### A DIFF, CMP, GFR, CBC, ANEU, MG, MDW, LIP #### [address] [address] GFR Non- 95 ml/min/1.73sqm [facility] Comment on above: Result Comment: GFR Population mean for , Non- Americans Ages 20-29 = 116 mL/min/1.73 sq.m. Ages 30-39 = 107 mL/min/1.73 sq.m. Ages 40-49 = 99 mL/min/1.73 sq.m. Ages 50-59 = 93 mL/min/1.73 sq.m. Ages 60-69 = 85 mL/min/1.73 sq.m. Ages 70+ = 75 mL/min/1.73 sq.m. Chronic Kidney Disease: Less than 60 mL/min/1.73 square meters End Stage Renal Disease: Less than 15 mL/min/1.73 square meters Performed By: #### A DIFF, CMP, GFR, CBC, ANEU, MG, MDW, LIP #### [address] [place], [place] [address] GFR 81 ml/min/1.73sqm [facility] Comment on above: Result Comment: GFR Population mean for , Non- Americans Ages 20-29 = 116 mL/min/1.73 sq.m. Ages 30-39 = 107 mL/min/1.73 sq.m. Ages 40-49 = 99 mL/min/1.73 sq.m. Ages 50-59 = 93 mL/min/1.73 sq.m. Ages 60-69 = 85 mL/min/1.73 sq.m. Ages 70+ = 75 mL/min/1.73 sq.m. Chronic Kidney Disease: Less than 60 mL/min/1.73 square meters End Stage Renal Disease: Less than 15 mL/min/1.73 square meters Performed By: #### A DIFF, CMP, GFR, CBC, ANEU, MG, MDW, LIP #### [address] [address] GFR Non- 67 ml/min/1.73sqm Normal [facility] Comment on above: Result Comment: GFR Population mean for , Non- Americans Ages 20-29 = 116 mL/min/1.73 sq.m. Ages 30-39 = 107 mL/min/1.73 sq.m. Ages 40-49 = 99 mL/min/1.73 sq.m. Ages 50-59 = 93 mL/min/1.73 sq.m. Ages 60-69 = 85 mL/min/1.73 sq.m. Ages 70+ = 75 mL/min/1.73 sq.m. Chronic Kidney Disease: Less than 60 mL/min/1.73 square meters End Stage Renal Disease: Less than 15 mL/min/1.73 square meters Performed By: #### A DIFF, CMP, GFR, CBC, ANEU, MG, MDW, LIP #### [address] [address] .MDWon 07-20-2024 Monocyte Distribution Width 15.78 Normal 0.00-20.00 [facility] Comment on above: Result Comment: For ED adult patients suspected of sepsis, MDW<=20.0 does not rule out sepsis or risk of sepsis Performed By: #### A DIFF, CMP, GFR, CBC, ANEU, MG, MDW, LIP #### [address] [address] .NEUABSon 07-20-2024 Neutrophil, Absolute 11.5 10 3/mcL High 2.3-8.1 [facility] Comment on above: Performed By: #### A DIFF, CMP, GFR, CBC, ANEU, MG, MDW, LIP #### [address] [address] Neutrophil, Absolute 9.7 10 3/mcL High 2.3-8.1 [facility] Comment on above: Performed By: #### A DIFF, CMP, GFR, CBC, ANEU, MG, MDW, LIP #### [address] [address] .Urinalysis Microscopic (AO) on 07-20-2024 UA Bacteria 1+ /hpf Abnormal [facility] Comment on above: Performed By: #### A DIFF, CMP, GFR, CBC, ANEU, MG, MDW, LIP #### [address] [address] UA RBC 0-5 Abnormal None Seen [facility] Comment on above: Performed By: #### A DIFF, CMP, GFR, CBC, ANEU, MG, MDW, LIP #### [place] [address] UA Squam Epithelial 5-10 Abnormal None Seen [facility] Comment on above: Performed By: #### A DIFF, CMP, GFR, CBC, ANEU, MG, MDW, LIP #### [address] [address] UA WBC 5-10 Abnormal None Seen [facility] Comment on above: Performed By: #### A DIFF, CMP, GFR, CBC, ANEU, MG, MDW, LIP #### [address] [address] Acute Abdomen Inc Cheston Acute Abdomen Inc Chest [facility] Imaging Services [address] [place] [address] [id number] [facility] [employer] Chest MR#: [id number] Acct: [id number] Name: ADDIS TORRES Rep #: [id number] : 2000 F 24 From: John hernandes DO PCP: Dr. Tj Willams MD Status: REG ER Study: Acute Abdomen Inc Chest Date of Exam: 07/20/24 Exam# [id number] Ordering Dr: Kevin San MD [id number] EXAM: XR ABDOMEN, 2 VIEWS AND XR CHEST, 1 VIEW CLINICAL INDICATION: pain TECHNIQUE: Frontal view of the chest, frontal view of the abdomen/pelvis and upright or decubitus view of the abdomen. COMPARISON: CT abdomen and pelvis, 07/08/2021. FINDINGS: CHEST: LUNGS AND PLEURAL SPACES: No significant abnormality. No consolidation or edema. No pneumothorax. No effusion. HEART: No significant abnormality. Cardiac silhouette not enlarged. MEDIASTINUM: Central airways and mediastinal contour are unremarkable. ABDOMEN: INTRAPERITONEAL SPACE: No free air. GASTROINTESTINAL TRACT: No significant abnormality. Non-obstructive. No bowel or stomach distention. ORGANS: Normal as visualized. No organomegaly. No abnormal calcifications. TUBES, LINES AND DEVICES: None. BONES/JOINTS: Scoliotic curvature and degenerative changes in the spine. SOFT TISSUES: No significant findings. RAD/Acute Abdomen Inc Chest IMPRESSION: No acute findings in the chest, abdomen or pelvis. Electronically Signed: John Renee DO at 21:24 EST , CC: Dr. Kevin San MD; Dr. 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 Normal [facility] 07-20-2024 BUN/Creatinine Ratio 5 ratio Low 7-27 [facility] Comment on above: Performed By: #### A DIFF, CMP, GFR, CBC, ANEU, MG, MDW, LIP #### [id number] [place], [place] [address] Calcium [Mass/Vol] 8.6 mg/dL Normal 8.4-10.2 [facility] Comment on above: Performed By: #### A DIFF, CMP, GFR, CBC, ANEU, MG, MDW, LIP #### [address] [place], [place] [address] Chloride [Moles/Vol] 99 mmol/L Normal 98-107 [facility] Comment on above: Performed By: #### A DIFF, CMP, GFR, CBC, ANEU, MG, MDW, LIP #### [address] [address] CO2 [Moles/Vol] 28 mmol/L Normal 22-29 [facility] Comment on above: Performed By: #### A DIFF, CMP, GFR, CBC, ANEU, MG, MDW, LIP #### [address] [address] Creatinine [Mass/Vol] 0.75 mg/dL Normal 0.55-1.02 [facility] Comment on above: Result Comment: Test ing performed on Siemens Dimension EXL analyzer using a modified kinetic Ale technique. Performed By: #### A DIFF, CMP, GFR, CBC, ANEU, MG, MDW, LIP #### [address] [address] Electrolyte Balance 5.0 mEq/L Normal 4.0-15.0 [facility] Comment on above: Performed By: #### A DIFF, CMP, GFR, CBC, ANEU, MG, MDW, LIP #### [address] [address] Glucose [Mass/Vol] 97 mg/dL Normal 70-105 [facility] Comment on above: Performed By: #### A DIFF, CMP, GFR, CBC, ANEU, MG, MDW, LIP #### [address] [address] Potassium [Moles/Vol] 3.5 mmol/L Normal 3.5-5.1 [facility] Comment on above: Performed By: #### A DIFF, CMP, GFR, CBC, ANEU, MG, MDW, LIP #### [address] [address] Sodium [Moles/Vol] 132 mmol/L Low 136-145 [facility] Comment on above: Performed By: #### A DIFF, CMP, GFR, CBC, ANEU, MG, MDW, LIP #### [address] [address] Urea nitrogen [Mass/Vol] 4 mg/dL Low 7-18 [facility] Comment on above: Performed By: #### A DIFF, CMP, GFR, CBC, ANEU, MG, MDW, LIP #### [place] [id number] CBCon 07-20-2024 Erythrocyte distribution width (RBC) [Ratio] 15.3 % Normal 11.5-15.5 [facility] Comment on above: Performed By: #### A DIFF, CMP, GFR, CBC, ANEU, MG, MDW, LIP #### [place] [address] Hematocrit (Bld) [Volume fraction] 34.5 % Normal 34.0-46.0 [facility] Comment on above: Performed By: #### A DIFF, CMP, GFR, CBC, ANEU, MG, MDW, LIP #### [place] [address] Hgb 11.2 G/dL Low 12.0-16.0 [facility] Comment on above: Performed By: #### A DIFF, CMP, GFR, CBC, ANEU, MG, MDW, LIP #### [place] [address] MCH (RBC) [Entitic mass] 25.8 pg Low 27.0-33.0 [facility] Comment on above: Performed By: #### A DIFF, CMP, GFR, CBC, ANEU, MG, MDW, LIP #### [place] [address] MCHC 32.4 G/dL Normal 32.0-36.0 [facility] Comment on above: Performed By: #### A DIFF, CMP, GFR, CBC, ANEU, MG, MDW, LIP #### [place] [address] MCV (RBC) [Entitic vol] 79.6 fL Low 80.0-99.0 [facility] Comment on above: Performed By: #### A DIFF, CMP, GFR, CBC, ANEU, MG, MDW, LIP #### [address] [address] Platelet 281 10 3/mcL Normal 150-450 [facility] Comment on above: Performed By: #### A DIFF, CMP, GFR, CBC, ANEU, MG, MDW, LIP #### [address] [address] Platelet mean volume (Bld) [Entitic vol] 6.6 fL Normal 6.6-10.5 [facility] Comment on above: Performed By: #### A DIFF, CMP, GFR, CBC, ANEU, MG, MDW, LIP #### [address] [address] RBC 4.34 10 6/mcL Normal 4.10-5.30 [facility] Comment on above: Performed By: #### A DIFF, CMP, GFR, CBC, ANEU, MG, MDW, LIP #### [place] [id number] WBC 12.5 10 3/mcL High 4.5-10.8 [facility] Comment on above: Performed By: #### A DIFF, CMP, GFR, CBC, ANEU, MG, MDW, LIP #### [address] [address] Erythrocyte distribution width (RBC) [Ratio] 15.4 % Normal 11.5-15.5 [facility] Comment on above: Performed By: #### A DIFF, CMP, GFR, CBC, ANEU, MG, MDW, LIP #### [address] [address] Hematocrit (Bld) [Volume fraction] 33.9 % Low 34.0-46.0 [facility] Comment on above: Performed By: #### A DIFF, CMP, GFR, CBC, ANEU, MG, MDW, LIP #### [address] [address] Hgb 11.1 G/dL Low 12.0-16.0 [facility] Comment on above: Performed By: #### A DIFF, CMP, GFR, CBC, ANEU, MG, MDW, LIP #### [address] [address] MCH (RBC) [Entitic mass] 26.0 pg Low 27.0-33.0 [facility] Comment on above: Performed By: #### A DIFF, CMP, GFR, CBC, ANEU, MG, MDW, LIP #### [address] [address] MCHC 32.6 G/dL Normal 32.0-36.0 [facility] Comment on above: Performed By: #### A DIFF, CMP, GFR, CBC, ANEU, MG, MDW, LIP #### [address] [address] MCV (RBC) [Entitic vol] 79.8 fL Low 80.0-99.0 [facility] Comment on above: Performed By: #### A DIFF, CMP, GFR, CBC, ANEU, MG, MDW, LIP #### [address] [address] Platelet 257 10 3/mcL Normal 150-450 [facility] Comment on above: Performed By: #### A DIFF, CMP, GFR, CBC, ANEU, MG, MDW, LIP #### [address] [address] Platelet mean volume (Bld) [Entitic vol] 6.5 fL Low 6.6-10.5 [facility] Comment on above: Performed By: #### A DIFF, CMP, GFR, CBC, ANEU, MG, MDW, LIP #### [address] [address] RBC 4.25 10 6/mcL Normal 4.10-5.30 [facility] Comment on above: Performed By: #### A DIFF, CMP, GFR, CBC, ANEU, MG, MDW, LIP #### [address] [address] WBC 11.5 10 3/mcL High 4.5-10.8 [facility] Comment on above: Performed By: #### A DIFF, CMP, GFR, CBC, ANEU, MG, MDW, LIP #### [place] [address] CMPon 07-20-2024 Albumin Level 4.0 G/dL Normal 3.5-5.0 [facility] Comment on above: Performed By: #### A DIFF, CMP, GFR, CBC, ANEU, MG, MDW, LIP #### [place] [address] Albumin/Globulin [Mass ratio] 1.2 {ratio} Normal 1.1-2.5 [facility] Comment on above: Performed By: #### A DIFF, CMP, GFR, CBC, ANEU, MG, MDW, LIP #### [place] [address] ALP [Catalytic activity/Vol] 57 U/L Normal 40-135 [facility] Comment on above: Performed By: #### A DIFF, CMP, GFR, CBC, ANEU, MG, MDW, LIP #### [place] [address] ALT [Catalytic activity/Vol] 28 U/L Normal 14-59 [facility] Comment on above: Performed By: #### A DIFF, CMP, GFR, CBC, ANEU, MG, MDW, LIP #### [place] [address] AST [Catalytic activity/Vol] 9 U/L Low 10-40 [facility] Comment on above: Performed By: #### A DIFF, CMP, GFR, CBC, ANEU, MG, MDW, LIP #### [place] [address] Bili Total 0.4 mg/dL Normal 0.2-1.0 [facility] Comment on above: Result Comment: Use of this assay is not recommended for patients undergoing treatment with eltrombopag due to the potential for falsely elevated results. Performed By: #### A DIFF, CMP, GFR, CBC, ANEU, MG, MDW, LIP #### [place] [address] BUN/Creatinine Ratio 8 ratio Normal 7-27 [facility] Comment on above: Performed By: #### A DIFF, CMP, GFR, CBC, ANEU, MG, MDW, LIP #### [address] [address] Calcium [Mass/Vol] 8.4 mg/dL Normal 8.4-10.2 [facility] Comment on above: Performed By: #### A DIFF, CMP, GFR, CBC, ANEU, MG, MDW, LIP #### [address] [address] Chloride [Moles/Vol] 100 mmol/L Normal 98-107 [facility] Comment on above: Performed By: #### A DIFF, CMP, GFR, CBC, ANEU, MG, MDW, LIP #### [place] [address] CO2 [Moles/Vol] 28 mmol/L Normal 22-29 [facility] Comment on above: Performed By: #### A DIFF, CMP, GFR, CBC, ANEU, MG, MDW, LIP #### [place] [address] Creatinine [Mass/Vol] 1.02 mg/dL Normal 0.55-1.02 [facility] Comment on above: Result Comment: Test ing performed on Siemens Dimension EXL analyzer using a modified kinetic Ale technique. Performed By: #### A DIFF, CMP, GFR, CBC, ANEU, MG, MDW, LIP #### [address] [address] Electrolyte Balance 6.0 mEq/L Normal 4.0-15.0 [facility] Comment on above: Performed By: #### A DIFF, CMP, GFR, CBC, ANEU, MG, MDW, LIP #### [place] [address] Globulin 3.3 G/dL Normal [facility] Comment on above: Performed By: #### A DIFF, CMP, GFR, CBC, ANEU, MG, MDW, LIP #### [address] [address] Glucose [Mass/Vol] 247 mg/dL High 70-105 [facility] Comment on above: Performed By: #### A DIFF, CMP, GFR, CBC, ANEU, MG, MDW, LIP #### [address] [address] Potassium [Moles/Vol] 3.3 mmol/L Low 3.5-5.1 [facility] Comment on above: Performed By: #### A DIFF, CMP, GFR, CBC, ANEU, MG, MDW, LIP #### [address] [address] Sodium [Moles/Vol] 134 mmol/L Low 136-145 [facility] Comment on above: Performed By: #### A DIFF, CMP, GFR, CBC, ANEU, MG, MDW, LIP #### [place] [id number] Total Protein 7.3 G/dL Normal 6.4-8.2 [facility] Comment on above: Performed By: #### A DIFF, CMP, GFR, CBC, ANEU, MG, MDW, LIP #### [address] [address] Urea nitrogen [Mass/Vol] 8 mg/dL Normal 7-18 [facility] Comment on above: Performed By: #### A DIFF, CMP, GFR, CBC, ANEU, MG, MDW, LIP #### [address] [address] Emergency Department Summary on 07-20-2024 Emergency Department Summary [facility] Medical Records Department [address] [place] [id number] Emergency Department Summary 07/20/24 MR#: [id number] Acct: [id number] Name: ADDIS TORRES Rep #: [id number] : 2000 24 From: Kevin San MD PCP: Dr. jT Willams MD Status:REG ER Location: ED HPI HPI - GI History of Present Illness Chief Complaint: Abd Pain Narrative Narrative: 24-year-old female presents with her mother and her boyfriend because of nausea and vomiting. She has history of gastroparesis. They relate history that this is her fifth visit to the ER in the last few days, and she was most recently seen today at [place] where she had a negative workup. She had a CT scan of the abdomen and pelvis which showed no acute process the other day. They state that laboratory work was performed, and her electrolytes were replenished. She had been seen here in the emergency department 2 days ago, and was diagnosed with cannabis hyperemesis. Her talk screen was positive for cannabis and reportedly she had used within the last week. Patient and her significant other states that she went home from the emergency department, and experienced nausea and vomiting again. They were told that she needs to come to [place] emergency department because her medical resident Dr. Combs is here. She states she is not really vomiting but having dry heaving and has diffuse abdominal pain as well. [facility] Medical History Gastroparesis Cyclic vomiting syndrome History of alcohol abuse Ureteral stricture, left Retained ureteral stent Hypertension Depression Ureterolithiasis Ureter injury Non-smoker Endometrial cancer PCOS (polycystic ovarian syndrome) Home Medications ???Medication ???Instructions ???Recorded ???Last Taken ???Type acetaminophen 500 mg capsule 1,000 mg (2 x 500 mg) PO Q8H PRN 12/26/22 Unknown Rx PRN pain #60 caps amitriptyline 10 mg tablet 10 mg PO QHS #30 TABLETS 04/28/24 Unknown Rx metoclopramide HCl 5 mg/5 mL oral 10 mg (10 mL) PO TID #1,000 mL 04/28/24 Unknown Rx solution ondansetron 4 mg disintegrating 4 mg PO Q6H PRN nausea and 04/28/24 Unknown Rx tablet vomiting #20 tabs pantoprazole 40 mg tablet,delayed 40 mg PO BID #60 TABLETS 04/28/24 Unknown Rx release gabapentin 100 mg capsule 200 mg (2 x 100 mg) PO TID #180 05/24/24 Unknown Rx caps Allergy/AdvReac Type Severity Reaction Status Date / Time ceftriaxone (From Rocephin) Allergy Hives Verified 07/20/24 18:50 promethazine (From Phenergan) Allergy Vomiting Verified 07/20/24 18:50 Ringer's solution,lactated Allergy Hives Verified 07/20/24 18:50 Family History Father No problems noted. Mother Anxiety and depression GERD (gastroesophageal reflux disease) Surgical History History of renal stent History of hysterectomy for cancer Social History household members: family Smoking Status: Never smoker alcohol intake: former substance use type: marijuana and other details: No marijuana use in the last month ROS ROS ED ROS Narrative Review of systems positive for diffuse abdominal pain, nausea and vomiting/dry heaving. No fevers or chills. No exacerbating or alleviating factors. EXAM Physical Exam Narrative Exam Narrative: Afebrile. Vital signs noted. Regular rate and rhythm. Lungs clear to auscultation bilaterally. Abdomen is soft with minimal diffuse tenderness to palpation, no rebound or guarding. Neurological examination nonfocal and nonlateralizing. Const Vital Signs: 07/20/24 18:50 07/20/24 20:50 Temperature 98.4 F Temperature Source Oral Pulse Rate 79 106 H Respiratory Rate 20 H 18 Blood Pressure 142/105 H 168/106 H Blood Pressure Mean 117 126 Pulse Ox 98 98 Oxygen Delivery Method Room Air MDM MDM MDM Narrative Medical decision making narrative: Differential diagnosis includes but not limited to cyclic vomiting syndrome versus cannabis induced hyperemesis versus gastroparesis. I have low suspicion for obstruction. She just came from an outside facility where she had laboratory work drawn. I reviewed her prior ED visits. Previously, during her last visit, she stated that the capsaicin alleviated her abdominal pain, however now she states as well as her mother that the capsaicin only burned her skin. She takes Bentyl at home as well as Reglan and amitriptyline, and attempted to take it this afternoon, but reportedly vomited it back up. I will obtain x-rays of the abdomen and the acute abdominal series to look for evidence of obstruction. She was administered Haldol intravenously in the event that this is hyp (more content not included)... Normal [facility] LABORATORYOrdered By: Cesar Bullard on 07-20-2024 Blood Glucose Testing Reason Routine (07/20/24 9:36 AM) [facility] Work Phone: Glucose [Mass/Vol] 95 mg/dL Normal 70 - 110 mg/dL [facility] Work Phone: LABORATORYOrdered By: SYSTEM SYSTEM on 07-20-2024 Basophils (Bld) [#/Vol] 0.0 103/mcL Normal 0.0 - 0.2 10^3/mcL AO Workflow SS Basophils/100 WBC (Bld) 0.2 % Normal 0.0 - 2.5 % AO Workflow SS Calcium [Mass/Vol] 8.6 mg/dL Normal 8.4 - 10. 2 mg/dL AO ADM SS Chloride [Moles/Vol] 99 mmol/L Normal 98 - 10 7 mmol/L AO ADM SS CO2 [Moles/Vol] 28 mmol/L Normal 22 - 29 mmol/L AO ADM SS Creatinine [Mass/Vol] 0.75 mg/dL Normal 0.55 - 1.02 mg/dL AO ADM SS Comment on above: Interpretive Data: T esting performed on Siemens Dimension EXL analyzer using a modified kinetic Ale technique. Electrolyte Balance 5.0 mEq/L Normal 4.0 - 15 .0 mEq/L AO ADM SS Eosinophil, Absolute 0.0 103/mcL Normal 0.0 - 0 .7 10^3/mcL AO Workflow SS Eosinophils/100 WBC (Bld) 0.0 % Normal 0.0 - 7.0 % AO Workflow SS Erythrocyte distribution width (RBC) [Ratio] 15.3 % Normal 11.5 - 15.5 % AO Workflow SS GFR/1.73 sq M.predicted among blacks MDRD (S/P/Bld) [Vol rate/Area] 115 ml/min/1.73sqm Invalid Interpretation Code AO Chemistry S Comment on above: Interpretive Data: GFR Population mean for , Non- Americans Ages 20-29 = 116 mL/min/1.73 sq.m. Ages 30-39 = 107 mL/min/1.73 sq.m. Ages 40-49 = 99 mL/min/1.73 sq.m. Ages 50-59 = 93 mL/min/1.73 sq.m. Ages 60-69 = 85 mL/min/1.73 sq.m. Ages 70+ = 75 mL/min/1.73 sq.m. Chronic Kidney Disease: Less than 60 mL/min/1.73 square meters End Stage Renal Disease: Less than 15 mL/min/1.73 square meters GFR/1.73 sq M.predicted among non-blacks MDRD (S/P/Bld) [Vol rate/Area] 95 ml/min/1.73sqm Invalid Interpretation Code AO Chemistry S Comment on above: Interpretive Data: GFR Population mean for , Non- Americans Ages 20-29 = 116 mL/min/1.73 sq.m. Ages 30-39 = 107 mL/min/1.73 sq.m. Ages 40-49 = 99 mL/min/1.73 sq.m. Ages 50-59 = 93 mL/min/1.73 sq.m. Ages 60-69 = 85 mL/min/1.73 sq.m. Ages 70+ = 75 mL/min/1.73 sq.m. Chronic Kidney Disease: Less than 60 mL/min/1.73 square meters End Stage Renal Disease: Less than 15 mL/min/1.73 square meters Glucose [Mass/Vol] 97 mg/dL Normal 70 - 105 mg/dL AO ADM SS Hematocrit (Bld) [Volume fraction] 34.5 % Normal 34.0 - 46.0 % AO Workflow SS Hemoglobin (Bld) [Mass/Vol] 11.2 G/dL Low 12.0 - 16.0 G/dL AO Workflow SS Lymphocytes (Bld) [#/Vol] 0.6 103/mcL Low 0.9 - 4.3 10^3/mcL AO Workflow SS Lymphocytes/100 WBC (Bld) 4.7 % Low 20.0 - 40.0 % AO Workflow SS Magnesium [Mass/Vol] 1.9 mg/dL Normal 1.8 - 2 .4 mg/dL AO ADM SS MCH (RBC) [Entitic mass] 25.8 pg Low 27. 0 - 33.0 pg AO Workflow SS MCHC 32.4 G/dL Normal 32.0 - 36.0 G/dL AO Workflow SS MCV (RBC) [Entitic vol] 79.6 fL Low 80.0 - 99.0 fL AO Workflow SS Monocytes (Bld) [#/Vol] 0.4 103/mcL Normal 0.1 - 1.4 10^3/mcL AO Workflow SS Monocytes/100 WBC (Bld) 3.2 % Normal 2.0 - 13.0 % AO Workflow SS Neutrophils (Bld) [#/Vol] 11.5 103/mcL High 2.3 - 8.1 10^3/mcL AO Workflow SS Neutrophils/100 WBC (Bld) 91.9 % High 50.0 - 75.0 % AO Workflow SS Platelet mean volume (Bld) [Entitic vol] 6.6 fL Normal 6.6 - 10.5 fL AO Workflow SS Platelets (Bld) [#/Vol] 281 103/mcL Normal 150 - 450 10^3/mcL AO Workflow SS Potassium [Moles/Vol] 3.5 mmol/L Normal 3.5 - 5.1 mmol/L AO ADM SS RBC (Bld) [#/Vol] 4.34 106/mcL Normal 4.10 - 5.30 10^6/mcL AO Workflow SS Sodium [Moles/Vol] 132 mmol/L Low 136 - 145 mmol/L AO ADM SS Urea nitrogen [Mass/Vol] 4 mg/dL Low 7 - 18 mg/dL AO ADM SS Urea nitrogen/Creatinine [Mass ratio] 5 ratio Low 7 - 27 ratio AO ADM SS WBC (Bld) [#/Vol] 12.5 103/mcL High 4.5 - 10.8 10^3/mcL AO Workflow SS Albumin BCP dye [Mass/Vol] 4.0 G/dL Normal 3.5 - 5.0 G/dL AO ADM SS Albumin/Globulin [Mass ratio] 1.2 {ratio} Normal 1.1 - 2.5 ratio AO ADM SS ALP [Catalytic activity/Vol] 57 U/L Normal 40 - 135 U/L AO ADM SS ALT With P-5'-P [Catalytic activity/Vol] 28 U/L Normal 14 - 59 U/L AO ADM SS AST With P-5'-P [Catalytic activity/Vol] 9 U/L Low 10 - 40 U/L AO ADM SS Basophils (Bld) [#/Vol] 0.0 103/mcL Normal 0.0 - 0.2 10^3/mcL AO Workflow SS Basophils/100 WBC (Bld) 0.4 % Normal 0.0 - 2.5 % AO Workflow SS Bilirubin [Mass/Vol] 0.4 mg/dL Normal 0.2 - 1 .0 mg/dL AO ADM SS Comment on above: Interpretive Data: U se of this assay is not recommended for patients undergoing treatment with eltrombopag due to the potential for falsely elevated results. Calcium [Mass/Vol] 8.4 mg/dL Normal 8.4 - 10. 2 mg/dL AO ADM SS Chloride [Moles/Vol] 100 mmol/L Normal 98 - 10 7 mmol/L AO ADM SS CO2 [Moles/Vol] 28 mmol/L Normal 22 - 29 mmol/L AO ADM SS Creatinine [Mass/Vol] 1.02 mg/dL Normal 0.55 - 1.02 mg/dL AO ADM SS Comment on above: Interpretive Data: T esting performed on Siemens Dimension EXL analyzer using a modified kinetic Ale technique. Electrolyte Balance 6.0 mEq/L Normal 4.0 - 15 .0 mEq/L AO ADM SS Eosinophil, Absolute 0.1 103/mcL Normal 0.0 - 0 .7 10^3/mcL AO Workflow SS Eosinophils/100 WBC (Bld) 0.5 % Normal 0.0 - 7.0 % AO Workflow SS Erythrocyte distribution width (RBC) [Ratio] 15.4 % Normal 11.5 - 15.5 % AO Workflow SS GFR/1.73 sq M.predicted among blacks MDRD (S/P/Bld) [Vol rate/Area] 81 ml/min/1.73sqm Invalid Interpretation Code AO Chemistry S Comment on above: Interpretive Data: GFR Population mean for , Non- Americans Ages 20-29 = 116 mL/min/1.73 sq.m. Ages 30-39 = 107 mL/min/1.73 sq.m. Ages 40-49 = 99 mL/min/1.73 sq.m. Ages 50-59 = 93 mL/min/1.73 sq.m. Ages 60-69 = 85 mL/min/1.73 sq.m. Ages 70+ = 75 mL/min/1.73 sq.m. Chronic Kidney Disease: Less than 60 mL/min/1.73 square meters End Stage Renal Disease: Less than 15 mL/min/1.73 square meters GFR/1.73 sq M.predicted among non-blacks MDRD (S/P/Bld) [Vol rate/Area] 67 ml/min/1.73sqm Invalid Interpretation Code AO Chemistry S Comment on above: Interpretive Data: GFR Population mean for , Non- Americans Ages 20-29 = 116 mL/min/1.73 sq.m. Ages 30-39 = 107 mL/min/1.73 sq.m. Ages 40-49 = 99 mL/min/1.73 sq.m. Ages 50-59 = 93 mL/min/1.73 sq.m. Ages 60-69 = 85 mL/min/1.73 sq.m. Ages 70+ = 75 mL/min/1.73 sq.m. Chronic Kidney Disease: Less than 60 mL/min/1.73 square meters End Stage Renal Disease: Less than 15 mL/min/1.73 square meters Globulin 3.3 G/dL Invalid Interpretation Code AO ADM SS Glucose [Mass/Vol] 247 mg/dL High 70 - 105 mg/dL AO ADM SS Hematocrit (Bld) [Volume fraction] 33.9 % Low 34.0 - 46.0 % AO Workflow SS Hemoglobin (Bld) [Mass/Vol] 11.1 G/dL Low 12.0 - 16.0 G/dL AO Workflow SS Lipase [Catalytic activity/Vol] 52 U/L Normal 16 - 77 U/L AO ADM SS Lymphocytes (Bld) [#/Vol] 1.0 103/mcL Normal 0.9 - 4.3 10^3/mcL AO Workflow SS Lymphocytes/100 WBC (Bld) 9.1 % Low 20.0 - 40.0 % AO Workflow SS Magnesium [Mass/Vol] 1.8 mg/dL Normal 1.8 - 2 .4 mg/dL AO ADM SS MCH (RBC) [Entitic mass] 26.0 pg Low 27. 0 - 33.0 pg AO Workflow SS MCHC 32.6 G/dL Normal 32.0 - 36.0 G/dL AO Workflow SS MCV (RBC) [Entitic vol] 79.8 fL Low 80.0 - 99.0 fL AO Workflow SS Monocyte distribution width Auto (Bld) [Entitic vol] 15.78 1 Normal 0.00 - 20.00 AO Workflow SS Comment on above: Result Comment: For ED adult patients suspected of sepsis, MDW<=20.0 does not rule out sepsis or risk of sepsis Monocytes (Bld) [#/Vol] 0.6 103/mcL Normal 0.1 - 1.4 10^3/mcL AO Workflow SS Monocytes/100 WBC (Bld) 5.3 % Normal 2.0 - 13.0 % AO Workflow SS Neutrophils (Bld) [#/Vol] 9.7 103/mcL High 2.3 - 8.1 10^3/mcL AO Workflow SS Neutrophils/100 WBC (Bld) 84.7 % High 50.0 - 75.0 % AO Workflow SS Platelet mean volume (Bld) [Entitic vol] 6.5 fL Low 6.6 - 10.5 fL AO Workflow SS Platelets (Bld) [#/Vol] 257 103/mcL Normal 150 - 450 10^3/mcL AO Workflow SS Potassium [Moles/Vol] 3.3 mmol/L Low 3.5 - 5.1 mmol/L AO ADM SS Protein [Mass/Vol] 7.3 G/dL Normal 6.4 - 8.2 G/dL AO ADM SS RBC (Bld) [#/Vol] 4.25 106/mcL Normal 4.10 - 5.30 10^6/mcL AO Workflow SS Sodium [Moles/Vol] 134 mmol/L Low 136 - 145 mmol/L AO ADM SS Urea nitrogen [Mass/Vol] 8 mg/dL Normal 7 - 18 mg/dL AO ADM SS Urea nitrogen/Creatinine [Mass ratio] 8 ratio Normal 7 - 27 ratio AO ADM SS WBC (Bld) [#/Vol] 11.5 103/mcL High 4.5 - 10.8 10^3/mcL AO Workflow SS LABORATORYOrdered By: Jacklyn Loza on 07-20-2024 Amphetamines Screen Ql (U) Negative *NA* (07/20/24 2:17 AM) Invalid Interpretation Code Negative AO ADM SS Barbiturates Screen Ql (U) Negative *NA* (07/20/24 2:17 AM) Invalid Interpretation Code Negative AO ADM SS Benzodiazepines Ql (U) Negative *NA* (07/20/24 2:17 AM) Invalid Interpretation Code Negative AO ADM SS Benzoylecgonine Screen Ql (U) Negative *NA* (07/20/24 2:17 AM) Invalid Interpretation Code Negative AO ADM SS Cannabinoids Screen Ql (U) Positive *ABN* (07/20/24 2:17 AM) Invalid Interpretation Code Negative AO ADM SS Methadone Screen Ql (U) Negative *NA* (07/20/24 2:17 AM) Invalid Interpretation Code Negative AO ADM SS Opiates Screen Ql (U) Negative *NA* (07/20/24 2:17 AM) Invalid Interpretation Code Negative AO ADM SS Phencyclidine Ql (U) Negative *NA* (07/20/24 2:17 AM) Invalid Interpretation Code Negative AO ADM SS Urine Drugs screened: See Below 5 (07/20/24 2:17 AM) Normal AO Chemistry S Comment on above: Interpretive Data: T his drug screen is a presumptive screening only. No confirmation will be performed unless requested. Drugs screened include: Threshold Amphetamines/Methamphetamines 1,000 ng/mL Barbiturates 200 ng/mL Benzodiazepine metabolites 200 ng/mL Cannabinoids (THC metabolites) 50 ng/mL Cocaine 300 ng/mL Opiates 300 ng/mL Methadone 300 ng/mL Phencyclidine (PCP) 25 ng/mL Testing has been performed FOR MEDICAL PURPOSES ONLY. LABORATORYOrdered By: Chelsea Reyes on 07-20-2024 Appearance (U) Cloudy *ABN* (07/20/24 2:17 AM) Invalid Interpretation Code Clear AO Auto Urine SS Bacteria LM.HPF (Urine sed) [#/Area] 1 /[HPF] Invalid Interpretation Code AO Auto Urine SS Bilirubin Ql (U) Negative (07/20/24 2:17 AM) Normal Negative AO Auto Urine SS Color (U) Yellow (07/20/24 2:17 AM) Normal AO Auto Urine SS Glucose Test strip (U) [Mass/Vol] Negative Normal Negative AO Auto Urine SS Hemoglobin Auto test strip (U) [Mass/Vol] Trace *ABN* (07/20/24 2:17 AM) Invalid Interpretation Code Negative AO Auto Urine SS Ketones Ql (U) >=160 mg/dL Invalid Interpretation Code Negative AO Auto Urine SS UA Leuk Est Small *ABN* (07/20/24 2:17 AM) Invalid Interpretation Code Negative AO Auto Urine SS UA Nitrite Negative (07/20/24 2:17 AM) Normal Negative AO Auto Urine SS UA pH 5.5 (07/20/24 2:17 AM) Normal 5.0 - 8.0 AO Auto Urine SS UA Protein Trace mg/dL Normal Negative AO Auto Urine SS UA RBC 0-5 /HPF Invalid Interpretation Code None Seen AO Auto Urine SS UA Spec Grav >=1.030 *ABN* (07/20/24 2:17 AM) Invalid Interpretation Code 1.015-1.02 5 AO Auto Urine SS UA Specimen Type Clean Catch (07/20/24 2:17 AM) Normal AO Auto Urine SS UA Squam Epithelial 5-10 /HPF Invalid Interpretation Code None Seen AO Auto Urine SS UA Urobilinogen 1.0 E.U./dL Normal 0.2-1.0 AO Auto Urine SS WBC LM.HPF (Urine sed) [#/Area] 5-10 /HPF Invalid Interpretation Code None Seen AO Auto Urine SS LIPon 07-20-2024 Lipase Level 52 U/L Normal 16-77 [facility] Comment on above: Performed By: #### A DIFF, CMP, GFR, CBC, ANEU, MG, MDW, LIP #### [address] [address] MGon 07-20-2024 Magnesium [Mass/Vol] 1.9 mg/dL Normal 1.8-2.4 [facility] Comment on above: Performed By: #### A DIFF, CMP, GFR, CBC, ANEU, MG, MDW, LIP #### [address] [address] Magnesium [Mass/Vol] 1.8 mg/dL Normal 1.8-2.4 [facility] Comment on above: Performed By: #### A DIFF, CMP, GFR, CBC, ANEU, MG, MDW, LIP #### [address] [address] UAon 07-20-2024 Color (U) Yellow Normal [facility] Comment on above: Performed By: #### U A, UAMIC, PREGU #### [address] [address] Glucose (U) [Mass/Vol] Negative Normal Negative [facility] Comment on above: Performed By: #### U A, UAMIC, PREGU #### [address] [address] Ketones Ql (U) >=160 Abnormal Negative [facility] Comment on above: Performed By: #### U A, UAMIC, PREGU #### [place] [address] UA Appear Cloudy Abnormal Clear [facility] Comment on above: Performed By: #### U A, UAMIC, PREGU #### [place] [address] UA Blood Trace Abnormal Negative [facility] Comment on above: Performed By: #### U A, UAMIC, PREGU #### [place] [address] UA Leuk Est Small Abnormal Negative [facility] Comment on above: Performed By: #### U A, UAMIC, PREGU #### [place] [address] UA Nitrite Negative Normal Negative [facility] Comment on above: Performed By: #### U A, UAMIC, PREGU #### [place] [address] UA pH 5.5 Normal 5.0 - 8.0 [facility] Comment on above: Performed By: #### U A, UAMIC, PREGU #### [place] [address] UA Protein Trace Normal Negative [facility] Comment on above: Performed By: #### U A, UAMIC, PREGU #### [place] [address] UA Spec Grav >=1.030 Abnormal 1.015-1.[address] [place] [address] Comment on above: Performed By: #### U A, UAMIC, PREGU #### [place] [address] UA Specimen Type Clean Catch Normal [facility] Comment on above: Performed By: #### U A, UAMIC, PREGU #### [place] [address] UA Urobilinogen 1.0 E.U./dL Normal 0.2-1.0 [facility] Comment on above: Performed By: #### U A, UAMIC, PREGU #### [address] [address] Urobilinogen (U) [Mass/Vol] Negative Normal Negative [facility] Comment on above: Performed By: #### U A, UAMIC, PREGU #### [place] [address] UDRUGon 07-20-2024 Amphetamine (u) Negative Normal Negative [facility] Comment on above: Performed By: #### A DIFF, CMP, GFR, CBC, ANEU, MG, MDW, LIP #### [place] [address] Barbiturate (u) Negative Normal Negative [facility] Comment on above: Performed By: #### A DIFF, CMP, GFR, CBC, ANEU, MG, MDW, LIP #### [place] [address] Benzodiazepine (u) Negative Normal Negative [facility] Comment on above: Performed By: #### A DIFF, CMP, GFR, CBC, ANEU, MG, MDW, LIP #### [address] [address] Cannabinoid (u) Positive Abnormal Negative [facility] Comment on above: Performed By: #### A DIFF, CMP, GFR, CBC, ANEU, MG, MDW, LIP #### [place] [address] Cocaine Ql (U) Negative Normal Negative [facility] Comment on above: Performed By: #### A DIFF, CMP, GFR, CBC, ANEU, MG, MDW, LIP #### [address] [address] Methadone Ql (U) Negative Normal Negative [facility] Comment on above: Performed By: #### A DIFF, CMP, GFR, CBC, ANEU, MG, MDW, LIP #### [address] [address] Opiate (u) Negative Normal Negative [facility] Comment on above: Performed By: #### A DIFF, CMP, GFR, CBC, ANEU, MG, MDW, LIP #### [place] [id number] [place], [place] [address] PCP (u) Negative Normal Negative [facility] Comment on above: Performed By: #### A DIFF, CMP, GFR, CBC, ANEU, MG, MDW, LIP #### [address] [address] Urine Drugs screened: See Below Normal [facility] Comment on above: Result Comment: This drug screen is a presumptive screening only. No confirmation will be performed unless requested. Drugs screened include: Threshold Amphetamines/Methamphetamines 1,000 ng/mL Barbiturates 200 ng/mL Benzodiazepine metabolites 200 ng/mL Cannabinoids (THC metabolites) 50 ng/mL Cocaine 300 ng/mL Opiates 300 ng/mL Methadone 300 ng/mL Phencyclidine (PCP) 25 ng/mL Testing has been performed FOR MEDICAL PURPOSES ONLY. Performed By: #### A DIFF, CMP, GFR, CBC, ANEU, MG, MDW, LIP #### [address] [address] .Auto Diffon 07-19-2024 Basophil, Absolute 0.0 10 3/mcL Normal 0.0-0.2 [facility] Comment on above: Performed By: #### A DIFF, CMP, GFR, CBC, ANEU, MG, MDW, LIP #### [address] [address] Basophils/100 WBC (Bld) 0.3 % Normal 0.0-2.5 [facility] Comment on above: Performed By: #### A DIFF, CMP, GFR, CBC, ANEU, MG, MDW, LIP #### [address] [address] Eosinophil, Absolute 0.0 10 3/mcL Normal 0.0-0.7 [facility] Comment on above: Performed By: #### A DIFF, CMP, GFR, CBC, ANEU, MG, MDW, LIP #### [address] [address] Eosinophils/100 WBC (Bld) 0.0 % Normal 0.0-7.0 [facility] Comment on above: Performed By: #### A DIFF, CMP, GFR, CBC, ANEU, MG, MDW, LIP #### [address] [address] Lymphocyte, Absolute 1.3 10 3/mcL Normal 0.9-4.3 [facility] Comment on above: Performed By: #### A DIFF, CMP, GFR, CBC, ANEU, MG, MDW, LIP #### [address] [address] Lymphocytes/100 WBC (Bld) 11.6 % Low 20.0-40.0 [facility] Comment on above: Performed By: #### A DIFF, CMP, GFR, CBC, ANEU, MG, MDW, LIP #### [address] [address] Monocyte, Absolute 0.7 10 3/mcL Normal 0.1-1.4 [facility] Comment on above: Performed By: #### A DIFF, CMP, GFR, CBC, ANEU, MG, MDW, LIP #### [address] [address] Monocytes/100 WBC (Bld) 6.4 % Normal 2.0-13.0 [facility] Comment on above: Performed By: #### A DIFF, CMP, GFR, CBC, ANEU, MG, MDW, LIP #### [address] [address] Neutrophils/100 WBC (Bld) 81.7 % High 50.0-75.0 [facility] Comment on above: Performed By: #### A DIFF, CMP, GFR, CBC, ANEU, MG, MDW, LIP #### [address] [address] .GFRon 07-19-2024 GFR Non- 63 ml/min/1.73sqm Normal [facility] Comment on above: Result Comment: GFR Population mean for , Non- Americans Ages 20-29 = 116 mL/min/1.73 sq.m. Ages 30-39 = 107 mL/min/1.73 sq.m. Ages 40-49 = 99 mL/min/1.73 sq.m. Ages 50-59 = 93 mL/min/1.73 sq.m. Ages 60-69 = 85 mL/min/1.73 sq.m. Ages 70+ = 75 mL/min/1.73 sq.m. Chronic Kidney Disease: Less than 60 mL/min/1.73 square meters End Stage Renal Disease: Less than 15 mL/min/1.73 square meters Performed By: #### A DIFF, CMP, GFR, CBC, ANEU, MG, MDW, LIP #### [address] [address] GFR 76 ml/min/1.73sqm Normal [facility] Comment on above: Result Comment: GFR Population mean for , Non- Americans Ages 20-29 = 116 mL/min/1.73 sq.m. Ages 30-39 = 107 mL/min/1.73 sq.m. Ages 40-49 = 99 mL/min/1.73 sq.m. Ages 50-59 = 93 mL/min/1.73 sq.m. Ages 60-69 = 85 mL/min/1.73 sq.m. Ages 70+ = 75 mL/min/1.73 sq.m. Chronic Kidney Disease: Less than 60 mL/min/1.73 square meters End Stage Renal Disease: Less than 15 mL/min/1.73 square meters Performed By: #### A DIFF, CMP, GFR, CBC, ANEU, MG, MDW, LIP #### [address] [address] .MDWon 07-19-2024 Monocyte Distribution Width 19.37 Normal 0.00-20.00 [facility] Comment on above: Result Comment: For ED adult patients suspected of sepsis, MDW<=20.0 does not rule out sepsis or risk of sepsis Performed By: #### A DIFF, CMP, GFR, CBC, ANEU, MG, MDW, LIP #### [address] [address] .NEUABSon 07-19-2024 Neutrophil, Absolute 8.8 10 3/mcL High 2.3-8.1 [facility] Comment on above: Performed By: #### A DIFF, CMP, GFR, CBC, ANEU, MG, MDW, LIP #### [address] [address] .Urinalysis Microscopic (AO) on 07-19-2024 UA Bacteria Trace Abnormal [facility] Comment on above: Performed By: #### A DIFF, CMP, GFR, CBC, ANEU, MG, MDW, LIP #### [place] [address] UA Mucous 2+ /hpf Normal [facility] Comment on above: Performed By: #### A DIFF, CMP, GFR, CBC, ANEU, MG, MDW, LIP #### [address] [address] UA RBC None Seen Normal None Seen [facility] Comment on above: Performed By: #### A DIFF, CMP, GFR, CBC, ANEU, MG, MDW, LIP #### [place] [address] UA Squam Epithelial 0-5 Abnormal None Seen [facility] Comment on above: Performed By: #### A DIFF, CMP, GFR, CBC, ANEU, MG, MDW, LIP #### [address] [address] UA WBC 0-5 Abnormal None Seen [facility] Comment on above: Performed By: #### A DIFF, CMP, GFR, CBC, ANEU, MG, MDW, LIP #### [address] [address] CBCon 07-19-2024 Erythrocyte distribution width (RBC) [Ratio] 15.3 % Normal 11.5-15.5 [facility] Comment on above: Performed By: #### A DIFF, CMP, GFR, CBC, ANEU, MG, MDW, LIP #### [place] [address] Hematocrit (Bld) [Volume fraction] 34.7 % Normal 34.0-46.0 [facility] Comment on above: Performed By: #### A DIFF, CMP, GFR, CBC, ANEU, MG, MDW, LIP #### [address] [address] Hgb 11.6 G/dL Low 12.0-16.0 [facility] Comment on above: Performed By: #### A DIFF, CMP, GFR, CBC, ANEU, MG, MDW, LIP #### [address] [address] MCH (RBC) [Entitic mass] 26.3 pg Low 27.0-33.0 [facility] Comment on above: Performed By: #### A DIFF, CMP, GFR, CBC, ANEU, MG, MDW, LIP #### [address] [address] MCHC 33.3 G/dL Normal 32.0-36.0 [facility] Comment on above: Performed By: #### A DIFF, CMP, GFR, CBC, ANEU, MG, MDW, LIP #### [address] [address] MCV (RBC) [Entitic vol] 79.1 fL Low 80.0-99.0 [facility] Comment on above: Performed By: #### A DIFF, CMP, GFR, CBC, ANEU, MG, MDW, LIP #### [address] [address] Platelet 289 10 3/mcL Normal 150-450 [facility] Comment on above: Performed By: #### A DIFF, CMP, GFR, CBC, ANEU, MG, MDW, LIP #### [address] [address] Platelet mean volume (Bld) [Entitic vol] 6.4 fL Low 6.6-10.5 [facility] Comment on above: Performed By: #### A DIFF, CMP, GFR, CBC, ANEU, MG, MDW, LIP #### [address] [address] RBC 4.39 10 6/mcL Normal 4.10-5.30 [facility] Comment on above: Performed By: #### A DIFF, CMP, GFR, CBC, ANEU, MG, MDW, LIP #### [address] [address] WBC 10.8 10 3/mcL Normal 4.5-10.8 [facility] Comment on above: Performed By: #### A DIFF, CMP, GFR, CBC, ANEU, MG, MDW, LIP #### [address] [address] CMPon 07-19-2024 Albumin Level 4.5 G/dL Normal 3.5-5.0 [facility] Comment on above: Performed By: #### A DIFF, CMP, GFR, CBC, ANEU, MG, MDW, LIP #### [address] [address] Albumin/Globulin [Mass ratio] 1.3 {ratio} Normal 1.1-2.5 [facility] Comment on above: Performed By: #### A DIFF, CMP, GFR, CBC, ANEU, MG, MDW, LIP #### [address] [address] ALP [Catalytic activity/Vol] 63 U/L Normal 40-135 [facility] Comment on above: Performed By: #### A DIFF, CMP, GFR, CBC, ANEU, MG, MDW, LIP #### [address] [address] ALT [Catalytic activity/Vol] 28 U/L Normal 14-59 [facility] Comment on above: Performed By: #### A DIFF, CMP, GFR, CBC, ANEU, MG, MDW, LIP #### [address] [address] AST [Catalytic activity/Vol] 15 U/L Normal 10-40 [facility] Comment on above: Performed By: #### A DIFF, CMP, GFR, CBC, ANEU, MG, MDW, LIP #### [address] [address] Bili Total 0.5 mg/dL Normal 0.2-1.0 [facility] Comment on above: Result Comment: Use of this assay is not recommended for patients undergoing treatment with eltrombopag due to the potential for falsely elevated results. Performed By: #### A DIFF, CMP, GFR, CBC, ANEU, MG, MDW, LIP #### [place] [address] BUN/Creatinine Ratio 10 ratio Normal 7-27 [facility] Comment on above: Performed By: #### A DIFF, CMP, GFR, CBC, ANEU, MG, MDW, LIP #### [place] [address] Calcium [Mass/Vol] 9.0 mg/dL Normal 8.4-10.2 [facility] Comment on above: Performed By: #### A DIFF, CMP, GFR, CBC, ANEU, MG, MDW, LIP #### [place] [address] Chloride [Moles/Vol] 101 mmol/L Normal 98-107 [facility] Comment on above: Performed By: #### A DIFF, CMP, GFR, CBC, ANEU, MG, MDW, LIP #### [place] [address] CO2 [Moles/Vol] 25 mmol/L Normal 22-29 [facility] Comment on above: Performed By: #### A DIFF, CMP, GFR, CBC, ANEU, MG, MDW, LIP #### [place] [id number] Creatinine [Mass/Vol] 1.07 mg/dL High 0.55-1.02 [facility] Comment on above: Result Comment: Test ing performed on Siemens Dimension EXL analyzer using a modified kinetic Ale technique. Performed By: #### A DIFF, CMP, GFR, CBC, ANEU, MG, MDW, LIP #### [place] [address] Electrolyte Balance 11.0 mEq/L Normal 4.0-15.0 [facility] Comment on above: Performed By: #### A DIFF, CMP, GFR, CBC, ANEU, MG, MDW, LIP #### [address] [address] Globulin 3.5 G/dL Normal [facility] Comment on above: Performed By: #### A DIFF, CMP, GFR, CBC, ANEU, MG, MDW, LIP #### [address] [address] Glucose [Mass/Vol] 111 mg/dL High 70-105 [facility] Comment on above: Performed By: #### A DIFF, CMP, GFR, CBC, ANEU, MG, MDW, LIP #### [address] [address] Potassium [Moles/Vol] 3.2 mmol/L Low 3.5-5.1 [facility] Comment on above: Performed By: #### A DIFF, CMP, GFR, CBC, ANEU, MG, MDW, LIP #### [address] [address] Sodium [Moles/Vol] 137 mmol/L Normal 136-145 [facility] Comment on above: Performed By: #### A DIFF, CMP, GFR, CBC, ANEU, MG, MDW, LIP #### [address] [address] Total Protein 8.0 G/dL Normal 6.4-8.2 [facility] Comment on above: Performed By: #### A DIFF, CMP, GFR, CBC, ANEU, MG, MDW, LIP #### [address] [address] Urea nitrogen [Mass/Vol] 11 mg/dL Normal 7-18 [facility] Comment on above: Performed By: #### A DIFF, CMP, GFR, CBC, ANEU, MG, MDW, LIP #### [address] [address] [address] ABD/PELVIS W/ IV CONTRAST ONLY 07-19-2024 CT ABD/PELVIS W/ IV CONTRAST ONLY ORIGINAL EXAMINATION: CT OF THE ABDOMEN AND PELVIS WITH CONTRAST 07/19/2024 6:57 am TECHNIQUE: CT of the abdomen and pelvis was performed with the administration of intravenous contrast. Multiplanar reformatted images are provided for review. Automated exposure control, iterative reconstruction, and/or weight based adjustment of the mA/kV was utilized to reduce the radiation dose to as low as reasonably achievable. COMPARISON: September 14, 2021 HISTORY: ORDERING SYSTEM PROVIDED HISTORY: Reason for Exam: pain FINDINGS: No osseous abnormality identified. Liver, spleen, adrenal glands and pancreas are unremarkable. No kidney abnormality is visible. No adenopathy, free air or free fluid is visible. A tiny fat containing umbilical hernia is evident. The uterus is not readily apparent compatible with the stated history of partial hysterectomy. The ovaries and urinary bladder are grossly normal. No GI tract abnormality is visible. The appendix is normal. No additional contributory abnormality. IMPRESSION: No acute process. Interpreted by: Amado Hassan MD Preliminary Report By: Amado Hassan MD Electronically signed By Amado Hassan MD Dictated Date: 07/19/2024 8:12:46 AM Prelim Date: 07/19/2024 8:15:54 AM Sign Date: 07/19/2024 8:15:54 AM Ordering Provider: [facility]renas [facility]dered By: Holly Pitt on 07-19-2024 Appearance (U) Slightly Cloudy *ABN* (07/19/24 6:50 AM) Invalid Interpretation Code Clear AO Auto Urine SS Bacteria LM.HPF (Urine sed) [#/Area] Trace /HPF Invalid Interpretation Code AO Auto Urine SS Bilirubin Ql (U) Small *ABN* (07/19/24 6:50 AM) Invalid Interpretation Code Negative AO Auto Urine SS Color (U) Superior *ABN* (07/19/24 6:50 AM) Invalid Interpretation Code AO Auto Urine SS Glucose Test strip (U) [Mass/Vol] 100 mg/dL Invalid Interpretation Code Negative AO Auto Urine SS Hemoglobin Auto test strip (U) [Mass/Vol] Negative (07/19/24 6:50 AM) Normal Negative AO Auto Urine SS Ketones Ql (U) >=160 mg/dL Invalid Interpretation Code Negative AO Auto Urine SS UA Leuk Est Negative (07/19/24 6:50 AM) Normal Negative AO Auto Urine SS UA Mucous 2+ /HPF Normal AO Auto Urine SS UA Nitrite Positive *ABN* (07/19/24 6:50 AM) Invalid Interpretation Code Negative AO Auto Urine SS UA pH 5.0 (07/19/24 6:50 AM) Normal 5.0 - 8.0 AO Auto Urine SS UA Protein 30 mg/dL Normal Negative AO Auto Urine SS UA RBC None Seen /HPF Normal None Seen AO Auto Urine SS UA Spec Grav 1.025 (07/19/24 6:50 AM) Normal 1.015-1.02 5 AO Auto Urine SS UA Specimen Type Clean Catch (07/19/24 6:50 AM) Normal AO Auto Urine SS UA Squam Epithelial 0-5 /HPF Invalid Interpretation Code None Seen AO Auto Urine SS UA Urobilinogen 1.0 E.U./dL Normal 0.2-1.0 AO Auto Urine SS WBC LM.HPF (Urine sed) [#/Area] 0-5 /HPF Invalid Interpretation Code None Seen AO Auto Urine SS LABORATORYOrdered By: SYSTEM SYSTEM on 07-19-2024 Albumin BCP dye [Mass/Vol] 4.5 G/dL Normal 3.5 - 5.0 G/dL AO ADM SS Albumin/Globulin [Mass ratio] 1.3 {ratio} Normal 1.1 - 2.5 ratio AO ADM SS ALP [Catalytic activity/Vol] 63 U/L Normal 40 - 135 U/L AO ADM SS ALT With P-5'-P [Catalytic activity/Vol] 28 U/L Normal 14 - 59 U/L AO ADM SS AST With P-5'-P [Catalytic activity/Vol] 15 U/L Normal 10 - 40 U/L AO ADM SS Basophils (Bld) [#/Vol] 0.0 103/mcL Normal 0.0 - 0.2 10^3/mcL AO Workflow SS Basophils/100 WBC (Bld) 0.3 % Normal 0.0 - 2.5 % AO Workflow SS Bilirubin [Mass/Vol] 0.5 mg/dL Normal 0.2 - 1 .0 mg/dL AO ADM SS Comment on above: Interpretive Data: U se of this assay is not recommended for patients undergoing treatment with eltrombopag due to the potential for falsely elevated results. Calcium [Mass/Vol] 9.0 mg/dL Normal 8.4 - 10. 2 mg/dL AO ADM SS Chloride [Moles/Vol] 101 mmol/L Normal 98 - 10 7 mmol/L AO ADM SS CO2 [Moles/Vol] 25 mmol/L Normal 22 - 29 mmol/L AO ADM SS Creatinine [Mass/Vol] 1.07 mg/dL High 0.55 - 1.02 mg/dL AO ADM SS Comment on above: Interpretive Data: T esting performed on Siemens Dimension EXL analyzer using a modified kinetic Ale technique. Electrolyte Balance 11.0 mEq/L Normal 4.0 - 15 .0 mEq/L AO ADM SS Eosinophil, Absolute 0.0 103/mcL Normal 0.0 - 0 .7 10^3/mcL AO Workflow SS Eosinophils/100 WBC (Bld) 0.0 % Normal 0.0 - 7.0 % AO Workflow SS Erythrocyte distribution width (RBC) [Ratio] 15.3 % Normal 11.5 - 15.5 % AO Workflow SS GFR/1.73 sq M.predicted among blacks MDRD (S/P/Bld) [Vol rate/Area] 76 ml/min/1.73sqm Invalid Interpretation Code AO Chemistry S Comment on above: Interpretive Data: GFR Population mean for , Non- Americans Ages 20-29 = 116 mL/min/1.73 sq.m. Ages 30-39 = 107 mL/min/1.73 sq.m. Ages 40-49 = 99 mL/min/1.73 sq.m. Ages 50-59 = 93 mL/min/1.73 sq.m. Ages 60-69 = 85 mL/min/1.73 sq.m. Ages 70+ = 75 mL/min/1.73 sq.m. Chronic Kidney Disease: Less than 60 mL/min/1.73 square meters End Stage Renal Disease: Less than 15 mL/min/1.73 square meters GFR/1.73 sq M.predicted among non-blacks MDRD (S/P/Bld) [Vol rate/Area] 63 ml/min/1.73sqm Invalid Interpretation Code AO Chemistry S Comment on above: Interpretive Data: GFR Population mean for , Non- Americans Ages 20-29 = 116 mL/min/1.73 sq.m. Ages 30-39 = 107 mL/min/1.73 sq.m. Ages 40-49 = 99 mL/min/1.73 sq.m. Ages 50-59 = 93 mL/min/1.73 sq.m. Ages 60-69 = 85 mL/min/1.73 sq.m. Ages 70+ = 75 mL/min/1.73 sq.m. Chronic Kidney Disease: Less than 60 mL/min/1.73 square meters End Stage Renal Disease: Less than 15 mL/min/1.73 square meters Globulin 3.5 G/dL Invalid Interpretation Code AO ADM SS Glucose [Mass/Vol] 111 mg/dL High 70 - 105 mg/dL AO ADM SS Hematocrit (Bld) [Volume fraction] 34.7 % Normal 34.0 - 46.0 % AO Workflow SS Hemoglobin (Bld) [Mass/Vol] 11.6 G/dL Low 12.0 - 16.0 G/dL AO Workflow SS Lipase [Catalytic activity/Vol] 24 U/L Normal 16 - 77 U/L AO ADM SS Lymphocytes (Bld) [#/Vol] 1.3 103/mcL Normal 0.9 - 4.3 10^3/mcL AO Workflow SS Lymphocytes/100 WBC (Bld) 11.6 % Low 20.0 - 40.0 % AO Workflow SS MCH (RBC) [Entitic mass] 26.3 pg Low 27. 0 - 33.0 pg AO Workflow SS MCHC 33.3 G/dL Normal 32.0 - 36.0 G/dL AO Workflow SS MCV (RBC) [Entitic vol] 79.1 fL Low 80.0 - 99.0 fL AO Workflow SS Monocyte distribution width Auto (Bld) [Entitic vol] 19.37 1 Normal 0.00 - 20.00 AO Workflow SS Comment on above: Result Comment: For ED adult patients suspected of sepsis, MDW<=20.0 does not rule out sepsis or risk of sepsis Monocytes (Bld) [#/Vol] 0.7 103/mcL Normal 0.1 - 1.4 10^3/mcL AO Workflow SS Monocytes/100 WBC (Bld) 6.4 % Normal 2.0 - 13.0 % AO Workflow SS Neutrophils (Bld) [#/Vol] 8.8 103/mcL High 2.3 - 8.1 10^3/mcL AO Workflow SS Neutrophils/100 WBC (Bld) 81.7 % High 50.0 - 75.0 % AO Workflow SS Platelet mean volume (Bld) [Entitic vol] 6.4 fL Low 6.6 - 10.5 fL AO Workflow SS Platelets (Bld) [#/Vol] 289 103/mcL Normal 150 - 450 10^3/mcL AO Workflow SS Potassium [Moles/Vol] 3.2 mmol/L Low 3.5 - 5.1 mmol/L AO ADM SS Protein [Mass/Vol] 8.0 G/dL Normal 6.4 - 8.2 G/dL AO ADM SS RBC (Bld) [#/Vol] 4.39 106/mcL Normal 4.10 - 5.30 10^6/mcL AO Workflow SS Sodium [Moles/Vol] 137 mmol/L Normal 136 - 145 mmol/L AO ADM SS Urea nitrogen [Mass/Vol] 11 mg/dL Normal 7 - 18 mg/dL AO ADM SS Urea nitrogen/Creatinine [Mass ratio] 10 ratio Normal 7 - 27 ratio AO ADM SS WBC (Bld) [#/Vol] 10.8 103/mcL Normal 4.5 - 10.8 10^3/mcL AO Workflow SS LIPon 07-19-2024 Lipase Level 24 U/L Normal 16-77 [facility] Comment on above: Performed By: #### A DIFF, CMP, GFR, CBC, ANEU, MG, MDW, LIP #### [address] [address] UAon 07-19-2024 Color (U) Superior Abnormal [facility] Comment on above: Performed By: #### A DIFF, CMP, GFR, CBC, ANEU, MG, MDW, LIP #### [address] [address] Glucose (U) [Mass/Vol] 100 mg/dL Abnormal Negative [facility] Comment on above: Performed By: #### A DIFF, CMP, GFR, CBC, ANEU, MG, MDW, LIP #### [address] [address] Ketones Ql (U) >=160 Abnormal Negative [facility] Comment on above: Performed By: #### A DIFF, CMP, GFR, CBC, ANEU, MG, MDW, LIP #### [address] [address] UA Appear Slightly Cloudy Abnormal Clear [facility] Comment on above: Performed By: #### A DIFF, CMP, GFR, CBC, ANEU, MG, MDW, LIP #### [address] [address] UA Bili Small Abnormal Negative [facility] Comment on above: Performed By: #### A DIFF, CMP, GFR, CBC, ANEU, MG, MDW, LIP #### [address] [address] UA Blood Negative Normal Negative [facility] Comment on above: Performed By: #### A DIFF, CMP, GFR, CBC, ANEU, MG, MDW, LIP #### [address] [address] UA Leuk Est Negative Normal Negative [facility] Comment on above: Performed By: #### A DIFF, CMP, GFR, CBC, ANEU, MG, MDW, LIP #### [address] [address] UA Nitrite Positive Abnormal Negative [facility] Comment on above: Performed By: #### A DIFF, CMP, GFR, CBC, ANEU, MG, MDW, LIP #### [address] [address] UA pH 5.0 Normal 5.0 - 8.0 [facility] Comment on above: Performed By: #### A DIFF, CMP, GFR, CBC, ANEU, MG, MDW, LIP #### [address] [address] UA Protein 30 mg/dL Normal Negative [facility] Comment on above: Performed By: #### A DIFF, CMP, GFR, CBC, ANEU, MG, MDW, LIP #### [address] [address] UA Spec Grav 1.025 Normal 1.015-1.02 5 [facility] Comment on above: Performed By: #### A DIFF, CMP, GFR, CBC, ANEU, MG, MDW, LIP #### [address] [address] UA Specimen Type Clean Catch Normal [facility] Comment on above: Performed By: #### A DIFF, CMP, GFR, CBC, ANEU, MG, MDW, LIP #### [id number] [place], [place] [address] UA Urobilinogen 1.0 E.U./dL Normal 0.2-1.0 [facility] Comment on above: Performed By: #### A DIFF, CMP, GFR, CBC, ANEU, MG, MDW, LIP #### [address] [place], [place] [address] Basic Metabolic Profile (BMP )on 07-18-2024 BUN/CRE 11.6 RATIO Normal 10-20 [facility] Comment on above: Performed By: #### L 500.2500 ####[facility] [address] [place], [address] CA,Total 9.5 mg/dL Normal 8.5-10.1 [facility] Comment on above: Performed By: #### L 500.2500 ####[facility] [address] [place], [address] Chloride [Moles/Vol] 106 mmol/L Normal 98-107 [facility] Comment on above: Performed By: #### L 500.2500 ####[facility] [address] [place], [address] CO2 [Moles/Vol] 23.0 mmol/L Normal 21.0-32.0 [facility] Comment on above: Performed By: #### L 500.2500 ####[facility] [address] [place], [address] Creatinine [Mass/Vol] 1.21 mg/dL High 0.55-1.02 [facility] Comment on above: Result Comment: The validity of the calculated GFR GFRAA in patients over 70 years has not been determined. Clinical correlation is essential. Performed By: #### L 500.2500 ####[facility] [address] [place], [address] ECRCL 93.29 ml/min Normal [facility] Comment on above: Performed By: #### L 500.2500 ####[facility] [address] [place], [address] EST GFR - AA 70 mL/min Normal >60 [facility] Comment on above: Result Comment: Afri can [place] GFR Calc Performed By: #### L 500.2500 ####[facility] [address] [place], [address] GAP 12 Normal 5-15 [facility] Comment on above: Performed By: #### L 500.2500 ####[facility] [address] [place], [address] GFR/1.73 sq M.predicted among non-blacks MDRD (S/P/Bld) [Vol rate/Area] 58 mL/min/{1.73_m2} Low >60 [facility] Comment on above: Result Comment: Non- GFR Calc Performed By: #### L 500.2500 ####[facility] [address] [place], [address] Glucose [Mass/Vol] 115 mg/dL High 74-106 [facility] Comment on above: Result Comment: Fast ing Glucose result from 100 to 125 mg/dL suggests IMPAIRED HOMEOSTASIS per A.D.A. criteria. Performed By: #### L 500.2500 ####[facility] [address] [place], [address] Potassium [Moles/Vol] 3.3 mmol/L Low 3.5-5.1 [facility] Comment on above: Performed By: #### L 500.2500 ####[facility] [address] [place], [address] Sodium [Moles/Vol] 141 mmol/L Normal 136-145 [facility] Comment on above: Performed By: #### L 500.2500 ####[facility] [address] [place], [address] Urea nitrogen [Mass/Vol] 14 mg/dL Normal 7-18 [facility] Comment on above: Performed By: #### L 500.2500 ####[facility] [address] [place], [address] Emergency Department Summary on 07-18-2024 Emergency Department Summary [facility] Medical Records Department [address] [place] [address] Emergency Department Summary 07/18/24 MR#: [id number] Acct: [id number] Name: ADDIS TORRES Rep #: [id number] : 2000 24 From: Jamey Henriquez MD PCP: Dr. Tj Willams MD Status:REG ER Location: ED HPI History of Present Illness Chief Complaint: Abd Pain Detail of Chief Complaint: Abdominal pain upper quadrants with nausea and vomiting Informant: patient Onset/Context/Timing Onset: Today and Yesterday Context: Sudden Onset Timing: Continuous and Waxes and wanes Quality: Sharp Location: Right and left upper quadrant Current Severity: Moderate Maximum Severity: Severe Worsened by: Nothing Relieved by: Nothing Associated Symptoms Associated Symptoms: Nausea and vomiting Narrative Narrative: Patient is a 24-year-old female. She has history of gastric paresis. This is apparently the cause of her nausea vomiting abdominal pain. She has a remote history of marijuana use. She was seen yesterday. Dr. Felton Stubbs's note was reviewed. She denies fever, chills night sweats. She denies weight gain or weight loss. She denies headache, double vision blurred vision loss of vision. Eyes ringing or ears. She has trouble with speech or swallowing. She denies paresthesia, anesthesia or motor weakness. She denies intolerance to greasy or fried foods. There is no history of pancreatitis. She does have a history of depression based on medications. She was prescribed metoclopramide. She is not taking it since she states it does not work . Prior similar symptoms: Yes Recent Ill[facility] Medical History Gastroparesis Cyclic vomiting syndrome History of alcohol abuse Ureteral stricture, left Retained ureteral stent Hypertension Depression Ureterolithiasis Ureter injury Non-smoker Endometrial cancer PCOS (polycystic ovarian syndrome) Home Medications ???Medication ???Instructions ???Recorded ???Last Taken ???Type acetaminophen 500 mg capsule 1,000 mg (2 x 500 mg) PO Q8H PRN 12/26/22 Unknown Rx PRN pain #60 caps amitriptyline 10 mg tablet 10 mg PO QHS #30 TABLETS 04/28/24 Unknown Rx metoclopramide HCl 5 mg/5 mL oral 10 mg (10 mL) PO TID #1,000 mL 04/28/24 Unknown Rx solution ondansetron 4 mg disintegrating 4 mg PO Q6H PRN nausea and 04/28/24 Unknown Rx tablet vomiting #20 tabs pantoprazole 40 mg tablet,delayed 40 mg PO BID #60 TABLETS 04/28/24 Unknown Rx release gabapentin 100 mg capsule 200 mg (2 x 100 mg) PO TID #180 05/24/24 Unknown Rx caps Allergy/AdvReac Type Severity Reaction Status Date / Time ceftriaxone (From Rocephin) Allergy Hives Verified 06/01/23 10:32 promethazine (From Phenergan) Allergy Vomiting Verified 06/01/23 10:32 Ringer's solution,lactated Allergy Hives Verified 06/01/23 10:32 Family History Father No problems noted. Mother Anxiety and depression GERD (gastroesophageal reflux disease) Surgical History History of renal stent History of hysterectomy for cancer Social History household members: family Smoking Status: Never smoker alcohol intake: former substance use type: marijuana and other details: No marijuana use in the last month ROS ROS ED Constitutional Constitutional ED: Denies chills, fever(s), subjective, sweats or weight loss Eyes Eyes: Denies blurry vision, change in vision or diplopia ENT ENT ED: Denies ear pain, rhinorrhea or sore throat Cardiovascular Cardiovascular: Denies chest pain or palpitations Respiratory/Chest Respiratory/Chest: Denies cough, dyspnea or dyspnea on exertion Gastrointestinal Gastrointestinal: Reports abdominal pain, nausea, vomiting and other Details: Denies hematemesis or coffee-ground emesis. ; Denies constipation, diarrhea or melena Genitourinary Genitourinary ED: Reports dysuria; Denies hematuria or urinary frequency Musculoskeletal Musculoskeletal: Denies arthralgias, back pain or myalgias Integumentary Denies Abrasions or rash Neurologic Neurologic: Reports weakness; Denies headache(s) or paresthesias Psychiatric Psychiatric: Reports anxiety and depression; Denies suicidal ideation or suicidal thoughts Hematologic/Lymphatic Hematologic/Lymphatic: Reports systems reviewed and no addt'l complaints, except as documented EXAM Physical Exam Const Vital Signs: 07/18/24 17:43 07/18/24 19:02 07/18/24 20:49 Temperature 98.1 F Temperature Source Temporal Pulse Rate 109 H 74 115 H Respiratory Rate 16 16 18 Blood Pressure 150/115 H 154/107 H 140/98 H Blood Pressure Mean 126 122 112 (more content not included)... Normal [facility] Urinalysis, Completeon 07-18 BACTERIA 1+ /hpf Normal None Seen [facility] Comment on above: Order Comment: CLEAN CATCH Performed By: #### L 400.0001 ####[facility] [address] [place], [place], [id number] EPI,SQUAMOUS 0-5 SEEN Normal 5-10 [facility] Comment on above: Order Comment: CLEAN CATCH Performed By: #### L 400.0001 ####[facility] [address] [place], [place], [phone] WBC 0-5 SEEN Normal 0-5 [facility] Comment on above: Order Comment: CLEAN CATCH Performed By: #### L 400.0001 ####[facility] [address] [place], [address] Mucus Ql (Urine sed) 0 SEEN Normal [facility] Comment on above: Order Comment: CLEAN CATCH Performed By: #### L 400.0001 ####[facility] [address] [place], [address] RBC 0 SEEN Normal 0-5 [facility] Comment on above: Order Comment: CLEAN CATCH Performed By: #### L 400.0001 ####[facility] [address] [place] [address] Urine Drug Screen (VISTA)on 07-18-2024 AMPHETAMINES Negative Normal <1000 ng/mL [facility] Comment on above: Performed By: #### L 505.5000 ####[facility] [address] [place] [address] BARBITIURATES Negative Normal < 200 ng/mL [facility] Comment on above: Performed By: #### L 505.5000 ####[facility] [address] [place] [address] BENZODIAZIPINE Negative Normal < 200 ng/mL [facility] Comment on above: Performed By: #### L 505.5000 ####[facility] [address] [place] [address] COCAINE Negative Normal < 300 ng/mL [facility] Comment on above: Performed By: #### L 505.5000 ####[facility] [address] [place] [address] ECSTACY Negative Normal < 500 ng/mL [facility] Comment on above: Performed By: #### L 505.5000 ####[facility] [address] [place] [address] METHADONE Negative Normal < 300 ng/mL [facility] Comment on above: Performed By: #### L 505.5000 ####[facility] [address] [place] [address] OPIATES Negative Normal < 300 ng/mL [facility] Comment on above: Performed By: #### L 505.5000 ####[facility] [address] [place] [address] PCP Negative Normal < 25 ng/mL [facility] Comment on above: Performed By: #### L 505.5000 ####[facility] [address] [place], [address] THC Positive Abnormal < 50 ng/mL [facility] Comment on above: Performed By: #### L 505.5000 ####[facility] [address] [place], [address] VISTA UDS PH 5 Normal [facility] Comment on above: Performed By: #### L 505.5000 ####[facility] [address] [place], [address] Basic Metabolic Profile (BMP )on 07-17-2024 BUN/CRE 9.3 RATIO Low 10- [facility] Comment on above: Performed By: #### L 100.0100, L500.3400, L501.2450, L500.2500 ####[facility] [address] [place], [address] CA,Total 9.8 mg/dL Normal 8.5-10.1 [facility] Comment on above: Performed By: #### L 100.0100, L500.3400, L501.2450, L500.2500 ####[facility] [address] [place], [address] Chloride [Moles/Vol] 107 mmol/L Normal 98-107 [facility] Comment on above: Performed By: #### L 100.0100, L500.3400, L501.2450, L500.2500 ####[facility] [address] [place], [address] CO2 [Moles/Vol] 22.0 mmol/L Normal 21.0-32.0 [facility] Comment on above: Performed By: #### L 100.0100, L500.3400, L501.2450, L500.2500 ####[facility] [address] [place], [address] Creatinine [Mass/Vol] 0.97 mg/dL Normal 0.55-1.02 [facility] Comment on above: Result Comment: The validity of the calculated GFR GFRAA in patients over 70 years has not been determined. Clinical correlation is essential. Performed By: #### L 100.0100, L500.3400, L501.2450, L500.2500 ####[facility] [address] [place], [address] ECRCL 117.66 ml/min Normal [facility] Comment on above: Performed By: #### L 100.0100, L500.3400, L501.2450, L500.2500 ####[facility] [address] [place], [address] EST GFR - AA 91 mL/min Normal >60 [facility] Comment on above: Result Comment: Afri can [place] GFR Calc Performed By: #### L 100.0100, L500.3400, L501.2450, L500.2500 ####[facility] [address] [place], [address] GAP 9 Normal 5-15 [facility] Comment on above: Performed By: #### L 100.0100, L500.3400, L501.2450, L500.2500 ####[facility] [address] [place], [address] GFR/1.73 sq M.predicted among non-blacks MDRD (S/P/Bld) [Vol rate/Area] 75 mL/min/{1.73_m2} Normal >60 [facility] Comment on above: Result Comment: Non- GFR Calc Performed By: #### L 100.0100, L500.3400, L501.2450, L500.2500 ####[facility] [address] [place], [address] Glucose [Mass/Vol] 109 mg/dL High 74-106 [facility] Comment on above: Result Comment: Fast ing Glucose result from 100 to 125 mg/dL suggests IMPAIRED HOMEOSTASIS per A.D.A. criteria. Performed By: #### L 100.0100, L500.3400, L501.2450, L500.2500 ####[facility] [address] [place], [address] Potassium [Moles/Vol] 3.7 mmol/L Normal 3.5-5.1 [facility] Comment on above: Result Comment: Slig ht Hemolysis, Result may be falsely increased. Performed By: #### L 100.0100, L500.3400, L501.2450, L500.2500 ####[facility] [address] [place], [address] Sodium [Moles/Vol] 138 mmol/L Normal 136-145 [facility] Comment on above: Performed By: #### L 100.0100, L500.3400, L501.2450, L500.2500 ####[facility] [address] [place], [address] Urea nitrogen [Mass/Vol] 9 mg/dL Normal 7-18 [facility] Comment on above: Performed By: #### L 100.0100, L500.3400, L501.2450, L500.2500 ####[facility] [address] [place], [address] CBC W/Diff, Automatedon 11- 0-2023 Absolute Lymph 1.84 X10 3/uL Normal 0.83-4.51 [facility] Comment on above: Performed By: #### L 100.0100, L500.3400, L501.2450, L500.2500 ####[facility] [address] [place], [address] Absolute Neut 7.7 X10 3/uL Normal 2.0-7.7 [facility] Comment on above: Performed By: #### L 100.0100, L500.3400, L501.2450, L500.2500 ####[facility] [address] [place], [address] Basophils/100 WBC (Bld) 0.6 % Normal 0-1 [facility] Comment on above: Performed By: #### L 100.0100, L500.3400, L501.2450, L500.2500 ####[facility] [address] [place], [address] Eosinophils/100 WBC (Bld) 1.7 % Normal 0-5 [facility] Comment on above: Performed By: #### L 100.0100, L500.3400, L501.2450, L500.2500 ####[facility] [address] [place], [address] Erythrocyte distribution width (RBC) [Ratio] 14.3 % Normal 11.6-14.6 [facility] Comment on above: Performed By: #### L 100.0100, L500.3400, L501.2450, L500.2500 ####[facility] [address] [place], [address] Hematocrit (Bld) [Volume fraction] 40.2 % Normal 37-47 [facility] Comment on above: Performed By: #### L 100.0100, L500.3400, L501.2450, L500.2500 ####[facility] [address] [place], [address] Hemoglobin (Bld) [Mass/Vol] 13.0 g/dL Normal 12.0-15.0 [facility] Comment on above: Performed By: #### L 100.0100, L500.3400, L501.2450, L500.2500 ####[facility] [address] [place], [address] IG% 0.500 Normal 0.0-0.9 [facility] Comment on above: Result Comment: IG% - Immature Granulocytes (promyelocytes, myelocytes and metamyelocytes) > 1% indicates that a LEFT SHIFT is Present. Performed By: #### L 100.0100, L500.3400, L501.2450, L500.2500 ####[facility] [address] [place], [address] Lymphocytes/100 WBC (Bld) 17.9 % Low 19-41 [facility] Comment on above: Performed By: #### L 100.0100, L500.3400, L501.2450, L500.2500 ####[facility] [address] [place], [address] MCH (RBC) [Entitic mass] 25.5 pg Low 27.0-32.0 [facility] Comment on above: Performed By: #### L 100.0100, L500.3400, L501.2450, L500.2500 ####[facility] [address] [place], [address] MCHC (RBC) [Mass/Vol] 32.3 g/dL Normal 32-36 [facility] Comment on above: Performed By: #### L 100.0100, L500.3400, L501.2450, L500.2500 ####[facility] [address] [place], [address] MCV (RBC) [Entitic vol] 79.0 fL Low 81-99 [facility] Comment on above: Performed By: #### L 100.0100, L500.3400, L501.2450, L500.2500 ####[facility] [address] [place], [address] Monocytes/100 WBC (Bld) 4.6 % Normal 0-10 [facility] Comment on above: Performed By: #### L 100.0100, L500.3400, L501.2450, L500.2500 ####[facility] [address] [place], [address] Neutrophils/100 WBC (Bld) 74.7 % High 47-70 [facility] Comment on above: Performed By: #### L 100.0100, L500.3400, L501.2450, L500.2500 ####[facility] [address] [place], [address] Nucleated RBC (Bld) [#/Vol] 0 10*3/uL Normal 0-5 [facility] Comment on above: Performed By: #### L 100.0100, L500.3400, L501.2450, L500.2500 ####[facility] [address] [place], [address] Platelet mean volume (Bld) [Entitic vol] 9.2 fL Normal 6.2-12.0 [facility] Comment on above: Performed By: #### L 100.0100, L500.3400, L501.2450, L500.2500 ####[facility] [address] [place], [address] Platelets (Bld) [#/Vol] 336 10*3/uL Normal 150-450 [facility] Comment on above: Performed By: #### L 100.0100, L500.3400, L501.2450, L500.2500 ####[facility] [address] [place], [address] RBC (Bld) [#/Vol] 5.09 10*6/uL Normal 4.2-5.4 [facility] Comment on above: Performed By: #### L 100.0100, L500.3400, L501.2450, L500.2500 ####[facility] [address] [place], [address] RDW SD 40.3 fl Normal 35.1-43.9 [facility] Comment on above: Performed By: #### L 100.0100, L500.3400, L501.2450, L500.2500 ####[facility] [address] [place], [address] WBC (Bld) [#/Vol] 10.3 10*3/uL Normal 4.4-11.0 [facility] Comment on above: Performed By: #### L 100.0100, L500.3400, L501.2450, L500.2500 ####[facility] [address] [place], [address] Emergency Department Summary on 07-17-2024 Emergency Department Summary [facility] Medical Records Department [address] [place] [address] Emergency Department Summary 07/17/24 MR#: [id number] Acct: [id number] Name: ADDIS TORRES Rep #: [id number] : 2000 24 From: Rei Tatum DO PCP: Dr. Tj Willams MD Status:DEP ER Location: ED HPI History of Present Illness Chief Complaint: Abd Pain Informant: patient and parent Narrative Narrative: 24-year-old female presenting to the emergency room with a chief complaint of vomiting. Patient states that she began vomiting last night around 2200 hrs. She states it has been persistent. She states she had a normal bowel movement yesterday. She states that she sees Friend has been diagnosed with gastroparesis. She states it has been 5 to 6 months since her last episode of vomiting like this. Looking at her chart she was seen in the end of May for the same. She notes epigastric pain which she states is typical when she has these episodes. There is a history of remote cannabis use but none since. She did have EGD that showed some erosive esophagitis and continues on pantoprazole. Patient denies any fevers. She notes a remote history of endometrial cancer and PCOS [facility] Medical History Cyclic vomiting syndrome Depression Endometrial cancer Gastroparesis History of alcohol abuse Hypertension Non-smoker PCOS (polycystic ovarian syndrome) Retained ureteral stent Ureter injury Ureteral stricture, left Ureterolithiasis Home Medications ???Medication ???Instructions ???Recorded ???Last Taken ???Type acetaminophen 500 mg capsule 1,000 mg (2 x 500 mg) PO Q8H PRN 12/26/22 Unknown Rx PRN pain #60 caps amitriptyline 10 mg tablet 10 mg PO QHS #30 TABLETS 04/28/24 Unknown Rx metoclopramide HCl 5 mg/5 mL oral 10 mg (10 mL) PO TID #1,000 mL 04/28/24 Unknown Rx solution ondansetron 4 mg disintegrating 4 mg PO Q6H PRN nausea and 04/28/24 Unknown Rx tablet vomiting #20 tabs pantoprazole 40 mg tablet,delayed 40 mg PO BID #60 TABLETS 04/28/24 Unknown Rx release gabapentin 100 mg capsule 200 mg (2 x 100 mg) PO TID #180 05/24/24 Unknown Rx caps Allergy/AdvReac Type Severity Reaction Status Date / Time ceftriaxone (From Rocephin) Allergy Hives Verified 06/01/23 10:32 promethazine (From Phenergan) Allergy Vomiting Verified 06/01/23 10:32 Ringer's solution,lactated Allergy Hives Verified 06/01/23 10:32 Family History Father No problems noted. Mother Anxiety and depression GERD (gastroesophageal reflux disease) Surgical History History of hysterectomy for cancer History of renal stent Social History household members: family Smoking Status: Never smoker alcohol intake: former substance use type: marijuana and other details: No marijuana use in the last month ROS ROS ED Constitutional Constitutional ED: Denies chills, fever(s) or weight loss Eyes Eyes: Denies change in vision or diplopia ENT ENT ED: Denies ear pain, rhinorrhea or sore throat Cardiovascular Cardiovascular: Denies chest pain, orthopnea, palpitations or racing heartbeat Respiratory/Chest Respiratory/Chest: Denies cough, dyspnea or orthopnea Gastrointestinal Gastrointestinal: Reports abdominal pain, nausea and vomiting; Denies diarrhea Genitourinary Genitourinary ED: Denies dysuria, hematuria or urinary frequency Musculoskeletal Musculoskeletal: Denies arthralgias or myalgias Integumentary Denies abscess or rash Neurologic Neurologic: Denies headache(s) or weakness Psychiatric Psychiatric: Denies anxiety, depression, suicidal ideation or suicidal thoughts Endocrine Endocrinology: Denies polydipsia, polyphagia or polyuria Allergic/Immunologic Allergic/Immunologic ED: Denies mouth swelling, tongue swelling or urticaria EXAM Physical Exam Const Vital Signs: 07/17/24 09:51 07/17/24 09:52 07/17/24 10:52 Temperature 98.6 F Temperature Source Temporal Pulse Rate 105 H 96 101 H Respiratory Rate 20 H 18 18 Blood Pressure 168/113 H 153/95 H 154/104 H Blood Pressure Mean 131 114 120 Pulse Ox 100 97 100 Oxygen Delivery Method Room Air Room Air 07/17/24 11:00 07/17/24 12:00 07/17/24 13:00 Temperature Temperature Source Pulse Rate 112 H 109 H 99 Respiratory Rate 18 18 16 Blood Pressure 160/109 H 160/103 H 142/99 H Blood Pressure Mean 126 122 113 Pulse Ox 99 99 98 Oxygen Delivery Method Room Air Room Air 07/17/24 13:16 Temperature 97.9 F Temperature Source Pulse Rate 99 Respiratory Rate 16 Blood Pressure 142/99 H Blood Pressure Mean 113 Pu (more content not included)... Normal [facility] Lipaseon 07-17-2024 Lipase [Catalytic activity/Vol] 29 U/L Normal 13-75 [facility] Comment on above: Result Comment: Isak medina note: LIPASE revised reference range effective 22. New Lipase methodology. Expected to produce lower values than the previous assay method. NEW Reference Range: 13 - 75 U/L Performed By: #### L 100.0100, L500.3400, L501.2450, L500.2500 ####[facility] [address] [place], [address] Liver Profileon 07-17-2024 Albumin [Mass/Vol] 4.2 g/dL Normal 3.2-5.0 [facility] Comment on above: Performed By: #### L 100.0100, L500.3400, L501.2450, L500.2500 ####[facility] [address] [place], [address] ALK P 68 U/L Normal 45-117 [facility] Comment on above: Performed By: #### L 100.0100, L500.3400, L501.2450, L500.2500 ####[facility] [address] [place], [address] ALT [Catalytic activity/Vol] 21 U/L Normal 13-56 [facility] Comment on above: Performed By: #### L 100.0100, L500.3400, L501.2450, L500.2500 ####[facility] [address] [place], [address] AST [Catalytic activity/Vol] 19 U/L Normal 15-37 [facility] Comment on above: Result Comment: Slig ht Hemolysis, Result may be falsely increased. Performed By: #### L 100.0100, L500.3400, L501.2450, L500.2500 ####[facility] [address] [place], [address] Bilirubin [Mass/Vol] 0.30 mg/dL Normal 0.20-1.00 [facility] Comment on above: Result Comment: For patients on eltrombopag therapy, use of Dimension [place] TBIL is not recommended. Performed By: #### L 100.0100, L500.3400, L501.2450, L500.2500 ####[facility] [address] [place], [address] Bilirubin.direct [Mass/Vol] 0.08 mg/dL Normal 0.00-0.30 [facility] Comment on above: Performed By: #### L 100.0100, L500.3400, L501.2450, L500.2500 ####[facility] [address] [place], [address] Globulin (S) [Mass/Vol] 4.6 g/dL High 2.2-4.2 [facility] Comment on above: Performed By: #### L 100.0100, L500.3400, L501.2450, L500.2500 ####[facility] [address] [place], [address] T PROT 8.8 g/dL High 6.4-8.2 [facility] Comment on above: Performed By: #### L 100.0100, L500.3400, L501.2450, L500.2500 ####[facility] [address] [place], [address] Absolute lymphocyte countOrd ered By: Kevin San on 06-01-2023 Lymphocytes Auto (Unsp spec) [#/Vol] 0.83 10*3/uL 0.83-4.51 [facility] Basophil percentageOrdered B y: Kevin San on 06-01-2023 Basophils/100 WBC (Bld) 0.2 % 0-1 [facility] Bilirubin [Mass/Vol] 0.30 mg/dL 0.20-1.00 [facility] Comment on above: For patients on eltr ombopag therapy, use of Dimension [place] TBIL is not recommended. Chloride [Moles/Vol] 106 mmol/L 98-107 [facility] Eosinophils/100 WBC (Bld) 0.1 % 0-5 [facility] Glucose [Mass/Vol] 152 mg/dL 74-106 [facility] Comment on above: Fasting Glucose resu lt greater than or equal to 126 mg/dL suggests DIABETES MELLITUS per A.D.A. criteria. Neutrophils (Bld) [#/Vol] 11.3 10*3/uL 2.0-7.7 [facility] Neutrophils/100 WBC (Bld) 90.6 % 47-70 [facility] Potassium [Moles/Vol] 3.5 mmol/L 3.5-5.1 [facility] Protein [Mass/Vol] 8.6 g/dL 6.4-8.2 [facility] Sodium [Moles/Vol] 136 mmol/L 136-145 [facility] WBC (Bld) [#/Vol] 12.5 10*3/uL 4.4-11.0 [facility] Blood erythrocytes count (nu mber/volume)Ordered By: Kevin San on 06-01-2023 RBC (Bld) [#/Vol] 4.90 10*6/uL 4.2-5.4 [facility] Blood hemoglobin measurement (mass/volume)Ordered By: Kevin San on 06-01-2023 Hemoglobin (Bld) [Mass/Vol] 13.1 g/dL 12.0-15.0 [facility] Blood lymphocytes/100 leukoc ytesOrdered By: Kevin San on 06-01-2023 Lymphocytes/100 WBC (Bld) 6.7 % 19-41 [facility] Blood monocytes/100 leukocyt esOrdered By: Kevin San on 06-01-2023 Monocytes/100 WBC (Bld) 2.1 % 0-10 [facility] Blood platelet mean volumeOr dered By: Kevin San on 06-01-2023 Platelet mean volume (Bld) [Entitic vol] 9.1 fL 6.2-12.0 [facility] Determination of erythrocyte mean corpuscular volume (MCV)Ordered By: Keivn San on 06-01-2023 MCV (RBC) [Entitic vol] 82.4 fL 81-99 [facility] Hematocrit Auto (Bld) [Volum e fraction]Ordered By: Kevin San on 06-01-2023 Hematocrit (Bld) [Volume fraction] 40.4 % 37-47 [facility] Laboratory - Chemistry and C hemistry - challengeOrdered By: Kevin San on 06-01-2023 ALP [Catalytic activity/Vol] 65 U/L 45-117 [facility] ALT [Catalytic activity/Vol] 27 U/L 13-56 [facility] CO2 [Moles/Vol] 21.0 mmol/L 21.0-32.0 [facility] Globulin (S) [Mass/Vol] 4.5 g/dL 2.2-4.2 [facility] Lipase [Catalytic activity/Vol] 25 U/L 13-75 [facility] Comment on above: Please note:LIPASE r evised reference range effective 22. New Lipase methodology. Expected to produce lower values than the previous assay method. NEW Reference Range: 13 - 75 U/L Urea nitrogen/Creatinine [Mass ratio] 9.8 mg/mg 10-20 [facility] Laboratory - Hematology and Cell countsOrdered By: Kevin San on 06-01-2023 Erythrocyte distribution width (RBC) [Entitic vol] 38.5 fL 35.1-43.9 [facility] Erythrocyte distribution width (RBC) [Ratio] 13.0 % 11.6-14.6 [facility] Immature granulocytes/100 WBC (Bld) 0.300 % 0.0-0.9 [facility] Comment on above: IG% - Immature Granu locytes (promyelocytes, myelocytes and metamyelocytes) > 1% indicates that a LEFT SHIFT is Present. MCH (RBC) [Entitic mass] 26.7 pg 27.0-32.0 [facility] Nucleated RBC/100 WBC (Bld) [Ratio] 0 % 0-5 [facility] MCHC Auto (RBC) [Mass/Vol]Or dered By: Kevin San on 06-01-2023 MCHC (RBC) [Mass/Vol] 32.4 g/dL 32-36 [facility] No Panel InformationOrdered By: Kevin San on 06-01-2023 Estimated GFR (MDRD) Amer 86 mL/min >60 [facility] Comment on above: GFR Calc Estimated GFR (MDRD) Non-Af Amer 71 mL/min >60 [facility] Comment on above: Non- GFR Calc Platelets bldOrdered By: Wanda San on 06-01-2023 Platelets (Bld) [#/Vol] 284 10*3/uL 150-450 [facility] Serum or plasma albumin justice urement (mass/volume)Ordered By: Kevin San on 06-01-2023 Albumin [Mass/Vol] 4.1 g/dL 3.2-5.0 [facility] Serum or plasma albumin/glob ulin mass ratioOrdered By: Kevin San on 06-01-2023 Albumin/Globulin [Mass ratio] 0.9 {ratio} 0.9-2.4 [facility] Serum or plasma calcium justice urement (mass/volume)Ordered By: Kevin San on 06-01-2023 Calcium [Mass/Vol] 9.3 mg/dL 8.5-10.1 [facility] Serum or plasma creatinine m easurement (mass/volume)Ordered By: Kevin San on 06-01-2023 Creatinine [Mass/Vol] 1.02 mg/dL 0.55-1.02 [facility] Comment on above: The validity of the calculated GFR & GFRAA in patients over 70 years has not been determined. Clinical correlation is essential. Serum or plasma urea nitroge n measurement (mass/volume)Ordered By: Kevin San on 06-01-2023 Urea nitrogen [Mass/Vol] 10 mg/dL 7-18 [facility] Thin prep Papanicolaou smear with manual screeningOrdered By: Kevin San on 06-01-2023 Thin prep Papanicolaou smear with manual screening 13 U/L 15-37 [facility] Thin prep Papanicolaou smear with manual screening 9 5-15 [facility] XR FINGER THUMB 3 VIEWS LEFT on 02-26-2023 XR FINGER THUMB 3 VIEWS LEFT ORIGINAL EXAMINATION: THREE XRAY VIEWS OF THE LEFT THUMB 02/26/2023 3:38 pm COMPARISON: None. HISTORY: ORDERING SYSTEM PROVIDED HISTORY: Reason for Exam: pain Cat bite 2 days ago, bruising and swelling no proximal thumb FINDINGS: No acute fracture or dislocation. Small focal soft tissue swelling over the radial surface of the 1st metacarpal head region is without subcutaneous emphysema. Included Articulations are maintained. IMPRESSION: No acute bony abnormality. Small external injury near the radial surface of the 1st metacarpal head region. Interpreted by: Rafael Bean DO Preliminary Report By: Rafael Bean DO Electronically signed By Rafael Bean DO Dictated Date: 02/26/2023 3:45:30 PM Prelim Date: 02/26/2023 3:47:36 PM Sign Date: 02/26/2023 3:47:36 PM Ordering Provider: STANFORD Arenas Count Includes [facility] ([place]) Basophil percentageOrdered B y: Dr. Marquez on 12-25-2022 Chloride [Moles/Vol] 109 mmol/L 98-107 [facility] Glucose [Mass/Vol] 126 mg/dL 74-106 [facility] Comment on above: Fasting Glucose resu lt greater than or equal to 126 mg/dL suggests DIABETES MELLITUS per A.D.A. criteria. Potassium [Moles/Vol] 3.9 mmol/L 3.5-5.1 [facility] Sodium [Moles/Vol] 135 mmol/L 136-145 [facility] Laboratory - Chemistry and C hemistry - challengeOrdered By: Dr. Marquez on 12-25-2022 CO2 [Moles/Vol] 21.0 mmol/L 21.0-32.0 [facility] Urea nitrogen/Creatinine [Mass ratio] 6.6 mg/mg - [facility] No Panel InformationOrdered By: Dr. Marquez on 12-25-2022 Estimated Creatinine Clearance Calc 122.96 ml/min [facility] Estimated GFR (MDRD) Amer 123 mL/min >60 [facility] Comment on above: GFR Calc Estimated GFR (MDRD) Non-Af Amer 102 mL/min >60 [facility] Comment on above: Non- GFR Calc Serum or plasma calcium justice urement (mass/volume)Ordered By: Dr. Marquez on 12-25-2022 Calcium [Mass/Vol] 9.3 mg/dL 8.5-10.1 [facility] Serum or plasma creatinine m easurement (mass/volume)Ordered By: Dr. Marquez on 12-25-2022 Creatinine [Mass/Vol] 0.75 mg/dL 0.55-1.02 [facility] Comment on above: The validity of the calculated GFR & GFRAA in patients over 70 years has not been determined. Clinical correlation is essential. Serum or plasma urea nitroge n measurement (mass/volume)Ordered By: Dr. Marquez on 12-25-2022 Urea nitrogen [Mass/Vol] 5 mg/dL 7-18 [facility] Thin prep Papanicolaou smear with manual screeningOrdered By: Dr. Marquez on 12-25-2022 Thin prep Papanicolaou smear with manual screening 5 5-15 [facility] Absolute lymphocyte countOrd ered By: Dr. Reid on 12-24-2022 Lymphocytes Auto (Unsp spec) [#/Vol] 2.25 10*3/uL 0.83-4.51 [facility] Basophil percentageOrdered B y: Dr. Reid on 12-24-2022 Basophil percentage 2.9 mg/dL 2.5-4.9 [facility] Basophils/100 WBC (Bld) 0.2 % 0-1 [facility] Bilirubin [Mass/Vol] 0.40 mg/dL 0.20-1.00 [facility] Comment on above: For patients on eltr ombopag therapy, use of Dimension [place] TBIL is not recommended. Eosinophils/100 WBC (Bld) 0.4 % 0-5 [facility] Neutrophils (Bld) [#/Vol] 6.2 10*3/uL 2.0-7.7 [facility] Neutrophils/100 WBC (Bld) 66.9 % 47-70 [facility] Protein [Mass/Vol] 6.7 g/dL 6.4-8.2 [facility] WBC (Bld) [#/Vol] 9.3 10*3/uL 4.4-11.0 [facility] Blood erythrocytes count (nu mber/volume)Ordered By: Dr. Reid on 12-24-2022 RBC (Bld) [#/Vol] 4.21 10*6/uL 4.2-5.4 [facility] Blood hemoglobin measurement (mass/volume)Ordered By: Dr. Reid on 12-24-2022 Hemoglobin (Bld) [Mass/Vol] 11.4 g/dL 12.0-15.0 [facility] Blood lymphocytes/100 leukoc ytesOrdered By: Dr. Reid on 12-24-2022 Lymphocytes/100 WBC (Bld) 24.3 % 19-41 [facility] Blood monocytes/100 leukocyt esOrdered By: Dr. Reid on 12-24-2022 Monocytes/100 WBC (Bld) 8.0 % 0-10 [facility] Blood platelet mean volumeOr dered By: Dr. Reid on 12-24-2022 Platelet mean volume (Bld) [Entitic vol] 9.0 fL 6.2-12.0 [facility] Determination of erythrocyte mean corpuscular volume (MCV)Ordered By: Dr. Reid on 12-24-2022 MCV (RBC) [Entitic vol] 84.6 fL 81-99 [facility] Hematocrit Auto (Bld) [Volum e fraction]Ordered By: Dr. Reid on 12-24-2022 Hematocrit (Bld) [Volume fraction] 35.6 % 37-47 [facility] Laboratory - Chemistry and C hemistry - challengeOrdered By: Dr. Reid on 12-24-2022 ALP [Catalytic activity/Vol] 45 U/L 45-117 [facility] ALT [Catalytic activity/Vol] 20 U/L 13-56 [facility] Globulin (S) [Mass/Vol] 3.2 g/dL 2.2-4.2 [facility] Magnesium [Mass/Vol] 2.1 mg/dL 1.6-2.6 [facility] Laboratory - Hematology and Cell countsOrdered By: Dr. Reid on 12-24-2022 Erythrocyte distribution width (RBC) [Entitic vol] 46.7 fL 35.1-43.9 [facility] Erythrocyte distribution width (RBC) [Ratio] 15.3 % 11.6-14.6 [facility] Immature granulocytes/100 WBC (Bld) 0.200 % 0.0-0.9 [facility] Comment on above: IG% - Immature Granu locytes (promyelocytes, myelocytes and metamyelocytes) > 1% indicates that a LEFT SHIFT is Present. MCH (RBC) [Entitic mass] 27.1 pg 27.0-32.0 [facility] Nucleated RBC/100 WBC (Bld) [Ratio] 0 % 0-5 [facility] MCHC Auto (RBC) [Mass/Vol]Or dered By: Dr. Reid on 12-24-2022 MCHC (RBC) [Mass/Vol] 32.0 g/dL 32-36 [facility] Platelets bldOrdered By: Dr. Reid on 12-24-2022 Platelets (Bld) [#/Vol] 221 10*3/uL 150-450 [facility] Serum or plasma albumin justice urement (mass/volume)Ordered By: Dr. Reid on 12-24-2022 Albumin [Mass/Vol] 3.5 g/dL 3.2-5.0 [facility] Serum or plasma albumin/glob ulin mass ratioOrdered By: Dr. Reid on 12-24-2022 Albumin/Globulin [Mass ratio] 1.1 {ratio} 0.9-2.4 [facility] Thin prep Papanicolaou smear with manual screeningOrdered By: Dr. Reid on 12-24-2022 Thin prep Papanicolaou smear with manual screening 7 U/L 15-37 [facility] Albumin Elph [Mass/Vol]Order ed By: Corine Combs on 12-23-2022 Albumin [Mass/Vol] 3.8 g/dL 2.9-4.4 [facility] Atypical perinuclear antineu trophil cytoplasmic antibodies measurementOrdered By: Corine Combs on 12-23-2022 Neutrophil cytoplasmic Ab.perinuclear.atypical IF (S) [Titer] <1:20 titer Neg:<1:20 [facility] Comment on above: The atypical pANCA p attern has been observed in asignificant percentage of patients with ulcerative colitis,primary sclerosing cholangitis and autoimmune hepatitis.Performed at: [facility] [id number] Director: Andrew Kwon PhD, Phone: [phone] Basophil percentageOrdered B y: Corine Combs on 12-23-2022 Basophil percentage < 10.0 umol/L 11-32 [facility] Basophil percentage < 0.2 AI 0.0-0.9 [facility] LDH [Catalytic activity/Vol] 171 U/L 84-246 [facility] Basophil percentageOrdered B y: Dr. San on 12-23-2022 Lactate [Moles/Vol] 1.9 mmol/L 0.4-2.0 [facility] Erythrocyte sedimentation ra teOrdered By: Corine Combs on 12-23-2022 ESR (Bld) [Velocity] 15 mm/h 0-30 [facility] Interpretation of serum or p lasma protein pattern by immunofixation (narrative resultOrdered By: Corine Combs on 12-23-2022 Protein Fractions Immunofixation Arley [Interp] See comment [facility] Comment on above: Result: Not Observed Laboratory - Chemistry and C hemistry - challengeOrdered By: Dr. San on 12-23-2022 Lipase [Catalytic activity/Vol] 28 U/L 13-75 [facility] Comment on above: Please note:LIPASE r evised reference range effective 22. New Lipase methodology. Expected to produce lower values than the previous assay method. NEW Reference Range: 13 - 75 U/L No Panel InformationOrdered By: Corine Combs on 12-23-2022 Addendum Document Comment . [facility] Comment on above: Protein electrophore sis scan will follow via computer,mail, or seat maker delivery. [employer] B Antibody <0.2 AI 0.0-0.9 [facility] Immunoglobulin G4 32 mg/dL 2-96 [facility] Insulin Level 23.1 mU/L 2.6-37.6 [facility] PARISH VISITOR Antibody <0.2 AI 0.0-0.9 [facility] Serum DNA double strand anti body assay (units/volume)Ordered By: Corine Combs on 12-23-2022 DNA double strand Ab Qn (S) 1 [IU]/mL 0-9 [facility] Comment on above: Negative <5 Equivoca l 5 - 9 Positive >9 Serum IgG subclass 1 measure ment (mass/volume)Ordered By: Corine Combs on 12-23-2022 IgG subclass 1 (S) [Mass/Vol] 509 mg/dL 248-810 [facility] Serum IgG subclass 2 measure ment (mass/volume)Ordered By: Corine Combs on 12-23-2022 IgG subclass 2 (S) [Mass/Vol] 455 mg/dL 130-555 [facility] Serum IgG subclass 3 measure ment (mass/volume)Ordered By: Corine Combs on 12-23-2022 IgG subclass 3 (S) [Mass/Vol] 25 mg/dL 15-102 [facility] Serum Leeann-1 antibody assay (u nits/volume)Ordered By: Corine Combs on 12-23-2022 Leeann-1 extractable nuclear Ab Qn (S) <0.2 AI 0.0-0.9 [facility] Serum Scl-70 extractable nuc lear antibody assay (units/volume)Ordered By: Corine Combs on 12-23-2022 SCL-70 extractable nuclear Ab Qn (S) <0.2 AI 0.0-0.9 [facility] Serum Rogers extractable nucl ear antibody detectionOrdered By: Corine Combs on 12-23-2022 Rogers extractable nuclear Ab Ql (S) <0.2 AI 0.0-0.9 [facility] Serum [id number] measu rement by electrophoresisOrdered By: Corine Combs on 12-23-2022 Alpha 1 globulin Elph [Mass/Vol] 0.3 g/dL 0.0-0.4 [facility] Alpha 1 globulin Elph [Mass/Vol] 0.8 g/dL 0.4-1.0 [facility] Serum classic neutrophil cyt oplasmic antibody assay (units/volume)Ordered By: Coirne Combs on 12-23-2022 Neutrophil cytoplasmic Ab.classic Qn (S) <1:20 titer Neg:<1:20 [facility] Serum or plasma C reactive p rotein measurement (mass/volume)Ordered By: Corine Combs on 12-23-2022 CRP [Mass/Vol] mg/L 0.0-3.0 [facility] Comment on above: C-Reactive Protein ( CRP) provides useful information for thediagnosis, therapy and monitoring of inflammatory processesand associated diseases. For the evaluation of Relative Riskfor Cardiovascular Disease, a High Sensitivity CRP (HSCRP)should be ordered. Serum or plasma IgA measurem ent (mass/volume)Ordered By: Corine Combs on 12-23-2022 IgA [Mass/Vol] 178 mg/dL 87-352 [facility] Serum or plasma IgG measurem ent (mass/volume)Ordered By: Corine Combs on 12-23-2022 IgG [Mass/Vol] 1034 mg/dL [phone] [facility] IgG [Mass/Vol] Not Reportable [facility] Serum or plasma IgM measurem ent (mass/volume)Ordered By: Corine Combs on 12-23-2022 IgM [Mass/Vol] 213 mg/dL 26-217 [facility] Serum or plasma beta globuli n measurement by electrophoresis (mass/volume)Ordered By: Corine Combs on 12-23-2022 Beta globulin Elph [Mass/Vol] 1.1 g/dL 0.7-1.3 [facility] Serum or plasma gamma globul in measurement by electrophoresis (mass/volume)Ordered By: Corine Combs on 12-23-2022 Gamma globulin Elph [Mass/Vol] 1.1 g/dL 0.4-1.8 [facility] Serum or plasma immunoelectr ophoresis interpretation (nominal result)Ordered By: Corine Combs on 12-23-2022 Interpretation IEP [Interp] Comment . [facility] Comment on above: No monoclonality det ected. Serum perinuclear neutrophil cytoplasmic antibody titer by immunofluorescenceOrdered By: Corine Combs on 12-23-2022 Neutrophil cytoplasmic Ab.perinuclear IF (S) [Titer] <1:20 titer Neg:<1:20 [facility] Comment on above: The presence of posi tive fluorescence exhibiting P-ANCA orC-ANCA patterns alone is not specific for the diagnosis ofWegener's Granulomatosis (WG) or microscopic polyangiitis.Decisions about treatment should not be based solely onANCA IFA results. The [employer] Consensusrecommends follow up testing of positive sera with both SC-3 and MPO-ANCA enzyme immunoassays. As many as 5% serumsamples are positive only by EIA. Ref. AM J Clin [id number];111:507-513. Thin prep Papanicolaou smear with manual screeningOrdered By: Corine Combs on 12-23-2022 Thin prep Papanicolaou smear with manual screening 1.2 0.7-1.7 [facility] Total protein bloodOrdered B y: Corine Combs on 12-23-2022 Protein [Mass/Vol] 7.1 g/dL 6.0-8.5 [facility] Absolute lymphocyte countOrd ered By: Dr. Silva on 12-22-2022 Lymphocytes Auto (Unsp spec) [#/Vol] 1.69 10*3/uL 0.83-4.51 [facility] Basophil percentageOrdered B y: Dr. Silva on 12-22-2022 Basophil percentage 0 SEEN /hpf 0-5 [facility] Lactate [Moles/Vol] 3.2 mmol/L 0.4-2.0 [facility] Comment on above: Critical Result(s) C alled at: 03:09:37 12/22/2022 by: Kory Cota. CALLED TO LILIA (ED) (RN)Results read back by same. Basophils/100 WBC (Bld) 0.3 % 0-1 [facility] Bilirubin [Mass/Vol] 0.40 mg/dL 0.20-1.00 [facility] Comment on above: For patients on eltr ombopag therapy, use of Dimension [place] TBIL is not recommended. Chloride [Moles/Vol] 107 mmol/L 98-107 [facility] Eosinophils/100 WBC (Bld) 0.6 % 0-5 [facility] Glucose [Mass/Vol] 112 mg/dL 74-106 [facility] Comment on above: Fasting Glucose resu lt from 100 to 125 mg/dL suggests IMPAIRED HOMEOSTASIS per A.D.A. criteria. Neutrophils (Bld) [#/Vol] 13.8 10*3/uL 2.0-7.7 [facility] Neutrophils/100 WBC (Bld) 85.1 % 47-70 [facility] Potassium [Moles/Vol] 4.5 mmol/L 3.5-5.1 [facility] Comment on above: Moderate Hemolysis, Result may be falsely increased. Protein [Mass/Vol] 8.6 g/dL 6.4-8.2 [facility] Sodium [Moles/Vol] 136 mmol/L 136-145 [facility] WBC (Bld) [#/Vol] 16.2 10*3/uL 4.4-11.0 [facility] Bilirubin Test strip Ql (U)O rdered By: Dr. Silva on 12-22-2022 Bilirubin Ql (U) Negative Negative [facility] Blood erythrocytes count (nu mber/volume)Ordered By: Dr. Silva on 12-22-2022 RBC (Bld) [#/Vol] 5.27 10*6/uL 4.2-5.4 [facility] Blood hemoglobin measurement (mass/volume)Ordered By: Dr. Silva on 12-22-2022 Hemoglobin (Bld) [Mass/Vol] 14.2 g/dL 12.0-15.0 [facility] Blood lymphocytes/100 leukoc ytesOrdered By: Dr. Silva on 12-22-2022 Lymphocytes/100 WBC (Bld) 10.5 % 19-41 [facility] Blood monocytes/100 leukocyt esOrdered By: Dr. Silva on 12-22-2022 Monocytes/100 WBC (Bld) 3.1 % 0-10 [facility] Blood platelet mean volumeOr dered By: Dr. Silva on 12-22-2022 Platelet mean volume (Bld) [Entitic vol] 9.1 fL 6.2-12.0 [facility] Determination of erythrocyte mean corpuscular volume (MCV)Ordered By: Dr. Silva on 12-22-2022 MCV (RBC) [Entitic vol] 82.4 fL 81-99 [facility] Hematocrit Auto (Bld) [Volum e fraction]Ordered By: Dr. Silva on 12-22-2022 Hematocrit (Bld) [Volume fraction] 43.4 % 37-47 [facility] Ketones Test strip Ql (U)Ord ered By: Dr. Silva on 12-22-2022 Ketones Ql (U) 15 mg/dl Negative [facility] Laboratory - Chemistry and C hemistry - challengeOrdered By: Dr. Silva on 12-22-2022 ALP [Catalytic activity/Vol] 64 U/L 45-117 [facility] ALT [Catalytic activity/Vol] 28 U/L 13-56 [facility] CO2 [Moles/Vol] 23.0 mmol/L 21.0-32.0 [facility] Globulin (S) [Mass/Vol] 4.3 g/dL 2.2-4.2 [facility] Lipase [Catalytic activity/Vol] 40 U/L 13-75 [facility] Comment on above: Please note:LIPASE r evised reference range effective 22. New Lipase methodology. Expected to produce lower values than the previous assay method. NEW Reference Range: 13 - 75 U/L Urea nitrogen/Creatinine [Mass ratio] 9.6 mg/mg 10-20 [facility] Laboratory - Drug toxicology Ordered By: Dr. Silva on 12-22-2022 Amphetamines Ql (U) Negative <1000 ng/mL [facility] Benzodiazepines Ql (U) Negative < 200 ng/mL [facility] Cannabinoids Screen Ql (U) Positive < 50 ng/mL [facility] Cocaine Ql (U) Negative < 300 ng/mL [facility] Opiates Ql (U) Negative < 300 ng/mL [facility] Laboratory - Hematology and Cell countsOrdered By: Dr. Silva on 12-22-2022 Erythrocyte distribution width (RBC) [Entitic vol] 45.1 fL 35.1-43.9 [facility] Erythrocyte distribution width (RBC) [Ratio] 15.1 % 11.6-14.6 [facility] Immature granulocytes/100 WBC (Bld) 0.400 % 0.0-0.9 [facility] Comment on above: IG% - Immature Granu locytes (promyelocytes, myelocytes and metamyelocytes) > 1% indicates that a LEFT SHIFT is Present. MCH (RBC) [Entitic mass] 26.9 pg 27.0-32.0 [facility] Nucleated RBC/100 WBC (Bld) [Ratio] 0 % 0-5 [facility] MCHC Auto (RBC) [Mass/Vol]Or dered By: Dr. Silva on 12-22-2022 MCHC (RBC) [Mass/Vol] 32.7 g/dL 32-36 [facility] Mucus LM Ql (Urine sed)Order ed By: Dr. Silva on 12-22-2022 Mucus Ql (Urine sed) 0 SEEN /hpf [facility] Nitrite Test strip Ql (U)Ord ered By: Dr. Silva on 12-22-2022 Nitrite Ql (U) Negative Negative [facility] No Panel InformationOrdered By: Dr. Silva on 12-22-2022 MDMA (Ecstasy) Screen Negative < 500 ng/mL [facility] Urine Barbiturates Screen Negative < 200 ng/mL [facility] Urine Drug Screen Comment [facility] Comment on above: CONFIRMATORY TESTING FOR ALL POSITIVE URINE DRUG SCREENRESULTS WILL ONLY BE SENT OUT UPON PHYSICIAN ORDER. VISTA Urine Drug Screen methods provide only preliminaryanalytical test results. A more specific alternate chemicalmethod must be used in order to obtain a confirmedanalytical result. Gas chromatography/mass spectrometery(GC/MS) is the preferred confirmatory method. Clinicalconsideration and professional judgement should be appliedto any drug of abuse test result, particularly whenpreliminary positive results are used. URINE TCA TESTING MUST BE ORDERED SEPARATELY. USE TESTMNEMONIC: UTCA Urine Methadone Screen Negative < 300 ng/mL [facility] Estimated Creatinine Clearance Calc 98.11 ml/min [facility] Estimated GFR (MDRD) Amer 96 mL/min >60 [facility] Comment on above: GFR Calc Estimated GFR (MDRD) Non-Af Amer 79 mL/min >60 [facility] Comment on above: Non- GFR Calc Platelets bldOrdered By: Dr. Silva on 12-22-2022 Platelets (Bld) [#/Vol] 284 10*3/uL 150-450 [facility] Protein Test strip Ql (U)Ord ered By: Dr. Silva on 12-22-2022 Protein Ql (U) 30 mg/dl Negative [facility] Serum or plasma albumin justice urement (mass/volume)Ordered By: Dr. Silva on 12-22-2022 Albumin [Mass/Vol] 4.3 g/dL 3.2-5.0 [facility] Serum or plasma albumin/glob ulin mass ratioOrdered By: Dr. Silva on 12-22-2022 Albumin/Globulin [Mass ratio] 1.0 {ratio} 0.9-2.4 [facility] Serum or plasma calcium justice urement (mass/volume)Ordered By: Dr. Silva on 12-22-2022 Calcium [Mass/Vol] 9.6 mg/dL 8.5-10.1 [facility] Serum or plasma creatinine m easurement (mass/volume)Ordered By: Dr. Silva on 12-22-2022 Creatinine [Mass/Vol] 0.94 mg/dL 0.55-1.02 [facility] Comment on above: The validity of the calculated GFR & GFRAA in patients over 70 years has not been determined. Clinical correlation is essential. Serum or plasma urea nitroge n measurement (mass/volume)Ordered By: Dr. Silva on 12-22-2022 Urea nitrogen [Mass/Vol] 9 mg/dL 7-18 [facility] Squamous epithelial cells de tection in urine sediment by light microscopyOrdered By: Dr. Silva on 12-22-2022 Epithelial cells.squamous LM Ql (Urine sed) 0 SEEN /hpf 5-10 [facility] Thin prep Papanicolaou smear with manual screeningOrdered By: Dr. Silva on 12-22-2022 Thin prep Papanicolaou smear with manual screening 36 U/L 15-37 [facility] Comment on above: Moderate Hemolysis, Result may be falsely increased. Thin prep Papanicolaou smear with manual screening 6 5-15 [facility] Urine blood detectionOrdered By: Dr. Silva on 12-22-2022 RBC Ql (U) Negative Negative [facility] RBC Ql (U) 0 SEEN /hpf 0-5 [facility] Urine clarityOrdered By: Dr. Silva on 12-22-2022 Clarity (U) Clear Clear [facility] Urine color determinationOrd ered By: Dr. Silva on 12-22-2022 Color (U) Yellow Yellow [facility] Urine glucose detectionOrder ed By: Dr. Silva on 12-22-2022 Glucose Ql (U) Normal mg/dl Normal [facility] Urine leukocyte esterase det ection by dipstickOrdered By: Dr. Silva on 12-22-2022 Leukocyte esterase Test strip Ql (U) Negative Negative [facility] Urine pHOrdered By: Dr. Lety gunter on 12-22-2022 pH (U) 8.0 [pH] 5.0 - 8.0 [facility] Urine phencyclidine (PCP) de tectionOrdered By: Dr. Silva on 12-22-2022 Phencyclidine Ql (U) Negative < 25 ng/mL [facility] Urine sediment bacteria coun t by microscopy (number/high power field)Ordered By: Dr. Silva on 12-22-2022 Bacteria LM.HPF (Urine sed) [#/Area] 0 /[HPF] None Seen [facility] Urine specific gravity measu rementOrdered By: Dr. Silva on 12-22-2022 Specific gravity (U) [Rel density] 1.015 1.002-1.03 0 [facility] Urobilinogen Auto test strip Ql (U)Ordered By: Dr. Silva on 12-22-2022 Urobilinogen Ql (U) Normal mg/dl Normal [facility] Absolute lymphocyte countOrd ered By: Dr. Solis on 12-14-2022 Lymphocytes Auto (Unsp spec) [#/Vol] 2.78 10*3/uL 0.83-4.51 [facility] Basophil percentageOrdered B y: Dr. Solis on 12-14-2022 Basophils/100 WBC (Bld) 0.5 % 0-1 [facility] Bilirubin [Mass/Vol] 0.60 mg/dL 0.20-1.00 [facility] Comment on above: For patients on eltr ombopag therapy, use of Dimension [place] TBIL is not recommended. Chloride [Moles/Vol] 112 mmol/L 98-107 [facility] Eosinophils/100 WBC (Bld) 0.6 % 0-5 [facility] Glucose [Mass/Vol] 80 mg/dL 74-106 [facility] Neutrophils (Bld) [#/Vol] 5.0 10*3/uL 2.0-7.7 [facility] Neutrophils/100 WBC (Bld) 58.3 % 47-70 [facility] Potassium [Moles/Vol] 3.5 mmol/L 3.5-5.1 [facility] Protein [Mass/Vol] 6.3 g/dL 6.4-8.2 [facility] Sodium [Moles/Vol] 138 mmol/L 136-145 [facility] WBC (Bld) [#/Vol] 8.6 10*3/uL 4.4-11.0 [facility] Blood erythrocytes count (nu mber/volume)Ordered By: Dr. Solis on 12-14-2022 RBC (Bld) [#/Vol] 4.11 10*6/uL 4.2-5.4 [facility] Blood hemoglobin measurement (mass/volume)Ordered By: Dr. Solis on 12-14-2022 Hemoglobin (Bld) [Mass/Vol] 10.7 g/dL 12.0-15.0 [facility] Blood lymphocytes/100 leukoc ytesOrdered By: Dr. Solis on 12-14-2022 Lymphocytes/100 WBC (Bld) 32.3 % 19-41 [facility] Blood monocytes/100 leukocyt esOrdered By: Dr. Solis on 12-14-2022 Monocytes/100 WBC (Bld) 8.0 % 0-10 [facility] Blood platelet mean volumeOr dered By: Dr. Solis on 12-14-2022 Platelet mean volume (Bld) [Entitic vol] 9.2 fL 6.2-12.0 [facility] Determination of erythrocyte mean corpuscular volume (MCV)Ordered By: Dr. Solis on 12-14-2022 MCV (RBC) [Entitic vol] 85.2 fL 81-99 [facility] Hematocrit Auto (Bld) [Volum e fraction]Ordered By: Dr. Solis on 12-14-2022 Hematocrit (Bld) [Volume fraction] 35.0 % 37-47 [facility] Laboratory - Chemistry and C hemistry - challengeOrdered By: Dr. Solis on 12-14-2022 ALP [Catalytic activity/Vol] 40 U/L 45-117 [facility] ALT [Catalytic activity/Vol] 18 U/L 13-56 [facility] CO2 [Moles/Vol] 21.0 mmol/L 21.0-32.0 [facility] Globulin (S) [Mass/Vol] 3.0 g/dL 2.2-4.2 [facility] Urea nitrogen/Creatinine [Mass ratio] 12.6 mg/mg 10-20 [facility] Laboratory - Hematology and Cell countsOrdered By: Dr. Solis on 12-14-2022 Erythrocyte distribution width (RBC) [Entitic vol] 44.1 fL 35.1-43.9 [facility] Erythrocyte distribution width (RBC) [Ratio] 14.4 % 11.6-14.6 [facility] Immature granulocytes/100 WBC (Bld) 0.300 % 0.0-0.9 [facility] Comment on above: IG% - Immature Granu locytes (promyelocytes, myelocytes and metamyelocytes) > 1% indicates that a LEFT SHIFT is Present. MCH (RBC) [Entitic mass] 26.0 pg 27.0-32.0 [facility] Nucleated RBC/100 WBC (Bld) [Ratio] 0 % 0-5 [facility] MCHC Auto (RBC) [Mass/Vol]Or dered By: Dr. Solis on 12-14-2022 MCHC (RBC) [Mass/Vol] 30.6 g/dL 32-36 [facility] No Panel InformationOrdered By: Dr. Solis on 12-14-2022 Estimated Creatinine Clearance Calc 146.38 ml/min [facility] Estimated GFR (MDRD) Amer 150 mL/min >60 [facility] Comment on above: GFR Calc Estimated GFR (MDRD) Non-Af Amer 124 mL/min >60 [facility] Comment on above: Non- GFR Calc Platelets bldOrdered By: Dr. Solis on 12-14-2022 Platelets (Bld) [#/Vol] 189 10*3/uL 150-450 [facility] Serum or plasma albumin justice urement (mass/volume)Ordered By: Dr. Solis on 12-14-2022 Albumin [Mass/Vol] 3.3 g/dL 3.2-5.0 [facility] Serum or plasma albumin/glob ulin mass ratioOrdered By: Dr. Solis on 12-14-2022 Albumin/Globulin [Mass ratio] 1.1 {ratio} 0.9-2.4 [facility] Serum or plasma calcium justice urement (mass/volume)Ordered By: Dr. Solis on 12-14-2022 Calcium [Mass/Vol] 8.0 mg/dL 8.5-10.1 [facility] Serum or plasma creatinine m easurement (mass/volume)Ordered By: Dr. Solis on 12-14-2022 Creatinine [Mass/Vol] 0.63 mg/dL 0.55-1.02 [facility] Comment on above: The validity of the calculated GFR & GFRAA in patients over 70 years has not been determined. Clinical correlation is essential. Serum or plasma urea nitroge n measurement (mass/volume)Ordered By: Dr. Solis on 12-14-2022 Urea nitrogen [Mass/Vol] 8 mg/dL 7-18 [facility] Thin prep Papanicolaou smear with manual screeningOrdered By: Dr. Solis on 12-14-2022 Thin prep Papanicolaou smear with manual screening 8 U/L 15-37 [facility] Thin prep Papanicolaou smear with manual screening 5 5-15 [facility] Absolute lymphocyte countOrd ered By: Dr. Santos on 12-13-2022 Lymphocytes Auto (Unsp spec) [#/Vol] 1.37 10*3/uL 0.83-4.51 [facility] Basophil percentageOrdered B y: Dr. Santos on 12-13-2022 Basophils/100 WBC (Bld) 0.3 % 0-1 [facility] Bilirubin [Mass/Vol] 0.60 mg/dL 0.20-1.00 [facility] Comment on above: For patients on eltr ombopag therapy, use of Dimension [place] TBIL is not recommended. Chloride [Moles/Vol] 108 mmol/L 98-107 [facility] Eosinophils/100 WBC (Bld) 0.6 % 0-5 [facility] Glucose [Mass/Vol] 94 mg/dL 74-106 [facility] Neutrophils (Bld) [#/Vol] 10.0 10*3/uL 2.0-7.7 [facility] Neutrophils/100 WBC (Bld) 83.2 % 47-70 [facility] Potassium [Moles/Vol] 3.3 mmol/L 3.5-5.1 [facility] Protein [Mass/Vol] 8.0 g/dL 6.4-8.2 [facility] Sodium [Moles/Vol] 139 mmol/L 136-145 [facility] WBC (Bld) [#/Vol] 12.0 10*3/uL 4.4-11.0 [facility] Blood erythrocytes count (nu mber/volume)Ordered By: Dr. Santos on 12-13-2022 RBC (Bld) [#/Vol] 4.70 10*6/uL 4.2-5.4 [facility] Blood hemoglobin measurement (mass/volume)Ordered By: Dr. Santos on 12-13-2022 Hemoglobin (Bld) [Mass/Vol] 12.8 g/dL 12.0-15.0 [facility] Blood lymphocytes/100 leukoc ytesOrdered By: Dr. Santos on 12-13-2022 Lymphocytes/100 WBC (Bld) 11.4 % 19-41 [facility] Blood monocytes/100 leukocyt esOrdered By: Dr. Santos on 12-13-2022 Monocytes/100 WBC (Bld) 4.2 % 0-10 [facility] Blood platelet mean volumeOr dered By: Dr. Santos on 12-13-2022 Platelet mean volume (Bld) [Entitic vol] 10.1 fL 6.2-12.0 [facility] Determination of erythrocyte mean corpuscular volume (MCV)Ordered By: Dr. Santos on 12-13-2022 MCV (RBC) [Entitic vol] 84.5 fL 81-99 [facility] Hematocrit Auto (Bld) [Volum e fraction]Ordered By: Dr. Santos on 12-13-2022 Hematocrit (Bld) [Volume fraction] 39.7 % 37-47 [facility] Laboratory - Chemistry and C hemistry - challengeOrdered By: Dr. Santos on 12-13-2022 ALP [Catalytic activity/Vol] 52 U/L 45-117 [facility] ALT [Catalytic activity/Vol] 23 U/L 13-56 [facility] CO2 [Moles/Vol] 21.0 mmol/L 21.0-32.0 [facility] Globulin (S) [Mass/Vol] 3.9 g/dL 2.2-4.2 [facility] Lipase [Catalytic activity/Vol] 101 U/L 73-393 [facility] Urea nitrogen/Creatinine [Mass ratio] 10.6 mg/mg 10-20 [facility] Laboratory - Chemistry and C hemistry - challengeOrdered By: Dr. Solis on 12-13-2022 Magnesium [Mass/Vol] 2.0 mg/dL 1.6-2.6 [facility] Laboratory - Drug toxicology Ordered By: Dr. Solis on 12-13-2022 Amphetamines Ql (U) Negative <1000 ng/mL [facility] Benzodiazepines Ql (U) Negative < 200 ng/mL [facility] Cannabinoids Screen Ql (U) Positive < 50 ng/mL [facility] Cocaine Ql (U) Negative < 300 ng/mL [facility] Opiates Ql (U) Negative < 300 ng/mL [facility] [facility] Hematology and Cell countsOrdered By: Dr. Santos on 12-13-2022 Erythrocyte distribution width (RBC) [Entitic vol] 44.4 fL 35.1-43.9 [facility] Erythrocyte distribution width (RBC) [Ratio] 14.5 % 11.6-14.6 [facility] Immature granulocytes/100 WBC (Bld) 0.300 % 0.0-0.9 [facility] Comment on above: IG% - Immature Granu locytes (promyelocytes, myelocytes and metamyelocytes) > 1% indicates that a LEFT SHIFT is Present. MCH (RBC) [Entitic mass] 27.2 pg 27.0-32.0 [facility] Nucleated RBC/100 WBC (Bld) [Ratio] 0 % 0-5 [facility] MCHC Auto (RBC) [Mass/Vol]Or dered By: Dr. Santos on 12-13-2022 MCHC (RBC) [Mass/Vol] 32.2 g/dL 32-36 [facility] No Panel InformationOrdered By: Dr. Solis on 12-13-2022 MDMA (Ecstasy) Screen Negative < 500 ng/mL [facility] Urine Barbiturates Screen Negative < 200 ng/mL [facility] Urine Drug Screen Comment [facility] Comment on above: CONFIRMATORY TESTING FOR ALL POSITIVE URINE DRUG SCREENRESULTS WILL ONLY BE SENT OUT UPON PHYSICIAN ORDER. VISTA Urine Drug Screen methods provide only preliminaryanalytical test results. A more specific alternate chemicalmethod must be used in order to obtain a confirmedanalytical result. Gas chromatography/mass spectrometery(GC/MS) is the preferred confirmatory method. Clinicalconsideration and professional judgement should be appliedto any drug of abuse test result, particularly whenpreliminary positive results are used. URINE TCA TESTING MUST BE ORDERED SEPARATELY. USE TESTMNEMONIC: [facility] Urine Methadone Screen Negative < 300 ng/mL [facility] No Panel InformationOrdered By: Dr. Santos on 12-13-2022 Estimated Creatinine Clearance Calc 88.67 ml/min [facility] Estimated GFR (MDRD) Amer 85 mL/min >60 [facility] Comment on above: GFR Calc Estimated GFR (MDRD) Non-Af Amer 70 mL/min >60 [facility] Comment on above: Non- GFR Calc Platelets bldOrdered By: Dr. Santos on 12-13-2022 Platelets (Bld) [#/Vol] 217 10*3/uL 150-450 [facility] Serum or plasma albumin justice urement (mass/volume)Ordered By: Dr. Santos on 12-13-2022 Albumin [Mass/Vol] 4.1 g/dL 3.2-5.0 [facility] Serum or plasma albumin/glob ulin mass ratioOrdered By: Dr. Santos on 12-13-2022 Albumin/Globulin [Mass ratio] 1.1 {ratio} 0.9-2.4 [facility] Serum or plasma calcium justice urement (mass/volume)Ordered By: Dr. Santos on 12-13-2022 Calcium [Mass/Vol] 9.3 mg/dL 8.5-10.1 [facility] Serum or plasma creatinine m easurement (mass/volume)Ordered By: Dr. Santos on 12-13-2022 Creatinine [Mass/Vol] 1.04 mg/dL 0.55-1.02 [facility] Comment on above: The validity of the calculated GFR & GFRAA in patients over 70 years has not been determined. Clinical correlation is essential. Serum or plasma urea nitroge n measurement (mass/volume)Ordered By: Dr. Santos on 12-13-2022 Urea nitrogen [Mass/Vol] 11 mg/dL 7-18 [facility] Thin prep Papanicolaou smear with manual screeningOrdered By: Dr. Santos on 12-13-2022 Thin prep Papanicolaou smear with manual screening 11 U/L 15-37 [facility] Thin prep Papanicolaou smear with manual screening 10 5-15 [facility] Urine phencyclidine (PCP) de tectionOrdered By: Dr. Solis on 12-13-2022 Phencyclidine Ql (U) Negative < 25 ng/mL [facility] Absolute lymphocyte countOrd ered By: Dr. Zepeda on 12-12-2022 Lymphocytes Auto (Unsp spec) [#/Vol] 2.05 10*3/uL 0.83-4.51 [facility] Basophil percentageOrdered B y: Dr. Zepeda on 12-12-2022 Basophil percentage 3.4 mg/dL 2.5-4.9 [facility] Basophils/100 WBC (Bld) 0.3 % 0-1 [facility] Bilirubin [Mass/Vol] 0.40 mg/dL 0.20-1.00 [facility] Comment on above: For patients on eltr ombopag therapy, use of Dimension [place] TBIL is not recommended. Chloride [Moles/Vol] 108 mmol/L 98-107 [facility] Eosinophils/100 WBC (Bld) 0.3 % 0-5 [facility] Glucose [Mass/Vol] 89 mg/dL 74-106 [facility] Neutrophils (Bld) [#/Vol] 6.8 10*3/uL 2.0-7.7 [facility] Neutrophils/100 WBC (Bld) 70.2 % 47-70 [facility] Potassium [Moles/Vol] 3.7 mmol/L 3.5-5.1 [facility] Protein [Mass/Vol] 7.2 g/dL 6.4-8.2 [facility] Sodium [Moles/Vol] 139 mmol/L 136-145 [facility] WBC (Bld) [#/Vol] 9.7 10*3/uL 4.4-11.0 [facility] Blood erythrocytes count (nu mber/volume)Ordered By: Dr. Zepeda on 12-12-2022 RBC (Bld) [#/Vol] 4.49 10*6/uL 4.2-5.4 [facility] Blood hemoglobin measurement (mass/volume)Ordered By: Dr. Zepeda on 12-12-2022 Hemoglobin (Bld) [Mass/Vol] 11.8 g/dL 12.0-15.0 [facility] Blood lymphocytes/100 leukoc ytesOrdered By: Dr. Zepeda on 12-12-2022 Lymphocytes/100 WBC (Bld) 21.0 % 19-41 [facility] Blood manual differential co mment interpretation (narrative result)Ordered By: Dr. Zepeda on 12-12-2022 Manual differential comment Arley (Bld) [Interp] SCANNED [facility] Blood monocytes/100 leukocyt esOrdered By: Dr. Zepeda on 12-12-2022 Monocytes/100 WBC (Bld) 7.9 % 0-10 [facility] Blood platelet mean volumeOr dered By: Dr. Zepeda on 12-12-2022 Platelet mean volume (Bld) [Entitic vol] 9.9 fL 6.2-12.0 [facility] Determination of erythrocyte mean corpuscular volume (MCV)Ordered By: Dr. Zepeda on 12-12-2022 MCV (RBC) [Entitic vol] 84.4 fL 81-99 [facility] Hematocrit Auto (Bld) [Volum e fraction]Ordered By: Dr. Zepeda on 12-12-2022 Hematocrit (Bld) [Volume fraction] 37.9 % 37-47 [facility] Laboratory - Chemistry and C hemistry - challengeOrdered By: Dr. Zepeda on 12-12-2022 ALP [Catalytic activity/Vol] 47 U/L 45-117 [facility] ALT [Catalytic activity/Vol] 21 U/L 13-56 [facility] CO2 [Moles/Vol] 23.0 mmol/L 21.0-32.0 [facility] Globulin (S) [Mass/Vol] 3.6 g/dL 2.2-4.2 [facility] Magnesium [Mass/Vol] 1.9 mg/dL 1.6-2.6 [facility] Urea nitrogen/Creatinine [Mass ratio] 13.4 mg/mg 10-20 [facility] Laboratory - Hematology and Cell countsOrdered By: Dr. Zepeda on 12-12-2022 Anisocytosis Ql (Bld) 1+ [facility] Erythrocyte distribution width (RBC) [Entitic vol] 45.0 fL 35.1-43.9 [facility] Erythrocyte distribution width (RBC) [Ratio] 14.7 % 11.6-14.6 [facility] Immature granulocytes/100 WBC (Bld) 0.300 % 0.0-0.9 [facility] Comment on above: IG% - Immature Granu locytes (promyelocytes, myelocytes and metamyelocytes) > 1% indicates that a LEFT SHIFT is Present. MCH (RBC) [Entitic mass] 26.3 pg 27.0-32.0 [facility] Nucleated RBC/100 WBC (Bld) [Ratio] 0 % 0-5 [facility] MCHC Auto (RBC) [Mass/Vol]Or dered By: Dr. Zepeda on 12-12-2022 MCHC (RBC) [Mass/Vol] 31.1 g/dL 32-36 [facility] No Panel InformationOrdered By: Dr. Zepeda on 12-12-2022 Estimated Creatinine Clearance Calc 124.62 ml/min [facility] Estimated GFR (MDRD) Amer 124 mL/min >60 [facility] Comment on above: GFR Calc Estimated GFR (MDRD) Non-Af Amer 103 mL/min >60 [facility] Comment on above: Non- GFR Calc Thyroid Stimulating Hormone (TSH) 1.78 uIU/mL 0.358-3.74 [facility] Platelets bldOrdered By: Dr. Zepeda on 12-12-2022 Platelets (Bld) [#/Vol] 194 10*3/uL 150-450 [facility] Serum or plasma albumin justice urement (mass/volume)Ordered By: Dr. Zepeda on 12-12-2022 Albumin [Mass/Vol] 3.6 g/dL 3.2-5.0 [facility] Serum or plasma albumin/glob ulin mass ratioOrdered By: Dr. Zepeda on 12-12-2022 Albumin/Globulin [Mass ratio] 1.0 {ratio} 0.9-2.4 [facility] Serum or plasma calcium justice urement (mass/volume)Ordered By: Dr. Zepeda on 12-12-2022 Calcium [Mass/Vol] 8.2 mg/dL 8.5-10.1 [facility] Serum or plasma creatinine m easurement (mass/volume)Ordered By: Dr. Zepeda on 12-12-2022 Creatinine [Mass/Vol] 0.74 mg/dL 0.55-1.02 [facility] Comment on above: The validity of the calculated GFR & GFRAA in patients over 70 years has not been determined. Clinical correlation is essential. Serum or plasma urea nitroge n measurement (mass/volume)Ordered By: Dr. Zepeda on 12-12-2022 Urea nitrogen [Mass/Vol] 10 mg/dL 7-18 [facility] Thin prep Papanicolaou smear with manual screeningOrdered By: Dr. Zepeda on 12-12-2022 Thin prep Papanicolaou smear with manual screening 12 U/L 15-37 [facility] Thin prep Papanicolaou smear with manual screening 8 5-15 [facility] Absolute lymphocyte countOrd ered By: Dr. Liu on 12-11-2022 Lymphocytes Auto (Unsp spec) [#/Vol] 1.99 10*3/uL 0.83-4.51 [facility] Basophil percentageOrdered B y: Dr. Liu on 12-11-2022 Basophils/100 WBC (Bld) 0.2 % 0-1 [facility] Bilirubin [Mass/Vol] 0.30 mg/dL 0.20-1.00 [facility] Comment on above: For patients on eltr ombopag therapy, use of Dimension [place] TBIL is not recommended. Chloride [Moles/Vol] 106 mmol/L 98-107 [facility] Eosinophils/100 WBC (Bld) 2.0 % 0-5 [facility] Glucose [Mass/Vol] 104 mg/dL 74-106 [facility] Comment on above: Fasting Glucose resu lt from 100 to 125 mg/dL suggests IMPAIRED HOMEOSTASIS per A.D.A. criteria. Neutrophils (Bld) [#/Vol] 12.9 10*3/uL 2.0-7.7 [facility] Neutrophils/100 WBC (Bld) 81.0 % 47-70 [facility] Potassium [Moles/Vol] 3.5 mmol/L 3.5-5.1 [facility] Protein [Mass/Vol] 8.8 g/dL 6.4-8.2 [facility] Sodium [Moles/Vol] 139 mmol/L 136-145 [facility] WBC (Bld) [#/Vol] 16.0 10*3/uL 4.4-11.0 [facility] Blood erythrocytes count (nu mber/volume)Ordered By: Dr. Liu on 12-11-2022 RBC (Bld) [#/Vol] 5.33 10*6/uL 4.2-5.4 [facility] Blood hemoglobin measurement (mass/volume)Ordered By: Dr. Liu on 12-11-2022 Hemoglobin (Bld) [Mass/Vol] 14.1 g/dL 12.0-15.0 [facility] Blood lymphocytes/100 leukoc ytesOrdered By: Dr. Liu on 12-11-2022 Lymphocytes/100 WBC (Bld) 12.5 % 19-41 [facility] Blood monocytes/100 leukocyt esOrdered By: Dr. Liu on 12-11-2022 Monocytes/100 WBC (Bld) 4.0 % 0-10 [facility] Blood platelet mean volumeOr dered By: Dr. Liu on 12-11-2022 Platelet mean volume (Bld) [Entitic vol] 9.4 fL 6.2-12.0 [facility] Determination of erythrocyte mean corpuscular volume (MCV)Ordered By: Dr. Liu on 12-11-2022 MCV (RBC) [Entitic vol] 82.0 fL 81-99 [facility] Hematocrit Auto (Bld) [Volum e fraction]Ordered By: Dr. Liu on 12-11-2022 Hematocrit (Bld) [Volume fraction] 43.7 % 37-47 [facility] Laboratory - Chemistry and C hemistry - challengeOrdered By: Dr. Liu on 12-11-2022 ALP [Catalytic activity/Vol] 61 U/L 45-117 [facility] ALT [Catalytic activity/Vol] 26 U/L 13-56 [facility] CO2 [Moles/Vol] 23.0 mmol/L 21.0-32.0 [facility] Globulin (S) [Mass/Vol] 4.3 g/dL 2.2-4.2 [facility] Lipase [Catalytic activity/Vol] 131 U/L 73-393 [facility] Urea nitrogen/Creatinine [Mass ratio] 10.8 mg/mg 10-20 [facility] Laboratory - Hematology and Cell countsOrdered By: Dr. Liu on 12-11-2022 Erythrocyte distribution width (RBC) [Entitic vol] 43.6 fL 35.1-43.9 [facility] Erythrocyte distribution width (RBC) [Ratio] 14.6 % 11.6-14.6 [facility] Immature granulocytes/100 WBC (Bld) 0.300 % 0.0-0.9 [facility] Comment on above: IG% - Immature Granu locytes (promyelocytes, myelocytes and metamyelocytes) > 1% indicates that a LEFT SHIFT is Present. MCH (RBC) [Entitic mass] 26.5 pg 27.0-32.0 [facility] Nucleated RBC/100 WBC (Bld) [Ratio] 0 % 0-5 [facility] MCHC Auto (RBC) [Mass/Vol]Or dered By: Dr. Liu on 12-11-2022 MCHC (RBC) [Mass/Vol] 32.3 g/dL 32-36 [facility] No Panel InformationOrdered By: Dr. Liu on 12-11-2022 Estimated Creatinine Clearance Calc 90.41 ml/min [facility] Estimated GFR (MDRD) Amer 87 mL/min >60 [facility] Comment on above: GFR Calc Estimated GFR (MDRD) Non-Af Amer 72 mL/min >60 [facility] Comment on above: Non- GFR Calc Platelets bldOrdered By: Dr. Liu on 12-11-2022 Platelets (Bld) [#/Vol] 285 10*3/uL 150-450 [facility] Serum or plasma albumin justice urement (mass/volume)Ordered By: Dr. Liu on 12-11-2022 Albumin [Mass/Vol] 4.5 g/dL 3.2-5.0 [facility] Serum or plasma albumin/glob ulin mass ratioOrdered By: Dr. Liu on 12-11-2022 Albumin/Globulin [Mass ratio] 1.0 {ratio} 0.9-2.4 [facility] Serum or plasma calcium justice urement (mass/volume)Ordered By: Dr. Liu on 12-11-2022 Calcium [Mass/Vol] 9.9 mg/dL 8.5-10.1 [facility] Serum or plasma creatinine m easurement (mass/volume)Ordered By: Dr. Liu on 12-11-2022 Creatinine [Mass/Vol] 1.02 mg/dL 0.55-1.02 [facility] Comment on above: The validity of the calculated GFR & GFRAA in patients over 70 years has not been determined. Clinical correlation is essential. Serum or plasma urea nitroge n measurement (mass/volume)Ordered By: Dr. Liu on 12-11-2022 Urea nitrogen [Mass/Vol] 11 mg/dL 7-18 [facility] Thin prep Papanicolaou smear with manual screeningOrdered By: Dr. Liu on 12-11-2022 Thin prep Papanicolaou smear with manual screening 13 U/L 15-37 [facility] Thin prep Papanicolaou smear with manual screening 10 5-15 [facility] Basophil percentageOrdered B y: Dr. Henriquez on 12-10-2022 Basophil percentage 0-5 SEEN /hpf 0-5 [facility] Bilirubin Test strip Ql (U)O rdered By: Dr. Henriquez on 12-10-2022 Bilirubin Ql (U) Negative Negative [facility] Ketones Test strip Ql (U)Ord ered By: Dr. Henriquez on 12-10-2022 Ketones Ql (U) 15 mg/dl Negative [facility] Mucus LM Ql (Urine sed)Order ed By: Dr. Henriquez on 12-10-2022 Mucus Ql (Urine sed) 0 SEEN /hpf [facility] Nitrite Test strip Ql (U)Ord ered By: Dr. Henriquez on 12-10-2022 Nitrite Ql (U) Negative Negative [facility] Protein Test strip Ql (U)Ord ered By: Dr. Henriquez on 12-10-2022 Protein Ql (U) 30 mg/dl Negative [facility] Squamous epithelial cells de tection in urine sediment by light microscopyOrdered By: Dr. Henriquez on 12-10-2022 Epithelial cells.squamous LM Ql (Urine sed) 0-5 SEEN /hpf 5-10 [facility] Urine blood detectionOrdered By: Dr. Henriquez on 12-10-2022 RBC Ql (U) Negative Negative [facility] RBC Ql (U) 0 SEEN /hpf 0-5 [facility] Urine clarityOrdered By: Dr. Henriquez on 12-10-2022 Clarity (U) Clear Clear [facility] Urine color determinationOrd ered By: Dr. Henriquez on 12-10-2022 Color (U) Yellow Yellow [facility] Urine glucose detectionOrder ed By: Dr. Henriquez on 12-10-2022 Glucose Ql (U) Normal mg/dl Normal [facility] Urine leukocyte esterase det ection by dipstickOrdered By: Dr. Henriquez on 12-10-2022 Leukocyte esterase Test strip Ql (U) 25 /ul Negative [facility] Urine pHOrdered By: Dr. Sunshine sands on 12-10-2022 pH (U) 8.0 [pH] 5.0 - 8.0 [facility] Urine sediment bacteria coun t by microscopy (number/high power field)Ordered By: Dr. Henriquez on 12-10-2022 Bacteria LM.HPF (Urine sed) [#/Area] 0 /[HPF] None Seen [facility] Urine specific gravity measu rementOrdered By: Dr. Henriquez on 12-10-2022 Specific gravity (U) [Rel density] 1.010 1.002-1.03 0 [facility] Urobilinogen Auto test strip Ql (U)Ordered By: Dr. Henriquez on 12-10-2022 Urobilinogen Ql (U) Normal mg/dl Normal [facility] Absolute lymphocyte countOrd ered By: Dr. Henriquez on 12-09-2022 Lymphocytes Auto (Unsp spec) [#/Vol] 2.20 10*3/uL 0.83-4.51 [facility] Basophil percentageOrdered B y: Dr. Henriquez on 12-09-2022 Basophils/100 WBC (Bld) 0.3 % 0-1 [facility] Bilirubin [Mass/Vol] 0.20 mg/dL 0.20-1.00 [facility] Comment on above: For patients on eltr ombopag therapy, use of Dimension [place] TBIL is not recommended. Chloride [Moles/Vol] 107 mmol/L 98-107 [facility] Eosinophils/100 WBC (Bld) 2.6 % 0-5 [facility] Glucose [Mass/Vol] 102 mg/dL 74-106 [facility] Comment on above: Fasting Glucose resu lt from 100 to 125 mg/dL suggests IMPAIRED HOMEOSTASIS per A.D.A. criteria. Lactate [Moles/Vol] 2.9 mmol/L 0.4-2.0 [facility] Comment on above: Critical Result(s) C alled at: 21:31:20 12/09/2022 by: NABEEL SOLIS TO POLA SHAH. Results read back by same. Neutrophils (Bld) [#/Vol] 11.8 10*3/uL 2.0-7.7 [facility] Neutrophils/100 WBC (Bld) 77.5 % 47-70 [facility] Potassium [Moles/Vol] 3.9 mmol/L 3.5-5.1 [facility] Comment on above: Moderate Hemolysis, Result may be falsely increased. Protein [Mass/Vol] 8.1 g/dL 6.4-8.2 [facility] Sodium [Moles/Vol] 137 mmol/L 136-145 [facility] WBC (Bld) [#/Vol] 15.2 10*3/uL 4.4-11.0 [facility] Blood erythrocytes count (nu mber/volume)Ordered By: Dr. Henriquez on 12-09-2022 RBC (Bld) [#/Vol] 5.18 10*6/uL 4.2-5.4 [facility] Blood hemoglobin measurement (mass/volume)Ordered By: Dr. Henriquez on 12-09-2022 Hemoglobin (Bld) [Mass/Vol] 13.8 g/dL 12.0-15.0 [facility] Blood lymphocytes/100 leukoc ytesOrdered By: Dr. Henriquez on 12-09-2022 Lymphocytes/100 WBC (Bld) 14.5 % 19-41 [facility] Blood monocytes/100 leukocyt esOrdered By: Dr. Henriquez on 12-09-2022 Monocytes/100 WBC (Bld) 4.8 % 0-10 [facility] Blood platelet mean volumeOr dered By: Dr. Henriquez on 12-09-2022 Platelet mean volume (Bld) [Entitic vol] 9.6 fL 6.2-12.0 [facility] Determination of erythrocyte mean corpuscular volume (MCV)Ordered By: Dr. Henriquez on 12-09-2022 MCV (RBC) [Entitic vol] 82.8 fL 81-99 [facility] Hematocrit Auto (Bld) [Volum e fraction]Ordered By: Dr. Henriquez on 12-09-2022 Hematocrit (Bld) [Volume fraction] 42.9 % 37-47 [facility] Laboratory - Chemistry and C hemistry - challengeOrdered By: Dr. Henriquez on 12-09-2022 ALP [Catalytic activity/Vol] 59 U/L 45-117 [facility] ALT [Catalytic activity/Vol] 24 U/L 13-56 [facility] CO2 [Moles/Vol] 22.0 mmol/L 21.0-32.0 [facility] Globulin (S) [Mass/Vol] 4.2 g/dL 2.2-4.2 [facility] Lipase [Catalytic activity/Vol] 140 U/L 73-393 [facility] Urea nitrogen/Creatinine [Mass ratio] 12.7 mg/mg 10-20 [facility] Laboratory - Hematology and Cell countsOrdered By: Dr. Henriquez on 12-09-2022 Erythrocyte distribution width (RBC) [Entitic vol] 43.8 fL 35.1-43.9 [facility] Erythrocyte distribution width (RBC) [Ratio] 14.6 % 11.6-14.6 [facility] Immature granulocytes/100 WBC (Bld) 0.300 % 0.0-0.9 [facility] Comment on above: IG% - Immature Granu locytes (promyelocytes, myelocytes and metamyelocytes) > 1% indicates that a LEFT SHIFT is Present. MCH (RBC) [Entitic mass] 26.6 pg 27.0-32.0 [facility] Nucleated RBC/100 WBC (Bld) [Ratio] 0 % 0-5 [facility] MCHC Auto (RBC) [Mass/Vol]Or dered By: Dr. Henriquez on 12-09-2022 MCHC (RBC) [Mass/Vol] 32.2 g/dL 32-36 [facility] No Panel InformationOrdered By: Dr. Henriquez on 12-09-2022 Estimated Creatinine Clearance Calc 107.23 ml/min [facility] Estimated GFR (MDRD) Amer 105 mL/min >60 [facility] Comment on above: GFR Calc Estimated GFR (MDRD) Non-Af Amer 86 mL/min >60 [facility] Comment on above: Non- GFR Calc Platelets bldOrdered By: Dr. Henriquez on 12-09-2022 Platelets (Bld) [#/Vol] 282 10*3/uL 150-450 [facility] Serum or plasma albumin justice urement (mass/volume)Ordered By: Dr. Henriquez on 12-09-2022 Albumin [Mass/Vol] 3.9 g/dL 3.2-5.0 [facility] Serum or plasma albumin/glob ulin mass ratioOrdered By: Dr. Henriquez on 12-09-2022 Albumin/Globulin [Mass ratio] 0.9 {ratio} 0.9-2.4 [facility] Serum or plasma calcium justice urement (mass/volume)Ordered By: Dr. Henriquez on 12-09-2022 Calcium [Mass/Vol] 9.3 mg/dL 8.5-10.1 [facility] Serum or plasma creatinine m easurement (mass/volume)Ordered By: Dr. Henriquez on 12-09-2022 Creatinine [Mass/Vol] 0.86 mg/dL 0.55-1.02 [facility] Comment on above: The validity of the calculated GFR & GFRAA in patients over 70 years has not been determined. Clinical correlation is essential. Serum or plasma urea nitroge n measurement (mass/volume)Ordered By: Dr. Henriquez on 12-09-2022 Urea nitrogen [Mass/Vol] 11 mg/dL 7-18 [facility] Thin prep Papanicolaou smear with manual screeningOrdered By: Dr. Henriquez on 12-09-2022 Thin prep Papanicolaou smear with manual screening 22 U/L 15-37 [facility] Comment on above: Moderate Hemolysis, Result may be falsely increased. Thin prep Papanicolaou smear with manual screening 8 5-15 [facility] Absolute lymphocyte counton 12-10-2021 Lymphocytes Auto (Unsp spec) [#/Vol] 1.43 10*3/uL 0.83-4.51 [facility] Work Phone: Basophil percentageon 2021 Basophil percentage 25-50 SEEN /hpf [facility] Work Phone: Basophils/100 WBC (Bld) 0.3 % 0-1 [facility] Work Phone: Chloride [Moles/Vol] 109 mmol/L 98-107 [facility] Work Phone: Eosinophils/100 WBC (Bld) 2.4 % 0-5 [facility] Work Phone: Glucose [Mass/Vol] 92 mg/dL 74-106 [facility] Work Phone: Neutrophils (Bld) [#/Vol] 7.7 10*3/uL 2.0-7.7 [facility] Work Phone: Neutrophils/100 WBC (Bld) 77.6 % 47-70 [facility] Work Phone: Potassium [Moles/Vol] 3.7 mmol/L 3.5-5.1 [facility] Work Phone: Sodium [Moles/Vol] 138 mmol/L 136-145 [facility] Work Phone: WBC (Bld) [#/Vol] 10.0 10*3/uL 4.4-11.0 [facility] Work Phone: Bilirubin Test strip Ql (U)o n 12-10-2021 Bilirubin Ql (U) Negative Negative [facility] Work Phone: Blood erythrocytes count (nu mber/volume)on 12-10-2021 RBC (Bld) [#/Vol] 4.36 10*6/uL 4.2-5.4 [facility] Work Phone: Blood hemoglobin measurement (mass/volume)on 12-10-2021 Hemoglobin (Bld) [Mass/Vol] 10.3 g/dL 12.0-15.0 [facility] Work Phone: Blood lymphocytes/100 leukoc yteson 12-10-2021 Lymphocytes/100 WBC (Bld) 14.4 % 19-41 [facility] Work Phone: Blood monocytes/100 leukocyt eson 12-10-2021 Monocytes/100 WBC (Bld) 5.1 % 0-10 [facility] Work Phone: Blood platelet mean volumeon 12-10-2021 Platelet mean volume (Bld) [Entitic vol] 8.8 fL 6.2-12.0 [facility] Work Phone: Culture, urineon 12-10-2021 Bacteria identified Cx Nom (U) Escherichia coli [facility] Work Phone: Determination of erythrocyte mean corpuscular volume (MCV)on 12-10-2021 MCV (RBC) [Entitic vol] 78.0 fL 81-99 [facility] Work Phone: Hematocrit Auto (Bld) [Volum e fraction]on 12-10-2021 Hematocrit (Bld) [Volume fraction] 34.0 % 37-47 [facility] Work Phone: Ketones Test strip Ql (U)on 12-10-2021 Ketones Ql (U) Negative Negative [facility] Work Phone: Laboratory - Chemistry and C hemistry - challengeon 12-10-2021 CO2 [Moles/Vol] 24.0 mmol/L 21.0-32.0 [facility] Work Phone: Urea nitrogen/Creatinine [Mass ratio] 11.4 mg/mg 10-20 [facility] Work Phone: Laboratory - Hematology and Cell countson 12-10-2021 Erythrocyte distribution width (RBC) [Entitic vol] 48.3 fL 35.1-43.9 [facility] Work Phone: Erythrocyte distribution width (RBC) [Ratio] 17.1 % 11.6-14.6 [facility] Work Phone: Immature granulocytes/100 WBC (Bld) 0.200 % 0.0-0.9 [facility] Work Phone: Comment on above: IG% - Immature Granu locytes (promyelocytes, myelocytes and metamyelocytes) > 1% indicates that a LEFT SHIFT is Present. MCH (RBC) [Entitic mass] 23.6 pg 27.0-32.0 [facility] Work Phone: Nucleated RBC/100 WBC (Bld) [Ratio] 0 % 0-5 [facility] Work Phone: MCHC Auto (RBC) [Mass/Vol]on 12-10-2021 MCHC (RBC) [Mass/Vol] 30.3 g/dL 32-36 [facility] Work Phone: Mucus LM Ql (Urine sed)on Mucus Ql (Urine sed) 0 SEEN /hpf [facility] Work Phone: Nitrite Test strip Ql (U)on 12-10-2021 Nitrite Ql (U) Positive Negative [facility] Work Phone: No Panel Informationon 12-10 Estimated Creatinine Clearance Calc 132.86 ml/min [facility] Work Phone: Estimated GFR (MDRD) Amer 134 mL/min >60 [facility] Work Phone: Comment on above: GFR Calc Estimated GFR (MDRD) Non-Af Amer 111 mL/min >60 [facility] Work Phone: Comment on above: Non- GFR Calc Platelets bldon 12-10-2021 Platelets (Bld) [#/Vol] 306 10*3/uL 150-450 [facility] Work Phone: Protein Test strip Ql (U)on 12-10-2021 Protein Ql (U) 100 mg/dl Negative [facility] Work Phone: Serum or plasma calcium justice urement (mass/volume)on 12-10-2021 Calcium [Mass/Vol] 9.3 mg/dL 8.5-10.1 [facility] Work Phone: Serum or plasma creatinine m easurement (mass/volume)on 12-10-2021 Creatinine [Mass/Vol] 0.70 mg/dL 0.55-1.02 [facility] Work Phone: Comment on above: The validity of the calculated GFR & GFRAA in patients over 70 years has not been determined. Clinical correlation is essential. Serum or plasma urea nitroge n measurement (mass/volume)on 12-10-2021 Urea nitrogen [Mass/Vol] 8 mg/dL 7-18 [facility] Work Phone: Squamous epithelial cells de tection in urine sediment by light microscopyon 12-10-2021 Epithelial cells.squamous LM Ql (Urine sed) 0 SEEN /hpf [facility] Work Phone: Thin prep Papanicolaou smear with manual screeningon 12-10-2021 Thin prep Papanicolaou smear with manual screening 5 5-15 [facility] Work Phone: Urine blood detectionon 04-0 5-2022 RBC Ql (U) 250 /ul Negative [facility] Work Phone: RBC Ql (U) 10-25 SEEN /hpf [facility] Work Phone: Urine clarityon 12-10-2021 Clarity (U) Sl. Cloudy Clear [facility] Work Phone: Urine color determinationon 12-10-2021 Color (U) Yellow Yellow [facility] Work Phone: Urine glucose detectionon Glucose Ql (U) Normal mg/dl Normal [facility] Work Phone: Urine leukocyte esterase det ection by dipstickon 12-10-2021 Leukocyte esterase Test strip Ql (U) 500 /ul Negative [facility] Work Phone: Urine pHon 12-10-2021 pH (U) 6.5 [pH] [facility] Work Phone: Urine sediment bacteria coun t by microscopy (number/high power field)on 12-10-2021 Bacteria LM.HPF (Urine sed) [#/Area] 2 /[HPF] None Seen [facility] Work Phone: Urine specific gravity measu rementon 12-10-2021 Specific gravity (U) [Rel density] 1.015 [facility] Work Phone: Urobilinogen Auto test strip Ql (U)on 12-10-2021 Urobilinogen Ql (U) Normal mg/dl Normal [facility] Work Phone: Absolute lymphocyte counton 10-14-2021 Lymphocytes Auto (Unsp spec) [#/Vol] 1.38 10*3/uL 0.83-4.51 [facility] Work Phone: Lymphocytes Auto (Unsp spec) [#/Vol] 1.60 10*3/uL 0.83-4.51 [facility] Work Phone: Basophil percentageon 2021 Basophils/100 WBC (Bld) 0.9 % 0-1 [facility] Work Phone: Bilirubin [Mass/Vol] 0.30 mg/dL 0.20-1.00 [facility] Work Phone: Comment on above: For patients on eltr ombopag therapy, use of Dimension [place] TBIL is not recommended. Chloride [Moles/Vol] 110 mmol/L 98-107 [facility] Work Phone: Eosinophils/100 WBC (Bld) 5.1 % 0-5 [facility] Work Phone: Glucose [Mass/Vol] 99 mg/dL 74-106 [facility] Work Phone: Neutrophils (Bld) [#/Vol] 3.2 10*3/uL 2.0-7.7 [facility] Work Phone: Neutrophils/100 WBC (Bld) 58.8 % 47-70 [facility] Work Phone: Potassium [Moles/Vol] 3.7 mmol/L 3.5-5.1 [facility] Work Phone: Protein [Mass/Vol] 5.7 g/dL 6.4-8.2 [facility] Work Phone: Sodium [Moles/Vol] 142 mmol/L 136-145 [facility] Work Phone: WBC (Bld) [#/Vol] 5.5 10*3/uL 4.4-11.0 [facility] Work Phone: Basophils/100 WBC (Bld) 0.5 % 0-1 [facility] Work Phone: Chloride [Moles/Vol] 109 mmol/L 98-107 [facility] Work Phone: Eosinophils/100 WBC (Bld) 2.8 % 0-5 [facility] Work Phone: Glucose [Mass/Vol] 119 mg/dL 74-106 [facility] Work Phone: Comment on above: Fasting Glucose resu lt from 100 to 125 mg/dL suggests IMPAIRED HOMEOSTASIS per A.D.A. criteria. Neutrophils (Bld) [#/Vol] 8.8 10*3/uL 2.0-7.7 [facility] Work Phone: Neutrophils/100 WBC (Bld) 77.0 % 47-70 [facility] Work Phone: Potassium [Moles/Vol] 3.7 mmol/L 3.5-5.1 [facility] Work Phone: Sodium [Moles/Vol] 140 mmol/L 136-145 [facility] Work Phone: WBC (Bld) [#/Vol] 11.5 10*3/uL 4.4-11.0 [facility] Work Phone: Blood erythrocytes count (nu mber/volume)on 10-14-2021 RBC (Bld) [#/Vol] 3.42 10*6/uL 4.2-5.4 [facility] Work Phone: RBC (Bld) [#/Vol] 3.89 10*6/uL 4.2-5.4 [facility] Work Phone: Blood hemoglobin measurement (mass/volume)on 10-14-2021 Hemoglobin (Bld) [Mass/Vol] 8.3 g/dL 12.0-15.0 [facility] Work Phone: Hemoglobin (Bld) [Mass/Vol] 9.8 g/dL 12.0-15.0 [facility] Work Phone: Blood lymphocytes/100 leukoc yteson 10-14-2021 Lymphocytes/100 WBC (Bld) 25.3 % 19-41 [facility] Work Phone: Lymphocytes/100 WBC (Bld) 14.0 % 19-41 [facility] Work Phone: Blood monocytes/100 leukocyt eson 10-14-2021 Monocytes/100 WBC (Bld) 9.5 % 0-10 [facility] Work Phone: Monocytes/100 WBC (Bld) 5.4 % 0-10 [facility] Work Phone: Blood platelet mean volumeon 10-14-2021 Platelet mean volume (Bld) [Entitic vol] 9.7 fL 6.2-12.0 [facility] Work Phone: Platelet mean volume (Bld) [Entitic vol] 9.6 fL 6.2-12.0 [facility] Work Phone: Determination of erythrocyte mean corpuscular volume (MCV)on 10-14-2021 MCV (RBC) [Entitic vol] 81.0 fL 81-99 [facility] Work Phone: Comment on above: Delta: 76.3 on 10/14 MCV (RBC) [Entitic vol] 76.3 fL 81-99 [facility] Work Phone: Hematocrit Auto (Bld) [Volum e fraction]on 10-14-2021 Hematocrit (Bld) [Volume fraction] 27.7 % 37-47 [facility] Work Phone: Hematocrit (Bld) [Volume fraction] 29.7 % 37-47 [facility] Work Phone: Laboratory - Chemistry and C hemistry - challengeon 10-14-2021 ALP [Catalytic activity/Vol] 46 U/L 45-117 [facility] Work Phone: ALT [Catalytic activity/Vol] 18 U/L 13-56 [facility] Work Phone: CO2 [Moles/Vol] 29.0 mmol/L 21.0-32.0 [facility] Work Phone: Globulin (S) [Mass/Vol] 2.7 g/dL 2.2-4.2 [facility] Work Phone: Urea nitrogen/Creatinine [Mass ratio] 7.0 mg/mg 10-20 [facility] Work Phone: CO2 [Moles/Vol] 23.0 mmol/L 21.0-32.0 [facility] Work Phone: Urea nitrogen/Creatinine [Mass ratio] 12.8 mg/mg 10-20 [facility] Work Phone: Laboratory - Hematology and Cell countson 10-14-2021 Erythrocyte distribution width (RBC) [Entitic vol] 48.4 fL 35.1-43.9 [facility] Work Phone: Erythrocyte distribution width (RBC) [Ratio] 16.5 % 11.6-14.6 [facility] Work Phone: Immature granulocytes/100 WBC (Bld) 0.400 % 0.0-0.9 [facility] Work Phone: Comment on above: IG% - Immature Granu locytes (promyelocytes, myelocytes and metamyelocytes) > 1% indicates that a LEFT SHIFT is Present. MCH (RBC) [Entitic mass] 24.3 pg 27.0-32.0 [facility] Work Phone: Nucleated RBC/100 WBC (Bld) [Ratio] 0 % 0-5 [facility] Work Phone: Erythrocyte distribution width (RBC) [Entitic vol] 43.8 fL 35.1-43.9 [facility] Work Phone: Erythrocyte distribution width (RBC) [Ratio] 16.2 % 11.6-14.6 [facility] Work Phone: Immature granulocytes/100 WBC (Bld) 0.300 % 0.0-0.9 [facility] Work Phone: Comment on above: IG% - Immature Granu locytes (promyelocytes, myelocytes and metamyelocytes) > 1% indicates that a LEFT SHIFT is Present. MCH (RBC) [Entitic mass] 25.2 pg 27.0-32.0 [facility] Work Phone: Nucleated RBC/100 WBC (Bld) [Ratio] 0 % 0-5 [facility] Work Phone: MCHC Auto (RBC) [Mass/Vol]on 10-14-2021 MCHC (RBC) [Mass/Vol] 30.0 g/dL 32-36 [facility] Work Phone: Comment on above: Delta: 33.0 on 10/14 MCHC (RBC) [Mass/Vol] 33.0 g/dL -36 [facility] Work Phone: No Panel Informationon 10-14 Estimated GFR (MDRD) Amer 77 mL/min >60 [facility] Work Phone: Comment on above: GFR Calc Estimated GFR (MDRD) Non-Af Amer 64 mL/min >60 [facility] Work Phone: Comment on above: Non- GFR Calc Estimated Creatinine Clearance Calc 98.94 ml/min [facility] Work Phone: Estimated GFR (MDRD) Amer 96 mL/min >60 [facility] Work Phone: Comment on above: GFR Calc Estimated GFR (MDRD) Non-Af Amer 80 mL/min >60 [facility] Work Phone: Comment on above: Non- GFR Calc Platelets bldon 10-14-2021 Platelets (Bld) [#/Vol] 201 10*3/uL 150-450 [facility] Work Phone: Platelets (Bld) [#/Vol] 262 10*3/uL 150-450 [facility] Work Phone: Serum or plasma albumin justice urement (mass/volume)on 10-14-2021 Albumin [Mass/Vol] 3.0 g/dL 3.2-5.0 [facility] Work Phone: Serum or plasma albumin/glob ulin mass ratioon 10-14-2021 Albumin/Globulin [Mass ratio] 1.1 {ratio} 0.9-2.4 [facility] Work Phone: Serum or plasma calcium justice urement (mass/volume)on 10-14-2021 Calcium [Mass/Vol] 8.3 mg/dL 8.5-10.1 [facility] Work Phone: Calcium [Mass/Vol] 8.8 mg/dL 8.5-10.1 [facility] Work Phone: Serum or plasma creatinine m easurement (mass/volume)on 10-14-2021 Creatinine [Mass/Vol] 1.14 mg/dL 0.55-1.02 [facility] Work Phone: Comment on above: The validity of the calculated GFR & GFRAA in patients over 70 years has not been determined. Clinical correlation is essential. Creatinine [Mass/Vol] 0.94 mg/dL 0.55-1.02 [facility] Work Phone: Comment on above: The validity of the calculated GFR & GFRAA in patients over 70 years has not been determined. Clinical correlation is essential. Serum or plasma urea nitroge n measurement (mass/volume)on 10-14-2021 Urea nitrogen [Mass/Vol] 8 mg/dL 03-24 [facility] Work Phone: Urea nitrogen [Mass/Vol] 12 mg/dL 03-24 [facility] Work Phone: Thin prep Papanicolaou smear with manual screeningon 10-14-2021 Thin prep Papanicolaou smear with manual screening 11 U/L 15-37 [facility] Work Phone: Thin prep Papanicolaou smear with manual screening 3 5-15 [facility] Work Phone: Thin prep Papanicolaou smear with manual screening 8 5-15 [facility] Work Phone: Basic Metabolic Panelon Calcium [Mass/Vol] 9.1 mg/dL Normal 8.4-10.4 [facility] Comment on above: Performed By: #### H CHELSY BMP3M ####[address] [place] [address] Glucose [Mass/Vol] 90 mg/dL Normal 70-100 [facility] Comment on above: Performed By: #### H CHELSY BMP3M ####[address] [place], [place] Anion gap [Moles/Vol] 4 mmol/L Normal 3-13 [facility] Comment on above: Performed By: #### H GURMEET VALENTINO3M ####[id number] [place], [place] CO2 [Moles/Vol] 27 mmol/L Normal 22-30 [facility] Comment on above: Performed By: #### H GURMEET VALENTINO3M ####[address] [place], [place] Creatinine [Mass/Vol] 0.45 mg/dL Low 0.52-1.25 [facility] Comment on above: Performed By: #### H GURMEET VALENTINO3M ####[address] [place], [place] eGFR OTHER > 90.0 Normal >60 [facility] Comment on above: Result Comment: KDIG O guidelines provide the following GFR categories:Stage GFR(ml/min/1.73 m2) TermsG1 >=90 Normal or highG2 60-89 Mildly decreased*G3a 45-59 Mildly to moderately [id number] 30-44 Moderately to severely decreasedG4 15-29 Severely decreasedG5 <15 Kidney failure*Relative to young adult level.In the absence of evidence of kidney damage, neither GFRcategory G1 nor G2 fulfill the criteria for CKD.The CKD-EPI equation is validated in individuals 18 yearsof age and older. Currently the best equation forestimating glomerular filtration rate (GFR) from serumcreatinine in children is the Bedside Boyer equation.It is less accurate in patients with extremes of musclemass, restriction of dietary protein, ingestion of creatine,extra-renal metabolism of creatinine, or treatment withmedications that affect renal tubular creatinine secretion. Performed By: #### H GURMEET VALENTINO3M ####[facility] [id number] [place], [place] GFR/1.73 sq M.predicted among blacks MDRD (S/P/Bld) [Vol rate/Area] mL/min/{1.73_m2} Normal >60 [facility] Comment on above: Performed By: #### H GURMEET VALENTINO3M ####[address] [place], [place] Urea nitrogen [Mass/Vol] 8 mg/dL Low 9-20 [facility] Comment on above: Performed By: #### H CHELSY BMP3M ####[address] [place], [place] Chloride [Moles/Vol] 104 mmol/L Normal 98-107 [facility] Comment on above: Performed By: #### H CHELSY BMP3M ####[address] Potassium [Moles/Vol] 4.3 mmol/L Normal 3.5-5.1 [facility] Comment on above: Performed By: #### H CHELSY BMP3M ####[address] Sodium [Moles/Vol] 135 mmol/L Normal 135-145 [facility] Comment on above: Performed By: #### H CHELSY BMP3M ####[address] CULTURE BLOODon 10-11-2021 Microscopic examination of blood, culture CULTURE BLOOD --> Status: F No growth at 5 days. Normal [facility] Comment on above: Performed By: #### C /BLD ####[address] CULTURE BLOOD (Two)on 2021 Microscopic examination of blood, culture CULTURE BLOOD (Two) --> Status: F No growth at 5 days. Normal [facility] Comment on above: Performed By: #### C /BLT ####[address] Hemogram w/ Autodiffon 10-11 Abs Baso Cnt 0.0 10*3/uL Normal 0.0-0.2 [facility] Comment on above: Performed By: #### H CHELSY BMP3M ####[address] [place], [place] Abs Neutrophile Cnt 2.5 10*3/uL Normal 1.8-7.0 [facility] Comment on above: Performed By: #### H GURMEET VALENTINO3M ####[address] [place] [address] Basophils/100 WBC (Bld) 0.7 % Normal 0.0-2.0 [facility] Comment on above: Performed By: #### H CHELSY BMP3M ####[address] [address] Eosinophils (Bld) [#/Vol] 0.2 10*3/uL Normal 0.0-0.5 [facility] Comment on above: Performed By: #### H CHELSY BMP3M ####[address] [address] Eosinophils/100 WBC (Bld) 4.3 % Normal 1.0-6.0 [facility] Comment on above: Performed By: #### H CHELSY BMP3M ####[address] Erythrocyte distribution width (RBC) [Ratio] 16.4 % High 11.5-14.5 [facility] Comment on above: Performed By: #### H CHELSY BMP3M ####[address] [address] Granulocytes/100 WBC (Bld) 52.9 % Normal 40.0-80.0 [facility] Comment on above: Performed By: #### H CHELSY BMP3M ####[address] [address] Hematocrit (Bld) [Volume fraction] 30.4 % Low 35.0-47.0 [facility] Comment on above: Performed By: #### H CHELSY BMP3M ####[address] [place] [address] Hemoglobin (Bld) [Mass/Vol] 9.4 g/dL Low 11.7-16.0 [facility] Comment on above: Performed By: #### H CHELSY BMP3M ####[address] [place], [place] Lymphocytes (Bld) [#/Vol] 1.7 10*3/uL Normal 1.0-4.3 [facility] Comment on above: Performed By: #### H EMDF, BMP3M ####[address] [place], [place] Lymphocytes/100 WBC (Bld) 35.2 % Normal 20.0-40.0 [facility] Comment on above: Performed By: #### H EMDF BMP3M ####[address] [place], [place] MCH (RBC) [Entitic mass] 24.0 pg Low 26.0-34.0 [facility] Comment on above: Performed By: #### H EMDF BMP3M ####[address] MCHC 31.0 % Low 32.0-36.0 [facility] Comment on above: Performed By: #### H EMDF BMP3M ####[address] [place], [place] MCV (RBC) [Entitic vol] 77.6 fL Low 79.0-98.0 [facility] Comment on above: Performed By: #### H EMDF BMP3M ####[address] [place], [place] Monocytes (Bld) [#/Vol] 0.3 10*3/uL Normal 0.0-0.8 [facility] Comment on above: Performed By: #### H EMDF, BMP3M ####[address] Monocytes/100 WBC (Bld) 6.9 % Normal 2.0-10.0 [facility] Comment on above: Performed By: #### H EMDF, BMP3M ####[address] Platelet mean volume (Bld) [Entitic vol] 7.6 fL Normal 7.4-10.4 [facility] Comment on above: Performed By: #### H CHELSY BMP3M ####[address] [place], [place] Platelets (Bld) [#/Vol] 210 10*3/uL Normal 140-440 [facility] Comment on above: Performed By: #### H CHELSY BMP3M ####[address] [place] RBC (Bld) [#/Vol] 3.92 10*6/uL Normal 3.80-5.20 [facility] Comment on above: Performed By: #### H CHELSY BMP3M ####[address] [place], [place] WBC (Bld) [#/Vol] 4.8 10*3/uL Normal 3.6-10.7 [facility] Comment on above: Performed By: #### H EMDLindsey BMP3M ####[address] [place], [place] Phosphoruson 10-11-2021 Phosphate [Mass/Vol] 4.7 mg/dL High 2.5-4.5 [facility] Comment on above: Performed By: #### P HOS3 ####[address] [place], [place] Basic Metabolic Panelon Calcium [Mass/Vol] 8.7 mg/dL Normal 8.4-10.4 [facility] Comment on above: Performed By: #### H EMDF, PHOS3, BMP3M ####[address] [place], [place] Glucose [Mass/Vol] 96 mg/dL Normal 70-100 [facility] Comment on above: Performed By: #### H EMDF, PHOS3, BMP3M ####[address] [place], [place] Anion gap [Moles/Vol] 5 mmol/L Normal 3-13 [facility] Comment on above: Performed By: #### H EMDF, PHOS3, BMP3M ####[facility] [place] CO2 [Moles/Vol] 28 mmol/L Normal 22-30 [facility] Comment on above: Performed By: #### H EMDF, PHOS3, BMP3M ####[facility] [id number] [place] Creatinine [Mass/Vol] 0.53 mg/dL Normal 0.52-1.25 [facility] Comment on above: Performed By: #### H EMDF, PHOS3, BMP3M ####[facility] [address] [place], [place] eGFR OTHER > 90.0 Normal >60 [facility] Comment on above: Result Comment: KDIG O guidelines provide the following GFR categories:Stage GFR(ml/min/1.73 m2) TermsG1 >=90 Normal or highG2 60-89 Mildly decreased*G3a 45-59 Mildly to moderately [id number] 30-44 Moderately to severely decreasedG4 15-29 Severely decreasedG5 <15 Kidney failure*Relative to young adult level.In the absence of evidence of kidney damage, neither GFRcategory G1 nor G2 fulfill the criteria for CKD.The CKD-EPI equation is validated in individuals 18 yearsof age and older. Currently the best equation forestimating glomerular filtration rate (GFR) from serumcreatinine in children is the Bedside Boyer equation.It is less accurate in patients with extremes of musclemass, restriction of dietary protein, ingestion of creatine,extra-renal metabolism of creatinine, or treatment withmedications that affect renal tubular creatinine secretion. Performed By: #### H EMDF, PHOS3, BMP3M ####[facility] [address] [place] GFR/1.73 sq M.predicted among blacks MDRD (S/P/Bld) [Vol rate/Area] mL/min/{1.73_m2} Normal >60 [facility] Comment on above: Performed By: #### H EMDF, PHOS3, BMP3M ####[facility] [address] [place] Urea nitrogen [Mass/Vol] 11 mg/dL Normal 9-20 [facility] Comment on above: Performed By: #### H EMDF, PHOS3, BMP3M ####[address] [place], [place] Chloride [Moles/Vol] 105 mmol/L Normal 98-107 [facility] Comment on above: Performed By: #### H EMDF, PHOS3, BMP3M ####[address] Potassium [Moles/Vol] 4.1 mmol/L Normal 3.5-5.1 [facility] Comment on above: Result Comment: Slig htly hemolysed, interpret with caution. Performed By: #### H EMDF, PHOS3, BMP3M ####[address] Sodium [Moles/Vol] 137 mmol/L Normal 135-145 [facility] Comment on above: Performed By: #### H EMDF, PHOS3, BMP3M ####[address] Hemogram w/ Autodiffon 10-10 Abs Baso Cnt 0.0 10*3/uL Normal 0.0-0.2 [facility] Comment on above: Performed By: #### H EMDF, PHOS3, BMP3M ####[address] Abs Neutrophile Cnt 2.2 10*3/uL Normal 1.8-7.0 [facility] Comment on above: Performed By: #### H EMDF, PHOS3, BMP3M ####[address] Basophils/100 WBC (Bld) 0.7 % Normal 0.0-2.0 [facility] Comment on above: Performed By: #### H EMDF, PHOS3, BMP3M ####[address] [address] Eosinophils (Bld) [#/Vol] 0.2 10*3/uL Normal 0.0-0.5 [facility] Comment on above: Performed By: #### H EMDLindsey PHOS3, BMP3M ####[address] Eosinophils/100 WBC (Bld) 4.4 % Normal 1.0-6.0 [facility] Comment on above: Performed By: #### H EMDLindsey PHOS3, BMP3M ####[address] Erythrocyte distribution width (RBC) [Ratio] 16.6 % High 11.5-14.5 [facility] Comment on above: Performed By: #### H EMDLindsey, PHOS3, BMP3M ####[address] Granulocytes/100 WBC (Bld) 45.9 % Normal 40.0-80.0 [facility] Comment on above: Performed By: #### H EMDF, PHOS3, BMP3M ####[address] Hematocrit (Bld) [Volume fraction] 29.6 % Low 35.0-47.0 [facility] Comment on above: Performed By: #### H EMDF, PHOS3, BMP3M ####[address] Hemoglobin (Bld) [Mass/Vol] 9.5 g/dL Low 11.7-16.0 [facility] Comment on above: Performed By: #### H EMDF, PHOS3, BMP3M ####[address] Lymphocytes (Bld) [#/Vol] 2.0 10*3/uL Normal 1.0-4.3 [facility] Comment on above: Performed By: #### H EMDF, PHOS3, BMP3M ####[address] Lymphocytes/100 WBC (Bld) 42.0 % High 20.0-40.0 [facility] Comment on above: Performed By: #### H EMDLindsey PHOS3, BMP3M ####[address] [place], [place] MCH (RBC) [Entitic mass] 25.1 pg Low 26.0-34.0 [facility] Comment on above: Performed By: #### H EMDLindsey PHOS3, BMP3M ####[address] MCHC 32.1 % Normal 32.0-36.0 [facility] Comment on above: Performed By: #### H CHELSY, PHOS3, BMP3M ####[address] MCV (RBC) [Entitic vol] 78.2 fL Low 79.0-98.0 [facility] Comment on above: Performed By: #### H EMDLindsey PHOS3, BMP3M ####[address] Monocytes (Bld) [#/Vol] 0.3 10*3/uL Normal 0.0-0.8 [facility] Comment on above: Performed By: #### H EMDLindsey, PHOS3, BMP3M ####[address] Monocytes/100 WBC (Bld) 7.0 % Normal 2.0-10.0 [facility] Comment on above: Performed By: #### H EMDF, PHOS3, BMP3M ####[address] Platelet mean volume (Bld) [Entitic vol] 7.9 fL Normal 7.4-10.4 [facility] Comment on above: Performed By: #### H EMDF, PHOS3, BMP3M ####[address] Platelets (Bld) [#/Vol] 198 10*3/uL Normal 140-440 [facility] Comment on above: Performed By: #### H EMDF, PHOS3, BMP3M ####[address] [place] [place], [place] RBC (Bld) [#/Vol] 3.79 10*6/uL Low 3.80-5.20 [facility] Comment on above: Performed By: #### H EMDF, PHOS3, BMP3M ####[address] [place], [place] WBC (Bld) [#/Vol] 4.9 10*3/uL Normal 3.6-10.7 [facility] Comment on above: Performed By: #### H EMDF, PHOS3, BMP3M ####[address] [place], [place] Phosphoruson --2021 Phosphate [Mass/Vol] 4.4 mg/dL Normal 2.5-4.5 [facility] Comment on above: Result Comment: Slig htly hemolysed, interpret with caution. Performed By: #### H EMDF, PHOS3, BMP3M ####[address] [place], [place] Basic Metabolic Panelon - Anion gap [Moles/Vol] 4 mmol/L Normal 3-13 [facility] Comment on above: Performed By: #### B MP3M, PCAL, PHOS3, HEMDF, MG3 ####[address] [place], [place] Calcium [Mass/Vol] 8.4 mg/dL Normal 8.4-10.4 [facility] Comment on above: Performed By: #### B MP3M, PCAL, PHOS3, HEMDF, MG3 ####[address] [place], [place] CO2 [Moles/Vol] 29 mmol/L Normal 22-30 [facility] Comment on above: Performed By: #### B MP3M, PCAL, PHOS3, HEMDF, MG3 ####[address] [place], [place] Glucose [Mass/Vol] 134 mg/dL High 70-100 [facility] Comment on above: Performed By: #### B MP3M, PCAL, PHOS3, HEMDF, MG3 ####[facility] [place] Urea nitrogen [Mass/Vol] 11 mg/dL Normal 9-20 [facility] Comment on above: Performed By: #### B MP3M, PCAL, PHOS3, HEMDF, MG3 ####[address] [place], [place] Creatinine [Mass/Vol] 0.60 mg/dL Normal 0.52-1.25 [facility] Comment on above: Performed By: #### B MP3M, PCAL, PHOS3, HEMDF, MG3 ####[address] [place] eGFR OTHER > 90.0 Normal >60 [facility] Comment on above: Result Comment: KDIG O guidelines provide the following GFR categories:Stage GFR(ml/min/1.73 m2) TermsG1 >=90 Normal or highG2 60-89 Mildly decreased*G3a 45-59 Mildly to moderately [id number] 30-44 Moderately to severely decreasedG4 15-29 Severely decreasedG5 <15 Kidney failure*Relative to young adult level.In the absence of evidence of kidney damage, neither GFRcategory G1 nor G2 fulfill the criteria for CKD.The CKD-EPI equation is validated in individuals 18 yearsof age and older. Currently the best equation forestimating glomerular filtration rate (GFR) from serumcreatinine in children is the Bedside Boyer equation.It is less accurate in patients with extremes of musclemass, restriction of dietary protein, ingestion of creatine,extra-renal metabolism of creatinine, or treatment withmedications that affect renal tubular creatinine secretion. Performed By: #### B MP3M, PCAL, PHOS3, HEMDF, MG3 ####[facility] [id number] [place], [place] GFR/1.73 sq M.predicted among blacks MDRD (S/P/Bld) [Vol rate/Area] mL/min/{1.73_m2} Normal >60 [facility] Comment on above: Performed By: #### B MP3M, PCAL, PHOS3, HEMDF, MG3 ####[address] [place], [place] Potassium [Moles/Vol] 3.3 mmol/L Low 3.5-5.1 [facility] Comment on above: Performed By: #### B MP3M, PCAL, PHOS3, HEMDF, MG3 ####[address] Chloride [Moles/Vol] 101 mmol/L Normal 98-107 [facility] Comment on above: Performed By: #### B MP3M, PCAL, PHOS3, HEMDF, MG3 ####[address] Sodium [Moles/Vol] 135 mmol/L Normal 135-145 [facility] Comment on above: Performed By: #### B MP3M, PCAL, PHOS3, HEMDF, MG3 ####[address] Hemogram w/ Autodiffon 10-09 Abs Baso Cnt 0.0 10*3/uL Normal 0.0-0.2 [facility] Comment on above: Performed By: #### B MP3M, PCAL, PHOS3, HEMDF, MG3 ####[address] [place], [place] Abs Neutrophile Cnt 2.5 10*3/uL Normal 1.8-7.0 [facility] Comment on above: Performed By: #### B MP3M, PCAL, PHOS3, HEMDF, MG3 ####[address] Basophils/100 WBC (Bld) 0.6 % Normal 0.0-2.0 [facility] Comment on above: Performed By: #### B MP3M, PCAL, PHOS3, HEMDF, MG3 ####[address] Eosinophils (Bld) [#/Vol] 0.2 10*3/uL Normal 0.0-0.5 [facility] Comment on above: Performed By: #### B MP3M, PCAL, PHOS3, HEMDF, MG3 ####[address] [place], [place] Eosinophils/100 WBC (Bld) 4.4 % Normal 1.0-6.0 [facility] Comment on above: Performed By: #### B MP3M, PCAL, PHOS3, HEMDF, MG3 ####[address] [place], [place] Erythrocyte distribution width (RBC) [Ratio] 16.5 % High 11.5-14.5 [facility] Comment on above: Performed By: #### B MP3M, PCAL, PHOS3, HEMDF, MG3 ####[address] [place], [place] Granulocytes/100 WBC (Bld) 48.4 % Normal 40.0-80.0 [facility] Comment on above: Performed By: #### B MP3M, PCAL, PHOS3, HEMDF, MG3 ####[address] [place], [place] Hematocrit (Bld) [Volume fraction] 30.4 % Low 35.0-47.0 [facility] Comment on above: Performed By: #### B MP3M, PCAL, PHOS3, HEMDF, MG3 ####[address] [place], [place] Hemoglobin (Bld) [Mass/Vol] 9.6 g/dL Low 11.7-16.0 [facility] Comment on above: Performed By: #### B MP3M, PCAL, PHOS3, HEMDF, MG3 ####[address] [place], [place] Lymphocytes (Bld) [#/Vol] 1.9 10*3/uL Normal 1.0-4.3 [facility] Comment on above: Performed By: #### B MP3M, PCAL, PHOS3, HEMDF, MG3 ####[address] [place], [place] Lymphocytes/100 WBC (Bld) 38.1 % Normal 20.0-40.0 [facility] Comment on above: Performed By: #### B MP3M, PCAL, PHOS3, HEMDF, MG3 ####[address] [place], [place] MCH (RBC) [Entitic mass] 24.6 pg Low 26.0-34.0 [facility] Comment on above: Performed By: #### B MP3M, PCAL, PHOS3, HEMDF, MG3 ####[address] [place], [place] MCHC 31.5 % Low 32.0-36.0 [facility] Comment on above: Performed By: #### B MP3M, PCAL, PHOS3, HEMDF, MG3 ####[address] [place], [place] MCV (RBC) [Entitic vol] 77.9 fL Low 79.0-98.0 [facility] Comment on above: Performed By: #### B MP3M, PCAL, PHOS3, HEMDF, MG3 ####[address] [place], [place] Monocytes (Bld) [#/Vol] 0.4 10*3/uL Normal 0.0-0.8 [facility] Comment on above: Performed By: #### B MP3M, PCAL, PHOS3, HEMDF, MG3 ####[address] [place], [place] Monocytes/100 WBC (Bld) 8.5 % Normal 2.0-10.0 [facility] Comment on above: Performed By: #### B MP3M, PCAL, PHOS3, HEMDF, MG3 ####[address] [place], [place] Platelet mean volume (Bld) [Entitic vol] 7.7 fL Normal 7.4-10.4 [facility] Comment on above: Performed By: #### B MP3M, PCAL, PHOS3, HEMDF, MG3 ####[address] [place] [address] Platelets (Bld) [#/Vol] 228 10*3/uL Normal 140-440 [facility] Comment on above: Performed By: #### B MP3M, PCAL, PHOS3, HEMDF, MG3 ####[address] [place], [place] RBC (Bld) [#/Vol] 3.90 10*6/uL Normal 3.80-5.20 [facility] Comment on above: Performed By: #### B MP3M, PCAL, PHOS3, HEMDF, MG3 ####[address] [place] WBC (Bld) [#/Vol] 5.1 10*3/uL Normal 3.6-10.7 [facility] Comment on above: Performed By: #### B MP3M, PCAL, PHOS3, HEMDF, MG3 ####[address] [place] [address] Magnesiumon 10-09-2021 Magnesium [Mass/Vol] 2.1 mg/dL Normal 1.6-2.3 [facility] Comment on above: Performed By: #### B MP3M, PCAL, PHOS3, HEMDF, MG3 ####[address] [place] [address] Phosphoruson 10-09-2021 Phosphate [Mass/Vol] 4.1 mg/dL Normal 2.5-4.5 [facility] Comment on above: Performed By: #### B MP3M, PCAL, PHOS3, HEMDF, MG3 ####[address] [place] [address] Procalcitoninon 10-09-2021 Procalcitonin 1.99 ng/mL High 0.00-0.09 [facility] Comment on above: Performed By: #### B MP3M, PCAL, PHOS3, HEMDF, MG3 ####[address] [place], [place] Interpretation See Below Normal [facility] Comment on above: Result Comment: PCT <0.50 = Low risk of severe sepsis and/or septic shock.PCT >2.00 = High risk of severe sepsis and/or septic shock. Performed By: #### B MP3M, PCAL, PHOS3, HEMDF, MG3 ####[address] [place], [place] Basic Metabolic Panelon 02-0 Calcium [Mass/Vol] 8.6 mg/dL Normal 8.4-10.4 [facility] Comment on above: Performed By: #### M G3, PHOS3, BMP3M ####[address] [place], [place] Glucose [Mass/Vol] 95 mg/dL Normal 70-100 [facility] Comment on above: Performed By: #### M G3, PHOS3, BMP3M ####[address] [place], [place] Anion gap [Moles/Vol] 5 mmol/L Normal 3-13 [facility] Comment on above: Performed By: #### M G3, PHOS3, BMP3M ####[address] [place], [place] CO2 [Moles/Vol] 27 mmol/L Normal 22-30 [facility] Comment on above: Performed By: #### M G3, PHOS3, BMP3M ####[address] [place], [place] Creatinine [Mass/Vol] 0.45 mg/dL Low 0.52-1.25 [facility] Comment on above: Performed By: #### M G3, PHOS3, BMP3M ####[address] [place], [place] eGFR OTHER > 90.0 Normal >60 [facility] Comment on above: Result Comment: KDIG O guidelines provide the following GFR categories:Stage GFR(ml/min/1.73 m2) TermsG1 >=90 Normal or highG2 60-89 Mildly decreased*G3a 45-59 Mildly to moderately [id number] 30-44 Moderately to severely decreasedG4 15-29 Severely decreasedG5 <15 Kidney failure*Relative to young adult level.In the absence of evidence of kidney damage, neither GFRcategory G1 nor G2 fulfill the criteria for CKD.The CKD-EPI equation is validated in individuals 18 yearsof age and older. Currently the best equation forestimating glomerular filtration rate (GFR) from serumcreatinine in children is the Bedside Boyer equation.It is less accurate in patients with extremes of musclemass, restriction of dietary protein, ingestion of creatine,extra-renal metabolism of creatinine, or treatment withmedications that affect renal tubular creatinine secretion. Performed By: #### M G3, PHOS3, BMP3M ####[facility] [id number] [place], [place] GFR/1.73 sq M.predicted among blacks MDRD (S/P/Bld) [Vol rate/Area] mL/min/{1.73_m2} Normal >60 [facility] Comment on above: Performed By: #### M G3 PHOS3, BMP3M ####[facility] [id number] [place], [place] Urea nitrogen [Mass/Vol] 5 mg/dL Low 9-20 [facility] Comment on above: Performed By: #### M G3, PHOS3, BMP3M ####[facility] [id number] [place] Chloride [Moles/Vol] 103 mmol/L Normal 98-107 [facility] Comment on above: Performed By: #### M G3, PHOS3, BMP3M ####[facility] [id number] [place], [place] Potassium [Moles/Vol] 3.5 mmol/L Normal 3.5-5.1 [facility] Comment on above: Performed By: #### M G3, PHOS3, BMP3M ####[facility] [id number] [place], [place] Sodium [Moles/Vol] 135 mmol/L Normal 135-145 [facility] Comment on above: Performed By: #### M G3, PHOS3, BMP3M ####[address] [place], [place] CR Chest Portableon 10-08-19 22 CR Chest Portable Normal [facility] Echo Complete w/wo Contrasto n 10-08-2021 Echo Complete w/wo Contrast Normal [facility] Hemogram w/ Autodiffon 10-08 Abs Baso Cnt 0.0 10*3/uL Normal 0.0-0.2 [facility] Comment on above: Performed By: #### H EMDF ####[address] Abs Neutrophile Cnt 2.2 10*3/uL Normal 1.8-7.0 [facility] Comment on above: Performed By: #### H EMDF ####[address] Basophils/100 WBC (Bld) 0.5 % Normal 0.0-2.0 [facility] Comment on above: Performed By: #### H EMDF ####[address] Eosinophils (Bld) [#/Vol] 0.2 10*3/uL Normal 0.0-0.5 [facility] Comment on above: Performed By: #### H EMDF ####[address] Eosinophils/100 WBC (Bld) 4.3 % Normal 1.0-6.0 [facility] Comment on above: Performed By: #### H EMDF ####[address] Erythrocyte distribution width (RBC) [Ratio] 16.7 % High 11.5-14.5 [facility] Comment on above: Performed By: #### H EMDF ####[address] Granulocytes/100 WBC (Bld) 47.8 % Normal 40.0-80.0 [facility] Comment on above: Performed By: #### H EMDF ####[address] Hematocrit (Bld) [Volume fraction] 31.1 % Low 35.0-47.0 [facility] Comment on above: Performed By: #### H EMDF ####[address] Hemoglobin (Bld) [Mass/Vol] 10.0 g/dL Low 11.7-16.0 [facility] Comment on above: Performed By: #### H EMDF ####[address] Lymphocytes (Bld) [#/Vol] 1.8 10*3/uL Normal 1.0-4.3 [facility] Comment on above: Performed By: #### H EMDF ####[address] Lymphocytes/100 WBC (Bld) 38.8 % Normal 20.0-40.0 [facility] Comment on above: Performed By: #### H EMDF ####[address] MCH (RBC) [Entitic mass] 24.9 pg Low 26.0-34.0 [facility] Comment on above: Performed By: #### H EMDF ####[address] MCHC 32.1 % Normal 32.0-36.0 [facility] Comment on above: Performed By: #### H EMDF ####[address] MCV (RBC) [Entitic vol] 77.6 fL Low 79.0-98.0 [facility] Comment on above: Performed By: #### H EMDF ####[address] Monocytes (Bld) [#/Vol] 0.4 10*3/uL Normal 0.0-0.8 [facility] Comment on above: Performed By: #### H EMDF ####[address] Monocytes/100 WBC (Bld) 8.6 % Normal 2.0-10.0 [facility] Comment on above: Performed By: #### H EMDF ####[address] Platelet mean volume (Bld) [Entitic vol] 8.0 fL Normal 7.4-10.4 [facility] Comment on above: Performed By: #### H EMDF ####[address] Platelets (Bld) [#/Vol] 237 10*3/uL Normal 140-440 [facility] Comment on above: Performed By: #### H EMDF ####[address] RBC (Bld) [#/Vol] 4.00 10*6/uL Normal 3.80-5.20 [facility] Comment on above: Performed By: #### H EMDF ####[address] WBC (Bld) [#/Vol] 4.5 10*3/uL Normal 3.6-10.7 [facility] Comment on above: Performed By: #### H EMDF ####[address] Magnesiumon 10-08-2021 Magnesium [Mass/Vol] 1.9 mg/dL Normal 1.6-2.3 [facility] Comment on above: Performed By: #### M G3, PHOS3, BMP3M ####[address] Phosphoruson 10-08-2021 Phosphate [Mass/Vol] 4.1 mg/dL Normal 2.5-4.5 [facility] Comment on above: Performed By: #### M G3, PHOS3, BMP3M ####[facility] [id number] [place], [place] VL Venous Duplex US Lower Ex t Bilateralon 10-08-2021 VL Venous Duplex US Lower Ext Bilateral Normal [facility] VL Venous Duplex US Upper Ex t Bilateralon 10-08-2021 VL Venous Duplex US Upper Ext Bilateral Normal [facility] Basic Metabolic Panelon 09-09 Calcium [Mass/Vol] 8.7 mg/dL Normal 8.4-10.4 [facility] Comment on above: Performed By: #### M G3, HEMDF, PHOS3, BMP3M ####[facility] [id number] [place], [place] Glucose [Mass/Vol] 90 mg/dL Normal 70-100 [facility] Comment on above: Performed By: #### M G3, HEMDF, PHOS3, BMP3M ####[facility] [id number] [place], [place] Anion gap [Moles/Vol] 4 mmol/L Normal 3-13 [facility] Comment on above: Performed By: #### M G3, HEMDF, PHOS3, BMP3M ####[facility] [id number] [place], [place] CO2 [Moles/Vol] 27 mmol/L Normal 22-30 [facility] Comment on above: Performed By: #### M G3, HEMDF, PHOS3, BMP3M ####[facility] [id number] [place], [place] Creatinine [Mass/Vol] 0.51 mg/dL Low 0.52-1.25 [facility] Comment on above: Performed By: #### M G3, HEMDF, PHOS3, BMP3M ####[facility] [id number] [place] eGFR OTHER > 90.0 Normal >60 [facility] Comment on above: Result Comment: KDIG O guidelines provide the following GFR categories:Stage GFR(ml/min/1.73 m2) TermsG1 >=90 Normal or highG2 60-89 Mildly decreased*G3a 45-59 Mildly to moderately [id number] 30-44 Moderately to severely decreasedG4 15-29 Severely decreasedG5 <15 Kidney failure*Relative to young adult level.In the absence of evidence of kidney damage, neither GFRcategory G1 nor G2 fulfill the criteria for CKD.The CKD-EPI equation is validated in individuals 18 yearsof age and older. Currently the best equation forestimating glomerular filtration rate (GFR) from serumcreatinine in children is the Bedside Boyer equation.It is less accurate in patients with extremes of musclemass, restriction of dietary protein, ingestion of creatine,extra-renal metabolism of creatinine, or treatment withmedications that affect renal tubular creatinine secretion. Performed By: #### M G3, HEMDF, PHOS3, BMP3M ####[facility] [id number] [place] [address] GFR/1.73 sq M.predicted among blacks MDRD (S/P/Bld) [Vol rate/Area] mL/min/{1.73_m2} Normal >60 [facility] Comment on above: Performed By: #### M G3, HEMDF, PHOS3, BMP3M ####[address] [place] [address] Urea nitrogen [Mass/Vol] 4 mg/dL Low 9-20 [facility] Comment on above: Performed By: #### M G3, HEMDF, PHOS3, BMP3M ####[address] [place] [address] Chloride [Moles/Vol] 105 mmol/L Normal 98-107 [facility] Comment on above: Performed By: #### M G3, HEMDF, PHOS3, BMP3M ####[address] [place] [address] Potassium [Moles/Vol] 3.4 mmol/L Low 3.5-5.1 [facility] Comment on above: Performed By: #### M G3, HEMDF, PHOS3, BMP3M ####[address] [place] [address] Sodium [Moles/Vol] 136 mmol/L Normal 135-145 [facility] Comment on above: Performed By: #### M G3, HEMDF, PHOS3, BMP3M ####[address] [place] [address] Hemogram w/ Autodiffon 10-07 Abs Baso Cnt 0.0 10*3/uL Normal 0.0-0.2 [facility] Comment on above: Performed By: #### M G3, HEMDF, PHOS3, BMP3M ####[address] [place], [place] Abs Neutrophile Cnt 3.1 10*3/uL Normal 1.8-7.0 [facility] Comment on above: Performed By: #### M G3, HEMDF, PHOS3, BMP3M ####[address] [place], [place] Basophils/100 WBC (Bld) 0.8 % Normal 0.0-2.0 [facility] Comment on above: Performed By: #### M G3, HEMDF, PHOS3, BMP3M ####[address] Eosinophils (Bld) [#/Vol] 0.2 10*3/uL Normal 0.0-0.5 [facility] Comment on above: Performed By: #### M G3, HEMDF, PHOS3, BMP3M ####[address] [place], [place] Eosinophils/100 WBC (Bld) 4.2 % Normal 1.0-6.0 [facility] Comment on above: Performed By: #### M G3, HEMDF, PHOS3, BMP3M ####[address] [place], [place] Erythrocyte distribution width (RBC) [Ratio] 16.1 % High 11.5-14.5 [facility] Comment on above: Performed By: #### M G3, HEMDF, PHOS3, BMP3M ####[address] [place] [address] Granulocytes/100 WBC (Bld) 58.5 % Normal 40.0-80.0 [facility] Comment on above: Performed By: #### M G3, HEMDF, PHOS3, BMP3M ####[address] [place], [place] Hematocrit (Bld) [Volume fraction] 31.7 % Low 35.0-47.0 [facility] Comment on above: Performed By: #### M G3, HEMDF, PHOS3, BMP3M ####[address] [place], [place] Hemoglobin (Bld) [Mass/Vol] 10.1 g/dL Low 11.7-16.0 [facility] Comment on above: Performed By: #### M G3, HEMDF, PHOS3, BMP3M ####[address] [place], [place] Lymphocytes (Bld) [#/Vol] 1.5 10*3/uL Normal 1.0-4.3 [facility] Comment on above: Performed By: #### M G3, HEMDF, PHOS3, BMP3M ####[address] Lymphocytes/100 WBC (Bld) 28.7 % Normal 20.0-40.0 [facility] Comment on above: Performed By: #### M G3, HEMDF, PHOS3, BMP3M ####[address] [place], [place] MCH (RBC) [Entitic mass] 24.7 pg Low 26.0-34.0 [facility] Comment on above: Performed By: #### M G3, HEMDF, PHOS3, BMP3M ####[address] [place] MCHC 32.0 % Normal 32.0-36.0 [facility] Comment on above: Performed By: #### M G3, HEMDF, PHOS3, BMP3M ####[address] [place], [place] MCV (RBC) [Entitic vol] 77.4 fL Low 79.0-98.0 [facility] Comment on above: Performed By: #### M G3, HEMDF, PHOS3, BMP3M ####[address] [place] [facility] Monocytes (Bld) [#/Vol] 0.4 10*3/uL Normal 0.0-0.8 [facility] Comment on above: Performed By: #### M G3, HEMDF, PHOS3, BMP3M ####[address] [place] [facility] [place] Monocytes/100 WBC (Bld) 7.8 % Normal 2.0-10.0 [facility] Comment on above: Performed By: #### M G3, HEMDF, PHOS3, BMP3M ####[address] [place] [place] Platelet mean volume (Bld) [Entitic vol] 7.7 fL Normal 7.4-10.4 [facility] Comment on above: Performed By: #### M G3, HEMDF, PHOS3, BMP3M ####[address] [place] [place] Platelets (Bld) [#/Vol] 221 10*3/uL Normal 140-440 [facility] Comment on above: Performed By: #### M G3, HEMDF, PHOS3, BMP3M ####[id number] [place], [place] RBC (Bld) [#/Vol] 4.10 10*6/uL Normal 3.80-5.20 [facility] Comment on above: Performed By: #### M G3, HEMDF, PHOS3, BMP3M ####[id number] [facility] [place] WBC (Bld) [#/Vol] 5.3 10*3/uL Normal 3.6-10.7 [facility] Comment on above: Performed By: #### M G3, HEMDF, PHOS3, BMP3M ####[id number] [place] [address] Magnesiumon 10-07-2021 Magnesium [Mass/Vol] 1.8 mg/dL Normal 1.6-2.3 [facility] Comment on above: Performed By: #### M G3, HEMDF, PHOS3, BMP3M ####[id number] [place] [address] Phosphoruson 10-07-2021 Phosphate [Mass/Vol] 3.2 mg/dL Normal 2.5-4.5 [facility] Comment on above: Performed By: #### M G3, HEMDF, PHOS3, BMP3M ####[id number] [place] [address] Basic Metabolic Panelon 09-09 Calcium [Mass/Vol] 8.7 mg/dL Normal 8.4-10.4 [facility] Comment on above: Performed By: #### M G3, PHOS3, BMP3M ####[id number] [place] [address] Glucose [Mass/Vol] 86 mg/dL Normal 70-100 [facility] Comment on above: Performed By: #### M G3, PHOS3, BMP3M ####[id number] [place] Anion gap [Moles/Vol] 5 mmol/L Normal 3-13 [facility] Comment on above: Performed By: #### M G3, PHOS3, BMP3M ####[id number] [place] [address] CO2 [Moles/Vol] 27 mmol/L Normal 22-30 [facility] Comment on above: Performed By: #### M G3, PHOS3, BMP3M ####[id number] [place] [address] Creatinine [Mass/Vol] 0.53 mg/dL Normal 0.52-1.25 [facility] [facility] Comment on above: Performed By: #### M G3, PHOS3, BMP3M ####[address] [place] [address] eGFR OTHER > 90.0 Normal >60 [facility] Comment on above: Result Comment: KDIG O guidelines provide the following GFR categories:Stage GFR(ml/min/1.73 m2) TermsG1 >=90 Normal or highG2 60-89 Mildly decreased*G3a 45-59 Mildly to moderately [id number] 30-44 Moderately to severely decreasedG4 15-29 Severely decreasedG5 <15 Kidney failure*Relative to young adult level.In the absence of evidence of kidney damage, neither GFRcategory G1 nor G2 fulfill the criteria for CKD.The CKD-EPI equation is validated in individuals 18 yearsof age and older. Currently the best equation forestimating glomerular filtration rate (GFR) from serumcreatinine in children is the Bedside Boyer equation.It is less accurate in patients with extremes of musclemass, restriction of dietary protein, ingestion of creatine,extra-renal metabolism of creatinine, or treatment withmedications that affect renal tubular creatinine secretion. Performed By: #### Peter G3, PHOS3, BMP3M ####[address] [place], [place] GFR/1.73 sq M.predicted among blacks MDRD (S/P/Bld) [Vol rate/Area] mL/min/{1.73_m2} Normal >60 [facility] Comment on above: Performed By: #### M G3, PHOS3, BMP3M ####[facility] [id number] [place], [place] Urea nitrogen [Mass/Vol] 3 mg/dL Low 9-20 [facility] Comment on above: Performed By: #### Peter G3, PHOS3, BMP3M ####[facility] [id number] [place], [place] Chloride [Moles/Vol] 104 mmol/L Normal 98-107 [facility] Comment on above: Performed By: #### M G3, PHOS3, BMP3M ####[address] [place], [place] Potassium [Moles/Vol] 3.1 mmol/L Low 3.5-5.1 [facility] Comment on above: Performed By: #### M G3, PHOS3, BMP3M ####[address] [place], [place] Sodium [Moles/Vol] 136 mmol/L Normal 135-145 [facility] Comment on above: Performed By: #### M G3, PHOS3, BMP3M ####[address] Hemogram w/ Autodiffon 10-06 Abs Baso Cnt 0.0 10*3/uL Normal 0.0-0.2 [facility] Comment on above: Performed By: #### H EMDF ####[address] Abs Neutrophile Cnt 2.8 10*3/uL Normal 1.8-7.0 [facility] Comment on above: Performed By: #### H EMDF ####[address] Basophils/100 WBC (Bld) 0.7 % Normal 0.0-2.0 [facility] Comment on above: Performed By: #### H EMDF ####[address] Eosinophils (Bld) [#/Vol] 0.2 10*3/uL Normal 0.0-0.5 [facility] Comment on above: Performed By: #### H EMDF ####[address] [place], [place] Eosinophils/100 WBC (Bld) 4.5 % Normal 1.0-6.0 [facility] Comment on above: Performed By: #### H EMDF ####[address] Erythrocyte distribution width (RBC) [Ratio] 15.8 % High 11.5-14.5 [facility] Comment on above: Performed By: #### H EMDF ####[address] Granulocytes/100 WBC (Bld) 52.4 % Normal 40.0-80.0 [facility] Comment on above: Performed By: #### H EMDF ####[address] [address] Hematocrit (Bld) [Volume fraction] 30.4 % Low 35.0-47.0 [facility] Comment on above: Performed By: #### H EMDF ####[address] Hemoglobin (Bld) [Mass/Vol] 9.9 g/dL Low 11.7-16.0 [facility] Comment on above: Performed By: #### H EMDF ####[address] Lymphocytes (Bld) [#/Vol] 1.8 10*3/uL Normal 1.0-4.3 [facility] Comment on above: Performed By: #### H EMDF ####[address] Lymphocytes/100 WBC (Bld) 35.1 % Normal 20.0-40.0 [facility] Comment on above: Performed By: #### H EMDF ####[address] MCH (RBC) [Entitic mass] 25.1 pg Low 26.0-34.0 [facility] Comment on above: Performed By: #### H EMDF ####[address] MCHC 32.7 % Normal 32.0-36.0 [facility] Comment on above: Performed By: #### H EMDF ####[address] MCV (RBC) [Entitic vol] 76.9 fL Low 79.0-98.0 [facility] Comment on above: Performed By: #### H EMDF ####[address] Monocytes (Bld) [#/Vol] 0.4 10*3/uL Normal 0.0-0.8 [facility] Comment on above: Performed By: #### H EMDF ####[address] Monocytes/100 WBC (Bld) 7.3 % Normal 2.0-10.0 [facility] Comment on above: Performed By: #### H EMDF ####[address] Platelet mean volume (Bld) [Entitic vol] 7.5 fL Normal 7.4-10.4 [facility] Comment on above: Performed By: #### H EMDF ####[address] Platelets (Bld) [#/Vol] 227 10*3/uL Normal 140-440 [facility] Comment on above: Performed By: #### H EMDF ####[address] RBC (Bld) [#/Vol] 3.95 10*6/uL Normal 3.80-5.20 [facility] Comment on above: Performed By: #### H EMDF ####[address] WBC (Bld) [#/Vol] 5.3 10*3/uL Normal 3.6-10.7 [facility] Comment on above: Performed By: #### H EMDF ####[address] Magnesiumon 10-06-2021 Magnesium [Mass/Vol] 1.8 mg/dL Normal 1.6-2.3 [facility] Comment on above: Performed By: #### M G3, PHOS3, BMP3M ####[address] Phosphoruson 10-06-2021 Phosphate [Mass/Vol] 3.6 mg/dL Normal 2.5-4.5 [facility] Comment on above: Performed By: #### M G3, PHOS3, BMP3M ####[address] Vancomycin Troughon 10-06-19 Vancomycin Trough 18.2 ug/mL Normal 15.0-20.0 [facility] Comment on above: Result Comment: . Performed By: #### V ANCT ####[address] [place], [place] Add on test from HISon 10-05 Add on test from HIS Accepted Normal [facility] Comment on above: Result Comment: Spec imen available & acceptable for analysis. Performed By: #### A DDON ####[address] [place] Add on test from HIS Accepted Normal [facility] Comment on above: Result Comment: Spec imen available & acceptable for analysis. Performed By: #### A DDON ####[address] [place], [place] Basic Metabolic Panelon 09-08 Anion gap [Moles/Vol] 7 mmol/L Normal 3-13 [facility] Comment on above: Performed By: #### M G3, BMP3M, LFT3, PCAL, PHOS3 ####[address] [facility], [place] Calcium [Mass/Vol] 8.9 mg/dL Normal 8.4-10.4 [facility] Comment on above: Performed By: #### M G3, BMP3M, LFT3, PCAL, PHOS3 ####[address] [place] CO2 [Moles/Vol] 22 mmol/L Normal 22-30 [facility] Comment on above: Performed By: #### M G3, BMP3M, LFT3, PCAL, PHOS3 ####[address] [facility] Glucose [Mass/Vol] 74 mg/dL Normal 70-100 [facility] Comment on above: Performed By: #### M G3, BMP3M, LFT3, PCAL, PHOS3 ####[address] [facility] Urea nitrogen [Mass/Vol] 6 mg/dL Low 9-20 [facility] Comment on above: Performed By: #### M G3, BMP3M, LFT3, PCAL, PHOS3 ####[facility] [address] [place], [place] Creatinine [Mass/Vol] 0.57 mg/dL Normal 0.52-1.25 [facility] Comment on above: Performed By: #### M G3, BMP3M, LFT3, PCAL, PHOS3 ####[facility] [id number] [place], [place] eGFR OTHER > 90.0 Normal >60 [facility] Comment on above: Result Comment: KDIG O guidelines provide the following GFR categories:Stage GFR(ml/min/1.73 m2) TermsG1 >=90 Normal or highG2 60-89 Mildly decreased*G3a 45-59 Mildly to moderately [id number] 30-44 Moderately to severely decreasedG4 15-29 Severely decreasedG5 <15 Kidney failure*Relative to young adult level.In the absence of evidence of kidney damage, neither GFRcategory G1 nor G2 fulfill the criteria for CKD.The CKD-EPI equation is validated in individuals 18 yearsof age and older. Currently the best equation forestimating glomerular filtration rate (GFR) from serumcreatinine in children is the Bedside Boyer equation.It is less accurate in patients with extremes of musclemass, restriction of dietary protein, ingestion of creatine,extra-renal metabolism of creatinine, or treatment withmedications that affect renal tubular creatinine secretion. Performed By: #### M G3, BMP3M, LFT3, PCAL, PHOS3 ####[employer] [id number] [place] GFR/1.73 sq M.predicted among blacks MDRD (S/P/Bld) [Vol rate/Area] mL/min/{1.73_m2} Normal >60 [facility] Comment on above: Performed By: #### M G3, BMP3M, LFT3, PCAL, PHOS3 ####[employer] [address] [place], [place] Potassium [Moles/Vol] 3.7 mmol/L Normal 3.5-5.1 [facility] Comment on above: Performed By: #### M G3, BMP3M, LFT3, PCAL, PHOS3 ####[address] [place] Sodium [Moles/Vol] 134 mmol/L Low 135-145 [facility] Comment on above: Performed By: #### M G3, BMP3M, LFT3, PCAL, PHOS3 ####[address] [place] Chloride [Moles/Vol] 106 mmol/L Normal 98-107 [facility] Comment on above: Performed By: #### M G3, BMP3M, LFT3, PCAL, PHOS3 ####[address] [place], [place] CULTURE URINEon 10-05-2021 CULTURE URINE CULTURE URINE --> St atus: F Normal urogenital kristin present. Normal [facility] Comment on above: Performed By: #### C /UR, CUA2 ####[address] [place], [place] Hemogram w/ Autodiffon 10-05 Abs Baso Cnt 0.1 10*3/uL Normal 0.0-0.2 [facility] Comment on above: Performed By: #### H EMDF ####[address] [place], [place] Abs Neutrophile Cnt 3.6 10*3/uL Normal 1.8-7.0 [facility] Comment on above: Performed By: #### H EMDF ####[address] [place], [place] Basophils/100 WBC (Bld) 0.8 % Normal 0.0-2.0 [facility] Comment on above: Performed By: #### H EMDF ####[address] [place], [place] Eosinophils (Bld) [#/Vol] 0.3 10*3/uL Normal 0.0-0.5 [facility] Comment on above: Performed By: #### H EMDF ####[address] [place], [place] Eosinophils/100 WBC (Bld) 3.9 % Normal 1.0-6.0 [facility] Comment on above: Performed By: #### H EMDF ####[address] Erythrocyte distribution width (RBC) [Ratio] 16.2 % High 11.5-14.5 [facility] Comment on above: Performed By: #### H EMDF ####[address] Granulocytes/100 WBC (Bld) 55.1 % Normal 40.0-80.0 [facility] Comment on above: Performed By: #### H EMDF ####[address] Hematocrit (Bld) [Volume fraction] 29.7 % Low 35.0-47.0 [facility] Comment on above: Performed By: #### H EMDF ####[address] Hemoglobin (Bld) [Mass/Vol] 9.4 g/dL Low 11.7-16.0 [facility] Comment on above: Performed By: #### H EMDF ####[address] Lymphocytes (Bld) [#/Vol] 2.2 10*3/uL Normal 1.0-4.3 [facility] Comment on above: Performed By: #### H EMDF ####[address] Lymphocytes/100 WBC (Bld) 34.0 % Normal 20.0-40.0 [facility] Comment on above: Performed By: #### H EMDF ####[address] MCH (RBC) [Entitic mass] 25.1 pg Low 26.0-34.0 [facility] Comment on above: Performed By: #### H EMDF ####[address] MCHC 31.8 % Low 32.0-36.0 [facility] Comment on above: Performed By: #### H EMDF ####[address] [place], [place] MCV (RBC) [Entitic vol] 78.8 fL Low 79.0-98.0 [facility] Comment on above: Performed By: #### H EMDF ####[address] Monocytes (Bld) [#/Vol] 0.4 10*3/uL Normal 0.0-0.8 [facility] Comment on above: Performed By: #### H EMDF ####[address] Monocytes/100 WBC (Bld) 6.2 % Normal 2.0-10.0 [facility] Comment on above: Performed By: #### H EMDF ####[address] Platelet mean volume (Bld) [Entitic vol] 7.4 fL Normal 7.4-10.4 [facility] Comment on above: Performed By: #### H EMDF ####[address] Platelets (Bld) [#/Vol] 221 10*3/uL Normal 140-440 [facility] Comment on above: Performed By: #### H EMDF ####[address] RBC (Bld) [#/Vol] 3.77 10*6/uL Low 3.80-5.20 [facility] Comment on above: Performed By: #### H EMDF ####[address] [place], [place] WBC (Bld) [#/Vol] 6.6 10*3/uL Normal 3.6-10.7 [facility] Comment on above: Performed By: #### H EMDF ####[address] Hepatic Functionon ALP [Catalytic activity/Vol] 43 U/L Normal 38-126 [facility] Comment on above: Performed By: #### M G3, BMP3M, LFT3, PCAL, PHOS3 ####[address] [place], [place] ALT [Catalytic activity/Vol] 15 U/L Normal 0-34 [facility] Comment on above: Result Comment: The ALT test is performed by an updated assay method.Please note that the reference intervals have beenchanged and are now sex specific. Performed By: #### M G3, BMP3M, LFT3, PCAL, PHOS3 ####[address] [place], [place] AST [Catalytic activity/Vol] 19 U/L Normal 15-46 [facility] Comment on above: Performed By: #### M G3, BMP3M, LFT3, PCAL, PHOS3 ####[address] Bilirubin [Mass/Vol] 0.4 mg/dL Normal 0.2-1.3 [facility] Comment on above: Performed By: #### M G3, BMP3M, LFT3, PCAL, PHOS3 ####[address] [place] Protein [Mass/Vol] 6.3 g/dL Normal 6.3-8.2 [facility] Comment on above: Performed By: #### M G3, BMP3M, LFT3, PCAL, PHOS3 ####[address] [place], [place] Bilirubin.indirect [Mass/Vol] 0.0 mg/dL Normal 0.0-0.3 [facility] Comment on above: Performed By: #### M G3, BMP3M, LFT3, PCAL, PHOS3 ####[address] [place], [place] Albumin [Mass/Vol] 3.6 g/dL Normal 3.5-5.0 [facility] Comment on above: Performed By: #### M G3, BMP3M, LFT3, PCAL, PHOS3 ####[address] [place], [place] Magnesiumon 10-05-2021 Magnesium [Mass/Vol] 2.0 mg/dL Normal 1.6-2.3 [facility] Comment on above: Performed By: #### M G3, BMP3M, LFT3, PCAL, PHOS3 ####[address] Phosphoruson 10-05-2021 Phosphate [Mass/Vol] 3.2 mg/dL Normal 2.5-4.5 [facility] Comment on above: Performed By: #### M G3, BMP3M, LFT3, PCAL, PHOS3 ####[address] Procalcitoninon 10-05-2021 Procalcitonin 6.28 ng/mL High 0.00-0.09 [facility] Comment on above: Performed By: #### M G3, BMP3M, LFT3, PCAL, PHOS3 ####[address] Interpretation See Below Normal [facility] Comment on above: Result Comment: PCT <0.50 = Low risk of severe sepsis and/or septic shock.PCT >2.00 = High risk of severe sepsis and/or septic shock. Performed By: #### M G3, BMP3M, LFT3, PCAL, PHOS3 ####[address] Add on test from HISon 10-04 Add on test from HIS Accepted Normal [facility] Comment on above: Result Comment: Spec imen available & acceptable for analysis. Performed By: #### A DDON ####[address] Add on test from HIS Accepted Normal [facility] Comment on above: Result Comment: Spec imen available & acceptable for analysis. Performed By: #### A DDON ####[address] Barbiturates Screenon 2021 Barbiturate Screen Negative Normal [facility] Comment on above: Result Comment: Chrystal iturates have been screened for by Immunoassayat 200 ng/mL threshold. POSITIVE results are not confirmed bya more specific alternative method unless requested. Ifconfirmation is needed, request confirmation under separateorder.NOTE: These results are for medical treatment only. Analysisperformed using non-forensic procedures. Performed By: #### B ARBT ####[address] [place], [place] C-Reactive Proteinon 022 CRP [Mass/Vol] mg/L Normal 0.0-9.9 [facility] Comment on above: Result Comment: . Performed By: #### H EMOG, LIPA4, PCAL, CRP2, MG3, LACT3, FERR3, CMP3, QWAL2 ####[address] [place], [place] CT Abdomen/Pelvis w/ Contras ton 10-04-2021 CT Abdomen/Pelvis w/ Contrast Normal [facility] Chlamydia and GC PCR Panelon 10-04-2021 Chlamydia and GC PCR Panel Normal [facility] Comment on above: Performed By: #### T VPCR, CTNGP ####[address] Comp Metabolic Panelon 10-04 ALT [Catalytic activity/Vol] 23 U/L Normal 0-34 [facility] Comment on above: Result Comment: The ALT test is performed by an updated assay method.Please note that the reference intervals have beenchanged and are now sex specific. Performed By: #### H EMOG, LIPA4, PCAL, CRP2, MG3, LACT3, FERR3, CMP3, QWAL2 ####[address] Calcium [Mass/Vol] 9.4 mg/dL Normal 8.4-10.4 [facility] Comment on above: Performed By: #### H EMOG, LIPA4, PCAL, CRP2, MG3, LACT3, FERR3, CMP3, QWAL2 ####[address] [place], [place] Glucose [Mass/Vol] 84 mg/dL Normal 70-100 [facility] Comment on above: Performed By: #### H EMOG, LIPA4, PCAL, CRP2, MG3, LACT3, FERR3, CMP3, QWAL2 ####[address] [place] ALP [Catalytic activity/Vol] 63 U/L Normal 38-126 [facility] Comment on above: Result Comment: Slig htly hemolysed, interpret with caution. Performed By: #### H EMOG, LIPA4, PCAL, CRP2, MG3, LACT3, FERR3, CMP3, QWAL2 ####[address] [place] Anion gap [Moles/Vol] 15 mmol/L High 3-13 [facility] Comment on above: Performed By: #### H EMOG, LIPA4, PCAL, CRP2, MG3, LACT3, FERR3, CMP3, QWAL2 ####[address] [place] AST [Catalytic activity/Vol] 40 U/L Normal 15-46 [facility] Comment on above: Result Comment: Slig htly hemolysed, interpret with caution. Performed By: #### H EMOG, LIPA4, PCAL, CRP2, MG3, LACT3, FERR3, CMP3, QWAL2 ####[address] [place] Bilirubin [Mass/Vol] 0.7 mg/dL Normal 0.2-1.3 [facility] Comment on above: Performed By: #### H EMOG, LIPA4, PCAL, CRP2, MG3, LACT3, FERR3, CMP3, QWAL2 ####[address] [place] CO2 [Moles/Vol] 19 mmol/L Low 22-30 [facility] Comment on above: Performed By: #### H EMOG, LIPA4, PCAL, CRP2, MG3, LACT3, FERR3, CMP3, QWAL2 ####[address] [place], [place] Creatinine [Mass/Vol] 0.66 mg/dL Normal 0.52-1.25 [facility] Comment on above: Performed By: #### H EMOG, LIPA4, PCAL, CRP2, MG3, LACT3, FERR3, CMP3, QWAL2 ####[address] [place], [place] eGFR OTHER > 90.0 Normal >60 [facility] Comment on above: Result Comment: KDIG O guidelines provide the following GFR categories:Stage GFR(ml/min/1.73 m2) TermsG1 >=90 Normal or highG2 60-89 Mildly decreased*G3a 45-59 Mildly to moderately [id number] 30-44 Moderately to severely decreasedG4 15-29 Severely decreasedG5 <15 Kidney failure*Relative to young adult level.In the absence of evidence of kidney damage, neither GFRcategory G1 nor G2 fulfill the criteria for CKD.The CKD-EPI equation is validated in individuals 18 yearsof age and older. Currently the best equation forestimating glomerular filtration rate (GFR) from serumcreatinine in children is the Bedside Boyer equation.It is less accurate in patients with extremes of musclemass, restriction of dietary protein, ingestion of creatine,extra-renal metabolism of creatinine, or treatment withmedications that affect renal tubular creatinine secretion. Performed By: #### H EMOG, LIPA4, PCAL, CRP2, MG3, LACT3, FERR3, CMP3, QWAL2 ####[address] [place], [place] GFR/1.73 sq M.predicted among blacks MDRD (S/P/Bld) [Vol rate/Area] mL/min/{1.73_m2} Normal >60 [facility] Comment on above: Performed By: #### H EMOG, LIPA4, PCAL, CRP2, MG3, LACT3, FERR3, CMP3, QWAL2 ####[address] [place], [place] Protein [Mass/Vol] 8.4 g/dL High 6.3-8.2 [facility] Comment on above: Performed By: #### H EMOG, LIPA4, PCAL, CRP2, MG3, LACT3, FERR3, CMP3, QWAL2 ####[address] [place], [place] Urea nitrogen [Mass/Vol] 13 mg/dL Normal 9-20 [facility] Comment on above: Performed By: #### H EMOG, LIPA4, PCAL, CRP2, MG3, LACT3, FERR3, CMP3, QWAL2 ####[address] [place], [place] Chloride [Moles/Vol] 101 mmol/L Normal 98-107 [facility] Comment on above: Performed By: #### H EMOG, LIPA4, PCAL, CRP2, MG3, LACT3, FERR3, CMP3, QWAL2 ####[address] [place], [place] Potassium [Moles/Vol] 4.3 mmol/L Normal 3.5-5.1 [facility] Comment on above: Result Comment: Slig htly hemolysed, interpret with caution. Performed By: #### H EMOG, LIPA4, PCAL, CRP2, MG3, LACT3, FERR3, CMP3, QWAL2 ####[address] [place], [place] Sodium [Moles/Vol] 135 mmol/L Normal 135-145 [facility] Comment on above: Performed By: #### H EMOG, LIPA4, PCAL, CRP2, MG3, LACT3, FERR3, CMP3, QWAL2 ####[address] [place] Albumin [Mass/Vol] 4.9 g/dL Normal 3.5-5.0 [facility] Comment on above: Performed By: #### H EMOG, LIPA4, PCAL, CRP2, MG3, LACT3, FERR3, CMP3, QWAL2 ####[address] [place] Complete Urinalysison 2021 Appearance (U) Turbid Abnormal Clear [facility] Comment on above: Result Comment: . Performed By: #### C /UR, CUA2 ####[facility] [id number] [place], [place] Bacteria LM.HPF (Urine sed) [#/Area] Negative Normal Negative [facility] Comment on above: Result Comment: . Performed By: #### C /UR, CUA2 ####[facility] [id number] [place], [place] Bilirubin,Urine Negative Normal Negative [facility] Comment on above: Result Comment: . Performed By: #### C /UR, CUA2 ####[facility] [employer] [address] [place], [place] Cast, Hyaline Negative Normal Negative [facility] Comment on above: Result Comment: . Performed By: #### C /UR, CUA2 ####[facility] [address] [address] Color (U) Yellow Normal Lt. Yellow [facility] Comment on above: Result Comment: . Performed By: #### C /UR, CUA2 ####[facility] [employer] [id number] [place], [place] Glucose Ql (U) Normal Normal Normal (<70) [facility] Comment on above: Result Comment: . Performed By: #### C /UR, CUA2 ####[facility] [employer] [address] [place] Ketone,Urine > 150 Abnormal Negative [facility] Comment on above: Result Comment: . Performed By: #### C /UR, CUA2 ####[facility] [employer] [id number] [place] [address] Leukocytes,Urine 250 Nesha/uL Abnormal Negative [facility] Comment on above: Result Comment: . Performed By: #### C /UR, CUA2 ####[facility] [employer] [address] Mucous Threads Few Normal Negative [facility] Comment on above: Result Comment: . Performed By: #### C /UR, CUA2 ####[facility] [employer] [id number] [place] Nitrites,Urine Negative Normal Negative [facility] Comment on above: Result Comment: . Performed By: #### C /UR, CUA2 ####[address] [place] Occult Blood,Urine > 1.0 Abnormal Negative [facility] Comment on above: Result Comment: . Performed By: #### C /UR, CUA2 ####[address] [place] pH,Urine 5.5 Normal 5.0-8.0 [facility] Comment on above: Result Comment: . Performed By: #### C /UR, CUA2 ####[address] [place] Protein (U) [Mass/Vol] 200 mg/dL Abnormal Negative [facility] Comment on above: Result Comment: . Performed By: #### C /UR, CUA2 ####[facility] [id number] [place] RBC LM.HPF (Urine sed) [#/Area] /[HPF] Abnormal 0-2 [facility] Comment on above: Result Comment: . Performed By: #### C /UR, CUA2 ####[address] [place] Specific [place],Urine > 1.030 Abnormal 1.005 - 1.030 [facility] Comment on above: Result Comment: . Performed By: #### C /UR, CUA2 ####[facility] [id number] [place] Squamous Epithelial 0 - 2 Normal 3-5 [facility] Comment on above: Result Comment: . Performed By: #### C /UR, CUA2 ####[facility] [address] [address] [employer] [place] Urobilinogen,Urine Normal Normal Normal (0-1) [facility] Comment on above: Result Comment: . Performed By: #### C /UR, CUA2 ####[id number] [place], [place] WBC, Urine 26 - 50 Abnormal 0-5 [facility] Comment on above: Result Comment: . Performed By: #### C /UR, CUA2 ####[id number] [place], [place] D-Dimer, Innovanceon 2 022 D-Dimer, Innovance 0.27 mg/L Normal <0.19-0.50 [facility] Comment on above: Result Comment: Inno seth D-Dimer values of <0.50 mg/L FEU can be used incombination with a pre-test probability model (e.g. Well's)to exclude pulmonary embolism (PE) disease, as well as demian in the diagnosis of deep vein thrombosis (DVT). Performed By: #### D DI2 ####[address] Ferritinon 10-04-2021 Ferritin [Mass/Vol] 32 ng/mL Normal 6-137 [facility] Comment on above: Performed By: #### H EMOG, LIPA4, PCAL, CRP2, MG3, LACT3, FERR3, CMP3, QWAL2 ####[address] [place], [place] Hemogramon 10-04-2021 Erythrocyte distribution width (RBC) [Ratio] 16.1 % High 11.5-14.5 [facility] Comment on above: Performed By: #### H EMOG, LIPA4, PCAL, CRP2, MG3, LACT3, FERR3, CMP3, QWAL2 ####[address] [place], [place] Hematocrit (Bld) [Volume fraction] 37.8 % Normal 35.0-47.0 [facility] Comment on above: Performed By: #### H EMOG, LIPA4, PCAL, CRP2, MG3, LACT3, FERR3, CMP3, QWAL2 ####[address] [place], [place] Hemoglobin (Bld) [Mass/Vol] 11.8 g/dL Normal 11.7-16.0 [facility] Comment on above: Performed By: #### H EMOG, LIPA4, PCAL, CRP2, MG3, LACT3, FERR3, CMP3, QWAL2 ####[address] [place], [place] MCH (RBC) [Entitic mass] 24.1 pg Low 26.0-34.0 [facility] Comment on above: Performed By: #### H EMOG, LIPA4, PCAL, CRP2, MG3, LACT3, FERR3, CMP3, QWAL2 ####[address] MCHC 31.2 % Low 32.0-36.0 [facility] Comment on above: Performed By: #### H EMOG, LIPA4, PCAL, CRP2, MG3, LACT3, FERR3, CMP3, QWAL2 ####[address] MCV (RBC) [Entitic vol] 77.2 fL Low 79.0-98.0 [facility] Comment on above: Performed By: #### H EMOG, LIPA4, PCAL, CRP2, MG3, LACT3, FERR3, CMP3, QWAL2 ####[address] Platelet mean volume (Bld) [Entitic vol] 7.5 fL Normal 7.4-10.4 [facility] Comment on above: Performed By: #### H EMOG, LIPA4, PCAL, CRP2, MG3, LACT3, FERR3, CMP3, QWAL2 ####[address] Platelets (Bld) [#/Vol] 318 10*3/uL Normal 140-440 [facility] Comment on above: Performed By: #### H EMOG, LIPA4, PCAL, CRP2, MG3, LACT3, FERR3, CMP3, QWAL2 ####[address] [place], [place] RBC (Bld) [#/Vol] 4.90 10*6/uL Normal 3.80-5.20 [facility] Comment on above: Performed By: #### H EMOG, LIPA4, PCAL, CRP2, MG3, LACT3, FERR3, CMP3, QWAL2 ####[address] [place], [place] WBC (Bld) [#/Vol] 7.1 10*3/uL Normal 3.6-10.7 [facility] Comment on above: Performed By: #### H EMOG, LIPA4, PCAL, CRP2, MG3, LACT3, FERR3, CMP3, QWAL2 ####[address] Iron AND TIBCon 10-04-2021 Saturation 8 % Low 15-50 [facility] Comment on above: Performed By: #### F EIBC ####[address] Total Iron Binding Cap. 358 ug/dL Normal 261-497 [facility] Comment on above: Performed By: #### F EIBC ####[address] Iron, Total 28 ug/dL Low 37-170 [facility] Comment on above: Performed By: #### F EIBC ####[address] Lactic Acidon 10-04-2021 Lactate [Moles/Vol] 1.1 mmol/L Normal 0.7-2.0 [facility] Comment on above: Performed By: #### H EMOG, LIPA4, PCAL, CRP2, MG3, LACT3, FERR3, CMP3, QWAL2 ####[address] [place], [place] Lipaseon 10-04-2021 Lipase [Catalytic activity/Vol] 41 U/L Normal 23-300 [facility] Comment on above: Performed By: #### H EMOG, LIPA4, PCAL, CRP2, MG3, LACT3, FERR3, CMP3, QWAL2 ####[address] [place], [place] Magnesiumon 10-04-2021 Magnesium [Mass/Vol] 1.9 mg/dL Normal 1.6-2.3 [facility] Comment on above: Result Comment: Slig htly hemolysed, interpret with caution. Performed By: #### H EMOG, LIPA4, PCAL, CRP2, MG3, LACT3, FERR3, CMP3, QWAL2 ####[address] Procalcitoninon 10-04-2021 Procalcitonin 16.29 ng/mL High 0.00-0.09 [facility] Comment on above: Performed By: #### H EMOG, LIPA4, PCAL, CRP2, MG3, LACT3, FERR3, CMP3, QWAL2 ####[address] Interpretation See Below Normal [facility] Comment on above: Result Comment: PCT <0.50 = Low risk of severe sepsis and/or septic shock.PCT >2.00 = High risk of severe sepsis and/or septic shock. Performed By: #### H EMOG, LIPA4, PCAL, CRP2, MG3, LACT3, FERR3, CMP3, QWAL2 ####[address] Trichomonas vaginalis PCRon 10-04-2021 Trichomonas vaginalis PCR Normal [facility] Comment on above: Performed By: #### T VPCR, CTNGP ####[address] hCG Qual Pregon 10-04-2021 hCG Qual Preg Negative Normal [facility] Comment on above: Result Comment: Refe rence Range: NEGATIVEEffective 11/18/2019, the reference interval for thequalitative test has been updated. This test detectshCG at concentrations of 10 mIU/L or greater in serum. Performed By: #### H EMOG, LIPA4, PCAL, CRP2, MG3, LACT3, FERR3, CMP3, QWAL2 ####[facility] [id number] [place], [place] CR Abdomen APon 10-03-2021 CR Abdomen AP Normal [facility] Comp Metabolic Panelon 10-03 ALP [Catalytic activity/Vol] 53 U/L Normal 38-126 [facility] Comment on above: Result Comment: Slig htly hemolysed, interpret with caution. Performed By: #### H GEORGI VALENTINO3 ####[facility] [id number] [place], [place] ALT [Catalytic activity/Vol] 23 U/L Normal 0-34 [facility] Comment on above: Result Comment: The ALT test is performed by an updated assay method.Please note that the reference intervals have beenchanged and are now sex specific. Performed By: #### H CHELSY CMP3 ####[facility] [address] [address] [place], [place] AST [Catalytic activity/Vol] 36 U/L Normal 15-46 [facility] Comment on above: Result Comment: Slig htly hemolysed, interpret with caution. Performed By: #### H CHELSY CMP3 ####[facility] [id number] [place], [place] Calcium [Mass/Vol] 9.3 mg/dL Normal 8.4-10.4 [facility] Comment on above: Performed By: #### H CHELSY CMP3 ####[facility] [id number] [place], [place] Glucose [Mass/Vol] 113 mg/dL High 70-100 [facility] Comment on above: Performed By: #### H CHELSY CMP3 ####[facility] [employer] [address] [place], [place] Protein [Mass/Vol] 7.9 g/dL Normal 6.3-8.2 [facility] Comment on above: Performed By: #### H CHELSY CMP3 ####[facility] [address], [place] Urea nitrogen [Mass/Vol] 14 mg/dL Normal 9-20 [facility] Comment on above: Performed By: #### H GEORGI VALENTINO3 ####[address] [place], [place] Anion gap [Moles/Vol] 15 mmol/L High 3-13 [facility] Comment on above: Performed By: #### H GEORGI VALENTINO3 ####[address] [place], [place] Bilirubin [Mass/Vol] 0.8 mg/dL Normal 0.2-1.3 [facility] Comment on above: Performed By: #### H GEORGI VALENTINO3 ####[address] CO2 [Moles/Vol] 21 mmol/L Low 22-30 [facility] Comment on above: Performed By: #### H GEORGI VALENTINO3 ####[address] Creatinine [Mass/Vol] 0.68 mg/dL Normal 0.52-1.25 [facility] Comment on above: Performed By: #### H GEORGI VALENTINO3 ####[address] eGFR OTHER > 90.0 Normal >60 [facility] Comment on above: Result Comment: KDIG O guidelines provide the following GFR categories:Stage GFR(ml/min/1.73 m2) TermsG1 >=90 Normal or highG2 60-89 Mildly decreased*G3a 45-59 Mildly to moderately [id number] 30-44 Moderately to severely decreasedG4 15-29 Severely decreasedG5 <15 Kidney failure*Relative to young adult level.In the absence of evidence of kidney damage, neither GFRcategory G1 nor G2 fulfill the criteria for CKD.The CKD-EPI equation is validated in individuals 18 yearsof age and older. Currently the best equation forestimating glomerular filtration rate (GFR) from serumcreatinine in children is the Bedside Boyer equation.It is less accurate in patients with extremes of musclemass, restriction of dietary protein, ingestion of creatine,extra-renal metabolism of creatinine, or treatment withmedications that affect renal tubular creatinine secretion. Performed By: #### H GEORGI VALENTINO3 ####[facility] [id number] [place], [place] GFR/1.73 sq M.predicted among blacks MDRD (S/P/Bld) [Vol rate/Area] mL/min/{1.73_m2} Normal >60 [facility] Comment on above: Performed By: #### H GEORGI VALENTINO3 ####[address] Albumin [Mass/Vol] 4.5 g/dL Normal 3.5-5.0 [facility] Comment on above: Performed By: #### H CHELSY CMP3 ####[address] Chloride [Moles/Vol] 103 mmol/L Normal 98-107 [facility] Comment on above: Performed By: #### H GEORGI VALENTINO3 ####[address] Potassium [Moles/Vol] 4.5 mmol/L Normal 3.5-5.1 [facility] Comment on above: Result Comment: Slig htly hemolysed, interpret with caution. Performed By: #### H GEORGI VALENTINO3 ####[address] [place], [place] Sodium [Moles/Vol] 139 mmol/L Normal 135-145 [facility] Comment on above: Performed By: #### H CHELSY CMP3 ####[address] [place], [place] Complete Urinalysison 2021 Appearance (U) Turbid Abnormal Clear [facility] Comment on above: Result Comment: . Performed By: #### C UA2 ####[address] Bacteria Moderate Abnormal Negative [facility] Comment on above: Result Comment: . Performed By: #### C UA2 ####[address] [place], [place] Bilirubin,Urine Negative Normal Negative [facility] Comment on above: Result Comment: . Performed By: #### C UA2 ####[address] [place], [place] Color (U) Yellow Normal Lt. Yellow [facility] Comment on above: Result Comment: . Performed By: #### C UA2 ####[address] [place], [place] Glucose Ql (U) Normal Normal Normal (<70) [facility] Comment on above: Result Comment: . Performed By: #### C UA2 ####[address] Ketone,Urine 100 mg/dL Abnormal Negative [facility] Comment on above: Result Comment: . Performed By: #### C UA2 ####[address] Leukocytes,Urine 250 Nesha/uL Abnormal Negative [facility] Comment on above: Result Comment: . Performed By: #### C UA2 ####[address] Mucous Threads Few Normal Negative [facility] Comment on above: Result Comment: . Performed By: #### C UA2 ####[address] Nitrites,Urine Negative Normal Negative [facility] Comment on above: Result Comment: . Performed By: #### C UA2 ####[address] [place] Occult Blood,Urine > 1.0 Abnormal Negative [facility] Comment on above: Result Comment: . Performed By: #### C UA2 ####[address] pH,Urine 5.5 Normal 5.0-8.0 [facility] Comment on above: Result Comment: . Performed By: #### C UA2 ####[address] Protein (U) [Mass/Vol] 70 mg/dL Abnormal Negative [facility] Comment on above: Result Comment: . Performed By: #### C UA2 ####[address] RBC, Urine 51 - 100 Abnormal 0-2 [facility] Comment on above: Result Comment: . Performed By: #### C UA2 ####[address] Specific [place],Urine > 1.030 Abnormal 1.005 - 1.030 [facility] Comment on above: Result Comment: . Performed By: #### C UA2 ####[address] Squamous Epithelial 6 - 10 Abnormal 3-5 [facility] Comment on above: Result Comment: . Performed By: #### C UA2 ####[address] Urobilinogen,Urine Normal Normal Normal (0-1) [facility] Comment on above: Result Comment: . Performed By: #### C UA2 ####[address] WBC, Urine 11 - 25 Abnormal 0-5 [facility] Comment on above: Result Comment: . Performed By: #### C UA2 ####[address] ED Provider Noteon ED Provider Note Normal [facility] ED Provider Note Normal [facility] Hemogram w/ Autodiffon 10-03 Abs Baso Cnt 0.0 10*3/uL Normal 0.0-0.2 [facility] Comment on above: Performed By: #### H EMDF CMP3 ####[address] [place], [place] Abs Neutrophile Cnt 4.7 10*3/uL Normal 1.8-7.0 [facility] Comment on above: Performed By: #### H EMDF CMP3 ####[address] [place] [address] Basophils/100 WBC (Bld) 0.5 % Normal 0.0-2.0 [facility] Comment on above: Performed By: #### H CHELSY CMP3 ####[address] [address] Eosinophils (Bld) [#/Vol] 0.0 10*3/uL Normal 0.0-0.5 [facility] Comment on above: Performed By: #### H CHELSY CMP3 ####[address] [address] Eosinophils/100 WBC (Bld) 0.7 % Low 1.0-6.0 [facility] Comment on above: Performed By: #### H CHELSY CMP3 ####[address] Erythrocyte distribution width (RBC) [Ratio] 15.4 % High 11.5-14.5 [facility] Comment on above: Performed By: #### H CHELSY CMP3 ####[address] Granulocytes/100 WBC (Bld) 82.7 % High 40.0-80.0 [facility] Comment on above: Performed By: #### H CHELSY CMP3 ####[address] [address] Hematocrit (Bld) [Volume fraction] 37.4 % Normal 35.0-47.0 [facility] Comment on above: Performed By: #### H CHELSY CMP3 ####[address] [address] Hemoglobin (Bld) [Mass/Vol] 11.7 g/dL Normal 11.7-16.0 [facility] Comment on above: Performed By: #### H EMDLindsey CMP3 ####[address] [address] Lymphocytes (Bld) [#/Vol] 0.7 10*3/uL Low 1.0-4.3 [facility] Comment on above: Performed By: #### H EMDLindsey CMP3 ####[address] [place], [place] Lymphocytes/100 WBC (Bld) 11.9 % Low 20.0-40.0 [facility] Comment on above: Performed By: #### H EMDLindsey CMP3 ####[address] [place], [place] MCH (RBC) [Entitic mass] 24.5 pg Low 26.0-34.0 [facility] Comment on above: Performed By: #### H EMDLindsey CMP3 ####[address] [place], [place] MCHC 31.2 % Low 32.0-36.0 [facility] Comment on above: Performed By: #### H CHELSY CMP3 ####[address] [place], [place] MCV (RBC) [Entitic vol] 78.4 fL Low 79.0-98.0 [facility] Comment on above: Performed By: #### H CHELSY CMP3 ####[address] [place], [place] Monocytes (Bld) [#/Vol] 0.2 10*3/uL Normal 0.0-0.8 [facility] Comment on above: Performed By: #### H EMDF CMP3 ####[address] Monocytes/100 WBC (Bld) 4.2 % Normal 2.0-10.0 [facility] Comment on above: Performed By: #### H EMDLindsey CMP3 ####[address] Platelet mean volume (Bld) [Entitic vol] 7.8 fL Normal 7.4-10.4 [facility] Comment on above: Performed By: #### H EMDF CMP3 ####[address] [address] Platelets (Bld) [#/Vol] 265 10*3/uL Normal 140-440 [facility] Comment on above: Performed By: #### H GEORGI VALNETINO3 ####[address] [place] [address] RBC (Bld) [#/Vol] 4.77 10*6/uL Normal 3.80-5.20 [facility] Comment on above: Performed By: #### H GEORGI VALENTINO3 ####[facility] [place] [address] WBC (Bld) [#/Vol] 5.7 10*3/uL Normal 3.6-10.7 [facility] Comment on above: Performed By: #### H GEORGI VALENTINO3 ####[address] [place] [address] CBC Auto Differentialon 09-08 Absolute Baso # 0.0 10*3/uL 0.0 - 0.2 10*3/uL [facility] Absolute Neut # 2.9 10*3/uL 1.8 - 7.0 10*3/uL [facility] Basophils/100 WBC (Bld) 0.6 % 0.0 - 2.0 % [facility] Eosinophils (Bld) [#/Vol] 0.1 10*3/uL 0.0 - 0.5 10*3/uL [facility] Eosinophils/100 WBC (Bld) 2.8 % 1.0 - 6.0 % [facility] Granulocytes/100 WBC (Bld) 57.0 % 40.0 - 80.0 % [facility] Hematocrit (Bld) [Volume fraction] 33.2 % Low 35.0 - 47.0 % [facility] Hemoglobin.gastrointesti nal spec 1 Ql (Stl) 10.6 g/dL Low 11.7 - 16.0 g/dL [facility] Interpretation and review of laboratory results Abnormal [facility] Lymphocytes (Bld) [#/Vol] 1.6 10*3/uL 1.0 - 4.3 10*3/uL [facility] Lymphocytes/100 WBC (Bld) 32.4 % 20.0 - 40.0 % [facility] MCH (RBC) [Entitic mass] 24.4 pg Low 26. 0 - 34.0 pg [facility] MCHC (RBC) [Mass/Vol] 31.9 % Low 32.0 - 36.0 % [facility] MCV (RBC) [Entitic vol] 76.7 fL Low 79.0 - 98.0 fL [facility] Monocytes (Bld) [#/Vol] 0.4 10*3/uL 0.0 - 0.8 10*3/uL [facility] Monocytes/100 WBC (Bld) 7.2 % 2.0 - 10.0 % [facility] Platelet distribution width (Bld) [Ratio] 15.8 % High 11.5 - 14.5 % [facility] Platelet mean volume (Bld) [Entitic vol] 7.5 fL 7.4 - 10.4 fL [facility] Platelets (Bld) [#/Vol] 265 10*3/uL 140 - 440 10*3/uL [facility] RBC (Bld) [#/Vol] 4.33 10*6/uL 3.80 - 5.20 10*6/uL [facility] WBC (Bld) [#/Vol] 5.0 10*3/uL 3.6 - 10.7 10*3/uL [facility] Test Performed by [facility], [address] [place], [place] [id number] [place] [address] [facility]-2021 CULTURE URINE CULTURE URINE --> St atus: F Normal urogenital kristin present. Normal [facility] Comment on above: Performed By: #### C /UR ####[facility] [place], [place] Comp Metabolic Panelon 10-02 Calcium [Mass/Vol] 9.2 mg/dL Normal 8.4-10.4 [facility] Comment on above: Performed By: #### P HOS3, HEMDF, MG3, CMP3 ####[facility] [id number] [place], [place] ALP [Catalytic activity/Vol] 58 U/L Normal 38-126 [facility] Comment on above: Performed By: #### P HOS3, HEMDF, MG3, CMP3 ####[facility] [id number] [place], [place] ALT [Catalytic activity/Vol] 16 U/L Normal 0-34 [facility] Comment on above: Result Comment: The ALT test is performed by an updated assay method.Please note that the reference intervals have beenchanged and are now sex specific. Performed By: #### P HOS3, HEMDF, MG3, CMP3 ####[address] [place], [place] Anion gap [Moles/Vol] 13 mmol/L Normal 3-13 [facility] Comment on above: Performed By: #### P HOS3, HEMDF, MG3, CMP3 ####[address] AST [Catalytic activity/Vol] 24 U/L Normal 15-46 [facility] Comment on above: Performed By: #### P HOS3, HEMDF, MG3, CMP3 ####[address] CO2 [Moles/Vol] 25 mmol/L Normal 22-30 [facility] Comment on above: Performed By: #### P HOS3, HEMDF, MG3, CMP3 ####[address] Glucose [Mass/Vol] 78 mg/dL Normal 70-100 [facility] Comment on above: Performed By: #### P HOS3, HEMDF, MG3, CMP3 ####[address] Protein [Mass/Vol] 7.4 g/dL Normal 6.3-8.2 [facility] Comment on above: Performed By: #### P HOS3, HEMDF, MG3, CMP3 ####[address] Urea nitrogen [Mass/Vol] 15 mg/dL Normal 9-20 [facility] Comment on above: Performed By: #### P HOS3, HEMDF, MG3, CMP3 ####[address] Bilirubin [Mass/Vol] 0.4 mg/dL Normal 0.2-1.3 [facility] Comment on above: Performed By: #### P HOS3, HEMDF, MG3, CMP3 ####[facility] [id number] [place], [place] Creatinine [Mass/Vol] 0.65 mg/dL Normal 0.52-1.25 [facility] Comment on above: Performed By: #### P HOS3, HEMDF, MG3, CMP3 ####[address] [place], [place] eGFR OTHER > 90.0 Normal >60 [facility] Comment on above: Result Comment: KDIG O guidelines provide the following GFR categories:Stage GFR(ml/min/1.73 m2) TermsG1 >=90 Normal or highG2 60-89 Mildly decreased*G3a 45-59 Mildly to moderately [id number] 30-44 Moderately to severely decreasedG4 15-29 Severely decreasedG5 <15 Kidney failure*Relative to young adult level.In the absence of evidence of kidney damage, neither GFRcategory G1 nor G2 fulfill the criteria for CKD.The CKD-EPI equation is validated in individuals 18 yearsof age and older. Currently the best equation forestimating glomerular filtration rate (GFR) from serumcreatinine in children is the Bedside Boyer equation.It is less accurate in patients with extremes of musclemass, restriction of dietary protein, ingestion of creatine,extra-renal metabolism of creatinine, or treatment withmedications that affect renal tubular creatinine secretion. Performed By: #### P HOS3, HEMDF, MG3, CMP3 ####[facility] [employer] [address] GFR/1.73 sq M.predicted among blacks MDRD (S/P/Bld) [Vol rate/Area] mL/min/{1.73_m2} Normal >60 [facility] Comment on above: Performed By: #### P HOS3, HEMDF, MG3, CMP3 ####[address] [place], [place] Albumin [Mass/Vol] 4.3 g/dL Normal 3.5-5.0 [facility] Comment on above: Performed By: #### P HOS3, HEMDF, MG3, CMP3 ####[facility] [place], [place] Chloride [Moles/Vol] 99 mmol/L Normal 98-107 [facility] Comment on above: Performed By: #### P HOS3, HEMDF, MG3, CMP3 ####[address] [place], [place] Potassium [Moles/Vol] 3.6 mmol/L Normal 3.5-5.1 [facility] Comment on above: Performed By: #### P HOS3, HEMDF, MG3, CMP3 ####[address] [place], [place] Sodium [Moles/Vol] 137 mmol/L Normal 135-145 [facility] Comment on above: Performed By: #### P HOS3, HEMDF, MG3, CMP3 ####[address] [place], [place] Comprehensive Metabolic Pane [facility] 10-02-2021 Albumin [Mass/Vol] 4.3 g/dL 3.5 - 5.0 g/dL [facility] ALP (Bld) [Catalytic activity/Vol] 58 U/L 38 - 126 U/L [facility] ALT [Catalytic activity/Vol] 16 U/L 0 - 34 U/L [facility] Comment on above: The ALT test is perf ormed by an updated assay method. Please note that the reference intervals have been changed and are now sex specific. Anion gap [Moles/Vol] 13 mmol/L 3 - 13 mmol/L [facility] AST [Catalytic activity/Vol] 24 U/L 15 - 46 U/L [facility] Bilirubin [Mass/Vol] 0.4 mg/dL 0.2 - 1 .3 mg/dL [facility] Calcium [Mass/Vol] 9.2 mg/dL 8.4 - 10. 4 mg/dL [facility] Chloride [Moles/Vol] 99 mmol/L 98 - 10 7 mmol/L [facility] CO2 [Moles/Vol] 25 mmol/L 22 - 30 mmol/L [facility] Creatinine [Mass/Vol] 0.65 mg/dL 0.52 - 1.25 mg/dL [facility] EGFR IF NonAfrican Djiboutian >90.0 >60 mL/min [facility] Comment on above: KDIGO guidelines pro vide the following GFR categories: Stage GFR(ml/min/1.73 m2) Terms G1 >=90 Normal or high G2 60-89 Mildly decreased* G3a 45-59 Mildly to moderately decreased G3b 30-44 Moderately to severely decreased G4 15-29 Severely decreased G5 <15 Kidney failure *Relative to young adult level. In the absence of evidence of kidney damage, neither GFR category G1 nor G2 fulfill the criteria for CKD. The CKD-EPI equation is validated in individuals 18 years of age and older. Currently the best equation for estimating glomerular filtration rate (GFR) from serum creatinine in children is the Bedside Boyer equation. It is less accurate in patients with extremes of muscle mass, restriction of dietary protein, ingestion of creatine, extra-renal metabolism of creatinine, or treatment with medications that affect renal tubular creatinine secretion. Free PSA/Total PSA [Mass fraction] 7.4 g/dL 6.3 - 8.2 g/dL [facility] GFR/1.73 sq M.predicted among blacks MDRD (S/P/Bld) [Vol rate/Area] mL/min/{1.73_m2} >60 mL/min [facility] Glucose [Mass/Vol] 78 mg/dL 70 - 100 mg/dL [facility] Potassium [Moles/Vol] 3.6 mmol/L 3.5 - 5.1 mmol/L [facility] Sodium [Moles/Vol] 137 mmol/L 135 - 145 mmol/L [facility] Urea nitrogen (BldV) [Mass/Vol] 15 mg/dL 9 - 20 mg/dL [facility] w/ Autodiffon 10-02 Abs Baso Cnt 0.0 10*3/uL Normal 0.0-0.2 [facility] Comment on above: Performed By: #### P HOS3, HEMDF, MG3, CMP3 ####[facility] [employer] [place] [address] Abs Neutrophile Cnt 2.9 10*3/uL Normal 1.8-7.0 [facility] Comment on above: Performed By: #### P HOS3, HEMDF, MG3, CMP3 ####[facility] [employer] [place] [address] Basophils/100 WBC (Bld) 0.6 % Normal 0.0-2.0 [facility] Comment on above: Performed By: #### P HOS3, HEMDF, MG3, CMP3 ####[address] Eosinophils (Bld) [#/Vol] 0.1 10*3/uL Normal 0.0-0.5 [facility] Comment on above: Performed By: #### P HOS3, HEMDF, MG3, CMP3 ####[address] Eosinophils/100 WBC (Bld) 2.8 % Normal 1.0-6.0 [facility] Comment on above: Performed By: #### P HOS3, HEMDF, MG3, CMP3 ####[address] Erythrocyte distribution width (RBC) [Ratio] 15.8 % High 11.5-14.5 [facility] Comment on above: Performed By: #### P HOS3, HEMDF, MG3, CMP3 ####[address] Granulocytes/100 WBC (Bld) 57.0 % Normal 40.0-80.0 [facility] Comment on above: Performed By: #### P HOS3, HEMDF, MG3, CMP3 ####[address] Hematocrit (Bld) [Volume fraction] 33.2 % Low 35.0-47.0 [facility] Comment on above: Performed By: #### P HOS3, HEMDF, MG3, CMP3 ####[address] Hemoglobin (Bld) [Mass/Vol] 10.6 g/dL Low 11.7-16.0 [facility] [facility] Comment on above: Performed By: #### P HOS3, HEMDF, MG3, CMP3 ####[address] Lymphocytes (Bld) [#/Vol] 1.6 10*3/uL Normal 1.0-4.3 [facility] Comment on above: Performed By: #### P HOS3, HEMDF, MG3, CMP3 ####[address] [place], [place] Lymphocytes/100 WBC (Bld) 32.4 % Normal 20.0-40.0 [facility] Comment on above: Performed By: #### P HOS3, HEMDF, MG3, CMP3 ####[address] MCH (RBC) [Entitic mass] 24.4 pg Low 26.0-34.0 [facility] Comment on above: Performed By: #### P HOS3, HEMDF, MG3, CMP3 ####[address] MCHC 31.9 % Low 32.0-36.0 [facility] Comment on above: Performed By: #### P HOS3, HEMDF, MG3, CMP3 ####[address] MCV (RBC) [Entitic vol] 76.7 fL Low 79.0-98.0 [facility] Comment on above: Performed By: #### P HOS3, HEMDF, MG3, CMP3 ####[address] Monocytes (Bld) [#/Vol] 0.4 10*3/uL Normal 0.0-0.8 [facility] Comment on above: Performed By: #### P HOS3, HEMDF, MG3, CMP3 ####[address] Monocytes/100 WBC (Bld) 7.2 % Normal 2.0-10.0 [facility] Comment on above: Performed By: #### P HOS3, HEMDF, MG3, CMP3 ####[address] Platelet mean volume (Bld) [Entitic vol] 7.5 fL Normal 7.4-10.4 [facility] Comment on above: Performed By: #### P HOS3, HEMDF, MG3, CMP3 ####[address] [place], [place] Platelets (Bld) [#/Vol] 265 10*3/uL Normal 140-440 [facility] Comment on above: Performed By: #### P HOS3, HEMDF, MG3, CMP3 ####[address] [place], [place] RBC (Bld) [#/Vol] 4.33 10*6/uL Normal 3.80-5.20 [facility] Comment on above: Performed By: #### P HOS3, HEMDF, MG3, CMP3 ####[address] WBC (Bld) [#/Vol] 5.0 10*3/uL Normal 3.6-10.7 [facility] Comment on above: Performed By: #### P HOS3, HEMDF, MG3, CMP3 ####[address] [place], [place] Magnesiumon 10-02-2021 Magnesium [Mass/Vol] 2.0 mg/dL Normal 1.6-2.3 [facility] Comment on above: Performed By: #### P HOS3, HEMDF, MG3, CMP3 ####[address] Magnesium [Mass/Vol] 2.0 mg/dL 1.6 - 2 .3 mg/dL [facility] No Panel Informationon 10-02 Test Performed by [facility], [address] [place] [address] [facility] Phosphoruson 10-02-2021 Phosphate [Mass/Vol] 4.3 mg/dL Normal 2.5-4.5 [facility] Comment on above: Performed By: #### P HOS3, HEMDF, MG3, CMP3 ####[facility] [place] [address] Phosphate [Mass/Vol] 4.3 mg/dL 2.5 - 4 .5 mg/dL [facility] Add on test from HISon 10-01 Add on test from HIS Accepted Normal [facility] Comment on above: Result Comment: Spec imen available & acceptable for analysis. Performed By: #### A DDON ####[facility] [place] [address] Absolute lymphocyte counton 09-30-2021 Lymphocytes Auto (Unsp spec) [#/Vol] 1.22 10*3/uL 0.83-4.51 [facility] Work Phone: Basophil percentageon 2021 Basophil percentage 50-100 SEEN /hpf [facility] Work Phone: Basophils/100 WBC (Bld) 0.6 % 0-1 [facility] Work Phone: Bilirubin [Mass/Vol] 0.30 mg/dL 0.20-1.00 [facility] Work Phone: Comment on above: For patients on eltr ombopag therapy, use of Dimension [place] TBIL is not recommended. Chloride [Moles/Vol] 106 mmol/L 98-107 [facility] Work Phone: Eosinophils/100 WBC (Bld) 0.9 % 0-5 [facility] Work Phone: Glucose [Mass/Vol] 117 mg/dL 74-106 [facility] Work Phone: Comment on above: Fasting Glucose resu lt from 100 to 125 mg/dL suggests IMPAIRED HOMEOSTASIS per A.D.A. criteria. Neutrophils (Bld) [#/Vol] 6.7 10*3/uL 2.0-7.7 [facility] Work Phone: Neutrophils/100 WBC (Bld) 78.8 % 47-70 [facility] Work Phone: Potassium [Moles/Vol] 3.6 mmol/L 3.5-5.1 [facility] Work Phone: Protein [Mass/Vol] 8.1 g/dL 6.4-8.2 [facility] Work Phone: Sodium [Moles/Vol] 141 mmol/L 136-145 [facility] Work Phone: WBC (Bld) [#/Vol] 8.5 10*3/uL 4.4-11.0 [facility] Work Phone: Bilirubin Test strip Ql (U)o n 09-30-2021 Bilirubin Ql (U) Negative Negative [facility] Work Phone: Blood erythrocytes count (nu mber/volume)on 09-30-2021 RBC (Bld) [#/Vol] 4.97 10*6/uL 4.2-5.4 [facility] Work Phone: Blood hemoglobin measurement (mass/volume)on 09-30-2021 Hemoglobin (Bld) [Mass/Vol] 12.0 g/dL 12.0-15.0 [facility] Work Phone: Blood lymphocytes/100 leukoc yteson 09-30-2021 Lymphocytes/100 WBC (Bld) 14.4 % 19-41 [facility] Work Phone: Blood monocytes/100 leukocyt eson 09-30-2021 Monocytes/100 WBC (Bld) 5.1 % 0-10 [facility] Work Phone: Blood platelet mean volumeon 09-30-2021 Platelet mean volume (Bld) [Entitic vol] 9.2 fL 6.2-12.0 [facility] Work Phone: CT Abdomen/Pelvis w/ Contras ton 09-30-2021 CT Abdomen/Pelvis w/ Contrast Normal [facility] Comp Metabolic Panelon 09-30 ALT [Catalytic activity/Vol] 16 U/L Normal 0-34 [facility] Comment on above: Result Comment: The ALT test is performed by an updated assay method.Please note that the reference intervals have beenchanged and are now sex specific. Performed By: #### L IPA4, CMP3 ####[id number] [place] [address] Calcium [Mass/Vol] 9.6 mg/dL Normal 8.4-10.4 [facility] Comment on above: Performed By: #### L IPA4, CMP3 ####[address] [place] [address] Glucose [Mass/Vol] 102 mg/dL High 70-100 [facility] Comment on above: Performed By: #### L IPA4, CMP3 ####[address] [place] [address] ALP [Catalytic activity/Vol] 44 U/L Normal 38-126 [facility] Comment on above: Performed By: #### L IPA4, CMP3 ####[address] [place] [address] Anion gap [Moles/Vol] 9 mmol/L Normal 3-13 [facility] Comment on above: Performed By: #### L IPA4, CMP3 ####[address] [place] [address] AST [Catalytic activity/Vol] 26 U/L Normal 15-46 [facility] Comment on above: Performed By: #### L IPA4, CMP3 ####[address] [place] [address] Bilirubin [Mass/Vol] 0.6 mg/dL Normal 0.2-1.3 [facility] Comment on above: Performed By: #### L IPA4, CMP3 ####[address] [place] [address] CO2 [Moles/Vol] 25 mmol/L Normal 22-30 [facility] Comment on above: Performed By: #### L IPA4, CMP3 ####[address] [place] [address] Creatinine [Mass/Vol] 0.54 mg/dL Normal 0.52-1.25 [facility] Comment on above: Performed By: #### L IPA4, CMP3 ####[address] [place], [place] eGFR OTHER > 90.0 Normal >60 [facility] Comment on above: Result Comment: KDIG O guidelines provide the following GFR categories:Stage GFR(ml/min/1.73 m2) TermsG1 >=90 Normal or highG2 60-89 Mildly decreased*G3a 45-59 Mildly to moderately [id number] 30-44 Moderately to severely decreasedG4 15-29 Severely decreasedG5 <15 Kidney failure*Relative to young adult level.In the absence of evidence of kidney damage, neither GFRcategory G1 nor G2 fulfill the criteria for CKD.The CKD-EPI equation is validated in individuals 18 yearsof age and older. Currently the best equation forestimating glomerular filtration rate (GFR) from serumcreatinine in children is the Bedside Boyer equation.It is less accurate in patients with extremes of musclemass, restriction of dietary protein, ingestion of creatine,extra-renal metabolism of creatinine, or treatment withmedications that affect renal tubular creatinine secretion. Performed By: #### L ANDI CMP3 ####[facility] [id number] [place], [place] GFR/1.73 sq M.predicted among blacks MDRD (S/P/Bld) [Vol rate/Area] mL/min/{1.73_m2} Normal >60 [facility] Comment on above: Performed By: #### L ANDI CMP3 ####[facility] [id number] [place], [place] Protein [Mass/Vol] 7.2 g/dL Normal 6.3-8.2 [facility] Comment on above: Performed By: #### L IPALuann CMP3 ####[facility] [id number] [place], [place] Urea nitrogen [Mass/Vol] 12 mg/dL Normal 9-20 [facility] Comment on above: Performed By: #### L IPA4 CMP3 ####[address] [place], [place] Potassium [Moles/Vol] 3.9 mmol/L Normal 3.5-5.1 [facility] Comment on above: Performed By: #### L IPA4, CMP3 ####[address] [place], [place] Sodium [Moles/Vol] 137 mmol/L Normal 135-145 [facility] Comment on above: Performed By: #### L IPA4, CMP3 ####[address] [place], [place] Albumin [Mass/Vol] 4.2 g/dL Normal 3.5-5.0 [facility] Comment on above: Performed By: #### L IPALuann, CMP3 ####[address] [place], [place] Chloride [Moles/Vol] 102 mmol/L Normal 98-107 [facility] Comment on above: Performed By: #### L IPA4, CMP3 ####[address] Complete Urinalysison 2021 Appearance (U) Clear Normal Clear [facility] Comment on above: Result Comment: . Performed By: #### C UA2 ####[address] [place], [place] Bacteria Few Abnormal Negative [facility] Comment on above: Result Comment: . Performed By: #### C UA2 ####[address] Bilirubin,Urine Negative Normal Negative [facility] Comment on above: Result Comment: . Performed By: #### C UA2 ####[address] [place], [place] Color (U) Light-Yellow Normal Lt. Yellow [facility] Comment on above: Result Comment: . Performed By: #### C UA2 ####[address] [place], [place] Glucose Ql (U) Normal Normal Normal (<70) [facility] Comment on above: Result Comment: . Performed By: #### C UA2 ####[address] Ketone,Urine 40 mg/dL Abnormal Negative [facility] Comment on above: Result Comment: . Performed By: #### C UA2 ####[id number] [place], [place] Leukocytes,Urine 500 Nesha/uL Abnormal Negative [facility] Comment on above: Result Comment: . Performed By: #### C UA2 ####[id number] [place], [place] Mucous Threads Many Abnormal Negative [facility] Comment on above: Result Comment: . Performed By: #### C UA2 ####[address] [place], [place] Nitrites,Urine Negative Normal Negative [facility] Comment on above: Result Comment: . Performed By: #### C UA2 ####[address] [place], [place] Occult Blood,Urine > 1.0 Abnormal Negative [facility] Comment on above: Result Comment: . Performed By: #### C UA2 ####[address] [place], [place] pH,Urine 6.0 Normal 5.0-8.0 [facility] Comment on above: Result Comment: . Performed By: #### C UA2 ####[address] [place] Protein (U) [Mass/Vol] 50 mg/dL Abnormal Negative [facility] Comment on above: Result Comment: . Performed By: #### C UA2 ####[address] [place], [place] RBC, Urine 51 - 100 Abnormal 0-2 [facility] Comment on above: Result Comment: . Performed By: #### C UA2 ####[address] [place], [place] Specific [place],Urine 1.013 Normal 1.005 - 1.030 [facility] Comment on above: Result Comment: . Performed By: #### C UA2 ####[address] Squamous Epithelial 0 - 2 Normal 3-5 [facility] Comment on above: Result Comment: . Performed By: #### C UA2 ####[address] [place], [place] Urobilinogen,Urine Normal Normal Normal (0-1) [facility] Comment on above: Result Comment: . Performed By: #### C UA2 ####[address] WBC, Urine 26 - 50 Abnormal 0-5 [facility] Comment on above: Result Comment: . Performed By: #### C UA2 ####[address] Culture, urineon 09-30-2021 Bacteria identified Cx Nom (U) Positive [facility] Work Phone: Determination of erythrocyte mean corpuscular volume (MCV)on 09-30-2021 MCV (RBC) [Entitic vol] 79.5 fL 81-99 [facility] Work Phone: ED Provider Noteon 2 ED Provider Note Normal [facility] Hematocrit Auto (Bld) [Volum e fraction]on 09-30-2021 Hematocrit (Bld) [Volume fraction] 39.5 % 37-47 [facility] Work Phone: Hemogram w/ Autodiffon 09-30 Abs Baso Cnt 0.0 10*3/uL Normal 0.0-0.2 [facility] Comment on above: Performed By: #### H EMDF ####[address] [place], [place] Abs Neutrophile Cnt 4.8 10*3/uL Normal 1.8-7.0 [facility] Comment on above: Performed By: #### H EMDF ####[address] [place], [place] Basophils/100 WBC (Bld) 0.2 % Normal 0.0-2.0 [facility] Comment on above: Performed By: #### H EMDF ####[address] Eosinophils (Bld) [#/Vol] 0.0 10*3/uL Normal 0.0-0.5 [facility] Comment on above: Performed By: #### H EMDF ####[address] [place], [place] Eosinophils/100 WBC (Bld) 0.4 % Low 1.0-6.0 [facility] Comment on above: Performed By: #### H EMDF ####[address] Erythrocyte distribution width (RBC) [Ratio] 16.2 % High 11.5-14.5 [facility] Comment on above: Performed By: #### H EMDF ####[address] Granulocytes/100 WBC (Bld) 77.8 % Normal 40.0-80.0 [facility] Comment on above: Performed By: #### H EMDF ####[address] Hematocrit (Bld) [Volume fraction] 34.5 % Low 35.0-47.0 [facility] Comment on above: Performed By: #### H EMDF ####[address] Hemoglobin (Bld) [Mass/Vol] 11.3 g/dL Low 11.7-16.0 [facility] Comment on above: Performed By: #### H EMDF ####[address] Lymphocytes (Bld) [#/Vol] 0.9 10*3/uL Low 1.0-4.3 [facility] Comment on above: Performed By: #### H EMDF ####[address] Lymphocytes/100 WBC (Bld) 14.0 % Low 20.0-40.0 [facility] Comment on above: Performed By: #### H EMDF ####[address], [place] MCH (RBC) [Entitic mass] 25.0 pg Low 26.0-34.0 [facility] Comment on above: Performed By: #### H EMDF ####[address] MCHC 32.9 % Normal 32.0-36.0 [facility] Comment on above: Performed By: #### H EMDF ####[address] MCV (RBC) [Entitic vol] 76.0 fL Low 79.0-98.0 [facility] Comment on above: Performed By: #### H EMDF ####[address] Monocytes (Bld) [#/Vol] 0.5 10*3/uL Normal 0.0-0.8 [facility] Comment on above: Performed By: #### H EMDF ####[address] Monocytes/100 WBC (Bld) 7.6 % Normal 2.0-10.0 [facility] Comment on above: Performed By: #### H EMDF ####[address] Platelet mean volume (Bld) [Entitic vol] 7.9 fL Normal 7.4-10.4 [facility] Comment on above: Performed By: #### H EMDF ####[address] Platelets (Bld) [#/Vol] 325 10*3/uL Normal 140-440 [facility] Comment on above: Performed By: #### H EMDF ####[address] RBC (Bld) [#/Vol] 4.54 10*6/uL Normal 3.80-5.20 [facility] Comment on above: Performed By: #### H EMDF ####[address] [place] [address] WBC (Bld) [#/Vol] 6.2 10*3/uL Normal 3.6-10.7 [facility] Comment on above: Performed By: #### H EMDF ####[address] [address] Ketones Test strip Ql (U)on 09-30-2021 Ketones Ql (U) 150 mg/dl Negative [facility] Work Phone: Comment on above: CRITICAL VALUE *H Laboratory - Chemistry and C hemistry - challengeon 09-30-2021 ALP [Catalytic activity/Vol] 55 U/L 45-117 [facility] Work Phone: ALT [Catalytic activity/Vol] 22 U/L 13-56 [facility] Work Phone: [phone] CO2 [Moles/Vol] 24.0 mmol/L 21.0-32.0 [facility] Work Phone: Globulin (S) [Mass/Vol] 4.0 g/dL 2.2-4.2 [facility] Work Phone: Urea nitrogen/Creatinine [Mass ratio] 12.0 mg/mg 10-20 [facility] Work Phone: Laboratory - Drug toxicology on 09-30-2021 Amphetamines Ql (U) Negative [facility] Work Phone: Benzodiazepines Ql (U) Negative [facility] Work Phone: Cannabinoids Screen Ql (U) Positive [facility] Work Phone: Cocaine Ql (U) Negative [facility] Work Phone: Opiates Ql (U) Negative [facility] Work Phone: Laboratory - Hematology and Cell countson 09-30-2021 Erythrocyte distribution width (RBC) [Entitic vol] 42.7 fL 35.1-43.9 [facility] Work Phone: Erythrocyte distribution width (RBC) [Ratio] 14.9 % 11.6-14.6 [facility] Work Phone: Immature granulocytes/100 WBC (Bld) 0.200 % 0.0-0.9 [facility] Work Phone: Comment on above: IG% - Immature Granu locytes (promyelocytes, myelocytes and metamyelocytes) > 1% indicates that a LEFT SHIFT is Present. MCH (RBC) [Entitic mass] 24.1 pg 27.0-32.0 [facility] Work Phone: Nucleated RBC/100 WBC (Bld) [Ratio] 0 % 0-5 [facility] Work Phone: Lipaseon 09-30-2021 Lipase [Catalytic activity/Vol] 45 U/L Normal 23-300 [facility] Comment on above: Performed By: #### L IPA4, CMP3 ####[facility] [id number] [place] [address] MCHC Auto (RBC) [Mass/Vol]on 09-30-2021 MCHC (RBC) [Mass/Vol] 30.4 g/dL 32-36 [facility] Work Phone: Mucus LM Ql (Urine sed)on Mucus Ql (Urine sed) 1+ /hpf [facility] Work Phone: Nitrite Test strip Ql (U)on 09-30-2021 Nitrite Ql (U) Negative Negative [facility] Work Phone: No Panel Informationon 09-30 Urine Barbiturates Screen Negative [facility] Work Phone: Urine Drug Screen Comment [facility] Work Phone: Comment on above: CONFIRMATORY TESTING FOR ALL POSITIVE URINE DRUG SCREENRESULTS WILL ONLY BE SENT OUT UPON PHYSICIAN ORDER. VISTA Urine Drug Screen methods provide only preliminaryanalytical test results. A more specific alternate chemicalmethod must be used in order to obtain a confirmedanalytical result. Gas chromatography/mass spectrometery(GC/MS) is the preferred confirmatory method. Clinicalconsideration and professional judgement should be appliedto any drug of abuse test result, particularly whenpreliminary positive results are used. URINE TCA TESTING MUST BE ORDERED SEPARATELY. USE TESTMNEMONIC: [facility] Urine Methadone Screen Negative [facility] Work Phone: Urine Methamphetamine-MDMA Screen Negative [facility] Work Phone: Estimated Creatinine Clearance Calc 101.09 ml/min [facility] Work Phone: Estimated GFR (MDRD) Amer 99 mL/min >60 [facility] Work Phone: Comment on above: GFR Calc Estimated GFR (MDRD) Non-Af Amer 82 mL/min >60 [facility] Work Phone: Comment on above: Non- GFR Calc Platelets bldon 09-30-2021 Platelets (Bld) [#/Vol] 327 10*3/uL 150-450 [facility] Work Phone: Protein Test strip Ql (U)on 09-30-2021 Protein Ql (U) 30 mg/dl Negative [facility] Work Phone: Serum or plasma albumin justice urement (mass/volume)on 09-30-2021 Albumin [Mass/Vol] 4.1 g/dL 3.2-5.0 [facility] Work Phone: Serum or plasma albumin/glob ulin mass ratioon 09-30-2021 Albumin/Globulin [Mass ratio] 1.0 {ratio} 0.9-2.4 [facility] Work Phone: Serum or plasma calcium justice urement (mass/volume)on 09-30-2021 Calcium [Mass/Vol] 9.8 mg/dL 8.5-10.1 [facility] Work Phone: Serum or plasma creatinine m easurement (mass/volume)on 09-30-2021 Creatinine [Mass/Vol] 0.92 mg/dL 0.55-1.02 [facility] Work Phone: Comment on above: The validity of the calculated GFR & GFRAA in patients over 70 years has not been determined. Clinical correlation is essential. Serum or plasma urea nitroge n measurement (mass/volume)on 09-30-2021 Urea nitrogen [Mass/Vol] 11 mg/dL 7-18 [facility] Work Phone: Squamous epithelial cells de tection in urine sediment by light microscopyon 09-30-2021 Epithelial cells.squamous LM Ql (Urine sed) 0-5 SEEN /hpf [facility] Work Phone: Thin prep Papanicolaou smear with manual screeningon 09-30-2021 Thin prep Papanicolaou smear with manual screening 17 U/L 15-37 [facility] Work Phone: Thin prep Papanicolaou smear with manual screening 11 5-15 [facility] Work Phone: Urine blood detectionon 09-08 RBC Ql (U) 250 /ul Negative [facility] Work Phone: RBC Ql (U) 50-100 SEEN /hpf [facility] Work Phone: Urine clarityon 09-30-2021 Clarity (U) Sl. Cloudy Clear [facility] Work Phone: Urine color determinationon 09-30-2021 Color (U) Yellow Yellow [facility] Work Phone: Urine glucose detectionon Glucose Ql (U) Normal mg/dl Normal [facility] Work Phone: Urine leukocyte esterase det ection by dipstickon 09-30-2021 Leukocyte esterase Test strip Ql (U) 500 /ul Negative [facility] Work Phone: Urine pHon 09-30-2021 pH (U) 8.0 [pH] [facility] Work Phone: Urine phencyclidine (PCP) de tectionon 09-30-2021 Phencyclidine Ql (U) Negative [facility] Work Phone: Urine sediment bacteria coun t by microscopy (number/high power field)on 09-30-2021 Bacteria LM.HPF (Urine sed) [#/Area] 2 /[HPF] None Seen [facility] Work Phone: Urine specific gravity measu rementon 09-30-2021 Specific gravity (U) [Rel density] 1.010 [facility] Work Phone: Urobilinogen Auto test strip Ql (U)on 09-30-2021 Urobilinogen Ql (U) Normal mg/dl Normal [facility] Work Phone: Basic Metabolic Panelon 09-07 Anion gap [Moles/Vol] 10 mmol/L Normal 3-13 [facility] Comment on above: Performed By: #### B MP3 ####[facility] [email or web address] [address] Calcium [Mass/Vol] 9.2 mg/dL Normal 8.4-10.4 [facility] Comment on above: Performed By: #### B MP3 ####[facility] [email or web address] [address] CO2 [Moles/Vol] 26 mmol/L Normal 22-30 [facility] Comment on above: Performed By: #### B MP3 ####[facility] [email or web address] [address] Glucose [Mass/Vol] 94 mg/dL Normal 70-100 [facility] Comment on above: Performed By: #### B MP3 ####[facility] [email or web address] [address] Urea nitrogen [Mass/Vol] 9 mg/dL Normal 9-20 [facility] Comment on above: Performed By: #### B MP3 ####[facility] [email or web address] [address] Creatinine [Mass/Vol] 0.77 mg/dL Normal 0.52-1.25 [facility] Comment on above: Performed By: #### B MP3 ####[facility] [email or web address] [address] eGFR OTHER > 90.0 Normal >60 [facility] Comment on above: Result Comment: KDIG O guidelines provide the following GFR categories:Stage GFR(ml/min/1.73 m2) TermsG1 >=90 Normal or highG2 60-89 Mildly decreased*G3a 45-59 Mildly to moderately [id number] 30-44 Moderately to severely decreasedG4 15-29 Severely decreasedG5 <15 Kidney failure*Relative to young adult level.In the absence of evidence of kidney damage, neither GFRcategory G1 nor G2 fulfill the criteria for CKD.The CKD-EPI equation is validated in individuals 18 yearsof age and older. Currently the best equation forestimating glomerular filtration rate (GFR) from serumcreatinine in children is the Bedside Boyer equation.It is less accurate in patients with extremes of musclemass, restriction of dietary protein, ingestion of creatine,extra-renal metabolism of creatinine, or treatment withmedications that affect renal tubular creatinine secretion. Performed By: #### B MP3 ####[address] [place], [place] GFR/1.73 sq M.predicted among blacks MDRD (S/P/Bld) [Vol rate/Area] mL/min/{1.73_m2} Normal >60 [facility] Comment on above: Performed By: #### B MP3 ####[address] [place], [place] Chloride [Moles/Vol] 101 mmol/L Normal 98-107 [facility] Comment on above: Performed By: #### B MP3 ####[address] [place], [place] Potassium [Moles/Vol] 4.6 mmol/L Normal 3.5-5.1 [facility] Comment on above: Result Comment: Slig htly hemolysed, interpret with caution. Performed By: #### B MP3 ####[facility] [id number] [place], [place] Sodium [Moles/Vol] 137 mmol/L Normal 135-145 [facility] Comment on above: Performed By: #### B MP3 ####[address] [place], [place] BASIC METABOLIC PANELon 09-07 Anion gap [Moles/Vol] 12 mmol/L 3 - 13 mmol/L [facility] Calcium [Mass/Vol] 8.8 mg/dL 8.4 - 10. 4 mg/dL [facility] Chloride [Moles/Vol] 104 mmol/L 98 - 10 7 mmol/L [facility] CO2 [Moles/Vol] 23 mmol/L 22 - 30 mmol/L [facility] Creatinine [Mass/Vol] 0.59 mg/dL 0.52 - 1.25 mg/dL [facility] EGFR IF NonAfrican Djiboutian >90.0 >60 mL/min [facility] Comment on above: KDIGO guidelines pro vide the following GFR categories: Stage GFR(ml/min/1.73 m2) Terms G1 >=90 Normal or high G2 60-89 Mildly decreased* G3a 45-59 Mildly to moderately decreased G3b 30-44 Moderately to severely decreased G4 15-29 Severely decreased G5 <15 Kidney failure *Relative to young adult level. In the absence of evidence of kidney damage, neither GFR category G1 nor G2 fulfill the criteria for CKD. The CKD-EPI equation is validated in individuals 18 years of age and older. Currently the best equation for estimating glomerular filtration rate (GFR) from serum creatinine in children is the Bedside Boyer equation. It is less accurate in patients with extremes of muscle mass, restriction of dietary protein, ingestion of creatine, extra-renal metabolism of creatinine, or treatment with medications that affect renal tubular creatinine secretion. GFR/1.73 sq M.predicted among blacks MDRD (S/P/Bld) [Vol rate/Area] mL/min/{1.73_m2} >60 mL/min [facility] Glucose [Mass/Vol] 86 mg/dL 70 - 100 mg/dL [facility] Interpretation and review of laboratory results Abnormal [facility] Potassium [Moles/Vol] 3.3 mmol/L Low 3.5 - 5.1 mmol/L [facility] Sodium [Moles/Vol] 138 mmol/L 135 - 145 mmol/L [facility] Urea nitrogen (BldV) [Mass/Vol] <2 Low 9 - 20 mg/dL [facility] Test Performed by [facility], [address] [place], [place] [id number] [place] [address] LAB [facility] Basic Metabolic Panelon 09-07 Calcium [Mass/Vol] 8.8 mg/dL Normal 8.4-10.4 [facility] Comment on above: Performed By: #### H SHELIA REDMOND ####[facility] [place], [place] Glucose [Mass/Vol] 86 mg/dL Normal 70-100 [facility] Comment on above: Performed By: #### H GURMEET REDMOND3 ####[address] [place], [place] Urea nitrogen [Mass/Vol] mg/dL Low 9-20 [facility] Comment on above: Performed By: #### H GURMEET REDMOND3 ####[address] [place], [place] Anion gap [Moles/Vol] 12 mmol/L Normal 3-13 [facility] Comment on above: Performed By: #### H GURMEET REDMOND3 ####[address] CO2 [Moles/Vol] 23 mmol/L Normal 22-30 [facility] Comment on above: Performed By: #### GURMEET MALAVE3 ####[address] Creatinine [Mass/Vol] 0.59 mg/dL Normal 0.52-1.25 [facility] Comment on above: Performed By: #### GURMEET MALAVE3 ####[address] eGFR OTHER > 90.0 Normal >60 [facility] Comment on above: Result Comment: KDIG O guidelines provide the following GFR categories:Stage GFR(ml/min/1.73 m2) TermsG1 >=90 Normal or highG2 60-89 Mildly decreased*G3a 45-59 Mildly to moderately [id number] 30-44 Moderately to severely decreasedG4 15-29 Severely decreasedG5 <15 Kidney failure*Relative to young adult level.In the absence of evidence of kidney damage, neither GFRcategory G1 nor G2 fulfill the criteria for CKD.The CKD-EPI equation is validated in individuals 18 yearsof age and older. Currently the best equation forestimating glomerular filtration rate (GFR) from serumcreatinine in children is the Bedside Boyer equation.It is less accurate in patients with extremes of musclemass, restriction of dietary protein, ingestion of creatine,extra-renal metabolism of creatinine, or treatment withmedications that affect renal tubular creatinine secretion. Performed By: #### H GURMEET REDMOND3 ####[address] [place], [place] GFR/1.73 sq M.predicted among blacks MDRD (S/P/Bld) [Vol rate/Area] mL/min/{1.73_m2} Normal >60 [facility] Comment on above: Performed By: #### H GURMEET REDMOND3 ####[address] [place], [place] Chloride [Moles/Vol] 104 mmol/L Normal 98-107 [facility] Comment on above: Performed By: #### H GURMEET REDMOND3 ####[address] [place], [place] Potassium [Moles/Vol] 3.3 mmol/L Low 3.5-5.1 [facility] Comment on above: Performed By: #### GURMEET MALAVE3 ####[address] Sodium [Moles/Vol] 138 mmol/L Normal 135-145 [facility] Comment on above: Performed By: #### GURMEET MALAVE3 ####[address] CBCon 09-19-2021 Hematocrit (Bld) [Volume fraction] 30.4 % Low 35.0 - 47.0 % [facility] Hemoglobin.gastrointesti nal spec 1 Ql (Stl) 9.8 g/dL Low 11.7 - 16.0 g/dL [facility] Interpretation and review of laboratory results Abnormal [facility] MCH (RBC) [Entitic mass] 24.6 pg Low 26. 0 - 34.0 pg [facility] MCHC (RBC) [Mass/Vol] 32.2 % 32.0 - 36.0 % [facility] MCV (RBC) [Entitic vol] 76.3 fL Low 79.0 - 98.0 fL [facility] Platelet distribution width (Bld) [Ratio] 15.8 % High 11.5 - 14.5 % [facility] Platelet mean volume (Bld) [Entitic vol] 7.9 fL 7.4 - 10.4 fL [facility] Platelets (Bld) [#/Vol] 189 10*3/uL 140 - 440 10*3/uL [facility] RBC (Bld) [#/Vol] 3.99 10*6/uL 3.80 - 5.20 10*6/uL [facility] WBC (Bld) [#/Vol] 4.2 10*3/uL 3.6 - 10.7 10*3/uL [facility] Test Performed by [facility], [facility] [place] [address] [facility] LAB [facility] Hemogramon 09-19-2021 Erythrocyte distribution width (RBC) [Ratio] 15.8 % High 11.5-14.5 [facility] Comment on above: Performed By: #### H NYLA BMP3 ####[address] [place], [place] Hematocrit (Bld) [Volume fraction] 30.4 % Low 35.0-47.0 [facility] Comment on above: Performed By: #### H NYLA BMP3 ####[address] [place], [place] Hemoglobin (Bld) [Mass/Vol] 9.8 g/dL Low 11.7-16.0 [facility] Comment on above: Performed By: #### H NYLA BMP3 ####[address] [place], [place] MCH (RBC) [Entitic mass] 24.6 pg Low 26.0-34.0 [facility] Comment on above: Performed By: #### H NYLA BMP3 ####[address] [place] MCHC 32.2 % Normal 32.0-36.0 [facility] Comment on above: Performed By: #### H NYLA, BMP3 ####[address] [place], [place] MCV (RBC) [Entitic vol] 76.3 fL Low 79.0-98.0 [facility] Comment on above: Performed By: #### H NYLA BMP3 ####[facility] [id number] [place], [place] Platelet mean volume (Bld) [Entitic vol] 7.9 fL Normal 7.4-10.4 [facility] Comment on above: Performed By: #### H NYLA BMP3 ####[facility] [id number] [place], [place] Platelets (Bld) [#/Vol] 189 10*3/uL Normal 140-440 [facility] Comment on above: Performed By: #### H NYLA BMP3 ####[facility] [id number] [place], [place] RBC (Bld) [#/Vol] 3.99 10*6/uL Normal 3.80-5.20 [facility] Comment on above: Performed By: #### H NYLA BMP3 ####[facility] [address] [place], [place] WBC (Bld) [#/Vol] 4.2 10*3/uL Normal 3.6-10.7 [facility] Comment on above: Performed By: #### Ethel NYLA BMP3 ####[facility] [id number] [place], [place] BASIC METABOLIC PANELon 09-07 Calcium [Mass/Vol] 8.6 mg/dL 8.4 - 10. 4 mg/dL [facility] Chloride [Moles/Vol] 105 mmol/L 98 - 10 7 mmol/L [facility] EGFR IF NonAfrican Djiboutian >90.0 >60 mL/min [facility] Comment on above: KDIGO guidelines pro vide the following GFR categories: Stage GFR(ml/min/1.73 m2) Terms G1 >=90 Normal or high G2 60-89 Mildly decreased* G3a 45-59 Mildly to moderately decreased G3b 30-44 Moderately to severely decreased G4 15-29 Severely decreased G5 <15 Kidney failure *Relative to young adult level. In the absence of evidence of kidney damage, neither GFR category G1 nor G2 fulfill the criteria for CKD. The CKD-EPI equation is validated in individuals 18 years of age and older. Currently the best equation for estimating glomerular filtration rate (GFR) from serum creatinine in children is the Bedside Boyer equation. It is less accurate in patients with extremes of muscle mass, restriction of dietary protein, ingestion of creatine, extra-renal metabolism of creatinine, or treatment with medications that affect renal tubular creatinine secretion. Interpretation and review of laboratory results Abnormal [facility] Potassium [Moles/Vol] 3.3 mmol/L Low 3.5 - 5.1 mmol/L [facility] Sodium [Moles/Vol] 138 mmol/L 135 - 145 mmol/L [facility] Urea nitrogen (BldV) [Mass/Vol] <2 Low 9 - 20 mg/dL [facility] Test Performed by [facility], [address] [place] [id number] [place] [address] LAB [facility] Basic Metabolic Panelon 09-07 Calcium [Mass/Vol] 8.6 mg/dL Normal 8.4-10.4 [facility] Comment on above: Performed By: #### H SHELIA REDMOND ####[address] [place] [address] eGFR OTHER > 90.0 Normal >60 [facility] Comment on above: Result Comment: KDIG O guidelines provide the following GFR categories:Stage GFR(ml/min/1.73 m2) TermsG1 >=90 Normal or highG2 60-89 Mildly decreased*G3a 45-59 Mildly to moderately [id number] 30-44 Moderately to severely decreasedG4 15-29 Severely decreasedG5 <15 Kidney failure*Relative to young adult level.In the absence of evidence of kidney damage, neither GFRcategory G1 nor G2 fulfill the criteria for CKD.The CKD-EPI equation is validated in individuals 18 yearsof age and older. Currently the best equation forestimating glomerular filtration rate (GFR) from serumcreatinine in children is the Bedside Boyer equation.It is less accurate in patients with extremes of musclemass, restriction of dietary protein, ingestion of creatine,extra-renal metabolism of creatinine, or treatment withmedications that affect renal tubular creatinine secretion. Performed By: #### H GURMEET REDMOND3 ####[facility] [place] [address] Urea nitrogen [Mass/Vol] mg/dL Low 9-20 [facility] Comment on above: Performed By: #### H NYLA BMP3 ####[facility] [id number] [place] [address] Chloride [Moles/Vol] 105 mmol/L Normal 98-107 [facility] Comment on above: Performed By: #### H NYLA BMP3 ####[address] [facility] [address] Potassium [Moles/Vol] 3.3 mmol/L Low 3.5-5.1 [facility] Comment on above: Performed By: #### H NYLA BMP3 ####[facility] [id number] [place] [address] Sodium [Moles/Vol] 138 mmol/L Normal 135-145 [facility] Comment on above: Performed By: #### H NYLA BMP3 ####[facility] [address] [place] [address] Anion gap [Moles/Vol] 13 mmol/L Normal 3-13 [facility] Comment on above: Performed By: #### H NYLA BMP3 ####[facility] [address] [place] [address] CO2 [Moles/Vol] 20 mmol/L Low 22-30 [facility] Comment on above: Performed By: #### H NYLA BMP3 ####[facility] [address] [place] [address] Creatinine [Mass/Vol] 0.57 mg/dL Normal 0.52-1.25 [facility] Comment on above: Performed By: #### H NYLA BMP3 ####[facility] [address] [place] [address] GFR/1.73 sq M.predicted among blacks MDRD (S/P/Bld) [Vol rate/Area] mL/min/{1.73_m2} Normal >60 [facility] Comment on above: Performed By: #### H NYLA BMP3 ####[facility] [id number] [place] [address] Glucose [Mass/Vol] 80 mg/dL Normal 70-100 [facility] Comment on above: Performed By: #### H NYLA, BMP3 ####[address] [place] [address] CBCon 09-18-2021 Hematocrit (Bld) [Volume fraction] 31.1 % Low 35.0 - 47.0 % [facility] Hemoglobin.gastrointesti nal spec 1 Ql (Stl) 9.7 g/dL Low 11.7 - 16.0 g/dL [facility] Interpretation and review of laboratory results Abnormal [facility] MCH (RBC) [Entitic mass] 24.0 pg Low 26. 0 - 34.0 pg [facility] MCHC (RBC) [Mass/Vol] 31.2 % Low 32.0 - 36.0 % [facility] MCV (RBC) [Entitic vol] 77.0 fL Low 79.0 - 98.0 fL [facility] Platelet distribution width (Bld) [Ratio] 16.0 % High 11.5 - 14.5 % [facility] Platelet mean volume (Bld) [Entitic vol] 8.6 fL 7.4 - 10.4 fL [facility] Platelets (Bld) [#/Vol] 192 10*3/uL 140 - 440 10*3/uL [facility] RBC (Bld) [#/Vol] 4.04 10*6/uL 3.80 - 5.20 10*6/uL [facility] WBC (Bld) [#/Vol] 4.8 10*3/uL 3.6 - 10.7 10*3/uL [facility] Test Performed by [facility], [address] [place] [id number] [place] [address] LAB [facility] CR Abdomen APon 09-18-2021 CR Abdomen AP Normal [facility] Hemogramon 09-18-2021 Erythrocyte distribution width (RBC) [Ratio] 16.0 % High 11.5-14.5 [facility] Comment on above: Performed By: #### SHELIA MALAVE ####[address] [place], [place] Hematocrit (Bld) [Volume fraction] 31.1 % Low 35.0-47.0 [facility] Comment on above: Performed By: #### SHELIA MALAVE ####[address] [place], [place] Hemoglobin (Bld) [Mass/Vol] 9.7 g/dL Low 11.7-16.0 [facility] Comment on above: Performed By: #### H NYLA BMP3 ####[address] [place] MCH (RBC) [Entitic mass] 24.0 pg Low 26.0-34.0 [facility] Comment on above: Performed By: #### H NYLA BMP3 ####[address] [place] MCHC 31.2 % Low 32.0-36.0 [facility] Comment on above: Performed By: #### H NYLA BMP3 ####[address] [place] MCV (RBC) [Entitic vol] 77.0 fL Low 79.0-98.0 [facility] Comment on above: Performed By: #### H NYLA BMP3 ####[address] [place], [place] Platelet mean volume (Bld) [Entitic vol] 8.6 fL Normal 7.4-10.4 [facility] Comment on above: Performed By: #### H NYLA BMP3 ####[address] Platelets (Bld) [#/Vol] 192 10*3/uL Normal 140-440 [facility] Comment on above: Performed By: #### H NYLA BMP3 ####[address] RBC (Bld) [#/Vol] 4.04 10*6/uL Normal 3.80-5.20 [facility] Comment on above: Performed By: #### Ethel REDMOND BMP3 ####[address] WBC (Bld) [#/Vol] 4.8 10*3/uL Normal 3.6-10.7 [facility] Comment on above: Performed By: #### [facility] [place] [facility] [place] ####[address] [address] XR ABDOMEN (KUB) (SINGLE AP VIEW)on 09-18-2021 Patient Name: ADDIS TORRES Diagnostic Radiology ACCESSION EXAM DATE/TIME PROCEDURE ORDERING PROVIDER [id number] 09/18/2021 11:02 EST CR Abdomen AP [id number] [facility] CPT code 49796 Reason For Exam (CR Abdomen AP) constipation, abdominal pain Report ABDOMEN, Single View: INDICATION: Constipation, abdominal pain COMPARISON: None. A single supine view of the abdomen was obtained at 1100 hours. The bowel gas pattern is nonspecific. There are no obvious findings to suggest pneumoperitoneum. The left ureteral stent is reidentified. There is no appreciable mass effect. Review of the osseous structures demonstrate no gross abnormality. IMPRESSION: Left ureteral stent. No acute process. Report Dictated on --- Final --- Dictated: 09/18/2021 11:09 am Dictating Physician: DO GARCIA ALFRED Signed Date and Time: 09/18/2021 11:11 am Signed by: DO GARCIA ALFRED Transcribed Date and Time: 09/18/2021 11:09 [facility] Oswaldo Garcia DO - 09/18/2021 Patient Name: ADDIS TORRES Diagnostic Radiology ACCESSION EXAM DATE/TIME PROCEDURE ORDERING PROVIDER [id number] 09/18/2021 11:02 EST CR Abdomen AP [id number] [facility] CPT code 65309 Reason For Exam (CR Abdomen AP) constipation, abdominal pain Report ABDOMEN, Single View: INDICATION: Constipation, abdominal pain COMPARISON: None. A single supine view of the abdomen was obtained at 1100 hours. The bowel gas pattern is nonspecific. There are no obvious findings to suggest pneumoperitoneum. The left ureteral stent is reidentified. There is no appreciable mass effect. Review of the osseous structures demonstrate no gross abnormality. IMPRESSION: Left ureteral stent. No acute process. Report Dictated on --- Final --- Dictated: 09/18/2021 11:09 am Dictating Physician: DO GARCIA ALFRED Signed Date and Time: 09/18/2021 11:11 am Signed by: DO GARCIA ALFRED Transcribed Date and Time: 09/18/2021 11:09 [facility] Work Phone: Radiology Study observation (narrative) [facility] Work Phone: XR ABDOMEN (KUB) (SINGLE AP VIEW)Ordered By: Oswaldo Garcia on 09-18-2021 [facility] Work Phone: BASIC METABOLIC PANELon 09-07 Anion gap [Moles/Vol] 12 mmol/L 3 - 13 mmol/L [facility] Calcium [Mass/Vol] 8.3 mg/dL Low 8.4 - 10. 4 mg/dL [facility] Chloride [Moles/Vol] 103 mmol/L 98 - 10 7 mmol/L [facility] CO2 [Moles/Vol] 20 mmol/L Low 22 - 30 mmol/L [facility] Creatinine [Mass/Vol] 0.63 mg/dL 0.52 - 1.25 mg/dL [facility] EGFR IF NonAfrican Djiboutian >90.0 >60 mL/min [facility] Comment on above: KDIGO guidelines pro vide the following GFR categories: Stage GFR(ml/min/1.73 m2) Terms G1 >=90 Normal or high G2 60-89 Mildly decreased* G3a 45-59 Mildly to moderately decreased G3b 30-44 Moderately to severely decreased G4 15-29 Severely decreased G5 <15 Kidney failure *Relative to young adult level. In the absence of evidence of kidney damage, neither GFR category G1 nor G2 fulfill the criteria for CKD. The CKD-EPI equation is validated in individuals 18 years of age and older. Currently the best equation for estimating glomerular filtration rate (GFR) from serum creatinine in children is the Bedside Boyer equation. It is less accurate in patients with extremes of muscle mass, restriction of dietary protein, ingestion of creatine, extra-renal metabolism of creatinine, or treatment with medications that affect renal tubular creatinine secretion. GFR/1.73 sq M.predicted among blacks MDRD (S/P/Bld) [Vol rate/Area] mL/min/{1.73_m2} >60 mL/min [facility] Glucose [Mass/Vol] 72 mg/dL 70 - 100 mg/dL [facility] Interpretation and review of laboratory results Abnormal [facility] Potassium [Moles/Vol] 3.4 mmol/L Low 3.5 - 5.1 mmol/L [facility] Sodium [Moles/Vol] 134 mmol/L Low 135 - 145 mmol/L [facility] Urea nitrogen (BldV) [Mass/Vol] 5 mg/dL Low 9 - 20 mg/dL [facility] Test Performed by [facility], [facility] [place] [address] [facility] Basic Metabolic Panelon 09-07 Calcium [Mass/Vol] 8.3 mg/dL Low 8.4-10.4 [facility] Comment on above: Performed By: #### B MP3, HEMOG ####[address] [place] [address] Anion gap [Moles/Vol] 12 mmol/L Normal 3-13 [facility] Comment on above: Performed By: #### B MP3, HEMOG ####[address] [place] [address] CO2 [Moles/Vol] 20 mmol/L Low 22-30 [facility] Comment on above: Performed By: #### B MP3, HEMOG ####[address] [place] [address] Creatinine [Mass/Vol] 0.63 mg/dL Normal 0.52-1.25 [facility] Comment on above: Performed By: #### B MP3, HEMOG ####[address] [place] [address] eGFR OTHER > 90.0 Normal >60 [facility] Comment on above: Result Comment: KDIG O guidelines provide the following GFR categories:Stage GFR(ml/min/1.73 m2) TermsG1 >=90 Normal or highG2 60-89 Mildly decreased*G3a 45-59 Mildly to moderately [id number] 30-44 Moderately to severely decreasedG4 15-29 Severely decreasedG5 <15 Kidney failure*Relative to young adult level.In the absence of evidence of kidney damage, neither GFRcategory G1 nor G2 fulfill the criteria for CKD.The CKD-EPI equation is validated in individuals 18 yearsof age and older. Currently the best equation forestimating glomerular filtration rate (GFR) from serumcreatinine in children is the Bedside Boyer equation.It is less accurate in patients with extremes of musclemass, restriction of dietary protein, ingestion of creatine,extra-renal metabolism of creatinine, or treatment withmedications that affect renal tubular creatinine secretion. Performed By: #### B MP3, HEMOG ####[address] [place] [address] GFR/1.73 sq M.predicted among blacks MDRD (S/P/Bld) [Vol rate/Area] mL/min/{1.73_m2} Normal >60 [facility] Comment on above: Performed By: #### Rubén MENDENHALL3, HEMOG ####[address] [place] [address] Glucose [Mass/Vol] 72 mg/dL Normal 70-100 [facility] Comment on above: Performed By: #### Rubén MP3, HEMOG ####[address] [place] [address] Urea nitrogen [Mass/Vol] 5 mg/dL Low 9-20 [facility] Comment on above: Performed By: #### Rubén MENDENHALL3, HEMOG ####[address] [place] [address] Chloride [Moles/Vol] 103 mmol/L Normal 98-107 [facility] Comment on above: Performed By: #### B MP3, HEMOG ####[address] [place] [address] Potassium [Moles/Vol] 3.4 mmol/L Low 3.5-5.1 [facility] Comment on above: Performed By: #### B MP3, HEMOG ####[address] [place] [address] Sodium [Moles/Vol] 134 mmol/L Low 135-145 [facility] Comment on above: Performed By: #### B MP3, HEMOG ####[facility] [place] [address] CBCon 09-17-2021 Hematocrit (Bld) [Volume fraction] 29.7 % Low 35.0 - 47.0 % [facility] Hemoglobin.gastrointesti nal spec 1 Ql (Stl) 9.4 g/dL Low 11.7 - 16.0 g/dL [facility] Interpretation and review of laboratory results Abnormal [facility] MCH (RBC) [Entitic mass] 24.3 pg Low 26. 0 - 34.0 pg [facility] MCHC (RBC) [Mass/Vol] 31.7 % Low 32.0 - 36.0 % [facility] MCV (RBC) [Entitic vol] 76.8 fL Low 79.0 - 98.0 fL [facility] Platelet distribution width (Bld) [Ratio] 15.9 % High 11.5 - 14.5 % [facility] Platelet mean volume (Bld) [Entitic vol] 7.9 fL 7.4 - 10.4 fL [facility] Platelets (Bld) [#/Vol] 178 10*3/uL 140 - 440 10*3/uL [facility] RBC (Bld) [#/Vol] 3.87 10*6/uL 3.80 - 5.20 10*6/uL [facility] WBC (Bld) [#/Vol] 4.7 10*3/uL 3.6 - 10.7 10*3/uL [facility] Test Performed by [facility], [facility] [place] [address] [facility] Hemogramon 09-17-2021 Erythrocyte distribution width (RBC) [Ratio] 15.9 % High 11.5-14.5 [facility] Comment on above: Performed By: #### B MPRaffi, HEMOG ####[facility] [place] [address] Hematocrit (Bld) [Volume fraction] 29.7 % Low 35.0-47.0 [facility] Comment on above: Performed By: #### B MP3, HEMOG ####[facility] [place] [address] Hemoglobin (Bld) [Mass/Vol] 9.4 g/dL Low 11.7-16.0 [facility] Comment on above: Performed By: #### B MP3, HEMOG ####[address] [place], [place] MCH (RBC) [Entitic mass] 24.3 pg Low 26.0-34.0 [facility] Comment on above: Performed By: #### B MP3, HEMOG ####[address] [place] MCHC 31.7 % Low 32.0-36.0 [facility] Comment on above: Performed By: #### B MP3, HEMOG ####[address] [place], [place] MCV (RBC) [Entitic vol] 76.8 fL Low 79.0-98.0 [facility] Comment on above: Performed By: #### B MP3, HEMOG ####[address] [place] Platelet mean volume (Bld) [Entitic vol] 7.9 fL Normal 7.4-10.4 [facility] Comment on above: Performed By: #### B MP3, HEMOG ####[address] [place], [place] Platelets (Bld) [#/Vol] 178 10*3/uL Normal 140-440 [facility] Comment on above: Performed By: #### B MP3, HEMOG ####[address] [place], [place] RBC (Bld) [#/Vol] 3.87 10*6/uL Normal 3.80-5.20 [facility] Comment on above: Performed By: #### B MP3, HEMOG ####[address] [place], [place] WBC (Bld) [#/Vol] 4.7 10*3/uL Normal 3.6-10.7 [facility] Comment on above: Performed By: #### B MP3, HEMOG ####[address] [place] [address] BASIC METABOLIC PANELon 09-07 Anion gap [Moles/Vol] 12 mmol/L 3 - 13 mmol/L [facility] Calcium [Mass/Vol] 8.9 mg/dL 8.4 - 10. 4 mg/dL [facility] Chloride [Moles/Vol] 101 mmol/L 98 - 10 7 mmol/L [facility] CO2 [Moles/Vol] 22 mmol/L 22 - 30 mmol/L [facility] Creatinine [Mass/Vol] 0.61 mg/dL 0.52 - 1.25 mg/dL [facility] EGFR IF NonAfrican Djiboutian >90.0 >60 mL/min [facility] Comment on above: KDIGO guidelines pro vide the following GFR categories: Stage GFR(ml/min/1.73 m2) Terms G1 >=90 Normal or high G2 60-89 Mildly decreased* G3a 45-59 Mildly to moderately decreased G3b 30-44 Moderately to severely decreased G4 15-29 Severely decreased G5 <15 Kidney failure *Relative to young adult level. In the absence of evidence of kidney damage, neither GFR category G1 nor G2 fulfill the criteria for CKD. The CKD-EPI equation is validated in individuals 18 years of age and older. Currently the best equation for estimating glomerular filtration rate (GFR) from serum creatinine in children is the Bedside Boyer equation. It is less accurate in patients with extremes of muscle mass, restriction of dietary protein, ingestion of creatine, extra-renal metabolism of creatinine, or treatment with medications that affect renal tubular creatinine secretion. GFR/1.73 sq M.predicted among blacks MDRD (S/P/Bld) [Vol rate/Area] mL/min/{1.73_m2} >60 mL/min [facility] Glucose [Mass/Vol] 65 mg/dL Low 70 - 100 mg/dL [facility] Interpretation and review of laboratory results Abnormal [facility] Potassium [Moles/Vol] 3.4 mmol/L Low 3.5 - 5.1 mmol/L [facility] Sodium [Moles/Vol] 135 mmol/L 135 - 145 mmol/L [facility] Urea nitrogen (BldV) [Mass/Vol] 6 mg/dL Low 9 - 20 mg/dL [facility] Test Performed by [facility], [address] [place] [address] [facility] Basic Metabolic Panelon 09-07 Calcium [Mass/Vol] 8.9 mg/dL Normal 8.4-10.4 [facility] Comment on above: Performed By: #### B MP3 ####[facility] [id number] [place], [place] Anion gap [Moles/Vol] 12 mmol/L Normal 3-13 [facility] Comment on above: Performed By: #### B MP3 ####[facility] [id number] [place], [place] CO2 [Moles/Vol] 22 mmol/L Normal 22-30 [facility] Comment on above: Performed By: #### B MP3 ####[facility] [id number] [place], [place] Creatinine [Mass/Vol] 0.61 mg/dL Normal 0.52-1.25 [facility] Comment on above: Performed By: #### B MP3 ####[facility] [id number] [place], [place] eGFR OTHER > 90.0 Normal >60 [facility] Comment on above: Result Comment: KDIG O guidelines provide the following GFR categories:Stage GFR(ml/min/1.73 m2) TermsG1 >=90 Normal or highG2 60-89 Mildly decreased*G3a 45-59 Mildly to moderately blrdfxgnbR2s 30-44 Moderately to severely decreasedG4 15-29 Severely decreasedG5 <15 Kidney failure*Relative to young adult level.In the absence of evidence of kidney damage, neither GFRcategory G1 nor G2 fulfill the criteria for CKD.The CKD-EPI equation is validated in individuals 18 yearsof age and older. Currently the best equation forestimating glomerular filtration rate (GFR) from serumcreatinine in children is the Bedside Boyer equation.It is less accurate in patients with extremes of musclemass, restriction of dietary protein, ingestion of creatine,extra-renal metabolism of creatinine, or treatment withmedications that affect renal tubular creatinine secretion. Performed By: #### B MP3 ####[facility] [place], [place] GFR/1.73 sq M.predicted among blacks MDRD (S/P/Bld) [Vol rate/Area] mL/min/{1.73_m2} Normal >60 [facility] Comment on above: Performed By: #### B MP3 ####[address] [place], [place] Glucose [Mass/Vol] 65 mg/dL Low 70-100 [facility] Comment on above: Performed By: #### B MP3 ####[address] [place], [place] Urea nitrogen [Mass/Vol] 6 mg/dL Low 9-20 [facility] Comment on above: Performed By: #### B MP3 ####[address] [place], [place] Chloride [Moles/Vol] 101 mmol/L Normal 98-107 [facility] Comment on above: Performed By: #### B MP3 ####[address] [place], [place] Potassium [Moles/Vol] 3.4 mmol/L Low 3.5-5.1 [facility] Comment on above: Performed By: #### B MP3 ####[address] [place], [place] Sodium [Moles/Vol] 135 mmol/L Normal 135-145 [facility] Comment on above: Performed By: #### B MP3 ####[address] [place], [place] CBCon 09-16-2021 Hematocrit (Bld) [Volume fraction] 32.4 % Low 35.0 - 47.0 % [facility] Hemoglobin.gastrointesti nal spec 1 Ql (Stl) 10.3 g/dL Low 11.7 - 16.0 g/dL [facility] Interpretation and review of laboratory results Abnormal [facility] MCH (RBC) [Entitic mass] 24.7 pg Low 26. 0 - 34.0 pg [facility] MCHC (RBC) [Mass/Vol] 31.9 % Low 32.0 - 36.0 % [facility] MCV (RBC) [Entitic vol] 77.5 fL Low 79.0 - 98.0 fL [facility] Platelet distribution width (Bld) [Ratio] 15.9 % High 11.5 - 14.5 % [facility] Platelet mean volume (Bld) [Entitic vol] 7.5 fL 7.4 - 10.4 fL [facility] Platelets (Bld) [#/Vol] 181 10*3/uL 140 - 440 10*3/uL [facility] RBC (Bld) [#/Vol] 4.19 10*6/uL 3.80 - 5.20 10*6/uL [facility] WBC (Bld) [#/Vol] 5.2 10*3/uL 3.6 - 10.7 10*3/uL [facility] Test Performed by [facility], [address] [place] [id number] [place] [address] - [facility] Hem[facility] 09-16-2021 Erythrocyte distribution width (RBC) [Ratio] 15.9 % High 11.5-14.5 [facility] Comment on above: Performed By: #### H EMOG ####[address] [place], [place] Hematocrit (Bld) [Volume fraction] 32.4 % Low 35.0-47.0 [facility] Comment on above: Performed By: #### H EMOG ####[address] [place], [place] Hemoglobin (Bld) [Mass/Vol] 10.3 g/dL Low 11.7-16.0 [facility] Comment on above: Performed By: #### H EMOG ####[address] [place], [place] MCH (RBC) [Entitic mass] 24.7 pg Low 26.0-34.0 [facility] Comment on above: Performed By: #### H EMOG ####[address] [place], [place] MCHC 31.9 % Low 32.0-36.0 [facility] Comment on above: Performed By: #### H EMOG ####[address] [place], [place] MCV (RBC) [Entitic vol] 77.5 fL Low 79.0-98.0 [facility] Comment on above: Performed By: #### H EMOG ####[facility] [place], [place] Platelet mean volume (Bld) [Entitic vol] 7.5 fL Normal 7.4-10.4 [facility] Comment on above: Performed By: #### H EMOG ####[facility] [place], [place] Platelets (Bld) [#/Vol] 181 10*3/uL Normal 140-440 [facility] Comment on above: Performed By: #### H EMOG ####[facility] [place], [place] RBC (Bld) [#/Vol] 4.19 10*6/uL Normal 3.80-5.20 [facility] Comment on above: Performed By: #### H EMOG ####[facility] [place], [place] WBC (Bld) [#/Vol] 5.2 10*3/uL Normal 3.6-10.7 [facility] Comment on above: Performed By: #### H EMOG ####[address] [place], [place] CT PELVIS W WO IV AND ORAL C ONTRASTon 09-15-2021 Patient Name: ADDIS TORRES Computed Tomography ACCESSION EXAM DATE/TIME PROCEDURE ORDERING PROVIDER [id number] 09/15/2021 07:[address] Pelvis w/ + w/o GELA OCHOA Contrast CPT code 63608 Reason For Exam (CT Pelvis w/ + w/o Contrast) ct cystogram (post lt ureteroureteotomy with insertion of antegrade ureteral stent) Report CT Pelvis w/ + w/o Contrast CLINICAL INDICATION: ct cystogram (post lt ureteroureteotomy with insertion of antegrade ureteral stent) TECHNIQUE: CT pelvis without IV contrast. An initial scan was performed. Subsequently, the bladder was filled via Ocasio catheter with contrast. Final scan was performed after partial draining of bladder. Multiplanar reformations. COMPARISON: 09/12/2021 FINDINGS: Initial scan shows mid and lower aspect of the left ureteral stent, which extends into the bladder. Ocasio catheter is noted in the bladder. There is some edema along the course of the visualized portions of the left ureter. Scan obtained with bladder filling shows grossly normal-appearing bladder. There is no extravasation of contrast seen. Appearance of left ureter and left ureteral stent unchanged. Scans obtained after partial drainage of the bladder also shows a grossly normal appearance of the bladder, and no extravasation seen. Again the appearance of the left ureter and left ureteral stent as visualized, unchanged. IMPRESSION: 1. No extravasation seen. Report Dictated on Workstation: [email or web address] --- Final --- Dictated: 09/15/2021 10:52 pm Dictating Physician: MD JANE JOHN R Signed Date and Time: 09/15/2021 10:59 pm Signed by: MD JANE JOHN R Transcribed Date and Time: 09/15/2021 10:52 [facility] Ziyad Jane MD - 09/15/2021 Patient Name: ADDIS TORRES Computed Tomography ACCESSION EXAM DATE/TIME PROCEDURE ORDERING PROVIDER [id number] 09/15/2021 07:[address] Pelvis w/ + w/o GELA OCHOA Contrast CPT code 79300 Reason For Exam (CT Pelvis w/ + w/o Contrast) ct cystogram (post lt ureteroureteotomy with insertion of antegrade ureteral stent) Report CT Pelvis w/ + w/o Contrast CLINICAL INDICATION: ct cystogram (post lt ureteroureteotomy with insertion of antegrade ureteral stent) TECHNIQUE: CT pelvis without IV contrast. An initial scan was performed. Subsequently, the bladder was filled via Ocasio catheter with contrast. Final scan was performed after partial draining of bladder. Multiplanar reformations. COMPARISON: 09/12/2021 FINDINGS: Initial scan shows mid and lower aspect of the left ureteral stent, which extends into the bladder. Ocasio catheter is noted in the bladder. There is some edema along the course of the visualized portions of the left ureter. Scan obtained with bladder filling shows grossly normal-appearing bladder. There is no extravasation of contrast seen. Appearance of left ureter and left ureteral stent unchanged. Scans obtained after partial drainage of the bladder also shows a grossly normal appearance of the bladder, and no extravasation seen. Again the appearance of the left ureter and left ureteral stent as visualized, unchanged. IMPRESSION: 1. No extravasation seen. Report Dictated on Workstation: ANDREA --- Final --- Dictated: 09/15/2021 10:52 pm Dictating Physician: MD JANE JOHN R Signed Date and Time: 09/15/2021 10:59 pm Signed by: MD JANE JOHN R Transcribed Date and Time: 09/15/2021 10:52 [facility] Work Phone: Radiology Study observation (narrative) [facility] Work Phone: CT PELVIS W WO IV AND ORAL C ONTRASTOrdered By: Ziyad Jane on 09-15-2021 [email or web address] Work Phone: CT Pelvis w/ + w/o Contrasto n 09-15-2021 CT Pelvis w/ + w/o Contrast Normal [facility] CULTURE URINEon 09-15-2021 CULTURE URINE CULTURE URINE --> St atus: F No growth (<1,000 CFU/ml). Normal [facility] Comment on above: Performed By: #### C /UR ####[address] [place], [place] Culture, Urineon 09-15-2021 Bacteria identified Cx Nom (U) No growth (<1,000 CFU/ml). [facility] Test Performed by [facility], [address] [place] [id number] [place] [address] LAB [facility] Basic Metabolic Panelon Anion gap [Moles/Vol] 12 mmol/L Normal 3-13 [facility] Comment on above: Performed By: #### H JANINEG, BMP3M, MG3 ####[address] [place], [place] Calcium [Mass/Vol] 9.2 mg/dL Normal 8.4-10.4 [facility] Comment on above: Performed By: #### H EMOG, BMP3M, MG3 ####[facility] [place] [address] CO2 [Moles/Vol] 28 mmol/L Normal 22-30 [facility] Comment on above: Performed By: #### H NYLA BMP3M, MG3 ####[facility] [place] [address] Glucose [Mass/Vol] 85 mg/dL Normal 70-100 [facility] Comment on above: Performed By: #### H NYLA BMP3M, MG3 ####[facility] [place] [address] Urea nitrogen [Mass/Vol] 7 mg/dL Low 9-20 [facility] Comment on above: Performed By: #### H GURMEET REDMOND3M, MG3 ####[address] [place] [address] Creatinine [Mass/Vol] 0.54 mg/dL Normal 0.52-1.25 [facility] Comment on above: Performed By: #### H NYLA BMP3M, MG3 ####[address] [place] [address] eGFR OTHER > 90.0 Normal >60 [facility] Comment on above: Result Comment: KDIG O guidelines provide the following GFR categories:Stage GFR(ml/min/1.73 m2) TermsG1 >=90 Normal or highG2 60-89 Mildly decreased*G3a 45-59 Mildly to moderately lytbtixhxM4y 30-44 Moderately to severely decreasedG4 15-29 Severely decreasedG5 <15 Kidney failure*Relative to young adult level.In the absence of evidence of kidney damage, neither GFRcategory G1 nor G2 fulfill the criteria for CKD.The CKD-EPI equation is validated in individuals 18 yearsof age and older. Currently the best equation forestimating glomerular filtration rate (GFR) from serumcreatinine in children is the Bedside Boyer equation.It is less accurate in patients with extremes of musclemass, restriction of dietary protein, ingestion of creatine,extra-renal metabolism of creatinine, or treatment withmedications that affect renal tubular creatinine secretion. Performed By: #### H NYLA BMP3M, MG3 ####[facility] [place], [place] GFR/1.73 sq M.predicted among blacks MDRD (S/P/Bld) [Vol rate/Area] mL/min/{1.73_m2} Normal >60 [facility] Comment on above: Performed By: #### H GURMEET REDMOND3M, MG3 ####[facility] [place], [place] Chloride [Moles/Vol] 94 mmol/L Low 98-107 [facility] Comment on above: Performed By: #### H GURMEET REDMOND3Peter, MG3 ####[address] [place], [place] Potassium [Moles/Vol] 2.8 mmol/L Low 3.5-5.1 [facility] Comment on above: Performed By: #### H SLIM REDMOND, MG3 ####[address] [place], [place] Sodium [Moles/Vol] 135 mmol/L Normal 135-145 [facility] Comment on above: Performed By: #### H SLIM REDMOND, MG3 ####[facility] [id number] [place], [place] Basic Metabolic Panel w/ Ref janie to [facility] 09-14-2021 Anion gap [Moles/Vol] 12 mmol/L 3 - 13 mmol/L [facility] Calcium [Mass/Vol] 9.2 mg/dL 8.4 - 10. 4 mg/dL [facility] Chloride [Moles/Vol] 94 mmol/L Low 98 - 10 7 mmol/L [facility] CO2 [Moles/Vol] 28 mmol/L 22 - 30 mmol/L [facility] Creatinine [Mass/Vol] 0.54 mg/dL 0.52 - 1.25 mg/dL [facility] EGFR IF NonAfrican Djiboutian >90.0 >60 mL/min [facility] Comment on above: KDIGO guidelines pro vide the following GFR categories: Stage GFR(ml/min/1.73 m2) Terms G1 >=90 Normal or high G2 60-89 Mildly decreased* G3a 45-59 Mildly to moderately decreased G3b 30-44 Moderately to severely decreased G4 15-29 Severely decreased G5 <15 Kidney failure *Relative to young adult level. In the absence of evidence of kidney damage, neither GFR category G1 nor G2 fulfill the criteria for CKD. The CKD-EPI equation is validated in individuals 18 years of age and older. Currently the best equation for estimating glomerular filtration rate (GFR) from serum creatinine in children is the Bedside Boyer equation. It is less accurate in patients with extremes of muscle mass, restriction of dietary protein, ingestion of creatine, extra-renal metabolism of creatinine, or treatment with medications that affect renal tubular creatinine secretion. GFR/1.73 sq M.predicted among blacks MDRD (S/P/Bld) [Vol rate/Area] mL/min/{1.73_m2} >60 mL/min [facility] Glucose [Mass/Vol] 85 mg/dL 70 - 100 mg/dL [facility] Interpretation and review of laboratory results Abnormal [facility] Potassium [Moles/Vol] 2.8 mmol/L Low 3.5 - 5.1 mmol/L [facility] Sodium [Moles/Vol] 135 mmol/L 135 - 145 mmol/L [facility] Urea nitrogen (BldV) [Mass/Vol] 7 mg/dL Low 9 - 20 mg/dL [facility] Test Performed by [facility], [address] [place] [id number] [place] [address] LAB [facility] CBCon 09-14-2021 Hematocrit (Bld) [Volume fraction] 35.3 % 35.0 - 47.0 % [facility] Hemoglobin.gastrointesti nal spec 1 Ql (Stl) 11.2 g/dL Low 11.7 - 16.0 g/dL [facility] Interpretation and review of laboratory results Abnormal [facility] MCH (RBC) [Entitic mass] 24.1 pg Low 26. 0 - 34.0 pg [facility] MCHC (RBC) [Mass/Vol] 31.7 % Low 32.0 - 36.0 % [facility] MCV (RBC) [Entitic vol] 76.2 fL Low 79.0 - 98.0 fL [facility] Platelet distribution width (Bld) [Ratio] 16.2 % High 11.5 - 14.5 % [facility] Platelet mean volume (Bld) [Entitic vol] 7.7 fL 7.4 - 10.4 fL [facility] Platelets (Bld) [#/Vol] 256 10*3/uL 140 - 440 10*3/uL [facility] RBC (Bld) [#/Vol] 4.63 10*6/uL 3.80 - 5.20 10*6/uL [facility] WBC (Bld) [#/Vol] 8.0 10*3/uL 3.6 - 10.7 10*3/uL [facility] Test Performed by [facility], [facility] [place] [address] [facility] CR Abdomen APon 09-14-2021 CR Abdomen AP Normal [facility] Complete Urinalysison 2021 Appearance (U) Clear Normal Clear [facility] Comment on above: Result Comment: . Performed By: #### C UA2 ####[address] [place], [place] Bacteria Few Abnormal Negative [facility] Comment on above: Result Comment: . Performed By: #### C UA2 ####[address] Bilirubin,Urine Negative Normal Negative [facility] Comment on above: Result Comment: . Performed By: #### C UA2 ####[facility] [id number] [place], [place] Cast, Hyaline Negative Normal Negative [facility] Comment on above: Result Comment: . Performed By: #### C UA2 ####[facility] [address] Color (U) Light-Yellow Normal Lt. Yellow [facility] Comment on above: Result Comment: . Performed By: #### C UA2 ####[facility] [address] [place], [place] Glucose Ql (U) Normal Normal Normal (<70) [facility] Comment on above: Result Comment: . Performed By: #### C UA2 ####[address] [place], [place] Ketone,Urine > 150 Abnormal Negative [facility] Comment on above: Result Comment: . Performed By: #### C UA2 ####[id number] [place], [place] Leukocytes,Urine 250 Nesha/uL Abnormal Negative [facility] Comment on above: Result Comment: . Performed By: #### C UA2 ####[address] [place], [place] Mucous Threads Few Normal Negative [facility] Comment on above: Result Comment: . Performed By: #### C UA2 ####[address] [place], [place] Nitrites,Urine Negative Normal Negative [facility] Comment on above: Result Comment: . Performed By: #### C UA2 ####[address] Occult Blood,Urine 1.0 mg/dL Abnormal Negative [facility] Comment on above: Result Comment: . Performed By: #### C UA2 ####[address] pH,Urine 6.5 Normal 5.0-8.0 [facility] Comment on above: Result Comment: . Performed By: #### C UA2 ####[address] [place], [place] Protein (U) [Mass/Vol] 50 mg/dL Abnormal Negative [facility] Comment on above: Result Comment: . Performed By: #### C UA2 ####[address] RBC, Urine 51 - 100 Abnormal 0-2 [facility] Comment on above: Result Comment: . Performed By: #### C UA2 ####[address] Specific [place],Urine 1.019 Normal 1.005 - 1.030 [facility] Comment on above: Result Comment: . Performed By: #### C UA2 ####[address] Squamous Epithelial Negative Normal 3-5 [facility] Comment on above: Result Comment: . Performed By: #### C UA2 ####[address], [place] Urobilinogen,Urine Normal Normal Normal (0-1) [facility] Comment on above: Result Comment: . Performed By: #### C UA2 ####[address] WBC, Urine 3 - 5 Normal 0-5 [facility] Comment on above: Result Comment: . Performed By: #### C UA2 ####[address] Hemogramon 09-14-2021 Erythrocyte distribution width (RBC) [Ratio] 16.2 % High 11.5-14.5 [facility] Comment on above: Performed By: #### H NYLA BMP3M, MG3 ####[address] Hematocrit (Bld) [Volume fraction] 35.3 % Normal 35.0-47.0 [facility] Comment on above: Performed By: #### H EMOYo, BMP3M, MG3 ####[address] Hemoglobin (Bld) [Mass/Vol] 11.2 g/dL Low 11.7-16.0 [facility] Comment on above: Performed By: #### H EMOG, BMP3M, MG3 ####[address] MCH (RBC) [Entitic mass] 24.1 pg Low 26.0-34.0 [facility] Comment on above: Performed By: #### H EMOYo, BMP3M, MG3 ####[address] MCHC 31.7 % Low 32.0-36.0 [facility] Comment on above: Performed By: #### H EMOG, BMP3M, MG3 ####[address] MCV (RBC) [Entitic vol] 76.2 fL Low 79.0-98.0 [facility] Comment on above: Performed By: #### H NYLA, BMP3M, MG3 ####[facility] [id number] [place], [place] Platelet mean volume (Bld) [Entitic vol] 7.7 fL Normal 7.4-10.4 [facility] Comment on above: Performed By: #### H NYLA BMP3M, MG3 ####[facility] [id number] [place], [place] Platelets (Bld) [#/Vol] 256 10*3/uL Normal 140-440 [facility] Comment on above: Performed By: #### H NYLA BMP3M, MG3 ####[id number] [place] RBC (Bld) [#/Vol] 4.63 10*6/uL Normal 3.80-5.20 [facility] Comment on above: Performed By: #### H NYLA, BMP3M, MG3 ####[facility] [id number] [place], [place] WBC (Bld) [#/Vol] 8.0 10*3/uL Normal 3.6-10.7 [facility] Comment on above: Performed By: #### H NYLA, BMP3M, MG3 ####[facility] [id number] [place], [place] LABORATORYOrdered By: Russell chiu on 09-14-2021 Appearance (U) Clear (09/14/21 4:29 AM) Invalid Interpretation Code Auto Urine SS Bacteria LM.HPF (Urine sed) [#/Area] 3 /[HPF] Invalid Interpretation Code Negative/H PF Auto Urine SS Bilirubin Ql (U) Negative (09/14/21 4:29 AM) Invalid Interpretation Code Neg-Trace Auto Urine SS Color (U) Yellow (09/14/21 4:29 AM) Invalid Interpretation Code Auto Urine SS Crystals.amorphous LM.HPF (Urine sed) [#/Area] 3 /[HPF] Invalid Interpretation Code Auto Urine SS Glucose Test strip (U) [Mass/Vol] Negative Invalid Interpretation Code Negativemg /dL Auto Urine SS Hemoglobin Auto test strip (U) [Mass/Vol] Moderate *ABN* (09/14/21 4:29 AM) Invalid Interpretation Code Neg-Trace AH Auto Urine SS Ketones Ql (U) 40 mg/dL Invalid Interpretation Code Neg-Tracem g/dL AH Auto Urine SS RBC.non-dysmorphic LM Ql (Urine sed) 5-10 /HPF Invalid Interpretation Code Auto Urine SS UA Leuk Est Trace (09/14/21 4:29 AM) Invalid Interpretation Code Negative AH Auto Urine SS UA Nitrite Negative (09/14/21 4:29 AM) Invalid Interpretation Code Negative AH Auto Urine SS UA pH 6.5 (09/14/21 4:29 AM) Invalid Interpretation Code 5.0 - 8.0 AH Auto Urine SS UA Protein Trace mg/dL Invalid Interpretation Code Negativemg /dL AH Auto Urine SS UA RBC 25-50 /HPF Invalid Interpretation Code 0-2/HPF Auto Urine SS UA Spec Grav 1.015 (09/14/21 4:29 AM) Invalid Interpretation Code Auto Urine SS UA Specimen Type Clean Catch (09/14/21 4:29 AM) Invalid Interpretation Code Auto Urine SS UA Squam Epithelial 3-5 /HPF Invalid Interpretation Code 0-20/HPF Auto Urine SS UA Urobilinogen 0.2 E.U./dL Invalid Interpretation Code AH Auto Urine SS WBC LM.HPF (Urine sed) [#/Area] Negative Invalid Interpretation Code 0-5/HPF AH Auto Urine SS Magnesiumon 09-14-2021 Magnesium [Mass/Vol] 2.1 mg/dL Normal 1.6-2.3 [facility] Comment on above: Performed By: #### H EMOG, BMP3M, MG3 ####[facility] [place] [address] Magnesium [Mass/Vol] 2.1 mg/dL 1.6 - 2 .3 mg/dL [facility] Test Performed by [facility], [address] [place], [place] [id number] [place] [address] LAB [facility] Urinalysison 09-14-2021 Appearance (U) Clear Clear NA [facility] Comment on above: . Bacteria, UA Few Abnormal Negative /[HPF] [facility] Comment on above: . Bilirubin Urine Negative Negative mg/dL [facility] Comment on above: . Color (U) Light-Yellow Lt. Yellow NA [facility] Comment on above: . Glucose, Ur Normal Normal (<70) mg/dL [facility] Comment on above: . Hyaline Casts, UA Negative Negative /[LPF] [facility] Comment on above: . Interpretation and review of laboratory results Abnormal [facility] Ketones Ql (U) >150 Abnormal Negative mg/dL [facility] Comment on above: . LEUKOCYTES, UA 250 Abnormal Negative Nesha/uL [facility] Comment on above: . Mucous Threads Few Negative /[LPF] [facility] Comment on above: . Nitrite, Urine Negative Negative NA [facility] Comment on above: . Occult Blood,Urine 1.0 mg/dL Abnormal Negative [facility] Comment on above: . pH (U) 6.5 [pH] [facility] Comment on above: . Protein (U) [Mass/Vol] 50 mg/dL Abnormal Negative [facility] Comment on above: . RBC, UA 51-100 Abnormal 0 - 2 /[HPF] [facility] Comment on above: . Specific [place], Urine 1.019 S [facility] Comment on above: . Squam Epithel, UA Negative 3 - 5 /[HPF] [facility] Comment on above: . Urobilinogen, Urine Normal Normal (0-1) mg/dL [facility] Comment on above: . WBC, UA 3-5 0 - 5 /[HPF] [facility] Comment on above: . Test Performed by [address] LAB [facility] XR ABDOMEN (KUB) (SINGLE AP VIEW)on 09-14-2021 [facility]: [id number] ACCESSION EXAM DATE/TIME PROCEDURE ORDERING PROVIDER [id number] 09/14/2021 13:14 EST CR Abdomen AP UNASSIGNED, UNASSIGNED CPT code 60088 Reason For Exam (CR Abdomen AP) abdominal pain, ureteral stent, constipation Report Supine view of the abdomen, 09/14/2021. Reason for examination: Abdominal pain. Constipation. History of ureteral stent. COMPARISON: September 09, 2021. FINDINGS: A left ureteral stent is again noted and appears to be in satisfactory position. There may be small left renal calculi. Bowel gas pattern is nonspecific. There is a moderate amount of fecal material in the colon, consistent with history of constipation. There is excreted contrast in urinary bladder. IMPRESSION: Moderate amount fecal material. No definite acute process identified. Report Dictated on --- Final --- Dictated: 09/14/2021 2:11 pm Dictating Physician: MD CHINCHILLA JOE M Signed Date and Time: 09/14/2021 2:43 pm Signed by: MD CHINCHILLA JOE M Transcribed Date and Time: 09/14/2021 2:11 [facility] Bogdan Chinchilla MD - 09/14/2021 Patient Name: ADDIS TORRES Diagnostic Radiology ACCESSION EXAM DATE/TIME PROCEDURE ORDERING PROVIDER [id number] 09/14/2021 13:14 EST CR Abdomen AP UNASSIGNED, UNASSIGNED CPT code 40102 Reason For Exam (CR Abdomen AP) abdominal pain, ureteral stent, constipation Report Supine view of the abdomen, 09/14/2021. Reason for examination: Abdominal pain. Constipation. History of ureteral stent. COMPARISON: September 09, 2021. FINDINGS: A left ureteral stent is again noted and appears to be in satisfactory position. There may be small left renal calculi. Bowel gas pattern is nonspecific. There is a moderate amount of fecal material in the colon, consistent with history of constipation. There is excreted contrast in urinary bladder. IMPRESSION: Moderate amount fecal material. No definite acute process identified. Report Dictated on --- Final --- Dictated: 09/14/2021 2:11 pm Dictating Physician: MD CHINCHILLA JOE M Signed Date and Time: 09/14/2021 2:43 pm Signed by: MD CHINCHILLA JOE M Transcribed Date and Time: 09/14/2021 2:11 [facility]: Radiology Study observation (narrative) [facility] Work Phone: XR ABDOMEN (KUB) (SINGLE AP VIEW)Ordered By: Bogdan Chinchilla on 09-14-2021 [facility] Work Phone: CT Abdomen/Pelvis w/ Contras ton 09-13-2021 CT Abdomen/Pelvis w/ Contrast Normal [facility] Comp Metabolic Panelon 09-13 ALT [Catalytic activity/Vol] 13 U/L Normal 0-34 [facility] Comment on above: Result Comment: The ALT test is performed by an updated assay method.Please note that the reference intervals have beenchanged and are now sex specific. Performed By: #### C MP3, QWAL2, HEMDF ####[address] [place], [place] Calcium [Mass/Vol] 9.6 mg/dL Normal 8.4-10.4 [facility] Comment on above: Performed By: #### C MP3, QWAL2, HEMDF ####[address] [place], [place] Glucose [Mass/Vol] 92 mg/dL Normal 70-100 [facility] Comment on above: Performed By: #### C MP3, QWAL2, HEMDF ####[address] Urea nitrogen [Mass/Vol] 6 mg/dL Low 9-20 [facility] Comment on above: Performed By: #### C MP3, QWAL2, HEMDF ####[address] [place], [place] ALP [Catalytic activity/Vol] 56 U/L Normal 38-126 [facility] Comment on above: Performed By: #### C MP3, QWAL2, HEMDF ####[address] [place], [place] Anion gap [Moles/Vol] 13 mmol/L Normal 3-13 [facility] Comment on above: Performed By: #### C MP3, QWAL2, HEMDF ####[address] [place], [place] AST [Catalytic activity/Vol] 27 U/L Normal 15-46 [facility] Comment on above: Performed By: #### C MP3, QWAL2, HEMDF ####[address] [place], [place] Bilirubin [Mass/Vol] 0.7 mg/dL Normal 0.2-1.3 [facility] Comment on above: Performed By: #### C MP3, TAMMY2, HEMDF ####[facility] [place], [place] CO2 [Moles/Vol] 30 mmol/L Normal 22-30 [facility] Comment on above: Performed By: #### C MP3 QOLIVER2, HEMDF ####[address] [place], [place] Creatinine [Mass/Vol] 0.61 mg/dL Normal 0.52-1.25 [facility] Comment on above: Performed By: #### C MP3, QOLIVER2, HEMDF ####[address] [place], [place] eGFR OTHER > 90.0 Normal >60 [facility] Comment on above: Result Comment: KDIG O guidelines provide the following GFR categories:Stage GFR(ml/min/1.73 m2) TermsG1 >=90 Normal or highG2 60-89 Mildly decreased*G3a 45-59 Mildly to moderately skhzwioqxH2w 30-44 Moderately to severely decreasedG4 15-29 Severely decreasedG5 <15 Kidney failure*Relative to young adult level.In the absence of evidence of kidney damage, neither GFRcategory G1 nor G2 fulfill the criteria for CKD.The CKD-EPI equation is validated in individuals 18 yearsof age and older. Currently the best equation forestimating glomerular filtration rate (GFR) from serumcreatinine in children is the Bedside Boyer equation.It is less accurate in patients with extremes of musclemass, restriction of dietary protein, ingestion of creatine,extra-renal metabolism of creatinine, or treatment withmedications that affect renal tubular creatinine secretion. Performed By: #### C MP3, QOLIVER2, HEMDF ####[address] [place], [place] GFR/1.73 sq M.predicted among blacks MDRD (S/P/Bld) [Vol rate/Area] mL/min/{1.73_m2} Normal >60 [facility] Comment on above: Performed By: #### C MP3, QWAL2, HEMDF ####[address] [place], [place] Protein [Mass/Vol] 7.8 g/dL Normal 6.3-8.2 [facility] Comment on above: Performed By: #### C MP3, QWAL2, HEMDF ####[facility] [place], [place] Potassium [Moles/Vol] 2.7 mmol/L Low 3.5-5.1 [facility] Comment on above: Performed By: #### C MP3, QWAL2, HEMDF ####[address] [place], [place] Sodium [Moles/Vol] 136 mmol/L Normal 135-145 [facility] Comment on above: Performed By: #### C MP3, QWAL2, HEMDF ####[address] [place], [place] Albumin [Mass/Vol] 4.5 g/dL Normal 3.5-5.0 [facility] Comment on above: Performed By: #### C MP3, QWAL2, HEMDF ####[address] [place], [place] Chloride [Moles/Vol] 94 mmol/L Low 98-107 [facility] Comment on above: Performed By: #### C MP3, QWAL2, HEMDF ####[address] [place], [place] Complete Urinalysison 2021 Appearance (U) Turbid Abnormal Clear [facility] Comment on above: Result Comment: . Performed By: #### C UA2 ####[address] [place], [place] Bacteria Moderate Abnormal Negative [facility] Comment on above: Result Comment: . Performed By: #### C UA2 ####[address] [place], [place] Bilirubin,Urine Negative Normal Negative [facility] Comment on above: Result Comment: . Performed By: #### C UA2 ####[address] [place], [place] Cast, Hyaline 0 - 2 Abnormal Negative [facility] Comment on above: Result Comment: . Performed By: #### C UA2 ####[address] [place], [place] Color (U) Light-Yellow Normal Lt. Yellow [facility] Comment on above: Result Comment: . Performed By: #### C UA2 ####[address] [place], [place] Glucose Ql (U) Normal Normal Normal (<70) [facility] Comment on above: Result Comment: . Performed By: #### C UA2 ####[address] Ketone,Urine > 150 Abnormal Negative [facility] Comment on above: Result Comment: . Performed By: #### C UA2 ####[address] [place], [place] Leukocytes,Urine 500 Nesha/uL Abnormal Negative [facility] Comment on above: Result Comment: . Performed By: #### C UA2 ####[address] [place], [place] Mucous Threads Moderate Abnormal Negative [facility] Comment on above: Result Comment: . Performed By: #### C UA2 ####[address] Nitrites,Urine Negative Normal Negative [facility] Comment on above: Result Comment: . Performed By: #### C UA2 ####[address] [place] Occult Blood,Urine 0.5 mg/dL Abnormal Negative [facility] Comment on above: Result Comment: . Performed By: #### C UA2 ####[address] pH,Urine 6.5 Normal 5.0-8.0 [facility] Comment on above: Result Comment: . Performed By: #### C UA2 ####[address] Protein (U) [Mass/Vol] 100 mg/dL Abnormal Negative [facility] Comment on above: Result Comment: . Performed By: #### C UA2 ####[address] RBC, Urine 26 - 50 Abnormal 0-2 [facility] Comment on above: Result Comment: . Performed By: #### C UA2 ####[address] Specific [place],Urine 1.013 Normal 1.005 - 1.030 [facility] Comment on above: Result Comment: . Performed By: #### C UA2 ####[address] Squamous Epithelial 0 - 2 Normal 3-5 [facility] Comment on above: Result Comment: . Performed By: #### C UA2 ####[address] Urobilinogen,Urine Normal Normal Normal (0-1) [facility] Comment on above: Result Comment: . Performed By: #### C UA2 ####[address] WBC, Urine 11 - 25 Abnormal 0-5 [facility] Comment on above: Result Comment: . Performed By: #### C UA2 ####[address] Hemogram w/ Autodiffon 09-13 Abs Baso Cnt 0.0 10*3/uL Normal 0.0-0.2 [facility] Comment on above: Performed By: #### C MP3, QWAL2, HEMDF ####[address] [place], [place] Abs Neutrophile Cnt 4.4 10*3/uL Normal 1.8-7.0 [facility] Comment on above: Performed By: #### C MP3, QWAL2, HEMDF ####[address] [address] [place], [place] Basophils/100 WBC (Bld) 0.7 % Normal 0.0-2.0 [facility] Comment on above: Performed By: #### C MP3, QWAL2, HEMDF ####[address] [place], [place] Eosinophils (Bld) [#/Vol] 0.1 10*3/uL Normal 0.0-0.5 [facility] Comment on above: Performed By: #### C MP3, QWAL2, HEMDF ####[address] [place], [place] Eosinophils/100 WBC (Bld) 1.4 % Normal 1.0-6.0 [facility] Comment on above: Performed By: #### C MP3, QWAL2, HEMDF ####[address] [place], [place] Erythrocyte distribution width (RBC) [Ratio] 16.1 % High 11.5-14.5 [facility] Comment on above: Performed By: #### C MP3, QWAL2, HEMDF ####[address] [place], [place] Granulocytes/100 WBC (Bld) 66.9 % Normal 40.0-80.0 [facility] Comment on above: Performed By: #### C MP3, QWAL2, HEMDF ####[address] [place], [place] Hematocrit (Bld) [Volume fraction] 37.2 % Normal 35.0-47.0 [facility] Comment on above: Performed By: #### C MP3, QWAL2, HEMDF ####[address] [place], [place] Hemoglobin (Bld) [Mass/Vol] 12.1 g/dL Normal 11.7-16.0 [facility] Comment on above: Performed By: #### C MP3, QWAL2, HEMDF ####[address] [place], [place] Lymphocytes (Bld) [#/Vol] 1.4 10*3/uL Normal 1.0-4.3 [facility] Comment on above: Performed By: #### C MP3, QWAL2, HEMDF ####[address] [place], [place] Lymphocytes/100 WBC (Bld) 21.8 % Normal 20.0-40.0 [facility] Comment on above: Performed By: #### C MP3, QWAL2, HEMDF ####[address] [place], [place] MCH (RBC) [Entitic mass] 24.7 pg Low 26.0-34.0 [facility] Comment on above: Performed By: #### C MP3, QWAL2, HEMDF ####[address] [place], [place] MCHC 32.5 % Normal 32.0-36.0 [facility] Comment on above: Performed By: #### C MP3, QWAL2, HEMDF ####[address] [place], [place] MCV (RBC) [Entitic vol] 76.0 fL Low 79.0-98.0 [facility] Comment on above: Performed By: #### C MP3, QWAL2, HEMDF ####[address] [place], [place] Monocytes (Bld) [#/Vol] 0.6 10*3/uL Normal 0.0-0.8 [facility] Comment on above: Performed By: #### C MP3, QWAL2, HEMDF ####[address] [place], [place] Monocytes/100 WBC (Bld) 9.2 % Normal 2.0-10.0 [facility] Comment on above: Performed By: #### C MP3, QWAL2, HEMDF ####[address] [place], [place] Platelet mean volume (Bld) [Entitic vol] 7.8 fL Normal 7.4-10.4 [facility] Comment on above: Performed By: #### C MP3, QWAL2, HEMDF ####[facility] [id number] [place], [place] Platelets (Bld) [#/Vol] 268 10*3/uL Normal 140-440 [facility] Comment on above: Performed By: #### C MP3, QWAL2, HEMDF ####[facility] [id number] [place], [place] RBC (Bld) [#/Vol] 4.90 10*6/uL Normal 3.80-5.20 [facility] Comment on above: Performed By: #### C MP3, QWAL2, HEMDF ####[facility] [id number] [place], [place] WBC (Bld) [#/Vol] 6.6 10*3/uL Normal 3.6-10.7 [facility] Comment on above: Performed By: #### C MP3, QWAL2, HEMDF ####[facility] [id number] [place], [place] LABORATORYOrdered By: SYSTEM SYSTEM on 09-13-2021 Albumin [Mass/Vol] 4.1 G/dL Invalid Interpretation Code 3.2 - 4.8 G/dL ADM SS Albumin/Globulin [Mass ratio] 1.0 {ratio} Invalid Interpretation Code 0.9 - 1.6 ratio ADM SS ALP [Catalytic activity/Vol] 52 U/L Invalid Interpretation Code 38 - 126 U/L ADM SS ALT [Catalytic activity/Vol] 19 U/L Invalid Interpretation Code 10 - 49 U/L ADM SS AST [Catalytic activity/Vol] 23 U/L Invalid Interpretation Code 8 - 34 U/L ADM SS Comment on above: Result Comment: Spec imen moderately hemolyzed. Results may be falsely elevated. Base excess Calc (BldMV) [Moles/Vol] 13.0 mEq/L Invalid Interpretation Code 4.0 - 15.0 mEq/L ADM SS Basophils (Bld) [#/Vol] 0.00 103/mcL Invalid Interpretation Code 0.00 - 0.27 10^3/mcL AH Remisol SS Basophils/100 WBC (Bld) 0.4 % Invalid Interpretation Code 0.0 - 2.5 % AH Remisol SS Bilirubin [Mass/Vol] 0.6 mg/dL Invalid Interpretation Code 0.2 - 1.2 mg/dL AH ADM SS Calcium [Mass/Vol] 9.5 mg/dL Invalid Interpretation Code 8.4 - 10.1 mg/dL AH ADM SS Chloride [Moles/Vol] 92 mmol/L Invalid Interpretation Code 98 - 110 mEq/L AH ADM SS CO2 [Moles/Vol] 28 mmol/L Invalid Interpretation Code 22 - 32 mEq/L AH ADM SS Creatinine [Mass/Vol] 0.57 mg/dL Invalid Interpretation Code 0.50 - 1.20 mg/dL AH ADM SS Eosinophils (Bld) [#/Vol] 0.20 103/mcL Invalid Interpretation Code 0.00 - 0.65 10^3/mcL AH Remisol SS Eosinophils/100 WBC (Bld) 1.8 % Invalid Interpretation Code 0.0 - 6.0 % AH Remisol SS Erythrocyte distribution width (RBC) [Ratio] 16.1 % Invalid Interpretation Code 11.5 - 15.5 % AH Remisol SS GFR/1.73 sq M.predicted among blacks MDRD (S/P/Bld) [Vol rate/Area] ml/min/1.73sqm Invalid Interpretation Code AH ADM SS GFR/1.73 sq M.predicted among non-blacks MDRD (S/P/Bld) [Vol rate/Area] ml/min/1.73sqm Invalid Interpretation Code ADM SS Globulin (S) [Mass/Vol] 4.1 G/dL Invalid Interpretation Code 1.5 - 3.8 G/dL AH ADM SS Glucose [Mass/Vol] 93 mg/dL Invalid Interpretation Code 70 - 110 mg/dL AH ADM SS Hematocrit (Bld) [Volume fraction] 39.1 % Invalid Interpretation Code 34.0 - 46.0 % AH Remisol SS Hemoglobin (Bld) [Mass/Vol] 12.7 G/dL Invalid Interpretation Code 12.0 - 16.0 G/dL AH Remisol SS Lipase [Catalytic activity/Vol] 34 U/L Invalid Interpretation Code 12 - 53 U/L AH ADM SS Comment on above: Result Comment: Spec imen hemolyzed. Results may be affected. Lymphocytes (Bld) [#/Vol] 1.70 103/mcL Invalid Interpretation Code 0.90 - 4.32 10^3/mcL AH Remisol SS Lymphocytes/100 WBC (Bld) 18.8 % Invalid Interpretation Code 20.0 - 40.0 % AH Remisol SS MCH (RBC) [Entitic mass] 25.0 pg Invalid Interpretation Code 27.0 - 33.0 pg AH Remisol SS MCHC (RBC) [Mass/Vol] 32.5 G/dL Invalid Interpretation Code 32.0 - 36.0 G/dL AH Remisol SS MCV (RBC) [Entitic vol] 77.0 fL Invalid Interpretation Code 80.0 - 99.0 fL AH Remisol SS Monocytes (Bld) [#/Vol] 0.70 103/mcL Invalid Interpretation Code 0.09 - 1.40 10^3/mcL AH Remisol SS Monocytes/100 WBC (Bld) 8.1 % Invalid Interpretation Code 2.0 - 13.0 % AH Remisol SS Neutrophils (Bld) [#/Vol] 6.40 103/mcL Invalid Interpretation Code 2.25 - 8.10 10^3/mcL AH Remisol SS Neutrophils/100 WBC (Bld) 70.9 % Invalid Interpretation Code 50.0 - 75.0 % AH Remisol SS Platelet mean volume (Bld) [Entitic vol] 7.4 fL Invalid Interpretation Code 6.6 - 10.5 fL AH Remisol SS Platelets (Bld) [#/Vol] 338 103/mcL Invalid Interpretation Code 150 - 450 10^3/mcL AH Remisol SS Potassium [Moles/Vol] 3.6 mmol/L Invalid Interpretation Code 3.5 - 5.0 mEq/L AH ADM SS Comment on above: Result Comment: Spec imen hemolyzed and is inappropriate for potassium assay. Protein [Mass/Vol] 8.2 G/dL Invalid Interpretation Code 6.0 - 8.5 G/dL AH ADM SS RBC (Bld) [#/Vol] 5.08 106/mcL Invalid Interpretation Code 4.10 - 5.30 10^6/mcL AH Remisol SS Sodium [Moles/Vol] 133 mmol/L Invalid Interpretation Code 136 - 145 mEq/L AH ADM SS Urea nitrogen [Mass/Vol] 10.0 mg/dL Invalid Interpretation Code 8.0 - 22.0 mg/dL AH ADM SS Urea nitrogen/Creatinine [Mass ratio] 17.5 ratio Invalid Interpretation Code 10.0 - 22.0 ratio ADM SS WBC (Bld) [#/Vol] 9.00 103/mcL Invalid Interpretation Code 4.50 - 10.80 10^3/mcL AH Remisol SS hCG Qual P[place] 09-13-2021 hCG Qual Preg Negative Normal [facility] Comment on above: Result Comment: Refe rence Range: NEGATIVEEffective 11/18/2019, the reference interval for thequalitative test has been updated. This test detectshCG at concentrations of 10 mIU/L or greater in serum. Performed By: #### C MP3, QWAL2, HEMDF ####[facility] [place] [address] Absolute lymphocyte counton 09-12-2021 Lymphocytes Auto (Unsp spec) [#/Vol] 1.00 10*3/uL 0.83-4.51 [facility] Work Phone: Basophil percentageon 2021 Basophils/100 WBC (Bld) 0.7 % 0-1 [facility] Work Phone: Bilirubin [Mass/Vol] 0.40 mg/dL 0.20-1.00 [facility] Work Phone: Comment on above: For patients on eltr ombopag therapy, use of Dimension [place] TBIL is not recommended. Chloride [Moles/Vol] 103 mmol/L 98-107 [facility] Work Phone: Eosinophils/100 WBC (Bld) 2.0 % 0-5 [facility] Work Phone: Glucose [Mass/Vol] 98 mg/dL 74-106 [facility] Work Phone: Comment on above: Please note revised GLUCOSE reference range effective 2017. Neutrophils (Bld) [#/Vol] 4.0 10*3/uL 2.0-7.7 [facility] Work Phone: Neutrophils/100 WBC (Bld) 72.6 % 47-70 [facility] Work Phone: Potassium [Moles/Vol] 3.2 mmol/L 3.5-5.1 [facility] Work Phone: Protein [Mass/Vol] 7.4 g/dL 6.4-8.2 [facility] Work Phone: Sodium [Moles/Vol] 138 mmol/L 136-145 [facility] Work Phone: WBC (Bld) [#/Vol] 5.6 10*3/uL 4.4-11.0 [facility] Work Phone: Blood erythrocytes count (nu mber/volume)on 09-12-2021 RBC (Bld) [#/Vol] 4.81 10*6/uL 4.2-5.4 [facility] Work Phone: Blood hemoglobin measurement (mass/volume)on 09-12-2021 Hemoglobin (Bld) [Mass/Vol] 11.7 g/dL 12.0-15.0 [facility] Work Phone: Blood lymphocytes/100 leukoc yteson 09-12-2021 Lymphocytes/100 WBC (Bld) 18.0 % 19-41 [facility] Work Phone: Blood monocytes/100 leukocyt eson 09-12-2021 Monocytes/100 WBC (Bld) 6.5 % 0-10 [facility] Work Phone: Blood platelet mean volumeon 09-12-2021 Platelet mean volume (Bld) [Entitic vol] 9.7 fL 6.2-12.0 [facility] Work Phone: CBC W Auto Differential pane l (Bld)on 09-12-2021 CBC W/Diff, Automated [facility] Work Phone: [phone] Determination of erythrocyte mean corpuscular volume (MCV)on 09-12-2021 MCV (RBC) [Entitic vol] 78.4 fL 81-99 [facility] Work Phone: Direct bilirubinon 2 Bilirubin.direct [Mass/Vol] 0.08 mg/dL 0.00-0.30 [facility] Work Phone: ED Provider Noteon 2 ED Provider Note Normal [facility] Hematocrit Auto (Bld) [Volum e fraction]on 09-12-2021 Hematocrit (Bld) [Volume fraction] 37.7 % 37-47 [facility] Work Phone: Laboratory - Chemistry and C hemistry - challengeon 09-12-2021 ALP [Catalytic activity/Vol] 49 U/L 45-117 [facility] Work Phone: ALT [Catalytic activity/Vol] 16 U/L 13-56 [facility] Work Phone: CO2 [Moles/Vol] 25.0 mmol/L 21.0-32.0 [facility] Work Phone: Globulin (S) [Mass/Vol] 4.0 g/dL 2.2-4.2 [facility] Work Phone: Lipase [Catalytic activity/Vol] 96 U/L 73-393 [facility] Work Phone: Urea nitrogen/Creatinine [Mass ratio] 12.3 mg/mg 10-20 [facility] Work Phone: Laboratory - Hematology and Cell countson 09-12-2021 Erythrocyte distribution width (RBC) [Entitic vol] 42.2 fL 35.1-43.9 [facility] Work Phone: Erythrocyte distribution width (RBC) [Ratio] 15.0 % 11.6-14.6 [facility] Work Phone: Immature granulocytes/100 WBC (Bld) 0.200 % 0.0-0.9 [facility] Work Phone: Comment on above: IG% - Immature Granu locytes (promyelocytes, myelocytes and metamyelocytes) > 1% indicates that a LEFT SHIFT is Present. MCH (RBC) [Entitic mass] 24.3 pg 27.0-32.0 [facility] Work Phone: Nucleated RBC/100 WBC (Bld) [Ratio] 0 % 0-5 [facility] Work Phone: MCHC Auto (RBC) [Mass/Vol]on 09-12-2021 MCHC (RBC) [Mass/Vol] 31.0 g/dL 32-36 [facility] Work Phone: No Panel Informationon 09-12 Estimated Creatinine Clearance Calc 163.16 ml/min [facility] Work Phone: Estimated GFR (MDRD) Amer 172 mL/min >60 [facility] Work Phone: Comment on above: GFR Calc Estimated GFR (MDRD) Non-Af Amer 142 mL/min >60 [facility] Work Phone: Comment on above: Non- GFR Calc Platelets bldon 09-12-2021 Platelets (Bld) [#/Vol] 269 10*3/uL 150-450 [facility] Work Phone: Serum or plasma albumin justice urement (mass/volume)on 09-12-2021 Albumin [Mass/Vol] 3.4 g/dL 3.2-5.0 [facility] Work Phone: Serum or plasma albumin/glob ulin mass ratioon 09-12-2021 Albumin/Globulin [Mass ratio] 0.8 {ratio} 0.9-2.4 [facility] Work Phone: Serum or plasma calcium justice urement (mass/volume)on 09-12-2021 Calcium [Mass/Vol] 9.0 mg/dL 8.5-10.1 [facility] Work Phone: Serum or plasma creatinine m easurement (mass/volume)on 09-12-2021 Creatinine [Mass/Vol] 0.57 mg/dL 0.55-1.02 [facility] Work Phone: Comment on above: The validity of the calculated GFR & GFRAA in patients over 70 years has not been determined. Clinical correlation is essential. Serum or plasma urea nitroge n measurement (mass/volume)on 09-12-2021 Urea nitrogen [Mass/Vol] 7 mg/dL 7-18 [facility] Work Phone: Thin prep Papanicolaou smear with manual screeningon 09-12-2021 Thin prep Papanicolaou smear with manual screening 31 U/L 15-37 [facility] Work Phone: Thin prep Papanicolaou smear with manual screening 10 5-15 [facility] Work Phone: Basic Metabolic Panelon Anion gap [Moles/Vol] 13 mmol/L Normal 3-13 [facility] [facility] Comment on above: Performed By: #### B ZA3Peter HEMOG, MG3 ####[facility] [id number] [place] [address] Calcium [Mass/Vol] 8.7 mg/dL Normal 8.4-10.4 [facility] Comment on above: Performed By: #### Rubén MENDENHALL3Peter HEMOG, MG3 ####[facility] [place] [address] CO2 [Moles/Vol] 20 mmol/L Low 22-30 [facility] Comment on above: Performed By: #### Rubén MP3Peter HEMOG, MG3 ####[facility] [place] [address] Glucose [Mass/Vol] 86 mg/dL Normal 70-100 [facility] Comment on above: Performed By: #### Rubén MP3Peter HEMOG, MG3 ####[facility] [place] [address] Urea nitrogen [Mass/Vol] 6 mg/dL Low 9-20 [facility] Comment on above: Performed By: #### Rubén MP3M HEMOG, MG3 ####[facility] [place] [address] Creatinine [Mass/Vol] 0.55 mg/dL Normal 0.52-1.25 [facility] Comment on above: Performed By: #### B MP3M HEMOG, MG3 ####[facility] [place], [place] eGFR OTHER > 90.0 Normal >60 [facility] Comment on above: Result Comment: KDIG O guidelines provide the following GFR categories:Stage GFR(ml/min/1.73 m2) TermsG1 >=90 Normal or highG2 60-89 Mildly decreased*G3a 45-59 Mildly to moderately immqoxqdvP4d 30-44 Moderately to severely decreasedG4 15-29 Severely decreasedG5 <15 Kidney failure*Relative to young adult level.In the absence of evidence of kidney damage, neither GFRcategory G1 nor G2 fulfill the criteria for CKD.The CKD-EPI equation is validated in individuals 18 yearsof age and older. Currently the best equation forestimating glomerular filtration rate (GFR) from serumcreatinine in children is the Bedside Boyer equation.It is less accurate in patients with extremes of musclemass, restriction of dietary protein, ingestion of creatine,extra-renal metabolism of creatinine, or treatment withmedications that affect renal tubular creatinine secretion. Performed By: #### B ZA3FRANCHESKA GreenOG, MG3 ####[address] [place], [place] GFR/1.73 sq M.predicted among blacks MDRD (S/P/Bld) [Vol rate/Area] mL/min/{1.73_m2} Normal >60 [facility] Comment on above: Performed By: #### Rubén MENDENHALL3FRANCHESKA GreenOG, MG3 ####[address] [place], [place] Chloride [Moles/Vol] 104 mmol/L Normal 98-107 [facility] Comment on above: Performed By: #### B MP3Peter HEMOG, MG3 ####[address] [place], [place] Potassium [Moles/Vol] 3.0 mmol/L Low 3.5-5.1 [facility] Comment on above: Performed By: #### B MP3M HEMOG, MG3 ####[address] [place], [place] Sodium [Moles/Vol] 138 mmol/L Normal 135-145 [facility] Comment on above: Performed By: #### B MP3M, HEMOG, MG3 ####[facility] [address] [place] [address] Basic Metabolic Panel w/ Ref janie to MGon 09-11-2021 Anion gap [Moles/Vol] 13 mmol/L 3 - 13 mmol/L [facility] Calcium [Mass/Vol] 8.7 mg/dL 8.4 - 10. 4 mg/dL [facility] Chloride [Moles/Vol] 104 mmol/L 98 - 10 7 mmol/L [facility] CO2 [Moles/Vol] 20 mmol/L Low 22 - 30 mmol/L [facility] Creatinine [Mass/Vol] 0.55 mg/dL 0.52 - 1.25 mg/dL [facility] EGFR IF NonAfrican Djiboutian >90.0 >60 mL/min [facility] Comment on above: KDIGO guidelines pro vide the following GFR categories: Stage GFR(ml/min/1.73 m2) Terms G1 >=90 Normal or high G2 60-89 Mildly decreased* G3a 45-59 Mildly to moderately decreased G3b 30-44 Moderately to severely decreased G4 15-29 Severely decreased G5 <15 Kidney failure *Relative to young adult level. In the absence of evidence of kidney damage, neither GFR category G1 nor G2 fulfill the criteria for CKD. The CKD-EPI equation is validated in individuals 18 years of age and older. Currently the best equation for estimating glomerular filtration rate (GFR) from serum creatinine in children is the Bedside Boyer equation. It is less accurate in patients with extremes of muscle mass, restriction of dietary protein, ingestion of creatine, extra-renal metabolism of creatinine, or treatment with medications that affect renal tubular creatinine secretion. GFR/1.73 sq M.predicted among blacks MDRD (S/P/Bld) [Vol rate/Area] mL/min/{1.73_m2} >60 mL/min [facility] Glucose [Mass/Vol] 86 mg/dL 70 - 100 mg/dL [facility] Interpretation and review of laboratory results Abnormal [facility] Potassium [Moles/Vol] 3.0 mmol/L Low 3.5 - 5.1 mmol/L [facility] Sodium [Moles/Vol] 138 mmol/L 135 - 145 mmol/L [facility] Urea nitrogen (BldV) [Mass/Vol] 6 mg/dL Low 9 - 20 mg/dL [facility] Test Performed by [facility], [address] [place] [id number] [place] [address] LAB [facility] CBCon 09-11-2021 Hematocrit (Bld) [Volume fraction] 31.0 % Low 35.0 - 47.0 % [facility] Hemoglobin.gastrointesti nal spec 1 Ql (Stl) 9.8 g/dL Low 11.7 - 16.0 g/dL [facility] Interpretation and review of laboratory results Abnormal [facility] MCH (RBC) [Entitic mass] 24.2 pg Low 26. 0 - 34.0 pg [facility] MCHC (RBC) [Mass/Vol] 31.6 % Low 32.0 - 36.0 % [facility] MCV (RBC) [Entitic vol] 76.6 fL Low 79.0 - 98.0 fL [facility] Platelet distribution width (Bld) [Ratio] 16.0 % High 11.5 - 14.5 % [facility] Platelet mean volume (Bld) [Entitic vol] 7.6 fL 7.4 - 10.4 fL [facility] Platelets (Bld) [#/Vol] 202 10*3/uL 140 - 440 10*3/uL [facility] RBC (Bld) [#/Vol] 4.05 10*6/uL 3.80 - 5.20 10*6/uL [facility] WBC (Bld) [#/Vol] 6.4 10*3/uL 3.6 - 10.7 10*3/uL [facility] Test Performed by [facility], [address] [place] [id number] [place] [address] LAB [facility] CREATININE, BODY FLUIDon Creatinine [Mass/Vol] 0.61 mg/dL No Range [facility] Fluid Type Drainage(BENI) [facility] Test Performed by [facility], [address] [place] [id number] [place] [address] LAB [facility] Creatinine, Body Fluidon Fluid Type Drainage(BENI) Normal [facility] Comment on above: Performed By: #### C RMS3 ####[address] [place] [address] Creatinine [Mass/Vol] 0.61 mg/dL Normal No Range [facility] Comment on above: Performed By: #### C RMS3 ####[address] [place], [place] Hemogramon 09-11-2021 Erythrocyte distribution width (RBC) [Ratio] 16.0 % High 11.5-14.5 [facility] Comment on above: Performed By: #### B MP3M HEMOG, MG3 ####[address] Hematocrit (Bld) [Volume fraction] 31.0 % Low 35.0-47.0 [facility] Comment on above: Performed By: #### B MP3M HEMOG, MG3 ####[address] [place], [place] Hemoglobin (Bld) [Mass/Vol] 9.8 g/dL Low 11.7-16.0 [facility] Comment on above: Performed By: #### B MP3M HEMOG, MG3 ####[address] MCH (RBC) [Entitic mass] 24.2 pg Low 26.0-34.0 [facility] Comment on above: Performed By: #### B MP3M, HEMOG, MG3 ####[address] MCHC 31.6 % Low 32.0-36.0 [facility] Comment on above: Performed By: #### B MP3M, HEMOG, MG3 ####[address] MCV (RBC) [Entitic vol] 76.6 fL Low 79.0-98.0 [facility] Comment on above: Performed By: #### B MP3M, HEMOG, MG3 ####[address] Platelet mean volume (Bld) [Entitic vol] 7.6 fL Normal 7.4-10.4 [facility] Comment on above: Performed By: #### B MP3M, HEMOG, MG3 ####[address] [place], [place] Platelets (Bld) [#/Vol] 202 10*3/uL Normal 140-440 [facility] Comment on above: Performed By: #### B MP3M, HEMOG, MG3 ####[address] [place], [place] RBC (Bld) [#/Vol] 4.05 10*6/uL Normal 3.80-5.20 [facility] Comment on above: Performed By: #### B MP3M, HEMOG, MG3 ####[address] [place], [place] WBC (Bld) [#/Vol] 6.4 10*3/uL Normal 3.6-10.7 [facility] Comment on above: Performed By: #### Rubén MP3Peter, HEMOG, MG3 ####[address] [place], [place] Magnesiumon 09-11-2021 Magnesium [Mass/Vol] 1.9 mg/dL Normal 1.6-2.3 [facility] Comment on above: Performed By: #### Rubén MP3Peter, HEMOG, MG3 ####[address] [place], [place] Magnesium [Mass/Vol] 1.9 mg/dL 1.6 - 2 .3 mg/dL [facility] Test Performed by [facility], [address] [place] [address] [facility] Basic Metabolic Panelon Anion gap [Moles/Vol] 16 mmol/L High 3-13 [facility] Comment on above: Performed By: #### H NYLA BMP3M ####[address] [place], [place] Calcium [Mass/Vol] 10.0 mg/dL Normal 8.4-10.4 [facility] Comment on above: Performed By: #### H EMOG, BMP3M ####[facility] [place], [place] CO2 [Moles/Vol] 18 mmol/L Low 22-30 [facility] Comment on above: Performed By: #### H NYLA BMP3M ####[facility] [place], [place] Glucose [Mass/Vol] 125 mg/dL High 70-100 [facility] Comment on above: Performed By: #### H NYLA BMP3M ####[address] [place], [place] Urea nitrogen [Mass/Vol] 6 mg/dL Low 9-20 [facility] Comment on above: Performed By: #### GURMEET MALAVE3M ####[address] [place], [place] Creatinine [Mass/Vol] 0.53 mg/dL Normal 0.52-1.25 [facility] Comment on above: Performed By: #### Ethel REDMON[place] BMP3M ####[address] [place], [place] eGFR OTHER > 90.0 Normal >60 [facility] Comment on above: Result Comment: KDIG O guidelines provide the following GFR categories:Stage GFR(ml/min/1.73 m2) TermsG1 >=90 Normal or highG2 60-89 Mildly decreased*G3a 45-59 Mildly to moderately [id number] 30-44 Moderately to severely decreasedG4 15-29 Severely decreasedG5 <15 Kidney failure*Relative to young adult level.In the absence of evidence of kidney damage, neither GFRcategory G1 nor G2 fulfill the criteria for CKD.The CKD-EPI equation is validated in individuals 18 yearsof age and older. Currently the best equation forestimating glomerular filtration rate (GFR) from serumcreatinine in children is the Bedside Boyer equation.It is less accurate in patients with extremes of musclemass, restriction of dietary protein, ingestion of creatine,extra-renal metabolism of creatinine, or treatment withmedications that affect renal tubular creatinine secretion. Performed By: #### Ethel REDMOND BMP3M ####[address] [place], [place] GFR/1.73 sq M.predicted among blacks MDRD (S/P/Bld) [Vol rate/Area] mL/min/{1.73_m2} Normal >60 [facility] Comment on above: Performed By: #### H NYLA BMP3M ####[facility] [place], [place] Chloride [Moles/Vol] 105 mmol/L Normal 98-107 [facility] Comment on above: Performed By: #### H NYLA BMP3M ####[facility] [place], [place] Potassium [Moles/Vol] 3.9 mmol/L Normal 3.5-5.1 [facility] Comment on above: Performed By: #### Ethel REDMOND BMP3M ####[address] [place], [place] Sodium [Moles/Vol] 139 mmol/L Normal 135-145 [facility] Comment on above: Performed By: #### Ethel REDMOND BMP3M ####[facility] [place], [place] Basic Metabolic Panel w/ Ref janie to MGon 09-10-2021 Anion gap [Moles/Vol] 16 mmol/L High 3 - 13 mmol/L [facility] Calcium [Mass/Vol] 10.0 mg/dL 8.4 - 10. 4 mg/dL [facility] Chloride [Moles/Vol] 105 mmol/L 98 - 10 7 mmol/L [facility] CO2 [Moles/Vol] 18 mmol/L Low 22 - 30 mmol/L [facility] Creatinine [Mass/Vol] 0.53 mg/dL 0.52 - 1.25 mg/dL [facility] EGFR IF NonAfrican Djiboutian >90.0 >60 mL/min [facility] Comment on above: KDIGO guidelines pro vide the following GFR categories: Stage GFR(ml/min/1.73 m2) Terms G1 >=90 Normal or high G2 60-89 Mildly decreased* G3a 45-59 Mildly to moderately decreased G3b 30-44 Moderately to severely decreased G4 15-29 Severely decreased G5 <15 Kidney failure *Relative to young adult level. In the absence of evidence of kidney damage, neither GFR category G1 nor G2 fulfill the criteria for CKD. The CKD-EPI equation is validated in individuals 18 years of age and older. Currently the best equation for estimating glomerular filtration rate (GFR) from serum creatinine in children is the Bedside Boyer equation. It is less accurate in patients with extremes of muscle mass, restriction of dietary protein, ingestion of creatine, extra-renal metabolism of creatinine, or treatment with medications that affect renal tubular creatinine secretion. GFR/1.73 sq M.predicted among blacks MDRD (S/P/Bld) [Vol rate/Area] mL/min/{1.73_m2} >60 mL/min [facility] Glucose [Mass/Vol] 125 mg/dL High 70 - 100 mg/dL [facility] Interpretation and review of laboratory results Abnormal [facility] Potassium [Moles/Vol] 3.9 mmol/L 3.5 - 5.1 mmol/L [facility] Sodium [Moles/Vol] 139 mmol/L 135 - 145 mmol/L [facility] Urea nitrogen (BldV) [Mass/Vol] 6 mg/dL Low 9 - 20 mg/dL [facility] Test Performed by [facility], [address] [place] [id number] [place] [address] LAB [facility] CBCon 09-10-2021 Hematocrit (Bld) [Volume fraction] 40.0 % 35.0 - 47.0 % [facility] Hemoglobin.gastrointesti nal spec 1 Ql (Stl) 12.4 g/dL 11.7 - 16.0 g/dL [facility] Interpretation and review of laboratory results Abnormal [facility] MCH (RBC) [Entitic mass] 24.3 pg Low 26. 0 - 34.0 pg [facility] MCHC (RBC) [Mass/Vol] 30.9 % Low 32.0 - 36.0 % [facility] MCV (RBC) [Entitic vol] 78.8 fL Low 79.0 - 98.0 fL [facility] Platelet distribution width (Bld) [Ratio] 15.9 % High 11.5 - 14.5 % [facility] Platelet mean volume (Bld) [Entitic vol] 7.3 fL Low 7.4 - 10.4 fL [facility] Platelets (Bld) [#/Vol] 361 10*3/uL 140 - 440 10*3/uL [facility] RBC (Bld) [#/Vol] 5.08 10*6/uL 3.80 - 5.20 10*6/uL [facility] WBC (Bld) [#/Vol] 9.5 10*3/uL 3.6 - 10.7 10*3/uL [facility] Test Performed by [facility], [address], [place] [address] [facility] Hemogramon 09-10-2021 Erythrocyte distribution width (RBC) [Ratio] 15.9 % High 11.5-14.5 [facility] Comment on above: Performed By: #### H NYLA BMP3M ####[address] [place], [place] Hematocrit (Bld) [Volume fraction] 40.0 % Normal 35.0-47.0 [facility] Comment on above: Performed By: #### H NYLA BMP3M ####[address] [place], [place] Hemoglobin (Bld) [Mass/Vol] 12.4 g/dL Normal 11.7-16.0 [facility] Comment on above: Performed By: #### H NYLA BMP3M ####[address] [place] MCH (RBC) [Entitic mass] 24.3 pg Low 26.0-34.0 [facility] Comment on above: Performed By: #### H NYLA BMP3M ####[address] [place] MCHC 30.9 % Low 32.0-36.0 [facility] Comment on above: Performed By: #### H NYLA BMP3M ####[address] [place] MCV (RBC) [Entitic vol] 78.8 fL Low 79.0-98.0 [facility] Comment on above: Performed By: #### H EMOYo BMP3M ####[address] [place], [place] Platelet mean volume (Bld) [Entitic vol] 7.3 fL Low 7.4-10.4 [facility] Comment on above: Performed By: #### H NYLA BMP3M ####[address] [place] [address] Platelets (Bld) [#/Vol] 361 10*3/uL Normal 140-440 [facility] Comment on above: Performed By: #### H NYLA BMP3M ####[address] [place] [address] RBC (Bld) [#/Vol] 5.08 10*6/uL Normal 3.80-5.20 [facility] Comment on above: Performed By: #### H NYLA BMP3M ####[address] [place] [address] WBC (Bld) [#/Vol] 9.5 10*3/uL Normal 3.6-10.7 [facility] Comment on above: Performed By: #### H NYLA BMP3M ####[address] [place] [address] CR Abdomen APon 09-09-2021 CR Abdomen AP Normal [facility] No Panel Informationon 09-09 Radiology Study observation (narrative) [facility] Work Phone: OPERATIVE REPORTon 2 [facility] Op Noteon 09-09-2021 Op Note Normal [facility] KATINA STUDIO 3on 2 [facility] Work Phone: Surgical Pathologyon 022 Surgical Pathology Normal [facility] XR ABDOMEN (KUB) (SINGLE AP VIEW)on 09-09-2021 Patient Name: ADDIS TORRES Diagnostic Radiology ACCESSION EXAM DATE/TIME PROCEDURE ORDERING PROVIDER [id number] 09/09/2021 17:06 EST CR Abdomen AP MD MAGNUS, NELLIE MONTESINOS CPT code 77103 Reason For Exam (CR Abdomen AP) Portable, Patient in PACU, s/p left ureteroureterostomy, check ureteral stent placement Report CLINICAL INDICATION: Status post left ureterostomy with stent placement. TECHNIQUE: Single view of the abdomen utilizing portable technique COMPARISON: 09/04/2021 FINDINGS/IMPRESSION: Portions of the left hemiabdomen and pelvis are not fully included in the [id number]-[id number]. Left nephroureteral stent is similar in position. Ocasio catheter is in place. There is likely some air within the lumen of the urinary bladder. Mild amount retained colonic stool proximally. No dilated loops of bowel. Osseous structures appear unchanged Report Dictated on --- Final --- Dictated: 09/09/2021 4:45 pm Dictating Physician: MD BHARDWAJ VLADIMIR Signed Date and Time: 09/09/2021 4:46 pm Signed by: MD BHARDWAJ VLADIMIR Transcribed Date and Time: 09/09/2021 4:45 [facility] Result, Unknown Prov ider - 09/09/2021 Patient Name: ADDIS TORRES Diagnostic Radiology ACCESSION EXAM DATE/TIME PROCEDURE ORDERING PROVIDER [id number] 09/09/2021 17:06 EST CR Abdomen AP MD MAGNUS, NELLIE MONTESINOS CPT code 30507 Reason For Exam (CR Abdomen AP) Portable, Patient in PACU, s/p left ureteroureterostomy, check ureteral stent placement Report CLINICAL INDICATION: Status post left ureterostomy with stent placement. TECHNIQUE: Single view of the abdomen utilizing portable technique COMPARISON: 09/04/2021 FINDINGS/IMPRESSION: Portions of the left hemiabdomen and pelvis are not fully included in the [id number]-[id number]. Left nephroureteral stent is similar in position. Ocasio catheter is in place. There is likely some air within the lumen of the urinary bladder. Mild amount retained colonic stool proximally. No dilated loops of bowel. Osseous structures appear unchanged Report Dictated on --- Final --- Dictated: 09/09/2021 4:45 pm Dictating Physician: MD BHARDWAJ VLADIMIR Signed Date and Time: 09/09/2021 4:46 pm Signed by: MD BHARDWAJ VLADIMIR Transcribed Date and Time: 09/09/2021 4:45 [facility] Work Phone: XR ABDOMEN (KUB) (SINGLE AP VIEW)Ordered By: Unknown Result on 09-09-2021 [facility] Absolute lymphocyte counton 09-08-2021 Lymphocytes Auto (Unsp spec) [#/Vol] 0.51 10*3/uL 0.83-4.51 [facility] Work Phone: Basophil percentageon 2021 Basophil percentage 5-10 SEEN /hpf [facility] Work Phone: Basophils/100 WBC (Bld) 0.7 % 0-1 [facility] Work Phone: Bilirubin [Mass/Vol] 0.60 mg/dL 0.20-1.00 [facility] Work Phone: Comment on above: For patients on eltr ombopag therapy, use of Dimension [place] TBIL is not recommended. Chloride [Moles/Vol] 104 mmol/L 98-107 [facility] Work Phone: Eosinophils/100 WBC (Bld) 0.1 % 0-5 [facility] Work Phone: Glucose [Mass/Vol] 109 mg/dL 74-106 [facility] Work Phone: Comment on above: Fasting Glucose resu lt from 100 to 125 mg/dL suggests IMPAIRED HOMEOSTASIS per A.D.A. criteria.Please note revised GLUCOSE reference range effective 2017. Neutrophils (Bld) [#/Vol] 6.6 10*3/uL 2.0-7.7 [facility] Work Phone: Neutrophils/100 WBC (Bld) 89.3 % 47-70 [facility] Work Phone: Potassium [Moles/Vol] 3.5 mmol/L 3.5-5.1 [facility] Work Phone: Protein [Mass/Vol] 9.0 g/dL 6.4-8.2 [facility] Work Phone: Sodium [Moles/Vol] 137 mmol/L 136-145 [facility] Work Phone: WBC (Bld) [#/Vol] 7.4 10*3/uL 4.4-11.0 [facility] Work Phone: Bilirubin Test strip Ql (U)o n 09-08-2021 Bilirubin Ql (U) Negative Negative [facility] Work Phone: Blood erythrocytes count (nu mber/volume)on 09-08-2021 RBC (Bld) [#/Vol] 5.31 10*6/uL 4.2-5.4 [facility] Work Phone: Blood hemoglobin measurement (mass/volume)on 09-08-2021 Hemoglobin (Bld) [Mass/Vol] 12.9 g/dL 12.0-15.0 [facility] Work Phone: Blood lymphocytes/100 leukoc yteson 09-08-2021 Lymphocytes/100 WBC (Bld) 6.9 % 19-41 [facility] Work Phone: Blood monocytes/100 leukocyt eson 09-08-2021 Monocytes/100 WBC (Bld) 2.7 % 0-10 [facility] Work Phone: Blood platelet mean volumeon 09-08-2021 Platelet mean volume (Bld) [Entitic vol] 9.5 fL 6.2-12.0 [facility] Work Phone: Determination of erythrocyte mean corpuscular volume (MCV)on 09-08-2021 MCV (RBC) [Entitic vol] 79.7 fL 81-99 [facility] Work Phone: Direct bilirubinon 2 Bilirubin.direct [Mass/Vol] 0.08 mg/dL 0.00-0.30 [facility] Work Phone: Hematocrit Auto (Bld) [Volum e fraction]on 09-08-2021 Hematocrit (Bld) [Volume fraction] 42.3 % 37-47 [facility] Work Phone: Hyaline casts LM.LPF (Urine sed) [#/Area]on 09-08-2021 Hyaline casts (Urine sed) [#/Area] 5 /[LPF] [facility] Work Phone: Ketones Test strip Ql (U)on 09-08-2021 Ketones Ql (U) 150 mg/dl Negative [facility] Work Phone: Comment on above: CRITICAL VALUE *HCRI TICAL VALUE VERIFIED. CALLED TO [facility],RN09/08/21 0713 Shereen Castillo.RESULTS READ BACK BY SAME . Laboratory - Chemistry and C hemistry - challengeon 09-08-2021 ALP [Catalytic activity/Vol] 62 U/L 45-117 [facility] Work Phone: ALT [Catalytic activity/Vol] 21 U/L 13-56 [facility] Work Phone: CO2 [Moles/Vol] 19.0 mmol/L 21.0-32.0 [facility] Work Phone: Globulin (S) [Mass/Vol] 4.4 g/dL 2.2-4.2 [facility] Work Phone: Urea nitrogen/Creatinine [Mass ratio] 3.6 mg/mg 10-20 [facility] Work Phone: Laboratory - Hematology and Cell countson 09-08-2021 Erythrocyte distribution width (RBC) [Entitic vol] 42.2 fL 35.1-43.9 [facility] Work Phone: Erythrocyte distribution width (RBC) [Ratio] 14.7 % 11.6-14.6 [facility] Work Phone: Immature granulocytes/100 WBC (Bld) 0.300 % 0.0-0.9 [facility] Work Phone: Comment on above: IG% - Immature Granu locytes (promyelocytes, myelocytes and metamyelocytes) > 1% indicates that a LEFT SHIFT is Present. MCH (RBC) [Entitic mass] 24.3 pg 27.0-32.0 [facility] Work Phone: Nucleated RBC/100 WBC (Bld) [Ratio] 0 % 0-5 [facility] Work Phone: MCHC Auto (RBC) [Mass/Vol]on 09-08-2021 MCHC (RBC) [Mass/Vol] 30.5 g/dL 32-36 [facility] Work Phone: Mucus LM Ql (Urine sed)on Mucus Ql (Urine sed) 0 SEEN /hpf [facility] Work Phone: Nitrite Test strip Ql (U)on 09-08-2021 Nitrite Ql (U) Negative Negative [facility] Work Phone: No Panel Informationon 09-08 Estimated Creatinine Clearance Calc 110.72 ml/min [facility] Work Phone: Estimated GFR (MDRD) Amer 109 mL/min >60 [facility] Work Phone: Comment on above: GFR Calc Estimated GFR (MDRD) Non-Af Amer 90 mL/min >60 [facility] Work Phone: Comment on above: Non- GFR Calc Platelets bldon 09-08-2021 Platelets (Bld) [#/Vol] 350 10*3/uL 150-450 [facility] Work Phone: Protein Test strip Ql (U)on 09-08-2021 Protein Ql (U) 100 mg/dl Negative [facility] Work Phone: Serum or plasma albumin justice urement (mass/volume)on 09-08-2021 Albumin [Mass/Vol] 4.6 g/dL 3.2-5.0 [facility] Work Phone: Serum or plasma calcium justice urement (mass/volume)on 09-08-2021 Calcium [Mass/Vol] 9.4 mg/dL 8.5-10.1 [facility] Work Phone: Serum or plasma creatinine m easurement (mass/volume)on 09-08-2021 Creatinine [Mass/Vol] 0.84 mg/dL 0.55-1.02 [facility] Work Phone: Comment on above: The validity of the calculated GFR & GFRAA in patients over 70 years has not been determined. Clinical correlation is essential. Serum or plasma urea nitroge n measurement (mass/volume)on 09-08-2021 Urea nitrogen [Mass/Vol] 3 mg/dL 7-18 [facility] Work Phone: Squamous epithelial cells de tection in urine sediment by light microscopyon 09-08-2021 Epithelial cells.squamous LM Ql (Urine sed) 0-5 SEEN /hpf [facility] Work Phone: Thin prep Papanicolaou smear with manual screeningon 09-08-2021 Thin prep Papanicolaou smear with manual screening 14 U/L 15-37 [facility] Work Phone: Thin prep Papanicolaou smear with manual screening 14 5-15 [facility] Work Phone: Urine blood detectionon - RBC Ql (U) 250 /ul Negative [facility] Work Phone: RBC Ql (U) 50-100 SEEN /hpf [facility] Work Phone: Urine clarityon 09-08-2021 Clarity (U) Clear Clear [facility] Work Phone: Urine color determinationon 09-08-2021 Color (U) Yellow Yellow [facility] Work Phone: Urine glucose detectionon Glucose Ql (U) Normal mg/dl Normal [facility] Work Phone: Urine leukocyte esterase det ection by dipstickon 09-08-2021 Leukocyte esterase Test strip Ql (U) 500 /ul Negative [facility] Work Phone: Urine pHon 09-08-2021 pH (U) 6.0 [pH] [facility] Work Phone: Urine sediment bacteria coun t by microscopy (number/high power field)on 09-08-2021 Bacteria LM.HPF (Urine sed) [#/Area] 1 /[HPF] None Seen [facility] Work Phone: Urine specific gravity measu rementon 09-08-2021 Specific gravity (U) [Rel density] 1.025 [facility] Work Phone: Urobilinogen Auto test strip Ql (U)on 09-08-2021 Urobilinogen Ql (U) Normal mg/dl Normal [facility] Work Phone: Basic Metabolic Panelon Calcium [Mass/Vol] 8.7 mg/dL Normal 8.4-10.4 [facility] Comment on above: Performed By: #### B MP3, MG3, PHOS3, HEMDF ####[facility] [address] [place] [address] Glucose [Mass/Vol] 95 mg/dL Normal 70-100 [facility] Comment on above: Performed By: #### B MP3, MG3, PHOS3, HEMDF ####[facility] [address] [place] [address] Urea nitrogen [Mass/Vol] 6 mg/dL Low 9-20 [facility] Comment on above: Performed By: #### B MP3, MG3, PHOS3, HEMDF ####[facility] [address] [place] [address] Anion gap [Moles/Vol] 12 mmol/L Normal 3-13 [facility] Comment on above: Performed By: #### B MP3, MG3, PHOS3, HEMDF ####[facility] [address] [place] [address] CO2 [Moles/Vol] 20 mmol/L Low 22-30 [facility] Comment on above: Performed By: #### B MP3, MG3, PHOS3, HEMDF ####[facility] [address] [place] [address] Creatinine [Mass/Vol] 0.53 mg/dL Normal 0.52-1.25 [facility] Comment on above: Performed By: #### B MP3, MG3, PHOS3, HEMDF ####[facility] [address] [place] eGFR OTHER > 90.0 Normal >60 [facility] Comment on above: Result Comment: KDIG O guidelines provide the following GFR categories:Stage GFR(ml/min/1.73 m2) TermsG1 >=90 Normal or highG2 60-89 Mildly decreased*G3a 45-59 Mildly to moderately [id number] 30-44 Moderately to severely decreasedG4 15-29 Severely decreasedG5 <15 Kidney failure*Relative to young adult level.In the absence of evidence of kidney damage, neither GFRcategory G1 nor G2 fulfill the criteria for CKD.The CKD-EPI equation is validated in individuals 18 yearsof age and older. Currently the best equation forestimating glomerular filtration rate (GFR) from serumcreatinine in children is the Bedside Boyer equation.It is less accurate in patients with extremes of musclemass, restriction of dietary protein, ingestion of creatine,extra-renal metabolism of creatinine, or treatment withmedications that affect renal tubular creatinine secretion. Performed By: #### B MP3, MG3, PHOS3, HEMDF ####[facility] [id number] [place] GFR/1.73 sq M.predicted among blacks MDRD (S/P/Bld) [Vol rate/Area] mL/min/{1.73_m2} Normal >60 [facility] Comment on above: Performed By: #### B MP3, MG3, PHOS3, HEMDF ####[facility] [address] [place] Chloride [Moles/Vol] 105 mmol/L Normal 98-107 [facility] Comment on above: Performed By: #### B MP3, MG3, PHOS3, HEMDF ####[facility] [address] [place], [place] Potassium [Moles/Vol] 3.2 mmol/L Low 3.5-5.1 [facility] Comment on above: Performed By: #### B MP3, MG3, PHOS3, HEMDF ####[facility] [address] [place] Sodium [Moles/Vol] 136 mmol/L Normal 135-145 [facility] Comment on above: Performed By: #### B MP3, MG3, PHOS3, HEMDF ####[facility] [place] [address] Anion gap [Moles/Vol] 12 mmol/L 3 - 13 mmol/L [facility] Calcium [Mass/Vol] 8.7 mg/dL 8.4 - 10. 4 mg/dL [facility] Chloride [Moles/Vol] 105 mmol/L 98 - 10 7 mmol/L [facility] CO2 [Moles/Vol] 20 mmol/L Low 22 - 30 mmol/L [facility] Creatinine [Mass/Vol] 0.53 mg/dL 0.52 - 1.25 mg/dL [facility] EGFR IF NonAfrican Djiboutian >90.0 >60 mL/min [facility] Comment on above: KDIGO guidelines pro vide the following GFR categories: Stage GFR(ml/min/1.73 m2) Terms G1 >=90 Normal or high G2 60-89 Mildly decreased* G3a 45-59 Mildly to moderately decreased G3b 30-44 Moderately to severely decreased G4 15-29 Severely decreased G5 <15 Kidney failure *Relative to young adult level. In the absence of evidence of kidney damage, neither GFR category G1 nor G2 fulfill the criteria for CKD. The CKD-EPI equation is validated in individuals 18 years of age and older. Currently the best equation for estimating glomerular filtration rate (GFR) from serum creatinine in children is the Bedside Boyer equation. It is less accurate in patients with extremes of muscle mass, restriction of dietary protein, ingestion of creatine, extra-renal metabolism of creatinine, or treatment with medications that affect renal tubular creatinine secretion. GFR/1.73 sq M.predicted among blacks MDRD (S/P/Bld) [Vol rate/Area] mL/min/{1.73_m2} >60 mL/min [facility] Glucose [Mass/Vol] 95 mg/dL 70 - 100 mg/dL [facility] Potassium [Moles/Vol] 3.2 mmol/L Low 3.5 - 5.1 mmol/L [facility] Sodium [Moles/Vol] 136 mmol/L 135 - 145 mmol/L [facility] Urea nitrogen (BldV) [Mass/Vol] 6 mg/dL Low 9 - 20 mg/dL [facility] CBC Auto Differentialon 01-0 1-2022 Absolute Baso # 0.1 10*3/uL 0.0 - 0.2 10*3/uL [facility] Absolute Neut # 2.6 10*3/uL 1.8 - 7.0 10*3/uL [facility] Basophils/100 WBC (Bld) 1.0 % 0.0 - 2.0 % [facility] Eosinophils (Bld) [#/Vol] 0.2 10*3/uL 0.0 - 0.5 10*3/uL [facility] Eosinophils/100 WBC (Bld) 3.4 % 1.0 - 6.0 % [facility] Granulocytes/100 WBC (Bld) 50.6 % 40.0 - 80.0 % [facility] Hematocrit (Bld) [Volume fraction] 31.2 % Low 35.0 - 47.0 % [facility] Hemoglobin.gastrointesti nal spec 1 Ql (Stl) 10.0 g/dL Low 11.7 - 16.0 g/dL [facility] Interpretation and review of laboratory results Abnormal [facility] Lymphocytes (Bld) [#/Vol] 1.8 10*3/uL 1.0 - 4.3 10*3/uL [facility] Lymphocytes/100 WBC (Bld) 35.3 % 20.0 - 40.0 % [facility] MCH (RBC) [Entitic mass] 24.7 pg Low 26. 0 - 34.0 pg [facility] MCHC (RBC) [Mass/Vol] 32.1 % 32.0 - 36.0 % [facility] MCV (RBC) [Entitic vol] 77.0 fL Low 79.0 - 98.0 fL [facility] Monocytes (Bld) [#/Vol] 0.5 10*3/uL 0.0 - 0.8 10*3/uL [facility] Monocytes/100 WBC (Bld) 9.7 % 2.0 - 10.0 % [facility] Platelet distribution width (Bld) [Ratio] 15.6 % High 11.5 - 14.5 % [facility] Platelet mean volume (Bld) [Entitic vol] 7.5 fL 7.4 - 10.4 fL [facility] Platelets (Bld) [#/Vol] 276 10*3/uL 140 - 440 10*3/uL [facility] RBC (Bld) [#/Vol] 4.05 10*6/uL 3.80 - 5.20 10*6/uL [facility] WBC (Bld) [#/Vol] 5.1 10*3/uL 3.6 - 10.7 10*3/uL [facility] Test Performed by [facility], [address] [place] [address] [facility] 12 Leadon 09-07-2021 [facility] Test Date: 2021-09-05 Pat Name: ADDIS TORRES Department: 1AU Room: 1711 Gender: F Ornament Stapler: AAKASH : 2000 Requested By: CHANCE MARTINEZ Order Number: [id number] Reading MD: Brady Zambrano Measurements Intervals [place] Rate: 77 P: 52 SC: 160 QRS: 62 QRSD: 103 T: 28 QT: 369 QTc: 418 Interpretive Statements Sinus rhythm Electronically Signed On 09-07-2021 12:08:52 EST by Brady Zambrano [facility] Brady Parks MD - 09/07/2021 [facility] Test Date: 2021-09-05 Pat Name: ADDIS TORRES Department: 1AU Room: 1711 Gender: F Ornament Stapler: AAKASH : 2000 Requested By: CHANCE MARTINEZ Order Number: [id number] Reading MD: Brady Zambrano Measurements Intervals [place] Rate: 77 P: 52 SC: 160 QRS: 62 QRSD: 103 T: 28 QT: 369 QTc: 418 Interpretive Statements Sinus rhythm Electronically Signed On 09-07-2021 12:08:52 EST by Brady [facility]brano [facility] Work Phone: EKG 12 LeadOrdered By: Brady Zambrano on 09-07-2021 [facility] Work Phone: Hemogram w/ Autodiffon 09-07 Abs Baso Cnt 0.1 10*3/uL Normal 0.0-0.2 [facility] Comment on above: Performed By: #### B MP3, MG3, PHOS3, HEMDF ####[address] [place], [place] Abs Neutrophile Cnt 2.6 10*3/uL Normal 1.8-7.0 [facility] Comment on above: Performed By: #### B MP3, MG3, PHOS3, HEMDF ####[address] [place], [place] Basophils/100 WBC (Bld) 1.0 % Normal 0.0-2.0 [facility] Comment on above: Performed By: #### B MP3, MG3, PHOS3, HEMDF ####[address] [place], [place] Eosinophils (Bld) [#/Vol] 0.2 10*3/uL Normal 0.0-0.5 [facility] Comment on above: Performed By: #### B MP3, MG3, PHOS3, HEMDF ####[address] Eosinophils/100 WBC (Bld) 3.4 % Normal 1.0-6.0 [facility] Comment on above: Performed By: #### B MP3, MG3, PHOS3, HEMDF ####[address] [place], [place] Erythrocyte distribution width (RBC) [Ratio] 15.6 % High 11.5-14.5 [facility] Comment on above: Performed By: #### B MP3, MG3, PHOS3, HEMDF ####[address] [place], [place] Granulocytes/100 WBC (Bld) 50.6 % Normal 40.0-80.0 [facility] Comment on above: Performed By: #### B MP3, MG3, PHOS3, HEMDF ####[address] [place], [place] Hematocrit (Bld) [Volume fraction] 31.2 % Low 35.0-47.0 [facility] Comment on above: Performed By: #### B MP3, MG3, PHOS3, HEMDF ####[address] [place], [place] Hemoglobin (Bld) [Mass/Vol] 10.0 g/dL Low 11.7-16.0 [facility] Comment on above: Performed By: #### B MP3, MG3, PHOS3, HEMDF ####[address] [place], [place] Lymphocytes (Bld) [#/Vol] 1.8 10*3/uL Normal 1.0-4.3 [facility] Comment on above: Performed By: #### B MP3, MG3, PHOS3, HEMDF ####[address] [place], [place] Lymphocytes/100 WBC (Bld) 35.3 % Normal 20.0-40.0 [facility] Comment on above: Performed By: #### B MP3, MG3, PHOS3, HEMDF ####[address] [place], [place] MCH (RBC) [Entitic mass] 24.7 pg Low 26.0-34.0 [facility] Comment on above: Performed By: #### B MP3, MG3, PHOS3, HEMDF ####[address] [place], [place] MCHC 32.1 % Normal 32.0-36.0 [facility] Comment on above: Performed By: #### B MP3, MG3, PHOS3, HEMDF ####[address] MCV (RBC) [Entitic vol] 77.0 fL Low 79.0-98.0 [facility] Comment on above: Performed By: #### B MP3, MG3, PHOS3, HEMDF ####[address] [place], [place] Monocytes (Bld) [#/Vol] 0.5 10*3/uL Normal 0.0-0.8 [facility] Comment on above: Performed By: #### B MP3, MG3, PHOS3, HEMDF ####[address] [place], [place] Monocytes/100 WBC (Bld) 9.7 % Normal 2.0-10.0 [facility] Comment on above: Performed By: #### B MP3, MG3, PHOS3, HEMDF ####[address] [place] Platelet mean volume (Bld) [Entitic vol] 7.5 fL Normal 7.4-10.4 [facility] Comment on above: Performed By: #### B MP3, MG3, PHOS3, HEMDF ####[address] [place] Platelets (Bld) [#/Vol] 276 10*3/uL Normal 140-440 [facility] Comment on above: Performed By: #### B MP3, MG3, PHOS3, HEMDF ####[address] [place], [place] RBC (Bld) [#/Vol] 4.05 10*6/uL Normal 3.80-5.20 [facility] Comment on above: Performed By: #### B MP3, MG3, PHOS3, HEMDF ####[address] [place] WBC (Bld) [#/Vol] 5.1 10*3/uL Normal 3.6-10.7 [facility] Comment on above: Performed By: #### B MP3, MG3, PHOS3, HEMDF ####[address] [place], [place] Magnesiumon 09-07-2021 Magnesium [Mass/Vol] 1.8 mg/dL Normal 1.6-2.3 [facility] Comment on above: Performed By: #### B MP3, MG3, PHOS3, HEMDF ####[address] [place], [place] Magnesium [Mass/Vol] 1.8 mg/dL 1.6 - 2 .3 mg/dL [facility] No Panel Informationon 09-07 Interpretation and review of laboratory results Abnormal [facility] Test Performed by [facility] [address] [facility] [address] [facility] Phosphoruson 09-07-2021 Phosphate [Mass/Vol] 4.6 mg/dL High 2.5-4.5 [facility] Comment on above: Performed By: #### B MP3, MG3, PHOS3, HEMDF ####[facility] [address] Phosphate [Mass/Vol] 4.6 mg/dL High 2.5 - 4 .5 mg/dL [facility] Basic Metabolic Panelon 12-3 Anion gap [Moles/Vol] 10 mmol/L Normal 3-13 [facility] Comment on above: Performed By: #### M G3, PHOS3, BMP3, HEMDF ####[address] [place] [address] Calcium [Mass/Vol] 8.8 mg/dL Normal 8.4-10.4 [facility] Comment on above: Performed By: #### M G3, PHOS3, BMP3, HEMDF ####[address] [facility] [place] [address] CO2 [Moles/Vol] 25 mmol/L Normal 22-30 [facility] Comment on above: Performed By: #### M G3, PHOS3, BMP3, HEMDF ####[address] [facility] [place] [address] Glucose [Mass/Vol] 69 mg/dL Low 70-100 [facility] Comment on above: Performed By: #### M G3, PHOS3, BMP3, HEMDF ####[address] [place] [address] Urea nitrogen [Mass/Vol] 4 mg/dL Low 9-20 [facility] Comment on above: Performed By: #### M G3, PHOS3, BMP3, HEMDF ####[address] [place] [address] Creatinine [Mass/Vol] 0.51 mg/dL Low 0.52-1.25 [facility] Comment on above: Performed By: #### M G3, PHOS3, BMP3, HEMDF ####[facility] [address] [place], [place] eGFR OTHER > 90.0 Normal >60 [facility] Comment on above: Result Comment: KDIG O guidelines provide the following GFR categories:Stage GFR(ml/min/1.73 m2) TermsG1 >=90 Normal or highG2 60-89 Mildly decreased*G3a 45-59 Mildly to moderately [id number] 30-44 Moderately to severely decreasedG4 15-29 Severely decreasedG5 <15 Kidney failure*Relative to young adult level.In the absence of evidence of kidney damage, neither GFRcategory G1 nor G2 fulfill the criteria for CKD.The CKD-EPI equation is validated in individuals 18 yearsof age and older. Currently the best equation forestimating glomerular filtration rate (GFR) from serumcreatinine in children is the Bedside Boyer equation.It is less accurate in patients with extremes of musclemass, restriction of dietary protein, ingestion of creatine,extra-renal metabolism of creatinine, or treatment withmedications that affect renal tubular creatinine secretion. Performed By: #### M G3, PHOS3, BMP3, HEMDF ####[facility] [address] [place] GFR/1.73 sq M.predicted among blacks MDRD (S/P/Bld) [Vol rate/Area] mL/min/{1.73_m2} Normal >60 [facility] Comment on above: Performed By: #### M G3, PHOS3, BMP3, HEMDF ####[facility] [address] [place], [place] Chloride [Moles/Vol] 103 mmol/L Normal 98-107 [facility] Comment on above: Performed By: #### M G3, PHOS3, BMP3, HEMDF ####[facility] [address] [place], [place] Potassium [Moles/Vol] 3.1 mmol/L Low 3.5-5.1 [facility] Comment on above: Performed By: #### M G3, PHOS3, BMP3, HEMDF ####[facility] [address] [place] [address] Sodium [Moles/Vol] 139 mmol/L Normal 135-145 [facility] Comment on above: Performed By: #### M G3, PHOS3, BMP3, HEMDF ####[facility] [address] [place] [address] Anion gap [Moles/Vol] 10 mmol/L 3 - 13 mmol/L [facility] Calcium [Mass/Vol] 8.8 mg/dL 8.4 - 10. 4 mg/dL [facility] Chloride [Moles/Vol] 103 mmol/L 98 - 10 7 mmol/L [facility] CO2 [Moles/Vol] 25 mmol/L 22 - 30 mmol/L [facility] Creatinine [Mass/Vol] 0.51 mg/dL Low 0.52 - 1.25 mg/dL [facility] EGFR IF NonAfrican Djiboutian >90.0 >60 mL/min [facility] Comment on above: KDIGO guidelines pro vide the following GFR categories: Stage GFR(ml/min/1.73 m2) Terms G1 >=90 Normal or high G2 60-89 Mildly decreased* G3a 45-59 Mildly to moderately decreased G3b 30-44 Moderately to severely decreased G4 15-29 Severely decreased G5 <15 Kidney failure *Relative to young adult level. In the absence of evidence of kidney damage, neither GFR category G1 nor G2 fulfill the criteria for CKD. The CKD-EPI equation is validated in individuals 18 years of age and older. Currently the best equation for estimating glomerular filtration rate (GFR) from serum creatinine in children is the Bedside Boyer equation. It is less accurate in patients with extremes of muscle mass, restriction of dietary protein, ingestion of creatine, extra-renal metabolism of creatinine, or treatment with medications that affect renal tubular creatinine secretion. GFR/1.73 sq M.predicted among blacks MDRD (S/P/Bld) [Vol rate/Area] mL/min/{1.73_m2} >60 mL/min [facility] Glucose [Mass/Vol] 69 mg/dL Low 70 - 100 mg/dL [facility] Interpretation and review of laboratory results Abnormal [facility] Potassium [Moles/Vol] 3.1 mmol/L Low 3.5 - 5.1 mmol/L [facility] Sodium [Moles/Vol] 139 mmol/L 135 - 145 mmol/L [facility] Urea nitrogen (BldV) [Mass/Vol] 4 mg/dL Low 9 - 20 mg/dL [facility] CBC Auto Differentialon 12-3 Absolute Baso # 0.0 10*3/uL 0.0 - 0.2 10*3/uL [facility] Absolute Neut # 2.4 10*3/uL 1.8 - 7.0 10*3/uL [facility] Basophils/100 WBC (Bld) 1.0 % 0.0 - 2.0 % [facility] Eosinophils (Bld) [#/Vol] 0.2 10*3/uL 0.0 - 0.5 10*3/uL [facility] Eosinophils/100 WBC (Bld) 3.4 % 1.0 - 6.0 % [facility] Granulocytes/100 WBC (Bld) 46.3 % 40.0 - 80.0 % [facility] Hematocrit (Bld) [Volume fraction] 32.0 % Low 35.0 - 47.0 % [facility] Hemoglobin.gastrointesti nal spec 1 Ql (Stl) 10.1 g/dL Low 11.7 - 16.0 g/dL [facility] Interpretation and review of laboratory results Abnormal [facility] Lymphocytes (Bld) [#/Vol] 2.1 10*3/uL 1.0 - 4.3 10*3/uL [facility] Lymphocytes/100 WBC (Bld) 41.0 % High 20.0 - 40.0 % [facility] MCH (RBC) [Entitic mass] 24.7 pg Low 26. 0 - 34.0 pg [facility] MCHC (RBC) [Mass/Vol] 31.4 % Low 32.0 - 36.0 % [facility] MCV (RBC) [Entitic vol] 78.5 fL Low 79.0 - 98.0 fL [facility] Monocytes (Bld) [#/Vol] 0.4 10*3/uL 0.0 - 0.8 10*3/uL [facility] Monocytes/100 WBC (Bld) 8.3 % 2.0 - 10.0 % [facility] Platelet distribution width (Bld) [Ratio] 16.0 % High 11.5 - 14.5 % [facility] Platelet mean volume (Bld) [Entitic vol] 7.3 fL Low 7.4 - 10.4 fL [facility] Platelets (Bld) [#/Vol] 256 10*3/uL 140 - 440 10*3/uL [facility] RBC (Bld) [#/Vol] 4.08 10*6/uL 3.80 - 5.20 10*6/uL [facility] WBC (Bld) [#/Vol] 5.1 10*3/uL 3.6 - 10.7 10*3/uL [facility] Test Performed by [facility], [address] [place] [address] [facility] CULTURE URINEon 09-06-2021 CULTURE URINE CULTURE URINE --> St atus: F No growth (<1,000 CFU/ml). Normal [facility] Comment on above: Performed By: #### C /UR ####[address] [place], [place] Culture, Urineon 09-06-2021 Bacteria identified Cx Nom (U) No growth (<1,000 CFU/ml). [facility] Test Performed by [id number] [place] [address] LAB [facility] Hemogram w/ Autodiffon 09-06 Abs Baso Cnt 0.0 10*3/uL Normal 0.0-0.2 [facility] Comment on above: Performed By: #### M G3, PHOS3, BMP3, HEMDF ####[address] [place], [place] Abs Neutrophile Cnt 2.4 10*3/uL Normal 1.8-7.0 [facility] Comment on above: Performed By: #### M G3, PHOS3, BMP3, HEMDF ####[address] [place], [place] Basophils/100 WBC (Bld) 1.0 % Normal 0.0-2.0 [facility] Comment on above: Performed By: #### M G3, PHOS3, BMP3, HEMDF ####[address] [place], [place] Eosinophils (Bld) [#/Vol] 0.2 10*3/uL Normal 0.0-0.5 [facility] Comment on above: Performed By: #### M G3, PHOS3, BMP3, HEMDF ####[address] [place], [place] Eosinophils/100 WBC (Bld) 3.4 % Normal 1.0-6.0 [facility] Comment on above: Performed By: #### M G3, PHOS3, BMP3, HEMDF ####[address] [place], [place] Erythrocyte distribution width (RBC) [Ratio] 16.0 % High 11.5-14.5 [facility] Comment on above: Performed By: #### M G3, PHOS3, BMP3, HEMDF ####[address] Granulocytes/100 WBC (Bld) 46.3 % Normal 40.0-80.0 [facility] Comment on above: Performed By: #### M G3, PHOS3, BMP3, HEMDF ####[address] Hematocrit (Bld) [Volume fraction] 32.0 % Low 35.0-47.0 [facility] Comment on above: Performed By: #### M G3, PHOS3, BMP3, HEMDF ####[address] Hemoglobin (Bld) [Mass/Vol] 10.1 g/dL Low 11.7-16.0 [facility] Comment on above: Performed By: #### M G3, PHOS3, BMP3, HEMDF ####[address] Lymphocytes (Bld) [#/Vol] 2.1 10*3/uL Normal 1.0-4.3 [facility] Comment on above: Performed By: #### M G3, PHOS3, BMP3, HEMDF ####[address] Lymphocytes/100 WBC (Bld) 41.0 % High 20.0-40.0 [facility] Comment on above: Performed By: #### M G3, PHOS3, BMP3, HEMDF ####[address] [place], [place] MCH (RBC) [Entitic mass] 24.7 pg Low 26.0-34.0 [facility] Comment on above: Performed By: #### M G3, PHOS3, BMP3, HEMDF ####[address] [place] MCHC 31.4 % Low 32.0-36.0 [facility] Comment on above: Performed By: #### M G3, PHOS3, BMP3, HEMDF ####[address] [place] MCV (RBC) [Entitic vol] 78.5 fL Low 79.0-98.0 [facility] Comment on above: Performed By: #### Peter G3, PHOS3, BMP3, HEMDF ####[address] [place], [place] Monocytes (Bld) [#/Vol] 0.4 10*3/uL Normal 0.0-0.8 [facility] Comment on above: Performed By: #### M G3, PHOS3, BMP3, HEMDF ####[address] [place], [place] Monocytes/100 WBC (Bld) 8.3 % Normal 2.0-10.0 [facility] Comment on above: Performed By: #### M G3, PHOS3, BMP3, HEMDF ####[address] [place] Platelet mean volume (Bld) [Entitic vol] 7.3 fL Low 7.4-10.4 [facility] Comment on above: Performed By: #### M G3, PHOS3, BMP3, HEMDF ####[address] [place], [place] Platelets (Bld) [#/Vol] 256 10*3/uL Normal 140-440 [facility] Comment on above: Performed By: #### M G3, PHOS3, BMP3, HEMDF ####[address] [place] [address] RBC (Bld) [#/Vol] 4.08 10*6/uL Normal 3.80-5.20 [facility] Comment on above: Performed By: #### M G3, PHOS3, BMP3, HEMDF ####[address] [place] [address] WBC (Bld) [#/Vol] 5.1 10*3/uL Normal 3.6-10.7 [facility] Comment on above: Performed By: #### M G3, PHOS3, BMP3, HEMDF ####[address] [place] [address] Magnesiumon 09-06-2021 Magnesium [Mass/Vol] 1.9 mg/dL Normal 1.6-2.3 [facility] Comment on above: Performed By: #### M G3, PHOS3, BMP3, HEMDF ####[address] [address] Magnesium [Mass/Vol] 1.9 mg/dL 1.6 - 2 .3 mg/dL [facility] No Panel Informationon 09-06 Test Performed by [facility], [facility] [place] [address] [facility] Phosphoruson 09-06-2021 Phosphate [Mass/Vol] 3.7 mg/dL Normal 2.5-4.5 [facility] Comment on above: Performed By: #### M G3, PHOS3, BMP3, HEMDF ####[address] [place] [address] Phosphate [Mass/Vol] 3.7 mg/dL 2.5 - 4 .5 mg/dL [facility] Basic Metabolic Panelon 08-09 Anion gap [Moles/Vol] 11 mmol/L Normal 3-13 [facility] Comment on above: Performed By: #### H EMDF, PHOS3, BMP3, MG3 ####[address] [place] [address] Calcium [Mass/Vol] 8.8 mg/dL Normal 8.4-10.4 [facility] Comment on above: Performed By: #### H EMDF, PHOS3, BMP3, MG3 ####[facility] [id number] [place], [place] CO2 [Moles/Vol] 25 mmol/L Normal 22-30 [facility] Comment on above: Performed By: #### H EMDF, PHOS3, BMP3, MG3 ####[facility] [address] [place], [place] Glucose [Mass/Vol] 91 mg/dL Normal 70-100 [facility] Comment on above: Performed By: #### H EMDF, PHOS3, BMP3, MG3 ####[address] [place], [place] Urea nitrogen [Mass/Vol] 6 mg/dL Low 9-20 [facility] Comment on above: Performed By: #### H EMDF, PHOS3, BMP3, MG3 ####[facility] [id number] [place], [place] Creatinine [Mass/Vol] 0.48 mg/dL Low 0.52-1.25 [facility] Comment on above: Performed By: #### H EMDF, PHOS3, BMP3, MG3 ####[facility] [address] [place], [place] eGFR OTHER > 90.0 Normal >60 [facility] Comment on above: Result Comment: KDIG O guidelines provide the following GFR categories:Stage GFR(ml/min/1.73 m2) TermsG1 >=90 Normal or highG2 60-89 Mildly decreased*G3a 45-59 Mildly to moderately [id number] 30-44 Moderately to severely decreasedG4 15-29 Severely decreasedG5 <15 Kidney failure*Relative to young adult level.In the absence of evidence of kidney damage, neither GFRcategory G1 nor G2 fulfill the criteria for CKD.The CKD-EPI equation is validated in individuals 18 yearsof age and older. Currently the best equation forestimating glomerular filtration rate (GFR) from serumcreatinine in children is the Bedside Boyer equation.It is less accurate in patients with extremes of musclemass, restriction of dietary protein, ingestion of creatine,extra-renal metabolism of creatinine, or treatment withmedications that affect renal tubular creatinine secretion. Performed By: #### H EMDF, PHOS3, BMP3, MG3 ####[address] [place], [place] GFR/1.73 sq M.predicted among blacks MDRD (S/P/Bld) [Vol rate/Area] mL/min/{1.73_m2} Normal >60 [facility] Comment on above: Performed By: #### H EMDF, PHOS3, BMP3, MG3 ####[address] [place], [place] Potassium [Moles/Vol] 3.5 mmol/L Normal 3.5-5.1 [facility] Comment on above: Performed By: #### H EMDF, PHOS3, BMP3, MG3 ####[address] [place], [place] Sodium [Moles/Vol] 139 mmol/L Normal 135-145 [facility] Comment on above: Performed By: #### H EMDF, PHOS3, BMP3, MG3 ####[address] [place], [place] Chloride [Moles/Vol] 103 mmol/L Normal 98-107 [facility] Comment on above: Performed By: #### H EMDF, PHOS3, BMP3, MG3 ####[address] [place], [place] Anion gap [Moles/Vol] 11 mmol/L 3 - 13 mmol/L [facility] Calcium [Mass/Vol] 8.8 mg/dL 8.4 - 10. 4 mg/dL [facility] Chloride [Moles/Vol] 103 mmol/L 98 - 10 7 mmol/L [facility] CO2 [Moles/Vol] 25 mmol/L 22 - 30 mmol/L [facility] Creatinine [Mass/Vol] 0.48 mg/dL Low 0.52 - 1.25 mg/dL [facility] EGFR IF NonAfrican Djiboutian >90.0 >60 mL/min [facility] Comment on above: KDIGO guidelines pro vide the following GFR categories: Stage GFR(ml/min/1.73 m2) Terms G1 >=90 Normal or high G2 60-89 Mildly decreased* G3a 45-59 Mildly to moderately decreased G3b 30-44 Moderately to severely decreased G4 15-29 Severely decreased G5 <15 Kidney failure *Relative to young adult level. In the absence of evidence of kidney damage, neither GFR category G1 nor G2 fulfill the criteria for CKD. The CKD-EPI equation is validated in individuals 18 years of age and older. Currently the best equation for estimating glomerular filtration rate (GFR) from serum creatinine in children is the Bedside Boyer equation. It is less accurate in patients with extremes of muscle mass, restriction of dietary protein, ingestion of creatine, extra-renal metabolism of creatinine, or treatment with medications that affect renal tubular creatinine secretion. GFR/1.73 sq M.predicted among blacks MDRD (S/P/Bld) [Vol rate/Area] mL/min/{1.73_m2} >60 mL/min [facility] Glucose [Mass/Vol] 91 mg/dL 70 - 100 mg/dL [facility] Interpretation and review of laboratory results Abnormal [facility] Potassium [Moles/Vol] 3.5 mmol/L 3.5 - 5.1 mmol/L [facility] Sodium [Moles/Vol] 139 mmol/L 135 - 145 mmol/L [facility] Urea nitrogen (BldV) [Mass/Vol] 6 mg/dL Low 9 - 20 mg/dL [facility] CBC Auto Differentialon 123 Absolute Baso # 0.1 10*3/uL 0.0 - 0.2 10*3/uL [facility] Absolute Neut # 3.6 10*3/uL 1.8 - 7.0 10*3/uL [facility] Basophils/100 WBC (Bld) 1.1 % 0.0 - 2.0 % [facility] Eosinophils (Bld) [#/Vol] 0.1 10*3/uL 0.0 - 0.5 10*3/uL [facility] Eosinophils/100 WBC (Bld) 1.9 % 1.0 - 6.0 % [facility] Granulocytes/100 WBC (Bld) 65.1 % 40.0 - 80.0 % [facility] Hematocrit (Bld) [Volume fraction] 32.1 % Low 35.0 - 47.0 % [facility] Hemoglobin.gastrointesti nal spec 1 Ql (Stl) 10.1 g/dL Low 11.7 - 16.0 g/dL [facility] Interpretation and review of laboratory results Abnormal [facility] Lymphocytes (Bld) [#/Vol] 1.2 10*3/uL 1.0 - 4.3 10*3/uL [facility] Lymphocytes/100 WBC (Bld) 21.6 % 20.0 - 40.0 % [facility] MCH (RBC) [Entitic mass] 24.5 pg Low 26. 0 - 34.0 pg [facility] MCHC (RBC) [Mass/Vol] 31.6 % Low 32.0 - 36.0 % [facility] MCV (RBC) [Entitic vol] 77.5 fL Low 79.0 - 98.0 fL [facility] Monocytes (Bld) [#/Vol] 0.6 10*3/uL 0.0 - 0.8 10*3/uL [facility] Monocytes/100 WBC (Bld) 10.3 % High 2.0 - 10.0 % [facility] Platelet distribution width (Bld) [Ratio] 16.2 % High 11.5 - 14.5 % [facility] Platelet mean volume (Bld) [Entitic vol] 7.3 fL Low 7.4 - 10.4 fL [facility] Platelets (Bld) [#/Vol] 259 10*3/uL 140 - 440 10*3/uL [facility] RBC (Bld) [#/Vol] 4.14 10*6/uL 3.80 - 5.20 10*6/uL [facility] WBC (Bld) [#/Vol] 5.5 10*3/uL 3.6 - 10.7 10*3/uL [facility] Test Performed by [address] [facility] CT Abdomen Pelvis Wo Contras ton 09-05-2021 Patient Name: ADDIS TORRES Computed Tomography ACCESSION EXAM DATE/TIME PROCEDURE ORDERING PROVIDER [id number] 09/05/2021 09:[address] Abdomen/Pelvis (No [id number] -[place], [place] PO, No IV) CPT code 77800 Reason For Exam (CT Abdomen/Pelvis (No PO, No IV)) LLQ ABND LEFT FLANK PAIN. Hx of ureteral stent and hx of pyelo Report Indication: Left lower quadrant flank pain. History of uterine cancer. Comparison 08/25/2021. FINDINGS: Unenhanced abdomen and pelvis performed. Lung bases show no major volume loss. Within the abdomen, no free air. Bowel pattern nonobstructive. No appendicitis. Evaluation of bowel limited by lack of oral contrast. Stable positioning of left ureteral stent. Stable mild left hydronephrosis. No acute perinephric process. No bladder calculi. Negative right kidney liver gallbladder without stones pancreas or spleen for acute process. No adrenal mass or aneurysm. No bladder calculi. No acute paraspinous process or spinal compression. Improvement in para-aortic adenopathy seen previously. No definite new masses. Limited by lack of oral contrast and intravenous contrast. IMPRESSION: Stable mild left hydronephrosis. Left ureteral stent. No acute/interval obstruction or focal inflammation. The etiology of the symptoms is not certain. Limited by lack of contrast. Report Dictated on --- Final --- Dictated: 09/05/2021 10:54 am Dictating Physician: MD CALVIN JOHN Signed Date and Time: 09/05/2021 11:13 am Signed by: MD CALVIN JOHN Transcribed Date and Time: 09/05/2021 10:54 [facility] Ziyad Calvin MD - 09/05/2021 Patient Name: ADDIS TORRES Computed Tomography ACCESSION EXAM DATE/TIME PROCEDURE ORDERING PROVIDER [id number] 09/05/2021 09:[address] Abdomen/Pelvis (No [id number] -[place], [place] PO, No IV) CPT code 50927 Reason For Exam (CT Abdomen/Pelvis (No PO, No IV)) LLQ ABND LEFT FLANK PAIN. Hx of ureteral stent and hx of pyelo Report Indication: Left lower quadrant flank pain. History of uterine cancer. Comparison 08/25/2021. FINDINGS: Unenhanced abdomen and pelvis performed. Lung bases show no major volume loss. Within the abdomen, no free air. Bowel pattern nonobstructive. No appendicitis. Evaluation of bowel limited by lack of oral contrast. Stable positioning of left ureteral stent. Stable mild left hydronephrosis. No acute perinephric process. No bladder calculi. Negative right kidney liver gallbladder without stones pancreas or spleen for acute process. No adrenal mass or aneurysm. No bladder calculi. No acute paraspinous process or spinal compression. Improvement in para-aortic adenopathy seen previously. No definite new masses. Limited by lack of oral contrast and intravenous contrast. IMPRESSION: Stable mild left hydronephrosis. Left ureteral stent. No acute/interval obstruction or focal inflammation. The etiology of the symptoms is not certain. Limited by lack of contrast. Report Dictated on --- Final --- Dictated: 09/05/2021 10:54 am Dictating Physician: MD CALIVN JOHN Signed Date and Time: 09/05/2021 11:13 am Signed by: MD CALVIN JOHN Transcribed Date and Time: 09/05/2021 10:54 [facility] Work Phone: Radiology Study observation (narrative) [facility] Work Phone: CT Abdomen Pelvis Wo Contras tOrdered By: Ziyad Calvin on 09-05-2021 [email or web address] Work Phone: CT Abdomen/Pelvis w/o Contra ston 09-05-2021 CT Abdomen/Pelvis w/o Contrast Normal [facility] Hemogram w/ Autodiffon 09-05 Abs Baso Cnt 0.1 10*3/uL Normal 0.0-0.2 [facility] Comment on above: Performed By: #### H EMDF, PHOS3, BMP3, MG3 ####[facility] [address] [place] [address] Abs Neutrophile Cnt 3.6 10*3/uL Normal 1.8-7.0 [facility] Comment on above: Performed By: #### H EMDF, PHOS3, BMP3, MG3 ####[facility] [address] [place] [address] Basophils/100 WBC (Bld) 1.1 % Normal 0.0-2.0 [facility] Comment on above: Performed By: #### H EMDF, PHOS3, BMP3, MG3 ####[address] [place], [place] Eosinophils (Bld) [#/Vol] 0.1 10*3/uL Normal 0.0-0.5 [facility] Comment on above: Performed By: #### H EMDF, PHOS3, BMP3, MG3 ####[address] Eosinophils/100 WBC (Bld) 1.9 % Normal 1.0-6.0 [facility] Comment on above: Performed By: #### H EMDF, PHOS3, BMP3, MG3 ####[address] Erythrocyte distribution width (RBC) [Ratio] 16.2 % High 11.5-14.5 [facility] Comment on above: Performed By: #### H EMDF, PHOS3, BMP3, MG3 ####[address] Granulocytes/100 WBC (Bld) 65.1 % Normal 40.0-80.0 [facility] Comment on above: Performed By: #### H EMDF, PHOS3, BMP3, MG3 ####[address] Hematocrit (Bld) [Volume fraction] 32.1 % Low 35.0-47.0 [facility] Comment on above: Performed By: #### H EMDF, PHOS3, BMP3, MG3 ####[address] Hemoglobin (Bld) [Mass/Vol] 10.1 g/dL Low 11.7-16.0 [facility] Comment on above: Performed By: #### H EMDF, PHOS3, BMP3, MG3 ####[address] Lymphocytes (Bld) [#/Vol] 1.2 10*3/uL Normal 1.0-4.3 [facility] Comment on above: Performed By: #### H EMDF, PHOS3, BMP3, MG3 ####[address] Lymphocytes/100 WBC (Bld) 21.6 % Normal 20.0-40.0 [facility] Comment on above: Performed By: #### H EMDF, PHOS3, BMP3, MG3 ####[address] MCH (RBC) [Entitic mass] 24.5 pg Low 26.0-34.0 [facility] Comment on above: Performed By: #### H EMDF, PHOS3, BMP3, MG3 ####[address] MCHC 31.6 % Low 32.0-36.0 [facility] Comment on above: Performed By: #### H EMDF, PHOS3, BMP3, MG3 ####[address] MCV (RBC) [Entitic vol] 77.5 fL Low 79.0-98.0 [facility] Comment on above: Performed By: #### H EMDF, PHOS3, BMP3, MG3 ####[address] Monocytes (Bld) [#/Vol] 0.6 10*3/uL Normal 0.0-0.8 [facility] Comment on above: Performed By: #### H EMDF, PHOS3, BMP3, MG3 ####[address] Monocytes/100 WBC (Bld) 10.3 % High 2.0-10.0 [facility] Comment on above: Performed By: #### H EMDF, PHOS3, BMP3, MG3 ####[address] Platelet mean volume (Bld) [Entitic vol] 7.3 fL Low 7.4-10.4 [facility] Comment on above: Performed By: #### H EMDF, PHOS3, BMP3, MG3 ####[address] [place] [address] Platelets (Bld) [#/Vol] 259 10*3/uL Normal 140-440 [facility] Comment on above: Performed By: #### H EMDF, PHOS3, BMP3, MG3 ####[address] [place] [address] RBC (Bld) [#/Vol] 4.14 10*6/uL Normal 3.80-5.20 [facility] Comment on above: Performed By: #### H EMDF, PHOS3, BMP3, MG3 ####[address] [place] [address] WBC (Bld) [#/Vol] 5.5 10*3/uL Normal 3.6-10.7 [facility] Comment on above: Performed By: #### H EMDF, PHOS3, BMP3, MG3 ####[address] [place] [address] Magnesiumon 09-05-2021 Magnesium [Mass/Vol] 2.0 mg/dL Normal 1.6-2.3 [facility] Comment on above: Performed By: #### H EMDF, PHOS3, BMP3, MG3 ####[address] [place] [address] Magnesium [Mass/Vol] 2.0 mg/dL 1.6 - 2 .3 mg/dL [facility] No Panel Informationon 09-05 Test Performed by [facility], [address] [place] [place] [address] [facility] Phosphoruson 09-05-2021 Phosphate [Mass/Vol] 3.2 mg/dL Normal 2.5-4.5 [facility] Comment on above: Performed By: #### H EMDF, PHOS3, BMP3, MG3 ####[address] [place] [address] Phosphate [Mass/Vol] 3.2 mg/dL 2.5 - 4 .5 mg/dL [facility] Add On Lab Teston 09-04-2021 Add On Accepted [facility] Comment on above: Specimen available & acceptable for analysis. Test Performed by [facility], [address], [place] [address] [facility] Add on test from HISon 09-04 Add on test from HIS Accepted Normal [facility] Comment on above: Result Comment: Spec imen available & acceptable for analysis. Performed By: #### A DDON ####[address] [place] [place] [address] Basic Metabolic Panelon 08-08 Anion gap [Moles/Vol] 11 mmol/L Normal 3-13 [facility] Comment on above: Performed By: #### H EMDF, MG3, BMP3, PHOS3 ####[address] [place] [address] Calcium [Mass/Vol] 8.9 mg/dL Normal 8.4-10.4 [facility] Comment on above: Performed By: #### H EMDF, MG3, BMP3, PHOS3 ####[address] [place], [place] CO2 [Moles/Vol] 24 mmol/L Normal 22-30 [facility] Comment on above: Performed By: #### H EMDF, MG3, BMP3, PHOS3 ####[address] [place], [place] Glucose [Mass/Vol] 100 mg/dL Normal 70-100 [facility] Comment on above: Performed By: #### H EMDF, MG3, BMP3, PHOS3 ####[address] [place] [address] Urea nitrogen [Mass/Vol] 10 mg/dL Normal 9-20 [facility] Comment on above: Performed By: #### H EMDF, MG3, BMP3, PHOS3 ####[address] [place] [address] Creatinine [Mass/Vol] 0.54 mg/dL Normal 0.52-1.25 [facility] Comment on above: Performed By: #### H EMDF, MG3, BMP3, PHOS3 ####[facility] [id number] [place], [place] eGFR OTHER > 90.0 Normal >60 [facility] Comment on above: Result Comment: KDIG O guidelines provide the following GFR categories:Stage GFR(ml/min/1.73 m2) TermsG1 >=90 Normal or highG2 60-89 Mildly decreased*G3a 45-59 Mildly to moderately [id number] 30-44 Moderately to severely decreasedG4 15-29 Severely decreasedG5 <15 Kidney failure*Relative to young adult level.In the absence of evidence of kidney damage, neither GFRcategory G1 nor G2 fulfill the criteria for CKD.The CKD-EPI equation is validated in individuals 18 yearsof age and older. Currently the best equation forestimating glomerular filtration rate (GFR) from serumcreatinine in children is the Bedside Boyer equation.It is less accurate in patients with extremes of musclemass, restriction of dietary protein, ingestion of creatine,extra-renal metabolism of creatinine, or treatment withmedications that affect renal tubular creatinine secretion. Performed By: #### H EMDF, MG3, BMP3, PHOS3 ####[facility] [id number] [place], [place] GFR/1.73 sq M.predicted among blacks MDRD (S/P/Bld) [Vol rate/Area] mL/min/{1.73_m2} Normal >60 [facility] Comment on above: Performed By: #### H EMDF, MG3, BMP3, PHOS3 ####[facility] [address] [place], [place] Chloride [Moles/Vol] 104 mmol/L Normal 98-107 [facility] Comment on above: Performed By: #### H EMDF, MG3, BMP3, PHOS3 ####[facility] [address] [place], [place] Potassium [Moles/Vol] 3.5 mmol/L Normal 3.5-5.1 [facility] Comment on above: Performed By: #### H EMDF, MG3, BMP3, PHOS3 ####[facility] [place] [address] Sodium [Moles/Vol] 138 mmol/L Normal 135-145 [facility] Comment on above: Performed By: #### H EMDF, MG3, BMP3, PHOS3 ####[facility] [place] [address] Anion gap [Moles/Vol] 11 mmol/L 3 - 13 mmol/L [facility] Calcium [Mass/Vol] 8.9 mg/dL 8.4 - 10. 4 mg/dL [facility] Chloride [Moles/Vol] 104 mmol/L 98 - 10 7 mmol/L [facility] CO2 [Moles/Vol] 24 mmol/L 22 - 30 mmol/L [facility] Creatinine [Mass/Vol] 0.54 mg/dL 0.52 - 1.25 mg/dL [facility] EGFR IF NonAfrican Djiboutian >90.0 >60 mL/min [facility] Comment on above: KDIGO guidelines pro vide the following GFR categories: Stage GFR(ml/min/1.73 m2) Terms G1 >=90 Normal or high G2 60-89 Mildly decreased* G3a 45-59 Mildly to moderately decreased G3b 30-44 Moderately to severely decreased G4 15-29 Severely decreased G5 <15 Kidney failure *Relative to young adult level. In the absence of evidence of kidney damage, neither GFR category G1 nor G2 fulfill the criteria for CKD. The CKD-EPI equation is validated in individuals 18 years of age and older. Currently the best equation for estimating glomerular filtration rate (GFR) from serum creatinine in children is the Bedside Boyer equation. It is less accurate in patients with extremes of muscle mass, restriction of dietary protein, ingestion of creatine, extra-renal metabolism of creatinine, or treatment with medications that affect renal tubular creatinine secretion. GFR/1.73 sq M.predicted among blacks MDRD (S/P/Bld) [Vol rate/Area] mL/min/{1.73_m2} >60 mL/min [facility] Glucose [Mass/Vol] 100 mg/dL 70 - 100 mg/dL [facility] Potassium [Moles/Vol] 3.5 mmol/L 3.5 - 5.1 mmol/L [facility] Sodium [Moles/Vol] 138 mmol/L 135 - 145 mmol/L [facility] Urea nitrogen (BldV) [Mass/Vol] 10 mg/dL 9 - 20 mg/dL [facility] CBC Auto Differentialon -2 Absolute Baso # 0.0 10*3/uL 0.0 - 0.2 10*3/uL [facility] Absolute Neut # 5.7 10*3/uL 1.8 - 7.0 10*3/uL [facility] Basophils/100 WBC (Bld) 0.5 % 0.0 - 2.0 % [facility] Eosinophils (Bld) [#/Vol] 0.0 10*3/uL 0.0 - 0.5 10*3/uL [facility] Eosinophils/100 WBC (Bld) 0.5 % Low 1.0 - 6.0 % [facility] Granulocytes/100 WBC (Bld) 78.6 % 40.0 - 80.0 % [facility] Hematocrit (Bld) [Volume fraction] 32.1 % Low 35.0 - 47.0 % [facility] Hemoglobin.gastrointesti nal spec 1 Ql (Stl) 10.1 g/dL Low 11.7 - 16.0 g/dL [facility] Interpretation and review of laboratory results Abnormal [facility] Lymphocytes (Bld) [#/Vol] 1.0 10*3/uL 1.0 - 4.3 10*3/uL [facility] Lymphocytes/100 WBC (Bld) 13.3 % Low 20.0 - 40.0 % [facility] MCH (RBC) [Entitic mass] 24.5 pg Low 26. 0 - 34.0 pg [facility] MCHC (RBC) [Mass/Vol] 31.5 % Low 32.0 - 36.0 % [facility] MCV (RBC) [Entitic vol] 77.8 fL Low 79.0 - 98.0 fL [facility] Monocytes (Bld) [#/Vol] 0.5 10*3/uL 0.0 - 0.8 10*3/uL [facility] Monocytes/100 WBC (Bld) 7.1 % 2.0 - 10.0 % [facility] Platelet distribution width (Bld) [Ratio] 16.6 % High 11.5 - 14.5 % [facility] Platelet mean volume (Bld) [Entitic vol] 7.3 fL Low 7.4 - 10.4 fL [facility] Platelets (Bld) [#/Vol] 313 10*3/uL 140 - 440 10*3/uL [facility] RBC (Bld) [#/Vol] 4.13 10*6/uL 3.80 - 5.20 10*6/uL [facility] WBC (Bld) [#/Vol] 7.3 10*3/uL 3.6 - 10.7 10*3/uL [facility] Test Performed by [facility], [address] [place] [address] [facility] Absolute Baso # 0.0 10*3/uL 0.0 - 0.2 10*3/uL [facility] Absolute Neut # 6.3 10*3/uL 1.8 - 7.0 10*3/uL [facility] Basophils/100 WBC (Bld) 0.5 % 0.0 - 2.0 % [facility] Eosinophils (Bld) [#/Vol] 0.1 10*3/uL 0.0 - 0.5 10*3/uL [facility] Eosinophils/100 WBC (Bld) 0.7 % Low 1.0 - 6.0 % [facility] Granulocytes/100 WBC (Bld) 83.9 % High 40.0 - 80.0 % [facility] Hematocrit (Bld) [Volume fraction] 36.6 % 35.0 - 47.0 % [facility] Hemoglobin.gastrointesti nal spec 1 Ql (Stl) 11.7 g/dL 11.7 - 16.0 g/dL [facility] Interpretation and review of laboratory results Abnormal [facility] Lymphocytes (Bld) [#/Vol] 0.8 10*3/uL Low 1.0 - 4.3 10*3/uL [facility] Lymphocytes/100 WBC (Bld) 10.7 % Low 20.0 - 40.0 % [facility] MCH (RBC) [Entitic mass] 24.7 pg Low 26. 0 - 34.0 pg [facility] MCHC (RBC) [Mass/Vol] 32.0 % 32.0 - 36.0 % [facility] MCV (RBC) [Entitic vol] 77.2 fL Low 79.0 - 98.0 fL [facility] Monocytes (Bld) [#/Vol] 0.3 10*3/uL 0.0 - 0.8 10*3/uL [facility] Monocytes/100 WBC (Bld) 4.2 % 2.0 - 10.0 % [facility] Platelet distribution width (Bld) [Ratio] 16.9 % High 11.5 - 14.5 % [facility] Platelet mean volume (Bld) [Entitic vol] 7.4 fL 7.4 - 10.4 fL [facility] Platelets (Bld) [#/Vol] 382 10*3/uL 140 - 440 10*3/uL [facility] RBC (Bld) [#/Vol] 4.74 10*6/uL 3.80 - 5.20 10*6/uL [facility] WBC (Bld) [#/Vol] 7.5 10*3/uL 3.6 - 10.7 10*3/uL [facility] Test Performed by [facility], [address] [place] [address] [facility] Abdomen APon 09-04-2021 CR Abdomen AP Normal [facility] CULTURE URINEon 09-04-2021 CULTURE URINE CULTURE URINE --> St atus: F Normal urogenital kristin present. Normal [facility] Comment on above: Performed By: #### C /UR, CUA2 ####[address] [place] [address] Comp Metabolic Panelon 09-04 ALT [Catalytic activity/Vol] 16 U/L Normal 0-34 [facility] Comment on above: Result Comment: The ALT test is performed by an updated assay method.Please note that the reference intervals have beenchanged and are now sex specific. Performed By: #### C MP3, HEMDF, LIPA4, MG3, PCAL ####[facility] [address] [place] [address] Calcium [Mass/Vol] 9.6 mg/dL Normal 8.4-10.4 [facility] Comment on above: Performed By: #### C MP3, HEMDF, LIPA4, MG3, PCAL ####[facility] [id number] [place] [address] ALP [Catalytic activity/Vol] 59 U/L Normal 38-126 [facility] Comment on above: Result Comment: Slig htly hemolysed, interpret with caution. Performed By: #### C MP3, HEMDF, LIPA4, MG3, PCAL ####[address] [place], [place] Anion gap [Moles/Vol] 12 mmol/L Normal 3-13 [facility] Comment on above: Performed By: #### C MP3, HEMDF, LIPA4, MG3, PCAL ####[address] [place], [place] AST [Catalytic activity/Vol] 37 U/L Normal 15-46 [facility] Comment on above: Result Comment: Slig htly hemolysed, interpret with caution. Performed By: #### C MP3, HEMDF, LIPA4, MG3, PCAL ####[address] [place], [place] Bilirubin [Mass/Vol] 0.8 mg/dL Normal 0.2-1.3 [facility] Comment on above: Performed By: #### C MP3, HEMDF, LIPA4, MG3, PCAL ####[address] [place], [place] CO2 [Moles/Vol] 25 mmol/L Normal 22-30 [facility] Comment on above: Performed By: #### C MP3, HEMDF, LIPA4, MG3, PCAL ####[id number] [place], [place] Creatinine [Mass/Vol] 0.63 mg/dL Normal 0.52-1.25 [facility] Comment on above: Performed By: #### C MP3, HEMDF, LIPA4, MG3, PCAL ####[id number] . [place], [place] eGFR OTHER > 90.0 Normal >60 [facility] Comment on above: Result Comment: KDIG O guidelines provide the following GFR categories:Stage GFR(ml/min/1.73 m2) TermsG1 >=90 Normal or highG2 60-89 Mildly decreased*G3a 45-59 Mildly to moderately [id number] 30-44 Moderately to severely decreasedG4 15-29 Severely decreasedG5 <15 Kidney failure*Relative to young adult level.In the absence of evidence of kidney damage, neither GFRcategory G1 nor G2 fulfill the criteria for CKD.The CKD-EPI equation is validated in individuals 18 yearsof age and older. Currently the best equation forestimating glomerular filtration rate (GFR) from serumcreatinine in children is the Bedside Boyer equation.It is less accurate in patients with extremes of musclemass, restriction of dietary protein, ingestion of creatine,extra-renal metabolism of creatinine, or treatment withmedications that affect renal tubular creatinine secretion. Performed By: #### C MP3, HEMDF, LIPA4, MG3, PCAL ####[facility] [id number] [place], [place] GFR/1.73 sq M.predicted among blacks MDRD (S/P/Bld) [Vol rate/Area] mL/min/{1.73_m2} Normal >60 [facility] Comment on above: Performed By: #### C MP3, HEMDF, LIPA4, MG3, PCAL ####[address] [place], [place] Glucose [Mass/Vol] 102 mg/dL High 70-100 [facility] Comment on above: Performed By: #### C MP3, HEMDF, LIPA4, MG3, PCAL ####[address] [place], [place] Protein [Mass/Vol] 8.7 g/dL High 6.3-8.2 [facility] Comment on above: Performed By: #### C MP3, HEMDF, LIPA4, MG3, PCAL ####[address] [place], [place] Urea nitrogen [Mass/Vol] 12 mg/dL Normal 9-20 [facility] Comment on above: Performed By: #### C MP3, HEMDF, LIPA4, MG3, PCAL ####[facility] [id number] [place], [place] Potassium [Moles/Vol] 4.0 mmol/L Normal 3.5-5.1 [facility] Comment on above: Result Comment: Slig htly hemolysed, interpret with caution. Performed By: #### C MP3, HEMDF, LIPA4, MG3, PCAL ####[address] [place], [place] Sodium [Moles/Vol] 139 mmol/L Normal 135-145 [facility] Comment on above: Performed By: #### C MP3, HEMDF, LIPA4, MG3, PCAL ####[address] [place], [place] Albumin [Mass/Vol] 4.8 g/dL Normal 3.5-5.0 [facility] Comment on above: Performed By: #### C MP3, HEMDF, LIPA4, MG3, PCAL ####[address] [place], [place] Chloride [Moles/Vol] 102 mmol/L Normal 98-107 [facility] Comment on above: Performed By: #### C MP3, HEMDF, LIPA4, MG3, PCAL ####[address] Complete Urinalysison 2020 Appearance (U) Clear Normal Clear [facility] Comment on above: Result Comment: . Performed By: #### C UA2 ####[address] [place], [place] Bacteria LM.HPF (Urine sed) [#/Area] Negative Normal Negative [facility] Comment on above: Result Comment: . Performed By: #### C UA2 ####[address] [place], [place] Bilirubin,Urine Negative Normal Negative [facility] Comment on above: Result Comment: . Performed By: #### C UA2 ####[address] [place], [place] Cast, Hyaline Negative Normal Negative [facility] Comment on above: Result Comment: . Performed By: #### C UA2 ####[address] Color (U) Colorless Normal Lt. Yellow [facility] Comment on above: Result Comment: . Performed By: #### C UA2 ####[address], [place] Glucose Ql (U) Normal Normal Normal (<70) [facility] Comment on above: Result Comment: . Performed By: #### C UA2 ####[address] [place], [place] Ketone,Urine 40 mg/dL Abnormal Negative [facility] Comment on above: Result Comment: . Performed By: #### C UA2 ####[address] [place], [place] Leukocytes,Urine 75 Nesha/uL Abnormal Negative [facility] Comment on above: Result Comment: . Performed By: #### C UA2 ####[address] [place] Mucous Threads Few Normal Negative [facility] Comment on above: Result Comment: . Performed By: #### C UA2 ####[address] Nitrites,Urine Negative Normal Negative [facility] Comment on above: Result Comment: . Performed By: #### C UA2 ####[address] Occult Blood,Urine 0.2 mg/dL Abnormal Negative [facility] Comment on above: Result Comment: . Performed By: #### C UA2 ####[address] pH,Urine 6.5 Normal 5.0-8.0 [facility] Comment on above: Result Comment: . Performed By: #### C UA2 ####[address] RBC, Urine 11 - 25 Abnormal 0-2 [facility] Comment on above: Result Comment: . Performed By: #### C UA2 ####[address] Specific [place],Urine 1.008 Normal 1.005 - 1.030 [facility] Comment on above: Result Comment: . Performed By: #### C UA2 ####[address], [place] Squamous Epithelial 0 - 2 Normal 3-5 [facility] Comment on above: Result Comment: . Performed By: #### C UA2 ####[address] [place], [place] Total Protein,Urine Negative Normal Negative [facility] Comment on above: Result Comment: . Performed By: #### C UA2 ####[address] [place], [place] Urobilinogen,Urine Normal Normal Normal (0-1) [facility] Comment on above: Result Comment: . Performed By: #### C UA2 ####[address] [place], [place] WBC, Urine 3 - 5 Normal 0-5 [facility] Comment on above: Result Comment: . Performed By: #### C UA2 ####[address] Comprehensive Metabolic Pane [facility] 09-04-2021 Albumin [Mass/Vol] 4.8 g/dL 3.5 - 5.0 g/dL [facility] ALP (Bld) [Catalytic activity/Vol] 59 U/L 38 - 126 U/L [facility] Comment on above: Slightly hemolysed, interpret with caution. ALT [Catalytic activity/Vol] 16 U/L 0 - 34 U/L [facility] Comment on above: The ALT test is perf ormed by an updated assay method. Please note that the reference intervals have been changed and are now sex specific. Anion gap [Moles/Vol] 12 mmol/L 3 - 13 mmol/L [facility] AST [Catalytic activity/Vol] 37 U/L 15 - 46 U/L [facility] Comment on above: Slightly hemolysed, interpret with caution. Bilirubin [Mass/Vol] 0.8 mg/dL 0.2 - 1 .3 mg/dL [facility] Calcium [Mass/Vol] 9.6 mg/dL 8.4 - 10. 4 mg/dL [facility] Chloride [Moles/Vol] 102 mmol/L 98 - 10 7 mmol/L [facility] CO2 [Moles/Vol] 25 mmol/L 22 - 30 mmol/L [facility] Creatinine [Mass/Vol] 0.63 mg/dL 0.52 - 1.25 mg/dL [facility] EGFR IF NonAfrican Djiboutian >90.0 >60 mL/min [facility] Comment on above: KDIGO guidelines pro vide the following GFR categories: Stage GFR(ml/min/1.73 m2) Terms G1 >=90 Normal or high G2 60-89 Mildly decreased* G3a 45-59 Mildly to moderately decreased G3b 30-44 Moderately to severely decreased G4 15-29 Severely decreased G5 <15 Kidney failure *Relative to young adult level. In the absence of evidence of kidney damage, neither GFR category G1 nor G2 fulfill the criteria for CKD. The CKD-EPI equation is validated in individuals 18 years of age and older. Currently the best equation for estimating glomerular filtration rate (GFR) from serum creatinine in children is the Bedside Boyer equation. It is less accurate in patients with extremes of muscle mass, restriction of dietary protein, ingestion of creatine, extra-renal metabolism of creatinine, or treatment with medications that affect renal tubular creatinine secretion. Free PSA/Total PSA [Mass fraction] 8.7 g/dL High 6.3 - 8.2 g/dL [facility] GFR/1.73 sq M.predicted among blacks MDRD (S/P/Bld) [Vol rate/Area] mL/min/{1.73_m2} >60 mL/min [facility] Glucose [Mass/Vol] 102 mg/dL High 70 - 100 mg/dL [facility] Interpretation and review of laboratory results Abnormal [facility] Potassium [Moles/Vol] 4.0 mmol/L 3.5 - 5.1 mmol/L [facility] Comment on above: Slightly hemolysed, interpret with caution. 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: PASTORA : 2000 Requested By: ZIYAD SMITH Order Number: [id number] Toni MD: Cheko Johnson Measurements Intervals [place] Rate: 89 P: 72 SC: 134 QRS: 68 QRSD: 104 T: -3 QT: 366 QTc: 446 Interpretive Statements Sinus rhythm Electronically Signed On 09-04-2021 14:35:04 EST by Cheko Johnson [facility] Cheko Johnson MD - 09/04/2021 [facility] Test Date: 2021-09-03 Pat Name: ADDIS TORRES Department: [facility] Room: [facility] Gender: F Ornament Stapler: PASTORA : 2000 Requested By: ZIYAD SMITH Order Number: [id number] Reading MD: Cheko Johnson Measurements Intervals [place] Rate: 89 P: 72 SC: 134 QRS: 68 QRSD: 104 T: -3 QT: 366 QTc: 446 Interpretive Statements Sinus rhythm Electronically Signed On 09-04-2021 14:35:04 EST by Cheko Johnson [facility] Work Phone: EKG 12 Lead - Chest PainOrde red By: Cheko Johnson on 09-04-2021 [facility] Work Phone: Hemogram w/ Autodiffon 09-04 Abs Baso Cnt 0.0 10*3/uL Normal 0.0-0.2 [facility] Comment on above: Performed By: #### H EMDF, MG3, BMP3, PHOS3 ####[facility] [address] [place] [address] Abs Neutrophile Cnt 5.7 10*3/uL Normal 1.8-7.0 [facility] Comment on above: Performed By: #### H EMDF, MG3, BMP3, PHOS3 ####[facility] [address] [place] [address] Basophils/100 WBC (Bld) 0.5 % Normal 0.0-2.0 [facility] Comment on above: Performed By: #### H EMDF, MG3, BMP3, PHOS3 ####[facility] [id number] [place] [address] Eosinophils (Bld) [#/Vol] 0.0 10*3/uL Normal 0.0-0.5 [facility] Comment on above: Performed By: #### H EMDF, MG3, BMP3, PHOS3 ####[address] Eosinophils/100 WBC (Bld) 0.5 % Low 1.0-6.0 [facility] Comment on above: Performed By: #### H EMDF, MG3, BMP3, PHOS3 ####[address] Erythrocyte distribution width (RBC) [Ratio] 16.6 % High 11.5-14.5 [facility] Comment on above: Performed By: #### H EMDF, MG3, BMP3, PHOS3 ####[address] Granulocytes/100 WBC (Bld) 78.6 % Normal 40.0-80.0 [facility] Comment on above: Performed By: #### H EMDF, MG3, BMP3, PHOS3 ####[address] Hematocrit (Bld) [Volume fraction] 32.1 % Low 35.0-47.0 [facility] Comment on above: Performed By: #### H EMDF, MG3, BMP3, PHOS3 ####[address] Hemoglobin (Bld) [Mass/Vol] 10.1 g/dL Low 11.7-16.0 [facility] Comment on above: Performed By: #### H EMDF, MG3, BMP3, PHOS3 ####[address] Lymphocytes (Bld) [#/Vol] 1.0 10*3/uL Normal 1.0-4.3 [facility] Comment on above: Performed By: #### H EMDF, MG3, BMP3, PHOS3 ####[address] Lymphocytes/100 WBC (Bld) 13.3 % Low 20.0-40.0 [facility] Comment on above: Performed By: #### H EMDF, MG3, BMP3, PHOS3 ####[address] . [place], [place] MCH (RBC) [Entitic mass] 24.5 pg Low 26.0-34.0 [facility] Comment on above: Performed By: #### H EMDF, MG3, BMP3, PHOS3 ####[address] MCHC 31.5 % Low 32.0-36.0 [facility] Comment on above: Performed By: #### H EMDF, MG3, BMP3, PHOS3 ####[address] [place], [place] MCV (RBC) [Entitic vol] 77.8 fL Low 79.0-98.0 [facility] Comment on above: Performed By: #### H EMDF, MG3, BMP3, PHOS3 ####[address] Monocytes (Bld) [#/Vol] 0.5 10*3/uL Normal 0.0-0.8 [facility] Comment on above: Performed By: #### H EMDF, MG3, BMP3, PHOS3 ####[address] [place], [place] Monocytes/100 WBC (Bld) 7.1 % Normal 2.0-10.0 [facility] Comment on above: Performed By: #### H EMDF, MG3, BMP3, PHOS3 ####[address] Platelet mean volume (Bld) [Entitic vol] 7.3 fL Low 7.4-10.4 [facility] Comment on above: Performed By: #### H EMDF, MG3, BMP3, PHOS3 ####[address] [place], [place] Platelets (Bld) [#/Vol] 313 10*3/uL Normal 140-440 [facility] Comment on above: Performed By: #### H EMDF, MG3, BMP3, PHOS3 ####[address] [place], [place] RBC (Bld) [#/Vol] 4.13 10*6/uL Normal 3.80-5.20 [facility] Comment on above: Performed By: #### H EMDF, MG3, BMP3, PHOS3 ####[address] [place], [place] WBC (Bld) [#/Vol] 7.3 10*3/uL Normal 3.6-10.7 [facility] Comment on above: Performed By: #### H EMDF, MG3, BMP3, PHOS3 ####[address] Abs Baso Cnt 0.0 10*3/uL Normal 0.0-0.2 [facility] Comment on above: Performed By: #### C MP3, HEMDF, LIPA4, MG3, PCAL ####[address] [place], [place] Abs Neutrophile Cnt 6.3 10*3/uL Normal 1.8-7.0 [facility] Comment on above: Performed By: #### C MP3, HEMDF, LIPA4, MG3, PCAL ####[address] Basophils/100 WBC (Bld) 0.5 % Normal 0.0-2.0 [facility] Comment on above: Performed By: #### C MP3, HEMDF, LIPA4, MG3, PCAL ####[address] Eosinophils (Bld) [#/Vol] 0.1 10*3/uL Normal 0.0-0.5 [facility] Comment on above: Performed By: #### C MP3, HEMDF, LIPA4, MG3, PCAL ####[address] [address] Eosinophils/100 WBC (Bld) 0.7 % Low 1.0-6.0 [facility] Comment on above: Performed By: #### C MP3, HEMDF, LIPA4, MG3, PCAL ####[address] [place], [place] Erythrocyte distribution width (RBC) [Ratio] 16.9 % High 11.5-14.5 [facility] Comment on above: Performed By: #### C MP3, HEMDF, LIPA4, MG3, PCAL ####[address] Granulocytes/100 WBC (Bld) 83.9 % High 40.0-80.0 [facility] Comment on above: Performed By: #### C MP3, HEMDF, LIPA4, MG3, PCAL ####[address] Hematocrit (Bld) [Volume fraction] 36.6 % Normal 35.0-47.0 [facility] Comment on above: Performed By: #### C MP3, HEMDF, LIPA4, MG3, PCAL ####[address] Hemoglobin (Bld) [Mass/Vol] 11.7 g/dL Normal 11.7-16.0 [facility] Comment on above: Performed By: #### C MP3, HEMDF, LIPA4, MG3, PCAL ####[address] Lymphocytes (Bld) [#/Vol] 0.8 10*3/uL Low 1.0-4.3 [facility] Comment on above: Performed By: #### C MP3, HEMDF, LIPA4, MG3, PCAL ####[address] Lymphocytes/100 WBC (Bld) 10.7 % Low 20.0-40.0 [facility] Comment on above: Performed By: #### C MP3, HEMDF, LIPA4, MG3, PCAL ####[address] [place], [place] MCH (RBC) [Entitic mass] 24.7 pg Low 26.0-34.0 [facility] Comment on above: Performed By: #### C MP3, HEMDF, LIPA4, MG3, PCAL ####[facility] [place] MCHC 32.0 % Normal 32.0-36.0 [facility] Comment on above: Performed By: #### C MP3, HEMDF, LIPA4, MG3, PCAL ####[address] [place], [place] MCV (RBC) [Entitic vol] 77.2 fL Low 79.0-98.0 [facility] Comment on above: Performed By: #### C MP3, HEMDF, LIPA4, MG3, PCAL ####[address] [place], [place] Monocytes (Bld) [#/Vol] 0.3 10*3/uL Normal 0.0-0.8 [facility] Comment on above: Performed By: #### C MP3, HEMDF, LIPA4, MG3, PCAL ####[address] [place], [place] Monocytes/100 WBC (Bld) 4.2 % Normal 2.0-10.0 [facility] Comment on above: Performed By: #### C MP3, HEMDF, LIPA4, MG3, PCAL ####[address] [place], [place] Platelet mean volume (Bld) [Entitic vol] 7.4 fL Normal 7.4-10.4 [facility] Comment on above: Performed By: #### C MP3, HEMDF, LIPA4, MG3, PCAL ####[address] [place], [place] Platelets (Bld) [#/Vol] 382 10*3/uL Normal 140-440 [facility] Comment on above: Performed By: #### C MP3, HEMDF, LIPA4, MG3, PCAL ####[address] [place] RBC (Bld) [#/Vol] 4.74 10*6/uL Normal 3.80-5.20 [facility] Comment on above: Performed By: #### C MP3, HEMDF, LIPA4, MG3, PCAL ####[address] [place] WBC (Bld) [#/Vol] 7.5 10*3/uL Normal 3.6-10.7 [facility] Comment on above: Performed By: #### C MP3, HEMDF, LIPA4, MG3, PCAL ####[address] [place] Lipaseon 09-04-2021 Lipase [Catalytic activity/Vol] 83 U/L Normal 23-300 [facility] Comment on above: Performed By: #### C MP3, HEMDF, LIPA4, MG3, PCAL ####[address] [place] Lipase [Catalytic activity/Vol] 83 U/L 23 - 300 U/L [facility] Magnesiumon 09-04-2021 Magnesium [Mass/Vol] 2.1 mg/dL Normal 1.6-2.3 [facility] Comment on above: Performed By: #### H EMDF, MG3, BMP3, PHOS3 ####[address] [place] Magnesium [Mass/Vol] 2.1 mg/dL 1.6 - 2 .3 mg/dL [facility] Magnesium [Mass/Vol] 2.2 mg/dL Normal 1.6-2.3 [facility] Comment on above: Result Comment: Slig htly hemolysed, interpret with caution. Performed By: #### C MP3, HEMDF, LIPA4, MG3, PCAL ####[address] [place] Magnesium [Mass/Vol] 2.2 mg/dL 1.6 - 2 .3 mg/dL [facility] Comment on above: Slightly hemolysed, interpret with caution. No Panel Informationon 09-04 Test Performed by [facility], [facility] [address] [place], [place] [id number] [place] [address] - [facility] Test Performed by [facility], [address] [place] [address] [facility] Phosphoruson 09-04-2021 Phosphate [Mass/Vol] 3.9 mg/dL Normal 2.5-4.5 [facility] Comment on above: Performed By: #### H EMDF, MG3, BMP3, PHOS3 ####[address] [place], [place] Phosphate [Mass/Vol] 3.9 mg/dL 2.5 - 4 .5 mg/dL [facility] Procalcitoninon 09-04-2021 Procalcitonin 0.02 ng/mL Normal 0.00-0.09 [facility] Comment on above: Performed By: #### C MP3, HEMDF, LIPA4, MG3, PCAL ####[address] [place], [place] Interpretation See Below Normal [facility] Comment on above: Result Comment: PCT <0.50 = Low risk of severe sepsis and/or septic shock.PCT >2.00 = High risk of severe sepsis and/or septic shock. Performed By: #### C MP3, HEMDF, LIPA4, MG3, PCAL ####[address] Interpretation See Below [facility] Comment on above: PCT <0.50 = Low risk of severe sepsis and/or septic shock. PCT >2.00 = High risk of severe sepsis and/or septic shock. Procalcitonin 0.02 ng/mL 0.00 - 0.09 ng/mL [facility] Test Performed by [facility], [address] [place] [facility] [place] [address] [facility] Urinalysison 09-04-2021 Appearance (U) Clear Clear NA [facility] Comment on above: . Bacteria, UA Negative Negative /[HPF] [facility] Comment on above: . Bilirubin Urine Negative Negative mg/dL [facility] Comment on above: . Color (U) Colorless Lt. Yellow NA [facility] Comment on above: . Glucose, Ur Normal Normal (<70) mg/dL [facility] Comment on above: . Hyaline Casts, UA Negative Negative /[LPF] [facility] Comment on above: . Interpretation and review of laboratory results Abnormal [facility] Ketones Ql (U) 40 mg/dL Abnormal Negative [facility] Comment on above: . LEUKOCYTES, UA 75 Abnormal Negative Nesha/uL [facility] Comment on above: . Mucous Threads Few Negative /[LPF] [facility] Comment on above: . Nitrite, Urine Negative Negative NA [facility] Comment on above: . Occult Blood,Urine 0.2 mg/dL Abnormal Negative [facility] Comment on above: . pH (U) 6.5 [pH] [facility] Comment on above: . RBC, UA 11-25 Abnormal 0 - 2 /[HPF] [facility] Comment on above: . Specific [place], Urine 1.008 S [facility] Comment on above: . Squam Epithel, UA 0-2 3 - 5 /[HPF] [facility] Comment on above: . Total Protein, Urine Negative Negativ e mg/dL [facility] Comment on above: . Urobilinogen, Urine Normal Normal (0-1) mg/dL [facility] Comment on above: . WBC, UA 3-5 0 - 5 /[HPF] [facility] Comment on above: . Test Performed by [id number] [place] [address] [facility] XR ABDOMEN (KUB) (SINGLE AP VIEW)on 09-04-2021 Patient Name: ADDIS TORRES Diagnostic Radiology ACCESSION EXAM DATE/TIME PROCEDURE ORDERING PROVIDER [id number] 09/04/2021 04:24 EST CR Abdomen AP DO CUVEA MICHELLE CPT code 84331 Reason For Exam (CR Abdomen AP) abdominal pain Report ABDOMEN: CLINICAL INDICATION: Abdominal pain. TECHNIQUE: Supine abdomen and pelvis COMPARISON: 02/26/2021 FINDINGS: The bowel gas pattern is unremarkable. No abnormal soft tissue calcifications are noted. Left ureteral stent is again noted. S-shaped scoliosis is noted. IMPRESSION: Ureteral stent in adequate position. No ileus or obstruction Report Dictated on --- Final --- Dictated: 09/04/2021 4:44 am Dictating Physician: MD OSBORN JEFFREY Signed Date and Time: 09/04/2021 4:45 am Signed by: MD OSBORN JEFFREY Transcribed Date and Time: 09/04/2021 4:44 [facility] Jovanni Osborn MD - 09/04/2021 Patient Name: ADDIS TORRES Diagnostic Radiology ACCESSION EXAM DATE/TIME PROCEDURE ORDERING PROVIDER [id number] 09/04/2021 04:24 EST CR Abdomen AP DO CUEVA MICHELLE CPT code 66684 Reason For Exam (CR Abdomen AP) abdominal pain Report ABDOMEN: CLINICAL INDICATION: Abdominal pain. TECHNIQUE: Supine abdomen and pelvis COMPARISON: 02/26/2021 FINDINGS: The bowel gas pattern is unremarkable. No abnormal soft tissue calcifications are noted. Left ureteral stent is again noted. S-shaped scoliosis is noted. IMPRESSION: Ureteral stent in adequate position. No ileus or obstruction Report Dictated on --- Final --- Dictated: 09/04/2021 4:44 am Dictating Physician: MD OSBORN JEFFREY Signed Date and Time: 09/04/2021 4:45 am Signed by: MD OSBORN JEFFREY Transcribed Date and Time: 09/04/2021 4:44 [facility] Work Phone: Radiology Study observation (narrative) [facility] Work Phone: XR ABDOMEN (KUB) (SINGLE AP VIEW)Ordered By: Jovanni Osborn on 09-04-2021 [facility] Work Phone: Add On Lab Teston 09-03-2021 Add On Accepted [facility] Comment on above: Specimen available & acceptable for analysis. Test Performed by [facility], [address] [place] [id number] [facility] Add on test from HISon 09-03 Add on test from HIS Accepted Normal [facility] Comment on above: Result Comment: Spec imen available & acceptable for analysis. Performed By: #### A DDON ####[address] [place], [place] Comp Metabolic Panelon 09-03 Calcium [Mass/Vol] 9.9 mg/dL Normal 8.4-10.4 [facility] Comment on above: Performed By: #### C MP3, LACT3, HEMDF ####[address] [place] ALP [Catalytic activity/Vol] 78 U/L Normal 38-126 [facility] Comment on above: Performed By: #### C MP3, LACT3, HEMDF ####[address] [place] ALT [Catalytic activity/Vol] 16 U/L Normal 0-34 [facility] Comment on above: Result Comment: The ALT test is performed by an updated assay method.Please note that the reference intervals have beenchanged and are now sex specific. Performed By: #### C MP3, LACT3, HEMDF ####[address] [place] Anion gap [Moles/Vol] 11 mmol/L Normal 3-13 [facility] Comment on above: Performed By: #### C MP3, LACT3, HEMDF ####[address] [place] AST [Catalytic activity/Vol] 29 U/L Normal 15-46 [facility] Comment on above: Performed By: #### C MP3, LACT3, HEMDF ####[address] [place] Bilirubin [Mass/Vol] 0.5 mg/dL Normal 0.2-1.3 [facility] Comment on above: Performed By: #### C MP3, LACT3, HEMDF ####[address] [place] CO2 [Moles/Vol] 24 mmol/L Normal 22-30 [facility] Comment on above: Performed By: #### C MP3, LACT3, HEMDF ####[facility] [place] [address] Glucose [Mass/Vol] 100 mg/dL Normal 70-100 [facility] Comment on above: Performed By: #### C MP3, LACT3, HEMDF ####[facility] [place] [address] Protein [Mass/Vol] 8.7 g/dL High 6.3-8.2 [facility] Comment on above: Performed By: #### C MP3, LACT3, HEMDF ####[address] [place] [address] Urea nitrogen [Mass/Vol] 9 mg/dL Normal 9-20 [facility] Comment on above: Performed By: #### C MP3, LACT3, HEMDF ####[address] [place] [address] Creatinine [Mass/Vol] 0.57 mg/dL Normal 0.52-1.25 [facility] Comment on above: Performed By: #### C MP3, LACT3, HEMDF ####[id number] [place] [address] eGFR OTHER > 90.0 Normal >60 [facility] Comment on above: Result Comment: KDIG O guidelines provide the following GFR categories:Stage GFR(ml/min/1.73 m2) TermsG1 >=90 Normal or highG2 60-89 Mildly decreased*G3a 45-59 Mildly to moderately [id number] 30-44 Moderately to severely decreasedG4 15-29 Severely decreasedG5 <15 Kidney failure*Relative to young adult level.In the absence of evidence of kidney damage, neither GFRcategory G1 nor G2 fulfill the criteria for CKD.The CKD-EPI equation is validated in individuals 18 yearsof age and older. Currently the best equation forestimating glomerular filtration rate (GFR) from serumcreatinine in children is the Bedside Boyer equation.It is less accurate in patients with extremes of musclemass, restriction of dietary protein, ingestion of creatine,extra-renal metabolism of creatinine, or treatment withmedications that affect renal tubular creatinine secretion. Performed By: #### C MP3, LACT3, HEMDF ####[address] [place], [place] GFR/1.73 sq M.predicted among blacks MDRD (S/P/Bld) [Vol rate/Area] mL/min/{1.73_m2} Normal >60 [facility] Comment on above: Performed By: #### C MP3, LACT3, HEMDF ####[address] [place], [place] Albumin [Mass/Vol] 4.7 g/dL Normal 3.5-5.0 [facility] Comment on above: Performed By: #### C MP3, LACT3, HEMDF ####[address] [place], [place] Chloride [Moles/Vol] 105 mmol/L Normal 98-107 [facility] Comment on above: Performed By: #### C MP3, LACT3, HEMDF ####[address] [place], [place] Potassium [Moles/Vol] 3.3 mmol/L Low 3.5-5.1 [facility] Comment on above: Performed By: #### C MP3, LACT3, HEMDF ####[address] [place], [place] Sodium [Moles/Vol] 140 mmol/L Normal 135-145 [facility] Comment on above: Performed By: #### C MP3, LACT3, HEMDF ####[address] [place], [place] Complete Urinalysison 2020 Appearance (U) Ex.Turbid Abnormal Clear [facility] Comment on above: Result Comment: . Performed By: #### C /UR, CUA2 ####[address] [place], [place] Bacteria Many Abnormal Negative [facility] Comment on above: Result Comment: . Performed By: #### C /UR, CUA2 ####[address] [place], [place] Bilirubin,Urine Negative Normal Negative [facility] Comment on above: Result Comment: . Performed By: #### C /UR, CUA2 ####[facility] [id number] [place], [place] Cast, Hyaline Negative Normal Negative [facility] Comment on above: Result Comment: . Performed By: #### C /UR, CUA2 ####[facility] [id number] [place], [place] Color (U) Yellow Normal Lt. Yellow [facility] Comment on above: Result Comment: . Performed By: #### C /UR, CUA2 ####[address] [place], [place] Glucose Ql (U) Normal Normal Normal (<70) [facility] Comment on above: Result Comment: . Performed By: #### C /UR, CUA2 ####[address] [place], [place] Ketone,Urine 100 mg/dL Abnormal Negative [facility] Comment on above: Result Comment: . Performed By: #### C /UR, CUA2 ####[facility] [id number] [place], [place] Leukocytes,Urine 500 Nesha/uL Abnormal Negative [facility] Comment on above: Result Comment: . Performed By: #### C /UR, CUA2 ####[address] [place], [place] Mucous Threads Few Normal Negative [facility] Comment on above: Result Comment: . Performed By: #### C /UR, CUA2 ####[facility] [id number] [place], [place] Nitrites,Urine Negative Normal Negative [facility] Comment on above: Result Comment: . Performed By: #### C /UR, CUA2 ####[address] [place], [place] Occult Blood,Urine 0.5 mg/dL Abnormal Negative [facility] Comment on above: Result Comment: . Performed By: #### C /UR, CUA2 ####[facility] [id number] [place], [place] pH,Urine 8.0 Normal 5.0-8.0 [facility] Comment on above: Result Comment: . Performed By: #### C /UR, CUA2 ####[address] Protein (U) [Mass/Vol] 300 mg/dL Abnormal Negative [facility] Comment on above: Result Comment: . Performed By: #### C /UR, CUA2 ####[address] RBC LM.HPF (Urine sed) [#/Area] /[HPF] Abnormal 0-2 [facility] Comment on above: Result Comment: . Performed By: #### C /UR, CUA2 ####[address] Specific [place],Urine 1.023 Normal 1.005 - 1.030 [facility] Comment on above: Result Comment: . Performed By: #### C /UR, CUA2 ####[address] Squamous Epithelial 11 - 25 Abnormal 3-5 [facility] Comment on above: Result Comment: . Performed By: #### C /UR, CUA2 ####[address] Urobilinogen,Urine Normal Normal Normal (0-1) [facility] Comment on above: Result Comment: . Performed By: #### C /UR, CUA2 ####[address] WBC LM.HPF (Urine sed) [#/Area] /[HPF] Abnormal 0-5 [facility] Comment on above: Result Comment: . Performed By: #### C /UR, CUA2 ####[address] ED Provider Noteon ED Provider Note Normal [facility] Hemogram w/ Autodiffon 09-03 Abs Baso Cnt 0.1 10*3/uL Normal 0.0-0.2 [facility] Comment on above: Performed By: #### C MP3, LACT3, HEMDF ####[address] [place], [place] Abs Neutrophile Cnt 7.6 10*3/uL High 1.8-7.0 [facility] Comment on above: Performed By: #### C MP3, LACT3, HEMDF ####[address] Basophils/100 WBC (Bld) 0.7 % Normal 0.0-2.0 [facility] Comment on above: Performed By: #### C MP3, LACT3, HEMDF ####[address] Eosinophils (Bld) [#/Vol] 0.1 10*3/uL Normal 0.0-0.5 [facility] Comment on above: Performed By: #### C MP3, LACT3, HEMDF ####[address] Eosinophils/100 WBC (Bld) 1.0 % Normal 1.0-6.0 [facility] Comment on above: Performed By: #### C MP3, LACT3, HEMDF ####[address] Erythrocyte distribution width (RBC) [Ratio] 17.3 % High 11.5-14.5 [facility] Comment on above: Performed By: #### C MP3, LACT3, HEMDF ####[address] Granulocytes/100 WBC (Bld) 77.2 % Normal 40.0-80.0 [facility] Comment on above: Performed By: #### C MP3, LACT3, HEMDF ####[address] Hematocrit (Bld) [Volume fraction] 37.5 % Normal 35.0-47.0 [facility] Comment on above: Performed By: #### C MP3, LACT3, HEMDF ####[address] [place], [place] Hemoglobin (Bld) [Mass/Vol] 12.0 g/dL Normal 11.7-16.0 [facility] Comment on above: Performed By: #### C MP3, LACT3, HEMDF ####[address] [place], [place] Lymphocytes (Bld) [#/Vol] 1.5 10*3/uL Normal 1.0-4.3 [facility] Comment on above: Performed By: #### C MP3, LACT3, HEMDF ####[address] [place], [place] Lymphocytes/100 WBC (Bld) 15.3 % Low 20.0-40.0 [facility] Comment on above: Performed By: #### C MP3, LACT3, HEMDF ####[address] [place], [place] MCH (RBC) [Entitic mass] 24.9 pg Low 26.0-34.0 [facility] Comment on above: Performed By: #### C MP3, LACT3, HEMDF ####[address] [place] MCHC 32.1 % Normal 32.0-36.0 [facility] Comment on above: Performed By: #### C MP3, LACT3, HEMDF ####[address] [place], [place] MCV (RBC) [Entitic vol] 77.6 fL Low 79.0-98.0 [facility] Comment on above: Performed By: #### C MP3, LACT3, HEMDF ####[address] [place], [place] Monocytes (Bld) [#/Vol] 0.6 10*3/uL Normal 0.0-0.8 [facility] Comment on above: Performed By: #### C MP3, LACT3, HEMDF ####[address] Monocytes/100 WBC (Bld) 5.8 % Normal 2.0-10.0 [facility] Comment on above: Performed By: #### C MP3, LACT3, HEMDF ####[address] [place], [place] Platelet mean volume (Bld) [Entitic vol] 7.2 fL Low 7.4-10.4 [facility] Comment on above: Performed By: #### C MP3, LACT3, HEMDF ####[address] [place], [place] Platelets (Bld) [#/Vol] 368 10*3/uL Normal 140-440 [facility] Comment on above: Performed By: #### C MP3, LACT3, HEMDF ####[address] RBC (Bld) [#/Vol] 4.83 10*6/uL Normal 3.80-5.20 [facility] Comment on above: Performed By: #### C MP3, LACT3, HEMDF ####[address] [place], [place] WBC (Bld) [#/Vol] 9.9 10*3/uL Normal 3.6-10.7 [facility] Comment on above: Performed By: #### C MP3, LACT3, HEMDF ####[address] [place], [place] Lactic Acidon 09-03-2021 Lactate [Moles/Vol] 1.5 mmol/L Normal 0.7-2.0 [facility] Comment on above: Performed By: #### C MP3, LACT3, HEMDF ####[address] US RETROPERITONEAL LIMITEDon 09-03-2021 Patient Name: ADDIS TORRES Ultrasound ACCESSION EXAM DATE/TIME PROCEDURE ORDERING PROVIDER [id number] 09/03/2021 00:21 EST US Retroperitoneal HAVEESAU DIAZ Limited CPT code 96915 Reason For Exam (US Retroperitoneal Limited) L flank pain, hx stent placement, hx pyelo Report US RETROPERITONEAL COMPLETE CLINICAL INDICATION: Left flank pain with history of stent placement and pyelonephritis with endometrial carcinoma and ureteral injury during surgery TECHNIQUE: Complete ultrasound of the genitourinary retroperitoneal structures including color flow imaging and bladder COMPARISON: CT from eight days ago FINDINGS: RIGHT KIDNEY: Size: 10.1 x 5.6 x 4.8 cm Echogenicity: normal Parenchymal thickness: normal Contour: smooth Pelvicalyceal dilatation: none Calculus: none Mass: none Cyst: none LEFT KIDNEY: Size: 10.6 x 5.5 x 5.4 cm Echogenicity: normal Parenchymal thickness: normal Contour: smooth Pelvicalyceal dilatation: No dilatation is noted, however, an echogenic stent is identified within the renal pelvis extending to the urinary bladder. Calculus: none Mass: none Cyst: none Bladder: Stent is noted IMPRESSION: 1. Left ureteral stent identified without hydronephrosis 2. No right renal abnormality. Ultrasound Report Report Dictated on --- Final --- Dictated: 09/03/2021 0:55 am Dictating Physician: MD OSBORN JEFFREY Signed Date and Time: 09/03/2021 0:57 am Signed by: MD OSBORN JEFFREY Transcribed Date and Time: 09/03/2021 0:[address] [facility] Jovanni Osborn MD - 09/03/2021 Patient Name: ADDIS TORRES Ultrasound ACCESSION EXAM DATE/TIME PROCEDURE ORDERING PROVIDER [id number] 09/03/2021 00:21 EST US Retroperitoneal ESAU CAIN Limited CPT code 46250 Reason For Exam (US Retroperitoneal Limited) L flank pain, hx stent placement, hx pyelo Report US RETROPERITONEAL COMPLETE CLINICAL INDICATION: Left flank pain with history of stent placement and pyelonephritis with endometrial carcinoma and ureteral injury during surgery TECHNIQUE: Complete ultrasound of the genitourinary retroperitoneal structures including color flow imaging and bladder COMPARISON: CT from eight days ago FINDINGS: RIGHT KIDNEY: Size: 10.1 x 5.6 x 4.8 cm Echogenicity: normal Parenchymal thickness: normal Contour: smooth Pelvicalyceal dilatation: none Calculus: none Mass: none Cyst: none LEFT KIDNEY: Size: 10.6 x 5.5 x 5.4 cm Echogenicity: normal Parenchymal thickness: normal Contour: smooth Pelvicalyceal dilatation: No dilatation is noted, however, an echogenic stent is identified within the renal pelvis extending to the urinary bladder. Calculus: none Mass: none Cyst: none Bladder: Stent is noted IMPRESSION: 1. Left ureteral stent identified without hydronephrosis 2. No right renal abnormality. Ultrasound Report Report Dictated on --- Final --- Dictated: 09/03/2021 0:55 am Dictating Physician: MD OSBORN JEFFREY Signed Date and Time: 09/03/2021 0:57 am Signed by: MD OSBORN JEFFREY Transcribed Date and Time: 09/03/2021 0:55 [facility] Work Phone: US RETROPERITONEAL LIMITEDOr dered By: Jovanni Osborn on 09-03-2021 [facility] Work Phone: US Retroperitoneal Limitedon 09-03-2021 US Retroperitoneal Limited Normal [facility] Urinalysison 09-03-2021 Appearance (U) Ex.Turbid Abnormal Clear NA [facility] Comment on above: . Bacteria, UA Many Abnormal Negative /[HPF] [facility] Comment on above: . Bilirubin Urine Negative Negative mg/dL [facility] Comment on above: . Color (U) Yellow Lt. Yellow NA [facility] Comment on above: . Glucose, Ur Normal Normal (<70) mg/dL [facility] Comment on above: . Hyaline Casts, UA Negative Negative /[LPF] [facility] Comment on above: . Interpretation and review of laboratory results Abnormal [facility] Ketones Ql (U) 100 mg/dL Abnormal Negative [facility] Comment on above: . LEUKOCYTES, UA 500 Abnormal Negative Nesha/uL [facility] Comment on above: . Mucous Threads Few Negative /[LPF] [facility] Comment on above: . Nitrite, Urine Negative Negative NA [facility] Comment on above: . Occult Blood,Urine 0.5 mg/dL Abnormal Negative [facility] Comment on above: . pH (U) 8.0 [pH] [facility] Comment on above: . Protein (U) [Mass/Vol] 300 mg/dL Abnormal Negative [facility] Comment on above: . RBC (U) [#/Vol] /uL Abnormal 0 - 2 /[HPF] [facility] Comment on above: . Specific [place], Urine 1.023 S [facility] Comment on above: . Squam Epithel, UA 11-25 Abnormal 3 - 5 /[HPF] [facility] Comment on above: . Urobilinogen, Urine Normal Normal (0-1) mg/dL [facility] Comment on above: . WBC, UA >100 Abnormal 0 - 5 /[HPF] [facility] Comment on above: . Test Performed by [facility], [address] [place] [address] [facility] Basic Metabolic Panelon 12- Anion gap [Moles/Vol] 10 mmol/L Normal 3-13 [facility] Comment on above: Performed By: #### B MP3, HEMOG ####[address] [place], [place] Calcium [Mass/Vol] 9.3 mg/dL Normal 8.4-10.4 [facility] Comment on above: Performed By: #### Rubén MP3, HEMOG ####[address] [place], [place] CO2 [Moles/Vol] 27 mmol/L Normal 22-30 [facility] Comment on above: Performed By: #### B MP3, HEMOG ####[address] [place], [place] Glucose [Mass/Vol] 92 mg/dL Normal 70-100 [facility] Comment on above: Performed By: #### B MP3, HEMOG ####[address] [place] [address] Urea nitrogen [Mass/Vol] 10 mg/dL Normal 9-20 [facility] Comment on above: Performed By: #### B MP3, HEMOG ####[address] [place] [address] Creatinine [Mass/Vol] 0.54 mg/dL Normal 0.52-1.25 [facility] Comment on above: Performed By: #### B MP3, HEMOG ####[facility] [id number] [place] [address] eGFR OTHER > 90.0 Normal >60 [facility] Comment on above: Result Comment: KDIG O guidelines provide the following GFR categories:Stage GFR(ml/min/1.73 m2) TermsG1 >=90 Normal or highG2 60-89 Mildly decreased*G3a 45-59 Mildly to moderately [id number] 30-44 Moderately to severely decreasedG4 15-29 Severely decreasedG5 <15 Kidney failure*Relative to young adult level.In the absence of evidence of kidney damage, neither GFRcategory G1 nor G2 fulfill the criteria for CKD.The CKD-EPI equation is validated in individuals 18 yearsof age and older. Currently the best equation forestimating glomerular filtration rate (GFR) from serumcreatinine in children is the Bedside Boyer equation.It is less accurate in patients with extremes of musclemass, restriction of dietary protein, ingestion of creatine,extra-renal metabolism of creatinine, or treatment withmedications that affect renal tubular creatinine secretion. Performed By: #### B MP3, HEMOG ####[facility] [id number], [place] GFR/1.73 sq M.predicted among blacks MDRD (S/P/Bld) [Vol rate/Area] mL/min/{1.73_m2} Normal >60 [facility] Comment on above: Performed By: #### B MP3, HEMOG ####[facility] [id number], [place] Chloride [Moles/Vol] 105 mmol/L Normal 98-107 [facility] Comment on above: Performed By: #### B MP3, HEMOG ####[facility] [id number], [place] Potassium [Moles/Vol] 3.3 mmol/L Low 3.5-5.1 [facility] Comment on above: Performed By: #### B MP3, HEMOG ####[address] [place] Sodium [Moles/Vol] 142 mmol/L Normal 135-145 [facility] Comment on above: Performed By: #### B MP3, HEMOG ####[address] [place] [address] Anion gap [Moles/Vol] 10 mmol/L 3 - 13 mmol/L [facility] Work Phone: Calcium [Mass/Vol] 9.3 mg/dL 8.4 - 10. 4 mg/dL [facility] Work Phone: [phone] Chloride [Moles/Vol] 105 mmol/L 98 - 10 7 mmol/L [facility] Work Phone: [phone] CO2 [Moles/Vol] 27 mmol/L 22 - 30 mmol/L [facility] Work Phone: [phone] Creatinine [Mass/Vol] 0.54 mg/dL 0.52 - 1.25 mg/dL [facility] Work Phone: EGFR IF NonAfrican [place]ian >90.0 >60 mL/min [facility] Work Phone: Comment on above: KDIGO guidelines pro vide the following GFR categories: Stage GFR(ml/min/1.73 m2) Terms G1 >=90 Normal or high G2 60-89 Mildly decreased* G3a 45-59 Mildly to moderately decreased G3b 30-44 Moderately to severely decreased G4 15-29 Severely decreased G5 <15 Kidney failure *Relative to young adult level. In the absence of evidence of kidney damage, neither GFR category G1 nor G2 fulfill the criteria for CKD. The CKD-EPI equation is validated in individuals 18 years of age and older. Currently the best equation for estimating glomerular filtration rate (GFR) from serum creatinine in children is the Bedside Boyer equation. It is less accurate in patients with extremes of muscle mass, restriction of dietary protein, ingestion of creatine, extra-renal metabolism of creatinine, or treatment with medications that affect renal tubular creatinine secretion. GFR/1.73 sq M.predicted among blacks MDRD (S/P/Bld) [Vol rate/Area] mL/min/{1.73_m2} >60 mL/min [facility] Work Phone: Glucose [Mass/Vol] 92 mg/dL 70 - 100 mg/dL [facility] Work Phone: Interpretation and review of laboratory results Abnormal [facility] Work Phone: [phone] Potassium [Moles/Vol] 3.3 mmol/L Low 3.5 - 5.1 mmol/L [facility] Work Phone: [phone] Sodium [Moles/Vol] 142 mmol/L 135 - 145 mmol/L [email or web address] Work Phone: 1 Urea nitrogen (BldV) [Mass/Vol] 10 mg/dL 9 - 20 mg/dL [email or web address] Work Phone: 1 Test Performed by [id number] [place] [address] LAB [email or web address] Work Phone: 1 CBCon 09-02-2021 Hematocrit (Bld) [Volume fraction] 33.9 % Low 35.0 - 47.0 % [email or web address] Work Phone: [phone] Hemoglobin.gastrointesti nal spec 1 Ql (Stl) 10.7 g/dL Low 11.7 - 16.0 g/dL [email or web address] Work Phone: 1 Interpretation and review of laboratory results Abnormal [email or web address] Work Phone: [phone] MCH (RBC) [Entitic mass] 24.5 pg Low 26. 0 - 34.0 pg [email or web address] Work Phone: MCHC (RBC) [Mass/Vol] 31.4 % Low 32.0 - 36.0 % [email or web address] Work Phone: MCV (RBC) [Entitic vol] 77.9 fL Low 79.0 - 98.0 fL [email or web address] Work Phone: 1 Platelet distribution width (Bld) [Ratio] 17.3 % High 11.5 - 14.5 % [email or web address] Work Phone: [phone] Platelet mean volume (Bld) [Entitic vol] 7.5 fL 7.4 - 10.4 fL [email or web address] Work Phone: [phone] Platelets (Bld) [#/Vol] 323 10*3/uL 140 - 440 10*3/uL [facility] Work Phone: [phone] RBC (Bld) [#/Vol] 4.35 10*6/uL 3.80 - 5.20 10*6/uL [facility] Work Phone: WBC (Bld) [#/Vol] 6.5 10*3/uL 3.6 - 10.7 10*3/uL [facility] Work Phone: Test Performed by [facility], [address] [place] [id number] [facility] Work Phone: Comprehensive Metabolic Pane gilberto 09-02-2021 Albumin [Mass/Vol] 4.7 g/dL 3.5 - 5.0 g/dL [facility] ALP (Bld) [Catalytic activity/Vol] 78 U/L 38 - 126 U/L [facility] ALT [Catalytic activity/Vol] 16 U/L 0 - 34 U/L [facility] Comment on above: The ALT test is perf ormed by an updated assay method. Please note that the reference intervals have been changed and are now sex specific. Anion gap [Moles/Vol] 11 mmol/L 3 - 13 mmol/L [facility] AST [Catalytic activity/Vol] 29 U/L 15 - 46 U/L [facility] Bilirubin [Mass/Vol] 0.5 mg/dL 0.2 - 1 .3 mg/dL [facility] Calcium [Mass/Vol] 9.9 mg/dL 8.4 - 10. 4 mg/dL [facility] Chloride [Moles/Vol] 105 mmol/L 98 - 10 7 mmol/L [facility] CO2 [Moles/Vol] 24 mmol/L 22 - 30 mmol/L [facility] Creatinine [Mass/Vol] 0.57 mg/dL 0.52 - 1.25 mg/dL [facility] EGFR IF NonAfrican [place]ian >90.0 >60 mL/min [facility] Comment on above: KDIGO guidelines pro vide the following GFR categories: Stage GFR(ml/min/1.73 m2) Terms G1 >=90 Normal or high G2 60-89 Mildly decreased* G3a 45-59 Mildly to moderately decreased G3b 30-44 Moderately to severely decreased G4 15-29 Severely decreased G5 <15 Kidney failure *Relative to young adult level. In the absence of evidence of kidney damage, neither GFR category G1 nor G2 fulfill the criteria for CKD. The CKD-EPI equation is validated in individuals 18 years of age and older. Currently the best equation for estimating glomerular filtration rate (GFR) from serum creatinine in children is the Bedside Boyer equation. It is less accurate in patients with extremes of muscle mass, restriction of dietary protein, ingestion of creatine, extra-renal metabolism of creatinine, or treatment with medications that affect renal tubular creatinine secretion. Free PSA/Total PSA [Mass fraction] 8.7 g/dL High 6.3 - 8.2 g/dL [facility] GFR/1.73 sq M.predicted among blacks MDRD (S/P/Bld) [Vol rate/Area] mL/min/{1.73_m2} >60 mL/min [facility] Glucose [Mass/Vol] 100 mg/dL 70 - 100 mg/dL [facility] Interpretation and review of laboratory results Abnormal [facility] Potassium [Moles/Vol] 3.3 mmol/L Low 3.5 - 5.1 mmol/L [facility] Sodium [Moles/Vol] 140 mmol/L 135 - 145 mmol/L [facility] Urea nitrogen (BldV) [Mass/Vol] 9 mg/dL 9 - 20 mg/dL [facility] Test Performed by [id number] [place] [address] LAB [facility] ED Provider Noteon ED Provider Note Normal [facility] Hemogramon 09-02-2021 Erythrocyte distribution width (RBC) [Ratio] 17.3 % High 11.5-14.5 [facility] Comment on above: Performed By: #### B MP3, HEMOG ####[address] [place], [place] Hematocrit (Bld) [Volume fraction] 33.9 % Low 35.0-47.0 [facility] Comment on above: Performed By: #### Rubén MP3, HEMOG ####[address] [place], [place] Hemoglobin (Bld) [Mass/Vol] 10.7 g/dL Low 11.7-16.0 [facility] Comment on above: Performed By: #### Rubén MP3, HEMOG ####[address] [place], [place] MCH (RBC) [Entitic mass] 24.5 pg Low 26.0-34.0 [facility] Comment on above: Performed By: #### B MP3, HEMOG ####[address] [place], [place] MCHC 31.4 % Low 32.0-36.0 [facility] Comment on above: Performed By: #### B MP3, HEMOG ####[address] [place], [place] MCV (RBC) [Entitic vol] 77.9 fL Low 79.0-98.0 [facility] Comment on above: Performed By: #### B MP3, HEMOG ####[address] [place], [place] Platelet mean volume (Bld) [Entitic vol] 7.5 fL Normal 7.4-10.4 [facility] Comment on above: Performed By: #### B MP3, HEMOG ####[address] [place], [place] Platelets (Bld) [#/Vol] 323 10*3/uL Normal 140-440 [facility] Comment on above: Performed By: #### B MP3, HEMOG ####[address] [place], [place] RBC (Bld) [#/Vol] 4.35 10*6/uL Normal 3.80-5.20 [facility] Comment on above: Performed By: #### B MP3, HEMOG ####[address] [place], [place] WBC (Bld) [#/Vol] 6.5 10*3/uL Normal 3.6-10.7 [facility] Comment on above: Performed By: #### B MP3, HEMOG ####[address] [place], [place] Hemogram (CBC) w/Auto Diffon 09-02-2021 Absolute Baso # 0.1 10*3/uL 0.0 - 0.2 10*3/uL [facility] Absolute Neut # 7.6 10*3/uL High 1.8 - 7.0 10*3/uL [facility] Basophils/100 WBC (Bld) 0.7 % 0.0 - 2.0 % [facility] Eosinophils (Bld) [#/Vol] 0.1 10*3/uL 0.0 - 0.5 10*3/uL [facility] Eosinophils/100 WBC (Bld) 1.0 % 1.0 - 6.0 % [facility] Granulocytes/100 WBC (Bld) 77.2 % 40.0 - 80.0 % [facility] Hematocrit (Bld) [Volume fraction] 37.5 % 35.0 - 47.0 % [facility] Hemoglobin.gastrointesti nal spec 1 Ql (Stl) 12.0 g/dL 11.7 - 16.0 g/dL [facility] Interpretation and review of laboratory results Abnormal [facility] Lymphocytes (Bld) [#/Vol] 1.5 10*3/uL 1.0 - 4.3 10*3/uL [facility] Lymphocytes/100 WBC (Bld) 15.3 % Low 20.0 - 40.0 % [facility] MCH (RBC) [Entitic mass] 24.9 pg Low 26. 0 - 34.0 pg [facility] MCHC (RBC) [Mass/Vol] 32.1 % 32.0 - 36.0 % [facility] MCV (RBC) [Entitic vol] 77.6 fL Low 79.0 - 98.0 fL [facility] Monocytes (Bld) [#/Vol] 0.6 10*3/uL 0.0 - 0.8 10*3/uL [facility] Monocytes/100 WBC (Bld) 5.8 % 2.0 - 10.0 % [facility] Platelet distribution width (Bld) [Ratio] 17.3 % High 11.5 - 14.5 % [facility] Platelet mean volume (Bld) [Entitic vol] 7.2 fL Low 7.4 - 10.4 fL [facility] Platelets (Bld) [#/Vol] 368 10*3/uL 140 - 440 10*3/uL [facility] RBC (Bld) [#/Vol] 4.83 10*6/uL 3.80 - 5.20 10*6/uL [facility] WBC (Bld) [#/Vol] 9.9 10*3/uL 3.6 - 10.7 10*3/uL [facility] Test Performed by [facility], [facility] [place] [address] [facility] Lactic Acid, Plasmaon 2020 Lactate [Moles/Vol] 1.5 mmol/L 0.7 - 2. 0 mmol/L [facility] Test Performed by [facility], [facility] [place] [address] [facility] US RETROPERITONEAL LIMITEDon 09-02-2021 Radiology Study observation (narrative) [facility] Work Phone: Procalcitoninon 08-28-2021 Procalcitonin 0.37 ng/mL High 0.00-0.09 [facility] Comment on above: Performed By: #### M G3, BMP3M, PCAL ####[place] [address] [place] [address] Basic Metabolic Panelon 12-2 Anion gap [Moles/Vol] 9 mmol/L Normal 3-13 [facility] Comment on above: Performed By: #### M G3, BMP3M, PCAL ####[facility] [id number] [place] [address] Calcium [Mass/Vol] 8.8 mg/dL Normal 8.4-10.4 [facility] Comment on above: Performed By: #### M G3, BMP3M, PCAL ####[facility] [id number] [place] [address] CO2 [Moles/Vol] 22 mmol/L Normal 22-30 [facility] Comment on above: Performed By: #### M G3, BMP3M, PCAL ####[facility] [address] [place] [address] Glucose [Mass/Vol] 103 mg/dL High 70-100 [facility] Comment on above: Performed By: #### M G3, BMP3M, PCAL ####[facility] [address] [facility] [place] [address] Urea nitrogen [Mass/Vol] mg/dL Low 9-20 [facility] Comment on above: Performed By: #### M G3, BMP3M, PCAL ####[address] [place] Creatinine [Mass/Vol] 0.47 mg/dL Low 0.52-1.25 [facility] Comment on above: Performed By: #### M G3, BMP3M, PCAL ####[address] [place] eGFR OTHER > 90.0 Normal >60 [facility] Comment on above: Result Comment: KDIG O guidelines provide the following GFR categories:Stage GFR(ml/min/1.73 m2) TermsG1 >=90 Normal or highG2 60-89 Mildly decreased*G3a 45-59 Mildly to moderately [id number] 30-44 Moderately to severely decreasedG4 15-29 Severely decreasedG5 <15 Kidney failure*Relative to young adult level.In the absence of evidence of kidney damage, neither GFRcategory G1 nor G2 fulfill the criteria for CKD.The CKD-EPI equation is validated in individuals 18 yearsof age and older. Currently the best equation forestimating glomerular filtration rate (GFR) from serumcreatinine in children is the Bedside Boyer equation.It is less accurate in patients with extremes of musclemass, restriction of dietary protein, ingestion of creatine,extra-renal metabolism of creatinine, or treatment withmedications that affect renal tubular creatinine secretion. Performed By: #### M G3, BMP3M, PCAL ####[facility] [address] [place] GFR/1.73 sq M.predicted among blacks MDRD (S/P/Bld) [Vol rate/Area] mL/min/{1.73_m2} Normal >60 [facility] Comment on above: Performed By: #### M G3, BMP3M, PCAL ####[address] [address] [place] Potassium [Moles/Vol] 3.1 mmol/L Low 3.5-5.1 [facility] Comment on above: Performed By: #### M G3, BMP3M, PCAL ####[address] [place] Sodium [Moles/Vol] 138 mmol/L Normal 135-145 [facility] Comment on above: Performed By: #### M G3, BMP3M, PCAL ####[address] [place], [place] Chloride [Moles/Vol] 106 mmol/L Normal 98-107 [facility] Comment on above: Performed By: #### M G3, BMP3M, PCAL ####[address] Calcium [Mass/Vol] 8.8 mg/dL Normal 8.4-10.4 [facility] Comment on above: Performed By: #### P HOS3, HEMDF, BMP3M, BHB ####[address] [place], [place] Glucose [Mass/Vol] 94 mg/dL Normal 70-100 [facility] Comment on above: Performed By: #### P HOS3, HEMDF, BMP3M, BHB ####[address] Anion gap [Moles/Vol] 6 mmol/L Normal 3-13 [facility] Comment on above: Performed By: #### P HOS3, HEMDF, BMP3M, BHB ####[address] CO2 [Moles/Vol] 22 mmol/L Normal 22-30 [facility] Comment on above: Performed By: #### P HOS3, HEMDF, BMP3M, BHB ####[address] Creatinine [Mass/Vol] 0.49 mg/dL Low 0.52-1.25 [facility] Comment on above: Performed By: #### P HOS3, HEMDF, BMP3M, BHB ####[address] eGFR OTHER > 90.0 Normal >60 [facility] Comment on above: Result Comment: KDIG O guidelines provide the following GFR categories:Stage GFR(ml/min/1.73 m2) TermsG1 >=90 Normal or highG2 60-89 Mildly decreased*G3a 45-59 Mildly to moderately itwrnteryT9f 30-44 Moderately to severely decreasedG4 15-29 Severely decreasedG5 <15 Kidney failure*Relative to young adult level.In the absence of evidence of kidney damage, neither GFRcategory G1 nor G2 fulfill the criteria for CKD.The CKD-EPI equation is validated in individuals 18 yearsof age and older. Currently the best equation forestimating glomerular filtration rate (GFR) from serumcreatinine in children is the Bedside Boyer equation.It is less accurate in patients with extremes of musclemass, restriction of dietary protein, ingestion of creatine,extra-renal metabolism of creatinine, or treatment withmedications that affect renal tubular creatinine secretion. Performed By: #### P HOS3, HEMDF, BMP3M, BHB ####[address] [place], [place] GFR/1.73 sq M.predicted among blacks MDRD (S/P/Bld) [Vol rate/Area] mL/min/{1.73_m2} Normal >60 [facility] Comment on above: Performed By: #### P HOS3, HEMDF, BMP3M, BHB ####[address] [place] [place], [place] Urea nitrogen [Mass/Vol] mg/dL Low 9-20 [facility] Comment on above: Performed By: #### P HOS3, HEMDF, BMP3M, BHB ####[place] [place] [place], [place] Chloride [Moles/Vol] 109 mmol/L High 98-107 [facility] Comment on above: Performed By: #### P HOS3, HEMDF, BMP3M, BHB ####[place] [place], [place] Potassium [Moles/Vol] 3.7 mmol/L Normal 3.5-5.1 [facility] Comment on above: Result Comment: Slig htly hemolysed, interpret with caution. Performed By: #### P HOS3, HEMDF, BMP3M, BHB ####[place] [place] [place], [place] Sodium [Moles/Vol] 138 mmol/L Normal 135-145 [facility] Comment on above: Performed By: #### P HOS3, HEMDF, BMP3M, BHB ####[place] [place], [place] Beta Hydroxybutyrateon 08-27 Beta Hydroxybutyrate 10.50 mg/dL High 0.20-2.81 [facility] Comment on above: Performed By: #### P HOS3, HEMDF, BMP3M, BHB ####[address] CULTURE URINEon 08-27-2021 CULTURE URINE CULTURE URINE --> St atus: F No growth (<1,000 CFU/ml). Normal [facility] Comment on above: Performed By: #### C /UR ####[address] Hemogram w/ Autodiffon 08-27 Abs Baso Cnt 0.0 10*3/uL Normal 0.0-0.2 [facility] Comment on above: Performed By: #### P HOS3, HEMDF, BMP3M, BHB ####[place] [place], [place] Abs Neutrophile Cnt 2.9 10*3/uL Normal 1.8-7.0 [facility] Comment on above: Performed By: #### P HOS3, HEMDF, BMP3M, BHB ####[address] Basophils/100 WBC (Bld) 0.6 % Normal 0.0-2.0 [facility] Comment on above: Performed By: #### P HOS3, HEMDF, BMP3M, BHB ####[address] Eosinophils (Bld) [#/Vol] 0.1 10*3/uL Normal 0.0-0.5 [facility] Comment on above: Performed By: #### P HOS3, HEMDF, BMP3M, BHB ####[place] [place], [place] Eosinophils/100 WBC (Bld) 2.7 % Normal 1.0-6.0 [facility] Comment on above: Performed By: #### P HOS3, HEMDF, BMP3M, BHB ####[place] [place], [place] Erythrocyte distribution width (RBC) [Ratio] 16.9 % High 11.5-14.5 [facility] Comment on above: Performed By: #### P HOS3, HEMDF, BMP3M, BHB ####[place] [place], [place] Granulocytes/100 WBC (Bld) 62.7 % Normal 40.0-80.0 [facility] Comment on above: Performed By: #### P HOS3, HEMDF, BMP3M, BHB ####[address] Hematocrit (Bld) [Volume fraction] 28.2 % Low 35.0-47.0 [facility] Comment on above: Performed By: #### P HOS3, HEMDF, BMP3M, BHB ####[place] [place], [place] Hemoglobin (Bld) [Mass/Vol] 9.2 g/dL Low 11.7-16.0 [facility] Comment on above: Performed By: #### P HOS3, HEMDF, BMP3M, BHB ####[address] Lymphocytes (Bld) [#/Vol] 1.2 10*3/uL Normal 1.0-4.3 [facility] Comment on above: Performed By: #### P HOS3, HEMDF, BMP3M, BHB ####[address] Lymphocytes/100 WBC (Bld) 26.7 % Normal 20.0-40.0 [facility] Comment on above: Performed By: #### P HOS3, HEMDF, BMP3M, BHB ####[place] [address] [place], [place] MCH (RBC) [Entitic mass] 24.9 pg Low 26.0-34.0 [facility] Comment on above: Performed By: #### P HOS3, HEMDF, BMP3M, BHB ####[place] [address] [place] MCHC 32.4 % Normal 32.0-36.0 [facility] Comment on above: Performed By: #### P HOS3, HEMDF, BMP3M, BHB ####[place] [place], [place] MCV (RBC) [Entitic vol] 76.7 fL Low 79.0-98.0 [facility] Comment on above: Performed By: #### P HOS3, HEMDF, BMP3M, BHB ####[place] [place], [place] Monocytes (Bld) [#/Vol] 0.3 10*3/uL Normal 0.0-0.8 [facility] Comment on above: Performed By: #### P HOS3, HEMDF, BMP3M, BHB ####[place] [place], [place] Monocytes/100 WBC (Bld) 7.3 % Normal 2.0-10.0 [facility] Comment on above: Performed By: #### P HOS3, HEMDF, BMP3M, BHB ####[address] Platelet mean volume (Bld) [Entitic vol] 6.6 fL Low 7.4-10.4 [facility] Comment on above: Performed By: #### P HOS3, HEMDF, BMP3M, BHB ####[place] [place], [place] Platelets (Bld) [#/Vol] 264 10*3/uL Normal 140-440 [facility] Comment on above: Performed By: #### P HOS3, HEMDF, BMP3M, BHB ####[place] [place] RBC (Bld) [#/Vol] 3.68 10*6/uL Low 3.80-5.20 [facility] Comment on above: Performed By: #### P HOS3, HEMDF, BMP3M, BHB ####[place] [address] [address] [place], [place] WBC (Bld) [#/Vol] 4.7 10*3/uL Normal 3.6-10.7 [facility] Comment on above: Performed By: #### P HOS3, HEMDF, BMP3M, BHB ####[address] Magnesiumon 08-27-2021 Magnesium [Mass/Vol] 1.6 mg/dL Normal 1.6-2.3 [facility] Comment on above: Performed By: #### M G3, BMP3M, PCAL ####[place] [address] [place], [place] Phosphoruson 08-27-2021 Phosphate [Mass/Vol] 3.3 mg/dL Normal 2.5-4.5 [facility] Comment on above: Result Comment: Slig htly hemolysed, interpret with caution. Performed By: #### P HOS3, HEMDF, BMP3M, BHB ####[place] [place], [place] Procalcitoninon 08-27-2021 Interpretation See Below Normal [facility] Comment on above: Result Comment: PCT <0.50 = Low risk of severe sepsis and/or septic shock.PCT >2.00 = High risk of severe sepsis and/or septic shock. Performed By: #### M G3, BMP3M, PCAL ####[address] Add on test from HISon 08-26 Add on test from HIS Accepted Normal [facility] Comment on above: Result Comment: Spec imen available & acceptable for analysis. Performed By: #### A DDON ####[place] [address] [facility] [address] Add on test from HIS Accepted Normal [facility] Comment on above: Result Comment: Spec imen available & acceptable for analysis. Performed By: #### A DDON ####[place] [address] [facility] [address] Add on test from HIS Accepted Normal [facility] Comment on above: Result Comment: Spec imen available & acceptable for analysis. Performed By: #### A DDON ####[place] [address] [facility] [address] Basic Metabolic Panelon 12-2 0-2020 Calcium [Mass/Vol] 9.0 mg/dL Normal 8.4-10.4 [facility] Comment on above: Performed By: #### B MP3ISH ####[place] [address] [facility] [place] Glucose [Mass/Vol] 103 mg/dL High 70-100 [facility] Comment on above: Performed By: #### Rubén MENDENHALL3ISH ####[facility] [id number] [facility] [place] Urea nitrogen [Mass/Vol] mg/dL Low 9-20 [facility] Comment on above: Performed By: #### Rubén [id number] ####[place] [address] [facility] [place] Anion gap [Moles/Vol] 11 mmol/L Normal 3-13 [facility] Comment on above: Performed By: #### B MP3 BHB ####[place] [address] [facility] [place] CO2 [Moles/Vol] 18 mmol/L Low 22-30 [facility] Comment on above: Performed By: #### B MP3, BHB ####[place] [address] [facility] [address] Creatinine [Mass/Vol] 0.44 mg/dL Low 0.52-1.25 [facility] Comment on above: Performed By: #### ISH MORRISON ####[place] [place], [place] eGFR OTHER > 90.0 Normal >60 [facility] Comment on above: Result Comment: KDIG O guidelines provide the following GFR categories:Stage GFR(ml/min/1.73 m2) TermsG1 >=90 Normal or highG2 60-89 Mildly decreased*G3a 45-59 Mildly to moderately jrdvbplhsZ4a 30-44 Moderately to severely decreasedG4 15-29 Severely decreasedG5 <15 Kidney failure*Relative to young adult level.In the absence of evidence of kidney damage, neither GFRcategory G1 nor G2 fulfill the criteria for CKD.The CKD-EPI equation is validated in individuals 18 yearsof age and older. Currently the best equation forestimating glomerular filtration rate (GFR) from serumcreatinine in children is the Bedside Boyer equation.It is less accurate in patients with extremes of musclemass, restriction of dietary protein, ingestion of creatine,extra-renal metabolism of creatinine, or treatment withmedications that affect renal tubular creatinine secretion. Performed By: #### B ISH BUSTOS ####[facility] [id number] [place], [place] GFR/1.73 sq M.predicted among blacks MDRD (S/P/Bld) [Vol rate/Area] mL/min/{1.73_m2} Normal >60 [facility] Comment on above: Performed By: #### ISH MORRISON ####[facility] [id number] [place], [place] Chloride [Moles/Vol] 108 mmol/L High 98-107 [facility] Comment on above: Performed By: #### B ISH BUSTOS ####[place] [place], [place] Potassium [Moles/Vol] 4.4 mmol/L Normal 3.5-5.1 [facility] Comment on above: Result Comment: Mode rately hemolysed, interpret with caution. Performed By: #### B ISH BUSTOS ####[facility] [address] [place], [place] Sodium [Moles/Vol] 136 mmol/L Normal 135-145 [facility] Comment on above: Performed By: #### B MP3, BHB ####[facility] [id number] [place], [place] Calcium [Mass/Vol] 10.5 mg/dL High 8.4-10.4 [facility] Comment on above: Performed By: #### B HB, BMP3 ####[facility] [address] [place], [place] Glucose [Mass/Vol] 104 mg/dL High 70-100 [facility] Comment on above: Performed By: #### B HB, BMP3 ####[facility] [id number] [place], [place] Urea nitrogen [Mass/Vol] 2 mg/dL Low 9-20 [facility] Comment on above: Performed By: #### B HB, BMP3 ####[facility] [address] [place], [place] Anion gap [Moles/Vol] 18 mmol/L High 3-13 [facility] Comment on above: Performed By: #### B HB, BMP3 ####[facility] [id number] [place] CO2 [Moles/Vol] 13 mmol/L Low 22-30 [facility] Comment on above: Performed By: #### B HB, BMP3 ####[facility] [id number] [place], [place] Creatinine [Mass/Vol] 0.55 mg/dL Normal 0.52-1.25 [facility] Comment on above: Performed By: #### B HB, BMP3 ####[facility] [id number] [place], [place] eGFR OTHER > 90.0 Normal >60 [facility] Comment on above: Result Comment: KDIG O guidelines provide the following GFR categories:Stage GFR(ml/min/1.73 m2) TermsG1 >=90 Normal or highG2 60-89 Mildly decreased*G3a 45-59 Mildly to moderately ehuojsocdZ5q 30-44 Moderately to severely decreasedG4 15-29 Severely decreasedG5 <15 Kidney failure*Relative to young adult level.In the absence of evidence of kidney damage, neither GFRcategory G1 nor G2 fulfill the criteria for CKD.The CKD-EPI equation is validated in individuals 18 yearsof age and older. Currently the best equation forestimating glomerular filtration rate (GFR) from serumcreatinine in children is the Bedside Boyer equation.It is less accurate in patients with extremes of musclemass, restriction of dietary protein, ingestion of creatine,extra-renal metabolism of creatinine, or treatment withmedications that affect renal tubular creatinine secretion. Performed By: #### B HB, BMP3 ####[address] Performed By: #### P HOS3, HEMDF, BMP3M ####[address] GFR/1.73 sq M.predicted among blacks MDRD (S/P/Bld) [Vol rate/Area] mL/min/{1.73_m2} Normal >60 [facility] Comment on above: Performed By: #### B HB, BMP3 ####[address] Performed By: #### P HOS3, HEMDF, BMP3M ####[address] Chloride [Moles/Vol] 107 mmol/L Normal 98-107 [facility] Comment on above: Performed By: #### B HB, BMP3 ####[address] Potassium [Moles/Vol] 3.9 mmol/L Normal 3.5-5.1 [facility] Comment on above: Performed By: #### B HB, BMP3 ####[address] Sodium [Moles/Vol] 139 mmol/L Normal 135-145 [facility] Comment on above: Performed By: #### B HB, BMP3 ####[address] Anion gap [Moles/Vol] 11 mmol/L Normal 3-13 [facility] Comment on above: Performed By: #### P HOS3, HEMDF, BMP3M ####[address] [place] [place], [place] Calcium [Mass/Vol] 8.8 mg/dL Normal 8.4-10.4 [facility] Comment on above: Performed By: #### P HOS3, HEMDF, BMP3M ####[address] CO2 [Moles/Vol] 17 mmol/L Low 22-30 [facility] Comment on above: Performed By: #### P HOS3, HEMDF, BMP3M ####[address] Glucose [Mass/Vol] 119 mg/dL High 70-100 [facility] Comment on above: Performed By: #### P HOS3, HEMDF, BMP3M ####[address] Urea nitrogen [Mass/Vol] 2 mg/dL Low 9-20 [facility] Comment on above: Performed By: #### P HOS3, HEMDF, BMP3M ####[address] Creatinine [Mass/Vol] 0.50 mg/dL Low 0.52-1.25 [facility] Comment on above: Performed By: #### P HOS3, HEMDF, BMP3M ####[address] Chloride [Moles/Vol] 108 mmol/L High 98-107 [facility] Comment on above: Performed By: #### P HOS3, HEMDF, BMP3M ####[address] Potassium [Moles/Vol] 3.6 mmol/L Normal 3.5-5.1 [facility] Comment on above: Performed By: #### P HOS3, HEMDF, BMP3M ####[address] Sodium [Moles/Vol] 136 mmol/L Normal 135-145 [facility] Comment on above: Performed By: #### P HOS3, HEMDF, BMP3M ####[address] Beta Hydroxybutyrateon 08-26 Beta Hydroxybutyrate 14.50 mg/dL High 0.20-2.81 [facility] Comment on above: Performed By: #### B MP3, BHB ####[address] Beta Hydroxybutyrate 35.20 mg/dL High 0.20-2.81 [facility] Comment on above: Performed By: #### B HB, BMP3 ####[address] Beta Hydroxybutyrate 39.30 mg/dL High 0.20-2.81 [facility] Comment on above: Performed By: #### C MP3, BHB, LIPA4, HEMDF ####[address] Hemogram w/ Autodiffon 08-26 Abs Baso Cnt 0.0 10*3/uL Normal 0.0-0.2 [facility] Comment on above: Performed By: #### P HOS3, HEMDF, BMP3M ####[address] Abs Neutrophile Cnt 2.8 10*3/uL Normal 1.8-7.0 [facility] Comment on above: Performed By: #### P HOS3, HEMDF, BMP3M ####[address] Basophils/100 WBC (Bld) 0.4 % Normal 0.0-2.0 [facility] Comment on above: Performed By: #### P HOS3, HEMDF, BMP3M ####[address] Eosinophils (Bld) [#/Vol] 0.1 10*3/uL Normal 0.0-0.5 [facility] Comment on above: Performed By: #### P HOS3, HEMDF, BMP3M ####[address] Eosinophils/100 WBC (Bld) 1.2 % Normal 1.0-6.0 [facility] Comment on above: Performed By: #### P HOS3, HEMDF, BMP3M ####[address] Erythrocyte distribution width (RBC) [Ratio] 17.2 % High 11.5-14.5 [facility] Comment on above: Performed By: #### P HOS3, HEMDF, BMP3M ####[address] Granulocytes/100 WBC (Bld) 58.5 % Normal 40.0-80.0 [facility] Comment on above: Performed By: #### P HOS3, HEMDF, BMP3M ####[address] Hematocrit (Bld) [Volume fraction] 27.9 % Low 35.0-47.0 [facility] Comment on above: Performed By: #### P HOS3, HEMDF, BMP3M ####[address] Hemoglobin (Bld) [Mass/Vol] 9.1 g/dL Low 11.7-16.0 [facility] Comment on above: Performed By: #### P HOS3, HEMDF, BMP3M ####[address] Lymphocytes (Bld) [#/Vol] 1.4 10*3/uL Normal 1.0-4.3 [facility] Comment on above: Performed By: #### P HOS3, HEMDF, BMP3M ####[address] Lymphocytes/100 WBC (Bld) 30.3 % Normal 20.0-40.0 [facility] Comment on above: Performed By: #### P HOS3, HEMDF, BMP3M ####[address] MCH (RBC) [Entitic mass] 25.3 pg Low 26.0-34.0 [facility] Comment on above: Performed By: #### P HOS3, HEMDF, BMP3M ####[address] MCHC 32.5 % Normal 32.0-36.0 [facility] Comment on above: Performed By: #### P HOS3, HEMDF, BMP3M ####[address] [place], [place] MCV (RBC) [Entitic vol] 77.9 fL Low 79.0-98.0 [facility] Comment on above: Performed By: #### P HOS3, HEMDF, BMP3M ####[address] Monocytes (Bld) [#/Vol] 0.5 10*3/uL Normal 0.0-0.8 [facility] Comment on above: Performed By: #### P HOS3, HEMDF, BMP3M ####[address] Monocytes/100 WBC (Bld) 9.6 % Normal 2.0-10.0 [facility] Comment on above: Performed By: #### P HOS3, HEMDF, BMP3M ####[address] Platelet mean volume (Bld) [Entitic vol] 6.7 fL Low 7.4-10.4 [facility] Comment on above: Performed By: #### P HOS3, HEMDF, BMP3M ####[address] Platelets (Bld) [#/Vol] 246 10*3/uL Normal 140-440 [facility] Comment on above: Performed By: #### P HOS3, HEMDF, BMP3M ####[place] [place], [place] RBC (Bld) [#/Vol] 3.58 10*6/uL Low 3.80-5.20 [facility] Comment on above: Performed By: #### P HOS3, HEMDF, BMP3M ####[place] [place] WBC (Bld) [#/Vol] 4.7 10*3/uL Normal 3.6-10.7 [facility] Comment on above: Performed By: #### P HOS3, HEMDF, BMP3M ####[place] [place] Lactic Acidon 08-26-2021 Lactate [Moles/Vol] 0.6 mmol/L Low 0.7-2.0 [facility] Comment on above: Performed By: #### L ACT3 ####[place] [address] [address] [place], [place] Phosphoruson 08-26-2021 Phosphate [Mass/Vol] 3.9 mg/dL Normal 2.5-4.5 [facility] Comment on above: Performed By: #### P HOS3, HEMDF, BMP3M ####[place] [address] [address] [place] Abdomen/Pelvis w/ Contras ton 08-25-2021 CT Abdomen/Pelvis w/ Contrast Normal [facility] Comp Metabolic Panelon 08-25 ALT [Catalytic activity/Vol] 18 U/L Normal 0-34 [facility] Comment on above: Result Comment: The ALT test is performed by an updated assay method.Please note that the reference intervals have beenchanged and are now sex specific. Performed By: #### C MP3, BHB, LIPA4, HEMDF ####[place] [id number], [place] Calcium [Mass/Vol] 9.7 mg/dL Normal 8.4-10.4 [facility] Comment on above: Performed By: #### C MP3, BHB, LIPA4, HEMDF ####[facility], [place] Glucose [Mass/Vol] 74 mg/dL Normal 70-100 [facility] Comment on above: Performed By: #### C MP3, BHB, LIPA4, HEMDF ####[facility], [place] Urea nitrogen [Mass/Vol] 4 mg/dL Low 9-20 [facility] Comment on above: Performed By: #### C MP3, BHB, LIPA4, HEMDF ####[facility] [place], [place] ALP [Catalytic activity/Vol] 67 U/L Normal 38-126 [facility] Comment on above: Result Comment: Slig htly hemolysed, interpret with caution. Performed By: #### C MP3, BHB, LIPA4, HEMDF ####[place] [address] [place], [place] Anion gap [Moles/Vol] 15 mmol/L High 3-13 [facility] Comment on above: Performed By: #### C MP3, BHB, LIPA4, HEMDF ####[address] [place], [place] AST [Catalytic activity/Vol] 37 U/L Normal 15-46 [facility] Comment on above: Result Comment: Slig htly hemolysed, interpret with caution. Performed By: #### C MP3, BHB, LIPA4, HEMDF ####[address] [place], [place] Bilirubin [Mass/Vol] 0.9 mg/dL Normal 0.2-1.3 [facility] Comment on above: Performed By: #### C MP3, BHB, LIPA4, HEMDF ####[address] [place], [place] CO2 [Moles/Vol] 16 mmol/L Low 22-30 [facility] Comment on above: Performed By: #### C MP3, BHB, LIPA4, HEMDF ####[facility] [id number] [place], [place] Creatinine [Mass/Vol] 0.57 mg/dL Normal 0.52-1.25 [facility] Comment on above: Performed By: #### C MP3, BHB, LIPA4, HEMDF ####[facility] [address] [place], [place] eGFR OTHER > 90.0 Normal >60 [facility] Comment on above: Result Comment: KDIG O guidelines provide the following GFR categories:Stage GFR(ml/min/1.73 m2) TermsG1 >=90 Normal or highG2 60-89 Mildly decreased*G3a 45-59 Mildly to moderately bhvpiazrpI7n 30-44 Moderately to severely decreasedG4 15-29 Severely decreasedG5 <15 Kidney failure*Relative to young adult level.In the absence of evidence of kidney damage, neither GFRcategory G1 nor G2 fulfill the criteria for CKD.The CKD-EPI equation is validated in individuals 18 yearsof age and older. Currently the best equation forestimating glomerular filtration rate (GFR) from serumcreatinine in children is the Bedside Boyer equation.It is less accurate in patients with extremes of musclemass, restriction of dietary protein, ingestion of creatine,extra-renal metabolism of creatinine, or treatment withmedications that affect renal tubular creatinine secretion. Performed By: #### C MP3, BHB, LIPA4, HEMDF ####[facility] [address] [place], [place] GFR/1.73 sq M.predicted among blacks MDRD (S/P/Bld) [Vol rate/Area] mL/min/{1.73_m2} Normal >60 [facility] Comment on above: Performed By: #### C MP3, BHB, LIPA4, HEMDF ####[facility] [address] [place], [place] Protein [Mass/Vol] 8.7 g/dL High 6.3-8.2 [facility] Comment on above: Result Comment: Slig htly hemolysed, interpret with caution. Performed By: #### C MP3, BHB, LIPA4, HEMDF ####[address] [place], [place] Chloride [Moles/Vol] 109 mmol/L High 98-107 [facility] Comment on above: Performed By: #### C MP3, BHB, LIPA4, HEMDF ####[place] [place], [place] Potassium [Moles/Vol] 4.7 mmol/L Normal 3.5-5.1 [facility] Comment on above: Result Comment: Slig htly hemolysed, interpret with caution. Performed By: #### C MP3, BHB, LIPA4, HEMDF ####[address] [place], [place] Sodium [Moles/Vol] 139 mmol/L Normal 135-145 [facility] Comment on above: Performed By: #### C MP3, BHB, LIPA4, HEMDF ####[address] [place], [place] Albumin [Mass/Vol] 4.5 g/dL Normal 3.5-5.0 [facility] Comment on above: Result Comment: Slig htly hemolysed, interpret with caution. Performed By: #### C MP3, BHB, LIPA4, HEMDF ####[address] [place], [place] Complete Urinalysison 2020 Appearance (U) Turbid Abnormal Clear [facility] Comment on above: Result Comment: . Performed By: #### C UA2 ####[address] Bacteria Few Abnormal Negative [facility] Comment on above: Result Comment: . Performed By: #### C UA2 ####[address] Bilirubin,Urine Negative Normal Negative [facility] Comment on above: Result Comment: . Performed By: #### C UA2 ####[address] Cast, Hyaline 0 - 2 Abnormal Negative [facility] Comment on above: Result Comment: . Performed By: #### C UA2 ####[address] [place], [place] Color (U) Light-Yellow Normal Lt. Yellow [facility] Comment on above: Result Comment: . Performed By: #### C UA2 ####[address] [place], [place] Glucose Ql (U) Normal Normal Normal (<70) [facility] Comment on above: Result Comment: . Performed By: #### C UA2 ####[place] [address] [place], [place] Ketone,Urine > 150 Abnormal Negative [facility] Comment on above: Result Comment: . Performed By: #### C UA2 ####[address] [place], [place] Leukocytes,Urine 500 Nesha/uL Abnormal Negative [facility] Comment on above: Result Comment: . Performed By: #### C UA2 ####[address] [place] Mucous Threads Few Normal Negative [facility] Comment on above: Result Comment: . Performed By: #### C UA2 ####[place] [address] [place], [place] Nitrites,Urine Negative Normal Negative [facility] Comment on above: Result Comment: . Performed By: #### C UA2 ####[address] [place] Occult Blood,Urine 0.2 mg/dL Abnormal Negative [facility] Comment on above: Result Comment: . Performed By: #### C UA2 ####[address] [place] pH,Urine 5.5 Normal 5.0-8.0 [facility] Comment on above: Result Comment: . Performed By: #### C UA2 ####[address] [place], [place] Protein (U) [Mass/Vol] 50 mg/dL Abnormal Negative [facility] Comment on above: Result Comment: . Performed By: #### C UA2 ####[address] RBC, Urine 26 - 50 Abnormal 0-2 [facility] Comment on above: Result Comment: . Performed By: #### C UA2 ####[address] Specific [place],Urine > 1.030 Abnormal 1.005 - 1.030 [facility] Comment on above: Result Comment: . Performed By: #### C UA2 ####[address] Squamous Epithelial 3 - 5 Normal 3-5 [facility] Comment on above: Result Comment: . Performed By: #### C UA2 ####[address] Urobilinogen,Urine Normal Normal Normal (0-1) [facility] Comment on above: Result Comment: . Performed By: #### C UA2 ####[address] WBC, Urine 51 - 100 Abnormal 0-5 [facility] Comment on above: Result Comment: . Performed By: #### C UA2 ####[address] ED Provider Noteon ED Provider Note Normal [facility] Hemogram w/ Autodiffon 08-25 Abs Baso Cnt 0.0 10*3/uL Normal 0.0-0.2 [facility] Comment on above: Performed By: #### C MP3, BHB, LIPA4, HEMDF ####[address] Abs Neutrophile Cnt 4.1 10*3/uL Normal 1.8-7.0 [facility] Comment on above: Performed By: #### C MP3, BHB, LIPA4, HEMDF ####[address] Basophils/100 WBC (Bld) 0.4 % Normal 0.0-2.0 [facility] Comment on above: Performed By: #### C MP3, BHB, LIPA4, HEMDF ####[address] [place], [place] Eosinophils (Bld) [#/Vol] 0.1 10*3/uL Normal 0.0-0.5 [facility] Comment on above: Performed By: #### C MP3, BHB, LIPA4, HEMDF ####[address] Eosinophils/100 WBC (Bld) 1.7 % Normal 1.0-6.0 [facility] Comment on above: Performed By: #### C MP3, BHB, LIPA4, HEMDF ####[address] [place], [place] Erythrocyte distribution width (RBC) [Ratio] 18.5 % High 11.5-14.5 [facility] Comment on above: Performed By: #### C MP3, BHB, LIPA4, HEMDF ####[address] Granulocytes/100 WBC (Bld) 70.2 % Normal 40.0-80.0 [facility] Comment on above: Performed By: #### C MP3, BHB, LIPA4, HEMDF ####[address] [place], [place] Hematocrit (Bld) [Volume fraction] 35.7 % Normal 35.0-47.0 [facility] Comment on above: Performed By: #### C MP3, BHB, LIPA4, HEMDF ####[address] [place], [place] Hemoglobin (Bld) [Mass/Vol] 11.3 g/dL Low 11.7-16.0 [facility] Comment on above: Performed By: #### C MP3, BHB, LIPA4, HEMDF ####[address] [place], [place] Lymphocytes (Bld) [#/Vol] 1.2 10*3/uL Normal 1.0-4.3 [facility] Comment on above: Performed By: #### C MP3, BHB, LIPA4, HEMDF ####[address] [place], [place] Lymphocytes/100 WBC (Bld) 20.0 % Normal 20.0-40.0 [facility] Comment on above: Performed By: #### C MP3, BHB, LIPA4, HEMDF ####[address] MCH (RBC) [Entitic mass] 24.7 pg Low 26.0-34.0 [facility] Comment on above: Performed By: #### C MP3, BHB, LIPA4, HEMDF ####[address] [place], [place] MCHC 31.5 % Low 32.0-36.0 [facility] Comment on above: Performed By: #### C MP3, BHB, LIPA4, HEMDF ####[address] MCV (RBC) [Entitic vol] 78.4 fL Low 79.0-98.0 [facility] Comment on above: Performed By: #### C MP3, BHB, LIPA4, HEMDF ####[address] [place], [place] Monocytes (Bld) [#/Vol] 0.4 10*3/uL Normal 0.0-0.8 [facility] Comment on above: Performed By: #### C MP3, BHB, LIPA4, HEMDF ####[address] Monocytes/100 WBC (Bld) 7.7 % Normal 2.0-10.0 [facility] Comment on above: Performed By: #### C MP3, BHB, LIPA4, HEMDF ####[address] Platelet mean volume (Bld) [Entitic vol] 7.0 fL Low 7.4-10.4 [facility] Comment on above: Performed By: #### C MP3, BHB, LIPA4, HEMDF ####[facility] [address] [place], [place] Platelets (Bld) [#/Vol] 292 10*3/uL Normal 140-440 [facility] Comment on above: Performed By: #### C MP3, BHB, LIPA4, HEMDF ####[facility] [address] [place], [place] RBC (Bld) [#/Vol] 4.56 10*6/uL Normal 3.80-5.20 [facility] Comment on above: Performed By: #### C MP3, BHB, LIPA4, HEMDF ####[address] [place], [place] WBC (Bld) [#/Vol] 5.8 10*3/uL Normal 3.6-10.7 [facility] Comment on above: Performed By: #### C MP3, BHB, LIPA4, HEMDF ####[facility] [id number] [place], [place] Lipaseon 08-25-2021 Lipase [Catalytic activity/Vol] 64 U/L Normal 23-300 [facility] Comment on above: Performed By: #### C MP3, BHB, LIPA4, HEMDF ####[facility] [address] [place], [place] Absolute lymphocyte counton 08-24-2021 Lymphocytes Auto (Unsp spec) [#/Vol] 0.57 10*3/uL 0.83-4.51 [facility] Work Phone: Basic Metabolic Panelon 08-07 Calcium [Mass/Vol] 8.3 mg/dL Low 8.4-10.4 [facility] Comment on above: Performed By: #### B MP3 ####[facility] [address] [place], [place] Glucose [Mass/Vol] 86 mg/dL Normal 70-100 [facility] Comment on above: Performed By: #### B MP3 ####[facility] [address] [place], [place] Anion gap [Moles/Vol] 13 mmol/L Normal 3-13 [facility] Comment on above: Performed By: #### B MP3 ####[facility] [address] [place], [place] CO2 [Moles/Vol] 16 mmol/L Low 22-30 [facility] Comment on above: Performed By: #### B MP3 ####[facility] [id number] [place] Creatinine [Mass/Vol] 0.49 mg/dL Low 0.52-1.25 [facility] Comment on above: Performed By: #### B MP3 ####[facility] [address] [place], [place] eGFR OTHER > 90.0 Normal >60 [facility] Comment on above: Result Comment: KDIG O guidelines provide the following GFR categories:Stage GFR(ml/min/1.73 m2) TermsG1 >=90 Normal or highG2 60-89 Mildly decreased*G3a 45-59 Mildly to moderately lruegaizsC2m 30-44 Moderately to severely decreasedG4 15-29 Severely decreasedG5 <15 Kidney failure*Relative to young adult level.In the absence of evidence of kidney damage, neither GFRcategory G1 nor G2 fulfill the criteria for CKD.The CKD-EPI equation is validated in individuals 18 yearsof age and older. Currently the best equation forestimating glomerular filtration rate (GFR) from serumcreatinine in children is the Bedside Boyer equation.It is less accurate in patients with extremes of musclemass, restriction of dietary protein, ingestion of creatine,extra-renal metabolism of creatinine, or treatment withmedications that affect renal tubular creatinine secretion. Performed By: #### B MP3 ####[employer] [id number] [place], [place] GFR/1.73 sq M.predicted among blacks MDRD (S/P/Bld) [Vol rate/Area] mL/min/{1.73_m2} Normal >60 [facility] Comment on above: Performed By: #### B MP3 ####[facility] [address] Urea nitrogen [Mass/Vol] 7 mg/dL Low 9-20 [facility] Comment on above: Performed By: #### B MP3 ####[facility] [address] Chloride [Moles/Vol] 111 mmol/L High 98-107 [facility] Comment on above: Performed By: #### B MP3 ####[place] [address] [facility] [address] Potassium [Moles/Vol] 3.9 mmol/L Normal 3.5-5.1 [facility] Comment on above: Performed By: #### B MP3 ####[place] [address] [facility] [address] Sodium [Moles/Vol] 140 mmol/L Normal 135-145 [facility] Comment on above: Performed By: #### B MP3 ####[place] [address] [address] Calcium [Mass/Vol] 9.8 mg/dL Normal 8.4-10.4 [facility] Comment on above: Performed By: #### H EMOG, LACT3, BMP3 ####[place] [address] [facility] [address] Glucose [Mass/Vol] 101 mg/dL High 70-100 [facility] Comment on above: Performed By: #### H EMOG, LACT3, BMP3 ####[place] [address] [address] Urea nitrogen [Mass/Vol] 7 mg/dL Low 9-20 [facility] Comment on above: Performed By: #### H EMOG, LACT3, BMP3 ####[place] [address] [address] Anion gap [Moles/Vol] 19 mmol/L High 3-13 [facility] Comment on above: Performed By: #### H EMOG, LACT3, BMP3 ####[address] [place], [place] CO2 [Moles/Vol] 16 mmol/L Low 22-30 [facility] Comment on above: Performed By: #### H NYLA LACT3, BMP3 ####[facility] [address] [place], [place] Creatinine [Mass/Vol] 0.61 mg/dL Normal 0.52-1.25 [facility] Comment on above: Performed By: #### H NYLA LACT3, BMP3 ####[facility] [address] [place], [place] eGFR OTHER > 90.0 Normal >60 [facility] Comment on above: Result Comment: KDIG O guidelines provide the following GFR categories:Stage GFR(ml/min/1.73 m2) TermsG1 >=90 Normal or highG2 60-89 Mildly decreased*G3a 45-59 Mildly to moderately wmrjolcrpZ3g 30-44 Moderately to severely decreasedG4 15-29 Severely decreasedG5 <15 Kidney failure*Relative to young adult level.In the absence of evidence of kidney damage, neither GFRcategory G1 nor G2 fulfill the criteria for CKD.The CKD-EPI equation is validated in individuals 18 yearsof age and older. Currently the best equation forestimating glomerular filtration rate (GFR) from serumcreatinine in children is the Bedside Boyer equation.It is less accurate in patients with extremes of musclemass, restriction of dietary protein, ingestion of creatine,extra-renal metabolism of creatinine, or treatment withmedications that affect renal tubular creatinine secretion. Performed By: #### H NYLA LACT3, BMP3 ####[facility] [id number] [place], [place] GFR/1.73 sq M.predicted among blacks MDRD (S/P/Bld) [Vol rate/Area] mL/min/{1.73_m2} Normal >60 [facility] Comment on above: Performed By: #### H EMOG, LACT3, BMP3 ####[facility] [address] [place], [place] Potassium [Moles/Vol] 4.0 mmol/L Normal 3.5-5.1 [facility] Comment on above: Performed By: #### H EMOG, LACT3, BMP3 ####[facility] [address] [place] [address] Chloride [Moles/Vol] 106 mmol/L Normal 98-107 [facility] Comment on above: Performed By: #### H EMOG, LACT3, BMP3 ####[facility] [place] [address] Sodium [Moles/Vol] 141 mmol/L Normal 135-145 [facility] Comment on above: Performed By: #### H EMOG, LACT3, BMP3 ####[facility] [place] [address] Basophil percentageon 2020 Basophil percentage 50-100 SEEN /hpf [facility] Work Phone: Bilirubin [Mass/Vol] 0.50 mg/dL 0.20-1.00 [facility] Work Phone: Comment on above: For patients on eltr ombopag therapy, use of Dimension [place] TBIL is not recommended. Chloride [Moles/Vol] 103 mmol/L 98-107 [facility] Work Phone: Eosinophils/100 WBC (Bld) 0.4 % 0-5 [facility] Work Phone: Glucose [Mass/Vol] 112 mg/dL 74-106 [facility] Work Phone: Comment on above: Fasting Glucose resu lt from 100 to 125 mg/dL suggests IMPAIRED HOMEOSTASIS per A.D.A. criteria.Please note revised GLUCOSE reference range effective 2017. Neutrophils (Bld) [#/Vol] 7.4 10*3/uL 2.0-7.7 [facility] Work Phone: Potassium [Moles/Vol] 3.4 mmol/L 3.5-5.1 [facility] Work Phone: Protein [Mass/Vol] 8.9 g/dL 6.4-8.2 [facility] Work Phone: Sodium [Moles/Vol] 136 mmol/L 136-145 [facility] Work Phone: [phone] WBC (Bld) [#/Vol] 8.6 10*3/uL 4.4-11.0 [facility] Work Phone: Bilirubin Test strip Ql (U)o n 08-24-2021 Bilirubin Ql (U) Negative Negative [facility] Work Phone: Blood erythrocytes count (nu mber/volume)on 08-24-2021 RBC (Bld) [#/Vol] 4.52 10*6/uL 4.2-5.4 [facility] Work Phone: Blood hemoglobin measurement (mass/volume)on 08-24-2021 Hemoglobin (Bld) [Mass/Vol] 11.2 g/dL 12.0-15.0 [facility] Work Phone: Blood lymphocytes/100 leukoc yteson 08-24-2021 Lymphocytes/100 WBC (Bld) 6.7 % 19-41 [facility] Work Phone: Blood manual differential co mment interpretation (narrative result)on 08-24-2021 Manual differential comment Arley (Bld) [Interp] SCANNED [facility] Work Phone: Blood monocytes/100 leukocyt eson 08-24-2021 Monocytes/100 WBC (Bld) 6.3 % 0-10 [facility] Work Phone: Blood platelet mean volumeon 08-24-2021 Platelet mean volume (Bld) [Entitic vol] 9.2 fL 6.2-12.0 [facility] Work Phone: Determination of erythrocyte mean corpuscular volume (MCV)on 08-24-2021 MCV (RBC) [Entitic vol] 79.0 fL 81-99 [facility] Work Phone: ED Provider Noteon ED Provider Note Normal [facility] Hematocrit Auto (Bld) [Volum e fraction]on 08-24-2021 Hematocrit (Bld) [Volume fraction] 35.7 % 37-47 [facility] Work Phone: Hemogramon 08-24-2021 Erythrocyte distribution width (RBC) [Ratio] 17.4 % High 11.5-14.5 [facility] Comment on above: Performed By: #### H EMOG, LACT3, BMP3 ####[facility] [id number] [place], [place] Hematocrit (Bld) [Volume fraction] 34.4 % Low 35.0-47.0 [facility] Comment on above: Performed By: #### H EMOG, LACT3, BMP3 ####[facility] [id number] [place], [place] Hemoglobin (Bld) [Mass/Vol] 10.9 g/dL Low 11.7-16.0 [facility] Comment on above: Performed By: #### H EMOG, LACT3, BMP3 ####[facility] [address] [place], [place] MCH (RBC) [Entitic mass] 24.8 pg Low 26.0-34.0 [facility] Comment on above: Performed By: #### H EMOG, LACT3, BMP3 ####[facility] [id number] [place] MCHC 31.8 % Low 32.0-36.0 [facility] Comment on above: Performed By: #### H EMOG, LACT3, BMP3 ####[facility] [address] [place] MCV (RBC) [Entitic vol] 78.2 fL Low 79.0-98.0 [facility] Comment on above: Performed By: #### H EMOG, LACT3, BMP3 ####[facility] [address] [place], [place] Platelet mean volume (Bld) [Entitic vol] 7.1 fL Low 7.4-10.4 [facility] Comment on above: Performed By: #### H EMOG, LACT3, BMP3 ####[facility] [id number] [place], [place] Platelets (Bld) [#/Vol] 293 10*3/uL Normal 140-440 [facility] Comment on above: Performed By: #### H EMOG, LACT3, BMP3 ####[facility] [id number] [place] RBC (Bld) [#/Vol] 4.40 10*6/uL Normal 3.80-5.20 [facility] Comment on above: Performed By: #### H EMOG, LACT3, BMP3 ####[facility] [address] [place] WBC (Bld) [#/Vol] 7.5 10*3/uL Normal 3.6-10.7 [facility] Comment on above: Performed By: #### H EMOG, LACT3, BMP3 ####[facility] [address] [place], [place] Ketones Test strip Ql (U)on 08-24-2021 Ketones Ql (U) 150 mg/dl Negative [facility] Work Phone: Comment on above: CRITICAL VALUE *HCRI TICAL VALUE VERIFIED. CALLED TO Silvestre LORD RN ER08/24/21 0634 Stan Arndt.RESULTS READ BACK BY SAME. Laboratory - Chemistry and C hemistry - challengeon 08-24-2021 ALP [Catalytic activity/Vol] 72 U/L 45-117 [facility] Work Phone: ALT [Catalytic activity/Vol] 23 U/L 13-56 [facility] Work Phone: CO2 [Moles/Vol] 18.0 mmol/L 21.0-32.0 [facility] Work Phone: Globulin (S) [Mass/Vol] 5.2 g/dL 2.2-4.2 [facility] Work Phone: Lipase [Catalytic activity/Vol] 54 U/L 73-393 [facility] Work Phone: Urea nitrogen/Creatinine [Mass ratio] 15.3 mg/mg 10-20 [facility] Work Phone: Laboratory - Hematology and Cell countson 08-24-2021 Basophils/100 WBC (Unsp spec) 0.2 % 0-1 [facility] Work Phone: Erythrocyte distribution width (RBC) [Entitic vol] 46.2 fL 35.1-43.9 [facility] Work Phone: Erythrocyte distribution width (RBC) [Ratio] 16.1 % 11.6-14.6 [facility] Work Phone: Immature granulocytes/100 WBC (Bld) 0.400 % 0.0-0.9 [facility] Work Phone: Comment on above: IG% - Immature Granu locytes (promyelocytes, myelocytes and metamyelocytes) > 1% indicates that a LEFT SHIFT is Present. MCH (RBC) [Entitic mass] 24.8 pg 27.0-32.0 [facility] Work Phone: Neutrophils/100 WBC (Bld) 86.0 % 47-70 [facility] Work Phone: Nucleated RBC/100 WBC (Bld) [Ratio] 0 % 0-5 [facility] Work Phone: Lactic Acidon 08-24-2021 Lactate [Moles/Vol] 1.2 mmol/L Normal 0.7-2.0 [facility] Comment on above: Performed By: #### H EMOG, LACT3, BMP3 ####[facility] [address] [place] [address] MCHC Auto (RBC) [Mass/Vol]on 08-24-2021 MCHC (RBC) [Mass/Vol] 31.4 g/dL 32-36 [facility] Work Phone: Mucus LM Ql (Urine sed)on Mucus Ql (Urine sed) RARE /hpf [facility] Work Phone: Nitrite Test strip Ql (U)on 08-24-2021 Nitrite Ql (U) Positive Negative [facility] Work Phone: No Panel Informationon 08-24 Estimated Creatinine Clearance Calc 143.08 ml/min [facility] Work Phone: Estimated GFR (MDRD) Amer 146 mL/min >60 [facility] Work Phone: Comment on above: GFR Calc Estimated GFR (MDRD) Non-Af Amer 121 mL/min >60 [facility] Work Phone: Comment on above: Non- GFR Calc Platelets bldon 08-24-2021 Platelets (Bld) [#/Vol] 297 10*3/uL 150-450 [facility] Work Phone: Protein Test strip Ql (U)on 08-24-2021 Protein Ql (U) 100 mg/dl Negative [facility] Work Phone: Serum or plasma albumin justice urement (mass/volume)on 08-24-2021 Albumin [Mass/Vol] 3.7 g/dL 3.2-5.0 [facility] Work Phone: Serum or plasma albumin/glob ulin mass ratioon 08-24-2021 Albumin/Globulin [Mass ratio] 0.7 {ratio} 0.9-2.4 [facility] Work Phone: Serum or plasma calcium justice urement (mass/volume)on 08-24-2021 Calcium [Mass/Vol] 9.6 mg/dL 8.5-10.1 [facility] Work Phone: Serum or plasma creatinine m easurement (mass/volume)on 08-24-2021 Creatinine [Mass/Vol] 0.65 mg/dL 0.55-1.02 [facility] Work Phone: Comment on above: The validity of the calculated GFR & GFRAA in patients over 70 years has not been determined. Clinical correlation is essential. Serum or plasma urea nitroge n measurement (mass/volume)on 08-24-2021 Urea nitrogen [Mass/Vol] 10 mg/dL - [facility] Work Phone: Squamous epithelial cells de tection in urine sediment by light microscopyon 08-24-2021 Epithelial cells.squamous LM Ql (Urine sed) 0 SEEN /hpf [facility] Work Phone: Thin prep Papanicolaou smear with manual screeningon 08-24-2021 Thin prep Papanicolaou smear with manual screening 9 U/L 15-37 [facility] Work Phone: Thin prep Papanicolaou smear with manual screening 15 5-15 [facility] Work Phone: Urine blood detectionon RBC Ql (U) 50 /ul Negative [facility] Work Phone: RBC Ql (U) 0-5 SEEN /hpf [facility] Work Phone: Urine clarityon 08-24-2021 Clarity (U) Sl. Cloudy Clear [facility] Work Phone: Urine color determinationon 08-24-2021 Color (U) Yellow Yellow [facility] Work Phone: Urine glucose detectionon Glucose Ql (U) Normal mg/dl Normal [facility] Work Phone: Urine leukocyte esterase det ection by dipstickon 08-24-2021 Leukocyte esterase Test strip Ql (U) 500 /ul Negative [facility] Work Phone: Urine pHon 08-24-2021 pH (U) 5.0 [pH] [facility] Work Phone: Urine sediment bacteria coun t by microscopy (number/high power field)on 08-24-2021 Bacteria LM.HPF (Urine sed) [#/Area] 2 /[HPF] None Seen [facility] Work Phone: Urine specific gravity measu rementon 08-24-2021 Specific gravity (U) [Rel density] 1.025 [facility] Work Phone: Urobilinogen Auto test strip Ql (U)on 08-24-2021 Urobilinogen Ql (U) Normal mg/dl Normal [facility] Work Phone: Basic Metabolic Panelon 11-2 Calcium [Mass/Vol] 9.2 mg/dL Normal 8.4-10.4 [facility] Comment on above: Performed By: #### B MP3M, HEMDF ####[employer] [address] [place], [place] Glucose [Mass/Vol] 87 mg/dL Normal 70-100 [facility] Comment on above: Performed By: #### B MP3M, HEMDF ####[address] [place], [place] Anion gap [Moles/Vol] 6 mmol/L Normal 3-13 [facility] Comment on above: Performed By: #### B MP3M, HEMDF ####[address] [place], [place] CO2 [Moles/Vol] 27 mmol/L Normal 22-30 [facility] Comment on above: Performed By: #### B MP3M, HEMDF ####[address] [place], [place] Creatinine [Mass/Vol] 0.68 mg/dL Normal 0.52-1.25 [facility] Comment on above: Performed By: #### B MP3M, HEMDF ####[address] [place], [place] eGFR OTHER > 90.0 Normal >60 [facility] Comment on above: Result Comment: KDIG O guidelines provide the following GFR categories:Stage GFR(ml/min/1.73 m2) TermsG1 >=90 Normal or highG2 60-89 Mildly decreased*G3a 45-59 Mildly to moderately marmxpfupI9j 30-44 Moderately to severely decreasedG4 15-29 Severely decreasedG5 <15 Kidney failure*Relative to young adult level.In the absence of evidence of kidney damage, neither GFRcategory G1 nor G2 fulfill the criteria for CKD.The CKD-EPI equation is validated in individuals 18 yearsof age and older. Currently the best equation forestimating glomerular filtration rate (GFR) from serumcreatinine in children is the Bedside Boyer equation.It is less accurate in patients with extremes of musclemass, restriction of dietary protein, ingestion of creatine,extra-renal metabolism of creatinine, or treatment withmedications that affect renal tubular creatinine secretion. Performed By: #### Rubén MENDENHALL3Peter, HEMDF ####[address] [place], [place] GFR/1.73 sq M.predicted among blacks MDRD (S/P/Bld) [Vol rate/Area] mL/min/{1.73_m2} Normal >60 [facility] Comment on above: Performed By: #### Rubén MP3Peter, HEMDF ####[address] [place], [place] Urea nitrogen [Mass/Vol] 5 mg/dL Low 9-20 [facility] Comment on above: Performed By: #### Rubén MENDENHALL3Peter, HEMDF ####[address] Chloride [Moles/Vol] 103 mmol/L Normal 98-107 [facility] Comment on above: Performed By: #### Rubén MENDENHALL3Peter, HEMDF ####[address] Potassium [Moles/Vol] 4.3 mmol/L Normal 3.5-5.1 [facility] Comment on above: Performed By: #### Rubén MENDENHALL3Peter, HEMDF ####[address] Sodium [Moles/Vol] 136 mmol/L Normal 135-145 [facility] Comment on above: Performed By: #### Rubén MP3Peter, HEMDF ####[address] Hemogram w/ Autodiffon 08-01 Abs Baso Cnt 0.0 10*3/uL Normal 0.0-0.2 [facility] Comment on above: Performed By: #### Rubén MP3M, HEMDF ####[address] Abs Neutrophile Cnt 2.6 10*3/uL Normal 1.8-7.0 [facility] Comment on above: Performed By: #### Rubén MP3M, HEMDF ####[facility] [id number] [place], [place] Basophils/100 WBC (Bld) 0.7 % Normal 0.0-2.0 [facility] Comment on above: Performed By: #### B MP3M, HEMDF ####[address] [place], [place] Eosinophils (Bld) [#/Vol] 0.2 10*3/uL Normal 0.0-0.5 [facility] Comment on above: Performed By: #### B MP3M, HEMDF ####[address] [place], [place] Eosinophils/100 WBC (Bld) 4.2 % Normal 1.0-6.0 [facility] Comment on above: Performed By: #### B MP3M, HEMDF ####[address] [place], [place] Erythrocyte distribution width (RBC) [Ratio] 19.8 % High 11.5-14.5 [facility] Comment on above: Performed By: #### B MP3M, HEMDF ####[address] [place], [place] Granulocytes/100 WBC (Bld) 46.3 % Normal 40.0-80.0 [facility] Comment on above: Performed By: #### B MP3M, HEMDF ####[address] [place], [place] Hematocrit (Bld) [Volume fraction] 34.9 % Low 35.0-47.0 [facility] Comment on above: Performed By: #### B MP3M, HEMDF ####[address] [place], [place] Hemoglobin (Bld) [Mass/Vol] 11.0 g/dL Low 11.7-16.0 [facility] Comment on above: Performed By: #### B MP3M, HEMDF ####[address] [place], [place] Lymphocytes (Bld) [#/Vol] 2.4 10*3/uL Normal 1.0-4.3 [facility] Comment on above: Performed By: #### B ZA3Peter HEMMELBA ####[address] [place], [place] Lymphocytes/100 WBC (Bld) 43.4 % High 20.0-40.0 [facility] Comment on above: Performed By: #### B ZA3Peter HEMDF ####[address] MCH (RBC) [Entitic mass] 24.2 pg Low 26.0-34.0 [facility] Comment on above: Performed By: #### Rubén MENDENHALL3Peter HEMDF ####[address] [place], [place] MCHC 31.5 % Low 32.0-36.0 [facility] Comment on above: Performed By: #### Rubén MENDENHALL3Peter HEMDF ####[address] MCV (RBC) [Entitic vol] 76.9 fL Low 79.0-98.0 [facility] Comment on above: Performed By: #### Rubén MENDENHALL3Peter HEMDF ####[address] Monocytes (Bld) [#/Vol] 0.3 10*3/uL Normal 0.0-0.8 [facility] Comment on above: Performed By: #### B MP3Peter, HEMDF ####[address] Monocytes/100 WBC (Bld) 5.4 % Normal 2.0-10.0 [facility] Comment on above: Performed By: #### Rubén MP3Peter, HEMDF ####[address] Platelet mean volume (Bld) [Entitic vol] 8.0 fL Normal 7.4-10.4 [facility] Comment on above: Performed By: #### B ZA3Peter, HEMDF ####[address] [place], [place] Platelets (Bld) [#/Vol] 180 10*3/uL Normal 140-440 [facility] Comment on above: Performed By: #### B MP3M, HEMDF ####[address] [place], [place] RBC (Bld) [#/Vol] 4.55 10*6/uL Normal 3.80-5.20 [facility] Comment on above: Performed By: #### B MP3M, HEMDF ####[address] [place], [place] WBC (Bld) [#/Vol] 5.6 10*3/uL Normal 3.6-10.7 [facility] Comment on above: Performed By: #### B MP3Peter HEMDF ####[address] [place], [place] Magnesiumon 08-01-2021 Magnesium [Mass/Vol] 2.0 mg/dL Normal 1.6-2.3 [facility] Comment on above: Performed By: #### P HOS3, MG3 ####[address] [place], [place] Phosphoruson 08-01-2021 Phosphate [Mass/Vol] 5.5 mg/dL High 2.5-4.5 [facility] Comment on above: Performed By: #### P HOS3, MG3 ####[address] [place], [place] Magnesiumon 07-31-2021 Magnesium [Mass/Vol] 2.0 mg/dL Normal 1.6-2.3 [facility] Comment on above: Performed By: #### P HOS3, MG3 ####[address] [place], [place] Phosphoruson 07-31-2021 Phosphate [Mass/Vol] 5.6 mg/dL High 2.5-4.5 [facility] Comment on above: Performed By: #### P HOS3, MG3 ####[facility] [employer] [address] [place], [place] VL Venous Duplex US Lower Ex t Bilateralon 07-31-2021 VL Venous Duplex US Lower Ext Bilateral Normal [facility] Basic Metabolic Panelon 11-2 Calcium [Mass/Vol] 9.6 mg/dL Normal 8.4-10.4 [facility] Comment on above: Performed By: #### B MP3M, HEMDF ####[facility] [place], [place] Glucose [Mass/Vol] 106 mg/dL High 70-100 [facility] Comment on above: Performed By: #### B MP3M, HEMDF ####[facility] [address] [place], [place] Urea nitrogen [Mass/Vol] mg/dL Low 9-20 [facility] Comment on above: Performed By: #### B MP3M, HEMDF ####[facility] [place], [place] Anion gap [Moles/Vol] 11 mmol/L Normal 3-13 [facility] Comment on above: Performed By: #### B MP3M, HEMDF ####[facility] [address] [place], [place] CO2 [Moles/Vol] 24 mmol/L Normal 22-30 [facility] Comment on above: Performed By: #### Rubén MP3M, HEMDF ####[address] [place], [place] Creatinine [Mass/Vol] 0.59 mg/dL Normal 0.52-1.25 [facility] Comment on above: Performed By: #### B MP3M, HEMDF ####[address] [place], [place] eGFR OTHER > 90.0 Normal >60 [facility] Comment on above: Result Comment: KDIG O guidelines provide the following GFR categories:Stage GFR(ml/min/1.73 m2) TermsG1 >=90 Normal or highG2 60-89 Mildly decreased*G3a 45-59 Mildly to moderately eaneipeghX1o 30-44 Moderately to severely decreasedG4 15-29 Severely decreasedG5 <15 Kidney failure*Relative to young adult level.In the absence of evidence of kidney damage, neither GFRcategory G1 nor G2 fulfill the criteria for CKD.The CKD-EPI equation is validated in individuals 18 yearsof age and older. Currently the best equation forestimating glomerular filtration rate (GFR) from serumcreatinine in children is the Bedside Boyer equation.It is less accurate in patients with extremes of musclemass, restriction of dietary protein, ingestion of creatine,extra-renal metabolism of creatinine, or treatment withmedications that affect renal tubular creatinine secretion. Performed By: #### Rubén MENDENHALL3Peter, HEMDF ####[address] [place], [place] GFR/1.73 sq M.predicted among blacks MDRD (S/P/Bld) [Vol rate/Area] mL/min/{1.73_m2} Normal >60 [facility] Comment on above: Performed By: #### Rubén MENDENHALL3Peter, HEMDF ####[address] Chloride [Moles/Vol] 104 mmol/L Normal 98-107 [facility] Comment on above: Performed By: #### Rubén MENDENHALL3Peter, HEMDF ####[address] [place], [place] Potassium [Moles/Vol] 4.2 mmol/L Normal 3.5-5.1 [facility] Comment on above: Performed By: #### Rubén MENDENHALL3Peter, HEMDF ####[address] [place], [place] Sodium [Moles/Vol] 139 mmol/L Normal 135-145 [facility] Comment on above: Performed By: #### Rubén MP3M, HEMDF ####[facility] [id number] [place], [place] Calcium [Mass/Vol] 9.0 mg/dL Normal 8.4-10.4 [facility] Comment on above: Performed By: #### Rubén MP3M ####[address] [place], [place] Glucose [Mass/Vol] 92 mg/dL Normal 70-100 [facility] Comment on above: Performed By: #### B MP3M ####[facility] [id number] [place], [place] Urea nitrogen [Mass/Vol] mg/dL Low 9-20 [facility] Comment on above: Performed By: #### B MP3M ####[employer] [address] [place], [place] Anion gap [Moles/Vol] 7 mmol/L Normal 3-13 [facility] Comment on above: Performed By: #### B MP3M ####[facility] [id number] [place], [place] CO2 [Moles/Vol] 24 mmol/L Normal 22-30 [facility] Comment on above: Performed By: #### B MP3M ####[facility] [id number] [place], [place] Creatinine [Mass/Vol] 0.58 mg/dL Normal 0.52-1.25 [facility] Comment on above: Performed By: #### B MP3M ####[facility] [id number] [place], [place] eGFR OTHER > 90.0 Normal >60 [facility] Comment on above: Result Comment: KDIG O guidelines provide the following GFR categories:Stage GFR(ml/min/1.73 m2) TermsG1 >=90 Normal or highG2 60-89 Mildly decreased*G3a 45-59 Mildly to moderately cxrorqxayB1j 30-44 Moderately to severely decreasedG4 15-29 Severely decreasedG5 <15 Kidney failure*Relative to young adult level.In the absence of evidence of kidney damage, neither GFRcategory G1 nor G2 fulfill the criteria for CKD.The CKD-EPI equation is validated in individuals 18 yearsof age and older. Currently the best equation forestimating glomerular filtration rate (GFR) from serumcreatinine in children is the Bedside Boyer equation.It is less accurate in patients with extremes of musclemass, restriction of dietary protein, ingestion of creatine,extra-renal metabolism of creatinine, or treatment withmedications that affect renal tubular creatinine secretion. Performed By: #### B MP3M ####[address] [place], [place] GFR/1.73 sq M.predicted among blacks MDRD (S/P/Bld) [Vol rate/Area] mL/min/{1.73_m2} Normal >60 [facility] Comment on above: Performed By: #### B MP3M ####[address] [place], [place] Potassium [Moles/Vol] 4.3 mmol/L Normal 3.5-5.1 [facility] Comment on above: Performed By: #### B MP3M ####[address] [place], [place] Chloride [Moles/Vol] 105 mmol/L Normal 98-107 [facility] Comment on above: Performed By: #### B MP3M ####[address] [place], [place] Sodium [Moles/Vol] 136 mmol/L Normal 135-145 [facility] Comment on above: Performed By: #### B MP3M ####[address] [place], [place] CR Chest Portableon 07-30-20 21 CR Chest Portable Normal [facility] CULTURE BLOODon 07-30-2021 Microscopic examination of blood, culture CULTURE BLOOD --> Status: F No growth at 5 days. [facility] Comment on above: Performed By: #### C /BLD ####[address] [place], [place] CULTURE BLOOD (Two)on 2020 Microscopic examination of blood, culture CULTURE BLOOD (Two) --> Status: F No growth at 5 days. [facility] Comment on above: Performed By: #### C /BLT ####[address] [place], [place] Hemogram w/ Autodiffon 07-30 Abs Baso Cnt 0.1 10*3/uL Normal 0.0-0.2 [facility] Comment on above: Performed By: #### B MP3M, HEMDF ####[facility] [address] [place], [place] Abs Neutrophile Cnt 6.9 10*3/uL Normal 1.8-7.0 [facility] Comment on above: Performed By: #### B MP3M, HEMDF ####[address] [place], [place] Basophils/100 WBC (Bld) 0.5 % Normal 0.0-2.0 [facility] Comment on above: Performed By: #### B MP3M, HEMDF ####[address] [place], [place] Eosinophils (Bld) [#/Vol] 0.3 10*3/uL Normal 0.0-0.5 [facility] Comment on above: Performed By: #### B MP3M, HEMDF ####[address] [place], [place] Eosinophils/100 WBC (Bld) 2.9 % Normal 1.0-6.0 [facility] Comment on above: Performed By: #### B MP3M, HEMDF ####[facility] [id number] [place], [place] Erythrocyte distribution width (RBC) [Ratio] 19.7 % High 11.5-14.5 [facility] Comment on above: Performed By: #### B MP3M, HEMDF ####[address] [place], [place] Granulocytes/100 WBC (Bld) 72.7 % Normal 40.0-80.0 [facility] Comment on above: Performed By: #### B MP3M, HEMDF ####[facility] [id number] [place], [place] Hematocrit (Bld) [Volume fraction] 38.9 % Normal 35.0-47.0 [facility] Comment on above: Performed By: #### B MP3M, HEMDF ####[address] [place], [place] Hemoglobin (Bld) [Mass/Vol] 12.0 g/dL Normal 11.7-16.0 [facility] Comment on above: Performed By: #### Rubén CAPONE, HEMDF ####[address] [place], [place] Lymphocytes (Bld) [#/Vol] 1.8 10*3/uL Normal 1.0-4.3 [facility] Comment on above: Performed By: #### Rubén MENDENHALL3Peter, HEMDF ####[address] [place], [place] Lymphocytes/100 WBC (Bld) 19.0 % Low 20.0-40.0 [facility] Comment on above: Performed By: #### Rubén MENDENHALL3Peter, HEMDF ####[address] MCH (RBC) [Entitic mass] 24.0 pg Low 26.0-34.0 [facility] Comment on above: Performed By: #### Rubén MENDENHALL3Peter, HEMDF ####[address] MCHC 30.8 % Low 32.0-36.0 [facility] Comment on above: Performed By: #### Rubén MENDENHALL3Peter, HEMDF ####[address] MCV (RBC) [Entitic vol] 78.0 fL Low 79.0-98.0 [facility] Comment on above: Performed By: #### Rubén MENDENHALL3Peter, HEMDF ####[address] Monocytes (Bld) [#/Vol] 0.5 10*3/uL Normal 0.0-0.8 [facility] Comment on above: Performed By: #### Rubén MP3Peter, HEMDF ####[address] Monocytes/100 WBC (Bld) 4.9 % Normal 2.0-10.0 [facility] Comment on above: Performed By: #### Rubén MP3Peter, HEMDF ####[address] [place], [place] Platelet mean volume (Bld) [Entitic vol] 7.8 fL Normal 7.4-10.4 [facility] Comment on above: Performed By: #### B MP3M, HEMDF ####[address] [place], [place] Platelets (Bld) [#/Vol] 222 10*3/uL Normal 140-440 [facility] Comment on above: Performed By: #### B MP3M, HEMDF ####[address] [place], [place] RBC (Bld) [#/Vol] 4.99 10*6/uL Normal 3.80-5.20 [facility] Comment on above: Performed By: #### B MP3M, HEMDF ####[address] [place], [place] WBC (Bld) [#/Vol] 9.5 10*3/uL Normal 3.6-10.7 [facility] Comment on above: Performed By: #### Rubén MP3M, HEMDF ####[address] [place], [place] Abs Baso Cnt 0.0 10*3/uL Normal 0.0-0.2 [facility] Comment on above: Performed By: #### M G3, PHOS3, HEMDF ####[address] [place], [place] Abs Neutrophile Cnt 3.1 10*3/uL Normal 1.8-7.0 [facility] Comment on above: Performed By: #### M G3, PHOS3, HEMDF ####[address] [place], [place] Basophils/100 WBC (Bld) 0.6 % Normal 0.0-2.0 [facility] Comment on above: Performed By: #### Peter G3, PHOS3, HEMDF ####[address] [place], [place] Eosinophils (Bld) [#/Vol] 0.1 10*3/uL Normal 0.0-0.5 [facility] Comment on above: Performed By: #### M G3, PHOS3, HEMDF ####[facility] [place], [place] Eosinophils/100 WBC (Bld) 2.4 % Normal 1.0-6.0 [facility] Comment on above: Performed By: #### M Dimitrios, PHOS3, HEMDF ####[address] [place], [place] Erythrocyte distribution width (RBC) [Ratio] 20.0 % High 11.5-14.5 [facility] Comment on above: Performed By: #### Peter G3, PHOS3, HEMDF ####[address] [place], [place] Granulocytes/100 WBC (Bld) 50.9 % Normal 40.0-80.0 [facility] Comment on above: Performed By: #### M Dimitrios, PHOS3, HEMDF ####[facility] [id number] [place], [place] Hematocrit (Bld) [Volume fraction] 34.1 % Low 35.0-47.0 [facility] Comment on above: Performed By: #### M G3, PHOS3, HEMDF ####[facility] [id number] [place], [place] Hemoglobin (Bld) [Mass/Vol] 10.7 g/dL Low 11.7-16.0 [facility] Comment on above: Performed By: #### M G3, PHOS3, HEMDF ####[facility] [id number] [place], [place] Lymphocytes (Bld) [#/Vol] 2.4 10*3/uL Normal 1.0-4.3 [facility] Comment on above: Performed By: #### M G3, PHOS3, HEMDF ####[address] [place], [place] Lymphocytes/100 WBC (Bld) 40.1 % High 20.0-40.0 [facility] Comment on above: Performed By: #### M G3, PHOS3, HEMDF ####[address] [place], [place] MCH (RBC) [Entitic mass] 24.2 pg Low 26.0-34.0 [facility] Comment on above: Performed By: #### M G3, PHOS3, HEMDF ####[address] [place] MCHC 31.4 % Low 32.0-36.0 [facility] Comment on above: Performed By: #### Peter G3, PHOS3, HEMDF ####[address] [place], [place] MCV (RBC) [Entitic vol] 77.1 fL Low 79.0-98.0 [facility] Comment on above: Performed By: #### Peter G3, PHOS3, HEMDF ####[address] [place], [place] Monocytes (Bld) [#/Vol] 0.4 10*3/uL Normal 0.0-0.8 [facility] Comment on above: Performed By: #### Peter G3, PHOS3, HEMDF ####[address] [place], [place] Monocytes/100 WBC (Bld) 6.0 % Normal 2.0-10.0 [facility] Comment on above: Performed By: #### Peter G3, PHOS3, HEMDF ####[address] [place] Platelet mean volume (Bld) [Entitic vol] 7.9 fL Normal 7.4-10.4 [facility] Comment on above: Performed By: #### M G3, PHOS3, HEMDF ####[address] [place] Platelets (Bld) [#/Vol] 176 10*3/uL Normal 140-440 [facility] Comment on above: Performed By: #### Peter G3, PHOS3, HEMDF ####[address] [place], [place] RBC (Bld) [#/Vol] 4.42 10*6/uL Normal 3.80-5.20 [facility] Comment on above: Performed By: #### M G3, PHOS3, HEMDF ####[address] [place] WBC (Bld) [#/Vol] 6.1 10*3/uL Normal 3.6-10.7 [facility] Comment on above: Performed By: #### M G3, PHOS3, HEMDF ####[address] [facility], [place] Magnesiumon 07-30-2021 Magnesium [Mass/Vol] 1.9 mg/dL Normal 1.6-2.3 [facility] Comment on above: Performed By: #### Peter G3, PHOS3, HEMDF ####[address] [place], [place] Phosphoruson 07-30-2021 Phosphate [Mass/Vol] 4.9 mg/dL High 2.5-4.5 [facility] Comment on above: Performed By: #### M Dimitrios, PHOS3, HEMDF ####[address] [place], [place] Troponin Ion 07-30-2021 Troponin I.cardiac [Mass/Vol] ng/mL Normal 0.000-0.03 4 [facility] Comment on above: Result Comment: . Performed By: #### T ROPN ####[address] [facility], [place] Basic Metabolic Panelon 07-09 Calcium [Mass/Vol] 9.6 mg/dL Normal 8.4-10.4 [facility] Comment on above: Performed By: #### B MP3M ####[address] [place], [place] Glucose [Mass/Vol] 114 mg/dL High 70-100 [facility] Comment on above: Performed By: #### B MP3M ####[address] [place], [place] Anion gap [Moles/Vol] 10 mmol/L Normal 3-13 [facility] Comment on above: Performed By: #### B MP3M ####[address] [place], [place] CO2 [Moles/Vol] 24 mmol/L Normal 22-30 [facility] Comment on above: Performed By: #### B MP3M ####[address] [place], [place] Creatinine [Mass/Vol] 0.57 mg/dL Normal 0.52-1.25 [facility] Comment on above: Performed By: #### B MP3M ####[address] [place], [place] eGFR OTHER > 90.0 Normal >60 [facility] Comment on above: Result Comment: KDIG O guidelines provide the following GFR categories:Stage GFR(ml/min/1.73 m2) TermsG1 >=90 Normal or highG2 60-89 Mildly decreased*G3a 45-59 Mildly to moderately [id number] 30-44 Moderately to severely decreasedG4 15-29 Severely decreasedG5 <15 Kidney failure*Relative to young adult level.In the absence of evidence of kidney damage, neither GFRcategory G1 nor G2 fulfill the criteria for CKD.The CKD-EPI equation is validated in individuals 18 yearsof age and older. Currently the best equation forestimating glomerular filtration rate (GFR) from serumcreatinine in children is the Bedside Boyer equation.It is less accurate in patients with extremes of musclemass, restriction of dietary protein, ingestion of creatine,extra-renal metabolism of creatinine, or treatment withmedications that affect renal tubular creatinine secretion. Performed By: #### B MP3M ####[facility] [address] [id number] [place], [place] GFR/1.73 sq M.predicted among blacks MDRD (S/P/Bld) [Vol rate/Area] mL/min/{1.73_m2} Normal >60 [facility] Comment on above: Performed By: #### B MP3M ####[facility] [id number] [place], [place] Urea nitrogen [Mass/Vol] 5 mg/dL Low 9-20 [facility] Comment on above: Performed By: #### B MP3M ####[address] Chloride [Moles/Vol] 104 mmol/L Normal 98-107 [facility] Comment on above: Performed By: #### B MP3M ####[address] Potassium [Moles/Vol] 4.5 mmol/L Normal 3.5-5.1 [facility] Comment on above: Performed By: #### B MP3M ####[address] Sodium [Moles/Vol] 138 mmol/L Normal 135-145 [facility] Comment on above: Performed By: #### B MP3M ####[address] Hemogram w/ Autodiffon 07-29 Abs Baso Cnt 0.0 10*3/uL Normal 0.0-0.2 [facility] Comment on above: Performed By: #### H EMDF ####[id number] [place], [place] Abs Neutrophile Cnt 6.2 10*3/uL Normal 1.8-7.0 [facility] Comment on above: Performed By: #### H EMDF ####[address] Basophils/100 WBC (Bld) 0.2 % Normal 0.0-2.0 [facility] Comment on above: Performed By: #### H EMDF ####[address] Eosinophils (Bld) [#/Vol] 0.0 10*3/uL Normal 0.0-0.5 [facility] Comment on above: Performed By: #### H EMDF ####[address] [place] Eosinophils/100 WBC (Bld) 0.2 % Low 1.0-6.0 [facility] Comment on above: Performed By: #### H EMDF ####[address] Erythrocyte distribution width (RBC) [Ratio] 19.6 % High 11.5-14.5 [facility] Comment on above: Performed By: #### H EMDF ####[address] Granulocytes/100 WBC (Bld) 83.1 % High 40.0-80.0 [facility] Comment on above: Performed By: #### H EMDF ####[address] Hematocrit (Bld) [Volume fraction] 36.1 % Normal 35.0-47.0 [facility] Comment on above: Performed By: #### H EMDF ####[address] Hemoglobin (Bld) [Mass/Vol] 11.5 g/dL Low 11.7-16.0 [facility] Comment on above: Performed By: #### H EMDF ####[address] Lymphocytes (Bld) [#/Vol] 0.8 10*3/uL Low 1.0-4.3 [facility] Comment on above: Performed By: #### H EMDF ####[address] Lymphocytes/100 WBC (Bld) 11.0 % Low 20.0-40.0 [facility] Comment on above: Performed By: #### H EMDF ####[address] MCH (RBC) [Entitic mass] 24.4 pg Low 26.0-34.0 [facility] Comment on above: Performed By: #### H EMDF ####[address], [place] MCHC 31.9 % Low 32.0-36.0 [facility] Comment on above: Performed By: #### H EMDF ####[address] MCV (RBC) [Entitic vol] 76.5 fL Low 79.0-98.0 [facility] Comment on above: Performed By: #### H EMDF ####[address] Monocytes (Bld) [#/Vol] 0.4 10*3/uL Normal 0.0-0.8 [facility] Comment on above: Performed By: #### H EMDF ####[address] Monocytes/100 WBC (Bld) 5.5 % Normal 2.0-10.0 [facility] Comment on above: Performed By: #### H EMDF ####[address] Platelet mean volume (Bld) [Entitic vol] 8.0 fL Normal 7.4-10.4 [facility] Comment on above: Performed By: #### H EMDF ####[address] Platelets (Bld) [#/Vol] 206 10*3/uL Normal 140-440 [facility] Comment on above: Performed By: #### H EMDF ####[address] RBC (Bld) [#/Vol] 4.72 10*6/uL Normal 3.80-5.20 [facility] Comment on above: Performed By: #### H EMDF ####[address] WBC (Bld) [#/Vol] 7.5 10*3/uL Normal 3.6-10.7 [facility] Comment on above: Performed By: #### H EMDF ####[address] [place], [place] Magnesiumon 07-29-2021 Magnesium [Mass/Vol] 2.2 mg/dL Normal 1.6-2.3 [facility] Comment on above: Performed By: #### P HOS3, MG3 ####[address] [place] Phosphoruson 07-29-2021 Phosphate [Mass/Vol] 3.9 mg/dL Normal 2.5-4.5 [facility] Comment on above: Performed By: #### P HOS3, MG3 ####[address] [place] Basic Metabolic Panelon 07-09 Calcium [Mass/Vol] 9.2 mg/dL Normal 8.4-10.4 [facility] Comment on above: Performed By: #### H EMDF, BMP3M, PHOS3, MG3 ####[address] [place], [place] Anion gap [Moles/Vol] 8 mmol/L Normal 3-13 [facility] Comment on above: Performed By: #### H EMDF, BMP3M, PHOS3, MG3 ####[address] [place] CO2 [Moles/Vol] 26 mmol/L Normal 22-30 [facility] Comment on above: Performed By: #### H EMDF, BMP3M, PHOS3, MG3 ####[address] [place] Creatinine [Mass/Vol] 0.58 mg/dL Normal 0.52-1.25 [facility] Comment on above: Performed By: #### H EMDF, BMP3M, PHOS3, MG3 ####[address] [place], [place] eGFR OTHER > 90.0 Normal >60 [facility] Comment on above: Result Comment: KDIG O guidelines provide the following GFR categories:Stage GFR(ml/min/1.73 m2) TermsG1 >=90 Normal or highG2 60-89 Mildly decreased*G3a 45-59 Mildly to moderately iynxescktN7c 30-44 Moderately to severely decreasedG4 15-29 Severely decreasedG5 <15 Kidney failure*Relative to young adult level.In the absence of evidence of kidney damage, neither GFRcategory G1 nor G2 fulfill the criteria for CKD.The CKD-EPI equation is validated in individuals 18 yearsof age and older. Currently the best equation forestimating glomerular filtration rate (GFR) from serumcreatinine in children is the Bedside Boyer equation.It is less accurate in patients with extremes of musclemass, restriction of dietary protein, ingestion of creatine,extra-renal metabolism of creatinine, or treatment withmedications that affect renal tubular creatinine secretion. Performed By: #### H EMDF, BMP3M, PHOS3, MG3 ####[facility] [id number] [place], [place] GFR/1.73 sq M.predicted among blacks MDRD (S/P/Bld) [Vol rate/Area] mL/min/{1.73_m2} Normal >60 [facility] Comment on above: Performed By: #### H EMDF, BMP3M, PHOS3, MG3 ####[facility] [id number] [place] Glucose [Mass/Vol] 96 mg/dL Normal 70-100 [facility] Comment on above: Performed By: #### H EMDF, BMP3M, PHOS3, MG3 ####[address] [place], [place] Urea nitrogen [Mass/Vol] 2 mg/dL Low 9-20 [facility] Comment on above: Performed By: #### H EMDF, BMP3M, PHOS3, MG3 ####[address] [place], [place] Chloride [Moles/Vol] 104 mmol/L Normal 98-107 [facility] Comment on above: Performed By: #### H EMDF, BMP3M, PHOS3, MG3 ####[facility] [id number] [place] Potassium [Moles/Vol] 3.7 mmol/L Normal 3.5-5.1 [facility] Comment on above: Performed By: #### H EMDF, BMP3M, PHOS3, MG3 ####[address] [place], [place] Sodium [Moles/Vol] 138 mmol/L Normal 135-145 [facility] Comment on above: Performed By: #### H EMDF, BMP3M, PHOS3, MG3 ####[address] CR Urography Retrograde w/ + w/o KUBon 07-28-2021 CR Urography Retrograde w/ + w/o KUB Normal [facility] Hemogram w/ Autodiffon 07-28 Abs Baso Cnt 0.0 10*3/uL Normal 0.0-0.2 [facility] Comment on above: Performed By: #### H EMDF, BMP3M, PHOS3, MG3 ####[address] Abs Neutrophile Cnt 2.1 10*3/uL Normal 1.8-7.0 [facility] Comment on above: Performed By: #### H EMDF, BMP3M, PHOS3, MG3 ####[address] [place], [place] Basophils/100 WBC (Bld) 0.7 % Normal 0.0-2.0 [facility] Comment on above: Performed By: #### H EMDF, BMP3M, PHOS3, MG3 ####[address] [place] Eosinophils (Bld) [#/Vol] 0.2 10*3/uL Normal 0.0-0.5 [facility] Comment on above: Performed By: #### H EMDF, BMP3M, PHOS3, MG3 ####[address] [place] Eosinophils/100 WBC (Bld) 3.5 % Normal 1.0-6.0 [facility] Comment on above: Performed By: #### H EMDF, BMP3M, PHOS3, MG3 ####[address] [place], [place] Erythrocyte distribution width (RBC) [Ratio] 19.8 % High 11.5-14.5 [facility] Comment on above: Performed By: #### H EMDF, BMP3M, PHOS3, MG3 ####[address] Granulocytes/100 WBC (Bld) 46.0 % Normal 40.0-80.0 [facility] Comment on above: Performed By: #### H EMDF, BMP3M, PHOS3, MG3 ####[address] Hematocrit (Bld) [Volume fraction] 36.3 % Normal 35.0-47.0 [facility] Comment on above: Performed By: #### H EMDF, BMP3M, PHOS3, MG3 ####[address] Hemoglobin (Bld) [Mass/Vol] 11.4 g/dL Low 11.7-16.0 [facility] Comment on above: Performed By: #### H EMDF, BMP3M, PHOS3, MG3 ####[address] Lymphocytes (Bld) [#/Vol] 1.8 10*3/uL Normal 1.0-4.3 [facility] Comment on above: Performed By: #### H EMDF, BMP3M, PHOS3, MG3 ####[address] Lymphocytes/100 WBC (Bld) 39.7 % Normal 20.0-40.0 [facility] Comment on above: Performed By: #### H EMDF, BMP3M, PHOS3, MG3 ####[address] MCH (RBC) [Entitic mass] 24.2 pg Low 26.0-34.0 [facility] Comment on above: Performed By: #### H EMDF, BMP3M, PHOS3, MG3 ####[address] [place] MCHC 31.4 % Low 32.0-36.0 [facility] Comment on above: Performed By: #### H EMDF, BMP3M, PHOS3, MG3 ####[address] [place] MCV (RBC) [Entitic vol] 77.3 fL Low 79.0-98.0 [facility] Comment on above: Performed By: #### H EMDF, BMP3M, PHOS3, MG3 ####[address] Monocytes (Bld) [#/Vol] 0.5 10*3/uL Normal 0.0-0.8 [facility] Comment on above: Performed By: #### H EMDF, BMP3M, PHOS3, MG3 ####[address] Monocytes/100 WBC (Bld) 10.1 % High 2.0-10.0 [facility] Comment on above: Performed By: #### H EMDF, BMP3M, PHOS3, MG3 ####[address] [place] Platelet mean volume (Bld) [Entitic vol] 8.0 fL Normal 7.4-10.4 [facility] Comment on above: Performed By: #### H EMDF, BMP3M, PHOS3, MG3 ####[address] Platelets (Bld) [#/Vol] 218 10*3/uL Normal 140-440 [facility] Comment on above: Performed By: #### H EMDF, BMP3M, PHOS3, MG3 ####[address] RBC (Bld) [#/Vol] 4.69 10*6/uL Normal 3.80-5.20 [facility] Comment on above: Performed By: #### H EMDF, BMP3M, PHOS3, MG3 ####[address] [place] WBC (Bld) [#/Vol] 4.6 10*3/uL Normal 3.6-10.7 [facility] Comment on above: Performed By: #### H EMDF, BMP3M, PHOS3, MG3 ####[address] [place], [place] Magnesiumon 07-28-2021 Magnesium [Mass/Vol] 2.1 mg/dL Normal 1.6-2.3 [facility] Comment on above: Performed By: #### H EMDF, BMP3M, PHOS3, MG3 ####[address] [place], [place] Op Noteon 07-28-2021 Op Note Normal [facility] Phosphoruson 07-28-2021 Phosphate [Mass/Vol] 4.4 mg/dL Normal 2.5-4.5 [facility] Comment on above: Performed By: #### H EMDF, BMP3M, PHOS3, MG3 ####[address] [place], [place] Basic Metabolic Panelon 07-09 Anion gap [Moles/Vol] 8 mmol/L Normal 3-13 [facility] Comment on above: Performed By: #### H EMDF, BMP3M ####[address] [place] Calcium [Mass/Vol] 9.0 mg/dL Normal 8.4-10.4 [facility] Comment on above: Performed By: #### H EMDF, BMP3M ####[address] [place] CO2 [Moles/Vol] 26 mmol/L Normal 22-30 [facility] Comment on above: Performed By: #### H EMDF, BMP3M ####[address] [place] Creatinine [Mass/Vol] 0.54 mg/dL Normal 0.52-1.25 [facility] Comment on above: Performed By: #### H GURMEET VALENTINO3M ####[address] [place], [place] eGFR OTHER > 90.0 Normal >60 [facility] Comment on above: Result Comment: KDIG O guidelines provide the following GFR categories:Stage GFR(ml/min/1.73 m2) TermsG1 >=90 Normal or highG2 60-89 Mildly decreased*G3a 45-59 Mildly to moderately vohzcybiaA4n 30-44 Moderately to severely decreasedG4 15-29 Severely decreasedG5 <15 Kidney failure*Relative to young adult level.In the absence of evidence of kidney damage, neither GFRcategory G1 nor G2 fulfill the criteria for CKD.The CKD-EPI equation is validated in individuals 18 yearsof age and older. Currently the best equation forestimating glomerular filtration rate (GFR) from serumcreatinine in children is the Bedside Boyer equation.It is less accurate in patients with extremes of musclemass, restriction of dietary protein, ingestion of creatine,extra-renal metabolism of creatinine, or treatment withmedications that affect renal tubular creatinine secretion. Performed By: #### SLIM TAYLOR ####[facility] [id number] [place], [place] GFR/1.73 sq M.predicted among blacks MDRD (S/P/Bld) [Vol rate/Area] mL/min/{1.73_m2} Normal >60 [facility] Comment on above: Performed By: #### GURMEET TAYLOR3Peter ####[facility] [id number] [place] Glucose [Mass/Vol] 90 mg/dL Normal 70-100 [facility] Comment on above: Performed By: #### GURMEET TAYLOR3M ####[facility] [id number] [place], [place] Urea nitrogen [Mass/Vol] 4 mg/dL Low 9-20 [facility] Comment on above: Performed By: #### SLIM TAYLOR ####[facility] [id number] [place] Chloride [Moles/Vol] 104 mmol/L Normal 98-107 [facility] Comment on above: Performed By: #### H CHELSY BMP3M ####[facility] [place], [place] Potassium [Moles/Vol] 4.7 mmol/L Normal 3.5-5.1 [facility] Comment on above: Result Comment: Mode rately hemolysed, interpret with caution. Performed By: #### H CHELSY BMP3M ####[address] [place], [place] Sodium [Moles/Vol] 138 mmol/L Normal 135-145 [facility] Comment on above: Performed By: #### H CHELSY BMP3M ####[address] [place] Hemogram w/ Autodiffon 07-27 Abs Baso Cnt 0.0 10*3/uL Normal 0.0-0.2 [facility] Comment on above: Performed By: #### H CHELSY BMP3M ####[address] [place] Abs Neutrophile Cnt 2.4 10*3/uL Normal 1.8-7.0 [facility] Comment on above: Performed By: #### H CHELSY BMP3M ####[address] [place] Basophils/100 WBC (Bld) 0.7 % Normal 0.0-2.0 [facility] Comment on above: Performed By: #### H EMDLindsey BMP3M ####[address] [place] Eosinophils (Bld) [#/Vol] 0.2 10*3/uL Normal 0.0-0.5 [facility] Comment on above: Performed By: #### H EMDF BMP3M ####[address] [place] Eosinophils/100 WBC (Bld) 3.2 % Normal 1.0-6.0 [facility] Comment on above: Performed By: #### H CHELSY BMP3M ####[address] Erythrocyte distribution width (RBC) [Ratio] 20.0 % High 11.5-14.5 [facility] Comment on above: Performed By: #### H CHELSY BMP3M ####[address] Granulocytes/100 WBC (Bld) 44.8 % Normal 40.0-80.0 [facility] Comment on above: Performed By: #### H CHELSY BMP3M ####[address] Hematocrit (Bld) [Volume fraction] 34.7 % Low 35.0-47.0 [facility] Comment on above: Performed By: #### H CHELSY BMP3M ####[address] Hemoglobin (Bld) [Mass/Vol] 10.9 g/dL Low 11.7-16.0 [facility] Comment on above: Performed By: #### H CHELSY BMP3M ####[address] Lymphocytes (Bld) [#/Vol] 2.3 10*3/uL Normal 1.0-4.3 [facility] Comment on above: Performed By: #### H CHELSY BMP3M ####[address] Lymphocytes/100 WBC (Bld) 43.8 % High 20.0-40.0 [facility] Comment on above: Performed By: #### H CHELSY BMP3M ####[address] MCH (RBC) [Entitic mass] 24.2 pg Low 26.0-34.0 [facility] Comment on above: Performed By: #### H CHELSY BMP3M ####[address] [place] [place] MCHC 31.4 % Low 32.0-36.0 [facility] Comment on above: Performed By: #### H CHELSY BMP3M ####[address] [place] MCV (RBC) [Entitic vol] 76.9 fL Low 79.0-98.0 [facility] Comment on above: Performed By: #### H CHELSY BMP3M ####[address] [place] Monocytes (Bld) [#/Vol] 0.4 10*3/uL Normal 0.0-0.8 [facility] Comment on above: Performed By: #### H CHELSY BMP3M ####[address] Monocytes/100 WBC (Bld) 7.5 % Normal 2.0-10.0 [facility] Comment on above: Performed By: #### H CHELSY BMP3M ####[address] [place] Platelet mean volume (Bld) [Entitic vol] 8.3 fL Normal 7.4-10.4 [facility] Comment on above: Performed By: #### H CHELSY BMP3M ####[address] [place] Platelets (Bld) [#/Vol] 252 10*3/uL Normal 140-440 [facility] Comment on above: Performed By: #### H EMDLindsey BMP3M ####[address] [place] RBC (Bld) [#/Vol] 4.52 10*6/uL Normal 3.80-5.20 [facility] Comment on above: Performed By: #### H EMDF BMP3M ####[address] [place] WBC (Bld) [#/Vol] 5.3 10*3/uL Normal 3.6-10.7 [facility] Comment on above: Performed By: #### H EMDF, BMP3M ####[address] [place], [place] Basic Metabolic Panelon 11- Anion gap [Moles/Vol] 10 mmol/L Normal 3-13 [facility] Comment on above: Performed By: #### B MP3M ####[address] [place] Calcium [Mass/Vol] 9.4 mg/dL Normal 8.4-10.4 [facility] Comment on above: Performed By: #### B MP3M ####[address] [place] CO2 [Moles/Vol] 24 mmol/L Normal 22-30 [facility] Comment on above: Performed By: #### B MP3M ####[address] [place] Glucose [Mass/Vol] 86 mg/dL Normal 70-100 [facility] Comment on above: Performed By: #### B MP3M ####[address] [place] Urea nitrogen [Mass/Vol] 4 mg/dL Low 9-20 [facility] Comment on above: Performed By: #### B MP3M ####[address] [place] Creatinine [Mass/Vol] 0.55 mg/dL Normal 0.52-1.25 [facility] Comment on above: Performed By: #### B MP3M ####[facility] [id number] [place] eGFR OTHER > 90.0 Normal >60 [facility] Comment on above: Result Comment: KDIG O guidelines provide the following GFR categories:Stage GFR(ml/min/1.73 m2) TermsG1 >=90 Normal or highG2 60-89 Mildly decreased*G3a 45-59 Mildly to moderately vchkleefdV8e 30-44 Moderately to severely decreasedG4 15-29 Severely decreasedG5 <15 Kidney failure*Relative to young adult level.In the absence of evidence of kidney damage, neither GFRcategory G1 nor G2 fulfill the criteria for CKD.The CKD-EPI equation is validated in individuals 18 yearsof age and older. Currently the best equation forestimating glomerular filtration rate (GFR) from serumcreatinine in children is the Bedside Boyer equation.It is less accurate in patients with extremes of musclemass, restriction of dietary protein, ingestion of creatine,extra-renal metabolism of creatinine, or treatment withmedications that affect renal tubular creatinine secretion. Performed By: #### B MP3M ####[address] [place], [place] GFR/1.73 sq M.predicted among blacks MDRD (S/P/Bld) [Vol rate/Area] mL/min/{1.73_m2} Normal >60 [facility] Comment on above: Performed By: #### B MP3M ####[address] [place] Potassium [Moles/Vol] 3.9 mmol/L Normal 3.5-5.1 [facility] Comment on above: Performed By: #### B MP3M ####[address] [place] Sodium [Moles/Vol] 138 mmol/L Normal 135-145 [facility] Comment on above: Performed By: #### B MP3M ####[address] [place] Chloride [Moles/Vol] 104 mmol/L Normal 98-107 [facility] Comment on above: Performed By: #### B MP3M ####[address] [place] CULTURE URINEon 07-26-2021 CULTURE URINE 1 Organism Tiffanie lusitaniae 10,000-50,000 CFU/ml Normal [facility] Comment on above: Performed By: #### C UA2, C/UR ####[address] [place] Hemogram w/ Autodiffon 07-26 Abs Baso Cnt 0.1 10*3/uL Normal 0.0-0.2 [facility] Comment on above: Performed By: #### H EMDF ####[address] Abs Neutrophile Cnt 2.7 10*3/uL Normal 1.8-7.0 [facility] Comment on above: Performed By: #### H EMDF ####[address] Basophils/100 WBC (Bld) 1.1 % Normal 0.0-2.0 [facility] Comment on above: Performed By: #### H EMDF ####[address] Eosinophils (Bld) [#/Vol] 0.2 10*3/uL Normal 0.0-0.5 [facility] Comment on above: Performed By: #### H EMDF ####[address] Eosinophils/100 WBC (Bld) 3.7 % Normal 1.0-6.0 [facility] Comment on above: Performed By: #### H EMDF ####[address] Erythrocyte distribution width (RBC) [Ratio] 20.0 % High 11.5-14.5 [facility] Comment on above: Performed By: #### H EMDF ####[address] Granulocytes/100 WBC (Bld) 49.1 % Normal 40.0-80.0 [facility] Comment on above: Performed By: #### H EMDF ####[address] Hematocrit (Bld) [Volume fraction] 37.5 % Normal 35.0-47.0 [facility] Comment on above: Performed By: #### H EMDF ####[address] Hemoglobin (Bld) [Mass/Vol] 11.9 g/dL Normal 11.7-16.0 [facility] Comment on above: Performed By: #### H EMDF ####[address] Lymphocytes (Bld) [#/Vol] 2.1 10*3/uL Normal 1.0-4.3 [facility] Comment on above: Performed By: #### H EMDF ####[address] Lymphocytes/100 WBC (Bld) 37.5 % Normal 20.0-40.0 [facility] Comment on above: Performed By: #### H EMDF ####[address] MCH (RBC) [Entitic mass] 24.3 pg Low 26.0-34.0 [facility] Comment on above: Performed By: #### H EMDF ####[address] MCHC 31.8 % Low 32.0-36.0 [facility] Comment on above: Performed By: #### H EMDF ####[address] MCV (RBC) [Entitic vol] 76.3 fL Low 79.0-98.0 [facility] Comment on above: Performed By: #### H EMDF ####[address] Monocytes (Bld) [#/Vol] 0.5 10*3/uL Normal 0.0-0.8 [facility] Comment on above: Performed By: #### H EMDF ####[address] Monocytes/100 WBC (Bld) 8.6 % Normal 2.0-10.0 [facility] Comment on above: Performed By: #### H EMDF ####[address] Platelet mean volume (Bld) [Entitic vol] 7.8 fL Normal 7.4-10.4 [facility] Comment on above: Performed By: #### H EMDF ####[address] [place] Platelets (Bld) [#/Vol] 227 10*3/uL Normal 140-440 [facility] Comment on above: Performed By: #### H EMDF ####[address] RBC (Bld) [#/Vol] 4.92 10*6/uL Normal 3.80-5.20 [facility] Comment on above: Performed By: #### H EMDF ####[address] [place] WBC (Bld) [#/Vol] 5.6 10*3/uL Normal 3.6-10.7 [facility] Comment on above: Performed By: #### H EMDF ####[address] Magnesiumon 07-26-2021 Magnesium [Mass/Vol] 2.0 mg/dL Normal 1.6-2.3 [facility] Comment on above: Performed By: #### P HOS3, MG3 ####[address] Phosphoruson 07-26-2021 Phosphate [Mass/Vol] 4.2 mg/dL Normal 2.5-4.5 [facility] Comment on above: Performed By: #### P HOS3, MG3 ####[address] Basic Metabolic Panelon 07-08 Calcium [Mass/Vol] 8.9 mg/dL Normal 8.4-10.4 [facility] Comment on above: Performed By: #### H EMDF, BMP3M, LFT3, MG3 ####[address] Anion gap [Moles/Vol] 10 mmol/L Normal 3-13 [facility] Comment on above: Performed By: #### H EMDF, BMP3M, LFT3, MG3 ####[facility] [address] [place], [place] CO2 [Moles/Vol] 25 mmol/L Normal 22-30 [facility] Comment on above: Performed By: #### H EMDF, BMP3M, LFT3, MG3 ####[facility] [address] [place], [place] Creatinine [Mass/Vol] 0.54 mg/dL Normal 0.52-1.25 [facility] Comment on above: Performed By: #### H EMDF, BMP3M, LFT3, MG3 ####[facility] [address] [place], [place] eGFR OTHER > 90.0 Normal >60 [facility] Comment on above: Result Comment: KDIG O guidelines provide the following GFR categories:Stage GFR(ml/min/1.73 m2) TermsG1 >=90 Normal or highG2 60-89 Mildly decreased*G3a 45-59 Mildly to moderately [id number] 30-44 Moderately to severely decreasedG4 15-29 Severely decreasedG5 <15 Kidney failure*Relative to young adult level.In the absence of evidence of kidney damage, neither GFRcategory G1 nor G2 fulfill the criteria for CKD.The CKD-EPI equation is validated in individuals 18 yearsof age and older. Currently the best equation forestimating glomerular filtration rate (GFR) from serumcreatinine in children is the Bedside Boyer equation.It is less accurate in patients with extremes of musclemass, restriction of dietary protein, ingestion of creatine,extra-renal metabolism of creatinine, or treatment withmedications that affect renal tubular creatinine secretion. Performed By: #### H EMDF, BMP3M, LFT3, MG3 ####[facility] [place], [place] GFR/1.73 sq M.predicted among blacks MDRD (S/P/Bld) [Vol rate/Area] mL/min/{1.73_m2} Normal >60 [facility] Comment on above: Performed By: #### H EMDF, BMP3M, LFT3, MG3 ####[address] Glucose [Mass/Vol] 109 mg/dL High 70-100 [facility] Comment on above: Performed By: #### H EMDF, BMP3M, LFT3, MG3 ####[address] Urea nitrogen [Mass/Vol] 8 mg/dL Low 9-20 [facility] Comment on above: Performed By: #### H EMDF, BMP3M, LFT3, MG3 ####[address] Potassium [Moles/Vol] 3.3 mmol/L Low 3.5-5.1 [facility] Comment on above: Performed By: #### H EMDF, BMP3M, LFT3, MG3 ####[address] Chloride [Moles/Vol] 101 mmol/L Normal 98-107 [facility] Comment on above: Performed By: #### H EMDF, BMP3M, LFT3, MG3 ####[address] Sodium [Moles/Vol] 136 mmol/L Normal 135-145 [facility] Comment on above: Performed By: #### H EMDF, BMP3M, LFT3, MG3 ####[address] Hemogram w/ Autodiffon 07-25 Abs Baso Cnt 0.0 10*3/uL Normal 0.0-0.2 [facility] Comment on above: Performed By: #### H EMDF, BMP3M, LFT3, MG3 ####[address] Abs Neutrophile Cnt 5.1 10*3/uL Normal 1.8-7.0 [facility] Comment on above: Performed By: #### H EMDF, BMP3M, LFT3, MG3 ####[address] Basophils/100 WBC (Bld) 0.6 % Normal 0.0-2.0 [facility] Comment on above: Performed By: #### H EMDF, BMP3M, LFT3, MG3 ####[address] Eosinophils (Bld) [#/Vol] 0.2 10*3/uL Normal 0.0-0.5 [facility] Comment on above: Performed By: #### H EMDF, BMP3M, LFT3, MG3 ####[address] Eosinophils/100 WBC (Bld) 2.3 % Normal 1.0-6.0 [facility] Comment on above: Performed By: #### H EMDF, BMP3M, LFT3, MG3 ####[address] Erythrocyte distribution width (RBC) [Ratio] 19.7 % High 11.5-14.5 [facility] Comment on above: Performed By: #### H EMDF, BMP3M, LFT3, MG3 ####[address] Granulocytes/100 WBC (Bld) 62.6 % Normal 40.0-80.0 [facility] Comment on above: Performed By: #### H EMDF, BMP3M, LFT3, MG3 ####[address] Hematocrit (Bld) [Volume fraction] 34.4 % Low 35.0-47.0 [facility] Comment on above: Performed By: #### H EMDF, BMP3M, LFT3, MG3 ####[address] Hemoglobin (Bld) [Mass/Vol] 11.0 g/dL Low 11.7-16.0 [facility] Comment on above: Performed By: #### H EMDF, BMP3M, LFT3, MG3 ####[address] Lymphocytes (Bld) [#/Vol] 2.0 10*3/uL Normal 1.0-4.3 [facility] Comment on above: Performed By: #### H EMDF, BMP3M, LFT3, MG3 ####[address] Lymphocytes/100 WBC (Bld) 24.5 % Normal 20.0-40.0 [facility] Comment on above: Performed By: #### H EMDF, BMP3M, LFT3, MG3 ####[address] MCH (RBC) [Entitic mass] 24.2 pg Low 26.0-34.0 [facility] Comment on above: Performed By: #### H EMDF, BMP3M, LFT3, MG3 ####[address] MCHC 31.9 % Low 32.0-36.0 [facility] Comment on above: Performed By: #### H EMDF, BMP3M, LFT3, MG3 ####[address] MCV (RBC) [Entitic vol] 75.9 fL Low 79.0-98.0 [facility] Comment on above: Performed By: #### H EMDF, BMP3M, LFT3, MG3 ####[address] Monocytes (Bld) [#/Vol] 0.8 10*3/uL Normal 0.0-0.8 [facility] Comment on above: Performed By: #### H EMDF, BMP3M, LFT3, MG3 ####[address] Monocytes/100 WBC (Bld) 10.0 % Normal 2.0-10.0 [facility] Comment on above: Performed By: #### H EMDF, BMP3M, LFT3, MG3 ####[address] [place], [place] Platelet mean volume (Bld) [Entitic vol] 8.2 fL Normal 7.4-10.4 [facility] Comment on above: Performed By: #### H EMDF, BMP3M, LFT3, MG3 ####[address] [place], [place] Platelets (Bld) [#/Vol] 250 10*3/uL Normal 140-440 [facility] Comment on above: Performed By: #### H EMDF, BMP3M, LFT3, MG3 ####[address] [place], [place] RBC (Bld) [#/Vol] 4.53 10*6/uL Normal 3.80-5.20 [facility] Comment on above: Performed By: #### H EMDF, BMP3M, LFT3, MG3 ####[address] [place] WBC (Bld) [#/Vol] 8.2 10*3/uL Normal 3.6-10.7 [facility] Comment on above: Performed By: #### H EMDF, BMP3M, LFT3, MG3 ####[address] [place], [place] Hepatic Functionon 1 ALP [Catalytic activity/Vol] 48 U/L Normal 38-126 [facility] Comment on above: Performed By: #### H EMDF, BMP3M, LFT3, MG3 ####[address] [place], [place] ALT [Catalytic activity/Vol] 7 U/L Normal 0-34 [facility] Comment on above: Result Comment: The ALT test is performed by an updated assay method.Please note that the reference intervals have beenchanged and are now sex specific. Performed By: #### H EMDF, BMP3M, LFT3, MG3 ####[facility] [address] [place] [address] [place], [place] AST [Catalytic activity/Vol] 17 U/L Normal 15-46 [facility] Comment on above: Performed By: #### H EMDF, BMP3M, LFT3, MG3 ####[address] Bilirubin [Mass/Vol] 0.6 mg/dL Normal 0.2-1.3 [facility] Comment on above: Performed By: #### H EMDF, BMP3M, LFT3, MG3 ####[address] Bilirubin.indirect [Mass/Vol] 0.0 mg/dL Normal 0.0-0.3 [facility] Comment on above: Performed By: #### H EMDF, BMP3M, LFT3, MG3 ####[address] Protein [Mass/Vol] 6.9 g/dL Normal 6.3-8.2 [facility] Comment on above: Performed By: #### H EMDF, BMP3M, LFT3, MG3 ####[address] Albumin [Mass/Vol] 4.1 g/dL Normal 3.5-5.0 [facility] Comment on above: Performed By: #### H EMDF, BMP3M, LFT3, MG3 ####[address] Magnesiumon 07-25-2021 Magnesium [Mass/Vol] 2.0 mg/dL Normal 1.6-2.3 [facility] Comment on above: Performed By: #### H EMDF, BMP3M, LFT3, MG3 ####[address] Procalcitoninon 07-25-2021 Procalcitonin < 0.02 Normal 0.00-0.09 [facility] Comment on above: Performed By: #### M G3, LIPA4, HEMDF, LACTS, CMP3M, PCAL ####[facility] [facility] Add on test from HISon 07-24 Add on test from HIS Accepted Normal [facility] Comment on above: Result Comment: Spec imen available & acceptable for analysis. Performed By: #### A DDON ####[facility] [facility] [place] CR Chest Portableon 07-24-20 21 CR Chest Portable Normal [facility] CT Abdomen/Pelvis w/ Contras ton 07-24-2021 CT Abdomen/Pelvis w/ Contrast Normal [facility] Comp Panel with Mg Reflexon 07-24-2021 Calcium [Mass/Vol] 9.8 mg/dL Normal 8.4-10.4 [facility] Comment on above: Performed By: #### M G3, LIPA4, HEMDF, LACTS, CMP3M, PCAL ####[facility] [facility], [place] ALP [Catalytic activity/Vol] 63 U/L Normal 38-126 [facility] Comment on above: Performed By: #### M G3, LIPA4, HEMDF, LACTS, CMP3M, PCAL ####[facility] [place], [place] ALT [Catalytic activity/Vol] 9 U/L Normal 0-34 [facility] Comment on above: Result Comment: The ALT test is performed by an updated assay method.Please note that the reference intervals have beenchanged and are now sex specific. Performed By: #### M G3, LIPA4, HEMDF, LACTS, CMP3M, PCAL ####[facility] [id number] [facility], [place] Anion gap [Moles/Vol] 16 mmol/L High 3-13 [facility] Comment on above: Performed By: #### M G3, LIPA4, HEMDF, LACTS, CMP3M, PCAL ####[facility] [facility], [place] AST [Catalytic activity/Vol] 24 U/L Normal 15-46 [facility] Comment on above: Performed By: #### M G3, LIPA4, HEMDF, LACTS, CMP3M, PCAL ####[address] [place], [place] Bilirubin [Mass/Vol] 0.6 mg/dL Normal 0.2-1.3 [facility] Comment on above: Performed By: #### M G3, LIPA4, HEMDF, LACTS, CMP3M, PCAL ####[address] [place], [place] CO2 [Moles/Vol] 23 mmol/L Normal 22-30 [facility] Comment on above: Performed By: #### M G3, LIPA4, HEMDF, LACTS, CMP3M, PCAL ####[address] [place], [place] Creatinine [Mass/Vol] 0.60 mg/dL Normal 0.52-1.25 [facility] Comment on above: Performed By: #### M G3, LIPA4, HEMDF, LACTS, CMP3M, PCAL ####[address] [place], [place] eGFR OTHER > 90.0 Normal >60 [facility] Comment on above: Result Comment: KDIG O guidelines provide the following GFR categories:Stage GFR(ml/min/1.73 m2) TermsG1 >=90 Normal or highG2 60-89 Mildly decreased*G3a 45-59 Mildly to moderately [id number] 30-44 Moderately to severely decreasedG4 15-29 Severely decreasedG5 <15 Kidney failure*Relative to young adult level.In the absence of evidence of kidney damage, neither GFRcategory G1 nor G2 fulfill the criteria for CKD.The CKD-EPI equation is validated in individuals 18 yearsof age and older. Currently the best equation forestimating glomerular filtration rate (GFR) from serumcreatinine in children is the Bedside Boyer equation.It is less accurate in patients with extremes of musclemass, restriction of dietary protein, ingestion of creatine,extra-renal metabolism of creatinine, or treatment withmedications that affect renal tubular creatinine secretion. Performed By: #### M G3, LIPA4, HEMDF, LACTS, CMP3M, PCAL ####[place] [address] [place] [address] GFR/1.73 sq M.predicted among blacks MDRD (S/P/Bld) [Vol rate/Area] mL/min/{1.73_m2} Normal >60 [facility] Comment on above: Performed By: #### M G3, LIPA4, HEMDF, LACTS, CMP3M, PCAL ####[place] [facility] [address] Glucose [Mass/Vol] 87 mg/dL Normal 70-100 [facility] Comment on above: Performed By: #### M G3, LIPA4, HEMDF, LACTS, CMP3M, PCAL ####[place] [place] [address] Protein [Mass/Vol] 8.5 g/dL High 6.3-8.2 [facility] Comment on above: Performed By: #### M G3, LIPA4, HEMDF, LACTS, CMP3M, PCAL ####[place] [place] [address] Urea nitrogen [Mass/Vol] 10 mg/dL Normal 9-20 [facility] Comment on above: Performed By: #### M G3, LIPA4, HEMDF, LACTS, CMP3M, PCAL ####[address] [address] [place] [address] Potassium [Moles/Vol] 3.5 mmol/L Normal 3.5-5.1 [facility] Comment on above: Performed By: #### M G3, LIPA4, HEMDF, LACTS, CMP3M, PCAL ####[place] [facility] [place] [address] Albumin [Mass/Vol] 5.0 g/dL Normal 3.5-5.0 [facility] Comment on above: Performed By: #### M G3, LIPA4, HEMDF, LACTS, CMP3M, PCAL ####[place] [place] [address] Chloride [Moles/Vol] 96 mmol/L Low 98-107 [facility] Comment on above: Performed By: #### M G3, LIPA4, HEMDF, LACTS, CMP3M, PCAL ####[address] Sodium [Moles/Vol] 135 mmol/L Normal 135-145 [facility] Comment on above: Performed By: #### M G3, LIPA4, HEMDF, LACTS, CMP3M, PCAL ####[address] Complete Urinalysison 2020 Appearance (U) Turbid Abnormal Clear [facility] Comment on above: Result Comment: . Performed By: #### Nelson UA2, C/UR ####[address] Bacteria LM.HPF (Urine sed) [#/Area] Negative Normal Negative [facility] Comment on above: Result Comment: . Performed By: #### Nelson UA2, C/UR ####[facility] [address] Bilirubin,Urine Negative Normal Negative [facility] Comment on above: Result Comment: . Performed By: #### Nelson UA2, C/UR ####[facility] [address] Cast, Hyaline Negative Normal Negative [facility] Comment on above: Result Comment: . Performed By: #### C UA2, C/UR ####[facility] [address] Color (U) Yellow Normal Lt. Yellow [facility] Comment on above: Result Comment: . Performed By: #### C UA2, C/UR ####[facility] [address] Glucose Ql (U) Normal Normal Normal (<70) [facility] Comment on above: Result Comment: . Performed By: #### C UA2, C/UR ####[facility] [address] Ketone,Urine > 150 Abnormal Negative [facility] Comment on above: Result Comment: . Performed By: #### C UA2, C/UR ####[facility] [id number] [place], [place] Leukocytes,Urine 250 Nesha/uL Abnormal Negative [facility] Comment on above: Result Comment: . Performed By: #### C UA2, C/UR ####[facility] [id number] [place], [place] Mucous Threads Few Normal Negative [facility] Comment on above: Result Comment: . Performed By: #### C UA2, C/UR ####[facility] [id number] [place], [place] Nitrites,Urine Negative Normal Negative [facility] Comment on above: Result Comment: . Performed By: #### C UA2, C/UR ####[facility] [id number] [place], [place] Occult Blood,Urine > 1.0 Abnormal Negative [facility] Comment on above: Result Comment: . Performed By: #### C UA2, C/UR ####[facility] [employer] [place], [place] pH,Urine 6.0 Normal 5.0-8.0 [facility] Comment on above: Result Comment: . Performed By: #### C UA2, C/UR ####[facility] [id number] [place], [place] Protein (U) [Mass/Vol] 300 mg/dL Abnormal Negative [facility] Comment on above: Result Comment: . Performed By: #### C UA2, C/UR ####[facility] [id number] [place], [place] RBC LM.HPF (Urine sed) [#/Area] /[HPF] Abnormal 0-2 [facility] Comment on above: Result Comment: . Performed By: #### C UA2, C/UR ####[facility] [id number] [place], [place] Specific [place],Urine 1.018 Normal 1.005 - 1.030 [facility] Comment on above: Result Comment: . Performed By: #### C UA2, C/UR ####[facility] [place] [address] Squamous Epithelial 0 - 2 Normal 3-5 [facility] Comment on above: Result Comment: . Performed By: #### C UA2, C/UR ####[facility] [place], [place] Urobilinogen,Urine Normal Normal Normal (0-1) [facility] Comment on above: Result Comment: . Performed By: #### C UA2, C/UR ####[facility] [id number] [place], [place] WBC, Urine 51 - 100 Abnormal 0-5 [facility] Comment on above: Result Comment: . Performed By: #### C UA2, C/UR ####[address] ED Provider Noteon ED Provider Note Normal [facility] Hemogram w/ Autodiffon 07-24 Abs Baso Cnt 0.1 10*3/uL Normal 0.0-0.2 [facility] Comment on above: Performed By: #### M G3, LIPA4, HEMDF, LACTS, CMP3M, PCAL ####[address] [place], [place] Abs Neutrophile Cnt 7.7 10*3/uL High 1.8-7.0 [facility] Comment on above: Performed By: #### M G3, LIPA4, HEMDF, LACTS, CMP3M, PCAL ####[address] [place], [place] Basophils/100 WBC (Bld) 1.0 % Normal 0.0-2.0 [facility] Comment on above: Performed By: #### M G3, LIPA4, HEMDF, LACTS, CMP3M, PCAL ####[address] [place], [place] Eosinophils (Bld) [#/Vol] 0.1 10*3/uL Normal 0.0-0.5 [facility] Comment on above: Performed By: #### M G3, LIPA4, HEMDF, LACTS, CMP3M, PCAL ####[address] Eosinophils/100 WBC (Bld) 1.0 % Normal 1.0-6.0 [facility] Comment on above: Performed By: #### M G3, LIPA4, HEMDF, LACTS, CMP3M, PCAL ####[address] Erythrocyte distribution width (RBC) [Ratio] 20.1 % High 11.5-14.5 [facility] Comment on above: Performed By: #### M G3, LIPA4, HEMDF, LACTS, CMP3M, PCAL ####[address] Granulocytes/100 WBC (Bld) 76.2 % Normal 40.0-80.0 [facility] Comment on above: Performed By: #### M G3, LIPA4, HEMDF, LACTS, CMP3M, PCAL ####[address] Hematocrit (Bld) [Volume fraction] 39.6 % Normal 35.0-47.0 [facility] Comment on above: Performed By: #### M G3, LIPA4, HEMDF, LACTS, CMP3M, PCAL ####[address] [place], [place] Hemoglobin (Bld) [Mass/Vol] 12.6 g/dL Normal 11.7-16.0 [facility] Comment on above: Performed By: #### M G3, LIPA4, HEMDF, LACTS, CMP3M, PCAL ####[address] Lymphocytes (Bld) [#/Vol] 1.5 10*3/uL Normal 1.0-4.3 [facility] Comment on above: Performed By: #### M G3, LIPA4, HEMDF, LACTS, CMP3M, PCAL ####[address] [place], [place] Lymphocytes/100 WBC (Bld) 14.5 % Low 20.0-40.0 [facility] Comment on above: Performed By: #### M G3, LIPA4, HEMDF, LACTS, CMP3M, PCAL ####[address] [place], [place] MCH (RBC) [Entitic mass] 24.1 pg Low 26.0-34.0 [facility] Comment on above: Performed By: #### M G3, LIPA4, HEMDF, LACTS, CMP3M, PCAL ####[address] [place], [place] MCHC 31.8 % Low 32.0-36.0 [facility] Comment on above: Performed By: #### M G3, LIPA4, HEMDF, LACTS, CMP3M, PCAL ####[address] [place], [place] MCV (RBC) [Entitic vol] 75.7 fL Low 79.0-98.0 [facility] Comment on above: Performed By: #### M G3, LIPA4, HEMDF, LACTS, CMP3M, PCAL ####[address] [place], [place] Monocytes (Bld) [#/Vol] 0.7 10*3/uL Normal 0.0-0.8 [facility] Comment on above: Performed By: #### M G3, LIPA4, HEMDF, LACTS, CMP3M, PCAL ####[address] [place], [place] Monocytes/100 WBC (Bld) 7.3 % Normal 2.0-10.0 [facility] Comment on above: Performed By: #### M G3, LIPA4, HEMDF, LACTS, CMP3M, PCAL ####[address] [place], [place] Platelet mean volume (Bld) [Entitic vol] 8.0 fL Normal 7.4-10.4 [facility] Comment on above: Performed By: #### M G3, LIPA4, HEMDF, LACTS, CMP3M, PCAL ####[address] [place], [place] Platelets (Bld) [#/Vol] 313 10*3/uL Normal 140-440 [facility] Comment on above: Performed By: #### M G3, LIPA4, HEMDF, LACTS, CMP3M, PCAL ####[address] RBC (Bld) [#/Vol] 5.23 10*6/uL High 3.80-5.20 [facility] Comment on above: Performed By: #### M G3, LIPA4, HEMDF, LACTS, CMP3M, PCAL ####[address] WBC (Bld) [#/Vol] 10.1 10*3/uL Normal 3.6-10.7 [facility] Comment on above: Performed By: #### M G3, LIPA4, HEMDF, LACTS, CMP3M, PCAL ####[address] Lactic Acid, Sepsison 2020 Lactate [Moles/Vol] 0.6 mmol/L Low 0.7-2.0 [facility] Comment on above: Performed By: #### M G3, LIPA4, HEMDF, LACTS, CMP3M, PCAL ####[address] [place], [place] Lactate [Moles/Vol] 1.0 mmol/L Normal 0.7-2.0 [facility] Comment on above: Performed By: #### L ACTS ####[address] Lipaseon 07-24-2021 Lipase [Catalytic activity/Vol] 160 U/L Normal 23-300 [facility] Comment on above: Performed By: #### M G3, LIPA4, HEMDF, LACTS, CMP3M, PCAL ####[address] [place] [address] Magnesiumon 07-24-2021 Magnesium [Mass/Vol] 2.1 mg/dL Normal 1.6-2.3 [facility] Comment on above: Performed By: #### M G3, LIPA4, HEMDF, LACTS, CMP3M, PCAL ####[address] [place] [address] Procalcitoninon 07-24-2021 Interpretation See Below Normal [facility] Comment on above: Result Comment: PCT <0.50 = Low risk of severe sepsis and/or septic shock.PCT >2.00 = High risk of severe sepsis and/or septic shock. Performed By: #### M G3, LIPA4, HEMDF, LACTS, CMP3M, PCAL ####[address] Basic Metabolic Panelon 07-0 Anion gap [Moles/Vol] 9 mmol/L Normal 3-13 [facility] Comment on above: Performed By: #### P HOS3, MG3, BMP3 ####[address] Calcium [Mass/Vol] 9.4 mg/dL Normal 8.4-10.4 [facility] Comment on above: Performed By: #### P HOS3, MG3, BMP3 ####[address] [place], [place] CO2 [Moles/Vol] 28 mmol/L Normal 22-30 [facility] Comment on above: Performed By: #### P HOS3, MG3, BMP3 ####[address] [place], [place] Glucose [Mass/Vol] 66 mg/dL Low 70-100 [facility] Comment on above: Performed By: #### P HOS3, MG3, BMP3 ####[address] [place], [place] Urea nitrogen [Mass/Vol] 9 mg/dL Normal 7-20 [facility] Comment on above: Performed By: #### P HOS3, MG3, BMP3 ####[address] [place], [place] Creatinine [Mass/Vol] 0.67 mg/dL Normal 0.52-1.25 [facility] Comment on above: Performed By: #### P HOS3, MG3, BMP3 ####[address] [place], [place] eGFR OTHER > 90.0 Normal >60 [facility] Comment on above: Result Comment: KDIG O guidelines provide the following GFR categories:Stage GFR(ml/min/1.73 m2) TermsG1 >=90 Normal or highG2 60-89 Mildly decreased*G3a 45-59 Mildly to moderately [id number] 30-44 Moderately to severely decreasedG4 15-29 Severely decreasedG5 <15 Kidney failure*Relative to young adult level.In the absence of evidence of kidney damage, neither GFRcategory G1 nor G2 fulfill the criteria for CKD.The CKD-EPI equation is validated in individuals 18 yearsof age and older. Currently the best equation forestimating glomerular filtration rate (GFR) from serumcreatinine in children is the Bedside Boyer equation.It is less accurate in patients with extremes of musclemass, restriction of dietary protein, ingestion of creatine,extra-renal metabolism of creatinine, or treatment withmedications that affect renal tubular creatinine secretion. Performed By: #### P HOS3, MG3, BMP3 ####[address] [place], [place] GFR/1.73 sq M.predicted among blacks MDRD (S/P/Bld) [Vol rate/Area] mL/min/{1.73_m2} Normal >60 [facility] Comment on above: Performed By: #### P HOS3, MG3, BMP3 ####[address] [place], [place] Chloride [Moles/Vol] 102 mmol/L Normal 98-107 [facility] Comment on above: Performed By: #### P HOS3, MG3, BMP3 ####[address] [place] [address] Potassium [Moles/Vol] 4.4 mmol/L Normal 3.5-5.1 [facility] Comment on above: Performed By: #### P HOS3, MG3, BMP3 ####[facility] [id number] [place] [address] Sodium [Moles/Vol] 138 mmol/L Normal 135-145 [facility] Comment on above: Performed By: #### P HOS3, MG3, BMP3 ####[facility] [id number] [place] [address] Basic Metabolic PanelOrdered By: Hali Henry on 03-14-2021 Anion gap [Moles/Vol] 9 mmol/L 3 - 13 mmol/L [facility] Work Phone: [phone] Calcium [Mass/Vol] 9.4 mg/dL 8.4 - 10. 4 mg/dL [facility] Work Phone: [phone] Chloride [Moles/Vol] 102 mmol/L 98 - 10 7 mmol/L [facility] Work Phone: CO2 [Moles/Vol] 28 mmol/L 22 - 30 mmol/L [facility] Work Phone: Creatinine [Mass/Vol] 0.67 mg/dL 0.52 - 1.25 mg/dL [facility] Work Phone: EGFR IF NonAfrican [place] >90.0 >60 mL/min [facility] Work Phone: Comment on above: KDIGO guidelines pro vide the following GFR categories: Stage GFR(ml/min/1.73 m2) Terms G1 >=90 Normal or high G2 60-89 Mildly decreased* G3a 45-59 Mildly to moderately decreased G3b 30-44 Moderately to severely decreased G4 15-29 Severely decreased G5 <15 Kidney failure *Relative to young adult level. In the absence of evidence of kidney damage, neither GFR category G1 nor G2 fulfill the criteria for CKD. The CKD-EPI equation is validated in individuals 18 years of age and older. Currently the best equation for estimating glomerular filtration rate (GFR) from serum creatinine in children is the Bedside Boyer equation. It is less accurate in patients with extremes of muscle mass, restriction of dietary protein, ingestion of creatine, extra-renal metabolism of creatinine, or treatment with medications that affect renal tubular creatinine secretion. GFR/1.73 sq M.predicted among blacks MDRD (S/P/Bld) [Vol rate/Area] mL/min/{1.73_m2} >60 mL/min [facility] Work Phone: [phone] Glucose [Mass/Vol] 66 mg/dL Low 70 - 100 mg/dL [facility] Work Phone: [phone] Interpretation and review of laboratory results Abnormal [facility] Work Phone: [phone] Potassium [Moles/Vol] 4.4 mmol/L 3.5 - 5.1 mmol/L [facility] Work Phone: -[phone] Sodium [Moles/Vol] 138 mmol/L 135 - 145 mmol/L [facility] Work Phone: [phone] Urea nitrogen (BldV) [Mass/Vol] 9 mg/dL 7 - 20 mg/dL [facility] Work Phone: [phone] Magnesiumon 03-14-2021 Magnesium [Mass/Vol] 2.2 mg/dL Normal 1.6-2.3 [facility] Comment on above: Performed By: #### P HOS3, MG3, BMP3 ####[facility] [place] [place] [address] MagnesiumOrdered By: Ana Henry on 03-14-2021 Magnesium [Mass/Vol] 2.2 mg/dL 1.6 - 2 .3 mg/dL [facility] Work Phone: No Panel InformationOrdered By: Hali Henry on 03-14-2021 Test Performed by [facility], [address] [place] [address] [facility] Work Phone: [phone] [facility] Work Phone: [phone] Phosphoruson 03-14-2021 Phosphate [Mass/Vol] 4.0 mg/dL Normal 2.5-4.5 [facility] Comment on above: Performed By: #### P HOS3, MG3, BMP3 ####[facility] [address] [place] [address] PhosphorusOrdered By: Bhanu martins Henry on 03-14-2021 Phosphate [Mass/Vol] 4.0 mg/dL 2.5 - 4 .5 mg/dL [facility] Work Phone: [phone] CBC WITH AUTO DIFFERENTIALOr dered By: Go Main on 03-10-2021 Absolute Baso # 0.1 10*3/uL 0.0 - 0.2 10*3/uL [facility] Work Phone: [phone] Absolute Eos # 0.3 10*3/uL 0.0 - 0.5 10*3/uL [facility] Work Phone: [phone]() 222 Absolute Lymph # 1.5 10*3/uL 1.0 - 4.3 10*3/uL [facility] Work Phone: [phone]) 222 Absolute [place] # 0.6 10*3/uL 0.0 - 0.8 10*3/uL [facility] Work Phone: 1() 222 Absolute Neut # 2.7 10*3/uL 1.8 - 7.0 10*3/uL [facility] Work Phone: 1() 222 Basophils/100 WBC (Bld) 1.0 % 0.0 - 2.0 % [facility] Work Phone: [phone]) 222 Eosinophils/100 WBC (Bld) 6.0 % 1.0 - 6.0 % [facility] Work Phone: 1) 222 Granulocytes/100 WBC (Bld) 52.8 % 40.0 - 80.0 % [facility] Work Phone: [phone]) 222 Hematocrit (Bld) [Volume fraction] 28.9 % Low 35.0 - 47.0 % [facility] Work Phone: 1) 222 Hemoglobin.gastrointesti nal spec 1 Ql (Stl) 9.5 g/dL Low 11.7 - 16.0 g/dL [facility] Work Phone: [phone]) 222 Interpretation and review of laboratory results Abnormal [facility] Work Phone: [phone]) 222 Lymphocytes/100 WBC (Bld) 29.4 % 20.0 - 40.0 % [facility] Work Phone: [phone] MCH (RBC) [Entitic mass] 26.9 pg 26. 0 - 34.0 pg [facility] Work Phone: [phone] MCHC (RBC) [Mass/Vol] 32.7 % 32.0 - 36.0 % [facility] Work Phone: [phone] MCV (RBC) [Entitic vol] 82.0 fL 79.0 - 98.0 fL [facility] Work Phone: [phone] Monocytes/100 WBC (Bld) 10.8 % High 2.0 - 10.0 % [facility] Work Phone: [phone] Platelet distribution width (Bld) [Ratio] 15.8 % High 11.5 - 14.5 % [facility] Work Phone: [phone] Platelet mean volume (Bld) [Entitic vol] 8.1 fL 7.4 - 10.4 fL [facility] Work Phone: [phone]() 222 Platelets (Bld) [#/Vol] 176 10*3/uL 140 - 440 10*3/uL [facility] Work Phone: [phone] RBC (Bld) [#/Vol] 3.52 10*6/uL Low 3.80 - 5.20 10*6/uL [facility] Work Phone: [phone] WBC (Bld) [#/Vol] 5.2 10*3/uL 3.6 - 10.7 10*3/uL [facility] Work Phone: [phone] [facility] Work Phone: [phone] [facility] Work Phone: [phone] Calcium, IonizedOrdered By: Arlet Call on 03-10-2021 Ionized Ca 4.30 mg/dL 4.30 - 5.20 mg/dL [facility] Work Phone: [phone] pH (Bld) 7.37 [pH] [facility] Work Phone: [phone] [facility] Work Phone: [phone] [facility] Work Phone: [phone] Calcium,Ionizedon 03-10-2021 Ionized Ca,Measured 4.30 mg/dL Normal 4.30-5.20 [facility] Comment on above: Performed By: #### C MP3, ICA, HEMDF, MG3, PHOS3 ####[place] [address] [address] pH, Ionized Calcium 7.37 Normal 7.31-7.46 [facility] Comment on above: Performed By: #### C MP3, ICA, HEMDF, MG3, PHOS3 ####[place] [address] [place] [address] Comp Metabolic Panelon 03-10 ALP [Catalytic activity/Vol] 42 U/L Normal 38-126 [facility] Comment on above: Performed By: #### C MP3, ICA, HEMDF, MG3, PHOS3 ####[place] [address] [facility] [place] [address] ALT [Catalytic activity/Vol] 11 U/L Normal 0-34 [facility] Comment on above: Result Comment: The ALT test is performed by an updated assay method.Please note that the reference intervals have beenchanged and are now sex specific. Performed By: #### C MP3, ICA, HEMDF, MG3, PHOS3 ####[place] [address] [place] [address] Calcium [Mass/Vol] 8.5 mg/dL Normal 8.4-10.4 [facility] Comment on above: Performed By: #### C MP3, ICA, HEMDF, MG3, PHOS3 ####[place] [address] [facility] [place] [address] Glucose [Mass/Vol] 100 mg/dL Normal 70-100 [facility] Comment on above: Performed By: #### C MP3, ICA, HEMDF, MG3, PHOS3 ####[place] [address] [place] [address] Urea nitrogen [Mass/Vol] 15 mg/dL Normal 7-20 [facility] Comment on above: Performed By: #### C MP3, ICA, HEMDF, MG3, PHOS3 ####[place] [address] [place] [address] Anion gap [Moles/Vol] 8 mmol/L Normal 3-13 [facility] Comment on above: Performed By: #### C MP3, ICA, HEMDF, MG3, PHOS3 ####[facility] [place], [place] AST [Catalytic activity/Vol] 17 U/L Normal 15-46 [facility] Comment on above: Performed By: #### C MP3, ICA, HEMDF, MG3, PHOS3 ####[place] [address] [place], [place] Bilirubin [Mass/Vol] 0.3 mg/dL Normal 0.2-1.3 [facility] Comment on above: Performed By: #### C MP3, ICA, HEMDF, MG3, PHOS3 ####[place] [address] [place], [place] CO2 [Moles/Vol] 22 mmol/L Normal 22-30 [facility] Comment on above: Performed By: #### C MP3, ICA, HEMDF, MG3, PHOS3 ####[place] [address] [place] Creatinine [Mass/Vol] 0.43 mg/dL Low 0.52-1.25 [facility] Comment on above: Performed By: #### C MP3, ICA, HEMDF, MG3, PHOS3 ####[place] [address] [place], [place] eGFR OTHER > 90.0 Normal >60 [facility] Comment on above: Result Comment: KDIG O guidelines provide the following GFR categories:Stage GFR(ml/min/1.73 m2) TermsG1 >=90 Normal or highG2 60-89 Mildly decreased*G3a 45-59 Mildly to moderately [id number] 30-44 Moderately to severely decreasedG4 15-29 Severely decreasedG5 <15 Kidney failure*Relative to young adult level.In the absence of evidence of kidney damage, neither GFRcategory G1 nor G2 fulfill the criteria for CKD.The CKD-EPI equation is validated in individuals 18 yearsof age and older. Currently the best equation forestimating glomerular filtration rate (GFR) from serumcreatinine in children is the Bedside Boyer equation.It is less accurate in patients with extremes of musclemass, restriction of dietary protein, ingestion of creatine,extra-renal metabolism of creatinine, or treatment withmedications that affect renal tubular creatinine secretion. Performed By: #### C MP3, ICA, HEMDF, MG3, PHOS3 ####[place] [address] [place], [place] GFR/1.73 sq M.predicted among blacks MDRD (S/P/Bld) [Vol rate/Area] mL/min/{1.73_m2} Normal >60 [facility] Comment on above: Performed By: #### C MP3, ICA, HEMDF, MG3, PHOS3 ####[place] [address] [place], [place] Protein [Mass/Vol] 6.6 g/dL Normal 6.3-8.2 [facility] Comment on above: Performed By: #### C MP3, ICA, HEMDF, MG3, PHOS3 ####[place] [address] [place], [place] Chloride [Moles/Vol] 109 mmol/L High 98-107 [facility] Comment on above: Performed By: #### C MP3, ICA, HEMDF, MG3, PHOS3 ####[place] [address] [place], [place] Potassium [Moles/Vol] 3.8 mmol/L Normal 3.5-5.1 [facility] Comment on above: Performed By: #### C MP3, ICA, HEMDF, MG3, PHOS3 ####[place] [address] [place], [place] Sodium [Moles/Vol] 139 mmol/L Normal 135-145 [facility] Comment on above: Performed By: #### C MP3, ICA, HEMDF, MG3, PHOS3 ####[place] [address] [place], [place] Albumin [Mass/Vol] 3.5 g/dL Normal 3.5-5.0 [facility] Comment on above: Performed By: #### C MP3, ICA, HEMDF, MG3, PHOS3 ####[place] [address] [place] [address] Comprehensive Metabolic Pane lOrdered By: Hali Henry on 03-10-2021 Albumin [Mass/Vol] 3.5 g/dL 3.5 - 5.0 g/dL [facility] Work Phone: [phone] ALP (Bld) [Catalytic activity/Vol] 42 U/L 38 - 126 U/L [facility] Work Phone: [phone] ALT [Catalytic activity/Vol] 11 U/L 0 - 34 U/L [facility] Work Phone: [phone] Anion gap [Moles/Vol] 8 mmol/L 3 - 13 mmol/L [facility] Work Phone: [phone] AST [Catalytic activity/Vol] 17 U/L 15 - 46 U/L [facility] Work Phone: [phone] Bilirubin [Mass/Vol] 0.3 mg/dL 0.2 - 1 .3 mg/dL [facility] Work Phone: [phone] Calcium [Mass/Vol] 8.5 mg/dL 8.4 - 10. 4 mg/dL [facility] Work Phone: [phone] Chloride [Moles/Vol] 109 mmol/L High 98 - 10 7 mmol/L [facility] Work Phone: [phone] CO2 [Moles/Vol] 22 mmol/L 22 - 30 mmol/L [facility] Work Phone: [phone] Creatinine [Mass/Vol] 0.43 mg/dL Low 0.52 - 1.25 mg/dL [facility] Work Phone: [phone] EGFR IF NonAfrican Djiboutian >90.0 >60 mL/min [facility] Work Phone: [phone] Free PSA/Total PSA [Mass fraction] 6.6 g/dL 6.3 - 8.2 g/dL [facility] Work Phone: [phone] GFR/1.73 sq M.predicted among blacks MDRD (S/P/Bld) [Vol rate/Area] mL/min/{1.73_m2} >60 mL/min [facility] Work Phone: [phone] Glucose [Mass/Vol] 100 mg/dL 70 - 100 mg/dL [facility] Work Phone: [phone] Potassium [Moles/Vol] 3.8 mmol/L 3.5 - 5.1 mmol/L [facility] Work Phone: Sodium [Moles/Vol] 139 mmol/L 135 - 145 mmol/L [facility] Work Phone: Urea nitrogen (BldV) [Mass/Vol] 15 mg/dL 7 - 20 mg/dL [facility] Work Phone: Hemogram w/ Autodiffon 03-10 Abs Baso Cnt 0.1 10*3/uL Normal 0.0-0.2 [facility] Comment on above: Performed By: #### C MP3, ICA, HEMDF, MG3, PHOS3 ####[facility] [id number] [place] [address] Abs Neutrophile Cnt 2.7 10*3/uL Normal 1.8-7.0 [facility] Comment on above: Performed By: #### C MP3, ICA, HEMDF, MG3, PHOS3 ####[facility] [id number] [place] [address] Basophils/100 WBC (Bld) 1.0 % Normal 0.0-2.0 [facility] Comment on above: Performed By: #### C MP3, ICA, HEMDF, MG3, PHOS3 ####[facility] [id number] [place] [address] Eosinophils (Bld) [#/Vol] 0.3 10*3/uL Normal 0.0-0.5 [facility] Comment on above: Performed By: #### C MP3, ICA, HEMDF, MG3, PHOS3 ####[facility] [id number] [place] [address] Eosinophils/100 WBC (Bld) 6.0 % Normal 1.0-6.0 [facility] Comment on above: Performed By: #### C MP3, ICA, HEMDF, MG3, PHOS3 ####[facility] [id number] [place] [address] Erythrocyte distribution width (RBC) [Ratio] 15.8 % High 11.5-14.5 [facility] Comment on above: Performed By: #### C MP3, ICA, HEMDF, MG3, PHOS3 ####[place] [address] [place], [place] Granulocytes/100 WBC (Bld) 52.8 % Normal 40.0-80.0 [facility] Comment on above: Performed By: #### C MP3, ICA, HEMDF, MG3, PHOS3 ####[address] Hematocrit (Bld) [Volume fraction] 28.9 % Low 35.0-47.0 [facility] Comment on above: Performed By: #### C MP3, ICA, HEMDF, MG3, PHOS3 ####[place] [address] [place], [place] Hemoglobin (Bld) [Mass/Vol] 9.5 g/dL Low 11.7-16.0 [facility] Comment on above: Performed By: #### C MP3, ICA, HEMDF, MG3, PHOS3 ####[place] [address] [place], [place] Lymphocytes (Bld) [#/Vol] 1.5 10*3/uL Normal 1.0-4.3 [facility] Comment on above: Performed By: #### C MP3, ICA, HEMDF, MG3, PHOS3 ####[place] [address] [place], [place] Lymphocytes/100 WBC (Bld) 29.4 % Normal 20.0-40.0 [facility] Comment on above: Performed By: #### C MP3, ICA, HEMDF, MG3, PHOS3 ####[address] MCH (RBC) [Entitic mass] 26.9 pg Normal 26.0-34.0 [facility] Comment on above: Performed By: #### C MP3, ICA, HEMDF, MG3, PHOS3 ####[place] [address] [place], [place] MCHC 32.7 % Normal 32.0-36.0 [facility] Comment on above: Performed By: #### C MP3, ICA, HEMDF, MG3, PHOS3 ####[place] [address] [place], [place] MCV (RBC) [Entitic vol] 82.0 fL Normal 79.0-98.0 [facility] Comment on above: Performed By: #### C MP3, ICA, HEMDF, MG3, PHOS3 ####[place] [address] [place], [place] Monocytes (Bld) [#/Vol] 0.6 10*3/uL Normal 0.0-0.8 [facility] Comment on above: Performed By: #### C MP3, ICA, HEMDF, MG3, PHOS3 ####[place] [address] [place], [place] Monocytes/100 WBC (Bld) 10.8 % High 2.0-10.0 [facility] Comment on above: Performed By: #### C MP3, ICA, HEMDF, MG3, PHOS3 ####[place] [address] [place], [place] Platelet mean volume (Bld) [Entitic vol] 8.1 fL Normal 7.4-10.4 [facility] Comment on above: Performed By: #### C MP3, ICA, HEMDF, MG3, PHOS3 ####[place] [address] [place], [place] Platelets (Bld) [#/Vol] 176 10*3/uL Normal 140-440 [facility] Comment on above: Performed By: #### C MP3, ICA, HEMDF, MG3, PHOS3 ####[place] [address] [place], [place] RBC (Bld) [#/Vol] 3.52 10*6/uL Low 3.80-5.20 [facility] Comment on above: Performed By: #### C MP3, ICA, HEMDF, MG3, PHOS3 ####[address] [place] [address] WBC (Bld) [#/Vol] 5.2 10*3/uL Normal 3.6-10.7 [facility] Comment on above: Performed By: #### C MP3, ICA, HEMDF, MG3, PHOS3 ####[facility] [place] [address] Magnesiumon 03-10-2021 Magnesium [Mass/Vol] 2.1 mg/dL Normal 1.6-2.3 [facility] Comment on above: Performed By: #### C MP3, ICA, HEMDF, MG3, PHOS3 ####[place] [address] [place] [address] MagnesiumOrdered By: Arlet Call on 03-10-2021 Magnesium [Mass/Vol] 2.1 mg/dL 1.6 - 2 .3 mg/dL [facility] Work Phone: No Panel InformationOrdered By: Arlet Call on 03-10-2021 Interpretation and review of laboratory results Abnormal [facility] Work Phone: [facility] Work Phone: [facility] Work Phone: Phosphoruson 03-10-2021 Phosphate [Mass/Vol] 4.7 mg/dL High 2.5-4.5 [facility] Comment on above: Performed By: #### C MP3, ICA, HEMDF, MG3, PHOS3 ####[place] [address] [place] [address] PhosphorusOrdered By: Ava goldstein Call on 03-10-2021 Phosphate [Mass/Vol] 4.7 mg/dL High 2.5 - 4 .5 mg/dL [facility] Work Phone: CBC WITH AUTO DIFFERENTIALOr dered By: Go Main on 03-09-2021 Absolute Baso # 0.1 10*3/uL 0.0 - 0.2 10*3/uL [facility] Work Phone: Absolute Eos # 0.3 10*3/uL 0.0 - 0.5 10*3/uL [facility] Work Phone: [phone]() 222 Absolute Lymph # 1.7 10*3/uL 1.0 - 4.3 10*3/uL [facility] Work Phone: [phone]) 222 Absolute [place] # 0.8 10*3/uL 0.0 - 0.8 10*3/uL [facility] Work Phone: [phone] Absolute Neut # 4.7 10*3/uL 1.8 - 7.0 10*3/uL [facility] Work Phone: [phone]) 222 Basophils/100 WBC (Bld) 0.9 % 0.0 - 2.0 % [facility] Work Phone: 1() 222 Eosinophils/100 WBC (Bld) 4.3 % 1.0 - 6.0 % [facility] Work Phone: 1) 222 Granulocytes/100 WBC (Bld) 61.6 % 40.0 - 80.0 % [facility] Work Phone: 1) 222 Hematocrit (Bld) [Volume fraction] 31.4 % Low 35.0 - 47.0 % [facility] Work Phone: 1) 222 Hemoglobin.gastrointesti nal spec 1 Ql (Stl) 10.2 g/dL Low 11.7 - 16.0 g/dL [facility] Work Phone: [phone]) 222 Interpretation and review of laboratory results Abnormal [facility] Work Phone: 1) 222 Lymphocytes/100 WBC (Bld) 22.5 % 20.0 - 40.0 % [facility] Work Phone: 1) 222 MCH (RBC) [Entitic mass] 26.4 pg 26. 0 - 34.0 pg [facility] Work Phone: ) 222 MCHC (RBC) [Mass/Vol] 32.5 % 32.0 - 36.0 % [facility] Work Phone: [phone] MCV (RBC) [Entitic vol] 81.3 fL 79.0 - 98.0 fL [facility] Work Phone: 1) 222 Monocytes/100 WBC (Bld) 10.7 % High 2.0 - 10.0 % [facility] Work Phone: 1) 222 Platelet distribution width (Bld) [Ratio] 15.8 % High 11.5 - 14.5 % [facility] Work Phone: Platelet mean volume (Bld) [Entitic vol] 8.0 fL 7.4 - 10.4 fL [facility] Work Phone: [phone] Platelets (Bld) [#/Vol] 193 10*3/uL 140 - 440 10*3/uL [facility] Work Phone: [phone] RBC (Bld) [#/Vol] 3.87 10*6/uL 3.80 - 5.20 10*6/uL [facility] Work Phone: WBC (Bld) [#/Vol] 7.6 10*3/uL 3.6 - 10.7 10*3/uL [facility] Work Phone: [phone] [facility] Work Phone: [phone] [facility] Work Phone: [phone] Calcium, IonizedOrdered By: Arlet Call on 03-09-2021 Ionized Ca 4.40 mg/dL 4.30 - 5.20 mg/dL [facility] Work Phone: [phone] pH (Bld) 7.41 [pH] [facility] Work Phone: [phone] [facility] Work Phone: [phone] [facility] Work Phone: [phone] Calcium,Ionizedon 03-09-2021 Ionized Ca,Measured 4.40 mg/dL Normal 4.30-5.20 [facility] Comment on above: Performed By: #### H EMDF, MG3, PHOS3, ICA, CMP3 ####[facility] [place] [address] pH, Ionized Calcium 7.41 Normal 7.31-7.46 [facility] Comment on above: Performed By: #### H EMDF, MG3, PHOS3, ICA, CMP3 ####[facility] [place] [address] Comp Metabolic Panelon 03-09 ALP [Catalytic activity/Vol] 41 U/L Normal 38-126 [facility] Comment on above: Performed By: #### H EMDF, MG3, PHOS3, ICA, CMP3 ####[place] [address] [facility] [place] ALT [Catalytic activity/Vol] 11 U/L Normal 0-34 [facility] Comment on above: Result Comment: The ALT test is performed by an updated assay method.Please note that the reference intervals have beenchanged and are now sex specific. Performed By: #### H EMDF, MG3, PHOS3, ICA, CMP3 ####[place] [address] [facility] [place] AST [Catalytic activity/Vol] 20 U/L Normal 15-46 [facility] Comment on above: Performed By: #### H EMDF, MG3, PHOS3, ICA, CMP3 ####[place] [address] [facility] Calcium [Mass/Vol] 8.5 mg/dL Normal 8.4-10.4 [facility] Comment on above: Performed By: #### H EMDF, MG3, PHOS3, ICA, CMP3 ####[place] [address] [facility] [place] [place] Glucose [Mass/Vol] 110 mg/dL High 70-100 [facility] Comment on above: Performed By: #### H EMDF, MG3, PHOS3, ICA, CMP3 ####[place] [address] [place] Protein [Mass/Vol] 7.1 g/dL Normal 6.3-8.2 [facility] Comment on above: Performed By: #### H EMDF, MG3, PHOS3, ICA, CMP3 ####[place] [address] [facility] [place] [place] Urea nitrogen [Mass/Vol] 14 mg/dL Normal 7-20 [facility] Comment on above: Performed By: #### H EMDF, MG3, PHOS3, ICA, CMP3 ####[place] [address] [address] [facility] [place] Anion gap [Moles/Vol] 10 mmol/L Normal 3-13 [facility] Comment on above: Performed By: #### H EMDF, MG3, PHOS3, ICA, CMP3 ####[place] [address] [place], [place] Bilirubin [Mass/Vol] 0.3 mg/dL Normal 0.2-1.3 [facility] Comment on above: Performed By: #### H EMDF, MG3, PHOS3, ICA, CMP3 ####[place] [address] [place], [place] CO2 [Moles/Vol] 21 mmol/L Low 22-30 [facility] Comment on above: Performed By: #### H EMDF, MG3, PHOS3, ICA, CMP3 ####[place] [address] [place], [place] Creatinine [Mass/Vol] 0.49 mg/dL Low 0.52-1.25 [facility] Comment on above: Performed By: #### H EMDF, MG3, PHOS3, ICA, CMP3 ####[place] [address] [place], [place] eGFR OTHER > 90.0 Normal >60 [facility] Comment on above: Result Comment: KDIG O guidelines provide the following GFR categories:Stage GFR(ml/min/1.73 m2) TermsG1 >=90 Normal or highG2 60-89 Mildly decreased*G3a 45-59 Mildly to moderately [id number] 30-44 Moderately to severely decreasedG4 15-29 Severely decreasedG5 <15 Kidney failure*Relative to young adult level.In the absence of evidence of kidney damage, neither GFRcategory G1 nor G2 fulfill the criteria for CKD.The CKD-EPI equation is validated in individuals 18 yearsof age and older. Currently the best equation forestimating glomerular filtration rate (GFR) from serumcreatinine in children is the Bedside Boyer equation.It is less accurate in patients with extremes of musclemass, restriction of dietary protein, ingestion of creatine,extra-renal metabolism of creatinine, or treatment withmedications that affect renal tubular creatinine secretion. Performed By: #### H EMDF, MG3, PHOS3, ICA, CMP3 ####[place] [address] [place], [place] GFR/1.73 sq M.predicted among blacks MDRD (S/P/Bld) [Vol rate/Area] mL/min/{1.73_m2} Normal >60 [facility] Comment on above: Performed By: #### H EMDF, MG3, PHOS3, ICA, CMP3 ####[facility] [place], [place] Albumin [Mass/Vol] 3.9 g/dL Normal 3.5-5.0 [facility] Comment on above: Performed By: #### H EMDF, MG3, PHOS3, ICA, CMP3 ####[place] [address] [place], [place] Chloride [Moles/Vol] 107 mmol/L Normal 98-107 [facility] Comment on above: Performed By: #### H EMDF, MG3, PHOS3, ICA, CMP3 ####[place] [address] [place], [place] Potassium [Moles/Vol] 3.5 mmol/L Normal 3.5-5.1 [facility] Comment on above: Performed By: #### H EMDF, MG3, PHOS3, ICA, CMP3 ####[place] [address] [place], [place] Sodium [Moles/Vol] 137 mmol/L Normal 135-145 [facility] Comment on above: Performed By: #### H EMDF, MG3, PHOS3, ICA, CMP3 ####[place] [address] [place] [address] Comprehensive Metabolic Pane lOrdered By: Hali Henry on 03-09-2021 Albumin [Mass/Vol] 3.9 g/dL 3.5 - 5.0 g/dL [facility] Work Phone: ALP (Bld) [Catalytic activity/Vol] 41 U/L 38 - 126 U/L [facility] Work Phone: ALT [Catalytic activity/Vol] 11 U/L 0 - 34 U/L [facility] Work Phone: Anion gap [Moles/Vol] 10 mmol/L 3 - 13 mmol/L [facility] Work Phone: [phone] AST [Catalytic activity/Vol] 20 U/L 15 - 46 U/L [facility] Work Phone: [phone] Bilirubin [Mass/Vol] 0.3 mg/dL 0.2 - 1 .3 mg/dL [facility] Work Phone: [phone] Calcium [Mass/Vol] 8.5 mg/dL 8.4 - 10. 4 mg/dL [facility] Work Phone: [phone] Chloride [Moles/Vol] 107 mmol/L 98 - 10 7 mmol/L [facility] Work Phone: [phone] CO2 [Moles/Vol] 21 mmol/L Low 22 - 30 mmol/L [facility] Work Phone: [phone] Creatinine [Mass/Vol] 0.49 mg/dL Low 0.52 - 1.25 mg/dL [facility] Work Phone: [phone] EGFR IF NonAfrican [place] >90.0 >60 mL/min [facility] Work Phone: [phone] Free PSA/Total PSA [Mass fraction] 7.1 g/dL 6.3 - 8.2 g/dL [facility] Work Phone: [phone] GFR/1.73 sq M.predicted among blacks MDRD (S/P/Bld) [Vol rate/Area] mL/min/{1.73_m2} >60 mL/min [facility] Work Phone: [phone] Glucose [Mass/Vol] 110 mg/dL High 70 - 100 mg/dL [facility] Work Phone: [phone] Interpretation and review of laboratory results Abnormal [facility] Work Phone: [phone] Potassium [Moles/Vol] 3.5 mmol/L 3.5 - 5.1 mmol/L [facility] Work Phone: [phone] Sodium [Moles/Vol] 137 mmol/L 135 - 145 mmol/L [facility] Work Phone: [phone] Urea nitrogen (BldV) [Mass/Vol] 14 mg/dL 7 - 20 mg/dL [facility] Work Phone: [phone] Hemogram w/ [employer]odiffon 03-09 Abs Baso Cnt 0.1 10*3/uL Normal 0.0-0.2 [facility] Comment on above: Performed By: #### H EMDF, MG3, PHOS3, ICA, CMP3 ####[address] Abs Neutrophile Cnt 4.7 10*3/uL Normal 1.8-7.0 [facility] Comment on above: Performed By: #### H EMDF, MG3, PHOS3, ICA, CMP3 ####[address] Basophils/100 WBC (Bld) 0.9 % Normal 0.0-2.0 [facility] Comment on above: Performed By: #### H EMDF, MG3, PHOS3, ICA, CMP3 ####[address] Eosinophils (Bld) [#/Vol] 0.3 10*3/uL Normal 0.0-0.5 [facility] Comment on above: Performed By: #### H EMDF, MG3, PHOS3, ICA, CMP3 ####[address] Eosinophils/100 WBC (Bld) 4.3 % Normal 1.0-6.0 [facility] Comment on above: Performed By: #### H EMDF, MG3, PHOS3, ICA, CMP3 ####[address] Erythrocyte distribution width (RBC) [Ratio] 15.8 % High 11.5-14.5 [facility] Comment on above: Performed By: #### H EMDF, MG3, PHOS3, ICA, CMP3 ####[address] Granulocytes/100 WBC (Bld) 61.6 % Normal 40.0-80.0 [facility] Comment on above: Performed By: #### H EMDF, MG3, PHOS3, ICA, CMP3 ####[address] Hematocrit (Bld) [Volume fraction] 31.4 % Low 35.0-47.0 [facility] Comment on above: Performed By: #### H EMDF, MG3, PHOS3, ICA, CMP3 ####[address] Hemoglobin (Bld) [Mass/Vol] 10.2 g/dL Low 11.7-16.0 [facility] Comment on above: Performed By: #### H EMDF, MG3, PHOS3, ICA, CMP3 ####[address] Lymphocytes (Bld) [#/Vol] 1.7 10*3/uL Normal 1.0-4.3 [facility] Comment on above: Performed By: #### H EMDF, MG3, PHOS3, ICA, CMP3 ####[address] Lymphocytes/100 WBC (Bld) 22.5 % Normal 20.0-40.0 [facility] Comment on above: Performed By: #### H EMDF, MG3, PHOS3, ICA, CMP3 ####[address] MCH (RBC) [Entitic mass] 26.4 pg Normal 26.0-34.0 [facility] Comment on above: Performed By: #### H EMDF, MG3, PHOS3, ICA, CMP3 ####[address] MCHC 32.5 % Normal 32.0-36.0 [facility] Comment on above: Performed By: #### H EMDF, MG3, PHOS3, ICA, CMP3 ####[address] MCV (RBC) [Entitic vol] 81.3 fL Normal 79.0-98.0 [facility] Comment on above: Performed By: #### H EMDF, MG3, PHOS3, ICA, CMP3 ####[address] [place], [place] Monocytes (Bld) [#/Vol] 0.8 10*3/uL Normal 0.0-0.8 [facility] Comment on above: Performed By: #### H EMDF, MG3, PHOS3, ICA, CMP3 ####[address] [place], [place] Monocytes/100 WBC (Bld) 10.7 % High 2.0-10.0 [facility] Comment on above: Performed By: #### H EMDF, MG3, PHOS3, ICA, CMP3 ####[address] [place], [place] Platelet mean volume (Bld) [Entitic vol] 8.0 fL Normal 7.4-10.4 [facility] Comment on above: Performed By: #### H EMDF, MG3, PHOS3, ICA, CMP3 ####[address] [place], [place] Platelets (Bld) [#/Vol] 193 10*3/uL Normal 140-440 [facility] Comment on above: Performed By: #### H EMDF, MG3, PHOS3, ICA, CMP3 ####[address] [place] RBC (Bld) [#/Vol] 3.87 10*6/uL Normal 3.80-5.20 [facility] Comment on above: Performed By: #### H EMDF, MG3, PHOS3, ICA, CMP3 ####[address] [place] WBC (Bld) [#/Vol] 7.6 10*3/uL Normal 3.6-10.7 [facility] Comment on above: Performed By: #### H EMDF, MG3, PHOS3, ICA, CMP3 ####[address] Magnesiumon 03-09-2021 Magnesium [Mass/Vol] 2.1 mg/dL Normal 1.6-2.3 [facility] Comment on above: Performed By: #### H EMDF, MG3, PHOS3, ICA, CMP3 ####[facility] [address] [place] [address] MagnesiumOrdered By: Arlet Call on 03-09-2021 Magnesium [Mass/Vol] 2.1 mg/dL 1.6 - 2 .3 mg/dL [facility] Work Phone: No Panel InformationOrdered By: Ilyadinesh Call on 03-09-2021 [facility] Work Phone: [facility] Work Phone: Phosphoruson 03-09-2021 Phosphate [Mass/Vol] 4.3 mg/dL Normal 2.5-4.5 [facility] Comment on above: Performed By: #### H EMDF, MG3, PHOS3, ICA, CMP3 ####[facility] [address] [place] [address] PhosphorusOrdered By: Ava goldstein Call on 03-09-2021 Phosphate [Mass/Vol] 4.3 mg/dL 2.5 - 4 .5 mg/dL [facility] Work Phone: ZincOrdered By: Ilyadinesh Call on 03-09-2021 ZINC, SERUM 70.4 ug/dL 60.0 - 120.0 ug/dL [facility] Work Phone: [facility] Work Phone: Zinc, Serumon 03-09-2021 Zinc, Serum 70.4 ug/dL Normal 60.0-120.0 [facility] Comment on above: Result Comment: INTE RPRETIVE INFORMATION: Zinc, Serum or PlasmaElevated results may be due to skin or collection-relatedcontamination, including the use of a noncertified metal-freecollection/transport tube. If contamination concerns exist due toelevated levels of serum/plasma zinc, confirmation with a secondspecimen collected in a certified metal-free tube is recommended.Circulating zinc concentrations are dependent on albumin statusand are depressed with malnutrition. Zinc may also be loweredwith infection, inflammation, stress, oral contraceptives, andpregnancy. Zinc may be elevated with zinc supplementation orfasting. Elevated zinc concentrations may interfere with copperabsorption.This test was developed and its performance characteristicsdetermined by [email or web address]. It has not been cleared orapproved by the [place] Food and Drug Administration. This test wasperformed in a CLIA certified laboratory and is intended forclinical purposes.Performed By: [email or web address] [place] [id number] Director: Kareen Betancourt MD Performed By: #### I CA, PHOS3, TRIG3, LFT3, MG3, HEMDF, BMP3 ####[employer] [address] [address]#### ZINC2 ####The performing lab is in the report. CBC WITH AUTO DIFFERENTIALOr dered By: Go Main on 03-08-2021 Absolute Baso # 0.1 10*3/uL 0.0 - 0.2 10*3/uL [facility] Work Phone: ) [phone] Absolute Eos # 0.3 10*3/uL 0.0 - 0.5 10*3/uL [facility] Work Phone: [phone]) 222 Absolute Lymph # 1.8 10*3/uL 1.0 - 4.3 10*3/uL [facility] Work Phone: ) 222 Absolute [place] # 0.9 10*3/uL High 0.0 - 0.8 10*3/uL [facility] Work Phone: ) 222 Absolute Neut # 4.1 10*3/uL 1.8 - 7.0 10*3/uL [facility] Work Phone: [phone]) 222 Basophils/100 WBC (Bld) 0.9 % 0.0 - 2.0 % [facility] Work Phone: ) 222 Eosinophils/100 WBC (Bld) 4.4 % 1.0 - 6.0 % [facility] Work Phone: ) 222 Granulocytes/100 WBC (Bld) 57.3 % 40.0 - 80.0 % [facility] Work Phone: 222 Hematocrit (Bld) [Volume fraction] 30.0 % Low 35.0 - 47.0 % [facility] Work Phone: [phone]() 222 Hemoglobin.gastrointesti nal spec 1 Ql (Stl) 9.7 g/dL Low 11.7 - 16.0 g/dL [facility] Work Phone: [phone]) 222 Interpretation and review of laboratory results Abnormal [facility] Work Phone: 1) 222 Lymphocytes/100 WBC (Bld) 25.1 % 20.0 - 40.0 % [facility] Work Phone: 1) 222 MCH (RBC) [Entitic mass] 26.8 pg 26. 0 - 34.0 pg [facility] Work Phone: 1) 222 MCHC (RBC) [Mass/Vol] 32.5 % 32.0 - 36.0 % [facility] Work Phone: 1) 222 MCV (RBC) [Entitic vol] 82.4 fL 79.0 - 98.0 fL [facility] Work Phone: 1) 222 Monocytes/100 WBC (Bld) 12.3 % High 2.0 - 10.0 % [facility] Work Phone: 1) 222 Platelet distribution width (Bld) [Ratio] 15.9 % High 11.5 - 14.5 % [facility] Work Phone: 1) 222 Platelet mean volume (Bld) [Entitic vol] 8.4 fL 7.4 - 10.4 fL [facility] Work Phone: 1) 222 Platelets (Bld) [#/Vol] 171 10*3/uL 140 - 440 10*3/uL [facility] Work Phone: 1) 222 RBC (Bld) [#/Vol] 3.64 10*6/uL Low 3.80 - 5.20 10*6/uL [facility] Work Phone: [phone] WBC (Bld) [#/Vol] 7.2 10*3/uL 3.6 - 10.7 10*3/uL [facility] Work Phone: [phone] [facility] Work Phone: [phone] [facility] Work Phone: [phone]) 222 Calcium, IonizedOrdered By: Arlet Call on 03-08-2021 Ionized Ca 4.40 mg/dL 4.30 - 5.20 mg/dL [facility] Work Phone: pH (Bld) 7.34 [pH] [facility] Work Phone: [facility] Work Phone: [facility] Work Phone: Calcium,Ionizedon 03-08-2021 Ionized Ca,Measured 4.40 mg/dL Normal 4.30-5.20 [facility] Comment on above: Performed By: #### I CA, CMP3, MG3, HEMDF, PHOS3 ####[facility] [address] [place] [address] [address] [place], [place] pH, Ionized Calcium 7.34 Normal 7.31-7.46 [facility] Comment on above: Performed By: #### I CA, CMP3, MG3, HEMDF, PHOS3 ####[place] [address] [place] Comp Metabolic Panelon 03-08 ALT [Catalytic activity/Vol] 10 U/L Normal 0-34 [facility] Comment on above: Result Comment: The ALT test is performed by an updated assay method.Please note that the reference intervals have beenchanged and are now sex specific. Performed By: #### I CA, CMP3, MG3, HEMDF, PHOS3 ####[facility] [address] [place] Calcium [Mass/Vol] 8.3 mg/dL Low 8.4-10.4 [facility] Comment on above: Performed By: #### I CA, CMP3, MG3, HEMDF, PHOS3 ####[facility] [address] [place] [address] [address] [place] ALP [Catalytic activity/Vol] 38 U/L Normal 38-126 [facility] Comment on above: Performed By: #### I CA, CMP3, MG3, HEMDF, PHOS3 ####[address] [address] [place] Anion gap [Moles/Vol] 11 mmol/L Normal 3-13 [facility] Comment on above: Performed By: #### I CA, CMP3, MG3, HEMDF, PHOS3 ####[facility] [place], [place] AST [Catalytic activity/Vol] 19 U/L Normal 15-46 [facility] Comment on above: Performed By: #### I CA, CMP3, MG3, HEMDF, PHOS3 ####[facility] [place], [place] Bilirubin [Mass/Vol] 0.4 mg/dL Normal 0.2-1.3 [facility] Comment on above: Performed By: #### I CA, CMP3, MG3, HEMDF, PHOS3 ####[address] [place], [place] CO2 [Moles/Vol] 21 mmol/L Low 22-30 [facility] Comment on above: Performed By: #### I CA, CMP3, MG3, HEMDF, PHOS3 ####[address] [place] Creatinine [Mass/Vol] 0.43 mg/dL Low 0.52-1.25 [facility] Comment on above: Performed By: #### I CA, CMP3, MG3, HEMDF, PHOS3 ####[address] [place], [place] eGFR OTHER > 90.0 Normal >60 [facility] Comment on above: Result Comment: KDIG O guidelines provide the following GFR categories:Stage GFR(ml/min/1.73 m2) TermsG1 >=90 Normal or highG2 60-89 Mildly decreased*G3a 45-59 Mildly to moderately [id number] 30-44 Moderately to severely decreasedG4 15-29 Severely decreasedG5 <15 Kidney failure*Relative to young adult level.In the absence of evidence of kidney damage, neither GFRcategory G1 nor G2 fulfill the criteria for CKD.The CKD-EPI equation is validated in individuals 18 yearsof age and older. Currently the best equation forestimating glomerular filtration rate (GFR) from serumcreatinine in children is the Bedside Boyer equation.It is less accurate in patients with extremes of musclemass, restriction of dietary protein, ingestion of creatine,extra-renal metabolism of creatinine, or treatment withmedications that affect renal tubular creatinine secretion. Performed By: #### I CA, CMP3, MG3, HEMDF, PHOS3 ####[address] [place], [place] GFR/1.73 sq M.predicted among blacks MDRD (S/P/Bld) [Vol rate/Area] mL/min/{1.73_m2} Normal >60 [facility] Comment on above: Performed By: #### I CA, CMP3, MG3, HEMDF, PHOS3 ####[address] [place] Glucose [Mass/Vol] 92 mg/dL Normal 70-100 [facility] Comment on above: Performed By: #### I CA, CMP3, MG3, HEMDF, PHOS3 ####[address] [place] Protein [Mass/Vol] 6.7 g/dL Normal 6.3-8.2 [facility] Comment on above: Performed By: #### I CA, CMP3, MG3, HEMDF, PHOS3 ####[address] [place] Urea nitrogen [Mass/Vol] 17 mg/dL Normal 7-20 [facility] Comment on above: Performed By: #### I CA, CMP3, MG3, HEMDF, PHOS3 ####[address] [place] Albumin [Mass/Vol] 3.5 g/dL Normal 3.5-5.0 [facility] Comment on above: Performed By: #### I CA, CMP3, MG3, HEMDF, PHOS3 ####[address] [place] Chloride [Moles/Vol] 108 mmol/L High 98-107 [facility] Comment on above: Performed By: #### I CA, CMP3, MG3, HEMDF, PHOS3 ####[address] [place], [place] Comp Metabolic PanelOrdered By: Hali Henry on 03-08-2021 Potassium [Moles/Vol] 3.8 mmol/L Normal 3.5-5.1 [facility] Work Phone: [phone] Comment on above: Performed By: #### I CA, CMP3, MG3, HEMDF, PHOS3 ####[employer] [place] [address] Sodium [Moles/Vol] 140 mmol/L Normal 135-145 [facility] Work Phone: [phone] Comment on above: Performed By: #### I CA, CMP3, MG3, HEMDF, PHOS3 ####[employer] [place] [address] Comprehensive Metabolic Pane lOrdered By: Hali Henry on 03-08-2021 Albumin [Mass/Vol] 3.5 g/dL 3.5 - 5.0 g/dL [facility] Work Phone: [phone] ALP (Bld) [Catalytic activity/Vol] 38 U/L 38 - 126 U/L [facility] Work Phone: [phone] ALT [Catalytic activity/Vol] 10 U/L 0 - 34 U/L [facility] Work Phone: [phone] Anion gap [Moles/Vol] 11 mmol/L 3 - 13 mmol/L [facility] Work Phone: [phone] AST [Catalytic activity/Vol] 19 U/L 15 - 46 U/L [facility] Work Phone: [phone] Bilirubin [Mass/Vol] 0.4 mg/dL 0.2 - 1 .3 mg/dL [facility] Work Phone: [phone] Calcium [Mass/Vol] 8.3 mg/dL Low 8.4 - 10. 4 mg/dL [facility] Work Phone: [phone] Chloride [Moles/Vol] 108 mmol/L High 98 - 10 7 mmol/L [facility] Work Phone: 222 CO2 [Moles/Vol] 21 mmol/L Low 22 - 30 mmol/L [facility] Work Phone: [phone] Creatinine [Mass/Vol] 0.43 mg/dL Low 0.52 - 1.25 mg/dL [facility] Work Phone: EGFR IF NonAfrican Djiboutian >90.0 >60 mL/min [facility] Work Phone: Free PSA/Total PSA [Mass fraction] 6.7 g/dL 6.3 - 8.2 g/dL [facility] Work Phone: GFR/1.73 sq M.predicted among blacks MDRD (S/P/Bld) [Vol rate/Area] mL/min/{1.73_m2} >60 mL/min [facility] Work Phone: Glucose [Mass/Vol] 92 mg/dL 70 - 100 mg/dL [facility] Work Phone: Interpretation and review of laboratory results Abnormal [facility] Work Phone: Urea nitrogen (BldV) [Mass/Vol] 17 mg/dL 7 - 20 mg/dL [facility] Work Phone: Hemogram w/ Autodiffon 03-08 Abs Baso Cnt 0.1 10*3/uL Normal 0.0-0.2 [facility] Comment on above: Performed By: #### I CA, CMP3, MG3, HEMDF, PHOS3 ####[facility] [address] [place] [address] Abs Neutrophile Cnt 4.1 10*3/uL Normal 1.8-7.0 [facility] Comment on above: Performed By: #### I CA, CMP3, MG3, HEMDF, PHOS3 ####[facility] [address] [place] [address] Basophils/100 WBC (Bld) 0.9 % Normal 0.0-2.0 [facility] Comment on above: Performed By: #### I CA, CMP3, MG3, HEMDF, PHOS3 ####[address] [place] [address] Eosinophils (Bld) [#/Vol] 0.3 10*3/uL Normal 0.0-0.5 [facility] Comment on above: Performed By: #### I CA, CMP3, MG3, HEMDF, PHOS3 ####[address] [place] Eosinophils/100 WBC (Bld) 4.4 % Normal 1.0-6.0 [facility] Comment on above: Performed By: #### I CA, CMP3, MG3, HEMDF, PHOS3 ####[address] [place], [place] Erythrocyte distribution width (RBC) [Ratio] 15.9 % High 11.5-14.5 [facility] Comment on above: Performed By: #### I CA, CMP3, MG3, HEMDF, PHOS3 ####[address] Granulocytes/100 WBC (Bld) 57.3 % Normal 40.0-80.0 [facility] Comment on above: Performed By: #### I CA, CMP3, MG3, HEMDF, PHOS3 ####[address] Hematocrit (Bld) [Volume fraction] 30.0 % Low 35.0-47.0 [facility] Comment on above: Performed By: #### I CA, CMP3, MG3, HEMDF, PHOS3 ####[address] [place], [place] Hemoglobin (Bld) [Mass/Vol] 9.7 g/dL Low 11.7-16.0 [facility] Comment on above: Performed By: #### I CA, CMP3, MG3, HEMDF, PHOS3 ####[address] Lymphocytes (Bld) [#/Vol] 1.8 10*3/uL Normal 1.0-4.3 [facility] Comment on above: Performed By: #### I CA, CMP3, MG3, HEMDF, PHOS3 ####[address] Lymphocytes/100 WBC (Bld) 25.1 % Normal 20.0-40.0 [facility] Comment on above: Performed By: #### I CA, CMP3, MG3, HEMDF, PHOS3 ####[address] [place] MCH (RBC) [Entitic mass] 26.8 pg Normal 26.0-34.0 [facility] Comment on above: Performed By: #### I CA, CMP3, MG3, HEMDF, PHOS3 ####[address] [place] MCHC 32.5 % Normal 32.0-36.0 [facility] Comment on above: Performed By: #### I CA, CMP3, MG3, HEMDF, PHOS3 ####[address] [place] MCV (RBC) [Entitic vol] 82.4 fL Normal 79.0-98.0 [facility] Comment on above: Performed By: #### I CA, CMP3, MG3, HEMDF, PHOS3 ####[address] [place], [place] Monocytes (Bld) [#/Vol] 0.9 10*3/uL High 0.0-0.8 [facility] Comment on above: Performed By: #### I CA, CMP3, MG3, HEMDF, PHOS3 ####[address] [place] Monocytes/100 WBC (Bld) 12.3 % High 2.0-10.0 [facility] Comment on above: Performed By: #### I CA, CMP3, MG3, HEMDF, PHOS3 ####[address] [place] Platelet mean volume (Bld) [Entitic vol] 8.4 fL Normal 7.4-10.4 [facility] Comment on above: Performed By: #### I CA, CMP3, MG3, HEMDF, PHOS3 ####[address] [place] Platelets (Bld) [#/Vol] 171 10*3/uL Normal 140-440 [facility] Comment on above: Performed By: #### I CA, CMP3, MG3, HEMDF, PHOS3 ####[facility] [place] [address] RBC (Bld) [#/Vol] 3.64 10*6/uL Low 3.80-5.20 [facility] Comment on above: Performed By: #### I CA, CMP3, MG3, HEMDF, PHOS3 ####[address] [place] [address] WBC (Bld) [#/Vol] 7.2 10*3/uL Normal 3.6-10.7 [facility] Comment on above: Performed By: #### I CA, CMP3, MG3, HEMDF, PHOS3 ####[address] [place] [address] Magnesiumon 03-08-2021 Magnesium [Mass/Vol] 2.1 mg/dL Normal 1.6-2.3 [facility] Comment on above: Performed By: #### I CA, CMP3, MG3, HEMDF, PHOS3 ####[address] [place], [place] MagnesiumOrdered By: Arlet Call on 03-08-2021 Magnesium [Mass/Vol] 2.1 mg/dL 1.6 - 2 .3 mg/dL [facility] Work Phone: No Panel InformationOrdered By: Arlet Call on 03-08-2021 [facility] Work Phone: [facility] Work Phone: Op Noteon 03-08-2021 Op Note Normal [facility] Phosphoruson 03-08-2021 Phosphate [Mass/Vol] 4.1 mg/dL Normal 2.5-4.5 [facility] Comment on above: Performed By: #### I CA, CMP3, MG3, HEMDF, PHOS3 ####[address] [place] [address] PhosphorusOrdered By: Ava goldstein Call on 03-08-2021 Phosphate [Mass/Vol] 4.1 mg/dL 2.5 - 4 .5 mg/dL [facility] Work Phone: Special treatments and proce duresOrdered By: Daniel Henriquez on 03-08-2021 [facility] Work Phone: [facility] Work Phone: [facility] Work Phone: XA Special Angiography Proce dureon 03-08-2021 XA Special Angiography Procedure Normal [facility] Basic Metabolic Panelon - Calcium [Mass/Vol] 8.8 mg/dL Normal 8.4-10.4 [facility] Comment on above: Performed By: #### M G3, BMP3, ICA, PHOS3 ####[facility] [place], [place] Glucose [Mass/Vol] 115 mg/dL High 70-100 [facility] Comment on above: Performed By: #### M G3, BMP3, ICA, PHOS3 ####[facility] [id number] [place], [place] Anion gap [Moles/Vol] 11 mmol/L Normal 3-13 [facility] Comment on above: Performed By: #### M G3, BMP3, ICA, PHOS3 ####[facility] [place], [place] CO2 [Moles/Vol] 19 mmol/L Low 22-30 [facility] Comment on above: Performed By: #### M G3, BMP3, ICA, PHOS3 ####[facility] [place], [place] Creatinine [Mass/Vol] 0.43 mg/dL Low 0.52-1.25 [facility] Comment on above: Performed By: #### M G3, BMP3, ICA, PHOS3 ####[facility] [id number] [place], [place] eGFR OTHER > 90.0 Normal >60 [facility] Comment on above: Result Comment: KDIG O guidelines provide the following GFR categories:Stage GFR(ml/min/1.73 m2) TermsG1 >=90 Normal or highG2 60-89 Mildly decreased*G3a 45-59 Mildly to moderately otijmllecZ6l 30-44 Moderately to severely decreasedG4 15-29 Severely decreasedG5 <15 Kidney failure*Relative to young adult level.In the absence of evidence of kidney damage, neither GFRcategory G1 nor G2 fulfill the criteria for CKD.The CKD-EPI equation is validated in individuals 18 yearsof age and older. Currently the best equation forestimating glomerular filtration rate (GFR) from serumcreatinine in children is the Bedside Boyer equation.It is less accurate in patients with extremes of musclemass, restriction of dietary protein, ingestion of creatine,extra-renal metabolism of creatinine, or treatment withmedications that affect renal tubular creatinine secretion. Performed By: #### M G3, BMP3, ICA, PHOS3 ####[address] [place], [place] GFR/1.73 sq M.predicted among blacks MDRD (S/P/Bld) [Vol rate/Area] mL/min/{1.73_m2} Normal >60 [facility] Comment on above: Performed By: #### Peter G3, BMP3, ICA, PHOS3 ####[address] [place], [place] Urea nitrogen [Mass/Vol] 17 mg/dL Normal 7-20 [facility] Comment on above: Performed By: #### M G3, BMP3, ICA, PHOS3 ####[address] [place] [address] Chloride [Moles/Vol] 107 mmol/L Normal 98-107 [facility] Comment on above: Performed By: #### M G3, BMP3, ICA, PHOS3 ####[address] [place] [address] Potassium [Moles/Vol] 3.9 mmol/L Normal 3.5-5.1 [facility] Comment on above: Performed By: #### M G3, BMP3, ICA, PHOS3 ####[address] [place] [address] Sodium [Moles/Vol] 137 mmol/L Normal 135-145 [facility] Comment on above: Performed By: #### M G3, BMP3, ICA, PHOS3 ####[facility] [place] [address] Basic Metabolic PanelOrdered By: Hiral Kennedy on 03-07-2021 Anion gap [Moles/Vol] 11 mmol/L 3 - 13 mmol/L [facility] Work Phone: [phone] Calcium [Mass/Vol] 8.8 mg/dL 8.4 - 10. 4 mg/dL [facility] Work Phone: [phone] Chloride [Moles/Vol] 107 mmol/L 98 - 10 7 mmol/L [facility] Work Phone: [phone] CO2 [Moles/Vol] 19 mmol/L Low 22 - 30 mmol/L [facility] Work Phone: [phone] Creatinine [Mass/Vol] 0.43 mg/dL Low 0.52 - 1.25 mg/dL [facility] Work Phone: [phone] EGFR IF NonAfrican Djiboutian >90.0 >60 mL/min [facility] Work Phone: [phone] GFR/1.73 sq M.predicted among blacks MDRD (S/P/Bld) [Vol rate/Area] mL/min/{1.73_m2} >60 mL/min [facility] Work Phone: [phone] Glucose [Mass/Vol] 115 mg/dL High 70 - 100 mg/dL [facility] Work Phone: [phone] Interpretation and review of laboratory results Abnormal [facility] Work Phone: [phone] Potassium [Moles/Vol] 3.9 mmol/L 3.5 - 5.1 mmol/L [facility] Work Phone: [phone] Sodium [Moles/Vol] 137 mmol/L 135 - 145 mmol/L [facility] Work Phone: [phone] Urea nitrogen (BldV) [Mass/Vol] 17 mg/dL 7 - 20 mg/dL [facility] Work Phone: [phone] CBC WITH AUTO DIFFERENTIALOr dered By: Go Main on 03-07-2021 Absolute Baso # 0.1 10*3/uL 0.0 - 0.2 10*3/uL [facility] Work Phone: [phone] Absolute Eos # 0.3 10*3/uL 0.0 - 0.5 10*3/uL [facility] Work Phone: [phone] Absolute Lymph # 1.0 10*3/uL 1.0 - 4.3 10*3/uL [facility] Work Phone: [phone] Absolute [place] # 0.6 10*3/uL 0.0 - 0.8 10*3/uL [facility] Work Phone: [phone] Absolute Neut # 5.6 10*3/uL 1.8 - 7.0 10*3/uL [facility] Work Phone: [phone] Basophils/100 WBC (Bld) 0.8 % 0.0 - 2.0 % [facility] Work Phone: [phone] Eosinophils/100 WBC (Bld) 3.4 % 1.0 - 6.0 % [facility] Work Phone: [phone] Granulocytes/100 WBC (Bld) 74.6 % 40.0 - 80.0 % [facility] Work Phone: [phone] Hematocrit (Bld) [Volume fraction] 33.3 % Low 35.0 - 47.0 % [facility] Work Phone: [phone] Hemoglobin.gastrointesti nal spec 1 Ql (Stl) 10.8 g/dL Low 11.7 - 16.0 g/dL [facility] Work Phone: [phone] Interpretation and review of laboratory results Abnormal [facility] Work Phone: [phone] Lymphocytes/100 WBC (Bld) 13.0 % Low 20.0 - 40.0 % [facility] Work Phone: [phone] MCH (RBC) [Entitic mass] 26.5 pg 26. 0 - 34.0 pg [facility] Work Phone: [phone] MCHC (RBC) [Mass/Vol] 32.6 % 32.0 - 36.0 % [facility] Work Phone: [phone] MCV (RBC) [Entitic vol] 81.3 fL 79.0 - 98.0 fL [facility] Work Phone: [phone] Monocytes/100 WBC (Bld) 8.2 % 2.0 - 10.0 % [facility] Work Phone: Platelet distribution width (Bld) [Ratio] 15.7 % High 11.5 - 14.5 % [facility] Work Phone: Platelet mean volume (Bld) [Entitic vol] 7.8 fL 7.4 - 10.4 fL [facility] Work Phone: [phone] Platelets (Bld) [#/Vol] 184 10*3/uL 140 - 440 10*3/uL [facility] Work Phone: RBC (Bld) [#/Vol] 4.10 10*6/uL 3.80 - 5.20 10*6/uL [facility] Work Phone: WBC (Bld) [#/Vol] 7.5 10*3/uL 3.6 - 10.7 10*3/uL [facility] Work Phone: Calcium, IonizedOrdered By: Hiral Kennedy on 03-07-2021 Ionized Ca 4.50 mg/dL 4.30 - 5.20 mg/dL [employer] Phone: pH (Bld) 7.38 [pH] [facility] Work Phone: Calcium,Ionizedon 03-07-2021 Ionized Ca,Measured 4.50 mg/dL Normal 4.30-5.20 [facility] [employer] Comment on above: Performed By: #### M G3, BMP3, ICA, PHOS3 ####[facility] [place] [id number] pH, Ionized Calcium 7.38 Normal 7.31-7.46 [facility] Comment on above: Performed By: #### M G3, BMP3, ICA, PHOS3 ####[facility] [address] [place] [address] Glucose,Bedsideon 03-07-2021 Glucose [Mass/Vol] 98 mg/dL Normal 70-100 [facility] Comment on above: Result Comment: Test performed by glucose meter. Results may be 10%-15% lowerthan serum/plasma values. (CLIA ID [id number]) Performed By: #### B GLU ####[address] [place], [place] Glucose [Mass/Vol] 166 mg/dL High 70-100 [facility] Comment on above: Result Comment: Test performed by glucose meter. Results may be 10%-15% lowerthan serum/plasma values. (CLIA ID [id number]) Performed By: #### B GLU ####[address] Hemogram w/ Autodiffon 03-07 Abs Baso Cnt 0.1 10*3/uL Normal 0.0-0.2 [facility] Comment on above: Performed By: #### L FT3, HEMDF ####[address] [place], [place] Abs Neutrophile Cnt 5.6 10*3/uL Normal 1.8-7.0 [facility] Comment on above: Performed By: #### L FT3, HEMDF ####[address] Basophils/100 WBC (Bld) 0.8 % Normal 0.0-2.0 [facility] Comment on above: Performed By: #### L FT3, HEMDF ####[address] Eosinophils (Bld) [#/Vol] 0.3 10*3/uL Normal 0.0-0.5 [facility] Comment on above: Performed By: #### L FT3, HEMDF ####[address] Eosinophils/100 WBC (Bld) 3.4 % Normal 1.0-6.0 [facility] Comment on above: Performed By: #### L FT3, HEMDF ####[facility] [address] Erythrocyte distribution width (RBC) [Ratio] 15.7 % High 11.5-14.5 [facility] Comment on above: Performed By: #### L FT3, HEMDF ####[address] [place], [place] Granulocytes/100 WBC (Bld) 74.6 % Normal 40.0-80.0 [facility] Comment on above: Performed By: #### L FT3, HEMDF ####[address] Hematocrit (Bld) [Volume fraction] 33.3 % Low 35.0-47.0 [facility] Comment on above: Performed By: #### L FT3, HEMDF ####[address] Hemoglobin (Bld) [Mass/Vol] 10.8 g/dL Low 11.7-16.0 [facility] Comment on above: Performed By: #### L FT3, HEMDF ####[address] Lymphocytes (Bld) [#/Vol] 1.0 10*3/uL Normal 1.0-4.3 [facility] Comment on above: Performed By: #### L FT3, HEMDF ####[address] Lymphocytes/100 WBC (Bld) 13.0 % Low 20.0-40.0 [facility] Comment on above: Performed By: #### L FT3, HEMDF ####[address] MCH (RBC) [Entitic mass] 26.5 pg Normal 26.0-34.0 [facility] Comment on above: Performed By: #### L FT3, HEMDF ####[address] MCHC 32.6 % Normal 32.0-36.0 [facility] Comment on above: Performed By: #### L FT3, HEMDF ####[address] MCV (RBC) [Entitic vol] 81.3 fL Normal 79.0-98.0 [facility] Comment on above: Performed By: #### L FT3, HEMDF ####[address] [place], [place] Monocytes (Bld) [#/Vol] 0.6 10*3/uL Normal 0.0-0.8 [facility] Comment on above: Performed By: #### L FT3, HEMDF ####[facility] [address] [place], [place] Monocytes/100 WBC (Bld) 8.2 % Normal 2.0-10.0 [facility] Comment on above: Performed By: #### L FT3, HEMDF ####[facility] [address] [place], [place] Platelet mean volume (Bld) [Entitic vol] 7.8 fL Normal 7.4-10.4 [facility] Comment on above: Performed By: #### L FT3, HEMDF ####[facility] [address] Platelets (Bld) [#/Vol] 184 10*3/uL Normal 140-440 [facility] Comment on above: Performed By: #### L FT3, HEMDF ####[facility] [address] RBC (Bld) [#/Vol] 4.10 10*6/uL Normal 3.80-5.20 [facility] Comment on above: Performed By: #### L FT3, HEMDF ####[facility] [address] WBC (Bld) [#/Vol] 7.5 10*3/uL Normal 3.6-10.7 [facility] Comment on above: Performed By: #### L FT3, HEMDF ####[facility] [address] [place], [place] Hepatic Functionon 1 ALP [Catalytic activity/Vol] 47 U/L Normal 38-126 [facility] Comment on above: Performed By: #### L FT3, HEMDF ####[facility] [id number] [place], [place] ALT [Catalytic activity/Vol] 12 U/L Normal 0-34 [facility] Comment on above: Result Comment: The ALT test is performed by an updated assay method.Please note that the reference intervals have beenchanged and are now sex specific. Performed By: #### L FT3, HEMDF ####[facility] [id number] [place], [place] AST [Catalytic activity/Vol] 20 U/L Normal 15-46 [facility] Comment on above: Performed By: #### L FT3, HEMDF ####[facility] [address] [place], [place] Bilirubin [Mass/Vol] 0.3 mg/dL Normal 0.2-1.3 [facility] Comment on above: Performed By: #### L FT3, HEMDF ####[facility] [address] [place], [place] Bilirubin.indirect [Mass/Vol] 0.0 mg/dL Normal 0.0-0.3 [facility] Comment on above: Performed By: #### L FT3, HEMDF ####[facility] [address] [place], [place] Protein [Mass/Vol] 7.4 g/dL Normal 6.3-8.2 [facility] Comment on above: Performed By: #### L FT3, HEMDF ####[facility] [address] [place], [place] Albumin [Mass/Vol] 4.0 g/dL Normal 3.5-5.0 [facility] Comment on above: Performed By: #### L FT3, HEMDF ####[facility] [address] [place], [place] Hepatic Function PanelOrdere d By: Go Main on 03-07-2021 Albumin [Mass/Vol] 4.0 g/dL 3.5 - 5.0 g/dL [email or web address] Work Phone: ALP (Bld) [Catalytic activity/Vol] 47 U/L 38 - 126 U/L [email or web address] Work Phone: [phone] ALT [Catalytic activity/Vol] 12 U/L 0 - 34 U/L [facility] Work Phone: [phone] AST [Catalytic activity/Vol] 20 U/L 15 - 46 U/L [facility] Work Phone: [phone] Bilirubin [Mass/Vol] 0.3 mg/dL 0.2 - 1 .3 mg/dL [facility] Work Phone: [phone] Bilirubin.indirect [Mass/Vol] 0.0 mg/dL 0.0 - 0.3 mg/dL [facility] Work Phone: [phone] Free PSA/Total PSA [Mass fraction] 7.4 g/dL 6.3 - 8.2 g/dL [facility] Work Phone: [phone] [facility] Work Phone: [phone] [facility] Work Phone: [phone] Magnesiumon 03-07-2021 Magnesium [Mass/Vol] 2.0 mg/dL Normal 1.6-2.3 [facility] Comment on above: Performed By: #### M G3, BMP3, ICA, PHOS3 ####[facility] [address] [place] [address] MagnesiumOrdered By: Hiral frank on 03-07-2021 Magnesium [Mass/Vol] 2.0 mg/dL 1.6 - 2 .3 mg/dL [facility] Work Phone: [phone] Panel InformationOrdered By: Hiral Kennedy on 03-07-2021 [facility] Work Phone: [phone] [facility] Work Phone: [phone] Panel InformationOrdered By: Go Main on 03-07-2021 [facility] Work Phone: [phone] [facility] Work Phone: [phone] POCT GlucoseOrdered By: Ben Butler on 03-07-2021 Glucose [Mass/Vol] 98 mg/dL 70 - 100 mg/dL [facility] Work Phone: [phone] [facility] Work Phone: [phone] [facility] Work Phone: [phone] Glucose [Mass/Vol] 166 mg/dL High 70 - 100 mg/dL [facility] Work Phone: [phone] Interpretation and review of laboratory results Abnormal [facility] Work Phone: [phone] [facility] Work Phone: [phone] [facility] Work Phone: [phone] Phosphoruson 03-07-2021 Phosphate [Mass/Vol] 3.1 mg/dL Normal 2.5-4.5 [facility] Comment on above: Performed By: #### M G3, BMP3, ICA, PHOS3 ####[facility] [id number] [place] [address] PhosphorusOrdered By: Hiral navarro on 03-07-2021 Phosphate [Mass/Vol] 3.1 mg/dL 2.5 - 4 .5 mg/dL [facility] Work Phone: [phone] BASIC METABOLIC PANELOrdered By: Rachael Butler on 03-06-2021 Anion gap [Moles/Vol] 8 mmol/L 3 - 13 mmol/L [facility] Work Phone: [phone] Calcium [Mass/Vol] 8.7 mg/dL 8.4 - 10. 4 mg/dL [facility] Work Phone: [phone] Chloride [Moles/Vol] 106 mmol/L 98 - 10 7 mmol/L [facility] Work Phone: [phone] CO2 [Moles/Vol] 22 mmol/L 22 - 30 mmol/L [facility] Work Phone: [phone] Creatinine [Mass/Vol] 0.5 mg/dL Low 0.52 - 1.25 mg/dL [facility] Work Phone: [phone] EGFR IF NonAfrican Djiboutian >90.0 >60 mL/min [facility] Work Phone: [phone] GFR/1.73 sq M.predicted among blacks MDRD (S/P/Bld) [Vol rate/Area] mL/min/{1.73_m2} >60 mL/min [facility] Work Phone: [phone] Glucose [Mass/Vol] 98 mg/dL 70 - 100 mg/dL [facility] Work Phone: Interpretation and review of laboratory results Abnormal [facility] Work Phone: Potassium [Moles/Vol] 4.0 mmol/L 3.5 - 5.1 mmol/L [facility] Work Phone: Sodium [Moles/Vol] 136 mmol/L 135 - 145 mmol/L [facility] Work Phone: Urea nitrogen (BldV) [Mass/Vol] 14 mg/dL 7 - 20 mg/dL [facility] Work Phone: Basic Metabolic Panelon 06-3 0-2020 Anion gap [Moles/Vol] 8 mmol/L Normal 3-13 [facility] Comment on above: Performed By: #### B MP3, MG3, PHOS3 ####[facility] [address] [place] [address] Calcium [Mass/Vol] 8.7 mg/dL Normal 8.4-10.4 [facility] Comment on above: Performed By: #### Rubén MP3, MG3, PHOS3 ####[facility] [employer] [place] [address] CO2 [Moles/Vol] 22 mmol/L Normal 22-30 [facility] Comment on above: Performed By: #### Rubén MP3, MG3, PHOS3 ####[employer] [address] [place] [address] Glucose [Mass/Vol] 98 mg/dL Normal 70-100 [facility] Comment on above: Performed By: #### Rubén MP3, MG3, PHOS3 ####[facility] [address] [place] [address] Urea nitrogen [Mass/Vol] 14 mg/dL Normal 7-20 [facility] Comment on above: Performed By: #### Rubén MP3, MG3, PHOS3 ####[facility] [address] [place] [address] Creatinine [Mass/Vol] 0.50 mg/dL Low 0.52-1.25 [facility] Comment on above: Performed By: #### Rubén MP3, MG3, PHOS3 ####[address] [place], [place] eGFR OTHER > 90.0 Normal >60 [facility] Comment on above: Result Comment: KDIG O guidelines provide the following GFR categories:Stage GFR(ml/min/1.73 m2) TermsG1 >=90 Normal or highG2 60-89 Mildly decreased*G3a 45-59 Mildly to moderately ajgfngcydN4b 30-44 Moderately to severely decreasedG4 15-29 Severely decreasedG5 <15 Kidney failure*Relative to young adult level.In the absence of evidence of kidney damage, neither GFRcategory G1 nor G2 fulfill the criteria for CKD.The CKD-EPI equation is validated in individuals 18 yearsof age and older. Currently the best equation forestimating glomerular filtration rate (GFR) from serumcreatinine in children is the Bedside Boyer equation.It is less accurate in patients with extremes of musclemass, restriction of dietary protein, ingestion of creatine,extra-renal metabolism of creatinine, or treatment withmedications that affect renal tubular creatinine secretion. Performed By: #### B MP3, MG3, PHOS3 ####[address] [place], [place] GFR/1.73 sq M.predicted among blacks MDRD (S/P/Bld) [Vol rate/Area] mL/min/{1.73_m2} Normal >60 [facility] Comment on above: Performed By: #### B MP3, MG3, PHOS3 ####[address] [place], [place] Potassium [Moles/Vol] 4.0 mmol/L Normal 3.5-5.1 [facility] Comment on above: Performed By: #### B MP3, MG3, PHOS3 ####[address] [place], [place] Sodium [Moles/Vol] 136 mmol/L Normal 135-145 [facility] Comment on above: Performed By: #### B MP3, MG3, PHOS3 ####[address] [place], [place] Chloride [Moles/Vol] 106 mmol/L Normal 98-107 [facility] Comment on above: Performed By: #### B MP3, MG3, PHOS3 ####[facility] [address] [place], [place] Calcium [Mass/Vol] 9.0 mg/dL Normal 8.4-10.4 [facility] Comment on above: Performed By: #### B MP3, MG3, PHOS3, ICA ####[facility] [address] [place], [place] Glucose [Mass/Vol] 108 mg/dL High 70-100 [facility] Comment on above: Performed By: #### B MP3, MG3, PHOS3, ICA ####[facility] [address] [place], [place] Anion gap [Moles/Vol] 10 mmol/L Normal 3-13 [facility] Comment on above: Performed By: #### B MP3, MG3, PHOS3, ICA ####[facility] [address] [place], [place] CO2 [Moles/Vol] 20 mmol/L Low 22-30 [facility] Comment on above: Performed By: #### B MP3, MG3, PHOS3, ICA ####[facility] [address] [place], [place] Creatinine [Mass/Vol] 0.44 mg/dL Low 0.52-1.25 [facility] Comment on above: Performed By: #### B MP3, MG3, PHOS3, ICA ####[facility] [address] [place], [place] eGFR OTHER > 90.0 Normal >60 [facility] Comment on above: Result Comment: KDIG O guidelines provide the following GFR categories:Stage GFR(ml/min/1.73 m2) TermsG1 >=90 Normal or highG2 60-89 Mildly decreased*G3a 45-59 Mildly to moderately eybatkadxF8l 30-44 Moderately to severely decreasedG4 15-29 Severely decreasedG5 <15 Kidney failure*Relative to young adult level.In the absence of evidence of kidney damage, neither GFRcategory G1 nor G2 fulfill the criteria for CKD.The CKD-EPI equation is validated in individuals 18 yearsof age and older. Currently the best equation forestimating glomerular filtration rate (GFR) from serumcreatinine in children is the Bedside Boyer equation.It is less accurate in patients with extremes of musclemass, restriction of dietary protein, ingestion of creatine,extra-renal metabolism of creatinine, or treatment withmedications that affect renal tubular creatinine secretion. Performed By: #### B MP3, MG3, PHOS3, ICA ####[address] [place], [place] GFR/1.73 sq M.predicted among blacks MDRD (S/P/Bld) [Vol rate/Area] mL/min/{1.73_m2} Normal >60 [facility] Comment on above: Performed By: #### B MP3, MG3, PHOS3, ICA ####[address] [place], [place] Urea nitrogen [Mass/Vol] 15 mg/dL Normal 7-20 [facility] Comment on above: Performed By: #### Rubén MP3, MG3, PHOS3, ICA ####[address] [place], [place] Chloride [Moles/Vol] 104 mmol/L Normal 98-107 [facility] Comment on above: Performed By: #### Rubén MP3, MG3, PHOS3, ICA ####[address] [place], [place] Potassium [Moles/Vol] 3.9 mmol/L Normal 3.5-5.1 [facility] Comment on above: Performed By: #### B MP3, MG3, PHOS3, ICA ####[address] [place], [place] Sodium [Moles/Vol] 134 mmol/L Low 135-145 [facility] Comment on above: Performed By: #### B MP3, MG3, PHOS3, ICA ####[address] [place], [place] Basic Metabolic PanelOrdered By: Hiral Kennedy on 03-06-2021 Anion gap [Moles/Vol] 10 mmol/L 3 - 13 mmol/L [facility] Work Phone: [phone] Calcium [Mass/Vol] 9.0 mg/dL 8.4 - 10. 4 mg/dL [facility] Work Phone: [phone] Chloride [Moles/Vol] 104 mmol/L 98 - 10 7 mmol/L [facility] Work Phone: ) [phone] CO2 [Moles/Vol] 20 mmol/L Low 22 - 30 mmol/L [facility] Work Phone: [phone] Creatinine [Mass/Vol] 0.44 mg/dL Low 0.52 - 1.25 mg/dL [facility] Work Phone: [phone] EGFR IF NonAfrican Djiboutian >90.0 >60 mL/min [facility] Work Phone: [phone] GFR/1.73 sq M.predicted among blacks MDRD (S/P/Bld) [Vol rate/Area] mL/min/{1.73_m2} >60 mL/min [facility] Work Phone: [phone] Glucose [Mass/Vol] 108 mg/dL High 70 - 100 mg/dL [facility] Work Phone: ) [phone] Interpretation and review of laboratory results Abnormal [facility] Work [facility]: ) [phone] Potassium [Moles/Vol] 3.9 mmol/L 3.5 - 5.1 mmol/L [facility] Work Phone: [phone] Sodium [Moles/Vol] 134 mmol/L Low 135 - 145 mmol/L [facility] Work Phone: [phone] Urea nitrogen (BldV) [Mass/Vol] 15 mg/dL 7 - 20 mg/dL [facility] Work Phone: [phone] CBC WITH AUTO DIFFERENTIALOr dered By: Go Main on 03-06-2021 Absolute Baso # 0.1 10*3/uL 0.0 - 0.2 10*3/uL [facility] Work Phone: [phone] Absolute Eos # 0.2 10*3/uL 0.0 - 0.5 10*3/uL [facility] Work Phone: [phone] Absolute Lymph # 1.0 10*3/uL 1.0 - 4.3 10*3/uL [facility] Work Phone: ) [phone] Absolute [place] # 0.7 10*3/uL 0.0 - 0.8 10*3/uL [facility] Work Phone: [phone] Absolute Neut # 6.3 10*3/uL 1.8 - 7.0 10*3/uL [facility] Work Phone: [phone] Basophils/100 WBC (Bld) 0.6 % 0.0 - 2.0 % [facility] Work Phone: [phone] Eosinophils/100 WBC (Bld) 2.5 % 1.0 - 6.0 % [facility] Work Phone: [phone] Granulocytes/100 WBC (Bld) 76.1 % 40.0 - 80.0 % [facility] Work [facility]: [phone] Hematocrit (Bld) [Volume fraction] 35.2 % 35.0 - 47.0 % [facility] Work Phone: [phone] Hemoglobin.gastrointesti nal spec 1 Ql (Stl) 11.7 g/dL 11.7 - 16.0 g/dL [facility] Work Phone: [phone] Interpretation and review of laboratory results Abnormal [email or web address] Work Phone: [phone] Lymphocytes/100 WBC (Bld) 12.1 % Low 20.0 - 40.0 % [facility] Work Phone: [phone] MCH (RBC) [Entitic mass] 26.1 pg 26. 0 - 34.0 pg [facility] Work [facility]: [phone] MCHC (RBC) [Mass/Vol] 33.1 % 32.0 - 36.0 % [facility] Work Phone: ) 222 MCV (RBC) [Entitic vol] 78.9 fL Low 79.0 - 98.0 fL [facility] Work Phone: [phone] Monocytes/100 WBC (Bld) 8.7 % 2.0 - 10.0 % [facility] Work Phone: [phone] Platelet distribution width (Bld) [Ratio] 15.4 % High 11.5 - 14.5 % [facility] Work Phone: [phone] Platelet mean volume (Bld) [Entitic vol] 7.6 fL 7.4 - 10.4 fL [facility] Work Phone: [phone] Platelets (Bld) [#/Vol] 243 10*3/uL 140 - 440 10*3/uL [facility] Work Phone: [phone] RBC (Bld) [#/Vol] 4.46 10*6/uL 3.80 - 5.20 10*6/uL [facility] Work Phone: [phone] WBC (Bld) [#/Vol] 8.2 10*3/uL 3.6 - 10.7 10*3/uL [facility] Work Phone: [phone] Calcium, IonizedOrdered By: Hiral Kennedy on 03-06-2021 Ionized Ca 4.40 mg/dL 4.30 - 5.20 mg/dL [facility] Work Phone: [phone] pH (Bld) 7.32 [pH] [facility] Work Phone: [phone] [facility] Work Phone: [phone] [facility] Work Phone: [phone] Ionized Ca 4.50 mg/dL 4.30 - 5.20 mg/dL [facility] Work Phone: [phone] pH (Bld) 7.43 [pH] [facility] Work Phone: [phone] Calcium,Ionizedon 03-06-2021 Ionized Ca,Measured 4.40 mg/dL Normal 4.30-5.20 [facility] Comment on above: Performed By: #### I CA ####[employer] [place] [address] pH, Ionized Calcium 7.32 Normal 7.31-7.46 [facility] Comment on above: Performed By: #### I CA ####[employer] [address] [place] [address] Ionized Ca,Measured 4.50 mg/dL Normal 4.30-5.20 [facility] Comment on above: Performed By: #### B MP3, MG3, PHOS3, ICA ####[facility] [place], [place] pH, Ionized Calcium 7.43 Normal 7.31-7.46 [facility] Comment on above: Performed By: #### B MP3, MG3, PHOS3, ICA ####[facility] CenterNextland[facility] [address] [place] [address] EKG 12 LeadOrdered By: Hiral Kennedy on 03-06-2021 [facility] Work Phone: [facility] Work Phone: [facility] Work Phone: Glucose,Bedsideon 03-06-2021 Glucose [Mass/Vol] 92 mg/dL Normal 70-100 [facility] Comment on above: Result Comment: Test performed by glucose meter. Results may be 10%-15% lowerthan serum/plasma values. (CLIA ID [id number]) Performed By: #### B GLU ####[facility] [employer] [place] [address] Glucose [Mass/Vol] 116 mg/dL High 70-100 [facility] Comment on above: Result Comment: Test performed by glucose meter. Results may be 10%-15% lowerthan serum/plasma values. (CLIA ID [id number]) Performed By: #### B GLU ####[employer] [address] [place] [address] Glucose [Mass/Vol] 114 mg/dL High 70-100 [facility] Comment on above: Result Comment: Test performed by glucose meter. Results may be 10%-15% lowerthan serum/plasma values. (CLIA ID [id number]) Performed By: #### B GLU ####[employer] [address] [place] [address] Glucose [Mass/Vol] 110 mg/dL High 70-100 [facility] Comment on above: Result Comment: Test performed by glucose meter. Results may be 10%-15% lowerthan serum/plasma values. (CLIA ID [id number]) Performed By: #### B GLU ####[employer] [address] [place] [address] Hemogram w/ Autodiffon 03-06 Abs Baso Cnt 0.1 10*3/uL Normal 0.0-0.2 [facility] Comment on above: Performed By: #### L FT3, HEMDF ####[address] [place], [place] Abs Neutrophile Cnt 6.3 10*3/uL Normal 1.8-7.0 [facility] Comment on above: Performed By: #### L FT3, HEMDF ####[address] Basophils/100 WBC (Bld) 0.6 % Normal 0.0-2.0 [facility] Comment on above: Performed By: #### L FT3, HEMDF ####[address] Eosinophils (Bld) [#/Vol] 0.2 10*3/uL Normal 0.0-0.5 [facility] Comment on above: Performed By: #### L FT3, HEMDF ####[address] Eosinophils/100 WBC (Bld) 2.5 % Normal 1.0-6.0 [facility] Comment on above: Performed By: #### L FT3, HEMDF ####[address] Erythrocyte distribution width (RBC) [Ratio] 15.4 % High 11.5-14.5 [facility] Comment on above: Performed By: #### L FT3, HEMDF ####[address] Granulocytes/100 WBC (Bld) 76.1 % Normal 40.0-80.0 [facility] Comment on above: Performed By: #### L FT3, HEMDF ####[address] Hematocrit (Bld) [Volume fraction] 35.2 % Normal 35.0-47.0 [facility] Comment on above: Performed By: #### L FT3, HEMDF ####[address] [place] Hemoglobin (Bld) [Mass/Vol] 11.7 g/dL Normal 11.7-16.0 [facility] Comment on above: Performed By: #### L FT3, HEMDF ####[address] [place] [address] Lymphocytes (Bld) [#/Vol] 1.0 10*3/uL Normal 1.0-4.3 [facility] Comment on above: Performed By: #### L FT3, HEMDF ####[address] [place] [address] Lymphocytes/100 WBC (Bld) 12.1 % Low 20.0-40.0 [facility] Comment on above: Performed By: #### L FT3, HEMDF ####[address] MCH (RBC) [Entitic mass] 26.1 pg Normal 26.0-34.0 [facility] Comment on above: Performed By: #### L FT3, HEMDF ####[address] MCHC 33.1 % Normal 32.0-36.0 [facility] Comment on above: Performed By: #### L FT3, HEMDF ####[address] MCV (RBC) [Entitic vol] 78.9 fL Low 79.0-98.0 [facility] Comment on above: Performed By: #### L FT3, HEMDF ####[address] [place], [place] Monocytes (Bld) [#/Vol] 0.7 10*3/uL Normal 0.0-0.8 [facility] Comment on above: Performed By: #### L FT3, HEMDF ####[address] [place] [address] Monocytes/100 WBC (Bld) 8.7 % Normal 2.0-10.0 [facility] Comment on above: Performed By: #### L FT3, HEMDF ####[address] [place] Platelet mean volume (Bld) [Entitic vol] 7.6 fL Normal 7.4-10.4 [facility] Comment on above: Performed By: #### L FT3, HEMDF ####[address] [place], [place] Platelets (Bld) [#/Vol] 243 10*3/uL Normal 140-440 [facility] Comment on above: Performed By: #### L FT3, HEMDF ####[id number] [place], [place] RBC (Bld) [#/Vol] 4.46 10*6/uL Normal 3.80-5.20 [facility] Comment on above: Performed By: #### L FT3, HEMDF ####[address] WBC (Bld) [#/Vol] 8.2 10*3/uL Normal 3.6-10.7 [facility] Comment on above: Performed By: #### L FT3, HEMDF ####[id number] [place], [place] Hepatic Functionon 1 ALP [Catalytic activity/Vol] 52 U/L Normal 38-126 [facility] Comment on above: Performed By: #### L FT3, HEMDF ####[id number] [place], [place] ALT [Catalytic activity/Vol] 13 U/L Normal 0-34 [facility] Comment on above: Result Comment: The ALT test is performed by an updated assay method.Please note that the reference intervals have beenchanged and are now sex specific. Performed By: #### L FT3, HEMDF ####[id number] [place], [place] AST [Catalytic activity/Vol] 21 U/L Normal 15-46 [facility] Comment on above: Performed By: #### L FT3, HEMDF ####[facility] [facility] [id number] [place] [id number] Bilirubin [Mass/Vol] 0.6 mg/dL Normal 0.2-1.3 [facility] Comment on above: Performed By: #### L FT3, HEMDF ####[employer] [id number] [place], [place] [id number] Protein [Mass/Vol] 7.8 g/dL Normal 6.3-8.2 [facility] Comment on above: Performed By: #### L FT3, HEMDF ####[employer] [id number] [place] [address] Bilirubin.indirect [Mass/Vol] 0.0 mg/dL Normal 0.0-0.3 [facility] Comment on above: Performed By: #### L FT3, HEMDF ####[employer] [id number] [place] [address] Albumin [Mass/Vol] 4.3 g/dL Normal 3.5-5.0 [facility] Comment on above: Performed By: #### L FT3, HEMDF ####[employer] [address] [place] [address] Hepatic Function PanelOrdere d By: Go Main on 03-06-2021 Albumin [Mass/Vol] 4.3 g/dL 3.5 - 5.0 g/dL [facility] Work Phone: [phone] ALP (Bld) [Catalytic activity/Vol] 52 U/L 38 - 126 U/L [facility] Work Phone: [phone] ALT [Catalytic activity/Vol] 13 U/L 0 - 34 U/L [facility] Work Phone: [phone] AST [Catalytic activity/Vol] 21 U/L 15 - 46 U/L [facility] Work Phone: [phone] Bilirubin [Mass/Vol] 0.6 mg/dL 0.2 - 1 .3 mg/dL [facility] Work Phone: [phone] Bilirubin.indirect [Mass/Vol] 0.0 mg/dL 0.0 - 0.3 mg/dL [facility] Work Phone: 1) Free PSA/Total PSA [Mass fraction] 7.8 g/dL 6.3 - 8.2 g/dL [facility] Work Phone: 1) [facility] Work Phone: 1) [facility] Work Phone: [phone] Magnesiumon 03-06-2021 Magnesium [Mass/Vol] 2.1 mg/dL Normal 1.6-2.3 [facility] Comment on above: Performed By: #### B MP3, MG3, PHOS3 ####[employer] [id number] [place] [address] Magnesium [Mass/Vol] 2.2 mg/dL Normal 1.6-2.3 [facility] Comment on above: Performed By: #### B MP3, MG3, PHOS3, ICA ####[employer] [address] [place] [address] MagnesiumOrdered By: Con Butler on 03-06-2021 Magnesium [Mass/Vol] 2.1 mg/dL 1.6 - 2 .3 mg/dL [facility] Work Phone: [phone] MagnesiumOrdered By: Hiral frank on 03-06-2021 Magnesium [Mass/Vol] 2.2 mg/dL 1.6 - 2 .3 mg/dL [facility] Work Phone: [phone] Panel InformationOrdered By: Rachael Butler on 03-06-2021 [facility] Work Phone: [phone] [facility] Work Phone: [phone] Panel InformationOrdered By: Hiral Kennedy on 03-06-2021 [facility] Work Phone: [phone] [facility] Work Phone: [phone] Panel InformationOrdered By: Go Main on 03-06-2021 [facility] Work Phone: [phone] [facility] Work Phone: [phone] POCT GlucoseOrdered By: Ben Butler on 03-06-2021 Glucose [Mass/Vol] 92 mg/dL 70 - 100 mg/dL [facility] Work Phone: [phone] [facility] Work Phone: [phone] [facility] Work Phone: [phone] Glucose [Mass/Vol] 116 mg/dL High 70 - 100 mg/dL [facility] Work Phone: [phone] Interpretation and review of laboratory results Abnormal [facility] Work Phone: [phone] [facility] Work Phone: [phone] [facility] Work Phone: [phone] Glucose [Mass/Vol] 114 mg/dL High 70 - 100 mg/dL [facility] Work Phone: [phone] Interpretation and review of laboratory results Abnormal [facility] Work Phone: [phone] [facility] Work Phone: [phone] [facility] Work Phone: [phone] Glucose [Mass/Vol] 110 mg/dL High 70 - 100 mg/dL [facility] Work Phone: [phone] Interpretation and review of laboratory results Abnormal [facility] Work Phone: [phone] [facility] Work Phone: [phone] [facility] Work Phone: [phone] Phosphoruson 03-06-2021 Phosphate [Mass/Vol] 3.7 mg/dL Normal 2.5-4.5 [facility] Comment on above: Performed By: #### B MP3, MG3, PHOS3 ####[facility] [address] [place] [address] Phosphate [Mass/Vol] 3.3 mg/dL Normal 2.5-4.5 [facility] Comment on above: Performed By: #### B MP3, MG3, PHOS3, ICA ####[facility] [address] [place] [address] PhosphorusOrdered By: Rohit Butler on 03-06-2021 Phosphate [Mass/Vol] 3.7 mg/dL 2.5 - 4 .5 mg/dL [facility] Work Phone: PhosphorusOrdered By: Hiral navarro on 03-06-2021 Phosphate [Mass/Vol] 3.3 mg/dL 2.5 - 4 .5 mg/dL [facility] Work Phone: Basic Metabolic Panelon 06-2 Anion gap [Moles/Vol] 7 mmol/L Normal 3-13 [facility] Comment on above: Performed By: #### I CA, PHOS3, BMP3, MG3 ####[facility] [id number] [place] [address] Calcium [Mass/Vol] 8.0 mg/dL Low 8.4-10.4 [facility] Comment on above: Performed By: #### I CA, PHOS3, BMP3, MG3 ####[employer] [address] [place] [address] CO2 [Moles/Vol] 19 mmol/L Low 22-30 [facility] Comment on above: Performed By: #### I CA, PHOS3, BMP3, MG3 ####[facility] [address] [place] [address] Glucose [Mass/Vol] 420 mg/dL High 70-100 [facility] Comment on above: Performed By: #### I CA, PHOS3, BMP3, MG3 ####[facility] [place] [address] Urea nitrogen [Mass/Vol] 17 mg/dL Normal 7-20 [facility] Comment on above: Performed By: #### I CA, PHOS3, BMP3, MG3 ####[facility] [address] [place] [address] Creatinine [Mass/Vol] 0.79 mg/dL Normal 0.52-1.25 [facility] Comment on above: Performed By: #### I CA, PHOS3, BMP3, MG3 ####[facility] [address] [place] [address] eGFR OTHER > 90.0 Normal >60 [facility] Comment on above: Result Comment: KDIG O guidelines provide the following GFR categories:Stage GFR(ml/min/1.73 m2) TermsG1 >=90 Normal or highG2 60-89 Mildly decreased*G3a 45-59 Mildly to moderately [id number] 30-44 Moderately to severely decreasedG4 15-29 Severely decreasedG5 <15 Kidney failure*Relative to young adult level.In the absence of evidence of kidney damage, neither GFRcategory G1 nor G2 fulfill the criteria for CKD.The CKD-EPI equation is validated in individuals 18 yearsof age and older. Currently the best equation forestimating glomerular filtration rate (GFR) from serumcreatinine in children is the Bedside Boyer equation.It is less accurate in patients with extremes of musclemass, restriction of dietary protein, ingestion of creatine,extra-renal metabolism of creatinine, or treatment withmedications that affect renal tubular creatinine secretion. Performed By: #### I CA, PHOS3, BMP3, MG3 ####[address] [place] [address] GFR/1.73 sq M.predicted among blacks MDRD (S/P/Bld) [Vol rate/Area] mL/min/{1.73_m2} Normal >60 [facility] Comment on above: Performed By: #### I CA, PHOS3, BMP3, MG3 ####[address] Potassium [Moles/Vol] 4.9 mmol/L Normal 3.5-5.1 [facility] Comment on above: Result Comment: Slig htly hemolysed, interpret with caution. Performed By: #### I CA, PHOS3, BMP3, MG3 ####[address] Sodium [Moles/Vol] 130 mmol/L Low 135-145 [facility] Comment on above: Performed By: #### I CA, PHOS3, BMP3, MG3 ####[address] [place], [place] Chloride [Moles/Vol] 103 mmol/L Normal 98-107 [facility] Comment on above: Performed By: #### I CA, PHOS3, BMP3, MG3 ####[address] Calcium [Mass/Vol] 9.2 mg/dL Normal 8.4-10.4 [facility] Comment on above: Performed By: #### I CA, PHOS3, TRIG3, LFT3, MG3, HEMDF, BMP3 ####[address] [place], [place] #### ZINC2 ####The performing lab is in the report. Anion gap [Moles/Vol] 11 mmol/L Normal 3-13 [facility] Comment on above: Performed By: #### I CA, PHOS3, TRIG3, LFT3, MG3, HEMDF, BMP3 ####[address] #### ZINC2 ####The performing lab is in the report. CO2 [Moles/Vol] 23 mmol/L Normal 22-30 [facility] Comment on above: Performed By: #### I CA, PHOS3, TRIG3, LFT3, MG3, HEMDF, BMP3 ####[address] #### ZINC2 ####The performing lab is in the report. Creatinine [Mass/Vol] 0.59 mg/dL Normal 0.52-1.25 [facility] Comment on above: Performed By: #### I CA, PHOS3, TRIG3, LFT3, MG3, HEMDF, BMP3 ####[address] #### ZINC2 ####The performing lab is in the report. eGFR OTHER > 90.0 Normal >60 [facility] Comment on above: Result Comment: KDIG O guidelines provide the following GFR categories:Stage GFR(ml/min/1.73 m2) TermsG1 >=90 Normal or highG2 60-89 Mildly decreased*G3a 45-59 Mildly to moderately [id number] 30-44 Moderately to severely decreasedG4 15-29 Severely decreasedG5 <15 Kidney failure*Relative to young adult level.In the absence of evidence of kidney damage, neither GFRcategory G1 nor G2 fulfill the criteria for CKD.The CKD-EPI equation is validated in individuals 18 yearsof age and older. Currently the best equation forestimating glomerular filtration rate (GFR) from serumcreatinine in children is the Bedside Boyer equation.It is less accurate in patients with extremes of musclemass, restriction of dietary protein, ingestion of creatine,extra-renal metabolism of creatinine, or treatment withmedications that affect renal tubular creatinine secretion. Performed By: #### I CA, PHOS3, TRIG3, LFT3, MG3, HEMDF, BMP3 ####[address] #### ZINC2 ####The performing lab is in the report. GFR/1.73 sq M.predicted among blacks MDRD (S/P/Bld) [Vol rate/Area] mL/min/{1.73_m2} Normal >60 [facility] Comment on above: Performed By: #### I CA, PHOS3, TRIG3, LFT3, MG3, HEMDF, BMP3 ####[address] #### ZINC2 ####The performing lab is in the report. Glucose [Mass/Vol] 82 mg/dL Normal 70-100 [facility] Comment on above: Performed By: #### I CA, PHOS3, TRIG3, LFT3, MG3, HEMDF, BMP3 ####[address] #### ZINC2 ####The performing lab is in the report. Urea nitrogen [Mass/Vol] 14 mg/dL Normal 7-20 [facility] Comment on above: Performed By: #### I CA, PHOS3, TRIG3, LFT3, MG3, HEMDF, BMP3 ####[address] #### ZINC2 ####The performing lab is in the report. Potassium [Moles/Vol] 3.8 mmol/L Normal 3.5-5.1 [facility] Comment on above: Performed By: #### I CA, PHOS3, TRIG3, LFT3, MG3, HEMDF, BMP3 ####[address] #### ZINC2 ####The performing lab is in the report. Sodium [Moles/Vol] 137 mmol/L Normal 135-145 [facility] Comment on above: Performed By: #### I CA, PHOS3, TRIG3, LFT3, MG3, HEMDF, BMP3 ####[address] [place] [address]#### ZINC2 ####The performing lab is in the report. Chloride [Moles/Vol] 103 mmol/L Normal 98-107 [facility] Comment on above: Performed By: #### I CA, PHOS3, TRIG3, LFT3, MG3, HEMDF, BMP3 ####[address] [place] [address]#### ZINC2 ####The performing lab is in the report. Basic Metabolic PanelOrdered By: Hiral Kennedy on 03-05-2021 Anion gap [Moles/Vol] 7 mmol/L 3 - 13 mmol/L [email or web address] Work Phone: Calcium [Mass/Vol] 8.0 mg/dL Low 8.4 - 10. 4 mg/dL [facility] Work Phone: [phone] Chloride [Moles/Vol] 103 mmol/L 98 - 10 7 mmol/L [facility] Work Phone: [phone] CO2 [Moles/Vol] 19 mmol/L Low 22 - 30 mmol/L [facility] Work Phone: [phone] Creatinine [Mass/Vol] 0.79 mg/dL 0.52 - 1.25 mg/dL [facility] Work Phone: [phone] EGFR IF NonAfrican Djiboutian >90.0 >60 mL/min [facility] Work Phone: [phone] GFR/1.73 sq M.predicted among blacks MDRD (S/P/Bld) [Vol rate/Area] mL/min/{1.73_m2} >60 mL/min [facility] Work Phone: [phone] Glucose [Mass/Vol] 420 mg/dL High 70 - 100 mg/dL [facility] Work Phone: [phone] Potassium [Moles/Vol] 4.9 mmol/L 3.5 - 5.1 mmol/L [facility] Work Phone: Sodium [Moles/Vol] 130 mmol/L Low 135 - 145 mmol/L [facility] Work Phone: [phone] Urea nitrogen (BldV) [Mass/Vol] 17 mg/dL 7 - 20 mg/dL [facility] Work Phone: [phone] Basic Metabolic PanelOrdered By: Go Main on 03-05-2021 Anion gap [Moles/Vol] 11 mmol/L 3 - 13 mmol/L [facility] Work Phone: [phone] Calcium [Mass/Vol] 9.2 mg/dL 8.4 - 10. 4 mg/dL [facility] Work Phone: [phone] Chloride [Moles/Vol] 103 mmol/L 98 - 10 7 mmol/L [facility] Work Phone: [phone] CO2 [Moles/Vol] 23 mmol/L 22 - 30 mmol/L [facility] Work Phone: [phone] Creatinine [Mass/Vol] 0.59 mg/dL 0.52 - 1.25 mg/dL [facility] Work Phone: [phone] EGFR IF NonAfrican Djiboutian >90.0 >60 mL/min [facility] Work Phone: [phone] GFR/1.73 sq M.predicted among blacks MDRD (S/P/Bld) [Vol rate/Area] mL/min/{1.73_m2} >60 mL/min [facility] Work Phone: [phone] Glucose [Mass/Vol] 82 mg/dL 70 - 100 mg/dL [facility] Work Phone: [phone] Potassium [Moles/Vol] 3.8 mmol/L 3.5 - 5.1 mmol/L [facility] Work Phone: [phone] Sodium [Moles/Vol] 137 mmol/L 135 - 145 mmol/L [facility] Work Phone: [phone] Urea nitrogen (BldV) [Mass/Vol] 14 mg/dL 7 - 20 mg/dL [facility] Work Phone: [phone] CALCIUM, IONIZEDOrdered By: Arlet Salinas on 03-05-2021 Interpretation and review of laboratory results Abnormal [facility] Work Phone: [phone] Ionized Ca 3.90 mg/dL Low 4.30 - 5.20 mg/dL [facility] Work Phone: [phone] pH (Bld) 7.42 [pH] [facility] Work Phone: [phone] [facility] Work Phone: [phone] [facility] Work Phone: [phone] CBC WITH AUTO DIFFERENTIALOr dered By: Go Main on 03-05-2021 Absolute Baso # 0.1 10*3/uL 0.0 - 0.2 10*3/uL [facility] Work Phone: [phone] Absolute Eos # 0.3 10*3/uL 0.0 - 0.5 10*3/uL [facility] Work Phone: [phone]() 222 Absolute Lymph # 1.8 10*3/uL 1.0 - 4.3 10*3/uL [facility] Work Phone: [phone] Absolute [place] # 0.8 10*3/uL 0.0 - 0.8 10*3/uL [facility] Work Phone: [phone] 222 Absolute Neut # 4.9 10*3/uL 1.8 - 7.0 10*3/uL [facility] Work Phone: [phone] 222 Basophils/100 WBC (Bld) 0.9 % 0.0 - 2.0 % [facility] Work Phone: [phone]) 222 Eosinophils/100 WBC (Bld) 3.5 % 1.0 - 6.0 % [facility] Work Phone: [phone]) 222 Granulocytes/100 WBC (Bld) 62.7 % 40.0 - 80.0 % [facility] Work Phone: [phone] 222 Hematocrit (Bld) [Volume fraction] 34.7 % Low 35.0 - 47.0 % [facility] Work Phone: [phone] Hemoglobin.gastrointesti nal spec 1 Ql (Stl) 11.2 g/dL Low 11.7 - 16.0 g/dL [facility] Work Phone: [phone] Interpretation and review of laboratory results Abnormal [facility] Work Phone: [phone] 222 Lymphocytes/100 WBC (Bld) 23.2 % 20.0 - 40.0 % [facility] Work Phone: [phone] 222 MCH (RBC) [Entitic mass] 26.3 pg 26. 0 - 34.0 pg [facility] Work Phone: [phone] 222 MCHC (RBC) [Mass/Vol] 32.2 % 32.0 - 36.0 % [facility] Work Phone: [phone] 222 MCV (RBC) [Entitic vol] 81.6 fL 79.0 - 98.0 fL [facility] Work Phone: [phone]() 222 Monocytes/100 WBC (Bld) 9.7 % 2.0 - 10.0 % [facility] Work Phone: [phone]() 222 Platelet distribution width (Bld) [Ratio] 15.6 % High 11.5 - 14.5 % [facility] Work Phone: [phone]() 222 Platelet mean volume (Bld) [Entitic vol] 7.9 fL 7.4 - 10.4 fL [facility] Work Phone: [phone]) 222 Platelets (Bld) [#/Vol] 227 10*3/uL 140 - 440 10*3/uL [facility] Work Phone: [phone]() 222 RBC (Bld) [#/Vol] 4.26 10*6/uL 3.80 - 5.20 10*6/uL [facility] Work Phone: [phone] WBC (Bld) [#/Vol] 7.8 10*3/uL 3.6 - 10.7 10*3/uL [facility] Work Phone: [phone] [facility] Work Phone: [phone] [facility] Work Phone: [phone] 222 Calcium, IonizedOrdered By: Hiral Kennedy on 03-05-2021 Interpretation and review of laboratory results Abnormal [facility] Work Phone: [phone] Ionized Ca 4.00 mg/dL Low 4.30 - 5.20 mg/dL [facility] Work Phone: [phone] pH (Bld) 7.31 [pH] [facility] Work Phone: [phone] [facility] Work Phone: [phone] [facility] Work Phone: [phone] Calcium,Ionizedon 03-05-2021 Ionized Ca,Measured 4.00 mg/dL Low 4.30-5.20 [facility] Comment on above: Performed By: #### I CA, PHOS3, BMP3, MG3 ####[address] pH, Ionized Calcium 7.31 Normal 7.31-7.46 [facility] Comment on above: Performed By: #### I CA, PHOS3, BMP3, MG3 ####[address] Ionized Ca,Measured 3.90 mg/dL Low 4.30-5.20 [facility] Comment on above: Performed By: #### I CA, PHOS3, TRIG3, LFT3, MG3, HEMDF, BMP3 ####[address] #### ZINC2 ####The performing lab is in the report. pH, Ionized Calcium 7.42 Normal 7.31-7.46 [facility] Comment on above: Performed By: #### I CA, PHOS3, TRIG3, LFT3, MG3, HEMDF, BMP3 ####[address] #### ZINC2 ####The performing lab is in the report. Glucose,Bedsideon 03-05-2021 Glucose [Mass/Vol] 98 mg/dL Normal 70-100 [facility] Comment on above: Result Comment: Test performed by glucose meter. Results may be 10%-15% lowerthan serum/plasma values. (CLIA ID [id number]) Performed By: #### B GLU ####[address] Glucose [Mass/Vol] 97 mg/dL Normal 70-100 [facility] Comment on above: Result Comment: Test performed by glucose meter. Results may be 10%-15% lowerthan serum/plasma values. (CLIA ID [id number]) Performed By: #### B GLU ####[address] Glucose [Mass/Vol] 100 mg/dL Normal 70-100 [facility] Comment on above: Result Comment: Test performed by glucose meter. Results may be 10%-15% lowerthan serum/plasma values. (CLIA ID [id number]) Performed By: #### B GLU ####[address] Hemogram w/ Autodiffon 03-05 Abs Baso Cnt 0.1 10*3/uL Normal 0.0-0.2 [facility] Comment on above: Performed By: #### I CA, PHOS3, TRIG3, LFT3, MG3, HEMDF, BMP3 ####[address] #### ZINC2 ####The performing lab is in the report. Abs Neutrophile Cnt 4.9 10*3/uL Normal 1.8-7.0 [facility] Comment on above: Performed By: #### I CA, PHOS3, TRIG3, LFT3, MG3, HEMDF, BMP3 ####[address] #### ZINC2 ####The performing lab is in the report. Basophils/100 WBC (Bld) 0.9 % Normal 0.0-2.0 [facility] Comment on above: Performed By: #### I CA, PHOS3, TRIG3, LFT3, MG3, HEMDF, BMP3 ####[address] #### ZINC2 ####The performing lab is in the report. Eosinophils (Bld) [#/Vol] 0.3 10*3/uL Normal 0.0-0.5 [facility] Comment on above: Performed By: #### I CA, PHOS3, TRIG3, LFT3, MG3, HEMDF, BMP3 ####[address] #### ZINC2 ####The performing lab is in the report. Eosinophils/100 WBC (Bld) 3.5 % Normal 1.0-6.0 [facility] Comment on above: Performed By: #### I CA, PHOS3, TRIG3, LFT3, MG3, HEMDF, BMP3 ####[address] #### ZINC2 ####The performing lab is in the report. Erythrocyte distribution width (RBC) [Ratio] 15.6 % High 11.5-14.5 [facility] Comment on above: Performed By: #### I CA, PHOS3, TRIG3, LFT3, MG3, HEMDF, BMP3 ####[address] [address]#### ZINC2 ####The performing lab is in the report. Granulocytes/100 WBC (Bld) 62.7 % Normal 40.0-80.0 [facility] Comment on above: Performed By: #### I CA, PHOS3, TRIG3, LFT3, MG3, HEMDF, BMP3 ####[address] #### ZINC2 ####The performing lab is in the report. Hematocrit (Bld) [Volume fraction] 34.7 % Low 35.0-47.0 [facility] Comment on above: Performed By: #### I CA, PHOS3, TRIG3, LFT3, MG3, HEMDF, BMP3 ####[address] #### ZINC2 ####The performing lab is in the report. Hemoglobin (Bld) [Mass/Vol] 11.2 g/dL Low 11.7-16.0 [facility] Comment on above: Performed By: #### I CA, PHOS3, TRIG3, LFT3, MG3, HEMDF, BMP3 ####[address] #### ZINC2 ####The performing lab is in the report. Lymphocytes (Bld) [#/Vol] 1.8 10*3/uL Normal 1.0-4.3 [facility] Comment on above: Performed By: #### I CA, PHOS3, TRIG3, LFT3, MG3, HEMDF, BMP3 ####[address] #### ZINC2 ####The performing lab is in the report. Lymphocytes/100 WBC (Bld) 23.2 % Normal 20.0-40.0 [facility] Comment on above: Performed By: #### I CA, PHOS3, TRIG3, LFT3, MG3, HEMDF, BMP3 ####[address] #### ZINC2 ####The performing lab is in the report. MCH (RBC) [Entitic mass] 26.3 pg Normal 26.0-34.0 [facility] Comment on above: Performed By: #### I CA, PHOS3, TRIG3, LFT3, MG3, HEMDF, BMP3 ####[address] #### ZINC2 ####The performing lab is in the report. MCHC 32.2 % Normal 32.0-36.0 [facility] Comment on above: Performed By: #### I CA, PHOS3, TRIG3, LFT3, MG3, HEMDF, BMP3 ####[address] #### ZINC2 ####The performing lab is in the report. MCV (RBC) [Entitic vol] 81.6 fL Normal 79.0-98.0 [facility] Comment on above: Performed By: #### I CA, PHOS3, TRIG3, LFT3, MG3, HEMDF, BMP3 ####[address] #### ZINC2 ####The performing lab is in the report. Monocytes (Bld) [#/Vol] 0.8 10*3/uL Normal 0.0-0.8 [facility] Comment on above: Performed By: #### I CA, PHOS3, TRIG3, LFT3, MG3, HEMDF, BMP3 ####[address] #### ZINC2 ####The performing lab is in the report. Monocytes/100 WBC (Bld) 9.7 % Normal 2.0-10.0 [facility] Comment on above: Performed By: #### I CA, PHOS3, TRIG3, LFT3, MG3, HEMDF, BMP3 ####[address] #### ZINC2 ####The performing lab is in the report. Platelet mean volume (Bld) [Entitic vol] 7.9 fL Normal 7.4-10.4 [facility] Comment on above: Performed By: #### I CA, PHOS3, TRIG3, LFT3, MG3, HEMDF, BMP3 ####[address] #### ZINC2 ####The performing lab is in the report. Platelets (Bld) [#/Vol] 227 10*3/uL Normal 140-440 [facility] Comment on above: Performed By: #### I CA, PHOS3, TRIG3, LFT3, MG3, HEMDF, BMP3 ####[address] #### ZINC2 ####The performing lab is in the report. RBC (Bld) [#/Vol] 4.26 10*6/uL Normal 3.80-5.20 [facility] Comment on above: Performed By: #### I CA, PHOS3, TRIG3, LFT3, MG3, HEMDF, BMP3 ####[address] #### ZINC2 ####The performing lab is in the report. WBC (Bld) [#/Vol] 7.8 10*3/uL Normal 3.6-10.7 [facility] Comment on above: Performed By: #### I CA, PHOS3, TRIG3, LFT3, MG3, HEMDF, BMP3 ####[address] #### ZINC2 ####The performing lab is in the report. Hepatic Functionon 1 ALT [Catalytic activity/Vol] 13 U/L Normal 0-34 [facility] Comment on above: Result Comment: The ALT test is performed by an updated assay method.Please note that the reference intervals have beenchanged and are now sex specific. Performed By: #### I CA, PHOS3, TRIG3, LFT3, MG3, HEMDF, BMP3 ####[address] #### ZINC2 ####The performing lab is in the report. ALP [Catalytic activity/Vol] 44 U/L Normal 38-126 [facility] Comment on above: Performed By: #### I CA, PHOS3, TRIG3, LFT3, MG3, HEMDF, BMP3 ####[address] #### ZINC2 ####The performing lab is in the report. AST [Catalytic activity/Vol] 22 U/L Normal 15-46 [facility] Comment on above: Performed By: #### I CA, PHOS3, TRIG3, LFT3, MG3, HEMDF, BMP3 ####[address] #### ZINC2 ####The performing lab is in the report. Bilirubin [Mass/Vol] 0.9 mg/dL Normal 0.2-1.3 [facility] Comment on above: Performed By: #### I CA, PHOS3, TRIG3, LFT3, MG3, HEMDF, BMP3 ####[address] #### ZINC2 ####The performing lab is in the report. Bilirubin.indirect [Mass/Vol] 0.0 mg/dL Normal 0.0-0.3 [facility] Comment on above: Performed By: #### I CA, PHOS3, TRIG3, LFT3, MG3, HEMDF, BMP3 ####[facility] [address] [address]#### ZINC2 ####The performing lab is in the report. Protein [Mass/Vol] 7.4 g/dL Normal 6.3-8.2 [facility] Comment on above: Performed By: #### I CA, PHOS3, TRIG3, LFT3, MG3, HEMDF, BMP3 ####[facility] [address] [address]#### ZINC2 ####The performing lab is in the report. Albumin [Mass/Vol] 4.0 g/dL Normal 3.5-5.0 [facility] Comment on above: Performed By: #### I CA, PHOS3, TRIG3, LFT3, MG3, HEMDF, BMP3 ####[facility] [address] [address]#### ZINC2 ####The performing lab is in the report. Hepatic Function PanelOrdere d By: Go Main on 03-05-2021 Albumin [Mass/Vol] 4.0 g/dL 3.5 - 5.0 g/dL [facility] Work Phone: ALP (Bld) [Catalytic activity/Vol] 44 U/L 38 - 126 U/L [email or web address] Work Phone: [phone] ALT [Catalytic activity/Vol] 13 U/L 0 - 34 U/L [email or web address] Work Phone: [phone] AST [Catalytic activity/Vol] 22 U/L 15 - 46 U/L [email or web address] Work Phone: [phone] Bilirubin [Mass/Vol] 0.9 mg/dL 0.2 - 1 .3 mg/dL [email or web address] Work Phone: [phone] Bilirubin.indirect [Mass/Vol] 0.0 mg/dL 0.0 - 0.3 mg/dL [email or web address] Work Phone: Free PSA/Total PSA [Mass fraction] 7.4 g/dL 6.3 - 8.2 g/dL [facility] Work Phone: Magnesiumon 03-05-2021 Magnesium [Mass/Vol] 2.8 mg/dL High 1.6-2.3 [facility] Comment on above: Result Comment: Slig htly hemolysed, interpret with caution. Performed By: #### I CA, PHOS3, BMP3, MG3 ####[employer] [id number] [place] [address] Magnesium [Mass/Vol] 2.2 mg/dL Normal 1.6-2.3 [facility] Comment on above: Performed By: #### I CA, PHOS3, TRIG3, LFT3, MG3, HEMDF, BMP3 ####[employer] [id number] [place], [place] [id number]#### ZINC2 ####The performing lab is in the report. MagnesiumOrdered By: Hiral frank on 03-05-2021 Magnesium [Mass/Vol] 2.8 mg/dL High 1.6 - 2 .3 mg/dL [facility] Work Phone: [phone] MagnesiumOrdered By: Go Main on 03-05-2021 Magnesium [Mass/Vol] 2.2 mg/dL 1.6 - 2 .3 mg/dL [facility] Work Phone: No Panel InformationOrdered By: Hiral Kennedy on 03-05-2021 Interpretation and review of laboratory results Abnormal [facility] Work Phone: [facility] Work Phone: [phone] [facility] Work Phone: No Panel InformationOrdered By: Arlet Call on 03-05-2021 [facility] Work Phone: [facility] Work Phone: [phone] POCT GlucoseOrdered By: Pascual Rowley on 03-05-2021 Glucose [Mass/Vol] 98 mg/dL 70 - 100 mg/dL [facility] Work Phone: [facility] Work Phone: [facility] Work Phone: [phone] POCT GlucoseOrdered By: Ben Butler on 03-05-2021 Glucose [Mass/Vol] 97 mg/dL 70 - 100 mg/dL [facility] Work Phone: [phone] [facility] Work Phone: [phone] [facility] Work Phone: [phone] Glucose [Mass/Vol] 100 mg/dL 70 - 100 mg/dL [facility] Work Phone: [phone] [facility] Work Phone: [phone] [facility] Work Phone: [phone] Phosphoruson 03-05-2021 Phosphate [Mass/Vol] 5.3 mg/dL High 2.5-4.5 [facility] Comment on above: Result Comment: Slig htly hemolysed, interpret with caution. Performed By: #### I CA, PHOS3, BMP3, MG3 ####[facility] [address] [place] [address] Phosphate [Mass/Vol] 4.8 mg/dL High 2.5-4.5 [facility] Comment on above: Performed By: #### I CA, PHOS3, TRIG3, LFT3, MG3, HEMDF, BMP3 ####[facility] [address] [address]#### ZINC2 ####The performing lab is in the report. PhosphorusOrdered By: Hiral navarro on 03-05-2021 Phosphate [Mass/Vol] 5.3 mg/dL High 2.5 - 4 .5 mg/dL [facility] Work Phone: [phone] PhosphorusOrdered By: Dallin Main on 03-05-2021 Interpretation and review of laboratory results Abnormal [facility] Work Phone: [phone] Phosphate [Mass/Vol] 4.8 mg/dL High 2.5 - 4 .5 mg/dL [facility] Work Phone: [phone] Triglycerideon 03-05-2021 Triglyceride [Mass/Vol] 124 mg/dL Normal <150 [facility] Comment on above: Performed By: #### I CA, PHOS3, TRIG3, LFT3, MG3, HEMDF, BMP3 ####[address] [place], [place] #### ZINC2 ####The performing lab is in the report. TriglycerideOrdered By: Bryanna bowles Call on 03-05-2021 Triglyceride [Mass/Vol] 124 mg/dL <150 S [facility] Work Phone: Basic Metabolic Panelon 02-06 Anion gap [Moles/Vol] 11 mmol/L Normal 3-13 [facility] Comment on above: Performed By: #### M G3, HEMDF, BMP3, PHOS3, LFT3 ####[address] [place], [place] Calcium [Mass/Vol] 9.8 mg/dL Normal 8.4-10.4 [facility] Comment on above: Performed By: #### M G3, HEMDF, BMP3, PHOS3, LFT3 ####[address] [place], [place] CO2 [Moles/Vol] 23 mmol/L Normal 22-30 [facility] Comment on above: Performed By: #### M G3, HEMDF, BMP3, PHOS3, LFT3 ####[facility] [address] [place], [place] Glucose [Mass/Vol] 103 mg/dL High 70-100 [facility] Comment on above: Performed By: #### M G3, HEMDF, BMP3, PHOS3, LFT3 ####[facility] [address] [place], [place] Urea nitrogen [Mass/Vol] 3 mg/dL Low 7-20 [facility] Comment on above: Performed By: #### M G3, HEMDF, BMP3, PHOS3, LFT3 ####[facility] [address] [place], [place] Creatinine [Mass/Vol] 0.59 mg/dL Normal 0.52-1.25 [facility] Comment on above: Performed By: #### M G3, HEMDF, BMP3, PHOS3, LFT3 ####[address] [place], [place] eGFR OTHER > 90.0 Normal >60 [facility] Comment on above: Result Comment: KDIG O guidelines provide the following GFR categories:Stage GFR(ml/min/1.73 m2) TermsG1 >=90 Normal or highG2 60-89 Mildly decreased*G3a 45-59 Mildly to moderately [id number] 30-44 Moderately to severely decreasedG4 15-29 Severely decreasedG5 <15 Kidney failure*Relative to young adult level.In the absence of evidence of kidney damage, neither GFRcategory G1 nor G2 fulfill the criteria for CKD.The CKD-EPI equation is validated in individuals 18 yearsof age and older. Currently the best equation forestimating glomerular filtration rate (GFR) from serumcreatinine in children is the Bedside Boyer equation.It is less accurate in patients with extremes of musclemass, restriction of dietary protein, ingestion of creatine,extra-renal metabolism of creatinine, or treatment withmedications that affect renal tubular creatinine secretion. Performed By: #### M G3, HEMDF, BMP3, PHOS3, LFT3 ####[address] GFR/1.73 sq M.predicted among blacks MDRD (S/P/Bld) [Vol rate/Area] mL/min/{1.73_m2} Normal >60 [facility] Comment on above: Performed By: #### M G3, HEMDF, BMP3, PHOS3, LFT3 ####[address] [place], [place] Potassium [Moles/Vol] 4.3 mmol/L Normal 3.5-5.1 [facility] Comment on above: Performed By: #### M G3, HEMDF, BMP3, PHOS3, LFT3 ####[address] [place], [place] Chloride [Moles/Vol] 103 mmol/L Normal 98-107 [facility] Comment on above: Performed By: #### M G3, HEMDF, BMP3, PHOS3, LFT3 ####[address] [place], [place] Sodium [Moles/Vol] 137 mmol/L Normal 135-145 [facility] Comment on above: Performed By: #### M G3, HEMDF, BMP3, PHOS3, LFT3 ####[facility] [address] [place] [address] Basic Metabolic PanelOrdered By: Go Main on 03-04-2021 Anion gap [Moles/Vol] 11 mmol/L 3 - 13 mmol/L [facility] Work Phone: [phone] Calcium [Mass/Vol] 9.8 mg/dL 8.4 - 10. 4 mg/dL [facility] Work Phone: [phone] Chloride [Moles/Vol] 103 mmol/L 98 - 10 7 mmol/L [facility] Work Phone: [phone] CO2 [Moles/Vol] 23 mmol/L 22 - 30 mmol/L [facility] Work Phone: [phone] Creatinine [Mass/Vol] 0.59 mg/dL 0.52 - 1.25 mg/dL [facility] Work Phone: [phone] EGFR IF NonAfrican Djiboutian >90.0 >60 mL/min [facility] Work Phone: [phone] GFR/1.73 sq M.predicted among blacks MDRD (S/P/Bld) [Vol rate/Area] mL/min/{1.73_m2} >60 mL/min [facility] Work Phone: [phone] Glucose [Mass/Vol] 103 mg/dL High 70 - 100 mg/dL [facility] Work Phone: [phone] Potassium [Moles/Vol] 4.3 mmol/L 3.5 - 5.1 mmol/L [facility] Work Phone: [phone] Sodium [Moles/Vol] 137 mmol/L 135 - 145 mmol/L [facility] Work Phone: [phone] Urea nitrogen (BldV) [Mass/Vol] 3 mg/dL Low 7 - 20 mg/dL [facility] Work Phone: [phone] CBC WITH AUTO DIFFERENTIALOr dered By: Go Main on 03-04-2021 Absolute Baso # 0.1 10*3/uL 0.0 - 0.2 10*3/uL [facility] Work Phone: [phone] Absolute Eos # 0.3 10*3/uL 0.0 - 0.5 10*3/uL [facility] Work Phone: [phone] Absolute Lymph # 1.5 10*3/uL 1.0 - 4.3 10*3/uL [facility] Work Phone: [phone] Absolute [place] # 0.8 10*3/uL 0.0 - 0.8 10*3/uL [facility] Work Phone: [phone] Absolute Neut # 5.2 10*3/uL 1.8 - 7.0 10*3/uL [facility] Work Phone: [phone] Basophils/100 WBC (Bld) 1.1 % 0.0 - 2.0 % [facility] Work Phone: [phone] Eosinophils/100 WBC (Bld) 3.7 % 1.0 - 6.0 % [facility] Work Phone: [phone] Granulocytes/100 WBC (Bld) 65.8 % 40.0 - 80.0 % [facility] Work Phone: [phone] Hematocrit (Bld) [Volume fraction] 36.1 % 35.0 - 47.0 % [facility] Work Phone: [phone] Hemoglobin.gastrointesti nal spec 1 Ql (Stl) 12.0 g/dL 11.7 - 16.0 g/dL [facility] Work Phone: [phone] Interpretation and review of laboratory results Abnormal [facility] Work Phone: [phone] Lymphocytes/100 WBC (Bld) 19.6 % Low 20.0 - 40.0 % [facility] Work Phone: [phone] MCH (RBC) [Entitic mass] 26.6 pg 26. 0 - 34.0 pg [facility] Work Phone: [phone] MCHC (RBC) [Mass/Vol] 33.2 % 32.0 - 36.0 % [facility] Work Phone: [phone] MCV (RBC) [Entitic vol] 80.2 fL 79.0 - 98.0 fL [facility] Work Phone: [phone] Monocytes/100 WBC (Bld) 9.8 % 2.0 - 10.0 % [facility] Work Phone: Platelet distribution width (Bld) [Ratio] 15.9 % High 11.5 - 14.5 % [facility] Work Phone: Platelet mean volume (Bld) [Entitic vol] 7.3 fL Low 7.4 - 10.4 fL [facility] Work Phone: [phone] Platelets (Bld) [#/Vol] 272 10*3/uL 140 - 440 10*3/uL [facility] Work Phone: [phone] RBC (Bld) [#/Vol] 4.51 10*6/uL 3.80 - 5.20 10*6/uL [facility] Work Phone: [phone] WBC (Bld) [#/Vol] 7.9 10*3/uL 3.6 - 10.7 10*3/uL [facility] Work Phone: [phone] [facility] Work Phone: [phone] [facility] Work Phone: CR Chest Portableon 03-04-20 21 CR Chest Portable Normal [facility] EKG 12 LeadOrdered By: Dilip on 03-04-2021 [facility] Work Phone: [facility] Work Phone: [phone] [facility] Work Phone: Hemogram w/ Autodiffon 03-04 Abs Baso Cnt 0.1 10*3/uL Normal 0.0-0.2 [facility] Comment on above: Performed By: #### M G3, HEMDF, BMP3, PHOS3, LFT3 ####[facility] [address] [place] [address] Abs Neutrophile Cnt 5.2 10*3/uL Normal 1.8-7.0 [facility] Comment on above: Performed By: #### M G3, HEMDF, BMP3, PHOS3, LFT3 ####[address] [place] [address] Basophils/100 WBC (Bld) 1.1 % Normal 0.0-2.0 [facility] Comment on above: Performed By: #### M G3, HEMDF, BMP3, PHOS3, LFT3 ####[address] [place], [place] Eosinophils (Bld) [#/Vol] 0.3 10*3/uL Normal 0.0-0.5 [facility] Comment on above: Performed By: #### M G3, HEMDF, BMP3, PHOS3, LFT3 ####[address] [place], [place] Eosinophils/100 WBC (Bld) 3.7 % Normal 1.0-6.0 [facility] Comment on above: Performed By: #### M G3, HEMDF, BMP3, PHOS3, LFT3 ####[address] [place], [place] Erythrocyte distribution width (RBC) [Ratio] 15.9 % High 11.5-14.5 [facility] Comment on above: Performed By: #### M G3, HEMDF, BMP3, PHOS3, LFT3 ####[address] [place], [place] Granulocytes/100 WBC (Bld) 65.8 % Normal 40.0-80.0 [facility] Comment on above: Performed By: #### M G3, HEMDF, BMP3, PHOS3, LFT3 ####[address] [place], [place] Hematocrit (Bld) [Volume fraction] 36.1 % Normal 35.0-47.0 [facility] Comment on above: Performed By: #### M G3, HEMDF, BMP3, PHOS3, LFT3 ####[address] [place], [place] Hemoglobin (Bld) [Mass/Vol] 12.0 g/dL Normal 11.7-16.0 [facility] Comment on above: Performed By: #### M G3, HEMDF, BMP3, PHOS3, LFT3 ####[address] [place], [place] Lymphocytes (Bld) [#/Vol] 1.5 10*3/uL Normal 1.0-4.3 [facility] Comment on above: Performed By: #### M G3, HEMDF, BMP3, PHOS3, LFT3 ####[address] [place], [place] Lymphocytes/100 WBC (Bld) 19.6 % Low 20.0-40.0 [facility] Comment on above: Performed By: #### M G3, HEMDF, BMP3, PHOS3, LFT3 ####[address] MCH (RBC) [Entitic mass] 26.6 pg Normal 26.0-34.0 [facility] Comment on above: Performed By: #### M G3, HEMDF, BMP3, PHOS3, LFT3 ####[address] MCHC 33.2 % Normal 32.0-36.0 [facility] Comment on above: Performed By: #### M G3, HEMDF, BMP3, PHOS3, LFT3 ####[address] MCV (RBC) [Entitic vol] 80.2 fL Normal 79.0-98.0 [facility] Comment on above: Performed By: #### M G3, HEMDF, BMP3, PHOS3, LFT3 ####[address] [place], [place] Monocytes (Bld) [#/Vol] 0.8 10*3/uL Normal 0.0-0.8 [facility] Comment on above: Performed By: #### M G3, HEMDF, BMP3, PHOS3, LFT3 ####[address] Monocytes/100 WBC (Bld) 9.8 % Normal 2.0-10.0 [facility] Comment on above: Performed By: #### M G3, HEMDF, BMP3, PHOS3, LFT3 ####[address] Platelet mean volume (Bld) [Entitic vol] 7.3 fL Low 7.4-10.4 [facility] Comment on above: Performed By: #### M G3, HEMDF, BMP3, PHOS3, LFT3 ####[address] [place], [place] Platelets (Bld) [#/Vol] 272 10*3/uL Normal 140-440 [facility] Comment on above: Performed By: #### M G3, HEMDF, BMP3, PHOS3, LFT3 ####[address] [place] RBC (Bld) [#/Vol] 4.51 10*6/uL Normal 3.80-5.20 [facility] Comment on above: Performed By: #### M G3, HEMDF, BMP3, PHOS3, LFT3 ####[address] [place] WBC (Bld) [#/Vol] 7.9 10*3/uL Normal 3.6-10.7 [facility] Comment on above: Performed By: #### M G3, HEMDF, BMP3, PHOS3, LFT3 ####[address] [place] Hepatic Functionon 1 ALP [Catalytic activity/Vol] 54 U/L Normal 38-126 [facility] Comment on above: Performed By: #### M G3, HEMDF, BMP3, PHOS3, LFT3 ####[address] [place] ALT [Catalytic activity/Vol] 11 U/L Normal 0-34 [facility] Comment on above: Result Comment: The ALT test is performed by an updated assay method.Please note that the reference intervals have beenchanged and are now sex specific. Performed By: #### M G3, HEMDF, BMP3, PHOS3, LFT3 ####[address] [place], [place] AST [Catalytic activity/Vol] 19 U/L Normal 15-46 [facility] Comment on above: Performed By: #### M G3, HEMDF, BMP3, PHOS3, LFT3 ####[facility] [address] [place], [place] Bilirubin [Mass/Vol] 0.9 mg/dL Normal 0.2-1.3 [facility] Comment on above: Performed By: #### M G3, HEMDF, BMP3, PHOS3, LFT3 ####[address] [place] [address] Bilirubin.indirect [Mass/Vol] 0.0 mg/dL Normal 0.0-0.3 [facility] Comment on above: Performed By: #### M G3, HEMDF, BMP3, PHOS3, LFT3 ####[address] [place] Protein [Mass/Vol] 8.4 g/dL High 6.3-8.2 [facility] Comment on above: Performed By: #### M G3, HEMDF, BMP3, PHOS3, LFT3 ####[facility] [address] [place], [place] Albumin [Mass/Vol] 4.5 g/dL Normal 3.5-5.0 [facility] Comment on above: Performed By: #### M G3, HEMDF, BMP3, PHOS3, LFT3 ####[facility] [address] [place], [place] Hepatic Function PanelOrdere d By: Go Main on 03-04-2021 Albumin [Mass/Vol] 4.5 g/dL 3.5 - 5.0 g/dL [facility] Work Phone: ALP (Bld) [Catalytic activity/Vol] 54 U/L 38 - 126 U/L [facility] Work Phone: ALT [Catalytic activity/Vol] 11 U/L 0 - 34 U/L [facility] Work Phone: AST [Catalytic activity/Vol] 19 U/L 15 - 46 U/L [facility] Work Phone: Bilirubin [Mass/Vol] 0.9 mg/dL 0.2 - 1 .3 mg/dL [facility] Work Phone: [phone] Bilirubin.indirect [Mass/Vol] 0.0 mg/dL 0.0 - 0.3 mg/dL [facility] Work Phone: [phone] Free PSA/Total PSA [Mass fraction] 8.4 g/dL High 6.3 - 8.2 g/dL [facility] Work Phone: [phone] MRI BRAIN W WO CONTRASTOrder ed By: Parish Sanchez on 03-04-2021 [facility] Work Phone: [phone] [facility] Work Phone: [phone] [facility] Work Phone: [phone] MRI Brain w/ + w/o Contrasto n 03-04-2021 MRI Brain w/ + w/o Contrast Normal [facility] Magnesiumon 03-04-2021 Magnesium [Mass/Vol] 2.0 mg/dL Normal 1.6-2.3 [facility] Comment on above: Performed By: #### M G3, HEMDF, BMP3, PHOS3, LFT3 ####[facility] [address] [place] [address] MagnesiumOrdered By: Go Main on 03-04-2021 Magnesium [Mass/Vol] 2.0 mg/dL 1.6 - 2 .3 mg/dL [facility] Work Phone: [phone] No Panel InformationOrdered By: Go Main on 03-04-2021 Interpretation and review of laboratory results Abnormal [facility] Work Phone: [phone] [facility] Work Phone: [phone] [facility] Work Phone: [phone] Phosphoruson 03-04-2021 Phosphate [Mass/Vol] 4.3 mg/dL Normal 2.5-4.5 [facility] Comment on above: Performed By: #### M G3, HEMDF, BMP3, PHOS3, LFT3 ####[address] [address] [place] [address] PhosphorusOrdered By: Dallin Main on 03-04-2021 Phosphate [Mass/Vol] 4.3 mg/dL 2.5 - 4 .5 mg/dL [facility] Work Phone: XR CHEST PORTABLEOrdered By: Purnima Clarke on 03-04-2021 [facility] Work Phone: [facility] Work Phone: [facility] Work Phone: Basic Metabolic Panelon 02-06 Calcium [Mass/Vol] 9.7 mg/dL Normal 8.4-10.4 [facility] Comment on above: Performed By: #### L FT3, MG3, PHOS3, BMP3, HEMDF ####[facility], [place] Glucose [Mass/Vol] 110 mg/dL High 70-100 [facility] Comment on above: Performed By: #### L FT3, MG3, PHOS3, BMP3, HEMDF ####[facility] [address] [place], [place] Urea nitrogen [Mass/Vol] 3 mg/dL Low 7-20 [facility] Comment on above: Performed By: #### L FT3, MG3, PHOS3, BMP3, HEMDF ####[facility] [address] Anion gap [Moles/Vol] 9 mmol/L Normal 3-13 [facility] Comment on above: Performed By: #### L FT3, MG3, PHOS3, BMP3, HEMDF ####[facility] [address], [place] CO2 [Moles/Vol] 26 mmol/L Normal 22-30 [facility] Comment on above: Performed By: #### L FT3, MG3, PHOS3, BMP3, HEMDF ####[facility] [place], [place] Creatinine [Mass/Vol] 0.58 mg/dL Normal 0.52-1.25 [facility] Comment on above: Performed By: #### L FT3, MG3, PHOS3, BMP3, HEMDF ####[facility] [place], [place] eGFR OTHER > 90.0 Normal >60 [facility] Comment on above: Result Comment: KDIG O guidelines provide the following GFR categories:Stage GFR(ml/min/1.73 m2) TermsG1 >=90 Normal or highG2 60-89 Mildly decreased*G3a 45-59 Mildly to moderately [id number] 30-44 Moderately to severely decreasedG4 15-29 Severely decreasedG5 <15 Kidney failure*Relative to young adult level.In the absence of evidence of kidney damage, neither GFRcategory G1 nor G2 fulfill the criteria for CKD.The CKD-EPI equation is validated in individuals 18 yearsof age and older. Currently the best equation forestimating glomerular filtration rate (GFR) from serumcreatinine in children is the Bedside Boyer equation.It is less accurate in patients with extremes of musclemass, restriction of dietary protein, ingestion of creatine,extra-renal metabolism of creatinine, or treatment withmedications that affect renal tubular creatinine secretion. Performed By: #### L FT3, MG3, PHOS3, BMP3, HEMDF ####[facility] [address] [place], [place] GFR/1.73 sq M.predicted among blacks MDRD (S/P/Bld) [Vol rate/Area] mL/min/{1.73_m2} Normal >60 [facility] Comment on above: Performed By: #### L FT3, MG3, PHOS3, BMP3, HEMDF ####[facility] [address] [place], [place] Potassium [Moles/Vol] 4.0 mmol/L Normal 3.5-5.1 [facility] Comment on above: Performed By: #### L FT3, MG3, PHOS3, BMP3, HEMDF ####[facility] [address] [place], [place] Sodium [Moles/Vol] 137 mmol/L Normal 135-145 [facility] Comment on above: Performed By: #### L FT3, MG3, PHOS3, BMP3, HEMDF ####[facility] [address] [place], [place] Chloride [Moles/Vol] 103 mmol/L Normal 98-107 [facility] Comment on above: Performed By: #### L FT3, MG3, PHOS3, BMP3, HEMDF ####[facility] [address] [place] [address] Basic Metabolic PanelOrdered By: Go Main on 03-03-2021 Anion gap [Moles/Vol] 9 mmol/L 3 - 13 mmol/L [facility] Work Phone: [phone] Calcium [Mass/Vol] 9.7 mg/dL 8.4 - 10. 4 mg/dL [facility] Work Phone: ) [phone] Chloride [Moles/Vol] 103 mmol/L 98 - 10 7 mmol/L [facility] Work Phone: [phone] CO2 [Moles/Vol] 26 mmol/L 22 - 30 mmol/L [facility] Work Phone: [phone] Creatinine [Mass/Vol] 0.58 mg/dL 0.52 - 1.25 mg/dL [facility] Work Phone: ) [phone] EGFR IF NonAfrican Djiboutian >90.0 >60 mL/min [facility] Work Phone: [phone] GFR/1.73 sq M.predicted among blacks MDRD (S/P/Bld) [Vol rate/Area] mL/min/{1.73_m2} >60 mL/min [facility] Work Phone: [phone] Glucose [Mass/Vol] 110 mg/dL High 70 - 100 mg/dL [facility] Work Phone: [phone] Interpretation and review of laboratory results Abnormal [facility] Work Phone: [phone] Potassium [Moles/Vol] 4.0 mmol/L 3.5 - 5.1 mmol/L [facility] Work Phone: [phone] Sodium [Moles/Vol] 137 mmol/L 135 - 145 mmol/L [facility] Work Phone: [phone] Urea nitrogen (BldV) [Mass/Vol] 3 mg/dL Low 7 - 20 mg/dL [facility] Work Phone: [phone] CBC WITH AUTO DIFFERENTIALOr dered By: Go Main on 03-03-2021 Absolute Baso # 0.0 10*3/uL 0.0 - 0.2 10*3/uL [facility] Work Phone: [phone] Absolute Eos # 0.2 10*3/uL 0.0 - 0.5 10*3/uL [facility] Work Phone: [phone] Absolute Lymph # 1.5 10*3/uL 1.0 - 4.3 10*3/uL [facility] Work Phone: [phone] Absolute [place] # 0.9 10*3/uL High 0.0 - 0.8 10*3/uL [facility] Work Phone: [phone] Absolute Neut # 5.5 10*3/uL 1.8 - 7.0 10*3/uL [facility] Work Phone: [phone] Basophils/100 WBC (Bld) 0.6 % 0.0 - 2.0 % [facility] Work Phone: [phone] Eosinophils/100 WBC (Bld) 2.3 % 1.0 - 6.0 % [facility] Work Phone: [phone] Granulocytes/100 WBC (Bld) 68.3 % 40.0 - 80.0 % [facility] Work Phone: [phone] Hematocrit (Bld) [Volume fraction] 35.8 % 35.0 - 47.0 % [facility] Work Phone: [phone] Hemoglobin.gastrointesti nal spec 1 Ql (Stl) 11.9 g/dL 11.7 - 16.0 g/dL [facility] Work Phone: [phone] Interpretation and review of laboratory results Abnormal [facility] Work Phone: [phone] Lymphocytes/100 WBC (Bld) 18.1 % Low 20.0 - 40.0 % [facility] Work Phone: [phone] MCH (RBC) [Entitic mass] 26.5 pg 26. 0 - 34.0 pg [facility] Work Phone: [phone] MCHC (RBC) [Mass/Vol] 33.4 % 32.0 - 36.0 % [facility] Work Phone: [phone] MCV (RBC) [Entitic vol] 79.4 fL 79.0 - 98.0 fL [facility] Work Phone: [phone] Monocytes/100 WBC (Bld) 10.7 % High 2.0 - 10.0 % [facility] Work Phone: [phone] Platelet distribution width (Bld) [Ratio] 14.9 % High 11.5 - 14.5 % [facility] Work Phone: [phone] Platelet mean volume (Bld) [Entitic vol] 7.5 fL 7.4 - 10.4 fL [facility] Work Phone: [phone] Platelets (Bld) [#/Vol] 290 10*3/uL 140 - 440 10*3/uL [facility] Work Phone: [phone] RBC (Bld) [#/Vol] 4.51 10*6/uL 3.80 - 5.20 10*6/uL [facility] Work Phone: [phone] WBC (Bld) [#/Vol] 8.1 10*3/uL 3.6 - 10.7 10*3/uL [facility] Work Phone: [phone] [facility] Work Phone: [phone] [facility] Work Phone: [phone] Chest Abdomen Pelvis W Co ntrastOrdered By: David Long on 03-03-2021 [email or web address] Work Phone: [phone] [facility] Work Phone: [phone] [facility] Work Phone: [phone] Chest/Abdomen/Pelvis (IV Only)on 03-03-2021 CT Chest/Abdomen/Pelvis (IV Only) Normal [facility] Hemogram w/ Autodiffon 03-03 Abs Baso Cnt 0.0 10*3/uL Normal 0.0-0.2 [facility] Comment on above: Performed By: #### L FT3, MG3, PHOS3, BMP3, HEMDF ####[facility] [place] [address] Abs Neutrophile Cnt 5.5 10*3/uL Normal 1.8-7.0 [facility] Comment on above: Performed By: #### L FT3, MG3, PHOS3, BMP3, HEMDF ####[id number] [place], [place] Basophils/100 WBC (Bld) 0.6 % Normal 0.0-2.0 [facility] Comment on above: Performed By: #### L FT3, MG3, PHOS3, BMP3, HEMDF ####[id number] [place], [place] Eosinophils (Bld) [#/Vol] 0.2 10*3/uL Normal 0.0-0.5 [facility] Comment on above: Performed By: #### L FT3, MG3, PHOS3, BMP3, HEMDF ####[address] Eosinophils/100 WBC (Bld) 2.3 % Normal 1.0-6.0 [facility] Comment on above: Performed By: #### L FT3, MG3, PHOS3, BMP3, HEMDF ####[address] Erythrocyte distribution width (RBC) [Ratio] 14.9 % High 11.5-14.5 [facility] Comment on above: Performed By: #### L FT3, MG3, PHOS3, BMP3, HEMDF ####[address] Granulocytes/100 WBC (Bld) 68.3 % Normal 40.0-80.0 [facility] Comment on above: Performed By: #### L FT3, MG3, PHOS3, BMP3, HEMDF ####[address] Hematocrit (Bld) [Volume fraction] 35.8 % Normal 35.0-47.0 [facility] Comment on above: Performed By: #### L FT3, MG3, PHOS3, BMP3, HEMDF ####[address] Hemoglobin (Bld) [Mass/Vol] 11.9 g/dL Normal 11.7-16.0 [facility] Comment on above: Performed By: #### L FT3, MG3, PHOS3, BMP3, HEMDF ####[id number] [place], [place] Lymphocytes (Bld) [#/Vol] 1.5 10*3/uL Normal 1.0-4.3 [facility] Comment on above: Performed By: #### L FT3, MG3, PHOS3, BMP3, HEMDF ####[address] [place], [place] Lymphocytes/100 WBC (Bld) 18.1 % Low 20.0-40.0 [facility] Comment on above: Performed By: #### L FT3, MG3, PHOS3, BMP3, HEMDF ####[address] [place], [place] MCH (RBC) [Entitic mass] 26.5 pg Normal 26.0-34.0 [facility] Comment on above: Performed By: #### L FT3, MG3, PHOS3, BMP3, HEMDF ####[address] MCHC 33.4 % Normal 32.0-36.0 [facility] Comment on above: Performed By: #### L FT3, MG3, PHOS3, BMP3, HEMDF ####[address] [place], [place] MCV (RBC) [Entitic vol] 79.4 fL Normal 79.0-98.0 [facility] Comment on above: Performed By: #### L FT3, MG3, PHOS3, BMP3, HEMDF ####[address] [place], [place] Monocytes (Bld) [#/Vol] 0.9 10*3/uL High 0.0-0.8 [facility] Comment on above: Performed By: #### L FT3, MG3, PHOS3, BMP3, HEMDF ####[address] [place], [place] Monocytes/100 WBC (Bld) 10.7 % High 2.0-10.0 [facility] Comment on above: Performed By: #### L FT3, MG3, PHOS3, BMP3, HEMDF ####[address] [place] [place], [place] Platelet mean volume (Bld) [Entitic vol] 7.5 fL Normal 7.4-10.4 [facility] Comment on above: Performed By: #### L FT3, MG3, PHOS3, BMP3, HEMDF ####[address] [place] [place], [place] Platelets (Bld) [#/Vol] 290 10*3/uL Normal 140-440 [facility] Comment on above: Performed By: #### L FT3, MG3, PHOS3, BMP3, HEMDF ####[address] RBC (Bld) [#/Vol] 4.51 10*6/uL Normal 3.80-5.20 [facility] Comment on above: Performed By: #### L FT3, MG3, PHOS3, BMP3, HEMDF ####[address] [place], [place] WBC (Bld) [#/Vol] 8.1 10*3/uL Normal 3.6-10.7 [facility] Comment on above: Performed By: #### L FT3, MG3, PHOS3, BMP3, HEMDF ####[address] [place], [place] Hepatic Functionon 1 ALP [Catalytic activity/Vol] 49 U/L Normal 38-126 [facility] Comment on above: Performed By: #### L FT3, MG3, PHOS3, BMP3, HEMDF ####[address] [place], [place] ALT [Catalytic activity/Vol] 9 U/L Normal 0-34 [facility] Comment on above: Result Comment: The ALT test is performed by an updated assay method.Please note that the reference intervals have beenchanged and are now sex specific. Performed By: #### L FT3, MG3, PHOS3, BMP3, HEMDF ####[facility] [id number] [place], [place] AST [Catalytic activity/Vol] 19 U/L Normal 15-46 [facility] Comment on above: Performed By: #### L FT3, MG3, PHOS3, BMP3, HEMDF ####[facility] [id number] [place], [place] Bilirubin [Mass/Vol] 0.8 mg/dL Normal 0.2-1.3 [facility] Comment on above: Performed By: #### L FT3, MG3, PHOS3, BMP3, HEMDF ####[address] [place], [place] Bilirubin.indirect [Mass/Vol] 0.0 mg/dL Normal 0.0-0.3 [facility] Comment on above: Performed By: #### L FT3, MG3, PHOS3, BMP3, HEMDF ####[facility] [id number] [place], [place] Protein [Mass/Vol] 7.9 g/dL Normal 6.3-8.2 [facility] Comment on above: Performed By: #### L FT3, MG3, PHOS3, BMP3, HEMDF ####[facility] [id number] [place], [place] Albumin [Mass/Vol] 4.2 g/dL Normal 3.5-5.0 [facility] Comment on above: Performed By: #### L FT3, MG3, PHOS3, BMP3, HEMDF ####[facility] [id number] [place], [place] Hepatic Function PanelOrdere d By: Go Main on 03-03-2021 Albumin [Mass/Vol] 4.2 g/dL 3.5 - 5.0 g/dL [facility] Work Phone: ALP (Bld) [Catalytic activity/Vol] 49 U/L 38 - 126 U/L [facility] Work Phone: ALT [Catalytic activity/Vol] 9 U/L 0 - 34 U/L [facility] Work Phone: AST [Catalytic activity/Vol] 19 U/L 15 - 46 U/L [facility] Work Phone: Bilirubin [Mass/Vol] 0.8 mg/dL 0.2 - 1 .3 mg/dL [facility] Work Phone: Bilirubin.indirect [Mass/Vol] 0.0 mg/dL 0.0 - 0.3 mg/dL [facility] Work Phone: Free PSA/Total PSA [Mass fraction] 7.9 g/dL 6.3 - 8.2 g/dL [facility] Work Phone: Magnesiumon 03-03-2021 Magnesium [Mass/Vol] 2.1 mg/dL Normal 1.6-2.3 [facility] Comment on above: Performed By: #### L FT3, MG3, PHOS3, BMP3, HEMDF ####[facility] [place] [place] [address] MagnesiumOrdered By: Go Main on 03-03-2021 Magnesium [Mass/Vol] 2.1 mg/dL 1.6 - 2 .3 mg/dL [facility] Work Phone: No Panel InformationOrdered By: Go Main on 03-03-2021 [facility] Work Phone: [facility] Work Phone: Phosphoruson 03-03-2021 Phosphate [Mass/Vol] 3.9 mg/dL Normal 2.5-4.5 [facility] Comment on above: Performed By: #### L FT3, MG3, PHOS3, BMP3, HEMDF ####[address] [place] [address] PhosphorusOrdered By: Dallin Main on 03-03-2021 Phosphate [Mass/Vol] 3.9 mg/dL 2.5 - 4 .5 mg/dL [facility] Work Phone: Basic Metabolic Panelon - Anion gap [Moles/Vol] 9 mmol/L Normal 3-13 [facility] Comment on above: Performed By: #### L FT3, BMP3, HEMDF, PHOS3, MG3 ####[facility] [id number] [place], [place] Calcium [Mass/Vol] 9.5 mg/dL Normal 8.4-10.4 [facility] Comment on above: Performed By: #### L FT3, BMP3, HEMDF, PHOS3, MG3 ####[facility] [id number] [place], [place] CO2 [Moles/Vol] 25 mmol/L Normal 22-30 [facility] Comment on above: Performed By: #### L FT3, BMP3, HEMDF, PHOS3, MG3 ####[address] [place], [place] Glucose [Mass/Vol] 120 mg/dL High 70-100 [facility] Comment on above: Performed By: #### L FT3, BMP3, HEMDF, PHOS3, MG3 ####[facility] [id number] [place], [place] Urea nitrogen [Mass/Vol] mg/dL Low 7-20 [facility] Comment on above: Performed By: #### L FT3, BMP3, HEMDF, PHOS3, MG3 ####[facility] [address] [place], [place] Creatinine [Mass/Vol] 0.55 mg/dL Normal 0.52-1.25 [facility] Comment on above: Performed By: #### L FT3, BMP3, HEMDF, PHOS3, MG3 ####[facility] [id number] [place], [place] eGFR OTHER > 90.0 Normal >60 [facility] Comment on above: Result Comment: KDIG O guidelines provide the following GFR categories:Stage GFR(ml/min/1.73 m2) TermsG1 >=90 Normal or highG2 60-89 Mildly decreased*G3a 45-59 Mildly to moderately [id number] 30-44 Moderately to severely decreasedG4 15-29 Severely decreasedG5 <15 Kidney failure*Relative to young adult level.In the absence of evidence of kidney damage, neither GFRcategory G1 nor G2 fulfill the criteria for CKD.The CKD-EPI equation is validated in individuals 18 yearsof age and older. Currently the best equation forestimating glomerular filtration rate (GFR) from serumcreatinine in children is the Bedside Boyer equation.It is less accurate in patients with extremes of musclemass, restriction of dietary protein, ingestion of creatine,extra-renal metabolism of creatinine, or treatment withmedications that affect renal tubular creatinine secretion. Performed By: #### L FT3, BMP3, HEMDF, PHOS3, MG3 ####[address] [place], [place] GFR/1.73 sq M.predicted among blacks MDRD (S/P/Bld) [Vol rate/Area] mL/min/{1.73_m2} Normal >60 [facility] Comment on above: Performed By: #### L FT3, BMP3, HEMDF, PHOS3, MG3 ####[address] [place], [place] Chloride [Moles/Vol] 102 mmol/L Normal 98-107 [facility] Comment on above: Performed By: #### L FT3, BMP3, HEMDF, PHOS3, MG3 ####[address] [place], [place] Potassium [Moles/Vol] 3.2 mmol/L Low 3.5-5.1 [facility] Comment on above: Performed By: #### L FT3, BMP3, HEMDF, PHOS3, MG3 ####[address] [place], [place] Sodium [Moles/Vol] 137 mmol/L Normal 135-145 [facility] Comment on above: Performed By: #### L FT3, BMP3, HEMDF, PHOS3, MG3 ####[address] [place], [place] Basic Metabolic PanelOrdered By: Go Main on 03-02-2021 Anion gap [Moles/Vol] 9 mmol/L 3 - 13 mmol/L [facility] Work Phone: Calcium [Mass/Vol] 9.5 mg/dL 8.4 - 10. 4 mg/dL [facility] Work Phone: [phone] Chloride [Moles/Vol] 102 mmol/L 98 - 10 7 mmol/L [facility] Work Phone: [phone] CO2 [Moles/Vol] 25 mmol/L 22 - 30 mmol/L [facility] Work Phone: [phone] Creatinine [Mass/Vol] 0.55 mg/dL 0.52 - 1.25 mg/dL [facility] Work Phone: [phone] EGFR IF NonAfrican Djiboutian >90.0 >60 mL/min [facility] Work Phone: [phone] GFR/1.73 sq M.predicted among blacks MDRD (S/P/Bld) [Vol rate/Area] mL/min/{1.73_m2} >60 mL/min [facility] Work Phone: [phone] Glucose [Mass/Vol] 120 mg/dL High 70 - 100 mg/dL [facility] Work Phone: [phone] Potassium [Moles/Vol] 3.2 mmol/L Low 3.5 - 5.1 mmol/L [facility] Work Phone: [phone] Sodium [Moles/Vol] 137 mmol/L 135 - 145 mmol/L [facility] Work Phone: [phone] Urea nitrogen (BldV) [Mass/Vol] <2 Low 7 - 20 mg/dL [facility] Work Phone: [phone] CBC WITH AUTO DIFFERENTIALOr dered By: Go Main on 03-02-2021 Absolute Baso # 0.0 10*3/uL 0.0 - 0.2 10*3/uL [facility] Work Phone: [phone] Absolute Eos # 0.2 10*3/uL 0.0 - 0.5 10*3/uL [facility] Work Phone: [phone] Absolute Lymph # 1.3 10*3/uL 1.0 - 4.3 10*3/uL [facility] Work Phone: [phone] Absolute [place] # 0.7 10*3/uL 0.0 - 0.8 10*3/uL [facility] Work Phone: [phone] Absolute Neut # 4.9 10*3/uL 1.8 - 7.0 10*3/uL [facility] Work Phone: [phone] Basophils/100 WBC (Bld) 0.6 % 0.0 - 2.0 % [facility] Work Phone: [phone] Eosinophils/100 WBC (Bld) 2.2 % 1.0 - 6.0 % [facility] Work Phone: [phone] Granulocytes/100 WBC (Bld) 69.4 % 40.0 - 80.0 % [facility] Work Phone: [phone] Hematocrit (Bld) [Volume fraction] 35.8 % 35.0 - 47.0 % [facility] Work Phone: [phone] Hemoglobin.gastrointesti nal spec 1 Ql (Stl) 11.9 g/dL 11.7 - 16.0 g/dL [facility] Work Phone: [phone] Interpretation and review of laboratory results Abnormal [facility] Work Phone: [phone] Lymphocytes/100 WBC (Bld) 17.8 % Low 20.0 - 40.0 % [facility] Work Phone: [phone] MCH (RBC) [Entitic mass] 26.3 pg 26. 0 - 34.0 pg [facility] Work Phone: [phone] MCHC (RBC) [Mass/Vol] 33.2 % 32.0 - 36.0 % [facility] Work Phone: [phone] MCV (RBC) [Entitic vol] 79.2 fL 79.0 - 98.0 fL [facility] Work Phone: [phone] Monocytes/100 WBC (Bld) 10.0 % 2.0 - 10.0 % [facility] Work Phone: [phone] Platelet distribution width (Bld) [Ratio] 14.8 % High 11.5 - 14.5 % [facility] Work Phone: [phone] Platelet mean volume (Bld) [Entitic vol] 7.1 fL Low 7.4 - 10.4 fL [facility] Work Phone: [phone] Platelets (Bld) [#/Vol] 312 10*3/uL 140 - 440 10*3/uL [facility] Work Phone: RBC (Bld) [#/Vol] 4.52 10*6/uL 3.80 - 5.20 10*6/uL [facility] Work Phone: WBC (Bld) [#/Vol] 7.1 10*3/uL 3.6 - 10.7 10*3/uL [facility] Work Phone: [facility] Work Phone: [facility] Work Phone: Hemogram w/ Autodiffon 03-02 Abs Baso Cnt 0.0 10*3/uL Normal 0.0-0.2 [facility] Comment on above: Performed By: #### L FT3, BMP3, HEMDF, PHOS3, MG3 ####[facility] [id number] [place] [address] Abs Neutrophile Cnt 4.9 10*3/uL Normal 1.8-7.0 [facility] Comment on above: Performed By: #### L FT3, BMP3, HEMDF, PHOS3, MG3 ####[facility] [address] [address] Basophils/100 WBC (Bld) 0.6 % Normal 0.0-2.0 [facility] Comment on above: Performed By: #### L FT3, BMP3, HEMDF, PHOS3, MG3 ####[facility] [address] [address] Eosinophils (Bld) [#/Vol] 0.2 10*3/uL Normal 0.0-0.5 [facility] Comment on above: Performed By: #### L FT3, BMP3, HEMDF, PHOS3, MG3 ####[facility] [address] [address] Eosinophils/100 WBC (Bld) 2.2 % Normal 1.0-6.0 [facility] Comment on above: Performed By: #### L FT3, BMP3, HEMDF, PHOS3, MG3 ####[address] [place], [place] Erythrocyte distribution width (RBC) [Ratio] 14.8 % High 11.5-14.5 [facility] Comment on above: Performed By: #### L FT3, BMP3, HEMDF, PHOS3, MG3 ####[address] Granulocytes/100 WBC (Bld) 69.4 % Normal 40.0-80.0 [facility] Comment on above: Performed By: #### L FT3, BMP3, HEMDF, PHOS3, MG3 ####[address] Hematocrit (Bld) [Volume fraction] 35.8 % Normal 35.0-47.0 [facility] Comment on above: Performed By: #### L FT3, BMP3, HEMDF, PHOS3, MG3 ####[address] Hemoglobin (Bld) [Mass/Vol] 11.9 g/dL Normal 11.7-16.0 [facility] Comment on above: Performed By: #### L FT3, BMP3, HEMDF, PHOS3, MG3 ####[address] Lymphocytes (Bld) [#/Vol] 1.3 10*3/uL Normal 1.0-4.3 [facility] Comment on above: Performed By: #### L FT3, BMP3, HEMDF, PHOS3, MG3 ####[address] Lymphocytes/100 WBC (Bld) 17.8 % Low 20.0-40.0 [facility] Comment on above: Performed By: #### L FT3, BMP3, HEMDF, PHOS3, MG3 ####[address] MCH (RBC) [Entitic mass] 26.3 pg Normal 26.0-34.0 [facility] Comment on above: Performed By: #### L FT3, BMP3, HEMDF, PHOS3, MG3 ####[address] [place], [place] MCHC 33.2 % Normal 32.0-36.0 [facility] Comment on above: Performed By: #### L FT3, BMP3, HEMDF, PHOS3, MG3 ####[address] MCV (RBC) [Entitic vol] 79.2 fL Normal 79.0-98.0 [facility] Comment on above: Performed By: #### L FT3, BMP3, HEMDF, PHOS3, MG3 ####[address] Monocytes (Bld) [#/Vol] 0.7 10*3/uL Normal 0.0-0.8 [facility] Comment on above: Performed By: #### L FT3, BMP3, HEMDF, PHOS3, MG3 ####[address] Monocytes/100 WBC (Bld) 10.0 % Normal 2.0-10.0 [facility] Comment on above: Performed By: #### L FT3, BMP3, HEMDF, PHOS3, MG3 ####[address] Platelet mean volume (Bld) [Entitic vol] 7.1 fL Low 7.4-10.4 [facility] Comment on above: Performed By: #### L FT3, BMP3, HEMDF, PHOS3, MG3 ####[address] Platelets (Bld) [#/Vol] 312 10*3/uL Normal 140-440 [facility] Comment on above: Performed By: #### L FT3, BMP3, HEMDF, PHOS3, MG3 ####[address] RBC (Bld) [#/Vol] 4.52 10*6/uL Normal 3.80-5.20 [facility] Comment on above: Performed By: #### L FT3, BMP3, HEMDF, PHOS3, MG3 ####[address] [place], [place] WBC (Bld) [#/Vol] 7.1 10*3/uL Normal 3.6-10.7 [facility] Comment on above: Performed By: #### L FT3, BMP3, HEMDF, PHOS3, MG3 ####[address] [place], [place] Hepatic Functionon 1 ALP [Catalytic activity/Vol] 47 U/L Normal 38-126 [facility] Comment on above: Performed By: #### L FT3, BMP3, HEMDF, PHOS3, MG3 ####[address] ALT [Catalytic activity/Vol] 9 U/L Normal 0-34 [facility] Comment on above: Result Comment: The ALT test is performed by an updated assay method.Please note that the reference intervals have beenchanged and are now sex specific. Performed By: #### L FT3, BMP3, HEMDF, PHOS3, MG3 ####[address] AST [Catalytic activity/Vol] 18 U/L Normal 15-46 [facility] Comment on above: Performed By: #### L FT3, BMP3, HEMDF, PHOS3, MG3 ####[address] [place], [place] Bilirubin [Mass/Vol] 0.8 mg/dL Normal 0.2-1.3 [facility] Comment on above: Performed By: #### L FT3, BMP3, HEMDF, PHOS3, MG3 ####[address] [place], [place] Bilirubin.indirect [Mass/Vol] 0.0 mg/dL Normal 0.0-0.3 [facility] Comment on above: Performed By: #### L FT3, BMP3, HEMDF, PHOS3, MG3 ####[address] [place], [place] Protein [Mass/Vol] 7.8 g/dL Normal 6.3-8.2 [facility] Comment on above: Performed By: #### L FT3, BMP3, HEMDF, PHOS3, MG3 ####[address] [place] Albumin [Mass/Vol] 4.2 g/dL Normal 3.5-5.0 [facility] Comment on above: Performed By: #### L FT3, BMP3, HEMDF, PHOS3, MG3 ####[address] [place] Hepatic Function PanelOrdere d By: Go Main on 03-02-2021 Albumin [Mass/Vol] 4.2 g/dL 3.5 - 5.0 g/dL [facility] Work Phone: ALP (Bld) [Catalytic activity/Vol] 47 U/L 38 - 126 U/L [facility] Work Phone: ALT [Catalytic activity/Vol] 9 U/L 0 - 34 U/L [facility] Work Phone: AST [Catalytic activity/Vol] 18 U/L 15 - 46 U/L [facility] Work Phone: Bilirubin [Mass/Vol] 0.8 mg/dL 0.2 - 1 .3 mg/dL [facility] Work Phone: Bilirubin.indirect [Mass/Vol] 0.0 mg/dL 0.0 - 0.3 mg/dL [facility] Work Phone: Free PSA/Total PSA [Mass fraction] 7.8 g/dL 6.3 - 8.2 g/dL [facility] Work Phone: Magnesiumon 03-02-2021 Magnesium [Mass/Vol] 2.0 mg/dL Normal 1.6-2.3 [facility] Comment on above: Performed By: #### L FT3, BMP3, HEMDF, PHOS3, MG3 ####[facility] [address] [place] [address] MagnesiumOrdered By: Go Main on 03-02-2021 Magnesium [Mass/Vol] 2.0 mg/dL 1.6 - 2 .3 mg/dL [facility] Work Phone: No Panel InformationOrdered By: Go Main on 03-02-2021 Interpretation and review of laboratory results Abnormal [facility] Work Phone: [facility] Work Phone: [facility] Work Phone: Phosphoruson 03-02-2021 Phosphate [Mass/Vol] 4.6 mg/dL High 2.5-4.5 [facility] Comment on above: Performed By: #### L FT3, BMP3, HEMDF, PHOS3, MG3 ####[facility] [id number] [place] [address] PhosphorusOrdered By: Dallin Main on 03-02-2021 Phosphate [Mass/Vol] 4.6 mg/dL High 2.5 - 4 .5 mg/dL [facility] Work Phone: Basic Metabolic Panelon 02-06 Calcium [Mass/Vol] 9.5 mg/dL Normal 8.4-10.4 [facility] Comment on above: Performed By: #### P HOS3, BMP3, MG3, HEMDF, FERR3, FEIBC, LFT3 ####[facility] [id number] [place] [address] Anion gap [Moles/Vol] 9 mmol/L Normal 3-13 [facility] Comment on above: Performed By: #### P HOS3, BMP3, MG3, HEMDF, FERR3, FEIBC, LFT3 ####[facility] [address] [place] [address] CO2 [Moles/Vol] 26 mmol/L Normal 22-30 [facility] Comment on above: Performed By: #### P HOS3, BMP3, MG3, HEMDF, FERR3, FEIBC, LFT3 ####[address] [place], [place] Glucose [Mass/Vol] 120 mg/dL High 70-100 [facility] Comment on above: Performed By: #### P HOS3, BMP3, MG3, HEMDF, FERR3, FEIBC, LFT3 ####[address] [place], [place] Urea nitrogen [Mass/Vol] mg/dL Low 7-20 [facility] Comment on above: Performed By: #### P HOS3, BMP3, MG3, HEMDF, FERR3, FEIBC, LFT3 ####[address] [place], [place] Creatinine [Mass/Vol] 0.55 mg/dL Normal 0.52-1.25 [facility] Comment on above: Performed By: #### P HOS3, BMP3, MG3, HEMDF, FERR3, FEIBC, LFT3 ####[address] eGFR OTHER > 90.0 Normal >60 [facility] Comment on above: Result Comment: KDIG O guidelines provide the following GFR categories:Stage GFR(ml/min/1.73 m2) TermsG1 >=90 Normal or highG2 60-89 Mildly decreased*G3a 45-59 Mildly to moderately [id number] 30-44 Moderately to severely decreasedG4 15-29 Severely decreasedG5 <15 Kidney failure*Relative to young adult level.In the absence of evidence of kidney damage, neither GFRcategory G1 nor G2 fulfill the criteria for CKD.The CKD-EPI equation is validated in individuals 18 yearsof age and older. Currently the best equation forestimating glomerular filtration rate (GFR) from serumcreatinine in children is the Bedside Boyer equation.It is less accurate in patients with extremes of musclemass, restriction of dietary protein, ingestion of creatine,extra-renal metabolism of creatinine, or treatment withmedications that affect renal tubular creatinine secretion. Performed By: #### P HOS3, BMP3, MG3, HEMDF, FERR3, FEIBC, LFT3 ####[address] GFR/1.73 sq M.predicted among blacks MDRD (S/P/Bld) [Vol rate/Area] mL/min/{1.73_m2} Normal >60 [facility] Comment on above: Performed By: #### P HOS3, BMP3, MG3, HEMDF, FERR3, FEIBC, LFT3 ####[address] [place] [address] Potassium [Moles/Vol] 3.3 mmol/L Low 3.5-5.1 [facility] Comment on above: Performed By: #### P HOS3, BMP3, MG3, HEMDF, FERR3, FEIBC, LFT3 ####[address] [place] [address] Chloride [Moles/Vol] 98 mmol/L Normal 98-107 [facility] Comment on above: Performed By: #### P HOS3, BMP3, MG3, HEMDF, FERR3, FEIBC, LFT3 ####[address] [place] [address] Sodium [Moles/Vol] 134 mmol/L Low 135-145 [facility] Comment on above: Performed By: #### P HOS3, BMP3, MG3, HEMDF, FERR3, FEIBC, LFT3 ####[address] [place] [address] Basic Metabolic PanelOrdered By: Go Main on 03-01-2021 Anion gap [Moles/Vol] 9 mmol/L 3 - 13 mmol/L [facility] Work Phone: Calcium [Mass/Vol] 9.5 mg/dL 8.4 - 10. 4 mg/dL [facility] Work Phone: [phone] Chloride [Moles/Vol] 98 mmol/L 98 - 10 7 mmol/L [facility] Work Phone: CO2 [Moles/Vol] 26 mmol/L 22 - 30 mmol/L [facility] Work Phone: Creatinine [Mass/Vol] 0.55 mg/dL 0.52 - 1.25 mg/dL [facility] Work Phone: [phone] EGFR IF NonAfrican [place]ian >90.0 >60 mL/min [facility] Work Phone: [phone] GFR/1.73 sq M.predicted among blacks MDRD (S/P/Bld) [Vol rate/Area] mL/min/{1.73_m2} >60 mL/min [facility] Work Phone: [phone] Glucose [Mass/Vol] 120 mg/dL High 70 - 100 mg/dL [facility] Work Phone: [phone] Potassium [Moles/Vol] 3.3 mmol/L Low 3.5 - 5.1 mmol/L [facility] Work Phone: [phone] Sodium [Moles/Vol] 134 mmol/L Low 135 - 145 mmol/L [facility] Work Phone: [phone] Urea nitrogen (BldV) [Mass/Vol] <2 Low 7 - 20 mg/dL [facility] Work Phone: [phone] CBC WITH AUTO DIFFERENTIALOr dered By: Go Main on 03-01-2021 Absolute Baso # 0.1 10*3/uL 0.0 - 0.2 10*3/uL [facility] Work Phone: [phone] 222 Absolute Eos # 0.1 10*3/uL 0.0 - 0.5 10*3/uL [facility] Work Phone: [phone] Absolute Lymph # 1.0 10*3/uL 1.0 - 4.3 10*3/uL [facility] Work Phone: 1() 222 Absolute [place] # 0.7 10*3/uL 0.0 - 0.8 10*3/uL [facility] Work Phone: [phone] Absolute Neut # 4.5 10*3/uL 1.8 - 7.0 10*3/uL [facility] Work Phone: [phone] Basophils/100 WBC (Bld) 1.0 % 0.0 - 2.0 % [facility] Work Phone: [phone] Eosinophils/100 WBC (Bld) 1.0 % 1.0 - 6.0 % [facility] Work Phone: [phone] Granulocytes/100 WBC (Bld) 70.8 % 40.0 - 80.0 % [facility] Work Phone: [phone] 222 Hematocrit (Bld) [Volume fraction] 35.2 % 35.0 - 47.0 % [facility] Work Phone: [phone] Hemoglobin.gastrointesti nal spec 1 Ql (Stl) 11.8 g/dL 11.7 - 16.0 g/dL [facility] Work Phone: [phone] Interpretation and review of laboratory results Abnormal [facility] Work Phone: [phone] 222 Lymphocytes/100 WBC (Bld) 16.1 % Low 20.0 - 40.0 % [facility] Work Phone: [phone] 222 MCH (RBC) [Entitic mass] 26.3 pg 26. 0 - 34.0 pg [facility] Work Phone: 222 MCHC (RBC) [Mass/Vol] 33.6 % 32.0 - 36.0 % [facility] Work Phone: () 222 MCV (RBC) [Entitic vol] 78.3 fL Low 79.0 - 98.0 fL [facility] Work Phone: ) 222 Monocytes/100 WBC (Bld) 11.1 % High 2.0 - 10.0 % [facility] Work Phone: [phone] Platelet distribution width (Bld) [Ratio] 14.8 % High 11.5 - 14.5 % [facility] Work Phone: [phone] 222 Platelet mean volume (Bld) [Entitic vol] 7.1 fL Low 7.4 - 10.4 fL [facility] Work Phone: ) 222 Platelets (Bld) [#/Vol] 342 10*3/uL 140 - 440 10*3/uL [facility] Work Phone: [phone] RBC (Bld) [#/Vol] 4.50 10*6/uL 3.80 - 5.20 10*6/uL [facility] Work Phone: [phone] WBC (Bld) [#/Vol] 6.3 10*3/uL 3.6 - 10.7 10*3/uL [facility] Work Phone: [phone] [facility] Work Phone: [phone] [facility] Work Phone: [phone] FerritinOrdered By: David nair on 03-01-2021 Ferritin [Mass/Vol] 26 ng/mL Normal 8-252 [facility] Work Phone: Comment on above: Performed By: #### P HOS3, BMP3, MG3, HEMDF, FERR3, FEIBC, LFT3 ####[facility] [id number] [place] [address] [facility] Work Phone: [facility] Work Phone: Hemogram w/ Autodiffon 03-01 Abs Baso Cnt 0.1 10*3/uL Normal 0.0-0.2 [facility] Comment on above: Performed By: #### P HOS3, BMP3, MG3, HEMDF, FERR3, FEIBC, LFT3 ####[id number] [place], [place] Abs Neutrophile Cnt 4.5 10*3/uL Normal 1.8-7.0 [facility] Comment on above: Performed By: #### P HOS3, BMP3, MG3, HEMDF, FERR3, FEIBC, LFT3 ####[address] [place], [place] Basophils/100 WBC (Bld) 1.0 % Normal 0.0-2.0 [facility] Comment on above: Performed By: #### P HOS3, BMP3, MG3, HEMDF, FERR3, FEIBC, LFT3 ####[address] [place], [place] Eosinophils (Bld) [#/Vol] 0.1 10*3/uL Normal 0.0-0.5 [facility] Comment on above: Performed By: #### P HOS3, BMP3, MG3, HEMDF, FERR3, FEIBC, LFT3 ####[address] [place], [place] Eosinophils/100 WBC (Bld) 1.0 % Normal 1.0-6.0 [facility] Comment on above: Performed By: #### P HOS3, BMP3, MG3, HEMDF, FERR3, FEIBC, LFT3 ####[address] Erythrocyte distribution width (RBC) [Ratio] 14.8 % High 11.5-14.5 [facility] Comment on above: Performed By: #### P HOS3, BMP3, MG3, HEMDF, FERR3, FEIBC, LFT3 ####[address] Granulocytes/100 WBC (Bld) 70.8 % Normal 40.0-80.0 [facility] Comment on above: Performed By: #### P HOS3, BMP3, MG3, HEMDF, FERR3, FEIBC, LFT3 ####[address] Hematocrit (Bld) [Volume fraction] 35.2 % Normal 35.0-47.0 [facility] Comment on above: Performed By: #### P HOS3, BMP3, MG3, HEMDF, FERR3, FEIBC, LFT3 ####[address] Hemoglobin (Bld) [Mass/Vol] 11.8 g/dL Normal 11.7-16.0 [facility] Comment on above: Performed By: #### P HOS3, BMP3, MG3, HEMDF, FERR3, FEIBC, LFT3 ####[address] Lymphocytes (Bld) [#/Vol] 1.0 10*3/uL Normal 1.0-4.3 [facility] Comment on above: Performed By: #### P HOS3, BMP3, MG3, HEMDF, FERR3, FEIBC, LFT3 ####[address] Lymphocytes/100 WBC (Bld) 16.1 % Low 20.0-40.0 [facility] Comment on above: Performed By: #### P HOS3, BMP3, MG3, HEMDF, FERR3, FEIBC, LFT3 ####[address] MCH (RBC) [Entitic mass] 26.3 pg Normal 26.0-34.0 [facility] Comment on above: Performed By: #### P HOS3, BMP3, MG3, HEMDF, FERR3, FEIBC, LFT3 ####[address] [place], [place] MCHC 33.6 % Normal 32.0-36.0 [facility] Comment on above: Performed By: #### P HOS3, BMP3, MG3, HEMDF, FERR3, FEIBC, LFT3 ####[address] [place], [place] MCV (RBC) [Entitic vol] 78.3 fL Low 79.0-98.0 [facility] Comment on above: Performed By: #### P HOS3, BMP3, MG3, HEMDF, FERR3, FEIBC, LFT3 ####[address] Monocytes (Bld) [#/Vol] 0.7 10*3/uL Normal 0.0-0.8 [facility] Comment on above: Performed By: #### P HOS3, BMP3, MG3, HEMDF, FERR3, FEIBC, LFT3 ####[address] [place], [place] Monocytes/100 WBC (Bld) 11.1 % High 2.0-10.0 [facility] Comment on above: Performed By: #### P HOS3, BMP3, MG3, HEMDF, FERR3, FEIBC, LFT3 ####[address] Platelet mean volume (Bld) [Entitic vol] 7.1 fL Low 7.4-10.4 [facility] Comment on above: Performed By: #### P HOS3, BMP3, MG3, HEMDF, FERR3, FEIBC, LFT3 ####[address] Platelets (Bld) [#/Vol] 342 10*3/uL Normal 140-440 [facility] Comment on above: Performed By: #### P HOS3, BMP3, MG3, HEMDF, FERR3, FEIBC, LFT3 ####[address] RBC (Bld) [#/Vol] 4.50 10*6/uL Normal 3.80-5.20 [facility] Comment on above: Performed By: #### P HOS3, BMP3, MG3, HEMDF, FERR3, FEIBC, LFT3 ####[address] WBC (Bld) [#/Vol] 6.3 10*3/uL Normal 3.6-10.7 [facility] Comment on above: Performed By: #### P HOS3, BMP3, MG3, HEMDF, FERR3, FEIBC, LFT3 ####[address] Hepatic Functionon 1 ALP [Catalytic activity/Vol] 60 U/L Normal 38-126 [facility] Comment on above: Performed By: #### P HOS3, BMP3, MG3, HEMDF, FERR3, FEIBC, LFT3 ####[address] ALT [Catalytic activity/Vol] 11 U/L Normal 0-34 [facility] Comment on above: Result Comment: The ALT test is performed by an updated assay method.Please note that the reference intervals have beenchanged and are now sex specific. Performed By: #### P HOS3, BMP3, MG3, HEMDF, FERR3, FEIBC, LFT3 ####[address] AST [Catalytic activity/Vol] 19 U/L Normal 15-46 [facility] Comment on above: Performed By: #### P HOS3, BMP3, MG3, HEMDF, FERR3, FEIBC, LFT3 ####[address] [place] [address] Bilirubin [Mass/Vol] 0.8 mg/dL Normal 0.2-1.3 [facility] Comment on above: Performed By: #### P HOS3, BMP3, MG3, HEMDF, FERR3, FEIBC, LFT3 ####[address] [place] [address] Bilirubin.indirect [Mass/Vol] 0.0 mg/dL Normal 0.0-0.3 [facility] Comment on above: Performed By: #### P HOS3, BMP3, MG3, HEMDF, FERR3, FEIBC, LFT3 ####[address] [place], [place] Protein [Mass/Vol] 8.3 g/dL High 6.3-8.2 [facility] Comment on above: Performed By: #### P HOS3, BMP3, MG3, HEMDF, FERR3, FEIBC, LFT3 ####[address] [place], [place] Albumin [Mass/Vol] 4.6 g/dL Normal 3.5-5.0 [facility] Comment on above: Performed By: #### P HOS3, BMP3, MG3, HEMDF, FERR3, FEIBC, LFT3 ####[address] [place], [place] Hepatic Function PanelOrdere d By: Go Main on 03-01-2021 Albumin [Mass/Vol] 4.6 g/dL 3.5 - 5.0 g/dL [facility] Work Phone: ALP (Bld) [Catalytic activity/Vol] 60 U/L 38 - 126 U/L [facility] Work Phone: ALT [Catalytic activity/Vol] 11 U/L 0 - 34 U/L [facility] Work Phone: AST [Catalytic activity/Vol] 19 U/L 15 - 46 U/L [facility] Work Phone: Bilirubin [Mass/Vol] 0.8 mg/dL 0.2 - 1 .3 mg/dL [facility] Work Phone: Bilirubin.indirect [Mass/Vol] 0.0 mg/dL 0.0 - 0.3 mg/dL [facility] Work Phone: Free PSA/Total PSA [Mass fraction] 8.3 g/dL High 6.3 - 8.2 g/dL [facility] Work Phone: Iron AND TIBCon 03-01-2021 Saturation 16 % Normal 15-50 [facility] Comment on above: Performed By: #### P HOS3, BMP3, MG3, HEMDF, FERR3, FEIBC, LFT3 ####[facility] [address] [place] [address] Total Iron Binding Cap. 366 ug/dL Normal 261-497 [facility] Comment on above: Performed By: #### P HOS3, BMP3, MG3, HEMDF, FERR3, FEIBC, LFT3 ####[facility] [address] [place] [address] Iron, Total 59 ug/dL Normal 37-170 [facility] Comment on above: Result Comment: Slig htly hemolysed, interpret with caution. Performed By: #### P HOS3, BMP3, MG3, HEMDF, FERR3, FEIBC, LFT3 ####[facility] [address] [place] [address] Iron and TIBCOrdered By: Bogdan Long on 03-01-2021 Iron [Mass/Vol] 59 ug/dL 37 - 170 ug/dL [facility] Work Phone: Sat 16 % 15 - 50 % [facility] Work Phone: [phone] TIBC 366 ug/dL 261 - 497 ug/dL [facility] Work Phone: [phone] [facility] Work Phone: [phone] [facility] Work Phone: [phone] Magnesiumon 03-01-2021 Magnesium [Mass/Vol] 1.9 mg/dL Normal 1.6-2.3 [facility] Comment on above: Performed By: #### P HOS3, BMP3, MG3, HEMDF, FERR3, FEIBC, LFT3 ####[facility] [address] [place] [address] MagnesiumOrdered By: Go Main on 03-01-2021 Magnesium [Mass/Vol] 1.9 mg/dL 1.6 - 2 .3 mg/dL [facility] Work Phone: No Panel InformationOrdered By: Go Main on 03-01-2021 Interpretation and review of laboratory results Abnormal [facility] Work Phone: [phone] [facility] Work Phone: [phone] [facility] Work Phone: [phone] Phosphoruson 03-01-2021 Phosphate [Mass/Vol] 4.1 mg/dL Normal 2.5-4.5 [facility] Comment on above: Performed By: #### P HOS3, BMP3, MG3, HEMDF, FERR3, FEIBC, LFT3 ####[facility] [id number] [place] [address] PhosphorusOrdered By: Dallin Main on 03-01-2021 Phosphate [Mass/Vol] 4.1 mg/dL 2.5 - 4 .5 mg/dL [facility] Work Phone: [phone] Surgical PathologyOrdered By : Sierra Alvarado on 03-01-2021 Surgical Pathology Report SEE BELOW [facility] Work Phone: [phone] [facility] Work Phone: [phone] [facility] Work Phone: [phone] TTG, IgGOrdered By: Heriberto mensah on 03-01-2021 TTG, IgG 2 U/mL Normal 0-5 [facility] Work Phone: Comment on above: Result Comment: INTE RPRETIVE INFORMATION: Tissue Transglutaminase Ab, IgG5 U/mL or less: ......... Negative6-9 U/mL: ............... Weak Actirypp34 U/mL or greater: ..... PositiveThe tTG IgG assay may aid in the diagnosis of gluten-sensitivityenteropathy (i.e., celiac disease, dermatitis herpetiformis) intTG IgA negative patients with confirmed IgA deficiency. Anegative tTG IgG test alone does not rule out gluten-sensitiveenteropathy.Performed By: [email or web address] [place] [id number] Director: Kareen Betancourt MD Performed By: #### T TGG ####The performing lab is in the report. Tissue Transglutaminase, IgG Ordered By: Heriberto Rowley on 03-01-2021 [facility] Work Phone: Basic Metabolic Panelon 02-06 Calcium [Mass/Vol] 8.9 mg/dL Normal 8.4-10.4 [facility] Comment on above: Performed By: #### L FT3, HEMDF, PHOS3, MG3, BMP3 ####[facility] [address] [place], [place] Anion gap [Moles/Vol] 8 mmol/L Normal 3-13 [facility] Comment on above: Performed By: #### L FT3, HEMDF, PHOS3, MG3, BMP3 ####[facility] [address] [place] [address] CO2 [Moles/Vol] 25 mmol/L Normal 22-30 [facility] Comment on above: Performed By: #### L FT3, HEMDF, PHOS3, MG3, BMP3 ####[facility] [id number] [place], [place] Creatinine [Mass/Vol] 0.50 mg/dL Low 0.52-1.25 [facility] Comment on above: Performed By: #### L FT3, HEMDF, PHOS3, MG3, BMP3 ####[facility] [id number] [place] [address] eGFR OTHER > 90.0 Normal >60 [facility] Comment on above: Result Comment: KDIG O guidelines provide the following GFR categories:Stage GFR(ml/min/1.73 m2) TermsG1 >=90 Normal or highG2 60-89 Mildly decreased*G3a 45-59 Mildly to moderately heijfxxczE2x 30-44 Moderately to severely decreasedG4 15-29 Severely decreasedG5 <15 Kidney failure*Relative to young adult level.In the absence of evidence of kidney damage, neither GFRcategory G1 nor G2 fulfill the criteria for CKD.The CKD-EPI equation is validated in individuals 18 yearsof age and older. Currently the best equation forestimating glomerular filtration rate (GFR) from serumcreatinine in children is the Bedside Boyer equation.It is less accurate in patients with extremes of musclemass, restriction of dietary protein, ingestion of creatine,extra-renal metabolism of creatinine, or treatment withmedications that affect renal tubular creatinine secretion. Performed By: #### L FT3, HEMDF, PHOS3, MG3, BMP3 ####[address] [place], [place] GFR/1.73 sq M.predicted among blacks MDRD (S/P/Bld) [Vol rate/Area] mL/min/{1.73_m2} Normal >60 [facility] Comment on above: Performed By: #### L FT3, HEMDF, PHOS3, MG3, BMP3 ####[address] [place], [place] Glucose [Mass/Vol] 120 mg/dL High 70-100 [facility] Comment on above: Performed By: #### L FT3, HEMDF, PHOS3, MG3, BMP3 ####[address] [place], [place] Urea nitrogen [Mass/Vol] 3 mg/dL Low 7-20 [facility] Comment on above: Performed By: #### L FT3, HEMDF, PHOS3, MG3, BMP3 ####[address] [place], [place] Potassium [Moles/Vol] 3.3 mmol/L Low 3.5-5.1 [facility] Comment on above: Performed By: #### L FT3, HEMDF, PHOS3, MG3, BMP3 ####[address] [place], [place] Sodium [Moles/Vol] 134 mmol/L Low 135-145 [facility] Comment on above: Performed By: #### L FT3, HEMDF, PHOS3, MG3, BMP3 ####[facility] [address] [place] [address] Chloride [Moles/Vol] 101 mmol/L Normal 98-107 [facility] Comment on above: Performed By: #### L FT3, HEMDF, PHOS3, MG3, BMP3 ####[facility] [id number] [place] [address] Basic Metabolic PanelOrdered By: Go Main on 02-28-2021 Anion gap [Moles/Vol] 8 mmol/L 3 - 13 mmol/L [facility] Work Phone: [phone] Calcium [Mass/Vol] 8.9 mg/dL 8.4 - 10. 4 mg/dL [facility] Work Phone: [phone] Chloride [Moles/Vol] 101 mmol/L 98 - 10 7 mmol/L [facility] Work Phone: [phone] CO2 [Moles/Vol] 25 mmol/L 22 - 30 mmol/L [facility] Work Phone: [phone] Creatinine [Mass/Vol] 0.5 mg/dL Low 0.52 - 1.25 mg/dL [facility] Work Phone: [phone] EGFR IF NonAfrican Djiboutian >90.0 >60 mL/min [facility] Work Phone: [phone] GFR/1.73 sq M.predicted among blacks MDRD (S/P/Bld) [Vol rate/Area] mL/min/{1.73_m2} >60 mL/min [facility] Work Phone: [phone] Glucose [Mass/Vol] 120 mg/dL High 70 - 100 mg/dL [facility] Work Phone: [phone] Interpretation and review of laboratory results Abnormal [facility] Work Phone: [phone] Potassium [Moles/Vol] 3.3 mmol/L Low 3.5 - 5.1 mmol/L [facility] Work Phone: [phone] Sodium [Moles/Vol] 134 mmol/L Low 135 - 145 mmol/L [facility] Work Phone: [phone] Urea nitrogen (BldV) [Mass/Vol] 3 mg/dL Low 7 - 20 mg/dL [facility] Work Phone: [phone] CBC WITH AUTO DIFFERENTIALOr dered By: Go Main on 02-28-2021 Absolute Baso # 0.1 10*3/uL 0.0 - 0.2 10*3/uL [facility] Work Phone: [phone] Absolute Eos # 0.0 10*3/uL 0.0 - 0.5 10*3/uL [facility] Work Phone: [phone] Absolute Lymph # 1.0 10*3/uL 1.0 - 4.3 10*3/uL [facility] Work Phone: [phone] Absolute [place] # 0.5 10*3/uL 0.0 - 0.8 10*3/uL [facility] Work Phone: [phone] Absolute Neut # 4.1 10*3/uL 1.8 - 7.0 10*3/uL [facility] Work Phone: [phone] Basophils/100 WBC (Bld) 0.9 % 0.0 - 2.0 % [facility] Work Phone: [phone] Eosinophils/100 WBC (Bld) 0.9 % Low 1.0 - 6.0 % [facility] Work Phone: [phone] Granulocytes/100 WBC (Bld) 72.3 % 40.0 - 80.0 % [facility] Work Phone: [phone] Hematocrit (Bld) [Volume fraction] 32.6 % Low 35.0 - 47.0 % [facility] Work Phone: [phone] Hemoglobin.gastrointesti nal spec 1 Ql (Stl) 10.8 g/dL Low 11.7 - 16.0 g/dL [facility] Work Phone: [phone] Interpretation and review of laboratory results Abnormal [facility] Work Phone: [phone] Lymphocytes/100 WBC (Bld) 16.9 % Low 20.0 - 40.0 % [facility] Work Phone: [phone] MCH (RBC) [Entitic mass] 26.1 pg 26. 0 - 34.0 pg [facility] Work Phone: [phone] MCHC (RBC) [Mass/Vol] 33.2 % 32.0 - 36.0 % [facility] Work Phone: [phone] MCV (RBC) [Entitic vol] 78.7 fL Low 79.0 - 98.0 fL [facility] Work Phone: [phone] Monocytes/100 WBC (Bld) 9.0 % 2.0 - 10.0 % [facility] Work Phone: [phone] Platelet distribution width (Bld) [Ratio] 14.6 % High 11.5 - 14.5 % [facility] Work Phone: [phone] Platelet mean volume (Bld) [Entitic vol] 7.0 fL Low 7.4 - 10.4 fL [facility] Work Phone: [phone] Platelets (Bld) [#/Vol] 331 10*3/uL 140 - 440 10*3/uL [facility] Work Phone: [phone] RBC (Bld) [#/Vol] 4.14 10*6/uL 3.80 - 5.20 10*6/uL [facility] Work Phone: [phone] WBC (Bld) [#/Vol] 5.7 10*3/uL 3.6 - 10.7 10*3/uL [facility] Work Phone: [phone] [facility] Work Phone: [phone] [facility] Work Phone: [phone] EKG 12 LeadOrdered By: Juanjose Godinez on 02-28-2021 [facility] Work Phone: [phone] [facility] Work Phone: [phone] [facility] Work Phone: [phone] HM ENDOSCOPY REPORTOrdered B y: 3m Scanning on 02-28-2021 [facility] Work Phone: [phone] Hemogram w/ Autodiffon 02-28 Abs Baso Cnt 0.1 10*3/uL Normal 0.0-0.2 [facility] Comment on above: Performed By: #### L FT3, HEMDF, PHOS3, MG3, BMP3 ####[employer] [address] [place] [address] Abs Neutrophile Cnt 4.1 10*3/uL Normal 1.8-7.0 [facility] Comment on above: Performed By: #### L FT3, HEMDF, PHOS3, MG3, BMP3 ####[address] [place], [place] Basophils/100 WBC (Bld) 0.9 % Normal 0.0-2.0 [facility] Comment on above: Performed By: #### L FT3, HEMDF, PHOS3, MG3, BMP3 ####[address] Eosinophils (Bld) [#/Vol] 0.0 10*3/uL Normal 0.0-0.5 [facility] Comment on above: Performed By: #### L FT3, HEMDF, PHOS3, MG3, BMP3 ####[address] Eosinophils/100 WBC (Bld) 0.9 % Low 1.0-6.0 [facility] Comment on above: Performed By: #### L FT3, HEMDF, PHOS3, MG3, BMP3 ####[address] Erythrocyte distribution width (RBC) [Ratio] 14.6 % High 11.5-14.5 [facility] Comment on above: Performed By: #### L FT3, HEMDF, PHOS3, MG3, BMP3 ####[address] Granulocytes/100 WBC (Bld) 72.3 % Normal 40.0-80.0 [facility] Comment on above: Performed By: #### L FT3, HEMDF, PHOS3, MG3, BMP3 ####[address] Hematocrit (Bld) [Volume fraction] 32.6 % Low 35.0-47.0 [facility] Comment on above: Performed By: #### L FT3, HEMDF, PHOS3, MG3, BMP3 ####[address] Hemoglobin (Bld) [Mass/Vol] 10.8 g/dL Low 11.7-16.0 [facility] Comment on above: Performed By: #### L FT3, HEMDF, PHOS3, MG3, BMP3 ####[address] [place], [place] Lymphocytes (Bld) [#/Vol] 1.0 10*3/uL Normal 1.0-4.3 [facility] Comment on above: Performed By: #### L FT3, HEMDF, PHOS3, MG3, BMP3 ####[address] Lymphocytes/100 WBC (Bld) 16.9 % Low 20.0-40.0 [facility] Comment on above: Performed By: #### L FT3, HEMDF, PHOS3, MG3, BMP3 ####[address] MCH (RBC) [Entitic mass] 26.1 pg Normal 26.0-34.0 [facility] Comment on above: Performed By: #### L FT3, HEMDF, PHOS3, MG3, BMP3 ####[address] MCHC 33.2 % Normal 32.0-36.0 [facility] Comment on above: Performed By: #### L FT3, HEMDF, PHOS3, MG3, BMP3 ####[address] MCV (RBC) [Entitic vol] 78.7 fL Low 79.0-98.0 [facility] Comment on above: Performed By: #### L FT3, HEMDF, PHOS3, MG3, BMP3 ####[address] Monocytes (Bld) [#/Vol] 0.5 10*3/uL Normal 0.0-0.8 [facility] Comment on above: Performed By: #### L FT3, HEMDF, PHOS3, MG3, BMP3 ####[address] [facility] [place] Monocytes/100 WBC (Bld) 9.0 % Normal 2.0-10.0 [facility] Comment on above: Performed By: #### L FT3, HEMDF, PHOS3, MG3, BMP3 ####[address] [place] Platelet mean volume (Bld) [Entitic vol] 7.0 fL Low 7.4-10.4 [facility] Comment on above: Performed By: #### L FT3, HEMDF, PHOS3, MG3, BMP3 ####[address] [place] Platelets (Bld) [#/Vol] 331 10*3/uL Normal 140-440 [facility] Comment on above: Performed By: #### L FT3, HEMDF, PHOS3, MG3, BMP3 ####[address] [place] RBC (Bld) [#/Vol] 4.14 10*6/uL Normal 3.80-5.20 [facility] Comment on above: Performed By: #### L FT3, HEMDF, PHOS3, MG3, BMP3 ####[address] [place] WBC (Bld) [#/Vol] 5.7 10*3/uL Normal 3.6-10.7 [facility] Comment on above: Performed By: #### L FT3, HEMDF, PHOS3, MG3, BMP3 ####[address] [facility] [place] Hepatic Functionon 1 ALT [Catalytic activity/Vol] 12 U/L Normal 0-34 [facility] Comment on above: Result Comment: The ALT test is performed by an updated assay method.Please note that the reference intervals have beenchanged and are now sex specific. Performed By: #### L FT3, HEMDF, PHOS3, MG3, BMP3 ####[address] [place] ALP [Catalytic activity/Vol] 51 U/L Normal 38-126 [facility] Comment on above: Performed By: #### L FT3, HEMDF, PHOS3, MG3, BMP3 ####[address] [facility] [place] AST [Catalytic activity/Vol] 29 U/L Normal 15-46 [facility] Comment on above: Performed By: #### L FT3, HEMDF, PHOS3, MG3, BMP3 ####[address] [facility] [place] Bilirubin [Mass/Vol] 0.7 mg/dL Normal 0.2-1.3 [facility] Comment on above: Performed By: #### L FT3, HEMDF, PHOS3, MG3, BMP3 ####[address] [place] Bilirubin.indirect [Mass/Vol] 0.0 mg/dL Normal 0.0-0.3 [facility] Comment on above: Performed By: #### L FT3, HEMDF, PHOS3, MG3, BMP3 ####[address] [place], [place] Protein [Mass/Vol] 7.7 g/dL Normal 6.3-8.2 [facility] Comment on above: Performed By: #### L FT3, HEMDF, PHOS3, MG3, BMP3 ####[address] [facility] Albumin [Mass/Vol] 4.3 g/dL Normal 3.5-5.0 [facility] Comment on above: Performed By: #### L FT3, HEMDF, PHOS3, MG3, BMP3 ####[address] [facility] [place] Hepatic Function PanelOrdere d By: Go Main on 02-28-2021 Albumin [Mass/Vol] 4.3 g/dL 3.5 - 5.0 g/dL [facility] Work Phone: ALP (Bld) [Catalytic activity/Vol] 51 U/L 38 - 126 U/L [facility] Work Phone: ALT [Catalytic activity/Vol] 12 U/L 0 - 34 U/L [facility] Work Phone: AST [Catalytic activity/Vol] 29 U/L 15 - 46 U/L [facility] Work Phone: [phone] Bilirubin [Mass/Vol] 0.7 mg/dL 0.2 - 1 .3 mg/dL [facility] Work Phone: Bilirubin.indirect [Mass/Vol] 0.0 mg/dL 0.0 - 0.3 mg/dL [facility] Work Phone: Free PSA/Total PSA [Mass fraction] 7.7 g/dL 6.3 - 8.2 g/dL [facility] Work Phone: Magnesiumon 02-28-2021 Magnesium [Mass/Vol] 1.9 mg/dL Normal 1.6-2.3 [facility] Comment on above: Performed By: #### L FT3, HEMDF, PHOS3, MG3, BMP3 ####[facility] [address] [place] [address] MagnesiumOrdered By: Go Main on 02-28-2021 Magnesium [Mass/Vol] 1.9 mg/dL 1.6 - 2 .3 mg/dL [facility] Work Phone: No Panel InformationOrdered By: Go Main on 02-28-2021 [facility] Work Phone: [facility] Work Phone: Op Noteon 02-28-2021 Op Note Normal [facility] Phosphoruson 02-28-2021 Phosphate [Mass/Vol] 3.3 mg/dL Normal 2.5-4.5 [facility] Comment on above: Performed By: #### L FT3, HEMDF, PHOS3, MG3, BMP3 ####[facility] [id number] [place] [address] PhosphorusOrdered By: Dallin Main on 02-28-2021 Phosphate [Mass/Vol] 3.3 mg/dL 2.5 - 4 .5 mg/dL [facility] Work Phone: Surgical Pathologyon 021 Surgical Pathology Normal [facility] Add On Lab TestOrdered By: Rashid Greenwood on 02-27-2021 Add On Rejected [facility] Work Phone: [facility] Work Phone: [facility] Work Phone: Add On Lab TestOrdered By: Mando Sanchez on 02-27-2021 Add On Accepted [facility] Work Phone: [facility] Work Phone: [facility] Work Phone: Add On Lab TestOrdered By: Farrukh Lozada on 02-27-2021 Add On Accepted [facility] Work Phone: [facility] Work Phone: [facility] Work Phone: [phone] Add on test from HISon 02-27 Add on test from HIS Rejected Normal [facility] Comment on above: Performed By: #### A DDON ####[facility] [id number] [place], [place] Add on test from HIS Accepted Normal [facility] Comment on above: Result Comment: Spec imen available & acceptable for analysis. Performed By: #### A DDON ####[facility] [address] [place], [place] Add on test from HIS Accepted Normal [facility] Comment on above: Result Comment: Spec imen available & acceptable for analysis. Performed By: #### A DDON, NAURR, KRDM3, CLURR ####[facility] [address] [place], [place] Basic Metabolic Panelon 02-06 Calcium [Mass/Vol] 9.5 mg/dL Normal 8.4-10.4 [facility] Comment on above: Performed By: #### H A1C2, BMP3, LFT3, HEMDF, TSH5, TROPN, MG3, BHB, PHOS3 ####[id number] [place], [place] Glucose [Mass/Vol] 80 mg/dL Normal 70-100 [facility] Comment on above: Performed By: #### H A1C2, BMP3, LFT3, HEMDF, TSH5, TROPN, MG3, BHB, PHOS3 ####[id number] [place], [place] Anion gap [Moles/Vol] 14 mmol/L High 3-13 [facility] Comment on above: Performed By: #### H A1C2, BMP3, LFT3, HEMDF, TSH5, TROPN, MG3, BHB, PHOS3 ####[id number] [place], [place] CO2 [Moles/Vol] 19 mmol/L Low 22-30 [facility] Comment on above: Performed By: #### H A1C2, BMP3, LFT3, HEMDF, TSH5, TROPN, MG3, BHB, PHOS3 ####[id number] [place], [place] Creatinine [Mass/Vol] 0.58 mg/dL Normal 0.52-1.25 [facility] Comment on above: Performed By: #### H A1C2, BMP3, LFT3, HEMDF, TSH5, TROPN, MG3, BHB, PHOS3 ####[id number] . [place] eGFR OTHER > 90.0 Normal >60 [facility] Comment on above: Result Comment: KDIG O guidelines provide the following GFR categories:Stage GFR(ml/min/1.73 m2) TermsG1 >=90 Normal or highG2 60-89 Mildly decreased*G3a 45-59 Mildly to moderately [id number] 30-44 Moderately to severely decreasedG4 15-29 Severely decreasedG5 <15 Kidney failure*Relative to young adult level.In the absence of evidence of kidney damage, neither GFRcategory G1 nor G2 fulfill the criteria for CKD.The CKD-EPI equation is validated in individuals 18 yearsof age and older. Currently the best equation forestimating glomerular filtration rate (GFR) from serumcreatinine in children is the Bedside Boyer equation.It is less accurate in patients with extremes of musclemass, restriction of dietary protein, ingestion of creatine,extra-renal metabolism of creatinine, or treatment withmedications that affect renal tubular creatinine secretion. Performed By: #### H A1C2, BMP3, LFT3, HEMDF, TSH5, TROPN, MG3, BHB, PHOS3 ####[address] [place], [place] GFR/1.73 sq M.predicted among blacks MDRD (S/P/Bld) [Vol rate/Area] mL/min/{1.73_m2} Normal >60 [facility] Comment on above: Performed By: #### H A1C2, BMP3, LFT3, HEMDF, TSH5, TROPN, MG3, BHB, PHOS3 ####[address] [place], [place] Urea nitrogen [Mass/Vol] 7 mg/dL Normal 7-20 [facility] Comment on above: Performed By: #### H A1C2, BMP3, LFT3, HEMDF, TSH5, TROPN, MG3, BHB, PHOS3 ####[address] [place], [place] Chloride [Moles/Vol] 102 mmol/L Normal 98-107 [facility] Comment on above: Performed By: #### H A1C2, BMP3, LFT3, HEMDF, TSH5, TROPN, MG3, BHB, PHOS3 ####[address] [place], [place] Potassium [Moles/Vol] 3.8 mmol/L Normal 3.5-5.1 [facility] Comment on above: Performed By: #### H A1C2, BMP3, LFT3, HEMDF, TSH5, TROPN, MG3, BHB, PHOS3 ####[address] [place], [place] Sodium [Moles/Vol] 136 mmol/L Normal 135-145 [facility] Comment on above: Performed By: #### H A1C2, BMP3, LFT3, HEMDF, TSH5, TROPN, MG3, BHB, PHOS3 ####[facility] [address] [place] [address] Basic Metabolic PanelOrdered By: Go Main on 02-27-2021 Anion gap [Moles/Vol] 14 mmol/L High 3 - 13 mmol/L [facility] Work Phone: [phone] Calcium [Mass/Vol] 9.5 mg/dL 8.4 - 10. 4 mg/dL [facility] Work Phone: [phone] Chloride [Moles/Vol] 102 mmol/L 98 - 10 7 mmol/L [facility] Work Phone: [phone] CO2 [Moles/Vol] 19 mmol/L Low 22 - 30 mmol/L [facility] Work Phone: [phone] Creatinine [Mass/Vol] 0.58 mg/dL 0.52 - 1.25 mg/dL [facility] Work Phone: [phone] EGFR IF NonAfrican Djiboutian >90.0 >60 mL/min [facility] Work Phone: [phone] GFR/1.73 sq M.predicted among blacks MDRD (S/P/Bld) [Vol rate/Area] mL/min/{1.73_m2} >60 mL/min [facility] Work Phone: [phone] Glucose [Mass/Vol] 80 mg/dL 70 - 100 mg/dL [facility] Work Phone: [phone] Potassium [Moles/Vol] 3.8 mmol/L 3.5 - 5.1 mmol/L [facility] Work Phone: [phone] Sodium [Moles/Vol] 136 mmol/L 135 - 145 mmol/L [facility] Work Phone: [phone] Urea nitrogen (BldV) [Mass/Vol] 7 mg/dL 7 - 20 mg/dL [facility] Work Phone: [phone] Beta Hydroxybutyrateon 02-27 Beta Hydroxybutyrate 33.30 mg/dL High 0.20-2.81 [facility] Comment on above: Performed By: #### H A1C2, BMP3, LFT3, HEMDF, TSH5, TROPN, MG3, BHB, PHOS3 ####[facility] [id number] [place] [address] Beta-HydroxybutyrateOrdered By: Go Main on 02-27-2021 Beta-Hydroxybutyrate 33.3 mg/dL High 0.20 - 2.81 mg/dL [facility] Work Phone: Interpretation and review of laboratory results Abnormal [facility] Work Phone: [facility] Work Phone: [facility] Work Phone: CBC WITH AUTO DIFFERENTIALOr dered By: Go Mani on 02-27-2021 Absolute Baso # 0.1 10*3/uL 0.0 - 0.2 10*3/uL [facility] Work Phone: [phone] Absolute Eos # 0.0 10*3/uL 0.0 - 0.5 10*3/uL [facility] Work Phone: 222 Absolute Lymph # 1.4 10*3/uL 1.0 - 4.3 10*3/uL [facility] Work Phone: 222 Absolute [place] # 0.5 10*3/uL 0.0 - 0.8 10*3/uL [facility] Work Phone: 222 Absolute Neut # 6.0 10*3/uL 1.8 - 7.0 10*3/uL [facility] Work Phone: 222 Basophils/100 WBC (Bld) 1.3 % 0.0 - 2.0 % [facility] Work Phone: 222 Eosinophils/100 WBC (Bld) 0.5 % Low 1.0 - 6.0 % [facility] Work Phone: 222 Granulocytes/100 WBC (Bld) 74.2 % 40.0 - 80.0 % [facility] Work Phone: Hematocrit (Bld) [Volume fraction] 33.5 % Low 35.0 - 47.0 % [facility] Work Phone: 222 Hemoglobin.gastrointesti nal spec 1 Ql (Stl) 10.9 g/dL Low 11.7 - 16.0 g/dL [facility] Work Phone: Interpretation and review of laboratory results Abnormal [facility] Work Phone: [phone] Lymphocytes/100 WBC (Bld) 17.9 % Low 20.0 - 40.0 % [facility] Work Phone: 1 MCH (RBC) [Entitic mass] 26.2 pg 26. 0 - 34.0 pg [facility] Work Phone: [phone] MCHC (RBC) [Mass/Vol] 32.6 % 32.0 - 36.0 % [facility] Work Phone: [phone] MCV (RBC) [Entitic vol] 80.4 fL 79.0 - 98.0 fL [facility] Work Phone: [phone] Monocytes/100 WBC (Bld) 6.1 % 2.0 - 10.0 % [facility] Work Phone: Platelet distribution width (Bld) [Ratio] 14.5 % 11.5 - 14.5 % [facility] Work Phone: 222 Platelet mean volume (Bld) [Entitic vol] 7.3 fL Low 7.4 - 10.4 fL [facility] Work Phone: 222 Platelets (Bld) [#/Vol] 372 10*3/uL 140 - 440 10*3/uL [facility] Work Phone: [phone] RBC (Bld) [#/Vol] 4.16 10*6/uL 3.80 - 5.20 10*6/uL [facility] Work Phone: 222 WBC (Bld) [#/Vol] 8.0 10*3/uL 3.6 - 10.7 10*3/uL [facility] Work Phone: [phone] [facility] Work Phone: [phone] [facility] Work Phone: [phone] Cannabinoid, Urine, Screenin g, Critical CareOrdered By: Sherrill Rivero on 02-27-2021 THC Negative [facility] Work Phone: [phone] [facility] Work Phone: [phone] [facility] Work Phone: [phone] Chloride, Random UrineOrdere d By: Aletha Lozada on 02-27-2021 Chloride 143 mmol/L 18 - 209 mmol/L [facility] Work Phone: [phone] Chloride, Ur Randomon 2020 Chloride [Moles/Vol] 143 mmol/L Normal 18-209 [facility] Comment on above: Performed By: #### A DDON, NAURR, KRDM3, CLURR ####[facility] [id number] [place] [address] EKG 12 LeadOrdered By: Chip French on 02-27-2021 [facility] Work Phone: [phone] [facility] Work Phone: [phone] [facility] Work Phone: [phone] Hemoglobin A1Con 02-27-2021 Glucose [Mass/Vol] 103 mg/dL Normal [facility] Comment on above: Performed By: #### H A1C2, BMP3, LFT3, HEMDF, TSH5, TROPN, MG3, BHB, PHOS3 ####[facility] [id number] [place] [address] HbA1c (Bld) [Mass fraction] 5.2 % Normal [facility] Comment on above: Result Comment: Norm al less than 5.7%Prediabetes 5.7% to 6.4%Diabetes 6.5% or higher--HgbA1C levels may not be accurate in patients who haverenal disease, received recent blood transfusions, are anemic,or who have dyshemoglobinemia. Performed By: #### H A1C2, BMP3, LFT3, HEMDF, TSH5, TROPN, MG3, BHB, PHOS3 ####[facility] [id number] [place] [address] Hemoglobin O4RAbcfvlt By: Urvashi Main on 02-27-2021 eAG 103 mg/dL [facility] Work Phone: [phone] HbA1c (Bld) [Mass fraction] 5.2 % [facility] Work Phone: [phone] [facility] Work Phone: [phone] [facility] Work Phone: [phone] Hemogram w/ Autodiffon 02-27 Abs Baso Cnt 0.1 10*3/uL Normal 0.0-0.2 [facility] Comment on above: Performed By: #### H A1C2, BMP3, LFT3, HEMDF, TSH5, TROPN, MG3, BHB, PHOS3 ####[address] Abs Neutrophile Cnt 6.0 10*3/uL Normal 1.8-7.0 [facility] Comment on above: Performed By: #### H A1C2, BMP3, LFT3, HEMDF, TSH5, TROPN, MG3, BHB, PHOS3 ####[address] Basophils/100 WBC (Bld) 1.3 % Normal 0.0-2.0 [facility] Comment on above: Performed By: #### H A1C2, BMP3, LFT3, HEMDF, TSH5, TROPN, MG3, BHB, PHOS3 ####[address] Eosinophils (Bld) [#/Vol] 0.0 10*3/uL Normal 0.0-0.5 [facility] Comment on above: Performed By: #### H A1C2, BMP3, LFT3, HEMDF, TSH5, TROPN, MG3, BHB, PHOS3 ####[address] Eosinophils/100 WBC (Bld) 0.5 % Low 1.0-6.0 [facility] Comment on above: Performed By: #### H A1C2, BMP3, LFT3, HEMDF, TSH5, TROPN, MG3, BHB, PHOS3 ####[address] Erythrocyte distribution width (RBC) [Ratio] 14.5 % Normal 11.5-14.5 [facility] Comment on above: Performed By: #### H A1C2, BMP3, LFT3, HEMDF, TSH5, TROPN, MG3, BHB, PHOS3 ####[address] Granulocytes/100 WBC (Bld) 74.2 % Normal 40.0-80.0 [facility] Comment on above: Performed By: #### H A1C2, BMP3, LFT3, HEMDF, TSH5, TROPN, MG3, BHB, PHOS3 ####[address] Hematocrit (Bld) [Volume fraction] 33.5 % Low 35.0-47.0 [facility] Comment on above: Performed By: #### H A1C2, BMP3, LFT3, HEMDF, TSH5, TROPN, MG3, BHB, PHOS3 ####[address] Hemoglobin (Bld) [Mass/Vol] 10.9 g/dL Low 11.7-16.0 [facility] Comment on above: Performed By: #### H A1C2, BMP3, LFT3, HEMDF, TSH5, TROPN, MG3, BHB, PHOS3 ####[address] Lymphocytes (Bld) [#/Vol] 1.4 10*3/uL Normal 1.0-4.3 [facility] Comment on above: Performed By: #### H A1C2, BMP3, LFT3, HEMDF, TSH5, TROPN, MG3, BHB, PHOS3 ####[address] Lymphocytes/100 WBC (Bld) 17.9 % Low 20.0-40.0 [facility] Comment on above: Performed By: #### H A1C2, BMP3, LFT3, HEMDF, TSH5, TROPN, MG3, BHB, PHOS3 ####[address] MCH (RBC) [Entitic mass] 26.2 pg Normal 26.0-34.0 [facility] Comment on above: Performed By: #### H A1C2, BMP3, LFT3, HEMDF, TSH5, TROPN, MG3, BHB, PHOS3 ####[address] [place], [place] MCHC 32.6 % Normal 32.0-36.0 [facility] Comment on above: Performed By: #### H A1C2, BMP3, LFT3, HEMDF, TSH5, TROPN, MG3, BHB, PHOS3 ####[address] MCV (RBC) [Entitic vol] 80.4 fL Normal 79.0-98.0 [facility] Comment on above: Performed By: #### H A1C2, BMP3, LFT3, HEMDF, TSH5, TROPN, MG3, BHB, PHOS3 ####[address] [place], [place] Monocytes (Bld) [#/Vol] 0.5 10*3/uL Normal 0.0-0.8 [facility] Comment on above: Performed By: #### H A1C2, BMP3, LFT3, HEMDF, TSH5, TROPN, MG3, BHB, PHOS3 ####[address] [place], [place] Monocytes/100 WBC (Bld) 6.1 % Normal 2.0-10.0 [facility] Comment on above: Performed By: #### H A1C2, BMP3, LFT3, HEMDF, TSH5, TROPN, MG3, BHB, PHOS3 ####[address] Platelet mean volume (Bld) [Entitic vol] 7.3 fL Low 7.4-10.4 [facility] Comment on above: Performed By: #### H A1C2, BMP3, LFT3, HEMDF, TSH5, TROPN, MG3, BHB, PHOS3 ####[address] Platelets (Bld) [#/Vol] 372 10*3/uL Normal 140-440 [facility] Comment on above: Performed By: #### H A1C2, BMP3, LFT3, HEMDF, TSH5, TROPN, MG3, BHB, PHOS3 ####[address] RBC (Bld) [#/Vol] 4.16 10*6/uL Normal 3.80-5.20 [facility] Comment on above: Performed By: #### H A1C2, BMP3, LFT3, HEMDF, TSH5, TROPN, MG3, BHB, PHOS3 ####[address] WBC (Bld) [#/Vol] 8.0 10*3/uL Normal 3.6-10.7 [facility] Comment on above: Performed By: #### H A1C2, BMP3, LFT3, HEMDF, TSH5, TROPN, MG3, BHB, PHOS3 ####[address] Hepatic Functionon 1 ALP [Catalytic activity/Vol] 55 U/L Normal 38-126 [facility] Comment on above: Performed By: #### H A1C2, BMP3, LFT3, HEMDF, TSH5, TROPN, MG3, BHB, PHOS3 ####[address] [place], [place] ALT [Catalytic activity/Vol] 13 U/L Normal 0-34 [facility] Comment on above: Result Comment: The ALT test is performed by an updated assay method.Please note that the reference intervals have beenchanged and are now sex specific. Performed By: #### H A1C2, BMP3, LFT3, HEMDF, TSH5, TROPN, MG3, BHB, PHOS3 ####[address] AST [Catalytic activity/Vol] 22 U/L Normal 15-46 [facility] Comment on above: Performed By: #### H A1C2, BMP3, LFT3, HEMDF, TSH5, TROPN, MG3, BHB, PHOS3 ####[address] Bilirubin [Mass/Vol] 0.6 mg/dL Normal 0.2-1.3 [facility] Comment on above: Performed By: #### H A1C2, BMP3, LFT3, HEMDF, TSH5, TROPN, MG3, BHB, PHOS3 ####[facility] [place], [place] Bilirubin.indirect [Mass/Vol] 0.0 mg/dL Normal 0.0-0.3 [facility] Comment on above: Performed By: #### H A1C2, BMP3, LFT3, HEMDF, TSH5, TROPN, MG3, BHB, PHOS3 ####[facility] [place], [place] Protein [Mass/Vol] 7.8 g/dL Normal 6.3-8.2 [facility] Comment on above: Performed By: #### H A1C2, BMP3, LFT3, HEMDF, TSH5, TROPN, MG3, BHB, PHOS3 ####[facility] [place], [place] Albumin [Mass/Vol] 4.4 g/dL Normal 3.5-5.0 [facility] Comment on above: Performed By: #### H A1C2, BMP3, LFT3, HEMDF, TSH5, TROPN, MG3, BHB, PHOS3 ####[address] [place], [place] Hepatic Function PanelOrdere d By: Go Main on 02-27-2021 Albumin [Mass/Vol] 4.4 g/dL 3.5 - 5.0 g/dL [facility] Work Phone: ALP (Bld) [Catalytic activity/Vol] 55 U/L 38 - 126 U/L [facility] Work Phone: ALT [Catalytic activity/Vol] 13 U/L 0 - 34 U/L [facility] Work Phone: AST [Catalytic activity/Vol] 22 U/L 15 - 46 U/L [facility] Work Phone: Bilirubin [Mass/Vol] 0.6 mg/dL 0.2 - 1 .3 mg/dL [facility] Work Phone: [phone] Bilirubin.indirect [Mass/Vol] 0.0 mg/dL 0.0 - 0.3 mg/dL [facility] Work Phone: [phone] Free PSA/Total PSA [Mass fraction] 7.8 g/dL 6.3 - 8.2 g/dL [facility] Work Phone: [phone] Magnesiumon 02-27-2021 Magnesium [Mass/Vol] 1.5 mg/dL Low 1.6-2.3 [facility] [address] [facility] Comment on above: Performed By: #### H A1C2, BMP3, LFT3, HEMDF, TSH5, TROPN, MG3, BHB, PHOS3 ####[employer] [place] [address] MagnesiumOrdered By: Go Main on 02-27-2021 Magnesium [Mass/Vol] 1.5 mg/dL Low 1.6 - 2 .3 mg/dL [facility] Work Phone: [phone] No Panel InformationOrdered By: Aletha Lozada on 02-27-2021 [facility] Work Phone: [phone] [facility] Work Phone: [phone] No Panel InformationOrdered By: Go Main on 02-27-2021 Interpretation and review of laboratory results Abnormal [facility] Work Phone: [phone] [facility] Work Phone: [phone] [facility] Work Phone: [phone] Phosphoruson 02-27-2021 Phosphate [Mass/Vol] 3.3 mg/dL Normal 2.5-4.5 [facility] Comment on above: Performed By: #### H A1C2, BMP3, LFT3, HEMDF, TSH5, TROPN, MG3, BHB, PHOS3 ####[employer] [place] [address] PhosphorusOrdered By: Dallin Main on 02-27-2021 Phosphate [Mass/Vol] 3.3 mg/dL 2.5 - 4 .5 mg/dL [facility] Work Phone: Potassium, Ur Randomon 02-27 Potassium [Moles/Vol] 24 mmol/L Normal No Range [facility] Comment on above: Performed By: #### A SANDI SHI KRDM3, CLURR ####[facility] [address] [place] [address] Potassium, Urine, RandomOrde red By: Aletha Lozada on 02-27-2021 POTASSIUM, RANDOM URINE 24 mmol/L No Range S [facility] Work Phone: Sodium, Ur Randomon 02-28-20 21 Sodium [Moles/Vol] 199 mmol/L High 30-90 [facility] Comment on above: Performed By: #### A SANDI SHI, MARIO3, CLURR ####[facility] [id number] [place] [address] Sodium, Urine, RandomOrdered By: Aletha Lozada on 02-27-2021 Interpretation and review of laboratory results Abnormal [facility] Work Phone: [phone] Sodium (U) [Moles/Vol] 199 mmol/L High 30 - 90 mmol/L [facility] Work Phone: THC, Urineon 02-27-2021 THC, Ur Negative Normal [facility] Comment on above: Result Comment: Thre shold= 50 ng/mL Performed By: #### T HC4 ####[facility] [place] [address] TSH without ReflexOrdered By : Go Main on 02-27-2021 TSH Qn 0.589 u[IU]/mL 0.465 - 4.680 u[IU]/mL [facility] Work Phone: [facility] Work Phone: [facility] Work Phone: Thyroid Stim. Hormoneon 02-06 Thyroid Stim. Hormone 0.589 u[IU]/mL Normal 0.46 5-4.68 0 [facility] Comment on above: Performed By: #### H A1C2, BMP3, LFT3, HEMDF, TSH5, TROPN, MG3, BHB, PHOS3 ####[facility] [address] [place], [place] TroponinOrdered By: Go Main on 02-27-2021 Troponin I.cardiac [Mass/Vol] ng/mL 0.000 - 0.034 ng/mL [facility] Work Phone: [facility] Work Phone: [phone] [facility] Work Phone: [phone] Troponin Ion 02-27-2021 Troponin I.cardiac [Mass/Vol] ng/mL Normal 0.000-0.03 4 [facility] Comment on above: Result Comment: . Performed By: #### H A1C2, BMP3, LFT3, HEMDF, TSH5, TROPN, MG3, BHB, PHOS3 ####[facility] [address] [place], [place] Add On Lab TestOrdered By: Tyrone Rivero on 02-26-2021 Add On Rejected [facility] Work Phone: [facility] Work Phone: [phone] [facility] Work Phone: Add on test from HISon 02-26 Add on test from HIS Rejected Normal [facility] Comment on above: Result Comment: Spec imen too old for analysis. Performed By: #### A DDON ####[address] [place], [place] Basic Metabolic Panelon 02-06 Anion gap [Moles/Vol] 11 mmol/L Normal 3-13 [facility] Comment on above: Performed By: #### B MP3, HEMDF, LACT3, LFT3, CRP2, ESR ####[facility] [address] [place], [place] Calcium [Mass/Vol] 9.3 mg/dL Normal 8.4-10.4 [facility] Comment on above: Performed By: #### B MP3, HEMDF, LACT3, LFT3, CRP2, ESR ####[facility] [address] [place], [place] CO2 [Moles/Vol] 23 mmol/L Normal 22-30 [facility] Comment on above: Performed By: #### B MP3, HEMDF, LACT3, LFT3, CRP2, ESR ####[address] [place] [address] Glucose [Mass/Vol] 90 mg/dL Normal 70-100 [facility] Comment on above: Performed By: #### B MP3, HEMDF, LACT3, LFT3, CRP2, ESR ####[address] [place] [address] Urea nitrogen [Mass/Vol] 7 mg/dL Normal 7-20 [facility] Comment on above: Performed By: #### B MP3, HEMDF, LACT3, LFT3, CRP2, ESR ####[address] [place] [address] Creatinine [Mass/Vol] 0.63 mg/dL Normal 0.52-1.25 [facility] Comment on above: Performed By: #### B MP3, HEMDF, LACT3, LFT3, CRP2, ESR ####[address] [place] [address] eGFR OTHER > 90.0 Normal >60 [facility] Comment on above: Result Comment: KDIG O guidelines provide the following GFR categories:Stage GFR(ml/min/1.73 m2) TermsG1 >=90 Normal or highG2 60-89 Mildly decreased*G3a 45-59 Mildly to moderately rohxletcgS9l 30-44 Moderately to severely decreasedG4 15-29 Severely decreasedG5 <15 Kidney failure*Relative to young adult level.In the absence of evidence of kidney damage, neither GFRcategory G1 nor G2 fulfill the criteria for CKD.The CKD-EPI equation is validated in individuals 18 yearsof age and older. Currently the best equation forestimating glomerular filtration rate (GFR) from serumcreatinine in children is the Bedside Boyer equation.It is less accurate in patients with extremes of musclemass, restriction of dietary protein, ingestion of creatine,extra-renal metabolism of creatinine, or treatment withmedications that affect renal tubular creatinine secretion. Performed By: #### B MP3, HEMDF, LACT3, LFT3, CRP2, ESR ####[facility] [place] [address] GFR/1.73 sq M.predicted among blacks MDRD (S/P/Bld) [Vol rate/Area] mL/min/{1.73_m2} Normal >60 [facility] Comment on above: Performed By: #### B MP3, HEMDF, LACT3, LFT3, CRP2, ESR ####[address] [place] [address] Potassium [Moles/Vol] 3.7 mmol/L Normal 3.5-5.1 [facility] Comment on above: Performed By: #### B MP3, HEMDF, LACT3, LFT3, CRP2, ESR ####[facility] [place], [place] Sodium [Moles/Vol] 137 mmol/L Normal 135-145 [facility] Comment on above: Performed By: #### B MP3, HEMDF, LACT3, LFT3, CRP2, ESR ####[address] [place] Chloride [Moles/Vol] 103 mmol/L Normal 98-107 [facility] Comment on above: Performed By: #### B MP3, HEMDF, LACT3, LFT3, CRP2, ESR ####[address] [place] [address] Basic Metabolic PanelOrdered By: Patience Geiger on 02-26-2021 Anion gap [Moles/Vol] 11 mmol/L 3 - 13 mmol/L [facility] Work Phone: Calcium [Mass/Vol] 9.3 mg/dL 8.4 - 10. 4 mg/dL [facility] Work Phone: Chloride [Moles/Vol] 103 mmol/L 98 - 10 7 mmol/L [facility] Work Phone: CO2 [Moles/Vol] 23 mmol/L 22 - 30 mmol/L [facility] Work Phone: Creatinine [Mass/Vol] 0.63 mg/dL 0.52 - 1.25 mg/dL [facility] Work Phone: () [phone] EGFR IF NonAfrican Djiboutian >90.0 >60 mL/min [email or web address] Work Phone: ) 222 GFR/1.73 sq M.predicted among blacks MDRD (S/P/Bld) [Vol rate/Area] mL/min/{1.73_m2} >60 mL/min [email or web address] Work Phone: ) [phone] Glucose [Mass/Vol] 90 mg/dL 70 - 100 mg/dL [facility] Work Phone: ) [phone] Potassium [Moles/Vol] 3.7 mmol/L 3.5 - 5.1 mmol/L [email or web address] Work Phone: ) [phone] Sodium [Moles/Vol] 137 mmol/L 135 - 145 mmol/L [email or web address] Work Phone: ) [phone] Urea nitrogen (BldV) [Mass/Vol] 7 mg/dL 7 - 20 mg/dL [email or web address] Work Phone: [phone] C-Reactive Proteinon 021 CRP [Mass/Vol] mg/L Normal 0.0-6.0 [facility] Comment on above: Result Comment: . Performed By: #### B MP3, HEMDF, LACT3, LFT3, CRP2, ESR ####[employer] [id number] [place] [address] C-Reactive ProteinOrdered By : Patience Geiger on 02-26-2021 CRP [Mass/Vol] mg/L 0.0 - 6.0 mg/L [email or web address] Work Phone: [phone] CBC Auto DifferentialOrdered By: Patience Geiger on 02-26-2021 Absolute Baso # 0.0 10*3/uL 0.0 - 0.2 10*3/uL [email or web address] Work Phone: [phone] Absolute Eos # 0.1 10*3/uL 0.0 - 0.5 10*3/uL [email or web address] Work Phone: [phone] Absolute Lymph # 1.1 10*3/uL 1.0 - 4.3 10*3/uL [email or web address] Work Phone: [phone] Absolute [place] # 0.5 10*3/uL 0.0 - 0.8 10*3/uL [facility] Work Phone: [phone] Absolute Neut # 4.7 10*3/uL 1.8 - 7.0 10*3/uL [facility] Work Phone: [phone] Basophils/100 WBC (Bld) 0.7 % 0.0 - 2.0 % [facility] Work Phone: [phone] Eosinophils/100 WBC (Bld) 0.9 % Low 1.0 - 6.0 % [facility] Work Phone: [phone] Granulocytes/100 WBC (Bld) 74.4 % 40.0 - 80.0 % [facility] Work Phone: [phone] Hematocrit (Bld) [Volume fraction] 30.9 % Low 35.0 - 47.0 % [facility] Work Phone: [phone] Hemoglobin.gastrointesti nal spec 1 Ql (Stl) 10.2 g/dL Low 11.7 - 16.0 g/dL [facility] Work Phone: [phone] Interpretation and review of laboratory results Abnormal [facility] Work Phone: [phone] Lymphocytes/100 WBC (Bld) 16.7 % Low 20.0 - 40.0 % [facility] Work Phone: [phone] MCH (RBC) [Entitic mass] 26.6 pg 26. 0 - 34.0 pg [facility] Work Phone: [phone] MCHC (RBC) [Mass/Vol] 33.0 % 32.0 - 36.0 % [facility] Work Phone: [phone] MCV (RBC) [Entitic vol] 80.5 fL 79.0 - 98.0 fL [facility] Work Phone: [phone] Monocytes/100 WBC (Bld) 7.3 % 2.0 - 10.0 % [facility] Work Phone: [phone] Platelet distribution width (Bld) [Ratio] 14.3 % 11.5 - 14.5 % [facility] Work Phone: [phone] Platelet mean volume (Bld) [Entitic vol] 7.0 fL Low 7.4 - 10.4 fL [facility] Work Phone: [phone] Platelets (Bld) [#/Vol] 359 10*3/uL 140 - 440 10*3/uL [facility] Work Phone: [phone] RBC (Bld) [#/Vol] 3.83 10*6/uL 3.80 - 5.20 10*6/uL [facility] Work Phone: [phone] WBC (Bld) [#/Vol] 6.3 10*3/uL 3.6 - 10.7 10*3/uL [facility] Work Phone: [phone] [facility] Work Phone: [phone] [facility] Work Phone: [phone] CR Abdomen APon 02-26-2021 CR Abdomen AP Normal [facility] [place] WATER SOLUBLE ENEMA W OR WO KUBOrdered By: Aniyah Claros on 02-26-2021 [facility] Work Phone: [phone] [email or web address] Work Phone: [phone] [email or web address] Work Phone: [phone] Hemogram w/ Autodiffon 02-26 Abs Baso Cnt 0.0 10*3/uL Normal 0.0-0.2 [facility] Comment on above: Performed By: #### B MP3, HEMDF, LACT3, LFT3, CRP2, ESR ####[facility] [address] [place] [address] Abs Neutrophile Cnt 4.7 10*3/uL Normal 1.8-7.0 [facility] Comment on above: Performed By: #### B MP3, HEMDF, LACT3, LFT3, CRP2, ESR ####[facility] [address] [place] [address] Basophils/100 WBC (Bld) 0.7 % Normal 0.0-2.0 [facility] Comment on above: Performed By: #### B MP3, HEMDF, LACT3, LFT3, CRP2, ESR ####[facility] [address] [place] [address] Eosinophils (Bld) [#/Vol] 0.1 10*3/uL Normal 0.0-0.5 [facility] Comment on above: Performed By: #### B MP3, HEMDF, LACT3, LFT3, CRP2, ESR ####[address] Eosinophils/100 WBC (Bld) 0.9 % Low 1.0-6.0 [facility] Comment on above: Performed By: #### B MP3, HEMDF, LACT3, LFT3, CRP2, ESR ####[address] Erythrocyte distribution width (RBC) [Ratio] 14.3 % Normal 11.5-14.5 [facility] Comment on above: Performed By: #### B MP3, HEMDF, LACT3, LFT3, CRP2, ESR ####[address] Granulocytes/100 WBC (Bld) 74.4 % Normal 40.0-80.0 [facility] Comment on above: Performed By: #### B MP3, HEMDF, LACT3, LFT3, CRP2, ESR ####[address] [place], [place] Hematocrit (Bld) [Volume fraction] 30.9 % Low 35.0-47.0 [facility] Comment on above: Performed By: #### B MP3, HEMDF, LACT3, LFT3, CRP2, ESR ####[address] Hemoglobin (Bld) [Mass/Vol] 10.2 g/dL Low 11.7-16.0 [facility] Comment on above: Performed By: #### B MP3, HEMDF, LACT3, LFT3, CRP2, ESR ####[address] Lymphocytes (Bld) [#/Vol] 1.1 10*3/uL Normal 1.0-4.3 [facility] Comment on above: Performed By: #### B MP3, HEMDF, LACT3, LFT3, CRP2, ESR ####[address] [place], [place] Lymphocytes/100 WBC (Bld) 16.7 % Low 20.0-40.0 [facility] Comment on above: Performed By: #### B MP3, HEMDF, LACT3, LFT3, CRP2, ESR ####[address] [place], [place] MCH (RBC) [Entitic mass] 26.6 pg Normal 26.0-34.0 [facility] Comment on above: Performed By: #### B MP3, HEMDF, LACT3, LFT3, CRP2, ESR ####[address] [place], [place] MCHC 33.0 % Normal 32.0-36.0 [facility] Comment on above: Performed By: #### B MP3, HEMDF, LACT3, LFT3, CRP2, ESR ####[address] [place], [place] MCV (RBC) [Entitic vol] 80.5 fL Normal 79.0-98.0 [facility] Comment on above: Performed By: #### B MP3, HEMDF, LACT3, LFT3, CRP2, ESR ####[address] [place], [place] Monocytes (Bld) [#/Vol] 0.5 10*3/uL Normal 0.0-0.8 [facility] Comment on above: Performed By: #### B MP3, HEMDF, LACT3, LFT3, CRP2, ESR ####[address] [place], [place] Monocytes/100 WBC (Bld) 7.3 % Normal 2.0-10.0 [facility] Comment on above: Performed By: #### B MP3, HEMDF, LACT3, LFT3, CRP2, ESR ####[address] [place], [place] Platelet mean volume (Bld) [Entitic vol] 7.0 fL Low 7.4-10.4 [facility] Comment on above: Performed By: #### B MP3, HEMDF, LACT3, LFT3, CRP2, ESR ####[address] [place], [place] Platelets (Bld) [#/Vol] 359 10*3/uL Normal 140-440 [facility] Comment on above: Performed By: #### B MP3, HEMDF, LACT3, LFT3, CRP2, ESR ####[address] [place], [place] RBC (Bld) [#/Vol] 3.83 10*6/uL Normal 3.80-5.20 [facility] Comment on above: Performed By: #### B MP3, HEMDF, LACT3, LFT3, CRP2, ESR ####[address] [place] WBC (Bld) [#/Vol] 6.3 10*3/uL Normal 3.6-10.7 [facility] Comment on above: Performed By: #### B MP3, HEMDF, LACT3, LFT3, CRP2, ESR ####[address] [place], [place] Hepatic Functionon 1 ALP [Catalytic activity/Vol] 55 U/L Normal 38-126 [facility] Comment on above: Performed By: #### B MP3, HEMDF, LACT3, LFT3, CRP2, ESR ####[address] [place] ALT [Catalytic activity/Vol] 13 U/L Normal 0-34 [facility] Comment on above: Result Comment: The ALT test is performed by an updated assay method.Please note that the reference intervals have beenchanged and are now sex specific. Performed By: #### B MP3, HEMDF, LACT3, LFT3, CRP2, ESR ####[address] [place], [place] AST [Catalytic activity/Vol] 20 U/L Normal 15-46 [facility] Comment on above: Performed By: #### B MP3, HEMDF, LACT3, LFT3, CRP2, ESR ####[facility] [id number] [place] Bilirubin [Mass/Vol] 0.5 mg/dL Normal 0.2-1.3 [facility] Comment on above: Performed By: #### B MP3, HEMDF, LACT3, LFT3, CRP2, ESR ####[facility] [id number] [place], [place] Bilirubin.indirect [Mass/Vol] 0.0 mg/dL Normal 0.0-0.3 [facility] Comment on above: Performed By: #### B MP3, HEMDF, LACT3, LFT3, CRP2, ESR ####[facility] [id number] [place], [place] Protein [Mass/Vol] 7.4 g/dL Normal 6.3-8.2 [facility] Comment on above: Performed By: #### B MP3, HEMDF, LACT3, LFT3, CRP2, ESR ####[facility] [id number] [place], [place] Albumin [Mass/Vol] 4.0 g/dL Normal 3.5-5.0 [facility] Comment on above: Performed By: #### B MP3, HEMDF, LACT3, LFT3, CRP2, ESR ####[facility] [id number] [place], [place] Hepatic Function PanelOrdere d By: Patience Geiger on 02-26-2021 Albumin [Mass/Vol] 4.0 g/dL 3.5 - 5.0 g/dL [facility] Work Phone: ALP (Bld) [Catalytic activity/Vol] 55 U/L 38 - 126 U/L [facility] Work Phone: ALT [Catalytic activity/Vol] 13 U/L 0 - 34 U/L [facility] Work Phone: AST [Catalytic activity/Vol] 20 U/L 15 - 46 U/L [facility] Work Phone: Bilirubin [Mass/Vol] 0.5 mg/dL 0.2 - 1 .3 mg/dL [facility] Work Phone: Bilirubin.indirect [Mass/Vol] 0.0 mg/dL 0.0 - 0.3 mg/dL [facility] Work Phone: Free PSA/Total PSA [Mass fraction] 7.4 g/dL 6.3 - 8.2 g/dL [facility] Work Phone: Lactic Acidon 02-26-2021 Lactate [Moles/Vol] 0.6 mmol/L Low 0.7-2.0 [facility] Comment on above: Performed By: #### B MP3, HEMDF, LACT3, LFT3, CRP2, ESR ####[address] [place] [address] Lactic Acid, PlasmaOrdered B y: Patience Geiger on 02-26-2021 Interpretation and review of laboratory results Abnormal [facility] Work Phone: Lactate [Moles/Vol] 0.6 mmol/L Low 0.7 - 2. 0 mmol/L [facility] Work Phone: [facility] Work Phone: [phone] [facility] Work Phone: No Panel InformationOrdered By: Patience Geiger on 02-26-2021 [facility]: [facility] Work Phone: RF Therapeutic Gastrografin Enemaon 02-26-2021 RF Therapeutic Gastrografin Enema Normal [facility] Sed Rateon 02-26-2021 Sed Rate 50 mm/h High 0-20 [facility] Comment on above: Performed By: #### B MP3, HEMDF, LACT3, LFT3, CRP2, ESR ####[address] [place] [address] Sedimentation RateOrdered By : Patience Geiger on 02-26-2021 Interpretation and review of laboratory results Abnormal [facility] Work Phone: Sed Rate 50 mm/h High 0 - 20 mm/h [facility] Work Phone: [facility] Work Phone: [facility] Work Phone: XR ABDOMEN (KUB) (SINGLE AP VIEW)Ordered By: Patience Geiger on 02-26-2021 [facility] Work Phone: [facility] Work Phone: [facility] Work Phone: Add On Lab TestOrdered By: Kristy Maldonado on 02-25-2021 Add On Rejected [facility] Work Phone: [facility] Work Phone: [facility] Work Phone: Add On Accepted [facility] Work Phone: [facility] Work Phone: [facility] Work Phone: [phone] Add on test from HISon 02-25 Add on test from HIS Rejected Normal [facility] Comment on above: Result Comment: Isauro ect specimen type not available. Performed By: #### A DDON ####[facility] [address] [place] Add on test from HIS Accepted Normal [facility] Comment on above: Result Comment: Spec imen available & acceptable for analysis. Performed By: #### A DDON ####[employer] [id number] [place] [address] Basic Metabolic Panelon - Calcium [Mass/Vol] 9.3 mg/dL Normal 8.4-10.4 [facility] Comment on above: Performed By: #### B MP3, MG3, LIPA4, HEMDF ####[address] [place] [address] Glucose [Mass/Vol] 100 mg/dL Normal 70-100 [facility] [facility] Comment on above: Performed By: #### B MP3, MG3, LIPA4, HEMDF ####[facility] [place] [place] [address] eGFR OTHER > 90.0 Normal >60 [facility] Comment on above: Result Comment: KDIG O guidelines provide the following GFR categories:Stage GFR(ml/min/1.73 m2) TermsG1 >=90 Normal or highG2 60-89 Mildly decreased*G3a 45-59 Mildly to moderately [id number] 30-44 Moderately to severely decreasedG4 15-29 Severely decreasedG5 <15 Kidney failure*Relative to young adult level.In the absence of evidence of kidney damage, neither GFRcategory G1 nor G2 fulfill the criteria for CKD.The CKD-EPI equation is validated in individuals 18 yearsof age and older. Currently the best equation forestimating glomerular filtration rate (GFR) from serumcreatinine in children is the Bedside Boyer equation.It is less accurate in patients with extremes of musclemass, restriction of dietary protein, ingestion of creatine,extra-renal metabolism of creatinine, or treatment withmedications that affect renal tubular creatinine secretion. Performed By: #### B MP3, MG3, LIPA4, HEMDF ####[address] [place] [address] Urea nitrogen [Mass/Vol] 6 mg/dL Low 7-20 [facility] Comment on above: Performed By: #### B MP3, MG3, LIPA4, HEMDF ####[address] [place] [address] Chloride [Moles/Vol] 101 mmol/L Normal 98-107 [facility] Comment on above: Performed By: #### B MP3, MG3, LIPA4, HEMDF ####[address] [place] [address] Potassium [Moles/Vol] 4.2 mmol/L Normal 3.5-5.1 [facility] Comment on above: Performed By: #### B MP3, MG3, LIPA4, HEMDF ####[address] [place] [address] Sodium [Moles/Vol] 135 mmol/L Normal 135-145 [facility] Comment on above: Performed By: #### B MP3, MG3, LIPA4, HEMDF ####[address] [place] [address] Basic Metabolic PanelOrdered By: Patience Geiger on 02-25-2021 Anion gap [Moles/Vol] 11 mmol/L Normal 3-13 [facility] Work Phone: [phone] Comment on above: Performed By: #### B MP3, MG3, LIPA4, HEMDF ####[address] [place] [address] CO2 [Moles/Vol] 23 mmol/L Normal 22-30 [facility] Work Phone: [phone] Comment on above: Performed By: #### B MP3, MG3, LIPA4, HEMDF ####[address] [place] [address] Creatinine [Mass/Vol] 0.71 mg/dL Normal 0.52-1.25 [facility] Work Phone: [phone] Comment on above: Performed By: #### B MP3, MG3, LIPA4, HEMDF ####[address] [place] [address] GFR/1.73 sq M.predicted among blacks MDRD (S/P/Bld) [Vol rate/Area] mL/min/{1.73_m2} Normal >60 [facility] Work Phone: [phone] Comment on above: Performed By: #### B MP3, MG3, LIPA4, HEMDF ####[address] [place] [address] Calcium [Mass/Vol] 9.3 mg/dL 8.4 - 10. 4 mg/dL [facility] Work Phone: [phone] Chloride [Moles/Vol] 101 mmol/L 98 - 10 7 mmol/L [facility] Work Phone: [phone] EGFR IF NonAfrican Djiboutian >90.0 >60 mL/min [facility] Work Phone: [phone] Glucose [Mass/Vol] 100 mg/dL 70 - 100 mg/dL [facility] Work Phone: [phone] Interpretation and review of laboratory results Abnormal [facility] Work Phone: [phone] Potassium [Moles/Vol] 4.2 mmol/L 3.5 - 5.1 mmol/L [facility] Work Phone: [phone] Sodium [Moles/Vol] 135 mmol/L 135 - 145 mmol/L [facility] Work Phone: [phone] Urea nitrogen (BldV) [Mass/Vol] 6 mg/dL Low 7 - 20 mg/dL [facility] Work Phone: [phone] CBC Auto DifferentialOrdered By: Patience Geiger on 02-25-2021 Absolute Baso # 0.0 10*3/uL 0.0 - 0.2 10*3/uL [facility] Work Phone: [phone] Absolute Eos # 0.0 10*3/uL 0.0 - 0.5 10*3/uL [facility] Work Phone: [phone] Absolute Lymph # 0.6 10*3/uL Low 1.0 - 4.3 10*3/uL [facility] Work Phone: () [phone] Absolute [place] # 0.4 10*3/uL 0.0 - 0.8 10*3/uL [facility] Work Phone: () [phone] Absolute Neut # 10.7 10*3/uL High 1.8 - 7.0 10*3/uL [facility] Work Phone: () [phone] Basophils/100 WBC (Bld) 0.4 % 0.0 - 2.0 % [facility] Work Phone: () [phone] Eosinophils/100 WBC (Bld) 0.2 % Low 1.0 - 6.0 % [facility] Work Phone: ) [phone] Granulocytes/100 WBC (Bld) 90.8 % High 40.0 - 80.0 % [facility] Work Phone: () [phone] Hematocrit (Bld) [Volume fraction] 33.3 % Low 35.0 - 47.0 % [facility] Work Phone: [phone] Hemoglobin.gastrointesti nal spec 1 Ql (Stl) 11.1 g/dL Low 11.7 - 16.0 g/dL [facility] Work Phone: [phone] Interpretation and review of laboratory results Abnormal [facility] Work Phone: () [phone] Lymphocytes/100 WBC (Bld) 5.3 % Low 20.0 - 40.0 % [facility] Work Phone: [phone] MCH (RBC) [Entitic mass] 26.9 pg 26. 0 - 34.0 pg [facility] Work Phone: [phone] MCHC (RBC) [Mass/Vol] 33.5 % 32.0 - 36.0 % [facility] Work Phone: [phone] MCV (RBC) [Entitic vol] 80.1 fL 79.0 - 98.0 fL [facility] Work Phone: [phone] Monocytes/100 WBC (Bld) 3.3 % 2.0 - 10.0 % [email or web address] Work Phone: [phone] Platelet distribution width (Bld) [Ratio] 14.1 % 11.5 - 14.5 % [facility] Work Phone: [phone] Platelet mean volume (Bld) [Entitic vol] 7.0 fL Low 7.4 - 10.4 fL [email or web address] Work Phone: [phone] Platelets (Bld) [#/Vol] 358 10*3/uL 140 - 440 10*3/uL [email or web address] Work Phone: [phone] RBC (Bld) [#/Vol] 4.15 10*6/uL 3.80 - 5.20 10*6/uL [facility] Work Phone: [phone] WBC (Bld) [#/Vol] 11.8 10*3/uL High 3.6 - 10.7 10*3/uL [email or web address] Work Phone: [phone] [facility] Work Phone: [phone] [facility] Work Phone: [phone] Hemogram w/ Autodiffon 02-25 Abs Baso Cnt 0.0 10*3/uL Normal 0.0-0.2 [facility] Comment on above: Performed By: #### B MP3, MG3, LIPA4, HEMDF ####[address] [place] [address] Abs Neutrophile Cnt 10.7 10*3/uL High 1.8-7.0 [facility] Comment on above: Performed By: #### B MP3, MG3, LIPA4, HEMDF ####[address] [place], [place] Basophils/100 WBC (Bld) 0.4 % Normal 0.0-2.0 [facility] Comment on above: Performed By: #### B MP3, MG3, LIPA4, HEMDF ####[address] Eosinophils (Bld) [#/Vol] 0.0 10*3/uL Normal 0.0-0.5 [facility] Comment on above: Performed By: #### B MP3, MG3, LIPA4, HEMDF ####[address] Eosinophils/100 WBC (Bld) 0.2 % Low 1.0-6.0 [facility] Comment on above: Performed By: #### B MP3, MG3, LIPA4, HEMDF ####[address] Erythrocyte distribution width (RBC) [Ratio] 14.1 % Normal 11.5-14.5 [facility] Comment on above: Performed By: #### B MP3, MG3, LIPA4, HEMDF ####[address] Granulocytes/100 WBC (Bld) 90.8 % High 40.0-80.0 [facility] Comment on above: Performed By: #### B MP3, MG3, LIPA4, HEMDF ####[address] Hematocrit (Bld) [Volume fraction] 33.3 % Low 35.0-47.0 [facility] Comment on above: Performed By: #### B MP3, MG3, LIPA4, HEMDF ####[address] Hemoglobin (Bld) [Mass/Vol] 11.1 g/dL Low 11.7-16.0 [facility] Comment on above: Performed By: #### B MP3, MG3, LIPA4, HEMDF ####[address] [place], [place] Lymphocytes (Bld) [#/Vol] 0.6 10*3/uL Low 1.0-4.3 [facility] Comment on above: Performed By: #### B MP3, MG3, LIPA4, HEMDF ####[address] [place], [place] Lymphocytes/100 WBC (Bld) 5.3 % Low 20.0-40.0 [facility] Comment on above: Performed By: #### B MP3, MG3, LIPA4, HEMDF ####[address] MCH (RBC) [Entitic mass] 26.9 pg Normal 26.0-34.0 [facility] Comment on above: Performed By: #### B MP3, MG3, LIPA4, HEMDF ####[address] MCHC 33.5 % Normal 32.0-36.0 [facility] Comment on above: Performed By: #### B MP3, MG3, LIPA4, HEMDF ####[address] MCV (RBC) [Entitic vol] 80.1 fL Normal 79.0-98.0 [facility] Comment on above: Performed By: #### B MP3, MG3, LIPA4, HEMDF ####[address] [place], [place] Monocytes (Bld) [#/Vol] 0.4 10*3/uL Normal 0.0-0.8 [facility] Comment on above: Performed By: #### B MP3, MG3, LIPA4, HEMDF ####[address] [place], [place] Monocytes/100 WBC (Bld) 3.3 % Normal 2.0-10.0 [facility] Comment on above: Performed By: #### B MP3, MG3, LIPA4, HEMDF ####[address] [place] Platelet mean volume (Bld) [Entitic vol] 7.0 fL Low 7.4-10.4 [facility] Comment on above: Performed By: #### B MP3, MG3, LIPA4, HEMDF ####[address] [place], [place] Platelets (Bld) [#/Vol] 358 10*3/uL Normal 140-440 [facility] Comment on above: Performed By: #### B MP3, MG3, LIPA4, HEMDF ####[address] [place] RBC (Bld) [#/Vol] 4.15 10*6/uL Normal 3.80-5.20 [facility] Comment on above: Performed By: #### B MP3, MG3, LIPA4, HEMDF ####[address] [place] WBC (Bld) [#/Vol] 11.8 10*3/uL High 3.6-10.7 [facility] Comment on above: Performed By: #### B MP3, MG3, LIPA4, HEMDF ####[address] [place] Lipaseon 02-25-2021 Lipase [Catalytic activity/Vol] 76 U/L Normal 23-300 [facility] Comment on above: Performed By: #### B MP3, MG3, LIPA4, HEMDF ####[address] [place], [place] LipaseOrdered By: Patience walters on 02-25-2021 Lipase [Catalytic activity/Vol] 76 U/L 23 - 300 U/L [facility] Work Phone: [facility] Work Phone: [facility] Work Phone: Magnesiumon 02-25-2021 Magnesium [Mass/Vol] 1.8 mg/dL Normal 1.6-2.3 [facility] Comment on above: Performed By: #### B MP3, MG3, LIPA4, HEMDF ####[facility] [id number] [place], [place] MagnesiumOrdered By: Meenu Geiger on 02-25-2021 Magnesium [Mass/Vol] 1.8 mg/dL 1.6 - 2 .3 mg/dL [facility] Work Phone: No Panel InformationOrdered By: Patience Geiger on 02-25-2021 [facility] Work Phone: [facility] Work Phone: Basic Metabolic Panelon 02-06 Calcium [Mass/Vol] 9.2 mg/dL Normal 8.4-10.4 [facility] Comment on above: Performed By: #### B MP3M, HEMOG ####[facility] [id number] [place] Anion gap [Moles/Vol] 7 mmol/L Normal 3-13 [facility] Comment on above: Performed By: #### B MP3M, HEMOG ####[facility] [id number] [place], [place] CO2 [Moles/Vol] 26 mmol/L Normal 22-30 [facility] Comment on above: Performed By: #### B MP3M, HEMOG ####[facility] [id number] [place], [place] Creatinine [Mass/Vol] 0.71 mg/dL Normal 0.52-1.25 [facility] Comment on above: Performed By: #### B MP3M, HEMOG ####[facility] [id number] [place], [place] eGFR OTHER > 90.0 Normal >60 [facility] Comment on above: Result Comment: KDIG O guidelines provide the following GFR categories:Stage GFR(ml/min/1.73 m2) TermsG1 >=90 Normal or highG2 60-89 Mildly decreased*G3a 45-59 Mildly to moderately imepwmyirF1o 30-44 Moderately to severely decreasedG4 15-29 Severely decreasedG5 <15 Kidney failure*Relative to young adult level.In the absence of evidence of kidney damage, neither GFRcategory G1 nor G2 fulfill the criteria for CKD.The CKD-EPI equation is validated in individuals 18 yearsof age and older. Currently the best equation forestimating glomerular filtration rate (GFR) from serumcreatinine in children is the Bedside Boyer equation.It is less accurate in patients with extremes of musclemass, restriction of dietary protein, ingestion of creatine,extra-renal metabolism of creatinine, or treatment withmedications that affect renal tubular creatinine secretion. Performed By: #### Rubén MENDENHALL3Peter, HEMOG ####[address] [place] [address] GFR/1.73 sq M.predicted among blacks MDRD (S/P/Bld) [Vol rate/Area] mL/min/{1.73_m2} Normal >60 [facility] Comment on above: Performed By: #### Rubén MENDENHALL3Peter, HEMOG ####[address] [place] Glucose [Mass/Vol] 75 mg/dL Normal 70-100 [facility] Comment on above: Performed By: #### Rubén MENDENHALL3Peter, HEMOG ####[address] [place] Urea nitrogen [Mass/Vol] 4 mg/dL Low 7-20 [facility] Comment on above: Performed By: #### Rubén MENDENHALL3M, HEMOG ####[address] [place] [address] Chloride [Moles/Vol] 105 mmol/L Normal 98-107 [facility] Comment on above: Performed By: #### Rubén MP3M, HEMOG ####[address] [place] [address] Potassium [Moles/Vol] 3.9 mmol/L Normal 3.5-5.1 [facility] Comment on above: Performed By: #### Rubén MP3M, HEMOG ####[address] [place] [address] Sodium [Moles/Vol] 138 mmol/L Normal 135-145 [facility] Comment on above: Performed By: #### B MP3M, HEMOG ####[facility] [place] [address] Basic Metabolic Panel w/ Ref janie to MGOrdered By: Yamile Maldonado on 02-24-2021 Anion gap [Moles/Vol] 7 mmol/L 3 - 13 mmol/L [facility] Work Phone: [phone] Calcium [Mass/Vol] 9.2 mg/dL 8.4 - 10. 4 mg/dL [facility] Work Phone: [phone] Chloride [Moles/Vol] 105 mmol/L 98 - 10 7 mmol/L [facility] Work Phone: ) [phone] CO2 [Moles/Vol] 26 mmol/L 22 - 30 mmol/L [facility] Work Phone: [phone] Creatinine [Mass/Vol] 0.71 mg/dL 0.52 - 1.25 mg/dL [facility] Work Phone: [phone] EGFR IF NonAfrican [place]iboutian >90.0 >60 mL/min [facility] Work Phone: ) [phone] GFR/1.73 sq M.predicted among blacks MDRD (S/P/Bld) [Vol rate/Area] mL/min/{1.73_m2} >60 mL/min [facility] Work Phone: [phone] Glucose [Mass/Vol] 75 mg/dL 70 - 100 mg/dL [facility] Work Phone: [phone] Interpretation and review of laboratory results Abnormal [facility] Work Phone: [phone] Potassium [Moles/Vol] 3.9 mmol/L 3.5 - 5.1 mmol/L [facility] Work Phone: [phone] Sodium [Moles/Vol] 138 mmol/L 135 - 145 mmol/L [facility] Work Phone: [phone] Urea nitrogen (BldV) [Mass/Vol] 4 mg/dL Low 7 - 20 mg/dL [facility] Work Phone: [phone] [facility] Work Phone: [phone] [facility] Work Phone: [phone] CBCOrdered By: Yamile nj on 02-24-2021 Hematocrit (Bld) [Volume fraction] 30.6 % Low 35.0 - 47.0 % [facility] Work Phone: [phone] Hemoglobin.gastrointesti nal spec 1 Ql (Stl) 10.1 g/dL Low 11.7 - 16.0 g/dL [facility] Work Phone: [phone] Interpretation and review of laboratory results Abnormal [facility] Work Phone: [phone] MCH (RBC) [Entitic mass] 26.2 pg 26. 0 - 34.0 pg [facility] Work Phone: [phone] MCHC (RBC) [Mass/Vol] 33.1 % 32.0 - 36.0 % [facility] Work Phone: [phone] MCV (RBC) [Entitic vol] 79.1 fL 79.0 - 98.0 fL [facility] Work Phone: [phone] Platelet distribution width (Bld) [Ratio] 14.5 % 11.5 - 14.5 % [facility] Work Phone: [phone] Platelet mean volume (Bld) [Entitic vol] 6.9 fL Low 7.4 - 10.4 fL [facility] Work Phone: [phone] Platelets (Bld) [#/Vol] 336 10*3/uL 140 - 440 10*3/uL [facility] Work Phone: [phone] RBC (Bld) [#/Vol] 3.86 10*6/uL 3.80 - 5.20 10*6/uL [facility] Work Phone: [phone] WBC (Bld) [#/Vol] 6.5 10*3/uL 3.6 - 10.7 10*3/uL [facility] Work Phone: [phone] [facility] Work Phone: [phone] [facility] Work Phone: [phone] CULTURE URINEon 02-24-2021 CULTURE URINE CULTURE URINE --> St at[facility]: F Normal urogenital kristin present. Normal [facility] Comment on above: Performed By: #### C /UR, CUA2 ####[employer] [id number] [place], [place] [address] Culture, UrineOrdered By: Jennifer Ward on 02-24-2021 Bacteria identified Cx Nom (U) Normal urogenital kristin present. [facility] Work Phone: [facility] Work Phone: [facility] Work Phone: Hemogramon 02-24-2021 Erythrocyte distribution width (RBC) [Ratio] 14.5 % Normal 11.5-14.5 [facility] Comment on above: Performed By: #### B MP3Peter, HEMOG ####[address] [place], [place] Hematocrit (Bld) [Volume fraction] 30.6 % Low 35.0-47.0 [facility] Comment on above: Performed By: #### Rubén MENDENHALL3Peter, HEMOG ####[address] [place], [place] Hemoglobin (Bld) [Mass/Vol] 10.1 g/dL Low 11.7-16.0 [facility] Comment on above: Performed By: #### Rubén MENDENHALL3Peter, HEMOG ####[address] [place], [place] MCH (RBC) [Entitic mass] 26.2 pg Normal 26.0-34.0 [facility] Comment on above: Performed By: #### Rubén MENDENHALL3Peter, HEMOG ####[address] [place], [place] MCHC 33.1 % Normal 32.0-36.0 [facility] Comment on above: Performed By: #### Rubén MP3Peter, HEMOG ####[address] [place], [place] MCV (RBC) [Entitic vol] 79.1 fL Normal 79.0-98.0 [facility] Comment on above: Performed By: #### B MP3M, HEMOG ####[address] [place], [place] Platelet mean volume (Bld) [Entitic vol] 6.9 fL Low 7.4-10.4 [facility] Comment on above: Performed By: #### B MP3M, HEMOG ####[facility] [id number] [place], [place] Platelets (Bld) [#/Vol] 336 10*3/uL Normal 140-440 [facility] Comment on above: Performed By: #### B MP3M, HEMOG ####[facility] [address] [place], [place] RBC (Bld) [#/Vol] 3.86 10*6/uL Normal 3.80-5.20 [facility] Comment on above: Performed By: #### B MP3M, HEMOG ####[facility] [place], [place] WBC (Bld) [#/Vol] 6.5 10*3/uL Normal 3.6-10.7 [facility] Comment on above: Performed By: #### B MP3M, HEMOG ####[facility] [id number] [place], [place] Add On Lab TestOrdered By: Peter Ward on 02-23-2021 Add On Accepted [facility] Work Phone: [facility] Work Phone: [facility] Work Phone: Add on test from HISon 02-23 Add on test from HIS Accepted Normal [facility] Comment on above: Result Comment: Spec imen available & acceptable for analysis. Performed By: #### A DDON ####[facility] [address] [place], [place] CR Abdomen APon 02-23-2021 CR Abdomen AP Normal [facility] CULTURE URINEon 02-23-2021 CULTURE URINE CULTURE URINE --> St atus: F Normal urogenital kristin present. Normal [facility] Comment on above: Performed By: #### C /UR ####[facility] [place], [place] Comp Metabolic Panelon 02-23 ALP [Catalytic activity/Vol] 68 U/L Normal 38-126 [facility] Comment on above: Performed By: #### C MP3, LIPA4, HEMDF ####[address] [place], [place] ALT [Catalytic activity/Vol] 23 U/L Normal 0-34 [facility] Comment on above: Result Comment: The ALT test is performed by an updated assay method.Please note that the reference intervals have beenchanged and are now sex specific. Performed By: #### C MP3, LIPA4, HEMDF ####[address] [place], [place] Anion gap [Moles/Vol] 9 mmol/L Normal 3-13 [facility] Comment on above: Performed By: #### C MP3, LIPA4, HEMDF ####[address] [place], [place] AST [Catalytic activity/Vol] 26 U/L Normal 15-46 [facility] Comment on above: Performed By: #### C MP3, LIPA4, HEMDF ####[address] Bilirubin [Mass/Vol] 0.6 mg/dL Normal 0.2-1.3 [facility] Comment on above: Performed By: #### C MP3, LIPA4, HEMDF ####[address] Calcium [Mass/Vol] 9.9 mg/dL Normal 8.4-10.4 [facility] Comment on above: Performed By: #### C MP3, LIPA4, HEMDF ####[address] [place], [place] CO2 [Moles/Vol] 23 mmol/L Normal 22-30 [facility] Comment on above: Performed By: #### C MP3, LIPA4, HEMDF ####[address] [place], [place] Glucose [Mass/Vol] 94 mg/dL Normal 70-100 [facility] Comment on above: Performed By: #### C MP3, LIPA4, HEMDF ####[address] [address] [place], [place] Protein [Mass/Vol] 8.6 g/dL High 6.3-8.2 [facility] Comment on above: Performed By: #### C ZA3GARIMAA4, HEMDF ####[facility] [place], [place] Urea nitrogen [Mass/Vol] 9 mg/dL Normal 7-20 [facility] Comment on above: Performed By: #### C MP3 LIPA4, HEMDF ####[facility] [place], [place] Creatinine [Mass/Vol] 0.84 mg/dL Normal 0.52-1.25 [facility] Comment on above: Performed By: #### C ZA3 LIPLuisa, HEMDF ####[address] [place], [place] eGFR OTHER > 90.0 Normal >60 [facility] Comment on above: Result Comment: KDIG O guidelines provide the following GFR categories:Stage GFR(ml/min/1.73 m2) TermsG1 >=90 Normal or highG2 60-89 Mildly decreased*G3a 45-59 Mildly to moderately [id number] 30-44 Moderately to severely decreasedG4 15-29 Severely decreasedG5 <15 Kidney failure*Relative to young adult level.In the absence of evidence of kidney damage, neither GFRcategory G1 nor G2 fulfill the criteria for CKD.The CKD-EPI equation is validated in individuals 18 yearsof age and older. Currently the best equation forestimating glomerular filtration rate (GFR) from serumcreatinine in children is the Bedside Boyer equation.It is less accurate in patients with extremes of musclemass, restriction of dietary protein, ingestion of creatine,extra-renal metabolism of creatinine, or treatment withmedications that affect renal tubular creatinine secretion. Performed By: #### C MP3, LIPA4, HEMDF ####[address] [place], [place] GFR/1.73 sq M.predicted among blacks MDRD (S/P/Bld) [Vol rate/Area] mL/min/{1.73_m2} Normal >60 [facility] Comment on above: Performed By: #### C MP3, LIPA4, HEMDF ####[address] [place], [place] Albumin [Mass/Vol] 4.6 g/dL Normal 3.5-5.0 [facility] Comment on above: Performed By: #### C MP3, LIPA4, HEMDF ####[address] [place], [place] Chloride [Moles/Vol] 107 mmol/L Normal 98-107 [facility] Comment on above: Performed By: #### C MP3, LIPA4, HEMDF ####[address] [place], [place] Potassium [Moles/Vol] 4.3 mmol/L Normal 3.5-5.1 [facility] Comment on above: Performed By: #### C MP3, LIPA4, HEMDF ####[address] [place], [place] Sodium [Moles/Vol] 139 mmol/L Normal 135-145 [facility] Comment on above: Performed By: #### C MP3, LIPA4, HEMDF ####[address] [place], [place] Complete Urinalysison 2020 Appearance (U) Clear Normal Clear [facility] Comment on above: Result Comment: . Performed By: #### C /UR, CUA2 ####[address] [place], [place] Bacteria LM.HPF (Urine sed) [#/Area] Negative Normal Negative [facility] Comment on above: Result Comment: . Performed By: #### C /UR, CUA2 ####[address] [place], [place] Bilirubin,Urine Negative Normal Negative [facility] Comment on above: Result Comment: . Performed By: #### C /UR, CUA2 ####[address] [place], [place] Cast, Hyaline Negative Normal Negative [facility] Comment on above: Result Comment: . Performed By: #### C /UR, CUA2 ####[address] [place], [place] Color (U) Light-Yellow Normal Lt. Yellow [facility] Comment on above: Result Comment: . Performed By: #### C /UR, CUA2 ####[address] [place], [place] Glucose Ql (U) Normal Normal Normal (<70) [facility] Comment on above: Result Comment: . Performed By: #### C /UR, CUA2 ####[address] [place], [place] Ketone,Urine 40 mg/dL Abnormal Negative [facility] Comment on above: Result Comment: . Performed By: #### C /UR, CUA2 ####[address] [place], [place] Leukocytes,Urine 75 Nesha/uL Abnormal Negative [facility] Comment on above: Result Comment: . Performed By: #### C /UR, CUA2 ####[address] [place], [place] Mucous Threads Few Normal Negative [facility] Comment on above: Result Comment: . Performed By: #### C /UR, CUA2 ####[address] [place], [place] Nitrites,Urine Negative Normal Negative [facility] Comment on above: Result Comment: . Performed By: #### C /UR, CUA2 ####[address] [place], [place] Occult Blood,Urine 0.2 mg/dL Abnormal Negative [facility] Comment on above: Result Comment: . Performed By: #### C /UR, CUA2 ####[address] [place], [place] pH,Urine 7.5 Normal 5.0-8.0 [facility] Comment on above: Result Comment: . Performed By: #### C /UR, CUA2 ####[address] [place], [place] Protein (U) [Mass/Vol] 20 mg/dL Abnormal Negative [facility] Comment on above: Result Comment: . Performed By: #### C /UR, CUA2 ####[facility] [id number] [place], [place] RBC, Urine 26 - 50 Abnormal 0-2 [facility] Comment on above: Result Comment: . Performed By: #### C /UR, CUA2 ####[facility] [id number] [place], [place] Specific [place],Urine 1.008 Normal 1.005 - 1.030 [facility] Comment on above: Result Comment: . Performed By: #### C /UR, CUA2 ####[facility] [address] [place], [place] Squamous Epithelial 0 - 2 Normal 3-5 [facility] Comment on above: Result Comment: . Performed By: #### C /UR, CUA2 ####[facility] [address] [place], [place] Urobilinogen,Urine Normal Normal Normal (0-1) [facility] Comment on above: Result Comment: . Performed By: #### C /UR, CUA2 ####[facility] [id number] [place], [place] WBC, Urine 3 - 5 Normal 0-5 [facility] Comment on above: Result Comment: . Performed By: #### C /UR, CUA2 ####[facility] [address] [place], [place] Comprehensive Metabolic Pane lOrdered By: Semaj Ward on 02-23-2021 Albumin [Mass/Vol] 4.6 g/dL 3.5 - 5.0 g/dL [facility] Work Phone: ALP (Bld) [Catalytic activity/Vol] 68 U/L 38 - 126 U/L [facility] Work Phone: ALT [Catalytic activity/Vol] 23 U/L 0 - 34 U/L [facility] Work Phone: Anion gap [Moles/Vol] 9 mmol/L 3 - 13 mmol/L [facility] Work Phone: AST [Catalytic activity/Vol] 26 U/L 15 - 46 U/L [facility] Work Phone: [phone] Bilirubin [Mass/Vol] 0.6 mg/dL 0.2 - 1 .3 mg/dL [facility] Work Phone: [phone] Calcium [Mass/Vol] 9.9 mg/dL 8.4 - 10. 4 mg/dL [facility] Work Phone: [phone] Chloride [Moles/Vol] 107 mmol/L 98 - 10 7 mmol/L [facility] Work Phone: [phone] CO2 [Moles/Vol] 23 mmol/L 22 - 30 mmol/L [facility] Work Phone: [phone] Creatinine [Mass/Vol] 0.84 mg/dL 0.52 - 1.25 mg/dL [facility] Work Phone: [phone] EGFR IF NonAfrican [place]ib[place]ian >90.0 >60 mL/min [facility] Work Phone: [phone] Free PSA/Total PSA [Mass fraction] 8.6 g/dL High 6.3 - 8.2 g/dL [facility] Work Phone: [phone] GFR/1.73 sq M.predicted among blacks MDRD (S/P/Bld) [Vol rate/Area] mL/min/{1.73_m2} >60 mL/min [facility] Work Phone: [phone] Glucose [Mass/Vol] 94 mg/dL 70 - 100 mg/dL [facility] Work Phone: [phone] Interpretation and review of laboratory results Abnormal [facility] Work Phone: [phone] Potassium [Moles/Vol] 4.3 mmol/L 3.5 - 5.1 mmol/L [facility] Work Phone: [phone] Sodium [Moles/Vol] 139 mmol/L 135 - 145 mmol/L [facility] Work Phone: [phone] Urea nitrogen (BldV) [Mass/Vol] 9 mg/dL 7 - 20 mg/dL [facility] Work Phone: ED Provider Noteon 1 ED Provider Note Normal [facility] Hemogram (CBC) w/Auto DiffOr dered By: Semaj Ward on 02-23-2021 Absolute Baso # 0.0 10*3/uL 0.0 - 0.2 10*3/uL [facility] Work Phone: [phone] Absolute Eos # 0.1 10*3/uL 0.0 - 0.5 10*3/uL [facility] Work Phone: [phone] Absolute Lymph # 1.0 10*3/uL 1.0 - 4.3 10*3/uL [facility] Work Phone: [phone] Absolute [place] # 0.4 10*3/uL 0.0 - 0.8 10*3/uL [facility] Work Phone: [phone] Absolute Neut # 10.1 10*3/uL High 1.8 - 7.0 10*3/uL [facility] Work Phone: [phone] Basophils/100 WBC (Bld) 0.3 % 0.0 - 2.0 % [facility] Work Phone: [phone] Eosinophils/100 WBC (Bld) 0.6 % Low 1.0 - 6.0 % [facility] Work Phone: [phone] Granulocytes/100 WBC (Bld) 87.0 % High 40.0 - 80.0 % [facility] Work Phone: [phone] Hematocrit (Bld) [Volume fraction] 36.2 % 35.0 - 47.0 % [facility] Work Phone: [phone] Hemoglobin.gastrointesti nal spec 1 Ql (Stl) 12.0 g/dL 11.7 - 16.0 g/dL [facility] Work Phone: [phone] Interpretation and review of laboratory results Abnormal [facility] Work Phone: [phone] Lymphocytes/100 WBC (Bld) 8.4 % Low 20.0 - 40.0 % [facility] Work Phone: [phone] MCH (RBC) [Entitic mass] 26.5 pg 26. 0 - 34.0 pg [facility] Work Phone: [phone] MCHC (RBC) [Mass/Vol] 33.1 % 32.0 - 36.0 % [facility] Work Phone: [phone] MCV (RBC) [Entitic vol] 80.0 fL 79.0 - 98.0 fL [facility] Work Phone: [phone] Monocytes/100 WBC (Bld) 3.7 % 2.0 - 10.0 % [facility] Work Phone: [phone] Platelet distribution width (Bld) [Ratio] 14.5 % 11.5 - 14.5 % [facility] Work Phone: [phone] Platelet mean volume (Bld) [Entitic vol] 6.7 fL Low 7.4 - 10.4 fL [facility] Work Phone: [phone] Platelets (Bld) [#/Vol] 444 10*3/uL High 140 - 440 10*3/uL [facility] Work Phone: [phone] RBC (Bld) [#/Vol] 4.53 10*6/uL 3.80 - 5.20 10*6/uL [facility] Work Phone: [phone] WBC (Bld) [#/Vol] 11.6 10*3/uL High 3.6 - 10.7 10*3/uL [facility] Work Phone: [phone] [facility] Work Phone: [phone] [facility] Work Phone: [phone] Hemogram w/ Autodiffon 02-23 Abs Baso Cnt 0.0 10*3/uL Normal 0.0-0.2 [facility] Comment on above: Performed By: #### C MP3, LIPA4, HEMDF ####[facility] [id number] [place] [address] Abs Neutrophile Cnt 10.1 10*3/uL High 1.8-7.0 [facility] Comment on above: Performed By: #### C MP3, LIPA4, HEMDF ####[facility] [id number] [place] [address] Basophils/100 WBC (Bld) 0.3 % Normal 0.0-2.0 [facility] Comment on above: Performed By: #### C MP3, LIPA4, HEMDF ####[facility] [address] [place] Eosinophils (Bld) [#/Vol] 0.1 10*3/uL Normal 0.0-0.5 [facility] Comment on above: Performed By: #### C MP3, LIPA4, HEMDF ####[address] [place], [place] Eosinophils/100 WBC (Bld) 0.6 % Low 1.0-6.0 [facility] Comment on above: Performed By: #### C MP3, LIPA4, HEMDF ####[address] Erythrocyte distribution width (RBC) [Ratio] 14.5 % Normal 11.5-14.5 [facility] Comment on above: Performed By: #### C MP3, LIPA4, HEMDF ####[address] Granulocytes/100 WBC (Bld) 87.0 % High 40.0-80.0 [facility] Comment on above: Performed By: #### C MP3, LIPA4, HEMDF ####[address] Hematocrit (Bld) [Volume fraction] 36.2 % Normal 35.0-47.0 [facility] Comment on above: Performed By: #### C MP3, LIPA4, HEMDF ####[address] Hemoglobin (Bld) [Mass/Vol] 12.0 g/dL Normal 11.7-16.0 [facility] Comment on above: Performed By: #### C MP3, LIPA4, HEMDF ####[address] Lymphocytes (Bld) [#/Vol] 1.0 10*3/uL Normal 1.0-4.3 [facility] Comment on above: Performed By: #### C MP3, LIPA4, HEMDF ####[address] Lymphocytes/100 WBC (Bld) 8.4 % Low 20.0-40.0 [facility] Comment on above: Performed By: #### C MP3, LIPA4, HEMDF ####[address] MCH (RBC) [Entitic mass] 26.5 pg Normal 26.0-34.0 [facility] Comment on above: Performed By: #### C MP3, LIPA4, HEMDF ####[address] MCHC 33.1 % Normal 32.0-36.0 [facility] Comment on above: Performed By: #### C MP3, LIPA4, HEMDF ####[address] [place], [place] MCV (RBC) [Entitic vol] 80.0 fL Normal 79.0-98.0 [facility] Comment on above: Performed By: #### C MP3, LIPA4, HEMDF ####[address] Monocytes (Bld) [#/Vol] 0.4 10*3/uL Normal 0.0-0.8 [facility] Comment on above: Performed By: #### C MP3, LIPA4, HEMDF ####[address] Monocytes/100 WBC (Bld) 3.7 % Normal 2.0-10.0 [facility] Comment on above: Performed By: #### C MP3, LIPA4, HEMDF ####[address] Platelet mean volume (Bld) [Entitic vol] 6.7 fL Low 7.4-10.4 [facility] Comment on above: Performed By: #### C MP3, LIPA4, HEMDF ####[address] Platelets (Bld) [#/Vol] 444 10*3/uL High 140-440 [facility] Comment on above: Performed By: #### C MP3, LIPA4, HEMDF ####[facility] [address] [place] [address] RBC (Bld) [#/Vol] 4.53 10*6/uL Normal 3.80-5.20 [facility] Comment on above: Performed By: #### C MP3, LIPA4, HEMDF ####[facility] [id number] [place] WBC (Bld) [#/Vol] 11.6 10*3/uL High 3.6-10.7 [facility] Comment on above: Performed By: #### C MP3, LIPA4, HEMDF ####[facility] [address] [place] [address] Lipaseon 02-23-2021 Lipase [Catalytic activity/Vol] 71 U/L Normal 23-300 [facility] Comment on above: Performed By: #### C MP3, LIPA4, HEMDF ####[facility] [id number] [place], [place] LipaseOrdered By: Semaj bales on 02-23-2021 Lipase [Catalytic activity/Vol] 71 U/L 23 - 300 U/L [facility] Work Phone: [phone] No Panel InformationOrdered By: Semaj Ward on 02-23-2021 [facility] Work Phone: [phone] [facility] Work Phone: [phone] UrinalysisOrdered By: Yamilet Ward on 02-23-2021 Appearance (U) Clear Clear NA [facility] Work Phone: [phone] Bacteria, UA Negative Negative /[HPF] [facility] Work Phone: [phone] Bilirubin Urine Negative Negative mg/dL [facility] Work Phone: [phone] Color (U) Light-Yellow Lt. Yellow NA [facility] Work Phone: Glucose, Ur Normal Normal (<70) mg/dL [facility] Work Phone: [phone] Hyaline Casts, UA Negative Negative /[LPF] [facility] Work Phone: Interpretation and review of laboratory results Abnormal [facility] Work Phone: [phone] Ketones Ql (U) 40 mg/dL Abnormal Negative [facility] Work Phone: [phone] LEUKOCYTES, UA 75 Abnormal Negative Nesha/uL [facility] Work Phone: Mucous Threads Few Negative /[LPF] [facility] Work Phone: [phone] Nitrite, Urine Negative Negative NA [facility] Work Phone: [phone] Occult Blood,Urine 0.2 mg/dL Abnormal Negative [facility] Work Phone: pH (U) 7.5 [pH] [facility] Work Phone: [phone] RBC, UA 26-50 Abnormal 0 - 2 /[HPF] [facility] Work Phone: [phone] Specific [place], Urine 1.008 S [facility] Work Phone: [phone] Squam Epithel, UA 0-2 3 - 5 /[HPF] [facility] Work Phone: [phone] Total Protein, Urine 20 mg/dL Abnormal Negative [facility] Work Phone: [phone] Urobilinogen, Urine Normal Normal (0-1) mg/dL [facility] Work Phone: [phone] WBC, UA 3-5 0 - 5 /[HPF] [facility] Work Phone: [phone] [facility] Work Phone: [phone] [facility] Work Phone: [phone] XR ABDOMEN (KUB) (SINGLE AP VIEW)Ordered By: Semaj Ward on 02-23-2021 [facility] Work Phone: [facility] Work Phone: [phone] [facility] Work Phone: [phone] Basic Metabolic Panelon 02-05 Anion gap [Moles/Vol] 8 mmol/L Normal 3-13 [facility] Comment on above: Performed By: #### H EMDF, BMP3 ####[facility] [address] [place] [address] Calcium [Mass/Vol] 9.3 mg/dL Normal 8.4-10.4 [facility] Comment on above: Performed By: #### H CHELSY BMP3 ####[facility] [id number] [place], [place] CO2 [Moles/Vol] 25 mmol/L Normal 22-30 [facility] Comment on above: Performed By: #### H CHELSY BMP3 ####[address] [place], [place] Creatinine [Mass/Vol] 0.86 mg/dL Normal 0.52-1.25 [facility] Comment on above: Performed By: #### H CHELSY BMP3 ####[address] [place], [place] eGFR OTHER > 90.0 Normal >60 [facility] Comment on above: Result Comment: KDIG O guidelines provide the following GFR categories:Stage GFR(ml/min/1.73 m2) TermsG1 >=90 Normal or highG2 60-89 Mildly decreased*G3a 45-59 Mildly to moderately [id number] 30-44 Moderately to severely decreasedG4 15-29 Severely decreasedG5 <15 Kidney failure*Relative to young adult level.In the absence of evidence of kidney damage, neither GFRcategory G1 nor G2 fulfill the criteria for CKD.The CKD-EPI equation is validated in individuals 18 yearsof age and older. Currently the best equation forestimating glomerular filtration rate (GFR) from serumcreatinine in children is the Bedside Boyer equation.It is less accurate in patients with extremes of musclemass, restriction of dietary protein, ingestion of creatine,extra-renal metabolism of creatinine, or treatment withmedications that affect renal tubular creatinine secretion. Performed By: #### H CHELSY BMP3 ####[facility] [address] [place], [place] GFR/1.73 sq M.predicted among blacks MDRD (S/P/Bld) [Vol rate/Area] mL/min/{1.73_m2} Normal >60 [facility] Comment on above: Performed By: #### H CHELSY BMP3 ####[facility] [place], [place] Glucose [Mass/Vol] 106 mg/dL High 70-100 [facility] Comment on above: Performed By: #### H EMDF, BMP3 ####[address] [place], [place] Urea nitrogen [Mass/Vol] 7 mg/dL Normal 7-20 [facility] Comment on above: Performed By: #### H EMDF, BMP3 ####[address] [place], [place] Chloride [Moles/Vol] 107 mmol/L Normal 98-107 [facility] Comment on above: Performed By: #### H EMDF, BMP3 ####[address] [place], [place] Potassium [Moles/Vol] 4.0 mmol/L Normal 3.5-5.1 [facility] Comment on above: Performed By: #### H EMDF, BMP3 ####[address] [place], [place] Sodium [Moles/Vol] 139 mmol/L Normal 135-145 [facility] Comment on above: Performed By: #### H EMDF, BMP3 ####[address] [place], [place] CT Abdomen/Pelvis w/o Contra ston 02-22-2021 CT Abdomen/Pelvis w/o Contrast Normal [facility] Complete Urinalysison 2020 Appearance (U) Clear Normal Clear [facility] Comment on above: Result Comment: . Performed By: #### C UA2 ####[address] [place], [place] Bacteria Few Abnormal Negative [facility] Comment on above: Result Comment: . Performed By: #### C UA2 ####[address] [place], [place] Bilirubin,Urine Negative Normal Negative [facility] Comment on above: Result Comment: . Performed By: #### C UA2 ####[address] [place], [place] Cast, Hyaline Negative Normal Negative [facility] Comment on above: Result Comment: . Performed By: #### C UA2 ####[address] [place], [place] Color (U) Light-Yellow Normal Lt. Yellow [facility] Comment on above: Result Comment: . Performed By: #### C UA2 ####[id number] [place], [place] Glucose Ql (U) Normal Normal Normal (<70) [facility] Comment on above: Result Comment: . Performed By: #### C UA2 ####[place] [address] [address] [place], [place] Ketone,Urine 10 mg/dL Abnormal Negative [facility] Comment on above: Result Comment: . Performed By: #### C UA2 ####[address] [place], [place] Leukocytes,Urine 75 Nesha/uL Abnormal Negative [facility] Comment on above: Result Comment: . Performed By: #### C UA2 ####[place] [address] [address] [place] Mucous Threads Few Normal Negative [facility] Comment on above: Result Comment: . Performed By: #### C UA2 ####[place] [address] [address] [place], [place] Nitrites,Urine Negative Normal Negative [facility] Comment on above: Result Comment: . Performed By: #### C UA2 ####[address] [place], [place] Occult Blood,Urine 0.2 mg/dL Abnormal Negative [facility] Comment on above: Result Comment: . Performed By: #### C UA2 ####[address] [place], [place] pH,Urine 7.0 Normal 5.0-8.0 [facility] Comment on above: Result Comment: . Performed By: #### C UA2 ####[address] [place], [place] Protein (U) [Mass/Vol] 30 mg/dL Abnormal Negative [facility] Comment on above: Result Comment: . Performed By: #### C UA2 ####[id number] . [place], [place] RBC, Urine 51 - 100 Abnormal 0-2 [facility] Comment on above: Result Comment: . Performed By: #### C UA2 ####[address] [place], [place] Specific [place],Urine 1.009 Normal 1.005 - 1.030 [facility] Comment on above: Result Comment: . Performed By: #### C UA2 ####[address] [place], [place] Squamous Epithelial 0 - 2 Normal 3-5 [facility] Comment on above: Result Comment: . Performed By: #### C UA2 ####[address] Urobilinogen,Urine Normal Normal Normal (0-1) [facility] Comment on above: Result Comment: . Performed By: #### C UA2 ####[address] WBC, Urine 3 - 5 Normal 0-5 [facility] Comment on above: Result Comment: . Performed By: #### C UA2 ####[address] ED Provider Noteon ED Provider Note Normal [facility] Hemogram w/ Autodiffon 02-22 Abs Baso Cnt 0.1 10*3/uL Normal 0.0-0.2 [facility] Comment on above: Performed By: #### H EMDF BMP3 ####[address] [place], [place] Abs Neutrophile Cnt 5.6 10*3/uL Normal 1.8-7.0 [facility] Comment on above: Performed By: #### H EMDF BMP3 ####[address] Basophils/100 WBC (Bld) 0.7 % Normal 0.0-2.0 [facility] Comment on above: Performed By: #### H CHELSY BMP3 ####[address] Eosinophils (Bld) [#/Vol] 0.1 10*3/uL Normal 0.0-0.5 [facility] Comment on above: Performed By: #### H CHELSY BMP3 ####[address] Eosinophils/100 WBC (Bld) 1.7 % Normal 1.0-6.0 [facility] Comment on above: Performed By: #### H CHELSY BMP3 ####[address] Erythrocyte distribution width (RBC) [Ratio] 15.1 % High 11.5-14.5 [facility] Comment on above: Performed By: #### H CHELSY BMP3 ####[address] Granulocytes/100 WBC (Bld) 70.7 % Normal 40.0-80.0 [facility] Comment on above: Performed By: #### H CHELSY BMP3 ####[address] Hematocrit (Bld) [Volume fraction] 33.0 % Low 35.0-47.0 [facility] Comment on above: Performed By: #### H CHELSY BMP3 ####[address] Hemoglobin (Bld) [Mass/Vol] 10.8 g/dL Low 11.7-16.0 [facility] Comment on above: Performed By: #### H CHELSY BMP3 ####[address] Lymphocytes (Bld) [#/Vol] 1.5 10*3/uL Normal 1.0-4.3 [facility] Comment on above: Performed By: #### H CHELSY BMP3 ####[address], [place] Lymphocytes/100 WBC (Bld) 18.6 % Low 20.0-40.0 [facility] Comment on above: Performed By: #### H CHELSY BMP3 ####[address] MCH (RBC) [Entitic mass] 25.7 pg Low 26.0-34.0 [facility] Comment on above: Performed By: #### H CHELSY BMP3 ####[address] MCHC 32.9 % Normal 32.0-36.0 [facility] Comment on above: Performed By: #### H CHELSY BMP3 ####[address] MCV (RBC) [Entitic vol] 78.3 fL Low 79.0-98.0 [facility] Comment on above: Performed By: #### H CHELSY BMP3 ####[address] Monocytes (Bld) [#/Vol] 0.7 10*3/uL Normal 0.0-0.8 [facility] Comment on above: Performed By: #### H CHELSY BMP3 ####[address] Monocytes/100 WBC (Bld) 8.3 % Normal 2.0-10.0 [facility] Comment on above: Performed By: #### H CHELSY BMP3 ####[address] Platelet mean volume (Bld) [Entitic vol] 6.7 fL Low 7.4-10.4 [facility] Comment on above: Performed By: #### H CHELSY BMP3 ####[address] Platelets (Bld) [#/Vol] 393 10*3/uL Normal 140-440 [facility] Comment on above: Performed By: #### H CHELSY BMP3 ####[address] [place] RBC (Bld) [#/Vol] 4.21 10*6/uL Normal 3.80-5.20 [facility] Comment on above: Performed By: #### H CHELSY BMP3 ####[address] [place] WBC (Bld) [#/Vol] 8.0 10*3/uL Normal 3.6-10.7 [facility] Comment on above: Performed By: #### H CHELSY BMP3 ####[address] [place] CULTURE BLOODon 02-17-2021 Microscopic examination of blood, culture CULTURE BLOOD --> Status: F No growth at 5 days. Normal [facility] Comment on above: Performed By: #### C /BLD ####[address] [place] CULTURE BLOOD (Two)on 2020 Microscopic examination of blood, culture CULTURE BLOOD (Two) --> Status: F No growth at 5 days. Normal [facility] Comment on above: Performed By: #### C /BLT ####[address] . [place], [place] Basic Metabolic Panelon 06-0 Calcium [Mass/Vol] 8.5 mg/dL Normal 8.4-10.4 [facility] Comment on above: Performed By: #### H NYLA BMP3M ####[address] [place] Glucose [Mass/Vol] 192 mg/dL High 70-100 [facility] Comment on above: Performed By: #### H NYLA BMP3M ####[address] . [place] Anion gap [Moles/Vol] 5 mmol/L Normal 3-13 [facility] Comment on above: Performed By: #### H NYLA BMP3M ####[address] [place], [place] CO2 [Moles/Vol] 23 mmol/L Normal 22-30 [facility] Comment on above: Performed By: #### H SHELIA REDMONDM ####[facility] [place], [place] Creatinine [Mass/Vol] 0.52 mg/dL Normal 0.52-1.25 [facility] Comment on above: Performed By: #### H GURMEET REDMOND3M ####[address] [place], [place] eGFR OTHER > 90.0 Normal >60 [facility] Comment on above: Result Comment: KDIG O guidelines provide the following GFR categories:Stage GFR(ml/min/1.73 m2) TermsG1 >=90 Normal or highG2 60-89 Mildly decreased*G3a 45-59 Mildly to moderately [id number] 30-44 Moderately to severely decreasedG4 15-29 Severely decreasedG5 <15 Kidney failure*Relative to young adult level.In the absence of evidence of kidney damage, neither GFRcategory G1 nor G2 fulfill the criteria for CKD.The CKD-EPI equation is validated in individuals 18 yearsof age and older. Currently the best equation forestimating glomerular filtration rate (GFR) from serumcreatinine in children is the Bedside Boyer equation.It is less accurate in patients with extremes of musclemass, restriction of dietary protein, ingestion of creatine,extra-renal metabolism of creatinine, or treatment withmedications that affect renal tubular creatinine secretion. Performed By: #### H SLIM REDMOND ####[facility] [place], [place] GFR/1.73 sq M.predicted among blacks MDRD (S/P/Bld) [Vol rate/Area] mL/min/{1.73_m2} Normal >60 [facility] Comment on above: Performed By: #### H GURMEET REDMOND3M ####[address] [place], [place] Urea nitrogen [Mass/Vol] 16 mg/dL Normal 7-20 [facility] Comment on above: Performed By: #### H EMOG, BMP3M ####[facility] [address] [place] [address] Chloride [Moles/Vol] 110 mmol/L High 98-107 [facility] Comment on above: Performed By: #### H EMOG, BMP3M ####[facility] [place] [address] Potassium [Moles/Vol] 4.1 mmol/L Normal 3.5-5.1 [facility] Comment on above: Performed By: #### H JANINEG, BMP3M ####[facility] [place] [address] Sodium [Moles/Vol] 138 mmol/L Normal 135-145 [facility] Comment on above: Performed By: #### H JANINEG, BMP3M ####[address] [place] [address] Basic Metabolic Panel w/ Ref janie to MGOrdered By: Pawel Guan on 02-13-2021 Anion gap [Moles/Vol] 5 mmol/L 3 - 13 mmol/L [facility] Work Phone: Calcium [Mass/Vol] 8.5 mg/dL 8.4 - 10. 4 mg/dL [facility] Work Phone: Chloride [Moles/Vol] 110 mmol/L High 98 - 10 7 mmol/L [facility] Work Phone: [phone] CO2 [Moles/Vol] 23 mmol/L 22 - 30 mmol/L [facility] Work Phone: Creatinine [Mass/Vol] 0.52 mg/dL 0.52 - 1.25 mg/dL [facility] Work Phone: EGFR IF NonAfrican Djiboutian >90.0 >60 mL/min [facility] Work Phone: Comment on above: KDIGO guidelines pro vide the following GFR categories: Stage GFR(ml/min/1.73 m2) Terms G1 >=90 Normal or high G2 60-89 Mildly decreased* G3a 45-59 Mildly to moderately decreased G3b 30-44 Moderately to severely decreased G4 15-29 Severely decreased G5 <15 Kidney failure *Relative to young adult level. In the absence of evidence of kidney damage, neither GFR category G1 nor G2 fulfill the criteria for CKD. The CKD-EPI equation is validated in individuals 18 years of age and older. Currently the best equation for estimating glomerular filtration rate (GFR) from serum creatinine in children is the Bedside Boyer equation. It is less accurate in patients with extremes of muscle mass, restriction of dietary protein, ingestion of creatine, extra-renal metabolism of creatinine, or treatment with medications that affect renal tubular creatinine secretion. GFR/1.73 sq M.predicted among blacks MDRD (S/P/Bld) [Vol rate/Area] mL/min/{1.73_m2} >60 mL/min [facility] Work Phone: Glucose [Mass/Vol] 192 mg/dL High 70 - 100 mg/dL [facility] Work Phone: Interpretation and review of laboratory results Abnormal [facility] Work Phone: Potassium [Moles/Vol] 4.1 mmol/L 3.5 - 5.1 mmol/L [facility] Work Phone: Sodium [Moles/Vol] 138 mmol/L 135 - 145 mmol/L [facility] Work Phone: Urea nitrogen (BldV) [Mass/Vol] 16 mg/dL 7 - 20 mg/dL [facility] Work Phone: Test Performed by [facility], [address] [place] [address] [facility] Work Phone: [facility] Work Phone: CBCOrdered By: Pawel ramirez on 02-13-2021 Hematocrit (Bld) [Volume fraction] 27.2 % Low 35.0 - 47.0 % [facility] Work Phone: Hemoglobin.gastrointesti nal spec 1 Ql (Stl) 9.1 g/dL Low 11.7 - 16.0 g/dL [facility] Work Phone: Interpretation and review of laboratory results Abnormal [facility] Work Phone: MCH (RBC) [Entitic mass] 26.4 pg 26. 0 - 34.0 pg [facility] Work Phone: ) [phone] MCHC (RBC) [Mass/Vol] 33.6 % 32.0 - 36.0 % [email or web address] Work Phone: 1 MCV (RBC) [Entitic vol] 78.5 fL Low 79.0 - 98.0 fL [email or web address] Work Phone: 1) Platelet distribution width (Bld) [Ratio] 14.8 % High 11.5 - 14.5 % [email or web address] Work Phone: Platelet mean volume (Bld) [Entitic vol] 7.9 fL 7.4 - 10.4 fL [email or web address] Work Phone: ) [phone] Platelets (Bld) [#/Vol] 199 10*3/uL 140 - 440 10*3/uL [email or web address] Work Phone: ) RBC (Bld) [#/Vol] 3.46 10*6/uL Low 3.80 - 5.20 10*6/uL [email or web address] Work Phone: 222 WBC (Bld) [#/Vol] 6.0 10*3/uL 3.6 - 10.7 10*3/uL [email or web address] Work Phone: Test Performed by [facility], [address] [place] [address] [facility] Work Phone: [email or web address] Work Phone: CULTURE URINEon 02-13-2021 CULTURE URINE Normal [facility] Comment on above: Performed By: #### C /UR ####[facility] [address] [place] [address] [id number] Culture, UrineOrdered By: Harjit Ruiz on 02-13-2021 Bacteria identified Cx Nom (U) Escherichia coli Abnormal [email or web address] Work Phone: Bacteria identified Cx Nom (U) >100,000 CFU/ml This phenotype is suggestive of an ESBL-producing organism. Treatment with beta-lactam antibiotics other than carbapenems may not be effective. An ID consult may be warranted. [email or web address] Work Phone: Interpretation and review of laboratory results Abnormal [facility] Work Phone: Test Performed by [facility], [address] [place] [address] [facility] Work Phone: [facility] Work Phone: Hemogramon 02-13-2021 Erythrocyte distribution width (RBC) [Ratio] 14.8 % High 11.5-14.5 [facility] Comment on above: Performed By: #### H NYLA BMP3M ####[address] [place], [place] Hematocrit (Bld) [Volume fraction] 27.2 % Low 35.0-47.0 [facility] Comment on above: Performed By: #### H NYLA BMP3M ####[address] [place] [address] Hemoglobin (Bld) [Mass/Vol] 9.1 g/dL Low 11.7-16.0 [facility] Comment on above: Performed By: #### Ethel REDMOND BMP3M ####[facility] [address] [place], [place] MCH (RBC) [Entitic mass] 26.4 pg Normal 26.0-34.0 [facility] Comment on above: Performed By: #### H NYLA BMP3M ####[address] [place] MCHC 33.6 % Normal 32.0-36.0 [facility] Comment on above: Performed By: #### H NYLA BMP3M ####[address] [place] MCV (RBC) [Entitic vol] 78.5 fL Low 79.0-98.0 [facility] Comment on above: Performed By: #### H NYLA BMP3M ####[address] [place] [address] Platelet mean volume (Bld) [Entitic vol] 7.9 fL Normal 7.4-10.4 [facility] Comment on above: Performed By: #### H JANINEYo BMP3M ####[address] [place] Platelets (Bld) [#/Vol] 199 10*3/uL Normal 140-440 [facility] Comment on above: Performed By: #### H EMOYo BMP3M ####[address] . [place] RBC (Bld) [#/Vol] 3.46 10*6/uL Low 3.80-5.20 [facility] Comment on above: Performed By: #### H EMOG BMP3M ####[address] [place] WBC (Bld) [#/Vol] 6.0 10*3/uL Normal 3.6-10.7 [facility] Comment on above: Performed By: #### Ethel REDMOND BMP3M ####[address] [address] [place], [place] Basic Metabolic Panelon 06-0 -2020 Calcium [Mass/Vol] 8.4 mg/dL Normal 8.4-10.4 [facility] Comment on above: Performed By: #### H NYLA MG3, BMP3M ####[address] Glucose [Mass/Vol] 90 mg/dL Normal 70-100 [facility] Comment on above: Performed By: #### H NYLA MG3, BMP3M ####[address] [place] Anion gap [Moles/Vol] 5 mmol/L Normal 3-13 [facility] Comment on above: Performed By: #### H EMOYo MG3, BMP3M ####[address] [place], [place] CO2 [Moles/Vol] 24 mmol/L Normal 22-30 [facility] Comment on above: Performed By: #### H EMOYo MG3, BMP3M ####[address] [address] [place] Creatinine [Mass/Vol] 0.60 mg/dL Normal 0.52-1.25 [facility] Comment on above: Performed By: #### H LULU REDMOND BMP3M ####[facility] [place], [place] eGFR OTHER > 90.0 Normal >60 [facility] Comment on above: Result Comment: KDIG O guidelines provide the following GFR categories:Stage GFR(ml/min/1.73 m2) TermsG1 >=90 Normal or highG2 60-89 Mildly decreased*G3a 45-59 Mildly to moderately [id number] 30-44 Moderately to severely decreasedG4 15-29 Severely decreasedG5 <15 Kidney failure*Relative to young adult level.In the absence of evidence of kidney damage, neither GFRcategory G1 nor G2 fulfill the criteria for CKD.The CKD-EPI equation is validated in individuals 18 yearsof age and older. Currently the best equation forestimating glomerular filtration rate (GFR) from serumcreatinine in children is the Bedside Boyer equation.It is less accurate in patients with extremes of musclemass, restriction of dietary protein, ingestion of creatine,extra-renal metabolism of creatinine, or treatment withmedications that affect renal tubular creatinine secretion. Performed By: #### H LULU REDMOND BMP3Peter ####[address] [place], [place] GFR/1.73 sq M.predicted among blacks MDRD (S/P/Bld) [Vol rate/Area] mL/min/{1.73_m2} Normal >60 [facility] Comment on above: Performed By: #### H LULU REDMOND BMP3M ####[address] [place], [place] Urea nitrogen [Mass/Vol] 10 mg/dL Normal 7-20 [facility] Comment on above: Performed By: #### H LULU REDMOND BMP3M ####[address] [place], [place] Chloride [Moles/Vol] 107 mmol/L Normal 98-107 [facility] Comment on above: Performed By: #### H LULU REDMOND, BMP3M ####[facility] [address] [place] [address] Potassium [Moles/Vol] 3.5 mmol/L Normal 3.5-5.1 [facility] Comment on above: Performed By: #### H EMOG, MG3, BMP3M ####[facility] [id number] [place] [address] Sodium [Moles/Vol] 135 mmol/L Normal 135-145 [facility] Comment on above: Performed By: #### H EMOG, MG3, BMP3M ####[facility] [address] [place] [address] Basic Metabolic Panel w/ Ref janie to MGOrdered By: Pawel Guan on 02-12-2021 Anion gap [Moles/Vol] 5 mmol/L 3 - 13 mmol/L [facility] Work Phone: Calcium [Mass/Vol] 8.4 mg/dL 8.4 - 10. 4 mg/dL [facility] Work Phone: Chloride [Moles/Vol] 107 mmol/L 98 - 10 7 mmol/L [facility] Work Phone: CO2 [Moles/Vol] 24 mmol/L 22 - 30 mmol/L [facility] Work Phone: Creatinine [Mass/Vol] 0.6 mg/dL 0.52 - 1.25 mg/dL [facility] Work Phone: EGFR IF NonAfrican Djiboutian >90.0 >60 mL/min [facility] Work Phone: Comment on above: KDIGO guidelines pro vide the following GFR categories: Stage GFR(ml/min/1.73 m2) Terms G1 >=90 Normal or high G2 60-89 Mildly decreased* G3a 45-59 Mildly to moderately decreased G3b 30-44 Moderately to severely decreased G4 15-29 Severely decreased G5 <15 Kidney failure *Relative to young adult level. In the absence of evidence of kidney damage, neither GFR category G1 nor G2 fulfill the criteria for CKD. The CKD-EPI equation is validated in individuals 18 years of age and older. Currently the best equation for estimating glomerular filtration rate (GFR) from serum creatinine in children is the Bedside Boyer equation. It is less accurate in patients with extremes of muscle mass, restriction of dietary protein, ingestion of creatine, extra-renal metabolism of creatinine, or treatment with medications that affect renal tubular creatinine secretion. GFR/1.73 sq M.predicted among blacks MDRD (S/P/Bld) [Vol rate/Area] mL/min/{1.73_m2} >60 mL/min [facility] Work Phone: Glucose [Mass/Vol] 90 mg/dL 70 - 100 mg/dL [facility] Work Phone: Potassium [Moles/Vol] 3.5 mmol/L 3.5 - 5.1 mmol/L [facility] Work Phone: Sodium [Moles/Vol] 135 mmol/L 135 - 145 mmol/L [facility] Work Phone: Urea nitrogen (BldV) [Mass/Vol] 10 mg/dL 7 - 20 mg/dL [facility] Work Phone: Test Performed by [facility], [address] [place] [address] [facility] Work Phone: [facility] Work Phone: CBCOrdered By: Pawel ramirez on 02-12-2021 Hematocrit (Bld) [Volume fraction] 25.3 % Low 35.0 - 47.0 % [facility] Work Phone: Hemoglobin.gastrointesti nal spec 1 Ql (Stl) 8.4 g/dL Low 11.7 - 16.0 g/dL [facility] Work Phone: Interpretation and review of laboratory results Abnormal [facility] Work Phone: MCH (RBC) [Entitic mass] 26.3 pg 26. 0 - 34.0 pg [facility] Work Phone: MCHC (RBC) [Mass/Vol] 33.2 % 32.0 - 36.0 % [facility] Work Phone: MCV (RBC) [Entitic vol] 79.2 fL 79.0 - 98.0 fL [facility] Work Phone: Platelet distribution width (Bld) [Ratio] 14.6 % High 11.5 - 14.5 % [facility] Work Phone: Platelet mean volume (Bld) [Entitic vol] 7.8 fL 7.4 - 10.4 fL [facility] Work Phone: [phone] Platelets (Bld) [#/Vol] 144 10*3/uL 140 - 440 10*3/uL [facility] Work Phone: [phone] RBC (Bld) [#/Vol] 3.20 10*6/uL Low 3.80 - 5.20 10*6/uL [facility] Work Phone: [phone] WBC (Bld) [#/Vol] 6.8 10*3/uL 3.6 - 10.7 10*3/uL [facility] Work Phone: Test Performed by [facility], [facility] [place] [address] [facility] Work Phone: [phone] [email or web address] Work Phone: [phone] CR Urography Retrograde w/ + w/o KUBon 02-12-2021 CR Urography Retrograde w/ + w/o KUB Normal [facility] Hemogramon 02-12-2021 Platelet mean volume (Bld) [Entitic vol] 7.8 fL Normal 7.4-10.4 [facility] Comment on above: Performed By: #### H NYLA MG3, BMP3M ####[facility] [place] [address] Platelets (Bld) [#/Vol] 144 10*3/uL Normal 140-440 [facility] Comment on above: Performed By: #### H NYLA MG3, BMP3M ####[facility] [place] [address] Erythrocyte distribution width (RBC) [Ratio] 14.6 % High 11.5-14.5 [facility] Comment on above: Performed By: #### H JANINEG MG3, BMP3M ####[facility] [place], [place] Hematocrit (Bld) [Volume fraction] 25.3 % Low 35.0-47.0 [facility] Comment on above: Performed By: #### H NYLA MG3, BMP3M ####[address] [place], [place] Hemoglobin (Bld) [Mass/Vol] 8.4 g/dL Low 11.7-16.0 [facility] Comment on above: Performed By: #### H NYLA MG3, BMP3M ####[address] MCH (RBC) [Entitic mass] 26.3 pg Normal 26.0-34.0 [facility] Comment on above: Performed By: #### H EMOYo, MG3, BMP3M ####[address] MCHC 33.2 % Normal 32.0-36.0 [facility] Comment on above: Performed By: #### H EMOYo, MG3, BMP3M ####[address] MCV (RBC) [Entitic vol] 79.2 fL Normal 79.0-98.0 [facility] Comment on above: Performed By: #### H EMOYo, MG3, BMP3M ####[address] RBC (Bld) [#/Vol] 3.20 10*6/uL Low 3.80-5.20 [facility] Comment on above: Performed By: #### H EMOYo, MG3, BMP3M ####[address] WBC (Bld) [#/Vol] 6.8 10*3/uL Normal 3.6-10.7 [facility] Comment on above: Performed By: #### H EMOG, MG3, BMP3M ####[address] Magnesiumon 02-12-2021 Magnesium [Mass/Vol] 1.9 mg/dL Normal 1.6-2.3 [facility] Comment on above: Performed By: #### H EMOG, MG3, BMP3M ####[facility] [place] [address] MagnesiumOrdered By: Kyung Lima on 02-12-2021 Magnesium [Mass/Vol] 1.9 mg/dL 1.6 - 2 .3 mg/dL [email or web address] Work Phone: Test Performed by [facility], [address] [place] [address] [facility] Work Phone: [phone] [email or web address] Work Phone: [phone] OPERATIVE REPORTOrdered By: 3m Scanning on 02-12-2021 [email or web address] Work Phone: Op Noteon 02-12-2021 Op Note Normal [facility] CBC auto differentialOrdered By: Gela Ruiz on 02-11-2021 Hematocrit (Bld) [Volume fraction] 31.4 % Low 35.0 - 47.0 % [email or web address] Work Phone: [phone] Hemoglobin.gastrointesti nal spec 1 Ql (Stl) 10.3 g/dL Low 11.7 - 16.0 g/dL [email or web address] Work Phone: Interpretation and review of laboratory results Abnormal [email or web address] Work Phone: MCH (RBC) [Entitic mass] 26.5 pg 26. 0 - 34.0 pg [email or web address] Work Phone: MCHC (RBC) [Mass/Vol] 32.9 % 32.0 - 36.0 % [facility] Work Phone: MCV (RBC) [Entitic vol] 80.8 fL 79.0 - 98.0 fL [email or web address] Work Phone: [phone] Platelet distribution width (Bld) [Ratio] 14.4 % 11.5 - 14.5 % [email or web address] Work Phone: [phone] Platelet mean volume (Bld) [Entitic vol] 7.8 fL 7.4 - 10.4 fL [facility] Work Phone: Platelets (Bld) [#/Vol] 193 10*3/uL 140 - 440 10*3/uL [facility] Work Phone: [phone] RBC (Bld) [#/Vol] 3.89 10*6/uL 3.80 - 5.20 10*6/uL [facility] Work Phone: [phone] WBC (Bld) [#/Vol] 11.3 10*3/uL High 3.6 - 10.7 10*3/uL [facility] Work Phone: Test Performed by [facility], [address] [place] [address] [facility] Work Phone: [facility] Work Phone: CR Chest Portableon 02-12-20 21 CR Chest Portable Normal [facility] CT ABDOMEN PELVIS W WO CONTR ASTOrdered By: Dayana Franks on 02-11-2021 Patient Name: ADDIS TORRES Computed Tomography ACCESSION EXAM DATE/TIME PROCEDURE ORDERING PROVIDER [id number] 02/11/2021 18:[address] Abdomen/Pelvis w/ WILMAR, [employer]-C, DAYANA E. + w/o Contrast CPT code 16937 Q9967 Reason For Exam (CT Abdomen/Pelvis w/ + w/o Contrast) recent hysterectomy with left ureteral injury and stent, possible infection and stone Report CT ABDOMEN AND PELVIS WITHOUT AND WITH CONTRAST CLINICAL INDICATION: recent hysterectomy with left ureteral injury and stent, possible infection and stone TECHNIQUE: CT scan of the abdomen and pelvis, without and with IV contrast. Multiplanar reformations. COMPARISON: January,. FINDINGS: Abdomen: Visualized lung bases grossly unremarkable. No radiopaque gallstones. Liver without significant abnormality. Spleen without significant abnormality. Pancreas without significant abnormality. Previously noted, left ureteral stent no longer visualized. Mild dilatation of left renal collecting system and ureter with heterogeneous enhancement pattern of the left kidney and very mild left perinephric fat stranding. No apparent renal calcifications. Right kidney grossly unremarkable. Adrenal glands without significant abnormality. Pelvis: Approximately 4 mm calcific density noted in the left distal ureter at pelvic inlet level and left ureteral dilatation and some periureteral fat stranding. Bowel grossly unremarkable. Appendix within normal limits. Computed Tomography Report Mild soft tissue stranding in the pelvic cul-de-sac, decreased. No significant, free peritoneal fluid or discrete abscess. Abdominal aorta is nonaneurysmal. Uterus surgically absent. Prominent or mildly enlarged ovaries again noted in the midline pelvis. Axial skeleton grossly intact. IMPRESSION: 1. Interval removal of left ureteral stent, with probable left distal ureteral calculus and mild left hydronephrosis. 2. Mildly heterogeneous enhancement pattern in the left kidney and some left perinephric fat stranding may be reactive and secondary to hydronephrosis versus nonspecific postinflammatory change or UTI. Report Dictated on Workstation: RYLEY --- Final --- Dictated: 02/11/2021 6:26 pm Dictating Physician: MD VALE WENDELL Signed Date and Time: 02/11/2021 6:37 pm Signed by: MD VALE WENDELL Transcribed Date and Time: 02/11/2021 6:26 [facility] Work Phone: [place], [facility] Incoming Radiology Results From [facility] - 02/11/2021 6:38 PM EDT Patient Name: ADDIS TORRES Computed Tomography ACCESSION EXAM DATE/TIME PROCEDURE ORDERING PROVIDER [id number] 02/11/2021 18:[address] Abdomen/Pelvis w/ WILMAR, [employer], DAYANA E. + w/o Contrast CPT code 09192 Q9967 Reason For Exam (CT Abdomen/Pelvis w/ + w/o Contrast) recent hysterectomy with left ureteral injury and stent, possible infection and stone Report CT ABDOMEN AND PELVIS WITHOUT AND WITH CONTRAST CLINICAL INDICATION: recent hysterectomy with left ureteral injury and stent, possible infection and stone TECHNIQUE: CT scan of the abdomen and pelvis, without and with IV contrast. Multiplanar reformations. COMPARISON: January,. FINDINGS: Abdomen: Visualized lung bases grossly unremarkable. No radiopaque gallstones. Liver without significant abnormality. Spleen without significant abnormality. Pancreas without significant abnormality. Previously noted, left ureteral stent no longer visualized. Mild dilatation of left renal collecting system and ureter with heterogeneous enhancement pattern of the left kidney and very mild left perinephric fat stranding. No apparent renal calcifications. Right kidney grossly unremarkable. Adrenal glands without significant abnormality. Pelvis: Approximately 4 mm calcific density noted in the left distal ureter at pelvic inlet level and left ureteral dilatation and some periureteral fat stranding. Bowel grossly unremarkable. Appendix within normal limits. Computed Tomography Report Mild soft tissue stranding in the pelvic cul-de-sac, decreased. No significant, free peritoneal fluid or discrete abscess. Abdominal aorta is nonaneurysmal. Uterus surgically absent. Prominent or mildly enlarged ovaries again noted in the midline pelvis. Axial skeleton grossly intact. IMPRESSION: 1. Interval removal of left ureteral stent, with probable left distal ureteral calculus and mild left hydronephrosis. 2. Mildly heterogeneous enhancement pattern in the left kidney and some left perinephric fat stranding may be reactive and secondary to hydronephrosis versus nonspecific postinflammatory change or UTI. Report Dictated on Workstation: RYLEY --- Final --- Dictated: 02/11/2021 6:26 pm Dictating Physician: MD VAEL WENDELL Signed Date and Time: 02/11/2021 6:37 pm Signed by: MD VALE WENDELL Transcribed Date and Time: 02/11/2021 6:26 [facility] Work Phone: [facility] Work Phone: CT Abdomen/Pelvis w/ + w/o C ontraston 02-11-2021 CT Abdomen/Pelvis w/ + w/o Contrast Normal [facility] Comp Panel with Mg Reflexon 02-11-2021 ALP [Catalytic activity/Vol] 64 U/L Normal 38-126 [facility] Comment on above: Performed By: #### H EMDF, LACTS, PCAL, LIPA4, CMP3M, MDIFF ####[facility] [id number] [place] [address] ALT [Catalytic activity/Vol] 21 U/L Normal 0-34 [facility] Comment on above: Result Comment: The ALT test is performed by an updated assay method.Please note that the reference intervals have beenchanged and are now sex specific. Performed By: #### H EMDF, LACTS, PCAL, LIPA4, CMP3M, MDIFF ####[id number] [place] [address] AST [Catalytic activity/Vol] 24 U/L Normal 15-46 [facility] Comment on above: Performed By: #### H EMDF, LACTS, PCAL, LIPA4, CMP3M, MDIFF ####[place] [address] [facility] [address] Calcium [Mass/Vol] 9.4 mg/dL Normal 8.4-10.4 [facility] Comment on above: Performed By: #### H EMDF, LACTS, PCAL, LIPA4, CMP3M, MDIFF ####[address] [facility] Glucose [Mass/Vol] 101 mg/dL High 70-100 [facility] Comment on above: Performed By: #### H EMDF, LACTS, PCAL, LIPA4, CMP3M, MDIFF ####[place] [address] [address] [facility] Protein [Mass/Vol] 7.5 g/dL Normal 6.3-8.2 [facility] Comment on above: Performed By: #### H EMDF, LACTS, PCAL, LIPA4, CMP3M, MDIFF ####[address] [facility] [address] Urea nitrogen [Mass/Vol] 11 mg/dL Normal 7-20 [facility] Comment on above: Performed By: #### H EMDF, LACTS, PCAL, LIPA4, CMP3M, MDIFF ####[address] [place] [address] Anion gap [Moles/Vol] 12 mmol/L Normal 3-13 [facility] Comment on above: Performed By: #### H EMDF, LACTS, PCAL, LIPA4, CMP3M, MDIFF ####[address] [facility] [place] Bilirubin [Mass/Vol] 0.7 mg/dL Normal 0.2-1.3 [facility] Comment on above: Performed By: #### H EMDF, LACTS, PCAL, LIPA4, CMP3M, MDIFF ####[facility] [place], [place] CO2 [Moles/Vol] 20 mmol/L Low 22-30 [facility] Comment on above: Performed By: #### H EMDF, LACTS, PCAL, LIPA4, CMP3M, MDIFF ####[address] [place], [place] Creatinine [Mass/Vol] 0.76 mg/dL Normal 0.52-1.25 [facility] Comment on above: Performed By: #### H EMDF, LACTS, PCAL, LIPA4, CMP3M, MDIFF ####[address] [place], [place] eGFR OTHER > 90.0 Normal >60 [facility] Comment on above: Result Comment: KDIG O guidelines provide the following GFR categories:Stage GFR(ml/min/1.73 m2) TermsG1 >=90 Normal or highG2 60-89 Mildly decreased*G3a 45-59 Mildly to moderately [id number] 30-44 Moderately to severely decreasedG4 15-29 Severely decreasedG5 <15 Kidney failure*Relative to young adult level.In the absence of evidence of kidney damage, neither GFRcategory G1 nor G2 fulfill the criteria for CKD.The CKD-EPI equation is validated in individuals 18 yearsof age and older. Currently the best equation forestimating glomerular filtration rate (GFR) from serumcreatinine in children is the Bedside Boyer equation.It is less accurate in patients with extremes of musclemass, restriction of dietary protein, ingestion of creatine,extra-renal metabolism of creatinine, or treatment withmedications that affect renal tubular creatinine secretion. Performed By: #### H EMDF, LACTS, PCAL, LIPA4, CMP3M, MDIFF ####[address] [place], [place] GFR/1.73 sq M.predicted among blacks MDRD (S/P/Bld) [Vol rate/Area] mL/min/{1.73_m2} Normal >60 [facility] Comment on above: Performed By: #### H EMDF, LACTS, PCAL, LIPA4, CMP3M, MDIFF ####[address] [place], [place] Albumin [Mass/Vol] 3.9 g/dL Normal 3.5-5.0 [facility] Comment on above: Performed By: #### H EMDF, LACTS, PCAL, LIPA4, CMP3M, MDIFF ####[address] [place], [place] Chloride [Moles/Vol] 104 mmol/L Normal 98-107 [facility] Comment on above: Performed By: #### H EMDF, LACTS, PCAL, LIPA4, CMP3M, MDIFF ####[address] Potassium [Moles/Vol] 4.0 mmol/L Normal 3.5-5.1 [facility] Comment on above: Performed By: #### H EMDF, LACTS, PCAL, LIPA4, CMP3M, MDIFF ####[address] [place], [place] Sodium [Moles/Vol] 136 mmol/L Normal 135-145 [facility] Comment on above: Performed By: #### H EMDF, LACTS, PCAL, LIPA4, CMP3M, MDIFF ####[address] [place], [place] Complete Urinalysison 2020 Appearance (U) Turbid Abnormal Clear [facility] Comment on above: Result Comment: . Performed By: #### C UA2 ####[address] [place], [place] Bacteria Few Abnormal Negative [facility] Comment on above: Result Comment: . Performed By: #### C UA2 ####[address] [place], [place] Bilirubin,Urine Negative Normal Negative [facility] Comment on above: Result Comment: . Performed By: #### C UA2 ####[address] [place], [place] Cast, Hyaline Negative Normal Negative [facility] Comment on above: Result Comment: . Performed By: #### C UA2 ####[address] [place], [place] Color (U) Light-Yellow Normal Lt. Yellow [facility] Comment on above: Result Comment: . Performed By: #### C UA2 ####[address] [place] Glucose Ql (U) Normal Normal Normal (<70) [facility] Comment on above: Result Comment: . Performed By: #### C UA2 ####[address] [place] Ketone,Urine 60 mg/dL Abnormal Negative [facility] Comment on above: Result Comment: . Performed By: #### C UA2 ####[address] Leukocytes,Urine 500 Nesha/uL Abnormal Negative [facility] Comment on above: Result Comment: . Performed By: #### C UA2 ####[address] [place] Mucous Threads Few Normal Negative [facility] Comment on above: Result Comment: . Performed By: #### C UA2 ####[address] [place] Nitrites,Urine Negative Normal Negative [facility] Comment on above: Result Comment: . Performed By: #### C UA2 ####[address] [place] Occult Blood,Urine 0.03 mg/dL Abnormal Negative [facility] Comment on above: Result Comment: . Performed By: #### C UA2 ####[address] [place] pH,Urine 6.5 Normal 5.0-8.0 [facility] Comment on above: Result Comment: . Performed By: #### C UA2 ####[address] Protein (U) [Mass/Vol] 30 mg/dL Abnormal Negative [facility] Comment on above: Result Comment: . Performed By: #### C UA2 ####[facility] [id number] [place], [place] RBC, Urine 6 - 10 Abnormal 0-2 [facility] Comment on above: Result Comment: . Performed By: #### C UA2 ####[address] [place], [place] Specific [place],Urine 1.006 Normal 1.005 - 1.030 [facility] Comment on above: Result Comment: . Performed By: #### C UA2 ####[facility] [id number] [place], [place] Squamous Epithelial Negative Normal 3-5 [facility] Comment on above: Result Comment: . Performed By: #### C UA2 ####[address] [place], [place] Urobilinogen,Urine Normal Normal Normal (0-1) [facility] Comment on above: Result Comment: . Performed By: #### C UA2 ####[facility] [id number] [place], [place] WBC LM.HPF (Urine sed) [#/Area] /[HPF] Abnormal 0-5 [facility] Comment on above: Result Comment: . Performed By: #### C UA2 ####[address] [place], [place] Comprehensive Metabolic Pane l w/ Reflex to MGOrdered By: Gela Ruiz on 02-11-2021 Albumin [Mass/Vol] 3.9 g/dL 3.5 - 5.0 g/dL [facility] Work Phone: ALP (Bld) [Catalytic activity/Vol] 64 U/L 38 - 126 U/L [facility] Work Phone: ALT [Catalytic activity/Vol] 21 U/L 0 - 34 U/L [facility] Work Phone: Comment on above: The ALT test is perf ormed by an updated assay method. Please note that the reference intervals have been changed and are now sex specific. Anion gap [Moles/Vol] 12 mmol/L 3 - 13 mmol/L [facility] Work Phone: AST [Catalytic activity/Vol] 24 U/L 15 - 46 U/L [facility] Work Phone: Bilirubin [Mass/Vol] 0.7 mg/dL 0.2 - 1 .3 mg/dL [facility] Work Phone: [phone] Calcium [Mass/Vol] 9.4 mg/dL 8.4 - 10. 4 mg/dL [facility] Work Phone: Chloride [Moles/Vol] 104 mmol/L 98 - 10 7 mmol/L [facility] Work Phone: CO2 [Moles/Vol] 20 mmol/L Low 22 - 30 mmol/L [facility] Work Phone: Creatinine [Mass/Vol] 0.76 mg/dL 0.52 - 1.25 mg/dL [facility] Work Phone: EGFR IF NonAfrican [place]ian >90.0 >60 mL/min [facility] Work Phone: Comment on above: KDIGO guidelines pro vide the following GFR categories: Stage GFR(ml/min/1.73 m2) Terms G1 >=90 Normal or high G2 60-89 Mildly decreased* G3a 45-59 Mildly to moderately decreased G3b 30-44 Moderately to severely decreased G4 15-29 Severely decreased G5 <15 Kidney failure *Relative to young adult level. In the absence of evidence of kidney damage, neither GFR category G1 nor G2 fulfill the criteria for CKD. The CKD-EPI equation is validated in individuals 18 years of age and older. Currently the best equation for estimating glomerular filtration rate (GFR) from serum creatinine in children is the Bedside Boyer equation. It is less accurate in patients with extremes of muscle mass, restriction of dietary protein, ingestion of creatine, extra-renal metabolism of creatinine, or treatment with medications that affect renal tubular creatinine secretion. Free PSA/Total PSA [Mass fraction] 7.5 g/dL 6.3 - 8.2 g/dL [facility] Work Phone: GFR/1.73 sq M.predicted among blacks MDRD (S/P/Bld) [Vol rate/Area] mL/min/{1.73_m2} >60 mL/min [facility] Work Phone: Glucose [Mass/Vol] 101 mg/dL High 70 - 100 mg/dL [email or web address] Work Phone: Potassium [Moles/Vol] 4.0 mmol/L 3.5 - 5.1 mmol/L [email or web address] Work Phone: Sodium [Moles/Vol] 136 mmol/L 135 - 145 mmol/L [email or web address] Work Phone: Urea nitrogen (BldV) [Mass/Vol] 11 mg/dL 7 - 20 mg/dL [facility] Work Phone: ED Provider Noteon ED Provider Note Normal [facility] Hemogram w/ Autodiffon 02-11 Erythrocyte distribution width (RBC) [Ratio] 14.4 % Normal 11.5-14.5 [facility] Comment on above: Performed By: #### H EMDF, LACTS, PCAL, LIPA4, CMP3M, MDIFF ####[facility] [id number] [place], [place] Hematocrit (Bld) [Volume fraction] 31.4 % Low 35.0-47.0 [facility] Comment on above: Performed By: #### H EMDF, LACTS, PCAL, LIPA4, CMP3M, MDIFF ####[address] [place], [place] Hemoglobin (Bld) [Mass/Vol] 10.3 g/dL Low 11.7-16.0 [facility] Comment on above: Performed By: #### H EMDF, LACTS, PCAL, LIPA4, CMP3M, MDIFF ####[address] [place], [place] MCH (RBC) [Entitic mass] 26.5 pg Normal 26.0-34.0 [facility] Comment on above: Performed By: #### H EMDF, LACTS, PCAL, LIPA4, CMP3M, MDIFF ####[address] [place], [place] MCHC 32.9 % Normal 32.0-36.0 [facility] Comment on above: Performed By: #### H EMDF, LACTS, PCAL, LIPA4, CMP3M, MDIFF ####[address] [place] MCV (RBC) [Entitic vol] 80.8 fL Normal 79.0-98.0 [facility] Comment on above: Performed By: #### H EMDF, LACTS, PCAL, LIPA4, CMP3M, MDIFF ####[address] [place], [place] Platelet mean volume (Bld) [Entitic vol] 7.8 fL Normal 7.4-10.4 [facility] Comment on above: Performed By: #### H EMDF, LACTS, PCAL, LIPA4, CMP3M, MDIFF ####[address] [place], [place] Platelets (Bld) [#/Vol] 193 10*3/uL Normal 140-440 [facility] Comment on above: Performed By: #### H EMDF, LACTS, PCAL, LIPA4, CMP3M, MDIFF ####[address] [place], [place] RBC (Bld) [#/Vol] 3.89 10*6/uL Normal 3.80-5.20 [facility] Comment on above: Performed By: #### H EMDF, LACTS, PCAL, LIPA4, CMP3M, MDIFF ####[address] [place], [place] WBC (Bld) [#/Vol] 11.3 10*3/uL High 3.6-10.7 [facility] Comment on above: Performed By: #### H EMDF, LACTS, PCAL, LIPA4, CMP3M, MDIFF ####[address] [place], [place] Lactate, SepsisOrdered By: Tiffany Ruiz on 02-11-2021 Lactate [Moles/Vol] 1.3 mmol/L 0.7 - 2. 0 mmol/L [facility] Work Phone: Test Performed by [facility], [address] [place] [address] [facility] Work Phone: [facility] Work Phone: Lactic Acid, Sepsison 2020 Lactate [Moles/Vol] 1.3 mmol/L Normal 0.7-2.0 [facility] Comment on above: Performed By: #### H EMDF, LACTS, PCAL, LIPA4, CMP3M, MDIFF ####[address] [place] [address] Lipaseon 02-11-2021 Lipase [Catalytic activity/Vol] 18 U/L Low 23-300 [facility] Comment on above: Performed By: #### H EMDF, LACTS, PCAL, LIPA4, CMP3M, IFF ####[address] [place], [place] LipaseOrdered By: Gela pike on 02-11-2021 Lipase [Catalytic activity/Vol] 18 U/L Low 23 - 300 U/L [facility] Work Phone: Manual Diffon 02-11-2021 Abs Lymph Cnt 0.5 10*3/uL Low 1.1-4.5 [facility] Comment on above: Performed By: #### H EMDF, LACTS, PCAL, LIPA4, CMP3M, MDIFF ####[address] [place] [address] Abs Monocyte Cnt 0.8 10*3/uL Normal 0.2-1.1 [facility] Comment on above: Performed By: #### H EMDF, LACTS, PCAL, LIPA4, CMP3M, MDIFF ####[address] [place] [address] Abs Neutrophile Cnt 10.1 10*3/uL High 2.2-8.2 [facility] Comment on above: Performed By: #### H EMDF, LACTS, PCAL, LIPA4, CMP3M, MDIFF ####[address] [place], [place] Anisocytosis Slight Normal [facility] Comment on above: Performed By: #### H EMDF, LACTS, PCAL, LIPA4, CMP3M, MDIFF ####[address] [place], [place] Bands 1 % Normal 0-3 [facility] Comment on above: Performed By: #### H EMDF, LACTS, PCAL, LIPA4, CMP3M, MDIFF ####[address] [place], [place] Lymphocytes 4 % Low 20-40 [facility] Comment on above: Performed By: #### H EMDF, LACTS, PCAL, LIPA4, CMP3M, MDIFF ####[address] [place], [place] Microcytosis Slight Normal [facility] Comment on above: Performed By: #### H EMDF, LACTS, PCAL, LIPA4, CMP3M, MDIFF ####[address] [place], [place] Monocytes 7 % Normal 2-10 [facility] Comment on above: Performed By: #### H EMDF, LACTS, PCAL, LIPA4, CMP3M, MDIFF ####[address] [place], [place] Ovalocytes Slight Normal [facility] Comment on above: Performed By: #### H EMDF, LACTS, PCAL, LIPA4, CMP3M, MDIFF ####[address] [place], [place] Poikilocytosis Slight Normal [facility] Comment on above: Performed By: #### H EMDF, LACTS, PCAL, LIPA4, CMP3M, MDIFF ####[address] [place], [place] RBC Morphology ABNORMAL Normal [facility] Comment on above: Performed By: #### H EMDF, LACTS, PCAL, LIPA4, CMP3M, MDIFF ####[address] Seg Neutrophils 88 % High 40-80 [facility] Comment on above: Performed By: #### H EMDF, LACTS, PCAL, LIPA4, CMP3M, MDIFF ####[address] Abs Baso Cnt 0.0 10*3/uL Normal 0.0-0.2 [facility] Comment on above: Performed By: #### H EMDF, LACTS, PCAL, LIPA4, CMP3M, MDIFF ####[address] Abs Eosin Cnt 0.0 10*3/uL Normal 0.0-0.5 [facility] Comment on above: Performed By: #### H EMDF, LACTS, PCAL, LIPA4, CMP3M, MDIFF ####[address] Basophils 0 % Normal 0-2 [facility] Comment on above: Performed By: #### H EMDF, LACTS, PCAL, LIPA4, CMP3M, MDIFF ####[address] Cells counted 100 Normal [facility] Comment on above: Performed By: #### H EMDF, LACTS, PCAL, LIPA4, CMP3M, MDIFF ####[address] Eosinophils 0 % Low 1-6 [facility] Comment on above: Performed By: #### H EMDF, LACTS, PCAL, LIPA4, CMP3M, MDIFF ####[address] Manual DifferentialOrdered B y: Gela Pachecoowski on 02-11-2021 Absolute Baso # 0.0 10*3/uL 0.0 - 0.2 10*3/uL [facility] Work Phone: Absolute Eos # 0.0 10*3/uL 0.0 - 0.5 10*3/uL [facility] Work Phone: [phone] Absolute Lymph # 0.5 10*3/uL Low 1.1 - 4.5 10*3/uL [facility] Work Phone: [phone] Absolute [place] # 0.8 10*3/uL 0.2 - 1.1 10*3/uL [facility] Work Phone: [phone] Absolute Neut # 10.1 10*3/uL High 2.2 - 8.2 10*3/uL [facility] Work Phone: [phone] Anisocytosis Slight [facility] Work Phone: [phone] Bands 1 % 0 - 3 % [facility] Work Phone: [phone] Basophils/100 WBC (Bld) 0 % 0 - 2 % [facility] Work Phone: [phone] Eosinophils/100 WBC (Bld) 0 % Low 1 - 6 % [facility] Work Phone: [phone] Interpretation and review of laboratory results Abnormal [facility] Work Phone: [phone] Lymphocytes/100 WBC (Bld) 4 % Low 20 - 40 % [facility] Work Phone: [phone] Microcytosis Slight [facility] Work Phone: [phone] Monocytes/100 WBC (Bld) 7 % 2 - 10 % [facility] Work Phone: [phone] Ovalocytes Slight [facility] Work Phone: [phone] Poikilocytes Slight [facility] Work Phone: [phone] RBC (Bld) [#/Vol] ABNORMAL [facility] Work Phone: [phone] Seg Neutrophils 88 % High 40 - 80 % [facility] Work Phone: [phone] TOTAL CELLS COUNTED 100 [facility] Work Phone: [phone] Test Performed by [facility], [address] [place] [address] [facility] Work Phone: [phone] [facility] Work Phone: [phone] Panel InformationOrdered By: Gela Ruiz on 02-11-2021 Interpretation and review of laboratory results Abnormal [facility] Work Phone: 1 Test Performed by [facility], [address] [place] [id number] [facility] Work Phone: 1 [facility] Work Phone: [phone] Procalcitoninon 02-11-2021 Procalcitonin 4.78 ng/mL High 0.00-0.09 [facility] Comment on above: Performed By: #### H EMDF, LACTS, PCAL, LIPA4, CMP3M, MDIFF ####[facility] [id number] [place], [place] Interpretation See Below Normal [facility] Comment on above: Result Comment: PCT <0.50 = Low risk of severe sepsis and/or septic shock.PCT >2.00 = High risk of severe sepsis and/or septic shock. Performed By: #### H EMDF, LACTS, PCAL, LIPA4, CMP3M, MDIFF ####[address] [place], [place] ProcalcitoninOrdered By: Td Nunez on 02-11-2021 Interpretation See Below [facility] Work Phone: 1 Comment on above: PCT <0.50 = Low risk of severe sepsis and/or septic shock. PCT >2.00 = High risk of severe sepsis and/or septic shock. Interpretation and review of laboratory results Abnormal [facility] Work Phone: 1 Procalcitonin 4.78 ng/mL High 0.00 - 0.09 ng/mL [facility] Work Phone: 1 Test Performed by [facility], [address] [place] [address] [facility] Work Phone: 1 [facility] Work Phone: [phone] UrinalysisOrdered By: Gela Ruiz on 02-11-2021 Appearance (U) Turbid Abnormal Clear NA [facility] Work Phone: [phone] Comment on above: . Bacteria, UA Few Abnormal Negative /[HPF] [facility] Work Phone: [phone] Comment on above: . Bilirubin Urine Negative Negative mg/dL [facility] Work Phone: [phone] Comment on above: . Color (U) Light-Yellow Lt. Yellow NA [facility] Work Phone: [phone] Comment on above: . Glucose, Ur Normal Normal (<70) mg/dL [facility] Work Phone: [phone] Comment on above: . Hyaline Casts, UA Negative Negative /[LPF] [facility] Work Phone: [phone] Comment on above: . Interpretation and review of laboratory results Abnormal [facility] Work Phone: [phone] Ketones Ql (U) 60 mg/dL Abnormal Negative [facility] Work Phone: [phone] Comment on above: . LEUKOCYTES, UA 500 Abnormal Negative Nesha/uL [facility] Work Phone: [phone] Comment on above: . Mucous Threads Few Negative /[LPF] [facility] Work Phone: [phone] Comment on above: . Nitrite, Urine Negative Negative NA [facility] Work Phone: [phone] Comment on above: . Occult Blood,Urine 0.03 mg/dL Abnormal Negative [facility] Work Phone: [phone] Comment on above: . pH (U) 6.5 [pH] [facility] Work Phone: [phone] Comment on above: . Protein (U) [Mass/Vol] 30 mg/dL Abnormal Negative [facility] Work Phone: [phone] Comment on above: . RBC, UA 6-10 Abnormal 0 - 2 /[HPF] [facility] Work Phone: [phone] Comment on above: . Specific [place], Urine 1.006 S [facility] Work Phone: [phone] Comment on above: . Squam Epithel, UA Negative 3 - 5 /[HPF] [facility] Work Phone: [phone] Comment on above: . Urobilinogen, Urine Normal Normal (0-1) mg/dL [facility] Work Phone: [phone] Comment on above: . WBC, UA >100 Abnormal 0 - 5 /[HPF] [facility] Work Phone: [phone] Comment on above: . Test Performed by [facility], [address] [place] [id number] [facility] Work Phone: [facility] Work Phone: XR CHEST PORTABLEOrdered By: Gela Ruiz on 02-11-2021 Patient Name: ADDIS TORRES Diagnostic Radiology ACCESSION EXAM DATE/TIME PROCEDURE ORDERING PROVIDER [id number] 02/11/2021 16:30 EDT CR Chest Portable GELA RUIZ Mando CPT code 56793 Reason For Exam (CR Chest Portable) sepsis Report Examination: AP portable chest Clinical Indication: sepsis Comparison: 12/30/2020 Findings: Lungs appear normally inflated. Minimal subsegmental atelectasis at the left costophrenic angle. There is no focal consolidation, effusion, or pulmonary edema identified. The cardiomediastinal silhouette is within normal limits. There is no gross evidence of osseous abnormality. PICC line noted on previous examination on the left has been removed. Impression: No acute cardiopulmonary process. Report Dictated on --- Final --- Dictated: 02/11/2021 4:39 pm Dictating Physician: MD NUÑEZ ANTHONY J Signed Date and Time: 02/11/2021 4:40 pm Signed by: MD NUÑEZ ANTHONY J Transcribed Date and Time: 02/11/2021 4:39 [facility] Work Phone: [facility] - 02/11/2021 4:41 PM EDT Patient Name: ADDIS TORRES Diagnostic Radiology ACCESSION EXAM DATE/TIME PROCEDURE ORDERING PROVIDER [id number] 02/11/2021 16:30 EDT CR Chest Portable GELA RUIZ CPT code 37103 Reason For Exam (CR Chest Portable) sepsis Report Examination: AP portable chest Clinical Indication: sepsis Comparison: 12/30/2020 Findings: Lungs appear normally inflated. Minimal subsegmental atelectasis at the left costophrenic angle. There is no focal consolidation, effusion, or pulmonary edema identified. The cardiomediastinal silhouette is within normal limits. There is no gross evidence of osseous abnormality. PICC line noted on previous examination on the left has been removed. Impression: No acute cardiopulmonary process. Report Dictated on --- Final --- Dictated: 02/11/2021 4:39 pm Dictating Physician: MD NUÑEZ ANTHONY J Signed Date and Time: 02/11/2021 4:40 pm Signed by: MD NUÑEZ ANTHONY J Transcribed Date and Time: 02/11/2021 4:39 [facility] Work Phone: [phone] [facility] Work Phone: [phone] C-Reactive ProteinOrdered By : Peter Carrillo on 01-25-2021 CRP [Mass/Vol] mg/L 0.0 - 6.0 mg/L [facility] Work Phone: Comment on above: . CBCOrdered By: Peter Carrillo on 01-25-2021 Hematocrit (Bld) [Volume fraction] 40.6 % 35.0 - 47.0 % [facility] Work Phone: [phone] Hemoglobin.gastrointesti nal spec 1 Ql (Stl) 13.1 g/dL 11.7 - 16.0 g/dL [facility] Work Phone: Interpretation and review of laboratory results Abnormal [facility] Work Phone: MCH (RBC) [Entitic mass] 26.1 pg 26. 0 - 34.0 pg [facility] Work Phone: [phone] MCHC (RBC) [Mass/Vol] 32.4 % 32.0 - 36.0 % [facility] Work Phone: [phone] MCV (RBC) [Entitic vol] 80.7 fL 79.0 - 98.0 fL [facility] Work Phone: [phone] Platelet distribution width (Bld) [Ratio] 14.7 % High 11.5 - 14.5 % [facility] Work Phone: [phone] Platelet mean volume (Bld) [Entitic vol] 8.8 fL 7.4 - 10.4 fL [facility] Work Phone: [phone] Platelets (Bld) [#/Vol] 161 10*3/uL 140 - 440 10*3/uL [facility] Work Phone: 1 RBC (Bld) [#/Vol] 5.02 10*6/uL 3.80 - 5.20 10*6/uL [facility] Work Phone: WBC (Bld) [#/Vol] 7.9 10*3/uL 3.6 - 10.7 10*3/uL [facility] Work Phone: 1 Test Performed by [facility], [facility] [place] [address] [facility] Work Phone: [facility] Work Phone: 1 D-Dimer, QuantitativeOrdered By: Peter Carrillo on 01-25-2021 D-Dimer, Quant 2.62 mg/L High <0.19 - 0.50 [facility] Work Phone: Comment on above: [employer] D-Dimer va lues of <0.50 mg/L FEU can be used in combination with a pre-test probability model (e.g. Well's) to exclude pulmonary embolism (PE) disease, as well as an aid in the diagnosis of deep vein thrombosis (DVT). Interpretation and review of laboratory results Abnormal [facility] Work Phone: Test Performed by [facility], [address] [place] [address] [facility] Work Phone: [facility] Work Phone: FerritinOrdered By: Peter sands on 01-25-2021 Ferritin [Mass/Vol] 10 ng/mL 8 - 252 ng/mL [facility] Work Phone: Test Performed by [facility], [facility] [place] [address] [facility] Work Phone: [facility] Work Phone: Lactate DehydrogenaseOrdered By: Peter Carrillo on 01-25-2021 Interpretation and review of laboratory results Abnormal [facility] Work Phone: LD 261 U/L High 120 - 246 U/L [facility] Work Phone: Comment on above: Slightly hemolysed, interpret with caution. No Panel InformationOrdered By: Peter Carrillo on 01-25-2021 Test Performed by [facility], [facility] [place] [address] [facility] Work Phone: [facility] Work Phone: C-Reactive ProteinOrdered By : Peter Carrillo on 01-24-2021 CRP [Mass/Vol] mg/L 0.0 - 6.0 mg/L [facility] Work Phone: Comment on above: . Test Performed by [facility], [employer] [place] [address] [facility] Work Phone: [facility] Work Phone: CBCOrdered By: Peter Carrillo on 01-24-2021 Hematocrit (Bld) [Volume fraction] 38.9 % 35.0 - 47.0 % [facility] Work Phone: Hemoglobin.gastrointesti nal spec 1 Ql (Stl) 12.7 g/dL 11.7 - 16.0 g/dL [facility] Work Phone: 1 Interpretation and review of laboratory results Abnormal [facility] Work Phone: MCH (RBC) [Entitic mass] 26.4 pg 26. 0 - 34.0 pg [facility] Work Phone: MCHC (RBC) [Mass/Vol] 32.5 % 32.0 - 36.0 % [facility] Work Phone: MCV (RBC) [Entitic vol] 81.2 fL 79.0 - 98.0 fL [facility] Work Phone: Platelet distribution width (Bld) [Ratio] 15.3 % High 11.5 - 14.5 % [facility] Work Phone: Platelet mean volume (Bld) [Entitic vol] 8.4 fL 7.4 - 10.4 fL [facility] Work Phone: Platelets (Bld) [#/Vol] 186 10*3/uL 140 - 440 10*3/uL [facility] Work Phone: [phone] RBC (Bld) [#/Vol] 4.79 10*6/uL 3.80 - 5.20 10*6/uL [facility] Work Phone: WBC (Bld) [#/Vol] 7.5 10*3/uL 3.6 - 10.7 10*3/uL [facility] Work Phone: 1 Test Performed by [facility], [facility] [place] [address] [facility] Work Phone: [facility] Work Phone: 1 D-Dimer, QuantitativeOrdered By: Peter Carrillo on 01-24-2021 D-Dimer, Quant 0.45 mg/L <0.19 - 0.50 [facility] Work Phone: Comment on above: [employer] D-Dimer va lues of <0.50 mg/L FEU can be used in combination with a pre-test probability model (e.g. Well's) to exclude pulmonary embolism (PE) disease, as well as an aid in the diagnosis of deep vein thrombosis (DVT). Test Performed by [facility], [facility] [place] [address] [facility] Work Phone: [facility] Work Phone: FerritinOrdered By: Peter sands on 01-24-2021 Ferritin [Mass/Vol] 10 ng/mL 8 - 252 ng/mL [facility] Work Phone: Test Performed by [facility], [facility] [place] [address] [facility] Work Phone: [facility] Work Phone: Gastrointestinal Panel by DN AOrdered By: Peter Carrillo on 01-24-2021 Gastrointestinal PCR Panel NEGATIVE: No targets were detected by the [employer] Gastrointestinal PCR Panel. _ The [employer] Gastrointestinal PCR Panel can detect the following targets: Campylobacter, Plesiomonas shigelloides, Salmonella, Vibrio species, Vibrio cholerae, Yersinia enterocolitica, Shiga toxin-producing E coli (STEC) including E coli O157, Enterotoxigenic E coli (ETEC), Shigella/Enteroinvasive E coli (EIEC), Cryptosporidium, Cyclospora cayetanensis, Entamoeba histolytica, Giardia lamblia, Adenovirus F 40/41, Astrovirus, Norovirus GI/GII, Rotavirus A, Sapovirus [facility] Work Phone: Test Performed by [facility], [facility] [place] [address] [facility] Work Phone: [facility] Work Phone: 1 Lactate DehydrogenaseOrdered By: Peter Ahujayasir on 01-24-2021 LD 202 U/L 120 - 246 U/L [facility] Work Phone: 1 Comment on above: Slightly hemolysed, interpret with caution. Test Performed by [facility], [facility] [place] [address] [facility] Work Phone: [facility] Work Phone: 1 C-Reactive ProteinOrdered By : Peter Carrillo on 01-23-2021 CRP [Mass/Vol] mg/L 0.0 - 6.0 mg/L [facility] Work Phone: Comment on above: . CBCOrdered By: Peter Carrillo on 01-23-2021 Hematocrit (Bld) [Volume fraction] 37.2 % 35.0 - 47.0 % [facility] Work Phone: Hemoglobin.gastrointesti nal spec 1 Ql (Stl) 12.2 g/dL 11.7 - 16.0 g/dL [facility] Work Phone: MCH (RBC) [Entitic mass] 26.0 pg 26. 0 - 34.0 pg [facility] Work Phone: MCHC (RBC) [Mass/Vol] 32.7 % 32.0 - 36.0 % [facility] Work Phone: MCV (RBC) [Entitic vol] 79.6 fL 79.0 - 98.0 fL [facility] Work Phone: Platelet distribution width (Bld) [Ratio] 14.5 % 11.5 - 14.5 % [facility] Work Phone: Platelet mean volume (Bld) [Entitic vol] 8.1 fL 7.4 - 10.4 fL [facility] Work Phone: Platelets (Bld) [#/Vol] 185 10*3/uL 140 - 440 10*3/uL [facility] Work Phone: RBC (Bld) [#/Vol] 4.68 10*6/uL 3.80 - 5.20 10*6/uL [facility] Work Phone: WBC (Bld) [#/Vol] 7.3 10*3/uL 3.6 - 10.7 10*3/uL [facility] Work Phone: 1 Test Performed by [facility], [facility] [place] [address] [facility] Work Phone: [facility] Work Phone: D-Dimer, QuantitativeOrdered By: Peter Carrillo on 01-23-2021 D-Dimer, Quant 0.43 mg/L <0.19 - 0.50 [facility] Work Phone: Comment on above: [employer] D-Dimer va lues of <0.50 mg/L FEU can be used in combination with a pre-test probability model (e.g. Well's) to exclude pulmonary embolism (PE) disease, as well as an aid in the diagnosis of deep vein thrombosis (DVT). Test Performed by [facility], [facility] [place] [address] [facility] Work Phone: [facility] Work Phone: FerritinOrdered By: Peter sands on 01-23-2021 Ferritin [Mass/Vol] 12 ng/mL 8 - 252 ng/mL [facility] Work Phone: Test Performed by [facility], [facility] [place] [address] [facility] Work Phone: [facility] Work Phone: Lactate DehydrogenaseOrdered By: Peter Carrillo on 01-23-2021 LD 215 U/L 120 - 246 U/L [facility] Work Phone: NM KIDNEY W FLOW AND FUNCTIO N W WO PHARMACOLOGICAL INTERVENTIONOrdered By: Kodak Ferro on 01-23-2021 Patient Name: ADDIS TORRES Nuclear Medicine ACCESSION EXAM DATE/TIME PROCEDURE ORDERING PROVIDER [id number] 01/23/2021 13:54 EDT NM Kidney Imaging w/ MD FERRO JOSEPH Flow w/ + w/o Pharm KODAK CPT code 92815 Reason For Exam (NM Kidney Imaging w/ Flow w/ + w/o Pharm) Assess for function and drainout of left kidney Report MAG3 DIURETIC RENOGRAM CLINICAL INDICATION: Intractable nausea and vomiting, abdominal pain. Assess function and drainage of left kidney. The patient was given an intravenous dose of 8.1 mCi of technetium 99m MAG3. Flow images over the kidneys were obtained in the posterior projection, followed by delayed images over the following 20 minutes. Activity curves over the kidney were obtained during the flow and parenchymal imaging. The patient was subsequently given an intravenous administration of 40 mg of Lasix and additional post-Lasix imaging of the kidneys was performed for an additional 20 minutes. COMPARISON: Outside CT abdomen and pelvis dated 01/12/2021 FINDINGS: Initial angiographic phase images demonstrate prompt perfusion to both kidneys. Renal size and shape appears relatively symmetric and normal. Both kidneys demonstrate prompt uptake and clearance of tracer from the renal parenchyma. Renal cortical split function appears symmetric, with the left renal cortex contributing 53% of overall renal cortical tracer uptake compared with 47% on the right. At the end of pre-Lasix imaging, there is a small amount of retained tracer within the left renal pelvis. Following administration of intravenous Lasix, this activity clears rapidly. Post-Lasix imaging of the right kidney is normal. IMPRESSION: Renal cortical function appears symmetric and normal. There is a small amount of retained tracer within the nondilated left renal collecting system, which clears rapidly following administration of intravenous Lasix. There is no evidence of hydronephrosis or obstruction. Nuclear Medicine Report Report Dictated on --- Final --- Dictated: 01/23/2021 3:46 pm Dictating Physician: MD FAJARDO JONATHAN R Signed Date and Time: 01/23/2021 3:54 pm Signed by: MD FAJARDO JONATHAN R Transcribed Date and Time: 01/23/2021 3:46 [facility] Work Phone: [facility], [facility] Incoming Radiology Results From [facility] - 01/23/2021 3:55 PM EDT Patient Name: ADDIS TORRES Nuclear Medicine ACCESSION EXAM DATE/TIME PROCEDURE ORDERING PROVIDER [id number] 01/23/2021 13:54 EDT NM Kidney Imaging w/ MD JOSELITO, TYE Flow w/ + w/o Pharm KODAK CPT code 70878 Reason For Exam (NM Kidney Imaging w/ Flow w/ + w/o Pharm) Assess for function and drainout of left kidney Report MAG3 DIURETIC RENOGRAM CLINICAL INDICATION: Intractable nausea and vomiting, abdominal pain. Assess function and drainage of left kidney. The patient was given an intravenous dose of 8.1 mCi of technetium 99m MAG3. Flow images over the kidneys were obtained in the posterior projection, followed by delayed images over the following 20 minutes. Activity curves over the kidney were obtained during the flow and parenchymal imaging. The patient was subsequently given an intravenous administration of 40 mg of Lasix and additional post-Lasix imaging of the kidneys was performed for an additional 20 minutes. COMPARISON: Outside CT abdomen and pelvis dated 01/12/2021 FINDINGS: Initial angiographic phase images demonstrate prompt perfusion to both kidneys. Renal size and shape appears relatively symmetric and normal. Both kidneys demonstrate prompt uptake and clearance of tracer from the renal parenchyma. Renal cortical split function appears symmetric, with the left renal cortex contributing 53% of overall renal cortical tracer uptake compared with 47% on the right. At the end of pre-Lasix imaging, there is a small amount of retained tracer within the left renal pelvis. Following administration of intravenous Lasix, this activity clears rapidly. Post-Lasix imaging of the right kidney is normal. IMPRESSION: Renal cortical function appears symmetric and normal. There is a small amount of retained tracer within the nondilated left renal collecting system, which clears rapidly following administration of intravenous Lasix. There is no evidence of hydronephrosis or obstruction. Nuclear Medicine Report Report Dictated on --- Final --- Dictated: 01/23/2021 3:46 pm Dictating Physician: MD FAJARDO JONATHAN R Signed Date and Time: 01/23/2021 3:54 pm Signed by: MD FAJARDO JONATHAN R Transcribed Date and Time: 01/23/2021 3:46 [facility] Work Phone: 1 [facility] Work Phone: 1 No Panel InformationOrdered By: Peter Carrillo on 01-23-2021 Test Performed by [facility], [facility] [place] [address] [facility] Work Phone: 1 [facility] Work Phone: 1 POCT GlucoseOrdered By: Peter goncalves on 01-23-2021 Glucose [Mass/Vol] 127 mg/dL High 70 - 100 mg/dL [facility] Work Phone: 1 Comment on above: Test performed by gl ucose meter. Results may be 10%-15% lower than serum/plasma values. (CLIA ID [id number]) Interpretation and review of laboratory results Abnormal [facility] Work Phone: 1 Test Performed by [facility], [facility] [place] [address] [facility] Work Phone: 1 [facility] Work Phone: 1 ProcalcitoninOrdered By: Manolo Wilkerson on 01-23-2021 Interpretation See Below [facility] Work Phone: Comment on above: PCT <0.50 = Low risk of severe sepsis and/or septic shock. PCT >2.00 = High risk of severe sepsis and/or septic shock. Procalcitonin <0.10 <0.10 ng/mL [facility] Work Phone: [phone] Test Performed by [facility], [facility] [place] [address] [facility] Work Phone: 1 [facility] Work Phone: 1 C-Reactive ProteinOrdered By : Peter Carrillo on 01-22-2021 CRP [Mass/Vol] mg/L 0.0 - 6.0 mg/L [facility] Work Phone: Comment on above: . CBCOrdered By: Peter Carrillo on 01-22-2021 Hematocrit (Bld) [Volume fraction] 40.3 % 35.0 - 47.0 % [facility] Work Phone: Hemoglobin.gastrointesti nal spec 1 Ql (Stl) 13.0 g/dL 11.7 - 16.0 g/dL [facility] Work Phone: Interpretation and review of laboratory results Abnormal [facility] Work Phone: MCH (RBC) [Entitic mass] 26.2 pg 26. 0 - 34.0 pg [facility] Work Phone: MCHC (RBC) [Mass/Vol] 32.3 % 32.0 - 36.0 % [facility] Work Phone: MCV (RBC) [Entitic vol] 81.0 fL 79.0 - 98.0 fL [facility] Work Phone: Platelet distribution width (Bld) [Ratio] 14.8 % High 11.5 - 14.5 % [facility] Work Phone: Platelet mean volume (Bld) [Entitic vol] 8.1 fL 7.4 - 10.4 fL [facility] Work Phone: Platelets (Bld) [#/Vol] 187 10*3/uL 140 - 440 10*3/uL [facility] Work Phone: RBC (Bld) [#/Vol] 4.98 10*6/uL 3.80 - 5.20 10*6/uL [facility] Work Phone: WBC (Bld) [#/Vol] 5.4 10*3/uL 3.6 - 10.7 10*3/uL [facility] Work Phone: Test Performed by [facility], [address] [place] [address] [facility] Work Phone: [facility] Work Phone: Comprehensive Metabolic Pane l w/ Reflex to MGOrdered By: Peter Carrillo on 01-22-2021 Albumin [Mass/Vol] 4.4 g/dL 3.5 - 5.0 g/dL [facility] Work Phone: ALP (Bld) [Catalytic activity/Vol] 41 U/L 38 - 126 U/L [facility] Work Phone: ALT [Catalytic activity/Vol] 17 U/L 0 - 34 U/L [facility] Work Phone: Comment on above: The ALT test is perf ormed by an updated assay method. Please note that the reference intervals have been changed and are now sex specific. Anion gap [Moles/Vol] 12 mmol/L 3 - 13 mmol/L [facility] Work Phone: AST [Catalytic activity/Vol] 26 U/L 15 - 46 U/L [facility] Work Phone: Bilirubin [Mass/Vol] 0.4 mg/dL 0.2 - 1 .3 mg/dL [facility] Work Phone: [phone] Calcium [Mass/Vol] 9.6 mg/dL 8.4 - 10. 4 mg/dL [facility] Work Phone: Chloride [Moles/Vol] 106 mmol/L 98 - 10 7 mmol/L [facility] Work Phone: CO2 [Moles/Vol] 24 mmol/L 22 - 30 mmol/L [facility] Work Phone: Creatinine [Mass/Vol] 0.61 mg/dL 0.52 - 1.25 mg/dL [facility] Work Phone: EGFR IF NonAfrican Djiboutian >90.0 >60 mL/min [facility] Work Phone: Comment on above: KDIGO guidelines pro vide the following GFR categories: Stage GFR(ml/min/1.73 m2) Terms G1 >=90 Normal or high G2 60-89 Mildly decreased* G3a 45-59 Mildly to moderately decreased G3b 30-44 Moderately to severely decreased G4 15-29 Severely decreased G5 <15 Kidney failure *Relative to young adult level. In the absence of evidence of kidney damage, neither GFR category G1 nor G2 fulfill the criteria for CKD. The CKD-EPI equation is validated in individuals 18 years of age and older. Currently the best equation for estimating glomerular filtration rate (GFR) from serum creatinine in children is the Bedside Boyer equation. It is less accurate in patients with extremes of muscle mass, restriction of dietary protein, ingestion of creatine, extra-renal metabolism of creatinine, or treatment with medications that affect renal tubular creatinine secretion. Free PSA/Total PSA [Mass fraction] 7.5 g/dL 6.3 - 8.2 g/dL [facility] Work Phone: GFR/1.73 sq M.predicted among blacks MDRD (S/P/Bld) [Vol rate/Area] mL/min/{1.73_m2} >60 mL/min [facility] Work Phone: Glucose [Mass/Vol] 68 mg/dL Low 70 - 100 mg/dL [facility] Work Phone: Interpretation and review of laboratory results Abnormal [facility] Work Phone: Potassium [Moles/Vol] 3.6 mmol/L 3.5 - 5.1 mmol/L [facility] Work Phone: Sodium [Moles/Vol] 142 mmol/L 135 - 145 mmol/L [facility] Work Phone: Urea nitrogen (BldV) [Mass/Vol] 2 mg/dL Low 7 - 20 mg/dL [facility] Work Phone: D-Dimer, QuantitativeOrdered By: Peter Carrillo on 01-22-2021 D-Dimer, Quant 0.55 mg/L High <0.19 - 0.50 [facility] Work Phone: Comment on above: [employer] D-Dimer va lues of <0.50 mg/L FEU can be used in combination with a pre-test probability model (e.g. Well's) to exclude pulmonary embolism (PE) disease, as well as an aid in the diagnosis of deep vein thrombosis (DVT). Interpretation and review of laboratory results Abnormal [facility] Work Phone: Test Performed by [facility], [address] [place] [address] [facility] Work Phone: [facility] Work Phone: ) FerritinOrdered By: Peter Munoz zahra on 01-22-2021 Ferritin [Mass/Vol] 13 ng/mL 8 - 252 ng/mL [facility] Work Phone: 1 Test Performed by [facility], [address] [place] [address] [facility] Work Phone: 1) [facility] Work Phone: 1) Lactate DehydrogenaseOrdered By: Peter Carrillo on 01-22-2021 LD 193 U/L 120 - 246 U/L [facility] Work Phone: 1) No Panel InformationOrdered By: Peter Munozzahra on 01-22-2021 Test Performed by [facility], [address] [place] [address] [facility] Work Phone: 1) [facility] Work Phone: 1 Respiratory Panel, Molecular , with COVID-19 (Restricted: peds pts or suitable admitted adults)Ordered By: Peter Carrillo on 01-22-2021 Respiratory Panel Molecular, with COVID NEGATIVE: No targets were detected by the [employer] Upper Respiratory Pathogens PCR Panel. _ Expected Result: Not Detected The [employer] Upper Respiratory Pathogens PCR Panel can detect the following targets: SARS-CoV-2, Adenovirus, Coronavirus 229E, Coronavirus HKU1, Coronavirus NL63, Coronavirus OC43, Human Metapneumovirus, Human Rhinovirus/Enterovirus, Influenza A, Influenza B, Parainfluenza Virus 1, Parainfluenza Virus 2, Parainfluenza Virus 3, Parainfluenza Virus 4, Respiratory Syncytial Virus, Bordetella pertussis, Bordetella parapertussis, Chlamydia pneumoniae, Mycoplasma pneumoniae. Negative results do not preclude SARS-CoV-2 infection and should not be used as the sole basis for treatment or other patient management decisions. This assay was developed by [employer] and distributed under an Emergency Use Authorization (EUA) granted by the FDA for the qualitative detection of SARS-CoV-2 nucleic acid. Provider and patient fact sheets can be found at https://www.fda.gov/media /441753/download and https://www.fda.gov/media /046099/download. [facility] Work Phone: [phone] Test Performed by [facility], [address] [place] [address] [facility] Work Phone: [facility] Work Phone: Culture, UrineOrdered By: Urvashi Roe on 01-14-2021 Bacteria identified Cx Nom (U) No growth (<1,000 CFU/ml). [facility] Work Phone: Test Performed by [facility], [address] [place] [address] [facility] Work Phone: CBCOrdered By: Donavan Roe on 01-13-2021 Hematocrit (Bld) [Volume fraction] 33.9 % Low 35.0 - 47.0 % [facility] Work Phone: Hemoglobin.gastrointesti nal spec 1 Ql (Stl) 11.4 g/dL Low 11.7 - 16.0 g/dL [facility] Work Phone: Interpretation and review of laboratory results Abnormal [facility] Work Phone: MCH (RBC) [Entitic mass] 26.7 pg 26. 0 - 34.0 pg [facility] Work Phone: MCHC (RBC) [Mass/Vol] 33.6 % 32.0 - 36.0 % [facility] Work Phone: MCV (RBC) [Entitic vol] 79.6 fL 79.0 - 98.0 fL [facility] Work Phone: Platelet distribution width (Bld) [Ratio] 15.3 % High 11.5 - 14.5 % [facility] Work Phone: Platelet mean volume (Bld) [Entitic vol] 7.5 fL 7.4 - 10.4 fL [facility] Work Phone: Platelets (Bld) [#/Vol] 254 10*3/uL 140 - 440 10*3/uL [facility] Work Phone: RBC (Bld) [#/Vol] 4.26 10*6/uL 3.80 - 5.20 10*6/uL [facility] Work Phone: 1( WBC (Bld) [#/Vol] 6.8 10*3/uL 3.6 - 10.7 10*3/uL [facility] Work Phone: Test Performed by [facility], [address] [place] [id number] [facility] Work Phone: Comprehensive Metabolic Pane lOrdered By: Donavan Roe on 01-13-2021 Albumin [Mass/Vol] 3.9 g/dL 3.5 - 5.0 g/dL [facility] Work Phone: ALP (Bld) [Catalytic activity/Vol] 38 U/L 38 - 126 U/L [facility] Work Phone: ALT [Catalytic activity/Vol] 17 U/L 0 - 34 U/L [facility] Work Phone: Comment on above: The ALT test is perf ormed by an updated assay method. Please note that the reference intervals have been changed and are now sex specific. Anion gap [Moles/Vol] 7 mmol/L 3 - 13 mmol/L [facility] Work Phone: AST [Catalytic activity/Vol] 21 U/L 15 - 46 U/L [facility] Work Phone: Bilirubin [Mass/Vol] 0.3 mg/dL 0.2 - 1 .3 mg/dL [facility] Work Phone: Calcium [Mass/Vol] 8.7 mg/dL 8.4 - 10. 4 mg/dL [facility] Work Phone: 222 Chloride [Moles/Vol] 107 mmol/L 98 - 10 7 mmol/L [facility] Work Phone: 222 CO2 [Moles/Vol] 25 mmol/L 22 - 30 mmol/L [facility] Work Phone: Creatinine [Mass/Vol] 0.54 mg/dL 0.52 - 1.25 mg/dL [facility] Work Phone: ) EGFR IF NonAfrican Djib[place]ian >90.0 >60 mL/min [facility] Work Phone: Comment on above: KDIGO guidelines pro vide the following GFR categories: Stage GFR(ml/min/1.73 m2) Terms G1 >=90 Normal or high G2 60-89 Mildly decreased* G3a 45-59 Mildly to moderately decreased G3b 30-44 Moderately to severely decreased G4 15-29 Severely decreased G5 <15 Kidney failure *Relative to young adult level. In the absence of evidence of kidney damage, neither GFR category G1 nor G2 fulfill the criteria for CKD. The CKD-EPI equation is validated in individuals 18 years of age and older. Currently the best equation for estimating glomerular filtration rate (GFR) from serum creatinine in children is the Bedside Boyer equation. It is less accurate in patients with extremes of muscle mass, restriction of dietary protein, ingestion of creatine, extra-renal metabolism of creatinine, or treatment with medications that affect renal tubular creatinine secretion. Free PSA/Total PSA [Mass fraction] 6.7 g/dL 6.3 - 8.2 g/dL [facility] Work Phone: GFR/1.73 sq M.predicted among blacks MDRD (S/P/Bld) [Vol rate/Area] mL/min/{1.73_m2} >60 mL/min [facility] Work Phone: Glucose [Mass/Vol] 87 mg/dL 70 - 100 mg/dL [facility] Work Phone: Potassium [Moles/Vol] 3.8 mmol/L 3.5 - 5.1 mmol/L [facility] Work Phone: Sodium [Moles/Vol] 139 mmol/L 135 - 145 mmol/L [facility] Work Phone: Urea nitrogen (BldV) [Mass/Vol] 9 mg/dL 7 - 20 mg/dL [facility] Work Phone: Test Performed by [facility], [address] [place] [id number] [facility] Work Phone: PROTIME INROrdered By: Donavan Roe on 01-13-2021 INR Coag (Bld) [Relative time] 1.1 {INR} [facility] Work Phone: Comment on above: Recommended Anticoag ulant Therapy: SEE BELOW ----- INR of 2.0 - 3.0 : - Prophylaxis of Venous Thrombosis (high-risk surgery) - Treatment of Venous Thrombosis - Treatment of Pulmonary Embolism (Includes tissue heart valves, Acute Myocardial Infarction to prevent systemic embolism, Valvular Heart Disease, and Atrial Fibrillation) ----- INR of 2.5 - 3.5 : - Mechanical Prosthetic Valves (high risk) - If oral anticoagulant therapy is used to prevent Myocardial Infarction PT Coag (PPP) [Time] 11.5 s 9.0 - 1 2.0 s [facility] Work Phone: [phone] Comment on above: . Test Performed by [facility], [address] [place] [id number] [facility] Work Phone: [phone] UrinalysisOrdered By: Donavan Roe on 01-13-2021 Appearance (U) Clear Clear NA [facility] Work Phone: [phone] Comment on above: . Bacteria, UA Negative Negative /[HPF] [facility] Work Phone: [phone] Comment on above: . Bilirubin Urine Negative Negative mg/dL [facility] Work Phone: [phone] Comment on above: . Color (U) Light-Yellow Lt. Yellow NA [facility] Work Phone: [phone] Comment on above: . Glucose, Ur Normal Normal (<70) mg/dL [facility] Work Phone: [phone] Comment on above: . Interpretation and review of laboratory results Abnormal [facility] Work Phone: [phone] Ketones Ql (U) Negative Negative mg/dL [facility] Work Phone: [phone] Comment on above: . LEUKOCYTES, UA 75 Abnormal Negative Nesha/uL [facility] Work Phone: [phone] Comment on above: . Mucous Threads Few Negative /[LPF] [facility] Work Phone: [phone] Comment on above: . Nitrite, Urine Negative Negative NA [facility] Work Phone: [phone] Comment on above: . Occult Blood,Urine 0.03 mg/dL Abnormal Negative [facility] Work Phone: [phone] Comment on above: . pH (U) 6.0 [pH] [facility] Work Phone: [phone] Comment on above: . RBC, UA 3-5 Abnormal 0 - 2 /[HPF] [facility] Work Phone: [phone] Comment on above: . Specific [place], Urine 1.023 S [facility] Work Phone: [phone] Comment on above: . Squam Epithel, UA 0-2 3 - 5 /[HPF] [facility] Work Phone: [phone] Comment on above: . Total Protein, Urine Negative Negativ e mg/dL [facility] Work Phone: [phone] Comment on above: . Urobilinogen, Urine Normal Normal (0-1) mg/dL [facility] Work Phone: [phone] Comment on above: . WBC, UA 6-10 Abnormal 0 - 5 /[HPF] [facility] Work Phone: [phone] Comment on above: . Test Performed by [facility], [address] [place] [address] [facility] Work Phone: [phone] BASIC METABOLIC PANELOrdered By: Jen Canas on 01-03-2021 Anion gap [Moles/Vol] 15 mmol/L High 3 - 13 mmol/L [facility] Work Phone: [phone] Calcium [Mass/Vol] 9.9 mg/dL 8.4 - 10. 4 mg/dL [facility] Work Phone: [phone] Chloride [Moles/Vol] 101 mmol/L 98 - 10 7 mmol/L [facility] Work Phone: [phone] CO2 [Moles/Vol] 21 mmol/L Low 22 - 30 mmol/L [facility] Work Phone: [phone] Creatinine [Mass/Vol] 0.71 mg/dL 0.52 - 1.25 mg/dL [facility] Work Phone: [phone] EGFR IF NonAfrican Djiboutian >90.0 >60 mL/min [facility] Work Phone: [phone] Comment on above: KDIGO guidelines pro vide the following GFR categories: Stage GFR(ml/min/1.73 m2) Terms G1 >=90 Normal or high G2 60-89 Mildly decreased* G3a 45-59 Mildly to moderately decreased G3b 30-44 Moderately to severely decreased G4 15-29 Severely decreased G5 <15 Kidney failure *Relative to young adult level. In the absence of evidence of kidney damage, neither GFR category G1 nor G2 fulfill the criteria for CKD. The CKD-EPI equation is validated in individuals 18 years of age and older. Currently the best equation for estimating glomerular filtration rate (GFR) from serum creatinine in children is the Bedside Boyer equation. It is less accurate in patients with extremes of muscle mass, restriction of dietary protein, ingestion of creatine, extra-renal metabolism of creatinine, or treatment with medications that affect renal tubular creatinine secretion. GFR/1.73 sq M.predicted among blacks MDRD (S/P/Bld) [Vol rate/Area] mL/min/{1.73_m2} >60 mL/min [facility] Work Phone: 222 Glucose [Mass/Vol] 91 mg/dL 70 - 100 mg/dL [facility] Work Phone: 222 Interpretation and review of laboratory results Abnormal [facility] Work Phone: 222 Potassium [Moles/Vol] 3.7 mmol/L 3.5 - 5.1 mmol/L [facility] Work Phone: 222 Sodium [Moles/Vol] 137 mmol/L 135 - 145 mmol/L [facility] Work Phone: 222 Urea nitrogen (BldV) [Mass/Vol] 11 mg/dL 7 - 20 mg/dL [facility] Work Phone: 222 CBC WITH AUTO DIFFERENTIALOr dered By: Jen Canas on 01-03-2021 Absolute Baso # 0.1 10*3/uL 0.0 - 0.2 10*3/uL [facility] Work Phone: 222 Absolute Neut # 7.8 10*3/uL High 1.8 - 7.0 10*3/uL [facility] Work Phone: 222 Basophils/100 WBC (Bld) 1.2 % 0.0 - 2.0 % [facility] Work Phone: 222 Eosinophils (Bld) [#/Vol] 0.4 10*3/uL 0.0 - 0.5 10*3/uL [facility] Work Phone: 222 Eosinophils/100 WBC (Bld) 3.2 % 1.0 - 6.0 % [facility] Work Phone: [phone] Granulocytes/100 WBC (Bld) 68.2 % 40.0 - 80.0 % [facility] Work Phone: 1) 222 Hematocrit (Bld) [Volume fraction] 38.3 % 35.0 - 47.0 % [facility] Work Phone: 1 222 Hemoglobin.gastrointesti nal spec 1 Ql (Stl) 12.8 g/dL 11.7 - 16.0 g/dL [facility] Work Phone: 1) 222 Interpretation and review of laboratory results Abnormal [facility] Work Phone: 1) 222 Lymphocytes (Bld) [#/Vol] 2.5 10*3/uL 1.0 - 4.3 10*3/uL [facility] Work Phone: 1) 222 Lymphocytes/100 WBC (Bld) 21.7 % 20.0 - 40.0 % [facility] Work Phone: ) 222 MCH (RBC) [Entitic mass] 26.2 pg 26. 0 - 34.0 pg [facility] Work Phone: ) 222 MCHC (RBC) [Mass/Vol] 33.4 % 32.0 - 36.0 % [facility] Work Phone: 1) 222 MCV (RBC) [Entitic vol] 78.6 fL Low 79.0 - 98.0 fL [facility] Work Phone: 222 Monocytes (Bld) [#/Vol] 0.7 10*3/uL 0.0 - 0.8 10*3/uL [facility] Work Phone: 1) 222 Monocytes/100 WBC (Bld) 5.7 % 2.0 - 10.0 % [facility] Work Phone: 1) 222 Platelet distribution width (Bld) [Ratio] 16.6 % High 11.5 - 14.5 % [employer] Phone: ) 222 Platelet mean volume (Bld) [Entitic vol] 6.8 fL Low 7.4 - 10.4 fL [facility] Work Phone: ) 222 Platelets (Bld) [#/Vol] 345 10*3/uL 140 - 440 10*3/uL [facility] Work Phone: 1 222 RBC (Bld) [#/Vol] 4.87 10*6/uL 3.80 - 5.20 10*6/uL [facility] Work Phone: WBC (Bld) [#/Vol] 11.4 10*3/uL High 3.6 - 10.7 10*3/uL [facility] Work Phone: 1 Test Performed by [facility], [facility] [place] [address] [facility] Work Phone: MagnesiumOrdered By: Jen iraheta on 01-03-2021 Magnesium [Mass/Vol] 2.0 mg/dL 1.6 - 2 .3 mg/dL [facility] Work Phone: No Panel InformationOrdered By: Jen Canas on 01-03-2021 Test Performed by [facility], [employer] [place] [address] [facility] Work Phone: PhosphorusOrdered By: Jen gomez on 01-03-2021 Phosphate [Mass/Vol] 4.3 mg/dL 2.5 - 4 .5 mg/dL [facility] Work Phone: CBC WITH AUTO DIFFERENTIALOr dered By: Jen Canas on 01-02-2021 Absolute Baso # 0.1 10*3/uL 0.0 - 0.2 10*3/uL [facility] Work Phone: 1 Absolute Neut # 8.5 10*3/uL High 1.8 - 7.0 10*3/uL [facility] Work Phone: 222 Basophils/100 WBC (Bld) 0.5 % 0.0 - 2.0 % [facility] Work Phone: 222 Eosinophils (Bld) [#/Vol] 0.2 10*3/uL 0.0 - 0.5 10*3/uL [facility] Work Phone: 222 Eosinophils/100 WBC (Bld) 2.0 % 1.0 - 6.0 % [facility] Work Phone: 222 Granulocytes/100 WBC (Bld) 74.9 % 40.0 - 80.0 % [facility] Work Phone: 1) 222 Hematocrit (Bld) [Volume fraction] 34.7 % Low 35.0 - 47.0 % [facility] Work Phone: 1) 222 Hemoglobin.gastrointesti nal spec 1 Ql (Stl) 11.6 g/dL Low 11.7 - 16.0 g/dL [facility] Work Phone: 1) 222 Interpretation and review of laboratory results Abnormal [facility] Work Phone: 1) 222 Lymphocytes (Bld) [#/Vol] 1.7 10*3/uL 1.0 - 4.3 10*3/uL [facility] Work Phone: 1) 222 Lymphocytes/100 WBC (Bld) 15.1 % Low 20.0 - 40.0 % [facility] Work Phone: 222 MCH (RBC) [Entitic mass] 26.5 pg 26. 0 - 34.0 pg [facility] Work Phone: ) 222 MCHC (RBC) [Mass/Vol] 33.4 % 32.0 - 36.0 % [facility] Work Phone: 1) 222 MCV (RBC) [Entitic vol] 79.2 fL 79.0 - 98.0 fL [facility] Work Phone: ) 222 Monocytes (Bld) [#/Vol] 0.8 10*3/uL 0.0 - 0.8 10*3/uL [facility] Work Phone: 1) 222 Monocytes/100 WBC (Bld) 7.5 % 2.0 - 10.0 % [facility] Work Phone: 1) 222 Platelet distribution width (Bld) [Ratio] 17.0 % High 11.5 - 14.5 % [facility] Work Phone: 1) 222 Platelet mean volume (Bld) [Entitic vol] 7.0 fL Low 7.4 - 10.4 fL [facility] Work Phone: ) 222 Platelets (Bld) [#/Vol] 283 10*3/uL 140 - 440 10*3/uL [facility] Work Phone: ) 222 RBC (Bld) [#/Vol] 4.38 10*6/uL 3.80 - 5.20 10*6/uL [facility] Work Phone: 1 222 WBC (Bld) [#/Vol] 11.3 10*3/uL High 3.6 - 10.7 10*3/uL [facility] Work Phone: ) 222 Test Performed by [facility], [facility] [place] [address] [facility] Work Phone: 1 RBC MORPHOLOGYOrdered By: Ab miguel Canas on 01-02-2021 Anisocytosis Ql (Bld) Slight [facility] Work Phone: () 222 Elliptocytes Slight [facility] Work Phone: () 222 Microcytosis Slight [facility] Work Phone: 222 Ovalocytes Slight [facility] Work Phone: ) 222 Poikilocytes Slight [facility] Work Phone: ) RBC (Bld) [#/Vol] ABNORMAL [facility] Work Phone: Test Performed by [facility], [facility] [place] [address] [facility] Work Phone: BASIC METABOLIC PANELOrdered By: Jen Canas on 01-01-2021 Anion gap [Moles/Vol] 10 mmol/L 3 - 13 mmol/L [facility] Work Phone: 222 Calcium [Mass/Vol] 9.7 mg/dL 8.4 - 10. 4 mg/dL [facility] Work Phone: 222 Chloride [Moles/Vol] 102 mmol/L 98 - 10 7 mmol/L [facility] Work Phone: 222 CO2 [Moles/Vol] 24 mmol/L 22 - 30 mmol/L [facility] Work Phone: ) 222 Creatinine [Mass/Vol] 0.73 mg/dL 0.52 - 1.25 mg/dL [facility] Work Phone: ) 222 EGFR IF NonAfrican [place]iboutian >90.0 >60 mL/min [facility] Work Phone: ) Comment on above: KDIGO guidelines pro vide the following GFR categories: Stage GFR(ml/min/1.73 m2) Terms G1 >=90 Normal or high G2 60-89 Mildly decreased* G3a 45-59 Mildly to moderately decreased G3b 30-44 Moderately to severely decreased G4 15-29 Severely decreased G5 <15 Kidney failure *Relative to young adult level. In the absence of evidence of kidney damage, neither GFR category G1 nor G2 fulfill the criteria for CKD. The CKD-EPI equation is validated in individuals 18 years of age and older. Currently the best equation for estimating glomerular filtration rate (GFR) from serum creatinine in children is the Bedside Boyer equation. It is less accurate in patients with extremes of muscle mass, restriction of dietary protein, ingestion of creatine, extra-renal metabolism of creatinine, or treatment with medications that affect renal tubular creatinine secretion. GFR/1.73 sq M.predicted among blacks MDRD (S/P/Bld) [Vol rate/Area] mL/min/{1.73_m2} >60 mL/min [facility] Work Phone: 222 Glucose [Mass/Vol] 89 mg/dL 70 - 100 mg/dL [facility] Work Phone: 222 Potassium [Moles/Vol] 3.7 mmol/L 3.5 - 5.1 mmol/L [facility] Work Phone: 222 Sodium [Moles/Vol] 136 mmol/L 135 - 145 mmol/L [facility] Work Phone: 222 Urea nitrogen (BldV) [Mass/Vol] 11 mg/dL 7 - 20 mg/dL [facility] Work Phone: 222 CBC WITH AUTO DIFFERENTIALOr dered By: Jen Canas on 01-01-2021 Absolute Baso # 0.1 10*3/uL 0.0 - 0.2 10*3/uL [facility] Work Phone: 222 Absolute Neut # 7.4 10*3/uL High 1.8 - 7.0 10*3/uL [facility] Work Phone: 222 Basophils/100 WBC (Bld) 0.5 % 0.0 - 2.0 % [facility] Work Phone: 222 Eosinophils (Bld) [#/Vol] 0.2 10*3/uL 0.0 - 0.5 10*3/uL [facility] Work Phone: 222 Eosinophils/100 WBC (Bld) 2.4 % 1.0 - 6.0 % [facility] Work Phone: [phone] Granulocytes/100 WBC (Bld) 74.7 % 40.0 - 80.0 % [facility] Work Phone: 1) 222 Hematocrit (Bld) [Volume fraction] 36.4 % 35.0 - 47.0 % [facility] Work Phone: 1) 222 Hemoglobin.gastrointesti nal spec 1 Ql (Stl) 12.3 g/dL 11.7 - 16.0 g/dL [facility] Work Phone: [phone] Interpretation and review of laboratory results Abnormal [email or web address] Work Phone: ) 222 Lymphocytes (Bld) [#/Vol] 1.7 10*3/uL 1.0 - 4.3 10*3/uL [facility] Work Phone: 1) 222 Lymphocytes/100 WBC (Bld) 17.0 % Low 20.0 - 40.0 % [facility] Work Phone: ) 222 MCH (RBC) [Entitic mass] 26.9 pg 26. 0 - 34.0 pg [facility] Work Phone: [phone] MCHC (RBC) [Mass/Vol] 33.7 % 32.0 - 36.0 % [facility] Work Phone: [phone] MCV (RBC) [Entitic vol] 79.9 fL 79.0 - 98.0 fL [facility] Work Phone: ) 222 Monocytes (Bld) [#/Vol] 0.5 10*3/uL 0.0 - 0.8 10*3/uL [facility] Work Phone: [phone] Monocytes/100 WBC (Bld) 5.4 % 2.0 - 10.0 % [facility] Work Phone: [phone] Platelet distribution width (Bld) [Ratio] 16.7 % High 11.5 - 14.5 % [facility] Work Phone: [phone] Platelet mean volume (Bld) [Entitic vol] 8.3 fL 7.4 - 10.4 fL [facility] Work Phone: [phone] Platelets (Bld) [#/Vol] 326 10*3/uL 140 - 440 10*3/uL [facility] Work Phone: RBC (Bld) [#/Vol] 4.56 10*6/uL 3.80 - 5.20 10*6/uL [facility] Work Phone: [phone] WBC (Bld) [#/Vol] 9.9 10*3/uL 3.6 - 10.7 10*3/uL [facility] Work Phone: [phone] Test Performed by 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 Requested By: JEN CANAS Order Number: [id number] Reading MD: Chin Rogers Measurements Intervals [place] Rate: 111 P: 54 SC: 154 QRS: 66 QRSD: 94 T: 26 QT: 308 QTc: 419 Interpretive Statements Sinus tachycardia Electronically Signed On 01-01-2021 20:57:58 EDT by Chin Rogers [facility] Work Phone: [place], [facility] Incoming Cardiology Results From [facility] - 01/01/2021 8:59 PM EDT [facility]: 2020-12[facility]31 Pat Name: ADDIS TORRES Department: 1A7E Room: 1705 Gender: F 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, [address] [place] [id number] [facility] Work Phone: PhosphorusOrdered By: Jen gomez on 01-01-2021 Phosphate [Mass/Vol] 4.5 mg/dL 2.5 - 4 .5 mg/dL [facility] Work Phone: CT ABDOMEN PELVIS W WO CONTR ASTOrdered By: Franco Adame on 12-31-2020 Patient Name: ADDIS TORRES Computed Tomography ACCESSION EXAM DATE/TIME PROCEDURE ORDERING PROVIDER [id number] 12/31/2020 02:[address] Abdomen/Pelvis w/ DO ADAME KATHERINE I + w/o Contrast CPT code 45610 Q9967 Reason For Exam (CT Abdomen/Pelvis w/ + w/o Contrast) Post-op pain Report CT ABDOMEN AND PELVIS WITH CONTRAST CLINICAL INDICATION: Endometrial carcinoma. Postoperative pain with nausea and vomiting TECHNIQUE: Transaxial sequence through the abdomen and pelvis with 3 mm reconstruction following oral contrast with dynamic intravenous infusion of 75 mL of 370 mg% contrast media. Coronal and sagittal reconstructions included. Dose reduction was employed with automated exposure control. COMPARISON: Five days ago FINDINGS: Chest base: Normal. Liver: Normal size and contour. No focal lesion. Biliary tree: Normal caliber. Spleen: Normal. Adrenals: Normal. Pancreas: Normal. Kidneys: Symmetric contrast enhancement is noted. There is a left ureteral stent extending to the urinary bladder. There is however, some stranding in the retroperitoneum surrounding the lower ureter. No hydronephrosis is noted. No focal lesion. Free fluid: None. Retroperitoneal/mesenteri c lymphadenopathy: None. Aorta: Normal caliber. Bowel: Normal caliber. Normal appendix Abdominal wall: Normal. Pelvic organs/viscera: There is a decreased amount of presacral Computed Tomography Report ill-defined increased attenuation and fluid attenuation since five days ago. Relatively large ovaries are noted. The uterus is absent. Pelvic lymphadenopathy: None. Osseous structures: Normal. IMPRESSION: 1. Decreased amount of fluid and stranding in the retroperitoneum with a left ureteral stent remains in place 2. No new abnormality. Report Dictated on Workstation: [id number]-[email or web address] --- Final --- Dictated: 12/31/2020 3:28 am Dictating Physician: MD OSBORN JEFFREY Signed Date and Time: 12/31/2020 3:44 am Signed by: MD OSBORN JEFFREY Transcribed Date and Time: 12/31/2020 3:28 [facility] Work Phone: [facility], [facility] In[facility] Results From [facility] - 12/31/2020 3:45 AM EDT Patient Name: ADDIS TORRES Computed Tomography ACCESSION EXAM DATE/TIME PROCEDURE ORDERING PROVIDER [id number] 12/31/2020 02:[address] Abdomen/Pelvis w/ DO ADAME KATHERINE I + w/o Contrast CPT code 88525 Q9967 Reason For Exam (CT Abdomen/Pelvis w/ + w/o Contrast) Post-op pain Report CT ABDOMEN AND PELVIS WITH CONTRAST CLINICAL INDICATION: Endometrial carcinoma. Postoperative pain with nausea and vomiting TECHNIQUE: Transaxial sequence through the abdomen and pelvis with 3 mm reconstruction following oral contrast with dynamic intravenous infusion of 75 mL of 370 mg% contrast media. Coronal and sagittal reconstructions included. Dose reduction was employed with automated exposure control. COMPARISON: Five days ago FINDINGS: Chest base: Normal. Liver: Normal size and contour. No focal lesion. Biliary tree: Normal caliber. Spleen: Normal. Adrenals: Normal. Pancreas: Normal. Kidneys: Symmetric contrast enhancement is noted. There is a left ureteral stent extending to the urinary bladder. There is however, some stranding in the retroperitoneum surrounding the lower ureter. No hydronephrosis is noted. No focal lesion. Free fluid: None. Retroperitoneal/mesenteri c lymphadenopathy: None. Aorta: Normal caliber. Bowel: Normal caliber. Normal appendix Abdominal wall: Normal. Pelvic organs/viscera: There is a decreased amount of presacral Computed Tomography Report ill-defined increased attenuation and fluid attenuation since five days ago. Relatively large ovaries are noted. The uterus is absent. Pelvic lymphadenopathy: None. Osseous structures: Normal. IMPRESSION: 1. Decreased amount of fluid and stranding in the retroperitoneum with a left ureteral stent remains in place 2. No new abnormality. Report Dictated on Workstation: [id number] --- Final --- Dictated: 12/31/2020 3:28 am Dictating Physician: MD OSBORN JEFFREY Signed Date and Time: 12/31/2020 3:44 am Signed by: MD OSBORN JEFFREY Transcribed Date and Time: 12/31/2020 3:28 [facility] Work Phone: [phone] CBC Auto DifferentialOrdered By: Franco Adame on 12-30-2020 Absolute Baso # 0.1 10*3/uL 0.0 - 0.2 10*3/uL [facility] Work Phone: [phone] Absolute Neut # 8.9 10*3/uL High 1.8 - 7.0 10*3/uL [facility] Work Phone: [phone] Basophils/100 WBC (Bld) 0.6 % 0.0 - 2.0 % [facility] Work Phone: [phone] Eosinophils (Bld) [#/Vol] 0.3 10*3/uL 0.0 - 0.5 10*3/uL [facility] Work Phone: [phone] Eosinophils/100 WBC (Bld) 2.4 % 1.0 - 6.0 % [facility] Work Phone: [phone] Granulocytes/100 WBC (Bld) 77.6 % 40.0 - 80.0 % [facility] Work Phone: [phone] Hematocrit (Bld) [Volume fraction] 36.4 % 35.0 - 47.0 % [facility] Work Phone: [phone] Hemoglobin.gastrointesti nal spec 1 Ql (Stl) 11.9 g/dL 11.7 - 16.0 g/dL [facility] Work Phone: [phone] Interpretation and review of laboratory results Abnormal [facility] Work Phone: [phone] Lymphocytes (Bld) [#/Vol] 1.7 10*3/uL 1.0 - 4.3 10*3/uL [facility] Work Phone: 1) 222 Lymphocytes/100 WBC (Bld) 14.5 % Low 20.0 - 40.0 % [facility] Work Phone: 1() 222 MCH (RBC) [Entitic mass] 26.0 pg 26. 0 - 34.0 pg [facility] Work Phone: () 222 MCHC (RBC) [Mass/Vol] 32.6 % 32.0 - 36.0 % [facility] Work Phone: MCV (RBC) [Entitic vol] 79.9 fL 79.0 - 98.0 fL [facility] Work Phone: 1() 222 Monocytes (Bld) [#/Vol] 0.6 10*3/uL 0.0 - 0.8 10*3/uL [facility] Work Phone: 1) 222 Monocytes/100 WBC (Bld) 4.9 % 2.0 - 10.0 % [facility] Work Phone: Platelet distribution width (Bld) [Ratio] 17.7 % High 11.5 - 14.5 % [facility] Work Phone: ( 222 Platelet mean volume (Bld) [Entitic vol] 6.8 fL Low 7.4 - 10.4 fL [facility] Work Phone: ) 222 Platelets (Bld) [#/Vol] 336 10*3/uL 140 - 440 10*3/uL [facility] Work Phone: () 222 RBC (Bld) [#/Vol] 4.55 10*6/uL 3.80 - 5.20 10*6/uL [facility] Work Phone: 1() 222 WBC (Bld) [#/Vol] 11.5 10*3/uL High 3.6 - 10.7 10*3/uL [facility] Work Phone: [phone] Test Performed by [facility], [address] [place] [address] [facility] Work Phone: COMPREHENSIVE METABOLIC PANE LOrdered By: Franco Adame on 12-30-2020 Albumin [Mass/Vol] 4.3 g/dL 3.5 - 5.0 g/dL [facility] Work Phone: [phone] ALP (Bld) [Catalytic activity/Vol] 54 U/L 38 - 126 U/L [facility] Work Phone: [phone] ALT [Catalytic activity/Vol] 21 U/L 0 - 34 U/L [facility] Work Phone: Comment on above: The ALT test is perf ormed by an updated assay method. Please note that the reference intervals have been changed and are now sex specific. Anion gap [Moles/Vol] 11 mmol/L 3 - 13 mmol/L [facility] Work Phone: [phone] AST [Catalytic activity/Vol] 28 U/L 15 - 46 U/L [facility] Work Phone: Bilirubin [Mass/Vol] 0.3 mg/dL 0.2 - 1 .3 mg/dL [facility] Work Phone: [phone] Calcium [Mass/Vol] 9.9 mg/dL 8.4 - 10. 4 mg/dL [facility] Work Phone: [phone] Chloride [Moles/Vol] 105 mmol/L 98 - 10 7 mmol/L [facility] Work Phone: [phone] CO2 [Moles/Vol] 24 mmol/L 22 - 30 mmol/L [facility] Work Phone: [phone] Creatinine [Mass/Vol] 0.69 mg/dL 0.52 - 1.25 mg/dL [facility] Work Phone: EGFR IF NonAfrican Djiboutian >90.0 >60 mL/min [facility] Work Phone: Comment on above: KDIGO guidelines pro vide the following GFR categories: Stage GFR(ml/min/1.73 m2) Terms G1 >=90 Normal or high G2 60-89 Mildly decreased* G3a 45-59 Mildly to moderately decreased G3b 30-44 Moderately to severely decreased G4 15-29 Severely decreased G5 <15 Kidney failure *Relative to young adult level. In the absence of evidence of kidney damage, neither GFR category G1 nor G2 fulfill the criteria for CKD. The CKD-EPI equation is validated in individuals 18 years of age and older. Currently the best equation for estimating glomerular filtration rate (GFR) from serum creatinine in children is the Bedside Boyer equation. It is less accurate in patients with extremes of muscle mass, restriction of dietary protein, ingestion of creatine, extra-renal metabolism of creatinine, or treatment with medications that affect renal tubular creatinine secretion. Free PSA/Total PSA [Mass fraction] 8.0 g/dL 6.3 - 8.2 g/dL [facility] Work Phone: GFR/1.73 sq M.predicted among blacks MDRD (S/P/Bld) [Vol rate/Area] mL/min/{1.73_m2} >60 mL/min [facility] Work Phone: Glucose [Mass/Vol] 133 mg/dL High 70 - 100 mg/dL [facility] Work Phone: Interpretation and review of laboratory results Abnormal [facility] Work Phone: Potassium [Moles/Vol] 3.6 mmol/L 3.5 - 5.1 mmol/L [facility] Work Phone: Sodium [Moles/Vol] 139 mmol/L 135 - 145 mmol/L [facility] Work Phone: Urea nitrogen (BldV) [Mass/Vol] 10 mg/dL 7 - 20 mg/dL [facility] Work Phone: MagnesiumOrdered By: Carmelo Adame on 12-30-2020 Magnesium [Mass/Vol] 2.0 mg/dL 1.6 - 2 .3 mg/dL [facility] Work Phone: [phone] Panel InformationOrdered By: Franco Adame on 12-30-2020 Test Performed by [facility], [address] [place] [address] [facility] Work Phone: [phone] By: Terrance Adame on 12-30-2020 Phosphate [Mass/Vol] 3.5 mg/dL 2.5 - 4 .5 mg/dL [facility] Work Phone: [phone] Respiratory Panel, Molecular , with COVID-19 (Restricted: peds pts or suitable admitted adults)Ordered By: Moose Stoddard on 12-30-2020 Respiratory Panel Molecular, with COVID NEGATIVE: No targets were detected by the [employer] Upper Respiratory Pathogens PCR Panel. _ Expected Result: Not Detected The [employer] Upper Respiratory Pathogens PCR Panel can detect the following targets: SARS-CoV-2, Adenovirus, Coronavirus 229E, Coronavirus HKU1, Coronavirus NL63, Coronavirus OC43, Human Metapneumovirus, Human Rhinovirus/Enterovirus, Influenza A, Influenza B, Parainfluenza Virus 1, Parainfluenza Virus 2, Parainfluenza Virus 3, Parainfluenza Virus 4, Respiratory Syncytial Virus, Bordetella pertussis, Bordetella parapertussis, Chlamydia pneumoniae, Mycoplasma pneumoniae. Negative results do not preclude SARS-CoV-2 infection and should not be used as the sole basis for treatment or other patient management decisions. This assay was developed by [employer] and distributed under an Emergency Use Authorization (EUA) granted by the FDA for the qualitative detection of SARS-CoV-2 nucleic acid. Provider and patient fact sheets can be found at https://www.fda.gov/media /323431/download and https://www.fda.gov/media /456003/download. [facility] Work Phone: Test Performed by [address] [address] [facility] Work Phone: XR CHEST PORTABLEOrdered By: Franco Adame on 12-30-2020 Patient Name: ADDIS TORRES Diagnostic Radiology ACCESSION EXAM DATE/TIME PROCEDURE ORDERING PROVIDER [id number] 12/30/2020 18:36 EDT CR Chest Portable DO ADAME KATHERINE I CPT code 88574 Reason For Exam (CR Chest Portable) check picc placement Report CHEST PORTABLE CLINICAL INDICATION: check picc placement TECHNIQUE: Portable chest x-ray(s). COMPARISON: December,. FINDINGS: Left PICC catheter tip projects over the SVC. Cardiac silhouette within normal limits. Lungs are grossly clear. No apparent pneumothorax. IMPRESSION: 1. Left PICC catheter placement and position, as reported. 2. Otherwise, unremarkable. Report Dictated on --- Final --- Dictated: 12/30/2020 6:36 pm Dictating Physician: MD VALE WENDELL Signed Date and Time: 12/30/2020 6:38 pm Signed by: MD VALE WENDELL Transcribed Date and Time: 12/30/2020 6:36 [facility] Work Phone: [facility] From [facility] - 12/30/2020 6:39 PM EDT Patient Name: ADDIS TORRES Diagnostic Radiology ACCESSION EXAM DATE/TIME PROCEDURE ORDERING PROVIDER [id number] 12/30/2020 18:36 EDT CR Chest Portable DO ADAME KATHERINE I CPT code 45048 Reason For Exam (CR Chest Portable) check picc placement Report CHEST PORTABLE CLINICAL INDICATION: check picc placement TECHNIQUE: Portable chest x-ray(s). COMPARISON: December,. FINDINGS: Left PICC catheter tip projects over the SVC. Cardiac silhouette within normal limits. Lungs are grossly clear. No apparent pneumothorax. IMPRESSION: 1. Left PICC catheter placement and position, as reported. 2. Otherwise, unremarkable. Report Dictated on --- Final --- Dictated: 12/30/2020 6:36 pm Dictating Physician: MD VALE WENDELL Signed Date and Time: 12/30/2020 6:38 pm Signed by: MD VALE WENDELL Transcribed Date and Time: 12/30/2020 6:36 [facility] Work Phone: BASIC METABOLIC PANELOrdered By: Jen Canas on 12-28-2020 Anion gap [Moles/Vol] 7 mmol/L 3 - 13 mmol/L [facility] Work Phone: Calcium [Mass/Vol] 9.0 mg/dL 8.4 - 10. 4 mg/dL [facility] Work Phone: Chloride [Moles/Vol] 107 mmol/L 98 - 10 7 mmol/L [facility] Work Phone: CO2 [Moles/Vol] 25 mmol/L 22 - 30 mmol/L [facility] Work Phone: Creatinine [Mass/Vol] 0.6 mg/dL 0.52 - 1.25 mg/dL [facility] Work Phone: [phone] EGFR IF NonAfrican Djiboutian >90.0 >60 mL/min [facility] Work Phone: Comment on above: KDIGO guidelines pro vide the following GFR categories: Stage GFR(ml/min/1.73 m2) Terms G1 >=90 Normal or high G2 60-89 Mildly decreased* G3a 45-59 Mildly to moderately decreased G3b 30-44 Moderately to severely decreased G4 15-29 Severely decreased G5 <15 Kidney failure *Relative to young adult level. In the absence of evidence of kidney damage, neither GFR category G1 nor G2 fulfill the criteria for CKD. The CKD-EPI equation is validated in individuals 18 years of age and older. Currently the best equation for estimating glomerular filtration rate (GFR) from serum creatinine in children is the Bedside Boyer equation. It is less accurate in patients with extremes of muscle mass, restriction of dietary protein, ingestion of creatine, extra-renal metabolism of creatinine, or treatment with medications that affect renal tubular creatinine secretion. GFR/1.73 sq M.predicted among blacks MDRD (S/P/Bld) [Vol rate/Area] mL/min/{1.73_m2} >60 mL/min [facility] Work Phone: [phone] Glucose [Mass/Vol] 96 mg/dL 70 - 100 mg/dL [facility] Work Phone: Potassium [Moles/Vol] 4.0 mmol/L 3.5 - 5.1 mmol/L [facility] Work Phone: [phone] Sodium [Moles/Vol] 139 mmol/L 135 - 145 mmol/L [facility] Work Phone: [phone] Urea nitrogen (BldV) [Mass/Vol] 11 mg/dL 7 - 20 mg/dL [facility] Work Phone: [phone] Test Performed by [facility], [address] [place] [address] [facility] Work Phone: [phone] CBC WITH AUTO DIFFERENTIALOr dered By: Kodak Ferro on 12-28-2020 Absolute Baso # 0.1 10*3/uL 0.0 - 0.2 10*3/uL [facility] Work Phone: [phone] Absolute Neut # 9.7 10*3/uL High 1.8 - 7.0 10*3/uL [facility] Work Phone: [phone] Basophils/100 WBC (Bld) 0.4 % 0.0 - 2.0 % [facility] Work Phone: [phone] Eosinophils (Bld) [#/Vol] 0.1 10*3/uL 0.0 - 0.5 10*3/uL [facility] Work Phone: [phone] Eosinophils/100 WBC (Bld) 0.7 % Low 1.0 - 6.0 % [facility] Work Phone: [phone]) 222 Granulocytes/100 WBC (Bld) 72.0 % 40.0 - 80.0 % [facility] Work Phone: [phone] 222 Hematocrit (Bld) [Volume fraction] 33.7 % Low 35.0 - 47.0 % [facility] Work Phone: [phone] Hemoglobin.gastrointesti nal spec 1 Ql (Stl) 10.7 g/dL Low 11.7 - 16.0 g/dL [facility] Work Phone: [phone] Comment on above: repeated Interpretation and review of laboratory results Abnormal [facility] Work Phone: [phone] 222 Lymphocytes (Bld) [#/Vol] 2.8 10*3/uL 1.0 - 4.3 10*3/uL [facility] Work Phone: [phone] Lymphocytes/100 WBC (Bld) 20.6 % 20.0 - 40.0 % [facility] Work Phone: ) 222 MCH (RBC) [Entitic mass] 25.8 pg Low 26. 0 - 34.0 pg [facility] Work Phone: [phone] MCHC (RBC) [Mass/Vol] 31.9 % Low 32.0 - 36.0 % [facility] Work Phone: [phone] MCV (RBC) [Entitic vol] 81.0 fL 79.0 - 98.0 fL [facility] Work Phone: [phone] Monocytes (Bld) [#/Vol] 0.8 10*3/uL 0.0 - 0.8 10*3/uL [facility] Work Phone: [phone]) 222 Monocytes/100 WBC (Bld) 6.3 % 2.0 - 10.0 % [facility] Work Phone: 1 Platelet distribution width (Bld) [Ratio] 17.7 % High 11.5 - 14.5 % [facility] Work Phone: ( Platelet mean volume (Bld) [Entitic vol] 7.0 fL Low 7.4 - 10.4 fL [facility] Work Phone: 222 Platelets (Bld) [#/Vol] 321 10*3/uL 140 - 440 10*3/uL [facility] Work Phone: RBC (Bld) [#/Vol] 4.16 10*6/uL 3.80 - 5.20 10*6/uL [facility] Work Phone: WBC (Bld) [#/Vol] 12.9 10*3/uL High 3.6 - 10.7 10*3/uL [facility] Work Phone: Test Performed by [facility] [employer] [place] [address] [facility] Work Phone: RBC MORPHOLOGYOrdered By: uRben Ferro on 12-28-2020 Anisocytosis Ql (Bld) Slight [facility] Work Phone: () [phone] Hypochromia Slight [facility] Work Phone: ) 222 Microcytosis Slight [facility] Work Phone: RBC (Bld) [#/Vol] ABNORMAL [facility] Work Phone: Test Performed by [facility] [employer] [place] [address] [facility] Work Phone: ) BASIC METABOLIC PANELOrdered By: Gil Gutierrez on 12-27-2020 Anion gap [Moles/Vol] 10 mmol/L 3 - 13 mmol/L [facility] Work Phone: 222 Calcium [Mass/Vol] 10.1 mg/dL 8.4 - 10. 4 mg/dL [facility] Work Phone: 222 Chloride [Moles/Vol] 103 mmol/L 98 - 10 7 mmol/L [facility] Work Phone: [phone] CO2 [Moles/Vol] 25 mmol/L 22 - 30 mmol/L [facility] Work Phone: [phone] Creatinine [Mass/Vol] 0.76 mg/dL 0.52 - 1.25 mg/dL [facility] Work Phone: [phone] EGFR IF NonAfrican Djiboutian >90.0 >60 mL/min [facility] Work Phone: [phone] Comment on above: KDIGO guidelines pro vide the following GFR categories: Stage GFR(ml/min/1.73 m2) Terms G1 >=90 Normal or high G2 60-89 Mildly decreased* G3a 45-59 Mildly to moderately decreased G3b 30-44 Moderately to severely decreased G4 15-29 Severely decreased G5 <15 Kidney failure *Relative to young adult level. In the absence of evidence of kidney damage, neither GFR category G1 nor G2 fulfill the criteria for CKD. The CKD-EPI equation is validated in individuals 18 years of age and older. Currently the best equation for estimating glomerular filtration rate (GFR) from serum creatinine in children is the Bedside Boyer equation. It is less accurate in patients with extremes of muscle mass, restriction of dietary protein, ingestion of creatine, extra-renal metabolism of creatinine, or treatment with medications that affect renal tubular creatinine secretion. GFR/1.73 sq M.predicted among blacks MDRD (S/P/Bld) [Vol rate/Area] mL/min/{1.73_m2} >60 mL/min [facility] Work Phone: [phone] Glucose [Mass/Vol] 148 mg/dL High 70 - 100 mg/dL [facility] Work Phone: [phone] Interpretation and review of laboratory results Abnormal [facility] Work Phone: [phone] Potassium [Moles/Vol] 4.2 mmol/L 3.5 - 5.1 mmol/L [facility] Work Phone: [phone] Sodium [Moles/Vol] 138 mmol/L 135 - 145 mmol/L [facility] Work Phone: [phone] Urea nitrogen (BldV) [Mass/Vol] 14 mg/dL 7 - 20 mg/dL [facility] Work Phone: [phone] Test Performed by [facility], [address] [place] [address] [facility] Work Phone: [phone] CBC WITH AUTO DIFFERENTIALOr dered By: Kodak Ferro on 12-27-2020 Absolute Baso # 0.0 10*3/uL 0.0 - 0.2 10*3/uL [facility] Work Phone: [phone] 222 Absolute Neut # 12.6 10*3/uL High 1.8 - 7.0 10*3/uL [facility] Work Phone: [phone]) 222 Basophils/100 WBC (Bld) 0.2 % 0.0 - 2.0 % [facility] Work Phone: ) 222 Eosinophils (Bld) [#/Vol] 0.0 10*3/uL 0.0 - 0.5 10*3/uL [facility] Work Phone: ) 222 Eosinophils/100 WBC (Bld) 0.0 % Low 1.0 - 6.0 % [facility] Work Phone: 222 Granulocytes/100 WBC (Bld) 91.7 % High 40.0 - 80.0 % [facility] Work Phone: ) 222 Hematocrit (Bld) [Volume fraction] 40.5 % 35.0 - 47.0 % [facility] Work Phone: ) 222 Hemoglobin.gastrointesti nal spec 1 Ql (Stl) 13.1 g/dL 11.7 - 16.0 g/dL [facility] Work Phone: [phone] Interpretation and review of laboratory results Abnormal [facility] Work Phone: ) 222 Lymphocytes (Bld) [#/Vol] 0.7 10*3/uL Low 1.0 - 4.3 10*3/uL [facility] Work Phone: ) 222 Lymphocytes/100 WBC (Bld) 5.3 % Low 20.0 - 40.0 % [facility] Work Phone: [phone] MCH (RBC) [Entitic mass] 26.2 pg 26. 0 - 34.0 pg [facility] Work Phone: [phone]) 222 MCHC (RBC) [Mass/Vol] 32.3 % 32.0 - 36.0 % [facility] Work Phone: MCV (RBC) [Entitic vol] 80.9 fL 79.0 - 98.0 fL [facility] Work Phone: Monocytes (Bld) [#/Vol] 0.4 10*3/uL 0.0 - 0.8 10*3/uL [facility] Work Phone: [phone] Monocytes/100 WBC (Bld) 2.8 % 2.0 - 10.0 % [facility] Work Phone: Platelet distribution width (Bld) [Ratio] 19.0 % High 11.5 - 14.5 % [facility] Work Phone: [phone] Platelet mean volume (Bld) [Entitic vol] 8.5 fL 7.4 - 10.4 fL [facility] Work Phone: [phone] Platelets (Bld) [#/Vol] 379 10*3/uL 140 - 440 10*3/uL [facility] Work Phone: [phone] RBC (Bld) [#/Vol] 5.01 10*6/uL 3.80 - 5.20 10*6/uL [facility] Work Phone: [phone] WBC (Bld) [#/Vol] 13.7 10*3/uL High 3.6 - 10.7 10*3/uL [facility] Work Phone: Test Performed by [facility], [address] [place] [address] [facility] Work Phone: EKG 12 LeadOrdered By: Felipe Rowland on 12-27-2020 [facility]: 2020[facility]26 Pat Name: ADDIS TORRES Department: 1AH6 Room: 6136 Gender: F Ornament Stapler: MY : 2000 Requested By: REKHA ROWLAND Order Number: [id number] Toni MD: Jacob South Measurements Intervals [place] Rate: 94 P: 45 SC: 138 QRS: 63 QRSD: 93 T: 15 QT: 331 QTc: 414 Interpretive Statements Sinus rhythm Electronically Signed On 12-27-2020 8:02:44 EDT by [facility] Work Phone: Baldo, Marqeta Incoming Cardiology Results From [facility] - 12/27/2020 8:03 AM EDT [facility] Test Date: 2020-12-26 Pat Name: ADDIS TORRES Department: 1AH6 Room: 6136 Gender: F Ornament Stapler: MY : 2000 Requested By: REKHA ROWLAND Order Number: [id number] Toni MD: Jacob South Measurements Intervals [place] Rate: 94 P: 45 SC: 138 QRS: 63 QRSD: 93 T: 15 QT: 331 QTc: 414 Interpretive Statements Sinus rhythm Electronically Signed On 12-27-2020 8:02:44 EDT by [facility] Work Phone: No Panel InformationOrdered By: Jennifer Szymanski on 12-27-2020 Blood Culture, Routine No growth at 5 days. [facility] Work Phone: Test Performed by [facility], [address] [place] [address] [facility] Work Phone: XR ABDOMEN (KUB) (SINGLE AP VIEW)Ordered By: Kodak Ferro on 12-27-2020 Patient Name: ADDIS TORRES Diagnostic Radiology ACCESSION EXAM DATE/TIME PROCEDURE ORDERING PROVIDER [id number] 12/27/2020 10:40 EDT CR Abdomen AP MD FERRO JOSEPH SPENCER CPT code 39012 Reason For Exam (CR Abdomen AP) Assess stent placement Report KUB History: Stent placement COMPARISON: 12/24/2020 Findings: AP supine abdominal view shows left ureteral stent extending from the level of the superior aspect of the left kidney to the suprapubic region. The exam is limited due to large amount of stools and residual contrast in the bowel that could obscure abnormalities. Routine evaluation of any possible free air also requires concurrent upright or decubitus views that are not available. IMPRESSION: Limited exam. Residual contrast in the bowel. Left ureter stent placement. Report Dictated on --- Final --- Dictated: 12/27/2020 11:13 am Dictating Physician: MD MELÉNDEZ AHMAD Signed Date and Time: 12/27/2020 11:17 am Signed by: MD MELÉNDEZ AHMAD Transcribed Date and Time: 12/27/2020 11:13 [facility] Work Phone: [facility], [facility] Incoming Radiology Results From [facility] - 12/27/2020 11:18 AM EDT Patient Name: ADDIS TORRES Diagnostic Radiology ACCESSION EXAM DATE/TIME PROCEDURE ORDERING PROVIDER [id number] 12/27/2020 10:40 EDT CR Abdomen AP MD JOSELITO, TYE CANDELARIO CPT code 33613 Reason For Exam (CR Abdomen AP) Assess stent placement Report KUB History: Stent placement COMPARISON: 12/24/2020 Findings: AP supine abdominal view shows left ureteral stent extending from the level of the superior aspect of the left kidney to the suprapubic region. The exam is limited due to large amount of stools and residual contrast in the bowel that could obscure abnormalities. Routine evaluation of any possible free air also requires concurrent upright or decubitus views that are not available. IMPRESSION: Limited exam. Residual contrast in the bowel. Left ureter stent placement. Report Dictated on --- Final --- Dictated: 12/27/2020 11:13 am Dictating Physician: MD MELÉNDEZ AHMAD Signed Date and Time: 12/27/2020 11:17 am Signed by: MD MELÉNDEZ AHMAD Transcribed Date and Time: 12/27/2020 11:13 [facility] Work Phone: XR CHEST PORTABLEOrdered By: Arlet Salinas on 12-27-2020 Patient Name: ADDIS TORRES Diagnostic Radiology ACCESSION EXAM DATE/TIME PROCEDURE ORDERING PROVIDER [id number] 12/27/2020 16:57 EDT CR Chest Portable CALLRIVKA KIRSTON CPT code 20728 Reason For Exam (CR Chest Portable) Line Placement Report PORTABLE CHEST (Frontal View) History: Catheter placement Comparison: None available IMPRESSION: Frontal portable chest view shows crowded lung markings in the bases. Associated small infiltrate could not be excluded due to overlying breasts. The heart is normal in size. There is no pulmonary congestion. Tip of left-sided PICC line overlies the right atrium/SVC junction. There is no mediastinal widening, pneumothorax, or pleural effusion. There is radiopaque density or artifact overlying the left neck base/first rib. Report Dictated on --- Final --- Dictated: 12/27/2020 4:33 pm Dictating Physician: MD MELÉNDEZ AHMAD Signed Date and Time: 12/27/2020 4:36 pm Signed by: MD MELÉNDEZ AHMAD Transcribed Date and Time: 12/27/2020 4:33 [facility] Work Phone: [facility], [facility] Incoming Radiology Results From [facility] - 12/27/2020 4:58 PM EDT Patient Name: ADDIS TORRES Diagnostic Radiology ACCESSION EXAM DATE/TIME PROCEDURE ORDERING PROVIDER [id number] 12/27/2020 16:57 EDT CR Chest Portable CALL, ARLET TINEO CPT code 87861 Reason For Exam (CR Chest Portable) Line Placement Report PORTABLE CHEST (Frontal View) History: Catheter placement Comparison: None available IMPRESSION: Frontal portable chest view shows crowded lung markings in the bases. Associated small infiltrate could not be excluded due to overlying breasts. The heart is normal in size. There is no pulmonary congestion. Tip of left-sided PICC line overlies the right atrium/SVC junction. There is no mediastinal widening, pneumothorax, or pleural effusion. There is radiopaque density or artifact overlying the left neck base/first rib. Report Dictated on --- Final --- Dictated: 12/27/2020 4:33 pm Dictating Physician: MD MELÉNDEZ AHMAD Signed Date and Time: 12/27/2020 4:36 pm Signed by: MD MELÉNDEZ AHMAD Transcribed Date and Time: 12/27/2020 4:33 [facility] Work Phone: [phone] CBC WITH AUTO DIFFERENTIALOr dered By: Jen Canas on 12-26-2020 Absolute Baso # 0.1 10*3/uL 0.0 - 0.2 10*3/uL [facility] Work Phone: [phone] Absolute Neut # 6.8 10*3/uL 1.8 - 7.0 10*3/uL [facility] Work Phone: [phone] Basophils/100 WBC (Bld) 0.8 % 0.0 - 2.0 % [facility] Work Phone: [phone] Eosinophils (Bld) [#/Vol] 0.2 10*3/uL 0.0 - 0.5 10*3/uL [facility] Work Phone: [phone] Eosinophils/100 WBC (Bld) 2.0 % 1.0 - 6.0 % [facility] Work Phone: [phone] Granulocytes/100 WBC (Bld) 68.2 % 40.0 - 80.0 % [facility] Work Phone: [phone] Hematocrit (Bld) [Volume fraction] 33.5 % Low 35.0 - 47.0 % [facility] Work Phone: [phone] Hemoglobin.gastrointesti nal spec 1 Ql (Stl) 10.9 g/dL Low 11.7 - 16.0 g/dL [facility] Work Phone: [phone] Interpretation and review of laboratory results Abnormal [facility] Work Phone: [phone] Lymphocytes (Bld) [#/Vol] 1.9 10*3/uL 1.0 - 4.3 10*3/uL [facility] Work Phone: [phone] Lymphocytes/100 WBC (Bld) 19.1 % Low 20.0 - 40.0 % [facility] Work Phone: [phone] MCH (RBC) [Entitic mass] 26.1 pg 26. 0 - 34.0 pg [facility] Work Phone: [phone] MCHC (RBC) [Mass/Vol] 32.5 % 32.0 - 36.0 % [facility] Work Phone: [phone] MCV (RBC) [Entitic vol] 80.3 fL 79.0 - 98.0 fL [facility] Work Phone: Monocytes (Bld) [#/Vol] 1.0 10*3/uL High 0.0 - 0.8 10*3/uL [facility] Work Phone: Monocytes/100 WBC (Bld) 9.9 % 2.0 - 10.0 % [facility] Work Phone: [phone] Platelet distribution width (Bld) [Ratio] 20.8 % High 11.5 - 14.5 % [facility] Work Phone: Platelet mean volume (Bld) [Entitic vol] 8.4 fL 7.4 - 10.4 fL [facility] Work Phone: Platelets (Bld) [#/Vol] 269 10*3/uL 140 - 440 10*3/uL [facility] Work Phone: RBC (Bld) [#/Vol] 4.16 10*6/uL 3.80 - 5.20 10*6/uL [facility] Work Phone: WBC (Bld) [#/Vol] 10.0 10*3/uL 3.6 - 10.7 10*3/uL [facility] Work Phone: Test Performed by [facility], [address] [place] [address] [facility] Work Phone: CT Abdomen and Pelvis W cont rast IVOrdered By: Jen Canas on 12-26-2020 Patient Name: ADDIS TORRES Computed Tomography ACCESSION EXAM DATE/TIME PROCEDURE ORDERING PROVIDER [id number] 12/26/2020 10:[address] Abdomen/Pelvis w/ IV MD CANAS ABBY GAIL Contrast (IV Onl CPT code 69598 Q9967 Reason For Exam (CT Abdomen/Pelvis w/ IV Contrast (IV Onl) tachycardia, check urinoma Report Procedure: CT Abdomen and Pelvis. EXAM DATE & TIME: 12/26/2020 10:12 AM EDT INDICATION: Tachycardia, check urinoma ADDITIONAL INFORMATION: none COMPARISON: CT abdomen pelvis on 12/22/2020 and 12/24/2020 TECHNIQUE: Abdomen: with intravenous contrast Pelvis: with intravenous contrast 75 ml of Isovue 370 was injected. FINDINGS: LOWER CHEST: Refer to concurrent CTA chest. ABDOMEN: LIVER: within normal limits. BILE DUCTS: normal caliber. GALLBLADDER: No calcified gallstones. Normal caliber wall. PANCREAS: within normal limits. SPLEEN: within normal limits. ADRENALS: within normal limits. KIDNEYS/URETERS: A left ureteral stent is present within the proximal portion within the mid ureter at the distal portion within the bladder. A punctate focus of gas is present within the proximal left ureter (series 4, 68). This is nonspecific given recent surgery, however underlying infective pyelitis is not excluded. There is redemonstration of the retroperitoneal enhancing fluid collection anterior to the left size with small foci of gas as well as the left ureter and ureteral stent measuring 6.9 x 2.5 cm in axial dimension, similar to prior. Additional rim-enhancing fluid collection is present within the presacral space measuring 5.3 x 2.5 x10.1 cm with small foci of gas, slightly increased since the prior study. PELVIS: REPRODUCTIVE ORGANS: Surgical changes of hysterectomy. Bilateral ovaries appear slightly enlarged measuring up to 4.9 cm on the right and 5.1 cm on the left. This is similar to prior studies back to 12/22/2020. BLADDER: Nondistended with few foci of gas related to instrumentation. Computed Tomography Report The distal portion of the left ureteral stent is present within the bladder. BOWEL: Normal caliber. Obstruction. Normal appendix. No enlarged mesenteric lymph nodes. PERITONEUM: no ascites or free air, no fluid collection. VESSELS: Atherosclerotic changes within normal limits. LYMPH NODES: No enlarged nodes. RETROPERITONEUM: within normal limits. ABDOMINAL WALL: within normal limits. BONES: within normal limits. IMPRESSION: 1. Interval increase in size of the retroperitoneal/presacral rim-enhancing fluid collection with foci of gas since the prior study of 12/24/2020. Although this may represent a urinoma, superimposed infectious/abscess is also considered. 2. Similar size of the retroperitoneal rim-enhancing fluid collection adjacent to the left psoas surrounding the left ureter. 3. Small focus of gas within the proximal left ureter superior to the ureteral stent. This is nonspecific, however infective pyelitis is considered. 4. Severely enlarged bilateral ovaries, similar to prior studies. CRITICAL TEST COMMUNICATION: Dr. Jen Canas was notified by perfect serve today at 1058. Report Dictated on --- Final --- Dictated: 12/26/2020 10:44 am Dictating Physician: MD NOGUERA NEIL Signed Date and Time: 12/26/2020 11:00 am Signed by: MD NOGUERA NEIL Transcribed Date and Time: 12/26/2020 10:44 [facility] Work Phone: [facility], [facility] Incoming Radiology Results From [facility] - 12/26/2020 11:01 AM EDT Patient Name: ADDIS TORRES Computed Tomography ACCESSION EXAM DATE/TIME PROCEDURE ORDERING PROVIDER [id number] 12/26/2020 10:[address] Abdomen/Pelvis w/ IV MD CANAS ABBY GAIL Contrast (IV Onl CPT code 27010 Q9967 Reason For Exam (CT Abdomen/Pelvis w/ IV Contrast (IV Onl) tachycardia, check urinoma Report Procedure: CT Abdomen and Pelvis. EXAM DATE & TIME: 12/26/2020 10:12 AM EDT INDICATION: Tachycardia, check urinoma ADDITIONAL INFORMATION: none COMPARISON: CT abdomen pelvis on 12/22/2020 and 12/24/2020 TECHNIQUE: Abdomen: with intravenous contrast Pelvis: with intravenous contrast 75 ml of Isovue 370 was injected. FINDINGS: LOWER CHEST: Refer to concurrent CTA chest. ABDOMEN: LIVER: within normal limits. BILE DUCTS: normal caliber. GALLBLADDER: No calcified gallstones. Normal caliber wall. PANCREAS: within normal limits. SPLEEN: within normal limits. ADRENALS: within normal limits. KIDNEYS/URETERS: A left ureteral stent is present within the proximal portion within the mid ureter at the distal portion within the bladder. A punctate focus of gas is present within the proximal left ureter (series 4, 68). This is nonspecific given recent surgery, however underlying infective pyelitis is not excluded. There is redemonstration of the retroperitoneal enhancing fluid collection anterior to the left size with small foci of gas as well as the left ureter and ureteral stent measuring 6.9 x 2.5 cm in axial dimension, similar to prior. Additional rim-enhancing fluid collection is present within the presacral space measuring 5.3 x 2.5 x10.1 cm with small foci of gas, slightly increased since the prior study. PELVIS: REPRODUCTIVE ORGANS: Surgical changes of hysterectomy. Bilateral ovaries appear slightly enlarged measuring up to 4.9 cm on the right and 5.1 cm on the left. This is similar to prior studies back to 12/22/2020. BLADDER: Nondistended with few foci of gas related to instrumentation. Computed Tomography Report The distal portion of the left ureteral stent is present within the bladder. BOWEL: Normal caliber. Obstruction. Normal appendix. No enlarged mesenteric lymph nodes. PERITONEUM: no ascites or free air, no fluid collection. VESSELS: Atherosclerotic changes within normal limits. LYMPH NODES: No enlarged nodes. RETROPERITONEUM: within normal limits. ABDOMINAL WALL: within normal limits. BONES: within normal limits. IMPRESSION: 1. Interval increase in size of the retroperitoneal/presacral rim-enhancing fluid collection with foci of gas since the prior study of 12/24/2020. Although this may represent a urinoma, superimposed infectious/abscess is also considered. 2. Similar size of the retroperitoneal rim-enhancing fluid collection adjacent to the left psoas surrounding the left ureter. 3. Small focus of gas within the proximal left ureter superior to the ureteral stent. This is nonspecific, however infective pyelitis is considered. 4. Severely enlarged bilateral ovaries, similar to prior studies. CRITICAL TEST COMMUNICATION: Dr. Jen Canas was notified by perfect serve today at 1058. Report Dictated on --- Final --- Dictated: 12/26/2020 10:44 am Dictating Physician: MD NOGUERA NEIL Signed Date and Time: 12/26/2020 11:00 am Signed by: MD NOGUERA NEIL Transcribed Date and Time: 12/26/2020 10:44 [facility] Work Phone: CTA CHEST W WO CONTRASTOrder ed By: Jen Canas on 12-26-2020 Patient Name: ADDIS TORRES Computed Tomography ACCESSION EXAM DATE/TIME PROCEDURE ORDERING PROVIDER [id number] 12/26/2020 10:12 EDT CTA Chest w/ + w/o CANAS, MD, JEN ISABEL Contrast CPT code 61910 Reason For Exam (CTA Chest w/ + w/o Contrast) tachycardia, r/o PE Report CT ANGIOGRAPHY CHEST: CLINICAL INDICATION: Shortness of breath. TECHNIQUE: Transaxial sequence from apices through the bases during dynamic intravenous infusion of 75 mL of contrast media, injected at a high flow rate. Multiplanar and 3D MIP reconstruction was performed concurrently on an independent viewing workstation. COMPARISON: None. FINDINGS: Exam quality: Good contrast enhancement of the vasculature. Pulmonary Arteries: No filling defects identified throughout the main pulmonary arteries along with the lobar, segmental and visualized subsegmental branches. Aorta: No aortic dissection identified. Lungs: Mosaic attenuation the lungs, which can be seen with small vessel or small airways disease. A 9 mm subpleural bleb is present within the left lower lobe. No consolidation or atelectasis. No parenchymal or pleural-based mass. Pleural fluid: None. Heart: No abnormality . Mediastinum/Bri: No mediastinal or hilar mass. Soft tissues chest wall/Neck base: No abnormality identified. Upper abdomen: Refer to concurrent CT abdomen and pelvis. Osseous structures: Normal. IMPRESSION: 1. No pulmonary embolus identified. 2. Mosaic attenuation the lungs, which can be seen with small vessel or small airways disease. Computed Tomography Report 3. A 9 mm subpleural bleb is present within the left lower lobe. Report Dictated on --- Final --- Dictated: 12/26/2020 10:36 am Dictating Physician: MD NOGUERA NEIL Signed Date and Time: 12/26/2020 10:43 am Signed by: MD NOGUERA NEIL Transcribed Date and Time: 12/26/2020 10:36 [facility] Work Phone: [facility], [facility] Incoming Radiology Results From [facility] - 12/26/2020 10:45 AM EDT Patient Name: ADDIS TORRES Computed Tomography ACCESSION EXAM DATE/TIME PROCEDURE ORDERING PROVIDER [id number] 12/26/2020 10:12 EDT CTA Chest w/ + w/o MD CANAS ABBY GAIL Contrast CPT code 58679 Reason For Exam (CTA Chest w/ + w/o Contrast) tachycardia, r/o PE Report CT ANGIOGRAPHY CHEST: CLINICAL INDICATION: Shortness of breath. TECHNIQUE: Transaxial sequence from apices through the bases during dynamic intravenous infusion of 75 mL of contrast media, injected at a high flow rate. Multiplanar and 3D MIP reconstruction was performed concurrently on an independent viewing workstation. COMPARISON: None. FINDINGS: Exam quality: Good contrast enhancement of the vasculature. Pulmonary Arteries: No filling defects identified throughout the main pulmonary arteries along with the lobar, segmental and visualized subsegmental branches. Aorta: No aortic dissection identified. Lungs: Mosaic attenuation the lungs, which can be seen with small vessel or small airways disease. A 9 mm subpleural bleb is present within the left lower lobe. No consolidation or atelectasis. No parenchymal or pleural-based mass. Pleural fluid: None. Heart: No abnormality . Mediastinum/Bri: No mediastinal or hilar mass. Soft tissues chest wall/Neck base: No abnormality identified. Upper abdomen: Refer to concurrent CT abdomen and pelvis. Osseous structures: Normal. IMPRESSION: 1. No pulmonary embolus identified. 2. Mosaic attenuation the lungs, which can be seen with small vessel or small airways disease. Computed Tomography Report 3. A 9 mm subpleural bleb is present within the left lower lobe. Report Dictated on --- Final --- Dictated: 12/26/2020 10:36 am Dictating Physician: MD NOGUERA NEIL Signed Date and Time: 12/26/2020 10:43 am Signed by: MD NOGUERA NEIL Transcribed Date and Time: 12/26/2020 10:36 [facility] Work Phone: PROTIME INROrdered By: Gil Gutierrez on 12-26-2020 INR Coag (Bld) [Relative time] 1.1 {INR} [facility] Work Phone: Comment on above: Recommended Anticoag ulant Therapy: SEE BELOW ----- INR of 2.0 - 3.0 : - Prophylaxis of Venous Thrombosis (high-risk surgery) - Treatment of Venous Thrombosis - Treatment of Pulmonary Embolism (Includes tissue heart valves, Acute Myocardial Infarction to prevent systemic embolism, Valvular Heart Disease, and Atrial Fibrillation) ----- INR of 2.5 - 3.5 : - Mechanical Prosthetic Valves (high risk) - If oral anticoagulant therapy is used to prevent Myocardial Infarction PT Coag (PPP) [Time] 11.4 s 9.0 - 1 2.0 s [facility] Work Phone: Comment on above: . Test Performed by [facility], [address] [place] [id number] [facility] Work Phone: BASIC METABOLIC PANELOrdered By: Jen Canas on 12-25-2020 Anion gap [Moles/Vol] 4 mmol/L 3 - 13 mmol/L [facility] Work Phone: Calcium [Mass/Vol] 6.7 mg/dL Low 8.4 - 10. 4 mg/dL [facility] Work Phone: Chloride [Moles/Vol] 112 mmol/L High 98 - 10 7 mmol/L [facility] Work Phone: CO2 [Moles/Vol] 22 mmol/L 22 - 30 mmol/L [facility] Work Phone: Creatinine [Mass/Vol] 0.63 mg/dL 0.52 - 1.25 mg/dL [facility] Work Phone: EGFR IF NonAfrican Djiboutian >90.0 >60 mL/min [facility] Work Phone: Comment on above: KDIGO guidelines pro vide the following GFR categories: Stage GFR(ml/min/1.73 m2) Terms G1 >=90 Normal or high G2 60-89 Mildly decreased* G3a 45-59 Mildly to moderately decreased G3b 30-44 Moderately to severely decreased G4 15-29 Severely decreased G5 <15 Kidney failure *Relative to young adult level. In the absence of evidence of kidney damage, neither GFR category G1 nor G2 fulfill the criteria for CKD. The CKD-EPI equation is validated in individuals 18 years of age and older. Currently the best equation for estimating glomerular filtration rate (GFR) from serum creatinine in children is the Bedside Boyer equation. It is less accurate in patients with extremes of muscle mass, restriction of dietary protein, ingestion of creatine, extra-renal metabolism of creatinine, or treatment with medications that affect renal tubular creatinine secretion. GFR/1.73 sq M.predicted among blacks MDRD (S/P/Bld) [Vol rate/Area] mL/min/{1.73_m2} >60 mL/min [facility] Work Phone: Glucose [Mass/Vol] 66 mg/dL Low 70 - 100 mg/dL [facility] Work Phone: Interpretation and review of laboratory results Abnormal [facility] Work Phone: Potassium [Moles/Vol] 3.2 mmol/L Low 3.5 - 5.1 mmol/L [facility] Work Phone: Sodium [Moles/Vol] 138 mmol/L 135 - 145 mmol/L [facility] Work Phone: Urea nitrogen (BldV) [Mass/Vol] 8 mg/dL 7 - 20 mg/dL [facility] Work Phone: Test Performed by [facility], [address] [place] [id number] [place], [place] [address]A Work Phone: CBCOrdered By: Jen Canas on 12-25-2020 Hematocrit (Bld) [Volume fraction] 31.3 % Low 35.0 - 47.0 % [facility] Work Phone: Hemoglobin.gastrointesti nal spec 1 Ql (Stl) 10.1 g/dL Low 11.7 - 16.0 g/dL [facility] Work Phone: Interpretation and review of laboratory results Abnormal [facility] Work Phone: MCH (RBC) [Entitic mass] 26.3 pg 26. 0 - 34.0 pg [facility] Work Phone: MCHC (RBC) [Mass/Vol] 32.3 % 32.0 - 36.0 % [facility] Work Phone: MCV (RBC) [Entitic vol] 81.6 fL 79.0 - 98.0 fL [facility] Work Phone: Platelet distribution width (Bld) [Ratio] 20.7 % High 11.5 - 14.5 % [facility] Work Phone: Platelet mean volume (Bld) [Entitic vol] 8.4 fL 7.4 - 10.4 fL [facility] Work Phone: [phone] Platelets (Bld) [#/Vol] 205 10*3/uL 140 - 440 10*3/uL [facility] Work Phone: [phone] RBC (Bld) [#/Vol] 3.84 10*6/uL 3.80 - 5.20 10*6/uL [facility] Work Phone: [phone] WBC (Bld) [#/Vol] 12.1 10*3/uL High 3.6 - 10.7 10*3/uL [facility] Work Phone: [phone] Test Performed by [address] [id number] [facility] Work Phone: [phone] Basic Metabolic PanelOrdered By: Roxann Wilson on 12-24-2020 Anion gap [Moles/Vol] 7 mmol/L 3 - 13 mmol/L [facility] Work Phone: [phone] Calcium [Mass/Vol] 8.8 mg/dL 8.4 - 10. 4 mg/dL [facility] Work Phone: [phone] Chloride [Moles/Vol] 104 mmol/L 98 - 10 7 mmol/L [facility] Work Phone: [phone] CO2 [Moles/Vol] 27 mmol/L 22 - 30 mmol/L [facility] Work Phone: [phone] Creatinine [Mass/Vol] 0.65 mg/dL 0.52 - 1.25 mg/dL [facility] Work Phone: [phone] EGFR IF NonAfrican Djiboutian >90.0 >60 mL/min [facility] Work Phone: [phone] Comment on above: KDIGO guidelines pro vide the following GFR categories: Stage GFR(ml/min/1.73 m2) Terms G1 >=90 Normal or high G2 60-89 Mildly decreased* G3a 45-59 Mildly to moderately decreased G3b 30-44 Moderately to severely decreased G4 15-29 Severely decreased G5 <15 Kidney failure *Relative to young adult level. In the absence of evidence of kidney damage, neither GFR category G1 nor G2 fulfill the criteria for CKD. The CKD-EPI equation is validated in individuals 18 years of age and older. Currently the best equation for estimating glomerular filtration rate (GFR) from serum creatinine in children is the Bedside Boyer equation. It is less accurate in patients with extremes of muscle mass, restriction of dietary protein, ingestion of creatine, extra-renal metabolism of creatinine, or treatment with medications that affect renal tubular creatinine secretion. GFR/1.73 sq M.predicted among blacks MDRD (S/P/Bld) [Vol rate/Area] mL/min/{1.73_m2} >60 mL/min [facility] Work Phone: [phone] Glucose [Mass/Vol] 98 mg/dL 70 - 100 mg/dL [facility] Work Phone: Potassium [Moles/Vol] 4.4 mmol/L 3.5 - 5.1 mmol/L [facility] Work Phone: Sodium [Moles/Vol] 137 mmol/L 135 - 145 mmol/L [facility] Work Phone: Urea nitrogen (BldV) [Mass/Vol] 13 mg/dL 7 - 20 mg/dL [facility] Work Phone: Test Performed by [facility], [address] [place] [id number] [place], [place] [address] Work Phone: CBC WITH AUTO DIFFERENTIALOr dered By: Roxann Wilson on 12-24-2020 Absolute Baso # 0.1 10*3/uL 0.0 - 0.2 10*3/uL [facility] Work Phone: 222 Absolute Neut # 11.8 10*3/uL High 1.8 - 7.0 10*3/uL [facility] Work Phone: 222 Basophils/100 WBC (Bld) 0.4 % 0.0 - 2.0 % [facility] Work Phone: 222 Eosinophils (Bld) [#/Vol] 0.1 10*3/uL 0.0 - 0.5 10*3/uL [facility] Work Phone: 222 Eosinophils/100 WBC (Bld) 0.7 % Low 1.0 - 6.0 % [facility] Work Phone: 222 Granulocytes/100 WBC (Bld) 77.7 % 40.0 - 80.0 % [facility] Work Phone: [phone] 222 Hematocrit (Bld) [Volume fraction] 34.3 % Low 35.0 - 47.0 % [facility] Work Phone: [phone]) 222 Hemoglobin.gastrointesti nal spec 1 Ql (Stl) 10.9 g/dL Low 11.7 - 16.0 g/dL [facility] Work Phone: [phone] 222 Interpretation and review of laboratory results Abnormal [facility] Work Phone: [phone]) 222 Lymphocytes (Bld) [#/Vol] 2.4 10*3/uL 1.0 - 4.3 10*3/uL [facility] Work Phone: [phone]) 222 Lymphocytes/100 WBC (Bld) 15.8 % Low 20.0 - 40.0 % [facility] Work Phone: ) 222 MCH (RBC) [Entitic mass] 25.8 pg Low 26. 0 - 34.0 pg [facility] Work Phone: ) 222 MCHC (RBC) [Mass/Vol] 31.7 % Low 32.0 - 36.0 % [facility] Work Phone: [phone] 222 MCV (RBC) [Entitic vol] 81.5 fL 79.0 - 98.0 fL [facility] Work Phone: () 222 Monocytes (Bld) [#/Vol] 0.8 10*3/uL 0.0 - 0.8 10*3/uL [facility] Work Phone: ) 222 Monocytes/100 WBC (Bld) 5.4 % 2.0 - 10.0 % [facility] Work Phone: [phone] 222 Platelet distribution width (Bld) [Ratio] 21.5 % High 11.5 - 14.5 % [facility] Work Phone: () 222 Platelet mean volume (Bld) [Entitic vol] 8.5 fL 7.4 - 10.4 fL [facility] Work Phone: () 222 Platelets (Bld) [#/Vol] 259 10*3/uL 140 - 440 10*3/uL [facility] Work Phone: ) 222 RBC (Bld) [#/Vol] 4.21 10*6/uL 3.80 - 5.20 10*6/uL [facility] Work Phone: WBC (Bld) [#/Vol] 15.2 10*3/uL High 3.6 - 10.7 10*3/uL [facility] Work Phone: Test Performed by [facility], [address] [place] [id number] [facility] Work Phone: CT Abdomen and Pelvis W cont rast IVOrdered By: Jen Canas on 12-24-2020 Patient Name: ADDIS TORRES Computed Tomography ACCESSION EXAM DATE/TIME PROCEDURE ORDERING PROVIDER [id number] 12/24/2020 11:[address] Abdomen/Pelvis w/ IV MD CANAS ABBY GAIL Contrast (IV Onl CPT code 57527 Q9967 Reason For Exam (CT Abdomen/Pelvis w/ IV Contrast (IV Onl) ureteral injury, abdominal pain Report CT scan of the abdomen:12/24/2020. CT scan of the pelvis:12/24/2020. Clinical Information: History of left ureteral stent placement. CT scans of the abdomen: CT scans of the abdomen were performed at 3 mm slice thickness following the administration of oral and intravenous contrast. Comparison was made to prior study 12/22/2020. Limited slices through the lower lung goel reveal no pleural or parenchymal abnormalities in the lung bases. The liver is normal in size and configuration. No mass lesions identified within the liver. There is no evidence of intrahepatic biliary dilatation. The spleen is not enlarged. The pancreas is within normal limits. No peripancreatic fluid collections are identified. No free peritoneal fluid or air is seen. No retroperitoneal lymphadenopathy is identified. The right kidney is within normal limits. No right hydronephrosis is identified. In the interval since the prior study, there has been placement of a double-J ureteral stent on the left. There is slight improvement in the retroperitoneal collection when compared to the prior day's study two days previous. There is a small amount of loculated air adjacent to the left ureter in the collection as well as near the left renal pelvis probably from the recent instrumentation. The left ureteral stents appears to end in the mid left ureter at the level of the superior margin of the L3 vertebral body. There is some coiling in the urinary bladder. CT scans of the pelvis: CT scans of the pelvis were performed at 3 mm slice thickness with oral and intravenous contrast enhancement from the abdominal portion of the study. No abnormal loops of bowel are identified. No inflammatory changes in Computed Tomography Report the mesentery are seen. There is a small amount of air in the urinary bladder from a recent instrumentation. No pelvic mass lesions, fluid collections or lymphadenopathy is seen. Impression: Improvement but incomplete resolution of retroperitoneal fluid when compared to prior study two days previous. Some loculated air bubbles within it probably related to recent instrumentation. No other interval change when compared to prior study. Report Dictated on --- Final --- Dictated: 12/24/2020 11:27 am Dictating Physician: MD ARANGO RISA Signed Date and Time: 12/24/2020 11:51 am Signed by: MD ARANGO RISA Transcribed Date and Time: 12/24/2020 11:27 [facility] Work Phone: Baldo, Aubreya Incoming Radiology Results From [facility] - 12/24/2020 11:52 AM EDT Patient Name: ADDIS TORRES Computed Tomography ACCESSION EXAM DATE/TIME PROCEDURE ORDERING PROVIDER [id number] 12/24/2020 11:[address] Abdomen/Pelvis w/ IV MD CANAS ABBY GAIL Contrast (IV Onl CPT code 58830 Q9967 Reason For Exam (CT Abdomen/Pelvis w/ IV Contrast (IV Onl) ureteral injury, abdominal pain Report CT scan of the abdomen:12/24/2020. CT scan of the pelvis:12/24/2020. Clinical Information: History of left ureteral stent placement. CT scans of the abdomen: CT scans of the abdomen were performed at 3 mm slice thickness following the administration of oral and intravenous contrast. Comparison was made to prior study 12/22/2020. Limited slices through the lower lung goel reveal no pleural or parenchymal abnormalities in the lung bases. The liver is normal in size and configuration. No mass lesions identified within the liver. There is no evidence of intrahepatic biliary dilatation. The spleen is not enlarged. The pancreas is within normal limits. No peripancreatic fluid collections are identified. No free peritoneal fluid or air is seen. No retroperitoneal lymphadenopathy is identified. The right kidney is within normal limits. No right hydronephrosis is identified. In the interval since the prior study, there has been placement of a double-J ureteral stent on the left. There is slight improvement in the retroperitoneal collection when compared to the prior day's study two days previous. There is a small amount of loculated air adjacent to the left ureter in the collection as well as near the left renal pelvis probably from the recent instrumentation. The left ureteral stents appears to end in the mid left ureter at the level of the superior margin of the L3 vertebral body. There is some coiling in the urinary bladder. CT scans of the pelvis: CT scans of the pelvis were performed at 3 mm slice thickness with oral and intravenous contrast enhancement from the abdominal portion of the study. No abnormal loops of bowel are identified. No inflammatory changes in Computed Tomography Report the mesentery are seen. There is a small amount of air in the urinary bladder from a recent instrumentation. No pelvic mass lesions, fluid collections or lymphadenopathy is seen. Impression: Improvement but incomplete resolution of retroperitoneal fluid when compared to prior study two days previous. Some loculated air bubbles within it probably related to recent instrumentation. No other interval change when compared to prior study. Report Dictated on --- Final --- Dictated: 12/24/2020 11:27 am Dictating Physician: MD ARANGO RISA Signed Date and Time: 12/24/2020 11:51 am Signed by: MD ARANGO RISA Transcribed Date and Time: 12/24/2020 11:27 [facility] Work Phone: Culture, UrineOrdered By: Ellen Szymanski on 12-24-2020 Bacteria identified Cx Nom (U) Escherichia coli Abnormal [email or web address] Work Phone: Bacteria identified Cx Nom (U) 10,000-50,000 CFU/ml This phenotype is suggestive of an ESBL-producing organism. Treatment with beta-lactam antibiotics other than carbapenems may not be effective. An ID consult may be warranted. [email or web address] Work Phone: Interpretation and review of laboratory results Abnormal [facility] Work Phone: Test Performed by [facility], [address] [place] [id number] [facility] Work Phone: XR ABDOMEN (KUB) (SINGLE AP VIEW)Ordered By: Jen Canas on 12-24-2020 Patient Name: ADDIS TORRES Diagnostic Radiology ACCESSION EXAM DATE/TIME PROCEDURE ORDERING PROVIDER [id number] 12/24/2020 09:14 EDT CR Abdomen AP MD CANAS ABBY GAIL CPT code 55577 Reason For Exam (CR Abdomen AP) stent placement Report Abdomen: 12/24/2020. Clinical Information: Stent placement. Findings: A single supine view of the abdomen was compared to the prior day's study. The double-J ureteral stent on the left is unchanged. There continues to be residual contrast throughout the colon. Report Dictated on --- Final --- Dictated: 12/24/2020 9:19 am Dictating Physician: MD ARANGO RISA Signed Date and Time: 12/24/2020 9:20 am Signed by: MD ARANGO RISA Transcribed Date and Time: 12/24/2020 9:19 [facility] Work Phone: [facility] Results From [facility] - 12/24/2020 9:21 AM EDT Patient Name: ADDIS TORRES Diagnostic Radiology ACCESSION EXAM DATE/TIME PROCEDURE ORDERING PROVIDER [id number] 12/24/2020 09:14 EDT CR Abdomen AP MD CANAS ABBY GAIL CPT code 46927 Reason For Exam (CR Abdomen AP) stent placement Report Abdomen: 12/24/2020. Clinical Information: Stent placement. Findings: A single supine view of the abdomen was compared to the prior day's study. The double-J ureteral stent on the left is unchanged. There continues to be residual contrast throughout the colon. Report Dictated on --- Final --- Dictated: 12/24/2020 9:19 am Dictating Physician: MD ARANGO RISA Signed Date and Time: 12/24/2020 9:20 am Signed by: MD ARANGO RISA Transcribed Date and Time: 12/24/2020 9:19 [facility] Work Phone: BASIC METABOLIC PANELOrdered By: Ziyad Whipple on 12-23-2020 Anion gap [Moles/Vol] 7 mmol/L 3 - 13 mmol/L [facility] Work Phone: Calcium [Mass/Vol] 9.3 mg/dL 8.4 - 10. 4 mg/dL [facility] Work Phone: Chloride [Moles/Vol] 103 mmol/L 98 - 10 7 mmol/L [facility] Work Phone: CO2 [Moles/Vol] 25 mmol/L 22 - 30 mmol/L [facility] Work Phone: Creatinine [Mass/Vol] 0.84 mg/dL 0.52 - 1.25 mg/dL [facility] Work Phone: EGFR IF NonAfrican [place]ian >90.0 >60 mL/min [facility] Work Phone: Comment on above: KDIGO guidelines pro vide the following GFR categories: Stage GFR(ml/min/1.73 m2) Terms G1 >=90 Normal or high G2 60-89 Mildly decreased* G3a 45-59 Mildly to moderately decreased G3b 30-44 Moderately to severely decreased G4 15-29 Severely decreased G5 <15 Kidney failure *Relative to young adult level. In the absence of evidence of kidney damage, neither GFR category G1 nor G2 fulfill the criteria for CKD. The CKD-EPI equation is validated in individuals 18 years of age and older. Currently the best equation for estimating glomerular filtration rate (GFR) from serum creatinine in children is the Bedside Boyer equation. It is less accurate in patients with extremes of muscle mass, restriction of dietary protein, ingestion of creatine, extra-renal metabolism of creatinine, or treatment with medications that affect renal tubular creatinine secretion. GFR/1.73 sq M.predicted among blacks MDRD (S/P/Bld) [Vol rate/Area] mL/min/{1.73_m2} >60 mL/min [facility] Work Phone: Glucose [Mass/Vol] 163 mg/dL High 70 - 100 mg/dL [facility] Work Phone: 1 Interpretation and review of laboratory results Abnormal [facility] Work Phone: 1 Potassium [Moles/Vol] 4.3 mmol/L 3.5 - 5.1 mmol/L [facility] Work Phone: Sodium [Moles/Vol] 136 mmol/L 135 - 145 mmol/L [facility] Work Phone: Urea nitrogen (BldV) [Mass/Vol] 16 mg/dL 7 - 20 mg/dL [facility] Work Phone: Test Performed by [facility], [address] [place] [id number] [facility] Work Phone: CBC WITH AUTO DIFFERENTIALOr dered By: Roxann Wilson on 12-23-2020 Absolute Baso # 0.0 10*3/uL 0.0 - 0.2 10*3/uL [facility] Work Phone: Absolute Neut # 18.8 10*3/uL High 1.8 - 7.0 10*3/uL [facility] Work Phone: 222 Basophils/100 WBC (Bld) 0.1 % 0.0 - 2.0 % [facility] Work Phone: Eosinophils (Bld) [#/Vol] 0.0 10*3/uL 0.0 - 0.5 10*3/uL [facility] Work Phone: 222 Eosinophils/100 WBC (Bld) 0.0 % Low 1.0 - 6.0 % [facility] Work Phone: 222 Granulocytes/100 WBC (Bld) 92.7 % High 40.0 - 80.0 % [facility] Work Phone: Hematocrit (Bld) [Volume fraction] 34.5 % Low 35.0 - 47.0 % [facility] Work Phone: Hemoglobin.gastrointesti nal spec 1 Ql (Stl) 11.1 g/dL Low 11.7 - 16.0 g/dL [facility] Work Phone: Interpretation and review of laboratory results Abnormal [facility] Work Phone: [phone] 222 Lymphocytes (Bld) [#/Vol] 0.8 10*3/uL Low 1.0 - 4.3 10*3/uL [facility] Work Phone: 1() 222 Lymphocytes/100 WBC (Bld) 3.9 % Low 20.0 - 40.0 % [facility] Work Phone: 1() 222 MCH (RBC) [Entitic mass] 26.3 pg 26. 0 - 34.0 pg [facility] Work Phone: 1() 222 MCHC (RBC) [Mass/Vol] 32.3 % 32.0 - 36.0 % [facility] Work Phone: 1() 222 MCV (RBC) [Entitic vol] 81.4 fL 79.0 - 98.0 fL [facility] Work Phone: () 222 Monocytes (Bld) [#/Vol] 0.7 10*3/uL 0.0 - 0.8 10*3/uL [facility] Work Phone: 1() 222 Monocytes/100 WBC (Bld) 3.3 % 2.0 - 10.0 % [facility] Work Phone: 1() 222 Platelet distribution width (Bld) [Ratio] 21.9 % High 11.5 - 14.5 % [facility] Work Phone: 1() 222 Platelet mean volume (Bld) [Entitic vol] 8.6 fL 7.4 - 10.4 fL [facility] Work Phone: () 222 Platelets (Bld) [#/Vol] 267 10*3/uL 140 - 440 10*3/uL [facility] Work Phone: () 222 RBC (Bld) [#/Vol] 4.24 10*6/uL 3.80 - 5.20 10*6/uL [facility] Work Phone: [phone] WBC (Bld) [#/Vol] 20.3 10*3/uL High 3.6 - 10.7 10*3/uL [facility] Work Phone: [phone] Test Performed by [facility], [address] [place] [id number] [facility] Work Phone: [phone] XR ABDOMEN (KUB) (SINGLE AP VIEW)Ordered By: Tye Jose on 12-23-2020 Patient Name: ADDIS TORRES Diagnostic Radiology ACCESSION EXAM DATE/TIME PROCEDURE ORDERING PROVIDER [id number] 12/23/2020 06:51 EDT CR Abdomen AP TYE GARCIA CPT code 93997 Reason For Exam (CR Abdomen AP) Left ureteral injury. Stent placed in OR on 12/22/20 (4.5 Fr., thinner than usual size) - evaluate stent position Report ABDOMEN: CLINICAL INDICATION: Left ureteral injury. Stent placed in OR on 12/22/20 (4.5 Fr., thinner than usual size) - evaluate stent position. TECHNIQUE: Supine abdomen and pelvis COMPARISON: None. FINDINGS: Left-sided double-J ureteral stent noted with distal locking loop projected over the bladder. The proximal end of the ureteral stent projects over the left kidney. There is contrast noted throughout the large bowel. The bowel gas pattern is otherwise unremarkable. No abnormal soft tissue calcifications are noted. The osseous structures are unremarkable. IMPRESSION: Left double-J ureteral stent in place as described above. Report Dictated on --- Final --- Dictated: 12/23/2020 9:23 am Dictating Physician: MD ARMENDARIZ KEVIN Signed Date and Time: 12/23/2020 9:25 am Signed by: MD ARMENDARIZ KEVIN Transcribed Date and Time: 12/23/2020 9:23 [facility] Work Phone: [facility] Results From [facility] - 12/23/2020 9:26 AM EDT Patient Name: ADDIS TORRES Diagnostic Radiology ACCESSION EXAM DATE/TIME PROCEDURE ORDERING PROVIDER [id number] 12/23/2020 06:51 EDT CR Abdomen AP TYE GARCIA CPT code 67222 Reason For Exam (CR Abdomen AP) Left ureteral injury. Stent placed in OR on 12/22/20 (4.5 Fr., thinner than usual size) - evaluate stent position Report ABDOMEN: CLINICAL INDICATION: Left ureteral injury. Stent placed in OR on 12/22/20 (4.5 Fr., thinner than usual size) - evaluate stent position. TECHNIQUE: Supine abdomen and pelvis COMPARISON: None. FINDINGS: Left-sided double-J ureteral stent noted with distal locking loop projected over the bladder. The proximal end of the ureteral stent projects over the left kidney. There is contrast noted throughout the large bowel. The bowel gas pattern is otherwise unremarkable. No abnormal soft tissue calcifications are noted. The osseous structures are unremarkable. IMPRESSION: Left double-J ureteral stent in place as described above. Report Dictated on --- Final --- Dictated: 12/23/2020 9:23 am Dictating Physician: MD ARMENDARIZ KEVIN Signed Date and Time: 12/23/2020 9:25 am Signed by: MD ARMENDARIZ KEVIN Transcribed Date and Time: 12/23/2020 9:23 [facility] Work Phone: CT ABDOMEN PELVIS W WO CONTR ASTOrdered By: Jennifer Szymanski on 12-22-2020 [id number] Tomography ACCESSION EXAM DATE/TIME PROCEDURE ORDERING PROVIDER [id number] 12/22/2020 00:[address] Abdomen/Pelvis w/ [id number] -COLIN, + w/o Contrast JENNIFER CPT code 62241 Q9967 Reason For Exam (CT Abdomen/Pelvis w/ + w/o Contrast) possible left ureter injury, new onset LLQ pain, POD #3 s/p Robotic hysterectomy Report CT ABDOMEN AND PELVIS WITHOUT AND WITH CONTRAST - INCLUDING 3D UROGRAPHY CLINICAL INDICATION: Robotic hysterectomy with left lower quadrant pain and suspected ureteral injury Scan Parameters: Transaxial sequence through the abdomen and pelvis initially without contrast with low-dose technique. Patient received some oral contrast as well. Following intravenous injection of 38.5 mL of 350 mg% contrast followed by three minute delay and additional injection of the remaining 38.5 mL, post contrast sequence was performed. 15 minute delayed imaging was also performed.. Multiplanar and 3D MIP reconstruction was performed by the radiologist on an independent workstation. Dose reduction was employed with automated exposure control. COMPARISON: None. FINDINGS: Chest base: Atelectasis noted at the lung bases. There is no pleural fluid. Liver: Normal size and contour. No focal lesion. Biliary tree: Normal caliber. Spleen: Normal. Adrenals: Normal. Pancreas: Normal Kidneys/Collecting systems: No calculi are identified in the proximal collecting systems. Symmetric contrast excretion without evidence of hydronephrosis. The right ureter continues into the urinary bladder. There is irregular contrast collection extending from the level of the left mid ureter across the midline to the right retroperitoneal space on the three-minute delayed sequence and there is a much larger contrast collection throughout the region on the 15 minute delayed sequence. There is extensive nonenhanced retroperitoneal fluid Computed Tomography Report attenuation within the mid abdomen extending into the pelvis. The largest collection is noted in the presacral space with an AP dimension of 3 cm. There is no enhancement within the left distal ureter. Free fluid: There is only a small amount of free intraperitoneal fluid the left paracolic gutter. Retroperitoneal/mesenteri c lymphadenopathy: None. Aorta: Normal caliber. Bowel: Normal caliber. Abdominal wall: Normal. Bladder: No filling defects are identified. Wall thickness is normal. Other pelvic organs/viscera: Uterus is absent. There are several gas bubbles in the region surrounding the bladder related to surgery. No mass is identified. Pelvic lymphadenopathy: None. Osseous structures: Normal. IMPRESSION: Complete disruption of the left mid ureter with active flow of urine into the retroperitoneal space with extensive retroperitoneal fluid extending to the pelvis. CRITICAL TEST RESULT COMMUNICATION: A message was sent via [employer] to JENNIFER SZYMANSKI on 12/22/2020 at 1:38 AM EDT. Report Dictated on Workstation: [email or web address]-REMOTE --- Final --- Dictated: 12/22/2020 1:38 am Dictating Physician: MD OSBORN JEFFREY Signed Date and Time: 12/22/2020 1:50 am Signed by: MD OSBORN JEFFREY Transcribed Date and Time: 12/22/2020 1:38 [facility] Work Phone: [facility], [facility] Incoming Radiology Results From [facility] - 12/22/2020 1:51 AM EDT Patient Name: ADDIS TORRES Computed Tomography ACCESSION EXAM DATE/TIME PROCEDURE ORDERING PROVIDER [id number] 12/22/2020 00:[address] Abdomen/Pelvis w/ [id number] -SZYMANSKI, + w/o Contrast JENNIFER CPT code 63247 Q9967 Reason For Exam (CT Abdomen/Pelvis w/ + w/o Contrast) possible left ureter injury, new onset LLQ pain, POD #3 s/p Robotic hysterectomy Report CT ABDOMEN AND PELVIS WITHOUT AND WITH CONTRAST - INCLUDING 3D UROGRAPHY CLINICAL INDICATION: Robotic hysterectomy with left lower quadrant pain and suspected ureteral injury Scan Parameters: Transaxial sequence through the abdomen and pelvis initially without contrast with low-dose technique. Patient received some oral contrast as well. Following intravenous injection of 38.5 mL of 350 mg% contrast followed by three minute delay and additional injection of the remaining 38.5 mL, post contrast sequence was performed. 15 minute delayed imaging was also performed.. Multiplanar and 3D MIP reconstruction was performed by the radiologist on an independent workstation. Dose reduction was employed with automated exposure control. COMPARISON: None. FINDINGS: Chest base: Atelectasis noted at the lung bases. There is no pleural fluid. Liver: Normal size and contour. No focal lesion. Biliary tree: Normal caliber. Spleen: Normal. Adrenals: Normal. Pancreas: Normal Kidneys/Collecting systems: No calculi are identified in the proximal collecting systems. Symmetric contrast excretion without evidence of hydronephrosis. The right ureter continues into the urinary bladder. There is irregular contrast collection extending from the level of the left mid ureter across the midline to the right retroperitoneal space on the three-minute delayed sequence and there is a much larger contrast collection throughout the region on the 15 minute delayed sequence. There is extensive nonenhanced retroperitoneal fluid Computed Tomography Report attenuation within the mid abdomen extending into the pelvis. The largest collection is noted in the presacral space with an AP dimension of 3 cm. There is no enhancement within the left distal ureter. Free fluid: There is only a small amount of free intraperitoneal fluid the left paracolic gutter. Retroperitoneal/mesenteri c lymphadenopathy: None. Aorta: Normal caliber. Bowel: Normal caliber. Abdominal wall: Normal. Bladder: No filling defects are identified. Wall thickness is normal. Other pelvic organs/viscera: Uterus is absent. There are several gas bubbles in the region surrounding the bladder related to surgery. No mass is identified. Pelvic lymphadenopathy: None. Osseous structures: Normal. IMPRESSION: Complete disruption of the left mid ureter with active flow of urine into the retroperitoneal space with extensive retroperitoneal fluid extending to the pelvis. CRITICAL TEST RESULT COMMUNICATION: A message was sent via [employer] to JENNIFER SZYMANSKI on 12/22/2020 at 1:38 AM EDT. Report Dictated on Workstation: [facility] --- Final --- Dictated: 12/22/2020 1:38 am Dictating Physician: MD OSBORN JEFFREY Signed Date and Time: 12/22/2020 1:50 am Signed by: MD OSBORN JEFFREY Transcribed Date and Time: 12/22/2020 1:38 [facility] Work Phone: PROTIME INROrdered By: Keely Guan on 12-22-2020 INR Coag (Bld) [Relative time] 1.0 {INR} [facility] Work Phone: Comment on above: Recommended Anticoag ulant Therapy: SEE BELOW ----- INR of 2.0 - 3.0 : - Prophylaxis of Venous Thrombosis (high-risk surgery) - Treatment of Venous Thrombosis - Treatment of Pulmonary Embolism (Includes tissue heart valves, Acute Myocardial Infarction to prevent systemic embolism, Valvular Heart Disease, and Atrial Fibrillation) ----- INR of 2.5 - 3.5 : - Mechanical Prosthetic Valves (high risk) - If oral anticoagulant therapy is used to prevent Myocardial Infarction PT Coag (PPP) [Time] 10.8 s 9.0 - 1 2.0 s [facility] Work Phone: Comment on above: . Test Performed by [facility], [facility] [place] [address] [facility] Work Phone: ProcalcitoninOrdered By: Ronna Szymanski on 12-22-2020 Interpretation See Below [facility] Work Phone: Comment on above: PCT <0.50 = Low risk of severe sepsis and/or septic shock. PCT >2.00 = High risk of severe sepsis and/or septic shock. Procalcitonin <0.10 <0.10 ng/mL [facility] Work Phone: Test Performed by [facility], [facility] [place] [address] [facility] Work Phone: Special treatments and proce duresOrdered By: Pawel Guan on 12-22-2020 Patient Name: ADDIS TORRES Special Procedures ACCESSION EXAM DATE/TIME PROCEDURE ORDERING PROVIDER [id number] 12/22/2020 11:00 EDT XA Special Angiography [id number] -ROGE PAWEL Procedure Reason For Exam (XA Special Angiography Procedure) Left nephrostomy tube Report CLINICAL HISTORY: Ureteral transection Procedures: 1. Intravenous pyelogram 2. Attempted left nephrostomy tube placement Physician: Dr. Armendariz MEDICATIONS: Local lidocaine, 4 mg Versed IV, 200 mcg fentanyl IV EBL: Minimal. Contrast: 40 mL Isovue-300 Specimen sent: None COMPLICATIONS: None immediate Fluoroscopy Time: 9.9 minutes. Angiographic runs: 0 Fluoroscopic spot images: 0 Fluoroscopic saved images were obtained. These images do NOT add additional exposure to ionizing radiation and were captured electronically from the imaging chain. Procedural details: Prior to the procedure red rules were performed which included patient name, date of , and procedure type. All of the risk, benefits, and alternative treatments were explained to the patient and informed consent was obtained and documented. The patient was brought into the angiography suite and placed in the prone position. Maximal sterile barrier technique was utilized. All elements of maximal sterile barrier technique were used including a hat, mask, sterile gown, sterile gloves, and a sterile drape. Appropriate hand hygiene using 2 percent chlorhexidine for cutaneous antisepsis was utilized. A sterile ultrasound probe cover and sterile ultrasound gel was utilized. The left kidney was interrogated with ultrasound. There was no hydronephrosis. No dilated posterior calyx amenable to ultrasound-guided puncture. The overlying subcutaneous tissues were anesthetized using one percent lidocaine. Under direct ultrasound visualization, a 21-gauge micropuncture needle was advanced into the posterior superior region Special Procedures Report of the left kidney. Gentle contrast injection through the needle as it was withdrawn showed no urinary collecting system opacification. Subsequently, intravenous pyelography was performed with injection of 30 mL of contrast intravenously. Multiple additional attempts were then made to access the urinary collecting system with ultrasound and fluoroscopic guidance. A needle was then advanced into a posterior superior renal calyx, and antegrade nephrostogram was performed, confirming intraluminal position of the needle tip. However, the 0.018 inch microwire could not be advanced. Additional attempts were then made, however, the patient continued to experience severe pain despite local anesthesia and moderate sedation. At this point, the procedure was terminated. There were no immediate complications. FINDINGS: Ultrasound of the left kidney shows no hydronephrosis. Intravenous pyelography shows nondilated renal collecting system. IMPRESSION: Unsuccessful ultrasound and fluoroscopic guided placement of a left nephrostomy tube for urinary diversion due to nondilated collecting system and inadequate anesthesia. Additional attempts may be considered with deep sedation provided by anesthesiology. Report Dictated on --- Final --- Dictated: 12/22/2020 2:25 pm Dictating Physician: MD ARMENDARIZ KEVIN Signed Date and Time: 12/22/2020 2:33 pm Signed by: MD ARMENDARIZ KEVIN Transcribed Date and Time: 12/22/2020 2:25 [facility] Work Phone: [place], [facility] Incoming Radiology Results From [facility] - 12/22/2020 2:34 PM EDT Patient Name: ADDIS TORRES Special Procedures ACCESSION EXAM DATE/TIME PROCEDURE ORDERING PROVIDER [id number] 12/22/2020 11:00 EDT XA Special Angiography [id number] -PAWEL GUAN Procedure Reason For Exam (XA Special Angiography Procedure) Left nephrostomy tube Report CLINICAL HISTORY: Ureteral transection Procedures: 1. Intravenous pyelogram 2. Attempted left nephrostomy tube placement Physician: Dr. Armendariz MEDICATIONS: Local lidocaine, 4 mg Versed IV, 200 mcg fentanyl IV EBL: Minimal. Contrast: 40 mL Isovue-300 Specimen sent: None COMPLICATIONS: None immediate Fluoroscopy Time: 9.9 minutes. Angiographic runs: 0 Fluoroscopic spot images: 0 Fluoroscopic saved images were obtained. These images do NOT add additional exposure to ionizing radiation and were captured electronically from the imaging chain. Procedural details: Prior to the procedure red rules were performed which included patient name, date of , and procedure type. All of the risk, benefits, and alternative treatments were explained to the patient and informed consent was obtained and documented. The patient was brought into the angiography suite and placed in the prone position. Maximal sterile barrier technique was utilized. All elements of maximal sterile barrier technique were used including a hat, mask, sterile gown, sterile gloves, and a sterile drape. Appropriate hand hygiene using 2 percent chlorhexidine for cutaneous antisepsis was utilized. A sterile ultrasound probe cover and sterile ultrasound gel was utilized. The left kidney was interrogated with ultrasound. There was no hydronephrosis. No dilated posterior calyx amenable to ultrasound-guided puncture. The overlying subcutaneous tissues were anesthetized using one percent lidocaine. Under direct ultrasound visualization, a 21-gauge micropuncture needle was advanced into the posterior superior region Special Procedures Report of the left kidney. Gentle contrast injection through the needle as it was withdrawn showed no urinary collecting system opacification. Subsequently, intravenous pyelography was performed with injection of 30 mL of contrast intravenously. Multiple additional attempts were then made to access the urinary collecting system with ultrasound and fluoroscopic guidance. A needle was then advanced into a posterior superior renal calyx, and antegrade nephrostogram was performed, confirming intraluminal position of the needle tip. However, the 0.018 inch microwire could not be advanced. Additional attempts were then made, however, the patient continued to experience severe pain despite local anesthesia and moderate sedation. At this point, the procedure was terminated. There were no immediate complications. FINDINGS: Ultrasound of the left kidney shows no hydronephrosis. Intravenous pyelography shows nondilated renal collecting system. IMPRESSION: Unsuccessful ultrasound and fluoroscopic guided placement of a left nephrostomy tube for urinary diversion due to nondilated collecting system and inadequate anesthesia. Additional attempts may be considered with deep sedation provided by anesthesiology. Report Dictated on --- Final --- Dictated: 12/22/2020 2:25 pm Dictating Physician: MD ARMENDARIZ KEVIN Signed Date and Time: 12/22/2020 2:33 pm Signed by: MD ARMENDARIZ KEVIN Transcribed Date and Time: 12/22/2020 2:25 [facility] Work Phone: UrinalysisOrdered By: Ramiro Szymanski on 12-22-2020 Appearance (U) Clear Clear NA [facility] Work Phone: Comment on above: . Bilirubin Urine Negative Negative mg/dL [facility] Work Phone: Comment on above: . Color (U) Light-Yellow Lt. Yellow NA [facility] Work Phone: [phone] Comment on above: . Glucose, Ur Normal Normal (<70) mg/dL [facility] Work Phone: [phone] Comment on above: . Interpretation and review of laboratory results Abnormal [facility] Work Phone: [phone] Ketones Ql (U) Negative Negative mg/dL [facility] Work Phone: Comment on above: . LEUKOCYTES, UA Negative Negative Nesha/uL [facility] Work Phone: 1 Comment on above: . Nitrite, Urine Negative Negative NA [facility] Work Phone: [phone] Comment on above: . Occult Blood,Urine Negative Negative mg/dL [facility] Work Phone: 1 Comment on above: . pH (U) 7.0 [pH] [facility] Work Phone: [phone] Comment on above: . Specific [place], Urine >1.030 Abnormal S [facility] Work Phone: 1 Comment on above: . Total Protein, Urine Negative Negativ e mg/dL [facility] Work Phone: 1 Comment on above: . Urobilinogen, Urine Normal Normal (0-1) mg/dL [facility] Work Phone: [phone] Comment on above: . Test Performed by [facility], [facility] [place] [address] [facility] Work Phone: [phone] Add On Lab TestOrdered By: Korey Szymanski on 12-21-2020 Add On Accepted [facility] Work Phone: Comment on above: Specimen available & acceptable for analysis. Test Performed by [facility], [employer] [place] [address] [facility] Work Phone: CBC Auto DifferentialOrdered By: Jen Canas on 12-21-2020 Absolute Baso # 0.0 10*3/uL 0.0 - 0.2 10*3/uL [facility] Work Phone: [phone] Absolute Neut # 14.0 10*3/uL High 1.8 - 7.0 10*3/uL [facility] Work Phone: [phone] Basophils/100 WBC (Bld) 0.2 % 0.0 - 2.0 % [facility] Work Phone: [phone] Eosinophils (Bld) [#/Vol] 0.3 10*3/uL 0.0 - 0.5 10*3/uL [facility] Work Phone: [phone] Eosinophils/100 WBC (Bld) 1.4 % 1.0 - 6.0 % [facility] Work Phone: [phone] Granulocytes/100 WBC (Bld) 78.4 % 40.0 - 80.0 % [facility] Work Phone: [phone] Hematocrit (Bld) [Volume fraction] 38.9 % 35.0 - 47.0 % [facility] Work Phone: [phone] Hemoglobin.gastrointesti nal spec 1 Ql (Stl) 12.4 g/dL 11.7 - 16.0 g/dL [facility] Work Phone: [phone] Interpretation and review of laboratory results [facility] Work Phone: [phone] Lymphocytes (Bld) [#/Vol] 2.6 10*3/uL 1.0 - 4.3 10*3/uL [facility] Work Phone: [phone] Lymphocytes/100 WBC (Bld) 14.3 % Low 20.0 - 40.0 % [facility] Work Phone: [phone] MCH (RBC) [Entitic mass] 25.9 pg Low 26. 0 - 34.0 pg [facility] Work Phone: [phone] MCHC (RBC) [Mass/Vol] 31.9 % Low 32.0 - 36.0 % [facility] Work Phone: [phone] MCV (RBC) [Entitic vol] 81.0 fL 79.0 - 98.0 fL [facility] Work Phone: [phone] Monocytes (Bld) [#/Vol] 1.0 10*3/uL High 0.0 - 0.8 10*3/uL [facility] Work Phone: [phone] Monocytes/100 WBC (Bld) 5.7 % 2.0 - 10.0 % [facility] Work Phone: Platelet distribution width (Bld) [Ratio] 23.6 % High 11.5 - 14.5 % [facility] Work Phone: Platelet mean volume (Bld) [Entitic vol] 8.5 fL 7.4 - 10.4 fL [facility] Work Phone: Platelets (Bld) [#/Vol] 286 10*3/uL 140 - 440 10*3/uL [facility] Work Phone: RBC (Bld) [#/Vol] 4.81 10*6/uL 3.80 - 5.20 10*6/uL [facility] Work Phone: WBC (Bld) [#/Vol] 18.0 10*3/uL High 3.6 - 10.7 10*3/uL [facility] Work Phone: Test Performed by [facility], [address] [place] [id number] [facility] Work Phone: Comprehensive Metabolic Pane lOrdered By: Jen Canas on 12-21-2020 Albumin [Mass/Vol] 4.0 g/dL 3.5 - 5.0 g/dL [facility] Work Phone: [phone] Comment on above: Slightly hemolysed, interpret with caution. ALP (Bld) [Catalytic activity/Vol] 27 U/L Low 38 - 126 U/L [facility] Work Phone: Comment on above: Slightly hemolysed, interpret with caution. ALT [Catalytic activity/Vol] 15 U/L 0 - 34 U/L [facility] Work Phone: Comment on above: The ALT test is perf ormed by an updated assay method. Please note that the reference intervals have been changed and are now sex specific. Anion gap [Moles/Vol] 5 mmol/L 3 - 13 mmol/L [facility] Work Phone: AST [Catalytic activity/Vol] 54 U/L High 15 - 46 U/L [facility] Work Phone: [phone] Comment on above: Slightly hemolysed, interpret with caution. Bilirubin [Mass/Vol] 0.6 mg/dL 0.2 - 1 .3 mg/dL [facility] Work Phone: Calcium [Mass/Vol] 9.1 mg/dL 8.4 - 10. 4 mg/dL [facility] Work Phone: [phone] Chloride [Moles/Vol] 104 mmol/L 98 - 10 7 mmol/L [facility] Work Phone: [phone] CO2 [Moles/Vol] 27 mmol/L 22 - 30 mmol/L [facility] Work Phone: [phone] Creatinine [Mass/Vol] 1.08 mg/dL 0.52 - 1.25 mg/dL [facility] Work Phone: [phone] EGFR IF NonAfrican [place]ian 73.4 mL/min >60 [facility] Work Phone: [phone] Comment on above: KDIGO guidelines pro vide the following GFR categories: Stage GFR(ml/min/1.73 m2) Terms G1 >=90 Normal or high G2 60-89 Mildly decreased* G3a 45-59 Mildly to moderately decreased G3b 30-44 Moderately to severely decreased G4 15-29 Severely decreased G5 <15 Kidney failure *Relative to young adult level. In the absence of evidence of kidney damage, neither GFR category G1 nor G2 fulfill the criteria for CKD. The CKD-EPI equation is validated in individuals 18 years of age and older. Currently the best equation for estimating glomerular filtration rate (GFR) from serum creatinine in children is the Bedside Boyer equation. It is less accurate in patients with extremes of muscle mass, restriction of dietary protein, ingestion of creatine, extra-renal metabolism of creatinine, or treatment with medications that affect renal tubular creatinine secretion. Free PSA/Total PSA [Mass fraction] 7.3 g/dL 6.3 - 8.2 g/dL [facility] Work Phone: Comment on above: Slightly hemolysed, interpret with caution. GFR/1.73 sq M.predicted among blacks MDRD (S/P/Bld) [Vol rate/Area] 85.0 mL/min/{1.73_m2} >60 [facility] Work Phone: Glucose [Mass/Vol] 86 mg/dL 70 - 100 mg/dL [facility] Work Phone: Interpretation and review of laboratory results Abnormal [facility] Work Phone: 1 Potassium [Moles/Vol] 5.0 mmol/L 3.5 - 5.1 mmol/L [facility] Work Phone: 1 Comment on above: Slightly hemolysed, interpret with caution. Sodium [Moles/Vol] 137 mmol/L 135 - 145 mmol/L [facility] Work Phone: 1 Urea nitrogen (BldV) [Mass/Vol] 16 mg/dL 7 - 20 mg/dL [facility] Work Phone: 1 Test Performed by [facility], [facility] [place] [address] [facility] Work Phone: LACTIC ACID, PLASMAOrdered B y: Marlon Zimmer on 12-21-2020 Lactate [Moles/Vol] 1.3 mmol/L 0.7 - 2. 0 mmol/L [facility] Work Phone: 1 Test Performed by [facility], [facility] [place] [address] [facility] Work Phone: TYPE AND SCREENOrdered By: Kristy Canas on 12-21-2020 ABO Grouping AB [facility] Work Phone: Rh Type Positive [facility] Work Phone: Test Performed by [facility], [facility] [place] [address] [facility] Work Phone: [phone] CBCon 12-11-2020 Erythrocyte distribution width (RBC) [Ratio] 27.3 % High 11.5 - 14.5 % [facility] Work Phone: 1 Hematocrit (Bld) [Volume fraction] 39.7 % 35.0 - 47.0 % [facility] Work Phone: Hemoglobin (Bld) [Mass/Vol] 12.6 g/dL 11.7 - 16.0 g/dL [facility] Work Phone: 1 Interpretation and review of laboratory results Abnormal [facility] Work Phone: 1 MCH (RBC) [Entitic mass] 25.4 pg Low 26. 0 - 34.0 pg [facility] Work Phone: MCHC (RBC) [Mass/Vol] 31.7 % Low 32.0 - 36.0 % [facility] Work Phone: MCV (RBC) [Entitic vol] 80.3 fL 79.0 - 98.0 fL [facility] Work Phone: Platelet mean volume (Bld) [Entitic vol] 8.8 fL 7.4 - 10.4 fL [facility] Work Phone: Platelets (Bld) [#/Vol] 343 10*3/uL 140 - 440 10*3/uL [facility] Work Phone: RBC (Bld) [#/Vol] 4.94 10*6/uL 3.80 - 5.20 10*6/uL [facility] Work Phone: WBC (Bld) [#/Vol] 9.0 10*3/uL 3.6 - 10.7 10*3/uL [facility] Work Phone: Test Performed by [facility], [address] [place] [id number] [facility] Work Phone: Vital Signs Date Time Vital Sign Value Performing Clinician Facility 03-15-2025 08:01-0400 Body temperature 98.2 [degF] Heriberto Rowley MD Work Phone: [facility] 03-15-2025 08:01-0400 Diastolic blood pressure 87 mm[Hg] Heriberto Rowley MD Work Phone: [facility] 03-15-2025 08:01-0400 Heart rate 111 /min Heriberto Rowley MD Work Phone: [facility] 03-15-2025 08:01-0400 Respiratory rate 18 /min Heriberto Rowley MD Work Phone: [facility] 03-15-2025 08:01-0400 SaO2% (BldA) [Mass fraction] 98 % Heriberto Rowley MD Work Phone: [facility] 03-15-2025 08:01-0400 Systolic blood pressure 138 mm[Hg] Heriberto Rowley MD Work Phone: [facility] 03-15-2025 05:30-0400 Body height 170.2 cm Heriberto Rowley MD Work Phone: [facility] 03-15-2025 05:30-0400 Body mass index (BMI) [Ratio] 33.67 kg/m2 Heriberto Rowley MD Work Phone: [facility] 03-15-2025 05:30-0400 Body weight 97.52 kg Heriberto Rowley MD Work Phone: [facility] 02-15-2025 14:02-0400 Body height 171.5 cm Fermín Ortiz MD Work Phone: [facility] 02-15-2025 14:02-0400 Body mass index (BMI) [Ratio] 31.94 kg/m2 Fermín Ortiz MD Work Phone: [facility] 02-15-2025 14:02-0400 Body temperature 98.29 [degF] Fermín Ortiz MD Work Phone: [facility] 02-15-2025 14:02-0400 Body weight 93.89 kg Fermín Ortiz MD Work Phone: [facility] 02-15-2025 14:02-0400 Diastolic blood pressure 98 mm[Hg] Fermín Ortiz MD Work Phone: [facility] 02-15-2025 14:02-0400 Heart rate 106 /min Fermín Ortiz MD Work Phone: [facility] 02-15-2025 14:02-0400 Respiratory rate 20 /min Fermín Ortiz MD Work Phone: [facility] 02-15-2025 14:02-0400 SaO2% (BldA) [Mass fraction] 98 % Fermín Ortiz MD Work Phone: [facility] 02-15-2025 14:02-0400 Systolic blood pressure 141 mm[Hg] Fermín Ortiz MD Work Phone: [facility] 01-02-2025 14:30-0400 Diastolic blood pressure 85 mm[Hg] Xavier Mark MD Work Phone: [facility] 01-02-2025 14:30-0400 Heart rate 86 /min Xavier Mark MD Work Phone: [facility] 01-02-2025 14:30-0400 Respiratory rate 21 /min Xavier Mark MD Work Phone: [facility] 01-02-2025 14:30-0400 SaO2% (BldA) [Mass fraction] 98 % Xavier Mark MD Work Phone: [facility] 01-02-2025 14:30-0400 Systolic blood pressure 138 mm[Hg] Xavier Mark MD Work Phone: [facility] 01-02-2025 14:15-0400 Body temperature 98.4 [degF] Xavier Mark MD Work Phone: [facility] 12-27-2024 21:19-0400 Diastolic Blood Pressure Non-Invasive 84 mm[Hg] ALEN ALETHA DO [facility] 12-27-2024 21:19-0400 Respiratory rate 16 /min ALEN ALETHA DO [facility] 12-27-2024 21:19-0400 Systolic Blood Pressure Non-Invasive 128 mm[Hg] ALEN ALETHA DO [facility] 12-27-2024 20:11-0400 Diastolic Blood Pressure Non-Invasive 83 mm[Hg] ALEN ALETHA DO [facility] 12-27-2024 20:11-0400 Heart rate 107 /min ALEN ALETHA DO [facility] 12-27-2024 20:11-0400 Mean blood pressure 94 mm[Hg] ALEN ALETHA DO [facility] 12-27-2024 20:11-0400 Respiratory rate 18 /min ALEN ALETHA DO [facility] 12-27-2024 20:11-0400 Systolic Blood Pressure Non-Invasive 120 mm[Hg] ALEN POMPA DO [facility] 12-27-2024 17:34-0400 Body height 170.2 cm ALEN POMPA DO [facility] 12-27-2024 17:34-0400 Body temperature 97.7 [degF] ALEN POMPA DO [facility] 12-27-2024 17:34-0400 Body weight 91.5 kg ALEN POMPA DO [facility] 12-27-2024 17:34-0400 Diastolic Blood Pressure Non-Invasive 89 mm[Hg] ALEN POMPA DO [facility] 12-27-2024 17:34-0400 Heart rate 122 /min ALEN POMPA DO [facility] 12-27-2024 17:34-0400 Respiratory rate 26 /min ALEN POMPA DO [facility] 12-27-2024 17:34-0400 Systolic Blood Pressure Non-Invasive 162 mm[Hg] ALEN POMPA DO [facility] 12-23-2024 09:22-0400 Body height 170.2 cm Nino Butler MD Work Phone: [facility] 12-23-2024 09:22-0400 Body mass index (BMI) [Ratio] 32.56 kg/m2 Nino Butler MD Work Phone: [facility] 12-23-2024 09:22-0400 Body temperature 98.6 [degF] Nino Butler MD Work Phone: [facility] 12-23-2024 09:22-0400 Body weight 94.3 kg Nino Butler MD Work Phone: [facility] 12-23-2024 09:22-0400 Diastolic blood pressure 101 mm[Hg] Nino Butler MD Work Phone: [facility] 12-23-2024 09:22-0400 Heart rate 109 /min Nino Butler MD Work Phone: [facility] 12-23-2024 09:22-0400 SaO2% (BldA) [Mass fraction] 99 % Nino Butler MD Work Phone: [facility] 12-23-2024 09:22-0400 Systolic blood pressure 135 mm[Hg] Nino Butler MD Work Phone: [facility] 12-18-2024 12:00-0400 Diastolic blood pressure 88 mm[Hg] Anthony Tobin MD Work Phone: [facility] 12-18-2024 12:00-0400 Respiratory rate 100 /min Anthony Tobin MD Work Phone: [facility] 12-18-2024 12:00-0400 SaO2% (BldA) [Mass fraction] 100 % Anthony Tobin MD Work Phone: [facility] 12-18-2024 12:00-0400 Systolic blood pressure 135 mm[Hg] Anthony Tobin MD Work Phone: [facility] 12-18-2024 09:58-0400 Heart rate 110 /min Anthony Tobin MD Work Phone: [facility] 12-18-2024 07:21-0400 Body temperature 99 [degF] Anthony Tobin MD Work Phone: [facility] 09-28-2024 07:58-0500 Body temperature 98.49 [degF] Donavan Nieves DO Work Phone: [facility] 09-28-2024 07:58-0500 Diastolic blood pressure 100 mm[Hg] oDnavan Duncancki DO Work Phone: [facility] 09-28-2024 07:58-0500 Heart rate 106 /min Donavan Duncancki DO Work Phone: [facility] 09-28-2024 07:58-0500 Respiratory rate 14 /min Donavan Cabrerai DO Work Phone: [facility] 09-28-2024 07:58-0500 SaO2% (BldA) [Mass fraction] 95 % Donavan Cabrerai DO Work Phone: [facility] 09-28-2024 07:58-0500 Systolic blood pressure 142 mm[Hg] Donavan Cabrerai DO Work Phone: [facility] 09-27-2024 15:17-0500 Body mass index (BMI) [Ratio] 32.6 kg/m2 Donavan Cabrerai DO Work Phone: [facility] 09-27-2024 15:17-0500 Body weight 88.86 kg Donavan Cabrerai DO Work Phone: [facility] 09-19-2024 08:57-0500 Body height 165.1 cm Donavan Nieves DO Work Phone: [facility] 09-16-2024 16:58-0500 Body mass index (BMI) [Ratio] 33.45 kg/m2 Esteban Dinh MD Work Phone: [facility] 09-16-2024 16:58-0500 Body weight 91.17 kg Esteban Dinh MD Work Phone: [facility] 09-16-2024 14:13-0500 Body height 165.1 cm Esteban Dinh MD Work Phone: [facility] 09-16-2024 07:11-0500 Body temperature 97.2 [degF] Esteban Dinh MD Work Phone: [facility] 09-16-2024 07:11-0500 Diastolic blood pressure 105 mm[Hg] Esteban Dinh MD Work Phone: [facility] 09-16-2024 07:11-0500 Heart rate 99 /min Esteban Dinh MD Work Phone: [facility] 09-16-2024 07:11-0500 Respiratory rate 18 /min Esteban Dinh MD Work Phone: [facility] 09-16-2024 07:11-0500 SaO2% (BldA) [Mass fraction] 100 % Esteban Dinh MD Work Phone: [facility] 09-16-2024 07:11-0500 Systolic blood pressure 148 mm[Hg] Esteban Dinh MD Work Phone: [facility] 09-08-2024 17:12-0500 Diastolic Blood Pressure Non-Invasive 103 mm[Hg] DR CARLOS ALBERTO SMITH DO [facility] 09-08-2024 17:12-0500 Heart rate 102 /min DR CARLOS ALBERTO SMITH DO [facility] 09-08-2024 17:12-0500 Respiratory rate 18 /min DR CARLOS ALBERTO SMITH DO [facility] 09-08-2024 17:12-0500 Systolic Blood Pressure Non-Invasive 155 mm[Hg] DR CARLOS ALBERTO SMITH DO [facility] 09-08-2024 13:55-0500 Diastolic Blood Pressure Non-Invasive 109 mm[Hg] DR CARLOS ALBERTO SMITH DO [facility] 09-08-2024 13:55-0500 Heart rate 118 /min DR CARLOS ALBERTO SMITH DO [facility] 09-08-2024 13:55-0500 Respiratory rate 16 /min DR CARLOS ALBERTO SMITH DO [facility] 09-08-2024 13:55-0500 Systolic Blood Pressure Non-Invasive 150 mm[Hg] DR CARLOS ALBERTO SMITH DO [facility] 09-08-2024 12:55-0500 Body temperature 98.24 [degF] DR CARLOS ALBERTO SMITH DO [facility] 09-08-2024 12:55-0500 Diastolic Blood Pressure Non-Invasive 113 mm[Hg] DR CARLOS ALBERTO SMITH DO [facility] 09-08-2024 12:55-0500 Heart rate 129 /min DR CARLOS ALBERTO SIMTH DO [facility] 09-08-2024 12:55-0500 Respiratory rate 16 /min DR CARLOS ALBERTO SMITH DO [facility] 09-08-2024 12:55-0500 Systolic Blood Pressure Non-Invasive 160 mm[Hg] DR CARLOS ALBERTO SMITH DO [facility] 09-07-2024 20:40-0500 Diastolic Blood Pressure Non-Invasive 88 mm[Hg] ALEN POMPA DO [facility] 09-07-2024 20:40-0500 Heart rate 107 /min ALEN POMPA DO [facility] 09-07-2024 20:40-0500 Respiratory rate 20 /min ALEN POMPA DO [facility] 09-07-2024 20:40-0500 Systolic Blood Pressure Non-Invasive 140 mm[Hg] ALEN POMPA DO [facility] 09-07-2024 19:47-0500 Diastolic Blood Pressure Non-Invasive 94 mm[Hg] ALEN POMPA DO [facility] 09-07-2024 19:47-0500 Heart rate 114 /min ALEN POMPA DO [facility] 09-07-2024 19:47-0500 Respiratory rate 20 /min ALEN POMPA DO [facility] 09-07-2024 19:47-0500 Systolic Blood Pressure Non-Invasive 141 mm[Hg] ALEN POMPA DO [facility] 09-07-2024 17:59-0500 Diastolic Blood Pressure Non-Invasive 92 mm[Hg] ALEN POMPA DO [facility] 09-07-2024 17:59-0500 Heart rate 108 /min ALEN POMPA DO [facility] 09-07-2024 17:59-0500 Respiratory rate 20 /min ALEN POMPA DO [facility] 09-07-2024 17:59-0500 Systolic Blood Pressure Non-Invasive 148 mm[Hg] ALEN POMPA DO [facility] 09-07-2024 12:22-0500 Body temperature 97.34 [degF] ALEN POMPA DO [facility] 09-07-2024 12:22-0500 Body weight 91.4 kg ALEN POMPA DO [facility] 07-20-2024 15:06-0500 Body temperature 98.42 [degF] PREM BART DO [facility] 07-20-2024 15:06-0500 Diastolic Blood Pressure Non-Invasive 90 mm[Hg] PREM ARRIAGA DO [facility] 07-20-2024 15:06-0500 Heart rate 74 /min PREM ARRIAGA DO [facility] 07-20-2024 15:06-0500 Reason For Taking VItal Signs PREM ARRIAGA DO [facility] 07-20-2024 15:06-0500 Respiratory rate 18 /min PREM ARRIAGA DO [facility] 07-20-2024 15:06-0500 Systolic Blood Pressure Non-Invasive 158 mm[Hg] PREM ARRIAGA DO [facility] 07-20-2024 09:29-0500 Blood Pressure Cuff Size PREM ARRIAGA DO [facility] 07-20-2024 09:29-0500 Blood Pressure Location PREM ARRIAGA DO [facility] 07-20-2024 09:29-0500 Blood Pressure Method PREM ARRIAGA DO [facility] 07-20-2024 09:29-0500 Diastolic Blood Pressure Non-Invasive 84 mm[Hg] PREM ARRIAGA DO [facility] 07-20-2024 09:29-0500 Systolic Blood Pressure Non-Invasive 138 mm[Hg] PREM ARRIAGA DO [facility] 07-20-2024 07:46-0500 Body temperature 98.42 [degF] PREM ARRIAGA DO [facility] 07-20-2024 07:46-0500 Diastolic Blood Pressure Non-Invasive 111 mm[Hg] PREM ARRIAGA DO [facility] 07-20-2024 07:46-0500 Heart rate 74 /min PREM ARRIAGA DO [facility] 07-20-2024 07:46-0500 Respiratory rate 16 /min PREM ARRIAGA DO [facility] 07-20-2024 07:46-0500 Systolic Blood Pressure Non-Invasive 152 mm[Hg] PREM ARRIAGA DO [facility] 07-20-2024 07:42-0500 Body height 172.7 cm PREM SWENSONLY DO [facility] 07-20-2024 07:42-0500 Body weight 111.9 kg PREM ZURITAERLY DO [facility] 07-20-2024 07:42-0500 Body weight 37.52 kg/m2 PREM BART DO [facility] 07-20-2024 06:00-0500 Heart rate 76 /min PREM BART DO [facility] 07-20-2024 03:30-0500 Heart rate 80 /min PREM BART DO [facility] 07-20-2024 01:05-0500 Body temperature 98.24 [degF] PREM ZURITAEREDWARD GUEVARA [facility] 07-20-2024 01:05-0500 Heart rate 82 /min PREM ZURITAEREDWARD GUEVARA [facility] 07-19-2024 08:31-0500 Diastolic Blood Pressure Non-Invasive 78 mm[Hg] HARRIET THOMPSON MD [facility] 07-19-2024 08:31-0500 Heart rate 88 /min HARRIET THOMPSON MD [facility] 07-19-2024 08:31-0500 Respiratory rate 20 /min HARRIET THOMPSON MD [facility] 07-19-2024 08:31-0500 Systolic Blood Pressure Non-Invasive 127 mm[Hg] HARRIET THOMPSON MD [facility] 07-19-2024 06:56-0500 Blood Pressure Location HARRIET THOMPSON MD [facility] 07-19-2024 06:56-0500 Blood Pressure Method HARRIET THOMPSON MD [facility] 07-19-2024 06:56-0500 Diastolic Blood Pressure Non-Invasive 76 mm[Hg] HARRIET THOMPSON MD [facility] 07-19-2024 06:56-0500 Heart rate 88 /min HARRIET THOMPSON MD [facility] 07-19-2024 06:56-0500 Reason For Taking VItal Signs HARRIET THOMPSON MD [facility] 07-19-2024 06:56-0500 Respiratory rate 16 /min HARRIET THOMPSON MD [facility] 07-19-2024 06:56-0500 Systolic Blood Pressure Non-Invasive 127 mm[Hg] HARRIET THOMPSON MD [facility] 07-19-2024 05:43-0500 Blood Pressure Location HARRIET THOMPSON MD [facility] 07-19-2024 05:43-0500 Blood Pressure Method HARRIET THOMPSON MD [facility] 07-19-2024 05:43-0500 Body height 170.2 cm HARRIET THOMPSON MD [facility] 07-19-2024 05:43-0500 Body temperature 98.42 [degF] HARRIET THOMPSON MD [facility] 07-19-2024 05:43-0500 Body weight 111 kg HARRIET THOMPSON MD [facility] 07-19-2024 05:43-0500 Diastolic Blood Pressure Non-Invasive 101 mm[Hg] HARRIET THOMPSON MD [facility] 07-19-2024 05:43-0500 Heart rate 100 /min HARRIET THOMPSON MD [facility] 07-19-2024 05:43-0500 Respiratory rate 20 /min HARRIET THOMPSON MD [facility] 07-19-2024 05:43-0500 Systolic Blood Pressure Non-Invasive 149 mm[Hg] HARRIET THOMPSON MD [facility] 06-01-2023 14:56-0400 Diastolic blood pressure 88 mm[Hg] [facility] 06-01-2023 14:56-0400 Heart rate 79 /min [facility] 06-01-2023 14:56-0400 Respiratory rate 16 /min [facility] 06-01-2023 14:56-0400 SaO2% (BldA) [Mass fraction] 96 % [facility] 06-01-2023 14:56-0400 Systolic blood pressure 129 mm[Hg] [facility] 06-01-2023 10:32-0400 Body height 175.26 cm [facility] 06-01-2023 10:32-0400 Body temperature 98.4 [degF] [facility] 02-26-2023 17:20-0400 Diastolic Blood Pressure Non-Invasive [address] STANFORD RUANO MD [facility] 02-26-2023 17:20-0400 Heart rate 83 /min DR STANFORD RUANO MD [facility] 02-26-2023 17:20-0400 Respiratory rate 16 /min DR STANFORD RUANO MD [facility] 02-26-2023 17:20-0400 Systolic Blood Pressure Non-Invasive [address] STANFORD RUANO MD [facility] 02-26-2023 14:46-0400 Body temperature 99.32 [degF] DR STANFORD RUANO MD [facility] 02-26-2023 14:46-0400 Diastolic Blood Pressure Non-Invasive [address] STANFORD RUANO MD [facility] 02-26-2023 14:46-0400 Heart rate 106 /min DR STANFORD RUANO MD [facility] 02-26-2023 14:46-0400 Respiratory rate 16 /min DR STANFORD RUANO MD [facility] 02-26-2023 14:46-0400 Systolic Blood Pressure Non-Invasive [address] STANFORD RUANO MD [facility] 12-26-2022 11:15-0400 Body temperature 99.2 [degF] Dr. Moose Liu Work Phone: [facility] 12-26-2022 11:15-0400 Diastolic blood pressure 101 mm[Hg] Dr. Moose Liu Work Phone: [facility] 12-26-2022 11:15-0400 Heart rate 111 /min Dr. Moose Liu Work Phone: [facility] 12-26-2022 11:15-0400 Respiratory rate 18 /min Dr. Moose Liu Work Phone: [facility] 12-26-2022 11:15-0400 SaO2% (BldA) [Mass fraction] 99 % Dr. Moose Liu Work Phone: [facility] 12-26-2022 11:15-0400 Systolic blood pressure 145 mm[Hg] Dr. Moose Liu Work Phone: [facility] 12-24-2022 13:11-0400 Body height 175.[address] Moose Liu Work Phone: 7(919)934-307343 [place] [address] 12-24-2022 13:11-0400 Body weight 97.[address] Moose Liu Work Phone: 5(998)359-502590 [place] [address] 12-24-2022 13:01-0400 Body mass index (BMI) [Ratio] 31.6 kg/m2 Dr. Moose Liu Work Phone: 8(371)[phone] [place] [address] 12-22-2022 05:28-0400 Diastolic blood pressure 70 mm[Hg] Dr. Moose Liu Work Phone: 1(357)155-984490 [place] [address] 12-22-2022 05:28-0400 Heart rate 88 /min Dr. Moose Liu Work Phone: 4(691)513-772790 [place] [address] 12-22-2022 05:28-0400 Respiratory rate 18 /min Dr. Moose Liu Work Phone: 5(939)579-527890 [place] [address] 12-22-2022 05:28-0400 SaO2% (BldA) [Mass fraction] 98 % Dr. Moose Liu Work Phone: 9(315)308-409190 [place] [address] 12-22-2022 05:28-0400 Systolic blood pressure 116 mm[Hg] Dr. Moose Liu Work Phone: 6(734)351-701090 [place] [address] 12-22-2022 01:13-0400 Body height 175.[address] Moose Liu Work Phone: 8(107)473-682990 [place] [address] 12-22-2022 01:13-0400 Body mass index (BMI) [Ratio] 31.3 kg/m2 Dr. Moose Liu Work Phone: 3(779)598-433890 [place] [address] 12-22-2022 01:13-0400 Body temperature 97.9 [degF] Dr. Moose Liu Work Phone: 3(443)670-076790 [place] [address] 12-22-2022 01:13-0400 Body weight 96.[address] Moose Liu Work Phone: 7(858)723-642490 [place] [address] 12-15-2022 15:21-0400 Body temperature 98.7 [degF] Dr. Moose Liu Work Phone: [facility] 12-15-2022 15:21-0400 Diastolic blood pressure 90 mm[Hg] Dr. Moose Liu Work Phone: 7(823)174-240990 [place] [address] 12-15-2022 15:21-0400 Heart rate 101 /min Dr. Moose Liu Work Phone: 2(716)296-051643 [place] [address] 12-15-2022 15:21-0400 Respiratory rate 16 /min Dr. Moose Liu Work Phone: 0(187)195-741490 [place] [address] 12-15-2022 15:21-0400 SaO2% (BldA) [Mass fraction] 99 % Dr. Moose Liu Work Phone: 4(585)335-966790 [place] [address] 12-15-2022 15:21-0400 Systolic blood pressure 140 mm[Hg] Dr. Moose Liu Work Phone: 0(963)692-275090 [place] [address] 12-15-2022 05:48-0400 Body mass index (BMI) [Ratio] 31.6 kg/m2 Dr. Moose Liu Work Phone: 3(289)017-876090 [place] [address] 12-15-2022 05:48-0400 Body weight 97.[address] Moose Liu Work Phone: 4(048)913-941290 [place] [address] 12-14-2022 13:58-0400 Body height 175.[address] Moose Liu Work Phone: 3(756)960-303143 [place] [address] 12-13-2022 20:12-0400 Body temperature 98.9 [degF] Dr. Moose Liu Work Phone: 7(405)001-918443 [place] [address] 12-13-2022 20:12-0400 Diastolic blood pressure 89 mm[Hg] Dr. Moose Liu Work Phone: 0(497)571-694990 [place] [address] 12-13-2022 20:12-0400 Heart rate 82 /min Dr. Moose Liu Work Phone: 5(493)150-885043 [place] [address] 12-13-2022 20:12-0400 Respiratory rate 21 /min Dr. Moose Liu Work Phone: [facility] 12-13-2022 20:12-0400 SaO2% (BldA) [Mass fraction] 97 % Dr. Moose Liu Work Phone: [facility] 12-13-2022 20:12-0400 Systolic blood pressure 138 mm[Hg] Dr. Moose Liu Work Phone: [facility] 12-13-2022 10:42-0400 Body height 175.[address] Moose Liu Work Phone: [facility] 12-13-2022 10:42-0400 Body mass index (BMI) [Ratio] 31.6 kg/m2 Dr. Moose Liu Work Phone: [facility] 12-13-2022 10:42-0400 Body weight [address] Moose Liu Work Phone: [facility] 12-12-2022 11:03-0400 Body temperature 98.8 [degF] Dr. Moose Liu Work Phone: [facility] 12-12-2022 11:03-0400 Diastolic blood pressure 65 mm[Hg] Dr. Moose Liu Work Phone: [facility] 12-12-2022 11:03-0400 Heart rate 78 /min Dr. Moose Liu Work Phone: [facility] 12-12-2022 11:03-0400 Respiratory rate 18 /min Dr. Moose Liu Work Phone: [facility] 12-12-2022 11:03-0400 SaO2% (BldA) [Mass fraction] 100 % Dr. Moose Liu Work Phone: [facility] 12-12-2022 11:03-0400 Systolic blood pressure 108 mm[Hg] Dr. Moose Liu Work Phone: [facility] 12-11-2022 22:12-0400 Body height 175.[address] Moose Liu Work Phone: [facility] 12-11-2022 22:12-0400 Body mass index (BMI) [Ratio] 31.2 kg/m2 Dr. Moose Liu Work Phone: [facility] 12-11-2022 22:12-0400 Body weight 96.[address] Moose Liu Work Phone: 6(560)350-854343 [place] [address] 12-11-2022 21:13-0400 Body temperature 98.5 [degF] Dr. Moose Liu Work Phone: [facility] 12-11-2022 21:13-0400 Diastolic blood pressure 102 mm[Hg] Dr. Moose Liu Work Phone: 4(747)280-471543 [place] [address] 12-11-2022 21:13-0400 Heart rate 93 /min Dr. Moose Liu Work Phone: 1(938)406-234443 [place] [address] 12-11-2022 21:13-0400 Respiratory rate 18 /min Dr. Moose Liu Work Phone: [facility] 12-11-2022 21:13-0400 SaO2% (BldA) [Mass fraction] 98 % Dr. Moose Liu Work Phone: [facility] 12-11-2022 21:13-0400 Systolic blood pressure 142 mm[Hg] Dr. Moose Liu Work Phone: [facility] 12-11-2022 17:13-0400 Body mass index (BMI) [Ratio] 31.3 kg/m2 Dr. Moose Liu Work Phone: [facility] 12-11-2022 17:13-0400 Body weight 96.[address] Moose Liu Work Phone: [facility] 12-11-2022 16:59-0400 Body height 175.[address] Moose Liu Work Phone: [facility] 12-10-2022 01:13-0400 Heart rate 86 /min [facility] 12-10-2022 01:13-0400 Respiratory rate 15 /min [facility] 12-10-2022 01:13-0400 SaO2% (BldA) [Mass fraction] 99 % [facility] 12-10-2022 00:00-0400 Diastolic blood pressure 77 mm[Hg] [facility] 12-10-2022 00:00-0400 Systolic blood pressure 129 mm[Hg] [facility] 12-09-2022 19:22-0400 Body mass index (BMI) [Ratio] 31.5 kg/m2 [facility] 12-09-2022 19:22-0400 Body weight 96.9 kg [facility] 12-09-2022 18:34-0400 Body height 175.26 cm [facility] 12-09-2022 18:34-0400 Body temperature 97 [degF] [facility] 10-08-2022 19:09-0500 Body height 175.26 cm [facility] 10-08-2022 19:09-0500 Body mass index (BMI) [Ratio] 30.8 kg/m2 [facility] 10-08-2022 19:09-0500 Body temperature 97.4 [degF] [facility] 10-08-2022 19:09-0500 Body weight 94.8 kg [facility] 10-08-2022 19:09-0500 Diastolic blood pressure 101 mm[Hg] [facility] 10-08-2022 19:09-0500 Heart rate 98 /min [facility] 10-08-2022 19:09-0500 Respiratory rate 18 /min [facility] 10-08-2022 19:09-0500 SaO2% (BldA) [Mass fraction] 93 % [facility] 10-08-2022 19:09-0500 Systolic blood pressure 133 mm[Hg] [facility] 12-21-2021 22:23-0400 Body height 175.26 cm [facility] Work Phone: 12-21-2021 22:23-0400 Body mass index (BMI) [Ratio] 25.8 kg/m2 [facility] Work Phone: 12-21-2021 22:23-0400 Body temperature 97.7 [degF] [facility] Work Phone: 12-21-2021 22:23-0400 Body weight 79.37 kg [facility] Work Phone: 12-21-2021 22:23-0400 Diastolic blood pressure 88 mm[Hg] [facility] Work Phone: 12-21-2021 22:23-0400 Heart rate 96 /min [facility] Work Phone: 12-21-2021 22:23-0400 Respiratory rate 18 /min [facility] Work Phone: 12-21-2021 22:23-0400 SaO2% (BldA) [Mass fraction] 100 % [facility] Work Phone: 12-21-2021 22:23-0400 Systolic blood pressure 128 mm[Hg] [facility] Work Phone: 12-10-2021 19:11-0400 Respiratory rate 16 /min [facility] Work Phone: 12-10-2021 17:35-0400 Diastolic blood pressure 89 mm[Hg] [facility] Work Phone: 12-10-2021 17:35-0400 SaO2% (BldA) [Mass fraction] 96 % [facility] Work Phone: 12-10-2021 17:35-0400 Systolic blood pressure 124 mm[Hg] [facility] Work Phone: 12-10-2021 15:51-0400 Body height 175.26 cm [facility] Work Phone: 12-10-2021 15:51-0400 Body mass index (BMI) [Ratio] 25.8 kg/m2 [facility] Work Phone: 12-10-2021 15:51-0400 Body temperature 98.5 [degF] [facility] Work Phone: 12-10-2021 15:51-0400 Body weight 79.37 kg [facility] Work Phone: 12-10-2021 15:51-0400 Heart rate 110 /min [facility] Work Phone: 10-14-2021 01:07-0500 Diastolic blood pressure 88 mm[Hg] [facility] Work Phone: 10-14-2021 01:07-0500 Heart rate 88 /min [facility] Work Phone: 10-14-2021 01:07-0500 Respiratory rate 16 /min [facility] Work Phone: 10-14-2021 01:07-0500 SaO2% (BldA) [Mass fraction] 98 % [facility] Work Phone: 10-14-2021 01:07-0500 Systolic blood pressure 153 mm[Hg] [facility] Work Phone: 10-13-2021 22:49-0500 Body temperature 97.8 [degF] [facility] Work Phone: 10-13-2021 22:47-0500 Body height 175.26 cm [facility] Work Phone: 10-13-2021 22:47-0500 Body mass index (BMI) [Ratio] 25 kg/m2 [facility] Work Phone: 10-13-2021 22:47-0500 Body weight 76.7 kg [facility] Work Phone: 09-30-2021 04:00-0500 Diastolic blood pressure 99 mm[Hg] [facility] Work Phone: 09-30-2021 04:00-0500 Heart rate 128 /min [facility] Work Phone: 09-30-2021 04:00-0500 Respiratory rate 16 /min [facility] Work Phone: 09-30-2021 04:00-0500 SaO2% (BldA) [Mass fraction] 99 % [facility] Work Phone: 09-30-2021 04:00-0500 Systolic blood pressure 145 mm[Hg] [facility] Work Phone: 09-30-2021 03:05-0500 Body temperature 98.7 [degF] [facility] Work Phone: 09-29-2021 23:12-0500 Body mass index (BMI) [Ratio] 24.4 kg/m2 [facility] Work Phone: 09-29-2021 23:12-0500 Body weight 75 kg [facility] Work Phone: 09-19-2021 09:12-0500 Body temperature 98.49 [degF] Gela Ochoa MD Work Phone: [facility] 09-19-2021 09:12-0500 Diastolic blood pressure 72 mm[Hg] Gela Ochoa MD Work Phone: [facility] 09-19-2021 09:12-0500 Heart rate 75 /min Gela Ochoa MD Work Phone: [facility] 09-19-2021 09:12-0500 Respiratory rate 16 /min Gela Ochoa MD Work Phone: [facility] 09-19-2021 09:12-0500 SaO2% (BldA) [Mass fraction] 97 % Gela Ochoa MD Work Phone: [facility] 09-19-2021 09:12-0500 Systolic blood pressure 112 mm[Hg] Gela Ochoa MD Work Phone: [facility] 09-16-2021 11:05-0500 Body height 175.3 cm Gela Ochoa MD Work Phone: [facility] 09-14-2021 12:25-0500 Body mass index (BMI) [Ratio] 25.1 kg/m2 Gela Ochoa MD Work Phone: [facility] 09-14-2021 12:25-0500 Body weight 77.11 kg Gela Ochoa MD Work Phone: [facility] 09-14-2021 07:41-0500 Body temperature 98.42 [degF] DR CARLOS ALBERTO SMITH DO [facility] 09-14-2021 07:41-0500 Diastolic blood pressure 99 mm[Hg] DR CARLOS ALBERTO SMITH DO [facility] 09-14-2021 07:41-0500 Heart rate 100 /min DR CARLOS ALBERTO SMITH DO [facility] 09-14-2021 07:41-0500 Respiratory rate 16 /min DR CARLOS ALBERTO SMITH DO [facility] 09-14-2021 07:41-0500 Systolic blood pressure 145 mm[Hg] DR CARLOS ALBERTO SMITH DO [facility] 09-14-2021 04:45-0500 Diastolic blood pressure 89 mm[Hg] DR CARLOS ALBERTO SMITH DO [facility] 09-14-2021 04:45-0500 Heart rate 108 /min DR CARLOS ALBERTO SMITH DO [facility] 09-14-2021 04:45-0500 Reason For Taking VItal Signs DR CARLOS ALBERTO SMITH DO [facility] 09-14-2021 04:45-0500 Respiratory rate 16 /min DR CARLOS ALBERTO SMITH DO [facility] 09-14-2021 04:45-0500 Systolic blood pressure 128 mm[Hg] DR CARLOS ALBERTO SMITH DO [facility] 09-13-2021 21:03-0500 Body temperature 97.88 [degF] DR CARLOS ALBERTO SMITH DO [facility] 09-13-2021 21:03-0500 Diastolic blood pressure 90 mm[Hg] DR CARLOS ALBERTO SMITH DO [facility] 09-13-2021 21:03-0500 Heart rate 110 /min DR CARLOS ALBERTO SMITH DO [facility] 09-13-2021 21:03-0500 Respiratory rate 16 /min DR CARLOS ALBERTO SMITH DO [facility] 09-13-2021 21:03-0500 Systolic blood pressure 122 mm[Hg] DR CARLOS ALBERTO SMITH DO [facility] 09-13-2021 17:30-0500 Body temperature 98.78 [degF] DR CARLOS ALBERTO SMITH DO [facility] 09-12-2021 02:35-0500 Respiratory rate 16 /min [facility] Work Phone: 09-12-2021 00:02-0500 Body mass index (BMI) [Ratio] 25.4 kg/m2 [facility] Work Phone: 09-12-2021 00:02-0500 Body temperature 98.5 [degF] [facility] Work Phone: 09-12-2021 00:02-0500 Body weight 78.1 kg [facility] Work Phone: 09-12-2021 00:02-0500 Diastolic blood pressure 90 mm[Hg] [facility] Work Phone: 09-12-2021 00:02-0500 Heart rate 93 /min [facility] Work Phone: 09-12-2021 00:02-0500 SaO2% (BldA) [Mass fraction] 98 % [facility] Work Phone: 09-12-2021 00:02-0500 Systolic blood pressure 175 mm[Hg] [facility] Work Phone: 09-11-2021 08:30-0500 Body temperature 97.9 [degF] Heriberto Barahona MD Work Phone: [facility] 09-11-2021 08:30-0500 Diastolic blood pressure 95 mm[Hg] Herbierto Barahona MD Work Phone: [facility] 09-11-2021 08:30-0500 Heart rate 85 /min Heriberto Barahona MD Work Phone: [facility] 09-11-2021 08:30-0500 Respiratory rate 15 /min Heriberto Barahona MD Work Phone: [facility] 09-11-2021 08:30-0500 Systolic blood pressure 123 mm[Hg] Heriberto Barahona MD Work Phone: [facility] 09-10-2021 20:15-0500 SaO2% (BldA) [Mass fraction] 96 % Heriberto Barahona MD Work Phone: [facility] 09-09-2021 11:07-0500 Body height 175.3 cm Heriberto Barahona MD Work Phone: [facility] 09-09-2021 11:07-0500 Body mass index (BMI) [Ratio] 24.96 kg/m2 Heriberto Barahona MD Work Phone: [facility] 09-09-2021 11:07-0500 Body weight 76.66 kg Heriberto Barahona MD Work Phone: [facility] 09-08-2021 18:33-0500 Body mass index (BMI) [Ratio] 24.9 kg/m2 [facility] Work Phone: 09-08-2021 18:33-0500 Body temperature 96.9 [degF] [facility] Work Phone: 09-08-2021 18:33-0500 Body weight 76.65 kg [facility] Work Phone: 09-08-2021 18:33-0500 Diastolic blood pressure 104 mm[Hg] [facility] Work Phone: 09-08-2021 18:33-0500 Heart rate 122 /min [facility] Work Phone: 09-08-2021 18:33-0500 Respiratory rate 18 /min [facility] Work Phone: 09-08-2021 18:33-0500 SaO2% (BldA) [Mass fraction] 100 % [facility] Work Phone: 09-08-2021 18:33-0500 Systolic blood pressure 149 mm[Hg] [facility] Work Phone: 09-08-2021 09:01-0500 Diastolic blood pressure 116 mm[Hg] [facility] Work Phone: 09-08-2021 09:01-0500 Heart rate 120 /min [facility] Work Phone: 09-08-2021 09:01-0500 Respiratory rate 17 /min [facility] Work Phone: 09-08-2021 09:01-0500 SaO2% (BldA) [Mass fraction] 100 % [facility] Work Phone: 09-08-2021 09:01-0500 Systolic blood pressure 160 mm[Hg] [facility] Work Phone: 09-08-2021 04:46-0500 Body mass index (BMI) [Ratio] 24.5 kg/m2 [facility] Work Phone: 09-08-2021 04:46-0500 Body temperature 98.5 [degF] [facility] Work Phone: 09-08-2021 04:46-0500 Body weight 75.5 kg [facility] Work Phone: 09-07-2021 08:00-0500 Body temperature 98.1 [degF] Rachelle Monson MD Work Phone: [facility] 09-07-2021 08:00-0500 Diastolic blood pressure 102 mm[Hg] Rachelle Monson MD Work Phone: [facility] 09-07-2021 08:00-0500 Heart rate 88 /min Rachelle Monson MD Work Phone: [facility] 09-07-2021 08:00-0500 Respiratory rate 16 /min Rachelle Monson MD Work Phone: [facility] 09-07-2021 08:00-0500 SaO2% (BldA) [Mass fraction] 100 % Rachelle Monson MD Work Phone: [facility] 09-07-2021 08:00-0500 Systolic blood pressure 154 mm[Hg] Rachelle Monson MD Work Phone: [facility] 09-04-2021 04:46-0500 Body mass index (BMI) [Ratio] 25.09 kg/m2 Rachelle Monson MD Work Phone: [facility] 09-04-2021 04:46-0500 Body weight 77.07 kg Rachelle Monson MD Work Phone: [facility] 09-03-2021 21:22-0500 Body height 175.3 cm Rachelle Monson MD Work Phone: [facility] 09-03-2021 05:38-0500 Diastolic blood pressure 88 mm[Hg] Aba Coreas MD Work Phone: [facility] 09-03-2021 05:38-0500 Heart rate 96 /min Aba Coreas MD Work Phone: [facility] 09-03-2021 05:38-0500 Respiratory rate 18 /min Aba Coreas MD Work Phone: [facility] 09-03-2021 05:38-0500 SaO2% (BldA) [Mass fraction] 98 % Aba Coreas MD Work Phone: [facility] 09-03-2021 05:38-0500 Systolic blood pressure 140 mm[Hg] Aba Coreas MD Work Phone: [facility] 09-02-2021 22:00-0500 Body temperature 100.09 [degF] Aba Coreas MD Work Phone: [facility] 09-02-2021 22:00-0500 Body mass index (BMI) [Ratio] 25.89 kg/m2 Aba Coreas MD Work Phone: [facility] 09-02-2021 22:00-0500 Body weight 79.52 kg Aba Coreas MD Work Phone: [facility] 09-02-2021 15:01-0500 Body temperature 98.49 [degF] Heriberto Barahona MD Work Phone: [facility] 09-02-2021 15:01-0500 Diastolic blood pressure 93 mm[Hg] Heriberto Barahona MD Work Phone: [facility] 09-02-2021 15:01-0500 Heart rate 95 /min Heriberto Barahona MD Work Phone: [facility] 09-02-2021 15:01-0500 SaO2% (BldA) [Mass fraction] 100 % Heriberto Barahona MD Work Phone: [facility] 09-02-2021 15:01-0500 Systolic blood pressure 137 mm[Hg] Heriberto Barahona MD Work Phone: [facility] 09-02-2021 14:59-0500 Body height 175.3 cm Heriberto Barahona MD Work Phone: [facility] 09-02-2021 14:59-0500 Body mass index (BMI) [Ratio] 25.7 kg/m2 Heriberto Barahona MD Work Phone: [facility] 09-02-2021 14:59-0500 Body weight 78.93 kg Heriberto Barahona MD Work Phone: [facility] 08-24-2021 07:04-0500 SaO2% (BldA) [Mass fraction] 99 % [facility] Work Phone: 08-24-2021 05:18-0500 Diastolic blood pressure 86 mm[Hg] [facility] Work Phone: 08-24-2021 05:18-0500 Heart rate 91 /min [facility] Work Phone: 08-24-2021 05:18-0500 Respiratory rate 16 /min [facility] Work Phone: 08-24-2021 05:18-0500 Systolic blood pressure 141 mm[Hg] [facility] Work Phone: 08-24-2021 03:08-0500 Body temperature 99.8 [degF] [facility] Work Phone: 08-24-2021 01:58-0500 Body mass index (BMI) [Ratio] 25.5 kg/m2 [facility] Work Phone: 08-24-2021 01:58-0500 Body weight 78.6 kg [facility] Work Phone: 07-18-2021 09:26-0500 Diastolic blood pressure 99 mm[Hg] DR NELLIE DAILEY MD [facility] 07-18-2021 09:26-0500 Heart rate 99 /min DR NELLIE DAILEY MD [facility] 07-18-2021 09:26-0500 Mean blood pressure 115 mm[Hg] DR NELLIE DAILEY MD [facility] 07-18-2021 09:26-0500 Respiratory rate 16 /min DR NELLIE DAILEY MD [facility] 07-18-2021 09:26-0500 Systolic blood pressure 146 mm[Hg] DR NELLIE DAILEY MD [facility] 07-18-2021 08:38-0500 Body temperature 99.14 [degF] DR NELLIE DAILEY MD [facility] 07-18-2021 08:38-0500 Diastolic blood pressure 94 mm[Hg] DR NELLIE DAILEY MD [facility] 07-18-2021 08:38-0500 Heart rate 118 /min DR NELLIE DAILEY MD [facility] 07-18-2021 08:38-0500 Mean blood pressure 109 mm[Hg] DR NELLIE DAILEY MD [facility] 07-18-2021 08:38-0500 Respiratory rate 16 /min DR NELLIE DAILEY MD [facility] 07-18-2021 08:38-0500 Systolic blood pressure 140 mm[Hg] DR NELLIE DAILEY MD [facility] 03-10-2021 14:58-0400 Body temperature 98.4 [degF] Heriberto Rowley MD Work Phone: [facility] Work Phone: 03-10-2021 14:58-0400 Diastolic blood pressure 93 mm[Hg] Heriberto Rowley MD Work Phone: [facility] Work Phone: 03-10-2021 14:58-0400 Heart rate 123 /min Heriberto Rowley MD Work Phone: [facility] Work Phone: 03-10-2021 14:58-0400 Respiratory rate 18 /min [facility] Row[facility]: [facility] Work Phone: 03-10-2021 14:58-0400 SaO2% (BldA) [Mass fraction] 98 % Heriberto Rowley MD Work Phone: [facility] Work Phone: 03-10-2021 14:58-0400 Systolic blood pressure 144 mm[Hg] Heriberto Rowley MD Work Phone: [facility] Work Phone: 03-04-2021 09:43-0400 Body mass index (BMI) [Ratio] 28.46 kg/m2 Heriberto Rowley MD Work Phone: [facility] Work Phone: 03-04-2021 09:43-0400 Body weight 87.45 kg Heriberto Rowley MD Work Phone: [facility] Work Phone: 02-28-2021 09:49-0400 Body height 175.3 cm Heriberto Rowley MD Work Phone: [facility] Work Phone: 02-13-2021 11:00-0400 Body temperature 98.1 [degF] Cameron Lima MD Work Phone: [facility] Work Phone: 02-13-2021 11:00-0400 Diastolic blood pressure 83 mm[Hg] Cameron Lima MD Work Phone: [facility] Work Phone: 02-13-2021 11:00-0400 Heart rate 70 /min Cameron Lima MD Work Phone: [facility] Work Phone: 02-13-2021 11:00-0400 Respiratory rate 16 /min Cameron Lima MD Work Phone: [facility] Work Phone: 02-13-2021 11:00-0400 SaO2% (BldA) [Mass fraction] 98 % Cameron Lima MD Work Phone: [facility] Work Phone: 02-13-2021 11:00-0400 Systolic blood pressure 141 mm[Hg] Cameron Lima MD Work Phone: [facility] Work Phone: 02-12-2021 08:35-0400 Body height 175.3 cm Cameron Lima MD Work Phone: [facility] Work Phone: Comment on above: per chart 02-12-2021 00:29-0400 Body mass index (BMI) [Ratio] 30.95 kg/m2 Cameron Lima MD Work Phone: [facility] Work Phone: 02-12-2021 00:29-0400 Body weight 95.07 kg [facility] Work Phone: 01-25-2021 05:24-0400 Body temperature 99.3 [degF] RANCHO Carrillo MD [facility] Work Phone: 01-25-2021 05:24-0400 Diastolic blood pressure 76 mm[Hg] RANCHO Carrillo [facility] Work Phone: 01-25-2021 05:24-0400 Heart rate 70 /min RANCHO Carrillo MD Work Phone: [facility] Work Phone: 01-25-2021 05:24-0400 Respiratory rate 17 /min NA Gerardo MARTINEZ Work Phone: [facility] Work Phone: 01-25-2021 05:24-0400 SaO2% (BldA) [Mass fraction] 98 % NA Gerardo MARTINEZ Work Phone: [facility] Work Phone: 01-25-2021 05:24-0400 Systolic blood pressure 114 mm[Hg] NA Gerardo MARTINEZ Work Phone: [facility] Work Phone: 01-22-2021 12:16-0400 Body height 175.3 cm NA Gerardo MRATINEZ [facility]: [facility] Work Phone: 01-22-2021 12:15-0400 Body mass index (BMI) [Ratio] 28.8 kg/m2 NA Gerardo MARTINEZ Work Phone: [facility] Work Phone: 01-22-2021 12:15-0400 Body weight 88.45 kg NA Gerardo MARTINEZ Work Phone: [facility] Work Phone: 01-14-2021 13:08-0400 Body temperature 99.81 [degF] Madan Escobedo MD Work Phone: [facility] Work Phone: 01-14-2021 13:08-0400 Diastolic blood pressure 94 mm[Hg] Madan Escobedo MD [facility]: [facility] Work Phone: 01-14-2021 13:08-0400 Heart rate 107 /min Madan Escobedo MD Work Phone: [facility] Work Phone: 01-14-2021 13:08-0400 Respiratory rate 18 /min Madan sEcobedo MD Work Phone: [facility] Work Phone: 01-14-2021 13:08-0400 SaO2% (BldA) [Mass fraction] 96 % Madan Escobedo MD Work Phone: [facility] Work Phone: 01-14-2021 13:08-0400 Systolic blood pressure 143 mm[Hg] Madan Escobedo MD Work Phone: [facility] Work Phone: 01-13-2021 03:08-0400 Body height 175.3 cm Madan Escobedo MD Work Phone: [facility] Work Phone: 01-13-2021 03:08-0400 Body mass index (BMI) [Ratio] 29.09 kg/m2 Madan Escobedo MD Work Phone: [facility] Work Phone: 01-13-2021 03:08-0400 Body weight 89.36 kg Madan Escobedo MD Work Phone: [facility] Work Phone: 01-03-2021 07:28-0400 Body temperature 98.8 [degF] Madan Escobedo MD Work Phone: [facility] Work Phone: 01-03-2021 07:28-0400 Diastolic blood pressure 88 mm[Hg] Madan Escobedo MD Work Phone: [facility] Work Phone: 01-03-2021 07:28-0400 Heart rate 117 /min Madan Escobedo MD Work Phone: [facility] Work Phone: 01-03-2021 07:28-0400 Respiratory rate 17 /min Madan Escobedo MD Work Phone: [facility] Work Phone: 01-03-2021 07:28-0400 SaO2% (BldA) [Mass fraction] 98 % Madan Escobedo MD Work Phone: [facility] Work Phone: 01-03-2021 07:28-0400 Systolic blood pressure 141 mm[Hg] Madan Escobedo MD Work Phone: [facility] Work Phone: 01-02-2021 12:56-0400 Body height 175.3 cm Madan Escobedo MD [facility]: [facility] Work Phone: 12-30-2020 15:39-0400 Body mass index (BMI) [Ratio] 30.05 kg/m2 Madan Escobedo MD Work Phone: [facility] Work Phone: 12-30-2020 15:39-0400 Body weight 92.31 kg Madan Escobedo MD Work Phone: [facility] Work Phone: 12-28-2020 05:28-0400 Body temperature 98.29 [degF] Marlon Zimmer MD Work Phone: [facility] Work Phone: 12-28-2020 05:28-0400 Diastolic blood pressure 83 mm[Hg] Marlon Zimmer MD Work Phone: [facility] Work Phone: 12-28-2020 05:28-0400 Heart rate 92 /min Marlon Zimmer MD Work Phone: [facility] Work Phone: 12-28-2020 05:28-0400 Respiratory rate 18 /min Marlon Zimmer MD Work Phone: [facility] Work Phone: 12-28-2020 05:28-0400 SaO2% (BldA) [Mass fraction] 100 % Marlon Zimmer MD Work Phone: [facility] Work Phone: 12-28-2020 05:28-0400 Systolic blood pressure 138 mm[Hg] Marlon Zimmer MD Work Phone: [facility] Work Phone: 12-26-2020 17:02-0400 Body height 175.3 cm Marlon Zimmer MD Work Phone: [facility] Work Phone: 12-26-2020 17:02-0400 Body mass index (BMI) [Ratio] 30.57 kg/m2 Marlon Zimmer MD Work Phone: [facility] Work Phone: 12-26-2020 17:02-0400 Body weight 93.89 kg Marlon Zimmer MD Work Phone: [facility] Work Phone: 12-11-2020 13:49-0400 BMI (Body Mass Index) 30.63 kg/m2 Madan BARRETO Work Phone: 12-11-2020 13:49-0400 Body Temperature 98.2 [degF] Madan BARRETO Work Phone: 12-11-2020 13:49-0400 Body weight 94.08 kg Madan BARRETO Work Phone: 12-11-2020 13:49-0400 BP Diastolic 92 mm[Hg] Madan BARRETO Work Phone: 12-11-2020 13:49-0400 BP Systolic 150 mm[Hg] Madan BARRETO Work Phone: 12-11-2020 13:49-0400 Height 175.3 cm Madan BARRETO Work Phone: 12-11-2020 13:49-0400 Pulse (Heart Rate) 99 /min Madan BARRETO Work Phone: 12-11-2020 13:49-0400 Pulse Oximetry 99 % Madan BARRETO Work Phone: 12-11-2020 13:49-0400 Respiratory Rate 20 /min Madan BARRETO Work Phone: Encounters Encounter Date Encounter Type Care Provider Facility Start: 03-22-2025 End: 03-22-2025 Emergency department patient visit No Primary Care Physician Facility:[facility] Start: 03-22-2025 End: 03-22-2025 Orders Only Faisal Crowell MD Work Phone: Pain Management Comment on above: Chronic abdominal pa in (Primary Dx); Chronic pelvic pain in female Start: 03-17-2025 End: 03-18-2025 Evaluation and management of inpatient REG TOBIN Facility:[facility] Start: 03-16-2025 End: 03-16-2025 Emergency department patient visit Facility:[facility] Start: 03-16-2025 End: 03-16-2025 Emergency department patient visit DIEGO KAM MD [facility] Start: 03-15-2025 End: 03-15-2025 ambulatory [facility] Start: 03-15-2025 End: 03-15-2025 Evaluation and management of inpatient Heriberto Rowley MD Work Phone: [facility] Clinical Decision Unit CDU Comment on above: Abdominal pain, gene ralized (Primary Dx); Nausea; Hypokalemia Start: 03-12-2025 End: 03-12-2025 Emergency department patient visit MARYANA SALDIVAR DO [facility] Start: 03-11-2025 End: 03-11-2025 Emergency department patient visit ALEN POMPA DO [facility] Start: 03-10-2025 End: 03-10-2025 Emergency department patient visit MARYANA SALDIVAR DO [facility] Start: 03-09-2025 End: 03-09-2025 Emergency department patient visit ALFONSO DAILEY MD [facility] Start: 03-02-2025 End: 03-02-2025 ambulatory Fermín Ortiz MD Work Phone: Pain Management Comment on above: Pre-Procedure Instru ctions and Arrival Time Start: 03-02-2025 End: 03-02-2025 E-mail encounter from caregiver Fermín Ortiz MD Work Phone: Pain Management Start: 02-15-2025 End: 02-15-2025 Patient encounter procedure Fermín Ortiz MD Work Phone: Pain Management Comment on above: Chronic abdominal pa in (Primary Dx); Chronic pelvic pain in female Start: 02-15-2025 End: 02-15-2025 ambulatory FERMÍN ORTIZ Facility:[facility] Start: 01-12-2025 End: 03-14-2025 Follow-up encounter Nino Butler MD Work Phone: Gastroenterology Start: 01-02-2025 ambulatory NINO BUTLER Facility :[facility] Start: 01-02-2025 End: 01-02-2025 Subsequent hospital visit by physician Xavier Mark MD Work Phone: [facility] Endoscopy - ENDO Comment on above: Periumbilical abdomi nal pain [R10.33] Start: 12-27-2024 End: 12-27-2024 Emergency department patient visit ALEN POMPA DO [facility] Start: 12-23-2024 End: 12-23-2024 ambulatory Xavier Makr MD Work Phone: [facility] Endoscopy - ENDO Start: 12-23-2024 End: 12-23-2024 Patient encounter procedure Nino Butler MD Work Phone: Gastroenterology Comment on above: Periumbilical abdomi nal pain (Primary Dx) Start: 12-18-2024 End: 12-18-2024 Emergency department patient visit Anthony Tobin MD Work Phone: [facility] EMERGENCY DEPT Comment on above: Abdominal pain, gene ralized (Primary Dx) Start: 12-14-2024 End: 12-14-2024 Emergency department patient visit Robina Shirley Facility:[facility] Start: 12-08-2024 ambulatory No Primary Car e Physician Facility:[facility] Start: 12-05-2024 End: 12-10-2024 ambulatory EDY PACHECO Facility:[facility] Start: 12-04-2024 End: 12-04-2024 Emergency department patient visit GOPAL QUIÑONES Facility:[facility] Start: 11-30-2024 End: 11-30-2024 ambulatory No Primary Care Physician Facility:[facility] Start: 11-30-2024 End: 11-30-[address] [facility] Facility:[facility] Start: 11-04-2024 End: 11-04-2024 Telephone encounter Prem Dominguez MD Work Phone: Pain Management Comment on above: Appointment Start: 10-06-2024 End: 10-16-2024 Evaluation and management of inpatient SHANTE SOUTH Facility:[facility] Start: 10-03-2024 End: 10-05-2024 ambulatory KASEY MARTINEZ [facility] Start: 09-29-2024 End: 09-30-2024 ambulatory ERIC SIMPSON Facility:[facility] Start: 09-17-2024 End: 09-28-2024 Evaluation and management of inpatient Donavan Isaura Nieves DO Work Phone: [facility] Medical Unit 4N Comment on above: Hypokalemia (Primary Dx); Intractable abdominal pain; Nausea and vomiting, unspecified vomiting type Start: 09-17-2024 End: 09-17-2024 Emergency department patient visit No Primary Care Physician Facility:[facility] Start: 09-15-2024 End: 09-16-2024 ambulatory [facility] Start: 09-15-2024 End: 09-16-2024 Emergency department patient visit Esteban Dinh MD Work Phone: [facility] Clinical Decision Unit CDU Comment on above: Intractable abdomina l pain (Primary Dx); Intractable nausea and vomiting Start: 09-13-2024 End: 09-14-2024 Emergency department patient visit Xavier Patterson Facility:[facility] Start: 09-11-2024 End: 09-11-2024 Emergency department patient visit Patti Santos Facility:[facility] Start: 09-09-2024 End: 09-09-2024 Emergency department patient visit RACHELLE MONSON [facility] Start: 09-09-2024 ambulatory Corine Friend Facility :[facility] Start: 09-08-2024 End: 09-08-2024 Emergency department patient visit DR CARLOS ALBERTO SMITH DO [facility] Start: 09-07-2024 End: 09-07-2024 Emergency department patient visit ALEN POMPA DO [facility] Start: 09-05-2024 End: 09-05-2024 Evaluation and management of inpatient GELA WEINSTEIN Facility:[facility] Start: 09-01-2024 End: 09-01-2024 Evaluation and management of inpatient QUEENIE KASSAY Facility:[facility] Start: 08-18-2024 End: 08-18-2024 Evaluation and management of inpatient CORINE B FRIEND Facility:[facility] Start: 08-16-2024 End: 08-16-2024 Evaluation and management of inpatient CORINE B FRIEND Facility:[facility] Start: 08-14-2024 Evaluation and management of inpatient CORINE B FRIEND Facility:[facility] Start: 08-01-2024 End: 08-01-2024 ambulatory ALBERTO N BASHOUR Facility:[facility] Start: 07-29-2024 End: 08-14-2024 Evaluation and management of inpatient THI EDWARDS EMILEE Facility:[facility] Start: 07-26-2024 End: 07-26-2024 Emergency department patient visit NONE PHYSICIAN Facility:A Start: 07-23-2024 End: 07-25-2024 ambulatory Cameron Dawkins Facility:[facility] Start: 07-22-2024 End: 07-22-2024 ambulatory Corine Friend Facility:[facility] Start: 07-20-2024 End: 07-20-2024 Emergency department patient visit [facility] Facility:[facility] Start: 07-20-2024 End: 07-20-2024 Emergency department patient visit OLEG PHYSICIAN Facility:[facility] Start: 07-20-2024 End: 07-20-2024 Observation PREM ARRIAGA DO [facility] Start: 07-19-2024 End: 07-19-2024 Emergency department patient visit HARRIET THOMPSON MD [facility] Start: 07-18-2024 End: 07-18-2024 Emergency department patient visit [facility] Facility:[facility] Start: 07-17-2024 End: 07-17-2024 Emergency department patient visit Rei Tatum Facility:[facility] Start: 06-01-2023 End: 06-01-2023 Emergency department patient visit [facility]Emergency Department Work Phone: Start: 02-26-2023 End: 02-26-2023 Emergency department patient visit DR STANFORD RUANO MD Facility:[facility] Start: 02-26-2023 End: 02-26-2023 Emergency department patient visit DR STANFORD RUANO MD [facility] Start: 12-26-2022 Non-patient / Non-visit Dr. Moose Liu Work Phone: [facility] Inpatient Physicians Start: 12-25-2022 Non-patient / Non-visit Dr. Moose Liu Work Phone: [facility] Start: 12-25-2022 Non-patient / Non-visit Dr. Moose Liu Work Phone: [facility] Inpatient Physicians Start: 12-24-2022 Non-patient / Non-visit Dr. Moose Liu Work Phone: [facility] Start: 12-24-2022 End: 12-26-2022 Evaluation and management of inpatient Dr. Moose Liu Work Phone: [facility] 3 Start: 12-24-2022 Non-patient / Non-visit Dr. Moose Liu Work Phone: [facility] Inpatient Physicians Start: 12-23-2022 Non-patient / Non-visit Dr. Moose Liu Work Phone: [facility] Start: 12-22-2022 End: 12-22-2022 Emergency department patient visit Dr[facility] Moose Liu [facility] Start: 12-15-2022 Non-patient / Non-visit Dr. Moose Liu Work Phone: [facility] Start: 12-14-2022 Non-patient / Non-visit Dr. Moose Liu Work Phone: [facility] Inpatient Physicians Start: 12-13-2022 End: 12-15-2022 Evaluation and management of inpatient Dr. Moose Liu Work Phone: [facility] Start: 12-12-2022 Non-patient / Non-visit Dr. Moose Liu Work Phone: [facility]patient Physicians Start: 12-11-2022 Non-patient / Non-visit Dr. Moose Liu Work Phone: [facility]patient [facility] Start: 12-11-2022 End: 12-12-2022 Evaluation and management of inpatient Dr. Moose Liu Work Phone: [facility] Start: 12-11-2022 End: 12-12-[address] oMose Liu Work Phone: [facility] Work Phone: Start: 12-09-2022 End: 12-10-2022 Emergency department patient visit [facility] Start: 10-08-2022 End: 10-08-2022 Emergency department patient visit [facility]Emergency Department Start: 12-21-2021 End: 12-22-2021 [facility] Start: 12-10-2021 End: 12-10-2021 Emergency department patient visit [facility]Emergency Department Start: 10-14-2021 End: 10-14-2021 Patient encounter procedure [facility]-Laboratory, Specimen Start: 10-13-2021 End: 10-14-2021 Emergency department patient visit [facility]Emergency Department Start: 10-02-2021 End: 10-02-2021 Subsequent hospital visit by physician Bess Acuna MD Work Phone: [facility] LAB USE ONLY Comment on above: Urethral bleeding Start: 09-30-2021 End: 09-30-2021 [facility] Start: 09-14-2021 End: 09-19-2021 Evaluation and management of inpatient Gela Ochoa MD Work Phone: [facility] MED SURG Start: 09-13-2021 End: 09-14-2021 Emergency department patient visit DR CARLOS ALBERTO SMITH DO [facility] Start: 09-12-2021 End: 09-12-2021 Emergency department patient visit [facility]Emergency Department Start: 09-09-2021 End: 09-11-2021 Evaluation and management of inpatient Heriberto Barahona MD Work Phone: [facility] General Surgery Comment on above: Ureteral stricture, left (Primary Dx) Start: 09-08-2021 End: 09-08-2021 Emergency department patient visit [facility]Emergency Department Start: 09-08-2021 End: 09-08-2021 Emergency department patient visit [facility]Emergency Department Start: 09-03-2021 End: 09-07-2021 Evaluation and management of inpatient Rachelle Monson MD Work Phone: [facility] Oncology Comment on above: Intractable vomiting with nausea, unspecified vomiting type (Primary Dx); Acute cystitis without hematuria; Generalized abdominal pain Start: 09-02-2021 End: 09-03-2021 Emergency department patient visit Aba Coreas MD Work Phone: [facility] Emergency Dept Comment on above: Non-intractable vomi ting with nausea, unspecified vomiting type (Primary Dx); Urinary tract infection with hematuria, site unspecified Start: 09-02-2021 End: 09-02-2021 Patient encounter status Heriberto Barahona MD Work Phone: [facility] Pre-Admit Testing Start: 09-02-2021 End: 09-02-2021 Subsequent hospital visit by physician Heriberto Barahona MD Work Phone: [facility] Pre-Admit Testing Comment on above: Pre-op testing (Prim dixie Dx) Start: 08-24-2021 End: 08-24-2021 [facility] Start: 07-18-2021 End: 07-18-2021 Emergency department patient visit DR NELLIE DAILEY MD [facility] Start: 03-26-2021 End: 04-25-2021 Patient encounter status Heriberto Barahona MD Work Phone: [facility] Start: 03-22-2021 End: 03-22-2021 Subsequent hospital visit by physician Michoacano Mcintosh MD Work Phone: [facility] LAB USE ONLY Start: 03-14-2021 End: 03-14-2021 Subsequent hospital visit by physician Rachael Suggs MD Work Phone: [facility] LAB USE ONLY Start: 02-23-2021 End: 03-10-2021 Evaluation and management of inpatient Heriberto Rowley MD Work Phone: [facility] MED SURG Start: 02-11-2021 End: 02-13-2021 Emergency department patient visit Cameron Lima MD Work Phone: [facility] CDU Comment on above: Ureteric stone (Prim dixie Dx); Urinary tract infection with hematuria, site unspecified; Urinary retention; Hydronephrosis concurrent with and due to ureteral stricture Start: 01-21-2021 End: 01-25-2021 Evaluation and management of inpatient M Shahram Carrillo MD Work Phone: [facility] 5N OVERFLOW Start: 01-13-2021 End: 01-14-2021 Evaluation and management of inpatient Madan Escobedo MD Work Phone: [facility] H5 MED SURG Start: 12-30-2020 End: 01-03-2021 Evaluation and management of inpatient Madan Escobedo MD Work Phone: [facility] 7E Oncology Start: 12-21-2020 End: 12-28-2020 Evaluation and management of inpatient Marlon Zimmer MD Work Phone: [facility] H6 TELEMETRY Comment on above: Post-op pain Start: 12-11-2020 End: 12-11-2020 Subsequent hospital visit by physician Madan Escobedo Work Phone: [facility] Pre-Admit Testing Comment on above: Arrived Procedures Date Procedure Procedure Detail Performing Clinician Start: 03-15-2025 Radiologic exam abdomen 1 view Chin martinez TRAFFIC MANAGER - DRIP MOLDER Work Phone: Start: 03-15-2025 Ecg routine ecg w/least 12 lds trcg only w/o i&r Heriberto Rowley MD Work Phone: Start: 03-15-2025 Blood count complete auto&auto difrntl wbc Heriberto Rowley MD Work Phone: Start: 03-15-2025 Manual Differential panel - Blood Heriberto Rowley MD Work Phone: Start: 03-15-2025 Basic metabolic panel calcium total Heriberto Rowley MD Work Phone: Start: 01-02-2025 Esophagoscp rig transoral hypopharynx crv janelle Butler MD Work Phone: Start: 12-18-2024 Urinalysis complete panel - Urine Ernie Arana DO Work Phone: Start: 12-18-2024 Urnls dip stick/tablet reagent auto microscopy Ernei Arana DO Work Phone: Start: 12-18-2024 Comprehensive metabolic panel Ernie forbes DO Work Phone: Start: 10-03-2024 Urinalysis KASEY MURDOCKDEBORA Comment on above: Result Comment: URINALYSIS Performed By: #### [id number] #### [facility],[address] [place] [address] Start: 09-28-2024 Blood count complete auto&auto difrntl wbc Ebenezer Gongora MD Work Phone: Start: 09-28-2024 Basic metabolic panel calcium total Ebenezer Gongora MD Work Phone: Start: 09-27-2024 Radiologic exam abdomen 1 view Eduardo smith MD Work Phone: Start: 09-27-2024 Basic metabolic panel calcium total Ebenezer Gongora MD Work Phone: Start: 09-26-2024 Comprehensive metabolic panel Richard Adames MD Work Phone: Start: 09-26-2024 Manual Differential panel - Blood Ebenezer Gongora MD Work Phone: Start: 09-25-2024 Blood count complete auto&auto difrntl wbc Chika Adames MD Work Phone: Start: 09-24-2024 Comprehensive metabolic panel Richard Adames MD Work Phone: Start: 09-23-2024 Comprehensive metabolic panel Richard Adames MD Work Phone: Start: 09-22-2024 Comprehensive metabolic panel Richard Adames MD Work Phone: Start: 09-21-2024 Comprehensive metabolic panel Richard Adames MD Work Phone: Start: 09-20-2024 Comprehensive metabolic panel Richard Adames MD Work Phone: Start: 09-19-2024 Comprehensive metabolic panel Richard Adames MD Work Phone: Start: 09-18-2024 Comprehensive metabolic panel Donavan Nieves DO Work Phone: Start: 09-17-2024 Ecg routine ecg w/least 12 lds trcg only w/o i&r Hiwot Reaves PA-C Work Phone: Start: 09-17-2024 Comprehensive metabolic panel Heriberto mensah MD Work Phone: Start: 09-17-2024 Urinalysis complete panel - Urine Heriberto Rowley MD Work Phone: Start: 09-17-2024 Urine test visual color cmprsn meths Heriberto Rowley MD Work Phone: Start: 09-17-2024 Urnls dip stick/tablet reagent auto microscopy Heriberto Rowley MD Work Phone: Start: 09-16-2024 Comprehensive metabolic panel Meagan Lubin TRAFFIC MANAGER - DRIP MOLDER Work Phone: Start: 09-15-2024 Drug tst prsmv instrmnt chem analyzers pr date Meagan Lubin TRAFFIC MANAGER - DRIP MOLDER Work Phone: Start: 09-15-2024 THC SCREEN Esau Dave TRAFFIC MANAGER - DRIP MOLDER Work Phone: Start: 09-15-2024 Ct abdomen & pelvis w/contrast material Rafael Winchester TRAFFIC MANAGER - DRIP MOLDER Work Phone: Start: 09-15-2024 Urinalysis complete panel - Urine Rafael Winchester TRAFFIC MANAGER - DRIP MOLDER Work Phone: Start: 09-15-2024 Urnls dip stick/tablet reagent auto microscopy Rafael Winchester TRAFFIC MANAGER - DRIP MOLDER Work Phone: Start: 09-15-2024 End: 09-15-2024 Comprehensive metabolic panel Rafael solomon TRAFFIC MANAGER - DRIP MOLDER Work Phone: Start: 08-14-2024 History of cholecystectomy Hx laparoscopic cholecystectomy Prem Dominguez MD Work Phone: Start: 08-08-2024 Antibody screen ALBERTO BASSILVINAR Comment on above: Order Comment: Specimen Type: BLOOD SPEC IMENOrdering Facility: [facility] Address: [address] [place] [address] [place] [address] Performed By: #### T SCR ####DONNA BLOOD BANKCLIA [id number] [place] [address] [place] [facility] Start: 07-31-2024 Electrocardiogram LABERTO BASHOUR Start: 07-30-2024 Electrocardiogram ALBERTO BASHOUR Start: 06-01-2023 Computed tomography of abdomen and pelvis with intravenous contrast Start: 12-24-2022 Radionuclide gastric emptying study Dr. Moose Liu Work Phone: Start: 12-24-[address] Moose Liu Work Phone: Start: 12-23-[address] Moose Liu Work Phone: Start: 12-22-2022 Computed tomography of abdomen and pelvis with intravenous contrast Dr. Moose Liu Work Phone: Start: 12-13-2022 Plain X-ray abdomen Dr. Moose Liu Work Phone: Start: 12-11-2022 Computed tomography of abdomen and pelvis with intravenous contrast Dr. Moose Liu Work Phone: Start: 12-09-2022 Computed tomography of abdomen and pelvis with intravenous contrast Start: 12-21-2021 CT of head without contrast Start: 12-10-2021 CT of abdomen and pelvis without contrast Start: 12-10-2021 Urine culture Start: 10-07-2021 End: 10-07-2021 Microscopic examination of blood, culture Comment on above: Performed By: #### C/BLT ####Shelly [facility] [address] [place] [address] [place], [place] [id number] Performed By: #### C /BLD ####[facility] [place] [address] Start: 10-02-2021 Comprehensive metabolic panel Leah Strickland MD Work Phone: Start: 09-30-2021 Urine culture Start: 09-30-2021 CT of abdomen and pelvis without contrast Start: 09-19-2021 Basic metabolic panel calcium total Detnon Brown MD Work Phone: Start: 09-18-2021 Radiologic exam abdomen 1 view Denton Brown MD Work Phone: Start: 09-18-2021 Basic metabolic panel calcium total Denton Brown MD Work Phone: Start: 09-17-2021 Basic metabolic panel calcium total Denton Brown MD Work Phone: Start: 09-16-2021 Basic metabolic panel calcium total Denton Brown MD Work Phone: Start: 09-15-2021 Ct pelvis w/o & w/contrast material Gela Ochao MD Work Phone: Start: 09-14-2021 Assay of magnesium Gela Ochoa MD Work Phone: Start: 09-14-2021 BASIC METABOLIC PANEL W/ REFLEX TO MG FOR LOW K Alen Savage MD Work Phone: Start: 09-14-2021 Culture bacterial quanttative colony count urine Alen Savage MD Work Phone: Start: 09-14-2021 Urnls dip stick/tablet rgnt auto w/o microscopy Alen Savage MD Work Phone: Start: 09-14-2021 Radiologic exam abdomen 1 view Alen martinez MD Work Phone: Start: 09-12-2021 CT of abdomen and pelvis without contrast Start: 09-11-2021 Creatinine blood Denton Brown MD Work Phone: Start: 09-11-2021 Assay of magnesium Nellie Wen MD Work Phone: Start: 09-11-2021 BASIC METABOLIC PANEL W/ REFLEX TO MG FOR LOW K Nellie eWn MD Work Phone: Start: 09-10-2021 BASIC METABOLIC PANEL W/ REFLEX TO MG FOR LOW K Nellie Wen MD Work Phone: Start: 09-10-2021 Blood count complete automated Nellie correia MD Work Phone: Start: 09-09-2021 OPERATIVE REPORT 3m Scanning Start: 09-09-2021 Radiologic exam abdomen 1 view Nellie correia MD Work Phone: Start: 09-09-2021 KATINA STUDIO 3 Heriberto Barahona MD Work Phone: Start: 09-07-2021 Basic metabolic panel calcium total Selwyn Kepko DO Work Phone: Start: 09-06-2021 Ecg routine ecg w/least 12 lds w/i&r Aryan Jama MD Work Phone: Start: 09-06-2021 Basic metabolic panel calcium total Selwyn Kepko DO Work Phone: Start: 09-05-2021 Ecg routine ecg w/least 12 lds w/i&r Chance Martinez MD Work Phone: Start: 09-05-2021 Ct abdomen & pelvis w/o contrast material Chance Martinez MD Work Phone: Start: 09-05-2021 Basic metabolic panel calcium total Selwyn Kepko DO Work Phone: Start: 09-04-2021 Culture bacterial quanttative colony count urine Selwyn Kepko DO Work Phone: Start: 09-04-2021 Urnls dip stick/tablet rgnt auto w/o microscopy Selwyn Kepko DO Work Phone: Start: 09-04-2021 Basic metabolic panel calcium total Selwyn Kepko DO Work Phone: Start: 09-04-2021 ADD ON LAB TEST Selwyn Kepko DO Work Phone: Start: 09-04-2021 Radiologic exam abdomen 1 view Selwyn K epko DO Work Phone: Start: 09-04-2021 Comprehensive metabolic panel Ziyad Epstein PA Work Phone: Start: 09-03-2021 Ecg routine ecg w/least 12 lds w/i&r Ziyad Smith PA Work Phone: Start: 09-03-2021 ADD ON LAB TEST Aba Coreas MD Work Phone: Start: 09-03-2021 Urnls dip stick/tablet rgnt auto w/o microscopy Esau Cain PA-C Work Phone: Start: 09-02-2021 Us retroperitoneal real time w/image limited Esauorlando Lozadak PA-C Work Phone: Start: 09-02-2021 Comprehensive metabolic panel Esauorlando Cain PA-C Work Phone: Start: 09-02-2021 Basic metabolic panel calcium total Hiwot [place] TRAFFIC MANAGER - MEDICAL LAB SPECIALIST Work Phone: Start: 08-24-2021 CT of abdomen and pelvis without contrast Start: 03-14-2021 Basic metabolic panel calcium total Hali Henry MD Work Phone: Start: 03-10-2021 Comprehensive metabolic panel Hali Henry MD Work Phone: Start: 03-09-2021 Comprehensive metabolic panel Hali Henry MD Work Phone: Start: 03-08-2021 Special diagnostic procedures Daniel hoang MD Work Phone: Start: 03-08-2021 Comprehensive metabolic panel Hali Henry MD Work Phone: Start: 03-07-2021 Gluc bld gluc mntr dev cleared fda spec home use Rachaelirene Butler DO Work Phone: Start: 03-07-2021 Gluc bld gluc mntr dev cleared fda spec home use Rcahaelirene Butler DO Work Phone: Start: 03-07-2021 Basic metabolic panel calcium total Levelock Khalid DO Work Phone: Start: 03-07-2021 Hepatic function panel Go Mian MD Work Phone: Start: 03-06-2021 Gluc bld gluc mntr dev cleared fda spec home use Rachael D Zaugg DO Work Phone: Start: 03-06-2021 Basic metabolic panel calcium total Rachael D Zaugg DO Work Phone: Start: 03-06-2021 Calcium ionized Levelock Khalid DO Work Phone: Start: 03-06-2021 Gluc bld gluc mntr dev cleared fda spec home use Rachael D Zaugg DO Work Phone: Start: 03-06-2021 End: 03-06-2021 Gluc bld gluc mntr dev cleared fda spec home use Rachael D Zaugg DO Work Phone: Start: 03-06-2021 Basic metabolic panel calcium total Levelock Khalid DO Work Phone: Start: 03-06-2021 Hepatic function panel Go Main MD Work Phone: Start: 03-05-2021 Gluc bld gluc mntr dev cleared fda spec home use Heriberto Rowley MD Work Phone: Start: 03-05-2021 Basic metabolic panel calcium total Levelock Khalid DO Work Phone: Start: 03-05-2021 Ecg routine ecg w/least 12 lds w/i&r Levelock Khalid DO Work Phone: Start: 03-05-2021 Gluc bld gluc mntr dev cleared fda spec home use Rachael D Zaugg DO Work Phone: Start: 03-05-2021 End: 03-05-2021 Basic metabolic panel calcium total Go Main MD Work Phone: Start: 03-05-2021 Hepatic function panel Go Main MD Work Phone: Start: 03-04-2021 Mri brain brain stem w/o w/contrast material Parishapollo Sanchez DO Work Phone: Start: 03-04-2021 Radiologic exam chest single view Pooja Clarke MD Work Phone: Start: 03-04-2021 Basic metabolic panel calcium total Go Main MD Work Phone: Start: 03-04-2021 Hepatic function panel Go Main MD Work Phone: Start: 03-03-2021 Ct thorax w/contrast material David Long MD Work Phone: Start: 03-03-2021 Ecg routine ecg w/least 12 lds w/i&r Parish Sanchez DO Work Phone: Start: 03-03-2021 Basic metabolic panel calcium total Go Main MD Work Phone: Start: 03-03-2021 Hepatic function panel Go Main MD Work Phone: Start: 03-02-2021 Basic metabolic panel calcium total Go Main MD Work Phone: Start: 03-02-2021 Hepatic function panel Go Main MD Work Phone: Start: 03-01-2021 End: 03-01-2021 Basic metabolic panel calcium total Go Main MD Work Phone: Start: 03-01-2021 Hepatic function panel Go Main MD Work Phone: Start: 02-28-2021 HM ENDOSCOPY REPORT 3m Scanning Start: 02-28-2021 Level iv surg pathology gross&microscopic exam Sierra Alvarado MD Work Phone: Start: 02-28-2021 Basic metabolic panel calcium total Go Main MD Work Phone: Start: 02-28-2021 Hepatic function panel Go Main MD Work Phone: Start: 02-27-2021 Immunoassay analyte qual/semiqual multiple step Heriberto Rowley MD Work Phone: Start: 02-27-2021 End: 02-27-2021 ADD ON LAB TEST Madan Greenwood DO Work Phone: Start: 02-27-2021 Ecg routine ecg w/least 12 lds w/i&r Aba Godinez MD Work Phone: Start: 02-27-2021 Chloride urine Aletha Lozada MD Work Phone: Start: 02-27-2021 ADD ON LAB TEST Aletha Lozada MD Work Phone: Start: 02-27-2021 Basic metabolic panel calcium total Go Main MD Work Phone: Start: 02-27-2021 Hepatic function panel Go Main MD Work Phone: Start: 02-27-2021 Ecg routine ecg w/least 12 lds w/i&r Chip Kusar DO Work Phone: Start: 02-26-2021 CANNABINOID, URINE, SCREENING, CRITICAL CARE Sherrill Rivero TRAFFIC MANAGER - DRIP MOLDER Work Phone: Start: 02-26-2021 Radiologic exam colon single contrast study Aniyah Claros PA-C Work Phone: Start: 02-26-2021 ADD ON LAB TEST Sherrill Rivero TRAFFIC MANAGER - DRIP MOLDER Work Phone: Start: 02-26-2021 Radiologic exam abdomen 1 view Patience Geiger TRAFFIC MANAGER - DRIP MOLDER Work Phone: Start: 02-26-2021 Basic metabolic panel calcium total Patience Geiger TRAFFIC MANAGER - DRIP MOLDER Work Phone: Start: 02-26-2021 Hepatic function panel Patience Geiger TRAFFIC MANAGER - DRIP MOLDER Work Phone: Start: 02-25-2021 ADD ON LAB TEST Yamile Jania TRAFFIC MANAGER - DRIP MOLDER Work Phone: Start: 02-25-2021 ADD ON LAB TEST Yamile Jania TRAFFIC MANAGER - DRIP MOLDER Work Phone: Start: 02-25-2021 Basic metabolic panel calcium total Patience Geiger TRAFFIC MANAGER - [facility] Work Phone: Start: 02-24-2021 BASIC METABOLIC PANEL W/ REFLEX TO MG FOR LOW K Yamile Maldonado TRAFFIC MANAGER - [facility] Work Phone: Start: 02-24-2021 Blood count complete automated Yamile sandoval TRAFFIC MANAGER - [facility] Work Phone: Start: 02-23-2021 ADD ON LAB TEST Semaj Ward TRAFFIC MANAGER - [facility] Work Phone: Start: 02-23-2021 Radiologic exam abdomen 1 view Semaj Ward TRAFFIC MANAGER - [facility] Work Phone: Start: 02-23-2021 Comprehensive metabolic panel Semaj bales TRAFFIC MANAGER - [facility] Work Phone: Start: 02-23-2021 Culture bacterial quanttative colony count urine Semaj Ward TRAFFIC MANAGER - [facility] Work Phone: Start: 02-23-2021 Urnls dip stick/tablet rgnt auto w/o microscopy Semaj Ward TRAFFIC MANAGER - [facility] Work Phone: Start: 02-13-2021 BASIC METABOLIC PANEL W/ REFLEX TO MG FOR LOW K Pawel Guan MD Work Phone: Start: 02-13-2021 Blood count complete automated Pawel sousa MD Work Phone: Start: 02-12-2021 OPERATIVE REPORT 3m Scanning Start: 02-12-2021 Assay of magnesium Cameron Lima MD Work Phone: Start: 02-12-2021 BASIC METABOLIC PANEL W/ REFLEX TO MG FOR LOW K Pawel Guan MD Work Phone: Start: 02-11-2021 CT ABDOMEN PELVIS W WO CONTRAST Dayana Franks TRAFFIC MANAGER - [facility] Work Phone: Start: 02-11-2021 End: 02-11-2021 Culture bacterial quanttative colony count urine Gela Ruiz MD Work Phone: Start: 02-11-2021 Urnls dip stick/tablet rgnt auto w/o microscopy Gela Ruiz MD Work Phone: Start: 02-11-2021 Radiologic exam chest single view Gela Ruiz MD Work Phone: Start: 02-11-2021 Assay of lipase Gela Ruiz MD Work Phone: Start: 02-11-2021 CULTURE, BLOOD 1 Gela Ruiz MD Work Phone: Start: 02-11-2021 LACTATE, SEPSIS Gela Ruiz MD Work Phone: Start: 02-11-2021 Manual Differential panel - Blood Gela Ruiz MD Work Phone: Start: 01-25-2021 Assay of ferritin M Shahram Carrillo MD Work Phone: Start: 01-25-2021 C-reactive protein M Shahram Carrillo MD Work Phone: Start: 01-24-2021 Assay of ferritin M Shahram Carrillo MD Work Phone: Start: 01-24-2021 C-reactive protein M Shahram Carrillo MD Work Phone: Start: 01-23-2021 Iadna-dna/rna gi pthgn multiplex probe tq 12-25 M Shahram Carrillo MD Work Phone: Start: 01-23-2021 End: 01-23-2021 Assay of ferritin M Shahram Carrillo MD Work Phone: Start: 01-23-2021 C-reactive protein M Shahram Carrillo MD Work Phone: Start: 01-23-2021 Kidney img morphology vascular flow multiple Kodak Ferro MD Work Phone: Start: 01-22-2021 Assay of ferritin M Shahram Carrillo MD Work Phone: Start: 01-22-2021 C-reactive protein M Shahram Carrillo MD Work Phone: Start: 01-22-2021 RESPIRATORY PANEL, MOLECULAR, WITH COVID-19 M Shahram Carrillo MD Work Phone: Start: 01-13-2021 Culture bacterial quanttative colony count urine Donavan Roe MD Work Phone: Start: 01-13-2021 Urnls dip stick/tablet rgnt auto w/o microscopy Donavan Roe MD Work Phone: Start: 01-13-2021 Comprehensive metabolic panel Donavan Mejia MD Work Phone: Start: 01-03-2021 Basic metabolic panel calcium total Jen G Canas DO Work Phone: Start: 01-03-2021 Blood count complete auto&auto difrntl wbc Jen G Canas DO Work Phone: Start: 01-02-2021 Blood count complete auto&auto difrntl wbc Jen G Canas DO Work Phone: Start: 01-02-2021 RBC morphology finding Nom (Bld) Jen G Canas DO Work Phone: Start: 01-01-2021 Basic metabolic panel calcium total Jen G Canas DO Work Phone: Start: 12-31-2020 Ecg routine ecg w/least 12 lds w/i&r Jen G Canas DO Work Phone: Start: 12-31-2020 CT ABDOMEN PELVIS W WO CONTRAST Allison Adame MD Work Phone: Start: 12-30-2020 RESPIRATORY PANEL, MOLECULAR, WITH COVID-19 Moose Stoddard DO Work Phone: Start: 12-30-2020 Radiologic exam chest single view Terrance Adame MD Work Phone: Start: 12-30-2020 Comprehensive metabolic panel Franco Adame MD Work Phone: Start: 12-28-2020 Basic metabolic panel calcium total Jen G Canas DO Work Phone: Start: 12-28-2020 RBC morphology finding Nom (Bld) Kodak Ferro MD Work Phone: Start: 12-27-2020 Radiologic exam chest single view Kirsto n Call TRAFFIC MANAGER - DRIP MOLDER Work Phone: Start: 12-27-2020 Radiologic exam abdomen 1 view Kodak rodas MD Work Phone: Start: 12-27-2020 Basic metabolic panel calcium total Gil Brenda DO Work Phone: Start: 12-26-2020 OPERATIVE REPORT 3m Scanning Start: 12-26-2020 Prothrombin time Gil Brenda DO Work Phone: Start: 12-26-2020 Computed tomography of abdomen and pelvis with contrast Jen Yo Canas DO Work Phone: Start: 12-26-2020 Ct angiography chest w/contrast/noncontrast Jen Yo Canas DO Work Phone: Start: 12-26-2020 Ecg routine ecg w/least 12 lds w/i&r Rekha T Kashif DO Work Phone: Start: 12-26-2020 Blood count complete auto&auto difrntl wbc Jen Yo Canas DO Work Phone: Start: 12-25-2020 Basic metabolic panel calcium total Jen G Canas DO Work Phone: Start: 12-24-2020 Computed tomography of abdomen and pelvis with contrast Jen Yo Canas DO Work Phone: Start: 12-24-2020 Radiologic exam abdomen 1 view Jen Ram Sánchez esequiel DO Work Phone: Start: 12-24-2020 Basic metabolic panel calcium total Roxann Wilson MD Work Phone: Start: 12-23-2020 Blood count complete auto&auto difrntl wbc Roxann Wilson MD Work Phone: Start: 12-23-2020 Radiologic exam abdomen 1 view Tye Garcia MD Work Phone: Start: 12-23-2020 Basic metabolic panel calcium total Ziyad Whipple DO Work Phone: Start: 12-22-2020 Culture bacterial quanttative colony count urine Jennifer Szymanski DO Work Phone: Start: 12-22-2020 Urnls dip stick/tablet rgnt auto w/o microscopy Jennifer Szymanski DO Work Phone: Start: 12-22-2020 Special diagnostic procedures Pawel vinson MD Work Phone: Start: 12-22-2020 Culture bacterial blood aerobic w/id isolates Jennifer Szymanski DO Work Phone: Start: 12-22-2020 Prothrombin time Pawel Guan MD Work Phone: Start: 12-22-2020 CT ABDOMEN PELVIS W WO CONTRAST Jennifer Szymanski DO Work Phone: Start: 12-21-2020 Antibody screen Marlon Zimmer MD Work Phone: Start: 12-21-2020 Assay of lactate Marlon Zimmer MD Work Phone: Start: 12-21-2020 Blood typing serologic abo Jen Plata ps DO Work Phone: Start: 12-21-2020 CULTURE, BLOOD 1 Jennifer Szymanski DO Work Phone: Start: 12-21-2020 ADD ON LAB TEST Jennifer Szymanski DO Work Phone: Start: 12-21-2020 Comprehensive metabolic panel Jen Ram Phi llips DO Work Phone: Start: 12-11-2020 Blood count complete automated Cristel Armijo Work Phone: Hysterectomy DR CARLOS ALBERTO SMITH DO Ureteric structure ( body structure) PREM ARRIAGA DO Comment on above: stents x6 Plan of Treatment Date Care Activity Detail Author Start: 01-27-2075 RSV Immunization for Adults (1 - 1-dose 75+ series) RSV Immunization for Adults (1 - 1-dose 75+ series) [facility] Start: 01-27-2050 Zoster Vaccines (1 of 2) Zoste r Vaccines (1 of 2) [facility] Start: 02-26-2033 DTaP/Tdap/Td Vaccine s (7 - Td or Tdap) DTaP/Tdap/Td Vaccines (7 - Td or Tdap) [facility] Start: 02-26-2033 DTaP/Tdap/Td Vaccine s (8 - Td or Tdap) DTaP/Tdap/Td Vaccines (8 - Td or Tdap) [facility] Start: 02-26-2033 Urine microalbumin profile DTa P,Tdap,Td Vaccine (8 - Td or Tdap) [facility] Start: 07-03-2025 End: 07-03-2025 Admission to same day surgery center 07/03/2025 10:12 AM EDT - 07/03/2025 11:00 AM EDT Surgery Pain Management [id number] [id number] Fermín [place] [address] [place] [address] BLOCK NERVE SUPERIOR HYPOGASTRIC PLEXUS Pain Management Comment on above: BLOCK NERVE SUPERIOR HYPOGASTRIC PLEXUS Start: 07-03-2025 End: 07-03-2025 Injection anes superior hypogastric plexus BLOCK NERVE SUPERIOR HYPOGASTRIC PLEXUS Chronic abdominal pain Chronic pelvic pain in female 07/03/2025 10:12 AM EDT [facility] Start: 07-03-2025 Subsequent hospital visit by physician 07/03/2025 10:12 AM EDT Hospital Encounter Pain Management [address] [place] [address] Fermín [place] [address] [place] [address] Chronic abdominal pain [R10.9, G89.29], Chronic pelvic pain in female [R10.2, G89.29] Pain Management Comment on above: Chronic abdominal pa in [R10.9, G89.29], Chronic pelvic pain in female [R10.2, G89.29] Start: 07-03-2025 End: 07-03-2025 Unlisted procedure nervous system 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 Chronic abdominal pain Chronic pelvic pain in female 07/03/2025 10:12 AM EDT [facility] Start: 05-08-2025 Influenza vaccination S [facility] Start: 03-22-2025 End: 03-22-2025 Admission to same day surgery center Pain Management Comment on above: 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 NERVE Start: 03-22-2025 End: 03-22-2025 Injection anes superior hypogastric plexus [facility] Start: 03-22-2025 Subsequent hospital visit by physician Pain Management Comment on above: Chronic abdominal pa in [R10.9, G89.29], Chronic pelvic pain in female [R10.2, G89.29] Start: 03-22-2025 End: 03-22-2025 Unlisted procedure nervous system [facility] Start: 03-19-2025 Depression Monitoring Depression [facility] Start: 03-16-2025 Depression Monitoring Depression [facility] Start: 01-03-2025 End: 01-03-2025 Patient encounter procedure 01/03/2025 2:00 PM EDT Office Visit Pain Management [address] [place] [address] Yeni Villela MD [address] [place] [address] Chronic pain Pain Management Comment on above: Chronic pain Start: 01-02-2025 End: 01-02-2025 Patient encounter procedure 01/02/2025 11:30 AM EDT Appointment [facility] - ENDO [address] [place] [address] Xavier Mark MD [address] [place] [address] Type: [facility] - ENDO Comment on above: Type: Start: 11-07-2024 End: 11-07-2024 Patient encounter procedure 11/07/2024 1:30 PM EST Office Visit Pain Management [address] [facility] [address] [place] [address] Prem Dominguez MD [address] [facility] [id number] [place] [address] Left vm to call back to reschedule Pain Management Comment on above: Left vm to call back to reschedule Start: 10-03-2024 End: 10-03-2024 Patient encounter procedure 10/03/2024 8:30 AM EST Office Visit [facility] [address] [place] [address] Eric Hernandez DO [address] [place] [address] [facility] Start: 05-08-2024 COVID-19 Vaccine ( season) COVID-19 Vaccine () [facility] Start: 05-08-2024 Influenza vaccination Influenza Vacc ine (#1) [facility] Start: 04-29-2023 DTaP/Tdap/Td vaccine (6 - Td or Tdap) DTaP/Tdap/Td vaccine (6 - Td or Tdap) [facility] Start: 12-26-2022 Patient discharge [facility] Start: 12-26-2022 End: 12-26-2022 [facility] Start: 12-25-2022 Care planning and pr oblem solving actions [facility] Start: 12-24-2022 Care planning and pr oblem solving actions [facility] Start: 12-24-2022 Referral to gastroenterology service [facility] Start: 12-24-2022 Admission procedure [facility] Start: 12-23-2022 End: 12-24-2022 [facility] Start: 12-23-2022 Provision of activit y privileges [facility] Start: 12-23-2022 Admission procedure [facility] Start: 12-23-2022 Assessment of risk o f venous thromboembolism [facility] Start: 12-23-2022 Insertion of cathete r into peripheral vein [facility] Start: 12-23-2022 Providing care accor ding to standard [facility] Start: 12-23-2022 Procedure [facility] Start: 12-23-2022 Catheterization of vein [facility] Start: 12-23-2022 Following clinical p athway protocol [facility] Start: 12-23-2022 Patient referral to dietitian [facility] Start: 12-22-2022 Assay of lactate ASSAY OF LACTIC ACI D [facility] Start: 12-22-2022 Assay of lipase ASSAY OF LIPASE [facility] Start: 12-22-2022 Blood count complete auto&auto difrntl wbc COMPLETE CBC W/AUTO DIFF WBC [facility] Start: 12-22-2022 Comprehensive metabo lic panel COMPREHEN METABOLIC PANEL [facility] Start: 12-22-2022 Ct abdomen & pelvis w/contrast material CT ABD & PELV W/CONTRAST [facility] Start: 12-22-2022 Drug tst prsmv instr mnt chem analyzers pr date DRUG TEST PRSMV CHEM ANLYZR [facility] Start: 12-22-2022 Emergency department visit low/moder severity EMERGENCY DEPT VISIT [facility] Start: 12-22-2022 Iv infusion hydratio n each additional hour HYDRATE IV INFUSION ADD-ON [facility] Start: 12-22-2022 Iv infusion therapy/prophylaxis /dx 1st to 1 hr THER/PROPH/DIAG IV INF INIT [facility] Start: 12-22-2022 Therapeutic injectio n iv push each new drug TX/PRO/DX INJ NEW DRUG ADDON [facility] Start: 12-22-2022 Therapeutic prophylactic/dx injection subq/im THER/PROPH/DIAG INJ SC/IM [facility] Start: 12-22-2022 Urnls dip stick/tabl et reagent auto microscopy URINALYSIS AUTO W/SCOPE [facility] Start: 12-15-2022 Patient discharge [facility] Start: 12-15-2022 Care planning and pr oblem solving actions [facility] Start: 12-15-2022 [facility] Start: 12-13-2022 Following clinical p athway protocol [facility] Start: 12-13-2022 Assessment of risk o f venous thromboembolism [facility] Start: 12-13-2022 Incentive spirometry [facility] Start: 12-13-2022 Inhalation therapy procedure [facility] Start: 12-13-2022 Insertion of cathete r into peripheral vein [facility] Start: 12-13-2022 Insertion of nasogas tric tube [facility] Start: 12-13-2022 Introduction of urin dixie catheter [facility] Start: 12-13-2022 Measuring intake and output [facility] Start: 12-13-2022 Oxygen therapy [facility] Start: 12-13-2022 Patient referral to dietitian [facility] Start: 12-13-2022 Providing care accor ding to [facility] Start: 12-13-2022 Provision of activit y privileges [facility] Start: 12-13-2022 Referral to gastroenterology service [facility] Start: 12-13-2022 Referral to service [facility] Start: 12-13-2022 [facility] Start: 12-13-2022 Verification routine [facility] Start: 12-13-2022 Admission procedure [facility] Start: 12-12-2022 Patient discharge [facility] Start: 12-11-2022 Following clinical p athway protocol [facility] Start: 12-11-2022 Assessment of risk o f venous thromboembolism [facility] Start: 12-11-2022 Incentive spirometry [facility] Start: 12-11-2022 Insertion of cathete r into peripheral vein [facility] Start: 12-11-2022 Oxygen therapy [facility] Start: 12-11-2022 Providing care accor ding to [facility] Start: 12-11-2022 Referral to service [facility] Start: 12-11-2022 [facility] Start: 12-11-2022 Computed tomography of abdomen and pelvis with intravenous contrast Abdomen/Pelvis W IV Cont ONLY [facility] Start: 12-11-2022 Admission procedure [facility] Start: 12-11-2022 Verification routine [facility] Start: 12-11-2022 Assay of lipase ASSAY OF LIPASE [facility] Start: 12-11-2022 Assay of magnesium ASSAY OF MAGNESIU M [facility] Start: 12-11-2022 Assay of phosphorus inorganic ASSAY OF PHOSPHORUS [facility] Start: 12-11-2022 Assay of thyroid stimulating hormone tsh ASSAY THYROID STIM HORMONE [facility] Start: 12-11-2022 Blood count complete auto&auto difrntl wbc COMPLETE CBC W/AUTO DIFF WBC [facility] Start: 12-11-2022 Collection venous bl ood venipuncture ROUTINE VENIPUNCTURE [facility] Start: 12-11-2022 Comprehensive metabo lic panel COMPREHEN METABOLIC PANEL [facility] Start: 12-11-2022 Ct abdomen & pelvis w/contrast material CT ABD & PELV W/CONTRAST [facility] Start: 12-11-2022 Emergency department visit moderate severity EMERGENCY DEPT VISIT LOW MDM [facility] Start: 12-11-2022 Manj chest wall faci litate lung function subsq CHEST WALL MANIPULATION [facility] Start: 12-11-2022 Patient referral to dietitian [facility] Start: 03-14-2022 Depression Monitoring Depression Mon itoring [facility] Start: 02-27-2022 Diabetes mellitus screening Diabetes Screening [facility] Start: 11-06-2021 End: 11-06-2021 Patient encounter procedure 11/06/2021 Office Visit Urology Heriberto Barahona MD [address] [address] [facility] Start: 10-28-2021 End: 10-28-2021 Patient encounter procedure 10/28/2021 Office Visit Internal Medicine Hali Henry MD [address] [place] [address] [facility] Start: 09-16-2021 End: 09-16-2021 Patient encounter procedure 09/16/2021 Office Visit Internal Medicine Hali Henry MD [address] [place] [address] [facility] Start: 09-09-2021 Subsequent hospital visit by physician 09/09/2021 Hospital Encounter General Surgery Heriberto Barahona MD [address] [place] [address] [facility] Day Surgery Start: 09-09-2021 End: 09-09-2021 Patient encounter procedure 09/09/2021 [facility] General Surgery Heriberto Barahona MD [address] [place] [address] [facility] General Surgery Start: 09-05-2021 End: 09-05-2021 Patient encounter procedure 09/05/2021 Office Visit Internal Medicine Bev Leon MD [address] [place] [address] [facility] Start: 06-13-2021 End: 06-13-2021 Patient encounter procedure 06/13/2021 Office Visit Internal Medicine Steve Iglesias DO [address] [place] [address] [phone] [facility] Start: 05-08-2021 Influenza vaccination S [facility] [facility] Start: 05-08-2021 [facility] Work Phone: Start: 05-02-2021 End: 05-02-2021 Patient encounter procedure 05/02/2021 Office Visit Urology Heriberto Barahona MD [address] [place] [address] [phone] [facility] Start: 04-11-2021 HPV vaccine (2 - 3-d ose series) HPV vaccine (2 - 3-dose series) [facility] Work Phone: Start: 03-27-2021 End: 03-27-2021 Patient encounter procedure 03/27/2021 Office Visit Internal Medicine Hali Henry MD [address] [place] [address] [phone] [facility] Start: 03-14-2021 End: 03-14-2021 ambulatory [facility] Start: 03-13-2021 End: 03-13-2021 ambulatory [facility] Start: 02-20-2021 End: 02-20-2021 Office Visit 02/20/2021 Office Visit Gynecologic Oncology Madan Escobedo MD [address] [place] [address] [phone] [facility] [employer] [facility] Start: 01-27-2021 Screening for malign ant neoplasm of cervix [facility] Start: 01-14-2021 End: 01-14-2021 Evaluation and management of inpatient 01/14/2021 Office Visit Gynecologic Oncology Madan Escobedo MD [address] [place] [address] [phone] [facility] [employer] On[facility] Start: 01-08-2021 End: 01-08-2021 Patient encounter procedure 01/08/2021 Office Visit Infectious Diseases Ruth Ann Richards MD [address] [place] [address], [address] [place] [address] [phone] [facility] Start: 12-31-2020 End: 12-31-2020 Office Visit 12/31/2020 Office Visit Gynecologic Oncology Madan Escobedo MD [address] [place] [address] [phone] [facility] [employer] On[facility] Start: 12-18-2020 End: 12-18-2020 Appointment 12/18/2020 Appointment General Surgery Madan Escobedo MD [address], [address] [place] [address] [phone] [facility] Start: 01-27-2019 DTaP/Tdap/Td vaccine (1 - Tdap) DTaP/Tdap/Td vaccine (1 - Tdap) [facility] Work Phone: Start: 01-27-2019 [facility] Work Phone: Start: 01-27-2018 Hepatitis C screening Hepatitis C Sc reening [facility] Start: 01-27-2018 HIV screening HIV Screening [facility] Start: 2016 COVID-19 Vaccine (1) COVID-19 Vaccin e (1) [facility] Work Phone: Start: 2016 Screening for Chlamy roibn trachomatis [facility] Start: 01-27-2015 HIV screening [facility] Start: 01-27-2014 Peds To Adult Transi tion Annual Assessment Peds To Adult Transition Annual Assessment [facility] Start: 2012 COVID-19 Vaccine (1) COVID-19 Vaccin e (1) [facility] Work Phone: Start: 2012 Peds To Adult Transi tion Initial Discussion Peds To Adult Transition Initial Discussion [facility] Start: 2012 [facility] Work Phone: Start: 01-27-2011 HPV vaccine (1 - 2-d ose series) HPV vaccine (1 - 2-dose series) [facility] Work Phone: Start: 01-27-2011 [facility] Work Phone: Start: 01-27-2005 COVID-19 Vaccine (1) COVID-19 Vaccin e (1) [facility] Start: 01-27-2001 Varicella vaccine (1 of 2 - 2-dose childhood series) Varicella vaccine (1 of 2 - 2-dose childhood series) [facility] Work Phone: Start: 01-27-2001 [facility] Work Phone: Start: 2000 Hepatitis C screening [facility] Start: 2000 HIV screening HIV Screening [facility] Start: 2000 Lipid panel Lipid Panel [facility] th 5-Hydroxyindoleaceta te [Mass/volume] in 24 hour Urine [facility] 5-Hydroxyindoleaceti c acid measurement [facility] Basic metabolic 1999 panel - Serum or Plasma Basic Metabolic Panel Lab Routine Daily until discontinued starting 09/04/2021, 4 completed [facility] Work Phone: Comment on above: Daily until disconti nued starting 09/04/2021, 4 completed Basic metabolic 1999 panel - Serum or Plasma [facility] Work Phone: Comment on above: Daily until disconti nued starting 09/16/2021, 4 completed Basic Metabolic Pane l w/ Reflex to MG Basic Metabolic Panel w/ Reflex to MG Lab Routine Tomorrow AM until discontinued starting 02/12/2021, 2 completed [facility] Work Phone: Comment on above: Tomorrow AM until di scontinued starting 02/12/2021, 2 completed End: 09-14-2021 Basic Metabolic Panel w/ Reflex to MG Basic Metabolic Panel w/ Reflex to MG Lab Routine Tomorrow AM for 5 Occurrences starting 09/10/2021 until 09/14/2021, 2 completed [facility] Work Phone: Comment on above: Tomorrow AM for 5 Oc currences starting 09/10/2021 until 09/14/2021, 2 completed C peptide [Mass/volu me] in Serum or Plasma [facility] C-reactive protein C-Reactive Pr otein Lab Routine Daily until discontinued starting 01/22/2021, 4 completed [facility] Work Phone: Comment on above: Daily until disconti nued starting 01/22/2021, 4 completed End: 01-25-2021 C. difficile toxin Molecular C. difficile toxin Molecular Microbiology Routine 48 HRS for 48 Hours starting 01/25/2021 until 01/25/2021 [facility] Work Phone: Comment on above: 48 HRS for 48 Hours starting 01/25/2021 until 01/25/2021 Calcium, Ionized [facility] Work Phone: CBC panel - Blood by Automated count [facility] Work Phone: Comment on above: Daily until disconti nued starting 01/22/2021, 4 completed Tomorrow AM until di scontinued starting 02/12/2021, 2 completed End: 09-14-2021 CBC panel - Blood by Automated count CBC Lab Routine Tomorrow AM for 5 Occurrences starting 09/10/2021 until 09/14/2021, 2 completed [facility] Work Phone: Comment on above: Tomorrow AM for 5 Oc currences starting 09/10/2021 until 09/14/2021, 2 completed CBC panel - Blood by Automated count [facility] Work Phone: Comment on above: Daily until disconti nued starting 09/16/2021, 4 completed CBC W Auto Different ial panel - Blood [facility] Work Phone: Comment on above: Daily until disconti nued starting 12/27/2020, 2 completed CBC W Auto Different ial panel - Blood CBC Auto Differential Lab Routine Daily until discontinued starting 09/04/2021, 4 completed [facility] Work Phone: Comment on above: Daily until disconti nued starting 09/04/2021, 4 completed Comprehensive metabo lic 2000 panel - Serum or Plasma [facility] Work Phone: Culture, Blood 1 Culture, Blood 1 Microbiology STAT 02/11/2021 4:04 PM EDT [facility] Work Phone: Culture, Blood 2 Culture, Blood 2 Microbiology STAT 02/11/2021 4:47 PM EDT [facility] Work Phone: End: 09-02-2021 Culture, Urine [facility] Work Phone: Comment on above: Once for 1 Occurrenc es starting 09/02/2021 until 09/02/2021 D-Dimer, Quantitative D-Dimer, Q uantitative Lab Routine Daily until discontinued starting 01/22/2021, 4 completed [facility] Work Phone: Comment on above: Daily until disconti nued starting 01/22/2021, 4 completed End: 12-23-2025 EGD - THERAPEUTIC, EUS, OR TUBE INTERVENTIONS EGD - THERAPEUTIC, EUS, OR TUBE INTERVENTIONS Endoscopy Routine Periumbilical abdominal pain 1 Occurrences starting 12/23/2024 until 12/23/2025 [facility] Work Phone: Comment on above: 1 Occurrences starti ng 12/23/2024 until 12/23/2025 EKG 12 Lead EKG 12 Lead ECG Routine 09/06/2021 7:40 AM EST [facility] Work Phone: Ferritin [Mass/volum e] in Serum or Plasma Ferritin Lab Routine Daily until discontinued starting 01/22/2021, 4 completed [facility] Work Phone: Comment on above: Daily until disconti nued starting 01/22/2021, 4 completed End: 12-22-2020 FL RETROGRADE PYELOGRAM W WO KUB FL RETROGRADE PYELOGRAM W WO KUB Imaging Routine Once for 1 Occurrences starting 12/22/2020 until 12/22/2020 [facility] Work Phone: Comment on above: Once for 1 Occurrenc es starting 12/22/2020 until 12/22/2020 End: 12-26-2020 FL RETROGRADE PYELOGRAM W WO KUB FL RETROGRADE PYELOGRAM W WO KUB Imaging Routine Once for 1 Occurrences starting 12/26/2020 until 12/26/2020 [facility] Work Phone: Comment on above: Once for 1 Occurrenc es starting 12/26/2020 until 12/26/2020 FL RETROGRADE PYELOG EVON W WO KUB [facility] Work Phone: End: 02-12-2021 FL RETROGRADE PYELOGRAM W WO KUB FL RETROGRADE PYELOGRAM W WO KUB Imaging Routine Once for 1 Occurrences starting 02/12/2021 until 02/12/2021 [facility] Work Phone: Comment on above: Once for 1 Occurrenc es starting 02/12/2021 until 02/12/2021 IgA [Mass/volume] in Serum or Plasma [facility] IgE [Units/volume] i n Serum or Plasma [facility] IgG [Mass/volume] in Serum or Plasma [facility] IgM [Mass/volume] in Serum or Plasma [facility] End: 02-11-2021 Initiate Sepsis Narrator Initiate Sepsis Narrator Respiratory Care STAT Once for 1 Occurrences starting 02/11/2021 until 02/11/2021 [facility] Work Phone: Comment on above: Once for 1 Occurrenc es starting 02/11/2021 until 02/11/2021 Lactate dehydrogenas e [Enzymatic activity/volume] in Serum or Plasma Lactate Dehydrogenase Lab Routine Daily until discontinued starting 01/22/2021, 4 completed [facility] Work Phone: Comment on above: Daily until disconti nued starting 01/22/2021, 4 completed Lactic acid measurement [facility] Lactic acid measurement [facility] Magnesium [Mass/volu me] in Serum or Plasma [facility] Work Phone: Magnesium [Mass/volu me] in Serum or Plasma Magnesium Lab Routine Daily until discontinued starting 09/04/2021, 4 completed [email or web address]: Comment on above: Daily until disconti nued starting 09/04/2021, 4 completed End: 03-15-2025 MEDICATION ASSISTED TREATMENT PANEL MEDICATION ASSISTED TREATMENT PANEL Lab Routine Once (Lab) for 1 Occurrences starting 03/15/2025 until 03/15/2025 [facility] Work Phone: Comment on above: Once (Lab) for 1 Occ urrences starting 03/15/2025 until 03/15/2025 Nebulizer therapy HHN Treatment Respiratory Care Routine Every 4hr As Needed until discontinued starting 01/21/2021 [facility] Work Phone: Comment on above: Every 4hr As Needed until discontinued starting 01/21/2021 Oxygen therapy [Mini mum Data Set] [facility] Work Phone: Comment on above: Daily until disconti nued starting 12/21/2020 Daily until disconti nued starting 12/30/2020 Daily until disconti nued starting 01/13/2021 Daily until disconti nued starting 01/21/2021 Daily until disconti nued starting 02/11/2021 Daily until disconti nued starting 02/12/2021 Oxygen therapy [Mini mum Data Set] Initiate Oxygen Therapy Protocol Respiratory Care Routine Daily until discontinued starting 09/04/2021 [facility] Work Phone: Comment on above: Daily until disconti nued starting 09/04/2021 Oxygen therapy [Mini mum Data Set] Initiate Oxygen Therapy Protocol Respiratory Care Routine Daily until discontinued starting 09/09/2021 [facility] Work Phone: Comment on above: Daily until disconti nued starting 09/09/2021 Oxygen therapy [Mini mum Data Set] Initiate Oxygen Therapy Protocol Respiratory Care Routine Daily until discontinued starting 09/14/2021 [facility] Work Phone: Comment on above: Daily until disconti nued starting 09/14/2021 Patient [facility] Work [facility]: Patient referral [facility] Work Phone: Phosphate [Mass/volu me] in Serum or Plasma [facility] Work Phone: Phosphate [Mass/volu me] in Serum or Plasma Phosphorus Lab Routine Daily until discontinued starting 09/04/2021, 4 completed [facility] Work Phone: Comment on above: Daily until disconti nued starting 09/04/2021, 4 completed Procalcitonin Procalcitonin La b Routine Q48H until discontinued starting 02/11/2021, 1 completed [facility] Work Phone: Comment on above: Q48H until discontin ued starting 02/11/2021, 1 completed End: 09-09-2021 Surgical Pathology [facility] Work Phone: Comment on above: Once for 1 Occurrenc es starting 09/09/2021 until 09/09/2021 End: 09-15-2024 THC (marijuana), urine, confirmation [facility] Work Phone: Comment on above: Once (Lab) for 1 Occ urrences starting 09/15/2024 until 09/15/2024 Triglyceride [Mass/v olume] in Serum or Plasma [facility] Work Phone: Immunizations Immunization Date Immunization Notes Care Provider Fa [facility] 02-26-2023 tetanus toxoid, redu dahlia diphtheria toxoid, and acellular pertussis vaccine, adsorbed DR STANFORD RUANO MD [facility] 03-14-2021 Human Papillomavirus 9-valent vaccine Rachael Suggs MD Work Phone: [facility] 03-14-2021 Human Papillomavirus Quadval 1 PREM ARRIAGA DO [facility] Comment on above: Result Comment: 2023: VIS DATE: 07/06/2019 04-29-2013 HPV, unspecified formulation Heriberto Barahona MD Work Phone: [facility] Work Phone: 04-29-2013 meningococcal polysaccharide (groups A, C, Y and W-135) diphtheria toxoid conjugate vaccine (MCV4P) Heriberto Barahona MD Work Phone: [facility] Work Phone: 04-29-2013 tetanus toxoid, redu dahlia diphtheria toxoid, and acellular pertussis vaccine, adsorbed Heriberto Barahona MD Work Phone: [facility] Work Phone: 04-29-2013 varicella virus vaccine Pascual Barahona MD Work Phone: [facility] Work Phone: 07-17-2006 varicella virus vaccine Pascual Barahona MD Work Phone: [facility] Work Phone: 07-16-2006 diphtheria, tetanus toxoids and acellular pertussis vaccine, 5 pertussis antigens Heriberto Barahona MD Work Phone: [facility] Work Phone: 07-16-2006 diphtheria, tetanus toxoids and acellular pertussis vaccine, unspecified formulation PREM ARRIAGA DO [facility] 04-30-2005 diphtheria, tetanus toxoids and acellular pertussis vaccine, unspecified formulation Heriberto Barahona MD Work Phone: [facility] Work Phone: 04-30-2005 measles, mumps and rubella virus vaccine Heriberto Barahona MD Work Phone: [facility] Work Phone: 04-30-2005 measles/mumps/rubell a virus vaccine PREM ARRIAGA DO [facility] 04-30-2005 poliovirus vaccine, inactivated Heriberto Barahona MD Work Phone: [facility] Work Phone: 01-11-2003 diphtheria, tetanus toxoids and acellular pertussis vaccine, unspecified formulation Heriberto Barahona MD Work Phone: [facility] Work Phone: 01-11-2003 haemophilus influenz ae type b conjugate and Hepatitis B vaccine Heriberto Barahona MD Work Phone: [facility] Work Phone: 01-11-2003 measles, mumps and rubella virus vaccine Heriberto Barahona MD Work Phone: [facility] Work Phone: 01-11-2003 measles/mumps/rubell a virus vaccine PREM ARRIAGA DO [facility] 01-11-2003 poliovirus vaccine, inactivated Heriberto Barahona MD Work Phone: [facility] Work Phone: 2000 diphtheria, tetanus toxoids and acellular pertussis vaccine, unspecified formulation Heriberto Barahona MD Work Phone: [facility] Work Phone: 2000 haemophilus influenz ae type b conjugate and Hepatitis B vaccine Heriberto Barahona MD Work Phone: [facility] Work Phone: 2000 poliovirus vaccine, inactivated Heriberto Barahona MD Work Phone: [facility] Work Phone: 2000 diphtheria, tetanus toxoids and acellular pertussis vaccine, unspecified formulation Heriberto Barahona MD Work Phone: [facility] Work Phone: 2000 haemophilus influenz ae type b conjugate and Hepatitis B vaccine Heriberto Barahona MD Work Phone: [facility] Work Phone: 2000 poliovirus vaccine, inactivated Heriberto Barahona MD Work Phone: [facility] Work Phone: Payers Date Payer Category Payer Unknown [id number] 2023 Medicaid [id number] 2023 Medicaid HMO [id number] 2023 Self-pay [id number] 2021 Unknown [id number] 1. [id number] 2020 Unknown [id number] 1. [id number] 2000 Unknown [id number] 2.16.8 40.1.742953.3.579.2.627 2000 Unknown [id number] 2.16.8 40.1.230938.3.579.2.627 2000 Unknown [id number] 2.16.8 40.1.927345.3.579.2.627 2000 Unknown [id number] 2.16.8 40.1.568178.3.579.2.651 2000 Unknown [id number] 2.16. 840.1.728001.3.579.2.594 2000 Unknown [id number] 2.16. 840.1.848741.3.579.2.627 2000 Unknown [id number] 2.16. 840.1.430656.3.579.2.627 2000 Unknown [id number] 2.16. 840.1.920398.3.579.2.627 2000 Unknown [id number] 2.16. 840.1.260052.3.579.2.627 2000 Unknown [id number] 2.16. 840.1.547693.3.579.2.627 2000 Unknown [id number] 2.16.8 40.1.800308.3.579.2.627 2000 Unknown [id number] 2.16.8 40.1.394109.3.579.2.627 2000 Unknown [id number] 2.16.8 40.1.557743.3.579.2.627 2000 Unknown [id number] 2.16.8 40.1.960184.3.579.2.7 2000 Unknown [id number] 2.16.8 40.1.427348.3.579.2.627 Unknown [id number] 22feb [id number] Unknown [id number] 2.16.8 40.1.419048.3.579.2.462 Unknown [id number] 2.16.8 40.1.427829.3.579.2.462 Unknown [id number] 2.16.8 40.1.614007.3.579.2.462 Unknown [id number] 2.16.8 40.1.705512.3.579.2.462 Unknown [id number] 2.16.8 40.1.836918.3.579.2.462 Unknown [id number] 2.16.8 40.1.665444.3.579.2.462 Unknown [id number] 2.16.8 40.1.682925.3.579.2.462 Unknown [id number] 2.16.8 40.1.316431.3.579.2.462 Unknown [id number] 2.16.8 40.1.676279.3.579.2.462 Unknown [id number] 2.16.8 40.1.862661.3.579.2.462 Unknown [id number] 2.16.8 40.1.696545.3.579.2.462 Unknown [id number] 2.16.8 40.1.104660.3.579.2.462 Unknown [id number] 2.16.8 40.1.884594.3.579.2.462 Unknown [id number] 2.16.8 40.1.670088.3.579.2.462 Unknown [id number] 2.16.8 40.1.158580.3.579.2.462 Unknown [id number] 2.16.8 40.1.737231.3.579.2.462 Unknown [id number] 2.16.8 40.1.201944.3.579.2.462 Social History Date Type Detail Facility Start: 12-11-2020 End: 12-04-2024 Tobacco smoking status NHIS Never smoker [employer] Phone: Start: 11-15-2020 End: 12-11-2020 Tobacco use and exposure Never used [employer] Phone: Start: 12-11-2020 End: 03-22-2021 Alcohol intake Lifetime non-drinker (finding) [facility] Work Phone: Start: 11-15-2020 History SDOH Alcohol Frequency 1 [employer] Phone: Start: 2000 Sex Assigned At Not on file S [employer] Work Phone: Exposure to SARS-CoV -2 (event) Not sure [facility] Work Phone: Sex Assigned At [facility] Start: 09-02-2021 End: 03-17-2025 Alcohol intake Ex-drinker (finding) [employer] Phone: Start: 10-13-2021 End: 06-01-2023 Tobacco smoking status NHIS Unknown if ever smoked [facility] Start: 11-15-2018 None [facility] Start: 11-15-2018 Spouse/ Signif icant Other [facility] Start: 01-17-2021 Non-smoker [facility] Start: 2000 Sex Assigned At Female W [facility] Start: 08-22-2015 End: 04-07-2022 Sex Female (finding) [facility] Start: 07-30-2024 End: 09-15-2024 History of Social function [facility] Start: 07-30-2024 End: 09-15-2024 Alcohol Use Disorder Identification Test - Consumption [AUDIT-C[facility] How often to you hav e a drink containing alcohol? Never [facility] How many standard dr inks containing alcohol do you have on a typical day? Patient does not drink [facility] Has the Bolt, or water [employer] threatened to shut off services in your home in past 12Mo No [facility] (I/We) worried wheth er (my/our) food would run out before (I/we) got money to buy more. Never true [facility] History of tobacco use Passive smoker [facility] Tobacco Nicotine Use: denies. [facility] NEGATED: Highlighted row [facility] Medical Equipment Procedure Code Equipment Code Equipment Origin al Text Equipment Identifier Dates Cystoscopy, with retrograde pyelogram, ureteroscopy, laser procedure, and stent inser STENT,URETERAL PIGTAIL [id number] FDA Start: 07-15-2021 Cystoscopy, with retrograde pyelogram, ureteroscopy, laser procedure, and stent inser STENT,URETERAL PIGTAIL [id number] FDA Start: 07-15-2021 Cystoscopy, with retrograde pyelogram, ureteroscopy, laser procedure, and stent inser STENT,URETERAL PIGTAIL [id number] FDA Start: 07-15-2021 Cystoscopy, with retrograde pyelogram, ureteroscopy, laser procedure, and stent inser STENT,URETERAL PIGTAIL [id number] FDA Start: 07-15-2021 Cystoscopy, with retrograde pyelogram, ureteroscopy, laser procedure, and stent inser STENT,URETERAL PIGTAIL [id number] FDA Start: 07-15-2021 Cystoscopy, with retrograde pyelogram, ureteroscopy, laser procedure, and stent inser STENT,URETERAL PIGTAIL [id number] FDA Start: 07-15-2021 Cystoscopy, with retrograde pyelogram, ureteroscopy, laser procedure, and stent inser STENT,URETERAL PIGTAIL [id number] FDA Start: 07-15-2021 Cystoscopy, with retrograde pyelogram, ureteroscopy, laser procedure, and stent inser STENT,URETERAL PIGTAIL [id number] FDA Start: 07-15-2021 Cystoscopy, with retrograde pyelogram, ureteroscopy, laser procedure, and stent inser STENT,URETERAL PIGTAIL [id number] FDA Start: 07-15-2021 Cystoscopy, with retrograde pyelogram, ureteroscopy, laser procedure, and stent inser STENT,URETERAL PIGTAIL [id number] FDA Start: 07-15-2021 Cystoscopy, with retrograde pyelogram, ureteroscopy, laser procedure, and stent inser STENT,URETERAL PIGTAIL [id number] FDA Start: 07-15-2021 Cystoscopy, with retrograde pyelogram, ureteroscopy, laser procedure, and stent inser STENT,URETERAL PIGTAIL [id number] FDA Start: 07-15-2021 Goals Date Patient Goal Desired Activity /State Comment on above: Formatting of this n ote might be different from the original. I will work towards the following Behavioral Health goals: I will schedule a new appointment to establish care with a psychologist/counselor and/or psychiatrist. Barriers: none Plan for overcoming my barriers: Patient's mother will call psychiatrist and make an appointment, which she said she is working on Confidence: 06/16 Anticipated Goal Completion Date: Within the next month Functional Status Date Assessment Result Facility 03-14-2025 Total score [AUDIT-C] 0 03/14/20 25 11:28 PM Lyle Paulino, EMY [facility] 12-27-2024 Functional Status Independent [facility] 12-27-2024 Functional Status Valid [place] [facility] 12-10-2024 Are you deaf, or do you have serious difficulty hearing No 12/10/2024 11:26 AM Prem Villagran, EMY [facility] 12-10-2024 Are you blind, or do you have serious difficulty seeing, even when wearing glasses No 12/10/2024 11:26 AM Prem Villagran RN [facility] 12-10-2024 Do you have serious difficulty walking or climbing stairs No 12/10/2024 11:26 AM Prem Villagran, RN No [facility] 12-10-2024 Do you have difficul ty dressing or bathing No 12/10/2024 11:26 AM Prem Villagran, RN No [facility] 12-10-2024 Because of a physica l, mental, or emotional condition, do you have difficulty doing errands alone such as visiting a physician's office or shopping No 12/10/2024 11:26 AM Prem Villagran, RN No [facility] 10-16-2024 Are you deaf, or do you have serious difficulty hearing No 10/16/2024 11:18 AM Ruby English, EMY No [facility] 10-16-2024 Are you blind, or do you have serious difficulty seeing, even when wearing glasses No 10/16/2024 11:18 AM Ruby English, EMY No [facility] 10-16-2024 Do you have serious difficulty walking or climbing stairs No 10/16/2024 11:18 AM Ruby English, EMY No [facility] 10-16-2024 Do you have difficul ty dressing or bathing No 10/16/2024 11:18 AM Ruby English, EMY No [facility] 10-16-2024 Because of a physica l, mental, or emotional condition, do you have difficulty doing errands alone such as visiting a physician's office or shopping No 10/16/2024 11:18 AM Ruby English, EMY No [facility] 09-08-2024 Functional Status Independent [facility] 09-08-2024 Functional Status Standard Safet y ID band on, Allergy Band on, Call device within reach, Bed in low position, Wheels locked, Safety level maintained [facility] 09-07-2024 Functional Status Independent [facility] 09-07-2024 Functional Status Standard Safet y ID band on, Allergy Band on, Call device within reach, Bed in low position, Wheels locked, Upper/Half-Length side-rails up, Phone within reach, personal items within reach, Bedside Cart Locked, Safety level maintained [facility] [facility]24 Functional Status Nurse Ethan khan q2hrs Performed Other: 7a-3p [facility] 07-20-2024 Functional Status Sequential Com pression Device bilateral knee high applied/on [facility] 07-20-2024 Functional Status Single level home [facility] 07-20-2024 Functional Status Repositions self [facility] 07-20-2024 Functional Status [facility] 07-20-2024 Functional Status [facility] 07-19-2024 Functional Status Independent [facility] 07-19-2024 Functional Status Standard Safet y ID band on, Allergy Band on, Call device within reach, Bed in low position, Wheels locked, Upper/Half-Length side-rails up, personal items within reach, Bedside Cart Locked, Visitor at bedside [facility] 02-26-2023 Functional Status Activity Herman tanalex Independent [facility] 12-26-2022 Functional status Ambulates;Bath room Privilege [facility] Work Phone: 12-15-2022 Functional status Ambulates [facility] Work Phone: 12-12-2022 Functional status Ambulates;Up ad kehinde [facility] Work Phone: [facility] Mental Status Date Assessment Result Facility 12-27-2024 Mental Status Orientation Oriented x 4 [facility] 12-27-2024 [facility] Status [facility] 12-10-2024 Because of a physica l, mental, or emotional condition, do you have serious difficulty concentrating, remembering, or making decisions No 12/10/2024 11:26 AM Prem Villagran, EMY No [facility] 10-16-2024 Because of a physica l, mental, or emotional condition, do you have serious difficulty concentrating, remembering, or making decisions No 10/16/2024 11:18 AM Ruby English, EMY [facility] 09-08-2024 Mental Status Orientation Oriented x 4 [facility] 09-08-2024 Mental Status [facility] 09-07-2024 Mental Status Orientation Oriented x 4 [facility] 09-07-2024 Mental Status [facility] 07-20-2024 Mental Status Oriented x 4 [facility] 07-20-2024 Mental Status [facility] 07-19-2024 Mental Status Orientation Oriented x 4 [facility] 07-19-2024 Mental Status [facility] 06-01-2023 Cognitive function Level Of Cons ciousness Awake;Alert;Appropriate;Fol lows Commands [facility] Work Phone: 02-26-2023 Mental Status Orientation Oriented x 4 [facility] 02-26-2023 Mental Status [facility] 12-26-2022 Cognitive function Voice/Name [facility] Work Phone: 12-15-2022 Cognitive function Voice/Name [facility] Work Phone: 12-21-2021 Cognitive function Level Of Cons ciousness Awake;Alert;Appropriate;Fol lows Commands [facility] Work Phone: Clinical Notes 12-27-2020 to 03-18-2025 Iva Valladares RN - 03/15/2025 12:50 PM EDTJalebron Valladares RN - 03/15/2025 12:50 PM EDTCjohnny Agustin - Daisy Camilo RN - 03/15/2025 10:20 AM EDT Note Date & Type Note [facility] 03-18-2025 Note [facility] 03-18-2025 Note [facility] 03-16-2025 Hospital Discharge instructions Patient Education 03/16/2025 10:05:20 Abdominal Pain Abdominal Pain Abdominal pain is pain in the stomach or belly area. Everyone has this pain from time to time. In many cases it goes away on its own. But abdominal pain can sometimes be due to a serious problem, such as appendicitis. So it s important to know when to get help. Causes of abdominal pain There are many possible causes of abdominal pain. Common causes in adults include: Constipation, diarrhea, or gas Stomach acid flowing back up into the esophagus (acid reflux or heartburn) Severe acid reflux, called GERD (gastroesophageal reflux disease) A sore in the lining of the stomach or small intestine (peptic ulcer) Inflammation of the gallbladder, liver, or pancreas Gallstones or kidney stones Appendicitis Intestinal blockage An internal organ pushing through a muscle or other tissue (hernia) Urinary tract infections In women, menstrual cramps, fibroids, ovarian cysts, pelvic inflammatory disease, or endometriosis Inflammation or infection of the intestines, including Crohn's disease and ulcerative colitis Irritable bowel syndrome Diagnosing the cause of abdominal pain Your healthcare provider will give you a physical exam help find the cause of your pain. If needed, you will have tests. Belly pain has many possible causes. So it can be hard to find the reason for your pain. Giving details about your pain can help. Tell your provider where and when you feel the pain, and what makes it better or worse. Also let your provider know if you have other symptoms such as: Fever Tiredness Upset stomach (nausea) Vomiting Changes in bathroom habits Blood in the stool or black, tarry stool Weight loss that you can't explain (involuntary weight loss?) Also report any family history of stomach or intestinal problems, or cancers. Tell your provider about all your alcohol use and drug use. Tell your provider about all medicines you use, including herbs, vitamins, and supplements. Treating abdominal pain Some causes of pain need emergency medical treatment right away. These include appendicitis or a bowel blockage. Other problems can be treated with rest, fluids, or medicines. Your healthcare provider can give you specific instructions for treatment or self-care based on what is causing your pain. If you have vomiting or diarrhea, sip water or other clear fluids. When you are ready to eat solid foods again, start with small amounts of [id number], low-fat foods. These include apple sauce, toast, or crackers. When to get medical care Call 911 or go to the hospital right away if you: Can t pass stool and are vomiting Are vomiting blood or have bloody diarrhea or black, tarry diarrhea Have chest, neck, or shoulder pain Feel like you might pass out Have pain in your shoulder blades with nausea Have sudden, severe belly pain Have new, severe pain unlike any you have felt before Have a belly that is rigid, hard, and hurts to touch Call your healthcare provider if you have: Pain for more than 5 days Bloating for more than 2 days Diarrhea for more than 5 days A fever of 100.4 F (38 C) or higher, or as directed by your healthcare provider Pain that gets worse Weight loss for no reason Continued lack of appetite Blood in your stool How to prevent abdominal pain Here are some tips to help prevent abdominal pain: Eat smaller amounts of food at each meal. Don't eat greasy, fried, or other high-fat foods. Don't eat foods that give you gas. Exercise regularly. Drink plenty of fluids. To help prevent GERD symptoms: Quit smoking. Reduce alcohol and foods that increase stomach acid. Don't use aspirin or [id number] pain and fever medicines, if possible. This includes nonsteroidal anti-inflammatory drugs (NSAIDs). Lose excess weight. Finish eating at least 2 hours before you go to bed or lie down. Raise the head of your bed. [id number] [employer] [place] [address]. All rights reserved. This information is not intended as a substitute for professional medical care. Always follow your healthcare professional's instructions. Follow Up Care 03/16/2025 09:47:43 With:Follow up with primary care provider Address:Unknown When:2-4 days [facility] 03-15-2025 Note [facility] 03-15-2025 Nurse Note Patient was given discharge instructions by Bindu QUEVEDO. Patient opted to walk to discharge area with significant other. [facility] 03-15-2025 Nurse Note Patient was given discharge instructions by Bindu QUEVEDO. Patient opted to walk to discharge area with significant other. documented in this encounter [facility] 03-15-2025 Note Formatting of this n ote might be different from the original. Care Management Progress Note Short Medical why still here: abdominal pain, IV medications including pain control (awaiting anesthesia consult for acute pain management). Planned Discharge Disposition: Home or Self Care Barriers/Today we still Wait: Clinical stability, Administering IV medications, Garbage Truck Driver recommendations (comment), Symptomatic control (anesthesia consult for pain control) Length of Stay (Days): 0 GMLOS: No GMLOS Documented Patient discussed on daily multidisciplinary rounds. Updated by RN and TRAFFIC MANAGER that patient in need of PCP-per report, current PCP will no longer see her. CDU MASSAGE THERAPIST aware and kindly assisting. [facility] 03-15-2025 Note Formatting of this n ote might be different from the original. Care Management Progress Note Short Medical why still here: abdominal pain, IV medications including pain control (awaiting anesthesia consult for acute pain management). Planned Discharge Disposition: Home or Self Care Barriers/Today we still Wait: Clinical stability, Administering IV medications, Garbage Truck Driver recommendations (comment), Symptomatic control (anesthesia consult for pain control) Length of Stay (Days): 0 GMLOS: No GMLOS Documented Patient discussed on daily multidisciplinary rounds. Updated by RN and TRAFFIC MANAGER that patient in need of PCP-per report, current PCP will no longer see her. CDU MASSAGE THERAPIST aware and kindly assisting. [facility] 03-15-2025 Miscellaneous Notes Care Management Progress Note Short Medical why still here: abdominal pain, IV medications including pain control (awaiting anesthesia consult for acute pain management). Planned Discharge Disposition: Home or Self Care Barriers/Today we still Wait: Clinical stability, Administering IV medications, Garbage Truck Driver recommendations (comment), Symptomatic control (anesthesia consult for pain control) Length of Stay (Days): 0 GMLOS: No GMLOS Documented Patient discussed on daily multidisciplinary rounds. Updated by RN and TRAFFIC MANAGER that patient in need of PCP-per report, current PCP will no longer see her. CDU MASSAGE THERAPIST aware and kindly assisting. documented in this encounter [facility] 03-15-2025 Note [facility] 03-15-2025 Emergency department Note Pt taken by arely, RN to CDU. [facility] 03-15-2025 Emergency department Note Pt taken by arely, RN to CDU. Ketamine administration pharmacy log completed and bedside with pt belongings. EMERGENCY DEPARTMENT ENCOUNTER Pt Name: Addis Torres Birthdate 2000 Date of evaluation: 03/14/2025 ED Provider: Heriberto Rowley MD CHIEF COMPLAINT Chief Complaint Patient presents with Abdominal Pain Pt presents to ED through triage for abdominal pain x1 week. N/V/D. Pt A&Ox3 on arrival, pain 10/10. HISTORY OF PRESENT ILLNESS (Location/Symptom, Timing/Onset, Context/Setting, Quality, Duration, Modifying Factors, Severity) Note limiting factors. I wore appropriate PPE for the entirety of this encounter. HPI Addis Torres is a 25 y.o. who presents to the emergency department with chief complaint of central abdominal pain with nausea and vomiting. Patient relates to me that this flare started yesterday the in the afternoon however she reports to triage that she has been having abdominal pain for the last week with nausea vomiting and diarrhea. Patient has a history of recurrent abdominal pain. Recently had a nerve block and is scheduled for a splanchnic nerve block with Dr. Lopez through the [facility] later this month. Patient states that ketamine has helped in the past. She has been known to use marijuana. Patient has had multiple ED visits, admissions, and outpatient evaluations for her recurrent abdominal pain with no clear etiology as of yet. She denies any new features to her abdominal pain today compared to multiple previous episodes. Denies any recent injuries or illnesses. Nursing Notes were reviewed. Limitations to history: None Outside historians: Significant other REVIEW OF SYSTEMS Review of Systems All other systems reviewed and are negative. Pertinent positives and negatives as per HPI. PAST MEDICAL HISTORY Medical History[1] SURGICAL HISTORY Surgical History[2] CURRENT MEDICATIONS Previous Medications GABAPENTIN (NEURONTIN) 100 MG CAPSULE Take 200 mg by mouth 3 times daily. MIRTAZAPINE (REMERON) 15 MG TABLET Take 1 tablet (15 mg) by mouth Nightly. OLANZAPINE (ZYPREXA) 5 MG TABLET Take 1 tablet (5 mg) by mouth Nightly for 15 days. PANTOPRAZOLE (PROTONIX) 40 MG EC TABLET Take 1 tablet (40 mg) by mouth 2 times daily (before meals). Do not crush, chew, or split. ALLERGIES Ceftriaxone, Promethazine, and Lactated ringers FAMILY HISTORY Family History[3] SOCIAL HISTORY Social History[4] SCREENINGS Damion Coma Scale Best Eye Response: Spontaneous Best Verbal Response: Oriented Best Motor Response: Follows commands [place] Coma Scale Score: 15 PHYSICAL EXAM ED Triage Vitals [03/15/25 0121] Temp Heart Rate Resp BP 37.3 C (99.2 F) 95 20 (!) 163/104 SpO2 Temp Source Heart Rate Source Patient Position 100 % Temporal Monitor -- BP Location FiO2 (%) -- -- Physical Exam Vitals and nursing note reviewed. Constitutional: General: She is not in acute distress. Appearance: She is obese. She is ill-appearing. She is not toxic-appearing or diaphoretic. HENT: Mouth/Throat: Mouth: Mucous membranes are moist. Eyes: General: No scleral icterus. Cardiovascular: Rate and Rhythm: Normal rate. Pulmonary: Effort: Pulmonary effort is normal. Abdominal: General: Abdomen is protuberant. There is no distension. Tenderness: There is generalized abdominal tenderness. There is no guarding or rebound. Neurological: Mental Status: She is alert and oriented to person, place, and time. Psychiatric: Attention and Perception: Attention normal. Mood and Affect: Affect is tearful. Speech: Speech is rapid and pressured. DIAGNOSTIC RESULTS Procedures/EKG: EKG was reviewed by myself. Physician EKG interpretation can be found in [facility] RADIOLOGY (Per Emergency Physician): Interpretation per the Radiologist below, if available at the time of this note: No orders to display ED BEDSIDE ULTRASOUND: Performed by ED Physician - none LABS: Labs Reviewed BASIC METABOLIC PANEL - Abnormal Result Value SODIUM 137 POTASSIUM 3.0 (*) CHLORIDE 101 CARBON DIOXIDE 22 UREA NITROGEN 9 CREATININE 0.88 GLUCOSE 151 (*) CALCIUM 10.0 ANION GAP 14 (*) eGFR >90.0 HEPATIC FUNCTION PANEL - Abnormal BILIRUBIN, TOTAL 0.5 BILIRUBIN, DIRECT 0.2 ALKALINE PHOSPHATASE 63 AST (SGOT) 16 ALT 16 ALBUMIN 4.7 TOTAL PROTEIN 9.0 (*) CBC WITH AUTO DIFFERENTIAL - Abnormal Auto WBC 10.1 RBC 4.50 Hemoglobin 10.3 (*) Hematocrit 33.1 (*) MCV 73.6 (*) MCH 22.9 (*) MCHC 31.1 RDW 17.7 (*) Platelets 364 MPV 9.0 MANUAL DIFFERENTIAL (CELLAVISION) - Abnormal RBC Morphology abnormal Anisocytosis Slight (*) Poikilocytes Slight (*) Microcytes Slight (*) Hypochromia Slight (*) Ovalocytes Slight (*) Stomatocytes Slight (*) Neutrophils % 91 (*) Bands % 1 (*) Lymphocytes % 4 (*) Monocytes % 4 (*) Absolute Neutrophil Count 9.3 (*) Bands Absolute 0.1 (*) Lymphocytes Absolute 0.4 (*) Monocytes Absolute 0.4 Neutrophils Manual 91 Lymphocytes Manual 4 Monocytes Manual 4 Eosinophils Manual Basophils Manual Bands Manual 1 Metamyelocytes Manual Myelocytes Manual Promyelocytes Manual Blasts Manual Atypical Lymphocytes Manual Unclassified Cells, Manual LACTIC ACID WITH REFLEX - Normal LACTIC ACID 1.7 LIPASE - Normal LIPASE 14 MAGNESIUM - Normal MAGNESIUM 1.7 Narrative: Higher values can be expected in females during menses. HCG QUANTITATIVE BLOOD HCG QUANTITATIVE <2.5 Narrative: Values in should double every 2 to 3 days for the first 6 weeks. Elevated concentrations of human chorionic gonadotropin (hCG) measured in the first trimester of are observed in normal , but may serve as an indication of chorionic carcinoma, hydatiform mole, or multiple . Decreasing hCG concentrations indicate threatened or missed , recent termination of , ectopic , gestosis or intrauterine . [place]- and postmenopausal females may have detectable hCG concentrations (< or = to 14 mIU/mL) due to pituitary production of hCG. Serum follicle-stimulating hormone measurement may aid in ruling-out in this population. Cutoffs of greater than 20 to 45 mIU/mL have been suggested and are method dependent. False-elevations (called phantom human chorionic gonadotropin: hCG) may occur with patients who have human antianimal or heterophilic antibodies. Some specimens may not dilute linearly due to abnormal forms of hCG. Elevated hCG concentrations not associated with are found in patients with other diseases such as tumors of the germ cells, ovaries, bladder, pancreas, stomach, lungs, and liver. This test is not intended to detect or monitor tumors or gestational trophoblastic disease. All other labs were within normal range or not returned as of this dictation. EMERGENCY DEPARTMENT COURSE and DIFFERENTIAL DIAGNOSIS/MDM: Vitals: Vitals: 03/15/25 0306 03/15/25 0312 03/15/25 0323 03/15/25 0530 BP: (!) 144/101 (!) 144/90 134/76 BP Location: Right arm Right arm Right arm Patient Position: Sitting Sitting Sitting Pulse: 104 80 95 Resp: 22 17 20 Temp: TempSrc: SpO2: 100% 100% 100% 100% Weight: 97.5 kg (215 lb) Height: 1.702 m (5' 7) Patient presents for diffuse abdominal pain, mainly central abdominal pain with nausea and vomiting. This is a recurrent issue for the patient with a significant number of ED visits and outpatient evaluations with no clear etiology found as of yet. She does continue to use marijuana. On chart review I see the patient has had multiple CT scans of the abdomen and pelvis, none of which have shown any acute abnormality or etiology for the patient's pain. She has also had a normal gastric emptying study as well as recent EGD which showed no abnormality. Patient did have recent nerve block which did seem to help with her pain and she is scheduled for a splanchnic nerve block in 1 week. She does have a pain management referral that is pending after the splanchnic nerve block. Patient frequently yelping in pain but only intermittently and as best I can tell, only to grab attention as she is frequently seen in no significant distress while passing her bed in the ED. Patient states that ketamine has worked for her in the past. I do not feel opiates are appropriate management at this time given the frequency of her visits with no clear etiology. Pain dose ketamine infusion was initiated in the ED as well as Zofran for her reported nausea. Patient not seen to have any emesis here in the ED but does have an emesis bag with some clear fluid in it. I did not appreciate any retching after an extended observation period and in the ED while patient was still in triage and visible to me for an extended period of time. No significant derangement on CBC, hepatic panel, lipase. screen is negative. BMP does show hypokalemia which is not atypical for the patient. Oral repletion initiated here in the ED. Given the frequency of CT scans patient has received with no clear source I do not feel CT imaging was appropriate today and this young patient. Upon reevaluation patient is continuing to request medications for pain. IV Toradol administered at that time. Upon reevaluation after Toradol patient is shows no significant improvement. Patient subsequently treated with IM Haldol. This did completely resolve the nausea however she is continuing to complain of abdominal pain though she does seem to have improved pain. Due to her continued pain and hypokalemia patient be admitted for continued evaluation and management. Diagnoses as of 03/15/25 0633 Abdominal pain, generalized Nausea Hypokalemia Medications potassium chloride (Klor-Con) packet 40 mEq (40 mEq Oral Not Given 03/15/25 0409) sodium chloride 0.9 % bolus 1,000 mL ( IntraVENous Rate/Dose Verify 03/15/25 0531) ketamine 24.5 mg in sodium chloride 0.9 % 50 mL ivpb (0 mg IntraVENous Stopped 03/15/25 0407) ondansetron (Zofran) injection 4 mg (4 mg IntraVENous Given 03/15/25 0240) ketorolac (Toradol) injection 30 mg (30 mg IntraVENous Given 03/15/25 0403) haloperidol lactate (Haldol) injection 2 mg (2 mg IntraMUSCular Given 03/15/25 0526) aluminum & magnesium hydroxide-simethicone (Mylanta) 200-200-20 MG/5ML oral suspension 20 mL (20 mL Oral Given 03/15/25 0527) famotidine (Pepcid) 20 mg in sodium chloride (PF) 0.9 % 10 mL injection (20 mg IntraVENous Given 03/15/25 0522) REVAL: CRITICAL CARE TIME None CONSULTS: None PROCEDURES: Unless otherwise noted below, none Procedures Patients symptoms are consistent with sepsis, severe sepsis, or septic shock (If yes use .sepsiscoremeasure): Now FINAL IMPRESSION 1. Abdominal pain, generalized 2. Nausea 3. Hypokalemia DISPOSITION Admit 03/15/2025 06:30:57 AM PATIENT REFERRED TO: No follow-up provider specified. DISCHARGE MEDICATIONS: New Prescriptions No medications on file (Comment: Please note this report has been produced using speech recognition software and may contain errors related to that system including errors in grammar, punctuation, and spelling, as well as words and phrases that may be inappropriate. If there are any questions or concerns please feel free to contact the dictating provider for clarification.) Heriberto Rowley MD (electronically signed) Emergency Medicine Provider [1] Past Medical History: Diagnosis Date Anxiety Cancer (CMS/HCC) (HCC) s/p TIARRA 12/2020 with cervix removed and salpingectomy Depression Intraoperative ureteral injury Migraine PCOS (polycystic ovarian syndrome) [2] Past Surgical History: Procedure Laterality Date CHOLECYSTECTOMY COLONOSCOPY 02/28/2021 CYSTOSCOPY 12/26/2020 C and P CYSTOSCOPY Left 07/28/2021 Cystoscopy, pyelograms, left antegrade nephrostogram, left nephrostomy tube removal, left ureteral stent exchange (6fr 26cm) DILATION AND CURETTAGE OF UTERUS 11/08/2020 HYSTEROSCOPY 11/08/2020 OTHER SURGICAL HISTORY Left 07/28/2021 Stent exchange OTHER SURGICAL HISTORY 09/09/2021 Robotic assisted laparoscopic left ureteroureterotomy, ureterotomy with insertion of antegrade stent SALPINGECTOMY Bilateral 12/18/2020 Dr. Escobedo TOTAL ABDOMINAL HYSTERECTOMY 12/18/[address] Escobedo URETERAL STENT PLACEMENT Left 02/12/2021 [3] Family History Problem Relation Name Age of Onset High Blood Pressure Mother Cancer Mother's Sister ovarian Diabetes Mother Breast cancer Mother's Sister Breast cancer Maternal Grandmother Colon cancer Mother's Sister [4] Social History Socioeconomic History Marital status: Single Tobacco Use Smoking status: Never Smokeless tobacco: Never Substance and Sexual Activity Alcohol use: Not Currently Drug use: Yes Types: Marijuana Comment: quit 3 mos ago Social Drivers of Health Food Insecurity: No Food Insecurity (12/05/2024) Received from [facility] Hunger Vital Sign Worried About Running Out of Food in the Last Year: Never true Ran Out of Food in the Last Year: Never true Transportation Needs: Unmet Transportation Needs (12/05/2024) Received from [facility] PRAPARE - Transportation Lack of Transportation (Medical): No Lack of Transportation (Non-Medical): Yes Intimate Partner Violence: Not At Risk (09/17/2024) Humiliation, Afraid, Rape, and Kick questionnaire Fear of Current or Ex-Partner: No Emotionally Abused: No Physically Abused: No Sexually Abused: No Housing Stability: Unknown (12/05/2024) Received from [facility] Housing Stability Vital Sign Unable to Pay for Housing in the Last Year: No Homeless in the Last Year: No Heriberto Rowley MD 03/15/25 0633 documented in this encounter [facility] 03-15-2025 Emergency department Note Ketamine administration pharmacy log completed and bedside with pt belongings. [facility] 03-14-2025 Physician Emergency department Note EMERGENCY DEPARTMENT ENCOUNTER Pt Name: Addis Torres Birthdate 2000 Date of evaluation: 03/14/2025 ED Provider: Heriberto Rowley MD CHIEF COMPLAINT Chief Complaint Patient presents with Abdominal Pain Pt presents to ED through triage for abdominal pain x1 week. N/V/D. Pt A&Ox3 on arrival, pain 10/10. HISTORY OF PRESENT ILLNESS (Location/Symptom, Timing/Onset, Context/Setting, Quality, Duration, Modifying Factors, Severity) Note limiting factors. I wore appropriate PPE for the entirety of this encounter. HPI Addis Torres is a 25 y.o. who presents to the emergency department with chief complaint of central abdominal pain with nausea and vomiting. Patient relates to me that this flare started yesterday the in the afternoon however she reports to triage that she has been having abdominal pain for the last week with nausea vomiting and diarrhea. Patient has a history of recurrent abdominal pain. Recently had a nerve block and is scheduled for a splanchnic nerve block with Dr. Lopez through the [facility] later this month. Patient states that ketamine has helped in the past. She has been known to use marijuana. Patient has had multiple ED visits, admissions, and outpatient evaluations for her recurrent abdominal pain with no clear etiology as of yet. She denies any new features to her abdominal pain today compared to multiple previous episodes. Denies any recent injuries or illnesses. Nursing Notes were reviewed. Limitations to history: None Outside historians: Significant other REVIEW OF SYSTEMS Review of Systems All other systems reviewed and are negative. Pertinent positives and negatives as per HPI. PAST MEDICAL HISTORY Medical History[1] SURGICAL HISTORY Surgical History[2] CURRENT MEDICATIONS Previous Medications GABAPENTIN (NEURONTIN) 100 MG CAPSULE Take 200 mg by mouth 3 times daily. MIRTAZAPINE (REMERON) 15 MG TABLET Take 1 tablet (15 mg) by mouth Nightly. OLANZAPINE (ZYPREXA) 5 MG TABLET Take 1 tablet (5 mg) by mouth Nightly for 15 days. PANTOPRAZOLE (PROTONIX) 40 MG EC TABLET Take 1 tablet (40 mg) by mouth 2 times daily (before meals). Do not crush, chew, or split. ALLERGIES Ceftriaxone, Promethazine, and Lactated ringers FAMILY HISTORY Family History[3] SOCIAL HISTORY Social History[4] SCREENINGS Damion Coma Scale Best Eye Response: Spontaneous Best Verbal Response: Oriented Best Motor Response: Follows commands Damion Coma Scale Score: 15 PHYSICAL EXAM ED Triage Vitals [03/15/25 0121] Temp Heart Rate Resp BP 37.3 C (99.2 F) 95 20 (!) 163/104 SpO2 Temp Source Heart Rate Source Patient Position 100 % Temporal Monitor -- BP Location FiO2 (%) -- -- Physical Exam Vitals and nursing note reviewed. Constitutional: General: She is not in acute distress. Appearance: She is obese. She is ill-appearing. She is not toxic-appearing or diaphoretic. HENT: Mouth/Throat: Mouth: Mucous membranes are moist. Eyes: General: No scleral icterus. Cardiovascular: Rate and Rhythm: Normal rate. Pulmonary: Effort: Pulmonary effort is normal. Abdominal: General: Abdomen is protuberant. There is no distension. Tenderness: There is generalized abdominal tenderness. There is no guarding or rebound. Neurological: Mental Status: She is alert and oriented to person, place, and time. Psychiatric: Attention and Perception: Attention normal. Mood and Affect: Affect is tearful. Speech: Speech is rapid and pressured. DIAGNOSTIC RESULTS Procedures/EKG: EKG was reviewed by myself. Physician EKG interpretation can be found in [facility] RADIOLOGY (Per Emergency Physician): Interpretation per the Radiologist below, if available at the time of this note: No orders to display ED BEDSIDE ULTRASOUND: Performed by ED Physician - none LABS: Labs Reviewed BASIC METABOLIC PANEL - Abnormal Result Value SODIUM 137 POTASSIUM 3.0 (*) CHLORIDE 101 CARBON DIOXIDE 22 UREA NITROGEN 9 CREATININE 0.88 GLUCOSE 151 (*) CALCIUM 10.0 ANION GAP 14 (*) eGFR >90.0 HEPATIC FUNCTION PANEL - Abnormal BILIRUBIN, TOTAL 0.5 BILIRUBIN, DIRECT 0.2 ALKALINE PHOSPHATASE 63 AST (SGOT) 16 ALT 16 ALBUMIN 4.7 TOTAL PROTEIN 9.0 (*) CBC WITH AUTO DIFFERENTIAL - Abnormal Auto WBC 10.1 RBC 4.50 Hemoglobin 10.3 (*) Hematocrit 33.1 (*) MCV 73.6 (*) MCH 22.9 (*) MCHC 31.1 RDW 17.7 (*) Platelets 364 MPV 9.0 MANUAL DIFFERENTIAL (CELLAVISION) - Abnormal RBC Morphology abnormal Anisocytosis Slight (*) Poikilocytes Slight (*) Microcytes Slight (*) Hypochromia Slight (*) Ovalocytes Slight (*) Stomatocytes Slight (*) Neutrophils % 91 (*) Bands % 1 (*) Lymphocytes % 4 (*) Monocytes % 4 (*) Absolute Neutrophil Count 9.3 (*) Bands Absolute 0.1 (*) Lymphocytes Absolute 0.4 (*) Monocytes Absolute 0.4 Neutrophils Manual 91 Lymphocytes Manual 4 Monocytes Manual 4 Eosinophils Manual Basophils Manual Bands Manual 1 Metamyelocytes Manual Myelocytes Manual Promyelocytes Manual Blasts Manual Atypical Lymphocytes Manual Unclassified Cells, Manual LACTIC ACID WITH REFLEX - Normal LACTIC ACID 1.7 LIPASE - Normal LIPASE 14 MAGNESIUM - Normal MAGNESIUM 1.7 Narrative: Higher values can be expected in females during menses. HCG QUANTITATIVE BLOOD HCG QUANTITATIVE <2.5 Narrative: Values in should double every 2 to 3 days for the first 6 weeks. Elevated concentrations of human chorionic gonadotropin (hCG) measured in the first trimester of are observed in normal , but may serve as an indication of chorionic carcinoma, hydatiform mole, or multiple . Decreasing hCG concentrations indicate threatened or missed , recent termination of , ectopic , gestosis or intrauterine . [place]edios- and postmenopausal females may have detectable hCG concentrations (< or = to 14 mIU/mL) due to pituitary production of hCG. Serum follicle-stimulating hormone measurement may aid in ruling-out in this population. Cutoffs of greater than 20 to 45 mIU/mL have been suggested and are method dependent. False-elevations (called phantom human chorionic gonadotropin: hCG) may occur with patients who have human antianimal or heterophilic antibodies. Some specimens may not dilute linearly due to abnormal forms of hCG. Elevated hCG concentrations not associated with are found in patients with other diseases such as tumors of the germ cells, ovaries, bladder, pancreas, stomach, lungs, and liver. This test is not intended to detect or monitor tumors or gestational trophoblastic disease. All other labs were within normal range or not returned as of this dictation. EMERGENCY DEPARTMENT COURSE and DIFFERENTIAL DIAGNOSIS/MDM: Vitals: Vitals: 03/15/25 0306 03/15/25 0312 03/15/25 0323 03/15/25 0530 BP: (!) 144/101 (!) 144/90 134/76 BP Location: Right arm Right arm Right arm Patient Position: Sitting Sitting Sitting Pulse: 104 80 95 Resp: 22 17 20 Temp: TempSrc: SpO2: 100% 100% 100% 100% Weight: 97.5 kg (215 lb) Height: 1.702 m (5' 7) Patient presents for diffuse abdominal pain, mainly central abdominal pain with nausea and vomiting. This is a recurrent issue for the patient with a significant number of ED visits and outpatient evaluations with no clear etiology found as of yet. She does continue to use marijuana. On chart review I see the patient has had multiple CT scans of the abdomen and pelvis, none of which have shown any acute abnormality or etiology for the patient's pain. She has also had a normal gastric emptying study as well as recent EGD which showed no abnormality. Patient did have recent nerve block which did seem to help with her pain and she is scheduled for a splanchnic nerve block in 1 week. She does have a pain management referral that is pending after the splanchnic nerve block. Patient frequently yelping in pain but only intermittently and as best I can tell, only to grab attention as she is frequently seen in no significant distress while passing her bed in the ED. Patient states that ketamine has worked for her in the past. I do not feel opiates are appropriate management at this time given the frequency of her visits with no clear etiology. Pain dose ketamine infusion was initiated in the ED as well as Zofran for her reported nausea. Patient not seen to have any emesis here in the ED but does have an emesis bag with some clear fluid in it. I did not appreciate any retching after an extended observation period and in the ED while patient was still in triage and visible to me for an extended period of time. No significant derangement on CBC, hepatic panel, lipase. screen is negative. BMP does show hypokalemia which is not atypical for the patient. Oral repletion initiated here in the ED. Given the frequency of CT scans patient has received with no clear source I do not feel CT imaging was appropriate today and this young patient. Upon reevaluation patient is continuing to request medications for pain. IV Toradol administered at that time. Upon reevaluation after Toradol patient is shows no significant improvement. Patient subsequently treated with IM Haldol. This did completely resolve the nausea however she is continuing to complain of abdominal pain though she does seem to have improved pain. Due to her continued pain and hypokalemia patient be admitted for continued evaluation and management. Diagnoses as of 03/15/25 0633 Abdominal pain, generalized Nausea Hypokalemia Medications potassium chloride (Klor-Con) packet 40 mEq (40 mEq Oral Not Given 03/15/25 0409) sodium chloride 0.9 % bolus 1,000 mL ( IntraVENous Rate/Dose Verify 03/15/25 0531) ketamine 24.5 mg in sodium chloride 0.9 % 50 mL ivpb (0 mg IntraVENous Stopped 03/15/25 0407) ondansetron (Zofran) injection 4 mg (4 mg IntraVENous Given 03/15/25 0240) ketorolac (Toradol) injection 30 mg (30 mg IntraVENous Given 03/15/25 0403) haloperidol lactate (Haldol) injection 2 mg (2 mg IntraMUSCular Given 03/15/25 0526) aluminum & magnesium hydroxide-simethicone (Mylanta) 200-200-20 MG/5ML oral suspension 20 mL (20 mL Oral Given 03/15/25 0527) famotidine (Pepcid) 20 mg in sodium chloride (PF) 0.9 % 10 mL injection (20 mg IntraVENous Given 03/15/25 0522) REVAL: CRITICAL CARE TIME None CONSULTS: None PROCEDURES: Unless otherwise noted below, none Procedures Patients symptoms are consistent with sepsis, severe sepsis, or septic shock (If yes use .sepsiscoremeasure): Now FINAL IMPRESSION 1. Abdominal pain, generalized 2. Nausea 3. Hypokalemia DISPOSITION Admit 03/15/2025 06:30:57 AM PATIENT REFERRED TO: No follow-up provider specified. DISCHARGE MEDICATIONS: New Prescriptions No medications on file (Comment: Please note this report has been produced using speech recognition software and may contain errors related to that system including errors in grammar, punctuation, and spelling, as well as words and phrases that may be inappropriate. If there are any questions or concerns please feel free to contact the dictating provider for clarification.) Heriberto Rowley MD (electronically signed) Emergency Medicine Provider [1] Past Medical History: Diagnosis Date Anxiety Cancer (CMS/HCC) (HCC) s/p TIARRA 12/2020 with cervix removed and salpingectomy Depression Intraoperative ureteral injury Migraine PCOS (polycystic ovarian syndrome) [2] Past Surgical History: Procedure Laterality Date CHOLECYSTECTOMY COLONOSCOPY 02/28/2021 CYSTOSCOPY 12/26/2020 C and P CYSTOSCOPY Left 07/28/2021 Cystoscopy, pyelograms, left antegrade nephrostogram, left nephrostomy tube removal, left ureteral stent exchange (6fr 26cm) DILATION AND CURETTAGE OF UTERUS 11/08/2020 HYSTEROSCOPY 11/08/2020 OTHER SURGICAL HISTORY Left 07/28/2021 Stent exchange OTHER SURGICAL HISTORY 09/09/2021 Robotic assisted laparoscopic left ureteroureterotomy, ureterotomy with insertion of antegrade stent SALPINGECTOMY Bilateral 12/18/2020 Dr. Escobedo TOTAL ABDOMINAL HYSTERECTOMY 12/18/[address] Escobedo URETERAL STENT PLACEMENT Left 02/12/2021 [3] Family History Problem Relation Name Age of Onset High Blood Pressure Mother Cancer Mother's Sister ovarian Diabetes Mother Breast cancer Mother's Sister Breast cancer Maternal Grandmother Colon cancer Mother's Sister [4] Social History Socioeconomic History Marital status: Single Tobacco Use Smoking status: Never Smokeless tobacco: Never Substance and Sexual Activity Alcohol use: Not Currently Drug use: Yes Types: Marijuana Comment: quit 3 mos ago Social Drivers of Health Food Insecurity: No Food Insecurity (12/05/2024) Received from [facility] Hunger Vital Sign Worried About Running Out of Food in the Last Year: Never true Ran Out of Food in the Last Year: Never true Transportation Needs: Unmet Transportation Needs (12/05/2024) Received from [facility] PRAPARE - Transportation Lack of Transportation (Medical): No Lack of Transportation (Non-Medical): Yes Intimate Partner Violence: Not At Risk (09/17/2024) Humiliation, Afraid, Rape, and Kick questionnaire Fear of Current or Ex-Partner: No Emotionally Abused: No Physically Abused: No Sexually Abused: No Housing Stability: Unknown (12/05/2024) Received from [facility] Housing Stability Vital Sign Unable to Pay for Housing in the Last Year: No Homeless in the Last Year: No Heriberto Rowley MD 03/15/25 0633 [facility] 03-12-2025 Hospital Discharge instructions Patient Education 03/12/2025 16:20:40 Vomiting (Adult) Vomiting (Adult) Vomiting is a common symptom that may be due to different causes. These include gastroenteritis (stomach flu), food poisoning and gastritis. There are other more serious causes of vomiting which may be hard to diagnose early in the illness. Therefore, it is important to watch for the warning signs listed below. The main danger from repeated vomiting is dehydration. This is due to excess loss of water and minerals from the body. When this occurs, your body fluids must be replaced. Home care If symptoms are severe, rest at home for the next 24 hours. Because your symptoms may be from an infection, wash your hands often and well. If soap and water are not available, use alcohol-based boat engines installer to keep from spreading the infection to others. Wash your hands for at least 20 seconds. Humming the happy birthday song twice while you wash is an easy way to make sure you've washed for 20 seconds. Wash your hands after using the toilet, before and after preparing food, before eating food, after changing a diaper, cleaning a wound, caring for a sick person, and blowing your nose, coughing, or sneezing. You should also wash your hands after caring for someone who is sick, touching pet food, or treats, and touching an animal, or animal waste. You may use acetaminophen or NSAID medicines like ibuprofen or naproxen to control fever, unless another medicine was prescribed. If you have chronic liver or kidney disease or ever had a stomach ulcer or gastrointestinal bleeding, talk with your doctor before using these medicines. Aspirin should never be used in anyone under 18 years of age who is ill with a fever. It may cause severe liver damage. Don't use NSAID medicines if you are already taking one for another condition (like arthritis) or are on aspirin (such as for heart disease, or after a stroke) Don't use tobacco and or drink alcohol, which may worsen your symptoms. If medicines for vomiting were prescribed, take as directed. Once vomiting stops, then follow these guidelines: During the first 12 to 24 hours follow the diet below: Fruit juices. Apple, grape juice, clear fruit drinks, and electrolyte replacement drinks. Beverages. Soft drinks without caffeine; mineral water (plain or flavored), decaffeinated tea and coffee. Soups. Clear broth and bouillon Desserts. Plain gelatin, ice pops, and fruit juice bars. As you feel better, you may add 6 to 8 ounces of yogurt per day. During the next 24 hours you may add the following to the above: Hot cereal, plain toast, bread, rolls, crackers Plain noodles, rice, mashed potatoes, chicken noodle or rice soup Unsweetened canned fruit such as applesauce, bananas (avoid pineapple and citrus) Limit caffeine and chocolate. No spices or seasonings except salt. During the next 24 hours: Gradually resume a normal diet, as you feel better and your symptoms lessen. Follow-up care Follow up with your healthcare provider, or as advised. When to seek medical advice Call your healthcare provider right away if any of these occur: Constant right-sided lower belly pain or increasing general belly pain Continued vomiting (unable to keep liquids down) for 24 hours Vomiting blood or coffee grounds Swollen belly Frequent diarrhea (more than 5 times a day); blood (red or black color) or mucus in diarrhea Reduced urine output or extreme thirst Weakness, dizziness or fainting Unusually drowsy or confused Fever of 100.4 F (38 C) oral or higher, or as directed Yellow color of the eyes or skin [id number] [employer]. [address] [place] [address]. All rights reserved. This information is not intended as a substitute for professional medical care. Always follow your healthcare professional's instructions. Follow Up Care 03/12/2025 13:23:28 With:GOPAL WALSH Address: [address] [place] [phone] When:2-4 days [facility] 03-12-2025 Emergency department Discharge summary Discharge Instructions Thank you for allowing [facility] to assist you with your healthcare needs. The following is important discharge information regarding your hospital visit. Diagnosis from Today's Visit Abdominal pain Nausea and vomiting What to Do Next Instructions from Your Care Team No qualifying data available. Post Acute Orders No qualifying data available. You Need to Schedule the Following Appointments Follow Up with GOPAL WALSH When:Within 2-4 days Where:[address] [place] [phone] Allergies Lactated Ringers hives Phenergan vomiting Rocephin itching Medications Please ask your primary doctor or pharmacist before taking any other medication not listed, including over the counter drugs, herbal medications, vitamins and or supplements as they may interact with your home medications. What How Much When Why Instructions Last Dose New potassium chloride (potassium chloride 10 mEq oral capsule, extended release) 1 cap by mouth Two (2) times a day take with food. Printed Prescription Unchanged acetaminophen-hydrocodone (Connell 325- 5 mg oral tablet) 1 tab(s) by mouth Every 6 hours as needed for for pain Abdominal pain in female Duration: 3 Days Unchanged diclofenac topical (diclofenac 1% topical gel) 1 application Topical Four (4) times a day Unchanged dicyclomine (Bentyl use dicyclomine ) 20 Milligram by mouth Four (4) times a day Duration: 7 Days Unchanged dicyclomine (dicyclomine 10 mg oral capsule) 1 cap by mouth Four (4) times a day Duration: 10 Days Unchanged dicyclomine (dicyclomine 20 mg oral tablet) 1 tab(s) by mouth Four (4) times a day as needed for As needed for abdominal discomfort Duration: 3 Days Unchanged gabapentin (gabapentin 600 mg oral tablet) 1 tab(s) by mouth Three (3) times a day Unchanged mirtazapine (mirtazapine 15 mg oral tablet, disintegrating) 1 tab(s) by mouth Daily at bedtime Unchanged ondansetron (ondansetron 4 mg oral tablet, disintegrating) 1 tab(s) by mouth Every 6 hours as needed for Nausea/Vomiting Unchanged ondansetron (Zofran ODT use ondansetron oral tablet, disintegrating ) 4 Milligram by mouth Every 8 hours Abdominal pain Duration: 7 Days Unchanged pantoprazole (pantoprazole 40 mg oral enteric coated tablet) 1 tab(s) by mouth Once a day Unchanged tamsulosin (tamsulosin 0.4 mg oral capsule) 1 cap by mouth Once a day Please take this list to your next doctor s visit. Bring all medications you take, including over the counter medications, herbals and other supplements with you to your doctor s visit. Patients and families are reminded to discard old lists and to update any records with all medication providers or retail pharmacies. Medication Leaflets potassium chloride (oral/injection) (marty MAYFIELD ee um LEE lorne) Timmy Potassium 99, Klor-Mino, Pokotristonza, Potassium Chloride Proamp What is the most important information I should know about potassium chloride? You should not use this medicine if you have high levels of potassium in your blood (hyperkalemia) or if you also take a potassium-sparing diuretic such as amiloride, eplerenone, spironolactone, or triamterene. What is potassium chloride? Potassium chloride is used in people to treat or prevent low blood levels of potassium (hypokalemia). Potassium levels can be low as a result of a diet, disease, taking certain medicines, or after a prolonged illness with diarrhea or vomiting. Potassium chloride may also be used for purposes not listed in this medication guide. What should I discuss with my healthcare provider before using potassium chloride? You should not use potassium chloride if you are allergic to it, or if you have: high blood levels of potassium (hyperkalemia); or if you take a potassium-sparing diuretic such as amiloride, eplerenone, spironolactone, or triamterene. Tell your doctor if you have or have ever had: heart problems such as congestive heart failure or 'AV block'; a large tissue injury such as a severe burn; an electrolyte imbalance (such as low levels of sodium or high levels of chloride in your blood); too much acid in your body (acidosis); trouble swallowing; stomach disorder; bleeding, ulcer, obstruction, or perforation (a hole or tear) in your stomach or intestines; severe dehydration; cirrhosis or other liver disease; or kidney disease. Ask a doctor before using this medicine if you are or . Do not give this medicine to a child without medical advice. Some forms of potassium chloride are not approved for use by anyone younger than 18 years old. How should I use potassium chloride? Follow all directions on your prescription label and read all medication guides or instruction sheets. Your doctor may occasionally change your dose. Use the medicine exactly as directed. Your dose needs may change if you switch to a different brand, strength, or form of this medicine. Avoid medication errors by using exactly as directed on the label, or as prescribed by your doctor. Potassium chloride oral is taken by mouth. Potassium chloride injection is given as an infusion into a vein. A healthcare provider will give you this injection when you have severely low potassium levels or if you are unable to take medicine by mouth. Tell your medical caregivers if you feel any burning or pain when potassium chloride injection is injected. Take oral potassium chloride with food if the medicine upsets your stomach. Take the tablet or capsule with a full glass of water or other liquid. Do not take the medicine on an empty stomach. Swallow the extended-release tablet or capsule whole and do not crush, chew, break, or suck on it. If you are unable to swallow a tablet or capsule whole, read and carefully follow the instructions provided to you on how to prepare and take this medicine. Ask a doctor or pharmacist if you do not understand these instructions. Measure liquid medicine with the supplied measuring device (not a kitchen spoon). Mix the oral solution, powder, or granules with least 4 ounces of cold water before taking it. Doses are based on weight in children and teenagers. Your child's dose may change if the child gains or loses weight. You may need to follow a special diet. Follow all instructions of your doctor or dietitian. Learn about the foods you should eat or avoid. You may need frequent medical tests, even if you have no symptoms. Your heart function may need to be checked using an electrocardiograph or ECG (sometimes called an EKG). Part of an extended-release tablet shell may appear in your stool, but this will not make the medicine less effective. Store at room temperature away from moisture, heat, and light. Keep the liquid medicine bottle tightly closed and away from light when not in use. What happens if I miss a dose? Take the medicine as soon as you can, but skip the missed dose if it is almost time for your next dose. Do not take two doses at one time. What happens if I overdose? Seek emergency medical attention or call the Poison Help line at . What should I avoid while using potassium chloride? Do not take potassium supplements, use salt substitutes, or other products that contain potassium unless your doctor has told you to. What are the possible side effects of potassium chloride? Get emergency medical help if you have signs of an allergic reaction: hives, difficult breathing, swelling of your face, lips, tongue, or throat. Some side effects may occur during the injection. Tell your medical caregiver if you feel dizzy, nauseated, light-headed, itchy, sweaty, or have a headache, chest tightness, back pain, trouble breathing, or swelling in your face. Call your doctor at once if you have: chest pain, trouble breathing; skin rash; headache, nausea, tiredness, seizure; severe vomiting, stomach pain or irritation, bloating; high blood potassium--nausea, weakness, tingly feeling, chest pain, irregular heartbeats, loss of movement; signs of an electrolyte imbalance--increased thirst or urination, constipation, muscle weakness, leg cramps, numbness or tingling, feeling jittery, fluttering in your chest; fluid retention--shortness of breath (even while lying down), swelling, rapid weight gain (especially in your face and midsection); or signs of stomach bleeding--bloody or tarry stools, coughing up blood or vomit that looks like coffee grounds. Common side effects may include: nausea, vomiting, diarrhea; or gas, stomach pain or discomfort. This is not a complete list of side effects and others may occur. Call your doctor for medical advice about side effects. You may report side effects to FDA at 6-281-SSJ-0391. What other drugs will affect potassium chloride? Tell your doctor about all your other medicines, especially: medicine to prevent organ transplant rejection; anticonvulsants (antiepileptics); a diuretic or 'water pill'; heart or blood pressure medication; or NSAIDs (nonsteroidal anti-inflammatory drugs)--aspirin, ibuprofen (Advil, Motrin), naproxen (Aleve), celecoxib, diclofenac, indomethacin, meloxicam, and others. This list is not complete. Other drugs may affect potassium chloride, including prescription and enfb-hhc-mloeknc medicines, vitamins, and herbal products. Not all possible drug interactions are listed here. Where can I get more information? Your doctor or pharmacist can provide more information about potassium chloride. Remember, keep this and all other medicines out of the reach of children, never share your medicines with others, and use this medication only for the indication prescribed. Every effort has been made to ensure that the information provided by [employer]. ('[employer]') is accurate, up-to-date, and complete, but no guarantee is made to that effect. Drug information contained herein may be time sensitive. [employer] information has been compiled for use by healthcare practitioners and consumers in the [place] and therefore [employer] does not warrant that uses outside of the [place] are appropriate, unless specifically indicated otherwise. [employer]'s drug information does not endorse drugs, diagnose patients or recommend therapy. [facility] drug information is an informational resource designed to assist licensed healthcare practitioners in caring for their patients and/or to serve consumers viewing this service as a supplement to, and not a substitute for, the expertise, skill, knowledge and judgment of healthcare practitioners. The absence of a warning for a given drug or drug combination in no way should be construed to indicate that the drug or drug combination is safe, effective or appropriate for any given patient. [employer] does not assume any responsibility for any aspect of healthcare administered with the aid of information [employer] provides. The information contained herein is not intended to cover all possible uses, directions, precautions, warnings, drug interactions, allergic reactions, or adverse effects. If you have questions about the drugs you are taking, check with your doctor, nurse or pharmacist. Copyright 7584-6626 [employer]. Version: 17.. Revision Date: 02/06/2025. Education Materials Vomiting (Adult) Vomiting is a common symptom that may be due to different causes. These include gastroenteritis (stomach flu), food poisoning and gastritis. There are other more serious causes of vomiting which may be hard to diagnose early in the illness. Therefore, it is important to watch for the warning signs listed below. The main danger from repeated vomiting is dehydration. This is due to excess loss of water and minerals from the body. When this occurs, your body fluids must be replaced. Home care If symptoms are severe, rest at home for the next 24 hours. Because your symptoms may be from an infection, wash your hands often and well. If soap and water are not available, use alcohol-based boat engines installer to keep from spreading the infection to others. Wash your hands for at least 20 seconds. Humming the happy birthday song twice while you wash is an easy way to make sure you've washed for 20 seconds. Wash your hands after using the toilet, before and after preparing food, before eating food, after changing a diaper, cleaning a wound, caring for a sick person, and blowing your nose, coughing, or sneezing. You should also wash your hands after caring for someone who is sick, touching pet food, or treats, and touching an animal, or animal waste. You may use acetaminophen or NSAID medicines like ibuprofen or naproxen to control fever, unless another medicine was prescribed. If you have chronic liver or kidney disease or ever had a stomach ulcer or gastrointestinal bleeding, talk with your doctor before using these medicines. Aspirin should never be used in anyone under 18 years of age who is ill with a fever. It may cause severe liver damage. Don't use NSAID medicines if you are already taking one for another condition (like arthritis) or are on aspirin (such as for heart disease, or after a stroke) Don't use tobacco and or drink alcohol, which may worsen your symptoms. If medicines for vomiting were prescribed, take as directed. Once vomiting stops, then follow these guidelines: During the first 12 to 24 hours follow the diet below: Fruit juices. Apple, grape juice, clear fruit drinks, and electrolyte replacement drinks. Beverages. Soft drinks without caffeine; mineral water (plain or flavored), decaffeinated tea and coffee. Soups. Clear broth and bouillon Desserts. Plain gelatin, ice pops, and fruit juice bars. As you feel better, you may add 6 to 8 ounces of yogurt per day. During the next 24 hours you may add the following to the above: Hot cereal, plain toast, bread, rolls, crackers Plain noodles, rice, mashed potatoes, chicken noodle or rice soup Unsweetened canned fruit such as applesauce, bananas (avoid pineapple and citrus) Limit caffeine and chocolate. No spices or seasonings except salt. During the next 24 hours: Gradually resume a normal diet, as you feel better and your symptoms lessen. Follow-up care Follow up with your healthcare provider, or as advised. When to seek medical advice Call your healthcare provider right away if any of these occur: Constant right-sided lower belly pain or increasing general belly pain Continued vomiting (unable to keep liquids down) for 24 hours Vomiting blood or coffee grounds Swollen belly Frequent diarrhea (more than 5 times a day); blood (red or black color) or mucus in diarrhea Reduced urine output or extreme thirst Weakness, dizziness or fainting Unusually drowsy or confused Fever of 100.4 F (38 C) oral or higher, or as directed Yellow color of the eyes or skin 7332-5333 [facility]. [address] [place] [address]. All rights reserved. This information is not intended as a substitute for professional medical care. Always follow your healthcare professional's instructions. Additional Information VACCINATE! IT SAVES LIVES! Members of the community who have not yet received the COVID-19 vaccine and would like to receive it can visit one of [facility] vaccine clinics. There are many vaccine clinic locations within the [facility]. For locations and available times, please visit [email or web address] [email or web address] It is important to note that some COVID mobile vaccine clinics are held outdoors and may be canceled in rainy or stormy conditions. To learn more about pediatric vaccinations (ages 5-11), we invite you to visit the [facility] webpage. [email or web address].[email or web address].org/pa ges/1369-Xqoxu-Pllhdaqexja-Freque xtzl-Bqurd-Invvyehtj.html To learn more about the COVID-19 vaccine, we invite you to visit the CDC website for a list of frequently asked questions. https://www.cdc.gov/coronavirus/2 019-ncov/vaccines/faq.html [facility] Patient Portal Access Instructions: Stay connected with your healthcare team and access your personal medical information anytime with the [facility] Patient Portal. If you would like a full copy of your medical records please contact the [facility] Medical Records Department Thursday through Thursday between 8a.m. and 4:30p.m. Please follow the directions below to access the portal: 1.Access the email account you provided upon registration to the [facility].2.Look for an invitation email from [facility].3.Open the email and access the invitation link: [facility] to [facility].Fill in the required goel to create your account. Sign into [email or web address] with your username and password that you created in the above steps to stay up to date. You can then view a summary of results, a summary of your visits, and the ability to download your summaries to your computer or send the information securely to a physician. Remember that your healthcare information is confidential, so carefully consider who you will allow to register on the [facility] Patient Portal for access to your information. You can also access the [facility] Patient Portal on the [employer]. Simply click on Health Records under Health Data and then click on the [employer] logo. HOW TO SAFELY DISPOSE OF PRESCRIPTION MEDICATIONS Please use one of the following methods to safely dispose of your unused medications. 1.Use a drug disposal kit: the drug disposal pouch allows you to safely discard your old and unused drugs. Ask your nurse to give you one when you are discharged.2.Visit a local take-back location: Many local pharmacies and police departments have programs that collect old and unwanted prescription drugs. Call your local pharmacy or go to http://bit.ly/3I8Vz8i to find one close to you.3.Make use of household items: Use cat litter or old coffee grounds to dispose medications if other options are not available. Mix your drugs with these household products, seal them in an airtight container and throw it into the garbage. Call [facility]: [phone] to be sure your drugs can be disposed of in this way. Some medicines may require a different approach.4.Never flush your medications down the toilet. IF YOU HAVE BEEN PRESCRIBED AN OPIOIDS FOR PAIN If you have been prescribed an opioid (such as hydrocodone, oxycodone or morphine), it is critical to understand the possible side effects and risks of opioid pain medications. Even when taken as directed, opioids can have several side effects including: Tolerance, meaning you might need to take more of a medication for the same pain relief. Nausea, vomiting and/or constipation. Sleepiness, dizziness, dry mouth, confusion, depression or itching. Physical dependence, meaning you have withdrawal symptoms when a medication is stopped ? this can develop within a few days. KNOW YOUR RESPONSIBILITIES It is important to know exactly how much and how often to take the opioid pain medications you are prescribed. Never take opioids in higher amounts or more often than prescribed. Do not combine opioids with alcohol or other drugs that cause drowsiness, such as benzodiazepines, also known as benzos, including diazepam and alprazolam, muscle relaxants or sleep aids. Never sell or share prescription opioids. This is illegal. Store opioids in a secure place and out of reach of others (including children, family, friends and visitors). The last page(s) of this document has been signed and retained as a CHART COPY Signatures Patient Education Materials Vomiting (Adult) Medication Leaflets potassium chloride (oral/injection) My discharge plan and instructions have been reviewed and explained to me and IBRIAN JASMINE E understand my current condition and have read and understand these discharge instructions. I have received a written copy of the plan/instructions. If I have questions, I am aware that I should contact my doctor. Patient/Watch Supervisor Signature: Date/Time: Relationship to Patient: ____ Witness Name/Signature: Date/Time: [facility] 03-12-2025 Note Exam Date Time Procedure Performing Provider Status 03/12/25 3:[address] Abd/Pelvis w/ IV Contrast Only DANIEL PAIZ MD; Auth (Verified) [id number] ORIGINAL EXAMINATION: CT OF THE ABDOMEN AND PELVIS WITH CONTRAST03/12/2025 3:[address] ABDOMEN/PELVIS WITH CONTRAST TECHNIQUE: CT of the abdomen and pelvis was performed with the administration of intravenous contrast. Multiplanar reformatted images are provided for review. Automated exposure control, iterative reconstruction, and/or weight based adjustment of the mA/kV was utilized to reduce the radiation dose to as low as reasonably achievable. COMPARISON: 12/04/2024 HISTORY: ORDERING SYSTEM PROVIDED HISTORY: Reason for Exam: Abdominal pain, acute, nonlocalized FINDINGS: Limited images of the lower thorax are noncontributory. The liver is normal. The spleen, adrenal glands, and pancreas are within normal limits. The patient is status post cholecystectomy. The kidneys are symmetric in size and excretion. The large and small bowel are normal in caliber. The appendix is normal. No free intraperitoneal fluid or air is identified. There is no lymphadenopathy. The aorta is normal in caliber. The bladder is incompletely distended without focal mass. There is no adnexal mass. There is no visible fracture or aggressive osseous lesion. IMPRESSION: No acute abnormality. Interpreted by: Daniel Amaya MD Preliminary Report By: Daniel Amaya MD Electronically signed By Daniel Amaya MD Dictated Date: 03/12/2025 3:35:47 PM Prelim Date: 03/12/2025 3:37:54 PM Sign Date: 03/12/2025 3:37:54 PM Ordering Provider: MARYANA SALDIVAR Interpreted by: Daniel Amaya MD Preliminary Report By: Daniel Amaya MD Electronically signed By Daniel Amaya MD Dictated Date: 03/12/2025 3:35:47 PM Prelim Date: 03/12/2025 3:37:54 PM Sign Date: 03/12/2025 3:37:54 PM Ordering Provider: MARYANA SALDIVAR [facility]07-06-2025 Note* Exam Date Time Procedure Performing Provider Status 03/12/25 2:04 PM EKG [ED AOH] - MARYANA ORTIZ DO; Auth (Verified) ECG Final Report Sinus rhythm RSR' in V1 or V2, right VCD or RVH Compared to ECG at 09/07/2024 16:49:06 BORDERLINE ECG Electronic Signature: MARYANA SALDIVAR DO 03/12/2025 14:09:05 [facility]07-05-2025 Hospital Discharge instructions Patient Education 03/11/2025 05:29:44 Diet for Vomiting or Diarrhea (Adult) Diet for Vomiting or Diarrhea (Adult) Your symptoms may return or get worse after eating certain foods listed below. If this happens, stop eating these foods until your symptoms ease and you feel better. Once the vomiting stops, follow the steps below. During the first 12 to 24 hours During the first 12 to 24 hours, follow this diet: Drinks. Plain water, sport drinks like electrolyte solutions, soft drinks without caffeine, mineralwater (plain or flavored), clear fruit juices, and decaffeinated tea and coffee. Soups. Clear broth. Desserts. Plain gelatin, popsicles, and fruit juice bars. As you feel better, you may add 6 to 8 ounces of yogurt per day. If you have diarrhea, don't have foods or drinks that contain sugar, high-fructose corn syrup, or sugar alcohols. During the next 24 hours During the next 24 hours you may add the following to the above: Hot cereal, plain toast, bread, rolls, and crackers Plain noodles, rice, mashed potatoes, and chicken noodle or rice soup Unsweetened canned fruit (but not pineapple) and bananas Don't eat more than 15 grams of fat a day. Do this by staying away from margarine, butter, oils, mayonnaise, sauces, gravies, fried foods, peanut butter, meat, poultry, and fish. Don't eat much fiber. Stay away from raw or cooked vegetables, fresh fruits (except bananas), and bran cereals. Limit how much caffeine and chocolate you have. Do not use any spices or seasonings except salt. During the next 24 hours Slowly go back to your normal diet, as you feel better and your symptoms ease. 0413-8609 [facility]. [address] [place] [address]. All rights reserved. This information is not intended as a substitute for professional medical care. Always follow yourhealthcare professional's instructions. 03/11/2025 05:29:41 Chronic Pain Chronic Pain Pain serves an important role. It lets you know something is wrong that needs your attention. When the body heals, pain normally goes away. When pain lasts longer than 6 months, it is called chronic pain. This is pain that is present even after the body has healed. Chronic pain can cause mood problems and get in the way of your relationships and your daily life. A number of conditions can cause chronic pain. Some of the more common include: Previous surgery An old injury Infection Diseases such as diabetes Nerve damage Back injury Arthritis Migraine or other headaches Fibromyalgia Cancer Depression and stress can make chronic pain symptoms worse. In some cases, a cause for the pain can't be found. Treatment Treatment can greatly reduce pain. In many cases, pain can become less severe, occur less often, and interfere less with your daily life. Chronic pain is often treated with a combination of medicines, therapies, and lifestyle changes. You will work closely with your healthcare provider to find a treatment plan that works best for you. Ask your healthcare provider for a referral to a pain management specialty center. These can provide the most recent and proven pain management strategies, along with emotional support and comprehensive services. Several different types of medicines may be prescribed for chronic pain. Work with your healthcare provider to develop a medicine plan that helps manage your pain. Physical therapy can help reduce certain types of chronic pain. Occupational therapy teaches you how to do routine tasks of daily living in ways that lessen your discomfort. Counseling can help you cope better with stress and pain. Other therapies such as meditation, yoga, biofeedback, massage, and acupuncture can also help manage chronic pain. Changing certain habits can help reduce chronic pain. They include: oEating healthy oDeveloping an exercise routine oGetting enough sleep oStopping smoking and limiting alcohol use oLosing excess weight Follow-up care Follow up with your healthcare provider, or as advised. Let your healthcare provider know if your current treatment plan is working or if changes are needed. Resources For more information, contact: [place] [employer], ahma.memberMRI Interventions.FitnessKeeper or 439-903-3602 [place] [employer], theacpa.org or 585-769-4631 1999-[address] [employer] [place] [address], [place] [address]. All rights reserved. This information is not intended as a substitute for professional medical care. Always follow yourhealthcare professional's instructions. Follow Up Care 03/11/2025 04:25:38 With:Go to emergency room if symptoms worsen Address:Unknown When:2-4 days With:GOPAL WALSH Address: [address] [place] [id number] [phone] When:2-4 days [facility] 07-05-2025 Emergency department Discharge summary Discharge Instructions Thank you for allowing [facility] to assist you with your healthcare needs. The following is importantdischarge information regarding your hospital visit. Diagnosis from Today's Visit Abdominal pain in female Vomiting What to Do Next Instructions from Your Care Team Please stick to a clear liquid diet and slowly advance as tolerated with crackers or noodles or other planned solids. Take Zofran at home as needed for nausea. You are also prescribed Bentyl yesterday. Will prescribe you very short course of pain medication as well for your acute on chronic abdominal pain symptoms. But you must follow-up with your outpatient providers for further management of your abdominal pain symptoms. Return the emergency department for intractable nausea or vomiting or other acute emergent concerns. No qualifying data available. Post Acute Orders No qualifying data available. You Need to Schedule the Following Appointments Follow Up with Go to emergency room if symptoms worsen When:Within 2-4 days Follow Up with GOPAL WALSH When:Within 2-4 days Where:[address] [place] [phone] Allergies Lactated Ringers hives Phenergan vomiting Rocephin itching Medications Please ask your primary doctor or pharmacist before taking any other medication not listed, including over the counter drugs, herbal medications, vitamins and or supplements as they may interact withyour home medications. What How Much When Why Instructions Last Dose New acetaminophen-hydrocodone (Connell 325- 5 mg oral tablet) 1 tab(s) by mouth Every 6 hours as needed for for pain Abdominal pain in female Duration: 3 Days Printed Prescription Changed ondansetron (ondansetron 4 mg oral tablet, disintegrating) 1 tab(s) by mouth Every 6 hours as needed for Nausea/Vomiting Printed Prescription Changed ondansetron (Zofran ODT use ondansetron oral tablet, disintegrating ) 4 Milligram by mouth Every 8 hours Abdominal pain Duration: 7 Days Unchanged diclofenac topical (diclofenac 1% topical gel) 1 application Topical Four (4) times a day Unchanged dicyclomine (Bentyl use dicyclomine ) 20 Milligram by mouth Four (4) times a day Duration: 7 Days Unchanged dicyclomine (dicyclomine 10 mg oral capsule) 1 cap by mouth Four (4) times a day Duration: 10 Days Unchanged dicyclomine (dicyclomine 20 mg oral tablet) 1 tab(s) by mouth Four (4) times a day as needed for As needed for abdominal discomfort Duration: 3 Days Unchanged gabapentin (gabapentin 600 mg oral tablet) 1 tab(s) by mouth Three (3) times a day Unchanged mirtazapine (mirtazapine 15 mg oral tablet, disintegrating) 1 tab(s) by mouth Daily at bedtime Unchanged pantoprazole (pantoprazole 40 mg oral enteric coated tablet) 1 tab(s) by mouth Once a day Unchanged tamsulosin (tamsulosin 0.4 mg oral capsule) 1 cap by mouth Once a day Please take this list to your next doctor s visit. Bring all medications you take, including over the counter medications, herbals and other supplements with you to your doctor s visit. Patients and families are reminded to discard old lists and to update any records with all medication providers or retail pharmacies. Medication Leaflets acetaminophen and hydrocodone (a SEET a MIN hernandez fen and nona [place]O done) Verdrocet What is the most important information I should know about acetaminophen and hydrocodone? MISUSE OF OPIOID MEDICINE CAN CAUSE ADDICTION, OVERDOSE, OR . Keep the medication in a place where others cannot get to it. Taking opioid medicine during may cause life-threatening withdrawal symptoms in the . Fatal side effects can occur if you use opioid medicine with alcohol, or with other drugs that cause drowsiness or slow your breathing. Stop taking this medicine and call your doctor right away if you have skin redness or a rash that spreads and causes blistering and peeling. What is acetaminophen and hydrocodone? Acetaminophen and hydrocodone is a combination medicine used to relieve moderate to severe pain. Acetaminophen and hydrocodone contains an opioid medicine, and may be habit-forming. Acetaminophen and hydrocodone may also be used for purposes not listed in this medication guide. What should I discuss with my healthcare provider before taking acetaminophen and hydrocodone? You should not use this medicine if you are allergic to acetaminophen or hydrocodone, or if you have: severe asthma or breathing problems; or a blockage in your stomach or intestines. Tell your doctor if you have ever had: breathing problems, sleep apnea (breathing stops during sleep); liver disease; a drug or alcohol addiction; kidney disease; a head injury or seizures; urination problems; or problems with your thyroid, pancreas, or gallbladder. If you use opioid medicine while you are , your baby could become dependent on the drug. This can cause life-threatening withdrawal symptoms in the baby after it is born. Babies born dependent on opioids may need medical treatment for several weeks. Ask a doctor before using opioid medicine if you are . Tell your doctor if you notice severe drowsiness or slow breathing in the nursing baby. How should I take acetaminophen and hydrocodone? Follow all directions on your prescription label. Never take this medicine in larger amounts, or for longer than prescribed. An overdose can damage your liver or cause . Tell your doctor if you feel an increased urge to use more of this medicine. Never share this medicine with another person, especially someone with a history of drug abuse or addiction. MISUSE CAN CAUSE ADDICTION, OVERDOSE, OR . Keep the medicine in a place where others cannot get to it. Selling or giving away this medicine is against the law. Measure liquid medicine carefully. Use the dosing syringe provided, or use a medicine dose-measuring device (not a kitchen spoon). If you need surgery or medical tests, tell the doctor ahead of time that you are using this medicine. You should not stop using this medicine suddenly. Follow your doctor's instructions about tapering your dose. Store at room temperature away from moisture and heat. Keep track of your medicine. You should be aware if anyone is using it improperly or without a prescription. Do not keep leftover opioid medication. Just one dose can cause in someone using this medicine accidentally or improperly. Ask your pharmacist where to locate a drug take-back disposal program.If there is no take-back program, flush the unused medicine down the toilet. What happens if I miss a dose? Since this medicine is used for pain, you are not likely to miss a dose. Skip any missed dose if itis almost time for your next dose. Do not use two doses at one time. What happens if I overdose? Seek emergency medical attention or call the Poison Help line at . An overdose of this medicine can be fatal, especially in a child or other person using the medicine without a prescription. Overdose symptoms may include nausea, vomiting, sweating, severe drowsiness, pinpoint pupils, slow breathing, or no breathing. Your doctor may recommend you get naloxone (a medicine to reverse an opioid overdose) and keep it with you at all times. A person caring for you can give the naloxone if you stop breathing or don't wake up. Your caregiver must still get emergency medical help and may need to perform CPR (cardiopulmonary resuscitation) on you while waiting for help to arrive. Anyone can buy naloxone from a pharmacy or local health department. Make sure any person caring foryou knows where you keep naloxone and how to use it. What should I avoid while taking acetaminophen and hydrocodone? Avoid driving or operating machinery until you know how this medicine will affect you. Dizziness ordrowsiness can cause falls, accidents, or severe injuries. Do not drink alcohol. Dangerous side effects or could occur. Ask a doctor or pharmacist before using any other medicine that may contain acetaminophen (sometimes abbreviated as APAP). Taking certain medications together can lead to a fatal overdose. What are the possible side effects of acetaminophen and hydrocodone? Get emergency medical help if you have signs of an allergic reaction: hives; difficulty breathing; swelling of your face, lips, tongue, or throat. Opioid medicine can slow or stop your breathing, and may occur. A person caring for you should give naloxone and/or seek emergency medical attention if you have slow breathing with long pauses,blue colored lips, or if you are hard to wake up. In rare cases, acetaminophen may cause a severe skin reaction that can be fatal. This could occur even if you have taken acetaminophen in the past and had no reaction. Stop taking this medicine and call your doctor right away if you have skin redness or a rash that spreads and causes blistering andpeeling. Call your doctor at once if you have: noisy breathing, sighing, shallow breathing, breathing that stops; a light-headed feeling, like you might pass out; liver problems--nausea, upper stomach pain, tiredness, loss of appetite, dark urine, bouchra-colored stools, jaundice (yellowing of the skin or eyes); low cortisol levels-- nausea, vomiting, loss of appetite, dizziness, worsening tiredness or weakness; o high levels of serotonin in the body--agitation, hallucinations, fever, sweating, shivering, fast heart rate, muscle stiffness, twitching, loss of coordination, nausea, vomiting, diarrhea. Serious breathing problems may be more likely in older adults and in those who are debilitated or have wasting syndrome or chronic breathing disorders. Common side effects include: dizziness, drowsiness, feeling tired; nausea, vomiting, stomach pain; constipation; or headache. This is not a complete list of side effects and others may occur. Call your doctor for medical advice about side effects. You may report side effects to FDA at 0-858-OJU-8954. What other drugs will affect acetaminophen and hydrocodone? You may have breathing problems or withdrawal symptoms if you start or stop taking certain other medicines. Tell your doctor if you also use an antibiotic, antifungal medication, heart or blood pressure medication, seizure medication, or medicine to treat HIV or hepatitis C. Opioid medication can interact with many other drugs and cause dangerous side effects or . Be sure your doctor knows if you also use: cold or allergy medicines, bronchodilator asthma/COPD medication, or a diuretic ('water pill'); medicines for motion sickness, irritable bowel syndrome, or overactive bladder; other opioids--opioid pain medicine or prescription cough medicine; a sedative like Valium--diazepam, alprazolam, lorazepam, Xanax, Klonopin, Versed, and others; drugs that make you sleepy or slow your breathing--a sleeping pill, muscle relaxer, medicine to treat mood disorders or mental illness; drugs that affect serotonin levels in your body--a stimulant, or medicine for depression, Parkinson's disease, migraine headaches, serious infections, or nausea and vomiting. This list is not complete. Other drugs may affect acetaminophen and hydrocodone, including prescription and sinp-ttg-pizgyaf medicines, vitamins, and herbal products. Not all possible interactions are listed here. Where can I get more information? Your doctor or pharmacist can provide more information about acetaminophen and hydrocodone. Remember, keep this and all other medicines out of the reach of children, never share your medicines with others, and use this medication only for the indication prescribed. Every effort has been made to ensure that the information provided by [employer] is accurate, up-to-date, and complete, but no guarantee is made to that effect. Drug information contained herein may be time sensitive. [employer] information has been compiled for use by healthcare practitioners and consumers in the [place] and therefore [employer] does not warrant that uses outside of the [place] are appropriate, unless specifically indicated otherwise. [employer] drug information does not endorse drugs, diagnose patients or recommend therapy. [employer] drug information isan informational resource designed to assist licensed healthcare practitioners in caring for their p atients and/or to serve consumers viewing this service as a supplement to, and not a substitute for, the expertise, skill, knowledge and judgment of healthcare practitioners. The absence of a warningfor a given drug or drug combination in no way should be construed to indicate that the drug or drug combination is safe, effective or appropriate for any given patient. [employer] does not assume any responsibility for any aspect of healthcare administered with the aid of information [employer] provides. The information contained herein is not intended to cover all possible uses, directions, precautions, warnings, drug interactions, allergic reactions, or adverse effects. If you have questions about the drugs you are taking, check with your doctor, nurse or pharmacist. Copyright 4628-7250 [employer]. Version: 19.02. Revision Date: 12/15/2023. ondansetron (oral) (on FELTON se mony) What is the most important information I should know about ondansetron? Tell your doctor about all your other medicines. Some drugs should not be used with ondansetron. What is ondansetron? Ondansetron is used to prevent nausea and vomiting that may happen with certain cancer medicines (chemotherapy), or after surgery, or radiation treatment . Ondansetron may be used for purposes not listed in this medication guide. What should I discuss with my health care provider before taking ondansetron? You should not use ondansetron if you are allergic to it or similar medicines (dolasetron, granisetron, palonosetron). Some drugs should not be used with ondansetron. Your treatment plan may change if you also use apomorphine. Tell your doctor if you have or have ever had: an electrolyte imbalance (such as low blood levels of potassium or magnesium); congestive heart failure, slow heartbeats; heart rhythm disorder such as long QT syndrome (in you or a family member); an obstruction in the stomach or intestines, a change in bowel habits; a surgery on your stomach or intestines; or severe liver disease. The orally disintegrating tablet may contain phenylalanine and could be harmful if you have phenylketonuria (PKU). Tell your doctor if you also use stimulant medicine, opioid medicine, herbal products, or medicine for depression, mental illness, Parkinson's disease, migraine headaches, serious infections, or prevention of nausea and vomiting. An interaction with ondansetron could cause a serious condition called serotonin syndrome. Tell your doctor if you are or . Ondansetron is not approved for use by anyone younger than 4 years old. How should I take ondansetron? Follow all directions on your prescription label and read all medication guides or instruction sheets. Use the medicine exactly as directed. Ondansetron is usually taken just before surgery, chemotherapy, or radiation treatment. Follow yourdoctor's dosing instructions very carefully. Measure liquid medicine with the supplied measuring device (not a kitchen spoon). To take the orally disintegrating tablet: Keep the tablet in its blister pack until you are ready to take it. Open the package and peel back the foil. Use dry hands to remove the orally disintegrating tablet and place it in your mouth. Do not push a tablet through the foil or you may damage the tablet. Allow the orally disintegrating tablet to dissolve in your mouth without chewing. Do not swallow whole. Store in the original container at room temperature away from moisture, heat, and light. Store liquid medicine in an upright position. What happens if I miss a dose? Ondansetron is used when needed. If you are on a dosing schedule, skip any missed dose. Do not use two doses at one time. What happens if I overdose? Seek emergency medical attention or call the Poison Help line at . What should I avoid while taking ondansetron? Follow your doctor's instructions about any restrictions on food, beverages, or activity. What are the possible side effects of ondansetron? Get emergency medical help if you have signs of an allergic reaction: hives, difficult breathing, swelling of your face, lips, tongue, or throat. Seek medical attention right away if you have symptoms of serotonin syndrome such as: agitation, hallucinations, fever, sweating, shivering, fast heart rate, muscle stiffness, twitching, loss of coordination, nausea, vomiting, or diarrhea. Seek emergency medical help if you have signs of a heart attack: chest pain that spreads to your jaw or shoulder, nausea, and sweating. Call your doctor at once if you have: severe stomach pain, bloating, constipation, or any change in bowel habits; or dizziness, feeling lightheaded, fainting, slow, fast, or uneven heartbeats. Common side effects may include: diarrhea or constipation; headache; shortness of breath, rapid breathing, fast heartbeats; or feeling unwell, tiredness. This is not a complete list of side effects and others may occur. Call your doctor for medical advice about side effects. You may report side effects to FDA at 4-390-ZMM-0550. What other drugs will affect ondansetron? Ondansetron can cause a serious heart problem. Your risk may be higher if you also use certain other medicines for infections, asthma, heart problems, high blood pressure, depression, mental illness,cancer, malaria, or HIV. Many drugs can affect ondansetron. This includes prescription and jyuh-hyy-qfxmmay medicines, vitamins, and herbal products. Not all possible interactions are listed here. Tell your doctor about all other medicines you use. Where can I get more information? Your doctor or pharmacist can provide more information about ondansetron. Remember, keep this and all other medicines out of the reach of children, never share your medicines with others, and use this medication only for the indication prescribed. Every effort has been made to ensure that the information provided by [employer] ('[employer]') is accurate, up-to-date, and complete, but no guarantee is made to that effect. Drug information contained herein may be time sensitive. [employer] information has been compiled for use by healthcare practitioners and consumers in the [place] and therefore [employer] does not warrant that uses outside of the [place] are appropriate, unless specifically indicated otherwise. [employer] drug information does not endorse drugs, diagnose patients or recommend therapy. [employer]'s drug information isan informational resource designed to assist licensed healthcare practitioners in caring for their p atients and/or to serve consumers viewing this service as a supplement to, and not a substitute for, the expertise, skill, knowledge and judgment of healthcare practitioners. The absence of a warningfor a given drug or drug combination in no way should be construed to indicate that the drug or drug combination is safe, effective or appropriate for any given patient. [facility] does not assume any responsibility for any aspect of healthcare administered with the aid of information [facility] provides. The information contained herein is not intended to cover all possible uses, directions, precautions, warnings, drug interactions, allergic reactions, or adverse effects. If you have questions about the drugs you are taking, check with your doctor, nurse or pharmacist. Copyright 8079-7902 [facility]. Version: 17.. Revision Date: 05/31/2024. Education Materials Diet for Vomiting or Diarrhea (Adult) Your symptoms may return or get worse after eating certain foods listed below. If this happens, stop eating these foods until your symptoms ease and you feel better. Once the vomiting stops, follow the steps below. During the first 12 to 24 hours During the first 12 to 24 hours, follow this diet: Drinks. Plain water, sport drinks like electrolyte solutions, soft drinks without caffeine, mineralwater (plain or flavored), clear fruit juices, and decaffeinated tea and coffee. Soups. Clear broth. Desserts. Plain gelatin, popsicles, and fruit juice bars. As you feel better, you may add 6 to 8 ounces of yogurt per day. If you have diarrhea, don't have foods or drinks that contain sugar, high-fructose corn syrup, or sugar alcohols. During the next 24 hours During the next 24 hours you may add the following to the above: Hot cereal, plain toast, bread, rolls, and crackers Plain noodles, rice, mashed potatoes, and chicken noodle or rice soup Unsweetened canned fruit (but not pineapple) and bananas Don't eat more than 15 grams of fat a day. Do this by staying away from margarine, butter, oils, mayonnaise, sauces, gravies, fried foods, peanut butter, meat, poultry, and fish. Don't eat much fiber. Stay away from raw or cooked vegetables, fresh fruits (except bananas), and bran cereals. Limit how much caffeine and chocolate you have. Do not use any spices or seasonings except salt. During the next 24 hours Slowly go back to your normal diet, as you feel better and your symptoms ease. [id number] [employer]. [address] [place] [address]. All rights reserved. This information is not intended as a substitute for professional medical care. Always follow yourhealthcare professional's instructions. Chronic Pain Pain serves an important role. It lets you know something is wrong that needs your attention. When the body heals, pain normally goes away. When pain lasts longer than 6 months, it is called chronic pain. This is pain that is present even after the body has healed. Chronic pain can cause mood problems and get in the way of your relationships and your daily life. A number of conditions can cause chronic pain. Some of the more common include: Previous surgery An old injury Infection Diseases such as diabetes Nerve damage Back injury Arthritis Migraine or other headaches Fibromyalgia Cancer Depression and stress can make chronic pain symptoms worse. In some cases, a cause for the pain can't be found. Treatment Treatment can greatly reduce pain. In many cases, pain can become less severe, occur less often, and interfere less with your daily life. Chronic pain is often treated with a combination of medicines, therapies, and lifestyle changes. You will work closely with your healthcare provider to find a treatment plan that works best for you. Ask your healthcare provider for a referral to a pain management specialty center. These can provide the most recent and proven pain management strategies, along with emotional support and comprehensive services. Several different types of medicines may be prescribed for chronic pain. Work with your healthcare provider to develop a medicine plan that helps manage your pain. Physical therapy can help reduce certain types of chronic pain. Occupational therapy teaches you how to do routine tasks of daily living in ways that lessen your discomfort. Counseling can help you cope better with stress and pain. Other therapies such as meditation, yoga, biofeedback, massage, and acupuncture can also help manage chronic pain. Changing certain habits can help reduce chronic pain. They include: oEating healthy oDeveloping an exercise routine oGetting enough sleep oStopping smoking and limiting alcohol use oLosing excess weight Follow-up care Follow up with your healthcare provider, or as advised. Let your healthcare provider know if your current treatment plan is working or if changes are needed. Resources For more information, contact: [place] [employer], herbert.memberclicks.net or [phone] [place] [employer], theacpa.org or [phone] [employer] [place] [address], [place] [address]. All rights reserved. This information is not intended as a substitute for professional medical care. Always follow yourhealthcare professional's instructions. Additional Information VACCINATE! IT SAVES LIVES! Members of the community who have not yet received the COVID-19 vaccine and would like to receive it can visit one of [facility] vaccine clinics. There are many vaccine clinic locations within the [facility]. For locations and available times, please visit [email or web address] It is important to note that some COVID mobile vaccine clinics are held outdoors and may be canceled in rainy or stormy conditions. To learn more about pediatric vaccinations (ages 5-11), we invite you to visit the [facility] webpage. [email or web address] learn more about the COVID-19 vaccine, we invite you to visit the CDC website for a list of frequently asked questions. https://www.cdc.gov/coronavirus/2019-ncov/vaccines/faq.html [employer] Patient Portal Access Instructions: Stay connected with your healthcare team and access your personal medical information anytime with the [employer] Patient Portal. If you would like a full copy of your medical records please contact the [facility] Medical Records Department Thursday through Thursday between 8a.m. and 4:30p.m. Please follow the directions below to access the portal: 1.Access the email account you provided upon registration to the [facility].2.Look for an invitation email from [facility].3.Open the email and access the invitation link: Accept Invitation to [employer]4.Fill in the required goel to create your account. Sign into [email or web address] with your username and password that you created in the above steps to stay up to date. You can then view a summary of results, a summary of your visits, and the ability to download your summaries to your computer or send the information securely to a physician. Remember that your healthcare information is confidential, so carefully consider who you will allow to register on the [employer] Patient Portal for access to your information. You can also access the [employer] Patient Portal on the [employer] jairo. Simply click on Health Records under [employer] and then click on the [employer] logo. HOW TO SAFELY DISPOSE OF PRESCRIPTION MEDICATIONS Please use one of the following methods to safely dispose of your unused medications. 1.Use a drug disposal kit: the drug disposal pouch allows you to safely discard your old and unuseddrugs. Ask your nurse to give you one when you are discharged.2.Visit a local take-back location: Many local pharmacies and police departments have programs that collect old and unwanted prescriptiondrugs. Call your local pharmacy or go to [email or web address] [email or web address] to find one close to you.3.Make use of household items: Use cat litter or old coffee grounds to dispose medications if other options arenot available. Mix your drugs with these household products, seal them in an airtight container andthrow it into the garbage. Call [facility]: [phone] to be sure your drugs can be disposed of in this way. Some medicines may require a different approach.4.Never flush your medications down the toilet. IF YOU HAVE BEEN PRESCRIBED AN OPIOIDS FOR PAIN If you have been prescribed an opioid (such as hydrocodone, oxycodone or morphine), it is critical to understand the possible side effects and risks of opioid pain medications. Even when taken as directed, opioids can have several side effects including: Tolerance, meaning you might need to take more of a medication for the same pain relief. Nausea, vomiting and/or constipation. Sleepiness, dizziness, dry mouth, confusion, depression or itching. Physical dependence, meaning you have withdrawal symptoms when a medication is stopped ? this can develop within a few days. KNOW YOUR RESPONSIBILITIES It is important to know exactly how much and how often to take the opioid pain medications you are prescribed. Never take opioids in higher amounts or more often than prescribed. Do not combine opioids with alcohol or other drugs that cause drowsiness, such as benzodiazepines, also known as benzos,including diazepam and alprazolam, muscle relaxants or sleep aids. Never sell or share prescriptionopioids. This is illegal. Store opioids in a secure place and out of reach of others (including children, family, friends and visitors). The last page(s) of this document has been signed and retained as a CHART COPY Signatures Patient Education Materials Diet for Vomiting or Diarrhea (Adult) Chronic Pain Medication Leaflets acetaminophen and hydrocodone, ondansetron (oral) My discharge plan and instructions have been reviewed and explained to me and IBRIAN JASMINE E understand my current condition and have read and understand these discharge instructions. I have received a written copy of the plan/instructions. If I have questions, I am aware that I should contact my doctor. Patient/Watch Supervisor Signature: Date/Time: Relationship to Patient: Witness Name/Signature: Date/Time: [facility]07-04-2025 Hospital Discharge instructions Patient Education 03/10/2025 18:58:06 Vomiting (Adult) Vomiting (Adult) Vomiting is a common symptom that may be due to different causes. These include gastroenteritis (stomach flu), food poisoning and gastritis. There are other more serious causes of vomiting which may be hard to diagnose early in the illness. Therefore, it is important to watch for the warning signs listed below. The main danger from repeated vomiting is dehydration. This is due to excess loss of water and minerals from the body. When this occurs, your body fluids must be replaced. Home care If symptoms are severe, rest at home for the next 24 hours. Because your symptoms may be from an infection, wash your hands often and well. If soap and water are not available, use alcohol-based boat engines installer to keep from spreading the infection to others. Wash your hands for at least 20 seconds. Humming the happy birthday song twice while you wash is aneasy way to make sure you've washed for 20 seconds. Wash your hands after using the toilet, before and after preparing food, before eating food, after changing a diaper, cleaning a wound, caring for a sick person, and blowing your nose, coughing, or sneezing. You should also wash your hands after caring for someone who is sick, touching pet food, ortreats, and touching an animal, or animal waste. You may use acetaminophen or NSAID medicines like ibuprofen or naproxen to control fever, unless another medicine was prescribed. If you have chronic liver or kidney disease or ever had a stomach ulcer or gastrointestinal bleeding, talk with your doctor before using these medicines. Aspirin should never be used in anyone under 18 years of age who is ill with a fever. It may cause severe liver damage. Don't use NSAID medicines if you are already taking one for another condition (like arthritis) or are on aspirin (such as for heart disease, or after a stroke) Don't use tobacco and or drink alcohol, which may worsen your symptoms. If medicines for vomiting were prescribed, take as directed. Once vomiting stops, then follow these guidelines: During the first 12 to 24 hours follow the diet below: Fruit juices. Apple, grape juice, clear fruit drinks, and electrolyte replacement drinks. Beverages. Soft drinks without caffeine; mineral water (plain or flavored), decaffeinated tea and coffee. Soups. Clear broth and bouillon Desserts. Plain gelatin, ice pops, and fruit juice bars. As you feel better, you may add 6 to 8 ounces of yogurt per day. During the next 24 hours you may add the following to the above: Hot cereal, plain toast, bread, rolls, crackers Plain noodles, rice, mashed potatoes, chicken noodle or rice soup Unsweetened canned fruit such as applesauce, bananas (avoid pineapple and citrus) Limit caffeine and chocolate. No spices or seasonings except salt. During the next 24 hours: Gradually resume a normal diet, as you feel better and your symptoms lessen. Follow-up care Follow up with your healthcare provider, or as advised. When to seek medical advice Call your healthcare provider right away if any of these occur: Constant right-sided lower belly pain or increasing general belly pain Continued vomiting (unable to keep liquids down) for 24 hours Vomiting blood or coffee grounds Swollen belly Frequent diarrhea (more than 5 times a day); blood (red or black color) or mucus in diarrhea Reduced urine output or extreme thirst Weakness, dizziness or fainting Unusually drowsy or confused Fever of 100.4 F (38 C) oral or higher, or as directed Yellow color of the eyes or skin [id number] [employer]. [address] [place] [address]. All rights reserved. This information is not intended as a substitute for professional medical care. Always follow yourhealthcare professional's instructions. 03/10/2025 18:57:28 Marijuana Abuse Marijuana Abuse Marijuana is the most widely used illegal drug in the [place]. It is called by various names such as pot, weed, blunts, grass, reefer, ganja, hash, or hashish. It is usually smoked but can be mixed with foods, or brewed as a tea. It is sometimes sold with PCP (terry dust) or amphetamine mixedin it. These drugs can cause other harmful side effects. Marijuana can cause the following effects: Changes in mood (stimulated, happy, drowsy, depressed, paranoid) Hallucinations Increased heart rate and blood pressure Increased appetite Time distortion, difficulty concentrating, impaired memory Lung damage (similar to cigarettes with chronic cough, wheezing, frequent colds, and bronchitis) Decreased sperm count Dizziness, vertigo You can become psychologically dependent on marijuana. That means the craving to use the drug is emotional or psychological rather than due to physical withdrawal. Is marijuana running your life? Here are some of the signs: Relying on marijuana to feel good, forget problems, deal with stress or to relax Wanting to be alone most of the time or only with others who use drugs Losing interest in things that used to be important Changes in school or job performance or attendance Spending a lot of time thinking about how to get marijuana Stealing or selling your things so you can buy marijuana Unable to stop using even though you may want to quit Increasing anxiety, anger, or depression Sleeping too much, changes in eating habits (weight loss or gain) Needing to use more to get the same effect Home care The following suggestions will help you manage marijuana abuse: Once you have become addicted to any drug, quitting is hard to do. Most people find they can't quitwithout help. So, don t try to do this alone. Talk to someone you trust who can support you. Seek professional help. Avoid people and places where drugs are used. That only increases the temptation to use. Follow-up care Follow up with your healthcare provider, or as advised. For more information or a referral to a treatment center in your area, contact: Your local mental health center or the National Alcohol and Substance Abuse Information Center (423)-891-8199 www.addictioncareV[employer]AG Corporation.[employer] National [place] on Alcoholism and Drug Dependence 068-688-5919 www.ncadd.org Marijuana Anonymous 390-368-1699 www.marijuana-anonymous.org When to seek medical advice Call your healthcare provider right away if any of these occur: You feel extreme depression, fear, anxiety, or anger toward yourself or others. You feel out of control. You feel that you may try to harm yourself or another. You experience chest pain or shortness of breath. [phone] [employer]. [address] [place] [address]. All rights reserved. This information is not intended as a substitute for professional medical care. Always follow yourhealthcare professional's instructions. Follow Up Care 03/10/2025 15:46:30 With:GOPAL WALSH Address: [address] [place] [phone] When:2-4 days [facility] 07-04-2025 Note Discharge Instructions Thank you for allowing [facility] to assist you with your healthcare needs. The following is importantdischarge information regarding your hospital visit. Diagnosis from Today's Visit Marijuana abuse Pain, abdominal What to Do Next Instructions from Your Care Team No qualifying data available. Post Acute Orders No qualifying data available. You Need to Schedule the Following Appointments Follow Up with GOPAL WALSH When:Within 2-4 days Where:[address] [place] [phone] Allergies Lactated Ringers hives Phenergan vomiting Rocephin itching Medications Please ask your primary doctor or pharmacist before taking any other medication not listed, including over the counter drugs, herbal medications, vitamins and or supplements as they may interact withur home medications. What How Much When Why Instructions Last Dose Changed dicyclomine (Bentyl use dicyclomine ) 20 Milligram by mouth Four (4) times a day Duration: 7 Days Printed Prescription Changed dicyclomine (dicyclomine 10 mg oral capsule) 1 cap by mouth Four (4) times a day Duration: 10 Days Changed dicyclomine (dicyclomine 20 mg oral tablet) 1 tab(s) by mouth Four (4) times a day as needed for As needed for abdominal discomfort Duration: 3 Days Unchanged diclofenac topical (diclofenac 1% topical gel) 1 application Topical Four (4) times a day Unchanged gabapentin (gabapentin 600 mg oral tablet) 1 tab(s) by mouth Three (3) times a day Unchanged mirtazapine (mirtazapine 15 mg oral tablet, disintegrating) 1 tab(s) by mouth Daily at bedtime Unchanged ondansetron (Zofran ODT use ondansetron oral tablet, disintegrating ) 4 Milligram by mouth Every 8 hours Abdominal pain Duration: 7 Days Unchanged pantoprazole (pantoprazole 40 mg oral enteric coated tablet) 1 tab(s) by mouth Once a day Unchanged tamsulosin (tamsulosin 0.4 mg oral capsule) 1 cap by mouth Once a day Please take this list to your next doctor s visit. Bring all medications you take, including over the counter medications, herbals and other supplements with you to your doctor s visit. Patients and families are reminded to discard old lists and to update any records with all medication providers or retail pharmacies. Medication Leaflets dicyclomine (oral/injection) (robert shepherd) What is the most important information I should know about dicyclomine? Many drugs can affect dicyclomine. Tell your doctor about all your current medicines. What is dicyclomine? Dicyclomine is used to treat functional bowel or irritable bowel syndrome. Dicyclomine may also be used for purposes not listed in this medication guide. What should I discuss with my healthcare provider before taking dicyclomine? You should not use dicyclomine if you are allergic to it, or if you have: glaucoma; a bladder obstruction or other urination problems; a blockage in your digestive tract (stomach or intestines); severe ulcerative colitis; gastroesophageal reflux disease (GERD); a serious heart condition and active bleeding; myasthenia gravis; or if you are a baby. Not approved for use by anyone younger than 18 years old. Dicyclomine should never be given to a child younger than 6 months old. Tell your doctor if you have ever had: heart problems or high blood pressure; a stroke; ulcerative colitis; an ileostomy or colostomy; an enlarged prostate; or liver or kidney disease. Older adults may be more sensitive to the effects of this medicine. Tell your doctor if you are . Do not breastfeed. How should I take dicyclomine? Follow all directions on your prescription label and read all medication guides or instruction sheets. Your doctor may occasionally change your dose. Use the medicine exactly as directed. Dicyclomine oral is taken by mouth. Measure liquid medicine with the supplied syringe or a dose-measuring device (not a kitchen spoon). Dicyclomine injection is given in a muscle if you are unable to take the medicine by mouth. Call your doctor if your symptoms do not improve after 2 weeks. Store at room temperature away from moisture and heat. What happens if I miss a dose? Skip the missed dose and use your next dose at the regular time. Do not use two doses at one time. What happens if I overdose? Seek emergency medical attention or call the Poison Help line at . Overdose can cause nausea, vomiting, dilated pupils, weakness or loss of movement in any part of your body, trouble swallowing, fainting, or seizure (convulsions). What should I avoid while taking dicyclomine? May cause dizziness or blurred vision. Avoid driving or hazardous activity until you know how this medicine will affect you. Avoid becoming overheated or dehydrated during exercise and in hot weather. Dicyclomine can decrease sweating and you may be more prone to heat stroke. Tell your doctor if you have a fever while taking dicyclomine. Avoid using an antacid. Antacids can make it harder for your body to absorb dicyclomine oral. What are the possible side effects of dicyclomine? Get emergency medical help if you have signs of an allergic reaction: hives; difficult breathing; swelling of your face, lips, tongue, or throat. Call your doctor at once if you have: fast or slow heartbeats, pounding heartbeats or fluttering in your chest; confusion, agitation, hallucinations, unusual thoughts or behavior; problems with memory or speech; problems with balance or muscle movement; diarrhea, severe constipation, or worsening of bowel symptoms; trouble swallowing; bruising, swelling, or pain where a dicyclomine injection was given; or dehydration --dizziness, confusion, feeling very thirsty, less urination or sweating. Confusion and mood or behavior changes may be more likely in older adults. Common side effects may include: drowsiness, dizziness, weakness, nervousness; blurred vision; dry mouth; or nausea. This is not a complete list of side effects and others may occur. Call your doctor for medical advice about side effects. You may report side effects to FDA at 6-481-TOO-5387. What other drugs will affect dicyclomine? Using dicyclomine with other drugs that make you drowsy can worsen this effect. Ask your doctor before using opioid medication, a sleeping pill, a muscle relaxer, or medicine for anxiety or seizures. Tell your doctor about all your current medicines. Many drugs can affect dicyclomine, especially: bronchodilator asthma medication; cold or allergy medicine (Benadryl and others); glaucoma medication; heart medication; medicine to treat depression, anxiety, mood disorders, or mental illness; medicine to treat overactive bladder; medicine to treat Parkinson's disease; or medicine to treat stomach problems, motion sickness, or irritable bowel syndrome. This list is not complete and many other drugs may affect dicyclomine. This includes prescription and [id number] medicines, vitamins, and herbal products. Not all possible drug interactions arelisted here. Where can I get more information? Your pharmacist can provide more information about dicyclomine. Remember, keep this and all other medicines out of the reach of children, never share your medicines with others, and use this medication only for the indication prescribed. Every effort has been made to ensure that the information provided by [employer]. ('[employer]') is accurate, up-to-date, and complete, but no guarantee is made to that effect. Drug information contained herein may be time sensitive. [employer] information has been compiled for use by healthcare practitioners and consumers in the [place] and therefore [employer] does not warrant that uses outside of the [place] are appropriate, unless specifically indicated otherwise. [employer]'s drug information does not endorse drugs, diagnose patients or recommend therapy. [employer] drug information isan informational resource designed to assist licensed healthcare practitioners in caring for their p atients and/or to serve consumers viewing this service as a supplement to, and not a substitute for, the expertise, skill, knowledge and judgment of healthcare practitioners. The absence of a warningfor a given drug or drug combination in no way should be construed to indicate that the drug or drug combination is safe, effective or appropriate for any given patient. [employer] does not assume any responsibility for any aspect of healthcare administered with the aid of information [employer] provides. The information contained herein is not intended to cover all possible uses, directions, precautions, warnings, drug interactions, allergic reactions, or adverse effects. If you have questions about the drugs you are taking, check with your doctor, nurse or pharmacist. Copyright 4930-0411 [facility] [employer]. Version: 8.02. Revision Date: 01/25/2025. Education Materials Vomiting (Adult) Vomiting is a common symptom that may be due to different causes. These include gastroenteritis (stomach flu), food poisoning and gastritis. There are other more serious causes of vomiting which may be hard to diagnose early in the illness. Therefore, it is important to watch for the warning signs listed below. The main danger from repeated vomiting is dehydration. This is due to excess loss of water and minerals from the body. When this occurs, your body fluids must be replaced. Home care If symptoms are severe, rest at home for the next 24 hours. Because your symptoms may be from an infection, wash your hands often and well. If soap and water are not available, use alcohol-based boat engines installer to keep from spreading the infection to others. Wash your hands for at least 20 seconds. Humming the happy birthday song twice while you wash is aneasy way to make sure you've washed for 20 seconds. Wash your hands after using the toilet, before and after preparing food, before eating food, after changing a diaper, cleaning a wound, caring for a sick person, and blowing your nose, coughing, or sneezing. You should also wash your hands after caring for someone who is sick, touching pet food, ortreats, and touching an animal, or animal waste. You may use acetaminophen or NSAID medicines like ibuprofen or naproxen to control fever, unless another medicine was prescribed. If you have chronic liver or kidney disease or ever had a stomach ulcer or gastrointestinal bleeding, talk with your doctor before using these medicines. Aspirin should never be used in anyone under 18 years of age who is ill with a fever. It may cause severe liver damage. Don't use NSAID medicines if you are already taking one for another condition (like arthritis) or are on aspirin (such as for heart disease, or after a stroke) Don't use tobacco and or drink alcohol, which may worsen your symptoms. If medicines for vomiting were prescribed, take as directed. Once vomiting stops, then follow these guidelines: During the first 12 to 24 hours follow the diet below: Fruit juices. Apple, grape juice, clear fruit drinks, and electrolyte replacement drinks. Beverages. Soft drinks without caffeine; mineral water (plain or flavored), decaffeinated tea and coffee. Soups. Clear broth and bouillon Desserts. Plain gelatin, ice pops, and fruit juice bars. As you feel better, you may add 6 to 8 ounces of yogurt per day. During the next 24 hours you may add the following to the above: Hot cereal, plain toast, bread, rolls, crackers Plain noodles, rice, mashed potatoes, chicken noodle or rice soup Unsweetened canned fruit such as applesauce, bananas (avoid pineapple and citrus) Limit caffeine and chocolate. No spices or seasonings except salt. During the next 24 hours: Gradually resume a normal diet, as you feel better and your symptoms lessen. Follow-up care Follow up with your healthcare provider, or as advised. When to seek medical advice Call your healthcare provider right away if any of these occur: Constant right-sided lower belly pain or increasing general belly pain Continued vomiting (unable to keep liquids down) for 24 hours Vomiting blood or coffee grounds Swollen belly Frequent diarrhea (more than 5 times a day); blood (red or black color) or mucus in diarrhea Reduced urine output or extreme thirst Weakness, dizziness or fainting Unusually drowsy or confused Fever of 100.4 F (38 C) oral or higher, or as directed Yellow color of the eyes or skin [id number] [employer]. [address] [place] [address], [place] [address]. All rights reserved. This information is not intended as a substitute for professional medical care. Always follow yourhealthcare professional's instructions. Marijuana Abuse Marijuana is the most widely used illegal drug in the [place]. It is called by various names such as pot, weed, blunts, grass, reefer, ganja, hash, or hashish. It is usually smoked but can be mixed with foods, or brewed as a tea. It is sometimes sold with PCP (terry dust) or amphetamine mixedin it. These drugs can cause other harmful side effects. Marijuana can cause the following effects: Changes in mood (stimulated, happy, drowsy, depressed, paranoid) Hallucinations Increased heart rate and blood pressure Increased appetite Time distortion, difficulty concentrating, impaired memory Lung damage (similar to cigarettes with chronic cough, wheezing, frequent colds, and bronchitis) Decreased sperm count Dizziness, vertigo You can become psychologically dependent on marijuana. That means the craving to use the drug is emotional or psychological rather than due to physical withdrawal. Is marijuana running your life? Here are some of the signs: Relying on marijuana to feel good, forget problems, deal with stress or to relax Wanting to be alone most of the time or only with others who use drugs Losing interest in things that used to be important Changes in school or job performance or attendance Spending a lot of time thinking about how to get marijuana Stealing or selling your things so you can buy marijuana Unable to stop using even though you may want to quit Increasing anxiety, anger, or depression Sleeping too much, changes in eating habits (weight loss or gain) Needing to use more to get the same effect Home care The following suggestions will help you manage marijuana abuse: Once you have become addicted to any drug, quitting is hard to do. Most people find they can't quitwithout help. So, don t try to do this alone. Talk to someone you trust who can support you. Seek professional help. Avoid people and places where drugs are used. That only increases the temptation to use. Follow-up care Follow up with your healthcare provider, or as advised. For more information or a referral to a treatment center in your area, contact: Your local mental health center or the National Alcohol and Substance Abuse Information Center (023)-526-2910 www.addictioncareoptions.com National [place] on Alcoholism and Drug Dependence 748-322-2926 www.ncadd.org Marijuana Anonymous 813-929-2726 www.marijuana-anonymous.org When to seek medical advice Call your healthcare provider right away if any of these occur: You feel extreme depression, fear, anxiety, or anger toward yourself or others. You feel out of control. You feel that you may try to harm yourself or another. You experience chest pain or shortness of breath. [phone] [employer]. [address] [place] [address]. All rights reserved. This information is not intended as a substitute for professional medical care. Always follow yourhealthcare professional's instructions. Additional Information VACCINATE! IT SAVES LIVES! Members of the community who have not yet received the COVID-19 vaccine and would like to receive it can visit one of [facility] vaccine clinics. There are many vaccine clinic locations within the [facility]. For locations and available times, please visit [email or web address] It is important to note that some COVID mobile vaccine clinics are held outdoors and may be canceled in rainy or stormy conditions. To learn more about pediatric vaccinations (ages 5-11), we invite you to visit the [facility] webpage. [email or web address] learn more about the COVID-19 vaccine, we invite you to visit the CDC website for a list of frequently asked questions. https://www.cdc.gov/coronavirus/2019-ncov/vaccines/faq.html [facility] Patient Portal Access Instructions: Stay connected with your healthcare team and access your personal medical information anytime with the [facility] Patient Portal. If you would like a full copy of your medical records please contact the [facility] Medical Records Department Thursday through Thursday between 8a.m. and 4:30p.m. Please follow the directions below to access the portal: 1.Access the email account you provided upon registration to the [facility].2.Look for an invitation email from [facility].3.Open the email and access the invitation link: Accept Invitation to [facility]4.Fill in the required goel to create your account. Sign into [email or web address] with your username and password that you created in the above steps to stay up to date. You can then view a summary of results, a summary of your visits, and the ability to download your summaries to your computer or send the information securely to a physician. Remember that your healthcare information is confidential, so carefully consider who you will allow to register on the [facility] Patient Portal for access to your information. You can also access the [facility] Patient Portal on the [employer]. Simply click on Health Records under [employer] and then click on the [employer] logo. HOW TO SAFELY DISPOSE OF PRESCRIPTION MEDICATIONS Please use one of the following methods to safely dispose of your unused medications. 1.Use a drug disposal kit: the drug disposal pouch allows you to safely discard your old and unuseddrugs. Ask your nurse to give you one when you are discharged.2.Visit a local take-back location: Many local pharmacies and police departments have programs that collect old and unwanted prescriptiondrugs. Call your local pharmacy or go to http://[employer] [employer]/3N7Yy3h to find one close to you.3.Make use of household items: Use cat litter or old coffee grounds to dispose medications if other options arenot available. Mix your drugs with these household products, seal them in an airtight container andthrow it into the garbage. Call [facility]: [phone] to be sure your drugs can be disposed of in this way. Some medicines may require a different approach.4.Never flush your medications down the toilet. IF YOU HAVE BEEN PRESCRIBED AN OPIOIDS FOR PAIN If you have been prescribed an opioid (such as hydrocodone, oxycodone or morphine), it is critical to understand the possible side effects and risks of opioid pain medications. Even when taken as directed, opioids can have several side effects including: Tolerance, meaning you might need to take more of a medication for the same pain relief. Nausea, vomiting and/or constipation. Sleepiness, dizziness, dry mouth, confusion, depression or itching. Physical dependence, meaning you have withdrawal symptoms when a medication is stopped ? this can develop within a few days. KNOW YOUR RESPONSIBILITIES It is important to know exactly how much and how often to take the opioid pain medications you are prescribed. Never take opioids in higher amounts or more often than prescribed. Do not combine opioids with alcohol or other drugs that cause drowsiness, such as benzodiazepines, also known as benzos,including diazepam and alprazolam, muscle relaxants or sleep aids. Never sell or share prescriptionopioids. This is illegal. Store opioids in a secure place and out of reach of others (including children, family, friends and visitors). The last page(s) of this document has been signed and retained as a CHART COPY Signatures Patient Education Materials Vomiting (Adult) Marijuana Abuse Medication Leaflets dicyclomine (oral/injection) My discharge plan and instructions have been reviewed and explained to me and IBRIAN JASMINE E understand my current condition and have read and understand these discharge instructions. I have received a written copy of the plan/instructions. If I have questions, I am aware that I should contact my doctor. Patient/Watch Supervisor Signature: Date/Time: Relationship to Patient: Witness Name/Signature: Date/Time: [facility]07-03-2025 Hospital Discharge instructions Patient Education 03/09/2025 11:38:46 Abdominal Pain Abdominal Pain Abdominal pain is pain in the stomach or belly area. Everyone has this pain from time to time. In many cases it goes away on its own. But abdominal pain can sometimes be due to a serious problem, such as appendicitis. So it s important to know when to get help. Causes of abdominal pain There are many possible causes of abdominal pain. Common causes in adults include: Constipation, diarrhea, or gas Stomach acid flowing back up into the esophagus (acid reflux or heartburn) Severe acid reflux, called GERD (gastroesophageal reflux disease) A sore in the lining of the stomach or small intestine (peptic ulcer) Inflammation of the gallbladder, liver, or pancreas Gallstones or kidney stones Appendicitis Intestinal blockage An internal organ pushing through a muscle or other tissue (hernia) Urinary tract infections In women, menstrual cramps, fibroids, ovarian cysts, pelvic inflammatory disease, or endometriosis Inflammation or infection of the intestines, including Crohn's disease and ulcerative colitis Irritable bowel syndrome Diagnosing the cause of abdominal pain Your healthcare provider will give you a physical exam help find the cause of your pain. If needed,you will have tests. Belly pain has many possible causes. So it can be hard to find the reason for your pain. Giving details about your pain can help. Tell your provider where and when you feel the pain, and what makes it better or worse. Also let your provider know if you have other symptoms such as: Fever Tiredness Upset stomach (nausea) Vomiting Changes in bathroom habits Blood in the stool or black, tarry stool Weight loss that you can't explain (involuntary weight loss?) Also report any family history of stomach or intestinal problems, or cancers. Tell your provider about all your alcohol use and drug use. Tell your provider about all medicines you use, including herbs, vitamins, and supplements. Treating abdominal pain Some causes of pain need emergency medical treatment right away. These include appendicitis or a bowel blockage. Other problems can be treated with rest, fluids, or medicines. Your healthcare provider can give you specific instructions for treatment or self-care based on what is causing your pain. If you have vomiting or diarrhea, sip water or other clear fluids. When you are ready to eat solid foods again, start with small amounts of xakr-kd-lmhdss, low- fat foods. These include apple sauce, toast, or crackers. When to get medical care Call 911 or go to the hospital right away if you: Can t pass stool and are vomiting Are vomiting blood or have bloody diarrhea or black, tarry diarrhea Have chest, neck, or shoulder pain Feel like you might pass out Have pain in your shoulder blades with nausea Have sudden, severe belly pain Have new, severe pain unlike any you have felt before Have a belly that is rigid, hard, and hurts to touch Call your healthcare provider if you have: Pain for more than 5 days Bloating for more than 2 days Diarrhea for more than 5 days A fever of 100.4 F (38 C) or higher, or as directed by your healthcare provider Pain that gets worse Weight loss for no reason Continued lack of appetite Blood in your stool How to prevent abdominal pain Here are some tips to help prevent abdominal pain: Eat smaller amounts of food at each meal. Don't eat greasy, fried, or other high-fat foods. Don't eat foods that give you gas. Exercise regularly. Drink plenty of fluids. To help prevent GERD symptoms: Quit smoking. Reduce alcohol and foods that increase stomach acid. Don't use aspirin or ykef-kpf-teljmqc pain and fever medicines, if possible. This includes nonsteroidal anti-inflammatory drugs (NSAIDs). Lose excess weight. Finish eating at least 2 hours before you go to bed or lie down. Raise the head of your bed. [id number] [employer]. [address] [place] [address]. All rights reserved. This information is not intended as a substitute for professional medical care. Always follow yourhealthcare professional's instructions. Follow Up Care 03/09/2025 09:22:01 With:GOPAL WALSH Address: [address] [place] [phone] When:2-4 days [facility] 07-03-2025 Note Discharge Instructions Thank you for allowing [facility] to assist you with your healthcare needs. The following is importantdischarge information regarding your hospital visit. What to Do Next Instructions from Your Care Team No qualifying data available. Post Acute Orders No qualifying data available. You Need to Schedule the Following Appointments Follow Up with GOPAL WALSH When:Within 2-4 days Where:[address] [place] [phone] Allergies Lactated Ringers hives Phenergan vomiting Rocephin itching Medications Please ask your primary doctor or pharmacist before taking any other medication not listed, including over the counter drugs, herbal medications, vitamins and or supplements as they may interact withyour home medications. What How Much When Why Instructions Last Dose Unchanged diclofenac topical (diclofenac 1% topical gel) 1 application Topical Four (4) times a day Unchanged dicyclomine (dicyclomine 10 mg oral capsule) 1 cap by mouth Four (4) times a day Duration: 10 Days Unchanged dicyclomine (dicyclomine 20 mg oral tablet) 1 tab(s) by mouth Four (4) times a day as needed for As needed for abdominal discomfort Duration: 3 Days Unchanged ondansetron (Zofran ODT use ondansetron oral tablet, disintegrating ) 4 Milligram by mouth Every 8 hours Abdominal pain Duration: 7 Days Unchanged pantoprazole (pantoprazole 40 mg oral enteric coated tablet) 1 tab(s) by mouth Once a day Unchanged tamsulosin (tamsulosin 0.4 mg oral capsule) 1 cap by mouth Once a day Please take this list to your next doctor s visit. Bring all medications you take, including over the counter medications, herbals and other supplements with you to your doctor s visit. Patients and families are reminded to discard old lists and to update any records with all medication providers or retail pharmacies. Education Materials Abdominal Pain Abdominal pain is pain in the stomach or belly area. Everyone has this pain from time to time. In many cases it goes away on its own. But abdominal pain can sometimes be due to a serious problem, such as appendicitis. So it s important to know when to get help. Causes of abdominal pain There are many possible causes of abdominal pain. Common causes in adults include: Constipation, diarrhea, or gas Stomach acid flowing back up into the esophagus (acid reflux or heartburn) Severe acid reflux, called GERD (gastroesophageal reflux disease) A sore in the lining of the stomach or small intestine (peptic ulcer) Inflammation of the gallbladder, liver, or pancreas Gallstones or kidney stones Appendicitis Intestinal blockage An internal organ pushing through a muscle or other tissue (hernia) Urinary tract infections In women, menstrual cramps, fibroids, ovarian cysts, pelvic inflammatory disease, or endometriosis Inflammation or infection of the intestines, including Crohn's disease and ulcerative colitis Irritable bowel syndrome Diagnosing the cause of abdominal pain Your healthcare provider will give you a physical exam help find the cause of your pain. If needed,you will have tests. Belly pain has many possible causes. So it can be hard to find the reason for your pain. Giving details about your pain can help. Tell your provider where and when you feel the pain, and what makes it better or worse. Also let your provider know if you have other symptoms such as: Fever Tiredness Upset stomach (nausea) Vomiting Changes in bathroom habits Blood in the stool or black, tarry stool Weight loss that you can't explain (involuntary weight loss?) Also report any family history of stomach or intestinal problems, or cancers. Tell your provider about all your alcohol use and drug use. Tell your provider about all medicines you use, including herbs, vitamins, and supplements. Treating abdominal pain Some causes of pain need emergency medical treatment right away. These include appendicitis or a bowel blockage. Other problems can be treated with rest, fluids, or medicines. Your healthcare provider can give you specific instructions for treatment or self-care based on what is causing your pain. If you have vomiting or diarrhea, sip water or other clear fluids. When you are ready to eat solid foods again, start with small amounts of anes-qx-nnaepr, low- fat foods. These include apple sauce, toast, or crackers. When to get medical care Call 911 or go to the hospital right away if you: Can t pass stool and are vomiting Are vomiting blood or have bloody diarrhea or black, tarry diarrhea Have chest, neck, or shoulder pain Feel like you might pass out Have pain in your shoulder blades with nausea Have sudden, severe belly pain Have new, severe pain unlike any you have felt before Have a belly that is rigid, hard, and hurts to touch Call your healthcare provider if you have: Pain for more than 5 days Bloating for more than 2 days Diarrhea for more than 5 days A fever of 100.4 F (38 C) or higher, or as directed by your healthcare provider Pain that gets worse Weight loss for no reason Continued lack of appetite Blood in your stool How to prevent abdominal pain Here are some tips to help prevent abdominal pain: Eat smaller amounts of food at each meal. Don't eat greasy, fried, or other high-fat foods. Don't eat foods that give you gas. Exercise regularly. Drink plenty of fluids. To help prevent GERD symptoms: Quit smoking. Reduce alcohol and foods that increase stomach acid. Don't use aspirin or ugvm-fxp-obbmwtk pain and fever medicines, if possible. This includes nonsteroidal anti-inflammatory drugs (NSAIDs). Lose excess weight. Finish eating at least 2 hours before you go to bed or lie down. Raise the head of your bed. [id number] [employer]. [address] [place] [address], [place] [address]. All rights reserved. This information is not intended as a substitute for professional medical care. Always follow yourhealthcare professional's instructions. Additional Information VACCINATE! IT SAVES LIVES! Members of the community who have not yet received the COVID-19 vaccine and would like to receive it can visit one of [facility] vaccine clinics. There are many vaccine clinic locations within the [facility]. For locations and available times, please visit www.gettheshot.coronavirus.[place].gov/. It is important to note that some COVID mobile vaccine clinics are held outdoors and may be canceled in rainy or stormy conditions. To learn more about pediatric vaccinations (ages 5-11), we invite you to visit the [facility] webpage. https://www.[employer].[email or web address]/[email or web address]-[email or web address]-[email or web address] [email or web address].htmlTo learn more about the COVID-19 vaccine, we invite you to visit the CDC website for a list of frequently asked questions. https://www.cdc.gov/coronavirus/2019-ncov/vaccines/faq.html [facility] Patient Portal Access Instructions: Stay connected with your healthcare team and access your personal medical information anytime with the [facility] Patient Portal. If you would like a full copy of your medical records please contact the [facility] Medical Records Department Thursday through Thursday between 8a.m. and 4:30p.m. Please follow the directions below to access the portal: 1.Access the email account you provided upon registration to the [facility].2.Look for an invitation email from [facility].3.Open the email and access the invitation link: Accept Invitation to [facility]4.Fill in the required goel to create your account. Sign into [email or web address] with your username and password that you created in the above steps to stay up to date. You can then view a summary of results, a summary of your visits, and the ability to download your summaries to your computer or send the information securely to a physician. Remember that your healthcare information is confidential, so carefully consider who you will allow to register on the [facility] Patient Portal for access to your information. You can also access the [facility] [employer] Patient Portal on the [employer]. Simply click on Health Records under HealthData and then click on the [employer] logo. HOW TO SAFELY DISPOSE OF PRESCRIPTION MEDICATIONS Please use one of the following methods to safely dispose of your unused medications. 1.Use a drug disposal kit: the drug disposal pouch allows you to safely discard your old and unuseddrugs. Ask your nurse to give you one when you are discharged.2.Visit a local take-back location: Many local pharmacies and police departments have programs that collect old and unwanted prescriptiondrugs. Call your local pharmacy or go to http://[employer] [employer]/6Q7Nm8a to find one close to you.3.Make use of household items: Use cat litter or old coffee grounds to dispose medications if other options arenot available. Mix your drugs with these household products, seal them in an airtight container andthrow it into the garbage. Call [facility]: [phone] to be sure your drugs can be disposed of in this way. Some medicines may require a different approach.4.Never flush your medications down the toilet. IF YOU HAVE BEEN PRESCRIBED AN OPIOIDS FOR PAIN If you have been prescribed an opioid (such as hydrocodone, oxycodone or morphine), it is critical to understand the possible side effects and risks of opioid pain medications. Even when taken as directed, opioids can have several side effects including: Tolerance, meaning you might need to take more of a medication for the same pain relief. Nausea, vomiting and/or constipation. Sleepiness, dizziness, dry mouth, confusion, depression or itching. Physical dependence, meaning you have withdrawal symptoms when a medication is stopped ? this can develop within a few days. KNOW YOUR RESPONSIBILITIES It is important to know exactly how much and how often to take the opioid pain medications you are prescribed. Never take opioids in higher amounts or more often than prescribed. Do not combine opioids with alcohol or other drugs that cause drowsiness, such as benzodiazepines, also known as benzos,including diazepam and alprazolam, muscle relaxants or sleep aids. Never sell or share prescriptionopioids. This is illegal. Store opioids in a secure place and out of reach of others (including children, family, friends and visitors). The last page(s) of this document has been signed and retained as a CHART COPY Signatures Patient Education Materials Abdominal Pain Medication Leaflets My discharge plan and instructions have been reviewed and explained to me and I,ADDIS TORRES understand my current condition and have read and understand these discharge instructions. I have received a written copy of the plan/instructions. If I have questions, I am aware that I should contact my doctor. Patient/Watch Supervisor Signature: Date/Time: Relationship to Patient: Witness Name/Signature: Date/Time: [facility]06-11-2025 Instructions* Patient Instructions* Pola Barrett DO - 02/15/2025 3:10 PM EDT Hi Addis Torres, You were at the [facility] today for an appointment. The following describes your care plan and instructions: - Referral place to chronic pain recovery, Gynecology and pelvic floor physical therapy - Follow up for injection as discussed Please call the clinic with any questions or issues. Thank you for allowing us to participate in your care. [facility] February 15, 2025 [facility] History of Present illness Narrative* Fermín Ortiz MD - 02/15/2025 2:37 PM EDT Images from the original note were not included. [facility] New Patient Consultation Referring Physician: No referring provider defined for this encounter. Chief Complaint: pelvic pain SUBJECTIVE: Addis Torres is a 25 year old female with a pertinent past medical history of endometrial cancer, hysterectomy complicated by left ureteral injury and has had ureter re-routed without improvement who presents to [facility] for the evaluation of pelvic pain. The patient complains of pelvic pain. The pain started 4 yrs ago following hysterectomy to remove endometrial cancer and symptoms have been persistent. The pain is located in the suprapubic area and radiates to the right side of the abdomen on occasion. The pain is described as sharp and stabbing. Currently, the pain is rated at 6/10, and it ranges from 5-10/10 on the patient's best and worst days, respectively. The pain is exacerbated by eating, drinking. The pain is mitigated by medications. The pain does interfere with the patient's sleep at night and the patient reports 2 hours of uninterrupted sleep per night. The patient does not currently work. The patient denies red flags. Physical Therapy/Home Exercise: No In the past 12 months, She completed 0 physical therapy sessions. Physical therapy is n/a. Current Pain Medications and Dosages: - Opioids: NA - NSAIDs: NA - Anti-Depressants: Amitriptyline 10mg QHS - Anti-Convulsants: Gabapentin 600mg TID - Others: NA Prior treatments (including what specific medications tried): Connell and was not helpful Prior Pain Procedures (with percentage of pain relief and duration of relief): 01/02/2025 endoscopicguided celiac plexus block: 40% relief with ongoing improvement OARRS report: Reviewed: The patient's OARRS report was reviewed and is consistent with the reportedmedication use. Pain medications reviewed: Yes PAST MEDICAL HISTORY Diagnosis Date Cannabis dependence (HCC) 07/20/2024 Chronic abdominal pain 07/29/2024 Endometrial adenocarcinoma (HCC) 10/04/2021 Dx with endometrial adenocarcinoma (grade 1) in 11/2020, 12/2020 s/p TIARRA (cevix removed) and bilateral salpingectomy with intra operative left ureteral injury. S/p multiple hospitalizations after this complication req multiple stent. Genetic testing negative for gregory syndrome, family hx of maternal aunt with ovarian cancer. Gastroparesis 07/30/2024 Hx laparoscopic cholecystectomy 08/14/2024 Laparoscopic cholecystectomy with intraoperative cholangiogram 08/09/2024 Malnutrition of moderate degree (HCC) 08/06/2024 Obesity, Class I, BMI 30-34.9 08/09/2024 Pancreas divisum 08/14/2024 PAST SURGICAL HISTORY Procedure Laterality Date LAPAROSCOPIC CHOLECYSTECTOMY 08/09/2024 w/ intraoperative cholangiogram; Lap. bi. transversus abdominus plane block Dr. Lopez MIDLINE INSERTION/CONSULT 08/14/2024 Social History Tobacco Use Smoking status: Passive Smoke Exposure - Never Smoker Tobacco comments: dad smokes outside Vaping Use Vaping status: Never Used Substance Use Topics Alcohol use: Not Currently Drug use: Yes Types: Marijuana No family history on file. ALLERGIES Allergen Reactions Lactated Ringers Itching, Other: See Comments reddness Phenergan [Prometha* Vomiting Rocephin [Ceftriaxo* Unknown Current Outpatient Medications Medication Sig amitriptyline (ELAVIL) 10 mg tablet Take 10 mg by mouth daily at bedtime. docusate sodium (COLACE) 100 mg capsule 100 mg. ibuprofen (MOTRIN) 600 mg tablet Take 600 mg by mouth. metoclopramide HCl (REGLAN) 10 mg tablet Take 10 mg by mouth. OLANZapine (ZYPREXA) 5 mg tablet Take 5 mg by mouth. ondansetron orally disintegrating (ZOFRAN ODT) 4 mg disintegrating tablet dissolve 1 tablet ON THE TONGUE every 6 hours if needed for nausea or vomiting methocarbamol (ROBAXIN) 500 mg tablet Take 500 mg by mouth four times daily. HYOSCYAMINE ORAL Take by mouth. gabapentin (NEURONTIN) 600 mg tablet Take 1 tablet by mouth three times a day for 30 days. mirtazapine orally disintegrating (REMERON SOLTAB) 30 mg disintegrating tablet Take 1 tablet by mouth daily at bedtime. pantoprazole DR (PROTONIX) 40 mg tablet Take 1 tablet by mouth two times a day before meals at 6 amand 4 pm. polyethylene glycol 3350 17 gram packet Take 1 Packet by mouth once daily. Dissolve dose in 4 - 8 ounces of liquid and take as directed. scopolamine (TRANSDERM-SCOP) patch 1.5 mg/72 hr (delivers 1 mg over 3 days) Apply 1 Patch as directed every 72 hours. dicyclomine (BENTYL) 10 mg capsule Take 1 capsule by mouth before meals and at bedtime. methyl salicylate-menthol (ICY HOT) 30-10 % cream Apply to affected area four times a day as needed(pain). acetaminophen (TYLENOL) 500 mg tablet Take 2 tablets by mouth every 8 hours. mirtazapine (REMERON) 15 mg tablet Take 15 mg by mouth every evening. No current facility-administered medications for this visit. Questionnaires: Patient Entered Questionnaires PROMIS Score Percentiles Percentiles provide an indication of how the patient's score ranks in relation to the general population. Higher percentile rankings indicate better function/quality of life. 50th percentile is the average of the general population and indicates half of respondents had a worse score. > 31st percentile is within normal limits or better * < 31st percentile is at least SD worse than population, which may be clinically relevant < 16th percentile is at least 1 SD worse than population and warrants attention Depression Screening: PHQ-9 Self-Harm (Item 9) response options: 0 Not at all 1 Several days 2 More than half the days 3 Nearly every day PHQ-9 Levels: 0-4 Minimal depression 5-9 Mild depression 10-14 Moderate depression 15-19 Moderately severe depression 20-27 Severe depression No data to display (0-4) minimal depression, (5-9) mild depression, (10-14) moderate depression, (15-19) moderately severe depression, (20-27) severe depression No data to display No data to display REVIEW OF SYSTEMS: The remainder of the ROS was negative. OBJECTIVE: BP 141/98 Pulse 106 Temp 98.3 Resp 20 Ht 5' 7.5 (1.72m) Wt 207 lb (93.9kg) SpO2 98% LMP 11/12/2014 BMI 31.92 kg/(m^2). PHYSICAL EXAMINATION: General:well appearing, alert, and in no acute distress Psych: Appropriate affect Skin: skin color, texture, turgor normal, no rashes or lesions HEENT: normocephalic, atraumatic, sclera non-icteric GI: Soft, non-distended and Pain on palpation of the left lower quadrant and suprapubic, Carnett negative : not examined Musculoskeletal: Neck: Supple; good ROM. Back: No pain on palpation of the lumbar spine. Full ROM without reproducible pain. Straight leg raising test negative bilaterally. Extremities: Extremities normal. No deformities, edema, or skin discoloration Neurological: Mental Status: alert, oriented to person, place, and time Cranial Nerves: Not examined Reflexes: Not Examined Motor Strength: Motor strength and tone are 5/5 all throughout. Sensory: Sensation was intact to light touch all throughout. Gait: Normal. Pertinent Imaging: * * *Final Report* * * DATE OF EXAM: Dec 05 2024 2:39PM [facility] 0530 - CT ABD/PEL W IVCON / PROCEDURE REASON: Abdominal pain, acute, nonlocalized * * * * Physician Interpretation * * * * EXAMINATION: CT ABDOMEN AND PELVIS WITH IV CONTRAST CLINICAL HISTORY: Nausea/vomiting. Abdominal pain acute nonlocalized. TECHNIQUE: CT of the abdomen and pelvis was performed using standard technique, scanning from just above the dome of the diaphragm to the symphysis pubis. MQ: CTAP_3 Contrast: IV: 100 ml of Omnipaque 350 CT Radiation dose: Integrated Dose-length product (DLP) for this visit = 983 mGy*cm. CT Dose Reduction Employed: Automated exposure control (AEC) COMPARISON: 10/06/2024 CT RESULT: Liver: No mass. Biliary: No bile duct dilation. Gallbladder is absent. Spleen: No mass. No splenomegaly. Pancreas: No mass or duct dilation. Adrenals: No mass. Kidneys: No mass, calculus or hydronephrosis. GI tract: No dilation or wall thickening. Normal appendix. Lymph nodes: No abdominal or pelvic lymphadenopathy. Mesentery/Peritoneum: No ascites or mass. Retroperitoneum: No mass or fluid collection. Vasculature: - Abdominal aorta and iliac arteries: No aneurysm. - Celiac and SMA: Patent without stenosis. - Portal venous system (SMV, splenic vein, portal vein and branches): Patent. - Hepatic veins: Patent. Pelvis: No mass, ascites or fluid collection. Hysterectomy. Bones/Soft Tissues: No significant finding. Lower thorax: Unremarkable. Localizer images: No additional findings. 09/01/2024 IMPRESSION: Normal gastric emptying rate for the solid meal. 08/08/2024 * * *Final Report* * * DATE OF EXAM: Aug 08 2024 11:59AM [facility] 0730 - MRI PANC/MODESTA WO/W IVCON / PROCEDURE REASON: RUQ pain, no fever, no elev WBC * * * * Physician Interpretation * * * * MRI OF THE ABDOMEN WITHOUT AND WITH CONTRAST: HISTORY: Clinical information: RUQ pain, no fever, no elev WBC mri panc/modesta wo/w - 18 cc dotarem administered - abdominal pain for 1 month elevated serum lipase COMPARISON: 07/31/2024 ultrasound right upper quadrant and 07/29/2024 CT abdomen pelvis with IV contrast. TECHNIQUE: Using the torso phased array coil, axial STIR, T1 weighted in- and [id number] and axial and coronal HASTE images were obtained. Thick-slab and thin-slab heavily T2 weighted images were also obtained (MRCP). Then, using a 3-D GRE T1 weighted sequence, dynamic images were obtained before, during and after the intravenous administration of 18 cc of Dotarem. 3-D images were postprocessed on a dedicated off-line workstation and were reviewed by the interpreting physician. FINDINGS: Biliary tract: The common bile duct is normal in course and caliber. No filling defect is identified within the common duct. Pancreatic duct: The visualized portions of the pancreatic duct are normal. There is pancreas divisum. Pancreas: The pancreas enhances normally and is without focal lesions. No peripancreatic fluid or edema. Gallbladder: Slightly distended. Layering sludge is present. No obvious calculi. No pericholecystic fluid. No wall thickening or abnormally increased enhancement suggests inflammation. Liver: The liver is normal in appearance on precontrast images, enhances homogeneously and is without focal lesion. No steatosis. Normal-appearing morphology. Spleen: No lesion is identified. Adrenal glands: No mass is identified Kidneys: The visualized portions of the kidneys are normal. No adenopathy is identified. No ascites or abnormal fluid collections are seen. 08/05/2024 * * *Final Report* * * DATE OF EXAM: Aug 05 2024 8:51PM [facility] 1055 - US KIDNEY/BLADDER / PROCEDURE REASON: Other * * * * Physician Interpretation * * * * EXAMINATION: RENAL ULTRASOUND CLINICAL HISTORY: History of injury to the left ureter during hysterectomy TECHNIQUE: Sonography of the kidneys and urinary bladder was performed. Images were obtained and stored in a permanent archive and interpreted remotely. MQ: UR_1 COMPARISON: Correlation made to CT abdomen pelvis dated 07/29/2024 RESULT: Right Kidney: -Renal length: 9.7 cm -Parenchyma: Normal parenchymal echogenicity. Normal parenchymal thickness. -Collecting system: No hydronephrosis. -Calculus: No echogenic, shadowing calculus. -Lesion: None. Left Kidney: -Renal length: 9.1 cm -Parenchyma: Normal parenchymal echogenicity. Normal parenchymal thickness. -Collecting system: No hydronephrosis. -Calculus: No echogenic, shadowing calculus. -Lesion: None. Bladder: Partially distended. ASSESSMENT/PLAN: Addis Torres is a 25 year old female with a pertinent past medical history of endometrial cancer, hysterectomy complicated by left ureteral injury and has had ureter re-routed without improvement who presents to [facility] for the evaluation of pelvic pain. 1. Chronic pain syndrome (G89.4) 2. Chronic female pelvic pain (R10.2) 3. Chronic abdominal pain (R10.9) - Chronic abdominal and pelvic pain for the past 4 years, onset post- hysterectomy for endometrial cancer. - Left ureteral injury during hysterectomy, subsequently repaired; cholecystectomy performed due tobiliary sludge, neither procedure alleviated pain. - Pain described as sharp and stabbing, constant, with a severity of 5-6/10 on good days and 8-10/10 on bad days; exacerbated by eating and drinking. - Recent celiac plexus block performed by GI on 12/30 provided approximately 40% pain relief. - Previous ketamine infusion during an ER visit provided 2 months of pain relief. - Abdominal exam reveals tenderness with deep palpation, negative Carnett's sign. - Initiated bilateral splanchnic nerve block and superior hypogastric nerve block to address remaining pain. - Referred to gynecology for further evaluation. - Referred to physical therapy for pelvic floor therapy. - [facility] infusions. (R10.9, G89.29) Chronic abdominal pain (primary encounter diagnosis) (R10.2, G89.29) Chronic pelvic pain in female The above plan and management options were discussed at length with the patient. The patient is in agreement with the above and verbalized understanding. It will be communicated with the referring physician via electronic record, fax, or mail. Pola Barrett DO February 15, 2025 Staff Note # Chronic abdominal pain (R10.9) # Chronic pelvic pain in female (R10.2) Abdominal and pelvic pain persisting for 4 years post-hysterectomy for endometrial cancer. Previousinterventions include ureteral re-routing and cholecystectomy, with minimal relief. Recent endoscopic celiac plexus block by Dr. Butler provided approximately 40% pain reduction, which is ongoing. Pain is described as visceral, with episodes of cyclic vomiting. Daily marijuana use noted, with someimprovement in symptoms during periods of abstinence. Central sensitization likely contributing to chronic pain state. - Perform bilateral splanchnic nerve block and superior hypogastric nerve block to address both abdominal and pelvic pain. - Discussed mechanism of pain relief through neuroplasticity and pain state modulation. - Patient and family understand and agree with the treatment plan. I was physically present during the farah portions of the Service. I confirmed the farah findings and directed the treatment plans in decision making. Fermín Ortiz MD, PhD [facility] History and physical note * Xavier Mark MD - 01/02/2025 11:30 AM EDT HISTORY AND PHYSICAL Addis Torres, 24 year old female Current history and physical on file: Yes Is a new History and Physical required for today's visit? Yes Indication for procedure: Other abdominal pain PROCEDURE(S) SCHEDULED FOR: EUS/FNA (Endoscopic Ultrasound with or without Fine Needle Aspiration), based on clinical findings. Celiac plexus block BASELINE BEHAVIOR: Calm BASELINE ORIENTATION: A & O x3 All medications and allergies reviewed: Yes Skin Assessment: Warm dry mucus membranes pink Airway/Respiratory Assessment: Airway: visualization of the uvula- Yes Mouth: opening greater than 2 fingerbreadths- Yes Neck: full range of motion- Yes Breath sounds clear/equal- Yes Cardiac Assessment: Regular rate and rhythm without murmur Abdominal Assessment: Abdomen soft, non-tender, no masses or organomegaly. Sedation Plan: Deep Additional Comments: None Xavier Mark MD [facility] Work Phone: [phone] History and physical note* Xavier Mark MD - 01/02/2025 11:30 AM EDT HISTORY AND PHYSICAL Addis Torres, 24 year old female Current history and physical on file: Yes Is a new History and Physical required for today's visit? Yes Indication for procedure: Other abdominal pain PROCEDURE(S) SCHEDULED FOR: EUS/FNA (Endoscopic Ultrasound with or without Fine Needle Aspiration), based on clinical findings. Celiac plexus block BASELINE BEHAVIOR: Calm BASELINE ORIENTATION: A & O x3 All medications and allergies reviewed: Yes Skin Assessment: Warm dry mucus membranes pink Airway/Respiratory Assessment: Airway: visualization of the uvula- Yes Mouth: opening greater than 2 fingerbreadths- Yes Neck: full range of motion- Yes Breath sounds clear/equal- Yes Cardiac Assessment: Regular rate and rhythm without murmur Abdominal Assessment: Abdomen soft, non-tender, no masses or organomegaly. Sedation Plan: Deep Additional Comments: None Xavier Mark MD [facility]Bl[facility] Hospital Discharge instructions Patient Education 12/27/2024 20:56:32 Chronic Pain Chronic Pain Pain serves an important role. It lets you know something is wrong that needs your attention. When the body heals, pain normally goes away. When pain lasts longer than 6 months, it is called chronic pain. This is pain that is present even after the body has healed. Chronic pain can cause mood problems and get in the way of your relationships and your daily life. A number of conditions can cause chronic pain. Some of the more common include: Previous surgery An old injury Infection Diseases such as diabetes Nerve damage Back injury Arthritis Migraine or other headaches Fibromyalgia Cancer Depression and stress can make chronic pain symptoms worse. In some cases, a cause for the pain can't be found. Treatment Treatment can greatly reduce pain. In many cases, pain can become less severe, occur less often, and interfere less with your daily life. Chronic pain is often treated with a combination of medicines, therapies, and lifestyle changes. You will work closely with your healthcare provider to find a treatment plan that works best for you. Ask your healthcare provider for a referral to a pain management specialty center. These can provide the most recent and proven pain management strategies, along with emotional support and comprehensive services. Several different types of medicines may be prescribed for chronic pain. Work with your healthcare provider to develop a medicine plan that helps manage your pain. Physical therapy can help reduce certain types of chronic pain. Occupational therapy teaches you how to do routine tasks of daily living in ways that lessen your discomfort. Counseling can help you cope better with stress and pain. Other therapies such as meditation, yoga, biofeedback, massage, and acupuncture can also help manage chronic pain. Changing certain habits can help reduce chronic pain. They include: oEating healthy oDeveloping an exercise routine oGetting enough sleep oStopping smoking and limiting alcohol use oLosing excess weight Follow-up care Follow up with your healthcare provider, or as advised. Let your healthcare provider know if your current treatment plan is working or if changes are needed. Resources For more information, contact: [place] [employer], herbert.memberMRI Interventions.[employer] or [phone] [place] [employer], theacpa.org or [phone] [employer] [place] [address]. All rights reserved. This information is not intended as a substitute for professional medical care. Always follow yourhealthcare professional's instructions. Follow Up Care 12/27/2024 17:26:52 With:GI Address: When:2-4 days [facility] 04-22-2025 Note Discharge Instructions Thank you for allowing [facility] to assist you with your healthcare needs. The following is importantdischarge information regarding your hospital visit. Diagnosis from Today's Visit Abdominal pain What to Do Next Instructions from Your Care Team No qualifying data available. Post Acute Orders No qualifying data available. You Need to Schedule the Following Appointments Follow Up with GI When:Within 2-4 days Allergies Lactated Ringers hives Phenergan vomiting Rocephin itching Medications Please ask your primary doctor or pharmacist before taking any other medication not listed, including over the counter drugs, herbal medications, vitamins and or supplements as they may interact withyour home medications. What How Much When Why Instructions Last Dose Unchanged diclofenac topical (diclofenac 1% topical gel) 1 application Topical Four (4) times a day Unchanged dicyclomine (dicyclomine 10 mg oral capsule) 1 cap by mouth Four (4) times a day Duration: 10 Days Unchanged dicyclomine (dicyclomine 20 mg oral tablet) 1 tab(s) by mouth Four (4) times a day as needed for As needed for abdominal discomfort Duration: 3 Days Unchanged ondansetron (Zofran ODT use ondansetron oral tablet, disintegrating ) 4 Milligram by mouth Every 8 hours Abdominal pain Duration: 7 Days Unchanged pantoprazole (pantoprazole 40 mg oral enteric coated tablet) 1 tab(s) by mouth Once a day Unchanged tamsulosin (tamsulosin 0.4 mg oral capsule) 1 cap by mouth Once a day Please take this list to your next doctor s visit. Bring all medications you take, including over the counter medications, herbals and other supplements with you to your doctor s visit. Patients and families are reminded to discard old lists and to update any records with all medication providers or retail pharmacies. Education Materials Chronic Pain Pain serves an important role. It lets you know something is wrong that needs your attention. When the body heals, pain normally goes away. When pain lasts longer than 6 months, it is called chronic pain. This is pain that is present even after the body has healed. Chronic pain can cause mood problems and get in the way of your relationships and your daily life. A number of conditions can cause chronic pain. Some of the more common include: Previous surgery An old injury Infection Diseases such as diabetes Nerve damage Back injury Arthritis Migraine or other headaches Fibromyalgia Cancer Depression and stress can make chronic pain symptoms worse. In some cases, a cause for the pain can't be found. Treatment Treatment can greatly reduce pain. In many cases, pain can become less severe, occur less often, and interfere less with your daily life. Chronic pain is often treated with a combination of medicines, therapies, and lifestyle changes. You will work closely with your healthcare provider to find a treatment plan that works best for you. Ask your healthcare provider for a referral to a pain management specialty center. These can provide the most recent and proven pain management strategies, along with emotional support and comprehensive services. Several different types of medicines may be prescribed for chronic pain. Work with your healthcare provider to develop a medicine plan that helps manage your pain. Physical therapy can help reduce certain types of chronic pain. Occupational therapy teaches you how to do routine tasks of daily living in ways that lessen your discomfort. Counseling can help you cope better with stress and pain. Other therapies such as meditation, yoga, biofeedback, massage, and acupuncture can also help manage chronic pain. Changing certain habits can help reduce chronic pain. They include: oEating healthy oDeveloping an exercise routine oGetting enough sleep oStopping smoking and limiting alcohol use oLosing excess weight Follow-up care Follow up with your healthcare provider, or as advised. Let your healthcare provider know if your current treatment plan is working or if changes are needed. Resources For more information, contact: [place] [employer], ahjennifer.memberclicks.net or [phone] [place] [employer], theacpa.org or 183-710-[address] [employer] [place] [address]. All rights reserved. This information is not intended as a substitute for professional medical care. Always follow yourhealthcare professional's instructions. Additional Information VACCINATE! IT SAVES LIVES! Members of the community who have not yet received the COVID-19 vaccine and would like to receive it can visit one of [facility] vaccine clinics. There are many vaccine clinic locations within the [facility]. For locations and available times, please visit www.gettheshot.coronavirus.[place].gov/. It is important to note that some COVID mobile vaccine clinics are held outdoors and may be canceled in rainy or stormy conditions. To learn more about pediatric vaccinations (ages 5-11), we invite you to visit the [facility] webpage. https://www.akScaled Inferences.org/pages/[email or web address]-Rbexr-Omtpggmbwsk-Xzerkdoxta-Nhduh-Zeh stions.htmlTo learn more about the COVID-19 vaccine, we invite you to visit the CDC website for a list of frequently asked questions. https://www.cdc.gov/coronavirus/2019-ncov/vaccines/faq.html [facility] Patient Portal Access Instructions: Stay connected with your healthcare team and access your personal medical information anytime with the [employer] Patient Portal. If you would like a full copy of your medical records please contact the [facility] Medical Records Department Thursday through Thursday between 8a.m. and 4:30p.m. Please follow the directions below to access the portal: 1.Access the email account you provided upon registration to the [facility].2.Look for an invitation email from [facility].3.Open the email and access the invitation link: Accept Invitation to [employer]4.Fill in the required ogel to create your account. Sign into [email or web address] with your username and password that you created in the above steps to stay up to date. You can then view a summary of results, a summary of your visits, and the ability to download your summaries to your computer or send the information securely to a physician. Remember that your healthcare information is confidential, so carefully consider who you will allow to register on the [employer] Patient Portal for access to your information. You can also access the [employer] Patient Portal on the [email or web address]. Simply click on Health Records under [employer] and then click on the [employer] logo. HOW TO SAFELY DISPOSE OF PRESCRIPTION MEDICATIONS Please use one of the following methods to safely dispose of your unused medications. 1.Use a drug disposal kit: the drug disposal pouch allows you to safely discard your old and unuseddrugs. Ask your nurse to give you one when you are discharged.2.Visit a local take-back location: Many local pharmacies and police departments have programs that collect old and unwanted prescriptiondrugs. Call your local pharmacy or go to http://[employer].[facility] [email or web address] to find one close to you.3.Make use of household items: Use cat litter or old coffee grounds to dispose medications if other options arenot available. Mix your drugs with these household products, seal them in an airtight container andthrow it into the garbage. Call [facility]: [phone] to be sure your drugs can be disposed of in this way. Some medicines may require a different approach.4.Never flush your medications down the toilet. IF YOU HAVE BEEN PRESCRIBED AN OPIOIDS FOR PAIN If you have been prescribed an opioid (such as hydrocodone, oxycodone or morphine), it is critical to understand the possible side effects and risks of opioid pain medications. Even when taken as directed, opioids can have several side effects including: Tolerance, meaning you might need to take more of a medication for the same pain relief. Nausea, vomiting and/or constipation. Sleepiness, dizziness, dry mouth, confusion, depression or itching. Physical dependence, meaning you have withdrawal symptoms when a medication is stopped ? this can develop within a few days. KNOW YOUR RESPONSIBILITIES It is important to know exactly how much and how often to take the opioid pain medications you are prescribed. Never take opioids in higher amounts or more often than prescribed. Do not combine opioids with alcohol or other drugs that cause drowsiness, such as benzodiazepines, also known as benzos,including diazepam and alprazolam, muscle relaxants or sleep aids. Never sell or share prescriptionopioids. This is illegal. Store opioids in a secure place and out of reach of others (including children, family, friends and visitors). The last page(s) of this document has been signed and retained as a CHART COPY Signatures Patient Education Materials Chronic Pain Medication Leaflets My discharge plan and instructions have been reviewed and explained to me and I,ADDIS TORRES understand my current condition and have read and understand these discharge instructions. I have received a written copy of the plan/instructions. If I have questions, I am aware that I should contact my doctor. Patient/Watch Supervisor Signature: Date/Time: Relationship to Patient: Witness Name/Signature: Date/Time: [facility]04-18-2025 [facility] History of Present illness Narrative* Nino Butler MD - 12/23/2024 9:36 AM EDT Berry Walsh Consultation requested by Dr. Walsh for an opinion regarding abd pain. My final recommendations willbe communicated back to the requesting physician by way of shared Medical record or letter to requesting physician via US mail. BP 135/101 (BP Site: Left Arm, BP Position: Sitting, BP Cuff Size: Regular Adult) Pulse 109 Temp 37 C (98.6 F) (Temporal) Ht 170.2 cm (5' 7) Wt 94.3 kg (207 lb 14.4 oz) LMP 11/12/2014 SpO2 99% BMI 32.56 kg/m Medications: Current Outpatient Medications Medication Sig amitriptyline (ELAVIL) 10 mg tablet Take 10 mg by mouth daily at bedtime. docusate sodium (COLACE) 100 mg capsule 100 mg. haloperidol (HALDOL) 2 mg tablet Take 2 mg by mouth. ibuprofen (MOTRIN) 600 mg tablet Take 600 mg by mouth. OLANZapine (ZYPREXA) 5 mg tablet Take 5 mg by mouth. traZODone (DESYREL) 50 mg tablet take 1 tablet by mouth at bedtime if needed for sleep / insomnia methocarbamol (ROBAXIN) 500 mg tablet Take 500 mg by mouth four times daily. HYOSCYAMINE ORAL Take by mouth. mirtazapine orally disintegrating (REMERON SOLTAB) 30 mg disintegrating tablet Take 1 tablet by mouth daily at bedtime. pantoprazole DR (PROTONIX) 40 mg tablet Take 1 tablet by mouth two times a day before meals at 6 amand 4 pm. scopolamine (TRANSDERM-SCOP) patch 1.5 mg/72 hr (delivers 1 mg over 3 days) Apply 1 Patch as directed every 72 hours. dicyclomine (BENTYL) 10 mg capsule Take 1 capsule by mouth before meals and at bedtime. acetaminophen (TYLENOL) 500 mg tablet Take 2 tablets by mouth every 8 hours. HYDROcodone-acetaminophen (NORCO) 5-325 mg per tablet TAKE 1 TABLET BY MOUTH 4 TIMES A DAY FOR 3 DAYS NEEDED FOR PAIN metoclopramide HCl (REGLAN) 10 mg tablet Take 10 mg by mouth. ondansetron orally disintegrating (ZOFRAN ODT) 4 mg disintegrating tablet dissolve 1 tablet ON THE TONGUE every 6 hours if needed for nausea or vomiting gabapentin (NEURONTIN) 600 mg tablet Take 1 tablet by mouth three times a day for 30 days. polyethylene glycol 3350 17 gram packet Take 1 Packet by mouth once daily. Dissolve dose in 4 - 8 ounces of liquid and take as directed. (Patient not taking: Reported on 12/23/2024) methyl salicylate-menthol (ICY HOT) 30-10 % cream Apply to affected area four times a day as needed(pain). (Patient not taking: Reported on 12/05/2024) ergocalciferol 50,000 unit capsule (VITAMIN D2, DRISDOL) Take 1 capsule one time a week for 8 doses. senna-docusate (SENNA-S) 8.6-50 mg per tablet Take 1 tablet by mouth two times a day. (Patient not taking: Reported on 12/05/2024) No current facility-administered medications for this visit. Subjective: This 24 year old female patient with chronic, constant.mid agbd pain x 5 years. Extensive eval negative. Awaiting pain mgmt follow. No alcohol use, CT scans negative. Wt stable, no vomiting, 1 bm q3d, on intermittent miralsx. Hx of endometrial cancer, s/p cholecystectomy and hysterectomy - hx of pancreas divisum. Physical Examination: General Appearance: alert, oriented x 3, pleasant and in no acute distress Heart: regular rate and rhythm, no murmurs or gallops Lungs: breath sounds clear to auscultation bilaterally, no crackles, rhonchi, or wheezes Abdomen: not distended, normal bowel sounds, soft and depressible, no guarding or rebound no palpable mass no organomegaly, mild mid abd pain Extremities: no cyanosis or edema CBC: @LASTLABX(WBC:2,HB,MCV,PLT,neut,lymphp])@ CMP: Alkaline Phosphatase (U/L) Date Value 12/05/2024 63 AST (U/L) Date Value 12/05/2024 15 ALT (U/L) Date Value 12/05/2024 18 Bilirubin, Total (mg/dL) Date Value 12/05/2024 0.4 Bilirubin, Direct (mg/dL) Date Value 10/08/2024 0.1 Glucose (mg/dL) Date Value 12/09/2024 60 (L) BUN (mg/dL) Date Value 12/09/2024 12 Creatinine (mg/dL) Date Value 12/09/2024 0.76 Sodium (mmol/L) Date Value 12/09/2024 135 (L) Chloride (mmol/L) Date Value 12/09/2024 97 (L) CO2 (mmol/L) Date Value 12/09/2024 19 (L) Protein, Total (g/dL) Date Value 12/05/2024 8.0 Albumin (g/dL) Date Value 12/09/2024 4.4 Calcium, Total (mg/dL) Date Value 12/09/2024 9.5 TSH: TSH (mIU/L) Date Value 10/11/2024 0.602 Impression and Plan: abd pain - will consult GI Psychiatry and request an EGD/EUS/celiac plexus block I have confirmed and edited as necessary PFSH and ROS obtained by others. Nino Butler MD Date: December 23, 2024 documented in this [facility]Bl[facility]04[facility] Emergency department Note * Natalee Garcia RN - 12/18/2024 9:17 AM EDT patient refused potassium drink. offered tablets, she said she can't do tablets either. usually hasK infusions. Resident notified. [id number] Emergency department Note* Natalee Garcia RN - 12/18/2024 9:17 AM EDT patient refused potassium drink. offered tablets, she said she can't do tablets either. usually hasK infusions. Resident notified. * Anthony Tobin MD - 12/18/2024 6:34 AM EDT Emergency Department Encounter [facility] EMERGENCY DEPT Patient: Addis Torres : 2000 Date of Evaluation: 12/18/2024 ED Supervising Physician: Anthony Tobin MD I independently examined and evaluated Addis Torres. This will serve as my Supervisory note as the rheologist of record and shared attestation. Idid perform a substantive portion of the visit including all aspects of the Medical Decision Making. I wore appropriate PPE for the entirety of this encounter. In brief, Addis Torres is a 24 y.o. female that presents to the emergency department with chronic abdominal pain who has frequent admissions to the hospital presenting with central abdominal pain she does endorse marijuana use especially when she is feeling ill most recently yesterday with smoking. She endorses multiple episodes of emesis no blood. Had normal bowel movement yesterday. She has had several abdominal surgeries she has had several CT scans in the past which were all unremarkable. Her most recent hospitalization was at [facility] at the end of last month until early this month. 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 She has moist 6 membranes she is holding an emesis bag with some clear fluid in it. Has some voluntary guarding throughout her abdomen although soft throughout. No CVA tenderness noted Brief ED course/MDM: EMERGENCY DEPARTMENT COURSE and DIFFERENTIAL DIAGNOSIS/MDM: Vitals: Vitals: 12/18/24 0643 12/18/24 0721 BP: (!) 138/96 (!) 131/99 BP Location: Left arm Patient Position: Sitting Pulse: 107 (!) 115 Resp: 16 16 Temp: 36.9 C (98.4 F) 37.2 C (99 F) TempSrc: Temporal SpO2: 98% 98% The patient presented with a chief complaint of with concern for abdominal pain. The differential diagnosis associated with this patient's presentation includes gastritis, gastroenteritis, cyclic vomiting syndrome. Our workup consisted of ordering/reviewing patient has chronic abdominal pain she has had multiple GI evaluations including gastric emptying study that I do not show any gastroparesis she is also hadEGD without major abnormalities noted. She was most recently admitted about 1 week ago with similarsymptoms at another facility and they discharged her with follow-up with pain management. She states only that works for her is morphine and Dilaudid although I do not believe this is an appropriate treatment course. Will start with Haldol, Bentyl, Toradol, fluids and check blood work. Patient's workup does show mild hypokalemia although similar to her baseline. Lipase within normal limits normal LFTs and no leukocytosis or acute anemia noted she was able to produce a urine sample does show ketones although no overt signs of infection noted. No emesis while in the emergency department and do not believe there is any further indication for admission at this time will be discharged Diagnoses as of 12/18/24 1158 Abdominal pain, generalized Diagnostic tests considered but not performed: External records reviewed: Diagnostics interpreted by me: Discussions with other clinicians: Chronic conditions impacting care: Social determinants of health affecting care: ED Medications managed: Medications sodium chloride 0.9 % bolus 1,000 mL (has no administration in time range) ketorolac (Toradol) injection 15 mg (has no administration in time range) dicyclomine (Bentyl) injection 20 mg (has no administration in time range) haloperidol lactate (Haldol) injection 2 mg (has no administration in time range) Prescription drugs considered: Disposition and plan: Generalized abdominal pain, nausea vomiting, discharge All diagnostic, treatment, and disposition decisions were made by myself in conjunction with the Resident/JAIRO. I also supervised farah portions of any procedures performed by the Resident/JAIRO. For all further details of the patient's emergency department visit, please see their documentation. (Comment: Please note this report has been produced using speech recognition software and may contain errors related to that system including errors in grammar, punctuation, and spelling, as well as words and phrases that may be inappropriate. If there are any questions or concerns please feel freeto contact the dictating provider for clarification.) Anthony Tobin MD [facility] Anthony Tobin MD 12/18/24 1158 documented in this [facility]04-13-2025 Physician Emergency department Note* Anthony Tobin MD - 12/18/2024 6:34 AM EDT Emergency Department Encounter [facility] EMERGENCY DEPT Patient: Addis Torres : 2000 Date of Evaluation: 12/18/2024 ED Supervising Physician: Anthony Tobin MD I independently examined and evaluated Addis Torres. This will serve as my Supervisory note as the rheologist of record and shared attestation. Idid perform a substantive portion of the visit including all aspects of the Medical Decision Making. I wore appropriate PPE for the entirety of this encounter. In brief, Addis Torres is a 24 y.o. female that presents to the emergency department with chronic abdominal pain who has frequent admissions to the hospital presenting with central abdominal pain she does endorse marijuana use especially when she is feeling ill most recently yesterday with smoking. She endorses multiple episodes of emesis no blood. Had normal bowel movement yesterday. She has had several abdominal surgeries she has had several CT scans in the past which were all unremarkable. Her most recent hospitalization was at [facility] at the end of last month until early this month. 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 She has moist 6 membranes she is holding an emesis bag with some clear fluid in it. Has some voluntary guarding throughout her abdomen although soft throughout. No CVA tenderness noted Brief ED course/MDM: EMERGENCY DEPARTMENT COURSE and DIFFERENTIAL DIAGNOSIS/MDM: Vitals: Vitals: 12/18/24 0643 12/18/24 0721 BP: (!) 138/96 (!) 131/99 BP Location: Left arm Patient Position: Sitting Pulse: 107 (!) 115 Resp: 16 16 Temp: 36.9 C (98.4 F) 37.2 C (99 F) TempSrc: Temporal SpO2: 98% 98% The patient presented with a chief complaint of with concern for abdominal pain. The differential diagnosis associated with this patient's presentation includes gastritis, gastroenteritis, cyclic vomiting syndrome. Our workup consisted of ordering/reviewing patient has chronic abdominal pain she has had multiple GI evaluations including gastric emptying study that I do not show any gastroparesis she is also hadEGD without major abnormalities noted. She was most recently admitted about 1 week ago with similarsymptoms at another facility and they discharged her with follow-up with pain management. She states only that works for her is morphine and Dilaudid although I do not believe this is an appropriate treatment course. Will start with Haldol, Bentyl, Toradol, fluids and check blood work. Patient's workup does show mild hypokalemia although similar to her baseline. Lipase within normal limits normal LFTs and no leukocytosis or acute anemia noted she was able to produce a urine sample does show ketones although no overt signs of infection noted. No emesis while in the emergency department and do not believe there is any further indication for admission at this time will be discharged Diagnoses as of 12/18/24 1158 Abdominal pain, generalized Diagnostic tests considered but not performed: External records reviewed: Diagnostics interpreted by me: Discussions with other clinicians: Chronic conditions impacting care: Social determinants of health affecting care: ED Medications managed: Medications sodium chloride 0.9 % bolus 1,000 mL (has no administration in time range) ketorolac (Toradol) injection 15 mg (has no administration in time range) dicyclomine (Bentyl) injection 20 mg (has no administration in time range) haloperidol lactate (Haldol) injection 2 mg (has no administration in time range) Prescription drugs considered: Disposition and plan: Generalized abdominal pain, nausea vomiting, discharge All diagnostic, treatment, and disposition decisions were made by myself in conjunction with the Resident/JAIRO. I also supervised farah portions of any procedures performed by the Resident/JAIRO. For all further details of the patient's emergency department visit, please see their documentation. (Comment: Please note this report has been produced using speech recognition software and may contain errors related to that system including errors in grammar, punctuation, and spelling, as well as words and phrases that may be inappropriate. If there are any questions or concerns please feel freeto contact the dictating provider for clarification.) Anthony Tobin MD [facility] Anthony Tobin MD 12/18/24 1159 [employer] Phone: 1(122) 203-140804-04-2025 NotePrem[facility]04-03-2025 NotePrem[facility]04-02-2025 NotePrem[facility] 12-07-2024 NotePrem[facility]04-01-2025 NotePrem[facility]03-31-2025 NotePrem[facility]03-31-2025 NoteHNO ID: [id number] Author: LISSA MICHEL RT(R) Service: ? Author Type: Technologist Type: Progress Notes Filed: 12/05/2024 11:52 Note Text: xray: chestPremier Health [facility]03-31-2025 [id number] (AGENT OF COVID- 19) RNA: Not detected INFLUENZA A RNA: Not detected INFLUENZA B RNA: Not detected RESPIRATORY SYNCYTIAL VIRUS (RSV) RNA: Not detectedPremier Health Miami Valley Hospital NorthComment on above:Performed By: #### [id number] ####[facility]CL[facility] [id number] [address] OF [id number] Telephone encounter Note* Telephone Encounter - Sophia Mir - 11/04/2024 12:23 PM EST Called and left voicemail for Patient's Mom ( Alternate Contact) asking she have Patient call our office at [phone] to discuss upcoming appointment. Sophia Mir [facility]02-28-2025 Miscellaneous Notes* Telephone Encounter - Sophia Mir - 11/04/2024 12:23 PM EST Called and left voicemail for Patient's Mom ( Alternate Contact) asking she have Patient call our office at [phone] to discuss upcoming appointment. Sophia Mir * Telephone Encounter - Sophia Mir - 11/04/2024 8:42 AM EST Patient is scheduled for consultation with Dr. Dominguez on 11/07/2024 for chronic pain. Upon chart review, Patient has a history of chronic abdominal pain. Dr. Dominguez only treats pain related to the spine. If Patient needs consultation for abdominal pain, she will need to reschedule with an appropriate Pain Management provider. Patient advised to call our office at [phone] to discuss. Appointment Center also called patient on 11/03/2024 3:39 PM advising Patient to call our office. Sophia Mir documented in this encounterBl[facility]ard [facility]02-28-2025 Telephone encounter Note * Telephone Encounter - Sophia Mir - 11/04/2024 8:42 AM EST Patient is scheduled for consultation with Dr. Dominguez on 11/07/2024 for chronic pain. Upon chart review, Patient has a history of chronic abdominal pain. Dr. Dominguez only treats pain related to the spine. If Patient needs consultation for abdominal pain, she will need to reschedule with an appropriate Pain Management provider. Patient advised to call our office at [phone] to discuss. Appointment Center also called patient on 11/03/2024 3:39 PM advising Patient to call our office. Sophia Mir [facility]02-08-2025 NotePrem[facility]02-08-2025 NoteHNO ID: [id number] Author: NOTE, INTERFACE, ? Service: ? Author Type: ? Type: Progress Notes Filed: 10/15/2024 02:45 Note Text: Epic Scheduled Downtime: 10/15/2024 1:00:00 AM to 10/15/2024 2:36:00 [facility]02-07-2025 NotePrem[facility]02-07-2025 Note [facility]02-06-2025 NotePrem[facility]02-06-2025 NotePrem[facility]02-05-2025 NotePrem[facility] 10-12-2024 NotePrem[facility]02-04-2025 NotePrem[facility]02-04-2025 NotePrem[facility]02-04-2025 NotePrem[facility]02-04-2025 NotePrem[facility]02-03-2025 Note [facility]02-02-2025 NotePrem[facility]02-01-2025 NotePrem[facility]01-31-2025 NotePrem[facility] 10-06-2024 NotePrem[facility] Health [facility]01-27-2025 NoteDischarge Instructions Discharge Summary [address] [address] [id number] 10/03/2024 Patient: ADDIS TORRES Sex: Female : 2000 Age: 24y Thank you for visiting [facility]. You have been evaluated today by Anjel Robert M.D. for the following condition(s): Principal Diagnosis Chronic abdominal pain of undetermined cause. Chronic abdominal pain of unknown cause. Hypokalemia. vomiting with hypovolemia. 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 [address] [phone] 10/03/2024 1 of 4 Discharge Instructions Patient: ADDIS TORRES Sex: Female : 2000 Age: 24y Thank you for visiting [facility]. You have been evaluated today by Anjel Robert M.D. for the following condition(s): Principal Diagnosis Chronic abdominal pain of undetermined cause. Chronic abdominal pain of unknown cause. Hypokalemia. vomiting with hypovolemia. ADDITIONAL INFORMATION Unknown Causes of Abdominal Pain (Female) The exact cause of your belly (abdominal) pain is not clear. This does not mean that this is something to worry about. Everyone likes to know the exact cause of the problem. But sometimes with belly pain, there is no clear-cut cause, and this could be a good thing. The good news is that your symptoms can be treated, and you will feel better. 2 of 4 Discharge Instructions Your condition does not seem serious now. But sometimes the signs of a serious problem may take more time to appear. For this reason, it is important for you to watch for any new symptoms, problems, or worsening of your condition. Over the next few days, the abdominal pain may come and go. Or it may be constant. Other common symptoms can include nausea and vomiting. Sometimes it can be difficult to tell if you feel nauseous. You may just feel bad and not connect that feeling to nausea. Constipation, diarrhea, and a fever may go along with the pain. The pain may continue even if treated correctly over the following days. Depending on how things go, sometimes the cause can become clear and may need more or different treatment. Additional evaluations, medicines, or tests may also be needed. Home care Your healthcare provider may prescribe medicine for pain, symptoms, or an infection. Follow the healthcare provider's instructions for taking these medicines. General care Rest as much as you can until your next exam. No strenuous activities. Try to find positions that ease discomfort. A small pillow placed on the abdomen may help relieve pain. Something warm on your abdomen (such as a heating pad) may help, but be careful not to burn yourself. Diet Don't force yourself to eat, especially if having cramps, vomiting, or diarrhea. Water is important so you don't get dehydrated. Soup may also be good. Sports drinks may also help, especially if they are not too acidic. Don't drink sugary drinks as this can make things worse. Take liquids in small amounts. Don't guzzle them. Caffeine sometimes makes the pain and cramping worse. Don't take dairy products if you have vomiting or diarrhea. Don't eat large amounts at a time. Wait a few minutes between bites. Eat a diet low in fiber (called a low-residue diet). Foods allowed include refined breads, white rice, fruit and vegetable juices without pulp, tender meats. These foods will pass more easily through the intestine. Don't have whole-grain foods, whole fruits and vegetables, meats, seeds and nuts, fried or fatty foods, dairy, alcohol and spicy foods until your symptoms go away. 3 of 4 Discharge Instructions Follow-up care Follow up with your healthcare provider, or as advised, if your pain does not begin to improve in the next 24 hours. Call 911 Call 911 if any of these occur: Trouble breathing Confusion Fainting or loss of consciousness Rapid heart rate Seizure When to seek medical advice Call your healthcare provider right away if any of these occur: Pain gets worse or moves to the right lower abdomen New or worsening vomiting or diarrhea Swelling of the abdomen Unable to pass stool for more than 3 days Fever of 100.4F (38C) or higher, or as directed by your healthcare provider. Blood in vomit or bowel movements (dark red or black color) Yellow color of eyes and skin (jaundice) Weakness, dizziness Chest, arm, back, neck, or jaw pain Unexpected vaginal bleeding or missed period Can't keep down liquids or water and you are getting dehydrated [address] [place], [place] [id number] Nurse Note* Miles Michelle RN - 09/28/2024 12:17 PM EST Went over discharge paperwork with pt at bedside. Pt was agreeable and understood. IV taken out. Ptgot self dressed and gathered own belongings. Pt declined transportation and walked self down to discharge with family member. [facility] [id number] Nurse Note* Miles Michelle RN - 09/28/2024 12:17 PM EST Went over discharge paperwork with pt at bedside. Pt was agreeable and understood. IV taken out. Ptgot self dressed and gathered own belongings. Pt declined transportation and walked self down to discharge with family member. * Bri Ayoub RN - 09/27/2024 6:30 PM EST Patient received about 10 meq of potassium but said it was burning to bad. Attempted to dilute withsaline at 50 ml/hr but she still said it was burning and made me stop the infusion. Physician notified. * Sandra Perez RN - 09/24/2024 9:23 PM EST Pt.'s IV is no longer working and is swelling around the site. Rapid tried cannulating patient twice via ultrasound and was unsuccessful. They will come back and retry. Patient is still refusing any PO meds. * Sandra Perez RN - 09/24/2024 8:57 PM EST Patient is refusing her meds because she it stating that the smell of the medication makes her vomit. Gave patient po Compazine to see if she will take her meds. * Svetlana Dalton RN - 09/20/2024 5:08 AM EST Pt transferred to room 4-B from [facility]. Pt alert and orient x4. CARBAJAL. Reports 10/10 abdominal pain.Toradol offered, but refused. Requesting Dilaudid for pain. [facility] sent message by secure chat. Awaiting response. * Holly Soto RN - 09/19/2024 12:06 PM EST Patient complaining of soreness when IV flushed, message Dr. Adames to see if needed new site. Alsowanted to get up date on plan for patient. Dr. Adames is unsure of plan, GI does not want to see patient at this time. Left message for rapid response for IV placement, as patient stated that the IV she has now was placed by ultra sound. * Khanh Carrera RN - 09/18/2024 6:33 AM EST Patient given Toradol 2x PRN for pain overnight. Patient when awake c/o 9-10/10 pain unrelieved by anything given to patient so far at current stay, including the morphine in the ED. Patient slept for several hours overnight without incident. No vomiting overnight. Patient began to c/o pain ~5 minutes after being woken up for AM labs and meds. Patient now walking up/down halls without difficulty. documented in this [facility]01-22-2025 Plan of care note* Care Plan - Miles Michelle RN - 09/28/2024 12:16 PM EST Problem: Knowledge Deficit Goal: Patient/family/caregiver demonstrates understanding of disease process, treatment plan, medications, and discharge instructions 09/28/2024 1216 by Miles Michelle RN Outcome: Adequate for Discharge 09/28/2024 1137 by Miles Michelle RN Outcome: Progressing Problem: Potential for Compromised Skin Integrity Goal: Skin Integrity is Maintained or Improved 09/28/2024 1216 by Miles Michelle RN Outcome: Adequate for Discharge 09/28/2024 1137 by Miles Michelle RN Outcome: Progressing Goal: Nutritional status is improving 09/28/2024 1216 by Miles Michelle RN Outcome: Adequate for Discharge 09/28/2024 1137 by Miles Michelle RN Outcome: Progressing Problem: Urinary Incontinence Goal: Perineal skin integrity is maintained or improved 09/28/2024 1216 by Miles Michelle RN Outcome: Adequate for Discharge 09/28/2024 1137 by Miles Michelle RN Outcome: Progressing Problem: Pain - Adult Goal: Verbalizes/displays adequate comfort level or baseline comfort level 09/28/2024 1216 by Miles Michelle RN Outcome: Adequate for Discharge 09/28/2024 1137 by Miles Michelle RN Outcome: Progressing Problem: Problem Interventions Goal: Assess Nutritional Intake 09/28/2024 1216 by Miles Michelle RN Outcome: Adequate for Discharge 09/28/2024 1137 by Miles Michelle RN Outcome: Progressing [id number] Miscellaneous Notes* Care Plan - Miles Michelle RN - 09/28/2024 12:16 PM EST Problem: Knowledge Deficit Goal: Patient/family/caregiver demonstrates understanding of disease process, treatment plan, medications, and discharge instructions 09/28/2024 1216 by Miles Michelle RN Outcome: Adequate for Discharge 09/28/2024 1137 by Miles Michelle RN Outcome: Progressing Problem: Potential for Compromised Skin Integrity Goal: Skin Integrity is Maintained or Improved 09/28/2024 1216 by Miles Michelle RN Outcome: Adequate for Discharge 09/28/2024 1137 by Miles Michelle RN Outcome: Progressing Goal: Nutritional status is improving 09/28/2024 1216 by Miles Michelle RN Outcome: Adequate for Discharge 09/28/2024 1137 by iMles Michelle RN Outcome: Progressing Problem: Urinary Incontinence Goal: Perineal skin integrity is maintained or improved 09/28/2024 1216 by Miles Michelle RN Outcome: Adequate for Discharge 09/28/2024 1137 by Miles Michelle RN Outcome: Progressing Problem: Pain - Adult Goal: Verbalizes/displays adequate comfort level or baseline comfort level 09/28/2024 1216 by Miles Michelle RN Outcome: Adequate for Discharge 09/28/2024 1137 by iMles Michelle RN Outcome: Progressing Problem: Problem Interventions Goal: Assess Nutritional Intake 09/28/2024 1216 by Miles Michelle RN Outcome: Adequate for Discharge 09/28/2024 1137 by Miles Michelle RN Outcome: Progressing * Care Plan - Miles Michelle RN - 09/28/2024 11:37 AM EST Problem: Knowledge Deficit Goal: Patient/family/caregiver demonstrates understanding of disease process, treatment plan, medications, and discharge instructions Outcome: Progressing Problem: Potential for Compromised Skin Integrity Goal: Skin Integrity is Maintained or Improved Outcome: Progressing Goal: Nutritional status is improving Outcome: Progressing Problem: Urinary Incontinence Goal: Perineal skin integrity is maintained or improved Outcome: Progressing Problem: Pain - Adult Goal: Verbalizes/displays adequate comfort level or baseline comfort level Outcome: Progressing Problem: Problem Interventions Goal: Assess Nutritional Intake Outcome: Progressing * Care Coordination - Nina Potts RN - 09/26/2024 10:24 AM EST Plan is home with partner, no anticipated DC needs seen by TCC at this time. Will follow. * Care Plan - Bri Ayoub RN - 09/26/2024 9:00 AM EST Problem: Knowledge Deficit Goal: Patient/family/caregiver demonstrates understanding of disease process, treatment plan, medications, and discharge instructions Outcome: Progressing Problem: Potential for Compromised Skin Integrity Goal: Skin Integrity is Maintained or Improved Outcome: Progressing Goal: Nutritional status is improving Outcome: Progressing Problem: Urinary Incontinence Goal: Perineal skin integrity is maintained or improved Outcome: Progressing Problem: Pain - Adult Goal: Verbalizes/displays adequate comfort level or baseline comfort level Outcome: Progressing Problem: Problem Interventions Goal: Assess Nutritional Intake Outcome: Progressing * Care Plan - Bri Ayoub RN - 09/25/2024 9:00 AM EST Problem: Knowledge Deficit Goal: Patient/family/caregiver demonstrates understanding of disease process, treatment plan, medications, and discharge instructions Outcome: Progressing Problem: Potential for Compromised Skin Integrity Goal: Skin Integrity is Maintained or Improved Outcome: Progressing Goal: Nutritional status is improving Outcome: Progressing Problem: Urinary Incontinence Goal: Perineal skin integrity is maintained or improved Outcome: Progressing Problem: Pain - Adult Goal: Verbalizes/displays adequate comfort level or baseline comfort level Outcome: Progressing Problem: Problem Interventions Goal: Assess Nutritional Intake Outcome: Progressing * Care Maya - Sandra Perez RN - 09/25/2024 2:53 AM EST Problem: Knowledge Deficit Goal: Patient/family/caregiver demonstrates understanding of disease process, treatment plan, medications, and discharge instructions Outcome: Progressing Problem: Potential for Compromised Skin Integrity Goal: Skin Integrity is Maintained or Improved Outcome: Progressing Goal: Nutritional status is improving Outcome: Progressing Problem: Urinary Incontinence Goal: Perineal skin integrity is maintained or improved Outcome: Progressing Problem: Pain - Adult Goal: Verbalizes/displays adequate comfort level or baseline comfort level Outcome: Progressing Problem: Problem Interventions Goal: Assess Nutritional Intake Outcome: Progressing * Care Plan - Bri Ayoub RN - 09/24/2024 8:00 AM EST Problem: Knowledge Deficit Goal: Patient/family/caregiver demonstrates understanding of disease process, treatment plan, medications, and discharge instructions Outcome: Progressing Problem: Potential for Compromised Skin Integrity Goal: Skin Integrity is Maintained or Improved Outcome: Progressing Goal: Nutritional status is improving Outcome: Progressing Problem: Urinary Incontinence Goal: Perineal skin integrity is maintained or improved Outcome: Progressing Problem: Pain - Adult Goal: Verbalizes/displays adequate comfort level or baseline comfort level Outcome: Progressing Problem: Problem Interventions Goal: Assess Nutritional Intake Outcome: Progressing * Care Plan - Chelsey Kirby RN - 09/22/2024 4:09 PM EST Problem: Potential for Compromised Skin Integrity Goal: Nutritional status is improving Outcome: Not Progressing Flowsheets (Taken 09/22/2024 1608) Nutritional status is improving: Monitor and assess patient for malnutrition (ex- brittle hair, bruises, dry skin, pale skin and conjunctiva, muscle wasting, smooth red tongue, and disorientation) Collaborate with interdisciplinary team and initiate plan and interventions as ordered Monitor patient's weight and dietary intake as ordered or per policy Utilize nutrition screening tool and intervene per policy Assist patient with eating Determine patient's food preferences and provide high-protein, high-caloric foods as appropriate Allow adequate time for meals Encourage patient to take dietary supplement as ordered Include patient/family/caregiver in decisions related to nutrition Collaborate with clinical outbound supervisor Problem: Pain - Adult Goal: Verbalizes/displays adequate comfort level or baseline comfort level Outcome: Not Progressing Flowsheets (Taken 09/22/2024 1608) Verbalizes/displays adequate comfort level or baseline comfort level: Encourage patient to monitor pain and request assistance Assess pain using appropriate pain scale Administer analgesics based on type and severity of pain and evaluate response Implement non-pharmacological measures as appropriate and evaluate response Consider cultural and social influences on pain and pain management Notify Licensed Independent Practitioner if interventions unsuccessful or patient reports new pain Problem: Problem Interventions Goal: Assess Nutritional Intake Outcome: Not Progressing * Care Plan - Anamaria Wong RN - 09/22/2024 4:39 AM EST Problem: Knowledge Deficit Goal: Patient/family/caregiver demonstrates understanding of disease process, treatment plan, medications, and discharge instructions Outcome: Progressing Problem: Potential for Compromised Skin Integrity Goal: Skin Integrity is Maintained or Improved Outcome: Progressing Goal: Nutritional status is improving Outcome: Progressing Problem: Urinary Incontinence Goal: Perineal skin integrity is maintained or improved Outcome: Progressing Problem: Pain - Adult Goal: Verbalizes/displays adequate comfort level or baseline comfort level Outcome: Progressing Problem: Problem Interventions Goal: Assess Nutritional Intake Outcome: Progressing * Care Plan - Hannah Macias RN - 09/21/2024 12:01 PM EST Problem: Knowledge Deficit Goal: Patient/family/caregiver demonstrates understanding of disease process, treatment plan, medications, and discharge instructions Outcome: Progressing Problem: Potential for Compromised Skin Integrity Goal: Skin Integrity is Maintained or Improved Outcome: Progressing Goal: Nutritional status is improving Outcome: Progressing Problem: Urinary Incontinence Goal: Perineal skin integrity is maintained or improved Outcome: Progressing Problem: Pain - Adult Goal: Verbalizes/displays adequate comfort level or baseline comfort level Outcome: Progressing Problem: Problem Interventions Goal: Assess Nutritional Intake Outcome: Progressing * Care Plan - Anamaria Wong RN - 09/21/2024 5:11 AM EST Problem: Knowledge Deficit Goal: Patient/family/caregiver demonstrates understanding of disease process, treatment plan, medications, and discharge instructions 09/21/2024 0511 by Anamaria Wong RN Outcome: Progressing 09/21/2024 0332 by Anamaria Wong RN Outcome: Progressing 09/21/2024 0332 by Anamaria Wong RN Outcome: Progressing Problem: Potential for Compromised Skin Integrity Goal: Skin Integrity is Maintained or Improved 09/21/2024 0511 by Anamaria Wong RN Outcome: Progressing 09/21/2024 0332 by Anamaria Wong RN Outcome: Progressing 09/21/2024 0332 by Anamaria Wong RN Outcome: Progressing Goal: Nutritional status is improving 09/21/2024 0511 by Anamaria Wong RN Outcome: Progressing 09/21/2024 0332 by Anamaria Wong RN Outcome: Progressing 09/21/2024 033 by Anamaria Wong RN Outcome: Progressing Problem: Potential for Compromised Skin Integrity Goal: Nutritional status is improving 09/21/2024 0511 by Anamaria Wong RN Outcome: Progressing 09/21/2024 0332 by Anamaria Wong RN Outcome: Progressing 09/21/2024 0332 by Anamaria Wong RN Outcome: Progressing Problem: Urinary Incontinence Goal: Perineal skin integrity is maintained or improved 09/21/2024 0511 by Anamaria Wong RN Outcome: Progressing 09/21/2024 033 by Anamaria Wong RN Outcome: Progressing 09/21/2024 033 by Anamaria Wong RN Outcome: Progressing * Care Plan - Anamaria Wong RN - 09/21/2024 3:33 AM EST Problem: Knowledge Deficit Goal: Patient/family/caregiver demonstrates understanding of disease process, treatment plan, medications, and discharge instructions 09/21/2024 033 by Anamaria Wong RN Outcome: Progressing 09/21/2024 033 by Anamaria Wong RN Outcome: Progressing Problem: Urinary Incontinence Goal: Perineal skin integrity is maintained or improved 09/21/2024 033 by Anamaria Wong RN Outcome: Progressing 09/21/2024 033 by Anamaria Wong RN Outcome: Progressing Problem: Pain - Adult Goal: Verbalizes/displays adequate comfort level or baseline comfort level 09/21/2024 033 by Anamaria Wong RN Outcome: Progressing 09/21/2024 033 by Anamaria Wong RN Outcome: Progressing * Care Plan - Hannah Macias RN - 09/20/2024 9:38 AM EST Problem: Knowledge Deficit Goal: Patient/family/caregiver demonstrates understanding of disease process, treatment plan, medications, and discharge instructions Outcome: Progressing Problem: Potential for Compromised Skin Integrity Goal: Skin Integrity is Maintained or Improved Outcome: Progressing Goal: Nutritional status is improving Outcome: Progressing Problem: Urinary Incontinence Goal: Perineal skin integrity is maintained or improved Outcome: Progressing Problem: Pain - Adult Goal: Verbalizes/displays adequate comfort level or baseline comfort level Outcome: Progressing Problem: Problem Interventions Goal: Assess Nutritional Intake Outcome: Progressing * Care Coordination - Nina Potts RN - 09/20/2024 8:20 AM EST Per surgery consult note, no surgery, do no recommend surgical feeding tube at this time, recommendpsych consult. TCC will follow. * Care Plan - Roland Smith RN - 09/20/2024 2:50 AM EST Problem: Knowledge Deficit Goal: Patient/family/caregiver demonstrates understanding of disease process, treatment plan, medications, and discharge instructions Outcome: Progressing Problem: Potential for Compromised Skin Integrity Goal: Skin Integrity is Maintained or Improved Outcome: Progressing Goal: Nutritional status is improving Outcome: Progressing * Care Coordination - Nina Potts RN - 09/19/2024 9:50 AM EST TCC completed chart review. Clear liquid diet. Plan is home. TCC will follow for needs. No anticipated DC needs seen. * Care Plan - Patience Velazco RN - 09/19/2024 1:23 AM EST Problem: Pain - Adult Goal: Verbalizes/displays adequate comfort level or baseline comfort level Outcome: Not Progressing Patient paces and stares until pain medication is given. Pain rating is 10/10 always. Problem: Knowledge Deficit Goal: Patient/family/caregiver demonstrates understanding of disease process, treatment plan, medications, and discharge instructions 09/19/2024122 by Patience Velazco RN Outcome: Progressing 09/18/20242200 by Patience Velazco RN Outcome: Progressing Problem: Potential for Compromised Skin Integrity Goal: Skin Integrity is Maintained or Improved 09/19/2024 012 by Patience Velazco RN Outcome: Progressing 09/18/20242200 by Patience Velazco RN Outcome: Progressing Goal: Nutritional status is improving 09/19/2024122 by Patience Velazco RN Outcome: Progressing 09/18/20242200 by Patience Velazco RN Outcome: not progressing Problem: Urinary Incontinence Goal: Perineal skin integrity is maintained or improved 09/19/2024122 by Patience Velazco RN Outcome: Progressing 09/18/20242200 by Patience Velazco RN Outcome: Progressing * Care Plan - Patience Velazco RN - 09/18/2024 10:01 PM EST Problem: Knowledge Deficit Goal: Patient/family/caregiver demonstrates understanding of disease process, treatment plan, medications, and discharge instructions Outcome: Progressing Problem: Potential for Compromised Skin Integrity Goal: Skin Integrity is Maintained or Improved Outcome: Progressing Goal: Nutritional status is improving Outcome: Progressing Problem: Urinary Incontinence Goal: Perineal skin integrity is maintained or improved Outcome: Progressing documented in this [facility]01-22-2025 [facility] 09-28-2024 Hospital course Narrative* Eduardo Rubin MD - 09/28/2024 11:45 AM EST Discharge Summary Addis Torres : 2000 ADMIT DATE: 09/17/2024 DISCHARGE DATE: 09/28/2024 PRIMARY CARE PHYSICIAN: No primary care provider on file. VISIT STATUS: Admission CODE STATUS: Full Code DISCHARGE DIAGNOSES: Principal Problem: Hypokalemia Active Problems: Severe malnutrition (CMS/HCC) (HCC) Nausea vomiting Chronic abnormal pain Concern for malingering Hypokalemia positive urine tox screen severe malnutrition Constipation Chronic issues-- Anxiety Hx Uterine Ca s/p TIARRA 2020 Depression PCOS THC abuse Migraines HOSPITAL COURSE: 24yof with PMHx of anxiety, depression, migraines, PCOS, prior endometrial adenocarcinoma s/p [facility] 2020, chronic abdominal pain with cyclic nausea and vomiting s/p multiple hospitalizations and extensive evaluation. Presented to [facility] ED on 09/17 with abdominal pain, nausea and vomiting. Recent workup included EGD with mild gastritis, normal gastric emptying study, multiple CT scans without acute findings. Had a HIDA that showed biliary dyskinesia and lap-ronak was completed on 08/11. Celiac plexus block then completed on 08/24. [place] tube placed at [facility] and pt vomited it out x2 - was noted to self-induce vomiting at [facility] leading to psych consult. She was afebrile, tachycardic, and normotensive in ED. K was 2.7. Gen surg evaluated and recommended against surgical feeding tube as pt was unable to tolerate post-pyloric feeds at [facility] and recommended psych consult for possible factitious disorder. Electrolytes corrected. Seen by psychiatry consult. Nausea improved with Zyprexa. Discussed with psychiatry okay for discharge home today. DC home follow-up with psychiatry and PCP discussed with patient and nursing staff and TCC SIGNIFICANT DIAGNOSTIC STUDIES: As above CONSULTANTS: Psychiatry, gastroenterology RECOMMENDED NEXT STEPS: As above DISCHARGE MEDICATIONS: Medication List START taking these medications OLANZapine zydis 5 MG disintegrating tablet Commonly known as: ZyPREXA Take 1 tablet (5 mg) by mouth Nightly for 15 days. CHANGE how you take these medications mirtazapine 15 MG tablet Commonly known as: Remeron Take 1 tablet (15 mg) by mouth Nightly. What changed: medication strength how much to take CONTINUE taking these medications pantoprazole 40 MG EC tablet Commonly known as: ProtoNix Take 1 tablet (40 mg) by mouth 2 times daily (before meals). Do not crush, chew, or split. ASK your doctor about these medications gabapentin 100 MG capsule Commonly known as: Neurontin Where to Get Your Medications These medications were sent to [facility] [place] [address] Hours: Thursday to Thursday 10 am to 6 pm mirtazapine 15 MG tablet OLANZapine zydis 5 MG disintegrating tablet DIET: Adult diet Regular ACTIVITY: No restriction. COMPLEXITY OF FOLLOW UP: [] Moderate Complexity: follow up within 7-14 calendar days (31074) [] Severe Complexity: follow up within 7 calendar days (00223) FOLLOW UP TESTING, PENDING RESULTS OR REFERRALS AT TRANSITIONAL CARE VISIT: [] Yes [] No PENDING STUDIES: DISPOSITION: Home FACILITY/HOME CARE AGENCY NAME: Follow up with Dr Rashid, psychiatrist Call pcp Call on INSTRUCTIONS TO MA/SW: Please call patient on day after discharge (must document patient contacted within 2 business days of discharge). FOLLOW UP QUESTIONS FOR MA/SW: 1. Did you get medications filled and taking them as instructed from discharge? 2. Are you following your discharge instructions from your hospital stay? 3. Please confirm patient is scheduled for a follow up appointment within the above time frame. DISCHARGE TIME: > 30 minutes SIGNED: Eduardo Rubin MD 09/28/2024, 11:45 AM documented in this [facility]01-22-2025 Hospital Discharge instructions* Discharge Instr - Activity* Eduardo Rubin MD - 09/28/2024 11:43 AM EST Up as able * Discharge Instr - Diet* Eduardo Rubin MD - 09/28/2024 11:43 AM EST Regular diet documented in this [facility]01-22-2025 Plan of care note* Care Plan - Miles Michelle RN - 09/28/2024 11:37 AM EST Problem: Knowledge Deficit Goal: Patient/family/caregiver demonstrates understanding of disease process, treatment plan, medications, and discharge instructions Outcome: Progressing Problem: Potential for Compromised Skin Integrity Goal: Skin Integrity is Maintained or Improved Outcome: Progressing Goal: Nutritional status is improving Outcome: Progressing Problem: Urinary Incontinence Goal: Perineal skin integrity is maintained or improved Outcome: Progressing Problem: Pain - Adult Goal: Verbalizes/displays adequate comfort level or baseline comfort level Outcome: Progressing Problem: Problem Interventions Goal: Assess Nutritional Intake Outcome: Progressing [id number] of Present illness Narrative* Eduardo Rubin MD - 09/28/2024 10:30 AM EST Hospitalist Progress Note 09/28/2024 10:30 AM [phone]: Please page me for patient care issues. [phone]: Please page [facility] night Hospitalist for any issues. Subjective: Admit Date: 09/17/2024 PCP: No primary care provider on file. Room#: [facility] B Interval History: 24yof with PMHx of anxiety, depression, migraines, PCOS, prior endometrial adenocarcinoma s/p TIARRA 2020, chronic abdominal pain with cyclic nausea and vomiting s/p multiple hospitalizations and extensive evaluation. Presented to [facility] ED on 09/17 with abdominal pain, nausea and vomiting. Recent workup included EGD with mild gastritis, normal gastric emptying study, multiple CT scans without acute findings. Had a HIDA that showed biliary dyskinesia and lap-ronak was completed on 08/11. Celiac plexus block then completed on 08/24. [place] tube placed at [facility] and pt vomited it out x2 - was noted to self-induce vomiting at [facility] leading to psych consult. She was afebrile, tachycardic, and normotensive in ED. K was 2.7. Gen surg evaluated and recommended against surgical feeding tube as pt was unable to tolerate post-pyloric feeds at [facility] and recommended psych consult for possible factitious disorder. K low and replacement ordered. Requested transfer to another medical service and then withdrewthat request after discussion with their team. 09/28 Patient seen and examined,No new event overnight Patient sleeping. Comfortable. Ambulating in the hallway. Not had bowel movement X-ray of the abdomen results reviewed nonobstructive bowel gas pattern reported Labs reviewed Discussed with nursing, case management Potassium 3.5 Past Medical History: Past Medical History: Diagnosis Date Anxiety Cancer (CMS/HCC) (HCC) s/p TIARRA 12/2020 with cervix removed and salpingectomy Depression Intraoperative ureteral injury Migraine PCOS (polycystic ovarian syndrome) Adult diet Regular @[id number]@ Medications: acetaminophen, 1,000 mg, IntraVENous, q8h cyclobenzaprine, 5 mg, Oral, TID gabapentin, 200 mg, Oral, TID mirtazapine, 15 mg, Oral, Nightly OLANZapine zydis, 5 mg, Oral, Daily pantoprazole, 40 mg, Oral, BID AC potassium chloride CR, 40 mEq, Oral, Once potassium chloride, 20 mEq, IntraVENous, Once LABS: CBC: Recent Labs 09/26/24 0154 09/27/24 0356 09/28/24 0458 WBC 4.4 5.5 4.6 RBC 4.19 4.22 4.47 HGB 10.7* 10.8* 11.5* HCT 33.8* 34.7* 35.9 MCV 80.7 82.2 80.3 RDW 15.9* 16.1* 15.9* PLT 135* 174 171 BMP: Recent Labs 09/26/24 0154 09/27/24 0356 09/28/24 0345 NA 137 136 137 K 3.3* 3.4* 3.5 CL 102 103 100 CO2 22 21* 21* BUN 3* 4* 3* CREATININE 0.63 0.62 0.68 GLUCOSE 76 78 80 CALCIUM 8.4 8.3* 9.0 ANIONGAP 13 12 16* LIVER PROFILE: Recent Labs 09/26/24 015 AST 27 ALT 43* BILITOT 0.4 ALKPHOS 56 PROT 6.0* PT/INR: No results for input(s): PROTIME, INR in the last 72 hours. CARDIAC ENZYMES: No results for input(s): TROPONINI in the last 72 hours. Procalcitonin: No results found for: PROCAL I reviewed: [x] laboratory results [x] radiographic results At the time of today's encounter. Pt was informed about the results. Objective: Vitals: BP 142/100 (BP Location: Right arm, Patient Position: Sitting) Pulse 106 Temp 36.9 C (98.5 F) (Temporal) Resp 14 Ht 5' 5 (1.651 m) Wt 195 lb 14.4 oz (88.9 kg) SpO2 95% BMI 32.60 kg/m Pulse Ox: SpO2 Av.5 % Min: 95 % Max: 98 % Supplemental O2: General appearance: No apparent distress, HEENT: Eyes: No scleral icterus No pallor Oral: Tongue is semi-moist Cardiovascular: S1S2 heard, RRR Respiratory: Clear to auscultation bilaterally Abdomen: Soft, non-tender, non-distended with normal bowel sounds. Musculoskeletal: No obvious deformities seen Skin: No visible rashes or lesions. Neurology- no focal neurology,Awake alert Extremity- no peripheral edema both lower extremities Assessment Acute problems-- Nausea vomiting Chronic abnormal pain Concern for malingering Hypokalemia positive urine tox screen severe malnutrition Constipation Chronic issues-- Anxiety Hx Uterine Ca s/p TIARRA 2020 Depression PCOS THC abuse Migraines Plan Patient evaluated by surgical team, recommended against surgical feeding tube psychiatric consult appreciated, following-on mirtazapine and Zyprexa for nausea and anxious mood-discussed with Dr. Rashid, patient to continue with current regimen and follow-up as outpatient On regular diet Potassium corrected Discussed with patient, DC home today follow-up with psychiatry, PCP and GI On Tylenol IV as needed On IV Toradol for 3 days As needed oxycodone Patient refusing bowel regimen as CHC's she feels sick she takes that X-ray of the abdomen ordered Delirium precautions Lovenox for DVT prophylaxis Labs ordered for AM Patient was informed about all work up and treatment plan Discussed with nursing staff Extended Emergency Contact Information Primary Emergency Contact: Moy Davey Mobile Relation: Partner Secondary Emergency Contact: Angelica Torres Relation: Parent Advance Directive: Full Code Anticipated Discharge - Date -09/28 - Location - Home - Pending the following -clinical course, psychiatry recommendations Total time spent (which include face to face and non face to face encounters) : 40 minutes Eduardo Rubin MD,MD Division of Hospitalist Medicine * Ghazala Acevedopranay, RD - 09/27/2024 3:23 PM EST Nutrition Assessment Type and Reason for Visit: Reassess Nutrition Recommendations/Plan: Pt meets ASPEN/AND criteria for malnutrition as indicated below -> acute on chronic Continue Adult diet Regular as tolerated Supplement(s): Continues to refuse all CBW obtained today 195.9# via zeroed bed scale, down 6# from SS wt 09/16/24 (2.9% x 1.5 weeks) ->significant for acute ON chronic severe malnutrition as indicated below Will continue to monitor labs, meds, po intakes and/or enteral nutrition tolerance, skin integrity,wt trends, and overall nutrition status - RD to follow weekly Malnutrition Assessment: Malnutrition Status: Severe malnutrition (Refer to RD assessment 09/16/24; 09/19/24) Context: Chronic Illness Malnutrition Assessment: Malnutrition Status: Severe malnutrition (acute on chronic) Context: Acute Illness Findings of the 6 clinical characteristics of malnutrition: Energy Intake: 50% or less of estimated energy requirements for 5 or more days Weight Loss: Greater than 2% over 1 week Body Fat Loss: (pt uncomfortable, deferred) Muscle Mass Loss: (pt uncomfortable, deferred) Fluid Accumulation: No significant fluid accumulation Supervisor [employer] Strength: Not Performed Interval History: 24yof with PMHx of anxiety, depression, migraines, PCOS, prior endometrial adenocarcinoma s/p TIARRA 2020, chronic abdominal pain with cyclic nausea and vomiting s/p multiple hospitalizations and extensive evaluation. Presented to [facility] ED on 09/17 with abdominal pain, nausea and vomiting. Recent workup included EGD with mild gastritis, normal gastric emptying study, multiple CT scans without acute findings. Had a HIDA that showed biliary dyskinesia and lap-ronak was completed on 08/11. Celiac plexus block then completed on 08/24. Corpak [place] tube placed at [facility] and pt vomited it out x2 - was noted to self-induce vomiting at [facility] leading to psych consult. She was afebrile, tachycardic, and normotensive in ED. K was 2.7. Gen surg evaluated and recommended against surgical feeding tube as pt was unable to tolerate post-pyloric feeds at [facility] and recommended psych consult for possible factitious disorder. K low and replacement ordered. Requested transfer to another medical service and then withdrewthat request after discussion with their team. 09/24 Seen and examined at bedside. Noted to be in distress because of pain. Already on iv tylenol and ivtoradol (step up to q6h from q8h) Increased prn oxycodone to 10 mg po q6h Endorsed having vomited yesternight - clear vomitus. No other acute medical complaints 09/25 Seen and examined at bedside. Endorsed acute distress due to abdominal pain. However she had been walking around the hallways without any signs of visible distress 15 minutes prior. Endorsed pain was somewhat better controlled but was still distressing. TO be on IV nsaid through today ( 72 hour course). No other acute medical complaints 09/26 Patient seen and examined,No new event overnight Patient tolerating p.o. lying comfortably in bed. Complains of abdominal pain when questioned. Refusing p.o. potassium requesting for IV Labs reviewed Discussed with nursing, case management Potassium 3.3 09/27 Patient seen and examined,No new event overnight Patient complaining of nausea, reporting emesis complains of abdominal pain when questioned. Refusing p.o. potassium requesting for IV Labs reviewed Discussed with nursing, case management Potassium 3.4 Nutrition Assessment: LOS# 7. RD following for malnutrition. Pt is observed at bedside hunched over in her bed. She states she has not eaten, threw up water again. She continues to decline ONS. States she tried water and threw up phlegm. Per primary, pt refusing bowel regimen as CHC's she feels sick she takes that. Abd x-ray ordered for constipation. I zeroed out the bed scale today and obtained wt of 195.9#. Continues mirtazapine and Zyprexa for nausea and anxious mood. Pain medication per primary. Per psych yesterday still reports nausea and problems with stomach emptying, says dairy supplements 'curdle' in stomach. Has ongoing LLQ pain, alleviated by walking, Adds that mother fell just before alexandra and sustained severe injuries, aunt after a acute respiratory arrest and prolonged response time (lived in [place] [facility]). On olanzapine without side effects, and feels mirtazapine helps withsleep. Nutrition Related Findings: Wound Type: None Isolation Status: No active isolations Food Allergies: NKFA Teeth: Missing teeth Room Service: Selective Sachin Scale Score: 20 Peripheral Vascular (WDL): Within Defined Limits Abdomen Inspection: Soft, Distended; Abdominal Tenderness: Tenderness Bowel Sounds (All Quadrants): Active; Passing Flatus: Yes Last BM Date: 09/18/24 (per patient recall) GI symptoms: Decreased appetite, Nausea, Vomiting, Abdominal Pain, and Constipation Nutrition History: Independent of feeding, Lives with SO at home, and cats (x17) Level of Consciousness: Alert Code Status, Oxygen Needs, Vital Signs, I/Os: Code Status: Full Code Oxygen Therapy: SpO2: 98 %; Oxygen Therapy: None (Room air) Vital Signs: Temp: 36.4 C (97.6 F); Heart Rate: 110; Resp: 16; BP: (!) 161/111; MAP (mmHg): 128 Net IO Since Admission: 3,331.25 mL [09/27/24 1541] No intake or output data in the 24 hours ending 09/27/24 1541 Labs/Meds Reviewed: acetaminophen, 1,000 mg, IntraVENous, q8h cyclobenzaprine, 5 mg, Oral, TID gabapentin, 200 mg, Oral, TID mirtazapine, 15 mg, Oral, Nightly OLANZapine zydis, 5 mg, Oral, Daily pantoprazole, 40 mg, Oral, BID AC potassium chloride CR, 40 mEq, Oral, Once potassium chloride, 20 mEq, IntraVENous, Once potassium chloride, 20 mEq, IntraVENous, Once BMP: Recent Labs 09/26/24 0154 09/27/24 0356 NA 137 136 K 3.3* 3.4* CL 102 103 CO2 22 21* BUN 3* 4* CREATININE 0.63 0.62 GLUCOSE 76 78 CALCIUM 8.4 8.3* MG 1.8 1.7 HEPATIC: Recent Labs 09/26/24 0154 AST 27 ALT 43* BILITOT 0.4 ALKPHOS 56 Current Nutrition Therapies: Adult diet Regular Current Oral Intake Average Meal Intake: Refusing to eat, 0% (threw up water) Average Supplements Intake: Refusing to take Anthropometric Measures: Height: 165.1 cm (5' 5) Current Body Weight: 88.9 kg (195 lb 14.4 oz) Weight Source: Bed Scale Admission Body Weight: 90.7 kg (200 lb) (from 09/17) Usual Body Weight: 118 kg (260 lb) (250-260# 3 mo ago per pt) % Weight Change (Calculated): -23.3 [place] Body Weight (lbs) (Calculated): 125 lbs [place] Body Weight (Kg) (Calculated): 57 kg % [place] Body Weight (Calculated): 159.5 % BMI (kg/m2) (Calculated): 32.6 Weight Adjustment For: No Adjustment BMI Categories: Obese Class 1 (BMI 30.0-34.9) BMI (Calculated): 32.6 Weight: 88.9 kg (195 lb 14.4 oz) Weight Method: Bed scale (bed scale was zeroed out) Weight History: Wt Readings from Last 5 Encounters: 09/27/24 88.9 kg (195 lb 14.4 oz) 09/16/24 91.2 kg (201 lb) 10/02/21 73 kg (161 lb) 09/25/21 75.8 kg (167 lb) 03/22/21 88 kg (194 lb) Nutrition Diagnosis: In context of chronic illness, Severe malnutrition related to pain, inadequate protein-energy intake as evidenced by weight loss 7.5% in 3 months, Criteria as identified in malnutrition assessment, lab values, GI abnormality, mild loss of subcutaneous fat, poor intake prior to admission, NPO or clear liquid status due to medical condition Severe malnutrition, In context of acute illness or injury related to psychological cause or life stress, pain, inadequate protein-energy intake as evidenced by intake 0-25%, weight loss greater thanor equal to 2% in 1 week Nutrition Interventions: Food and/or Nutrient Delivery: Continue Current Diet and Mineral Supplement Nutrition Education/Counseling: No recommendation at this time Coordination of Nutrition Care: Continue to monitor while inpatient Plan of Care discussed with: Patient and Spouse/Significant Other Goals: Previous Goal Met: No Progress toward Goal(s) Goals: PO intake 50% or greater, by next RD assessment Nutrition Monitoring and Evaluation: Behavioral-Environmental Outcomes: None Identified Food/Nutrient Intake Outcomes: Diet Advancement/Tolerance, Supplement Intake, Food and Nutrient Intake Physical Signs/Symptoms Outcomes: GI Status, Nausea or Vomiting, Constipation, Biochemical Data, Weight, Nutrition Focused Physical Findings, Meal Time Behavior Discharge Planning: Too soon to determine Ghazala Howard MS, RD, LD Contact: or ipadio Chat (dial *[phone] from hospital phone) * Eduardo Rubin MD - 09/27/2024 2:07 PM EST Hospitalist Progress Note 09/27/2024 2:08 PM [phone]: Please page me for patient care issues. [phone]: Please page [facility] night Hospitalist for any issues. Subjective: Admit Date: 09/17/2024 PCP: No primary care provider on file. Room#: N4-464/N4-464 B Interval History: 24yof with PMHx of anxiety, depression, migraines, PCOS, prior endometrial adenocarcinoma s/p TIARRA 2020, chronic abdominal pain with cyclic nausea and vomiting s/p multiple hospitalizations and extensive evaluation. Presented to [facility] ED on 09/17 with abdominal pain, nausea and vomiting. Recent workup included EGD with mild gastritis, normal gastric emptying study, multiple CT scans without acute findings. Had a HIDA that showed biliary dyskinesia and lap-ronak was completed on 08/11. Celiac plexus block then completed on 08/24. Corp[place] tube placed at [facility] and pt vomited it out x2 - was noted to self-induce vomiting at [facility] leading to psych consult. She was afebrile, tachycardic, and normotensive in ED. K was 2.7. Gen surg evaluated and recommended against surgical feeding tube as pt was unable to tolerate post-pyloric feeds at [facility] and recommended psych consult for possible factitious disorder. K low and replacement ordered. Requested transfer to another medical service and then withdrewthat request after discussion with their team. 09/27 Patient seen and examined,No new event overnight Patient complaining of nausea, reporting emesis complains of abdominal pain when questioned. Refusing p.o. potassium requesting for IV Labs reviewed Discussed with nursing, case management Potassium 3.4 Past Medical History: Past Medical History: Diagnosis Date Anxiety Cancer (CMS/HCC) (HCC) s/p [facility] 12/2020 with cervix removed and salpingectomy Depression Intraoperative ureteral injury Migraine PCOS (polycystic ovarian syndrome) Adult diet Regular @[id number]@ Medications: acetaminophen, 1,000 mg, IntraVENous, q8h cyclobenzaprine, 5 mg, Oral, TID gabapentin, 200 mg, Oral, TID mirtazapine, 15 mg, Oral, Nightly OLANZapine zydis, 5 mg, Oral, Daily pantoprazole, 40 mg, Oral, BID AC potassium chloride CR, 40 mEq, Oral, Once potassium chloride, 20 mEq, IntraVENous, Once potassium chloride, 20 mEq, IntraVENous, Once LABS: CBC: Recent Labs 09/25/24 0202 09/26/24 0154 09/27/24 0356 WBC 5.8 4.4 5.5 RBC 4.39 4.19 4.22 HGB 11.2* 10.7* 10.8* HCT 34.6* 33.8* 34.7* MCV 78.8 80.7 82.2 RDW 16.2* 15.9* 16.1* PLT 198 135* 174 BMP: Recent Labs 09/26/24 0154 09/27/24 0356 NA 137 136 K 3.3* 3.4* CL 102 103 CO2 22 21* BUN 3* 4* CREATININE 0.63 0.62 GLUCOSE 76 78 CALCIUM 8.4 8.3* ANIONGAP 13 12 LIVER PROFILE: Recent Labs 09/26/24 0154 AST 27 ALT 43* BILITOT 0.4 ALKPHOS 56 PROT 6.0* PT/INR: No results for input(s): PROTIME, INR in the last 72 hours. CARDIAC ENZYMES: No results for input(s): TROPONINI in the last 72 hours. Procalcitonin: No results found for: PROCAL I reviewed: [x] laboratory results [x] radiographic results At the time of today's encounter. Pt was informed about the results. Objective: Vitals: BP (!) 161/111 (BP Location: Right arm, Patient Position: Lying) Pulse 110 Temp 36.4 C (97.6 F) (Temporal) Resp 16 Ht 5' 5 (1.651 m) Wt 200 lb (90.7 kg) SpO2 98% BMI 33.28 kg/m Pulse Ox: SpO2 Av % Min: 98 % Max: 98 % Supplemental O2: General appearance: No apparent distress, HEENT: Eyes: No scleral icterus No pallor Oral: Tongue is semi-moist Cardiovascular: S1S2 heard, RRR Respiratory: Clear to auscultation bilaterally Abdomen: Soft, non-tender, non-distended with normal bowel sounds. Musculoskeletal: No obvious deformities seen Skin: No visible rashes or lesions. Neurology- no focal neurology,Awake alert Extremity- no peripheral edema both lower extremities Assessment Acute problems-- Nausea vomiting Chronic abnormal pain Concern for malingering Hypokalemia positive urine tox screen severe malnutrition Constipation Chronic issues-- Anxiety Hx Uterine Ca s/p TIARRA 2020 Depression PCOS THC abuse Migraines Plan Patient evaluated by surgical team, recommended against surgical feeding tube psychiatric consult appreciated, following-on mirtazapine and Zyprexa for nausea and anxious mood On regular diet Replace electrolytes On Tylenol IV as needed On IV Toradol for 3 days As needed oxycodone Patient refusing bowel regimen as CHC's she feels sick she takes that X-ray of the abdomen ordered Delirium precautions Lovenox for DVT prophylaxis Labs ordered for AM Patient was informed about all work up and treatment plan Discussed with nursing staff Extended Emergency Contact Information Primary Emergency Contact: Moy Davey Mobile Relation: Partner Secondary Emergency Contact: Angelica Torres Relation: Parent Advance Directive: Full Code Anticipated Discharge - Date -09/28 - Location - Home - Pending the following -clinical course, psychiatry recommendations Total time spent (which include face to face and non face to face encounters) : 40 minutes Eduardo Rubin MD,MD Division of Hospitalist Medicine * Manuel Rashid MD - 09/26/2024 11:59 AM EST Addis Torres is a 24 y.o. female Chief Complaint Patient presents with Abdominal Pain Patient c/o abd pain/nausea/vomiting x 3 months. Patient stating pain is now a 10/10. States the pain causes the nausea/vomiting. Patient currently a/o x 4. GCS 15. No distress noted. Patient seen and examind, still reports nausea and problems with stomach emptying, says dairy supplements curdle in stomach. Has ongoing LLQ pain, alleviated by walking, Adds that mother fell just before alexandra and sustained severe injuries, aunt after a acute respiratory arrest and prolonged response time (lived in [facility]) On olanzapine without side effects, and feels mirtazapine helps with sleep. Patient denies history of vomiting in childhood. acetaminophen, 1,000 mg, IntraVENous, q8h cyclobenzaprine, 5 mg, Oral, TID gabapentin, 200 mg, Oral, TID mirtazapine, 15 mg, Oral, Nightly OLANZapine zydis, 5 mg, Oral, Daily pantoprazole, 40 mg, Oral, BID AC potassium chloride, 40 mEq, Oral, Once potassium chloride CR, 40 mEq, Oral, Once potassium chloride, 20 mEq, IntraVENous, Once PRN medications: naloxone, oxyCODONE, polyethylene glycol (PEG) 3350, prochlorperazine OR prochlorperazine OR prochlorperazine Allergies Allergen Reactions Ceftriaxone Hives, Itching and Other Promethazine Vomiting Only Lactated Ringers Hives, Itching and Other reddness Review of Systems Constitutional: Positive for fatigue. Respiratory: Negative for cough and shortness of breath. Gastrointestinal: Positive for constipation, nausea and vomiting. Neurological: Negative for tremors and seizures. Psychiatric/Behavioral: Positive for dysphoric mood and sleep disturbance. Negative for suicidal ideas. Vitals: 09/25/24 0801 09/25/24 1215 09/25/24 2102 09/26/24 0729 BP: (!) 150/102 124/79 131/96 (!) 163/106 BP Location: Left arm Right arm Right arm Right arm Patient Position: Sitting Sitting Sitting Lying Pulse: 114 94 108 107 Resp: 18 16 16 Temp: 36.9 C (98.5 F) 36.8 C (98.2 F) 36.9 C (98.4 F) TempSrc: Temporal Temporal Temporal SpO2: 97% 96% 99% Weight: Height: Physical Exam Vitals reviewed. Constitutional: Appearance: Normal appearance. Cardiovascular: Rate and Rhythm: Normal rate. Pulmonary: Effort: Pulmonary effort is normal. Neurological: General: No focal deficit present. Mental Status: She is alert and oriented to person, place, and time. Mental status is at baseline. Psychiatric: Attention and Perception: She is attentive. She does not perceive auditory or visual hallucinations. Mood and Affect: Mood is anxious and depressed. Affect is blunt. Speech: Speech normal. Behavior: Behavior normal. Behavior is not agitated, aggressive or hyperactive. Thought Content: Thought content is not paranoid. Thought content does not include suicidal ideation. Cognition and Memory: Cognition is not impaired. She does not exhibit impaired recent memory. Judgment: Judgment is not impulsive or inappropriate. Recent Results (from the past 48 hours) CBC auto differential Collection Time: 09/25/24 2:02 AM Result Value Ref Range Auto WBC 5.8 3.6 - 10.7 10*3/uL RBC 4.39 3.80 - 5.20 10*6/uL Hemoglobin 11.2 (L) 11.7 - 16.0 g/dL Hematocrit 34.6 (L) 35.0 - 47.0 % MCV 78.8 77.0 - 99.0 fL MCH 25.5 (L) 26.0 - 34.0 pg MCHC 32.4 30.5 - 36.0 % RDW 16.2 (H) 11.5 - 15.0 % Platelets 198 140 - 440 10*3/uL MPV 10.6 9.0 - 12.7 fL nRBC 0.0 0.0 - 2.0 /100 WBCs Neutrophils Relative 62.1 38.0 - 82.0 % Lymphocytes Relative 24.7 15.0 - 45.0 % Monocytes Relative 11.2 5.0 - 13.0 % Eosinophils Relative 1.4 0.0 - 6.0 % Basophils Relative 0.3 0.0 - 2.0 % Immature Grans % 0.3 0.0 - 2.0 % Neutrophils Absolute 3.6 1.8 - 7.5 10*3/uL Lymphocytes Absolute 1.4 1.0 - 4.3 10*3/uL Monocytes Absolute 0.7 0.0 - 0.9 10*3/uL Eosinophils Absolute 0.1 0.0 - 0.5 10*3/uL Basophils Absolute 0.0 0.0 - 0.2 10*3/uL Immature Grans Absolute 0.0 <0.1 10*3/uL Comprehensive metabolic panel Collection Time: 09/26/24 1:54 AM Result Value Ref Range SODIUM 137 136 - 145 mmol/L POTASSIUM 3.3 (L) 3.5 - 5.1 mmol/L CHLORIDE 102 98 - 107 mmol/L CARBON DIOXIDE 22 22 - 29 mmol/L ANION GAP 13 3 - 13 mmol/L UREA NITROGEN 3 (L) 8 - 21 mg/dL CREATININE 0.63 0.57 - 1.11 mg/dL GLUCOSE 76 74 - 100 mg/dL CALCIUM 8.4 8.4 - 10.2 mg/dL AST (SGOT) 27 <34 U/L ALT 43 (H) <30 U/L ALKALINE PHOSPHATASE 56 40 - 150 U/L ALBUMIN 3.2 (L) 3.5 - 5.0 g/dL BILIRUBIN, TOTAL 0.4 <1.2 mg/dL TOTAL PROTEIN 6.0 (L) 6.4 - 8.3 g/dL eGFR >90.0 >60.0 mL/min/1.73m*2 CBC auto differential Collection Time: 09/26/24 1:54 AM Result Value Ref Range Auto WBC 4.4 3.6 - 10.7 10*3/uL RBC 4.19 3.80 - 5.20 10*6/uL Hemoglobin 10.7 (L) 11.7 - 16.0 g/dL Hematocrit 33.8 (L) 35.0 - 47.0 % MCV 80.7 77.0 - 99.0 fL MCH 25.5 (L) 26.0 - 34.0 pg MCHC 31.7 30.5 - 36.0 % RDW 15.9 (H) 11.5 - 15.0 % Platelets 135 (L) 140 - 440 10*3/uL MPV 10.7 9.0 - 12.7 fL IPF 2 MANUAL DIFFERENTIAL (CELLAVISION) Collection Time: 09/26/24 1:54 AM Result Value Ref Range RBC Morphology Normal Neutrophils % 66 38 - 82 % Lymphocytes % 27 15 - 45 % Monocytes % 5 5 - 13 % Eosinophils % 2 0 - 6 % Absolute Neutrophil Count 2.9 1.8 - 7.5 10*3/uL Lymphocytes Absolute 1.2 1.0 - 4.3 10*3/uL Monocytes Absolute 0.2 0.0 - 0.9 10*3/uL Eosinophils Absolute 0.1 0.0 - 0.5 10*3/uL Neutrophils Manual 65 Lymphocytes Manual 26 Monocytes Manual 5 Eosinophils Manual 2 (H) 0 - 1 Basophils Manual Bands Manual Metamyelocytes Manual Myelocytes Manual Promyelocytes Manual Blasts Manual Atypical Lymphocytes Manual Unclassified Cells, Manual Magnesium Collection Time: 09/26/24 1:54 AM Result Value Ref Range MAGNESIUM 1.8 1.6 - 2.6 mg/dL Assessment Psychological factors affecting medical condition Nausea, vomiting, abdominal pain Plan Agree with continued use of mirtazapine and addition of olanzapine for nausea and anxious mood. Will continue to follow. Support and reassurance offered to patient during our interview today. * Eduardo Rubin MD - 09/26/2024 11:06 AM EST Hospitalist Progress Note 09/26/2024 11:06 AM [phone]: Please page me for patient care issues. [phone]: Please page [facility] night Hospitalist for any issues. Subjective: Admit Date: 09/17/2024 PCP: No primary care provider on file. Room#: N4464/[id number] B Interval History: 24yof with PMHx of anxiety, depression, migraines, PCOS, prior endometrial adenocarcinoma s/p TIARRA 2020, chronic abdominal pain with cyclic nausea and vomiting s/p multiple hospitalizations and extensive evaluation. Presented to [facility] ED on 09/17 with abdominal pain, nausea and vomiting. Recent workup included EGD with mild gastritis, normal gastric emptying study, multiple CT scans without acute findings. Had a HIDA that showed biliary dyskinesia and lap-ronak was completed on 08/11. Celiac plexus block then completed on 08/24. [place] tube placed at [facility] and pt vomited it out x2 - was noted to self-induce vomiting at [facility] leading to psych consult. She was afebrile, tachycardic, and normotensive in ED. K was 2.7. Gen surg evaluated and recommended against surgical feeding tube as pt was unable to tolerate post-pyloric feeds at [facility] and recommended psych consult for possible factitious disorder. K low and replacement ordered. Requested transfer to another medical service and then withdrewthat request after discussion with their team. 09/26 Patient seen and examined,No new event overnight Patient tolerating p.o. lying comfortably in bed. Complains of abdominal pain when questioned. Refusing p.o. potassium requesting for IV Labs reviewed Discussed with nursing, case management Potassium 3.3 Past Medical History: Past Medical History: Diagnosis Date Anxiety Cancer (CMS/HCC) (HCC) s/p TIARRA 12/2020 with cervix removed and salpingectomy Depression Intraoperative ureteral injury Migraine PCOS (polycystic ovarian syndrome) Adult diet Regular @[id number]@ Medications: acetaminophen, 1,000 mg, IntraVENous, q8h cyclobenzaprine, 5 mg, Oral, TID gabapentin, 200 mg, Oral, TID mirtazapine, 15 mg, Oral, Nightly OLANZapine zydis, 5 mg, Oral, Daily pantoprazole, 40 mg, Oral, BID AC potassium chloride, 40 mEq, Oral, Once potassium chloride, 20 mEq, IntraVENous, Once LABS: CBC: Recent Labs 09/24/24 0609/25/24 0202 09/26/24 0154 WBC 5.5 5.8 4.4 RBC 4.47 4.39 4.19 HGB 11.4* 11.2* 10.7* HCT 34.9* 34.6* 33.8* MCV 78.1 78.8 80.7 RDW 16.2* 16.2* 15.9* PLT 201 198 135* BMP: Recent Labs 09/24/24 0622 09/26/24 0154 NA 134* 137 K 3.0* 3.3* CL 100 102 CO2 25 22 BUN <3* 3* CREATININE 0.58 0.63 GLUCOSE 86 76 CALCIUM 8.8 8.4 ANIONGAP 9 13 LIVER PROFILE: Recent Labs 09/24/24 0622 09/26/24 0154 AST 43* 27 ALT 75* 43* BILITOT 0.4 0.4 ALKPHOS 54 56 PROT 6.3* 6.0* PT/INR: No results for input(s): PROTIME, INR in the last 72 hours. CARDIAC ENZYMES: No results for input(s): TROPONINI in the last 72 hours. Procalcitonin: No results found for: PROCAL I reviewed: [x] laboratory results [x] radiographic results At the time of today's encounter. Pt was informed about the results. Objective: Vitals: BP (!) 163/106 (BP Location: Right arm, Patient Position: Lying) Pulse 107 Temp 36.9 C (98.4 F) (Temporal) Resp 16 Ht 5' 5 (1.651 m) Wt 200 lb (90.7 kg) SpO2 99% BMI 33.28 kg/m Pulse Ox: SpO2 Av.5 % Min: 96 % Max: 99 % Supplemental O2: General appearance: No apparent distress, HEENT: Eyes: No scleral icterus No pallor Oral: Tongue is semi-moist Cardiovascular: S1S2 heard, RRR Respiratory: Clear to auscultation bilaterally Abdomen: Soft, non-tender, non-distended with normal bowel sounds. Musculoskeletal: No obvious deformities seen Skin: No visible rashes or lesions. Neurology- no focal neurology,Awake alert Extremity- no peripheral edema both lower extremities Assessment Acute problems-- Nausea vomiting Chronic abnormal pain Concern for malingering Hypokalemia positive urine tox screen severe malnutrition Chronic issues-- Anxiety Hx Uterine Ca s/p TIARRA 2020 Depression PCOS THC abuse Migraines Plan Patient evaluated by surgical team, recommended against surgical feeding tube psychiatric consult appreciated, following-on mirtazapine and Zyprexa for nausea and anxious mood On regular diet Replace electrolytes On Tylenol IV as needed On IV Toradol for 3 days As needed oxycodone Delirium precautions Lovenox for DVT prophylaxis Labs ordered for AM Patient was informed about all work up and treatment plan Discussed with nursing staff Toxic drug monitoring/narrow therapeutic index drug monitoring : # Drug name : # Route administered : # Method of monitoring : Extended Emergency Contact Information Primary Emergency Contact: Moy Davey Mobile Relation: Partner Secondary Emergency Contact: BrianAngelica Relation: Parent Advance Directive: Full Code Anticipated Discharge - Date -09/27? - Location - Home - Pending the following -clinical course, psychiatry recommendations Total time spent (which include face to face and non face to face encounters) : 40 minutes Eduardo Rubin MD,MD Division of Hospitalist Medicine * Ebenezer Gongora MD - 09/25/2024 9:35 AM EST Hospitalist Progress Note 09/25/2024 Subjective: Admit Date: 09/17/2024 PCP: No primary care provider on file. Room#: N4464/N4-180 B BRIEF HOSPITAL COURSE: 24yof with PMHx of anxiety, depression, migraines, PCOS, prior endometrial adenocarcinoma s/p TIARRA 2020, chronic abdominal pain with cyclic nausea and vomiting s/p multiple hospitalizations and extensive evaluation. Presented to [facility] ED on 09/17 with abdominal pain, nausea and vomiting. Recent workup included EGD with mild gastritis, normal gastric emptying study, multiple CT scans without acute findings. Had a HIDA that showed biliary dyskinesia and lap-ronak was completed on 08/11. Celiac plexus block then completed on 08/24. Corp[place] tube placed at [facility] and pt vomited it out x2 - was noted to self-induce vomiting at [facility] leading to psych consult. She was afebrile, tachycardic, and normotensive in ED. K was 2.7. Gen surg evaluated and recommended against surgical feeding tube as pt was unable to tolerate post-pyloric feeds at [facility] and recommended psych consult for possible factitious disorder. K low and replacement ordered. Requested transfer to another medical service and then withdrewthat request after discussion with their team. Nausea continued Zyprexa 5mg x1 ordered to trial as antiemetic option. She felt that this was helpful. She was more agreeable to treatment options otherthan IV opiate pain medications and muscle relaxer and toradol added back on as well as IV tylenol. Please do not give IV pain medications unless no other options available - 09/24 Seen and examined at bedside. Noted to be in distress because of pain. Already on iv tylenol and ivtoradol (step up to q6h from q8h) Increased prn oxycodone to 10 mg po q6h Endorsed having vomited yesternight - clear vomitus. No other acute medical complaints 09/25 Seen and examined at bedside. Endorsed acute distress due to abdominal pain. However she had been walking around the hallways without any signs of visible distress 15 minutes prior. Endorsed pain was somewhat better controlled but was still distressing. TO be on IV nsaid through today ( 72 hour course). No other acute medical complaints Case and plan discussed with patient and bedside nurse. All questions answered. Awaiting BMP - monitor K levels Adult diet Regular 24HR INTAKE/OUTPUT: Intake/Output Summary (Last 24 hours) at 09/25/2024 0935 Last data filed at 09/25/2024 0539 Gross per 24 hour Intake 350 ml Output -- Net 350 ml Past Medical History: Past Medical History: Diagnosis Date Anxiety Cancer (CMS/HCC) (HCC) s/p TIARRA 12/2020 with cervix removed and salpingectomy Depression Intraoperative ureteral injury Migraine PCOS (polycystic ovarian syndrome) LABS: CBC: Recent Labs 09/23/24 0616 09/24/24 0622 09/25/24 0202 WBC 5.0 5.5 5.8 RBC 5.23* 4.47 4.39 HGB 13.2 11.4* 11.2* HCT 42.1 34.9* 34.6* MCV 80.5 78.1 78.8 RDW 16.3* 16.2* 16.2* PLT 207 201 198 BMP: Recent Labs 09/22/24 0946 09/23/24 0616 09/24/24 0622 NA 136 133* 134* K 3.3* 3.3* 3.0* CL 100 104 100 CO2 24 21* 25 BUN <3* <3* <3* CREATININE 0.75 0.66 0.58 GLUCOSE 98 104* 86 CALCIUM 9.1 9.2 8.8 ANIONGAP 12 8 9 LIVER PROFILE: Recent Labs 09/22/24 0946 09/23/24 0616 09/24/24 0622 AST 40* 45* 43* ALT 79* 79* 75* BILITOT 0.6 0.5 0.4 ALKPHOS 59 61 54 PROT 7.2 7.2 6.3* PT/INR: No results for input(s): PROTIME, INR in the last 72 hours. CARDIAC ENZYMES: No results for input(s): TROPONINI in the last 72 hours. Procalcitonin: No results found for: PROCAL COVID-19 PCR: No results for input(s): COVID19 in the last 72 hours. Objective: Vitals: BP (!) 150/102 (BP Location: Left arm, Patient Position: Sitting) Pulse 114 Temp 36.9 C(98.5 F) (Temporal) Resp 18 Ht 5' 5 (1.651 m) Wt 200 lb (90.7 kg) SpO2 97% BMI 33.28 kg/m Pulse Ox: SpO2 Av % Min: 97 % Max: 99 % Supplemental O2: Physical Exam Constitutional: Appearance: She is obese. HENT: Head: Normocephalic. Cardiovascular: Heart sounds: Normal heart sounds. Pulmonary: Effort: No respiratory distress. Abdominal: Endorsed extreme tenderness on mild palpation Neurological: Mental Status: She is alert and oriented to person, place, and time. Medications: Scheduled PRN acetaminophen, 1,000 mg, IntraVENous, q8h cyclobenzaprine, 5 mg, Oral, TID gabapentin, 200 mg, Oral, TID ketorolac, 15 mg, IntraVENous, 4 times per day mirtazapine, 15 mg, Oral, Nightly OLANZapine zydis, 5 mg, Oral, Daily pantoprazole, 40 mg, Oral, BID AC potassium chloride, 40 mEq, Oral, Once potassium chloride, 20 mEq, IntraVENous, Once PRN medications: naloxone, oxyCODONE, polyethylene glycol (PEG) 3350, prochlorperazine OR prochlorperazine OR prochlorperazine Continuous Assessment Acute, acute on chronic, unstable/uncontrolled chronic problems/diagnoses: Nausea and Vomiting Chronic Abdominal pain Concern for malingering Hypokalemia Positive THC on utox Severe malnutrition Stable chronic problems affecting care, new non-acute diagnoses: Anxiety Hx Uterine Ca s/p TIARRA 2020 Depression PCOS THC abuse Migraines Plan As a result of the above findings & factors, the following mgmt was pursued: - Gen surg evaluated - recommended against surgical feeding tube - Psych consulted - appreciate recs - Regular diet ordered - monitor K and replacew as needed - Zyprexa 5mg po x1 ordered - pt agreeable to continuing and found it helpful - Donnatol x1 ordered 09/20 and 09/21 (refused) - Flexaril ordered (refused initially then agreeable on 09/23) - Tylenol IV - IV toradol q6h scheduled x 3d starting 09/23 - prn oxycodone 10 po q6h - IV opiate pain medication stopped - no clinical indication and pt tolerating PO medications - am labs, replace lytes prn - PT/OT/CM/SW - delirium precautions: increase activity - DVT prophylaxis: enoxaparin and encourage ambulation Advance Directive: Full Code Anticipated Discharge - Date - 09/27? - Location - Home with Home Health Care - Pending the following - tolerating PO, pain /nausea control, Psych recs Total time spent (which include face to face and non face to face encounters) : 41 minutes Extended Emergency Contact Information Primary Emergency Contact: Moy Davey Mobile Relation: Partner Secondary Emergency Contact: Angelica Torres Relation: Parent Ebenezer Gongora MD Division of Hospitalist Medicine [facility] * Ebenezer Gongora MD - 09/24/2024 11:43 AM EST Hospitalist Progress Note 09/24/2024 Subjective: Admit Date: 09/17/2024 PCP: No primary care provider on file. Room#: N4-464/N4-464 B BRIEF HOSPITAL COURSE: 24yof with PMHx of anxiety, depression, migraines, PCOS, prior endometrial adenocarcinoma s/p TIARRA 2020, chronic abdominal pain with cyclic nausea and vomiting s/p multiple hospitalizations and extensive evaluation. Presented to [facility] ED on 09/17 with abdominal pain, nausea and vomiting. Recent workup included EGD with mild gastritis, normal gastric emptying study, multiple CT scans without acute findings. Had a HIDA that showed biliary dyskinesia and lap-ronak was completed on 08/11. Celiac plexus block then completed on 08/24. [place] tube placed at [facility] and pt vomited it out x2 - was noted to self-induce vomiting at [facility] leading to psych consult. She was afebrile, tachycardic, and normotensive in ED. K was 2.7. Gen surg evaluated and recommended against surgical feeding tube as pt was unable to tolerate post-pyloric feeds at [facility] and recommended psych consult for possible factitious disorder. K low and replacement ordered. Requested transfer to another medical service and then withdrewthat request after discussion with their team. Nausea continued Zyprexa 5mg x1 ordered to trial as antiemetic option. She felt that this was helpful. She was more agreeable to treatment options otherthan IV opiate pain medications and muscle relaxer and toradol added back on as well as IV tylenol. Please do not give IV pain medications unless no other options available - 09/24 Seen and examined at bedside. Noted to be in distress because of pain. Already on iv tylenol and ivtoradol (step up to q6h from q8h) Increased prn oxycodone to 10 mg po q6h Endorsed having vomited yesternight - colear vomitus. No other acute medical complaints Adult diet Regular 24HR INTAKE/OUTPUT: No intake or output data in the 24 hours ending 09/24/24 1143 Past Medical History: Past Medical History: Diagnosis Date Anxiety Cancer (CMS/HCC) (HCC) s/p TIARRA 12/2020 with cervix removed and salpingectomy Depression Intraoperative ureteral injury Migraine PCOS (polycystic ovarian syndrome) LABS: CBC: Recent Labs 09/22/24 0946 09/23/24 0616 09/24/24 06 WBC 8.1 5.0 5.5 RBC 4.99 5.23* 4.47 HGB 12.7 13.2 11.4* HCT 39.1 42.1 34.9* MCV 78.4 80.5 78.1 RDW 16.3* 16.3* 16.2* PLT 273 207 201 BMP: Recent Labs 09/22/24 0946 09/23/24 0616 09/24/24 0622 NA 136 133* 134* K 3.3* 3.3* 3.0* CL 100 104 100 CO2 24 21* 25 BUN <3* <3* <3* CREATININE 0.75 0.66 0.58 GLUCOSE 98 104* 86 CALCIUM 9.1 9.2 8.8 ANIONGAP 12 8 9 LIVER PROFILE: Recent Labs 09/22/24 0946 09/23/24 0616 09/24/24 0622 AST 40* 45* 43* ALT 79* 79* 75* BILITOT 0.6 0.5 0.4 ALKPHOS 59 61 54 PROT 7.2 7.2 6.3* PT/INR: No results for input(s): PROTIME, INR in the last 72 hours. CARDIAC ENZYMES: No results for input(s): TROPONINI in the last 72 hours. Procalcitonin: No results found for: PROCAL COVID-19 PCR: No results for input(s): COVID19 in the last 72 hours. Objective: Vitals: BP 144/91 Pulse 103 Temp 36.3 C (97.3 F) (Temporal) Resp 20 Ht 5' 5 (1.651 m) Wt200 lb (90.7 kg) SpO2 98% BMI 33.28 kg/m Pulse Ox: SpO2 Av.3 % Min: 98 % Max: 99 % Supplemental O2: Physical Exam Constitutional: Appearance: She is obese. HENT: Head: Normocephalic. Cardiovascular: Heart sounds: Normal heart sounds. Pulmonary: Effort: No respiratory distress. Abdominal: Palpations: Abdomen is soft. Neurological: Mental Status: She is alert and oriented to person, place, and time. Medications: Scheduled PRN acetaminophen, 1,000 mg, IntraVENous, q8h cyclobenzaprine, 5 mg, Oral, TID gabapentin, 200 mg, Oral, TID ketorolac, 15 mg, IntraVENous, 4 times per day mirtazapine, 15 mg, Oral, Nightly OLANZapine zydis, 5 mg, Oral, Daily pantoprazole, 40 mg, Oral, BID AC potassium chloride, 40 mEq, IntraVENous, Once potassium chloride, 20 mEq, IntraVENous, Once prochlorperazine, 5 mg, IntraVENous, Once PRN medications: naloxone, oxyCODONE, polyethylene glycol (PEG) 3350, prochlorperazine OR prochlorperazine OR prochlorperazine Continuous Assessment Acute, acute on chronic, unstable/uncontrolled chronic problems/diagnoses: Nausea and Vomiting Chronic Abdominal pain Concern for malingering Hypokalemia Positive THC on utox Severe malnutrition Stable chronic problems affecting care, new non-acute diagnoses: Anxiety Hx Uterine Ca s/p TIARRA 2020 Depression PCOS THC abuse Migraines Plan As a result of the above findings & factors, the following mgmt was pursued: - Gen surg evaluated - recommended against surgical feeding tube - Psych consulted - appreciate recs - Regular diet ordered - K low - IV replacement ordered - D5/half-normal x10 hours on 09/20 - D5/half-normal with Kcl 40meq ordered for 8 hours on 09/21 and then 12 hours on 09/22 and 09/23 - Zyprexa 5mg po x1 ordered - pt agreeable to continuing and found it helpful - Donnatol x1 ordered 09/20 and 09/21 (refused) - Flexaril ordered (refused initially then agreeable on 09/23) - Tylenol IV - IV toradol q6h scheduled x 3d starting 09/23 - prn oxycodone 10 po q6h - IV opiate pain medication stopped - no clinical indication and pt tolerating PO medications - am labs, replace lytes prn - PT/OT/CM/SW - delirium precautions: increase activity - DVT prophylaxis: enoxaparin and encourage ambulation Advance Directive: Full Code Anticipated Discharge - Date - 09/25 - Location - Home - Pending the following - tolerating PO, pain /nausea control Total time spent (which include face to face and non face to face encounters) : 44 minutes Extended Emergency Contact Information Primary Emergency Contact: Moy Davey Mobile Relation: Partner Secondary Emergency Contact: Angelica Torres Relation: Parent Ebenezer Gongora MD Division of Hospitalist Medicine [facility] * Ghazala Howard RD - 09/23/2024 4:59 PM EST Nutrition Assessment Type and Reason for Visit: Reassess Nutrition Recommendations/Plan: Continue Adult diet Regular as tolerated Supplement(s): Discontinued Vanilla Ensure Plus 1x/day (provides 350 kcals, 13 grams protein, 8 oz per serving) per MNT protocol and per patient request ONS is milky Pt declines alternate ONS, such as ensure juice, [employer], etc Fluid, vit/min replete per primary Frequently ambulating the hallways, states walking is the only thing that helps Will continue to monitor labs, meds, po intakes and/or enteral nutrition tolerance, skin integrity,wt trends, and overall nutrition status - RD to follow weekly Malnutrition Assessment: Malnutrition Status: Severe malnutrition (Refer to RD assessment 09/16/24; 09/19/24) Context: Chronic Illness Nutrition Assessment: LOS# 3. RD following for malnutrition. Psych and IM service following. Med adjustment noted, which includes start of remeron. GS rec'd against surgical feeding tube. Continues D5 IVF and regular ROSALIO.Pt has been observed x past few days on the unit walking up and down the halls repeatedly with her SO. I asked her on 09/21 how she was doing and she repeats terrible, they won't give me IV pain meds. States she is in chronic pain. She was seen ambulating on the unit's hallways yesterday and againtoday. After she returned to her room she is observed laying in bed curled over w/ her head towardsthe foot of the bed over a pillow. States she is in a lot of pain. I informed her I noted she was am bulating on the unit and able to move around, she states walking is the only thing that helps. States her IV pole battery so she returned to her room. She declines ensure, 3 in room not consumed. Says it's milky. Again declines ensure juice, [employer]. Declines all nutrition interventionsat this time. I discussed with her that she has had extensive imaging which have been benign and not able to explain her pain. She states I wish there was something wrong with me. I informed her that he UDS was + for THC and that cannaboid hyperemesis syndrome may be contributing to her GI sx. She states she has not used in months and says the only exposure she has had is second hand smoke fromher partner. I educated her that second had exposure would not yield a + UDS. Continues to deny use, states she stopped. SO states recreation drugs are locked away at home. Pt's SO says the ot has not consumed anything except water, which she has thrown up in the trash. Denies BM. Becomes emotionalduring visit stating she is in pain. Denies BM. POC d/w nsg. Nutrition Related Findings: Wound Type: None Isolation Status: No active isolations Food Allergies: NKFA Teeth: Missing teeth Room Service: Selective Sachin Scale Score: 21 Peripheral Vascular (WDL): Within Defined Limits Abdomen Inspection: Soft, Rounded; Abdominal Tenderness: Soft, Tenderness Bowel Sounds (All Quadrants): Active; Passing Flatus: Yes Last BM Date: 09/18/24 (per patient recall) GI symptoms: Decreased appetite, Nausea, Vomiting, and Abdominal Pain Nutrition History: Independent of feeding and Lives with spouse at home Level of Consciousness: Alert Code Status, Oxygen Needs, Vital Signs, I/Os: Code Status: Full Code Oxygen Therapy: SpO2: 98 %; Oxygen Therapy: None (Room air) Vital Signs: Temp: 36.6 C (97.9 F); Heart Rate: 105; Resp: 18; BP: 127/89; MAP (mmHg): 102 Net IO Since Admission: 2,281.25 mL [09/23/24 1723] Intake/Output Summary (Last 24 hours) at 09/23/2024 172 Last data filed at 09/22/2024 1747 Gross per 24 hour Intake 656.25 ml Output -- Net 656.25 ml Labs/Meds Reviewed: acetaminophen, 1,000 mg, IntraVENous, q8h cyclobenzaprine, 5 mg, Oral, TID gabapentin, 200 mg, Oral, TID ketorolac, 15 mg, IntraVENous, 3 times per day mirtazapine, 15 mg, Oral, Nightly [START ON 09/24/2024] OLANZapine zydis, 5 mg, Oral, Daily pantoprazole, 40 mg, Oral, BID AC dextrose 5 % and sodium chloride 0.45 % with KCl 40 mEq/L, 125 mL/hr, Last Rate: 125 mL/hr (09/23/24 1022) BMP: Recent Labs 09/21/2442709/22/24 0946 09/23/24 0616 NA 136 136 133* K 3.2* 3.3* 3.3* CL 105 100 104 CO2 20* 24 21* BUN <3* <3* <3* CREATININE 0.71 0.75 0.66 GLUCOSE 95 98 104* CALCIUM 8.8 9.1 9.2 MG 1.5* 2.2 2.0 HEPATIC: Recent Labs 09/21/2442709/22/24 0946 09/23/24 0616 AST 84* 40* 45* ALT 110* 79* 79* BILITOT 0.6 0.6 0.5 ALKPHOS 59 59 61 CBC: Recent Labs 09/21/2442709/22/24 0946 09/23/24 0616 WBC 5.2 8.1 5.0 HGB 12.2 12.7 13.2 HCT 38.1 39.1 42.1 MCV 80.2 78.4 80.5 PLT 248 273 207 Current Nutrition Therapies: Adult diet Regular Current Oral Intake Average Meal Intake: 0% (states only water) Average Supplements Intake: 0%, Refusing to take Dietary Orders (From admission, onward) Start Ordered 09/20/24 1026 Supplement:Dinner; Vanilla Ensure Plus Until discontinued Question Answer Comment Frequency Dinner Select supplement: Vanilla Ensure Plus Comment Patient does not like chocolate anything 09/20/24 1025 09/19/24 1027 Adult diet Regular Diet effective now Question: Diet type Answer: Regular 09/19/24 1026 Anthropometric Measures: Height: 165.1 cm (5' 5) Current Body Weight: 90.7 kg (200 lb) Weight Source: Standing Scale Admission Body Weight: 90.7 kg (200 lb) (from 09/17) Usual Body Weight: 118 kg (260 lb) (250-260# 3 mo ago per pt) % Weight Change (Calculated): -23.3 [place] Body Weight (lbs) (Calculated): 125 lbs [place] Body Weight (Kg) (Calculated): 57 kg % [place] Body Weight (Calculated): 159.5 % BMI (kg/m2) (Calculated): 33.3 Weight Adjustment For: No Adjustment BMI Categories: Obese Class 1 (BMI 30.0-34.9) BMI (Calculated): 33.28 Weight: 90.7 kg (200 lb) Weight Method: Standing scale Weight History: Wt Readings from Last 20 Encounters: 09/17/24 90.7 kg (200 lb) 09/16/24 91.2 kg (201 lb) 10/02/21 73 kg (161 lb) 09/25/21 75.8 kg (167 lb) 03/22/21 88 kg (194 lb) 03/14/21 86.6 kg (191 lb) 01/08/21 89.7 kg (197 lb 12.8 oz) 12/03/20 95.2 kg (209 lb 12.8 oz) 11/16/20 91.8 kg (202 lb 6.4 oz) 11/15/20 92.1 kg (203 lb) Nutrition Interventions: Food and/or Nutrient Delivery: Continue Current Diet, Mineral Supplement, IVF Delivery, and Discontinue Oral Nutrition Supplement Nutrition Education/Counseling: No recommendation at this time Coordination of Nutrition Care: Continue to monitor while inpatient Plan of Care discussed with: Patient, Nurse, and Spouse/Significant Other Goals: Previous Goal Met: No Progress toward Goal(s) Goals: PO intake 50% or greater, by next RD assessment Nutrition Monitoring and Evaluation: Behavioral-Environmental Outcomes: None Identified Food/Nutrient Intake Outcomes: Diet Advancement/Tolerance, Supplement Intake, Food and Nutrient Intake Physical Signs/Symptoms Outcomes: Weight, GI Status, Biochemical Data, Nutrition Focused Physical Findings, Nausea or Vomiting Discharge Planning: Too soon to determine Ghazala Howard MS, RD, LD Contact: or ipadio Chat (dial *[phone] from hospital phone) * Anderson Mendosa MD - 09/23/2024 6:54 AM EST Hospitalist Progress Note 09/23/2024 Subjective: Admit Date: 09/17/2024 PCP: No primary care provider on file. Room#: N4-464/N4-464 B BRIEF HOSPITAL COURSE: 24yof with PMHx of anxiety, depression, migraines, PCOS, prior endometrial adenocarcinoma s/p TIARRA 2020, chronic abdominal pain with cyclic nausea and vomiting s/p multiple hospitalizations and extensive evaluation. Presented to [facility] ED on 09/17 with abdominal pain, nausea and vomiting. Recent workup included EGD with mild gastritis, normal gastric emptying study, multiple CT scans without acute findings. Had a HIDA that showed biliary dyskinesia and lap-ronak was completed on 08/11. Celiac plexus block then completed on 08/24. [place] tube placed at [facility] and pt vomited it out x2 - was noted to self-induce vomiting at [facility] leading to psych consult. She was afebrile, tachycardic, and normotensive in ED. K was 2.7. Gen surg evaluated and recommended against surgical feeding tube as pt was unable to tolerate post-pyloric feeds at [facility] and recommended psych consult for possible factitious disorder. K low and replacement ordered. Requested transfer to another medical service and then withdrewthat request after discussion with their team. Nausea continued Zyprexa 5mg x1 ordered to trial as antiemetic option. She felt that this was helpful. She was more agreeable to treatment options otherthan IV opiate pain medications and muscle relaxer and toradol added back on as well as IV tylenol. Please do not give IV pain medications unless no other options available - Interval History: Pt seen and examined this morning. She reports that Zyprexa seemed to help her nausea and is open to this continuing. Also open to resuming Toradol and trial of muscle relaxer. Case and plan discussed with patient and bedside nurse. All questions answered. Adult diet Regular 24HR INTAKE/OUTPUT: Intake/Output Summary (Last 24 hours) at 09/23/2024 0654 Last data filed at 09/22/2024 1747 Gross per 24 hour Intake 656.25 ml Output -- Net 656.25 ml Past Medical History: Past Medical History: Diagnosis Date Anxiety Cancer (CMS/HCC) (HCC) s/p TIARRA 12/2020 with cervix removed and salpingectomy Depression Intraoperative ureteral injury Migraine PCOS (polycystic ovarian syndrome) LABS: CBC: Recent Labs 09/21/24 0428 09/22/24 0946 WBC 5.2 8.1 RBC 4.75 4.99 HGB 12.2 12.7 HCT 38.1 39.1 MCV 80.2 78.4 RDW 16.3* 16.3* PLT 248 273 BMP: Recent Labs 09/21/24 0428 09/22/24 0946 NA 136 136 K 3.2* 3.3* CL 105 100 CO2 20* 24 BUN <3* <3* CREATININE 0.71 0.75 GLUCOSE 95 98 CALCIUM 8.8 9.1 ANIONGAP 11 12 LIVER PROFILE: Recent Labs 09/21/24 0428 09/22/24 0946 AST 84* 40* ALT 110* 79* BILITOT 0.6 0.6 ALKPHOS 59 59 PROT 6.8 7.2 PT/INR: No results for input(s): PROTIME, INR in the last 72 hours. CARDIAC ENZYMES: No results for input(s): TROPONINI in the last 72 hours. Procalcitonin: No results found for: PROCAL COVID-19 PCR: No results for input(s): COVID19 in the last 72 hours. Objective: Vitals: BP 132/91 Pulse 98 Temp 36.8 C (98.3 F) (Temporal) Resp 18 Ht 5' 5 (1.651 m) Wt 200 lb (90.7 kg) SpO2 96% BMI 33.28 kg/m Pulse Ox: SpO2 Av % Min: 96 % Max: 98 % Supplemental O2: Physical Exam Vitals and nursing note reviewed. Constitutional: Appearance: Normal appearance. She is obese. HENT: Head: Normocephalic. Mouth/Throat: Mouth: Mucous membranes are moist. Eyes: Pupils: Pupils are equal, round, and reactive to light. Cardiovascular: Rate and Rhythm: Normal rate. Pulmonary: Effort: Pulmonary effort is normal. Abdominal: General: Bowel sounds are normal. Palpations: Abdomen is soft. Tenderness: There is no abdominal tenderness. Neurological: Mental Status: She is alert. Medications: Scheduled PRN acetaminophen, 1,000 mg, IntraVENous, q8h gabapentin, 200 mg, Oral, TID mirtazapine, 15 mg, Oral, Nightly pantoprazole, 40 mg, Oral, BID AC PRN medications: naloxone, oxyCODONE, polyethylene glycol (PEG) 3350, prochlorperazine OR prochlorperazine OR prochlorperazine Continuous Assessment Data: (CAT1) Reviewed 2 notes from different specialty or health system (each=1). (CAT1) Reviewed 2 labs/studies ordered by another provider not previously counted (each=1, panels count as 1). (LOW: 2x CAT1 or independent historian MOD: 3x CAT1 or 1x CAT3 EXTENSIVE: 3x CAT1 and 1x CAT3) Acute, acute on chronic, unstable/uncontrolled chronic problems/diagnoses: Nausea and Vomiting Chronic Abdominal pain Concern for malingering Hypokalemia Positive THC on utox Severe malnutrition Stable chronic problems affecting care, new non-acute diagnoses: Anxiety Hx Uterine Ca s/p TIARRA 2020 Depression PCOS THC abuse Migraines Plan As a result of the above findings & factors, the following mgmt was pursued: - Gen surg evaluated - recommended against surgical feeding tube - Psych consulted - appreciate recs - Regular diet ordered - K low - IV replacement ordered - D5/half-normal x10 hours on 09/20 - D5/half-normal with Kcl 40meq ordered for 8 hours on 09/21 and then 12 hours on 09/22 and 09/23 - Zyprexa 5mg po x1 ordered - pt agreeable to continuing and found it helpful - Donnatol x1 ordered 09/20 and 09/21 (refused) - Flexaril ordered (refused initially then agreeable on 09/23) - Tylenol IV - IV toradol q8h scheduled x 3d starting 09/23 - IV opiate pain medication stopped - no clinical indication and pt tolerating PO medications - am labs, replace lytes prn - PT/OT/CM/SW - delirium precautions: increase activity - DVT prophylaxis: enoxaparin and encourage ambulation Complexity: Chronic illness with mild to moderate exacerbation, progression, or side effect of tx (MOD). Multiple stable chronic illnesses (MOD). Risk: Prescription drug/IVF/colloid was initiated, discontinued, adjusted; or reviewed with decision to maintain current orders (MOD). Advance Directive: Full Code Anticipated Discharge - Date - 09/24-? - Location - Home - Pending the following - tolerating PO Total time spent (which include face to face and non face to face encounters) : 23 minutes Extended Emergency Contact Information Primary Emergency Contact: Moy Davey Mobile Relation: Partner Secondary Emergency Contact: TorresAngelica Relation: Parent Anderson Mendosa MD Division of Hospitalist Medicine [facility] * Anderson Mendosa MD - 09/22/2024 7:18 AM EST Hospitalist Progress Note 09/22/2024 Subjective: Admit Date: 09/17/2024 PCP: No primary care provider on file. Room#: N4-464/N4465 B BRIEF HOSPITAL COURSE: 24yof with PMHx of anxiety, depression, migraines, PCOS, prior endometrial adenocarcinoma s/p TIARRA 2020, chronic abdominal pain with cyclic nausea and vomiting s/p multiple hospitalizations and extensive evaluation. Presented to [facility] ED on 09/17 with abdominal pain, nausea and vomiting. Recent workup included EGD with mild gastritis, normal gastric emptying study, multiple CT scans without acute findings. Had a HIDA that showed biliary dyskinesia and lap-ronak was completed on 08/11. Celiac plexus block then completed on 08/24. [place] tube placed at [facility] and pt vomited it out x2 - was noted to self-induce vomiting at [facility] leading to psych consult. She was afebrile, tachycardic, and normotensive in ED. K was 2.7. Gen surg evaluated and recommended against surgical feeding tube as pt was unable to tolerate post-pyloric feeds at [facility] and recommended psych consult for possible factitious disorder. K low and replacement ordered. Requested transfer to another medical service and then withdrewthat request after discussion with their team. Nausea continued Zyprexa 5mg x1 ordered to trial as antiemetic option. Please do not give IV pain medications unless no other options available - would start with IV tylenol if IV option is needed and stopping PO tylenol. Interval History: Pt seen and examined this morning. Still having significant nausea and vomiting and little PO intake. D5/half-normal with K ordered again for today. Zyprexa PO x1 ordered for nausea this morning. If effective, will continue daily. Case and plan discussed with patient and bedside nurse. All questions answered. Adult diet Regular 24HR INTAKE/OUTPUT: Intake/Output Summary (Last 24 hours) at 09/22/2024 0719 Last data filed at 09/22/2024 0437 Gross per 24 hour Intake 100 ml Output -- Net 100 ml Past Medical History: Past Medical History: Diagnosis Date Anxiety Cancer (CMS/HCC) (HCC) s/p TIARRA 12/2020 with cervix removed and salpingectomy Depression Intraoperative ureteral injury Migraine PCOS (polycystic ovarian syndrome) LABS: CBC: Recent Labs 09/20/24 0413 09/21/24 0428 WBC 5.8 5.2 RBC 4.48 4.75 HGB 11.4* 12.2 HCT 35.9 38.1 MCV 80.1 80.2 RDW 16.3* 16.3* PLT 225 248 BMP: Recent Labs 09/20/24 0413 09/21/24 0428 NA 138 136 K 2.8* 3.2* CL 107 105 CO2 16* 20* BUN <3* <3* CREATININE 0.77 0.71 GLUCOSE 69* 95 CALCIUM 8.5 8.8 ANIONGAP 15* 11 LIVER PROFILE: Recent Labs 09/20/24 0413 09/21/24 0428 AST 46* 84* ALT 77* 110* BILITOT 0.5 0.6 ALKPHOS 52 59 PROT 6.2* 6.8 PT/INR: No results for input(s): PROTIME, INR in the last 72 hours. CARDIAC ENZYMES: No results for input(s): TROPONINI in the last 72 hours. Procalcitonin: No results found for: PROCAL COVID-19 PCR: No results for input(s): COVID19 in the last 72 hours. Objective: Vitals: BP (!) 158/112 Pulse 119 Temp 36.9 C (98.4 F) (Temporal) Resp 16 Ht 5' 5 (1.651 m) Wt 200 lb (90.7 kg) SpO2 98% BMI 33.28 kg/m Pulse Ox: SpO2 Av % Min: 98 % Max: 98 % Supplemental O2: Physical Exam Vitals and nursing note reviewed. Constitutional: Appearance: Normal appearance. She is obese. HENT: Head: Normocephalic. Mouth/Throat: Mouth: Mucous membranes are moist. Eyes: Pupils: Pupils are equal, round, and reactive to light. Cardiovascular: Rate and Rhythm: Normal rate. Pulmonary: Effort: Pulmonary effort is normal. Abdominal: General: Bowel sounds are normal. Palpations: Abdomen is soft. Tenderness: There is no abdominal tenderness. Neurological: Mental Status: She is alert. Medications: Scheduled PRN gabapentin, 200 mg, Oral, TID mirtazapine, 15 mg, Oral, Nightly pantoprazole, 40 mg, Oral, BID AC PRN medications: naloxone, oxyCODONE, polyethylene glycol (PEG) 3350, prochlorperazine OR prochlorperazine OR prochlorperazine Continuous Assessment Data: (CAT1) Reviewed 2 notes from different specialty or health system (each=1). (CAT1) Reviewed 2 labs/studies ordered by another provider not previously counted (each=1, panels count as 1). (LOW: 2x CAT1 or independent historian MOD: 3x CAT1 or 1x CAT3 EXTENSIVE: 3x CAT1 and 1x CAT3) Acute, acute on chronic, unstable/uncontrolled chronic problems/diagnoses: Nausea and Vomiting Chronic Abdominal pain Concern for malingering Hypokalemia Positive THC on utox Stable chronic problems affecting care, new non-acute diagnoses: Anxiety Hx Uterine Ca s/p TIARRA 2020 Depression PCOS THC abuse Migraines Plan As a result of the above findings & factors, the following mgmt was pursued: - Gen surg evaluated - recommended against surgical feeding tube - Psych consulted - appreciate recs - Regular diet ordered - K low - IV replacement ordered - D5/half-normal x10 hours on 09/20 - D5/half-normal with Kcl 40meq ordered for 8 hours on 09/21 and then 12 hours on 09/22 - Zyprexa 5mg po x1 ordered - Donnatol x1 ordered 09/20 and 09/21 (refused) - Flexaril ordered (refused) - Tylenol scheduled (refused) - IV pain medication stopped - no clinical indication and pt tolerating PO medications - am labs, replace lytes prn - PT/OT/CM/SW - delirium precautions: increase activity - DVT prophylaxis: enoxaparin and encourage ambulation Complexity: Chronic illness with mild to moderate exacerbation, progression, or side effect of tx (MOD). Multiple stable chronic illnesses (MOD). Risk: Prescription drug/IVF/colloid was initiated, discontinued, adjusted; or reviewed with decision to maintain current orders (MOD). Advance Directive: Full Code Anticipated Discharge - Date - 09/23-? - Location - Home - Pending the following - tolerating PO Total time spent (which include face to face and non face to face encounters) : 31 minutes Extended Emergency Contact Information Primary Emergency Contact: PetarMoy Mobile Relation: Partner Secondary Emergency Contact: Angelica Torres Relation: Parent Anderson Mendosa MD Division of Hospitalist Medicine [facility] * Bi Go DO - 09/21/2024 4:53 PM EST I came and spoke with the patient as she initially indicated she wanted a new primary service to take over. I did an extensive chart review. Additionally, I did an abdominal exam, which did not show any acute abdomen. There is no rebound tenderness. There is no guarding. She did not have tendernessat all when pressing fairly deep with a stethoscope. I told her that I agreed with Dr. Mendosa's assessment and plan and our plan for her would be to continue his assessment and plan. With that being said, she did ultimately decide to stay on Dr. Mendosa's primary service. * Madison Marsh DO - 09/21/2024 12:36 PM EST [facility] Consult Liaison Psychiatry - Progress Note IDENTIFYING INFORMATION Name: Addis Torres : 2000 ADMISSION DATE: 09/17/2024 3:04 PM TODAY'S DATE: 09/21/2024 CHIEF COMPLAINT: abdominal pain, nausea, vomiting Patient was seen and examined in person, chart/labs reviewed, case discussed with staff/team. HISTORY OF PRESENT ILLNESS Addis Torres is a 24 y.o. female currently medically admitted with consult liaison psychiatry following for anxiety due to abdominal pain with intractable nausea and vomiting. INTERVAL HISTORY Addis Torres presented sitting up and leaning forward in hospital bed with fiance at bedside. Addis reports abdominal pain and a rough night due to pain, nausea, and vomiting. Addis states that the only thing that provides her relief is IV opiates which have been discontinued in her ordersby primary team. We discussed alternatives to opiates such as anti nausea medicines and scheduled oral medications but she continued to state that everything makes her sick. She did ultimately share that walking also helps her pain but became tearful as she explained how tired her legs have become.Offered emotional support. Addis currently denies suicidal or homicidal ideation as well as auditory or visual hallucination. Patient is currently able to contract for safety and does not exhibit aggression. Addis has no other questions or concerns expressed at this time. CURRENT MEDICATIONS acetaminophen, 1,000 mg, Oral, q8h cyclobenzaprine, 5 mg, Oral, Once gabapentin, 200 mg, Oral, TID magnesium sulfate, 4,000 mg, IntraVENous, Once mirtazapine, 15 mg, Oral, Nightly pantoprazole, 40 mg, Oral, BID AC NLWUcfjtzskeu-nhdgfacbakh-xqcdeenm-scopoloamine, 2.5 mL, Oral, Once dextrose 5 % and sodium chloride 0.45 % with KCl 40 mEq/L, 125 mL/hr, Last Rate: 125 mL/hr (09/21/24 1136) PRN medications: naloxone, oxyCODONE, polyethylene glycol (PEG) 3350, prochlorperazine OR prochlorperazine OR prochlorperazine MENTAL STATUS EXAM 24 y.o. female presents dressed in hospital attire and appears casually groomed, ill. Makes fair eye contact. Speech is regular rate, rhythm, volume, and tone. No psychomotor disturbances observed. No abnormal involuntary movements observed. Regular gait which appears fluid and coordinated. Reportsmood as horrible and affect is constricted, anxious, irritable, congruent with stated mood and topics of conversation. Thought process is linear, coherent. Thought content is no obvious delusions, focused on pain . no suicidal ideations and no homicidal ideations. Concentration fair. Cognition and memory fair. Insight is fair and judgement is fair. BP (!) 145/103 Pulse (!) 128 Temp 37.4 C (99.3 F) (Temporal) Resp 20 Ht 1.651 m (5' 5) Wt 90.7 kg (200 lb) SpO2 98% BMI 33.28 kg/m RESULTS REVIEW Recent Results (from the past 24 hours) CBC auto differential Collection Time: 09/21/24 4:28 AM Result Value Ref Range Auto WBC 5.2 3.6 - 10.7 10*3/uL RBC 4.75 3.80 - 5.20 10*6/uL Hemoglobin 12.2 11.7 - 16.0 g/dL Hematocrit 38.1 35.0 - 47.0 % MCV 80.2 77.0 - 99.0 fL MCH 25.7 (L) 26.0 - 34.0 pg MCHC 32.0 30.5 - 36.0 % RDW 16.3 (H) 11.5 - 15.0 % Platelets 248 140 - 440 10*3/uL MPV 9.4 9.0 - 12.7 fL nRBC 0.0 0.0 - 2.0 /100 WBCs Neutrophils Relative 79.0 38.0 - 82.0 % Lymphocytes Relative 12.4 (L) 15.0 - 45.0 % Monocytes Relative 6.6 5.0 - 13.0 % Eosinophils Relative 1.2 0.0 - 6.0 % Basophils Relative 0.4 0.0 - 2.0 % Immature Grans % 0.4 0.0 - 2.0 % Neutrophils Absolute 4.1 1.8 - 7.5 10*3/uL Lymphocytes Absolute 0.6 (L) 1.0 - 4.3 10*3/uL Monocytes Absolute 0.3 0.0 - 0.9 10*3/uL Eosinophils Absolute 0.1 0.0 - 0.5 10*3/uL Basophils Absolute 0.0 0.0 - 0.2 10*3/uL Immature Grans Absolute 0.0 <0.1 10*3/uL Comprehensive metabolic panel Collection Time: 09/21/24 4:28 AM Result Value Ref Range SODIUM 136 136 - 145 mmol/L POTASSIUM 3.2 (L) 3.5 - 5.1 mmol/L CHLORIDE 105 98 - 107 mmol/L CARBON DIOXIDE 20 (L) 22 - 29 mmol/L ANION GAP 11 3 - 13 mmol/L UREA NITROGEN <3 (L) 8 - 21 mg/dL CREATININE 0.71 0.57 - 1.11 mg/dL GLUCOSE 95 74 - 100 mg/dL CALCIUM 8.8 8.4 - 10.2 mg/dL AST (SGOT) 84 (H) <34 U/L ALT 110 (H) <30 U/L ALKALINE PHOSPHATASE 59 40 - 150 U/L ALBUMIN 3.8 3.5 - 5.0 g/dL BILIRUBIN, TOTAL 0.6 <1.2 mg/dL TOTAL PROTEIN 6.8 6.4 - 8.3 g/dL eGFR >90.0 >60.0 mL/min/1.73m*2 Magnesium Collection Time: 09/21/24 4:28 AM Result Value Ref Range MAGNESIUM 1.5 (L) 1.6 - 2.6 mg/dL No orders to display 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 Patient does NOT require suicide precautions or 1:1 continuous monitoring at this time. Patient does maintain capacity to leave AMA at this time. If status for capacity becomes a concern,recommend re-assessing capacity based on standard evaluation. Continue admission to medical floor as determined by primary management team. Psychiatric medication management as follows: Continue Mirtazapine (Remeron) from 7.5 mg to 15 mg nightly for nausea and mood May consider utilizing suboxone for pain management and to minimize opiate withdrawal symptoms - would recommend starting with low dose such as sublingual (buprenorphine 2 mg/naloxone 0.5 mg) once daily Consult liaison psychiatry will continue to follow while patient is medically admitted. Verbal explanation of working diagnosis, signs and symptoms, and recommended course of treatment including risk/benefit information has been given to patient. This patient was staffed with attending physician, Dr. Rachid MD Upholsterer Helper, PGY-2 Cosigned by Manuel Rashid MD at 09/22/2024 4:33 PM EST Associated attestation - Manuel Rashid MD - 09/22/2024 4:33 PM EST I saw and evaluated the patient, participating in the farah portions of the service on 2024. I reviewed the resident s note. I agree with the resident s findings and plan. Manuel Rashid MD * Anderson Mendosa MD - 09/21/2024 6:56 AM EST Hospitalist Progress Note 09/21/2024 Subjective: Admit Date: 09/17/2024 PCP: No primary care provider on file. Room#: N4-464/[id number] B BRIEF HOSPITAL COURSE: 24yof with PMHx of anxiety, depression, migraines, PCOS, prior endometrial adenocarcinoma s/p TIARRA 2020, chronic abdominal pain with cyclic nausea and vomiting s/p multiple hospitalizations and extensive evaluation. Presented to [facility] ED on 09/17 with abdominal pain, nausea and vomiting. Recent workup included EGD with mild gastritis, normal gastric emptying study, multiple CT scans without acute findings. Had a HIDA that showed biliary dyskinesia and lap-ronak was completed on 08/11. Celiac plexus block then completed on 08/24. [place] tube placed at [facility] and pt vomited it out x2 - was noted to self-induce vomiting at [facility] leading to psych consult. She was afebrile, tachycardic, and normotensive in ED. K was 2.7. Gen surg evaluated and recommended against surgical feeding tube as pt was unable to tolerate post-pyloric feeds at [facility] and recommended psych consult for possible factitious disorder. K low and replacement ordered. Please do not give IV pain medications unless no other options available - would start with IV tylenol if IV option is needed and stopping PO tylenol. Interval History: Pt seen and examined at bedside. Pt up and walking around the unit. On entry into room, pt sat downon the floor and began rocking back and forth and crying and stating why won't you help me and give me IV pain meds. Explained at length that there is no clinical indication for IV pain medicationsand that we are working towards continuing to appropriately treat her nausea and abdominal discomfort. - Pain was not reproducible on examination while using stethoscope and listening while applying shallow and deep palpation, but significant reaction from patient occurred when palpating with gloved hand. Acidosis improved with IVF from yesterday. Mag and K replacement ordered for this morning. Pt refusing all oral medications. Reported that she was throwing up all night but was seen to be sleeping all throughout the night by nursing. Pt stated she wanted to be seen by a different medical team - facilitated conversation with pt and only other potential medical service (Med Team Attending)- after they informed her that they to would not be giving IV pain medications she opted to continue under my care. Case and plan discussed with patient and bedside nurse. All questions answered. Adult diet Regular 24HR INTAKE/OUTPUT: Intake/Output Summary (Last 24 hours) at 09/21/2024 0656 Last data filed at 09/21/2024 0331 Gross per 24 hour Intake 975 ml Output -- Net 975 ml Past Medical History: Past Medical History: Diagnosis Date Anxiety Cancer (CMS/HCC) (HCC) s/p TIARRA 12/2020 with cervix removed and salpingectomy Depression Intraoperative ureteral injury Migraine PCOS (polycystic ovarian syndrome) LABS: CBC: Recent Labs 09/19/2421309/20/2441209/21/24427 WBC 5.3 5.8 5.2 RBC 4.41 4.48 4.75 HGB 11.3* 11.4* 12.2 HCT 34.9* 35.9 38.1 MCV 79.1 80.1 80.2 RDW 16.5* 16.3* 16.3* PLT 234 225 248 BMP: Recent Labs 09/19/2421309/20/2441209/21/24427 NA 140 138 136 K 3.2* 2.8* 3.2* CL 111* 107 105 CO2 17* 16* 20* BUN <3* <3* <3* CREATININE 0.67 0.77 0.71 GLUCOSE 74 69* 95 CALCIUM 9.1 8.5 8.8 ANIONGAP 12 15* 11 LIVER PROFILE: Recent Labs 09/19/2421309/20/2441209/21/24427 AST 79* 46* 84* ALT 93* 77* 110* BILITOT 0.5 0.5 0.6 ALKPHOS 52 52 59 PROT 6.4 6.2* 6.8 PT/INR: No results for input(s): PROTIME, INR in the last 72 hours. CARDIAC ENZYMES: No results for input(s): TROPONINI in the last 72 hours. Procalcitonin: No results found for: PROCAL COVID-19 PCR: No results for input(s): COVID19 in the last 72 hours. Objective: Vitals: BP 138/87 (BP Location: Left arm, Patient Position: Sitting) Pulse 103 Temp 36.7 C (98.1 F) (Temporal) Resp 16 Ht 5' 5 (1.651 m) Wt 200 lb (90.7 kg) SpO2 95% BMI 33.28 kg/m Pulse Ox: SpO2 Av.5 % Min: 95 % Max: 96 % Supplemental O2: Physical Exam Vitals and nursing note reviewed. Constitutional: Appearance: Normal appearance. She is obese. HENT: Head: Normocephalic. Mouth/Throat: Mouth: Mucous membranes are moist. Eyes: Pupils: Pupils are equal, round, and reactive to light. Cardiovascular: Rate and Rhythm: Normal rate. Pulmonary: Effort: Pulmonary effort is normal. Abdominal: General: Bowel sounds are normal. Palpations: Abdomen is soft. Tenderness: There is abdominal tenderness (minimal LLQ). Neurological: Mental Status: She is alert. Medications: Scheduled PRN acetaminophen, 1,000 mg, Oral, q8h cyclobenzaprine, 5 mg, Oral, Once gabapentin, 200 mg, Oral, TID magnesium sulfate, 4,000 mg, IntraVENous, Once mirtazapine, 15 mg, Oral, Nightly pantoprazole, 40 mg, Oral, BID AC QKVEgtexaeimq-wpcvhxllimr-dldbpuwr-scopoloamine, 2.5 mL, Oral, Once PRN medications: naloxone, oxyCODONE, polyethylene glycol (PEG) 3350, prochlorperazine OR prochlorperazine OR prochlorperazine Continuous dextrose 5 % and sodium chloride 0.45 % with KCl 40 mEq/L, 125 mL/hr Assessment Data: (CAT1) Reviewed 2 notes from different specialty or health system (each=1). (CAT1) Reviewed 2 labs/studies ordered by another provider not previously counted (each=1, panels count as 1). (LOW: 2x CAT1 or independent historian MOD: 3x CAT1 or 1x CAT3 EXTENSIVE: 3x CAT1 and 1x CAT3) Acute, acute on chronic, unstable/uncontrolled chronic problems/diagnoses: Nausea and Vomiting Chronic Abdominal pain Concern for malingering Hypokalemia Positive THC on utox Stable chronic problems affecting care, new non-acute diagnoses: Anxiety Hx Uterine Ca s/p TIARRA 2020 Depression PCOS THC abuse Migraines Plan As a result of the above findings & factors, the following mgmt was pursued: - Gen surg evaluated - recommended against surgical feeding tube - Psych consulted - appreciate recs - Regular diet ordered - K low - IV replacement ordered - D5/half-normal x10 hours on 09/20 - D5/half-normal with Kcl 40meq ordered for 8 hours on 09/21 - Donnatol x1 ordered 09/20 and 09/21 (refused) - Flexaril ordered (refused) - Tylenol scheduled (refused) - IV pain medication stopped - no clinical indication and pt tolerating PO medications - am labs, replace lytes prn - PT/OT/CM/SW - delirium precautions: increase activity - DVT prophylaxis: enoxaparin and encourage ambulation Complexity: Chronic illness with mild to moderate exacerbation, progression, or side effect of tx (MOD). Multiple stable chronic illnesses (MOD). Risk: Prescription drug/IVF/colloid was initiated, discontinued, adjusted; or reviewed with decision to maintain current orders (MOD). Advance Directive: Full Code Anticipated Discharge - Date - 09/22-? - Location - Home - Pending the following - tolerating PO Total time spent (which include face to face and non face to face encounters) : 33 minutes Extended Emergency Contact Information Primary Emergency Contact: Moy Davey Mobile Relation: Partner Secondary Emergency Contact: Angelica Torres Relation: Parent Anderson Mendosa MD Division of Hospitalist Medicine [facility] * Anderson Mendosa MD - 09/20/2024 12:59 PM EST Hospitalist Progress Note 09/20/2024 Subjective: Admit Date: 09/17/2024 PCP: No primary care provider on file. Room#: N4-464/N4-464 B BRIEF HOSPITAL COURSE: 24yof with PMHx of anxiety, depression, migraines, PCOS, prior endometrial adenocarcinoma s/p TIARRA 2020, chronic abdominal pain with cyclic nausea and vomiting s/p multiple hospitalizations and extensive evaluation. Presented to [facility] ED on 09/17 with abdominal pain, nausea and vomiting. Recent workup included EGD with mild gastritis, normal gastric emptying study, multiple CT scans without acute findings. Had a HIDA that showed biliary dyskinesia and lap-ronak was completed on 08/11. Celiac plexus block then completed on 08/24. [place] tube placed at [facility] and pt vomited it out x2 - was noted to self-induce vomiting at [facility] leading to psych consult. She was afebrile, tachycardic, and normotensive in ED. K was 2.7. Gen surg evaluated and recommended against surgical feeding tube as pt was unable to tolerate post-pyloric feeds at [facility] and recommended psych consult for possible factitious disorder. K low and replacement ordered. Please do not give IV pain medications unless no other options available - would start with IV tylenol if IV option is needed and stopping PO tylenol. Interval History: Pt seen and examined this morning. Noted LLQ and discomfort. States she cannot tolerate many different foods because of gastroparesis. Discussed that her gastric emptying study was normal last month. Pt seemed to ignore this. Informed her that there is no clinical indication for IV pain medications and that if she does indeed have gastroparesis, that this would be further clinical indication toNOT receive IV pain medications. She was drinking from a cup when I entered the room and also endorsed being able to take pills. Pain regimen changed to PO only. Toradol stopped as she has received it on 5 consecutive days. PO x1 ordered. Scheduled tylenol added. [id number] x10h added.IV K replacement added. Psych consult pending. -- She did complain of pain overnight and overnight team added q4h PRN dilaudid - this was discontinued this morning. Case and plan discussed with patient and bedside nurse. All questions answered. Adult diet Regular 24HR INTAKE/OUTPUT: Intake/Output Summary (Last 24 hours) at 09/20/2024 1259 Last data filed at 09/19/2024 1923 Gross per 24 hour Intake -- Output 150 ml Net -150 ml Past Medical History: Past Medical History: Diagnosis Date Anxiety Cancer (CMS/HCC) (HCC) s/p TIARRA 12/2020 with cervix removed and salpingectomy Depression Intraoperative ureteral injury Migraine PCOS (polycystic ovarian syndrome) LABS: CBC: Recent Labs 09/18/2462009/19/2421309/20/243 WBC 5.6 5.3 5.8 RBC 4.14 4.41 4.48 HGB 10.5* 11.3* 11.4* HCT 32.7* 34.9* 35.9 MCV 79.0 79.1 80.1 RDW 16.0* 16.5* 16.3* PLT 230 234 225 BMP: Recent Labs 09/18/2462009/19/2421309/20/24 0413 NA 136 140 138 K 2.9* 3.2* 2.8* CL 107 111* 107 CO2 19* 17* 16* BUN <3* <3* <3* CREATININE 0.68 0.67 0.77 GLUCOSE 68* 74 69* CALCIUM 8.6 9.1 8.5 ANIONGAP 10 12 15* LIVER PROFILE: Recent Labs 09/18/24 0621 09/19/24 0214 09/20/24 0413 AST 38* 79* 46* ALT 30* 93* 77* BILITOT 0.4 0.5 0.5 ALKPHOS 45 52 52 PROT 5.8* 6.4 6.2* PT/INR: No results for input(s): PROTIME, INR in the last 72 hours. CARDIAC ENZYMES: No results for input(s): TROPONINI in the last 72 hours. Procalcitonin: No results found for: PROCAL COVID-19 PCR: No results for input(s): COVID19 in the last 72 hours. Objective: Vitals: BP 125/85 (BP Location: Left arm, Patient Position: Lying) Pulse 90 Temp 36.3 C (97.3 F) (Temporal) Resp 16 Ht 5' 5 (1.651 m) Wt 200 lb (90.7 kg) SpO2 96% BMI 33.28 kg/m Pulse Ox: SpO2 Av.8 % Min: 96 % Max: 100 % Supplemental O2: Physical Exam Vitals and nursing note reviewed. Constitutional: Appearance: Normal appearance. She is obese. HENT: Head: Normocephalic. Mouth/Throat: Mouth: Mucous membranes are moist. Eyes: Pupils: Pupils are equal, round, and reactive to light. Cardiovascular: Rate and Rhythm: Normal rate. Pulmonary: Effort: Pulmonary effort is normal. Abdominal: General: Bowel sounds are normal. Palpations: Abdomen is soft. Tenderness: There is abdominal tenderness (minimal LLQ). Neurological: Mental Status: She is alert. Medications: Scheduled PRN acetaminophen, 1,000 mg, Oral, q8h gabapentin, 200 mg, Oral, TID mirtazapine, 15 mg, Oral, Nightly pantoprazole, 40 mg, Oral, BID AC YYZVbgxmyeneu-xzbbbfypqrf-bojmkwqy-scopoloamine, 2.5 mL, Oral, Once potassium chloride, 40 mEq, IntraVENous, Once PRN medications: naloxone, oxyCODONE, polyethylene glycol (PEG) 3350, prochlorperazine OR prochlorperazine OR prochlorperazine Continuous dextrose 5 % and sodium chloride 0.45 %, 100 mL/hr Assessment Data: (CAT1) Reviewed 2 notes from different specialty or health system (each=1). (CAT1) Reviewed 2 labs/studies ordered by another provider not previously counted (each=1, panels count as 1). (LOW: 2x CAT1 or independent historian MOD: 3x CAT1 or 1x CAT3 EXTENSIVE: 3x CAT1 and 1x CAT3) Acute, acute on chronic, unstable/uncontrolled chronic problems/diagnoses: Nausea and Vomiting Chronic Abdominal pain Hypokalemia Positive THC on utox Stable chronic problems affecting care, new non-acute diagnoses: Anxiety Hx Uterine Ca s/p TIARRA 2020 Depression PCOS THC abuse Migraines Plan As a result of the above findings & factors, the following mgmt was pursued: - Gen surg evaluated - recommended against surgical feeding tube - Psych consulted - appreciate recs - Regular diet ordered - K low - IV replacement ordered - D5/half-normal x1 hours ordered - Donnatol x1 ordered - Tylenol scheduled - IV pain medication stopped - no clinical indication and pt tolerating PO medications - am labs, replace lytes prn - PT/OT/CM/SW - delirium precautions: increase activity - DVT prophylaxis: enoxaparin and encourage ambulation Complexity: Chronic illness with mild to moderate exacerbation, progression, or side effect of tx (MOD). Multiple stable chronic illnesses (MOD). Risk: Prescription drug/IVF/colloid was initiated, discontinued, adjusted; or reviewed with decision to maintain current orders (MOD). Advance Directive: Full Code Anticipated Discharge - Date - 09/21-? - Location - Home - Pending the following - tolerating PO Total time spent (which include face to face and non face to face encounters) : 33 minutes Extended Emergency Contact Information Primary Emergency Contact: PetarMoy Mobile Relation: Partner Secondary Emergency Contact: Angelica Torres Relation: Parent Anderson Mendosa MD Division of Hospitalist Medicine [facility] * Chika Adames MD - 09/19/2024 8:47 AM EST Hospitalist Progress Note 09/19/2024 Subjective: Admit Date: 09/17/2024 PCP: No primary care provider on file. Room#: E5-743/C4-724 A Brief Hospital course: Addis is a 24 y.o. female with past medical history below who presented to ED with chief complaint of nausea and chronic left abdominal pain. Patient presented again after discharge on 09/16 for intractable nausea and vomiting. This seems to be an ongoing issue for the last several months, she has been hospitalized multiple times and had extensive workup including a EGD with mild gastritis, normal gastric emptying study done, also witnessed in the past to be self inducing vomiting by putting fingers down her throat. She has chronic left abdominal pain as well. Workup in the ED was most notable for being afebrile, heart rate around 110, normal respirations, normotensive satting well on room air. Her labs were notable for potassium of 2.7. Admitted for further evaluation and management. EKG shows Sinus tachycardia, Borderline Q waves in inferior leads CT abdomen and pelvis on 09/15/2024 shows no acute process Started on Compazine for nausea/vomiting, pain medications as needed GI consulted again, discussed via secure chat who states all workup being done before multiple hospitals including last admission here and states nothing to offer additionally Consulted dietitian, seen the patient, Recommendations noted, discussed via secure chat General surgery consulted for possible enteral tube feeding, [facility] jejunal feeding tube placed,patient did not tolerate this and vomited twice, noted to self-induced vomiting while at [facility] and held off on placing GJ tube as patient was unable to tolerate postpyloric feeds. Recommends psychiatric consult, appreciated Psychiatry consulted Interval History: 09/19/2024-No overnight issues. Patient is seen and examined She is resting in her bed, just came back after a walk in the hallway, states she is little bit better with abdominal pain and nausea but feared of eating Labs reviewed potassium 3.2, replaced Case and plan discussed with patient and bedside nurse. All questions answered. Past Medical History: Past Medical History: Diagnosis Date Anxiety Cancer (CMS/HCC) (HCC) s/p TIARRA 12/2020 with cervix removed and salpingectomy Depression Intraoperative ureteral injury Migraine PCOS (polycystic ovarian syndrome) Adult diet Clear liquid 24HR INTAKE/OUTPUT: Intake/Output Summary (Last 24 hours) at 09/19/2024 0847 Last data filed at 09/19/2024 0522 Gross per 24 hour Intake 1000 ml Output 300 ml Net 700 ml LABS: CBC: Recent Labs 09/17/24175409/18/2462009/19/24213 WBC 5.8 5.6 5.3 RBC 4.85 4.14 4.41 HGB 12.5 10.5* 11.3* HCT 38.5 32.7* 34.9* MCV 79.4 79.0 79.1 RDW 15.9* 16.0* 16.5* PLT 276 230 234 BMP: Recent Labs 09/17/24175409/18/2462009/19/24213 NA 134* 136 140 K 2.7* 2.9* 3.2* CL 100 107 111* CO2 19* 19* 17* BUN <3* <3* <3* CREATININE 0.79 0.68 0.67 GLUCOSE 81 68* 74 CALCIUM 9.6 8.6 9.1 ANIONGAP 15* 10 12 LIVER PROFILE: Recent Labs 09/17/24175409/18/2462009/19/24213 AST 21 38* 79* ALT 30* 30* 93* BILITOT 0.4 0.4 0.5 ALKPHOS 55 45 52 PROT 7.6 5.8* 6.4 PT/INR: No results for input(s): PROTIME, INR in the last 72 hours. CARDIAC ENZYMES: No results for input(s): TROPONINI in the last 72 hours. Procalcitonin: No results found for: PROCAL COVID-19 PCR: No results for input(s): COVID19 in the last 72 hours. Objective: Vitals: BP 113/79 (BP Location: Right arm, Patient Position: Sitting) Pulse 91 Temp 37.2 C (98.9 F) (Temporal) Resp 16 Ht 5' 5 (1.651 m) Wt 200 lb (90.7 kg) SpO2 98% BMI 33.28 kg/m Pulse Ox: SpO2 Av % Min: 97 % Max: 99 % Supplemental O2: Physical Exam Constitutional: Appearance: She is obese. HENT: Head: Normocephalic and atraumatic. Mouth/Throat: Mouth: Mucous membranes are moist. Cardiovascular: Rate and Rhythm: Normal rate and regular rhythm. Pulmonary: Effort: Pulmonary effort is normal. Abdominal: Palpations: Abdomen is soft. Tenderness: There is abdominal tenderness. Skin: General: Skin is warm and dry. Neurological: Mental Status: She is alert. Psychiatric: Mood and Affect: Mood normal. Medications: Scheduled PRN mirtazapine, 7.5 mg, Oral, Nightly pantoprazole, 40 mg, Oral, BID AC PRN medications: acetaminophen OR acetaminophen, ketorolac, morphine sulfate, naloxone, polyethylene glycol (PEG) 3350, prochlorperazine OR prochlorperazine OR prochlorperazine Continuous Assessment Data: (CAT1) Reviewed 1 notes from different specialty or health system (each=1). (CAT1) Reviewed 3 or more labs/studies previously ordered by me not previously counted (each=1, panels count as 1). (CAT1) Ordered 3 or more new labs and/or studies (each=1, panels count as 1). (LOW: 2x CAT1 or independent historian MOD: 3x CAT1 or 1x CAT3 EXTENSIVE: 3x CAT1 and 1x CAT3) Acute, acute on chronic, unstable/uncontrolled chronic problems/diagnoses: Intractable nausea and vomiting Hypokalemia Positive for THC on U tox Stable chronic problems affecting care, new non-acute diagnoses: Anxiety Uterine cancer, status post TIARRA on 12/2020 with cervix removed and salpingectomy PCOS Depression THC abuse Migraine Plan As a result of the above findings & factors, the following mgmt was pursued: -GI consulted, discussed via secure chat who states all workup being done before multiple hospitalsincluding last admission here and states nothing to offer additionally -Likely due to cannabinoid hyperemesis syndrome versus gastritis versus malingering versus factitious disorder (patient denies THC use for 4 months but tox was still positive, patient has been witnessed in the past to be inducing vomiting by hand/fingers) -EGD - 07/2024 for the same complaints, negative gastric emptying scan 08/2024 -Continue with Compazine, pain medications as needed -Started on adult diet -General Surgery consulted, recommendations noted, appreciated -Dietitian consulted, seen the patient, appreciated -Psychiatry consulted - am labs, replace lytes prn - PT/OT/CM/SW - delirium precautions: increase activity, limit nighttime disturbances, and avoid anticholinergic meds, benzos, etc - DVT prophylaxis: encourage ambulation Complexity: Acute illness or injury posing a threat to life or body function (HIGH). Risk: Advance Directive: Full Code Anticipated Discharge - Date -1 to 3 days - Location - Home - Pending the following -clinical course, consult recommendations Total time spent (which include face to face and non face to face encounters) : 36.5 minutes Extended Emergency Contact Information Primary Emergency Contact: Moy Davey Mobile Relation: Partner Secondary Emergency Contact: Angelica Torres Relation: Parent Chika Adames MD Division of Hospital Medicine Inpatient Medical Services/[facility] * Chika Adames MD - 09/18/2024 9:43 AM EST Hospitalist Progress Note 09/18/2024 Subjective: Admit Date: 09/17/2024 PCP: No primary care provider on file. [facility]#: [facility] A Brief Hospital course: Addis is a 24 y.o. female with past medical history below who presented to ED with chief complaint of nausea and chronic left abdominal pain. Patient presented again after discharge on 09/16 for intractable nausea and vomiting. This seems to be an ongoing issue for the last several months, she has been hospitalized multiple times and had extensive workup including a EGD with mild gastritis, normal gastric emptying study done, also witnessed in the past to be self inducing vomiting by putting fingers down her throat. She has chronic left abdominal pain as well. Workup in the ED was most notable for being afebrile, heart rate around 110, normal respirations, normotensive satting well on room air. Her labs were notable for potassium of 2.7. Admitted for further evaluation and management. EKG shows Sinus tachycardia, Borderline Q waves in inferior leads CT abdomen and pelvis on 09/15/2024 shows no acute process Started on Compazine for nausea/vomiting, pain medications as needed GI consulted again Interval History: 09/18/2024-No overnight issues. Patient is seen and examined She is sitting in her bed, appears to be in pain and feeling nauseous Boyfriend is at bedside who states patient has not been eating for several days Labs reviewed potassium 2.9, replaced Case and plan discussed with patient and bedside nurse. All questions answered. Past Medical History: Past Medical History: Diagnosis Date Anxiety Cancer (CMS/HCC) (HCC) s/p TIARRA 12/2020 with cervix removed and salpingectomy Depression Intraoperative ureteral injury Migraine PCOS (polycystic ovarian syndrome) Adult diet Regular 24HR INTAKE/OUTPUT: No intake or output data in the 24 hours ending 09/18/24 0943 LABS: CBC: Recent Labs 09/16/24 0649 09/17/24 17509/18/24 06 WBC 6.2 5.8 5.6 RBC 4.21 4.85 4.14 HGB 10.9* 12.5 10.5* HCT 34.5* 38.5 32.7* MCV 81.9 79.4 79.0 RDW 16.3* 15.9* 16.0* PLT 249 276 230 BMP: Recent Labs 09/16/2449 09/17/24175409/18/24620 NA 138 134* 136 K 3.1* 2.7* 2.9* CL 109* 100 107 CO2 19* 19* 19* BUN <3* <3* <3* CREATININE 0.58 0.79 0.68 GLUCOSE 74 81 68* CALCIUM 8.3* 9.6 8.6 ANIONGAP 10 15* 10 LIVER PROFILE: Recent Labs 09/16/2449 09/17/24175409/18/24620 AST 18 21 38* ALT 22 30* 30* BILITOT 0.3 0.4 0.4 ALKPHOS 45 55 45 PROT 5.9* 7.6 5.8* PT/INR: No results for input(s): PROTIME, INR in the last 72 hours. CARDIAC ENZYMES: No results for input(s): TROPONINI in the last 72 hours. Procalcitonin: No results found for: PROCAL COVID-19 PCR: No results for input(s): COVID19 in the last 72 hours. Objective: Vitals: BP 133/91 (BP Location: Right arm, Patient Position: Lying) Pulse 98 Temp 36.5 C (97.7 F) (Temporal) Resp 20 Ht 5' 5 (1.651 m) Wt 200 lb (90.7 kg) SpO2 97% BMI 33.28 kg/m Pulse Ox: SpO2 Av % Min: 97 % Max: 100 % Supplemental O2: Physical Exam Constitutional: Appearance: She is obese. HENT: Head: Normocephalic and atraumatic. Mouth/Throat: Mouth: Mucous membranes are moist. Cardiovascular: Rate and Rhythm: Regular rhythm. Tachycardia present. Pulmonary: Effort: Pulmonary effort is normal. Abdominal: Palpations: Abdomen is soft. Tenderness: There is abdominal tenderness. Skin: General: Skin is warm and dry. Neurological: Mental Status: She is alert. Psychiatric: Mood and Affect: Mood normal. Medications: Scheduled PRN mirtazapine, 7.5 mg, Oral, Nightly pantoprazole, 40 mg, Oral, BID AC potassium chloride CR, 40 mEq, Oral, Once PRN medications: acetaminophen OR acetaminophen, ketorolac, polyethylene glycol (PEG) 3350, prochlorperazine OR prochlorperazine OR prochlorperazine Continuous Assessment Data: (CAT1) Reviewed 2 notes from different specialty or health system (each=1). (CAT1) Reviewed 3 or more labs/studies ordered by another provider not previously counted (each=1, panels count as 1). (CAT1) Ordered 3 or more new labs and/or studies (each=1, panels count as 1). (LOW: 2x CAT1 or independent historian MOD: 3x CAT1 or 1x CAT3 EXTENSIVE: 3x CAT1 and 1x CAT3) Acute, acute on chronic, unstable/uncontrolled chronic problems/diagnoses: Intractable nausea and vomiting Hypokalemia Positive THC on U tox Stable chronic problems affecting care, new non-acute diagnoses: Anxiety Uterine cancer, status post TIARRA on 12/2020 with cervix removed and salpingectomy PCOS Depression THC abuse Migraine Plan As a result of the above findings & factors, the following mgmt was pursued: -GI consulted -Likely due to cannabinoid hyperemesis syndrome versus gastritis versus malingering versus factitious disorder (patient denies THC use for 4 months but tox was still positive, patient has been witnessed in the past to be inducing vomiting by hand/fingers) -EGD - 07/2024 for the same complaints, negative gastric emptying scan 08/2024 -Continue with Compazine, pain medications as needed -Started on clear liquids - am labs, replace lytes prn - PT/OT/CM/SW - delirium precautions: increase activity, limit nighttime disturbances, and avoid anticholinergic meds, benzos, etc - DVT prophylaxis: encourage ambulation Complexity: Acute illness or injury posing a threat to life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 Initial, Consult (Sachin) Nutrition Recommendations/Plan: Patient meets criteria for SEVERE MALNUTRITION Continue Regular Diet If poor PO intake continues recommend initiating EN, noting surgery does not recommend placement atthis time. 2. Per MNT protocol, begin Ensure Plus one time daily to trial 3. RN to maintain strict I/Os and daily weights 4. RDN to continue to monitor weekly: fluid accumulation, weight, skin integrity, trends in lab values, ability to meet >75% estimated needs via PO and ONS, improvement in clinical status, discharge planning. Malnutrition Assessment: Malnutrition Status: Severe malnutrition Context: Chronic Illness Findings of the 6 clinical characteristics of malnutrition: Energy Intake: 75% or less estimated energy requirements for 1 month or longer Weight Loss: Greater than 7.5% over 3 months Body Fat Loss: Mild body fat loss Orbital Muscle Mass Loss: Unable to assess Fluid Accumulation: Unable to assess Supervisor [employer] Strength: Not Performed Nutrition Assessment: Addis is a 24 y.o. female with past medical history below who presented to ED with chief complaint of nausea and chronic left abdominal pain. Patient presented again after discharge on 09/16 for intractable nausea and vomiting. This seems to be an ongoing issue for the last several months, she has been hospitalized multiple times and had extensive workup including a EGD with mild gastritis, normal gastric emptying study done, also witnessed in the past to be self inducing vomiting by putting fingers down her throat. She has chronic left abdominal pain as well. Workup in the ED was most notable for being afebrile, heart rate around 110, normal respirations, normotensive satting well on room air. Her labs were notable for potassium of 2.7. Boyfriend at bedside stating pt has not been eating well for several days. Patient reports poor PO intake for around 3 months. She vomits and has severe nausea/abdominal pain. When visiting, patient threw up prior to my visit. She states she cannot hold anything down. Patient stated that she was told she was going to go on a full diet and said she cannot tolerate anything by mouth. EN was given to patient in past via NG tube and patient could not tolerate it due to the tube causing her to gag. She is open to trying EN another way that is notthrough NG tube. Surgery consulted this afternoon for GJ tube placement but they note Corpak naso-jejunal feeding tube placed at [facility]. Patient did not tolerate this and vomited out twice. Noted to self-induce vomiting while at [facility], leading to psychiatry consult and inter- personal communication difficulties that ultimately ended in discharge. Surgery does not recommend surgical feeding placement at this time and recommend psych evaluation. RD to continue to follow patient for next steps if Leanne needed or if PO intake improves. Estimated Daily Nutrient Needs: Energy Requirements Based On: Kcal/kg Weight Used for Energy Requirements: [place] Weight for Energy Calculation (kg): 57 kg Total Energy Requirements (kcals/day): 6686-3794 Weight Used for Protein Requirements: [place] Weight in Kg Used for Protein Requirements: 57 kg Estimated Total Protein (g/day): 57-68 Estimated Daily Total Fluid (ml/day): per MD Nutrition Related Findings: Patient Behaviors/Mood: Flat affect, Wandering, Cooperative Sachin Scale Score: 20. Wound Type: None Net IO Since Admission: 700 mL [09/19/24 1538] Gastrointestinal (WDL): Exceptions to WDL Bowel Sounds (All Quadrants): Active Abdomen Inspection: Soft, Flat Last BM Date: (unsure per patient), Edema: none Oxygen Therapy: None (Room air), Labs and meds reviewed: Scheduled: mirtazapine, 7.5 mg, Oral, Nightly pantoprazole, 40 mg, Oral, BID AC Current Nutrition Therapies: Adult diet Regular Current Oral Intake Average Meal Intake: Unable to assess (CLD) Average Supplements Intake: None Ordered Anthropometric Measures: Height: 165.1 cm (5' 5) Current Body Weight: 90.4 kg (199 lb 6.4 oz) Weight Source: Bed Scale Admission Body Weight: 90.7 kg (200 lb) (from 09/17) Usual Body Weight: 118 kg (260 lb) (250-260# 3 mo ago per pt) % Weight Change (Calculated): -23.3 [place] Body Weight (lbs) (Calculated): 125 lbs [place] Body Weight (Kg) (Calculated): 57 kg % [place] Body Weight (Calculated): 159.5 % BMI (kg/m2) (Calculated): 33.2 Weight Adjustment For: No Adjustment BMI Categories: Obese Class 1 (BMI 30.0-34.9) Nutrition Diagnosis: In context of chronic illness, Severe malnutrition related to pain, inadequate protein-energy intake as evidenced by weight loss 7.5% in 3 months, Criteria as identified in malnutrition assessment, lab values, GI abnormality, mild loss of subcutaneous fat, poor intake prior to admission, NPO or clear liquid status due to medical condition Nutrition Interventions: Nutrition Education/Counseling: Education not indicated (Pt recieved survival skill/brief ed last visit on one week agom) Coordination of Nutrition Care: Continue to monitor while inpatient Goals: Goals: PO intake 50% or greater, by next RD assessment Nutrition Monitoring and Evaluation: Behavioral-Environmental Outcomes: None Identified Food/Nutrient Intake Outcomes: Diet Advancement/Tolerance, Supplement Intake, Food and Nutrient Intake Physical Signs/Symptoms Outcomes: Weight, GI Status, Biochemical Data, Nutrition Focused Physical Findings, Nausea or Vomiting Discharge Planning: Too soon to determine Mercedes Pichardo RD Contact: available via [employer] or *[id number] [id number] Consult note* Tye Spencer III, MD - 09/19/2024 2:15 PM ESTAssociated Order(s): IP CONSULT TO GENERAL SURGERY Images from the original note were not included. Department of Surgery Surgical Service - 2 Resident Consult Note 09/19/2024 CHIEF COMPLAINT: Chief Complaint Patient presents with Abdominal Pain Patient c/o abd pain/nausea/vomiting x 3 months. Patient stating pain is now a 10/10. States the pain causes the nausea/vomiting. Patient currently a/o x 4. GCS 15. No distress noted. Reason for Consult: GJ tube consideration, chronic n/v HISTORY OF PRESENT ILLNESS: Addis Torres is a 24 y.o. female with a past medical history of hysterectomy, chronic nausea/vomiting, MJ use who presents with intractable nausea and vomiting. Says has been ongoing for 3 months, lost 60 lbs. Prior to this had been doing fine. Has LLQ pain immediately after eating, usually vomits few hrs after meal. Cannot tolerate sips of water. Seen by surgical team in 2020 for similar complaints, PEG tube not recommended at that time. Hysterectomy was c/b ureteral injury necessitating re-implantation per pt. Recently admitted to [facility] in Aug 30. Multiple studies: 08/01: EGD, gastritis, normal duodenum, small HH 08/05: HIDA, biliary dyskinesia --> lap ronak 08/11 08/24: Celiac plexus block 09/01: NM gastric emptying study --> normal [place] naso-jejunal feeding tube placed at [facility]. Patient did not tolerate this and vomited out twice. Noted to self-induce vomiting while at [facility], leading to psychiatry consult and inter-personal communication difficulties that ultimately ended in discharge. Past Medical History: Diagnosis Date Anxiety Cancer (CMS/HCC) (HCC) s/p TIARRA 12/2020 with cervix removed and salpingectomy Depression Intraoperative ureteral injury Migraine PCOS (polycystic ovarian syndrome) Past Surgical History: Procedure Laterality Date CHOLECYSTECTOMY COLONOSCOPY 02/28/2021 CYSTOSCOPY 12/26/2020 C and P CYSTOSCOPY Left 07/28/2021 Cystoscopy, pyelograms, left antegrade nephrostogram, left nephrostomy tube removal, left ureteral stent exchange (6fr 26cm) DILATION AND CURETTAGE OF UTERUS 11/08/2020 HYSTEROSCOPY 11/08/2020 OTHER SURGICAL HISTORY Left 07/28/2021 Stent exchange OTHER SURGICAL HISTORY 09/09/2021 Robotic assisted laparoscopic left ureteroureterotomy, ureterotomy with insertion of antegrade stent SALPINGECTOMY Bilateral 12/18/2020 Dr. Escobedo TOTAL ABDOMINAL HYSTERECTOMY 12/18/[address] Escobedo URETERAL STENT PLACEMENT Left 02/12/2021 Medications Prior to Admission: Current Facility-Administered Medications Medication Dose Route Frequency Provider Last Rate Last Admin acetaminophen (Tylenol) tablet 650 mg 650 mg Oral q6h PRN Donavan Nieves DO Or acetaminophen (Tylenol) suppository 650 mg 650 mg Rectal q6h PRN Donavan Nieves DO ketorolac (Toradol) injection 30 mg 30 mg IntraVENous q6h PRN Chika Adames MD 30 mg at 09/18/24 1150 mirtazapine (Remeron) tablet 7.5 mg 7.5 mg Oral Nightly Donavan Nieves DO 7.5 mg at 09/18/242009 morphine injection 2 mg 2 mg IntraVENous q4h PRN Chika Adames MD 2 mg at 09/19/24 1016 naloxone (Narcan) injection 0.4 mg 0.4 mg IntraVENous q5 min PRN Chika Adames MD pantoprazole (ProtoNix) EC tablet 40 mg 40 mg Oral BID AC Donavan Nieves DO 40 mg at 09/19/24 0550 polyethylene glycol (PEG) 3350 (Miralax) packet 17 g 17 g Oral Daily PRN Donavan Nieves DO prochlorperazine (Compazine) tablet 10 mg 10 mg Oral q6h PRN Donavan Nieves DO Or prochlorperazine (Compazine) injection 10 mg 10 mg IntraVENous q6h PRN Donavan Nieves DO 10 mgat 09/19/24 1035 Or prochlorperazine (Compazine) suppository 25 mg 25 mg Rectal q12h PRN Donavan Nieves DO Allergies: Ceftriaxone, Promethazine, and Lactated ringers Social History Socioeconomic History Marital status: Single Tobacco Use Smoking status: Never Smokeless tobacco: Never Substance and Sexual Activity Alcohol use: Not Currently Drug use: Yes Types: Marijuana Comment: quit 3 mos ago Social Drivers of Health Food Insecurity: No Food Insecurity (09/17/2024) Hunger Vital Sign Worried About Running Out of Food in the Last Year: Never true Ran Out of Food in the Last Year: Never true Transportation Needs: No Transportation Needs (09/17/2024) PRAPARE - Transportation Lack of Transportation (Medical): No Lack of Transportation (Non-Medical): No Intimate Partner Violence: Not At Risk (09/17/2024) Humiliation, Afraid, Rape, and Kick questionnaire Fear of Current or Ex-Partner: No Emotionally Abused: No Physically Abused: No Sexually Abused: No Housing Stability: Low Risk (09/17/2024) Housing Stability Vital Sign Unable to Pay for Housing in the Last Year: No Number of Times Moved in the Last Year: 0 Homeless in the Last Year: No Family History Problem Relation Name Age of Onset High Blood Pressure Mother Cancer Mother's Sister ovarian Diabetes Mother Breast cancer Mother's Sister Breast cancer Maternal Grandmother Colon cancer Mother's Sister REVIEW OF SYSTEMS: Review of Systems Gastrointestinal: Positive for abdominal pain, nausea and vomiting. Negative for abdominal distention, blood in stool, constipation and diarrhea. PHYSICAL EXAM: Vitals: 09/19/24 0811 BP: 113/79 Pulse: 91 Resp: 16 Temp: 37.2 C (98.9 F) SpO2: 98% I/O last 3 completed shifts: In: 1000 (11 mL/kg) [P.O.:500; IV Piggyback:500] Out: 300 (3.3 mL/kg) [Emesis/NG output:300] Weight: 90.7 kg CONSTITUTIONAL: awake, alert, no apparent distress, malodorous NECK: Supple, symmetrical, trachea midline, no adenopathy LUNGS: No increased work of breathing, good air exchange CARDIOVASCULAR: Regular rate and rhythm ABDOMEN: Soft, non-distended, scars in various stages of healing, tenderness to palpation in left-weston abdomen. No signs of peritonitis CHEST: no masses palpated, no axillary or supraclavicular adenopathy GENITAL/URINARY: Not examined MUSCULOSKELETAL: There is no redness, warmth, or swelling of the joints. Full range of motion noted. NEUROLOGIC: Awake, alert, oriented to name, place and time. SKIN: normal skin color, texture, no redness, warmth, or swelling DATA: CBC: Lab Results Component Value Date WBC 5.3 09/19/2024 RBC 4.41 09/19/2024 HGB 11.3 (L) 09/19/2024 HCT 34.9 (L) 09/19/2024 MCV 79.1 09/19/2024 MCH 25.6 (L) 09/19/2024 MCHC 32.4 09/19/2024 RDW 16.5 (H) 09/19/2024 PLT 234 09/19/2024 MPV 9.4 09/19/2024 BMP: Lab Results Component Value Date NA 140 09/19/2024 K 3.2 (L) 09/19/2024 CL 111 (H) 09/19/2024 CO2 17 (L) 09/19/2024 BUN <3 (L) 09/19/2024 CREATININE 0.67 09/19/2024 CALCIUM 9.1 09/19/2024 GLUCOSE 74 09/19/2024 Hepatic Function Panel: Lab Results Component Value Date ALKPHOS 52 09/19/2024 ALT 93 (H) 09/19/2024 AST 79 (H) 09/19/2024 PROT 6.4 09/19/2024 BILITOT 0.5 09/19/2024 PT/INR: No results found for: PROTIME, INR Troponin: No results found for: TROPONINI LIPASE: Lab Results Component Value Date LIPASE 63 (H) 09/17/2024 IMAGING: ECG 12 lead Result Date: 09/18/2024 Sinus tachycardia Borderline Q waves in inferior leads Electronically Signed On 09-18-2024 03:00:11EST by Gela Ruiz ASSESSMENT AND PLAN: This is a 24 y.o. female with chronic nausea and vomiting. - No acute surgical intervention - This is a difficult situation - Extensive chart review of month-long [facility] hospital course performed. Surgery was consulted at [facility],held off on placing GJ tube as patient was unable to tolerate post-pyloric (naso-enteric/jejunal) feeds - Do no recommend surgical feeding tube at this time - Would recommend psychiatry consult Patient discussed with attending, Dr. Lu. Tye Spencer III, MD General Surgery PGY-4 09/19/24 2:15 PM Cosigned by Lalo Lu MD at 09/19/2024 3:47 PM EST Associated attestation - Lalo Lu MD - 09/19/2024 3:47 PM EST ~~~~~~~~~~~~~~~~~~~~~~~~~~~~~~~~~~~~~~~~~~~~~~~~~~~~~~~~~~~~ ATTENDING ADDENDUM I independently saw the above patient and reviewed their imaging, labs, vital signs, and performed a physical exam and ROS. My findings agree with the above note except for any details corrected below. D/W residents. Agree with plans. [employer] Work Phone: [phone] Nurse Note* Holly Soto RN - 09/19/2024 12:06 PM EST Patient complaining of soreness when IV flushed, message Dr. Adames to see if needed new site. Als[place]anted to get up date on plan for patient. Dr. Adames is unsure of plan, GI does not want to see patient at this time. Left message for rapid response for IV placement, as patient stated that the IV she has now was placed by ultra sound. [id number] Note* Care Coordination - Nina Potts RN - 09/19/2024 9:50 AM EST TCC completed chart review. Clear liquid diet. Plan is home. TCC will follow for needs. No anticipated DC needs seen. [facility] [id number] Note* Care Coordination - Nina Potts RN - 09/19/2024 9:50 AM EST TCC completed chart review. Clear liquid diet. Plan is home. TCC will follow for needs. No anticipated DC needs seen. [facility] [id number] Plan of care note* Care Plan - Patience Velazco RN - 09/19/2024 1:23 AM EST Problem: Pain - Adult Goal: Verbalizes/displays adequate comfort level or baseline comfort level Outcome: Not Progressing Patient paces and stares until pain medication is given. Pain rating is 10/10 always. Problem: Knowledge Deficit Goal: Patient/family/caregiver demonstrates understanding of disease process, treatment plan, medications, and discharge instructions 09/19/2024 0123 by Patience Velazco RN Outcome: Progressing 09/18/20242200 by Patience Velazco RN Outcome: Progressing Problem: Potential for Compromised Skin Integrity Goal: Skin Integrity is Maintained or Improved 09/19/2024 0123 by Patience Velazco RN Outcome: Progressing 09/18/20242200 by Patience Velazco RN Outcome: Progressing Goal: Nutritional status is improving 09/19/2024 0123 by Patience Velazco RN Outcome: Progressing 09/18/20242200 by Patience Velazco RN Outcome: not progressing Problem: Urinary Incontinence Goal: Perineal skin integrity is maintained or improved 09/19/2024 0123 by Patience Velazco RN Outcome: Progressing 09/18/20242200 by Patience Velazco RN Outcome: Progressing [facility] [id number] Plan of care note* Care Plan - Patience Velazco RN - 09/18/2024 10:01 PM EST Problem: Knowledge Deficit Goal: Patient/family/caregiver demonstrates understanding of disease process, treatment plan, medications, and discharge instructions Outcome: Progressing Problem: Potential for Compromised Skin Integrity Goal: Skin Integrity is Maintained or Improved Outcome: Progressing Goal: Nutritional status is improving Outcome: Progressing Problem: Urinary Incontinence Goal: Perineal skin integrity is maintained or improved Outcome: Progressing [facility] [id number] Nurse Note* Khanh Carrera RN - 09/18/2024 6:33 AM EST Patient given Toradol 2x PRN for pain overnight. Patient when awake c/o 9-10/10 pain unrelieved by anything given to patient so far at current stay, including the morphine in the ED. Patient slept for several hours overnight without incident. No vomiting overnight. Patient began to c/o pain ~5 minutes after being woken up for AM labs and meds. Patient now walking up/down halls without difficulty. [facility] [id number] History and physical note* Donavan Nieves DO - 09/17/2024 8:55 PM EST Attending History and Physical Admit Date: 09/17/2024 PCP: No primary care provider on file. CHIEF COMPLAINT: Nausea and chronic left abdominal pain Reason for Admission: Intractable nausea and vomiting, hypokalemia History Obtained From: patient HISTORY OF PRESENT ILLNESS: Addis is a 24 y.o. female with past medical history below who presents with chief complaint listed above. Patient presents again after discharge yesterday for intractable nausea and vomiting. This seems to be an ongoing issue for the last several months, she has been hospitalized multiple times and had extensive workup including a EGD with mild gastritis, normal gastric emptying study done, also witnessed in the past to be self inducing vomiting by putting fingers down her throat. Other than her nausea and vomiting the patient complains of her chronic left abdominal pain as well. She has no other acute complaints. Workup in the ED was most notable for being afebrile, heart rate around 110, normal respirations, normotensive satting well on room air. Her labs were notable for potassium of 2.7. Will admit for further evaluation and management. Past Medical History: Past Medical History: Diagnosis Date Anxiety Cancer (CMS/HCC) (HCC) s/p TIARRA 12/2020 with cervix removed and salpingectomy Depression Intraoperative ureteral injury Migraine PCOS (polycystic ovarian syndrome) Past Surgical History: Past Surgical History: Procedure Laterality Date CHOLECYSTECTOMY COLONOSCOPY 02/28/2021 CYSTOSCOPY 12/26/2020 C and P CYSTOSCOPY Left 07/28/2021 Cystoscopy, pyelograms, left antegrade nephrostogram, left nephrostomy tube removal, left ureteral stent exchange (6fr 26cm) DILATION AND CURETTAGE OF UTERUS 11/08/2020 HYSTEROSCOPY 11/08/2020 OTHER SURGICAL HISTORY Left 07/28/2021 Stent exchange OTHER SURGICAL HISTORY 09/09/2021 Robotic assisted laparoscopic left ureteroureterotomy, ureterotomy with insertion of antegrade stent SALPINGECTOMY Bilateral 12/18/2020 Dr. Escobedo TOTAL ABDOMINAL HYSTERECTOMY 12/18/[address] Escobedo URETERAL STENT PLACEMENT Left 02/12/2021 Social History: Social History Socioeconomic History Marital status: Single Spouse name: Not on file Number of children: Not on file Years of education: Not on file Highest education level: Not on file Occupational History Not on file Tobacco Use Smoking status: Never Smokeless tobacco: Never Substance and Sexual Activity Alcohol use: Not Currently Drug use: Yes Types: Marijuana Comment: quit 3 mos ago Sexual activity: Not on file Other Topics Concern Not on file Social History Narrative Not on file Social Drivers of Health Financial Resource Strain: Not on file Food Insecurity: No Food Insecurity (08/22/2024) Received from [facility] Hunger Vital Sign Worried About Running Out of Food in the Last Year: Never true Ran Out of Food in the Last Year: Never true Transportation Needs: No Transportation Needs (08/22/2024) Received from [facility] PRAPARE - Transportation Lack of Transportation (Medical): No Lack of Transportation (Non-Medical): No Physical Activity: Not on file Stress: Not on file Social Connections: Not on file Intimate Partner Violence: Not on file Housing Stability: Unknown (08/22/2024) Received from [facility] Housing Stability Vital Sign Unable to Pay for Housing in the Last Year: No Number of Times Moved in the Last Year: Not on file Homeless in the Last Year: No Family History: Family History Problem Relation Name Age of Onset High Blood Pressure Mother Cancer Mother's Sister ovarian Diabetes Mother Breast cancer Mother's Sister Breast cancer Maternal Grandmother Colon cancer Mother's Sister Medications Prior to Admission: No current facility-administered medications on file prior to encounter. Current Outpatient Medications on File Prior to Encounter Medication Sig Dispense Refill capsaicin (Zostrix) 0.025 % cream Apply topically 2 times daily as needed for mild pain (1-3) (Apply to abdomen). mirtazapine (Remeron) 7.5 MG tablet Take 1 tablet (7.5 mg) by mouth Nightly. 30 tablet 0 pantoprazole (ProtoNix) 40 MG EC tablet Take 1 tablet (40 mg) by mouth 2 times daily (before meals). Do not crush, chew, or split. 60 tablet 0 [DISCONTINUED] amitriptyline (Elavil) 150 MG tablet Take 150 mg by mouth Nightly. (Patient not taking: Reported on 09/15/2024) [DISCONTINUED] gabapentin (Neurontin) 100 MG capsule Take 200 mg by mouth 3 times daily. (Patient not taking: Reported on 09/15/2024) [DISCONTINUED] metoclopramide (Reglan) 10 MG tablet Take 1 tablet (10 mg) by mouth every 6 hours for 7 days. (Patient not taking: Reported on 09/15/2024) 28 tablet 0 [DISCONTINUED] pantoprazole (ProtoNix) 40 MG EC tablet Take 40 mg by mouth 2 times daily. Do not crush, chew, or split. (Patient not taking: Reported on 09/15/2024) [DISCONTINUED] potassium chloride CR (Klor-Con M10) 10 MEQ ER tablet Take 1 tablet (10 mEq) by mouth 2 times daily for 3 days. Do not crush or chew. 6 tablet 0 [DISCONTINUED] sucralfate (Carafate) 1 g tablet Take 1 tablet (1 g) by mouth 3 times daily (before meals) for 7 days. (Patient not taking: Reported on 09/15/2024) 21 tablet 0 Allergies: Allergies Allergen Reactions Ceftriaxone Hives, Itching and Other Promethazine Vomiting Only Lactated Ringers Hives, Itching and Other reddness REVIEW OF SYSTEMS: Constitutional: Negative for fever, chills, activity change and unexpected weight change. HEENT: Negative for congestion, postnasal drip and sneezing. Eyes: Negative for itching and visual disturbance. Respiratory: Negative for apnea, cough, choking, chest tightness, shortness of breath, wheezing andstridor. Cardiovascular: Negative for chest pain. Gastrointestinal: Negative for nausea, vomiting, abdominal pain, diarrhea and blood in stool. Genitourinary: Negative for dysuria, frequency and flank pain. Musculoskeletal: Negative for myalgias and joint swelling. Skin: Negative for rash. Neurological: Negative for dizziness, tremors, seizures, syncope, facial asymmetry, speech difficulty, weakness, numbness and headaches. Hematological: Negative for adenopathy. Psychiatric/Behavioral: Negative for suicidal ideas, behavioral problems, self- injury and dysphoricmood. Vitals: BP (!) 143/110 Pulse (!) 114 Temp 36.7 C (98.1 F) (Temporal) Resp 18 Ht 5' 5 (1.651 m) Wt 200 lb (90.7 kg) SpO2 99% BMI 33.28 kg/m BMI Classification: Obese (BMI 30.0-39.9) Pulse Ox: SpO2 Av.5 % Min: 98 % Max: 99 % Supplemental O2: PHYSICAL EXAM: Physical Exam Vitals reviewed. Constitutional: General: She is not in acute distress. Appearance: Normal appearance. She is not ill-appearing. HENT: Head: Normocephalic and atraumatic. Right Ear: External ear normal. Left Ear: External ear normal. Nose: Nose normal. Mouth/Throat: Mouth: Mucous membranes are moist. Pharynx: Oropharynx is clear. Eyes: General: Right eye: No discharge. Left eye: No discharge. Pupils: Pupils are equal, round, and reactive to light. Cardiovascular: Rate and Rhythm: Normal rate. Pulses: Normal pulses. Pulmonary: Effort: Pulmonary effort is normal. No respiratory distress. Abdominal: General: Bowel sounds are normal. Palpations: Abdomen is soft. Musculoskeletal: General: No deformity. Normal range of motion. Cervical back: Normal range of motion and neck supple. No rigidity. Skin: General: Skin is warm and dry. Neurological: General: No focal deficit present. Mental Status: She is alert. Psychiatric: Mood and Affect: Mood normal. Behavior: Behavior normal. DATA: CBC: Recent Labs 09/15/24 1149 09/16/24 0649 09/17/24 1755 WBC 7.0 6.2 5.8 RBC 5.18 4.21 4.85 HGB 13.3 10.9* 12.5 HCT 40.7 34.5* 38.5 MCV 78.6 81.9 79.4 RDW 15.9* 16.3* 15.9* PLT 337 249 276 BMP: Recent Labs 09/15/24 1149 09/16/24 0649 09/17/24 1755 NA 136 138 134* K 3.1* 3.1* 2.7* CL 101 109* 100 CO2 18* 19* 19* BUN <3* <3* <3* CREATININE 0.77 0.58 0.79 GLUCOSE 90 74 81 CALCIUM 9.7 8.3* 9.6 ANIONGAP 17* 10 15* LIVER PROFILE: Recent Labs 09/15/24 1149 09/16/24 0649 09/17/24 1755 AST 29 18 21 ALT 33* 22 30* BILITOT 0.4 0.3 0.4 ALKPHOS 63 45 55 PROT 8.1 5.9* 7.6 PT/INR: No results for input(s): PROTIME, INR in the last 72 hours. CARDIAC ENZYMES: No results for input(s): TROPONINI in the last 72 hours. Procalcitonin: No results found for: PROCAL Urine Culture: No results found for this or any previous visit. COVID-19 PCR: No results for input(s): COVID19 in the last 72 hours. I reviewed: [x] laboratory results [x] radiographic results At the time of today's encounter. Pt was advised of the results. Data: (CAT3) Discussed with ED provider, Dr. Rowley, regarding patient's eval & mgmt thus far, and agree with the plan for hospitalization. (LOW: 2x CAT1 or independent historian MOD: 3x CAT1 or 1x CAT3 EXTENSIVE: 3x CAT1 and 1x CAT3) Assessment Discussed management with the ED provider and agree with hospitalization. Acute, acute on chronic, unstable/uncontrolled chronic problems/diagnoses: Intractable nausea and vomiting Stable chronic problems affecting care, new non-acute diagnoses: Plan As a result of the above findings & factors, the following mgmt was pursued: Intractable nausea and vomiting Hypokalemia Serum K2.7 on admission Likely due to cannabinoid hyperemesis syndrome versus gastritis versus malingering versus factitious disorder (patient denies THC use for 4 months but tox was still positive, patient has been witnessed in the past to be inducing vomiting by hand/fingers) EGD - 07/2024 for the same complaints, negative gastric emptying scan 08/2024 - am labs, replace lytes prn - PT/OT/CM/SW - delirium precautions: increase activity - DVT prophylaxis: encourage ambulation Complexity: Acute illness or injury posing a threat to life or body function (HIGH). Risk: Admission to hospital-level care was considered or occurred (HIGH). Advance Directive: Prior Anticipated Discharge - Date -09/18/2024 - Location - Home - Pending the following -serum potassium level normalization Total time spent (which include face to face and non face to face encounters) : 78 minutes. Extended Emergency Contact Information Primary Emergency Contact: Moy Davey Mobile Relation: Partner Secondary Emergency Contact: BrianAngelica Relation: Parent Donavan Nieves DO Division of Hospital Medicine Inpatient Medical Services/[facility] [employer] Work Phone: 1(323) 618-465201-11-2025 [facility]01-11-2025 History and physical note* Donavan Nieves DO - 09/17/2024 8:55 PM EST Attending History and Physical Admit Date: 09/17/2024 PCP: No primary care provider on file. CHIEF COMPLAINT: Nausea and chronic left abdominal pain Reason for Admission: Intractable nausea and vomiting, hypokalemia History Obtained From: patient HISTORY OF PRESENT ILLNESS: Addis is a 24 y.o. female with past medical history below who presents with chief complaint listed above. Patient presents again after discharge yesterday for intractable nausea and vomiting. This seems to be an ongoing issue for the last several months, she has been hospitalized multiple times and had extensive workup including a EGD with mild gastritis, normal gastric emptying study done, also witnessed in the past to be self inducing vomiting by putting fingers down her throat. Other than her nausea and vomiting the patient complains of her chronic left abdominal pain as well. She has no other acute complaints. Workup in the ED was most notable for being afebrile, heart rate around 110, normal respirations, normotensive satting well on room air. Her labs were notable for potassium of 2.7. Will admit for further evaluation and management. Past Medical History: Past Medical History: Diagnosis Date Anxiety Cancer (CMS/HCC) (HCC) s/p TIARRA 12/2020 with cervix removed and salpingectomy Depression Intraoperative ureteral injury Migraine PCOS (polycystic ovarian syndrome) Past Surgical History: Past Surgical History: Procedure Laterality Date CHOLECYSTECTOMY COLONOSCOPY 02/28/2021 CYSTOSCOPY 12/26/2020 C and P CYSTOSCOPY Left 07/28/2021 Cystoscopy, pyelograms, left antegrade nephrostogram, left nephrostomy tube removal, left ureteral stent exchange (6fr 26cm) DILATION AND CURETTAGE OF UTERUS 11/08/2020 HYSTEROSCOPY 11/08/2020 OTHER SURGICAL HISTORY Left 07/28/2021 Stent exchange OTHER SURGICAL HISTORY 09/09/2021 Robotic assisted laparoscopic left ureteroureterotomy, ureterotomy with insertion of antegrade stent SALPINGECTOMY Bilateral 12/18/2020 Dr. Escobedo TOTAL ABDOMINAL HYSTERECTOMY 12/18/[address] Escobedo URETERAL STENT PLACEMENT Left 02/12/2021 Social History: Social History Socioeconomic History Marital status: Single Spouse name: Not on file Number of children: Not on file Years of education: Not on file Highest education level: Not on file Occupational History Not on file Tobacco Use Smoking status: Never Smokeless tobacco: Never Substance and Sexual Activity Alcohol use: Not Currently Drug use: Yes Types: Marijuana Comment: quit 3 mos ago Sexual activity: Not on file Other Topics Concern Not on file Social History Narrative Not on file Social Drivers of Health Financial Resource Strain: Not on file Food Insecurity: No Food Insecurity (08/22/2024) Received from [facility] Hunger Vital Sign Worried About Running Out of Food in the Last Year: Never true Ran Out of Food in the Last Year: Never true Transportation Needs: No Transportation Needs (08/22/2024) Received from [facility] PRAPARE - Transportation Lack of Transportation (Medical): No Lack of Transportation (Non-Medical): No Physical Activity: Not on file Stress: Not on file Social Connections: Not on file Intimate Partner Violence: Not on file Housing Stability: Unknown (08/22/2024) Received from [facility] Housing Stability Vital Sign Unable to Pay for Housing in the Last Year: No Number of Times Moved in the Last Year: Not on file Homeless in the Last Year: No Family History: Family History Problem Relation Name Age of Onset High Blood Pressure Mother Cancer Mother's Sister ovarian Diabetes Mother Breast cancer Mother's Sister Breast cancer Maternal Grandmother Colon cancer Mother's Sister Medications Prior to Admission: No current facility-administered medications on file prior to encounter. Current Outpatient Medications on File Prior to Encounter Medication Sig Dispense Refill capsaicin (Zostrix) 0.025 % cream Apply topically 2 times daily as needed for mild pain (1-3) (Apply to abdomen). mirtazapine (Remeron) 7.5 MG tablet Take 1 tablet (7.5 mg) by mouth Nightly. 30 tablet 0 pantoprazole (ProtoNix) 40 MG EC tablet Take 1 tablet (40 mg) by mouth 2 times daily (before meals). Do not crush, chew, or split. 60 tablet 0 [DISCONTINUED] amitriptyline (Elavil) 150 MG tablet Take 150 mg by mouth Nightly. (Patient not taking: Reported on 09/15/2024) [DISCONTINUED] gabapentin (Neurontin) 100 MG capsule Take 200 mg by mouth 3 times daily. (Patient not taking: Reported on 09/15/2024) [DISCONTINUED] metoclopramide (Reglan) 10 MG tablet Take 1 tablet (10 mg) by mouth every 6 hours for 7 days. (Patient not taking: Reported on 09/15/2024) 28 tablet 0 [DISCONTINUED] pantoprazole (ProtoNix) 40 MG EC tablet Take 40 mg by mouth 2 times daily. Do not crush, chew, or split. (Patient not taking: Reported on 09/15/2024) [DISCONTINUED] potassium chloride CR (Klor-Con M10) 10 MEQ ER tablet Take 1 tablet (10 mEq) by mouth 2 times daily for 3 days. Do not crush or chew. 6 tablet 0 [DISCONTINUED] sucralfate (Carafate) 1 g tablet Take 1 tablet (1 g) by mouth 3 times daily (before meals) for 7 days. (Patient not taking: Reported on 09/15/2024) 21 tablet 0 Allergies: Allergies Allergen Reactions Ceftriaxone Hives, Itching and Other Promethazine Vomiting Only Lactated Ringers Hives, Itching and Other reddness REVIEW OF SYSTEMS: Constitutional: Negative for fever, chills, activity change and unexpected weight change. HEENT: Negative for congestion, postnasal drip and sneezing. Eyes: Negative for itching and visual disturbance. Respiratory: Negative for apnea, cough, choking, chest tightness, shortness of breath, wheezing andstridor. Cardiovascular: Negative for chest pain. Gastrointestinal: Negative for nausea, vomiting, abdominal pain, diarrhea and blood in stool. Genitourinary: Negative for dysuria, frequency and flank pain. Musculoskeletal: Negative for myalgias and joint swelling. Skin: Negative for rash. Neurological: Negative for dizziness, tremors, seizures, syncope, facial asymmetry, speech difficulty, weakness, numbness and headaches. Hematological: Negative for adenopathy. Psychiatric/Behavioral: Negative for suicidal ideas, behavioral problems, self- injury and dysphoricmood. Vitals: BP (!) 143/110 Pulse (!) 114 Temp 36.7 C (98.1 F) (Temporal) Resp 18 Ht 5' 5 (1.651 m) Wt 200 lb (90.7 kg) SpO2 99% BMI 33.28 kg/m BMI Classification: Obese (BMI 30.0-39.9) Pulse Ox: SpO2 Av.5 % Min: 98 % Max: 99 % Supplemental O2: PHYSICAL EXAM: Physical Exam Vitals reviewed. Constitutional: General: She is not in acute distress. Appearance: Normal appearance. She is not ill-appearing. HENT: Head: Normocephalic and atraumatic. Right Ear: External ear normal. Left Ear: External ear normal. Nose: Nose normal. Mouth/Throat: Mouth: Mucous membranes are moist. Pharynx: Oropharynx is clear. Eyes: General: Right eye: No discharge. Left eye: No discharge. Pupils: Pupils are equal, round, and reactive to light. Cardiovascular: Rate and Rhythm: Normal rate. Pulses: Normal pulses. Pulmonary: Effort: Pulmonary effort is normal. No respiratory distress. Abdominal: General: Bowel sounds are normal. Palpations: Abdomen is soft. Musculoskeletal: General: No deformity. Normal range of motion. Cervical back: Normal range of motion and neck supple. No rigidity. Skin: General: Skin is warm and dry. Neurological: General: No focal deficit present. Mental Status: She is alert. Psychiatric: Mood and Affect: Mood normal. Behavior: Behavior normal. DATA: CBC: Recent Labs 09/15/24 1149 09/16/24 0649 09/17/24 1755 WBC 7.0 6.2 5.8 RBC 5.18 4.21 4.85 HGB 13.3 10.9* 12.5 HCT 40.7 34.5* 38.5 MCV 78.6 81.9 79.4 RDW 15.9* 16.3* 15.9* PLT 337 249 276 BMP: Recent Labs 09/15/24 1149 09/16/24 0649 09/17/24 1755 NA 136 138 134* K 3.1* 3.1* 2.7* CL 101 109* 100 CO2 18* 19* 19* BUN <3* <3* <3* CREATININE 0.77 0.58 0.79 GLUCOSE 90 74 81 CALCIUM 9.7 8.3* 9.6 ANIONGAP 17* 10 15* LIVER PROFILE: Recent Labs 09/15/24 11409/16/24 0649 09/17/24 1755 AST 29 18 21 ALT 33* 22 30* BILITOT 0.4 0.3 0.4 ALKPHOS 63 45 55 PROT 8.1 5.9* 7.6 PT/INR: No results for input(s): PROTIME, INR in the last 72 hours. CARDIAC ENZYMES: No results for input(s): TROPONINI in the last 72 hours. Procalcitonin: No results found for: PROCAL Urine Culture: No results found for this or any previous visit. COVID-19 PCR: No results for input(s): COVID19 in the last 72 hours. I reviewed: [x] laboratory results [x] radiographic results At the time of today's encounter. Pt was advised of the results. Data: (CAT3) Discussed with ED provider, Dr. Rowley, regarding patient's eval & mgmt thus far, and agree with the plan for hospitalization. (LOW: 2x CAT1 or independent historian MOD: 3x CAT1 or 1x CAT3 EXTENSIVE: 3x CAT1 and 1x CAT3) Assessment Discussed management with the ED provider and agree with hospitalization. Acute, acute on chronic, unstable/uncontrolled chronic problems/diagnoses: Intractable nausea and vomiting Stable chronic problems affecting care, new non-acute diagnoses: Plan As a result of the above findings & factors, the following mgmt was pursued: Intractable nausea and vomiting Hypokalemia Serum K2.7 on admission Likely due to cannabinoid hyperemesis syndrome versus gastritis versus malingering versus factitious disorder (patient denies THC use for 4 months but tox was still positive, patient has been witnessed in the past to be inducing vomiting by hand/fingers) EGD - 07/2024 for the same complaints, negative gastric emptying scan 08/2024 - am labs, replace lytes prn - PT/OT/CM/SW - delirium precautions: increase activity - DVT prophylaxis: encourage ambulation Complexity: Acute illness or injury posing a threat to life or body function (HIGH). Risk: Admission to hospital-level care was considered or occurred (HIGH). Advance Directive: Prior Anticipated Discharge - Date -09/18/2024 - Location - Home - Pending the following -serum potassium level normalization Total time spent (which include face to face and non face to face encounters) : 78 minutes. Extended Emergency Contact Information Primary Emergency Contact: Moy Davey Mobile Relation: Partner Secondary Emergency Contact: BrianAngelica Relation: Parent Donavan Nieves DO Division of Hospital Medicine Inpatient Medical Services/[facility] documented in this [facility]01-11-2025 Emergency department Note* Debbi Holman RN - 09/17/2024 4:33 PM EST EMY/Debbi unable to obtain IV access/blood, and MISAEL/RN and Carolina/RN attempted as well; Bill/Trauma float RN to attempt with ultrasound [id number]* Debbi Holman RN - 09/17/2024 4:33 PM EST RN/Debbi unable to obtain IV access/blood, and MISAEL/RN and Carolina/EMY attempted as well; Bill/Trauma float RN to attempt with ultrasound * Carolina De La Torre RN - 09/17/2024 4:15 PM EST This RN attempted IV insertion in right AC with no success. * Heriberto Rowley MD - 09/17/2024 2:28 PM EST Emergency Department Encounter [facility] EMERGENCY DEPT Patient: Addis Torres : 2000 Date of Evaluation: 09/17/2024 ED Supervising Physician: Heriberto Rowley MD I personally evaluated Addis Torres and made/approved the management plan and take responsibility for the patient management. This will serve as my Supervisory note and shared attestation. I did perform a substantive portion of the visit including all aspects of the Medical Decision Making. I wore appropriate PPE for the entirety of this encounter. In brief, Addis Torres is a 24 y.o. that presents to the emergency department For evaluation of left lower quadrant abdominal pain. Patient states pain has been present for 3 months. She was just discharged from the CDU after a 24-hour observation stay where no significant derangements were found other than hypokalemia which was treated with IV potassium. Patient discharged after GI consult recommended outpatient follow-up. Some suspicion for cannabinoid hyperemesis as patient did have positive urine drug screen for THC but denied any marijuana use for 3 months. Patient refused capsaicin cream treatment. She presents today stating that she had no relief or improvement in symptoms during her observation. And was discharged in the same condition. She states the pain has continued to worsen. She states that she has not been able to eat or drink at all for 3 months. Patient reports past medical history of cholecystectomy. Focused exam: Awake, alert, appears uncomfortable but in no acute distress. Tachycardic with normalheart sounds. Normal respiratory rate and effort. Extremities unremarkable. Elevated BMI. Tender topalpation left lower quadrant without rebound, guarding, or other peritoneal signs. Remainder of abdomen is nontender to palpation with no palpable abnormalities. Extremities unremarkable. Brief ED course/MDM: Patient presents for evaluation of left lower quadrant abdominal pain that hasbeen present for 3 months. Patient was just discharged after 24-hour observation admission to the CDU for the same complaint. She states it is no better or worse than prior to that admission. She states that during her admission she did not have any significant relief but was discharged the next day anyway. Some suspicion for cannabinoid hyperemesis. According to chart review, patient reported that she has not used marijuana in the last 3 months however had a positive test. Nontender to palpation throughout the abdomen. Workup revealed hypokalemia at 2.7, urinary ketosis, mildly elevated lipase at 63 but otherwise unremarkable on CBC, lactic acid. She does have an anion gap and decreased bicarb. This could be secondary to excessive GI losses. Urine screen is negative. Patient provided Zofran, Bentyl, and IV fluids in the ED. Supplemental potassium also initiated. Given the significantly decreased level of feel she does warrant admission for repletion and continued management. Diagnostics interpreted by me: none I personally discussed the patient's management with other clinicians: none All diagnostic, treatment, and disposition decisions were made by myself in conjunction with the JAIRO. For all further details of the patient's emergency department visit, please see their documentation. (Comment: Please note this report has been produced using speech recognition software and may contain errors related to that system including errors in grammar, punctuation, and spelling, as well as words and phrases that may be inappropriate. If there are any questions or concerns please feel freeto contact the dictating provider for clarification.) Heriberto Rowley MD [facility] Heriberto Rowley MD 09/17/241916 * Hiwot Reaves PA-C - 09/17/2024 2:28 PM EST EMERGENCY DEPARTMENT ENCOUNTER Pt Name: Addis Torres Birthdate 2000 Date of evaluation: 09/17/2024 ED Provider: Hiwot Reaves PA-C CHIEF COMPLAINT Chief Complaint Patient presents with Abdominal Pain Patient c/o abd pain/nausea/vomiting x 3 months. Patient stating pain is now a 10/10. States the pain causes the nausea/vomiting. Patient currently a/o x 4. GCS 15. No distress noted. HISTORY OF PRESENT ILLNESS (Location/Symptom, Timing/Onset, Context/Setting, Quality, Duration, Modifying Factors, Severity) Note limiting factors. I wore appropriate PPE for the entirety of this encounter. HPI Addis Torres is a 24 y.o. female who presents to the emergency department for abdominal pain, nausea, vomiting ongoing for the past 3 months. Recent admission for chronic abdominal pain. Presentedback to the ED for persistent abdominal pain and associated nausea vomiting. Endorses history of cho lecystectomy. no other abdominal surgeries. Denies fever, chills. Patient endorses not being able to eat or drink for the past 3 months. Nursing Notes were reviewed. Limitations to history: None Outside historians: None REVIEW OF SYSTEMS Review of Systems 14 systems reviewed, positives and pertinent negatives as per HPI. All other systems were reviewed and are negative. PAST MEDICAL HISTORY Past Medical History: Diagnosis Date Anxiety Cancer (CMS/HCC) (HCC) s/p TIARRA 12/2020 with cervix removed and salpingectomy Depression Intraoperative ureteral injury Migraine PCOS (polycystic ovarian syndrome) SURGICAL HISTORY Past Surgical History: Procedure Laterality Date CHOLECYSTECTOMY COLONOSCOPY 02/28/2021 CYSTOSCOPY 12/26/2020 C and P CYSTOSCOPY Left 07/28/2021 Cystoscopy, pyelograms, left antegrade nephrostogram, left nephrostomy tube removal, left ureteral stent exchange (6fr 26cm) DILATION AND CURETTAGE OF UTERUS 11/08/2020 HYSTEROSCOPY 11/08/2020 OTHER SURGICAL HISTORY Left 07/28/2021 Stent exchange OTHER SURGICAL HISTORY 09/09/2021 Robotic assisted laparoscopic left ureteroureterotomy, ureterotomy with insertion of antegrade stent SALPINGECTOMY Bilateral 12/18/2020 Dr. Escobedo TOTAL ABDOMINAL HYSTERECTOMY 12/18/[address] Escobedo URETERAL STENT PLACEMENT Left 02/12/2021 CURRENT MEDICATIONS Previous Medications CAPSAICIN (ZOSTRIX) 0.025 % CREAM Apply topically 2 times daily as needed for mild pain (1-3) (Apply to abdomen). MIRTAZAPINE (REMERON) 7.5 MG TABLET Take 1 tablet (7.5 mg) by mouth Nightly. PANTOPRAZOLE (PROTONIX) 40 MG EC TABLET Take 1 tablet (40 mg) by mouth 2 times daily (before meals). Do not crush, chew, or split. ALLERGIES Ceftriaxone, Promethazine, and Lactated ringers FAMILY HISTORY Family History Problem Relation Name Age of Onset High Blood Pressure Mother Cancer Mother's Sister ovarian Diabetes Mother Breast cancer Mother's Sister Breast cancer Maternal Grandmother Colon cancer Mother's Sister SOCIAL HISTORY Social History Socioeconomic History Marital status: Single Tobacco Use Smoking status: Never Smokeless tobacco: Never Substance and Sexual Activity Alcohol use: Not Currently Drug use: Yes Types: Marijuana Comment: quit 3 mos ago Social Drivers of Health Food Insecurity: No Food Insecurity (08/22/2024) Received from [facility] Hunger Vital Sign Worried About Running Out of Food in the Last Year: Never true Ran Out of Food in the Last Year: Never true Transportation Needs: No Transportation Needs (08/22/2024) Received from [facility] PRAPARE - Transportation Lack of Transportation (Medical): No Lack of Transportation (Non-Medical): No Housing Stability: Unknown (08/22/2024) Received from [facility] Housing Stability Vital Sign Unable to Pay for Housing in the Last Year: No Homeless in the Last Year: No SCREENINGS PHYSICAL EXAM ED Triage Vitals [09/17/24 1511] Temp Heart Rate Resp BP 36.7 C (98.1 F) (!) 117 18 -- SpO2 Temp Source Heart Rate Source Patient Position 98 % Temporal Monitor -- BP Location FiO2 (%) -- -- Physical Exam Vitals and nursing note reviewed. Constitutional: General: She is not in acute distress. Appearance: She is well-developed. She is not ill-appearing. HENT: Head: Normocephalic and atraumatic. Eyes: Conjunctiva/sclera: Conjunctivae normal. Cardiovascular: Rate and Rhythm: Regular rhythm. Tachycardia present. Heart sounds: No murmur heard. Pulmonary: Effort: Pulmonary effort is normal. No respiratory distress. Breath sounds: Normal breath sounds. Abdominal: Palpations: Abdomen is soft. Tenderness: There is generalized abdominal tenderness (Mild). There is no right CVA tenderness, left CVA tenderness, guarding or rebound. Musculoskeletal: General: No swelling. Cervical back: Neck supple. Skin: General: Skin is warm and dry. Capillary Refill: Capillary refill takes less than 2 seconds. Neurological: Mental Status: She is alert. Psychiatric: Mood and Affect: Mood normal. DIAGNOSTIC RESULTS RADIOLOGY (Per Emergency Physician): Interpretation per the Radiologist below, if available at the time of this note: No orders to display LABS: Labs Reviewed CBC WITH AUTO DIFFERENTIAL - Abnormal Result Value Auto WBC 5.8 RBC 4.85 Hemoglobin 12.5 Hematocrit 38.5 MCV 79.4 MCH 25.8 (*) MCHC 32.5 RDW 15.9 (*) Platelets 276 MPV 9.4 nRBC 0.0 Neutrophils Relative 74.5 Lymphocytes Relative 16.0 Monocytes Relative 7.8 Eosinophils Relative 0.9 Basophils Relative 0.5 Immature Grans % 0.3 Neutrophils Absolute 4.3 Lymphocytes Absolute 0.9 (*) Monocytes Absolute 0.5 Eosinophils Absolute 0.1 Basophils Absolute 0.0 Immature Grans Absolute 0.0 COMPREHENSIVE METABOLIC PANEL - Abnormal SODIUM 134 (*) POTASSIUM 2.7 (*) CHLORIDE 100 CARBON DIOXIDE 19 (*) ANION GAP 15 (*) UREA NITROGEN <3 (*) CREATININE 0.79 GLUCOSE 81 CALCIUM 9.6 AST (SGOT) 21 ALT 30 (*) ALKALINE PHOSPHATASE 55 ALBUMIN 4.3 BILIRUBIN, TOTAL 0.4 TOTAL PROTEIN 7.6 eGFR >90.0 LIPASE - Abnormal LIPASE 63 (*) COMPLETE URINALYSIS - Abnormal Color, Urine Light Yellow Clarity, Urine Clear pH, Urine 5.5 Leukocytes, Urine Negative Nitrite, Urine Negative Protein, Urine 30 (*) Glucose, Urine Normal Bilirubin, Urine Negative Ketones, Urine >150 (*) Urobilinogen, Urine Normal Blood, Urine Negative RBC, Urine 0-2 WBC, Urine 3-5 Squamous Epithelial, Urine 3-5 Bacteria, Urine Few (*) Mucus, Urine Few Hyaline Casts, Urine Negative SPECIFIC GRAVITY OF URINE (NUMERIC) 1.016 LACTIC ACID WITH REFLEX - Normal LACTIC ACID 1.0 MAGNESIUM - Normal MAGNESIUM 1.7 Narrative: Higher values can be expected in females during menses. COMPLETE URINALYSIS WITH REFLEX TO CULTURE Narrative: The following orders were created for panel order Urinalysis Complete with reflex to Culture. Procedure Abnormality Status --------- ------ Complete Urinalysis[[id number]] Abnormal Final result Please view results for these tests on the individual orders. HCG QUALITATIVE URINE HCG,URINE QUAL Negative Narrative: is the most common reason for HCG in urine, although choriocarcinoma, hydatidiform mole, and certain nontrophoblastic malignancies also result in detectable urinary HCG levels. Sensitivity = 20mIU/mL. All other labs were within normal range or not returned as of this dictation. EMERGENCY DEPARTMENT COURSE and DIFFERENTIAL DIAGNOSIS/MDM: Vitals: Vitals: 09/17/24 1509 09/17/24 1511 09/17/24 1619 09/17/24 195 BP: (!) 148/109 (!) 143/110 Pulse: (!) 117 (!) 114 Resp: 18 18 Temp: 36.7 C (98.1 F) TempSrc: Temporal SpO2: 98% 99% Weight: 90.7 kg (200 lb) Height: 1.651 m (5' 5) Medications potassium chloride 40 mEq in NS 500 mL IVPB (premix) (has no administration in time range) sodium chloride 0.9 % bolus 1,000 mL (1,000 mL IntraVENous New Bag 09/17/24 175) ondansetron ODT (Zofran-ODT) disintegrating tablet 4 mg (4 mg Oral Given 09/17/241722) dicyclomine (Bentyl) capsule 10 mg (10 mg Oral Given 09/17/241722) morphine injection 4 mg (4 mg IntraVENous Given 09/17/242003) ED care was supervised by Dr. Rowley who independently examined and evaluated the patient. Please see their attestation note for further details. In brief, Addis Torres is a 24 y.o. female who presented to the emergency department for persistent abdominal pain/nausea/vomiting. Presents to the ED tachycardic at 117 bpm, afebrile, hypertensive at 148/109. Nursing notes and medical records reviewed, patient admitted 09/15 to 09/16 to the CDU for intractable nausea vomiting and abdominal pain. Was noted to be hypokalemic, this was replaced. GIwas consulted without any indications for urgent procedures, recommended continue PPI and follow-upoutpatient. Initial medical management includes Zofran, IV fluids Initial workup includes CBC, CMP, lipase, UA, hCG, lactic acid Upon reassessment patient has remained tachycardic at 114 bpm, hypertensive at 143/110. Lab workup results CBC shows no leukocytosis or anemia. CMP shows hyponatremia 134, hypokalemia of 2.7, low bicarb of 19, elevated anion gap at 15, ALT is 30, no ROSA. UA is negative for infection. Lipase is 63. Lactic acid and magnesium are within normal limits. See Epiphany for for EKG interpretation by attending, obtained given hypokalemia. IV potassium replacement ordered. Given patient's persistent tachycardia and persistent uncontrolled symptoms as well as hypokalemia with an elevated gap and low bicarb, will plan for observation for further evaluation and managementof her symptoms. Patient agreeable plan. Discussed with hospitalist Dr. Nieves who accepted the patient for admission. PROCEDURES: Unless otherwise noted below, none Procedures FINAL IMPRESSION 1. Hypokalemia 2. Intractable abdominal pain 3. Nausea and vomiting, unspecified vomiting type DISPOSITION Observation 09/17/2024 08:01:19 PM PATIENT REFERRED TO: No follow-up provider specified. DISCHARGE MEDICATIONS: New Prescriptions No medications on file (Comment: Please note this report has been produced using speech recognition software and may contain errors related to that system including errors in grammar, punctuation, and spelling, as well as words and phrases that may be inappropriate. If there are any questions or concerns please feel freeto contact the dictating provider for clarification.) Hiwot Reaves PA-C (electronically signed) Emergency Medicine Provider Hiwot Reaves PA-C 09/17/242007 Cosigned by Heriberto Rowley MD at 09/27/2024 3:19 PM EST documented in this [facility]01-11-2025 Emergency department Note* Carolina De La Torre RN - 09/17/2024 4:15 PM EST This RN attempted IV insertion in right AC with no success. [id number] Physician Emergency department Note* Heriberto Rowley MD - 09/17/2024 2:28 PM EST Emergency Department Encounter [facility] EMERGENCY DEPT Patient: Addis Torres : 2000 Date of Evaluation: 09/17/2024 ED Supervising Physician: Heriberto Rowley MD I personally evaluated Addis Torres and made/approved the management plan and take responsibility for the patient management. This will serve as my Supervisory note and shared attestation. I did perform a substantive portion of the visit including all aspects of the Medical Decision Making. I wore appropriate PPE for the entirety of this encounter. In brief, Addis Torres is a 24 y.o. that presents to the emergency department For evaluation of left lower quadrant abdominal pain. Patient states pain has been present for 3 months. She was just discharged from the CDU after a 24-hour observation stay where no significant derangements were found other than hypokalemia which was treated with IV potassium. Patient discharged after GI consult recommended outpatient follow-up. Some suspicion for cannabinoid hyperemesis as patient did have positive urine drug screen for THC but denied any marijuana use for 3 months. Patient refused capsaicin cream treatment. She presents today stating that she had no relief or improvement in symptoms during her observation. And was discharged in the same condition. She states the pain has continued to worsen. She states that she has not been able to eat or drink at all for 3 months. Patient reports past medical history of cholecystectomy. Focused exam: Awake, alert, appears uncomfortable but in no acute distress. Tachycardic with normalheart sounds. Normal respiratory rate and effort. Extremities unremarkable. Elevated BMI. Tender topalpation left lower quadrant without rebound, guarding, or other peritoneal signs. Remainder of abdomen is nontender to palpation with no palpable abnormalities. Extremities unremarkable. Brief ED course/MDM: Patient presents for evaluation of left lower quadrant abdominal pain that hasbeen present for 3 months. Patient was just discharged after 24-hour observation admission to the CDU for the same complaint. She states it is no better or worse than prior to that admission. She states that during her admission she did not have any significant relief but was discharged the next day anyway. Some suspicion for cannabinoid hyperemesis. According to chart review, patient reported that she has not used marijuana in the last 3 months however had a positive test. Nontender to palpation throughout the abdomen. Workup revealed hypokalemia at 2.7, urinary ketosis, mildly elevated lipase at 63 but otherwise unremarkable on CBC, lactic acid. She does have an anion gap and decreased bicarb. This could be secondary to excessive GI losses. Urine screen is negative. Patient provided Zofran, Bentyl, and IV fluids in the ED. Supplemental potassium also initiated. Given the significantly decreased level of feel she does warrant admission for repletion and continued management. Diagnostics interpreted by me: none I personally discussed the patient's management with other clinicians: none All diagnostic, treatment, and disposition decisions were made by myself in conjunction with the JAIRO. For all further details of the patient's emergency department visit, please see their documentation. (Comment: Please note this report has been produced using speech recognition software and may contain errors related to that system including errors in grammar, punctuation, and spelling, as well as words and phrases that may be inappropriate. If there are any questions or concerns please feel freeto contact the dictating provider for clarification.) Heriberto Rowley MD Acute [facility] [place] Heriberto Rowley MD 09/17/241916 [employer] Phone: [phone]) 332-460701-11-2025 Physician Emergency department Note* Hiwot Reaves PA-C - 09/17/2024 2:28 PM EST EMERGENCY DEPARTMENT ENCOUNTER Pt Name: Addis Torres Birthdate 2000 Date of evaluation: 09/17/2024 ED Provider: Hiwot Reaves PA-C CHIEF COMPLAINT Chief Complaint Patient presents with Abdominal Pain Patient c/o abd pain/nausea/vomiting x 3 months. Patient stating pain is now a 10/10. States the pain causes the nausea/vomiting. Patient currently a/o x 4. GCS 15. No distress noted. HISTORY OF PRESENT ILLNESS (Location/Symptom, Timing/Onset, Context/Setting, Quality, Duration, Modifying Factors, Severity) Note limiting factors. I wore appropriate PPE for the entirety of this encounter. HPI Addis Torres is a 24 y.o. female who presents to the emergency department for abdominal pain, nausea, vomiting ongoing for the past 3 months. Recent admission for chronic abdominal pain. Presentedback to the ED for persistent abdominal pain and associated nausea vomiting. Endorses history of cho lecystectomy. no other abdominal surgeries. Denies fever, chills. Patient endorses not being able to eat or drink for the past 3 months. Nursing Notes were reviewed. Limitations to history: None Outside historians: None REVIEW OF SYSTEMS Review of Systems 14 systems reviewed, positives and pertinent negatives as per HPI. All other systems were reviewed and are negative. PAST MEDICAL HISTORY Past Medical History: Diagnosis Date Anxiety Cancer (CMS/HCC) (HCC) s/p TIARRA 12/2020 with cervix removed and salpingectomy Depression Intraoperative ureteral injury Migraine PCOS (polycystic ovarian syndrome) SURGICAL HISTORY Past Surgical History: Procedure Laterality Date CHOLECYSTECTOMY COLONOSCOPY 02/28/2021 CYSTOSCOPY 12/26/2020 C and P CYSTOSCOPY Left 07/28/2021 Cystoscopy, pyelograms, left antegrade nephrostogram, left nephrostomy tube removal, left ureteral stent exchange (6fr 26cm) DILATION AND CURETTAGE OF UTERUS 11/08/2020 HYSTEROSCOPY 11/08/2020 OTHER SURGICAL HISTORY Left 07/28/2021 Stent exchange OTHER SURGICAL HISTORY 09/09/2021 Robotic assisted laparoscopic left ureteroureterotomy, ureterotomy with insertion of antegrade stent SALPINGECTOMY Bilateral 12/18/2020 Dr. Escobedo TOTAL ABDOMINAL HYSTERECTOMY 12/18/[address] Escobedo URETERAL STENT PLACEMENT Left 02/12/2021 CURRENT MEDICATIONS Previous Medications CAPSAICIN (ZOSTRIX) 0.025 % CREAM Apply topically 2 times daily as needed for mild pain (1-3) (Apply to abdomen). MIRTAZAPINE (REMERON) 7.5 MG TABLET Take 1 tablet (7.5 mg) by mouth Nightly. PANTOPRAZOLE (PROTONIX) 40 MG EC TABLET Take 1 tablet (40 mg) by mouth 2 times daily (before meals). Do not crush, chew, or split. ALLERGIES Ceftriaxone, Promethazine, and Lactated ringers FAMILY HISTORY Family History Problem Relation Name Age of Onset High Blood Pressure Mother Cancer Mother's Sister ovarian Diabetes Mother Breast cancer Mother's Sister Breast cancer Maternal Grandmother Colon cancer Mother's Sister SOCIAL HISTORY Social History Socioeconomic History Marital status: Single Tobacco Use Smoking status: Never Smokeless tobacco: Never Substance and Sexual Activity Alcohol use: Not Currently Drug use: Yes Types: Marijuana Comment: quit 3 mos ago Social Drivers of Health Food Insecurity: No Food Insecurity (08/22/2024) Received from [facility] Hunger Vital Sign Worried About Running Out of Food in the Last Year: Never true Ran Out of Food in the Last Year: Never true Transportation Needs: No Transportation Needs (08/22/2024) Received from [facility] PRAPARE - Transportation Lack of Transportation (Medical): No Lack of Transportation (Non-Medical): No Housing Stability: Unknown (08/22/2024) Received from [facility] Housing Stability Vital Sign Unable to Pay for Housing in the Last Year: No Homeless in the Last Year: No SCREENINGS PHYSICAL EXAM ED Triage Vitals [09/17/24 1511] Temp Heart Rate Resp BP 36.7 C (98.1 F) (!) 117 18 -- SpO2 Temp Source Heart Rate Source Patient Position 98 % Temporal Monitor -- BP Location FiO2 (%) -- -- Physical Exam Vitals and nursing note reviewed. Constitutional: General: She is not in acute distress. Appearance: She is well-developed. She is not ill-appearing. HENT: Head: Normocephalic and atraumatic. Eyes: Conjunctiva/sclera: Conjunctivae normal. Cardiovascular: Rate and Rhythm: Regular rhythm. Tachycardia present. Heart sounds: No murmur heard. Pulmonary: Effort: Pulmonary effort is normal. No respiratory distress. Breath sounds: Normal breath sounds. Abdominal: Palpations: Abdomen is soft. Tenderness: There is generalized abdominal tenderness (Mild). There is no right CVA tenderness, left CVA tenderness, guarding or rebound. Musculoskeletal: General: No swelling. Cervical back: Neck supple. Skin: General: Skin is warm and dry. Capillary Refill: Capillary refill takes less than 2 seconds. Neurological: Mental Status: She is alert. Psychiatric: Mood and Affect: Mood normal. DIAGNOSTIC RESULTS RADIOLOGY (Per Emergency Physician): Interpretation per the Radiologist below, if available at the time of this note: No orders to display LABS: Labs Reviewed CBC WITH AUTO DIFFERENTIAL - Abnormal Result Value Auto WBC 5.8 RBC 4.85 Hemoglobin 12.5 Hematocrit 38.5 MCV 79.4 MCH 25.8 (*) MCHC 32.5 RDW 15.9 (*) Platelets 276 MPV 9.4 nRBC 0.0 Neutrophils Relative 74.5 Lymphocytes Relative 16.0 Monocytes Relative 7.8 Eosinophils Relative 0.9 Basophils Relative 0.5 Immature Grans % 0.3 Neutrophils Absolute 4.3 Lymphocytes Absolute 0.9 (*) Monocytes Absolute 0.5 Eosinophils Absolute 0.1 Basophils Absolute 0.0 Immature Grans Absolute 0.0 COMPREHENSIVE METABOLIC PANEL - Abnormal SODIUM 134 (*) POTASSIUM 2.7 (*) CHLORIDE 100 CARBON DIOXIDE 19 (*) ANION GAP 15 (*) UREA NITROGEN <3 (*) CREATININE 0.79 GLUCOSE 81 CALCIUM 9.6 AST (SGOT) 21 ALT 30 (*) ALKALINE PHOSPHATASE 55 ALBUMIN 4.3 BILIRUBIN, TOTAL 0.4 TOTAL PROTEIN 7.6 eGFR >90.0 LIPASE - Abnormal LIPASE 63 (*) COMPLETE URINALYSIS - Abnormal Color, Urine Light Yellow Clarity, Urine Clear pH, Urine 5.5 Leukocytes, Urine Negative Nitrite, Urine Negative Protein, Urine 30 (*) Glucose, Urine Normal Bilirubin, Urine Negative Ketones, Urine >150 (*) Urobilinogen, Urine Normal Blood, Urine Negative RBC, Urine 0-2 WBC, Urine 3-5 Squamous Epithelial, Urine 3-5 Bacteria, Urine Few (*) Mucus, Urine Few Hyaline Casts, Urine Negative SPECIFIC GRAVITY OF URINE (NUMERIC) 1.016 LACTIC ACID WITH REFLEX - Normal LACTIC ACID 1.0 MAGNESIUM - Normal MAGNESIUM 1.7 Narrative: Higher values can be expected in females during menses. COMPLETE URINALYSIS WITH REFLEX TO CULTURE Narrative: The following orders were created for panel order Urinalysis Complete with reflex to Culture. Procedure Abnormality Status --------- ------ Complete Urinalysis[[id number]] Abnormal Final result Please view results for these tests on the individual orders. HCG QUALITATIVE URINE HCG,URINE QUAL Negative Narrative: is the most common reason for HCG in urine, although choriocarcinoma, hydatidiform mole, and certain nontrophoblastic malignancies also result in detectable urinary HCG levels. Sensitivity = 20mIU/mL. All other labs were within normal range or not returned as of this dictation. EMERGENCY DEPARTMENT COURSE and DIFFERENTIAL DIAGNOSIS/MDM: Vitals: Vitals: 09/17/24 1509 09/17/24 1511 09/17/24 1619 09/17/24 1957 BP: (!) 148/109 (!) 143/110 Pulse: (!) 117 (!) 114 Resp: 18 18 Temp: 36.7 C (98.1 F) TempSrc: Temporal SpO2: 98% 99% Weight: 90.7 kg (200 lb) Height: 1.651 m (5' 5) Medications potassium chloride 40 mEq in NS 500 mL IVPB (premix) (has no administration in time range) sodium chloride 0.9 % bolus 1,000 mL (1,000 mL IntraVENous New Bag 09/17/241755) ondansetron ODT (Zofran-ODT) disintegrating tablet 4 mg (4 mg Oral Given 09/17/241722) dicyclomine (Bentyl) capsule 10 mg (10 mg Oral Given 09/17/241722) morphine injection 4 mg (4 mg IntraVENous Given 09/17/242003) ED care was supervised by Dr. Rowley who independently examined and evaluated the patient. Please see their attestation note for further details. In brief, Addis Torres is a 24 y.o. female who presented to the emergency department for persistent abdominal pain/nausea/vomiting. Presents to the ED tachycardic at 117 bpm, afebrile, hypertensive at 148/109. Nursing notes and medical records reviewed, patient admitted 09/15 to 09/16 to the CDU for intractable nausea vomiting and abdominal pain. Was noted to be hypokalemic, this was replaced. GIwas consulted without any indications for urgent procedures, recommended continue PPI and follow-upoutpatient. Initial medical management includes Zofran, IV fluids Initial workup includes CBC, CMP, lipase, UA, hCG, lactic acid Upon reassessment patient has remained tachycardic at 114 bpm, hypertensive at 143/110. Lab workup results CBC shows no leukocytosis or anemia. CMP shows hyponatremia 134, hypokalemia of 2.7, low bicarb of 19, elevated anion gap at 15, ALT is 30, no ROSA. UA is negative for infection. Lipase is 63. Lactic acid and magnesium are within normal limits. See Epiphany for for EKG interpretation by attending, obtained given hypokalemia. IV potassium replacement ordered. Given patient's persistent tachycardia and persistent uncontrolled symptoms as well as hypokalemia with an elevated gap and low bicarb, will plan for observation for further evaluation and managementof her symptoms. Patient agreeable plan. Discussed with hospitalist Dr. Nieves who accepted the patient for admission. PROCEDURES: Unless otherwise noted below, none Procedures FINAL IMPRESSION 1. Hypokalemia 2. Intractable abdominal pain 3. Nausea and vomiting, unspecified vomiting type DISPOSITION Observation 09/17/2024 08:01:19 PM PATIENT REFERRED TO: No follow-up provider specified. DISCHARGE MEDICATIONS: New Prescriptions No medications on file (Comment: Please note this report has been produced using speech recognition software and may contain errors related to that system including errors in grammar, punctuation, and spelling, as well as words and phrases that may be inappropriate. If there are any questions or concerns please feel freeto contact the dictating provider for clarification.) Hiwot Reaves PA-C (electronically signed) Emergency Medicine Provider Hiwot Reaves PA-C 09/17/242007 Cosigned by Heriberto Rowley MD at 09/27/2024 3:19 PM EST [id number]* Anali Poole RN - 09/16/2024 5:55 PM EST Discharge orders received, reviewed home going instructions, follow up appointments and medications. Pt states that she has had a skin reaction to the Capsaicin cream and refused to take it. I immediately called meds to beds to cancel that medication and updated A RIVKA Acosta. All personal belongings gathered and accounted for. Hep lock removed and occlusive dressing applied. Pt and significant other verbalized understanding of all instructions and information. Also emphasized phone numbers r/tpsychiatric help if needed. Pt left unit on her own to meet her ride. [id number] Nurse Note* Anali Poole RN - 09/16/2024 5:55 PM EST Discharge orders received, reviewed home going instructions, follow up appointments and medications. Pt states that she has had a skin reaction to the Capsaicin cream and refused to take it. I immediately called meds to beds to cancel that medication and updated A RIVKA Acosta. All personal belongings gathered and accounted for. Hep lock removed and occlusive dressing applied. Pt and significant other verbalized understanding of all instructions and information. Also emphasized phone numbers r/tpsychiatric help if needed. Pt left unit on her own to meet her ride. * Anali Poole RN - 09/16/2024 12:52 PM EST Again reinforced with pt need to order something to eat. Full liq diet. Pt states that she gets nauseated even looking at food, everything makes her nauseated and sick. * Chiquita Schultz RN - 09/15/2024 8:15 PM EST Patient IV infiltrated. Patient reported to this RN that her current IV was placed with the use of ultrasound guide. This RN tried twice and was unable to get access. CONTENT SPECIALIST called for help of new IV placement. * Anali Poole RN - 09/15/2024 6:00 PM EST Encouraged pt to order a meal. Pt aware that she is on a clear liq diet till 12 midnight * Anali Poole RN - 09/15/2024 5:30 PM EST Received pt from ER via wheelchair to CDU 102, oriented to CDU routine, use of call light, TV. Reviewed with pt current complaint and symptoms, Pmh and medications. Epic/navigator updated and completed. Reviewed with pt current plan of care and NPO status after midnight. Sig other at bedside. documented in this [facility]01[facility]10[facility]2025 [facility] 09-16-2024 Hospital Discharge instructions* Discharge Instr - Activity* NOMAN Meyer CNP - 09/16/2024 4:29 PM EST NO RESTRICTIONS * Discharge Instr - Diet* NOMAN Meyer CNP - 09/16/2024 4:29 PM EST EAT A BLAND, SOFT DIET AND ADVANCE TO REGULAR WHEN ABLE TO TOLERATE * Additional Instructions* Alfonso Iniguez MD - 09/16/2024 4:12 PM EST Images from the original note were not included. You have been evaluated in the hospital for a behavioral health problem. This evaluation did not result in a recommendation for hospitalization, but your symptoms may roll changer time, which is why it is important to follow-up. I recommend you contact the following mental health provider(s) to schedule an appointment as soon as possible: [x] [facility]; [facility] (Psychiatry, Counseling,Addiction Services); [address], [address], [place] [address]; [] [facility]; (Psychiatry, Counseling, Addiction Services); [address], [address], [facility] [address]; [] [facility] (Psychiatry, Counseling); [address] [place] [address]; [] [facility]; (Psychiatry, Counseling); [address], [address], [place] [address]; [] [facility]; (Psychiatry, Counseling); [address] [place] [address]; [] [facility]; (Psychiatry, Counseling); [address], [place] [address]; [] [facility]; (Psychiatry, Counseling); [address], [address], [place] [address]; [] [email or web address] (Counseling, Group); [address] [place] [address]; [] [facility] (Psychiatry, Counseling, Case Management); [address] [place] [address]; [] [facility] (Counseling, Group - has evening hours); [address] [place] [address]; [] [facility] (Psychiatry, Counseling, Case Management, Addiction Services); [address] [place] [address]; [] [facility] (Psychiatry, Counseling, Case Management, Addiction Services); [address] [address] [facility] [address] [facility] [address], [place] [address]; [] [facility] (Psychiatry, Counseling, Case Management, Addiction Services); [address], [address], [place] [address]; [] [facility] (Counseling); [address] [place] [address]; [] [facility] (Psychiatry, Counseling, Case Management - has evening and weekend hours); [address] [place] [address]; If you or someone you know is struggling or in crisis, help is available. Call or text 020 or chat [email or web address]. -OR- Call the [facility] Crisis Hotline at 236-422-9519 -OR- Visit [facility] Psychiatric Emergency Services, in person, at [address] [place] [phone]; You should return to the Emergency Department or call 911 immediately if your symptoms worsen, new symptoms develop, or if you can no longer keep yourself or others safe. * Attachments The following attachments cannot be sent through Care Everywhere. * Cannabis Hyperemesis Syndrome (Turkmen) * [place] Diet (Turkmen) documented in this [facility]01-10-2025 Consult note* Ghazala Howard, PARDEEP - 09/16/2024 2:15 PM ESTAssociated Order(s): IP CONSULT TO DIETITIAN Nutrition Assessment Type and Reason for Visit: Initial, Consult, Positive Nutrition Screen (MST 5; c/s) Nutrition Recommendations/Plan: Pt meets ASPEN/AND criteria for malnutrition as indicated below Continue Adult diet Full liquid as tolerated Supplement(s): Patient declined at this time, including ensure juice and [employer] - has trialed before and not able to tolerate Now with D/C order for home, to follow as OP - defer nutrition/feeding plan to same Historically poor tolerance to EN via NGT, tube in pt's throat caused gag/emesis. Fluid/mineral replete per primary Will continue to monitor labs, meds, po intakes and/or enteral nutrition tolerance, skin integrity,wt trends, and overall nutrition status - RD to follow weekly Malnutrition Assessment: Malnutrition Status: Severe malnutrition (multifactorial - chronic N/V, recurrent admissions for same; chronic pain since 2020 s/p hysterectomy, psych component as well (anxiety/depression/trauma hx), and active cannabis use) Context: Chronic Illness Findings of the 6 clinical characteristics of malnutrition: Energy Intake: 75% or less estimated energy requirements for 1 month or longer (3 MO hx) Weight Loss: 7.5% over 3 months (~55# wt loss x 3 MOs (pt states UBW ~ 250-260#, CBW via SS 201#)) Body Fat Loss: Mild body fat loss Orbital Muscle Mass Loss: Unable to assess Fluid Accumulation: No significant fluid accumulation Supervisor [employer] Strength: Not Performed Chief Complaint Patient presents with Abdominal Pain For last 3 months, worse yesterday and today, many emesis yesterday, denies diarrhea. Past Medical and Surgical History: Past Medical History: Diagnosis Date Anxiety Cancer (CMS/HCC) (HCC) s/p TIARRA 12/2020 with cervix removed and salpingectomy Depression Intraoperative ureteral injury Migraine PCOS (polycystic ovarian syndrome) Past Surgical History: Procedure Laterality Date CHOLECYSTECTOMY COLONOSCOPY 02/28/2021 CYSTOSCOPY 12/26/2020 C and P CYSTOSCOPY Left 07/28/2021 Cystoscopy, pyelograms, left antegrade nephrostogram, left nephrostomy tube removal, left ureteral stent exchange (6fr 26cm) DILATION AND CURETTAGE OF UTERUS 11/08/2020 HYSTEROSCOPY 11/08/2020 OTHER SURGICAL HISTORY Left 07/28/2021 Stent exchange OTHER SURGICAL HISTORY 09/09/2021 Robotic assisted laparoscopic left ureteroureterotomy, ureterotomy with insertion of antegrade stent SALPINGECTOMY Bilateral 12/18/2020 Dr. Escobedo TOTAL ABDOMINAL HYSTERECTOMY 12/18/[address] Escobedo URETERAL STENT PLACEMENT Left 02/12/2021 HISTORY OF PRESENT ILLNESS (Per GI 09/16/24): The patient is a 24 y.o. female with significant past medical history of uterine Ca s/p hysterectomy (2020), gastroparesis, cyclic vomiting, marijuana use who presented to the ED for intractable nausea/vomiting. Patient c/o symptoms have been occurring for 3 months. Upon chart review patient has had extensive stay at [facility]. Reviewed ED provider note from 09/09/24 M Armando ERWIN. Was admitted from July 29-September 05. Upper scopic cholecystectomy performed at [place] on 08-11, and then was transferred to [facility] on 08-14 for further GI consult. Had upperendoscopy performed which showed gastritis, but was otherwise unremarkable. Of note, patient did require psychiatry consult because she was witnessed taking her fingers down her throat to induce emesis. Patient was noted to be persistently tachycardic during her admission, but did have negative CTAstudy for PE. Patient discharged on 09-05 with plans to follow-up with GI provider, PCP, and psych. Patient has GI Dr. Friend at [place] [facility] following and told her he did not have anymore options for her. Endorses THC edible use but quit 2 months ago because her GI doctor told her this could be the cause but she still is having the pain and vomiting. Toxicology + for cannabinoids in urine 08/26/24. Current toxicology pending. Does not drink alcohol frequently, no nicotine use. Patient reports constant LUQ pain 05/17, only improved with dilaudid. States last episode of emesis was yesterday, no hematemesis. Episodes of emesis increase with food intake. Last BM 2 days ago, nonbloody and soft. No change in bowel or bladder function. Patient sitting up comfortably during exam. Last EGD: 07/2024 noting small HH, gastritis (bx neg for HP), normal duodenum. Last colonoscopy: none Nutrition Assessment: 24F w/ PMHx: Uterine Ca s/p hysterectomy (2020), gastroparesis, cyclic vomiting, marijuana use, ands/p recent extensive [facility] admission 07/29-09/05 who p/w intractable N/V. Sx ongoing for 3 MOs. Negative EGD 07/2024. Pt has had negative EGD 07/2024, negative gastric emptying scan 08/2024, negative CT 09/2024, normal lipase, AST and ALT 09/16/24; pt has hx of marijuana abuse. Psych services c/s as pthad witnessed induced vomiting int he past - pending. CLD advanced to FLD at 1116 today, however the pt declines tray per nsg. Pt states that she gets nauseated even looking at food, everything makes her nauseated and sick. No admission wt and limited wt hx ~ 170# back in 2021. RD previously obtained bed scale wt of 174# on 09/16/21. Of note pt has met chronic sev mal criteria per RD eval 09/16/21. Declines ONS at that time. Pt is seen at bedside, her SO is present. She endorses a chronic hx ofintractable nausea, abd pain x 3 Mos. She was not able to tolerate jello today, at bedside states the smell of it is upsetting her. She had a SS wt of 201# this admission. No fat/muscle wasting is noted per NFPA, aside from mild orbital wasting. Of note, her tox screen was + for marijuana which cancause cannabis hyperemesis syndrome. Furthermore her prior gastric emptying study was normal. When asked about this she states they did the test differently. Says the test was done differently. They had her get up and down between x ray images. Per nsg she does have several cats (17) at home.Pt and SO are trying to re home them. Room has strong odor of cat urine/ammonia. During her prior admission she states tshe was trialed on EN for nutrition and she was not able to tolerate via NG. Says the feeling of the tube to the back of her throat would cause her to feel nauseated and she wouldvomit the EN. Declines all ONS. Psych saw pt today - pending note was read. ?Consideration of possible Remeron noted. POC and visit d/w nsg and DRIP MOLDER while on the unit. Abnl labs/Hypokalemia noted. Estimated Daily Nutrient Needs: Energy Requirements Based On: Kcal/kg Weight Used for Energy Requirements: [place] Weight for Energy Calculation (kg): 57 kg Total Energy Requirements (kcals/day): 2418-1232 (25-30 kcals/kg) Weight Used for Protein Requirements: [place] Weight in Kg Used for Protein Requirements: 57 kg Estimated Total Protein (g/day): 57-68 (1-1.2 g/kg) Estimated Daily Total Fluid (ml/day): 1 ml/kcal or per MD Nutrition Related Findings: Wound Type: None (ecchymosis) Isolation Status: No active isolations Food Allergies: NKFA Room Service: Selective Sachin Scale Score: 20 Peripheral Vascular (WDL): Within Defined Limits Abdomen Inspection: Soft, Distended; Abdominal Tenderness: Tenderness Bowel Sounds (All Quadrants): Active; Passing Flatus: Yes Last BM Date: (unsure) Gastrointestinal Symptoms: Nausea; Nausea Precipitating Factors: Other (Comment) (chronic) GI symptoms: Decreased appetite, Nausea, and Abdominal Painchronic N/V Nutrition History: Independent of feeding and Lives with SO at home Code Status, Oxygen Needs, Vital Signs, I/Os: Code Status: Full Code Oxygen Therapy SpO2: 100 % Oxygen Therapy: None (Room air) Vital Signs: Temp: 36.2 C (97.2 F); Heart Rate: 99; Resp: 18; BP: (!) 148/105; MAP (mmHg): 119 Net IO Since Admission: 1,808.32 mL [09/16/241724] Intake/Output Summary (Last 24 hours) at 09/16/20241724 Last data filed at 09/16/2024 1209 Gross per 24 hour Intake 1808.32 ml Output -- Net 1808.32 ml Labs/Meds Reviewed: metoclopramide, 10 mg, IntraVENous, q6h pantoprazole (ProtoNix) 40 mg in sodium chloride (PF) 0.9 % 10 mL injection, 40 mg, IntraVENous, BID sodium chloride 0.9%, 10 mL, IntraVENous, 2 times per day sucralfate, 1 g, Oral, 4x daily AC & HS sodium chloride, 125 mL/hr, Last Rate: 125 mL/hr (09/16/24 1209) BMP: Recent Labs 09/15/24 1149 09/16/24 0649 NA 136 138 K 3.1* 3.1* CL 101 109* CO2 18* 19* BUN <3* <3* CREATININE 0.77 0.58 GLUCOSE 90 74 CALCIUM 9.7 8.3* MG 1.8 1.6 HEPATIC: Recent Labs 09/15/24 1149 09/16/24 0649 AST 29 18 ALT 33* 22 BILITOT 0.4 0.3 ALKPHOS 63 45 CBC: Recent Labs 09/15/24 1149 09/16/24 0649 WBC 7.0 6.2 HGB 13.3 10.9* HCT 40.7 34.5* MCV 78.6 81.9 PLT 337 249 Lab Results Component Value Date LACTATE 1.2 09/15/2024 LACTATE 1.1 10/03/2021 LACTATE 1.5 09/02/2021 Current Nutrition Therapies: Adult diet Full liquid Current Oral Intake Average Meal Intake: (FLD) Average Supplements Intake: None Ordered Anthropometric Measures: Height: 165.1 cm (5' 5) Current Body Weight: 91.2 kg (201 lb) Weight Source: Standing Scale Usual Body Weight: (per pt and SOx, UBW was 250-260# 3 MOs ago) [place] Body Weight (lbs) (Calculated): 125 lbs [place] Body Weight (Kg) (Calculated): 57 kg % [place] Body Weight (Calculated): 160.8 % BMI (kg/m2) (Calculated): 33.4 Weight Adjustment For: No Adjustment BMI (Calculated): 33.45 Weight: 91.2 kg (201 lb) Weight Method: Standing scale Nutrition Diagnosis: In context of chronic illness, Severe malnutrition related to pain, inadequate protein-energy intake, other (comment), psychological cause or life stress (multifactorial - chronic N/V, recurrent admissions for same; chronic pain since 2020 s/p hysterectomy, psych component as well (anxiety/depression/trauma hx), and active cannabis use) as evidenced by GI abnormality, nausea, vomiting, weight loss 7.5% in 3 months, Criteria as identified in malnutrition assessment, intake 0-25%, mild loss of subcutaneous fat, lab values (3 MO hx intractable N/V) Nutrition Interventions: Food and/or Nutrient Delivery: Continue Current Diet Nutrition Education/Counseling: Survival skills/brief education completed Coordination of Nutrition Care: Continue to monitor while inpatient Plan of Care discussed with: Patient, Nurse, Spouse/Significant Other, and DRIP MOLDER (Gamal Acosta) Goals: Goals: PO intake 50% or greater Nutrition Monitoring and Evaluation: Behavioral-Environmental Outcomes: Beliefs and Attitutes, Readiness for Change Food/Nutrient Intake Outcomes: Diet Advancement/Tolerance, Supplement Intake, Food and Nutrient Intake Physical Signs/Symptoms Outcomes: Weight, Biochemical Data, GI Status, Nausea or Vomiting, Nutrition Focused Physical Findings Discharge Planning: Too soon to determine Ghazala Howard MS, RD, LD Contact: or ipadio Chat (dial *[phone] from hospital phone) [phone] Consult note* Ghazala Howard RD - 09/16/2024 2:15 PM EST Associated Order(s): IP CONSULT TO DIETITIAN Nutrition Assessment Type and Reason for Visit: Initial, Consult, Positive Nutrition Screen (MST 5; c/s) Nutrition Recommendations/Plan: Pt meets ASPEN/AND criteria for malnutrition as indicated below Continue Adult diet Full liquid as tolerated Supplement(s): Patient declined at this time, including ensure juice and [employer] - has trialed before and not able to tolerate Now with D/C order for home, to follow as OP - defer nutrition/feeding plan to same Historically poor tolerance to EN via NGT, tube in pt's throat caused gag/emesis. Fluid/mineral replete per primary Will continue to monitor labs, meds, po intakes and/or enteral nutrition tolerance, skin integrity,wt trends, and overall nutrition status - RD to follow weekly Malnutrition Assessment: Malnutrition Status: Severe malnutrition (multifactorial - chronic N/V, recurrent admissions for same; chronic pain since 2020 s/p hysterectomy, psych component as well (anxiety/depression/trauma hx), and active cannabis use) Context: Chronic Illness Findings of the 6 clinical characteristics of malnutrition: Energy Intake: 75% or less estimated energy requirements for 1 month or longer (3 MO hx) Weight Loss: 7.5% over 3 months (~55# wt loss x 3 MOs (pt states UBW ~ 250-260#, CBW via SS 201#)) Body Fat Loss: Mild body fat loss Orbital Muscle Mass Loss: Unable to assess Fluid Accumulation: No significant fluid accumulation Supervisor [employer] Strength: Not Performed Chief Complaint Patient presents with Abdominal Pain For last 3 months, worse yesterday and today, many emesis yesterday, denies diarrhea. Past Medical and Surgical History: Past Medical History: Diagnosis Date Anxiety Cancer (CMS/HCC) (HCC) s/p TIARRA 12/2020 with cervix removed and salpingectomy Depression Intraoperative ureteral injury Migraine PCOS (polycystic ovarian syndrome) Past Surgical History: Procedure Laterality Date CHOLECYSTECTOMY COLONOSCOPY 02/28/2021 CYSTOSCOPY 12/26/2020 C and P CYSTOSCOPY Left 07/28/2021 Cystoscopy, pyelograms, left antegrade nephrostogram, left nephrostomy tube removal, left ureteral stent exchange (6fr 26cm) DILATION AND CURETTAGE OF UTERUS 11/08/2020 HYSTEROSCOPY 11/08/2020 OTHER SURGICAL HISTORY Left 07/28/2021 Stent exchange OTHER SURGICAL HISTORY 09/09/2021 Robotic assisted laparoscopic left ureteroureterotomy, ureterotomy with insertion of antegrade stent SALPINGECTOMY Bilateral 12/18/2020 Dr. Escobedo TOTAL ABDOMINAL HYSTERECTOMY 12/18/[address] Escobedo URETERAL STENT PLACEMENT Left 02/12/2021 HISTORY OF PRESENT ILLNESS (Per GI 09/16/24): The patient is a 24 y.o. female with significant past medical history of uterine Ca s/p hysterectomy (2020), gastroparesis, cyclic vomiting, marijuana use who presented to the ED for intractable nausea/vomiting. Patient c/o symptoms have been occurring for 3 months. Upon chart review patient has had extensive stay at [facility]. Reviewed ED provider note from 09/09/24 M Armando ERWIN. Was admitted from July 29-September 05. Upper scopic cholecystectomy performed at [place] on 08-11, and then was transferred to [facility] on 08-14 for further GI consult. Had upperendoscopy performed which showed gastritis, but was otherwise unremarkable. Of note, patient did require psychiatry consult because she was witnessed taking her fingers down her throat to induce emesis. Patient was noted to be persistently tachycardic during her admission, but did have negative CTAstudy for PE. Patient discharged on 09-05 with plans to follow-up with GI provider, PCP, and psych. Patient has GI Dr. Combs at [place] following and told her he did not have anymore options for her. Endorses THC edible use but quit 2 months ago because her GI doctor told her this could be the cause but she still is having the pain and vomiting. Toxicology + for cannabinoids in urine 08/26/24. Current toxicology pending. Does not drink alcohol frequently, no nicotine use. Patient reports constant LUQ pain 05/17, only improved with dilaudid. States last episode of emesis was yesterday, no hematemesis. Episodes of emesis increase with food intake. Last BM 2 days ago, nonbloody and soft. No change in bowel or bladder function. Patient sitting up comfortably during exam. Last EGD: 07/2024 noting small HH, gastritis (bx neg for HP), normal duodenum. Last colonoscopy: none Nutrition Assessment: 24F w/ PMHx: Uterine Ca s/p hysterectomy (2020), gastroparesis, cyclic vomiting, marijuana use, ands/p recent extensive [facility] admission 07/29-09/05 who p/w intractable N/V. Sx ongoing for 3 MOs. Negative EGD 07/2024. Pt has had negative EGD 07/2024, negative gastric emptying scan 08/2024, negative CT 09/2024, normal lipase, AST and ALT 09/16/24; pt has hx of marijuana abuse. Psych services c/s as pthad witnessed induced vomiting int he past - pending. CLD advanced to FLD at 1116 today, however the pt declines tray per nsg. Pt states that she gets nauseated even looking at food, everything makes her nauseated and sick. No admission wt and limited wt hx ~ 170# back in 2021. RD previously obtained bed scale wt of 174# on 09/16/21. Of note pt has met chronic sev mal criteria per RD eval 09/16/21. Declines ONS at that time. Pt is seen at bedside, her SO is present. She endorses a chronic hx ofintractable nausea, abd pain x 3 Mos. She was not able to tolerate jello today, at bedside states the smell of it is upsetting her. She had a SS wt of 201# this admission. No fat/muscle wasting is noted per NFPA, aside from mild orbital wasting. Of note, her tox screen was + for marijuana which cancause cannabis hyperemesis syndrome. Furthermore her prior gastric emptying study was normal. When asked about this she states they did the test differently. Says the test was done differently. They had her get up and down between x ray images. Per nsg she does have several cats (17) at home.Pt and SO are trying to re home them. Room has strong odor of cat urine/ammonia. During her prior admission she states tshe was trialed on EN for nutrition and she was not able to tolerate via NG. Says the feeling of the tube to the back of her throat would cause her to feel nauseated and she wouldvomit the EN. Declines all ONS. Psych saw pt today - pending note was read. ?Consideration of possible Remeron noted. POC and visit d/w nsg and DRIP MOLDER while on the unit. Abnl labs/Hypokalemia noted. Estimated Daily Nutrient Needs: Energy Requirements Based On: Kcal/kg Weight Used for Energy Requirements: [place] Weight for Energy Calculation (kg): 57 kg Total Energy Requirements (kcals/day): 7644-0810 (25-30 kcals/kg) Weight Used for Protein Requirements: [place] Weight in Kg Used for Protein Requirements: 57 kg Estimated Total Protein (g/day): 57-68 (1-1.2 g/kg) Estimated Daily Total Fluid (ml/day): 1 ml/kcal or per MD Nutrition Related Findings: Wound Type: None (ecchymosis) Isolation Status: No active isolations Food Allergies: NKFA Room Service: Selective Sachin Scale Score: 20 Peripheral Vascular (WDL): Within Defined Limits Abdomen Inspection: Soft, Distended; Abdominal Tenderness: Tenderness Bowel Sounds (All Quadrants): Active; Passing Flatus: Yes Last BM Date: (unsure) Gastrointestinal Symptoms: Nausea; Nausea Precipitating Factors: Other (Comment) (chronic) GI symptoms: Decreased appetite, Nausea, and Abdominal Painchronic N/V Nutrition History: Independent of feeding and Lives with SO at home Code Status, Oxygen Needs, Vital Signs, I/Os: Code Status: Full Code Oxygen Therapy SpO2: 100 % Oxygen Therapy: None (Room air) Vital Signs: Temp: 36.2 C (97.2 F); Heart Rate: 99; Resp: 18; BP: (!) 148/105; MAP (mmHg): 119 Net IO Since Admission: 1,808.32 mL [09/16/241724] Intake/Output Summary (Last 24 hours) at 09/16/2024 172 Last data filed at 09/16/2024 1209 Gross per 24 hour Intake 1808.32 ml Output -- Net 1808.32 ml Labs/Meds Reviewed: metoclopramide, 10 mg, IntraVENous, q6h pantoprazole (ProtoNix) 40 mg in sodium chloride (PF) 0.9 % 10 mL injection, 40 mg, IntraVENous, BID sodium chloride 0.9%, 10 mL, IntraVENous, 2 times per day sucralfate, 1 g, Oral, 4x daily AC & HS sodium chloride, 125 mL/hr, Last Rate: 125 mL/hr (09/16/24 1209) BMP: Recent Labs 09/15/24 1149 09/16/24 0649 NA 136 138 K 3.1* 3.1* CL 101 109* CO2 18* 19* BUN <3* <3* CREATININE 0.77 0.58 GLUCOSE 90 74 CALCIUM 9.7 8.3* MG 1.8 1.6 HEPATIC: Recent Labs 09/15/24 1149 09/16/24 0649 AST 29 18 ALT 33* 22 BILITOT 0.4 0.3 ALKPHOS 63 45 CBC: Recent Labs 09/15/24 1149 09/16/24 0649 WBC 7.0 6.2 HGB 13.3 10.9* HCT 40.7 34.5* MCV 78.6 81.9 PLT 337 249 Lab Results Component Value Date LACTATE 1.2 09/15/2024 LACTATE 1.1 10/03/2021 LACTATE 1.5 09/02/2021 Current Nutrition Therapies: Adult diet Full liquid Current Oral Intake Average Meal Intake: (FLD) Average Supplements Intake: None Ordered Anthropometric Measures: Height: 165.1 cm (5' 5) Current Body Weight: 91.2 kg (201 lb) Weight Source: Standing Scale Usual Body Weight: (per pt and SOx, UBW was 250-260# 3 MOs ago) [place] Body Weight (lbs) (Calculated): 125 lbs [place] Body Weight (Kg) (Calculated): 57 kg % [place] Body Weight (Calculated): 160.8 % BMI (kg/m2) (Calculated): 33.4 Weight Adjustment For: No Adjustment BMI (Calculated): 33.45 Weight: 91.2 kg (201 lb) Weight Method: Standing scale Nutrition Diagnosis: In context of chronic illness, Severe malnutrition related to pain, inadequate protein-energy intake, other (comment), psychological cause or life stress (multifactorial - chronic N/V, recurrent admissions for same; chronic pain since 2020 s/p hysterectomy, psych component as well (anxiety/depression/trauma hx), and active cannabis use) as evidenced by GI abnormality, nausea, vomiting, weight loss 7.5% in 3 months, Criteria as identified in malnutrition assessment, intake 0-25%, mild loss of subcutaneous fat, lab values (3 MO hx intractable N/V) Nutrition Interventions: Food and/or Nutrient Delivery: Continue Current Diet Nutrition Education/Counseling: Survival skills/brief education completed Coordination of Nutrition Care: Continue to monitor while inpatient Plan of Care discussed with: Patient, Nurse, Spouse/Significant Other, and DRIP MOLDER (Gamal Acosta) Goals: Goals: PO intake 50% or greater Nutrition Monitoring and Evaluation: Behavioral-Environmental Outcomes: Beliefs and Attitutes, Readiness for Change Food/Nutrient Intake Outcomes: Diet Advancement/Tolerance, Supplement Intake, Food and Nutrient Intake Physical Signs/Symptoms Outcomes: Weight, Biochemical Data, GI Status, Nausea or Vomiting, Nutrition Focused Physical Findings Discharge Planning: Too soon to determine Ghazala Howard MS, RD, LD Contact: or ipadio Chat (dial *[phone] from hospital phone) * Jocelynn Kamar Cardenas, TRAFFIC MANAGER - DRIP MOLDER - 09/16/2024 6:58 AM ESTAssociated Order(s): IP CONSULT TO GI Department of Internal Medicine Gastroenterology Attending Consult Note Reason for Consult: The patient was seen in consultation at the request of Meagan Lubin, NOMAN - RIVKA re: back to back admits for intractable nausea/vomiting, CT imaging negative- questionable gastroparesis/gastritis?. CHIEF COMPLAINT: intractable N/V History Obtained From: patient, EMR HISTORY OF PRESENT ILLNESS: The patient is a 24 y.o. female with significant past medical history of uterine Ca s/p hysterectomy (2020), gastroparesis, cyclic vomiting, marijuana use who presented to the ED for intractable nausea/vomiting. Patient c/o symptoms have been occurring for 3 months. Upon chart review patient has had extensive stay at [facility]. Reviewed ED provider note from 09/09/24 Peter ERWIN. Was admitted from July 29-September 05. Upper scopic cholecystectomy performed at [place] on 08-11, and then was transferred to [facility] on 08-14 for further GI consult. Had upperendoscopy performed which showed gastritis, but was otherwise unremarkable. Of note, patient did require psychiatry consult because she was witnessed taking her fingers down her throat to induce emesis. Patient was noted to be persistently tachycardic during her admission, but did have negative CTAstudy for PE. Patient discharged on 09-05 with plans to follow-up with GI provider, PCP, and psych. Patient has GI Dr. Friend at [place] following and told her he did not have anymore options for her. Endorses THC edible use but quit 2 months ago because her GI doctor told her this could be the cause but she still is having the pain and vomiting. Toxicology + for cannabinoids in urine 08/26/24. Current toxicology pending. Does not drink alcohol frequently, no nicotine use. Patient reports constant LUQ pain 05/17, only improved with dilaudid. States last episode of emesis was yesterday, no hematemesis. Episodes of emesis increase with food intake. Last BM 2 days ago, nonbloody and soft. No change in bowel or bladder function. Patient sitting up comfortably during exam. Last EGD: 07/2024 noting small HH, gastritis (bx neg for HP), normal duodenum. Last colonoscopy: none Allergies: Ceftriaxone, Promethazine, and Lactated ringers Current Medications: Current Facility-Administered Medications: acetaminophen (Tylenol) tablet 650 mg, 650 mg, Oral, q6h PRN OR acetaminophen (Tylenol) suppository 650 mg, 650 mg, Rectal, q6h PRN, Meagan Lubin TRAFFIC MANAGER - DRIP MOLDER ketorolac (Toradol) injection 15 mg, 15 mg, IntraVENous, q6h PRN, Meagan Lubin, TRAFFIC MANAGER - DRIP MOLDER, 15 mg at 09/16/24 0650 metoclopramide (Reglan) injection 10 mg, 10 mg, IntraVENous, q6h, Esau Acosta TRAFFIC MANAGER - DRIP MOLDER, 10 mg at 09/16/24 0948 morphine injection 4 mg, 4 mg, IntraVENous, q4h PRN, Meagan Lubin TRAFFIC MANAGER - DRIP MOLDER, 4 mg at 09/16/24 1013 naloxone (Narcan) injection 0.4 mg, 0.4 mg, IntraVENous, q5 min PRN, Esau Acosta TRAFFIC MANAGER - DRIP MOLDER ondansetron ODT (Zofran-ODT) disintegrating tablet 4 mg, 4 mg, Oral, q8h PRN OR ondansetron (Zofran) injection 4 mg, 4 mg, IntraVENous, q6h PRN, Meagan Lubin TRAFFIC MANAGER - DRIP MOLDER, 4 mg at 09/15/24 2335 pantoprazole (ProtoNix) 40 mg in sodium chloride (PF) 0.9 % 10 mL injection, 40 mg, IntraVENous, BID, Meagan Lubin TRAFFIC MANAGER - DRIP MOLDER, 40 mg at 09/16/24 0951 potassium chloride 40 mEq in NS 500 mL IVPB (premix), 40 mEq, IntraVENous, Once, Esau Acosta APRN - DRIP MOLDER, Last Rate: 125 mL/hr at 09/16/24 1015, 40 mEq at 09/16/24 1015 sodium chloride 0.9 % infusion, 5-250 mL/hr, IntraVENous, PRN, Meagan Lubin TRAFFIC MANAGER - DRIP MOLDER sodium chloride 0.9 % infusion, 125 mL/hr, IntraVENous, Continuous, Meagan Lubin APRN - DRIP MOLDER, Last Rate: 125 mL/hr at 09/16/24 0838, 125 mL/hr at 09/16/24 0838 sodium chloride 0.9% (NS) flush 10 mL, 10 mL, IntraVENous, 2 times per day, Meagan Lubin APRN -DRIP MOLDER, 10 mL at 09/15/24 2328 sodium chloride 0.9% (NS) flush 10 mL, 10 mL,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 Quality, Duration, Modifying Factors, Severity) Note limiting factors. I wore appropriate PPE for the entirety of this encounter. History provided by: Patient historic interpreter used: Thania Torres is a 24 y.o. female with past medical history for pancreatitis, chronic abdominal pain, intractable nausea and vomiting and gastroparesis presents to the emergency department for evaluation of nausea, vomiting and abdominal pain for the past 3 months. Patient states that she has followed up with GI in the past with no relief. She has another upcoming appointment with GI but it is at least a month away. Patient states that she has lost over 60 pounds as a result of nausea and vomiting. She denies fever, chills or diarrhea. Nursing Notes were reviewed. Limitations to history: None Outside historians: None REVIEW OF SYSTEMS Review of Systems Constitutional: Negative for chills and fever. Gastrointestinal: Positive for abdominal pain, nausea and vomiting. Negative for diarrhea. All other systems reviewed and are negative. Pertinent positives and negatives as per HPI. PAST MEDICAL HISTORY Past Medical History: Diagnosis Date Anxiety Cancer (CMS/HCC) s/p TIARRA 12/2020 with cervix removed and salpingectomy Depression Intraoperative ureteral injury Migraine PCOS (polycystic ovarian syndrome) SURGICAL HISTORY Past Surgical History: Procedure Laterality Date COLONOSCOPY 02/28/2021 CYSTOSCOPY 12/26/2020 C and P CYSTOSCOPY Left 07/28/2021 Cystoscopy, pyelograms, left antegrade nephrostogram, left nephrostomy tube removal, left ureteral stent exchange (6fr 26cm) DILATION AND CURETTAGE OF UTERUS 11/08/2020 HYSTEROSCOPY 11/08/2020 OTHER SURGICAL HISTORY Left 07/28/2021 Stent exchange OTHER SURGICAL HISTORY 09/09/2021 Robotic assisted laparoscopic left ureteroureterotomy, ureterotomy with insertion of antegrade stent SALPINGECTOMY Bilateral 12/18/2020 Dr. Escobedo TOTAL ABDOMINAL HYSTERECTOMY 12/18/[address] Escobedo URETERAL STENT PLACEMENT Left 02/12/2021 CURRENT MEDICATIONS Previous Medications METOCLOPRAMIDE (REGLAN) 10 MG TABLET Take 1 tablet (10 mg) by mouth every 6 hours for 7 days. SUCRALFATE (CARAFATE) 1 G TABLET Take 1 tablet (1 g) by mouth 3 times daily (before meals) for 7 days. ALLERGIES Ceftriaxone, Promethazine, and Lactated ringers FAMILY HISTORY Family History Problem Relation Name Age of Onset High Blood Pressure Mother Cancer Mother's Sister ovarian Diabetes Mother Breast cancer Mother's Sister Breast cancer Maternal Grandmother Colon cancer Mother's Sister SOCIAL HISTORY Social History Socioeconomic History Marital status: Single Tobacco Use Smoking status: Never Smokeless tobacco: Never Substance and Sexual Activity Alcohol use: Not Currently Drug use: Never Social Drivers of Health Food Insecurity: No Food Insecurity (08/22/2024) Received from [facility] Hunger Vital Sign Worried About Running Out of Food in the Last Year: Never true Ran Out of Food in the Last Year: Never true Transportation Needs: No Transportation Needs (08/22/2024) Received from [facility] PRAPARE - Transportation Lack of Transportation (Medical): No Lack of Transportation (Non-Medical): No Housing Stability: Unknown (08/22/2024) Received from [facility] Housing Stability Vital Sign Unable to Pay for Housing in the Last Year: No Homeless in the Last Year: No SCREENINGS PHYSICAL EXAM ED Triage Vitals [09/15/24 1029] Temp Heart Rate Resp BP 36.4 C (97.6 F) (!) 116 20 (!) 160/108 SpO2 Temp Source Heart Rate Source Patient Position 99 % Temporal Monitor -- BP Location FiO2 (%) -- -- Physical Exam Vitals and nursing note reviewed. Constitutional: General: She is not in acute distress. Cardiovascular: Rate and Rhythm: Regular rhythm. Tachycardia present. Pulmonary: Effort: Pulmonary effort is normal. Breath sounds: Normal breath sounds. Abdominal: General: Bowel sounds are normal. Palpations: Abdomen is soft. Tenderness: There is generalized abdominal tenderness. There is guarding. There is no right CVA tenderness or left CVA tenderness. Neurological: Mental Status: She is alert and oriented to person, place, and time. DIAGNOSTIC RESULTS RADIOLOGY (Per Emergency Physician): Interpretation per the Radiologist below, if available at the time of this note: CT abdomen pelvis w contrast Final Result 1. No acute process. Report Dictated on Electronically Signed By: Aletha White MD Electronically Signed Date/Time: 09/15/2024 1:05 PM EST LABS: Labs Reviewed CBC WITH AUTO DIFFERENTIAL - Abnormal Result Value Auto WBC 7.0 RBC 5.18 Hemoglobin 13.3 Hematocrit 40.7 MCV 78.6 MCH 25.7 (*) MCHC 32.7 RDW 15.9 (*) Platelets 337 MPV 9.8 nRBC 0.0 Neutrophils Relative 77.3 Lymphocytes Relative 13.2 (*) Monocytes Relative 8.5 Eosinophils Relative 0.4 Basophils Relative 0.3 Immature Grans % 0.3 Neutrophils Absolute 5.4 Lymphocytes Absolute 0.9 (*) Monocytes Absolute 0.6 Eosinophils Absolute 0.0 Basophils Absolute 0.0 Immature Grans Absolute 0.0 COMPREHENSIVE METABOLIC PANEL - Abnormal SODIUM 136 POTASSIUM 3.1 (*) CHLORIDE 101 CARBON DIOXIDE 18 (*) ANION GAP 17 (*) UREA NITROGEN <3 (*) CREATININE 0.77 GLUCOSE 90 CALCIUM 9.7 AST (SGOT) 29 ALT 33 (*) ALKALINE PHOSPHATASE 63 ALBUMIN 4.2 BILIRUBIN, TOTAL 0.4 TOTAL PROTEIN 8.1 eGFR >90.0 LIPASE - Abnormal LIPASE 58 (*) COMPLETE URINALYSIS - Abnormal Color, Urine Light Yellow Clarity, Urine Cloudy (*) pH, Urine 6.0 Leukocytes, Urine Negative Nitrite, Urine Negative Protein, Urine 100 (*) Glucose, Urine Normal Bilirubin, Urine Negative Ketones, Urine >150 (*) Urobilinogen, Urine 2 (*) Blood, Urine Negative RBC, Urine 0-2 WBC, Urine 0-2 Squamous Epithelial, Urine 11-25 (*) Bacteria, Urine Few (*) Mucus, Urine Few Hyaline Casts, Urine 3-5 (*) SPECIFIC GRAVITY OF URINE (NUMERIC) 1.025 MAGNESIUM - Normal MAGNESIUM 1.8 Narrative: Higher values can be expected in females during menses. LACTIC ACID WITH REFLEX - Normal LACTIC ACID 1.2 COMPLETE URINALYSIS WITH REFLEX TO CULTURE Narrative: The following orders were created for panel order Urinalysis Complete with reflex to Culture. Procedure Abnormality Status --------- ------ Complete Urinalysis[[id number]] Abnormal Final result Please view results for these tests on the individual orders. All other labs were within normal range or not returned as of this dictation. EMERGENCY DEPARTMENT COURSE and DIFFERENTIAL DIAGNOSIS/MDM: Vitals: Vitals: 09/15/24 1029 09/15/24 1306 BP: (!) 160/108 (!) 136/93 Pulse: (!) 116 101 Resp: 20 16 Temp: 36.4 C (97.6 F) 36.7 C (98 F) TempSrc: Temporal Temporal SpO2: 99% 100% Medications potassium chloride 40 mEq in NS 500 mL IVPB (premix) (40 mEq IntraVENous New Bag 09/15/24 1341) sodium chloride 0.9% (NS) flush 10 mL (has no administration in time range) sodium chloride 0.9% (NS) flush 10 mL (has no administration in time range) sodium chloride 0.9 % infusion (has no administration in time range) acetaminophen (Tylenol) tablet 650 mg (has no administration in time range) Or acetaminophen (Tylenol) suppository 650 mg (has no administration in time range) ondansetron ODT (Zofran-ODT) disintegrating tablet 4 mg (has no administration in time range) Or ondansetron (Zofran) injection 4 mg (has no administration in time range) sodium chloride 0.9 % infusion (has no administration in time range) droperidol (Inapsine) injection 1.25 mg (has no administration in time range) sucralfate (Carafate) tablet 1 g (has no administration in time range) ketorolac (Toradol) injection 15 mg (has no administration in time range) morphine injection 4 mg (has no administration in time range) pantoprazole (ProtoNix) 40 mg in sodium chloride (PF) 0.9 % 10 mL injection (has no administration in time range) sodium chloride 0.9 % bolus 1,000 mL (0 mL IntraVENous Stopped 09/15/24 1310) HYDROmorphone (Dilaudid) injection 1 mg (1 mg IntraVENous Given 09/15/24 1209) ondansetron (Zofran) injection 4 mg (4 mg IntraVENous Given 09/15/24 1209) iopamidol (Isovue-370) 76 % injection 75 mL (75 mL IntraVENous Given 09/15/24 1254) metoclopramide (Reglan) injection 10 mg (10 mg IntraVENous Given 09/15/24 1603) HYDROmorphone (Dilaudid) injection 1 mg (1 mg IntraVENous Given 09/15/24 1603) 24-year-old female present to the ED for evaluation of nausea, vomiting and abdominal pain. On exam, patient is noted to be uncomfortable in pain. She is afebrile. There is generalized abdominal tenderness. Differentials include but not limited to gastritis, gastroparesis, gastroenteritis, IBS, pancreatitis, dehydration, electrolyte imbalance. Workup included CBC, CMP, lipase, magnesium level, lactic acid, urinalysis, CT abdomen/pelvis. Medications included Dilaudid, Zofran, Reglan and fluid bolus. Workup results revealed the following: CBC is negative for leukocytosis. CMP revealed normal sodium, potassium 3.1, blood glucose 90, BUN/creatinine 3/0.77. Slightly elevated ALT at 33. Lipase 58. Magnesium 1.8. Lactic acid 1.2. Urinalysis is negative for UTI. CT abdomen/pelvis interpreted by me and confirmed by radiologist reveals no acute process. Patient continued to experience nausea, vomiting and abdominal pain despite medication. She was informed of plans to admit her to the hospital. I discussed the patient's case with admitting team, and the patient was admitted to CDU. MDM elements: Patient is in agreement with this plan. PROCEDURES: Unless otherwise noted below, none Procedures CRITICAL CARE TIME None FINAL IMPRESSION 1. Intractable abdominal pain 2. Intractable nausea and vomiting DISPOSITION Observation 09/15/2024 04:16:35 PM PATIENT REFERRED TO: No follow-up provider specified. DISCHARGE MEDICATIONS: New Prescriptions No medications on file (Comment: Please note this report has been produced using speech recognition software and may contain errors related to that system including errors in grammar, punctuation, and spelling, as well as words and phrases that may be inappropriate. If there are any questions or concerns please feel freeto contact the dictating provider for clarification.) NOMAN Saldivar CNP (electronically signed) Emergency Medicine Provider NOMAN Crandall CNP 09/15/24 1635 Cosigned by Esteban Dinh MD at 09/15/2024 8:34 PM EST [id number] Emergency department Note* Esteban Dinh MD - 09/15/2024 10:19 AM EST Emergency Department Encounter [facility] EMERGENCY DEPT Patient: Addis Torres : 2000 Date of Evaluation: 09/15/2024 ED Supervising Physician: Esteban Dinh MD I personally evaluated Addis Torres and made/approved the management plan and take responsibility for the patient management. This will serve as my Supervisory note and shared attestation. I did perform a substantive portion of the visit including all aspects of the Medical Decision Making. I wore appropriate PPE for the entirety of this encounter. In brief, Addis Torres is a 24 y.o. that presents to the emergency department with intractable nausea and vomiting and abdominal pain, she has been worked up for this before and told it was gastroparesis, she said another doctor told her it was cyclical vomiting syndrome. Patient denies marijuana use Focused exam: Awake alert and oriented heart mildly tachycardic Brief ED course/MDM: Patient was given multiple medications including Zofran, Dilaudid, Reglan and IV fluids patient is still having intractable nausea and vomiting, labs show some mild hypokalemia otherwise unremarkable CT is unremarkable, patient will be admitted observation for symptomatic control Diagnostics interpreted by me: CT scan(s) interpreted by me shows no acute abnormality I personally discussed the patient's management with other clinicians: Admitting team All diagnostic, treatment, and disposition decisions were made by myself in conjunction with the [facility]. For all further details of the patient's emergency department visit, please see their documentation. (Comment: Please note this report has been produced using speech recognition software and may contain errors related to that system including errors in grammar, punctuation, and spelling, as well as words and phrases that may be inappropriate. If there are any questions or concerns please feel freeto contact the dictating provider for clarification.) Esteban Dinh MD Acute Care [place] Esteban Dinh MD 09/15/24 1605 [facility] [employer] Phone: [phone] 398-519501-02-2025 Hospital Discharge instructions Patient Education 09/08/2024 16:37:09 Abdominal Pain Abdominal Pain Abdominal pain is pain in the stomach or belly area. Everyone has this pain from time to time. In many cases it goes away on its own. But abdominal pain can sometimes be due to a serious problem, such as appendicitis. So it s important to know when to get help. Causes of abdominal pain There are many possible causes of abdominal pain. Common causes in adults include: Constipation, diarrhea, or gas Stomach acid flowing back up into the esophagus (acid reflux or heartburn) Severe acid reflux, called GERD (gastroesophageal reflux disease) A sore in the lining of the stomach or small intestine (peptic ulcer) Inflammation of the gallbladder, liver, or pancreas Gallstones or kidney stones Appendicitis Intestinal blockage An internal organ pushing through a muscle or other tissue (hernia) Urinary tract infections In women, menstrual cramps, fibroids, ovarian cysts, pelvic inflammatory disease, or endometriosis Inflammation or infection of the intestines, including Crohn's disease and ulcerative colitis Irritable bowel syndrome Diagnosing the cause of abdominal pain Your healthcare provider will give you a physical exam help find the cause of your pain. If needed,you will have tests. Belly pain has many possible causes. So it can be hard to find the reason for your pain. Giving details about your pain can help. Tell your provider where and when you feel the pain, and what makes it better or worse. Also let your provider know if you have other symptoms such as: Fever Tiredness Upset stomach (nausea) Vomiting Changes in bathroom habits Blood in the stool or black, tarry stool Weight loss that you can't explain (involuntary weight loss?) Also report any family history of stomach or intestinal problems, or cancers. Tell your provider about all your alcohol use and drug use. Tell your provider about all medicines you use, including herbs, vitamins, and supplements. Treating abdominal pain Some causes of pain need emergency medical treatment right away. These include appendicitis or a bowel blockage. Other problems can be treated with rest, fluids, or medicines. Your healthcare provider can give you specific instructions for treatment or self-care based on what is causing your pain. If you have vomiting or diarrhea, sip water or other clear fluids. When you are ready to eat solid foods again, start with small amounts of rkxk-ij-hraioe, low- fat foods. These include apple sauce, toast, or crackers. When to get medical care Call 911 or go to the hospital right away if you: Can t pass stool and are vomiting Are vomiting blood or have bloody diarrhea or black, tarry diarrhea Have chest, neck, or shoulder pain Feel like you might pass out Have pain in your shoulder blades with nausea Have sudden, severe belly pain Have new, severe pain unlike any you have felt before Have a belly that is rigid, hard, and hurts to touch Call your healthcare provider if you have: Pain for more than 5 days Bloating for more than 2 days Diarrhea for more than 5 days A fever of 100.4 F (38 C) or higher, or as directed by your healthcare provider Pain that gets worse Weight loss for no reason Continued lack of appetite Blood in your stool How to prevent abdominal pain Here are some tips to help prevent abdominal pain: Eat smaller amounts of food at each meal. Don't eat greasy, fried, or other high-fat foods. Don't eat foods that give you gas. Exercise regularly. Drink plenty of fluids. To help prevent GERD symptoms: Quit smoking. Reduce alcohol and foods that increase stomach acid. Don't use aspirin or efrm-kvn-mabnbpr pain and fever medicines, if possible. This includes nonsteroidal anti-inflammatory drugs (NSAIDs). Lose excess weight. Finish eating at least 2 hours before you go to bed or lie down. Raise the head of your bed. 9645-3457 [employer]. [address] [place] [address]. All rights reserved. This information is not intended as a substitute for professional medical care. Always follow yourhealthcare professional's instructions. Follow Up Care 09/08/2024 12:46:10 With:Gastroenterology as provided yesterday Address: When: Unknown [facility] 01-02-2025 Note Discharge Instructions Thank you for allowing [facility] to assist you with your healthcare needs. The following is importantdischarge information regarding your hospital visit. Diagnosis from Today's Visit Abdominal pain What to Do Next Instructions from Your Care Team No qualifying data available. Post Acute Orders No qualifying data available. You Need to Schedule the Following Appointments Follow Up with Gastroenterology as provided yesterday Allergies Lactated Ringers hives Phenergan vomiting Rocephin itching Medications Please ask your primary doctor or pharmacist before taking any other medication not listed, including over the counter drugs, herbal medications, vitamins and or supplements as they may interact withyour home medications. What How Much When Why Instructions Last Dose New acetaminophen-hydrocodone (Connell 325- 5 mg oral tablet) 1 tab(s) by mouth Four (4) times a day as needed for as needed for pain Abdominal pain Duration: 3 Days Printed Prescription New diclofenac topical (diclofenac 1% topical gel) 1 application Topical Four (4) times a day Printed Prescription New metoclopramide (Reglan 10 mg oral tablet) 1 tab(s) by mouth Four (4) times a day Duration: 7 Days Printed Prescription Unchanged dicyclomine (dicyclomine 20 mg oral tablet) 1 tab(s) by mouth Four (4) times a day as needed for As needed for abdominal discomfort Duration: 3 Days Unchanged ondansetron (ondansetron 4 mg oral tablet, disintegrating) 1 tab(s) by mouth Every 6 hours as needed for Nausea/Vomiting Unchanged ondansetron (Zofran ODT use ondansetron oral tablet, disintegrating ) 4 Milligram by mouth Every 8 hours Abdominal pain Duration: 7 Days Unchanged pantoprazole (pantoprazole 40 mg oral enteric coated tablet) 1 tab(s) by mouth Once a day Unchanged tamsulosin (tamsulosin 0.4 mg oral capsule) 1 cap by mouth Once a day Please take this list to your next doctor s visit. Bring all medications you take, including over the counter medications, herbals and other supplements with you to your doctor s visit. Patients and families are reminded to discard old lists and to update any records with all medication providers or retail pharmacies. Education Materials Abdominal Pain Abdominal pain is pain in the stomach or belly area. Everyone has this pain from time to time. In many cases it goes away on its own. But abdominal pain can sometimes be due to a serious problem, such as appendicitis. So it s important to know when to get help. Causes of abdominal pain There are many possible causes of abdominal pain. Common causes in adults include: Constipation, diarrhea, or gas Stomach acid flowing back up into the esophagus (acid reflux or heartburn) Severe acid reflux, called GERD (gastroesophageal reflux disease) A sore in the lining of the stomach or small intestine (peptic ulcer) Inflammation of the gallbladder, liver, or pancreas Gallstones or kidney stones Appendicitis Intestinal blockage An internal organ pushing through a muscle or other tissue (hernia) Urinary tract infections In women, menstrual cramps, fibroids, ovarian cysts, pelvic inflammatory disease, or endometriosis Inflammation or infection of the intestines, including Crohn's disease and ulcerative colitis Irritable bowel syndrome Diagnosing the cause of abdominal pain Your healthcare provider will give you a physical exam help find the cause of your pain. If needed,you will have tests. Belly pain has many possible causes. So it can be hard to find the reason for your pain. Giving details about your pain can help. Tell your provider where and when you feel the pain, and what makes it better or worse. Also let your provider know if you have other symptoms such as: Fever Tiredness Upset stomach (nausea) Vomiting Changes in bathroom habits Blood in the stool or black, tarry stool Weight loss that you can't explain (involuntary weight loss?) Also report any family history of stomach or intestinal problems, or cancers. Tell your provider about all your alcohol use and drug use. Tell your provider about all medicines you use, including herbs, vitamins, and supplements. Treating abdominal pain Some causes of pain need emergency medical treatment right away. These include appendicitis or a bowel blockage. Other problems can be treated with rest, fluids, or medicines. Your healthcare provider can give you specific instructions for treatment or self-care based on what is causing your pain. If you have vomiting or diarrhea, sip water or other clear fluids. When you are ready to eat solid foods again, start with small amounts of odnr-ws-igmmkj, low- fat foods. These include apple sauce, toast, or crackers. When to get medical care Call 911 or go to the hospital right away if you: Can t pass stool and are vomiting Are vomiting blood or have bloody diarrhea or black, tarry diarrhea Have chest, neck, or shoulder pain Feel like you might pass out Have pain in your shoulder blades with nausea Have sudden, severe belly pain Have new, severe pain unlike any you have felt before Have a belly that is rigid, hard, and hurts to touch Call your healthcare provider if you have: Pain for more than 5 days Bloating for more than 2 days Diarrhea for more than 5 days A fever of 100.4 F (38 C) or higher, or as directed by your healthcare provider Pain that gets worse Weight loss for no reason Continued lack of appetite Blood in your stool How to prevent abdominal pain Here are some tips to help prevent abdominal pain: Eat smaller amounts of food at each meal. Don't eat greasy, fried, or other high-fat foods. Don't eat foods that give you gas. Exercise regularly. Drink plenty of fluids. To help prevent GERD symptoms: Quit smoking. Reduce alcohol and foods that increase stomach acid. Don't use aspirin or nnxi-zmo-ifjlroh pain and fever medicines, if possible. This includes nonsteroidal anti-inflammatory drugs (NSAIDs). Lose excess weight. Finish eating at least 2 hours before you go to bed or lie down. Raise the head of your bed. [id number] [employer]. [address] [place] [address], [place] [address]. All rights reserved. This information is not intended as a substitute for professional medical care. Always follow yourhealthcare professional's instructions. Additional Information VACCINATE! IT SAVES LIVES! Members of the community who have not yet received the COVID-19 vaccine and would like to receive it can visit one of [facility] vaccine clinics. There are many vaccine clinic locations within the [facility]. For locations and available times, please visit [email or web address].[email or web address]/. It is important to note that some COVID mobile vaccine clinics are held outdoors and may be canceled in rainy or stormy conditions. To learn more about pediatric vaccinations (ages 5-11), we invite you to visit the [facility] webpage. [email or web address]/[email or web address] [email or web address] learn more about the COVID-19 vaccine, we invite you to visit the CDC website for a list of frequently asked questions. https://www.cdc.gov/coronavirus/2019-ncov/vaccines/faq.html [employer] Patient Portal Access Instructions: Stay connected with your healthcare team and access your personal medical information anytime with the [employer] Patient Portal. If you would like a full copy of your medical records please contact the [facility] Medical Records Department Thursday through Thursday between 8a.m. and 4:30p.m. Please follow the directions below to access the portal: 1.Access the email account you provided upon registration to the hospital.2.Look for an invitation email from [facility].3.Open the email and access the invitation link: Accept Invitation to [employer]4.Fill in the required goel to create your account. Sign into [email or web address] with your username and password that you created in the above steps to stay up to date. You can then view a summary of results, a summary of your visits, and the ability to download your summaries to your computer or send the information securely to a physician. Remember that your healthcare information is confidential, so carefully consider who you will allow to register on the [employer] Patient Portal for access to your information. You can also access the [employer] Patient Portal on the [employer] jairo. Simply click on Health Records under [employer] and then click on the [employer] logo. HOW TO SAFELY DISPOSE OF PRESCRIPTION MEDICATIONS Please use one of the following methods to safely dispose of your unused medications. 1.Use a drug disposal kit: the drug disposal pouch allows you to safely discard your old and unuseddrugs. Ask your nurse to give you one when you are discharged.2.Visit a local take-back location: Many local pharmacies and police departments have programs that collect old and unwanted prescriptiondrugs. Call your local pharmacy or go to [email or web address] [employer] [facility] [email or web address] to find one close to you.3.Make use of household items: Use cat litter or old coffee grounds to dispose medications if other options arenot available. Mix your drugs with these household products, seal them in an airtight container andthrow it into the garbage. Call [facility]: [phone] to be sure your drugs can be disposed of in this way. Some medicines may require a different approach.4.Never flush your medications down the toilet. IF YOU HAVE BEEN PRESCRIBED AN OPIOIDS FOR PAIN If you have been prescribed an opioid (such as hydrocodone, oxycodone or morphine), it is critical to understand the possible side effects and risks of opioid pain medications. Even when taken as directed, opioids can have several side effects including: Tolerance, meaning you might need to take more of a medication for the same pain relief. Nausea, vomiting and/or constipation. Sleepiness, dizziness, dry mouth, confusion, depression or itching. Physical dependence, meaning you have withdrawal symptoms when a medication is stopped ? this can develop within a few days. KNOW YOUR RESPONSIBILITIES It is important to know exactly how much and how often to take the opioid pain medications you are prescribed. Never take opioids in higher amounts or more often than prescribed. Do not combine opioids with alcohol or other drugs that cause drowsiness, such as benzodiazepines, also known as benzos,including diazepam and alprazolam, muscle relaxants or sleep aids. Never sell or share prescriptionopioids. This is illegal. Store opioids in a secure place and out of reach of others (including children, family, friends and visitors). The last page(s) of this document has been signed and retained as a CHART COPY Signatures Patient Education Materials Abdominal Pain Medication Leaflets My discharge plan and instructions have been reviewed and explained to me and I,ADDIS TORRES understand my current condition and have read and understand these discharge instructions. I have received a written copy of the plan/instructions. If I have questions, I am aware that I should contact my doctor. Patient/Watch Supervisor Signature: Date/Time: Relationship to Patient: Witness Name/Signature: Date/Time: [facility]01-01-2025 Emergency department Discharge summary Discharge Instructions Thank you for allowing [facility] to assist you with your healthcare needs. The following is importantdischarge information regarding your hospital visit. Diagnosis from Today's Visit Abdominal pain Abdominal pain in female Hypokalemia Nausea & vomiting What to Do Next Instructions from Your Care Team No qualifying data available. Post Acute Orders No qualifying data available. You Need to Schedule the Following Appointments Follow Up with DORENE GARRETT MD When:Within 2-4 days Where:[address] [facility] [place] [address] [phone] Follow Up with Go to emergency room if symptoms worsen When:Within 2-4 days Follow Up with [facility] When:Within 2-4 days Where:[facility] [place] [address]- [phone] Additional Information: Return to ED if symptoms worsen. Follow-up with Primary Care Physician in 1-2 days. Allergies Lactated Ringers hives Phenergan vomiting Rocephin itching Medications Please ask your primary doctor or pharmacist before taking any other medication not listed, including over the counter drugs, herbal medications, vitamins and or supplements as they may interact withyour home medications. What How Much When Why Instructions Last Dose Changed ondansetron (ondansetron 4 mg oral tablet, disintegrating) 1 tab(s) by mouth Every 6 hours as needed for Nausea/Vomiting Printed Prescription Changed ondansetron (Zofran ODT use ondansetron oral tablet, disintegrating ) 4 Milligram by mouth Every 8 hours Abdominal pain Duration: 7 Days Unchanged dicyclomine (dicyclomine 20 mg oral tablet) 1 tab(s) by mouth Four (4) times a day as needed for As needed for abdominal discomfort Duration: 3 Days Unchanged pantoprazole (pantoprazole 40 mg oral enteric coated tablet) 1 tab(s) by mouth Once a day Unchanged tamsulosin (tamsulosin 0.4 mg oral capsule) 1 cap by mouth Once a day Please take this list to your next doctor s visit. Bring all medications you take, including over the counter medications, herbals and other supplements with you to your doctor s visit. Patients and families are reminded to discard old lists and to update any records with all medication providers or retail pharmacies. Education Materials Abdominal Pain Abdominal pain is pain in the stomach or belly area. Everyone has this pain from time to time. In many cases it goes away on its own. But abdominal pain can sometimes be due to a serious problem, such as appendicitis. So it s important to know when to get help. Causes of abdominal pain There are many possible causes of abdominal pain. Common causes in adults include: Constipation, diarrhea, or gas Stomach acid flowing back up into the esophagus (acid reflux or heartburn) Severe acid reflux, called GERD (gastroesophageal reflux disease) A sore in the lining of the stomach or small intestine (peptic ulcer) Inflammation of the gallbladder, liver, or pancreas Gallstones or kidney stones Appendicitis Intestinal blockage An internal organ pushing through a muscle or other tissue (hernia) Urinary tract infections In women, menstrual cramps, fibroids, ovarian cysts, pelvic inflammatory disease, or endometriosis Inflammation or infection of the intestines, including Crohn's disease and ulcerative colitis Irritable bowel syndrome Diagnosing the cause of abdominal pain Your healthcare provider will give you a physical exam help find the cause of your pain. If needed,you will have tests. Belly pain has many possible causes. So it can be hard to find the reason for your pain. Giving details about your pain can help. Tell your provider where and when you feel the pain, and what makes it better or worse. Also let your provider know if you have other symptoms such as: Fever Tiredness Upset stomach (nausea) Vomiting Changes in bathroom habits Blood in the stool or black, tarry stool Weight loss that you can't explain (involuntary weight loss?) Also report any family history of stomach or intestinal problems, or cancers. Tell your provider about all your alcohol use and drug use. Tell your provider about all medicines you use, including herbs, vitamins, and supplements. Treating abdominal pain Some causes of pain need emergency medical treatment right away. These include appendicitis or a bowel blockage. Other problems can be treated with rest, fluids, or medicines. Your healthcare provider can give you specific instructions for treatment or self-care based on what is causing your pain. If you have vomiting or diarrhea, sip water or other clear fluids. When you are ready to eat solid foods again, start with small amounts of joeg-ys-dshxbr, low- fat foods. These include apple sauce, toast, or crackers. When to get medical care Call 911 or go to the hospital right away if you: Can t pass stool and are vomiting Are vomiting blood or have bloody diarrhea or black, tarry diarrhea Have chest, neck, or shoulder pain Feel like you might pass out Have pain in your shoulder blades with nausea Have sudden, severe belly pain Have new, severe pain unlike any you have felt before Have a belly that is rigid, hard, and hurts to touch Call your healthcare provider if you have: Pain for more than 5 days Bloating for more than 2 days Diarrhea for more than 5 days A fever of 100.4 F (38 C) or higher, or as directed by your healthcare provider Pain that gets worse Weight loss for no reason Continued lack of appetite Blood in your stool How to prevent abdominal pain Here are some tips to help prevent abdominal pain: Eat smaller amounts of food at each meal. Don't eat greasy, fried, or other high-fat foods. Don't eat foods that give you gas. Exercise regularly. Drink plenty of fluids. To help prevent GERD symptoms: Quit smoking. Reduce alcohol and foods that increase stomach acid. Don't use aspirin or kypc-ifw-tdbjdfi pain and fever medicines, if possible. This includes nonsteroidal anti-inflammatory drugs (NSAIDs). Lose excess weight. Finish eating at least 2 hours before you go to bed or lie down. Raise the head of your bed. 7028-8492 [employer]. [address] [place] [address], [place] [address]. All rights reserved. This information is not intended as a substitute for professional medical care. Always follow yourhealthcare professional's instructions. Additional Information VACCINATE! IT SAVES LIVES! Members of the community who have not yet received the COVID-19 vaccine and would like to receive it can visit one of [facility] vaccine clinics. There are many vaccine clinic locations within the [facility]. For locations and available times, please visit www.gettheshot.coronavirus.[place].gov/. It is important to note that some COVID mobile vaccine clinics are held outdoors and may be canceled in rainy or stormy conditions. To learn more about pediatric vaccinations (ages 5-11), we invite you to visit the [facility] webpage. https://www.[employer].org/pages/1801-Inqsi-Nbjekldhbwd-Xijzzhtupn-Iadbn-Mak stions.htmlTo learn more about the COVID-19 vaccine, we invite you to visit the CDC website for a list of frequently asked questions. https://www.cdc.gov/coronavirus/2019-ncov/vaccines/faq.html [employer] Patient Portal Access Instructions: Stay connected with your healthcare team and access your personal medical information anytime with the [employer] Patient Portal. If you would like a full copy of your medical records please contact the [facility] Medical Records Department Thursday through Thursday between 8a.m. and 4:30p.m. Please follow the directions below to access the portal: 1.Access the email account you provided upon registration to the hospital.2.Look for an invitation email from [facility].3.Open the email and access the invitation link: Accept Invitation to [employer]4.Fill in the required goel to create your account. Sign into [email or web address] with your username and password that you created in the above steps to stay up to date. You can then view a summary of results, a summary of your visits, and the ability to download your summaries to your computer or send the information securely to a physician. Remember that your healthcare information is confidential, so carefully consider who you will allow to register on the [employer] Patient Portal for access to your information. You can also access the [employer] Patient Portal on the [employer] jairo. Simply click on Health Records under [employer] and then click on the [employer] logo. HOW TO SAFELY DISPOSE OF PRESCRIPTION MEDICATIONS Please use one of the following methods to safely dispose of your unused medications. 1.Use a drug disposal kit: the drug disposal pouch allows you to safely discard your old and unuseddrugs. Ask your nurse to give you one when you are discharged.2.Visit a local take-back location: Many local pharmacies and police departments have programs that collect old and unwanted prescriptiondrugs. Call your local pharmacy or go to http://[employer].[facility] [employer] [facility] [employer]/4H5Gg0a to find one close to you.3.Make use of household items: Use cat litter or old coffee grounds to dispose medications if other options arenot available. Mix your drugs with these household products, seal them in an airtight container andthrow it into the garbage. Call [facility]: [phone] to be sure your drugs can be disposed of in this way. Some medicines may require a different approach.4.Never flush your medications down the toilet. IF YOU HAVE BEEN PRESCRIBED AN OPIOIDS FOR PAIN If you have been prescribed an opioid (such as hydrocodone, oxycodone or morphine), it is critical to understand the possible side effects and risks of opioid pain medications. Even when taken as directed, opioids can have several side effects including: Tolerance, meaning you might need to take more of a medication for the same pain relief. Nausea, vomiting and/or constipation. Sleepiness, dizziness, dry mouth, confusion, depression or itching. Physical dependence, meaning you have withdrawal symptoms when a medication is stopped ? this can develop within a few days. KNOW YOUR RESPONSIBILITIES It is important to know exactly how much and how often to take the opioid pain medications you are prescribed. Never take opioids in higher amounts or more often than prescribed. Do not combine opioids with alcohol or other drugs that cause drowsiness, such as benzodiazepines, also known as benzos,including diazepam and alprazolam, muscle relaxants or sleep aids. Never sell or share prescriptionopioids. This is illegal. Store opioids in a secure place and out of reach of others (including children, family, friends and visitors). The last page(s) of this document has been signed and retained as a CHART COPY Signatures Patient Education Materials Abdominal Pain Medication Leaflets My discharge plan and instructions have been reviewed and explained to me and I,ADDIS TORRES understand my current condition and have read and understand these discharge instructions. I have received a written copy of the plan/instructions. If I have questions, I am aware that I should contact my doctor. Patient/Watch Supervisor Signature: Date/Time: Relationship to Patient: Witness Name/Signature: [id number] Discharge instructions Patient Education 09/07/2024 18:32:28 Abdominal Pain Abdominal Pain Abdominal pain is pain in the stomach or belly area. Everyone has this pain from time to time. In many cases it goes away on its own. But abdominal pain can sometimes be due to a serious problem, such as appendicitis. So it s important to know when to get help. Causes of abdominal pain There are many possible causes of abdominal pain. Common causes in adults include: Constipation, diarrhea, or gas Stomach acid flowing back up into the esophagus (acid reflux or heartburn) Severe acid reflux, called GERD (gastroesophageal reflux disease) A sore in the lining of the stomach or small intestine (peptic ulcer) Inflammation of the gallbladder, liver, or pancreas Gallstones or kidney stones Appendicitis Intestinal blockage An internal organ pushing through a muscle or other tissue (hernia) Urinary tract infections In women, menstrual cramps, fibroids, ovarian cysts, pelvic inflammatory disease, or endometriosis Inflammation or infection of the intestines, including Crohn's disease and ulcerative colitis Irritable bowel syndrome Diagnosing the cause of abdominal pain Your healthcare provider will give you a physical exam help find the cause of your pain. If needed,you will have tests. Belly pain has many possible causes. So it can be hard to find the reason for your pain. Giving details about your pain can help. Tell your provider where and when you feel the pain, and what makes it better or worse. Also let your provider know if you have other symptoms such as: Fever Tiredness Upset stomach (nausea) Vomiting Changes in bathroom habits Blood in the stool or black, tarry stool Weight loss that you can't explain (involuntary weight loss?) Also report any family history of stomach or intestinal problems, or cancers. Tell your provider about all your alcohol use and drug use. Tell your provider about all medicines you use, including herbs, vitamins, and supplements. Treating abdominal pain Some causes of pain need emergency medical treatment right away. These include appendicitis or a bowel blockage. Other problems can be treated with rest, fluids, or medicines. Your healthcare provider can give you specific instructions for treatment or self-care based on what is causing your pain. If you have vomiting or diarrhea, sip water or other clear fluids. When you are ready to eat solid foods again, start with small amounts of undn-ww-yhzcbo, low- fat foods. These include apple sauce, toast, or crackers. When to get medical care Call 911 or go to the hospital right away if you: Can t pass stool and are vomiting Are vomiting blood or have bloody diarrhea or black, tarry diarrhea Have chest, neck, or shoulder pain Feel like you might pass out Have pain in your shoulder blades with nausea Have sudden, severe belly pain Have new, severe pain unlike any you have felt before Have a belly that is rigid, hard, and hurts to touch Call your healthcare provider if you have: Pain for more than 5 days Bloating for more than 2 days Diarrhea for more than 5 days A fever of 100.4 F (38 C) or higher, or as directed by your healthcare provider Pain that gets worse Weight loss for no reason Continued lack of appetite Blood in your stool How to prevent abdominal pain Here are some tips to help prevent abdominal pain: Eat smaller amounts of food at each meal. Don't eat greasy, fried, or other high-fat foods. Don't eat foods that give you gas. Exercise regularly. Drink plenty of fluids. To help prevent GERD symptoms: Quit smoking. Reduce alcohol and foods that increase stomach acid. Don't use aspirin or bvwp-jdw-lbkijwj pain and fever medicines, if possible. This includes nonsteroidal anti-inflammatory drugs (NSAIDs). Lose excess weight. Finish eating at least 2 hours before you go to bed or lie down. Raise the head of your bed. 2490-[address] [employer] [place] [address]. All rights reserved. This information is not intended as a substitute for professional medical care. Always follow yourhealthcare professional's instructions. Follow Up Care 09/07/2024 12:17:30 With:DORENE GARRETT MD Address: [address] [place] [address] [facility] [place] [address]- [phone] When:2-4 days With:Go to emergency room if symptoms worsen Address:Unknown When:2-4 days With:[facility] Address: [address] [place] [phone] When:2-4 days Comments:Return to ED if symptoms worsen. Follow-up with Primary Care Physician in 1-2 days. [facility] 01-01-2025 Note* Exam Date Time Procedure Performing Provider Status 09/07/24 6:02 PM US Pelvis Non-OB Complete JOSH AGUIAR MD; Auth (Verified) [id number] ORIGINAL EXAMINATION: PELVIC ULTRASOUND 09/07/2024 TECHNIQUE: Transabdominal pelvic ultrasound was performed. COMPARISON: CT abdomen-pelvis 09/07/2024, 07/26/2024 HISTORY: ORDERING SYSTEM PROVIDED HISTORY: Reason for Exam: pain; suspect ovarian torsion or tubo-ovarian abscess FINDINGS: Measurements: Uterus: Prior hysterectomy noted. Endometrial stripe: Not measured. Right Ovary:Measures 3.1 x 2.8 x 3.7 cm. Right ovarian volume is 17 cc. Left Ovary: Measures 3.2 x 2.2 x 3.2 cm. Left ovarian volume is 12 cc. Ultrasound Findings: Uterus: Prior hysterectomy noted. There is no gross mass or fluid collection at uterine fossa. Right Ovary: Right ovary is within normal limits. There is normal arterial and venous Doppler flow. Left Ovary: Left ovary is within normal limits. There is normal arterial and venous Doppler flow. There are no gross adnexal masses or fluid collections. Free Fluid: No evidence of free fluid. IMPRESSION: Prior hysterectomy with no gross mass or fluid collection at the uterine fossa. There is no evidence of ovarian torsion. There are no gross adnexal masses or fluid collections. Interpreted by: Archie Aguiar Preliminary Report By: Archie Aguiar Electronically signed By Archie Aguiar Dictated Date: 09/07/2024 6:04:30 PM Prelim Date: 09/07/2024 6:10:04 PM Sign Date: 09/07/2024 6:10:04 PM Ordering Provider: [facility]01-01-2025 Note* Exam Date Time Procedure Performing Provider Status 09/07/24 5:[address] Abd/Pelvis w/ IV Contrast Only POLA WHITNEY DO; Auth (Verified) [id number] ORIGINAL EXAMINATION: CT OF THE ABDOMEN AND PELVIS WITH CONTRAST09/07/2024 5:45 pm TECHNIQUE: CT of the abdomen and pelvis was performed with the administration of intravenous contrast. Multiplanar reformatted images are provided for review. Automated exposure control, iterative reconstruction, and/or weight based adjustment of the mA/kV was utilized to reduce the radiation dose to as low as reasonably achievable. COMPARISON: 07/26/2024 HISTORY: ORDERING SYSTEM PROVIDED HISTORY: Reason for Exam: LLQ ABD PAIN, N/V X 2 MONTHS. HX UTERINE CA 2020. abdominal pain FINDINGS: The visualized lower thoracic structures are unremarkable. No acute osseous or soft tissue abnormality. The liver is unremarkable in size, contour, and attenuation. There is no intra or extrahepatic biliary duct dilation. No focal mass identified. Prior cholecystectomy. The pancreas, spleen, and adrenal glands are unremarkable. The kidneys enhance symmetrically without evidence of hydronephrosis or mass. Contrast is present in the bilateral renal collecting systems, ureters, and urinary bladder. The ureters are normal course and caliber. There is no evidence of urolithiasis. The visualized esophagus, stomach, and duodenum are unremarkable. The visualized aorta is nonaneurysmal. The GI tract exhibits no acute abnormalities. Unremarkable appendix. No pathologically enlarged retroperitoneal, mesenteric, or pelvic lymph nodes are identified. There is no free intraperitoneal air or fluid. The urinary bladder is well-distended without wall thickening or focal mass. The uterus is surgically absent. The bilateral ovaries appear unchanged. IMPRESSION: No acute process within the abdomen or pelvis. I have personally reviewed the images of this examination and agree with the resident's findings and interpretation. Interpreted by: Pola Prado Preliminary Report By: Erniechanell Villarreal Electronically signed By Pola Prado Dictated Date: 09/07/2024 5:47:53 PM Prelim Date: 09/07/2024 5:55:19 PM Sign Date: 09/07/2024 6:46:15 PM [facility] Exam Date Time Procedure Performing Provider Status 09/07/24 5:[address] Head or Brain w/o Contrast POLA PRADO DO; Auth (Verified) [id number] ORIGINAL EXAMINATION: CT OF THE HEAD WITHOUT CONTRAST 09/07/2024 5:46 pm TECHNIQUE: CT of the head was performed without the administration of intravenous contrast. Automated exposure control, iterative reconstruction, and/or weight based adjustment of the mA/kV was utilized to reduce the radiation dose to as low as reasonably achievable. COMPARISON: CT head without contrast 03/20/2021 HISTORY: ORDERING SYSTEM PROVIDED HISTORY: Reason for Exam: EDWARDS, DIZZINESS, BLURRED VISION TODAY. NO NEURO HX. HX UTERINE CA 2020. pain FINDINGS: BRAIN/VENTRICLES: There is no acute intracranial hemorrhage, mass effect or midline shift. No abnormal extra-axial fluid collection. The smith-white differentiation is maintained without evidence of an acute infarct. There is no evidence of hydrocephalus. ORBITS: The visualized portion of the orbits demonstrate no acute abnormality. SINUSES: The visualized paranasal sinuses and mastoid air cells demonstrate no acute abnormality. SOFT TISSUES/SKULL: No acute abnormality of the visualized skull or soft tissues. IMPRESSION: No acute intracranial abnormality. Interpreted by: Pola Prado Preliminary Report By: Pola Prado Electronically signed By Pola Prado Dictated Date: 09/07/2024 5:52:11 PM Prelim Date: 09/07/2024 5:53:33 PM Sign Date: 09/07/2024 5:53:33 PM Ordering Provider: MARYANA SALDIVAR [id number] Note* Exam Date Time Procedure Performing Provider Status 09/07/24 4:51 PM XR Chest 1 View POLA PRADO DO; Aut h (Verified) [id number] ORIGINAL EXAMINATION: ONE XRAY VIEW OF THE CHEST09/07/2024 4:51 pm COMPARISON: None HISTORY: ORDERING SYSTEM PROVIDED HISTORY: Reason for Exam: tachycardia FINDINGS: Cardiomediastinal contours are within normal limits. No focal consolidation or pulmonary edema. No pleural effusion or visible pneumothorax. The bony thorax appears intact. IMPRESSION: No acute radiographic findings. I have personally reviewed the images of this examination and agree with the resident's findings and interpretation. Interpreted by: Pola Prado Preliminary Report By: Ernie Villarreal Electronically signed By Pola Prado Dictated Date: 09/07/2024 4:56:12 PM Prelim Date: 09/07/2024 4:57:03 PM Sign Date: 09/07/2024 5:05:14 PM Ordering Provider: [facility]01-01-2025 Note* Exam Date Time Procedure Performing Provider Status 09/07/24 4:49 PM EKG (ED) - CV ALEN POMPA DO; Auth (V erified) ECG Final Report SINUS TACHYCARDIA PROLONGED QT INTERVAL Electronic Signature: ALEN POMPA DO 09/07/2024 17:18:45 [id number]12-28[facility]01[facility]21[facility]2024 Note [facility]12-21-2024 [facility]-20[facility]19[facility]20[facility] 08-25-2024 [facility]18[facility]20[facility]17[facility]20[facility]16[facility]20[facility]-16[facility]15-2024 Note [facility]12-14-2024 [facility]14-2024 NoteHNO ID: [id number] Author: NOTE, INTERFACE, ? Service: ? Author Type: ? Type: Progress Notes Filed: 08/25/2024 15:59 Note Text: Epic Scheduled Downtime: 08/20/2024 1:00:00 AM to 08/20/2024 2:52:17 [facility]12-13-2024 [facility]12-13-2024 NoteHNO ID: [id number] Author: POWER PHILLIPS RN Service: Nursing Author Type: Registered Nurse Type: Progress Notes Filed: 08/19/2024 11:01 Note Text: Pt refuse all PO medicine this morning, Queenie Santoyo TRAFFIC MANAGER , DRIP MOLDER notified. [facility]12-13-2024 [facility]12-12-20[facility] 08-16-2024 [facility]12[facility]09-[facility]-08-[facility]08-[facility]12-07-2024 [facility]12-07-2024 [facility] 08-13-2024 [facility]12-07-2024 [facility]12-06-2024 Note [id number] [facility]12-04-2024 [facility] 08-09-2024 [facility]12-03-2024 [facility]12-02-2024 Note [facility] [id number] [facility]12-02-2024 [facility] 08-07-2024 [facility]11-30-2024 [facility]11-29-2024 Note [facility] [id number] [facility]11-27-2024 [facility] 08-02-2024 [facility]11-25-2024 [facility]11-24-2024 Note [facility] [id number] [facility]11-18-2024 [facility] Medical Records Department [address] [place] [address] Discharge Summary 07/25/24 1205 MR#: [id number] Acct: [id number] Name: ADDIS TORRES #: [id number] : 2000 24 From: Gregory Cash MD PCP: Dr. Tj Willams MD Status:ADM JAQUI Location: [facility] [place] [id number] Providers Date of Admission: 07/23/24 Date of Discharge: 07/25/24 Primary Care Physician: Dr. Tj Willams MD Reason For Visit: N/V WITH DIFFUSE ABDOMINAL PAIN Diagnosis Discharge Diagnosis (1) Intractable nausea and vomiting: Status: Acute Code(s): R11.2 - Nausea with vomiting, unspecified (2) Hypokalemia: Status: Acute Code(s): E87.6 - Hypokalemia Medications at Discharge Home Medications acetaminophen 500 mg capsule 1,000 mg (2 x 500 mg) PO Q8H PRN PRN pain #60 caps 12/26/22 amitriptyline 10 mg tablet 10 mg PO QHS #30 TABLETS 04/28/24 pantoprazole 40 mg tablet,delayed release 40 mg PO BID #60 TABLETS 04/28/24 gabapentin 100 mg capsule 200 mg (2 x 100 mg) PO TID #180 caps 05/24/24 sucralfate 100 mg/mL oral suspension 10 ml PO QAC #414 mL 07/21/24 alprazolam 0.5 mg tablet 0.5 mg PO TID PRN abdominal pain #90 tabs 07/22/24 hyoscyamine sulfate 0.125 mg disintegrating tablet 0.125 mg PO TID PRN dyspepsia #90 tabs 07/22/24 ondansetron 4 mg disintegrating tablet 4 mg PO Q6H PRN nausea and vomiting #90 tabs 07/22/24 scopolamine base 1 mg over 3 days transdermal patch 1 patch transdermal Q72H #4 ea 07/22/24 dicyclomine 20 mg tablet 20 mg PO 4X/DAY PRN abdominal pain 07/23/24 metoclopramide HCl 5 mg tablet 5 mg PO 4X/DAY PRN nausea/vomiting 07/23/24 Hospital Course Summary of Care Provided Hospital Course: 24-year-old female was admitted with 1 week history of nausea vomiting and abdominal pain. Her abdominal pain is actually more like a discomfort in lower quadrants and it is not tender on exam. 1. Cyclic nausea and vomiting with right upper quadrant abdominal pain/discomfort with history of gastroparesis with erosive esophagitis and gastritis ??? She is on multiple medications for gastritis and gastric ulcer which includes pantoprazole, sucralfate, ondansetron, scopolamine, metoclopramide, amitriptyline and gabapentin. ???Diet was advanced to solids.CT of the abdomen from the outside hospital is negative for appendicitis or any intra-abdominal pathology, and right upper quadrant ultrasound is negative for cholecystitis or cholelithiasis. Patient had multiple evaluations in the ED which shows hyperemesis from cannabis. Discussed with the GI DrAndrew Combs and she was seen in the office on 07/22. Advised to follow-up in the GI office. 2. UA showed has high squamous epithelium with WBC more than 100 cells, bacteria 4+ but urine culture shows mixed gram-positive and negative organisms therefore UTI ruled out. Patient had Cipro since admission which is discontinued. 3. History of uterine cancer status post hysterectomy and ureteric injury: Patient follows Dr. Vanegas. Follow-up outpatient. DVT: Ambulation Physical Exam Narrative Seen and examined. Complain of bilateral lower abdominal discomfort. Nausea and vomiting has improved. Physical exam General: Alert, Oriented x3, Cooperative HEENT: Atraumatic, PERRLA, EOMI, Normocephalic Oral: No Gingival or Mucosal Lesions/ Ulcerations Neck: Supple, No JVD, Negative Carotid Bruits Chest wall/Lungs: Air entry diminished in bilateral lung bases. No crepitation/rhonchi Cardiovascular: Regular rate, Regular Rhythm, Normal S1, Normal S2, No M/G/R Abdomen: Bowel Sounds Present, Soft, Non Tender, Non-Distended. : No dysuria. No renal angle tenderness. No suprapubic tenderness. Extremities: No edema, Capillary Refill Less than 3 Seconds Skin: No rashes, No breakdown Musculoskeletal: No Tenderness to Palpation of Joints or Extremities Neurological: Cranial nerves II-XII grossly intact, DTR 2+/4. No acute focal neurological deficit. Psych/Mental Status: Flat affect. 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 as evidenced by 4% unplanned wt loss and inadequate 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 It can last for hours or even days. Attacks may occur several times a month or several times a year. Between episodes of CVS, you may be otherwise healthy. CVS is also called abdominal migraine. What are the causes? The cause of this condition is not known. Although many of the episodes can happen for no obvious reason, you may have specific CVS triggers. Episodes may be triggered by: An infection, especially colds and the flu. Emotional stress, including excitement or anxiety about upcoming events, such as school, parties, or travel. Certain foods or beverages, such as chocolate, cheese, alcohol, and food additives. Motion sickness. Eating a large meal before bed. Being very tired. Being too hot. What increases the risk? You are more likely to develop this condition if: You get migraine headaches. You have a family history of CVS or migraine headaches. What are the signs or symptoms? Symptoms tend to happen at the same time of day, and each episode tends to last about the same amount of time. Symptoms commonly start at night or when you wake up. Many people have warning signs (prodrome) before an episode, which may include slight nausea, sweating, and pale skin (pallor). The most common symptoms of a CVS attack include: Severe vomiting. Vomiting may happen every 5 15 minutes. Severe nausea. Gagging (retching). Other symptoms may include: Headache. Dizziness. Sensitivity to light. Extreme thirst. Abdominal pain. This can be severe. Loose stools or diarrhea. Fever. Pale skin (pallor), especially on the face. Weakness. Exhaustion. Sleepiness after a CVS episode. Dehydration. This can cause: ?Thirst. ?Dry mouth. ?Decreased urination. ?Fatigue. How is this diagnosed? This condition may be diagnosed based on your symptoms, medical history, and family history of CVS or migraine. Your health care provider will ask whether you have had: Episodes of severe nausea and vomiting that have happened a total of 5 or more times, or 3 or more times in the past 6 months. Episodes that last for 1 hour or more, and occur 1 week apart or farther apart. Episodes that are similar each time. Normal health between episodes. Your health care provider will also do a physical exam. To rule out other conditions, you may have tests, such as: Blood tests. Urine tests. Imaging tests. How is this treated? There is no cure for this condition, but treatment can help manage or prevent CVS episodes. Work with your health care provider to find the best treatment for you. Treatment may include: Avoiding stress and CVS triggers. Eating smaller, more frequent meals. Taking medicines, such as: ?Ozlm-olx-zxifkrt pain medicine. ?Anti-nausea medicines. ?Antacids. ?Antihistamines. ?Medicines for migraines. ?Antidepressants. ?Antibiotics. Severe nausea and vomiting may require you to stay at the hospital. You may need IV fluids to prevent or treat dehydration. Follow these instructions at home: During an episode Take mrly-yhe-yxcadfa and prescription medicines only as told by your health care provider. Stay in bed and rest in a dark, quiet room. After an episode Drink an oral rehydration solution (ORS), if directed by your health care provider. This is a drinkthat helps you replace fluids and the salts and minerals in your blood (electrolytes). It can be found at pharmacies and retail stores. Drink small amounts of clear fluids slowly and gradually add more. ?Drink clear fluids such as water or fruit juice that has water added (is diluted). You may also eat low-calorie popsicles. ?Avoid drinking fluids that contain a lot of sugar or caffeine, such as sports drinks and soda. Eat soft foods in small amounts every 3 4 hours. Eat your regular diet, but avoid spicy or fatty foods, such as cameroonian fries and pizza. General instructions Monitor your condition for any changes. If you were prescribed an antibiotic medicine, take it as told by your health care provider. Do notstop taking the antibiotic even if you start to feel better. Keep track of your attacks and symptoms, and pay attention to any triggers. Avoid those triggers when you can. Keep all follow-up visits as told by your health care provider. This is important. Contact a health care provider if: Your condition gets worse. You cannot drink fluids without vomiting. You have pain and trouble swallowing after an episode. Get help right away if: You have blood in your vomit. Your vomit looks like coffee grounds. You have stools that are bloody or black, or stools that look like tar. You have signs of dehydration, such as: ?Sunken eyes. ?Not making tears while crying. ?Very dry mouth. ?Cracked lips. ?Decreased urine production. ?Dark urine. Urine may be the color of tea. ?Weakness. ?Sleepiness. Summary Cyclic vomiting syndrome (CVS) causes episodes of severe nausea and vomiting that can last for hours or even days. Vomiting and diarrhea can make you feel weak and can lead to dehydration. If you notice signs of dehydration, call your health care provider right away. Treatment can help you manage or prevent CVS episodes. Work with your health care provider to find the best treatment for you. Keep all follow-up visits as told by your health care provider. This is important. This information is not intended to replace advice given to you by your health care provider. Make sure you discuss any questions you have with your health care provider. Document Released: 10/09/2017 Document Revised: 12/14/2019 Document Reviewed: 10/09/2017 [employer] Patient Education 2019 [employer]. Follow Up Care 07/20/2024 00:52:32 With:MD BERRY AUGUSTE Address: [address] [place] [address] [address] [place] [address]- [phone] When:3-7 days Comments:Please call to schedule your post-hospital appointment. [facility] 11-13-2024 Evaluation + Plan noteExtracted from: Title:History and Physical Author:LINDA YANCEY TRAFFIC MANAGER-DRIP MOLDER Date:07/20/24 1. 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 Patient adamantly denies cannabis use. She is also afraid of being labeled as pain med seeking. Patient was gently reassured that her pain is real and legitimate however given her history of gastroparesis and cannabis hyperemesis, opioids are not indicated. She follows with Dr. Combs, medical resident. Patient's home medications may be resumed including Reglan, Bentyl, amitriptyline, gabapentin as prescribed by gastroenterology. Explained to the patient that there is absolutely no judgment for her using cannabis as it is illegal. She was educated in the same manner as she has been in the past and that cessation of cannabis use will help to resolve this issue. Will add aqua K-pad. Patient refuses capsaicin. Haldol is contraindicated with Reglan. DVT prophylaxis: Mobility Code Status: Full code Plan of care discussed with patient. All questions answered. Patient verbalizes understanding is agreeable to plan of care. This dictation was performed using voice recognition software and may include grammatical and/or spelling errors. [facility] 11-13-2024 Note Discharge Instructions Thank you for allowing [facility] to assist you with your healthcare needs. The following is importantdischarge information regarding your hospital visit. 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 Your urine was positive for cannabis. Cannabis slows digestion down. This pain can be avoided by abstaining from cannabis use. Continue to use the medications that Dr. Combs has prescribed. Please plan to follow up with him. Follow Up Appointments Follow Up with MD BERRY AUGUSTE When:Within 3-7 days Where:[address] [place] [address] [address] [place] [address]- [phone] Additional Information: Please call to schedule your post-hospital appointment. The Following Activity and Diet Have Been Ordered for You Discharge Activity - Ordered -- Resume your pre-hospitalization activity, 07/20/24 12:52:00 EST Discharge Diet - Ordered -- No changes were made to your diet during your hospital stay. Please resume your pre hospitalization diet on discharge., 07/20/24 12:52:00 EST The Following Treatments Have Been Ordered for You Discharge Labs No qualifying data available. Discharge Radiology No qualifying data available. Other Therapies No qualifying data available. Post Acute Orders No qualifying data available. Allergies Lactated Ringers hives Phenergan vomiting Rocephin itching Medications Please ask your primary doctor or pharmacist before taking any other medication not listed, including over the counter drugs, herbal medications, vitamins and or supplements as they may interact withyour home medications. What How Much When Why Instructions Last Dose Unchanged dicyclomine (dicyclomine 20 mg oral tablet) 1 tab(s) by mouth Four (4) times a day as needed for As needed for abdominal discomfort Duration: 3 Days Unchanged metoclopramide (Reglan 5 mg oral tablet) 1 tab(s) by mouth Four (4) times a day as needed for As needed for nausea and vomiting Duration: 3 Days Unchanged ondansetron (Zofran ODT use ondansetron oral tablet, disintegrating ) 4 Milligram by mouth Every 8 hours Abdominal pain Duration: 7 Days Unchanged pantoprazole (pantoprazole 40 mg oral enteric coated tablet) 1 tab(s) by mouth Once a day Unchanged tamsulosin (tamsulosin 0.4 mg oral capsule) 1 cap by mouth Once a day Please take this list to your next doctor s visit. Bring all medications you take, including over the counter medications, herbals and other supplements with you to your doctor s visit. Patients and families are reminded to discard old lists and to update any records with all medication providers or retail pharmacies. Education Materials Cyclic Vomiting Syndrome, Adult Cyclic vomiting syndrome (CVS) is a condition that causes episodes of severe nausea and vomiting. It can last for hours or even days. Attacks may occur several times a month or several times a year. Between episodes of CVS, you may be otherwise healthy. CVS is also called abdominal migraine. What are the causes? The cause of this condition is not known. Although many of the episodes can happen for no obvious reason, you may have specific CVS triggers. Episodes may be triggered by: An infection, especially colds and the flu. Emotional stress, including excitement or anxiety about upcoming events, such as school, parties, or travel. Certain foods or beverages, such as chocolate, cheese, alcohol, and food additives. Motion sickness. Eating a large meal before bed. Being very tired. Being too hot. What increases the risk? You are more likely to develop this condition if: You get migraine headaches. You have a family history of CVS or migraine headaches. What are the signs or symptoms? Symptoms tend to happen at the same time of day, and each episode tends to last about the same amount of time. Symptoms commonly start at night or when you wake up. Many people have warning signs (prodrome) before an episode, which may include slight nausea, sweating, and pale skin (pallor). The most common symptoms of a CVS attack include: Severe vomiting. Vomiting may happen every 5 15 minutes. Severe nausea. Gagging (retching). Other symptoms may include: Headache. Dizziness. Sensitivity to light. Extreme thirst. Abdominal pain. This can be severe. Loose stools or diarrhea. Fever. Pale skin (pallor), especially on the face. Weakness. Exhaustion. Sleepiness after a CVS episode. Dehydration. This can cause: ? Thirst. ? Dry mouth. ? Decreased urination. ? Fatigue. How is this diagnosed? This condition may be diagnosed based on your symptoms, medical history, and family history of CVS or migraine. Your health care provider will ask whether you have had: Episodes of severe nausea and vomiting that have happened a total of 5 or more times, or 3 or more times in the past 6 months. Episodes that last for 1 hour or more, and occur 1 week apart or farther apart. Episodes that are similar each time. Normal health between episodes. Your health care provider will also do a physical exam. To rule out other conditions, you may have tests, such as: Blood tests. Urine tests. Imaging tests. How is this treated? There is no cure for this condition, but treatment can help manage or prevent CVS episodes. Work with your health care provider to find the best treatment for you. Treatment may include: Avoiding stress and CVS triggers. Eating smaller, more frequent meals. Taking medicines, such as: ? Gsll-eut-moihgwu pain medicine. ? Anti-nausea medicines. ? Antacids. ? Antihistamines. ? Medicines for migraines. ? Antidepressants. ? Antibiotics. Severe nausea and vomiting may require you to stay at the hospital. You may need IV fluids to prevent or treat dehydration. Follow these instructions at home: During an episode Take tjng-gke-qcwhlxd and prescription medicines only as told by your health care provider. Stay in bed and rest in a dark, quiet room. After an episode Drink an oral rehydration solution (ORS), if directed by your health care provider. This is a drinkthat helps you replace fluids and the salts and minerals in your blood (electrolytes). It can be found at pharmacies and retail stores. Drink small amounts of clear fluids slowly and gradually add more. ? Drink clear fluids such as water or fruit juice that has water added (is diluted). You may also eatlow-calorie popsicles. ? Avoid drinking fluids that contain a lot of sugar or caffeine, such as sports drinks and soda. Eat soft foods in small amounts every 3 4 hours. Eat your regular diet, but avoid spicy or fatty foods, such as cameroonian fries and pizza. General instructions Monitor your condition for any changes. If you were prescribed an antibiotic medicine, take it as told by your health care provider. Do notstop taking the antibiotic even if you start to feel better. Keep track of your attacks and symptoms, and pay attention to any triggers. Avoid those triggers when you can. Keep all follow-up visits as told by your health care provider. This is important. Contact a health care provider if: Your condition gets worse. You cannot drink fluids without vomiting. You have pain and trouble swallowing after an episode. Get help right away if: You have blood in your vomit. Your vomit looks like coffee grounds. You have stools that are bloody or black, or stools that look like tar. You have signs of dehydration, such as: ? Sunken eyes. ? Not making tears while crying. ? Very dry mouth. ? Cracked lips. ? Decreased urine production. ? Dark urine. Urine may be the color of tea. ? Weakness. ? Sleepiness. Summary Cyclic vomiting syndrome (CVS) causes episodes of severe nausea and vomiting that can last for hours or even days. Vomiting and diarrhea can make you feel weak and can lead to dehydration. If you notice signs of dehydration, call your health care provider right away. Treatment can help you manage or prevent CVS episodes. Work with your health care provider to find the best treatment for you. Keep all follow-up visits as told by your health care provider. This is important. This information is not intended to replace advice given to you by your health care provider. Make sure you discuss any questions you have with your health care provider. Document Released: 10/09/2017 Document Revised: 12/14/2019 Document Reviewed: 10/09/2017 Elsevier Patient Education 2019 [employer] Additional Information VACCINATE! IT SAVES LIVES! Members of the community who have not yet received the COVID-19 vaccine and would like to receive it can visit one of [facility] vaccine clinics. There are many vaccine clinic locations within the [facility]. For locations and available times, please visit [email or web address] It is important to note that some COVID mobile vaccine clinics are held outdoors and may be canceled in rainy or stormy conditions. To learn more about pediatric vaccinations (ages 5-11), we invite you to visit the [facility] webpage. [email or web address] learn more about the COVID-19 vaccine, we invite you to visit the CDC website for a list of frequently asked questions.https://www.cdc.gov/coronavirus/2019-ncov/vaccines/faq.html [facility] Patient Portal Access Instructions: Stay connected with your healthcare team and access your personal medical information anytime with the [facility] Patient Portal. Please follow the directions below to create your [facility] account: 1.Access the email account you provided upon registration to the hospital/physician office.2.Look for an invitation email from [facility].3.Open the email and access the invitation link: AcceptInvitation to [employer].4.Fill in the required goel to create your account. To access your account, visit [email or web address]. Click the blue button labeled Access Patient Portal and then log in with the username and password that you created in the steps above. You will be able to view your test results, lab results, a summary of your visits, upcoming appointments and more. There is also a convenient messaging option where you can send secure messages to your p rovider. In addition, you will have the ability to download any documents or summaries to your computer and/or send the information securely to a physician. Remember that your healthcare information is confidential, so carefully consider who you will allowto register on the [facility] Patient Portal for access to your information. You can also access the [facility] Patient Portal on the [facility] jairo. Simply click on Patient Portal and then log into your account. If you would like to receive a full copy of your medical records, please contact the [facility] Medical Records Department by calling [phone], Thursday through Thursday between 8 a.m. and 4:30 p.m. HOW TO SAFELY DISPOSE OF PRESCRIPTION MEDICATIONS Please use one of the following methods to safely dispose of your unused medications. 1.Use a drug disposal kit: the drug disposal pouch allows you to safely discard your old and unuseddrugs. Ask your nurse to give you one when you are discharged.2.Visit a local take-back location: Many local pharmacies and police departments have programs that collect old and unwanted prescriptiondrugs. Call your local pharmacy or go to http://[employer]/2U7Ot5r to find one close to you.3.Make use of household items: Use cat litter or old coffee grounds to dispose medications if other options arenot available. Mix your drugs with these household products, seal them in an airtight container andthrow it into the garbage. Call [facility]: [phone] to be sure your drugs can be disposed of in this way. Some medicines may require a different approach.4.Never flush your medications down the toilet. IF YOU HAVE BEEN PRESCRIBED AN OPIOID FOR PAIN If you have been prescribed an opioid (such as hydrocodone, oxycodone or morphine), it is critical to understand the possible side effects and risks of opioid pain medications. Even when taken as directed, opioids can have several side effects including: Tolerance, meaning you might need to take more of a medication for the same pain relief. Nausea, vomiting and/or constipation. Sleepiness, dizziness, dry mouth, confusion, depression or itching. Physical dependence, meaning you have withdrawal symptoms when a medication is stopped, can develop within a few days. KNOW YOUR RESPONSIBILITIES It is important to know exactly how much and how often to take the opioid pain medications you are prescribed. Never take opioids in higher amounts or more often than prescribed. Do not combine opioids with alcohol or other drugs that cause drowsiness, such as benzodiazepines, also known as benzos, including diazepam and alprazolam, muscle relaxants or sleep aids. Never sell or share prescription opioids. This is illegal. Store opioids in a secure place and out of reach of others (including children, family, friends and visitors). The last page of this document has been signed and retained as a CHART COPY. Signatures Patient Education Materials Cyclic Vomiting Syndrome, Adult Medication Leaflets My discharge plan and instructions have been reviewed and explained to me and I,TORRESADDIS understand my current condition and have read and understand these discharge instructions. I have received a written copy of the plan/instructions. If I have questions, I am aware that I should contact my doctor. Patient/Watch Supervisor Signature: Date/Time: Relationship to Patient: Witness Name/Signature: Date/Time: [facility]11-13-2024 Note Date of Service 07/20/2024 Chief Complaint here this am for same / states abd pain after pain meds wore off and stuff we gave her didn't help much and then she vomited again. pain in belly. unable to follow up w/ GI History of Present Illness 24-year-old female with past medical history significant for cyclic vomiting syndrome, depression, gastroparesis, alcohol dependence, hypertension, PCOS, endometrial cancer s/p hysterectomy. Patient presented to [facility] emergency department on 07/20/2024 for intractable nausea andvomiting as well as abdominal pain. She was in the emergency department on 07/19 as well. She was at [facility] on 07/18 where urine was positive for cannabis. She was discharged. In the emergency department here vital signs were stable though mildly tachycardic. White blood cell count 11.5. Potassium level 3.3. Remainder of labs unremarkable. Urinalysis with specific gravity greater than 1.030. Positive ketones. CT scan from 07/19 showed no acute process. She was given Haldol, Toradol, Reglan, Zofran, potassium, IV fluids and subsequently admitted. On exam today, pt denies any fever or chills. No headache or dizziness. Denies chest pain, palpitations. No cough, dyspnea, sputum production. Admits nausea and abdominal pain. Hot showers help with pain. No melena/hematochezia. No dysuria or hematuria. No new paresthesias. Review of Systems See HPI for specific ROS. All other systems reviewed and negative. Physical Exam Vitals and Measurements T: 36.9 C (Oral) TMIN: 36.8 C (Oral) TMAX: 36.9 C (Oral) HR: 74 (Monitored) RR: 16 BP: 138/84 SpO2:100% HT: 172.7 cm WT: 111.9 kg BMI: 37.52 Weight Dosing Weight: 111.9 kg (07/20/24) GEN: Appears chronically ill EYES: No conjunctival erythema, drainage. EOMI EARS: Hearing grossly intact. NOSE: No nasal discharge. THROAT: Oral cavity and pharynx pink and moist. CHEST: Normal S1 and S2. Rhythm is regular. Clear to auscultation, without rales, rhonchi, wheezing. ABD: Positive bowel sounds x 4 quads. Soft, nondistended, nontender. EXT: No significant deformity or joint abnormality. No edema. Peripheral pulses intact. NEURO: Sensation grossly intact SKIN: Skin color normal PSYCH: The mental examination revealed the patient was alert and oriented x 4 Lab Results 07/20 09:18 WBC: 12.5 H Hgb: 11.2 L Hct: 34.5 Platelet: 281 Neutrophil %: 91.9 H Glucose Level: 97 Sodium Level: 132 L Potassium Level: 3.5 BUN: 4 L Creatinine Lvl (s): 0.75 07/20 03:34 WBC: 11.5 H Hgb: 11.1 L Hct: 33.9 L Platelet: 257 Neutrophil %: 84.7 H Glucose Level: 247 H Sodium Level: 134 L Potassium Level: 3.3 L BUN: 8 Creatinine Lvl (s): 1.02 Assessment/Plan 1. Cannabis hyperemesis syndrome concurrent with and due to cannabis dependence Cannabis hyperemesis syndrome urine drug screen positive for cannabis. Patient adamantly denies cannabis use. She is also afraid of being labeled as pain med seeking. Patient was gently reassured that her pain is real and legitimate however given her history of gastroparesis and cannabis hyperemesis, opioids are not indicated. She follows with Dr. Combs, medical resident. Patient's home medications may be resumed including Reglan, Bentyl, amitriptyline, gabapentin as prescribed by gastroenterology. Explained to the patient that there is absolutely no judgment for her using cannabis as it is illegal. She was educated in the same manner as she has been in the past and that cessation of cannabis use will help to resolve this issue. Will add aqua K-pad. Patient refuses capsaicin. Haldol is contraindicated with Reglan. DVT prophylaxis: Mobility Code Status: Full code Plan of care discussed with patient. All questions answered. Patient verbalizes understanding is agreeable to plan of care. This dictation was performed using voice recognition software and may include grammatical and/or spelling errors. Procedure/Surgical History Ureter Hysterectomy Medications Home Medications (5) Active dicyclomine 20 mg oral tablet 20 mg = 1 tab(s), PRN, Oral, QID pantoprazole 40 mg oral enteric coated tablet 40 mg = 1 tab(s), Oral, qDay Reglan 5 mg oral tablet 5 mg = 1 tab(s), PRN, Oral, QID tamsulosin 0.4 mg oral capsule 0.4 mg = 1 cap(s), Oral, qDay Zofran ODT use ondansetron oral tablet, disintegrating 4 mg, Oral, q8h Allergies Lactated Ringers hives Phenergan vomiting Rocephin itching Social History Smoking Status - 07/06/2017 Never smoker Alcohol - Denies Alcohol Use, 05/28/2017 Use: Never., 01/21/2021 Home/Environment Living situation: Home with assistance. Lives In: Single level home. Current Home Treatments None.,07/20/2024 Nutrition/Health Type of diet: Regular. Appetite Poor. Eating Difficulties None. Enteral Feedings No. TPN Feedings No. Skin Breakdown No., 07/20/2024 Substance Abuse - Denies Substance Abuse, 05/28/2017 Use: Past. Type: Marijuana. Frequency: stoped 2 months ago., 07/20/2024 Tobacco - Denies Tobacco Use, 02/07/2021 Nicotine Use: Never (less than 100 in lifetime)., 01/21/2021 Family History Family history is unknown Immunizations diphtheria/tetanus/pertussis (DTaP) ped: 0 unknown unit (07/16/06) haemophilus b-hepatitis B vaccine: 0 unknown unit (01/11/03) haemophilus b-hepatitis B vaccine: 0 unknown unit (00) haemophilus b-hepatitis B vaccine: 0 unknown unit (00) Human Papillomavirus Quadval: 0.5 unknown unit (03/14/21) measles/mumps/rubella virus vaccine: 0 unknown unit (04/30/05) measles/mumps/rubella virus vaccine: 0 unknown unit (01/11/03) meningococcal conjugate vaccine: 0 unknown unit (04/29/13) poliovirus vaccine, inactivated: 0 unknown unit (04/30/05) poliovirus vaccine, inactivated: 0 unknown unit (01/11/03) poliovirus vaccine, inactivated: 0 unknown unit (00) poliovirus vaccine, inactivated: 0 unknown unit (00) tetanus/diphth/pertuss (Tdap) adult/adol: 0.5 mL (02/26/23) tetanus/diphth/pertuss (Tdap) adult/adol: 0 unknown unit (04/29/13) varicella virus vaccine: 0 unknown unit (04/29/13) varicella virus vaccine: 0 unknown unit (07/17/06) Code Status Code Status - Ordered -- 07/20/24 6:46:00 EST, Full Code, Constant Order Digitally Signed by LINDA YANCEY on 07/20/2024 12:27 PM [facility]11-13-[address] Wilburn made aware that patient wants to be admitted. He is going to call hospitalist. Digitally Signed by Christine Villa RN on 07/20/2024 06:21 AM [facility]11-12-2024 Hospital Discharge instructions Patient Education 07/19/2024 07:52:07 Vomiting (Adult) Vomiting (Adult) Vomiting is a common symptom that may be due to different causes. These include gastroenteritis (stomach flu), food poisoning and gastritis. There are other more serious causes of vomiting which may be hard to diagnose early in the illness. Therefore, it is important to watch for the warning signs listed below. The main danger from repeated vomiting is dehydration. This is due to excess loss of water and minerals from the body. When this occurs, your body fluids must be replaced. Home care If symptoms are severe, rest at home for the next 24 hours. Because your symptoms may be from an infection, wash your hands often and well. If soap and water are not available, use alcohol-based boat engines installer to keep from spreading the infection to others. Wash your hands for at least 20 seconds. Humming the happy birthday song twice while you wash is aneasy way to make sure you've washed for 20 seconds. Wash your hands after using the toilet, before and after preparing food, before eating food, after changing a diaper, cleaning a wound, caring for a sick person, and blowing your nose, coughing, or sneezing. You should also wash your hands after caring for someone who is sick, touching pet food, ortreats, and touching an animal, or animal waste. You may use acetaminophen or NSAID medicines like ibuprofen or naproxen to control fever, unless another medicine was prescribed. If you have chronic liver or kidney disease or ever had a stomach ulcer or gastrointestinal bleeding, talk with your doctor before using these medicines. Aspirin should never be used in anyone under 18 years of age who is ill with a fever. It may cause severe liver damage. Don't use NSAID medicines if you are already taking one for another condition (like arthritis) or are on aspirin (such as for heart disease, or after a stroke) Don't use tobacco and or drink alcohol, which may worsen your symptoms. If medicines for vomiting were prescribed, take as directed. Once vomiting stops, then follow these guidelines: During the first 12 to 24 hours follow the diet below: Fruit juices. Apple, grape juice, clear fruit drinks, and electrolyte replacement drinks. Beverages. Soft drinks without caffeine; mineral water (plain or flavored), decaffeinated tea and coffee. Soups. Clear broth and bouillon Desserts. Plain gelatin, ice pops, and fruit juice bars. As you feel better, you may add 6 to 8 ounces of yogurt per day. During the next 24 hours you may add the following to the above: Hot cereal, plain toast, bread, rolls, crackers Plain noodles, rice, mashed potatoes, chicken noodle or rice soup Unsweetened canned fruit such as applesauce, bananas (avoid pineapple and citrus) Limit caffeine and chocolate. No spices or seasonings except salt. During the next 24 hours: Gradually resume a normal diet, as you feel better and your symptoms lessen. Follow-up care Follow up with your healthcare provider, or as advised. When to seek medical advice Call your healthcare provider right away if any of these occur: Constant right-sided lower belly pain or increasing general belly pain Continued vomiting (unable to keep liquids down) for 24 hours Vomiting blood or coffee grounds Swollen belly Frequent diarrhea (more than 5 times a day); blood (red or black color) or mucus in diarrhea Reduced urine output or extreme thirst Weakness, dizziness or fainting Unusually drowsy or confused Fever of 100.4 F (38 C) oral or higher, or as directed Yellow color of the eyes or skin [id number] [employer]. [address] [place] [address]. All rights reserved. This information is not intended as a substitute for professional medical care. Always follow yourhealthcare professional's instructions. 07/19/2024 07:52:01 Abdominal Pain Abdominal Pain Abdominal pain is pain in the stomach or belly area. Everyone has this pain from time to time. In many cases it goes away on its own. But abdominal pain can sometimes be due to a serious problem, such as appendicitis. So it s important to know when to get help. Causes of abdominal pain There are many possible causes of abdominal pain. Common causes in adults include: Constipation, diarrhea, or gas Stomach acid flowing back up into the esophagus (acid reflux or heartburn) Severe acid reflux, called GERD (gastroesophageal reflux disease) A sore in the lining of the stomach or small intestine (peptic ulcer) Inflammation of the gallbladder, liver, or pancreas Gallstones or kidney stones Appendicitis Intestinal blockage An internal organ pushing through a muscle or other tissue (hernia) Urinary tract infections In women, menstrual cramps, fibroids, ovarian cysts, pelvic inflammatory disease, or endometriosis Inflammation or infection of the intestines, including Crohn's disease and ulcerative colitis Irritable bowel syndrome Diagnosing the cause of abdominal pain Your healthcare provider will give you a physical exam help find the cause of your pain. If needed,you will have tests. Belly pain has many possible causes. So it can be hard to find the reason for your pain. Giving details about your pain can help. Tell your provider where and when you feel the pain, and what makes it better or worse. Also let your provider know if you have other symptoms such as: Fever Tiredness Upset stomach (nausea) Vomiting Changes in bathroom habits Blood in the stool or black, tarry stool Weight loss that you can't explain (involuntary weight loss?) Also report any family history of stomach or intestinal problems, or cancers. Tell your provider about all your alcohol use and drug use. Tell your provider about all medicines you use, including herbs, vitamins, and supplements. Treating abdominal pain Some causes of pain need emergency medical treatment right away. These include appendicitis or a bowel blockage. Other problems can be treated with rest, fluids, or medicines. Your healthcare provider can give you specific instructions for treatment or self-care based on what is causing your pain. If you have vomiting or diarrhea, sip water or other clear fluids. When you are ready to eat solid foods again, start with small amounts of emfx-wf-qrxayz, low- fat foods. These include apple sauce, toast, or crackers. When to get medical care Call 911 or go to the hospital right away if you: Can t pass stool and are vomiting Are vomiting blood or have bloody diarrhea or black, tarry diarrhea Have chest, neck, or shoulder pain Feel like you might pass out Have pain in your shoulder blades with nausea Have sudden, severe belly pain Have new, severe pain unlike any you have felt before Have a belly that is rigid, hard, and hurts to touch Call your healthcare provider if you have: Pain for more than 5 days Bloating for more than 2 days Diarrhea for more than 5 days A fever of 100.4 F (38 C) or higher, or as directed by your healthcare provider Pain that gets worse Weight loss for no reason Continued lack of appetite Blood in your stool How to prevent abdominal pain Here are some tips to help prevent abdominal pain: Eat smaller amounts of food at each meal. Don't eat greasy, fried, or other high-fat foods. Don't eat foods that give you gas. Exercise regularly. Drink plenty of fluids. To help prevent GERD symptoms: Quit smoking. Reduce alcohol and foods that increase stomach acid. Don't use aspirin or ajdx-hvu-wzydtzk pain and fever medicines, if possible. This includes nonsteroidal anti-inflammatory drugs (NSAIDs). Lose excess weight. Finish eating at least 2 hours before you go to bed or lie down. Raise the head of your bed. [id number] [employer]. [address] [place] [address]. All rights reserved. This information is not intended as a substitute for professional medical care. Always follow yourhealthcare professional's instructions. 07/19/2024 07:51:52 Gastroparesis Gastroparesis Gastroparesis means that food and fluids move too slowly out of the stomach into the duodenum. Gastroparesis (also called delayed gastric emptying) happens when the stomach takes longer than normal to empty of food. This is due to a problem with motility (the movement of the muscles in the digestive tract). For many people, gastroparesis is a lifelong condition. But treatment can help relieve symptoms and prevent complications. Read on to learn more about gastroparesis and how it can be managed. How gastroparesis develops With normal motility, signals from nerves tell the stomach muscles when to contract. These muscles move food from the stomach into the duodenum (the first part of the small bowel). With gastroparesis, the nerves or muscles are damaged. This causes motility to slow down or stop completely. As a result, food cannot move from the stomach properly. This delayed emptying can cause nausea, vomiting, and other symptoms. Malnutrition can result. Bezoars (hardened lumps of food) can form in the stomach and cause other complications as well. Causes of gastroparesis Gastroparesis can be caused by any of the following: Diabetes Surgery involving any of the digestive organs, such as the stomach and bowels Certain medicines, such as strong pain medicines (narcotics) Certain conditions, such as systemic scleroderma, Parkinson disease, and thyroid disease After a viral illness In many cases, the cause of gastroparesis cannot be found. Signs and symptoms of gastroparesis These can include: Nausea and vomiting Feeling full quickly when eating Belly pain Heartburn Belly bloating Weight loss Loss of appetite High and low blood sugar levels (in people with diabetes) Diagnosing gastroparesis Your healthcare provider will ask about your symptoms and health history. You ll also be examined. In addition, blood tests and X-rays are often done to check your health and rule out other problems.To confirm the problem, you may need other tests as well. These can include: Upper endoscopy. This is done to see inside the stomach and duodenum. For the test, an endoscope isused. This is a thin, flexible tube with a tiny camera on the end. It s inserted through the mouth and down into the stomach and duodenum. Upper gastrointestinal (GI) series. This is done to take X-rays of the upper GI tract from the mouth to the small bowel. For the test, a substance called barium is used. The barium coats the upper GItract so that it will show up clearly on X-rays. Gastric emptying scan. This is done to measure how quickly food leaves the stomach. For the test, ameal containing a harmless radioactive substance (tracer) is eaten. Then scans of the stomach are done. The tracer shows up clearly on the scans and shows the movement of the food through the stomach. Antroduodenal manometry. This test gives pressure measurements of the stomach and small intestine to check how the contractions are working. Newer tests. These are being created and include breath tests and wireless capsule studies and wireless motility capsule of the entire intestinal tract Treating gastroparesis The goal of treatment is to help you manage your condition. Treatment may include one or more of the following: Dietary changes. You may need to make changes to your eating habits and daily diet. For instance, your healthcare provider may instruct you to eat small meals throughout the day. Doing this can keep you from feeling full too quickly. You may be placed on a liquid or soft diet. This means you ll eatliquid foods or foods that are mashed or put through a special agent in charge. In addition, you may need to avoid foods high in fats and fiber. These can slow digestion. For more help with your diet, your healthcare provider can refer you to a dietitian. In severe cases, you may need a feeding tube. This sends liquid food or medicine directly to your small bowel, bypassing the stomach. Treating diabetes. If you are diabetic, it is important to control your blood sugar. High sugar levels worsen gastroparesis. Medicines. These can help manage symptoms, such as nausea and vomiting. They can also improve motility. Each medicine has specific risks and side effects. Your doctor can tell you more about any medicine that is prescribed for you. Narcotic pain relievers and certain other medications should be stopped if they are contributing toyour gastroparesis Surgery. You may need to have a tube surgically inserted into the stomach. The tube removes excess air and fluid. This can relieve severe symptoms of nausea and vomiting. In rare cases, other surgerymay be needed on the stomach or small bowel. This is to create a new passageway for food to be emptied from the stomach. Gastric electrical stimulation. This treatment is done less often and may not be available. Your healthcare provider can tell you more about this treatment if it is a choice for you. Diabetes and gastroparesis If you have diabetes, gastroparesis can make it harder to manage your blood sugar level. You ll need to take extra steps in your treatment to prevent complications. Work with your healthcare providerto learn what you can do to protect your health. For more information, contact the [place] [employer], www.diabetes.org. Long-term concerns With treatment, most people can manage their symptoms and maintain their usual routines. If your symptoms are moderate to severe, you may need to see your healthcare provider more often for checkups.Also, other treatments will likely be needed. 4512-[address] [employer] [place] [address]. All rights reserved. This information is not intended as a substitute for professional medical care. Always follow yourhealthcare professional's instructions. Follow Up Care 07/19/2024 05:36:11 With:CORINE COMBS Address: [address] [facility] [place] [address] [phone] Business (1) When:2-4 days Comments:Schedule appointment for close follow-up.Push fluids, bland diet as tolerated.Use Tylenol, Advil orAleve for pain as needed.Use dicyclomine for abdominal discomfort unrelieved with shib-qou-zyqgjqw medications and Reglan for nausea and vomiting as needed.Return to the ED if symptoms worsen. [facility] 11-12-2024 Note Discharge Instructions Thank you for allowing [facility] to assist you with your healthcare needs. The following is importantdischarge information regarding your hospital visit. What to Do Next Instructions from Your Care Team No qualifying data available. Post Acute Orders No qualifying data available. You Need to Schedule the Following Appointments Follow Up with CORINE COMBS When:Within 2-4 days Where:[address] [facility] [place] [address]- [phone] Business (1) Additional Information: Schedule appointment for close follow-up. Push fluids, bland diet as tolerated. Use Tylenol, Advil or Aleve for pain as needed. Use dicyclomine for abdominal discomfort unrelieved with ugei-kwa-jwgkzho medications and Reglan for nausea and vomiting as needed. Return to the ED if symptoms worsen. Allergies Lactated Ringers Phenergan Rocephin Medications Please ask your primary doctor or pharmacist before taking any other medication not listed, including over the counter drugs, herbal medications, vitamins and or supplements as they may interact withyour home medications. What How Much When Why Instructions Last Dose New dicyclomine (dicyclomine 20 mg oral tablet) 1 tab(s) by mouth Four (4) times a day as needed for As needed for abdominal discomfort Duration: 3 Days Printed Prescription New metoclopramide (Reglan 5 mg oral tablet) 1 tab(s) by mouth Four (4) times a day as needed for As needed for nausea and vomiting Duration: 3 Days Printed Prescription Unchanged docusate (Colace 100 mg oral capsule) 1 cap by mouth Two (2) times a day as needed for as needed for constipation Flank pain Unchanged ondansetron (Zofran ODT use ondansetron oral tablet, disintegrating ) 4 Milligram by mouth Every 8 hours Abdominal pain Duration: 7 Days Unchanged pantoprazole (pantoprazole 40 mg oral enteric coated tablet) 1 tab(s) by mouth Once a day Unchanged tamsulosin (tamsulosin 0.4 mg oral capsule) 1 cap by mouth Once a day Please take this list to your next doctor s visit. Bring all medications you take, including over the counter medications, herbals and other supplements with you to your doctor s visit. Patients and families are reminded to discard old lists and to update any records with all medication providers or retail pharmacies. Education Materials Vomiting (Adult) Vomiting is a common symptom that may be due to different causes. These include gastroenteritis (stomach flu), food poisoning and gastritis. There are other more serious causes of vomiting which may be hard to diagnose early in the illness. Therefore, it is important to watch for the warning signs listed below. The main danger from repeated vomiting is dehydration. This is due to excess loss of water and minerals from the body. When this occurs, your body fluids must be replaced. Home care If symptoms are severe, rest at home for the next 24 hours. Because your symptoms may be from an infection, wash your hands often and well. If soap and water are not available, use alcohol-based boat engines installer to keep from spreading the infection to others. Wash your hands for at least 20 seconds. Humming the happy birthday song twice while you wash is aneasy way to make sure you've washed for 20 seconds. Wash your hands after using the toilet, before and after preparing food, before eating food, after changing a diaper, cleaning a wound, caring for a sick person, and blowing your nose, coughing, or sneezing. You should also wash your hands after caring for someone who is sick, touching pet food, ortreats, and touching an animal, or animal waste. You may use acetaminophen or NSAID medicines like ibuprofen or naproxen to control fever, unless another medicine was prescribed. If you have chronic liver or kidney disease or ever had a stomach ulcer or gastrointestinal bleeding, talk with your doctor before using these medicines. Aspirin should never be used in anyone under 18 years of age who is ill with a fever. It may cause severe liver damage. Don't use NSAID medicines if you are already taking one for another condition (like arthritis) or are on aspirin (such as for heart disease, or after a stroke) Don't use tobacco and or drink alcohol, which may worsen your symptoms. If medicines for vomiting were prescribed, take as directed. Once vomiting stops, then follow these guidelines: During the first 12 to 24 hours follow the diet below: Fruit juices. Apple, grape juice, clear fruit drinks, and electrolyte replacement drinks. Beverages. Soft drinks without caffeine; mineral water (plain or flavored), decaffeinated tea and coffee. Soups. Clear broth and bouillon Desserts. Plain gelatin, ice pops, and fruit juice bars. As you feel better, you may add 6 to 8 ounces of yogurt per day. During the next 24 hours you may add the following to the above: Hot cereal, plain toast, bread, rolls, crackers Plain noodles, rice, mashed potatoes, chicken noodle or rice soup Unsweetened canned fruit such as applesauce, bananas (avoid pineapple and citrus) Limit caffeine and chocolate. No spices or seasonings except salt. During the next 24 hours: Gradually resume a normal diet, as you feel better and your symptoms lessen. Follow-up care Follow up with your healthcare provider, or as advised. When to seek medical advice Call your healthcare provider right away if any of these occur: Constant right-sided lower belly pain or increasing general belly pain Continued vomiting (unable to keep liquids down) for 24 hours Vomiting blood or coffee grounds Swollen belly Frequent diarrhea (more than 5 times a day); blood (red or black color) or mucus in diarrhea Reduced urine output or extreme thirst Weakness, dizziness or fainting Unusually drowsy or confused Fever of 100.4 F (38 C) oral or higher, or as directed Yellow color of the eyes or skin [id number] [employer]. [address] [place] [address]. All rights reserved. This information is not intended as a substitute for professional medical care. Always follow yourhealthcare professional's instructions. Abdominal Pain Abdominal pain is pain in the stomach or belly area. Everyone has this pain from time to time. In many cases it goes away on its own. But abdominal pain can sometimes be due to a serious problem, such as appendicitis. So it s important to know when to get help. Causes of abdominal pain There are many possible causes of abdominal pain. Common causes in adults include: Constipation, diarrhea, or gas Stomach acid flowing back up into the esophagus (acid reflux or heartburn) Severe acid reflux, called GERD (gastroesophageal reflux disease) A sore in the lining of the stomach or small intestine (peptic ulcer) Inflammation of the gallbladder, liver, or pancreas Gallstones or kidney stones Appendicitis Intestinal blockage An internal organ pushing through a muscle or other tissue (hernia) Urinary tract infections In women, menstrual cramps, fibroids, ovarian cysts, pelvic inflammatory disease, or endometriosis Inflammation or infection of the intestines, including Crohn's disease and ulcerative colitis Irritable bowel syndrome Diagnosing the cause of abdominal pain Your healthcare provider will give you a physical exam help find the cause of your pain. If needed,you will have tests. Belly pain has many possible causes. So it can be hard to find the reason for your pain. Giving details about your pain can help. Tell your provider where and when you feel the pain, and what makes it better or worse. Also let your provider know if you have other symptoms such as: Fever Tiredness Upset stomach (nausea) Vomiting Changes in bathroom habits Blood in the stool or black, tarry stool Weight loss that you can't explain (involuntary weight loss?) Also report any family history of stomach or intestinal problems, or cancers. Tell your provider about all your alcohol use and drug use. Tell your provider about all medicines you use, including herbs, vitamins, and supplements. Treating abdominal pain Some causes of pain need emergency medical treatment right away. These include appendicitis or a bowel blockage. Other problems can be treated with rest, fluids, or medicines. Your healthcare provider can give you specific instructions for treatment or self-care based on what is causing your pain. If you have vomiting or diarrhea, sip water or other clear fluids. When you are ready to eat solid foods again, start with small amounts of quih-ni-fsixsd, low- fat foods. These include apple sauce, toast, or crackers. When to get medical care Call 911 or go to the hospital right away if you: Can t pass stool and are vomiting Are vomiting blood or have bloody diarrhea or black, tarry diarrhea Have chest, neck, or shoulder pain Feel like you might pass out Have pain in your shoulder blades with nausea Have sudden, severe belly pain Have new, severe pain unlike any you have felt before Have a belly that is rigid, hard, and hurts to touch Call your healthcare provider if you have: Pain for more than 5 days Bloating for more than 2 days Diarrhea for more than 5 days A fever of 100.4 F (38 C) or higher, or as directed by your healthcare provider Pain that gets worse Weight loss for no reason Continued lack of appetite Blood in your stool How to prevent abdominal pain Here are some tips to help prevent abdominal pain: Eat smaller amounts of food at each meal. Don't eat greasy, fried, or other high-fat foods. Don't eat foods that give you gas. Exercise regularly. Drink plenty of fluids. To help prevent GERD symptoms: Quit smoking. Reduce alcohol and foods that increase stomach acid. Don't use aspirin or ywqs-tct-axjoxgr pain and fever medicines, if possible. This includes nonsteroidal anti-inflammatory drugs (NSAIDs). Lose excess weight. Finish eating at least 2 hours before you go to bed or lie down. Raise the head of your bed. [id number] [employer]. [address] [place] [address], [place] [address]. All rights reserved. This information is not intended as a substitute for professional medical care. Always follow yourhealthcare professional's instructions. Gastroparesis Gastroparesis means that food and fluids move too slowly out of the stomach into the duodenum. Gastroparesis (also called delayed gastric emptying) happens when the stomach takes longer than normal to empty of food. This is due to a problem with motility (the movement of the muscles in the digestive tract). For many people, gastroparesis is a lifelong condition. But treatment can help relieve symptoms and prevent complications. Read on to learn more about gastroparesis and how it can be managed. How gastroparesis develops With normal motility, signals from nerves tell the stomach muscles when to contract. These muscles move food from the stomach into the duodenum (the first part of the small bowel). With gastroparesis, the nerves or muscles are damaged. This causes motility to slow down or stop completely. As a result, food cannot move from the stomach properly. This delayed emptying can cause nausea, vomiting, and other symptoms. Malnutrition can result. Bezoars (hardened lumps of food) can form in the stomach and cause other complications as well. Causes of gastroparesis Gastroparesis can be caused by any of the following: Diabetes Surgery involving any of the digestive organs, such as the stomach and bowels Certain medicines, such as strong pain medicines (narcotics) Certain conditions, such as systemic scleroderma, Parkinson disease, and thyroid disease After a viral illness In many cases, the cause of gastroparesis cannot be found. Signs and symptoms of gastroparesis These can include: Nausea and vomiting Feeling full quickly when eating Belly pain Heartburn Belly bloating Weight loss Loss of appetite High and low blood sugar levels (in people with diabetes) Diagnosing gastroparesis Your healthcare provider will ask about your symptoms and health history. You ll also be examined. In addition, blood tests and X-rays are often done to check your health and rule out other problems.To confirm the problem, you may need other tests as well. These can include: Upper endoscopy. This is done to see inside the stomach and duodenum. For the test, an endoscope isused. This is a thin, flexible tube with a tiny camera on the end. It s inserted through the mouth and down into the stomach and duodenum. Upper gastrointestinal (GI) series. This is done to take X-rays of the upper GI tract from the mouth to the small bowel. For the test, a substance called barium is used. The barium coats the upper GItract so that it will show up clearly on X-rays. Gastric emptying scan. This is done to measure how quickly food leaves the stomach. For the test, ameal containing a harmless radioactive substance (tracer) is eaten. Then scans of the stomach are done. The tracer shows up clearly on the scans and shows the movement of the food through the stomach. Antroduodenal manometry. This test gives pressure measurements of the stomach and small intestine to check how the contractions are working. Newer tests. These are being created and include breath tests and wireless capsule studies and wireless motility capsule of the entire intestinal tract Treating gastroparesis The goal of treatment is to help you manage your condition. Treatment may include one or more of the following: Dietary changes. You may need to make changes to your eating habits and daily diet. For instance, your healthcare provider may instruct you to eat small meals throughout the day. Doing this can keep you from feeling full too quickly. You may be placed on a liquid or soft diet. This means you ll eatliquid foods or foods that are mashed or put through a special agent in charge. In addition, you may need to avoid foods high in fats and fiber. These can slow digestion. For more help with your diet, your healthcare provider can refer you to a dietitian. In severe cases, you may need a feeding tube. This sends liquid food or medicine directly to your small bowel, bypassing the stomach. Treating diabetes. If you are diabetic, it is important to control your blood sugar. High sugar levels worsen gastroparesis. Medicines. These can help manage symptoms, such as nausea and vomiting. They can also improve motility. Each medicine has specific risks and side effects. Your doctor can tell you more about any medicine that is prescribed for you. Narcotic pain relievers and certain other medications should be stopped if they are contributing toyour gastroparesis Surgery. You may need to have a tube surgically inserted into the stomach. The tube removes excess air and fluid. This can relieve severe symptoms of nausea and vomiting. In rare cases, other surgerymay be needed on the stomach or small bowel. This is to create a new passageway for food to be emptied from the stomach. Gastric electrical stimulation. This treatment is done less often and may not be available. Your healthcare provider can tell you more about this treatment if it is a choice for you. Diabetes and gastroparesis If you have diabetes, gastroparesis can make it harder to manage your blood sugar level. You ll need to take extra steps in your treatment to prevent complications. Work with your healthcare providerto learn what you can do to protect your health. For more information, contact the [place] [employer], www.diabetes.org. Long-term concerns With treatment, most people can manage their symptoms and maintain their usual routines. If your symptoms are moderate to severe, you may need to see your healthcare provider more often for checkups.Also, other treatments will likely be needed. [id number] [employer]. [address] [place] [address]. All rights reserved. This information is not intended as a substitute for professional medical care. Always follow yourhealthcare professional's instructions. Additional Information VACCINATE! IT SAVES LIVES! Members of the community who have not yet received the COVID-19 vaccine and would like to receive it can visit one of [facility] vaccine clinics. There are many vaccine clinic locations within the [facility]. For locations and available times, please visit www.[email or web address].[place].gov/. It is important to note that some COVID mobile vaccine clinics are held outdoors and may be canceled in rainy or stormy conditions. To learn more about pediatric vaccinations (ages 5-11), we invite you to visit the [facility] webpage. [email or web address]/[email or web address] stions.htmlTo learn more about the COVID-19 vaccine, we invite you to visit the CDC website for a list of frequently asked questions. https://www.cdc.gov/coronavirus/2019-ncov/vaccines/faq.html [facility] Patient Portal Access Instructions: Stay connected with your healthcare team and access your personal medical information anytime with the [facility] Patient Portal. If you would like a full copy of your medical records please contact the [facility] Medical Records Department Thursday through Thursday between 8a.m. and 4:30p.m. Please follow the directions below to access the portal: 1.Access the email account you provided upon registration to the [facility].2.Look for an invitation email from [facility].3.Open the email and access the invitation link: Accept Invitation to [employer]4.Fill in the required goel to create your account. Sign into [email or web address] with your username and password that you created in the above steps to stay up to date. You can then view a summary of results, a summary of your visits, and the ability to download your summaries to your computer or send the information securely to a physician. Remember that your healthcare information is confidential, so carefully consider who you will allow to register on the [facility] Patient Portal for access to your information. You can also access the [employer] Patient Portal on the [employer] jairo. Simply click on Health Records under [employer] and then click on the [facility] logo. HOW TO SAFELY DISPOSE OF PRESCRIPTION MEDICATIONS Please use one of the following methods to safely dispose of your unused medications. 1.Use a drug disposal kit: the drug disposal pouch allows you to safely discard your old and unuseddrugs. Ask your nurse to give you one when you are discharged.2.Visit a local take-back location: Many local pharmacies and police departments have programs that collect old and unwanted prescriptiondrugs. Call your local pharmacy or go to http://bit.[facility]/8Q8Ff8f to find one close to you.3.Make use of household items: Use cat litter or old coffee grounds to dispose medications if other options arenot available. Mix your drugs with these household products, seal them in an airtight container andthrow it into the garbage. Call [facility]: [phone] to be sure your drugs can be disposed of in this way. Some medicines may require a different approach.4.Never flush your medications down the toilet. IF YOU HAVE BEEN PRESCRIBED AN OPIOIDS FOR PAIN If you have been prescribed an opioid (such as hydrocodone, oxycodone or morphine), it is critical to understand the possible side effects and risks of opioid pain medications. Even when taken as directed, opioids can have several side effects including: Tolerance, meaning you might need to take more of a medication for the same pain relief. Nausea, vomiting and/or constipation. Sleepiness, dizziness, dry mouth, confusion, depression or itching. Physical dependence, meaning you have withdrawal symptoms when a medication is stopped ? this can develop within a few days. KNOW YOUR RESPONSIBILITIES It is important to know exactly how much and how often to take the opioid pain medications you are prescribed. Never take opioids in higher amounts or more often than prescribed. Do not combine opioids with alcohol or other drugs that cause drowsiness, such as benzodiazepines, also known as benzos,including diazepam and alprazolam, muscle relaxants or sleep aids. Never sell or share prescriptionopioids. This is illegal. Store opioids in a secure place and out of reach of others (including children, family, friends and visitors). The last page(s) of this document has been signed and retained as a CHART COPY Signatures Patient Education Materials Vomiting (Adult) Abdominal Pain Gastroparesis Medication Leaflets My discharge plan and instructions have been reviewed and explained to me and IBRIAN JASMINE E understand my current condition and have read and understand these discharge instructions. I have received a written copy of the plan/instructions. If I have questions, I am aware that I should contact my doctor. Patient/Watch Supervisor Signature: Date/Time: Relationship to Patient: Witness Name/Signature: Date/Time: [facility]11-12-2024 Note ORIGINAL EXAMINATION: CT OF THE ABDOMEN AND PELVIS WITH CONTRAST 07/19/2024 6:57 am TECHNIQUE: CT of the abdomen and pelvis was performed with the administration of intravenous contrast. Multiplanar reformatted images are provided for review. Automated exposure control, iterative reconstruction, and/or weight based adjustment of the mA/kV was utilized to reduce the radiation dose to as low as reasonably achievable. COMPARISON: September 14, 2021 HISTORY: ORDERING SYSTEM PROVIDED HISTORY: Reason for Exam: pain FINDINGS: No osseous abnormality identified. Liver, spleen, adrenal glands and pancreas are unremarkable. No kidney abnormality is visible. No adenopathy, free air or free fluid is visible. A tiny fat containing umbilical hernia is evident. The uterus is not readily apparent compatible with the stated history of partial hysterectomy. The ovaries and urinary bladder are grossly normal. No GI tract abnormality is visible. The appendix is normal. No additional contributory abnormality. IMPRESSION: No acute process. Interpreted by: Amado Hassan MD Preliminary Report By: Amado Hassan MD Electronically signed By Amado Hassan MD Dictated Date: 07/19/2024 8:12:46 AM Prelim Date: 07/19/2024 8:15:54 AM Sign Date: 07/19/2024 8:15:54 AM Ordering Provider: [facility]09-25-2023 Discharge summary Author Kevin San [facility] June 01, 2023 2:44pm Note Date/Time June 01, 2023 11:04am [facility] Medical Records Department [address] [place] [address] Emergency Department Summary 06/01/23 MR#: [id number] Acct: [id number] Name: ADDIS TORRES Rep #:[id number] : 2000 23 From: Kevin San MD PCP: Dr. Tj Willams MD Status: [facility] ER Location: ED HPI History of Present Illness Chief Complaint: General Illness Narrative Narrative: 23-year-old female past medical history of gastroparesis presents because she states she is out of her home medications. She ran out 3 weeks ago and was supposed to see her medical resident, Dr. Combs, today. Her boyfriend relates history that she began vomiting this morning at 5:00 and presenting withepigastric pain which she usually has when she has her gastroparesis. They state that she is on gabapentin, ondansetron, and a liquid. She denies any fevers or chills, but has been seen in the emergency department previously for her gastroparesis, abdominal pain, nausea and vomiting. [facility] Medical History Cyclic vomiting syndrome Depression Endometrial cancer Gastroparesis History of alcohol abuse Hypertension Non-smoker PCOS (polycystic ovarian syndrome) Retained ureteral stent Ureter injury Ureteral stricture, left Ureterolithiasis Home Medications acetaminophen 500 mg capsule 1,000 mg (2 x 500 mg) PO Q8H PRN PRN pain #60 caps 12/26/22 [Rx Last Taken Unknown] amitriptyline 10 mg tablet 10 mg PO QHS #30 tabs 01/14/23 [Rx Last Taken Unknown] gabapentin 100 mg capsule 100 mg PO TIDCM #60 caps 01/14/23 [Rx Last Taken Unknown] metoclopramide HCl 5 mg/5 mL oral solution 10 mg (10 mL) PO TIDAC #1,000 mL 01/14/23 [Rx Last Taken Unknown] ondansetron 4 mg disintegrating tablet 4 mg PO Q8H PRN nausea and vomiting #60 tabs 01/14/23 [Rx Last Taken Unknown] pantoprazole 40 mg tablet,delayed release 40 mg PO BID #60 tabs 01/14/23 [Rx Last Taken Unknown] gabapentin 100 mg capsule 100 mg PO TID #30 caps 06/01/23 [Rx Last Taken Unknown] metoclopramide HCl 5 mg/5 mL oral solution 10 mg (10 mL) PO TID #1,000 mL 06/01/23 [Rx Last Taken Unknown] ondansetron 4 mg disintegrating tablet 4 mg PO Q6H PRN nausea and vomiting #20 tabs 06/01/23 [Rx Last Taken Unknown] Allergy/AdvReac Type Severity Reaction Status Date / Time ceftriaxone [From Rocephin] Allergy Hives Verified 06/01/23 10:32 promethazine [From Phenergan] Allergy Vomiting Verified 06/01/23 10:32 Ringer's solution,lactated Allergy Hives Verified 06/01/23 10:32 Family History Father No problems noted. Mother Anxiety and depression GERD (gastroesophageal reflux disease) Surgical History History of hysterectomy for cancer History of renal stent Social History household members: family Smoking Status: Never smoker alcohol intake: former substance use type: marijuana and other details: No marijuana use in the last month ROS ROS ED ROS Narrative Constitutional: No fever, no chills. HEENT: No sore throat. No neck pain. No loss of vision. No rhinorrhea. Cardiovascular: No chest pain. No palpitations. No pedal edema. Respiratory: No cough, no shortness of breath. Abdominal: Positive abdominal pain, nausea, vomiting. No hematemesis. Genitourinary: No dysuria. No hematuria. Musculoskeletal: No myalgias. No arthralgias. Neurologic: No headaches. No dizziness. No lightheadedness. Skin: No rash. No change in color. Psychiatric: No depression. No anxiety. EXAM Physical Exam Narrative Exam Narrative: Afebrile. Vital signs noted. HEENT: Normocephalic. Atraumatic. PERRL, EOMI. Neck soft and supple. No pointtenderness or step off. Cardiovascular: Regular rate and rhythm. No murmurs, rubs, or gallops appreciated. Respiratory: No tachypnea. Lungs clear to auscultation bilaterally. Gastrointestinal: Abdomen soft, nontender, with decreased to normoactive bowel sounds. No rebound or guarding. Neurological: Awake. Alert. Nonfocal, nonlateralizing. Skin: No rash. Normal color. No pallor. Musculoskeletal: No pedal edema. Full range of motion extremities. Const Vital Signs: 06/01/23 10:32 Temperature 98.4 F Temperature Source Temporal Pulse Rate 78 Respiratory Rate 14 Blood Pressure 159/87 H Blood Pressure Mean 111 Pulse Ox 98 Oxygen Delivery Method Room Air MDM MDM MDM Narrative Medical decision making narrative: I reviewed the patient's prior records, she has been seen multiple times in the ED, with the last being in December. As she is out of her medications, she will begiven ondansetron and metoclopramide which in review is the liquid that I feel that she had been prescribed which should help with her abdominal pain and gastroparesis. We will check her laboratory work to make sure she is not dehydrated as she states that she has been out of her medications for 3 weeks but was not having major problems until today, but did have nausea and vomiting in the past. Additionally, I had ordered serum test, but in her surgical history, she has listed history of hysterectomy secondary to carcinoma. Initially, I did not feel that she required any imaging of her abdomen. I reviewed her laboratory work from today which is slightly elevated white countof 12.5 which I think may be demargination from her vomiting, hemoglobin normal at 13.1. Platelet count normal at 284. CMP shows normal sodium of 136 with potassium 3.5, BUN normal at 10, creatinine 1.02, glucose appropriately elevatedat 152 with a normal anion gap of 9, AST low at 13 and ALT normal at 27 with a normal alk phos of 65. Lipase is normal at 25. After initial doses of her medication of ondansetron and metoclopramide intravenously, she states she is still vomiting and having abdominal pain. I have reviewed her prior records, and 1 time she had been given fentanyl twice during the same visit, but then wasadmitted. Currently, I do not feel that narcotic pain medication is required. Since she was still having vomiting, in order to rule out obstruction CT of the abdomen and pelvis was obtained with IV contrast. There is no evidence of bowelobstruction. Appendix was visualized and is normal. No reason for her continued nausea and vomiting, or not verifiable abdominal pain. Although she states that she does not have cyclic vomiting syndrome, it is listed as a problem in her problem list. She was administered another dose of ondansetron, and Pepcid ordered along with Ativan. When I told her of her negative CT results, she states she felt the same. Once again I do not feel narcotic pain medication is indicated, and I did offer her observation for her continued nausea and vomiting but she declined. She would like to go home and Itold her I would write her prescriptions for her Reglan, gabapentin which she takes 100 mg 3 times a day, and for ondansetron for the next week, but she was told further prescriptions should come from her medical resident who writes them for her usually, Dr. Combs. I feel she be discharged safely home with follow-up. Return instructions to the emergency department were reviewed. Disposition is discharged home in stable condition. History & Record Review Discussion w/independent historian: Patient and Significant other Additional record(s) reviewed:: Prior ED visit and Prior labs Lab Data Attestation: I reviewed the patient's lab results. Labs: Laboratory Results - last 24 hr 06/01/23 11:45 WBC 12.5 H RBC 4.90 Hgb 13.1 Hct 40.4 MCV 82.4 MCH 26.7 L MCHC 32.4 RDW Std Deviation 38.5 RDW Coeff of Roz 13.0 Plt Count 284 MPV 9.1 Immature Gran % (Auto) 0.300 Neut % (Auto) 90.6 H Lymph % (Auto) 6.7 L [place] % (Auto) 2.1 Eos % (Auto) 0.1 Baso % (Auto) 0.2 Absolute Neuts (auto) 11.3 H Absolute Lymphs (auto) 0.83 Nucleated RBC % 0 Sodium 136 Potassium 3.5 Chloride 106 Carbon Dioxide 21.0 Anion Gap 9 BUN 10 Creatinine 1.02 Est GFR (MDRD) Af Amer 86 Est GFR (MDRD) Non-Af 71 BUN/Creatinine Ratio 9.8 L Glucose 152 H Calcium 9.3 Total Bilirubin 0.30 AST 13 L ALT 27 Alkaline Phosphatase 65 Total Protein 8.6 H Albumin 4.1 Globulin 4.5 H Albumin/Globulin Ratio 0.9 Lipase 25 Radiography Diagnostic Testing: Clinical Impression(s) from Imaging Studies Abdomen/Pelvis CT 06/01/23 13:02 IMPRESSION: Status post hysterectomy. Mildly enlarged ovaries with multiple small follicles. Electronically Signed: Pardeep Wetzel MD at 14:22 EDT , Discharge Plan Triage Chief Complaint: General Illness ED Provider: Kevin San Dx/Rx/DC Orders Clinical Impression: Gastroparesis, Nausea and vomiting, Abdominal pain Instructions: Gastroparesis, ED Abdominal Pain Unkn Cause Fem, ED Vomiting (Adult) Prescriptions: New ondansetron 4 mg tablet,disintegrating 4 mg PO Q6H PRN (Reason: nausea and vomiting) Qty: 20 0RF gabapentin 100 mg capsule 100 mg PO TID Qty: 30 0RF metoclopramide HCl 5 mg/5 mL solution 10 mg PO TID Qty: 1000 0RF No Action amitriptyline 10 mg tablet 10 mg PO QHS Qty: 30 11RF gabapentin 100 mg capsule 100 mg PO TIDCM Qty: 60 11RF metoclopramide HCl 5 mg/5 mL solution 10 mg PO TIDAC Qty: 1000 2RF pantoprazole 40 mg tablet,delayed release (DR/EC) 40 mg PO BID Qty: 60 3RF ondansetron 4 mg tablet,disintegrating 4 mg PO Q8H PRN (Reason: nausea and vomiting) Qty: 60 3RF acetaminophen 500 mg capsule 1,000 mg PO Q8H PRN PRN (Reason: pain) Qty: 60 0RF Primary Care Provider: Tj Willams Referrals: Tj Willams MD [Primary Care Provider] - Corine Combs DO [Med Staff - Active Staff] - As soon as possible Activity Restrictions/Additional Instructions: Call Dr. Combs for further refills of your medications. Reschedule your appointment that you had with him today. Disposition Disposition: Home, Self Care What to do if you have Problems For any increased pain, shortness of breath, bleeding, nausea or vomiting, chestpain, or any unexpected problems, contact your Primary Care Provider. Call [facility] ([phone]) or report to the closest Emergency Room. Call 911 if necessary. 06/01/23 [id number] <Electronically signed by Kevin San MD> Cosigner Signature (if applicable): CC: Dr. Tj Willams MD ~ Signed [facility] Work Phone: [phone] 457-566406-22-2023 Hospital Discharge instructions Patient Education 02/26/2023 16:16:33 Animal Bite (General) Animal Bite (General) An animal bite can cause a wound deep enough to break the skin. In such cases, the wound is cleanedand then sometimes closed. If the wound is closed, it may not be closed completely. This is so thatfluid can drain and prevent the wound from becoming infected. In addition to wound care, a tetanus shot may be given, if needed. Home care Care for the wound as directed. If a dressing was applied to the wound, be sure to change it as directed. Wash your hands well with soap and warm water before and after caring for the wound. This helps lower the risk of infection. If the wound bleeds, place a clean, soft cloth on the wound. Then firmly apply pressure until the bleeding stops. This may take up to 5 minutes. Do not release the pressure and look at the wound during this time. Most skin wounds heal within 10 days. But an infection can occur even with proper treatment. So be sure to watch the wound for signs of infection (see below). Check the wound as often as directed by your healthcare provider. Antibiotics may be prescribed. These help prevent or treat infection. If you re given antibiotics, take them as directed. Also be sure to complete the medicines. Rabies prevention Rabies is a virus that can be carried in certain animals. These can include domestic animals such as dogs and cats. Wild animals such as skunks, raccoons, foxes, and bats can also carry rabies. Pets fully vaccinated against rabies (2 shots) are at very low risk of infection. But because human rabies is almost always fatal, any biting pet should be confined for 10 days as an extra precaution. In general, if there is a risk for rabies, the following steps may need to be taken: If someone s pet dog or cat has bitten you, it should be kept in a secure area for the next 10 daysto watch for signs of illness. (If the pet servicer travel trailers won t allow this, contact your local animal control center.) If the dog or cat becomes ill or dies during that time, contact your local animal controlcenter at once so the animal may be tested for rabies. If the pet stays healthy for the next 10 days, there is no danger of rabies in the animal or you. If a stray pet bit you, contact your local animal control center. They can give information on capture, quarantine, and animal rabies testing. If you can t find the animal that bit you in the next 2 days, and if rabies exists in your region, you may need to receive the rabies vaccine series. Call your healthcare provider right away. Or return to the emergency department promptly. All animal bites should be reported to the local animal control center. If you were not given a form to fill out, you can report this yourself. Follow-up care Follow up with your healthcare provider, or as directed. When to seek medical advice Call your healthcare provider right away if any of these occur: Signs of infection: oSpreading redness or warmth from the wound oIncreased pain or swelling oFever of 100.4 F (38 C) or higher, or as directed by your healthcare provider oColored fluid or pus draining from the wound Signs of rabies infection: oHeadache oConfusion oStrange behavior oIncreased salivating and drooling oSeizure Decreased ability to move any body part near the bite area Bleeding that can't be stopped after 5 minutes of firm pressure 4217-0881 [employer]. [address] [place] [address]. All rights reserved. This information is not intended as a substitute for professional medical care. Always follow yourhealthcare professional's instructions. Follow Up Care 02/26/2023 14:43:59 With:MD BERRY AUGUSTE Address: [address] [place] [address] [place] [phone] When:2-4 days Comments:Return to ED if symptoms worsen [facility] 06-22-2023 Note Discharge Instructions Thank you for allowing [facility] to assist you with your healthcare needs. The following is importantdischarge information regarding your hospital visit. Diagnosis from Today's Visit Cat bite Cat bite What to Do Next Instructions from Your Care Team No qualifying data available. Post Acute Orders No qualifying data available. You Need to Schedule the Following Appointments Follow Up with MD BERRY AUGUSTE When Within 2-4 days Why: Return to ED if symptoms worsen Where: [address] [place] [address] [address] [place] [address]- [phone] Allergies Lactated Ringers Phenergan Rocephin Medications Please ask your primary doctor or pharmacist before taking any other medication not listed, including over the counter drugs, herbal medications, vitamins and or supplements as they may interact withyour home medications. What How Much When Why Instructions Last Dose New amoxicillin-clavulanate (amoxicillin-clavulanate 875 mg-125 mg oral tablet) 1 tab(s) by mouth Every 12 hours Cat bite Duration: 10 Days Printed Prescription Unchanged docusate (Colace 100 mg oral capsule) 1 cap by mouth Two (2) times a day as needed for as needed for constipation Flank pain Unchanged ondansetron (Zofran ODT use ondansetron oral tablet, disintegrating ) 4 Milligram by mouth Every 8 hours Abdominal pain Duration: 7 Days Unchanged pantoprazole (pantoprazole 40 mg oral enteric coated tablet) 1 tab(s) by mouth Once a day Unchanged tamsulosin (tamsulosin 0.4 mg oral capsule) 1 cap by mouth Once a day Please take this list to your next doctor s visit. Bring all medications you take, including over the counter medications, herbals and other supplements with you to your doctor s visit. Patients and families are reminded to discard old lists and to update any records with all medication providers or retail pharmacies. Education Materials Animal Bite (General) An animal bite can cause a wound deep enough to break the skin. In such cases, the wound is cleanedand then sometimes closed. If the wound is closed, it may not be closed completely. This is so thatfluid can drain and prevent the wound from becoming infected. In addition to wound care, a tetanus shot may be given, if needed. Home care Care for the wound as directed. If a dressing was applied to the wound, be sure to change it as directed. Wash your hands well with soap and warm water before and after caring for the wound. This helps lower the risk of infection. If the wound bleeds, place a clean, soft cloth on the wound. Then firmly apply pressure until the bleeding stops. This may take up to 5 minutes. Do not release the pressure and look at the wound during this time. Most skin wounds heal within 10 days. But an infection can occur even with proper treatment. So be sure to watch the wound for signs of infection (see below). Check the wound as often as directed by your healthcare provider. Antibiotics may be prescribed. These help prevent or treat infection. If you re given antibiotics, take them as directed. Also be sure to complete the medicines. Rabies prevention Rabies is a virus that can be carried in certain animals. These can include domestic animals such as dogs and cats. Wild animals such as skunks, raccoons, foxes, and bats can also carry rabies. Pets fully vaccinated against rabies (2 shots) are at very low risk of infection. But because human rabies is almost always fatal, any biting pet should be confined for 10 days as an extra precaution. In general, if there is a risk for rabies, the following steps may need to be taken: If someone s pet dog or cat has bitten you, it should be kept in a secure area for the next 10 daysto watch for signs of illness. (If the pet servicer travel trailers won t allow this, contact your local animal control center.) If the dog or cat becomes ill or dies during that time, contact your local animal controlcenter at once so the animal may be tested for rabies. If the pet stays healthy for the next 10 days, there is no danger of rabies in the animal or you. If a stray pet bit you, contact your local animal control center. They can give information on capture, quarantine, and animal rabies testing. If you can t find the animal that bit you in the next 2 days, and if rabies exists in your region, you may need to receive the rabies vaccine series. Call your healthcare provider right away. Or return to the emergency department promptly. All animal bites should be reported to the local animal control center. If you were not given a form to fill out, you can report this yourself. Follow-up care Follow up with your healthcare provider, or as directed. When to seek medical advice Call your healthcare provider right away if any of these occur: Signs of infection: oSpreading redness or warmth from the wound oIncreased pain or swelling oFever of 100.4 F (38 C) or higher, or as directed by your healthcare provider oColored fluid or pus draining from the wound Signs of rabies infection: oHeadache oConfusion oStrange behavior oIncreased salivating and drooling oSeizure Decreased ability to move any body part near the bite area Bleeding that can't be stopped after 5 minutes of firm pressure [id number] [employer]. [address] [place] [address]. All rights reserved. This information is not intended as a substitute for professional medical care. Always follow yourhealthcare professional's instructions. Additional Information VACCINATE! IT SAVES LIVES! Members of the community who have not yet received the COVID-19 vaccine and would like to receive it can visit one of [facility] vaccine clinics. There are many vaccine clinic locations within the [facility]. For locations and available times, please visit www.gettheshot.coronavirus.[place].gov/. It is important to note that some COVID mobile vaccine clinics are held outdoors and may be canceled in rainy or stormy conditions. To learn more about pediatric vaccinations (ages 5-11), we invite you to visit the [facility] webpage. https://www.[facility].org/pages/2599-Ldspm-Dlidxirlsbu-Cxfmkgvssp-Lohjp-Cln stions.htmlTo learn more about the COVID-19 vaccine, we invite you to visit the CDC website for a list of frequently asked questions. https://www.cdc.gov/coronavirus/2019-ncov/vaccines/faq.html [facility] Patient Portal Access Instructions: Stay connected with your healthcare team and access your personal medical information anytime with the [employer] Patient Portal. If you would like a full copy of your medical records please contact the [facility] Medical Records Department Thursday through Thursday between 8a.m. and 4:30p.m. Please follow the directions below to access the portal: 1.Access the email account you provided upon registration to the [facility].2.Look for an invitation email from [facility].3.Open the email and access the invitation link: Accept Invitation to [employer]4.Fill in the required goel to create your account. Sign into [email or web address] with your username and password that you created in the above steps to stay up to date. You can then view a summary of results, a summary of your visits, and the ability to download your summaries to your computer or send the information securely to a physician. Remember that your healthcare information is confidential, so carefully consider who you will allow to register on the [employer] Patient Portal for access to your information. You can also access the [employer] Patient Portal on the [employer] jairo. Simply click on Health Records under HealthData and then click on the [employer] logo. HOW TO SAFELY DISPOSE OF PRESCRIPTION MEDICATIONS Please use one of the following methods to safely dispose of your unused medications. 1.Use a drug disposal kit: the drug disposal pouch allows you to safely discard your old and unuseddrugs. Ask your nurse to give you one when you are discharged.2.Visit a local take-back location: Many local pharmacies and police departments have programs that collect old and unwanted prescriptiondrugs. Call your local pharmacy or go to http://bit.ly/3T3Dg1i to find one close to you.3.Make use of household items: Use cat litter or old coffee grounds to dispose medications if other options arenot available. Mix your drugs with these household products, seal them in an airtight container andthrow it into the garbage. Call [facility]: [phone] to be sure your drugs can be disposed of in this way. Some medicines may require a different approach.4.Never flush your medications down the toilet. IF YOU HAVE BEEN PRESCRIBED AN OPIOIDS FOR PAIN If you have been prescribed an opioid (such as hydrocodone, oxycodone or morphine), it is critical to understand the possible side effects and risks of opioid pain medications. Even when taken as directed, opioids can have several side effects including: Tolerance, meaning you might need to take more of a medication for the same pain relief. Nausea, vomiting and/or constipation. Sleepiness, dizziness, dry mouth, confusion, depression or itching. Physical dependence, meaning you have withdrawal symptoms when a medication is stopped ? this can develop within a few days. KNOW YOUR RESPONSIBILITIES It is important to know exactly how much and how often to take the opioid pain medications you are prescribed. Never take opioids in higher amounts or more often than prescribed. Do not combine opioids with alcohol or other drugs that cause drowsiness, such as benzodiazepines, also known as benzos,including diazepam and alprazolam, muscle relaxants or sleep aids. Never sell or share prescriptionopioids. This is illegal. Store opioids in a secure place and out of reach of others (including children, family, friends and visitors). The last page(s) of this document has been signed and retained as a CHART [employer] Patient Education Materials Animal Bite (General) Medication Leaflets My discharge plan and instructions have been reviewed and explained to me and IBRIAN JASMINE E understand my current condition and have read and understand these discharge instructions. I have received a written copy of the plan/instructions. If I have questions, I am aware that I should contact my doctor. Patient/Watch Supervisor Signature: Date/Time: Relationship to Patient: Witness Name/Signature: Date/Time: [facility]06-22-2023 Note ORIGINAL EXAMINATION: THREE XRAY VIEWS OF THE LEFT THUMB 02/26/2023 3:38 pm COMPARISON: None. HISTORY: ORDERING SYSTEM PROVIDED HISTORY: Reason for Exam: pain Cat bite 2 days ago, bruising and swelling no proximal thumb FINDINGS: No acute fracture or dislocation. Small focal soft tissue swelling over the radial surface of the 1st metacarpal head region is without subcutaneous emphysema. Included Articulations are maintained. IMPRESSION: No acute bony abnormality. Small external injury near the radial surface of the 1st metacarpal head region. Interpreted by: Rafael Bean DO Preliminary Report By: Rafael Bean DO Electronically signed By Rafael Bean DO Dictated Date: 02/26/2023 3:45:30 PM Prelim Date: 02/26/2023 3:47:36 PM Sign Date: 02/26/2023 3:47:36 PM Ordering Provider: [facility]06-22-2023 Note ORIGINAL EXAMINATION: THREE XRAY VIEWS OF THE LEFT THUMB 02/26/2023 3:38 pm COMPARISON: None. HISTORY: ORDERING SYSTEM PROVIDED HISTORY: Reason for Exam: pain Cat bite 2 days ago, bruising and swelling no proximal thumb FINDINGS: No acute fracture or dislocation. Small focal soft tissue swelling over the radial surface of the 1st metacarpal head region is without subcutaneous emphysema. Included Articulations are maintained. IMPRESSION: No acute bony abnormality. Small external injury near the radial surface of the 1st metacarpal head region. Interpreted by: Rafael Bean DO Preliminary Report By: Rafael Bean DO Electronically signed By Rafael Bean DO Dictated Date: 02/26/2023 3:45:30 PM Prelim Date: 02/26/2023 3:47:36 PM Sign Date: 02/26/2023 3:47:36 PM Ordering Provider: [facility]04-21-[address] Marquez [facility] December 26, 2022 10:48am Note Date/Time December 26, 2022 7:2 2am [facility] Medical Records Department [address] [place] [address] Progress Note - Hospitalist 12/26/2220 MR#: [id number] Acct: [id number] Name: ADDIS TORRES Rep #:[id number] : 2000 22 From: Josué Marquez DO PCP: Dr. Tj Willams MD Status: ADM IN [facility] Reason for Visit Reason for Visit: Diagnoses Dehydration (12/24/22) Unspecified abdominal pain (12/24/22) Cyclical vomiting syndrome unrelated to migraine (12/24/22) Nausea with vomiting, unspecified (12/24/22) Subjective Subjective Ate some last night and was able to keep it down, but did have abdominal pain that lasted 20 minutes. Today, nursing informed me patient had lunch (did not eat breakfast as she was not hungry) and felt well. Objective Data Objective Data Vital Signs: Vital Signs Temp Pulse Resp BP Pulse Ox O2 Del Method 36.8 C 86 16 134/88 H 100 Room Air 12/26/22 06:15 12/26/22 06:15 12/26/22 06:15 12/26/22 06:15 12/26/22 06:15 12/26/22 06:15 Oxygen Delivery Method Room Air Weight: 97.2 kg Body Mass Index (BMI) 31.6 Intake & Output: Intake and Output for Last 24 Hours 12/24/22 12/25/22 12/26/22 23:59 23:59 23:59 Intake Total 3630.5 / 3630.5 1790.00 / 1790.00 1000 / 1000 Output Total 0 / 0 Balance 3630.5 / 3630.5 1790.00 / 1790.00 1000 / 1000 Lab / Micro Data Result Diagrams: 12/24/22 06:10 12/25/22 05:35 Labs: Laboratory Results - last 24 hr 12/23/22 15:50: LEEANN-1 Antibody <0.2, SS-A/Ro IgG Antibody < 0.2, SS-B/La IgG Antibody < 0.2, Sm (Rogers) Antibody <0.2, PARISH VISITOR Antibody <0.2, Scl-70 Scleroderma Ab <0.2, Double Strand DNA Ab 1, Centromere B Antibody <0.2 12/23/22 15:50: Total Protein (PEP) 7.1, Globulin 3.3, IgG Not Reportable, IgG Total 1034, IgG1 509, IgG2 455, IgG3 25, IgG4 32, IgA 178, IgM 213, Immunofixation Screen Comment, Albumin (WERNER) 3.8, Albumin/Globulin (WERNER) 1.2, Mwmga-1-Nehkoglyh WERNER 0.3, Rzera-3-Wzdamhhyj WERNER 0.8, Beta-Globulins (WERNER) 1.1, Gamma Globulins (WERNER) 1.1, WERNER M-Kodi , WERNER Comments Comment, c-ANCA Antibody <1:20, Atypical p-ANCA <1:20, p- ANCA Antibody <1:20 Radiography Diagnostic Testing: Radiology Impression Gastric Emptying Nuclear Medicine 12/24/22 16:59 IMPRESSION: 1. ABNORMAL 99m Tc sulfur colloid semi-solid phase (oatmeal) gastric emptying imaging examination. A. There is delayed semi-solid phase gastric emptying compared to normal controls with maintained first order kinetics throughout all components of the examination. (Jayro et al, J Nucl Med Tech 38: 186, 2010). Electronically Signed: Keegan Narvaez, at 11:57 EDT , Physical Exam Const alert and no apparent distress HEENT head/scalp atraumatic and moist oral mucous membranes Resp normal respiratory effort, no retractions, no use of accessory muscles and clearto auscultation bilaterally Cardio regular rate, regular rhythm, S1 normal heart sound and S2 normal heart sound GI normal to inspection, nondistended, normoactive bowel sounds, soft to palpation,non-tender and non-distended Assessment & Plan Assessment/Plan (1) Cyclical vomiting: PLAN: 3 admission this month UDS consistently positive for cannabinoids. Concerning for cannabinoid hyperemesis syndrome, though pt consistently denies this. States last use was 1 month ago. (significant other admits to him using) Pt states that she develops abdominal pain, then has N/V, only helped with pain medication. I advised no narcotics as this may exacerbate her abdominal pain. EGD shows erosive esophagitis. erythematous mucosa in cardia. Continue PPI GES abnormal. Low fat diet. Avoid fresh fruit and vegetables. Avoid carbonated beverages DW Friend, he recommended reglan. Follow up with GI as outpt. (2) Dehydration: PLAN: Dehydration. Secondary to #1 above. We will keep on D5 normal saline with 20 of potassium at 100 cc an hour. 12/26/22 1048 <Electronically signed by Josué Marquez DO> Cosigner Signature (if applicable): CC: ~ Signed [facility] Work Phone: 1(586) 260-770404-20-[address] Marquez [facility] December 25, 2022 2:41pm Note Date/Time December 25, 2022 7:3 2am [facility] Medical Records Department [address] [place] [address] Progress Note - Hospitalist 12/25/22729 MR#: [id number] Acct: [id number] Name: ADDIS TORRES Rep #:[id number] : 2000 22 From: Josué Marquez DO PCP: Dr. Tj Willams MD Status: ADM IN Location: [place] [address] Reason for Visit Reason for Visit: Diagnoses Dehydration (12/23/22) Unspecified abdominal pain (12/23/22) Cyclical vomiting syndrome unrelated to migraine (12/23/22) Nausea with vomiting, unspecified (12/23/22) Subjective Subjective No further nausea and vomiting. Still with some epigastric abdominal pain. Objective Data Objective Data Vital Signs: Vital Signs Temp Pulse Resp BP Pulse Ox O2 Del Method 36.9 C 101 H 18 135/93 H 98 Room Air 12/25/22 03:30 12/25/22 03:30 12/25/22 03:30 12/25/22 03:30 12/25/22 03:30 12/25/22 03:30 Oxygen Delivery Method Room Air Weight: 97.2 kg Body Mass Index (BMI) 31.6 Intake & Output: Intake and Output for Last 24 Hours 12/23/22 12/24/22 12/25/22 23:59 23:59 23:59 Intake Total 1110 / 1110 3630.5 / 3630.5 758.33 / 758.33 Output Total 0 / 0 Balance 1110 / 1110 3630.5 / 3630.5 758.33 / 758.33 Lab / Micro Data Result Diagrams: 12/24/22 06:10 12/25/22 05:35 Labs: Laboratory Results - last 24 hr 12/25/22 05:35: Sodium 135 L, Potassium 3.9, Chloride 109 H, Carbon Dioxide 21.0, Anion Gap 5, BUN 5 L, Creatinine 0.75, Estim Creat Clear Calc 122.96, Est GFR (MDRD) Af Amer 123, Est GFR (MDRD) Non-Af 102, BUN/Creatinine Ratio 6.6 L, Glucose 126 H, Calcium 9.3 Physical Exam Const alert and no apparent distress HEENT head/scalp atraumatic Resp normal respiratory effort and no retractions Cardio regular rate, regular rhythm, S1 normal heart sound and S2 normal heart sound GI normal to inspection, nondistended, normoactive bowel sounds GI Narrative: mild epigastric abdominal pain. Assessment & Plan Assessment/Plan (1) Cyclical vomiting: PLAN: 3 admission this month UDS consistently positive for cannabinoids. Concerning for cannabinoid hyperemesis syndrome, though pt consistently denies this. States last use was 1 month ago. (significant other admits to him using) Pt states that she develops abdominal pain, then has N/V, only helped with pain medication. I advised no narcotics as this may exacerbate her abdominal pain. EGD shows erosive esophagitis. erythematous mucosa in cardia. Continue PPI GES abnormal. Low fat diet. Avoid fresh fruit and vegetables. Avoid carbonated beverages (2) Dehydration: PLAN: Dehydration. Secondary to #1 above. We will keep on D5 normal saline with 20 of potassium at 100 cc an hour. 12/25/22 1441 <Electronically signed by Josué Marquez DO> Cosigner Signature (if applicable): CC: ~ Signed [facility] Work Phone: 1(190) 996-326504-20-2023 Progress note Author Corine Friend [facility] December 25, 2022 1:07pm Note Date/Time December 25, 2022 1:0 7pm [facility] Medical Records Department [address] [place] [address] Progress Note 12/25/22 1303 MR#: [id number] Acct: [id number] Name: ADDIS TORRES Rep #:[id number] : 2000 22 From: Corine Friend PCP: Dr. Tj Willams MD Status: ADM IN [facility] Subjective Subjective Patient underwent gastric emptying study and was determined to have gastroparesis. She is also collecting urine for pheochromocytoma Objective Data Objective Data Vital Signs: Vital Signs Temp Pulse Resp BP Pulse Ox O2 Del Method 98.3 F 109 H 18 156/92 H 94 Room Air 12/25/22 10:05 12/25/22 10:05 12/25/22 10:05 12/25/22 10:05 12/25/22 10:05 12/25/22 10:05 Oxygen Delivery Method Room Air Weight: 214 lb 4.629 oz Body Mass Index (BMI) 31.6 Intake & Output: Intake and Output for Last 24 Hours 12/23/22 12/24/22 12/25/22 23:59 23:59 23:59 Intake Total 1110 / 1110 3630.5 / 3630.5 1208.33 / 1208.33 Output Total 0 / 0 Balance 1110 / 1110 3630.5 / 3630.5 1208.33 / 1208.33 Lab / Micro Data Result Diagrams: 12/24/22 06:10 12/25/22 05:35 Labs: Laboratory Results - last 24 hr 12/25/22 05:35: Sodium 135 L, Potassium 3.9, Chloride 109 H, Carbon Dioxide 21.0, Anion Gap 5, BUN 5 L, Creatinine 0.75, Estim Creat Clear Calc 122.96, Est GFR (MDRD) Af Amer 123, Est GFR (MDRD) Non-Af 102, BUN/Creatinine Ratio 6.6 L, Glucose 126 H, Calcium 9.3 Radiography Diagnostic Testing: Radiology Impression Gastric Emptying Nuclear Medicine 12/24/22 16:59 IMPRESSION: 1. ABNORMAL 99m Tc sulfur colloid semi-solid phase (oatmeal) gastric emptying imaging examination. A. There is delayed semi-solid phase gastric emptying compared to normal controls with maintained first order kinetics throughout all components of the examination. (Jayro bustillos al, J Nucl Med Tech 38: 186, 2010). Electronically Signed: Keegan Narvaez, at 11:57 EDT , Physical Exam Const alert and no apparent distress HEENT head/scalp atraumatic Resp normal respiratory effort and no retractions Cardio regular rate, regular rhythm, S1 normal heart sound and S2 normal heart sound GI normal to inspection, nondistended, normoactive bowel sounds GI Narrative: mild epigastric abdominal pain. Assessment & Plan Assessment/Plan (1) Abdominal pain: (2) Nausea & vomiting: PLAN: Plan Patient is a 22-year-old lady with history of cyclical vomiting syndrome discharged from the hospital a day earlier following admission for nausea and vomiting and cystitis discharged on Cipro presented back to the emergency department with worsening abdominal pain in addition to nausea and vomiting presented with abdominal pain and intractable nausea vomiting. She underwent EGD and was discovered to have severe erosive esophagitis along with signs and symptoms of delayed gastric emptying due to a very distended stomach with CO2 inflation. 1.? Abdominal pain with intractable nausea vomiting ? Possibly secondary to gastroparesis. Recommend gabapentin 100 mg p.o. 3 timesdaily & amitriptyline 10 mg daily for neuropathic pain. Also tramadol can be given as needed for pain. Narcotics should be avoided. For delayed gastric emptying we will put her on scheduled Reglan therapy while in the hospital. Shewas explained risk and benefits of Reglan therapy including and not with standing tardive dyskinesia and no resting tremor 2. Recent acute cystitis With pansensitive E. coli patient discharged on floor quinolones. She has no dysuria at this time 3.? Dehydration ? Managed with IV fluid 4.? History of endometrial CA ? Currently stable 5.? DVT prophylaxis ? Low risk, encouraging ambulation 6. Cannabinoid use ? May be contributing to patient cyclical vomiting counseled on the need for cessation 7.work-up for autoimmune disease is pending. However she will have to do urine to test for diseases such as carcinoid, acute intermittent porphyria. . Charges/Coding Visit Charges Inpatient E&M: 60581 Subs Hosp L3 12/25/22 1307 <Electronically signed by Corine Friend DO> Corine Friend DO Cosigner Signature (if applicable): CC: ~ Signed [facility] Work Phone: 1(304) 285-517204-19-[address] Marquez [facility] December 24, 2022 3:09pm Note Date/Time December 24, 2022 8:0 3am [facility] Medical Records Department [address] [place] [address] Progress Note - Hospitalist 12/24/22 0757 MR#: [id number] Acct: [id number] Name: ADDIS TORRES Rep #:[id number] : 2000 22 From: Josué Marquez DO PCP: Dr. Tj Willams MD Status: ADM JAQUI Location: [address] Reason for Visit Reason for Visit: Diagnoses Dehydration (12/23/22) Cyclical vomiting syndrome unrelated to migraine (12/23/22) Subjective Subjective Gets epigastric abdominal pain that radiates to her left. Denies THC nor CBD use(last use was 1 month ago). Objective Data Objective Data Vital Signs: Vital Signs Temp Pulse Resp BP Pulse Ox O2 Del Method 36.9 C 98 16 137/89 H 99 Room Air 12/24/22 07:54 12/24/22 07:54 12/24/22 07:54 12/24/22 07:54 12/24/22 07:54 12/24/22 07:54 Oxygen Delivery Method Room Air Weight: 97.2 kg Body Mass Index (BMI) 31.6 Intake & Output: Intake and Output for Last 24 Hours 12/22/22 12/23/22 12/24/22 23:59 23:59 23:59 Intake Total 1110 / 1110 895 / 895 Balance 1110 / 1110 895 / 895 Lab / Micro Data Result Diagrams: 12/24/22 06:10 12/24/22 06:10 Labs: Laboratory Results - last 24 hr 12/23/22 11:45: WBC 12.5 H, RBC 4.94, Hgb 13.1, Hct 42.5, MCV 86.0, MCH 26.5 L, MCHC 30.8 L D, RDW Std Deviation 47.7 H, RDW Coeff of Roz 15.1 H, Plt Count 228,MPV 9.0, Immature Gran % (Auto) 0.300, Neut % (Auto) 82.6 H, Lymph % (Auto) 11.4L, [place] % (Auto) 4.4, Eos % (Auto) 1.0, Baso % (Auto) 0.3, Absolute Neuts (auto)10.3 H, Absolute Lymphs (auto) 1.43, Nucleated RBC % 0 12/23/22 11:45: Lactic Acid Cancelled 12/23/22 11:55: Sodium Cancelled, Potassium Cancelled, Chloride Cancelled, Carbon Dioxide Cancelled, Anion Gap Cancelled, BUN Cancelled, Creatinine Cancelled, Estim Creat Clear Calc Cancelled, Est GFR (MDRD) Af Amer Cancelled, Est GFR (MDRD) Non-Af Cancelled, BUN/Creatinine Ratio Cancelled, Glucose Cancelled, Calcium Cancelled, Total Bilirubin Cancelled, AST Cancelled, ALT Cancelled, Alkaline Phosphatase Cancelled, Total Protein Cancelled, Albumin Cancelled, Globulin Cancelled, Albumin/Globulin Ratio Cancelled, Lipase Cancelled 12/23/22 12:50: Sodium 140, Potassium 3.8, Chloride 111 H, Carbon Dioxide 23.0, Anion Gap 6, BUN 7, Creatinine 0.87, Estim Creat Clear Calc 106.00, Est GFR (MDRD) Af Amer 104, Est GFR (MDRD) Non-Af 86, BUN/Creatinine Ratio 8.1 L, Glucose 100, Calcium 8.8, Total Bilirubin 0.50, AST 21, ALT 23, Alkaline Phosphatase 53, Total Protein 7.3, Albumin 3.9, Globulin 3.4, Albumin/Globulin Ratio 1.1, Lipase 28 12/23/22 12:50: Lactic Acid 1.9 12/23/22 12:50: ESR 15 12/23/22 15:50: Lactate Dehydrogenase 171, C-React Prot Ext Range < 2.90 12/23/22 15:50: Urine 5-HIAA 24 Hour Cancelled, Urine 5-HIAA, Quant Cancelled 12/23/22 15:50: Insulin Level 23.1 12/23/22 15:50: Ammonia < 10.0 L 12/24/22 06:10: WBC 9.3, RBC 4.21, Hgb 11.4 L, Hct 35.6 L, MCV 84.6, MCH 27.1, MCHC 32.0, RDW Std Deviation 46.7 H, RDW Coeff of Roz 15.3 H, Plt Count 221, MPV9.0, Immature Gran % (Auto) 0.200, Neut % (Auto) 66.9, Lymph % (Auto) 24.3, [place]% (Auto) 8.0, Eos % (Auto) 0.4, Baso % (Auto) 0.2, Absolute Neuts (auto) 6.2, Absolute Lymphs (auto) 2.25, Nucleated RBC % 0 12/24/22 06:10: Sodium 141, Potassium 3.5, Chloride 112 H, Carbon Dioxide 24.0, Anion Gap 5, BUN 3 L, Creatinine 0.79, Estim Creat Clear Calc 116.73, Est GFR (MDRD) Af Amer 116, Est GFR (MDRD) Non-Af 96, BUN/Creatinine Ratio 3.8 L, Glucose 111 H, Calcium 8.4 L, Phosphorus 2.9, Magnesium 2.1, Total Bilirubin 0.40, AST 7 L, ALT 20, Alkaline Phosphatase 45, Total Protein 6.7, Albumin 3.5, Globulin 3.2, Albumin/Globulin Ratio 1.1 Radiography Diagnostic Testing: Radiology Impression Liver Ultrasound 12/23/22 16:08 IMPRESSION: Normal right upper quadrant ultrasound examination. Electronically Signed: Esequiel Cisneros DO at 16:59 EDT Reading Location ID and State: [address] [place] [address] Tel [phone], Service support , Physical Exam Const alert and no apparent distress Resp normal respiratory effort, no retractions, no use of accessory muscles and clearto auscultation bilaterally Cardio regular rate, regular rhythm, S1 normal heart sound and S2 normal heart sound GI normal to inspection, nondistended, normoactive bowel sounds GI Narrative: reproducible anterior abdominal pain, but appeared very superficial and out of proportion to exam. Assessment & Plan Assessment/Plan (1) Cyclical vomiting: PLAN: 3 admission this month UDS consistently positive for cannabinoids. Concerning for cannabinoid hyperemesis syndrome, though pt consistently denies this. States last use was 1 month ago. (significant other admits to him using) Pt states that she develops abdominal pain, then has N/V, only helped with pain medication. I advised no narcotics as this may exacerbate her abdominal pain. EGD shows erosive esophagitis. erythematous mucosa in cardia. Continue PPI Full liquid diet. (2) Dehydration: PLAN: Dehydration. Secondary to #1 above. We will keep on D5 normal saline with 20 of potassium at 100 cc an hour. Charges/Coding Visit Charges Inpatient E&M: 65640 Subs Hosp L2 12/24/22 1509 <Electronically signed by Josué Marquez DO> Cosigner Signature (if applicable): CC: ~ Signed [facility] Work Phone: [phone]) 938-574104-19-2023 Consult note Author Corine Friend [facility] December 24, 2022 12:41pm Note Date/Time December 24, 2022 12: 41pm [facility] Medical Records Department [address] [place] [address] Consultation - GI 12/23/22 2300 MR#: [id number] Acct: [id number] Name: ADDIS TORRES Rep #:[id number] : 2000 22 From: Corine Combs DO PCP: Dr. Tj Willams MD Status: ADM JAQUI Location: [place] [address] HPI Consult Data Date of Consult: 12/23/22 HPI Narrative Reason for Consultation: Abdominal pain with nausea vomiting HPI Narrative: ADDIS TORRES, is a 22 F who presents back to the ED with worsening abdominal pain. She initially presented 12/10/2022 for severe left-sided abdominal pain and intractable vomiting.? She presented on 12/12/2022 for the same symptoms.? She states it is just as severe now as it was when she was here in the ER before andshe has no new symptoms including urinary symptoms.? She states it started aftershe ate some sloppy Bogdan's with hamburger, her significant other ate this as welland he did not get any symptoms.? She has been seen here before for vomiting.? She apparently has a history of smoking marijuana but has not smoked any recently.? She denies any other drugs recently.? She had chicken noodle soup tonight, the because things do seem to get worse and she has been vomiting uncontrollably and she states that the main issue is the pain, which seems to make her then vomit more.? She has been having bowel movements, they are normal, she has been urinating andit is also normal.? She denies any pain in her back.? She denies any trouble breathing or other chest symptoms.? She denies any fevers or chills.? No travel out of the area recently or ingestion of any other suspicious foods. I requested that she have a DH tube placed. She states today that she feels verygood and has not had any more nausea and vomiting since the Dobbhoff tube was placed.? She had a tube removed and was able to tolerate a normal diet. She comes back into the hospital with the same symptoms. She says she has not been smoking any marijuana since her last admission. She has been back to the hospital 3 times since being DC'd for intractable nausea vomiting and abdominal pain. [facility] Medical History Cyclic vomiting syndrome Depression Endometrial cancer History of alcohol abuse Hypertension Non-smoker PCOS (polycystic ovarian syndrome) Retained ureteral stent Ureter injury Ureteral stricture, left Ureterolithiasis Home Medications ciprofloxacin HCl 500 mg tablet (Cipro) 500 mg PO BID #14 tabs 12/12/22 [Rx Last Taken 12/22/22] ondansetron 4 mg disintegrating tablet 4 mg PO Q8H PRN nausea and vomiting #14 tabs 12/12/22 [Rx Last Taken Unknown] Allergy/AdvReac Type Severity Reaction Status Date / Time ceftriaxone [From Rocephin] Allergy Hives Verified 12/23/22 10:32 promethazine [From Phenergan] Allergy Vomiting Verified 12/23/22 10:32 Ringer's solution,lactated Allergy Hives Verified 12/23/22 10:32 Family History Father No problems noted. Mother Anxiety and depression GERD (gastroesophageal reflux disease) Surgical History History of hysterectomy for cancer History of renal stent Social History household members: family Smoking Status: Never smoker alcohol intake: former substance use type: marijuana and other details: No marijuana use in the last month ROS ROS Narrative Denies any chest pain or shortness of breath. All other systems reviewed and essentially negative as above in the body of the history. Physical Exam Narrative General exam. Young lady, acutely ill-appearing, in some distress, appears miserable, holding vomit bag in hand. HEENT. Oral mucosa dry, no pallor or jaundice Neck. Neck is supple Heart. First and second heart sounds are no murmurs Lungs. Lungs are clear to auscultation and nonlabored breathing. Abdomen. Mild tenderness in the epigastrium and right upper quadrant. Extremities. No pedal edema CONCERT SINGER. Conscious alert and oriented x3. Cranial 2-12 grossly intact. Lab / Micro Data Result Diagrams: 12/24/22 06:10 12/24/22 06:10 Labs: Laboratory Results - last 24 hr 12/23/22 12:50: Sodium 140, Potassium 3.8, Chloride 111 H, Carbon Dioxide 23.0, Anion Gap 6, BUN 7, Creatinine 0.87, Estim Creat Clear Calc 106.00, Est GFR (MDRD) Af Amer 104, Est GFR (MDRD) Non-Af 86, BUN/Creatinine Ratio 8.1 L, Glucose 100, Calcium 8.8, Total Bilirubin 0.50, AST 21, ALT 23, Alkaline Phosphatase 53, Total Protein 7.3, Albumin 3.9, Globulin 3.4, Albumin/Globulin Ratio 1.1, Lipase 28 12/23/22 12:50: Lactic Acid 1.9 12/23/22 12:50: ESR 15 12/23/22 15:50: Lactate Dehydrogenase 171, C-React Prot Ext Range < 2.90 12/23/22 15:50: Urine 5-HIAA 24 Hour Cancelled, Urine 5-HIAA, Quant Cancelled 12/23/22 15:50: Insulin Level 23.1 12/23/22 15:50: Ammonia < 10.0 L 12/24/22 06:10: WBC 9.3, RBC 4.21, Hgb 11.4 L, Hct 35.6 L, MCV 84.6, MCH 27.1, MCHC 32.0, RDW Std Deviation 46.7 H, RDW Coeff of Roz 15.3 H, Plt Count 221, MPV9.0, Immature Gran % (Auto) 0.200, Neut % (Auto) 66.9, Lymph % (Auto) 24.3, [place]% (Auto) 8.0, Eos % (Auto) 0.4, Baso % (Auto) 0.2, Absolute Neuts (auto) 6.2, Absolute Lymphs (auto) 2.25, Nucleated RBC % 0 12/24/22 06:10: Sodium 141, Potassium 3.5, Chloride 112 H, Carbon Dioxide 24.0, Anion Gap 5, BUN 3 L, Creatinine 0.79, Estim Creat Clear Calc 116.73, Est GFR (MDRD) Af Amer 116, Est GFR (MDRD) Non-Af 96, BUN/Creatinine Ratio 3.8 L, Glucose 111 H, Calcium 8.4 L, Phosphorus 2.9, Magnesium 2.1, Total Bilirubin 0.40, AST 7 L, ALT 20, Alkaline Phosphatase 45, Total Protein 6.7, Albumin 3.5, Globulin 3.2, Albumin/Globulin Ratio 1.1 Radiology Impression Liver Ultrasound 12/23/22 16:08 IMPRESSION: Normal right upper quadrant ultrasound examination. Electronically Signed: Esequiel Cisneros DO at 16:59 EDT Reading Location ID and State: [address] [place] [address] Tel [phone], Service support , Assessment & Plan Assessment/Plan (1) Abdominal pain: (2) Nausea & vomiting: PLAN: Plan Patient is a 22-year-old lady with history of cyclical vomiting syndrome discharged from the hospital a day earlier following admission for nausea and vomiting and cystitis discharged on Cipro presented back to the emergency department with worsening abdominal pain in addition to nausea and vomiting presented with abdominal pain and intractable nausea vomiting 1.? Abdominal pain with intractable nausea vomiting ? Admitted to regular nursing floor for symptomatic management 2. Recent acute cystitis With pansensitive E. coli patient discharged on floor quinolones 3.? Dehydration ? Managed with IV fluid 4.? History of endometrial CA ? Currently stable 5.? DVT prophylaxis ? Low risk, encouraging ambulation 6. Cannabinoid use ? May be contributing to patient cyclical vomiting counseled on the need for cessation 7. I will send biochemical work-up for autoimmune disease. However she will have to do urine to test for diseases such as carcinoid, acute intermittent porphyria acute and she may need a gastric emptying study. . Charges/Coding Visit Charges Inpatient E&M: 94494 Init Hosp L3 12/24/22 1241 <Electronically signed by Corine Friend DO> Cosigner Signature (if applicable): CC: Dr. Tj Willams MD; Dr. Rodolfo Reid MD~ Signed [facility] Work Phone: [phone]) 353-588304-19-2023 Procedure [facility] 12-24-2022 Procedure [facility]04-18-2023 History and physical note Author Dr. Reid [facility] December 23, 2022 4:12pm Note Date/Time December 23, 2022 4:0 8pm [facility] Medical Records Department [address] [place] [address] History & Physical Exam 12/23/22 1605 MR#: [id number] Acct: [id number] Name: ADDIS TORRES Rep #:[id number] : 2000 22 From: Rodolfo Laurent PCP: Dr. Tj Willams MD Status: ADM AJQUI Location: [place] [id number] HPI - General General Date of Admission: 12/23/22 Date of Service: 12/23/22 Chief Complaint: Intractable nausea and vomiting HPI Narrative ADDIS TORRES, is a 22 F who presents intractable nausea and vomiting for about 1 to 2 weeks duration. Has been to the emergency department several times over the last 1 to 2 weeks for the same presentation. Suspected to have cyclical vomiting syndrome. Last used marijuana about a month ago. She also complains of some epigastric pain. No fever or chills. No chest pain or shortness of breath. She did have 1 episode of hematemesis several days ago. Does not report melanotic stools and has no diarrhea. Denies any recent medications or using any eilf-vcs-quokcaw medications. [facility] Medical History Cyclic vomiting syndrome Depression Endometrial cancer History of alcohol abuse Hypertension Non-smoker PCOS (polycystic ovarian syndrome) Retained ureteral stent Ureter injury Ureteral stricture, left Ureterolithiasis Home Medications ciprofloxacin HCl 500 mg tablet (Cipro) 500 mg PO BID #14 tabs 12/12/22 [Rx Last Taken 12/22/22] ondansetron 4 mg disintegrating tablet 4 mg PO Q8H PRN nausea and vomiting #14 tabs 12/12/22 [Rx Last Taken Unknown] Allergy/AdvReac Type Severity Reaction Status Date / Time ceftriaxone [From Rocephin] Allergy Hives Verified 12/23/22 10:32 promethazine [From Phenergan] Allergy Vomiting Verified 12/23/22 10:32 Ringer's solution,lactated Allergy Hives Verified 12/23/22 10:32 Family History Father No problems noted. Mother Anxiety and depression GERD (gastroesophageal reflux disease) Surgical History History of hysterectomy for cancer History of renal stent Social History household members: family Smoking Status: Never smoker alcohol intake: former substance use type: marijuana and other details: No marijuana use in the last month ROS ROS Narrative Denies any chest pain or shortness of breath. All other systems reviewed and essentially negative as above in the body of the history. Vital Signs Vital Signs Vital Signs: 12/23/22 10:30 12/23/22 14:34 12/23/22 15:04 Temperature 37.0 C 37.0 C 36.7 C Temperature Source Temporal Oral Temporal Pulse Rate 115 H 95 105 H Respiratory Rate 18 16 18 Respiratory Effort Blood Pressure 150/108 H 146/80 H 153/115 H Blood Pressure Mean 122 102 127 Blood Pressure Source Monitor Blood Pressure Position Sitting Blood Pressure Location Right Arm Pulse Ox 100 100 100 Oxygen Delivery Method Room Air Room Air Room Air 12/23/22 15:26 Temperature Temperature Source Pulse Rate Respiratory Rate Respiratory Effort Normal Blood Pressure Blood Pressure Mean Blood Pressure Source Blood Pressure Position Blood Pressure Location Pulse Ox Oxygen Delivery Method Room Air Weight Weight: 97.2 kg Body Mass Index (BMI) 31.6 Physical Exam Narrative General exam. Young lady, acutely ill-appearing, in some distress, appears miserable, holding vomit bag in hand. HEENT. Oral mucosa dry, no pallor or jaundice Neck. Neck is supple Heart. First and second heart sounds are no murmurs Lungs. Lungs are clear to auscultation and nonlabored breathing. Abdomen. Mild tenderness in the epigastrium and right upper quadrant. Extremities. No pedal edema CONCERT SINGER. Conscious alert and oriented x3. Cranial 2-12 grossly intact. Results Medical Records Data Attestation: I reviewed the patient's medical records Lab / Micro Data Attestation: I reviewed the patient's lab results. Result Diagrams: 12/23/22 11:45 12/23/22 12:50 Labs: Laboratory Results - last 24 hr 12/23/22 11:45: WBC 12.5 H, RBC 4.94, Hgb 13.1, Hct 42.5, MCV 86.0, MCH 26.5 L, MCHC 30.8 L D, RDW Std Deviation 47.7 H, RDW Coeff of Roz 15.1 H, Plt Count 228,MPV 9.0, Immature Gran % (Auto) 0.300, Neut % (Auto) 82.6 H, Lymph % (Auto) 11.4L, [place] % (Auto) 4.4, Eos % (Auto) 1.0, Baso % (Auto) 0.3, Absolute Neuts (auto)10.3 H, Absolute Lymphs (auto) 1.43, Nucleated RBC % 0 12/23/22 11:45: Lactic Acid Cancelled 12/23/22 11:55: Sodium Cancelled, Potassium Cancelled, Chloride Cancelled, Carbon Dioxide Cancelled, Anion Gap Cancelled, BUN Cancelled, Creatinine Cancelled, Estim Creat Clear Calc Cancelled, Est GFR (MDRD) Af Amer Cancelled, Est GFR (MDRD) Non-Af Cancelled, BUN/Creatinine Ratio Cancelled, Glucose Cancelled, Calcium Cancelled, Total Bilirubin Cancelled, AST Cancelled, ALT Cancelled, Alkaline Phosphatase Cancelled, Total Protein Cancelled, Albumin Cancelled, Globulin Cancelled, Albumin/Globulin Ratio Cancelled, Lipase Cancelled 12/23/22 12:50: Sodium 140, Potassium 3.8, Chloride 111 H, Carbon Dioxide 23.0, Anion Gap 6, BUN 7, Creatinine 0.87, Estim Creat Clear Calc 106.00, Est GFR (MDRD) Af Amer 104, Est GFR (MDRD) Non-Af 86, BUN/Creatinine Ratio 8.1 L, Glucose 100, Calcium 8.8, Total Bilirubin 0.50, AST 21, ALT 23, Alkaline Phosphatase 53, Total Protein 7.3, Albumin 3.9, Globulin 3.4, Albumin/Globulin Ratio 1.1, Lipase 28 12/23/22 12:50: Lactic Acid 1.9 12/23/22 12:50: ESR 15 Assessment & Plan Assessment/Plan (1) Cyclical vomiting: (2) Dehydration: PLAN: Plan Assessment and plan 1. Intractable nausea and vomiting. History of cyclical vomiting syndrome. Possibly the same. Nonetheless reasonable to rule out gastritis. We will keep patient n.p.o., consult gastroenterology for possible EGD. Schedule antiemeticswith Zofran 8 mg every 8 hours. Antacids. 2. Dehydration. Secondary to #1 above. We will keep on D5 normal saline with 20 of potassium at 100 cc an hour. Charges/Coding Visit Charges Inpatient E&M: 60004 Init Hosp L2 12/23/22 1612 <Electronically signed by Rodolfo Reid MD> Cosigner Signature (if applicable): CC: Dr. Tj Willams MD; Dr. Rodolfo Reid MD~ Signed [facility] Work Phone: 1(405) 124-806604-18-[address] San [facility] December 23, 2022 2:07pm Note Date/Time December 23, 2022 11: 04am [facility] Medical Records Department [address] [place] [id number] Emergency Department Summary 12/23/22 MR#: [id number] Acct: [id number] Name: ADDIS TORRES Rep #:[id number] : 2000 22 From: Kevin San MD PCP: Dr. Tj Willams MD Status: REG ER Location: ED HPI HPI - GI History of Present Illness Chief Complaint: Abd Pain Narrative Narrative: 22-year-old female presents to the emergency department for the fourth time in aweek according to her for epigastric pain and vomiting. She states that the pain is so severe in the epigastrium that she vomits. She has had CT scans in the past and was admitted for few days because of all the vomiting. These of the same symptoms that she has had in the past. 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 She complains of epigastric pain and multiple episodes of vomiting. No exacerbatingor alleviating factors. [facility] Medical History Cyclic vomiting syndrome Depression Endometrial cancer History of alcohol abuse Hypertension Non-smoker PCOS (polycystic ovarian syndrome) Retained ureteral stent Ureter injury Ureteral stricture, left Ureterolithiasis Home Medications ciprofloxacin HCl 500 mg tablet (Cipro) 500 mg PO BID #14 tabs 12/12/22 [Rx Last Taken Unknown] ondansetron 4 mg disintegrating tablet 4 mg PO Q8H PRN nausea and vomiting #14 tabs 12/12/22 [Rx Last Taken Unknown] metoclopramide HCl 10 mg tablet (Reglan) 10 mg PO Q6H PRN nausea and vomiting #12 tabs 12/22/22 [Rx Last Taken Unknown] Allergy/AdvReac Type Severity Reaction Status Date / Time ceftriaxone [From Rocephin] Allergy Hives Verified 12/23/22 10:32 promethazine [From Phenergan] Allergy Vomiting Verified 12/23/22 10:32 Ringer's solution,lactated Allergy Hives Verified 12/23/22 10:32 Family History Father No problems noted. Mother Anxiety and depression GERD (gastroesophageal reflux disease) Surgical History History of hysterectomy for cancer History of renal stent Social History household members: family Smoking Status: Never smoker alcohol intake: former substance use type: marijuana and other details: No marijuana use in the last month ROS ROS ED ROS Narrative Constitutional: No fever, no chills. HEENT: No sore throat. No neck pain. No loss of vision. No rhinorrhea. Cardiovascular: No chest pain. No palpitations. No pedal edema. Respiratory: No cough, no shortness of breath. Abdominal: Epigastric abdominal pain. Multiple episodes of nausea and vomiting,nonbloody. Genitourinary: No dysuria. No hematuria. Musculoskeletal: No myalgias. No arthralgias. Neurologic: No headaches. No dizziness. No lightheadedness. Skin: No rash. No change in color. Psychiatric: No depression. No anxiety. EXAM Physical Exam Narrative Exam Narrative: Afebrile. Vital signs noted. HEENT: Normocephalic. Atraumatic. PERRL, EOMI. Neck soft and supple. No pointtenderness or step off. Cardiovascular: Positive tachycardia no murmurs, rubs, or gallops appreciated. Respiratory: No tachypnea. Lungs clear to auscultation bilaterally. Gastrointestinal: Abdomen soft, tenderness to palpation in epigastrium, with normoactive bowel sounds. No rebound or guarding. Holding a bag full of nonbloody emesis. Neurological: Awake. Alert. Nonfocal, nonlateralizing. Skin: No rash. Normal color. No pallor. Musculoskeletal: No pedal edema. Full range of motion extremities. Const Vital Signs: 12/23/22 10:30 Temperature 98.6 F Temperature Source Temporal Pulse Rate 115 H Respiratory Rate 18 Blood Pressure 150/108 H Blood Pressure Mean 122 Pulse Ox 100 Oxygen Delivery Method Room Air MDM MDM MDM Narrative Medical decision making narrative: I reviewed the patient's prior records and ED visits. She has had CT scanning in the past that is negative. I do not feel that another CT imaging of the abdomen would be of benefit. It seems that she has more cyclic vomiting and occasional CBD oil/marijuana use. I will ask her if she has used recently sinceher last visit, but regardless she will be treated symptomatically. She is supposed to be taking Reglan at home and supposedly has ondansetron at home. Here she will be bolused for her tachycardia and suspected dehydration and lactic acidosis as it has been elevated in the past. She will be given haloperidol 2 mg intravenously for cyclic vomiting. I reviewed her laboratory work and she has an elevated white count of 12.5, but this is down from the leukocytosis from yesterday. I do think this may be demargination from her continued vomiting. Hemoglobin is normal at 13.1, hematocrit 42.5, platelet count normal at 228. Her initial laboratory work otherwise was hemolyzed so a redraw needed to be performed. In review of her lactic acid, it is normal at 1.9, down from previous when it was elevated at 2 or 3 which may have been from dehydration. CMP shows normal sodium of 140 with chloride elevated at 111. Normal potassium. Lipase is normal at 28. Upon repeat examination, she states that she is still having pain and feels no better. I discussed with her her use of cannabinoids, and she states she uses THC not CBD or marijuana. I do not feel that narcotic pain medication is indicated. She will be given Bentyl 20 mg intramuscularly. I reviewed her ED visit from yesterday, and there was talk of admitting her. I will discuss patient with Dr. Combs with gastroenterology. He states that he thinks that she should be brought in for endoscopy as the last time he saw her, he did not perform this. He had inserted a Dobbhoff which seemed to have resolved her issues. I then discussed the patient with Dr. Reid with hospitalist medicine for observation. Disposition is assigned to observation. Patient is in stable condition. History & Record Review Discussion w/independent historian: Patient Additional record(s) reviewed:: Prior ED visit (Seen multiple times, usually haslactic acidosis, admits to marijuana use on occasion or smoking CBD oil. Cyclicvomiting) Lab Data Attestation: I reviewed the patient's lab results. Labs: Laboratory Results - last 24 hr 12/23/22 12/23/22 12/23/22 11:45 11:45 11:55 WBC 12.5 H RBC 4.94 Hgb 13.1 Hct 42.5 MCV 86.0 MCH 26.5 L MCHC 30.8 L D RDW Std Deviation 47.7 H RDW Coeff of Roz 15.1 H Plt Count 228 MPV 9.0 Immature Gran % (Auto) 0.300 Neut % (Auto) 82.6 H Lymph % (Auto) 11.4 L [place] % (Auto) 4.4 Eos % (Auto) 1.0 Baso % (Auto) 0.3 Absolute Neuts (auto) 10.3 H Absolute Lymphs (auto) 1.43 Nucleated RBC % 0 Sodium Cancelled Potassium Cancelled Chloride Cancelled Carbon Dioxide Cancelled Anion Gap Cancelled BUN Cancelled Creatinine Cancelled Estim Creat Clear Calc Cancelled Est GFR (MDRD) Af Amer Cancelled Est GFR (MDRD) Non-Af Cancelled BUN/Creatinine Ratio Cancelled Glucose Cancelled Lactic Acid Cancelled Calcium Cancelled Total Bilirubin Cancelled AST Cancelled ALT Cancelled Alkaline Phosphatase Cancelled Total Protein Cancelled Albumin Cancelled Globulin Cancelled Albumin/Globulin Ratio Cancelled Lipase Cancelled 12/23/22 12/23/22 12:50 12:50 WBC RBC Hgb Hct MCV MCH MCHC RDW Std Deviation RDW Coeff of Roz Plt Count MPV Immature Gran % (Auto) Neut % (Auto) Lymph % (Auto) [place] % (Auto) Eos % (Auto) Baso % (Auto) Absolute Neuts (auto) Absolute Lymphs (auto) Nucleated RBC % Sodium 140 Potassium 3.8 Chloride 111 H Carbon Dioxide 23.0 Anion Gap 6 BUN 7 Creatinine 0.87 Estim Creat Clear Calc 106.00 Est GFR (MDRD) Af Amer 104 Est GFR (MDRD) Non-Af 86 BUN/Creatinine Ratio 8.1 L Glucose 100 Lactic Acid 1.9 Calcium 8.8 Total Bilirubin 0.50 AST 21 ALT 23 Alkaline Phosphatase 53 Total Protein 7.3 Albumin 3.9 Globulin 3.4 Albumin/Globulin Ratio 1.1 Lipase 28 Discharge Plan Triage Chief Complaint: Abd Pain ED Provider: Kevin San Dx/Rx/DC Orders Clinical Impression: Cyclical vomiting Prescriptions: No Action ciprofloxacin HCl [Cipro] 500 mg tablet 500 mg PO BID Qty: 14 0RF ondansetron 4 mg tablet,disintegrating 4 mg PO Q8H PRN (Reason: nausea and vomiting) Qty: 14 0RF metoclopramide HCl [Reglan] 10 mg tablet 10 mg PO Q6H PRN (Reason: nausea and vomiting) Qty: 12 0RF Primary Care Provider: Tj Willams Referrals: Tj Willams MD [Primary Care Provider] - What to do if you have Problems For any increased pain, shortness of breath, bleeding, nausea or vomiting, chestpain, or any unexpected problems, contact your Primary Care Provider. Call [facility] ([phone]) or report to the closest Emergency Room. Call 911 if necessary. 12/23/22 1407 <Electronically signed by Kevin San MD> Cosigner Signature (if applicable): CC: Dr. Tj Willams MD ~ Signed [facility] Work Phone: [phone]) 631-987504-09-[address] Kittoe [facility] December 14, 2022 8:35am Note Date/Time December 14, 2022 7:22 am [facility] Medical Records Department [address] [place] [address] Progress Note - Hospitalist 12/14/2219 MR#: [id number] Acct: [id number] Name: ADDIS TORRES Rep #:[id number] : 2000 22 From: Daniel Fatima MD PCP: Dr. Tj Willams MD Status: ADM IN Location: [place] [address] Reason for Visit Reason for Visit: Diagnoses Unspecified abdominal pain (12/13/22) Nausea with vomiting, unspecified (12/13/22) Subjective Subjective Patient is a 22-year-old lady with history of cyclical vomiting syndrome discharged from the hospital a day earlier following admission for nausea and vomiting and cystitis discharged on Cipro presented back to the emergency department with worsening abdominal pain in addition to nausea and vomiting presented with abdominal pain and intractable nausea and vomiting Objective Data Objective Data Vital Signs: Vital Signs Temp Pulse Resp BP Pulse Ox O2 Del Method 98.4 F 79 16 131/76 H 98 Room Air 12/14/22 03:00 12/14/22 03:00 12/14/22 03:00 12/14/22 03:00 12/14/22 03:00 12/14/22 03:00 Oxygen Delivery Method Room Air Weight: 97.1 kg Body Mass Index (BMI) 31.6 Intake & Output: Intake and Output for Last 24 Hours 12/12/22 12/13/22 12/14/22 23:59 23:59 23:59 Intake Total 1423 / 1423 1300 / 1300 Balance 1423 / 1423 1300 / 1300 Lab / Micro Data Result Diagrams: 12/14/22 05:20 12/14/22 05:20 Labs: Laboratory Results - last 24 hr 12/13/22 11:50: WBC 12.0 H, RBC 4.70, Hgb 12.8, Hct 39.7, MCV 84.5, MCH 27.2, MCHC 32.2, RDW Std Deviation 44.4 H, RDW Coeff of Roz 14.5, Plt Count 217, MPV 10.1, Immature Gran % (Auto) 0.300, Neut % (Auto) 83.2 H, Lymph % (Auto) 11.4 L,[place] % (Auto) 4.2, Eos % (Auto) 0.6, Baso % (Auto) 0.3, Absolute Neuts (auto) 10.0 H, Absolute Lymphs (auto) 1.37, Nucleated RBC % 0 12/13/22 11:50: Sodium 139, Potassium 3.3 L, Chloride 108 H, Carbon Dioxide 21.0, Anion Gap 10, BUN 11, Creatinine 1.04 H, Estim Creat Clear Calc 88.67, EstGFR (MDRD) Af Amer 85, Est GFR (MDRD) Non-Af 70, BUN/Creatinine Ratio 10.6, Glucose 94, Calcium 9.3, Total Bilirubin 0.60, AST 11 L, ALT 23, Alkaline Phosphatase 52, Total Protein 8.0, Albumin 4.1, Globulin 3.9, Albumin/Globulin Ratio 1.1, Lipase 101 12/13/22 11:50: Magnesium 2.0 12/13/22 13:20: Urine Opiates Screen NEGATIVE, Urine Methadone Screen NEGATIVE, Ur Barbiturates Screen NEGATIVE, Ur Phencyclidine Scrn NEGATIVE, Ur AmphetaminesScreen NEGATIVE, MDMA (Ecstasy) Screen NEGATIVE, U Benzodiazepines Scrn NEGATIVE, Urine Cocaine Screen NEGATIVE, U Cannabinoids Screen POSITIVE H, Ur Drug Screen Comment 12/14/22 05:20: WBC 8.6, RBC 4.11 L, Hgb 10.7 L, Hct 35.0 L, MCV 85.2, MCH 26.0 L, MCHC 30.6 L, RDW Std Deviation 44.1 H, RDW Coeff of Roz 14.4, Plt Count 189, MPV 9.2, Immature Gran % (Auto) 0.300, Neut % (Auto) 58.3, Lymph % (Auto) 32.3, [place] % (Auto) 8.0, Eos % (Auto) 0.6, Baso % (Auto) 0.5, Absolute Neuts (auto) 5.0, Absolute Lymphs (auto) 2.78, Nucleated RBC % 0 12/14/22 05:20: Sodium 138, Potassium 3.5, Chloride 112 H, Carbon Dioxide 21.0, Anion Gap 5, BUN 8, Creatinine 0.63, Estim Creat Clear Calc 146.38, Est GFR (MDRD) Af Amer 150, Est GFR (MDRD) Non-Af 124, BUN/Creatinine Ratio 12.6, Glucose 80, Calcium 8.0 L, Total Bilirubin 0.60, AST 8 L, ALT 18, Alkaline Phosphatase 40 L, Total Protein 6.3 L, Albumin 3.3, Globulin 3.0, Albumin/Globulin Ratio 1.1 Radiography Diagnostic Testing: Radiology Impression KUB X-Ray 12/13/22 19:05 IMPRESSION: Proximal position of the Dobbhoff tube which should be advanced 30 to 40 cm. Electronically Signed: Freedom Scott MD at 19:37 EDT Reading Location ID and State: [facility] / [place] Tel , Service support , Physical Exam Narrative GENERAL: cooperative HEENT: Atraumatic; normocephalic, NG tube in place EYES; Anicteric, Normal Conjunctiva NECK; supple, normal thyroid, RESPIRATORY: Diminished to auscultation CARDIOVASCULAR:? Regular S1 S2, GI:? soft, normoactive bowel sounds, : No Renal angle tenderness; EXTREMITIES:? No edema, no clubbing, MUSCULOSKELETAL:? no muscle wasting NEURO:? Awake;? no lateralizing signs. SKIN:? No Rash PSYCH; Flat? affect Assessment & Plan Assessment/Plan (1) Abdominal pain: (2) Nausea & vomiting: PLAN: Plan Patient is a 22-year-old lady with history of cyclical vomiting syndrome discharged from the hospital a day earlier following admission for nausea and vomiting and cystitis discharged on Cipro presented back to the emergency department with worsening abdominal pain in addition to nausea and vomiting presented with abdominal pain and intractable nausea vomiting 1.? Abdominal pain with intractable nausea vomiting ? Admitted to regular nursing floor for symptomatic management 2. Recent acute cystitis With pansensitive E. coli patient discharged on floor quinolones 3.? Dehydration ? Managed with IV fluid 4.? History of endometrial CA ? Currently stable 5.? DVT prophylaxis ? Low risk, encouraging ambulation 6. Cannabinoid use ? May be contributing to patient cyclical vomiting counseled on the need for cessation Time spent in the patient's overall evaluation,decision-making process, review of diagnostic data, adjustment of management, discussion with other providers, nursing nursing and ancillary staff involved in patient's care documentation, 35minutes Charges/Coding Visit Charges Inpatient E&M: 28673 Subs Hosp L2 12/14/22 0835 <Electronically signed by Daniel Fatima MD> Cosigner Signature (if applicable): CC: ~ Signed [facility] Work Phone: [phone]) [phone] Santos [facility] December 13, 2022 11:02pm Note Date/Time December 13, 2022 11:4 5am [facility] Medical Records Department [address] [place] [address] Emergency Department Summary 12/13/22 MR#: [id number] Acct: [id number] Name: ADDIS TORRES Rep #:[id number] : 2000 22 From: Patti Sands PCP: Dr. Tj Willams MD Status: ADM IN Location: [place] [address] HPI HPI - GI History of Present Illness Chief Complaint: Abd Pain Informant: patient and spouse/S.O. Narrative Narrative: Patient is a 22-year-old female with history of PCOS, hysterectomy and what sounds like cyclic vomiting syndrome however patient denies presenting with continued abdominal pain as well as nausea and vomiting. Patient states she is been having abdominal pain which is then causing her to vomit since Thursday. She was admitted to the hospital on (2 days ago) for intractable nausea/vomiting as well as a UTI. In the hospital she received Compazine and Haldol. She states her symptoms never got under control however she was discharged home yesterday. She did have a scopolamine patch but states it fell off but it was not working anyway. She did try a hot shower before coming in with no relief of her symptoms. She denies any change in her symptoms except that her vomiting and abdominal pain is now more severe. Patient did have a CT of her abdomen and pelvis on 12/09 as well as 12/11. On 12/11 that showed mild to moderate constipation with mild wall thickening of the bladder, consider cystitis. Status post hysterectomy. No hydronephrosis. Patient did have a urine culture that was positive for pansensitive E. coli. States she not been able to tolerate her antibiotics since discharge and the ODT Jose Ramon is not working at home. [facility] Medical History (Updated 12/13/22 @ 23:[address] Patti Santos, DO) Cyclic vomiting syndrome Depression Endometrial cancer History of alcohol abuse Hypertension Non-smoker PCOS (polycystic ovarian syndrome) Retained ureteral stent Ureter injury Ureteral stricture, left Home Medications ciprofloxacin HCl 500 mg tablet (Cipro) 500 mg PO BID #14 tabs 12/12/22 [Rx Last Taken Unknown] ondansetron 4 mg disintegrating tablet 4 mg PO Q8H PRN nausea and vomiting #14 tabs 12/12/22 [Rx Last Taken Unknown] Allergy/AdvReac Type Severity Reaction Status Date / Time ceftriaxone [From Rocephin] Allergy Hives Verified 12/13/22 10:41 promethazine [From Phenergan] Allergy Vomiting Verified 12/13/22 10:41 Ringer's solution,lactated Allergy Hives Verified 12/13/22 10:41 Family History (Updated 12/13/22 @ 18:[address] Sandy Solis MD) Father No problems noted. Mother Anxiety and depression GERD (gastroesophageal reflux disease) Surgical History History of hysterectomy for cancer History of renal stent Social History household members: family Smoking Status: Never smoker alcohol intake: former substance use type: marijuana and other details: No marijuana use in the last month ROS [facility] ED Constitutional Constitutional ED: Denies chills or fever(s) ENT ENT ED: Denies sore throat Cardiovascular Cardiovascular: Denies chest pain Respiratory/Chest Respiratory/Chest: Denies cough Gastrointestinal Gastrointestinal: Reports abdominal pain, nausea and vomiting Musculoskeletal Musculoskeletal: Denies arthralgias or myalgias Integumentary Denies rash Neurologic Neurologic: Denies headache(s) Psychiatric Psychiatric: Reports anxiety EXAM Physical Exam Const Vital Signs: 12/13/22 10:42 12/13/22 12:58 Temperature 98.7 F 98.4 F Temperature Source Temporal Temporal Pulse Rate 73 73 Respiratory Rate 18 18 Blood Pressure 143/67 H 144/88 H Blood Pressure Mean 92 106 Pulse Ox 99 99 Oxygen Delivery Method Room Air Room Air Positive well nourished and well developed Constitutional Narrative: Patient retching, uncomfortable appearing General Appearance ED: well developed; Negative for pallor HEENT Reports dry mucous membranes normocephalic and atraumatic Mouth ED: Yes dry mucous membranes Mouth: dry mucous membranes Eyes PERRL and EOMs intact bilaterally Neck supple Resp normal respiratory effort and clear to auscultation bilaterally Cardio regular rate, regular rhythm and no murmurs GI non-distended GI Narrative: Diffusely tender. No peritoneal signs. Palpation: Negative for guarding or rigid Back/Spine no CVA tenderness Extremity full ROM Neuro moves all extremities Sensorium / Orientation: alert Motor Exam: general weakness Psych mental status grossly normal and thought process normal Mood & Affect: anxious Skin no wounds General Skin Exam: Negative for jaundice or pallor MDM MDM MDM Narrative Medical decision making narrative: Patient is evaluated for recurrent nausea and vomiting. She complained of diffuse abdominal pain. Patient has had 2 CTs of her abdomen pelvis for similarpresentation over the past week. I do not think she requires repeat imaging. She seems to have a history of cyclic vomiting syndrome but denies this to me. Her drug screen is positive for cannabis however she is stated she had not used any cannabis in over a year. Patient has a mild leukocytosis of 12.0 however itstill down from earlier in the week when it was 16.0. Potassium mildly low at 3.3 and her creatinine is at 1.04. When patient was discharged yesterday her creatinine was 0.74 so she likely does have a component of dehydration. She does not have any other electrolyte abnormalities. Patient is treated with IV Zofran and fluids. She does not have improvement with the Zofran. She is then given the cyclic vomiting syndrome protocol medications. Her vomit is nonbloody nonbilious. She does seem more comfortableand is now resting. She is able to tolerate oral Bentyl. However when she wakes up she starts retching again. Given her intractable nausea vomiting likely she will require admission. I did discuss the case with Dr. Combs, SHERI. He recommended a Dobbhoff to suction out the remaining contents of her stomach, provide stomach rest and then they can start tube feeds. Patient states that she has had tube feeds in the past as well as TPN and needs sedation for it. Patient is given 2 mg IV Versed and then the NG tube is placed. She does not tolerate the tube well however I am able to get it placed. X-ray shows that it does need to be advanced. Patient is having increased pain after the tube was placed and so she is given a small dose of fentanyl as well as dose of IV Haldoland IV Toradol. History & Record Review Additional record(s) reviewed:: Prior inpatient record (Admission for intractable nausea, vomiting, intractable abdominal pain and UTI. Culture was E. coli that pansensitive. Discharged home yesterday.) Lab Data Attestation: I reviewed the patient's lab results. Labs: Laboratory Results - last 24 hr 12/13/22 12/13/22 12/13/22 11:50 11:50 11:50 WBC 12.0 H RBC 4.70 Hgb 12.8 Hct 39.7 MCV 84.5 MCH 27.2 MCHC 32.2 RDW Std Deviation 44.4 H RDW Coeff of Roz 14.5 Plt Count 217 MPV 10.1 Immature Gran % (Auto) 0.300 Neut % (Auto) 83.2 H Lymph % (Auto) 11.4 L [place] % (Auto) 4.2 Eos % (Auto) 0.6 Baso % (Auto) 0.3 Absolute Neuts (auto) 10.0 H Absolute Lymphs (auto) 1.37 Nucleated RBC % 0 Sodium 139 Potassium 3.3 L Chloride 108 H Carbon Dioxide 21.0 Anion Gap 10 BUN 11 Creatinine 1.04 H Estim Creat Clear Calc 88.67 Est GFR (MDRD) Af Amer 85 Est GFR (MDRD) Non-Af 70 BUN/Creatinine Ratio 10.6 Glucose 94 Calcium 9.3 Magnesium 2.0 Total Bilirubin 0.60 AST 11 L ALT 23 Alkaline Phosphatase 52 Total Protein 8.0 Albumin 4.1 Globulin 3.9 Albumin/Globulin Ratio 1.1 Lipase 101 Urine Opiates Screen Urine Methadone Screen Ur Barbiturates Screen Ur Phencyclidine Scrn Ur Amphetamines Screen MDMA (Ecstasy) Screen U Benzodiazepines Scrn Urine Cocaine Screen U Cannabinoids Screen Ur Drug Screen Comment 12/13/22 13:20 WBC RBC Hgb Hct MCV MCH MCHC RDW Std Deviation RDW Coeff of Roz Plt Count MPV Immature Gran % (Auto) Neut % (Auto) Lymph % (Auto) [place] % (Auto) Eos % (Auto) Baso % (Auto) Absolute Neuts (auto) Absolute Lymphs (auto) Nucleated RBC % Sodium Potassium Chloride Carbon Dioxide Anion Gap BUN Creatinine Estim Creat Clear Calc Est GFR (MDRD) Af Amer Est GFR (MDRD) Non-Af BUN/Creatinine Ratio Glucose Calcium Magnesium Total Bilirubin AST ALT Alkaline Phosphatase Total Protein Albumin Globulin Albumin/Globulin Ratio Lipase Urine Opiates Screen NEGATIVE Urine Methadone Screen NEGATIVE Ur Barbiturates Screen NEGATIVE Ur Phencyclidine Scrn NEGATIVE Ur Amphetamines Screen NEGATIVE MDMA (Ecstasy) Screen NEGATIVE U Benzodiazepines Scrn NEGATIVE Urine Cocaine Screen NEGATIVE U Cannabinoids Screen POSITIVE H Ur Drug Screen Comment Management Discussion w/another healthcare provider: Hospitalist and Garbage Truck Driver (GI) Discharge Plan Dx/Rx/DC Orders Clinical Impression: Dehydration, Intractable vomiting, Leukocytosis Disposition Disposition: Acute Care Hospital [facility] Discharge Date/Time: 12/13/22 20:14 What to do if you have Problems For any increased pain, shortness of breath, bleeding, nausea or vomiting, chestpain, or any unexpected problems, contact your Primary Care Provider. Call [facility] ([phone]) or report to the closest Emergency Room. Call 911 if necessary. 12/13/222301 <Electronically signed by Patti Santos DO> Cosigner Signature (if applicable): CC: Dr. Tj Willams MD ~ Signed [facility] Work Phone: [phone]) 171-931904-08-2023 History and physical note Author Dr. Solis [facility] December 13, 2022 6:49pm Note Date/Time December 13, 2022 4:42 pm [facility] Medical Records Department [address] [place] [id number] History & Physical Exam 12/13/22 1636 MR#: [id number] Acct: [id number] Name: ADDIS TORRES Rep #:[id number] : 2000 22 From: Sandy Solis MD PCP: Dr. Tj Willams MD Status: ADM IN Location: [facility] RG310-6 HPI - General General Date of Admission: 12/13/22 Date of Service: 12/13/22 Chief Complaint: Intractable L sided abdominal pain, N/V HPI Narrative The patient is a 22 y/o F w/ PMHx: Hx Endometrial CA s/p hysterectomy, Hx PCOS, Hx ureteral strictures s/p stenting, HTN, Depression and Anxiety, Hx EtOH abuse reporting sobriety and chart noted Cannabis chronic use with history of cyclic vomiting syndrome who presents to the [facility] ED on 12/13/22 with history of recent discharge 12/12/22 secondary to persistent left-sided abdominal pain with intractable nausea and emesis with CT imaging at that time demonstrating mild wall thickening with possible cystitis with urine cultures consistent with pansensitive E. coli UTI with colony count greater than 100,000 discharged on ciprofloxacin 7-day additional course with since her discharge ongoing abdominaldiscomfort now she is reporting it is more severe with associated nausea and emesis prompting representation. Patient during her prior admission did report a mild amount of small blood with her emesis which was felt secondary to a Cindy-Shani tear as she had significantly stable hemoglobins which were trended over time. Work-up in the ED included T98.4, heart rate 73, BP 144/88, respiratory rate 18, 99% on room air, CBC with WC 12, hemoglobin 12.8, [id number] with left shift, CMP with potassium 3.3, chloride 108, BUN/creat 11/1.04 otherwise hepatic profile not marked appearing, lipase 101. In the ED patient ministered 1 L normal saline, Zofran 4 mg IV x1, Ativan 5 mg IV x1, Levaquin 750mg IV x1, famotidine 20 mg IV, diphenhydramine 50 mg IV as well as dicyclomine 20 mg p.o. x1. Of note patient did have CT abdomen and pelvis on both 12/09/2022 and 12/11/2022. ED discussed case with GI Dr. Combs upon patient admission and decision for placement of Dobbhoff tube with attachment to low intermittent wallsuction and trial of Haldol given intractable nature. [facility] Medical History (Updated 12/13/22 @ 16:[address] Sandy Solis MD) Cyclic vomiting syndrome Depression Endometrial cancer History of alcohol abuse Hypertension Non-smoker PCOS (polycystic ovarian syndrome) Retained ureteral stent Ureter injury Ureteral stricture, left Home Medications ciprofloxacin HCl 500 mg tablet (Cipro) 500 mg PO BID #14 tabs 12/12/22 [Rx Last Taken Unknown] ondansetron 4 mg disintegrating tablet 4 mg PO Q8H PRN nausea and vomiting #14 tabs 12/12/22 [Rx Last Taken Unknown] Allergy/AdvReac Type Severity Reaction Status Date / Time ceftriaxone [From Rocephin] Allergy Hives Verified 12/13/22 10:41 promethazine [From Phenergan] Allergy Vomiting Verified 12/13/22 10:41 Ringer's solution,lactated Allergy Hives Verified 12/13/22 10:41 Family History (Updated 12/13/22 @ 18:[address] Sandy Solis MD) Father No problems noted. Mother Anxiety and depression GERD (gastroesophageal reflux disease) Surgical History History of hysterectomy for cancer History of renal stent Social History household members: family Smoking Status: Never smoker alcohol intake: former substance use type: marijuana and other details: No marijuana use in the last month ROS ROS Narrative Admission Review of Systems: CONSTITUTIONAL: No weight loss, fever, chills, + weakness or fatigue. HEENT: Eyes: No visual loss, blurred vision, double vision or yellow sclerae. Ears, Nose, Throat: No hearing loss, sneezing, congestion, runny nose or sore throat. SKIN: No rash or itching, lesions, wounds. CARDIOVASCULAR: No chest pain, chest pressure or chest discomfort, palpitations,edema, orthopnea, syncopal events. RESPIRATORY: No shortness of breath, cough or sputum, wheezing, hemoptysis. GASTROINTESTINAL: + anorexia, nausea, vomiting, abdominal pain, constipation. Nodiarrhea, melena, BRBPR. GENITOURINARY: No dysuria, frequency, urgency or retention. NEUROLOGICAL: No headache, dizziness, syncope, paralysis, ataxia, numbness or tingling in the extremities, focal weakness, change in bowel or bladder control,seizure. MUSCULOSKELETAL: + muscle, back pain, joint pain or stiffness. HEMATOLOGIC: No anemia, bleeding or bruising. LYMPHATICS: No enlarged nodes. No history of splenectomy. PSYCHIATRIC: + history of depression or anxiety. ENDOCRINOLOGIC: No reports of sweating, cold or heat intolerance. No polyuria orpolydipsia. ALLERGIES: No history of asthma, hives, eczema or rhinitis. Vital Signs Vital Signs Vital Signs: 12/13/22 10:42 12/13/22 12:58 Temperature 98.7 F 98.4 F Temperature Source Temporal Temporal Pulse Rate 73 73 Respiratory Rate 18 18 Blood Pressure 143/67 H 144/88 H Blood Pressure Mean 92 106 Pulse Ox 99 99 Oxygen Delivery Method Room Air Room Air Weight Weight: 213 lb 13.574 oz Body Mass Index (BMI) 31.6 Physical Exam Narrative Physical Examination: General: Awake, alert, oriented x 3 and cooperative, seated upright in the ED bed, fatigued and ill-appearing, notable for she was in Skin: Normal color, normal turgor, no icterus, no cyanosis except staged ecchymoses likely from previous IV sites and lab draws from recent hospitalization. HEENT: AT/NC, EOMI, PERRLA, dry MM, no carotid bruits or JVD noted. Lungs: Mildly diminished, greater bases, appropriate effort, no rales, ronchi orwheezing. Heart: Currently regular rate and rhythm; no gallop, rub audible. Abdomen: Soft, primarily discomfort to the left upper and lower quadrant but no rebound or guarding, no marked distention, mildly hyperactive bowel sounds, no obvious HSM but difficult exam given discomfort. Extremities: No cyanosis, clubbing, or edema. Neurological: Patient awake, alert, oriented as noted, cognitive function intact; pupils equally reactive to light and accommodation, cranial nerves II-XII grossly normal, moving all 4 extremities, no focal deficits, strength moderately global decrease secondary to current acute complaints Psychiatric: Affect appears fatigued, ill-appearing, currently not having emesis, no acute evidence of depressive or anxiety feelings but does have underlying history. Results Lab / Micro Data Result Diagrams: 12/13/22 11:50 12/13/22 11:50 Labs: Laboratory Results - last 24 hr 12/13/22 11:50: WBC 12.0 H, RBC 4.70, Hgb 12.8, Hct 39.7, MCV 84.5, MCH 27.2, MCHC 32.2, RDW Std Deviation 44.4 H, RDW Coeff of Roz 14.5, Plt Count 217, MPV 10.1, Immature Gran % (Auto) 0.300, Neut % (Auto) 83.2 H, Lymph % (Auto) 11.4 L,[place] % (Auto) 4.2, Eos % (Auto) 0.6, Baso % (Auto) 0.3, Absolute Neuts (auto) 10.0 H, Absolute Lymphs (auto) 1.37, Nucleated RBC % 0 12/13/22 11:50: Sodium 139, Potassium 3.3 L, Chloride 108 H, Carbon Dioxide 21.0, Anion Gap 10, BUN 11, Creatinine 1.04 H, Estim Creat Clear Calc 88.67, EstGFR (MDRD) Af Amer 85, Est GFR (MDRD) Non-Af 70, BUN/Creatinine Ratio 10.6, Glucose 94, Calcium 9.3, Total Bilirubin 0.60, AST 11 L, ALT 23, Alkaline Phosphatase 52, Total Protein 8.0, Albumin 4.1, Globulin 3.9, Albumin/Globulin Ratio 1.1, Lipase 101 Assessment & Plan Assessment/Plan (1) Abdominal pain: (2) Nausea & vomiting: PLAN: Plan The patient is a 22 y/o F w/ PMHx: Hx Endometrial CA s/p hysterectomy, Hx PCOS, Hx ureteral strictures s/p stenting, HTN, Depression and Anxiety, Hx EtOH abuse reporting sobriety and chart noted Cannabis chronic use with history of cyclic vomiting syndrome who presents to the [facility] ED on 12/13/22 with history of recent discharge 12/12/22 secondary to persistent left-sided abdominal pain with intractable nausea and emesis with CT imaging at that time demonstrating mild wall thickening with possible cystitis with urine cultures consistent with pansensitive E. coli UTI with colony count greater than 100,000 discharged on ciprofloxacin 7-day additional course with since her discharge ongoing abdominaldiscomfort now she is reporting it is more severe with associated nausea and emesis prompting representation. #1. Intractable Nausea and Emesis, abdominal diffuse pain, Multifactorial, possible secondary to Recent acute E. coli urinary tract infection and also possible component cyclic vomiting syndrome with cannbis usage: Will admit to [place], as noted patient with diagnosis recently with acute urinary tract infection with armendariz sensitivity, given intractable nausea and recurrent emesis will transition back to IV Levaquin and may need to be redosed today number needed given potential inability to tolerate any of her medications since discharge, will continue serial antiemetic regimen with trial haldol with scheduled regimenif assists and continue as needed Compazine, per GI recommendation planned initiate of DHT in the ED with LIWS to see if assists in calming her N/V, encourage avoidance of cannabis, UDS requested, maintain on IV PPI, will continue GI consultation initiated per ED. #2. Mild acute renal insufficiency: Admission BUN/creatinine 11/1.04, baseline creatinine primarily 0.5-0.8, will continue judicious hydration and repeat levelin a.m. #3. Hypokalemia: Admission K+ 3.3, magnesium level requested, supplementation given, repeat level in AM. #4. Hypertension: Noted history however per review of medications patient is not on any medication, BP currently above goal, potentially related with her acute presentation, continue to monitor and add regimen if appropriate, as needed IV hydralazine in the interim. #5. History endometrial cancer: Status post hysterectomy, considered in remission, encourage continued outpatient follow-up as previously arranged #6. Anxiety and depression: We will continue patient home sertraline regimen. #7. History of left ureteral injury: Patient with reported unfortunate left ureteral injury during hysterectomy secondary to underlying uterine cancer in 2020 with recent further intervention and reversal by Dr. Barahona in [facility]. #8. DVT prophylaxis: Lovenox. #9. CODE STATUS: Full code. Admission Evaluation Time spent evaluating chart, patient history, patient evaluation, care planning and discussion with specialists: 75 minutes. Charges/Coding Visit Charges Inpatient E&M: 81312 Init Hosp L3 12/13/22 1849 <Electronically signed by Sandy Solis MD> Cosigner Signature (if applicable): CC: Dr. Tj Willams MD; Dr. Sandy Solis MD~ Signed [facility] Work Phone: [phone]) 766-709704-08-2023 History and physical note Author Dr. Solis [facility] December 13, 2022 6:49pm Note Date/Time December 13, 2022 4:42 pm [facility] Medical Records Department [address] [place] [address] History & Physical Exam 12/13/22 1636 MR#: [id number] Acct: [id number] Name: ADDIS TORRES Rep #:[id number] : 2000 22 From: Sandy Solis MD PCP: Dr. Tj Willams MD Status: ADM IN Location: [facility] [place] [facility] [id number] HPI - General General Date of Admission: 12/13/22 Date of Service: 12/13/22 Chief Complaint: Intractable L sided abdominal pain, N/V HPI Narrative The patient is a 22 y/o F w/ PMHx: Hx Endometrial CA s/p hysterectomy, Hx PCOS, Hx ureteral strictures s/p stenting, HTN, Depression and Anxiety, Hx EtOH abuse reporting sobriety and chart noted Cannabis chronic use with history of cyclic vomiting syndrome who presents to the [facility] ED on 12/13/22 with history of recent discharge 12/12/22 secondary to persistent left-sided abdominal pain with intractable nausea and emesis with CT imaging at that time demonstrating mild wall thickening with possible cystitis with urine cultures consistent with pansensitive E. coli UTI with colony count greater than 100,000 discharged on ciprofloxacin 7-day additional course with since her discharge ongoing abdominaldiscomfort now she is reporting it is more severe with associated nausea and emesis prompting representation. Patient during her prior admission did report a mild amount of small blood with her emesis which was felt secondary to a Cindy-Sahni tear as she had significantly stable hemoglobins which were trended over time. Work-up in the ED included T98.4, heart rate 73, BP 144/88, respiratory rate 18, 99% on room air, CBC with WC 12, hemoglobin 12.8, [id number] with left shift, CMP with potassium 3.3, chloride 108, BUN/creat 11/1.04 otherwise hepatic profile not marked appearing, lipase 101. In the ED patient ministered 1 L normal saline, Zofran 4 mg IV x1, Ativan 5 mg IV x1, Levaquin 750mg IV x1, famotidine 20 mg IV, diphenhydramine 50 mg IV as well as dicyclomine 20 mg p.o. x1. Of note patient did have CT abdomen and pelvis on both 12/09/2022 and 12/11/2022. ED discussed case with GI Dr. Combs upon patient admission and decision for placement of Dobbhoff tube with attachment to low intermittent wallsuction and trial of Haldol given intractable nature. [facility] Medical History (Updated 12/13/22 @ 16:[address] Sandy Solis MD) Cyclic vomiting syndrome Depression Endometrial cancer History of alcohol abuse Hypertension Non-smoker PCOS (polycystic ovarian syndrome) Retained ureteral stent Ureter injury Ureteral stricture, left Home Medications ciprofloxacin HCl 500 mg tablet (Cipro) 500 mg PO BID #14 tabs 12/12/22 [Rx Last Taken Unknown] ondansetron 4 mg disintegrating tablet 4 mg PO Q8H PRN nausea and vomiting #14 tabs 12/12/22 [Rx Last Taken Unknown] Allergy/AdvReac Type Severity Reaction Status Date / Time ceftriaxone [From Rocephin] Allergy Hives Verified 12/13/22 10:41 promethazine [From Phenergan] Allergy Vomiting Verified 12/13/22 10:41 Ringer's solution,lactated Allergy Hives Verified 12/13/22 10:41 Family History (Updated 12/13/22 @ 18:[address] Sandy Solis MD) Father No problems noted. Mother Anxiety and depression GERD (gastroesophageal reflux disease) Surgical History History of hysterectomy for cancer History of renal stent Social History household members: family Smoking Status: Never smoker alcohol intake: former substance use type: marijuana and other details: No marijuana use in the last month ROS ROS Narrative Admission Review of Systems: CONSTITUTIONAL: No weight loss, fever, chills, + weakness or fatigue. HEENT: Eyes: No visual loss, blurred vision, double vision or yellow sclerae. Ears, Nose, Throat: No hearing loss, sneezing, congestion, runny nose or sore throat. SKIN: No rash or itching, lesions, wounds. CARDIOVASCULAR: No chest pain, chest pressure or chest discomfort, palpitations,edema, orthopnea, syncopal events. RESPIRATORY: No shortness of breath, cough or sputum, wheezing, hemoptysis. GASTROINTESTINAL: + anorexia, nausea, vomiting, abdominal pain, constipation. Nodiarrhea, melena, BRBPR. GENITOURINARY: No dysuria, frequency, urgency or retention. NEUROLOGICAL: No headache, dizziness, syncope, paralysis, ataxia, numbness or tingling in the extremities, focal weakness, change in bowel or bladder control,seizure. MUSCULOSKELETAL: + muscle, back pain, joint pain or stiffness. HEMATOLOGIC: No anemia, bleeding or bruising. LYMPHATICS: No enlarged nodes. No history of splenectomy. PSYCHIATRIC: + history of depression or anxiety. ENDOCRINOLOGIC: No reports of sweating, cold or heat intolerance. No polyuria orpolydipsia. ALLERGIES: No history of asthma, hives, eczema or rhinitis. Vital Signs Vital Signs Vital Signs: 12/13/22 10:42 12/13/22 12:58 Temperature 98.7 F 98.4 F Temperature Source Temporal Temporal Pulse Rate 73 73 Respiratory Rate 18 18 Blood Pressure 143/67 H 144/88 H Blood Pressure Mean 92 106 Pulse Ox 99 99 Oxygen Delivery Method Room Air Room Air Weight Weight: 213 lb 13.574 oz Body Mass Index (BMI) 31.6 Physical Exam Narrative Physical Examination: General: Awake, alert, oriented x 3 and cooperative, seated upright in the ED bed, fatigued and ill-appearing, notable for she was in Skin: Normal color, normal turgor, no icterus, no cyanosis except staged ecchymoses likely from previous IV sites and lab draws from recent hospitalization. HEENT: AT/NC, EOMI, PERRLA, dry MM, no carotid bruits or JVD noted. Lungs: Mildly diminished, greater bases, appropriate effort, no rales, ronchi orwheezing. Heart: Currently regular rate and rhythm; no gallop, rub audible. Abdomen: Soft, primarily discomfort to the left upper and lower quadrant but no rebound or guarding, no marked distention, mildly hyperactive bowel sounds, no obvious HSM but difficult exam given discomfort. Extremities: No cyanosis, clubbing, or edema. Neurological: Patient awake, alert, oriented as noted, cognitive function intact; pupils equally reactive to light and accommodation, cranial nerves II-XII grossly normal, moving all 4 extremities, no focal deficits, strength moderately global decrease secondary to current acute complaints Psychiatric: Affect appears fatigued, ill-appearing, currently not having emesis, no acute evidence of depressive or anxiety feelings but does have underlying history. Results Lab / Micro Data Result Diagrams: 12/13/22 11:50 12/13/22 11:50 Labs: Laboratory Results - last 24 hr 12/13/22 11:50: WBC 12.0 H, RBC 4.70, Hgb 12.8, Hct 39.7, MCV 84.5, MCH 27.2, MCHC 32.2, RDW Std Deviation 44.4 H, RDW Coeff of Roz 14.5, Plt Count 217, MPV 10.1, Immature Gran % (Auto) 0.300, Neut % (Auto) 83.2 H, Lymph % (Auto) 11.4 L,[place] % (Auto) 4.2, Eos % (Auto) 0.6, Baso % (Auto) 0.3, Absolute Neuts (auto) 10.0 H, Absolute Lymphs (auto) 1.37, Nucleated RBC % 0 12/13/22 11:50: Sodium 139, Potassium 3.3 L, Chloride 108 H, Carbon Dioxide 21.0, Anion Gap 10, BUN 11, Creatinine 1.04 H, Estim Creat Clear Calc 88.67, EstGFR (MDRD) Af Amer 85, Est GFR (MDRD) Non-Af 70, BUN/Creatinine Ratio 10.6, Glucose 94, Calcium 9.3, Total Bilirubin 0.60, AST 11 L, ALT 23, Alkaline Phosphatase 52, Total Protein 8.0, Albumin 4.1, Globulin 3.9, Albumin/Globulin Ratio 1.1, Lipase 101 Assessment & Plan Assessment/Plan (1) Abdominal pain: (2) Nausea & vomiting: PLAN: Plan The patient is a 22 y/o F w/ PMHx: Hx Endometrial CA s/p hysterectomy, Hx PCOS, Hx ureteral strictures s/p stenting, HTN, Depression and Anxiety, Hx EtOH abuse reporting sobriety and chart noted Cannabis chronic use with history of cyclic vomiting syndrome who presents to the [facility] ED on 12/13/22 with history of recent discharge 12/12/22 secondary to persistent left-sided abdominal pain with intractable nausea and emesis with CT imaging at that time demonstrating mild wall thickening with possible cystitis with urine cultures consistent with pansensitive E. coli UTI with colony count greater than 100,000 discharged on ciprofloxacin 7-day additional course with since her discharge ongoing abdominaldiscomfort now she is reporting it is more severe with associated nausea and emesis prompting representation. #1. Intractable Nausea and Emesis, abdominal diffuse pain, Multifactorial, possible secondary to Recent acute E. coli urinary tract infection and also possible component cyclic vomiting syndrome with cannbis usage: Will admit to [place], as noted patient with diagnosis recently with acute urinary tract infection with armendariz sensitivity, given intractable nausea and recurrent emesis will transition back to IV Levaquin and may need to be redosed today number needed given potential inability to tolerate any of her medications since discharge, will continue serial antiemetic regimen with trial haldol with scheduled regimenif assists and continue as needed Compazine, per GI recommendation planned initiate of DHT in the ED with LIWS to see if assists in calming her N/V, encourage avoidance of cannabis, UDS requested, maintain on IV PPI, will continue GI consultation initiated per ED. #2. Mild acute renal insufficiency: Admission BUN/creatinine 11/1.04, baseline creatinine primarily 0.5-0.8, will continue judicious hydration and repeat levelin a.m. #3. Hypokalemia: Admission K+ 3.3, magnesium level requested, supplementation given, repeat level in AM. #4. Hypertension: Noted history however per review of medications patient is not on any medication, BP currently above goal, potentially related with her acute presentation, continue to monitor and add regimen if appropriate, as needed IV hydralazine in the interim. #5. History endometrial cancer: Status post hysterectomy, considered in remission, encourage continued outpatient follow-up as previously arranged #6. Anxiety and depression: We will continue patient home sertraline regimen. #7. History of left ureteral injury: Patient with reported unfortunate left ureteral injury during hysterectomy secondary to underlying uterine cancer in 2020 with recent further intervention and reversal by Dr. Barahona in [facility]. #8. DVT prophylaxis: Lovenox. #9. CODE STATUS: Full code. Admission Evaluation Time spent evaluating chart, patient history, patient evaluation, care planning and discussion with specialists: 75 minutes. Charges/Coding Visit Charges Inpatient E&M: 47165 Init Hosp L3 12/13/22 1849 <Electronically signed by Sandy Solis MD> Cosigner Signature (if applicable): CC: Dr. Tj Willams MD; Dr. Sandy Solis MD~ Signed [facility] Work Phone: [phone]) 495-756304-07-2023 Hospital Discharge instructions Additional Instructions Date [facility]: [facility] Phone: [phone]) 305-888904-07-[address] Fatima [facility] December 12, 2022 9:23am Note Date/Time December 12, 2022 9:20 am [facility] Medical Records Department [address] [place] [address] Discharge Summary 12/12/22 0919 MR#: [id number] Acct: [id number] Name: ADDIS TORRES Rep #:[id number] : 2000 22 From: Daniel Fatima MD PCP: Care Physician,No Primary Status :ADM JAQUI Location: [place] [address] Providers Date of Admission: 12/11/22 Date of Discharge: 12/12/22 Primary Care Physician: No Primary Care Phys Reason For Visit: INTRACABLE NAUSEA AND VOMITING Diagnosis Discharge Diagnosis (1) Abdominal pain: Status: Acute Code(s): R10.9 - Unspecified abdominal pain (2) Intractable vomiting: Status: Acute Code(s): R11.10 - Vomiting, unspecified Plan Patient is a 22-year-old lady with history of cyclical vomiting syndrome presented with abdominal pain and intractable nausea vomiting 1. Abdominal pain with intractable nausea vomiting ? Initial imaging studies performed demonstrated mild wall thickening of the bladder possible cystitis. Urine cultures obtained 2 days prior positive for E.coli. Patient started on Levaquin 2. Dehydration ? Managed with IV fluid 3. History of endometrial CA ? Currently stable 4. DVT prophylaxis ? Low risk, encouraging ambulation Time spent in the patient's overall evaluation,decision-making process, review of diagnostic data, adjustment of management, discussion with other providers, nursing nursing and ancillary staff involved in patient's care documentation, 45Minutes Medications at Discharge Home Medications ciprofloxacin HCl 500 mg tablet (Cipro) 500 mg PO BID #14 tabs 12/12/22 ondansetron 4 mg disintegrating tablet 4 mg PO Q8H PRN nausea and vomiting #14 tabs 12/12/22 Hospital Course Summary of Care Provided Minutes Spent on Discharge: 45 Physical Exam Narrative GENERAL: cooperative HEENT: Atraumatic; normocephalic EYES; Anicteric, Normal Conjunctiva NECK; supple, normal thyroid, RESPIRATORY: Diminished to auscultation CARDIOVASCULAR: Regular S1 S2, GI: soft, normoactive bowel sounds, : No Renal angle tenderness; EXTREMITIES: No edema, no clubbing, MUSCULOSKELETAL: no muscle wasting NEURO: Awake; no lateralizing signs. SKIN: No Rash PSYCH; Flat affect Weight / BMI Weight Weight: 96.1 kg Body Mass Index (BMI) 31.2 ABG / Lab / Microbiology Data Result Diagrams: 12/12/22 06:27 12/12/22 06:27 Laboratory: Laboratory Results - last 24 hr 12/11/22 18:00: WBC 16.0 H, RBC 5.33, Hgb 14.1, Hct 43.7, MCV 82.0, MCH 26.5 L, MCHC 32.3, RDW Std Deviation 43.6, RDW Coeff of Roz 14.6, Plt Count 285, MPV 9.4, Immature Gran % (Auto) 0.300, Neut % (Auto) 81.0 H, Lymph % (Auto) 12.5 L, [place] % (Auto) 4.0, Eos % (Auto) 2.0, Baso % (Auto) 0.2, Absolute Neuts (auto) 12.9 H, Absolute Lymphs (auto) 1.99, Nucleated RBC % 0 12/11/22 18:00: Sodium 139, Potassium 3.5, Chloride 106, Carbon Dioxide 23.0, Anion Gap 10, BUN 11, Creatinine 1.02, Estim Creat Clear Calc 90.41, Est GFR (MDRD) Af Amer 87, Est GFR (MDRD) Non-Af 72, BUN/Creatinine Ratio 10.8, Glucose 104, Calcium 9.9, Total Bilirubin 0.30, AST 13 L, ALT 26, Alkaline Phosphatase 61, Total Protein 8.8 H, Albumin 4.5, Globulin 4.3 H, Albumin/Globulin Ratio 1.0, Lipase 131 12/12/22 06:27: WBC 9.7, RBC 4.49, Hgb 11.8 L, Hct 37.9, MCV 84.4, MCH 26.3 L, MCHC 31.1 L, RDW Std Deviation 45.0 H, RDW Coeff of Roz 14.7 H, Plt Count 194, MPV 9.9, Immature Gran % (Auto) 0.300, Neut % (Auto) 70.2 H, Lymph % (Auto) 21.0, [place] % (Auto) 7.9, Eos % (Auto) 0.3, Baso % (Auto) 0.3, Absolute Neuts (auto)6.8, Absolute Lymphs (auto) 2.05, Nucleated RBC % 0, Differential Comment SCANNED, Anisocytosis 1+ 12/12/22 06:27: Sodium 139, Potassium 3.7, Chloride 108 H, Carbon Dioxide 23.0, Anion Gap 8, BUN 10, Creatinine 0.74, Estim Creat Clear Calc 124.62, Est GFR (MDRD) Af Amer 124, Est GFR (MDRD) Non-Af 103, BUN/Creatinine Ratio 13.4, Glucose 89, Calcium 8.2 L, Phosphorus 3.4, Magnesium 1.9, Total Bilirubin 0.40, AST 12 L, ALT 21, Alkaline Phosphatase 47, Total Protein 7.2, Albumin 3.6, Globulin 3.6, Albumin/Globulin Ratio 1.0, TSH 1.78 Radiography Diagnostic Testing: Radiology Impression Abdomen/Pelvis CT 12/11/22 21:56 IMPRESSION: Mild wall thickening of the bladder could consider cystitis. Status post hysterectomy. Pykp-iu-ghfalffw constipation. Minimal diverticulosis no diverticulitis. No hydronephrosis. Electronically Signed: Danni Beckham MD at 22:16 EDT Reading Location ID and State: [address] [place] [address] Tel , Service support , D/C Instructions Discharge Diet: No restrictions Discharge Activity: Return to Normal Activity Call your doctor if you observe: Fever of 101 or Higher, Shortness of breath, Fainting spells and Chest pain Meaningful Use Info Meaningful Use Diagnoses (Choose all that apply): None applicable Discharge Plan Admission Admit Date/Time: 12/11/22 20:56 Attending Provider: Daniel Fatima Primary Care Provider: Care Physician,No Primary Consulting Providers: Ashley Zepeda Discharge Orders/Prescriptions Prescriptions: New ciprofloxacin HCl [Cipro] 500 mg tablet 500 mg PO BID Qty: 14 0RF ondansetron 4 mg tablet,disintegrating 4 mg PO Q8H PRN (Reason: nausea and vomiting) Qty: 14 0RF Referrals / Follow Up: Care Physician,No Primary [Primary Care Provider] - [facility] Doctor,Out of [Non-Staff] - Disposition Disposition (needs filled in before D/C Order can be placed): Home, Self Care Charges/Coding Visit Charges Inpatient E&M: 24643 Disch Hosp >30min 12/12/22 0923 <Electronically signed by Daniel Fatima MD> Cosigner Signature (if applicable): CC: Dr. Daniel Fatima MD; No Primary Care Physician~ Signed [facility] Work Phone: [phone]) 301-716404-07-[address] Fatima [facility] December 12, 2022 9:19am Note Date/Time December 12, 2022 7:44 am [facility] Medical Records Department [address] [place] [address] Progress Note - Hospitalist 12/12/22 0739 MR#: [id number] Acct: [id number] Name: ADDIS TORRES Rep #:[id number] : 2000 22 From: Daniel Fatima MD PCP: Care Physician,No Primary Status :ADM JAQUI Location: [place] [address] Reason for Visit Reason for Visit: Diagnoses Elevated white blood cell count, unspecified (12/11/22) Dehydration (12/11/22) Unspecified abdominal pain (12/11/22) Vomiting, unspecified (12/11/22) Nausea with vomiting, unspecified (12/11/22) Subjective Subjective Patient is a 22-year-old lady with history of cyclical vomiting syndrome presented with abdominal pain and intractable nausea vomiting Objective Data Objective Data Vital Signs: Vital Signs Temp Pulse Resp BP Pulse Ox O2 Del Method 98.5 F 67 16 121/77 H 97 Room Air 12/12/22 04:00 12/12/22 04:00 12/12/22 04:00 12/12/22 04:00 12/12/22 04:00 12/12/22 04:00 Oxygen Delivery Method Room Air Weight: 96.1 kg Body Mass Index (BMI) 31.2 Intake & Output: Intake and Output for Last 24 Hours 12/10/22 12/11/22 12/12/22 23:59 23:59 23:59 Intake Total 1120 / 1120 400 / 400 Output Total 100 / 100 Balance 1120 / 1120 300 / 300 Lab / Micro Data Result Diagrams: 12/12/22 06:27 12/12/22 06:27 Labs: Laboratory Results - last 24 hr 12/11/22 18:00: WBC 16.0 H, RBC 5.33, Hgb 14.1, Hct 43.7, MCV 82.0, MCH 26.5 L, MCHC 32.3, RDW Std Deviation 43.6, RDW Coeff of Roz 14.6, Plt Count 285, MPV 9.4, Immature Gran % (Auto) 0.300, Neut % (Auto) 81.0 H, Lymph % (Auto) 12.5 L, [place] % (Auto) 4.0, Eos % (Auto) 2.0, Baso % (Auto) 0.2, Absolute Neuts (auto) 12.9 H, Absolute Lymphs (auto) 1.99, Nucleated RBC % 0 12/11/22 18:00: Sodium 139, Potassium 3.5, Chloride 106, Carbon Dioxide 23.0, Anion Gap 10, BUN 11, Creatinine 1.02, Estim Creat Clear Calc 90.41, Est GFR (MDRD) Af Amer 87, Est GFR (MDRD) Non-Af 72, BUN/Creatinine Ratio 10.8, Glucose 104, Calcium 9.9, Total Bilirubin 0.30, AST 13 L, ALT 26, Alkaline Phosphatase 61, Total Protein 8.8 H, Albumin 4.5, Globulin 4.3 H, Albumin/Globulin Ratio 1.0,Lipase 131 12/12/22 06:27: WBC 9.7, RBC 4.49, Hgb 11.8 L, Hct 37.9, MCV 84.4, MCH 26.3 L, MCHC 31.1 L, RDW Std Deviation 45.0 H, RDW Coeff of Roz 14.7 H, Plt Count 194, MPV 9.9, Immature Gran % (Auto) 0.300, Neut % (Auto) 70.2 H, Lymph % (Auto) 21.0, [place] % (Auto) 7.9, Eos % (Auto) 0.3, Baso % (Auto) 0.3, Absolute Neuts (auto) 6.8, Absolute Lymphs (auto) 2.05, Nucleated RBC % 0, Differential CommentSCANNED, Anisocytosis 1+ 12/12/22 06:27: Sodium 139, Potassium 3.7, Chloride 108 H, Carbon Dioxide 23.0, Anion Gap 8, BUN 10, Creatinine 0.74, Estim Creat Clear Calc 124.62, Est GFR (MDRD) Af Amer 124, Est GFR (MDRD) Non-Af 103, BUN/Creatinine Ratio 13.4, Glucose 89, Calcium 8.2 L, Phosphorus 3.4, Magnesium 1.9, Total Bilirubin 0.40, AST 12 L, ALT 21, Alkaline Phosphatase 47, Total Protein 7.2, Albumin 3.6, Globulin 3.6, Albumin/Globulin Ratio 1.0, TSH 1.78 Radiography Diagnostic Testing: Radiology Impression Abdomen/Pelvis CT 12/11/22 21:56 IMPRESSION: Mild wall thickening of the bladder could consider cystitis. Status post hysterectomy. Jmfd-lp-sohjlsby constipation. Minimal diverticulosis no diverticulitis. No hydronephrosis. Electronically Signed: Danni Beckham MD at 22:16 EDT , Physical Exam Narrative GENERAL: cooperative HEENT: Atraumatic; normocephalic EYES; Anicteric, Normal Conjunctiva NECK; supple, normal thyroid, RESPIRATORY: Diminished to auscultation CARDIOVASCULAR: Regular S1 S2, GI: soft, normoactive bowel sounds, : No Renal angle tenderness; EXTREMITIES: No edema, no clubbing, MUSCULOSKELETAL: no muscle wasting NEURO: Awake; no lateralizing signs. SKIN: No Rash PSYCH; Flat affect Assessment & Plan Assessment/Plan (1) Abdominal pain: (2) Intractable vomiting: PLAN: Plan Patient is a 22-year-old lady with history of cyclical vomiting syndrome presented with abdominal pain and intractable nausea vomiting 1. Abdominal pain with intractable nausea vomiting ? Initial imaging studies performed demonstrated mild wall thickening of the bladder possible cystitis. Urine cultures obtained 2 days prior positive for E.coli. Patient started on Levaquin 2. Dehydration ? Managed with IV fluid 3. History of endometrial CA ? Currently stable 4. DVT prophylaxis ? Low risk, encouraging ambulation Time spent in the patient's overall evaluation,decision-making process, review of diagnostic data, adjustment of management, discussion with other providers, nursing nursing and ancillary staff involved in patient's care documentation, 45Minutes Charges/Coding Visit Charges Inpatient E&M: 45251 Subs Hosp L2 12/12/22 0919 <Electronically signed by Daniel Fatima MD> Cosigner Signature (if applicable): CC: ~ Signed [facility] Work Phone: [phone]) 196-923004-06-2023 History and physical note Author Dr. Zepeda [facility] December 11, 2022 9:29pm Note Date/Time December 11, 2022 9:05 pm [facility] Medical Records Department [address] [place] [address] H&P Exam - Hospitalist 12/11/222101 MR#: [id number] Acct: [id number] Name: ADDIS TORRES Rep #:[id number] : 2000 22 From: Ashley Zepead DO PCP: Care Physician,No Primary Status :ADM JAQUI Location: [facility] AF344-6 HPI - General General Date of Admission: 12/11/22 Date of Service: 12/11/22 Chief Complaint: Intractable nausea and vomiting HPI Narrative ADDIS TORRES, is a 22 F who presented to the emergency department at [facility] on 12/11/2022 with intractable nausea and vomiting and left- sided abdominal pain. Her symptoms started approximately 3 days ago. She was in the ER on 12/09/2022 for similar symptoms and possibly had hematemesis however had a stable hemoglobin and Cindy-Sahni tear was suspected from retching. Shehas had no hematemesis since that time. A urinalysis was obtained and was unremarkable. She had no urological symptoms. CT of the abdomen pelvis was performed and was overall unremarkable. She does have history of marijuana use however reported she had not used any marijuana in over a month. It was felt atthat time she had cyclical vomiting syndrome and was discharged home after improvement. Patient went home and slept pretty much of the day yesterday and woke up last evening and tried to eat some chicken noodle soup after which she started vomiting again. She states that her left-sided abdominal pain is the main issue and this seems to be making her vomit more. She did ask for Dilaudidby name in the emergency department. She denies any urinary symptoms. Denies fever or chills. Vital signs on presentation today showed a temperature of 98.0, heart rate was initially 145 but has improved to 93 on last measurement, blood pressure was initially documented as 61/27 however repeat was 138/91 and she has been stable since that time, respiratory rate 16 and oxygen saturations are 100% on room air. I suspect the low blood pressure was spurious result. CBC shows a leukocytosis with a white count of 16,000 and a left shift at 81%. This has worsened in the last 24 hours. CBC was otherwise unremarkable. Chemistry panelwas overall unremarkable with normal BUN and serum creatinine. Liver function is normal. Alk phos is normal. Bilirubin is normal. Lipase was 131. She was given antiemetics and IV fluids emergency department and request for admission was made. I have ordered a repeat CT of the abdomen pelvis given the fact that her symptoms have worsened since her previous CT. [facility] Medical History Alcohol abuse Cancer Depression Endometrial cancer Hydronephrosis Hypertension Menorrhagia Non-smoker Retained ureteral stent Ureter injury Ureteral stricture, left Allergy/AdvReac Type Severity Reaction Status Date / Time ceftriaxone [From Rocephin] Allergy Hives Verified 12/09/22 18:33 promethazine [From Phenergan] Allergy Vomiting Verified 12/09/22 18:33 Ringer's solution,lactated Allergy Hives Verified 12/09/22 18:33 Family History Father No problems noted. Mother No problems noted. Surgical History History of hysterectomy for cancer History of renal stent Social History (Updated 12/11/22 @ 21:[address] Ashley Zepeda DO) household members: family Smoking Status: Never smoker alcohol intake: former substance use type: marijuana and other details: No marijuana use in the last month ROS Constitutional Constitutional: Reports anorexia and weakness; Denies change in weight, chills, fatigue, fever(s), malaise, night sweats or other Eyes Eyes: Denies blurry vision, change in eye color, change in vision, discharge from eye(s), double vision, erythema, eye pain, loss of vision or other ENT HEENT: Denies abnormal hearing, dysphagia, ear pain, epistaxis, headache(s), hearing loss, nasal congestion, nasal discharge, post nasal drip, sinus pressure, sore throat or other Cardiovascular Cardiovascular: Denies chest pain, claudication, dyspnea on exertion, edema, lightheadedness, orthopnea, palpitations, paroxysmal nocturnal dyspnea, rapid heart rate, syncope or other Respiratory/Chest Respiratory/Chest: Denies cough, dyspnea, excessive phlegm production, hemoptysis, productive cough, shortness of breath at rest, shortness of breath with exertion, wheezing or other Gastrointestinal Gastrointestinal: Reports abdominal pain, nausea and vomiting; Denies coffee ground emesis, constipation, diarrhea, dyspepsia, hematemesis, hematochezia, loose stools, melena or other Genitourinary Genitourinary: Denies burning urination, difficulty urinating, dysuria, hematuria, nocturia, urinary frequency, urinary hesitancy, urinary incontinence,urinary urgency or other Musculoskeletal Musculoskeletal: Denies arthralgias, back pain, joint pain, joint stiffness, joint swelling, myalgias, neck pain or other Neurologic Neurologic: Denies abnormal gait, abnormal speech, confusion, disequilibrium, dizziness, focal weakness, headache(s), numbness, paresthesias, seizure-like activity, seizures, syncope, tingling, tremor(s) or other Psychiatric Psychiatric: Denies anxiety, depression, homicidal ideation, suicidal ideation or other Hematologic/Lymphatic Hematologic/Lymphatic: Denies anemia, easy bleeding, easy bruising, lymphadenopathy or other Allergic/Immunologic Allergic/Immunologic: Denies rhinitis, hives, eczemia, asthma or other Vital Signs Vital Signs Vital Signs: 12/11/22 16:59 12/11/22 17:13 12/11/22 20:39 Temperature 98.0 F Temperature Source Temporal Pulse Rate 145 H 113 H 106 H Respiratory Rate 16 18 18 Blood Pressure 61/27 L 138/91 H 142/102 H Blood Pressure Mean 38 106 115 Pulse Ox 100 100 98 Oxygen Delivery Method Room Air Room Air Room Air Weight Weight: 96.3 kg Body Mass Index (BMI) 31.3 Physical Exam Const alert, oriented x3 and average body habitus; Negative for no apparent distress Constitutional Narrative: Obese, ill-appearing, young, white female, sitting up in bed retching, at bedside, appears nontoxic General Appearance: cooperative HEENT normocephalic, head/scalp atraumatic, hearing grossly normal bilaterally and moist oral mucous membranes HEENT Narrative: Mallampati 2, no thrush Eyes PERRL, EOMs intact bilaterally and conjunctivae normal Eyes Narrative: No scleral icterus Neck no lymphadenopathy, supple and no JVD Neck Narrative: Trachea midline, no thyroid enlargement Resp normal respiratory effort, no retractions, no use of accessory muscles and clearto auscultation bilaterally Auscultation: Negative for rales, rhonchi or wheezes Cardio regular rhythm, S1 normal heart sound, S2 normal heart sound, no murmurs, no rub, no gallops, no clicks and no JVD Cardio Narrative: Slightly tachycardic GI Negative for non-tender GI Narrative: Bowel sounds are slightly hypoactive, abdomen is nondistended and normal to inspection, tender on the left side of abdomen diffusely, no distention Palpation: tender LLQ and LUQ; Negative for guarding Extremity no clubbing, cyanosis or edema Extremity Narrative: Pedal pulses are 2+ Skin no rashes or lesions noted, no wounds, skin turgor normal, no jaundice, no petechiae and no mottling Neuro oriented x3, CN's II-XII intact bilaterally, moves all extremities and no focal motor deficits Speech: speech normal Psych Psych Narrative: Affect is flat which would be appropriate for her current situation Mood & Affect: anxious Results Lab / Micro Data Result Diagrams: 12/11/22 18:00 12/11/22 18:00 Labs: Laboratory Results - last 24 hr 12/11/22 18:00: WBC 16.0 H, RBC 5.33, Hgb 14.1, Hct 43.7, MCV 82.0, MCH 26.5 L, MCHC 32.3, RDW Std Deviation 43.6, RDW Coeff of Roz 14.6, Plt Count 285, MPV 9.4, Immature Gran % (Auto) 0.300, Neut % (Auto) 81.0 H, Lymph % (Auto) 12.5 L, [place] % (Auto) 4.0, Eos % (Auto) 2.0, Baso % (Auto) 0.2, Absolute Neuts (auto) 12.9 H, Absolute Lymphs (auto) 1.99, Nucleated RBC % 0 12/11/22 18:00: Sodium 139, Potassium 3.5, Chloride 106, Carbon Dioxide 23.0, Anion Gap 10, BUN 11, Creatinine 1.02, Estim Creat Clear Calc 90.41, Est GFR (MDRD) Af Amer 87, Est GFR (MDRD) Non-Af 72, BUN/Creatinine Ratio 10.8, Glucose 104, Calcium 9.9, Total Bilirubin 0.30, AST 13 L, ALT 26, Alkaline Phosphatase 61, Total Protein 8.8 H, Albumin 4.5, Globulin 4.3 H, Albumin/Globulin Ratio 1.0, Lipase 131 Assessment & Plan Assessment/Plan (1) Abdominal pain: (2) Nausea & vomiting: (3) Intractable vomiting: (4) Leukocytosis: (5) Dehydration: PLAN: Plan Left-sided abdominal pain/intractable nausea and vomiting -Etiology is unclear at this time however patient does have history of cyclical vomiting syndrome -It appears overall she has been doing well since her ureter was reconnected -UA was unremarkable yesterday -CT with IV contrast done yesterday and showed only small foci of air in the urinary bladder and no other acute findings however symptoms have worsened sinceyesterday therefore we will repeat CT of the abdomen pelvis--> would like to give oral contrast however patient will not tolerate given severe nausea vomiting -We will utilize as needed Haldol and Compazine for antiemetics--> Zofran has been ineffective -Start scopolamine patch -Clear liquid diet for now and advance as tolerated -IV fluids at 100 cc/h with normal saline--> would prefer LR however patient hasan allergy to LR -Patient states she is having bowel movements and passing flatus -We will utilize Protonix 40 mg IV push daily Leukocytosis -Worsened since yesterday and left shift is present -Could potentially be due to dehydration -Check CT of the abdomen pelvis -UA done on 12/10/2022 was unremarkable for any signs of infection -Repeat CBC in a.m. Dehydration -Renal function is stable -IV fluids with normal saline at 100 cc/h -Continue to monitor renal function and electrolytes History of left ureteral injury -Patient was undergoing total hysterectomy due to uterine cancer in early 2020 at which time she had a left ureteral injury -Was recently reversed by Dr. Barahona at [facility] -Clinically doing well History of endometrial cancer -Stable DVT prophylaxis -Lovenox daily CODE STATUS -Full code Charges/Coding Visit Charges Inpatient E&M: 49836 Init Hosp L2 12/11/222128 <Electronically signed by Ashley Zepeda DO> Cosigner Signature (if applicable): CC: Dr. Ashley Zepeda DO; No Primary Care Physician~ Signed [facility] Work Phone: [phone]) 979-914704-06-[address] Liu [facility] December 11, 2022 9:00pm Note Date/Time December 11, 2022 5:57 pm [facility] Medical Records Department [address] [place] [address] Emergency Department Summary 12/11/22 MR#: [id number] Acct: [id number] Name: ADDIS TORRES Rep #:[id number] : 2000 22 From: Moose Liu MD PCP: Care Physician,No Primary Status :REG ER Location: ED HPI HPI - GI History of Present Illness Chief Complaint: Abd Pain Informant: patient Abdominal Pain/Flank Pain Onset: Days (2-3) Context: Gradual Onset Timing: Continuous Quality: Aching Location: - (left side abd) Current Severity: Severe Maximum Severity: Severe Worsened by: Food Relieved by: Food Nausea/Vomiting/Emesis GI Symptom: Positive for Nausea and Vomiting Onset: Days (2-3) Quality: Negative for Blood streaks, Coffee ground or Hematemesis Severity: Severe Diarrhea/Melena/Hematochezia GI Symptom: Negative for Diarrhea, Melena or Hematochezia Associated Symptoms Associated Symptoms: Negative for Dysuria, Frequency, Hematuria or Urgency Narrative Narrative: Patient was seen here 2 nights ago for severe left-sided abdominal pain and intractable vomiting, she presents for the same symptoms. She states it is justas severe now as it was when she was here in the ER before and she has no new symptoms including urinary symptoms. She states it started after she ate some sloppy Bogdan's with hamburger, her significant other ate this as well and he did not get any symptoms. She has been seen here before for vomiting. She apparently has a history of smoking marijuana but has not smoked any recently. She denies any other drugs recently. She had chicken noodle soup tonight, the because things do seem to get worse and she has been vomiting uncontrollably andshe states that the main issue is the pain, which seems to make her then vomit more. She has been having bowel movements, they are normal, she has been urinating and it is also normal. She denies any pain in her back. She denies any trouble breathing or other chest symptoms. She denies any fevers or chills. No travel out of the area recently or ingestion of any other suspicious foods. Initially was she was seen in the ED 2 nights ago, she had a small amount of hematemesis. She has seen no more blood in any of her emesis since then. [facility] Medical History Alcohol abuse Cancer Depression Endometrial cancer Hydronephrosis Hypertension Menorrhagia Non-smoker Retained ureteral stent Ureter injury Ureteral stricture, left Allergy/AdvReac Type Severity Reaction Status Date / Time ceftriaxone [From Rocephin] Allergy Hives Verified 12/09/22 18:33 promethazine [From Phenergan] Allergy Vomiting Verified 12/09/22 18:33 Ringer's solution,lactated Allergy Hives Verified 12/09/22 18:33 Family History Father No problems noted. Mother No problems noted. Surgical History History of hysterectomy for cancer History of renal stent Social History household members: family Smoking Status: Never smoker alcohol intake: former substance use type: does not use ROS ROS ED Constitutional Constitutional ED: Denies chills or fever(s) Eyes Eyes: Denies change in vision or diplopia ENT ENT ED: Denies rhinorrhea or sore throat Cardiovascular Cardiovascular: Denies chest pain or palpitations Respiratory/Chest Respiratory/Chest: Denies cough or dyspnea Gastrointestinal Gastrointestinal: Reports abdominal pain, nausea and vomiting; Denies diarrhea, hematemesis, hematochezia or melena Genitourinary Genitourinary ED: Denies dysuria or hematuria Musculoskeletal Musculoskeletal: Denies back pain or neck pain Integumentary Denies abscess or rash Neurologic Neurologic: Denies headache(s), paresthesias or weakness Psychiatric Psychiatric: Reports anxiety; Denies suicidal thoughts EXAM Physical Exam Const Vital Signs: 12/11/22 16:59 12/11/22 17:13 12/11/22 20:39 Temperature 98.0 F Temperature Source Temporal Pulse Rate 145 H 113 H 106 H Respiratory Rate 16 18 18 Blood Pressure 61/27 L 138/91 H 142/102 H Blood Pressure Mean 38 106 115 Pulse Ox 100 100 98 Oxygen Delivery Method Room Air Room Air Room Air Positive well nourished and well developed Constitutional Narrative: Patient continuously dry heaving over an emesis bag, there is a very small amount of nonbilious nonbloody emesis within it, much smaller than the amount ofvomiting she is doing. General Appearance ED: well developed and NAD HEENT Reports moist mucous membranes normocephalic and atraumatic Eyes PERRL and EOMs intact bilaterally Neck full ROM and supple General: Negative for tenderness Resp normal respiratory effort and clear to auscultation bilaterally Cardio regular rate, regular rhythm and no murmurs Rate: tachycardic GI non-distended GI Narrative: Normal bowel sounds present. Tender throughout the left side of the abdomen, mildly in the suprapubic and epigastric areas, nontender on the right side. No guarding or rebound tenderness. Auscultation: normoactive bowel sounds Palpation: soft Back/Spine no CVA tenderness General Back: other FROM Extremity normal to inspection General Extremety ED: Negative for edema, pulses abnormal or tenderness General Extremity: Negative for edema or pulses abnormal Neuro oriented x3, CN's II-XII intact bilaterally and no sensory deficits noted Sensorium / Orientation: awake and alert Motor Exam: strength 5/5 throughout Psych thought process normal Psych Narrative: Extremely anxious. Skin no rashes or lesions noted and no wounds MDM MDM MDM Narrative Medical decision making narrative: Other than a slightly higher leukocytosis than she had 2 days ago, the rest of her other labs are unremarkable. I reviewed the ED visit from 2 days ago. The physician included cyclic vomiting in the differential diagnosis. In further questioning of the patient, she and her significant other admit that she used to be in here all of the time for abdominal pain and vomiting but this is the first time in the last couple months since she had her ureter surgery, that thishas occurred, starting 2 days ago. I initially treated her with cyclic vomitingorder set, in addition to fentanyl. She was additionally given Reglan and more fentanyl. She continues to vomit and is unable to keep anything down. She is asking for Dilaudid saying that is what they usually give me. I advised her that we typically do not treat nonverifiable pain here with Dilaudid by happy toadmit her as long as she understands that. She is. History & Record Review Additional record(s) reviewed:: Prior ED visit and Prior labs (And imaging including CT) Lab Data Attestation: I reviewed the patient's lab results. Labs: Laboratory Results - last 24 hr 12/11/22 12/11/22 18:00 18:00 WBC 16.0 H RBC 5.33 Hgb 14.1 Hct 43.7 MCV 82.0 MCH 26.5 L MCHC 32.3 RDW Std Deviation 43.6 RDW Coeff of Roz 14.6 Plt Count 285 MPV 9.4 Immature Gran % (Auto) 0.300 Neut % (Auto) 81.0 H Lymph % (Auto) 12.5 L [place] % (Auto) 4.0 Eos % (Auto) 2.0 Baso % (Auto) 0.2 Absolute Neuts (auto) 12.9 H Absolute Lymphs (auto) 1.99 Nucleated RBC % 0 Sodium 139 Potassium 3.5 Chloride 106 Carbon Dioxide 23.0 Anion Gap 10 BUN 11 Creatinine 1.02 Estim Creat Clear Calc 90.41 Est GFR (MDRD) Af Amer 87 Est GFR (MDRD) Non-Af 72 BUN/Creatinine Ratio 10.8 Glucose 104 Calcium 9.9 Total Bilirubin 0.30 AST 13 L ALT 26 Alkaline Phosphatase 61 Total Protein 8.8 H Albumin 4.5 Globulin 4.3 H Albumin/Globulin Ratio 1.0 Lipase 131 Discharge Plan Triage Chief Complaint: Abd Pain ED Provider: Moose Liu Dx/Rx/DC Orders Clinical Impression: Intractable vomiting, Abdominal pain Primary Care Provider: Care Physician,No Primary Referrals: [facility] Doctor,Out of [Non-Staff] - Disposition Disposition: Acute Care Hospital [facility] What to do if you have Problems For any increased pain, shortness of breath, bleeding, nausea or vomiting, chestpain, or any unexpected problems, contact your Primary Care Provider. Call [facility] ([phone]) or report to the closest Emergency Room. Call 911 if necessary. 12/11/22 2100 <Electronically signed by Moose Liu MD> Cosigner Signature (if applicable): CC: No Primary Care Physician ~ Signed [facility] Work Phone: [phone]) 934-801202-01-[address] eHnriquez [facility] October 08, 2022 9:58pm Note Date/Time October 08, 2022 9 :54pm [facility] Medical Records Department [address] [place] [address] Emergency Department Summary 10/08/22 MR#: [id number] Acct: [id number] Name: ADDIS TORRES Rep #:[id number] : 2000 22 From: Jamey Henriquez MD PCP: NOT,DEFINED Status:REG ER Location: ED HPI History of Present Illness Chief Complaint: Dental Detail of Chief Complaint: Dental pain x1 week Informant: patient and family Onset/Context/Timing Onset: Weeks Context: Sudden Onset Timing: Continuous and Waxes and wanes Quality: Pain Location: Upper and lower left molar Current Severity: Mild Worsened by: Cold and hot liquids Relieved by: NSAIDs and Topicals Associated Symptoms Assocated Symptom - Dental: cold sensitivity and hot sensitivity; Negative for fever, jaw swelling or face swelling Narrative Narrative: Patient is a 22-year-old female who presents with dental pain. She states she called [facility]. She was told there would be a 2-month wait. She reported chills. She denies fever. She denies a traumatic fever, heart murmur,SBE, IV drug use or being immune suppressed. She does list allergy to third-generation cephalosporin with hives. She denies myalgias, arthralgias or joint swelling. She denies rash. She reports change in voice. She also reports she cannot open her mouth completely. There is been no drooling. Prior similar symptoms: Yes Recent Illness/Hospitalization: No PFSH PFSH Medical History Alcohol abuse Cancer Depression Endometrial cancer Hydronephrosis Hypertension Menorrhagia Non-smoker Retained ureteral stent Ureter injury Ureteral stricture, left Home Medications acetaminophen 325 mg tablet (Tylenol) 650 mg PO Q4H PRN PRN Fever, pain 1-06/16 #0 tabs 07/12/21 [Rx Last Taken Unknown] famotidine 20 mg tablet 20 mg PO BID 30 days #60 tabs 07/12/21 [Rx Last Taken Unknown] ondansetron 4 mg disintegrating tablet 4 mg PO Q6H PRN nausea and vomiting #10 tabs 11/11/21 [Rx Last Taken Unknown] polyethylene glycol 3350 17 gram/dose oral powder (Miralax) 17 g PO BID #238 grams 07/21/21 [Rx Last Taken Unknown] sennosides 8.6 mg-docusate sodium 50 mg tablet (Senna-S) 1 tab-cap PO QHS #30 tabs 07/21/21 [Rx Last Taken Unknown] haloperidol 2 mg tablet 2 mg PO Q8H PRN nausea and vomiting #20 tabs 09/30/21 [Rx Last Taken Unknown] sertraline 50 mg tablet (Zoloft) 50 mg PO DAILY 09/30/21 [History Last Taken Unknown] mirtazapine 15 mg tablet mg 10/14/21 [History Last Taken Unknown] olanzapine 5 mg tablet mg 10/14/21 [History Last Taken Unknown] olanzapine 5 mg tablet mg 10/14/21 [History Last Taken Unknown] hydrocodone-acetaminophen 5-325mg 5mg-325mg 1 tab PO Q6H PRN pain 3 days #10 tabs 12/10/21 [Rx Last Taken Unknown] ondansetron 4 mg disintegrating tablet 4 mg PO Q8H PRN nausea and vomiting #10 tabs 12/10/21 [Rx Last Taken Unknown] sulfamethoxazole 800 mg-trimethoprim 160 mg tablet (Bactrim DS) 1 tab PO BID #20tabs 12/10/21 [Rx Last Taken Unknown] clindamycin HCl 300 mg capsule (Cleocin HCl) 300 mg PO Q6H #28 CAPSULES 10/08/22[Rx Last Taken Unknown] hydrocodone-acetaminophen 5-325mg 5mg-325mg 1 tab PO Q6H PRN PRN Pain 3 days #10TABLETS 10/08/22 [Rx Last Taken Unknown] naproxen 500 mg tablet 500 mg PO BID #14 tabs 10/08/22 [Rx Last Taken Unknown] Allergy/AdvReac Type Severity Reaction Status Date / Time ceftriaxone [From Rocephin] Allergy Hives Verified 10/08/22 19:09 promethazine [From Phenergan] Allergy Vomiting Verified 10/08/22 19:09 Ringer's solution,lactated Allergy Hives Verified 10/08/22 19:09 Family History Father No problems noted. Mother No problems noted. Surgical History History of hysterectomy for cancer History of renal stent Social History household members: family Smoking Status: Never smoker alcohol intake: former substance use type: does not use ROS ROS ED Constitutional Constitutional ED: Reports chills; Denies fever(s), subjective, sweats or weightloss Eyes Eyes: Denies blurry vision or change in vision ENT ENT ED: Reports other Details: Poor dentition and dental pain and HPI ; Denies ear pain, rhinorrhea or sore throat Cardiovascular Cardiovascular: Denies chest pain or palpitations Respiratory/Chest Respiratory/Chest: Denies cough, dyspnea or dyspnea on exertion Gastrointestinal Gastrointestinal: Denies nausea or vomiting Musculoskeletal Musculoskeletal: Denies arthralgias, back pain, myalgias or neck pain Hematologic/Lymphatic Hematologic/Lymphatic: Denies easy bleeding or easy bruising EXAM Physical Exam Const Vital Signs: 10/08/22 19:09 Temperature 97.4 F L Temperature Source Temporal Pulse Rate 98 Respiratory Rate 18 Blood Pressure 133/101 H Blood Pressure Mean 111 Pulse Ox 93 Oxygen Delivery Method Room Air Positive well nourished, well developed and obese Constitutional Narrative: Patient is holding a pack of ice to the left side of her jaw. General Appearance ED: well developed; Negative for NAD Nutritional Appearance: obese HEENT HEENT Narrative: There is no evidence of facial cellulitis. There is no facial swelling. There is no trismus. Uvula is midline. Posterior pharynx unremarkable. Patient has poor dentition with dental caries numerous teeth and discoloration. There is noTMJ tenderness. There is no preauricular lymphadenopathy. Lips appear normal. There is no gum swelling. Eyes PERRL and EOMs intact bilaterally General Eye ED: Negative for pale conjunctiva or scleral icterus Neck no lymphadenopathy, supple and no JVD Neck Narrative: Trachea is midline. There is no inspiratory expiratory stridor. General: tenderness; Negative for normal visual inspection, anterior neck swelling or submandibular swelling Chest Wall inspection of chest normal and palpation of chest normal Resp normal respiratory effort, no retractions and clear to auscultation bilaterally Cardio regular rate, regular rhythm, S1 normal heart sound and S2 normal heart sound Neuro oriented x3, CN's II-XII intact bilaterally, moves all extremities, no focal motor deficits and no sensory deficits noted Sensorium / Orientation: alert Psych mental status grossly normal Skin no rashes or lesions noted and no wounds MDM MDM MDM Narrative Medical decision making narrative: Patient history is consistent with both reversible and irreversible pulpitis. She has significant dental pathology. There is no periodontal abscess that is amenable to I&D. There is no clinical findings of SBE i.e. splinter hemorrhages, [place]ay lesions heart murmur that is new. In light of patient's allergies she was cleared treated with Naprosyn, hydrocodone and clindamycin. Patient was given dental sheet. Since patient does not have a fever. There is no evidence of cellulitis laboratory studies were not obtained. Review of prior records reveals patient has not been seen in the past for dental pain and has been seen for obstructing ureterolithiasis, abnormal vaginal bleeding. Discharge Plan Triage Chief Complaint: Dental Other Complaint: Headache ED Provider: Jamey Henriquez Dx/Rx/DC Orders Clinical Impression: Abscess, apical, Symptomatic irreversible pulpitis, Symptomatic reversible pulpitis, Dental caries extending into dentine, Gingival and periodontal disease Instructions: ED Tooth Abscess Prescriptions: New hydrocodone-acetaminophen [hydrocodone-acetaminophen] 5-325 mg tablet 1 tab PO Q6H PRN PRN (Reason: Pain) 3 Days Qty: 10 0RF clindamycin HCl [Cleocin HCl] 300 mg capsule 300 mg PO Q6H Qty: 28 0RF naproxen 500 mg tablet 500 mg PO BID Qty: 14 0RF No Action acetaminophen [Tylenol] 325 mg Tablet 650 mg PO Q4H PRN PRN (Reason: Fever, pain -06/16) Qty: 0 0RF famotidine 20 mg Tablet 20 mg PO BID 30 Days Qty: 60 0RF ondansetron 4 mg tablet,disintegrating 4 mg PO Q6H PRN (Reason: nausea and vomiting) Qty: 10 0RF sennosides-docusate sodium [Senna-S] 8.6-50 mg tablet 1 tab-cap PO QHS Qty: 30 0RF polyethylene glycol 3350 [Miralax] 17 gram/dose powder 17 g PO BID Qty: 238 0RF Rx Instructions: Discontinue or take daily depending on need once bowel movements have been initiated sertraline [Zoloft] 50 mg Tablet 50 mg PO DAILY haloperidol 2 mg tablet 2 mg PO Q8H PRN (Reason: nausea and vomiting) Qty: 20 0RF olanzapine 5 mg tablet olanzapine 5 mg tablet mirtazapine 15 mg tablet hydrocodone-acetaminophen 5-325 mg tablet 1 tab PO Q6H PRN (Reason: pain) 3 Days Qty: 10 0RF ondansetron 4 mg tablet,disintegrating 4 mg PO Q8H PRN (Reason: nausea and vomiting) Qty: 10 0RF sulfamethoxazole-trimethoprim [Bactrim DS] 800-160 mg tablet 1 tab PO BID Qty: 20 0RF Primary Care Provider: NOT,DEFINED Referrals: NOT,DEFINED [Primary Care Provider] - Dentist,Your [STAFF PHYSICIAN] - As soon as possible Disposition Disposition: Home, Self Care What to do if you have Problems For any increased pain, shortness of breath, bleeding, nausea or vomiting, chestpain, or any unexpected problems, contact your Primary Care Provider. Call [facility] ([phone]) or report to the closest Emergency Room. Call 911 if necessary. 10/08/222157 <Electronically signed by Jamey Henriquez MD> Cosigner Signature (if applicable): CC: DEFINED NOT ~ Signed [facility] Work Phone: 1(867) 568-148902-04-2022 [facility]01-13-2022 [facility]01-12-2022 History of Present illness Narrative* Ernie Rodriguez MD - 09/18/2021 6:15 AM EST UROLOGY PROGRESS NOTE PATIENT NAME: Addis Torres DATE OF : 2000 ADMISSION DATE: 09/14/2021 10:40 AM TODAY'S DATE: 09/18/2021 Subjective Patient with two episodes of nausea and emesis overnight. Reports ongoing LLQ pain. Ambulating to restroom. Passed void trial 09/17. States that it has been several days since her last bowel movement. Objective VS: BP (!) 136/92 Pulse 94 Temp 99 F (37.2 C) (Temporal) Resp 16 Ht 5' 9 (1.753 m) Wt 170 lb (77.1 kg) LMP 11/09/2020 (Approximate) SpO2 96% BMI 25.10 kg/m Vitals: 09/18/21 0516 BP: (!) 136/92 Pulse: 94 Resp: 16 Temp: 99 F (37.2 C) SpO2: 96% I & O - 24hr: Intake/Output Summary (Last 24 hours) at 09/18/2021 0615 Last data filed at 09/18/2021 0413 Gross per 24 hour Intake 1400 ml Output 400 ml Net 1000 ml Physical Exam: General: Neck: Resp: Abdomen: No acute distress Supple Normal effort, no respiratory distress Soft, non-tender, nondistended : No CVA TTP bilaterally. Ocasio removed. Skin: Skin color, texture, turgor normal, incisions C/D/I Labs and Imaging Studies Labs: CBC: Recent Labs 09/16/21 0539 09/17/21 0051 09/18/21 004 WBC 5.2 4.7 4.8 HGB 10.3* 9.4* 9.7* HCT 32.4* 29.7* 31.1* MCV 77.5* 76.8* 77.0* PLT 181 178 192 BMP: Recent Labs 09/16/21 0539 09/17/21 0051 09/18/21 004 NA 135 134* 138 K 3.4* 3.4* 3.3* CL 101 103 105 CO2 22 20* 20* BUN 6* 5* <2* CREATININE 0.61 0.63 0.57 Magnesium: Lab Results Component Value Date MG 2.1 09/14/2021 Phosphate: Lab Results Component Value Date PHOS 4.6 09/07/2021 PT/INR: No results for input(s): PROTIME, INR in the last 72 hours. U/A: Lab Results Component Value Date LEUKOCYTESUR 250 09/14/2021 WBCUA 3-5 09/14/2021 RBCUA 51-100 09/14/2021 BACTERIA Few 09/14/2021 GLUCOSEU Normal 09/14/2021 Urine Culture: Component Value Date/Time LABURIN No growth (<1,000 CFU/ml). 09/14/2021 1310 Imaging Studies: CT Cystogram (09/17/21): IMPRESSION: 1. No extravasation seen. CT Abdomen Pelvis With Contrast (09/12/21): IMPRESSION: 1. Apparent postsurgical change or residual, including subcutaneous gas in left anterior abdominal wall and also minimal pneumoperitoneum in the upper abdomen. Clinical correlation and follow-up as indicated. 2. Minimal free pelvic fluid without discrete abscess, may also represent postsurgical change or residual. 3. Indwelling left ureteral stent, with mild dilatation of left renal collecting system, similar to comparison. Diffuse left periureteral fat stranding, new in the interval. 4. Constipation. Assessment and Plan ASSESSMENT: 21 year old female s/p robotic left ureteroureterotomy with insertion of antegrade ureteral stent on 09/09/21 who presented with uncontrolled nausea and emesis. PLAN: -No plan for Urologic surgical intervention at this time -Morphine discontinued 09/17, patient currently on Oxycodone 5-10mg PO oral solution q6h PRN -Dulcolax suppository ordered -CT Cystogram: no extravasation or leak seen -Continue IVF at 100mL/hr -Nausea control PRN, patient prefers Compazine -Continue Bactrim as inpatient -LVX for DVT prophylaxis -Anticipate possible discharge later today if pain, nausea, and constipation improved -Please page resident with questions or concerns Ernie Rodriguez MD PGY-2, Urology 09/18/2021 * Nely Avitia RN - 09/17/2021 8:59 AM EST Ocasio remv'd; dtv 1500 * Ernie Rodriguez MD - 09/17/2021 6:21 AM EST UROLOGY PROGRESS NOTE PATIENT NAME: Addis Torres DATE OF : 2000 ADMISSION DATE: 09/14/2021 10:40 AM TODAY'S DATE: 09/17/2021 Subjective Reports ongoing LLQ pain. Denies bowel movement overnight. Nausea and emesis well controlled this AM. Denies fevers and chills. Requesting to remain in hospital for pain control. Does not feel that she would be able to control her pain at home. Objective VS: BP 108/73 Pulse 82 Temp 97.9 F (36.6 C) (Oral) Resp 18 Ht 5' 9 (1.753 m) Wt 170 lb (77.1 kg) LMP 11/09/2020 (Approximate) SpO2 98% BMI 25.10 kg/m Vitals: 09/17/21 0550 BP: 108/73 Pulse: 82 Resp: 18 Temp: 97.9 F (36.6 C) SpO2: 98% I & O - 24hr: Intake/Output Summary (Last 24 hours) at 09/17/2021 0621 Last data filed at 09/17/2021 0459 Gross per 24 hour Intake 1500 ml Output 1000 ml Net 500 ml Physical Exam: General: Neck: Resp: Abdomen: No acute distress Supple Normal effort, no respiratory distress Soft, mild LLQ TTP, non-distended : Mild left CVA TTP, no right CVA TTP. No suprapubic tenderness. 16F Ocasio draining yellow urine. Skin: Skin color, texture, turgor normal, incisions C/D/I Labs and Imaging Studies Labs: CBC: Recent Labs 09/14/21191709/16/21 0539 09/17/21 0051 WBC 8.0 5.2 4.7 HGB 11.2* 10.3* 9.4* HCT 35.3 32.4* 29.7* MCV 76.2* 77.5* 76.8* PLT 256 181 178 BMP: Recent Labs 09/14/21191709/16/21 0539 09/17/21 005 NA 135 135 134* K 2.8* 3.4* 3.4* CL 94* 101 103 CO2 28 22 20* BUN 7* 6* 5* CREATININE 0.54 0.61 0.63 Magnesium: Lab Results Component Value Date MG 2.1 09/14/2021 Phosphate: Lab Results Component Value Date PHOS 4.6 09/07/2021 PT/INR: No results for input(s): PROTIME, INR in the last 72 hours. U/A: Lab Results Component Value Date LEUKOCYTESUR 250 09/14/2021 WBCUA 3-5 09/14/2021 RBCUA 51-100 09/14/2021 BACTERIA Few 09/14/2021 GLUCOSEU Normal 09/14/2021 Urine Culture: Component Value Date/Time LABURIN No growth (<1,000 CFU/ml). 09/14/2021 1310 Imaging Studies: CT Cystogram (09/17/21): IMPRESSION: 1. No extravasation seen. CT Abdomen Pelvis With Contrast (09/12/21): IMPRESSION: 1. Apparent postsurgical change or residual, including subcutaneous gas in left anterior abdominal wall and also minimal pneumoperitoneum in the upper abdomen. Clinical correlation and follow-up as indicated. 2. Minimal free pelvic fluid without discrete abscess, may also represent postsurgical change or residual. 3. Indwelling left ureteral stent, with mild dilatation of left renal collecting system, similar to comparison. Diffuse left periureteral fat stranding, new in the interval. 4. Constipation. Assessment and Plan ASSESSMENT: 21 year old female s/p robotic left ureteroureterotomy with insertion of antegrade ureteral stent on 09/09/21 who presented with uncontrolled nausea and emesis. PLAN: -No acute Urologic surgical intervention at this time -Pain management consulted: recommend multimodal pain regimen including Acetaminophen 650mg PO q4h,Lidocaine patches, Oxycodone 5-10mg PO oral solution q6h PRN -CT Cystogram: no extravasation or leak seen -Maintain IVF at 100mL/hr -Nausea control PRN with Compazine -Continue Bactrim as inpatient -Lovenox for DVT prophylaxis -Void trial this AM (order placed) -Anticipate possible discharge 09/18 if pain controlled on PO medication Ernie Rodriguez MD PGY-2, Urology 09/17/2021 * January - 09/16/2021 3:09 PM EST [facility] ADMISSION MEDICATION RECONCILIATION Date: 09/16/21 Room:[facility]7/[id number] Patient Name: Addis Torres Allergies: Promethazine-phenylephrine and Lactated ringers Age: 21 y.o. Sex: female Note: New information has been obtained regarding the patient s medications. The medication reconciliation has been updated to reflect this. Please consider making these changes/additions if appropriate: Recommendations: Patient has current orders of docusate 100mg (1 cap po BID) and sennosides- docusate 8.6-50mg (2 tabs po BID). Recommend to discontinue docusate 100mg (1 cap po BID). Duplicate therapy. Please page/call with questions. Date: 09/16/21 Time: 3:12 PM May Dayanara Caceres Candidate 2021 * Kimberly Blakely, MS, RD, LD - 09/16/2021 1:59 PM EST Comprehensive Nutrition Assessment Type and Reason for Visit: Initial (DT referral for poor po intake; weight loss; nausea and vomiting) Nutrition Recommendations/Plan: PATIENT MEETS AND/ASPEN CRITERIA FOR SEVERE MALNUTRITION 1. Per MNT protocol, modify diet to Regular. Noted diet changed today to Carb Control (5) however patient without history of DM and recent BG level of 65 mg/dL. 2. Patient declines oral nutritional supplements at this time 3. Suggest document po intake in nursing flow sheet 4. RD continue to monitor overall nutritional status and follow up weekly Nutrition Assessment: Patient with PMHx of endometrial adenocarcinoma s/p hysterectomy with BSO 12/26 complicated by left ureteral injury resulting in left ureteral stricutre requiring left ureteral stent insertion and stent changes. Patient has been seen numerous times on consult during her course for nausea, emesis, and concern for pyelonephritis with most recent cultures being negative repeatedly. At one time her nausea and emesis required TPN administration. She has undergone workup for thisincluding EGD. Patient s/p robotic left ureteroureterotomy with insertion of antegrade ureteral stent on 09/09/21 admitted with chronic uncontrolled nausea and vomiting and concern for urine leak on CTat outside facility. Patient lying in bed sleeping, awakens slightly to name call. Patient kept eyes closed during interview and replied with 1 word answers. Patient reports still with nausea, vomiting and decreased appetite. Has not ordered any meals yet today. Per notes, patient has had multiple visits (ED and MD) with nausea and vomiting with notable weight loss since March 2021. RD obtained bed scale weight of 174#. Patient declines any ONS at this time. Malnutrition Assessment: Malnutrition Status: Severe malnutrition Context: Chronic Illness Findings of the 6 clinical characteristics of malnutrition: Energy Intake: 7 - 75% or less estimated energy requirements for 1 month or longer Weight Loss: 7 - Greater than 10% over 6 months Body Fat Loss: No significant body fat loss Muscle Mass Loss: No significant muscle mass loss Fluid Accumulation: No significant fluid accumulation Supervisor [employer] Strength: Not Performed Estimated Daily Nutrient Needs: Energy (kcal): 8772-3947 (25-30); Weight Used for Energy Requirements: [place] Protein (g): 66-79 (1.0-1.2); Weight Used for Protein Requirements: [place] Fluid (ml/day): per MD Nutrition Related Findings: +bowel sounds; +nausea; Sachin 20; +I&O; no edema noted Wounds: None Current Nutrition Therapies: Carb Control Restriction: 5 carb choices (75 gm/meal) Anthropometric Measures: Height: 5' 9 (175.3 cm) Current Body Weight: 174 lb (78.9 kg) Admission Body Weight: 170 lb (77.1 kg) (no method indicated) Usual Body Weight: 194 lb (88 kg) (03/22/21 MD office visit) [place] Body Weight: 145 lbs; % [place] Body Weight 120 % BMI: 25.7 Nutrition Diagnosis: Severe malnutrition,In context of chronic illness related to inadequate protein- energy intake as evidenced by poor intake prior to admission,weight loss greater than or equal to 10% in 6 months Inadequate oral intake related to altered GI function as evidenced by nausea,vomiting,poor intake prior to admission Nutrition Interventions: Food and/or Nutrient Delivery: Modify Current Diet Nutrition Education/Counseling: No recommendation at this time Coordination of Nutrition Care: Continue to monitor while inpatient Goals: Patient consume >50% meals Nutrition Monitoring and Evaluation: Behavioral-Environmental Outcomes: None Identified Food/Nutrient Intake Outcomes: Food and Nutrient Intake Physical Signs/Symptoms Outcomes: Biochemical Data,GI Status,Fluid Status or Edema,Weight,Skin,Nausea or Vomiting Discharge Planning: Too soon to determine Contact: pager [phone] * Gela Ochoa MD - 09/16/2021 6:24 AM EST UROLOGY PROGRESS NOTE PATIENT NAME: Addis Torres DATE OF : 2000 ADMISSION DATE: 09/14/2021 10:40 AM TODAY'S DATE: 09/16/2021 Subjective Reports ongoing nausea and emesis overnight, improved with Compazine. Requesting Morphine this AM for left flank pain as she vomited her oxycodone Denies ambulating due to catheter Objective VS: BP 119/88 Pulse 92 Temp 99 F (37.2 C) (Temporal) Resp 18 Ht 5' 9 (1.753 m) Wt 170 lb(77.1 kg) LMP 11/09/2020 (Approximate) SpO2 99% BMI 25.10 kg/m Vitals: 09/16/21 0546 BP: 119/88 Pulse: 92 Resp: 18 Temp: 99 F (37.2 C) SpO2: 99% I & O - 24hr: Intake/Output Summary (Last 24 hours) at 09/16/2021 0624 Last data filed at 09/16/2021 0537 Gross per 24 hour Intake 2104 ml Output 2000 ml Net 104 ml Physical Exam: General: Neck: Resp: Abdomen: No acute distress Supple Normal effort, no respiratory distress Soft, generalized TTP, non-distended : 16F Ocasio catheter with minimal yellow urine output. Moderate left CVA TTP. No right CVA TTP. Skin: Skin color, texture, turgor normal, incisions C/D/I Labs and Imaging Studies Labs: CBC: Recent Labs 09/14/211917 WBC 8.0 HGB 11.2* HCT 35.3 MCV 76.2* PLT 256 BMP: Recent Labs 09/14/211917 NA 135 K 2.8* CL 94* CO2 28 BUN 7* CREATININE 0.54 Magnesium: Lab Results Component Value Date MG 2.1 09/14/2021 Phosphate: Lab Results Component Value Date PHOS 4.6 09/07/2021 PT/INR: No results for input(s): PROTIME, INR in the last 72 hours. U/A: Lab Results Component Value Date LEUKOCYTESUR 250 09/14/2021 WBCUA 3-5 09/14/2021 RBCUA 51-100 09/14/2021 BACTERIA Few 09/14/2021 GLUCOSEU Normal 09/14/2021 Urine Culture: Component Value Date/Time LABURIN No growth (<1,000 CFU/ml). 09/14/2021 1310 Imaging Studies: CT Cystogram (09/15): ordered CT Abdomen Pelvis With Contrast (09/12/21): IMPRESSION: 1. Apparent postsurgical change or residual, including subcutaneous gas in left anterior abdominal wall and also minimal pneumoperitoneum in the upper abdomen. Clinical correlation and follow-up as indicated. 2. Minimal free pelvic fluid without discrete abscess, may also represent postsurgical change or residual. 3. Indwelling left ureteral stent, with mild dilatation of left renal collecting system, similar to comparison. Diffuse left periureteral fat stranding, new in the interval. 4. Constipation. Assessment and Plan ASSESSMENT: 21 year old female s/p robotic left ureteroureterotomy with insertion of antegrade ureteral stent on 09/09/21 who presents with uncontrolled nausea and emesis PLAN: -No acute Urologic surgical intervention at this time -CT Cystogram demonstrates no leak -Continue IVF at 100mL/hr -Scheduled Zofran with PRN Compazine -KUB: left ureteral stent in position -Maintain Ocasio catheter to straight drain; will require void trial prior to discharge -Urine culture: no growth -Continue Bactrim as inpatient -Lovenox for DVT prophylaxis -All patient questions answered this AM; please page resident with questions or concerns Dispo: discharge once pain and nausea controlled Collin Ansari MD Urology, PGY-3 09/16/2021 6:24 AM Patient was seen and evaluated. The history and physical has been reviewed. The pertinent findings from the history of present illness, past medical history, family history, social history, review of systems, and physical exam havebeen noted and confirmed that are unchanged. Discussed with the urology resident. Agree with assessment and plan Reviewed CT cystogram results with patient- WNL- No bladder leak- no urinary leak. Pain management consulted. * Gela Ochoa MD - 09/15/2021 7:21 AM EST UROLOGY PROGRESS NOTE PATIENT NAME: Addis Torres DATE OF : 2000 ADMISSION DATE: 09/14/2021 10:40 AM TODAY'S DATE: 09/15/2021 Subjective Reports ongoing nausea and emesis overnight, improved with Compazine. Requesting Morphine this AM for left flank pain. Denies fevers and chills. Objective VS: BP (!) 155/103 Pulse 115 Temp 98 F (36.7 C) (Oral) Resp 18 Ht 5' 9 (1.753 m) Wt 170 lb (77.1 kg) LMP 11/09/2020 (Approximate) SpO2 100% BMI 25.10 kg/m Vitals: 09/15/21 0632 BP: (!) 155/103 Pulse: 115 Resp: 18 Temp: 98 F (36.7 C) SpO2: 100% I & O - 24hr: Intake/Output Summary (Last 24 hours) at 09/15/2021 0721 Last data filed at 09/15/2021 0559 Gross per 24 hour Intake 2200 ml Output 900 ml Net 1300 ml Physical Exam: General: Neck: Resp: Abdomen: No acute distress Supple Normal effort, no respiratory distress Soft, generalized TTP, non-distended : 16F Ocasio catheter with minimal yellow urine output. Moderate left CVA TTP. No right CVA TTP. Skin: Skin color, texture, turgor normal, incisions C/D/I Labs and Imaging Studies Labs: CBC: Recent Labs 09/12/21219909/14/211917 WBC 6.6 8.0 HGB 12.1 11.2* HCT 37.2 35.3 MCV 76.0* 76.2* PLT 268 256 BMP: Recent Labs 09/12/21219909/14/211917 NA 136 135 K 2.7* 2.8* CL 94* 94* CO2 30 28 BUN 6* 7* CREATININE 0.61 0.54 Magnesium: Lab Results Component Value Date MG 2.1 09/14/2021 Phosphate: Lab Results Component Value Date PHOS 4.6 09/07/2021 PT/INR: No results for input(s): PROTIME, INR in the last 72 hours. U/A: Lab Results Component Value Date LEUKOCYTESUR 250 09/14/2021 WBCUA 3-5 09/14/2021 RBCUA 51-100 09/14/2021 BACTERIA Few 09/14/2021 GLUCOSEU Normal 09/14/2021 Urine Culture: Component Value Date/Time LABURIN No growth (<1,000 CFU/ml). 09/04/20211942 Imaging Studies: CT Cystogram (09/15): ordered CT Abdomen Pelvis With Contrast (09/12/21): IMPRESSION: 1. Apparent postsurgical change or residual, including subcutaneous gas in left anterior abdominal wall and also minimal pneumoperitoneum in the upper abdomen. Clinical correlation and follow-up as indicated. 2. Minimal free pelvic fluid without discrete abscess, may also represent postsurgical change or residual. 3. Indwelling left ureteral stent, with mild dilatation of left renal collecting system, similar to comparison. Diffuse left periureteral fat stranding, new in the interval. 4. Constipation. Assessment and Plan ASSESSMENT: 21 year old female s/p robotic left ureteroureterotomy with insertion of antegrade ureteral stent on 09/09/21 who presents with uncontrolled nausea and emesis with concern for urine leak on CT imaging. PLAN: -No acute Urologic surgical intervention at this time -CT Cystogram ordered to assess bladder and possible urine leak -Continue IVF at 100mL/hr -Scheduled Zofran with PRN Compazine -KUB: left ureteral stent in position -Maintain Ocasio catheter to straight drain; will require void trial prior to discharge -UA: leukocytes (250), RBC (51-100/HPF), few bacteria -Urine culture: in process -Continue Bactrim as inpatient -Lovenox for DVT prophylaxis -All patient questions answered this AM; please page resident with questions or concerns Ernie Rodriguez MD PGY-2, Urology 09/15/2021 Patient was seen and evaluated. The history and physical has been reviewed. The pertinent findings from the history of present illness, past medical history, family history, social history, review of systems, and physical exam havebeen noted and confirmed that are unchanged. Discussed with the urology resident. Agree with assessment and plan CT cystogram results reviewed with patient. I reviewed CT ( rpt pending). NO leak. No extravasation). Stent in place. Pt with cont N/V. Cont compazine ,Zofran * Cindi Mccollum RN - 09/15/2021 4:59 AM EST Patient refused Miralax and stool softener this corporate development intern. She stated that she does not need it and does not feel constipated. * Heriberto Feliciano RN - 09/14/2021 6:52 PM EST Patients bed is in low locked position. Patient was educated on how to use call light. Patient was educated on PRN pain meds. No further action taken at this time. documented in this [facility] Work Phone: 1(480) 998-683801-05-2022 [facility]01-05-2022 History of Present illness Narrative* Yamilet Woods RN - 09/11/2021 2:29 PM EST Discharge instructions discussed with pt, verbalizes understanding. PIV removed, pt dressing, and will be taken to discharge area with all belongings and medications * Alen Dailey RN - 09/11/2021 5:32 AM EST Checked on patient multiple times during the night, even when IV was beeping- patient would briefly open her eyes and not voice any complaints or ask for pain medicine. Went in this morning for blood draw patient states she did not sleep all night and that she is in 10/10 pain. Patient medicated. Explained to patient that she needs to get up and ambulate more this morning so she can be discharged home today. * Alen Dailey RN - 09/10/2021 9:00 PM EST SCD cuffs on patient and machine turned off * Pricila Turner RN - 09/10/2021 3:30 PM EST Okay from Dr. Castro to give dilaudid dose since patient is nauseous and cannot take PO pills. * Pricila Turner RN - 09/10/2021 3:00 PM EST Patient has emesis x1 and threw up all previously given pain pills and benedryl dose. Awaiting callback from Dr. Castro. Family at bedside. * Pricila Turner RN - 09/10/2021 2:28 PM EST Patient refusing phenergan dose stating that she is allergic to it. * Pricila Turner RN - 09/10/2021 1:55 PM EST Patient having emesis x1. Zofran dose given within the hour. Dr. Casas notified. * Pricila Turner RN - 09/10/2021 7:41 AM EST Ocasio removed per physician order. Patient tolerated well. * Nellie Wen MD - 09/10/2021 6:24 AM EST Department of Urology Daily Progress Note Patient Name: Addis Torres Date of : 2000 Admission Date: 09/09/2021 10:59 AM Today's Date: 09/10/2021 Subjective: - C/o significant pain to LLQ this am, tearful - Per RN patient sleeping but if awoken c/o pain - States combination of Tylenol, oxycodone, Morphine does not work, only dilaudid works - Ambulated halls last night - States has not ate anything, drank some but c/o nausea, no emesis - No flatus or BM Current Medications: Current Facility-Administered Medications Medication Dose Route Frequency Provider Last Rate Last Admin OLANZapine (ZYPREXA) tablet 5 mg 5 mg Oral Nightly Nellie Wen MD 5 mg at 09/09/212234 pantoprazole (PROTONIX) tablet 40 mg 40 mg Oral QAM AC Nellie Wen MD polyethylene glycol (GLYCOLAX) packet 17 g 17 g Oral BID Nellie Wen MD 17 g at 09/09/212236 0.9 % sodium chloride infusion IntraVENous Continuous Nellie Wen MD 100 mL/hr at 09/09/211939New Bag at 09/09/211939 sodium chloride flush 0.9 % injection 5-40 mL 5-40 mL IntraVENous 2 times per day Nellie Wen MD sodium chloride flush 0.9 % injection 5-40 mL 5-40 mL IntraVENous PRN Nellie Wen MD 0.9 % sodium chloride infusion 25 mL IntraVENous PRN Nellie Wen MD enoxaparin (LOVENOX) injection 40 mg 40 mg SubCUTAneous Daily Nellie Wen MD acetaminophen (TYLENOL) tablet 1,000 mg 1,000 mg Oral Q6H Nellie Wen MD 1,000 mg at 09/10/21 0023 ondansetron (ZOFRAN-ODT) disintegrating tablet 4 mg 4 mg Oral Q8H PRN Nellie Wen MD Or ondansetron (ZOFRAN) injection 4 mg 4 mg IntraVENous Q6H PRN Nellie Wen MD 4 mg at 09/10/21 0500 oxyCODONE (ROXICODONE) immediate release tablet 5 mg 5 mg Oral Q4H PRN Nellie Wen MD 5 mg at 09/10/21 0437 Or oxyCODONE (ROXICODONE) immediate release tablet 10 mg 10 mg Oral Q4H PRN Nellie Wen MD 10 mg at 09/09/21 194 morphine injection 2 mg 2 mg IntraVENous Q2H PRN Nellie Wen MD 2 mg at 09/10/21 0449 Objective: Vitals: 09/09/21 1745 09/09/21181109/09/21181409/09/211929 BP: 123/79 (!) 118/90 121/83 130/85 Pulse: 80 84 84 107 Resp: 20 11 10 13 Temp: 97.6 F (36.4 C) 98.4 F (36.9 C) TempSrc: Temporal Temporal SpO2: 99% 98% 98% 98% Weight: Height: Intake/Output: Intake/Output Summary (Last 24 hours) at 09/10/2021 0624 Last data filed at 09/10/2021 0439 Gross per 24 hour Intake 2997 ml Output 1455 ml Net 1542 ml Physical Exam: General: Alert, in no acute distress Head: Normocephalic, atraumatic Neck: supple, trachea is midline, no obvious masses Respiratory: normal effort, no audible wheezes Cardiovascular: regular pulse and no cyanosis Musculoskeletal: moving all extremities, normal tone Skin: warm and dry Psych: normal mood and affect, oriented Abdomen: soft, nondistended, cries with palpation of abdomen bilaterally, incisions c/d/i, BENI scantSS : Ocasio draining yellow Lab Results Component Value Date WBC 9.5 09/10/2021 HGB 12.4 09/10/2021 HCT 40.0 09/10/2021 MCV 78.8 (L) 09/10/2021 PLT 361 09/10/2021 Lab Results Component Value Date NA 136 09/07/2021 K 3.2 09/07/2021 CL 105 09/07/2021 CO2 20 09/07/2021 BUN 6 09/07/2021 CREATININE 0.53 09/07/2021 GLUCOSE 95 09/07/2021 CALCIUM 8.7 09/07/2021 Urinalysis: Lab Results Component Value Date APPEARANCE Clear 09/04/2021 COLORU Colorless 09/04/2021 LABSPEC 1.008 09/04/2021 LABPH 6.5 09/04/2021 NITRU Negative 09/04/2021 GLUCOSEU Normal 09/04/2021 KETUA 40 09/04/2021 UROBILINOGEN Normal 09/04/2021 BILIRUBINUR Negative 09/04/2021 OCBU 0.2 09/04/2021 Urine Culture: Component Value Date/Time LABURIN No growth (<1,000 CFU/ml). 09/04/20211942 Radiology: Assessment: 21 y.o. female POD #1 s/p robotic left ureteroureterostomy, left ureteral stent placement Plan: - Advance diet to regular - Dc ocasio this am - Pain control, change morphine to dilaudid - Ambulate - Ancef x24 hrs - Monitor BENI output after ocasio out, only 25cc out overnight - IS - DVT ppx: Lvx - Possible Dc later today Nellie Wen MD PGY-5 Urology Chief Resident - Please page traffic control specialist resident with questions * Alen Dailey RN - 09/10/2021 6:18 AM EST Patient sleeping, appears comfortable at this time * Alen Dailey RN - 09/10/2021 5:50 AM EST Patient still states she is having pain and the only thing that will help her is dilaudid. Patient appears more comfortable now that she is back to bed. Patient does not want to order any food for breakfast at this time. * Alen Dailey RN - 09/10/2021 5:40 AM EST Patient up walking in the [place] with help of nurse, patient to bathroom-unable to have bowel movement. Patient helped back to bed. * Alen Dailey RN - 09/10/2021 4:51 AM EST Patient hysterically crying because she states the pain is so bad, medicated patient with pain pilland patient is crying stating that they don't work for her. Requesting dose of IV pain medicine, will medicate patient * Alen Dailey RN - 09/10/2021 1:00 AM EST Patient sleeping, appears comfortable at this time * Alen Dailey RN - 09/09/2021 10:59 PM EST Patient refused to ambulate with asked by nurse at 1900 and 2130 * Michelle Brooks RN - 09/09/2021 11:[address] Barahona here to see pt and speak about the surgery. Consent signed. * Michelle Brooks RN - 09/09/2021 11:15 AM EST Pt nauseated and in pain level 10 per patient. Called into the OR to talk to Dr. Barahona because treatment consent states robotic and pt states open. Dr. Barahona will be by shortly to speak with pt and clear up consent. SHOVEL HANDLE ASSEMBLER aware of pt's pain and will address once surgical consent is signed. * Polly Alonso RN - 09/05/2021 2:20 PM EST Pt is in hospital; Crystal at Dr. Barahona's office notified. Also notified that if surgery is to proceed, that surgery orders need placed. documented in this [facility] Work Phone: 1(540) 443-775801-05-2022 Hospital course Narrative* Denton Brown MD - 09/11/2021 1:27 PM EST 48 Hour Discharge Summary Note Patient ID: Addis Torres [id number] 21 y.o. 2000 Admit date: 09/09/2021 Discharge date: 09/11/2021 Admitting Physician: Dr. Barahona Discharge Physician: Dr. Barahona Consults: none Admission Diagnoses: Ureteral stricture, left [N13.5] Procedure: Robotic Assisted Laparoscopic Left Ureteroureterotomy, Ureterotomy with Insertion of Antegrade Stent Treatment: surgery: See above Pertinent Findings and Labs noted during admission: see Epic Significant Diagnostic Studies: N/A Discharge Diagnoses: Ureteral stricture, left [N13.5] Discharged Condition: stable Homegoing Instructions: no driving while on analgesics and no heavy lifting for 4-6 weeks. Recommended Follow-up: Follow up with Dr. Barahona in 1-2 weeks Diet: regular diet Discharge Medications: Medication List START taking these medications docusate sodium 100 MG capsule Commonly known as: COLACE Take 1 capsule by mouth 2 times daily as needed for Constipation oxyCODONE-acetaminophen 5-325 MG per tablet Commonly known as: Percocet Take 1 tablet by mouth every 6 hours as needed for Pain for up to 7 days. Intended supply: 3 days. Take lowest dose possible to manage pain CONTINUE taking these medications naproxen 500 MG tablet Commonly known as: NAPROSYN Take 1 tablet by mouth 2 times daily (with meals) for 14 days OLANZapine 5 MG tablet Commonly known as: ZYPREXA Take 1 tablet by mouth nightly ondansetron 4 MG disintegrating tablet Commonly known as: ZOFRAN-ODT Take 1 tablet by mouth 3 times daily as needed for Nausea or Vomiting pantoprazole 40 MG tablet Commonly known as: PROTONIX take 1 tablet by mouth every morning before breakfast polyethylene glycol 17 g packet Commonly known as: GLYCOLAX Take 17 g by mouth 2 times daily Where to Get Your Medications These medications were sent to [address] [phone] - [phone] [place] [id number] docusate sodium 100 MG capsule oxyCODONE-acetaminophen 5-325 MG per tablet Disposition: home documented in this [facility] Work Phone: 1(546) 596-913701-03-2022 Hospital Discharge instructions* Instructions* Denton Brown MD - 09/09/2021 PATIENT DISCHARGE INSTRUCTIONS C O N F I D E N T I A L I N F O R M A T I O N The following is a brief overview of your hospitalization. Some of the information contained on this summary may be confidential. This information should be kept in your records and should be shared with your regular doctor. Patient Name: Addis Torres Account #: @[email or web address]@ Admission Date: 09/09/2021 Date of Discharge: 09/09/2021 Time: 12 N Discharge Diagnosis: Left ureteral stricture Procedure: Robotic left ureteroureterostomy, left ureteral stent placement Discharge Diet: Resume pre-op diet Treatment/wound care: Keep incision clean and dry. May shower and pat dry. No ointments to incision. If you have steri-strips in place, you may remove them as they become detached. No tub/swimming/ocean x 8 weeks Additional Instructions: Light meals until normal bowel movement Drink plenty of fluids. You may experience drainage from your prior drain site. If it is a large amount please call us. Patient is to refrain from any heavy lifting for 8 weeks time. Wt limit of 10 lbs. General Ocasio instructions Keep ocasio off tension. Light meals until normal bowel movement Drink plenty of fluids. Anticipate some mild blood in urine, anticipate some urine to flow around the ocasio with bowel movements. Please call office: if no drainage from ocasio x 4 hrs despite adequate fluid intake Large amount of urine passing around ocasio and none thru ocasio Significant bleeding present with large blood clots Follow-up: Follow Up Appointment(s) with Dr. Barahona REFER TO ATTACHED MEDICATION RECONCILIATION SHEET FOR HOME MEDICATIONS LIST Medication Reconciliation Form Reviewed with patient and family documented in this [facility] Work Phone: 1(183) 101-329601-01-2022 [facility]12-31-2021 History of Present illness Narrative* Chance Martinez MD - 09/06/2021 7:13 AM EST Images from the original note were not included. Med Team Progress Note Addis Torres : 2000(21 y.o.) Date: September 06, 2021 Med Team: Rubén Attending: Justo Chief Complaint: Intractable Nausea and Vomiting Subjective: - Overnight, Patient was having 10/10 left groin pain. Was given her PRN pain medications early in the day. Was also having symptoms of nausea and unable to tolerate PO. Given one time dose 0.5mg IV dilaudid for pain and 10mg of IV compazine and 2mg of Haldol for nausea - Currently, patient's nausea has improved slightly. She is tolerating fluids PO. States her pain is still 10/10 however she is laying still in bed with a flat affect. - Plan to continue with Uro procedure on 09/09/21; patient consented this morning for open procedure. Agree with the above. Patient reports continued pain but states that her nausea is improved with Compazine. She has been able to tolerate some liquids this AM and states that she will try to advance her diet throughout the day. Currently asking for IV Dilaudid, however states that she understands why anti- inflammatory agents are preferred. Review of Systems Constitutional: Negative for chills and diaphoresis. HENT: Negative for rhinorrhea. Eyes: Negative for visual disturbance. Respiratory: Negative for cough, shortness of breath and wheezing. Cardiovascular: Negative for chest pain, palpitations and leg swelling. Gastrointestinal: Positive for abdominal pain, constipation and nausea (slightly improved). Negative for abdominal distention and diarrhea. Genitourinary: Negative for difficulty urinating, dysuria, hematuria, urgency and vaginal discharge. S/p hysterectomy Musculoskeletal: Negative for arthralgias and myalgias. Skin: Negative for rash. Neurological: Negative for speech difficulty, weakness and headaches. Scheduled Meds: acetaminophen 650 mg Oral Q4H pantoprazole 40 mg Oral QAM AC sodium chloride flush 5-40 mL IntraVENous 2 times per day enoxaparin 40 mg SubCUTAneous Daily sennosides-docusate sodium 1 tablet Oral Daily OLANZapine 5 mg Oral Nightly Continuous Infusions: sodium chloride sodium chloride 100 mL/hr at 09/04/21 1645 Objective: BP (!) 148/93 Pulse 81 Temp 97.8 F (36.6 C) (Temporal) Resp 16 Ht 5' 9 (1.753 m) Wt 169 lb 14.4 oz (77.1 kg) LMP 11/09/2020 (Approximate) SpO2 100% BMI 25.09 kg/m Physical Exam Vitals reviewed. Constitutional: General: She is not in acute distress. Appearance: Normal appearance. She is well-developed. She is ill-appearing. She is not toxic-appearing. Comments: Patient laying in bed. Not in acute distress HENT: Right Ear: Hearing and external ear normal. Left Ear: Hearing and external ear normal. Nose: Nose normal. Mouth/Throat: Mouth: Mucous membranes are moist. Pharynx: Oropharynx is clear. Eyes: General: Lids are normal. Extraocular Movements: Extraocular movements intact. Conjunctiva/sclera: Conjunctivae normal. Neck: Thyroid: No thyromegaly or thyroid tenderness. Cardiovascular: Rate and Rhythm: Normal rate and regular rhythm. Heart sounds: Normal heart sounds, S1 normal and S2 normal. No murmur heard. No friction rub. No gallop. Pulmonary: Effort: Pulmonary effort is normal. No respiratory distress. Breath sounds: Normal breath sounds. No wheezing. Chest: Breasts: Right: No supraclavicular adenopathy. Left: No supraclavicular adenopathy. Abdominal: General: There is no distension. Palpations: Abdomen is soft. Tenderness: There is abdominal tenderness (LLQ- very tender to palpation). There is left CVA tenderness. Musculoskeletal: Cervical back: Full passive range of motion without pain and neck supple. Right lower leg: No edema. Left lower leg: No edema. Lymphadenopathy: Cervical: No cervical adenopathy. Upper Body: Right upper body: No supraclavicular adenopathy. Left upper body: No supraclavicular adenopathy. Skin: General: Skin is warm and dry. Findings: No rash. Neurological: Mental Status: She is alert and oriented to person, place, and time. Sensory: Sensation is intact. Deep Tendon Reflexes: Reflexes are normal and symmetric. Psychiatric: Mood and Affect: Mood and affect normal. Cognition and Memory: Memory normal. Judgment: Judgment normal. Comments: Normal [facility] within last 24 hours Lab Results Component Value Date/Time WBC 5.1 09/06/2021 01:58 AM Hemoglobin 10.1 (L) 09/06/2021 01:58 AM Hematocrit 32.0 (L) 09/06/2021 01:58 AM Platelets 256 09/06/2021 01:58 AM MCV 78.5 (L) 09/06/2021 01:58 AM Lab Results Component Value Date/Time Sodium 139 09/06/2021 01:58 AM Potassium 3.1 (L) 09/06/2021 01:58 AM Chloride 103 09/06/2021 01:58 AM CO2 25 09/06/2021 01:58 AM BUN 4 (L) 09/06/2021 01:58 AM CREATININE 0.51 (L) 09/06/2021 01:58 AM Glucose 69 (L) 09/06/2021 01:58 AM Calcium 8.8 09/06/2021 01:58 AM Magnesium 1.9 09/06/2021 01:58 AM Phosphorus 3.7 09/06/2021 01:58 AM Assessment and Plan: Intractable Nausea and Vomiting LLQ Abdominal Pain -likely inflammatory and related to patient's left ureteral stent -CT Abd Pelvis showed no acute process; no pyelonephritis but stable left mild hydronephrosis -patient unable to tolerate PO -Nausea: Compazine 5mg for first line; nausea is well controlled with Nausea; will try to advance diet -Pain: 30mg Toradol IV q6h and 1,000mg Tylenol q8h scheduled for first line; may consider PRN 0.5mgDilaudid if pain not controlled - NS infusion 100mL/hr - scheduled senna and glycolax PRN for constipation - Restart Zyprexa - Continue Clear liquid diet- advance diet as tolerated Agree. In addition: Scheduled Tylenol and Toradol. As needed subcutaneous Dilaudid for breakthroughpain. IV Dilaudid is reasonable for severe breakthrough pain only. She should be evaluated for severe breakthrough pain prior escalating pain regimen. Continue Compazine for nausea. Nausea is currently well controlled. History of Pyelonephritis Endometrial carcinoma s/p hysterectomy in 12/2020 complicated by left ureteral injury Left ureteral injury s/p ureteral stent -procal 0.02 on admission -urine culture shows no growth- unlikely to currently have a UTI -low suspicion for pyelonephritis, will not give abx at this time -pain is likely related to left ureteral stent -denies dysuria -will continue to monitor Depression and Anxiety -Restart home Zyprexa; patient refused PO so she did not take - Goals of Care: FULL CODE - DVT Prophylaxis: lovenox 40 q24h - creatinine clearance > 30 - GI Prophylaxis: Protonix daily - Diet: Clear Liquids Associated attestation - Tyler Kemp DO - 09/06/2021 1:47 PM EST I have discussed the care of Addis Torres with the medical student and/or resident. I have personally taken a history, examined the patient, and performed the associated medical decision making activities. I have reviewed & verified the attested documentation. Unless otherwise noted below, this documentation reflects the history, physical exam, and medical decision making that I performed myself. Please see note for my personal highlights or additions in Green. Patient seen and examined by myself at 0814 on 09/06/21 Farah Changes to Care Plan: -Optimize pain regimen: Tylenol 1g TID, Toradol 30 mg q6h and subcutaneous Dilaudid q4h PRN. Okay for IV Dilaudid for severe breakthrough pain only, patient should be evaluated if called for pain overnight to determine need for further escalation of pain medications. -Pain is likely inflammatory in the setting of left ureteral stent. Anti- inflammatory medications are preferred as first-line for this reason. -Nausea/emesis currently well-controlled with compazine. Continue PRN compazine. Avoid further use of Haldol. -Patient tolerating some fluids this AM, will attempt to advance diet throughout the day. -Anticipate discharge home tomorrow if pain/nausea are better controlled. Unlikely to have completeresolution of symptoms until surgery. Procedure to be performed on 09/09/2021. I spent over 51% total time of 35 minutes counseling (or coordinating care). Discussed current planof care with patient. Coordinated care with resident team. * Aryan Jama MD - 09/05/2021 9:17 PM EST Was notified by the covering RN that the patient is complaining of 10 out of 10 left groin pain. She received 0.5 of subQ Dilaudid at 2 pm and some Ketorolac 30 mg at 7 pm which has not controlled her pain. She says that the subQ Dilaudid is not effective and she is asking to receive it via IV. Evaluated the patient at bedside. She appears uncomfortable due to the pain in her left groin. She describes it as crampy and stabbing pain similar to the previous episodes that she has had since admission. She also complains of nausea and that she is not able to tolerate anything PO. Her abdomen is soft but tender to palpation in the left lower quadrant and the left groin. Patient denies any other symptoms at the moment. Discussed with the patient that I can order a one dose of IV Dilaudid for her but won't be able to change her pain management plan overnight, she was encouraged to discuss this with the day team providers. It appears that the patient had the impression that she will be getting IV pain medications. Plan: Ordered one time dose of 0.5 IV Dilaudid for pain, she can also get her next dose of Ketorolac when appropriate and Tylenol PRN. Ordered 10 mg of IV Compazine and 2 mg of Haldol for nausea. Offer the patient some heating pad. * Shonna Herrera RN - 09/05/2021 4:09 PM EST Report called to Tanya QUEVEDO, patient to be transferred to [facility] * Shonna Herrera RN - 09/05/2021 10:[address] Martinez on [facility] to inquire if they want patient on Tele as she has Haldol IVordered prn. Dr Martinez stated patient does not need tele. * Chance Martinez MD - 09/05/2021 7:22 AM EST Images from the original note were not included. Med Team Progress Note Addis Torres : 2000(21 y.o.) Date: September 05, 2021 Med Team: Rubén Attending: Justo Chief Complaint: Intractable Nausea and Vomiting Subjective: - No acute events overnight. - Currently, patient still having some nausea and vomiting - Increased LLQ- pain with some left CVA tenderness. Will put in a stat CT abdomen/Pelivs to rule out acute process; patient is not febrile but having significant change in her abdominal exam - Will make adjustments to her pain /nausea regiement -currently not tolerating PO Agree with the above. Left flank, abdominal and back pain worse this AM. Patient aware that a CT scan has been ordered. Also notes worsening nausea and emesis. Unable to tolerate any PO including pills. States that compazine and Haldol have worked for nausea and emesis in the past. Review of Systems Constitutional: Negative for chills and diaphoresis. HENT: Negative for rhinorrhea. Eyes: Negative for visual disturbance. Respiratory: Negative for cough, shortness of breath and wheezing. Cardiovascular: Negative for chest pain, palpitations and leg swelling. Gastrointestinal: Positive for constipation and nausea. Negative for abdominal distention and diarrhea. Genitourinary: Positive for pelvic pain. Negative for difficulty urinating, dysuria, hematuria, urgency and vaginal discharge. S/p hysterectomy Musculoskeletal: Negative for arthralgias and myalgias. Skin: Negative for rash. Neurological: Negative for speech difficulty, weakness and headaches. Scheduled Meds: pantoprazole 40 mg Oral QAM AC sodium chloride flush 5-40 mL IntraVENous 2 times per day enoxaparin 40 mg SubCUTAneous Daily sennosides-docusate sodium 1 tablet Oral Daily OLANZapine 5 mg Oral Nightly Continuous Infusions: sodium chloride sodium chloride 100 mL/hr at 09/04/21 1645 Objective: BP 138/89 Pulse 87 Temp 99.9 F (37.7 C) (Temporal) Resp 18 Ht 5' 9 (1.753 m) Wt 169 lb 14.4 oz (77.1 kg) LMP 11/09/2020 (Approximate) SpO2 100% BMI 25.09 kg/m Physical Exam Vitals reviewed. Constitutional: General: She is not in acute distress. Appearance: Normal appearance. She is well-developed. She is ill-appearing. Comments: Patient sitting upright; vomiting in bag HENT: Right Ear: Hearing and external ear normal. Left Ear: Hearing and external ear normal. Nose: Nose normal. Mouth/Throat: Mouth: Mucous membranes are moist. Pharynx: Oropharynx is clear. Eyes: General: Lids are normal. Extraocular Movements: Extraocular movements intact. Conjunctiva/sclera: Conjunctivae normal. Neck: Thyroid: No thyromegaly or thyroid tenderness. Cardiovascular: Rate and Rhythm: Normal rate and regular rhythm. Heart sounds: Normal heart sounds, S1 normal and S2 normal. No murmur heard. No friction rub. No gallop. Pulmonary: Effort: Pulmonary effort is normal. No respiratory distress. Breath sounds: Normal breath sounds. No wheezing. Chest: Breasts: Right: No supraclavicular adenopathy. Left: No supraclavicular adenopathy. Abdominal: General: There is no distension. Palpations: Abdomen is soft. There is no mass. Tenderness: There is abdominal tenderness (LLQ- very tender to palpation). There is left CVA tenderness. Comments: No hepatosplenomegaly Musculoskeletal: Cervical back: Full passive range of motion without pain and neck supple. Right lower leg: No edema. Left lower leg: No edema. Lymphadenopathy: Cervical: No cervical adenopathy. Upper Body: Right upper body: No supraclavicular adenopathy. Left upper body: No supraclavicular adenopathy. Skin: General: Skin is warm and dry. Findings: No rash. Neurological: Mental Status: She is alert and oriented to person, place, and time. Sensory: Sensation is intact. Deep Tendon Reflexes: Reflexes are normal and symmetric. Psychiatric: Mood and Affect: Mood and affect normal. Cognition and Memory: Memory normal. Judgment: Judgment normal. Comments: Normal [facility] within last 24 hours Lab Results Component Value Date/Time WBC 5.5 09/05/2021 01:29 AM Hemoglobin 10.1 (L) 09/05/2021 01:29 AM Hematocrit 32.1 (L) 09/05/2021 01:29 AM Platelets 259 09/05/2021 01:29 AM MCV 77.5 (L) 09/05/2021 01:29 AM Lab Results Component Value Date/Time Sodium 139 09/05/2021 01:29 AM Potassium 3.5 09/05/2021 01:29 AM Chloride 103 09/05/2021 01:29 AM CO2 25 09/05/2021 01:29 AM BUN 6 (L) 09/05/2021 01:29 AM CREATININE 0.48 (L) 09/05/2021 01:29 AM Glucose 91 09/05/2021 01:29 AM Calcium 8.8 09/05/2021 01:29 AM Magnesium 2.0 09/05/2021 01:29 AM Phosphorus 3.2 09/05/2021 01:29 AM Assessment and Plan: Intractable Nausea and Vomiting LLQ Abdominal Pain -likely inflammatory and related to patient's left ureteral stent -CT Abd Pelvis showed no acute process; no pyelonephritis but stable left mild hydronephrosis -patient unable to tolerate PO; will optimize nausea medications using IV -Nausea: Compazine 5mg for first line; if her nausea is not controlled then we can consider Haldol as 2nd line -Pain: 30mg Toradol IV q6h PRN for first line; 0.5mg Dilaudid subQ q6h PRN for 2nd line - NS infusion 100mL/hr - scheduled senna and glycolax PRN for constipation -Restart Zyprexa -Continue Clear liquid diet- advance diet as tolerated History of Pyelonephritis s/p ureteral stent -procal 0.02 on admission -urine culture shows no growth- unlikely to currently have a UTI -low suspicion for pyelonephritis, will not give abx at this time -pain is likely related to left ureteral stent -denies dysuria -will continue to monitor Unlikely pyelonephritis. No inflammation noted on CT abdomen/pelvis. Likely related to ureteral stent. Depression and Anxiety -Restart home Zyprexa; patient refused PO so she did not take - Goals of Care: FULL CODE - DVT Prophylaxis: lovenox 40 q24h - creatinine clearance > 30 - GI Prophylaxis: Protonix daily - Diet: Clear Liquids Associated attestation - Tyler Kemp DO - 09/05/2021 3:54 PM EST I have discussed the care of Addis Torres with the medical student and/or resident. I have personally taken a history, examined the patient, and performed the associated medical decision making activities. I have reviewed & verified the attested documentation. Unless otherwise noted below, this documentation reflects the history, physical exam, and medical decision making that I performed myself. Please see note for my personal highlights or additions in Green. Patient seen and examined by myself at 0817 on 09/05/21 Farah Changes to Care Plan: -Worsening abdominal pain this AM. CT abdomen pelvis showed no worsening of hydronephrosis and no evidence of pyelonephritis. Likely related to left ureteral stent which is scheduled to be removed on09/09/2020. -Zofran has not been effective for her nausea. Stop Zofran and start compazine (PO preferred, but can use IV if not tolerating PO). Compazine has worked well for the patient in the past. -Pain is likely inflammatory in the setting of left ureteral stent. PRN Toradol preferred, okay to use subcutaneous Dilaudid for breakthrough pain. -Discharge home in the next 1-2 days if pain/nausea are able to be controlled. Spoke with urologist(Dr. Barahona), procedure will still be performed on 09/09/2020 if she remains inpatient. I spent over 51% total time of 35 minutes counseling (or coordinating care). Discussed current planof care with patient. Coordinated care with resident team. * Chance Martinez MD - 09/04/2021 2:18 PM EST Images from the original note were not included. Med Team Afternoon Progress Note Addis Torres : 2000(21 y.o.) Date: September 04, 2021 Med Team: Rubén Attending: Justo Subjective: Patient evaluated at bedside this morning She continues to have nausea and vomiting Discussed with Urology; patient has procedure scheudled on 09/09/21, they would like a formal consultto follow the patient Objective: Vitals: 09/04/21 0318 09/04/21 0446 09/04/21 0639 09/04/21 0737 BP: (!) 136/91 (!) 165/122 (!) 160/111 (!) 145/98 Pulse: 76 104 108 97 Resp: 18 20 16 Temp: 98.8 F (37.1 C) 98.9 F (37.2 C) TempSrc: Temporal Temporal Temporal SpO2: 100% 100% 100% Weight: 169 lb 14.4 oz (77.1 kg) Height: Changes to Current Assessment and Plan: Given the patient's clean urine culture and no signs of systemic symptoms or complaints of dysuria-will d/c meropenom and d/c ID consult Likely due to Intractable Nausea and Vomiting Urology consulted for formal evaluation for open vs robotic stent replacement on 09/09/20; appreciaterecs Continue Zyprexa 5mg nightly Please refer to H&P/Progress note for additional attestation, exam, and plan. [facility] Work Phone: 1(709) 441-817512-27-2021 History of Present illness Narrative* Polly Alonso RN - 09/02/2021 3:16 PM EST Pt. States she refuses to have any robotic surgery; states she had robotic surgery earlier this year and that she's been having problems ever since. Dr. Barahona's office called; spoke to Ruth; states she would notify appropriate people. documented in this [facility] Work Phone: 1([phone]) 567-238412-27-2021 Hospital Discharge instructions* Instructions* Polly Alonso RN - 09/02/2021 Shower with an antibacterial soap such as Dial or Safeguard. No makeup, deodorant, lotions, powder, body spray. Please bring a photo ID and insurance information No smoking, no alcohol 24 hours prior to surgery. Do NOT take the following medications on the morning of surgery: GLYCOLAX. TAKE the following medications the morning of your surgery: ZOFRAN IF NEEDED, PROTONIX. You may take Tylenol (Acetaminophen) if needed for pain the morning of your surgery. No Motrin, Ibuprofen, or Advil 24 hours prior to surgery, or longer if instructed by your surgeon. No Aleve or Naprosyn 3 days prior to surgery, or longer if instructed by your surgeon. Do not take aspirin or aspirin containing products for 5 days before surgery, or longer if instructed by your surgeon. You will receive a reminder call the day before surgery with your Same Day Surgery arrival time. If you have specific questions, please call your surgeon. You may use the hotel superintendent parking located at the main entrance on [address] [facility] and take the H elevator to the first floor for same day surgery. Take a left after exiting the elevator and check in at the desk. You may use the parking in the Main deck. Take the level one bridge to the H building and follow the signs for same day surgery. Check in at the desk. documented in this [facility] Work Phone: 1(774) 122-188012-22-2021 [facility]11-25-2021 [facility]11-[facility]21 Hospital Discharge instructions Patient Education 07/18/2021 09:47:12 AA Milagros CASTRO(CUSTOM) Flank pain Please follow-up with your urologist regarding your flank pain and your stent. Take your nausea medicine and the prescription pain medicine at prescribed Document Released: 08/24/2006 Document Revised: 08/10/2013 Document Reviewed: 08/25/2014 [employer] Patient Information 2015 [a]list gamesSaint [facility], [facility]. This information is not intended to replace advicegiven to you by your health care provider. Make sure you discuss any questions you have with your health care provider. Follow Up Care 07/18/2021 08:31:30 With:your urologist Address: When:2-4 days [facility] 07-04-2021 [facility]07-04-2021 History of Present illness Narrative* Kylah Redmond RN - 03/10/2021 3:00 PM EDT Pt given DC instructions and has no further questions at this time. PICC line removed and pt laid in bed for required 30 min. VS taken and stable besides HR 123. Pt refused to stay while this nurse paged Doctor about HR. Pt refused transport services and refused NA to transport via wheel chair and had mom wheel pt down herself. Dr. Henry informed. * Kylah Redmond RN - 03/10/2021 11:55 AM EDT Pt and mother asking if there is any possibility of DC home today. Pt ate a little over half of a PBJ sandwich. Dr. Henry paged to inform. Dr. Henry stated he will be up in hour to round. Pt and mother informed. * Purnima Clarke MD - 03/10/2021 9:52 AM EDT NUTRITION/TPN NOTE: Patient seems more committed to trying increased po intake. Per Dr. Toledo's note yesterday, she was making good eye contact, and we noticed much improved participation with conversation than when wefirst met her in [facility] 03/04/21 Hopefully po intake will improve PLAN: -continue TPN while in house, do not plan to continue >1 more week unless definite etiology preventing po intake is found -TPN on 16 hr cycle, electrolytes adjusted per labs * Octavia Toledo MD - 03/09/2021 2:38 PM EDT Images from the original note were not included. Med Team Progress Note Addis Rivers Torres : 2000(21 y.o.) Date: March 09, 2021 Med Team: Mando Attending: Tre Chief Complaint: Intractable N/V Subjective: - Overnight, patient dobhoff tube reported by pt to have fallen out. Per nursing note, patient stated her body doesn't want it - Currently, patient is doing well. States that she does not believe her nausea is due to food, andthinks it is associated with something else. Patient states she was able to eat, although last mealwas night of 03/07 and at that time patient eventually vomited small amount of PB+J sandwich. Patientwas able to take some PO milkshake while team was in room. Pt seen and examined earlier today on bedside resident teaching rounds. Hx and PE independently obtained. Mother in room visiting pt. Pt reports her DobHoff 'fell out' overnight. Also reports she hasbeen eating small amounts of food for past 3 days, including most of a PB&J sandwich yest pm which she kept down. Feels that eating is NOT the cause of her nausea, and would like to pursue po intake. Did discuss the possibility of PEJ placement if she is unable to eat as a 'Plan B' to ensure adequate nutrition. Mother was very supportive of pt's reported ongoing efforts to eat, as well as having a back-up plan if needed. Reviewed with pt preferred dietary choices, namely lean protein, vegetables, fruit. Came up with a selection offered by [employer] and agreeable to pt. She will provide med team with update on her dietary progress on tomorrow's teaching rounds. Review of Systems Constitutional: Negative for chills and fever. HENT: Negative for congestion, nosebleeds and rhinorrhea. Eyes: Negative for photophobia, pain and visual disturbance. Respiratory: Negative for cough and shortness of breath. Cardiovascular: Negative for chest pain and leg swelling. Gastrointestinal: Positive for abdominal pain (left lower quadrant). Genitourinary: Negative for difficulty urinating and dysuria. Musculoskeletal: Negative for back pain. Skin: Negative for color change and rash. Neurological: Negative for dizziness, light-headedness and headaches. Psychiatric/Behavioral: Negative for agitation and behavioral problems. Agree. Scheduled Meds: acetaminophen 650 mg Oral 6 times per day OLANZapine 5 mg Oral Nightly lidocaine 1 % injection 5 mL Intradermal Once sodium chloride flush 10 mL Intravenous 2 times per day sodium chloride flush 10 mL Intravenous 2 times per day heparin flush 250 Units Intravenous 2 times per day sodium chloride flush 10 mL Intracatheter Q12H heparin flush 250 Units Intracatheter Q12H sennosides-docusate sodium 2 tablet Oral BID bisacodyl 10 mg Rectal Daily mirtazapine 15 mg Oral Nightly erythromycin 250 mg Intravenous Q8H sodium chloride flush 5-40 mL Intravenous 2 times per day polyethylene glycol 17 g Oral Daily trospium 20 mg Oral BID AC sodium chloride flush 5-40 mL Intravenous 2 times per day pantoprazole 40 mg Intravenous Daily And sodium chloride (PF) 10 mL Intravenous Daily tamsulosin 0.4 mg Oral Daily Continuous Infusions: PN-Adult 3 IN 1 Central Line (Custom) sodium chloride sodium chloride PRN meds used in last 24hrs: dilaudid x5, compazine x2 Objective: BP 123/81 Pulse 106 Temp 98.2 F (36.8 C) (Oral) Resp 18 Ht 5' 9.02 (1.753 m) Wt 192 lb 12.8 oz (87.5 kg) LMP 11/09/2020 (Approximate) SpO2 96% BMI 28.46 kg/m Physical Exam Constitutional: General: She is not in acute distress. Comments: Young woman in bed, minimal distress HENT: Head: Normocephalic and atraumatic. Nose: Nose normal. Comments: No dobhoff tube, no signs of trauma Mouth/Throat: Mouth: Mucous membranes are moist. Pharynx: Oropharynx is clear. Eyes: General: No scleral icterus. Conjunctiva/sclera: Conjunctivae normal. Pupils: Pupils are equal, round, and reactive to light. Cardiovascular: Rate and Rhythm: Regular rhythm. Tachycardia present. Pulses: Normal pulses. Heart sounds: Normal heart sounds. Pulmonary: Effort: Pulmonary effort is normal. No respiratory distress. Breath sounds: Normal breath sounds. Abdominal: General: There is no distension. Palpations: Abdomen is soft. Comments: Diffuse tenderness Musculoskeletal: Cervical back: Normal range of motion. Right lower leg: No edema. Left lower leg: No edema. Skin: General: Skin is warm and dry. Neurological: General: No focal deficit present. Mental Status: She is alert and oriented to person, place, and time. Mental status is at baseline. Psychiatric: Mood and Affect: Mood normal. Thought Content: Thought content normal. A&Ox3. Cooperative. Makes good eye contact. Siting up in bed in no apparent distress. HEENT- MMM. Neck-supple Cor- RRR, nl S1S2. Lungs- CTA. Abd (+) BS, soft with mild, diffuse tenderness. Ext- no edema. Neuro- no focal deficits noted [facility] within last 24 hours Lab Results Component Value Date/Time WBC 7.6 03/09/2021 12:18 AM Hemoglobin 10.2 (L) 03/09/2021 12:18 AM Hematocrit 31.4 (L) 03/09/2021 12:18 AM Platelets 193 03/09/2021 12:18 AM MCV 81.3 03/09/2021 12:18 AM Lab Results Component Value Date/Time Sodium 137 03/09/2021 12:18 AM Potassium 3.5 03/09/2021 12:18 AM Chloride 107 03/09/2021 12:18 AM CO2 21 (L) 03/09/2021 12:18 AM BUN 14 03/09/2021 12:18 AM CREATININE 0.49 (L) 03/09/2021 12:18 AM Glucose 110 (H) 03/09/2021 12:18 AM Calcium 8.5 03/09/2021 12:18 AM Magnesium 2.1 03/09/2021 12:18 AM Phosphorus 4.3 03/09/2021 12:18 AM Lab Results Component Value Date/Time AST 20 03/09/2021 12:18 AM ALT 11 03/09/2021 12:18 AM Total Protein 7.1 03/09/2021 12:18 AM Albumin,Serum 3.9 03/09/2021 12:18 AM Total Bilirubin 0.3 03/09/2021 12:18 AM Alkaline Phosphatase 41 03/09/2021 12:18 AM Assessment and Plan: Intractable nausea and vomiting Malnutrition 2/2 above - EGD remarkable for LA type B esophagitis, erosions of antrum seen, biopsy of antrum obtained negative - psychology consulted early in course 2/2 concern for eating disorder as it seems patient afraid/hesitant to eat, they did not feel eating disorder was likely - CT A/P and MRI brain not concerning for metastasis - Last intake PO was over a week ago, TPN started 03/04 - BMP, Mg, Phos, ionized Ca BID to watch for refeeding syndrome - palliative care following for symptom management, appreciate recs - discontinued haldol and remeron - restarted compazine 10 mg q6h prn - started zyprexa 5 mg qhs and ativan q6h prn - Patient failed GES; unable to get repeat GES - Reconsult of surgery, recommended IR placement of dobhoff, which subsequently fell out - patient now states she is able to take PO, will continue to try. Pt encouraged to try small amounts of varied foods. D/w pt that if po trail is unsuccessful, may then need to re-examine consideration for PEJ. - Per Dr. Clarke (TPN and nutrition), may need repeat psych consult as this may have a greater psych component that previously realized. Await pt's progress on po trial as seems more accepting of attempting a po diet. Abdominal pain, stable - Etiology repeating vomiting along with post-operative from L stent placement 02/13 - Palliative following for symptom control - continue dilaudid 0.5 mg PRN for pain Q4h Elevated blood pressures, improving - likely 2/2 to acute distress for n/v, abdominal pain - hydralazine and labetalol prn per BP parameters - will need follow up outpatient Ureteral injury (intraoperative) with ureteral stricture with L stent placed (02/12) - Stent in appropriate position per 02/26 KUB and 02/22 CT ABD WO (L-sided hydronephrosis/ureter has resolved) and unlikely to be causing N/V - Pt denied PNT and will continue with stent in place; will f/u with Dr. Barahona 03/13/2021 - Per uro, will not remove stent at this time, as she will require placement of a perc nephrostomy tube, which she has refused in the past Hx of endometrial adenocarcinoma hysterectomy with bilateral salpingo- oophorectomy and sentinel lymph node sample - Total hysterectomy with salpingectomy 12/18/2020 with thermal injury to L ureter and initial stentplaced 12/28 - Stable - Goals of Care: FULL CODE - DVT Prophylaxis: SCDs - GI Prophylaxis: Protonix daily - Diet: General TPN Attending Supervising Physician's Attestation Statement for Progress Note I performed a history and physical examination on the patinet and discussed the management with theresident physician. I reviewed and agree with the findings and plan as documented in their note except as amended in green font. Discussed with: [x]Residents [x]Patient/Family- mtr at bedside [x]RN []Consultants []SW/TCC []Other Reviewed: [x]Epic notes []Radiology studies [x]Labs []EKG []Other Subsequent Inpatient: Spent over 51% of total time 35 minutes counseling or coordinating care, and provided discussion regarding diet trial with pt who appears motivated at this time to take po. * Purnima Clarke MD - 03/09/2021 10:54 AM EDT NUTRITION/TPN NOTE: Dobhoff placed with sedation and under fluoro yesterday 03/08/21 late afternoon in radiology-->fell out while she was sleeping because because her body doesn't want it per pt (see nurse's note) early this a.m., in less than 10 hrs from being placed. This is VERY CONCERNING for more of a psychiatric component to her eating disorder/n/v than we may have realized or focused on. Electrolytes: -adjustments to potassium, phos and sodium today -continue 16 hr cycle PLAN: -will continue TPN while in house but unless she begins to participate more in recommended therapies I will put a limit on how long TPN will continue of ~1 week and [facility]/outpatient TPN remains CONTRAINDICATED IN THIS PATIENT with no evidence true gut dysfunction at this time * Maribeth Ibarra RN - 03/09/2021 12:28 AM EDT Entered pt's room to find dobbhoff completely removed. Pt claimed that it fell out while she was sleeping because her body doesn't want it. Med team resident notified * Daniel Henriquez MD - 03/08/2021 1:50 PM EDT Images from the original note were not included. Department of Surgery Surgical Service -1 Daily Progress Note PATIENT NAME: Addis Torres : 2000 ATTENDING PHYSICIAN: Rachael Butler DO ADMIT DATE: 02/23/2021 TODAY'S DATE: 03/08/2021 SUBJECTIVE Reconsulted on patient regarding consideration for PEG placement. Since last seen, the patient has continued to have intractable nausea / vomiting despite multimodal antiemetic medication trials. Repeat attempts at gastric emptying study have been unsuccessful. The patient reports no improvement ofher symptoms with TPN administration. The patient reports new abdominal wall muscular pain/fatigue related to repeated dry heaving. The patient denies changes to bowel movements. She endorses flatus.Discussed with the patient repeat attempt at Dobbhoff placement to which she is amenable with some sedation. OBJECTIVE VITALS: BP 130/82 Pulse 112 Temp 98.9 F (37.2 C) (Temporal) Resp 18 Ht 5' 9.02 (1.753 m) Wt 192 lb 12.8 oz (87.5 kg) LMP 11/09/2020 (Approximate) SpO2 95% BMI 28.46 kg/m PHYSICAL EXAM: CONSTITUTIONAL: NAD, A&O X3. CHEST: Resp effort easy and unlabored ABDOMEN: soft, non-distended, non-tender, Peritoneal signs absent, well-healed laparoscopic incision sites INTAKE/OUTPUT: I/O last 3 completed shifts: In: - Out: 100 [Emesis/NG output:100] No intake/output data recorded. Data Recent Labs 03/06/21 0005 03/07/21 03203/08/21 0252 WBC 8.2 7.5 7.2 HGB 11.7 10.8* 9.7* HCT 35.2 33.3* 30.0* PLT 243 184 171 Recent Labs 03/06/21 1914 03/07/21 0321 03/08/21 0252 NA 136 137 140 K 4.0 3.9 3.8 CL 106 107 108* CO2 22 19* 21* BUN 14 17 17 CREATININE 0.50* 0.43* 0.43* GLUCOSE 98 115* 92 Recent Labs 03/06/21 0005 03/07/21 0321 03/08/21 0252 AST 21 20 19 ALT 13 12 10 BILITOT 0.6 0.3 0.4 ALKPHOS 52 47 38 Imaging Pertinent imaging reviewed. Current Inpatient Medications Current Facility-Administered Medications: PN-Adult 3 IN 1 Central Line (Custom), , Intravenous, Continuous TPN [CANCELED] XA SPECIAL PROCEDURE, , , Once AND LORazepam (ATIVAN) injection 2 mg, 2 mg, Intravenous, ONCE PRN HYDROmorphone (DILAUDID) injection 0.5 mg, 0.5 mg, Intravenous, Q4H PRN acetaminophen (TYLENOL) tablet 650 mg, 650 mg, Oral, 6 times per day prochlorperazine (COMPAZINE) injection 10 mg, 10 mg, Intravenous, Q6H PRN LORazepam (ATIVAN) tablet 0.25 mg, 0.25 mg, Oral, Q4H PRN OLANZapine (ZYPREXA) tablet 5 mg, 5 mg, Oral, Nightly glucagon (rDNA) injection 1 mg, 1 mg, Intramuscular, PRN lidocaine 1 % injection 5 mL, 5 mL, Intradermal, Once sodium chloride flush 0.9 % injection 10 mL, 10 mL, Intravenous, 2 times per day sodium chloride flush 0.9 % injection 10 mL, 10 mL, Intravenous, 2 times per day sodium chloride flush 0.9 % injection 10 mL, 10 mL, Intravenous, PRN heparin flush 100 UNIT/ML injection 250 Units, 250 Units, Intravenous, 2 times per day heparin flush 100 UNIT/ML injection 250 Units, 250 Units, Intravenous, PRN sodium chloride flush 0.9 % injection 10 mL, 10 mL, Intracatheter, Q12H heparin flush 100 UNIT/ML injection 250 Units, 250 Units, Intracatheter, Q12H sodium chloride flush 0.9 % injection 10 mL, 10 mL, Intracatheter, PRN heparin flush 100 UNIT/ML injection 250 Units, 250 Units, Intracatheter, PRN sennosides-docusate sodium (SENOKOT-S) 8.6-50 MG tablet 2 tablet, 2 tablet, Oral, BID bisacodyl (DULCOLAX) suppository 10 mg, 10 mg, Rectal, Daily mirtazapine (REMERON KRISTYN-TAB) disintegrating tablet 15 mg, 15 mg, Oral, Nightly erythromycin (ERYTHROCIN) 250 mg in sodium chloride 0.9 % 100 mL IVPB, 250 mg, Intravenous, Q8H hydrALAZINE (APRESOLINE) injection 10 mg, 10 mg, Intravenous, Q6H PRN labetalol (NORMODYNE;TRANDATE) injection 10 mg, 10 mg, Intravenous, Q6H PRN sodium chloride flush 0.9 % injection 5-40 mL, 5-40 mL, Intravenous, 2 times per day sodium chloride flush 0.9 % injection 5-40 mL, 5-40 mL, Intravenous, PRN 0.9 % sodium chloride infusion, 25 mL, Intravenous, PRN polyethylene glycol (GLYCOLAX) packet 17 g, 17 g, Oral, Daily trospium (SANCTURA) tablet 20 mg, 20 mg, Oral, BID AC sodium chloride flush 0.9 % injection 5-40 mL, 5-40 mL, Intravenous, 2 times per day sodium chloride flush 0.9 % injection 5-40 mL, 5-40 mL, Intravenous, PRN 0.9 % sodium chloride infusion, 25 mL, Intravenous, PRN pantoprazole (PROTONIX) injection 40 mg, 40 mg, Intravenous, Daily AND sodium chloride (PF) 0.9% injection 10 mL, 10 mL, Intravenous, Daily tamsulosin (FLOMAX) capsule 0.4 mg, 0.4 mg, Oral, Daily ASSESSMENT AND PLAN 21 y.o. female with intractable nausea and vomiting -Recommend re-attempt at dobbhoff placement (can be intragastric) to trial tube feeds / provide nasogastric suction -Would not recommend PEG tube as this will not address patient's intractable nausea / vomiting and potentially contribute to aspiration risk -Continue antiemetics -Continue TPN pending enteral access This plan was discussed with Dr. Carrillo, covering for Dr. Leonardo Henriquez MD, PGY-3 03/08/2021 1:50 PM Associated attestation - Oswaldo Carrillo MD - 03/08/2021 4:28 PM EDT Attending Supervising Physician s Attestation Statement I saw and evaluated the patient. I discussed the findings and plans with the resident and agree as documented in the note. * Arlet Salinas APRN - DRIP MOLDER - 03/08/2021 7:33 AM EDT Images from the original note were not included. Nutrition Progress Note Addis Torres : 2000(21 y.o.) Date: March 08, 2021 CC: TPN Interval events: Patent has visitor at bedside. States she kept down 1/2 sandwich, but threw it up hours later. Still feels as though she cannot tolerate GES or Dobbhoff placement. Surgery consulted again for potential PEG tube placement. Diet: ADULT DIET; Regular Adult Oral Nutrition Supplement; Standard 4 oz Oral Supplement PN-Adult 3 IN 1 Central Line (Custom) I/Os: Intake/Output Summary (Last 24 hours) at 03/08/2021 0733 Last data filed at 03/07/2021 1102 Gross per 24 hour Intake Output 100 ml Net -100 ml Weight: ABW: Admission weight: 193 lb (87.5 kg) Body mass index is 28.46 kg/m . Line: PICC L basilic DL @51cm Date placed: 03/04/21 Objective: Vitals: 03/07/21 0810 03/07/21 1704 03/07/21 2042 03/08/21 0555 BP: (!) 135/94 (!) 142/92 130/82 Pulse: 120 102 99 112 Resp: 16 18 18 Temp: 99 F (37.2 C) 98.2 F (36.8 C) 98.9 F (37.2 C) TempSrc: Temporal Temporal Temporal SpO2: 98% 95% 95% Weight: Height: Physical Exam Constitutional: Comments: HARPREETWF sitting up in bed in NAD. She is awake and alert. Neck: Comments: Trachea midline Cardiovascular: Rate and Rhythm: Tachycardia present. Heart sounds: Normal heart sounds, S1 normal and S2 normal. Pulmonary: Effort: Pulmonary effort is normal. Abdominal: General: Bowel sounds are normal. Palpations: Abdomen is soft. Renal Panel: Recent Labs 03/06/21 1914 03/07/21 0321 03/08/21 0252 NA 136 137 140 K 4.0 3.9 3.8 CL 106 107 108* CO2 22 19* 21* PHOS 3.7 3.1 4.1 BUN 14 17 17 CREATININE 0.50* 0.43* 0.43* MG 2.1 2.0 2.1 Glucose: Recent Labs 03/05/21 0932 03/05/21 1527 03/06/21 0916 03/06/21 1127 03/06/21 1700 03/06/21 2112 03/07/21 0836 03/07/21 1239 POCGLU 97 98 110* 114* 116* 92 166* 98 Assessment: Malnutrition -Patient meets ASPEN guidelines for severe malnutrition in the setting of acute illness with less than 50% intake for 5 or more days, and weight loss greater than 5% over 1 month -Patient at risk for refeeding syndrome, will start at 20 kcals/kg IBW and advance to goal kcals asable, see calculations below -TPN initiated 03/04/21, increased to goal kcals 03/05/21 -changed to cycle 03/06 Electrolytes -phos increased with just a small change yesterday, will decrease today -increase KCL slightly -decrease sodium slightly -mag stable Blood Glucose -initiated MBS checks to see how blood sugar reacts to TPN -goal MBS while on TPN is <180 -MBS consistently <100 -MBS checks discontinued 03/05/21 Nausea/Vomiting -Has caused frequent visits to ER -On and off since 12/2020 -currently being worked up, had EGD on 02/28/21 that demonstrated evidence of LA grade B esophagitis, significant amount of bile was seen in the stomach; this was suctioned, antral erythema with evidence of erosions but no ulcerations; gastric biopsies obtained to check for H. Pylori, normal D1 &D2 with normal appearing villi, and no evidence of gastric / duodenal outlet obstruction. -patient unable to tolerate Dobbhoff placement, refuses reattempt -needs gastric emptying study, attempted twice and failed d/t patient being unable to tolerate any PO -psychiatry consulted for concern of eating disorder, felt to be very low suspicion that this is the cause -palliative care consulted for symptom management -Surgery consult for recommendations for PEG tube, would not recommend PEG tube, signed off -now reconsulted Left Ureter Injury -left ureter thermal injury during in OR on 12/18/20 -stented on 12/22/20 -stent migrated, removed and replaced 12/26/20 -removed at [facility] -needed new stent placed on 02/12/21 due to stricture -urology following, stent still in appropriate position Hx Endometrial CA -S/P robotic hysterectomy with bilateral salpingo oophorectomy with bilateral pelvic lymph node dissection on 12/18/20. -MRI negative on 03/04 for any evidence of metastatic disease PLAN SUMMARY, and as above: -continue TPN while inpatient, not a candidate for home TPN, tolerating at goal kcals on cycle -electrolyte changes as above -discussed need for GES with patient -check ionized ca+ TPN macronutrient calculations: Ht: 5' 9 Actual BW: 192lbs/ 87.5 kgs IBW: 145 lbs/ 65.9 kgs Start TOTAL Kcal = 1318 @ 20 Kcal/kg of IBW Goal TOTAL Kcal = 1648 @ 25 Kcal/kg of IBW Protein: 118grams @ 1.8 grams/kg of IBW for 472 kcal Carbs: Start- 451 Kcal Lipid: Start- 395 Kcal Goal- 690 Kcal Goal- 490 Kcal Associated attestation - Purnima Clarke MD - 03/08/2021 4:53 PM EDT I have personally seen and examined the patient along with PRAKASH Bkaer CNP. I reviewed the chart including orders, labs, and imaging. I have discussed the patient's plan of action and agree with her findings and plan as documented in her note below. As per my note yesterday, TPN is not appropriate fdc for this pt. I felt it was indicated only until we had gut access placed and possible conversion to J tube-->until enteral, including post pyloric, feeds are tried, and proven to fail, patient does not meet criteria for fdc TPN. * Anna Mosqueda MD - 03/08/2021 7:20 AM EDT Images from the original note were not included. Med Team Progress Note Addis Torres : 2000(21 y.o.) Date: March 08, 2021 Med Team: Mando Attending: Dr. Miles Chief Complaint: Intractable Nausea and Vomitting Subjective: - No acute events overnight. - Patient vomited 100 cc at 7:30 am. Still very nauseous this am. Has not been able to eat a full meal. Regarding GES: feels that she will be unable to eat the sandwich. States that it feels like her stomach was stapled. Her stomach gets full with half of a meal, and she cannot eat anymore. Has LLQ pain, but improved from yesterday. Agree. Review of Systems Eyes: Negative for photophobia, pain and visual disturbance. Respiratory: Negative for shortness of breath. Cardiovascular: Negative for chest pain. Gastrointestinal: Positive for abdominal pain (left lower quadrant). Genitourinary: Negative for difficulty urinating. Neurological: Negative for headaches. Scheduled Meds: acetaminophen 650 mg Oral 6 times per day OLANZapine 5 mg Oral Nightly lidocaine 1 % injection 5 mL Intradermal Once sodium chloride flush 10 mL Intravenous 2 times per day sodium chloride flush 10 mL Intravenous 2 times per day heparin flush 250 Units Intravenous 2 times per day sodium chloride flush 10 mL Intracatheter Q12H heparin flush 250 Units Intracatheter Q12H sennosides-docusate sodium 2 tablet Oral BID bisacodyl 10 mg Rectal Daily mirtazapine 15 mg Oral Nightly erythromycin 250 mg Intravenous Q8H sodium chloride flush 5-40 mL Intravenous 2 times per day polyethylene glycol 17 g Oral Daily trospium 20 mg Oral BID AC sodium chloride flush 5-40 mL Intravenous 2 times per day pantoprazole 40 mg Intravenous Daily And sodium chloride (PF) 10 mL Intravenous Daily tamsulosin 0.4 mg Oral Daily Continuous Infusions: PN-Adult 3 IN 1 Central Line (Custom) 125 mL/hr at 03/07/21 1813 sodium chloride sodium chloride PRN meds used in last 24hrs: Prochlorperazine 10 m, 1253, 1813 Labetalol 10 m Dilaudid 0.5 m, 1711, 2142 Objective: BP 130/82 Pulse 112 Temp 98.9 F (37.2 C) (Temporal) Resp 18 Ht 5' 9.02 (1.753 m) Wt 192 lb 12.8 oz (87.5 kg) LMP 11/09/2020 (Approximate) SpO2 95% BMI 28.46 kg/m Physical Exam Constitutional: General: She is not in acute distress. Appearance: She is ill-appearing. She is not toxic-appearing. HENT: Head: Normocephalic and atraumatic. Eyes: General: Right eye: No discharge. Left eye: No discharge. Extraocular Movements: Extraocular movements intact. Pupils: Pupils are equal, round, and reactive to light. Cardiovascular: Rate and Rhythm: Tachycardia present. Pulses: Normal pulses. Heart sounds: No murmur heard. Pulmonary: Effort: Pulmonary effort is normal. Breath sounds: Normal breath sounds. Abdominal: General: Abdomen is flat. Palpations: Abdomen is soft. Comments: Diminished bowel sounds, but improved from yesterday Agree. [facility] within last 24 hours Lab Results Component Value Date/Time WBC 7.2 03/08/2021 02:52 AM Hemoglobin 9.7 (L) 03/08/2021 02:52 AM Hematocrit 30.0 (L) 03/08/2021 02:52 AM Platelets 171 03/08/2021 02:52 AM MCV 82.4 03/08/2021 02:52 AM Lab Results Component Value Date/Time Sodium 140 03/08/2021 02:52 AM Potassium 3.8 03/08/2021 02:52 AM Chloride 108 (H) 03/08/2021 02:52 AM CO2 21 (L) 03/08/2021 02:52 AM BUN 17 03/08/2021 02:52 AM CREATININE 0.43 (L) 03/08/2021 02:52 AM Glucose 92 03/08/2021 02:52 AM Calcium 8.3 (L) 03/08/2021 02:52 AM Magnesium 2.1 03/08/2021 02:52 AM Phosphorus 4.1 03/08/2021 02:52 AM Lab Results Component Value Date/Time AST 19 03/08/2021 02:52 AM ALT 10 03/08/2021 02:52 AM Total Protein 6.7 03/08/2021 02:52 AM Albumin,Serum 3.5 03/08/2021 02:52 AM Total Bilirubin 0.4 03/08/2021 02:52 AM Alkaline Phosphatase 38 03/08/2021 02:52 AM Assessment and Plan: Intractable nausea and vomiting Malnutrition 2/2 above - EGD remarkable for LA type B esophagitis, erosions of antrum seen, biopsy of antrum obtained negative - psychology consulted early in course 2/2 concern for eating disorder as it seems patient afraid/hesitant to eat, they did not feel eating disorder was likely - CT A/P and MRI brain not concerning for metastasis - Last intake PO was over a week ago, TPN started 03/04 - BMP, Mg, Phos, ionized Ca BID to watch for refeeding syndrome - palliative care following for symptom management, appreciate recs - discontinued haldol and remeron - restarted compazine 10 mg q6h prn - started zyprexa 5 mg qhs and ativan q6h prn - Patient failed GES; unable to get repeat GES, consulting surgery for possible PEG tube Abdominal pain, stable - Etiology repeating retching along with post-operative from L stent placement 02/13 - Palliative following for symptom control - continue dilaudid 0.5 mg PRN for pain Q4h Elevated blood pressures, improving - likely 2/2 to acute distress for n/v, abdominal pain - hydralazine and labetalol prn per BP parameters - will need follow up outpatient Ureteral injury (intraoperative) with ureteral stricture with L stent placed (02/12) - Stent in appropriate position per 02/26 KUB and 02/22 CT ABD WO (L-sided hydronephrosis/ureter has resolved) and unlikely to be causing N/V - Pt denied PNT and will continue with stent in place; will f/u with Dr. Kinsey 03/13/2021 Hx of endometrial adenocarcinoma hysterectomy with bilateral salpingo- oophorectomy and sentinel lymph node sample - Total hysterectomy with salpingectomy 12/18/2020 with thermal injury to L ureter and initial stentplaced 12/28 - Stable - Goals of Care: FULL CODE - DVT Prophylaxis: SCDs - GI Prophylaxis: Protonix daily - Diet: General, has TPN, may eat if she wants Agree with above. Still not able to tolerate PO. Unable to complete GES due to not being able to finish sandwich. TPN is not a solution, she can not go home with this. Will have reach out to surgery for re evaluation for potential PEG tube. Associated attestation - Amado Miles MD - 03/08/2021 12:24 PM EDT Attending Physician Statement I have discussed the care of Addis Torres, including pertinent history and exam findings, with the resident. I have seen and examined the patient and the farah elements of all parts of the encounterhave been performed by me. I agree with the resident note with my corrections and additions (in blue and bolded). (GC Modifier) I spent over 51% of total time >25 minutes counseling/coordinating care and provided discussion regarding plan. * Linda Chávez, TRAFFIC MANAGER - DRIP MOLDER - 03/07/2021 3:25 PM EDT Images from the original note were not included. Palliative Care Follow-Up Chief Complaint: Addis Torres is a 21 y.o. female with chief complaint of intractable nausea andvomiting Palliative care is actively following this patient. Assessment/Plan Assessment/Plan Palliative Care Encounter/Goals of Care -Patient emergency contact is Angelicakristy Torres [phone] -Discussed medical update with Addis-->updated on medication regimen and medical care. -States she could not do GES and has not been able to eat, sometimes pills do not stay down either. -Continue to follow for symptom management-->Chart check -2 and formal follow- up to occur on 03-12, please call *[phone] if URGENT needs arise over the weekend. Thank you. - will continue to follow for ongoing monitoring of progression of Pain, Nausea and Constipation aswell as for appropriateness for hospice care due to Protein Calorie Malnutrition - will continue treatment including compazine, zyprexa, and ativan Nausea/Vomiting -Per patient has gone on for weeks, but per mother has been on and off since December (since ureteral stents placed) -02-28 EGD-->LA Grade B esophagitis, antral erythema, evidence of erosions, no ulcerations-->check for H. Pylori. No evidence of gastric/duodenal outlet obstruction. -Scans for concerning malignancy-->MRI and CT all negative for recurring malignancy. -03-03 and 03-04, failed GES. Hopeful to try again in coming days. -Erythromycin 250 mg Q8-->H. Pylori coverage. -Continue Compazine 10 mg Q6 PRN -Continue Zyprexa 5 mg Q HS -Continue Ativan 0.25 mg Q6 PRN anxiety-->patient not feeling this is overall helpful, but will keep medication on board for anxiety. -Start isopropyl alcohol aroma therapy as discussed with patient today on exam for nausea/ vomiting. -Continue to monitor for symptoms. Malnutrition -Per mother, patient has lost 30 lbs in past 2 months. -03-04-->PICC placed, TPN started and continues. -General surgery saw in consult-->would not recommend PEG. I would agree with this. Cannot rely on her gut at this point especially without reliable GES. -Continues with no PO intake per patient. Concern for Constipation -Continued to endorse nausea and vomiting. -Remains on bowel regimen having regular bowel movements. -Last BM-->03-06, bowel sounds present -Continue to monitor. Hx Endometrial CA, s/p hysterectomy (no chemo/radiation) -Total hysterectomy with bilateral salpingo-oophorectomy and sentinel lymph node biopsy 12-18-20 -Suffered thermal injury to L ureter and initial stent placed 12-28 CT abdomen/pelvis completed-->no concern for metastatic disease -MRI brain ordered-->no mass seen. Hx Ureteral injury with ureteral stricture -S/p stent placement as above. -Follows with urology-->consulted this admission. -02-26 KUB-->stent in appropriate position. -Keeping f/u with Dr. Kinsey 03-13-21. Active Hospital Problems Diagnosis Date Noted Anxiety disorder [F41.9] Renal colic [N23] Intractable nausea and vomiting [R11.2] 02/23/2021 Time/Communication Greater than 51% of time spent, total 25 minutes in counseling and coordination of care at the bedside regarding Symptom Management Discharge planning: to be determined Patient meets criteria for general inpatient hospice care including the following: N/A- Palliative Care Patient Referrals to: none today Discussed patient and the plan of care with the other interdisciplinary team (IDT) members of Palliative Team, and with Primary Attending, Patient, Family and Floor Nurse I have discussed the patient's case and plan of care with my collaborating physician Dr. Pelayo Subjective: Subjective/Events She is seen today, Patient is lying in bed, appearing in NAD. Endorses severe nausea. No PO intake.Abdominal pain reported today 01/14. Increased dilaudid to 0.5 mg dosing. TPN running. Maintain current medication regimen as discussed with patient. Will attempt isopropyl-alcohol aromatherapy. No other events overnight. No CP, palpitations, no dizziness, numbness, tingling. INTERIM-->Ms. Torres is a 21 year old female with PMH of PCOS and endometrial cancer (s/p partialhysterectomy). Presents to the ER with CC of intractable NV from OSH. She had ureteral stents placed 2 weeks ago, had this reaction after previous stent placement. NV relieved in ER with Zofran. Urology called to see patient in ER, stated to keep follow-up appointment OP, continue bactrim after stent placement. Flank pain relieved with pain medication. Stent placement verified with KUB. Continuedto have NV, even with medication recommended per primary team. Seen by GI, not tolerating any PO intake 02-28-21 EGD completed-->LA Grade B esophagitis, antral erythema, evidence of erosions, no ulcerations-->check for H. Pylori. No evidence of gastric/duodenal outlet obstruction. GI recommended palliative care consult at this time for symptom management if no improvement. 02-28-21-->Attempted placement of DHT, patient did not tolerate. Refusing TPN and replacement of DHT. 03-02-21-->planed for gastric emptying study on 03-03, patient did not tolerate. Palliative care consulted for symptom management. Pain Assessment (If Pain Scale >0) N/a no pain reported on my exam Goals of care:To Be Determined Advance Directives: full code Surrogate: Parent Prognosis: depends upon goals Spiritualassessment: No spiritual distress identified Bereavement and grief: To Be Determined Past Medical History: Diagnosis Date Cancer (HCC) endometrial History of blood transfusion oct 2020 PCOS (polycystic ovarian syndrome) Past Surgical History: Procedure Laterality Date CYSTOSCOPY 12/26/2020 C and P DILATION AND CURETTAGE OF UTERUS 11/08/2020 ENDOSCOPY, COLON, DIAGNOSTIC 02/28/2021 HYSTERECTOMY, TOTAL ABDOMINAL 12/18/[address] Escobedo HYSTEROSCOPY 11/08/2020 SALPINGECTOMY Bilateral 12/18/2020 Dr. Escobedo URETER STENT PLACEMENT Left 02/12/2021 Family History Problem Relation Age of Onset Diabetes Mother High Blood Pressure Mother Colon Cancer Maternal Aunt Breast Cancer Maternal Aunt Cancer Maternal Aunt ovarian Breast Cancer Maternal Grandmother Unable to obtain family history due to N/A- family history available Allergies Allergen Reactions Morphine Shortness Of Breath Promethazine-Phenylephrine Nausea And Vomiting ROS: See palliative care ROS/ESAS below; see HPI Review of Systems Social history: [place] status: no Marital status: Engaged Living status: With fiance Work history: n/a Family Meeting: Participants:Patient Family meeting was held to discuss:Goals of Care and Symptom Management Objective: Physical Exam BP (!) 154/92 Pulse 120 Temp 99.7 F (37.6 C) (Temporal) Resp 16 Ht 5' 9.02 (1.753 m) Wt 192 lb 12.8 oz (87.5 kg) LMP 11/09/2020 (Approximate) SpO2 96% BMI 28.46 kg/m Physical Exam Vitals and nursing note reviewed. Constitutional: General: She is awake. She is not in acute distress. Appearance: She is ill-appearing. She is not toxic-appearing. HENT: Head: Normocephalic and atraumatic. Nose: Nose normal. Mouth/Throat: Mouth: Mucous membranes are moist. Pharynx: Oropharynx is clear. No oropharyngeal exudate or posterior oropharyngeal erythema. Eyes: General: Right eye: No discharge. Left eye: No discharge. Extraocular Movements: Extraocular movements intact. Pupils: Pupils are equal, round, and reactive to light. Cardiovascular: Rate and Rhythm: Regular rhythm. Tachycardia present. Pulses: Normal pulses. Heart sounds: Normal heart sounds. No murmur heard. Pulmonary: Effort: Pulmonary effort is normal. No respiratory distress. Breath sounds: Normal breath sounds. Abdominal: General: Bowel sounds are normal. There is distension. Palpations: Abdomen is soft. Tenderness: There is no abdominal tenderness. Comments: Nausea reported Last BM 6-30 Musculoskeletal: Cervical back: Normal range of motion and neck supple. Right lower leg: No edema. Left lower leg: No edema. Skin: General: Skin is warm and dry. Capillary Refill: Capillary refill takes less than 2 seconds. Coloration: Skin is pale. Neurological: Mental Status: She is alert and oriented to person, place, and time. Mental status is at baseline. Psychiatric: Mood and Affect: Affect is flat. Behavior: Behavior is withdrawn. [place] Symptom Assessment Score [place] Score Pain Score 5 Tiredness Score 0 Nausea Score 9 Depression Score 0 Anxiety Score 3 Drowsiness Score 0 Anorexia Score (0= eating well, 10= not eating) 9 Wellbeing Score (10= worst sense of well-being) 3 Constipation 0 Dyspnea Score (0= no shortness of breath) 0 FLACC Scale (For Pain Assessment of the Non-Verbal Patient) N/a patient verbal pain reported in LLQ abdomen 5/10 on exam Assessed by: provider. All other systems were reviewed and are negative. CurrentMedications: Inpatient medications reviewed: yes Home Medications reviewed: no 24 Hour PRN Meds: hydromorphone 0.5 mg IV x1, compazine 10 mg x4, labetalol 10 mg x1 Results/Verification of Data Review Objective data reviewed: labs, images, records, medication use, vitals and chart Data in Support of Terminal Illness: Is patient hospice appropriate? no * Parris Albert RD, LD - 03/07/2021 2:46 PM EDT Comprehensive Nutrition Assessment Type and Reason for Visit: Reassess Nutrition Recommendations/Plan: 1. Continue with current diet/ONS/TPN. 2. Monitor po intake/tolerance. 3. Monitor nutritional status. Nutrition Assessment: Pt with PMH significant for total hysterectomy with bilateral salpingo-oophorectomy and sentinel lymph node biopsy 12-18-; suffered thermal injury to Left ureter and initial stent placed 12-28. Pt with N+V since stent placement, admits with intractable nausea and vomiting, mother endorses 30# weight loss x 2 months. Per pt's mom - her UBW is 230# and weighed that earlier this year. Pt is sitting up in bed, pt with flat affect, sleepy, eyes half open, has not taken any po yet today, has drank some water only. She has tried some of the Ensure Compact, likes the smaller size since she can only take small amounts, hasn't had any today. Pt unable to tolerate gastric emptying study. Malnutrition Assessment: Malnutrition Status: Severe malnutrition Context: Acute Illness Findings of the 6 clinical characteristics of malnutrition: Energy Intake: 7 - 50% or less of estimated energy requirements for 5 or more days Weight Loss: 7 - Greater than 5% over 1 month Body Fat Loss: No significant body fat loss Muscle Mass Loss: No significant muscle mass loss Fluid Accumulation: No significant fluid accumulation Supervisor [employer] Strength: Not Performed Estimated Daily Nutrient Needs: Energy (kcal): 25-30 kcals/kg (65.9kgs) = 9922-6760 kcals/day; Weight Used for Energy Requirements:[place] Protein (g): 1.6-1.8g protein/kg IBW (65.9kgs) = 105-119g protein/day; Weight Used for Protein Requirements: [place] Fluid (ml/day): per MD; Method Used for Fluid Requirements: 1 ml/kcal Nutrition Related Findings: +BS, abd soft, tenderness, +N. MEDS: Remeron (disintegrating tablet), Protonix, Protonix, Erythromycin. Wounds: None Current Nutrition Therapies: ADULT DIET; Regular Adult Oral Nutrition Supplement; Standard 4 oz Oral Supplement PN-Adult 3 IN 1 Central Line (Custom) Current Parenteral Nutrition Orders: Type and Formula: 3-in-1 Custom Lipids: Daily Duration: Continuous Rate/Volume: 2000 mls, 16 hour Current PN Order Provides: 118g protein (472 kcals), 690 dextrose kcals, 490 lipid kcals = 1652 kcals = 25 kcals/kg + 1.8g protein/kg IBW (65.9kgs). Goal PN Orders Provides: same Anthropometric Measures: Height: 5' 9.02 (175.3 cm) Current Body Weight: 192 lb 12.8 oz (87.5 kg) (02/25/21) Admission Body Weight: 192 lb 14.4 oz (87.5 kg) (02/23/21) Usual Body Weight: 203 lb (92.1 kg) [place] Body Weight: 145 lbs; % [place] Body Weight 133 % BMI: 28.5 Adjusted Body Weight: ; No Adjustment BMI Categories: Overweight (BMI 25.0-29.9) BMP: Recent Labs 03/06/21 0005 03/06/21 1708 03/06/21 1914 03/07/21 0321 NA 134* -- 136 137 K 3.9 -- 4.0 3.9 CL 104 -- 106 107 CO2 20* -- 22 19* BUN 15 -- 14 17 CREATININE 0.44* -- 0.50* 0.43* GLUCOSE 108* -- 98 115* CALCIUM 9.0 -- 8.7 8.8 IONCA 4.50 4.40 -- 4.50 MG 2.2 -- 2.1 2.0 PHOS 3.3 -- 3.7 3.1 BG - elevated. Mg - WNL. Phos - WNL. K+ - WNL. HEPATIC: Recent Labs 03/05/21 0320 03/06/21 0005 03/07/21 0321 AST 22 21 20 ALT 13 13 12 BILITOT 0.9 0.6 0.3 ALKPHOS 44 52 47 Nutrition Diagnosis: Altered GI function related to catabolic illness (etiology of N+V being explored.) as evidenced by vomiting, nausea, nutrition support - parenteral nutrition Severe malnutrition, In context of acute illness or injury related to altered GI function as evidenced by nausea, vomiting, poor intake prior to admission, weight loss greater than or equal to 5% in 1 month Nutrition Interventions: Food and/or Nutrient Delivery: Continue Current Diet, Continue Current Parenteral Nutrition, Continue Oral Nutrition Supplement Nutrition Education/Counseling: No recommendation at this time Coordination of Nutrition Care: Continue to monitor while inpatient Goals: Pt receives estimated energy/protein requirements via TPN. Nutrition Monitoring and Evaluation: Behavioral-Environmental Outcomes: None Identified Food/Nutrient Intake Outcomes: Food and Nutrient Intake, Parenteral Nutrition Intake/Tolerance, Diet Advancement/Tolerance Physical Signs/Symptoms Outcomes: Biochemical Data, Diarrhea, GI Status, Nausea or Vomiting, Fluid Status or Edema, Skin, Weight, Hemodynamic Status, Meal Time Behavior, Nutrition Focused Physical Findings Discharge Planning: Too soon to determine Contact: Pager #[phone] * Tiffany Bradford - 03/07/2021 11:22 AM EDT Spiritual Care Follow-Up Note [facility] Patient Name:Addis Torres Reason for visit: Initial Visit Services Provided To:patient Assessment: Met with Addis, introduced spiritual care and my role on the team. Though in physicaldistress Addis was open to converse about her life and plans. She is engaged to a young man who shows her love. Addis said he is here as often as possible but also works. Addis is not overtlyreligious and did not have the energy to explore her hopes other than, I just want to feel better. Honored her difficult lived experience kept the interaction brief. Addis was open to a prayer ofhope. Prayed that her body would feel well enough for her to experience esther and connection with herfiance. She is open to further support. Progress towards goals: Plan: Follow-Up: Tiffany Bradford * Arlet Salinas APRN - RIVKA - 03/07/2021 7:24 AM EDT Images from the original note were not included. Nutrition Progress Note Addis Torres : 2000(21 y.o.) Date: March 07, 2021 CC: TPN Interval events: Patient more talkative today. States she cannot eat enough to complete the gastric emptying studies. Has not eaten anything since she could not tolerate the sandwich 2 days ago. Diet: ADULT DIET; Regular Adult Oral Nutrition Supplement; Standard 4 oz Oral Supplement PN-Adult 3 IN 1 Central Line (Custom) I/Os: Intake/Output Summary (Last 24 hours) at 03/07/2021 0724 Last data filed at 03/07/2021 0420 Gross per 24 hour Intake 2970 ml Output 150 ml Net 2820 ml Weight: ABW: Admission weight: 193 lb (87.5 kg) Body mass index is 28.46 kg/m . Line: PICC L basilic DL @51cm Date placed: 03/04/21 Objective: Vitals: 03/06/21 1129 03/06/21 1702 03/06/21 2123 03/07/21 0516 BP: (!) 154/107 (!) 144/88 131/84 (!) 154/92 Pulse: 120 121 114 125 Resp: 20 16 16 16 Temp: 99 F (37.2 C) 99 F (37.2 C) 98.9 F (37.2 C) 99.7 F (37.6 C) TempSrc: Temporal Temporal Temporal Temporal SpO2: 100% 96% 96% 96% Weight: Height: Physical Exam Constitutional: Comments: WDWF laying in bed in NAD. She is awake and alert. Neck: Comments: Trachea midline Cardiovascular: Rate and Rhythm: Normal rate. Heart sounds: Normal heart sounds, S1 normal and S2 normal. Pulmonary: Effort: Pulmonary effort is normal. Abdominal: General: Bowel sounds are normal. Palpations: Abdomen is soft. Musculoskeletal: Right lower leg: No edema. Left lower leg: No edema. Renal Panel: Recent Labs 03/06/21 0005 03/06/21 1914 03/07/21 0321 NA 134* 136 137 K 3.9 4.0 3.9 CL 104 106 107 CO2 20* 22 19* PHOS 3.3 3.7 3.1 BUN 15 14 17 CREATININE 0.44* 0.50* 0.43* MG 2.2 2.1 2.0 Glucose: Recent Labs 03/05/21 0321 03/05/21 0932 03/05/21 1527 03/06/21 0916 03/06/21 1127 03/06/21 1700 03/06/21 2112 POCGLU 100 97 98 110* 114* 116* 92 Assessment: Malnutrition -Patient meets ASPEN guidelines for severe malnutrition in the setting of acute illness with less than 50% intake for 5 or more days, and weight loss greater than 5% over 1 month -Patient at risk for refeeding syndrome, will start at 20 kcals/kg IBW and advance to goal kcals asable, see calculations below -TPN initiated 03/04/21, increased to goal kcals 03/05/21 -changed to cycle 03/06 Electrolytes -potassium/mag stable -sodium increased appropriately -phos decreased, will need to increase in TPN Blood Glucose -initiated MBS checks to see how blood sugar reacts to TPN -goal MBS while on TPN is <180 -MBS consistently <100 -MBS checks discontinued 03/05/21 Nausea/Vomiting -Has caused frequent visits to ER -On and off since 12/2020 -currently being worked up, had EGD on 02/28/21 that demonstrated evidence of LA grade B esophagitis, significant amount of bile was seen in the stomach; this was suctioned, antral erythema with evidence of erosions but no ulcerations; gastric biopsies obtained to check for H. Pylori, normal D1 &D2 with normal appearing villi, and no evidence of gastric / duodenal outlet obstruction. -patient unable to tolerate D[place] placement, refuses reattempt -needs gastric emptying study, attempted twice and failed d/t patient being unable to tolerate any PO -psychiatry consulted for concern of eating disorder, felt to be very low suspicion that this is the cause -palliative care consulted for symptom management -Surgery consult for recommendations for PEG tube, would not recommend PEG tube, signed off Left Ureter Injury -left ureter thermal injury during in OR on 12/18/20 -stented on 12/22/20 -stent migrated, removed and replaced 12/26/20 -removed at [facility] -needed new stent placed on 02/12/21 due to stricture -urology following, stent still in appropriate position Hx Endometrial CA -S/P robotic hysterectomy with bilateral salpingo oophorectomy with bilateral pelvic lymph node dissection on 12/18/20. -MRI negative on 03/04 for any evidence of metastatic disease PLAN SUMMARY, and as above: -continue TPN, tolerating at goal kcals on 16 hour cycle -electrolyte changes as above TPN macronutrient calculations: Ht: 5' 9 Actual BW: 192lbs/ 87.5 kgs IBW: 145 lbs/ 65.9 kgs Start TOTAL Kcal = 1318 @ 20 Kcal/kg of IBW Goal TOTAL Kcal = 1648 @ 25 Kcal/kg of IBW Protein: 118grams @ 1.8 grams/kg of IBW for 472 kcal Carbs: Start- 451 Kcal Lipid: Start- 395 Kcal Goal- 690 Kcal Goal- 490 Kcal Associated attestation - Purnima Clarke MD - 03/07/2021 5:28 PM EDT I have personally seen and examined the patient along with PRAKASH Baker CNP. I reviewed the chart including orders, labs, and imaging. I have discussed the patient's plan of action and agree with her findings and plan as documented in her note below. Difficult situation - pt has no definite evidence of gut dysfunction, continues with nausea and inability to eat, refuses NG, states she cannot tolerate gastric emptying study. Surgery will not consider PEG placement unless gastric emptying study is obtained, and they have signed off the case. Patient IS NOT A JAIL TPN candidate. I felt TPN indicated ONLY until we had gut access placed and possible conversion to J tube-->until enteral feeds are tried, and proven to fail, patient does not meet criteria for long distance operator TPN. TPN is NOT APPROPRIATE in the home setting for this patient. * Kylah Redmond RN - 03/06/2021 5:40 PM EDT Pt HR 121. Dr. Sanchez paged to inform. * Kylah Redmond RN - 03/06/2021 12:00 PM EDT Pt very nauseous and shaky. BP 154/107 HR 120. BS 114. Pt visibly diaphoretic and clammy. Dr. Sanchezpaged to notify. WALDO Albright added. * Linda Chávez APRN - CNP - 03/06/2021 11:17 AM EDT This is a non-billable note. Ms. Torres chart was reviewed and primary team contacted today to touch base if any concerns or exacerbating symptoms for her. No concerns at this time. Per patient and med team assessment, patient reporting improved symptoms now that compazine has been added back. Ate half a sandwich, and now reporting nausea again, and reports vomiting overnight. Not up for GESagain today per primary team, Utilized 1 dose of ativan overnight. TPN continues. Will continue to follow Addis for symptom management. Primary team aware I will not formally be seeing her today, however if needs arise they can page me via [employer] or below pager. Thank you for continuing to involve our service in the care of Ms. Torres. Signed, Linda Chávez APRN, CNP Palliative Care/Hospice #[id number] * Arlet Salinas APRN - CNP - 03/06/2021 10:57 AM EDT Images from the original note were not included. Nutrition Progress Note Addis Torres : 2000(21 y.o.) Date: March 06, 2021 CC: TPN Interval events: Patient laying in bed, still with c/o nausea. Still feels as though she cannot tolerate a gastric emptying study. Continues on TPN. Diet: PN-Adult 3 IN 1 Central Line (Custom) ADULT DIET; Regular Adult Oral Nutrition Supplement; Standard 4 oz Oral Supplement PN-Adult 3 IN 1 Central Line (Custom) I/Os: Intake/Output Summary (Last 24 hours) at 03/06/2021 1057 Last data filed at 03/06/2021 0511 Gross per 24 hour Intake 850 ml Output 600 ml Net 250 ml Weight: ABW: Admission weight: 193 lb (87.5 kg) Body mass index is 28.46 kg/m . Line: PICC L basilic DL @51cm Date placed: 03/04/21 Objective: Vitals: 03/05/21 1853 03/05/21 2117 03/06/21 0101 03/06/21 0516 BP: (!) 160/107 (!) 174/114 135/85 (!) 147/94 Pulse: 112 108 118 Resp: 18 18 18 Temp: 99.1 F (37.3 C) 97.5 F (36.4 C) 98.4 F (36.9 C) TempSrc: Temporal Temporal Temporal SpO2: 97% 95% 95% Weight: Height: Physical Exam Vitals and nursing note reviewed. Constitutional: General: She is awake. Appearance: Normal appearance. Comments: WDWF laying in bed in NAD HENT: Head: Normocephalic and atraumatic. Nose: Nose normal. Eyes: General: Lids are normal. Extraocular Movements: Extraocular movements intact. Pupils: Pupils are equal, round, and reactive to light. Neck: Comments: Trachea midline Cardiovascular: Rate and Rhythm: Tachycardia present. Heart sounds: Normal heart sounds, S1 normal and S2 normal. Pulmonary: Effort: Pulmonary effort is normal. Breath sounds: Normal breath sounds. Abdominal: General: Bowel sounds are normal. Palpations: Abdomen is soft. There is no hepatomegaly or splenomegaly. Musculoskeletal: Cervical back: Full passive range of motion without pain. Right lower leg: No edema. Left lower leg: No edema. Neurological: Mental Status: She is alert and oriented to person, place, and time. Psychiatric: Mood and Affect: Affect is flat. Renal Panel: Recent Labs 03/05/21 0320 03/05/21 1358 03/06/21 0005 NA 137 130* 134* K 3.8 4.9 3.9 CL 103 103 104 CO2 23 19* 20* PHOS 4.8* 5.3* 3.3 BUN 14 17 15 CREATININE 0.59 0.79 0.44* MG 2.2 2.8* 2.2 Glucose: Recent Labs 03/05/21 0321 03/05/21 0932 03/05/21 1527 03/06/21 0916 POCGLU 100 97 98 110* Assessment: Malnutrition -Patient meets ASPEN guidelines for severe malnutrition in the setting of acute illness with less than 50% intake for 5 or more days, and weight loss greater than 5% over 1 month -Patient at risk for refeeding syndrome, will start at 20 kcals/kg IBW and advance to goal kcals asable, see calculations below -TPN initiated 03/04/21, increased to goal kcals 03/05/21 -will change to 16 hour cycle today Electrolytes -hyperphosphatemia, now decreased, will now need to increase slightly -potassium improved -sodium decreased slightly, adding NaPO4 -mag stable Blood Glucose -initiated MBS checks to see how blood sugar reacts to TPN -goal MBS while on TPN is <180 -MBS consistently <100 -MBS checks discontinued 03/05/21 Nausea/Vomiting -Has caused frequent visits to ER -On and off since 12/2020 -currently being worked up, had EGD on 02/28/21 that demonstrated evidence of LA grade B esophagitis, significant amount of bile was seen in the stomach; this was suctioned, antral erythema with evidence of erosions but no ulcerations; gastric biopsies obtained to check for H. Pylori, normal D1 &D2 with normal appearing villi, and no evidence of gastric / duodenal outlet obstruction. -patient unable to tolerate Dobbhoff placement, refuses reattempt -needs gastric emptying study, attempted twice and failed d/t patient being unable to tolerate any PO -psychiatry consulted for concern of eating disorder, felt to be very low suspicion that this is the cause -palliative care consulted for symptom management -Surgery consult for recommendations for PEG tube, would not recommend PEG tube, signed off Left Ureter Injury -left ureter thermal injury during in OR on 12/18/20 -stented on 12/22/20 -stent migrated, removed and replaced 12/26/20 -removed at [facility] -needed new stent placed on 02/12/21 due to stricture -urology following, stent still in appropriate position Hx Endometrial CA -S/P robotic hysterectomy with bilateral salpingo oophorectomy with bilateral pelvic lymph node dissection on 12/18/20. -MRI negative on 03/04 for any evidence of metastatic disease PLAN SUMMARY, and as above: -continue TPN, tolerating at goal kcals -change to 16 hour cycle -electrolyte changes as above TPN macronutrient calculations: Ht: 5' 9 Actual BW: 192lbs/ 87.5 kgs IBW: 145 lbs/ 65.9 kgs Start TOTAL Kcal = 1318 @ 20 Kcal/kg of IBW Goal TOTAL Kcal = 1648 @ 25 Kcal/kg of IBW Protein: 118grams @ 1.8 grams/kg of IBW for 472 kcal Carbs: Start- 451 Kcal Lipid: Start- 395 Kcal Goal- 690 Kcal Goal- 490 Kcal Associated attestation - Purnima Clarke MD - 03/06/2021 6:52 PM EDT I have personally seen and examined the patient along with PRAKASH Baker CNP. I reviewed the chart including orders, labs, and imaging. I have discussed the patient's plan of action and agree with her findings and plan as documented in her note below. Tolerated goal kcals, sugars good, lytes stable. Ok to change to cycle. TPN remains SHORT TERM OPTION ONLY PT HAS FUNCTIONAL GUT. * Hiral Kennedy DO - 03/06/2021 8:04 AM EDT Images from the original note were not included. Med Team Progress Note Addis Torres : 2000(21 y.o.) Date: March 06, 2021 Med Team: D Attending: Dr. Long Chief Complaint: N/V Subjective: - No acute events overnight. - Laying comfortably in bed. Continues to endorse nausea. Reports three episodes of emesis overnight after eating two sandwiches. Compazine is helping with nausea. Not up for trying GES again at the moment. No further questions, complaints or concerns at this time. Review of Systems Constitutional: Negative for chills, diaphoresis, fatigue and fever. HENT: Negative for rhinorrhea, sore throat and trouble swallowing. Eyes: Negative for visual disturbance. Respiratory: Negative for cough, chest tightness, shortness of breath and wheezing. Cardiovascular: Negative for chest pain and palpitations. Gastrointestinal: Positive for abdominal pain, nausea and vomiting. Negative for constipation and diarrhea. Endocrine: Negative for polyuria. Genitourinary: Negative for dysuria and hematuria. Musculoskeletal: Negative for arthralgias and myalgias. Skin: Negative for color change and pallor. Neurological: Negative for dizziness, weakness, light-headedness, numbness and headaches. Hematological: Negative for adenopathy. Psychiatric/Behavioral: Negative for agitation, behavioral problems, confusion and decreased concentration. Scheduled Meds: OLANZapine 5 mg Oral Nightly insulin lispro 0-6 Units Subcutaneous TID WC lidocaine 1 % injection 5 mL Intradermal Once sodium chloride flush 10 mL Intravenous 2 times per day sodium chloride flush 10 mL Intravenous 2 times per day heparin flush 250 Units Intravenous 2 times per day sodium chloride flush 10 mL Intracatheter Q12H heparin flush 250 Units Intracatheter Q12H sennosides-docusate sodium 2 tablet Oral BID bisacodyl 10 mg Rectal Daily mirtazapine 15 mg Oral Nightly erythromycin 250 mg Intravenous Q8H sodium chloride flush 5-40 mL Intravenous 2 times per day polyethylene glycol 17 g Oral Daily trospium 20 mg Oral BID AC sodium chloride flush 5-40 mL Intravenous 2 times per day pantoprazole 40 mg Intravenous Daily And sodium chloride (PF) 10 mL Intravenous Daily tamsulosin 0.4 mg Oral Daily Continuous Infusions: PN-Adult 3 IN 1 Central Line (Custom) 85 mL/hr at 03/05/21 1750 dextrose sodium chloride sodium chloride PRN meds used in last 24hrs: dilaudid Objective: BP (!) 147/94 Pulse 118 Temp 98.4 F (36.9 C) (Temporal) Resp 18 Ht 5' 9.02 (1.753 m) Wt 192 lb 12.8 oz (87.5 kg) LMP 11/09/2020 (Approximate) SpO2 95% BMI 28.46 kg/m Physical Exam Vitals and nursing note reviewed. Constitutional: General: She is not in acute distress. Appearance: She is diaphoretic. Cardiovascular: Rate and Rhythm: Normal rate and regular rhythm. Pulses: Normal pulses. Heart sounds: Normal heart sounds. No murmur heard. No friction rub. No gallop. Pulmonary: Effort: Pulmonary effort is normal. Breath sounds: Normal breath sounds. Abdominal: General: Bowel sounds are normal. Palpations: Abdomen is soft. Tenderness: There is no abdominal tenderness. Musculoskeletal: Right lower leg: No edema. Left lower leg: No edema. Skin: General: Skin is warm. Capillary Refill: Capillary refill takes less than 2 seconds. Neurological: Mental Status: She is alert and oriented to person, place, and time. Psychiatric: Mood and Affect: Mood normal. Behavior: Behavior normal. [facility] Labs within last 24 hours Lab Results Component Value Date/Time WBC 8.2 03/06/2021 12:05 AM Hemoglobin 11.7 03/06/2021 12:05 AM Hematocrit 35.2 03/06/2021 12:05 AM Platelets 243 03/06/2021 12:05 AM MCV 78.9 (L) 03/06/2021 12:05 AM Lab Results Component Value Date/Time Sodium 134 (L) 03/06/2021 12:05 AM Potassium 3.9 03/06/2021 12:05 AM Chloride 104 03/06/2021 12:05 AM CO2 20 (L) 03/06/2021 12:05 AM BUN 15 03/06/2021 12:05 AM CREATININE 0.44 (L) 03/06/2021 12:05 AM CREATININE 0.79 03/05/2021 01:58 PM Glucose 108 (H) 03/06/2021 12:05 AM Calcium 9.0 03/06/2021 12:05 AM Magnesium 2.2 03/06/2021 12:05 AM Phosphorus 3.3 03/06/2021 12:05 AM Lab Results Component Value Date/Time AST 21 03/06/2021 12:05 AM ALT 13 03/06/2021 12:05 AM Total Protein 7.8 03/06/2021 12:05 AM Albumin,Serum 4.3 03/06/2021 12:05 AM Total Bilirubin 0.6 03/06/2021 12:05 AM Alkaline Phosphatase 52 03/06/2021 12:05 AM Assessment and Plan: Intractable nausea and vomiting Malnutrition 2/2 above - EGD remarkable for LA type B esophagitis, erosions of antrum seen, biopsy of antrum obtained negative - psychology consulted early in course 2/2 concern for eating disorder as it seems patient afraid/hesitant to eat, they did not feel eating disorder was likely - CT A/P and MRI brain not concerning for metastasis - Last intake PO was over a week ago, TPN started 03/04 - BMP, Mg, Phos, ionized Ca BID to watch for refeeding syndrome - palliative care following for symptom management, appreciate recs - discontinued haldol and remeron - restarted compazine 10 mg q6h prn - started zyprexa 5 mg qhs and ativan q6h prn Abdominal pain, stable - Etiology repeating retching along with post-operative from L stent placement 02/13 - Palliative following for symptom control - will space out oxycodone and add scheduled tylenol PO. If unable to tolerate PO will change to IV. Plan to discontinue oxycodone prn tomorrow. Elevated blood pressures, improving - likely 2/2 to acute distress for n/v, abdominal pain - hydralazine and labetalol prn per BP parameters - will need follow up outpatient Ureteral injury (intraoperative) with ureteral stricture with L stent placed (02/12) - Stent in appropriate position per 02/26 KUB and 02/22 CT ABD WO (L-sided hydronephrosis/ureter has resolved) and unlikely to be causing N/V - Pt denied PNT and will continue with stent in place; will f/u with Dr. Kinsey 03/13/2021 Hx of endometrial adenocarcinoma hysterectomy with bilateral salpingo- oophorectomy and sentinel lymph node sample - Total hysterectomy with salpingectomy 12/18/2020 with thermal injury to L ureter and initial stentplaced 12/28 - Stable - Goals of Care: FULL CODE - DVT Prophylaxis: SCDs - GI Prophylaxis: Protonix daily - Diet: Clear Liquids as tolerated, TPN Associated attestation - David Long MD - 03/06/2021 4:23 PM EDT I have discussed the care of Addis Torres with the medical student and/or resident. I have personally taken a history, examined the patient, and performed the associated medical decision making activities. I have reviewed & verified the attested documentation. Unless otherwise noted below, this documentation reflects the history, physical exam, and medical decision making that I performed myself. Please see note for my personal highlights or additions in Green. Patient seen and examined by myself at 0927 on 03/06/21 Farah Changes to Care Plan: - patient willing to try gastric emptying study tomorrow - may be able to change IV dilaudid for IV tylenol in next 1-2 days. - tolerating TPN well without signs of refeeding syndrome so far. May be able to transition to daily BMP/Mag/Phos if remains stable overnight. Pager: [phone] Today is my last day of attending on this service - attending will change to Dr. Amado Miles as of 03/07/2021 * Linda Chávez, TRAFFIC MANAGER - DRIP MOLDER - 03/05/2021 2:04 PM EDT Images from the original note were not included. Palliative Care Follow-Up Chief Complaint: Addis Torres is a 21 y.o. female with chief complaint of intractable nausea andvomiting Palliative care is actively following this patient. Assessment/Plan Assessment/Plan Palliative Care Encounter/Goals of Care -Patient emergency contact is Angelica Torres [phone] -Discussed medical update with mother, Angelica and Addis today. -Discussed results of scans. Nothing looks suspicious for recurrence of metastatic disease-->very thankful for this. -Addis told me she was able to take some pills and also stated she ate half a PB&J sandwich as well as 2 ensures. but now endorses nausea. -We talked about medication adjustments, as below and hopeful for gastric emptying study to get us a solid answer and hopeful diagnosis in coming days. - will continue to follow for ongoing monitoring of progression of Pain, Nausea and Constipation aswell as for appropriateness for hospice care due to Protein Calorie Malnutrition - will continue treatment including compazine, zyprexa, and ativan Nausea/Vomiting -Per patient has gone on for weeks, but per mother has been on and off since December (since ureteral stents placed) -02-28 EGD-->LA Grade B esophagitis, antral erythema, evidence of erosions, no ulcerations-->check for H. Pylori. No evidence of gastric/duodenal outlet obstruction. -Scans for concerning malignancy-->MRI and CT all negative for recurring malignancy. -03-03 and 03-04, failed GES. Hopeful to try again in coming days. -Erythromycin 250 mg Q8-->H. Pylori coverage. -D/c haldol-->patient discussing that this is not helpful for her, compazine worked better. -Restart Compazine 10 mg Q6 PRN -Start Zyprexa 5 mg Q HS (assist with nausea and anxiety component) -Start Ativan 0.25 mg Q6 PRN anxiety-->thinking nausea/vomiting has anxiety component. -D/C remeron -Continue to monitor for symptoms. Malnutrition -Per mother, patient has lost 30 lbs in past 2 months. -Previously not able to take PO-->today she ate half PB&J sandwich and drank 2 ensures, however now feels nauseated. -03-04-->PICC placed, plans to start TPN for nutrition. -General surgery saw in consult-->would not recommend PEG. I would agree with this. Cannot rely on her gut at this point especially without reliable GES. Concern for Constipation/obstruction -Continued to endorse vomiting -Remains on bowel regimen having regular bowel movements. -Last BM-->03-04 -Continue to monitor. Hx Endometrial CA, s/p hysterectomy (no chemo/radiation) -Total hysterectomy with bilateral salpingo-oophorectomy and sentinel lymph node biopsy 12-18-20 -Suffered thermal injury to L ureter and initial stent placed 12-28 -03-03 CT abdomen/pelvis completed-->no concern for metastatic disease -MRI brain ordered-->no mass seen. Hx Ureteral injury with ureteral stricture -S/p stent placement as above. -Follows with urology-->consulted this admission. -02-26 KUB-->stent in appropriate position. -Keeping f/u with Dr. Kinsey 03-13-21. Active Hospital Problems Diagnosis Date Noted Anxiety disorder [F41.9] Renal colic [N23] Intractable nausea and vomiting [R11.2] 02/23/2021 Time/Communication Greater than 51% of time spent, total 35 minutes in counseling and coordination of care at the bedside regarding Symptom Management Discharge planning: to be determined Patient meets criteria for general inpatient hospice care including the following: N/A- Palliative Care Patient Referrals to: none today Discussed patient and the plan of care with the other interdisciplinary team (IDT) members of Palliative Team, and with Primary Attending, Patient, Family and Floor Nurse I have discussed the patient's case and plan of care with my collaborating physician Dr. Pelayo Subjective: Subjective/Events She is seen today, Patient is lying in bed, appearing in NAD. Endorses severe nausea. No vomiting seen, but sitting up holding green emesis bag. Abdominal pain reported today 02/14. Receiving dilaudidfrequently. TPN running. Meds adjusted as above. No other events overnight. No CP, palpitations, nodizziness, numbness, tingling. INTERIM-->Ms. Torres is a 21 year old female with PMH of PCOS and endometrial cancer (s/p partialhysterectomy). Presents to the ER with CC of intractable NV from OSH. She had ureteral stents placed 2 weeks ago, had this reaction after previous stent placement. NV relieved in ER with Zofran. Urology called to see patient in ER, stated to keep follow-up appointment OP, continue bactrim after stent placement. Flank pain relieved with pain medication. Stent placement verified with KUB. Continuedto have NV, even with medication recommended per primary team. Seen by GI, not tolerating any PO intake 02-28-21 EGD completed-->LA Grade B esophagitis, antral erythema, evidence of erosions, no ulcerations-->check for H. Pylori. No evidence of gastric/duodenal outlet obstruction. GI recommended palliative care consult at this time for symptom management if no improvement. 02-28-21-->Attempted placement of DHT, patient did not tolerate. Refusing TPN and replacement of DHT. 03-02-21-->planed for gastric emptying study on 03-03, patient did not tolerate. Palliative care consulted for symptom management. Pain Assessment (If Pain Scale >0) N/a no pain reported on my exam Goals of care:To Be Determined Advance Directives: full code Surrogate: Parent Prognosis: depends upon goals Spiritualassessment: No spiritual distress identified Bereavement and grief: To Be Determined Past Medical History: Diagnosis Date Cancer (HCC) endometrial History of blood transfusion oct 2020 PCOS (polycystic ovarian syndrome) Past Surgical History: Procedure Laterality Date CYSTOSCOPY 12/26/2020 C and P DILATION AND CURETTAGE OF UTERUS 11/08/2020 ENDOSCOPY, COLON, DIAGNOSTIC 02/28/2021 HYSTERECTOMY, TOTAL ABDOMINAL 12/18/[address] Escobedo HYSTEROSCOPY 11/08/2020 SALPINGECTOMY Bilateral 12/18/2020 Dr. Escobedo URETER STENT PLACEMENT Left 02/12/2021 Family History Problem Relation Age of Onset Diabetes Mother High Blood Pressure Mother Colon Cancer Maternal Aunt Breast Cancer Maternal Aunt Cancer Maternal Aunt ovarian Breast Cancer Maternal Grandmother Unable to obtain family history due to N/A- family history available Allergies Allergen Reactions Morphine Shortness Of Breath Promethazine-Phenylephrine Nausea And Vomiting ROS: See palliative care ROS/ESAS below; see HPI Review of Systems Social history: [place] status: no Marital status: Single Living status: alone Work history: n/a Family Meeting: Participants:Parent and Patient Family meeting was held to discuss:Goals of Care and Symptom Management Objective: Physical Exam BP 137/87 Pulse 98 Temp 98 F (36.7 C) (Temporal) Resp 18 Ht 5' 9.02 (1.753 m) Wt 192 lb 12.8 oz (87.5 kg) LMP 11/09/2020 (Approximate) SpO2 95% BMI 28.46 kg/m Physical Exam Vitals and nursing note reviewed. Constitutional: General: She is awake. She is not in acute distress. Appearance: She is ill-appearing. HENT: Head: Normocephalic and atraumatic. Nose: Nose normal. Mouth/Throat: Mouth: Mucous membranes are moist. Pharynx: Oropharynx is clear. No oropharyngeal exudate or posterior oropharyngeal erythema. Eyes: General: Right eye: No discharge. Left eye: No discharge. Extraocular Movements: Extraocular movements intact. Pupils: Pupils are equal, round, and reactive to light. Cardiovascular: Rate and Rhythm: Regular rhythm. Tachycardia present. Pulses: Normal pulses. Heart sounds: Normal heart sounds. No murmur heard. Pulmonary: Effort: Pulmonary effort is normal. No respiratory distress. Breath sounds: Normal breath sounds. Abdominal: General: Bowel sounds are normal. There is distension. Palpations: Abdomen is soft. Tenderness: There is no abdominal tenderness. Comments: Nausea and reported vomiting Musculoskeletal: Cervical back: Normal range of motion and neck supple. Right lower leg: No edema. Left lower leg: No edema. Skin: General: Skin is warm and dry. Capillary Refill: Capillary refill takes less than 2 seconds. Coloration: Skin is pale. Neurological: Mental Status: She is alert and oriented to person, place, and time. Mental status is at baseline. Psychiatric: Mood and Affect: Affect is flat. Behavior: Behavior is withdrawn. [place] Symptom Assessment Score [place] Score Pain Score 0 Tiredness Score 0 Nausea Score 9 Depression Score 0 Anxiety Score 3 Drowsiness Score 0 Anorexia Score (0= eating well, 10= not eating) 9 Wellbeing Score (10= worst sense of well-being) 3 Constipation 0 Dyspnea Score (0= no shortness of breath) 0 FLACC Scale (For Pain Assessment of the Non-Verbal Patient) N/a patient verbal pain reported in LLQ abdomen 6/10 on exam Assessed by: provider. All other systems were reviewed and are negative. CurrentMedications: Inpatient medications reviewed: yes Home Medications reviewed: no 24 Hour PRN Meds: hydromorphone 0.25 mg IV x5 Results/Verification of Data Review Objective data reviewed: labs, images, records, medication use, vitals and chart Data in Support of Terminal Illness: Is patient hospice appropriate? no * Hiral Kennedy, - 03/05/2021 10:03 AM EDT Images from the original note were not included. Med Team Progress Note Addis Torres : 2000(21 y.o.) Date: March 05, 2021 Med Team: Mando Attending: Dr. Long Chief Complaint: N/V Subjective: - No acute events overnight. - This morning patient laying comfortably in bed with eyes closed. Interval hx unchanged from day prior. Was able to sleep through the night without vomiting. Feels nausea and pain are being managed adequately on current regimen. Feels hungry. No further questions, complaints or concerns at this time. Review of Systems Constitutional: Negative for chills, diaphoresis, fatigue and fever. HENT: Negative for rhinorrhea, sore throat and trouble swallowing. Eyes: Negative for visual disturbance. Respiratory: Negative for cough, chest tightness, shortness of breath and wheezing. Cardiovascular: Negative for chest pain and palpitations. Gastrointestinal: Positive for abdominal pain and nausea. Negative for constipation, diarrhea and vomiting. Endocrine: Negative for polyuria. Genitourinary: Negative for dysuria and hematuria. Musculoskeletal: Negative for arthralgias and myalgias. Skin: Negative for color change and pallor. Neurological: Negative for dizziness, weakness, light-headedness, numbness and headaches. Hematological: Negative for adenopathy. Psychiatric/Behavioral: Negative for agitation, behavioral problems, confusion and decreased concentration. Scheduled Meds: calcium gluconate IVPB 1,000 mg Intravenous Once lidocaine 1 % injection 5 mL Intradermal Once sodium chloride flush 10 mL Intravenous 2 times per day sodium chloride flush 10 mL Intravenous 2 times per day heparin flush 250 Units Intravenous 2 times per day sodium chloride flush 10 mL Intracatheter Q12H heparin flush 250 Units Intracatheter Q12H sennosides-docusate sodium 2 tablet Oral BID bisacodyl 10 mg Rectal Daily haloperidol lactate 0.5 mg Intravenous 3 times per day mirtazapine 15 mg Oral Nightly erythromycin 250 mg Intravenous Q8H metoclopramide 10 mg Intravenous Q6H sodium chloride flush 5-40 mL Intravenous 2 times per day polyethylene glycol 17 g Oral Daily trospium 20 mg Oral BID AC sodium chloride flush 5-40 mL Intravenous 2 times per day pantoprazole 40 mg Intravenous Daily And sodium chloride (PF) 10 mL Intravenous Daily tamsulosin 0.4 mg Oral Daily Continuous Infusions: PN-Adult 3 IN 1 Central Line (Custom) 85 mL/hr at 03/04/211926 sodium chloride sodium chloride PRN meds used in last 24hrs: dilaudid Objective: BP 137/87 Pulse 98 Temp 98 F (36.7 C) (Temporal) Resp 18 Ht 5' 9.02 (1.753 m) Wt 192 lb 12.8 oz (87.5 kg) LMP 11/09/2020 (Approximate) SpO2 95% BMI 28.46 kg/m Physical Exam Vitals and nursing note reviewed. Constitutional: General: She is not in acute distress. Appearance: She is diaphoretic. Cardiovascular: Rate and Rhythm: Normal rate and regular rhythm. Pulses: Normal pulses. Heart sounds: Normal heart sounds. No murmur heard. No friction rub. No gallop. Pulmonary: Effort: Pulmonary effort is normal. Breath sounds: Normal breath sounds. Abdominal: General: Bowel sounds are normal. Palpations: Abdomen is soft. Tenderness: There is no abdominal tenderness. Musculoskeletal: Right lower leg: No edema. Left lower leg: No edema. Skin: General: Skin is warm. Capillary Refill: Capillary refill takes less than 2 seconds. Neurological: Mental Status: She is alert and oriented to person, place, and time. Psychiatric: Mood and Affect: Mood normal. Behavior: Behavior normal. [facility] within last 24 hours Lab Results Component Value Date/Time WBC 7.8 03/05/2021 03:20 AM Hemoglobin 11.2 (L) 03/05/2021 03:20 AM Hematocrit 34.7 (L) 03/05/2021 03:20 AM Platelets 227 03/05/2021 03:20 AM MCV 81.6 03/05/2021 03:20 AM Lab Results Component Value Date/Time Sodium 137 03/05/2021 03:20 AM Potassium 3.8 03/05/2021 03:20 AM Chloride 103 03/05/2021 03:20 AM CO2 23 03/05/2021 03:20 AM BUN 14 03/05/2021 03:20 AM CREATININE 0.59 03/05/2021 03:20 AM Glucose 82 03/05/2021 03:20 AM Calcium 9.2 03/05/2021 03:20 AM Magnesium 2.2 03/05/2021 03:20 AM Phosphorus 4.8 (H) 03/05/2021 03:20 AM Lab Results Component Value Date/Time AST 22 03/05/2021 03:20 AM ALT 13 03/05/2021 03:20 AM Total Protein 7.4 03/05/2021 03:20 AM Albumin,Serum 4.0 03/05/2021 03:20 AM Total Bilirubin 0.9 03/05/2021 03:20 AM Alkaline Phosphatase 44 03/05/2021 03:20 AM Lab Results Component Value Date/Time Triglycerides 124 03/05/2021 03:20 AM Assessment and Plan: Intractable nausea and vomiting Malnutrition 2/2 above - EGD remarkable for LA type B esophagitis, erosions of antrum seen, biopsy of antrum obtained negative - psychology consulted early in course 2/2 concern for eating disorder as it seems patient afraid/hesitant to eat, they did not feel eating disorder was likely - CT A/P not concerning for metastasis - MRI brain W/WO contrast unremarkable - Last intake PO was over a week ago, TPN started yesterday - BMP, Mg, Phos, ionized Ca BID to watch for refeeding syndrome - discontinued phenergan as patient feels worsens symptoms - palliative care following for symptom management, appreciate recs Abdominal pain, stable - Etiology repeating retching along with post-operative from L stent placement 02/13 - Palliative following for symptom control Elevated blood pressures, improving - likely 2/2 to acute distress for n/v, abdominal pain - hydralazine and labetalol prn per BP parameters - will need follow up outpatient 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 Kinsey 03/13/2021 Hx of endometrial adenocarcinoma hysterectomy with bilateral salpingo- oophorectomy and sentinel lymph node sample - Total hysterectomy with salpingectomy 12/18/2020 with thermal injury to L ureter and initial stentplaced 12/28 - Stable - Goals of Care: FULL CODE - DVT Prophylaxis: SCDs - GI Prophylaxis: Protonix daily - Diet: Clear Liquids as tolerated, TPN Associated attestation - David Long MD - 03/05/2021 2:48 PM EDT I have discussed the care of Addis Torres with the medical student and/or resident. I have personally taken a history, examined the patient, and performed the associated medical decision making activities. I have reviewed & verified the attested documentation. Unless otherwise noted below, this documentation reflects the history, physical exam, and medical decision making that I performed myself. Please see note for my personal highlights or additions in [place]. Patient seen and examined by myself at 1227 on 03/05/21 Looks MUCH better today. In new room with a window. Mother at bedside today during my evaluation. Patient gave verbal consent to discuss all aspects of her medical history, care, and treatment plan with her present. Patient tolerated part of a sandwich today and is requesting regular diet and ensure. Still small bites and doesn't think able tolerate gastric emptying study yet due to nausea and early satiety withamount of food radiology asking her to eat. Farah Changes to Care Plan: - tolerated TPN - start BID BMP/Mag/Phos to monitor for refeeding syndrome. TPN starting at lessened total caloriesper Dr. Clarke as well. If in future there is trouble keeping electrolytes normal, will need telemetry for monitoring. - team to d/w palliative regarding anti-emetic regimen. ? In haldol. QTc remains well under 500 - still need gastric emptying, but likely will need to get nausea more controlled first as she hasn't tolerated in past. - nausea per palliative - TPN per TPN Team. - Gen Surg signed off for now. - I am hopeful that in next few days patient will be able to tolerate more food via PO and will be able to stop the TPN. I truly appreciate all the care, mgnt, & recommendations given by consultants and care team. Pager: [phone] I spent over 51% total time of 33 minutes counseling (or coordinating care). Discussed current planof care with patient. Coordinated care with resident team. Also d/w pharmacy and patient's mother. * Daniel Henriquez MD - 03/05/2021 9:05 AM EDT Images from the original note were not included. Department of Surgery Surgical Service - 1 Daily Progress Note PATIENT NAME: Addis Torres : 2000 ATTENDING PHYSICIAN: Rachael Butler DO ADMIT DATE: 02/23/2021 TODAY'S DATE: 03/05/2021 SUBJECTIVE No acute events overnight. Afebrile, hemodynamically stable. Patient denies abdominal pain. Endorses some nausea still with some improvement. Denies vomiting. Endorses flatus. Tolerating TPN. OBJECTIVE VITALS: BP 137/87 Pulse 98 Temp 98 F (36.7 C) (Temporal) Resp 18 Ht 5' 9.02 (1.753 m) Wt192 lb 12.8 oz (87.5 kg) LMP 11/09/2020 (Approximate) SpO2 95% BMI 28.46 kg/m PHYSICAL EXAM: CONSTITUTIONAL: NAD, A&O X3. CHEST: Resp effort easy and unlabored ABDOMEN: soft, non-distended, non-tender, Peritoneal signs absent, well-healed abdominal incisions INTAKE/OUTPUT: No intake/output data recorded. No intake/output data recorded. Data Recent Labs 03/03/214 03/04/21 0427 03/05/21 0320 WBC 8.1 7.9 7.8 HGB 11.9 12.0 11.2* HCT 35.8 36.1 34.7* PLT 290 272 227 Recent Labs 03/03/21 0254 03/04/21 0427 03/05/21 0320 NA 137 137 137 K 4.0 4.3 3.8 CL 103 103 103 CO2 26 23 23 BUN 3* 3* 14 CREATININE 0.58 0.59 0.59 GLUCOSE 110* 103* 82 Recent Labs 03/03/214 03/04/21 0427 03/05/21 0320 AST 19 19 22 ALT 9 11 13 BILITOT 0.8 0.9 0.9 ALKPHOS 49 54 44 Imaging Pertinent imaging reviewed. Current Inpatient Medications Current Facility-Administered Medications: calcium gluconate 1,000 mg in dextrose 5 % 100 mL IVPB, 1,000 mg, Intravenous, Once lidocaine 1 % injection 5 mL, 5 mL, Intradermal, Once sodium chloride flush 0.9 % injection 10 mL, 10 mL, Intravenous, 2 times per day sodium chloride flush 0.9 % injection 10 mL, 10 mL, Intravenous, 2 times per day sodium chloride flush 0.9 % injection 10 mL, 10 mL, Intravenous, PRN heparin flush 100 UNIT/ML injection 250 Units, 250 Units, Intravenous, 2 times per day heparin flush 100 UNIT/ML injection 250 Units, 250 Units, Intravenous, PRN PN-Adult 3 IN 1 Central Line (Custom), , Intravenous, Continuous TPN sodium chloride flush 0.9 % injection 10 mL, 10 mL, Intracatheter, Q12H heparin flush 100 UNIT/ML injection 250 Units, 250 Units, Intracatheter, Q12H sodium chloride flush 0.9 % injection 10 mL, 10 mL, Intracatheter, PRN heparin flush 100 UNIT/ML injection 250 Units, 250 Units, Intracatheter, PRN sennosides-docusate sodium (SENOKOT-S) 8.6-50 MG tablet 2 tablet, 2 tablet, Oral, BID bisacodyl (DULCOLAX) suppository 10 mg, 10 mg, Rectal, Daily promethazine (PHENERGAN) injection 6.25 mg, 6.25 mg, Intravenous, Q6H PRN haloperidol lactate (HALDOL) injection 0.5 mg, 0.5 mg, Intravenous, 3 times per day hydrOXYzine (VISTARIL) capsule 25 mg, 25 mg, Oral, TID PRN mirtazapine (REMERON KRISTYN-TAB) disintegrating tablet 15 mg, 15 mg, Oral, Nightly erythromycin (ERYTHROCIN) 250 mg in sodium chloride 0.9 % 100 mL IVPB, 250 mg, Intravenous, Q8H metoclopramide (REGLAN) injection 10 mg, 10 mg, Intravenous, Q6H hydrALAZINE (APRESOLINE) injection 10 mg, 10 mg, Intravenous, Q6H PRN labetalol (NORMODYNE;TRANDATE) injection 10 mg, 10 mg, Intravenous, Q6H PRN HYDROmorphone (DILAUDID) injection 0.25 mg, 0.25 mg, Intravenous, Q4H PRN sodium chloride flush 0.9 % injection 5-40 mL, 5-40 mL, Intravenous, 2 times per day sodium chloride flush 0.9 % injection 5-40 mL, 5-40 mL, Intravenous, PRN 0.9 % sodium chloride infusion, 25 mL, Intravenous, PRN polyethylene glycol (GLYCOLAX) packet 17 g, 17 g, Oral, Daily trospium (SANCTURA) tablet 20 mg, 20 mg, Oral, BID AC sodium chloride flush 0.9 % injection 5-40 mL, 5-40 mL, Intravenous, 2 times per day sodium chloride flush 0.9 % injection 5-40 mL, 5-40 mL, Intravenous, PRN 0.9 % sodium chloride infusion, 25 mL, Intravenous, PRN pantoprazole (PROTONIX) injection 40 mg, 40 mg, Intravenous, Daily AND sodium chloride (PF) 0.9% injection 10 mL, 10 mL, Intravenous, Daily tamsulosin (FLOMAX) capsule 0.4 mg, 0.4 mg, Oral, Daily ASSESSMENT AND PLAN 21 y.o. female with intractable nausea and vomiting -Would not recommend PEG placement -Continue anti-emetics -Continue trial of TPN -General surgery will sign off. Thank you for this consult. We appreciate the opportunity to care for this patient. Please reach out with questions and concerns. Daniel Henriquez MD 03/05/2021 9:05 AM * Arlet Salinas APRN - DRIP MOLDER - 03/05/2021 7:20 AM EDT Images from the original note were not included. Nutrition Progress Note Addis Torres : 2000(21 y.o.) Date: March 05, 2021 CC: TPN Interval events: Patient moved to H5. Still with very flat affect. Was able to eat half a sandwich earlier but stillc/o nausea. Surgery signed off. She still feels as though she is unable to tolerate gastric emptying test. Diet: ADULT DIET; Regular PN-Adult 3 IN 1 Central Line (Custom) I/Os: No intake or output data in the 24 hours ending 03/05/21 0721 Weight: ABW: Admission weight: 193 lb (87.5 kg) Body mass index is 28.46 kg/m . Line: PICC L basilic DL @51cm Date placed: 03/04/21 Objective: Vitals: 03/04/21 0943 03/04/21 1127 03/04/21 1931 03/05/21 0543 BP: (!) 141/96 132/87 137/87 Pulse: 113 106 98 Resp: 18 14 18 Temp: 98.6 F (37 C) 98.6 F (37 C) 98 F (36.7 C) TempSrc: Temporal Temporal Temporal SpO2: 99% 98% 95% Weight: 192 lb 12.8 oz (87.5 kg) Height: Physical Exam Vitals and nursing note reviewed. Constitutional: Comments: WD WF laying in bed in NAD. HENT: Head: Normocephalic and atraumatic. Nose: Nose normal. Mouth/Throat: Lips: [place]. Mouth: Mucous membranes are dry. Eyes: General: Lids are normal. Extraocular Movements: Extraocular movements intact. Pupils: Pupils are equal, round, and reactive to light. Neck: Comments: Trachea midline Cardiovascular: Rate and Rhythm: Regular rhythm. Tachycardia present. Heart sounds: Normal heart sounds, S1 normal and S2 normal. Pulmonary: Effort: Pulmonary effort is normal. Breath sounds: Normal breath sounds. Abdominal: General: Bowel sounds are normal. Palpations: Abdomen is soft. There is no hepatomegaly or splenomegaly. Tenderness: There is abdominal tenderness. Musculoskeletal: Cervical back: Full passive range of motion without pain. Right lower leg: No edema. Left lower leg: No edema. Skin: General: Skin is warm and dry. Capillary Refill: Capillary refill takes less than 2 seconds. Neurological: Mental Status: She is alert and oriented to person, place, and time. Psychiatric: Attention and Perception: Attention normal. Mood and Affect: Affect is flat. Renal Panel: Recent Labs 03/03/21 0254 03/04/21 0427 03/05/21 0320 NA 137 137 137 K 4.0 4.3 3.8 CL 103 103 103 CO2 26 23 23 PHOS 3.9 4.3 4.8* BUN 3* 3* 14 CREATININE 0.58 0.59 0.59 MG 2.1 2.0 2.2 Glucose: Recent Labs 03/05/21 0321 POCGLU 100 Assessment: Malnutrition -Patient meets ASPEN guidelines for severe malnutrition in the setting of acute illness with less than 50% intake for 5 or more days, and weight loss greater than 5% over 1 month -Patient at risk for refeeding syndrome, will start at 20 kcals/kg IBW and advance to goal kcals asable, see calculations below -TPN initiated 03/04/21 Electrolytes -hyperphosphatemia, will decrease kphos -potassium dropped, will add KCl -sodium/mag stable Blood Glucose -initiated MBS checks to see how blood sugar reacts to TPN -goal MBS while on TPN is <180 -MBS consistently <100 -will discontinue MBS checks Nausea/Vomiting -Has caused frequent visits to ER -On and off since 12/2020 -currently being worked up, had EGD on 02/28/21 that demonstrated evidence of LA grade B esophagitis, significant amount of bile was seen in the stomach; this was suctioned, antral erythema with evidence of erosions but no ulcerations; gastric biopsies obtained to check for H. Pylori, normal D1 &D2 with normal appearing villi, and no evidence of gastric / duodenal outlet obstruction. -patient unable to tolerate Dobbhoff placement, refuses reattempt -needs gastric emptying study, attempted twice and failed d/t patient being unable to tolerate any PO -psychiatry consulted for concern of eating disorder, felt to be very low suspicion that this is the cause -palliative care consulted for symptom management -Surgery consult for recommendations for PEG tube, would not recommend PEG tube, signed off Left Ureter Injury -left ureter thermal injury during in OR on 12/18/20 -stented on 12/22/20 -stent migrated, removed and replaced 12/26/20 -removed at [facility] -needed new stent placed on 02/12/21 due to stricture -urology following, stent still in appropriate position Hx Endometrial CA -S/P robotic hysterectomy with bilateral salpingo oophorectomy with bilateral pelvic lymph node dissection on 12/18/20. -MRI negative on 03/04 for any evidence of metastatic disease PLAN SUMMARY, and as above: -continue TPN, increase to goal kcals -monitor for refeeding -discontinue MBS checks -electrolyte changes as above TPN macronutrient calculations: Ht: 5' 9 Actual BW: 192lbs/ 87.5 kgs IBW: 145 lbs/ 65.9 kgs Start TOTAL Kcal = 1318 @ 20 Kcal/kg of IBW Goal TOTAL Kcal = 1648 @ 25 Kcal/kg of IBW Protein: 118grams @ 1.8 grams/kg of IBW for 472 kcal Carbs: Start- 451 Kcal Lipid: Start- 395 Kcal Goal- 690 Kcal Goal- 490 Kcal Associated attestation - Purnima Clarke MD - 03/05/2021 8:21 PM EDT I have personally seen and examined the patient along with PRAKASH Baker CNP. I reviewed the chart including orders, labs, and imaging. I have discussed the patient's plan of action and agree with her findings and plan as documented in her note below. TPN initiated yesterday 03/04/21, pt meets ASPEN criteria for severe malnutrition. TPN remains shortterm option only. Electrolytes reviewed, should be ok to advance kcals to goal. * Linda ChávezAndrew, TRAFFIC MANAGER - DRIP MOLDER - 03/04/2021 3:47 PM EDT Images from the original note were not included. Palliative Care Follow-Up Chief Complaint: Addis Torres is a 21 y.o. female with chief complaint of intractable nausea andvomiting Palliative care is actively following this patient. Assessment/Plan Assessment/Plan Palliative Care Encounter/Goals of Care -Patient emergency contact is Angelica Torres [phone] -Discussed medical update with mother, Angelica and patient today, discussed reasoning for scans including MRI brain and CT abdomen/pelvis. -Mom appearing quite OK with workup, thankful people are actually doing something. -Discussed TPN and needs for nutrition-->mother verbalizes understanding. -Attempting to get patient out of CDU and up to room with windows and on a regular floor. -During exam and conversation, patient extremely flat affect, withdrawn, not participating in conversation. Concerns for depression as well considering all emotional events and prolonged complicated hospital stay. - will continue to follow for ongoing monitoring of progression of Pain, Nausea and Constipation aswell as for appropriateness for hospice care due to Cancer - will continue treatment including haldol, phenergan and laxatives Nausea/Vomiting -Per patient has gone on for weeks, but per mother has been on and off since December (since ureteral stents placed) -02-28 EGD-->LA Grade B esophagitis, antral erythema, evidence of erosions, no ulcerations-->check for H. Pylori. No evidence of gastric/duodenal outlet obstruction. -Concerns for gastroparesis? Recurring malignancy? (workup in place) -03-03-->Failed gastric emptying study (would not eat, fear of vomiting) -03-04-->Failed gastric emptying study (ate 3 bites of sandwich and could not eat anymore, no vomiting) -Erythromycin 250 mg Q8-->H. Pylori coverage. -Start Haldol 0.5 mg IV Q8 scheduled. -Continue Reglan 10 mg Q6 -Continue Phenergan 6.25 mg IV Q6 PRN breakthrough nausea-->patient has refused r/t allergy however, not an allergy to phenergan per discussion with palliative pharmacist. -Continue to follow for symptom management. Malnutrition -Per mother, patient has lost 30 lbs in past 2 months. -Has not had any PO intake here-->has been here 8 days. -Attempted DHT placement, patient did not tolerate-->now does not wish to have replaced. -03-04-->PICC placed, plans to start TPN for nutrition. Concern for Constipation/obstruction -Continued to endorse vomiting and no PO intake. -KUB from 02-26 showing moderate stool burden-->minimal gas. -Remains on bowel regimen having regular bowel movements. -Continue to monitor. Hx Endometrial CA, s/p hysterectomy (no chemo/radiation) -Total hysterectomy with bilateral salpingo-oophorectomy and sentinel lymph node biopsy 12-18-20 -Suffered thermal injury to L ureter and initial stent placed 12-28 CT abdomen/pelvis completed-->no concern for metastatic disease -MRI brain ordered-->await results. -Await results. Hx Ureteral injury with ureteral stricture -S/p stent placement as above. -Follows with urology-->consulted this admission. -02-26 KUB-->stent in appropriate position. -Keeping f/u with Dr. Kinsey 03-13-21. Active Hospital Problems Diagnosis Date Noted Anxiety disorder [F41.9] Renal colic [N23] Intractable nausea and vomiting [R11.2] 02/23/2021 Time/Communication Greater than 51% of time spent, total 25 minutes in counseling and coordination of care at the bedside regarding Symptom Management Discharge planning: to be determined Patient meets criteria for general inpatient hospice care including the following: N/A- Palliative Care Patient Referrals to: none today Discussed patient and the plan of care with the other interdisciplinary team (IDT) members of Palliative Team, and with Primary Attending, Patient, Family and Floor Nurse I have discussed the patient's case and plan of care with my collaborating physician Dr. Gifford Subjective: Subjective/Events She is seen today, Patient is lying in bed, appearing in NAD. She denies pain for me, but endorses severe nausea. No vomiting presently. PICC placed today, plans to start TPN. Failed gastric emptyingstudy again today (ate 3 bites of sandwich and stated she could not eat any more, no vomiting). No other events overnight. No CP, palpitations, no dizziness, numbness, tingling. INTERIM-->Ms. Torres is a 21 year old female with PMH of PCOS and endometrial cancer (s/p partialhysterectomy). Presents to the ER with CC of intractable NV from OSH. She had ureteral stents placed 2 weeks ago, had this reaction after previous stent placement. NV relieved in ER with Zofran. Urology called to see patient in ER, stated to keep follow-up appointment OP, continue bactrim after stent placement. Flank pain relieved with pain medication. Stent placement verified with KUB. Continuedto have NV, even with medication recommended per primary team. Seen by GI, not tolerating any PO intake 02-28-21 EGD completed-->LA Grade B esophagitis, antral erythema, evidence of erosions, no ulcerations-->check for H. Pylori. No evidence of gastric/duodenal outlet obstruction. GI recommended palliative care consult at this time for symptom management if no improvement. 02-28-21-->Attempted placement of DHT, patient did not tolerate. Refusing TPN and replacement of DHT. 03-02-21-->planed for gastric emptying study on 03-03, patient did not tolerate. Palliative care consulted for symptom management. Pain Assessment (If Pain Scale >0) N/a no pain reported on my exam Goals of care:To Be Determined Advance Directives: full code Surrogate: Parent Prognosis: depends upon goals Spiritualassessment: No spiritual distress identified Bereavement and grief: To Be Determined Past Medical History: Diagnosis Date Cancer (HCC) endometrial History of blood transfusion oct 2020 PCOS (polycystic ovarian syndrome) Past Surgical History: Procedure Laterality Date CYSTOSCOPY 12/26/2020 C and P DILATION AND CURETTAGE OF UTERUS 11/08/2020 ENDOSCOPY, COLON, DIAGNOSTIC 02/28/2021 HYSTERECTOMY, TOTAL ABDOMINAL 12/18/[address] Escobedo HYSTEROSCOPY 11/08/2020 SALPINGECTOMY Bilateral 12/18/2020 Dr. Escobedo URETER STENT PLACEMENT Left 02/12/2021 Family History Problem Relation Age of Onset Diabetes Mother High Blood Pressure Mother Colon Cancer Maternal Aunt Breast Cancer Maternal Aunt Cancer Maternal Aunt ovarian Breast Cancer Maternal Grandmother Unable to obtain family history due to N/A- family history available Allergies Allergen Reactions Morphine Shortness Of Breath Promethazine-Phenylephrine Nausea And Vomiting ROS: See palliative care ROS/ESAS below; see HPI Review of Systems Social history: [place] status: no Marital status: Single Living status: alone Work history: n/a Advanced Care Planning Documentation: The patient has capacity to make healthcare and advanced care planning decisions Yes The patient's identified surrogate decision maker is Parent. Discussion participants: Provider, Patient and Parent (Angelica) Advance Care Planning Documents: Healthcare Power of Shoe Stitcher: Not completed Financial Power of Shoe Stitcher: Not completed Living Will:Not completed Code Status: Full code < 16 minutes of this encounter was spent in discussion of goals and coordination of care as documented above. Family Meeting: Participants:Parent and Patient Family meeting was held to discuss:Goals of Care and Symptom Management Objective: Physical Exam BP (!) 141/96 Pulse 113 Temp 98.6 F (37 C) (Temporal) Resp 18 Ht 5' 9.02 (1.753 m) Wt 192 lb 12.8 oz (87.5 kg) LMP 11/09/2020 (Approximate) SpO2 99% BMI 28.46 kg/m Physical Exam Vitals and nursing note reviewed. Constitutional: General: She is awake. She is not in acute distress. Appearance: She is ill-appearing. HENT: Head: Normocephalic and atraumatic. Nose: Nose normal. Mouth/Throat: Mouth: Mucous membranes are moist. Pharynx: Oropharynx is clear. No oropharyngeal exudate or posterior oropharyngeal erythema. Eyes: General: Right eye: No discharge. Left eye: No discharge. Extraocular Movements: Extraocular movements intact. Pupils: Pupils are equal, round, and reactive to light. Cardiovascular: Rate and Rhythm: Regular rhythm. Tachycardia present. Pulses: Normal pulses. Heart sounds: Normal heart sounds. No murmur heard. Pulmonary: Effort: Pulmonary effort is normal. No respiratory distress. Breath sounds: Normal breath sounds. Abdominal: General: Bowel sounds are normal. There is distension. Palpations: Abdomen is soft. Tenderness: There is no abdominal tenderness. Comments: Nausea and reported vomiting Musculoskeletal: Cervical back: Normal range of motion and neck supple. Right lower leg: No edema. Left lower leg: No edema. Skin: General: Skin is warm and dry. Capillary Refill: Capillary refill takes less than 2 seconds. Coloration: Skin is pale. Neurological: Mental Status: She is alert and oriented to person, place, and time. Mental status is at baseline. Psychiatric: Mood and Affect: Affect is flat. Behavior: Behavior is uncooperative and withdrawn. [place] Symptom Assessment Score [place] Score Pain Score 0 Tiredness Score 0 Nausea Score 8 Depression Score 0 Anxiety Score 3 Drowsiness Score 0 Anorexia Score (0= eating well, 10= not eating) 10 Wellbeing Score (10= worst sense of well-being) 0 Constipation 0 Dyspnea Score (0= no shortness of breath) 0 FLACC Scale (For Pain Assessment of the Non-Verbal Patient) N/a patient verbal and no pain reported on my exam Assessed by: provider. All other systems were reviewed and are negative. CurrentMedications: Inpatient medications reviewed: yes Home Medications reviewed: yes 24 Hour PRN Meds: hydromorphone 0.25 mg IV x5 Results/Verification of Data Review Objective data reviewed: labs, images, records, medication use, vitals and chart Data in Support of Terminal Illness: Is patient hospice appropriate? no * Parris Albert RD, LD - 03/04/2021 9:38 AM EDT Comprehensive Nutrition Assessment Type and Reason for Visit: Reassess Nutrition Recommendations/Plan: 1. Pt at risk of re-feeding due to extended poor intake and intolerance of po >> intractable N+V. 2. Recommend for Initial TPN: 118g protein (472 kcals), 450 dextrose kcals, 395 lipid kcals = 1317 kcals = 20 kcals/kg + 1.8g protein/kg IBW. 3. Recommend for Goal TPN: 118g protein (472 kcals), 680 dextrose kcals, 495 lipid kcals = 1647 kcals = 25 kcals/kg + 1.8g protein/kg IBW. Nutrition Assessment: Pt with PMH significant for total hysterectomy with bilateral salpingo-oophorectomy and sentinel lymph node biopsy 12-18-20; suffered thermal injury to Left ureter and initial stent placed 12-28. Pt with N+V since stent placement, admits with intractable nausea and vomiting, mother endorses 30# weight loss x 2 months. Pt agrees to TPN currently. Additional GI history below. Per pt's mom - her UBW is 230# and weighed that earlier this year. Pt is groggy, sitting up but not really speaking, staring in front of her. Pt is not tolerating any po intake, had a bite of mashed potato a few days ago but threw it up right away. 02-28-21 EGD completed-->LA Grade B esophagitis, antral erythema, evidence of erosions, no ulcerations-->check for H. Pylori. No evidence of gastric/duodenal outlet obstruction. GI recommended palliative care consult at this time for symptom management if no improvement. 02-28-21-->Attempted placement of DHT, patient did not tolerate. Refusing TPN and replacement of DHT. 03-02-21-->planed for gastric emptying study on 03-03, patient did not tolerate. Malnutrition Assessment: Malnutrition Status: Severe malnutrition Context: Acute Illness Findings of the 6 clinical characteristics of malnutrition: Energy Intake: 7 - 50% or less of estimated energy requirements for 5 or more days Weight Loss: 7 - Greater than 5% over 1 month Body Fat Loss: No significant body fat loss Muscle Mass Loss: No significant muscle mass loss Fluid Accumulation: No significant fluid accumulation [employer]visor [employer] Strength: Not Performed Estimated Daily Nutrient Needs: Energy (kcal): 25-30 kcals/kg (65.9kgs) = 0723-4615 kcals/day; Weight Used for Energy Requirements:[place] Protein (g): 1.6-1.8g protein/kg IBW (65.9kgs) = 105-119g protein/day; Weight Used for Protein Requirements: [place] Fluid (ml/day): per MD; Method Used for Fluid Requirements: 1 ml/kcal Nutrition Related Findings: +BS, abd soft, NT. MEDS: Erythromicin, Protonix, Remeron (disintegrating tablet), Dilaudid, Phenergan. Wounds: None Current Nutrition Therapies: ADULT DIET; Regular PN-Adult 3 IN 1 Central Line (Custom) Current Parenteral Nutrition Orders: Type and Formula: 3-in-1 Custom Lipids: Daily Duration: Continuous Rate/Volume: 2040 mls, 85 mls/hour Current PN Order Provides: 118g protein (472 kcals), 450 dextrose kcals, 395 lipid kcals = 1317 kcals = 20 kcals/kg + 1.8g protein/kg IBW (65.9kgs). Goal PN Orders Provides: 118g protein (472 kcals), 680 dextrose kcals, 495 lipid kcals = 1647 kcals= 25 kcals/kg + 1.8g protein/kg IBW. Anthropometric Measures: Height: 5' 9.02 (175.3 cm) Current Body Weight: 192 lb 12.8 oz (87.5 kg) (02/25/21) Admission Body Weight: 192 lb 14.4 oz (87.5 kg) (02/23/21) Usual Body Weight: 203 lb (92.1 kg) [place] Body Weight: 145 lbs; % [place] Body Weight 133 % BMI: 28.5 Adjusted Body Weight: ; No Adjustment BMI Categories: Overweight (BMI 25.0-29.9) BMP: Recent Labs 03/02/21 0609 03/03/21 0254 03/04/21 0427 NA 137 137 137 K 3.2* 4.0 4.3 CL 102 103 103 CO2 25 26 23 BUN <2* 3* 3* CREATININE 0.55 0.58 0.59 GLUCOSE 120* 110* 103* CALCIUM 9.5 9.7 9.8 MG 2.0 2.1 2.0 PHOS 4.6* 3.9 4.3 BG - WNL. K+ - WNL. Mg - WNL. Phos - WNL. HEPATIC: Recent Labs 03/02/21 0609 03/03/21 0254 03/04/21 0427 AST 18 19 19 ALT 9 9 11 BILITOT 0.8 0.8 0.9 ALKPHOS 47 49 54 Nutrition Diagnosis: Altered GI function related to catabolic illness (etiology of N+V being explored.) as evidenced by vomiting, nausea, nutrition support - parenteral nutrition Severe malnutrition, In context of acute illness or injury related to altered GI function as evidenced by nausea, vomiting, poor intake prior to admission, weight loss greater than or equal to 5% in 1 month Nutrition Interventions: Food and/or Nutrient Delivery: Continue Current Diet, Start Parenteral Nutrition Nutrition Education/Counseling: No recommendation at this time Coordination of Nutrition Care: Continue to monitor while inpatient Goals: Pt receives estimated energy/protein requirements via TPN. Nutrition Monitoring and Evaluation: Behavioral-Environmental Outcomes: None Identified Food/Nutrient Intake Outcomes: Food and Nutrient Intake, Parenteral Nutrition Intake/Tolerance, Diet Advancement/Tolerance Physical Signs/Symptoms Outcomes: Biochemical Data, Diarrhea, GI Status, Nausea or Vomiting, Fluid Status or Edema, Skin, Weight, Hemodynamic Status, Meal Time Behavior, Nutrition Focused Physical Findings Discharge Planning: Too soon to determine Contact: Pager #[phone] * Hiral Kennedy, - 03/04/2021 7:46 AM EDT Images from the original note were not included. Med Team Progress Note Addis Torres : 2000(21 y.o.) Date: March 04, 2021 Med Team: Mando Attending: Dr. Long Chief Complaint: N/V Subjective: - No acute events overnight. - This morning patient laying comfortably in bed with eyes closed. Reports feeling crummy. Continues to endorse nausea and abdominal pain though feels it is better controlled on current regimen. Had discussed placement of PICC like for nutrition with Dr. Long this morning, patient confirms she can do it as long as mom can be there. Let patient know we cannot guarantee this. No further questions, complaints or concerns at this time. Review of Systems Constitutional: Negative for chills, diaphoresis, fatigue and fever. HENT: Negative for rhinorrhea, sore throat and trouble swallowing. Eyes: Negative for visual disturbance. Respiratory: Negative for cough, chest tightness, shortness of breath and wheezing. Cardiovascular: Negative for chest pain and palpitations. Gastrointestinal: Positive for abdominal pain, nausea and vomiting. Negative for constipation and diarrhea. Endocrine: Negative for polyuria. Genitourinary: Negative for dysuria and hematuria. Musculoskeletal: Negative for arthralgias and myalgias. Skin: Negative for color change and pallor. Neurological: Negative for dizziness, weakness, light-headedness, numbness and headaches. Hematological: Negative for adenopathy. Psychiatric/Behavioral: Negative for agitation, behavioral problems, confusion and decreased concentration. Scheduled Meds: lidocaine 1 % injection 5 mL Intradermal Once sodium chloride flush 10 mL Intravenous 2 times per day sodium chloride flush 10 mL Intravenous 2 times per day heparin flush 250 Units Intravenous 2 times per day sennosides-docusate sodium 2 tablet Oral BID bisacodyl 10 mg Rectal Daily haloperidol lactate 0.5 mg Intravenous 3 times per day mirtazapine 15 mg Oral Nightly erythromycin 250 mg Intravenous Q8H metoclopramide 10 mg Intravenous Q6H sodium chloride flush 5-40 mL Intravenous 2 times per day polyethylene glycol 17 g Oral Daily trospium 20 mg Oral BID AC sodium chloride flush 5-40 mL Intravenous 2 times per day pantoprazole 40 mg Intravenous Daily And sodium chloride (PF) 10 mL Intravenous Daily tamsulosin 0.4 mg Oral Daily Continuous Infusions: PN-Adult 3 IN 1 Central Line (Custom) dextrose 5% and 0.45% NaCl with KCl 40 mEq 150 mL/hr at 03/03/21 2234 sodium chloride sodium chloride PRN meds used in last 24hrs: dilaudid Objective: BP (!) 141/96 Pulse 113 Temp 98.6 F (37 C) (Temporal) Resp 18 Ht 5' 9.02 (1.753 m) Wt 192 lb 12.8 oz (87.5 kg) LMP 11/09/2020 (Approximate) SpO2 99% BMI 28.46 kg/m Physical Exam Vitals reviewed. Constitutional: General: She is not in acute distress. Appearance: She is ill-appearing. HENT: Head: Normocephalic and atraumatic. Right Ear: External ear normal. Left Ear: External ear normal. Nose: Nose normal. Mouth/Throat: Mouth: Mucous membranes are moist. Eyes: General: No scleral icterus. Pupils: Pupils are equal, round, and reactive to light. Cardiovascular: Rate and Rhythm: Normal rate and regular rhythm. Pulses: Normal pulses. Heart sounds: Normal heart sounds. No murmur heard. Pulmonary: Effort: Pulmonary effort is normal. No respiratory distress. Breath sounds: Normal breath sounds. Abdominal: General: Abdomen is flat. Bowel sounds are normal. There is no distension. Palpations: Abdomen is soft. Tenderness: There is no abdominal tenderness. Comments: Small post op lesions present Musculoskeletal: General: No swelling or tenderness. Normal range of motion. Cervical back: Normal range of motion and neck supple. No rigidity. Skin: General: Skin is warm and dry. Coloration: Skin is not jaundiced. Neurological: General: No focal deficit present. Mental Status: She is alert and oriented to person, place, and time. Mental status is at baseline. Cranial Nerves: No cranial nerve deficit. Sensory: No sensory deficit. Motor: Weakness present. Psychiatric: Mood and Affect: Mood normal. Behavior: Behavior normal. Thought Content: Thought content normal. [facility] within last 24 hours Lab Results Component Value Date/Time WBC 7.9 03/04/2021 04:27 AM Hemoglobin 12.0 03/04/2021 04:27 AM Hematocrit 36.1 03/04/2021 04:27 AM Platelets 272 03/04/2021 04:27 AM MCV 80.2 03/04/2021 04:27 AM Lab Results Component Value Date/Time Sodium 137 03/04/2021 04:27 AM Potassium 4.3 03/04/2021 04:27 AM Chloride 103 03/04/2021 04:27 AM CO2 23 03/04/2021 04:27 AM BUN 3 (L) 03/04/2021 04:27 AM CREATININE 0.59 03/04/2021 04:27 AM Glucose 103 (H) 03/04/2021 04:27 AM Calcium 9.8 03/04/2021 04:27 AM Magnesium 2.0 03/04/2021 04:27 AM Phosphorus 4.3 03/04/2021 04:27 AM Lab Results Component Value Date/Time AST 19 03/04/2021 04:27 AM ALT 11 03/04/2021 04:27 AM Total Protein 8.4 (H) 03/04/2021 04:27 AM Albumin,Serum 4.5 03/04/2021 04:27 AM Total Bilirubin 0.9 03/04/2021 04:27 AM Alkaline Phosphatase 54 03/04/2021 04:27 AM Assessment and Plan: Intractable nausea and vomiting Malnutrition 2/2 above - EGD remarkable for LA type B esophagitis, erosions of antrum seen, biopsy of antrum obtained negative - initially thought 2/2 to esophagitis, but it seems like patient is afraid to eat/drink at this time. Concerns for underlying gastroparesis vs eating disorder. Psych consulted, not concerned for eating disorder. - Last intake PO was over a week ago. Attempted placement of post pyloric dobhoff couple of days ago but did not tolerate well. 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 - General surgery consulted on advice regarding TPN vs PEG placement - patient unable to complete GES this morning. Per tech, ate three bites of sandwich and stated I can't eat anymore. No vomiting. 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 Kinsey 03/13/2021 Hx of endometrial adenocarcinoma hysterectomy with bilateral salpingo- oophorectomy and sentinel lymph node sample - Total hysterectomy with salpingectomy 12/18/2020 with thermal injury to L ureter and initial stentplaced 12/28 - Stable - Goals of Care: FULL CODE - DVT Prophylaxis: SCDs - GI Prophylaxis: Protonix daily - Diet: NPO and Clear Liquids as tolerated Associated attestation - Dvaid Long MD - 03/04/2021 4:25 PM EDT I have discussed the care of Addis Torres with the medical student and/or resident. I have personally taken a history, examined the patient, and performed the associated medical decision making activities. I have reviewed & verified the attested documentation. Unless otherwise noted below, this documentation reflects the history, physical exam, and medical decision making that I performed myself. Please see note for my personal highlights or additions in Green. Patient seen and examined by myself at 0822 on 03/04/21 Farah Changes to Care Plan: - discussed case at length Dr. Clarke regarding case and options going forward. Plan to consult both her team as well as Dr. Patterson's team to determine TPN vs PEG. - spoke with assistant professor of radiology about this mornings gastric emptying study - tech stated that the patient took 3 bites of the sandwich then requested to go back to her room as she couldn't eat any morepatient did not have any emesis and did not request to go to the restroom. Radiology staff then took patient back to her room as transport was not available. - once starts TPN, will need BID BMPs with mag/phos. High risk for refeeding syndrome. If electrolytes difficult to manage, will need telemetry. I truly appreciate all the care, mgnt, & recommendations given by consultants and care team. Pager: [phone] I spent over 51% total time of 63 minutes counseling (or coordinating care). Discussed current planof care with patient. Coordinated care with resident team. Also discussed case at length with TPN team and surgical team regarding options going forward nutrition weber. * Parish Sanchez, DO - 03/03/2021 8:21 AM EDT Images from the original note were not included. Med Team Progress Note Addis Torres : 2000(21 y.o.) Date: March 03, 2021 Med Team: Mando Attending: Dr. Long Chief Complaint: N/V Subjective: - Overnight, patient was having continued nausea per her and had two episodes of emesis. She described them as brownnish liquid. This morning, patient wasn't able to get the gastric emptying studying done. Patient states that she went down to the [facility] and was told what this test entails. She was feeling sick and didn't think she would be able to keep the food down in order to get the test done. Had a long conversation with the patient regarding the her ongoing worried about eating food. Patient states that everytime she eats, she gets nauseous and cant keep the food down. Medications her helping her with nausea somewhat but not with the keeping the food down when she eats. Denies any significant abdominal pain. States that it just feels like hunger pain. Last bowel movement was 3 daysago. Review of Systems Constitutional: Negative for chills, diaphoresis, fatigue and fever. HENT: Negative for rhinorrhea, sore throat and trouble swallowing. Eyes: Negative for visual disturbance. Respiratory: Negative for cough, chest tightness, shortness of breath and wheezing. Cardiovascular: Negative for chest pain and palpitations. Gastrointestinal: Positive for abdominal pain, nausea and vomiting. Negative for constipation and diarrhea. Endocrine: Negative for polyuria. Genitourinary: Negative for dysuria and hematuria. Musculoskeletal: Negative for arthralgias and myalgias. Skin: Negative for color change and pallor. Neurological: Negative for dizziness, weakness, light-headedness, numbness and headaches. Hematological: Negative for adenopathy. Psychiatric/Behavioral: Negative for agitation, behavioral problems, confusion and decreased concentration. Scheduled Meds: metoclopramide 10 mg Intravenous Q6H ondansetron 4 mg Oral 3 times per day Or ondansetron 4 mg Intravenous 3 times per day sodium chloride flush 5-40 mL Intravenous 2 times per day polyethylene glycol 17 g Oral Daily sennosides-docusate sodium 2 tablet Oral Daily trospium 20 mg Oral BID AC sodium chloride flush 5-40 mL Intravenous 2 times per day pantoprazole 40 mg Intravenous Daily And sodium chloride (PF) 10 mL Intravenous Daily mirtazapine 15 mg Oral Nightly tamsulosin 0.4 mg Oral Daily Continuous Infusions: dextrose 5% and 0.45% NaCl with KCl 40 mEq 150 mL/hr at 03/03/21 0249 sodium chloride sodium chloride PRN meds used in last 24hrs: chris schreiber Objective: BP (!) 154/105 Pulse 102 Temp 98.6 F (37 C) (Temporal) Resp 16 Ht 5' 9.02 (1.753 m) Wt 194 lb (88 kg) LMP 11/09/2020 (Approximate) SpO2 97% BMI 28.64 kg/m Physical Exam Vitals reviewed. Constitutional: General: She is not in acute distress. Appearance: She is ill-appearing. HENT: Head: Normocephalic and atraumatic. Right Ear: External ear normal. Left Ear: External ear normal. Nose: Nose normal. Mouth/Throat: Mouth: Mucous membranes are moist. Eyes: General: No scleral icterus. Pupils: Pupils are equal, round, and reactive to light. Cardiovascular: Rate and Rhythm: Normal rate and regular rhythm. Pulses: Normal pulses. Heart sounds: Normal heart sounds. No murmur heard. Pulmonary: Effort: Pulmonary effort is normal. No respiratory distress. Breath sounds: Normal breath sounds. Abdominal: General: Abdomen is flat. Bowel sounds are normal. There is no distension. Palpations: Abdomen is soft. Tenderness: There is no abdominal tenderness. Comments: Small post op lesions present Musculoskeletal: General: No swelling or tenderness. Normal range of motion. Cervical back: Normal range of motion and neck supple. No rigidity. Skin: General: Skin is warm and dry. Coloration: Skin is not jaundiced. Neurological: General: No focal deficit present. Mental Status: She is alert and oriented to person, place, and time. Mental status is at baseline. Cranial Nerves: No cranial nerve deficit. Sensory: No sensory deficit. Motor: Weakness present. Psychiatric: Mood and Affect: Mood normal. Behavior: Behavior normal. Thought Content: Thought content normal. [facility] within last 24 hours Lab Results Component Value Date/Time WBC 8.1 03/03/2021 02:54 AM Hemoglobin 11.9 03/03/2021 02:54 AM Hematocrit 35.8 03/03/2021 02:54 AM Platelets 290 03/03/2021 02:54 AM MCV 79.4 03/03/2021 02:54 AM Lab Results Component Value Date/Time Sodium 137 03/03/2021 02:54 AM Potassium 4.0 03/03/2021 02:54 AM Chloride 103 03/03/2021 02:54 AM CO2 26 03/03/2021 02:54 AM BUN 3 (L) 03/03/2021 02:54 AM CREATININE 0.58 03/03/2021 02:54 AM Glucose 110 (H) 03/03/2021 02:54 AM Calcium 9.7 03/03/2021 02:54 AM Magnesium 2.1 03/03/2021 02:54 AM Phosphorus 3.9 03/03/2021 02:54 AM Lab Results Component Value Date/Time AST 19 03/03/2021 02:54 AM ALT 9 03/03/2021 02:54 AM Total Protein 7.9 03/03/2021 02:54 AM Albumin,Serum 4.2 03/03/2021 02:54 AM Total Bilirubin 0.8 03/03/2021 02:54 AM Alkaline Phosphatase 49 03/03/2021 02:54 AM Assessment and Plan: Intractable nausea and vomiting Malnutrition 2/2 above - EGD remarkable for LA type B esophagitis, erosions of antrum seen, biopsy of antrum obtained negative - initially thought 2/2 to esophagitis, but it seems like patient is afraid to eat/drink at this time. Concerns for underlying gastroparesis vs eating disorder. - Last intake PO was ~ a week ago. Attempted placement of post pyloric dobhoff couple of days ago but did not tolerate well. Not interested in TPN or repeat attempt at feeding tube at time of interview this morning. Will ask the patient again this afternoon - this morning, patient was willing to get PEG tube placement for nutrition. Advised patient that it is not a better fdc solution until we have ruled everything out. - patient wasn't able to get gastric emptying done due to persistent nausea and worries about emesis after food - palliative care following - will hold off checking KUB as patient had a liquid bowel movement this morning and does have positive bowel sounds in all four quadrants, admits to flatus - check CT A/P W/WO contrast - check MRI brain W/WO contrast in the setting of persistent nausea, vomiting with underlying hx ofendometrial cancer s/p hysterectomy - will start erythromycin 250mg q8hrs - haldol 0.5mg q8hrs scheduled - continue reglan 10mg q6hrs - psychology consulted, appreciate recs Hypokalemia - resolved - expected 2/2 to IVF with dextrose administration yesterday - patient has not been able to tolerate PO - was started on KCl in the D5&0.45NaCl infusion - will continue to monitor Abdominal pain, improving - Etiology repeating retching along with post-operative from L stent placement 02/13 - Continue 1g Tylenol Q6H; continue Dilaudid to 0.25 mg Q4H PRN Microcytic anemia with h/o iron deficiency, resolved - Hgb improved this am 11.8 (10.8) - iron studies wnl - will ctm daily CBC 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 Kinsey 03/13/2021 Hx of endometrial adenocarcinoma hysterectomy with bilateral salpingo- oophorectomy and sentinel lymph node sample - Total hysterectomy with salpingectomy 12/18/2020 with thermal injury to L ureter and initial stentplaced 12/28 - Stable - Goals of Care: FULL CODE - DVT Prophylaxis: SCDs - GI Prophylaxis: Protonix daily - Diet: NPO and Clear Liquids as tolerated Associated attestation - David Long MD - 03/03/2021 2:45 PM EDT I have discussed the care of Addis Torres with the medical student and/or resident. I have personally taken a history, examined the patient, and performed the associated medical decision making activities. I have reviewed & verified the attested documentation. Unless otherwise noted below, this documentation reflects the history, physical exam, and medical decision making that I performed myself. Please see note for my personal highlights or additions in Green. Patient seen and examined by myself at 0733 on 03/03/21 Farah Changes to Care Plan: - patient refusing Dobhoff for TF - patient refusing gastric emptying study this morning given nausea. We may not be able to get thisstudy until outpatient after current episode resolves. - palliative care consulted - very much appreciate. - large liquid bowel movement today - unlikely constipated. - We have plenty of room with the QTc despite current meds. add IV erythromycin for possible gastroparesis. - awaiting page back from palliative - want to form a plan for nutrition. Pager: [phone] Addendum 2:33 PM EDT 03/03/21 Discussed case with palliative care. Very difficult case. - after discussion and recommendations, will order MRI brain to r/o mets from prior cancer. Also obtain CT C/A/P - r/o mets but also small bowel obstruction amongst other eitologies. - patient requesting a PEG Tube, but I do not feel like that will work given emesis of any food in her stomach as well as any food in her duodenum (as evidence by bile in her stomach during EGD). Patient has refused TPN the last three days when discussed. Will have resident team try again today - this is our best option for nutrition at this time. I truly appreciate all the care, mgnt, & recommendations given by consultants and care team. Pager: [phone] I spent over 51% total time of 36 minutes counseling (or coordinating care). Discussed current planof care with patient. Coordinated care with resident team. Also discussed case with RN and palliative care team. * Parish Sanchez, DO - 03/02/2021 8:18 AM EDT Images from the original note were not included. Med Team Progress Note Addis Rivers Brian : 2000(21 y.o.) Date: March 02, 2021 Med Team: Mando Attending: Dr. Long Chief Complaint: nausea, vomiting Subjective: - Overnight, patient continued to complaining of nausea. This morning when seen, patient was initially sleeping in bed. Was able to open eyes and have a conversation. Patient states that yesterday, she was able to tolerate chicken soup/broth and keep it down for a little bit until she threw it right back up. Since then, patient has not tried anything to eat or drink. Tried to understand if she is nauseous all of the time. Patient states that she is afraid to eat anything at this time because she knows she will get nauseous if she eats anything. Nausea medications helping to control somewhat. Advised and explained to the patient that we are worried about her not eating and getting any nutrition in her as she hasn't eaten anything in over a week or so. Seems like patient is fearful and/or afraid to eat/drink at this time. Explained to her that she can take antiemetics medications before she tries to eat anything but she states that she has already tried that and it didn't work. Patient states that she is ready to get a PEG tube placement for nutrition if needed. 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 Explained to her the importance of having full workup done first. Patient is willing to get gastric emptying studying done in order to see if she has gastroparesis that could explain this. Advised and counseled on the importance of getting this test done. Advised to get anti-emetics medications before getting the test done. Patient voiced understanding. Review of Systems Constitutional: Negative for chills, diaphoresis, fatigue and fever. HENT: Negative for rhinorrhea, sore throat and trouble swallowing. Eyes: Negative for visual disturbance. Respiratory: Negative for cough, chest tightness, shortness of breath and wheezing. Cardiovascular: Negative for chest pain and palpitations. Gastrointestinal: Positive for abdominal pain, nausea and vomiting. Negative for constipation and diarrhea. Endocrine: Negative for polyuria. Genitourinary: Negative for dysuria and hematuria. Musculoskeletal: Negative for arthralgias and myalgias. Skin: Negative for color change and pallor. Neurological: Negative for dizziness, weakness, light-headedness, numbness and headaches. Hematological: Negative for adenopathy. Psychiatric/Behavioral: Negative for agitation, behavioral problems, confusion and decreased concentration. Scheduled Meds: metoclopramide 10 mg Intravenous Q6H ondansetron 4 mg Oral 3 times per day Or ondansetron 4 mg Intravenous 3 times per day sodium chloride flush 5-40 mL Intravenous 2 times per day polyethylene glycol 17 g Oral Daily sennosides-docusate sodium 2 tablet Oral Daily trospium 20 mg Oral BID AC sodium chloride flush 5-40 mL Intravenous 2 times per day pantoprazole 40 mg Intravenous Daily And sodium chloride (PF) 10 mL Intravenous Daily mirtazapine 15 mg Oral Nightly tamsulosin 0.4 mg Oral Daily Continuous Infusions: IV infusion builder sodium chloride sodium chloride PRN meds used in last 24hrs: compazine, dilaudid Objective: BP (!) 151/109 Pulse 95 Temp 99 F (37.2 C) (Temporal) Resp 18 Ht 5' 9.02 (1.753 m) Wt 194 lb (88 kg) LMP 11/09/2020 (Approximate) SpO2 98% BMI 28.64 kg/m Physical Exam Vitals reviewed. Constitutional: General: She is not in acute distress. Appearance: She is ill-appearing. HENT: Head: Normocephalic and atraumatic. Right Ear: External ear normal. Left Ear: External ear normal. Nose: Nose normal. Mouth/Throat: Mouth: Mucous membranes are moist. Eyes: General: No scleral icterus. Pupils: Pupils are equal, round, and reactive to light. Cardiovascular: Rate and Rhythm: Normal rate and regular rhythm. Pulses: Normal pulses. Heart sounds: Normal heart sounds. No murmur heard. Pulmonary: Effort: Pulmonary effort is normal. No respiratory distress. Breath sounds: Normal breath sounds. Abdominal: General: Abdomen is flat. Bowel sounds are normal. There is no distension. Palpations: Abdomen is soft. There is no mass. Tenderness: There is abdominal tenderness. Comments: Small post op lesions present Musculoskeletal: General: No swelling or tenderness. Normal range of motion. Cervical back: Normal range of motion. No rigidity. Skin: General: Skin is warm and dry. Coloration: Skin is not jaundiced. Neurological: General: No focal deficit present. Mental Status: She is alert. Mental status is at baseline. Cranial Nerves: No cranial nerve deficit. Sensory: No sensory deficit. Motor: Weakness present. Psychiatric: Comments: Flat affect [facility] within last 24 hours Lab Results Component Value Date/Time WBC 7.1 03/02/2021 06:09 AM Hemoglobin 11.9 03/02/2021 06:09 AM Hematocrit 35.8 03/02/2021 06:09 AM Platelets 312 03/02/2021 06:09 AM MCV 79.2 03/02/2021 06:09 AM Lab Results Component Value Date/Time Sodium 137 03/02/2021 06:09 AM Potassium 3.2 (L) 03/02/2021 06:09 AM Chloride 102 03/02/2021 06:09 AM CO2 25 03/02/2021 06:09 AM BUN <2 (L) 03/02/2021 06:09 AM CREATININE 0.55 03/02/2021 06:09 AM Glucose 120 (H) 03/02/2021 06:09 AM Calcium 9.5 03/02/2021 06:09 AM Magnesium 2.0 03/02/2021 06:09 AM Phosphorus 4.6 (H) 03/02/2021 06:09 AM Lab Results Component Value Date/Time AST 18 03/02/2021 06:09 AM ALT 9 03/02/2021 06:09 AM Total Protein 7.8 03/02/2021 06:09 AM Albumin,Serum 4.2 03/02/2021 06:09 AM Total Bilirubin 0.8 03/02/2021 06:09 AM Alkaline Phosphatase 47 03/02/2021 06:09 AM Assessment and Plan: Intractable nausea and vomiting Malnutrition 2/2 above - EGD remarkable for LA type B esophagitis, erosions of antrum seen, biopsy of antrum obtained negative - initially thought 2/2 to esophagitis, but it seems like patient is afraid to eat/drink at this time. Concerns for underlying eating disorder. - Last intake PO was ~ a week ago. Attempted placement of post pyloric dobhoff couple of days ago but did not tolerate well. Not interested in TPN or repeat attempt at feeding tube at time of interview this morning. - this morning, patient was willing to get PEG tube placement for nutrition. Advised patient that it is not a better fdc solution until we have ruled everything out. - check gastric emptying studying to rule out gastroparesis - advised patient on the importance of getting this study done and doing it as much as tolerable - will schedule reglan 10mg q6hrs, continue PRN antiemetics - will get palliative care consult - psychology consult as well Hypokalemia - expected 2/2 to IVF with dextrose administration yesterday - patient has not been able to tolerate PO - will start KCl in the D5&0.45NaCl infusion Abdominal pain, improving - Etiology repeating retching along with post-operative from L stent placement 02/13 - Continue 1g Tylenol Q6H; continue Dilaudid to 0.25 mg Q4H PRN Microcytic anemia with h/o iron deficiency, resolved - Hgb improved this am 11.8 (10.8) - iron studies wnl - will ctm daily CBC 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 Kinsey 03/13/2021 Hx of endometrial adenocarcinoma hysterectomy with bilateral salpingo- oophorectomy and sentinel lymph node sample - Total hysterectomy with salpingectomy 12/18/2020 with thermal injury to L ureter and initial stentplaced 12/28 - Stable - Goals of Care: FULL CODE - DVT Prophylaxis: SCDs - GI Prophylaxis: Protonix daily - Diet: NPO and Clear Liquids Associated attestation - David Long MD - 03/02/2021 3:00 PM EDT I have discussed the care of Addis Torres with the medical student and/or resident. I have personally taken a history, examined the patient, and performed the associated medical decision making activities. I have reviewed & verified the attested documentation. Unless otherwise noted below, this documentation reflects the history, physical exam, and medical decision making that I performed myself. Please see note for my personal highlights or additions in Green. Patient seen and examined by myself at 0905 on 03/02/21 Farah Changes to Care Plan: - not doing well from severe nausea and intolerance to PO - refusing TPN as she doesn't want PICC or IJ. - patient requesting PEG Tube - obtain gastric emptying study. - add IV reglan - consult palliative care to help with refractory nausea - consult psychology to help with mood disorder, flat affect, and repeat concern among healthcare team for underlying psych disorder vs eating disorder? - add K in IVF Pager: [phone] I spent over 51% total time of 31 minutes counseling (or coordinating care). Discussed current planof care with patient. Coordinated care with resident team. Also discussed case with nurse at lengthand prior MEDICAL LAB SPECIALIST team that was taking care of patient. * Hiral Kennedy, DO - 03/01/2021 11:39 AM EDT Images from the original note were not included. Med Team Progress Note Addis Torres : 2000(21 y.o.) Date: March 01, 2021 Med Team: D Attending: Dr. David Long Chief Complaint: N/V Subjective: - No acute events overnight. Tried to eat a chip. Vomited the chip. - Currently, patient sleeping comfortably in bed. Awakes easily for exam. Vomited once overnight. Continues to endorse nausea. Denies abdominal pain. Did not tolerate placement of tube feed well yesterday. Discussed if she would like to try again or maybe consider TPN. Patient would not like either. Review of Systems Constitutional: Positive for appetite change and fatigue. Negative for chills and fever. HENT: Negative for congestion and sore throat. Eyes: Negative for discharge. Respiratory: Negative for cough, shortness of breath and wheezing. Cardiovascular: Negative for chest pain, palpitations and leg swelling. Gastrointestinal: Positive for nausea and vomiting (x1 overnight). Negative for abdominal distention, abdominal pain, constipation and diarrhea. Genitourinary: Negative for difficulty urinating, dysuria and hematuria. Musculoskeletal: Negative for arthralgias and myalgias. Skin: Negative for color change and rash. Neurological: Negative for dizziness, weakness, light-headedness and headaches. Psychiatric/Behavioral: Negative for agitation, behavioral problems and sleep disturbance. Scheduled Meds: potassium phosphate IVPB 30 mmol Intravenous Once ondansetron 4 mg Oral 3 times per day Or ondansetron 4 mg Intravenous 3 times per day sodium chloride flush 5-40 mL Intravenous 2 times per day polyethylene glycol 17 g Oral Daily sennosides-docusate sodium 2 tablet Oral Daily trospium 20 mg Oral BID AC sodium chloride flush 5-40 mL Intravenous 2 times per day pantoprazole 40 mg Intravenous Daily And sodium chloride (PF) 10 mL Intravenous Daily mirtazapine 15 mg Oral Nightly tamsulosin 0.4 mg Oral Daily Continuous Infusions: sodium chloride dextrose 5 % and 0.45 % NaCl 150 mL/hr at 03/01/21 0049 sodium chloride Objective: BP (!) 146/84 Pulse 80 Temp 99.1 F (37.3 C) (Temporal) Resp 16 Ht 5' 9.02 (1.753 m) Wt 194 lb (88 kg) LMP 11/09/2020 (Approximate) SpO2 96% BMI 28.64 kg/m Physical Exam Constitutional: General: She is not in acute distress. Appearance: Normal appearance. She is normal weight. She is ill-appearing. Comments: HENT: Head: Normocephalic and atraumatic. Nose: Nose normal. No congestion. Mouth/Throat: Mouth: Mucous membranes are moist. Pharynx: No oropharyngeal exudate. Eyes: Conjunctiva/sclera: Conjunctivae normal. Pupils: Pupils are equal, round, and reactive to light. Cardiovascular: Rate and Rhythm: Normal rate and regular rhythm. Pulses: Normal pulses. Heart sounds: No murmur heard. No friction rub. Pulmonary: Effort: Pulmonary effort is normal. No respiratory distress. Breath sounds: Normal breath sounds. No wheezing. Abdominal: General: Abdomen is flat. Bowel sounds are normal. There is no distension. Palpations: There is no mass. Tenderness: There is no abdominal tenderness. There is no right CVA tenderness or left CVA tenderness. Musculoskeletal: General: No swelling or tenderness. Normal range of motion. Cervical back: Normal range of motion. No rigidity. Right lower leg: No edema. Left lower leg: No edema. Skin: General: Skin is warm and dry. Findings: Lesion (small clean post-op lesions) present. No rash. Neurological: General: No focal deficit present. Mental Status: She is oriented to person, place, and time. Mental status is at baseline. Cranial Nerves: No cranial nerve deficit. Sensory: No sensory deficit. Psychiatric: Mood and Affect: Mood normal. Behavior: Behavior normal. [facility] within last 24 hours Lab Results Component Value Date/Time WBC 6.3 03/01/2021 04:50 AM Hemoglobin 11.8 03/01/2021 04:50 AM Hematocrit 35.2 03/01/2021 04:50 AM Platelets 342 03/01/2021 04:50 AM MCV 78.3 (L) 03/01/2021 04:50 AM Lab Results Component Value Date/Time Sodium 134 (L) 03/01/2021 05:31 AM Potassium 3.3 (L) 03/01/2021 05:31 AM Chloride 98 03/01/2021 05:31 AM CO2 26 03/01/2021 05:31 AM BUN <2 (L) 03/01/2021 05:31 AM CREATININE 0.55 03/01/2021 05:31 AM Glucose 120 (H) 03/01/2021 05:31 AM Calcium 9.5 03/01/2021 05:31 AM Magnesium 1.9 03/01/2021 05:31 AM Phosphorus 4.1 03/01/2021 05:31 AM Lab Results Component Value Date/Time AST 19 03/01/2021 05:31 AM ALT 11 03/01/2021 05:31 AM Total Protein 8.3 (H) 03/01/2021 05:31 AM Albumin,Serum 4.6 03/01/2021 05:31 AM Total Bilirubin 0.8 03/01/2021 05:31 AM Alkaline Phosphatase 60 03/01/2021 05:31 AM Assessment and Plan: Intractable nausea and vomiting likely 2/2 esophagitis Malnutrition 2/2 above - Continue scheduled zofran, cont compazine - EGD remarkable for LA type B esophagitis, erosions of antrum seen, biopsy of antrum obtained negative - will defer CT head at this time given EGD findings - Last intake PO was 6 days ago. Attempted placement of post pyloric dobhoff yesterday but did not tolerate well. Not interested in TPN or repeat attempt at feeding tube at time of interview this morning. Hypokalemia - expected 2/2 to IVF with dextrose administration yesterday - replenished IV as patient not able to tolerate PO Abdominal pain, improving - Etiology repeating retching along with post-operative from L stent placement 02/13 - Continue 1g Tylenol Q6H; will decrease Dilaudid to 0.25 mg Q4H PRN Microcytic anemia with h/o iron deficiency, resolved - Hgb improved this am 11.8 (10.8) - iron studies wnl - will ctm daily CBC 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 Kinsey 03/13/2021 Hx of endometrial adenocarcinoma hysterectomy with bilateral salpingo- oophorectomy and sentinel lymph node sample - Total hysterectomy with salpingectomy 12/18/2020 with thermal injury to L ureter and initial stentplaced 12/28 - Stable - Goals of Care: FULL CODE - DVT Prophylaxis: SCDs - GI Prophylaxis: Protonix daily - Diet: NPO and Clear Liquids Associated attestation - David Long MD - 03/01/2021 5:13 PM EDT I have discussed the care of Addis Torres with the medical student and/or resident. I have personally taken a history, examined the patient, and performed the associated medical decision making activities. I have reviewed & verified the attested documentation. Unless otherwise noted below, this documentation reflects the history, physical exam, and medical decision making that I performed myself. Please see note for my personal highlights or additions in Green. Patient seen and examined by myself at 0957 on 03/01/21 Patient admitted to me that she had NO nausea today at rest but had some previously when she tried a chip in her stomach. She admitted to the residents that she did not have any pain today. Farah Changes to Care Plan: - trial of clears then ADAT. - if fails diet then will need to re-approach TPN discussion. - replace K Pager: [phone] I spent over 51% total time of 36 minutes counseling (or coordinating care). Discussed current planof care with patient. Coordinated care with resident team. Also discussed how to advance diet and contingency planning if unable to tolerate diet in the future. * Shonna Herrera, RN - 02/28/2021 3:[address] Brent Neely RN heidi Gonzalez was here to insert Dobhoff at bedside. Gastric content returned, patient then stated that she couldn't breathe and started vomiting. Patient asked for Dobhoff to be removed. Then stated she felt better after it was removed. Patient refused for Dobhoff to be reinserted. No new orders received. * Joanne Fuentes RD, LD - 02/28/2021 2:08 PM EDT Comprehensive Nutrition Assessment Type and Reason for Visit: Reassess Nutrition Recommendations/Plan: 1. Patient NPO this morning for EGD, diet has since advanced to Clear liquids. Patient continues tonot tolerate oral diet or liquids at this time. 2. As patient has been without adequate nutrition for > 5 days, strongly recommend initiation ofEN within the next 48 hours at a tropic rate: Recommend: Vital 1.5 @ 20 mL/hr at continuous rate Regimen to provide: 720 kcal, 32 g protein, 367 mL free H2O daily (13 kcal, and 0.6 g protein per kg IBW<54.4 kg>) Recommend to slowly advance EN, as patient tolerates and with close monitoring of electrolytes to: Vital 1.5@ 40 mL/hr Regimen at goal to provide: 1400 kcal, 64 g protein, 733 mL free H2O daily. (26 kcal, and 1.2 g protein kg IBW <54.4 kg>) 3. If unable to tolerate or initiate EN within 48 hours, suggest initiation of TPN: Initial TPN to begin with 1088 total calories (20 kcal/kg IBW<54.4 kg>) 370 dextrose calories, 392 calories from protein (98 g protein <1.8 g/kg IBW<54.4kg>), 326lipid calories Goal TPN: 1360 total calories (25 kcal/kg IBW <5404 kg>): 560 dextrose calories, 392 calories from protein (98 g protein <1.8 g/kg IBW<54.4kg>), [address] to continue to monitor weekly- changes in fluid accumulation, weight, skin integrity, lab values, intakes and changes in clinical status and/or goals of care Nutrition Assessment: 21 year old female with PMHx: PCOS, endometrial cancer- s/p hysterectomy and salpingectomy with Dr Escobedo on 12/18/20; and s/p left ureteral stent placement on 02/12/21. Since admission, patient with minimal PO intake, she consumed 1 peanut butter and jelly sandwich on 02/24, which she vomited up hours later. NPO for EGD this morning (02/28/21): Evidence of LA grade B esophagitis. Significant amount of bile was seen in the stomach, Antral erythema with evidence of erosions butno ulcerations; gastric biopsies obtained to check for H. Pylori. Normal D1 & D2 with normal appearing villi. No evidence of gastric / duodenal outlet obstruction . Patient visited post-EGD lyingin bed, noted open bag of Lays chips at bedside- patient states she ate a few bites of potato chipsand a popsicle- now feeling nauseous again. Obtained bed-scale weight, 192.8#. Spoke with MD outside of room regarding likely need for alternative nutrition, as patient has been without adequate nutrition for > 5 days. He agreed to discuss options with patient. Malnutrition Assessment: Malnutrition Status: At risk for malnutrition (Comment) (due to poor oral intake for > 1 week) Context: Acute Illness Findings of the 6 clinical characteristics of malnutrition: Energy Intake: 1 - 75% or less of estimated energy requirements for 7 or more days Weight Loss: No significant weight loss (-4.2% weight loss over 1 month) Body Fat Loss: No significant body fat loss Muscle Mass Loss: No significant muscle mass loss Fluid Accumulation: No significant fluid accumulation [employer]visor [employer] Strength: Not Performed Estimated Daily Nutrient Needs: Energy (kcal): 4501-2199 (25-30 kcal/kg IBW<54.4 kg>); Weight Used for Energy Requirements: [place] (54.4 kg) Protein (g): 54-65 (1.0-1.2 g protein/kg IBW<54.4 kg>); Weight Used for Protein Requirements:[place] (54.4 kg) Fluid (ml/day): 2668-0876 or per MD; Method Used for Fluid Requirements: 1 ml/kcal Nutrition Related Findings: +I/O balance: +5244. No skin breakdown and no edema noted. Sachin score= 19. Labs reviewed: Low Na+ (134), K+ (3.3), BUN (3), Creatinine (0.50). Medications reviewed: protonix and remeron Wounds: None Current Nutrition Therapies: ADULT DIET; Clear Liquid Anthropometric Measures: Height: 5' 9.02 (175.3 cm) Current Body Weight: 192 lb 12.8 oz (87.5 kg) (02/25/21) Admission Body Weight: 192 lb 14.4 oz (87.5 kg) (02/23/21) Usual Body Weight: 197 lb 12 oz (89.7 kg) (post-op visit weight on 01/08/21) [place] Body Weight: 145 lbs; % [place] Body Weight 133 % BMI: 28.5 Adjusted Body Weight: ; No Adjustment Adjusted BMI: BMI Categories: Overweight (BMI 25.0-29.9) Nutrition Diagnosis: Inadequate energy intake related to altered GI function as evidenced by vomiting, nausea, constipation Nutrition Interventions: Food and/or Nutrient Delivery: Start Oral Diet (If patient unable to advance and tolerate diet, consider alternative nutrition options (EN and/or PN)) Nutrition Education/Counseling: No recommendation at this time Coordination of Nutrition Care: Continue to monitor while inpatient Goals: patient to have adequate nutrition within the next 48 hours Nutrition Monitoring and Evaluation: Behavioral-Environmental Outcomes: None Identified Food/Nutrient Intake Outcomes: Diet Advancement/Tolerance, Food and Nutrient Intake Physical Signs/Symptoms Outcomes: Biochemical Data, Diarrhea, GI Status, Nausea or Vomiting, Fluid Status or Edema, Skin, Weight, Hemodynamic Status, Meal Time Behavior, Nutrition Focused Physical Findings Discharge Planning: Too soon to determine Contact: *[phone] * Hiral Kennedy DO - 02/28/2021 9:16 AM EDT Images from the original note were not included. Med Team Progress Note Addis Torres : 2000(21 y.o.) Date: February 28, 2021 Med Team: D Attending: Dr. David Long Chief Complaint: N/V Subjective: - No acute events overnight. - Currently, patient sitting up in bed, looks to be uncomfortable and fatigued. No improvement in nausea or vomiting. Continues to have 2/10 epigastric and 6/10 LLQ abdominal pain 2/2 to ureteral stent. Did notice improvement in nausea with compazine started yesterday. Additionally endorsing fatigue 2/2 to n/v through out the night. Admits last meal was five days ago 2/2 to n/v. Review of Systems Constitutional: Positive for appetite change and fatigue. Negative for chills and fever. HENT: Negative for congestion and sore throat. Eyes: Negative for discharge. Respiratory: Negative for cough, shortness of breath and wheezing. Cardiovascular: Negative for chest pain, palpitations and leg swelling. Gastrointestinal: Positive for abdominal pain, nausea and vomiting. Negative for abdominal distention, constipation and diarrhea. Genitourinary: Negative for difficulty urinating, dysuria and hematuria. Musculoskeletal: Negative for arthralgias and myalgias. Skin: Negative for color change and rash. Neurological: Negative for dizziness, weakness, light-headedness and headaches. Psychiatric/Behavioral: Positive for sleep disturbance. Negative for agitation and behavioral problems. Scheduled Meds: potassium chloride 40 mEq Oral Once acetaminophen 1,000 mg Oral 4 times per day sodium chloride flush 5-40 mL Intravenous 2 times per day polyethylene glycol 17 g Oral Daily sennosides-docusate sodium 2 tablet Oral Daily trospium 20 mg Oral BID AC sodium chloride flush 5-40 mL Intravenous 2 times per day pantoprazole 40 mg Intravenous Daily And sodium chloride (PF) 10 mL Intravenous Daily mirtazapine 15 mg Oral Nightly tamsulosin 0.4 mg Oral Daily Continuous Infusions: sodium chloride dextrose 5 % and 0.45 % NaCl 150 mL/hr at 02/28/21 0318 sodium chloride PRN meds used in last 24hrs: Zofran x4 times, ketorolac 30 mg x3, Dilaudid IV 0.5 mg almost around the clock Q4Hs, Haldol 1 mg x1 Objective: BP (!) 167/107 Pulse 94 Temp 98.3 F (36.8 C) (Temporal) Resp 16 Ht 5' 9 (1.753 m) Wt 194lb (88 kg) LMP 11/09/2020 (Approximate) SpO2 99% BMI 28.65 kg/m Physical Exam Constitutional: General: She is not in acute distress. Appearance: Normal appearance. She is normal weight. She is ill-appearing. Comments: Very uncomfortable looking HENT: Head: Normocephalic and atraumatic. Nose: Nose normal. No congestion. Mouth/Throat: Mouth: Mucous membranes are moist. Pharynx: No oropharyngeal exudate. Eyes: Conjunctiva/sclera: Conjunctivae normal. Pupils: Pupils are equal, round, and reactive to light. Cardiovascular: Rate and Rhythm: Normal rate and regular rhythm. Pulses: Normal pulses. Heart sounds: Murmur (2/6 systolic murmur) heard. No friction rub. Pulmonary: Effort: Pulmonary effort is normal. No respiratory distress. Breath sounds: Normal breath sounds. No wheezing. Abdominal: General: Abdomen is flat. Bowel sounds are normal. There is no distension. Palpations: There is no mass. Tenderness: There is no abdominal tenderness (diffusely, worsened on L quandrants). There is no right CVA tenderness or left CVA tenderness. Musculoskeletal: General: No swelling or tenderness. Normal range of motion. Cervical back: Normal range of motion. No rigidity. Right lower leg: No edema. Left lower leg: No edema. Skin: General: Skin is warm and dry. Findings: Lesion (small clean post-op lesions) present. No rash. Neurological: General: No focal deficit present. Mental Status: She is oriented to person, place, and time. Mental status is at baseline. Cranial Nerves: No cranial nerve deficit. Sensory: No sensory deficit. Psychiatric: Mood and Affect: Mood normal. Behavior: Behavior normal. [facility] within last 24 hours Lab Results Component Value Date/Time WBC 5.7 02/28/2021 03:17 AM Hemoglobin 10.8 (L) 02/28/2021 03:17 AM Hematocrit 32.6 (L) 02/28/2021 03:17 AM Platelets 331 02/28/2021 03:17 AM MCV 78.7 (L) 02/28/2021 03:17 AM Lab Results Component Value Date/Time Sodium 134 (L) 02/28/2021 03:17 AM Potassium 3.3 (L) 02/28/2021 03:17 AM Chloride 101 02/28/2021 03:17 AM CO2 25 02/28/2021 03:17 AM BUN 3 (L) 02/28/2021 03:17 AM CREATININE 0.50 (L) 02/28/2021 03:17 AM Glucose 120 (H) 02/28/2021 03:17 AM Calcium 8.9 02/28/2021 03:17 AM Magnesium 1.9 02/28/2021 03:17 AM Phosphorus 3.3 02/28/2021 03:17 AM Lab Results Component Value Date/Time AST 29 02/28/2021 03:17 AM ALT 12 02/28/2021 03:17 AM Total Protein 7.7 02/28/2021 03:17 AM Albumin,Serum 4.3 02/28/2021 03:17 AM Total Bilirubin 0.7 02/28/2021 03:17 AM Alkaline Phosphatase 51 02/28/2021 03:17 AM Assessment and Plan: Intractable nausea and vomiting likely 2/2 esophagitis Malnutrition 2/2 above - Etiology unclear, urology states this is not likely from L stent; THC neg; unlikely infectious given no leukocytosis and afebrile - Will schedule zofran, cont compazine - Multiple BMs yesterday including large BM with Gastrogaffin enema. - GI remarkable for LA type B esophagitis, erosions of antrum seen - biopsy of antrum obtained to r/o h. pylori - will defer CT head at this time given EGD suggestive of etiology - Last intake PO was 5 days ago. Discussed options of TPN vs tube feeding. Patient amenable to latter. Will reach out to GI to see if this would be appropriate. Hypokalemia - anticipated 2/2 to IVF with dextrose administration yesterday - replenished IV as patient not able to tolerate PO Abdominal pain - Etiology repeating retching along with post-operative from L stent placement 02/13 - Continue 1g Tylenol Q6H; will decrease Dilaudid to 0.25 mg Q4H PRN 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 Kinsey 03/13/2021 Hx of endometrial adenocarcinoma hysterectomy with bilateral salpingo- oophorectomy and sentinel lymph node sample - Total hysterectomy with salpingectomy 12/18/2020 with thermal injury to L ureter and initial stentplaced 12/28 - Stable Microcytic anemia with h/o iron deficiency - add iron studies on for tomorrow's labs. - may need IV replacement given cannot tolerate any PO and severe constipation upon presentation this admission. - Goals of Care: FULL CODE - DVT Prophylaxis: SCDs - GI Prophylaxis: Protonix daily - Diet: NPO and Clear Liquids Associated attestation - David Long MD - 02/28/2021 4:15 PM EDT I have discussed the care of Addis Torres with the medical student and/or resident. I have personally taken a history, examined the patient, and performed the associated medical decision making activities. I have reviewed & verified the attested documentation. Unless otherwise noted below, this documentation reflects the history, physical exam, and medical decision making that I performed myself. Please see note for my personal highlights or additions in Green. Patient seen and examined by myself at 1203 on 02/28/21 Farah Changes to Care Plan: - discussed with chief operating engineer - concern about to enternal nutrition for 5 days. They are requesting TPN. Team discussed with GI and okay for dobhoff. Patient very willing for dobhoff and welcomed the idea as she is hungry. She did not tolerate placement unfortunately and requested for it to be taken out. Patient told me she does not want TPN at this time. Will discuss again tomorrow. She may be willing to obtain a PICC. - patient has been refusing all PO meds essentially given such severe refractory nausea - EGD today with Grade B esophagitis. Need to stop NSAIDS (toradol d/c'd). - compazine worked some yesterday per patient. Schedule nereyda mistry 1st line prn. - trial of . Pager: [phone] I spent over 51% total time of 35 minutes counseling (or coordinating care). Discussed current planof care with patient. Coordinated care with resident team. Also discussed nausea control options. Also discussed case with chief operating engineer as detailed above. Discussed TPN vs TF vs oral feeding options with patient at length. * Geno Valerio RN - 02/28/2021 8:35 AM EDT Report called to staff nurse on unit * Madan Greenwood DO - 02/27/2021 9:36 AM EDT Images from the original note were not included. Med Team Progress Note Addis Torres : 2000(21 y.o.) Date: February 27, 2021 Med Team: D Attending: Dr. David Long Chief Complaint: N/V Subjective: - Overnight, called overnight AR2 for N and HTN, added Haldol/Hydralazine/labetalol PRN - Currently, patient continues to admit to persistent nausea and vomiting. She states it has not improved while being at [facility] and nothing seems to help. She further admits to chest pain which she admits etiology being vomiting. She further admits to abdominal pain which is worsening with retching and is described as sharp in nature, she states only Diluadid seems to help with this pain. She statesshe has had multiple BMs including a large BM with the enema yesterday, 02/26. She denies hx of N/V/D prior to L ureteral stent placement on 02/12. Unable to maintain any PO intake with becoming nauseous and vomiting. Denies bloody vomiting and bloody BMs. Denies ETOH use, drugs (denies weed) and smoking use. Sexually active. Review of Systems Constitutional: Positive for appetite change and chills. Negative for fatigue and fever. HENT: Negative for congestion and sore throat. Eyes: Negative for discharge. Respiratory: Negative for cough, shortness of breath and wheezing. Cardiovascular: Negative for chest pain, palpitations and leg swelling. Gastrointestinal: Negative for abdominal distention, abdominal pain, diarrhea, nausea and vomiting. Genitourinary: Negative for difficulty urinating and hematuria. Musculoskeletal: Negative for arthralgias and myalgias. Skin: Negative for color change and rash. Neurological: Negative for dizziness and headaches. Psychiatric/Behavioral: Negative for agitation and behavioral problems. Scheduled Meds: acetaminophen 1,000 mg Oral 4 times per day polyethylene glycol 17 g Oral Daily sennosides-docusate sodium 2 tablet Oral Daily trospium 20 mg Oral BID AC sodium chloride flush 5-40 mL Intravenous 2 times per day pantoprazole 40 mg Intravenous Daily And sodium chloride (PF) 10 mL Intravenous Daily mirtazapine 15 mg Oral Nightly tamsulosin 0.4 mg Oral Daily Continuous Infusions: lactated ringers 125 mL/hr at 02/27/21 0904 sodium chloride PRN meds used in last 24hrs: Zofran x4 times, ketorolac 30 mg x3, Dilaudid IV 0.5 mg almost around the clock Q4Hs, Haldol 1 mg x1 Objective: BP (!) 150/98 Pulse 104 Temp 98.4 F (36.9 C) (Oral) Resp 16 Ht 5' 9.02 (1.753 m) Wt 193 lb (87.5 kg) LMP 11/09/2020 (Approximate) SpO2 99% BMI 28.49 kg/m Physical Exam Constitutional: General: She is not in acute distress. Appearance: Normal appearance. She is normal weight. She is ill-appearing. Comments: Very uncomfortable looking HENT: Head: Normocephalic and atraumatic. Nose: Nose normal. No congestion. Mouth/Throat: Mouth: Mucous membranes are moist. Pharynx: No oropharyngeal exudate. Eyes: Conjunctiva/sclera: Conjunctivae normal. Pupils: Pupils are equal, round, and reactive to light. Cardiovascular: Rate and Rhythm: Normal rate and regular rhythm. Pulses: Normal pulses. Heart sounds: Murmur (2/6 systolic murmur) heard. No friction rub. Pulmonary: Effort: Pulmonary effort is normal. No respiratory distress. Breath sounds: Normal breath sounds. No wheezing. Abdominal: General: Abdomen is flat. Bowel sounds are normal. There is no distension. Palpations: There is no mass. Tenderness: There is no abdominal tenderness (diffusely, worsened on L quandrants). There is no right CVA tenderness or left CVA tenderness. Musculoskeletal: General: No swelling or tenderness. Normal range of motion. Cervical back: Normal range of motion. No rigidity. Right lower leg: No edema. Left lower leg: No edema. Skin: General: Skin is warm and dry. Findings: Lesion (small clean post-op lesions) present. No rash. Neurological: General: No focal deficit present. Mental Status: She is oriented to person, place, and time. Mental status is at baseline. Cranial Nerves: No cranial nerve deficit. Sensory: No sensory deficit. Psychiatric: Mood and Affect: Mood normal. Behavior: Behavior normal. [facility] within last 24 hours Lab Results Component Value Date/Time WBC 8.0 02/27/2021 05:05 AM Hemoglobin 10.9 (L) 02/27/2021 05:05 AM Hematocrit 33.5 (L) 02/27/2021 05:05 AM Platelets 372 02/27/2021 05:05 AM MCV 80.4 02/27/2021 05:05 AM Lab Results Component Value Date/Time Sodium 136 02/27/2021 05:05 AM Potassium 3.8 02/27/2021 05:05 AM Chloride 102 02/27/2021 05:05 AM CO2 19 (L) 02/27/2021 05:05 AM BUN 7 02/27/2021 05:05 AM CREATININE 0.58 02/27/2021 05:05 AM Glucose 80 02/27/2021 05:05 AM Calcium 9.5 02/27/2021 05:05 AM Magnesium 1.5 (L) 02/27/2021 05:05 AM Phosphorus 3.3 02/27/2021 05:05 AM Lab Results Component Value Date/Time AST 22 02/27/2021 05:05 AM ALT 13 02/27/2021 05:05 AM Total Protein 7.8 02/27/2021 05:05 AM Albumin,Serum 4.4 02/27/2021 05:05 AM Total Bilirubin 0.6 02/27/2021 05:05 AM Alkaline Phosphatase 55 02/27/2021 05:05 AM Assessment and Plan: Intractable nausea and vomiting - Etiology unclear, urology states this is not likely from L stent; THC neg; unlikely infectious given no leukocytosis and afebrile - Minimal relief with Zofran, Haldol; pt denied Linzess trial per GI - Multiple BMs yesterday including large BM with Gastrogaffin enema. - GI to pursue EGD tomorrow, 02/28 - CT Head if EGD neg - Will order TTG (celiac), TSH and A1c HAGMA Hypomagnesemia - Bicarb 19 with AG 15; BHB 33.4 - Etiology likely starvation ketosis given very limited PO intake in the past week - Has been on IVF NS/LR - Will begin D50 with 1/2 NS at 150cc/hr given NPO and persistent vomiting - Will replete Mg with Mag-Delay Abdominal pain - Etiology repeating retching along with post-operative from L stent placement 02/13 - Has been on 0.5 mg IV Dilaudid Q4H, however, opiate do not treat stent pain and pt previously constipated and with possibility to slow bowels will need to down titrate opiates - 1g Tylenol Q6H; will decrease Dilaudid to 0.25 mg Q4H PRN 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 Kinsey 03/13/2021 Hx of endometrial adenocarcinoma hysterectomy with bilateral salpingo- oophorectomy and sentinel lymph node sample - Total hysterectomy with salpingectomy 12/18/2020 with thermal injury to L ureter and initial stentplaced 12/28 - Stable Hx of PCOS - Stable - Goals of Care: FULL CODE - DVT Prophylaxis: SCDs - GI Prophylaxis: Protonix daily - Diet: NPO and Clear Liquids Associated attestation - David Long MD - 02/27/2021 3:49 PM EDT I have discussed the care of Addis Torres with the medical student and/or resident. I have personally taken a history, examined the patient, and performed the associated medical decision making activities. I have reviewed & verified the attested documentation. Unless otherwise noted below, this documentation reflects the history, physical exam, and medical decision making that I performed myself. Please see note for my personal highlights or additions in Green. Patient seen and examined by myself at 1310 on 02/27/21 Farah Changes to Care Plan: - With mild starvation ketosis - bolus IVF then add dextrose to IVF - EGD tomorrow per GI - consider trial of compazine Pager: [phone] I spent over 51% total time of 45 minutes counseling (or coordinating care). Discussed current planof care with patient. Coordinated care with resident team. Also discussed options for nausea and differential. * Shonna Herrera, RN - 02/27/2021 9:[address] Sanchez patient refusing any PO medications stating it will make me throw up. Beta-hydroxybutyrate 33.30. Hat placed in toilet to catch next urine to send for lab. Inquired if Dr Sanchez would like PO Mag by IV as patient is not taking anything PO. Messaged Dr Sanchez patient reports 10/10 chest tightness. Obtaining STAT EKG at this time. Inquired if he would like this RN to administer Dilaudid for the chest pain. Will continue to monitor. Sherrill Rivero MEDICAL LAB SPECIALIST read EKG, stated it was fine. * Aniyah Claros PA-C - 02/27/2021 9:16 AM EDT Department of Internal Medicine Gastroenterology Attending Progress Note SUBJECTIVE: GI following for constipation and nausea Today, she continues to have nausea and vomiting. She had two episodes overnight with no blood or bile noted. She did not like the gastrografin enema as it was painful, but she had had about 20 bowelmovements since. Denies any melena or hematochezia. She is not tolerating anything by mouth Medications Current Facility-Administered Medications: haloperidol lactate (HALDOL) injection 1 mg, 1 mg, Intramuscular, Q6H PRN hydrALAZINE (APRESOLINE) injection 10 mg, 10 mg, Intravenous, Q6H PRN labetalol (NORMODYNE;TRANDATE) injection 10 mg, 10 mg, Intravenous, Q6H PRN acetaminophen (TYLENOL) tablet 1,000 mg, 1,000 mg, Oral, 4 times per day HYDROmorphone (DILAUDID) injection 0.25 mg, 0.25 mg, Intravenous, Q4H PRN lactated ringers infusion, , Intravenous, Continuous polyethylene glycol (GLYCOLAX) packet 17 g, 17 g, Oral, Daily sennosides-docusate sodium (SENOKOT-S) 8.6-50 MG tablet 2 tablet, 2 tablet, Oral, Daily trospium (SANCTURA) tablet 20 mg, 20 mg, Oral, BID AC bisacodyl (DULCOLAX) suppository 10 mg, 10 mg, Rectal, Daily PRN sodium chloride flush 0.9 % injection 5-40 mL, 5-40 mL, Intravenous, 2 times per day sodium chloride flush 0.9 % injection 5-40 mL, 5-40 mL, Intravenous, PRN 0.9 % sodium chloride infusion, 25 mL, Intravenous, PRN ondansetron (ZOFRAN-ODT) disintegrating tablet 4 mg, 4 mg, Oral, Q8H PRN OR ondansetron (ZOFRAN) injection 4 mg, 4 mg, Intravenous, Q6H PRN pantoprazole (PROTONIX) injection 40 mg, 40 mg, Intravenous, Daily AND sodium chloride (PF) 0.9% injection 10 mL, 10 mL, Intravenous, Daily ketorolac (TORADOL) injection 30 mg, 30 mg, Intravenous, Q6H PRN mirtazapine (REMERON) tablet 15 mg, 15 mg, Oral, Nightly tamsulosin (FLOMAX) capsule 0.4 mg, 0.4 mg, Oral, Daily OBJECTIVE VITALS: BP (!) 150/98 Pulse 104 Temp 98.4 F (36.9 C) (Oral) Resp 16 Ht 5' 9.02 (1.753 m) Wt 193 lb (87.5 kg) LMP 11/09/2020 (Approximate) SpO2 99% BMI 28.49 kg/m TEMPERATURE: Current - Temp: 98.4 F (36.9 C); Max - Temp Av.8 F (37.1 C) Min: 98 F (36.7 C) Max: 99.9 F (37.7 C) RESPIRATIONS RANGE: Resp Av Min: 16 Max: 20 PULSE RANGE: Pulse Av.7 Min: 85 Max: 104 BLOOD PRESSURE RANGE: Systolic (24hrs), Av , Min:138 , Max:163 ; Diastolic (24hrs), Av, Min:78, Max:106 PULSE OXIMETRY RANGE: SpO2 Av % Min: 98 % Max: 100 % 24HR INTAKE/OUTPUT: Intake/Output Summary (Last 24 hours) at 02/27/2021 0916 Last data filed at 02/27/2021 0904 Gross per 24 hour Intake 5404 ml Output 270 ml Net 5134 ml GENERAL: Pleasant and NAD, resting in bed, ill appearing HEENT: NCAT, PERRLA, EOMI, Scleral anicteric. Oropharhynx clear with no erythema or exudate. Neck supple, no cervical LAD or thyromegaly. CV: RRR, NL S1/S2, no murmurs. Distal pulses palpable and equal b/l. LUNGS: CTA b/l. Normal palpation. No W/R/R. ABD: + BS, soft, non-tender and non-distended. No hepatosplenomegaly. No mass felt. No rebound or guarding. EXT: No C/C/E. No muscle atrophy. Skin: No skin lesion or breakdown. Lymph: No cervical or supraclavicular LAD. Musculoskeletal: Strength 5/5 in all exts. No joint tenderness or effusions in LEs. Neurologic: A&O x 3, CN II-XII grossly intact. DTR +2 symmetric in patella. Normal cerebellar fxn. Non-focal. Data Recent blood work, radiologic study and endoscopic study were reviewed with the patient. CBC: Recent Labs 02/25/21 0614 02/26/21 0414 02/27/21 0505 WBC 11.8* 6.3 8.0 RBC 4.15 3.83 4.16 HGB 11.1* 10.2* 10.9* HCT 33.3* 30.9* 33.5* MCV 80.1 80.5 80.4 MCH 26.9 26.6 26.2 MCHC 33.5 33.0 32.6 RDW 14.1 14.3 14.5 PLT 358 359 372 MPV 7.0* 7.0* 7.3* CMP: Recent Labs 02/25/21 0614 02/26/21 0414 02/27/21 0505 NA 135 137 136 K 4.2 3.7 3.8 CL 101 103 102 CO2 23 23 19* BUN 6* 7 7 CREATININE 0.71 0.63 0.58 GLUCOSE 100 90 80 CALCIUM 9.3 9.3 9.5 PROT -- 7.4 7.8 LABALBU -- 4.0 4.4 BILITOT -- 0.5 0.6 ALKPHOS -- 55 55 AST -- 20 22 ALT -- 13 13 PT/INR: No results for input(s): INR in the last 72 hours. Radiology Review: Gastrografin enema 02/26/2021 IMPRESSION: 1. Large amount of fecal residue which can obscure an abnormal/pathological filling defect/mass. No obvious lesion seen. 2. Left ureteral stent observed. ASSESSMENT AND PLAN Intractable nausea and vomiting - uncontrolled with anti-emetics and antinausea medications Abdominal pain - likely post surgical, could be continued pain from ureteral injury and stent placement or adhesives disease Constipation - improved after enema Hx endometrial cancer s/p hysterectomy complicated by L ureteral injury - urology evaluated, stent has been removed PLAN - Will obtain EGD with Dr Alvarado 02/28, patient is agreeable - Recommend bowel regimen, can give up to Miralax TID with Senna 2x at night, okay to hold for diarrhea - If not tolerating miralax could consider initiation of Linzess, patient not interested at this time - Could consider CT head for neurogenic causes of intractable nasuea and vomiting - Currently NPO, okay for clear liquids from a GI standpoint, would not advance until passing stooland nausea controlled - Continue supportive care per primary team * Chip French, - 02/27/2021 1:39 AM EDT S. Called upon to evaluate patient for nausea and HTN. Pt is a 21 y.o F who was admitted for nausea/ emesis. Pt endorses nausea, abdominal pain greatest at the LLQ. States she is allergic to phenergan and not sure what has helped in the past for nausea. Pt had a BM after enema yesterday. O. V 98.3, RR 17, P 98, BP 160/106. On physical exam heart RR, abdominal pain LLQ. A/P Intractable nausea. Will get a EKG to look at QTC and then add haldol as second line to the Zofran. Will add prn hydralazine and labetalol for bp >160 * Sherrill Rivero APRN - CNP - 02/26/2021 8:27 PM EDT Patient changed to inpatient status per [facility] recommendations. Discussed with Med team Dr Go Main and he is agreeable to accept patient for continued medical management under Dr Butler. * Sherrill Rivero APRN - CNP - 02/26/2021 9:46 AM EDT Images from the original note were not included. CDU Progress Note 02/26/2021 9:46 AM Subjective: Admit Date: 02/23/2021 PCP: No primary care provider on file. Interval History: continues to complain of LLQ abdominal pain, mild, (+) TTP. (+) nausea with vomiting. GI consult ordered. Denies chest pain, sob, diarrhea, fevers, or chills. Diet NPO Exceptions are: Sips of Water with Meds Patient Vitals for the past 96 hrs (Last 3 readings): Weight 02/23/21 0957 193 lb (87.5 kg) Medications: lactated ringers 125 mL/hr at 02/26/21 0255 sodium chloride haloperidol lactate 1 mg Intramuscular Once polyethylene glycol 17 g Oral Daily acetaminophen 1,000 mg Oral 3 times per day sennosides-docusate sodium 2 tablet Oral Daily trospium 20 mg Oral BID AC sodium chloride flush 5-40 mL Intravenous 2 times per day pantoprazole 40 mg Intravenous Daily And sodium chloride (PF) 10 mL Intravenous Daily mirtazapine 15 mg Oral Nightly tamsulosin 0.4 mg Oral Daily LABS: Recent Results (from the past 24 hour(s)) Add On Lab Test Collection Time: 02/25/21 1:54 PM Result Value Ref Range Add On Accepted NA Add On Lab Test Collection Time: 02/25/21 4:31 PM Result Value Ref Range Add On Rejected NA CBC Auto Differential Collection Time: 02/26/21 4:14 AM Result Value Ref Range WBC 6.3 3.6 - 10.7 10*3/uL RBC 3.83 3.80 - 5.20 10*6/uL Hemoglobin 10.2 (L) 11.7 - 16.0 g/dL Hematocrit 30.9 (L) 35.0 - 47.0 % MCV 80.5 79.0 - 98.0 fL MCH 26.6 26.0 - 34.0 pg MCHC 33.0 32.0 - 36.0 % RDW 14.3 11.5 - 14.5 % Platelets 359 140 - 440 10*3/uL MPV 7.0 (L) 7.4 - 10.4 fL Granulocytes % 74.4 40.0 - 80.0 % Lymphocyte % 16.7 (L) 20.0 - 40.0 % Monocytes 7.3 2.0 - 10.0 % Eosinophils 0.9 (L) 1.0 - 6.0 % Basophils 0.7 0.0 - 2.0 % Absolute Neut # 4.7 1.8 - 7.0 10*3/uL Absolute Lymph # 1.1 1.0 - 4.3 10*3/uL Absolute [place] # 0.5 0.0 - 0.8 10*3/uL Absolute Eos # 0.1 0.0 - 0.5 10*3/uL Absolute Baso # 0.0 0.0 - 0.2 10*3/uL Basic Metabolic Panel Collection Time: 02/26/21 4:14 AM Result Value Ref Range Sodium 137 135 - 145 mmol/L Potassium 3.7 3.5 - 5.1 mmol/L Chloride 103 98 - 107 mmol/L CO2 23 22 - 30 mmol/L Anion Gap 11 3 - 13 mmol/L Glucose 90 70 - 100 mg/dL BUN 7 7 - 20 mg/dL CREATININE 0.63 0.52 - 1.25 mg/dL eGFR >90.0 >60 mL/min EGFR IF NonAfrican [place] >90.0 >60 mL/min Calcium 9.3 8.4 - 10.4 mg/dL Lactic Acid, Plasma Collection Time: 02/26/21 4:14 AM Result Value Ref Range Lactic Acid 0.6 (L) 0.7 - 2.0 mmol/L Sedimentation Rate Collection Time: 02/26/21 4:14 AM Result Value Ref Range Sed Rate 50 (H) 0 - 20 mm/h C-Reactive Protein Collection Time: 02/26/21 4:14 AM Result Value Ref Range CRP <5.0 0.0 - 6.0 mg/L Hepatic Function Panel Collection Time: 02/26/21 4:14 AM Result Value Ref Range Albumin,Serum 4.0 3.5 - 5.0 g/dL Total Protein 7.4 6.3 - 8.2 g/dL Total Bilirubin 0.5 0.2 - 1.3 mg/dL Bilirubin, Direct 0.0 0.0 - 0.3 mg/dL Alkaline Phosphatase 55 38 - 126 U/L ALT 13 0 - 34 U/L AST 20 15 - 46 U/L Urine Culture: Results for orders placed or performed during the hospital encounter of 02/23/21 Culture, Urine Specimen: Urine Result Value Ref Range Urine Culture, Routine Normal urogenital kristin present. Objective: Vitals: BP (!) 142/89 Pulse 81 Temp 98.1 F (36.7 C) (Temporal) Resp 16 Ht 5' 9.02 (1.753 m) Wt 193 lb (87.5 kg) LMP 11/09/2020 (Approximate) SpO2 97% BMI 28.49 kg/m Pulse Ox: SpO2 Av.5 % Min: 95 % Max: 100 % Supplemental O2: General appearance: alert and cooperative with exam Lungs: clear to auscultation bilaterally Heart: regular rate and rhythm, S1, S2 normal, no murmur, click, rub or gallop Abdomen: soft, LLQ mild TTP, non distended. Hypoactive bowel sounds. No masses or organomegaly Extremities: extremities normal, atraumatic, no cyanosis or edema Neurologic: No obvious focal neurologic deficits. Psychiatric: Normal affect, denies any suicidal ideation or active depression. Assessment and Plan 1. Intractable n/v- IVF support, monitor I/Os, Zofran , Haldol if patient is still nauseated. Lipase and other labs are WNL, clear liquids, GI consult ordered: no improvement in symptoms 2. Constipation- Dilaudid most likely adding to this patient encouraged to use Toradol, on flomax ,bowel protocol in place, monitor I/Os, on IVF 3. FEN- clears: AAT 4. DVT prophylaxis- SCDs 5. GI prophylaxis- protonix Past Medical History: Diagnosis Date Cancer (HCC) endometrial History of blood transfusion oct 2020 PCOS (polycystic ovarian syndrome) Advance Directive: Full Code Discharge planning: home when medically stable NOMAN Leos CNP, DRIP MOLDER * Patience Geiger APRN - CNP - 02/26/2021 5:08 AM EDT Images from the original note were not included. 02/25/2021 (0358) Pt reassessed for intractable NV and LLQ abdominal pain. Anali Johnson RN reports bile colored emesis overnight. Patient states that she isn't eat due to nausea and vomiting. She states that Zofran, Haldol, and Dilaudid helps her the most. She rates LLQ abdominal pain 10/10 at its worst and 5-6 out of 10 at its best. She currently denies having any flank pain. Currently no bilateral CVA tenderness on exam. She is mildly TTP (LLQ). No epigastric, upper right or left, and or RLQ tenderness to palpation appreciated. No rebound or guarding. Patient resting in semi-fowlers position. Very calm demeanor. Non-toxic but ill appearing. She looks miserable. NAD. Vitals noted below. Nocrying, moaning, or grimacing noted during assessment. Currently no bilateral CVA tenderness on exam. Patient states that she still isn't able to tolerate much in oral intake. Just a few random sips with medications. She states that she's only eaten a peanut butter sandwich and a bag of chips since admission. Nothing to eat yesterday. She states that she has had 5 small soft liquid bowel movements within the past 36 hours (yellow- brown in color). Non- bloody. Recommended enema, however, patient declined. Will continue Miralax, Colace, and Senokot as ordered. Will continue antiemetics and pain management as ordered. Patient endorse generalized weakness and fatigue. Denies dizziness, lightheadedness, SOB, CP, back pain, extremity pain, and or acute ripping or tearing sensation. Urology wasconsulted and patient has been (pls review consult/ progress notes). Will repeat (Abdominal KUB) toreassess left ureteral stent, ? Stool burden if any, as well as other intra-abdominal abnormalilites. Will obtain repeat CBC with diff, BMP, hepatic functions panel. Will obtain lactic acid level, ESR, and CRP. Serum lipase 76 yesterday. Abdominal pain likely 2/2 left ureteral stent placement or constipation, although other intra- abdominal abnormalities can't be totally excluded at this time. Will also consult GI for further eval, per patient request. Input appreciated. Patient has been updatedon all diagnostic test results and plan of care. She verbablize that she is in agreement. Will continue to assess patient as needed. Patience Geiger, NOMAN-DRIP MOLDER Clinical Decision Unit Date/Time Temp Resp Pulse BP ABP (Arterial line BP) Patient Position FiO2 O2 Flow Rate (L/min) SpO2O2 Device Pain Level Weight BMI (Calculated) 02/26/21 04:34:53 97.9 (36.6) 16 98 138/88 Supine 98 None (Room air) 02/26/21 0247 8 02/26/21 0108 6 02/26/21 0035 5 02/25/21 2156 9 02/25/211999 150/88 BP: manual retake at 02/25/21199902/25/21 19:42:19 99.4 (37.4) 18 123 150/101 100 BP: dry heaves at 02/25/21 1942 02/25/21 15:48:48 98.8 (37.1) 18 116 128/80 Supine 95 None (Room air) 02/25/21 1452 4 02/25/21 1422 10 02/25/21 1049 4 02/25/21 1019 10 02/25/21 07:21:48 98.3 (36.8) 18 109 158/101 Supine 99 None (Room air) 02/25/21 0541 10 02/25/21 02:45:23 98.5 (36.9) 16 97 152/89 Sitting 96 None (Room air) 02/25/21 0107 10 Previous radiographic imaging studies: XR ABDOMEN (KUB) (SINGLE AP VIEW) 02/23/2021 Impression: 1. Left ureteral double-J stent in expected position. 2. Nonspecific bowel gas pattern without evidence of obstruction. Moderate amount of fecal residue throughout normal caliber large bowel. 3. No other significant radiographic abnormality. CT Abdomen Pelvis Wo Contrast 02/22/[address] ABDOMEN AND PELVIS WITHOUT CONTRAST CLINICAL INDICATION: Left lower quadrant pain Serial axial CT images of the abdomen and pelvis were acquired without intravenous contrast. Oral contrast was not given for this study. COMPARISON: 02/11/2021 FINDINGS: Left ureteral stent is in place, terminating within the urinary bladder. No hydronephrosis or hydroureter is identified. No renal or ureteral stones are seen. The uterus has been removed. The liver, gallbladder, spleen, pancreas, and adrenal glands are grossly unremarkable in appearance on this noncontrast examination. No retroperitoneal or pelvic lymphadenopathy is seen. The abdominal aorta is normal in caliber. The large and small bowel is unremarkable in appearance, without evidence of thickening or dilatation. No free fluid is seen within the abdomen or pelvis. There is no free air under the diaphragm. Slight atelectasis is noted within the lung bases. No lytic or blastic lesions are seen on the bone windows. IMPRESSION: Since the study from 02/11/2021, there has been placement of a left ureteral stent, which terminates within the urinary bladder. Previously noted left-sided hydronephrosis and hydroureter has resolved. * Yamile Maldonado APRN - CNP - 02/25/2021 2:52 PM EDT Images from the original note were not included. Hospitalist Progress Note 02/25/2021 2:53 PM [phone]: Please page me ([phone]) for patient care issues. [phone]: Please page [facility] night Hospitalist for any issues. Subjective: Admit Date: 02/23/2021 PCP: No primary care provider on file. Room#: G10/E69836 Interval History: Patient continues with nausea, dry heaving, abdominal pain. Urology discussed plan with patient and signed off. Goal is for patient to tolerate PO. Urology suggested constipation may be contributing to her N/V. Patient had small soft BM this am. She has been using the Zofran. Today she is finished with the Bactrim and her Urine culture was negative. ADULT DIET; Clear Liquid Patient Vitals for the past 96 hrs (Last 3 readings): Weight 02/23/21 0957 193 lb (87.5 kg) 24HR INTAKE/OUTPUT: Intake/Output Summary (Last 24 hours) at 02/25/2021 1453 Last data filed at 02/24/2021 1730 Gross per 24 hour Intake 400 ml Output Net 400 ml Past Medical History: Diagnosis Date Cancer (HCC) endometrial History of blood transfusion oct 2020 PCOS (polycystic ovarian syndrome) Medications: lactated ringers 100 mL/hr at 02/25/21 0700 sodium chloride polyethylene glycol 17 g Oral Daily acetaminophen 1,000 mg Oral 3 times per day sennosides-docusate sodium 2 tablet Oral Daily trospium 20 mg Oral BID AC sodium chloride flush 5-40 mL Intravenous 2 times per day pantoprazole 40 mg Intravenous Daily And sodium chloride (PF) 10 mL Intravenous Daily mirtazapine 15 mg Oral Nightly tamsulosin 0.4 mg Oral Daily LABS: CBC: Recent Labs 02/23/21 1007 02/24/21 0432 02/25/21 0614 WBC 11.6* 6.5 11.8* RBC 4.53 3.86 4.15 HGB 12.0 10.1* 11.1* HCT 36.2 30.6* 33.3* MCV 80.0 79.1 80.1 RDW 14.5 14.5 14.1 PLT 444* 336 358 BMP: Recent Labs 02/23/21 1007 02/24/21 0432 02/25/21 0614 NA 139 138 135 K 4.3 3.9 4.2 CL 107 105 101 CO2 23 26 23 BUN 9 4* 6* CREATININE 0.84 0.71 0.71 GLUCOSE 94 75 100 CALCIUM 9.9 9.2 9.3 ANIONGAP 9 7 11 LIVER PROFILE: Recent Labs 02/23/21 1007 AST 26 ALT 23 BILITOT 0.6 ALKPHOS 68 LABALBU 4.6 PROT 8.6* PT/INR: No results for input(s): PROTIME, INR in the last 72 hours. CARDIAC ENZYMES: No results for input(s): TROPONINI in the last 72 hours. Procalcitonin: Lab Results Component Value Date PROCAL 4.78 02/11/2021 COVID-19 PCR: No results for input(s): COVID19 in the last 72 hours. Objective: Vitals: BP (!) 158/101 Pulse 109 Temp 98.3 F (36.8 C) (Temporal) Resp 18 Ht 5' 9.02 (1.753m) Wt 193 lb (87.5 kg) LMP 11/09/2020 (Approximate) SpO2 99% BMI 28.49 kg/m Pulse Ox: SpO2 Av.8 % Min: 96 % Max: 100 % Supplemental O2: General appearance: No apparent distress, appears stated age and cooperative with exam HEENT: Normal cephalic, atraumatic without obvious deformity. Pupils equal, round, and reactive to light. Extra ocular muscles intact. Conjunctivae/corneas clear. Neck: Supple, with full range of motion. No jugular venous distention. Trachea midline. No lymphadenopathy. Respiratory: Normal respiratory effort. Clear to auscultation, bilaterally without Rales/Wheezes/Rhonchi. Cardiovascular: Regular rate and rhythm with normal S1/S2 without murmurs, rubs or gallops. Abdomen: Soft, non-tender, non-distended with normal bowel sounds. No rebound or guarding. Musculoskeletal: No clubbing, cyanosis or edema bilaterally. Full range of motion without deformity. Skin: Skin color, texture, turgor normal. No rashes or lesions. Neurologic: Neurovascularly intact without any focal sensory/motor deficits. Cranial nerves: II-XIIintact, grossly non-focal. Assessment & Plan 1. Intractable n/v- IVF support, monitor I/Os, Zofran , Haldol if patient is still nauseated. Lipase and other labs are WNL, clear liquids, if no improvement consider GI consult 2. Constipation- Dilaudid most likely adding to this patient encouraged to use Toradol, on flomax ,bowel protocol in place, monitor I/Os, on IVF 3. FEN- clears 4. DVT prophylaxis- SCDs 5. GI prophylaxis- protonix -am labs, replace lytes prn -increase activity -DVT prophylaxis: [] Lovenox [] Heparin [x] SCDs [x] Encourage ambulation [] Already on Anticoagulation Advance Directive: Full Code Discharge planning: DAMIÁN MALDONADO APRN - DRIP MOLDER Division of Hospitalist Medicine Inpatient Medical Services PAGER: [phone] * Joanne Fuentes RD, LD - 02/25/2021 2:48 PM EDT Comprehensive Nutrition Assessment Type and Reason for Visit: Initial Nutrition Recommendations/Plan: 1. Advance diet as medically feasible. Patient with poor oral intake, nausea and emesis x 5 days prior to admission- currently patient without adequate nutrition x 1 week. Declined clear liquid oral nutrition supplements 2. Per MNT protocol, pended Ensure Enlive supplements twice daily- to be released upon diet advancement Ensure Enlive BID will provide: +700 kcal, 40 g protein daily 3. Consider addition of MVI 4. Obtain standing scale weight when able for most accurate anthropometric data 5. RD to continue to monitor weekly- changes in fluid accumulation, weight, skin integrity, lab values, intakes and changes in clinical status and/or goals of care Nutrition Assessment: 21 year old female with PMHx: PCOS, endometrial cancer- s/p hysterectomy and salpingectomy with Dr Escobedo on 12/18/20; and s/p left ureteral stent placement on 02/12/21. Per H+P: presents from [facility] for a 5 days history of nausea and vomiting. Patient had ureteral stents placed 2 weeks ago and states she has n/v after that. She states she had relief in the ER with Zofran Urology was called in ED and deferred being consulted, patient is to keep her follow up appointment as they felt patient's status in not concerning from a urological standpoint. She is on Bactrim after stent placement, she tolerated this medication for a week before n/v started so doubtful this is the cause. Patient was having flank pain in the ED but states it was relieved with pain medication. Stent placement was verified with KUB. Denies chest pain, sob, abdominal pain, diarrhea, constipation, fevers, or chills. KUB obtained on 02/23 showed: moderate amount of fecal residue throughoutnormal caliber large bowel. Per TRAFFIC MANAGER-DRIP MOLDER note this morning (02/25): Nurse reports that patient has been dry heaving throughout the night. Patient reports that she had 1 small soft brown BM last night. At time of visit, patient lying in bed and visibly uncomfortable. Patient reports poor appetite and oral intake x 1 week prior to admission. Endorses nausea and emesis, feelings of bloating and cramping pain. Prior to feeling ill, patient was eating twice daily. She previously has taken Ensure supplements, declined Ensure clear, and is agreeable to taking again when diet advances. Reports usualbody weight to be 195#- which is close to her post-op office visit weight obtained on 01/08/21. Consent obtained and NFPE completed Malnutrition Assessment: Malnutrition Status: At risk for malnutrition (Comment) (due to poor oral intake for > 1 week) Context: Acute Illness Findings of the 6 clinical characteristics of malnutrition: Energy Intake: 1 - 75% or less of estimated energy requirements for 7 or more days Weight Loss: No significant weight loss (-4.2% weight loss over 1 month) Body Fat Loss: No significant body fat loss Muscle Mass Loss: No significant muscle mass loss Fluid Accumulation: No significant fluid accumulation Supervisor [employer] Strength: Not Performed Estimated Daily Nutrient Needs: Energy (kcal): 2428-8192 (25-30 kcal/kg IBW<54.4 kg>); Weight Used for Energy Requirements: [place] (54.4 kg) Protein (g): 54-65 (1.0-1.2 g protein/kg IBW<54.4 kg>); Weight Used for Protein Requirements:[place] (54.4 kg) Fluid (ml/day): 4176-3221 or per MD; Method Used for Fluid Requirements: 1 ml/kcal Nutrition Related Findings: +I/O Balance = +400. Sachin score = 21. +small bowel movement overnight. No edema or skin breakdown noted. Labs and medications reviewed: Wounds: None Current Nutrition Therapies: ADULT DIET; Clear Liquid Anthropometric Measures: Height: 5' 9.02 (175.3 cm) Current Body Weight: 189 lb 8 oz (86 kg) (02/25/21) Admission Body Weight: 192 lb 14.4 oz (87.5 kg) (02/23/21) Usual Body Weight: 197 lb 12 oz (89.7 kg) (post-op visit weight on 01/08/21) [place] Body Weight: 145 lbs; % [place] Body Weight 130.7 % BMI: 28 BMI Categories: Overweight (BMI 25.0-29.9) Nutrition Diagnosis: Inadequate energy intake related to altered GI function as evidenced by vomiting, nausea, constipation Nutrition Interventions: Food and/or Nutrient Delivery: Start Oral Diet, Vitamin Supplement, Mineral Supplement, Start Oral Nutrition Supplement (when medically feasible. Add daily MVI, and pended Ensure supplement on diet advance) Nutrition Education/Counseling: No recommendation at this time Coordination of Nutrition Care: Continue to monitor while inpatient Goals: patient to have adequate nutrition within the next 48 hours Nutrition Monitoring and Evaluation: Behavioral-Environmental Outcomes: None Identified Food/Nutrient Intake Outcomes: Diet Advancement/Tolerance, Food and Nutrient Intake, Supplement Intake Physical Signs/Symptoms Outcomes: Nutrition Focused Physical Findings, Nausea or Vomiting, Fluid Status or Edema, Meal Time Behavior, GI Status, Constipation, Biochemical Data, Weight, Skin Discharge Planning: Too soon to determine Contact: *[id number] * Gela Ochoa MD - 02/25/2021 7:49 AM EDT UROLOGY PROGRESS NOTE PATIENT NAME: Addis Torres DATE OF : 2000 ADMISSION DATE: 02/23/2021 9:37 AM TODAY'S DATE: 02/25/2021 Subjective Request for reevaluation of patient. Reportedly she told MEDICAL LAB SPECIALIST that she wanted her stent out. She continues with left sided pain, nausea, and emesis. She denies fever, chills. We discussed her situationand why she has the stent. I explained that the other option would be a PNT for drainage of the urine until definitive treatment. She did not want a PNT. Discussed risk of infection if stent is removed and her presentation last time prior to stent re-insertion. She understood and stated she didn't want to risk the infection. Patient reportedly had small BM. Suggest aggressive bowel regiment and bowel clean out as this may be worsening patient's symptoms Objective VS: BP (!) 158/101 Pulse 109 Temp 98.3 F (36.8 C) (Temporal) Resp 18 Ht 5' 9 (1.753 m) Wt 193 lb (87.5 kg) LMP 11/09/2020 (Approximate) SpO2 99% BMI 28.50 kg/m Vitals: 02/25/21 0721 BP: (!) 158/101 Pulse: 109 Resp: 18 Temp: 98.3 F (36.8 C) SpO2: 99% I & O - 24hr: Intake/Output Summary (Last 24 hours) at 02/25/2021 0750 Last data filed at 02/24/2021 1730 Gross per 24 hour Intake 400 ml Output Net 400 ml Physical Exam: General: Neck: Resp: Abdomen: No acute distress Supple Normal effort, no respiratory distress Soft, non-tender, nondistended : No CVA TTP Skin: Skin color, texture, turgor normal, no rashes or lesions Labs and Imaging Studies Labs: CBC: Recent Labs 02/23/21100602/24/21 0432 02/25/21 0614 WBC 11.6* 6.5 11.8* HGB 12.0 10.1* 11.1* HCT 36.2 30.6* 33.3* MCV 80.0 79.1 80.1 PLT 444* 336 358 BMP: Recent Labs 02/23/21100602/24/21 0432 02/25/21 0614 NA 139 138 135 K 4.3 3.9 4.2 CL 107 105 101 CO2 23 26 23 BUN 9 4* 6* CREATININE 0.84 0.71 0.71 Magnesium: Lab Results Component Value Date MG 1.8 02/25/2021 Phosphate: Lab Results Component Value Date PHOS 4.3 01/03/2021 PT/INR: No results for input(s): PROTIME, INR in the last 72 hours. U/A: Lab Results Component Value Date LEUKOCYTESUR 75 02/23/2021 WBCUA 3-5 02/23/2021 RBCUA 26-50 02/23/2021 BACTERIA Negative 02/23/2021 GLUCOSEU Normal 02/23/2021 Urine Culture: Component Value Date/Time LABURIN Normal urogenital kristin present. 02/23/2021 1007 Imaging Studies: IMPRESSION: Since the study from 02/11/2021, there has been placement of a left ureteral stent, which terminates within the urinary bladder. Previously noted left-sided hydronephrosis and hydroureter has resolved. Assessment and Plan ASSESSMENT: 21 y.o. female with a history of left ureteral stricture s/p left ureteral stent placement 02/12 who presents with nausea, vomiting, and stent related discomfort. PLAN: - No acute surgical intervention at this time - Maintain left ureteral stent in place - Discussed need for drainage with patient given known stricture. Option of PNT vs stent discussed.Patient does not want a PNT. She does not want to risk infection and hospitalization should the stent be removed. - KUB shows left ureteral stent in proper position, constipation - recommend bowel clean out as constipation could be contributing to abdominal/flank pain. - tylenol/toradol/flomax/oxybutynin for stent pain; opioids not as effective for stent pain and could make constipation worse - Urine culture with normal kritsin - Recommend outpatient follow up with Dr. Barahona as scheduled on 03/13 Alen Savage MD Urology PGY-1 02/25/2021 7:58 AM The history and physical has been reviewed. The pertinent findings from the history of present illness, past medical history, family history, social history, review of systems have been noted and confirmed that are unchanged. Discussed with the urology resident. Agree with assessment and plan * Patience Geiger, NOMAN - DRIP MOLDER - 02/25/2021 7:01 AM EDT 02/25/2021 (0605) Patient evaluated and reassessed at bedside this morning. Patient is currently resting in bed. NAD. She appears very fatigued and uncomfortable. VS have remained stable. Patient reports that she is still experiencing sharp intermittent pain in her left flank and LLQ abdominal pain despite having been administered PRN Dilaudid, Toradol, and [place]. She is also ordered Flomax. She refuses take any more acetaminophen because she says it will make her vomited. Nurse reports thatpatient has been dry heaving throughout the night. Patient reports that she had 1 small soft brown BM last night. She states that she ate a peanut butter sandwich yesterday eveing for which initiallydid tolerate but later vomited during the night. She states that she vomited late last night (unwitnessed). Patient states I want the stent taken out; I want Dr. Barahona to remove it. She than stated, I don't know what to do. Per my assessment, patient non-toxic in appearance. LCTA throughout bilaterally. Abdomen soft, non-distended, bowel sounds present throughout. No rebound or guarding. Mild tenderness noted on palpation of left flank and left lower quadrant. Patient is again requesting reevaluation by Urologist Dr. Heriberto Barahona, whom placed her left ureter stent on 02/11/21. I reassure her that I understood her concerns and was hoping that she would be feeling better by now. I told her that I would reach out to the Urology Resident traffic control specialist and request reevaluation. Will continuesupportive treatment as needed. Will resume LR IVF hydration (100 ml/ hr) and change diet back to clear liquids (advance as tolerated). 02/25/2021 (613) Urology Resident Dr. Alen Savage messaged via [email or web address] concerning patient. 02/25/2021 (06) Received message back from Urology Resident Dr. Alen Savage via [email or web address] as follow: We will see her. But removing her stent does not fix her anatomic abnormality which landed her here with infection prior. She needs definitive management and until then she needs a stent or a PNT for drainage. [facility] Clinical Decision [facility] * Kourtney Heller APRN - CNP - 02/24/2021 7:00 PM EDT Tolerating advanced diet. No BM as of yet. IV fluids stopped since tolerating oral diet/fluids. If pain improved and had BM can likely DC tomorrow Kourtney Heller APRN, CNP * Kourtney Heller APRN - CNP - 02/24/2021 11:02 AM EDT Images from the original note were not included. CDU Progress Note 02/24/2021 11:02 AM Subjective: Admit Date: 02/23/2021 PCP: No primary care provider on file. Interval History: Continues to have left flank, CVA, LLQ pain. Continues with nausea but no vomiting. Has not moved her bowels for several days. Constipation seen on KUB. Explained to pt that this might be contributing to her pain. Pt states this pain is similar to pain felt with previous stent placement. Will still pursue aggressive bowel regiment with the hope of this relieving some of her pain. Per Urology recs: avoid narcs and use Trospium bid and programmed Tylenol. Dilaudid for break through pain. ADULT DIET; Clear Liquid Patient Vitals for the past 96 hrs (Last 3 readings): Weight 02/23/21 0957 193 lb (87.5 kg) Medications: sodium chloride lactated ringers 100 mL/hr at 02/24/21 0809 polyethylene glycol 17 g Oral Daily acetaminophen 1,000 mg Oral 3 times per day oxybutynin 5 mg Oral TID sennosides-docusate sodium 2 tablet Oral Daily sodium chloride flush 5-40 mL Intravenous 2 times per day pantoprazole 40 mg Intravenous Daily And sodium chloride (PF) 10 mL Intravenous Daily mirtazapine 15 mg Oral Nightly sulfamethoxazole-trimethoprim 1 tablet Oral BID tamsulosin 0.4 mg Oral Daily LABS: Recent Results (from the past 24 hour(s)) Add On Lab Test Collection Time: 02/23/21 3:01 PM Result Value Ref Range Add On Accepted NA Basic Metabolic Panel w/ Reflex to MG Collection Time: 02/24/21 4:32 AM Result Value Ref Range Sodium 138 135 - 145 mmol/L Potassium 3.9 3.5 - 5.1 mmol/L Chloride 105 98 - 107 mmol/L CO2 26 22 - 30 mmol/L Anion Gap 7 3 - 13 mmol/L Glucose 75 70 - 100 mg/dL BUN 4 (L) 7 - 20 mg/dL CREATININE 0.71 0.52 - 1.25 mg/dL eGFR >90.0 >60 mL/min EGFR IF NonAfrican [place]ian >90.0 >60 mL/min Calcium 9.2 8.4 - 10.4 mg/dL CBC Collection Time: 02/24/21 4:32 AM Result Value Ref Range WBC 6.5 3.6 - 10.7 10*3/uL RBC 3.86 3.80 - 5.20 10*6/uL Hemoglobin 10.1 (L) 11.7 - 16.0 g/dL Hematocrit 30.6 (L) 35.0 - 47.0 % MCV 79.1 79.0 - 98.0 fL MCH 26.2 26.0 - 34.0 pg MCHC 33.1 32.0 - 36.0 % RDW 14.5 11.5 - 14.5 % Platelets 336 140 - 440 10*3/uL MPV 6.9 (L) 7.4 - 10.4 fL Urine Culture: Results for orders placed or performed during the hospital encounter of 02/23/21 Culture, Urine Specimen: Urine Result Value Ref Range Urine Culture, Routine Normal urogenital kristin present. Objective: Vitals: BP 139/84 Pulse 67 Temp 98.2 F (36.8 C) (Temporal) Resp 18 Ht 5' 9 (1.753 m) Wt 193 lb (87.5 kg) LMP 11/09/2020 (Approximate) SpO2 97% BMI 28.50 kg/m Pulse Ox: SpO2 Av.7 % Min: 91 % Max: 100 % Supplemental O2: General appearance: alert and cooperative with exam Lungs: clear to auscultation bilaterally Heart: regular rate and rhythm, S1, S2 normal, no murmur, click, rub or gallop Abdomen: soft mild tenderness in the left mid and lower quad. + hypoactive BS. Mild Left CVA tenderness Extremities: extremities normal, atraumatic, no cyanosis or edema Neurologic: No obvious focal neurologic deficits. Assessment 1. Intractable N&V - Improving, taking clear liquids only - Continue Zofran 2. S/P left ureteral Stent placement 02/12/21 CT shows good placement - Supportive care with programmed Tylenol, Flomax, Trospium, IV fluids. Dilaudid for breakthrough pain - Urology consult: no intervention needed at this time. Recs appreciated 3. ESBL UTI from urine cx 02/11/21 Repeat cx shows normal kristin: NGTD - Continue current treatment with Bactrim (usual course is 14 days) - Day 13/14. (Last dose 02/25) 3. Constipation by CT - Miralax, Senna - If no BM by afternoon will order Lactulose X 1 4. PCOS/s/p Endometrial cancer - S/p partial hysterectomy F: IV fluids at 100 cc/hr E: Monitor for electrolyte abn N: Clear liquids, ADAT I: PIV P: SCDs/Ambulation/PPI C: Urology Diagnosis Date Cancer (HCC) endometrial History of blood transfusion oct 2020 PCOS (polycystic ovarian syndrome) Advance Directive: Full Code Discharge planning: When medically stable; DC home with Follow-up with Urology as OP NOMAN GARZA CNP, DRIP MOLDER * Patience Geiger APRN - CNP - 02/24/2021 5:24 AM EDT Patient evaluated and assessed at bedside this morning. Patient sitting upright in bed. NAD. VS have remained stable. I have updated her on all diagnostic test results as well as plan of care. She continues with intractable nausea, left flank, and LLQ abdominal pain (10/10 at worst, 5/10 at best), despite having been administered PRN Dilaudid, Toradol, and Zofran. Per patient report, no vomiting since yesterday. No other complaints. Patient indicate that she isn't able to take Phenergan becauseit makes her NV worse. She states that Zofran works best for her. Heating pad ordered and placed this morning for additional comfort. Patient states that she's been urinating without difficulty. LastBM reported on 02/13 (normal for pt). Abdominal KUB yesterday shows moderate amount of fecal residue throughout normal caliber large bowel. Miralax and Colace ordered. Per my assessment, LCTA throughout bilaterally. Abdomen soft, non- distended, bowel sounds x 4 quadrants normal. No rebound or guarding. Mild tenderness noted on palpation of left flank and left lower quadrant. Patient is requesting evaluation by Urologist Dr. Heriberto Barahona, whom placed her left ureter stent on 02/11/21. She states that he told her that he would only leave stent in for a few days and that he my need to remove part of her left ureter due to scaring. Consult placed. I spoke with the traffic control specialist Urology Resident Dr. Kristy Rodriguez concerning patient. He states that Dr. Barahona is not traffic control specialist today but that patient will be evaluated. [facility] documented in this [facility] Work Phone: [phone] History of Present illness Narrative* Shonna Herrera RN - 02/13/2021 3:54 PM EDT Discharge instructions given to and reviewed in detail with patient and her mother. Reviewed followup appointments, new prescriptions to forklift picker as well as times of all next medication doses due. Reviewed s/s to call 911 or her doctor and come back to ER. Patient verbalized understanding of all discharge instructions. Questions answered at time of discharge. IV discontinued per orders. Patient discharged with all belongings. * Shonna Herrera RN - 02/13/2021 1:[address] Savage patient mother at bedside, requesting to speak to her. Patient and her mother updated MD is in the OR and will be down after. * Shonna Herrera RN - 02/13/2021 8:[address] Savage on perfect serve patients urine culture positive for ecoli. Messaged Dr Savage patient reports a constant sharp pain to left flank area. She states at times it becomes sharp and more intense. * Alen Savage MD - 02/13/2021 7:32 AM EDT UROLOGY PROGRESS NOTE PATIENT NAME: Addis Torres DATE OF : 2000 ADMISSION DATE: 02/11/2021 3:09 PM TODAY'S DATE: 02/13/2021 Subjective Afebrile >24h Pain controlled No nausea or emesis Voiding well Objective VS: BP 119/73 Pulse 67 Temp 96.5 F (35.8 C) (Temporal) Resp 18 Ht 5' 9 (1.753 m) Comment: per chart Wt 209 lb 9.6 oz (95.1 kg) LMP 11/09/2020 (Approximate) SpO2 96% BMI 30.95 kg/m Vitals: 02/13/21 0718 BP: 119/73 Pulse: 67 Resp: 18 Temp: 96.5 F (35.8 C) SpO2: 96% I & O - 24hr: Intake/Output Summary (Last 24 hours) at 02/13/2021 0732 Last data filed at 02/12/2021 0838 Gross per 24 hour Intake 100 ml Output Net 100 ml Physical Exam: General: Neck: Resp: Abdomen: No acute distress Supple Normal effort, no respiratory distress Soft, non-tender, nondistended : No CVA TTP Skin: Skin color, texture, turgor normal, no rashes or lesions Labs and Imaging Studies Labs: CBC: Recent Labs 02/11/21 1604 02/12/21 0425 02/13/21 0338 WBC 11.3* 6.8 6.0 HGB 10.3* 8.4* 9.1* HCT 31.4* 25.3* 27.2* MCV 80.8 79.2 78.5* PLT 193 144 199 BMP: Recent Labs 02/11/21 1604 02/12/21 0425 02/13/21 0339 NA 136 135 138 K 4.0 3.5 4.1 CL 104 107 110* CO2 20* 24 23 BUN 11 10 16 CREATININE 0.76 0.60 0.52 Magnesium: Lab Results Component Value Date MG 1.9 02/12/2021 Phosphate: Lab Results Component Value Date PHOS 4.3 01/03/2021 PT/INR: No results for input(s): PROTIME, INR in the last 72 hours. U/A: Lab Results Component Value Date LEUKOCYTESUR 500 02/11/2021 WBCUA >100 02/11/2021 RBCUA 6-10 02/11/2021 BACTERIA Few 02/11/2021 GLUCOSEU Normal 02/11/2021 Urine Culture: Component Value Date/Time LABURIN Escherichia coli (A) 02/11/2021 1707 LABURIN >100,000 CFU/ml 02/11/2021 170 Blood Culture: In process Imaging Studies: IMPRESSION: 1. Interval removal of left ureteral stent, with probable left distal ureteral calculus and mild left hydronephrosis. 2. Mildly heterogeneous enhancement pattern in the left kidney and some left perinephric fat stranding may be reactive and secondary to hydronephrosis versus nonspecific postinflammatory change or UTI. Assessment and Plan ASSESSMENT: 21 y.o. female with history of left ureteral injury on 12/18 during hysterectomy s/p L stent placement 12/22 and replacement 12/26, removal at bedside on 01/20 presented to the ED w/fevers, abd discomfort, nausea and vomiting, s/p cystoscopy, retrograde pyelogram, left ureteroscopy, left ureteral stent placement 02/13 PLAN: - Okay for diet - s/p cystoscopy, retrograde pyelogram, left ureteroscopy, left ureteral stent placement - Urine culture + e coli - Blood cultures in process - CT: mild dilation of left renal collecting system and ureter with heterogenous enhancement pattern of left kidney and very mild left perinephric fat stranding, no apparent renal calcifications; 4mmcalcific density noted in the left distal ureter at the pelvic inlet level and left ureteral dilatation and some periureteral fat stranding - Rocephin - Flomax - Pain/nausea control PRN - Anticipate discharge today Alen Savage MD Urology PGY-1 02/13/2021 7:36 AM * Milla Kennedy, , RD, LD - 02/12/2021 8:59 AM EDT Comprehensive Nutrition Assessment Type and Reason for Visit: Initial, Positive Nutrition Screen Nutrition Recommendations/Plan: 1. Do recommend Regular diet as medically feasible, encouraging PO intake as tolerated by pt given GI complaints. 2. Would also initiate ONS as medically feasible, likely either Ensure Clear or Ensure HP/Enlive option as desired/tolerated by pt. 3. RD to monitor PO intake, GI management, weight, labs, fluid, & follow up weekly. Nutrition Assessment: Pt with PMH including Endometrial cancer who was noted to initially present on 12/18 for hysterectomy complicated by left ureteral thermal injury repaired with sutures, re-presented on 12/22 for abdominal/pelvic discomfort, CT urogram showing extrav from the left mid ureter; ureteral stent was placed but migrated distally and replaced with variable length stent on 12/26; pt eventually was discharged on IV antbiotics 12/28, has since been hospitalized multiple times for abdominal discomfort, N/V. CT scans on 12/30 and 01/[address] without hydronephrosis, small fluid collection that was deemed not drainable per IR. Pt then presented to [facility] on 01/18 with c/o gross hematuria, left ureteral stent was removed at bedside on 01/20 and pt discharged; pt then presented to ED on 01/21, CT at that time showed mild left hydroureteronephrosis to the mid ureter with inflammatory changes distally, no fluid collections adjacent to the ureter. Pt presented again 02/11 to [facility] with 5 days of increasing pain, also reports dysuria, frequency, urgency and urinary incontinence withstanding. ED work-up revealed fever, tachycardia, WBC 11.3, CT scan with mild dilation of left renal collecting system and ureter with heterogenous enhancement pattern of left kidney and very mild left perinephric fat stranding, no apparent renal calcifications, 4mm calcific density noted in the left distal ureter at the pelvc inlet level and left ureteral dilatation and some periureteral fat stranding. Urology consulted and recommended surgical management of left ureteral calcification, this morning pt OOR for same. Per chart review, appears pt has consumed ONS previously, has been ordered both Ensure Clear and Enlive during previous admits to [facility]. Malnutrition Assessment: Malnutrition Status: Insufficient data (Do suspect pts had compromised appetite/PO given numerous presentations to ED with abdominal complaints (N/V), recent surg hx noted, ? wts in [facility], noted 195# via bs a few weeks ago and ? 209# this date (likely close to baseline), pt currently in PACU) Estimated Daily Nutrient Needs: Energy (kcal): 5773-4314 kcal/day; Weight Used for Energy Requirements: [place] Protein (g): 66-79 gm protein/day; Weight Used for Protein Requirements: [place] (1.0-1.2 gm protein/kg) Fluid (ml/day): per MD; Method Used for Fluid Requirements: Nutrition Related Findings: +BS, presented with c/o N/V; No edema indicated; medications and labs reviewed Wounds: (lap sites; Sachin 21) Current Nutrition Therapies: ADULT DIET; Regular Anthropometric Measures: Height: 5' 9 (175.3 cm) (per chart) Admission Body Weight: (195# stated then 209# documented) Usual Body Weight: (~200# per chart, but up to ~209# previously documented with 195# documented (bedscale) most recently) [place] Body Weight: 145 lbs; % [place] Body Weight BMI: 30.9 Adjusted Body Weight: ; No Adjustment BMI Categories: Obese Class 1 (BMI 30.0-34.9) Nutrition Diagnosis: Predicted inadequate energy intake related to acute injury/trauma, altered GI function as evidencedby poor intake prior to admission (ongoing presentations to ED with c/o abdominal pain/nausea/vomiting) Nutrition Interventions: Food and/or Nutrient Delivery: Start Oral Diet (Likely initiate ONS of pt's preference) Nutrition Education/Counseling: No recommendation at this time Coordination of Nutrition Care: Continue to monitor while inpatient Goals: Pt tolerates & consistently consumes >50% of meals. Nutrition Monitoring and Evaluation: Food/Nutrient Intake Outcomes: Diet Advancement/Tolerance, Food and Nutrient Intake Physical Signs/Symptoms Outcomes: Biochemical Data, GI Status, Nausea or Vomiting, Skin, Weight Discharge Planning: Too soon to determine Contact: pager [phone] * Alen Savage MD - 02/12/2021 7:22 AM EDT UROLOGY PROGRESS NOTE PATIENT NAME: Addis Torres DATE OF : 2000 ADMISSION DATE: 02/11/2021 3:09 PM TODAY'S DATE: 02/12/2021 Subjective Last fever 5pm yesterday Pain controlled No nausea or emesis Voiding well Objective VS: BP (!) 141/88 Pulse 123 Temp 99.2 F (37.3 C) (Oral) Resp 18 Ht 5' 9 (1.753 m) Wt 209lb 9.6 oz (95.1 kg) LMP 11/09/2020 (Approximate) SpO2 95% BMI 30.95 kg/m Vitals: 02/12/21 0029 BP: (!) 141/88 Pulse: 123 Resp: 18 Temp: 99.2 F (37.3 C) SpO2: 95% I & O - 24hr: No intake or output data in the 24 hours ending 02/12/21 0723 Physical Exam: General: Neck: Resp: Abdomen: No acute distress Supple Normal effort, no respiratory distress Soft, non-tender, nondistended : Mild L CVA TTP Skin: Skin color, texture, turgor normal, no rashes or lesions Labs and Imaging Studies Labs: CBC: Recent Labs 02/11/21 1604 02/12/21 0425 WBC 11.3* 6.8 HGB 10.3* 8.4* HCT 31.4* 25.3* MCV 80.8 79.2 PLT 193 144 BMP: Recent Labs 02/11/21 1604 02/12/21 0425 NA 136 135 K 4.0 3.5 CL 104 107 CO2 20* 24 BUN 11 10 CREATININE 0.76 0.60 Magnesium: Lab Results Component Value Date MG 1.9 02/12/2021 Phosphate: Lab Results Component Value Date PHOS 4.3 01/03/2021 PT/INR: No results for input(s): PROTIME, INR in the last 72 hours. U/A: Lab Results Component Value Date LEUKOCYTESUR 500 02/11/2021 WBCUA >100 02/11/2021 RBCUA 6-10 02/11/2021 BACTERIA Few 02/11/2021 GLUCOSEU Normal 02/11/2021 Urine Culture: Component Value Date/Time LABURIN No growth (<1,000 CFU/ml). 01/13/2021 1504 Blood Culture: In process Imaging Studies: IMPRESSION: 1. Interval removal of left ureteral stent, with probable left distal ureteral calculus and mild left hydronephrosis. 2. Mildly heterogeneous enhancement pattern in the left kidney and some left perinephric fat stranding may be reactive and secondary to hydronephrosis versus nonspecific postinflammatory change or UTI. Assessment and Plan ASSESSMENT: 21 y.o. female with history of left ureteral injury on 12/18 during hysterectomy s/p L stent placement 12/22 and replacement 12/26, removal at bedside on 01/20 presented to the ED w/fevers, abd discomfort, nausea and vomiting PLAN: - NPO/IVF - OR 02/12 for surgical management of left ureteral calcification - Urine culture in process - Blood cultures in process - CT: mild dilation of left renal collecting system and ureter with heterogenous enhancement pattern of left kidney and very mild left perinephric fat stranding, no apparent renal calcifications; 4mmcalcific density noted in the left distal ureter at the pelvic inlet level and left ureteral dilatation and some periureteral fat stranding - Rocephin - Strain all urine - Flomax - Pain/nausea control PRN - Page immediately with fevers > 100.4 or SBP < 95 Alen Savage MD Urology PGY-1 02/12/2021 7:24 AM documented in this [facility] Work Phone: [phone]) [phone] Hospital Discharge instructions* Instructions* Alen Savage MD - 02/13/2021 Images from the original note were not included. You will follow up in office for stent management Ureteral Stent Placement: What to Expect at Home Your Recovery A ureteral (say [id number]) stent is a thin, hollow tube that is placed in the ureter to helpurine pass from the kidney into the bladder. Ureters are the tubes that connect the kidneys to the bladder. You may have a small amount of blood in your urine for 1 to 3 days after the procedure. While the stent is in place, you may have to urinate more often, feel a sudden need to urinate, or feel like you can't completely empty your bladder. You may feel some pain when you urinate or do strenuous activity. You also may notice a small amount of blood in your urine after strenuous activities. These side effects usually don't prevent people from doing their normal daily activities. You may have a thin string coming out of your urethra. Your urethra is the tube that carries urine from your bladder to outside your body. This string is attached to the stent. Try not to pull on thestring. It will be used to pull out the stent when you no longer need it. After the procedure, urine may flow better from your kidneys to your bladder. A ureteral stent may be left in place for several days or for as long as several months. Your doctor will take it out when you no longer need it. Or, in some cases, it may be taken out at home. This care sheet gives you a general idea about how long it will take for you to recover. But each person recovers at a different pace. Follow the steps below to get better as quickly as possible. How can you care for yourself at home? Activity Rest when you feel tired. Getting enough sleep will help you recover. Avoid strenuous activities, such as bicycle riding, jogging, weight lifting, or aerobic exercise, until your doctor says it is okay. Ask your doctor when you can drive again. Most people are able to return to work the day after the procedure. If your work requires intense activity, you may feel pain in your kidney area or get tired easily. If this happens, you may need todo less strenuous activities while the stent is in. Ask your doctor when it is okay for you to have sex. Diet You can eat your normal diet. If your stomach is upset, try bland, low-fat foods like plain rice, broiled chicken, toast, and yogurt. Drink plenty of fluids (unless your doctor tells you not to). Medicines Your doctor will tell you if and when you can restart your medicines. You will also get instructions about taking any new medicines. If you take aspirin or some other blood thinner, ask your doctor if and when to start taking it again. Make sure that you understand exactly what your doctor wants you to do. Be safe with medicines. Take pain medicines exactly as directed. ? If the doctor gave you a prescription medicine for pain, take it as prescribed. ? If you are not taking a prescription pain medicine, ask your doctor if you can take an rnbn-[id number] medicine. If you think your pain medicine is making you sick to your stomach: ? Take your medicine after meals (unless your doctor has told you not to). ? Ask your doctor for a different pain medicine. If your doctor prescribed antibiotics, take them as directed. Do not stop taking them just because you feel better. You need to take the full course of antibiotics. Follow-up care is a farah part of your treatment and safety. Be sure to make and go to all appointments, and call your doctor if you are having problems. It's also a good idea to know your test resultsand keep a list of the medicines you take. When should you call for help? Call 911 anytime you think you may need emergency care. For example, call if: You passed out (lost consciousness). You have severe trouble breathing. You have sudden chest pain and shortness of breath, or you cough up blood. You have severe belly pain. Call your doctor now or seek immediate medical care if: Part or all of the stent comes out of your urethra. You have pain that does not get better after you take pain medicine. You have symptoms of a urinary infection. For example: ? You have blood or pus in your urine. ? You have pain in your back just below your rib cage. This is called flank pain. ? You have a fever, chills, or body aches. ? It hurts to urinate. ? You have groin or belly pain. You cannot control when you urinate, or you leak urine. Watch closely for changes in your health, and be sure to contact your doctor if you have any problems. Where can you learn more? Go to [email or web address] and sign in to your [employer] account. Enter B869 in the Search Health Information box to learn more about Ureteral Stent Placement: What to Expect at Home. If you do not have an account, please click on the Sign Up Now link. Current as of: March 05, 2020 Content Version: 12.8 [employer]. Care instructions adapted under license by [employer]. If you have questions about a medical condition or this instruction, always ask your healthcare professional. [employer] disclaims any warranty or liability for your use of this information. documented in this [facility] Work Phone: [phone]) 308-920006-09-2021 [facility]05-21-2021 History of Present illness Narrative* Restricted notes were excluded * Kimberly aSm RN - 01/25/2021 5:13 PM EDT Discharge instructions discussed. Patient mom at bedside. meds in hand. 174 patient walked out with mom. Declined transport. * Eduardo Rubin MD - 01/25/2021 10:12 AM EDT Images from the original note were not included. Hospitalist Progress Note 01/25/2021 10:12 AM [phone]: Please page me for patient care issues. [phone]: Please page IMS night Hospitalist for any issues. Subjective: Admit Date: 01/21/2021 PCP: No primary care provider on file. Room#: 1558/1558A Interval History: Patient seen and examined, I was wearing N95 mask throughout the patient encounter No new event overnight patient complaining of pain in the left lower quadrant of the abdomen. No nausea vomiting. Complaining of loose bowel movement. DIET GENERAL; Dietary Nutrition Supplements: Standard High Calorie Oral Supplement Patient Vitals for the past 96 hrs (Last 3 readings): Weight 01/22/21 1215 195 lb (88.5 kg) Medications: sodium chloride Stopped (01/23/21 1229) mirtazapine 15 mg Oral Nightly tamsulosin 0.4 mg Oral Daily sodium chloride flush 5-40 mL Intravenous 2 times per day enoxaparin 40 mg Subcutaneous Daily LABS: CBC: Recent Labs 01/23/21 0200 01/24/21 0248 01/25/21 0249 WBC 7.3 7.5 7.9 RBC 4.68 4.79 5.02 HGB 12.2 12.7 13.1 HCT 37.2 38.9 40.6 MCV 79.6 81.2 80.7 RDW 14.5 15.3* 14.7* PLT 185 186 161 BMP: No results for input(s): NA, K, CL, CO2, BUN, CREATININE, GLUCOSE, CALCIUM, ANIONGAP in the last 72hours. LIVER PROFILE: No results for input(s): AST, ALT, BILITOT, ALKPHOS, LABALBU, PROT in the last 72 hours. PT/INR: No results for input(s): PROTIME, INR in the last 72 hours. CARDIAC ENZYMES: No results for input(s): TROPONINI in the last 72 hours. Procalcitonin: Lab Results Component Value Date PROCAL <0.10 01/23/2021 Objective: Vitals: BP 114/76 Pulse 70 Temp 99.3 F (37.4 C) (Temporal) Resp 17 Ht 5' 9 (1.753 m) Wt 195 lb (88.5 kg) SpO2 98% BMI 28.80 kg/m Pulse Ox: SpO2 Av.8 % Min: 97 % Max: 99 % Supplemental O2: General appearance: No apparent distress, HEENT: Eyes: No scleral icterus No pallor Oral: Tongue is semi-moist Cardiovascular: S1S2 heard, RRR Respiratory: Clear to auscultation bilaterally Abdomen: Soft, mild tenderness left lower quadrant on deep palpation, non- distended with normal bowel sounds. Musculoskeletal: No obvious deformities seen Skin: No visible rashes or lesions. Neurology- no focal neurology,Awake alert Extremity- no peripheral edema both lower extremities Assessment Active Problems: COVID-19 Severe malnutrition (HCC) Hydronephrosis with ureteral stricture, not elsewhere classified Resolved Problems: * No resolved hospital problems. * Abdominal pain history of left ureteral injury on 12/18 during hysterectomy s/p L stent placement 12/22 and replacement 12/26, removal at bedside on 01/20 anxiety Plan Seen by urology, renal Lasix scan was done. No evidence of hydronephrosis or obstruction urology recommended to leave the stent out that this time , follow with urology as outpatient psychiatry consult appreciated patient continues to have left abdominal pain consult gastroenterology On DVT/ GI prophylaxis Labs ordered for AM Patient was informed about all work up and treatment plan Discussed with nursing staff Advance Directive: Full Code Discharge planning: EDUARDO RUBIN MD,MD Division of Hospitalist Medicine Inpatient Medical Services PAGER: [phone] * Eduardo Rubin MD - 01/24/2021 10:05 AM EDT Images from the original note were not included. Hospitalist Progress Note 01/24/2021 10:05 AM [phone]: Please page me for patient care issues. [phone]: Please page IMS night Hospitalist for any issues. Subjective: Admit Date: 01/21/2021 PCP: No primary care provider on file. Room#: 1558/1557P Interval History: Patient seen and examined, I was wearing N95 mask throughout the patient encounter No new event overnight patient complaining of pain in the left lower quadrant of the abdomen. No nausea vomiting. Complaining of loose bowel movement. DIET GENERAL; Dietary Nutrition Supplements: Standard High Calorie Oral Supplement Patient Vitals for the past 96 hrs (Last 3 readings): Weight 01/22/21 1215 195 lb (88.5 kg) Medications: sodium chloride Stopped (01/23/21 1229) tamsulosin 0.4 mg Oral Daily sodium chloride flush 5-40 mL Intravenous 2 times per day enoxaparin 40 mg Subcutaneous Daily LABS: CBC: Recent Labs 01/22/21 0105 01/23/21 0200 01/24/21 0248 WBC 5.4 7.3 7.5 RBC 4.98 4.68 4.79 HGB 13.0 12.2 12.7 HCT 40.3 37.2 38.9 MCV 81.0 79.6 81.2 RDW 14.8* 14.5 15.3* PLT 187 185 186 BMP: Recent Labs 01/22/21 010 NA 142 K 3.6 CL 106 CO2 24 BUN 2* CREATININE 0.61 GLUCOSE 68* CALCIUM 9.6 ANIONGAP 12 LIVER PROFILE: Recent Labs 01/22/21 010 AST 26 ALT 17 BILITOT 0.4 ALKPHOS 41 LABALBU 4.4 PROT 7.5 PT/INR: No results for input(s): PROTIME, INR in the last 72 hours. CARDIAC ENZYMES: No results for input(s): TROPONINI in the last 72 hours. Procalcitonin: Lab Results Component Value Date PROCAL <0.10 01/23/2021 Objective: Vitals: BP 115/70 Pulse 68 Temp 97.5 F (36.4 C) (Temporal) Resp 16 Ht 5' 9 (1.753 m) Wt 195 lb (88.5 kg) SpO2 96% BMI 28.80 kg/m Pulse Ox: SpO2 Av.6 % Min: 96 % Max: 98 % Supplemental O2: General appearance: No apparent distress, HEENT: Eyes: No scleral icterus No pallor Oral: Tongue is semi-moist Cardiovascular: S1S2 heard, RRR Respiratory: Clear to auscultation bilaterally Abdomen: Soft, mild tenderness left lower quadrant on deep palpation, non- distended with normal bowel sounds. Musculoskeletal: No obvious deformities seen Skin: No visible rashes or lesions. Neurology- no focal neurology,Awake alert Extremity- no peripheral edema both lower extremities Assessment Active Problems: COVID-19 Severe malnutrition (HCC) Hydronephrosis with ureteral stricture, not elsewhere classified Resolved Problems: * No resolved hospital problems. * Abdominal pain in setting of history of left ureteral injury on 12/18 during hysterectomy s/p L stent placement 12/22 and replacement 12/26, removal at bedside on 01/20 presented to the ED w/ abd discomfort, nausea and vomiting Plan Seen by urology, renal Lasix scan was done. No evidence of hydronephrosis or obstruction neurology recommended to leave the stent out that this time + follow with urology as outpatient psychiatry consult pending On DVT/ GI prophylaxis Labs ordered for AM Patient was informed about all work up and treatment plan Discussed with nursing staff Advance Directive: Full Code Discharge planning: EDUARDO RUBIN MD,MD Division of Hospitalist Medicine Inpatient Medical Services PAGER: [phone] * Terry Wilkerson MD - 01/23/2021 4:34 PM EDT Images from the original note were not included. Hospitalist Progress Note 01/23/2021 4:34 PM Subjective: Admit Date: 01/21/2021 PCP: No primary care provider on file. Interval History: resting in bed, appears comfortable. On her cell phone, non- labored breathing, not diaphoretic, calm. Endorsing 10/10 pain, severe anxiety. 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 No overnight issues. DIET GENERAL; Dietary Nutrition Supplements: Standard High Calorie Oral Supplement Patient Vitals for the past 96 hrs (Last 3 readings): Weight 01/22/21 1215 195 lb (88.5 kg) Medications: sodium chloride Stopped (01/23/21 1229) tamsulosin 0.4 mg Oral Daily sodium chloride flush 5-40 mL Intravenous 2 times per day enoxaparin 40 mg Subcutaneous Daily Recent Labs 01/22/21 0105 01/23/21 0200 WBC 5.4 7.3 HGB 13.0 12.2 PLT 187 185 Recent Labs 01/22/21104 NA 142 K 3.6 CL 106 CO2 24 BUN 2* CREATININE 0.61 GLUCOSE 68* Recent Labs 01/22/21104 AST 26 ALT 17 BILITOT 0.4 ALKPHOS 41 No results found for: TRIG, HDL, LDLCALC, CHOL No results for input(s): INR in the last 72 hours. No results for input(s): CKTOTAL, CKMB, TROPONINI in the last 72 hours. Objective: Vitals: BP 126/75 Pulse 106 Temp 97.7 F (36.5 C) (Temporal) Resp 18 Ht 5' 9 (1.753 m) Wt195 lb (88.5 kg) SpO2 97% BMI 28.80 kg/m Pulse Ox: SpO2 Av.1 % Min: 95 % Max: 99 % Supplemental O2: PHYSICAL EXAM: GENERAL: Patient is a well-developed, well-nourished female in no acute distress, alert and oriented x3, appropriate and pleasant conversation. HEAD: Normocephalic, atraumatic. EYES: Pupils equal, round and reactive to light and accommodation, extraocular movements intact. ENT: Moist mucous membranes. No erythema is noted. NECK: Supple. No masses. No lymphadenopathy. CARDIOVASCULAR: Regular rate and rhythm, s1,2 no murmur PULMONARY: Lungs are clear to auscultation bilaterally. ABDOMEN: Soft, nontender, nondistended. Positive bowel sounds. MUSCULOSKELETAL: Strength 5/5 bilaterally in all extremities. Pulses 2+ NEUROLOGIC: Cranial nerves II through XII grossly intact. No focal deficits are noted. DATA: CBC: Recent Labs 01/22/2110401/23/21 0200 WBC 5.4 7.3 RBC 4.98 4.68 HGB 13.0 12.2 HCT 40.3 37.2 MCV 81.0 79.6 RDW 14.8* 14.5 PLT 187 185 BMP: Recent Labs 01/22/21104 NA 142 K 3.6 CL 106 CO2 24 BUN 2* CREATININE 0.61 GLUCOSE 68* CALCIUM 9.6 ANIONGAP 12 LIVER PROFILE: Recent Labs 01/22/21104 AST 26 ALT 17 BILITOT 0.4 ALKPHOS 41 LABALBU 4.4 PROT 7.5 PT/INR: No results for input(s): PROTIME, INR in the last 72 hours. CARDIAC ENZYMES: No results for input(s): TROPONINI in the last 72 hours. Procalcitonin: Lab Results Component Value Date PROCAL <0.10 01/23/2021 Urine Culture: Results for orders placed or performed during the hospital encounter of 01/13/21 Culture, Urine Specimen: Urine URINE Result Value Ref Range Urine Culture, Routine No growth (<1,000 CFU/ml). I reviewed: [x] laboratory results [x] radiographic results At the time of today's encounter. Pt was advised of the results. Assessment Active Problems: COVID-19 Severe malnutrition (HCC) Hydronephrosis with ureteral stricture, not elsewhere classified Resolved Problems: * No resolved hospital problems. * Abdominal pain in setting of history of left ureteral injury on 12/18 during hysterectomy s/p L stent placement 12/22 and replacement 12/26, removal at bedside on 01/20 presented to the ED w/ abd discomfort, nausea and vomiting Plan Admit to medicine IVF bolused; IV abx--DCed psych eval for severe anxiety Urology consult-->renal lasix scan Billing Typist/onc eval and recs appreciated Analgesia PRN See orders, continue POC Advance Directive: Full Code PPE was worn for the duration of the encounter including but not limited to a N95. Terry Wilkerson MD, [facility] Hospitalist * Yamile Adkins, [facility] - 01/22/2021 3:54 PM EDT [facility] MEDICATION RECONCILIATION Date: 01/22/21 Room:[facility] Patient Name: Addsi Torres Allergies: Morphine and Promethazine-phenylephrine Age: 20 y.o. Sex: female Note: New information has been obtained regarding the patient s medications. The medication reconciliation has been updated to reflect this. Please consider making these changes/additions if appropriate: Recommendations: 1. Home medications to restart if there is not a current contraindication: a. Reglan 10mg q6h prn (if order for nausea, will need to specify 1st vs 2nd line d/t JCAHO requirements, as patient already ordered Zofran prn) b. Pyridium 200mg TID prn Please page/call with questions. Date: 01/22/21 Time: 3:54 PM Name: Yamile Adkins RPH, PharmD Pager: [phone] * Rocío Thompson, , RD, LD - 01/22/2021 3:17 PM EDT Comprehensive Nutrition Assessment Type and Reason for Visit: Initial, Positive Nutrition Screen Nutrition Recommendations/Plan: Pt meets criteria for severe malnutrition - see below 1. Continue general diet - encourage and monitor efficacy of PO intake. 2. Per MNT, will initiate Ensure Enlive (provides 350 kcals, 20g protein per serving) 3. Please record accurate % consumed of meals and ONS in flowsheet. 4. Monitor skin, weights, labs, and I&Os. RD to follow up weekly. Nutrition Assessment: Pt presented on 01/[address] [place] [address] at that time showed mild left hydroureteronephrosis to the mid ureter with inflammatory changes distally, no fluid collections adjacent tothe ureter. Pt with previous hospitalizations d/t abdominal pain, N/V. A ureteral stend was placed 12/26 d/t showing extrav from the left mid ureter. Per urology, plan for renal lasix scan to assess for differential function and drainout of the left kidney to determine plan moving forward. RD consulted for MST 3. Pt endorses poor appetite and weight for about a month now- reports 20# weight loss. Bed scale consistent with weight loss, pt reports UBW to be 216#. Pt reports only being able to tolerate a PB sandwich and anything else she ate would come back up. Pt yet to have a meal this admission- encouraged pt to order foods she thinks she may tolerate. Pt agreeable to ONS- stated she used todrink them at home. Malnutrition Assessment: Malnutrition Status: Severe malnutrition Context: Acute Illness Findings of the 6 clinical characteristics of malnutrition: Energy Intake: 7 - 50% or less of estimated energy requirements for 5 or more days Weight Loss: 7 - Greater than 5% over 1 month Body Fat Loss: Unable to assess Muscle Mass Loss: Unable to assess Fluid Accumulation: No significant fluid accumulation Supervisor Parach[employer] Strength: Not Performed Estimated Daily Nutrient Needs: Energy (kcal): 4433-5782 (25-30 kcals/kg); Weight Used for Energy Requirements: [place] Protein (g): 66-79g (1.0-1.2g/kg); Weight Used for Protein Requirements: [place] Fluid (ml/day): Per MD; Method Used for Fluid Requirements: 1 ml/kcal Nutrition Related Findings: Sachin- 21, +BS, N/V, no edema, last BM 01/21 BMP: Recent Labs 01/22/21 010 NA 142 K 3.6 CL 106 CO2 24 BUN 2* CREATININE 0.61 GLUCOSE 68* CALCIUM 9.6 HEPATIC: Recent Labs 01/22/21 010 AST 26 ALT 17 BILITOT 0.4 ALKPHOS 41 Wounds: Surgical Incision Current Nutrition Therapies: DIET GENERAL; Anthropometric Measures: Height: 5' 9 (175.3 cm) Current Body Weight: 195 lb (88.5 kg) Admission Body Weight: 195 lb (88.5 kg) (Bed scale) Usual Body Weight: 216 lb (98 kg) [place] Body Weight: 145 lbs; % [place] Body Weight 134.5 % BMI: 28.8 Adjusted Body Weight: ; No Adjustment Adjusted BMI: BMI Categories: Overweight (BMI 25.0-29.9) Nutrition Diagnosis: Severe malnutrition related to inadequate protein-energy intake as evidenced by nausea, vomiting, weight loss greater than or equal to 5% in 1 month, intake 26-50% Nutrition Interventions: Food and/or Nutrient Delivery: Continue Current Diet, Start Oral Nutrition Supplement Nutrition Education/Counseling: No recommendation at this time Coordination of Nutrition Care: Continue to monitor while inpatient Goals: Pt will consume >50% of meals, ONS Nutrition Monitoring and Evaluation: Behavioral-Environmental Outcomes: None Identified Food/Nutrient Intake Outcomes: Food and Nutrient Intake, Supplement Intake Physical Signs/Symptoms Outcomes: Biochemical Data, Nutrition Focused Physical Findings, Skin, Weight Discharge Planning: Too soon to determine Contact: *[phone] * Kimberly Sam RN - 01/22/2021 2:[address] Wilkerson, patient complaining of 10/10 pain, no meds due at this time. documented in this encounterSUMMA Work Phone: 1(637) 951-200105-21-2021 Hospital course Narrative* Eduardo Rubin MD - 01/25/2021 5:05 PM EDT Discharge Summary Addis Torres : 2000 ADMIT DATE: 01/21/2021 DISCHARGE DATE: 01/25/2021 PRIMARY CARE PHYSICIAN: No primary care provider on file. VISIT STATUS: Admission CODE STATUS: Full Code DISCHARGE DIAGNOSES: Active Problems: COVID-19 Severe malnutrition (HCC) Hydronephrosis with ureteral stricture, not elsewhere classified Resolved Problems: * No resolved hospital problems. * Abdominal pain history of left ureteral injury on 12/18 during hysterectomy s/p L stent placement 12/22 and replacement 12/26, removal at bedside on 01/20 anxiety HOSPITAL COURSE: The patient is a 20 y.o. female with significant past medical history of endometrial cancer (s/p hysterectomy) who presents with abdominal pain. Patient initially presented on 12/18 for hysterectomy complicated by left ureteral thermal injury repaired with sutures and ureteral stent placed on 12/26. This was removed 01/20 at [facility]. Urology at [facility] evaluated her and recommend reviewed renal lasix scan and recommended outpatient follow up. seen GYNconsult She endorses having abdominal pain since the stent was placed on 12/26. It is in the left suprapubicregion and is worse if she is in the position and better if she stretches out. It is intermittent in nature seen by psych consult. GI recommended rpt CT abd, pt and pt's joeye refused. Pt wantsto leave today and wants to be discharged. Pt wants to get further work up including GI ,urology followup and CMP repeat as out pt the patient tolerateing diet . No loose BM. Will dc pt home and follow up with her primary GI and PCP and urology SIGNIFICANT DIAGNOSTIC STUDIES: Renal scan CONSULTANTS: Gi,urology ,psychiatry RECOMMENDED NEXT STEPS: F/U with GI,urology,pcp DISCHARGE MEDICATIONS: Addis Torres Home Medication Instructions DIOGENES:[id number] Printed on:01/25/21 0425 Medication Information ibuprofen (ADVIL;MOTRIN) 600 MG tablet Take 1 tablet by mouth every 6 hours as needed for Pain metoclopramide (REGLAN) 10 MG tablet Take 10 mg by mouth 4 times daily as needed mirtazapine (REMERON) 15 MG tablet Take 1 tablet by mouth nightly ondansetron (ZOFRAN-ODT) [address] 1 tablet under the tongue 3 times daily as needed for Nausea or Vomiting pantoprazole (PROTONIX) 40 MG tablet Take 1 tablet by mouth every morning (before breakfast) phenazopyridine (PYRIDIUM) 200 MG tablet Take 200 mg by mouth 3 times daily as needed for Pain tamsulosin (FLOMAX) 0.4 MG capsule Take 1 capsule by mouth daily DIET: DIET GENERAL; Dietary Nutrition Supplements: Standard High Calorie Oral Supplement ACTIVITY: No restriction. up with assist COMPLEXITY OF FOLLOW UP: [] Moderate Complexity: follow up within 7-14 calendar days (78785) [] Severe Complexity: follow up within 7 calendar days (94592) FOLLOW UP TESTING, PENDING RESULTS OR REFERRALS AT TRANSITIONAL CARE VISIT: [] Yes [] No PENDING STUDIES: No DISPOSITION: Home FACILITY/HOME CARE AGENCY NAME: Follow up with pcp in 1-2 days Kodak Ferro MD [address] [place], [place] [id number] Schedule an appointment as soon as possible for a visit on INSTRUCTIONS TO MA/SW: Please call patient on day after discharge (must document patient contacted within 2 business days of discharge). FOLLOW UP QUESTIONS FOR MA/SW: 1. Did you get medications filled and taking them as instructed from discharge? 2. Are you following your discharge instructions from your hospital stay? 3. Please confirm patient is scheduled for a follow up appointment within the above time frame. DISCHARGE TIME: > 30 minutes SIGNED: EDUARDO RUBIN MD 01/25/2021, 5:05 PM documented in this encounterSUMMA Work Phone: 1(134) 222-998405-21-2021 Hospital Discharge instructions* Discharge Instr - Activity* Eduardo Rbuin MD - 01/25/2021 1:31 PM EDT Up as tolerated * Discharge Instr - Diet* Eduardo Rubin MD - 01/25/2021 1:31 PM EDT Good nutrition is important when healing from an illness, injury, or surgery. Follow any nutrition recommendations given to you during your hospital stay. If you were given an oral nutrition supplement while in the hospital, continue to take this supplement at home. You can take it with meals, in-between meals, and/or before bedtime. These supplements can be purchased at most local grocery stores, pharmacies, and chain super-stores. If you have any questions about your diet or nutrition, call the hospital and ask for the dietitian. Regular diet documented in this encounterSUMMA Work Phone: 1(585) 465-338105-10-2021 Hospital Discharge instructions* Instructions* Donavan Roe MD - 01/14/2021 See instructions provided in office documented in this encounterSUMMA Work Phone: 1(250) 405-456905-10-2021 History of Present illness Narrative* Roxann Wilson MD - 01/14/2021 10:02 AM EDT Notified by radiology that there is no fluid for drainage. Patient notified that we will no longer be pursuing this intervention. I offered a CLP consult to the patient given her complicated postop course to ensure she has appropriate support. She declined meeting with anyone at this time. Will plan for discharge home today with follow up in with Dr. Escobedo. Dr. Escobedo updated and agreeable to plan of care. * Donavan Roe MD - 01/14/2021 6:15 AM EDT Images from the original note were not included. 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 female admitted for abdominal pain, pelvic fluid collection Overnight, had persistent nausea and vomiting unresolved with multiple doses of zofran. Also requesting IV pain medication for abdominal pain. RN reports that she has not witnessed any vomiting, and there is minimal fluid in the emesis bag. Patient was evaluated at the bedside this morning. Pt resting comfortably and awoken from sleep. States still with continued nausea and abdominal pain. Statesabdominal pain is diffuse, with no focal area of pain. Denies constipation, with last bowel movement yesterday and no urinary symptoms. Vitals: Vitals: 01/13/21 0435 01/13/21 1710 01/13/21 2148 01/14/21 0512 BP: 139/85 138/83 129/76 (!) 157/99 Pulse: 91 91 85 90 Resp: 18 18 16 16 Temp: 98.5 F (36.9 C) 98.3 F (36.8 C) 99.3 F (37.4 C) 97.8 F (36.6 C) TempSrc: Temporal Temporal Temporal Oral SpO2: 98% 98% 97% 100% Weight: Height: Intake/Output: Last Shift: @[id number]@ Current Shift: I/O this shift: In: - Out: 250 [Emesis/NG output:250] Physical Exam: Gen: NAD, alert and cooperative HEENT: Normocephalic, atraumatic, EOMI, MMM Resp: CTABL, no WRR Card: RRR, no murmur Abd: Soft, non-distended, non-tender. No rebound tenderness, guarding, or rigidity. normoactive bowel sounds on auscultation Incisions: well healing Ext: No LE edema, no calf tenderness or swelling Medications: Current Facility-Administered Medications Medication Dose Route Frequency Provider Last Rate Last Admin famotidine (PEPCID) tablet 20 mg 20 mg Oral Daily Regi Treviño MD 20 mg at 01/14/21 0327 prochlorperazine (COMPAZINE) injection 10 mg 10 mg Intravenous Q6H PRN Donavan Roe MD tamsulosin (FLOMAX) capsule 0.4 mg 0.4 mg Oral Daily Donavan Roe MD 0.4 mg at 01/13/21 0811 sodium chloride flush 0.9 % injection 10 mL 10 mL Intravenous 2 times per day Donavan Roe MD sodium chloride flush 0.9 % injection 10 mL 10 mL Intravenous PRN Donavan Roe MD 0.9 % sodium chloride infusion 25 mL Intravenous PRN Donavan Roe MD [Held by provider] enoxaparin (LOVENOX) injection 40 mg 40 mg Subcutaneous Daily Donavan Roe MD docusate sodium (COLACE) capsule 100 mg 100 mg Oral BID PRN Donavan Roe MD acetaminophen (TYLENOL) tablet 650 mg 650 mg Oral Q4H PRN Donavan Roe MD 650 mg at 01/14/21326 ibuprofen (ADVIL;MOTRIN) tablet 600 mg 600 mg Oral Q6H PRN Donavan Roe MD 600 mg at 01/13/212015 oxyCODONE (ROXICODONE) immediate release tablet 5 mg 5 mg Oral Q6H PRN Donavan Roe MD Or oxyCODONE (ROXICODONE) immediate release tablet 10 mg 10 mg Oral Q6H PRN Donavan Roe MD 10 mg at 01/14/21 033 ondansetron (ZOFRAN) injection 4 mg 4 mg Intravenous Q6H PRN Davion Hernandez MD 4 mg at 01/13/21 232 Or promethazine (PHENERGAN) tablet 12.5 mg 12.5 mg Oral Q6H PRN Davion Hernandez MD 0.9 % sodium chloride infusion Intravenous Continuous Jen Canas DO 100 mL/hr at 01/13/21 2339 New Bag at 01/13/21 2339 Diagnostics: No results found. Labs: Admission on 01/13/2021 Component Date Value Ref Range Status WBC 01/13/2021 6.8 3.6 - 10.7 10*3/uL Final RBC 01/13/2021 4.26 3.80 - 5.20 10*6/uL Final Hemoglobin 01/13/2021 11.4* 11.7 - 16.0 g/dL Final Hematocrit 01/13/2021 33.9* 35.0 - 47.0 % Final MCV 01/13/2021 79.6 79.0 - 98.0 fL Final MCH 01/13/2021 26.7 26.0 - 34.0 pg Final MCHC 01/13/2021 33.6 32.0 - 36.0 % Final RDW 01/13/2021 15.3* 11.5 - 14.5 % Final Platelets 01/13/2021 254 140 - 440 10*3/uL Final MPV 01/13/2021 7.5 7.4 - 10.4 fL Final Sodium 01/13/2021 139 135 - 145 mmol/L Final Potassium 01/13/2021 3.8 3.5 - 5.1 mmol/L Final Chloride 01/13/2021 107 98 - 107 mmol/L Final CO2 01/13/2021 25 22 - 30 mmol/L Final Anion Gap 01/13/2021 7 3 - 13 mmol/L Final Glucose 01/13/2021 87 70 - 100 mg/dL Final BUN 01/13/2021 9 7 - 20 mg/dL Final CREATININE 01/13/2021 0.54 0.52 - 1.25 mg/dL Final eGFR 01/13/2021 >90.0 >60 mL/min Final EGFR IF NonAfrican [place] 01/13/2021 >90.0 >60 mL/min Final Comment: KDIGO guidelines provide the following GFR categories: Stage GFR(ml/min/1.73 m2) Terms G1 >=90 Normal or high G2 60-89 Mildly decreased* G3a 45-59 Mildly to moderately decreased G3b 30-44 Moderately to severely decreased G4 15-29 Severely decreased G5 <15 Kidney failure *Relative to young adult level. In the absence of evidence of kidney damage, neither GFR category G1 nor G2 fulfill the criteria for CKD. The CKD-EPI equation is validated in individuals 18 years of age and older. Currently the best equation for estimating glomerular filtration rate (GFR) from serum creatinine in children is the Bedside Boyer equation. It is less accurate in patients with extremes of muscle mass, restriction of dietary protein, ingestion of creatine, extra-renal metabolism of creatinine, or treatment with medications that affect renal tubular creatinine secretion. Calcium 01/13/2021 8.7 8.4 - 10.4 mg/dL Final Albumin,Serum 01/13/2021 3.9 3.5 - 5.0 g/dL Final Total Protein 01/13/2021 6.7 6.3 - 8.2 g/dL Final Total Bilirubin 01/13/2021 0.3 0.2 - 1.3 mg/dL Final Alkaline Phosphatase 01/13/2021 38 38 - 126 U/L Final ALT 01/13/2021 17 0 - 34 U/L Final Comment: The ALT test is performed by an updated assay method. Please note that the reference intervals have been changed and are now sex specific. AST 01/13/2021 21 15 - 46 U/L Final Glucose, Ur 01/13/2021 Normal Normal (<70) mg/dL Final . Total Protein, Urine 01/13/2021 Negative Negative mg/dL Final . Bilirubin Urine 01/13/2021 Negative Negative mg/dL Final . Urobilinogen, Urine 01/13/2021 Normal Normal (0-1) mg/dL Final . pH, Urine 01/13/2021 6.0 5.0 - 8.0 NA Final . Specific [place], Urine 01/13/2021 1.023 1.005 - 1.030 NA Final . Occult Blood,Urine 01/13/2021 0.03* Negative mg/dL Final . Ketones, Urine 01/13/2021 Negative Negative mg/dL Final . Nitrite, Urine 01/13/2021 Negative Negative NA Final . LEUKOCYTES, UA 01/13/2021 75* Negative Nesha/uL Final . Appearance 01/13/2021 Clear Clear NA Final . Color, Urine 01/13/2021 Light-Yellow Lt. Yellow NA Final . RBC, UA 01/13/2021 3-5* 0 - 2 /[HPF] Final . WBC, UA 01/13/2021 6-10* 0 - 5 /[HPF] Final . Squam Epithel, UA 01/13/2021 0-2 3 - 5 /[HPF] Final . Bacteria, UA 01/13/2021 Negative Negative /[HPF] Final . Mucous Threads 01/13/2021 Few Negative /[LPF] Final . Protime 01/13/2021 11.5 9.0 - 12.0 s Final . INR 01/13/2021 1.1 0.9 - 1.1 NA Final Comment: Recommended Anticoagulant Therapy: SEE BELOW ----- INR of 2.0 - 3.0 : - Prophylaxis of Venous Thrombosis (high-risk surgery) - Treatment of Venous Thrombosis - Treatment of Pulmonary Embolism (Includes tissue heart valves, Acute Myocardial Infarction to prevent systemic embolism, Valvular Heart Disease, and Atrial Fibrillation) ----- INR of 2.5 - 3.5 : - Mechanical Prosthetic Valves (high risk) - If oral anticoagulant therapy is used to prevent Myocardial Infarction Assessment/Plan: Addis Torres 20 y.o. female admitted for Abdominal pain, Nausea, Vomiting Abdominal Pain, Nausea - s/p [id number] for endometrial cancer 12/18, complicated by ureteral injury with L ureteral stent placed 12/22 and replaced 12/26 - Presented to [facility] for 1 weeks of worsening diffuse abdominal pain and nausea - pt having persistent abdominal pain, nausea and vomiting yesterday and overnight - VSS, afebrile, benign abdominal exam this am - Possibly 2/2 acute gastritis from spoiled mac & cheese, but lower concern for SBO or ileus, as is passing gas and had bowel movement yesterday - Add PRN Compazine for nausea, as pt states she cannot take phenergan - additional dose of toradol this am, and continue supportive management Pelvic Fluid Collection - CT Abd pelvis showed 3.7x4.7 cm right adnexal fluid collection - plan for CT-Guided drainage today with IR - send cultures, and creatinine from fluid Further plan pending discussion with attending. Active Problems: Abdominal pain Resolved Problems: * No resolved hospital problems. * Donavan Roe MD 01/14/2021, 6:15 AM Associated attestation - Madan Escobedo MD - 01/14/2021 8:26 AM EDT Patient resting comfortably with no abdominal pain noted. We'll await possible drainage by radiology today of the pelvic fluid collection. * Regi Treviño MD - 01/14/2021 2:44 AM EDT Notified by RN around 2323 that patient was too nauseous to take oxycodone and was requesting dilaudid. At that time, vital signs were stable. Ordered zofran for nausea and patient declined oxycodone. Paged at [phone] again regarding nausea and patient wanting dilaudid. Patient seen and examined at this time. Patient is reporting generalized abdominal and chest pain. She also endorses intractable nausea and vomiting. I asked what I could give her to help her symptoms and she states that the only thing that works is dilaudid. Of note, patient has not attempted to take oxycodone due to nausea. Vital signs reviewed and wnl. Abdominal exam benign, diffusely mildly tender to palpation, no focalpoint of tenderness, no distension, no rebound or guarding. Bowel sounds normal. Very low suspicionfor acute intra-abdominal process. Discussed with patient that we will avoid dilaudid and instead give extra dose of zofran, give pepcid for GERD, and encouraged patient to take oxycodone, tylenol, and ibuprofen for pain. Will continue to monitor closely. * Kylah Redmond RN - 01/13/2021 12:30 PM EDT Pt still rating pain 10/[address] Hernandez paged to inform. No new orders at this time. * Kylah Redmond RN - 01/13/2021 8:20 AM EDT Pt pain 10/10 and refusing to take oxycodone bc she states it makes her sick. Pt also nauseous and itchy. Dr. Hernandez paged to notify. 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 Admit Date: 01/13/2021 Attending Provider: Madan Escobedo MD Principal Diagnosis: Abdominal Pain Other Diagnosis: Abdominal pain [R10.9] Patient Active Problem List Diagnosis Post-op pain Left ureteral injury Post-operative pain Obesity (BMI 30-39.9) Endometrial cancer (HCC) Nausea & vomiting Abdominal pain Pertinent Findings & Procedures: Addis Torres is a 20 y.o. female admitted as a transfer from [facility] for abdominal pain, nausea, and right adnexal fluid collection noted on CT. Pt was treated symptomatically her for pain and nausea, which improved during her stay. Radiology reevaluated her imaging, and determined that there was not enough fluid present to drain. Therefore, with improvement in her clinical status, she was deemed stable, and discharged home 01/14/21. Follow up in 6 weeks is scheduled. Discharge instructions reviewed and questions answered. Course of patient: normal Discharge to: Home Recommendations on Discharge: Medications: Addis Torres Home Medication Instructions DIOGENES:[id number] Printed on:01/14/21 0959 Medication Information ibuprofen (ADVIL;MOTRIN) 600 MG tablet Take 1 tablet by mouth every 6 hours as needed for Pain ondansetron (ZOFRAN-ODT) [address] 1 tablet under the tongue 3 times daily as needed for Nausea or Vomiting prochlorperazine (COMPAZINE) 5 MG tablet Take 1 tablet by mouth every 6 hours as needed for Nausea (if unresolved with zofran) tamsulosin (FLOMAX) 0.4 MG capsule Take 1 capsule by mouth daily Activity: activity as tolerated and no driving while on analgesics Diet: regular diet Follow up: on 02/[address] Escobedo Condition on discharge: good and stable Discharge Date: 01/14/21 Comments: Home care, Follow-up care, restrictions reviewed. Donavan Roe MD 01/14/2021, 9:59 AM [facility] Work Phone: [phone]) 552-222604-29-2021 Hospital Discharge instructions* Instructions* Rekha Rowland DO - 01/03/2021 documented in this encounterSUM[facility] Work Phone: 1(412) 482-594404-29-2021 History of Present illness Narrative* Ruth Ann Richards MD - 01/03/2021 12:43 PM EDT Images from the original note were not included. [facility] - Infectious Diseases Attending Progress Note Subjective: Following for ?antibiotic side effects. Pt reports she has been unable to keep anything down. On further questioning, pt has tolerated somecrackers and some Ensure. Pt unsure if changing to cipro has helped. She vomited twice overnight. Pt wants to remain on oral cipro. Per verbal report, pt wants the PICC out. Objective: Vitals: Patient Vitals for the past 24 hrs: BP Temp Temp src Pulse Resp SpO2 Height 01/03/21 0728 (!) 141/88 98.8 F (37.1 C) Temporal 117 17 98 % 01/03/21 0241 (!) 157/105 98.7 F (37.1 C) Temporal 108 18 97 % 01/02/21 2317 135/89 98.2 F (36.8 C) Temporal 84 18 98 % 01/02/21 1256 5' 9 (1.753 m) Physical Exam Vitals signs and nursing note reviewed. Constitutional: General: She is not in acute distress. Appearance: Normal appearance. She is not ill-appearing, toxic-appearing or diaphoretic. HENT: Head: Normocephalic and atraumatic. Right Ear: External ear normal. Left Ear: External ear normal. Nose: Nose normal. No congestion or rhinorrhea. Eyes: General: No scleral icterus. Right eye: No discharge. Left eye: No discharge. Conjunctiva/sclera: Conjunctivae normal. Musculoskeletal: Right lower leg: No edema. Left lower leg: No edema. Skin: Coloration: Skin is not jaundiced. Findings: No bruising, erythema or rash. Neurological: Mental Status: She is alert and oriented to person, place, and time. Mental status is at baseline. Psychiatric: Mood and Affect: Mood normal. Behavior: Behavior normal. Thought Content: Thought content normal. Judgment: Judgment normal. Labs: Component Value Date/Time NA 137 01/03/2021 0619 K 3.7 01/03/2021 0619 CL 101 01/03/2021 0619 CO2 21 (L) 01/03/2021 06 BUN 11 01/03/2021 06 CREATININE 0.71 01/03/2021 06 GLUCOSE 91 01/03/2021 06 CALCIUM 9.9 01/03/2021 0619 PROT 8.0 12/30/2020 1640 LABALBU 4.3 12/30/2020 1640 BILITOT 0.3 12/30/2020 1640 ALKPHOS 54 12/30/2020 1640 AST 28 12/30/2020 1640 ALT 21 12/30/2020 1640 PROCAL <0.10 12/21/20202033 Component Value Date/Time WBC 11.4 (H) 01/03/2021 024 HGB 12.8 01/03/2021 0248 HCT 38.3 01/03/2021 0248 PLT 345 01/03/2021 0248 GRANULOCYTES 68.2 01/03/2021 0248 LYMPHOPCT 21.7 01/03/2021 0248 MONOPCT 5.7 01/03/2021 0248 LABEOS 3.2 01/03/2021 0248 BASOPCT 1.2 01/03/2021 0248 NEUTROABS 7.8 (H) 01/03/2021 0248 Micro: 12/21 BC 09/07 negative 12/22 BC 09/07 negative 12/22 urine 10-50K ESBL E coli Lines: PICC Radiography/Echo/Other: 12/31 CT a/p 1. Decreased amount of fluid and stranding in the retroperitoneum with a left ureteral stent remains in place 2. No new abnormality. 12/30 CXR 1. Left PICC catheter placement and position, as reported. 2. Otherwise, unremarkable. 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 Pt tolerated prior to discharge. 5) suspect there is a component of anxiety leading to some of pt's symptoms, like her chest discomfort with use of PICC 6) tachycardia; on review of EMR, pt was tachycardic on discharge. lower suspicion uncontrolled infection contributing at this point. Pt's pain appears to be controlled. Pt afebrile with normal WBC. Plan: - will continue oral cipro - pt to get zofran prior to AM cipro dose - if pt tolerates po cipro, can d/c PICC - d/w RN - following Ruth Ann Richards MD * Jen Canas DO - 01/03/2021 6:00 AM EDT Images from the original note were not included. 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 female admitted for shortness of breath Patient seen and examined. She reports two episodes of emesis since yesterday. She was able to keepdown PO Cipro around 9pm but then through the night vomited twice. The first was preceded by belching and the second was while chewing a saltine cracker. She has been keeping down water and some Ensure. She denies Fever/Chills, Chest Pain, SOB, N/V. Vitals: Vitals: 01/02/21 1149 01/02/21 1256 01/02/21 2317 01/03/21 0241 BP: (!) 154/107 135/89 (!) 157/105 Pulse: 100 84 108 Resp: 22 18 18 Temp: 98.5 F (36.9 C) 98.2 F (36.8 C) 98.7 F (37.1 C) TempSrc: Temporal Temporal Temporal SpO2: 93% 98% 97% Weight: Height: 5' 9 (1.753 m) Intake/Output: Intake/Output Summary (Last 24 hours) at 01/03/2021 0611 Last data filed at 01/03/2021 0534 Gross per 24 hour Intake 400 ml Output 300 ml Net 100 ml Physical Exam: Gen: NAD, alert and cooperative HEENT: Normocephalic, atraumatic, EOMI, MMM Abd: soft, NT/ND, no rebound, no guarding. Present BS Incisions: C/D/I Ext: No LE edema, no calf tenderness or swelling Diagnostics: Ct Abdomen Pelvis W Wo Contrast Result Date: 12/31/2020 Patient Name: ADDIS TORRES Computed Tomography ACCESSION EXAM DATE/TIME PROCEDURE ORDERING PROVIDER [id number] 12/31/2020 02:[address] Abdomen/Pelvis w/ FOSTER, FRANCO GUEVARA I + w/o Contrast CPT code 61599 Q9967 Reason For Exam (CT Abdomen/Pelvis w/ + w/o Contrast) Post-op pain Report CT ABDOMEN AND PELVIS WITH CONTRAST CLINICAL INDICATION: Endometrialcarcinoma. Postoperative pain with nausea and vomiting TECHNIQUE: Transaxial sequence through the abdomen and pelvis with 3 mm reconstruction following oral contrast with dynamic intravenous infusionof 75 mL of 370 mg% contrast media. Coronal and sagittal reconstructions included. Dose reduction was employed with automated exposure control. COMPARISON: Five days ago FINDINGS: Chest base: Normal.Liver: Normal size and contour. No focal lesion. Biliary tree: Normal caliber. Spleen: Normal. Adrenals: Normal. Pancreas: Normal. Kidneys: Symmetric contrast enhancement is noted. There is a left ureteral stent extending to the urinary bladder. There is however, some stranding in the retroperitoneum surrounding the lower ureter. No hydronephrosis is noted. No focal lesion. Free fluid: None. Retroperitoneal/mesenteric lymphadenopathy: None. Aorta: Normal caliber. Bowel: Normal caliber. Normal ap pendix Abdominal wall: Normal. Pelvic organs/viscera: There is a decreased amount of presacral Computed Tomography Report ill-defined increased attenuation and fluid attenuation since five days ago. Relatively large ovaries are noted. The uterus is absent. Pelvic lymphadenopathy: None. Osseous structures: Normal. IMPRESSION: 1. Decreased amount of fluid and stranding in the retroperitoneum with aleft ureteral stent remains in place 2. No new abnormality. Labs: Recent Results (from the past 24 hour(s)) CBC WITH AUTO DIFFERENTIAL Collection Time: 01/03/21 2:48 AM Result Value Ref Range WBC 11.4 (H) 3.6 - 10.7 10*3/uL RBC 4.87 3.80 - 5.20 10*6/uL Hemoglobin 12.8 11.7 - 16.0 g/dL Hematocrit 38.3 35.0 - 47.0 % MCV 78.6 (L) 79.0 - 98.0 fL MCH 26.2 26.0 - 34.0 pg MCHC 33.4 32.0 - 36.0 % RDW 16.6 (H) 11.5 - 14.5 % Platelets 345 140 - 440 10*3/uL MPV 6.8 (L) 7.4 - 10.4 fL Granulocytes % 68.2 40.0 - 80.0 % Lymphocyte % 21.7 20.0 - 40.0 % Monocytes 5.7 2.0 - 10.0 % Eosinophils 3.2 1.0 - 6.0 % Basophils 1.2 0.0 - 2.0 % Absolute Neut # 7.8 (H) 1.8 - 7.0 10*3/uL Absolute Lymph # 2.5 1.0 - 4.3 10*3/uL Absolute [place] # 0.7 0.0 - 0.8 10*3/uL Absolute Eos # 0.4 0.0 - 0.5 10*3/uL Absolute Baso # 0.1 0.0 - 0.2 10*3/uL Assessment/Plan: Addis Torres 20 y.o. female admitted for shortness of breath Nausea, vomiting - two episodes overnight, treated with IV zofran and compazine - MAR reviewed, patient has not been taking any PO medications other than Pepcid and Cipro last night Ureteral injury - s/p L ureteral stent placement 12/22/20, replaced 12/26/20 - abx for urinoma and ESBL producing E coli in urine cx - ID consulted for antibiotic management of UTI, appreciate care - Oral cipro tolerated last night, patient requests PICC to be discontinued today Hypertension - will need referral to PCP for monitoring after d/c Final plan to be discussed with Dr. Escobedo. Jen Canas, 01/03/2021, 6:11 AM Associated attestation - Madan Escobedo MD - 01/03/2021 2:05 PM EDT Patient rounded and discussed with the residents. Patient states she is feeling much better, is nothaving any more shortness of breath. Not having any more chest discomfort. She is tolerating the p.o. Cipro. We'll plan to DC the PICC line today and hopefully discharge to home. I will see her back in 2-3 weeks. * Ruth Ann Richards MD - 01/02/2021 1:19 PM EDT Images from the original note were not included. [facility] - Infectious Diseases Attending Progress Note Subjective: Following for ?antibiotic side effects. Pt holding ice chips. Pt states her nausea is better, but she is still vomiting. Pt states she cannot keep anything down.She states she tried chicken broth and couldn't do it. She started throwing up saltine crackers before she had even swallowed them. Without provocation, pt states she thinks the PICC line is the problem. Pt states she feels so sick when it's infusing something. Pt less clear about how she feels in between doses. Per RN, PICC team offered to pull PICC back 1 cm Confirmed with pt alongside RN, thatpt wants to try oral cipro first. If she tolerates it, she prefers to have the picc line pulled andnot manipulated. Objective: Vitals: Patient Vitals for the past 24 hrs: BP Temp Temp src Pulse Resp SpO2 Height 01/02/21 1256 5' 9 (1.753 m) 01/02/21 1149 (!) 154/107 98.5 F (36.9 C) Temporal 100 22 93 % 01/01/21 2208 (!) 158/99 Temporal 110 100 % 01/01/21 2139 (!) 146/101 98.8 F (37.1 C) Temporal 94 16 99 % 01/01/21 1507 (!) 150/97 99.5 F (37.5 C) Temporal 105 17 100 % Physical Exam Vitals signs and nursing note reviewed. Constitutional: General: She is not in acute distress. Appearance: Normal appearance. She is not ill-appearing, toxic-appearing or diaphoretic. HENT: Head: Normocephalic and atraumatic. Right Ear: External ear normal. Left Ear: External ear normal. Nose: Nose normal. No congestion or rhinorrhea. Eyes: General: No scleral icterus. Right eye: No discharge. Left eye: No discharge. Conjunctiva/sclera: Conjunctivae normal. Cardiovascular: Rate and Rhythm: Regular rhythm. Tachycardia present. Heart sounds: Normal heart sounds. No murmur. Pulmonary: Effort: Pulmonary effort is normal. No respiratory distress. Breath sounds: Normal breath sounds. No wheezing. Abdominal: General: Bowel sounds are normal. There is no distension. Palpations: Abdomen is soft. There is no mass. Tenderness: There is abdominal tenderness. There is no guarding or rebound. Musculoskeletal: Normal range of motion. General: No swelling or tenderness. Right lower leg: No edema. Left lower leg: No edema. Skin: General: Skin is warm and dry. Coloration: Skin is not jaundiced. Findings: No bruising, erythema or rash. Neurological: Mental Status: She is alert and oriented to person, place, and time. Mental status is at baseline. Psychiatric: Mood and Affect: Mood normal. Behavior: Behavior normal. Thought Content: Thought content normal. Judgment: Judgment normal. Labs: Component Value Date/Time NA 136 01/01/2021 0328 K 3.7 01/01/2021 0328 CL 102 01/01/2021 0328 CO2 24 01/01/2021 0328 BUN 11 01/01/2021 0328 CREATININE 0.73 01/01/2021 0328 GLUCOSE 89 01/01/2021 0328 CALCIUM 9.7 01/01/2021 0328 PROT 8.0 12/30/2020 1640 LABALBU 4.3 12/30/2020 1640 BILITOT 0.3 12/30/2020 1640 ALKPHOS 54 12/30/2020 1640 AST 28 12/30/2020 1640 ALT 21 12/30/2020 1640 PROCAL <0.10 12/21/20202033 Component Value Date/Time WBC 11.3 (H) 01/02/2021 0308 HGB 11.6 (L) 01/02/2021307 HCT 34.7 (L) 01/02/20218 PLT 283 01/02/2021307 GRANULOCYTES 74.9 01/02/2021307 LYMPHOPCT 15.1 (L) 01/02/20218 MONOPCT 7.5 01/02/2021307 LABEOS 2.0 01/02/2021307 BASOPCT 0.5 01/02/2021307 NEUTROABS 8.5 (H) 01/02/2021307 Micro: 12/21 BC 09/07 negative 12/22 BC 09/07 negative 12/22 urine 10-50K ESBL E coli Lines: PICC Radiography/Echo/Other: 12/31 CT a/p 1. Decreased amount of fluid and stranding in the retroperitoneum with a left ureteral stent remains in place 2. No new abnormality. 12/30 CXR 1. Left PICC catheter placement and position, as reported. 2. Otherwise, unremarkable. 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 Pt tolerated prior to discharge. 5) suspect there is a component of anxiety leading to some of pt's symptoms, like her chest discomfort with use of PICC 6) tachycardia; on review of EMR, pt was tachycardic on discharge. lower suspicion uncontrolled infection contributing at this point. Pt's pain appears to be controlled. Pt afebrile with normal WBC. Plan: - convert IV cipro to po cipro and observe - if pt able to tolerate po cipro, can d/c PICC - if pt does not tolerate po cipro, pt ok with adjusting PICC - d/w RN, primary - following Ruth Ann Richards MD * Janeen Mckeon, MS, RD, LD - 01/02/2021 1:03 PM EDT Comprehensive Nutrition Assessment Type and Reason for Visit: Initial Nutrition Recommendations/Plan: 1. Continue current General diet. 2. Per MNT protocol, initiate ONS Ensure Clear TID to provide 240 kcals and 8g protein per serving. 3. Please document % meal/ONS intakes under I/O flowsheet to better assess adequacy of PO. 4. Monitor nutrition status, intakes/tolerance, wt trends, labs, healing, and fluid balance. RD will continue to follow. Nutrition Assessment: Pt s/p [id number] for endometrial cancer 12/18/20 complicated by ureteral injury requiring insertion of L ureteral stent 12/22/20 (replaced 12/26/20), and discharged on 12/28/20. Now admitted w/ SOB, n/v. CTA, EKG, and CXR unremarkable; CT A/P w/o new abnormalities. ID following- changed abx to IV Cipro and will trial oral today. Pt reports unable to keep down solids since Thursday (4 days now). Pt attempted to consume crackers this AM and was still unable to tolerate. Pt reports UBW 203#, and denies wt loss thus far. RD encouraged small frequent meals/snacks and GI Soft diet to promote tolerance. Pt agreeable to trialing Ensure Clear. Malnutrition Assessment: Malnutrition Status: At risk for malnutrition (Comment) Context: Acute Illness Findings of the 6 clinical characteristics of malnutrition: Energy Intake: 7 - 50% or less of estimated energy requirements for 5 or more days(x4 days) Weight Loss: No significant weight loss Body Fat Loss: No significant body fat loss Muscle Mass Loss: No significant muscle mass loss Fluid Accumulation: No significant fluid accumulation Supervisor [employer] Strength: Not Performed Estimated Daily Nutrient Needs: Energy (kcal): 5114-7677; Weight Used for Energy Requirements: [place] Protein (g): 79-92; Weight Used for Protein Requirements: [place] Fluid (ml/day): per MD; Nutrition Related Findings: +BS. No edema. Sachin 21. Wounds: Surgical Incision Current Nutrition Therapies: DIET GENERAL; Anthropometric Measures: Height: 5' 9 (175.3 cm) Current Body Weight: 203 lb (92.1 kg)(12/30) Usual Body Weight: 203 lb (92.1 kg) [place] Body Weight: 145 lbs; % [place] Body Weight 140 % BMI: 30 Adjusted Body Weight: ; No Adjustment BMI Categories: Obese Class 1 (BMI 30.0-34.9) Nutrition Diagnosis: Inadequate oral intake related to altered GI function as evidenced by nausea, vomiting, intake 0-25%, poor intake prior to admission Nutrition Interventions: Food and/or Nutrient Delivery: Continue Current Diet, Start Oral Nutrition Supplement Nutrition Education/Counseling: No recommendation at this time Coordination of Nutrition Care: Continue to monitor while inpatient Goals: Pt to consume >50% of meals and ONS Nutrition Monitoring and Evaluation: Behavioral-Environmental Outcomes: None Identified Food/Nutrient Intake Outcomes: Diet Advancement/Tolerance, Food and Nutrient Intake, Supplement Intake Physical Signs/Symptoms Outcomes: Biochemical Data, GI Status, Nausea or Vomiting, Fluid Status or Edema, Nutrition Focused Physical Findings, Skin, Weight Discharge Planning: Too soon to determine Contact: [phone] * Ale Gonzales RN - 01/02/2021 6:16 AM EDT Pt vomited x1 stated she attempted to eat a cracker and a little bit of water and she said he came back up automatically and states she is so hungry but can not keep anything down. Prn zofran given via iv. * Rekha Rowland DO - 01/02/2021 6:05 AM EDT Images from the original note were not included. 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 female admitted for shortness of breath No acute events reported overnight. Patient was evaluated at the bedside this morning. Patient complains of abdominal pain this AM due to not eating much over the last 2 days. She says that her nausea has improved though after changingantibiotics and is going to try and eat breakfast this morning. Still having episodes of heart racing and funny feeling in chest. Vitals: Vitals: 01/01/21 0758 01/01/21 1507 01/01/21 2139 01/01/21 2208 BP: (!) 158/103 (!) 150/97 (!) 146/101 (!) 158/99 Pulse: 106 105 94 110 Resp: 17 16 Temp: 99 F (37.2 C) 99.5 F (37.5 C) 98.8 F (37.1 C) TempSrc: Temporal Temporal Temporal Temporal SpO2: 98% 100% 99% 100% Weight: Height: Intake/Output: Last Shift: @[id number]@ Current Shift: No intake/output data recorded. Physical Exam: Gen: NAD, alert and cooperative HEENT: Normocephalic, atraumatic, EOMI, MMM Resp: CTABL, no WRR Card: RRR, no murmur Abd: Soft, non-distended, non-tender. No rebound tenderness, guarding, or rigidity. Active bowel sounds on auscultation Incisions: Well healing laparoscopic incisions Ext: No LE edema, no calf tenderness or swelling Medications: Current Facility-Administered Medications Medication Dose Route Frequency Provider Last Rate Last Admin ciprofloxacin (CIPRO) IVPB 400 mg 400 mg Intravenous Q12H Ruth Ann Richards MD Stopped at 01/02/21 0218 famotidine (PEPCID) tablet 20 mg 20 mg Oral Daily Rekha Rowland, DO 20 mg at 01/01/21 1659 LORazepam (ATIVAN) tablet 0.5 mg 0.5 mg Oral Q6H PRN Jen Canas, DO 0.5 mg at 01/01/21 2212 phenazopyridine (PYRIDIUM) tablet 200 mg 200 mg Oral TID PRN Franco Adame MD acetaminophen (TYLENOL) tablet 650 mg 650 mg Oral Q6H Franco Adame MD 650 mg at 01/02/21 0059 heparin flush 100 UNIT/ML injection 250 Units 250 Units Intravenous 2 times per day Franco Adame MD 250 Units at 01/01/212058 heparin flush 100 UNIT/ML injection 250 Units 250 Units Intracatheter Q12H Franco Adame MD 250 Units at 01/01/21 205 polyethylene glycol (GLYCOLAX) packet 17 g 17 g Oral Daily Franco Adame MD 17 g at 12/31/20 0822 sodium chloride flush 0.9 % injection 10 mL 10 mL Intravenous 2 times per day Franco Adame MD 10 mL at 01/01/21 205 0.9 % sodium chloride infusion 25 mL Intravenous PRN Franco Adame MD calcium carbonate (TUMS) chewable tablet 500 mg 500 mg Oral TID PRN Franco Adame MD 500 mg at 01/01/21 1602 docusate sodium (COLACE) capsule 100 mg 100 mg Oral BID PRN Franco Adame MD heparin flush 100 UNIT/ML injection 250 Units 250 Units Intracatheter PRN Franco Adame MD oxyCODONE (ROXICODONE) immediate release tablet 5 mg 5 mg Oral Q4H PRN Franco Adame MD Or oxyCODONE (ROXICODONE) immediate release tablet 10 mg 10 mg Oral Q4H PRN Franco Adame MD 10 mg at 12/30/20 184 sodium chloride flush 0.9 % injection 10 mL 10 mL Intracatheter PRN Franco Adame MD sodium chloride flush 0.9 % injection 10 mL 10 mL Intravenous PRN Franco Adame MD sodium chloride flush 0.9 % injection 10 mL 10 mL Intravenous PRN Franco Adame MD diatrizoate meglumine-sodium (GASTROGRAFIN) 66-10 % solution 30 mL 30 mL Oral ONCE PRN Franco Adame MD 30 mL at 12/30/20 235 ondansetron (ZOFRAN-ODT) disintegrating tablet 4 mg 4 mg Oral Q6H PRN Rekha T Kashif, DO Or ondansetron (ZOFRAN) injection 4 mg 4 mg Intravenous Q6H PRN Rekha Farrukh Kashif, DO 4 mg at 605 Diagnostics: Xr Chest Portable Result Date: 12/30/2020 Patient Name: ADDIS TORRES Diagnostic Radiology ACCESSION EXAM DATE/TIME PROCEDURE ORDERING PROVIDER [id number] 12/30/2020 18:36 EDT CR Chest Portable DO ADAME KATHERINE I CPT code 08824 Reason For Exam (CR Chest Portable) check picc placement Report CHEST PORTABLE CLINICAL INDICATION: check picc placement TECHNIQUE: Portable chest x-ray(s). COMPARISON: 2020. FINDINGS: Left PICC catheter tip projects over the SVC. Cardiac silhouette within normal limits. Lungs are grossly clear. No apparent pneumothorax. IMPRESSION: 1. Left PICC catheter placement and position, as reported. 2. Otherwise, unremarkable. Report Dictated on --- Final --- Dictated: 12/30/2020 6:36 pm Dictating Physician: MD VALE WENDELL Signed Date and Time: 12/30/2020 6:38 pm Signed by: MD VALE WENDELL Transcribed Date and Time: 12/30/2020 6:36 Ct Abdomen Pelvis W Wo Contrast Result Date: 12/31/2020 Patient Name: ADDIS TORRES Computed Tomography ACCESSION EXAM DATE/TIME PROCEDURE ORDERING PROVIDER [id number] 12/31/2020 02:[address] Abdomen/Pelvis w/ DO MARCIN FRANCO I + w/o Contrast CPT code 68523 Q9967 Reason For Exam (CT Abdomen/Pelvis w/ + w/o Contrast) Post-op pain Report CT ABDOMEN AND PELVIS WITH CONTRAST CLINICAL INDICATION: Endometrialcarcinoma. Postoperative pain with nausea and vomiting TECHNIQUE: Transaxial sequence through the abdomen and pelvis with 3 mm reconstruction following oral contrast with dynamic intravenous infusionof 75 mL of 370 mg% contrast media. Coronal and sagittal reconstructions included. Dose reduction was employed with automated exposure control. COMPARISON: Five days ago FINDINGS: Chest base: Normal.Liver: Normal size and contour. No focal lesion. Biliary tree: Normal caliber. Spleen: Normal. Adrenals: Normal. Pancreas: Normal. Kidneys: Symmetric contrast enhancement is noted. There is a left ureteral stent extending to the urinary bladder. There is however, some stranding in the retroperitoneum surrounding the lower ureter. No hydronephrosis is noted. No focal lesion. Free fluid: None. Retroperitoneal/mesenteric lymphadenopathy: None. Aorta: Normal caliber. Bowel: Normal caliber. Normal ap pendix Abdominal wall: Normal. Pelvic organs/viscera: There is a decreased amount of presacral Computed Tomography Report ill-defined increased attenuation and fluid attenuation since five days ago. Relatively large ovaries are noted. The uterus is absent. Pelvic lymphadenopathy: None. Osseous structures: Normal. IMPRESSION: 1. Decreased amount of fluid and stranding in the retroperitoneum with aleft ureteral stent remains in place 2. No new abnormality. Report Dictated on Workstation: [facility] --- Final --- Dictated: 12/31/2020 3:28 am Dictating Physician: MD OSBORN JEFFREY Signed Date and Time: 12/31/2020 3:44 am Signed by: MD OSBORN JEFFREY Transcribed Date and Time: 12/31/2020 3:28 Labs: Admission on 12/30/2020 Component Date Value Ref Range Status WBC 12/30/2020 11.5* 3.6 - 10.7 10*3/uL Final RBC 12/30/2020 4.55 3.80 - 5.20 10*6/uL Final Hemoglobin 12/30/2020 11.9 11.7 - 16.0 g/dL Final Hematocrit 12/30/2020 36.4 35.0 - 47.0 % Final MCV 12/30/2020 79.9 79.0 - 98.0 fL Final MCH 12/30/2020 26.0 26.0 - 34.0 pg Final MCHC 12/30/2020 32.6 32.0 - 36.0 % Final RDW 12/30/2020 17.7* 11.5 - 14.5 % Final Platelets 12/30/2020 336 140 - 440 10*3/uL Final MPV 12/30/2020 6.8* 7.4 - 10.4 fL Final Granulocytes % 12/30/2020 77.6 40.0 - 80.0 % Final Lymphocyte % 12/30/2020 14.5* 20.0 - 40.0 % Final Monocytes 12/30/2020 4.9 2.0 - 10.0 % Final Eosinophils 12/30/2020 2.4 1.0 - 6.0 % Final Basophils 12/30/2020 0.6 0.0 - 2.0 % Final Absolute Neut # 12/30/2020 8.9* 1.8 - 7.0 10*3/uL Final Absolute Lymph # 12/30/2020 1.7 1.0 - 4.3 10*3/uL Final Absolute [place] # 12/30/2020 0.6 0.0 - 0.8 10*3/uL Final Absolute Eos # 12/30/2020 0.3 0.0 - 0.5 10*3/uL Final Absolute Baso # 12/30/2020 0.1 0.0 - 0.2 10*3/uL Final Sodium 12/30/2020 139 135 - 145 mmol/L Final Potassium 12/30/2020 3.6 3.5 - 5.1 mmol/L Final Chloride 12/30/2020 105 98 - 107 mmol/L Final CO2 12/30/2020 24 22 - 30 mmol/L Final Anion Gap 12/30/2020 11 3 - 13 mmol/L Final Glucose 12/30/2020 133* 70 - 100 mg/dL Final BUN 12/30/2020 10 7 - 20 mg/dL Final CREATININE 12/30/2020 0.69 0.52 - 1.25 mg/dL Final eGFR 12/30/2020 >90.0 >60 mL/min Final EGFR IF NonAfrican [place]ib[place]ian 12/30/2020 >90.0 >60 mL/min Final Comment: KDIGO guidelines provide the following GFR categories: Stage GFR(ml/min/1.73 m2) Terms G1 >=90 Normal or high G2 60-89 Mildly decreased* G3a 45-59 Mildly to moderately decreased G3b 30-44 Moderately to severely decreased G4 15-29 Severely decreased G5 <15 Kidney failure *Relative to young adult level. In the absence of evidence of kidney damage, neither GFR category G1 nor G2 fulfill the criteria for CKD. The CKD-EPI equation is validated in individuals 18 years of age and older. Currently the best equation for estimating glomerular filtration rate (GFR) from serum creatinine in children is the Bedside Boyer equation. It is less accurate in patients with extremes of muscle mass, restriction of dietary protein, ingestion of creatine, extra-renal metabolism of creatinine, or treatment with medications that affect renal tubular creatinine secretion. Calcium 12/30/2020 9.9 8.4 - 10.4 mg/dL Final Albumin,Serum 12/30/2020 4.3 3.5 - 5.0 g/dL Final Total Protein 12/30/2020 8.0 6.3 - 8.2 g/dL Final Total Bilirubin 12/30/2020 0.3 0.2 - 1.3 mg/dL Final Alkaline Phosphatase 12/30/2020 54 38 - 126 U/L Final ALT 12/30/2020 21 0 - 34 U/L Final Comment: The ALT test is performed by an updated assay method. Please note that the reference intervals have been changed and are now sex specific. AST 12/30/2020 28 15 - 46 U/L Final Magnesium 12/30/2020 2.0 1.6 - 2.3 mg/dL Final Phosphorus 12/30/2020 3.5 2.5 - 4.5 mg/dL Final Respiratory Panel Molecular, with * 12/30/2020 Final Value:NEGATIVE: No targets were detected by the [employer] Upper Respiratory Pathogens PCR Panel. _ Expected Result: Not Detected The [facility] Upper Respiratory Pathogens PCR Panel can detect the following targets: SARS-CoV-2, Adenovirus, Coronavirus 229E, Coronavirus HKU1, Coronavirus NL63, Coronavirus OC43, Human Metapneumovirus, Human Rhinovirus/Enterovirus, Influenza A, Influenza B, Parainfluenza Virus 1, Parainfluenza Virus 2, Parainfluenza Virus 3, Parainfluenza Virus 4, Respiratory Syncytial Virus, Bordetella pertussis, Bordetella parapertussis, Chlamydia pneumoniae, Mycoplasma pneumoniae. Negative results do not preclude SARS-CoV-2 infection and should not be used as the sole basis for treatment or other patient management decisions. This assay was developed by [employer] and distributed under an Emergency Use Authorization (EUA) granted by the FDA for the qualitative detection of SARS-CoV-2 nucleic acid. Provider and patient fact sheets can be found at https://www.fda. gov/media/209363/download and https://www.fda.gov/media/634047/download. WBC 01/01/2021 9.9 3.6 - 10.7 10*3/uL Final RBC 01/01/2021 4.56 3.80 - 5.20 10*6/uL Final Hemoglobin 01/01/2021 12.3 11.7 - 16.0 g/dL Final Hematocrit 01/01/2021 36.4 35.0 - 47.0 % Final MCV 01/01/2021 79.9 79.0 - 98.0 fL Final MCH 01/01/2021 26.9 26.0 - 34.0 pg Final MCHC 01/01/2021 33.7 32.0 - 36.0 % Final RDW 01/01/2021 16.7* 11.5 - 14.5 % Final Platelets 01/01/2021 326 140 - 440 10*3/uL Final MPV 01/01/2021 8.3 7.4 - 10.4 fL Final Granulocytes % 01/01/2021 74.7 40.0 - 80.0 % Final Lymphocyte % 01/01/2021 17.0* 20.0 - 40.0 % Final Monocytes 01/01/2021 5.4 2.0 - 10.0 % Final Eosinophils 01/01/2021 2.4 1.0 - 6.0 % Final Basophils 01/01/2021 0.5 0.0 - 2.0 % Final Absolute Neut # 01/01/2021 7.4* 1.8 - 7.0 10*3/uL Final Absolute Lymph # 01/01/2021 1.7 1.0 - 4.3 10*3/uL Final Absolute [place] # 01/01/2021 0.5 0.0 - 0.8 10*3/uL Final Absolute Eos # 01/01/2021 0.2 0.0 - 0.5 10*3/uL Final Absolute Baso # 01/01/2021 0.1 0.0 - 0.2 10*3/uL Final Sodium 01/01/2021 136 135 - 145 mmol/L Final Potassium 01/01/2021 3.7 3.5 - 5.1 mmol/L Final Chloride 01/01/2021 102 98 - 107 mmol/L Final CO2 01/01/2021 24 22 - 30 mmol/L Final Anion Gap 01/01/2021 10 3 - 13 mmol/L Final Glucose 01/01/2021 89 70 - 100 mg/dL Final BUN 01/01/2021 11 7 - 20 mg/dL Final CREATININE 01/01/2021 0.73 0.52 - 1.25 mg/dL Final eGFR 01/01/2021 >90.0 >60 mL/min Final EGFR IF NonAfrican [place]ian 01/01/2021 >90.0 >60 mL/min Final Comment: KDIGO guidelines provide the following GFR categories: Stage GFR(ml/min/1.73 m2) Terms G1 >=90 Normal or high G2 60-89 Mildly decreased* G3a 45-59 Mildly to moderately decreased G3b 30-44 Moderately to severely decreased G4 15-29 Severely decreased G5 <15 Kidney failure *Relative to young adult level. In the absence of evidence of kidney damage, neither GFR category G1 nor G2 fulfill the criteria for CKD. The CKD-EPI equation is validated in individuals 18 years of age and older. Currently the best equation for estimating glomerular filtration rate (GFR) from serum creatinine in children is the Bedside Boyer equation. It is less accurate in patients with extremes of muscle mass, restriction of dietary protein, ingestion of creatine, extra-renal metabolism of creatinine, or treatment with medications that affect renal tubular creatinine secretion. Calcium 01/01/2021 9.7 8.4 - 10.4 mg/dL Final Magnesium 01/01/2021 2.1 1.6 - 2.3 mg/dL Final Phosphorus 01/01/2021 4.5 2.5 - 4.5 mg/dL Final WBC 01/02/2021 11.3* 3.6 - 10.7 10*3/uL Final RBC 01/02/2021 4.38 3.80 - 5.20 10*6/uL Final Hemoglobin 01/02/2021 11.6* 11.7 - 16.0 g/dL Final Hematocrit 01/02/2021 34.7* 35.0 - 47.0 % Final MCV 01/02/2021 79.2 79.0 - 98.0 fL Final MCH 01/02/2021 26.5 26.0 - 34.0 pg Final MCHC 01/02/2021 33.4 32.0 - 36.0 % Final RDW 01/02/2021 17.0* 11.5 - 14.5 % Final Platelets 01/02/2021 283 140 - 440 10*3/uL Final MPV 01/02/2021 7.0* 7.4 - 10.4 fL Final Granulocytes % 01/02/2021 74.9 40.0 - 80.0 % Final Lymphocyte % 01/02/2021 15.1* 20.0 - 40.0 % Final Monocytes 01/02/2021 7.5 2.0 - 10.0 % Final Eosinophils 01/02/2021 2.0 1.0 - 6.0 % Final Basophils 01/02/2021 0.5 0.0 - 2.0 % Final Absolute Neut # 01/02/2021 8.5* 1.8 - 7.0 10*3/uL Final Absolute Lymph # 01/02/2021 1.7 1.0 - 4.3 10*3/uL Final Absolute [place] # 01/02/2021 0.8 0.0 - 0.8 10*3/uL Final Absolute Eos # 01/02/2021 0.2 0.0 - 0.5 10*3/uL Final Absolute Baso # 01/02/2021 0.1 0.0 - 0.2 10*3/uL Final RBC Morphology 01/02/2021 ABNORMAL NA Final Anisocytosis 01/02/2021 Slight NA Final Poikilocytes 01/02/2021 Slight NA Final Microcytosis 01/02/2021 Slight NA Final Ovalocytes 01/02/2021 Slight NA Final Elliptocytes 01/02/2021 Slight NA Final Assessment/Plan: Addis Torres 20 y.o. female admitted for shortness of breath/tachycadia Shortness of breath/Tachycardia - Continues to complain of intermittent shortness of breath, tachycardia - Afebrile - Work up negative to date - Cardiology consulted, most likely reflex HTN and tachycardia in the setting of recurrent nausea and vomiting Ureteral injury - s/p L ureteral stent placement 12/22/20, replaced 12/26/20 - ID consulted for antibiotic management of UTI, appreciate care - Antibiotics change to IV Cipro yesterday, plan to convert to oral cipro if patient can tolerate PO per ID Post-op care - Pain well controlled - Voiding spontaneously - Encourage ambulation and use of incentive spirometer - SCDs while in bed Further plan pending discussion with Dr. Escobedo. Rekha Rowland, 01/02/2021, 6:05 AM Associated attestation - Madan Escobedo MD - 01/02/2021 3:32 PM EDT Rounded with the residents. Patient is convinced that it is the PICC line that is causing her discomfort. She especially feels this during any kind of flushing of the PICC line. Discussed switching to an oral medication and if she is able to tolerate with we'll plan on removing the PICC line tomorrow. The patient is in agreement. * Rekha Rowland DO - 01/01/2021 2:30 PM EDT Patient evaluated at bedside. She is still complaining of continued nausea, has vomited 3 times today. She has tried eating toast but says that it makes her sick. She is tolerating water. Vitals: 01/01/21 0758 BP: (!) 158/103 Pulse: 106 Resp: 17 Temp: 99 F (37.2 C) SpO2: 98% Gen- AOx3, NAD Lungs- no respiratory distress A/P: - Antibiotics changed today to Cipro by ID, hopeful this will decrease nausea - Will add Pepcid for GERD * Marjorie Moreland - 01/01/2021 10:27 AM EDT Nutrition rescreen completed. Patient referred to the Dietitian. FABRICIO Ardon * Rekha Rowland DO - 01/01/2021 5:52 AM EDT Images from the original note were not included. [employer]/ONC Progress Note Date: 01/01/2021 Time: 5:52 AM Addis Torres 20 y.o. female admitted for shortness of breath Patient was evaluated at the bedside this morning and was actively vomiting. She states that she has been vomiting throughout the night and is now only vomiting stomach acid. She also has that funnyfeeling in her chest associated with vomiting. She says the vomiting started on Thursday night aftershe was discharged from the hospital and is worried it may be from the antibiotics. Vitals: Vitals: 12/31/20 1030 12/31/20 1056 12/31/20 1927 01/01/21 0327 BP: (!) 160/111 (!) 159/98 (!) 145/88 Pulse: 110 113 109 96 Resp: 16 16 Temp: 99.3 F (37.4 C) 98.9 F (37.2 C) 99 F (37.2 C) TempSrc: Temporal Oral Temporal SpO2: 100% 100% 97% 99% Weight: Height: Intake/Output: Last Shift: @[id number]@ Current Shift: No intake/output data recorded. Physical Exam: Gen: NAD, alert and cooperative HEENT: Normocephalic, atraumatic, EOMI, MMM Resp: CTABL, no WRR Card: RRR, no murmur Abd: Soft, non-distended, non-tender. No rebound tenderness, guarding, or rigidity. Active bowel sounds on auscultation Incisions: Well healing laparoscopic incisions Ext: No LE edema, no calf tenderness or swelling Medications: Current Facility-Administered Medications Medication Dose Route Frequency Provider Last Rate Last Admin LORazepam (ATIVAN) tablet 0.5 mg 0.5 mg Oral Q6H PRN Jen Canas, DO 0.5 mg at 12/31/20 0816 promethazine (PHENERGAN) injection 12.5 mg 12.5 mg Intravenous Q6H PRN Rekha Rowland, DO 12.5 mg at 12/31/20 1940 phenazopyridine (PYRIDIUM) tablet 200 mg 200 mg Oral TID PRN Franco Adame MD acetaminophen (TYLENOL) tablet 650 mg 650 mg Oral Q6H Franco Adame MD 650 mg at 12/31/20 0716 heparin flush 100 UNIT/ML injection 250 Units 250 Units Intravenous 2 times per day Franco Adame MD 250 Units at 12/31/202115 heparin flush 100 UNIT/ML injection 250 Units 250 Units Intracatheter Q12H Franco Adame MD 250 Units at 12/31/202114 polyethylene glycol (GLYCOLAX) packet 17 g 17 g Oral Daily Franco Adame MD 17 g at 12/31/20 0822 sodium chloride flush 0.9 % injection 10 mL 10 mL Intravenous 2 times per day Franco Adame MD 10 mL at 12/31/20 211 0.9 % sodium chloride infusion 25 mL Intravenous PRN Franco Adame MD calcium carbonate (TUMS) chewable tablet 500 mg 500 mg Oral TID PRN Franco Adame MD docusate sodium (COLACE) capsule 100 mg 100 mg Oral BID PRN Franco Adame MD heparin flush 100 UNIT/ML injection 250 Units 250 Units Intracatheter PRN Franco Adame MD oxyCODONE (ROXICODONE) immediate release tablet 5 mg 5 mg Oral Q4H PRN Franco Adame MD Or oxyCODONE (ROXICODONE) immediate release tablet 10 mg 10 mg Oral Q4H PRN Franco Adame MD 10 mg at 12/30/20 1848 sodium chloride flush 0.9 % injection 10 mL 10 mL Intracatheter PRN Franco Adame MD sodium chloride flush 0.9 % injection 10 mL 10 mL Intravenous PRN Franco Adame MD sodium chloride flush 0.9 % injection 10 mL 10 mL Intravenous PRN Franco Adame MD diatrizoate meglumine-sodium (GASTROGRAFIN) 66-10 % solution 30 mL 30 mL Oral ONCE PRN Franco Adame MD 30 mL at 12/30/20 2352 ertapenem (INVanz) 1000 mg IVPB minibag 1,000 mg Intravenous Q24H Moose Stoddard DO Stopped at 12/31/20 1355 ondansetron (ZOFRAN-ODT) disintegrating tablet 4 mg 4 mg Oral Q6H PRN Moose Stoddard DO Or ondansetron (ZOFRAN) injection 4 mg 4 mg Intravenous Q6H PRN Moose Stoddard DO 4 mg at 01/01/21 0328 Diagnostics: Xr Chest Portable Result Date: 12/30/2020 Patient Name: ADDIS TORRES Diagnostic Radiology ACCESSION EXAM DATE/TIME PROCEDURE ORDERING PROVIDER [id number] 12/30/2020 18:36 EDT CR Chest Portable DO ADAME KATHERINE I CPT code 59485 Reason For Exam (CR Chest Portable) check picc placement Report CHEST PORTABLE CLINICAL INDICATION: check picc placement TECHNIQUE: Portable chest x-ray(s). COMPARISON: 2020. FINDINGS: Left PICC catheter tip projects over the SVC. Cardiac silhouette within normal limits. Lungs are grossly clear. No apparent pneumothorax. IMPRESSION: 1. Left PICC catheter placement and position, as reported. 2. Otherwise, unremarkable. Report Dictated on --- Final --- Dictated: 12/30/2020 6:36 pm Dictating Physician: MD VALE WENDELL Signed Date and Time: 12/30/2020 6:38 pm Signed by: MD VALE WENDELL Transcribed Date and Time: 12/30/2020 6:36 Ct Abdomen Pelvis W Wo Contrast Result Date: 12/31/2020 Patient Name: ADDIS TORRES Computed Tomography ACCESSION EXAM DATE/TIME PROCEDURE ORDERING PROVIDER [id number] 12/31/2020 02:[address] Abdomen/Pelvis w/ DO ADAME KATHERINE I + w/o Contrast CPT code 70191 Q9967 Reason For Exam (CT Abdomen/Pelvis w/ + w/o Contrast) Post-op pain Report CT ABDOMEN AND PELVIS WITH CONTRAST CLINICAL INDICATION: Endometrialcarcinoma. Postoperative pain with nausea and vomiting TECHNIQUE: Transaxial sequence through the abdomen and pelvis with 3 mm reconstruction following oral contrast with dynamic intravenous infusionof 75 mL of 370 mg% contrast media. Coronal and sagittal reconstructions included. Dose reduction was employed with automated exposure control. COMPARISON: Five days ago FINDINGS: Chest base: Normal.Liver: Normal size and contour. No focal lesion. Biliary tree: Normal caliber. Spleen: Normal. Adrenals: Normal. Pancreas: Normal. Kidneys: Symmetric contrast enhancement is noted. There is a left ureteral stent extending to the urinary bladder. There is however, some stranding in the retroperitoneum surrounding the lower ureter. No hydronephrosis is noted. No focal lesion. Free fluid: None. Retroperitoneal/mesenteric lymphadenopathy: None. Aorta: Normal caliber. Bowel: Normal caliber. Normal ap pendix Abdominal wall: Normal. Pelvic organs/viscera: There is a decreased amount of presacral Computed Tomography Report ill-defined increased attenuation and fluid attenuation since five days ago. Relatively large ovaries are noted. The uterus is absent. Pelvic lymphadenopathy: None. Osseous structures: Normal. IMPRESSION: 1. Decreased amount of fluid and stranding in the retroperitoneum with aleft ureteral stent remains in place 2. No new abnormality. Report Dictated on Workstation: [facility] --- Final --- Dictated: 12/31/2020 3:28 am Dictating Physician: MD OSBORN JEFFREY Signed Date and Time: 12/31/2020 3:44 am Signed by: MD OSBORN JEFFREY Transcribed Date and Time: 12/31/2020 3:28 Labs: Admission on 12/30/2020 Component Date Value Ref Range Status WBC 12/30/2020 11.5* 3.6 - 10.7 10*3/uL Final RBC 12/30/2020 4.55 3.80 - 5.20 10*6/uL Final Hemoglobin 12/30/2020 11.9 11.7 - 16.0 g/dL Final Hematocrit 12/30/2020 36.4 35.0 - 47.0 % Final MCV 12/30/2020 79.9 79.0 - 98.0 fL Final MCH 12/30/2020 26.0 26.0 - 34.0 pg Final MCHC 12/30/2020 32.6 32.0 - 36.0 % Final RDW 12/30/2020 17.7* 11.5 - 14.5 % Final Platelets 12/30/2020 336 140 - 440 10*3/uL Final MPV 12/30/2020 6.8* 7.4 - 10.4 fL Final Granulocytes % 12/30/2020 77.6 40.0 - 80.0 % Final Lymphocyte % 12/30/2020 14.5* 20.0 - 40.0 % Final Monocytes 12/30/2020 4.9 2.0 - 10.0 % Final Eosinophils 12/30/2020 2.4 1.0 - 6.0 % Final Basophils 12/30/2020 0.6 0.0 - 2.0 % Final Absolute Neut # 12/30/2020 8.9* 1.8 - 7.0 10*3/uL Final Absolute Lymph # 12/30/2020 1.7 1.0 - 4.3 10*3/uL Final Absolute [place] # 12/30/2020 0.6 0.0 - 0.8 10*3/uL Final Absolute Eos # 12/30/2020 0.3 0.0 - 0.5 10*3/uL Final Absolute Baso # 12/30/2020 0.1 0.0 - 0.2 10*3/uL Final Sodium 12/30/2020 139 135 - 145 mmol/L Final Potassium 12/30/2020 3.6 3.5 - 5.1 mmol/L Final Chloride 12/30/2020 105 98 - 107 mmol/L Final CO2 12/30/2020 24 22 - 30 mmol/L Final Anion Gap 12/30/2020 11 3 - 13 mmol/L Final Glucose 12/30/2020 133* 70 - 100 mg/dL Final BUN 12/30/2020 10 7 - 20 mg/dL Final CREATININE 12/30/2020 0.69 0.52 - 1.25 mg/dL Final eGFR 12/30/2020 >90.0 >60 mL/min Final EGFR IF NonAfrican [place] 12/30/2020 >90.0 >60 mL/min Final Comment: KDIGO guidelines provide the following GFR categories: Stage GFR(ml/min/1.73 m2) Terms G1 >=90 Normal or high G2 60-89 Mildly decreased* G3a 45-59 Mildly to moderately decreased G3b 30-44 Moderately to severely decreased G4 15-29 Severely decreased G5 <15 Kidney failure *Relative to young adult level. In the absence of evidence of kidney damage, neither GFR category G1 nor G2 fulfill the criteria for CKD. The CKD-EPI equation is validated in individuals 18 years of age and older. Currently the best equation for estimating glomerular filtration rate (GFR) from serum creatinine in children is the Bedside Boyer equation. It is less accurate in patients with extremes of muscle mass, restriction of dietary protein, ingestion of creatine, extra-renal metabolism of creatinine, or treatment with medications that affect renal tubular creatinine secretion. Calcium 12/30/2020 9.9 8.4 - 10.4 mg/dL Final Albumin,Serum 12/30/2020 4.3 3.5 - 5.0 g/dL Final Total Protein 12/30/2020 8.0 6.3 - 8.2 g/dL Final Total Bilirubin 12/30/2020 0.3 0.2 - 1.3 mg/dL Final Alkaline Phosphatase 12/30/2020 54 38 - 126 U/L Final ALT 12/30/2020 21 0 - 34 U/L Final Comment: The ALT test is performed by an updated assay method. Please note that the reference intervals have been changed and are now sex specific. AST 12/30/2020 28 15 - 46 U/L Final Magnesium 12/30/2020 2.0 1.6 - 2.3 mg/dL Final Phosphorus 12/30/2020 3.5 2.5 - 4.5 mg/dL Final Respiratory Panel Molecular, with * 12/30/2020 Final Value:NEGATIVE: No targets were detected by the [employer] Upper Respiratory Pathogens PCR Panel. _ Expected Result: Not Detected The [employer] [facility] Upper Respiratory Pathogens PCR Panel can detect the following targets: SARS-CoV-2, Adenovirus, Coronavirus 229E, Coronavirus HKU1, Coronavirus NL63, Coronavirus OC43, Human Metapneumovirus, Human Rhinovirus/Enterovirus, Influenza A, Influenza B, Parainfluenza Virus 1, Parainfluenza Virus 2, Parainfluenza Virus 3, Parainfluenza Virus 4, Respiratory Syncytial Virus, Bordetella pertussis, Bordetella parapertussis, Chlamydia pneumoniae, Mycoplasma pneumoniae. Negative results do not preclude SARS-CoV-2 infection and should not be used as the sole basis for treatment or other patient management decisions. This assay was developed by [employer] and distributed under an Emergency Use Authorization (EUA) granted by the FDA for the qualitative detection of SARS-CoV-2 nucleic acid. Provider and patient fact sheets can be found at https://www.fda. gov/media/714750/download and https://www.fda.gov/media/033483/download. WBC 01/01/2021 9.9 3.6 - 10.7 10*3/uL Final RBC 01/01/2021 4.56 3.80 - 5.20 10*6/uL Final Hemoglobin 01/01/2021 12.3 11.7 - 16.0 g/dL Final Hematocrit 01/01/2021 36.4 35.0 - 47.0 % Final MCV 01/01/2021 79.9 79.0 - 98.0 fL Final MCH 01/01/2021 26.9 26.0 - 34.0 pg Final MCHC 01/01/2021 33.7 32.0 - 36.0 % Final RDW 01/01/2021 16.7* 11.5 - 14.5 % Final Platelets 01/01/2021 326 140 - 440 10*3/uL Final MPV 01/01/2021 8.3 7.4 - 10.4 fL Final Granulocytes % 01/01/2021 74.7 40.0 - 80.0 % Final Lymphocyte % 01/01/2021 17.0* 20.0 - 40.0 % Final Monocytes 01/01/2021 5.4 2.0 - 10.0 % Final Eosinophils 01/01/2021 2.4 1.0 - 6.0 % Final Basophils 01/01/2021 0.5 0.0 - 2.0 % Final Absolute Neut # 01/01/2021 7.4* 1.8 - 7.0 10*3/uL Final Absolute Lymph # 01/01/2021 1.7 1.0 - 4.3 10*3/uL Final Absolute [place] # 01/01/2021 0.5 0.0 - 0.8 10*3/uL Final Absolute Eos # 01/01/2021 0.2 0.0 - 0.5 10*3/uL Final Absolute Baso # 01/01/2021 0.1 0.0 - 0.2 10*3/uL Final Sodium 01/01/2021 136 135 - 145 mmol/L Final Potassium 01/01/2021 3.7 3.5 - 5.1 mmol/L Final Chloride 01/01/2021 102 98 - 107 mmol/L Final CO2 01/01/2021 24 22 - 30 mmol/L Final Anion Gap 01/01/2021 10 3 - 13 mmol/L Final Glucose 01/01/2021 89 70 - 100 mg/dL Final BUN 01/01/2021 11 7 - 20 mg/dL Final CREATININE 01/01/2021 0.73 0.52 - 1.25 mg/dL Final eGFR 01/01/2021 >90.0 >60 mL/min Final EGFR IF NonAfrican [place] 01/01/2021 >90.0 >60 mL/min Final Comment: KDIGO guidelines provide the following GFR categories: Stage GFR(ml/min/1.73 m2) Terms G1 >=90 Normal or high G2 60-89 Mildly decreased* G3a 45-59 Mildly to moderately decreased G3b 30-44 Moderately to severely decreased G4 15-29 Severely decreased G5 <15 Kidney failure *Relative to young adult level. In the absence of evidence of kidney damage, neither GFR category G1 nor G2 fulfill the criteria for CKD. The CKD-EPI equation is validated in individuals 18 years of age and older. Currently the best equation for estimating glomerular filtration rate (GFR) from serum creatinine in children is the Bedside Boyer equation. It is less accurate in patients with extremes of muscle mass, restriction of dietary protein, ingestion of creatine, extra-renal metabolism of creatinine, or treatment with medications that affect renal tubular creatinine secretion. Calcium 01/01/2021 9.7 8.4 - 10.4 mg/dL Final Magnesium 01/01/2021 2.1 1.6 - 2.3 mg/dL Final Phosphorus 01/01/2021 4.5 2.5 - 4.5 mg/dL Final Assessment/Plan: Addis Torres 20 y.o. female admitted for shortness of breath Shortness of breath/ Tachycardia - Continued feeling of shortness of breath associated with funny feeling in chest, usually associated with vomiting - Afebrile - CTA and EKG unremarkable at [place] [facility] on 12/29 - CXR unremarkable 12/30 - COVID neg - CT A/P 12/31: decreased amount of fluid and stranding in the retroperitoneum with a left ureteral stent remaining in place. No new abnormality - EKG 01/01: Sinus tachycardia - Cardiology consulted, mostly referred pain in the setting of recurrent nausea and vomiting with reflex HTN and tachycardia Ureteral injury - s/p L ureteral stent placement 12/22/20, replaced 12/26/20 - On IV ertapenem x2 wks Post-op care - Pain well controlled - Voiding spontaneously - Encourage ambulation and use of incentive spirometer - SCDs Further plan pending discussion with Dr. Escobedo. Rekha Rowland DO 01/01/2021, 5:52 AM Associated attestation - Madan Escobedo MD - 01/01/2021 12:54 PM EDT Patient rounded discussed with the residents. She is resting comfortably in bed. Still a missed a having episodes of vomiting, funny feeling in her chest. Workup to date has been negative. We've asked infectious disease to see if the antibiotic to me change to a different drug thinking that some ofher symptoms may be related to that. Otherwise will continue to monitor. * Jen Canas DO - 12/31/2020 11:04 AM EDT Notified by RN that patient experiencing chest tightness. Vitals obtained, as below. Evaluated patient at bedside. Sitting up in bed with emesis bag. States the feeling began while eating breakfast. Describes it as chest tightness, difficulty breathing, burning in her chest. Did not receive any medications recently. She took Ativan this morning at 0815. Pain is controlled. Vitals: 12/31/20 1056 BP: (!) 160/111 Pulse: 113 Resp: 16 Temp: 99.3 F (37.4 C) SpO2: 100% General: appears nauseated Heart: regular, tachycardic, no murmurs appreciated Lungs: CTA bilaterally Plan: EKG obtained - sinus rhythm at 111bpm Give Zofran and Pepcid now - could be element of GERD? If no resolution of symptoms could consider cardiology c/s Dr. Escobedo updated. * Rekha Rowland DO - 12/31/2020 5:58 AM EDT Images from the original note were not included. 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 female admitted for shortness of breath No acute events reported overnight. Patient was evaluated at the bedside this morning. Patient is no complaints currently but says thather shortness of breath and LLQ pain is intermittent. She says the pain on her left lower side started on admission. Patient says episodes of shortness of breath occur after she started to feel nauseous at home. She says she was told at [place] [facility] that her shortness of breath is due to anxiety. Vitals: Vitals: 12/30/20 1550 12/30/20 1937 12/30/20 2256 12/31/20 0416 BP: (!) 142/96 (!) 145/92 132/86 Pulse: 122 109 98 85 Resp: 16 16 Temp: 99.1 F (37.3 C) 98.8 F (37.1 C) 98.6 F (37 C) TempSrc: Temporal Temporal Temporal SpO2: 98% 99% 98% Weight: Height: Intake/Output: Last Shift: @[id number]@ Current Shift: I/O this shift: In: 1100 [P.O.:200; I.V.:900] Out: - Physical Exam: Gen: NAD, alert and cooperative HEENT: Normocephalic, atraumatic, EOMI, MMM Resp: CTABL, no WRR Card: RRR, no murmur Abd: Soft, non-distended, non-tender. No rebound tenderness, guarding, or rigidity. Active bowel sounds on auscultation Incisions: Well healing laparoscopic incisions Ext: No LE edema, no calf tenderness or swelling Medications: Current Facility-Administered Medications Medication Dose Route Frequency Provider Last Rate Last Admin phenazopyridine (PYRIDIUM) tablet 200 mg 200 mg Oral TID PRN Franco Adame MD tamsulosin (FLOMAX) capsule 0.4 mg 0.4 mg Oral Daily Franco Adame MD trospium (SANCTURA) tablet 20 mg 20 mg Oral Nightly Franco Adame MD acetaminophen (TYLENOL) tablet 650 mg 650 mg Oral Q6H Franco Adame MD 650 mg at 12/31/20 0123 heparin flush 100 UNIT/ML injection 250 Units 250 Units Intravenous 2 times per day Franco Adame MD 250 Units at 12/30/202008 heparin flush 100 UNIT/ML injection 250 Units 250 Units Intracatheter Q12H Franco Adame MD polyethylene glycol (GLYCOLAX) packet 17 g 17 g Oral Daily Franco Adame MD sodium chloride flush 0.9 % injection 10 mL 10 mL Intravenous 2 times per day Franco Adame MD 10 mL at 12/30/202008 0.9 % sodium chloride infusion 25 mL Intravenous PRN Franco Adame MD calcium carbonate (TUMS) chewable tablet 500 mg 500 mg Oral TID PRN Franco Adame MD docusate sodium (COLACE) capsule 100 mg 100 mg Oral BID PRN Franco Adame MD heparin flush 100 UNIT/ML injection 250 Units 250 Units Intracatheter PRN Franco Adame MD oxyCODONE (ROXICODONE) immediate release tablet 5 mg 5 mg Oral Q4H PRN Franco Adame MD Or oxyCODONE (ROXICODONE) immediate release tablet 10 mg 10 mg Oral Q4H PRN Franco Adame MD 10 mg at 12/30/20 1848 sodium chloride flush 0.9 % injection 10 mL 10 mL Intracatheter PRN Franco Adame MD sodium chloride flush 0.9 % injection 10 mL 10 mL Intravenous PRN Franco Adame MD sodium chloride flush 0.9 % injection 10 mL 10 mL Intravenous PRN Franco Adame MD diatrizoate meglumine-sodium (GASTROGRAFIN) 66-10 % solution 30 mL 30 mL Oral ONCE PRN Franco Adame MD 30 mL at 12/30/20 2352 ertapenem (INVanz) 1000 mg IVPB minibag 1,000 mg Intravenous Q24H Moose Stoddard DO 0.9 % sodium chloride infusion Intravenous Continuous Moose Stoddard DO 100 mL/hr at 12/31/20 0509New Bag at 12/31/20 0509 ondansetron (ZOFRAN-ODT) disintegrating tablet 4 mg 4 mg Oral Q6H PRN Moose Stoddard DO Or ondansetron (ZOFRAN) injection 4 mg 4 mg Intravenous Q6H PRN Moose Stoddard DO 4 mg at 12/30/20 2328 Diagnostics: Xr Chest Portable Result Date: 12/30/2020 Patient Name: ADDIS TORRES Diagnostic Radiology ACCESSION EXAM DATE/TIME PROCEDURE ORDERING PROVIDER [id number] 12/30/2020 18:36 EDT CR Chest Portable DO ADAME KATHERINE I CPT code 40411 Reason For Exam (CR Chest Portable) check picc placement Report CHEST PORTABLE CLINICAL INDICATION: check picc placement TECHNIQUE: Portable chest x-ray(s). COMPARISON: 2020. FINDINGS: Left PICC catheter tip projects over the SVC. Cardiac silhouette within normal limits. Lungs are grossly clear. No apparent pneumothorax. IMPRESSION: 1. Left PICC catheter placement and position, as reported. 2. Otherwise, unremarkable. Report Dictated on --- Final --- Dictated: 12/30/2020 6:36 pm Dictating Physician: MD VALE WENDELL Signed Date and Time: 12/30/2020 6:38 pm Signed by: MD VALE WENDELL Transcribed Date and Time: 12/30/2020 6:36 Ct Abdomen Pelvis W Wo Contrast Result Date: 12/31/2020 Patient Name: ADDIS TORRES Computed Tomography ACCESSION EXAM DATE/TIME PROCEDURE ORDERING PROVIDER [id number] 12/31/2020 02:[address] Abdomen/Pelvis w/ DO MARCIN FRANCO I + w/o Contrast CPT code 99607 Q9967 Reason For Exam (CT Abdomen/Pelvis w/ + w/o Contrast) Post-op pain Report CT ABDOMEN AND PELVIS WITH CONTRAST CLINICAL INDICATION: Endometrialcarcinoma. Postoperative pain with nausea and vomiting TECHNIQUE: Transaxial sequence through the abdomen and pelvis with 3 mm reconstruction following oral contrast with dynamic intravenous infusionof 75 mL of 370 mg% contrast media. Coronal and sagittal reconstructions included. Dose reduction was employed with automated exposure control. COMPARISON: Five days ago FINDINGS: Chest base: Normal.Liver: Normal size and contour. No focal lesion. Biliary tree: Normal caliber. Spleen: Normal. Adrenals: Normal. Pancreas: Normal. Kidneys: Symmetric contrast enhancement is noted. There is a left ureteral stent extending to the urinary bladder. There is however, some stranding in the retroperitoneum surrounding the lower ureter. No hydronephrosis is noted. No focal lesion. Free fluid: None. Retroperitoneal/mesenteric lymphadenopathy: None. Aorta: Normal caliber. Bowel: Normal caliber. Normal ap pendix Abdominal wall: Normal. Pelvic organs/viscera: There is a decreased amount of presacral Computed Tomography Report ill-defined increased attenuation and fluid attenuation since five days ago. Relatively large ovaries are noted. The uterus is absent. Pelvic lymphadenopathy: None. Osseous structures: Normal. IMPRESSION: 1. Decreased amount of fluid and stranding in the retroperitoneum with aleft ureteral stent remains in place 2. No new abnormality. Report Dictated on Workstation: [facility] --- Final --- Dictated: 12/31/2020 3:28 am Dictating Physician: MD OSBORN JEFFREY Signed Date and Time: 12/31/2020 3:44 am Signed by: MD OSBORN JEFFREY Transcribed Date and Time: 12/31/2020 3:28 Labs: Admission on 12/30/2020 Component Date Value Ref Range Status WBC 12/30/2020 11.5* 3.6 - 10.7 10*3/uL Final RBC 12/30/2020 4.55 3.80 - 5.20 10*6/uL Final Hemoglobin 12/30/2020 11.9 11.7 - 16.0 g/dL Final Hematocrit 12/30/2020 36.4 35.0 - 47.0 % Final MCV 12/30/2020 79.9 79.0 - 98.0 fL Final MCH 12/30/2020 26.0 26.0 - 34.0 pg Final MCHC 12/30/2020 32.6 32.0 - 36.0 % Final RDW 12/30/2020 17.7* 11.5 - 14.5 % Final Platelets 12/30/2020 336 140 - 440 10*3/uL Final MPV 12/30/2020 6.8* 7.4 - 10.4 fL Final Granulocytes % 12/30/2020 77.6 40.0 - 80.0 % Final Lymphocyte % 12/30/2020 14.5* 20.0 - 40.0 % Final Monocytes 12/30/2020 4.9 2.0 - 10.0 % Final Eosinophils 12/30/2020 2.4 1.0 - 6.0 % Final Basophils 12/30/2020 0.6 0.0 - 2.0 % Final Absolute Neut # 12/30/2020 8.9* 1.8 - 7.0 10*3/uL Final Absolute Lymph # 12/30/2020 1.7 1.0 - 4.3 10*3/uL Final Absolute [place] # 12/30/2020 0.6 0.0 - 0.8 10*3/uL Final Absolute Eos # 12/30/2020 0.3 0.0 - 0.5 10*3/uL Final Absolute Baso # 12/30/2020 0.1 0.0 - 0.2 10*3/uL Final Sodium 12/30/2020 139 135 - 145 mmol/L Final Potassium 12/30/2020 3.6 3.5 - 5.1 mmol/L Final Chloride 12/30/2020 105 98 - 107 mmol/L Final CO2 12/30/2020 24 22 - 30 mmol/L Final Anion Gap 12/30/2020 11 3 - 13 mmol/L Final Glucose 12/30/2020 133* 70 - 100 mg/dL Final BUN 12/30/2020 10 7 - 20 mg/dL Final CREATININE 12/30/2020 0.69 0.52 - 1.25 mg/dL Final eGFR 12/30/2020 >90.0 >60 mL/min Final EGFR IF NonAfrican [place]ian 12/30/2020 >90.0 >60 mL/min Final Comment: KDIGO guidelines provide the following GFR categories: Stage GFR(ml/min/1.73 m2) Terms G1 >=90 Normal or high G2 60-89 Mildly decreased* G3a 45-59 Mildly to moderately decreased G3b 30-44 Moderately to severely decreased G4 15-29 Severely decreased G5 <15 Kidney failure *Relative to young adult level. In the absence of evidence of kidney damage, neither GFR category G1 nor G2 fulfill the criteria for CKD. The CKD-EPI equation is validated in individuals 18 years of age and older. Currently the best equation for estimating glomerular filtration rate (GFR) from serum creatinine in children is the Bedside Boyer equation. It is less accurate in patients with extremes of muscle mass, restriction of dietary protein, ingestion of creatine, extra-renal metabolism of creatinine, or treatment with medications that affect renal tubular creatinine secretion. Calcium 12/30/2020 9.9 8.4 - 10.4 mg/dL Final Albumin,Serum 12/30/2020 4.3 3.5 - 5.0 g/dL Final Total Protein 12/30/2020 8.0 6.3 - 8.2 g/dL Final Total Bilirubin 12/30/2020 0.3 0.2 - 1.3 mg/dL Final Alkaline Phosphatase 12/30/2020 54 38 - 126 U/L Final ALT 12/30/2020 21 0 - 34 U/L Final Comment: The ALT test is performed by an updated assay method. Please note that the reference intervals have been changed and are now sex specific. AST 12/30/2020 28 15 - 46 U/L Final Magnesium 12/30/2020 2.0 1.6 - 2.3 mg/dL Final Phosphorus 12/30/2020 3.5 2.5 - 4.5 mg/dL Final Respiratory Panel Molecular, with * 12/30/2020 Final Value:NEGATIVE: No targets were detected by the [employer] Upper Respiratory Pathogens PCR Panel. _ Expected Result: Not Detected The [employer] Upper Respiratory Pathogens PCR Panel can detect the following targets: SARS-CoV-2, Adenovirus, Coronavirus 229E, Coronavirus HKU1, Coronavirus NL63, Coronavirus OC43, Human Metapneumovirus, Human Rhinovirus/Enterovirus, Influenza A, Influenza B, Parainfluenza Virus 1, Parainfluenza Virus 2, Parainfluenza Virus 3, Parainfluenza Virus 4, Respiratory Syncytial Virus, Bordetella pertussis, Bordetella parapertussis, Chlamydia pneumoniae, Mycoplasma pneumoniae. Negative results do not preclude SARS-CoV-2 infection and should not be used as the sole basis for treatment or other patient management decisions. This assay was developed by [employer] and distributed under an Emergency Use Authorization (EUA) granted by the FDA for the qualitative detection of SARS-CoV-2 nucleic acid. Provider and patient fact sheets can be found at https://www.fda. gov/media/109221/download and https://www.fda.gov/media/565256/download. Assessment/Plan: Addis Torres 20 y.o. female admitted for shortness of breath Shortness of breath - Sudden shortness of breath associated with nausea and feeling like she will be sick. Lasts minutes and resolves - Afebrile - Tachycardia improving - Heart and lung exam unremarkable - CTA and EKG unremarkable at [place] [facility] on 12/29 - CXR unremarkable 12/30 - COVID neg - CT A/P 12/31: decreased amount of fluid and stranding in the retroperitoneum with a left ureteral stent remaining in place. No new abnormality Ureteral injury - s/p L ureteral stent placement 12/22/20, replaced 12/26/20 - Continue home IV ertapenem as planned x2 wks Post-op care - Pain well controlled - Voiding spontaneously - Encourage ambulation and use of incentive spirometer - SCDs Further plan pending discussion with Dr. Escobedo. Rekha Rowland DO 12/31/2020, 5:59 AM Associated attestation - Madan Escobedo MD - 12/31/2020 7:27 AM EDT See my H&P dictated today documented in this [facility] Work Phone: [phone] History of Present illness Narrative* Marjorie Sauceda DTR - 12/28/2020 12:24 PM EDT Nutrition update completed. Chart reviewed. Patient to be monitored and followed by the diet cable television line technician. * Gil Gutierrez DO - 12/28/2020 7:02 AM EDT UROLOGY PROGRESS NOTE PATIENT NAME: Addis Torres DATE OF : 2000 ADMISSION DATE: 12/21/2020 4:40 PM TODAY'S DATE: 12/28/2020 Subjective POD 2 L ureteral stent exchange Patient feels much better this AM and overnight; endorses less pelvic/flank pain Minimal nausea overnight, no emesis Voiding Passing gas regularly BM yesterday Tolerating PO intake. Received PICC yesterday Objective VS: BP 138/83 Pulse 92 Temp 98.3 F (36.8 C) (Temporal) Resp 18 Ht 5' 9 (1.753 m) Wt 207 lb (93.9 kg) SpO2 100% BMI 30.57 kg/m Vitals: 12/28/20 0528 BP: 138/83 Pulse: 92 Resp: 18 Temp: 98.3 F (36.8 C) SpO2: 100% I & O - 24hr: Intake/Output Summary (Last 24 hours) at 12/28/2020 0702 Last data filed at 12/27/2020 2233 Gross per 24 hour Intake Output 1000 ml Net -1000 ml Physical Exam: General: Neck: Resp: Abdomen: No acute distress Supple Normal effort Soft, non-tender, nondistended : Minimal suprapubic TTP, minimal L flank pain. Skin: Skin color, texture, turgor normal, no rashes or lesions Labs and Imaging Studies Labs: CBC: Recent Labs 12/26/20 0048 12/27/20 0917 12/28/20 0559 WBC 10.0 13.7* 12.9* HGB 10.9* 13.1 10.7* HCT 33.5* 40.5 33.7* MCV 80.3 80.9 81.0 PLT 269 379 321 BMP: Recent Labs 12/27/20 0917 NA 138 K 4.2 CL 103 CO2 25 BUN 14 CREATININE 0.76 Magnesium: No results found for: MG Phosphate: No results found for: PHOS PT/INR: Recent Labs 12/26/20 1349 PROTIME 11.4 INR 1.1 U/A: Lab Results Component Value Date LEUKOCYTESUR Negative 12/22/2020 GLUCOSEU Normal 12/22/2020 Urine Culture: Component Value Date/Time LABURIN Escherichia coli (A) 12/22/2020 1326 LABURIN 12/22/2020 1326 10,000-50,000 CFU/ml This phenotype is suggestive of an ESBL-producing organism. Treatment with beta-lactam antibiotics other than carbapenems may not be effective. An ID consult may be warranted. Blood Culture: Imaging Studies: Assessment and Plan ASSESMENT: 20 y.o. female with distal L ureteral injury during robotic hysterectomy - cysto, L ureteral stent placement 12/22 after failed PNT placement - cysto, L ureteral stent exchange 12/27 for malpositioned stent PLAN: - maintain ureteral stent for now - patient on trospium for bladder spasms - leukocytosis relatively unchanged - bowel regimen per primary team; patient currently on miralax, colace - discussed abdominal fluid collection with attending, IR who does not believe it is amenable to drainage and thinks that fluid is shifting within the abdomen - patient continues to be afebrile, monitor tachycardia - would recommend drain placement if patient becomes febrile or if leukocytosis, creatinine worsens - ok for d/c from urologic perspective; PICC/ABX per primary/ID - will discuss with attending Gil Gutierrez DO Urology, PGY-3 0851 Associated attestation - Oneal Sheth MD - 12/28/2020 10:14 AM EDT I agree with residents assessment and plan. This patient was seen and examined by me personally. I performed a history and physical examination of the patient and discussed the management with the resident. * Rekha Rowland DO - 12/28/2020 5:36 AM EDT Images from the original note were not included. OVERHEAD DISTRIBUTION ENGINEER/ONC Progress Note Date: 12/28/2020 Time: 5:36 AM Addis Torres 20 y.o. female admitted for ureteral injury No acute events reported overnight. Patient was evaluated at the bedside this morning. Patient complains of soreness on her arm from PICC line placement yesterday evening but otherwise comfortable. She denies any abdominal or back pain. Urinating without difficulty. No fevers or chills. Vitals: Vitals: 12/27/20 1821 12/27/20 1917 12/27/20 2319 12/28/20 0528 BP: 139/86 (!) 154/98 (!) 153/96 138/83 Pulse: 108 117 95 92 Resp: 18 18 18 18 Temp: 99.3 F (37.4 C) 98.2 F (36.8 C) 98.3 F (36.8 C) 98.3 F (36.8 C) TempSrc: Temporal Temporal Temporal Temporal SpO2: 96% 100% 100% 100% Weight: Height: Physical Exam: Gen: NAD, alert and cooperative HEENT: Normocephalic, atraumatic, EOMI, MMM Abd: Soft, non-distended, non-tender. No rebound tenderness, guarding, or rigidity. Active bowel sounds on auscultation Incisions: C/D/I Ext: No LE edema, no calf tenderness or swelling Medications: Current Facility-Administered Medications Medication Dose Route Frequency Provider Last Rate Last Admin acetaminophen (TYLENOL) tablet 650 mg 650 mg Oral Q6H Rekha Chadwick KashifDO 650 mg at 12/27/202015 lidocaine 1 % injection 5 mL 5 mL Intradermal Once Ruth Ann Richards MD sodium chloride flush 0.9 % injection 10 mL 10 mL Intravenous 2 times per day Ruth Ann Richards MD sodium chloride flush 0.9 % injection 10 mL 10 mL Intravenous 2 times per day Ruth Ann Richards MD 10 mL at 12/27/202015 sodium chloride flush 0.9 % injection 10 mL 10 mL Intravenous PRN Ruth Ann Richards MD heparin flush 100 UNIT/ML injection 250 Units 250 Units Intravenous 2 times per day Ruth Ann Richards MD 250 Units at 12/27/202015 heparin flush 100 UNIT/ML injection 250 Units 250 Units Intravenous PRN Ruth Ann Richards MD sodium chloride flush 0.9 % injection 10 mL 10 mL Intracatheter Q12H Yamilet Acierno TRAFFIC MANAGER - DRIP MOLDER 10 mL at 12/27/20 1700 heparin flush 100 UNIT/ML injection 250 Units 250 Units Intracatheter Q12H Yamilet Acierno, TRAFFIC MANAGER - DRIP MOLDER 250 Units at 12/27/20 1700 sodium chloride flush 0.9 % injection 10 mL 10 mL Intracatheter PRN Yamilet Max APRN - DRIP MOLDER heparin flush 100 UNIT/ML injection 250 Units 250 Units Intracatheter PRN Yamilet Acierthania TRAFFIC MANAGER - DRIP MOLDER iopamidol (ISOVUE-370) 76 % injection 75 mL 75 mL Intravenous ONCE PRN Kodak Ferro MD ertapenem (INVanz) 1000 mg IVPB minibag 1,000 mg Intravenous Q24H Kodak Ferro MD Stopped at 12/27/20 1500 calcium carbonate (TUMS) chewable tablet 500 mg 500 mg Oral TID PRN Kodak Ferro MD 500 mg at 12/24/20 2131 tamsulosin (FLOMAX) capsule 0.4 mg 0.4 mg Oral Daily Kodak Ferro MD 0.4 mg at 12/27/20 0806 phenazopyridine (PYRIDIUM) tablet 200 mg 200 mg Oral TID PRN Kodak Ferro MD 200 mg at 12/27/20 0301 trospium (SANCTURA) tablet 20 mg 20 mg Oral Daily Kodak Ferro MD 20 mg at 12/27/20 0803 polyethylene glycol (GLYCOLAX) packet 17 g 17 g Oral Daily Kodak Ferro MD 17 g at 12/26/20 1127 sodium chloride flush 0.9 % injection 10 mL 10 mL Intravenous 2 times per day Kodak Ferro MD 10 mL at 12/27/20 0806 sodium chloride flush 0.9 % injection 10 mL 10 mL Intravenous PRN Kodak Ferro MD 0.9 % sodium chloride infusion 25 mL Intravenous PRN Kodak Ferro MD docusate sodium (COLACE) capsule 100 mg 100 mg Oral BID PRN Kodak Ferro MD 100 mg at 12/27/20 0804 ondansetron (ZOFRAN-ODT) disintegrating tablet 4 mg 4 mg Oral Q8H PRN Kodak Ferro MD 4 mg at 12/22/20 0011 Or ondansetron (ZOFRAN) injection 4 mg 4 mg Intravenous Q6H PRN Kodak Ferro MD 4 mg at 12/26/20 0343 oxyCODONE (ROXICODONE) immediate release tablet 5 mg 5 mg Oral Q4H PRN Kodak Ferro MD 5 mg at 12/25/20 0809 Or oxyCODONE (ROXICODONE) immediate release tablet 10 mg 10 mg Oral Q4H PRN Kodak Ferro MD 10 mg at12/27/20 1520 Diagnostics: Ct Abdomen Pelvis W Wo Contrast Result Date: 12/22/2020 Patient Name: ADDIS TORRES Computed Tomography ACCESSION EXAM DATE/TIME PROCEDURE ORDERING PROVIDER [id number] 12/22/2020 00:[address] Abdomen/Pelvis w/ [id number] -COLIN, + w/o Contrast JENNIFER CPT code 34579 Q9967 Reason For Exam (CT Abdomen/Pelvis w/ + w/o Contrast) possible left ureter injury, new onset LLQ pain, POD #3 s/p Robotic hysterectomy Report CT ABDOMEN AND PELVIS WITHOUT AND WITH CONTRAST - INCLUDING 3D UROGRAPHY CLINICAL INDICATION: Robotic hysterectomy with left lower quadrant pain and suspected ureteral injury Scan Parameters: Transaxial sequence through the abdomen and pelvis initially without contrast with low-dose technique. Karin ent received some oral contrast as well. Following intravenous injection of 38.5 mL of 350 mg% contrast followed by three minute delay and additional injection of the remaining 38.5 mL, post contrastsequence was performed. 15 minute delayed imaging was also performed.. Multiplanar and 3D MIP reconstruction was performed by the radiologist on an independent workstation. Dose reduction was employed with automated exposure control. COMPARISON: None. FINDINGS: Chest base: Atelectasis noted at the lung bases. There is no pleural fluid. Liver: Normal size and contour. No focal lesion. Biliary tree: Normal caliber. Spleen: Normal. Adrenals: Normal. Pancreas: Normal Kidneys/Collecting systems: No calculi are identified in the proximal collecting systems. Symmetric contrast excretion without evidence of hydronephrosis. The right ureter continues into the urinary bladder. There is irregular contrast collection extending from the level of the left mid ureter across the midline to the right retroperitoneal space on the three-minute delayed sequence and there is a much larger contrast collection throughout the region on the 15 minute delayed sequence. There is extensive nonenhanced retroperitoneal fluid Computed Tomography Report attenuation within the mid abdomen extending into the pelvis.The largest collection is noted in the presacral space with an AP dimension of 3 cm. There is no enhancement within the left distal ureter. Free fluid: There is only a small amount of free intraperito herminio fluid the left paracolic gutter. Retroperitoneal/mesenteric lymphadenopathy: None. Aorta: Normal caliber. Bowel: Normal caliber. Abdominal wall: Normal. Bladder: No filling defects are identified. Wall thickness is normal. Other pelvic organs/viscera: Uterus is absent. There are several gas emma bles in the region surrounding the bladder related to surgery. No mass is identified. Pelvic lymphadenopathy: None. Osseous structures: Normal. IMPRESSION: Complete disruption of the left mid ureter with active flow of urine into the retroperitoneal space with extensive retroperitoneal fluid extending to the pelvis. CRITICAL TEST RESULT COMMUNICATION: A message was sent via [employer] to JENNIFER SZYMANSKI on 12/22/2020 at 1:38 AM EDT. Report Dictated on Workstation: [id number] --- Final ---Dictated: 12/22/2020 1:38 am Dictating Physician: MD OSBORN JEFFREY Signed Date and Time: 12/22/2020 1:50 am Signed by: MD OSBORN JEFFREY Transcribed Date and Time: 12/22/2020 1:38 Assessment/Plan: Addis Torres 20 y.o. female admitted for ureteral injury Left ureteral injury - POD #10 s/p RTLH, BS for endometrial cancer - Stage 1A - Urology consulted, appreciate care - Left ureteral stent replaced on 12/26 - Asymptomatic - CBC, BMP pending Tachycardia - Resolved overnight - VSS stable, afebrile Bacteruria - ID consulted, appreciate recs - Afebrile - PICC line placed yesterday for homegoing IV ertapenem, per ID to continue for 2 weeks - Ok for d/c when abx set up per ID Adjustment related depression - Mood stable Further plan pending discussion with Dr. Escobedo. Rekha Rowland DO 12/28/2020, 5:36 AM Associated attestation - Madan Escobedo MD - 12/28/2020 3:24 PM EDT Patient rounded with the residents. She is feeling much better. No fevers. We'll plan to discharge to home on IV antibiotics. * Ruth Ann Richards MD - 12/27/2020 11:10 AM EDT Images from the original note were not included. [facility] - Infectious Diseases Attending Progress Note Subjective: Following for complicated UTI, urinoma. Pt s/p cystoscopy, retrograde pyelography and removal and replacement of her left ureteral stent 12/26. Pt again tearful. Willing to get picc line, but requesting her mom be able to come in. Denies LLQ pain/pressure since her stent was changed. No nausea, vomiting. No itching, rashes. Objective: Vitals: Patient Vitals for the past 24 hrs: BP Temp Temp src Pulse Resp SpO2 Height Weight 12/27/20 0429 (!) 130/91 98.7 F (37.1 C) Temporal 108 18 100 % 12/27/20 0300 (!) 145/95 98.7 F (37.1 C) Oral 115 16 96 % 12/26/20 2340 134/87 99.2 F (37.3 C) Temporal 119 18 100 % 12/26/20 1922 (!) 141/92 97.7 F (36.5 C) Temporal 110 20 95 % 12/26/20 1845 (!) 147/95 97.1 F (36.2 C) Temporal 114 16 93 % 12/26/20 1830 (!) 157/93 110 16 94 % 12/26/20 1815 (!) 151/88 123 16 95 % 12/26/20 1810 (!) 149/97 99.5 F (37.5 C) Temporal 129 16 100 % 12/26/20 1702 5' 9 (1.753 m) 207 lb (93.9 kg) Physical Exam Vitals signs and nursing note reviewed. Constitutional: General: She is not in acute distress. Appearance: Normal appearance. She is obese. She is not ill-appearing, toxic- appearing or diaphoretic. HENT: Head: Normocephalic and atraumatic. Right Ear: External ear normal. Left Ear: External ear normal. Nose: Nose normal. No congestion or rhinorrhea. Eyes: General: No scleral icterus. Right eye: No discharge. Left eye: No discharge. Neck: Musculoskeletal: Normal range of motion. No neck rigidity. Cardiovascular: Rate and Rhythm: Normal rate and regular rhythm. Heart sounds: Normal heart sounds. No murmur. Pulmonary: Effort: Pulmonary effort is normal. No respiratory distress. Breath sounds: Normal breath sounds. No wheezing or rhonchi. Abdominal: General: Bowel sounds are normal. There is no distension. Palpations: Abdomen is soft. Tenderness: There is no abdominal tenderness. There is no guarding or rebound. Hernia: No hernia is present. Musculoskeletal: Normal range of motion. General: No swelling or tenderness. Right lower leg: No edema. Left lower leg: No edema. Skin: General: Skin is warm and dry. Coloration: Skin is not jaundiced. Findings: No bruising, erythema or rash. Neurological: General: No focal deficit present. Mental Status: She is alert and oriented to person, place, and time. Mental status is at baseline. Sensory: No sensory deficit. Psychiatric: Mood and Affect: crying, anxious Behavior: Behavior normal. Thought Content: Thought content normal. Judgment: Judgment normal. Labs: Component Value Date/Time NA 138 12/27/2020 0917 K 4.2 12/27/2020 0917 CL 103 12/27/2020 0917 CO2 25 12/27/2020 0917 BUN 14 12/27/2020 0917 CREATININE 0.76 12/27/2020 0917 GLUCOSE 148 (H) 12/27/2020 09 CALCIUM 10.1 12/27/2020 0917 PROT 7.3 12/21/2020 1709 LABALBU 4.0 12/21/2020 1709 BILITOT 0.6 12/21/2020 1709 ALKPHOS 27 (L) 12/21/2020 1709 AST 54 (H) 12/21/2020 1709 ALT 15 12/21/2020 1709 PROCAL <0.10 12/21/20202033 Component Value Date/Time WBC 13.7 (H) 12/27/2020 0917 HGB 13.1 12/27/2020 0917 HCT 40.5 12/27/2020 0917 PLT 379 12/27/2020 0917 GRANULOCYTES 91.7 (H) 12/27/2020 0917 LYMPHOPCT 5.3 (L) 12/27/2020 0917 MONOPCT 2.8 12/27/2020 0917 LABEOS 0.0 (L) 12/27/2020 0917 BASOPCT 0.2 12/27/2020 0917 NEUTROABS 12.6 (H) 12/27/2020 0917 4/13 surg path A. 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 BILATERAL UNREMARKABLE FALLOPIAN TUBES. Comment: The entire endometrial cavity shows polypoid endometrium. Several sections also contain endomerioid adenocarcinoma with squamous differentiation. Overall, the tumor has a very exophytic growth pattern, and after reviewing numerous sections the maximum depth of invasion is 5 mm (17% invasion). Extensive background hyperplasia with squamous metaplasia and hormone changes are present. B. SENTINEL LYMPH NODE, RIGHT PELVIC, BIOPSY - SIX LYMPH NODES, NEGATIVE FOR METASTATIC CARCINOMA (0/6). C. SENTINEL LYMPH NODE, LEFT PELVIC, BIOPSY - THREE LYMPH NODES, NEGATIVE FOR METASTATIC CARCINOMA (0/3). Micro: 12/22 urine 10-50K ESBL E coli S kain, cipro, gent amikacin Lines: PIV Radiography/Echo/Other: 12/26 CT a/p 1. Interval increase in size of the retroperitoneal/presacral rim-enhancing fluid collection with foci of gas since the prior study of 12/24/2020. Although this may represent a urinoma, superimposed infectious/abscess is also considered. 2. Similar size of the retroperitoneal rim-enhancing fluid collection adjacent to the left psoas surrounding the left ureter. 3. Small focus of gas within the proximal left ureter superior to the ureteral stent. This is nonspecific, however infective pyelitis is considered. 4. Severely enlarged bilateral ovaries, similar to prior studies. 12/26 CTA chest 1. No pulmonary embolus identified. 2. Mosaic attenuation the lungs, which can be seen with small vessel or small airways disease. Computed Tomography Report 3. A 9 mm subpleural bleb is present within the left lower lobe. 12/24 CT a/p Improvement but incomplete resolution of retroperitoneal fluid when compared to prior study two days previous. Some loculated air bubbles within it probably related to recent instrumentation. No other interval change when compared to prior study. 12/22 CT a/p Complete disruption of the left mid ureter with active flow of urine into the retroperitoneal space with extensive retroperitoneal fluid extending to the pelvis. 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; urine culture with ESBL E coli Plan: - continue ertapenem x 2 weeks - PICC ordered - d/w TCC who confirmed with Nursing Exchange Administrator that pt's mom is allowed to come in today for PICC placement - OPAT in bedside chart - ok to discharge when abx set up - d/w primary, TCC, RN, PICC team Ruth Ann Richards MD * Tye Garcia MD - 12/27/2020 7:33 AM EDT UROLOGY PROGRESS NOTE PATIENT NAME: Addis Torres DATE OF : 2000 ADMISSION DATE: 12/21/2020 4:40 PM TODAY'S DATE: 12/27/2020 Subjective POD 1 L ureteral stent exchange Patient endorses some bladder irritation this AM Minimal nausea overnight, no emesis Has voided since surgery Passing gas regularly BM a few days ago. Tolerating PO intake. Objective VS: BP (!) 130/91 Pulse 108 Temp 98.7 F (37.1 C) (Temporal) Resp 18 Ht 5' 9 (1.753 m) Wt207 lb (93.9 kg) SpO2 100% BMI 30.57 kg/m Vitals: 12/27/20 0429 BP: (!) 130/91 Pulse: 108 Resp: 18 Temp: 98.7 F (37.1 C) SpO2: 100% I & O - 24hr: Intake/Output Summary (Last 24 hours) at 12/27/2020 0734 Last data filed at 12/27/2020 0659 Gross per 24 hour Intake 500 ml Output 705 ml Net -205 ml Physical Exam: General: Neck: Resp: Abdomen: No acute distress Supple Normal effort Soft, non-tender, nondistended : Moderate suprapubic TTP, minimal L flank pain. Skin: Skin color, texture, turgor normal, no rashes or lesions Labs and Imaging Studies Labs: CBC: Recent Labs 12/25/20 0538 12/26/20 0048 WBC 12.1* 10.0 HGB 10.1* 10.9* HCT 31.3* 33.5* MCV 81.6 80.3 PLT 205 269 BMP: Recent Labs 12/25/20 0538 NA 138 K 3.2* CL 112* CO2 22 BUN 8 CREATININE 0.63 Magnesium: No results found for: MG Phosphate: No results found for: PHOS PT/INR: Recent Labs 12/26/20 1349 PROTIME 11.4 INR 1.1 U/A: Lab Results Component Value Date LEUKOCYTESUR Negative 12/22/2020 GLUCOSEU Normal 12/22/2020 Urine Culture: Component Value Date/Time LABURIN Escherichia coli (A) 12/22/2020 1326 LABURIN 12/22/2020 1326 10,000-50,000 CFU/ml This phenotype is suggestive of an ESBL-producing organism. Treatment with beta-lactam antibiotics other than carbapenems may not be effective. An ID consult may be warranted. Blood Culture: Imaging Studies: Assessment and Plan ASSESMENT: 20 y.o. female with distal L ureteral injury during robotic hysterectomy - cysto, L ureteral stent placement 12/22 after failed PNT placement - cysto, L ureteral stent exchange 12/27 for malpositioned stent PLAN: - maintain ureteral stent for now - patient on trospium for bladder spasms - check PVR this AM - follow up AM labs - bowel regimen per primary team; patient currently on miralax, colace - discussed abdominal fluid collection with attending, IR who does not believe it is amenable to drainage and thinks that fluid is shifting within the abdomen - patient continues to be afebrile, monitor tachycardia - would recommend drain placement if patient becomes febrile or if leukocytosis, creatinine worsens Gil Gutierrez DO Urology, PGY-3 0851 Discussed with the urology resident. I concur with the assessment and plan. Tye Garcia M.D. 12/27/2020 * Rekha Rowland DO - 12/27/2020 5:53 AM EDT Images from the original note were not included. [employer]ION ENGINEER/ONC Progress Note Date: 12/27/2020 Time: 5:54 AM Addis Torers 20 y.o. female admitted for ureteral injury No acute events reported overnight. Patient was evaluated at the bedside this morning. She had no acute complaints. Patient says she has left sided discomfort that feels the same as when they placed the first stent. She also still feels like her heart is racing but no shortness of breath, chest pain, fevers or chills. Vitals: Vitals: 12/26/20 1922 12/26/20 2340 12/27/20 0300 12/27/20 0429 BP: (!) 141/92 134/87 (!) 145/95 (!) 130/91 Pulse: 110 119 115 108 Resp: 18 16 18 Temp: 97.7 F (36.5 C) 99.2 F (37.3 C) 98.7 F (37.1 C) 98.7 F (37.1 C) TempSrc: Temporal Temporal Oral Temporal SpO2: 95% 100% 96% 100% Weight: Height: Intake/Output: Last Shift: @[id number]@ Current Shift: No intake/output data recorded. Physical Exam: Gen: NAD, alert and cooperative HEENT: Normocephalic, atraumatic, EOMI, MMM Resp: CTABL, no WRR Card: RRR, no murmur Abd: Soft, non-distended, non-tender. No rebound tenderness, guarding, or rigidity. Active bowel sounds on auscultation Incisions: C/D/I Ext: No LE edema, no calf tenderness or swelling Medications: Current Facility-Administered Medications Medication Dose Route Frequency Provider Last Rate Last Admin iopamidol (ISOVUE-370) 76 % injection 75 mL 75 mL Intravenous ONCE PRN Kodak Ferro MD ertapenem (INVanz) 1000 mg IVPB minibag 1,000 mg Intravenous Q24H Kodak Ferro MD Stopped at 12/26/20 1530 calcium carbonate (TUMS) chewable tablet 500 mg 500 mg Oral TID PRN Kodak Ferro MD 500 mg at 12/24/20 2131 tamsulosin (FLOMAX) capsule 0.4 mg 0.4 mg Oral Daily Kodak Ferro MD 0.4 mg at 12/26/20 0804 phenazopyridine (PYRIDIUM) tablet 200 mg 200 mg Oral TID PRN Kodak Ferro MD 200 mg at 12/27/20 0301 trospium (SANCTURA) tablet 20 mg 20 mg Oral Daily Kodak Ferro MD 20 mg at 12/26/20 0804 polyethylene glycol (GLYCOLAX) packet 17 g 17 g Oral Daily Kodak Ferro MD 17 g at 12/26/20 1127 sodium chloride flush 0.9 % injection 10 mL 10 mL Intravenous 2 times per day Kodak Ferro MD 10 mL at 12/26/202020 sodium chloride flush 0.9 % injection 10 mL 10 mL Intravenous PRN Kodak Ferro MD 0.9 % sodium chloride infusion 25 mL Intravenous PRN Kodak Ferro MD docusate sodium (COLACE) capsule 100 mg 100 mg Oral BID PRN Kodak Ferro MD 100 mg at 12/24/20 1214 acetaminophen (TYLENOL) tablet 650 mg 650 mg Oral Q4H PRN Kodak Ferro MD 650 mg at 12/25/20 0808 ondansetron (ZOFRAN-ODT) disintegrating tablet 4 mg 4 mg Oral Q8H PRN Kodak Ferro MD 4 mg at 12/22/20 0011 Or ondansetron (ZOFRAN) injection 4 mg 4 mg Intravenous Q6H PRN Kodak Ferro MD 4 mg at 12/26/20 0343 oxyCODONE (ROXICODONE) immediate release tablet 5 mg 5 mg Oral Q4H PRN Kodak Ferro MD 5 mg at 12/25/20 0809 Or oxyCODONE (ROXICODONE) immediate release tablet 10 mg 10 mg Oral Q4H PRN Kodak Ferro MD 10 mg at12/27/20 0301 Diagnostics: Ct Abdomen Pelvis W Wo Contrast Result Date: 12/22/2020 Patient Name: ADDIS TORRES Computed Tomography ACCESSION EXAM DATE/TIME PROCEDURE ORDERING PROVIDER [id number] 12/22/2020 00:[address] Abdomen/Pelvis w/ [id number] -COLIN, + w/o Contrast JENNIFER CPT code 22680 Q9967 Reason For Exam (CT Abdomen/Pelvis w/ + w/o Contrast) possible left ureter injury, new onset LLQ pain, POD #3 s/p Robotic hysterectomy Report CT ABDOMEN AND PELVIS WITHOUT AND WITH CONTRAST - INCLUDING 3D UROGRAPHY CLINICAL INDICATION: Robotic hysterectomy with left lower quadrant pain and suspected ureteral injury Scan Parameters: Transaxial sequence through the abdomen and pelvis initially without contrast with low-dose technique. Karin ent received some oral contrast as well. Following intravenous injection of 38.5 mL of 350 mg% contrast followed by three minute delay and additional injection of the remaining 38.5 mL, post contrastsequence was performed. 15 minute delayed imaging was also performed.. Multiplanar and 3D MIP reconstruction was performed by the radiologist on an independent workstation. Dose reduction was employed with automated exposure control. COMPARISON: None. FINDINGS: Chest base: Atelectasis noted at the lung bases. There is no pleural fluid. Liver: Normal size and contour. No focal lesion. Biliary tree: Normal caliber. Spleen: Normal. Adrenals: Normal. Pancreas: Normal Kidneys/Collecting systems: No calculi are identified in the proximal collecting systems. Symmetric contrast excretion without evidence of hydronephrosis. The right ureter continues into the urinary bladder. There is irregular contrast collection extending from the level of the left mid ureter across the midline to the right retroperitoneal space on the three-minute delayed sequence and there is a much larger contrast collection throughout the region on the 15 minute delayed sequence. There is extensive nonenhanced retroperitoneal fluid Computed Tomography Report attenuation within the mid abdomen extending into the pelvis.The largest collection is noted in the presacral space with an AP dimension of 3 cm. There is no enhancement within the left distal ureter. Free fluid: There is only a small amount of free intraperito herminio fluid the left paracolic gutter. Retroperitoneal/mesenteric lymphadenopathy: None. Aorta: Normal caliber. Bowel: Normal caliber. Abdominal wall: Normal. Bladder: No filling defects are identified. Wall thickness is normal. Other pelvic organs/viscera: Uterus is absent. There are several gas emma bles in the region surrounding the bladder related to surgery. No mass is identified. Pelvic lymphadenopathy: None. Osseous structures: Normal. IMPRESSION: Complete disruption of the left mid ureter with active flow of urine into the retroperitoneal space with extensive retroperitoneal fluid extending to the pelvis. CRITICAL TEST RESULT COMMUNICATION: A message was sent via [employer] to JENNIFER COLIN on 12/22/2020 at 1:38 AM EDT. Report Dictated on Workstation: [id number] --- Final ---Dictated: 12/22/2020 1:38 am Dictating Physician: MD OSBORN JEFFREY Signed Date and Time: 12/22/2020 1:50 am Signed by: MD OSBORN JEFFREY Transcribed Date and Time: 12/22/2020 1:38 Xa Special Procedure Result Date: 12/22/2020 Patient Name: ADDIS TORRES Special Procedures ACCESSION EXAM DATE/TIME PROCEDURE ORDERING PROVIDER [id number] 12/22/2020 11:00 EDT XA Special Angiography [id number] -PAWEL GUAN Procedure Reason For Exam (XA Special Angiography Procedure) Left nephrostomy tubeReport CLINICAL HISTORY: Ureteral transection Procedures: 1. Intravenous pyelogram 2. Attempted left nephrostomy tube placement Physician: Dr. Armendariz MEDICATIONS: Local lidocaine, 4 mg Versed IV, 200 mcg fentanyl IV EBL: Minimal. Contrast: 40 mL [id number]-300 Specimen sent: None COMPLICATIONS: None immediate Fluoroscopy Time: 9.9 minutes. Angiographic runs: 0 Fluoroscopic spot images: 0 Fluoroscopic saved images were obtained. These images do NOT add additional exposure to ionizing radiation and werecaptured electronically from the imaging chain. Procedural details: Prior to the procedure red rules were performed which included patient name, date of , and procedure type. All of the risk, benefits, and alternative treatments were explained to the patient and informed consent was obtained and documented. The patient was brought into the angiography suite and placed in the prone position. Maximal sterile barrier technique was utilized. All elements of maximal sterile barrier technique were used including a hat, mask, sterile gown, sterile gloves, and a sterile drape. Appropriate hand hy giene using 2 percent chlorhexidine for cutaneous antisepsis was utilized. A sterile ultrasound probe cover and sterile ultrasound gel was utilized. The left kidney was interrogated with ultrasound. There was no hydronephrosis. No dilated posterior calyx amenable to ultrasound-guided puncture. The overlying subcutaneous tissues were anesthetized using one percent lidocaine. Under direct ultrasound visualization, a 21-gauge micropuncture needle was advanced into the posterior superior region Special Procedures Report of the left kidney. Gentle contrast injection through the needle as it was withdrawn showed no urinary collecting system opacification. Subsequently, intravenous pyelography was performed with injection of 30 mL of contrast intravenously. Multiple additional attempts were thenmade to access the urinary collecting system with ultrasound and fluoroscopic guidance. A needle was then advanced into a posterior superior renal calyx, and antegrade nephrostogram was performed, confirming intraluminal position of the needle tip. However, the 0.018 inch microwire could not be adva nced. Additional attempts were then made, however, the patient continued to experience severe pain despite local anesthesia and moderate sedation. At this point, the procedure was terminated. There were no immediate complications. FINDINGS: Ultrasound of the left kidney shows no hydronephrosis. Intravenous pyelography shows nondilated renal collecting system. IMPRESSION: Unsuccessful ultrasound and fluoroscopic guided placement of a left nephrostomy tube for urinary diversion due to nondilated collecting system and inadequate anesthesia. Additional attempts may be considered with deep sedation provided by anesthesiology. Report Dictated on --- Final --- Dictated: 12/22/2020 2:25 pm Dictating Physician: MD ARMENDARIZ KEVIN Signed Date and Time: 12/22/2020 2:33 pm Signed by: MD ARMENDARIZ KEVIN Transcribed Date and Time: 12/22/2020 2:25 Labs: Admission on 12/21/2020 Component Date Value Ref Range Status Sodium 12/21/2020 137 135 - 145 mmol/L Final Potassium 12/21/2020 5.0 3.5 - 5.1 mmol/L Final Slightly hemolysed, interpret with caution. Chloride 12/21/2020 104 98 - 107 mmol/L Final CO2 12/21/2020 27 22 - 30 mmol/L Final Anion Gap 12/21/2020 5 3 - 13 mmol/L Final Glucose 12/21/2020 86 70 - 100 mg/dL Final BUN 12/21/2020 16 7 - 20 mg/dL Final CREATININE 12/21/2020 1.08 0.52 - 1.25 mg/dL Final eGFR 12/21/2020 85.0 >60 mL/min Final EGFR IF NonAfrican [place] 12/21/2020 73.4 >60 mL/min Final Comment: KDIGO guidelines provide the following GFR categories: Stage GFR(ml/min/1.73 m2) Terms G1 >=90 Normal or high G2 60-89 Mildly decreased* G3a 45-59 Mildly to moderately decreased G3b 30-44 Moderately to severely decreased G4 15-29 Severely decreased G5 <15 Kidney failure *Relative to young adult level. In the absence of evidence of kidney damage, neither GFR category G1 nor G2 fulfill the criteria for CKD. The CKD-EPI equation is validated in individuals 18 years of age and older. Currently the best equation for estimating glomerular filtration rate (GFR) from serum creatinine in children is the Bedside Boyer equation. It is less accurate in patients with extremes of muscle mass, restriction of dietary protein, ingestion of creatine, extra-renal metabolism of creatinine, or treatment with medications that affect renal tubular creatinine secretion. Calcium 12/21/2020 9.1 8.4 - 10.4 mg/dL Final Albumin,Serum 12/21/2020 4.0 3.5 - 5.0 g/dL Final Slightly hemolysed, interpret with caution. Total Protein 12/21/2020 7.3 6.3 - 8.2 g/dL Final Slightly hemolysed, interpret with caution. Total Bilirubin 12/21/2020 0.6 0.2 - 1.3 mg/dL Final Alkaline Phosphatase 12/21/2020 27* 38 - 126 U/L Final Slightly hemolysed, interpret with caution. ALT 12/21/2020 15 0 - 34 U/L Final Comment: The ALT test is performed by an updated assay method. Please note that the reference intervals have been changed and are now sex specific. AST 12/21/2020 54* 15 - 46 U/L Final Slightly hemolysed, interpret with caution. ABO Grouping 12/21/2020 AB NA Final Rh Type 12/21/2020 POS NA Final Antibody Screen 12/21/2020 NEG NA Final Glucose, Ur 12/22/2020 Normal Normal (<70) mg/dL Final . Total Protein, Urine 12/22/2020 Negative Negative mg/dL Final . Bilirubin Urine 12/22/2020 Negative Negative mg/dL Final . Urobilinogen, Urine 12/22/2020 Normal Normal (0-1) mg/dL Final . pH, Urine 12/22/2020 7.0 5.0 - 8.0 NA Final . Specific [place], Urine 12/22/2020 >1.030* 1.005 - 1.030 NA Final . Occult Blood,Urine 12/22/2020 Negative Negative mg/dL Final . Ketones, Urine 12/22/2020 Negative Negative mg/dL Final . Nitrite, Urine 12/22/2020 Negative Negative NA Final . LEUKOCYTES, UA 12/22/2020 Negative Negative Nesha/uL Final . Appearance 12/22/2020 Clear Clear NA Final . Color, Urine 12/22/2020 Light-Yellow Lt. Yellow NA Final . Urine Culture, Routine 12/22/2020 Escherichia coli* Final Urine Culture, Routine 12/22/2020 Final Value:10,000-50,000 CFU/ml This phenotype is suggestive of an ESBL-producing organism. Treatment with beta-lactam antibiotics other than carbapenems may not be effective. An ID consult may be warranted. Procalcitonin 12/21/2020 <0.10 <0.10 ng/mL Final Interpretation 12/21/2020 See Below NA Final Comment: PCT <0.50 = Low risk of severe sepsis and/or septic shock. PCT >2.00 = High risk of severe sepsis and/or septic shock. Blood Culture, Routine 12/21/2020 Preliminary Value:No growth at 1 day. No growth at 2 days. No growth at 3 days. No growth at 4 days. Blood Culture, Routine 12/22/2020 Preliminary Value:No growth at 1 day. No growth at 2 days. No growth at 3 days. No growth at 4 days. Add On 12/21/2020 Accepted NA Final Specimen available & acceptable for analysis. WBC 12/21/2020 18.0* 3.6 - 10.7 10*3/uL Final RBC 12/21/2020 4.81 3.80 - 5.20 10*6/uL Final Hemoglobin 12/21/2020 12.4 11.7 - 16.0 g/dL Final Hematocrit 12/21/2020 38.9 35.0 - 47.0 % Final MCV 12/21/2020 81.0 79.0 - 98.0 fL Final MCH 12/21/2020 25.9* 26.0 - 34.0 pg Final MCHC 12/21/2020 31.9* 32.0 - 36.0 % Final RDW 12/21/2020 23.6* 11.5 - 14.5 % Final Platelets 12/21/2020 286 140 - 440 10*3/uL Final MPV 12/21/2020 8.5 7.4 - 10.4 fL Final Granulocytes % 12/21/2020 78.4 40.0 - 80.0 % Final Lymphocyte % 12/21/2020 14.3* 20.0 - 40.0 % Final Monocytes 12/21/2020 5.7 2.0 - 10.0 % Final Eosinophils 12/21/2020 1.4 1.0 - 6.0 % Final Basophils 12/21/2020 0.2 0.0 - 2.0 % Final Absolute Neut # 12/21/2020 14.0* 1.8 - 7.0 10*3/uL Final Absolute Lymph # 12/21/2020 2.6 1.0 - 4.3 10*3/uL Final Absolute [place] # 12/21/2020 1.0* 0.0 - 0.8 10*3/uL Final Absolute Eos # 12/21/2020 0.3 0.0 - 0.5 10*3/uL Final Absolute Baso # 12/21/2020 0.0 0.0 - 0.2 10*3/uL Final Lactic Acid 12/21/2020 1.3 0.7 - 2.0 mmol/L Final Protime 12/22/2020 10.8 9.0 - 12.0 s Final . INR 12/22/2020 1.0 0.9 - 1.1 NA Final Comment: Recommended Anticoagulant Therapy: SEE BELOW ----- INR of 2.0 - 3.0 : - Prophylaxis of Venous Thrombosis (high-risk surgery) - Treatment of Venous Thrombosis - Treatment of Pulmonary Embolism (Includes tissue heart valves, Acute Myocardial Infarction to prevent systemic embolism, Valvular Heart Disease, and Atrial Fibrillation) ----- INR of 2.5 - 3.5 : - Mechanical Prosthetic Valves (high risk) - If oral anticoagulant therapy is used to prevent Myocardial Infarction Sodium 12/23/2020 136 135 - 145 mmol/L Final Potassium 12/23/2020 4.3 3.5 - 5.1 mmol/L Final Chloride 12/23/2020 103 98 - 107 mmol/L Final CO2 12/23/2020 25 22 - 30 mmol/L Final Anion Gap 12/23/2020 7 3 - 13 mmol/L Final Glucose 12/23/2020 163* 70 - 100 mg/dL Final BUN 12/23/2020 16 7 - 20 mg/dL Final CREATININE 12/23/2020 0.84 0.52 - 1.25 mg/dL Final eGFR 12/23/2020 >90.0 >60 mL/min Final EGFR IF NonAfrican [place]ian 12/23/2020 >90.0 >60 mL/min Final Comment: KDIGO guidelines provide the following GFR categories: Stage GFR(ml/min/1.73 m2) Terms G1 >=90 Normal or high G2 60-89 Mildly decreased* G3a 45-59 Mildly to moderately decreased G3b 30-44 Moderately to severely decreased G4 15-29 Severely decreased G5 <15 Kidney failure *Relative to young adult level. In the absence of evidence of kidney damage, neither GFR category G1 nor G2 fulfill the criteria for CKD. The CKD-EPI equation is validated in individuals 18 years of age and older. Currently the best equation for estimating glomerular filtration rate (GFR) from serum creatinine in children is the Bedside Boyer equation. It is less accurate in patients with extremes of muscle mass, restriction of dietary protein, ingestion of creatine, extra-renal metabolism of creatinine, or treatment with medications that affect renal tubular creatinine secretion. Calcium 12/23/2020 9.3 8.4 - 10.4 mg/dL Final WBC 12/23/2020 20.3* 3.6 - 10.7 10*3/uL Final RBC 12/23/2020 4.24 3.80 - 5.20 10*6/uL Final Hemoglobin 12/23/2020 11.1* 11.7 - 16.0 g/dL Final Hematocrit 12/23/2020 34.5* 35.0 - 47.0 % Final MCV 12/23/2020 81.4 79.0 - 98.0 fL Final MCH 12/23/2020 26.3 26.0 - 34.0 pg Final MCHC 12/23/2020 32.3 32.0 - 36.0 % Final RDW 12/23/2020 21.9* 11.5 - 14.5 % Final Platelets 12/23/2020 267 140 - 440 10*3/uL Final MPV 12/23/2020 8.6 7.4 - 10.4 fL Final Granulocytes % 12/23/2020 92.7* 40.0 - 80.0 % Final Lymphocyte % 12/23/2020 3.9* 20.0 - 40.0 % Final Monocytes 12/23/2020 3.3 2.0 - 10.0 % Final Eosinophils 12/23/2020 0.0* 1.0 - 6.0 % Final Basophils 12/23/2020 0.1 0.0 - 2.0 % Final Absolute Neut # 12/23/2020 18.8* 1.8 - 7.0 10*3/uL Final Absolute Lymph # 12/23/2020 0.8* 1.0 - 4.3 10*3/uL Final Absolute [place] # 12/23/2020 0.7 0.0 - 0.8 10*3/uL Final Absolute Eos # 12/23/2020 0.0 0.0 - 0.5 10*3/uL Final Absolute Baso # 12/23/2020 0.0 0.0 - 0.2 10*3/uL Final WBC 12/24/2020 15.2* 3.6 - 10.7 10*3/uL Final RBC 12/24/2020 4.21 3.80 - 5.20 10*6/uL Final Hemoglobin 12/24/2020 10.9* 11.7 - 16.0 g/dL Final Hematocrit 12/24/2020 34.3* 35.0 - 47.0 % Final MCV 12/24/2020 81.5 79.0 - 98.0 fL Final MCH 12/24/2020 25.8* 26.0 - 34.0 pg Final MCHC 12/24/2020 31.7* 32.0 - 36.0 % Final RDW 12/24/2020 21.5* 11.5 - 14.5 % Final Platelets 12/24/2020 259 140 - 440 10*3/uL Final MPV 12/24/2020 8.5 7.4 - 10.4 fL Final Granulocytes % 12/24/2020 77.7 40.0 - 80.0 % Final Lymphocyte % 12/24/2020 15.8* 20.0 - 40.0 % Final Monocytes 12/24/2020 5.4 2.0 - 10.0 % Final Eosinophils 12/24/2020 0.7* 1.0 - 6.0 % Final Basophils 12/24/2020 0.4 0.0 - 2.0 % Final Absolute Neut # 12/24/2020 11.8* 1.8 - 7.0 10*3/uL Final Absolute Lymph # 12/24/2020 2.4 1.0 - 4.3 10*3/uL Final Absolute [place] # 12/24/2020 0.8 0.0 - 0.8 10*3/uL Final Absolute Eos # 12/24/2020 0.1 0.0 - 0.5 10*3/uL Final Absolute Baso # 12/24/2020 0.1 0.0 - 0.2 10*3/uL Final Sodium 12/24/2020 137 135 - 145 mmol/L Final Potassium 12/24/2020 4.4 3.5 - 5.1 mmol/L Final Chloride 12/24/2020 104 98 - 107 mmol/L Final CO2 12/24/2020 27 22 - 30 mmol/L Final Anion Gap 12/24/2020 7 3 - 13 mmol/L Final Glucose 12/24/2020 98 70 - 100 mg/dL Final BUN 12/24/2020 13 7 - 20 mg/dL Final CREATININE 12/24/2020 0.65 0.52 - 1.25 mg/dL Final eGFR 12/24/2020 >90.0 >60 mL/min Final EGFR IF NonAfrican [place] 12/24/2020 >90.0 >60 mL/min Final Comment: KDIGO guidelines provide the following GFR categories: Stage GFR(ml/min/1.73 m2) Terms G1 >=90 Normal or high G2 60-89 Mildly decreased* G3a 45-59 Mildly to moderately decreased G3b 30-44 Moderately to severely decreased G4 15-29 Severely decreased G5 <15 Kidney failure *Relative to young adult level. In the absence of evidence of kidney damage, neither GFR category G1 nor G2 fulfill the criteria for CKD. The CKD-EPI equation is validated in individuals 18 years of age and older. Currently the best equation for estimating glomerular filtration rate (GFR) from serum creatinine in children is the Bedside Boyer equation. It is less accurate in patients with extremes of muscle mass, restriction of dietary protein, ingestion of creatine, extra-renal metabolism of creatinine, or treatment with medications that affect renal tubular creatinine secretion. Calcium 12/24/2020 8.8 8.4 - 10.4 mg/dL Final WBC 12/25/2020 12.1* 3.6 - 10.7 10*3/uL Final RBC 12/25/2020 3.84 3.80 - 5.20 10*6/uL Final Hemoglobin 12/25/2020 10.1* 11.7 - 16.0 g/dL Final Hematocrit 12/25/2020 31.3* 35.0 - 47.0 % Final MCV 12/25/2020 81.6 79.0 - 98.0 fL Final MCH 12/25/2020 26.3 26.0 - 34.0 pg Final MCHC 12/25/2020 32.3 32.0 - 36.0 % Final RDW 12/25/2020 20.7* 11.5 - 14.5 % Final Platelets 12/25/2020 205 140 - 440 10*3/uL Final MPV 12/25/2020 8.4 7.4 - 10.4 fL Final Sodium 12/25/2020 138 135 - 145 mmol/L Final Potassium 12/25/2020 3.2* 3.5 - 5.1 mmol/L Final Chloride 12/25/2020 112* 98 - 107 mmol/L Final CO2 12/25/2020 22 22 - 30 mmol/L Final Anion Gap 12/25/2020 4 3 - 13 mmol/L Final Glucose 12/25/2020 66* 70 - 100 mg/dL Final BUN 12/25/2020 8 7 - 20 mg/dL Final CREATININE 12/25/2020 0.63 0.52 - 1.25 mg/dL Final eGFR 12/25/2020 >90.0 >60 mL/min Final EGFR IF NonAfrican [place] 12/25/2020 >90.0 >60 mL/min Final Comment: KDIGO guidelines provide the following GFR categories: Stage GFR(ml/min/1.73 m2) Terms G1 >=90 Normal or high G2 60-89 Mildly decreased* G3a 45-59 Mildly to moderately decreased G3b 30-44 Moderately to severely decreased G4 15-29 Severely decreased G5 <15 Kidney failure *Relative to young adult level. In the absence of evidence of kidney damage, neither GFR category G1 nor G2 fulfill the criteria for CKD. The CKD-EPI equation is validated in individuals 18 years of age and older. Currently the best equation for estimating glomerular filtration rate (GFR) from serum creatinine in children is the Bedside Boyer equation. It is less accurate in patients with extremes of muscle mass, restriction of dietary protein, ingestion of creatine, extra-renal metabolism of creatinine, or treatment with medications that affect renal tubular creatinine secretion. Calcium 12/25/2020 6.7* 8.4 - 10.4 mg/dL Final WBC 12/26/2020 10.0 3.6 - 10.7 10*3/uL Final RBC 12/26/2020 4.16 3.80 - 5.20 10*6/uL Final Hemoglobin 12/26/2020 10.9* 11.7 - 16.0 g/dL Final Hematocrit 12/26/2020 33.5* 35.0 - 47.0 % Final MCV 12/26/2020 80.3 79.0 - 98.0 fL Final MCH 12/26/2020 26.1 26.0 - 34.0 pg Final MCHC 12/26/2020 32.5 32.0 - 36.0 % Final RDW 12/26/2020 20.8* 11.5 - 14.5 % Final Platelets 12/26/2020 269 140 - 440 10*3/uL Final MPV 12/26/2020 8.4 7.4 - 10.4 fL Final Granulocytes % 12/26/2020 68.2 40.0 - 80.0 % Final Lymphocyte % 12/26/2020 19.1* 20.0 - 40.0 % Final Monocytes 12/26/2020 9.9 2.0 - 10.0 % Final Eosinophils 12/26/2020 2.0 1.0 - 6.0 % Final Basophils 12/26/2020 0.8 0.0 - 2.0 % Final Absolute Neut # 12/26/2020 6.8 1.8 - 7.0 10*3/uL Final Absolute Lymph # 12/26/2020 1.9 1.0 - 4.3 10*3/uL Final Absolute [place] # 12/26/2020 1.0* 0.0 - 0.8 10*3/uL Final Absolute Eos # 12/26/2020 0.2 0.0 - 0.5 10*3/uL Final Absolute Baso # 12/26/2020 0.1 0.0 - 0.2 10*3/uL Final Protime 12/26/2020 11.4 9.0 - 12.0 s Final . INR 12/26/2020 1.1 0.9 - 1.1 NA Final Comment: Recommended Anticoagulant Therapy: SEE BELOW ----- INR of 2.0 - 3.0 : - Prophylaxis of Venous Thrombosis (high-risk surgery) - Treatment of Venous Thrombosis - Treatment of Pulmonary Embolism (Includes tissue heart valves, Acute Myocardial Infarction to prevent systemic embolism, Valvular Heart Disease, and Atrial Fibrillation) ----- INR of 2.5 - 3.5 : - Mechanical Prosthetic Valves (high risk) - If oral anticoagulant therapy is used to prevent Myocardial Infarction Assessment/Plan: Addis Torres 20 y.o. female admitted for ureteral injury Left ureteral injury - POD #9 s/p RTLH, BS for endometrial cancer - Stage 1A - Urology consulted, appreciate care - Left ureteral stent had migrated yesterday on CT scan and was replaced yesterday evening for larger size by urology - Per patient, urology to discuss possible IR drain of urinoma today Tachycardia - HR still in 100s, vitals otherwise stable - Afebrile - CBC pending this AM - CTA neg for PE Bacteruria - ID consulted, appreciate recs - Changed back to Ertapenem yesterday due to worsening urinoma - Possible placement of PICC line today for continued IV abx Adjustment related depression - Psych consulted, appreciate care Further plan pending discussion with Dr. Escobedo. Rekha Rowland DO 12/27/2020, 5:54 AM * Patience Hook RN - 12/26/2020 6:36 PM EDT Report called to EMY Norris. * Tey Garcia MD - 12/26/2020 5:04 PM EDT Discussed the need to replace stent with patient All aspects of the procedure, along with the pros & cons of intervention and the potential associated risks & complications have been discussed with the patient. Questions have been answered, and informed consent has been obtained. Tye Garcia MD 12/26/2020 * Jen Canas DO - 12/26/2020 1:53 PM EDT Patient seen and examined this afternoon. Explained results of CT and plan for IV abx for possible abscess formation. Per discussion with urology, plan for replacement of stent this evening. Her painis controlled. Resting comfortably in bed. Has been tolerating PO, but now NPO for procedure. Explained POC to patient and all questions answered. EKG with sinus rhythm this morning. Vitals: 12/26/20 0451 BP: (!) 138/93 Pulse: 117 Resp: 18 Temp: 97.6 F (36.4 C) SpO2: 100% * Tye Garcia MD - 12/26/2020 1:28 PM EDT UROLOGY PROGRESS NOTE PATIENT NAME: Addis Torres DATE OF : 2000 ADMISSION DATE: 12/21/2020 4:40 PM TODAY'S DATE: 12/26/2020 Subjective Patient anxious overnight, which she states is not totally unchanged since admission Did have some subjective chills yesterday afternoon but feels improved today Since she was tachycardic this morning, CT scan was ordered per the primary team showing migration of the left ureteral stent one vertebral body distally but still across the area of extravasation onthe prior retrograde pyelogram as well as interval increase in size of presacral fluid collection Discussed these findings with the patient, who is visibly upset about remaining in the hospital andpotential surgery this afternoon. After reassurance, patient calmed some and understands the reasoning for attempting stent exchange this afternoon. Patient states she has not had anything to eat or drink today Objective VS: BP (!) 138/93 Pulse 117 Temp 97.6 F (36.4 C) (Temporal) Resp 18 SpO2 100% Vitals: 12/26/20 0451 BP: (!) 138/93 Pulse: 117 Resp: 18 Temp: 97.6 F (36.4 C) SpO2: 100% I & O - 24hr: No intake or output data in the 24 hours ending 12/26/20 1328 Physical Exam: General: Neck: Resp: Abdomen: No acute distress Supple Normal effort, no respiratory distress, on room air Soft, mild lower abdominal tenderness : No cva ttp, dressing over old left nephrostomy tube site Skin: Skin color, texture, turgor normal, no rashes or lesions Labs and Imaging Studies Labs: CBC: Recent Labs 12/24/20 0305 12/25/20 0538 12/26/20 0048 WBC 15.2* 12.1* 10.0 HGB 10.9* 10.1* 10.9* HCT 34.3* 31.3* 33.5* MCV 81.5 81.6 80.3 PLT 259 205 269 BMP: Recent Labs 12/24/20 0305 12/25/20 0538 NA 137 138 K 4.4 3.2* CL 104 112* CO2 27 22 BUN 13 8 CREATININE 0.65 0.63 Magnesium: No results found for: MG Phosphate: No results found for: PHOS PT/INR: No results for input(s): PROTIME, INR in the last 72 hours. U/A: Lab Results Component Value Date LEUKOCYTESUR Negative 12/22/2020 GLUCOSEU Normal 12/22/2020 Urine Culture: pending Blood Culture: pending Imaging Studies: CT Urogram 12/21 IMPRESSION: Complete disruption of the left mid ureter with active flow of urine into the retroperitoneal space with extensive retroperitoneal fluid extending Assessment and Plan ASSESSMENT: 20 y.o. female with left ureteral injury s/p robotic assisted hysterectomy on 12/18. S/p left ureteral stent placement on 12/22 PLAN: - CT reviewed = distal migration of the proximal portion of the stent from L2/3 to L3/4, slight enlargement of pre-sacral fluid collection w/ larger foci of air - leukocytosis improved this morning, Cr from yesterday wnl - consent obtained at bedside, all r/b/a discussed with the patient and she is agreeable - also discussed case with the patient's mother as well, who understands the plan - discussed case with IR as well, they do not believe the fluid collection is drainable as it is not enlarging compared to prior scan - ertapenem started - will obtain urine culture from OR - maintain NPO status - plan moving forward pending findings in OR - discussed with the team Kodak Ferro MD Urology PGY-2, #[id number] Will plan to exchange stent Seen and independently evaluated by me. Discussed with the urology resident. I concur with the assessment and plan. Tye Garcia M.D. 12/26/2020 Tye Garcia * Ruth Ann Richards MD - 12/26/2020 11:11 AM EDT Images from the original note were not included. [facility] - Infectious Diseases Attending Progress Note Subjective: Following for complicated UTI, urinoma. Pt had CTA chest and CT a/p this morning. Pt aware of results and feeling overwhelmed. 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 Favor placing PICC, but pt hesitant. During my visit, pt was called by Urology who want to do surgery this evening including a percutaneous nephrostomy tube. When I returned to the room, pt crying. Objective: Vitals: Patient Vitals for the past 24 hrs: BP Temp Temp src Pulse Resp SpO2 12/26/20 0451 (!) 138/93 97.6 F (36.4 C) Temporal 117 18 100 % 12/25/20 1956 (!) 140/76 98.8 F (37.1 C) Temporal 125 18 98 % 12/25/20 1701 (!) 126/91 98.8 F (37.1 C) Temporal 109 18 99 % Physical Exam Vitals signs and nursing note reviewed. Constitutional: General: She is not in acute distress. Appearance: Normal appearance. She is obese. She is not ill-appearing, toxic- appearing or diaphoretic. HENT: Head: Normocephalic and atraumatic. Right Ear: External ear normal. Left Ear: External ear normal. Nose: Nose normal. No congestion or rhinorrhea. Eyes: General: No scleral icterus. Right eye: No discharge. Left eye: No discharge. Neck: Musculoskeletal: Normal range of motion. No neck rigidity. Cardiovascular: Rate and Rhythm: Normal rate and regular rhythm. Heart sounds: Normal heart sounds. No murmur. Pulmonary: Effort: Pulmonary effort is normal. No respiratory distress. Breath sounds: Normal breath sounds. No wheezing or rhonchi. Abdominal: General: Bowel sounds are normal. There is no distension. Palpations: Abdomen is soft. Tenderness: There is abdominal tenderness. There is no guarding or rebound. Hernia: No hernia is present. Musculoskeletal: Normal range of motion. General: No swelling or tenderness. Right lower leg: No edema. Left lower leg: No edema. Skin: General: Skin is warm and dry. Coloration: Skin is not jaundiced. Findings: No bruising, erythema or rash. Neurological: General: No focal deficit present. Mental Status: She is alert and oriented to person, place, and time. Mental status is at baseline. Sensory: No sensory deficit. Psychiatric: Mood and Affect: crying, anxious Behavior: Behavior normal. Thought Content: Thought content normal. Judgment: Judgment normal. Labs: Component Value Date/Time NA 138 12/25/2020 0538 K 3.2 (L) 12/25/2020 0538 CL 112 (H) 12/25/2020 0538 CO2 22 12/25/2020 0538 BUN 8 12/25/2020 0538 CREATININE 0.63 12/25/2020 0538 GLUCOSE 66 (L) 12/25/2020 0538 CALCIUM 6.7 (L) 12/25/2020 0538 PROT 7.3 12/21/2020 1709 LABALBU 4.0 12/21/2020 1709 BILITOT 0.6 12/21/2020 1709 ALKPHOS 27 (L) 12/21/2020 170 AST 54 (H) 12/21/2020 170 ALT 15 12/21/20201708 PROCAL <0.10 12/21/20202033 Component Value Date/Time WBC 10.0 12/26/20208 HGB 10.9 (L) 12/26/2020 0048 HCT 33.5 (L) 12/26/2020 0048 PLT 269 12/26/2020 0048 GRANULOCYTES 68.2 12/26/2020 0048 LYMPHOPCT 19.1 (L) 12/26/2020 0048 MONOPCT 9.9 12/26/2020 0048 LABEOS 2.0 12/26/2020 0048 BASOPCT 0.8 12/26/2020 0048 NEUTROABS 6.8 12/26/2020 0048 12/18 surg path pending Micro: 12/22 urine 10-50K ESBL E coli S kain, cipro, gent amikacin Lines: PIV Radiography/Echo/Other: 12/26 CT a/p 1. Interval increase in size of the retroperitoneal/presacral rim-enhancing fluid collection with foci of gas since the prior study of 12/24/2020. Although this may represent a urinoma, superimposed infectious/abscess is also considered. 2. Similar size of the retroperitoneal rim-enhancing fluid collection adjacent to the left psoas surrounding the left ureter. 3. Small focus of gas within the proximal left ureter superior to the ureteral stent. This is nonspecific, however infective pyelitis is considered. 4. Severely enlarged bilateral ovaries, similar to prior studies. 12/26 CTA chest 1. No pulmonary embolus identified. 2. Mosaic attenuation the lungs, which can be seen with small vessel or small airways disease. Computed Tomography Report 3. A 9 mm subpleural bleb is present within the left lower lobe. 12/24 CT a/p Improvement but incomplete resolution of retroperitoneal fluid when compared to prior study two days previous. Some loculated air bubbles within it probably related to recent instrumentation. No other interval change when compared to prior study. 12/22 CT a/p Complete disruption of the left mid ureter with active flow of urine into the retroperitoneal space with extensive retroperitoneal fluid extending to the pelvis. 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 female admitted for ureteral injury No acute events reported overnight. Patient was evaluated at the bedside this morning. Patient says that her abdominal pain has improved but she does have some hip pain from lying in bed. Patient also describes a numb, tingly feeling in her left side that comes and goes, not painful. She also feels like her heart is racing at times but believes that is due to anxiety. No fevers, chills, or shortness of breath. Vitals: Vitals: 12/25/20 0058 12/25/20 1701 12/25/20 1956 12/26/20 0451 BP: (!) 147/86 (!) 126/91 (!) 140/76 (!) 138/93 Pulse: 99 109 125 117 Resp: Temp: 96.9 F (36.1 C) 98.8 F (37.1 C) 98.8 F (37.1 C) 97.6 F (36.4 C) TempSrc: Temporal Temporal Temporal Temporal SpO2: 98% 99% 98% 100% Intake/Output: Last Shift: @[id number]@ Current Shift: No intake/output data recorded. Physical Exam: Gen: NAD, alert and cooperative HEENT: Normocephalic, atraumatic, EOMI, MMM Resp: CTABL, no WRR Card: tachycardic, no murmur Abd: Soft, mildly distended, non-tender. No rebound tenderness, guarding, or rigidity. Active bowelsounds on auscultation Incisions: C/D/I Ext: No LE edema, no calf tenderness or swelling Medications: Current Facility-Administered Medications Medication Dose Route Frequency Provider Last Rate Last Admin ciprofloxacin (CIPRO) tablet 500 mg 500 mg Oral 2 times per day Ruth Ann Richards MD 500 mg at 12/25/202049 calcium carbonate (TUMS) chewable tablet 500 mg 500 mg Oral TID PRN Ortega Thomas DO 500 mg at 12/24/202130 tamsulosin (FLOMAX) capsule 0.4 mg 0.4 mg Oral Daily Pawel Guan MD 0.4 mg at 12/25/20808 phenazopyridine (PYRIDIUM) tablet 200 mg 200 mg Oral TID PRN Paewl Guan MD 200 mg at trospium (SANCTURA) tablet 20 mg 20 mg Oral Daily Pawel Guan MD 20 mg at 12/25/20 0809 polyethylene glycol (GLYCOLAX) packet 17 g 17 g Oral Daily Roxann Wilson MD 17 g at 12/25/20 0808 sodium chloride flush 0.9 % injection 10 mL 10 mL Intravenous 2 times per day Tye Garcia MD 10 mL at 12/25/20 205 sodium chloride flush 0.9 % injection 10 mL 10 mL Intravenous PRN Tye Garcia MD 0.9 % sodium chloride infusion 25 mL Intravenous PRN Tye Garcia MD docusate sodium (COLACE) capsule 100 mg 100 mg Oral BID PRN Tye Garcia MD 100 mg at 4 acetaminophen (TYLENOL) tablet 650 mg 650 mg Oral Q4H PRN Tye Garcia MD 650 mg at 12/25/20 0808 ondansetron (ZOFRAN-ODT) disintegrating tablet 4 mg 4 mg Oral Q8H PRN Tye Garcia MD 4 mg at 12/22/20 0011 Or ondansetron (ZOFRAN) injection 4 mg 4 mg Intravenous Q6H PRN Tye Garcia MD 4 mg at 12/26/20 0343 diatrizoate meglumine-sodium (GASTROGRAFIN) 66-10 % solution 30 mL 30 mL Oral ONCE PRN Tye Garcia MD 30 mL at 12/24/20 0750 HYDROmorphone (DILAUDID) injection 0.5 mg 0.5 mg Intravenous Q3H PRN Tye Garcia MD 0.5 mg at12/25/20 1813 Or HYDROmorphone (DILAUDID) injection 1 mg 1 mg Intravenous Q3H PRN Tye Garcia MD 1 mg at 12/26/20 0343 oxyCODONE (ROXICODONE) immediate release tablet 5 mg 5 mg Oral Q4H PRN Tye Garcia MD 5 mg at12/25/20 0809 Or oxyCODONE (ROXICODONE) immediate release tablet 10 mg 10 mg Oral Q4H PRN Tye Garcia MD 10 mgat 12/26/20 0047 Diagnostics: Ct Abdomen Pelvis W Wo Contrast Result Date: 12/22/2020 Patient Name: ADDIS TORRES Computed Tomography ACCESSION EXAM DATE/TIME PROCEDURE ORDERING PROVIDER [id number] 12/22/2020 00:[address] Abdomen/Pelvis w/ [id number] -COLIN, + w/o Contrast JENNIFER CPT code 91381 Q9967 Reason For Exam (CT Abdomen/Pelvis w/ + w/o Contrast) possible left ureter injury, new onset LLQ pain, POD #3 s/p Robotic hysterectomy Report CT ABDOMEN AND PELVIS WITHOUT AND WITH CONTRAST - INCLUDING 3D UROGRAPHY CLINICAL INDICATION: Robotic hysterectomy with left lower quadrant pain and suspected ureteral injury Scan Parameters: Transaxial sequence through the abdomen and pelvis initially without contrast with low-dose technique. Karin ent received some oral contrast as well. Following intravenous injection of 38.5 mL of 350 mg% contrast followed by three minute delay and additional injection of the remaining 38.5 mL, post contrastsequence was performed. 15 minute delayed imaging was also performed.. Multiplanar and 3D MIP reconstruction was performed by the radiologist on an independent workstation. Dose reduction was employed with automated exposure control. COMPARISON: None. FINDINGS: Chest base: Atelectasis noted at the lung bases. There is no pleural fluid. Liver: Normal size and contour. No focal lesion. Biliary tree: Normal caliber. Spleen: Normal. Adrenals: Normal. Pancreas: Normal Kidneys/Collecting systems: No calculi are identified in the proximal collecting systems. Symmetric contrast excretion without evidence of hydronephrosis. The right ureter continues into the urinary bladder. There is irregular contrast collection extending from the level of the left mid ureter across the midline to the right retroperitoneal space on the three-minute delayed sequence and there is a much larger contrast collection throughout the region on the 15 minute delayed sequence. There is extensive nonenhanced retroperitoneal fluid Computed Tomography Report attenuation within the mid abdomen extending into the pelvis.The largest collection is noted in the presacral space with an AP dimension of 3 cm. There is no enhancement within the left distal ureter. Free fluid: There is only a small amount of free intraperito herminio fluid the left paracolic gutter. Retroperitoneal/mesenteric lymphadenopathy: None. Aorta: Normal caliber. Bowel: Normal caliber. Abdominal wall: Normal. Bladder: No filling defects are identified. Wall thickness is normal. Other pelvic organs/viscera: Uterus is absent. There are several gas emma bles in the region surrounding the bladder related to surgery. No mass is identified. Pelvic lymphadenopathy: None. Osseous structures: Normal. IMPRESSION: Complete disruption of the left mid ureter with active flow of urine into the retroperitoneal space with extensive retroperitoneal fluid extending to the pelvis. CRITICAL TEST RESULT COMMUNICATION: A message was sent via [employer] to JENNIFER SZYMANSKI on 12/22/2020 at 1:38 AM EDT. Report Dictated on Workstation: [id number] --- Final ---Dictated: 12/22/2020 1:38 am Dictating Physician: MD OSBORN JEFFREY Signed Date and Time: 12/22/2020 1:50 am Signed by: MD OSBORN JEFFREY Transcribed Date and Time: 12/22/2020 1:38 Xa Special Procedure Result Date: 12/22/2020 Patient Name: ADDIS TORRES Special Procedures ACCESSION EXAM DATE/TIME PROCEDURE ORDERING PROVIDER [id number] 12/22/2020 11:00 EDT XA Special Angiography [id number] -PAWEL GUAN Procedure Reason For Exam (XA Special Angiography Procedure) Left nephrostomy tubeReport CLINICAL HISTORY: Ureteral transection Procedures: 1. Intravenous pyelogram 2. Attempted left nephrostomy tube placement Physician: Dr. Armendariz MEDICATIONS: Local lidocaine, 4 mg Versed IV, 200 mcg fentanyl IV EBL: Minimal. Contrast: 40 mL [id number] Specimen sent: None COMPLICATIONS: None immediate Fluoroscopy Time: 9.9 minutes. Angiographic runs: 0 Fluoroscopic spot images: 0 Fluoroscopic saved images were obtained. These images do NOT add additional exposure to ionizing radiation and werecaptured electronically from the imaging chain. Procedural details: Prior to the procedure red rules were performed which included patient name, date of , and procedure type. All of the risk, benefits, and alternative treatments were explained to the patient and informed consent was obtained and documented. The patient was brought into the angiography suite and placed in the prone position. Maximal sterile barrier technique was utilized. All elements of maximal sterile barrier technique were used including a hat, mask, sterile gown, sterile gloves, and a sterile drape. Appropriate hand hy giene using 2 percent chlorhexidine for cutaneous antisepsis was utilized. A sterile ultrasound probe cover and sterile ultrasound gel was utilized. The left kidney was interrogated with ultrasound. There was no hydronephrosis. No dilated posterior calyx amenable to ultrasound-guided puncture. The overlying subcutaneous tissues were anesthetized using one percent lidocaine. Under direct ultrasound visualization, a 21-gauge micropuncture needle was advanced into the posterior superior region Special Procedures Report of the left kidney. Gentle contrast injection through the needle as it was withdrawn showed no urinary collecting system opacification. Subsequently, intravenous pyelography was performed with injection of 30 mL of contrast intravenously. Multiple additional attempts were thenmade to access the urinary collecting system with ultrasound and fluoroscopic guidance. A needle was then advanced into a posterior superior renal calyx, and antegrade nephrostogram was performed, confirming intraluminal position of the needle tip. However, the 0.018 inch microwire could not be adva nced. Additional attempts were then made, however, the patient continued to experience severe pain despite local anesthesia and moderate sedation. At this point, the procedure was terminated. There were no immediate complications. FINDINGS: Ultrasound of the left kidney shows no hydronephrosis. Intravenous pyelography shows nondilated renal collecting system. IMPRESSION: Unsuccessful ultrasound and fluoroscopic guided placement of a left nephrostomy tube for urinary diversion due to nondilated collecting system and inadequate anesthesia. Additional attempts may be considered with deep sedation provided by anesthesiology. Report Dictated on --- Final --- Dictated: 12/22/2020 2:25 pm Dictating Physician: MD ARMENDARIZ KEVIN Signed Date and Time: 12/22/2020 2:33 pm Signed by: MD ARMENDARIZ KEVIN Transcribed Date and Time: 12/22/2020 2:25 Labs: Admission on 12/21/2020 Component Date Value Ref Range Status Sodium 12/21/2020 137 135 - 145 mmol/L Final Potassium 12/21/2020 5.0 3.5 - 5.1 mmol/L Final Slightly hemolysed, interpret with caution. Chloride 12/21/2020 104 98 - 107 mmol/L Final CO2 12/21/2020 27 22 - 30 mmol/L Final Anion Gap 12/21/2020 5 3 - 13 mmol/L Final Glucose 12/21/2020 86 70 - 100 mg/dL Final BUN 12/21/2020 16 7 - 20 mg/dL Final CREATININE 12/21/2020 1.08 0.52 - 1.25 mg/dL Final eGFR 12/21/2020 85.0 >60 mL/min Final EGFR IF NonAfrican [place] 12/21/2020 73.4 >60 mL/min Final Comment: KDIGO guidelines provide the following GFR categories: Stage GFR(ml/min/1.73 m2) Terms G1 >=90 Normal or high G2 60-89 Mildly decreased* G3a 45-59 Mildly to moderately decreased G3b 30-44 Moderately to severely decreased G4 15-29 Severely decreased G5 <15 Kidney failure *Relative to young adult level. In the absence of evidence of kidney damage, neither GFR category G1 nor G2 fulfill the criteria for CKD. The CKD-EPI equation is validated in individuals 18 years of age and older. Currently the best equation for estimating glomerular filtration rate (GFR) from serum creatinine in children is the Bedside Boyer equation. It is less accurate in patients with extremes of muscle mass, restriction of dietary protein, ingestion of creatine, extra-renal metabolism of creatinine, or treatment with medications that affect renal tubular creatinine secretion. Calcium 12/21/2020 9.1 8.4 - 10.4 mg/dL Final Albumin,Serum 12/21/2020 4.0 3.5 - 5.0 g/dL Final Slightly hemolysed, interpret with caution. Total Protein 12/21/2020 7.3 6.3 - 8.2 g/dL Final Slightly hemolysed, interpret with caution. Total Bilirubin 12/21/2020 0.6 0.2 - 1.3 mg/dL Final Alkaline Phosphatase 12/21/2020 27* 38 - 126 U/L Final Slightly hemolysed, interpret with caution. ALT 12/21/2020 15 0 - 34 U/L Final Comment: The ALT test is performed by an updated assay method. Please note that the reference intervals have been changed and are now sex specific. AST 12/21/2020 54* 15 - 46 U/L Final Slightly hemolysed, interpret with caution. ABO Grouping 12/21/2020 AB NA Final Rh Type 12/21/2020 POS NA Final Antibody Screen 12/21/2020 NEG NA Final Glucose, Ur 12/22/2020 Normal Normal (<70) mg/dL Final . Total Protein, Urine 12/22/2020 Negative Negative mg/dL Final . Bilirubin Urine 12/22/2020 Negative Negative mg/dL Final . Urobilinogen, Urine 12/22/2020 Normal Normal (0-1) mg/dL Final . pH, Urine 12/22/2020 7.0 5.0 - 8.0 NA Final . Specific [place], Urine 12/22/2020 >1.030* 1.005 - 1.030 NA Final . Occult Blood,Urine 12/22/2020 Negative Negative mg/dL Final . Ketones, Urine 12/22/2020 Negative Negative mg/dL Final . Nitrite, Urine 12/22/2020 Negative Negative NA Final . LEUKOCYTES, UA 12/22/2020 Negative Negative Nesha/uL Final . Appearance 12/22/2020 Clear Clear NA Final . Color, Urine 12/22/2020 Light-Yellow Lt. Yellow NA Final . Urine Culture, Routine 12/22/2020 Escherichia coli* Final Urine Culture, Routine 12/22/2020 Final Value:10,000-50,000 CFU/ml This phenotype is suggestive of an ESBL-producing organism. Treatment with beta-lactam antibiotics other than carbapenems may not be effective. An ID consult may be warranted. Procalcitonin 12/21/2020 <0.10 <0.10 ng/mL Final Interpretation 12/21/2020 See Below NA Final Comment: PCT <0.50 = Low risk of severe sepsis and/or septic shock. PCT >2.00 = High risk of severe sepsis and/or septic shock. Blood Culture, Routine 12/21/2020 Preliminary Value:No growth at 1 day. No growth at 2 days. No growth at 3 days. Blood Culture, Routine 12/22/2020 Preliminary Value:No growth at 1 day. No growth at 2 days. No growth at 3 days. Add On 12/21/2020 Accepted NA Final Specimen available & acceptable for analysis. WBC 12/21/2020 18.0* 3.6 - 10.7 10*3/uL Final RBC 12/21/2020 4.81 3.80 - 5.20 10*6/uL Final Hemoglobin 12/21/2020 12.4 11.7 - 16.0 g/dL Final Hematocrit 12/21/2020 38.9 35.0 - 47.0 % Final MCV 12/21/2020 81.0 79.0 - 98.0 fL Final MCH 12/21/2020 25.9* 26.0 - 34.0 pg Final MCHC 12/21/2020 31.9* 32.0 - 36.0 % Final RDW 12/21/2020 23.6* 11.5 - 14.5 % Final Platelets 12/21/2020 286 140 - 440 10*3/uL Final MPV 12/21/2020 8.5 7.4 - 10.4 fL Final Granulocytes % 12/21/2020 78.4 40.0 - 80.0 % Final Lymphocyte % 12/21/2020 14.3* 20.0 - 40.0 % Final Monocytes 12/21/2020 5.7 2.0 - 10.0 % Final Eosinophils 12/21/2020 1.4 1.0 - 6.0 % Final Basophils 12/21/2020 0.2 0.0 - 2.0 % Final Absolute Neut # 12/21/2020 14.0* 1.8 - 7.0 10*3/uL Final Absolute Lymph # 12/21/2020 2.6 1.0 - 4.3 10*3/uL Final Absolute [place] # 12/21/2020 1.0* 0.0 - 0.8 10*3/uL Final Absolute Eos # 12/21/2020 0.3 0.0 - 0.5 10*3/uL Final Absolute Baso # 12/21/2020 0.0 0.0 - 0.2 10*3/uL Final Lactic Acid 12/21/2020 1.3 0.7 - 2.0 mmol/L Final Protime 12/22/2020 10.8 9.0 - 12.0 s Final . INR 12/22/2020 1.0 0.9 - 1.1 NA Final Comment: Recommended Anticoagulant Therapy: SEE BELOW ----- INR of 2.0 - 3.0 : - Prophylaxis of Venous Thrombosis (high-risk surgery) - Treatment of Venous Thrombosis - Treatment of Pulmonary Embolism (Includes tissue heart valves, Acute Myocardial Infarction to prevent systemic embolism, Valvular Heart Disease, and Atrial Fibrillation) ----- INR of 2.5 - 3.5 : - Mechanical Prosthetic Valves (high risk) - If oral anticoagulant therapy is used to prevent Myocardial Infarction Sodium 12/23/2020 136 135 - 145 mmol/L Final Potassium 12/23/2020 4.3 3.5 - 5.1 mmol/L Final Chloride 12/23/2020 103 98 - 107 mmol/L Final CO2 12/23/2020 25 22 - 30 mmol/L Final Anion Gap 12/23/2020 7 3 - 13 mmol/L Final Glucose 12/23/2020 163* 70 - 100 mg/dL Final BUN 12/23/2020 16 7 - 20 mg/dL Final CREATININE 12/23/2020 0.84 0.52 - 1.25 mg/dL Final eGFR 12/23/2020 >90.0 >60 mL/min Final EGFR IF NonAfrican [place] 12/23/2020 >90.0 >60 mL/min Final Comment: KDIGO guidelines provide the following GFR categories: Stage GFR(ml/min/1.73 m2) Terms G1 >=90 Normal or high G2 60-89 Mildly decreased* G3a 45-59 Mildly to moderately decreased G3b 30-44 Moderately to severely decreased G4 15-29 Severely decreased G5 <15 Kidney failure *Relative to young adult level. In the absence of evidence of kidney damage, neither GFR category G1 nor G2 fulfill the criteria for CKD. The CKD-EPI equation is validated in individuals 18 years of age and older. Currently the best equation for estimating glomerular filtration rate (GFR) from serum creatinine in children is the Bedside Boyer equation. It is less accurate in patients with extremes of muscle mass, restriction of dietary protein, ingestion of creatine, extra-renal metabolism of creatinine, or treatment with medications that affect renal tubular creatinine secretion. Calcium 12/23/2020 9.3 8.4 - 10.4 mg/dL Final WBC 12/23/2020 20.3* 3.6 - 10.7 10*3/uL Final RBC 12/23/2020 4.24 3.80 - 5.20 10*6/uL Final Hemoglobin 12/23/2020 11.1* 11.7 - 16.0 g/dL Final Hematocrit 12/23/2020 34.5* 35.0 - 47.0 % Final MCV 12/23/2020 81.4 79.0 - 98.0 fL Final MCH 12/23/2020 26.3 26.0 - 34.0 pg Final MCHC 12/23/2020 32.3 32.0 - 36.0 % Final RDW 12/23/2020 21.9* 11.5 - 14.5 % Final Platelets 12/23/2020 267 140 - 440 10*3/uL Final MPV 12/23/2020 8.6 7.4 - 10.4 fL Final Granulocytes % 12/23/2020 92.7* 40.0 - 80.0 % Final Lymphocyte % 12/23/2020 3.9* 20.0 - 40.0 % Final Monocytes 12/23/2020 3.3 2.0 - 10.0 % Final Eosinophils 12/23/2020 0.0* 1.0 - 6.0 % Final Basophils 12/23/2020 0.1 0.0 - 2.0 % Final Absolute Neut # 12/23/2020 18.8* 1.8 - 7.0 10*3/uL Final Absolute Lymph # 12/23/2020 0.8* 1.0 - 4.3 10*3/uL Final Absolute [place] # 12/23/2020 0.7 0.0 - 0.8 10*3/uL Final Absolute Eos # 12/23/2020 0.0 0.0 - 0.5 10*3/uL Final Absolute Baso # 12/23/2020 0.0 0.0 - 0.2 10*3/uL Final WBC 12/24/2020 15.2* 3.6 - 10.7 10*3/uL Final RBC 12/24/2020 4.21 3.80 - 5.20 10*6/uL Final Hemoglobin 12/24/2020 10.9* 11.7 - 16.0 g/dL Final Hematocrit 12/24/2020 34.3* 35.0 - 47.0 % Final MCV 12/24/2020 81.5 79.0 - 98.0 fL Final MCH 12/24/2020 25.8* 26.0 - 34.0 pg Final MCHC 12/24/2020 31.7* 32.0 - 36.0 % Final RDW 12/24/2020 21.5* 11.5 - 14.5 % Final Platelets 12/24/2020 259 140 - 440 10*3/uL Final MPV 12/24/2020 8.5 7.4 - 10.4 fL Final Granulocytes % 12/24/2020 77.7 40.0 - 80.0 % Final Lymphocyte % 12/24/2020 15.8* 20.0 - 40.0 % Final Monocytes 12/24/2020 5.4 2.0 - 10.0 % Final Eosinophils 12/24/2020 0.7* 1.0 - 6.0 % Final Basophils 12/24/2020 0.4 0.0 - 2.0 % Final Absolute Neut # 12/24/2020 11.8* 1.8 - 7.0 10*3/uL Final Absolute Lymph # 12/24/2020 2.4 1.0 - 4.3 10*3/uL Final Absolute [place] # 12/24/2020 0.8 0.0 - 0.8 10*3/uL Final Absolute Eos # 12/24/2020 0.1 0.0 - 0.5 10*3/uL Final Absolute Baso # 12/24/2020 0.1 0.0 - 0.2 10*3/uL Final Sodium 12/24/2020 137 135 - 145 mmol/L Final Potassium 12/24/2020 4.4 3.5 - 5.1 mmol/L Final Chloride 12/24/2020 104 98 - 107 mmol/L Final CO2 12/24/2020 27 22 - 30 mmol/L Final Anion Gap 12/24/2020 7 3 - 13 mmol/L Final Glucose 12/24/2020 98 70 - 100 mg/dL Final BUN 12/24/2020 13 7 - 20 mg/dL Final CREATININE 12/24/2020 0.65 0.52 - 1.25 mg/dL Final eGFR 12/24/2020 >90.0 >60 mL/min Final EGFR IF NonAfrican [place] 12/24/2020 >90.0 >60 mL/min Final Comment: KDIGO guidelines provide the following GFR categories: Stage GFR(ml/min/1.73 m2) Terms G1 >=90 Normal or high G2 60-89 Mildly decreased* G3a 45-59 Mildly to moderately decreased G3b 30-44 Moderately to severely decreased G4 15-29 Severely decreased G5 <15 Kidney failure *Relative to young adult level. In the absence of evidence of kidney damage, neither GFR category G1 nor G2 fulfill the criteria for CKD. The CKD-EPI equation is validated in individuals 18 years of age and older. Currently the best equation for estimating glomerular filtration rate (GFR) from serum creatinine in children is the Bedside Boyer equation. It is less accurate in patients with extremes of muscle mass, restriction of dietary protein, ingestion of creatine, extra-renal metabolism of creatinine, or treatment with medications that affect renal tubular creatinine secretion. Calcium 12/24/2020 8.8 8.4 - 10.4 mg/dL Final WBC 12/25/2020 12.1* 3.6 - 10.7 10*3/uL Final RBC 12/25/2020 3.84 3.80 - 5.20 10*6/uL Final Hemoglobin 12/25/2020 10.1* 11.7 - 16.0 g/dL Final Hematocrit 12/25/2020 31.3* 35.0 - 47.0 % Final MCV 12/25/2020 81.6 79.0 - 98.0 fL Final MCH 12/25/2020 26.3 26.0 - 34.0 pg Final MCHC 12/25/2020 32.3 32.0 - 36.0 % Final RDW 12/25/2020 20.7* 11.5 - 14.5 % Final Platelets 12/25/2020 205 140 - 440 10*3/uL Final MPV 12/25/2020 8.4 7.4 - 10.4 fL Final Sodium 12/25/2020 138 135 - 145 mmol/L Final Potassium 12/25/2020 3.2* 3.5 - 5.1 mmol/L Final Chloride 12/25/2020 112* 98 - 107 mmol/L Final CO2 12/25/2020 22 22 - 30 mmol/L Final Anion Gap 12/25/2020 4 3 - 13 mmol/L Final Glucose 12/25/2020 66* 70 - 100 mg/dL Final BUN 12/25/2020 8 7 - 20 mg/dL Final CREATININE 12/25/2020 0.63 0.52 - 1.25 mg/dL Final eGFR 12/25/2020 >90.0 >60 mL/min Final EGFR IF NonAfrican [place] 12/25/2020 >90.0 >60 mL/min Final Comment: KDIGO guidelines provide the following GFR categories: Stage GFR(ml/min/1.73 m2) Terms G1 >=90 Normal or high G2 60-89 Mildly decreased* G3a 45-59 Mildly to moderately decreased G3b 30-44 Moderately to severely decreased G4 15-29 Severely decreased G5 <15 Kidney failure *Relative to young adult level. In the absence of evidence of kidney damage, neither GFR category G1 nor G2 fulfill the criteria for CKD. The CKD-EPI equation is validated in individuals 18 years of age and older. Currently the best equation for estimating glomerular filtration rate (GFR) from serum creatinine in children is the Bedside Boyer equation. It is less accurate in patients with extremes of muscle mass, restriction of dietary protein, ingestion of creatine, extra-renal metabolism of creatinine, or treatment with medications that affect renal tubular creatinine secretion. Calcium 12/25/2020 6.7* 8.4 - 10.4 mg/dL Final WBC 12/26/2020 10.0 3.6 - 10.7 10*3/uL Final RBC 12/26/2020 4.16 3.80 - 5.20 10*6/uL Final Hemoglobin 12/26/2020 10.9* 11.7 - 16.0 g/dL Final Hematocrit 12/26/2020 33.5* 35.0 - 47.0 % Final MCV 12/26/2020 80.3 79.0 - 98.0 fL Final MCH 12/26/2020 26.1 26.0 - 34.0 pg Final MCHC 12/26/2020 32.5 32.0 - 36.0 % Final RDW 12/26/2020 20.8* 11.5 - 14.5 % Final Platelets 12/26/2020 269 140 - 440 10*3/uL Final MPV 12/26/2020 8.4 7.4 - 10.4 fL Final Granulocytes % 12/26/2020 68.2 40.0 - 80.0 % Final Lymphocyte % 12/26/2020 19.1* 20.0 - 40.0 % Final Monocytes 12/26/2020 9.9 2.0 - 10.0 % Final Eosinophils 12/26/2020 2.0 1.0 - 6.0 % Final Basophils 12/26/2020 0.8 0.0 - 2.0 % Final Absolute Neut # 12/26/2020 6.8 1.8 - 7.0 10*3/uL Final Absolute Lymph # 12/26/2020 1.9 1.0 - 4.3 10*3/uL Final Absolute [place] # 12/26/2020 1.0* 0.0 - 0.8 10*3/uL Final Absolute Eos # 12/26/2020 0.2 0.0 - 0.5 10*3/uL Final Absolute Baso # 12/26/2020 0.1 0.0 - 0.2 10*3/uL Final Assessment/Plan: Addis Torres 20 y.o. female admitted for ureteral injury Left ureteral injury - POD #8 s/p RTLH, BS for endometrial cancer - Urology consulted, appreciate care - CT reviewed by urology, stent in suboptimal position however does transverse the area of ureteralinjury. Does not need to be replaced at this time Tachycardia - HR 100s overnight, up to 125, vitals otherwise stable - Afebrile - WBC improving, now 10.0, Hgb stable - Patient complains of some palpitations but no shortness of breath or chest pain - EKG pending Bacteruria - ID consulted, appreciate recs - Now on Ciprofloxacin 500mg PO BID Adjustment Related Depression - Evaluated by psych yesterday - No meds - Mood stable Further plan pending discussion with Dr. Escobedo. Rekha Rowland DO 12/26/2020, 6:06 AM Associated attestation - Madan Escobedo MD - 12/26/2020 7:35 AM EDT Patient rounded with the residents. Concern over new onset of tachycardia. The patient denies any pulmonary, gastrointestinal or genitourinary symptoms. On exam the abdomen is soft and nontender, there is no CVA tenderness. We'll plan on computed tomography scan of the abdomen pelvis and chest today to rule out PE as well as to make sure that the fluid collection is not enlarging. We'll continue to treat the Escherichia coli urinary tract infection. * Rekha Rowland DO - 12/25/2020 3:23 PM EDT PM rounding Pt doing well. She states that her pain has improved since yesterday. Vitals: 12/25/20 0058 BP: (!) 147/86 Pulse: 99 Resp: 18 Temp: 96.9 F (36.1 C) SpO2: 98% Gen- AOx3, NAD Abd- soft, appropriately tender, no r/g Incision- C/D/I Ext- no edema or tenderness A/P: - Evaluated by psych today- adjustment related depression - Per urology, will not replace stent at this time - Likely discharge tomorrow pending PO abx recs * Gil Gutierrez DO - 12/25/2020 8:25 AM EDT UROLOGY PROGRESS NOTE PATIENT NAME: Addis Torres DATE OF : 2000 ADMISSION DATE: 12/21/2020 4:40 PM TODAY'S DATE: 12/25/2020 Subjective Patient had left ureteral stent placed in OR 12/[address] L PNT. Feeling much better this AM compared to admission Passing gas BM x [address] from 12/25 shows stent in proximal L ureter, less urine in abdomen, minimal L ureteral dilation Mild urinary frequency and dysuria from ureteral stent. Afebrile. Nausea improved Ambulating Objective VS: BP (!) 147/86 Pulse 99 Temp 96.9 F (36.1 C) (Temporal) Resp 18 SpO2 98% Vitals: 12/25/20 0058 BP: (!) 147/86 Pulse: 99 Resp: 18 Temp: 96.9 F (36.1 C) SpO2: 98% I & O - 24hr: Intake/Output Summary (Last 24 hours) at 12/25/2020 0825 Last data filed at 12/25/2020 0603 Gross per 24 hour Intake 910 ml Output 3220 ml Net -2310 ml Physical Exam: General: Neck: Resp: Abdomen: No acute distress Supple Normal effort, no respiratory distress, on room air Soft, mild lower abdominal tenderness : No L flank TTP; minimal LLQ TTP Skin: Skin color, texture, turgor normal, no rashes or lesions Labs and Imaging Studies Labs: CBC: Recent Labs 12/23/20 0622 12/24/20 0305 12/25/20 0538 WBC 20.3* 15.2* 12.1* HGB 11.1* 10.9* 10.1* HCT 34.5* 34.3* 31.3* MCV 81.4 81.5 81.6 PLT 267 259 205 BMP: Recent Labs 12/23/20 0146 12/24/20 0305 12/25/20 0538 NA 136 137 138 K 4.3 4.4 3.2* CL 103 104 112* CO2 25 27 22 BUN 16 13 8 CREATININE 0.84 0.65 0.63 Magnesium: No results found for: MG Phosphate: No results found for: PHOS PT/INR: No results for input(s): PROTIME, INR in the last 72 hours. U/A: Lab Results Component Value Date LEUKOCYTESUR Negative 12/22/2020 GLUCOSEU Normal 12/22/2020 Urine Culture: pending Blood Culture: pending Imaging Studies: CT Urogram 12/21 IMPRESSION: Complete disruption of the left mid ureter with active flow of urine into the retroperitoneal space with extensive retroperitoneal fluid extending Assessment and Plan ASSESSMENT: 20 y.o. female with left ureteral injury s/p robotic assisted hysterectomy on 12/18. S/p left ureteral stent placement on 12/22 PLAN: - given clinical improvement, improvement in labwork, and CT demonstrating improving urinoma, recommend conservative therapy for now; no need to exchange stent at this time - Maintain left ureteral stent for ~6 weeks. Will plan on stent removal and ureteroscopy in the OR to evaluate ureteral injury at that time - flomax, pyridium prn, and trospium for stent discomfort -Continue ABX for urinoma. Will plan on discharging with course of po abx -Leukocytosis improving - discussed with attending Gil Gutierrez DO Urology, PGY-3 [id number] Associated attestation - Heriberto Barahona MD - 12/25/2020 12:51 PM EDT Attending Supervising Physician s Attestation Statement I saw and evaluated the patient. I discussed the findings and plans with resident physician and agree as documented in his note CT reviewed, discussed with patient Stent is suboptimal in position, however it does transverse the area of ureteral injury She is clinically improving and CT findings have improved as well. Given the difficulty in placing the stent, the narrow stent being needed to pass the injured area, at this time will advise against stent change * Jen Canas, DO - 12/25/2020 5:12 AM EDT Images from the original note were not included. [employer] Progress Note Date: 12/25/2020 Time: 5:12 AM Addis Torres 20 y.o. female admitted for ureteral injury Patient seen and examined. No acute events overnight. She still reports pain located in her left hip but overall improved from yesterday. Controlled with medications. Has some hematuria with urination but very light. Tolerating PO. She is passing flatus. She denies Fever/Chills, Chest Pain, SOB, N/V. Vitals: Vitals: 12/24/20 0708 12/24/20 1218 12/24/20 1220 12/25/20 0058 BP: (!) 141/77 (!) 143/86 (!) 147/86 Pulse: 86 91 92 99 Resp: 18 Temp: 98.2 F (36.8 C) 99.1 F (37.3 C) 96.9 F (36.1 C) TempSrc: Temporal Temporal Temporal Temporal SpO2: 97% 98% 100% 98% Intake/Output: Intake/Output Summary (Last 24 hours) at 12/25/2020 0512 Last data filed at 12/25/2020 0058 Gross per 24 hour Intake 2173 ml Output 1920 ml Net 253 ml Physical Exam: Gen: NAD, alert and cooperative HEENT: Normocephalic, atraumatic, EOMI, MMM Abd: soft, NT/ND, no rebound, no guarding. Incisions: C/D/I with Dermabond Ext: No LE edema, no calf tenderness or swelling Diagnostics: Ct Abdomen Pelvis W Wo Contrast Result Date: 12/22/2020 Patient Name: ADDIS TORRES Computed Tomography ACCESSION EXAM DATE/TIME PROCEDURE ORDERING PROVIDER [id number] 12/22/2020 00:[address] Abdomen/Pelvis w/ [id number] -COLIN, + w/o Contrast JENNIFER CPT code 02112 Q9967 Reason For Exam (CT Abdomen/Pelvis w/ + w/o Contrast) possible left ureter injury, new onset LLQ pain, POD #3 s/p Robotic hysterectomy Report CT ABDOMEN AND PELVIS WITHOUT AND WITH CONTRAST - INCLUDING 3D UROGRAPHY CLINICAL INDICATION: Robotic hysterectomy with left lower quadrant pain and suspected ureteral injury Scan Parameters: Transaxial sequence through the abdomen and pelvis initially without contrast with low-dose technique. Karin ent received some oral contrast as well. Following intravenous injection of 38.5 mL of 350 mg% contrast followed by three minute delay and additional injection of the remaining 38.5 mL, post contrastsequence was performed. 15 minute delayed imaging was also performed.. Multiplanar and 3D MIP reconstruction was performed by the radiologist on an independent workstation. Dose reduction was employed with automated exposure control. COMPARISON: None. FINDINGS: Chest base: Atelectasis noted at the lung bases. There is no pleural fluid. Liver: Normal size and contour. No focal lesion. Biliary tree: Normal caliber. Spleen: Normal. Adrenals: Normal. Pancreas: Normal Kidneys/Collecting systems: No calculi are identified in the proximal collecting systems. Symmetric contrast excretion without evidence of hydronephrosis. The right ureter continues into the urinary bladder. There is irregular contrast collection extending from the level of the left mid ureter across the midline to the right retroperitoneal space on the three-minute delayed sequence and there is a much larger contrast collection throughout the region on the 15 minute delayed sequence. There is extensive nonenhanced retroperitoneal fluid Computed Tomography Report attenuation within the mid abdomen extending into the pelvis.The largest collection is noted in the presacral space with an AP dimension of 3 cm. There is no enhancement within the left distal ureter. Free fluid: There is only a small amount of free intraperito herminio fluid the left paracolic gutter. Retroperitoneal/mesenteric lymphadenopathy: None. Aorta: Normal caliber. Bowel: Normal caliber. Abdominal wall: Normal. Bladder: No filling defects are identified. Wall thickness is normal. Other pelvic organs/viscera: Uterus is absent. There are several gas emma bles in the region surrounding the bladder related to surgery. No mass is identified. Pelvic lymphadenopathy: None. Osseous structures: Normal. IMPRESSION: Complete disruption of the left mid ureter with active flow of urine into the retroperitoneal space with extensive retroperitoneal fluid extending to the pelvis. Xa Special Procedure Result Date: 12/22/2020 Patient Name: ADDIS TORRES Special Procedures ACCESSION EXAM DATE/TIME PROCEDURE ORDERING PROVIDER [id number] 12/22/2020 11:00 EDT XA Special Angiography [id number] -PAWEL GUAN Procedure Reason For Exam (XA Special Angiography Procedure) Left nephrostomy tubeReport CLINICAL HISTORY: Ureteral transection Procedures: 1. Intravenous pyelogram 2. Attempted left nephrostomy tube placement Physician: Dr. Armendariz MEDICATIONS: Local lidocaine, 4 mg Versed IV, 200 mcg fentanyl IV EBL: Minimal. Contrast: 40 mL Isovue-300 Specimen sent: None COMPLICATIONS: None immediate Fluoroscopy Time: 9.9 minutes. Angiographic runs: 0 Fluoroscopic spot images: 0 Fluoroscopic saved images were obtained. These images do NOT add additional exposure to ionizing radiation and werecaptured electronically from the imaging chain. Procedural details: Prior to the procedure red rules were performed which included patient name, date of , and procedure type. All of the risk, benefits, and alternative treatments were explained to the patient and informed consent was obtained and documented. The patient was brought into the angiography suite and placed in the prone position. Maximal sterile barrier technique was utilized. All elements of maximal sterile barrier technique were used including a hat, mask, sterile gown, sterile gloves, and a sterile drape. Appropriate hand hy giene using 2 percent chlorhexidine for cutaneous antisepsis was utilized. A sterile ultrasound probe cover and sterile ultrasound gel was utilized. The left kidney was interrogated with ultrasound. There was no hydronephrosis. No dilated posterior calyx amenable to ultrasound-guided puncture. The overlying subcutaneous tissues were anesthetized using one percent lidocaine. Under direct ultrasound visualization, a 21-gauge micropuncture needle was advanced into the posterior superior region Special Procedures Report of the left kidney. Gentle contrast injection through the needle as it was withdrawn showed no urinary collecting system opacification. Subsequently, intravenous pyelography was performed with injection of 30 mL of contrast intravenously. Multiple additional attempts were thenmade to access the urinary collecting system with ultrasound and fluoroscopic guidance. A needle was then advanced into a posterior superior renal calyx, and antegrade nephrostogram was performed, confirming intraluminal position of the needle tip. However, the 0.018 inch microwire could not be adva nced. Additional attempts were then made, however, the patient continued to experience severe pain despite local anesthesia and moderate sedation. At this point, the procedure was terminated. There were no immediate complications. FINDINGS: Ultrasound of the left kidney shows no hydronephrosis. Intravenous pyelography shows nondilated renal collecting system. IMPRESSION: Unsuccessful ultrasound and fluoroscopic guided placement of a left nephrostomy tube for urinary diversion due to nondilated collecting system and inadequate anesthesia. Additional attempts may be considered with deep sedation provided by anesthesiology. Assessment/Plan: Addis Torres 20 y.o. female, admitted for ureteral injury Left ureteral injury - POD# 7 s/p RTLH, BS for endometrial cancer - Urology c/s, appreciate care of patient - imaging yesterday showed stent in stable position and decrease in intraabdominal urine collection - labs this AM pending - flomoax, trospium and pyridium for stent discomfort Bacteruria - ESBL producing E.Coli in urine culture - ID recommended Ertepenem, formal ID consult placed yesterday. Will need a plan for home-going abx Depression - patient with history but not on medications currently - Psych consult placed yesterday Final plan to be discussed with Dr. Escobedo. Jen Canas DO 12/25/2020, 5:12 AM Associated attestation - Madan Escobedo MD - 12/25/2020 7:48 AM EDT Pt rounded with residents, feels much better. Will check with urology about stent placement. WIll check with ID about antibiotics. * Jen Canas DO - 12/24/2020 3:16 PM EDT Patient seen at bedside this afternoon. Reporting pain is much improved, resting comfortably in bed. Abdomen soft and non-tender. Contacted by primary team for psych consult as patient feeling depressed. Contacted by antimicrobial stewardship for ESBL-E. Coli in urine. Recommended ertapenem insteadof Rocephin. ID c/s placed. Please page OBGYN traffic control specialist pager on [employer] overnight for issues or questions. Jen Canas, PGY-4 12/24/20 * Gela Ochoa MD - 12/24/2020 6:59 AM EDT UROLOGY PROGRESS NOTE PATIENT NAME: Addis Torres DATE OF : 2000 ADMISSION DATE: 12/21/2020 4:40 PM TODAY'S DATE: 12/24/2020 Subjective Patient had left ureteral stent placed in OR 12/[address] L PNT. Last PM, strained with BM Passing some gas Overnight, had severe LLQ pain - controlled with pain medication KUB obtained shows adequate distal curl, however, questionable proximal curl Mild urinary frequency and dysuria from ureteral stent. Afebrile. Some nausea last PM, however, no emesis. Objective VS: BP (!) 156/88 Pulse 106 Temp 97.9 F (36.6 C) (Temporal) Resp 18 SpO2 99% Vitals: 12/23/20 1654 BP: (!) 156/88 Pulse: 106 Resp: 18 Temp: 97.9 F (36.6 C) SpO2: 99% I & O - 24hr: Intake/Output Summary (Last 24 hours) at 12/24/2020 0659 Last data filed at 12/24/2020 0514 Gross per 24 hour Intake 2955 ml Output Net 2955 ml Physical Exam: General: Neck: Resp: Abdomen: No acute distress Supple Normal effort, no respiratory distress, on room air Soft, mild lower abdominal tenderness, mild distention : No L flank TTP; suprapubic TTP Skin: Skin color, texture, turgor normal, no rashes or lesions Labs and Imaging Studies Labs: CBC: Recent Labs 12/21/20 1709 12/23/20 0622 12/24/20 0305 WBC 18.0* 20.3* 15.2* HGB 12.4 11.1* 10.9* HCT 38.9 34.5* 34.3* MCV 81.0 81.4 81.5 PLT 286 267 259 BMP: Recent Labs 12/21/20 1709 12/23/20 0146 12/24/20 0305 NA 137 136 137 K 5.0 4.3 4.4 CL 104 103 104 CO2 27 25 27 BUN 16 16 13 CREATININE 1.08 0.84 0.65 Magnesium: No results found for: MG Phosphate: No results found for: PHOS PT/INR: Recent Labs 12/22/20 0528 PROTIME 10.8 INR 1.0 U/A: Lab Results Component Value Date LEUKOCYTESUR Negative 12/22/2020 GLUCOSEU Normal 12/22/2020 Urine Culture: pending Blood Culture: pending Imaging Studies: CT Urogram 12/21 IMPRESSION: Complete disruption of the left mid ureter with active flow of urine into the retroperitoneal space with extensive retroperitoneal fluid extending Assessment and Plan ASSESSMENT: 20 y.o. female with left ureteral injury s/p robotic assisted hysterectomy on 12/18. S/p left ureteral stent placement on 12/22 PLAN: - check CTAP this AM to assess stent position and status of lower abdominal fluid collection - Maintain left ureteral stent for ~6 weeks. Will plan on stent removal and ureteroscopy in the OR to evaluate ureteral injury at that time - KUB shows not a full curl within the left kidney but the stent is passed the damaged area within the mid ureter - flomax, pyridium prn, and trospium for stent discomfort -Continue rocephin for urinoma. Will plan on discharging with course of po abx -Leukocytosis improving - will discuss with attending Gil Gutierrez DO Urology, PGY-3 0851 The history and physical has been reviewed. The pertinent findings from the history of present illness, past medical history, family history, social history, review of systems have been noted and confirmed that are unchanged. Discussed with the urology resident. Agree with assessment and plan * Jen Canas DO - 12/24/2020 5:59 AM EDT Images from the original note were not included. OVERHEAD DISTRIBUTION ENGINEER-ONC Progress Note Date: 12/24/2020 Time: 6:00 AM Addis Torres 20 y.o. female admitted for ureteral injury Patient seen and examined. Last night the patient had a bowel movement last night, strained a little and began having worse pain in her pelvis. The pain has progressively gotten worse overnight and this morning she is standing at the side of the bed hunched over holding her pelvis. Patient is tolerating oral intake. She is urinating without difficulty. She denies any vaginal bleeding or discharge. She is ambulating without difficulty. She is passing flatus. She denies Fever/Chills, Chest Pain, SOB, N/V. Vitals: Vitals: 12/22/20 1700 12/22/20 1732 12/23/20 0659 12/23/20 1654 BP: (!) 142/93 (!) 139/94 (!) 145/87 (!) 156/88 Pulse: 109 100 96 106 Resp: Temp: 99.3 F (37.4 C) 98.4 F (36.9 C) 97.9 F (36.6 C) TempSrc: Temporal Temporal Temporal SpO2: 94% 93% 97% 99% Intake/Output: Intake/Output Summary (Last 24 hours) at 12/24/2020 0600 Last data filed at 12/24/2020 0514 Gross per 24 hour Intake 2955 ml Output Net 2955 ml Physical Exam: Gen: NAD, alert and cooperative HEENT: Normocephalic, atraumatic, EOMI, MMM Resp: CTABL, no WRR Card: RRR, no murmur Abd: limited due to patient standing, no CVA tenderness. No rebound or guarding Incisions: C/D/I Ext: No LE edema, no calf tenderness or swelling Diagnostics: Ct Abdomen Pelvis W Wo Contrast Result Date: 12/22/2020 Patient Name: ADDIS TORRES Computed Tomography ACCESSION EXAM DATE/TIME PROCEDURE ORDERING PROVIDER [id number] 12/22/2020 00:[address] Abdomen/Pelvis w/ [id number] -COLIN, + w/o Contrast JENNIFER CPT code 17768 Q9967 Reason For Exam (CT Abdomen/Pelvis w/ + w/o Contrast) possible left ureter injury, new onset LLQ pain, POD #3 s/p Robotic hysterectomy Report CT ABDOMEN AND PELVIS WITHOUT AND WITH CONTRAST - INCLUDING 3D UROGRAPHY CLINICAL INDICATION: Robotic hysterectomy with left lower quadrant pain and suspected ureteral injury Scan Parameters: Transaxial sequence through the abdomen and pelvis initially without contrast with low-dose technique. Karin ent received some oral contrast as well. Following intravenous injection of 38.5 mL of 350 mg% contrast followed by three minute delay and additional injection of the remaining 38.5 mL, post contrastsequence was performed. 15 minute delayed imaging was also performed.. Multiplanar and 3D MIP reconstruction was performed by the radiologist on an independent workstation. Dose reduction was employed with automated exposure control. COMPARISON: None. FINDINGS: Chest base: Atelectasis noted at the lung bases. There is no pleural fluid. Liver: Normal size and contour. No focal lesion. Biliary tree: Normal caliber. Spleen: Normal. Adrenals: Normal. Pancreas: Normal Kidneys/Collecting systems: No calculi are identified in the proximal collecting systems. Symmetric contrast excretion without evidence of hydronephrosis. The right ureter continues into the urinary bladder. There is irregular contrast collection extending from the level of the left mid ureter across the midline to the right retroperitoneal space on the three-minute delayed sequence and there is a much larger contrast collection throughout the region on the 15 minute delayed sequence. There is extensive nonenhanced retroperitoneal fluid Computed Tomography Report attenuation within the mid abdomen extending into the pelvis.The largest collection is noted in the presacral space with an AP dimension of 3 cm. There is no enhancement within the left distal ureter. Free fluid: There is only a small amount of free intraperito herminio fluid the left paracolic gutter. Retroperitoneal/mesenteric lymphadenopathy: None. Aorta: Normal caliber. Bowel: Normal caliber. Abdominal wall: Normal. Bladder: No filling defects are identified. Wall thickness is normal. Other pelvic organs/viscera: Uterus is absent. There are several gas emma bles in the region surrounding the bladder related to surgery. No mass is identified. Pelvic lymphadenopathy: None. Osseous structures: Normal. IMPRESSION: Complete disruption of the left mid ureter with active flow of urine into the retroperitoneal space with extensive retroperitoneal fluid extending to the pelvis. CRITICAL TEST RESULT COMMUNICATION: A message was sent via [employer] to JENNIFER SZYMANSKI on 12/22/2020 at 1:38 AM EDT. Report Dictated on Workstation: [id number] --- Final ---Dictated: 12/22/2020 1:38 am Dictating Physician: MD OSBORN JEFFREY Signed Date and Time: 12/22/2020 1:50 am Signed by: MD OSBORN JEFFREY Transcribed Date and Time: 12/22/2020 1:38 Xa Special Procedure Result Date: 12/22/2020 Patient Name: ADDIS TORRES Special Procedures ACCESSION EXAM DATE/TIME PROCEDURE ORDERING PROVIDER [id number] 12/22/2020 11:00 EDT XA Special Angiography [id number] -PAWEL GUAN Procedure Reason For Exam (XA Special Angiography Procedure) Left nephrostomy tubeReport CLINICAL HISTORY: Ureteral transection Procedures: 1. Intravenous pyelogram 2. Attempted left nephrostomy tube placement Physician: Dr. Armendariz MEDICATIONS: Local lidocaine, 4 mg Versed IV, 200 mcg fentanyl IV EBL: Minimal. Contrast: 40 mL Isovue-300 Specimen sent: None COMPLICATIONS: None immediate Fluoroscopy Time: 9.9 minutes. Angiographic runs: 0 Fluoroscopic spot images: 0 Fluoroscopic saved images were obtained. These images do NOT add additional exposure to ionizing radiation and werecaptured electronically from the imaging chain. Procedural details: Prior to the procedure red rules were performed which included patient name, date of , and procedure type. All of the risk, benefits, and alternative treatments were explained to the patient and informed consent was obtained and documented. The patient was brought into the angiography suite and placed in the prone position. Maximal sterile barrier technique was utilized. All elements of maximal sterile barrier technique were used including a hat, mask, sterile gown, sterile gloves, and a sterile drape. Appropriate hand hy giene using 2 percent chlorhexidine for cutaneous antisepsis was utilized. A sterile ultrasound probe cover and sterile ultrasound gel was utilized. The left kidney was interrogated with ultrasound. There was no hydronephrosis. No dilated posterior calyx amenable to ultrasound-guided puncture. The overlying subcutaneous tissues were anesthetized using one percent lidocaine. Under direct ultrasound visualization, a 21-gauge micropuncture needle was advanced into the posterior superior region Special Procedures Report of the left kidney. Gentle contrast injection through the needle as it was withdrawn showed no urinary collecting system opacification. Subsequently, intravenous pyelography was performed with injection of 30 mL of contrast intravenously. Multiple additional attempts were thenmade to access the urinary collecting system with ultrasound and fluoroscopic guidance. A needle was then advanced into a posterior superior renal calyx, and antegrade nephrostogram was performed, confirming intraluminal position of the needle tip. However, the 0.018 inch microwire could not be adva nced. Additional attempts were then made, however, the patient continued to experience severe pain despite local anesthesia and moderate sedation. At this point, the procedure was terminated. There were no immediate complications. FINDINGS: Ultrasound of the left kidney shows no hydronephrosis. Intravenous pyelography shows nondilated renal collecting system. IMPRESSION: Unsuccessful ultrasound and fluoroscopic guided placement of a left nephrostomy tube for urinary diversion due to nondilated collecting system and inadequate anesthesia. Additional attempts may be considered with deep sedation provided by anesthesiology. Report Dictated on --- Final --- Dictated: 12/22/2020 2:25 pm Dictating Physician: MD ARMENDARIZ KEVIN Signed Date and Time: 12/22/2020 2:33 pm Signed by: MD ARMENDARIZ KEVIN Transcribed Date and Time: 12/22/2020 2:25 Labs: Recent Results (from the past 24 hour(s)) CBC WITH AUTO DIFFERENTIAL Collection Time: 12/23/20 6:22 AM Result Value Ref Range WBC 20.3 (H) 3.6 - 10.7 10*3/uL RBC 4.24 3.80 - 5.20 10*6/uL Hemoglobin 11.1 (L) 11.7 - 16.0 g/dL Hematocrit 34.5 (L) 35.0 - 47.0 % MCV 81.4 79.0 - 98.0 fL MCH 26.3 26.0 - 34.0 pg MCHC 32.3 32.0 - 36.0 % RDW 21.9 (H) 11.5 - 14.5 % Platelets 267 140 - 440 10*3/uL MPV 8.6 7.4 - 10.4 fL Granulocytes % 92.7 (H) 40.0 - 80.0 % Lymphocyte % 3.9 (L) 20.0 - 40.0 % Monocytes 3.3 2.0 - 10.0 % Eosinophils 0.0 (L) 1.0 - 6.0 % Basophils 0.1 0.0 - 2.0 % Absolute Neut # 18.8 (H) 1.8 - 7.0 10*3/uL Absolute Lymph # 0.8 (L) 1.0 - 4.3 10*3/uL Absolute [place] # 0.7 0.0 - 0.8 10*3/uL Absolute Eos # 0.0 0.0 - 0.5 10*3/uL Absolute Baso # 0.0 0.0 - 0.2 10*3/uL CBC WITH AUTO DIFFERENTIAL Collection Time: 12/24/20 3:05 AM Result Value Ref Range WBC 15.2 (H) 3.6 - 10.7 10*3/uL RBC 4.21 3.80 - 5.20 10*6/uL Hemoglobin 10.9 (L) 11.7 - 16.0 g/dL Hematocrit 34.3 (L) 35.0 - 47.0 % MCV 81.5 79.0 - 98.0 fL MCH 25.8 (L) 26.0 - 34.0 pg MCHC 31.7 (L) 32.0 - 36.0 % RDW 21.5 (H) 11.5 - 14.5 % Platelets 259 140 - 440 10*3/uL MPV 8.5 7.4 - 10.4 fL Granulocytes % 77.7 40.0 - 80.0 % Lymphocyte % 15.8 (L) 20.0 - 40.0 % Monocytes 5.4 2.0 - 10.0 % Eosinophils 0.7 (L) 1.0 - 6.0 % Basophils 0.4 0.0 - 2.0 % Absolute Neut # 11.8 (H) 1.8 - 7.0 10*3/uL Absolute Lymph # 2.4 1.0 - 4.3 10*3/uL Absolute [place] # 0.8 0.0 - 0.8 10*3/uL Absolute Eos # 0.1 0.0 - 0.5 10*3/uL Absolute Baso # 0.1 0.0 - 0.2 10*3/uL Basic Metabolic Panel Collection Time: 12/24/20 3:05 AM Result Value Ref Range Sodium 137 135 - 145 mmol/L Potassium 4.4 3.5 - 5.1 mmol/L Chloride 104 98 - 107 mmol/L CO2 27 22 - 30 mmol/L Anion Gap 7 3 - 13 mmol/L Glucose 98 70 - 100 mg/dL BUN 13 7 - 20 mg/dL CREATININE 0.65 0.52 - 1.25 mg/dL eGFR >90.0 >60 mL/min EGFR IF NonAfrican [place]ian >90.0 >60 mL/min Calcium 8.8 8.4 - 10.4 mg/dL ] Assessment/Plan: Addis Torres 20 y.o. female admitted for ureteral injury Left ureteral injury - POD6 s/p RTLH, BS for endometrial cancer - thermal injury to the left ureter, s/p cysto with stent placement 2 days ago - Cr 0.6 this AM and urinating without difficulty - acute increase in pain last night after having a bowel movement, urology paged this morning. KUB ordered. Appreciate care by urology team. Final plan to be discussed with Dr. Escobedo. Jen Canas DO 12/24/2020, 6:00 AM Associated attestation - Madan Escobedo MD - 12/24/2020 7:30 AM EDT Patient rounded with the residents. My history and physical exam confirm her note. Patient is complaining of lower pelvic pain today. This started after straining with a bowel movement. Denies any vaginal bleeding. Denies any nausea or vomiting. Denies any flank pain. Her vital signs are stable, nofevers noted. On exam her abdomen is soft and nontender. It is nondistended. Discuss with urology, we'll check kidney, ureter, and bladder for stent placement as well as start Flomax for possible bladder spasms from the stent. We'll also repeat computed tomography scan of the abdomen pelvis to rule out new fluid collection. * Kristen Alvarez RN - 12/24/2020 5:40 AM EDT Patient with c/o of increasing LLQ pain. Abdomen soft, tender to touch. 10 oxy given, with no relief. Dr. Jaimes stated to give 0.5 Dilaudid early, and ordered stat KUB. Will continue to monitor patient. * Roxann Wilson MD - 12/23/2020 6:13 PM EDT Patient evaluated at bedside this afternoon. No acute distress on my exam. Doing well, no complaints at this time. Pain has been well controlled. Tolerating PO intake. Still having some discomfort while urinating and has sensation of incomplete voiding, but she reports this has improved compared . Will plan for repeat labs in the morning to see leukocytosis trend. UCx showed EColi (10-50k CFU) and is currently on Ceftriaxone per Uro recs. Continue postop care at this time. * Nina Maddox DTR - 12/23/2020 10:35 AM EDT Nutrition rescreen completed. Chart reviewed. Patient to be monitored and followed by the diet cable television line technician. * Roxann Wilson MD - 12/23/2020 8:38 AM EDT Images from the original note were not included. OVERHEAD DISTRIBUTION ENGINEER/ONC Progress Note Date: 12/23/2020 Time: 8:38 AM Addis Torres 20 y.o. female admitted for ureteral injury No acute events reported overnight. Patient was evaluated at the bedside this morning. She had no acute complaints. Pain has been well controlled. Tolerating PO intake, denies N/V. Passing flatus, has not had a BM. Some discomfort withurination Vitals: Vitals: 12/22/20 1645 12/22/20 1700 12/22/20 1732 12/23/20 0659 BP: 128/88 (!) 142/93 (!) 139/94 (!) 145/87 Pulse: 108 109 100 96 Resp: 16 16 16 20 Temp: 99.3 F (37.4 C) 98.4 F (36.9 C) TempSrc: Temporal Temporal SpO2: 95% 94% 93% 97% Physical Exam: Gen: NAD, alert and cooperative HEENT: Normocephalic, atraumatic, EOMI, MMM Resp: CTABL, no WRR Card: RRR, no murmur Abd: Soft, non-distended, non-tender. No rebound tenderness, guarding, or rigidity. Incisions: Port sites C/D/I Ext: No LE edema, no calf tenderness or swelling Medications: Current Facility-Administered Medications Medication Dose Route Frequency Provider Last Rate Last Admin tamsulosin (FLOMAX) capsule 0.4 mg 0.4 mg Oral Daily Pawel Guan MD phenazopyridine (PYRIDIUM) tablet 200 mg 200 mg Oral TID PRN Pawel Guan MD trospium (SANCTURA) tablet 20 mg 20 mg Oral Daily Pawel Guan MD cefTRIAXone sodium 1,000 mg in dextrose 5 % 50 mL IVPB (add-vantage) 1,000 mg Intravenous Q24H Tye Garcia MD Stopped at 12/23/20 0539 sodium chloride flush 0.9 % injection 10 mL 10 mL Intravenous 2 times per day Tye Garcia MD 10 mL at 12/21/202108 sodium chloride flush 0.9 % injection 10 mL 10 mL Intravenous PRN Tye Garcia MD 0.9 % sodium chloride infusion 25 mL Intravenous PRN Tye Garcia MD docusate sodium (COLACE) capsule 100 mg 100 mg Oral BID PRN Tye Garcia MD 100 mg at 12/23/209949 acetaminophen (TYLENOL) tablet 650 mg 650 mg Oral Q4H PRN Tye Garcia MD ondansetron (ZOFRAN-ODT) disintegrating tablet 4 mg 4 mg Oral Q8H PRN Tye Garcia MD 4 mg at 12/22/20 0011 Or ondansetron (ZOFRAN) injection 4 mg 4 mg Intravenous Q6H PRN Tye Garcia MD 4 mg at 12/21/20 1811 lactated ringers infusion Intravenous Continuous Tye Garcia MD 100 mL/hr at 12/23/20 0729 Rate Verify at 12/23/20 0729 diatrizoate meglumine-sodium (GASTROGRAFIN) 66-10 % solution 30 mL 30 mL Oral ONCE PRN Tye Garcia MD 30 mL at 12/21/20 2218 HYDROmorphone (DILAUDID) injection 0.5 mg 0.5 mg Intravenous Q3H PRN Tye Garcia MD Or HYDROmorphone (DILAUDID) injection 1 mg 1 mg Intravenous Q3H PRN Tye Garcia MD 1 mg at 12/23/20 0604 oxyCODONE (ROXICODONE) immediate release tablet 5 mg 5 mg Oral Q4H PRN Tye Garcia MD Or oxyCODONE (ROXICODONE) immediate release tablet 10 mg 10 mg Oral Q4H PRN Tye Garcia MD 10 mgat 12/23/20 0500 Diagnostics: Ct Abdomen Pelvis W Wo Contrast Result Date: 12/22/2020 Patient Name: ADDIS TORRES Computed Tomography ACCESSION EXAM DATE/TIME PROCEDURE ORDERING PROVIDER [id number] 12/22/2020 00:[address] Abdomen/Pelvis w/ [id number] -COLIN, + w/o Contrast JENNIFER CPT code 76899 Q9967 Reason For Exam (CT Abdomen/Pelvis w/ + w/o Contrast) possible left ureter injury, new onset LLQ pain, POD #3 s/p Robotic hysterectomy Report CT ABDOMEN AND PELVIS WITHOUT AND WITH CONTRAST - INCLUDING 3D UROGRAPHY CLINICAL INDICATION: Robotic hysterectomy with left lower quadrant pain and suspected ureteral injury Scan Parameters: Transaxial sequence through the abdomen and pelvis initially without contrast with low-dose technique. Karin ent received some oral contrast as well. Following intravenous injection of 38.5 mL of 350 mg% contrast followed by three minute delay and additional injection of the remaining 38.5 mL, post contrastsequence was performed. 15 minute delayed imaging was also performed.. Multiplanar and 3D MIP reconstruction was performed by the radiologist on an independent workstation. Dose reduction was employed with automated exposure control. COMPARISON: None. FINDINGS: Chest base: Atelectasis noted at the lung bases. There is no pleural fluid. Liver: Normal size and contour. No focal lesion. Biliary tree: Normal caliber. Spleen: Normal. Adrenals: Normal. Pancreas: Normal Kidneys/Collecting systems: No calculi are identified in the proximal collecting systems. Symmetric contrast excretion without evidence of hydronephrosis. The right ureter continues into the urinary bladder. There is irregular contrast collection extending from the level of the left mid ureter across the midline to the right retroperitoneal space on the three-minute delayed sequence and there is a much larger contrast collection throughout the region on the 15 minute delayed sequence. There is extensive nonenhanced retroperitoneal fluid Computed Tomography Report attenuation within the mid abdomen extending into the pelvis.The largest collection is noted in the presacral space with an AP dimension of 3 cm. There is no enhancement within the left distal ureter. Free fluid: There is only a small amount of free intraperito herminio fluid the left paracolic gutter. Retroperitoneal/mesenteric lymphadenopathy: None. Aorta: Normal caliber. Bowel: Normal caliber. Abdominal wall: Normal. Bladder: No filling defects are identified. Wall thickness is normal. Other pelvic organs/viscera: Uterus is absent. There are several gas emma bles in the region surrounding the bladder related to surgery. No mass is identified. Pelvic lymphadenopathy: None. Osseous structures: Normal. IMPRESSION: Complete disruption of the left mid ureter with active flow of urine into the retroperitoneal space with extensive retroperitoneal fluid extending to the pelvis. CRITICAL TEST RESULT COMMUNICATION: A message was sent via [employer] to JENNIFER SZYMANSKI on 12/22/2020 at 1:38 AM EDT. Report Dictated on Workstation: [id number] --- Final ---Dictated: 12/22/2020 1:38 am Dictating Physician: MD OSBORN JEFFREY Signed Date and Time: 12/22/2020 1:50 am Signed by: MD OSBORN JEFFREY Transcribed Date and Time: 12/22/2020 1:38 Xa Special Procedure Result Date: 12/22/2020 Patient Name: ADDIS TORRES Special Procedures ACCESSION EXAM DATE/TIME PROCEDURE ORDERING PROVIDER [id number] 12/22/2020 11:00 EDT XA Special Angiography [id number] -PAWEL GUAN Procedure Reason For Exam (XA Special Angiography Procedure) Left nephrostomy tubeReport CLINICAL HISTORY: Ureteral transection Procedures: 1. Intravenous pyelogram 2. Attempted left nephrostomy tube placement Physician: Dr. Armendariz MEDICATIONS: Local lidocaine, 4 mg Versed IV, 200 mcg fentanyl IV EBL: Minimal. Contrast: 40 mL [id number] Specimen sent: None COMPLICATIONS: None immediate Fluoroscopy Time: 9.9 minutes. Angiographic runs: 0 Fluoroscopic spot images: 0 Fluoroscopic saved images were obtained. These images do NOT add additional exposure to ionizing radiation and werecaptured electronically from the imaging chain. Procedural details: Prior to the procedure red rules were performed which included patient name, date of , and procedure type. All of the risk, benefits, and alternative treatments were explained to the patient and informed consent was obtained and documented. The patient was brought into the angiography suite and placed in the prone position. Maximal sterile barrier technique was utilized. All elements of maximal sterile barrier technique were used including a hat, mask, sterile gown, sterile gloves, and a sterile drape. Appropriate hand hy giene using 2 percent chlorhexidine for cutaneous antisepsis was utilized. A sterile ultrasound probe cover and sterile ultrasound gel was utilized. The left kidney was interrogated with ultrasound. There was no hydronephrosis. No dilated posterior calyx amenable to ultrasound-guided puncture. The overlying subcutaneous tissues were anesthetized using one percent lidocaine. Under direct ultrasound visualization, a 21-gauge micropuncture needle was advanced into the posterior superior region Special Procedures Report of the left kidney. Gentle contrast injection through the needle as it was withdrawn showed no urinary collecting system opacification. Subsequently, intravenous pyelography was performed with injection of 30 mL of contrast intravenously. Multiple additional attempts were thenmade to access the urinary collecting system with ultrasound and fluoroscopic guidance. A needle was then advanced into a posterior superior renal calyx, and antegrade nephrostogram was performed, confirming intraluminal position of the needle tip. However, the 0.018 inch microwire could not be adva nced. Additional attempts were then made, however, the patient continued to experience severe pain despite local anesthesia and moderate sedation. At this point, the procedure was terminated. There were no immediate complications. FINDINGS: Ultrasound of the left kidney shows no hydronephrosis. Intravenous pyelography shows nondilated renal collecting system. IMPRESSION: Unsuccessful ultrasound and fluoroscopic guided placement of a left nephrostomy tube for urinary diversion due to nondilated collecting system and inadequate anesthesia. Additional attempts may be considered with deep sedation provided by anesthesiology. Report Dictated on --- Final --- Dictated: 12/22/2020 2:25 pm Dictating Physician: MD ARMENDARIZ KEVIN Signed Date and Time: 12/22/2020 2:33 pm Signed by: MD ARMENDARIZ KEVIN Transcribed Date and Time: 12/22/2020 2:25 Labs: Admission on 12/21/2020 Component Date Value Ref Range Status Sodium 12/21/2020 137 135 - 145 mmol/L Final Potassium 12/21/2020 5.0 3.5 - 5.1 mmol/L Final Slightly hemolysed, interpret with caution. Chloride 12/21/2020 104 98 - 107 mmol/L Final CO2 12/21/2020 27 22 - 30 mmol/L Final Anion Gap 12/21/2020 5 3 - 13 mmol/L Final Glucose 12/21/2020 86 70 - 100 mg/dL Final BUN 12/21/2020 16 7 - 20 mg/dL Final CREATININE 12/21/2020 1.08 0.52 - 1.25 mg/dL Final eGFR 12/21/2020 85.0 >60 mL/min Final EGFR IF NonAfrican [place]ian 12/21/2020 73.4 >60 mL/min Final Comment: KDIGO guidelines provide the following GFR categories: Stage GFR(ml/min/1.73 m2) Terms G1 >=90 Normal or high G2 60-89 Mildly decreased* G3a 45-59 Mildly to moderately decreased G3b 30-44 Moderately to severely decreased G4 15-29 Severely decreased G5 <15 Kidney failure *Relative to young adult level. In the absence of evidence of kidney damage, neither GFR category G1 nor G2 fulfill the criteria for CKD. The CKD-EPI equation is validated in individuals 18 years of age and older. Currently the best equation for estimating glomerular filtration rate (GFR) from serum creatinine in children is the Bedside Boyer equation. It is less accurate in patients with extremes of muscle mass, restriction of dietary protein, ingestion of creatine, extra-renal metabolism of creatinine, or treatment with medications that affect renal tubular creatinine secretion. Calcium 12/21/2020 9.1 8.4 - 10.4 mg/dL Final Albumin,Serum 12/21/2020 4.0 3.5 - 5.0 g/dL Final Slightly hemolysed, interpret with caution. Total Protein 12/21/2020 7.3 6.3 - 8.2 g/dL Final Slightly hemolysed, interpret with caution. Total Bilirubin 12/21/2020 0.6 0.2 - 1.3 mg/dL Final Alkaline Phosphatase 12/21/2020 27* 38 - 126 U/L Final Slightly hemolysed, interpret with caution. ALT 12/21/2020 15 0 - 34 U/L Final Comment: The ALT test is performed by an updated assay method. Please note that the reference intervals have been changed and are now sex specific. AST 12/21/2020 54* 15 - 46 U/L Final Slightly hemolysed, interpret with caution. ABO Grouping 12/21/2020 AB NA Final Rh Type 12/21/2020 POS NA Final Antibody Screen 12/21/2020 NEG NA Final Glucose, Ur 12/22/2020 Normal Normal (<70) mg/dL Final . Total Protein, Urine 12/22/2020 Negative Negative mg/dL Final . Bilirubin Urine 12/22/2020 Negative Negative mg/dL Final . Urobilinogen, Urine 12/22/2020 Normal Normal (0-1) mg/dL Final . pH, Urine 12/22/2020 7.0 5.0 - 8.0 NA Final . Specific [place], Urine 12/22/2020 >1.030* 1.005 - 1.030 NA Final . Occult Blood,Urine 12/22/2020 Negative Negative mg/dL Final . Ketones, Urine 12/22/2020 Negative Negative mg/dL Final . Nitrite, Urine 12/22/2020 Negative Negative NA Final . LEUKOCYTES, UA 12/22/2020 Negative Negative Nesha/uL Final . Appearance 12/22/2020 Clear Clear NA Final . Color, Urine 12/22/2020 Light-Yellow Lt. Yellow NA Final . Procalcitonin 12/21/2020 <0.10 <0.10 ng/mL Final Interpretation 12/21/2020 See Below NA Final Comment: PCT <0.50 = Low risk of severe sepsis and/or septic shock. PCT >2.00 = High risk of severe sepsis and/or septic shock. Add On 12/21/2020 Accepted NA Final Specimen available & acceptable for analysis. WBC 12/21/2020 18.0* 3.6 - 10.7 10*3/uL Final RBC 12/21/2020 4.81 3.80 - 5.20 10*6/uL Final Hemoglobin 12/21/2020 12.4 11.7 - 16.0 g/dL Final Hematocrit 12/21/2020 38.9 35.0 - 47.0 % Final MCV 12/21/2020 81.0 79.0 - 98.0 fL Final MCH 12/21/2020 25.9* 26.0 - 34.0 pg Final MCHC 12/21/2020 31.9* 32.0 - 36.0 % Final RDW 12/21/2020 23.6* 11.5 - 14.5 % Final Platelets 12/21/2020 286 140 - 440 10*3/uL Final MPV 12/21/2020 8.5 7.4 - 10.4 fL Final Granulocytes % 12/21/2020 78.4 40.0 - 80.0 % Final Lymphocyte % 12/21/2020 14.3* 20.0 - 40.0 % Final Monocytes 12/21/2020 5.7 2.0 - 10.0 % Final Eosinophils 12/21/2020 1.4 1.0 - 6.0 % Final Basophils 12/21/2020 0.2 0.0 - 2.0 % Final Absolute Neut # 12/21/2020 14.0* 1.8 - 7.0 10*3/uL Final Absolute Lymph # 12/21/2020 2.6 1.0 - 4.3 10*3/uL Final Absolute [place] # 12/21/2020 1.0* 0.0 - 0.8 10*3/uL Final Absolute Eos # 12/21/2020 0.3 0.0 - 0.5 10*3/uL Final Absolute Baso # 12/21/2020 0.0 0.0 - 0.2 10*3/uL Final Lactic Acid 12/21/2020 1.3 0.7 - 2.0 mmol/L Final Protime 12/22/2020 10.8 9.0 - 12.0 s Final . INR 12/22/2020 1.0 0.9 - 1.1 NA Final Comment: Recommended Anticoagulant Therapy: SEE BELOW ----- INR of 2.0 - 3.0 : - Prophylaxis of Venous Thrombosis (high-risk surgery) - Treatment of Venous Thrombosis - Treatment of Pulmonary Embolism (Includes tissue heart valves, Acute Myocardial Infarction to prevent systemic embolism, Valvular Heart Disease, and Atrial Fibrillation) ----- INR of 2.5 - 3.5 : - Mechanical Prosthetic Valves (high risk) - If oral anticoagulant therapy is used to prevent Myocardial Infarction Sodium 12/23/2020 136 135 - 145 mmol/L Final Potassium 12/23/2020 4.3 3.5 - 5.1 mmol/L Final Chloride 12/23/2020 103 98 - 107 mmol/L Final CO2 12/23/2020 25 22 - 30 mmol/L Final Anion Gap 12/23/2020 7 3 - 13 mmol/L Final Glucose 12/23/2020 163* 70 - 100 mg/dL Final BUN 12/23/2020 16 7 - 20 mg/dL Final CREATININE 12/23/2020 0.84 0.52 - 1.25 mg/dL Final eGFR 12/23/2020 >90.0 >60 mL/min Final EGFR IF NonAfrican [place] 12/23/2020 >90.0 >60 mL/min Final Comment: KDIGO guidelines provide the following GFR categories: Stage GFR(ml/min/1.73 m2) Terms G1 >=90 Normal or high G2 60-89 Mildly decreased* G3a 45-59 Mildly to moderately decreased G3b 30-44 Moderately to severely decreased G4 15-29 Severely decreased G5 <15 Kidney failure *Relative to young adult level. In the absence of evidence of kidney damage, neither GFR category G1 nor G2 fulfill the criteria for CKD. The CKD-EPI equation is validated in individuals 18 years of age and older. Currently the best equation for estimating glomerular filtration rate (GFR) from serum creatinine in children is the Bedside Boyer equation. It is less accurate in patients with extremes of muscle mass, restriction of dietary protein, ingestion of creatine, extra-renal metabolism of creatinine, or treatment with medications that affect renal tubular creatinine secretion. Calcium 12/23/2020 9.3 8.4 - 10.4 mg/dL Final WBC 12/23/2020 20.3* 3.6 - 10.7 10*3/uL Final RBC 12/23/2020 4.24 3.80 - 5.20 10*6/uL Final Hemoglobin 12/23/2020 11.1* 11.7 - 16.0 g/dL Final Hematocrit 12/23/2020 34.5* 35.0 - 47.0 % Final MCV 12/23/2020 81.4 79.0 - 98.0 fL Final MCH 12/23/2020 26.3 26.0 - 34.0 pg Final MCHC 12/23/2020 32.3 32.0 - 36.0 % Final RDW 12/23/2020 21.9* 11.5 - 14.5 % Final Platelets 12/23/2020 267 140 - 440 10*3/uL Final MPV 12/23/2020 8.6 7.4 - 10.4 fL Final Granulocytes % 12/23/2020 92.7* 40.0 - 80.0 % Final Lymphocyte % 12/23/2020 3.9* 20.0 - 40.0 % Final Monocytes 12/23/2020 3.3 2.0 - 10.0 % Final Eosinophils 12/23/2020 0.0* 1.0 - 6.0 % Final Basophils 12/23/2020 0.1 0.0 - 2.0 % Final Absolute Neut # 12/23/2020 18.8* 1.8 - 7.0 10*3/uL Final Absolute Lymph # 12/23/2020 0.8* 1.0 - 4.3 10*3/uL Final Absolute [place] # 12/23/2020 0.7 0.0 - 0.8 10*3/uL Final Absolute Eos # 12/23/2020 0.0 0.0 - 0.5 10*3/uL Final Absolute Baso # 12/23/2020 0.0 0.0 - 0.2 10*3/uL Final Assessment/Plan: Addis Torres 20 y.o. female admitted for left ureteral injury Left ureteral injury - POD#5 s/p RTLH,BS for endometrial cancer complicated by thermal injury - PNT attempted by IR yesterday which was unsuccessful. POD#1 s/p cysto, retrograde pyelogram with insertion of ureteral stent - Skin Diver 0.84 this morning. - Leukocytosis increased 18->20.3. Currently on Ceftriaxone. Afebrile and nontoxic appearing - Urology on board, appreciate excellent care Further plan pending discussion with attending. Active Problems: Postoperative pain Left ureteral injury Resolved Problems: * No resolved hospital problems. * Roxann Wilson MD 12/23/2020, 8:38 AM Associated attestation - Marlon Zimmer MD - 12/23/2020 5:59 PM EDT Attending Supervising Physician's Attestation Statement I performed a history and physical examination on the patient and discussed the management with theresident physician. I reviewed and agree with the findings and plan as documented in her note . * Tye Garcia MD - 12/23/2020 7:06 AM EDT UROLOGY PROGRESS NOTE PATIENT NAME: Addis Torres DATE OF : 2000 ADMISSION DATE: 12/21/2020 4:40 PM TODAY'S DATE: 12/23/2020 Subjective Patient had left ureteral stent placed in OR yesterday after unable to place L PNT. She endorses some left flank pain from IR procedure yesterday. Lower abdominal/pelvic pain is being controlled with medication. Mild urinary frequency and dysuria from ureteral stent. Afebrile. Objective VS: BP (!) 145/87 Pulse 96 Temp 98.4 F (36.9 C) (Temporal) Resp 20 SpO2 97% Vitals: 12/23/20 0659 BP: (!) 145/87 Pulse: 96 Resp: 20 Temp: 98.4 F (36.9 C) SpO2: 97% I & O - 24hr: Intake/Output Summary (Last 24 hours) at 12/23/2020 0706 Last data filed at 12/23/2020 0502 Gross per 24 hour Intake 1800 ml Output 900 ml Net 900 ml Physical Exam: General: Neck: Resp: Abdomen: No acute distress Supple Normal effort, no respiratory distress, on room air Soft, mild lower abdominal tenderness, nondistended : Mild left flank tenderness Skin: Skin color, texture, turgor normal, no rashes or lesions Labs and Imaging Studies Labs: CBC: Recent Labs 12/21/20 1709 WBC 18.0* HGB 12.4 HCT 38.9 MCV 81.0 PLT 286 BMP: Recent Labs 12/21/20 1709 12/23/20 0146 NA 137 136 K 5.0 4.3 CL 104 103 CO2 27 25 BUN 16 16 CREATININE 1.08 0.84 Magnesium: No results found for: MG Phosphate: No results found for: PHOS PT/INR: Recent Labs 12/22/20 0528 PROTIME 10.8 INR 1.0 U/A: Lab Results Component Value Date LEUKOCYTESUR Negative 12/22/2020 GLUCOSEU Normal 12/22/2020 Urine Culture: pending Blood Culture: pending Imaging Studies: CT Urogram 12/21 IMPRESSION: Complete disruption of the left mid ureter with active flow of urine into the retroperitoneal space with extensive retroperitoneal fluid extending Assessment and Plan ASSESSMENT: 20 y.o. female with left ureteral injury s/p robotic assisted hysterectomy on 12/18. S/p left ureteral stent placement on 12/22 PLAN: -Maintain left ureteral stent for ~6 weeks. Will plan on stent removal and ureteroscopy in the OR to evaluate ureteral injury at that time -KUB shows left ureteral stent in proper position. There is not a full curl within the left kidney but the stent is passed the damaged area within the mid ureter -Start flomax, pyridium prn, and trospium for stent discomfort -Continue rocephin for urinoma. Will plan on discharging with course of po abx -Leukocytosis increased today. Continue to monitor. Patient afebrile Pawel Guan MD Urology, PGY-3 12/23/2020 8:03 AM Pager: [phone] Seen and independently evaluated by me. Minimal stent irritation Her left renal collecting system is such that we might not see a classic proximal curl in her smallleft renal pelvis (images from OR not yet in PACS) Creatinine lower today Discussed with the urology resident. I concur with the assessment and plan. PLEASE NOTE - THERE IS A SECOND PATIENT WITH HER NAME (BORN 1993) IN CURRENT RADIOLOGY PACS LISTING Tye Garcia M.D. 12/23/2020 * Tye Garcia MD - 12/22/2020 2:14 PM EDT Nephrostomy tube was unable to be placed Because of the extravasation that was noted on previous imaging, I feel that it would be indicated to determine if ureteral patency is indeed in existence. Situation was discussed with patient and we will plan cystoscopy retrograde pyelography and possible insertion of left ureteral stent All aspects of the procedure, along with the pros & cons of intervention and the potential associated risks & complications have been discussed with the patient. Questions have been answered,and informed consent has been obtained. Tye Garcia MD 12/22/20 * Madan Escobedo MD - 12/22/2020 11:17 AM EDT Patient seen in the hospital. Discussed computed tomography scan findings. Discussed need for urologic consultation as well as for interventional radiology to try to place stent. All the patient's questions were answered to the best of my ability. * Tye Garcia MD - 12/22/2020 8:36 AM EDT UROLOGY PROGRESS NOTE PATIENT NAME: Addis Torres DATE OF : 2000 ADMISSION DATE: 12/21/2020 4:40 PM TODAY'S DATE: 12/22/2020 Subjective No acute events overnight Patient complaining of bilateral lower abdominal pain this AM Had some nausea, vomiting yesterday, but none this AM Voiding without difficulty; denies any gross hematuria NPO since midnight. Objective VS: BP 127/84 Pulse 114 Temp 98.9 F (37.2 C) (Temporal) Resp 17 SpO2 94% Vitals: 12/22/20 0507 BP: 127/84 Pulse: 114 Resp: 17 Temp: 98.9 F (37.2 C) SpO2: 94% I & O - 24hr: No intake or output data in the 24 hours ending 12/22/20 0836 Physical Exam: General: Neck: Resp: Abdomen: No acute distress Supple Normal effort Soft, non-tender, nondistended : Bilateral lower abdominal/suprapubic TTP Skin: Skin color, texture, turgor normal, no rashes or lesions Labs and Imaging Studies Labs: CBC: Recent Labs 12/21/20 1709 WBC 18.0* HGB 12.4 HCT 38.9 MCV 81.0 PLT 286 BMP: Recent Labs 12/21/20 1709 NA 137 K 5.0 CL 104 CO2 27 BUN 16 CREATININE 1.08 Magnesium: No results found for: MG Phosphate: No results found for: PHOS PT/INR: Recent Labs 12/22/20 0528 PROTIME 10.8 INR 1.0 U/A: No results found for: NITRITE, LEUKOCYTESUR, PHUR, WBCUA, RBCUA, BACTERIA, SPECGRAV, BLOODU, GLUCOSEU Urine Culture: No results found for: LABURIN Blood Culture: Imaging Studies: Assessment and Plan ASSESMENT: 20 [address] findings concerning for left ureteral injury, urinoma s/p robotic assisted hysterectomy on 12/18. PLAN: - NPO for L PNT today - possible urinoma drain as well in next 24 hours - possible stent placement if PNT unable to be successfully placed - rocephin - patient voiding without difficulty currently; hold off on ocasio catheter placement - discussed with Dr. Jose Gutierrez DO Urology, PGY-3 0851 Seen and independently evaluated by me. Discussed with the urology resident. I concur with the assessment and plan. Tey Garcia M.D. 12/22/2020 * Ziyad Whipple DO - 12/22/2020 5:39 AM EDT Images from the original note were not included. [employer] Progress Note Date: 12/22/2020 Time: 6:46 AM Addis Torres 20 y.o. female POD#4 s/p RTLH,BS, & LND for endometrial cancer admitted for abdominal pain with concern for ureteral injury Patient seen and examined. She complained of of generalized abdominal pain overnight. Pain is controlled. Patient is tolerating oral intake prior to NPO. She is urinating. She denies any vaginal bleeding. She is ambulating without difficulty. She is passing flatus. She denies Fever/Chills, Chest Pain, SOB, N/V. Vitals: Vitals: 12/21/20 1750 12/22/20 0002 12/22/20 0507 BP: (!) 153/97 (!) 141/96 127/84 Pulse: 106 113 114 Resp: Temp: 98.4 F (36.9 C) 98.8 F (37.1 C) 98.9 F (37.2 C) TempSrc: Temporal Temporal Temporal SpO2: 100% 98% 94% Intake/Output: Last Shift: @[id number]@ Current Shift: No intake/output data recorded. Physical Exam: Gen: NAD, alert and cooperative HEENT: Normocephalic, atraumatic, EOMI, MMM Resp: CTABL, no WRR Card: RRR, no murmur Abd: soft, slightly tender to palpation in LLQ, ND, no rebound, no guarding. No flank pain Present BS Incisions: C/D/I Ext: No LE edema, no calf tenderness or swelling Medications: Current Facility-Administered Medications Medication Dose Route Frequency Provider Last Rate Last Admin cefTRIAXone sodium 1,000 mg in dextrose 5 % 50 mL IVPB (add-vantage) 1,000 mg Intravenous Q24H Pawel Guan MD Stopped at 12/22/20 0538 sodium chloride flush 0.9 % injection 10 mL 10 mL Intravenous 2 times per day Jen Canas, 10 mL at 12/21/20 2107 sodium chloride flush 0.9 % injection 10 mL 10 mL Intravenous PRN Jen Canas DO 0.9 % sodium chloride infusion 25 mL Intravenous PRN Jen Canas DO docusate sodium (COLACE) capsule 100 mg 100 mg Oral BID PRN Jen Canas DO acetaminophen (TYLENOL) tablet 650 mg 650 mg Oral Q4H PRN Jen Canas DO ondansetron (ZOFRAN-ODT) disintegrating tablet 4 mg 4 mg Oral Q8H PRN Jen Canas, DO 4 mg at 12/22/20 0011 Or ondansetron (ZOFRAN) injection 4 mg 4 mg Intravenous Q6H PRN Jen Canas DO 4 mg at 12/21/20 1811 lactated ringers infusion Intravenous Continuous Jen G Canas, DO 100 mL/hr at 12/21/20 1825 NewBag at 12/21/20 1825 diatrizoate meglumine-sodium (GASTROGRAFIN) 66-10 % solution 30 mL 30 mL Oral ONCE PRN Marlon Zimmer MD 30 mL at 12/21/20 2218 HYDROmorphone (DILAUDID) injection 0.5 mg 0.5 mg Intravenous Q3H PRN Jennifer Szymanski, DO Or HYDROmorphone (DILAUDID) injection 1 mg 1 mg Intravenous Q3H PRN Jennifer Szymanski, DO 1 mg at 12/22/20 0404 oxyCODONE (ROXICODONE) immediate release tablet 5 mg 5 mg Oral Q4H PRN Jennifer Szymanski, DO Or oxyCODONE (ROXICODONE) immediate release tablet 10 mg 10 mg Oral Q4H PRN Jennifer Szymanski, DO 10 mgat 12/22/20 0210 Diagnostics: Ct Abdomen Pelvis W Wo Contrast Result Date: 12/22/2020 Patient Name: ADDIS TORRES Computed Tomography ACCESSION EXAM DATE/TIME PROCEDURE ORDERING PROVIDER [id number] 12/22/2020 00:[address] Abdomen/Pelvis w/ [id number] -SZYMANSKI, + w/o Contrast JENNIFER CPT code 90553 Q9967 Reason For Exam (CT Abdomen/Pelvis w/ + w/o Contrast) possible left ureter injury, new onset LLQ pain, POD #3 s/p Robotic hysterectomy Report CT ABDOMEN AND PELVIS WITHOUT AND WITH CONTRAST - INCLUDING 3D UROGRAPHY CLINICAL INDICATION: Robotic hysterectomy with left lower quadrant pain and suspected ureteral injury Scan Parameters: Transaxial sequence through the abdomen and pelvis initially without contrast with low-dose technique. Karin ent received some oral contrast as well. Following intravenous injection of 38.5 mL of 350 mg% contrast followed by three minute delay and additional injection of the remaining 38.5 mL, post contrastsequence was performed. 15 minute delayed imaging was also performed.. Multiplanar and 3D MIP reconstruction was performed by the radiologist on an independent workstation. Dose reduction was employed with automated exposure control. COMPARISON: None. FINDINGS: Chest base: Atelectasis noted at the lung bases. There is no pleural fluid. Liver: Normal size and contour. No focal lesion. Biliary tree: Normal caliber. Spleen: Normal. Adrenals: Normal. Pancreas: Normal Kidneys/Collecting systems: No calculi are identified in the proximal collecting systems. Symmetric contrast excretion without evidence of hydronephrosis. The right ureter continues into the urinary bladder. There is irregular contrast collection extending from the level of the left mid ureter across the midline to the right retroperitoneal space on the three-minute delayed sequence and there is a much larger contrast collection throughout the region on the 15 minute delayed sequence. There is extensive nonenhanced retroperitoneal fluid Computed Tomography Report attenuation within the mid abdomen extending into the pelvis.The largest collection is noted in the presacral space with an AP dimension of 3 cm. There is no enhancement within the left distal ureter. Free fluid: There is only a small amount of free intraperito herminio fluid the left paracolic gutter. Retroperitoneal/mesenteric lymphadenopathy: None. Aorta: Normal caliber. Bowel: Normal caliber. Abdominal wall: Normal. Bladder: No filling defects are identified. Wall thickness is normal. Other pelvic organs/viscera: Uterus is absent. There are several gas emma bles in the region surrounding the bladder related to surgery. No mass is identified. Pelvic lymphadenopathy: None. Osseous structures: Normal. IMPRESSION: Complete disruption of the left mid ureter with active flow of urine into the retroperitoneal space with extensive retroperitoneal fluid extending to the pelvis. CRITICAL TEST RESULT COMMUNICATION: A message was sent via [employer] to JENNIFER SZYMANSKI on 12/22/2020 at 1:38 AM EDT. Report Dictated on Workstation: [facility] --- Final ---Dictated: 12/22/2020 1:38 am Dictating Physician: MD OSBORN JEFFREY Signed Date and Time: 12/22/2020 1:50 am Signed by: MD OSBORN JEFFREY Transcribed Date and Time: 12/22/2020 1:38 Labs: Admission on 12/21/2020 Component Date Value Ref Range Status Sodium 12/21/2020 137 135 - 145 mmol/L Final Potassium 12/21/2020 5.0 3.5 - 5.1 mmol/L Final Slightly hemolysed, interpret with caution. Chloride 12/21/2020 104 98 - 107 mmol/L Final CO2 12/21/2020 27 22 - 30 mmol/L Final Anion Gap 12/21/2020 5 3 - 13 mmol/L Final Glucose 12/21/2020 86 70 - 100 mg/dL Final BUN 12/21/2020 16 7 - 20 mg/dL Final CREATININE 12/21/2020 1.08 0.52 - 1.25 mg/dL Final eGFR 12/21/2020 85.0 >60 mL/min Final EGFR IF NonAfrican Djiboutian 12/21/2020 73.4 >60 mL/min Final Comment: KDIGO guidelines provide the following GFR categories: Stage GFR(ml/min/1.73 m2) Terms G1 >=90 Normal or high G2 60-89 Mildly decreased* G3a 45-59 Mildly to moderately decreased G3b 30-44 Moderately to severely decreased G4 15-29 Severely decreased G5 <15 Kidney failure *Relative to young adult level. In the absence of evidence of kidney damage, neither GFR category G1 nor G2 fulfill the criteria for CKD. The CKD-EPI equation is validated in individuals 18 years of age and older. Currently the best equation for estimating glomerular filtration rate (GFR) from serum creatinine in children is the Bedside Boyer equation. It is less accurate in patients with extremes of muscle mass, restriction of dietary protein, ingestion of creatine, extra-renal metabolism of creatinine, or treatment with medications that affect renal tubular creatinine secretion. Calcium 12/21/2020 9.1 8.4 - 10.4 mg/dL Final Albumin,Serum 12/21/2020 4.0 3.5 - 5.0 g/dL Final Slightly hemolysed, interpret with caution. Total Protein 12/21/2020 7.3 6.3 - 8.2 g/dL Final Slightly hemolysed, interpret with caution. Total Bilirubin 12/21/2020 0.6 0.2 - 1.3 mg/dL Final Alkaline Phosphatase 12/21/2020 27* 38 - 126 U/L Final Slightly hemolysed, interpret with caution. ALT 12/21/2020 15 0 - 34 U/L Final Comment: The ALT test is performed by an updated assay method. Please note that the reference intervals have been changed and are now sex specific. AST 12/21/2020 54* 15 - 46 U/L Final Slightly hemolysed, interpret with caution. ABO Grouping 12/21/2020 AB NA Final Rh Type 12/21/2020 POS NA Final Antibody Screen 12/21/2020 NEG NA Final Add On 12/21/2020 Accepted NA Final Specimen available & acceptable for analysis. WBC 12/21/2020 18.0* 3.6 - 10.7 10*3/uL Final RBC 12/21/2020 4.81 3.80 - 5.20 10*6/uL Final Hemoglobin 12/21/2020 12.4 11.7 - 16.0 g/dL Final Hematocrit 12/21/2020 38.9 35.0 - 47.0 % Final MCV 12/21/2020 81.0 79.0 - 98.0 fL Final MCH 12/21/2020 25.9* 26.0 - 34.0 pg Final MCHC 12/21/2020 31.9* 32.0 - 36.0 % Final RDW 12/21/2020 23.6* 11.5 - 14.5 % Final Platelets 12/21/2020 286 140 - 440 10*3/uL Final MPV 12/21/2020 8.5 7.4 - 10.4 fL Final Granulocytes % 12/21/2020 78.4 40.0 - 80.0 % Final Lymphocyte % 12/21/2020 14.3* 20.0 - 40.0 % Final Monocytes 12/21/2020 5.7 2.0 - 10.0 % Final Eosinophils 12/21/2020 1.4 1.0 - 6.0 % Final Basophils 12/21/2020 0.2 0.0 - 2.0 % Final Absolute Neut # 12/21/2020 14.0* 1.8 - 7.0 10*3/uL Final Absolute Lymph # 12/21/2020 2.6 1.0 - 4.3 10*3/uL Final Absolute [place] # 12/21/2020 1.0* 0.0 - 0.8 10*3/uL Final Absolute Eos # 12/21/2020 0.3 0.0 - 0.5 10*3/uL Final Absolute Baso # 12/21/2020 0.0 0.0 - 0.2 10*3/uL Final Lactic Acid 12/21/2020 1.3 0.7 - 2.0 mmol/L Final Protime 12/22/2020 10.8 9.0 - 12.0 s Final . INR 12/22/2020 1.0 0.9 - 1.1 NA Final Comment: Recommended Anticoagulant Therapy: SEE BELOW ----- INR of 2.0 - 3.0 : - Prophylaxis of Venous Thrombosis (high-risk surgery) - Treatment of Venous Thrombosis - Treatment of Pulmonary Embolism (Includes tissue heart valves, Acute Myocardial Infarction to prevent systemic embolism, Valvular Heart Disease, and Atrial Fibrillation) ----- INR of 2.5 - 3.5 : - Mechanical Prosthetic Valves (high risk) - If oral anticoagulant therapy is used to prevent Myocardial Infarction ] Assessment/Plan: Addis Torres 20 y.o. 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 * Ziyad Whipple DO 12/22/2020, 6:46 AM Associated attestation - Marlon Zimmer MD - 12/23/2020 8:11 AM EDT Attending Supervising Physician's Attestation Statement I performed a history and physical examination on the patient and discussed the management with theresident physician. I reviewed and agree with the findings and plan as documented in his note . Late entry. Agree w/ POC as outlined. Plan of care discussed with the patient and her mother via telephone. * Jennifer Szymanski DO - 12/22/2020 12:13 AM EDT At the bedside to assess patient. Discussed with RN pt to be going down for CT at around 1230. Pt continues to report pain in the lower pelvic area mostly in the LLQ area has not worsening since she has been here. IV and PO medications has helped a little but has not resolved the pain. Repeat vitals currently still tachycardic however bps 141/96 RR 18, afebrile SPO2 98 % on RA. Pt appears uncomfortable. Abdomen with mild distention, abdominal tenderness mostly in the LLQ area, no guarding or rebound tenderness appreciated no CVA tenderness appreciated. Awaiting imaging results at this time and will continue to closely monitor for any worsening signs or symptoms and await image results * Jennifer Szymanski DO - 12/21/2020 9:44 PM EDT Called to radiology in inquiry for transport for stat CT scan to evaluate for possible intra op injury. Per radiology will discuss with floor RN to see if pt will be ready for imaging. Spoke with RN ~ 45 min ago. Pt pain somewhat controlled. Lacti Acid nl at 1.3. Procal still pending. Will continueto closely monitor and await urgent imaging. 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 Admit Date: 12/21/2020 Attending Provider: Marlon Zimmer MD Principal Diagnosis: Left ureteral injury Other Diagnosis: Postoperative pain [G89.18] Patient Active Problem List Diagnosis Postoperative pain Left ureteral injury Depression Pelvic infection Surgical Operations & Procedures: Cystoscopy, retrograde pyelogram, insertion of left ureteral stent Consultations: Urology, psychiatry, ID Pertinent Findings & Procedures: Addis Torres is a 20 y.o. female who was directly admitted on 12/21/20 for postoperative abdominal pain and concern for ureteral injury. She had undergone RTLH, BS and oversew of left ureter for thermal injury 2 days prior to admission. CT A/P revealed left ureteral injury with spillage of urine into the abdomen. Urology was consulted and a left nephrostomy tube was attempted but unsuccessful. She underwent a cystoscopy, retrograde pyelography, insertion left ureteral stent on 12/22/20. She was started on Rocephin for prevention of infection of the urinoma. Urine culture showed ESBL producing E. Coli, so ID was consulted and patient was placed on Ertapenem. CT A/P was obtained to re-evaluatethe urinoma given persistent tachycardia, which showed increase in fluid and suspicion for infection as well as a shift in the ureteral stent. This pelvic fluid collection was unable to be drained byIR given it's small size. Decision made to place PICC line for home-going antibiotics with Ertapenem. The stent was exchanged by urology on 12/26/20. Psychiatry was consulted for depression and patient will follow up with them as outpatient. Discharged home with home care nursing on 12/28/20. Follow up in 2 weeks. Discharge instructions reviewed and questions answered. Course of patient: normal Discharge to: Home Wound Care: keep wound clean and dry Recommendations on Discharge: Medications: Addis Torres Home Medication Instructions DIOGENES:[id number] Printed on:12/28/20 1000 Medication Information ferrous gluconate (FERGON) 324 (38 Fe) MG tablet Take 324 mg by mouth daily (with breakfast) ibuprofen (ADVIL;MOTRIN) 600 MG tablet Take 1 tablet by mouth 4 times daily as needed for Pain Multiple Vitamins-Minerals (THERAPEUTIC MULTIVITAMIN-MINERALS) tablet Take 1 tablet by mouth daily oxyCODONE (ROXICODONE) 5 MG immediate release tablet Take 1 tablet by mouth every 6 hours as needed for Pain for up to 5 days. Intended supply: 3 days. Take lowest dose possible to manage pain phenazopyridine (PYRIDIUM) 200 MG tablet Take 1 tablet by mouth 3 times daily as needed (burning with urination) tamsulosin (FLOMAX) 0.4 MG capsule Take 1 capsule by mouth daily for 7 days trospium (SANCTURA) 20 MG tablet Take 1 tablet by mouth daily Activity: activity as tolerated Diet: regular diet Follow up: [address] Escobedo Condition on discharge: good and stable Discharge Date: 12/28/2020 Comments: Home care, Follow-up care, restrictions reviewed. Jen Canas DO 12/28/2020, 10:00 AM documented in this [facility] Work Phone: [phone]) 604-648204-22-2021 Hospital Discharge instructions* Discharge Instr - Other Orders* Shweta Stapleton, EMY - 12/27/2020 3:03 PM EDT Your physician has ordered skilled home care services for you. Your home care will be provided by: [facility] [phone] * Additional Instructions* Jen Canas, DO - 12/24/2020 Outpatient Counseling Providers Shereen Lunsford, Ph.D., [facility], [facility], [place], Please follow your post operative care instructions given to you by your [facility]'s office at your pre operative visit. Please call the office with questions or concerns and be sure to follow up at your scheduled post operative visit. documented in this encounterSUMMA Work Phone: Discharge summary Author Dr. Rowell [facility] December 15, 2022 3:33pm Note Date/Time December 15, 2022 3:3 2pm [facility] Medical Records Department [address] [place] [address] Instructions for Home/Discharge Instructions 12/15/22 1531 MR#: [id number] Acct: [id number] Name: ADDIS TORRES Rep #:[id number] : 2000 22 From: Jade Rowell DO PCP: Dr. Tj Willams MD Status: ADM IN Discharge Instructions Diet Discharge Diet: No restrictions Activity Discharge Activity: Return to Normal Activity Weight Bearing Status: Full weight bearing Follow Up Care Test Results: Test results from this visit will be discussed in further detail at your follow- up appointment, if applicable. Discharge Plan Admission Admit Date/Time: 12/13/22 16:40 Primary Reason for Your Visit: nausea and vomiting Attending Provider: Jade Rowell Primary Care Provider: Tj Willams Consulting Providers: Sandy Solis ; Daniel Fatima ; Corine Combs Instructions Additional Instructions / Restrictions: Avoid cannabis usage Discharge Orders/Prescriptions Prescriptions: Continued ciprofloxacin HCl [Cipro] 500 mg tablet 500 mg PO BID Qty: 14 0RF ondansetron 4 mg tablet,disintegrating 4 mg PO Q8H PRN (Reason: nausea and vomiting) Qty: 14 0RF Referrals / Follow Up: Tj Willams MD [Primary Care Provider] - Within 2 Weeks Care Physician,No Primary [Non-Staff] - Disposition Disposition (needs filled in before D/C Order can be placed): Home, Self Care 12/15/22 1533<Electronically signed by Jade Rowell DO>Jade Rowell DO CC: Dr. Tj Willams MD; Dr. Sandy Solis MD; Dr. Daniel Fatima MD; Corine Combs, ~ Signed [facility] Work Phone: Discharge summary Author Dr. Marquez [facility] December 26, 2022 10:55am Note Date/Time December 26, 2022 10: 50am [facility] Medical Records Department [address] [place] [address] Instructions for Home/Discharge Instructions 12/26/22 1048 MR#: [id number] Acct: [id number] Name: ADDIS TORRES Rep #:[id number] : 2000 22 From: Josué Marquez DO PCP: Dr. Tj Willams MD Status: ADM IN Discharge Instructions Diet Discharge Diet: - (low fat. low fresh fruit and vegetables (cooked ok). no carbonated beverages. ) Dressing / Incision Call your doctor if you observe: - (intactable nausea and vomiting. ) Follow Up Care Test Results: Test results from this visit will be discussed in further detail at your follow- up appointment, if applicable. Discharge Plan Admission Admit Date/Time: 12/24/22 09:31 Primary Reason for Your Visit: gastroparesis Attending Provider: Josué Marquez Primary Care Provider: Tj Willams Consulting Providers: Rodolfo Reid Discharge Orders/Prescriptions Prescriptions: New amitriptyline 10 mg Tablet 10 mg PO QHS Qty: 14 0RF gabapentin 100 mg Capsule 100 mg PO TIDCM Qty: 60 0RF metoclopramide HCl 5 mg/5 mL Solution 10 mg PO TIDAC Qty: 1000 0RF pantoprazole 40 mg Tablet,Delayed Release (Dr/Ec) 40 mg PO BID Qty: 60 0RF acetaminophen 500 mg capsule 1,000 mg PO Q8H PRN PRN (Reason: pain) Qty: 60 0RF Continued ondansetron 4 mg tablet,disintegrating 4 mg PO Q8H PRN (Reason: nausea and vomiting) Qty: 14 0RF Discontinued ciprofloxacin HCl [Cipro] 500 mg tablet 500 mg PO BID Qty: 14 0RF Referrals / Follow Up: [facility] [Provider Group] - Within 2 Weeks Tj Willams MD [Primary Care Provider] - Within 2 Weeks Disposition Disposition (needs filled in before D/C Order can be placed): Home, Self Care 12/26/22 1055<Electronically signed by Josué Marquez DO>Josué Marquez DO CC: Dr. Tj Willams MD; Dr. Rodolfo Reid MD ~ Signed [facility] Work Phone: Discharge summary Author Dr. Marquez [facility] December 26, 2022 10:59am Note Date/Time December 26, 2022 10: 59am [facility] Medical Records Department [address] [place] [address] Discharge Summary 12/26/22 1055 MR#: [id number] Acct: [id number] Name: ADDIS TORRES Rep #:[id number] : 2000 22 From: Josué Marquez DO PCP: Dr. Tj Willams MD Status: ADM IN Location: [place] [address] Providers Date of Admission: 12/24/22 Primary Care Physician: Dr. Tj Willams MD Consultations 12/24/22 16:27 Consult: Gastroenterology Routine Consulting Provider: [facility] Reason for Consult: cyclic vomiting EMERGENT Consult: No MD Notified: Yes Date Notified: 12/23/22 Time Notified: 14:58 Method of Notification: ER physician spoke to him Reason For Visit: CYCLIC VOMITING, ABDOMINAL PAIN Diagnosis Discharge Diagnosis (1) Gastroparesis: Status: Acute Code(s): K31.84 - Gastroparesis Plan: 3 admission this month UDS consistently positive for cannabinoids. Concerning for cannabinoid hyperemesis syndrome, though pt consistently denies this. States last use was 1 month ago. (significant other admits to him using) Pt states that she develops abdominal pain, then has N/V, only helped with pain medication. I advised no narcotics as this may exacerbate her abdominal pain. EGD shows erosive esophagitis. erythematous mucosa in cardia. Continue PPI GES abnormal. Low fat diet. Avoid fresh fruit and vegetables. Avoid carbonated beverages DW Friend, he recommended reglan. Follow up with GI as outpt. Reglan, gabapentin, Elavil, PRN zofran (2) Cyclical vomiting: Status: Acute Code(s): R11.15 - Cyclical vomiting syndrome unrelated to migraine Plan: 2.2 gastroparesis (3) Dehydration: Status: Acute Code(s): E86.0 - Dehydration Plan: Dehydration. Secondary to #1 above. Resolved Medications at Discharge Home Medications acetaminophen 500 mg capsule 1,000 mg PO Q8H PRN PRN pain #60 caps 12/26/22 amitriptyline 10 mg tablet 10 mg PO QHS #14 tabs 12/26/22 gabapentin 100 mg capsule 100 mg PO TIDCM #60 caps 12/26/22 metoclopramide HCl 5 mg/5 mL oral solution 10 mg (10 mL) PO TIDAC #1,000 mL 12/26/22 ondansetron 4 mg disintegrating tablet 4 mg PO Q8H PRN nausea and vomiting #14 tabs 12/26/22 pantoprazole 40 mg tablet,delayed release 40 mg PO BID #60 tabs 12/26/22 Hospital Course Operations None Procedures EGD Summary of Care Provided Minutes Spent on Discharge: 35 Hospital Course: 22-year-old female presents with recurrent nausea and vomiting. Patient underwent EGD that showed no acute process. Patient did have a gastric emptyingstudy that was positive. Suspect that the patient's recurrent nausea and vomiting is due to gastroparesis. Patient is not known to be a diabetic. Patient was started on Reglan as well as Elavil and gabapentin. Today, the patient is doing well and has eaten. Did have some abdominal pain last night but is able to keep it down. Patient continue with his regimen for the time being. Patient explained that this is not going to be a long-term regimen with the Reglan due to the risk of tardive dyskinesia. Patient will follow-up gastroenterology in regards to any further adjustments to medications. Additionally, patient does have positive drug screen for marijuana. Patient states that she has not consumed any marijuana in over a month. Weight / BMI Weight Weight: 97.2 kg Body Mass Index (BMI) 31.6 ABG / Lab / Microbiology Data Result Diagrams: 12/24/22 06:10 12/25/22 05:35 Laboratory: Laboratory Results - last 24 hr 12/23/22 15:50: LEEANN-1 Antibody <0.2, SS-A/Ro IgG Antibody < 0.2, SS-B/La IgG Antibody < 0.2, Sm (Rogers) Antibody <0.2, PARISH VISITOR Antibody <0.2, Scl-70 Scleroderma Ab <0.2, Double Strand DNA Ab 1, Centromere B Antibody <0.2 12/23/22 15:50: Total Protein (PEP) 7.1, Globulin 3.3, IgG Not Reportable, IgG Total 1034, IgG1 509, IgG2 455, IgG3 25, IgG4 32, IgA 178, IgM 213, Immunofixation Screen Comment, Albumin (WERNER) 3.8, Albumin/Globulin (WERNER) 1.2, Usfem-8-Puwechajt WERNER 0.3, Sxeqp-0-Tvctvfiko WERNER 0.8, Beta-Globulins (WERNER) 1.1, Gamma Globulins (WERNER) 1.1, WERNER M-Kodi , WERNER Comments Comment, c-ANCA Antibody <1:20, Atypical p-ANCA <1:20, p- ANCA Antibody <1:20 Radiography Diagnostic Testing: Radiology Impression Gastric Emptying Nuclear Medicine 12/24/22 16:59 IMPRESSION: 1. ABNORMAL 99m Tc sulfur colloid semi-solid phase (oatmeal) gastric emptying imaging examination. A. There is delayed semi-solid phase gastric emptying compared to normal controls with maintained first order kinetics throughout all components of the examination. (Jayro et al, J Nucl Med Tech 38: 186, 2010). Electronically Signed: Keegan Narvaez, at 11:57 EDT , D/C Instructions Discharge Diet: - (low fat. low fresh fruit and vegetables (cooked ok). no carbonated beverages. ) Call your doctor if you observe: - (intactable nausea and vomiting. ) Meaningful Use Info Meaningful Use Diagnoses (Choose all that apply): None applicable Discharge Plan Admission Admit Date/Time: 12/24/22 09:31 Primary Reason for Your Visit: gastroparesis Attending Provider: Josué Marquez Primary Care Provider: Tj Willams Consulting Providers: Rodolfo Reid Discharge Orders/Prescriptions Prescriptions: New amitriptyline 10 mg Tablet 10 mg PO QHS Qty: 14 0RF gabapentin 100 mg Capsule 100 mg PO TIDCM Qty: 60 0RF metoclopramide HCl 5 mg/5 mL Solution 10 mg PO TIDAC Qty: 1000 0RF pantoprazole 40 mg Tablet,Delayed Release (Dr/Ec) 40 mg PO BID Qty: 60 0RF acetaminophen 500 mg capsule 1,000 mg PO Q8H PRN PRN (Reason: pain) Qty: 60 0RF Continued ondansetron 4 mg tablet,disintegrating 4 mg PO Q8H PRN (Reason: nausea and vomiting) Qty: 14 0RF Discontinued ciprofloxacin HCl [Cipro] 500 mg tablet 500 mg PO BID Qty: 14 0RF Referrals / Follow Up: [facility] [Provider Group] - Within 2 Weeks Tj Willams MD [Primary Care Provider] - Within 2 Weeks Disposition Disposition (needs filled in before D/C Order can be placed): Home, Self Care Charges/Coding Visit Charges Inpatient E&M: 81381 Disch Hosp >30min 12/26/22 1059 <Electronically signed by Josué Marquez DO> Cosigner Signature (if applicable): CC: Dr. Tj Willams MD; Dr. Josué Marquez DO~ Signed [facility] Work Phone: Evaluation + Plan note No data available for this section [facility] Evaluation note* Diagnosis Post-op pain Other acute postoperative pain Left ureteral injury Injury, other and unspecified, other specified sites, including multiple documented in this encounter [facility] Work Phone: Evaluation note* Diagnosis Post-operative pain Other acute postoperative pain Obesity (BMI 30-39.9) Obesity, unspecified Nausea & vomiting Nausea with vomiting documented in this encounter [facility] Work Phone: Evaluation note* Diagnosis Abdominal pain Abdominal pain, unspecified site documented in this encounter [facility] Work Phone: Evaluation note* Diagnosis COVID-19 Severe malnutrition (HCC) Nutritional marasmus Hydronephrosis with ureteral stricture, not elsewhere classified documented in this encounter [facility] Work Phone: Evaluation note* Diagnosis Ureteric stone- Primary Calculus of ureter Urinary tract infection with hematuria, site unspecified Urinary retention Retention of urine, unspecified Hydronephrosis concurrent with and due to ureteral stricture Left flank pain Abdominal pain, unspecified site documented in this encounter [facility] Work Phone: Evaluation note* Diagnosis Intractable nausea and vomiting- Primary Persistent vomiting Renal colic Anxiety disorder Anxiety state, unspecified documented in this encounter [facility] Work Phone: Evaluation note* Diagnosis Pre-op testing- Primary Preoperative examination, unspecified documented in this encounter [facility] Work Phone: Evaluation note* Diagnosis Non-intractable vomiting with nausea, unspecified vomiting type- Primary Urinary tract infection with hematuria, site unspecified documented in this encounter [facility] Work Phone: Evaluation note* Diagnosis Intractable vomiting with nausea, unspecified vomiting type- Primary Acute cystitis without hematuria Acute cystitis Generalized abdominal pain Abdominal pain, generalized Intractable vomiting Persistent vomiting documented in this encounter [facility] Work Phone: Evaluation note* Diagnosis Ureteral stricture, left- Primary Stricture or kinking of ureter documented in this encounter [facility] Work Phone: Evaluation note* Diagnosis Nausea & vomiting Nausea with vomiting Severe malnutrition (HCC) Nutritional marasmus documented in this encounter [facility] Work Phone: Evaluation note* Diagnosis Urethral bleeding Other specified disorders of urethra documented in this encounter [facility] Work Phone: Evaluation noteNo assessment information available [facility] Work Phone: Evaluation note* Diagnosis Onset Date Resolution Status Abdominal pain acute Dehydration acute Intractable vomiting acute Leukocytosis acute Nausea & vomiting acute [facility] Work Phone: Evaluation note* Diagnosis Onset Date Resolution Status Abdominal pain acute Dehydration acute Intractable vomiting acute Leukocytosis acute Nausea & vomiting acute Abdominal pain acute Nausea & vomiting acute [facility] Work Phone: Evaluation note* Diagnosis Onset Date Resolution Status Abdominal pain acute Dehydration acute Intractable vomiting acute Leukocytosis acute Nausea & vomiting acute Abdominal pain acute Dehydration acute Intractable vomiting acute Leukocytosis acute Nausea & vomiting acute [facility] Work Phone: Evaluation note* Diagnosis Onset Date Resolution Status Abdominal pain resolved Dehydration resolved Intractable vomiting resolve d Leukocytosis resolved Abdominal pain resolved Dehydration resolved Intractable vomiting resolve d Leukocytosis resolved [facility] Work Phone: evaluation note* Diagnosis Onset Date Resolution Status Abdominal pain resolved Dehydration resolved Intractable vomiting resolve d Leukocytosis resolved Abdominal pain resolved Dehydration resolved Intractable vomiting resolve d Leukocytosis resolved Cyclical vomiting acute Dehydration acute Gastroparesis acute Abdominal pain resolved [facility] Work Phone: Evaluation note* Diagnosis Intractable nausea and vomiting- Primary Intractable abdominal pain Intractable nausea and vomiting Severe malnutrition (CMS/HCC) (HCC) Nutritional marasmus documented in this encounter [facility] note* Diagnosis Hypokalemia- Primary Hypopotassemia Hypokalemia Hypopotassemia Intractable abdominal pain Nausea and vomiting, unspecified vomiting type Severe malnutrition (CMS/HCC) (HCC) Nutritional marasmus documented in this encounter [facility] note* Diagnosis Abdominal pain, generalized- Primary documented in this encounter [facility] note* Diagnosis Periumbilical abdominal pain- Primary Abdominal pain, periumbilic documented in this encounter [facility] note* Diagnosis Periumbilical abdominal pain Abdominal pain, periumbilic documented in this encounter [facility] note* Diagnosis Chronic abdominal pain- Primary Abdominal pain, unspecified site Chronic pelvic pain in female Unspecified symptom associated with female genital organs Chronic abdominal pain Abdominal pain, unspecified site Chronic pelvic pain in female Unspecified symptom associated with female genital organs documented in this encounter [facility] note* Diagnosis Intractable abdominal pain- Primary Abdominal pain, generalized Nausea Nausea alone Hypokalemia Hypopotassemia [facility] Diagnosis Chronic abdominal pain- Primary Abdominal pain, unspecified site Chronic pelvic pain in female Unspecified symptom associated with female genital organs Chronic abdominal pain Abdominal pain, unspecified site Chronic pelvic pain in female Unspecified symptom associated with female genital organs [facility] Zepeda [facility] December 11, 2022 9:29pm Note Date/Time December 11, 2022 9:05 pm [facility] Medical Records Department [address] [place] [address] H&P Exam - Hospitalist 12/11/222101 MR#: [id number] Acct: [id number] Name: ADDIS TORRES Rep #:[id number] : 2000 22 From: Ashley Zepeda DO PCP: Care Physician,No Primary Status :ADM JAQUI Location: [place] [id number] HPI - General General Date of Admission: 12/11/22 Date of Service: 12/11/22 Chief Complaint: Intractable nausea and vomiting HPI Narrative ADDIS TORRES, is a 22 F who presented to the emergency department at [facility] on 12/11/2022 with intractable nausea and vomiting and left- sided abdominal pain. Her symptoms started approximately 3 days ago. She was in the ER on 12/09/2022 for similar symptoms and possibly had hematemesis however had a stable hemoglobin and Cindy-Sahni tear was suspected from retching. Shehas had no hematemesis since that time. A urinalysis was obtained and was unremarkable. She had no urological symptoms. CT of the abdomen pelvis was performed and was overall unremarkable. She does have history of marijuana use however reported she had not used any marijuana in over a month. It was felt atthat time she had cyclical vomiting syndrome and was discharged home after improvement. Patient went home and slept pretty much of the day yesterday and woke up last evening and tried to eat some chicken noodle soup after which she started vomiting again. She states that her left-sided abdominal pain is the main issue and this seems to be making her vomit more. She did ask for Dilaudidby name in the emergency department. She denies any urinary symptoms. Denies fever or chills. Vital signs on presentation today showed a temperature of 98.0, heart rate was initially 145 but has improved to 93 on last measurement, blood pressure was initially documented as 61/27 however repeat was 138/91 and she has been stable since that time, respiratory rate 16 and oxygen saturations are 100% on room air. I suspect the low blood pressure was spurious result. CBC shows a leukocytosis with a white count of 16,000 and a left shift at 81%. This has worsened in the last 24 hours. CBC was otherwise unremarkable. Chemistry panelwas overall unremarkable with normal BUN and serum creatinine. Liver function is normal. Alk phos is normal. Bilirubin is normal. Lipase was 131. She was given antiemetics and IV fluids emergency department and request for admission was made. I have ordered a repeat CT of the abdomen pelvis given the fact that her symptoms have worsened since her previous CT. [facility] Medical History Alcohol abuse Cancer Depression Endometrial cancer Hydronephrosis Hypertension Menorrhagia Non-smoker Retained ureteral stent Ureter injury Ureteral stricture, left Allergy/AdvReac Type Severity Reaction Status Date / Time ceftriaxone [From Rocephin] Allergy Hives Verified 12/09/22 18:33 promethazine [From Phenergan] Allergy Vomiting Verified 12/09/22 18:33 Ringer's solution,lactated Allergy Hives Verified 12/09/22 18:33 Family History Father No problems noted. Mother No problems noted. Surgical History History of hysterectomy for cancer History of renal stent Social History (Updated 12/11/22 @ 21:[address] Ashley Zepeda DO) household members: family Smoking Status: Never smoker alcohol intake: former substance use type: marijuana and other details: No marijuana use in the last month ROS Constitutional Constitutional: Reports anorexia and weakness; Denies change in weight, chills, fatigue, fever(s), malaise, night sweats or other Eyes Eyes: Denies blurry vision, change in eye color, change in vision, discharge from eye(s), double vision, erythema, eye pain, loss of vision or other ENT HEENT: Denies abnormal hearing, dysphagia, ear pain, epistaxis, headache(s), hearing loss, nasal congestion, nasal discharge, post nasal drip, sinus pressure, sore throat or other Cardiovascular Cardiovascular: Denies chest pain, claudication, dyspnea on exertion, edema, lightheadedness, orthopnea, palpitations, paroxysmal nocturnal dyspnea, rapid heart rate, syncope or other Respiratory/Chest Respiratory/Chest: Denies cough, dyspnea, excessive phlegm production, hemoptysis, productive cough, shortness of breath at rest, shortness of breath with exertion, wheezing or other Gastrointestinal Gastrointestinal: Reports abdominal pain, nausea and vomiting; Denies coffee ground emesis, constipation, diarrhea, dyspepsia, hematemesis, hematochezia, loose stools, melena or other Genitourinary Genitourinary: Denies burning urination, difficulty urinating, dysuria, hematuria, nocturia, urinary frequency, urinary hesitancy, urinary incontinence,urinary urgency or other Musculoskeletal Musculoskeletal: Denies arthralgias, back pain, joint pain, joint stiffness, joint swelling, myalgias, neck pain or other Neurologic Neurologic: Denies abnormal gait, abnormal speech, confusion, disequilibrium, dizziness, focal weakness, headache(s), numbness, paresthesias, seizure-like activity, seizures, syncope, tingling, tremor(s) or other Psychiatric Psychiatric: Denies anxiety, depression, homicidal ideation, suicidal ideation or other Hematologic/Lymphatic Hematologic/Lymphatic: Denies anemia, easy bleeding, easy bruising, lymphadenopathy or other Allergic/Immunologic Allergic/Immunologic: Denies rhinitis, hives, eczemia, asthma or other Vital Signs Vital Signs Vital Signs: 12/11/22 16:59 12/11/22 17:13 12/11/22 20:39 Temperature 98.0 F Temperature Source Temporal Pulse Rate 145 H 113 H 106 H Respiratory Rate 16 18 18 Blood Pressure 61/27 L 138/91 H 142/102 H Blood Pressure Mean 38 106 115 Pulse Ox 100 100 98 Oxygen Delivery Method Room Air Room Air Room Air Weight Weight: 96.3 kg Body Mass Index (BMI) 31.3 Physical Exam Const alert, oriented x3 and average body habitus; Negative for no apparent distress Constitutional Narrative: Obese, ill-appearing, young, white female, sitting up in bed retching, at bedside, appears nontoxic General Appearance: cooperative HEENT normocephalic, head/scalp atraumatic, hearing grossly normal bilaterally and moist oral mucous membranes HEENT Narrative: Mallampati 2, no thrush Eyes PERRL, EOMs intact bilaterally and conjunctivae normal Eyes Narrative: No scleral icterus Neck no lymphadenopathy, supple and no JVD Neck Narrative: Trachea midline, no thyroid enlargement Resp normal respiratory effort, no retractions, no use of accessory muscles and clearto auscultation bilaterally Auscultation: Negative for rales, rhonchi or wheezes Cardio regular rhythm, S1 normal heart sound, S2 normal heart sound, no murmurs, no rub, no gallops, no clicks and no JVD Cardio Narrative: Slightly tachycardic GI Negative for non-tender GI Narrative: Bowel sounds are slightly hypoactive, abdomen is nondistended and normal to inspection, tender on the left side of abdomen diffusely, no distention Palpation: tender LLQ and LUQ; Negative for guarding Extremity no clubbing, cyanosis or edema Extremity Narrative: Pedal pulses are 2+ Skin no rashes or lesions noted, no wounds, skin turgor normal, no jaundice, no petechiae and no mottling Neuro oriented x3, CN's II-XII intact bilaterally, moves all extremities and no focal motor deficits Speech: speech normal Psych Psych Narrative: Affect is flat which would be appropriate for her current situation Mood & Affect: anxious Results Lab / Micro Data Result Diagrams: 12/11/22 18:00 12/11/22 18:00 Labs: Laboratory Results - last 24 hr 12/11/22 18:00: WBC 16.0 H, RBC 5.33, Hgb 14.1, Hct 43.7, MCV 82.0, MCH 26.5 L, MCHC 32.3, RDW Std Deviation 43.6, RDW Coeff of Roz 14.6, Plt Count 285, MPV 9.4, Immature Gran % (Auto) 0.300, Neut % (Auto) 81.0 H, Lymph % (Auto) 12.5 L, [place] % (Auto) 4.0, Eos % (Auto) 2.0, Baso % (Auto) 0.2, Absolute Neuts (auto) 12.9 H, Absolute Lymphs (auto) 1.99, Nucleated RBC % 0 12/11/22 18:00: Sodium 139, Potassium 3.5, Chloride 106, Carbon Dioxide 23.0, Anion Gap 10, BUN 11, Creatinine 1.02, Estim Creat Clear Calc 90.41, Est GFR (MDRD) Af Amer 87, Est GFR (MDRD) Non-Af 72, BUN/Creatinine Ratio 10.8, Glucose 104, Calcium 9.9, Total Bilirubin 0.30, AST 13 L, ALT 26, Alkaline Phosphatase 61, Total Protein 8.8 H, Albumin 4.5, Globulin 4.3 H, Albumin/Globulin Ratio 1.0, Lipase 131 Assessment & Plan Assessment/Plan (1) Abdominal pain: (2) Nausea & vomiting: (3) Intractable vomiting: (4) Leukocytosis: (5) Dehydration: PLAN: Plan Left-sided abdominal pain/intractable nausea and vomiting -Etiology is unclear at this time however patient does have history of cyclical vomiting syndrome -It appears overall she has been doing well since her ureter was reconnected -UA was unremarkable yesterday -CT with IV contrast done yesterday and showed only small foci of air in the urinary bladder and no other acute findings however symptoms have worsened sinceyesterday therefore we will repeat CT of the abdomen pelvis--> would like to give oral contrast however patient will not tolerate given severe nausea vomiting -We will utilize as needed Haldol and Compazine for antiemetics--> Zofran has been ineffective -Start scopolamine patch -Clear liquid diet for now and advance as tolerated -IV fluids at 100 cc/h with normal saline--> would prefer LR however patient hasan allergy to LR -Patient states she is having bowel movements and passing flatus -We will utilize Protonix 40 mg IV push daily Leukocytosis -Worsened since yesterday and left shift is present -Could potentially be due to dehydration -Check CT of the abdomen pelvis -UA done on 12/10/2022 was unremarkable for any signs of infection -Repeat CBC in a.m. Dehydration -Renal function is stable -IV fluids with normal saline at 100 cc/h -Continue to monitor renal function and electrolytes History of left ureteral injury -Patient was undergoing total hysterectomy due to uterine cancer in early 2020 at which time she had a left ureteral injury -Was recently reversed by Dr. Barahona at [facility] -Clinically doing well History of endometrial cancer -Stable DVT prophylaxis -Lovenox daily CODE STATUS -Full code Charges/Coding Visit Charges Inpatient E&M: 80431 Init Hosp L2 12/11/222128 <Electronically signed by Ashley Zepeda DO> Cosigner Signature (if applicable): CC: Dr. Ashley Zepeda, ; No Primary Care Physician~ Signed [facility] Work Phone: Hospital Discharge instructions* Attachments The following attachments cannot be sent through Care Everywhere. * Nausea and Vomiting (Turkmen) [facility]* Attachments The following attachments cannot be sent through Care Everywhere. * Nausea and Vomiting (Turkmen) * UTI (Urinary Tract Infection): Female (Turkmen) documented in this [facility] Work Phone: Hospital Discharge instructions No data available for this section [facility] Hospital Discharge instructions* Instructions* Denton Brown MD - 09/19/2021 Images from the original note were not included. Constipation: Care Instructions Overview Constipation means that you have a hard time passing stools (bowel movements). People pass stools from 3 times a day to once every 3 days. What is normal for you may be different. Constipation may occur with pain in the rectum and cramping. The pain may get worse when you try to pass stools. Sometimes there are small amounts of bright red blood on toilet paper or the surface of stools. This is because of enlarged veins near the rectum (hemorrhoids). A few changes in your diet and lifestyle may help you avoid ongoing constipation. Your doctor may also prescribe medicine to help loosen your stool. Some medicines can cause constipation. These include pain medicines and antidepressants. Tell your doctor about all the medicines you take. Your doctor may want to make a medicine change to ease yoursymptoms. Follow-up care is a farah part of your treatment and safety. Be sure to make and go to all appointments, and call your doctor if you are having problems. It's also a good idea to know your test resultsand keep a list of the medicines you take. How can you care for yourself at home? Drink plenty of fluids. If you have kidney, heart, or liver disease and have to limit fluids, talk with your doctor before you increase the amount of fluids you drink. Include high-fiber foods in your diet each day. These include fruits, vegetables, beans, and whole grains. Get at least 30 minutes of exercise on most days of the week. Walking is a good choice. You also may want to do other activities, such as running, swimming, cycling, or playing tennis or team sports. Take a fiber supplement, such as Citrucel or Metamucil, every day. Read and follow all instructionson the label. Schedule time each day for a bowel movement. A daily routine may help. Take your time having a bowel movement, but don't sit for more than 10 minutes at a time. And don't strain too much. Support your feet with a small step stool when you sit on the toilet. This helps flex your hips andplaces your pelvis in a squatting position. Your doctor may recommend an [id number] laxative to relieve your constipation. Examples are Milk of Magnesia and MiraLax. Read and follow all instructions on the label. Do not use laxatives on a long-term basis. When should you call for help? Call your doctor now or seek immediate medical care if: You have new or worse belly pain. You have new or worse nausea or vomiting. You have blood in your stools. Watch closely for changes in your health, and be sure to contact your doctor if: Your constipation is getting worse. You do not get better as expected. Where can you learn more? Go to [email or web address] and sign in to your [employer] account. Enter P343 in the Search Health Information box to learn more about Constipation: Care Instructions. If you do not have an account, please click on the Sign Up Now link. Current as of: March 07, 2021 Content Version: 13. [employer]. Care instructions adapted under license by [employer]. If you have questions about a medical condition or this instruction, always ask your healthcare professional. [employer] disclaims any warranty or liability for your use of this information. documented [facility]: Hospital Discharge instructions Additional Instructions Plenty of fluids and rest. Slowly increase diet as tolerated. Use your home nausea medications as prescribed. Return if getting worse or not improving. Follow-up your primary care physician to ensure you are improving.[facility] Work Phone: Hospital Discharge instructions Additional Instructions Call Dr. Combs for further refills of your medications. Reschedule your appointment that you had with him today.[facility] Work Phone: Progress note No data available for this section [facility] Reason for visit Narrative* Outpatient Procedure (Routine) - Closed Specialty Diagnoses / Procedures Referred By Ana t Referred To Contact [facility] Diagnoses Periumbilical abdominal pain Procedures EGD - THERAPEUTIC, EUS, OR TUBE INTERVENTIONS EGD TRANSORAL BIOPSY SINGLE/MULTIPLE Nino Butler MD [address] [place] [address] Phone: tel: fax: [facility] [address] [place] [address] Referral ID Status Reason Start Date Expiration Date V isits Requested Visits Authorized [id number] Closed Auto-Generate d Referral 12/23/2024 09/06/2025 1 1 [facility] Discharge Instructions * Instructions* Bety Vizcaino, RN - 12/11/2020 As a reminder you will be asked to provide a urine sample upon arrival at Same Day Surgery. Please do not void prior to arrival.CHG shower kit and instructions given to patient. Please remember to use the night before surgery and day of surgery. Clean sheets and clothes should be used after each use. Please bring your [facility] Surgical Information folder on the day of surgery. Please jade the last dose taken (date and time ) on your Daily Medications List provided in your After Visit Summary. Please bring a photo ID and insurance information Do NOT take the following medications on the morning of surgery ferrous gluconate , multivitamins TAKE the following medications the morning of your surgery megace You may take your prescription pain medications. You may take Tylenol (Acetaminophen) if needed forpain. No Motrin, Ibuprofen, or Advil 24 hours prior to surgery, or longer if instructed by your surgeon. No Aleve or Naprosyn 3 days prior to surgery, or longer if instructed by your surgeon. Additional instructions follow any further instructions that dr escobedo may have given to you You will receive a reminder call the day before surgery with your Same Day Surgery arrival time. If you have specific questions, please call your surgeon. * Attachments The following attachments cannot be sent through Care Everywhere. * Hysterectomy: Vaginal Laparoscopic-Assisted: Post-op (Turkmen) * Hysterectomy: Vaginal Laparoscopic-Assisted: Pre-op (Turkmen) documented in this encounter Advance Directives No Advanced Directives Records Found Date Activated Date Inactivated Comments 03/17/2025 6:09 PM 03/19/2025 1:45 AM Question Answer Comments Full Code Order Discussed With: Patient Date Activated Date Inactivated Comments 12/05/2024 11:03 AM 12/10/2024 3:10 PM Question Answer Comments Full Code Order Discussed With: Patient Date Activated Date Inactivated Comments 10/06/2024 10:37 PM 10/16/2024 4:16 PM Question Answer Comments Full Code Order Discussed With: Patient Date Activated Date Inactivated Comments 08/14/2024 2:43 AM 09/05/2024 9:25 PM Question Answer Comments Full Code Order Discussed With: Patient Date Activated Date Inactivated Comments 07/30/2024 12:04 AM 08/14/2024 12:59 AM Question Answer Comments Full Code Order Discussed With: Patient Latest Code Status on File Code Status Date Activated Date Inactivated Comments Full Code 12/21/2020 4:48 PM Full Code 12/18/2020 10:39 AM 12/18/2020 7:43 PM Latest Code Status on File Code Status Date Activated Date Inactivated Comments Full Code 12/30/2020 3:49 PM Full Code 12/21/2020 4:48 PM 12/28/2020 5:49 PM Latest Code Status on File Code Status Date Activated Date Inactivated Comments Full Code 01/13/2021 2:09 AM Full Code 12/30/2020 3:49 PM 01/03/2021 7:13 PM Latest Code Status on File Code Status Date Activated Date Inactivated Comments Full Code 01/21/2021 11:09 PM Full Code 01/13/2021 2:09 AM 01/14/2021 4:38 PM Latest Code Status on File Code Status Date Activated Date Inactivated Comments Full Code 02/12/2021 12:31 AM Full Code 01/21/2021 11:09 PM 01/25/2021 11:30 PM Latest Code Status on File Code Status Date Activated Date Inactivated Comments Full Code 02/27/2021 11:19 AM Full Code 02/23/2021 1:57 PM 02/27/2021 11:19 AM Full Code 02/12/2021 12:31 AM 02/13/2021 6:04 PM Latest Code Status on File Code Status Date Activated Date Inactivated Comments Full Code 02/27/2021 11:19 AM 03/10/2021 5:55 PM Latest Code Status on File Code Status Date Activated Date Inactivated Comments Full Code 08/25/2021 11:20 PM 08/28/2021 6:58 PM Full Code 07/24/2021 10:56 PM 08/01/2021 6:18 PM Full Code 02/27/2021 11:19 AM 03/10/2021 5:55 PM Latest Code Status on File Code Status Date Activated Date Inactivated Comments Full Code 09/04/2021 4:46 AM Full Code 08/25/2021 11:20 PM 08/28/2021 6:58 PM Latest Code Status on File Code Status Date Activated Date Inactivated Comments Full Code 09/09/2021 5:46 PM Full Code 09/09/2021 11:05 AM 09/09/2021 5:46 PM Full Code 09/04/2021 4:46 AM 09/07/2021 5:04 PM Latest Code Status on File Code Status Date Activated Date Inactivated Comments Full Code 09/14/2021 11:48 AM Full Code 09/09/2021 5:46 PM 09/11/2021 4:54 PM Latest Code Status on File Code Status Date Activated Date Inactivated Comments Full Code 09/14/2021 11:48 AM 09/19/2021 1:23 PM Advance Directive Response Recorded Date/ Time Advance Directives No November 08 11:10am Living Will No October 14 1:17am Power of Shoe Stitcher No October 14, 2021 1:17am Advance Directive Response Recorded Date/ Time Advance Directives No November 08 11:10am Living Will No December 10, 2021 4:37pm Power of Shoe Stitcher No December 10 4:37pm Advance Directive Response Recorded Date/ Time Advance Directives No November 08 11:10am Living Will No December 21, 2021 10:37pm Power of Shoe Stitcher No December 21 10:37pm Advance Directive Response Recorded Date/ Time Advance Directives No November 08 10:10am Living Will No October 08 9:56pm Power of Shoe Stitcher No October 08, 2022 9:56pm Advance Directive Response Recorded Date/ Time Advance Directives No November 08 11:10am Living Will No December 09, 2022 7:38pm Power of Shoe Stitcher No December 09 7:38pm Advance Directive Response Recorded Date/ Time Advance Directives No November 08 11:10am Living Will No December 11, 2022 5:12pm Power of Shoe Stitcher No December 11 5:12pm Advance Directive Response Recorded Date/ Time Advance Directives No November 08 11:10am Living Will No December 11, 2022 10:24pm Power of Shoe Stitcher No December 11 10:24pm Advance Directive Response Recorded Date/ Time Advance Directives No November 08 11:10am Living Will No December 13, 2022 10:44am Power of Shoe Stitcher No December 13 10:44am Advance Directive Response Recorded Date/ Time Advance Directives No November 08 11:10am Living Will No December 13, 2022 8:41pm Power of Shoe Stitcher No December 13 8:41pm Advance Directive Response Recorded Date/ Time Advance Directives No November 08 11:10am Living Will No December 22, 2022 1:16am Power of Shoe Stitcher No December 22 1:16am Advance Directive Response Recorded Date/ Time Advance Directives No November 08 11:10am Living Will No December 23, 2022 3:06pm Power of Shoe Stitcher No December 23 3:06pm Advance Directive Response Recorded Date/ Time Advance Directives No November 08 11:10am Living Will No June 01, 2023 2:56pm Power of Shoe Stitcher No May 2:56pm Date Activated Date Inactivated Comments 09/15/2024 4:16 PM 09/16/2024 8:05 PM Date Activated Date Inactivated Comments 09/17/2024 10:16 PM 09/28/2024 4:15 PM Date Activated Date Inactivated Comments 09/15/2024 4:16 PM 09/16/2024 8:05 PM Date Activated Date Inactivated Comments 10/06/2024 10:37 PM 10/16/2024 4:16 PM Date Activated Date Inactivated Comments 08/14/2024 2:43 AM 09/05/2024 9:25 PM Date Activated Date Inactivated Comments 07/30/2024 12:04 AM 08/14/2024 12:59 AM Date Activated Date Inactivated Comments 12/05/2024 11:03 AM 12/10/2024 3:10 PM Question Answer Comments Full Code Order Discussed With: Patient Date Activated Date Inactivated Comments 10/06/2024 10:37 PM 10/16/2024 4:16 PM Question Answer Comments Full Code Order Discussed With: Patient Date Activated Date Inactivated Comments 08/14/2024 2:43 AM 09/05/2024 9:25 PM Question Answer Comments Full Code Order Discussed With: Patient Date Activated Date Inactivated Comments 07/30/2024 12:04 AM 08/14/2024 12:59 AM Question Answer Comments Full Code Order Discussed With: Patient Date Activated Date Inactivated Comments 12/05/2024 11:03 AM 12/10/2024 3:10 PM Date Activated Date Inactivated Comments 10/06/2024 10:37 PM 10/16/2024 4:16 PM Date Activated Date Inactivated Comments 08/14/2024 2:43 AM 09/05/2024 9:25 PM Date Activated Date Inactivated Comments 07/30/2024 12:04 AM 08/14/2024 12:59 AM Date Activated Date Inactivated Comments 03/15/2025 11:33 AM 03/15/2025 3:43 PM Date Activated Date Inactivated Comments 09/17/2024 10:16 PM 09/28/2024 4:15 PM Date Activated Date Inactivated Comments 09/15/2024 4:16 PM 09/16/2024 8:05 PM Chief Complaint and Reason for Visit Chief Complaint pain in flank area NAUSEA ABDOMINAL PAIN n/v nausea/vomiting NAUSEA Chief Complaint pain in flank area NAUSEA ABDOMINAL PAIN n/v nausea/vomiting NAUSEA FLANK Chief Complaint pain in flank area NAUSEA ABDOMINAL PAIN n/v nausea/vomiting NAUSEA FLANK headache Chief Complaint dental pain, jaw, he adache Chief Complaint dental pain, jaw, he adache abd pain, n/v Chief Complaint dental pain, jaw, he adache abd pain, n/v INTRACABLE NAUSEA AND VOMITING INTRACABLE NAUSEA AND VOMITING Reason for Visit Abdominal pain Dehydration Intractable vomiting Leukocytosis Nausea & vomiting Chief Complaint dental pain, jaw, he adache abd pain, n/v INTRACABLE NAUSEA AND VOMITING INTRACABLE NAUSEA AND VOMITING INTRACABLE NAUSEA AND VOMITING Reason for Visit Abdominal pain Dehydration Intractable vomiting Leukocytosis Nausea & vomiting Chief Complaint dental pain, jaw, he adache abd pain, n/v INTRACABLE NAUSEA AND VOMITING INTRACABLE NAUSEA AND VOMITING INTRACABLE NAUSEA AND VOMITING INTRACTABLE N/V Reason for Visit Abdominal pain Dehydration Intractable vomiting Leukocytosis Nausea & vomiting Abdominal pain Nausea & vomiting Chief Complaint dental pain, jaw, he adache abd pain, n/v INTRACABLE NAUSEA AND VOMITING INTRACABLE NAUSEA AND VOMITING INTRACABLE NAUSEA AND VOMITING INTRACTABLE N/V INTRACTABLE N/V Reason for Visit Abdominal pain Dehydration Intractable vomiting Leukocytosis Nausea & vomiting Abdominal pain Dehydration Intractable vomiting Leukocytosis Nausea & vomiting Chief Complaint dental pain, jaw, he adache abd pain, n/v INTRACABLE NAUSEA AND VOMITING INTRACABLE NAUSEA AND VOMITING INTRACABLE NAUSEA AND VOMITING INTRACTABLE N/V INTRACTABLE N/V INTRACTABLE N/V n/v Reason for Visit Abdominal pain Dehydration Intractable vomiting Leukocytosis Abdominal pain Dehydration Intractable vomiting Leukocytosis Chief Complaint dental pain, jaw, he adache abd pain, n/v INTRACABLE NAUSEA AND VOMITING INTRACABLE NAUSEA AND VOMITING INTRACABLE NAUSEA AND VOMITING INTRACTABLE N/V INTRACTABLE N/V INTRACTABLE N/V INTRACTABLE N/V n/v CYCLIC VOMITING, ABDOMINAL PAIN CYCLIC VOMITING, ABDOMINAL PAIN CYCLIC VOMITING, ABDOMINAL PAIN CYCLIC VOMITING, ABDOMINAL PAIN CYCLIC VOMITING, ABDOMINAL PAIN CYCLIC VOMITING, ABDOMINAL PAIN CYCLIC VOMITING, ABDOMINAL PAIN Reason for Visit Abdominal pain Dehydration Intractable vomiting Leukocytosis Abdominal pain Dehydration Intractable vomiting Leukocytosis Cyclical vomiting Dehydration Gastroparesis Abdominal pain Chief Complaint GENERAL ILLNESS Family History No Family History Records Found Relationship Condition Age at Onset Recorded Date/T nirav Unknown Family History?- Unknown November 08, 2020 11:10am Family History?Hypertension Unknown November 15, 2018 11:51pm Family History?Hypertension Unknown November 08, 2020 11:10am Relationship Condition Age at Onset Recorded Date/T nirav Unknown Family History?- Unknown November 08, 2020 10:10am Family History?Hypertension Unknown November 15, 2018 10:51pm Family History?Hypertension Unknown November 08, 2020 10:10am Relationship Condition Age at Onset Recorded Date/T nirav mother Anxiety and depression Unknown Gastroesophageal reflux disease Unknown Summary Purpose Additional Source Comments Ordered Prescriptions (unrec ognized section and content) Prescription Sig Dispensed Refills Start Date End Da te phenazopyridine (PYRIDIUM) 200 MG tablet Take 1 tablet by mouth 3 times daily as needed (burning with urination) 60 tablet 0 12/28/2020 12/31/2020 tamsulosin (FLOMAX) 0.4 MG capsule Take 1 capsule by mouth daily for 7 days 7 capsule 0 12/29/2020 01/05/2021 trospium (SANCTURA) 20 MG tablet Take 1 tablet by mouth daily 7 tablet 0 12/29/2020 oxyCODONE (ROXICODONE) 5 MG immediate release tabletIndications:Post-o p pain Take 1 tablet by mouth every 6 hours as needed for Pain for up to 5 days. Intended supply: 3 days. Take lowest dose possible to manage pain 12 tablet 0 12/28/2020 01/02/2021 Prescription Sig Dispensed Refills Start Date End Da te ondansetron (ZOFRAN-ODT) 4 MG disintegrating tablet Take 1 tablet by mouth 3 times daily as needed for Nausea or Vomiting 21 tablet 0 01/03/2021 ciprofloxacin (CIPRO) 500 MG tablet Take 1.5 tablets by mouth 2 times daily for 4 days 12 tablet 0 01/03/2021 01/07/2021 Prescription Sig Dispensed Refills Start Date End Da te prochlorperazine (COMPAZINE) 5 MG tablet Take 1 tablet by mouth every 6 hours as needed for Nausea (if unresolved with zofran) 60 tablet 0 01/14/2021 ondansetron (ZOFRAN-ODT) [address] 1 tablet under the tongue 3 times daily as needed for Nausea or Vomiting 60 tablet 0 01/14/2021 ibuprofen (ADVIL;MOTRIN) 600 MG tablet Take 1 tablet by mouth every 6 hours as needed for Pain 60 tablet 0 01/14/2021 prochlorperazine (COMPAZINE) 5 MG tablet Take 1 tablet by mouth every 6 hours as needed for Nausea (if unresolved with zofran) 60 tablet 0 01/14/2021 01/14/2021 ondansetron (ZOFRAN-ODT) [address] 1 tablet under the tongue 3 times daily as needed for Nausea or Vomiting 60 tablet 0 01/14/2021 01/14/2021 ibuprofen (ADVIL;MOTRIN) 600 MG tablet Take 1 tablet by mouth every 6 hours as needed for Pain 60 tablet 0 01/14/2021 01/14/2021 Prescription Sig Dispensed Refills Start Date End Da te pantoprazole (PROTONIX) 40 MG tablet Take 1 tablet by mouth every morning (before breakfast) 30 tablet 3 01/26/2021 mirtazapine (REMERON) 15 MG tablet Take 1 tablet by mouth nightly 30 tablet 1 01/25/2021 mirtazapine (REMERON) 15 MG tablet Take 1 tablet by mouth nightly 30 tablet 1 01/24/2021 01/25/2021 Prescription Sig Dispensed Refills Start Date End Da te traMADol (ULTRAM) 50 MG tabletIndications: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 Intended supply: 5 days. Take lowest dose possible to manage pain 30 tablet 0 02/13/2021 02/18/2021 ketorolac (TORADOL) 10 MG tablet Take 1 tablet by mouth every 6 hours as needed for Pain 20 tablet 0 02/13/2021 02/13/2022 oxybutynin (DITROPAN XL) 10 MG extended release tablet Take 1 tablet by mouth daily as needed (bladder spasms) 30 tablet 0 02/13/2021 sulfamethoxazole-trim ethoprim (BACTRIM DS;SEPTRA DS) 800-160 MG per tablet Take 1 tablet by mouth 2 times daily for 14 days 28 tablet 0 02/13/2021 02/27/2021 polyethylene glycol (GLYCOLAX) 17 g packet Take 17 g by mouth daily as needed for Constipation 527 g 1 02/13/2021 03/15/2021 tamsulosin (FLOMAX) 0.4 MG capsuleIndications:Ur inary retention Take 1 capsule by mouth daily 30 capsule 0 02/13/2021 phenazopyridine (PYRIDIUM) 200 MG tablet Take 1 tablet by mouth 3 times daily as needed for Pain 42 tablet 0 02/13/2021 02/27/2021 Prescription Sig Dispensed Refills Start Date End Da te mirtazapine (REMERON KRISTYN-TAB) 15 MG disintegrating tablet Take 1 tablet by mouth nightly 30 tablet 3 03/10/2021 trospium (SANCTURA) 20 MG tablet Take 1 tablet by mouth 2 times daily (before meals) 60 tablet 3 03/10/2021 promethazine (PROMETHEGAN) [address] 1 suppository rectally every 6 hours as needed for Nausea 10 suppository 1 03/10/2021 03/17/2021 ondansetron (ZOFRAN-ODT) 4 MG disintegrating tablet Take 1 tablet by mouth 3 times daily as needed for Nausea or Vomiting 21 tablet 0 03/10/2021 Prescription Sig Dispensed Refills Start Date End Da te cefdinir (OMNICEF) 300 MG capsule Take 1 capsule by mouth 2 times daily for 10 days 20 capsule 0 09/03/2021 09/13/2021 cefdinir (OMNICEF) 300 MG capsule Take 1 capsule by mouth 2 times daily for 10 days 20 capsule 0 09/03/2021 09/03/2021 Prescription Sig Dispensed Refills Start Date End Da te naproxen (NAPROSYN) 500 MG tablet Take 1 tablet by mouth 2 times daily (with meals) for 14 days 28 tablet 0 09/07/2021 09/21/2021 OLANZapine (ZYPREXA) 5 MG tablet Take 1 tablet by mouth nightly 30 tablet 1 09/07/2021 Prescription Sig Dispensed Refills Start Date End Da te docusate sodium (COLACE) 100 MG capsule Take 1 capsule by mouth 2 times daily as needed for Constipation 60 capsule 0 09/11/2021 10/11/2021 oxyCODONE-acetaminoph en (PERCOCET) 5-325 MG per tabletIndications:Ure teral stricture, left Take 1 tablet by mouth every 6 hours as needed for Pain for up to 7 days. Intended supply: 3 days. Take lowest dose possible to manage pain 15 tablet 0 09/11/2021 09/18/2021 Prescription Sig Dispensed Refills Start Date End Da te polyethylene glycol (GLYCOLAX) 17 GM/SCOOP powder Take 17 g by mouth daily as needed (constipation) 510 g 0 09/19/2021 10/19/2021 Scheduled Active and Recently Administ ered Medications (unrecognized section and content) Medication Order 01/23/2021 01/24/2021 01/25/2021 0.45 % sodium chloride infusion (COMPLETED) Intravenous, at 890 mL/hr, ONCE, On Thu01/23/21 at 0900, For 1 dose, Please Initiate iv. Bolus at 9am for a 10 am renal scan 0916 (New Bag - Provider: Geena Lees RN)2041 (Stopped - Provider: Doc Grey RN) enoxaparin (LOVENOX) injection 40 mg 40 mg, Subcutaneous, DAILY, First dose on Thu01/22/21 at 0900 0918 (Given - Provider: Geena Lees RN) 1020 (Given - Provider: Geena Lees, EMY) 1125 (Not Given - Provider: Romina Garcia RN - Reason: Patient/family refused) furosemide (LASIX) injection 40 mg (COMPLETED) 40 mg, Intravenous, ONCE, On Thu01/23/21 at 1130, For 1 dose, For use with Lasix renal scan 1105 (Given - Provider: Anali Melchor, EMY) mirtazapine (REMERON) tablet 15 mg 15 mg, Oral, NIGHTLY, First dose on Lena 01/24/21 at 2100 2043 (Given - Provider: Lisa Hart, EMY) 2100 (Due) pantoprazole (PROTONIX) tablet 40 mg 40 mg, Oral, DAILY BEFORE BREAKFAST, First dose on 01/26/21 at 0700, Do not crush or break. piperacillin-tazobactam (ZOSYN) 3375 mg in dextrose 50 mL IVPB extended infusion (premix) (CANCELED) 3,375 mg, Intravenous, EVERY 8 HOURS, First dose on Thu01/22/21 at 0100, Until Discontinued 0209 (New Bag - Provider: Lisa Hart, EMY)0620 (Stopped - Provider: Lisa Hart, EMY) sodium chloride flush 0.9 % injection 5-40 mL 5-40 mL, Intravenous, EVERY 12 HOURS SCHEDULED (2 times per day), First dose on Thu01/21/21 at 2330, For Line Patency: Peripheral IV = 5 mL; Midline or Central Line = 10 mL/lumen. If following IV push medication, administer flush at same rate as the IV push. Flush volume is determined by type of infusion therapy being given. For non-viscous solutions use: Peripheral IV = 5 mL Midline or Central Line = 10 mL/lumen For viscous solutions (i.e. blood components, parenteral nutrition, contrast media, or after obtaining blood sample) use: Peripheral IV = 10 mL Midline or Central Line = 20 mL/lumen 1002 (Not Given - Provider: Geena Lees RN - Reason: IV Fluid Infusing)2048 (Not Given - Provider: Doc Grey RN - Reason: Loss of IV access) 1018 (Not Given - Provider: Geena Lees RN - Reason: Loss of IV access)2042 (Given - Provider: Lisa Hart RN) 1125 (Not Given - Provider: Romina Garcia RN - Reason: Other - Comment: Patient IV removed)2099 (Due) tamsulosin (FLOMAX) capsule 0.4 mg 0.4 mg, Oral, DAILY, First dose on Thu01/22/21 at 0900, Do not crush or break. 09 (Given - Provider: Geena Lees RN) 1020 (Given - Provider: Geena Lees RN) 1125 (Given - Provider: Romina Garcia RN) PRN Medication Order 01/23/2021 01/24/2021 01/25/2021 0.9 % sodium chloride infusion 25 mL, Intravenous, at 100 mL/hr, PRN, If patient receiving piggyback infusions without ordered maintenance IV fluids or with frequent/long duration piggyback infusions, Starting on Thu01/21/21 at 2306, Administer at the same rate as the piggyback being infused. 1229 (Stopped - Provider: Geena Lees RN) acetaminophen (TYLENOL) suppository 650 mg(Linked Group 1) 650 mg, Rectal, EVERY 6 HOURS PRN, Pain Mild (1-3), Fever, For temp greater than 100.4 F (38 C), Starting on Thu01/21/21 at 2306, Administer if oral route cannot be used. acetaminophen (TYLENOL) tablet 650 mg(Linked Group 1) 650 mg, Oral, EVERY 6 HOURS PRN, Pain Mild (1-3), Fever, For temp greater than 100.4 F (38 C), Starting on Thu01/21/21 at 2306, Maximum dose of acetaminophen is 4000 mg from all sources in 24 hours. benzonatate (TESSALON) capsule 100 mg 100 mg, Oral, 3 TIMES DAILY PRN, Cough, Starting on Thu01/21/21 at 2309 hydrOXYzine (ATARAX) tablet 10 mg 10 mg, Oral, 3 TIMES DAILY PRN, Anxiety, Starting on Thu01/22/21 at 0100 1346 (Given - Provider: Geena Lees RN) 1020 (Given - Provider: Geena Lees RN) ipratropium-albuterol (DUONEB) nebulizer solution 1 ampule 1 ampule, Inhalation, EVERY 4 HOURS PRN, Shortness of Breath, Starting on Thu01/21/21 at 2309 ketorolac (TORADOL) injection 30 mg 30 mg, Intravenous, EVERY 6 HOURS PRN, Pain Moderate (4-6), Pain Severe (7-10), 2nd line if cannot tolerate PO, Starting on Thu01/22/21 at 0909, For 5 days, Do not administer for more than 5 days. labetalol (NORMODYNE;TRANDATE) injection 10 mg 10 mg, Intravenous, EVERY 4 HOURS PRN, High Blood Pressure, SBP>160. Use first prior to hydralazine if also ordered., Starting on Thu01/21/21 at 2309, HOLD for HR<60 melatonin tablet 3 mg 3 mg, Oral, NIGHTLY PRN, Sleep, Starting on Thu01/21/21 at 2309 2048 (Given - Provider: Doc Grey RN) 204 (Given - Provider: Lisa Hart RN) ondansetron (ZOFRAN-ODT) disintegrating tablet 4 mg 4 mg, Oral, EVERY 8 HOURS PRN, Nausea, Vomiting, Starting on Thu01/21/21 at 2309 204 (Given - Provider: Doc Grey RN) oxyCODONE-acetaminophen (PERCOCET) 5-325 MG per tablet 1 tablet 1 tablet, Oral, EVERY 4 HOURS PRN, Pain Moderate (4-6), Pain Severe (7-10), Starting on Thu01/22/21 at 0909, Maximum dose of acetaminophen is 4000 mg from all sources in 24 hours. 2048 (Given - Provider: Doc Grey RN) 1020 (Given - Provider: Geena Lees RN)2042 (Given - Provider: Lisa Hart RN) 1131 (Given - Provider: Romina Garcia RN) polyethylene glycol (GLYCOLAX) packet 17 g 17 g, Oral, DAILY PRN, Constipation, Starting on Thu01/21/21 at 2306, First line therapy for constipation sodium chloride flush 0.9 % injection 5-40 mL 5-40 mL, Intravenous, PRN, Line Care, After every IV line use, Starting on Thu01/21/21 at 2306, For Line Patency: Peripheral IV = 5 mL; Midline or Central Line = 10 mL/lumen. If following IV push medication, administer flush at same rate as the IV push. Flush volume is determined by type of infusion therapy being given. For non-viscous solutions use: Peripheral IV = 5 mL Midline or Central Line = 10 mL/lumen For viscous solutions (i.e. blood components, parenteral nutrition, contrast media, or after obtaining blood sample) use: Peripheral IV = 10 mL Midline or Central Line = 20 mL/lumen Linked Groups Order Group 1: acetaminophen (TYLENOL) tablet 650 mgJump to med 650 mg, Oral, EVERY 6 HOURS PRN, Pain Mild (1-3), Fever, For temp greater than 100.4 F (38 C), Starting on Thu01/21/21 at 2306
Maximum dose of acetaminophen is 4000 mg from all sources in 24 hours.
Or acetaminophen (TYLENOL) suppository 650 mgJump to med 650 mg, Rectal, EVERY 6 HOURS PRN, Pain Mild (1-3), Fever, For temp greater than 100.4 F (38 C), Starting on Thu01/21/21 at 2306
Administer if oral route cannot be used.
Scheduled Medication Order 02/11/2021 02/12/2021 02/13/2021 0.9 % sodium chloride IV bolus 2,655 mL (COMPLETED) 2,655 mL (30 mL/kg 88.5 kg), Intravenous, at 5,310 mL/hr, Administer over 30 Minutes, ONCE, On Thu02/11/21 at 1545, For 1 dose, In accordance with Surviving Sepsis Campaign, infuse 30 mL/kg fluid challenge as rapidly as possible without overloading patient (target 30 to 60 minutes). If calculated rate exceeds 999 mL/hr, may administer wide open or using other rapid infusion mechanism. 1711 (New Bag - Provider: Rachael Cat RN)1935 (Stopped - Provider: Alicja Bass RN) acetaminophen (TYLENOL) tablet 1,000 mg (COMPLETED) 1,000 mg, Oral, ONCE, On Thu02/11/21 at 1545, For 1 dose, Maximum dose of acetaminophen is 4000 mg from all sources in 24 hours. 1603 (Given - Provider: Rachael Cat RN) cefTRIAXone sodium 1,000 mg in dextrose 5 % 50 mL IVPB (add-vantage) 1,000 mg, Intravenous, EVERY 24 HOURS, First dose on Thu02/12/21 at 0100, Until Discontinued 0249 (New Bag - Provider: Anali Poole RN)0325 (Stopped - Provider: Anali Poole, EMY)0821 (NOV Hold - Provider: [facility] [employer] - Reason: Unreviewed Transfer Orders)0958 (MAR Unhold - Provider: Radha Land, EMY) 0201 (New Bag - Provider: Anali Poole RN)0235 (Stopped - Provider: Anali Poole RN) enoxaparin (LOVENOX) injection 40 mg 40 mg, Subcutaneous, DAILY, First dose on Thu02/12/21 at 0900 0821 (MAR Hold - Provider: [facility] [employer] - Reason: Unreviewed Transfer Orders)0900 (Automatically Held - Provider: [facility] [employer])0958 (MAR Unhold - Provider: Radha Land, EMY) 0940 (Given - Provider: Shonna Herrera RN) HYDROmorphone (DILAUDID) injection 1 mg (COMPLETED) 1 mg, Intravenous, ONCE, On Thu02/11/21 at 1730, For 1 dose, If oral and IV narcotics ordered, use oral first and only use IV if oral is ineffective or cannot take oral. Do Not give oral and IV within 1 hour of each other unless specifically ordered. 1724 (Given - Provider: Rachael Cat RN) HYDROmorphone (DILAUDID) injection 1 mg (COMPLETED) 1 mg, Intravenous, ONCE, On Thu02/11/21 at 2015, For 1 dose, If oral and IV narcotics ordered, use oral first and only use IV if oral is ineffective or cannot take oral. Do Not give oral and IV within 1 hour of each other unless specifically ordered. 2016 (Given - Provider: Alicja Bass RN) ketorolac (TORADOL) injection 15 mg (COMPLETED) 15 mg, Intravenous, ONCE, On Thu02/11/21 at 1915, For 1 dose, Do not administer for more than 5 days. 1909 (Given - Provider: Rachael Cat, EMY) mirtazapine (REMERON) tablet 15 mg 15 mg, Oral, NIGHTLY, First dose on Thu02/12/21 at 0100 0431 (Given - Provider: Anali Poole RN - Comment: resched)0821 (MAR Hold - Provider: [employer] [employer] - Reason: Unreviewed Transfer Orders)0958 (MAR Unhold - Provider: Radha Land RN)2317 (Given - Provider: Anali Poole RN) 2100 (Due - Provider: Radha Land RN) ondansetron (ZOFRAN) injection 4 mg (COMPLETED) 4 mg, Intravenous, ONCE, On Thu02/11/21 at 1545, For 1 dose 1643 (Given - Provider: Rachael Cat RN) pantoprazole (PROTONIX) tablet 40 mg 40 mg, Oral, DAILY BEFORE BREAKFAST, First dose on Thu02/12/21 at 0700, Do not crush or break. 0821 (MAR Hold - Provider: [employer] [employer] - Reason: Unreviewed Transfer Orders)0958 (MAR Unhold - Provider: Radha Land RN)1000 (Held - Provider: Radha Land RN - Reason: Other) 0756 (Given - Provider: Shonna Herrera RN) piperacillin-tazobactam (ZOSYN) 4500 mg in dextrose 100 mL IVPB (premix) (COMPLETED) 4,500 mg, Intravenous, ONCE, 1 dose, On Thu02/11/21 at 1730 1724 (New Bag - Provider: Rachael Cat, EMY)1802 (Stopped - Provider: Rachael Cat RN) sodium chloride flush 0.9 % injection 10 mL 10 mL, Intravenous, EVERY 12 HOURS SCHEDULED (2 times per day), First dose on Thu02/11/21 at 2099 2016 (Given - Provider: Alicja Bass RN) 0821 (NOV Hold - Provider: [employer] [employer] - Reason: Unreviewed Transfer Orders)0900 (Automatically Held - Provider: [employer] [employer])0958 (NOV Unhold - Provider: Radha Land RN)2099 (Not Given - Provider: Anali Poole RN - Reason: IV Fluid Infusing) 075 (Given - Provider: Shonna Herrera RN)2099 (Due - Provider: Radha Land RN) sodium chloride flush 0.9 % injection 5-40 mL 5-40 mL, Intravenous, EVERY 12 HOURS SCHEDULED (2 times per day), First dose on Thu02/12/21 at 0900, For Line Patency: Peripheral IV = 5 mL; Midline or Central Line = 10 mL/lumen. If following IV push medication, administer flush at same rate as the IV push. Flush volume is determined by type of infusion therapy being given. For non-viscous solutions use: Peripheral IV = 5 mL Midline or Central Line = 10 mL/lumen For viscous solutions (i.e. blood components, parenteral nutrition, contrast media, or after obtaining blood sample) use: Peripheral IV = 10 mL Midline or Central Line = 20 mL/lumen 0821 (MAR Hold - Provider: Violeta Autohold - Reason: Unreviewed Transfer Orders)0900 (Automatically Held - Provider: Violeta Autohold)0958 (MAR Unhold - Provider: Radha Land RN)2099 (Not Given - Provider: Anali Poole RN - Reason: IV Fluid Infusing) 075 (Not Given - Provider: Shonna Herrera RN - Reason: IV Fluid Infusing)2099 (Due - Provider: Radha Land RN) tamsulosin (FLOMAX) capsule 0.4 mg 0.4 mg, Oral, DAILY, First dose on Thu02/12/21 at 0900, Do not crush or break. 0821 (NOV Hold - Provider: Violeta Autohold - Reason: Unreviewed Transfer Orders)0900 (Automatically Held - Provider: [facility]oh[facility])0958 ([facility] Unhold - Provider: Radha Land RN) 0756 (Given - Provider: Shonna Herrera RN) Continuous Medication Order 02/11/2021 02/12/2021 02/13/2021 0.9 % sodium chloride infusion Intravenous, at 150 mL/hr, CONTINUOUS, Starting on Thu02/12/21 at 0100 0134 (New Bag - Provider: Anali Poole RN)0821 ([facility] Hold - Provider: [facility] [employer] - Reason: Unreviewed Transfer Orders)0958 ([facility] Unhold - Provider: Radha Land RN)1048 (New Bag - Provider: Radha Land RN)1721 (New Bag - Provider: Radha Land RN) 0200 (New Bag - Provider: Anali Poole RN)0935 (New Bag - Provider: Shonna Herrera, EMY)1530 (Stopped - Provider: Shonna Herrera RN) PRN Medication Order 02/11/2021 02/12/2021 02/13/2021 0.9 % sodium chloride infusion 25 mL, Intravenous, at 100 mL/hr, PRN, If patient receiving piggyback infusions without ordered maintenance IV fluids or with frequent/long duration piggyback infusions, Starting on Thu02/11/21 at 1532, Administer at the same rate as the piggyback being infused. 0821 ([facility] Hold - Provider: [facility] [employer] - Reason: Unreviewed Transfer Orders)0958 ([facility] Unhold - Provider: Radha Land RN) 0.9 % sodium chloride infusion 25 mL, Intravenous, at 100 mL/hr, PRN, If patient receiving piggyback infusions without ordered maintenance IV fluids or with frequent/long duration piggyback infusions, Starting on Thu02/12/21 at 0031, Administer at the same rate as the piggyback being infused. 0821 ([facility] Hold - Provider: [facility] [employer] - Reason: Unreviewed Transfer Orders)0958 ([facility] Unhold - Provider: Radha Land RN) acetaminophen (TYLENOL) tablet 650 mg 650 mg, Oral, EVERY 4 HOURS PRN, Pain Mild (1-3), Pain Mild (1-3) or Fever greater than 100.5 F (38 C), Starting on Thu02/12/21 at 0031, If acetaminophen and ibuprofen are both ordered PRN for mild pain, may administer together. 0821 ([facility] Hold - Provider: [facility] [employer] - Reason: Unreviewed Transfer Orders)0958 ([facility] Unhold - Provider: Radha Land RN) HYDROmorphone (DILAUDID) injection 0.5 mg 0.5 mg, Intravenous, EVERY 4 HOURS PRN, breakthrough, Starting on Thu02/12/21 at 0108, If oral and IV narcotics ordered, use oral first and only use IV if oral is ineffective or cannot take oral. Do Not give oral and IV within 1 hour of each other unless specifically ordered. 0135 (Given - Provider: Anali Poole RN)0821 ([facility] Hold - Provider: [facility] [employer] - Reason: Unreviewed Transfer Orders)0958 ([facility] Unhold - Provider: Radha Land RN)1257 (Given - Provider: Radha Land RN)1720 (Given - Provider: Radha Land RN)2317 (Given - Provider: Anali Poole RN) 0347 (Given - Provider: Anali Poole RN)0756 (Given - Provider: Shonna Herrera, EMY)1320 (Given - Provider: Shonna Herrera RN) iopamidol (ISOVUE-300) 61 % injection 50 mL (COMPLETED) 50 mL, Other, IMG ONCE PRN, Other, contrast given to OR staff to be administered by sergeon interaoperatively, Starting on Thu02/12/21 at 0800, For 1 dose, Intra-op, Routine 0800 (Given by Other - Provider: Suyapa Meeks) ketorolac (TORADOL) injection 30 mg (CANCELED) 30 mg, Intravenous, EVERY 6 HOURS PRN, Pain Moderate (4-6), Pain Severe (7-10), Starting on Thu02/12/21 at 0100, For 20 doses, Do not administer for more than 5 days. 2314 (Held - Provider: Alen Henry RN - Reason: Other - Comment: not time) 0253 (Given - Provider: Anali Poole RN)0821 (MAR Hold - Provider: [facility] [employer] - Reason: Unreviewed Transfer Orders)0958 (MAR Unhold - Provider: Radha Land, EMY)1138 (Given - Provider: Do Miles RN) 0200 (Given - Provider: Anali Poole RN) ketorolac (TORADOL) injection 30 mg 30 mg, Intravenous, EVERY 6 HOURS PRN, Pain Moderate (4-6), Pain Severe (7-10), First line, Starting on Thu02/13/21 at 1527, For 17 doses, Do not administer for more than 5 days. metoclopramide (REGLAN) tablet 10 mg 10 mg, Oral, 4 TIMES DAILY PRN, nausea 2nd line, Starting on Thu02/12/21 at 0031 0821 ([facility] Hold - Provider: [facility] [employer] - Reason: Unreviewed Transfer Orders)0958 ([facility] Unhold - Provider: Radha Land RN) ondansetron (ZOFRAN) injection 4 mg(Linked Group 1) 4 mg, Intravenous, EVERY 6 HOURS PRN, Nausea, Vomiting, Starting on Thu02/12/21 at 0031, Administer if oral route cannot be used. 0134 (Given - Provider: Anali Poole RN)0821 ([facility] Hold - Provider: [facility] [employer] - Reason: Unreviewed Transfer Orders)0958 ([facility] Unhold - Provider: Radha Land RN) ondansetron (ZOFRAN-ODT) disintegrating tablet 4 mg(Linked Group 1) 4 mg, Oral, EVERY 8 HOURS PRN, Nausea, Vomiting, Starting on Thu02/12/21 at 0031 0134 (See Alternative - Provider: Anail Poole RN)0821 ([facility] Hold - Provider: [facility] [employer] - Reason: Unreviewed Transfer Orders)0958 ([facility] Unhold - Provider: Radha Land RN) phenazopyridine (PYRIDIUM) tablet 200 mg 200 mg, Oral, 3 TIMES DAILY PRN, Dysuria, Starting on Thu02/12/21 at 0031, Take with food. 0431 (Given - Provider: Anali Poole RN)0821 ([facility] Hold - Provider: Violeta Autohold - Reason: Unreviewed Transfer Orders)0958 ([facility] Unhold - Provider: Radha Land RN)1744 (Given - Provider: Radha Land RN) polyethylene glycol (GLYCOLAX) packet 17 g 17 g, Oral, DAILY PRN, Constipation, Starting on Thu02/12/21 at 0031, First line therapy for constipation 0821 ([facility] Hold - Provider: [facility] [employer] - Reason: Unreviewed Transfer Orders)0958 ([facility] Unhold - Provider: Radha Land RN) sodium chloride flush 0.9 % injection 10 mL 10 mL, Intravenous, PRN, Line Care, After every IV line use, Starting on Thu02/11/21 at 1532 0821 ([facility] Hold - Provider: Violeta Autohold - Reason: Unreviewed Transfer Orders)0958 ([facility] Unhold - Provider: Radha Land RN) sodium chloride flush 0.9 % injection 5-40 mL 5-40 mL, Intravenous, PRN, Line Care, After every IV line use, Starting on Thu02/12/21 at 0031, For Line Patency: Peripheral IV = 5 mL; Midline or Central Line = 10 mL/lumen. If following IV push medication, administer flush at same rate as the IV push. Flush volume is determined by type of infusion therapy being given. For non-viscous solutions use: Peripheral IV = 5 mL Midline or Central Line = 10 mL/lumen For viscous solutions (i.e. blood components, parenteral nutrition, contrast media, or after obtaining blood sample) use: Peripheral IV = 10 mL Midline or Central Line = 20 mL/lumen 0821 ([facility] Hold - Provider: Violeta Autohold - Reason: Unreviewed Transfer Orders)0958 ([facility] Unhold - Provider: Radha Land RN) traMADol (ULTRAM) tablet 100 mg(Linked Group 2) 100 mg, Oral, EVERY 6 HOURS PRN, Pain Severe (7-10), Starting on Thu02/13/21 at 1401 1421 (Given - Provider: Shonna Herrera, EMY) traMADol (ULTRAM) tablet 50 mg(Linked Group 2) 50 mg, Oral, EVERY 6 HOURS PRN, Pain Moderate (4-6), Starting on Thu02/13/21 at 1401 1421 (See Alternative - Provider: Shonna Herrera, EMY) Linked Groups Order Group 1: ondansetron (ZOFRAN-ODT) disintegrating tablet 4 mgJump to med 4 mg, Oral, EVERY 8 HOURS PRN, Nausea, Vomiting, Starting on Thu02/12/21 at 0031 Or ondansetron (ZOFRAN) injection 4 mgJump to med 4 mg, Intravenous, EVERY 6 HOURS PRN, Nausea, Vomiting, Starting on Thu02/12/21 at 0031
Administer if oral route cannot be used.
Group 2: traMADol (ULTRAM) tablet 50 mgJump to med 50 mg, Oral, EVERY 6 HOURS PRN, Pain Moderate (4-6), Starting on Thu02/13/21 at 1401 Or traMADol (ULTRAM) tablet 100 mgJump to med 100 mg, Oral, EVERY 6 HOURS PRN, Pain Severe (7-10), Starting on Thu02/13/21 at 1401 Scheduled Medication Order 03/08/2021 03/09/2021 03/10/2021 acetaminophen (TYLENOL) tablet 650 mg 650 mg, Oral, EVERY 4 HOURS SCHEDULED (6 times per day), First dose on Thu03/06/21 at 1200, Maximum dose of acetaminophen is 4000 mg from all sources in 24 hours. 0050 (Not Given - Provider: Berry Sanchez RN - Reason: Patient/family refused)0612 (Not Given - Provider: Berry Sanchez RN - Reason: Patient/family refused)0805 (Not Given - Provider: Shakira Hansen RN - Reason: Patient/family refused)1200 (Not Given - Provider: Shakira Hansen RN - Reason: Patient/family refused)1545 (Not Given - Provider: Shakira Hansen RN - Reason: Patient/family refused)2109 (Not Given - Provider: Maribeth Ibarra RN - Reason: Patient/family refused) 0023 (Not Given - Provider: Maribeth Ibarra RN - Reason: Patient/family refused)0345 (Not Given - Provider: Maribeth Ibarra RN - Reason: Patient/family refused)0901 (Not Given - Provider: Shakira Hansen RN - Reason: Patient/family refused)1256 (Given - Provider: Chantel Beyer RN)1601 (Given - Provider: Chantel Beyer RN)1999 (Given - Provider: Sandy Estes, MEY) 0102 (Given - Provider: Korina Dailey RN)0504 (Given - Provider: Sandy Estes RN)0917 (Not Given - Provider: Kylah Redmond RN - Reason: Other - Comment: too close to last dose)1137 (Given - Provider: Kylah Redmond RN)1600 (Due)1999 (Due) bisacodyl (DULCOLAX) suppository 10 mg 10 mg, Rectal, DAILY, First dose (after last modification) on 03/03/21 at 0900 0806 (Not Given - Provider: Shakira Hansen RN - Reason: Patient/family refused) 0902 (Not Given - Provider: Shakira Hansen RN - Reason: Patient/family refused) 0930 (Not Given - Provider: Kylah Redmond RN - Reason: Patient/family refused) erythromycin (ERYTHROCIN) 250 mg in sodium chloride 0.9 % 100 mL IVPB 250 mg, Intravenous, EVERY 8 HOURS, First dose on 03/03/21 at 1300, Until Discontinued 0611 (New Bag - Provider: Berry Sanchez RN)0711 (Stopped - Provider: Shakira Hansen RN)1417 (New Bag - Provider: Shakira Hansen RN)1517 (Stopped - Provider: Shakira Hansen RN)2109 (New Bag - Provider: Maribeth Ibarra RN) 0023 (Stopped - Provider: Maribeth Ibarra, EMY)0447 (New Bag - Provider: Maribeth Ibarra RN)0554 (Stopped - Provider: Maribeth Ibarra RN)1317 (New Bag - Provider: Shakira Hansen RN)1355 (Stopped - Provider: Meagan Montes RN)1959 (New Bag - Provider: Sandy Estes RN)2216 (Stopped - Provider: Sandy Estes RN) 0504 (New Bag - Provider: Sandy Estes RN)0701 (Stopped - Provider: Korina Dailey RN)1347 (Held - Provider: Kylah Redmond RN - Reason: Other - Comment: held per Dr. Henry)2099 (Due) heparin flush 100 UNIT/ML injection 250 Units 250 Units, Intravenous, EVERY 12 HOURS SCHEDULED (2 times per day), First dose on Thu03/04/21 at 0915, Flush each lumen of PICC not connected to a continuous infusion. 08 (Given - Provider: Shakira Hansen RN)2109 (Not Given - Provider: Maribeth Ibarra RN - Reason: IV Fluid Infusing) 900 (Given - Provider: Shakira Hansen RN)1931 (Not Given - Provider: Sandy Estes RN - Reason: IV Fluid Infusing) 921 (Given - Provider: Kylah Redmond RN)2099 (Due) heparin flush 100 UNIT/ML injection 250 Units 250 Units, Intracatheter, EVERY 12 HOURS, First dose on Thu03/04/21 at 1330, Each lumen. Do NOT administer to lumens with continuous fluids currently infusing. Line Care. Use 10 mL or larger syringe. 0050 (Given - Provider: Berry Sanchez RN)1417 (Given - Provider: Shakira Hansen RN) 0023 (Not Given - Provider: Maribeth Ibarra RN - Reason: IV Fluid Infusing)1256 (Given - Provider: Chantel Beyer RN) 0102 (Given - Provider: Korina Dailey RN)1350 (Not Given - Provider: Kylah Redmond RN - Reason: Other - Comment: picc removal for DC) lidocaine 1 % injection 5 mL 5 mL, Intradermal, ONCE, On Thu03/04/21 at 0915, For 1 dose mirtazapine (REMERON KRISTYN-TAB) disintegrating tablet 15 mg 15 mg, Oral, NIGHTLY, First dose on Thu03/03/21 at 2100 211 (Not Given - Provider: Maribeth Ibarra RN - Reason: Patient/family refused) 1999 (Given - Provider: Sandy Estes, EMY) 2099 (Due) OLANZapine (ZYPREXA) tablet 5 mg 5 mg, Oral, NIGHTLY, First dose on Thu03/05/21 at 2100 2110 (Not Given - Provider: Maribeth Ibarra RN - Reason: Patient/family refused) 1957 (Given - Provider: Sandy Estes, EMY) 2099 (Due) pantoprazole (PROTONIX) injection 40 mg(Linked Group 1) 40 mg, Intravenous, DAILY, First dose on 02/23/21 at 1415, Reconstitute with 10 mL 0.9 % sodium chloride and administer over at least 2 minutes. 0746 (Given - Provider: Shakira Hansen RN) 0901 (Given - Provider: Shakira Hansen RN) 09 (Given - Provider: Kylah Redmond, EMY) polyethylene glycol (GLYCOLAX) packet 17 g 17 g, Oral, DAILY, First dose (after last modification) on 02/24/21 at 0630, First line therapy for constipation 0807 (Not Given - Provider: Shakira Hansne RN - Reason: Patient/family refused) 900 (Not Given - Provider: Shakira Hansen RN - Reason: Patient/family refused) 929 (Not Given - Provider: Kylah Redmond RN - Reason: Patient/family refused) sennosides-docusate sodium (SENOKOT-S) 8.6-50 MG tablet 2 tablet 2 tablet, Oral, 2 TIMES DAILY, First dose (after last modification) on 03/03/21 at 0900 0807 (Not Given - Provider: Shakira Hansen RN - Reason: Patient/family refused)2110 (Not Given - Provider: Maribeth Ibarra RN - Reason: Patient/family refused) 900 (Not Given - Provider: Shakira Hansen RN - Reason: Patient/family refused)1957 (Given - Provider: Sandy Estes, EMY) 929 (Not Given - Provider: Kylah Redmond RN - Reason: Patient/family refused)2099 (Due) sodium chloride (PF) 0.9 % injection 10 mL(Linked Group 1) 10 mL, Intravenous, DAILY, First dose on 02/23/21 at 1415, Use for IV pantoprazole reconstitution. 0746 (Given - Provider: Shakira Hansen RN) 0902 (Given - Provider: Shakira Hansen RN) 0922 (Given - Provider: Kylah Redmond RN) sodium chloride flush 0.9 % injection 10 mL 10 mL, Intravenous, EVERY 12 HOURS SCHEDULED (2 times per day), First dose on Thu03/04/21 at 0915, Flush each lumen of PICC not connected to a continuous infusion. 0051 (Not Given - Provider: Berry Sanchez RN - Reason: IV Fluid Infusing)0807 (Not Given - Provider: Shakira Hansen RN - Reason: IV Fluid Infusing)2110 (Not Given - Provider: Maribeth Ibarra RN - Reason: IV Fluid Infusing) 09 (Not Given - Provider: Shakira Hansen RN - Reason: Loss of IV access)193 (Not Given - Provider: Sandy Estes RN - Reason: IV Fluid Infusing) 0931 (Not Given - Provider: Kylah Redmond RN - Reason: Other)2100 (Due) sodium chloride flush 0.9 % injection 10 mL 10 mL, Intravenous, EVERY 12 HOURS SCHEDULED (2 times per day), First dose on Thu03/04/21 at 0915, Flush each lumen of PICC not connected to a continuous infusion. 0051 (Not Given - Provider: Berry Sanchez RN - Reason: IV Fluid Infusing)0807 (Not Given - Provider: Shakira Hansen RN - Reason: Patient/family refused)2120 (Not Given - Provider: Maribeth Ibarra RN - Reason: IV Fluid Infusing) 09 (Not Given - Provider: Shakira Hansen RN - Reason: IV Fluid Infusing)193 (Not Given - Provider: Sandy Estes RN - Reason: IV Fluid Infusing) 0931 (Given - Provider: Kylah Redmond RN)2100 (Due) sodium chloride flush 0.9 % injection 10 mL 10 mL, Intracatheter, EVERY 12 HOURS, First dose on Thu03/04/21 at 1330, Administer to each lumen, regardless of whether or not fluids are infusing. Line Care. Use 10 mL or larger syringe. 0052 (Given - Provider: Berry Sanchez RN)1447 (Given - Provider: Shakira Hansen RN) 0023 (Not Given - Provider: Maribeth Ibarra RN - Reason: IV Fluid Infusing)1300 (Given - Provider: Chantel Beyer RN) 0103 (Given - Provider: Korina Dailey RN)1347 (Not Given - Provider: Kylah Redmond RN - Reason: Other - Comment: PICC removal for DC) sodium chloride flush 0.9 % injection 5-40 mL 5-40 mL, Intravenous, EVERY 12 HOURS SCHEDULED (2 times per day), First dose on Thu02/23/21 at 2100, For Line Patency: Peripheral IV = 5 mL; Midline or Central Line = 10 mL/lumen. If following IV push medication, administer flush at same rate as the IV push. Flush volume is determined by type of infusion therapy being given. For non-viscous solutions use: Peripheral IV = 5 mL Midline or Central Line = 10 mL/lumen For viscous solutions (i.e. blood components, parenteral nutrition, contrast media, or after obtaining blood sample) use: Peripheral IV = 10 mL Midline or Central Line = 20 mL/lumen 0051 (Not Given - Provider: Berry Sanchez RN - Reason: IV Fluid Infusing)0810 (Not Given - Provider: Shakira Hansen RN - Reason: Other - Comment: DUPLICATE)2111 (Not Given - Provider: Maribeth Ibarra RN - Reason: IV Fluid Infusing) 0901 (Not Given - Provider: Shakira Hansen RN - Reason: Other - Comment: DUPPLICATE)1934 (Not Given - Provider: Sandy Estes RN - Reason: IV Fluid Infusing) 0932 (Not Given - Provider: Kylah Redmond RN - Reason: Other)2100 (Due) sodium chloride flush 0.9 % injection 5-40 mL 5-40 mL, Intravenous, EVERY 12 HOURS SCHEDULED (2 times per day), First dose on Thu02/27/21 at 1145, For Line Patency: Peripheral IV = 5 mL; Midline or Central Line = 10 mL/lumen. If following IV push medication, administer flush at same rate as the IV push. Flush volume is determined by type of infusion therapy being given. For non-viscous solutions use: Peripheral IV = 5 mL Midline or Central Line = 10 mL/lumen For viscous solutions (i.e. blood components, parenteral nutrition, contrast media, or after obtaining blood sample) use: Peripheral IV = 10 mL Midline or Central Line = 20 mL/lumen, Pre-procedure(GI) 0051 (Not Given - Provider: Berry Sanchez RN - Reason: IV Fluid Infusing)0808 (Not Given - Provider: Shakira Hansen RN - Reason: Other - Comment: DUPLICATE)2110 (Not Given - Provider: Maribeth Ibarra RN - Reason: IV Fluid Infusing) 0901 (Not Given - Provider: Shakira Hansen RN - Reason: Other - Comment: DUPLICATE)193 (Not Given - Provider: Sandy Estes RN - Reason: IV Fluid Infusing) 0931 (Not Given - Provider: Kylah Redmodn RN - Reason: Other)2100 (Due) tamsulosin (FLOMAX) capsule 0.4 mg 0.4 mg, Oral, DAILY, First dose on 02/23/21 at 1830, Do not crush or break. 0809 (Not Given - Provider: Shakira Hansen RN - Reason: Patient/family refused) 0906 (Not Given - Provider: Shakira Hansen RN - Reason: Patient/family refused) 0923 (Given - Provider: Kylah Redmond RN) trospium (SANCTURA) tablet 20 mg 20 mg, Oral, 2 TIMES DAILY BEFORE MEALS, First dose (after last modification) on 02/24/21 at 1600, Administer with water on an empty stomach at least 1 hour prior to meals. 0809 (Not Given - Provider: Shakira Hansen RN - Reason: Patient/family refused)1600 (Not Given - Provider: Shakira Hansen RN - Reason: Patient/family refused) 0906 (Not Given - Provider: Shakira Hansen RN - Reason: Patient/family refused)1601 (Given - Provider: Chantel Beyer RN) 0504 (Given - Provider: Sandy Estes RN)1600 (Due) Continuous Medication Order 03/08/2021 03/09/2021 03/10/2021 PN-Adult 3 IN 1 Central Line (Custom) () Intravenous, at 125 mL/hr, Administer over 16 Hours, CONTINUOUS TPN, Starting on Thu03/08/21 at 1800, For 16 hours, NOTE: TPN changing to CYCLE starting at 6PM today, 03/06/21. TPN 16 hr CYCLE infusion rate orders are in TPN order, and as below---> 1800 - 1900 Run at 50 cc/hr X 1 hr, 1900 - 1999 Run at 75 cc/hr X 1 hr, 1999 - 08 Run at 143 cc/hr X 12 hrs, 0800 - 0900 Run at 75 cc/hr X 1 hr, 0900 - 1000 Run at 50 cc/hr X 1 hr. 1756 (New Bag - Provider: Shakira Hansen RN) 1005 (Stopped - Provider: Shakira Hansen RN) PN-Adult 3 IN 1 Central Line (Custom) Intravenous, at 125 mL/hr, Administer over 16 Hours, CONTINUOUS TPN, Starting on 03/09/21 at 1800, For 16 hours, 1800 - 1900 Run at 50 cc/hr X 1 hr, 1900 - 1999 Run at 75 cc/hr X 1 hr, 1999 - 799 Run at 143 cc/hr X 12 hrs, 0800 - 0900 Run at 75 cc/hr X 1 hr, 09 - 1000 Run at 50 cc/hr X 1 hr. 1830 (New Bag - Provider: Chantel Beyer RN)1999 (Rate/Dose Change - Provider: Sandy Estes RN) 1133 (Stopped - Provider: Kylah Redmond RN) PN-Adult 3 IN 1 Central Line (Custom) Intravenous, at 125 mL/hr, Administer over 16 Hours, CONTINUOUS TPN, Starting on 03/10/21 at 1800, For 16 hours, 1800 - 1900 Run at 50 cc/hr X 1 hr, 1900 - 1999 Run at 75 cc/hr X 1 hr, 1999 - 799 Run at 143 cc/hr X 12 hrs, 08 - 09 Run at 75 cc/hr X 1 hr, 09 - 1000 Run at 50 cc/hr X 1 hr. 1800 (Due) PRN Medication Order 03/08/2021 03/09/2021 03/10/2021 0.9 % sodium chloride infusion 25 mL, Intravenous, at 100 mL/hr, PRN, If patient receiving piggyback infusions without ordered maintenance IV fluids or with frequent/long duration piggyback infusions, Starting on 02/23/21 at 1357, Administer at the same rate as the piggyback being infused. 0.9 % sodium chloride infusion 25 mL, Intravenous, at 100 mL/hr, PRN, If patient receiving piggyback infusions without ordered maintenance IV fluids or with frequent/long duration piggyback infusions, Starting on Thu02/27/21 at 1119, Administer at the same rate as the piggyback being infused., Pre-procedure(GI) fentaNYL (SUBLIMAZE) injection (COMPLETED) ONCE PRN, Starting on Thu03/08/21 at 1551, For 1 dose 1551 (Given - Provider: Kylah Mitchell RN) glucagon (rDNA) injection 1 mg 1 mg, Intramuscular, PRN, Low blood sugar, Blood glucose less than 70 mg/dL and patient NOT ALERT or NPO and does not have IV access., Starting on Thu03/05/21 at 1601, After administration, attempt intravenous access and start D5W at 100 mL/hr. Repeat blood glucose in 15 minutes x2 and notify provider. heparin flush 100 UNIT/ML injection 250 Units 250 Units, Intravenous, PRN, Line Care, Starting on Thu03/04/21 at 0852, Flush each lumen of PICC. heparin flush 100 UNIT/ML injection 250 Units 250 Units, Intracatheter, PRN, Line Care, after blood draws and after infusion, Starting on Thu03/04/21 at 1310, Do NOT administer to lumens with continuous fluids currently infusing. Line Care. Use 10 mL or larger syringe. hydrALAZINE (APRESOLINE) injection 10 mg 10 mg, Intravenous, EVERY 6 HOURS PRN, High Blood Pressure, SBP>160, Starting on Thu02/27/21 at 0121 HYDROmorphone (DILAUDID) injection 0.5 mg 0.5 mg, Intravenous, EVERY 4 HOURS PRN, Pain Severe (7-10), break through pain only, Starting on Lena 03/07/21 at 1115, If oral and IV narcotics ordered, use oral first and only use IV if oral is ineffective or cannot take oral. Do Not give oral and IV within 1 hour of each other unless specifically ordered. 0746 (Given - Provider: Shakira Hansen RN)1158 (Given - Provider: Shakira Hansen RN)1808 (Given - Provider: Shakira Hansen RN) 0015 (Given - Provider: Maribeth Ibarra RN)0455 (Given - Provider: Maribeth Ibarra RN)0901 (Given - Provider: Shakira Hansen RN)1256 (Given - Provider: Chantel Beyer, RN)1713 (Given - Provider: Stephanie Villanueva, RN) 0101 (Given - Provider: Korina Dailey, EMY)0504 (Given - Provider: Sandy Estes, EMY)0923 (Given - Provider: Kylah Redmond, RN)1314 (Given - Provider: Lexus Kelly RN) labetalol (NORMODYNE;TRANDATE) injection 10 mg 10 mg, Intravenous, EVERY 6 HOURS PRN, High Blood Pressure, SBP >160 2nd line, Starting on Thu02/27/21 at 0121 lidocaine viscous hcl (XYLOCAINE) 2 % solution 15 mL 15 mL, Mouth/Throat, EVERY 3 HOURS PRN, Irritation, Other, throat pain, Starting on Thu03/08/21 at 1659 LORazepam (ATIVAN) injection 2 mg (COMPLETED) 2 mg, Intravenous, IMG ONCE PRN, Other, for fluoroscopic procedure, Starting on Thu03/08/21 at 1300, For 1 dose 1701 (Given - Provider: Shakira Hansen RN) LORazepam (ATIVAN) tablet 0.25 mg 0.25 mg, Oral, EVERY 4 HOURS PRN, Anxiety, Starting on Thu03/05/21 at 1418 midazolam (VERSED) injection (COMPLETED) ONCE PRN, Starting on Thu03/08/21 at 1552, For 1 dose 1552 (Given - Provider: Kylah Mitchell RN) phenol 1.4 % mouth spray 1 spray 1 spray, Mouth/Throat, EVERY 2 HOURS PRN, Sore Throat, Starting on Thu03/08/21 at 1659 1757 (Given - Provider: Shakira Hansen RN) prochlorperazine (COMPAZINE) injection 10 mg 10 mg, Intravenous, EVERY 6 HOURS PRN, Nausea, Starting on Thu03/05/21 at 1403 0746 (Given - Provider: Shakira Hansen RN)1525 (Given - Provider: Shakira Hansen RN) 1825 (Incomplete - Provider: Chantel Beyer RN) 1137 (Given - Provider: Kylah Redmond, EMY) sodium chloride flush 0.9 % injection 10 mL 10 mL, Intravenous, PRN, Line Care, Starting on Thu03/04/21 at 0852, Flush each lumen of PICC. sodium chloride flush 0.9 % injection 10 mL 10 mL, Intracatheter, PRN, Line Care, before blood draws, before and after infusion or medication administration, Starting on Thu03/04/21 at 1310, Use 10 mL or larger syringe. sodium chloride flush 0.9 % injection 5-40 mL 5-40 mL, Intravenous, PRN, Line Care, After every IV line use, Starting on 02/23/21 at 1357, For Line Patency: Peripheral IV = 5 mL; Midline or Central Line = 10 mL/lumen. If following IV push medication, administer flush at same rate as the IV push. Flush volume is determined by type of infusion therapy being given. For non-viscous solutions use: Peripheral IV = 5 mL Midline or Central Line = 10 mL/lumen For viscous solutions (i.e. blood components, parenteral nutrition, contrast media, or after obtaining blood sample) use: Peripheral IV = 10 mL Midline or Central Line = 20 mL/lumen sodium chloride flush 0.9 % injection 5-40 mL 5-40 mL, Intravenous, PRN, Line Care, After every IV line use, Starting on Thu02/27/21 at 1119, For Line Patency: Peripheral IV = 5 mL; Midline or Central Line = 10 mL/lumen. If following IV push medication, administer flush at same rate as the IV push. Flush volume is determined by type of infusion therapy being given. For non-viscous solutions use: Peripheral IV = 5 mL Midline or Central Line = 10 mL/lumen For viscous solutions (i.e. blood components, parenteral nutrition, contrast media, or after obtaining blood sample) use: Peripheral IV = 10 mL Midline or Central Line = 20 mL/lumen, Pre-procedure(GI) Linked Groups Order Group 1: pantoprazole (PROTONIX) injection 40 mgJump to med 40 mg, Intravenous, DAILY, First dose on 02/23/21 at 1415
Reconstitute with 10 mL 0.9 % sodium chloride and administer over at least 2 minutes.
And sodium chloride (PF) 0.9 % injection 10 mLJump to med 10 mL, Intravenous, DAILY, First dose on 02/23/21 at 1415
Use for IV pantoprazole reconstitution.
Scheduled Medication Order 09/01/2021 09/02/2021 09/03/2021 0.9 % sodium chloride bolus (COMPLETED) 1,000 mL (12.7 mL/kg), IntraVENous, at 2,000 mL/hr, Administer over 0.5 Hours, ONCE, On Thu09/02/21 at 2215, For 1 dose 0556 (New Bag - Provider: Lory Chowdary RN)0626 (Due: Stopped - Provider: Lory Chowdary RN) 0.9 % sodium chloride bolus (COMPLETED) 1,000 mL (12.6 mL/kg), IntraVENous, at 2,000 mL/hr, Administer over 0.5 Hours, ONCE, On Thu09/03/21 at 0130, For 1 dose 0448 (New Bag - Provider: Lory Chowdary RN)0558 (Stopped - Provider: Lory Chowdary RN) cefTRIAXone sodium 1,000 mg in dextrose 5 % 50 mL IVPB (add-vantage) (COMPLETED) 1,000 mg, IntraVENous, ONCE, 1 dose, On Thu09/03/21 at 0130 0447 (New Bag - Provider: Lory Chowdary RN)0558 (Stopped - Provider: Lory Chowdary RN) haloperidol lactate (HALDOL) injection 2 mg (COMPLETED) 2 mg, IntraVENous, ONCE, On Thu09/03/21 at 0530, For 1 dose 0553 (Given - Provid er: Lory Chowdary RN) HYDROmorphone (DILAUDID) injection 1 mg (COMPLETED) 1 mg, IntraVENous, ONCE, On Thu09/03/21 at 0615, For 1 dose, If oral and IV narcotics ordered, use oral first and only use IV if oral is ineffective or cannot take oral. Do Not give oral and IV within 1 hour of each other unless specifically ordered. 0618 (Given - Provid er: Lory Chowdary RN) ketorolac (TORADOL) injection 15 mg (COMPLETED) 15 mg, IntraVENous, ONCE, On Thu09/02/21 at 2215, For 1 dose, Do not administer for more than 5 days. 2230 (Given - Provider: Nallely Barakat RN) ketorolac (TORADOL) injection 30 mg (COMPLETED) 30 mg, IntraVENous, ONCE, On Thu09/03/21 at 0130, For 1 dose, Do not administer for more than 5 days. 0447 (Given - Provid er: Lory Chowdary RN) morphine sulfate (PF) injection 4 mg (COMPLETED) 4 mg, IntraVENous, ONCE, On Thu09/02/21 at 2215, For 1 dose, If oral and IV narcotics ordered, use oral first and only use IV if oral is ineffective or cannot take oral. Do Not give oral and IV within 1 hour of each other unless specifically ordered. 2234 (Given - Provider: Nallely Barakat, EMY) ondansetron (ZOFRAN) injection 4 mg (COMPLETED) 4 mg, IntraVENous, ONCE, On Thu09/02/21 at 2215, For 1 dose 2229 (Given - Provider: Nallely Barakat RN) ondansetron (ZOFRAN) injection 4 mg (COMPLETED) 4 mg, IntraVENous, ONCE, On Thu09/03/21 at 0345, For 1 dose 0447 (Given - Provid er: Lory Chowdary RN) sodium chloride flush 0.9 % injection 3 mL(Linked Group 1) 3 mL, IntraVENous, EVERY 8 HOURS, First dose on Thu09/02/21 at 2215, Flush line with 3-5 mL 2215 (Due) 0615 (Due)1415 (Due)2215 (Due) Linked Groups Order Group 1: Saline lock IV (COMPLETED) Routine, CONTINUOUS, Starting on Thu09/02/21 at 2200, Until Specified And sodium chloride flush 0.9 % injection 3 mLJump to med 3 mL, IntraVENous, EVERY 8 HOURS, First dose on Thu09/02/21 at 2215
Flush line with 3-5 mL
Scheduled Medication Order 09/05/2021 09/06/2021 09/07/2021 acetaminophen (TYLENOL) tablet 1,000 mg 1,000 mg, Oral, EVERY 8 HOURS SCHEDULED (3 times per day), First dose on Thu09/06/21 at 0815, Maximum dose of acetaminophen is 4000 mg from all sources in 24 hours. 0845 (Given - Provider: Aleksandra Pickens RN)1405 (Given - Provider: Aleksandra Pickens RN)2130 (Given - Provider: Reyna Childs RN) 0631 (Given - Provider: Reyna Childs RN)1310 (Given - Provider: Aleksandra Pickens RN)2200 (Due) enoxaparin (LOVENOX) injection 40 mg 40 mg, SubCUTAneous, DAILY, First dose on Thu09/04/21 at 0900 0811 (Given - Provider: Shereen Cullen RN) 0845 (Given - Provider: Aleksandra Pickens RN) 0909 (Given - Provider: Aleksandra Pickens RN) haloperidol lactate (HALDOL) injection 2 mg (COMPLETED) 2 mg, IntraVENous, ONCE, On Lena 09/05/21 at 0830, For 1 dose, IM route of administration preferred. Because of the risk of TdP and QT prolongation, ECG monitoring is recommended if haloperidol is given IV. 809 (Given - Provider: Shereen Cullen RN) haloperidol lactate (HALDOL) injection 2 mg (COMPLETED) 2 mg, IntraVENous, ONCE, On Lena 09/05/21 at 2145, For 1 dose, IM route of administration preferred. Because of the risk of TdP and QT prolongation, ECG monitoring is recommended if haloperidol is given IV. 2158 (Given - Provider: Reina Smith RN) HYDROmorphone (DILAUDID) injection 0.5 mg (COMPLETED) 0.5 mg, IntraVENous, ONCE, On Lena 09/05/21 at 2145, For 1 dose, If oral and IV narcotics ordered, use oral first and only use IV if oral is ineffective or cannot take oral. Do Not give oral and IV within 1 hour of each other unless specifically ordered. 2149 (Given - Provider: Reina Smith RN) ketorolac (TORADOL) injection 30 mg 30 mg, IntraVENous, EVERY 6 HOURS, First dose (after last modification) on Thu09/06/21 at 1500, For 2 days, FIRST LINE FOR PAIN Do not administer for more than 5 days. 1538 (Given - Provider: Aleksandra Pickens RN)2130 (Given - Provider: Reyna Childs RN) 0304 (Given - Provider: Reyna Childs RN)0908 (Given - Provider: Aleksandra Pickens RN)1500 (Due)2100 (Due) OLANZapine (ZYPREXA) tablet 5 mg 5 mg, Oral, NIGHTLY, First dose on Thu09/04/21 at 2100 214 (Not Given - Provider: Reina Smith RN - Reason: Patient/family refused) 2129 (Given - Provider: Reyna Childs, EMY) 2100 (Due) pantoprazole (PROTONIX) tablet 40 mg 40 mg, Oral, DAILY BEFORE BREAKFAST, First dose on Thu09/04/21 at 0700, Do not crush or break. 0547 (Given - Provider: French Naqvi RN) 0545 (Given - Provider: Efraín Moore RN) 0631 (Given - Provider: Reyna Childs RN) prochlorperazine (COMPAZINE) injection 10 mg (COMPLETED) 10 mg, IntraVENous, ONCE, On Thu09/05/21 at 2145, For 1 dose 2152 (Given - Provider: Reina Smith RN) sennosides-docusate sodium (SENOKOT-S) 8.6-50 MG tablet 1 tablet 1 tablet, Oral, DAILY, First dose on Thu09/04/21 at 0900 0804 (Not Given - Provider: Shereen Cullen RN - Reason: Contraindicated - Comment: pt vomiting, unable to take) 0845 (Given - Provider: Aleksandra Pickens RN) 0908 (Given - Provider: Aleksandra Pickens RN) sodium chloride flush 0.9 % injection 5-40 mL 5-40 mL, IntraVENous, EVERY 12 HOURS SCHEDULED (2 times per day), First dose on Thu09/04/21 at 0900, For Line Patency: Peripheral IV = 5 mL; Midline or Central Line = 10 mL/lumen. If following IV push medication, administer flush at same rate as the IV push. Flush volume is determined by type of infusion therapy being given. For non-viscous solutions use: Peripheral IV = 5 mL Midline or Central Line = 10 mL/lumen For viscous solutions (i.e. blood components, parenteral nutrition, contrast media, or after obtaining blood sample) use: Peripheral IV = 10 mL Midline or Central Line = 20 mL/lumen 0813 (Given - Provider: Shereen Cullen RN)2154 (Given - Provider: Reina Smith RN) 0849 (Not Given - Provider: Aleksandra Pickens RN - Reason: IV Fluid Infusing)2157 (Not Given - Provider: Reyna Childs RN - Reason: IV Fluid Infusing) 1003 (Not Given - Provider: Aleksandra Pickens RN - Reason: IV Fluid Infusing)2100 (Due) Continuous Medication Order 09/05/2021 09/06/2021 09/07/2021 0.9 % sodium chloride infusion IntraVENous, at 100 mL/hr, CONTINUOUS, Starting on Thu09/04/21 at 0515 1139 (New Bag - Provider: Aleksandra Pickens RN) PRN Medication Order 09/05/2021 09/06/2021 09/07/2021 0.9 % sodium chloride infusion 25 mL, IntraVENous, at 100 mL/hr, PRN, If patient receiving piggyback infusions without ordered maintenance IV fluids or with frequent/long duration piggyback infusions, Starting on Thu09/04/21 at 0445, Administer at the same rate as the piggyback being infused. HYDROmorphone (DILAUDID) injection 0.5 mg (CANCELED) 0.5 mg, SubCUTAneous, EVERY 4 HOURS PRN, Pain Severe (7-10), SECOND LINE FOR PAIN, Starting on Lena 09/05/21 at 1202, If oral and IV narcotics ordered, use oral first and only use IV if oral is ineffective or cannot take oral. Do Not give oral and IV within 1 hour of each other unless specifically ordered. SECOND LINE FOR PAIN 1400 (Given - Provider: Eduardo Remy RN) HYDROmorphone (DILAUDID) injection 0.5 mg 0.5 mg, SubCUTAneous, EVERY 4 HOURS PRN, Pain Severe (7-10), Starting on Thu09/06/21 at 1335, If oral and IV narcotics ordered, use oral first and only use IV if oral is ineffective or cannot take oral. Do Not give oral and IV within 1 hour of each other unless specifically ordered. 1405 (Given - Provider: Aleksandra Pickens RN)2014 (Given - Provider: Reyna Childs RN) 1310 (Given - Provider: Aleksandra Pickens RN) ketorolac (TORADOL) injection 30 mg (CANCELED) 30 mg, IntraVENous, EVERY 6 HOURS PRN, Pain Moderate (4-6), Starting on Lena 09/05/21 at 0803, For 5 days, FIRST LINE FOR PAIN Do not administer for more than 5 days. 0811 (Given - Provider: Shereen Cullen, EMY) ketorolac (TORADOL) injection 30 mg (CANCELED) 30 mg, IntraVENous, EVERY 6 HOURS PRN, Pain Moderate (4-6), Pain Severe (7-10), FIRST LINE FOR PAIN, Starting on Lena 09/05/21 at 1146, For 116 hours, FIRST LINE FOR PAIN Do not administer for more than 5 days. 1849 (Given - Provider: Michelle eBttencourt, EMY) 0846 (Given - Provider: Aleksandra Pickens RN) labetalol (NORMODYNE;TRANDATE) injection 10 mg 10 mg, IntraVENous, EVERY 4 HOURS PRN, High Blood Pressure, For SBP > 160, Starting on Thu09/04/21 at 0642 morphine injection 2 mg (CANCELED) 2 mg, SubCUTAneous, EVERY 4 HOURS PRN, Pain Moderate (4-6), Starting on Thu09/04/21 at 1614, If oral and IV narcotics ordered, use oral first and only use IV if oral is ineffective or cannot take oral. Do Not give oral and IV within 1 hour of each other unless specifically ordered. 0547 (Given - Provider: French Naqvi RN) ondansetron (ZOFRAN) injection 4 mg (CANCELED) 4 mg, IntraVENous, EVERY 6 HOURS PRN, Nausea, Vomiting, Starting on Thu09/04/21 at 0445, Administer if oral route cannot be used. 0547 (Given - Provider: French Naqvi RN) polyethylene glycol (GLYCOLAX) packet 17 g 17 g, Oral, DAILY PRN, Constipation, Starting on Thu09/04/21 at 0445, First line therapy for constipation potassium chloride (KLOR-CON M) extended release tablet 40 mEq 40 mEq, Oral, DAILY PRN, Administer daily for serum potassium <3.5, Starting on Thu09/06/21 at 0436, Do not crush, chew, or suck on tablet. Tablet may also be broken in half and each half swallowed separately. 0543 (Given - Provider: Efraín Moore RN) 1035 (Held by provider - Provider: Chance Martinez MD - Reason: Other - Comment: One time packet ordered)1325 (Unheld by provider - Provider: Chance Martinez MD)1334 (Given - Provider: Aleksandra Pickens RN) prochlorperazine (COMPAZINE) injection 5 mg(Linked Group 1) 5 mg, IntraVENous, EVERY 6 HOURS PRN, Nausea, If unable to tolerate PO, Starting on Lena 09/05/21 at 1143 1651 (Given - Provider: Michelle Bettencourt RN) 0846 (Given - Provider: Aleksandra Pickens RN) 1309 (Given - Provider: Aleksandra Pickens RN) prochlorperazine (COMPAZINE) tablet 5 mg(Linked Group 1) 5 mg, Oral, EVERY 6 HOURS PRN, Nausea, Starting on Lena 09/05/21 at 1143 1651 (See Alternative - Provider: Michelle Bettencourt RN) 0846 (See Alternative - Provider: Aleksandra Pickens RN) 1309 (See Alternative - Provider: Aleksandra Pickens RN) sodium chloride flush 0.9 % injection 5-40 mL 5-40 mL, IntraVENous, PRN, Line Care, After every IV line use, Starting on Thu09/04/21 at 0445, For Line Patency: Peripheral IV = 5 mL; Midline or Central Line = 10 mL/lumen. If following IV push medication, administer flush at same rate as the IV push. Flush volume is determined by type of infusion therapy being given. For non-viscous solutions use: Peripheral IV = 5 mL Midline or Central Line = 10 mL/lumen For viscous solutions (i.e. blood components, parenteral nutrition, contrast media, or after obtaining blood sample) use: Peripheral IV = 10 mL Midline or Central Line = 20 mL/lumen Linked Groups Order Group 1: prochlorperazine (COMPAZINE) tablet 5 mgJump to med 5 mg, Oral, EVERY 6 HOURS PRN, Nausea, Starting on Lena 09/05/21 at 1143 Or prochlorperazine (COMPAZINE) injection 5 mgJump to med 5 mg, IntraVENous, EVERY 6 HOURS PRN, Nausea, If unable to tolerate PO, Starting on Lena 09/05/21 at 1143 Scheduled Medication Order 09/09/2021 09/10/2021 09/11/2021 acetaminophen (TYLENOL) tablet 1,000 mg 1,000 mg, Oral, EVERY 6 HOURS, First dose on Thu09/09/21 at 1815, If acetaminophen and ibuprofen are both ordered PRN for mild pain, may administer together. 1941 (Given - Provider: Alen Dailey RN) 0023 (Given - Provider: Alen Dailey RN)0541 (Not Given - Provider: Alen Dailey RN - Reason: Patient/family refused - Comment: patient refused due to nausea, patient was medicated for nausea)1215 (Not Given - Provider: Pricila Turner RN - Reason: Patient/family refused)1916 (Given - Provider: Pricila Turner RN)2343 (Given - Provider: Alen Dailey RN) 0523 (Given - Provider: Alen Dailey RN)1146 (Given - Provider: Yamilet Woods RN)1815 (Due) enoxaparin (LOVENOX) injection 40 mg 40 mg, SubCUTAneous, DAILY, First dose on Thu09/10/21 at 0900 0900 (Not Given - Provider: Pricila Turner RN - Reason: Patient/family refused) 0845 (Given - Provider: Yamilet Woods RN) famotidine (PEPCID) injection 20 mg (CANCELED) 20 mg, IntraVENous, ONCE, On Thu09/09/21 at 1200, For 1 dose, Pre-op (day of surgery) 1142 (Given - Provider: Michelle Brooks RN - Comment: given 07/10 at 11:42, did not scan)1200 (Due) HYDROmorphone (DILAUDID) injection 0.5 mg (COMPLETED) 0.5 mg, IntraVENous, ONCE, On Thu09/09/21 at 1200, For 1 dose, Pre-op (day of surgery) 1140 (Given - Provider: Michelle Brooks RN) OLANZapine (ZYPREXA) tablet 5 mg 5 mg, Oral, NIGHTLY, First dose on Thu09/09/21 at 2100 2235 (Given - Provider: Alen Dailey RN) 2027 (Given - Provider: Alen Dailey RN) 2099 (Due) pantoprazole (PROTONIX) tablet 40 mg 40 mg, Oral, DAILY BEFORE BREAKFAST, First dose on Thu09/10/21 at 0700, Do not crush or break. 0700 (Not Given - Provider: Pricila Turner RN - Reason: Patient/family refused) 0523 (Given - Provider: Alen Dailey RN) polyethylene glycol (GLYCOLAX) packet 17 g 17 g, Oral, 2 TIMES DAILY, First dose on Thu09/09/21 at 2100 2237 (Given - Provider: Alen Dailey RN - Comment: pt sleeping) 09 (Not Given - Provider: Pricila Turner RN - Reason: Patient/family refused)2027 (Given - Provider: Alen Dailey RN) 0845 (Given - Provider: Yamilet Woods RN)2099 (Due) sodium chloride flush 0.9 % injection 5-40 mL 5-40 mL, IntraVENous, EVERY 12 HOURS SCHEDULED (2 times per day), First dose on Thu09/09/21 at 2100, For Line Patency: Peripheral IV = 5 mL; Midline or Central Line = 10 mL/lumen. If following IV push medication, administer flush at same rate as the IV push. Flush volume is determined by type of infusion therapy being given. For non-viscous solutions use: Peripheral IV = 5 mL Midline or Central Line = 10 mL/lumen For viscous solutions (i.e. blood components, parenteral nutrition, contrast media, or after obtaining blood sample) use: Peripheral IV = 10 mL Midline or Central Line = 20 mL/lumen 221 (Not Given - Provider: Alen Dailey RN - Reason: IV Fluid Infusing) 899 (Not Given - Provider: Pricila Turner RN - Reason: IV Fluid Infusing)2027 (Not Given - Provider: Alen Dailey RN - Reason: IV Fluid Infusing) 0847 (Given - Provider: Yamilet Woods RN)2099 (Due) Continuous Medication Order 09/09/2021 09/10/2021 09/11/2021 0.9 % sodium chloride infusion (CANCELED) IntraVENous, at 50 mL/hr, CONTINUOUS, Starting on Thu09/09/21 at 1130, Upon admission to sameday - please start iv if patient does not have iv access., Pre-op (day of surgery) 1136 (New Bag - Provider: Michelle Brooks RN) 0.9 % sodium chloride infusion IntraVENous, at 100 mL/hr, CONTINUOUS, Starting on Thu09/09/21 at 1815 1940 (New Bag - Provider: Alen Dailey, RN) 0854 (New Bag - Provider: Pricila Turner, EMY)2343 (New Bag - Provider: Alen Dailey, RN) 1150 (New Bag - Provider: Yamilet Woods RN) PRN Medication Order 09/09/2021 09/10/2021 09/11/2021 0.9 % sodium chloride infusion 25 mL, IntraVENous, at 100 mL/hr, PRN, If patient receiving piggyback infusions without ordered maintenance IV fluids or with frequent/long duration piggyback infusions, Starting on Thu09/09/21 at 1746, Administer at the same rate as the piggyback being infused. ALPRAZolam (NIRAVAM) dissolvable tablet 0.25 mg (CANCELED) 0.25 mg, Oral, PRN, Anxiety, Starting on Thu09/09/21 at 1105, Pre-op (day of surgery) 1147 (Given - Provider: Michelle Brooks RN) diphenhydrAMINE (BENADRYL) tablet 25 mg 25 mg, Oral, EVERY 6 HOURS PRN, Other, Nausea second line, Starting on Thu09/10/21 at 1446 1454 (Given - Provider: Pricila Turner, EMY) HYDROmorphone (DILAUDID) injection 0.5 mg (CANCELED) 0.5 mg, IntraVENous, EVERY 5 MIN PRN, Pain Severe (7-10), Starting on Thu09/09/21 at 1142, For 4 doses, Phase I - Secondary therapy to be used after all initial severe pain medication doses have been administered., PACU only 1632 (Given - Provider: Pricila Turner RN)1648 (Given - Provider: Pricila Turner RN) HYDROmorphone (DILAUDID) injection 0.5 mg (CANCELED) 0.5 mg, IntraVENous, EVERY 3 HOURS PRN, breakthrough pain, Starting on Thu09/10/21 at 0648, If oral and IV narcotics ordered, use oral first and only use IV if oral is ineffective or cannot take oral. Do Not give oral and IV within 1 hour of each other unless specifically ordered. 0715 (Given - Provider: Kate Betancourt RN)1259 (Given - Provider: Mckayla Casarez, EMY) HYDROmorphone (DILAUDID) injection 0.5 mg 0.5 mg, IntraVENous, EVERY 3 HOURS PRN, breakthrough pain, only after tylenol and oxycodone have been given, Starting on Thu09/10/21 at 1318, If oral and IV narcotics ordered, use oral first and only use IV if oral is ineffective or cannot take oral. Do Not give oral and IV within 1 hour of each other unless specifically ordered. 1534 (Given - Provider: Pricila Turner RN)2028 (Given - Provider: Alen Dailey RN) 0523 (Given - Provider: Alen Dailey RN)1038 (Given - Provider: Yamilet Woods RN - Comment: for BENI drain removal) morphine injection 2 mg (CANCELED) 2 mg, IntraVENous, EVERY 2 HOURS PRN, breakthrough pain, Starting on Thu09/09/21 at 1746, If oral and IV narcotics ordered, use oral first and only use IV if oral is ineffective or cannot take oral. Do Not give oral and IV within 1 hour of each other unless specifically ordered. 0449 (Given - Provider: Alen Dailey RN) ondansetron (ZOFRAN) injection 4 mg(Linked Group 1) 4 mg, IntraVENous, EVERY 6 HOURS PRN, Nausea, Vomiting, Starting on Thu09/09/21 at 1746, Administer if oral route cannot be used. 0500 (Given - Provider: Alen Dailey RN)1304 (Given - Provider: Mckayla Casarez, EMY) ondansetron (ZOFRAN-ODT) disintegrating tablet 4 mg(Linked Group 1) 4 mg, Oral, EVERY 8 HOURS PRN, Nausea, Vomiting, Starting on Thu09/09/21 at 1746 0500 (See Alternative - Provider: Alen Dailey RN)1304 (See Alternative - Provider: Mckayla Casarez RN) oxyCODONE (ROXICODONE) immediate release tablet 10 mg(Linked Group 2) 10 mg, Oral, EVERY 4 HOURS PRN, Pain Severe (7-10), Starting on Thu09/09/21 at 1746 1940 (Given - Provider: Alen Dailey RN) 0023 (See Alternative - Provider: Alne Dailey RN)0437 (See Alternative - Provider: Alen Dailey RN)1433 (Given - Provider: Pricila Turner RN)1916 (Given - Provider: Pricila Turner RN)2343 (Given - Provider: Alen Dailey RN) 0845 (Given - Provider: Yamilet Woods RN)1420 (Given - Provider: Yamilet Woods RN) oxyCODONE (ROXICODONE) immediate release tablet 5 mg(Linked Group 2) 5 mg, Oral, EVERY 4 HOURS PRN, Pain Moderate (4-6), Starting on Thu09/09/21 at 1746 1940 (See Alternative - Provider: Alen Dailey RN) 0023 (Given - Provider: Alen Dailey RN)0437 (Given - Provider: Alen Dailey RN)1433 (See Alternative - Provider: Pricila Turner RN)1916 (See Alternative - Provider: Pricila Turner RN)2343 (See Alternative - Provider: Alen Dailey RN) 0845 (See Alternative - Provider: Yamilet Woods RN)1420 (See Alternative - Provider: Yamilet Woods, EMY) prochlorperazine (COMPAZINE) injection 10 mg 10 mg, IntraVENous, EVERY 6 HOURS PRN, Nausea, Starting on Thu09/10/21 at 1532 1916 (Given - Provider: Pricila Turner RN) sodium chloride flush 0.9 % injection 5-40 mL 5-40 mL, IntraVENous, PRN, Line Care, After every IV line use, Starting on Thu09/09/21 at 1746, For Line Patency: Peripheral IV = 5 mL; Midline or Central Line = 10 mL/lumen. If following IV push medication, administer flush at same rate as the IV push. Flush volume is determined by type of infusion therapy being given. For non-viscous solutions use: Peripheral IV = 5 mL Midline or Central Line = 10 mL/lumen For viscous solutions (i.e. blood components, parenteral nutrition, contrast media, or after obtaining blood sample) use: Peripheral IV = 10 mL Midline or Central Line = 20 mL/lumen Linked Groups Order Group 1: ondansetron (ZOFRAN-ODT) disintegrating tablet 4 mgJump to med 4 mg, Oral, EVERY 8 HOURS PRN, Nausea, Vomiting, Starting on Thu09/09/21 at 1746 Or ondansetron (ZOFRAN) injection 4 mgJump to med 4 mg, IntraVENous, EVERY 6 HOURS PRN, Nausea, Vomiting, Starting on Thu09/09/21 at 1746
Administer if oral route cannot be used.
Group 2: oxyCODONE (ROXICODONE) immediate release tablet 5 mgJump to med 5 mg, Oral, EVERY 4 HOURS PRN, Pain Moderate (4-6), Starting on Thu09/09/21 at 1746 Or oxyCODONE (ROXICODONE) immediate release tablet 10 mgJump to med 10 mg, Oral, EVERY 4 HOURS PRN, Pain Severe (7-10), Starting on Thu09/09/21 at 1746 Scheduled Medication Order 09/17/2021 09/18/2021 09/19/2021 bisacodyl (DULCOLAX) suppository 10 mg 10 mg, Rectal, DAILY, First dose (after last modification) on Thu09/18/21 at 1030 1229 (Not Given - Provider: Chantel Beyer RN - Reason: Patient/family refused - Comment: decided to take the healthylax) 0824 (Not Given - Provider: Chantel Beyer RN - Reason: Patient/family refused) docusate sodium (COLACE) capsule 100 mg 100 mg, Oral, 2 TIMES DAILY, First dose on Thu09/14/21 at 1215, Do not crush or break. 0847 (Not Given - Provider: Nely Avitia RN - Reason: Patient/family refused)1956 (Given - Provider: Nga Castro RN) 0900 (Given - Provider: Chantel Beyer RN)2002 (Given - Provider: Bernarda Mauricio RN) 0824 (Given - Provider: Chantel Beyer RN)2099 (Due) heparin (porcine) injection 5,000 Units 5,000 Units, SubCUTAneous, EVERY 8 HOURS SCHEDULED (3 times per day), First dose on Thu09/16/21 at 0730 0455 (Given - Provider: Nga Castro RN)1450 (Not Given - Provider: Nely Avitia RN - Reason: Patient/family refused)1957 (Given - Provider: Nga Castro RN) 0512 (Given - Provider: Nga Castro RN)1448 (Given - Provider: Chantel Beyer RN)2003 (Given - Provider: Bernarda Mauricio RN) 0634 (Not Given - Provider: Bernarda Mauricio RN - Reason: Patient/family refused)1400 (Due)2200 (Due) lidocaine 4 % external patch 2 patch 2 patch, TransDERmal, Administer over 12 Hours, DAILY, First dose on Thu09/16/21 at 1415, Apply patch to left flank. Patch may remain in place for up to 12 hours in any 24 hour period. 0455 (Patch Removed - Provider: Nga Castro RN)0843 (Patch Applied - Provider: Nely Avitia RN)1957 (Patch Removed - Provider: Nga Castro RN) 0900 (Patch Applied - Provider: Chantel Beyer RN)2008 (Patch Removed - Provider: Bernarda Mauricio RN) 0823 (Patch Applied - Provider: Chantel Beyer RN)2022 (Due: Patch Removed - Provider: Chantel Beyer RN) magnesium hydroxide (MILK OF MAGNESIA) 400 MG/5ML suspension 30 mL 30 mL, Oral, DAILY, First dose (after last modification) on Thu09/18/21 at 1030 1229 (Given - Provider: Chantel Beyer RN) 0823 (Given - Provider: Chantel Beyer RN) OLANZapine (ZYPREXA) tablet 5 mg 5 mg, Oral, NIGHTLY, First dose on Thu09/14/21 at 2100 1957 (Given - Provider: Nga Castro RN) 2001 (Given - Provider: Bernarda Mauricio RN) 2100 (Due) ondansetron (ZOFRAN) tablet 8 mg 8 mg, Oral, EVERY 8 HOURS, First dose on 09/14/21 at 1245, Use if can take PO , Before trying IV 0456 (Given - Provider: Nga Castro RN)1236 (Given - Provider: Nely Avitia RN)1956 (Given - Provider: Nga Castro RN) 0512 (Given - Provider: Nga Castro RN)1230 (Given - Provider: Chantel Beyer RN)1999 (Given - Provider: Bernarda Mauricio, EMY) 0632 (Given - Provider: Bernarda Mauricio, RN)1245 (Due)2044 (Due) pantoprazole (PROTONIX) tablet 40 mg 40 mg, Oral, DAILY BEFORE BREAKFAST, First dose on 09/15/21 at 0700, Do not crush or break. 0455 (Canceled Entry - Provider: Nga Castro RN)0456 (Given - Provider: Nga Castro RN) 0512 (Given - Provider: Nga Castro RN) 0632 (Given - Provider: Bernarda Mauricio RN) polyethylene glycol (GLYCOLAX) packet 17 g 17 g, Oral, 2 TIMES DAILY, First dose on 09/14/21 at 1215 0847 (Not Given - Provider: Nely Avitia RN - Reason: Patient/family refused)1951 (Not Given - Provider: Nga Castro RN - Reason: Patient/family refused) 09 (Not Given - Provider: Chantel Beyer RN - Reason: Patient/family refused)1235 (Given - Provider: Chantel Beyer RN)2002 (Given - Provider: Bernarda Mauricio RN) 0823 (Given - Provider: Chantel Beyer RN)2100 (Due) potassium chloride 10 mEq/100 mL IVPB (Peripheral Line) 10 mEq, IntraVENous, at 100 mL/hr, EVERY HOUR, First dose on Thu09/16/21 at 0730, For 2 doses sodium chloride flush 0.9 % injection 5-40 mL 5-40 mL, IntraVENous, EVERY 12 HOURS SCHEDULED (2 times per day), First dose on 09/14/21 at 2100, For Line Patency: Peripheral IV = 5 mL; Midline or Central Line = 10 mL/lumen. If following IV push medication, administer flush at same rate as the IV push. Flush volume is determined by type of infusion therapy being given. For non-viscous solutions use: Peripheral IV = 5 mL Midline or Central Line = 10 mL/lumen For viscous solutions (i.e. blood components, parenteral nutrition, contrast media, or after obtaining blood sample) use: Peripheral IV = 10 mL Midline or Central Line = 20 mL/lumen 0847 (Not Given - Provider: Nely Avitia RN - Reason: IV Fluid Infusing)1952 (Not Given - Provider: Nga Castro RN - Reason: IV Fluid Infusing) 0900 (Given - Provider: Chantel Beyer RN)2009 (Given - Provider: Bernarda Mauricio RN) 08 (Given - Provider: Chantel Beyer RN)2100 (Due) sulfamethoxazole-trime thoprim (BACTRIM DS;SEPTRA DS) 800-160 MG per tablet 1 tablet 1 tablet, Oral, EVERY 12 HOURS SCHEDULED (2 times per day), First dose on 09/14/21 at 2100 0842 (Given - Provider: Nely Avitia RN)1956 (Given - Provider: Nga Castro RN) 09 (Given - Provider: Chantel Beyer RN)2011 (Given - Provider: Bernarda Mauricio RN) 0822 (Given - Provider: Chantel Beyer RN)2100 (Due) tamsulosin (FLOMAX) capsule 0.4 mg 0.4 mg, Oral, DAILY, First dose on 09/14/21 at 1230, Do not crush or break. 0842 (Given - Provider: Nely Avitia RN) 0900 (Given - Provider: Chantel Beyer RN) 0824 (Given - Provider: Chantel Beyer RN) trospium (SANCTURA) tablet 20 mg 20 mg, Oral, 2 TIMES DAILY BEFORE MEALS, First dose on 09/14/21 at 1600, Administer with water on an empty stomach at least 1 hour prior to meals. 0456 (Given - Provider: Nga Castro RN)1649 (Given - Provider: Nely Avitia RN) 0512 (Given - Provider: Nga Castro RN)1500 (Given - Provider: Chantel Beyer RN) 0632 (Given - Provider: Bernarda Mauricio RN)1600 (Due) Continuous Medication Order 09/17/2021 09/18/2021 09/19/2021 0.9 % sodium chloride infusion IntraVENous, at 100 mL/hr, CONTINUOUS, Starting on 09/14/21 at 1215 0512 (New Bag - Provider: Nga Castro RN)1448 (New Bag - Provider: Chantel Beyer RN) 0137 (New Bag - Provider: Bernarda Mauricio, EMY)1043 (Stopped - Provider: Chantel Beyer RN) PRN Medication Order 09/17/2021 09/18/2021 09/19/2021 0.9 % sodium chloride infusion 25 mL, IntraVENous, at 100 mL/hr, PRN, If patient receiving piggyback infusions without ordered maintenance IV fluids or with frequent/long duration piggyback infusions, Starting on 09/14/21 at 1141, Administer at the same rate as the piggyback being infused. acetaminophen (TYLENOL) tablet 650 mg 650 mg, Oral, EVERY 4 HOURS PRN, Pain Mild (1-3), Pain Mild (1-3) or Fever greater than 100.5 F (38 C), Starting on 09/14/21 at 1141, If acetaminophen and ibuprofen are both ordered PRN for mild pain, may administer together. 09 (Given - Provider: Chantel Beyer RN)2001 (Given - Provider: Bernarda Mauricio, EMY) melatonin tablet 5 mg 5 mg, Oral, NIGHTLY PRN, Sleep, Starting on 09/14/21 at 2100 1957 (Given - Provider: Nga Castro RN) 2003 (Given - Provider: Bernarda Mauricio, EMY) oxyCODONE (ROXICODONE INTENSOL) 100 MG/5ML concentrated solution 10 mg 10 mg, Oral, EVERY 6 HOURS PRN, Pain Severe (7-10), Starting on 09/16/21 at 1357 1240 (Given - Provider: Nely Avitia, EMY)1956 (Given - Provider: Nga Castro, RN) 0512 (Given - Provider: Nga Castro, RN)1229 (Given - Provider: Chantel Beyer RN)1958 (Given - Provider: Bernarda Mauricio, EMY) 0822 (Given - Provider: Chantel Beyer RN) oxyCODONE (ROXICODONE INTENSOL) 100 MG/5ML concentrated solution 5 mg 5 mg, Oral, EVERY 6 HOURS PRN, Pain Moderate (4-6), Starting on 09/16/21 at 1357 prochlorperazine (COMPAZINE) injection 10 mg 10 mg, IntraVENous, EVERY 6 HOURS PRN, Nausea, Vomiting, Starting on 09/14/21 at 1225 1649 (Given - Provider: Nely Avitia RN)2204 (Given - Provider: Nga Castro RN - Comment: okay to give early per Dr. Savage) 1458 (Given - Provider: Chantel Beyer RN) sennosides-docusate sodium (SENOKOT-S) 8.6-50 MG tablet 2 tablet 2 tablet, Oral, DAILY PRN, Constipation, Starting on Lena 09/19/21 at 0729 sodium chloride flush 0.9 % injection 5-40 mL 5-40 mL, IntraVENous, PRN, Line Care, After every IV line use, Starting on 09/14/21 at 1141, For Line Patency: Peripheral IV = 5 mL; Midline or Central Line = 10 mL/lumen. If following IV push medication, administer flush at same rate as the IV push. Flush volume is determined by type of infusion therapy being given. For non-viscous solutions use: Peripheral IV = 5 mL Midline or Central Line = 10 mL/lumen For viscous solutions (i.e. blood components, parenteral nutrition, contrast media, or after obtaining blood sample) use: Peripheral IV = 10 mL Midline or Central Line = 20 mL/lumen Scheduled Medication Order 09/14/2024 09/15/2024 09/16/2024 HYDROmorphone (Dilaudid) injection 1 mg (COMPLETED) 1 mg, IntraVENous, Once, On Lena 09/15/24 at 1055, For 1 dose 1209 (Given - Provider: Rebekah Guan RN) HYDROmorphone (Dilaudid) injection 1 mg (COMPLETED) 1 mg, IntraVENous, Once, On Lena 09/15/24 at 1545, For 1 dose, If oral and IV narcotics ordered, use oral first and only use IV if oral is ineffective or cannot take oral. Do Not give oral and IV within 1 hour of each other unless specifically ordered. 1603 (Given - Provider: Nely Denton RN) metoclopramide (Reglan) injection 10 mg (COMPLETED) 10 mg, IntraVENous, Once, On Lena 09/15/24 at 1545, For 1 dose 1603 (Given - Provider: Nely Denton RN) metoclopramide (Reglan) injection 10 mg 10 mg, IntraVENous, Every 6 hours, First dose on Thu09/16/24 at 0830 0948 (Given - Provid er: Anali Poole RN)1347 (Given - Provider: Bindu Villalta RN) ondansetron (Zofran) injection 4 mg (COMPLETED) 4 mg, IntraVENous, Once, On Lena 09/15/24 at 1055, For 1 dose 1209 (Given - Provider: Rebekah Guan RN) pantoprazole (ProtoNix) 40 mg in sodium chloride (PF) 0.9 % 10 mL injection 40 mg, IntraVENous, Administer over 2 Minutes, 2 times daily, First dose on Thu09/15/24 at 2100, Reconstitute with 10 ml NS. Vial expires 2 hrs after reconstitution. 2323 (Given - Provider: Chiquita Schultz RN - Comment: loss of IV access) 0951 (Given - Provider: Anali Poole RN) potassium chloride 40 mEq in NS 500 mL IVPB (premix) (COMPLETED) 40 mEq, IntraVENous, at 250 mL/hr, Administer over 2 Hours, Once, On Thu09/15/24 at 1300, For 1 dose, Max infusion rate = 10 mEq/hr 1341 (New Bag - Provider: Nely Denton RN)1741 (Stopped - Provider: Anali Poole RN) potassium chloride 40 mEq in NS 500 mL IVPB (premix) (COMPLETED) 40 mEq, IntraVENous, at 125 mL/hr, Administer over 4 Hours, Once, On Thu09/16/24 at 0830, For 1 dose, Max infusion rate = 10 mEq/hr 1015 (New Bag - Prov ider: Anali Poole RN)1415 (Stopped - Provider: Anali Poole RN) sodium chloride 0.9 % bolus 1,000 mL (COMPLETED) 1,000 mL, IntraVENous, at 1,000 mL/hr, Administer over 1 Hours, Once, On Lena 09/15/24 at 1055, For 1 dose 1210 (New Bag - Provider: Rebekah Guan RN)1310 (Stopped - Provider: Nely Denton RN) sodium chloride 0.9% (NS) flush 10 mL 10 mL, IntraVENous, Every 12 hours scheduled (2 times per day), First dose on Lena 09/15/24 at 2100 2328 (Given - Provider: Chiquita Schultz RN) 0900 (Not Given - Provider: Anali Poole RN - Reason: IV Fluids Infusing) sucralfate (Carafate) tablet 1 g 1 g, Oral, 4 times daily before meals & nightly, First dose on Lena 09/15/24 at 1700, Give on an empty stomach (1 hr before meals, at bedtime). Separate all other meds by at least 2 hours (exception: antacids may be given only 30 minutes apart). 1822 (Given - Provider: Anali Poole RN)2100 (Not Given - Provider: Chiquita Schultz RN - Reason: Patient/family refused) 0949 (Given - Provider: Anali Poole RN)1249 (Given - Provider: Anali Poole RN)1700 (Canceled Entry - Provider: Automatic Discharge Provider - Comment: Automatically canceled at discontinue of medication order) Continuous Medication Order 09/14/2024 09/15/2024 09/16/2024 sodium chloride 0.9 % infusion 125 mL/hr, IntraVENous, Continuous, Starting on Lena 09/15/24 at 1620 1823 (New Bag - Provider: Anali Poole RN)2000 (Stopped - Provider: Chiquita Schultz RN - Comment: Loss of IV access)2317 (Restarted - Provider: Chiquita Schultz RN)2318 (New Bag - Provider: Chiquita Schultz RN) 0342 (Rate/Dose Verify - Provider: Chiquita Schultz RN)0628 (Rate/Dose Verify - Provider: Chiquita Schultz RN)0838 (Rate/Dose Verify - Provider: Anali Poole RN)1209 (Rate/Dose Verify - Provider: Anali Poole RN)1731 (Rate/Dose Verify - Provider: Anali Poole RN) PRN Medication Order 09/14/2024 09/15/2024 09/16/2024 acetaminophen (Tylenol) suppository 650 mg(Linked Group 1) 650 mg, Rectal, Every 6 hours PRN, mild pain (1-3), fever, For temp greater than 100.4 F (38 C), Starting on Lena 09/15/24 at 1614, Administer if oral route cannot be used. Maximum dose of acetaminophen is 4000 mg from all sources in 24 hours. acetaminophen (Tylenol) tablet 650 mg(Linked Group 1) 650 mg, Oral, Every 6 hours PRN, mild pain (1-3), fever, For temp greater than 100.4 F (38 C), Starting on Thu09/15/24 at 1614, Maximum dose of acetaminophen is 4000 mg from all sources in 24 hours. capsaicin (Zostrix) 0.025 % cream Topical, 2 times daily PRN, mild pain (1-3), Apply to abdomen, Starting on Thu09/16/24 at 1327 iopamidol (Isovue-370) 76 % injection 75 mL (COMPLETED) 75 mL, IntraVENous, IMG once PRN, contrast, Starting on Thu09/15/24 at 1254, For 1 dose 1254 (Given - Provider: Louie Lindsay, RT (R)(CT)) ketorolac (Toradol) injection 15 mg 15 mg, IntraVENous, Every 6 hours PRN, moderate pain (4-6), Starting on Thu09/15/24 at 1619, For 5 days 1958 (Given - Provider: Chiquita Schultz RN) 0650 (Given - Provider: Chiquita Schultz RN)1451 (Given - Provider: Anali Poole RN) morphine injection 4 mg (CANCELED) 4 mg, IntraVENous, Every 4 hours PRN, severe pain (7-10), Starting on Thu09/15/24 at 1620, If oral and IV narcotics ordered, use oral first and only use IV if oral is ineffective or cannot take oral. Do Not give oral and IV within 1 hour of each other unless specifically ordered. 183 (Given - Provider: Anali Poole RN)2319 (Given - Provider: Chiquita Schultz RN) 0346 (Given - Provider: Chiquita Schultz RN)1013 (Given - Provider: Anali Poole, EMY) naloxone (Narcan) injection 0.4 mg 0.4 mg, IntraVENous, Every 5 min PRN, opioid reversal, respiratory depression, Starting on Thu09/16/24 at 0824, +++ For RR <10, pinpoint pupils, over sedation for opioid reversal - MUST notify traffic control specialist provider immediately after first dose, may give IM or SQ if no IV access +++ ondansetron (Zofran) injection 4 mg(Linked Group 2) 4 mg, IntraVENous, Every 6 hours PRN, nausea, vomiting, Starting on Lena 09/15/24 at 1614, 1st Line. Give IV if patient is unable to take orally. If inadequate response within 60 minutes, proceed to next-line agent or contact provider if no further options ordered. 2335 (Given - Provider: Chiquita Schultz RN) ondansetron ODT (Zofran-ODT) disintegrating tablet 4 mg(Linked Group 2) 4 mg, Oral, Every 8 hours PRN, nausea, vomiting, Starting on Thu09/15/24 at 1614, 1st Line. If inadequate response within 60 minutes, proceed to next-line agent or contact provider if no further options ordered. Patient should allow tablet to dissolve on tongue. Do not remove from blister pack until just before administering. 2335 (See Alternative - Provider: Chiquita Schultz RN) sodium chloride 0.9 % infusion 5-250 mL/hr, IntraVENous, PRN, if patient receiving piggyback infusions and maintenance fluids are not ordered OR KVO fluids to protect IV site / prevent frequent line interruptions/ long duration, Starting on Thu09/15/24 at 1614, For piggyback infusion, administer at same rate as piggyback for a total of 25 mL. Enter 25 mL into dose field and piggyback rate into rate field of order. If piggyback is infusing at a rate less than 100 mL/hr, enter 25 mL into dose field and 100 mL/hr into rate field of order. For KVO fluids, enter rate of 20 mL/hr or less into rate field of order. sodium chloride 0.9% (NS) flush 10 mL 10 mL, IntraVENous, PRN, line care, Starting on Thu09/15/24 at 1614, After every IV line use Linked Groups Order Group 1: acetaminophen (Tylenol) tablet 650 mgJump to med 650 mg, Oral, Every 6 hours PRN, mild pain (1-3), fever, For temp greater than 100.4 F (38 C), Starting on Lena 09/15/24 at 1614, Maximum dose of acetaminophen is 4000 mg from all sources in 24 hours. Or acetaminophen (Tylenol) suppository 650 mgJump to med 650 mg, Rectal, Every 6 hours PRN, mild pain (1-3), fever, For temp greater than 100.4 F (38 C), Starting on Lena 09/15/24 at 1614, Administer if oral route cannot be used. Maximum dose of acetaminophen is 4000 mg from all sources in 24 hours. Group 2: ondansetron ODT (Zofran-ODT) disintegrating tablet 4 mgJump to med 4 mg, Oral, Every 8 hours PRN, nausea, vomiting, Starting on Lnea 09/15/24 at 1614, 1st Line. If inadequate response within 60 minutes, proceed to next-line agent or contact provider if no further options ordered. Patient should allow tablet to dissolve on tongue. Do not remove from blister pack until just before administering. Or ondansetron (Zofran) injection 4 mgJump to med 4 mg, IntraVENous, Every 6 hours PRN, nausea, vomiting, Starting on Lena 09/15/24 at 1614, 1st Line. Give IV if patient is unable to take orally. If inadequate response within 60 minutes, proceed to next-line agent or contact provider if no further options ordered. Scheduled Medication Order 09/26/2024 09/27/2024 09/28/2024 acetaminophen (Ofirmev) IVPB 1,000 mg 1,000 mg, IntraVENous, at 400 mL/hr, Administer over 15 Minutes, Every 8 hours, First dose on Lena 09/22/24 at 1400 0643 (New Bag - Provider: Mary Pierre RN)0658 (Stopped - Provider: Bri Ayoub RN)1400 (Not Given - Provider: Bri Ayoub RN - Reason: Patient/family refused) 0152 (New Bag - Provider: Wallace Connor RN)0207 (Stopped - Provider: Wallace Connor RN)0900 (Not Given - Provider: Bri Ayoub RN - Reason: Patient/family refused)1644 (New Bag - Provider: Bri Ayoub RN)1659 (Stopped - Provider: Bri Ayoub RN) 0100 (Not Given - Provider: Wallace Connor RN - Reason: Patient/family refused)0822 (Not Given - Provider: Miles Michelle RN - Reason: Patient/family refused) cyclobenzaprine (Flexeril) tablet 5 mg 5 mg, Oral, 3 times daily, First dose on Thu09/23/24 at 1000 1218 (Given - Provider: Bri Ayoub RN)1400 (Not Given - Provider: Bri Ayoub RN - Reason: Contraindicated - Comment: Patient took morning meds late because she stated she could not take them without antiemetic.)2144 (Given - Provider: Wallace Connor RN) 1028 (Given - Provider: Bri Ayoub RN)1644 (Given - Provider: Bri Ayoub RN)2254 (Given - Provider: Wallace Connor RN - Comment: PER PATIENT REQUEST) 0822 (Given - Provider: Miles Michelle RN)1400 (Canceled Entry - Provider: Automatic Discharge Provider - Comment: Automatically canceled at discontinue of medication order) gabapentin (Neurontin) capsule 200 mg 200 mg, Oral, 3 times daily, First dose on Thu09/20/24 at 1400 1220 (Given - Provider: Bri Ayoub RN)1400 (Not Given - Provider: Bri Ayoub RN - Reason: Contraindicated - Comment: Patient took morning meds late because she stated she could not take them without antiemetic.)2144 (Given - Provider: Wallace Connor RN) 1028 (Given - Provider: Bri Ayoub RN)1644 (Given - Provider: Bri Ayoub RN)2253 (Given - Provider: Wallace Connor RN - Comment: PER PATIENT REQUEST) 0822 (Given - Provider: Miles Michelle RN)1400 (Canceled Entry - Provider: Automatic Discharge Provider - Comment: Automatically canceled at discontinue of medication order) mirtazapine (Remeron) tablet 15 mg 15 mg, Oral, Nightly, First dose (after last modification) on Thu09/20/24 at 2100 2145 (Given - Provider: Wallace Connor RN) 2254 (Given - Provider: Wallace Connor RN - Comment: PER PATIENT REQUEST) OLANZapine zydis (ZyPREXA) disintegrating tablet 5 mg 5 mg, Oral, Daily, First dose on Thu09/24/24 at 0600, For 6 doses 0643 (Given - Provider: Mary Pierre RN) 0524 (Given - Provider: Wallace Connor RN) 0600 (Not Given - Provider: Wallace Connor RN - Reason: Patient/family refused) pantoprazole (ProtoNix) EC tablet 40 mg 40 mg, Oral, 2 times daily before meals, First dose on Thu09/18/24 at 0700, Do not crush, chew, or split. 0644 (Given - Provider: Mary Pierre RN)1814 (Given - Provider: Bri Ayoub RN) 0523 (Given - Provider: Wallace Connor RN)1644 (Given - Provider: Bri Ayoub RN) 0600 (Not Given - Provider: Wallace Connor RN - Reason: Patient/family refused)1600 (Canceled Entry - Provider: Automatic Discharge Provider - Comment: Automatically canceled at discontinue of medication order) potassium chloride 40 mEq in NS 500 mL IVPB (premix) (COMPLETED) 40 mEq, IntraVENous, at 125 mL/hr, Administer over 4 Hours, Once, On Thu09/26/24 at 1315, For 1 dose, Max infusion rate = 10 mEq/hr 1817 (New Bag - Provider: Bri Ayoub RN)1900 (Restarted - Provider: Wallace Connor RN - Comment: IV infiltration per last shift nurse. Rapid called for new placement.Patient refuses to take oral) potassium chloride CR (Klor-Con M10) ER tablet 40 mEq 40 mEq, Oral, Once, On Thu09/26/24 at 1130, For 1 dose, Best given with food and plenty of water to minimize gastric irritation. Do not crush or chew. 1217 (Not Given - Provider: Bri Ayoub RN - Reason: Patient/family refused - Comment: Pt said oral K+ makes her sick) Potassium Chloride in NaCl IVPB 20 mEq 20 mEq, IntraVENous, Administer over 2 Hours, Once, On 09/24/24 at 1700, For 1 dose, Max infusion rate = 10 mEq/hr Potassium Chloride in NaCl IVPB 20 mEq (COMPLETED) 20 mEq, IntraVENous, Administer over 2 Hours, Once, On Tu09/27/24 at 1200, For 1 dose, Max infusion rate = 10 mEq/hr 1644 (New Bag - Provider: Bri Ayoub, RN)1844 (Stopped - Provider: Bri Ayoub RN) PRN Medication Order 09/26/2024 09/27/2024 09/28/2024 naloxone (Narcan) injection 0.4 mg 0.4 mg, IntraVENous, Every 5 min PRN, opioid reversal, respiratory depression, Starting on 09/18/24 at 1740, +++ For RR <10, pinpoint pupils, over sedation for opioid reversal - MUST notify traffic control specialist provider immediately after first dose, may give IM or SQ if no IV access +++ oxyCODONE (Roxicodone) immediate release tablet 10 mg 10 mg, Oral, Every 6 hours PRN, severe pain (7-10), moderate pain (4-6), Starting on 09/24/24 at 1300 0035 (Given - Provider: Mary Pierre RN)0644 (Given - Provider: Mary Pierre RN)1218 (Given - Provider: Bri Ayoub, EMY)1814 (Given - Provider: Bri Ayoub, EMY) 0151 (Given - Provider: Wallace Connor, RN)1034 (Given - Provider: Bri Ayoub, EMY)1644 (Given - Provider: Bri Ayoub, EMY)2254 (Given - Provider: Wallace Connor, EMY) polyethylene glycol (PEG) 3350 (Miralax) packet 17 g 17 g, Oral, Daily PRN, constipation, Starting on 09/17/24 at 2216, 1st line for treatment of constipation - give scheduled if no bowel movement in past 24 hours. prochlorperazine (Compazine) injection 10 mg(Linked Group 1) 10 mg, IntraVENous, Every 6 hours PRN, nausea, vomiting, Starting on 09/17/24 at 2216, 1st Line. Give IV if patient is unable to take orally. Give IM if patient is unable to take orally and does not have IV access. If inadequate response within 60 minutes, proceed to next-line agent or contact provider if no further options ordered. 0033 (Given - Provider: Mary Pierre RN)0641 (Given - Provider: Mary Pierre RN)1218 (Given - Provider: Bri Ayoub RN)1814 (Given - Provider: Bri Ayoub RN) 0151 (Given - Provider: Wallace Connor RN)1029 (Given - Provider: Bri Ayoub RN)1644 (Given - Provider: Bri Ayoub RN)2253 (Given - Provider: Wallace Connor RN) prochlorperazine (Compazine) suppository 25 mg(Linked Group 1) 25 mg, Rectal, Every 12 hours PRN, nausea, vomiting, Starting on 09/17/24 at 2216, 1st Line. Give SC if patient is unable to take orally or receive by injection. If inadequate response within 60 minutes, proceed to next-line agent or contact provider if no further options ordered. 0033 (See Alternative - Provider: Mary Pierre RN)0641 (See Alternative - Provider: Mary Pierre RN)1218 (See Alternative - Provider: Bri Ayoub RN)1814 (See Alternative - Provider: Bri Ayoub RN) 0151 (See Alternative - Provider: Wallace Connor RN)1029 (See Alternative - Provider: Bri Ayoub RN)1644 (See Alternative - Provider: Bri Ayoub RN)2253 (See Alternative - Provider: Wallace Connor RN) prochlorperazine (Compazine) tablet 10 mg(Linked Group 1) 10 mg, Oral, Every 6 hours PRN, nausea, vomiting, Starting on 09/17/24 at 2216, 1st Line. If inadequate response within 60 minutes, proceed to next-line agent or contact provider if no further options ordered. 0033 (See Alternative - Provider: Mary Pierre RN)0641 (See Alternative - Provider: Mary Pierre RN)1218 (See Alternative - Provider: Bri Ayoub RN)1814 (See Alternative - Provider: Bri Ayoub RN) 0151 (See Alternative - Provider: Wallace Connor RN)1029 (See Alternative - Provider: Bri Ayoub, RN)1644 (See Alternative - Provider: Bri Ayoub, RN)2253 (See Alternative - Provider: Wallace Connor RN) Linked Groups Order Group 1: prochlorperazine (Compazine) tablet 10 mgJump to med 10 mg, Oral, Every 6 hours PRN, nausea, vomiting, Starting on 09/17/24 at 2216, 1st Line. If inadequate response within 60 minutes, proceed to next-line agent or contact provider if no further options ordered. Or prochlorperazine (Compazine) injection 10 mgJump to med 10 mg, IntraVENous, Every 6 hours PRN, nausea, vomiting, Starting on 09/17/24 at 2216, 1st Line. Give IV if patient is unable to take orally. Give IM if patient is unable to take orally and does not have IV access. If inadequate response within 60 minutes, proceed to next-line agent or contact provider if no further options ordered. Or prochlorperazine (Compazine) suppository 25 mgJump to med 25 mg, Rectal, Every 12 hours PRN, nausea, vomiting, Starting on 09/17/24 at 2216, 1st Line. Give SC if patient is unable to take orally or receive by injection. If inadequate response within 60 minutes, proceed to next-line agent or contact provider if no further options ordered. Scheduled Medication Order 12/16/2024 12/17/2024 12/18/2024 dicyclomine (Bentyl) injection 20 mg (COMPLETED) 20 mg, IntraMUSCular, Once, On 12/18/24 at 0735, For 1 dose 08 (Given - Provid er: Natalee Garcia RN) haloperidol lactate (Haldol) injection 2 mg (COMPLETED) 2 mg, IntraVENous, Once, On 12/18/24 at 0735, For 1 dose, IM route of administration preferred. Because of the risk of TdP and QT prolongation, ECG monitoring is recommended if haloperidol is given IV 0822 (Given - Provid er: Natalee Garcia RN) ketorolac (Toradol) injection 15 mg (COMPLETED) 15 mg, IntraVENous, Once, On 12/18/24 at 0735, For 1 dose 0823 (Given - Provid er: Natalee Garcia RN) ondansetron (Zofran) injection 4 mg (COMPLETED) 4 mg, IntraVENous, Once, On Thu12/18/24 at 0945, For 1 dose 0953 (Given - Provid er: Natalee Garcia RN) sodium chloride 0.9 % bolus 1,000 mL (COMPLETED) 1,000 mL, IntraVENous, at 1,000 mL/hr, Administer over 1 Hours, Once, On Thu12/18/24 at 0735, For 1 dose 0820 (New Bag - Prov ider: Natalee Garcia RN)0920 (Stopped - Provider: Natacha Bravo RN) Scheduled Medication Order 03/13/2025 03/14/2025 03/15/2025 aluminum & magnesium hydroxide-simethicone (Mylanta) 200-200-20 MG/5ML oral suspension 20 mL (COMPLETED) 20 mL, Oral, Once, On Thu03/15/25 at 0450, For 1 dose 05 (Given - Provid er: Jani Montez RN) amitriptyline (Elavil) tablet 10 mg 10 mg, Oral, Daily, First dose on Thu03/15/25 at 1015 1015 (Canceled Entry - Provider: Automatic Discharge Provider - Comment: Automatically canceled at discontinue of medication order) dicyclomine (Bentyl) capsule 10 mg 10 mg, Oral, 4 times daily, First dose on Thu03/15/25 at 1300 1300 (Canceled Entry - Provider: Automatic Discharge Provider - Comment: Automatically canceled at discontinue of medication order) famotidine (Pepcid) 20 mg in sodium chloride (PF) 0.9 % 10 mL injection (COMPLETED) 20 mg, IntraVENous, Administer over 2 Minutes, Once, On Thu03/15/25 at 0450, For 1 dose, IV Push over minimum of 2 minutes - Dilute with 10 mL NS 0522 (Given - Provid er: Jani Montez RN) gabapentin (Neurontin) capsule 600 mg 600 mg, Oral, 3 times daily, First dose on Thu03/15/25 at 1015 1015 (Canceled Entry - Provider: Automatic Discharge Provider - Comment: Automatically canceled at discontinue of medication order)1400 (Canceled Entry - Provider: Automatic Discharge Provider - Comment: Automatically canceled at discontinue of medication order) haloperidol lactate (Haldol) injection 2 mg (COMPLETED) 2 mg, IntraMUSCular, Once, On Thu03/15/25 at 0450, For 1 dose, IM route of administration preferred. Because of the risk of TdP and QT prolongation, ECG monitoring is recommended if haloperidol is given IV 0526 (Given - Provid er: Jani Montez RN) hyoscyamine (Levsin) SL tablet 125 mcg 125 mcg, Oral, 3 times daily, First dose on Thu03/15/25 at 1400 1400 (Canceled Entry - Provider: Automatic Discharge Provider - Comment: Automatically canceled at discontinue of medication order) ketamine 24.5 mg in sodium chloride 0.9 % 50 mL ivpb (COMPLETED) 24.5 mg (rounded from 24.375 mg = 0.25 mg/kg 97.5 kg), IntraVENous, at 157.4 mL/hr, Administer over 20 Minutes, Once, On Thu03/15/25 at 0300, For 1 dose 0303 (New Bag - Prov ider: Jani Montez RN)0407 (Stopped - Provider: Jani Montez RN) ketorolac (Toradol) injection 30 mg (COMPLETED) 30 mg, IntraVENous, Once, On Thu03/15/25 at 0355, For 1 dose 0403 (Given - Provid er: Jani Montez RN) methocarbamol (Robaxin) tablet 500 mg 500 mg, Oral, 4 times daily, First dose on Thu03/15/25 at 1015 1015 (Canceled Entry - Provider: Automatic Discharge Provider - Comment: Automatically canceled at discontinue of medication order)1300 (Canceled Entry - Provider: Automatic Discharge Provider - Comment: Automatically canceled at discontinue of medication order) mirtazapine (Remeron) tablet 15 mg 15 mg, Oral, Nightly, First dose on Thu03/15/25 at 2100 ondansetron (Zofran) injection 4 mg (COMPLETED) 4 mg, IntraVENous, Once, On Thu03/15/25 at 0140, For 1 dose 0240 (Given - Provid er: Alen Bell, ADIEL) pantoprazole (ProtoNix) EC tablet 40 mg 40 mg, Oral, 2 times daily before meals, First dose on Thu03/15/25 at 1600, Do not crush, chew, or split. potassium chloride 40 mEq in NS 500 mL IVPB (premix) 40 mEq, IntraVENous, at 125 mL/hr, Administer over 4 Hours, Once, On Thu03/15/25 at 0945, For 1 dose, Max infusion rate = 10 mEq/hr 1000 (New Bag - Prov ider: Iva Valladares, EMY)1400 (Due: Stopped - Provider: Iva Valladares RN) sodium chloride 0.9 % bolus 1,000 mL (COMPLETED) 1,000 mL, IntraVENous, at 1,000 mL/hr, Administer over 1 Hours, Once, On Thu03/15/25 at 0140, For 1 dose 0238 (New Bag - Prov ider: Alen Bell, EMT)0531 (Rate/Dose Verify - Provider: Jani Montez RN)0710 (Stopped - Provider: Jani Montez RN) Continuous Medication Order 03/13/2025 03/14/2025 03/15/2025 sodium chloride 0.9 % infusion 125 mL/hr, IntraVENous, Continuous, Starting on Thu03/15/25 at 1145 1145 (Canceled Entry - Provider: Automatic Discharge Provider - Comment: Automatically canceled at discontinue of medication order) PRN Medication Order 03/13/2025 03/14/2025 03/15/2025 acetaminophen (Tylenol) suppository 650 mg(Linked Group 1) 650 mg, Rectal, Every 6 hours PRN, mild pain (1-3), fever, For temp greater than 100.4 F (38 C), Starting on Thu03/15/25 at 1132, Administer if oral route cannot be used. Maximum dose of acetaminophen is 4000 mg from all sources in 24 hours. acetaminophen (Tylenol) tablet 650 mg(Linked Group 1) 650 mg, Oral, Every 6 hours PRN, mild pain (1-3), fever, For temp greater than 100.4 F (38 C), Starting on Thu03/15/25 at 1132, Maximum dose of acetaminophen is 4000 mg from all sources in 24 hours. ALPRAZolam (Xanax) tablet 0.5 mg 0.5 mg, Oral, 3 times daily PRN, anxiety, Starting on Thu03/15/25 at 1013 1044 (Given - Provid er: Bindu Villalta, EMY) ketorolac (Toradol) injection 30 mg 30 mg, IntraVENous, Every 6 hours PRN, severe pain (7-10), moderate pain (4-6), Starting on Thu03/15/25 at 1131, For 1 day 1212 (Given - Provid er: Bindu Villalta RN) metoclopramide (Reglan) injection 10 mg 10 mg, IntraVENous, Every 6 hours PRN, nausea, vomiting, Starting on Thu03/15/25 at 1013, Give if unable to tolerate po. ondansetron (Zofran) injection 4 mg(Linked Group 2) 4 mg, IntraVENous, Every 6 hours PRN, nausea, vomiting, Starting on Thu03/15/25 at 1132, 1st Line. Give IV if patient is unable to take orally. If inadequate response within 60 minutes, proceed to next-line agent or contact provider if no further options ordered. ondansetron ODT (Zofran-ODT) disintegrating tablet 4 mg(Linked Group 2) 4 mg, Oral, Every 8 hours PRN, nausea, vomiting, Starting on Thu03/15/25 at 1132, 1st Line. If inadequate response within 60 minutes, proceed to next-line agent or contact provider if no further options ordered. Patient should allow tablet to dissolve on tongue. Do not remove from blister pack until just before administering. polyethylene glycol (PEG) 3350 (Miralax) packet 17 g 17 g, Oral, Daily PRN, constipation, Starting on Thu03/15/25 at 1132, 1st line for treatment of constipation - give scheduled if no bowel movement in past 24 hours. Linked Groups Order Group 1: acetaminophen (Tylenol) tablet 650 mgJump to med 650 mg, Oral, Every 6 hours PRN, mild pain (1-3), fever, For temp greater than 100.4 F (38 C), Starting on Thu03/15/25 at 1132, Maximum dose of acetaminophen is 4000 mg from all sources in 24 hours. Or acetaminophen (Tylenol) suppository 650 mgJump to med 650 mg, Rectal, Every 6 hours PRN, mild pain (1-3), fever, For temp greater than 100.4 F (38 C), Starting on Thu03/15/25 at 1132, Administer if oral route cannot be used. Maximum dose of acetaminophen is 4000 mg from all sources in 24 hours. Group 2: ondansetron ODT (Zofran-ODT) disintegrating tablet 4 mgJump to med 4 mg, Oral, Every 8 hours PRN, nausea, vomiting, Starting on Thu03/15/25 at 1132, 1st Line. If inadequate response within 60 minutes, proceed to next-line agent or contact provider if no further options ordered. Patient should allow tablet to dissolve on tongue. Do not remove from blister pack until just before administering. Or ondansetron (Zofran) injection 4 mgJump to med 4 mg, IntraVENous, Every 6 hours PRN, nausea, vomiting, Starting on Thu03/15/25 at 1132, 1st Line. Give IV if patient is unable to take orally. If inadequate response within 60 minutes, proceed to next-line agent or contact provider if no further options ordered. Reason for Visit (unrecogniz ed section and content) Reason Comments Fever pt c/o fever/abd donald n/ painful urination and pain with BM. pt states she was seen in the ER past 2 days, dx with UTI & kidney stone. pt now having fever of 103.8 and unable to keep any medications down. pt had hysterectomy last month, with compliation of burning hole in left ueter tube. Abdominal Pain Reason Comments Nausea pt arrives from [facility] with continuous nausea and vomiting for 5 days. pt had recent stent placement after having multiple issues previously. states that she was at [facility] where she was given a shot of morphine and told to come here. Emesis Reason Comments Abdominal Pain symptoms all day, domo [place] scheduled on Sep 09 for a ureter issue Emesis Reason Comments Urinary Tract Infection pt c/o vomitting x 3 days & UTI pt was sent by [facility] she is to have a procedure in 5 days and states the dehyrdation and infection needs taken care of or they will postpone her surgery. states pt continues to come to ER for same complaints the past few days and keeps getting sent home and issues arent resolving Nausea Emesis Reason Comments Abdominal Pain For last 3 months, w urbanoe yesterday and today, many emesis yesterday, denies diarrhea. Specialty Diagnoses / Procedures Referred By Contac t Referred To Contact Diagnoses Intractable abdominal pain Intractable nausea and vomiting Procedures .. Aba Godinez MD [address] [place] [address] Phone: tel: fax: [facility] Clinical Decision Unit CDU [address] [place] [address] Phone: tel: Referral ID Status Reason Start Date Expiration Date Visits Re quested Visits Authorized [id number] 1 1 Reason Comments Abdominal Pain Patient c/o abd pain /nausea/vomiting x 3 months. Patient stating pain is now a 10/10. States the pain causes the nausea/vomiting. Patient currently a/o x 4. GCS 15. No distress noted. Specialty Diagnoses / Procedures Referred By Contac t Referred To Contact Diagnoses Hypokalemia Intractable abdominal pain Nausea and vomiting, unspecified vomiting type Procedures 0 Donavan Nieves DO [address] [place] [address] Phone: tel: fax: [facility] Observation Unit [address] [place] [address] Phone: tel: Referral ID Status Reason Start Date Expiration Date Visits Re quested Visits Authorized [id number] 1 1 Reason Comments Appointment Reason Comments Abdominal Pain Abdominal pain x 4 m onths. Reason Comments New Patient chronic abd pain, wi th nausea and vomiting Reason Comments Medication Update New Patient Evaluation Reason Comments Abdominal Pain Pt presents to ED th rough triage for abdominal pain x1 week. N/V/D. Pt A&Ox3 on arrival, pain 10/10. Care Teams (unrecognized sec tion and content) Team Status: Active Member Role Status Dates Dr. Tj Willams MD Primary Care Provider Activ e Team Status: Inactive Member Role Status Dates Dr. Tj Willams MD Primary Care Provider Activ e Kevin San MD Emergency Provider Active Director Speech Relationship Specialty Start Date End Date Hali Henry MD [address] [place] [address] PCP - General Internal Medicine 03/14/21 Director Speech Relationship Specialty Start Date End Date Hali Henry MD [address] [place] [address] PCP - General Internal Medicine 03/14/21 Director Speech Relationship Specialty Start Date End Date Hali Henry MD [address] [place] [address] PCP - General Internal Medicine 03/14/21 Director Speech Relationship Specialty Start Date End Date Hali Henry MD [address] [place] [address] PCP - General Internal Medicine 03/14/21 Director Speech Relationship Specialty Start Date End Date Hali Henry MD [address] [place] [address] PCP - General Internal Medicine 03/14/21 Director Speech Relationship Specialty Start Date End Date Hali Henry MD [address] [place] [address] PCP - General Internal Medicine 03/14/21 Team Status: Active Member Role Status Dates DEFINED NOT Primary Care Provider Active Team Status: Inactive Member Role Status Dates DEFINED NOT Primary Care Provider Active Dr. Jamey Henriquez MD Emergency Provider Active Team Status: Inactive Member Role Status Dates DEFINED NOT Primary Care Provider Active Dr. Jamey Henriquez MD Attending Provider, Emergency Provi liat Active Team Status: Inactive Member Role Status Dates Dr. Jamey Henriquez MD Emergency Provider Active Team Status: Active Member Role Status Dates No Primary Care Physician Primary Care Provider Active Team Status: Active Member Role Status Dates Dr. Moose Liu MD Emergency Provider Active No Primary Care Physician Primary Care Provider Active Dr. Ashley Zepeda DO Admit Provider, Att ending Provider, Other Provider Active Team Status: Active Member Role Status Dates Dr. Moose Liu MD Emergency Provider Active No Primary Care Physician Primary Care Provider Active Dr. Ashley Zepeda DO Admit Provider, Attending Provide r Active Team Status: Active Member Role Status Dates Dr. Moose Liu MD Emergency Provider Active No Primary Care Physician Primary Care Provider Active Dr. Ashley Duane , DO Admit Provider, Other Provider Ac tive Dr. Daniel Fatima MD Attending Provider, Other Provid er Active Team Status: Inactive Member Role Status Dates Dr. Moose Liu MD Emergency Provider Active No Primary Care Physician Primary Care Provider Active Dr. Ashley Zepeda , DO Admit Provider, Other Provider Ac tive Dr. Daniel Fatima MD Attending Provider Active Team Status: Active Member Role Status Dates Dr. Patti Santos , DO Emergency Provider Active Dr. Tj Willams MD Primary Care Provider Activ e Dr. Sandy Solis MD Admit Provider, Attending Prov ider Active Team Status: Active Member Role Status Dates Dr. Patti Santos , DO Emergency Provider Active Dr. Tj Willams MD Primary Care Provider Activ e Dr. Sandy Solis MD Admit Provider, Other Provider Active Dr. Daniel Fatima MD Attending Provider, Other Provid er Active Team Status: Inactive Member Role Status Dates Dr. Patti Santos , DO Emergency Provider Active Dr. Tj Willams MD Primary Care Provider Activ e Dr. Sandy Solis MD Admit Provider, Other Provider Active Dr. Jade Rowell , Attending Provider Active Dr. Daniel Fatima MD Other Provider Active Dr. Corine Combs , DO Other Provider Active Team Status: Active Member Role Status Dates Dr. Patti Santos , DO Emergency Provider Active Dr. Tj Willams MD Primary Care Provider Activ e Dr. Sandy Solis MD Admit Provider, Other Provider Active Dr. Jade Rowell , DO Other Provider Active Dr. Daniel Fatima MD Other Provider Active Dr. Corine Combs , DO Attending Provider, Other Prov ider Active Team Status: Inactive Member Role Status Dates Dr. Jamey Henriquez MD Attending Provider, Emergency Provi liat Active Team Status: Inactive Member Role Status Dates Dr. Tj Willams MD Primary Care Provider Activ e Dr. Hakeem Silva MD Emergency Provider Active Team Status: Active Member Role Status Dates Dr. Patti Santos , DO Emergency Provider Active Dr. Tj Willams MD Primary Care Provider Activ e Dr. Sandy Solis MD Admit Provider, Other Provider Active Dr. Jade Rowell , DO Attending Provider, Other Pro vider Active Dr. Daniel Fatima MD Other Provider Active Dr. Corine Combs , DO Other Provider Active Team Status: Active Member Role Status Dates Dr. Tj Willams MD Primary Care Provider Activ e Kevin San MD Emergency Provider Active Dr. Rodolfo Reid MD Admit Provider, A ttending Provider, Other Provider Active Team Status: Active Member Role Status Dates Dr. Tj Willams MD Primary Care Provider Activ e Kevin San MD Emergency Provider Active Dr. Rodolfo Reid MD Admit Provider, Other Provider Active Dr. Josué Marquez DO Other Provider Active Dr. Corine Combs DO Attending Provider Active Team Status: Active Member Role Status Dates Dr. Tj Willams MD Primary Care Provider Activ e Dr. Corine Combs DO Attending Provider Active Team Status: Active Member Role Status Dates Dr. Tj Willams MD Primary Care Provider Activ e Kevin San MD Emergency Provider Active Dr. Rodolfo Reid MD Admit Provider, Other Provider Active Dr. Josué Marquez DO Attending Provider, Other Provid er Active Team Status: Inactive Member Role Status Dates Dr. Tj Willams MD Primary Care Provider Activ e Dr. Hakeem Silva MD Attending Provider, Emergency Provider Active Team Status: Inactive Member Role Status Dates Dr. Tj Willams MD Primary Care Provider Activ e Kevin San MD Emergency Provider Active Dr. Rodolfo Reid MD Admit Provider, Other Provider Active Dr. Josué Marquez DO Attending Provider Active Director Speech Relationship Specialty Start Date End Date Corine Combs DO [address] [address] PCP - General Gastroenterology 07/29/24 Director Speech Relationship Specialty Start Date End Date Boy Solis [address] [place] [address] PCP - General Rheumatology 03/17/25 Goals (unrecognized section and content) Goals may be documented in a n alternate section INFORMATION SOURCE (unrecogn ized section and content) DATE CREATED AUTHOR 02/08/2022 [facility] DATE CREATED AUTHOR AUTHOR'S ORGANIZ ATION 03/06/2023 [facility] ([place]) DATE CREATED AUTHOR AUTHOR'S ORGANIZ ATION 08/16/2024 [facility] DATE CREATED AUTHOR AUTHOR'S ORGANIZ ATION 08/24/2024 [facility] DATE CREATED AUTHOR AUTHOR'S ORGANIZ ATION 09/30/2024 [facility] DATE CREATED AUTHOR AUTHOR'S ORGANIZ ATION 10/06/2024 [facility] DATE CREATED AUTHOR AUTHOR'S ORGANIZ ATION 10/12/2024 [facility] DATE CREATED AUTHOR AUTHOR'S ORGANIZ ATION 01/03/2025 [facility] DATE CREATED AUTHOR AUTHOR'S ORGANIZ ATION 03/19/2025 [facility] DATE CREATED AUTHOR AUTHOR'S ORGANIZ ATION 03/20/2025 [facility] DATE CREATED AUTHOR AUTHOR'S ORGANIZ ATION 03/20/2025 [facility] DATE CREATED AUTHOR AUTHOR'S ORGANIZ ATION 03/25/2025 [facility] DATE CREATED AUTHOR AUTHOR'S ORGANIZ ATION 03/26/2025 [facility] Source Comments (unrecognize d section and content) In the event this informatio n is protected by the Federal Confidentiality of Alcohol and Drug Abuse Patient Records regulations: The Federal rules restrict any use of the information to criminally investigate or prosecute any alcohol or drug abuse patient.[facility] the event this information is protected by the Federal Confidentiality of Alcohol and Drug Abuse Patient Records regulations: The Federal rules restrict any use of the information to criminally investigate or prosecute any alcohol or drug abuse patient.[facility] the event this information is protected by the Federal Confidentiality of Alcohol and Drug Abuse Patient Records regulations: The Federal rules restrict any use of the information to criminally investigate or prosecute any alcohol or drug abuse patient.[facility] the event this information is protected by the Federal Confidentiality of Alcohol and Drug Abuse Patient Records regulations: The Federal rules restrict any use of the information to criminally investigate or prosecute any alcohol or drug abuse patient.[facility] the event this information is protected by the Federal Confidentiality of Alcohol and Drug Abuse Patient Records regulations: The Federal rules restrict any use of the information to criminally investigate or prosecute any alcohol or drug abuse patient.[facility] the event this information is protected by the Federal Confidentiality of Alcohol and Drug Abuse Patient Records regulations: The Federal rules restrict any use of the information to criminally investigate or prosecute any alcohol or drug abuse patient.[facility] the event this information is protected by the Federal Confidentiality of Alcohol and Drug Abuse Patient Records regulations: The Federal rules restrict any use of the information to criminally investigate or prosecute any alcohol or drug abuse patient.[facility] the event this information is protected by the Federal Confidentiality of Alcohol and Drug Abuse Patient Records regulations: The Federal rules restrict any use of the information to criminally investigate or prosecute any alcohol or drug abuse patient.[facility] System[facility] the event this information is protected by the Federal Confidentiality of Alcohol and Drug Abuse Patient Records regulations: The Federal rules restrict any use of the information to criminally investigate or prosecute any alcohol or drug abuse patient.[facility] FOR RECORDS PERTAINING TO PATIENTS WHO ARE OR HAVE BEEN ENROLLED IN A CHEMICAL DEPENDENCY/SUBSTANCEABUSE PROGRAM, SOME INFORMATION MAY BE OMITTED. This clinical summary was aggregated from multiple sources. Caution should be exercised in using it in the provision of clinical care. This summary normalizes information from multiple sources, and as a consequence, information in this document may materially change the coding, format and clinical context of patient data. In addition, data may be omitted in some cases. CLINICAL DECISIONS SHOULD BE BASED ON THE PRIMARY CLINICAL RECORDS. [email or web address]. provides no warranty or guarantee of the accuracy or completeness of information in this document.
[2025-03-27 23:06] VITALS: BP 148/89; PULSE 87; RESP 18
--- NOTE | 2025-03-27 23:28 | RAD_ITS ---
PROCEDURE: CHEST PA AND LATERAL 03/27/2025 REASON FOR EXAM: RIB CAGE PAIN POST FALL A WEEK AGO. TECHNIQUE: CHEST PA AND LATERAL COMPARISON: 07/23/2024 FINDINGS: Scoliosis. Normal heart size. Well inflated lungs. No consolidation, effusion or pneumothorax. No definite rib fracture. RAD/Chest PA and Lateral IMPRESSION: No acute chest findings. Reading Location: [place] [address]
== END 2025-03-27 23:52 | disposition home or self-care (01) ==
PROVIDERS: Emergency Provider Emergency Medicine; Visit Provider Emergency Medicine
DX: M25.561 Pain in right knee (principal); I10 Essential (primary) hypertension; Z90.710 Acquired absence of both cervix and uterus; S83.91XA Sprain of unspecified site of right knee, initial encounter; S20.20XA Contusion of thorax, unspecified, initial encounter; Z85.42 Personal history of malignant neoplasm of other parts of uterus; W10.9XXA Fall (on) (from) unspecified stairs and steps, initial encounter; Y92.009 Unspecified place in unspecified non-institutional (private) residence as the place of occurrence of the external cause; Z90.49 Acquired absence of other specified parts of digestive tract; Z79.899 Other long term (current) drug therapy; S30.0XXA Contusion of lower back and pelvis, initial encounter
CPT/HCPCS: 71046; 73564; 99282

== ENCOUNTER 2025-04-05 09:38 | Emergency (ER) | payer MEDICAID, SELFPAY ==
[2025-04-05 09:38] VITALS: BP 143/101; PULSE 117; RESP 20; TEMP 36.1; O2SAT 98
--- NOTE | 2025-04-05 09:57 | CT_ITS ---
PROCEDURE: ABDOMEN/PELVIS W IV CONT ONLY 04/05/2025 REASON FOR EXAM: RIGHT LOWER QUADRANT ABDOMINAL PAIN TECHNIQUE: ABDOMEN/PELVIS W IV CONT ONLY Coronal and Sagittal reconstruction series were provided. CONTRAST: Isovue 3 Lin VOLUME: 100 mL One or more dose reduction techniques were used (e.g., Automated exposure control, adjustment of the mA and/or kV according to patient size, use of iterative reconstruction technique. RADIATION DOSE SUMMARY: CTDlvol: 17.6 mGy DLP: 1329.57 mGycm COMPARISON: Prior study dated December 14, 2024. FINDINGS: Lung bases: The lung bases are clear. Liver: Normal size. No mass. Gallbladder: Surgically absent. Spleen: Normal size. Pancreas: Normal size without evidence of mass surrounding inflammation or ductal dilation. Adrenals: Unremarkable Kidneys: Normal renal sizes. No hydronephrosis. Bladder: Unremarkable Reproductive Organs: Prior hysterectomy. Adnexal regions are unremarkable. Bowel: Scattered sigmoid diverticula Appendix: Appendix is unremarkable. Lymph nodes: Small benign-appearing retroperitoneal lymph nodes. Vasculature: Unremarkable Peritoneum / Retroperitoneum: Unremarkable Bones: Unremarkable CT/Abdomen/Pelvis W IV Cont ONLY IMPRESSION: Status post cholecystectomy. 9 the appendix is unremarkable. Reading Location: [place]
--- NOTE | 2025-04-05 10:03 | EX.ED.DYSGE1 ---
HPI History of Present Illness Chief Complaint: Abd Pain Narrative Narrative: Chief complaint and HPI: Right lower quadrant abdominal pain. 24-year-old female with past medical history of chronic abdominal pain, hysterectomy, cholecystectomy presents for evaluation of right lower quadrant abdominal pain. On chart review, patient has been seen in our emergency department for multiple complaints of abdominal pain. She follows with GI at [facility]. States she used to work see Dr. Gnun however was discharged from this practice. Patient states yesterday evening she developed right lower quadrant abdominal pain. She denies any fever, chills, shortness of breath, chest pain, nausea, vomiting, diarrhea, constipation, dysuria. States she is worried that it could be pancreatitis although is not having any right upper quadrant or epigastric abdominal pain. Patient has a history of marijuana abuse. Review of systems: See HPI Medications: As listed on the chart Allergies: As listed on the chart PFSH: Per chart Vital signs: As listed on the chart. Reviewed. Physical exam: Gen: A&O x3, NAD Head: Normocephalic, atraumatic Eyes: No sclera icterus, conjunctiva clear ENT: Moist mucous membranes Neck: Trachea midline, No JVD CV: Tachycardic, regular rhythm, no murmurs, no peripheral edema Resp: Lungs CTA BL, no w/r/c GI: Abd soft, non-distended, mildly tender to palpation in the right lower quadrant, no r/r/g : No CVA tenderness Musc: Full ROM, no deformity Skin: Warm, dry Neuro: Alert, oriented, grossly intact, sensation intact Psych: Cooperative, appropriate mood and affect [facility] Medical History Cholecystectomy planned Intractable nausea and vomiting Gastroparesis Cyclic vomiting syndrome History of alcohol abuse Ureteral stricture, left Retained ureteral stent Hypertension Depression Ureterolithiasis Ureter injury Non-smoker Endometrial cancer PCOS (polycystic ovarian syndrome) Home Medications ?Medication ?Instructions ?Recorded ?Last Taken ?Type gabapentin 600 mg tablet 600 mg PO TID #90 tabs 11/30/24 11/30/24 Rx methocarbamol 500 mg tablet 500 mg PO TID #90 tabs 11/30/24 11/30/24 Rx mirtazapine 15 mg disintegrating 15 mg PO QHS #30 tabs 11/30/24 11/30/24 Rx tablet ondansetron 4 mg disintegrating 4 mg PO Q6H PRN nausea and 11/30/24 11/30/24 Rx tablet vomiting #90 tabs pantoprazole 40 mg tablet,delayed 40 mg PO BID #60 TABLETS 11/30/24 11/30/24 Rx release dicyclomine 10 mg capsule 10 mg PO TID #90 caps 01/31/25 Unknown Rx alprazolam 0.5 mg tablet 0.5 mg PO TID PRN PRN abdominal 03/22/25 Unknown History Held on 03/22/25. pain Instructions: in between scripts at [facility] amitriptyline 10 mg tablet 10 mg PO QHS 03/22/25 Unknown History hyoscyamine sulfate 0.125 mg 0.125 mg sublingual 4X/DAY 03/22/25 Unknown History sublingual tablet metoclopramide HCl 5 mg/5 mL oral 10 mg PO TID 03/22/25 Unknown History solution Allergy/AdvReac Type Severity Reaction Status Date / Time ceftriaxone (From Rocephin) Allergy Hives Verified 04/05/25 09:39 promethazine (From Phenergan) Allergy Vomiting Verified 04/05/25 09:39 Ringer's solution,lactated Allergy Hives Verified 04/05/25 09:39 acetaminophen (From [place]) AdvReac Nausea Verified 04/05/25 09:39 hydrocodone (From [place]) AdvReac Nausea Verified 04/05/25 09:39 Family History Father No problems noted. Mother Anxiety and depression GERD (gastroesophageal reflux disease) Surgical History History of renal stent History of hysterectomy for cancer Social History household members: family Smoking Status: Never smoker alcohol intake: former substance use type: marijuana and other details: No marijuana use in the last month EXAM Physical Exam Const Vital Signs: 04/05/25 09:38 04/05/25 11:38 Temperature 96.9 F L Temperature Source Temporal Pulse Rate 117 H 94 Respiratory Rate 20 H 16 Blood Pressure 143/101 H 147/97 H Blood Pressure Mean 115 113 Pulse Ox 98 99 Oxygen Delivery Method Room Air Room Air MDM MDM MDM Narrative Medical decision making narrative: 24-year-old female with past medical history of chronic abdominal pain, hysterectomy, cholecystectomy presents for evaluation of right lower quadrant abdominal pain. On chart review, patient has been seen in our emergency department for multiple complaints of abdominal pain. She follows with GI at [facility]. States she used to work see Dr. Gunn however was discharged from this practice. Patient states yesterday evening she developed right lower quadrant abdominal pain. She worried that it could be pancreatitis although is not having any right upper quadrant or epigastric abdominal pain. Differential diagnosis includes but is not limited to appendicitis, gastroenteritis, UTI, urolithiasis, suspect less likely pancreatitis. NS bolus, Zofran, morphine ordered for symptoms. Abdominal pain workup ordered including CT abdomen pelvis. CBC without leukocytosis. Patient has anemia with hemoglobin of 10.2. History of this in the past on previous labs. Platelets unremarkable. CMP relatively unremarkable except for mild hypokalemia. P.o. potassium ordered. No transaminitis. Lipase unremarkable. UA negative for UTI. CT abdomen pelvis shows status postcholecystectomy. Appendix is unremarkable. Patient does have small benign-appearing retroperitoneal lymph nodes. Adnexal regions are unremarkable. Diverticuli without diverticulitis. At this point in time, no clear etiology for patient's abdominal pain. On reevaluation, abdominal pain is improved. Patient stable to discharge home. Return precautions explained. Follow-up with her GI physician and PCP. She agreed and understand the plan. Impression: 1. Right lower quadrant abdominal pain 2. History of chronic abdominal pain 3. Mild hypokalemia 4. Chronic anemia Lab Data Labs: Laboratory Results - last 24 hr 04/05/25 04/05/25 10:25 11:16 WBC 7.0 RBC 4.30 Hgb 10.2 L Hct 33.1 L MCV 77.0 L MCH 23.7 L MCHC 30.8 L RDW Std Deviation 50.9 H RDW Coeff of Roz 18.3 H Plt Count 247 MPV 9.0 Immature Gran % (Auto) 0.100 Neut % (Auto) 76.4 H Lymph % (Auto) 15.2 L [place] % (Auto) 7.0 Eos % (Auto) 0.9 Baso % (Auto) 0.4 Absolute Neuts (auto) 5.4 Absolute Lymphs (auto) 1.07 Nucleated RBC % 0 Sodium 141 Potassium 3.1 L Chloride 104 Carbon Dioxide 24.9 Anion Gap 12 BUN 4 Creatinine 0.67 L Est GFR (MDRD) Non-Af 124 BUN/Creatinine Ratio 6.3 L Glucose 96 Calcium 9.3 Total Bilirubin 0.24 AST 19 ALT 18 Alkaline Phosphatase 47 Total Protein 6.8 Albumin 4.0 Globulin 2.8 Albumin/Globulin Ratio 1.4 Lipase 37 Urine Color Straw Urine Clarity Clear Urine pH 8.0 Ur Specific [place] 1.015 Urine Protein Negative Urine Glucose (UA) Normal Urine Ketones Negative Urine Occult Blood Negative Urine Nitrite Negative Urine Bilirubin Negative Urine Urobilinogen Normal Ur Leukocyte Esterase Negative Urine RBC 0 SEEN Urine WBC 0-5 SEEN Ur Squamous Epith Cells 0 SEEN Urine Bacteria 0 SEEN Urine Mucus 0 SEEN Radiography Diagnostic Testing: Clinical Impression(s) from Imaging Studies Abdomen/Pelvis CT 04/05/25 09:57 IMPRESSION: Status post cholecystectomy. 9 the appendix is unremarkable. Reading Location: [id number] Discharge Plan Triage Chief Complaint: Abd Pain ED Provider: Yair Cano Dx/Rx/DC Orders Prescriptions: No Action gabapentin 600 mg tablet 600 mg PO TID Qty: 90 2RF methocarbamol 500 mg tablet 500 mg PO TID Qty: 90 0RF mirtazapine 15 mg tablet,disintegrating 15 mg PO QHS Qty: 30 2RF ondansetron 4 mg tablet,disintegrating 4 mg PO Q6H PRN (Reason: nausea and vomiting) Qty: 90 0RF pantoprazole 40 mg tablet,delayed release (DR/EC) 40 mg PO BID Qty: 60 2RF metoclopramide HCl 5 mg/5 mL solution 10 mg PO TID alprazolam 0.5 mg tablet 0.5 mg PO TID PRN PRN (Reason: abdominal pain) amitriptyline 10 mg tablet 10 mg PO QHS hyoscyamine sulfate 0.125 mg tablet, sublingual 0.125 mg sublingual 4X/DAY dicyclomine 10 mg capsule 10 mg PO TID Qty: 90 0RF Primary Care Provider: Care Physician,No Primary Referrals: Care Physician,No Primary [Primary Care Provider] - Print Language: Irish
[2025-04-05 10:37] LABS: Hematocrit 33.1 % (37-47); Hemoglobin 10.2 g/dL (12.0-15.0); Immature Granulocytes Count 0.010 X10^3/uL (0.0-0.0); Mean Corp Hgb Conc 30.8 g/dL (32-36); Mean Corpuscular Volume 77.0 fL (81-99); Mean Platelet Vol. 9.0 fl (6.2-12.0); NRBC Flagged by Analyzer 0 % (0-5); Platelet Count 247 K/mm3 (150-450); RBC Distribution Width CV 18.3 % (11.6-14.6); RBC Distribution Width SD 50.9 fl (35.1-43.9); Red Blood Count 4.30 M/mm3 (4.2-5.4); White Blood Count 7.0 K/mm3 (4.4-11.0)
[2025-04-05] MEDS: 0.9% Normal Saline (1000mL) 1,000 ML 999 ML IV (10:44)
[2025-04-05 11:16] LABS: AST(SGOT) 19 U/L (<=31); Alanine Aminotransfer ALT/SGPT 18 U/L (<=34); Albumin, Serum 4.0 g/dL (3.5-5.0); Alkaline Phosphatase 47 U/L (35-104); Anion Gap 12 (5-15); BUN 4 mg/dL (4-19); BUN/Creat Ratio 6.3 RATIO (10-20); Calcium,Total 9.3 mg/dL (7.6-11.0); Carbon Dioxide 24.9 mmol/L (21.0-32.0); Chloride 104 mmol/L (98-108); Globulin 2.8 g/dL (2.2-4.2); Glucose 96 mg/dL (70-99); Lipase 37 U/L (13-75); Potassium 3.1 mmol/L (3.3-5.1)
[2025-04-05 11:36] LABS: Mucous, Urine 0 SEEN /hpf (<or=2+); Red Blood Cells-Urine 0 SEEN /hpf (0-5); Squamous Epithelial Cells - UA 0 SEEN /hpf (5-10)
[2025-04-05 11:38] VITALS: BP 147/97; PULSE 94; RESP 16; O2SAT 99
[2025-04-05 11:40] LABS: Color, Urine Straw (Yellow); Glucose, Dipstick Normal (Normal); Ketone-Dipstick Negative (Negative); Leukocyte Esterase-Dipstick Negative /ul (Negative); Nitrite-Dipstick Negative (Negative); Occult Blood-Urine Negative /ul (Negative); Protein-Dipstick Negative (Negative); Specific Gravity, Urine 1.015 (1.002-1.030); Urine Bilirubin Dipstick Negative (Negative)
[2025-04-05 12:11] VITALS: BP 141/97; PULSE 88; RESP 16; TEMP 36.6; O2SAT 100
[2025-04-05 12:23] LABS: Barbiturate Urine NEGATIVE (< 200 ng/mL); Benzodiazepine Urine NEGATIVE (< 200 ng/mL); PCP Urine NEGATIVE (< 25 ng/mL); THC Urine PRESUMPTIVE POSITIVE (< 50 ng/mL)
--- NOTE | 2025-04-05 14:08 | CM.ED ---
Social Work Reason for visit: No PCP Patient states that she was in the process of scheduling an appt in [place], however was accepting of [facility] provider list. No further needs identified at this time. Pamela Lynch, INSTALLATION ENGINEER, JEWEL [employer]ER [employer]GER
== END 2025-04-05 12:21 | disposition home or self-care (01) ==
PROVIDERS: Emergency Provider Surgery; Visit Provider Surgery
DX: R10.31 Right lower quadrant pain (principal); E87.6 Hypokalemia; I10 Essential (primary) hypertension; Z90.710 Acquired absence of both cervix and uterus; D64.9 Anemia, unspecified; Z90.49 Acquired absence of other specified parts of digestive tract; F32.A Depression, unspecified; Z79.899 Other long term (current) drug therapy
CPT/HCPCS: 74177; 80053; 80307; 81001; 83690; 85025; 96361; 96374; 96375; 99282; Q9967; J2405

== ENCOUNTER 2025-07-06 04:10 | Emergency (ER) | payer MEDICAID, SELFPAY ==
[2025-07-06 04:10] VITALS: BP 158/106; PULSE 100; RESP 19; TEMP 35.7; O2SAT 100; BMI 34.4
--- NOTE | 2025-07-06 04:24 | CT_ITS ---
PROCEDURE: CT/CT Chest, Abd, Pel w/Contrast
--- NOTE | 2025-07-06 04:24 | CT_ITS ---
PROCEDURE: CT/Brain/Head without Contrast
[2025-07-06] MEDS: 0.9% Normal Saline (1000mL) 1,000 ML 999 ML IV ×2 (04:43→06:34)
--- NOTE | 2025-07-06 04:43 | EX.ED.DYSGE1 ---
HPI History of Present Illness Chief Complaint: Abd Pain Informant: patient and spouse/S.O. Narrative Narrative: Patient 25-year-old female with history of substance abuse syndrome, gastroparesis, chronic abdominal pain presenting to the ER for worsening abdominal pain after a fall. Patient states she was at home and wearing socks when she slipped on the steps of the stairs which are carpeted. This caused her to tumble down 2 flights of stairs. She denies any loss of conscious. She states when she ultimately landed her hand that she put out to marsha struck her in the abdomen. She has been having worsening diffuse abdominal pain since. She does not think she hit her head denies any loss of consciousness. Also complaining of pain in her thoracic back. Denies any extremity pain or injury at this time. Did not take any for pain prior to arrival. States she did have a small episode of vomiting after this. Denies any black or blood in her vomit. Tried to take a shower with no relief. Is not on any blood thinners. Came in for further evaluation. [facility] Medical History Cholecystectomy planned Intractable nausea and vomiting Gastroparesis Cyclic vomiting syndrome History of alcohol abuse Ureteral stricture, left Retained ureteral stent Hypertension Depression Ureterolithiasis Ureter injury Non-smoker Endometrial cancer PCOS (polycystic ovarian syndrome) Home Medications ?Medication ?Instructions ?Recorded ?Last Taken ?Type gabapentin 600 mg tablet 600 mg PO TID #90 tabs 11/30/24 11/30/24 Rx [id number] PO 07/06/25 Unknown History Allergy/AdvReac Type Severity Reaction Status Date / Time ceftriaxone (From Rocephin) Allergy Hives Verified 07/06/25 04:11 promethazine (From Phenergan) Allergy Vomiting Verified 07/06/25 04:11 Ringer's solution,lactated Allergy Hives Verified 07/06/25 04:11 acetaminophen (From [place]) AdvReac Nausea Verified 07/06/25 04:11 hydrocodone (From [place]) AdvReac Nausea Verified 07/06/25 04:11 Family History Father No problems noted. Mother Anxiety and depression GERD (gastroesophageal reflux disease) Surgical History History of renal stent History of hysterectomy for cancer Social History household members: family Smoking Status: Never smoker alcohol intake: former substance use type: marijuana and other details: No marijuana use in the last month ROS ROS ED Constitutional Constitutional ED: Denies chills or fever(s) Cardiovascular Cardiovascular: Denies chest pain Respiratory/Chest Respiratory/Chest: Denies dyspnea Gastrointestinal Gastrointestinal: Reports abdominal pain, nausea and vomiting Musculoskeletal Musculoskeletal: Reports arthralgias, back pain and myalgias Integumentary Denies rash Neurologic Neurologic: Denies paresthesias or weakness Psychiatric Psychiatric: Reports anxiety Hematologic/Lymphatic Hematologic/Lymphatic: Denies easy bleeding or easy bruising EXAM Physical Exam Const Vital Signs: 07/06/25 04:10 07/06/25 05:00 07/06/25 06:10 Temperature 96.2 F L Temperature Source Temporal Pulse Rate 100 121 H Respiratory Rate 19 H 25 H Blood Pressure 158/106 H 179/119 H Blood Pressure Mean 123 139 Pulse Ox 100 98 100 Oxygen Delivery Method Room Air Nasal Cannula Room Air Oxygen Flow Rate (L/min) 2 07/06/25 06:41 Temperature Temperature Source Pulse Rate 110 H Respiratory Rate 23 H Blood Pressure 181/95 H Blood Pressure Mean 123 Pulse Ox 98 Oxygen Delivery Method Room Air Oxygen Flow Rate (L/min) Positive well nourished and well developed Constitutional Narrative: Patient crying out and moaning in pain General Appearance ED: well developed HEENT Reports TM's clear and moist mucous membranes HEENT Narrative: No signs of basilar skull fracture. No signs of facial trauma. No septal hematoma appreciated. Negative for trauma Tympanic Membrane ED: Yes TM's clear Eyes PERRL General Eye ED: Negative for scleral icterus Neck supple General: Negative for tenderness Chest Wall inspection of chest normal Chest Narrative: She has palpation over the sternum. No chest wall crepitus appreciated. Resp normal respiratory effort and clear to auscultation bilaterally Auscultation: Negative for rales, rhonchi or wheezes Cardio regular rate and regular rhythm GI GI Narrative: Surgical scars are well-healed on the abdomen. Abdomen nondistended. Normal bowel sounds present. Abdomen soft. Patient reports pain throughout the abdomen that does not seem to localize. No rebound tenderness present. Back/Spine no CVA tenderness Back/Spine Narrative: Diffuse lower thoracic tenderness including the spine and ribs. Thoracic Spine / Upper Back: thoracic spinal tenderness Lumbar Spine / Lower Back: Negative for lumbar spinal tenderness Extremity normal to inspection General Extremety ED: Negative for edema or tenderness General Extremity: Negative for edema Neuro oriented x3 Sensorium / Orientation: alert Motor Exam: Negative for general weakness Psych Mood & Affect: anxious and tearful Skin no rashes or lesions noted and no wounds MDM MDM MDM Narrative Medical decision making narrative: Patient evaluated for severe pain after tumbled down stairs. She states her arm struck her stomach. Is now after fact she also notes that her thoracic back is hurting. Patient is a history of chronic pain and is well-known to emergency room. she does not have any physical exam findings consistent with trauma such as hematoma, deformity and bedside FAST performed of the abdomen which does not show any fluid. Differential includes abdominal contusion, chronic pain flare, rib fracture, sternal fracture, intra-abdominal trauma such as liver or splenic laceration as well as intracranial. Given the mechanism did obtain CT imaging as well of the brain. Patient treated with fluids, 2 mg IV Haldol and 50 mcg of fentanyl. She does have some transient hypoxia with but recovers quickly. Lab work shows a leukocytosis of 14.6. Suspect this is reactive. Hemoglobin is normal. Platelets are normal. No left shift present. CMP shows elevated anion gap of 17, bicarb of 20 and mild hyperglycemia with a glucose of 179. Will add on BHB and VBG looking for metabolic acidosis or possible new onset diabetes/DKA. This would not would be consistent with her clinical presentation however. Lipase is also added on. Urine studies are pending. CT imaging is pending however I do not see any acute traumatic process on CT of the brain or major abnormality such as pneumothorax, liver laceration or splenic laceration on my review of the chest abdomen pelvis. BHB only minimally elevated at 0.8 which is not consistent with DKA. pH is normal and VBG largely normal. Patient is ordered second liter of IV fluid. Tachycardia and blood pressure slowly improving. CT of the brain does not show any acute process. Patient signed out to oncoming physician for CT results and final disposition. Anticipate if there is no acute traumatic injury patient can be discharged home. Lab Data Attestation: I reviewed the patient's lab results. Labs: Laboratory Results - last 24 hr 07/06/25 04:40 WBC 14.6 H RBC 4.86 Hgb 12.2 Hct 38.3 MCV 78.8 L MCH 25.1 L MCHC 31.9 L RDW Std Deviation 48.8 H RDW Coeff of [place]oz 17.3 H Plt Count 401 MPV 8.9 Immature Gran % (Auto) 0.300 Neut % (Auto) 92.1 H Lymph % (Auto) 4.8 L [place] % (Auto) 2.5 Eos % (Auto) 0.0 Baso % (Auto) 0.3 Absolute Neuts (auto) 13.4 H Absolute Lymphs (auto) 0.70 L Nucleated RBC % 0 PT 13.5 INR 1.0 APTT 23.4 L Sodium 137 Potassium 3.8 Chloride 100 Carbon Dioxide 20.3 L Anion Gap 17 H BUN 11 Creatinine 0.93 Estim Creat Clear Calc 112.23 Est GFR (MDRD) Non-Af 87 BUN/Creatinine Ratio 11.6 Glucose 179 H Calcium 9.8 Total Bilirubin 0.52 Direct Bilirubin 0.19 AST 20 ALT 16 Alkaline Phosphatase 71 Total Protein 8.0 Albumin 4.6 Globulin 3.4 Lipase 18 b-Hydroxybutyric mmol/L 0.8 H Ethyl Alcohol < 10.1 ABG Data ABG results: ABG 07/06/25 06:16 Specimen Type TAQUERIA Sample Site Not entered VBG pH 7.37 VBG pO2 34 VBG HCO3 25 VBG Total CO2 26 VBG O2 Sat (Calc) 62 VBG Base Excess -1 POC Mix VBG pCO2 Pt Tmp 42.6 O2 Delivery Device Not entered Radiography Diagnostic Testing: Clinical Impression(s) from Imaging Studies Brain CT 07/06/25 04:24 IMPRESSION: No intracerebral or extra-axial hemorrhage. No acute cerebrovascular insult. If clinical symptoms persist, further evaluation with MRI may be considered as clinically warranted. Reading Location: [place] [address] Rhythm Strip Rhythm Strip: Sinus Tach Rate: 107 Ectopy: None EKG Initial EKG: Attestation: I personally reviewed and interpreted this EKG as follows: Interpretation: Sinus Tachycardia Comments: Sinus tachycardia rate 107 bpm Normal axis Incomplete right bundle-branch block Normal ST segments Prior EKG tracings: available for review Prior: Unchanged Discharge Plan Triage Chief Complaint: Abd Pain ED Provider: Patti Santos Dx/Rx/DC Orders Clinical Impression: Abdominal pain, Fall down stairs Prescriptions: No Action gabapentin 600 mg tablet 600 mg PO TID Qty: 90 2RF [id number] [[place]] PO Stand Alone Forms: ED Work / School Excuse Primary Care Provider: Care Physician,No Primary Referrals: Care Physician,No Primary [Primary Care Provider, Medical] Print Language: Bengali
[2025-07-06] MEDS: fentaNYL 100 MCG/2 ML Ampul 50 MCG IV (04:45)
[2025-07-06 04:51] LABS: Hematocrit 38.3 % (37-47); Hemoglobin 12.2 g/dL (12.0-15.0); Immature Granulocytes Count 0.040 X10^3/uL (0.0-0.0); Mean Corp Hgb Conc 31.9 g/dL (32-36); Mean Corpuscular Volume 78.8 fL (81-99); Mean Platelet Vol. 8.9 fl (6.2-12.0); NRBC Flagged by Analyzer 0 % (0-5); Platelet Count 401 K/mm3 (150-450); RBC Distribution Width CV 17.3 % (11.6-14.6); RBC Distribution Width SD 48.8 fl (35.1-43.9); Red Blood Count 4.86 M/mm3 (4.2-5.4); White Blood Count 14.6 K/mm3 (4.4-11.0)
[2025-07-06 05:00] VITALS: O2SAT 98
[2025-07-06 05:07] LABS: Prothrombin Time (Protime)PT. 13.5 SECONDS (11.7-14.9)
[2025-07-06 05:08] LABS: Partial Thromboplast Time 23.4 Seconds (24.1-36.2)
[2025-07-06 05:15] LABS: AST(SGOT) 20 U/L (<=31); Alanine Aminotransfer ALT/SGPT 16 U/L (<=34); Albumin, Serum 4.6 g/dL (3.5-5.0); Alkaline Phosphatase 71 U/L (35-104); Anion Gap 17 (5-15); BUN 11 mg/dL (4-19); BUN/Creat Ratio 11.6 RATIO (10-20); Bilirubin, Direct 0.19 mg/dL (0.00-0.30); Calcium,Total 9.8 mg/dL (7.6-11.0); Carbon Dioxide 20.3 mmol/L (21.0-32.0); Chloride 100 mmol/L (98-108); Estimated Creatinine Clearance 112.23 ml/min (50-250); Globulin 3.4 g/dL (2.2-4.2); Glucose 179 mg/dL (70-99); Potassium 3.8 mmol/L (3.3-5.1)
[2025-07-06 05:32] LABS: Alcohol, Blood (Medical)-Serum < 10.1 mg/dL (<=10.0)
[2025-07-06 06:10] VITALS: BP 179/119; PULSE 121; RESP 25; O2SAT 100
[2025-07-06 06:20] LABS: SITE Not entered; VBG BASE EXCESS -1 mmol/L (-1.0-3.5); VBG PO2 34 mmHg (25-40); VBG SO2 62 % (50-70); VBG TCO2 26 mmol/L (23-33)
[2025-07-06 06:22] LABS: BETA-HYDROXYBUTYRATE 0.8 mmol/L (0.0-0.3); Lipase 18 U/L (13-75)
[2025-07-06 06:41] VITALS: BP 181/95; PULSE 110; RESP 23; O2SAT 98
--- NOTE | 2025-07-06 07:50 | EKG12_ITS ---
Test Reason : CP
[2025-07-06 08:00] VITALS: BP 140/99; PULSE 104; RESP 17; O2SAT 98
[2025-07-06 08:33] VITALS: BP 140/99; PULSE 106; RESP 21; TEMP 36.6; O2SAT 100
--- NOTE | 2025-07-06 08:38 | ED.RN ---
pt requested d/c papers
== END 2025-07-06 08:40 | disposition home or self-care (01) ==
PROVIDERS: Emergency Provider Emergency Medicine; Visit Provider Emergency Medicine
DX: R10.9 Unspecified abdominal pain (principal); Z90.710 Acquired absence of both cervix and uterus; I10 Essential (primary) hypertension; W10.9XXA Fall (on) (from) unspecified stairs and steps, initial encounter; Y92.009 Unspecified place in unspecified non-institutional (private) residence as the place of occurrence of the external cause; Z90.49 Acquired absence of other specified parts of digestive tract; S40.012A Contusion of left shoulder, initial encounter; S50.02XA Contusion of left elbow, initial encounter; W18.2XXA Fall in (into) shower or empty bathtub, initial encounter; Y93.E1 Activity, personal bathing and showering; Z85.89 Personal history of malignant neoplasm of other organs and systems; M62.830 Muscle spasm of back
CPT/HCPCS: 70450; 71260; 72100; 73030; 73080; 74177; 80048; 80076; 82010; 82077; 82803; 83690; 85025; 85610; 85730; 93005; 96361; 96372; 96374; 96375; 99282; 99283; Q9967; A4216

== ENCOUNTER 2025-07-06 14:13 | Emergency (ER) | payer MEDICAID, SELFPAY ==
[2025-07-06 14:13] VITALS: BP 116/87; PULSE 123; RESP 18; TEMP 36.7; O2SAT 97
[2025-07-06 16:13] VITALS: BP 126/84; PULSE 113
[2025-07-06] MEDS: fentaNYL 100 MCG/2 ML Ampul 50 MCG IM (16:35)
[2025-07-06] MEDS: Lidocaine 5% Patch 1 PATCH TOPICAL (16:36)
--- NOTE | 2025-07-06 16:40 | RAD_ITS ---
PROCEDURE: RAD/Elbow min 3 Views
--- NOTE | 2025-07-06 16:40 | RAD_ITS ---
PROCEDURE: RAD/Lumbar Spine 2 or 3 Views
--- NOTE | 2025-07-06 16:40 | RAD_ITS ---
PROCEDURE: RAD/Shoulder min 2 Views
--- NOTE | 2025-07-06 16:44 | EX.ED.GENINJ ---
HPI History of Present Illness Chief Complaint: Other, Pain/Inj Narrative Narrative: Chief complaint and HPI: 25-year-old female with past medical history of substance abuse syndrome, gastroparesis, chronic abdominal pain presents to the ED after a mechanical fall. Patient states she slipped getting out of the shower. Complains of left shoulder and elbow pain as well as lumbar back pain. Denies hitting her head. No LOC. Not on blood thinners. Triage note states that she is having worsening abdominal pain however she denies this to me. States it is located all in her lumbar back. She denies any numbness or tingling. Denies any nausea or vomiting. Review of systems: See HPI Medications: As listed on the chart Allergies: As listed on the chart PFSH: Per chart Vital signs: As listed on the chart. Reviewed. Physical exam: Gen: A&O x3 Head: Normocephalic, atraumatic Eyes: No sclera icterus, conjunctiva clear, pupils equal bilateral ENT: Moist mucous membranes, atraumatic Neck: Trachea midline, full range of motion, nontender CV: RRR, no murmurs, no chest wall TTP Resp: Lungs CTA BL, no w/r/c GI: Abd soft, non-distended, non-tender, no r/r/g Musc: Full ROM, no deformity, no midline spinal TTP, no susannah step-offs, tender to palpation of the bilateral paraspinal musculature of the lumbar spine-palpation recreates her pain, DP/PT pulses +2 bilaterally, strength equal in all extremities, endorses pain to palpation of the left shoulder and elbow diffusely, no deformity, no external signs of trauma, radial pulses +2 bilaterally Skin: Warm, dry, intact Neuro: Alert, oriented, grossly intact, sensation intact, GCS 15 Psych: Cooperative, appropriate mood and affect [facility] Medical History Cholecystectomy planned Intractable nausea and vomiting Gastroparesis Cyclic vomiting syndrome History of alcohol abuse Ureteral stricture, left Retained ureteral stent Hypertension Depression Ureterolithiasis Ureter injury Non-smoker Endometrial cancer PCOS (polycystic ovarian syndrome) Home Medications ?Medication ?Instructions ?Recorded ?Last Taken ?Type gabapentin 600 mg tablet 600 mg PO TID #90 tabs 11/30/24 11/30/24 Rx [id number] PO 07/06/25 Unknown History Allergy/AdvReac Type Severity Reaction Status Date / Time ceftriaxone (From Rocephin) Allergy Hives Verified 07/06/25 14:17 promethazine (From Phenergan) Allergy Vomiting Verified 07/06/25 14:17 Ringer's solution,lactated Allergy Hives Verified 07/06/25 14:17 acetaminophen (From [place]) AdvReac Nausea Verified 07/06/25 14:17 hydrocodone (From [place]) AdvReac Nausea Verified 07/06/25 14:17 Family History Father No problems noted. Mother Anxiety and depression GERD (gastroesophageal reflux disease) Surgical History History of renal stent History of hysterectomy for cancer Social History household members: family Smoking Status: Never smoker alcohol intake: former substance use type: marijuana and other details: No marijuana use in the last month EXAM Physical Exam Const Vital Signs: 07/06/25 14:13 07/06/25 16:13 07/06/25 17:02 Temperature 98.1 F Temperature Source Temporal Pulse Rate 123 H 113 H Respiratory Rate 18 Respiratory Effort Normal Non-Labored Respiratory Pattern Normal Blood Pressure 116/87 H 126/84 H Blood Pressure Mean 96 98 Pulse Ox 97 Oxygen Delivery Method Room Air 07/06/25 18:00 07/06/25 18:08 Temperature 98.1 F Temperature Source Pulse Rate 113 H Respiratory Rate 18 Respiratory Effort Respiratory Pattern Blood Pressure 132/94 H 132/94 H Blood Pressure Mean 106 106 Pulse Ox 97 Oxygen Delivery Method MDM MDM MDM Narrative Medical decision making narrative: 25-year-old female with past medical history of substance abuse syndrome, gastroparesis, chronic abdominal pain presents to the ED after a mechanical fall. Patient states she slipped getting out of the shower. Complains of left shoulder and elbow pain as well as lumbar back pain. Denies hitting her head. No LOC. Not on blood thinners. Triage note states that she is having worsening abdominal pain however she denies this to me. States it is located all in her lumbar back. On chart review, patient was seen earlier in our emergency department for abdominal pain after mechanical fall. She was endorsing thoracic back pain at that time. On chart review she had laboratory workup with a new onset diabetes/DKA rule out. She had CT brain, chest, abdomen, pelvis performed without any acute traumatic injury. Differential diagnosis includes but is not limited to myofascial spasm, contusion, fracture. I do not think any laboratory workup is needed given this was purely mechanical fall and she had laboratory workup earlier. Patient states she has allergy to Toradol although not listed on allergy medication. IM fentanyl and lidocaine patch ordered. X-ray of the shoulder, elbow, lumbar back ordered. X-ray of the shoulder, elbow, lumbar spine were personally reviewed interpreted by me, ED physician. No obvious fracture or dislocation. Radiology in agreement. Suspect patient's pain is secondary to contusion as well as muscle spasm. It was reported to me by nursing that patient began having nausea and vomiting after fentanyl. Likely a side effect. Zofran ordered. Sobbing some back pain therefore Flexeril ordered. on reevaluation, patient states that she does not want the Flexeril or the Zofran. She would like to discharge home. She declined a prescription for a muscle relaxer. Recommended Tylenol and ibuprofen as needed for pain, IcyHot, heating pad. Return back to the ED if symptoms change or worsen. Follow-up with PCP. She confirmed understand the plan. Patient able to discharge home. Impression: 1. Mechanical fall 2. Left shoulder contusion 3. Left elbow contusion 4. Back spasm Radiography Diagnostic Testing: Clinical Impression(s) from Imaging Studies Elbow X-Ray 07/06/25 16:40 IMPRESSION: No acute fracture or dislocation. Reading Location: [facility] Lumbar Spine X-Ray 07/06/25 16:40 IMPRESSION: No evidence of acute fracture or traumatic malalignment. Reading Location: [facility] Shoulder X-Ray 07/06/25 16:40 IMPRESSION: No acute fracture or dislocation. Reading Location: [facility] Discharge Plan Triage Chief Complaint: Other, Pain/Inj ED Provider: Yair Cano Dx/Rx/DC Orders Prescriptions: No Action gabapentin 600 mg tablet 600 mg PO TID Qty: 90 2RF [id number] [Creon] PO Primary Care Provider: Care Physician,No Primary Referrals: Care Physician,No Primary [Primary Care Provider, Medical] Print Language: Citizen Of [place]
[2025-07-06 18:00] VITALS: BP 132/94
[2025-07-06 18:08] VITALS: BP 132/94; PULSE 113; RESP 18; TEMP 36.7; O2SAT 97
== END 2025-07-06 18:16 | disposition home or self-care (01) ==
PROVIDERS: Emergency Provider Surgery; Visit Provider Surgery
DX: S40.012A Contusion of left shoulder, initial encounter (principal); Z90.710 Acquired absence of both cervix and uterus; I10 Essential (primary) hypertension; S50.02XA Contusion of left elbow, initial encounter; W18.2XXA Fall in (into) shower or empty bathtub, initial encounter; Y93.E1 Activity, personal bathing and showering; Z90.49 Acquired absence of other specified parts of digestive tract; Z85.89 Personal history of malignant neoplasm of other organs and systems; M62.830 Muscle spasm of back
CPT/HCPCS: 72100; 73030; 73080

== ENCOUNTER 2025-07-12 08:08 | Emergency (ER) | payer MEDICAID, SELFPAY ==
[2025-07-12 08:09] VITALS: BP 156/97; PULSE 108; RESP 18; TEMP 37.1; O2SAT 100
--- NOTE | 2025-07-12 08:10 | CT_ITS ---
PROCEDURE: CT/Abdomen/Pelvis W IV Cont ONLY
--- NOTE | 2025-07-12 08:37 | ED.VIS.GI ---
HPI HPI - GI History of Present Illness Chief Complaint: Abd Pain PFSH PFSH Medical History Cholecystectomy planned Intractable nausea and vomiting Gastroparesis Cyclic vomiting syndrome History of alcohol abuse Ureteral stricture, left Retained ureteral stent Hypertension Depression Ureterolithiasis Ureter injury Non-smoker Endometrial cancer PCOS (polycystic ovarian syndrome) Home Medications ?Medication ?Instructions ?Recorded ?Last Taken ?Type gabapentin 600 mg tablet 600 mg PO TID #90 tabs 11/30/24 11/30/24 Rx [id number] PO 07/06/25 Unknown History Allergy/AdvReac Type Severity Reaction Status Date / Time ceftriaxone (From Rocephin) Allergy Hives Verified 07/06/25 14:17 promethazine (From Phenergan) Allergy Vomiting Verified 07/06/25 14:17 Ringer's solution,lactated Allergy Hives Verified 07/06/25 14:17 acetaminophen (From [place]) AdvReac Nausea Verified 07/06/25 14:17 hydrocodone (From [place]) AdvReac Nausea Verified 07/06/25 14:17 Family History Father No problems noted. Mother Anxiety and depression GERD (gastroesophageal reflux disease) Surgical History History of renal stent History of hysterectomy for cancer Social History household members: family Smoking Status: Never smoker alcohol intake: former substance use type: marijuana and other details: No marijuana use in the last month ROS ROS ED Constitutional Constitutional ED: Denies chills or fever(s) Eyes Eyes: Denies change in vision or diplopia ENT ENT ED: Denies rhinorrhea or sore throat Cardiovascular Cardiovascular: Denies chest pain or palpitations Respiratory/Chest Respiratory/Chest: Denies cough or dyspnea Gastrointestinal Gastrointestinal: Reports abdominal pain, diarrhea, nausea and vomiting; Denies hematemesis, hematochezia or melena Genitourinary Genitourinary ED: Denies dysuria or hematuria Musculoskeletal Musculoskeletal: Denies back pain or neck pain Integumentary Denies abscess or rash Neurologic Neurologic: Denies headache(s), paresthesias or weakness Psychiatric Psychiatric: Denies suicidal thoughts EXAM Physical Exam Const Vital Signs: 07/12/25 08:09 07/12/25 10:09 Temperature 98.7 F Temperature Source Oral Pulse Rate 108 H 64 Respiratory Rate 18 18 Blood Pressure 156/97 H 134/78 H Blood Pressure Mean 116 96 Pulse Ox 100 97 Oxygen Delivery Method Room Air Room Air Positive well nourished and well developed Constitutional Narrative: Mild acute painful distress moaning in pain. Keenly alert. Cooperative able to converse. General Appearance ED: well developed HEENT Reports moist mucous membranes normocephalic and atraumatic Eyes PERRL and EOMs intact bilaterally Neck full ROM and supple Resp normal respiratory effort and clear to auscultation bilaterally Cardio regular rate, regular rhythm and no murmurs GI non-distended GI Narrative: Bowel sounds present but hypoactive. Abdomen soft. Diffusely tender but severely so throughout lower abdomen. Exam is nonfocal. No Romel sign no Moore Moore sign no pulsatile mass. Auscultation: hypoactive bowel sounds Palpation: soft Back/Spine no CVA tenderness General Back: other FROM Extremity normal to inspection General Extremety ED: Negative for edema, pulses abnormal or tenderness General Extremity: Negative for edema or pulses abnormal Neuro oriented x3, CN's II-XII intact bilaterally and no sensory deficits noted Sensorium / Orientation: awake and alert Motor Exam: strength 5/5 throughout Psych Mood & Affect: anxious Skin no rashes or lesions noted and no wounds MDM MDM MDM Narrative Medical decision making narrative: Assessment: The patient is a 25-year-old female with PMH of uterine cancer s/p surgery, gastroparesis, cyclic vomiting syndrome, and prior cholecystectomy presenting for acute lower abdominal and pelvic pain with vomiting and diarrhea since 06:00. Labs reveal leukocytosis to 14.2, hypokalemia, and low bicarbonate likely secondary to vomiting/diarrhea. Abdominopelvic CT shows no acute abnormality or obstruction. Given normal imaging and her history, current symptoms are most consistent with an exacerbation of functional gastroparesis/cyclic vomiting rather than surgical abdomen. Plan: - IV crystalloid bolus administered - Morphine for analgesia - Reglan for pro-motility and antiemesis On reeval, still complains of symptoms, so treatment followed: - Thorazine plus Benadryl for cyclic vomiting regimen - Toradol for additional analgesia, which she refused per staff - Patient elected to leave prior to formal discharge; emck-nwbmlgo-deurmzd-advice documented Diagnostics: - Labs: WBC 14.2 K/?L (leukocytosis); potassium low; bicarbonate low; liver enzymes normal - CT abdomen/pelvis: no acute abnormality, no evidence of obstruction. Independently interpreted by me, Moose Liu. Reevaluations: - Re-exam after initial fluids, morphine, and Reglan: patient reports persistent pain and vomiting - Re-exam after Thorazine/Benadryl and Toradol: patient decided to sign out prior to discharge; no further assessment possible Lab Data Attestation: I reviewed the patient's lab results. Labs: Laboratory Results - last 24 hr 07/12/25 07/12/25 09:04 10:09 WBC 14.2 H RBC 4.75 Hgb 12.4 Hct 37.8 MCV 79.6 L MCH 26.1 L MCHC 32.8 RDW Std Deviation 48.5 H RDW Coeff of [place] 17.0 H Plt Count 330 MPV 8.9 Immature Gran % (Auto) 0.400 Neut % (Auto) 84.4 H Lymph % (Auto) 9.9 L [place] % (Auto) 4.5 Eos % (Auto) 0.5 Baso % (Auto) 0.3 Absolute Neuts (auto) 12.0 H Absolute Lymphs (auto) 1.40 Nucleated RBC % 0 Sodium 139 Potassium 3.2 L Chloride 104 Carbon Dioxide 18.5 L Anion Gap 17 H BUN 9 Creatinine 0.77 Est GFR (MDRD) Non-Af 110 BUN/Creatinine Ratio 11.4 Glucose 136 H Calcium 9.7 Total Bilirubin 0.49 AST 17 ALT 11 Alkaline Phosphatase 62 Total Protein 8.2 Albumin 4.6 Globulin 3.6 Albumin/Globulin Ratio 1.3 Urine Color Yellow Urine Clarity Clear Urine pH 6.0 Ur Specific [place] 1.020 Urine Protein 30 H Urine Glucose (UA) Normal Urine Ketones Negative Urine Occult Blood 10 H Urine Nitrite Negative Urine Bilirubin Negative Urine Urobilinogen Normal Ur Leukocyte Esterase Negative Urine RBC 0 SEEN Urine WBC 0 SEEN Ur Squamous Epith Cells 0-5 SEEN Urine Bacteria 0 SEEN Urine Mucus 0 SEEN Radiography Diagnostic Testing: Clinical Impression(s) from Imaging Studies Abdomen/Pelvis CT 07/12/25 08:10 IMPRESSION: Status post hysterectomy, cholecystectomy and appendectomy. No acute abnormality is seen. Reading Location: [facility] Discharge Plan Triage Chief Complaint: Abd Pain ED Provider: Moose Liu Dx/Rx/DC Orders Clinical Impression: Acute nausea with nonbilious vomiting, Chronic diarrhea, Acute bilateral lower abdominal pain, Gastroparesis, Acute hypokalemia Prescriptions: No Action gabapentin 600 mg tablet 600 mg PO TID Qty: 90 2RF [id number] [Creon] PO Primary Care Provider: Geno Chandler Referrals: Care Physician,No Primary [Non-Staff, Medical] Print Language: [place] Disposition Disposition: [facility]op[facility] Discharge Date/Time: 07/12/25 11:28
[2025-07-12] MEDS: 0.9% Normal Saline (1000mL) 1,000 ML 999 ML IV (09:02)
[2025-07-12 09:21] LABS: Hematocrit 37.8 % (37-47); Hemoglobin 12.4 g/dL (12.0-15.0); Immature Granulocytes Count 0.060 X10^3/uL (0.0-0.0); Mean Corp Hgb Conc 32.8 g/dL (32-36); Mean Corpuscular Volume 79.6 fL (81-99); Mean Platelet Vol. 8.9 fl (6.2-12.0); NRBC Flagged by Analyzer 0 % (0-5); Platelet Count 330 K/mm3 (150-450); RBC Distribution Width CV 17.0 % (11.6-14.6); RBC Distribution Width SD 48.5 fl (35.1-43.9); Red Blood Count 4.75 M/mm3 (4.2-5.4); White Blood Count 14.2 K/mm3 (4.4-11.0)
[2025-07-12 09:41] LABS: AST(SGOT) 17 U/L (<=31); Alanine Aminotransfer ALT/SGPT 11 U/L (<=34); Albumin, Serum 4.6 g/dL (3.5-5.0); Alkaline Phosphatase 62 U/L (35-104); Anion Gap 17 (5-15); BUN 9 mg/dL (4-19); BUN/Creat Ratio 11.4 RATIO (10-20); Calcium,Total 9.7 mg/dL (7.6-11.0); Carbon Dioxide 18.5 mmol/L (21.0-32.0); Chloride 104 mmol/L (98-108); Globulin 3.6 g/dL (2.2-4.2); Glucose 136 mg/dL (70-99); Potassium 3.2 mmol/L (3.3-5.1)
[2025-07-12 10:09] VITALS: BP 134/78; PULSE 64; RESP 18; O2SAT 97
[2025-07-12 10:14] LABS: Mucous, Urine 0 SEEN /hpf (<or=2+); Red Blood Cells-Urine 0 SEEN /hpf (0-5)
[2025-07-12 10:22] LABS: Glucose, Dipstick Normal (Normal); Ketone-Dipstick Negative (Negative); Leukocyte Esterase-Dipstick Negative /ul (Negative); Nitrite-Dipstick Negative (Negative); Occult Blood-Urine 10 /ul (Negative); Protein-Dipstick 30 mg/dl (Negative); Specific Gravity, Urine 1.020 (1.002-1.030); Urine Bilirubin Dipstick Negative (Negative)
[2025-07-12] MEDS: CHLORPROMAZINE IV (10:38)
[2025-07-12] MEDS: NORMAL SALINE 0.9% IV (10:38)
[2025-07-12] MEDS: DiphenhydrAMINE 50 MG/ML Syringe 25 MG IV (10:38)
[2025-07-12 10:48] LABS: Color, Urine Yellow (Yellow)
[2025-07-12 10:55] LABS: Squamous Epithelial Cells - UA 0-5 SEEN /hpf (5-10)
--- NOTE | 2025-07-12 11:23 | ED.RN ---
PT FRIEND AT BEDSIDE STATES PT NEEDS TO LEAVE IMMEDIATELY DUE TO HER FRIEND DYING. PT WANTS MEDICATIONS THAT ARE INFUSING STOPPED AND IV TAKEN OUT IMMEDIATELY. IV DISCONTINUED BY THIS RN. PT JUMPED OUT OF BED AND AMBULATED INDEPENDENTLY TO THE [facility]ONT DOOR WHERE SHE IS PICKED UP BY HER FRIEND. NOTIFIED OF PT ELOPEMENT.
== END 2025-07-12 11:28 | disposition left against medical advice (07) ==
PROVIDERS: Emergency Provider Emergency Medicine; Visit Provider Emergency Medicine
DX: R10.30 Lower abdominal pain, unspecified (principal); K52.9 Noninfective gastroenteritis and colitis, unspecified; E87.6 Hypokalemia; R10.20 Pelvic and perineal pain unspecified side; I10 Essential (primary) hypertension; K31.84 Gastroparesis; R11.2 Nausea with vomiting, unspecified; Z90.49 Acquired absence of other specified parts of digestive tract; Z90.710 Acquired absence of both cervix and uterus; Z85.41 Personal history of malignant neoplasm of cervix uteri
CPT/HCPCS: 74177; 80053; 81001; 85025; 96361; 96365; 96375; 99284; Q9967; A4216

== ENCOUNTER 2025-07-20 10:15 | Emergency (ER) | payer MEDICAID, SELFPAY ==
[2025-07-20 10:17] VITALS: BP 145/91; PULSE 119; RESP 20; TEMP 36.8; O2SAT 100
[2025-07-20 10:18] VITALS: BMI 33.6
--- NOTE | 2025-07-20 10:25 | EDS_ITS ---
HPI History of Present Illness Chief Complaint: Chest Pain Informant: patient Onset/Context/Timing Onset: Today Context: Sudden Onset Timing: Continuous Quality: Sharp, stabbing Location: Substernal and pelvis Worsened by: Nothing Relieved by: Nothing Narrative Narrative: Patient presents with chest and pelvic pain that began today. Patient states it woke her up out of her sleep. Patient states it began suddenly. Patient describes it as sharp and stabbing. Patient states it is over the middle of her chest and diffuse across her pelvis. Patient states nothing makes it worse and nothing makes it better. Patient admits to some nausea and vomiting. Patient denies any dysuria, frequency, or hematuria. Patient denies any palpitations. Patient denies any hematemesis or coffee-ground emesis. [facility] Medical History Cholecystectomy planned Intractable nausea and vomiting Gastroparesis Cyclic vomiting syndrome History of alcohol abuse Ureteral stricture, left Retained ureteral stent Hypertension Depression Ureterolithiasis Ureter injury Non-smoker Endometrial cancer PCOS (polycystic ovarian syndrome) Home Medications Medication Instructions Recorded Last Taken Type gabapentin 600 mg tablet 600 mg PO TID #90 tabs 11/3007/19/25 Rx dicyclomine 10 mg capsule 20 mg (2 x 10 mg) PO TIDAC # 20 07/20/25 Unknown Rx CAPSULES exhjgk-jvnwreko-iitipyp 1 cap PO DAILY 07/20/2507/08 History (pork)36,000-114,000-180k unit capsule,del rel (Creon) ujqawv-yqmsfrqm-bgvshez 2 cap PO TID 07/20/25 History (pork)36,000-114,000-180k unit capsule,del rel (Creon) ondansetron 4 mg disintegrating 4 mg PO Q6H PRN PRN na usea/vomiting 07/20/25 07/19/25 History tablet ondansetron 4 mg disintegrating 4 mg PO Q8H PRN PRN Na usea #10 tabs 07/20/25 Unknown Rx tablet Allergy/AdvReac Type Severity Reaction Status Date / Time ceftriaxone (From Rocephin) Allergy Hives Verified 07/20/25 10:19 promethazine (From Phenergan) Allergy Vomiting Verified 07/20/25 10:19 Ringer's solution,lactated Allergy Hives Verified 07/20/25 10:19 hydrocodone (From Bunch) AdvReac Nausea Verified 07/20/25 10:19 Family History Father No problems noted. Mother Anxiety and depression GERD (gastroesophageal reflux disease) Surgical History History of renal stent History of hysterectomy for cancer Social History household members: family Smoking Status: Never smoker alcohol intake: former substance use type: marijuana and other details: No marijuana use in the last month ROS ROS ED Constitutional Constitutional ED: Denies chills or fever(s) Eyes Eyes: Denies blurry vision or change in vision ENT ENT ED: Denies rhinorrhea or sore throat Cardiovascular Cardiovascular: Reports chest pain; Denies palpitations Respiratory/Chest Respiratory/Chest: Denies cough or dyspnea Gastrointestinal Gastrointestinal: Reports abdominal pain, nausea and vomiting Genitourinary Genitourinary ED: Denies dysuria or hematuria Musculoskeletal Musculoskeletal: Denies back pain or neck pain Integumentary Denies abscess or rash Neurologic Neurologic: Denies headache(s) or weakness Allergic/Immunologic Allergic/Immunologic ED: Denies mouth swelling or urticaria EXAM Physical Exam Const Vital Signs: 07/20/25 10:17 07/20/25 10:25 07/20/25 11:16 Temperature 98.2 F 98.7 F Temperature Source Oral Oral Pulse Rate 119 H 116 H Respiratory Rate 20 H 15 Respiratory Effort Labored Blood Pressure 145/91 H 161/107 H Blood Pressure Mean 109 125 Pulse Ox 100 100 Oxygen Delivery Method Room Air Room Air 07/20/25 12:00 Temperature 97.8 F Temperature Source Oral Pulse Rate 106 H Respiratory Rate 20 H Respiratory Effort Blood Pressure 165/115 H Blood Pressure Mean 131 Pulse Ox 100 Oxygen Delivery Method Room Air Positive well nourished and well developed Constitutional Narrative: BMI is 33.7. General Appearance ED: well developed and NAD HEENT Reports moist mucous membranes Neck supple and no JVD Resp normal respiratory effort and clear to auscultation bilaterally Cardio regular rhythm Rate: tachycardic GI non-distended Palpation: soft and tender LLQ, RLQ and suprapubic; Negative for guarding or r ebound tenderness present Neuro oriented x3, CN's II-XII intact bilaterally and no sensory deficits noted Sensorium / Orientation: alert Motor Exam: strength 5/5 throughout Psych Mood & Affect: anxious MDM MDM MDM Narrative Medical decision making narrative: Differential diagnosis includes but is not limited to cardiac dysrhythmia, cardiac ischemia, pneumonia, pulmonary embolism, bronchitis, ureteral calculus, urinary tract infection, pancreatitis, gastroenteritis, and anxiety. EKG will be obtained to assess for cardiac dysrhythmia and cardiac ischemia. CTA of the chest will be obtained to assess for pulmonary embolism, pneumonia, and bronchitis. CT scan of the abdomen and pelvis will be obtained to assess for ureteral calculus. CBC will be obtained to assess for leukocytosis and anemia. Comprehensive metabolic profile will be obtained to assess for hepatic function, renal function, and electrolyte abnormality. Lipase will be obtained to assess for pancreatitis. High-sensitivity troponin will be obtained to assess for cardiac ischemia. Urinalysis will be obtained to assess for urinary tract infection and hematuria. History & Record Review Additional record(s) reviewed:: Prior ED visit and Prior labs Lab Data Attestation: I reviewed the patient's lab results. Lab results narrative: CBC was reviewed. There is a mild leukocytosis of 14.6. This is unchanged from previous results. Comprehensive metabolic profile was reviewed. CO2 was slightly low at 15.1. Anion gap was slightly elevated at 20. This is likely due from hyperventilation. Lipase was reviewed and was normal at 32. High- sensitivity troponin was reviewed and was less than 6. Urinalysis was reviewed. There is no evidence of urinary tract infection or hematuria. Labs: Laboratory Results - last 24 hr 07/20/25 07/20/25 10:55 12:07 WBC 14.6 H RBC 5.26 Hgb 13.4 Hct 44.1 MCV 83.8 MCH 25.5 L MCHC 30.4 L RDW Std Deviation 51.1 H RDW Coeff of Roz 16.7 H Plt Count 289 MPV 9.2 Immature Gran % (Auto) 0.300 Neut % (Auto) 80.0 H Lymph % (Auto) 13.7 L Kern % (Auto) 4.9 Eos % (Auto) 0.7 Baso % (Auto) 0.4 Absolute Neuts (auto) 11.7 H Absolute Lymphs (auto) 2.01 Nucleated RBC % 0 Sodium 138 Potassium 3.4 Chloride 103 Carbon Dioxide 15.1 L Anion Gap 20 H BUN 9 Creatinine 0.77 Estim Creat Clear Calc 133.93 Est GFR (MDRD) Non-Af 110 BUN/Creatinine Ratio 12.1 Glucose 105 H Calcium 10.3 Total Bilirubin 0.41 AST 17 ALT 12 Alkaline Phosphatase 62 Troponin T High Sens < 6 Total Protein 8.1 Albumin 4.6 Globulin 3.5 Albumin/Globulin Ratio 1.3 Lipase 32 Urine Color Straw Urine Clarity Clear Urine pH 8.0 Ur Specific [place] 1.010 Urine Protein Negative Urine Glucose (UA) Normal Urine Ketones 15 H Urine Occult Blood Negative Urine Nitrite Negative Urine Bilirubin Negative Urine Urobilinogen Normal Ur Leukocyte Esterase Negative Urine RBC 0 SEEN Urine WBC 0-5 SEEN Ur Squamous Epith Cells 0-5 SEEN Urine Bacteria 0 SEEN Urine Mucus 0 SEEN Radiography Diagnostic Testing: Clinical Impression(s) from Imaging Studies Abdomen/Pelvis CT 07/20/25 11:30 IMPRESSION: Status post cholecystectomy and appendectomy. Scattered sigmoid diverticula. Reading Location: [facility] Chest CTA 07/20/25 11:30 IMPRESSION: No acute abnormality is seen. Reading Location: [facility] CTA of the chest was obtained. There is no acute abnormality noted. This was interpreted by the radiologist. I also reviewed the CTA of the chest. I did not see any evidence of pulmonary embolism or aortic dissection. CT scan of the abdomen and pelvis was obtained. There is no acute intra- abdominal process. There are scattered diverticuli of the sigmoid colon this was interpreted by the radiologist. I also reviewed the CT scan of the abdomen and pelvis. I did not see any evidence of ureteral calculus or inflammatory process of the pelvis. EKG Initial EKG: Attestation: I personally reviewed and interpreted this EKG as follows: Interpretation: No Acute Injury Pattern and Sinus Tachycardia (108) Comments: EKG was obtained. On my independent interpretation, it showed a sinus tachycardia with a rate of 108. [place] interval, QRS interval, and QTc intervals were all normal. [place] was normal. There are no acute ST or T wave changes. Prior EKG tracings: available for review Prior: Unchanged (07/06/2025) Treatment and Re-Evaluation :: Patient was given IV fluids, morphine, and Zofran. Patient was given a repeat dose of morphine. Patient had minimal relief with this. Patient was given a dose of Bentyl. Patient was advised of her findings. Patient was given prescri ptions for Bentyl and Zofran. Patient was instructed to follow-up with her primary care physician in 5 to 7 days. Patient was instructed to return if worse in any way. Patient understood and was agreeable with the plan. All questions were answered. Discharge Plan Triage Chief Complaint: Chest Pain Other Complaint: Female C/O Lower Extremity Injury ED Provider: Josué Reinoso Dx/Rx/DC Orders Clinical Impression: Abdominal pain, Chest pain Instructions: ED Abdominal Pain Unkn Cause Fem, ED Chest Pain, Uncertain Cause Prescriptions: New ondansetron 4 mg tablet,disintegrating 4 mg PO Q8H PRN PRN (Reason: Nausea) Qty: 10 0RF dicyclomine 10 mg capsule 20 mg PO TIDAC Qty: 20 0RF No Action gabapentin 600 mg tablet 600 mg PO TID Qty: 90 2RF Creon 36,000-114,000- 180,000 unit capsule,delayed release(DR/EC) 2 cap PO TID Rx Instructions: administer with meals Creon 36,000-114,000- 180,000 unit capsule,delayed release(DR/EC) 1 cap PO DAILY Rx Instructions: administer with snacks ondansetron 4 mg tablet,disintegrating 4 mg PO Q6H PRN PRN (Reason: nausea/vomiting) Stand Alone Forms: ED Work / School Excuse Primary Care Provider: Care Physician,No Primary Referrals: Geno Chandler DO [Non-Staff, Family Practice] - 3-5 Days Print Language: Iraqi Disposition Disposition: Home, Self Care
--- NOTE | 2025-07-20 10:42 | EKG12_ITS ---
Test Reason : CP Blood Pressure : */* mmHG Vent. Rate : 108 BPM Atrial Rate : 108 BPM P-R Int : 156 ms QRS Dur : 92 ms QT Int : 326 ms P-R-T Axes : 59 74 39 degrees QTcB Int : 436 ms Sinus tachycardia Otherwise normal ECG Confirmed by MOIRA MARTINEZ, ZOYA ([id number]), photo editor GAGANDEEP CHU ([id number]) on 07/24/2025 8:29:03 AM Referred By: RENE/VICENTA Confirmed By: ZOYA PIZARRO MD
[2025-07-20] MEDS: 0.9% Normal Saline (1000mL) 1,000 ML 1000 ML IV (10:53)
[2025-07-20 11:05] LABS: Hematocrit 44.1 % (37-47); Hemoglobin 13.4 g/dL (12.0-15.0); Immature Granulocytes Count 0.040 X10^3/uL (0.0-0.0); Mean Corp Hgb Conc 30.4 g/dL (32-36); Mean Corpuscular Volume 83.8 fL (81-99); Mean Platelet Vol. 9.2 fl (6.2-12.0); NRBC Flagged by Analyzer 0 % (0-5); Platelet Count 289 K/mm3 (150-450); RBC Distribution Width CV 16.7 % (11.6-14.6); RBC Distribution Width SD 51.1 fl (35.1-43.9); Red Blood Count 5.26 M/mm3 (4.2-5.4); White Blood Count 14.6 K/mm3 (4.4-11.0)
[2025-07-20 11:16] VITALS: BP 161/107; PULSE 116; RESP 15; TEMP 37.1; O2SAT 100
[2025-07-20 11:24] LABS: Troponin T High Sensitivity < 6 ng/L (<=14)
[2025-07-20 11:27] LABS: AST(SGOT) 17 U/L (<=31); Alanine Aminotransfer ALT/SGPT 12 U/L (<=34); Albumin, Serum 4.6 g/dL (3.5-5.0); Alkaline Phosphatase 62 U/L (35-104); Anion Gap 20 (5-15); BUN 9 mg/dL (4-19); BUN/Creat Ratio 12.1 RATIO (10-20); Calcium,Total 10.3 mg/dL (7.6-11.0); Carbon Dioxide 15.1 mmol/L (21.0-32.0); Chloride 103 mmol/L (98-108); Estimated Creatinine Clearance 133.93 ml/min (50-250); Globulin 3.5 g/dL (2.2-4.2); Glucose 105 mg/dL (70-99); Lipase 32 U/L (13-75); Potassium 3.4 mmol/L (3.3-5.1)
--- NOTE | 2025-07-20 11:30 | CT_ITS ---
PROCEDURE: ABDOMEN/PELVIS WITHOUT CONT 07/20/2025 REASON FOR EXAM: PELVIC PAIN Prior hysterectomy. TECHNIQUE: Procedure Code: CTABDPEL Modality: CT Procedure: ABDOMEN/PELVIS WITHOUT CONT Noncontrast technique limits evaluation of the abdominal and pelvic viscera. Coronal and Sagittal reconstruction series were provided. One or more dose reduction techniques were used (e.g., Automated exposure control, adjustment of the mA and/or kV according to patient size, use of iterative reconstruction technique). RADIATION DOSE SUMMARY: CTDlvol: 13.5 mGy DLP: 1502.05 mGycm COMPARISON: Prior study dated July 12, 2025. FINDINGS: Lung bases: Lung bases are clear. Liver: Normal size. No obvious mass. Gallbladder: Surgically absent. Spleen: Normal size. Pancreas: Normal size. No surrounding inflammation. Adrenals: Unremarkable Kidneys: No urolithiasis. No hydronephrosis. Bladder: Unremarkable Reproductive Organs: Prior hysterectomy. Adnexal regions are unremarkable. Bowel: Colonic diverticulosis without diverticulitis. Appendix: The appendix is not identified. There is no inflammatory process identified in the right lower quadrant to suggest appendicitis. Lymph nodes: Unremarkable. Vasculature: The abdominal aorta and IVC contours are normal. Noncontrast technique limits evaluation. Peritoneum / Retroperitoneum: Unremarkable Bones: Unremarkable CT/Abdomen/Pelvis without Cont IMPRESSION: Status post cholecystectomy and appendectomy. Scattered sigmoid diverticula. Reading Location: [place] [id number]
--- NOTE | 2025-07-20 11:30 | CT_ITS ---
PROCEDURE: CTA CHEST W/WO CONTRAST 07/20/2025 REASON FOR EXAM: CHEST PAIN, TACHYCARDIA TECHNIQUE: Procedure Code: CTCTACHWW Modality: CT Procedure: CTA CHEST W/WO CONTRAST Multiplanar Sagittal and Coronal images were obtained. 3D post processing was performed CONTRAST: Isovue 3 7 VOLUME: 100 mL One or more dose reduction techniques were used (e.g., Automated exposure control, adjustment of the mA and/or kV according to patient size, use of iterative reconstruction technique). RADIATION DOSE SUMMARY: CTDlvol: 13 mGy DLP: 1502.05 mGycm COMPARISON: July 06, 2025. FINDINGS: Hardware: None Lymph nodes: Small benign-appearing mediastinal lymph nodes. Small bilateral axillary lymph nodes. Heart: The heart is nonenlarged. No coronary calcification. Thoracic Aorta: No thoracic aortic aneurysm or dissection. Pulmonary Vessels: No evidence of pulmonary embolism. Lungs and Airways: Unremarkable Pleura: Unremarkable Upper Abdomen: Status post cholecystectomy. Bones: Bone windows are unremarkable. CT/CTA Chest W/WO Contrast IMPRESSION: No acute abnormality is seen. Reading Location: [place] [id number]
[2025-07-20 12:00] VITALS: BP 165/115; PULSE 106; RESP 20; TEMP 36.6; O2SAT 100
[2025-07-20 12:16] LABS: Mucous, Urine 0 SEEN /hpf (<or=2+); Red Blood Cells-Urine 0 SEEN /hpf (0-5)
[2025-07-20 12:17] LABS: Color, Urine Straw (Yellow); Glucose, Dipstick Normal (Normal); Ketone-Dipstick 15 mg/dl (Negative); Leukocyte Esterase-Dipstick Negative /ul (Negative); Nitrite-Dipstick Negative (Negative); Occult Blood-Urine Negative /ul (Negative); Protein-Dipstick Negative (Negative); Specific Gravity, Urine 1.010 (1.002-1.030); Urine Bilirubin Dipstick Negative (Negative)
[2025-07-20 12:25] LABS: Squamous Epithelial Cells - UA 0-5 SEEN /hpf (5-10)
--- NOTE | 2025-07-20 12:25 | CM.ED ---
Social work Reason for referral: care plan Referral source: Leeann Matias RN SW received referral to start the EDCP process for patient due to patient's number of visits. Per chart review, patient 7 visits since 03/22/25 (03/22, 03/27, 04/05, 07/06, 07/06, 07/12, 07/20). Leeann RN states patient consistently leaves after patient does not receive what patient wants (ie. pain medication). SW entered patient's room, introducing self and role at [facility]. Patient was observed hunched over in pain on the bed, moaning loudly. Patient welcomed SW visit and patient stated being in "so much pain I can't stand it." SW spoke with patient about the amount of times patient has been in the ED lately, but patient was unable to engage in conversation. Patient began dry heaving and eventually vomited, stating it was "due to the pain." Patient's significant other, Moy, presented at bedside and stated patient awoke from a " sleep" today in pain. Moy stated patient having a PCP appointment with ZION Rios at [facility] that patient was unable to attend, as well as a GI doctor appointment on 07/11 that patient was unable to attend due to "teeth pain." Moy stated patient has been struggling greatly with pain. Per request, SW will draft an EDCP and begin this process should it be needed. Jagruti Shannon, CONFERENCE MANAGER, RV TECHNICIAN
[2025-07-20 13:00] VITALS: BP 153/105; PULSE 94; RESP 19; O2SAT 100
[2025-07-20 13:11] VITALS: BP 169/98; PULSE 94; RESP 19; TEMP 36.6; O2SAT 100
[2025-07-20 13:36] LABS: Troponin T High Sens 2 HR < 6 ng/L (<=14)
== END 2025-07-20 13:11 | disposition home or self-care (01) ==
PROVIDERS: Emergency Provider Emergency Medicine; Visit Provider Emergency Medicine
DX: R07.9 Chest pain, unspecified (principal); R11.2 Nausea with vomiting, unspecified; R10.9 Unspecified abdominal pain; I10 Essential (primary) hypertension; Z90.49 Acquired absence of other specified parts of digestive tract; Z85.89 Personal history of malignant neoplasm of other organs and systems
CPT/HCPCS: 71275; 74176; 80053; 81001; 83690; 84484; 85025; 93005; 96361; 96372; 96374; 96375; 99285; Q9967; A4216; J2405